=== PATIENT | female | born 1965 | race Caucasian/White ===

== ENCOUNTER 2023-02-13 01:55 | Inpatient (IN) | payer OTHER, SELFPAY ==
[2023-02-13] VITALS (39 sets, daily range): BP systolic 116–199; BP diastolic 84–132; PULSE 69–152; RESP 14–26; TEMP 36.2–37.2; O2SAT 74–99; BMI 27.2
--- NOTE | 2023-02-13 01:47 | CT_ITS ---
The [address] [address] Patient Name: ORESTES ALVARES MRN: [id number] date: 1965 Sex: F Assigned Patient Location: ER Current Patient Location: ER Accession/Order Number: [id number] Exam Date: 02/13/2023 02:20 Report Date: 02/13/2023 03:20 At the request of: GUERLINE VEGA Procedure: CT chest wo con EXAM: CT chest wo con, CT abdomen pelvis wo con HISTORY: fall 4 to 5 hours ago. COMPARISON: None. TECHNIQUE: Nonenhanced CT imaging of the chest, abdomen and pelvis was performed with sagittal and coronal reconstructions. Dose reduction techniques were achieved by using automated exposure control and/or adjustment of mA and/or kV according to patient size and/or use of iterative reconstruction technique. FINDINGS: CT CHEST: The exam is limited by the lack of IV contrast. No mediastinal injury is seen. Mild atherosclerotic calcifications are noted. The nonenhanced aorta and arch vessels are otherwise unremarkable. The heart is top normal in size. Prominent coronary arterial calcifications are present. There is no pericardial effusion. The thyroid gland appears normal. The lungs appear clear. A calcified left upper lobe granuloma is incidentally noted. No acute osseous injury is seen in the chest. CT ABDOMEN: The exam is limited by the lack of IV contrast. Solid organ lesions or acute abnormalities could be missed. Allowing for this, no acute solid organ injury is seen. The liver, gallbladder, pancreas, spleen, adrenal glands, stomach and small bowel are grossly unremarkable. Left renal cortical cysts measure up to 4.1 cm off the lateral midpole on image 43. A nonspecific small 0.7 cm hyperdense lateral left renal lesion on image 47 is likely a hemorrhagic cyst. Bilateral perinephric fat stranding is age-indeterminate but likely the sequela of prior infectious/inflammatory event. The kidneys are otherwise unremarkable. There are dense aortic calcifications without aneurysm. CT PELVIS: No acute pelvic organ injury is seen. The appendix, pelvic small bowel loops, and uterus are unremarkable. Sigmoid diverticulosis is noted. There is nonspecific wall thickening in the largely decompressed bladder. No free fluid, loculated fluid, free air or soft tissue gas is seen in the abdomen or pelvis. There is a nonacute largely healed fracture involving the right L2 transverse process on image 40 of series 6 with healed fractures involving the right L3 and L4 transverse processes. No acute osseous abnormality is seen in the abdomen or pelvis. CT/CT chest wo con IMPRESSION: 1. Allowing for exam limitations due to the lack of contrast, no acute traumatic change is seen in the chest, abdomen or pelvis. Chronic findings are described above. 2. Nonacute fractures involving the right L2-L4 transverse processes. Electronically authenticated by: RAINA HERNANDEZ Date: 02/13/2023 03:20
--- NOTE | 2023-02-13 01:47 | ECG_ITS ---
The [facility] Test Date: 2023-02-13 Pat Name: Juanita Redman Department: Room: - Gender: Female [employer]: : 1965 Requested By: MARIA DE JESUS ALVARADO Order Number: [id number] Reading MD: DEA LEDEZMA Measurements Intervals [place] Rate: 68 P: -[id number] CA: -74361 QRS: 29 QRSD: 74 T: 28 QT: 464 QTc: 482 Interpretive Statements 1210 Atrial fibrillation [address] depression, probably digitalis effect 8304 Long QTc interval 9150 abnormal ECG No previous ECG available for comparison Electronically Signed On 02-15-2023 7:01:52 EST by DEA LEDEZMA
--- NOTE | 2023-02-13 01:47 | CT_ITS ---
The [address] [address] Patient Name: ORESTES ALVARES MRN: [id number] date: 1965 Sex: F Assigned Patient Location: ER Current Patient Location: ER Accession/Order Number: [id number] Exam Date: 02/13/2023 02:20 Report Date: 02/13/2023 03:30 At the request of: GUERLINE VEGA Procedure: CT head/brain wo con EXAM: CT facial bones wo con, CT cervical spine wo con, CT head/brain wo con HISTORY: Fall roughly 4 to 5 hours ago. reports patient is confused. Facial injury COMPARISON: None. TECHNIQUE: Nonenhanced CT imaging of the head, facial bones and cervical spine was performed with sagittal and coronal reconstructions. Dose reduction techniques were achieved by using automated exposure control and/or adjustment of mA and/or kV according to patient size and/or use of iterative reconstruction technique. FINDINGS: CT HEAD: No intracranial hemorrhage, edema, mass effect or midline shift is seen. Physiologic calcifications are incidentally noted in the globi pallidi. A small 0.3 cm chronic lacunar infarct is seen in the right basal ganglia on image 23 of series 5. Age related diffuse brain atrophy is noted with corresponding prominence of the ventricles and extra-axial CSF spaces. The calvarium appears intact. There is a mild to moderate size left mastoid effusion. No temporal bone fracture is seen. No extracranial soft tissue gas, loculated fluid or foreign body is seen. CT FACIAL BONES: The orbital rims appear intact. The orbits are unremarkable. The mandible is intact with normal alignment of the temporomandibular joints. No acute dental trauma is seen. Scattered dental caries are noted with a prominent periapical lucency around the second right mandibular tricuspid. Age indeterminant right nasal bone fracture is noted with no overlying soft tissue swelling or subcutaneous gas. The nasal septum, zygomatic arches, pterygoid plates, hard palate and paranasal sinuses appear intact. Bilateral maxillary mucosal thickening is noted. Remaining paranasal sinuses are otherwise clear. No facial soft tissue gas, loculated fluid or foreign body is seen. CT CERVICAL SPINE: No acute osseous or articular abnormality is seen. The cervical vertebral bodies are normal in height and alignment. There is mild degenerative disease at C4 through C7. Skull base alignment is normal. The articular facets are normally aligned. On the left, there is mild neural foraminal stenosis at C3-C4 with moderate stenosis at C4-C5. Remaining neural foramina appear patent. No spinal canal stenosis is seen. Prominent bilateral carotid arterial calcifications are noted. The imaged lung apices are clear. CT/CT head/brain wo con IMPRESSION: 1. No calvarial fracture or acute intracranial abnormality. Chronic intracranial findings are described above. 2. Mild to moderate size left mastoid effusion. No temporal bone fracture identified. 3. Age indeterminant right nasal bone fracture, with no overlying soft tissue swelling or subcutaneous gas. Correlation for focal tenderness recommended. No other potential acute facial bone injury is seen. 4. Scattered dental caries with prominent periapical lucency around the second right mandibular tricuspid. Dental consultation recommended. 5. Chronic-appearing bilateral maxillary mucosal thickening. 6. No acute cervical abnormality. Chronic findings are described above. Electronically authenticated by: RAINA HERNANDEZ Date: 02/13/2023 03:30
--- NOTE | 2023-02-13 01:47 | CT_ITS ---
The [address] [address] Patient Name: ORESTES ALVARES MRN: [id number] date: 1965 Sex: F Assigned Patient Location: ER Current Patient Location: ER Accession/Order Number: [id number] Exam Date: 02/13/2023 02:20 Report Date: 02/13/2023 03:30 At the request of: GUERLINE VEGA Procedure: CT facial bones wo con EXAM: CT facial bones wo con, CT cervical spine wo con, CT head/brain wo con HISTORY: Fall roughly 4 to 5 hours ago. reports patient is confused. Facial injury COMPARISON: None. TECHNIQUE: Nonenhanced CT imaging of the head, facial bones and cervical spine was performed with sagittal and coronal reconstructions. Dose reduction techniques were achieved by using automated exposure control and/or adjustment of mA and/or kV according to patient size and/or use of iterative reconstruction technique. FINDINGS: CT HEAD: No intracranial hemorrhage, edema, mass effect or midline shift is seen. Physiologic calcifications are incidentally noted in the globi pallidi. A small 0.3 cm chronic lacunar infarct is seen in the right basal ganglia on image 23 of series 5. Age related diffuse brain atrophy is noted with corresponding prominence of the ventricles and extra-axial CSF spaces. The calvarium appears intact. There is a mild to moderate size left mastoid effusion. No temporal bone fracture is seen. No extracranial soft tissue gas, loculated fluid or foreign body is seen. CT FACIAL BONES: The orbital rims appear intact. The orbits are unremarkable. The mandible is intact with normal alignment of the temporomandibular joints. No acute dental trauma is seen. Scattered dental caries are noted with a prominent periapical lucency around the second right mandibular tricuspid. Age indeterminant right nasal bone fracture is noted with no overlying soft tissue swelling or subcutaneous gas. The nasal septum, zygomatic arches, pterygoid plates, hard palate and paranasal sinuses appear intact. Bilateral maxillary mucosal thickening is noted. Remaining paranasal sinuses are otherwise clear. No facial soft tissue gas, loculated fluid or foreign body is seen. CT CERVICAL SPINE: No acute osseous or articular abnormality is seen. The cervical vertebral bodies are normal in height and alignment. There is mild degenerative disease at C4 through C7. Skull base alignment is normal. The articular facets are normally aligned. On the left, there is mild neural foraminal stenosis at C3-C4 with moderate stenosis at C4-C5. Remaining neural foramina appear patent. No spinal canal stenosis is seen. Prominent bilateral carotid arterial calcifications are noted. The imaged lung apices are clear. CT/CT facial bones wo con IMPRESSION: 1. No calvarial fracture or acute intracranial abnormality. Chronic intracranial findings are described above. 2. Mild to moderate size left mastoid effusion. No temporal bone fracture identified. 3. Age indeterminant right nasal bone fracture, with no overlying soft tissue swelling or subcutaneous gas. Correlation for focal tenderness recommended. No other potential acute facial bone injury is seen. 4. Scattered dental caries with prominent periapical lucency around the second right mandibular tricuspid. Dental consultation recommended. 5. Chronic-appearing bilateral maxillary mucosal thickening. 6. No acute cervical abnormality. Chronic findings are described above. Electronically authenticated by: RAINA HERNANDEZ Date: 02/13/2023 03:30
--- NOTE | 2023-02-13 01:47 | CT_ITS ---
The [address] [address] Patient Name: ORESTES ALVARES MRN: [id number] date: 1965 Sex: F Assigned Patient Location: ER Current Patient Location: ER Accession/Order Number: [id number] Exam Date: 02/13/2023 02:20 Report Date: 02/13/2023 03:20 At the request of: GUERLINE VEGA Procedure: CT abdomen pelvis wo con EXAM: CT chest wo con, CT abdomen pelvis wo con HISTORY: fall 4 to 5 hours ago. COMPARISON: None. TECHNIQUE: Nonenhanced CT imaging of the chest, abdomen and pelvis was performed with sagittal and coronal reconstructions. Dose reduction techniques were achieved by using automated exposure control and/or adjustment of mA and/or kV according to patient size and/or use of iterative reconstruction technique. FINDINGS: CT CHEST: The exam is limited by the lack of IV contrast. No mediastinal injury is seen. Mild atherosclerotic calcifications are noted. The nonenhanced aorta and arch vessels are otherwise unremarkable. The heart is top normal in size. Prominent coronary arterial calcifications are present. There is no pericardial effusion. The thyroid gland appears normal. The lungs appear clear. A calcified left upper lobe granuloma is incidentally noted. No acute osseous injury is seen in the chest. CT ABDOMEN: The exam is limited by the lack of IV contrast. Solid organ lesions or acute abnormalities could be missed. Allowing for this, no acute solid organ injury is seen. The liver, gallbladder, pancreas, spleen, adrenal glands, stomach and small bowel are grossly unremarkable. Left renal cortical cysts measure up to 4.1 cm off the lateral midpole on image 43. A nonspecific small 0.7 cm hyperdense lateral left renal lesion on image 47 is likely a hemorrhagic cyst. Bilateral perinephric fat stranding is age-indeterminate but likely the sequela of prior infectious/inflammatory event. The kidneys are otherwise unremarkable. There are dense aortic calcifications without aneurysm. CT PELVIS: No acute pelvic organ injury is seen. The appendix, pelvic small bowel loops, and uterus are unremarkable. Sigmoid diverticulosis is noted. There is nonspecific wall thickening in the largely decompressed bladder. No free fluid, loculated fluid, free air or soft tissue gas is seen in the abdomen or pelvis. There is a nonacute largely healed fracture involving the right L2 transverse process on image 40 of series 6 with healed fractures involving the right L3 and L4 transverse processes. No acute osseous abnormality is seen in the abdomen or pelvis. CT/CT abdomen pelvis wo con IMPRESSION: 1. Allowing for exam limitations due to the lack of contrast, no acute traumatic change is seen in the chest, abdomen or pelvis. Chronic findings are described above. 2. Nonacute fractures involving the right L2-L4 transverse processes. Electronically authenticated by: RAINA HERNANDEZ Date: 02/13/2023 03:20
--- NOTE | 2023-02-13 01:49 | CT_ITS ---
The [address] [address] Patient Name: ORESTES ALVARES MRN: [id number] date: 1965 Sex: F Assigned Patient Location: ER Current Patient Location: ER Accession/Order Number: [id number] Exam Date: 02/13/2023 02:20 Report Date: 02/13/2023 03:30 At the request of: GUERLINE VEGA Procedure: CT cervical spine wo con EXAM: CT facial bones wo con, CT cervical spine wo con, CT head/brain wo con HISTORY: Fall roughly 4 to 5 hours ago. reports patient is confused. Facial injury COMPARISON: None. TECHNIQUE: Nonenhanced CT imaging of the head, facial bones and cervical spine was performed with sagittal and coronal reconstructions. Dose reduction techniques were achieved by using automated exposure control and/or adjustment of mA and/or kV according to patient size and/or use of iterative reconstruction technique. FINDINGS: CT HEAD: No intracranial hemorrhage, edema, mass effect or midline shift is seen. Physiologic calcifications are incidentally noted in the globi pallidi. A small 0.3 cm chronic lacunar infarct is seen in the right basal ganglia on image 23 of series 5. Age related diffuse brain atrophy is noted with corresponding prominence of the ventricles and extra-axial CSF spaces. The calvarium appears intact. There is a mild to moderate size left mastoid effusion. No temporal bone fracture is seen. No extracranial soft tissue gas, loculated fluid or foreign body is seen. CT FACIAL BONES: The orbital rims appear intact. The orbits are unremarkable. The mandible is intact with normal alignment of the temporomandibular joints. No acute dental trauma is seen. Scattered dental caries are noted with a prominent periapical lucency around the second right mandibular tricuspid. Age indeterminant right nasal bone fracture is noted with no overlying soft tissue swelling or subcutaneous gas. The nasal septum, zygomatic arches, pterygoid plates, hard palate and paranasal sinuses appear intact. Bilateral maxillary mucosal thickening is noted. Remaining paranasal sinuses are otherwise clear. No facial soft tissue gas, loculated fluid or foreign body is seen. CT CERVICAL SPINE: No acute osseous or articular abnormality is seen. The cervical vertebral bodies are normal in height and alignment. There is mild degenerative disease at C4 through C7. Skull base alignment is normal. The articular facets are normally aligned. On the left, there is mild neural foraminal stenosis at C3-C4 with moderate stenosis at C4-C5. Remaining neural foramina appear patent. No spinal canal stenosis is seen. Prominent bilateral carotid arterial calcifications are noted. The imaged lung apices are clear. CT/CT cervical spine wo con IMPRESSION: 1. No calvarial fracture or acute intracranial abnormality. Chronic intracranial findings are described above. 2. Mild to moderate size left mastoid effusion. No temporal bone fracture identified. 3. Age indeterminant right nasal bone fracture, with no overlying soft tissue swelling or subcutaneous gas. Correlation for focal tenderness recommended. No other potential acute facial bone injury is seen. 4. Scattered dental caries with prominent periapical lucency around the second right mandibular tricuspid. Dental consultation recommended. 5. Chronic-appearing bilateral maxillary mucosal thickening. 6. No acute cervical abnormality. Chronic findings are described above. Electronically authenticated by: RAINA HERNANDEZ Date: 02/13/2023 03:30
--- NOTE | 2023-02-13 01:56 | ED.AMS1 ---
HPI - Altered Mental Status General Chief Complaint: Fall Stated Complaint: other Time Seen by Provider: 02/13/23 02:41 Source: patient Source comment: EMS Mode of arrival: ambulance History of Present Illness HPI narrative: 58-year-old female to the emergency department with chief complaint of altered mental status. Patient is reported to have had a fall at home in the shower around four hours prior to arrival. Her last normal was unknown. EMS reports that both the patient and her are generally poor historians and little detail can be gleaned from their interviews. reports that the has had increasing confusion throughout the evening prompting the 911 call. Patient denies any pain. She denies any chest pain or shortness of breath. She denies any fever, sweats, chills. She reports nausea and diarrhea. Related Data Home Medications Medication Instructions Recorded Confirmed cariprazine 1.5 mg capsule 1.5 mg PO DAILY 02/13/23 02/13/23 (Vraylar) cholecalciferol (vitamin D3) 125 5,000 unit PO DAILY 02/13/23 02/13/23 mcg (5,000 unit) capsule levothyroxine 100 mcg tablet mcg 02/13/23 metoprolol succinate 100 mg mg PO 02/13/23 tablet,extended release 24 hr naltrexone 50 mg tablet 50 mg PO DAILY 02/13/23 02/13/23 thiamine mononitrate (vit B1) 100 100 mg PO DAILY 02/13/23 02/13/23 mg tablet Allergies Allergy/AdvReac Type Severity Reaction Status Date / Time cephalexin [From Keflex] Allergy Verified 02/13/23 01:54 Review of Systems ROS Status of ROS 10 or more systems reviewed and unremarkable except as noted in history and below [facility] Medical History (Updated 02/13/23 @ 04:08 by Reuben Benson MD) Alcohol abuse ?F10.10 - Alcohol abuse, uncomplicated (ICD-10) Hypertension ?I10 - Essential (primary) hypertension (ICD-10) Kidney failure ?N19 - Unspecified kidney failure (ICD-10) Social History Smoking status: Unknown if ever smoked Exam Narrative Exam Narrative: Primary Survey Airway Intact Lung sounds clear and equal bilaterally Pulses full and equal to femoral, radial, and dorsalis pedis bilaterally Heart regular rate and rhythm Skin warm, dry, pink GCS 14, confusion Movement and sensation intact to all extremities Patient Fully Exposed. Abrasions to the lower abdomen and left breast. Scattered abrasions and ecchymosis to the face. Numerous small bruises to the extremities in various stages of healing. Secondary Survey General: GCS 14; Alert but confused HEENT: Abrasions as above; Facial bones stable; Eyes normal inspection, Pupils round, 4-2mm blt; No evidence of oropharyngeal trauma; No blood in the nares or septal hematoma; Tympanic Membranes intact, no hemotympanum or drainage Neck: Normal inspection; no midline c-spine tenderness; No tracheal deviation; No JVD Resp: Normal breath sounds, no wheeze or crackles; No chest wall tenderness, crepitus, or subcutaneous emphysema; No visible evidence of chest wall trauma; Chest rise symmetric; No respiratory distress Heart: Heart rate and rhythm regular; Carotid, radial, femoral, dorsalis pedis pulses +2 and equal bilaterally; No Murmurs Abdomen: Soft; Non-tender; abrasions as above; No distention, guarding, rigidity, or rebound; Pelvis stable, no pain on compression MSK: All major joints with normal ROM. No deformities. No bony tenderness. No tenderness or step-offs to palpation of thoracic or lumbar spine; No ecchymosis or wounds to upper or lower back Neuro: Alert and oriented; Sensation intact and symmetric bilaterally; muscle strengths symmetric bilaterally in the upper and lower extremities. Skin: Color normal; No rash; Warm; Dry Constitutional Vital Signs, click to edit/add: Last Vital Signs Temp 97.7 F 02/13/23 01:48 Pulse 80 02/13/23 03:40 Resp 20 02/13/23 03:40 BP 187/128 H 02/13/23 03:31 Pulse Ox 74 L 02/13/23 02:10 O2 Del Method Room Air 02/13/23 01:48 Course Vital Signs Vital signs: Vital Signs Temperature 97.7 F 02/13/23 01:48 Pulse Rate 87 02/13/23 01:48 Respiratory Rate 16 02/13/23 01:48 Blood Pressure 182/125 H 02/13/23 01:48 Pulse Oximetry 98 02/13/23 01:48 Oxygen Delivery Method Room Air 02/13/23 01:48 Temperature 97.7 F 02/13/23 01:48 Pulse Rate 80 02/13/23 03:40 Respiratory Rate 20 02/13/23 03:40 Blood Pressure 187/128 H 02/13/23 03:31 Pulse Oximetry 74 L 02/13/23 02:10 Oxygen Delivery Method Room Air 02/13/23 01:48 MDM - Altered Mental Status MDM Narrative Medical decision making narrative: MDM Data External documents reviewed: [facility] Records. Previous [facility] admits and ED records. Hx of EtOH abuse and HypoNa. My EKG interpretation: Interpreted, as below My CT interpretation: Reviewed, as below My X-ray interpretation: Not applicable My Ultrasound interpretation: Not applicable Decision rules/scores evaluated: Not applicable Discussed with: Not applicable Treatment and Disposition ED Course: 58-year-old female to the emergency department with altered mental status and fall at home. Vital stable, the patient is afebrile. She is alert and oriented but situationally confused. She requires frequent re-prompting to follow commands. She has scattered abrasions and bruises. Patient reports that she drank several shots today, reports she has not drank in days. She reports that she has had Nausea/vomiting and diarrhea. She is a poor historian. Given her confusion, Reported fall/found down,skin abrasion/bruises will Utilize CT whole-body imaging for rapid evaluation of traumatic injuries. Ice labs ordered. Zofran and Valium were ordered for symptoms. I have a suspicion that she is in alcohol withdrawal. Fluids ordered. Will obtain CK level to eval for rhabdo given reported downtime. Reviewed and noted. She has significant hyponatremia. She is mildly hypokalemic. She has acute kidney injury, from review of her previous records from [facility] it appears as though her baseline renal function as creatinine 1.34 as of 03/2022. Normal troponin. ECG without evidence of ischemia. CT head: No acute findings. CT cervical spine: No acute findings CT Facial Bones: right nasal bone fracture CT C/A/P: No acute findings IV valium given for EtOH withdrawal. Initial CIWA 23. IV potassium, magnesium were ordered. Banana bag. No treatment needed acutely for nasal bone fracture, ENT follow-up as outpatient. Case discussed with Dr. Cristina, the hospitalist. Patient is admitted to the ICU for further care. Shared decision making: As above Code status: Not addressed during this visit Medical Records Attestation: I reviewed the patient's medical records. Lab Data Attestation: I reviewed the patient's lab results. Labs: Lab Results 02/13/23 02/13/23 Range/Units 02:07 02:09 WBC 11.3 H (4.0-11.0) 10^3/uL RBC 3.75 L (4.20-5.40) 10^6/uL Hgb 12.5 (12.0-16.0) g/dL Hct 36.3 (36.0-48.0) % MCV 96.8 (81.0-99.0) fL MCH 33.3 (26.7-34.0) pg MCHC 34.4 (29.9-35.2) g/dL RDW 13.4 (11.0-15.0) % Plt Count 254 (150-450) 10^3/uL MPV 9.2 L (9.5-13.5) fL Neut % (Auto) 78.4 H (43.0-75.0) % Lymph % (Auto) 12.4 L (20.5-60.0) % Mora % (Auto) 7.2 (1.7-12.0) % Eos % (Auto) 0.4 L (0.9-7.0) % Baso % (Auto) 0.4 (0.2-2.0) % Neut # (Auto) 8.9 H (1.4-6.5) 10^3/uL Lymph # (Auto) 1.4 (1.2-3.8) 10^3/uL Mora # (Auto) 0.8 (0.3-0.8) 10^3/uL Eos # (Auto) 0.1 (0.0-0.7) 10^3/uL Baso # (Auto) 0.1 (0.0-0.1) 10^3/uL Abs Immat Gran (auto) 0.14 H (0.00-0.03) 10^3/uL Imm/Tot Granulo (auto) 1.2 H (0.0-0.5) % PT 11.4 (9.0-11.6) sec INR 1.08 APTT 30.2 (22.3-36.2) sec Sodium 122 L* (136-145) mmol/L Potassium 3.3 L (3.5-5.1) mmol/L Chloride 87 L (98-107) mmol/L Carbon Dioxide 24.2 (21.0-32.0) mmol/L Anion Gap 14.1 BUN 24.0 H (7.0-18.0) mg/dL Creatinine 2.05 H (0.55-1.02) mg/dL Est GFR ( Amer) 30 L (>=60) Est GFR (Non-Af Amer) 25 L (>=60) BUN/Creatinine Ratio 11.7 Glucose 132 H (74-106) mg/dL Lactate 2.2 H* (0.4-2.0) mmol/L Calcium 6.1 L (8.5-10.1) mg/dL Magnesium 0.3 L* (1.8-2.4) mg/dL Total Bilirubin 0.9 (0.2-1.0) mg/dL AST 21 (15-37) U/L ALT 10 L (14-59) U/L Alkaline Phosphatase 73 (46-116) U/L Total Creatine Kinase 162 (26-192) U/L Troponin I High Sens 8.4 (4.0-51.3) pg/mL Total Protein 8.1 (6.4-8.2) g/dL Albumin 3.1 L (3.4-5.0) g/dL Globulin 5.0 g/dL Albumin/Globulin Ratio 0.6 Lipase 93.0 H (16.0-77.0) U/L Ethanol Quant <3 mg/dL POC Glucose 132 H (74-106) mg/dL ECG Data Attestation: I personally reviewed and interpreted this ECG as follows: (NSR at 68. Mildly prolonged QTc. No STEMI. ) Critical Care Time Critical Care Time Attestation: Critical Care Procedure Note Authorized and Performed by: Reuben Benson DO Total critical care time: 35 min Due to a high probability of clinically significant, life threatening deterioration, the patient required my highest level of preparedness to intervene emergently and I personally spent this critical care time directly and personally managing the patient. This critical care time included obtaining a history; examining the patient; pulse oximetry; ordering and review of studies; arranging urgent treatment with development of a management plan; evaluation of patient's response to treatment; frequent reassessment; and, discussions with other providers. This critical care time was performed to assess and manage the high probability of imminent, life-threatening deterioration that could result in multi-organ failure. It was exclusive of separately billable procedures and treating other patients and teaching time. Please see MDM section and the rest of the note for further information on patient assessment and treatment. Discharge Plan Discharge Chief Complaint: Fall Clinical Impression: Acute kidney injury, Alcohol withdrawal delirium, Fracture of nasal bone, Generalized weakness, Closed head injury, Hypoalbuminemia due to protein-calorie malnutrition, Accidental fall, Hypokalemia, Hypomagnesemia Prescriptions / Home Meds: No Action metoprolol succinate 100 mg tablet extended release 24 hr PO levothyroxine 100 mcg tablet naltrexone 50 mg tablet 50 mg PO DAILY Vraylar 1.5 mg capsule 1.5 mg PO DAILY cholecalciferol (vitamin D3) 125 mcg (5,000 unit) capsule 5,000 unit PO DAILY thiamine mononitrate (vit B1) 100 mg tablet 100 mg PO DAILY Referrals: MARIA DE JESUS ALVARADO [Primary Care Provider] - 1 week
[2023-02-13 02:08] LABS: Glucometer 132 mg/dL (74-106)
[2023-02-13] MEDS: ONDANSETRON PF 4 MG/2 ML VIAL IV (02:16)
[2023-02-13 02:19] LABS: Basophils Absolute Auto 0.1 10^3/uL (0.0-0.1); Basophils Percent Auto 0.4 % (0.2-2.0); Eosinophils Absolute Auto 0.1 10^3/uL (0.0-0.7); Eosinophils Percent Auto 0.4 % (0.9-7.0); Hematocrit 36.3 % (36.0-48.0); Hemoglobin 12.5 g/dL (12.0-16.0); Immature Granulocytes Abs Auto 0.14 10^3/uL (0.00-0.03); Immature Granulocytes Pct Auto 1.2 % (0.0-0.5); Lymphocytes Absolute Auto 1.4 10^3/uL (1.2-3.8); Lymphocytes Percent Auto 12.4 % (20.5-60.0); Mean Corpuscular HGB Conc 34.4 g/dL (29.9-35.2); Mean Corpuscular Hemoglobin 33.3 pg (26.7-34.0); Mean Corpuscular Volume 96.8 fL (81.0-99.0); Mean Platelet Volume 9.2 fL (9.5-13.5); Monocytes Absolute Auto 0.8 10^3/uL (0.3-0.8); Monocytes Percent Auto 7.2 % (1.7-12.0); Neutrophils Absolute Auto 8.9 10^3/uL (1.4-6.5); Neutrophils Percent Auto 78.4 % (43.0-75.0); Platelet Count 254 10^3/uL (150-450); Red Blood Count 3.75 10^6/uL (4.20-5.40); Red Cell Distribution Width 13.4 % (11.0-15.0); White Blood Count 11.3 10^3/uL (4.0-11.0)
[2023-02-13 02:34] LABS: INR 1.08; Partial Thromboplastin Time 30.2 sec (22.3-36.2); Prothrombin Time 11.4 sec (9.0-11.6)
[2023-02-13 02:37] LABS: Alanine Aminotransferase 10 U/L (14-59); Albumin Globulin Ratio 0.6; Albumin Level 3.1 g/dL (3.4-5.0); Alkaline Phosphatase 73 U/L (46-116); Anion Gap 14.1; Aspartate Amino Transferase 21 U/L (15-37); BUN Creatinine Ratio 11.7; Bilirubin Total 0.9 mg/dL (0.2-1.0); Calcium 6.1 mg/dL (8.5-10.1); Carbon Dioxide 24.2 mmol/L (21.0-32.0); Chloride 87 mmol/L (98-107); Estimated GFR (African America 30 (>=60); Estimated GFR (Non-African Ame 25 (>=60); Ethanol <3 mg/dL; Glucose 132 mg/dL (74-106); Potassium 3.3 mmol/L (3.5-5.1); Total Protein 8.1 g/dL (6.4-8.2); Troponin I High Sensitivity 8.4 pg/mL (4.0-51.3)
[2023-02-13 02:39] LABS: Creatine Kinase 162 U/L (26-192)
[2023-02-13 02:40] LABS: Magnesium 0.3 mg/dL (1.8-2.4); Sodium 122 mmol/L (136-145)
[2023-02-13 02:41] LABS: Lactate/Lactic Acid 2.2 mmol/L (0.4-2.0)
[2023-02-13] MEDS: 0.9 % SODIUM CHLORIDE 1,000 ML 999 ML IV (02:42)
[2023-02-13] MEDS: DIAZEPAM 5 MG/ML - 2 ML INJ SYRINGE IV ×2 (02:43→06:14)
[2023-02-13] MEDS: MAGNESIUM SULFATE IN WATER 2 GM/50 ML PREMIX IV (02:53)
[2023-02-13] MEDS: MULTIVIT INFUSN,ADULT 4,VIT K 10 ML, FOLIC ACID 1 MG, THIAMINE HCL 100 MG in DEXTROSE 5... 250 ML IV (02:56)
[2023-02-13] MEDS: POTASSIUM CHLORIDE IN WATER 10 MEQ/100 ML PIGGYBACK 100 MEQ IV ×2 (03:29→06:11)
[2023-02-13 05:26] LABS: Lactate/Lactic Acid 2.4 mmol/L (0.4-2.0)
[2023-02-13 05:38] LABS: Bilirubin Urine NEGATIVE (NEGATIVE); Blood Urine SMALL (NEGATIVE); Clarity Urine CLEAR (CLEAR); Color Urine YELLOW (YELLOW); Glucose Urine UA NEGATIVE (NEGATIVE); Ketones Urine NEGATIVE (NEGATIVE); Leukocyte Esterase Urine NEGATIVE (NEGATIVE); Nitrite Urine NEGATIVE (NEGATIVE); Protein Urine >=300 mg/dL (NEG/TRACE); pH Urine 6.5 (5.0-9.0)
[2023-02-13 05:40] LABS: Urine Microscopic Indicated YES
[2023-02-13 05:47] LABS: Bacteria Urine NONE SEEN #/HPF (NONE SEEN); RBC Urine 0-2 #/HPF (0-2); WBC Urine 0-2 #/HPF (NONE SEEN)
[2023-02-13 05:48] LABS: Cast Seen? NONE SEEN #/LPF (NONE SEEN); Crystals Seen? None Seen #/HPF (None Seen); Mucus Urine NONE SEEN (NONE SEEN); Squamous Epithelial Cell Urine FEW #/LPF (NONE/RARE); Urine Culture Indicated NO
[2023-02-13 05:49] LABS: Amphetamine Screen Urine NEGATIVE (NEGATIVE); Barbiturates Screen Urine NEGATIVE (NEGATIVE); Benzodiazepines Screen Urine NEGATIVE (NEGATIVE); Buprenorphine Screen Urine NEGATIVE (NEGATIVE); Cannabinoid Screen Urine NEGATIVE (NEGATIVE); Cocaine Screen Urine NEGATIVE (NEGATIVE); Methadone Screen Urine NEGATIVE (NEGATIVE); Methamphetamines Screen Urine NEGATIVE (NEGATIVE); Opiate Screen Urine NEGATIVE (NEGATIVE); Oxycodone Screen Urine NEGATIVE (NEGATIVE); Phencyclidine Screen Urine NEGATIVE (NEGATIVE); Tricyclic Antidepressant Urine NEGATIVE (NEGATIVE)
--- NOTE | 2023-02-13 05:56 | W.PM.TELEPN ---
Progress Note: Subjective Subjective Interval history: The patient is a 58-year-old female with a history of atrial fibrillation, alcohol dependence and depression, who is an extremely poor historian. She apparently fell at home. She was unable to get off the floor. Her later called 911. The patient did report that she has been having some episodes of vomiting and diarrhea a few days prior to arrival. In the ED, she was found to have a right nasal bone fracture. Initial lactate was 2.2. She was noted to have a sodium of 122, potassium 3.3 and a creatinine of 2.05. She was given IV fluids, magnesium, potassium and Valium. She still appears confused and is hard to keep focused for questioning. She is being admitted for further evaluation. Exam Narrative Exam Narrative: General : Alert and oriented x1 HEENT : Extraocular movements intact, pupils equal round and reactive to light and accommodation Neck: Supple, no JVD Chest: Clear to auscultation bilaterally, no wheezes Heart: Regular rate and rhythm, S1 and S2 heard Abdomen: Soft nontender nondistended. Extremities: No clubbing cyanosis or edema Neurologically: Moving all 4 extremities Skin: No rashes Constitutional Vital Signs, click to edit/add: Last Vital Signs Temp 98.2 F 02/13/23 05:06 Pulse 93 H 02/13/23 05:18 Resp 21 02/13/23 05:10 BP 151/97 H 02/13/23 05:06 Pulse Ox 96 02/13/23 05:06 O2 Del Method Room Air 02/13/23 05:06 Progress Note: Objective Labs Labs: Short CBC 02/13/23 Range/Units 02:09 WBC 11.3 H (4.0-11.0) 10^3/uL Hgb 12.5 (12.0-16.0) g/dL Hct 36.3 (36.0-48.0) % Plt Count 254 (150-450) 10^3/uL BMP 02/13/23 02:09 Sodium 122 L* Potassium 3.3 L Chloride 87 L Carbon Dioxide 24.2 BUN 24.0 H Creatinine 2.05 H Glucose 132 H Calcium 6.1 L Cardiac Enzymes 02/13/23 Range/Units 02:09 Total Creatine Kinase 162 (26-192) U/L Liver Function 02/13/23 Range/Units 02:09 Total Bilirubin 0.9 (0.2-1.0) mg/dL AST 21 (15-37) U/L ALT 10 L (14-59) U/L Alkaline Phosphatase 73 (46-116) U/L Albumin 3.1 L (3.4-5.0) g/dL Urine 02/13/23 Range/Units 05:25 Urine Color Yellow (YELLOW) Urine Clarity Clear (CLEAR) Urine pH 6.5 (5.0-9.0) Ur Specific [place] 1.020 (1.005-1.025) Urine Protein >=300 A (NEG/TRACE) mg/dL Urine Glucose (UA) Negative (NEGATIVE) mg/dL Progress Note: A&P Assessment and Plan (1) Alcohol withdrawal delirium: (2) Acute kidney injury: Plan The patient is a 58-year-old female with above medical problems, presenting with confusion. Acute metabolic encephalopathy -Appears to be multifactorial in the setting of hyponatremia, acute kidney injury and alcohol dependence -Provide supportive care -IV fluids -Assess baseline, will need to asked family members Hyponatremia -Continue normal saline -Follow-up BMP at 9 AM Hypokalemia -Follow-up BMP at 9 AM Hypomagnesemia -Likely from alcohol dependence -Magnesium replacement given in ED -Follow-up labs at 9 AM Acute kidney injury -Likely from dehydration -Continue IV fluids and monitor labs Nicotine dependence -Provide nicotine patch Alcohol dependence -Alcohol withdrawal protocol, Valium as needed Falls -Combination of above -PT evaluation Right nasal fracture -Provide supportive care DVT Prophylaxis -Lovenox, SCDs Medication review -Medication reconciliation form completed Goals of care -Full code Communications -Discussed with the emergency room physician -Discussed with the bedside nurse -Patient updated of plan of care, all questions answered to their satisfaction Disposition -Home when medically stable Telemedicine clause -As the provider of this telehealth evaluation, requested by the patient's evaluating physician, I attest that I introduced myself to the patient, provided my credentials and determined that telemedicine via a real-time, two-way interactive audio and video platform is an appropriate and effective means of providing this service. -I reviewed the patient's chart and had a discussion with the member of the patient's treatment team. -The patient and I mutually agreed with continuation of this evaluation via telemedicine. The patient consented for the telemedicine evaluation. -This virtual encounter was taken place from [place], [place]. The encounter was approximately 35 minutes. The nurse was present during the entire time of the encounter and was able to remove the stethoscope and appropriate directions. The patient was evaluated at [facility] Telemedicine Attestation Telemedicine Attestation I conducted this encounter from [] via secure live, [id number] video conference with the patient, located at [facility] with []. Prior to the interview, the risks and benefits of telemedicine were discussed with the patient and verbal consent was obtained.
[2023-02-13] MEDS: 0.9 % SODIUM CHLORIDE 1,000 ML 100 ML IV (06:12)
[2023-02-13] MEDS: ACETAMINOPHEN 325 MG TABLET 650 MG PO (06:13)
[2023-02-13] MEDS: CALCIUM CARBONATE 500 MG (200MG ELEMENTAL) TAB CHEW PO ×2 (06:15→11:06)
[2023-02-13] MEDS: NICOTINE 14 MG PATCH TD (06:17)
[2023-02-13] MEDS: GUAIFENESIN 600 MG TAB.ER.12H PO (06:18)
[2023-02-13 07:23] LABS: Anion Gap 16.3; BUN Creatinine Ratio 11.6; Chloride 92 mmol/L (98-107); Estimated GFR (African America 33 (>=60); Estimated GFR (Non-African Ame 27 (>=60); Glucose 152 mg/dL (74-106); Potassium 3.3 mmol/L (3.5-5.1); Sodium 127 mmol/L (136-145)
[2023-02-13 07:26] LABS: Calcium 5.7 mg/dL (8.5-10.1)
[2023-02-13] MEDS: THIAMINE MONONITRATE (VIT B1) 100 MG TABLET PO (09:58)
[2023-02-13] MEDS: CHOLECALCIFEROL (VITAMIN D3) 125 MCG/5000 UNIT TABLET PO ×2 (09:58→20:57)
[2023-02-13] MEDS: METOPROLOL SUCCINATE 100 MG TAB.ER.24H PO (09:58)
[2023-02-13 09:59] LABS: Alanine Aminotransferase <6 U/L (14-59); Albumin Globulin Ratio 0.6; Albumin Level 2.6 g/dL (3.4-5.0); Alkaline Phosphatase 59 U/L (46-116); Anion Gap 16.9; Aspartate Amino Transferase 25 U/L (15-37); BUN Creatinine Ratio 12.4; Bilirubin Total 0.9 mg/dL (0.2-1.0); Carbon Dioxide 19.8 mmol/L (21.0-32.0); Chloride 93 mmol/L (98-107); Estimated GFR (African America 33 (>=60); Estimated GFR (Non-African Ame 28 (>=60); Globulin 4.2 g/dL; Glucose 120 mg/dL (74-106); Potassium 3.7 mmol/L (3.5-5.1); Sodium 126 mmol/L (136-145); Total Protein 6.8 g/dL (6.4-8.2)
[2023-02-13] MEDS: ENOXAPARIN SODIUM 40 MG/0.4 ML SYRINGE SUBQ (09:59)
[2023-02-13 10:00] LABS: Phosphorus 4.1 mg/dL (2.6-4.7)
[2023-02-13 10:03] LABS: Ammonia 44 umol/L (11-32); Magnesium 0.9 mg/dL (1.8-2.4)
[2023-02-13 10:04] LABS: Calcium 5.9 mg/dL (8.5-10.1)
[2023-02-13] MEDS: LEVOTHYROXINE SODIUM 100 MCG TABLET PO (10:05)
[2023-02-13 10:28] LABS: Free T4 1.43 ng/dL (0.76-1.46)
--- NOTE | 2023-02-13 10:39 | XR_ITS ---
The [address] [address] Patient Name: ORESTES ALVARES MRN: [id number] date: 1965 Sex: F Assigned Patient Location: ICU Current Patient Location: ICU Accession/Order Number: [id number] Exam Date: 02/13/2023 12:05 Report Date: 02/13/2023 13:25 At the request of: BECCA JOHN Procedure: XR chest 1V EXAM: XR chest 1V HISTORY: jose lange COMPARISON: None. TECHNIQUE: Chest X-ray AP, 1 view FINDINGS: Support devices: None. Lungs/pleura: No consolidation, effusion, or pneumothorax. Heart and mediastinum: Normal contours. Bones: No acute abnormality identified. XR/XR chest 1V Impression: No radiographic evidence of acute cardiopulmonary process. Electronically authenticated by: MARIA DOLORES RUIZ Date: 02/13/2023 13:25
--- NOTE | 2023-02-13 11:01 | US_ITS ---
The [address] [address] Patient Name: ORESTES ALVARES MRN: [id number] date: 1965 Sex: F Assigned Patient Location: ICU Current Patient Location: ICU Accession/Order Number: [id number] Exam Date: 02/13/2023 15:10 Report Date: 02/13/2023 16:02 At the request of: SHAIKH KINGS Procedure: US right upper quadrant EXAM: US right upper quadrant HISTORY: Abnormal liver enzymes COMPARISON: None. TECHNIQUE: Limited ultrasound of the liver, utilizing grayscale and color Doppler imaging. FINDINGS: Right pleural space: Clear Liver: Normal size and echotexture. Gallbladder: No gallbladder wall thickening or cholelithiasis. Intrahepatic ducts: Normal caliber. Extra hepatic duct measures up to 3 mm Peritoneal space: No ascites. Pancreas: No abnormality demonstrated. Right kidney: Normal cortical echogenicity. No hydronephrosis. The right kidney measures 10.3 cm in length. Additional findings: None. US/US right upper quadrant IMPRESSION: No acute finding. Electronically authenticated by: MARIA DOLORES RUIZ Date: 02/13/2023 16:02
[2023-02-13] MEDS: LACTULOSE 10 GM/15 ML UD CUP 20 GM PO ×2 (11:06→20:56)
[2023-02-13] MEDS: MAGNESIUM SULFATE IN WATER 4 GM/100 ML PIGGYBACK IV (11:06)
[2023-02-13] MEDS: LORAZEPAM 1 MG TABLET 2 MG PO ×3 (11:13→19:34)
--- NOTE | 2023-02-13 11:28 | CM.NOTE ---
Rounds made with Dr. Red. Difficult to understand or comprehend what Mark Юлия is saying. No plan for discharge today.
--- NOTE | 2023-02-13 11:48 | P.HP_ITS ---
Patient seen and examined. Agree with history, physical exam, ROS, assessment and plan. Case d/w DALLAS Mallory. - Hepatic encephalopathy - Alcohol withdrawal - Hyponatremia, hypomangesemia, hypocalcemia - DASHAWN - Generalized weakness/weakness. -Lactic acidosis - CLAY - Hypythroidism Exam Neuro Exam: Confused, disoriented, disorganized speech. Sometimes difficult to comprehend. Moving all 4 extremities. Tremulous at rest. Appears diaphoretic. Resp: CTA b/l, no wheezing GI: NT, ND, BS +ve C/w current treatment as outlined above by Shawnee Ativan 2 mg PO q4 along 2 mg q2 as needed for alcohol withdrawal. IV Diazepam as needed when patient is unable to take PO. US abd to assess Liver/GB. Lactulose for Hyperammonimea Slow IV hydration for Hyponatremia to avoid overcorrection. H&P: HPI History of Present Illness Chief complaint: AMS/Falls Narrative: Date/time of exam: 02/13/23 1030 This is a 58-year-old female patient with a past medical history as outlined below including chronic EtOH abuse, HTN, hypothyroidism, and anxiety; Who presented to the ED last night via EMS at the request of her due to increased confusion and falls. Both patient and spouse are very poor historians and unable to give a clear history of events or timeline. There was concern in the ED that the patient had been lying on the ground for more than 12 hours based on the 's explanation of events. Work-up in the ED revealed hyponatremia (122), hypokalemia (3.3), hypomagnesemia (0.3), hypocalcemia (CC 6.8), and DASHAWN (BUN 24, CR 2.05, EGFR 25). Lipase was also elevated (93), as was a TSH (8.46). Lactic acid was also elevated and remained flat (2.2, 2.4). Imaging of the head, cervical spine, face, chest abdomen and pelvis were mostly negative for acute findings except for a right nasal bone fracture. The patient completely denies any falls and denies any confusion although her answers clearly are at times inappropriate and garbled with nonsensical speech at times. She was admitted as an inpatient to the hospitalist service overnight for the above abnormalities. At the time of my exam the patient is resting comfortably in bed. She continues to be somewhat disoriented and her answers to questions are unreliable and her speech is at times nonsensical. She reports frequent diarrhea but is unable to clearly describe it or even confirm this was recently. She reports drinking 3-4 shots per day of Aqua Blue, but I suspect her shots are likely double shots in practice. Although her liver enzymes are WNL, her behavior is somewhat concerning for hyperammonemia. An ammonia level was added to a.m. labs and was found to be elevated at 44. In addition, repeat electrolyte labs this morning revealed persistent hypomagnesemia that is severe (0.9) despite mag sulfate administered in the ED. I discussed alcohol cessation with the patient and she is open to further inpatient alcohol treatment which she has done in the past. She verbalizes that it is going to kill me if she does not stop drinking. Review of Systems ROS Status of ROS 10 or more systems reviewed and unremarkable except as noted in history and below PFSH PFSH Medical History Alcohol abuse ?F10.10 - Alcohol abuse, uncomplicated (ICD-10) Anxiety and depression ?F41.9 - Anxiety disorder, unspecified (ICD-10) ?F32.A - Depression, unspecified (ICD-10) Atrial fibrillation ?I48.91 - Unspecified atrial fibrillation (ICD-10) Hypertension ?I10 - Essential (primary) hypertension (ICD-10) Hypothyroidism ?E03.9 - Hypothyroidism, unspecified (ICD-10) Kidney failure ?N19 - Unspecified kidney failure (ICD-10) Smoker ?F17.200 - Nicotine dependence, unspecified, uncomplicated (ICD-10) Surgical History (Updated 02/13/23 @ 06:02 by Beth Frank) S/P ablation of atrial fibrillation ?Z98.890 - Other specified postprocedural states (ICD-10) ?Z86.79 - Personal history of other diseases of the circulatory system (ICD- 10) Family History (Updated 02/13/23 @ 06:09 by Beth Frank) Father Family history of CHF (congestive heart failure) Family history of diabetes mellitus Family history of hypertension Family history of myocardial infarction Mother Family history of cancer Family history of diabetes mellitus Family history of hypertension Family history of myocardial infarction Brother Family history of hypertension Family history of myocardial infarction Other Family history of COPD (chronic obstructive pulmonary disease) Social History (Updated 11/06/23 @ 12:14 by Shawnee Duke NP) Smoking status: Current every day smoker Meds Home Medications and Allergies Home Medications Medication Instructions Recorded Confirmed Type cariprazine 1.5 mg capsule 1.5 mg PO DAILY 02/13/23 02/13/23 History (Vraylar) cholecalciferol (vitamin D3) 125 5,000 unit PO DAILY 02/13/23 02/13/23 History mcg (5,000 unit) capsule levothyroxine 100 mcg tablet 100 mcg PO DAILY 02/13/23 02/13/23 History metoprolol succinate 100 mg 100 mg PO DAILY 02/13/23 02/13/23 History tablet,extended release 24 hr naltrexone 50 mg tablet 50 mg PO DAILY 02/13/23 02/13/23 History thiamine mononitrate (vit B1) 100 100 mg PO DAILY 02/13/23 02/13/23 History mg tablet Allergies Allergy/AdvReac Type Severity Reaction Status Date / Time cephalexin [From Keflex] Allergy Verified 02/13/23 01:54 Exam Constitutional Vital Signs, click to edit/add: Last Vital Signs Temp 98.9 F 02/13/23 08:00 Pulse 88 02/13/23 10:00 Resp 16 02/13/23 08:00 BP 166/97 H 02/13/23 08:00 Pulse Ox 96 02/13/23 10:00 O2 Del Method Room Air 02/13/23 08:00 Common normals: no apparent distress, alert and well nourished General appearance: cooperative Orientation/consciousness: Yes awake, Yes oriented to person and Yes confused [facility] Common normals: normocephalic, hearing grossly normal bilaterally, external ears normal, external nose normal and moist oral mucous membranes Head and scalp: abrasion (R upper lip, scattered BUE, BLE) Face and sinus: facial tenderness (paranasal) on the right Eye Common normals: PERRL, EOMs intact bilaterally, conjunctivae normal and no scleral icterus General eye: normal appearance of both eyes Neck & C-Spine Common normals: full ROM, supple and no JVD Chest Common normals: inspection of chest normal Chest: symmetrical chest wall rise Respiratory Common normals: normal respiratory effort, no retractions and no use of accessory muscles Effort & inspection: able to speak in complete sentences Auscultation: rhonchi (Scattered throughout) Cardio Common normals: no JVD, regular rate, S1 normal heart sound, S2 normal heart sound, no gallops, no clicks, no murmurs, no rub and peripheral pulses 2+ throughout Rhythm: abnormal rhythm irregularly irregular GI Common normals: Normal to inspection, nondistended, normoactive bowel sounds present, soft to palpation, non-tender, no hepatosplenomegaly, no masses and no bruits Bladder/kidney exam: bladder normal to palpation Bimanual exam- vagina & uterus: bladder normal to palpation Back & Pelvis Common normals: thoracic and lumbar spine normal to inspection Extremity Common normals: normal capillary refill and no pedal edema General: normal exam except as noted; no clubbing and no cyanosis Neuro Pillager Coma Scale: GCS not evaluated Common normals: oriented x3, CN's II-XII intact bilaterally, moves all extremities, no focal motor deficits and no sensory deficits noted Motor exam: strength 5/5 throughout Other: Chvostek's Sign - equivocally positive on the right, negative on the left. Inconclusive. Psych Common normals: affect normal and activity/motor behavior normal Speech: incoherent (at times) Mood and affect: depressed mood Thought process: disorganized and confused Attention/concentration: attention grossly intact Memory/cognition: memory grossly impaired Insight: limited Judgement: limited Results Labs Labs: Short CBC 02/13/23 Range/Units 02:09 WBC 11.3 H (4.0-11.0) 10^3/uL Hgb 12.5 (12.0-16.0) g/dL Hct 36.3 (36.0-48.0) % Plt Count 254 (150-450) 10^3/uL BMP 02/13/23 02/13/23 02/13/23 02:09 04:51 09:35 Sodium 122 L* 127 L 126 L Potassium 3.3 L 3.3 L 3.7 Chloride 87 L 92 L 93 L Carbon Dioxide 24.2 22.0 19.8 L BUN 24.0 H 22.0 H 23.0 H Creatinine 2.05 H 1.89 H 1.86 H Glucose 132 H 152 H 120 H Calcium 6.1 L 5.7 L* 5.9 L* Cardiac Enzymes 02/13/23 Range/Units 02:09 Total Creatine Kinase 162 (26-192) U/L Liver Function 02/13/23 02/13/23 Range/Units 02:09 09:35 Total Bilirubin 0.9 0.9 (0.2-1.0) mg/dL AST 21 25 (15-37) U/L ALT 10 L <6 L (14-59) U/L Alkaline Phosphatase 73 59 (46-116) U/L Albumin 3.1 L 2.6 L (3.4-5.0) g/dL Urine 02/13/23 Range/Units 05:25 Urine Color Yellow (YELLOW) Urine Clarity Clear (CLEAR) Urine pH 6.5 (5.0-9.0) Ur Specific [place] 1.020 (1.005-1.025) Urine Protein >=300 A (NEG/TRACE) mg/dL Urine Glucose (UA) Negative (NEGATIVE) mg/dL Pulse Oximetry Attestation: I have reviewed the pertinent pulse oximetry results. ECG Attestation: ?I have reviewed the pertinent ECG results. Interpretation: Impression: Atrial fibrillation Moderate ST depression, probably digitalis effect Long QTc interval Imaging CT Head/Face/Cervical Sp/Abd/Pelvis: Radiologist's impression: IMPRESSION: 1. No calvarial fracture or acute intracranial abnormality. Chronic intracranial findings are described above. 2. Mild to moderate size left mastoid effusion. No temporal bone fracture identified. 3. Age indeterminant right nasal bone fracture, with no overlying soft tissue swelling or subcutaneous gas. Correlation for focal tenderness recommended. No other potential acute facial bone injury is seen. 4. Scattered dental caries with prominent periapical lucency around the second right mandibular tricuspid. Dental consultation recommended. 5. Chronic-appearing bilateral maxillary mucosal thickening. 6. No acute cervical abnormality. Chronic findings are described above. Additional Findings Additional findings: I have personally reviewed the historical documentation for this patient Assessment and Plan Assessment and Plan (1) Alcohol withdrawal delirium: Assessment and Plan: ACUTE * Adm inpatient * High seizure risk from DT's * Seizure precautions * CIWA scores q4h * PRN IVP Valium * Consider scheduled librium or adding PRN haldol pending clinical course * Continue home thiamine, increase home Vit D3 (2) Acute metabolic encephalopathy: Assessment and Plan: ACUTE * Suspect 2/2 EtOH w/d delirium and/or electrolyte disturbances * Pt with poor/inaccurate history of recent events - unreliable historian (3) Acute kidney injury: Assessment and Plan: ACUTE on CHRONIC * Assumed DASHAWN in ED with no recent labs found in EMR * Further review of more remote medical history from [id number] reveals chronic CKD4 * Likely dehdrated * Daily CMP * Consider nephrology consult pending clinical course (4) Accidental fall: Assessment and Plan: ACUTE * Pt categorically denies falls, but family reports otherwise * Acute R nasal fracture noted on CT Face imaging, along with facial abrasions noted supporting report of frequent falls * PT/OT consults (5) Fracture of nasal bone: Assessment and Plan: ACUTE * Supportive care (6) Generalized weakness: Assessment and Plan: ACUTE * Multifactorial * Short term SNF stay after discharge may be indicated for strengthening (7) Hyponatremia: Assessment and Plan: ACUTE * Likely 2/2 chronic EtOH abuse (beer potomania) and dehydration * 122 in ED, now 126 after IVF administration overnight * Reduce IVF rate to 75/hr to avoid ODS from rapid correction * Repeat BMP later today and daily CMP (8) Hypokalemia: Assessment and Plan: ACUTE * Mild - 3.3 today * D/C IVF w/ KCL additive * Give 40 mEq KCL PO * Repeat BMP this afternoon to monitor - further repletion if indicated * CMP in AM (9) Hypomagnesemia: Assessment and Plan: ACUTE * Critically low at 0.3 in ED, only 0.9 on repeat labs this AM after 2gm Mag Sulfate given in ED * Give additional 4gm Mag Sulfate IVPB over 4 hrs * Repeat mag level 30 post infusion * further repletion as indicated * Tele monitoring (10) Hypocalcemia: Assessment and Plan: ACUTE * Corrected calcium 6.8, 7.0 * Asymptomatic vs equivocally mild symptoms * Likely 2/2 severely low magnesium levels, EtOH abuse, and poor diet * Replete Mag as above * Increase Vit D3 to BID dosing * Repeat BMP this afternoon * Consider calcium gluconate pending clinical course (11) Hyperammonemia: Assessment and Plan: ACUTE * No known hx of cirrhosis or liver dysfunction, but with significant EtOH abuse hx liver disease would not be surprising * w/ unexplained encephalopathy, Ammonia added on to AM labs * Elevated at 44 * Lactulose 20 gm BID * Repeat ammonia level in AM (12) Hypoalbuminemia due to protein-calorie malnutrition: Assessment and Plan: ACUTE ON CHRONIC * 2/2 to chronic EtOH abuse and poor dietary intake * Consider dietary consult pending clinical course once mentation improves (13) Atrial fibrillation: Assessment and Plan: CHRONIC * Continue home BB for rate control * Not on anticoagulation and pt is a poor candidate d/t EtOH abuse and frequent falls * Tele monitoring (14) Hypertension: Assessment and Plan: CHRONIC * Continue home BB (15) Hypothyroidism: Assessment and Plan: CHRONIC * TSH elevated at 8.46 but we suspect poor compliance to med regimen * Check FT4 and T3 * Continue home levothyroxine dose and consider increasing pending clinical course (16) Anxiety and depression: Assessment and Plan: CHRONIC * Continue home Vraylar Plan I spent more than 90 minutes on this admission including extensive review of historical documentation, coordination of care, and interviewing the patient.
[2023-02-13] MEDS: LACTATED RINGER'S SOLUTION 1,000 ML 75 ML IV (13:40)
--- NOTE | 2023-02-13 15:44 | CM.NOTE ---
Talked with pt regarding alcohol rehab, pt states she has been to [email or web address] in [place] in the past. Pt does verbalize that she needs help but is not sure she is ready to go back to rehab at this time. Pt would like to speak with her family and Case Management will stop back to talk tomorrow.
--- NOTE | 2023-02-13 16:55 | CM.NOTE ---
Called [facility] for new referral and faxed clinical.
[2023-02-13 17:34] LABS: Anion Gap 14.3; BUN Creatinine Ratio 11.6; Calcium 6.1 mg/dL (8.5-10.1); Carbon Dioxide 20.7 mmol/L (21.0-32.0); Chloride 94 mmol/L (98-107); Estimated GFR (African America 33 (>=60); Estimated GFR (Non-African Ame 27 (>=60); Glucose 112 mg/dL (74-106); Magnesium 2.8 mg/dL (1.8-2.4); Sodium 126 mmol/L (136-145)
[2023-02-13] MEDS: POTASSIUM CHLORIDE 10 MEQ ER TABLET 40 MEQ PO (19:35)
[2023-02-13] MEDS: CALCIUM GLUC IN NACL, ISO-OSM 1 GM/50 ML PLAST..BAG IV ×2 (19:36→19:41)
[2023-02-13 22:16] LABS: BUN Creatinine Ratio 10.2; Calcium 6.8 mg/dL (8.5-10.1); Carbon Dioxide 18.4 mmol/L (21.0-32.0); Chloride 96 mmol/L (98-107); Estimated GFR (African America 35 (>=60); Estimated GFR (Non-African Ame 29 (>=60); Glucose 95 mg/dL (74-106); Potassium 3.4 mmol/L (3.5-5.1); Sodium 127 mmol/L (136-145)
[2023-02-14] VITALS (15 sets, daily range): BP systolic 116–164; BP diastolic 84–114; PULSE 67–88; RESP 16–24; TEMP 36.1–36.8; O2SAT 96–100
[2023-02-14] MEDS: LACTATED RINGER'S SOLUTION 1,000 ML 75 ML IV ×2 (02:58→17:28)
[2023-02-14] MEDS: ACETAMINOPHEN 325 MG TABLET 650 MG PO (03:28)
[2023-02-14 05:09] LABS: Triiodothyronine (T3) 70 ng/dL (71-180)
[2023-02-14 05:44] LABS: Basophils Percent Auto 0.3 % (0.2-2.0); Eosinophils Percent Auto 0.1 % (0.9-7.0); Hematocrit 26.8 % (36.0-48.0); Immature Granulocytes Abs Auto 0.05 10^3/uL (0.00-0.03); Immature Granulocytes Pct Auto 0.7 % (0.0-0.5); Lymphocytes Absolute Auto 1.1 10^3/uL (1.2-3.8); Mean Corpuscular HGB Conc 33.6 g/dL (29.9-35.2); Mean Corpuscular Hemoglobin 33.2 pg (26.7-34.0); Mean Corpuscular Volume 98.9 fL (81.0-99.0); Mean Platelet Volume 9.2 fL (9.5-13.5); Monocytes Absolute Auto 1.2 10^3/uL (0.3-0.8); Monocytes Percent Auto 17.1 % (1.7-12.0); Neutrophils Absolute Auto 4.4 10^3/uL (1.4-6.5); Neutrophils Percent Auto 65.8 % (43.0-75.0); Platelet Count 178 10^3/uL (150-450); Red Blood Count 2.71 10^6/uL (4.20-5.40); Red Cell Distribution Width 13.9 % (11.0-15.0); White Blood Count 6.7 10^3/uL (4.0-11.0)
[2023-02-14 05:51] LABS: Ammonia <10 umol/L (11-32)
[2023-02-14] MEDS: NICOTINE 14 MG PATCH TD (05:53)
[2023-02-14] MEDS: LEVOTHYROXINE SODIUM 100 MCG TABLET PO (05:54)
[2023-02-14 06:03] LABS: Phosphorus 3.6 mg/dL (2.6-4.7)
[2023-02-14 06:14] LABS: Alanine Aminotransferase 11 U/L (14-59); Albumin Globulin Ratio 0.6; Albumin Level 2.4 g/dL (3.4-5.0); Alkaline Phosphatase 57 U/L (46-116); Anion Gap 15.6; Aspartate Amino Transferase 19 U/L (15-37); BUN Creatinine Ratio 9.6; Bilirubin Total 0.8 mg/dL (0.2-1.0); Calcium 6.8 mg/dL (8.5-10.1); Carbon Dioxide 21.2 mmol/L (21.0-32.0); Chloride 97 mmol/L (98-107); Estimated GFR (African America 31 (>=60); Estimated GFR (Non-African Ame 26 (>=60); Globulin 3.9 g/dL; Glucose 112 mg/dL (74-106); Potassium 3.8 mmol/L (3.5-5.1); Sodium 130 mmol/L (136-145); Total Protein 6.3 g/dL (6.4-8.2)
[2023-02-14] MEDS: LORAZEPAM 1 MG TABLET 2 MG PO (08:01)
[2023-02-14] MEDS: CHOLECALCIFEROL (VITAMIN D3) 125 MCG/5000 UNIT TABLET PO ×2 (08:01→20:19)
[2023-02-14] MEDS: METOPROLOL SUCCINATE 100 MG TAB.ER.24H PO (08:01)
[2023-02-14] MEDS: THIAMINE MONONITRATE (VIT B1) 100 MG TABLET PO (08:01)
[2023-02-14] MEDS: ENOXAPARIN SODIUM 40 MG/0.4 ML SYRINGE SUBQ (08:02)
[2023-02-14 08:11] LABS: Vitamin D, 25-Hydroxy 27.2 ng/mL (30.0-100.0)
--- NOTE | 2023-02-14 11:14 | P.PN_ITS ---
Patient seen and examined. Case d/w DALLAS Mallory. Agree with her findings, treatment plan, also noted below Exam: Comfortable, on chair, NAD Normal RR, but coarse breath sounds and rales throughout AAOx 3, but still confused, poor insight. Assessment and plan Metabolic/hepatic encephalopathy Alcohol withdrawal Hyponatremia, hypomangesemia, hypoclacemia Afib Doing better. More appropriate from neurological point of view. But still quite confused, impaired insight, and judgement. Will d/c scheduled dose of Ativan. C/w ativan PRN. Suspect some of her confusion could be medication induced. Weak, poor co ordination, unsteady gait - will need rehab placement. Ordered CXR for abnormal lung auscultation Progress Note: Subjective Subjective Interval history: Date/time of exam: 02/14/23 0910 The patient is sitting up in bed at the time of my exam. She is much more awake, alert, and oriented today than yesterday. She continues to deny any recent falls despite her nasal fracture, but she is oriented x3. She is requesting to be allowed to go outside to smoke a cigarette which we are unable to accommodate. Her ammonia level has resolved to normal today and her electrolytes are significantly improved. She remains at risk for further electrolyte disturbances and we will continue to monitor her sodium, potassium, magnesium, and calcium. Disposition: Discharge likely in the next 24 to 48 hours pending clinical course. We are attempting to place the patient in a SNF for rehab strengthening as she is significantly deconditioned. Exam Constitutional Vital Signs, click to edit/add: Last Vital Signs Temp 98.1 F 02/14/23 08:00 Pulse 86 02/14/23 10:00 Resp 24 02/14/23 03:56 BP 164/114 H 02/14/23 03:56 Pulse Ox 96 02/14/23 03:56 O2 Del Method Room Air 02/14/23 08:00 Common normals: no apparent distress, oriented x3 and alert General appearance: cooperative Orientation/consciousness: Yes awake HENMT Common normals: normocephalic, head/scalp atraumatic and hearing grossly normal bilaterally Head and scalp: normocephalic and atraumatic Eye Common normals: PERRL, EOMs intact bilaterally, conjunctivae normal and no scleral icterus General eye: normal appearance of both eyes Conjunctiva: conjunctiva(e) normal Pupil: PERRL Chest Common normals: inspection of chest normal Chest: symmetrical chest wall rise Respiratory Common normals: normal respiratory effort and no use of accessory muscles Effort & inspection: able to speak in complete sentences Auscultation: rhonchi (Scattered. Improved) Cardio Common normals: regular rate, regular rhythm, S1 normal heart sound, S2 normal heart sound, no murmurs and peripheral pulses 2+ throughout GI Common normals: Normal to inspection, nondistended, normoactive bowel sounds present, soft to palpation, non-tender and no hepatosplenomegaly Bladder/kidney exam: bladder normal to palpation Extremity Common normals: normal to inspection and no calf tenderness General: no clubbing, no cyanosis and no edema Neuro Common normals: oriented x3, CN's II-XII intact bilaterally, moves all extremities, no focal motor deficits and no sensory deficits noted Sensorium/orientation: awake and alert Psych Common normals: mental status grossly normal Progress Note: Objective Labs Labs: Short CBC 02/14/23 Range/Units 05:23 WBC 6.7 (4.0-11.0) 10^3/uL Hgb 9.0 L (12.0-16.0) g/dL Hct 26.8 L (36.0-48.0) % Plt Count 178 (150-450) 10^3/uL BMP 02/13/23 02/13/23 02/14/23 16:32 22:03 05:23 Sodium 126 L 127 L 130 L Potassium 3.0 L 3.4 L 3.8 Chloride 94 L 96 L 97 L Carbon Dioxide 20.7 L 18.4 L 21.2 BUN 22.0 H 18.0 19.0 H Creatinine 1.90 H 1.77 H 1.98 H Glucose 112 H 95 112 H Calcium 6.1 L 6.8 L 6.8 L Liver Function 02/14/23 Range/Units 05:23 Total Bilirubin 0.8 (0.2-1.0) mg/dL AST 19 (15-37) U/L ALT 11 L (14-59) U/L Alkaline Phosphatase 57 (46-116) U/L Albumin 2.4 L (3.4-5.0) g/dL Progress Note: A&P Assessment and Plan (1) Alcohol withdrawal delirium: Assessment and Plan: ACUTE * Resolving * High seizure risk from DT's * Seizure precautions * CIWA scores q4h * Continue PRN IVP Valium * Consider scheduled librium or adding PRN haldol pending clinical course - not clinically indicated at this time * Continue home thiamine, increase home Vit D3 (2) Acute metabolic encephalopathy: Assessment and Plan: ACUTE * Suspect hepatic encephalopathy 2/2 EtOH abuse/withdrawal delirium and/or electrolyte disturbances * Resolving - see hyperammonemia (3) Acute kidney injury: Assessment and Plan: ACUTE on CHRONIC * Improving * Further review of more remote medical history from [id number] reveals chronic CKD4 * Improving dehdration * Daily CMP * Consider nephrology consult pending clinical course - not clinically indicated at this time (4) Accidental fall: Assessment and Plan: ACUTE * Pt categorically denies falls, but family reports otherwise * Acute R nasal fracture noted on CT Face imaging, along with facial abrasions noted supporting report of frequent falls * PT/OT consults * Plan d/c to local SNF for further strengthening as pt is very deconditioned (5) Fracture of nasal bone: Assessment and Plan: ACUTE * Supportive care (6) Generalized weakness: Assessment and Plan: ACUTE * Multifactorial * Short term SNF stay after discharge likely indicated for strengthening (7) Hyponatremia: Assessment and Plan: ACUTE * Improving * Likely 2/2 chronic EtOH abuse (beer potomania) and dehydration * 130 today * Continue IVF at 75/hr to avoid ODS from rapid correction * Daily CMP (8) Hypokalemia: Assessment and Plan: ACUTE * Resolving * 3.8 today * At risk for recurrence w/ EtOH abuse hx * CMP in AM (9) Hypomagnesemia: Assessment and Plan: ACUTE * Resolving * 2.0 today * At risk for recurrence w/ EtOH abuse hx * Tele monitoring (10) Hypocalcemia: Assessment and Plan: ACUTE * Improving * Corrected calcium 8.1 today * Likely 2/2 severely low magnesium levels, EtOH abuse, and poor diet * Continue Vit D3 w/ BID dosing * Daily CMP * Consider calcium gluconate pending clinical course - Not clinically indicated at this time (11) Hyperammonemia: Assessment and Plan: ACUTE * Resolved * Ammonia < 10 today * No known hx of cirrhosis or liver dysfunction, but with significant EtOH abuse hx liver disease would not be surprising * * Repeat ammonia level in AM (12) Hypoalbuminemia due to protein-calorie malnutrition: Assessment and Plan: ACUTE ON CHRONIC * 2/2 to chronic EtOH abuse and poor dietary intake * Consider dietary consult pending clinical course once mentation improves (13) Atrial fibrillation: Assessment and Plan: CHRONIC * Continue home BB for rate control * Not on anticoagulation and pt is a poor candidate d/t EtOH abuse and frequent falls * Tele monitoring (14) Hypertension: Assessment and Plan: CHRONIC * Continue home BB (15) Hypothyroidism: Assessment and Plan: CHRONIC * TSH elevated at 8.46 but we suspect poor compliance to med regimen * Check FT4 and T3 - WNL * Continue home levothyroxine dose and consider increasing pending clinical course (16) Anxiety and depression: Assessment and Plan: CHRONIC * Continue home Vraylar
--- NOTE | 2023-02-14 11:14 | PM.PN ---
Progress Note: Subjective Subjective Interval history: Date/time of exam: 02/14/23 0910 The patient is sitting up in bed at the time of my exam. She is much more awake, alert, and oriented today than yesterday. She continues to deny any recent falls despite her nasal fracture, but she is oriented x3. She is requesting to be allowed to go outside to smoke a cigarette which we are unable to accommodate. Her ammonia level has resolved to normal today and her electrolytes are significantly improved. She remains at risk for further electrolyte disturbances and we will continue to monitor her sodium, potassium, magnesium, and calcium. Disposition: Discharge likely in the next 24 to 48 hours pending clinical course. We are attempting to place the patient in a SNF for rehab strengthening as she is significantly deconditioned. Exam Constitutional Vital Signs, click to edit/add: Last Vital Signs Temp 98.1 F 02/14/23 08:00 Pulse 86 02/14/23 10:00 Resp 24 02/14/23 03:56 BP 164/114 H 02/14/23 03:56 Pulse Ox 96 02/14/23 03:56 O2 Del Method Room Air 02/14/23 08:00 Common normals: no apparent distress, oriented x3 and alert General appearance: cooperative Orientation/consciousness: Yes awake HENMT Common normals: normocephalic, head/scalp atraumatic and hearing grossly normal bilaterally Head and scalp: normocephalic and atraumatic Eye Common normals: PERRL, EOMs intact bilaterally, conjunctivae normal and no scleral icterus General eye: normal appearance of both eyes Conjunctiva: conjunctiva(e) normal Pupil: PERRL Chest Common normals: inspection of chest normal Chest: symmetrical chest wall rise Respiratory Common normals: normal respiratory effort and no use of accessory muscles Effort & inspection: able to speak in complete sentences Auscultation: rhonchi (Scattered. Improved) Cardio Common normals: regular rate, regular rhythm, S1 normal heart sound, S2 normal heart sound, no murmurs and peripheral pulses 2+ throughout GI Common normals: Normal to inspection, nondistended, normoactive bowel sounds present, soft to palpation, non-tender and no hepatosplenomegaly Bladder/kidney exam: bladder normal to palpation Extremity Common normals: normal to inspection and no calf tenderness General: no clubbing, no cyanosis and no edema Neuro Common normals: oriented x3, CN's II-XII intact bilaterally, moves all extremities, no focal motor deficits and no sensory deficits noted Sensorium/orientation: awake and alert Psych Common normals: mental status grossly normal Progress Note: Objective Labs Labs: Short CBC 02/14/23 Range/Units 05:23 WBC 6.7 (4.0-11.0) 10^3/uL Hgb 9.0 L (12.0-16.0) g/dL Hct 26.8 L (36.0-48.0) % Plt Count 178 (150-450) 10^3/uL BMP 02/13/23 02/13/23 02/14/23 16:32 22:03 05:23 Sodium 126 L 127 L 130 L Potassium 3.0 L 3.4 L 3.8 Chloride 94 L 96 L 97 L Carbon Dioxide 20.7 L 18.4 L 21.2 BUN 22.0 H 18.0 19.0 H Creatinine 1.90 H 1.77 H 1.98 H Glucose 112 H 95 112 H Calcium 6.1 L 6.8 L 6.8 L Liver Function 02/14/23 Range/Units 05:23 Total Bilirubin 0.8 (0.2-1.0) mg/dL AST 19 (15-37) U/L ALT 11 L (14-59) U/L Alkaline Phosphatase 57 (46-116) U/L Albumin 2.4 L (3.4-5.0) g/dL Progress Note: A&P Assessment and Plan (1) Alcohol withdrawal delirium: Assessment and Plan: ACUTE Resolving High seizure risk from DT's Seizure precautions CIWA scores q4h Continue PRN IVP Valium Consider scheduled librium or adding PRN haldol pending clinical course - not clinically indicated at this time Continue home thiamine, increase home Vit D3 (2) Acute metabolic encephalopathy: Assessment and Plan: ACUTE Suspect hepatic encephalopathy 2/2 EtOH abuse/withdrawal delirium and/or electrolyte disturbances Resolving - see hyperammonemia (3) Acute kidney injury: Assessment and Plan: ACUTE on CHRONIC Improving Further review of more remote medical history from [id number] reveals chronic CKD4 Improving dehdration Daily CMP Consider nephrology consult pending clinical course - not clinically indicated at this time (4) Accidental fall: Assessment and Plan: ACUTE Pt categorically denies falls, but family reports otherwise Acute R nasal fracture noted on CT Face imaging, along with facial abrasions noted supporting report of frequent falls PT/OT consults Plan d/c to local SNF for further strengthening as pt is very deconditioned (5) Fracture of nasal bone: Assessment and Plan: ACUTE Supportive care (6) Generalized weakness: Assessment and Plan: ACUTE Multifactorial Short term SNF stay after discharge likely indicated for strengthening (7) Hyponatremia: Assessment and Plan: ACUTE Improving Likely 2/2 chronic EtOH abuse (beer potomania) and dehydration 130 today Continue IVF at 75/hr to avoid ODS from rapid correction Daily CMP (8) Hypokalemia: Assessment and Plan: ACUTE Resolving 3.8 today At risk for recurrence w/ EtOH abuse hx CMP in AM (9) Hypomagnesemia: Assessment and Plan: ACUTE Resolving 2.0 today At risk for recurrence w/ EtOH abuse hx Tele monitoring (10) Hypocalcemia: Assessment and Plan: ACUTE Improving Corrected calcium 8.1 today Likely 2/2 severely low magnesium levels, EtOH abuse, and poor diet Continue Vit D3 w/ BID dosing Daily CMP Consider calcium gluconate pending clinical course - Not clinically indicated at this time (11) Hyperammonemia: Assessment and Plan: ACUTE Resolved Ammonia < 10 today No known hx of cirrhosis or liver dysfunction, but with significant EtOH abuse hx liver disease would not be surprising Repeat ammonia level in AM (12) Hypoalbuminemia due to protein-calorie malnutrition: Assessment and Plan: ACUTE ON CHRONIC 2/2 to chronic EtOH abuse and poor dietary intake Consider dietary consult pending clinical course once mentation improves (13) Atrial fibrillation: Assessment and Plan: CHRONIC Continue home BB for rate control Not on anticoagulation and pt is a poor candidate d/t EtOH abuse and frequent falls Tele monitoring (14) Hypertension: Assessment and Plan: CHRONIC Continue home BB (15) Hypothyroidism: Assessment and Plan: CHRONIC TSH elevated at 8.46 but we suspect poor compliance to med regimen Check FT4 and T3 - WNL Continue home levothyroxine dose and consider increasing pending clinical course (16) Anxiety and depression: Assessment and Plan: CHRONIC Continue home Vraylar
--- NOTE | 2023-02-14 11:32 | XR_ITS ---
The [address] [address] Patient Name: ORESTES ALVARES MRN: [id number] date: 1965 Sex: F Assigned Patient Location: ICU Current Patient Location: ICU Accession/Order Number: [id number] Exam Date: 02/14/2023 11:25 Report Date: 02/14/2023 11:50 At the request of: SHAIKH KINGS Procedure: XR chest 1V EXAMINATION: XR chest 1V 02/14/2023 8:48 AM PST HISTORY: sob TECHNIQUE: Single frontal view of the chest acquired. COMPARISONS: Chest x-ray 02/13/2023. FINDINGS: Lines/tubes/other: None. Heart and mediastinum: The heart and the mediastinum are within normal limits for technique. Bones: No acute osseous abnormality. Lungs: No evidence of pneumonia or pulmonary edema. Pleura: There is no significant pleural effusion or pneumothorax. Other: None. XR/XR chest 1V IMPRESSION: No acute cardiopulmonary abnormality. Electronically authenticated by: JACQUI PEREIRA Date: 02/14/2023 11:50
--- NOTE | 2023-02-14 12:01 | PT.DAILY ---
Physical Therapy Daily Note PT Daily Note/Assess Start: 02/14/23 11:57 Freq: Status: Active Protocol: Document 02/14/23 11:57 LIZBETWILLA (Rec: 02/14/23 12:01 KAYODE [id number]) Physical Therapy Daily Note/Assessment Time In/Time Out Time In 11:10 Time Out 11:23 Pain In Pain N/A Pain Out Pain N/A Subjective Subjective Pt sitting in BS chair upon arrival. Confused but agreeable to PT. Needs redirected and motivated for participation. Therapeutic Exercise Time Therapeutic Exercise Minutes (minutes) 2 Therapeutic Exercise Units 0 Therapeutic Exercise Treatment Therapeutic Exercise Treatment Attempted seated LE strengthening ex but pt unable to follow directions to complete this task. Therapeutic Activity Time Therapeutic Activity Minutes (minutes) 8 Therapeutic Activity Units 1 Therapeutic Activity Treatment Chair Transfer Ability Minimum Assist Therapeutic Activity Comments Sit>stand from BS chair to RW with Giulia. Pt amb 5' over to bed and sits at EOB. Pt maintains static seated balance at EOB without LOB - 3 min while having conversation . Radiology comes into room needing pt back to BS chair for chest Xray. Pt needs multiple cues to sit>stand to RW but finally does so with Giulia. Pt amb another 5' back to BS chair with increased time for the turn around to sit down. Pt remains in BS chair upon completion with radiology staff present. Total Physical Therapy Time Total Therapy Minutes 10 Total Physical Therapy Units 1 Summary Daily Note Summary Cont to be confused and require lots of cuing for participation. Progressing towards gait and transfer goals - improved tolerance with that today.
--- NOTE | 2023-02-14 12:04 | CM.NOTE ---
Pt now is stating she does not want to go to [facility] for skilled therapy. Talked with pt about transition to home and safety. Pt is oriented to person, , and confused to time and date. Pt does verbalize that she is at the [facility]. Pt starts discussing skilled therapy and how beneficial it would be for her and agrees to going now to [facility]. Pt then has flight of ideas and starts talking about alcohol issues and laughing inappropriately. Pt very difficult to follow with her conversation. Pt is in agreement to speaking with her live in boyfriend (together 20 years) or contacting her children. Spoke with Chris on the telephone, he has concerns with her coming home and safety issues. Family in agreement to skilled care at [facility], discussed again with pt and she is in agreement at this time.
--- NOTE | 2023-02-14 12:25 | CM.NOTE ---
Rounding with Dr. Red. Pt. is laughing inappropriately after responding to questions, and can barely keep eyes open. Dr. Red does not feel the patient is capable of making her own decisions at this time. Vero the senior case manager to speak with daughter to determine a potential discharge plan when medically ready.
--- NOTE | 2023-02-14 12:26 | CM.NOTE ---
[facility] speaking with pt's family and pt regarding skilled therapy. Clinical sent to admissions.
--- NOTE | 2023-02-14 16:32 | DIETREC ---
Recommend 8 oz Ensure Original BID. Each 8 oz bottle provides 250 kcal and 9 gm PRO to supplement pt's meal intakes. Will continue to follow PRN.
[2023-02-14] MEDS: GUAIFENESIN 600 MG TAB.ER.12H PO (17:37)
[2023-02-15] VITALS (89 sets, daily range): BP systolic 113–168; BP diastolic 73–122; PULSE 68–108; RESP 12–38; TEMP 36.3–36.6; O2SAT 70–100; BMI 27.2
[2023-02-15] MEDS: NICOTINE 14 MG PATCH TD (05:13)
[2023-02-15] MEDS: LACTATED RINGER'S SOLUTION 1,000 ML 75 ML IV (05:17)
[2023-02-15] MEDS: GUAIFENESIN 600 MG TAB.ER.12H PO ×2 (05:17→17:20)
[2023-02-15] MEDS: LEVOTHYROXINE SODIUM 100 MCG TABLET PO (05:30)
[2023-02-15 05:44] LABS: Basophils Percent Auto 0.6 % (0.2-2.0); Eosinophils Absolute Auto 0.1 10^3/uL (0.0-0.7); Eosinophils Percent Auto 1.7 % (0.9-7.0); Hemoglobin 8.2 g/dL (12.0-16.0); Immature Granulocytes Abs Auto 0.04 10^3/uL (0.00-0.03); Immature Granulocytes Pct Auto 0.6 % (0.0-0.5); Lymphocytes Absolute Auto 1.5 10^3/uL (1.2-3.8); Lymphocytes Percent Auto 21.6 % (20.5-60.0); Mean Corpuscular HGB Conc 34.5 g/dL (29.9-35.2); Mean Corpuscular Hemoglobin 33.6 pg (26.7-34.0); Mean Corpuscular Volume 97.5 fL (81.0-99.0); Mean Platelet Volume 9.5 fL (9.5-13.5); Monocytes Absolute Auto 1.1 10^3/uL (0.3-0.8); Monocytes Percent Auto 15.3 % (1.7-12.0); Neutrophils Absolute Auto 4.3 10^3/uL (1.4-6.5); Neutrophils Percent Auto 60.2 % (43.0-75.0); Platelet Count 173 10^3/uL (150-450); Red Blood Count 2.44 10^6/uL (4.20-5.40); Red Cell Distribution Width 13.6 % (11.0-15.0); White Blood Count 7.1 10^3/uL (4.0-11.0)
[2023-02-15 06:01] LABS: Albumin Globulin Ratio 0.6; Albumin Level 2.1 g/dL (3.4-5.0); Alkaline Phosphatase 50 U/L (46-116); Anion Gap 11.4; Aspartate Amino Transferase 19 U/L (15-37); BUN Creatinine Ratio 14.9; Bilirubin Total 0.6 mg/dL (0.2-1.0); Calcium 6.9 mg/dL (8.5-10.1); Carbon Dioxide 23.2 mmol/L (21.0-32.0); Chloride 97 mmol/L (98-107); Estimated GFR (African America 38 (>=60); Estimated GFR (Non-African Ame 31 (>=60); Globulin 3.7 g/dL; Glucose 88 mg/dL (74-106); Potassium 3.6 mmol/L (3.5-5.1); Sodium 128 mmol/L (136-145); Total Protein 5.8 g/dL (6.4-8.2)
[2023-02-15 06:02] LABS: Magnesium 1.4 mg/dL (1.8-2.4)
[2023-02-15 06:08] LABS: Alanine Aminotransferase <14 U/L (14-59); Ammonia 33 umol/L (11-32)
[2023-02-15 06:11] LABS: Hematocrit 23.8 % (36.0-48.0)
[2023-02-15] MEDS: 0.9 % SODIUM CHLORIDE 1,000 ML 100 ML IV ×2 (07:54→16:53)
[2023-02-15] MEDS: LACTULOSE 10 GM/15 ML UD CUP 20 GM PO ×3 (09:33→21:32)
[2023-02-15] MEDS: CHOLECALCIFEROL (VITAMIN D3) 125 MCG/5000 UNIT TABLET PO ×2 (09:34→21:32)
[2023-02-15] MEDS: METOPROLOL SUCCINATE 100 MG TAB.ER.24H PO (09:34)
[2023-02-15] MEDS: ENOXAPARIN SODIUM 30 MG/0.3 ML SYRINGE SUBQ (09:34)
[2023-02-15] MEDS: THIAMINE MONONITRATE (VIT B1) 100 MG TABLET PO (09:34)
[2023-02-15] MEDS: MAGNESIUM SULFATE IN WATER 2 GM/50 ML PREMIX IV (09:35)
--- NOTE | 2023-02-15 10:29 | PT.DAILY ---
Physical Therapy Daily Note PT Daily Note/Assess Start: 02/14/23 11:57 Freq: Status: Active Protocol: Document 02/15/23 10:26 KAYODE (Rec: 02/15/23 10:29 ROMELIAWILLA [id number]) Physical Therapy Daily Note/Assessment Time In/Time Out Time In 10:00 Time Out 10:12 Pain In Pain N/A Pain Out Pain N/A Subjective Subjective Pt sitting in BS chair upon arrival. Agrees to PT. less confused today. Daughter present. Therapeutic Exercise Time Therapeutic Exercise Minutes (minutes) 3 Therapeutic Exercise Units 0 Therapeutic Exercise Treatment Therapeutic Exercise Treatment Pt performs bilat LE strengthening ex in BS chair 10x ea prior to gait/transfers . Therapeutic Activity Time Therapeutic Activity Minutes (minutes) 8 Therapeutic Activity Units 1 Therapeutic Activity Treatment Chair Transfer Ability Contact Guard Assist Therapeutic Activity Comments Pt performs sit>stand transfer from BS chair to RW CGA on this date. Pt amb 70' with RW, CGA with assist for IV pole. Pt needs cues to slow down on turns and which way to turn to avoid IV lines getting caught . Pt returned to BS chair with call light in reach, chair alarm set and daughter present . Total Physical Therapy Time Total Therapy Minutes 11 Total Physical Therapy Units 1 Summary Daily Note Summary Improved gait ability and endurance today. Less confused but impulsive today.
[2023-02-15] MEDS: PANTOPRAZOLE SODIUM 40 MG VIAL IV (11:49)
--- NOTE | 2023-02-15 11:52 | P.PN_ITS ---
Patient seen and examined. Chart reviewed, her clinical care/decision making d/w DALLAS Mallory in detail. Agree with her findings and treatment plan Exam: Sitting up in chair, comfortable CTA b/l , no wheezing noted AAOX 3, mental status is improved but still slightly confused, and takes time to comprehend and respond appropriately. Assessment and Plan Improving and doing well. C/w IVF. Restart lactulose for elevated ammonia. Not at baseline still and will need continued monitoring and treatment as outlined in detail in abstracter progress note. Progress Note: Subjective Subjective Interval history: Date/time of exam: 02/15/23929 The patient is sitting up in a bedside chair eating breakfast at the time of my exam. She is awake, alert, and oriented today despite recurrent hyperammonemia. Her electrolytes w/ refractory derangements but less severe than on admission. Disposition: Discharge likely in the next 24 to 48 hours pending clinical course. We are attempting to place the patient in a SNF for rehab strengthening as she is significantly deconditioned. Exam Constitutional Vital Signs, click to edit/add: Last Vital Signs Temp 97.3 F L 02/15/23 07:00 Pulse 82 02/15/23 10:01 Resp 16 02/15/23 07:00 BP 152/108 H 02/15/23 07:00 Pulse Ox 99 02/15/23 07:00 O2 Del Method Room Air 02/15/23 07:00 Common normals: no apparent distress, oriented x3, alert and well nourished Orientation/consciousness: Yes awake HENNJ Common normals: normocephalic, hearing grossly normal bilaterally, external ears normal and moist oral mucous membranes Head and scalp: atraumatic and abrasion (R upper lip, scattered BUE, BLE) Face and sinus: facial tenderness (paranasal) on the right External ear: external ears normal Eye Common normals: PERRL, EOMs intact bilaterally, conjunctivae normal and no scleral icterus General eye: normal appearance of both eyes Chest Common normals: inspection of chest normal Chest: symmetrical chest wall rise Respiratory Common normals: normal respiratory effort, no retractions and no use of accessory muscles Effort & inspection: able to speak in complete sentences Auscultation: rhonchi (bilateral rhonchi, clears w/ cough) Cardio Common normals: no JVD, regular rate, S1 normal heart sound, S2 normal heart sound, no gallops, no clicks, no murmurs, no rub and peripheral pulses 2+ throughout Rhythm: abnormal rhythm irregularly irregular GI Common normals: Normal to inspection, nondistended, normoactive bowel sounds present, soft to palpation, non-tender, no hepatosplenomegaly, no masses and no bruits Bladder/kidney exam: bladder normal to palpation Extremity Common normals: normal to inspection, normal capillary refill, no calf tenderness and no pedal edema General: no clubbing and no cyanosis Neuro Maisha Coma Scale: GCS not evaluated Common normals: CN's II-XII intact bilaterally, moves all extremities, no focal motor deficits and no sensory deficits noted Other: Chvostek's Sign - equivocally positive on the right, negative on the left. Inconclusive. Psych Common normals: mental status grossly normal, affect normal and activity/motor behavior normal Progress Note: Objective Labs Labs: Short CBC 02/15/23 Range/Units 05:24 WBC 7.1 (4.0-11.0) 10^3/uL Hgb 8.2 L (12.0-16.0) g/dL Hct 23.8 L* (36.0-48.0) % Plt Count 173 (150-450) 10^3/uL BMP 02/15/23 05:24 Sodium 128 L Potassium 3.6 Chloride 97 L Carbon Dioxide 23.2 BUN 25.0 H Creatinine 1.68 H Glucose 88 Calcium 6.9 L Liver Function 02/15/23 Range/Units 05:24 Total Bilirubin 0.6 (0.2-1.0) mg/dL AST 19 (15-37) U/L ALT <14 L (14-59) U/L Alkaline Phosphatase 50 (46-116) U/L Albumin 2.1 L (3.4-5.0) g/dL Progress Note: A&P Assessment and Plan (1) Alcohol withdrawal delirium: Assessment and Plan: ACUTE * Resolving - suspect at the end of acute withdrawal today * High seizure risk from DT's * Seizure precautions * CIWA scores q4h * Continue PRN IVP Valium * Continue home thiamine, and increased home Vit D3 to BID (2) Acute metabolic encephalopathy: Assessment and Plan: ACUTE * Suspect hepatic encephalopathy 2/2 EtOH abuse and/or withdrawal delirium and/or electrolyte disturbances * Resolving - see hyperammonemia (3) Acute kidney injury: Assessment and Plan: ACUTE on CHRONIC * Resolving * Further review of more remote medical history from [id number] reveals chronic CKD4 * CKD near baseline * Worsening dehydration overnight after IVF rate adjusted down. Increase back to 100 ml/hr * Daily CMP (4) Accidental fall: Assessment and Plan: ACUTE * Pt categorically denies falls, but family reports otherwise * Acute R nasal fracture noted on CT Face imaging, along with facial abrasions noted supporting report of frequent falls * PT/OT consults * Plan d/c to local SNF for further strengthening as pt is very deconditioned (5) Fracture of nasal bone: Assessment and Plan: ACUTE * Supportive care (6) Generalized weakness: Assessment and Plan: ACUTE * Multifactorial including EtOH abuse, electrolyte disturbances, generalized deconditioning, acute illness and hospitalization * Short term SNF stay after discharge likely indicated for strengthening (7) Hyponatremia: Assessment and Plan: ACUTE Laboratory Tests 02/15/23 05:24 Sodium 128 L * Worsened today after IVF rate reduced yesterday * Likely 2/2 chronic EtOH abuse (beer potomania) and dehydration * Increase IVF to 100 ml/hr * Daily CMP (8) Hypokalemia: Assessment and Plan: ACUTE * Resolving * 3.6 today * At risk for recurrence w/ EtOH abuse hx and refractory hypomagnesemia * CMP in AM (9) Hypomagnesemia: Assessment and Plan: ACUTE Laboratory Tests 02/15/23 05:24 Magnesium 1.4 L * Refractory at 1.4 today * Mag sulfate 2gm IVPB x 1 * At risk for recurrence w/ EtOH abuse hx * Tele monitoring * Repeat Mag level in AM (10) Hypocalcemia: Assessment and Plan: ACUTE * Improving * Corrected calcium 8.3 today * Likely 2/2 severely low magnesium levels, EtOH abuse, and poor diet * Continue Vit D3 w/ BID dosing * Daily CMP * Consider calcium gluconate pending clinical course - Not clinically indicated at this time (11) Hyperammonemia: Assessment and Plan: ACUTE Laboratory Tests 02/15/23 05:24 Ammonia 33 H * Refractory to 33 today but w/o significant confusion noted * Restart Lactulose 20 gm TID * Pt will likely need to be on this medication fdc * Repeat ammonia level in AM (12) Hypoalbuminemia due to protein-calorie malnutrition: Assessment and Plan: ACUTE ON CHRONIC * 2/2 to chronic EtOH abuse and poor dietary intake * Add Ensure bid per managing supervisor recommendation (13) Atrial fibrillation: Assessment and Plan: CHRONIC * Continue home BB for rate control * Not on anticoagulation and pt is a poor candidate d/t EtOH abuse and frequent falls * Tele monitoring (14) Hypertension: Assessment and Plan: CHRONIC * Continue home BB (15) Hypothyroidism: Assessment and Plan: CHRONIC * TSH elevated at 8.46 but we suspect poor compliance to med regimen * Check FT4 and T3 - WNL * Continue home levothyroxine dose and consider increasing pending clinical course * Likely defer to outpatient management after discharge (16) Anxiety and depression: Assessment and Plan: CHRONIC * Continue home Adelaidaaylar
--- NOTE | 2023-02-15 11:52 | PM.PN ---
Progress Note: Subjective Subjective Interval history: Date/time of exam: 02/15/23 0930 The patient is sitting up in a bedside chair eating breakfast at the time of my exam. She is awake, alert, and oriented today despite recurrent hyperammonemia. Her electrolytes w/ refractory derangements but less severe than on admission. Disposition: Discharge likely in the next 24 to 48 hours pending clinical course. We are attempting to place the patient in a SNF for rehab strengthening as she is significantly deconditioned. Exam Constitutional Vital Signs, click to edit/add: Last Vital Signs Temp 97.3 F L 02/15/23 07:00 Pulse 82 02/15/23 10:01 Resp 16 02/15/23 07:00 BP 152/108 H 02/15/23 07:00 Pulse Ox 99 02/15/23 07:00 O2 Del Method Room Air 02/15/23 07:00 Common normals: no apparent distress, oriented x3, alert and well nourished Orientation/consciousness: Yes awake HENMT Common normals: normocephalic, hearing grossly normal bilaterally, external ears normal and moist oral mucous membranes Head and scalp: atraumatic and abrasion (R upper lip, scattered BUE, BLE) Face and sinus: facial tenderness (paranasal) on the right External ear: external ears normal Eye Common normals: PERRL, EOMs intact bilaterally, conjunctivae normal and no scleral icterus General eye: normal appearance of both eyes Chest Common normals: inspection of chest normal Chest: symmetrical chest wall rise Respiratory Common normals: normal respiratory effort, no retractions and no use of accessory muscles Effort & inspection: able to speak in complete sentences Auscultation: rhonchi (bilateral rhonchi, clears w/ cough) Cardio Common normals: no JVD, regular rate, S1 normal heart sound, S2 normal heart sound, no gallops, no clicks, no murmurs, no rub and peripheral pulses 2+ throughout Rhythm: abnormal rhythm irregularly irregular GI Common normals: Normal to inspection, nondistended, normoactive bowel sounds present, soft to palpation, non-tender, no hepatosplenomegaly, no masses and no bruits Bladder/kidney exam: bladder normal to palpation Extremity Common normals: normal to inspection, normal capillary refill, no calf tenderness and no pedal edema General: no clubbing and no cyanosis Neuro Maisha Coma Scale: GCS not evaluated Common normals: CN's II-XII intact bilaterally, moves all extremities, no focal motor deficits and no sensory deficits noted Other: Chvostek's Sign - equivocally positive on the right, negative on the left. Inconclusive. Psych Common normals: mental status grossly normal, affect normal and activity/motor behavior normal Progress Note: Objective Labs Labs: Short CBC 02/15/23 Range/Units 05:24 WBC 7.1 (4.0-11.0) 10^3/uL Hgb 8.2 L (12.0-16.0) g/dL Hct 23.8 L* (36.0-48.0) % Plt Count 173 (150-450) 10^3/uL BMP 02/15/23 05:24 Sodium 128 L Potassium 3.6 Chloride 97 L Carbon Dioxide 23.2 BUN 25.0 H Creatinine 1.68 H Glucose 88 Calcium 6.9 L Liver Function 02/15/23 Range/Units 05:24 Total Bilirubin 0.6 (0.2-1.0) mg/dL AST 19 (15-37) U/L ALT <14 L (14-59) U/L Alkaline Phosphatase 50 (46-116) U/L Albumin 2.1 L (3.4-5.0) g/dL Progress Note: A&P Assessment and Plan (1) Alcohol withdrawal delirium: Assessment and Plan: ACUTE Resolving - suspect at the end of acute withdrawal today High seizure risk from DT's Seizure precautions CIWA scores q4h Continue PRN IVP Valium Continue home thiamine, and increased home Vit D3 to BID (2) Acute metabolic encephalopathy: Assessment and Plan: ACUTE Suspect hepatic encephalopathy 2/2 EtOH abuse and/or withdrawal delirium and/or electrolyte disturbances Resolving - see hyperammonemia (3) Acute kidney injury: Assessment and Plan: ACUTE on CHRONIC Resolving Further review of more remote medical history from [id number] reveals chronic CKD4 CKD near baseline Worsening dehydration overnight after IVF rate adjusted down. Increase back to 100 ml/hr Daily CMP (4) Accidental fall: Assessment and Plan: ACUTE Pt categorically denies falls, but family reports otherwise Acute R nasal fracture noted on CT Face imaging, along with facial abrasions noted supporting report of frequent falls PT/OT consults Plan d/c to local SNF for further strengthening as pt is very deconditioned (5) Fracture of nasal bone: Assessment and Plan: ACUTE Supportive care (6) Generalized weakness: Assessment and Plan: ACUTE Multifactorial including EtOH abuse, electrolyte disturbances, generalized deconditioning, acute illness and hospitalization Short term SNF stay after discharge likely indicated for strengthening (7) Hyponatremia: Assessment and Plan: ACUTE Laboratory Tests 02/15/23 05:24 Sodium 128 L Worsened today after IVF rate reduced yesterday Likely 2/2 chronic EtOH abuse (beer potomania) and dehydration Increase IVF to 100 ml/hr Daily CMP (8) Hypokalemia: Assessment and Plan: ACUTE Resolving 3.6 today At risk for recurrence w/ EtOH abuse hx and refractory hypomagnesemia CMP in AM (9) Hypomagnesemia: Assessment and Plan: ACUTE Laboratory Tests 02/15/23 05:24 Magnesium 1.4 L Refractory at 1.4 today Mag sulfate 2gm IVPB x 1 At risk for recurrence w/ EtOH abuse hx Tele monitoring Repeat Mag level in AM (10) Hypocalcemia: Assessment and Plan: ACUTE Improving Corrected calcium 8.3 today Likely 2/2 severely low magnesium levels, EtOH abuse, and poor diet Continue Vit D3 w/ BID dosing Daily CMP Consider calcium gluconate pending clinical course - Not clinically indicated at this time (11) Hyperammonemia: Assessment and Plan: ACUTE Laboratory Tests 02/15/23 05:24 Ammonia 33 H Refractory to 33 today but w/o significant confusion noted Restart Lactulose 20 gm TID Pt will likely need to be on this medication m[facility]p Repeat ammonia level in AM (12) Hypoalbuminemia due to protein-calorie malnutrition: Assessment and Plan: ACUTE ON CHRONIC 2/2 to chronic EtOH abuse and poor dietary intake Add Ensure bid per public defender recommendation (13) Atrial fibrillation: Assessment and Plan: CHRONIC Continue home BB for rate control Not on anticoagulation and pt is a poor candidate d/t EtOH abuse and frequent falls Tele monitoring (14) Hypertension: Assessment and Plan: CHRONIC Continue home BB (15) Hypothyroidism: Assessment and Plan: CHRONIC TSH elevated at 8.46 but we suspect poor compliance to med regimen Check FT4 and T3 - WNL Continue home levothyroxine dose and consider increasing pending clinical course Likely defer to outpatient management after discharge (16) Anxiety and depression: Assessment and Plan: CHRONIC Continue home Vraylar
[2023-02-15] MEDS: LACTOSE -REDUCED (ENSURE ORIGINAL 237 ML LIQUID) PO (14:07)
--- NOTE | 2023-02-15 14:10 | CM.NOTE ---
Updates sent to [place].
--- NOTE | 2023-02-15 14:10 | CM.NOTE ---
Monica Warren continues to contact [facility] to see if they are able to accept pt.
--- NOTE | 2023-02-15 15:06 | CM.NOTE ---
Spoke with pt again today regarding skilled therapy. Pt is oriented to name, and where she is at. Pt voices that she does not want to go skilled at discharge. Pt voices I just want to go back home. I am doing much better today and walking much better. Pt is not discharged medically at this time, case Management with discuss with physician in AM.
--- NOTE | 2023-02-15 15:30 | CM.NOTE ---
Monica Warren called and they are in network with [facility] and started precert.
[2023-02-16] VITALS (40 sets, daily range): BP systolic 146–203; BP diastolic 78–113; PULSE 81–107; RESP 10–26; TEMP 36.3–36.6; O2SAT 79–99
[2023-02-16] MEDS: HYDRALAZINE HCL 20 MG/ML VIAL 10 MG IVP ×3 (00:04→21:25)
[2023-02-16] MEDS: 0.9 % SODIUM CHLORIDE 1,000 ML 100 ML IV ×3 (02:49→17:13)
[2023-02-16] MEDS: GUAIFENESIN 600 MG TAB.ER.12H PO ×2 (05:42→17:58)
[2023-02-16] MEDS: NICOTINE 14 MG PATCH TD (05:42)
[2023-02-16] MEDS: LEVOTHYROXINE SODIUM 100 MCG TABLET PO (05:42)
[2023-02-16] MEDS: LACTULOSE 10 GM/15 ML UD CUP 20 GM PO ×3 (05:43→21:13)
[2023-02-16 05:52] LABS: Basophils Absolute Auto 0.1 10^3/uL (0.0-0.1); Basophils Percent Auto 0.7 % (0.2-2.0); Eosinophils Absolute Auto 0.1 10^3/uL (0.0-0.7); Hematocrit 26.9 % (36.0-48.0); Hemoglobin 8.5 g/dL (12.0-16.0); Immature Granulocytes Abs Auto 0.05 10^3/uL (0.00-0.03); Immature Granulocytes Pct Auto 0.6 % (0.0-0.5); Lymphocytes Absolute Auto 1.1 10^3/uL (1.2-3.8); Lymphocytes Percent Auto 12.8 % (20.5-60.0); Mean Corpuscular HGB Conc 31.6 g/dL (29.9-35.2); Mean Corpuscular Hemoglobin 33.3 pg (26.7-34.0); Mean Corpuscular Volume 105.5 fL (81.0-99.0); Mean Platelet Volume 9.4 fL (9.5-13.5); Monocytes Absolute Auto 1.1 10^3/uL (0.3-0.8); Monocytes Percent Auto 13.3 % (1.7-12.0); Neutrophils Absolute Auto 5.9 10^3/uL (1.4-6.5); Neutrophils Percent Auto 71.6 % (43.0-75.0); Platelet Count 196 10^3/uL (150-450); Red Blood Count 2.55 10^6/uL (4.20-5.40); Red Cell Distribution Width 14.5 % (11.0-15.0); White Blood Count 8.3 10^3/uL (4.0-11.0)
[2023-02-16 06:17] LABS: Alanine Aminotransferase 10 U/L (14-59); Albumin Globulin Ratio 0.6; Albumin Level 2.2 g/dL (3.4-5.0); Alkaline Phosphatase 53 U/L (46-116); Anion Gap 13.2; Aspartate Amino Transferase 19 U/L (15-37); BUN Creatinine Ratio 12.5; Bilirubin Total 0.4 mg/dL (0.2-1.0); Calcium 7.6 mg/dL (8.5-10.1); Carbon Dioxide 18.8 mmol/L (21.0-32.0); Chloride 101 mmol/L (98-107); Estimated GFR (African America 40 (>=60); Estimated GFR (Non-African Ame 33 (>=60); Glucose 98 mg/dL (74-106); Sodium 129 mmol/L (136-145); Total Protein 6.2 g/dL (6.4-8.2)
[2023-02-16 06:21] LABS: Ammonia 32 umol/L (11-32); Magnesium 1.6 mg/dL (1.8-2.4); Phosphorus 3.1 mg/dL (2.6-4.7)
[2023-02-16] MEDS: CHOLECALCIFEROL (VITAMIN D3) 125 MCG/5000 UNIT TABLET PO ×2 (08:23→21:13)
[2023-02-16] MEDS: THIAMINE MONONITRATE (VIT B1) 100 MG TABLET PO (08:23)
[2023-02-16] MEDS: ENOXAPARIN SODIUM 30 MG/0.3 ML SYRINGE SUBQ (08:23)
[2023-02-16] MEDS: METOPROLOL SUCCINATE 100 MG TAB.ER.24H PO (08:23)
[2023-02-16] MEDS: LACTOSE -REDUCED (ENSURE ORIGINAL 237 ML LIQUID) PO ×2 (08:23→21:13)
[2023-02-16] MEDS: ACETAMINOPHEN 325 MG TABLET 650 MG PO ×2 (08:29→21:12)
[2023-02-16] MEDS: MAGNESIUM SULFATE IN WATER 4 GM/100 ML PIGGYBACK IV (11:02)
[2023-02-16] MEDS: PANTOPRAZOLE SODIUM 40 MG VIAL IV (11:03)
--- NOTE | 2023-02-16 11:37 | PT.DAILY ---
Physical Therapy Daily Note PT Daily Note/Assess Start: 02/14/23 11:57 Freq: Status: Active Protocol: Document 02/16/23 11:28 KAYODE (Rec: 02/16/23 11:36 KAYODE [id number]) Physical Therapy Daily Note/Assessment Time In/Time Out Time In 10:25 Time Out 10:38 Pain In Pain N/A Pain Out Pain N/A Subjective Subjective Pt supine upon arrival. Agrees to PT. Denies pain. Did not sleep well. Therapeutic Exercise Time Therapeutic Exercise Minutes (minutes) 3 Therapeutic Exercise Units 0 Therapeutic Exercise Treatment Therapeutic Exercise Treatment Pt performs bilat LE strengthening ex 10x ea while sitting in BS chair. Therapeutic Activity Time Therapeutic Activity Minutes (minutes) 8 Therapeutic Activity Units 1 Therapeutic Activity Treatment Bed Mobility Ability Minimum Assist Chair Transfer Ability Standby Assistance Therapeutic Activity Comments Pt performs supine>sit with Giulia to advance upper body to sit EOB. Pt sits EOB unsupported without LOB 1 min. Pt sit>stand SBA to RW and amb 120' with SBA and assist for IV pole. Pt returned to room to BS chair. Completes seated LE ex. remains in BS chair with call light in reach and needs met. Total Physical Therapy Time Total Therapy Minutes 11 Total Physical Therapy Units 1 Summary Daily Note Summary Significant improvement with gait endurance today. More steady on turns compared to previous session.
--- NOTE | 2023-02-16 14:12 | CM.NOTE ---
Updated PT and OT notes sent to [place].
--- NOTE | 2023-02-16 15:51 | P.PN_ITS ---
Seen and examined. Chart reviewed. Case d/w [place]. Agree with her findings and treatment plan Exam Sitting on a recliner, comfortable Normal RR, Coarse breath sounds. no wheezing AAOX 3, non focal. Not confused anymore. Assessment and plan: Hepatic encephalopathy DASHAWN Hyponatremia Doing well. More or less at baseline. Monitor electrolytes. Possible d/c once precert for rehab goes through. Progress Note: Subjective Subjective Interval history: Date/time of exam: 02/16/23 1015 The patient is resting in bed sleeping upon my entry to her room. She arouses easily to voice and is A&O x 3. She was expressing reluctance to go to a local SNF for rehab yesterday evening, but I strongly encouraged her to complete a rehab stay for further strengthening. She verbalizes understanding and agrees. Her ammonia level is trending down again today and is WNL. We will continue lactulose dosing as she will likely require this for the rest of her life d/t hepatic encephalopathy. The pt has been informed of this likelihood. She was again strongly encouraged to pursue complete EtOH cessation. Her magnesium level dropped again today and we will replete w/ Mag Sulfate rider. Disposition: discharge likely in the next 24-48 hrs. Exam Constitutional Vital Signs, click to edit/add: Last Vital Signs Temp 98 F 02/16/23 00:00 Pulse 90 02/16/23 13:00 Resp 18 02/16/23 12:00 BP 203/110 H 02/16/23 08:29 Pulse Ox 99 02/16/23 03:19 O2 Del Method Room Air 02/15/23 20:42 Common normals: no apparent distress, oriented x3, alert and well nourished Orientation/consciousness: Yes awake [facility] Common normals: normocephalic, hearing grossly normal bilaterally, external ears normal and moist oral mucous membranes Head and scalp: atraumatic and abrasion (R upper lip, scattered BUE, BLE) Face and sinus: facial tenderness (paranasal) on the right External ear: external ears normal Eye Common normals: PERRL, EOMs intact bilaterally, conjunctivae normal and no scleral icterus General eye: normal appearance of both eyes Chest Common normals: inspection of chest normal Chest: symmetrical chest wall rise Respiratory Common normals: normal respiratory effort, no retractions and no use of accessory muscles Effort & inspection: able to speak in complete sentences Auscultation: rhonchi (faint bilateral rhonchi, clears w/ cough) Cardio Common normals: no JVD, regular rate, S1 normal heart sound, S2 normal heart sound, no gallops, no clicks, no murmurs, no rub and peripheral pulses 2+ throughout Rhythm: abnormal rhythm irregularly irregular GI Common normals: Normal to inspection, nondistended, normoactive bowel sounds present, soft to palpation, non-tender, no hepatosplenomegaly, no masses and no bruits Bladder/kidney exam: bladder normal to palpation Extremity Common normals: normal to inspection, normal capillary refill, no calf tenderness and no pedal edema General: no clubbing and no cyanosis Neuro Zeigler Coma Scale: GCS not evaluated Common normals: CN's II-XII intact bilaterally, moves all extremities, no focal motor deficits and no sensory deficits noted Other: Chvostek's Sign - equivocally positive on the right, negative on the left. Inconclusive. Psych Common normals: mental status grossly normal, affect normal and activity/motor behavior normal Progress Note: Objective Labs Labs: Short CBC 02/16/23 Range/Units 05:33 WBC 8.3 (4.0-11.0) 10^3/uL Hgb 8.5 L (12.0-16.0) g/dL Hct 26.9 L (36.0-48.0) % Plt Count 196 (150-450) 10^3/uL BMP 02/16/23 05:33 Sodium 129 L Potassium 4.0 Chloride 101 Carbon Dioxide 18.8 L BUN 20.0 H Creatinine 1.60 H Glucose 98 Calcium 7.6 L Liver Function 02/16/23 Range/Units 05:33 Total Bilirubin 0.4 (0.2-1.0) mg/dL AST 19 (15-37) U/L ALT 10 L (14-59) U/L Alkaline Phosphatase 53 (46-116) U/L Albumin 2.2 L (3.4-5.0) g/dL Progress Note: A&P Assessment and Plan (1) Alcohol withdrawal delirium: Assessment and Plan: ACUTE * Resolved * Continue home thiamine, and increased home Vit D3 to BID (2) Acute metabolic encephalopathy: Assessment and Plan: ACUTE * Suspect hepatic encephalopathy 2/2 EtOH abuse and/or withdrawal delirium and/or electrolyte disturbances * Resolving - see hyperammonemia (3) Acute kidney injury: Assessment and Plan: ACUTE on CHRONIC * Resolving * Further review of more remote medical history from [id number] reveals chronic CKD4 * CKD at baseline * Continue IVF at 100 ml/hr * Daily CMP (4) Accidental fall: Assessment and Plan: ACUTE * Pt categorically denies falls, but family reports otherwise * Acute R nasal fracture noted on CT Face imaging, along with facial abrasions noted supporting report of frequent falls * PT/OT consults * Plan d/c to local SNF for further strengthening as pt is very deconditioned (5) Fracture of nasal bone: Assessment and Plan: ACUTE * Supportive care (6) Generalized weakness: Assessment and Plan: ACUTE * Multifactorial including EtOH abuse, electrolyte disturbances, generalized dec onditioning, acute illness and hospitalization * Short term SNF stay after discharge indicated for strengthening (7) Hyponatremia: Assessment and Plan: ACUTE * Slightly improved * Likely 2/2 chronic EtOH abuse (beer potomania) and dehydration * Continue IVF at 100 ml/hr * Daily CMP (8) Hypokalemia: Assessment and Plan: ACUTE * Resolved * 4.0 today * At risk for recurrence w/ EtOH abuse hx and refractory hypomagnesemia * CMP in AM (9) Hypomagnesemia: Assessment and Plan: ACUTE Laboratory Tests 02/15/23 05:24 Magnesium 1.4 L * Refractory at 1.6 today * Mag sulfate 4gm IVPB x 1 * At risk for recurrence w/ EtOH abuse hx * Tele monitoring * Repeat Mag level in AM (10) Hypocalcemia: Assessment and Plan: ACUTE * Improving * Corrected calcium 8.7 today * Likely 2/2 severely low magnesium levels, EtOH abuse, and poor diet * Continue Vit D3 w/ BID dosing * Pt diet is improving since admission * Daily CMP (11) Hyperammonemia: Assessment and Plan: ACUTE * Improved slightly to 32 today - WNL * Continue Lactulose 20 gm TID * 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, 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 * Repeat ammonia level in AM (12) Hypoalbuminemia due to protein-calorie malnutrition: Assessment and Plan: ACUTE ON CHRONIC * 2/2 to chronic EtOH abuse and poor dietary intake * Add Ensure bid per ornamental ironworker recommendation (13) Atrial fibrillation: Assessment and Plan: CHRONIC * Continue home BB for rate control * Not on anticoagulation and pt is a poor candidate d/t EtOH abuse and frequent falls * Tele monitoring (14) Hypertension: Assessment and Plan: CHRONIC * Continue home BB (15) Hypothyroidism: Assessment and Plan: CHRONIC * TSH elevated at 8.46 but we suspect poor compliance to med regimen * Check FT4 and T3 - WNL * Continue home levothyroxine dose and consider increasing pending clinical course * Likely defer to outpatient management after discharge and repeat TSH level (16) Anxiety and depression: Assessment and Plan: CHRONIC * Continue home Amadou
--- NOTE | 2023-02-16 15:51 | PM.PN ---
Progress Note: Subjective Subjective Interval history: Date/time of exam: 02/16/23 1015 The patient is resting in bed sleeping upon my entry to her room. She arouses easily to voice and is A&O x 3. She was expressing reluctance to go to a local SNF for rehab yesterday evening, but I strongly encouraged her to complete a rehab stay for further strengthening. She verbalizes understanding and agrees. Her ammonia level is trending down again today and is WNL. We will continue lactulose dosing as she will likely require this for the rest of her life d/t hepatic encephalopathy. The pt has been informed of this likelihood. She was again strongly encouraged to pursue complete EtOH cessation. Her magnesium level dropped again today and we will replete w/ Mag Sulfate rider. Disposition: discharge likely in the next 24-48 hrs. Exam Constitutional Vital Signs, click to edit/add: Last Vital Signs Temp 98 F 02/16/23 00:00 Pulse 90 02/16/23 13:00 Resp 18 02/16/23 12:00 BP 203/110 H 02/16/23 08:29 Pulse Ox 99 02/16/23 03:19 O2 Del Method Room Air 02/15/23 20:42 Common normals: no apparent distress, oriented x3, alert and well nourished Orientation/consciousness: Yes awake HENVA Common normals: normocephalic, hearing grossly normal bilaterally, external ears normal and moist oral mucous membranes Head and scalp: atraumatic and abrasion (R upper lip, scattered BUE, BLE) Face and sinus: facial tenderness (paranasal) on the right External ear: external ears normal Eye Common normals: PERRL, EOMs intact bilaterally, conjunctivae normal and no scleral icterus General eye: normal appearance of both eyes Chest Common normals: inspection of chest normal Chest: symmetrical chest wall rise Respiratory Common normals: normal respiratory effort, no retractions and no use of accessory muscles Effort & inspection: able to speak in complete sentences Auscultation: rhonchi (faint bilateral rhonchi, clears w/ cough) Cardio Common normals: no JVD, regular rate, S1 normal heart sound, S2 normal heart sound, no gallops, no clicks, no murmurs, no rub and peripheral pulses 2+ throughout Rhythm: abnormal rhythm irregularly irregular GI Common normals: Normal to inspection, nondistended, normoactive bowel sounds present, soft to palpation, non-tender, no hepatosplenomegaly, no masses and no bruits Bladder/kidney exam: bladder normal to palpation Extremity Common normals: normal to inspection, normal capillary refill, no calf tenderness and no pedal edema General: no clubbing and no cyanosis Neuro [place] Coma Scale: GCS not evaluated Common normals: CN's II-XII intact bilaterally, moves all extremities, no focal motor deficits and no sensory deficits noted Other: Chvostek's Sign - equivocally positive on the right, negative on the left. Inconclusive. Psych Common normals: mental status grossly normal, affect normal and activity/motor behavior normal Progress Note: Objective Labs Labs: Short CBC 02/16/23 Range/Units 05:33 WBC 8.3 (4.0-11.0) 10^3/uL Hgb 8.5 L (12.0-16.0) g/dL Hct 26.9 L (36.0-48.0) % Plt Count 196 (150-450) 10^3/uL BMP 02/16/23 05:33 Sodium 129 L Potassium 4.0 Chloride 101 Carbon Dioxide 18.8 L BUN 20.0 H Creatinine 1.60 H Glucose 98 Calcium 7.6 L Liver Function 02/16/23 Range/Units 05:33 Total Bilirubin 0.4 (0.2-1.0) mg/dL AST 19 (15-37) U/L ALT 10 L (14-59) U/L Alkaline Phosphatase 53 (46-116) U/L Albumin 2.2 L (3.4-5.0) g/dL Progress Note: A&P Assessment and Plan (1) Alcohol withdrawal delirium: Assessment and Plan: ACUTE Resolved Continue home thiamine, and increased home Vit D3 to BID (2) Acute metabolic encephalopathy: Assessment and Plan: ACUTE Suspect hepatic encephalopathy 2/2 EtOH abuse and/or withdrawal delirium and/or electrolyte disturbances Resolving - see hyperammonemia (3) Acute kidney injury: Assessment and Plan: ACUTE on CHRONIC Resolving Further review of more remote medical history from [id number] reveals chronic CKD4 CKD at baseline Continue IVF at 100 ml/hr Daily CMP (4) Accidental fall: Assessment and Plan: ACUTE Pt categorically denies falls, but family reports otherwise Acute R nasal fracture noted on CT Face imaging, along with facial abrasions noted supporting report of frequent falls PT/OT consults Plan d/c to local SNF for further strengthening as pt is very deconditioned (5) Fracture of nasal bone: Assessment and Plan: ACUTE Supportive care (6) Generalized weakness: Assessment and Plan: ACUTE Multifactorial including EtOH abuse, electrolyte disturbances, generalized deconditioning, acute illness and hospitalization Short term SNF stay after discharge indicated for strengthening (7) Hyponatremia: Assessment and Plan: ACUTE Slightly improved Likely 2/2 chronic EtOH abuse (beer potomania) and dehydration Continue IVF at 100 ml/hr Daily CMP (8) Hypokalemia: Assessment and Plan: ACUTE Resolved 4.0 today At risk for recurrence w/ EtOH abuse hx and refractory hypomagnesemia CMP in AM (9) Hypomagnesemia: Assessment and Plan: ACUTE Laboratory Tests 02/15/23 05:24 Magnesium 1.4 L Refractory at 1.6 today Mag sulfate 4gm IVPB x 1 At risk for recurrence w/ EtOH abuse hx Tele monitoring Repeat Mag level in AM (10) Hypocalcemia: Assessment and Plan: ACUTE Improving Corrected calcium 8.7 today Likely 2/2 severely low magnesium levels, EtOH abuse, and poor diet Continue Vit D3 w/ BID dosing Pt diet is improving since admission Daily CMP (11) Hyperammonemia: Assessment and Plan: ACUTE Improved slightly to 32 today - WNL Continue Lactulose 20 gm TID Pt will likely need to be on this medication mcc, 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 Repeat ammonia level in AM (12) Hypoalbuminemia due to protein-calorie malnutrition: Assessment and Plan: ACUTE ON CHRONIC 2/2 to chronic EtOH abuse and poor dietary intake Add Ensure bid per portuguese tutor recommendation (13) Atrial fibrillation: Assessment and Plan: CHRONIC Continue home BB for rate control Not on anticoagulation and pt is a poor candidate d/t EtOH abuse and frequent falls Tele monitoring (14) Hypertension: Assessment and Plan: CHRONIC Continue home BB (15) Hypothyroidism: Assessment and Plan: CHRONIC TSH elevated at 8.46 but we suspect poor compliance to med regimen Check FT4 and T3 - WNL Continue home levothyroxine dose and consider increasing pending clinical course Likely defer to outpatient management after discharge and repeat TSH level (16) Anxiety and depression: Assessment and Plan: CHRONIC Continue home Vraylar
[2023-02-16] MEDS: IPRATROPIUM/ALBUTEROL SULFATE 3 ML AMPUL.NEB IH (20:37)
[2023-02-17] VITALS: PULSE 78; RESP 16
[2023-02-17 04:24] LABS: Basophils Absolute Auto 0.1 10^3/uL (0.0-0.1); Basophils Percent Auto 0.7 % (0.2-2.0); Eosinophils Absolute Auto 0.1 10^3/uL (0.0-0.7); Eosinophils Percent Auto 1.2 % (0.9-7.0); Hemoglobin 8.2 g/dL (12.0-16.0); Immature Granulocytes Abs Auto 0.05 10^3/uL (0.00-0.03); Immature Granulocytes Pct Auto 0.7 % (0.0-0.5); Lymphocytes Percent Auto 12.5 % (20.5-60.0); Mean Corpuscular HGB Conc 31.5 g/dL (29.9-35.2); Mean Corpuscular Hemoglobin 32.7 pg (26.7-34.0); Mean Corpuscular Volume 103.6 fL (81.0-99.0); Mean Platelet Volume 9.1 fL (9.5-13.5); Monocytes Percent Auto 12.8 % (1.7-12.0); Neutrophils Absolute Auto 5.5 10^3/uL (1.4-6.5); Neutrophils Percent Auto 72.1 % (43.0-75.0); Platelet Count 256 10^3/uL (150-450); Red Blood Count 2.51 10^6/uL (4.20-5.40); Red Cell Distribution Width 14.6 % (11.0-15.0); White Blood Count 7.6 10^3/uL (4.0-11.0)
[2023-02-17 04:46] LABS: Ammonia 29 umol/L (11-32); Magnesium 2.1 mg/dL (1.8-2.4); Phosphorus 4.1 mg/dL (2.6-4.7)
[2023-02-17 04:51] VITALS: BP 157/97; PULSE 89; RESP 18; TEMP 36.6; O2SAT 98
[2023-02-17 04:56] LABS: Alanine Aminotransferase 11 U/L (14-59); Albumin Globulin Ratio 0.5; Albumin Level 2.2 g/dL (3.4-5.0); Alkaline Phosphatase 57 U/L (46-116); Anion Gap 13.2; Aspartate Amino Transferase 19 U/L (15-37); BUN Creatinine Ratio 11.7; Bilirubin Total 0.4 mg/dL (0.2-1.0); Calcium 8.2 mg/dL (8.5-10.1); Carbon Dioxide 18.2 mmol/L (21.0-32.0); Chloride 102 mmol/L (98-107); Estimated GFR (African America 39 (>=60); Estimated GFR (Non-African Ame 32 (>=60); Globulin 4.3 g/dL; Glucose 102 mg/dL (74-106); Potassium 4.4 mmol/L (3.5-5.1); Sodium 129 mmol/L (136-145); Total Protein 6.5 g/dL (6.4-8.2)
[2023-02-17] MEDS: GUAIFENESIN 600 MG TAB.ER.12H PO (05:03)
[2023-02-17] MEDS: LACTULOSE 10 GM/15 ML UD CUP 20 GM PO (05:04)
[2023-02-17] MEDS: BENZONATATE 100 MG CAPSULE PO (06:34)
[2023-02-17] MEDS: LEVOTHYROXINE SODIUM 100 MCG TABLET PO (06:34)
[2023-02-17] MEDS: LACTOSE -REDUCED (ENSURE ORIGINAL 237 ML LIQUID) PO (08:59)
[2023-02-17] MEDS: METOPROLOL SUCCINATE 100 MG TAB.ER.24H PO (08:59)
[2023-02-17] MEDS: CHOLECALCIFEROL (VITAMIN D3) 125 MCG/5000 UNIT TABLET PO (08:59)
[2023-02-17] MEDS: ENOXAPARIN SODIUM 30 MG/0.3 ML SYRINGE SUBQ (08:59)
[2023-02-17] MEDS: THIAMINE MONONITRATE (VIT B1) 100 MG TABLET PO (08:59)
[2023-02-17 09:01] VITALS: BP 172/111; PULSE 108; RESP 22; O2SAT 100
--- NOTE | 2023-02-17 09:13 | CM.NOTE ---
Reached out to [place] about precert. Awaiting call back.
[2023-02-17 10:48] VITALS: BP 181/102
[2023-02-17] MEDS: PANTOPRAZOLE SODIUM 40 MG VIAL IV (10:48)
[2023-02-17] MEDS: HYDRALAZINE HCL 20 MG/ML VIAL 10 MG IVP (10:48)
--- NOTE | 2023-02-17 11:29 | PT.DAILY ---
Physical Therapy Daily Note PT Daily Note/Assess Start: 02/14/23 11:57 Freq: Status: Active Protocol: Document 02/17/23 11:26 KAYODE (Rec: 02/17/23 11:28 KAYODE [id number]) Physical Therapy Daily Note/Assessment Time In/Time Out Time In 11:13 Time Out 11:23 Pain In Pain N/A Pain Out Pain N/A Subjective Subjective Pt sitting in BS chair upon arrival. Agrees to PT. needs to use restroom. Therapeutic Activity Time Therapeutic Activity Minutes (minutes) 8 Therapeutic Activity Units 1 Therapeutic Activity Treatment Chair Transfer Ability Standby Assistance Therapeutic Activity Comments Sit>stand from BS chair SBA to RW. Amb 5' to restroom. Toilet transfer using grab bar SUP. Able to complete pericare and toilet transfer SUP. Washes hands at sink and washes face 3 min without LOB. Amb with RW 120', SBA without LOB. Min fatigue upon completion. Offered seated ex but pt declines at this time. Returned to BS chair with call light in reach and needs met. Total Physical Therapy Time Total Therapy Minutes 8 Total Physical Therapy Units 1 Summary Daily Note Summary Cont to show improvements with gait ability/stability. Good tolerance with ADLs in restroom without LOB.
--- NOTE | 2023-02-17 11:49 | CM.NOTE ---
Rounds made with Dr. Red. Working with P.T. on arrival. Ambulating with walker in [place]. Would like to go home with a walker. Plan is discharge to home.
--- NOTE | 2023-02-17 11:52 | P.DS_ITS ---
Seen and examined. Doing well. No active complaints. Case d/w [place]. Chart reviewed. Agreewith her findings and treatment plan Exam: Sitting in chair, NAD AAOX 3, non focal. Assessment and plan Hepatic encephalopathy Alcohol withdrawal DASHAWN Hyponatremia hypokalemia Stable for d/c. Revered well and was doing well - walking w/o assist, stable gait, balance. Stable for d./c Encouraged alcohol cessation. F/u with PCP in one week DS: Providers Provider Date of admission: 02/13/23 04:25 Primary care physician: MARIA DE JESUS ALVARADO Consults: 02/13/23 05:49 Occupational Therapy Eval and Treat Routine Reason for consultation: weakness Physical Therapy Eval and Treat Routine Reason for consultation: weakness Discharging clinician: [place] Duke DS: Diagnosis Discharge Diagnosis (1) Alcohol withdrawal delirium: (2) Acute metabolic encephalopathy: (3) Acute kidney injury: (4) Accidental fall: (5) Fracture of nasal bone: (6) Generalized weakness: (7) Hyponatremia: (8) Hypokalemia: (9) Hypomagnesemia: (10) Hypocalcemia: (11) Hyperammonemia: (12) Hypoalbuminemia due to protein-calorie malnutrition: (13) Atrial fibrillation: (14) Hypertension: (15) Hypothyroidism: (16) Anxiety and depression: (17) Hepatic encephalopathy: DS: Summary Hospital Course Hospital Course: The patient was admitted with acute metabolic encephalopathy and frequent falls 2/2 chronic EtOH abuse. An acute right nasal fracture was noted on admission imaging. An ammonia level was checked and found to be elevated. This was treated with lactulose and resolved and lactulose dosing was discontinued. Unfortunately hyperammonemia recurred and lactulose was resumed and will likely be necessary long-term. Chronic hepatic encephalopathy is suspected in setting of long-term EtOH abuse although neither liver cirrhosis on imaging or transaminitis on labs was noted. Patient also has significant electrolyte derangements likely as due to her chronic EtOH abuse. Magnesium was repleted multiple times, as was potassium. Calcium was closely monitored but this improved with magnesium and vitamin D supplementation alone. Patient's hypertension was poorly controlled requiring as needed hydralazine doses. Her home metoprolol succinate was increased at discharge. The patient was very weak on admission and physical therapy recommended SNF admission for strengthening at discharge. We attempted to have the patient placed but were unable to obtain insurance authorization. By the time of discharge however the patient's strength was significantly improved and she was deemed safe to go home with self-care. She has been strongly encouraged to stop smoking and stop drinking completely. Patient was also encouraged to pursue outpatient alcohol treatment after discharge. The patient is being discharged home in stable condition with new prescriptions for lactulose, increase metoprolol succinate, magnesium oxide supplementation and a prescription for a walker should the patient require additional support with ambulation. She should follow-up with her PCP within 5 to 7 days and obtain a repeat CMP and magnesium level within 1 week. Status at Discharge Functional status at discharge: independent ambulation Overall status at discharge: patient is progressing back to baseline Time Spent with Patient Time attestation: Total time spent providing and/or coordinating discharge services: Time spent: greater than 30 minutes Specific discharge activities: Physical exam, discussion of discharge plan, questions answered. Exam Constitutional Vital Signs, click to edit/add: Last Vital Signs Temp 97.9 F 02/17/23 04:51 Pulse 108 H 02/17/23 09:01 Resp 22 02/17/23 09:01 BP 181/102 H 02/17/23 10:48 Pulse Ox 100 02/17/23 09:01 O2 Del Method Room Air 02/17/23 09:01 Common normals: no apparent distress, oriented x3 and alert General appearance: cooperative Orientation/consciousness: Yes awake HENMT Common normals: normocephalic and head/scalp atraumatic Eye Common normals: PERRL, EOMs intact bilaterally, conjunctivae normal and no scleral icterus Respiratory Common normals: normal respiratory effort and no use of accessory muscles Effort & inspection: able to speak in complete sentences and symmetric chest movement Auscultation: wheezes (Faint BLL EE) Cardio Common normals: no JVD, regular rate, regular rhythm, S1 normal heart sound, S2 normal heart sound, no murmurs and peripheral pulses 2+ throughout GI Common normals: Normal to inspection, nondistended, normoactive bowel sounds present and soft to palpation Palpation: tender (Mild, diffuse, non-focal) Extremity Common normals: normal to inspection, full ROM, normal capillary refill and no pedal edema Neuro Common normals: oriented x3, moves all extremities, no focal motor deficits and no sensory deficits noted Sensorium/orientation: awake and alert Speech: speech normal Psych Common normals: mental status grossly normal and activity/motor behavior normal DS: Data Data Completed and Pending Labs on day of discharge: Labs from last 24 hours 02/17/23 03:58 WBC 7.6 RBC 2.51 L Hgb 8.2 L Hct 26.0 L MCV 103.6 H MCH 32.7 MCHC 31.5 RDW 14.6 Plt Count 256 MPV 9.1 L Neut % (Auto) 72.1 Lymph % (Auto) 12.5 L [place] % (Auto) 12.8 H Eos % (Auto) 1.2 Baso % (Auto) 0.7 Neut # (Auto) 5.5 Lymph # (Auto) 1.0 L [place] # (Auto) 1.0 H Eos # (Auto) 0.1 Baso # (Auto) 0.1 Abs Immat Gran (auto) 0.05 H Imm/Tot Granulo (auto) 0.7 H Sodium 129 L Potassium 4.4 Chloride 102 Carbon Dioxide 18.2 L Anion Gap 13.2 BUN 19.0 H Creatinine 1.62 H Est GFR ( Amer) 39 L Est GFR (Non-Af Amer) 32 L BUN/Creatinine Ratio 11.7 Glucose 102 Calcium 8.2 L Phosphorus 4.1 Magnesium 2.1 Total Bilirubin 0.4 AST 19 ALT 11 L Alkaline Phosphatase 57 Ammonia 29 Total Protein 6.5 Albumin 2.2 L Globulin 4.3 Albumin/Globulin Ratio 0.5 Discharge Plan Discharge Disposition: Home, Self-Care Discharge Medications: New lactulose 10 gram/15 mL (15 mL) Solution 20 g PO BID Qty: 3600 1RF magnesium oxide 400 mg magnesium tablet 400 mg PO BID Qty: 60 0RF (KARINA) geeta Platac See Rx Instructions .Route Qty: 1 0RF Rx Instructions: As directed metoprolol succinate 100 mg tablet extended release 24 hr 150 mg PO DAILY Qty: 45 0RF Continued levothyroxine 100 mcg tablet 100 mcg PO DAILY naltrexone 50 mg tablet 50 mg PO DAILY Vraylar 1.5 mg capsule 1.5 mg PO DAILY cholecalciferol (vitamin D3) 125 mcg (5,000 unit) capsule 5,000 unit PO DAILY thiamine mononitrate (vit B1) 100 mg tablet 100 mg PO DAILY Discontinued metoprolol succinate 100 mg tablet extended release 24 hr 100 mg PO DAILY Activity: increase activity as tolerated Diet: advance to your usual diet Patient Instructions: Lactulose (By mouth), Magnesium (By mouth), Hypomagnesemia (DC), Alcohol Use Disorder (DC) Activity Restrictions/Additional Instructions: - Recommend repeat TSH in 1 mo - Recommend CMP, Mag level in 1 week - Pursue complete alcohol and tobacco cessation (Patient has nicoderm patches at home). Recommend outpatient alcohol treatment program. Forms: Portal Instructions Referrals: MARIA DE JESUS ALVARADO [Primary Care Provider] - 1 week Follow Up Appointments: - Follow up with your PCP within 5-7 days. Office is closed today. Call #[phone] for an appointment as advised on Monday.
--- NOTE | 2023-02-17 11:52 | CM.NOTE ---
Updated [place] Mallory after speaking with Monica Warren (no precert at this time). Pt will be discharged to home d/t improvement and ambulation. Pt also requests to discharge to home. [place] Mallory will write for home walker. Called [facility] to see if any avaiable walkers, message left. Pt wishes to speak with boyfriend to decide if she would like services.
[2023-02-17] MEDS: IPRATROPIUM/ALBUTEROL SULFATE 3 ML AMPUL.NEB IH (12:06)
[2023-02-17 12:32] VITALS: BP 143/113; TEMP 36.8
--- NOTE | 2023-02-17 13:26 | CM.NOTE ---
Spoke with pt's daughter, explained to her about discharge to home. Pt was given script for walker. Daughter states pt has home walker. Pt and daughter both refuses HH services at this time.
--- NOTE | 2023-02-20 12:15 | CM.DCFOLLOWU ---
Person spoke with: Boyfriend How are you feeling? She is doing well How is your pain? No pain Did you understand your discharge instructions? Yes Do you have any questions about your discharge instructions? No Were you given any prescriptions at discharge? Yes Were you able to get your prescriptions filled? Yes Do you understand how to take your medications as ordered? Yes Do you have any questions about your follow up appointment and do you plan to keep your follow up appointment? Calling to schedule appt today with family care doctor Is there anything else that you would like to discuss? No Questions/Comments/Concerns/Other:
== END 2023-02-17 15:30 | disposition home or self-care (01) | DRG 896 ==
LOC: ER 02:31 → ICU 04:26
PROVIDERS: Internal Medicine; Admitting Provider Internal Medicine; Emergency Provider Student in an Organized Health Care Education/Training Program; PCP Family Medicine; Visit Provider Nurse Practitioner
DX: F10.231 Alcohol dependence with withdrawal delirium (principal); G93.41 Metabolic encephalopathy; N17.9 Acute kidney failure, unspecified; E46 Unspecified protein-calorie malnutrition; E87.1 Hypo-osmolality and hyponatremia; I48.20 Chronic atrial fibrillation, unspecified; K76.82 Hepatic encephalopathy; S02.2XXA Fracture of nasal bones, initial encounter for closed fracture; W18.2XXA Fall in (into) shower or empty bathtub, initial encounter; E87.6 Hypokalemia; E83.42 Hypomagnesemia; F41.1 Generalized anxiety disorder; F17.210 Nicotine dependence, cigarettes, uncomplicated; F32.A Depression, unspecified; I10 Essential (primary) hypertension; Z68.27 Body mass index [BMI] 27.0-27.9, adult; Z79.899 Other long term (current) drug therapy; Z79.890 Hormone replacement therapy; E83.51 Hypocalcemia; Z82.49 Family history of ischemic heart disease and other diseases of the circulatory system; Z83.3 Family history of diabetes mellitus; Z83.6 Family history of other diseases of the respiratory system
CPT/HCPCS: 36415; 36416; 51702; 70450; 70486; 71045; 71250; 72125; 74176; 76705; 80048; 80053; 80307; 80320; 81001; 82140; 82306; 82550; 82948; 83605; 83690; 83735; 84100; 84439; 84443; 84480; 84484; 85025; 85610; 85730; 93005; 94640; 94667; 94668; 96365; 96366; 96367; 96368; 96372; 96375; 96376; 97110; 97161; 97165; 97530; 97535; 99285; Q3014

== ENCOUNTER 2024-01-12 13:59 | Outpatient (OUT) | payer OTHER, SELFPAY ==
--- NOTE | 2024-01-12 14:03 | US_ITS ---
Patient Name: ORESTES ALVARES MR#: [id number] : 1965 Exam Date: 01/12/2024 Ordering Doctor: TAMMY WANG DIN[employer]/FIREMANAdwoa RADIOLOGY REPORT PROCEDURE: MM TOMOSYNTHESIS DIAGNOSTIC BI, 01/12/2024, 14:05 US BREAST BI COMPLETE, 01/12/2024, 14:56 COMPARISON: MG MAMM TAMARA SCRN W CAD DIG, 12/17/2013. MG MAMM TAMARA SCRN W CAD DIG, 10/09/2012. INDICATIONS: Increase Size Of Breast, Change Of Skin Of Breast Calculator Name NCI Breast Cancer Risk Assessment Tool 5 Year Breast Cancer Risk 1.80% Lifetime Breast Cancer Risk 8.90% Personal Breast Cancer No Personal Ovarian Cancer No Treatments None Family Cancers Father with lung cancer at age 72. LOCATION: [facility] BREAST COMPOSITION: There are scattered areas of fibroglandular density. FINDINGS: DIAGNOSTIC CATEGORY 5--HIGHLY SUGGESTIVE OF MALIGNANCY. HIGH PROBABILITY OF MALIGNANCY BASED ON THE FOLLOWING: RIGHT BREAST: Markedly increased density throughout the breast suggestive of edematous changes. Marked anterior skin thickening. ULTRASOUND evaluation demonstrates marked skin thickening and edema throughout. LEFT BREAST: Markedly increased density throughout the breast suggestive of edematous changes. Marked anterior skin thickening. 1.6 cm spiculated mass within anterior upper inner quadrant. ULTRASOUND evaluation demonstrates a spiculated 2.3 cm geographic shaped hypoechoic area within the anterior breast, 10 o'clock position measuring 1.4 x 1.1 x 1.1 cm. No appreciable posterior shadowing or internal blood flow; this could represent a mass or collection of fluid. Marked skin thickening and edema throughout the breast. RECOMMENDATIONS: ULTRASOUND-GUIDED CORE BIOPSY: LEFT BREAST of anterior upper inner quadrant geographic shaped spiculated mass. SURGICAL BIOPSY: BILATERAL BREASTS (skin punch biopsy would be most beneficial as the overall appearance is suspected to represent inflammatory breast carcinoma bilaterally.) PLEASE NOTE: A NORMAL MAMMOGRAM DOES NOT EXCLUDE THE POSSIBILITY OF BREAST CANCER. A CLINICALLY SUSPICIOUS PALPABLE LUMP SHOULD BE BIOPSIED. Dictated by: Orestes Beyer M.D. on 01/12/2024 at 15:38 Approved by: Orestes Beyer M.D. on 01/12/2024 at 16:04
--- OUTSIDE RECORDS SUMMARY | 2024-01-12 14:11 | XMS_ITS | CCD ---
Author Organization [facility] [place] [facility] Care Team Providers Care Hydroponics Worker Name Role Phone PHYSICIAN, DEFAULT Unavailable Unavailable PHYSICIAN, DEFAULT Unavailable Unavailable CASON, LASHA Unavailable Unavailable PHYSICIAN, DEFAULT Unavailable Unavailable PHYSICIAN, DEFAULT Unavailable Unavailable CASON, LASHA Unavailable Unavailable DO Segundo Rawls Primary Care Provider [phone] DO Hong Mcintosh Admit Provider DO Hong Mcintosh Attending Provider MD Rehan Russ Other Provider MD Nilesh Oakley Other Provider RAMONITA Persaud Other Provider Unavailable DO Gillian Romano Other Provider MD Kylah Kingsley Other Provider MD Sher Frazier Other Provider MD [place] Cardoso Other Provider MD Segundo Main Other Provider JANETTE Wright Other Provider MD Estefania Martinez Other Provider MD Abbey Bach Other Provider MD Naila Kolb Other Provider MD Luis Sams Other Provider MD Lowell Trejo Other Provider MD Benedicto Santamaria Other Provider MD Lul Austin Jr Other Provider MD Jagruti Ugalde Other Provider MD Brad Gan Other Provider EVAN, DR UNIQUE Sher Consulting Unavailable ANNA, DR NEWELL Admitting Unavailable JENNY, DR PRETTY Primary Care Unavailable ANNA, DR NEWELL Attending Unavailable STEVEN, DR IZZY Sheridan Consulting Unavailabl e ANNA, DR NEWELL Consulting Unavailable ROSALINDA SALMERON Consulting Unavailable CODY ALEXANDER Consulting Unavailable JUNO HERNÁNDEZ Admitting Unavailable JENNY, DR PRETTY Primary Care Unavailable AYDE, DR DENISE Sher Consulting Unavailable JUNO HERNÁNDEZ Attending Unavailable JUNO HERNÁNDEZ Consulting Unavailable MD Luis SAMS Attending Unavailable HONG MCINTOSH Referring UnavailDO Segundo Schaeffer Primary Care Provider [phone] DO Caden Jarrell Emergency Provider Vaibhav William Unavailable Caden Jarrell Attending Unavailable Caden Jarrell Admitting Unavailable Segundo Rawls Primary Care Unavailable Segundo Rawls Primary Care Unavailable Hong Mcintosh Attending UnavailHong Paige Admitting UnavailRehan Gusman Consulting Unavailabl e Nilesh Oakley Consulting Unavailable Shawnee Persaud Consulting Unavailable Gillian Romano Consulting Unavailable Kylah Kingsley Consulting Unavailable Sher Frazier Consulting Unavail able [place] Cardoso Consulting Unavailable Segundo Main Consulting Unavailab Karena Dooley Consulting Unavailable Estefania Martinez Consulting Unavailable Abbey Bach Consulting Unavailab Naila Macedo Consulting Unavailable Luis Sams Consulting Unavailable Lowell Trejo Consulting Unavailable Benedicto Santamaria Consulting Unavailable Lul Austin Jr Consulting Unavailable Jagruti Ugalde Consulting Unavailable Brad Gan Consulting Unavailable Allergies Allergy Classification Reported Allergen(s) Allergy Type Date of Onset Reaction(s) Facility (2 sources) cephalexin; Translations: [KEFLEX] Drug Allergy 4 AOF [facility] Repository (8 sources) predniSONE; Translations: [PREDNISONE] Drug Allergy 5 Swelling [facility] Rep[facility] (6 sources) Cephalexin; Translations: [cephalexin] Drug Allergy 2 Nausea, Unknown [facility] Medications Current Medications Medication Drug Class(es) Dates Sig (Normalized) Sig (Original) ascorbic acid 500 mg oral tablet (5 sources) Vitamin C Start: 12-10-2021 take 1 tablet by mouth at breakfast Ascorbic Acid (Vitamin C) (Vitamin C) 500 mg Tablet Active 500 MG PO With breakfast and lunch 60 December 10, 2021 12:00am Calcium 1000 + D 1000-20 MG-MCG (1 source) take 1 tablet by mouth twice daily Calcium 1000 + D 1000-20 MG-MCG 1 tablet with a meal Orally twice a day Active calcium carbonate 1250 mg oral tablet (4 sources) Start: 12-10-2021 Calcium Carbonate (Oyster Shell Calcium 500) 500 mg calcium (1,250 mg) Tablet Active 1000 MG PO Twice daily 120 December 10, 2021 12:00am calcium carbonate 298 mg / magnesium chloride 596 mg delayed release oral tablet (1 source) take 1 tablet by mouth every twenty-four hours Slow-Mag 71.5-119 MG 1 TABLET Orally Once a day Active cholecalciferol 0.01 mg oral tablet (4 sources) Vitamin D Start: 12-10-2021 take 1 tablet by mouth twice daily at mealtime Cholecalciferol (Vitamin D3) (Vitamin D3) 10 mcg (400 unit) Tablet Active 20 MCG PO Twice daily with meals 120 December 10, 2021 12:00am ferrous sulfate 324 mg delayed release oral tablet (5 sources) Start: 12-10-2021 Ferrous Sulfate Active 324 MG PO Q48H 15 December 10, 2021 12:00am take 1 tablet by ryan th every twenty-four hours Ferrous Sulfate 324 MG 1 tablet Orally Once a day Not-Taking folic acid 1 mg oral tablet (5 sources) Start: 12-10-2021 take 1 mg by mouth once daily Folic Acid Active 1 MG PO Daily 30 December 10, 2021 12:00am magnesium oxide 400 mg oral tablet (4 sources) Start: 09-28-2023 End: 09-28-2023 take 400 mg by mouth twice daily Magnesium Oxide Active 400 MG PO Twice daily 180 90 September 28, 2023 3:07pm metoprolol tartrate 100 mg oral tablet (9 sources) beta-Adrenergic Humberto Start: 09-28-2023 End: 09-28-2023 take 150 mg by mouth once daily Metoprolol Tartrate Active 150 MG PO Daily 135 90 September 28, 2023 3:07pm Start: 12-04-2021 End: 09-28-2023 take 100 mg by mouth once daily Metoprolol Succinate Discontinued 100 MG PO Daily December 04, 2021 12:00am September 28, 2023 2:56pm thiamine 200 mg oral tablet (5 sources) Start: 12-10-2021 take 200 mg by mouth once daily Thiamine Hcl (Vitamin B1) Active 200 MG PO Daily 60 30 December 10, 2021 12:00am take 1 tablet by mouth once charito y Thiamine HCl 100 MG 1 tablet Orally Once a day Active Vitamin D3 25 MCG (1000 UT) (1 source) take 1 tablet by ryan th twice daily Vitamin D3 25 MCG (1000 UT) 1 tablet Orally twice a day Active Completed/Discontinued Medications Medication Drug Class(es) Dates Sig (Normalized) Sig (Original) cariprazine 1.5 mg oral capsule (1 source) Atypical Antipsychotic take 1 capsule by mouth every twenty-four hours Vraylar 1.5 MG 1 capsule Orally Once a day Not-Taking diphenhydrAMINE hydrochloride 25 mg oral capsule (4 sources) Histamine-1 Receptor Antagonist Start: 12-04-2021 End: 12-10-2021 take 1 capsule by mouth twice daily Diphenhydramine Hcl (Benadryl) 25 mg Capsule Discontinued 25 MG PO Twice daily December 04, 2021 12:00am December 10, 2021 1:24pm furosemide 40 mg oral tablet (5 sources) Loop Diuretic Start: 12-10-2021 End: 09-28-2023 take 40 mg by mouth once daily Furosemide Discontinued 40 MG PO Daily at 0800 30 December 10, 2021 12:00am September 28, 2023 2:56pm Further refills, or dose adjustment, per Nephrology with Dr. Esposito. levoFLOXacin 750 mg oral tablet (4 sources) Quinolone Antimicrobial Start: 12-10-2021 End: 09-27-2023 Levofloxacin Discontinued 750 MG PO Q48H 4 8 December 10, 2021 12:00am September 27, 2023 4:47pm Next dose is due on Monday. levothyroxine sodium 0.1 mg oral capsule (11 sources) l-Thyroxine Start: 09-28-2023 End: 09-28-2023 take 100 ug by mouth once daily Levothyroxine Discontinued 100 MCG PO Daily September 28, 2023 3:06pm September 28, 2023 3:20pm Start: 12-04-2021 End: 09-28-2023 take 100 ug by mouth once daily Levothyroxine Active 1 00 MCG PO Daily September 28, 2023 12:00am take 1 tablet by ryan once daily in the morning Levothyroxine Sodium 100 MCG 1 tablet in the morning on an empty stomach Orally Once a day Active lisinopril 20 mg oral tablet (4 sources) Angiotensin Converting Enzyme Inhibitor Start: 12-04-2021 End: 12-10-2021 take 20 mg by mouth once daily Lisinopril Discontinued 20 MG PO Daily December 04, 2021 12:00am December 10, 2021 1:24pm magnesium chloride 598 mg delayed release oral tablet (4 sources) Start: 12-10-2021 End: 09-28-2023 take 1 tablet by mouth once daily Magnesium Chloride (Slow-Mag) 71.5 mg tablet,delayed release (DR/EC) Discontinued 71.5 MG PO Daily December 10, 2021 12:00am September 28, 2023 2:56pm naltrexone hydrochloride 50 mg oral tablet (1 source) Opioid Antagonist take 1 tablet by mouth every twenty-four hours Naltrexone HCl 50 MG 1 tablet Orally Once a day Not-Taking omeprazole 20 mg delayed release oral capsule (9 sources) Proton Pump Inhibitor Start: 12-04-2021 End: 09-28-2023 take 20 mg by mouth once daily Omeprazole Discontinued 20 MG PO Daily September 28, 2023 12:00am September 28, 2023 3:09pm sodium bicarbonate 650 mg oral tablet (5 sources) Start: 12-10-2021 End: 09-28-2023 take 650 mg by mouth three times daily Sodium Bicarbonate Discontinued 650 MG PO Three times daily December 10, 2021 12:00am September 28, 2023 2:57pm Problems Active Problems Problem Classification Problem Date Documented Date Episodic/Chronic Acute and unspecified renal failure (7 sources) Injury of kidney; Translations: [Acute kidney failure, unspecified] Onset: 12-04-2021 12-04-2021 Episodic Acute myocardial infarction (9 sources) Myocardial infarction; Translations: [Myocardial infarction type 2] Onset: 12-04-2021 12-05-2021 Chronic Alcohol-related disorders (9 sources) Alcohol abuse; Translations: [Alcohol abuse, uncomplicated] Onset: 12-04-2021 12-04-2021 Chronic Anxiety disorders (1 source) Anxiety disorder, unspecified; Translations: [ANXIETY DISORDER UNSPECIFIED] Onset: 12-21-2021 Chronic Cardiac dysrhythmias (15 sources) Atrial fibrillation; Translations: [Unspecified atrial fibrillation] Onset: 12-04-2021 12-06-2021 Chronic Chronic kidney disease (1 source) Chronic kidney disease stage 4; Translations: [Chronic kidney disease, stage 4 (severe)] Chronic Chronic kidney disease (2 sources) Chronic kidney disease; Translations: [Chronic kidney disease, stage III (moderate)] Chronic obstructive pulmonary disease and bronchiectasis (1 source) Chronic obstructive pulmonary disease, unspecified; Translations: [COPD UNSPECIFIED] Onset: 12-21-2021 Chronic Conditions associated with dizziness or vertigo (3 sources) Dizziness and giddiness; Translations: [DIZZINESS AND GIDDINESS] Onset: 12-03-2021 Episodic Deficiency and other anemia (1 source) Anemia of renal disease; Translations: [Anemia in chronic kidney disease] Chronic Deficiency and other anemia (1 source) Anemia in chronic kidney disease Chronic Deficiency and other anemia (4 sources) Macrocytic anemia; Translations: [Nutritional anemia, unspecified] 12-06-2021 Episodic Deficiency and other anemia (4 sources) Anemia; Translations: [Anemia, unspecified] 12-04-2021 Episodic Esophageal disorders (5 sources) Gastroesophageal reflux disease; Translations: [Gastro-esophageal reflux disease without esophagitis] 09-28-2023 Chronic Essential hypertension (14 sources) Hypertensive disorder; Translations: [Essential (primary) hypertension] Onset: 12-04-2021 12-04-2021 Chronic Fluid and electrolyte disorders (15 sources) Hyponatremia; Translations: [Hypo-osmolality and hyponatremia] Onset: 12-04-2021 12-04-2021 Episodic Hypertension with complications and secondary hypertension (4 sources) Hypertensive urgency ; Translations: [Hypertensive urgency] Chronic Malaise and fatigue (4 sources) Weakness; Translations: [WEAKNESS] Onset: 12-19-2021 Episodic Nutritional deficiencies (8 sources) Moderate protein energy malnutrition; Translations: [Moderate protein-calorie malnutrition] Onset: 12-04-2021 12-04-2021 Chronic Nutritional deficiencies (17 sources) Ascorbic acid deficiency; Translations: [Ascorbic acid deficiency] Onset: 12-04-2021 12-10-2021 Episodic Other aftercare (1 source) Other terminal clerk (current) drug therapy; Translations: [OTH BULK MAIL TECHNICIAN CURRENT DRUG THERAPY] Onset: 12-21-2021 Episodic Other and ill-defined heart disease (4 sources) Takotsubo cardiomyopathy; Translations: [Takotsubo syndrome] 12-05-2021 Chronic Other and ill-defined heart disease (5 sources) Takotsubo syndrome; Translations: [Takotsubo syndrome] Onset: 12-04-2021 12-10-2021 Chronic Other diseases of bladder and urethra (5 sources) Urethral stenosis; Translations: [Urethral stenosis] 12-08-2021 Episodic Other diseases of kidney and ureters (4 sources) Hydronephrosis; Translations: [Unspecified hydronephrosis] 12-08-2021 Episodic Other hematologic conditions (1 source) Other specified abnormalities of plasma proteins; Translations: [OTH SPEC ABNORM PLASMA PROTEINS] Onset: 12-07-2021 Episodic Other nutritional; endocrine; and metabolic disorders (5 sources) Hypomagnesemia; Translations: [Hypomagnesemia] 12-04-2021 Chronic Other nutritional; endocrine; and metabolic disorders (4 sources) Hypocalcemia; Translations: [Hypocalcemia] 12-04-2021 Chronic Other nutritional; endocrine; and metabolic disorders (3 sources) Hypocalcemia; Translations: [Hypocalcemia] Onset: 12-04-2021 12-10-2021 Chronic Other nutritional; endocrine; and metabolic disorders (5 sources) Hypomagnesemia; Translations: [Disorders of magnesium metabolism] Onset: 12-04-2021 12-10-2021 Chronic Other skin disorders (1 source) Breast changes; Translations: [Changes in skin texture] 12-27-2023 Episodic Other skin disorders (1 source) Changes in skin texture; Translations: [Changes in skin texture] 12-27-2023 Episodic Rheumatoid arthritis and related disease (5 sources) Rheumatoid arthritis; Translations: [Rheumatoid arthritis, unspecified] 09-28-2023 Chronic Substance-related disorders (1 source) Nicotine dependence, cigarettes, uncomplicated; Translations: [NICOTINE DEPEND CIGARETTES UNCOMP] Onset: 12-21-2021 Chronic Syncope (6 sources) Vasovagal syncope; Translations: [Syncope and collapse] Onset: 12-04-2021 12-06-2021 Episodic Systemic lupus erythematosus and connective tissue disorders (5 sources) Lupus erythematosus; Translations: [Systemic lupus erythematosus, unspecified] 09-28-2023 Chronic Thyroid disorders (10 sources) Hypothyroidism; Translations: [Hypothyroidism, unspecified] Onset: 12-04-2021 12-04-2021 Chronic Unclassified (1 source) CONTACT W/AND (SUSP) EXPOS COVID-19; Translations: [CONTACT W/AND (SUSP) EXPOS COVID-19] Onset: 12-21-2021 Unclassified (2 sources) Large breast; Translations: [Increased size of breast] 12-27-2023 Past or Other Problems Problem Classification Problem Date Documented Da te Episodic/Chronic Deficiency and other anemia (2 sources) Anemia, unspecified; Translations: [Anemia, unspecified] Onset: 12-04-2021 12-10-2021 Episodic Deficiency and other anemia (2 sources) Nutritional anemia, unspecified; Translations: [Unspecified deficiency anemia] Onset: 12-04-2021 12-10-2021 Episodic Other diseases of kidney and ureters (2 sources) Unspecified hydronephrosis; Translations: [Hydronephrosis] Onset: 12-04-2021 12-10-2021 Episodic Results Test Name Value Interpretation Reference Range Facility Activated partial thrombopla stin time (aPTT) in platelet poor plasma by coagulation aOrdered By: Caden Jarrell on 03-15-2022 aPTT Coag (PPP) [Time] 30.8 s 25.1-36.5 [facility] B-Type Natriuretic Peptideon 03-15-2022 Natriuretic peptide B (Bld) [Mass/Vol] 1767.0 pg/mL High 5-100 [facility] Comment on above: Result Comment: PERF ORMED BY: [facility] [address] [place] [address] PATHOLOGIST TRAFFIC I MANAGER BRITTNY SELLERS M.D. Performed By: #### V IT C, PET #### [facility] , Basic Metabolic Panelon 12-0 Anion gap [Moles/Vol] 14.5 mmol/L Normal 6.0-15.0 [facility] Comment on above: Performed By: #### V IT C, PETH #### [facility] , Calcium [Mass/Vol] 9.3 mg/dL Normal 8.2-10.[address] [facility] Comment on above: Performed By: #### V IT C, PETH #### [facility] , Chloride [Moles/Vol] 95 mmol/L Normal 95-114 [facility] Comment on above: Performed By: #### V IT C, PETH #### [facility] , CO2 [Moles/Vol] 22.9 mmol/L Normal 22.0-30.0 [facility] Comment on above: Performed By: #### V IT C, PETH #### [facility] , Creatinine [Mass/Vol] 1.34 mg/dL High 0.44-1.03 [facility] Comment on above: Performed By: #### V IT C, PETH #### [facility] , Creatinine Clr Calc Pharmacy 43.20 [facility] Comment on above: Result Comment: PERF ORMED BY: [facility] [address] [place] [address] PATHOLOGIST TRAFFIC I MANAGER BRITTNY SELLERS M.D. Performed By: #### V IT C, PETH #### [facility] , Estimated GFR ( Cheri 49 [facility] Comment on above: Result Comment: GFR estimated reference range: According to KDOQI guidelines, <60 ml/min/1.73m2 is sufficient to diagnose a patient with chronic kidney disease. Performed By: #### V IT C, PETH #### [facility] , Estimated GFR (Non- Am 40 [facility] Comment on above: Performed By: #### V IT C, PETH #### [facility] , Glucose [Mass/Vol] 129 mg/dL High 70-[address] [facility] Comment on above: Result Comment: [facility] Glucose Reference Range is dependent on time and content of last meal. Glucose of more than 200 mg/dL in a nonstressed, ambulatory subject supports the diagnosis of Diabetes Mellitus. ADA recommended reference range Performed By: #### V IT C, PETH #### [facility] , Potassium [Moles/Vol] 3.4 mmol/L Low 3.5-5.1 [facility] Comment on above: Performed By: #### V IT C, PETH #### [facility] , Sodium [Moles/Vol] 129 mmol/L Low 136-[address] [facility] Comment on above: Performed By: #### V IT C, PETH #### [facility] , Urea nitrogen [Mass/Vol] 14 mg/dL Normal 9-23 [facility] Comment on above: Performed By: #### V IT C, PETH #### [facility] , Basophils Auto (Bld) [#/Vol] Ordered By: Caden Jarrell on 03-15-2022 Basophils (Bld) [#/Vol] 0.1 10*3/uL 0.0-0.2 [facility] Basophils/100 WBC Auto (Bld) Ordered By: Caden Jarrell on 03-15-2022 Basophils/100 WBC (Bld) 0.9 % . [facility] Complete Blood Count Auto Di ffon 03-15-2022 Basophils (Bld) [#/Vol] 0.1 10*3/uL Normal 0.0-0.2 [facility] Comment on above: Result Comment: PERF ORMED BY: [facility] [address] [place] [address] PATHOLOGIST TRAFFIC I MANAGER BRITTNY SELLERS M.D. Performed By: #### V IT C, PETH #### [facility] , Basophils/100 WBC (Bld) 0.9 % Normal . [facility] Comment on above: Performed By: #### V IT C, PETH #### [facility] , Eosinophils (Bld) [#/Vol] 0.0 10*3/uL Normal 0.0-0.45 [facility] Comment on above: Performed By: #### V IT C, PETH #### [facility] , Eosinophils/100 WBC (Bld) 0.2 % Normal . [facility] Comment on above: Performed By: #### V IT C, PETH #### [facility] , Erythrocyte distribution width (RBC) [Ratio] 13.6 % Normal 11.9-15.3 [facility] Comment on above: Performed By: #### V IT C, PETH #### [facility] , Hematocrit (Bld) [Volume fraction] 31.6 % Low 34.0-46.4 [facility] Comment on above: Performed By: #### V IT C, PETH #### [facility] , Hemoglobin (Bld) [Mass/Vol] 11.0 g/dL Low 11.8-15.4 [facility] Comment on above: Performed By: #### V IT C, PETH #### [facility] , Lymphocytes (Bld) [#/Vol] 0.8 10*3/uL Low 1.00-4.8 [facility] Comment on above: Performed By: #### V IT C, PETH #### [facility] , Lymphocytes/100 WBC (Bld) 10.6 % Normal . [facility] Comment on above: Performed By: #### V IT C, PETH #### [facility] , MCH (RBC) [Entitic mass] 32.1 pg Normal 24.7-34.3 [facility] Comment on above: Performed By: #### V IT C, PETH #### [facility] , MCV (RBC) [Entitic vol] 92.3 fL Normal 80-100 [facility] Comment on above: Performed By: #### V IT C, PETH #### [facility] , Mean Corpuscular HGB Conc 34.7 g/dL Normal 32.0-35.0 [facility] Comment on above: Performed By: #### V IT C, PETH #### [facility] , Monocytes (Bld) [#/Vol] 0.8 10*3/uL Normal 0.0-0.8 [facility] Comment on above: Performed By: #### V IT C, PETH #### [facility] , Monocytes/100 WBC (Bld) 19.45 % Normal 0.00-20.00 [facility] Comment on above: Performed By: #### V IT C, PETH #### [facility] , Monocytes/100 WBC (Bld) 10.2 % Normal . [facility] Comment on above: Performed By: #### V IT C, PETH #### [facility] , Neutrophils (Bld) [#/Vol] 6.1 10*3/uL Normal 1.8-7.7 [facility] Comment on above: Performed By: #### V IT C, PETH #### [facility] , Neutrophils/100 WBC (Bld) 78.1 % Normal . [facility] Comment on above: Performed By: #### V IT C, PETH #### [facility] , NRBC% 0.1 /100{WBC} Normal 0-0.5 [facility] Comment on above: Performed By: #### V IT C, PETH #### [facility] , Platelet mean volume (Bld) [Entitic vol] 7.1 fL Normal 6.3-10.7 [facility] Comment on above: Performed By: #### V IT C, PETH #### [facility] , Platelets (Bld) [#/Vol] 277 10*3/uL Normal 150-450 [facility] Comment on above: Performed By: #### V IT C, PETH #### [facility] , RBC (Bld) [#/Vol] 3.43 10*6/uL Low 3.60-5.00 [facility] Comment on above: Performed By: #### V IT C, PETH #### [facility] , WBC (Bld) [#/Vol] 7.8 10*3/uL Normal 3.8-11.[address] [facility] Comment on above: Performed By: #### V IT C, PETH #### [facility] , Creatine Kinaseon 03-15-2022 CK [Catalytic activity/Vol] 33 U/L Normal 22-269 [facility] Comment on above: Performed By: #### V IT C, PETH #### [facility] , Creatine kinase [Enzymatic a ctivity/volume] in Serum or PlasmaOrdered By: Caden Jarrell on 03-15-2022 CK [Catalytic activity/Vol] 33 U/L 22-269 [facility] Creatinine Kinase MBon 03-15 CK.MB [Mass/Vol] 1.7 ng/mL Normal 0.6-6.3 [facility] Comment on above: Performed By: #### V IT C, PETH #### [facility] , CKMB Relative Index 5.1 % High 0.00-2.50 [facility] Comment on above: Performed By: #### V IT C, PETH #### [facility] , Creatinine and Glomerular fi ltration rate.predicted panel (S/P/Bld)Ordered By: Caden Jarrell on 03-15-2022 Creatinine [Mass/Vol] 1.34 mg/dL 0.44-1.03 [facility] ECG 12 lead ECGon 03-15-2022 ECG 12 lead ECG [facility] [place] [address] Electrocardiograph Report Signed Patient: Juanita Redman MR#: [id number] : 1965 Acct:[id number] Age/Sex: 57 / F ADM Date: 03/15/22 Loc: ER Room: Type: [facility] ER Attending Dr: Ordering Provider: Caden Jarrell DO Date of Service: 03/15/2209/29/1802 ECG/ECG 12 lead ECG: Recheck/Abnormal Lab/Rx Copies to: Test Reason : Blood Pressure : / mmHG Vent. Rate : 095 BPM Atrial Rate : 375 BPM P-R Int : 000 ms QRS Dur : 080 ms QT Int : 340 ms P-R-T Axes : 000 040 049 degrees QTc Int : 427 ms Atrial flutter with variable AV block Cannot rule out Anterior infarct , age undetermined Abnormal ECG When compared with ECG of 09-DEC-2021 03:08, No significant change was found Confirmed by Caden Jarrell DO ([id number]) on 03/15/2022 10:30:31 PM Referred By: Electronically Signed By:Caden Jarrell DO Transcribed By: MUS Signed By Caden Jarrell DO 2 2230 Normal [facility] Eosinophils Auto (Bld) [#/Vo l]Ordered By: Caden Jarrell on 03-15-2022 Eosinophils (Bld) [#/Vol] 0.0 10*3/uL 0.0-0.45 [facility] Eosinophils/100 WBC Auto (Bl d)Ordered By: Caden Jarrell on 03-15-2022 Eosinophils/100 WBC (Bld) 0.2 % . [facility] Erythrocyte distribution wid th Auto (RBC) [Ratio]Ordered By: Caden Jarrell on 03-15-2022 Erythrocyte distribution width (RBC) [Ratio] 13.6 % 11.9-15.3 [facility] Estimated glomerular filtrat ion rate (GFR) non- AmericanOrdered By: Caden Jarrell on 03-15-2022 GFR/1.73 sq M.predicted among non-blacks MDRD (S/P/Bld) [Vol rate/Area] 40 mL/Min [facility] Hematocrit Auto (Bld) [Volum e fraction]Ordered By: Caden Jarrell on 03-15-2022 Hematocrit (Bld) [Volume fraction] 31.6 % 34.0-46.4 [facility] Hemoglobin [Mass/volume] in BloodOrdered By: Caden Jarrell on 03-15-2022 Hemoglobin (Bld) [Mass/Vol] 11.0 g/dL 11.8-15.4 [facility] Laboratory - Chemistry and C hemistry - challengeOrdered By: Caden Jarrell on 03-15-2022 Natriuretic peptide B (Bld) [Mass/Vol] 1767.0 pg/mL 5-100 [facility] Laboratory - CoagulationOrde red By: Caden Jarrell on 03-15-2022 PT Coag (PPP) [Time] 13.2 s 9.0-12.9 [facility] Leukocytes [#/volume] correc maxi for nucleated erythrocytes in Blood by Automated counOrdered By: Caden Jarrell on 03-15-2022 WBC corrected for nucl RBC Auto (Bld) [#/Vol] 7.8 10*3/uL 3.8-11.6 [facility] Lymphocytes Auto (Bld) [#/Vo l]Ordered By: Caden Jarrell on 03-15-2022 Lymphocytes (Bld) [#/Vol] 0.8 10*3/uL 1.00-4.8 [facility] Lymphocytes/100 WBC Auto (Bl d)Ordered By: Caden Jarrell on 03-15-2022 Lymphocytes/100 WBC (Bld) 10.6 % . [facility] MCH Auto (RBC) [Entitic mass ]Ordered By: Caden Jarrell on 03-15-2022 MCH (RBC) [Entitic mass] 32.1 pg 24.7-34.3 [facility] MCHC Auto (RBC) [Mass/Vol]Or dered By: Caden Jarrell on 03-15-2022 MCHC (RBC) [Mass/Vol] 34.7 g/dL 32.0-35.0 [facility] MCV Auto (RBC) [Entitic vol] Ordered By: Caden Jarrell on 03-15-2022 MCV (RBC) [Entitic vol] 92.3 fL 80-100 [facility] Monocyte distribution width [Entitic volume] in Blood by AutomatedOrdered By: Caden Jarrell on 03-15-2022 Monocyte distribution width Auto (Bld) [Entitic vol] 19.45 % 0.00-20.00 [facility] Monocytes Auto (Bld) [#/Vol] Ordered By: Caden Jarrell on 03-15-2022 Monocytes (Bld) [#/Vol] 0.8 10*3/uL 0.0-0.8 [facility] Monocytes/100 WBC Auto (Bld) Ordered By: Caden Jarrell on 03-15-2022 Monocytes/100 WBC (Bld) 10.2 % . [facility] Neutrophils Auto (Bld) [#/Vo l]Ordered By: Caden Jarrell on 03-15-2022 Neutrophils (Bld) [#/Vol] 6.1 10*3/uL 1.8-7.7 [facility] Neutrophils/100 WBC Auto (Bl d)Ordered By: Caden Jarrell on 03-15-2022 Neutrophils/100 WBC (Bld) 78.1 % . [facility] No Panel InformationOrdered By: Caden Jarrell on 03-15-2022 Estimated GFR () 49 mL/Min [facility] Comment on above: GFR estimated refere nce range: According to KDOQI guidelines, <60 ml/min/1.73m2 is sufficient to diagnose a patient with chronic kidney disease. Pharmacy Creatinine Clearance (Chem 43.20 [facility] Nucleated erythrocytes [Pres ence] in Blood by Automated countOrdered By: Caden Jarrell on 03-15-2022 Nucleated RBC Auto Ql (Bld) 0.1 /100{WBC} 0-0.5 [facility] Partial Thromboplastin Timeo n 03-15-2022 aPTT Coag (Bld) [Time] 30.8 s Normal 25.1-36.5 [facility] Comment on above: Result Comment: PERF ORMED BY: [facility] [address] [place] [address] PATHOLOGIST TRAFFIC I MANAGER BRITTNY SELLERS M.D. Performed By: #### V IT C, PETH #### [facility] , Platelet mean volume Auto (B ld) [Entitic vol]Ordered By: Caden Jarrell on 03-15-2022 Platelet mean volume (Bld) [Entitic vol] 7.1 fL 6.3-10.7 [facility] Platelet poor plasma interna tional normalized ratio (INR) by coagulation assay (relatOrdered By: Caden Jarrell on 03-15-2022 INR Coag (PPP) [Relative time] 1.2 {INR} [facility] Comment on above: INR Therapeutic Rang e A) Pre- and Peroperative OAT started two weeks before surgery. NOT HIP SURGERY: 1.5 - 2.5 HIP SURGERY: 2 - 3B) Primary and secondary prevention of venous THROMBOSIS: 2 - 3C) Active venous thrombosis, pulmonary embolismand prevention of recurrent venous thrombosis: 2 - 3D) Prevention of arterial thromboembolismincluding patients with mechanical heart valves: 3 - 4.5 Platelets Auto (Bld) [#/Vol] Ordered By: Caden Jarrell on 03-15-2022 Platelets (Bld) [#/Vol] 277 10*3/uL 150-450 [facility] Prothrombin Time INRon 03-15 INR Coag (PPP) [Relative time] 1.2 {INR} Normal [facility] Comment on above: Result Comment: INR Therapeutic Range A) Pre- and Peroperative OAT started two weeks before surgery. NOT HIP SURGERY: 1.5 - 2.5 HIP SURGERY: 2 - 3 B) Primary and secondary prevention of venous THROMBOSIS: 2 - 3 C) Active venous thrombosis, pulmonary embolism and prevention of recurrent venous thrombosis: 2 - 3 D) Prevention of arterial thromboembolism including patients with mechanical heart valves: 3 - 4.5 Performed By: #### V IT C, PET #### [facility] , PT Coag (PPP) [Time] 13.2 s High 9.0-12.9 [facility] Comment on above: Performed By: #### V IT C, PET #### [facility] , RBC Auto (Bld) [#/Vol]Ordere d By: Caden Jarrell on 03-15-2022 RBC (Bld) [#/Vol] 3.43 10*6/uL 3.60-5.00 [facility] Serum or plasma anion gap de terminationOrdered By: Caden Jarrell on 03-15-2022 Anion gap [Moles/Vol] 14.5 mmol/L 6.0-15.0 [facility] Serum or plasma calcium sigifredo urement (mass/volume)Ordered By: Caden Jarrell on 03-15-2022 Calcium [Mass/Vol] 9.3 mg/dL 8.2-10.[address] [facility] Serum or plasma chloride matti surement (moles/volume)Ordered By: Caden Jarrell on 03-15-2022 Chloride [Moles/Vol] 95 mmol/L 95-114 [facility] Serum or plasma creatine kin ase MB (CKMB)/total creatine kinase (CK) ratio by calculaOrdered By: Caden Jarrell on 03-15-2022 CK.MB Calc [Catalytic fraction] 5.1 % 0.00-2.50 [facility] Serum or plasma creatine kin ase MB measurement (mass/volume)Ordered By: Caden Jarrell on 03-15-2022 CK.MB [Mass/Vol] 1.7 ng/mL 0.6-6.3 [facility] Serum or plasma glucose sigifredo urement (mass/volume)Ordered By: Caden Jarrell on 03-15-2022 Glucose [Mass/Vol] 129 mg/dL 70-[address] [facility] Comment on above: ADA recommended refe rence rangeRandom Glucose Reference Range is dependent on time and content of last meal. Glucose of more than 200 mg/dL in a nonstressed, ambulatory subject supports the diagnosis of Diabetes Mellitus. Serum or plasma potassium me asurement (moles/volume)Ordered By: Caden Jarrell on 03-15-2022 Potassium [Moles/Vol] 3.4 mmol/L 3.5-5.1 [facility] Serum or plasma sodium measu rement (moles/volume)Ordered By: Caden Jarrell on 03-15-2022 Sodium [Moles/Vol] 129 mmol/L 136-[address] [facility] Serum or plasma total carbon dioxide measurement (moles/volume)Ordered By: Caden Jarrell on 03-15-2022 CO2 [Moles/Vol] 22.9 mmol/L 22.0-30.0 [facility] Serum or plasma urea nitroge n measurement (mass/volume)Ordered By: Caden Jarrell on 03-15-2022 Urea nitrogen [Mass/Vol] 14 mg/dL 12-31 [facility] Troponin I High Sensitivityo n 03-15-2022 Troponin I High Sensitivity 24 pg/mL High 0 [facility] Comment on above: Result Comment: PERF ORMED BY: [place] [address] PATHOLOGIST TRAFFIC I MANAGER BRITTNY SELLERS M.D. Performed By: #### V IT C, PETH #### [facility] , Troponin I.cardiac [Mass/vol ume] in Serum or Plasma by High sensitivity methodOrdered By: Caden Jarrell on 03-15-2022 Troponin I.cardiac High sensitivity method [Mass/Vol] 24 pg/mL 0 [facility] WBC Auto (Bld) [#/Vol]Ordere d By: Caden Jarrell on 03-15-2022 WBC (Bld) [#/Vol] 7.8 10*3/uL 3.8-11.[address] [facility] XR chest 1V portableon 03-15 XR chest 1V portable [facility] [address] [place] [id number] XRay Report Signed Patient: Juanita Redman MR#: [id number] : 1965 Acct:[id number] Age/Sex: 57 / F ADM Date: 03/15/22 Loc: ER Room: Type: [facility] ER Attending Dr: Copies to: Caden Jarrell DO Ordering Provider: Caden Jarrell DO Date of Service: 03/15/22 XR/XR chest 1V portable: Recheck/Abnormal Lab/Rx Plain film chestsingle view HISTORY:High blood pressure. COMPARISON:12/03/21 FINDINGS: Heart is enlarged. Hilar shadows stable. No acute lung process, pleural effusion or pneumothorax identified. Bony structures are intact. XR/XR chest 1V portable IMPRESSION: No acute process. Similar cardiomegaly. Impression dictated by: Zhen Bunch M.D.03/15/2022 7:52 PM Dictation Location: [place] [address] Transcribed By: [facility] 03/15/221951 Dictated By: Zhen Bunch DO 03/15/221941 Signed By: 03/15/221951 [facility] CBC AUTO DIFFon 12-19-2021 BASO # 0.0 103/ul Normal 0.0-0.1 [facility] Comment on above: Performed By: #### H STROPN #### [facility] Laboratory [address] [place] [address] Dr. Debra Blake Basophils/100 WBC (Bld) 0.5 % Normal 0.2-2.0 [facility] Comment on above: Performed By: #### H STROPN #### [facility] Laboratory [address] [place] [address] Dr. Debra Blake EO # 0.1 103/ul Normal 0.0-0.7 [facility] Comment on above: Performed By: #### H STROPN #### [facility] [address] [place] [address] Dr. Debra Blake Eosinophils/100 WBC (Bld) 1.4 % Normal 0.9-7.0 [facility] Comment on above: Performed By: #### H STROPN #### [facility] [address] [place] [address] Dr. Debra Blake Erythrocyte distribution width (RBC) [Ratio] 14.1 % Normal 11.0-15.0 [facility] Comment on above: Performed By: #### H STROPN #### [facility] [address] [place] [address] Dr. Debra Blake Hematocrit (Bld) [Volume fraction] 26.2 % Critically low 36.0-48.0 [facility] Comment on above: Performed By: #### H STROPN #### [facility] [address] [place] [address] Dr. Debra Blake Hemoglobin (Bld) [Mass/Vol] 9.1 g/dL Critically low 12.0-16.0 [facility] Comment on above: Performed By: #### H STROPN #### [facility] [address] [place] [address] Dr. Debra Blake IG # 0.03 10e3/ul Normal 0.00-0.03 [facility] Comment on above: Performed By: #### H STROPN #### [facility] [address] [place] [address] [address] Debra Blake IG % 0.4 % Normal 0.0-0.5 [facility] Comment on above: Performed By: #### H STROPN #### [facility] [address] [place] [address] Dr. Debra Blake LYMPH # 1.5 103/ul Normal 1.2-3.8 [facility] Comment on above: Performed By: #### H STROPN #### [facility] [address] [place] [address] Dr. Debra Blake Lymphocytes/100 WBC (Bld) 19.0 % Critically low 20.5-60.0 [facility] Comment on above: Performed By: #### H STROPN #### [facility] [address] [place] [address] Dr. Debra Blake MANUAL DIFF REQ NO Normal [facility] Comment on above: Performed By: #### H STROPN #### [facility] [address] [place] [address] Dr. Debra Blake MCH (RBC) [Entitic mass] 34.3 pg Critically high 26.7-3 4.0 [facility] Comment on above: Performed By: #### H STROPN #### [facility] [address] [place] [address] Dr. Debra Blake MCHC (RBC) [Mass/Vol] 34.7 g/dL Normal 29.9-35.2 [facility] Comment on above: Performed By: #### H STROPN #### [facility] [address] [place] [address] Dr. Debra Blake MCV (RBC) [Entitic vol] 98.9 fL Normal 81.0-99.0 [facility] Comment on above: Performed By: #### H STROPN #### [facility] [address] [place] [address] Dr. Debra Blake MONO # 0.8 103/ul Normal 0.3-0.8 [facility] Comment on above: Performed By: #### H STROPN #### [facility] [address] [place] [address] Dr. Debra Blkae Monocytes/100 WBC (Bld) 10.0 % Normal 1.7-12.0 [facility] Comment on above: Performed By: #### H STROPN #### [facility] [address] [place] [address] Dr. Debra Blake NEUT # 5.5 103/ul Normal 1.4-6.5 [facility] Comment on above: Performed By: #### H STROPN #### [facility] [address] [place] [address] Dr. Debra Blake Neutrophils/100 WBC (Bld) 68.7 % Normal 43.0-75.0 [facility] Comment on above: Performed By: #### H STROPN #### [facility] [address] [place] [address] Dr. Debra Blake Platelet mean volume (Bld) [Entitic vol] 9.5 fL Normal 9.5-13.5 [facility] Comment on above: Performed By: #### H STROPN #### [facility] [address] [place] [address] Dr. Debra Blake PLT 300 103/ul Normal 150-450 [facility] Comment on above: Performed By: #### H STROPN #### [facility] [address] [place] [address] Dr. Debra Blake RBC 2.65 106/ul Critically low 4.20-5.40 [facility] Comment on above: Performed By: #### H STROPN #### [facility] [address] [place] [address] Dr. Debra Blake WBC 8.1 103/ul Normal 4.0-11.0 [facility] Comment on above: Performed By: #### H STROPN #### [facility] [address] [place] [address] Dr. Debra Blake Covid-19 PCR ([facility])on 12-09 SARS-CoV-2 (COVID-19) RNA YVONNE+probe Ql (Unsp spec) Not detected Normal NOT DETECTED [facility] Comment on above: Result Comment: When diagnostic testing is negative, the possibility of a false negative should be considered in the context of a patient's recent exposures and the presence of clinical signs and symptoms consistent with SARS-CoV-2. This test is not yet approved or cleared by the [place] FDA. When there are no FDA-approved or cleared tests available, and other criteria are met, FDA can make tests available under an emergency access mechanism called an Emergency Use Authorization (EUA). The EUA for this test is supported by the [employer] Picker of Health and Human Service's declaration that circumstances exist to justify the emergency use of in vitro diagnostics for the detection and/or diagnosis of the virus that causes COVID-19. This EUA will remain in effect for the duration of the COVID-19 declaration justifying emergency of IVDs, unless it is terminated or revoked by the FDA (after which the test may no longer be used). Performed By: #### C VDTB #### [facility] [address] [place] [address] Dr. Debra Blake ER URINE PROFILEon 2 Bilirubin Ql (U) Negative Normal NEGATIVE [facility] Comment on above: Performed By: #### H STROPN #### [facility] [address] [place] [address] Dr. Debra Blake Clarity (U) CLEAR Normal CLEAR [facility] Comment on above: Performed By: #### H STROPN #### [facility] [address] [place] [address] Dr. Debra Blake Color (U) LT. YELLOW Normal YELLOW [facility] Comment on above: Performed By: #### H STROPN #### [facility] [address] [place] [address] Dr. Yilan Blake ERUAHD A micrscopic examina tion will be performed if indicated. Normal [facility] Comment on above: Performed By: #### H STROPN #### [facility] [address] [place] [address] Dr. Debra Blake Glucose Ql (U) Negative Normal NEGATIVE [facility] Comment on above: Performed By: #### H STROPN #### [facility] [address] [place] [address] Dr. Debra Blake Hemoglobin Ql (U) Negative Normal NEGATIVE [facility] Comment on above: Performed By: #### H STROPN #### [facility] [address] [place] [address] Dr. Debra Blake Ketones Ql (U) Negative Normal NEGATIVE [facility] Comment on above: Performed By: #### H STROPN #### [facility] [address] [place] [address] Dr. Debra Blake LEUKOCYTES Negative Normal NEGATIVE [facility] Comment on above: Performed By: #### H STROPN #### [facility] [address] [place] [address] Dr. Debra Blake Nitrite Ql (U) Negative Normal NEGATIVE [facility] Comment on above: Performed By: #### H STROPN #### [facility] [address] [place] [address] Dr. Debra Blake pH (U) 7.0 [pH] Normal 5-9 [facility] Comment on above: Performed By: #### H STROPN #### [facility] [address] [place] [address] Dr. Debra Blake SPEC GRAVITY 1.010 Normal 1.005-<=1. 025 [facility] Comment on above: Performed By: #### H STROPN #### [facility] [address] [place] [address] Dr. Debra Blake UA PROTEIN TRACE Normal NEGATIVE/ TRACE [facility] Comment on above: Performed By: #### H STROPN #### [facility] [address] [place] [address] Dr. Debra Blake UR MICRO IND NOT INDICATED Normal [facility] Comment on above: Performed By: #### H KINGSTONPN #### [facility] [address] [place] [address] Dr. Debra Blake Urobilinogen Qn (U) 0.2 {Pascale'U}/dL Normal 0.2 - 1. 0 [facility] Comment on above: Performed By: #### H STROPN #### [facility] [address] [place] [address] Dr. Debra Blake ETHANOL (BLD ALC)on 12-20-19 ALC NOTE NOTE: 80 mg/dl is [facility] legal limit for a blood alcohol level Normal [facility] Comment on above: Performed By: #### E TH #### [facility] [address] [place] [address] Dr. Debra Blake Ethanol [Mass/Vol] mg/dL Normal [facility] Comment on above: Performed By: #### E TH #### [facility] [address] [place] [address] Dr. Debra Blake PROF CHEM 8 (BAS METB)on Anion gap [Moles/Vol] 14.8 mmol/L Normal [facility] Comment on above: Performed By: #### H GARY, CMP #### [facility] [address] [place] [address] Dr. Debra Blake Calcium [Mass/Vol] 7.6 mg/dL Critically low 8.5-10.1 [facility] Comment on above: Performed By: #### H GARY, CMP #### [facility] [address] [place] [address] Dr. Debra Blake Chloride [Moles/Vol] 93 mmol/L Critically low 98-107 [facility] Comment on above: Performed By: #### H GARY, CMP #### [facility] [address] [place] [address] Dr. Debra Blake CO2 [Moles/Vol] 30.6 mmol/L Normal 21.0-32.0 [facility] Comment on above: Performed By: #### H GARY, CMP #### [facility] [address] [place] [address] Dr. Debra Blake Creatinine [Mass/Vol] 2.27 mg/dL Critically high 0.55-1.02 [facility] Comment on above: Performed By: #### H STROPN, CMP #### [facility] [address] [place] [address] [address] Debra Blake EGFR-AF SAMOAN 27 mL/min/1.73m2 Critically low >=60 [facility] Comment on above: Performed By: #### H STROPN, CMP #### [facility] [address] [place] [address] [address] Debra Blake EGFR-NON AF SAMOAN 22 mL/min/1.73m2 Critically low >=60 [facility] Comment on above: Performed By: #### H STROPN, CMP #### [facility] [address] [place] [address] [address] Debra Blake Glucose [Mass/Vol] 114 mg/dL Critically high 74-106 [facility] Comment on above: Performed By: #### H STROPN, CMP #### [facility] [address] [place] [address] [address] Debra Blake Potassium [Moles/Vol] 3.4 mmol/L Critically low 3.5-5.1 [facility] Comment on above: Performed By: #### H STROPN, CMP #### [facility] [address] [place] [address] Dr. Debra Blake Sodium [Moles/Vol] 135 mmol/L Critically low 136-145 [facility] Comment on above: Performed By: #### H STROPN, CMP #### [facility] [address] [place] [address] [address] Debra Blake Urea nitrogen [Mass/Vol] 20.0 mg/dL Critically high 7.0-18 .0 [facility] Comment on above: Performed By: #### H STROPN, CMP #### [facility] [address] [place] [address] [address] Debra Blake Urea nitrogen/Creatinine [Mass ratio] 8.8 mg/mg Normal [facility] Comment on above: Performed By: #### H STROPN, CMP #### [facility] [address] [place], [place] [address] Dr. Debra Blake TROPONIN, HIGH SENSITIVITYon 12-19-2021 HSTROP 16.7 pg/mL Normal 4.0-51.3 [facility] Comment on above: Result Comment: CUT- OFF POINTS HAVE BEEN ESTABLISHED BASED ON THE FOURTH UNIVERSAL DEFINITIONS OF MYOCARDIAL INFARCTION. THE UPPER REFERENCE LIMIT (URL) OF TROPONIN, DEFINED THE 99TH PERCENTILE OF cTnI DISTRIBUTION IN A REFERENCE POPULATION, HAS BEEN CONFIRMED THE DECISION THRESHOLD FOR [place] DIAGNOSIS. Performed By: #### H STROPN #### [facility] [address] [place], [place] [address] Dr. Debra Blake XR CHEST 1 Von 12-19-2021 XR CHEST 1 V EXAMINATION: XR CHES T 1 V HISTORY: Asthenia COMPARISON: XR chest 12/03/2021 FINDINGS: LUNGS: Trace amount stranding within right lung base and along the lower left lateral heart margin. Blunting of left lateral cross phrenic angle. VASCULATURE: No increased pulmonary vasculature. PLEURA: Appearance of right lateral pleural thickening. Possible small left pleural effusion. No pneumothorax. CARDIAC: No cardiomegaly or cardiac silhouette abnormality. MEDIASTINUM: No visible mass or adenopathy. BONES: No fracture or visible bone lesion. OTHER: Negative. IMPRESSION: 1. Mild bibasilar infiltrates, left greater than right, versus atelectasis; new since prior study. 2. Suspect small left pleural effusion. 3. Interval development of lateral right pleural thickening versus soft tissue artifact from positioning of right arm. Artifact is favored, but loculated pleural fluid cannot be excluded. Follow-up chest x-ray recommended. Electronically authenticated by: DENISE MESSER Date: 2021-12-19 15:57 Normal [facility] Consultation Noteon 12-16-19 22 Consultation Note [id number]:127 Normal [facility] RAD - CT Reporton 12-15-2021 RAD - CT Report [id number]:127 Normal [facility] Basic Metabolic Panelon Anion gap [Moles/Vol] Not performed Normal 6.0-15.0 [facility] Comment on above: Performed By: #### V ITB1 #### [facility] , #### PAB, [id number], A1C WTH eA #### [facility] [address] Calcium [Mass/Vol] 9.0 mg/dL Normal 8.2-10.[address] [facility] Comment on above: Performed By: #### V ITB1 #### [facility] , #### PAB, [id number], A1C WTH eA #### [facility] [address] [place] [address] [place] Chloride [Moles/Vol] 104 mmol/L Normal 95-114 [facility] Comment on above: Performed By: #### V ITB1 #### [facility] , #### PAB, [id number], A1C WTH eA #### [facility] [address] [place] [address] CO2 [Moles/Vol] 21.1 mmol/L Low 22.0-30.0 [facility] Comment on above: Performed By: #### V ITB1 #### [facility] , #### PAB, [id number], A1C WTH eA #### [facility] [address] [place] [address] Creatinine [Mass/Vol] 1.84 mg/dL High 0.44-1.03 [facility] Comment on above: Performed By: #### V ITB1 #### [facility] , #### PAB, [id number], A1C WTH eA #### [facility] [address] [place] [address] [place] Creatinine Clr Calc Pharmacy 36.70 [facility] Comment on above: Performed By: #### V ITB1 #### [facility] , #### PAB, [id number], A1C WTH eA #### [address] Estimated GFR ( Cheri 34 Normal [facility] Comment on above: Result Comment: GFR estimated reference range: According to KDOQI guidelines, <60 ml/min/1.73m2 is sufficient to diagnose a patient with chronic kidney disease. Performed By: #### V ITB1 #### [facility] , #### PAB, [id number], A1C WTH eA #### [address] Estimated GFR (Non- Am 28 [facility] Comment on above: Performed By: #### V ITB1 #### [facility] , #### PAB, [id number], A1C WTH eA #### [address] Glucose [Mass/Vol] 137 mg/dL High 70-[address] [facility] Comment on above: Result Comment: Barton Glucose Reference Range is dependent on time and content of last meal. Glucose of more than 200 mg/dL in a nonstressed, ambulatory subject supports the diagnosis of Diabetes Mellitus. ADA recommended reference range Performed By: #### V ITB1 #### [facility] , #### PAB, [id number], A1C WTH eA #### [address] Potassium Normal 3.5-5.1 [facility] Comment on above: Result Comment: Spec imen hemolyzed, redraw requested Performed By: #### V ITB1 #### [facility] , #### PAB, [id number], A1C WTH eA #### [place] [address] [place] Sodium [Moles/Vol] 131 mmol/L Low 136-[address] [facility] Comment on above: Performed By: #### V ITB1 #### [facility] , #### PAB, [id number], A1C WTH eA #### [facility] [address] [place] [id number] [place] Urea nitrogen [Mass/Vol] 21 mg/dL Normal 9-23 [facility] Comment on above: Performed By: #### V ITB1 #### [facility] , #### PAB, [id number], A1C WT eA #### [facility] [address] [place] [address] [place] Basophils Auto (Bld) [#/Vol] Ordered By: Hong Mcintosh on 12-10-2021 Basophils (Bld) [#/Vol] 0.1 10*3/uL 0.0-0.2 [facility] Basophils/100 WBC Auto (Bld) Ordered By: Hong Mcintosh on 12-10-2021 Basophils/100 WBC (Bld) 0.9 % . [facility] Blood hemoglobin measurement (mass/volume)Ordered By: Hong Mcintosh on 12-10-2021 Hemoglobin (Bld) [Mass/Vol] 7.5 g/dL 11.8-15.4 [facility] Blood leukocytes automated c ount (number/volume)Ordered By: Hong Mcintosh on 12-10-2021 WBC (Bld) [#/Vol] 6.3 10*3/uL 4.5-11.[address] [facility] Complete Blood Count Auto Di ffon 12-10-2021 Basophils (Bld) [#/Vol] 0.1 10*3/uL Normal 0.0-0.2 [facility] Comment on above: Result Comment: PERF ORMED BY: [facility] [address] [place] [address] PATHOLOGIST TRAFFIC I MANAGER BRITTNY SELLERS M.D. Performed By: #### V ITB1 #### [facility] , #### PAB, [id number], A1C WTH eA #### [facility] [address] [place] [address] [place] Basophils/100 WBC (Bld) 0.9 % Normal . [facility] Comment on above: Performed By: #### V ITB1 #### [facility] , #### PAB, [id number], A1C WTH eA #### [address] Eosinophils (Bld) [#/Vol] 0.2 10*3/uL Normal 0.0-0.45 [facility] Comment on above: Performed By: #### V ITB1 #### [facility] , #### PAB, [id number], A1C WTH eA #### [address] Eosinophils/100 WBC (Bld) 3.5 % Normal . [facility] Comment on above: Performed By: #### V ITB1 #### [facility] , #### PAB, [id number], A1C WTH eA #### [address] Erythrocyte distribution width (RBC) [Ratio] 16.3 % High 11.9-15.3 [facility] Comment on above: Performed By: #### V ITB1 #### [facility] , #### PAB, [id number], A1C WTH eA #### [address] Hematocrit (Bld) [Volume fraction] 22.8 % Low 34.0-46.4 [facility] Comment on above: Performed By: #### V ITB1 #### [facility] , #### PAB, [id number], A1C WTH eA #### [address] Hemoglobin (Bld) [Mass/Vol] 7.5 g/dL Low 11.8-15.4 [facility] Comment on above: Performed By: #### V ITB1 #### [facility] , #### PAB, [id number], A1C WTH eA #### [address] Lymphocytes (Bld) [#/Vol] 1.4 10*3/uL Normal 1.00-4.8 [facility] Comment on above: Performed By: #### V ITB1 #### [facility] , #### PAB, [id number], A1C WTH eA #### [place] [address] [place] Lymphocytes/100 WBC (Bld) 21.7 % Normal . [facility] Comment on above: Performed By: #### V ITB1 #### [facility] , #### PAB, [id number], A1C WTH eA #### [address] MCH (RBC) [Entitic mass] 34.3 pg Normal 24.7-34.3 [facility] Comment on above: Performed By: #### V ITB1 #### [facility] , #### PAB, [id number], A1C WTH eA #### [address] MCV (RBC) [Entitic vol] 103.8 fL High 80-100 [facility] Comment on above: Performed By: #### V ITB1 #### [facility] , #### PAB, [id number], A1C WTH eA #### [address] Mean Corpuscular HGB Conc 33.0 g/dL Normal 32.0-35.0 [facility] Comment on above: Performed By: #### V ITB1 #### [facility] , #### PAB, [id number], A1C WTH eA #### [address] Monocytes (Bld) [#/Vol] 0.7 10*3/uL Normal 0.0-0.8 [facility] Comment on above: Performed By: #### V ITB1 #### [facility] , #### PAB, [id number], A1C WTH eA #### [facility] [address] [place] [address] [place] Monocytes/100 WBC (Bld) 11.2 % Normal . [facility] Comment on above: Performed By: #### V ITB1 #### [facility] , #### PAB, [id number], A1C WTH eA #### [facility] [address] [place] [address] [place] Neutrophils (Bld) [#/Vol] 3.9 10*3/uL Normal 1.8-7.7 [facility] Comment on above: Performed By: #### V ITB1 #### [facility] , #### PAB, [id number], A1C WTH eA #### [facility] [address] [place] [address] [place] Neutrophils/100 WBC (Bld) 62.7 % Normal . [facility] Comment on above: Performed By: #### V ITB1 #### [facility] , #### PAB, [id number], A1C WTH eA #### [facility] [address] [place] [address] [place] Nucleated RBC/100 WBC (Bld) [Ratio] 0.0 % Normal 0-0.5 [facility] Comment on above: Performed By: #### V ITB1 #### [facility] , #### PAB, [id number], A1C WTH eA #### [facility] [address] [place] [address] [place] Platelet mean volume (Bld) [Entitic vol] 6.7 fL Normal 6.3-10.7 [facility] Comment on above: Performed By: #### V ITB1 #### [facility] , #### PAB, [id number], A1C WTH eA #### [facility] [address] Platelets (Bld) [#/Vol] 356 10*3/uL Normal 150-450 [facility] Comment on above: Performed By: #### V ITB1 #### [facility] , #### PAB, [id number], A1C [facility] eA #### [facility] [address] [place] [address] [place] RBC (Bld) [#/Vol] 2.20 10*6/uL Low 3.60-5.00 [facility] Comment on above: Performed By: #### V ITB1 #### [facility] , #### PAB, [id number], A1C [facility] eA #### [facility] [address] WBC (Bld) [#/Vol] 6.3 10*3/uL Normal 4.5-11.[address] [facility] Comment on above: Performed By: #### V ITB1 #### [facility] , #### PAB, [id number], A1C [facility] eA #### [facility] [address] [place] [address] Creatinine and Glomerular fi ltration rate.predicted panel (S/P/Bld)Ordered By: Hong Mcintosh on 12-10-2021 Creatinine [Mass/Vol] 1.84 mg/dL 0.44-1.03 [facility] Eosinophils Auto (Bld) [#/Vo l]Ordered By: Hong Mcintosh on 12-10-2021 Eosinophils (Bld) [#/Vol] 0.2 10*3/uL 0.0-0.45 [facility] Eosinophils/100 WBC Auto (Bl d)Ordered By: Hong Mcintosh on 12-10-2021 Eosinophils/100 WBC (Bld) 3.5 % . [facility] Erythrocyte distribution wid th Auto (RBC) [Ratio]Ordered By: Hong Mcintosh on 12-10-2021 Erythrocyte distribution width (RBC) [Ratio] 16.3 % 11.9-15.3 [facility] Estimated glomerular filtrat ion rate (GFR) non- AmericanOrdered By: Hong Mcintosh on 12-10-2021 GFR/1.73 sq M.predicted among non-blacks MDRD (S/P/Bld) [Vol rate/Area] 28 mL/Min [facility] Hematocrit Auto (Bld) [Volum e fraction]Ordered By: Hong Mcintosh on 12-10-2021 Hematocrit (Bld) [Volume fraction] 22.8 % 34.0-46.4 [facility] Laboratory - Chemistry and C hemistry - challengeOrdered By: Hong Mcintosh on 12-10-2021 Magnesium [Mass/Vol] 0.7 mg/dL 1.6-2.6 [facility] Comment on above: Results called at 0825 on 12/10/21 Laboratory - Hematology and Cell countsOrdered By: Hong Mcintosh on 12-10-2021 Nucleated RBC/100 WBC (Bld) [Ratio] 0.0 % 0-0.5 [facility] Lymphocytes Auto (Bld) [#/Vo l]Ordered By: Hong Mcintosh on 12-10-2021 Lymphocytes (Bld) [#/Vol] 1.4 10*3/uL 1.00-4.8 [facility] Lymphocytes/100 WBC Auto (Bl d)Ordered By: Hong Mcintosh on 12-10-2021 Lymphocytes/100 WBC (Bld) 21.7 % . [facility] MCH Auto (RBC) [Entitic mass ]Ordered By: Hong Mcintosh on 12-10-2021 MCH (RBC) [Entitic mass] 34.3 pg 24.7-34.3 [facility] MCHC Auto (RBC) [Mass/Vol]Or dered By: Hong Mcintosh on 12-10-2021 MCHC (RBC) [Mass/Vol] 33.0 g/dL 32.0-35.0 [facility] MCV Auto (RBC) [Entitic vol] Ordered By: Hong Mcintosh on 12-10-2021 MCV (RBC) [Entitic vol] 103.8 fL 80-100 [facility] Magnesiumon 12-10-2021 Magnesium Normal 1.6-2.6 [facility] Comment on above: Result Comment: Spec imen hemolyzed, redraw requested PERFORMED BY: [facility] [address] [place] [address] PATHOLOGIST TRAFFIC I MANAGER BRITTNY SELLERS M.D. Performed By: #### V ITB1 #### [facility] , #### PAB, [id number], A1C WTH eA #### [facility] [address] Monocytes Auto (Bld) [#/Vol] Ordered By: Hong Mcintosh on 12-10-2021 Monocytes (Bld) [#/Vol] 0.7 10*3/uL 0.0-0.8 [facility] Monocytes/100 WBC Auto (Bld) Ordered By: Hong Mcintosh on 12-10-2021 Monocytes/100 WBC (Bld) 11.2 % . [facility] Neutrophils Auto (Bld) [#/Vo l]Ordered By: Hong Mcintosh on 12-10-2021 Neutrophils (Bld) [#/Vol] 3.9 10*3/uL 1.8-7.7 [facility] Neutrophils/100 WBC Auto (Bl d)Ordered By: Hong Mcintosh on 12-10-2021 Neutrophils/100 WBC (Bld) 62.7 % . [facility] No Panel InformationOrdered By: Hong Mcintosh on 12-10-2021 Estimated GFR () 34 mL/Min [facility] Comment on above: GFR estimated refere nce range: According to KDOQI guidelines, <60 ml/min/1.73m2 is sufficient to diagnose a patient with chronic kidney disease. Pharmacy Creatinine Clearance (Chem 36.70 [facility] Platelet mean volume Auto (B ld) [Entitic vol]Ordered By: Hong Mcintosh on 12-10-2021 Platelet mean volume (Bld) [Entitic vol] 6.7 fL 6.3-10.7 [facility] Platelets Auto (Bld) [#/Vol] Ordered By: Hong Mcintosh on 12-10-2021 Platelets (Bld) [#/Vol] 356 10*3/uL 150-450 [facility] RBC Auto (Bld) [#/Vol]Ordere d By: Hong Mcintosh on 12-10-2021 RBC (Bld) [#/Vol] 2.20 10*6/uL 3.60-5.00 [facility] Redraw Magnesiumon 2 Magnesium [Mass/Vol] 0.7 mg/dL Off scale low 1.6-2.6 [facility] Comment on above: Order Comment: SPECI MEN HEMOLYZED, SPOKE TO ANGELA Result Comment: Resu lts called at 0825 on 12/10/21 PERFORMED BY: [place] [address] PATHOLOGIST TRAFFIC I MANAGER BRITTNY SELLERS M.D. Performed By: #### V ITB1 #### [facility] , #### PAB, [id number], A1C [facility] eA #### [facility] [address] [place] [address] Redraw Potassiumon 2 Potassium [Moles/Vol] 4.7 mmol/L Normal 3.5-5.1 [facility] Comment on above: Order Comment: SPECI MEN HEMOLYZED, SPOKE TO ANGELA Performed By: #### V ITB1 #### [facility] , #### PAB, [id number], A1C WT eA #### [facility] [address] [place] [address] Serum or plasma anion gap de terminationOrdered By: Hong Mcintosh on 12-10-2021 Anion gap [Moles/Vol] TNP [facility] Comment on above: Test not performed Serum or plasma calcium sigifredo urement (mass/volume)Ordered By: Hong Mcintosh on 12-10-2021 Calcium [Mass/Vol] 9.0 mg/dL 8.2-10.[address] [facility] Serum or plasma chloride matti surement (moles/volume)Ordered By: Hong Mcintosh on 12-10-2021 Chloride [Moles/Vol] 104 mmol/L 95-114 [facility] Serum or plasma glucose sigifredo urement (mass/volume)Ordered By: Hong Mcintosh on 12-10-2021 Glucose [Mass/Vol] 137 mg/dL 70-[address] [facility] Comment on above: ADA recommended refe rence range Random Glucose Reference Range is dependent on time and content of last meal. Glucose of more than 200 mg/dL in a nonstressed, ambulatory subject supports the diagnosis of Diabetes Mellitus. Serum or plasma potassium me asurement (moles/volume)Ordered By: Hong Mcintosh on 12-10-2021 Potassium [Moles/Vol] 4.7 mmol/L 3.5-5.1 [facility] Serum or plasma sodium measu rement (moles/volume)Ordered By: Hong Mcintosh on 12-10-2021 Sodium [Moles/Vol] 131 mmol/L 136-[address] [facility] Serum or plasma total carbon dioxide measurement (moles/volume)Ordered By: Hong Mcintosh on 12-10-2021 CO2 [Moles/Vol] 21.1 mmol/L 22.0-30.0 [facility] Serum or plasma urea nitroge n measurement (mass/volume)Ordered By: Hong Mcintosh on 12-10-2021 Urea nitrogen [Mass/Vol] 21 mg/dL 9-23 [facility] Anti-dsDNA(DBL)Abon 12-10-19 22 Anti-dsDNA(DBL)Ab <1 Normal 0-9 [facility] Comment on above: Result Comment: Nega tive <5 Equivocal 5 - 9 Positive >9 Performed at: [facility] [address] [id number] Fuel Operator: Sanford Mehta PhD, Phone: [phone] PERFORMED BY: [place] [address] PATHOLOGIST TRAFFIC I MANAGER BRITTNY SELLERS M.D. Performed By: #### V IT C, PETH #### [facility] , Basic Metabolic Panelon 09-0 Anion gap [Moles/Vol] 10.8 mmol/L Normal 6.0-15.0 [facility] Comment on above: Performed By: #### V ITB1 #### [facility] , #### PAB, [id number], A1C WTH eA #### [address] Calcium [Mass/Vol] 8.6 mg/dL Normal 8.2-10.[address] [facility] Comment on above: Performed By: #### V ITB1 #### [facility] , #### PAB, [id number], A1C WTH eA #### [facility] [address] [place] [address] [place] Chloride [Moles/Vol] 105 mmol/L Normal 95-114 [facility] Comment on above: Performed By: #### V ITB1 #### [facility] , #### PAB, [id number], A1C WTH eA #### [facility] [address] [place] [address] [place] CO2 [Moles/Vol] 19.9 mmol/L Low 22.0-30.0 [facility] Comment on above: Performed By: #### V ITB1 #### [facility] , #### PAB, [id number], A1C WTH eA #### [facility] [address] [place] [address] [place] Creatinine [Mass/Vol] 1.78 mg/dL High 0.44-1.03 [facility] Comment on above: Performed By: #### V ITB1 #### [facility] , #### PAB, [id number], A1C WTH eA #### [facility] [address] [place] [address] [place] Creatinine Clr Calc Pharmacy 37.94 [facility] Comment on above: Result Comment: PERF ORMED BY: [place] [address] PATHOLOGIST TRAFFIC I MANAGER BRITTNY SELLERS M.D. Performed By: #### V ITB1 #### [facility] , #### PAB, [id number], A1C WTH eA #### [place] [address] [place] Estimated GFR ( Cheri 35 [facility] Comment on above: Result Comment: GFR estimated reference range: According to KDOQI guidelines, <60 ml/min/1.73m2 is sufficient to diagnose a patient with chronic kidney disease. Performed By: #### V ITB1 #### [facility] , #### PAB, [id number], A1C WTH eA #### [address] Estimated GFR (Non- Am 29 [facility] Comment on above: Performed By: #### V ITB1 #### [facility] , #### PAB, [id number], A1C WTH eA #### [place] [address] [place] Glucose [Mass/Vol] 93 mg/dL Normal 70-[address] [facility] Comment on above: Result Comment: [place] Glucose Reference Range is dependent on time and content of last meal. Glucose of more than 200 mg/dL in a nonstressed, ambulatory subject supports the diagnosis of Diabetes Mellitus. ADA recommended reference range Performed By: #### V ITB1 #### [facility] , #### PAB, [id number], A1C WTH eA #### [place] [address] [place] Potassium [Moles/Vol] 4.7 mmol/L Normal 3.5-5.1 [facility] Comment on above: Performed By: #### V ITB1 #### [facility] , #### PAB, [id number], A1C WTH eA #### [facility] [address] [place] [address] Sodium [Moles/Vol] 131 mmol/L Low 136-[address] [facility] Comment on above: Performed By: #### V ITB1 #### [facility] , #### PAB, [id number], A1C WTH eA #### [address] Urea nitrogen [Mass/Vol] 21 mg/dL Normal 9- [facility] Comment on above: Performed By: #### V ITB1 #### [facility] , #### PAB, [id number], A1C WTH eA #### [address] Complete Blood Count Auto Di ffon 12-09-2021 Basophils (Bld) [#/Vol] 0.1 10*3/uL Normal 0.0-0.2 [facility] Comment on above: Result Comment: PERF ORMED BY: [place] [address] PATHOLOGIST TRAFFIC I MANAGER BRITTNY SELLERS M.D. Performed By: #### V ITB1 #### [facility] , #### PAB, [id number], A1C WTH eA #### [place] [address] [place] Basophils/100 WBC (Bld) 1.1 % Normal . [facility] Comment on above: Performed By: #### V ITB1 #### [facility] , #### PAB, [id number], A1C WTH eA #### [place] [address] [place] Eosinophils (Bld) [#/Vol] 0.2 10*3/uL Normal 0.0-0.45 [facility] Comment on above: Performed By: #### V ITB1 #### [facility] , #### PAB, [id number], A1C WTH eA #### [address] Eosinophils/100 WBC (Bld) 2.9 % Normal . [facility] Comment on above: Performed By: #### V ITB1 #### [facility] , #### PAB, [id number], A1C WTH eA #### [address] Erythrocyte distribution width (RBC) [Ratio] 16.4 % High 11.9-15.3 [facility] Comment on above: Performed By: #### V ITB1 #### [facility] , #### PAB, [id number], A1C WTH eA #### [address] Hematocrit (Bld) [Volume fraction] 22.2 % Low 34.0-46.4 [facility] Comment on above: Performed By: #### V ITB1 #### [facility] , #### PAB, [id number], A1C WTH eA #### [address] Lymphocytes (Bld) [#/Vol] 1.4 10*3/uL Normal 1.00-4.8 [facility] Comment on above: Performed By: #### V ITB1 #### [facility] , #### PAB, [id number], A1C WTH eA #### [place] [address] [place] Lymphocytes/100 WBC (Bld) 24.6 % Normal . [facility] Comment on above: Performed By: #### V ITB1 #### [facility] , #### PAB, [id number], A1C WTH eA #### [facility] [address] [place] [address] MCH (RBC) [Entitic mass] 33.8 pg Normal 24.7-34.3 [facility] Comment on above: Performed By: #### V ITB1 #### [facility] , #### PAB, [id number], A1C WTH eA #### [facility] [address] [place] [address] MCV (RBC) [Entitic vol] 103.0 fL High 80-100 [facility] Comment on above: Performed By: #### V ITB1 #### [facility] , #### PAB, [id number], A1C WTH eA #### [address] Mean Corpuscular HGB Conc 32.8 g/dL Normal 32.0-35.0 [facility] Comment on above: Performed By: #### V ITB1 #### [facility] , #### PAB, [id number], A1C WTH eA #### [facility] [address] [place] [address] Monocytes (Bld) [#/Vol] 0.7 10*3/uL Normal 0.0-0.8 [facility] Comment on above: Performed By: #### V ITB1 #### [facility] , #### PAB, [id number], A1C WTH eA #### [facility] [address] [place] [address] [place] Monocytes/100 WBC (Bld) 12.9 % Normal . [facility] Comment on above: Performed By: #### V ITB1 #### [facility] , #### PAB, [id number], A1C WTH eA #### [facility] [address] [place] [address] [place] Neutrophils (Bld) [#/Vol] 3.4 10*3/uL Normal 1.8-7.7 [facility] Comment on above: Performed By: #### V ITB1 #### [facility] , #### PAB, [id number], A1C WTH eA #### [facility] [address] [place] [address] Neutrophils/100 WBC (Bld) 58.5 % Normal . [facility] Comment on above: Performed By: #### V ITB1 #### [facility] , #### PAB, [id number], A1C WTH eA #### [facility] [address] [place] [address] [place] Nucleated RBC/100 WBC (Bld) [Ratio] 0.1 % Normal 0-0.5 [facility] Comment on above: Performed By: #### V ITB1 #### [facility] , #### PAB, [id number], A1C WTH eA #### [address] Platelet mean volume (Bld) [Entitic vol] 7.0 fL Normal 6.3-10.7 [facility] Comment on above: Performed By: #### V ITB1 #### [facility] , #### PAB, [id number], A1C WTH eA #### [place] [address] [place] Platelets (Bld) [#/Vol] 307 10*3/uL Normal 150-450 [facility] Comment on above: Performed By: #### V ITB1 #### [facility] , #### PAB, [id number], A1C WTH eA #### [facility] [address] [place] [address] [place] RBC (Bld) [#/Vol] 2.16 10*6/uL Low 3.60-5.00 [facility] Comment on above: Performed By: #### V ITB1 #### [facility] , #### PAB, [id number], A1C WT eA #### [facility] [address] [place] [address] WBC (Bld) [#/Vol] 5.7 10*3/uL Normal 4.5-11.[address] [facility] Comment on above: Performed By: #### V ITB1 #### [facility] , #### PAB, [id number], A1C [facility] eA #### [facility] [address] [place] [address] ECG 12 lead ECGon 12-09-2021 ECG 12 lead ECG [facility] [place] [address] [place] [address] Electrocardiograph Report Signed Patient: Juanita Redman MR#: [id number] : 1965 Acct:[id number] Age/Sex: 56 / F ADM Date: 12/04/21 Loc: Room: [address] [place] [address] Type: DIS IN Attending Dr: Hong Mcintosh DO Ordering Provider: Claude Castellanos MD Date of Service: 12/09/2105/01/319 ECG/ECG 12 lead ECG: change in heart rhythm. Copies to: Test Reason : Blood Pressure : / mmHG Vent. Rate : 079 BPM Atrial Rate : 326 BPM P-R Int : 000 ms QRS Dur : 074 ms QT Int : 370 ms P-R-T Axes : 000 062 018 degrees QTc Int : 424 ms Atrial flutter with variable AV block Abnormal ECG No previous ECGs available Confirmed by ZHEN PRATT DO ([id number]) on 12/09/2021 5:22:39 PM Referred By: Electronically Signed By:ZHEN PRATT DO Transcribed By: MUS Signed By Zhen Pratt DO 12/09 1722 Normal [facility] Hemoglobin and Hematocriton 12-09-2021 Hematocrit (Bld) [Volume fraction] 24.2 % Low 34.0-46.4 [facility] [facility] Comment on above: Result Comment: PERF ORMED BY: [place] [address] PATHOLOGIST TRAFFIC I MANAGER BRITTNY SELLERS M.D. Performed By: #### V ITB1 #### [facility] , #### PAB, [id number], A1C WTH eA #### [facility] [address] [place] [address] Hemoglobin (Bld) [Mass/Vol] 8.0 g/dL Low 11.8-15.4 [facility] Comment on above: Performed By: #### V ITB1 #### [facility] , #### PAB, [id number], A1C WTH eA #### [address] Hematocrit (Bld) [Volume fraction] 21.9 % Low 34.0-46.4 [facility] Comment on above: Result Comment: PERF ORMED BY: [place] [address] PATHOLOGIST TRAFFIC I MANAGER BRITTNY SELLERS M.D. Performed By: #### V ITB1 #### [facility] , #### PAB, [id number], A1C WTH eA #### [facility] [address] [place] [address] Hemoglobin (Bld) [Mass/Vol] 7.3 g/dL Low 11.8-15.4 [facility] Comment on above: Performed By: #### V ITB1 #### [facility] , #### PAB, [id number], A1C WTH eA #### [facility] [address] [place] [address] Serum DNA double strand anti body assay (units/volume)Ordered By: William Esposito on 12-09-2021 DNA double strand Ab Qn (S) [IU]/mL 0-9 [facility] Comment on above: Negative <5 Equivocal 5 - 9 Positive >9 Performed at: [facility] [address] [id number] Fuel Operator: Sanford Mehta PhD, Phone: [phone] Basic Metabolic Panelon 08-3 Anion gap [Moles/Vol] 10.8 mmol/L Normal 6.0-15.0 [facility] Comment on above: Performed By: #### C AION #### [facility] , #### HEPATIC, BMP, PHOS, MG, TSH3, HS TROP, CBC, LACTIC, PT, PTT #### [facility] [address] Calcium [Mass/Vol] 8.1 mg/dL Low 8.2-10.[address] [facility] Comment on above: Performed By: #### C AION #### [facility] , #### HEPATIC, BMP, PHOS, MG, TSH3, HS TROP, CBC, LACTIC, PT, PTT #### [facility] [address] Chloride [Moles/Vol] 103 mmol/L Normal 95-114 [facility] Comment on above: Performed By: #### C AION #### [facility] , #### HEPATIC, BMP, PHOS, MG, TSH3, HS TROP, CBC, LACTIC, PT, PTT #### [facility] [address] [place] [address] CO2 [Moles/Vol] 20.5 mmol/L Low 22.0-30.0 [facility] Comment on above: Performed By: #### C AION #### [facility] , #### HEPATIC, BMP, PHOS, MG, TSH3, HS TROP, CBC, LACTIC, PT, PTT #### [facility] [address] Creatinine [Mass/Vol] 1.79 mg/dL High 0.44-1.03 [facility] Comment on above: Performed By: #### C AION #### [facility] , #### HEPATIC, BMP, PHOS, MG, TSH3, HS TROP, CBC, LACTIC, PT, PTT #### [address] Creatinine Clr Calc Pharmacy 37.34 [facility] Comment on above: Result Comment: PERF ORMED BY: [place] [address] PATHOLOGIST TRAFFIC I MANAGER BRITTNY SELLERS M.D. Performed By: #### C AION #### [facility] , #### HEPATIC, BMP, PHOS, MG, TSH3, HS TROP, CBC, LACTIC, PT, PTT #### [address] Estimated GFR ( Cheri 35 [facility] Comment on above: Result Comment: GFR estimated reference range: According to KDOQI guidelines, <60 ml/min/1.73m2 is sufficient to diagnose a patient with chronic kidney disease. Performed By: #### C AION #### [facility] , #### HEPATIC, BMP, PHOS, MG, TSH3, HS TROP, CBC, LACTIC, PT, PTT #### [address] Estimated GFR (Non- Am 29 [facility] Comment on above: Performed By: #### C AION #### [facility] , #### HEPATIC, BMP, PHOS, MG, TSH3, HS TROP, CBC, LACTIC, PT, PTT #### [address] Glucose [Mass/Vol] 104 mg/dL High 70-[address] [facility] Comment on above: Result Comment: [facility] Glucose Reference Range is dependent on time and content of last meal. Glucose of more than 200 mg/dL in a nonstressed, ambulatory subject supports the diagnosis of Diabetes Mellitus. ADA recommended reference range Performed By: #### C AION #### [facility] , #### HEPATIC, BMP, PHOS, MG, TSH3, HS TROP, CBC, LACTIC, PT, PTT #### [address] [place] [address] [place] Potassium [Moles/Vol] 4.3 mmol/L Normal 3.5-5.1 [facility] Comment on above: Performed By: #### C AION #### [facility] , #### HEPATIC, BMP, PHOS, MG, TSH3, HS TROP, CBC, LACTIC, PT, PTT #### [facility] [address] [place] [address] Sodium [Moles/Vol] 130 mmol/L Low 136-[address] [facility] Comment on above: Performed By: #### C AION #### [facility] , #### HEPATIC, BMP, PHOS, MG, TSH3, HS TROP, CBC, LACTIC, PT, PTT #### [facility] [address] [place] [address] Urea nitrogen [Mass/Vol] 22 mg/dL Normal 9-23 [facility] Comment on above: Performed By: #### C AION #### [facility] , #### HEPATIC, BMP, PHOS, MG, TSH3, HS TROP, CBC, LACTIC, PT, PTT #### [facility] [address] [place] [address] CT abdomen pelvis wo conon 0 12-08-2021 CT abdomen pelvis wo con [facility] [place] [address] CT Scan Report Signed Patient: Juanita Redman MR#: [id number] : 1965 Acct:[id number] Age/Sex: 56 / F ADM Date: 12/04/21 Loc: Room: [address] [place] [address] Type: ADM IN Attending Dr: Claude Castellanos MD Copies to: MD Luis Shafer MD Ordering Provider: Luis Sams MD Date of Service: 12/08/21 CT/CT abdomen pelvis wo con: R hydronephrosis CT abdomen pelvis wo con 12/08/2021 3:46 PM SIGNS AND SYMPTOMS: Right-sided hydronephrosis, rule out obstructive uropathy, acute kidney injury TECHNIQUE: Multidetector ct axial images of the abdomen and pelvis were obtained without IV contrast. Multiplanar reformats were performed and reviewed to further define anatomy and possible pathology. CT was performed with one or more of the following dose reduction techniques: Automated exposure control, adjustment of the mA and/or kV according to patient size, or use of iterative reconstruction technique. COMPARISON: None. FINDINGS: Lower Chest: Small bilateral pleural effusions are noted. Atherosclerotic changes are noted in the coronary arteries and thoracic aorta. ABDOMEN: Liver: Within normal limits. Bile Ducts: Normal caliber. Gallbladder: No calcified gallstones. Normal caliber wall. Pancreas: Within normal limits. Spleen: Within normal limits. Adrenals: Within normal limits. Kidneys: There is a simple cyst in the left renal cortex. There is perinephric fat stranding bilaterally. There is a nonobstructing stone in the right renal collecting system. There is no evidence of hydronephrosis. Pelvis: Reproductive Organs: No pelvic masses. Ureters: Within normal limits. Bladder: There is mild thickening of the bladder wall with fat stranding in the adjacent soft tissues. Bowel: There are a few uncomplicated colonic diverticula. There is no evidence of bowel obstruction. There is a normal appendix in the right lower quadrant. Mesenteric Lymph Nodes: No enlarged mesenteric lymph nodes. Peritoneum: No ascites or free air, no fluid collection. Vessels: Atherosclerotic changes are noted in the abdominal aorta and its branches. Retroperitoneum: Within normal limits. Abdominal Wall: There is diffuse anasarca. Bones: Mild degenerative changes are noted in the sacroiliac joints. There is a remote nonunited right L2 transverse process fracture. CT/CT abdomen pelvis wo con IMPRESSION: No definite hydronephrosis. There is a nonobstructing stone in the right renal collecting system. There is perinephric fat stranding, fat stranding along the ureters, and fat stranding adjacent to the bladder suggesting cystitis with ascending urinary tract infection. Small bilateral pleural effusions are noted. There is diffuse anasarca along the abdominal wall. Impression dictated by: Unique Enciso M.D.12/08/2021 5:49 PM Dictation Location: [place] [address] Transcribed By: [facility] 12/08/21 9710 Dictated By: Unique Enciso II, MD 12/08/211741 Signed By: 12/08/21 174 Normal [facility] Complete Blood Count Auto Di ffon 12-08-2021 Basophils (Bld) [#/Vol] 0.0 10*3/uL Normal 0.0-0.2 [facility] Comment on above: Result Comment: PERF ORMED BY: [place] [address] PATHOLOGIST TRAFFIC I MANAGER BRITTNY SELLERS M.D. Performed By: #### V ITB1 #### [facility] , #### PAB, [id number], A1C WTH eA #### [facility] [address] [place] [address] [place] Basophils/100 WBC (Bld) 0.7 % Normal . [facility] Comment on above: Performed By: #### V ITB1 #### [facility] , #### PAB, [id number], A1C WTH eA #### [facility] [address] [place] [address] [place] Eosinophils (Bld) [#/Vol] 0.2 10*3/uL Normal 0.0-0.45 [facility] Comment on above: Performed By: #### V ITB1 #### [facility] , #### PAB, [id number], A1C WTH eA #### [facility] [address] [place] [address] [place] Eosinophils/100 WBC (Bld) 2.7 % Normal . [facility] Comment on above: Performed By: #### V ITB1 #### [facility] , #### PAB, [id number], A1C WTH eA #### [facility] [address] [place] [address] [place] Erythrocyte distribution width (RBC) [Ratio] 16.3 % High 11.9-15.3 [facility] Comment on above: Performed By: #### V ITB1 #### [facility] , #### PAB, [id number], A1C WTH eA #### [address] Hematocrit (Bld) [Volume fraction] 22.6 % Low 34.0-46.4 [facility] Comment on above: Performed By: #### V ITB1 #### [facility] , #### PAB, [id number], A1C WTH eA #### [address] Hemoglobin (Bld) [Mass/Vol] 7.3 g/dL Low 11.8-15.4 [facility] Comment on above: Performed By: #### V ITB1 #### [facility] , #### PAB, [id number], A1C WTH eA #### [address] Lymphocytes (Bld) [#/Vol] 1.6 10*3/uL Normal 1.00-4.8 [facility] Comment on above: Performed By: #### V ITB1 #### [facility] , #### PAB, [id number], A1C WTH eA #### [address] Lymphocytes/100 WBC (Bld) 27.7 % Normal . [facility] Comment on above: Performed By: #### V ITB1 #### [facility] , #### PAB, [id number], A1C WTH eA #### [address] MCH (RBC) [Entitic mass] 33.7 pg Normal 24.7-34.3 [facility] Comment on above: Performed By: #### V ITB1 #### [facility] , #### PAB, [id number], A1C WTH eA #### [address] MCV (RBC) [Entitic vol] 103.7 fL High 80-100 [facility] Comment on above: Performed By: #### V ITB1 #### [facility] , #### PAB, [id number], A1C WTH eA #### [facility] [address] [place] [address] Mean Corpuscular HGB Conc 32.5 g/dL Normal 32.0-35.0 [facility] Comment on above: Performed By: #### V ITB1 #### [facility] , #### PAB, [id number], A1C WTH eA #### [facility] [address] [place] [address] [place] Monocytes (Bld) [#/Vol] 0.7 10*3/uL Normal 0.0-0.8 [facility] Comment on above: Performed By: #### V ITB1 #### [facility] , #### PAB, [id number], A1C WTH eA #### [place] [address] [place] Monocytes/100 WBC (Bld) 13.1 % Normal . [facility] Comment on above: Performed By: #### V ITB1 #### [facility] , #### PAB, [id number], A1C WTH eA #### [facility] [address] [place] [address] [place] Neutrophils (Bld) [#/Vol] 3.1 10*3/uL Normal 1.8-7.7 [facility] Comment on above: Performed By: #### V ITB1 #### [facility] , #### PAB, [id number], A1C WTH eA #### [facility] [address] [place] [address] [place] Neutrophils/100 WBC (Bld) 55.8 % Normal . [facility] Comment on above: Performed By: #### V ITB1 #### [facility] , #### PAB, [id number], A1C WTH eA #### [facility] [address] [place] [address] Nucleated RBC/100 WBC (Bld) [Ratio] 0.1 % Normal 0-0.5 [facility] Comment on above: Performed By: #### V ITB1 #### [facility] , #### PAB, [id number], A1C WTH eA #### [facility] [address] [place] [address] Platelet mean volume (Bld) [Entitic vol] 7.2 fL Normal 6.3-10.7 [facility] Comment on above: Performed By: #### V ITB1 #### [facility] , #### PAB, [id number], A1C WTH eA #### [address] Platelets (Bld) [#/Vol] 282 10*3/uL Normal 150-450 [facility] Comment on above: Performed By: #### V ITB1 #### [facility] , #### PAB, [id number], A1C WTH eA #### [facility] [address] [place] [address] RBC (Bld) [#/Vol] 2.18 10*6/uL Low 3.60-5.00 [facility] Comment on above: Performed By: #### V ITB1 #### [facility] , #### PAB, [id number], A1C WTH eA #### [facility] [address] [place] [address] [place] WBC (Bld) [#/Vol] 5.6 10*3/uL Normal 4.5-11.[address] [facility] Comment on above: Performed By: #### V ITB1 #### [facility] , #### PAB, [id number], A1C WTH eA #### [facility] [address] [place] [address] [place] Hemoglobin and Hematocriton 12-08-2021 Hematocrit (Bld) [Volume fraction] 23.4 % Low 34.0-46.4 [facility] Comment on above: Result Comment: PERF ORMED BY: [place] [address] PATHOLOGIST TRAFFIC I MANAGER BRITTNY SELLERS M.D. Performed By: #### V IT C, PETH #### [facility] , Hemoglobin (Bld) [Mass/Vol] 7.8 g/dL Low 11.8-15.4 [facility] Comment on above: Performed By: #### V IT C, PETH #### [facility] , Albumin [Mass/volume] in Ser um or PlasmaOrdered By: William Esposito on 12-07-2021 Albumin [Mass/Vol] 2.6 g/dL 2.9-4.[address] [facility] Albumin/Protein.total in 24 hour Urine by ElectrophoresisOrdered By: William Esposito on 12-07-2021 Albumin Elph (24H U) [Mass fraction] 69.2 % . [facility] Basic Metabolic Panelon 11-10 Anion gap [Moles/Vol] 9.7 mmol/L Normal 6.0-15.0 [facility] Comment on above: Performed By: #### V ITB1 #### [facility] , #### PAB, [id number], A1C WTH eA #### [facility] [address] [place] [address] [place] Calcium [Mass/Vol] 7.2 mg/dL Low 8.2-10.[address] [facility] Comment on above: Performed By: #### V ITB1 #### [facility] , #### PAB, [id number], A1C WTH eA #### [facility] [address] [place] [address] [place] Chloride [Moles/Vol] 105 mmol/L Normal 95-114 [facility] Comment on above: Performed By: #### V ITB1 #### [facility] , #### PAB, [id number], A1C WTH eA #### [facility] [address] [place] [address] CO2 [Moles/Vol] 18.5 mmol/L Low 22.0-30.0 [facility] Comment on above: Performed By: #### V ITB1 #### [facility] , #### PAB, [id number], A1C WTH eA #### [facility] [address] [place] [address] Creatinine [Mass/Vol] 1.75 mg/dL High 0.44-1.03 [facility] Comment on above: Performed By: #### V ITB1 #### [facility] , #### PAB, [id number], A1C WTH eA #### [address] Creatinine Clr Calc Pharmacy 35.69 [facility] Comment on above: Result Comment: PERF ORMED BY: [place] [address] PATHOLOGIST TRAFFIC I MANAGER BRITTYN SELLERS M.D. Performed By: #### V ITB1 #### [facility] , #### PAB, [id number], A1C WTH eA #### [address] Estimated GFR ( Cheri 36 [facility] Comment on above: Result Comment: GFR estimated reference range: According to KDOQI guidelines, <60 ml/min/1.73m2 is sufficient to diagnose a patient with chronic kidney disease. Performed By: #### V ITB1 #### [facility] , #### PAB, [id number], A1C WTH eA #### [facility] [address] [place] [address] [place] Estimated GFR (Non- Am 30 [facility] Comment on above: Performed By: #### V ITB1 #### [facility] , #### PAB, [id number], A1C WTH eA #### [facility] [address] [place] [address] Glucose [Mass/Vol] 124 mg/dL High 70-[address] [facility] Comment on above: Result Comment: [facility] Glucose Reference Range is dependent on time and content of last meal. Glucose of more than 200 mg/dL in a nonstressed, ambulatory subject supports the diagnosis of Diabetes Mellitus. ADA recommended reference range Performed By: #### V ITB1 #### [facility] , #### PAB, [id number], A1C WTH eA #### [address] Potassium [Moles/Vol] 5.2 mmol/L High 3.5-5.1 [facility] Comment on above: Performed By: #### V ITB1 #### [facility] , #### PAB, [id number], A1C WTH eA #### [facility] [address] [place] [address] [place] Sodium [Moles/Vol] 128 mmol/L Low 136-[address] [facility] Comment on above: Performed By: #### V ITB1 #### [facility] , #### PAB, [id number], A1C WTH eA #### [facility] [address] [place] [address] [place] Urea nitrogen [Mass/Vol] 27 mg/dL High 9-23 [facility] Comment on above: Performed By: #### V ITB1 #### [facility] , #### PAB, [id number], A1C WTH eA #### [facility] [address] [place] [address] Complete Blood Count Auto Di ffon 12-07-2021 Basophils (Bld) [#/Vol] 0.0 10*3/uL Normal 0.0-0.2 [facility] Comment on above: Result Comment: PERF ORMED BY: [place] [address] PATHOLOGIST TRAFFIC I MANAGER BRITTNY SELLERS M.D. Performed By: #### V ITB1 #### [facility] , #### PAB, [id number], A1C WTH eA #### [place] [address] [place] Basophils/100 WBC (Bld) 0.2 % Normal . [facility] Comment on above: Performed By: #### V ITB1 #### [facility] , #### PAB, [id number], A1C WTH eA #### [address] Eosinophils (Bld) [#/Vol] 0.0 10*3/uL Normal 0.0-0.45 [facility] Comment on above: Performed By: #### V ITB1 #### [facility] , #### PAB, [id number], A1C WTH eA #### [facility] [address] [place] [address] [place] Eosinophils/100 WBC (Bld) 0.1 % Normal . [facility] Comment on above: Performed By: #### V ITB1 #### [facility] , #### PAB, [id number], A1C WTH eA #### [facility] [address] [place] [address] Erythrocyte distribution width (RBC) [Ratio] 16.8 % High 11.9-15.3 [facility] Comment on above: Performed By: #### V ITB1 #### [facility] , #### PAB, [id number], A1C WTH eA #### [facility] [address] [place] [address] Hematocrit (Bld) [Volume fraction] 23.2 % Low 34.0-46.4 [facility] Comment on above: Performed By: #### V ITB1 #### [facility] , #### PAB, [id number], A1C WTH eA #### [facility] [address] [place] [address] Hemoglobin (Bld) [Mass/Vol] 7.8 g/dL Low 11.8-15.4 [facility] Comment on above: Performed By: #### V ITB1 #### [facility] , #### PAB, [id number], A1C WTH eA #### [address] Lymphocytes (Bld) [#/Vol] 0.6 10*3/uL Low 1.00-4.8 [facility] Comment on above: Performed By: #### V ITB1 #### [facility] , #### PAB, [id number], A1C WTH eA #### [address] Lymphocytes/100 WBC (Bld) 7.8 % Normal . [facility] Comment on above: Performed By: #### V ITB1 #### [facility] , #### PAB, [id number], A1C WTH eA #### [address] MCH (RBC) [Entitic mass] 34.7 pg High 24.7-34.3 [facility] Comment on above: Performed By: #### V ITB1 #### [facility] , #### PAB, [id number], A1C WTH eA #### [facility] [address] [place] [address] MCV (RBC) [Entitic vol] 103.8 fL High 80-100 [facility] Comment on above: Performed By: #### V ITB1 #### [facility] , #### PAB, [id number], A1C WTH eA #### [facility] [address] [place] [address] Mean Corpuscular HGB Conc 33.5 g/dL Normal 32.0-35.0 [facility] Comment on above: Performed By: #### V ITB1 #### [facility] , #### PAB, [id number], A1C WTH eA #### [facility] [address] [place] [address] [place] Monocytes (Bld) [#/Vol] 0.6 10*3/uL Normal 0.0-0.8 [facility] Comment on above: Performed By: #### V ITB1 #### [facility] , #### PAB, [id number], A1C WTH eA #### [facility] [address] [place] [address] [place] Monocytes/100 WBC (Bld) 8.3 % Normal . [facility] Comment on above: Performed By: #### V ITB1 #### [facility] , #### PAB, [id number], A1C WTH eA #### [facility] [address] [place] [address] [place] Neutrophils (Bld) [#/Vol] 6.2 10*3/uL Normal 1.8-7.7 [facility] Comment on above: Performed By: #### V ITB1 #### [facility] , #### PAB, [id number], A1C WTH eA #### [facility] [address] [place] [address] [place] Neutrophils/100 WBC (Bld) 83.6 % Normal . [facility] Comment on above: Performed By: #### V ITB1 #### [facility] , #### PAB, [id number], A1C WTH eA #### [facility] [address] [place] [address] [place] Nucleated RBC/100 WBC (Bld) [Ratio] 0.1 % Normal 0-0.5 [facility] Comment on above: Performed By: #### V ITB1 #### [facility] , #### PAB, [id number], A1C WTH eA #### [facility] [address] Platelet mean volume (Bld) [Entitic vol] 7.6 fL Normal 6.3-10.7 [facility] Comment on above: Performed By: #### V ITB1 #### [facility] , #### PAB, [id number], A1C WTH eA #### [facility] [address] [place] [address] Platelets (Bld) [#/Vol] 243 10*3/uL Normal 150-450 [facility] Comment on above: Performed By: #### V ITB1 #### [facility] , #### PAB, [id number], A1C WTH eA #### [place] [address] [place] RBC (Bld) [#/Vol] 2.23 10*6/uL Low 3.60-5.00 [facility] Comment on above: Performed By: #### V ITB1 #### [facility] , #### PAB, [id number], A1C WTH eA #### [address] WBC (Bld) [#/Vol] 7.5 10*3/uL Normal 4.5-11.[address] [facility] Comment on above: Performed By: #### V ITB1 #### [facility] , #### PAB, [id number], A1C WTH eA #### [facility] [address] [place] [address] Creatinine [Mass/volume] in UrineOrdered By: William Esposito on 12-07-2021 Creatinine (U) [Mass/Vol] 153.0 mg/dL [facility] Comment on above: No reference range e stablished ECG 12 lead ECGon 08-30-2022 ECG 12 lead ECG [facility] Main [place] [address] [place] [address] Electrocardiograph Report Signed Patient: Juanita Redman MR#: [id number] : 1965 Acct:[id number] Age/Sex: 56 / F ADM Date: 12/04/21 Loc: Room: [address] [place] [address] Type: DIS IN Attending Dr: Hong Mcintosh DO Ordering Provider: Hong Mcintosh DO Date of Service: 12/07/21 ECG/ECG 12 lead ECG: s/p new a fib Copies to: Test Reason : Blood Pressure : / mmHG Vent. Rate : 075 BPM Atrial Rate : 075 BPM P-R Int : 164 ms QRS Dur : 064 ms QT Int : 412 ms P-R-T Axes : 057 029 020 degrees QTc Int : 460 ms Normal sinus rhythm Possible Left atrial enlargement Nonspecific ST abnormality Abnormal ECG When compared with ECG of 06-DEC-2021 16:34, Sinus rhythm has replaced Atrial flutter Confirmed by ZHEN PRATT DO ([id number]) on 12/07/2021 4:33:52 PM Referred By: Electronically Signed By:ZHEN PRATT DO Transcribed By: MUS Signed By Zhen Pratt DO 12/07 1633 Normal [facility] Free K+L LT Chains, Qn, Son 12-07-2021 Free [place] Light Chains, S 81.9 mg/L High 3.3-19.4 [facility] Comment on above: Performed By: #### V ITB1 #### [facility] , #### PAB, [id number], A1C WT eA #### [facility] [address] [place] [address] [place] Free [place] Light Chains, S 62.3 mg/L High 5.7-26.3 [facility] Comment on above: Performed By: #### V ITB1 #### [facility] , #### PAB, [id number], A1C WT eA #### [facility] [address] [place] [address] [place]/Lambda Ratio, S 1.31 Normal 0.26-1.65 [facility] Comment on above: Result Comment: Perf ormed at: CB - [facility] [address] [id number] Fuel Operator: Sanford Mehta PhD, Phone: [phone] PERFORMED BY: [place] [address] PATHOLOGIST TRAFFIC I MANAGER BRITTNY SELLERS M.D. Performed By: #### V ITB1 #### [facility] , #### PAB, [id number], A1C WTH eA #### [facility] [address] [place] [address] Gamma globulin/Protein.total in 24 hour Urine by ElectrophoresisOrdered By: William Esposito on 12-07-2021 Gamma globulin Elph (24H U) [Mass fraction] 8.2 % . [facility] IgA [Mass/volume] in Serum o r PlasmaOrdered By: William Vaibhav on 12-07-2021 IgA [Mass/Vol] 357 mg/dL 87-352 [facility] IgG [Mass/volume] in Serum o r PlasmaOrdered By: William Vaibhav on 12-07-2021 IgG [Mass/Vol] 794 mg/dL 586-1602 [facility] IgM [Mass/volume] in Serum o r PlasmaOrdered By: William Vaibhav on 12-07-2021 IgM [Mass/Vol] 109 mg/dL 26-217 [facility] Comment on above: Performed at: [employer] [facility] [address] [id number] Fuel Operator: Sanford Mehta PhD, Phone: [phone] Immunofixation for UrineOrde red By: William Esposito on 12-07-2021 Interpretation Immunofixation (U) [Interp] Comment: . [facility] Comment on above: Presence of monoclon al protein is unclear at this time. Suggest repeat in 3 to 6 months if clinically indicated. Performed at: [employer] - [facility] [address] [id number] Fuel Operator: Sanford Mehta PhD, Phone: [phone] Immunofixation, (MOI), Urine on 12-07-2021 Immunofixation, (MOI), Urine Comment: Normal . [facility] Comment on above: Result Comment: Pres ence of monoclonal protein is unclear at this time. Suggest repeat in 3 to 6 months if clinically indicated. Performed at: - [facility] [address] [place] [id number] Fuel Operator: Sanford Mehta PhD, Phone: [phone] PERFORMED BY: [place] [address] PATHOLOGIST TRAFFIC I MANAGER BRITTNY SELLERS M.D. Performed By: #### V ITB1 #### [facility] , #### PAB, [id number], A1C WTH eA #### [place] [address] [place] Immunofixation,Serumon 12-07 Immunofixation, Serum Normal . [facility] Comment on above: Result Comment: No m onoclonality detected. Performed By: #### V ITB1 #### [facility] , #### PAB, [id number], A1C WTH eA #### [address] Immunoglobulin A, Serum 357 mg/dL High 87-352 [facility] Comment on above: Performed By: #### V ITB1 #### [facility] , #### PAB, [id number], A1C WTH eA #### [facility] [address] [place] [address] [place] Immunoglobulin G 794 mg/dL Normal 586-1602 [facility] Comment on above: Performed By: #### V ITB1 #### [facility] , #### PAB, [id number], A1C WTH eA #### [address] Immunoglobulin M, Serum 109 mg/dL Normal 26-217 [facility] Comment on above: Result Comment: Perf ormed at: [facility] [address] [id number] Fuel Operator: Sanford Mehta PhD, Phone: [phone] Performed By: #### V ITB1 #### [facility] , #### PAB, [id number], A1C WTH eA #### [facility] [address] Immunoglobulin light chains. kappa.free [Mass/volume] in SerumOrdered By: William Vaibhav on 12-07-2021 Immunoglobulin light chains.kappa.free (S) [Mass/Vol] 81.9 mg/L 3.3-19.4 [facility] Immunoglobulin light chains. kappa.free/Immunoglobulin light chains.lambda.free [MassOrdered By: William Vaibhav on 12-07-2021 Immunoglobulin light chains.kappa.free/Immuno globulin light chains.lambda.free (S) [Mass ratio] 1.31 0.26-1.65 [facility] Comment on above: Performed at: [employer] [address] [id number] Fuel Operator: Sanford Mehta PhD, Phone: [phone] Immunoglobulin light chains. lambda.free [Mass/volume] in Serum or PlasmaOrdered By: William Vaibhav on 12-07-2021 Immunoglobulin light chains.lambda.free [Mass/Vol] 62.3 mg/L 5.7-26.3 [facility] No Panel InformationOrdered By: William Vaibhav on 12-07-2021 Urine Random Prot Electrophor Note See comment . [facility] Comment on above: Protein electrophore sis scan will follow via computer, mail, or time cycle operator delivery. Performed at: [facility] [id number] Fuel Operator: Sanford Mehta PhD, Phone: [phone] Protein Electrophoresis M-Alexei Not observed g/dL Not Observed [facility] Protein Electrophoresis Note See comment . [facility] Comment on above: Protein electrophore sis scan will follow via computer, mail, or time cycle operator delivery. Performed at: - [facility], [place], [place] [id number] Fuel Operator: Sanford Mehta PhD, Phone: [phone] Serum Immunofixation See comment . [facility] Comment on above: No monoclonality det ected. Protein Creat Ratio Ur Rando mon 12-07-2021 Creatinine, Urine (Random) 153.0 mg/dL Normal [facility] Comment on above: Result Comment: No r eference range established Performed By: #### V IT C, PETH #### [facility] , Protein (U) [Mass/Vol] 55 mg/dL High 0-9 [facility] Comment on above: Performed By: #### V IT C, PETH #### [facility] , Urine Protein/Creatinine Ratio 359 mg/g{Cre} High 0-200 [facility] Comment on above: Result Comment: PERF ORMED BY: [facility] [address] [place] [address] PATHOLOGIST TRAFFIC I MANAGER BRITTNY SELLERS M.D. Performed By: #### V IT C, PETH #### [facility] , Protein Electro, Random Urin rain 12-07-2021 Albumin, Urine 69.2 % Normal . [facility] Comment on above: Performed By: #### V IT C, PETH #### [facility] , Xrxfw-5-Oqyqxitg, Urine 3.1 % Normal . [facility] Comment on above: Performed By: #### V IT C, PETH #### [facility] , Uyawi-9-Nhwgxrsf, Urine 6.0 % Normal . [facility] Comment on above: Performed By: #### V IT C, PETH #### [facility] , Beta Globulin, Urine 13.5 % Normal . [facility] Comment on above: Performed By: #### V IT C, PETH #### [facility] , Gamma Globulin, Urine 8.2 % Normal . [facility] Comment on above: Performed By: #### V IT C, PETH #### [facility] , M-Alexei % Not Observed Normal Not Observed [facility] Comment on above: Performed By: #### V IT C, PETH #### [facility] , Please Note: Normal . [facility] Comment on above: Result Comment: Prot ein electrophoresis scan will follow via computer, mail, or time cycle operator delivery. Performed at: [facility] [address] [id number] Fuel Operator: Sanford Mehta PhD, Phone: [phone] PERFORMED BY: [place] [address] PATHOLOGIST TRAFFIC I MANAGER BRITTNY SELLERS M.D. Performed By: #### V IT C, PETH #### [facility] , Protein (U) [Mass/Vol] 51.3 mg/dL Normal Not Estab. [facility] Comment on above: Performed By: #### V IT C, PETH #### [facility] , Protein Electrophoresis, Ser umon 12-07-2021 Albumin [Mass/Vol] 2.6 g/dL Low 2.9-4.[address] [facility] Comment on above: Performed By: #### V ITB1 #### [facility] , #### PAB, [id number], A1C WTH eA #### [facility] [address] [place] [address] Albumin/Globulin [Mass ratio] 1.0 {ratio} Normal 0.7-1.7 [facility] Comment on above: Performed By: #### V ITB1 #### [facility] , #### PAB, [id number], A1C WTH eA #### [facility] [address] [place] [address] [place] Vwjdu-5-Tgdjvfma 0.3 g/dL Normal 0.0-0.4 [facility] Comment on above: Performed By: #### V ITB1 #### [facility] , #### PAB, [id number], A1C WTH eA #### [facility] [address] [place] [address] Dshpt-2-Jvptxono 0.7 g/dL Normal 0.4-1.0 [facility] Comment on above: Performed By: #### V ITB1 #### [facility] , #### PAB, [id number], A1C WTH eA #### [facility] [address] [place] [address] Beta Globulin 0.7 g/dL Normal 0.7-1.3 [facility] Comment on above: Performed By: #### V ITB1 #### [facility] , #### PAB, [id number], A1C WTH eA #### [address] Gamma Globulin 0.9 g/dL Normal 0.4-1.8 [facility] Comment on above: Performed By: #### V ITB1 #### [facility] , #### PAB, [id number], A1C WTH eA #### [facility] [address] [place] [address] [place] Globulin (S) [Mass/Vol] 2.6 g/dL Normal 2.2-3.9 [facility] Comment on above: Performed By: #### V ITB1 #### [facility] , #### PAB, [id number], A1C WTH eA #### [facility] [address] [place] [address] M-Alexei Not Observed Normal Not Observed [facility] Comment on above: Performed By: #### V ITB1 #### [facility] , #### PAB, [id number], A1C WTH eA #### [facility] [address] Protein [Mass/Vol] 5.2 g/dL Low 6.0-8.[address] [facility] Comment on above: Performed By: #### V ITB1 #### [facility] , #### PAB, [id number], A1C WTH eA #### [facility] [address] [place] [address] SPE-Note Normal . [facility] Comment on above: Result Comment: Prot ein electrophoresis scan will follow via computer, mail, or time cycle operator delivery. Performed at: [facility] [address] [id number] Fuel Operator: Sanford Mehta PhD, Phone: [phone] Performed By: #### V ITB1 #### [facility] , #### PAB, [id number], [address] eA #### [address] Protein [Mass/volume] in Ser um or PlasmaOrdered By: William Vaibhav on 12-07-2021 Protein [Mass/Vol] 5.2 g/dL 6.0-8.[address] [facility] Protein [Mass/volume] in Uri neOrdered By: William Vaibhav on 12-07-2021 Protein (U) [Mass/Vol] 51.3 mg/dL Not Estab. [facility] Protein.monoclonal/Protein.t otal in 24 hour Urine by ElectrophoresisOrdered By: William Dahlr on 12-07-2021 Protein.monoclonal Elph (24H U) [Mass fraction] Not observed % Not Observed [facility] Serum globulin measurement ( mass/volume)Ordered By: William Dahlr on 12-07-2021 Globulin (S) [Mass/Vol] 2.6 g/dL 2.2-3.9 [facility] Serum or plasma albumin/glob ulin mass ratioOrdered By: William Dahlr on 12-07-2021 Albumin/Globulin [Mass ratio] 1.0 {ratio} 0.7-1.7 [facility] Serum or plasma alpha 1 glob ulin measurement by electrophoresis (mass/volume)Ordered By: William Vaibhav on 12-07-2021 Alpha 1 globulin Elph [Mass/Vol] 0.3 g/dL 0.0-0.4 [facility] Serum or plasma alpha 2 glob ulin measurement by electrophoresis (mass/volume)Ordered By: William Vaibhav on 12-07-2021 Alpha 2 globulin Elph [Mass/Vol] 0.7 g/dL 0.4-1.0 [facility] Serum or plasma beta globuli n measurement by electrophoresis (mass/volume)Ordered By: William Vaibhva on 12-07-2021 Beta globulin Elph [Mass/Vol] 0.7 g/dL 0.7-1.3 [facility] Serum or plasma gamma globul in measurement by electrophoresis (mass/volume)Ordered By: William Vaibhav on 12-07-2021 Gamma globulin Elph [Mass/Vol] 0.9 g/dL 0.4-1.8 [facility] Troponin I High Sensitivityo n 12-07-2021 Troponin I High Sensitivity 7 pg/mL Normal 0-15 [facility] Comment on above: Result Comment: PERF ORMED BY: [place] [address] PATHOLOGIST TRAFFIC I MANAGER BRITTNY SELLERS M.D. Performed By: #### V IT C, PET #### [facility] , Troponin I.cardiac [Mass/vol ume] in Serum or Plasma by High sensitivity methodOrdered By: Hong Mcintosh on 12-07-2021 Troponin I.cardiac High sensitivity method [Mass/Vol] 7 pg/mL 0-15 [facility] US renal BIon 12-07-2021 US renal BI [facility] [place] [address] Ultrasound Report Signed Patient: Juanita Redman MR#: [id number] : 1965 Acct:[id number] Age/Sex: 56 / F ADM Date: 12/04/21 Loc: Room: 9J1271-4 Type: ADM IN Attending Dr: Claude Castellanos MD Ordering Provider: William Esposito MD Date of Service: 12/07/21 US/US renal BI: DASHAWN on CKD Copies to: MD Claude Tijerina MD US renal BI 12/07/2021 8:41 AM SIGNS AND SYMPTOMS: DASHAWN on CKD COMPARISON: None. FINDINGS: Right kidney measures 11.9 x 4.6 x 5.1 cm . There is hydronephrosis. This is of uncertain etiology. There is no evidence of mass. Left kidney measures 11.3 x 4.6 x 4.6 cm . There is no hydronephrosis. There is a cyst at superior pole measuring up to 4.3 cm in greatest dimension. The urinary bladder is morphologically normal. No free fluid is seen in the pelvis. The bladder has an estimated volume of 34 mL. US/US renal BI IMPRESSION: There is right-sided hydronephrosis which is of uncertain etiology. There is a cyst which appears be relatively simple in nature along the left kidney measuring up to 4.3 cm in greatest dimension. No evidence of mass. Impression dictated by: Unique Enciso M.D.12/07/2021 4:27 PM Dictation Location: [place] [address] Tech: Sel[facility] Transcribed By: JAMEL 12/07/21 162 Dictated By: Unique Enciso II, MD 12/07/21 1624 Signed By: 12/07/211626 Normal [facility] Urine alpha 1 globulin/total protein by electrophoresisOrdered By: William Esposito on 12-07-2021 Alpha 1 globulin Elph (U) [Mass fraction] 3.1 % . [facility] Urine alpha 2 globulin/total protein ratio by electrophoresisOrdered By: William Esposito on 12-07-2021 Alpha 2 globulin Elph (U) [Mass fraction] 6.0 % . [facility] Urine beta globulin measurem ent by electrophoresis (mass/volume)Ordered By: William Esposito on 12-07-2021 Beta globulin Elph (U) [Mass/Vol] 13.5 % . [facility] Urine culture routineOrdered By: Hong Mcintosh on 12-07-2021 Bacteria identified Cx Nom (U) Klebsiella oxytoca [facility] Urine protein/creatinine rat ioOrdered By: William Esposito on 12-07-2021 Protein/Creatinine (U) [Ratio] 359 mg/g{Cre} 0-200 [facility] MATY Antinuclear Antibodieson 12-06-2021 Antinuclear Abs, IFA Positive Critically abnormal . [facility] Comment on above: Result Comment: Nega tive <1:80 Borderline 1:80 Positive >1:80 Performed By: #### V ITB1 #### [facility] , #### PAB, [id number], A1C WTH eA #### [facility] [address] Note 1 Normal . [facility] Comment on above: Result Comment: For more information about Hep-2 cell patterns use ANApatterns.org, the official website for the International Consensus on Antinuclear Antibody (MATY) Patterns (ICAP). A positive MATY result may occur in healthy individuals (low titer) or be associated with a variety of diseases. See interpretation chart which is not all inclusive: Pattern Antigen Detected Suggested Disease Association Homogeneous DNA(ds,ss), SLE - High titers Nucleosomes, Histones Drug-induced SLE Speckled Sm, RN INFUSION, SCL-70, SLE,MCTD,PSS (diffuse form), SS-A/SS-B Sjogrens Nucleolar SCL-70, PM-1/SCL High titers Scleroderma, PM/DM Centromere Centromere PSS (limited form) w/Crest syndrome variable Nuclear Dot Sp100,j31-uguvjg Primary Biliary Cirrhosis Nuclear GP210, Primary Biliary Cirrhosis Membrane chun A,B,C Performed at: - [facility] [id number] Fuel Operator: Sanford Mehta PhD, Phone: [phone] Performed By: #### V ITB1 #### [facility] , #### PAB, [id number], A1C WT eA #### [facility] [address] [place] [id number] [place] Speckled Pattern 1:80 Normal . [facility] Comment on above: Result Comment: ICAP nomenclature: AC-2,4,5,29 Performed By: #### V ITB1 #### [facility] , #### PAB, [id number], A1C WTH eA #### [facility] [address] [place] [address] [place] Albumin Levelon 12-06-2021 Albumin [Mass/Vol] 3.0 g/dL Low 3.2-5.[address] [facility] Comment on above: Order Comment: Comme nt adds on Result Comment: PERF ORMED BY: [place] [address] PATHOLOGIST TRAFFIC I MANAGER BRITTNY SELLERS M.D. Performed By: #### V ITB1 #### [facility] , #### PAB, [id number], A1C WTH eA #### [address] Albumin [Mass/volume] in Ser um or PlasmaOrdered By: William Esposito on 12-06-2021 Albumin [Mass/Vol] 3.0 g/dL 3.2-5.[address] [facility] Basic Metabolic Panelon 11-09 Anion gap [Moles/Vol] 14.8 mmol/L Normal 6.0-15.0 [facility] Comment on above: Performed By: #### V ITB1 #### [facility] , #### PAB, [id number], A1C WTH eA #### [facility] [address] [place] [address] Calcium [Mass/Vol] 7.0 mg/dL Low 8.2-10.[address] [facility] Comment on above: Performed By: #### V ITB1 #### [facility] , #### PAB, [id number], A1C WTH eA #### [facility] [address] [place] [address] [place] Chloride [Moles/Vol] 100 mmol/L Normal 95-114 [facility] Comment on above: Performed By: #### V ITB1 #### [facility] , #### PAB, [id number], A1C WTH eA #### [facility] [address] [place] [address] [place] CO2 [Moles/Vol] 16.7 mmol/L Low 22.0-30.0 [facility] Comment on above: Performed By: #### V ITB1 #### [facility] , #### PAB, [id number], A1C WTH eA #### [facility] [address] [place] [address] [place] Creatinine [Mass/Vol] 1.82 mg/dL High 0.44-1.03 [facility] Comment on above: Performed By: #### V ITB1 #### [facility] , #### PAB, [id number], A1C WTH eA #### [facility] [address] [place] [address] [place] Creatinine Clr Calc Pharmacy 34.32 [facility] Comment on above: Performed By: #### V ITB1 #### [facility] , #### PAB, [id number], A1C WTH eA #### [facility] [address] [place] [address] [place] Estimated GFR ( Cheri 35 [facility] Comment on above: Result Comment: GFR estimated reference range: According to KDOQI guidelines, <60 ml/min/1.73m2 is sufficient to diagnose a patient with chronic kidney disease. Performed By: #### V ITB1 #### [facility] , #### PAB, [id number], A1C WTH eA #### [facility] [address] [place] [address] [place] Estimated GFR (Non- Am 29 [facility] Comment on above: Performed By: #### V ITB1 #### [facility] , #### PAB, [id number], A1C WTH eA #### [facility] [address] [place] [id number] [place] Glucose [Mass/Vol] 140 mg/dL High 70-[address] [facility] Comment on above: Result Comment: Zuly feliciano Glucose Reference Range is dependent on time and content of last meal. Glucose of more than 200 mg/dL in a nonstressed, ambulatory subject supports the diagnosis of Diabetes Mellitus. ADA recommended reference range Performed By: #### V ITB1 #### [facility] , #### PAB, [id number], A1C WTH eA #### [facility] [address] Potassium [Moles/Vol] 5.5 mmol/L High 3.5-5.1 [facility] Comment on above: Performed By: #### V ITB1 #### [facility] , #### PAB, [id number], A1C WTH eA #### [address] Sodium [Moles/Vol] 126 mmol/L Low 136-[address] [facility] Comment on above: Performed By: #### V ITB1 #### [facility] , #### PAB, [id number], A1C WTH eA #### [place] [address] [place] Urea nitrogen [Mass/Vol] 26 mg/dL High 9-23 [facility] Comment on above: Performed By: #### V ITB1 #### [facility] , #### PAB, [id number], A1C WTH eA #### [address] Anion gap [Moles/Vol] 13.3 mmol/L Normal 6.0-15.0 [facility] Comment on above: Performed By: #### C AION #### [facility] , #### HEPATIC, BMP, PHOS, MG, TSH3, HS TROP, CBC, LACTIC, PT, PTT #### [facility] [address] Calcium [Mass/Vol] 6.9 mg/dL Low 8.2-10.[address] [facility] Comment on above: Performed By: #### C AION #### [facility] , #### HEPATIC, BMP, PHOS, MG, TSH3, HS TROP, CBC, LACTIC, PT, PTT #### [facility] [address] Chloride [Moles/Vol] 100 mmol/L Normal 95-114 [facility] Comment on above: Performed By: #### C AION #### [facility] , #### HEPATIC, BMP, PHOS, MG, TSH3, HS TROP, CBC, LACTIC, PT, PTT #### [facility] [address] [place] [address] CO2 [Moles/Vol] 18.0 mmol/L Low 22.0-30.0 [facility] Comment on above: Performed By: #### C AION #### [facility] , #### HEPATIC, BMP, PHOS, MG, TSH3, HS TROP, CBC, LACTIC, PT, PTT #### [facility] [address] [place] [address] Creatinine [Mass/Vol] 1.78 mg/dL High 0.44-1.03 [facility] Comment on above: Performed By: #### C AION #### [facility] , #### HEPATIC, BMP, PHOS, MG, TSH3, HS TROP, CBC, LACTIC, PT, PTT #### [facility] [address] [place] [address] Creatinine Clr Calc Pharmacy 35.09 [facility] Comment on above: Performed By: #### C AION #### [facility] , #### HEPATIC, BMP, PHOS, MG, TSH3, HS TROP, CBC, LACTIC, PT, PTT #### [facility] [address] [place] [address] Estimated GFR ( Cheri 35 [facility] Comment on above: Result Comment: GFR estimated reference range: According to KDOQI guidelines, <60 ml/min/1.73m2 is sufficient to diagnose a patient with chronic kidney disease. Performed By: #### C AION #### [facility] , #### HEPATIC, BMP, PHOS, MG, TSH3, HS TROP, CBC, LACTIC, PT, PTT #### [facility] [address] Estimated GFR (Non- Am 29 Normal [facility] Comment on above: Performed By: #### C AION #### [facility] , #### HEPATIC, BMP, PHOS, MG, TSH3, HS TROP, CBC, LACTIC, PT, PTT #### [facility] [address] Glucose [Mass/Vol] 89 mg/dL Normal 70-[address] [facility] Comment on above: Result Comment: [facility] Glucose Reference Range is dependent on time and content of last meal. Glucose of more than 200 mg/dL in a nonstressed, ambulatory subject supports the diagnosis of Diabetes Mellitus. ADA recommended reference range Performed By: #### C AION #### [facility] , #### HEPATIC, BMP, PHOS, MG, TSH3, HS TROP, CBC, LACTIC, PT, PTT #### [facility] [address] Potassium [Moles/Vol] 5.3 mmol/L High 3.5-5.1 [facility] Comment on above: Performed By: #### C AION #### [facility] , #### HEPATIC, BMP, PHOS, MG, TSH3, HS TROP, CBC, LACTIC, PT, PTT #### [facility] [address] Sodium [Moles/Vol] 126 mmol/L Low 136-[address] [facility] Comment on above: Performed By: #### C AION #### [facility] , #### HEPATIC, BMP, PHOS, MG, TSH3, HS TROP, CBC, LACTIC, PT, PTT #### [facility] [address] [place] [id number] [facility] Urea nitrogen [Mass/Vol] 26 mg/dL High 12-31 [facility] Comment on above: Performed By: #### C AION #### [facility] , #### HEPATIC, BMP, PHOS, MG, TSH3, HS TROP, CBC, LACTIC, PT, PTT #### [facility] [address] [place] [id number] [facility] CT chest wo conon 12-06-2021 CT chest wo con [facility] [place] [address] [place] [address] CT Scan Report Signed Patient: Juanita Redman MR#: [id number] : 1965 Acct:[id number] Age/Sex: 56 / F ADM Date: 12/04/21 Loc: Room: [address] [place] [address] Type: ADM IN Attending Dr: Hong Mcintosh DO Copies to: MD Hong Tijerina DO Ordering Provider: William Esposito MD Date of Service: 12/06/21 CT/CT chest wo con: SOB and Hyponatremia CT CHEST WITHOUT CONTRAST COMPARISON: Chest x-ray 12/03/2021 CLINICAL DATA: Shortness of breath and hyponatremia. Spiral images were obtained through the chest without contrast. Images were reviewed using both narrow and wide window settings. This CT exam was performed using one or more following dose reduction techniques: Automated exposure control, adjustment of the mA and/or kV according to patient size, or use of iterative reconstruction technique. The heart is within normal limits for size. There is no pericardial effusion. Coronary artery calcification and/or stents are seen. The ascending aorta is mildly ectatic. There are few small nonpathologic mediastinal lymph nodes. There is slight dextroscoliotic curvature and mild endplate spurring at the spine. There are tiny bilateral layering pleural effusions. There is minimal linear scarring or atelectasis, predominantly at the lingula. There is no consolidation or pneumothorax. There is a left upper lobe calcified granuloma. No other pulmonary nodularity is seen. Limited cuts through the upper abdomen show bilateral perinephric fibrofatty stranding. There is an exophytic hypodensity which is partially imaged on the left and might be a renal cyst. There is a trace amount of perihepatic and perisplenic ascites. There is mild subcutaneous edema. CT/CT chest wo con IMPRESSION: TINY PLEURAL EFFUSIONS. MINIMAL ATELECTASIS OR SCARRING. MINOR UPPER ABDOMINAL ASCITES. PERINEPHRIC FIBROFATTY STRANDING AND SUSPECTED LEFT RENAL CYST. Impression dictated by: Rossi Salinas M.D.12/06/2021 6:01 PM Dictation Location: [place] [address] Transcribed By: [facility] 12/06/211800 Dictated By: Rossi Salinas MD 12/06/21 175 Signed By: 12/06/211800 Normal [facility] CULTURE URINEon 12-06-2021 CULTURE URINE Isolate 1 Raoultella ornithinolytica >100,000 cfu/mL of ORGANISM 1 Raoultella ornithinolytica ANTIBIOTIC M.I.C RX STATUS Ampicillin 16 R F Ampicillin/Sulbactam <=2 S F Piperacillin/Tazobactam <=4 S F Cefazolin <=4 S F Ceftazidime <=1 S F Ceftriaxone <=1 S F Ertapenem <=0.5 S F Imipenem <=0.25 S F Amikacin <=2 S F Gentamicin <=1 S F Tobramycin <=1 S F Ciprofloxacin <=0.25 S F Levofloxacin <=0.12 S F Nitrofurantoin <=16 S F Trimethoprim/Sulfamethoxaz ole <=20 S F Normal [facility] Comment on above: Performed By: #### H STROPN #### [facility] Laboratory [address] [place] [address] [address] Debra Blake Complete Blood Count Auto Di ffon 12-06-2021 Basophils (Bld) [#/Vol] 0.1 10*3/uL Normal 0.0-0.2 [facility] Comment on above: Result Comment: PERF ORMED BY: [facility] [address] [place] [address] PATHOLOGIST TRAFFIC I MANAGER BRITTNY SELLERS M.D. Performed By: #### C AION #### [facility] , #### HEPATIC, BMP, PHOS, MG, TSH3, HS TROP, CBC, LACTIC, PT, PTT #### [address] Basophils/100 WBC (Bld) 0.9 % Normal . [facility] Comment on above: Performed By: #### C AION #### [facility] , #### HEPATIC, BMP, PHOS, MG, TSH3, HS TROP, CBC, LACTIC, PT, PTT #### [address] Eosinophils (Bld) [#/Vol] 0.1 10*3/uL Normal 0.0-0.45 [facility] Comment on above: Performed By: #### C AION #### [facility] , #### HEPATIC, BMP, PHOS, MG, TSH3, HS TROP, CBC, LACTIC, PT, PTT #### [address] Eosinophils/100 WBC (Bld) 2.3 % Normal . [facility] Comment on above: Performed By: #### C AION #### [facility] , #### HEPATIC, BMP, PHOS, MG, TSH3, HS TROP, CBC, LACTIC, PT, PTT #### [address] Erythrocyte distribution width (RBC) [Ratio] 16.6 % High 11.9-15.3 [facility] Comment on above: Performed By: #### C AION #### [facility] , #### HEPATIC, BMP, PHOS, MG, TSH3, HS TROP, CBC, LACTIC, PT, PTT #### [address] Hematocrit (Bld) [Volume fraction] 26.2 % Low 34.0-46.4 [facility] Comment on above: Performed By: #### C AION #### [facility] , #### HEPATIC, BMP, PHOS, MG, TSH3, HS TROP, CBC, LACTIC, PT, PTT #### [address] Hemoglobin (Bld) [Mass/Vol] 8.7 g/dL Low 11.8-15.4 [facility] Comment on above: Performed By: #### C AION #### [facility] , #### HEPATIC, BMP, PHOS, MG, TSH3, HS TROP, CBC, LACTIC, PT, PTT #### [address] Lymphocytes (Bld) [#/Vol] 1.3 10*3/uL Normal 1.00-4.8 [facility] Comment on above: Performed By: #### C AION #### [facility] , #### HEPATIC, BMP, PHOS, MG, TSH3, HS TROP, CBC, LACTIC, PT, PTT #### [address] Lymphocytes/100 WBC (Bld) 19.7 % Normal . [facility] Comment on above: Performed By: #### C AION #### [facility] , #### HEPATIC, BMP, PHOS, MG, TSH3, HS TROP, CBC, LACTIC, PT, PTT #### [address] MCH (RBC) [Entitic mass] 34.3 pg Normal 24.7-34.3 [facility] Comment on above: Performed By: #### C AION #### [facility] , #### HEPATIC, BMP, PHOS, MG, TSH3, HS TROP, CBC, LACTIC, PT, PTT #### [address] MCV (RBC) [Entitic vol] 103.8 fL High 80-100 [facility] Comment on above: Performed By: #### C AION #### [facility] , #### HEPATIC, BMP, PHOS, MG, TSH3, HS TROP, CBC, LACTIC, PT, PTT #### [address] Mean Corpuscular HGB Conc 33.1 g/dL Normal 32.0-35.0 [facility] Comment on above: Performed By: #### C AION #### [facility] , #### HEPATIC, BMP, PHOS, MG, TSH3, HS TROP, CBC, LACTIC, PT, PTT #### [address] Monocytes (Bld) [#/Vol] 0.9 10*3/uL High 0.0-0.8 [facility] Comment on above: Performed By: #### C AION #### [facility] , #### HEPATIC, BMP, PHOS, MG, TSH3, HS TROP, CBC, LACTIC, PT, PTT #### [address] Monocytes/100 WBC (Bld) 14.4 % Normal . [facility] Comment on above: Performed By: #### C AION #### [facility] , #### HEPATIC, BMP, PHOS, MG, TSH3, HS TROP, CBC, LACTIC, PT, PTT #### [address] Neutrophils (Bld) [#/Vol] 4.0 10*3/uL Normal 1.8-7.7 [facility] Comment on above: Performed By: #### C AION #### [facility] , #### HEPATIC, BMP, PHOS, MG, TSH3, HS TROP, CBC, LACTIC, PT, PTT #### [address] Neutrophils/100 WBC (Bld) 62.7 % Normal . [facility] Comment on above: Performed By: #### C AION #### [facility] , #### HEPATIC, BMP, PHOS, MG, TSH3, HS TROP, CBC, LACTIC, PT, PTT #### [address] Nucleated RBC/100 WBC (Bld) [Ratio] 0.3 % Normal 0-0.5 [facility] Comment on above: Performed By: #### C AION #### [facility] , #### HEPATIC, BMP, PHOS, MG, TSH3, HS TROP, CBC, LACTIC, PT, PTT #### [address] Platelet mean volume (Bld) [Entitic vol] 7.9 fL Normal 6.3-10.7 [facility] Comment on above: Performed By: #### C AION #### [facility] , #### HEPATIC, BMP, PHOS, MG, TSH3, HS TROP, CBC, LACTIC, PT, PTT #### [address] Platelets (Bld) [#/Vol] 218 10*3/uL Normal 150-450 [facility] Comment on above: Performed By: #### C AION #### [facility] , #### HEPATIC, BMP, PHOS, MG, TSH3, HS TROP, CBC, LACTIC, PT, PTT #### [address] RBC (Bld) [#/Vol] 2.52 10*6/uL Low 3.60-5.00 [facility] Comment on above: Performed By: #### C AION #### [facility] , #### HEPATIC, BMP, PHOS, MG, TSH3, HS TROP, CBC, LACTIC, PT, PTT #### [address] WBC (Bld) [#/Vol] 6.4 10*3/uL Normal 4.5-11.[address] [facility] Comment on above: Performed By: #### C AION #### [facility] , #### HEPATIC, BMP, PHOS, MG, TSH3, HS TROP, CBC, LACTIC, PT, PTT #### [facility] [address] Cyclic Citrulliated Pep Abon 12-06-2021 Cyclic Citrulliated Pep Ab 10 Normal 0-19 [facility] Comment on above: Result Comment: Nega tive <20 Weak positive 20 - 39 Moderate positive 40 - 59 Strong positive >59 Performed at: - [facility] [id number] Fuel Operator: Meli Bishop MD, Phone: [phone] PERFORMED BY: [place] [address] PATHOLOGIST TRAFFIC I MANAGER BRITTNY SELLERS M.D. Performed By: #### V ITB1 #### [facility] , #### PAB, [id number], A1C WTH eA #### [address] ECG 12 lead ECGon 12-06-2021 ECG 12 lead ECG [facility] [place] [address] Electrocardiograph Report Signed Patient: Juanita Redman MR#: [id number] : 1965 Acct:[id number] Age/Sex: 56 / F ADM Date: 12/04/21 Loc: Room: [address] [place] [address] Type: DIS IN Attending Dr: Hong Mcintosh DO Ordering Provider: Hong Mcintosh DO Date of Service: 12/06/21 ECG/ECG 12 lead ECG: Rhythm change Copies to: Test Reason : Blood Pressure : / mmHG Vent. Rate : 089 BPM Atrial Rate : 300 BPM P-R Int : 000 ms QRS Dur : 064 ms QT Int : 406 ms P-R-T Axes : 000 047 039 degrees QTc Int : 493 ms Atrial flutter with variable AV block Low voltage QRS Abnormal ECG When compared with ECG of 05-DEC-2021 07:10, Atrial flutter has replaced Sinus rhythm Vent. rate has increased BY 29 BPM Confirmed by ZHEN PRATT DO ([id number]) on 12/06/2021 8:03:50 PM Referred By: Electronically Signed By:ZHEN PRATT DO Transcribed By: MUS Signed By Zhen Pratt DO 12/06 Normal [facility] Ethyl Alcohol Profileon 11-09 Ethanol [Mass/Vol] mg/dL Normal [facility] Comment on above: Performed By: #### V ITB1 #### [facility] , #### PAB, [id number], A1C [facility] eA #### [facility] [address] [place] [address] Percent Ethanol Not performed Normal [facility] Comment on above: Result Comment: PERF ORMED BY: [place] [address] PATHOLOGIST TRAFFIC I MANAGER BRITTNY SELLERS M.D. Performed By: #### V ITB1 #### [facility] , #### PAB, [id number], A1C [facility] eA #### [facility] [address] [place] [address] Glucose Glucometer (BldC) [M ass/Vol]Ordered By: Hong Mcintosh on 12-06-2021 Glucose [Mass/Vol] 145 mg/dL [facility] Comment on above: Random Glucose Refer ence Range is dependent on time and content of last meal. Glucose of more than 200 mg/dL in a nonstressed, ambulatory subject supports the diagnosis of Diabetes Mellitus. Glucose Poct Glucometerson 0 12-06-2021 Glucose [Mass/Vol] 145 mg/dL Normal [facility] Comment on above: Result Comment: [place] om Glucose Reference Range is dependent on time and content of last meal. Glucose of more than 200 mg/dL in a nonstressed, ambulatory subject supports the diagnosis of Diabetes Mellitus. PERFORMED BY: [place] [address] PATHOLOGIST TRAFFIC I MANAGER BRITTNY SELLERS M.D. Performed By: #### C AION #### [facility] , #### HEPATIC, BMP, PHOS, MG, TSH3, HS TROP, CBC, LACTIC, PT, PTT #### [facility] [address] [place] [address] Magnesiumon 12-06-2021 Magnesium [Mass/Vol] 1.6 mg/dL Normal 1.6-2.6 [facility] Comment on above: Result Comment: PERF ORMED BY: [place] [id number] PATHOLOGIST TRAFFIC I MANAGER BRITTNY SELLERS M.D. Performed By: #### V ITB1 #### [facility] , #### PAB, [id number], A1C WTH eA #### [address] Magnesium [Mass/Vol] 1.9 mg/dL Normal 1.6-2.6 [facility] Comment on above: Result Comment: PERF ORMED BY: [place] [id number] PATHOLOGIST TRAFFIC I MANAGER BRITTNY SELLERS M.D. Performed By: #### C AION #### [facility] , #### HEPATIC, BMP, PHOS, MG, TSH3, HS TROP, CBC, LACTIC, PT, PTT #### [address] No Panel InformationOrdered By: Hong Mcintosh on 12-06-2021 Anti-Nuclear Antibody Comment 2 See comment . [facility] Comment on above: For more information about Hep-2 cell patterns use ANApatterns.org, the official website for the International Consensus on Antinuclear Antibody (MATY) Patterns (ICAP). A positive MATY result may occur in healthy individuals (low titer) or be associated with a variety of diseases. See interpretation chart which is not all inclusive: Pattern Antigen Detected Suggested Disease Association Homogeneous DNA(ds,ss), SLE - High titers Nucleosomes, Histones Drug-induced SLE Speckled Sm, RN INFUSION, SCL-70, SLE,MCTD,PSS (diffuse form), SS-A/SS-B Sjogrens Nucleolar SCL-70, PM-1/SCL High titers Scleroderma, PM/DM Centromere Centromere PSS (limited form) w/Crest syndrome variable Nuclear Dot Sp100,[id number] Primary Biliary Cirrhosis Nuclear GP210, Primary Biliary Cirrhosis Membrane chun A,B,C Performed at: - [facility] [id number] Fuel Operator: Sanford Mehta PhD, Phone: [phone] OSMOLALITY URINEon 2 Osmolality, Urine 180 mOsmol/kg Normal [facility] Comment on above: Result Comment: 24 h r : 300 - 900 Random: 50 - 1400 After 12hr fluid restriction: >850 Performed By: #### H STROPN #### [facility] [address] [address] [address] Debra Blake Serum nuclear antibody titer Ordered By: Hong Mcintosh on 12-06-2021 Nuclear Ab (S) [Titer] Positive . [facility] Comment on above: Negative <1:80 Borderline 1:80 Positive >1:80 Serum or plasma cyclic adeno sine monophosphate measurement (moles/volume)Ordered By: Hong Mcintosh on 12-06-2021 Adenosine monophosphate.cyclic [Moles/Vol] 10 units 0-19 [facility] Comment on above: Negative <20 Weak positive 20 - 39 Moderate positive 40 - 59 Strong positive >59 Performed at: - [facility] [id number] Fuel Operator: Meli Bishop MD, Phone: [phone] Serum or plasma ethanol sigifredo urement (mass/volume)Ordered By: Rehan Russ on 12-06-2021 Ethanol [Mass/Vol] mg/dL [facility] Ethanol [Mass/Vol] TNP [facility] Comment on above: Test not performed Serum speckled pattern antin uclear antibody (MATY) titerOrdered By: Hong Mcintosh on 12-06-2021 Speckled nuclear Ab pattern (S) [Titer] 1:80 . [facility] Comment on above: ICAP nomenclature: A C-2,4,5,29 Stool Occult Bl. Scr. (Immun o)on 12-06-2021 Stool Occult Bl. Scr. (Immuno) Occult Blood (Immuno) Negative for Occult Blood by Immunochemical Methodology -- Reference range = Negative PERFORMED BY: [place] [address] PATHOLOGIST TRAFFIC I MANAGER BRITTNY SELLERS M.D. Normal [facility] Comment on above: Performed By: #### V ITB1 #### [facility] , #### PAB, [id number], A1C WT eA #### [facility] [address] [place] [address] [place] Troponin I High Sensitivityo n 12-06-2021 Troponin I High Sensitivity 8 pg/mL Normal 0-15 [facility] Comment on above: Result Comment: PERF ORMED BY: [place] [address] PATHOLOGIST TRAFFIC I MANAGER BRITTNY SELLERS M.D. Performed By: #### V ITB1 #### [facility] , #### PAB, [id number], A1C WT eA #### [facility] [address] [place] [address] [place] Amphetamine Screen Ql (U)Ord ered By: Hong Mcintosh on 12-05-2021 Amphetamines Ql (U) Negative Negative [facility] Automated erythrocytes count in urine sediment (number/area)Ordered By: Hong Mcintosh on 12-05-2021 RBC Auto (Urine sed) [#/Area] 1-2 [HPF] 0-4 [facility] Automated leukocytes count i n urine sediment (number/area)Ordered By: Hong Mcintosh on 12-05-2021 WBC Auto (Urine sed) [#/Area] Innumerable [HPF] 0-4 [facility] Automated urine color determ inationOrdered By: Hong Mcintosh on 12-05-2021 Color (U) Yellow Normal Yellow [facility] Comment on above: Order Comment: Name Collection Type:: Clean-Voided Midstream Performed By: #### V ITB1 #### [facility] , #### PAB, [id number], A1C WTH eA #### [facility] [address] [place] [address] [place] Barbiturates [Presence] in U rineOrdered By: Hong Mcintosh on 12-05-2021 Barbiturates Ql (U) Negative Negative [facility] Basic Metabolic Panelon 11-09 Calcium [Mass/Vol] 6.4 mg/dL Off scale low 8.2-10.2 [facility] Comment on above: Result Comment: Resu lts called at 0930 on 12/05/21 Performed By: #### V ITB1 #### [facility] , #### PAB, [id number], A1C WTH eA #### [facility] [address] [place] [address] [place] Chloride [Moles/Vol] 97 mmol/L Normal 95-114 [facility] Comment on above: Performed By: #### V ITB1 #### [facility] , #### PAB, [id number], A1C WTH eA #### [facility] [address] [place] [address] [place] CO2 [Moles/Vol] 17.7 mmol/L Low 22.0-30.0 [facility] Comment on above: Performed By: #### V ITB1 #### [facility] , #### PAB, [id number], A1C WTH eA #### [facility] [address] [place] [address] [place] Creatinine [Mass/Vol] 1.87 mg/dL High 0.44-1.03 [facility] Comment on above: Performed By: #### V ITB1 #### [facility] , #### PAB, [id number], A1C WTH eA #### [facility] [address] [place] [address] [place] Creatinine Clr Calc Pharmacy 33.23 [facility] Comment on above: Performed By: #### V ITB1 #### [facility] , #### PAB, [id number], A1C WTH eA #### [facility] [address] [place] [address] [place] Estimated GFR ( Cheri 33 [facility] Comment on above: Result Comment: GFR estimated reference range: According to KDOQI guidelines, <60 ml/min/1.73m2 is sufficient to diagnose a patient with chronic kidney disease. Performed By: #### V ITB1 #### [facility] , #### PAB, [id number], A1C WTH eA #### [address] Estimated GFR (Non- Am 28 [facility] Comment on above: Performed By: #### V ITB1 #### [facility] , #### PAB, [id number], A1C WTH eA #### [facility] [address] [place] [address] Glucose [Mass/Vol] 79 mg/dL Normal 70-[address] [facility] Comment on above: Result Comment: [place] Glucose Reference Range is dependent on time and content of last meal. Glucose of more than 200 mg/dL in a nonstressed, ambulatory subject supports the diagnosis of Diabetes Mellitus. ADA recommended reference range Performed By: #### V ITB1 #### [facility] , #### PAB, [id number], A1C WTH eA #### [facility] [address] [place] [address] Potassium [Moles/Vol] 4.7 mmol/L Normal 3.5-5.1 [facility] Comment on above: Performed By: #### V ITB1 #### [facility] , #### PAB, [id number], A1C WTH eA #### [facility] [address] Sodium [Moles/Vol] 125 mmol/L Low 136-[address] [facility] Comment on above: Performed By: #### V ITB1 #### [facility] , #### PAB, [id number], A1C WTH eA #### [facility] [address] Urea nitrogen [Mass/Vol] 26 mg/dL High 9-23 [facility] Comment on above: Performed By: #### V ITB1 #### [facility] , #### PAB, [id number], A1C WT eA #### [facility] [address] [place] [address] Benzodiazepines [Presence] i n UrineOrdered By: Hong Mcintosh on 12-05-2021 Benzodiazepines Ql (U) Positive Negative [facility] Bilirubin Test strip Ql (U)O rdered By: Hong Mcintosh on 12-05-2021 Bilirubin Ql (U) Negative Negative [facility] CT biopsyOrdered By: Patricia Mcintosh on 12-05-2021 Transferrin [Mass/Vol] 175 mg/dL 180-380 [facility] Cannabinoids [Presence] in U rine by Screen methodOrdered By: Hong Mcintosh on 12-05-2021 Cannabinoids Screen Ql (U) Negative Negative [facility] Comment on above: These are unconfirme d results and should not be used for legal purposes. Drug Cut-Off Concentration: AMPH 1000 ng/mL GAYLE 200 ng/mL ISAEL 200 ng/mL COCM 300 ng/mL OP 300 ng/mL PCP 25 ng/mL THC 20 ng/mL Complete Blood Count Auto Di ffon 12-05-2021 Basophils (Bld) [#/Vol] 0.0 10*3/uL Normal 0.0-0.2 [facility] Comment on above: Result Comment: PERF ORMED BY: [address] [place] [address] PATHOLOGIST TRAFFIC I MANAGER BRITTNY SELLERS M.D. Performed By: #### V ITB1 #### [facility] , #### PAB, [id number], A1C WTH eA #### [address] Basophils/100 WBC (Bld) 0.4 % Normal . [facility] Comment on above: Performed By: #### V ITB1 #### [facility] , #### PAB, [id number], A1C WTH eA #### [address] Eosinophils (Bld) [#/Vol] 0.1 10*3/uL Normal 0.0-0.45 [facility] Comment on above: Performed By: #### V ITB1 #### [facility] , #### PAB, [id number], A1C WTH eA #### [address] Eosinophils/100 WBC (Bld) 1.8 % Normal . [facility] Comment on above: Performed By: #### V ITB1 #### [facility] , #### PAB, [id number], A1C WTH eA #### [address] Erythrocyte distribution width (RBC) [Ratio] 16.8 % High 11.9-15.3 [facility] Comment on above: Performed By: #### V ITB1 #### [facility] , #### PAB, [id number], A1C WTH eA #### [address] Hematocrit (Bld) [Volume fraction] 22.8 % Low 34.0-46.4 [facility] Comment on above: Performed By: #### V ITB1 #### [facility] , #### PAB, [id number], A1C WTH eA #### [address] Hemoglobin (Bld) [Mass/Vol] 7.7 g/dL Low 11.8-15.4 [facility] Comment on above: Performed By: #### V ITB1 #### [facility] , #### PAB, [id number], A1C WTH eA #### [address] Lymphocytes (Bld) [#/Vol] 1.3 10*3/uL Normal 1.00-4.8 [facility] Comment on above: Performed By: #### V ITB1 #### [facility] , #### PAB, [id number], A1C WTH eA #### [address] Lymphocytes/100 WBC (Bld) 21.9 % Normal . [facility] Comment on above: Performed By: #### V ITB1 #### [facility] , #### PAB, [id number], A1C WTH eA #### [address] MCH (RBC) [Entitic mass] 34.9 pg High 24.7-34.3 [facility] Comment on above: Performed By: #### V ITB1 #### [facility] , #### PAB, [id number], A1C WTH eA #### [address] MCV (RBC) [Entitic vol] 103.8 fL High 80-100 [facility] Comment on above: Performed By: #### V ITB1 #### [facility] , #### PAB, [id number], A1C WTH eA #### [address] Mean Corpuscular HGB Conc 33.7 g/dL Normal 32.0-35.0 [facility] Comment on above: Performed By: #### V ITB1 #### [facility] , #### PAB, [id number], A1C WTH eA #### [facility] [address] [place] [address] [place] Monocytes (Bld) [#/Vol] 1.0 10*3/uL High 0.0-0.8 [facility] Comment on above: Performed By: #### V ITB1 #### [facility] , #### PAB, [id number], A1C WTH eA #### [facility] [address] [place] [address] [place] Monocytes/100 WBC (Bld) 16.6 % Normal . [facility] Comment on above: Performed By: #### V ITB1 #### [facility] , #### PAB, [id number], A1C WTH eA #### [facility] [address] [place] [address] [place] Neutrophils (Bld) [#/Vol] 3.4 10*3/uL Normal 1.8-7.7 [facility] Comment on above: Performed By: #### V ITB1 #### [facility] , #### PAB, [id number], A1C WTH eA #### [facility] [address] [place] [address] [place] Neutrophils/100 WBC (Bld) 59.3 % Normal . [facility] Comment on above: Performed By: #### V ITB1 #### [facility] , #### PAB, [id number], A1C WTH eA #### [facility] [address] [place] [id number] [place] Nucleated RBC/100 WBC (Bld) [Ratio] 0.0 % Normal 0-0.5 [facility] Comment on above: Performed By: #### V ITB1 #### [facility] , #### PAB, [id number], A1C WTH eA #### [facility] [address] [place] [address] Platelet mean volume (Bld) [Entitic vol] 7.5 fL Normal 6.3-10.7 [facility] Comment on above: Performed By: #### V ITB1 #### [facility] , #### PAB, [id number], A1C WTH eA #### [facility] [address] [place] [address] Platelets (Bld) [#/Vol] 187 10*3/uL Normal 150-450 [facility] Comment on above: Performed By: #### V ITB1 #### [facility] , #### PAB, [id number], A1C WTH eA #### [address] RBC (Bld) [#/Vol] 2.19 10*6/uL Low 3.60-5.00 [facility] Comment on above: Performed By: #### V ITB1 #### [facility] , #### PAB, [id number], A1C WTH eA #### [address] WBC (Bld) [#/Vol] 5.8 10*3/uL Normal 4.5-11.0 [facility] [facility] Comment on above: Performed By: #### V ITB1 #### [facility] , #### PAB, [id number], A1C WTH eA #### [facility] [address] [place] [address] [place] Dipstick and Microscopicon 0 12-05-2021 Appearance (U) Cloudy Critically abnormal Clear [facility] Comment on above: Order Comment: Name Collection Type:: Clean-Voided Midstream Performed By: #### V ITB1 #### [facility] , #### PAB, [id number], A1C WTH eA #### [facility] [address] [place] [address] Bacteria,Urine 4+ High None Seen [facility] Comment on above: Order Comment: Name Collection Type:: Clean-Voided Midstream Performed By: #### V ITB1 #### [facility] , #### PAB, [id number], A1C WTH eA #### [place] [address] [place] Bilirubin,Urine Negative Normal Negative [facility] Comment on above: Order Comment: Name Collection Type:: Clean-Voided Midstream Performed By: #### V ITB1 #### [facility] , #### PAB, [id number], A1C WTH eA #### [address] Glucose Ql (U) Normal Normal Normal [facility] Comment on above: Order Comment: Name Collection Type:: Clean-Voided Midstream Performed By: #### V ITB1 #### [facility] , #### PAB, [id number], A1C WTH eA #### [place] [address] [place] Hyaline Casts,Urine 0-8 Normal 0-8 [facility] Comment on above: Order Comment: Name Collection Type:: Clean-Voided Midstream Result Comment: PERF ORMED BY: [place] [address] PATHOLOGIST TRAFFIC I MANAGER BRITTNY SELLERS M.D. Performed By: #### V ITB1 #### [facility] , #### PAB, [id number], A1C WTH eA #### [place] [address] [place] Ketones Ql (U) Negative Normal Negative [facility] Comment on above: Order Comment: Name Collection Type:: Clean-Voided Midstream Performed By: #### V ITB1 #### [facility] , #### PAB, [id number], A1C WTH eA #### [facility] [address] [place] [address] Leukocyte esterase Test strip Ql (U) 4+ High Negative [facility] Comment on above: Order Comment: Name Collection Type:: Clean-Voided Midstream Performed By: #### V ITB1 #### [facility] , #### PAB, [id number], A1C WTH eA #### [facility] [address] [place] [address] Nitrite,Urine Negative Normal Negative [facility] Comment on above: Order Comment: Name Collection Type:: Clean-Voided Midstream Performed By: #### V ITB1 #### [facility] , #### PAB, [id number], A1C WTH eA #### [address] Occult Blood,Urine Negative Normal Negative [facility] Comment on above: Order Comment: Name Collection Type:: Clean-Voided Midstream Result Comment: PERF ORMED BY: [place] [address] PATHOLOGIST TRAFFIC I MANAGER BRITTNY SELLERS M.D. Performed By: #### V ITB1 #### [facility] , #### PAB, [id number], A1C WTH eA #### [address] RBC,Urine 1-2 Normal 0-4 [facility] Comment on above: Order Comment: Name Collection Type:: Clean-Voided Midstream Performed By: #### V ITB1 #### [facility] , #### PAB, [id number], A1C WTH eA #### [facility] [address] [place] [address] Specificy [place],Urine 1.013 Normal 1.00 1-1.03 0 [facility] Comment on above: Order Comment: Name Collection Type:: Clean-Voided Midstream Performed By: #### V ITB1 #### [facility] , #### PAB, [id number], A1C WTH eA #### [facility] [address] [place] [address] Squamous Epithelial Cell,Urine 5-9 High 0-2 [facility] Comment on above: Order Comment: Name Collection Type:: Clean-Voided Midstream Performed By: #### V ITB1 #### [facility] , #### PAB, [id number], A1C WTH eA #### [facility] [address] [place] [address] Urobilinogen,Urine Normal Normal Normal [facility] Comment on above: Order Comment: Name Collection Type:: Clean-Voided Midstream Performed By: #### V ITB1 #### [facility] , #### PAB, [id number], A1C WTH eA #### [address] WBC,Urine Innumerable High 0-4 [facility] Comment on above: Order Comment: Name Collection Type:: Clean-Voided Midstream Performed By: #### V ITB1 #### [facility] , #### PAB, [id number], A1C WTH eA #### [address] Drug Screen,Urineon 12-06-19 Amphetamine Screen,Urine Negative Normal Negative [facility] Comment on above: Performed By: #### V ITB1 #### [facility] , #### PAB, [id number], A1C WTH eA #### [facility] [address] [place] [address] Barbiturate Screen,Urine Negative Normal Negative [facility] Comment on above: Performed By: #### V ITB1 #### [facility] , #### PAB, [id number], A1C WTH eA #### [facility] [address] [place] [address] [place] Benzodiazepines Screen,Urine Positive High Negative [facility] Comment on above: Performed By: #### V ITB1 #### [facility] , #### PAB, [id number], A1C WT eA #### [place] [address] [place] Cannabinoid Screen,Urine Negative Normal Negative [facility] Comment on above: Result Comment: Thes e are unconfirmed results and should not be used for legal purposes. Drug Cut-Off Concentration: AMPH 1000 ng/mL GAYLE 200 ng/mL ISAEL 200 ng/mL COCM 300 ng/mL OP 300 ng/mL PCP 25 ng/mL THC 20 ng/mL PERFORMED BY: [place] [address] PATHOLOGIST TRAFFIC I MANAGER BRITTNY SELLERS M.D. Performed By: #### V ITB1 #### [facility] , #### PAB, [id number], [facility] WT eA #### [place] [address] [place] Cocaine Screen,Urine Negative Normal Negative [facility] Comment on above: Performed By: #### V ITB1 #### [facility] , #### PAB, [id number], [facility] WT eA #### [place] [address] [place] Opiate Screen,Urine Negative Normal Negative [facility] Comment on above: Performed By: #### V ITB1 #### [facility] , #### PAB, [id number], A1C WT eA #### [facility] [address] [place] [address] [place] Phencyclidine Screen,Urine Negative Normal Negative [facility] Comment on above: Performed By: #### V ITB1 #### [facility] , #### PAB, [id number], A1C WTH eA #### [address] ECG 12 lead ECG 12-05-2021 ECG 12 lead ECG [facility] [place] [address] [place] [address] Electrocardiograph Report Signed Patient: Juanita Redman MR#: [id number] : 1965 Acct:[id number] Age/Sex: 56 / F ADM Date: 12/04/21 Loc: Room: [address] [place] [address] Type: DIS IN Attending Dr: Hong Mcintosh DO Ordering Provider: Hong Mcintosh DO Date of Service: 12/05/21 ECG/ECG 12 lead ECG: elevated troponin Copies to: Test Reason : Blood Pressure : / mmHG Vent. Rate : 060 BPM Atrial Rate : 060 BPM P-R Int : 190 ms QRS Dur : 068 ms QT Int : 460 ms P-R-T Axes : 037 032 025 degrees QTc Int : 460 ms Normal sinus rhythm Low voltage QRS Borderline ECG When compared with ECG of 04-DEC-2021 11:20, (Unconfirmed) No significant change was found Confirmed by LUCINA BLAIR [facility] ([id number] on 12/06/2021 1:18:31 PM Referred By: Electronically Signed By:KYLAH KINGSLEY MD [facility] Transcribed By: MUS Signed By Kylah Kingsley MD, FACC 12/06/21 1318 Normal [facility] Ferritinon 12-05-2021 Ferritin [Mass/Vol] 80.8 ng/mL Normal 11-306.8 [facility] Comment on above: Performed By: #### V ITB1 #### [facility] , #### PAB, [id number], A1C WT eA #### [facility] [address] [place] [address] [place] Ferritin [Mass/volume] in Se rum or PlasmaOrdered By: Hong Mcintosh on 12-05-2021 Ferritin [Mass/Vol] 80.8 ng/mL 11-306.8 [facility] Free T4 (Free Thyroxine)on 0 12-05-2021 Free T4 [Mass/Vol] 1.00 ng/dL Normal 0.61-1.[address] [facility] Comment on above: Performed By: #### V ITB1 #### [facility] , #### PAB, [id number], A1C WTH eA #### [facility] [address] [place] [address] [place] Ironon 12-05-2021 Iron [Mass/Vol] 22 ug/dL Low 40-150 [facility] Comment on above: Performed By: #### V ITB1 #### [facility] , #### PAB, [id number], A1C WT eA #### [facility] [address] Iron [Mass/volume] in Serum or PlasmaOrdered By: Hong Mcintosh on 12-05-2021 Iron [Mass/Vol] 22 ug/dL 40-150 [facility] Iron binding capacity [Mass/ volume] in Serum or PlasmaOrdered By: Hong Mcintosh on 12-05-2021 Iron binding capacity [Mass/Vol] 245 ug/dL 255-450 [facility] Ketones Auto test strip (U) [Mass/Vol]Ordered By: Hong Mcintosh on 12-05-2021 Ketones (U) [Mass/Vol] Negative Negative [facility] LDH Lactate Dehydrogenaseon 12-05-2021 LDH Lactate Dehydrogenase 135 U/L Normal 45-190 [facility] Comment on above: Performed By: #### V ITB1 #### [facility] , #### PAB, [id number], A1C WT eA #### [facility] [address] Laboratory - Drug toxicology Ordered By: Hong Mcintosh on 12-05-2021 Opiates Ql (U) Negative Negative [facility] Laboratory - UrinalysisOrder ed By: Hong Mcintosh on 12-05-2021 Hyaline casts LM Ql (Urine sed) 0-8 [LPF] 0-8 [facility] Lactate dehydrogenase measur ement (enzymatic activity/volume)Ordered By: Hong Mcintosh on 12-05-2021 LDH (Unsp spec) [Catalytic activity/Vol] 135 U/L 45-190 [facility] Magnesiumon 12-05-2021 Magnesium [Mass/Vol] 2.6 mg/dL Significant change down 1.6-2.6 [facility] Comment on above: Performed By: #### V ITB1 #### [facility] , #### PAB, [id number], A1C WTH eA #### [facility] [address] Nitrite Test strip Ql (U)Ord ered By: Hong Mcintosh on 12-05-2021 Nitrite Ql (U) Negative Negative [facility] No Panel InformationOrdered By: Hong Mcintosh on 12-05-2021 25-Hydroxy Vitamin D Total 21.8 ng/mL 30-100 [facility] Comment on above: VITAMIN D STATUS 25( [place])VITAMIN D RANGE (ng/mL) Deficient <20 Insufficient 20 to <30 Sufficient 30 to 100 Reference: Maggie MF,Jose NC, Richar-Rickie VARGAS, et al. Evaluation,treatment, and prevention of vitamin D deficiency; an Endocrine Society clinical practice guideline. JCEM. 2010; 96(7):1911-30. Vitamin C level <0.1 mg/dL 0.4-2.0 [facility] Comment on above: This test was serena claudio and its performance characteristics determined by [facility]. It has not been cleared or approved by the Food and Drug Administration. Vitamin C deficiency is generally defined as plasma or serum concentrations less than 0.2 mg/dL and levels between 0.2 and 0.4 mg/dL are considered low. Performed at: [address] [id number] Fuel Operator: Meli Bishop MD, Phone: [phone] Phencyclidine Screen Ql (U)O rdered By: Hong Mcintosh on 12-05-2021 Phencyclidine Ql (U) Negative Negative [facility] Phosphatidylethanolon 2021 Phosphatidylethanol 301 ng/mL High NEGATIVE [facility] Comment on above: Result Comment: Anal yzed compound: PEth 16:0/18:1. 8-prsbuegqm-6-xoabwj-qx-wgzukdl-3-phosphoethanol. Analysis performed by Liquid Chromatography with Tandem Mass Spectrometry (LC/MS/MS). Detection limit: 20 ng/mL PEth levels in excess of 20 ng/mL are considered evidence of moderate to heavy ethanol consumption. However, the Center for Substance Abuse Treatment (CSAT) advises caution in interpretation and use of biomarkers alone to assess alcohol use. Results should be interpreted in the context of all available clinical and behavioral information. Reference: Substance Abuse and Mental Health Services Administration (2012). The Role of Biomarkers in the Treatment of Alcohol Use Disorders , 2012 Revision. Advisory, Volume 11, Issue 2. This test was developed and its performance characteristics determined by [facility]. It has not been cleared or approved by the Food and Drug Administration. Performed at: [facility] [address] [id number] Fuel Operator: Cat Villegas [facility], Phone: [phone] PERFORMED BY: [facility] [address] [place] [id number] PATHOLOGIST TRAFFIC I MANAGER BRITTNY SELLERS M.D. Performed By: #### V IT C, PETH #### [facility] , Serum or plasma thyroxine (T 4) measurement (mass/volume)Ordered By: Hong Mcintosh on 12-05-2021 T4 [Mass/Vol] 7.19 ug/dL 5.39-11.82 [facility] Specific gravity Auto test s trip (U) [Rel density]Ordered By: Hong Mcintosh on 12-05-2021 Specific gravity (U) [Rel density] 1.013 1.001-1.03 0 [facility] Squamous epithelial cells de tection in urine sediment by light microscopyOrdered By: Hong Mcintosh on 12-05-2021 Epithelial cells.squamous LM Ql (Urine sed) 5-9 [HPF] 0-2 [facility] Thyroxine (T4) Totalon 12-05 T4 [Mass/Vol] 7.19 ug/dL Normal 5.39-11.82 [facility] Comment on above: Performed By: #### V ITB1 #### [facility] , #### PAB, [id number], A1C WT eA #### [facility] [address] [place] [address] Thyroxine (T4) free [Mass/vo lume] in Serum or PlasmaOrdered By: Hong Mcintosh on 12-05-2021 Free T4 [Mass/Vol] 1.00 ng/dL 0.61-1.[address] [facility] Total Iron Binding Capacityo n 12-05-2021 Total Iron Binding Capacity 245 ug/dL Low 255-450 [facility] Comment on above: Performed By: #### V ITB1 #### [facility] , #### PAB, [id number], A1C WT eA #### [facility] [address] [place] [address] Transferrin [Mass/Vol] 175 mg/dL Low 180-380 [facility] Comment on above: Performed By: #### V ITB1 #### [facility] , #### PAB, [id number], A1C WT eA #### [facility] [address] [place] [address] Troponin I High Sensitivityo n 12-05-2021 Troponin I High Sensitivity 20 pg/mL High 0-15 [facility] Comment on above: Result Comment: PERF ORMED BY: [place] [address] PATHOLOGIST TRAFFIC I MANAGER BRITTNY SELLERS M.D. Performed By: #### V ITB1 #### [facility] , #### PAB, [id number], A1C WT eA #### [facility] [address] [place] [address] Urine Cultureon 12-05-2021 Bacteria identified Cx Nom (U) ORGANISM: Klebsiella oxytoca (O:KLEOXY) [place] Count >100,000 Aerobic VARSHA Charge (NUC86) SUSCEPTIBILITY ORGANISM: O:KLEOXY ANTIBIOTIC INTERPRETATION VARSHA Amikacin S <16 Ampicillin R >16 Ampicillin/Sulbactam S <8/4 Aztreonam S <4 Cefazolin S <2 Cefepime S <2 Ceftazidime S <1 Ceftazidime/Avibactam S <8 Ceftriaxone S <1 Ciprofloxacin S <1 Ertapenem S <0.5 Gentamicin S <4 Levofloxacin S <2 Meropenem S <1 Nitrofurantoin S <32 Piperacillin/Tazobactam S <16 Tetracycline S <4 Tigecycline S <2 Tobramycin S <4 Trimethoprim/Sulfamethoxaz ole S <2/38 S = SUSCEPTIBLE I = INTERMEDIATE R = RESISTANT BLANK = DATA NOT AVAILABLE, OR DRUG NOT ADVISABLE OR TESTED R* = RESISTANCE DUE TO EXTENDED SPECTRUM BETA-LACTAMASES ESBL = EXTENDED SPECTRUM BETA-LACTAMASE TFG = THYMIDINE-DEPENDENT STRAIN COCO = BETA-LACTAMASE POSITIVE IB = INDUCIBLE BETA-LACTAMASE. APPEARS IN PLACE OF 'S' WITH SPECIES KNOWN TO POSSESS INDUCIBLE BETA-LACTAMASES. POTENTIALLY THEY MAY BECOME RESISTANT TO ALL B-LACTAM DRUGS. PERFORMED BY: [place] [address] PATHOLOGIST TRAFFIC I MANAGER BRITTNY SELLERS M.D. Normal [facility] Comment on above: Performed By: #### V ITB1 #### [facility] , #### PAB, [id number], A1C WTH eA #### [facility] [address] [place] [address] [place] Urine bacteria detection by automated methodOrdered By: Hong Mcintosh on 12-05-2021 Bacteria Auto Ql (U) 4+ None Seen [facility] Urine clarity by refractomet ry automatedOrdered By: Hong Mcintosh on 12-05-2021 Clarity Refractometry automated (U) Cloudy Clear [facility] Urine cocaine detectionOrder ed By: Hong Mcintosh on 12-05-2021 Cocaine Ql (U) Negative Negative [facility] Urine glucose measurement by automated test strip (mass/volume)Ordered By: Hong Mcintosh on 12-05-2021 Glucose Auto test strip (U) [Mass/Vol] Normal mg/dL Normal [facility] Urine hemoglobin detection b y automated test stripOrdered By: Hong Mcintosh on 12-05-2021 Hemoglobin Auto test strip Ql (U) Negative Negative [facility] Urine leukocyte esterase det ection by automated test stripOrdered By: Hong Mcintosh on 12-05-2021 Leukocyte esterase Auto test strip Ql (U) 4+ Negative [facility] Urine pH measurement by auto mated test stripOrdered By: Hong Mcintosh on 12-05-2021 pH (U) 5.5 [pH] Normal 5.0-9.0 [facility] Comment on above: Order Comment: Name Collection Type:: Clean-Voided Midstream Performed By: #### V ITB1 #### [facility] , #### PAB, [id number], A1C WTH eA #### [facility] [address] [place] [address] [place] Urine protein measurement by automated test strip (mass/volume)Ordered By: Hong Mcintosh on 12-05-2021 Protein (U) [Mass/Vol] 30 mg/dL High Negative [facility] Comment on above: Order Comment: Name Collection Type:: Clean-Voided Midstream Performed By: #### V ITB1 #### [facility] , #### PAB, [id number], A1C WTH eA #### [facility] [address] [place] [id number] [place] Urobilinogen Auto test strip (U) [Mass/Vol]Ordered By: Hong Mcintosh on 12-05-2021 Urobilinogen (U) [Mass/Vol] Normal mg/dL Normal [facility] Vitamin Con 12-05-2021 Vitamin C <0.1 Low 0.4-2.0 [facility] Comment on above: Result Comment: This test was developed and its performance characteristics determined by [facility]. It has not been cleared or approved by the Food and Drug Administration. Vitamin C deficiency is generally defined as plasma or serum concentrations less than 0.2 mg/dL and levels between 0.2 and 0.4 mg/dL are considered low. Performed at: [address] [id number] Fuel Operator: Meli Bishop MD, Phone: [phone] Performed By: #### V IT C, PETH #### [facility] , Vitamin D 25 Hydroxy Totalon 12-05-2021 Vitamin D 25 Hydroxy Total 21.8 ng/mL Low 30-100 [facility] Comment on above: Result Comment: TYSON MIN D STATUS 25(OH)VITAMIN D RANGE (ng/mL) Deficient <20 Insufficient 20 to <30 Sufficient 30 to 100 Reference: Maggie MF,Jose NC, Gilberto VARGAS, et al. Evaluation,treatment, and prevention of vitamin D deficiency; an Endocrine Society clinical practice guideline. JCEM. 2010; 96(7):1911-30. PERFORMED BY: [place] [address] PATHOLOGIST TRAFFIC I MANAGER BRITTNY SELLERS M.D. Performed By: #### V ITB1 #### [facility] , #### PAB, [id number], A1C WT eA #### [place] [id number] [facility] A1C with Estimated Average G luon 12-04-2021 Glucose [Mass/Vol] 97 mg/dL Normal [facility] Comment on above: Result Comment: PERF ORMED BY: [place] [address] PATHOLOGIST TRAFFIC I MANAGER BRITTNY SELLERS M.D. Performed By: #### V ITB1 #### [facility] , #### PAB, [id number], A1C WTH eA #### [place] [id number] [facility] HbA1c (Bld) [Mass fraction] 5.0 % Normal 4.3-5.6 [facility] Comment on above: Result Comment: Incr eased risk for diabetes: 5.7 - 6.4 diabetes: >6.4 glycemic control for adults with diabetes: <7.0 Performed By: #### V ITB1 #### [facility] , #### PAB, [id number], A1C WTH eA #### [facility] [address] Activated partial thrombopla stin time (aPTT) in platelet poor plasma by coagulation aOrdered By: Hong Mcintosh on 12-04-2021 aPTT Coag (PPP) [Time] 29.9 s 25.1-36.5 [facility] Basic Metabolic Panelon 11-09 Calcium [Mass/Vol] 6.2 mg/dL Off scale low 8.2-10.2 [facility] Comment on above: Result Comment: Resu lts called at 1318 on 12/04/21 Performed By: #### C AION ####[facility] ,#### HEPATIC, BMP, PHOS, MG, TSH3, HS TROP, CBC, LACTIC, PT, PTT ####[facility] [place] Chloride [Moles/Vol] 95 mmol/L Normal 95-114 [facility] Comment on above: Performed By: #### C AION ####[facility] ,#### HEPATIC, BMP, PHOS, MG, TSH3, HS TROP, CBC, LACTIC, PT, PTT ####[place] [id number] [address] CO2 [Moles/Vol] 16.6 mmol/L Low 22.0-30.0 [facility] Comment on above: Performed By: #### C AION ####[facility] ,#### HEPATIC, BMP, PHOS, MG, TSH3, HS TROP, CBC, LACTIC, PT, PTT ####[place] [id number] [address] Creatinine [Mass/Vol] 2.26 mg/dL High 0.44-1.03 [facility] Comment on above: Performed By: #### C AION ####[facility] ,#### HEPATIC, BMP, PHOS, MG, TSH3, HS TROP, CBC, LACTIC, PT, PTT ####[address] Creatinine Clr Cal[facility] 27.74 [facility] Comment on above: Performed By: #### C AION ####[facility] ,#### HEPATIC, BMP, PHOS, MG, TSH3, HS TROP, CBC, LACTIC, PT, PTT ####[address] Estimated GFR ( Cheri 27 [facility] Comment on above: Result Comment: GFR estimated reference range: According to KDOQI guidelines, <60 ml/min/1.73m2 is sufficient to diagnose a patient with chronic kidney disease. Performed By: #### C AION ####[facility] ,#### HEPATIC, BMP, PHOS, MG, TSH3, HS TROP, CBC, LACTIC, PT, PTT ####[address] Estimated GFR (Non- Am 22 [facility] Comment on above: Performed By: #### C AION ####[facility] ,#### HEPATIC, BMP, PHOS, MG, TSH3, HS TROP, CBC, LACTIC, PT, PTT ####[address] Glucose [Mass/Vol] 90 mg/dL Normal 70-[address] [facility] Comment on above: Result Comment: [place] Glucose Reference Range is dependent on time and content of last meal. Glucose of more than 200 mg/dL in a nonstressed, ambulatory subject supports the diagnosis of Diabetes Mellitus. ADA recommended reference range Performed By: #### C AION ####[facility] ,#### HEPATIC, BMP, PHOS, MG, TSH3, HS TROP, CBC, LACTIC, PT, PTT ####[place] [id number] [address] Potassium [Moles/Vol] 3.4 mmol/L Low 3.5-5.1 [facility] Comment on above: Performed By: #### C AION ####[facility] ,#### HEPATIC, BMP, PHOS, MG, TSH3, HS TROP, CBC, LACTIC, PT, PTT ####[address] Sodium [Moles/Vol] 126 mmol/L Low 136-[address] [facility] Comment on above: Performed By: #### C AION ####[facility] ,#### HEPATIC, BMP, PHOS, MG, TSH3, HS TROP, CBC, LACTIC, PT, PTT ####[address] Urea nitrogen [Mass/Vol] 27 mg/dL High 9-23 [facility] Comment on above: Performed By: #### C AION ####[facility] ,#### HEPATIC, BMP, PHOS, MG, TSH3, HS TROP, CBC, LACTIC, PT, PTT ####[address] CBC AUTO DIFFon 12-04-2021 BASO # 0.0 103/ul Normal 0.0-0.1 [facility] Comment on above: Performed By: #### H STROPN, CMP #### [facility] [address] [place] [address] Dr. Debra Blake Basophils/100 WBC (Bld) 0.4 % Normal 0.2-2.0 [facility] Comment on above: Performed By: #### H KINGSTONPN, CMP #### [facility] [address] [place] [address] [address] Debra Blake EO # 0.1 103/ul Normal 0.0-0.7 [facility] Comment on above: Performed By: #### H STROPN, CMP #### [facility] [address] [place] [address] Dr. Debra Blake Eosinophils/100 WBC (Bld) 1.3 % Normal 0.9-7.0 [facility] Comment on above: Performed By: #### H STROPN, CMP #### [facility] [address] [place] [address] Dr. Debra Blake Erythrocyte distribution width (RBC) [Ratio] 14.6 % Normal 11.0-15.0 [facility] Comment on above: Performed By: #### H STROPN, CMP #### [facility] [address] [place] [address] Dr. Debra Blake Hematocrit (Bld) [Volume fraction] 24.6 % Critically low 36.0-48.0 [facility] Comment on above: Performed By: #### H STROPN, CMP #### [facility] [address] [place] [address] Dr. Debra Blake Hemoglobin (Bld) [Mass/Vol] 8.6 g/dL Critically low 12.0-16.0 [facility] Comment on above: Performed By: #### H STROPN, CMP #### [facility] [address] [place] [address] Dr. Debra Blake IG # 0.04 10e3/ul Critically high 0.00-0.03 [facility] Comment on above: Performed By: #### H STROPN, CMP #### [facility] [address] [place] [address] Dr. Debra Blake IG % 0.6 % Critically high 0.0-0.5 [facility] Comment on above: Performed By: #### H STROPN, CMP #### [facility] [address] [place] [address] Dr. Debra Blake LYMPH # 1.3 103/ul Normal 1.2-3.8 [facility] Comment on above: Performed By: #### H STROPN, CMP #### [facility] [address] [address] [address] Debra Blake Lymphocytes/100 WBC (Bld) 19.7 % Critically low 20.5-60.0 [facility] Comment on above: Performed By: #### H STROPN, CMP #### [facility] [address] [address] [address] Debra Blake MANUAL DIFF REQ NO Normal [facility] Comment on above: Performed By: #### H STROPN, CMP #### [facility] [address] [place] [address] Dr. Debra Blake MCH (RBC) [Entitic mass] 34.3 pg Critically high 26.7-3 4.0 [facility] Comment on above: Performed By: #### H STROPN, CMP #### [facility] [address] [place] [address] Dr. Debra Blake MCHC (RBC) [Mass/Vol] 35.0 g/dL Normal 29.9-35.2 [facility] Comment on above: Performed By: #### H STROPN, CMP #### [facility] [address] [place] [address] Dr. Debra Blake MCV (RBC) [Entitic vol] 98.0 fL Normal 81.0-99.0 [facility] Comment on above: Performed By: #### H STROPN, CMP #### [facility] [address] [place] [address] Dr. Debra Blake MONO # 0.9 103/ul Critically high 0.3-0.8 [facility] Comment on above: Performed By: #### H STROPN, CMP #### [facility] [address] [place] [address] Dr. Debra Blake Monocytes/100 WBC (Bld) 12.7 % Critically high 1.7-12. 0 [facility] Comment on above: Performed By: #### H STROPN, CMP #### [facility] [address] [place] [address] Dr. Debra Blake NEUT # 4.4 103/ul Normal 1.4-6.5 [facility] Comment on above: Performed By: #### H STROPN, CMP #### [facility] [address] [address] [address] Debra Blake Neutrophils/100 WBC (Bld) 65.3 % Normal 43.0-75.0 [facility] Comment on above: Performed By: #### H STROPN, CMP #### [facility] [address] [place] [address] Dr. Debra Blake Platelet mean volume (Bld) [Entitic vol] 9.0 fL Critically low 9.5-13.5 [facility] Comment on above: Performed By: #### H STROPN, CMP #### [facility] [address] [place] [address] Dr. Debra Blake PLT 142 103/ul Critically low 150-450 [facility] Comment on above: Performed By: #### H STROPN, CMP #### [facility] [address] [place] [address] Dr. Debra Blake RBC 2.51 106/ul Critically low 4.20-5.40 [facility] Comment on above: Performed By: #### H STROPN, CMP #### [facility] [address] [place] [address] Dr. Debra Blake WBC 6.8 103/ul Normal 4.0-11.0 [facility] Comment on above: Performed By: #### H STROPN, CMP #### [facility] [address] [place] [address] Dr. Debra Blake BASO # 0.0 103/ul Normal 0.0-0.1 [facility] Comment on above: Performed By: #### C BC #### [facility] [address] [place] [address] Dr. Debra Blake Basophils/100 WBC (Bld) 0.5 % Normal 0.2-2.0 [facility] Comment on above: Performed By: #### C BC #### [facility] [address] [place] [address] Dr. Debra Blake EO # 0.1 103/ul Normal 0.0-0.7 [facility] Comment on above: Performed By: #### C BC #### [facility] [address] [place] [address] Dr. Debra Blake Eosinophils/100 WBC (Bld) 0.9 % Normal 0.9-7.0 [facility] Comment on above: Performed By: #### C BC #### [facility] [address] [place] [address] Dr. Debra Blake Erythrocyte distribution width (RBC) [Ratio] 14.6 % Normal 11.0-15.0 [facility] Comment on above: Performed By: #### C BC #### [facility] [address] [place] [address] Dr. Debra Blake Hematocrit (Bld) [Volume fraction] 26.2 % Critically low 36.0-48.0 [facility] Comment on above: Performed By: #### C BC #### [facility] [address] [place] [address] Dr. Debra Blake Hemoglobin (Bld) [Mass/Vol] 9.2 g/dL Critically low 12.0-16.0 [facility] Comment on above: Performed By: #### C BC #### [facility] [address] [place] [address] Dr. Debra Blake IG # 0.06 10e3/ul Critically high 0.00-0.03 [facility] Comment on above: Performed By: #### C BC #### [facility] [address] [place] [address] Dr. Debra Blake IG % 0.7 % Critically high 0.0-0.5 [facility] Comment on above: Performed By: #### C BC #### [facility] [address] [place] [address] Dr. Debra Blake LYMPH # 1.3 103/ul Normal 1.2-3.8 [facility] Comment on above: Performed By: #### C BC #### [facility] [address] [place] [address] Dr. Debra Blake Lymphocytes/100 WBC (Bld) 15.7 % Critically low 20.5-60.0 [facility] Comment on above: Performed By: #### C BC #### [facility] [address] [place] [address] Dr. Debra Blake MANUAL DIFF REQ NO Normal [facility] Comment on above: Performed By: #### C BC #### [facility] [address] [place] [address] Dr. Debra Blake MCH (RBC) [Entitic mass] 34.2 pg Critically high 26.7-3 4.0 [facility] Comment on above: Performed By: #### C BC #### [facility] [address] [place] [address] Dr. Debra Blake MCHC (RBC) [Mass/Vol] 35.1 g/dL Normal 29.9-35.2 [facility] Comment on above: Performed By: #### C BC #### [facility] [address] [place] [address] Dr. Derba Blake MCV (RBC) [Entitic vol] 97.4 fL Normal 81.0-99.0 [facility] Comment on above: Performed By: #### C BC #### [facility] [address] [place] [address] Dr. Debra Blake MONO # 1.1 103/ul Critically high 0.3-0.8 [facility] Comment on above: Performed By: #### C BC #### [facility] [address] [place] [address] Dr. Debra Blake Monocytes/100 WBC (Bld) 13.3 % Critically high 1.7-12. 0 [facility] Comment on above: Performed By: #### C BC #### [facility] [address] [place] [address] Dr. Debra Blake NEUT # 5.6 103/ul Normal 1.4-6.5 [facility] Comment on above: Performed By: #### C BC #### [facility] [address] [place] [address] Dr. Debra Blake Neutrophils/100 WBC (Bld) 68.9 % Normal 43.0-75.0 [facility] Comment on above: Performed By: #### C BC #### [facility] [address] [address] [address] Debra Blake Platelet mean volume (Bld) [Entitic vol] 9.2 fL Critically low 9.5-13.5 [facility] Comment on above: Performed By: #### C BC #### [facility] [address] [address] [address] Debra Blake PLT 179 103/ul Normal 150-450 [facility] Comment on above: Performed By: #### C BC #### [facility] [address] [address] [address] Debra Blake RBC 2.69 106/ul Critically low 4.20-5.40 [facility] Comment on above: Performed By: #### C BC #### [facility] [address] [address] [address] Debra Blake WBC 8.1 103/ul Normal 4.0-11.0 [facility] Comment on above: Performed By: #### C BC #### [facility] [address] [address] [address] Debra Blake Complete Blood Count Auto Di ffon 12-04-2021 Basophils (Bld) [#/Vol] 0.0 10*3/uL Normal 0.0-0.2 [facility] Comment on above: Result Comment: PERF ORMED BY: [place] [address] PATHOLOGIST TRAFFIC I MANAGER BRITTNY SELLERS M.D. Performed By: #### C AION #### [facility] , #### HEPATIC, BMP, PHOS, MG, TSH3, HS TROP, CBC, LACTIC, PT, PTT #### [place] [address] [place] Basophils/100 WBC (Bld) 0.4 % Normal . [facility] Comment on above: Performed By: #### C AION #### [facility] , #### HEPATIC, BMP, PHOS, MG, TSH3, HS TROP, CBC, LACTIC, PT, PTT #### [address] Eosinophils (Bld) [#/Vol] 0.1 10*3/uL Normal 0.0-0.45 [facility] Comment on above: Performed By: #### C AION #### [facility] , #### HEPATIC, BMP, PHOS, MG, TSH3, HS TROP, CBC, LACTIC, PT, PTT #### [address] Eosinophils/100 WBC (Bld) 1.2 % Normal . [facility] Comment on above: Performed By: #### C AION #### [facility] , #### HEPATIC, BMP, PHOS, MG, TSH3, HS TROP, CBC, LACTIC, PT, PTT #### [address] Erythrocyte distribution width (RBC) [Ratio] 16.3 % High 11.9-15.3 [facility] Comment on above: Performed By: #### C AION #### [facility] , #### HEPATIC, BMP, PHOS, MG, TSH3, HS TROP, CBC, LACTIC, PT, PTT #### [address] Hematocrit (Bld) [Volume fraction] 26.2 % Low 34.0-46.4 [facility] Comment on above: Performed By: #### C AION #### [facility] , #### HEPATIC, BMP, PHOS, MG, TSH3, HS TROP, CBC, LACTIC, PT, PTT #### [address] Hemoglobin (Bld) [Mass/Vol] 8.8 g/dL Low 11.8-15.4 [facility] Comment on above: Performed By: #### C AION #### [facility] , #### HEPATIC, BMP, PHOS, MG, TSH3, HS TROP, CBC, LACTIC, PT, PTT #### [address] Lymphocytes (Bld) [#/Vol] 0.8 10*3/uL Low 1.00-4.8 [facility] Comment on above: Performed By: #### C AION #### [facility] , #### HEPATIC, BMP, PHOS, MG, TSH3, HS TROP, CBC, LACTIC, PT, PTT #### [address] Lymphocytes/100 WBC (Bld) 13.0 % Normal . [facility] Comment on above: Performed By: #### C AION #### [facility] , #### HEPATIC, BMP, PHOS, MG, TSH3, HS TROP, CBC, LACTIC, PT, PTT #### [address] MCH (RBC) [Entitic mass] 34.3 pg Normal 24.7-34.3 [facility] Comment on above: Performed By: #### C AION #### [facility] , #### HEPATIC, BMP, PHOS, MG, TSH3, HS TROP, CBC, LACTIC, PT, PTT #### [address] MCV (RBC) [Entitic vol] 101.7 fL High 80-100 [facility] Comment on above: Performed By: #### C AION #### [facility] , #### HEPATIC, BMP, PHOS, MG, TSH3, HS TROP, CBC, LACTIC, PT, PTT #### [address] Mean Corpuscular HGB Conc 33.7 g/dL Normal 32.0-35.0 [facility] Comment on above: Performed By: #### C AION #### [facility] , #### HEPATIC, BMP, PHOS, MG, TSH3, HS TROP, CBC, LACTIC, PT, PTT #### [facility] [address] [place] [address] [place] Monocytes (Bld) [#/Vol] 0.9 10*3/uL High 0.0-0.8 [facility] Comment on above: Performed By: #### C AION #### [facility] , #### HEPATIC, BMP, PHOS, MG, TSH3, HS TROP, CBC, LACTIC, PT, PTT #### [facility] [address] [place] [address] [place] Monocytes/100 WBC (Bld) 13.9 % Normal . [facility] Comment on above: Performed By: #### C AION #### [facility] , #### HEPATIC, BMP, PHOS, MG, TSH3, HS TROP, CBC, LACTIC, PT, PTT #### [place] [address] [place] Neutrophils (Bld) [#/Vol] 4.5 10*3/uL Normal 1.8-7.7 [facility] Comment on above: Performed By: #### C AION #### [facility] , #### HEPATIC, BMP, PHOS, MG, TSH3, HS TROP, CBC, LACTIC, PT, PTT #### [place] [address] [place] Neutrophils/100 WBC (Bld) 71.5 % Normal . [facility] Comment on above: Performed By: #### C AION #### [facility] , #### HEPATIC, BMP, PHOS, MG, TSH3, HS TROP, CBC, LACTIC, PT, PTT #### [facility] [address] [place] [address] [place] Nucleated RBC/100 WBC (Bld) [Ratio] 0.1 % Normal 0-0.5 [facility] Comment on above: Performed By: #### C AION #### [facility] , #### HEPATIC, BMP, PHOS, MG, TSH3, HS TROP, CBC, LACTIC, PT, PTT #### [address] Platelet mean volume (Bld) [Entitic vol] 7.0 fL Normal 6.3-10.7 [facility] Comment on above: Performed By: #### C AION #### [facility] , #### HEPATIC, BMP, PHOS, MG, TSH3, HS TROP, CBC, LACTIC, PT, PTT #### [address] Platelets (Bld) [#/Vol] 184 10*3/uL Normal 150-450 [facility] Comment on above: Performed By: #### C AION #### [facility] , #### HEPATIC, BMP, PHOS, MG, TSH3, HS TROP, CBC, LACTIC, PT, PTT #### [address] RBC (Bld) [#/Vol] 2.58 10*6/uL Low 3.60-5.00 [facility] Comment on above: Performed By: #### C AION #### [facility] , #### HEPATIC, BMP, PHOS, MG, TSH3, HS TROP, CBC, LACTIC, PT, PTT #### [address] WBC (Bld) [#/Vol] 6.3 10*3/uL Normal 4.5-11.[address] [facility] Comment on above: Performed By: #### C AION #### [facility] , #### HEPATIC, BMP, PHOS, MG, TSH3, HS TROP, CBC, LACTIC, PT, PTT #### [address] Creatine Kinaseon 12-04-2021 CK [Catalytic activity/Vol] 140 U/L Normal 22-269 [facility] Comment on above: Performed By: #### V ITB1 #### [facility] , #### PAB, [id number], A1C WT eA #### [facility] [address] [place] [address] Creatine kinase [Enzymatic a ctivity/volume] in Serum or PlasmaOrdered By: Hong Mcintosh on 12-04-2021 CK [Catalytic activity/Vol] 140 U/L 22 [facility] Creatinine Kinase MBon 12-04 CK.MB [Mass/Vol] 2.0 ng/mL Normal 0.6-6.3 [facility] Comment on above: Performed By: #### V ITB1 #### [facility] , #### PAB, [id number], A1C WT eA #### [facility] [address] [place] [address] CKMB Relative Index 1.4 % Normal 0.00-2.50 [facility] Comment on above: Result Comment: PERF ORMED BY: [place] [address] PATHOLOGIST TRAFFIC I MANAGER BRITTNY SELLERS M.D. Performed By: #### V ITB1 #### [facility] , #### PAB, [id number], A1C WT eA #### [facility] [address] [place] [address] Direct bilirubin measurement Ordered By: Hong Mcitnosh on 12-04-2021 Bilirubin.direct [Mass/Vol] 0.2 mg/dL 0.0-0.4 [facility] ECG 12 lead ECGon 12-04-2021 ECG 12 lead ECG [facility] Main [place] [address] [place] [address] Electrocardiograph Report Signed Patient: Juanita Redman MR#: [id number] : 1965 Acct:[id number] Age/Sex: 56 / F ADM Date: 12/04/21 Loc: Room: [address] [place] [address] Type: DIS IN Attending Dr: Hong Mcintosh DO Ordering Provider: Hong Mcintosh DO Date of Service: 12/04/21 ECG/ECG 12 lead ECG: elevated troponin Copies to: Test Reason : Blood Pressure : / mmHG Vent. Rate : 062 BPM Atrial Rate : 062 BPM P-R Int : 182 ms QRS Dur : 070 ms QT Int : 486 ms P-R-T Axes : 053 007 010 degrees QTc Int : 493 ms Normal sinus rhythm Nonspecific ST abnormality Prolonged QT Abnormal ECG No previous ECGs available Confirmed by LUCINA BLAIR [facility] ([id number] on 12/06/2021 1:18:24 PM Referred By: Electronically Signed By:KYLAH KINGSLEY MD [facility] Transcribed By: MUS Signed By Kylah Kingsley MD, FAC 12/06/21 1318 [facility] echo transthoracicon [facility] echo transthoracic [facility] [place] [address] Echocardiogram Signed Patient: Juanita Redman MR#: [id number] : 1965 Acct:[id number] Age/Sex: 56 / F ADM Date: 12/04/21 Loc: Room: [address] [place] [address] Type: DIS IN Attending Dr: Hong Mcintosh DO Ordering Provider: Hong Mcintosh DO Date of Service: 12/04/21 [facility] echo transthoracic: dyspnea, dizziness Copies to: Kylah Kingsley MD, FACC Hong Mcintosh DO Weight: 168 lb Performed By: JADA Capone BSA: 1.8 m2 BP: 112/69 mmHg HR: 69 Reason For Study: dyspnea, dizziness History: alcohol abuse, anemia, COPD, HTN, NH, SVT, non-compliance Interpretation Summary The left ventricular size, thickness and function are normal Ejection Fraction = 60-65%. There is mild tricuspid regurgitation. The right ventricular systolic pressure is 48 mmHg. Right ventricular systolic pressure is consistent with mild to moderate pulmonary hypertension. There is no prior echocardiogram noted for this patient. Procedure/Quality: A two-dimensional transthoracic echocardiogram with color flow and Doppler was performed. The study was technically good in quality. There is no prior echocardiogram noted for this patient. Left Ventricle: The left ventricular size, thickness and function are normal. Ejection Fraction = 60-65%. Left Atrium: The left atrium appears normal in size. The atrial septum appears normal. Right Atrium: The right atrium appears normal in size. Right Ventricle: The right ventricular size, thickness and function are normal. Aortic Valve: The aortic valve is trileaflet. Mitral Valve: The mitral valve is mildly sclerotic. There is mild mitral annular calcification. Tricuspid Valve: The tricuspid valve is normal. There is mild tricuspid regurgitation. The right ventricular systolic pressure is 48 mmHg. Right ventricular systolic pressure is consistent with mild to moderate pulmonary hypertension. Pulmonic Valve: The pulmonic valve is not well seen, but is grossly normal. Arteries: The aortic root is normal size. Pericardium/Pleura: No pericardial effusion seen. There is no pleural effusion. IVC/Hepatic Viens: The IVC is normal in size with an inspiratory collapse of greater then 50%, suggesting normal right atrial pressure. Miscellaneous: No thrombus, vegetation or mass is seen. Measurements with Normals IVSd: 1.1 cm (0.7-1.1 cm)LVIDd: 4.3 cm (3.7-5.4 cm) LVPWd: 0.94 cm (0.7-1.1 cm)LVIDs: 2.7 cm (2.3-3.6 cm) LA dimension: 3.9 cm(2.3-4.0 cm)Ao root diam: 2.8 cm(2.0-3.6 cm) Doppler with Normals RVSP(TR): 48.0 mmHg (18-35mmHg) MV E max jade: 86.1 cm/sec(0.8-1.3m/s) MV A max jade: 41.1 cm/sec(0.0-0.0m/s) MV E/A: 2.1 (<1.5) MMode/2D Measurements Calculations RVDd: 3.1 cm FS: 38.3 % Ao root area: LAV(MOD-sp4): TAPSE: 3.2 cm EDV(Teich): 6.1 cm2 41.0 ml RV S Jade: 9.8 cm/sec 83.0 ml ESV(Teich): 25.8 ml EF(Teich): 68.9 % __ LA A4 area: 15.6 cm2 LA length (vol): 4.9 cm Doppler Measurements Calculations MV dec time: 0.37 sec E/E' lat: MV dec slope: TV max P.7 38.0 mmHg E/E' med: 230.7 cm/sec2 13.6 __ TR max jade: 308.1 cm/sec TR max P.0 mmHg RAP systole: 10.0 mmHg Transcribed By: SCV Performed At: 12/04/21 1235 Signed By: Kylah Kingsley MD, [facility] 12/05/21 1129 Normal [facility] Folate [Mass/volume] in Seru m or PlasmaOrdered By: Hong Mcintosh on 12-04-2021 Folate [Mass/Vol] 5.1 ng/mL >5.9 [facility] Comment on above: Folate reference ran ge: >5.9 ng/ml The WHO technical consultation on folate and vitamin b12 deficiencies has determined that folate concentrations less than 4 ng/ml are considered deficient. Globulin Calc (S) [Mass/Vol] Ordered By: Hong Mcintosh on 12-04-2021 Globulin (S) [Mass/Vol] 3.2 g/dL [facility] Glucose mean value [Mass/vol ume] in Blood Estimated from glycated hemoglobinOrdered By: Hong Mcintosh on 12-04-2021 Average glucose Estimated from glycated hemoglobin (Bld) [Mass/Vol] 97 mg/dL [facility] Hemoglobin A1c percentageOrd ered By: Hong Mcintosh on 12-04-2021 HbA1c (Bld) [Mass fraction] 5.0 % 4.3-5.6 [facility] Comment on above: Increased risk for d iabetes: 5.7 - 6.4 diabetes: >6.4 glycemic control for adults with diabetes: <7.0 Hepatic Panelon 12-04-2021 Albumin [Mass/Vol] 3.0 g/dL Low 3.2-5.[address] [facility] Comment on above: Performed By: #### C AION ####[facility] ,#### HEPATIC, BMP, PHOS, MG, TSH3, HS TROP, CBC, LACTIC, PT, PTT ####[place] [id number] [facility] Albumin/Globulin [Mass ratio] 0.9 {ratio} Normal [facility] Comment on above: Performed By: #### C AION ####[facility] ,#### HEPATIC, BMP, PHOS, MG, TSH3, HS TROP, CBC, LACTIC, PT, PTT ####[address] [address] [facility] ALP [Catalytic activity/Vol] 51 U/L Normal 32-92 [facility] Comment on above: Performed By: #### C AION ####[facility] ,#### HEPATIC, BMP, PHOS, MG, TSH3, HS TROP, CBC, LACTIC, PT, PTT ####[address] [address] [facility] ALT [Catalytic activity/Vol] 8 U/L Low 10-60 [facility] Comment on above: Performed By: #### C AION ####[facility] ,#### HEPATIC, BMP, PHOS, MG, TSH3, HS TROP, CBC, LACTIC, PT, PTT ####[address] [address] [facility] AST [Catalytic activity/Vol] 15 U/L Normal 10-42 [facility] Comment on above: Performed By: #### C AION ####[facility] ,#### HEPATIC, BMP, PHOS, MG, TSH3, HS TROP, CBC, LACTIC, PT, PTT ####[address] Bilirubin [Mass/Vol] 0.8 mg/dL Normal 0.3-1.2 [facility] Comment on above: Performed By: #### C AION ####[facility] ,#### HEPATIC, BMP, PHOS, MG, TSH3, HS TROP, CBC, LACTIC, PT, PTT ####[address] Bilirubin,Indirect 0.6 mg/dL Normal [facility] Comment on above: Performed By: #### C AION ####[facility] ,#### HEPATIC, BMP, PHOS, MG, TSH3, HS TROP, CBC, LACTIC, PT, PTT ####[address] Bilirubin.indirect [Mass/Vol] 0.2 mg/dL Normal 0.0-0.4 [facility] Comment on above: Performed By: #### C AION ####[facility] ,#### HEPATIC, BMP, PHOS, MG, TSH3, HS TROP, CBC, LACTIC, PT, PTT ####[address] Globulin (S) [Mass/Vol] 3.2 g/dL Normal [facility] Comment on above: Performed By: #### C AION ####[facility] ,#### HEPATIC, BMP, PHOS, MG, TSH3, HS TROP, CBC, LACTIC, PT, PTT ####[address] Protein [Mass/Vol] 6.2 g/dL Normal 6.1-7.[address] [facility] Comment on above: Performed By: #### C AION ####[facility] ,#### HEPATIC, BMP, PHOS, MG, TSH3, HS TROP, CBC, LACTIC, PT, PTT ####[place] [id number] Ionized Calciumon 12-04-2021 Ionized Calcium 3.5 mg/dL Low 4.5-5.6 [facility] Comment on above: Result Comment: Perf ormed at: - [facility] [address] [id number] Fuel Operator: Sanford Mehta PhD, Phone: [phone] PERFORMED BY: [place] [address] PATHOLOGIST TRAFFIC I MANAGER BRITTNY SELLERS M.D. Performed By: #### C AION ####[facility] ,#### HEPATIC, BMP, PHOS, MG, TSH3, HS TROP, CBC, LACTIC, PT, PTT ####[address] Laboratory - Chemistry and C hemistry - challengeOrdered By: Hong Mcintosh on 12-04-2021 Cobalamin (Vitamin B12) [Mass/Vol] 520 pg/mL 180-914 [facility] Laboratory - CoagulationOrde red By: Hong Mcintosh on 12-04-2021 PT Coag (PPP) [Time] 12.2 s 9.0-12.9 [facility] Lactic Acidon 12-04-2021 Lactate [Moles/Vol] 1.3 mmol/L Normal 0.5-2.2 [facility] Comment on above: Result Comment: PERF ORMED BY: [place] [address] PATHOLOGIST TRAFFIC I MANAGER BRITTNY SELLERS M.D. Performed By: #### C AION #### [facility] , #### HEPATIC, BMP, PHOS, MG, TSH3, HS TROP, CBC, LACTIC, PT, PTT #### [address] MAGNESIUMon 12-04-2021 Magnesium [Mass/Vol] 1.1 mg/dL Critically low 1.8-2.4 [facility] Comment on above: Performed By: #### H STROPN #### [facility] Laboratory [address] [place] [address] Dr. Debra Blake Magnesium [Mass/Vol] 0.6 mg/dL Critically low 1.8-2.4 [facility] Comment on above: Performed By: #### H STROPN, CMP #### [facility] Laboratory [address] [place] [address] Dr. Debra Blake Magnesiumon 12-04-2021 Magnesium [Mass/Vol] 0.9 mg/dL Off scale low 1.6-2.6 [facility] Comment on above: Result Comment: Resu lts called at 1318 on 12/04/21 Performed By: #### C AION ####[facility] ,#### HEPATIC, BMP, PHOS, MG, TSH3, HS TROP, CBC, LACTIC, PT, PTT ####[facility] [id number] [id number] [facility] PROF 14(COMP METB)on 022 Albumin [Mass/Vol] 2.7 g/dL Critically low 3.4-5.0 Th e [facility] Comment on above: Performed By: #### H STROPN #### [facility] Laboratory [address] [place] [address] Dr. Debra Blake Albumin/Globulin [Mass ratio] 0.8 {ratio} Normal [facility] Comment on above: Performed By: #### H STROPN #### [facility] Laboratory [address] [place] [address] Dr. Debra Blake ALP [Catalytic activity/Vol] 57 U/L Normal 46-116 [facility] Comment on above: Performed By: #### H STROPN #### [facility] Laboratory [address] [place] [address] Dr. Debra Blake ALT [Catalytic activity/Vol] 7 U/L Critically low 14-59 [facility] Comment on above: Performed By: #### H STROPN #### [facility] Laboratory [address] [address] [address] Debra Blake Anion gap [Moles/Vol] 17.3 mmol/L Normal [facility] Comment on above: Performed By: #### H STROPN #### [facility] Laboratory [address] [address] [address] Debra Blake AST [Catalytic activity/Vol] 14 U/L Critically low 15-37 [facility] Comment on above: Performed By: #### H STROPN #### [facility] Laboratory [address] [address] [address] Debra Blake Bilirubin [Mass/Vol] 0.6 mg/dL Normal 0.2-1.0 [facility] Comment on above: Performed By: #### H STROPN #### [facility] Laboratory [address] [address] [address] Debra Blake Calcium [Mass/Vol] 5.8 mg/dL Critically low 8.5-10.1 [facility] Comment on above: Result Comment: Test Repeated. Critical Value Verified Performed By: #### H STROPN #### [facility] Laboratory [address] [address] [address] Debra Blake Chloride [Moles/Vol] 94 mmol/L Critically low 98-107 [facility] Comment on above: Performed By: #### H STROPN #### [facility] Laboratory [address] [address] [address] Debra Blake CO2 [Moles/Vol] 17.7 mmol/L Critically low 21.0-32.0 [facility] Comment on above: Performed By: #### H STROPN #### [facility] Laboratory [address] [address] [address] Debra Blake Creatinine [Mass/Vol] 2.48 mg/dL Critically high 0.55-1.02 [facility] Comment on above: Performed By: #### H STROPN #### [facility] Laboratory [address] [address] [address] Debra Blake EGFR-AF SAMOAN 24 mL/min/1.73m2 Critically low >=60 [facility] Comment on above: Performed By: #### H STROPN #### [facility] Laboratory [address] [address] [address] Debra Blake EGFR-NON AF SAMOAN 20 mL/min/1.73m2 Critically low >=60 [facility] Comment on above: Performed By: #### H STROPN #### [facility] Laboratory [address] [address] [address] Debra Blake Globulin (S) [Mass/Vol] 3.2 g/dL Normal [facility] Comment on above: Performed By: #### H STROPN #### [facility] Laboratory [address] [address] [address] Debra Blake Glucose [Mass/Vol] 108 mg/dL Critically high 74-106 [facility] Comment on above: Performed By: #### H STROPN #### [facility] Laboratory [address] [address] [address] Debra Blake Potassium [Moles/Vol] 3.0 mmol/L Critically low 3.5-5.1 [facility] Comment on above: Performed By: #### H STROPN #### [facility] [address] [address] [address] Debra Blake Protein [Mass/Vol] 5.9 g/dL Critically low 6.4-8.2 [facility] Comment on above: Performed By: #### H STROPN #### [facility] [address] [address] [address] Debra Blake Sodium [Moles/Vol] 126 mmol/L Critically low 136-145 [facility] Comment on above: Performed By: #### H STROPN #### [facility] [address] [address] [address] Debra Blake Urea nitrogen [Mass/Vol] 29.0 mg/dL Critically high 7.0-18 .0 [facility] Comment on above: Performed By: #### H STROPN #### [facility] [address] [address] [address] Debra Blake Urea nitrogen/Creatinine [Mass ratio] 11.7 mg/mg Normal [facility] Comment on above: Performed By: #### H STROPN #### [facility] [address] [address] [address] Debra Blake Albumin [Mass/Vol] 3.1 g/dL Critically low 3.4-5.0 [facility] Comment on above: Performed By: #### H STROPN, CMP #### [facility] [address] [address] [address] Debra Blake Albumin/Globulin [Mass ratio] 0.8 {ratio} Normal [facility] Comment on above: Performed By: #### H STROPN, CMP #### [facility] [address] [address] [address] Debra Blake ALP [Catalytic activity/Vol] 65 U/L Normal 46-116 [facility] Comment on above: Performed By: #### H STROPN, CMP #### [facility] [address] [address] [address] Debra Blake ALT [Catalytic activity/Vol] 9 U/L Critically low 14-59 [facility] Comment on above: Performed By: #### H STROPN, CMP #### [facility] [address] [address] [address] Debra Blake Anion gap [Moles/Vol] 17.3 mmol/L Normal [facility] Comment on above: Performed By: #### H STROPN, CMP #### [facility] [address] [address] [address] Debra Blake AST [Catalytic activity/Vol] 17 U/L Normal 15-37 [facility] Comment on above: Performed By: #### H STROPN, CMP #### [facility] [address] [address] [address] Debra Blake Bilirubin [Mass/Vol] 0.8 mg/dL Normal 0.2-1.0 [facility] Comment on above: Performed By: #### H STROPN, CMP #### [facility] [address] [address] [address] Debra Blake Calcium [Mass/Vol] 5.8 mg/dL Critically low 8.5-10.1 [facility] Comment on above: Result Comment: Test Repeated. Critical Value Verified Performed By: #### H KINGSTONPN, CMP #### [facility] Laboratory [address] [place] [address] Dr. Debra Blake Chloride [Moles/Vol] 91 mmol/L Critically low 98-107 [facility] Comment on above: Performed By: #### H KINGSTONPN, CMP #### [facility] Laboratory [address] [place] [address] Dr. Debra Blake CO2 [Moles/Vol] 19.6 mmol/L Critically low 21.0-32.0 [facility] Comment on above: Performed By: #### H KINGSTONPN, CMP #### [facility] Laboratory [address] [place] [address] Dr. Debra Blake Creatinine [Mass/Vol] 2.66 mg/dL Critically high 0.55-1.02 [facility] Comment on above: Performed By: #### H GARY, CMP #### [facility] Laboratory [address] [place] [address] Dr. Debra Blake EGFR-AF SAMOAN 22 mL/min/1.73m2 Critically low >=60 [facility] Comment on above: Performed By: #### H GARY, CMP #### [facility] Laboratory [address] [place] [address] Dr. Debra Blake EGFR-NON AF SAMOAN 18 mL/min/1.73m2 Critically low >=60 [facility] Comment on above: Performed By: #### H KINGSTONPN, CMP #### [facility] [address] [place] [address] Dr. Debra Blake Globulin (S) [Mass/Vol] 3.7 g/dL Normal [facility] Comment on above: Performed By: #### H KINGSTONPN, CMP #### [facility] [address] [place] [address] Dr. Debra Blake Glucose [Mass/Vol] 106 mg/dL Normal 74-106 [facility] Comment on above: Performed By: #### H KINGSTONPN, CMP #### [facility] [address] [place] [address] Dr. Debra Blake Potassium [Moles/Vol] 2.8 mmol/L Critically low 3.5-5.1 [facility] Comment on above: Result Comment: Test Repeated. Critical Value Verified Performed By: #### H GARY, CMP #### [facility] [address] [address] [address] Debra Blake Protein [Mass/Vol] 6.8 g/dL Normal 6.4-8.2 [facility] Comment on above: Performed By: #### H GARY, CMP #### [facility] [address] [address] [address] Debra Blake Sodium [Moles/Vol] 123 mmol/L Critically low 136-145 [facility] Comment on above: Result Comment: Test Repeated. Critical Value Verified Performed By: #### H GARY, CMP #### [facility] [address] [place] [address] Dr. Debra Blake Urea nitrogen [Mass/Vol] 29.0 mg/dL Critically high 7.0-18 .0 [facility] Comment on above: Performed By: #### H GARY, CMP #### [facility] [address] [address] [address] Debra Blake Urea nitrogen/Creatinine [Mass ratio] 10.9 mg/mg Normal [facility] Comment on above: Performed By: #### H GARY, CMP #### [facility] [address] [place] [address] Dr. Debra Blake Partial Thromboplastin Timeo n 12-04-2021 aPTT Coag (Bld) [Time] 29.9 s Normal 25.1-36.5 [facility] Comment on above: Result Comment: PERF ORMED BY: [facility] [address] [place] [address] PATHOLOGIST TRAFFIC I MANAGER BRITTNY SELLERS M.D. Performed By: #### C AION ####[facility] ,#### HEPATIC, BMP, PHOS, MG, TSH3, HS TROP, CBC, LACTIC, PT, PTT ####[facility] [id number] Phosphate [Mass/volume] in S lydia or PlasmaOrdered By: Hong Mcintosh on 12-04-2021 Phosphate [Mass/Vol] 3.6 mg/dL 2.5-4.6 [facility] Phosphoruson 12-04-2021 Phosphate [Mass/Vol] 3.6 mg/dL Normal 2.5-4.6 [facility] Comment on above: Performed By: #### C AION ####[facility] ,#### HEPATIC, BMP, PHOS, MG, TSH3, HS TROP, CBC, LACTIC, PT, PTT ####[facility] Platelet poor plasma interna tional normalized ratio (INR) by coagulation assay (relatOrdered By: Hong Mcintosh on 12-04-2021 INR Coag (PPP) [Relative time] 1.1 {INR} [facility] Comment on above: INR Therapeutic Rang e A) Pre- and Peroperative OAT started two weeks before surgery. NOT HIP SURGERY: 1.5 - 2.5 HIP SURGERY: 2 - 3 B) Primary and secondary prevention of venous THROMBOSIS: 2 - 3 C) Active venous thrombosis, pulmonary embolism and prevention of recurrent venous thrombosis: 2 - 3 D) Prevention of arterial thromboembolism including patients with mechanical heart valves: 3 - 4.5 Prealbuminon 12-04-2021 Prealbumin [Mass/Vol] 15.8 mg/dL Low 18.0-38.0 [facility] Comment on above: Performed By: #### V ITB1 #### [facility] , #### PAB, [id number], A1C WTH eA #### [facility] [address] Protein [Mass/volume] in Ser um or PlasmaOrdered By: Hong Mcintosh on 12-04-2021 Protein [Mass/Vol] 6.2 g/dL 6.1-7.[address] [facility] Prothrombin Time INRon 12-04 INR Coag (PPP) [Relative time] 1.1 {INR} Normal [facility] Comment on above: Result Comment: INR Therapeutic Range A) Pre- and Peroperative OAT started two weeks before surgery. NOT HIP SURGERY: 1.5 - 2.5 HIP SURGERY: 2 - 3 B) Primary and secondary prevention of venous THROMBOSIS: 2 - 3 C) Active venous thrombosis, pulmonary embolism and prevention of recurrent venous thrombosis: 2 - 3 D) Prevention of arterial thromboembolism including patients with mechanical heart valves: 3 - 4.5 Performed By: #### C AION ####[facility] ,#### HEPATIC, BMP, PHOS, MG, TSH3, HS TROP, CBC, LACTIC, PT, PTT ####[facility] [id number] [id number] [facility] PT Coag (PPP) [Time] 12.2 s Normal 9.0-12.9 [facility] Comment on above: Performed By: #### C AION ####[facility] ,#### HEPATIC, BMP, PHOS, MG, TSH3, HS TROP, CBC, LACTIC, PT, PTT ####[facility] [id number] [id number] [facility] Serum ionized calcium measur ement using ion specific electrode (mass/volume)Ordered By: Hong Mcintosh on 12-04-2021 Calcium.ionized ISE [Mass/Vol] 3.5 mg/dL 4.5-5.6 [facility] Comment on above: Performed at: [address] [id number] Fuel Operator: Sanford Mehta PhD, Phone: [phone] Serum or plasma alanine orellana otransferase measurement without P-5'-P (enzymatic activiOrdered By: Hong Mcintosh on 12-04-2021 ALT No additional P-5'-P [Catalytic activity/Vol] 8 U/L 10-60 [facility] Serum or plasma albumin/glob ulin mass ratioOrdered By: Hnog Mcintosh on 12-04-2021 Albumin/Globulin [Mass ratio] 0.9 {ratio} [facility] Serum or plasma alkaline lauren sphatase measurement (enzymatic activity/volume)Ordered By: Hong Mcintosh on 12-04-2021 ALP [Catalytic activity/Vol] 51 U/L 32-92 [facility] Serum or plasma aspartate am inotransferase measurement (enzymatic activity/volume)Ordered By: Hong Mcintosh on 12-04-2021 AST [Catalytic activity/Vol] 15 U/L 10-42 [facility] Serum or plasma creatine kin ase MB (CKMB)/total creatine kinase (CK) ratio by calculaOrdered By: Hong Mcintosh on 12-04-2021 CK.MB Calc [Catalytic fraction] 1.4 % 0.00-2.50 [facility] Serum or plasma creatine kin ase MB measurement (mass/volume)Ordered By: Hong Mcintosh on 12-04-2021 CK.MB [Mass/Vol] 2.0 ng/mL 0.6-6.3 [facility] Serum or plasma non-glucuron idated bilirubin measurement (mass/volume)Ordered By: Hong Mcintosh on 12-04-2021 Bilirubin.indirect [Mass/Vol] 0.6 mg/dL [facility] Serum or plasma prealbumin m easurement (mass/volume)Ordered By: Hong Mcintosh on 12-04-2021 Prealbumin [Mass/Vol] 15.8 mg/dL 18.0-38.0 [facility] Serum or plasma total biliru bin measurement (mass/volume)Ordered By: Hong Mcintosh on 12-04-2021 Bilirubin [Mass/Vol] 0.8 mg/dL 0.3-1.2 [facility] TROPONIN, HIGH SENSITIVITYon 12-04-2021 HSTROP 91.0 pg/mL Critically high 4.0-51.3 [facility] Comment on above: Result Comment: CUT- OFF POINTS HAVE BEEN ESTABLISHED BASED ON THE FOURTH UNIVERSAL DEFINITIONS OF MYOCARDIAL INFARCTION. THE UPPER REFERENCE LIMIT (URL) OF TROPONIN, DEFINED THE 99TH PERCENTILE OF cTnI DISTRIBUTION IN A REFERENCE POPULATION, HAS BEEN CONFIRMED THE DECISION THRESHOLD FOR [place] DIAGNOSIS. Performed By: #### H GARY, CMP #### [facility] [address] [address] [address] Debra Blake HSTROP 107.8 pg/mL Critically high 4.0-51.3 [facility] Comment on above: Result Comment: CUT- OFF POINTS HAVE BEEN ESTABLISHED BASED ON THE FOURTH UNIVERSAL DEFINITIONS OF MYOCARDIAL INFARCTION. THE UPPER REFERENCE LIMIT (URL) OF TROPONIN, DEFINED THE 99TH PERCENTILE OF cTnI DISTRIBUTION IN A REFERENCE POPULATION, HAS BEEN CONFIRMED THE DECISION THRESHOLD FOR [place] DIAGNOSIS. Performed By: #### H GARY #### [facility] [address] [address] [address] Debra Blake TSHon 12-04-2021 TSH 0.321 uIU/mL Critically low 0.358-3.74 0 [facility] Comment on above: Performed By: #### H GARY, CMP #### [facility] [address] [address] [address] Debra Blake TSH DL <= 0.005 mIU/L QnOrde red By: Hong Mcintosh on 12-04-2021 TSH Qn 0.39 m[IU]/L 0.45-5.33 [facility] Thyroid Stimulating Hormoneo n 12-04-2021 TSH Qn 0.39 m[IU]/L Low 0.45-5.33 [facility] Comment on above: Result Comment: PERF ORMED BY: [facility] [address] [place] [address] PATHOLOGIST TRAFFIC I MANAGER BRITTNY SELLERS M.D. Performed By: #### C AION ####[facility] ,#### HEPATIC, BMP, PHOS, MG, TSH3, HS TROP, CBC, LACTIC, PT, PTT ####[facility] [id number] [id number] [place] Troponin I High Sensitivityo n 12-04-2021 Troponin I High Sensitivity 46 pg/mL High 0-15 [facility] Comment on above: Result Comment: PERF ORMED BY: [facility] [address] [id number] PATHOLOGIST TRAFFIC I MANAGER BRITTNY SELLERS M.D. Performed By: #### C AION #### [facility] , #### HEPATIC, BMP, PHOS, MG, TSH3, HS TROP, CBC, LACTIC, PT, PTT #### [facility] [address] Troponin I High Sensitivity 53 pg/mL Off scale high 0-15 [facility] Comment on above: Result Comment: Resu lts called at 1346 on 12/04/21 PERFORMED BY: [place] [address] PATHOLOGIST TRAFFIC I MANAGER BRITTNY SELLERS M.D. Performed By: #### C AION ####[facility] ,#### HEPATIC, BMP, PHOS, MG, TSH3, HS TROP, CBC, LACTIC, PT, PTT ####[facility] Urine lactic acid measuremen tOrdered By: Hong Mcintosh on 12-04-2021 Lactate (U) [Moles/Vol] 1.3 mmol/L 0.5-2.2 F [facility] Vit. B12/Folate Profileon Cobalamin (Vitamin B12) [Mass/Vol] 520 pg/mL Normal 180-914 [facility] Comment on above: Performed By: #### V ITB1 #### [facility] , #### PAB, [id number], A1C WTH eA #### [facility] [address] [place] [address] Folate 5.1 ng/mL Low >5.9 [facility] Comment on above: Result Comment: Tammy te reference range: >5.9 ng/ml The WHO technical consultation on folate and vitamin b12 deficiencies has determined that folate concentrations less than 4 ng/ml are considered deficient. PERFORMED BY: [place] [address] PATHOLOGIST TRAFFIC I MANAGER BRITTNY SELLERS M.D. Performed By: #### V ITB1 #### [facility] , #### PAB, [id number], A1C WT eA #### [facility] [address] [place] [address] Vitamin B1 (Thiamine) Bloodo n 12-04-2021 Vitamin B1 (Thiamine) Blood 50.9 Low 66.5-200.0 [facility] Comment on above: Result Comment: Ve rified by repeat analysis This test was developed and its performance characteristics determined by [facility]. It has not been cleared or approved by the Food and Drug Administration. Performed at: [facility] [address] [id number] Fuel Operator: Meli Bishop MD, Phone: [phone] PERFORMED BY: [place] [address] PATHOLOGIST TRAFFIC I MANAGER BRITTNY SELLERS M.D. Performed By: #### V ITB1 #### [facility] , #### PAB, [id number], A1C [facility] eA #### [address] CBC AUTO DIFFon 12-03-2021 BASO # 0.1 103/ul Normal 0.0-0.1 [facility] Comment on above: Performed By: #### H STROPN #### [facility] [address] [place] [address] Dr. Debra Blake Basophils/100 WBC (Bld) 0.6 % Normal 0.2-2.0 [facility] Comment on above: Performed By: #### H STROPN #### [facility] [address] [place] [address] Dr. Debra Blake EO # 0.1 103/ul Normal 0.0-0.7 [facility] Comment on above: Performed By: #### H STROPN #### [facility] [address] [place] [address] Dr. Debra Blake Eosinophils/100 WBC (Bld) 1.5 % Normal 0.9-7.0 [facility] Comment on above: Performed By: #### H STROPN #### [facility] [address] [place] [address] Dr. Debra Blake Erythrocyte distribution width (RBC) [Ratio] 14.6 % Normal 11.0-15.0 [facility] Comment on above: Performed By: #### H STROPN #### [facility] [address] [place] [address] Dr. Debra Blake Hematocrit (Bld) [Volume fraction] 27.4 % Critically low 36.0-48.0 [facility] Comment on above: Performed By: #### H STROPN #### [facility] [address] [place] [address] Dr. Debra Blake Hemoglobin (Bld) [Mass/Vol] 9.7 g/dL Critically low 12.0-16.0 [facility] Comment on above: Performed By: #### H STROPN #### [facility] [address] [place] [address] Dr. Debra Blake IG # 0.08 10e3/ul Critically high 0.00-0.03 [facility] Comment on above: Performed By: #### H STROPN #### [facility] [address] [place] [address] Dr. Debra Blake IG % 0.9 % Critically high 0.0-0.5 [facility] Comment on above: Performed By: #### H STROPN #### [facility] [address] [place] [address] Dr. Debra Blake LYMPH # 1.9 103/ul Normal 1.2-3.8 [facility] Comment on above: Performed By: #### H STROPN #### [facility] [address] [place] [address] Dr. Debra Blake Lymphocytes/100 WBC (Bld) 20.9 % Normal 20.5-60.0 [facility] Comment on above: Performed By: #### H STROPN #### [facility] [address] [place] [address] Dr. Debra Blake MANUAL DIFF REQ NO Normal [facility] Comment on above: Performed By: #### H STROPN #### [facility] [address] [address] [address] Debra Blake MCH (RBC) [Entitic mass] 34.5 pg Critically high 26.7-3 4.0 [facility] Comment on above: Performed By: #### H STROPN #### [facility] [address] [place] [address] Dr. Debra Blake MCHC (RBC) [Mass/Vol] 35.4 g/dL Critically high 29.9-35.2 [facility] Comment on above: Performed By: #### H STROPN #### [facility] [address] [place] [address] Dr. Debra Blake MCV (RBC) [Entitic vol] 97.5 fL Normal 81.0-99.0 [facility] Comment on above: Performed By: #### H STROPN #### [facility] [address] [place] [address] Dr. Debra Blake MONO # 1.3 103/ul Critically high 0.3-0.8 [facility] Comment on above: Performed By: #### H STROPN #### [facility] [address] [place] [address] Dr. Debra Blake Monocytes/100 WBC (Bld) 14.3 % Critically high 1.7-12. 0 [facility] Comment on above: Performed By: #### H STROPN #### [facility] [address] [place] [address] Dr. Debra Blake NEUT # 5.5 103/ul Normal 1.4-6.5 [facility] Comment on above: Performed By: #### H STROPN #### [facility] [address] [place] [address] Dr. Debra Blake Neutrophils/100 WBC (Bld) 61.8 % Normal 43.0-75.0 [facility] Comment on above: Performed By: #### H STROPN #### [facility] [address] [place] [address] Dr. Debra Blake Platelet mean volume (Bld) [Entitic vol] 9.2 fL Critically low 9.5-13.5 [facility] Comment on above: Performed By: #### H STROPN #### [facility] [address] [address] [address] Debra Blake PLT 187 103/ul Normal 150-450 [facility] Comment on above: Performed By: #### H STROPN #### [facility] [address] [address] [address] Debra Blake RBC 2.81 106/ul Critically low 4.20-5.40 [facility] Comment on above: Performed By: #### H STROPN #### [facility] [address] [place] [address] Dr. Debra Blake WBC 8.9 103/ul Normal 4.0-11.0 [facility] Comment on above: Performed By: #### H STROPN #### [facility] [address] [place] [address] Dr. Debra Blake Covid-19 PCR (CVDTBH)on 11-09 SARS-CoV-2 (COVID-19) RNA YVONNE+probe Ql (Unsp spec) Not detected Normal NOT DETECTED The [facility] Comment on above: Result Comment: When diagnostic testing is negative, the possibility of a false negative should be considered in the context of a patient's recent exposures and the presence of clinical signs and symptoms consistent with SARS-CoV-2. This test is not yet approved or cleared by the [place] FDA. When there are no FDA-approved or cleared tests available, and other criteria are met, FDA can make tests available under an emergency access mechanism called an Emergency Use Authorization (EUA). The EUA for this test is supported by the Hand Picker of Health and Human Service's declaration that circumstances exist to justify the emergency use of in vitro diagnostics for the detection and/or diagnosis of the virus that causes COVID-19. This EUA will remain in effect for the duration of the COVID-19 declaration justifying emergency of IVDs, unless it is terminated or revoked by the FDA (after which the test may no longer be used). Performed By: #### C VDTBH #### [facility] [address] [place] [address] Dr. Debra Blkae ER URINE PROFILEon 2 Bilirubin Ql (U) Negative Normal NEGATIVE The [facility] Comment on above: Performed By: #### U MICRO, ERUR #### [facility] [address] [place] [address] Dr. Debra Blake Clarity (U) CLEAR Normal CLEAR The [facility] Comment on above: Performed By: #### U MICRO, ERUR #### [facility] [address] [address] [address] Debra Blake Color (U) LT. YELLOW Normal YELLOW [facility] Comment on above: Performed By: #### U MICRO, ERUR #### [facility] [address] [place] [address] Dr. Debra Blake ERUAHD A micrscopic examina tion will be performed if indicated. Normal The [facility] Comment on above: Performed By: #### U MICRO, ERUR #### [facility] [address] [place] [address] Dr. Debra Blake Glucose Ql (U) Negative Normal NEGATIVE [facility] Comment on above: Performed By: #### U MICRO, ERUR #### [facility] [address] [place] [address] Dr. Debra Blake Hemoglobin Ql (U) TRACE-LYSED Abnormal NEGATIVE [facility] Comment on above: Performed By: #### U MICRO, ERUR #### [facility] [address] [place] [address] Dr. Debra Blake Ketones Ql (U) Negative Normal NEGATIVE [facility] Comment on above: Performed By: #### U MICRO, ERUR #### [facility] [address] [place] [address] Dr. Debra Blake LEUKOCYTES MODERATE Abnormal NEGATIVE [facility] Comment on above: Performed By: #### U MICRO, ERUR #### [facility] [address] [address] [address] Debra Blake Nitrite Ql (U) Negative Normal NEGATIVE [facility] Comment on above: Performed By: #### U MICRO, ERUR #### [facility] [address] [place] [address] Dr. Debra Blake pH (U) 6.0 [pH] Normal 5-9 [facility] Comment on above: Performed By: #### U MICRO, ERUR #### [facility] [address] [place] [address] Dr. Debra Blake SPEC GRAVITY 1.010 Normal 1.005-<=1. 025 [facility] Comment on above: Performed By: #### U MICRO, ERUR #### [facility] [address] [place] [address] Dr. Debra Blake UA PROTEIN TRACE Normal NEGATIVE/ TRACE [facility] Comment on above: Performed By: #### U MICRO, ERUR #### [facility] [address] [place] [address] Dr. Debra Blake UR MICRO IND INDICATED Normal [facility] Comment on above: Performed By: #### U MICRO, ERUR #### [facility] [address] [place] [address] Dr. Debra Blake Urobilinogen Qn (U) 0.2 {Pascale'U}/dL Normal 0.2 - 1. 0 [facility] Comment on above: Performed By: #### U MICRO, ERUR #### [facility] [address] [place] [address] Dr. Debra Blake MAGNESIUMon 12-03-2021 Magnesium [Mass/Vol] 0.4 mg/dL Critically low 1.8-2.4 [facility] Comment on above: Performed By: #### M G #### [facility] [address] [place] [address] Dr. Debra Blake PROF 14(COMP METB)on 022 Albumin [Mass/Vol] 3.2 g/dL Critically low 3.4-5.0 Th e [facility] Comment on above: Performed By: #### H GARY, CMP #### [facility] [address] [place] [address] Dr. Debra Blake Albumin/Globulin [Mass ratio] 0.8 {ratio} Normal [facility] Comment on above: Performed By: #### H GARY, CMP #### [facility] [address] [place] [address] Dr. Debra Blake ALP [Catalytic activity/Vol] 64 U/L Normal 46-116 [facility] Comment on above: Performed By: #### H STROPN, CMP #### [facility] [address] [address] [address] Debra Blake ALT [Catalytic activity/Vol] 11 U/L Critically low 14-59 [facility] Comment on above: Performed By: #### H KINGSTONPN, CMP #### [facility] [address] [address] [address] Dbera Blake Anion gap [Moles/Vol] 19.5 mmol/L Normal [facility] Comment on above: Performed By: #### H KINGSTONPN, CMP #### [facility] [address] [place] [address] Dr. Debra Blake AST [Catalytic activity/Vol] 19 U/L Normal 15-37 [facility] Comment on above: Performed By: #### H GARY, CMP #### [facility] [address] [place] [address] Dr. Debra Blake Bilirubin [Mass/Vol] 0.5 mg/dL Normal 0.2-1.0 [facility] Comment on above: Performed By: #### H GARY, CMP #### [facility] [address] [place] [address] Dr. Debra Blake Calcium [Mass/Vol] 5.8 mg/dL Critically low 8.5-10.1 [facility] Comment on above: Performed By: #### H STROPN, CMP #### [facility] [address] [place] [address] Dr. Debra Blake Chloride [Moles/Vol] 88 mmol/L Critically low 98-107 [facility] Comment on above: Performed By: #### H STROPN, CMP #### [facility] [address] [place] [address] Dr. Debra Blake CO2 [Moles/Vol] 19.7 mmol/L Critically low 21.0-32.0 [facility] Comment on above: Performed By: #### H STROPN, CMP #### [facility] [address] [address] [address] Debra Blake Creatinine [Mass/Vol] 2.77 mg/dL Critically high 0.55-1.02 [facility] Comment on above: Performed By: #### H STROPN, CMP #### [facility] [address] [address] [address] Debra Blake EGFR-AF SAMOAN 21 mL/min/1.73m2 Critically low >=60 [facility] Comment on above: Performed By: #### H STROPN, CMP #### [facility] [address] [address] [address] Debra Blake EGFR-NON AF SAMOAN 18 mL/min/1.73m2 Critically low >=60 [facility] Comment on above: Performed By: #### H STROPN, CMP #### [facility] [address] [address] [address] Debra Blake Globulin (S) [Mass/Vol] 3.9 g/dL Normal [facility] Comment on above: Performed By: #### H STROPN, CMP #### [facility] [address] [address] [address] Debra Blake Glucose [Mass/Vol] 99 mg/dL Normal 74-106 [facility] Comment on above: Performed By: #### H STROPN, CMP #### [facility] [address] [address] [address] Debra Blake Potassium [Moles/Vol] 3.2 mmol/L Critically low 3.5-5.1 [facility] Comment on above: Performed By: #### H STROPN, CMP #### [facility] [address] [address] [address] Debra Blake Protein [Mass/Vol] 7.1 g/dL Normal 6.4-8.2 [facility] Comment on above: Performed By: #### H STROPN, CMP #### [facility] [address] [address] [address] Debra Blake Sodium [Moles/Vol] 124 mmol/L Critically low 136-145 [facility] Comment on above: Performed By: #### H STROPN, CMP #### [facility] [address] [address] [address] Debra Blake Urea nitrogen [Mass/Vol] 28.0 mg/dL Critically high 7.0-18 .0 The [facility] Comment on above: Performed By: #### H STROPN, CMP #### [facility] [address] [address] [address] Debra Blake Urea nitrogen/Creatinine [Mass ratio] 10.1 mg/mg Normal The [facility] Comment on above: Performed By: #### H STROPN, CMP #### [facility] [address] [address] [address] Debra Blake TROPONIN, HIGH SENSITIVITYon 12-03-2021 HSTROP 96.9 pg/mL Critically high 4.0-51.3 The [facility] Comment on above: Result Comment: CUT- OFF POINTS HAVE BEEN ESTABLISHED BASED ON THE FOURTH UNIVERSAL DEFINITIONS OF MYOCARDIAL INFARCTION. THE UPPER REFERENCE LIMIT (URL) OF TROPONIN, DEFINED THE 99TH PERCENTILE OF cTnI DISTRIBUTION IN A REFERENCE POPULATION, HAS BEEN CONFIRMED THE DECISION THRESHOLD FOR NH DIAGNOSIS. Performed By: #### H STROPN, CMP #### [facility] [address] [address] [address] Debra Blake HSTROP 102.0 pg/mL Critically high 4.0-51.3 The [facility] Comment on above: Result Comment: CUT- OFF POINTS HAVE BEEN ESTABLISHED BASED ON THE FOURTH UNIVERSAL DEFINITIONS OF MYOCARDIAL INFARCTION. THE UPPER REFERENCE LIMIT (URL) OF TROPONIN, DEFINED THE 99TH PERCENTILE OF cTnI DISTRIBUTION IN A REFERENCE POPULATION, HAS BEEN CONFIRMED THE DECISION THRESHOLD FOR NH DIAGNOSIS. Performed By: #### H STROPN, CMP #### [facility] [address] [address] [address] Debra Blake URINE MICROSCOPIC ONLYon BACTERIA SMALL Abnormal NONE SEEN The [facility] Comment on above: Performed By: #### U MICRO, ERUR #### [facility] [address] [address] [address] Debra Blake Bacteria identified Cx Nom (U) INDICATED Normal The [facility] Comment on above: Performed By: #### U MICRO, ERUR #### [facility] [address] [place] [address] Dr. Debra Blake CAST NONE SEEN Normal NONE SEEN [facility] Comment on above: Performed By: #### U MICRO, ERUR #### [facility] [address] [place] [address] Dr. Debra Blake Crystals LM Nom (Urine sed) NONE SEEN Normal NONE SEEN [facility] Comment on above: Performed By: #### U MICRO, ERUR #### [facility] [address] [place] [address] Dr. Debra Blake Epithelial cells LM Ql (Urine sed) FEW Abnormal NONE SEEN /RARE The [facility] Comment on above: Performed By: #### U MICRO, ERUR #### [facility] [address] [place] [address] Dr. Debra Blake MUCOUS NONE SEEN Normal NONE SEEN The [facility] Comment on above: Performed By: #### U MICRO, ERUR #### [facility] [address] [place] [address] Dr. Debra Blake RBC 2-5 Abnormal 0-2 [facility] Comment on above: Performed By: #### U MICRO, ERUR #### [facility] [address] [place] [address] Dr. Debra Blake WBC (U) [#/Vol] /uL Abnormal NONE SEEN [facility] Comment on above: Performed By: #### U MICRO, ERUR #### [facility] [address] [place] [address] Dr. Debra Blake XR CHEST 1 Von 12-03-2021 XR CHEST 1 V EXAMINATION: XR CHES T 1 V HISTORY: Dizziness COMPARISON: Chest x-rays 02/19/2015 TECHNIQUE: Portable chest FINDINGS: The lung parenchyma is free of consolidation or infiltrate. No pneumothorax or pleural effusion. The cardiac, mediastinal and hilar contours are normal. The visualized osseous structures exhibit no gross abnormality. IMPRESSION: No acute cardiopulmonary abnormality. Electronically authenticated by: CODY ALEXANDER Date: 2021-12-03 19:03 Normal [facility] Vital Signs Date Time Vital Sign Value Performing Clinician Facility 12-27-2023 14:41-0400 Diastolic blood pressure 100 mm[Hg] [facility] 12-27-2023 14:41-0400 Systolic blood pressure 184 mm[Hg] [facility] 12-27-2023 14:35-0400 Body height 165.1 cm [facility] 12-27-2023 14:35-0400 Body mass index (BMI) [Ratio] 28.3 kg/m2 [facility] 12-27-2023 14:35-0400 Body temperature 98 [degF] [facility] 12-27-2023 14:35-0400 Body weight 77.16 kg [facility] 12-27-2023 14:35-0400 Heart rate 138 /min [facility] 12-27-2023 14:35-0400 Respiratory rate 20 /min [facility] 12-27-2023 14:35-0400 SaO2% (BldA) [Mass fraction] 99 % [facility] 09-28-2023 14:43-0400 Body height 165.1 cm [facility] 09-28-2023 14:43-0400 Body mass index (BMI) [Ratio] 25.6 kg/m2 [facility] 09-28-2023 14:43-0400 Body weight 69.85 kg [facility] 09-28-2023 14:43-0400 Diastolic blood pressure 76 mm[Hg] [facility] 09-28-2023 14:43-0400 Heart rate 77 /min [facility] 09-28-2023 14:43-0400 SaO2% (BldA) [Mass fraction] 98 % [facility] 09-28-2023 14:43-0400 Systolic blood pressure 118 mm[Hg] [facility] 03-15-2022 20:42-0500 Diastolic blood pressure 89 mm[Hg] DO [email or web address] Work Phone: [facility] 03-15-2022 20:42-0500 Heart rate 98 /min DO [email or web address] Work Phone: [facility] 03-15-2022 20:42-0500 Respiratory rate 18 /min DO [email or web address] Work Phone: [facility] 03-15-2022 20:42-0500 SaO2% (BldA) [Mass fraction] 99 % DO Segundo Rawls Work Phone: [facility] 03-15-2022 20:42-0500 Systolic blood pressure 158 mm[Hg] DO Segundo Rawls Work Phone: [facility] 03-15-2022 18:02-0500 Body temperature 98 [degF] DO Segundo Rawls Work Phone: [facility] 03-15-2022 17:59-0500 Body height 162.56 cm DO Segundo Rawls Work Phone: [facility] 03-15-2022 17:59-0500 Body weight 69.3 kg DO Segundo [employer] Work Phone: [facility] 03-15-2022 17:40-0500 Body height 165.1 cm William Vaibhav Other [employer] Other 03-15-2022 17:40-0500 Body mass index (BMI) [Ratio] 25.39 kg/m2 William Vaibhav Other [employer] Other 03-15-2022 17:40-0500 Body temperature 96.6 [degF] William Vaibhav Other [employer] Other 03-15-2022 17:40-0500 Body weight 69.22 kg William Vaibhav Other [employer] Other 03-15-2022 17:40-0500 Diastolic blood pressure 137 mm[Hg] William Vaibhav Other [employer] Other 03-15-2022 17:40-0500 Respiratory rate 18 /min William Vaibhav Other [employer] [facility] [employer] Other 03-15-2022 17:40-0500 SaO2% (BldA) [Mass fraction] 98 % William Vaibhav Other [employer] Other 03-15-2022 17:40-0500 Systolic blood pressure 221 mm[Hg] William Vaibhav Other [employer] [facility] [employer] Other 12-10-2021 11:52-0400 Body temperature 98 [degF] DO Segundo [facility] Work Phone: [facility] 12-10-2021 11:52-0400 Diastolic blood pressure 82 mm[Hg] DO [facility] Work Phone: [facility] 12-10-2021 11:52-0400 Heart rate 77 /min DO [facility] Work Phone: [facility] 12-10-2021 11:52-0400 Respiratory rate 16 /min DO [facility] Work Phone: [facility] 12-10-2021 11:52-0400 SaO2% (BldA) [Mass fraction] 99 % DO Segundo [facility] Work Phone: [facility] 12-10-2021 11:52-0400 Systolic blood pressure 132 mm[Hg] DO [facility] Work Phone: [facility] 12-10-2021 06:00-0400 Body weight 88 kg DO Segundo House Work Phone: [facility] 12-08-2021 14:53-0400 Body height 165.1 cm DO Segundo [facility] Work Phone: [facility] Encounters Encounter Date Encounter Type Care Provider Facility Start: 12-27-2023 End: 12-27-2023 ambulatory [facility] Work Phone: Start: 12-27-2023 End: 12-27-2023 Patient encounter procedure [facility] Physician [facility] Work Phone: Start: 09-28-2023 End: 09-28-2023 ambulatory [facility] Work Phone: Start: 09-28-2023 End: 09-28-2023 Patient encounter procedure [facility] Work Phone: Start: 03-15-2022 End: 03-15-2022 Emergency department patient visit Caden Jarrell Facility:[facility] Start: 03-15-2022 End: 03-15-2022 Emergency department patient visit DO Segundo House Work Phone: [facility] Start: 03-15-2022 End: 03-15-2022 ambulatory William Vaibhav Other [employer] Other Start: 03-15-2022 Office outpatient visit 25 minutes William Vaibhav [facility] Start: 12-19-2021 End: 12-19-2021 ambulatory JUNO HERNÁNDEZ Facility:[facility] Start: 12-15-2021 ambulatory MD Luis SAMS [facility] ity:[facility] Start: 12-08-2021 End: 12-09-2021 ambulatory MD Luis SAMS Facility:CD:[id number] Start: 12-04-2021 End: 12-10-2021 Evaluation and management of inpatient Segundo House Facility:[facility] Start: 12-04-2021 End: 12-10-2021 Evaluation and management of inpatient DO Segundo House Work Phone: [facility] Start: 12-03-2021 End: 12-04-[address] UNIQUE AUSTIN Facility:[facility] Start: 07-04-2017 End: 07-05-2017 Ambulatory DEFAULT PHYSICIAN Facility:[facility] Start: 05-02-2017 End: 05-03-2017 Ambulatory DEFAULT PHYSICIAN Facility:[facility] Procedures Date Procedure Procedure Detail Performing Clinician Start: 03-15-2022 Plain chest X-ray DO Ch sophie House Work Phone: Start: 12-08-2021 CT of abdomen and pe lvis without contrast DO Segundo Rawls Work Phone: Start: 12-07-2021 Ultrasonography of b ilateral kidneys DO Segundo Rawls Work Phone: Start: 12-06-2021 CT of chest without contrast DO Segundo Rawls Work Phone: Measurement of occul t blood in stool specimen using immunoassay DO Segundo Rawls Work Phone: Urine culture DO [place] [place]: Plan of Treatment Date Care Activity Detail Author Start: 12-27-2023 Patient referral [facility] Work Phone: Start: 09-28-2023 Patient referral [facility] Work Phone: Start: 12-10-2021 [facility] Work Phone: Start: 12-08-2021 Referral to urologist [facility] Work Phone: Start: 12-06-2021 Referral to vp hr diversity [facility] Work Phone: Start: 12-05-2021 Referral to sterile process coordinator [facility] Work Phone: Start: 12-05-2021 Administration of prophylactic treatment [facility] Work Phone: Start: 12-05-2021 Ascorbic acid measurement [facility] Work Phone: Start: 12-04-2021 Referral to lead designer [facility] Work Phone: Start: 12-04-2021 Referral to Management [facility] Work Phone: Start: 12-04-2021 Hospital admission [facility] Work Phone: Blood chemistry [facility] Work Phone: Comprehensive metabo lic 2000 panel - Serum or Plasma [facility] MG Breast - bilatera l Diagnostic [facility] Patient Education High Blood Pre ssure ED [facility] Work Phone: Patient referral [facility] Work Phone: Phosphatidylethanol [Mass/volume] in Blood [facility] Work Phone: Thiamine [Moles/volu me] in Blood [facility] Work Phone: US Breast - left limited [facility] Payers Date Payer Category Payer Self-pay 1965 Unknown [id number] 1965 Unknown [id number] 1965 Unknown [id number] 1959 Unknown [id number] [facility] [id number] Unknown Unknown [id number] [id number] Unknown [id number] [id number] Social History Date Type Detail Facility Start: 12-08-2021 End: 09-28-2023 Tobacco smoking status NHIS Smoker (finding) [facility] Start: 1965 Sex Assigned At Female F [facility] Sex Assigned At Sex Assigned At Bir th [employer] [facility] Other Goals Date Patient Goal Desired Activity /State Functional Status Date Assessment Result Facility 12-10-2021 Functional status Patient is Pro gressing Toward Baseline [facility] [place] Work Phone: Mental Status Date Assessment Result Facility 12-10-2021 Cognitive function Cognitive Sta tus Patient at Baseline [facility] Work Phone: Clinical Notes 12-04-2021 to 03-15-2022 Note Date & Type Note Facility 03-15-2022 Evaluation note Encounter Date Diagnosis Assessment Notes Mar, Chronic kidney disease, stage III (moderate) (ICD-10 - N18.30) She has a longstanding CKD due to hypertension. Baseline serum creatinine is unknown. She reported that she was told to have CKD about 2 years ago. I was then returned and was around 1.6 to 1.8 mg/dL during hospitalization. Mar, Hypertensive urgency (ICD-10 - I16.0) He has a hypertensive urgency due to medication noncompliance and alcohol withdrawal. I have advised her to go to the emergency room due to risk of the stroke, heart attack and CHF. She agrees for it. Mar, Anemia of renal disease (ICD-10 - D63.1) Hemoglobin below the goal. We will check iron studies. 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 I have advised her to restrict her fluid intake to 50 ounces a day. Mar, Vitamin D deficiency (ICD-10 - E55.9) She has a vitamin D deficiency and currently takes oral vitamin D. Calcium are within normal limit. Mar, Oswald hy kid w cr kid I-IV (ICD-10 - I12.9) Her blood pressure is high due to medication noncompliance. Advised to go to the emergency room. [employer] Other 09-07-2022 Note [id number] 12-10-2021 Discharge summary Author Hong Mcintosh [facility] December 10, 2021 7:47pm Note Date/Time December 10, 2021 1:26pm [facility] [address] [place] [address] Discharge Summary Signed Patient: Juanita Redman MR#: [id number] : 1965 Acct:[id number] Age/Sex: 56 / F Adm Date: 2 Loc: Room: [address] [place] [address]: Hong Mcintosh DO Copies to: MD Segundo Tijerina, DO Hong Mcintosh, DO Luis Sams MD~ Providers Date of Discharge: 12/10/21 Discharging Provider: Hong Mcintosh Primary Care Provider: Segundo Rawls Consults: 12/04/21 10:18 Consult to Case Management Routine 12/04/21 13:30 Consult to Dietitian Routine 12/04/21 20:32 Consult to Nephrology Routine 12/05/21 17:06 Consult to Gastroenterology Routine 12/06/21 17:53 Consult to Cardiology Routine 12/08/21 08:51 Consult to Urology Routine Discharge Diagnosis (1) Alcohol abuse: (2) Hyponatremia: (3) Hypomagnesemia: (4) Anemia: (5) Hypocalcemia: (6) Hydronephrosis: (7) Urethral stenosis: (8) Paroxysmal atrial fibrillation with RVR: (9) Vasovagal syncope: (10) Iron deficiency: (11) Stress-induced cardiomyopathy: (12) Moderate protein-calorie malnutrition: (13) Folic acid deficiency: (14) Hypothyroid: (15) HTN (hypertension): (16) Hypokalemia: (17) Acute kidney injury: (18) Type 2 myocardial infarction: (19) Macrocytic anemia: (20) Vitamin C deficiency: Final Diagnosis Final Discharge Diagnosis: as per list. Summary Hospital Course Hospital course: This is a 56-year-old woman who was sent over from an outside hospital emergencyroom because of acute kidney injury and hyponatremia, hypokalemia, and extreme hypocalcemia. She had presented to that ER with lightheadedness and passing outwith some loss of consciousness. The patient is told the outside ER that these problems may have been exacerbatedby drinking alcohol a few days before she presented to the ER. At that ER she was given 2 L of IV fluids, 2 g of magnesium IV, and 1 g of calcium IV where she waited for about 24 hours before bed opened up. [facility]. Here in the hospital she did initially continue to drink alcohol that she brought in from home in a water bottle before that was discovered and removed bysecurity. She did go through a mild amount of acute alcohol withdrawal which was managed with low doses of Librium on the CIWA protocol. She was found to be extremely deficient in the number of nutrients: Her magnesium when she arrived was 0.9. Her iron was found to be very low at 22. TIBC and transferrin were also low. Calcium was extremely low when she presented at 6.2. Albumin was low at 3.0. Vitamin C was critically low/undetectable at less than 0.1. Vitamin D was low at 21.8. Folic acid was extremely low at 5.1. Vitamin B12 was acceptable and normal at 520. Thiamine/vitamin B1 was checked but that result is still pending at the time of this discharge summary creation. While she was in the hospital she did go into atrial fibrillation with rapid ventricular response briefly. Cardiology did see her. She actually converted to normal sinus rhythm on her own without the help of medication. Because this was a one-time event probably exacerbated by alcohol withdrawal and severe electrolyte abnormalities cardiology felt that this would not be a long-term problem for her and did not recommend antiarrhythmic medication and did not recommend anticoagulation. She clearly is a very high fall risk so anticoagulation, if indicated, would carry a massive risk. While she was monitored here in the hospital she had no further events of atrial fibrillation. She appears to have a history of supraventricular tachycardia dating back to 2014 and seems to have undergone ablation for that problem x2 at the [facility]. She had nephrology consultation. He felt that the hyponatremia was in the setting of volume depletion exacerbated by alcohol abuse, low albumin, and severe protein calorie malnutrition all may have contributed to a tubular dilution defect. With IV fluid rehydration and a supplementation of her electrolytes her creatinine did improve. When she presented her creatinine was elevated at 2.26 and had improved to 1.84 by the day of discharge. CT scan of the chest was done, to evaluate for any pathology that might cause SIADH. The CT scanning was essentially unrevealing. It found tiny pleural effusions, minimal atelectasis or scarring, minor upper abdominal ascites, and perinephric fibrofatty stranding and a suspected left renal cyst. Bilateral kidney ultrasound was done to rule out an obstructive physiology. This did show a very slight amount of right-sided hydronephrosis of an uncertainetiology. They also saw the cyst which appeared simple in nature on the left kidney measuring up to 4.3 cm in greatest dimension. There is no evidence of mass. Urology was consulted. Urology ordered a CT scan of the abdomen and pelvis. This showed no definite hydronephrosis. But there was a finding of a nonobstructive stone in the right renal collecting system. CT scanning did show fat stranding adjacent to the bladder suggesting cystitis and an ascending urinary tract infection. Urology did plan a cystoscopy and urethral dilatation which they will do as an outpatient. The patient was treated with Levaquin here during the hospital stay. She seemedto be asymptomatic of a urinary tract infection, but also is a suboptimal historian. Urine grew greater than 100,000 colony-forming units of Klebsiella oxytocin which was sensitive to most antibiotics except for ampicillin. At discharge nephrology recommended that she continue Lasix 40 mg daily, take oral magnesium supplementation, take an iron pill every other day due to the iron deficiency anemia. Take vitamin D supplementation, hold her lisinopril, continue her home Toprol 100 mg p.o. daily, finish the antibiotics for the urinary tract infection, and get a basic metabolic profile between 3 and 5 days after discharge and follow-up in the urology office in 4 to 6 weeks. Condition Condition at Discharge: Stable Status at Discharge Functional status at discharge: independent ambulation Overall status at discharge: patient is progressing back to baseline Time Spent with Patient Time spent providing/coordinating discharge services (# min): 37 Diagnostic Studies Completed and Pending Studies Pending studies at discharge: 12/04/21 11:46 Vitamin B1 (Thiamine) Blood Routine 12/05/21 07:29 Phosphatidylethanol IN AM Vitamin C IN AM 12/11/21 05:00 Basic Metabolic Panel [CHEM] IN AM Complete Blood Count Auto Diff IN AM 12/12/21 05:00 Basic Metabolic Panel [CHEM] IN AM Complete Blood Count Auto Diff IN AM 12/13/21 05:00 Basic Metabolic Panel [CHEM] IN AM Complete Blood Count Auto Diff IN AM 12/14/21 05:00 Basic Metabolic Panel [CHEM] IN AM Complete Blood Count Auto Diff IN AM Labs on day of discharge: 12/10/21 07:22: Potassium 4.7, Magnesium 0.7 L* 12/10/21 05:25: PHA Creatinine Clear 36.70, Sodium 131 L, Potassium , Chloride 104, Carbon Dioxide 21.1 L, Anion Gap TNP, BUN 21, Creatinine 1.84 H, Est GFR ( Amer) 34, Est GFR (Non-Af Amer) 28, Glucose 137 H, Calcium 9.0, Magnesium 12/10/21 05:25: Corrected WBC 6.3, Uncorrected WBC Count 6.3, RBC 2.20 L, Hgb 7.5 L, Hct 22.8 L, MCV 103.8 H, MCH 34.3, MCHC 33.0, RDW 16.3 H, Plt Count 356, MPV 6.7, Neut % (Auto) 62.7, Lymph % (Auto) 21.7, Canyon % (Auto) 11.2, Eos % (Auto) 3.5, Baso % (Auto) 0.9, Neut # (Auto) 3.9, Lymph # (Auto) 1.4, Canyon # (Auto) 0.7, Eos # (Auto) 0.2, Baso # (Auto) 0.1, Nucleated RBC % (auto) 0.0 12/09/21 18:15: Hgb 8.0 L, Hct 24.2 L 12/09/21 14:48: Double Strand DNA Ab <1 12/07/21 12:45: Ur Random Albumin 69.2, U Random Total Protein 51.3, U Pygkv-9-Cfymccap (%) 3.1, U Random s-2-Pnhtcfmu % 6.0, U Random b-Globulin % 13.5, U Random Gamma Glob % 8.2, U Random M-Alexei (%) Not observed, Urine Random PEP Note 12/07/21 12:45: Urine Immunofixation Comment: 12/06/21 07:38: Cycl Citrul Peptide IgG 10 12/05/21 07:29: Vitamin C <0.1 L Exam Physical Exam Vital Signs: Temp Pulse Resp BP Pulse Ox O2 Del Method 98.0 F 77 16 132/82 99 Room Air 12/10/21 11:52 12/10/21 11:52 12/10/21 11:52 12/10/21 11:52 12/10/21 11:52 12/10/21 11:52 Narrative: GEN: Awake, alert, oriented. Not tremulous. Sitting upright on top of the bed feeding herself lunch. Head: Normal Cephalic, Atraumatic. Lungs: Clear to auscultation bilaterally, no wheezing, no crackles. Heart: Regular rate and rhythm, no murmurs, rubs, or gallops. Abdomen: Soft, normal bowel sounds, no rigidity, guarding, or acute peritoneal signs. Extremities: No swelling or cords in the calves bilaterally, no edema in the ankles bilaterally. Discharge Plan Discharge Plan Patient Disposition: Home Activity: No Activity Restriction Diet: Regular Additional Instructions: Dietary recommendations: - Magic cup (or equivalent) twice daily with meals Prescriptions: New ascorbic acid (vitamin C) [Vitamin C] 500 mg Tablet 500 mg PO BID.WITH.BFAST.LUNCH 30 Days Qty: 60 1RF calcium carbonate [Oyster Shell Calcium 500] 500 mg calcium (1,250 mg) Tablet 1,000 mg PO BID 30 Days Qty: 120 1RF cholecalciferol (vitamin D3) [Vitamin D3] 10 mcg (400 unit) Tablet 20 mcg PO BID.WITH.MEALS 30 Days Qty: 120 1RF ferrous sulfate 324 mg (65 mg iron) Tablet,Delayed Release (Dr/Ec) 324 mg PO Q48H 30 Days Qty: 15 1RF folic acid 1 mg Tablet 1 mg PO DAILY 30 Days Qty: 30 1RF furosemide 40 mg Tablet 40 mg PO DAILY.8A 30 Days Qty: 30 0RF Rx Instructions: Further refills, or dose adjustment, per Nephrology with Dr. Esposito. sodium bicarbonate 650 mg Tablet 650 mg PO TID 30 Days Qty: 90 1RF thiamine HCl (vitamin B1) 100 mg Tablet 200 mg PO DAILY 30 Days Qty: 60 1RF levofloxacin 750 mg Tablet 750 mg PO Q48H 8 Days Qty: 4 0RF Rx Instructions: Next dose is due on Monday. Slow-Mag 71.5 mg tablet,delayed release (DR/EC) 71.5 mg PO DAILY 30 Days Qty: 30 1RF Continued metoprolol succinate 100 mg tablet extended release 24 hr 100 mg PO DAILY levothyroxine 100 mcg Tablet 100 mcg PO DAILY omeprazole 20 mg Capsule,Delayed Release(Dr/Ec) 20 mg PO DAILY Discontinued lisinopril 20 mg tablet 20 mg PO DAILY diphenhydramine HCl [Benadryl] 25 mg Capsule 25 mg PO BID Other Ambulatory Orders: Basic Metabolic Panel (Routine) Timeframe: 20211214 Location: Determined by Patient Ordered By: William Esposito Follow Up: Rehan Russ MD [Active Staff] - (The office is aware of your hospitalstay and need for follow up/Colonoscopy/EGD, the office will call you to schedule. Please call the office if you have not heard from them by the next business day.) Luis Sams MD [Active Staff] - (The Urology office is aware of your hospital stay and need for follow up/Cystoscopy, the office will call you to schedule. Please call the office if you have not heard from them by the next business day.) Segundo Rawls DO [Primary Care Provider] - (Left message with office regardingdischarge and need for follow-up in 5-7 days. ) William Esposito MD [Active Staff] - (Office is currently closed, please call Nephrology to schedule a follow up appointment.) Documented By: Hong Mcintosh DO [id number] Signed By: <Electronically signed by Hong Mcintosh DO> 12/10/21 698 [facility] [place] Work Phone: [phone]) 745-998009-02-2022 Progress note Author William Esposito [facility] December 10, 2021 11:31am Note Date/Time December 10, 2021 11:24am [facility] [address] [place] [address] Nephrology Progress Note Signed Patient: Juanita Redman MR#: [id number] : 1965 Acct:[id number] Age/Sex: 56 / F Adm Date: 2 Loc: Room: [address] [place] [address] Type: ADM IN Attending Dr: Hong Mcintosh DO Copies to: ~ Date of Service: 12/10/2021 Subjective Subjective Narrative: Mrs. Redman is a 56-year-old white female with history of COPD, smoker, alcohol abuse and hypothyroidism on levothyroxine who was transferred from [facility] on 12/04 for abnormal blood work showing creatinine elevated 2.77 with low sodium 124 and low potassium 3.2 with very low calcium 5.8. Patient presented with lightheadedness and she passed out with momentary loss of consciousness. Patient stated that it could be related to alcohol since she hasbeen having nausea, vomiting and diarrhea for 2 days before admission. Patient was given 2 L of IV fluid and 2 g of magnesium and 1 g of calcium before transfer to [facility]. Today's creatinine is slightly better 1.87 mg/dL however shecontinues to have low sodium 125 mmol/L hence nephrology was consulted. Patient is being seen and examined in her room. She is awake and she feels muchbetter. She is on IV fluid lactated Ringer with potassium chloride 20 mill equivalent per liter at 75 cc/h. Blood pressure did improve 138/68. On admission her hemoglobin was 9.7 however it dropped down to 7.7 g/dL today with IV hydration. She denies any active bleeding. She has elevated MCV and MCH with borderline B12 and folic acid that is currently being replaced. On admission, troponin was elevated more than 100 currently down to 20 pg/mL. She denies any chest pain. Iron stores was also borderline low with ferritin 80.8 and iron saturation 9%. Urine tox screen was positive for benzodiazepines. Urine analysis showed cloudy urine with specific gravity 1.013, 30 mg proteinuria, 4+ leukocytes trace and innumerable WBCs. Urine culture is pending. INTERVAL HISTORY Patient was seen examined at bedside. She is feeling better denies any chest pain palpitation cough nausea vomit diarrhea shortness of breath. She was foundto have low magnesium and and is ordered to receive IV magnesium 4 g. Exam Physical Exam Vital Signs: Temp Pulse Resp BP Pulse Ox O2 Del Method 97.5 F L 68 16 165/89 H 98 Room Air 12/10/21 08:00 12/10/21 08:00 12/10/21 08:00 12/10/21 08:00 12/10/21 08:00 12/10/21 08:00 Narrative: General: Appears comfortable and not in distress Heart: S1-S2, no rub Lung: Bilateral air entry, no wheezing or crackles Abdomen: Soft, positive bowel sounds Extremities: 1+ edema, no cyanosis Head: Atraumatic, normocephalic Ear: No gross hearing Deficit or external ear redness Eyes: No pallor or redness Neck: No JVD or visible mass Skin: No rashes or bruises DIRECTOR OF ELEMENTARY EDUCATION: Awake,Alert, following simple command Musculoskeletal: No joint swelling or limitation of movement Psychiatric: Cooperative, normal mood and affect abdominal hysterectomy Objective Intake and Output I&O: Intake & Output 12/07/21 12/08/21 12/09/2102/22 23:59 23:59 23:59 23:59 Intake Total 1186.2 / 1186.2 1196.2 / 1196.2 1012 / 1012 120 / 120 Output Total 600 / 600 Balance 1186.2 / 1186.2 596.2 / 596.2 1012 / 1012 120 / 120 Weight 84.9 kg 87.1 kg 88.9 kg 88 kg Meds and Allergies Meds: Active Medications Acetaminophen (Acetaminophen 325 Mg Tablet) 650 mg PO Q6HR PRN PRN Reason: Pain Scale 1 - 3 or fever Stop: 12/04/22 10:15 Last Admin: 12/07/21 21:50 Dose: 650 mg Ascorbic Acid (Ascorbic Acid 500 Mg Tablet) 500 mg PO BID.WITH.BFAST.LUNCH CINTIA Stop: 12/05/22 07:59 Last Admin: 12/10/21 08:31 Dose: 500 mg Calcium Carbonate (Calcium Carbonate 500 Mg Tablet) 1,000 mg PO BID CINTIA Stop: 12/06/22 09:29 Last Admin: 12/10/21 08:30 Dose: 1,000 mg Chlordiazepoxide HCl (Chlordiazepoxide 25 Mg Capsule) 0 mg PO PROTOCOL PRN; Protocol PRN Reason: Alcohol Withdrawal Stop: 06/04/22 19:32 Last Admin: 12/08/21 21:14 Dose: 50 mg Ferrous Sulfate (Ferrous Sulfate 324 Mg Tablet.Dr) 324 mg PO Q48H CINTIA Stop: 12/09/22 09:14 Last Admin: 12/09/21 09:37 Dose: 324 mg Folic Acid (Folic Acid 1 Mg Tablet) 1 mg PO DAILY CINTIA Stop: 12/10/22 08:59 Last Admin: 12/10/21 08:31 Dose: 1 mg Furosemide (Furosemide 40 Mg Tablet) 40 mg PO DAILY.8A CINTIA Stop: 12/10/22 07:59 Last Admin: 12/10/21 08:31 Dose: 40 mg Magnesium Sulfate (Magnesium Sulf 2gm-*Swfi*) 2 gm in 50 mls @ 25 mls/hr IV DAILY PRN PRN Reason: Magnesium Level < 1.5 Stop: 12/04/22 10:15 Magnesium Sulfate (Magnesium Sulf 4 Gm-*Swfi*) 4 gm in 100 mls @ 25 mls/hr IV ONCE ONE Stop: 12/10/21 12:59 Last Admin: 12/10/21 09:02 Dose: 25 mls/hr Levofloxacin (Levofloxacin 750 Mg Tablet) 750 mg PO Q48H CINTIA Stop: 12/11/21 09:01 Last Admin: 12/09/21 08:13 Dose: 750 mg Levothyroxine Sodium (Levothyroxine 50 Mcg Tablet) 50 mcg PO DAILY.0630 [facility] Stop: 12/05/22 06:29 Last Admin: 12/10/21 07:31 Dose: 50 mcg Metoprolol Succinate (Metoprolol Succinate 100 Mg Tab.Er.24h) 100 mg PO DAILY CINTIA Stop: 12/04/22 17:43 Last Admin: 12/10/21 08:30 Dose: 100 mg Metoprolol Tartrate (Metoprolol Tartrate 5 Mg/5 Ml Vial) 5 mg IV-PUSH Q4H PRN PRN Reason: tachycardia Stop: 12/06/22 19:17 Nicotine (Nicotine Patch 21 Mg/24hr 1 Each Patch.Td24) 1 each TRANSDERML DAILY [facility] Stop: 12/06/22 08:59 Last Admin: 12/10/21 08:31 Dose: Not Given Omeprazole (Omeprazole 20 Mg Capsule.Dr) 20 mg PO DAILY [facility] Stop: 12/05/22 08:59 Last Admin: 12/10/21 08:31 Dose: 20 mg Potassium Chloride (Potassium Chloride Er 20 Meq Tab.Er.Prt) 20 meq PO DAILY PRN PRN Reason: Hypokalemia Stop: 12/04/22 10:15 Potassium Chloride (Potassium Chloride Er 20 Meq Tab.Er.Prt) 40 meq PO DAILY PRN PRN Reason: Hypokalemia Stop: 12/04/22 10:15 Sodium Bicarbonate (Sodium Bicarbonate 650 Mg Tablet) 650 mg PO TID [facility] Stop: 12/07/22 13:59 Last Admin: 12/10/21 08:30 Dose: 650 mg Sodium Chloride (Sodium Chloride 0.9 % 10 Ml Syringe) 0 ml IV-PUSH PRN PRN PRN Reason: Flush Stop: 12/04/22 10:15 Last Admin: 12/08/21 21:14 Dose: 10 ml Thiamine HCl (Thiamine 100 Mg Tablet) 200 mg PO DAILY [facility] Stop: 12/10/22 08:59 Last Admin: 12/10/21 08:31 Dose: 200 mg Vitamin D (Cholecalciferol 10 Mcg (400 Units) Tablet) 20 mcg PO BID.WITH.MEALS CINTIA Stop: 12/07/22 07:59 Last Admin: 12/10/21 08:30 Dose: 20 mcg Allergies cephalexin [From Keflex] Adverse Reaction (Verified 12/04/21 10:03) Nausea prednisone Adverse Reaction (Verified 12/04/21 10:03) Swelling Results Labs CBC & Chem 7: 12/10/21 05:25 12/10/21 07:22 Labs: 12/10/21 05:25 BUN 21 Creatinine 1.84 H Radiology Impressions Impressions - last 24 hours: Any impression(s) listed above is documentation that was entered by the reading physician into a diagnostic report(s) for Juanita Redman. I have reviewed the report(s) and am incorporating any findings in the treatment plan of this patient where applicable. A&P - Nephrology Assessment/Plan (1) Hyponatremia: Assessment/Problem Details: Patient has hyponatremia in the setting of volume depletion. She also has a history of alcohol abuse with low albumin and protein calorie malnutrition that may contribute to tubular dilution defect. She was admitted with sodium 124 mmol/L, no previous records for previous sodium so it is not clear if she has chronic hyponatremia. Patient has been alcoholic and she has COPD and there is a high possibility that she may have SIADH. (2) Hypomagnesemia: Assessment/Problem Details: Patient had hypocalcemia and hypomagnesemia on admission that was repleted. Hypomagnesemia possibly related to alcohol abuse and PPI (3) Anemia: Assessment/Problem Details: Patient had anemia on admission 9 g/dL with a drop down to 7.7 g/dL with IV hydration. It is not clear if the patient has a bleeding. She has macrocytic anemia with elevated MCV in the setting of low folic acid and borderline B12 that is being repleted. Possibility of surgical varices or active bleeding cannot be excluded. (4) Alcohol abuse: Assessment/Problem Details: Patient has long history of alcohol abuse, she stated that currently cut down to two fifth/week (5) Hypocalcemia: Assessment/Problem Details: Patient has severe hypocalcemia and hypomagnesemia possibly related to alcohol abuse with decreased oral intake. He could have vitamin D deficiency as well. (6) Hydronephrosis: Assessment/Problem Details: She has hydronephrosis due to the unclear etiology. Plan * Continue Lasix 40 mg p.o. daily * Start magnesium 400 mg daily. She likely has hypomagnesemia due to the PPI. * Continue oral iron every other day due to the anemia of iron deficiency. She has unremarkable work-up for paraproteinemia * Continue ergocalciferol 50,000 weekly. * Continue holding lisinopril. * Continue home dose of metoprolol 100 mg daily. * Monitor daily intake and output and renal panel. * Continue antibiotics for UTI as per the primary team. * Check renal function 3 to 5 days after discharge. Patient can follow-up in the office 4 to 6 weeks after discharge. Documented By: William Esposito MD 12/10/21 1123 Signed By: <Electronically signed by William Esposito MD> 12/10/21 1131 [facility] Work Phone: [phone]) 805-665609-01-2022 Progress note Author Hong Mcintosh [facility] December 09, 2021 4:10pm Note Date/Time December 09, 2021 4:10pm [facility] [address] [place] [address] Hospitalist Progress Note Signed Patient: Juanita Redman MR#: [id number] : 1965 Acct:[id number] Age/Sex: 56 / F Adm Date: 2 Loc: Room: [address] [place] [address] Type: ADM IN Attending Dr: Hong Mcintosh DO Copies to: ~ Date of Service: 12/09/2021 Subjective Subjective Narrative: Today the patient is complaining of polyuria from Lasix. Diarrhea that she complained about a few days ago is slowing down. She is not feeling tremulous or anxious or jittery at this time. She denies abdominal pain. She denies nausea or upset stomach. She denies chest pain or anginal type chest discomfortat this time. No headaches. No fevers or chills. Exam Physical Exam Vital Signs: Temp Pulse Resp BP Pulse Ox O2 Del Method 97.7 F 90 18 160/93 H 98 Room Air 12/09/21 08:15 12/09/21 12:00 12/09/21 12:00 12/09/21 12:00 12/09/21 12:00 12/09/21 12:00 Narrative: GEN: Awake, alert, oriented. Not tremulous. Sitting upright on top of the bedfeeding herself lunch. Head: Normal Cephalic, Atraumatic. Lungs: Clear to auscultation bilaterally, no wheezing, no crackles. Heart: Regular rate and rhythm, no murmurs, rubs, or gallops. Abdomen: Soft, normal bowel sounds, no rigidity, guarding, or acute peritoneal signs. Extremities: No swelling or cords in the calves bilaterally, no edema in the ankles bilaterally. Objective Lab Results CBC & Chem 7: 12/09/21 05:30 12/09/21 05:30 Meds Allergies and Active Meds Allergies cephalexin [From Keflex] Adverse Reaction (Verified 12/04/21 10:03) Nausea prednisone Adverse Reaction (Verified 12/04/21 10:03) Swelling Active Meds: Active Medications Generic Name Dose Route Start Last Admin Trade Name Freq PRN Reason Stop Dose Admin Acetaminophen 650 mg 12/04/21 10:16 12/07/21 21:50 Acetaminophen 325 Mg Tablet PO 12/04/22 10:15 650 mg Q6HR PRN Administration Pain Scale 1 - 3 or fever Ascorbic Acid 500 mg 12/05/21 08:00 12/09/21 12:32 Ascorbic Acid 500 Mg Tablet PO 12/05/22 07:59 500 mg BID.WITH.BFAST.LUNCH CINTIA Administration Calcium Carbonate 1,000 mg 12/06/21 09:30 12/09/21 08:13 Calcium Carbonate 500 Mg Tablet PO 12/06/22 09:29 1,000 mg BID CINTIA Administration Chlordiazepoxide HCl 0 mg 12/06/21 19:33 12/08/21 21:14 Chlordiazepoxide 25 Mg Capsule PO 06/04/22 19:32 50 mg PROTOCOL PRN Administration Alcohol Withdrawal Protocol Ferrous Sulfate 324 mg 12/09/21 09:15 12/09/21 09:37 Ferrous Sulfate 324 Mg Tablet. PO 12/09/22 09:14 324 mg Q48H CINTIA Administration Folic Acid 1 mg 12/10/21 09:00 Folic Acid 1 Mg Tablet PO 12/10/22 08:59 DAILY CINTIA Furosemide 40 mg 12/10/21 08:00 Furosemide 40 Mg Tablet PO 12/10/22 07:59 DAILY.8A CINTIA Magnesium Sulfate 2 gm in 50 mls @ 25 mls/hr 12/04/21 10:16 Magnesium Sulf 2gm-*Swfi* IV 12/04/22 10:15 DAILY PRN Magnesium Level < 1.5 Levofloxacin 750 mg 12/09/21 09:00 12/09/21 08:13 Levofloxacin 750 Mg Tablet PO 12/11/21 09:01 750 mg Q48H CINTIA Administration Levothyroxine Sodium 50 mcg 12/05/21 06:30 12/09/21 05:30 Levothyroxine 50 Mcg Tablet PO 12/05/22 06:29 50 mcg DAILY.0630 CINTIA Administration Metoprolol Succinate 100 mg 12/04/21 17:44 12/09/21 08:14 Metoprolol Succinate 100 Mg Tab.Er.24h PO 12/04/22 17:43 100 mg DAILY CINTIA Administration Metoprolol Tartrate 5 mg 12/06/21 19:18 Metoprolol Tartrate 5 Mg/5 Ml Vial IV-PUSH 12/06/22 19:17 Q4H PRN tachycardia Nicotine 1 each 12/06/21 09:00 12/09/21 08:15 Nicotine Patch 21 Mg/24hr 1 Each Patch.Td24 TRANSDERML 12/06/22 08:59 Not Given DAILY CINTIA Omeprazole 20 mg 12/05/21 09:00 12/09/21 08:14 Omeprazole 20 Mg Capsule.Dr PO 12/05/22 08:59 20 mg DAILY CINTIA Administration Potassium Chloride 20 meq 12/04/21 10:16 Potassium Chloride Er 20 Meq Tab.Er.Prt PO 12/04/22 10:15 DAILY PRN Hypokalemia Potassium Chloride 40 meq 12/04/21 10:16 Potassium Chloride Er 20 Meq Tab.Er.Prt PO 12/04/22 10:15 DAILY PRN Hypokalemia Sodium Bicarbonate 650 mg 12/07/21 14:00 12/09/21 15:49 Sodium Bicarbonate 650 Mg Tablet PO 12/07/22 13:59 650 mg TID CINTIA Administration Sodium Chloride 0 ml 12/04/21 10:16 12/08/21 21:14 Sodium Chloride 0.9 % 10 Ml Syringe IV-PUSH 12/04/22 10:15 10 ml PRN PRN Administration Flush Thiamine HCl 200 mg 12/10/21 09:00 Thiamine 100 Mg Tablet PO 12/10/22 08:59 DAILY [facility] Vitamin D 20 mcg 12/07/21 08:00 12/09/21 15:49 Cholecalciferol 10 Mcg (400 Units) Tablet PO 12/07/22 07:59 20 mcg BID.WITH.MEALS CINTIA Administration A&P - Hospitalist Assessment/Plan (1) Acute kidney injury: (2) Hyponatremia: (3) Hypocalcemia: (4) Hypomagnesemia: (5) Hypokalemia: (6) Anemia: (7) Alcohol abuse: (8) HTN (hypertension): (9) Hypothyroid: (10) Folic acid deficiency: (11) Moderate protein-calorie malnutrition: (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 Acute kidney injury Renal function continues to improve; nephrology following for recommendations and management 2. Hyponatremia Sodium improving; multifactorial. 3. Anemia Likely due to both iron deficiency and folic acid deficiency. Stable; continue to monitor Although hemoglobin has drifted down to 7.3 she seems to be asymptomatic at thistime 4. Urinary tract infection Continue antibiotic with Levaquin 5. Alcohol abuse/dependence Continue CIWA protocol 6. Hydronephrosis on the right - mild, with non-obstructing stone in the right renal collecting system. Patient was noted to have very mild right-sided hydronephrosis on renal ultrasound per urology.? Urology with recommendations for cystoscopy and urethral dilation as an outpatient. CT scanning ordered by nephrology did show a nonobstructive stone in the right renal collecting system. Awaiting follow-up from urology on this. 7. A. fib with RVR - -in hospital. No recurrence so far. This is a one-time event so likely will not require anticoagulation. A. fib probably triggered by electrolyte abnormalities and acute alcohol withdrawal. Also high risk for anticoagulation so anticoagulation felt to be too risky to have any benefit at this time. Documented By: Hong Mcintosh DO 1601 Signed By: <Electronically signed by Hong Mcintosh DO> 12/09/21 1610 [facility] Work Phone: [phone] 110-284309-01-2022 Progress note Author William Esposito [facility] December 09, 2021 10:58am Note Date/Time December 09, 2021 10:58am [facility] [address] [place], [place] [id number] Nephrology Progress Note Signed Patient: Juanita Redman MR#: [id number] : 1965 Acct:[id number] Age/Sex: 56 / F Adm Date: 2 Loc: Room: [address] [place] [address] Type: ADM IN Attending Dr: Hong Mcintosh DO Copies to: ~ Date of Service: 12/09/2021 Subjective Subjective Narrative: Mrs. Redman is a 56-year-old white female with history of COPD, smoker, alcohol abuse and hypothyroidism on levothyroxine who was transferred from [facility] on 12/04 for abnormal blood work showing creatinine elevated 2.77 with low sodium 124 and low potassium 3.2 with very low calcium 5.8. Patient presented with lightheadedness and she passed out with momentary loss of consciousness. Patient stated that it could be related to alcohol since she hasbeen having nausea, vomiting and diarrhea for 2 days before admission. Patient was given 2 L of IV fluid and 2 g of magnesium and 1 g of calcium before transfer to [facility]. Today's creatinine is slightly better 1.87 mg/dL however shecontinues to have low sodium 125 mmol/L hence nephrology was consulted. Patient is being seen and examined in her room. She is awake and she feels muchbetter. She is on IV fluid lactated Ringer with potassium chloride 20 mill equivalent per liter at 75 cc/h. Blood pressure did improve 138/68. On admission her hemoglobin was 9.7 however it dropped down to 7.7 g/dL today with IV hydration. She denies any active bleeding. She has elevated MCV and MCH with borderline B12 and folic acid that is currently being replaced. On admission, troponin was elevated more than 100 currently down to 20 pg/mL. She denies any chest pain. Iron stores was also borderline low with ferritin 80.8 and iron saturation 9%. Urine tox screen was positive for benzodiazepines. Urine analysis showed cloudy urine with specific gravity 1.013, 30 mg proteinuria, 4+ leukocytes trace and innumerable WBCs. Urine culture is pending. INTERVAL HISTORY She is feeling better denies any chest pain palpitation cough nausea vomit diarrhea shortness of breath. She was seen by the urology yesterday and had a CT abdomen pelvis done which showed no evidence of hydronephrosis but finding concerning for ascending urinary tract infection. She is currently on oral antibiotic based on culture sensitivity. Exam Physical Exam Vital Signs: Temp Pulse Resp BP Pulse Ox O2 Del Method 97.7 F 87 18 147/98 H 99 Room Air 12/09/21 08:15 12/09/21 08:15 12/09/21 08:15 12/09/21 08:15 12/09/21 08:15 12/09/21 08:15 Narrative: General: Appears comfortable and not in distress Heart: S1-S2, no rub Lung: Bilateral air entry, no wheezing or crackles Abdomen: Soft, positive bowel sounds Extremities: 1+ edema, no cyanosis Head: Atraumatic, normocephalic Ear: No gross hearing Deficit or external ear redness Eyes: No pallor or redness Neck: No JVD or visible mass Skin: No rashes or bruises DIRECTOR [employer]LEMENT[employer] EDUCATION: Awake,Alert, following simple command Musculoskeletal: No joint swelling or limitation of movement Psychiatric: Cooperative, normal mood and affect abdominal hysterectomy Objective Intake and Output I&O: Intake & Output 12/06/21 12/07/21 12/08/21 12/09/21 23:59 23:59 23:59 23:59 Intake Total 1794.2 / 1794.2 1186.2 / 1186.2 1196.2 / 1196.2 200 / 200 Output Total / 600 / 600 Balance 1792.2 / 1792.2 1186.2 / 1186.2 596.2 / 596.2 200 / 200 Weight 75.8 kg 84.9 kg 87.1 kg 88.9 kg Meds and Allergies Meds: Active Medications Acetaminophen (Acetaminophen 325 Mg Tablet) 650 mg PO Q6HR PRN PRN Reason: Pain Scale 1 - 3 or fever Stop: 12/04/22 10:15 Last Admin: 12/07/21 21:50 Dose: 650 mg Ascorbic Acid (Ascorbic Acid 500 Mg Tablet) 500 mg PO BID.WITH.BFAST.LUNCH CINTIA Stop: 12/05/22 07:59 Last Admin: 12/09/21 08:25 Dose: 500 mg Calcium Carbonate (Calcium Carbonate 500 Mg Tablet) 1,000 mg PO BID CINTIA Stop: 12/06/22 09:29 Last Admin: 12/09/21 08:13 Dose: 1,000 mg Chlordiazepoxide HCl (Chlordiazepoxide 25 Mg Capsule) 0 mg PO PROTOCOL PRN; Protocol PRN Reason: Alcohol Withdrawal Stop: 06/04/22 19:32 Last Admin: 12/08/21 21:14 Dose: 50 mg Ferrous Sulfate (Ferrous Sulfate 324 Mg Tablet.Dr) 324 mg PO Q48H CINTIA Stop: 12/09/22 09:14 Last Admin: 12/09/21 09:37 Dose: 324 mg Furosemide (Furosemide 40 Mg Tablet) 40 mg PO DAILY.8A [facility] Stop: 12/10/22 07:59 Magnesium Sulfate (Magnesium Sulf 2gm-*Swfi*) 2 gm in 50 mls @ 25 mls/hr IV DAILY PRN PRN Reason: Magnesium Level < 1.5 Stop: 12/04/22 10:15 Folic Acid 1 mg/ Dextrose 50.2 mls @ 100.4 mls/hr IV DAILY CINTIA Stop: 12/04/22 13:59 Last Admin: 12/09/21 09:37 Dose: 100 mls/hr Thiamine HCl 200 mg/ Sodium (Chloride) 102 mls @ 204 mls/hr IV TID [facility] Stop: 12/04/22 21:59 Last Admin: 12/09/21 09:37 Dose: 204 mls/hr Levofloxacin (Levofloxacin 750 Mg Tablet) 750 mg PO Q48H [facility] Stop: 12/16/21 09:00 Last Admin: 12/09/21 08:13 Dose: 750 mg Levothyroxine Sodium (Levothyroxine 50 Mcg Tablet) 50 mcg PO DAILY.0630 [facility] Stop: 12/05/22 06:29 Last Admin: 12/09/21 05:30 Dose: 50 mcg Metoprolol Succinate (Metoprolol Succinate 100 Mg Tab.Er.24h) 100 mg PO DAILY [facility] Stop: 12/04/22 17:43 Last Admin: 12/09/21 08:14 Dose: 100 mg Metoprolol Tartrate (Metoprolol Tartrate 5 Mg/5 Ml Vial) 5 mg IV-PUSH Q4H PRN PRN Reason: tachycardia Stop: 12/06/22 19:17 Nicotine (Nicotine Patch 21 Mg/24hr 1 Each Patch.Td24) 1 each TRANSDERML DAILY [facility] Stop: 12/06/22 08:59 Last Admin: 12/09/21 08:15 Dose: Not Given Omeprazole (Omeprazole 20 Mg Capsule.Dr) 20 mg PO DAILY [facility] Stop: 12/05/22 08:59 Last Admin: 12/09/21 08:14 Dose: 20 mg Potassium Chloride (Potassium Chloride Er 20 Meq Tab.Er.Prt) 20 meq PO DAILY PRN PRN Reason: Hypokalemia Stop: 12/04/22 10:15 Potassium Chloride (Potassium Chloride Er 20 Meq Tab.Er.Prt) 40 meq PO DAILY PRN PRN Reason: Hypokalemia Stop: 12/04/22 10:15 Sodium Bicarbonate (Sodium Bicarbonate 650 Mg Tablet) 650 mg PO TID [facility] Stop: 12/07/22 13:59 Last Admin: 12/09/21 08:14 Dose: 650 mg Sodium Chloride (Sodium Chloride 0.9 % 10 Ml Syringe) 0 ml IV-PUSH PRN PRN PRN Reason: Flush Stop: 12/04/22 10:15 Last Admin: 12/08/21 21:14 Dose: 10 ml Vitamin D (Cholecalciferol 10 Mcg (400 Units) Tablet) 20 mcg PO BID.WITH.MEALS [facility] Stop: 12/07/22 07:59 Last Admin: 12/09/21 08:13 Dose: 20 mcg Allergies cephalexin [From Keflex] Adverse Reaction (Verified 12/04/21 10:03) Nausea prednisone Adverse Reaction (Verified 12/04/21 10:03) Swelling Results Labs CBC & Chem 7: 12/09/21 05:30 12/09/21 05:30 Labs: 12/09/21 05:30 BUN 21 Creatinine 1.78 H Radiology Impressions Impressions - last 24 hours: Impressions Abdomen/Pelvis CT 12/08/21 15:45 IMPRESSION: No definite hydronephrosis. There is a nonobstructing stone in the right renal collecting system. There is perinephric fat stranding, fat stranding along the ureters, and fat stranding adjacent to the bladder suggesting cystitis with ascending urinary tract infection. Small bilateral pleural effusions are noted. There is diffuse anasarca along the abdominal wall. Impression dictated by: Unique Enciso M.D.12/08/2021 5:49 PM Dictation Location: [place] [address] Any impression(s) listed above is documentation that was entered by the reading physician into a diagnostic report(s) for Juanita Redman. I have reviewed the report(s) and am incorporating any findings in the treatment plan of this patient where applicable. A&P - Nephrology Assessment/Plan (1) Hyponatremia: Assessment/Problem Details: Patient has hyponatremia in the setting of volume depletion. She also has a history of alcohol abuse with low albumin and protein calorie malnutrition that may contribute to tubular dilution defect. She was admitted with sodium 124 mmol/L, no previous records for previous sodium so it is not clear if she has chronic hyponatremia. Patient has been alcoholic and she has COPD and there is a high possibility that she may have SIADH. (2) Hypomagnesemia: Assessment/Problem Details: Patient had hypocalcemia and hypomagnesemia on admission that was repleted. Hypomagnesemia possibly related to alcohol abuse and decreased oral intake (3) Anemia: Assessment/Problem Details: Patient had anemia on admission 9 g/dL with a drop down to 7.7 g/dL with IV hydration. It is not clear if the patient has a bleeding. She has macrocytic anemia with elevated MCV in the setting of low folic acid and borderline B12 that is being repleted. Possibility of surgical varices or active bleeding cannot be excluded. (4) Alcohol abuse: Assessment/Problem Details: Patient has long history of alcohol abuse, she stated that currently cut down to two fifth/week (5) Hypocalcemia: Assessment/Problem Details: Patient has severe hypocalcemia and hypomagnesemia possibly related to alcohol abuse with decreased oral intake. He could have vitamin D deficiency as well. (6) Hydronephrosis: Assessment/Problem Details: She has hydronephrosis due to the unclear etiology. Plan * Her blood pressure is high and she appears to be hypervolemic. We will start Lasix 40 mg daily * Start oral iron every other day due to the anemia of iron deficiency. She has unremarkable work-up for paraproteinemia * Continue ergocalciferol 50,000 weekly. * Continue holding lisinopril. * Continue home dose of metoprolol 100 mg daily. * Monitor daily intake and output and renal panel. * Continue antibiotics for UTI as per the primary team. * Check renal function 3 to 5 days after discharge. Patient can follow-up in the office 4 to 6 weeks after discharge. Documented By: William Esposito MD 12/09/21 1054 Signed By: <Electronically signed by William Esposito MD> 12/09/21 105 [facility] Work Phone: [phone] 297-381308-31-2022 Progress note Author Claude Castellanos [facility] December 08, 2021 6:59pm Note Date/Time December 08, 2021 6: 59pm [facility] [address] [place] [address] Hospitalist Progress Note Signed Patient: Juanita Redman MR#: [id number] : 1965 Acct:[id number] Age/Sex: 56 / F Adm Date: 2 Loc: Room: [address] [place] [address] Type: ADM IN Attending Dr: Claude Castellanos MD Copies to: ~ Date of Service: 12/08/2021 Subjective Subjective Narrative: Patient sleeping on exam this morning reports of being tired but no acute eventsovernight. Patient looking forward to going home. Patient states that she is not ready to stop drinking alcohol. Exam Physical Exam Vital Signs: Temp Pulse Resp BP Pulse Ox O2 Del Method 98.1 F 91 H 16 183/84 H 98 Room Air 12/08/21 15:21 12/08/21 15:21 12/08/21 15:21 12/08/21 15:21 12/08/21 15:21 12/08/21 15:21 Const General: cooperative, healthy appearing and comfortable Resp Effort & Inspection: normal respiratory effort and able to speak in complete sentences Neuro General: patient alert, patient awake and patient oriented x3 Psych Appearance: grossly normal Objective Lab Results CBC & Chem 7: 12/08/21 17:48 12/08/21 05:53 Meds Allergies and Active Meds Allergies cephalexin [From Keflex] Adverse Reaction (Verified 12/04/21 10:03) Nausea prednisone Adverse Reaction (Verified 12/04/21 10:03) Swelling Active Meds: Active Medications Generic Name Dose Route Start Last Admin Trade Name Freq PRN Reason Stop Dose Admin Acetaminophen 650 mg 12/04/21 10:16 12/07/21 21:50 Acetaminophen 325 Mg Tablet PO 12/04/22 10:15 650 mg Q6HR PRN Administration Pain Scale 1 - 3 or fever Ascorbic Acid 500 mg 12/05/21 08:00 12/08/21 11:36 Ascorbic Acid 500 Mg Tablet PO 12/05/22 07:59 500 mg BID.WITH.BFAST.LUNCH CINTIA Administration Calcium Carbonate 1,000 mg 12/06/21 09:30 12/08/21 08:29 Calcium Carbonate 500 Mg Tablet PO 12/06/22 09:29 1,000 mg BID CINTIA Administration Chlordiazepoxide HCl 0 mg 12/06/21 19:33 12/07/21 21:50 Chlordiazepoxide 25 Mg Capsule PO 06/04/22 19:32 50 mg PROTOCOL PRN Administration Alcohol Withdrawal Protocol Magnesium Sulfate 2 gm in 50 mls @ 25 mls/hr 12/04/21 10:16 Magnesium Sulf 2gm-*Swfi* IV 12/04/22 10:15 DAILY PRN Magnesium Level < 1.5 Folic Acid 1 mg/ Dextrose 50.2 mls @ 100.4 mls/hr 12/04/21 14:00 12/08/21 09:44 IV 12/04/22 13:59 100 mls/hr DAILY CINTIA Administration Thiamine HCl 200 mg/ Sodium 102 mls @ 204 mls/hr 12/04/21 22:00 12/08/21 14:39 Chloride IV 12/04/22 21:59 204 mls/hr TID CINTIA Administration Levofloxacin 750 mg 12/09/21 09:00 Levofloxacin 750 Mg Tablet PO 12/16/21 09:00 Q48H CINTIA Levothyroxine Sodium 50 mcg 12/05/21 06:30 12/08/21 05:51 Levothyroxine 50 Mcg Tablet PO 12/05/22 06:29 50 mcg DAILY.0630 CINTIA Administration Metoprolol Succinate 100 mg 12/04/21 17:44 12/08/21 08:29 Metoprolol Succinate 100 Mg Tab.Er.24h PO 12/04/22 17:43 100 mg DAILY CINTIA Administration Metoprolol Tartrate 5 mg 12/06/21 19:18 Metoprolol Tartrate 5 Mg/5 Ml Vial IV-PUSH 12/06/22 19:17 Q4H PRN tachycardia Nicotine 1 each 12/06/21 09:00 12/08/21 08:29 Nicotine Patch 21 Mg/24hr 1 Each Patch.Td24 TRANSDERML 12/06/22 08:59 Not Given DAILY CINTIA Omeprazole 20 mg 12/05/21 09:00 12/08/21 08:28 Omeprazole 20 Mg Capsule.Dr PO 12/05/22 08:59 20 mg DAILY CINTIA Administration Potassium Chloride 20 meq 12/04/21 10:16 Potassium Chloride Er 20 Meq Tab.Er.Prt PO 12/04/22 10:15 DAILY PRN Hypokalemia Potassium Chloride 40 meq 12/04/21 10:16 Potassium Chloride Er 20 Meq Tab.Er.Prt PO 12/04/22 10:15 DAILY PRN Hypokalemia Sodium Bicarbonate 650 mg 12/07/21 14:00 12/08/21 14:39 Sodium Bicarbonate 650 Mg Tablet PO 12/07/22 13:59 650 mg TID CINTIA Administration Sodium Chloride 0 ml 12/04/21 10:16 12/05/21 22:07 Sodium Chloride 0.9 % 10 Ml Syringe IV-PUSH 12/04/22 10:15 10 ml PRN PRN Administration Flush Vitamin D 20 mcg 12/07/21 08:00 12/08/21 17:05 Cholecalciferol 10 Mcg (400 Units) Tablet PO 12/07/22 07:59 20 mcg BID.WITH.MEALS CINTIA Administration A&P - Hospitalist Assessment/Plan (1) Acute kidney injury: (2) Hyponatremia: (3) Hypocalcemia: (4) Hypomagnesemia: (5) Hypokalemia: (6) Anemia: (7) Alcohol abuse: (8) HTN (hypertension): (9) Hypothyroid: (10) Folic acid deficiency: (11) Moderate protein-calorie malnutrition: (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 Acute kidney injury Renal function continues to improve; nephrology following for recommendations and management 2. Hyponatremia Sodium improving; suspect beer proteinuria. 3. Anemia Stable; continue to monitor 4. Urinary tract infection Continue antibiotic with Levaquin 5. Alcohol abuse/dependence Continue CIWA protocol 6. Hydronephrosis Patient was noted to have very mild right-sided hydronephrosis on renal ultrasound per urology.? Urology with recommendations for cystoscopy and urethral dilation as an outpatient. Documented By: Claude Castellanos MD 12/08/211853 Signed By: <Electronically signed by Claude Castellanos MD> 12/08/211858 [facility] Work Phone: [phone]) [phone] Consult note Author Luis Sams [facility] December 08, 2021 3:55pm Note Date/Time December 08, 2021 3: 55pm [facility] [address] [place] [address] Urology Consult Note Signed Patient: Juanita Redman MR#: [id number] : 1965 Acct:[id number] Age/Sex: 56 / F Adm Date: 2 Loc: Room: [address] [place] [address] Type: ADM IN Attending Dr: Claude Castellanos MD Copies to: DO Claude Rose MD Patrick R Waters, MD~ History of Present Illness Consult Details Consult Date: 12/08/2021 Requesting Provider: Claude Castellanos MD HPI: This lady was admitted to the hospital after transfer from [facility] dueto low sodium, calcium and magnesium and acute renal injury. Her admission creatinine was 2.7. With conservative management her renal function has significantly improved with the current creatinine of 1.7. She did get a renal ultrasound which showed very minor right-sided hydronephrosis of unknown etiology. Urologic consultation was obtained for the above reasons. Upon questioning her further she denies any history of nephrolithiasis. She also denies recurrent urinary infections. She does have occasional bouts where it is difficult for her to urinate. Review of Systems Review of Systems All other systems reviewed & are negative unless noted below or in HPI [facility] Vaccinated for COVID-19?: No Medical History Alcohol abuse Anemia COPD (chronic obstructive pulmonary disease) GERD (gastroesophageal reflux disease) HTN (hypertension) Hypothyroid Myocardial infarction Noncompliance Pneumonia Seasonal allergies Smoker SVT (supraventricular tachycardia) Surgical History History of breast lump removal History of History of radiofrequency ablation (RFA) procedure for cardiac arrhythmia Family History Father Diabetes Lung cancer HTN (hypertension) Brother HTN (hypertension) Mother Heart disease HTN (hypertension) Grandparent Diabetes Family/Other Breast cancer Social History Smoking Status: Current every day smoker Tobacco Type: cigarettes Substance Use Type: Alcohol Meds Medications and Allergies Allergies cephalexin [From Keflex] Adverse Reaction (Verified 12/04/21 10:03) Nausea prednisone Adverse Reaction (Verified 12/04/21 10:03) Swelling Home Medications diphenhydramine HCl 25 mg capsule (Benadryl) 25 mg PO BID 12/04/21 [History Confirmed 12/04/21] levothyroxine 100 mcg tablet 100 mcg PO DAILY 12/04/21 [History Confirmed 12/04/21] lisinopril 20 mg tablet 20 mg PO DAILY 12/04/21 [History Confirmed 12/04/21] metoprolol succinate 100 mg tablet,extended release 24 hr 100 mg PO DAILY 12/04/21 [History Confirmed 12/04/21] omeprazole 20 mg capsule,delayed release 20 mg PO DAILY 12/04/21 [History Confirmed 12/04/21] Exam Physical Exam Vital Signs: Temp Pulse Resp BP Pulse Ox O2 Del Method 98.1 F 91 H 16 183/84 H 98 Room Air 12/08/21 15:21 12/08/21 15:21 12/08/21 15:21 12/08/21 15:21 12/08/21 15:21 12/08/21 15:21 Narrative: She is sitting in her bed and in no acute distress. Abdomen is soft and nontender. No masses are palpable. Pelvic exam is not done at this time. Results Labs CBC & Chem 7: 12/08/21 05:53 12/08/21 05:53 Labs: Laboratory Results - Last 48 hrs. 12/08/21 05:53: PHA Creatinine Clear 37.34, Sodium 130 L, Potassium 4.3, Chloride 103, Carbon Dioxide 20.5 L, Anion Gap 10.8, BUN 22, Creatinine 1.79 H, Est GFR ( Amer) 35, Est GFR (Non-Af Amer) 29, Glucose 104 H, Calcium 8.1 L 12/08/21 05:53: Corrected WBC 5.6, Uncorrected WBC Count 5.6, RBC 2.18 L, Hgb 7.3 L, Hct 22.6 L, MCV 103.7 H, MCH 33.7, MCHC 32.5, RDW 16.3 H, Plt Count 282, MPV 7.2, Neut % (Auto) 55.8, Lymph % (Auto) 27.7, [place] % (Auto) 13.1, Eos % (Auto) 2.7, Baso % (Auto) 0.7, Neut # (Auto) 3.1, Lymph # (Auto) 1.6, [place] # (Auto) 0.7, Eos # (Auto) 0.2, Baso # (Auto) 0.0, Nucleated RBC % (auto) 0.1 12/07/21 12:45: Ur Random Creatinine 153.0, U Random Total Protein 55 H, Protein/Creatinin Ratio 359 H 12/07/21 04:24: PHA Creatinine Clear 35.69, Sodium 128 L, Potassium 5.2 H, Chloride 105, Carbon Dioxide 18.5 L, Anion Gap 9.7, BUN 27 H, Creatinine 1.75 H,Est GFR ( Amer) 36, Est GFR (Non-Af Amer) 30, Glucose 124 H, Calcium 7.2 L 12/07/21 04:23: Troponin I High Sens 7 12/07/21 04:23: Corrected WBC 7.5, Uncorrected WBC Count 7.5, RBC 2.23 L, Hgb 7.8 L, Hct 23.2 L, MCV 103.8 H, MCH 34.7 H, MCHC 33.5, RDW 16.8 H, Plt Count 243, MPV 7.6, Neut % (Auto) 83.6, Lymph % (Auto) 7.8, Canyon % (Auto) 8.3, Eos % (Auto) 0.1, Baso % (Auto) 0.2, Neut # (Auto) 6.2, Lymph # (Auto) 0.6 L, Canyon # (Auto) 0.6, Eos # (Auto) 0.0, Baso # (Auto) 0.0, Nucleated RBC % (auto) 0.1 12/06/21 19:36: Troponin I High Sens 8 12/06/21 19:36: PHA Creatinine Clear 34.32, Sodium 126 L, Potassium 5.5 H, Chloride 100, Carbon Dioxide 16.7 L, Anion Gap 14.8, BUN 26 H, Creatinine 1.82 H, Est GFR ( Amer) 35, Est GFR (Non-Af Amer) 29, Glucose 140 H, Calcium 7.0 L, Magnesium 1.6 12/06/21 07:38: MATY Homogeneous Pattern N/A 12/04/21 11:47: Ionized Calcium 3.5 L Microbiology Microbiology: 12/05/21 07:00 Urine - Clean-Voided Midstream Urine Culture - Final Klebsiella oxytoca 12/06/21 12:37 Stool Occult Blood (FIT) - Final Assessment/Plan (1) Hydronephrosis: Plan: This lady has very mild right-sided hydronephrosis found via renal ultrasound. We do not know the etiology of this. Her kidney function is improving daily. Icould not find any evidence of a UA on the chart. For now, we will have her get a noncontrast CT scan of the abdomen and pelvis tomake sure she does not have any obstructive phenomenon within the right ureter. Presuming she does not, a conservative approach would be warranted at this time. Code(s): N13.30 - Unspecified hydronephrosis (2) Acute kidney injury: Plan: Her acute kidney injury is steadily resolving with conservative management. Heradmission creatinine was 2.7 and today's creatinine is 1.7. She is feeling muchbetter clinically at this time. It seems unlikely that an obstructive phenomenon was the cause of her acute kidney injury. Code(s): N17.9 - Acute kidney failure, unspecified (3) Urethral stenosis: Plan: She gives a history of having difficulty getting the urine out intermittently. She has also had some urinary infections but nothing frequent. Plan as an outpatient, we will do cystoscopy and urethral dilation. Over 30 minutes of clinical time was spent reviewing the chart, her ultrasound and talking with the patient. Thank you for letting me take part in her care. Documented By: Luis Sams MD 12/08/21 1544 Signed By: <Electronically signed by MD Luis Sams> 12/08/21 3755 [facility] Work Phone: [phone]) [phone] Progress note Author William Esposito [facility] December 08, 2021 11:01am Note Date/Time December 08, 2021 10 :55am [facility] [address] [place] [address] Nephrology Progress Note Signed Patient: Juanita Redman MR#: [id number] : 1965 Acct:[id number] Age/Sex: 56 / F Adm Date: 2 Loc: Room: [address] [place] [address] Type: ADM IN Attending Dr: Claude Castellanos MD Copies to: ~ Date of Service: 12/08/2021 Subjective Subjective Narrative: Mrs. Redman is a 56-year-old white female with history of COPD, smoker, alcohol abuse and hypothyroidism on levothyroxine who was transferred from [facility] on 12/04 for abnormal blood work showing creatinine elevated 2.77 with low sodium 124 and low potassium 3.2 with very low calcium 5.8. Patient presented with lightheadedness and she passed out with momentary loss of consciousness. Patient stated that it could be related to alcohol since she hasbeen having nausea, vomiting and diarrhea for 2 days before admission. Patient was given 2 L of IV fluid and 2 g of magnesium and 1 g of calcium before transfer to [facility]. Today's creatinine is slightly better 1.87 mg/dL howevershe continues to have low sodium 125 mmol/L hence nephrology was consulted. Patient is being seen and examined in her room. She is awake and she feels muchbetter. She is on IV fluid lactated Ringer with potassium chloride 20 mill equivalent per liter at 75 cc/h. Blood pressure did improve 138/68. On admission her hemoglobin was 9.7 however it dropped down to 7.7 g/dL today with IV hydration. She denies any active bleeding. She has elevated MCV and MCH with borderline B12 and folic acid that is currently being replaced. On admission, troponin was elevated more than 100 currently down to 20 pg/mL. She denies any chest pain. Iron stores was also borderline low with ferritin 80.8 and iron saturation 9%. Urine tox screen was positive for benzodiazepines. Urine analysis showed cloudy urine with specific gravity 1.013, 30 mg proteinuria, 4+ leukocytes trace and innumerable WBCs. Urine culture is pending. INTERVAL HISTORY Patient was seen and examined at bedside. She is feeling better denies any chest pain palpitation cough nausea vomit diarrhea shortness of breath. She wasseen by the GI for anemia and recommend outpatient EGD and colonoscopy. She wasseen by cardiology for A. fib and recommended no anticoagulation or antiarrhythmic medications. Exam Physical Exam Vital Signs: Temp Pulse Resp BP Pulse Ox O2 Del Method 97.6 F 70 18 160/89 H 98 Room Air 12/08/21 08:30 12/08/21 08:30 12/08/21 08:30 12/08/21 08:30 12/08/21 08:30 12/08/21 08:30 Narrative: General: Appears comfortable and not in distress Heart: S1-S2, no rub Lung: Bilateral air entry, no wheezing or crackles Abdomen: Soft, positive bowel sounds Extremities: No edema, no cyanosis Head: Atraumatic, normocephalic Ear: No gross hearing Deficit or external ear redness Eyes: No pallor or redness Neck: No JVD or visible mass Skin: No rashes or bruises DIRECTOR OF ELEMENTARY EDUCATION: Awake,Alert, following simple command Musculoskeletal: No joint swelling or limitation of movement Psychiatric: Cooperative, normal mood and affect abdominal hysterectomy Objective Intake and Output I&O: Intake & Output 12/05/21 12/06/21 12/07/21 12/08/21 23:59 23:59 23:59 23:59 Intake Total 3658.2 / 3658.2 1794.2 / 1794.2 1186.2 / 1186.2 342 / 342 Output Total 2 / 2 500 / 500 Balance 3658.2 / 3658.2 1792.2 / 1792.2 1186.2 / 1186.2 -158 / -158 Weight 75 kg 75.8 kg 84.9 kg 87.1 kg Meds and Allergies Meds: Active Medications Acetaminophen (Acetaminophen 325 Mg Tablet) 650 mg PO Q6HR PRN PRN Reason: Pain Scale 1 - 3 or fever Stop: 12/04/22 10:15 Last Admin: 12/07/21 21:50 Dose: 650 mg Ascorbic Acid (Ascorbic Acid 500 Mg Tablet) 500 mg PO BID.WITH.BFAST.LUNCH [facility] Stop: 12/05/22 07:59 Last Admin: 12/08/21 08:29 Dose: 500 mg Calcium Carbonate (Calcium Carbonate 500 Mg Tablet) 1,000 mg PO BID [facility] Stop: 12/06/22 09:29 Last Admin: 12/08/21 08:29 Dose: 1,000 mg Chlordiazepoxide HCl (Chlordiazepoxide 25 Mg Capsule) 0 mg PO PROTOCOL PRN; Protocol PRN Reason: Alcohol Withdrawal Stop: 06/04/22 19:32 Last Admin: 12/07/21 21:50 Dose: 50 mg Magnesium Sulfate (Magnesium Sulf 2gm-*Swfi*) 2 gm in 50 mls @ 25 mls/hr IV DAILY PRN PRN Reason: Magnesium Level < 1.5 Stop: 12/04/22 10:15 Folic Acid 1 mg/ Dextrose 50.2 mls @ 100.4 mls/hr IV DAILY [facility] Stop: 12/04/22 13:59 Last Admin: 12/08/21 09:44 Dose: 100 mls/hr Thiamine HCl 200 mg/ Sodium (Chloride) 102 mls @ 204 mls/hr IV TID [facility] Stop: 12/04/22 21:59 Last Infusion: 12/08/21 08:59 Dose: Infused Levofloxacin (Levofloxacin 750 Mg Tablet) 750 mg PO Q48H [facility] Levothyroxine Sodium (Levothyroxine 50 Mcg Tablet) 50 mcg PO DAILY.0630 [facility] Stop: 12/05/22 06:29 Last Admin: 12/08/21 05:51 Dose: 50 mcg Metoprolol Succinate (Metoprolol Succinate 100 Mg Tab.Er.24h) 100 mg PO DAILY [facility] Stop: 12/04/22 17:43 Last Admin: 12/08/21 08:29 Dose: 100 mg Metoprolol Tartrate (Metoprolol Tartrate 5 Mg/5 Ml Vial) 5 mg IV-PUSH Q4H PRN PRN Reason: tachycardia Stop: 12/06/22 19:17 Nicotine (Nicotine Patch 21 Mg/24hr 1 Each Patch.Td24) 1 each TRANSDERML DAILY [facility] Stop: 12/06/22 08:59 Last Admin: 12/08/21 08:29 Dose: Not Given Omeprazole (Omeprazole 20 Mg Capsule.Dr) 20 mg PO DAILY [facility] Stop: 12/05/22 08:59 Last Admin: 12/08/21 08:28 Dose: 20 mg Potassium Chloride (Potassium Chloride Er 20 Meq Tab.Er.Prt) 20 meq PO DAILY PRN PRN Reason: Hypokalemia Stop: 12/04/22 10:15 Potassium Chloride (Potassium Chloride Er 20 Meq Tab.Er.Prt) 40 meq PO DAILY PRN PRN Reason: Hypokalemia Stop: 12/04/22 10:15 Sodium Bicarbonate (Sodium Bicarbonate 650 Mg Tablet) 650 mg PO TID [facility] Stop: 12/07/22 13:59 Last Admin: 12/08/21 08:28 Dose: 650 mg Sodium Chloride (Sodium Chloride 0.9 % 10 Ml Syringe) 0 ml IV-PUSH PRN PRN PRN Reason: Flush Stop: 12/04/22 10:15 Last Admin: 12/05/21 22:07 Dose: 10 ml Vitamin D (Cholecalciferol 10 Mcg (400 Units) Tablet) 20 mcg PO BID.WITH.MEALS [facility] Stop: 12/07/22 07:59 Last Admin: 12/08/21 08:28 Dose: 20 mcg Allergies cephalexin [From Keflex] Adverse Reaction (Verified 12/04/21 10:03) Nausea prednisone Adverse Reaction (Verified 12/04/21 10:03) Swelling Results Labs CBC & Chem 7: 12/08/21 05:53 12/08/21 05:53 Labs: 12/07/21 12/08/21 12:45 05:53 BUN 22 Creatinine 1.79 H Protein/Creatinin Ratio 359 H Radiology Impressions Impressions - last 24 hours: Impressions Renal Ultrasound 12/07/21 08:41 IMPRESSION: There is right-sided hydronephrosis which is of uncertain etiology. There is a cyst which appears be relatively simple in nature along the left kidney measuring up to 4.3 cm in greatest dimension. No evidence of mass. Impression dictated by: Unique Enciso M.D.12/07/2021 4:27 PM Dictation Location: [place] [address] Any impression(s) listed above is documentation that was entered by the reading physician into a diagnostic report(s) for Juanita Redman. I have reviewed the report(s) and am incorporating any findings in the treatment plan of this patient where applicable. A&P - Nephrology Assessment/Plan (1) Hyponatremia: Assessment/Problem Details: Patient has hyponatremia in the setting of volume depletion. She also has a history of alcohol abuse with low albumin and protein calorie malnutrition that may contribute to tubular dilution defect. She was admitted with sodium 124 mmol/L, no previous records for previous sodium so it is not clear if she has chronic hyponatremia. Patient has been alcoholic and she has COPD and there is a high possibility that she may have SIADH. (2) Hypomagnesemia: Assessment/Problem Details: Patient had hypocalcemia and hypomagnesemia on admission that was repleted. Hypomagnesemia possibly related to alcohol abuse and decreased oral intake (3) Anemia: Assessment/Problem Details: Patient had anemia on admission 9 g/dL with a drop down to 7.7 g/dL with IV hydration. It is not clear if the patient has a bleeding. She has macrocytic anemia with elevated MCV in the setting of low folic acid and borderline B12 that is being repleted. Possibility of surgical varices or active bleeding cannot be excluded. (4) Alcohol abuse: Assessment/Problem Details: Patient has long history of alcohol abuse, she stated that currently cut down to two fifth/week (5) Hypocalcemia: Assessment/Problem Details: Patient has severe hypocalcemia and hypomagnesemia possibly related to alcohol abuse with decreased oral intake. He could have vitamin D deficiency as well. (6) Hydronephrosis: Assessment/Problem Details: She has hydronephrosis due to the unclear etiology. Plan * Consult urology for right-sided hydronephrosis. * Will follow serum free light chain ratio, SPEP, UPEP, serum and urine immunofixation. * Continue ergocalciferol 50,000 weekly. * Continue holding lisinopril. Patient is back on metoprolol 100 mg daily. * Monitor daily intake and output and renal panel. * Continue antibiotics for UTI as per the primary team. Documented By: William Esposito MD 12/08/21 1053 Signed By: <Electronically signed by William Esposito MD> 12/08/21 1101 [facility] Work Phone: [phone]) 613-217508-30-2022 Progress note Author Claude Castellanos [facility] December 07, 2021 8:00pm Note Date/Time December 07, 2021 8: 00pm [facility] [address] [place] [address] Hospitalist Progress Note Signed Patient: Juanita Redman MR#: [id number] : 1965 Acct:[id number] Age/Sex: 56 / F Adm Date: 2 Loc: 4P Room: [address] [place] [address] Type: ADM IN Attending Dr: Claude Castellanos MD Copies to: ~ Date of Service: 12/07/2021 Subjective Subjective Narrative: Patient is with no issues or complaints on exam today and no acute events overnight Exam Physical Exam Vital Signs: Temp Pulse Resp BP Pulse Ox O2 Del Method 97.6 F 71 18 155/72 H 99 Room Air 12/07/21 12:00 12/07/21 16:00 12/07/21 16:00 12/07/21 16:00 12/07/21 12:00 12/07/21 12:00 Const General: cooperative, healthy appearing and comfortable Resp Effort & Inspection: normal respiratory effort and able to speak in complete sentences Neuro General: patient alert, patient awake and patient oriented x3 Psych Appearance: grossly normal Objective Lab Results CBC & Chem 7: 12/07/21 04:23 12/07/21 04:24 Microbiology Results Microbiology 12/05/21 07:00 Urine - Clean-Voided Midstream Urine Culture - Final Klebsiella oxytoca Meds Allergies and Active Meds Allergies cephalexin [From Keflex] Adverse Reaction (Verified 12/04/21 10:03) Nausea prednisone Adverse Reaction (Verified 12/04/21 10:03) Swelling Active Meds: Active Medications Generic Name Dose Route Start Last Admin Trade Name Freq PRN Reason Stop Dose Admin Acetaminophen 650 mg 12/04/21 10:16 Acetaminophen 325 Mg Tablet PO 12/04/22 10:15 Q6HR PRN Pain Scale 1 - 3 or fever Ascorbic Acid 500 mg 12/05/21 08:00 12/07/21 11:37 Ascorbic Acid 500 Mg Tablet PO 12/05/22 07:59 500 mg BID.WITH.BFAST.LUNCH [facility] Administration Calcium Carbonate 1,000 mg 12/06/21 09:30 12/07/21 08:11 Calcium Carbonate 500 Mg Tablet PO 12/06/22 09:29 1,000 mg BID [facility] Administration Chlordiazepoxide HCl 0 mg 12/06/21 19:33 Chlordiazepoxide 25 Mg Capsule PO 06/04/22 19:32 PROTOCOL PRN Alcohol Withdrawal Protocol Magnesium Sulfate 2 gm in 50 mls @ 25 mls/hr 12/04/21 10:16 Magnesium Sulf 2gm-*Swfi* IV 12/04/22 10:15 DAILY PRN Magnesium Level < 1.5 Folic Acid 1 mg/ Dextrose 50.2 mls @ 100.4 mls/hr 12/04/21 14:00 12/07/21 09:30 IV 12/04/22 13:59 Infused DAILY [facility] Infusion Thiamine HCl 200 mg/ Sodium 102 mls @ 204 mls/hr 12/04/21 22:00 12/07/21 14:59 Chloride IV 12/04/22 21:59 Infused TID [facility] Infusion Levofloxacin 750 mg 12/09/21 09:00 Levofloxacin 750 Mg Tablet PO Q48H [facility] Levothyroxine Sodium 50 mcg 12/05/21 06:30 12/07/21 05:42 Levothyroxine 50 Mcg Tablet PO 12/05/22 06:29 50 mcg DAILY.0630 [facility] Administration Metoprolol Succinate 100 mg 12/04/21 17:44 12/07/21 08:12 Metoprolol Succinate 100 Mg Tab.Er.24h PO 12/04/22 17:43 100 mg DAILY [facility] Administration Metoprolol Tartrate 5 mg 12/06/21 19:18 Metoprolol Tartrate 5 Mg/5 Ml Vial IV-PUSH 12/06/22 19:17 Q4H PRN tachycardia Nicotine 1 each 12/06/21 09:00 12/07/21 08:12 Nicotine Patch 21 Mg/24hr 1 Each Patch.Td24 TRANSDERML 12/06/22 08:59 1 each DAILY [facility] Administration Omeprazole 20 mg 12/05/21 09:00 12/07/21 08:12 Omeprazole 20 Mg Capsule.Dr PO 12/05/22 08:59 20 mg DAILY [facility] Administration Potassium Chloride 20 meq 12/04/21 10:16 Potassium Chloride Er 20 Meq Tab.Er.Prt PO 12/04/22 10:15 DAILY PRN Hypokalemia Potassium Chloride 40 meq 12/04/21 10:16 Potassium Chloride Er 20 Meq Tab.Er.Prt PO 12/04/22 10:15 DAILY PRN Hypokalemia Sodium Bicarbonate 650 mg 12/07/21 14:00 12/07/21 13:31 Sodium Bicarbonate 650 Mg Tablet PO 12/07/22 13:59 650 mg TID [facility] Administration Sodium Chloride 0 ml 12/04/21 10:16 12/05/21 22:07 Sodium Chloride 0.9 % 10 Ml Syringe IV-PUSH 12/04/22 10:15 10 ml PRN PRN Administration Flush Vitamin D 20 mcg 12/07/21 08:00 12/07/21 17:15 Cholecalciferol 10 Mcg (400 Units) Tablet PO 12/07/22 07:59 20 mcg BID.WITH.MEALS [facility]INT[facility] Administration A&P - Hospitalist Assessment/Plan (1) Acute kidney injury: (2) Hyponatremia: (3) Hypocalcemia: (4) Hypomagnesemia: (5) Hypokalemia: (6) Anemia: (7) Alcohol abuse: (8) HTN (hypertension): (9) Hypothyroid: (10) Folic acid deficiency: (11) Moderate protein-calorie malnutrition: (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 Acute kidney injury Nephrology following for recommendations and management 2. Electrolyte derangements Nephrology following for recommendations and management as above 3. Anemia Stable; continue to monitor 4. Urinary tract infection Continue antibiotic with Levaquin 5. Alcohol abuse/dependence Continue CIWA protocol Documented By: Claude Castellanos MD 12/07/211956 Signed By: <Electronically signed by Claude Castellanos MD> 12/07/211999 [facility] Work Phone: [phone] Consult note Author Kylah Kingsley [facility] December 07, 2021 4:57pm Note Date/Time December 07, 2021 4: 51pm [facility] [address] [place] [address] Cardiology Consult Note Signed Patient: Juanita Redman MR#: [id number] : 1965 Acct:[id number] Age/Sex: 56 / F Adm Date: 2 Loc: Room: [address] [place] [address] Type: ADM IN Attending Dr: Claude Castellanos MD Copies to: DO Claude Rose MD Hassan M Ibrahim, MD, FACC~ Cardiology HPI History of Present Illness Consult Date: 12/07/21 Reason for Consult: Paroxysmal atrial fibrillation HPI: MsMark Vanfleet is a 56 year old female who is being seen at the request of the hospitalist because of paroxysmal atrial fibrillation. Patient presented to [place] emergency department with syncopal event believed to be caused by alcohol intoxication. She was transferred here for further evaluation and was noted to have developed atrial fibrillation that was brief yesterday with spontaneous conversion. The patient acknowledges excessive alcohol use mostly in cocktail drinks up to 6 daily. She does not seem to have any desire to change the habit. She acknowledges a history of SVT in the past requiring ablation with resolution but now with recurrent episode of palpitations that is believed to be caused by paroxysmal atrial fibrillation. The patient has had multiple falls mostly due to alcohol intoxication. She did not have any major injuries. She has no underlying cardiac disease and no previous strokes or bleeding problems. The patient is coherent at the present time and denies any complaints. While she was in [place] emergency department her high-sensitivitytroponin was elevated at 102. She was found to have anemia with a hemoglobin just under 10 g/dL. The patient has no known history of blood loss or liver cirrhosis. She has no underlying pulmonary disease. Review of Systems Review of Systems Review of systems: Patient admits for frequent near syncope and falls mostly when she is intoxicated with alcohol. She has had no strokes or TIAs and denies any gross bleeding. She has no chest pain on exertion and no dyspnea. She has intermittent palpitations that are self-limited. She denies any dysuria or hematuria and denies any recent febrile illnesses. Other review of system are unremarkable or normal PMFSH Vaccinated for COVID-19?: No Medical History (Updated 12/07/21 @ 16:54 by Kylah Kingsley MD) Alcohol abuse Anemia COPD (chronic obstructive pulmonary disease) GERD (gastroesophageal reflux disease) HTN (hypertension) Hypothyroid Myocardial infarction Noncompliance Pneumonia Seasonal allergies Smoker SVT (supraventricular tachycardia) Surgical History History of breast lump removal History of History of radiofrequency ablation (RFA) procedure for cardiac arrhythmia Family History Father Diabetes Lung cancer HTN (hypertension) Brother HTN (hypertension) Mother Heart disease HTN (hypertension) Grandparent Diabetes Family/Other Breast cancer Social History Smoking Status: Current every day smoker Tobacco Type: cigarettes Substance Use Type: Alcohol Meds Medications and Allergies Allergies cephalexin [From Keflex] Adverse Reaction (Verified 12/04/21 10:03) Nausea prednisone Adverse Reaction (Verified 12/04/21 10:03) Swelling Home Medications diphenhydramine HCl 25 mg capsule (Benadryl) 25 mg PO BID 12/04/21 [History Confirmed 12/04/21] levothyroxine 100 mcg tablet 100 mcg PO DAILY 12/04/21 [History Confirmed 12/04/21] lisinopril 20 mg tablet 20 mg PO DAILY 12/04/21 [History Confirmed 12/04/21] metoprolol succinate 100 mg tablet,extended release 24 hr 100 mg PO DAILY 12/04/21 [History Confirmed 12/04/21] omeprazole 20 mg capsule,delayed release 20 mg PO DAILY 12/04/21 [History Confirmed 12/04/21] Exam Physical Exam Vital Signs: Temp Pulse Resp BP Pulse Ox O2 Del Method 97.6 F 71 18 155/72 H 99 Room Air 12/07/21 12:00 12/07/21 16:00 12/07/21 16:00 12/07/21 16:00 12/07/21 12:00 12/07/21 12:00 Const General: cooperative, comfortable and no acute distress Nutritional Appearance: obese Orientation: alert, awake and oriented x3 HEENT Head: normal to inspection, normocephalic and atraumatic Ears: hearing grossly normal bilaterally Nose: external nose normal Face and sinus: normal facial exam Eyes General: appearance normal, both eyes and all related structures Conjunctivae: conjunctivae normal Pupils: PERRL Neck Neck: normal visual inspection, no lymphadenopathy, trachea midline and supple Neck mass: No Thyroid: thyroid normal Carotids: normal carotid upstroke Resp Effort & Inspection: normal respiratory effort Auscultation: clear to auscultation bilaterally Cardio Jugular venous pressure: no JVD Palpation: normal PMI Rate: regular rate Rhythm: regular rhythm Heart Sounds: S1 normal and S2 normal GI Inspection: normal to inspection Palpation: soft and no hepatosplenomegaly Auscultation: normal bowel sounds Extrem General: no clubbing, cyanosis or edema Results Labs CBC & CMP: 12/07/21 04:23 12/07/21 04:24 Lab results: CBC 12/07/21 Range/Units 04:23 RBC 2.23 L (3.60-5.00) x10E6/uL Hgb 7.8 L (11.8-15.4) g/dL Hct 23.2 L (34.0-46.4) % Plt Count 243 (150-450) x10E3/uL Neut # (Auto) 6.2 (1.8-7.7) x10E3/uL Lymph # (Auto) 0.6 L (1.00-4.8) x10E3/uL Canyon # (Auto) 0.6 (0.0-0.8) x10E3/uL Eos # (Auto) 0.0 (0.0-0.45) x10E3/uL Baso # (Auto) 0.0 (0.0-0.2) x10E3/uL Comprehensive Metabolic Panel 12/06/21 12/07/21 Range/Units 19:36 04:24 Sodium 126 L 128 L (136-146) mmol/L Potassium 5.5 H 5.2 H (3.5-5.1) mmol/L Chloride 100 105 (95-114) mmol/L Carbon Dioxide 16.7 L 18.5 L (22.0-30.0) mmol/L BUN 26 H 27 H (9-23) mg/dL Creatinine 1.82 H 1.75 H (0.44-1.03) mg/dL Glucose 140 H 124 H (70-100) mg/dL Calcium 7.0 L 7.2 L (8.2-10.2) mg/dL Intake and Output 12/07/21 12/07/21 12/07/21 07:59 15:59 23:59 Intake Total 150 / 502.2 352.2 / 502.2 Balance 150 / 502.2 352.2 / 502.2 Intake: IV 152.2 / 152.2 Folic Acid 1 mg In Dextrose 5 % 50.2 / 50.2 in Water 50 ml @ 100.4 mls/hr IV DAILY [facility] Rx#:[id number] Thiamine 200 mg In Sodium 102 / 102 Chloride 0.9% 100 ml 100 ml @ 204 mls/hr IV TID [facility] Rx#: [id number] Oral 150 / 350 200 / 350 Other: # Unmeasured Voids 3 2 # Bowel Movements 1 1 Weight 84.9 kg Date of Last Bowel Movement 12/07/21 Patient Weight 12/07/21 23:59 Weight 84.9 kg Lab 12/04/21 11:47 PT 12.2 INR 1.1 APTT 29.9 A&P - Cardiology (1) Paroxysmal atrial fibrillation with RVR: Plan: Since this is likely caused by alcohol intoxication will not utilize anticoagulation or antiarrhythmic therapy at this stage. Alcohol addiction therapy is recommended. Since the patient has tendency for frequent falls anticoagulation is too risky. Patient had an echocardiogram which showed normalleft ventricle ejection fraction with no significant valvular heart disease Code(s): I48.0 - Paroxysmal atrial fibrillation (2) Alcohol abuse: Assessment/Problem Details: This is a life-threatening problem for this patient and need to be addressed aggressively in alcohol rehab programs Code(s): F10.10 - Alcohol abuse, uncomplicated (3) Anemia: Assessment/Problem Details: Hemoglobin dropped further since admission. Gastroenterology has been on the case. No obvious bleeding source Code(s): D64.9 - Anemia, unspecified (4) Hypokalemia: Assessment/Problem Details: Due to alcoholism and poor oral intake Code(s): E87.6 - Hypokalemia (5) Hypomagnesemia: Assessment/Problem Details: Due to poor oral intake and alcoholism Code(s): E83.42 - Hypomagnesemia (6) Hyponatremia: Assessment/Problem Details: Caused by poor oral intake Code(s): E87.1 - Hypo-osmolality and hyponatremia (7) Acute kidney injury: Assessment/Problem Details: Renal function is improving with hydration Code(s): N17.9 - Acute kidney failure, unspecified Documented By: Kylah Kingsley MD, [facility] 2 1649 Signed By: <Electronically signed by [facility] Kylah Kingsley> 12/07/21 4467 [facility] [place] Work Phone: 1(322) 919-241308-30-2022 Progress note Author William Esposito [facility] December 07, 2021 10:38am Note Date/Time December 07, 2021 10 :34am [facility] [address] [place] [address] Nephrology Progress Note Signed Patient: Juanita Redman MR#: [id number] : 1965 Acct:[id number] Age/Sex: 56 / F Adm Date: 2 Loc: 4 Room: 1B5060-3 Type: ADM IN Attending Dr: Claude Castellanos MD Copies to: ~ Date of Service: 12/07/2021 Subjective Subjective Narrative: Mrs. Redman is a 56-year-old white female with history of COPD, smoker, alcohol abuse and hypothyroidism on levothyroxine who was transferred from [facility] on 12/04 for abnormal blood work showing creatinine elevated 2.77 with low sodium 124 and low potassium 3.2 with very low calcium 5.8. Patient presented with lightheadedness and she passed out with momentary loss of consciousness. Patient stated that it could be related to alcohol since she hasbeen having nausea, vomiting and diarrhea for 2 days before admission. Patient was given 2 L of IV fluid and 2 g of magnesium and 1 g of calcium before transfer to [facility]. Today's creatinine is slightly better 1.87 mg/dL howevershe continues to have low sodium 125 mmol/L hence nephrology was consulted. Patient is being seen and examined in her room. She is awake and she feels muchbetter. She is on IV fluid lactated Ringer with potassium chloride 20 mill equivalent per liter at 75 cc/h. Blood pressure did improve 138/68. On admission her hemoglobin was 9.7 however it dropped down to 7.7 g/dL today with IV hydration. She denies any active bleeding. She has elevated MCV and MCH with borderline B12 and folic acid that is currently being replaced. On admission, troponin was elevated more than 100 currently down to 20 pg/mL. She denies any chest pain. Iron stores was also borderline low with ferritin 80.8 and iron saturation 9%. Urine tox screen was positive for benzodiazepines. Urine analysis showed cloudy urine with specific gravity 1.013, 30 mg proteinuria, 4+ leukocytes trace and innumerable WBCs. Urine culture is pending. INTERVAL HISTORY Patient was seen and examined at bedside. Last evening event noted. She was found to be oversedated and was given flumazenil with improvement in mental status. She also found to have A. fib with RVR and was given normal saline 2 L boluses and was moved to the stepdown unit. She converted back to the sinus rhythm. She continued on this on a bicarbonate fluid. Exam Physical Exam Vital Signs: Temp Pulse Resp BP Pulse Ox O2 Del Method 97.8 F 60 19 156/85 H 98 Room Air 12/07/21 07:54 12/07/21 07:54 12/07/21 07:54 12/07/21 07:54 12/07/21 07:54 12/07/21 08:00 Narrative: General: Appears comfortable and not in distress Heart: S1-S2, no rub Lung: Bilateral air entry, no wheezing or crackles Abdomen: Soft, positive bowel sounds Extremities: No edema, no cyanosis Head: Atraumatic, normocephalic Ear: No gross hearing Deficit or external ear redness Eyes: No pallor or redness Neck: No JVD or visible mass Skin: No rashes or bruises DIRECTOR OF ELEMENTARY EDUCATION: Awake,Alert, following simple command Musculoskeletal: No joint swelling or limitation of movement Psychiatric: Cooperative, normal mood and affect abdominal hysterectomy Objective Intake and Output I&O: Intake & Output 12/04/21 12/05/21 12/06/21 12/07/21 23:59 23:59 23:59 23:59 Intake Total 1950.2 / 1950.2 3658.2 / 3658.2 1794.2 / 1794.2 302.2 / 302.2 Output Total 2 / 2 Balance 1950.2 / 1950.2 3658.2 / 3658.2 1792.2 / 1792.2 302.2 / 302.2 Weight 76.4 kg 75 kg 75.8 kg 84.9 kg Meds and Allergies Meds: Active Medications Acetaminophen (Acetaminophen 325 Mg Tablet) 650 mg PO Q6HR PRN PRN Reason: Pain Scale 1 - 3 or fever Stop: 12/04/22 10:15 Ascorbic Acid (Ascorbic Acid 500 Mg Tablet) 500 mg PO BID.WITH.BFAST.LUNCH CINTIA Stop: 12/05/22 07:59 Last Admin: 12/07/21 08:12 Dose: 500 mg Calcium Carbonate (Calcium Carbonate 500 Mg Tablet) 1,000 mg PO BID CINTIA Stop: 12/06/22 09:29 Last Admin: 12/07/21 08:11 Dose: 1,000 mg Chlordiazepoxide HCl (Chlordiazepoxide 25 Mg Capsule) 0 mg PO PROTOCOL PRN; Protocol PRN Reason: Alcohol Withdrawal Stop: 06/04/22 19:32 Magnesium Sulfate (Magnesium Sulf 2gm-*Swfi*) 2 gm in 50 mls @ 25 mls/hr IV DAILY PRN PRN Reason: Magnesium Level < 1.5 Stop: 12/04/22 10:15 Folic Acid 1 mg/ Dextrose 50.2 mls @ 100.4 mls/hr IV DAILY CINTIA Stop: 12/04/22 13:59 Last Infusion: 12/07/21 09:30 Dose: Infused Thiamine HCl 200 mg/ Sodium (Chloride) 102 mls @ 204 mls/hr IV TID CINTIA Stop: 12/04/22 21:59 Last Infusion: 12/07/21 09:17 Dose: Infused Levofloxacin (Levaquin) 750 mg in 150 mls @ 100 mls/hr IV Q48H [facility] Last Admin: 12/07/21 09:31 Dose: 100 mls/hr Sodium Bicarbonate 150 meq/ (Dextrose) 1,150 mls @ 100 mls/hr IV .[id number] [facility] Stop: 12/06/22 19:29 Last Admin: 12/06/21 20:18 Dose: 100 mls/hr Levothyroxine Sodium (Levothyroxine 50 Mcg Tablet) 50 mcg PO DAILY.0630 [facility] Stop: 12/05/22 06:29 Last Admin: 12/07/21 05:42 Dose: 50 mcg Metoprolol Succinate (Metoprolol Succinate 100 Mg Tab.Er.24h) 100 mg PO DAILY [facility] Stop: 12/04/22 17:43 Last Admin: 12/07/21 08:12 Dose: 100 mg Metoprolol Tartrate (Metoprolol Tartrate 5 Mg/5 Ml Vial) 5 mg IV-PUSH Q4H PRN PRN Reason: tachycardia Stop: 12/06/22 19:17 Nicotine (Nicotine Patch 21 Mg/24hr 1 Each Patch.Td24) 1 each TRANSDERML DAILY [facility] Stop: 12/06/22 08:59 Last Admin: 12/07/21 08:12 Dose: 1 each Omeprazole (Omeprazole 20 Mg Capsule.Dr) 20 mg PO DAILY [facility] Stop: 12/05/22 08:59 Last Admin: 12/07/21 08:12 Dose: 20 mg Potassium Chloride (Potassium Chloride Er 20 Meq Tab.Er.Prt) 20 meq PO DAILY PRN PRN Reason: Hypokalemia Stop: 12/04/22 10:15 Potassium Chloride (Potassium Chloride Er 20 Meq Tab.Er.Prt) 40 meq PO DAILY PRN PRN Reason: Hypokalemia Stop: 12/04/22 10:15 Sodium Chloride (Sodium Chloride 0.9 % 10 Ml Syringe) 0 ml IV-PUSH PRN PRN PRN Reason: Flush Stop: 12/04/22 10:15 Last Admin: 12/05/21 22:07 Dose: 10 ml Vitamin D (Cholecalciferol 10 Mcg (400 Units) Tablet) 20 mcg PO BID.WITH.MEALS CINTIA Stop: 12/07/22 07:59 Last Admin: 12/07/21 08:11 Dose: 20 mcg Allergies cephalexin [From Keflex] Adverse Reaction (Verified 12/04/21 10:03) Nausea prednisone Adverse Reaction (Verified 12/04/21 10:03) Swelling Results Labs CBC & Chem 7: 12/07/21 04:23 12/07/21 04:24 Labs: 12/06/21 12/07/21 19:36 04:24 BUN 26 H 27 H Creatinine 1.82 H 1.75 H Radiology Impressions Impressions - last 24 hours: Impressions Chest CT 12/06/21 13:19 IMPRESSION: TINY PLEURAL EFFUSIONS. MINIMAL ATELECTASIS OR SCARRING. MINOR UPPER ABDOMINAL ASCITES. PERINEPHRIC FIBROFATTY STRANDING AND SUSPECTED LEFT RENAL CYST. Impression dictated by: Rossi Salinas M.D.12/06/2021 6:01 PM Dictation Location: [place] [address] Any impression(s) listed above is documentation that was entered by the reading physician into a diagnostic report(s) for Juanita Reynalaxmidalton. I have reviewed the report(s) and am incorporating any findings in the treatment plan of this patient where applicable. A&P - Nephrology Assessment/Plan (1) Hyponatremia: Assessment/Problem Details: Patient has hyponatremia in the setting of volume depletion. She also has a history of alcohol abuse with low albumin and protein calorie malnutrition that may contribute to tubular dilution defect. She was admitted with sodium 124 mmol/L, no previous records for previous sodium so it is not clear if she has chronic hyponatremia. Patient has been alcoholic and she has COPD and there is a high possibility that she may have SIADH. (2) Hypomagnesemia: Assessment/Problem Details: Patient had hypocalcemia and hypomagnesemia on admission that was repleted. Hypomagnesemia possibly related to alcohol abuse and decreased oral intake (3) Anemia: Assessment/Problem Details: Patient had anemia on admission 9 g/dL with a drop down to 7.7 g/dL with IV hydration. It is not clear if the patient has a bleeding. She has macrocytic anemia with elevated MCV in the setting of low folic acid and borderline B12 that is being repleted. Possibility of surgical varices or active bleeding cannot be excluded. (4) Alcohol abuse: Assessment/Problem Details: Patient has long history of alcohol abuse, she stated that currently cut down to two fifth/week (5) Hypocalcemia: Assessment/Problem Details: Patient has severe hypocalcemia and hypomagnesemia possibly related to alcohol abuse with decreased oral intake. He could have vitamin D deficiency as well. Plan * Stop sodium bicarbonate drip. We will start oral sodium bicarbonate 650 mg p.o. 3 times daily * Check renal ultrasound to evaluate the renal anatomy. Check UPCR * Continue ergocalciferol 50,000 weekly. * Continue holding lisinopril. Patient is back on metoprolol 100 mg daily. * Continue IV ferric gluconate 250 mg daily x4 doses * Monitor daily intake and output and renal panel. * Continue antibiotics for UTI as per the primary team. Documented By: William Esposito MD 12/07/21 1029 Signed By: <Electronically signed by William Esposito MD> 12/07/21 1038 [facility] Work Phone: [phone]) 480-629608-29-2022 Progress note Author Hong Mcintosh [facility] December 06, 2021 7:32pm Note Date/Time December 06, 2021 7: 32pm [facility] [address] [place] [address] Hospitalist Progress Note Signed Patient: Juanita Redman MR#: [id number] : 1965 Acct:[id number] Age/Sex: 56 / F Adm Date: 2 Loc: Room: [address] [place] [address] Type: ADM IN Attending Dr: Hong Mcintosh DO Copies to: ~ Date of Service: 12/06/2021 Subjective Subjective Narrative: In the overnight hours the patient was found to be drinking alcohol from a bottle that she had brought in from home. Security was contacted and the bottlewas placed in secure storage by security. We reached out to them and this was described as typical 20 ounce water bottle of which only about 20% of the liquidwas missing. It has also come to be known that when the patient first came herefrom the outside hospital she was concerned about missing her blood pressure medication so she took her own Toprol and JACINTO inhibitor. She has a small coolerin her room which some foods from home which is not appropriately chilled and has a very foul odor when it is opened. Around lunchtime nursing staff asked me to see the patient urgently. She had been doing well this morning and ambulating independently with her IV pole into the bathroom to use the toilet. She had been making repeated trips to the bathroom. She had been awake and alert earlier during the daytime and was taking her food. She she seemed to be functioning normally. For this acute episode and aide was with her and saw her become unconscious. Despite numerous efforts she would not be arousable enough to wake up while in the bathroom so nursing staff assisted her back into bed. Her arms and legs seem to be cool andclammy. She was put in Trendelenburg position. When this happened she was about 75% of the way completed on her IV iron infusion. In bed she had a systolic blood pressure low at 50 over palp. The IV ferlicit infusion had already been stopped. Her lactated Ringer's was stopped and then she was given normal saline bolus wide open. While she was lying in bed with minimal consciousness she did void urine and stool. There is no evidence of recent or remote blood products in the stool as it is very walton and yellow. There is no evidence during this entire time of seizure event. I did illicit equal responses to painful stimuli to both her upper extremities and lower extremities. Her face was normal without any asymmetry or facial droop. When stimulated she would open her eyes and follow some brief commands and then become unconscious again. She also did have a sharp and appropriate response mariposa ammonia capsule that I held in front of her face for about 60 seconds. In the overnight hours she was started on CIWA protocol and Ativan, which would have been on the orders of the nighttime hospitalist. A small dose of Romaziconwas used out of the possibility that the Ativan had been overly sedating. With this she did seem to wake up and become perky and then friendly to the nursing staff. Later in the afternoon she developed an atrial fibrillation with rapid ventricular response. I believe this to be a new diagnosis of Atrial fibrillation for her. She seems to be at extremely high risk for Atrial fibrillation, given severe alcoholism, hypokalemia, hypomagnesemia, body habitus, and no history of heart issues. I do believe her treatment in the pastwas limited to 2 different ablations for supraventricular tachycardia that she reported were completed at the [facility]. Given her vasovagal syncope in the bathroom earlier and then the development of A. fib patient was moved to the progressive unit for closer monitoring. Her blood pressures are on the soft side and she may require Cardizem drip or even amiodarone drip if atrial fibrillation becomes challenging to control. I followed up on the patient again in the evening. She was awake and sitting upright in bed. Right now she has returned to normal sinus rhythm. Cardizem drip has not yet been started. She has a dinner plate in front of her and is contemplating eating it. She says that she had 1 episode of diarrhea in the afternoon but it does not seem to be bothering her anymore. She denies any chest pain or pressure at this time. She denies any shortness of breath or cough. No headache or lightheadedness or dizziness. She seems to have no memory of the syncopal event on the toilet earlier today. Exam Physical Exam Vital Signs: Temp Pulse Resp BP Pulse Ox O2 Del Method 97.4 F L 87 16 134/94 100 Room Air 12/06/21 14:47 12/06/21 17:49 12/06/21 17:49 12/06/21 17:49 12/06/21 17:49 12/06/21 17:49 Narrative: Re-Examination at the dinnertime: GEN: Awake, alert, oriented. Not tremulous Head: Normal Cephalic, Atraumatic. Lungs: Clear to auscultation bilaterally, no wheezing, no crackles. Heart: Regular rate and rhythm, no murmurs, rubs, or gallops. Abdomen: Soft, normal bowel sounds, no rigidity, guarding, or acute peritoneal signs. Extremities: No swelling or cords in the calves bilaterally, no edema in the ankles bilaterally. Objective Lab Results CBC & Chem 7: 12/06/21 07:38 12/06/21 07:38 Microbiology Results Microbiology 12/06/21 12:37 Stool Occult Blood (FIT) - Final 12/05/21 07:00 Urine - Clean-Voided Midstream Urine Culture - Preliminary Gram Negative Bacilli Meds Allergies and Active Meds Allergies cephalexin [From Keflex] Adverse Reaction (Verified 12/04/21 10:03) Nausea prednisone Adverse Reaction (Verified 12/04/21 10:03) Swelling Active Meds: Active Medications Generic Name Dose Route Start Last Admin Trade Name Freq PRN Reason Stop Dose Admin Acetaminophen 650 mg 12/04/21 10:16 Acetaminophen 325 Mg Tablet PO 12/04/22 10:15 Q6HR PRN Pain Scale 1 - 3 or fever Ascorbic Acid 500 mg 12/05/21 08:00 12/06/21 15:01 Ascorbic Acid 500 Mg Tablet PO 12/05/22 07:59 Not Given BID.WITH.BFAST.LUNCH CINTIA Calcium Carbonate 1,000 mg 12/06/21 09:30 12/06/21 11:13 Calcium Carbonate 500 Mg Tablet PO 12/06/22 09:29 Not Given BID CINTIA Magnesium Sulfate 2 gm in 50 mls @ 25 mls/hr 12/04/21 10:16 Magnesium Sulf 2gm-*Swfi* IV 12/04/22 10:15 DAILY PRN Magnesium Level < 1.5 Folic Acid 1 mg/ Dextrose 50.2 mls @ 100.4 mls/hr 12/04/21 14:00 12/06/21 16:14 IV 12/04/22 13:59 Infused DAILY CINTIA Infusion Thiamine HCl 200 mg/ Sodium 102 mls @ 204 mls/hr 12/04/21 22:00 12/06/21 16:14 Chloride IV 12/04/22 21:59 Infused TID CINTIA Infusion Levofloxacin 750 mg in 150 mls @ 100 mls/hr 12/05/21 09:00 12/06/21 16:14 Levaquin IV Infused Q48H [facility] Infusion Ferric Sodium Gluconate 270 mls @ 135 mls/hr 12/06/21 09:00 12/06/21 16:15 Complex 250 mg/ Sodium IV 12/09/21 08:59 0 mls/hr Chloride QAM CINTIA Infusion Sodium Bicarbonate 150 meq/ 1,150 mls @ 100 mls/hr 12/06/21 09:30 12/06/21 11:01 Dextrose IV 12/06/21 20:59 100 mls/hr .[id number] CINTIA Administration Sodium Chloride 1,000 mls @ 150 mls/hr 12/06/21 13:30 12/06/21 14:50 0.9% Sodium Chloride 1,000 Ml IV 12/06/22 13:29 150 mls/hr .Q6H40M CINTIA Administration Diltiazem HCl 100 mg in 100 mls @ 10 mls/hr 12/06/21 18:00 12/06/21 18:51 Cardizem IV 12/06/22 17:59 Not Given .Q10H CINTIA Protocol 10 MG/HR Sodium Chloride 1,000 mls @ 20 mls/hr 12/06/21 18:00 12/06/21 18:52 0.9% Sodium Chloride 1,000 Ml IV 12/06/22 17:59 Not Given .Q24H CINTIA Levothyroxine Sodium 50 mcg 12/05/21 06:30 12/06/21 05:30 Levothyroxine 50 Mcg Tablet PO 12/05/22 06:29 Not Given DAILY.0630 CINTIA Lorazepam 0 mg 12/05/21 22:57 12/05/21 23:26 Lorazepam 1 Mg Tablet PO 06/03/22 22:56 4 mg PROTOCOL PRN Administration Alcohol Withdrawal Protocol Lorazepam 0 mg 12/05/21 22:57 Lorazepam 2 Mg/Ml Vial IM 06/03/22 22:56 PROTOCOL PRN Alcohol Withdrawal Protocol Metoprolol Succinate 100 mg 12/04/21 17:44 12/06/21 11:12 Metoprolol Succinate 100 Mg Tab.Er.24h PO 12/04/22 17:43 Not Given DAILY CINTIA Nicotine 1 each 12/06/21 09:00 12/06/21 15:07 Nicotine Patch 21 Mg/24hr 1 Each Patch.Td24 TRANSDERML 12/06/22 08:59 Not Given DAILY CINTIA Omeprazole 20 mg 12/05/21 09:00 12/06/21 11:13 Omeprazole 20 Mg Capsule.Dr KHAN 12/05/22 08:59 Not Given DAILY CINTIA Potassium Chloride 20 meq 12/04/21 10:16 Potassium Chloride Er 20 Meq Tab.Er.Prt PO 12/04/22 10:15 DAILY PRN Hypokalemia Potassium Chloride 40 meq 12/04/21 10:16 Potassium Chloride Er 20 Meq Tab.Er.Prt PO 12/04/22 10:15 DAILY PRN Hypokalemia Sodium Chloride 0 ml 12/04/21 10:16 12/05/21 22:07 Sodium Chloride 0.9 % 10 Ml Syringe IV-PUSH 12/04/22 10:15 10 ml PRN PRN Administration Flush A&P - Hospitalist Assessment/Plan (1) Acute kidney injury: (2) Hyponatremia: (3) Hypocalcemia: (4) Hypomagnesemia: (5) Hypokalemia: (6) Anemia: (7) Alcohol abuse: (8) HTN (hypertension): (9) Hypothyroid: (10) Folic acid deficiency: (11) Moderate protein-calorie malnutrition: (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 Hyponatremia, related to hypovolemia and also polydipsia and alcohol. Hypokalemia. Severe hypomagnesemia. Severe/near critical hypocalcemia. Anemia, likely multifactorial due to both folate deficiency, iron deficiency, but GI blood loss can not be ruled out. Severe longstanding alcohol abuse. Tobacco abuse. Hypothyroidism. folic acid deficiency Moderate protein calorie malnutrition with prealbumin low at 15.8. Stress cardiomyopathy with a type II (supply-demand mismatch) myocardial infarction in the setting of severe electrolyte abnormality. History of supraventricular tachycardia almost 10 years ago for which she had 2 ablations. Vasovagal syncope Atrial fibrillation, paroxysmal. Plan: The patient was given 1 L of IV fluids normal saline bolused and then has gottenanother liter at 150 mL an hour this evening. Now we will switch to the IV fluids with 3 A of sodium bicarbonate as ordered bynephrology earlier in the day. Hold on efforts to give any more IV Ferrlecit at this time. Check troponin and EKG in the morning. Consult cardiology. Close monitoring of any acute alcohol withdrawal although it seems less likely for the next 24 hours or so. Switch to Librium given the severe shortage of IV Ativan. Documented By: Hong Mcintosh DO 1920 Signed By: <Electronically signed by Hong Mcintosh DO> 12/06/211931 [facility] Work Phone: [phone]) 265-411008-29-2022 Consult note Author Rehan Russ [facility] December 06, 2021 5:46pm Note Date/Time December 06, 2021 5: 46pm [facility] [address] [place] [address] Gastroenterology Consult Note Signed Patient: Juanita Redman MR#: [id number] : 1965 Acct:[id number] Age/Sex: 56 / F Adm Date: 2 Loc: Room: [address] [place] [address] Type: ADM IN Attending Dr: Hong Mcintosh DO Copies to: DO Hong Rose DO Lawrence R Mccormack, MD~ HPI Data of Consult Date of Consultation: 12/06/21 Requesting Physician: Hong Mcintosh DO Consult Narrative History of present illness: Ms. Redman is a 56 year old female who is referred because of anemia and GI bleeding. History is well recorded. The patient was transferred to the [place] ER and admitted the day before yesterday with complaints of loss of consciousness. The patient smokes a pack of cigarettes a day and drinks 2/5 of alcohol a week. In the emergency room her hemoglobin is 9.7 and has stabilized. She has not had any blood in the stool or black tarry stools since admission. Patient states that she did have an EGD and colonoscopy several years ago in [place]. She was told that she had a gastric polyp and a colon polyp. She has not had this rechecked. Hemoglobin did drop to 7.7 but is now 8.7. Stool for occult blood is negative. Blood counts show macrocytic indices with normal ferritin. Review of systems includes hypertension, hypothyroidism, history of NH, history of SVT. cc:: CC: Hong Mcintosh DO Review of Systems Review of Systems All other systems reviewed & are negative unless noted below or in HPI PMFSH Vaccinated for COVID-19?: No Medical History (Updated 12/06/21 @ 17:44 by Rehan Russ MD) Alcohol abuse Anemia COPD (chronic obstructive pulmonary disease) GERD (gastroesophageal reflux disease) HTN (hypertension) Hypothyroid Myocardial infarction Noncompliance Pneumonia Seasonal allergies Smoker SVT (supraventricular tachycardia) Surgical History History of breast lump removal History of History of radiofrequency ablation (RFA) procedure for cardiac arrhythmia Family History Father Diabetes Lung cancer HTN (hypertension) Brother HTN (hypertension) Mother Heart disease HTN (hypertension) Grandparent Diabetes Family/Other Breast cancer Social History Smoking Status: Current every day smoker Tobacco Type: cigarettes Substance Use Type: Alcohol Meds Medications and Allergies Allergies cephalexin [From Keflex] Adverse Reaction (Verified 12/04/21 10:03) Nausea prednisone Adverse Reaction (Verified 12/04/21 10:03) Swelling Home Medications diphenhydramine HCl 25 mg capsule (Benadryl) 25 mg PO BID 12/04/21 [History Confirmed 12/04/21] levothyroxine 100 mcg tablet 100 mcg PO DAILY 12/04/21 [History Confirmed 12/04/21] lisinopril 20 mg tablet 20 mg PO DAILY 12/04/21 [History Confirmed 12/04/21] metoprolol succinate 100 mg tablet,extended release 24 hr 100 mg PO DAILY 12/04/21 [History Confirmed 12/04/21] omeprazole 20 mg capsule,delayed release 20 mg PO DAILY 12/04/21 [History Confirmed 12/04/21] Exam Physical Exam Vital Signs: Temp Pulse Resp BP Pulse Ox O2 Del Method 97.4 F L 89 16 154/93 H 100 Room Air 12/06/21 14:47 12/06/21 16:49 12/06/21 16:49 12/06/21 16:49 12/06/21 16:49 12/06/21 16:49 Narrative: Constitutional: Well-developed, well nourished, alert and oriented ?3, in no apparent distress. Head: Normocephalic. Eyes pupils equal and round, reactive to light and accommodation. No icterus or conjunctivitis. Ears: Normal appearance. Neck and nodes: negative Mouth, nose and throat: Normal appearance. Chest: Clear to auscultation and percussion. Heart: Regular rhythm without murmurs or gallops. No thrills or heaves. Abdomen: No distention or tympany. Normal bowel sounds. Liver and spleen normal to percussion and palpation. No masses or tenderness. No bruits heard Rectum: Grossly normal. Extremities: No palmar erythema. No Dupuytren's contractures. No edema noted. Neuro: Grossly negative. Skin: Normal Results Labs Labs: Laboratory Results - last 24 hr 12/06/21 12/06/21 12/06/21 07:38 07:38 07:38 Corrected WBC 6.4 Uncorrected WBC Count 6.4 RBC 2.52 L Hgb 8.7 L Hct 26.2 L MCV 103.8 H MCH 34.3 MCHC 33.1 RDW 16.6 H Plt Count 218 MPV 7.9 Neut % (Auto) 62.7 Lymph % (Auto) 19.7 Canyon % (Auto) 14.4 Eos % (Auto) 2.3 Baso % (Auto) 0.9 Neut # (Auto) 4.0 Lymph # (Auto) 1.3 Canyon # (Auto) 0.9 H Eos # (Auto) 0.1 Baso # (Auto) 0.1 Nucleated RBC % (auto) 0.3 PHA Creatinine Clear 35.09 Sodium 126 L Potassium 5.3 H Chloride 100 Carbon Dioxide 18.0 L Anion Gap 13.3 BUN 26 H Creatinine 1.78 H Est GFR ( Amer) 35 Est GFR (Non-Af Amer) 29 Glucose 89 POC Glucose Calcium 6.9 L Magnesium 1.9 Albumin 3.0 L Ethyl Alcohol % Ethyl Alcohol 12/06/21 12/06/21 08:21 13:19 Corrected WBC Uncorrected WBC Count RBC Hgb Hct MCV MCH MCHC RDW Plt Count MPV Neut % (Auto) Lymph % (Auto) Canyon % (Auto) Eos % (Auto) Baso % (Auto) Neut # (Auto) Lymph # (Auto) Canyon # (Auto) Eos # (Auto) Baso # (Auto) Nucleated RBC % (auto) PHA Creatinine Clear Sodium Potassium Chloride Carbon Dioxide Anion Gap BUN Creatinine Est GFR ( Amer) Est GFR (Non-Af Amer) Glucose POC Glucose 145 Calcium Magnesium Albumin Ethyl Alcohol < 5 % Ethyl Alcohol TNP A&P - Gastroenterology Assessment/Plan (1) Macrocytic anemia: Plan: Patient has macrocytic anemia associated with her alcohol use and borderline B12. There is no convincing evidence of iron deficiency and stools are Hemoccult negative currently. Patient does have a history of gastric and colon polyps. She should have EGD and colonoscopy done as an outpatient. Code(s): D53.9 - Nutritional anemia, unspecified Status: Acute Documented By: Rehan Russ MD 12/06/211740 Signed By: <Electronically signed by MD Rehan Russ> 12/06/211745 [facility] Work Phone: [phone] 248-902508-29-2022 Progress note Author William Esposito [facility] December 06, 2021 1:19pm Note Date/Time December 06, 2021 1: 19pm [facility] [address] [place] [address] Nephrology Progress Note Signed Patient: Juanita Redman MR#: [id number] : 1965 Acct:[id number] Age/Sex: 56 / F Adm Date: 2 Loc: Room: [address] [place] [address] Type: ADM IN Attending Dr: Hong Mcintosh DO Copies to: ~ Date of Service: 12/06/2021 Subjective Subjective Narrative: Mrs. Redman is a 56-year-old white female with history of COPD, smoker, alcohol abuse and hypothyroidism on levothyroxine who was transferred from [facility] on 12/04 for abnormal blood work showing creatinine elevated 2.77 with low sodium 124 and low potassium 3.2 with very low calcium 5.8. Patient presented with lightheadedness and she passed out with momentary loss of consciousness. Patient stated that it could be related to alcohol since she hasbeen having nausea, vomiting and diarrhea for 2 days before admission. Patient was given 2 L of IV fluid and 2 g of magnesium and 1 g of calcium before transfer to [facility]. Today's creatinine is slightly better 1.87 mg/dL however shecontinues to have low sodium 125 mmol/L hence nephrology was consulted. Patient is being seen and examined in her room. She is awake and she feels muchbetter. She is on IV fluid lactated Ringer with potassium chloride 20 mill equivalent per liter at 75 cc/h. Blood pressure did improve 138/68. On admission her hemoglobin was 9.7 however it dropped down to 7.7 g/dL today with IV hydration. She denies any active bleeding. She has elevated MCV and MCH with borderline B12 and folic acid that is currently being replaced. On admission, troponin was elevated more than 100 currently down to 20 pg/mL. She denies any chest pain. Iron stores was also borderline low with ferritin 80.8 and iron saturation 9%. Urine tox screen was positive for benzodiazepines. Urine analysis showed cloudy urine with specific gravity 1.013, 30 mg proteinuria, 4+ leukocytes trace and innumerable WBCs. Urine culture is pending. INTERVAL HISTORY Seen and examined at bedside. She is feeling better denies any chest pain palpitation cough nausea vomit diarrhea shortness of breath. She reported that she had a kidney problem for 2 years as she was informed by her PCP and was advised to see a kidney specialist but she opted against it. Her echocardiogramshowed normal EF and mild pulmonary hypertension. Exam Physical Exam Vital Signs: Temp Pulse Resp BP Pulse Ox O2 Del Method 98.2 F 63 18 174/82 H 100 Room Air 12/06/21 04:00 12/06/21 07:52 12/06/21 07:52 12/06/21 07:52 12/06/21 07:52 12/06/21 07:52 Narrative: General: Appears comfortable and not in distress Heart: S1-S2, no rub Lung: Bilateral air entry, no wheezing or crackles Abdomen: Soft, positive bowel sounds Extremities: No edema, no cyanosis Head: Atraumatic, normocephalic Ear: No gross hearing Deficit or external ear redness Eyes: No pallor or redness Neck: No JVD or visible mass Skin: No rashes or bruises DIRECTOR OF ELEMENTARY EDUCATION: Awake,Alert, following simple command Musculoskeletal: No joint swelling or limitation of movement Psychiatric: Cooperative, normal mood and affect abdominal hysterectomy Objective Intake and Output I&O: Intake & Output 12/03/21 12/04/21 12/05/21 12/06/21 23:59 23:59 23:59 23:59 Intake Total 1950.2 / 1950.2 3556.2 / 3556.2 0 / 0 Balance 1950.2 / 1950.2 3556.2 / 3556.2 0 / 0 Weight 76.4 kg 75 kg 75.8 kg Meds and Allergies Meds: Active Medications Acetaminophen (Acetaminophen 325 Mg Tablet) 650 mg PO Q6HR PRN PRN Reason: Pain Scale 1 - 3 or fever Stop: 12/04/22 10:15 Ascorbic Acid (Ascorbic Acid 500 Mg Tablet) 500 mg PO BID.WITH.BFAST.LUNCH [facility] Stop: 12/05/22 07:59 Last Admin: 12/06/21 11:12 Dose: Not Given Calcium Carbonate (Calcium Carbonate 500 Mg Tablet) 1,000 mg PO BID [facility] Stop: 12/06/22 09:29 Last Admin: 12/06/21 11:13 Dose: Not Given Magnesium Sulfate (Magnesium Sulf 2gm-*Swfi*) 2 gm in 50 mls @ 25 mls/hr IV DAILY PRN PRN Reason: Magnesium Level < 1.5 Stop: 12/04/22 10:15 Folic Acid 1 mg/ Dextrose 50.2 mls @ 100.4 mls/hr IV DAILY [facility] Stop: 12/04/22 13:59 Last Admin: 12/06/21 11:00 Dose: 100 mls/hr Thiamine HCl 200 mg/ Sodium (Chloride) 102 mls @ 204 mls/hr IV TID [facility] Stop: 12/04/22 21:59 Last Admin: 12/05/21 22:05 Dose: 204 mls/hr Levofloxacin (Levaquin) 750 mg in 150 mls @ 100 mls/hr IV Q48H [facility] Last Admin: 12/05/21 09:17 Dose: 100 mls/hr Ferric Sodium Gluconate Complex 250 mg/ Sodium Chloride 270 mls @ 135 mls/hr IVQAM [facility] Stop: 12/09/21 08:59 Last Admin: 12/06/21 11:01 Dose: 135 mls/hr Sodium Bicarbonate 150 meq/ (Dextrose) 1,150 mls @ 100 mls/hr IV .[id number] [facility] Stop: 12/06/21 20:59 Last Admin: 12/06/21 11:01 Dose: 100 mls/hr Levothyroxine Sodium (Levothyroxine 50 Mcg Tablet) 50 mcg PO DAILY.0630 [facility] Stop: 12/05/22 06:29 Last Admin: 12/06/21 05:30 Dose: Not Given Lorazepam (Lorazepam 1 Mg Tablet) 0 mg PO PROTOCOL PRN; Protocol PRN Reason: Alcohol Withdrawal Stop: 06/03/22 22:56 Last Admin: 12/05/21 23:26 Dose: 4 mg Lorazepam (Lorazepam 2 Mg/Ml Vial) 0 mg IM PROTOCOL PRN; Protocol PRN Reason: Alcohol Withdrawal Stop: 06/03/22 22:56 Metoprolol Succinate (Metoprolol Succinate 100 Mg Tab.Er.24h) 100 mg PO DAILY [facility] Stop: 12/04/22 17:43 Last Admin: 12/06/21 11:12 Dose: Not Given Nicotine (Nicotine Patch 21 Mg/24hr 1 Each Patch.Td24) 1 each TRANSDERML DAILY [facility] Stop: 12/06/22 08:59 Omeprazole (Omeprazole 20 Mg Capsule.Dr) 20 mg PO DAILY [facility] Stop: 12/05/22 08:59 Last Admin: 12/06/21 11:13 Dose: Not Given Potassium Chloride (Potassium Chloride Er 20 Meq Tab.Er.Prt) 20 meq PO DAILY PRN PRN Reason: Hypokalemia Stop: 12/04/22 10:15 Potassium Chloride (Potassium Chloride Er 20 Meq Tab.Er.Prt) 40 meq PO DAILY PRN PRN Reason: Hypokalemia Stop: 12/04/22 10:15 Sodium Chloride (Sodium Chloride 0.9 % 10 Ml Syringe) 0 ml IV-PUSH PRN PRN PRN Reason: Flush Stop: 12/04/22 10:15 Last Admin: 12/05/21 22:07 Dose: 10 ml Temazepam (Temazepam 15 Mg Capsule) 30 mg PO QPM PRN PRN Reason: Sleep Stop: 06/02/22 21:07 Last Admin: 12/05/21 22:05 Dose: 30 mg Allergies cephalexin [From Keflex] Adverse Reaction (Verified 12/04/21 10:03) Nausea prednisone Adverse Reaction (Verified 12/04/21 10:03) Swelling Results Labs CBC & Chem 7: 12/06/21 07:38 12/06/21 07:38 Labs: 12/06/21 12/06/21 07:38 07:38 BUN 26 H Creatinine 1.78 H Albumin 3.0 L Radiology Impressions Impressions - last 24 hours: Any impression(s) listed above is documentation that was entered by the reading physician into a diagnostic report(s) for Juanita Redman. I have reviewed the report(s) and am incorporating any findings in the treatment plan of this patient where applicable. A&P - Nephrology Assessment/Plan (1) Hyponatremia: Assessment/Problem Details: Patient has hyponatremia in the setting of volume depletion. She also has a history of alcohol abuse with low albumin and protein calorie malnutrition that may contribute to tubular dilution defect. She was admitted with sodium 124 mmol/L, no previous records for previous sodium so it is not clear if she has chronic hyponatremia. Patient has been alcoholic and she has COPD and there is a high possibility that she may have SIADH. (2) Hypomagnesemia: Assessment/Problem Details: Patient had hypocalcemia and hypomagnesemia on admission that was repleted. Hypomagnesemia possibly related to alcohol abuse and decreased oral intake (3) Hypokalemia: Assessment/Problem Details: Patient has hypokalemia and admission related to decreased oral intake and alcohol abuse that may contribute to hyponatremia. Potassium did improve with replacement (4) Anemia: Assessment/Problem Details: Patient had anemia on admission 9 g/dL with a drop down to 7.7 g/dL with IV hydration. It is not clear if the patient has a bleeding. She has macrocytic anemia with elevated MCV in the setting of low folic acid and borderline B12 thatis being repleted. Possibility of surgical varices or active bleeding cannot beexcluded. (5) Alcohol abuse: Assessment/Problem Details: Patient has long history of alcohol abuse, she stated that currently cut down to two fifth/week (6) Hypocalcemia: Assessment/Problem Details: Patient has severe hypocalcemia and hypomagnesemia possibly related to alcohol abuse with decreased oral intake. He could have vitamin D deficiency as well. Plan * Change IV fluid to isotonic bicarbonate drip at 100 mL/h. Stop oral sodium bicarbonate * Start calcium carbonate 1 g p.o. twice daily * She is a smoker we will do CT chest to rule out malignancy due to the hyponatremia * Continue ergocalciferol 50,000 weekly. * Continue holding lisinopril. Patient is back on metoprolol 100 mg daily. * Please follow stool occult blood test and consult GI if positive.. * Continue IV ferric gluconate 250 mg daily x4 doses * Monitor daily intake and output and renal panel. We will check magnesium and replete as needed. We will adjust IV fluid if indicated however seems to be close to euvolemic at this point * Continue empiric antibiotics and adjust as needed based on culture sensitivity. Documented By: William Esposito MD 12/06/211311 Signed By: <Electronically signed by William Esposito MD> 12/06/21 1319 [facility] Work Phone: [phone] 736-852808-28-2022 Progress note Author Hong Mcintosh [facility] December 05, 2021 5:23pm Note Date/Time December 05, 2021 5: 09pm [facility] [address] [place] [address] Hospitalist Progress Note Signed with Philippe Patient: Juanita Redman MR#: [id number] : 1965 Acct:[id number] Age/Sex: 56 / F Adm Date: 2 Loc: Room: [address] [place] [address] Type: ADM IN Attending Dr: Hong Mcintosh DO Copies to: ~ ADDENDUM1 Urinalysis is suggestive of urinary tract infection. Originally the urinalysis was obtained to evaluate for problems such as proteinuria, and a urine drug screen was requested to evaluate for problems suchas amphetamine or cocaine. She was positive for benzodiazepines but she got theRestoril last night to sleep so that explains that positivity. Sent the urinalysis is suggestive of urinary tract infection will treat with Levaquin IV. She lists allergies from Keflex which apparently caused nausea. Addendum Documented By: Hong Mcintosh DO 12/05/211722 Addendum Signed By: <Electronically signed by Hong Mcintosh DO> 12/05/211722 Date of Service: 12/05/2021 Subjective Subjective Narrative: Today the patient notes that she has beginning to feel a bit better. She does admit that she is passing a lot of urine. She is having some loose stools. Shewondered if that was from the IV magnesium. She denies any headaches. No lightheadedness or dizzy. No sore throat or cough. No chest pain or palpitations. Appetite is fair. She ate a turkey sandwich. She has a lot of tea and pop on her bedside table. I asked her to consume less empty calories. She has no abdominal pain. She says that she got a mild amount of sleep last night with my Restoril sleeping medication. Exam Physical Exam Vital Signs: Temp Pulse Resp BP Pulse Ox O2 Del Method 98 F 68 18 125/76 99 Room Air 12/05/21 15:30 12/05/21 15:30 12/05/21 15:30 12/05/21 15:30 12/05/21 15:30 12/05/21 15:30 Narrative: GEN: Awake, alert, oriented x 3. Looks less anxious and tremulous than yesterday Head: Normal Cephalic, Atraumatic. Lungs: Clear to auscultation bilaterally, no wheezing, no crackles. Heart: Regular rate and rhythm, no murmurs, rubs, or gallops. Abdomen: Soft, normal bowel sounds, no rigidity, guarding, or acute peritoneal signs. Extremities: No swelling or cords in the calves bilaterally, no edema in the ankles bilaterally. Objective Lab Results CBC & Chem 7: 12/05/21 07:29 12/05/21 07:29 Meds Allergies and Active Meds Allergies cephalexin [From Keflex] Adverse Reaction (Verified 12/04/21 10:03) Nausea prednisone Adverse Reaction (Verified 12/04/21 10:03) Swelling Active Meds: Active Medications Generic Name Dose Route Start Last Admin Trade Name Freq PRN Reason Stop Dose Admin Acetaminophen 650 mg 12/04/21 10:16 Acetaminophen 325 Mg Tablet PO 12/04/22 10:15 Q6HR PRN Pain Scale 1 - 3 or fever Ascorbic Acid 500 mg 12/05/21 08:00 12/05/21 11:55 Ascorbic Acid 500 Mg Tablet PO 12/05/22 07:59 500 mg BID.WITH.BFAST.LUNCH [facility] Administration Magnesium Sulfate 2 gm in 50 mls @ 25 mls/hr 12/04/21 10:16 Magnesium Sulf 2gm-*Swfi* IV 12/04/22 10:15 DAILY PRN Magnesium Level < 1.5 Potassium Chloride 20 meq/ 1,010 mls @ 75 mls/hr 12/04/21 14:15 12/05/21 01:34 Lactated Ringer's IV 12/04/22 14:14 75 mls/hr .[id number] [facility] Administration Folic Acid 1 mg/ Dextrose 50.2 mls @ 100.4 mls/hr 12/04/21 14:00 12/05/21 09:17 IV 12/04/22 13:59 100 mls/hr DAILY [facility] Administration Thiamine HCl 200 mg/ Sodium 102 mls @ 204 mls/hr 12/04/21 22:00 12/05/21 15:21 Chloride IV 12/04/22 21:59 204 mls/hr TID [facility] Administration Levofloxacin 750 mg in 150 mls @ 100 mls/hr 12/05/21 09:00 12/05/21 09:17 Levaquin IV 100 mls/hr Q48H [facility] Administration Ferric Sodium Gluconate 110 mls @ 110 mls/hr 12/05/21 15:15 12/05/21 15:21 Complex 125 mg/ Sodium IV 12/05/22 15:14 110 mls/hr Chloride QAM [facility] Administration Levothyroxine Sodium 50 mcg 12/05/21 06:30 12/05/21 06:55 Levothyroxine 50 Mcg Tablet PO 12/05/22 06:29 Not Given DAILY.0630 [facility] Metoprolol Succinate 100 mg 12/04/21 17:44 12/05/21 09:17 Metoprolol Succinate 100 Mg Tab.Er.24h PO 12/04/22 17:43 100 mg DAILY [facility] Administration Omeprazole 20 mg 12/05/21 09:00 12/05/21 09:17 Omeprazole 20 Mg Capsule.Dr PO 12/05/22 08:59 20 mg DAILY [facility] Administration Potassium Chloride 20 meq 12/04/21 10:16 Potassium Chloride Er 20 Meq Tab.Er.Prt PO 12/04/22 10:15 DAILY PRN Hypokalemia Potassium Chloride 40 meq 12/04/21 10:16 Potassium Chloride Er 20 Meq Tab.Er.Prt PO 12/04/22 10:15 DAILY PRN Hypokalemia Sodium Bicarbonate 1,300 mg 12/04/21 13:35 12/05/21 16:37 Sodium Bicarbonate 650 Mg Tablet PO 12/04/22 13:34 1,300 mg TID.WITH.MEALS [facility] Administration Sodium Chloride 0 ml 12/04/21 10:16 12/05/21 00:58 Sodium Chloride 0.9 % 10 Ml Syringe IV-PUSH 12/04/22 10:15 10 ml PRN PRN Administration Flush Temazepam 15 mg 12/04/21 21:08 12/04/21 21:49 Temazepam 15 Mg Capsule PO 06/02/22 21:07 15 mg QPM PRN Administration Sleep A&P - Hospitalist Assessment/Plan (1) Acute kidney injury: (2) Hyponatremia: (3) Hypocalcemia: (4) Hypomagnesemia: (5) Hypokalemia: (6) Anemia: (7) Alcohol abuse: (8) HTN (hypertension): (9) Hypothyroid: (10) Folic acid deficiency: (11) Moderate protein-calorie malnutrition: (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 Hyponatremia, related to hypovolemia and also polydipsia and alcohol. Hypokalemia. Severe hypomagnesemia. Severe/near critical hypocalcemia. Anemia, likely multifactorial due to both folate deficiency, iron deficiency, but GI blood loss can not be ruled out. Severe longstanding alcohol abuse. Tobacco abuse. Hypothyroidism. folic acid deficiency Moderate protein calorie malnutrition with prealbumin low at 15.8. Stress cardiomyopathy with a type II (supply-demand mismatch) myocardial infarction in the setting of severe electrolyte abnormality. History of supraventricular tachycardia almost 10 years ago for which she had 2 ablations. Plan: Continue IV fluids. Appreciate nephrology consultation. Intensify IV iron repletion while she is here to 250 mcg daily for 3 more doses. Consult gastroenterology keep n.p.o. after midnight for possible EGD in the morning. Add protein supplement with protein pudding and Beneprotein 3 times a day. May require free water restriction, if hyponatremia does not improve. Continue Restoril at nighttime and close monitoring for any acute alcohol withdrawal signs or symptoms. Documented By: Hong Mcintosh DO [id number] Signed By: <Electronically signed by Hong Mcintosh DO> 12/05/21 3132 [facility] Work Phone: [phone] 609-430508-28-2022 Consult note Author Nilesh Oakley [facility] December 05, 2021 2:55pm Note Date/Time December 05, 2021 2: 55pm [facility] [address] [place] [address] Nephrology Consult Note Signed Patient: Juanita Redman MR#: [id number] : 1965 Acct:[id number] Age/Sex: 56 / F Adm Date: 2 Loc: Room: [address] [place] [address] Type: ADM IN Attending Dr: Hong Mcintosh DO Copies to: DO Nilesh Rose MD Kristopher L Lindbloom, DO~ Providers Consult Date: 12/05/21 Requesting Provider: Hong Mcintosh DO Primary Care Provider: Segundo Rawls DO HPI Reason for Consult: Hyponatremia 125 mmol/L History of Present Illness: Mrs. Redman is a 56-year-old white female with history of COPD, smoker, alcohol abuse and hypothyroidism on levothyroxine who was transferred from [facility] on 12/04 for abnormal blood work showing creatinine elevated 2.77 with low sodium 124 and low potassium 3.2 with very low calcium 5.8. Patient presented with lightheadedness and she passed out with momentary loss of consciousness. Patient stated that it could be related to alcohol since she hasbeen having nausea, vomiting and diarrhea for 2 days before admission. Patient was given 2 L of IV fluid and 2 g of magnesium and 1 g of calcium before transfer to [facility]. Today's creatinine is slightly better 1.87 mg/dL howevershe continues to have low sodium 125 mmol/L hence nephrology was consulted. Patient is being seen and examined in her room. She is awake and she feels muchbetter. She is on IV fluid lactated Ringer with potassium chloride 20 mill equivalent per liter at 75 cc/h. Blood pressure did improve 138/68. On admission her hemoglobin was 9.7 however it dropped down to 7.7 g/dL today with IV hydration. She denies any active bleeding. She has elevated MCV and MCH with borderline B12 and folic acid that is currently being replaced. On admission, troponin was elevated more than 100 currently down to 20 pg/mL. She denies any chest pain. Iron stores was also borderline low with ferritin 80.8 and iron saturation 9%. Urine tox screen was positive for benzodiazepines. Urine analysis showed cloudy urine with specific gravity 1.013, 30 mg proteinuria, 4+ leukocytes trace and innumerable WBCs. Urine culture is pending. Home medications include lisinopril and metoprolol that are currently on hold for low blood pressure. She is also on levothyroxine. TSH was borderline low 0.39 however T4 was normal. Patient is currently feels comfortable. No more diarrhea, nausea or vomiting. She denies dizziness. Blood pressure up to 138/68 off lisinopril and metoprolol. Review of Systems Review of Systems All other systems reviewed & are negative unless noted below or in HPI Constitutional Constitutional: Reports system reviewed and no additional complaints, except as documented Cardiovascular Cardiovascular: Reports system reviewed and no additional complaints, except as documented Respiratory Respiratory: Reports system reviewed and no additional complaints, except as documented Gastrointestinal Gastrointestinal: Reports system reviewed and no additional complaints, except as documented Neurologic Neurologic: Reports system reviewed and no additional complaints, except as documented Hematologic/Lymphatic Hematologic/Lymphatic: Reports system reviewed and no additional complaints, except as documented PMFSH Vaccinated for COVID-19?: No Medical History (Updated 12/04/21 @ 21:04 by Hong Mcintosh DO) Alcohol abuse Anemia COPD (chronic obstructive pulmonary disease) GERD (gastroesophageal reflux disease) HTN (hypertension) Hypothyroid Myocardial infarction Noncompliance Pneumonia Seasonal allergies Smoker SVT (supraventricular tachycardia) Surgical History History of breast lump removal History of History of radiofrequency ablation (RFA) procedure for cardiac arrhythmia Family History Father Diabetes Lung cancer HTN (hypertension) Brother HTN (hypertension) Mother Heart disease HTN (hypertension) Grandparent Diabetes Family/Other Breast cancer Social History Smoking Status: Current every day smoker Tobacco Type: cigarettes Substance Use Type: Alcohol Meds Medications & Allergies Allergies cephalexin [From Keflex] Adverse Reaction (Verified 12/04/21 10:03) Nausea prednisone Adverse Reaction (Verified 12/04/21 10:03) Swelling Home Medications diphenhydramine HCl 25 mg capsule (Benadryl) 25 mg PO BID 12/04/21 [History Confirmed 12/04/21] levothyroxine 100 mcg tablet 100 mcg PO DAILY 12/04/21 [History Confirmed 12/04/21] lisinopril 20 mg tablet 20 mg PO DAILY 12/04/21 [History Confirmed 12/04/21] metoprolol succinate 100 mg tablet,extended release 24 hr 100 mg PO DAILY 12/04/21 [History Confirmed 12/04/21] omeprazole 20 mg capsule,delayed release 20 mg PO DAILY 12/04/21 [History Confirmed 12/04/21] Active Medications: Active Medications Acetaminophen (Acetaminophen 325 Mg Tablet) 650 mg PO Q6HR PRN PRN Reason: Pain Scale 1 - 3 or fever Stop: 12/04/22 10:15 Ascorbic Acid (Ascorbic Acid 500 Mg Tablet) 500 mg PO BID.WITH.BFAST.LUNCH [facility] Stop: 12/05/22 07:59 Last Admin: 12/05/21 11:55 Dose: 500 mg Magnesium Sulfate (Magnesium Sulf 2gm-*Swfi*) 2 gm in 50 mls @ 25 mls/hr IV DAILY PRN PRN Reason: Magnesium Level < 1.5 Stop: 12/04/22 10:15 Potassium Chloride 20 meq/ (Lactated Ringer's) 1,010 mls @ 75 mls/hr IV .[id number] [facility] Stop: 12/04/22 14:14 Last Admin: 12/05/21 01:34 Dose: 75 mls/hr Folic Acid 1 mg/ Dextrose 50.2 mls @ 100.4 mls/hr IV DAILY [facility] Stop: 12/04/22 13:59 Last Admin: 12/05/21 09:17 Dose: 100 mls/hr Thiamine HCl 200 mg/ Sodium (Chloride) 102 mls @ 204 mls/hr IV TID [facility] Stop: 12/04/22 21:59 Last Admin: 12/05/21 09:17 Dose: 204 mls/hr Levofloxacin (Levaquin) 750 mg in 150 mls @ 100 mls/hr IV Q48H [facility] Last Admin: 08/28/22 09:17 Dose: 100 mls/hr Levothyroxine Sodium (Levothyroxine 50 Mcg Tablet) 50 mcg PO DAILY.0630 [facility] Stop: 12/05/22 06:29 Last Admin: 12/05/21 06:55 Dose: Not Given Metoprolol Succinate (Metoprolol Succinate 100 Mg Tab.Er.24h) 100 mg PO DAILY CINTIA Stop: 12/04/22 17:43 Last Admin: 12/05/21 09:17 Dose: 100 mg Omeprazole (Omeprazole 20 Mg Capsule.Dr) 20 mg PO DAILY CINTIA Stop: 12/05/22 08:59 Last Admin: 12/05/21 09:17 Dose: 20 mg Potassium Chloride (Potassium Chloride Er 20 Meq Tab.Er.Prt) 20 meq PO DAILY PRN PRN Reason: Hypokalemia Stop: 12/04/22 10:15 Potassium Chloride (Potassium Chloride Er 20 Meq Tab.Er.Prt) 40 meq PO DAILY PRN PRN Reason: Hypokalemia Stop: 12/04/22 10:15 Sodium Bicarbonate (Sodium Bicarbonate 650 Mg Tablet) 1,300 mg PO TID.WITH.MEALS [facility] Stop: 12/04/22 13:34 Last Admin: 12/05/21 11:55 Dose: 1,300 mg Sodium Chloride (Sodium Chloride 0.9 % 10 Ml Syringe) 0 ml IV-PUSH PRN PRN PRN Reason: Flush Stop: 12/04/22 10:15 Last Admin: 12/05/21 00:58 Dose: 10 ml Temazepam (Temazepam 15 Mg Capsule) 15 mg PO QPM PRN PRN Reason: Sleep Stop: 06/02/22 21:07 Last Admin: 12/04/21 21:49 Dose: 15 mg Exam Physical Exam Vital Signs: Temp Pulse Resp BP Pulse Ox O2 Del Method 36.6 C 70 18 138/68 100 Room Air 12/05/21 11:54 12/05/21 11:54 12/05/21 11:54 12/05/21 11:54 12/05/21 11:54 12/05/21 11:54 Results Labs CBC & Chem 7: 12/05/21 07:29 12/05/21 07:29 Labs: 12/05/21 12/05/21 07:00 07:29 BUN 26 H Creatinine 1.87 H Ferritin 80.8 25-OH Vitamin D Total 21.8 L Urine Color Yellow Urine Appearance Cloudy A Urine pH 5.5 Ur Specific [place] 1.013 Urine Protein 30 H Urine Glucose (UA) Normal Urine Ketones Negative Urine Occult Blood Negative Urine Nitrite Negative Ur Leukocyte Esterase 4+ H Urine RBC 1-2 Urine WBC Innumerable H Urine Bacteria 4+ H Radiology Impressions Impressions - last 24 hours: Any impression(s) listed above is documentation that was entered by the reading physician into a diagnostic report(s) for uJanita Redman. I have reviewed the report(s) and am incorporating any findings in the treatment plan of this patient where applicable. ECG Data Attestation: I reviewed this ECG and interpreted as documented below: ECG Narrative: Normal sinus rhythm with nonspecific ST-T wave abnormalities. Additional Results Results Comment: 2D echo showed normal ejection fraction with RVSP 48 mmHg A&P - Nephrology Assessment/Plan (1) Hyponatremia: Assessment/Problem Details: Patient has hyponatremia in the setting of volume depletion. She also has a history of alcohol abuse with low albumin and protein calorie malnutrition that may contribute to tubular dilution defect. She was admitted with sodium 124 mmol/L, no previous records for previous sodium so it is not clear if she has chronic hyponatremia. Patient has been alcoholic and she has COPD and there is a high possibility that she may have SIADH. (2) Hypomagnesemia: Assessment/Problem Details: Patient had hypocalcemia and hypomagnesemia on admission that was repleted. Hypomagnesemia possibly related to alcohol abuse and decreased oral intake (3) Hypokalemia: Assessment/Problem Details: Patient has hypokalemia and admission related to decreased oral intake and alcohol abuse that may contribute to hyponatremia. Potassium did improve with replacement (4) Anemia: Assessment/Problem Details: Patient had anemia on admission 9 g/dL with a drop down to 7.7 g/dL with IV hydration. It is not clear if the patient has a bleeding. She has macrocytic anemia with elevated MCV in the setting of low folic acid and borderline B12 that is being repleted. Possibility of surgical varices or active bleeding cannot be excluded. (5) Alcohol abuse: Assessment/Problem Details: Patient has long history of alcohol abuse, she stated that currently cut down to two fifth/week (6) Hypocalcemia: Assessment/Problem Details: Patient has severe hypocalcemia and hypomagnesemia possibly related to alcohol abuse with decreased oral intake. He could have vitamin D deficiency as well. Plan * Patient still has elevated serum creatinine although it is improving and possibly she continued to have volume depletion. Continue lactated Ringer at current rate 75 cc/h, blood pressure has improved and she is able to eat and drink. * Patient has evidence of low vitamin D deficiency 21 on admission, agree with ergocalciferol 50,000 weekly. * Continue holding lisinopril. Patient is back on metoprolol 100 mg daily. * Patient has evidence of iron deficiency with severe anemia. Will check stool for occult blood and will need endoscopy if it is positive since she is alcoholic. * Will replete iron with IV sodium ferric gluconate 250 mg daily x4 doses per * Monitor daily intake and output and renal panel. We will check magnesium and replete as needed. We will adjust IV fluid if indicated however seems to be close to euvolemic at this point * Urine analysis on admission showed bacteriuria. Urine culture still pending. Patient empirically on Levaquin 750 mg daily. * Treatment of alcohol withdrawal and abuse. Dr. Mcintosh. Patient on IV thiamine. Appreciate this consultation we will be happy to follow the patient with you during your hospital stay This document was dictated utilizing computerized voice recognition technology. Errors in grammar, spelling, and or syntax may be noted. The creator of this document does not proofread for this. Documented By: Nilesh Oakley MD 12/05/21 1435 Signed By: <Electronically signed by MD Nilesh Oakley> 12/05/21 9889 [facility] Work Phone: [phone] History and physical note Author Hong Mcintosh [facility] December 04, 2021 9:07pm Note Date/Time December 04, 2021 9: 07pm [facility] [address] [place] [address] Hospitalist H&P Signed Patient: Juanita Redman MR#: [id number] : 1965 Acct:[id number] Age/Sex: 56 / F Adm Date: 2 Loc: Room: [address] [place] [address] Type: ADM IN Attending Dr: Hong Mcintosh DO Copies to: DO Hong Rose Myrnaairam, DO~ HPI DATE OF EXAMINATION: 12/04/21 CHIEF COMPLAINT: weakness, passing out, lightheadedness. HISTORY OF PRESENT ILLNESS: This is a 56-year-old woman who presented to the [place] emergency room yesterday evening with complaints of lightheadedness and that she had passed outlost consciousness. She admitted to them that it may have been related to alcohol use and she had been having nausea and vomiting and diarrhea for a day or 2. They found that her hemoglobin was low but typical for her at 9.7, sodium was low at 124, potassium was low 3.2, bicarb was low at 19, BUN was elevated at 28,serum creatinine was elevated at 2.77, and calcium was very low at 5.8. Her high sensitivity troponin was 102 which was higher than their limit to keep her at that facility which they told me was 51. Her arrival at this hospital was delayed because we have such a high census and there were no beds available for her. She describes that they gave her 2 bags of IV fluids. She also seems of gotten 2 g of magnesium and some treatment of IV calcium. She states that she was in her usual state of health until she had severe intractable nausea vomiting and diarrhea. She says I think was alcohol poisoning. She does admit that he might of been some type of foodborne illnessbut nobody else in her family has come down with anything. The vomiting and diarrhea are gone at this time. But after that episode she could tell that she was dehydrated. She says that she thought that she was very dehydrated. She felt very lightheaded and then actually passed out and lost consciousness. She says that she has some degree of chronic kidney disease. She is a suboptimal historian. She says that her primary care doctor told her that she had 30% kidney function and she was supposed to come get established with a lead designer in [place]. She also was supposed to see a box blank machine operator helper because she has probably rheumatoid arthritis and she has had a rash on her back for many decades. She has a fullness in the supraclavicular regions on both right and the left side. She says that the [facility] told her that these were lipomas based on a CT scan. They have been present this way for many years and are not really changing. She does currently smoke 0.5 to 1 pack/day. At her maximum she she smoked 3 packs/day. She rolls her own cigarettes and she says that she is trying to cut down. She started smoking at the age of 17. I gave her [id number] history. In terms of alcohol use she says that she drinks two fifths which last for about a week. In the past she used to drink 1 gallon bottles of alcohol whichwould only last her about half a week. She does indicate that she feels a lot better. She says that she wants to get out of the hospital soon. She does not like being confined. I advised her thatwe do not allow patients to leave the hospital or even the grounds to go smoking. Since arriving the hospital she has eaten lunch and dinner. She has been drinking copious fluids and is on her third jug of noncaffeinated tea. Review of Systems Review of Systems Review of systems: 10 systems are reviewed and are negative except as mentioned elsewhere in the documentation. [facility] Vaccinated for COVID-19?: No Medical History (Updated 12/04/21 @ 21:04 by Hong Mcintosh DO) Alcohol abuse Anemia COPD (chronic obstructive pulmonary disease) GERD (gastroesophageal reflux disease) HTN (hypertension) Hypothyroid Myocardial infarction Noncompliance Pneumonia Seasonal allergies Smoker SVT (supraventricular tachycardia) Surgical History History of breast lump removal History of History of radiofrequency ablation (RFA) procedure for cardiac arrhythmia Family History Father Diabetes Lung cancer HTN (hypertension) Brother HTN (hypertension) Mother Heart disease HTN (hypertension) Grandparent Diabetes Family/Other Breast cancer Social History Smoking Status: Current every day smoker Tobacco Type: cigarettes Substance Use Type: Alcohol Meds Medications and Allergies Allergies cephalexin [From Keflex] Adverse Reaction (Verified 12/04/21 10:03) Nausea prednisone Adverse Reaction (Verified 12/04/21 10:03) Swelling Home Medications diphenhydramine HCl 25 mg capsule (Benadryl) 25 mg PO BID 12/04/21 [History Confirmed 12/04/21] levothyroxine 100 mcg tablet 100 mcg PO DAILY 12/04/21 [History Confirmed 12/04/21] lisinopril 20 mg tablet 20 mg PO DAILY 12/04/21 [History Confirmed 12/04/21] metoprolol succinate 100 mg tablet,extended release 24 hr 100 mg PO DAILY 12/04/21 [History Confirmed 12/04/21] omeprazole 20 mg capsule,delayed release 20 mg PO DAILY 12/04/21 [History Confirmed 12/04/21] Exam Physical Exam Vital Signs: Temp Pulse Resp BP Pulse Ox O2 Del Method 97.3 F L 75 18 138/77 94 L Room Air 12/04/21 19:52 12/04/21 19:52 12/04/21 19:52 12/04/21 19:52 12/04/21 19:52 12/04/21 19:52 Narrative: GEN: Awake, alert, oriented x 3. Does look moderately anxious. Head: Normal Cephalic, Atraumatic. Eyes: Conjunctiva and sclera clear bilaterally. Nose: External nose and nares normal bilaterally. Mouth: Lips and tongue normal. Neck: No JVD. No thyromegaly. No lymphadenopathy. She has a very soft fullness that is equal bilaterally in the supraclavicular region. I do agree that it does not feel like lymphatic tissue or lymph nodes. This is just very soft. Lungs: Clear to auscultation bilaterally, no wheezing, no crackles. Heart: Regular rate and rhythm, no murmurs, rubs, or gallops. Abdomen: Soft, normal bowel sounds, no rigidity, guarding, or acute peritoneal signs. Extremities: No swelling or cords in the calves bilaterally, no edema in the ankles bilaterally. Skin: She has a dry red blotchy rash on her back which looks like little tiny scabs of a variety of different ages. Psychiatric: Moderately anxious but calm. Cooperative. Pleasant Neuro: Awake, Alert, and Oriented x 3. No focal or lateralizing deficits. Results Lab Results Labs: Laboratory Last Values Corrected WBC 6.3 X10E3/uL (3.8-11.6) 12/04/21 11:47 Uncorrected WBC Count 6.3 x10E3/uL (4.5-11.0) 12/04/21 11:47 RBC 2.58 x10E6/uL (3.60-5.00) L 12/04/21 11:47 Hgb 8.8 g/dL (11.8-15.4) L 12/04/21 11:47 Hct 26.2 % (34.0-46.4) L 12/04/21 11:47 MCV 101.7 fl (80-100) H 12/04/21 11:47 MCH 34.3 pg (24.7-34.3) 12/04/21 11:47 MCHC 33.7 g/dL (32.0-35.0) 12/04/21 11:47 RDW 16.3 % (11.9-15.3) H 12/04/21 11:47 Plt Count 184 x10E3/uL (150-450) 12/04/21 11:47 MPV 7.0 fl (6.3-10.7) 12/04/21 11:47 Neut % (Auto) 71.5 % (.) 12/04/21 11:47 Lymph % (Auto) 13.0 % (.) 12/04/21 11:47 [place] % (Auto) 13.9 % (.) 12/04/21 11:47 Eos % (Auto) 1.2 % (.) 12/04/21 11:47 Baso % (Auto) 0.4 % (.) 12/04/21 11:47 Neut # (Auto) 4.5 x10E3/uL (1.8-7.7) 12/04/21 11:47 Lymph # (Auto) 0.8 x10E3/uL (1.00-4.8) L 12/04/21 11:47 [place] # (Auto) 0.9 x10E3/uL (0.0-0.8) H 12/04/21 11:47 Eos # (Auto) 0.1 x10E3/uL (0.0-0.45) 12/04/21 11:47 Baso # (Auto) 0.0 x10E3/uL (0.0-0.2) 12/04/21 11:47 Nucleated RBC % (auto) 0.1 % (0-0.5) 12/04/21 11:47 PT 12.2 Seconds (9.0-12.9) 12/04/21 11:47 INR 1.1 12/04/21 11:47 APTT 29.9 Seconds (25.1-36.5) 12/04/21 11:47 PHA Creatinine Clear 27.74 12/04/21 11:47 Sodium 126 mmol/L (136-146) L 12/04/21 11:47 Potassium 3.4 mmol/L (3.5-5.1) L 12/04/21 11:47 Chloride 95 mmol/L (95-114) 12/04/21 11:47 Carbon Dioxide 16.6 mmol/L (22.0-30.0) L 12/04/21 11:47 BUN 27 mg/dL (9-23) H 12/04/21 11:47 Creatinine 2.26 mg/dL (0.44-1.03) H 12/04/21 11:47 Est GFR ( Amer) 27 mL/Min 12/04/21 11:47 Est GFR (Non-Af Amer) 22 mL/Min 12/04/21 11:47 Glucose 90 mg/dL (70-100) 12/04/21 11:47 Estimat Average Glucose 97 mg/dL 12/04/21 11:49 Hemoglobin A1c 5.0 % (4.3-5.6) 12/04/21 11:49 Lactic Acid 1.3 mmol/L (0.5-2.2) 12/04/21 11:47 Calcium 6.2 mg/dL (8.2-10.2) L* 12/04/21 11:47 Phosphorus 3.6 mg/dL (2.5-4.6) 12/04/21 11:47 Magnesium 0.9 mg/dL (1.6-2.6) L* 12/04/21 11:47 Total Bilirubin 0.8 mg/dL (0.3-1.2) 12/04/21 11:47 Direct Bilirubin 0.2 mg/dL (0.0-0.4) 12/04/21 11:47 Indirect Bilirubin 0.6 mg/dL 12/04/21 11:47 AST 15 U/L (10-42) 12/04/21 11:47 ALT 8 U/L (10-60) L 12/04/21 11:47 Alkaline Phosphatase 51 U/L (32-92) 12/04/21 11:47 Total Creatine Kinase 140 U/L (22-269) 12/04/21 11:47 CK-MB (CK-2) 2.0 ng/mL (0.6-6.3) 12/04/21 11:47 CK-MB (CK-2) Rel Index 1.4 % (0.00-2.50) 12/04/21 11:47 Troponin I High Sens 46 pg/mL (0-15) H 12/04/21 13:27 Total Protein 6.2 gm/dL (6.1-7.9) 12/04/21 11:47 Albumin 3.0 gm/dL (3.2-5.5) L 12/04/21 11:47 Globulin 3.2 gm/dL 12/04/21 11:47 Albumin/Globulin Ratio 0.9 12/04/21 11:47 Prealbumin 15.8 mg/dL (18.0-38.0) L 12/04/21 11:46 Vitamin B12 520 pg/mL (180-914) 12/04/21 11:46 Folate 5.1 ng/mL (>5.9) L 12/04/21 11:46 TSH 3rd Generation 0.39 uIU/mL (0.45-5.33) L 12/04/21 11:47 A&P - Hospitalist Assessment/Plan (1) Acute kidney injury: (2) Hyponatremia: (3) Hypocalcemia: (4) Hypomagnesemia: (5) Hypokalemia: (6) Anemia: (7) Alcohol abuse: (8) HTN (hypertension): (9) Hypothyroid: (10) Folic acid deficiency: (11) Moderate protein-calorie malnutrition: Plan Assessment: Acute kidney injury, in the setting of: Intractable nausea vomiting and diarrhea, with: Chronic kidney disease at baseline. Hyponatremia, related to hypovolemia and also polydipsia and alcohol. Hypokalemia. Severe hypomagnesemia. Severe/near critical hypocalcemia. Anemia, likely multifactorial. Severe longstanding alcohol abuse. Tobacco abuse. Hypothyroidism. Finding of folic acid deficiency, with folate low at 5.1. Moderate protein calorie malnutrition with prealbumin low at 15.8. Troponins were elevated at about 100 at the outside facility and then declined there and have declined to 53 and then 46 here. Most likely stress cardiomyopathy with a type II supply demand mismatch in the setting of severe electrolyte abnormality. History of supraventricular tachycardia almost 10 years ago for which she had 2 ablations. Plan: Replace magnesium intravenously at first. Replace folic acid intravenously. Thiamine level obtained. We will treat thiamine IV while that lab work is pending. Consult to nephrology. Supplement potassium. May need to limit free water if sodium does not improve. Consult to dietitian. Needs close monitoring for development of acute alcohol withdrawal delirium. Documented By: Hong Mcintosh DO 2031 Signed By: <Electronically signed by Hong Mcintosh, DO> 12/04/212106 [facility] Work Phone: Evaluation note* Diagnosis Onset Date Resolution Status Acute kidney injury acute Alcohol abuse acute Anemia acute Atrial fibrillation acute Folic acid deficiency acute HTN (hypertension) acute Hydronephrosis acute Hypocalcemia acute Hypokalemia acute Hypomagnesemia acute Hyponatremia acute Hypothyroid acute Iron deficiency acute Macrocytic anemia acute Moderate protein-calorie malnutrition acute Paroxysmal atrial fibrillation with RVR acute Stress-induced cardiomyopathy acute Type 2 myocardial infarction acute Urethral stenosis acute Vasovagal syncope acute [facility] Work Phone: Evaluation noteNo assessment information available [facility] Work Phone: Evaluation note* Diagnosis Onset Date Resolution Status GERD (gastroesophageal reflux disease) acute Hypertension acute Hypomagnesemia acute Hypothyroid acute Lupus acute Paroxysmal atrial fibrillation with RVR acute Rheumatoid arthritis acute Stress-induced cardiomyopathy acute Type 2 myocardial infarction acute [facility] Work Phone: Evaluation note* Diagnosis Onset Date Resolution Status Alcohol abuse acute GERD (gastroesophageal reflux disease) acute Hypertension acute Hypomagnesemia acute Hypothyroid acute Lupus acute Paroxysmal atrial fibrillation with RVR acute Rheumatoid arthritis acute Stress-induced cardiomyopathy acute Type 2 myocardial infarction acute Alcohol abuse acute Breast enlargement acute Breast skin changes acute GERD (gastroesophageal reflux disease) acute Hypertension acute Hypomagnesemia acute Hypothyroid acute Lupus acute Paroxysmal atrial fibrillation with RVR acute Rheumatoid arthritis acute Stress-induced cardiomyopathy acute Type 2 myocardial infarction acute [facility] Work Phone: History general Narrative - Reported* Type Description Date Medical History COPD Medical History HYPOTHYROIDISM Medical History ALCOHOL ABUSE Medical History SMOKER Medical History ANEMIA Medical History HYPOMAGNESEMIA Medical History HYPOCALCEMIA Medical History HYDRONEPHROSIS Surgical History X 2 Surgical History D&C X2 Surgical History LUMPECTOMY ON BOTH BREAST Surgical History 2 HEART ABLASIONS Hospitalization History SEE ABOVE Hospitalization History DEHYDRATION 12/2021 [facility] Other Hospital Discharge instructions Additional Instructions Dietary recommendations: - Magic cup (or equivalent) twice daily with [facility] [place] Work Phone: Hospital Discharge instructions Additional Instructions Follow-up with your primary care doctor Return to ED if develop worsening symptoms or concerns [facility] your medications [facility] [place] Work [facility]: Hospital Discharge instructionsAmbulatory Orders* Referral to Cardiology Location: None Selected * Referral to Rheumatology Location: None Selected [facility] Work Phone: Hospital Discharge instructionsAmbulatory Orders* Referral to Cardiology Location: None Selected [facility] Work Phone: Summary Purpose Family History Relationship Condition Age at Onset Recorded Date/T sudhir father Diabetes mellitus Unknown Malignant neoplasm of lung Unknown Hypertension Unknown brother Hypertension Unknown Not Specified Heart disease Unknown grandparent Diabetes mellitus Unknown family member Malignant neoplasm of breast Unknown Relationship Condition Age at Onset Recorded Date/T sudhir father Diabetes mellitus Unknown Malignant neoplasm of lung Unknown Hypertension Unknown brother Hypertension Unknown Not Specified Heart disease Unknown grandparent Diabetes mellitus Unknown family member Malignant neoplasm of breast Unknown brother Malignant neoplasm Unknown father Unknown Malignant neoplasm Unknown family member Unknown Not Specified Hypertension Unknown History of stroke Unknown Relationship Condition Age at Onset Recorded Date/T sudhir father Diabetes mellitus Unknown Malignant neoplasm of lung Unknown Hypertension Unknown brother Hypertension Unknown mother Heart disease Unknown grandparent Diabetes mellitus Unknown family member Malignant neoplasm of breast Unknown brother Malignant neoplasm Unknown father Unknown Malignant neoplasm Unknown family member Unknown mother Hypertension Unknown History of stroke Unknown Advance Directives Advance Directive Response Recorded Date/ Time Advance Directives No December 03, 2021 7:41pm Advance Directive Response Recorded Date/ Time Advance Directives No December 03, 2021 6:41pm Advance Directive Response Recorded Date/ Time Advance Directives No September 27 3:28pm Chief Complaint and Reason for Visit Chief Complaint Acute kidney injury Reason for Visit Acute kidney injury Alcohol abuse Anemia Atrial fibrillation Folic acid deficiency HTN (hypertension) Hydronephrosis Hypocalcemia Hypokalemia Hypomagnesemia Hyponatremia Hypothyroid Iron deficiency Macrocytic anemia Moderate protein-calorie malnutrition Paroxysmal atrial fibrillation with RVR Stress-induced cardiomyopathy Type 2 myocardial infarction Urethral stenosis Vasovagal syncope Chief Complaint High BP Chief Complaint Establish Reason for Visit GERD (gastroesophage al reflux disease) Hypertension Hypomagnesemia Hypothyroid Lupus Paroxysmal atrial fibrillation with RVR Rheumatoid arthritis Stress-induced cardiomyopathy Type 2 myocardial infarction Chief Complaint Establish 3 month f/u Reason for Visit Alcohol abuse GERD (gastroesophageal reflux disease) Hypertension Hypomagnesemia Hypothyroid Lupus Paroxysmal atrial fibrillation with RVR Rheumatoid arthritis Stress-induced cardiomyopathy Type 2 myocardial infarction Alcohol abuse Breast enlargement Breast skin changes GERD (gastroesophageal reflux disease) Hypertension Hypomagnesemia Hypothyroid Lupus Paroxysmal atrial fibrillation with RVR Rheumatoid arthritis Stress-induced cardiomyopathy Type 2 myocardial infarction Additional Source Comments INFORMATION SOURCE (unrecogn ized section and content) DATE CREATED AUTHOR 09/29/2017 [facility] DATE CREATED AUTHOR AUTHOR'S ORGANIZ ATION 01/07/[address] [facility] DATE CREATED AUTHOR AUTHOR'S ORGANIZ ATION 02/02/2022 [facility] DATE CREATED AUTHOR AUTHOR'S ORGANIZ ATION 05/14/2022 [facility] Care Teams (unrecognized sec tion and content) Team Status: Inactive Member Role Status Dates Segundo Rawls DO Primary Care Provider Active Hong Mcintosh , Admit Provider, Attending Pr ovider Active Rehan Russ MD Other Provider Active Nilesh Oakley MD Other Provider Active Shawnee Persaud RN Other Provider Active Gillian Romano DO Other Provider Active Kylah Kingsley MD Other Provider Active Sher Frazier MD Other Provider Active [place] Cardoso MD Other Provider Active Segundo Main MD Other Provider Active Karena Austin APRN Other Provider Active Estefania Martinez MD Other Provider Active Abbey Bach MD Other Provider Active Naila Kolb MD Other Provider Active Luis Sams MD Other Provider Active Lowell Trejo MD Other Provider Active Benedicto Santamaria MD Other Provider Active Lul Austin Jr, MD Other Provider Active Jagruti Ugalde MD Other Provider Active Brad Gan MD Other Provider Active Team Status: Active Member Role Status Dates Segundo Rawls , Primary Care Provider Active Team Status: Inactive Member Role Status Dates Segundo Rawls , Primary Care Provider Active Caden Jarrell DO Emergency Provider Active Team Status: Active Member Role Status Dates Katie Velasquez APRN [employer] READING TEACHER-C Primary Care Provider Active Team Status: Inactive Member Role Status Dates Katie Velasquez APRN [employer] READING TEACHER-C Primary Care Provider, Attending Provider Active Start: September 28, 2023 End: September 28, 2023 Team Status: Inactive Member Role Status Dates Katie Velasquez APRN [employer] READING TEACHER-C Primary Care Provider, Attending Provider Active Start: December 27, 2023 End: December 27, 2023 Goals (unrecognized section and content) Goals may be documented in a n alternate sectionNo InformationGoals may be documented in an alternate sectionGoals may be documented in an alternate section REASON FOR VISIT (unrecogniz ed section and content) CKD and HTN FOR RECORDS PERTAINING TO PATIENTS WHO ARE OR HAVE BEEN ENROLLED IN A CHEMICAL DEPENDENCY/SUBSTANCEABUSE PROGRAM, SOME INFORMATION MAY BE OMITTED. This clinical summary was aggregated from multiple sources. Caution should be exercised in using it in the provision of clinical care. This summary normalizes information from multiple sources, and as a consequence, information in this document may materially change the coding, format and clinical context of patient data. In addition, data may be omitted in some cases. CLINICAL DECISIONS SHOULD BE BASED ON THE PRIMARY CLINICAL RECORDS. [facility] [employer] [facility]. provides no warranty or guarantee of the accuracy or completeness of information in this document.
[2024-01-12 16:03] LABS: Basophils Absolute Auto 0.1 10^3/uL (0.0-0.1); Basophils Percent Auto 0.9 % (0.2-2.0); Eosinophils Absolute Auto 0.1 10^3/uL (0.0-0.7); Hematocrit 24.1 % (36.0-48.0); Hemoglobin 7.9 g/dL (12.0-16.0); Immature Granulocytes Abs Auto 0.06 10^3/uL (0.00-0.03); Immature Granulocytes Pct Auto 0.7 % (0.0-0.5); Lymphocytes Absolute Auto 1.2 10^3/uL (1.2-3.8); Lymphocytes Percent Auto 13.4 % (20.5-60.0); Mean Corpuscular HGB Conc 32.8 g/dL (29.9-35.2); Mean Corpuscular Hemoglobin 34.1 pg (26.7-34.0); Mean Corpuscular Volume 103.9 fL (81.0-99.0); Mean Platelet Volume 9.1 fL (9.5-13.5); Monocytes Absolute Auto 0.8 10^3/uL (0.3-0.8); Monocytes Percent Auto 8.6 % (1.7-12.0); Neutrophils Percent Auto 75.4 % (43.0-75.0); Platelet Count 279 10^3/uL (150-450); Red Blood Count 2.32 10^6/uL (4.20-5.40); Red Cell Distribution Width 14.3 % (11.0-15.0); White Blood Count 9.2 10^3/uL (4.0-11.0)
[2024-01-12 16:37] LABS: Alanine Aminotransferase 10 U/L (14-59); Albumin Globulin Ratio 0.6; Albumin Level 2.7 g/dL (3.4-5.0); Alkaline Phosphatase 98 U/L (46-116); Anion Gap 16.4; Aspartate Amino Transferase 24 U/L (15-37); BUN Creatinine Ratio 7.7; Bilirubin Total 1.1 mg/dL (0.2-1.0); Calcium 7.6 mg/dL (8.5-10.1); Carbon Dioxide 19.5 mmol/L (21.0-32.0); Chloride 98 mmol/L (98-107); Estimated GFR (African America 26 (>=60 mL/min/1.73m^2); Estimated GFR (Non-African Ame 21 (>=60 mL/min/1.73m^2); Globulin 4.3 g/dL; Glucose 91 mg/dL (74-106); Potassium 3.9 mmol/L (3.5-5.1); Sodium 130 mmol/L (136-145); TSH W/ REFLEX FT4 6.422 uIU/mL (0.358-3.740)
[2024-01-12 17:08] LABS: Free T4 1.22 ng/dL (0.76-1.46)
== END 2024-01-12 14:00 | disposition home or self-care (01) ==
LOC: MAMMO 13:59
PROVIDERS: PCP Family Medicine; Visit Provider Nurse Practitioner Family
DX: R23.4 Changes in skin texture (principal); I10 Essential (primary) hypertension; I48.0 Paroxysmal atrial fibrillation; E03.9 Hypothyroidism, unspecified; Z80.1 Family history of malignant neoplasm of trachea, bronchus and lung; N63.22 Unspecified lump in the left breast, upper inner quadrant
CPT/HCPCS: 36415; 76641; 77066; 80053; 84439; 84443; 85025; G0279

== ENCOUNTER 2024-02-19 13:49 | Day surgery (SDC) | payer OTHER, SELFPAY ==
--- NOTE | 2024-02-19 13:55 | US_ITS ---
[address] [address] Patient Name: ORESTES ALVARES MRN: [id number] date: 1965 Sex: F Assigned Patient Location: Current Patient Location: US Accession/Order Number: [id number] Exam Date: 02/19/2024 14:45 Report Date: 02/19/2024 16:05 At the request of: TAMMY WANG Procedure: US breast vac bx w/ clip LT EXAMINATION: US breast vac bx w/ clip LT HISTORY: Left Breast Spiculated Mass COMPARISON: No relevant comparison available. TECHNIQUE: After obtaining informed consent, ultrasound-guided fine needle aspiration was performed in the usual sterile manner. FINDINGS: IMAGING: Ultrasound. BIOPSY NEEDLE: 13-gauge mammotome LOCATION: 1.7 cm angular mass left breast SPECIMEN TYPE: 5 core samples. LOCAL ANESTHETIC: 3 cc 1% buffered lidocaine superficial. 7 cc 1% buffered lidocaine with epinephrine deep COMPLICATIONS: None. LABORATORY: Core samples sent for pathology OTHER: Negative. PATHOLOGY: Pending. An addendum will be added when results are available. US/US breast vac bx w/ clip LT IMPRESSION: 1. Uneventful ultrasound guided fine needle aspiration (FNA). 2. Pathology results are pending. Electronically authenticated by: CODY BAUTISTA Date: 02/19/2024 16:05
--- NOTE | 2024-02-19 13:55 | MM_ITS ---
Patient Name: ORESTES ALVARES MR#: [id number] : 1965 Exam Date: 02/19/2024 Ordering Doctor: TAMMY WANG [facility] RADIOLOGY REPORT PROCEDURE: MM POST BIOPSY LT COMPARISON: MM TOMOSYNTHESIS DIAGNOSTIC BI, 01/12/2024. INDICATIONS: Left Breast Spiculated Mass BREAST COMPOSITION: FINDINGS: Post-Procedure Mammogram for Marker Placement BIOPSY MARKER: A metallic marker has been placed in the targeted location within the upper inner quadrant of the left breast. BREAST FINDINGS: Expected postprocedural changes Dictated by: Bhupendra Neves MD on 02/20/2024 at 07:50 Approved by: Bhupendra Neves MD on 02/20/2024 at 07:51
[2024-02-19 14:00] VITALS: BP 149/112; PULSE 84; O2SAT 97
[2024-02-19] MEDS: LIDOCAINE HCL/EPINEPHRINE 10 ML, SODIUM BICARBONATE 1 MEQ INJ (14:55)
[2024-02-19] MEDS: LIDOCAINE HCL 10 ML, SODIUM BICARBONATE 1 MEQ INJ (14:55)
--- NOTE | 2024-02-19 15:47 | SUR.PREOP ---
01/25/24 Called pt and left message to schedule. 01/30/24 Pt cancelled appt. 02/02/24 Called pt left message to reschedule. 02/09/24 Called pt and rescheduled appt for 02/19/24.
== END 2024-02-19 15:35 | disposition home or self-care (01) ==
LOC: US 13:49
PROVIDERS: Radiology Diagnostic Radiology; PCP Family Medicine; Visit Provider Nurse Practitioner Family
DX: R92.8 Other abnormal and inconclusive findings on diagnostic imaging of breast (principal); N63.22 Unspecified lump in the left breast, upper inner quadrant; N64.89 Other specified disorders of breast
CPT/HCPCS: 19083; 77065; 88305

== ENCOUNTER 2024-04-21 22:12 | Inpatient (IN) | payer OTHER, SELFPAY ==
[2024-04-21] VITALS (10 sets, daily range): BP systolic 157; BP diastolic 93; PULSE 59–90; TEMP 36.6; O2SAT 91; BMI 29.1
--- NOTE | 2024-04-21 14:37 | ECG_ITS ---
[facility] Test Date: 2024-04-21 Pat Name: ORESTES ALVARES Department: Room: [facility] Gender: Female Continuous Improvement Specialist: : 1965 Requested By: [id number] Order Number: [id number] Reading MD: SHANAE SHEEHAN Measurements Intervals Rogers Rate: 81 P: -[id number] ID: [id number] QRS: 112 QRSD: 72 T: 60 QT: 396 QTc: 433 Interpretive Statements 1210 Atrial fibrillation 5120 Possible right ventricular hypertrophy Low voltage across the precordium Nonspecific T wave changes 9150 abnormal ECG Electronically Signed On 04-22-2024 20:36:18 EST by SHANAE SHEEHAN
--- OUTSIDE RECORDS SUMMARY | 2024-04-21 22:29 | XMS_ITS | CCD ---
Author Organization [facility] CliniSymo Care Team Providers Care Property Man Name Role Phone PHYSICIAN, DEFAULT Unavailable Unavailable PHYSICIAN, DEFAULT Unavailable Unavailable CASON, LASHA Unavailable Unavailable PHYSICIAN, DEFAULT Unavailable Unavailable PHYSICIAN, DEFAULT Unavailable Unavailable CASON, LASHA Unavailable Unavailable DO Segundo Rawls Primary Care Provider DO Hong Mcintosh Admit Provider [phone] DO Hong Mcintosh Attending Provider MD Rehan Isidro Other Provider MD Nilesh Oakley Other Provider [...] Provider MD Lul Austin Jr Other Provider [phone] MD Jagruti Ugalde Other Provider MD Brad [...] Referring UnavailDO Segundo Schaeffer Primary Care Provider DO Caden Jarrell Emergency Provider Vaibhav, William Unavailable Katie Velasquez APRN Primary Care Provider Katie Velasquez APRN Attending Provider Katie Velasquez Attending Unavailable Katie Velasquez Primary Care Unavailable Katie Velasquez Admitting Unavailable Allergies Allergy Classification Reported Allergen(s) Allergy Type Date of Onset Reaction(s) Facility (2 sources) cephalexin; Translations: [KEFLEX] Drug Allergy 4 AOF [facility] (9 sources) predniSONE; Translations: [PREDNISONE] Drug Allergy 5 Swelling [facility] (7 sources) Cephalexin; Translations: [cephalexin] Drug Allergy 2 Nausea, Unknown [facility] Medications Current Medications Medication Drug Class(es) Dates Sig (Normalized) Sig (Original) ascorbic acid 500 mg oral tablet (6 sources) Vitamin C Start: 12-10-2021 take 1 tablet by mouth at breakfast Ascorbic Acid (Vitamin C) (Vitamin C) 500 mg Tablet Active 500 MG PO With breakfast and lunch 60 30 December 09, 2021 11:00pm Calcium 1000 + D 1000-20 MG-MCG (1 source) take 1 tablet by mouth twice daily Calcium 1000 + D 1000-20 MG-MCG 1 tablet with a meal Orally twice a day Active calcium carbonate 1250 mg oral tablet (5 sources) Start: 12-10-2021 Calcium Carbonate (Oyster Shell Calcium 500) 500 mg calcium (1,250 mg) Tablet Active 1000 MG PO Twice daily 120 December 09, 2021 11:00pm calcium carbonate 298 mg / magnesium chloride 596 mg delayed release oral tablet (1 source) take 1 tablet by mouth every twenty-four hours Slow-Mag 71.5-119 MG 1 TABLET Orally Once a day Active cholecalciferol 0.01 mg oral tablet (5 sources) Vitamin D Start: 12-10-2021 take 1 tablet by mouth twice daily at mealtime Cholecalciferol (Vitamin D3) (Vitamin D3) 10 mcg (400 unit) Tablet Active 20 MCG PO Twice daily with meals 120 December 09, 2021 11:00pm ferrous sulfate 324 mg delayed release oral tablet (6 sources) Start: 12-10-2021 Ferrous Sulfate 324 mg (65 mg iron) Tablet,Delayed Release (Dr/Ec) Active 324 MG PO Q48H 15 December 09, 2021 11:00pm take 1 tablet by ryan th every twenty-four hours Ferrous Sulfate 324 MG 1 tablet Orally Once a day Not-Taking folic acid 1 mg oral tablet (6 sources) Start: 12-10-2021 take 1 tablet by mouth once daily Folic Acid 1 mg Tablet Active 1 MG PO Daily December 09, 2021 11:00pm magnesium oxide 400 mg oral tablet (6 sources) Start: 09-28-2023 End: 09-28-2023 take 1 tablet by mouth twice daily Magnesium Oxide 400 mg magnesium tablet Active 400 MG PO Twice daily 180 90 September 28, 2023 2:07pm metoprolol tartrate 100 mg oral tablet (12 sources) beta-Adrenergic Humberto Start: 09-28-2023 End: 09-28-2023 Metoprolol Tartrate 100 mg tablet Active 150 MG PO Daily 135 90 September 28, 2023 2:07pm Start: 09-28-2023 End: 09-28-2023 take 150 mg by mouth once daily Metoprolol Tartrate Ac tive 150 MG PO Daily 135 90 September 28, 2023 3:07pm Start: 12-04-2021 End: 09-28-2023 take 1 tablet by mouth once daily Metoprolol Succinate 100 mg tablet extended release 24 hr Discontinued 100 MG PO Daily December 03, 2021 11:00pm September 28, 2023 1:56pm thiamine 200 mg oral tablet (6 sources) Start: 12-10-2021 Thiamine Hcl ( Vitamin B1) 100 mg Tablet Active 200 MG PO Daily 60 30 December 09, 2021 11:00pm take 1 tablet by mouth once charito [...] Not-Taking diphenhydrAMINE hydrochloride 25 mg oral capsule (5 sources) Histamine-1 Receptor Antagonist Start: 12-04-2021 End: 12-10-2021 take 1 capsule by mouth twice daily Diphenhydramine Hcl (Benadryl) 25 mg Capsule Discontinued 25 MG PO Twice daily December 03, 2021 11:00pm December 10, 2021 12:24pm furosemide 40 mg oral tablet (6 sources) Loop Diuretic Start: 12-10-2021 End: 09-28-2023 take 1 tablet by mouth once daily Furosemide 40 mg Tablet Discontinued 40 MG PO Daily at 0800 30 December 09, 2021 11:00pm September 28, 2023 1:56pm Further refills, or dose adjustment, per Nephrology with Dr. Esposito. levoFLOXacin 750 mg oral tablet (5 sources) Quinolone Antimicrobial Start: 12-10-2021 End: 09-27-2023 Levofloxacin 750 mg Tablet Discontinued 750 MG PO Q48H 4 8 December 09, 2021 11:00pm September 27, 2023 3:47pm Next dose is due on Monday. levothyroxine sodium 0.1 mg oral capsule (15 sources) l-Thyroxine Start: 09-28-2023 End: 09-28-2023 take 1 capsule by mouth once daily Levothyroxine 100 mcg capsule Discontinued 100 MCG PO Daily 90 90 September 28, 2023 2:06pm September 28, 2023 2:20pm Start: 12-04-2021 End: 09-28-2023 take 1 tablet by mouth once daily Levothyroxine 100 mcg tablet Active 100 MCG PO Daily September 27, 2023 11:00pm take 1 tablet by ryan th once daily in the morning Levothyroxine Sodium 100 MCG 1 tablet in the morning on an empty stomach Orally Once a day Active lisinopril 20 mg oral tablet (5 sources) Angiotensin Converting Enzyme Inhibitor Start: 12-04-2021 End: 12-10-2021 take 1 tablet by mouth once daily Lisinopril 20 mg tablet Discontinued 20 MG PO Daily December 03, 2021 11:00pm December 10, 2021 12:24pm magnesium chloride 598 mg delayed release oral tablet (5 sources) Start: 12-10-2021 End: 09-28-2023 take 1 tablet by mouth once daily Magnesium Chloride (Slow-Mag) 71.5 mg tablet,delayed release (DR/EC) Discontinued 71.5 MG PO Daily December 09, 2021 11:00pm September 28, 2023 1:56pm naltrexone hydrochloride 50 mg oral tablet (1 source) Opioid Antagonist take 1 tablet by mouth every twenty-four hours Naltrexone HCl 50 MG 1 tablet Orally Once a day Not-Taking omeprazole 20 mg delayed release oral capsule (12 sources) Proton Pump Inhibitor Start: 12-04-2021 End: 09-28-2023 take 1 capsule by mouth once daily Omeprazole 20 mg capsule,delayed release(DR/EC) Discontinued 20 MG PO Daily September 27, 2023 11:00pm September 28, 2023 2:09pm sodium bicarbonate 650 mg oral tablet (6 sources) Start: 12-10-2021 End: 09-28-2023 take 1 tablet by mouth three times daily Sodium Bicarbonate 650 mg Tablet Discontinued 650 MG PO Three times daily December 09, 2021 11:00pm September 28, 2023 1:57pm Problems Problem Classification Problem Date Documented Date Episodic/Chronic Acute and unspecified renal failure (7 sources) Injury of kidney; Translations: [Acute kidney failure, unspecified] Onset: 12-07-2021 12-04-2021 Episodic Acute myocardial infarction (10 sources) Myocardial infarction; Translations: [Myocardial infarction type 2] 12-05-2021 Chronic Alcohol-related disorders (10 sources) Alcohol abuse; Translations: [Alcohol abuse, uncomplicated] Onset: 12-21-2021 12-04-2021 Chronic Anxiety disorders (1 source) Anxiety disorder, unspecified; Translations: [ANXIETY DISORDER UNSPECIFIED] Onset: 12-21-2021 Chronic Cardiac dysrhythmias (16 sources) Atrial fibrillation; Translations: [Unspecified atrial fibrillation] 12-06-2021 Chronic Chronic kidney disease (1 source) [...] kidney disease Chronic Deficiency and other anemia (5 sources) Macrocytic anemia; Translations: [Nutritional anemia, unspecified] 12-06-2021 Episodic Deficiency and other anemia (5 sources) Anemia; Translations: [Anemia, unspecified] 12-04-2021 Episodic Deficiency and other anemia (1 source) Anemia, unspecified; Translations: [Anemia, unspecified] 12-10-2021 Episodic Deficiency and other anemia (1 source) Nutritional anemia, unspecified; Translations: [Unspecified deficiency anemia] 12-10-2021 Episodic Esophageal disorders (7 sources) Gastroesophageal reflux disease; Translations: [Gastro-esophageal reflux disease without esophagitis] 09-28-2023 Chronic Essential hypertension (15 sources) Hypertensive disorder; Translations: [Essential (primary) hypertension] Onset: 12-21-2021 12-04-2021 Chronic Fluid and electrolyte disorders (15 sources) Hyponatremia; Translations: [Hypo-osmolality and hyponatremia] Onset: 12-07-2021 12-04-2021 Episodic Hypertension with complications and secondary hypertension (4 sources) Hypertensive urgency ; Translations: [Hypertensive urgency] Chronic Malaise and fatigue (6 sources) Weakness; Translations: [Asthenia] Onset: 12-19-2021 Episodic Nonmalignant breast conditions (1 source) Breast lump; Translations: [Unspecified lump in the left breast, unspecified quadrant] 01-23-2024 Episodic Nutritional deficiencies (8 sources) Moderate protein energy malnutrition; Translations: [Moderate protein-calorie malnutrition] 12-04-2021 Chronic Nutritional deficiencies (17 sources) Ascorbic acid deficiency; Translations: [Ascorbic acid deficiency] 12-10-2021 Episodic Other aftercare (1 source) Other watermaster (current) drug therapy; Translations: [OTH CUFF TURNER CURRENT DRUG THERAPY] Onset: 12-21-2021 Episodic Other and ill-defined heart disease (5 sources) Takotsubo cardiomyopathy; Translations: [Takotsubo syndrome] 12-05-2021 Chronic Other and ill-defined heart disease (5 sources) Takotsubo syndrome; Translations: [Takotsubo syndrome] 12-10-2021 Chronic Other connective tissue disease (1 source) Recurrent falls ; Translations: [Repeated falls] 12-28-2023 Episodic Other connective tissue disease (1 source) Repeated falls; Translations: [History of fall] 12-27-2023 Episodic Other diseases of bladder and urethra (6 sources) Urethral stenosis; Translations: [Urethral stenosis] 12-08-2021 Episodic Other diseases of kidney and ureters (5 sources) Hydronephrosis; Translations: [Unspecified hydronephrosis] 12-08-2021 Episodic Other diseases of kidney and ureters (1 source) Unspecified hydronephrosis; Translations: [Hydronephrosis] 12-10-2021 Episodic Other hematologic conditions (1 source) Other specified abnormalities of plasma proteins; Translations: [OTH SPEC ABNORM PLASMA PROTEINS] Onset: 12-07-2021 Episodic Other nutritional; endocrine; and metabolic disorders (6 sources) Hypomagnesemia; Translations: [Hypomagnesemia] 12-04-2021 Chronic Other nutritional; endocrine; and metabolic disorders (5 sources) Hypocalcemia; Translations: [Hypocalcemia] 12-04-2021 Chronic Other nutritional; endocrine; and metabolic disorders (2 sources) Hypocalcemia; Translations: [Hypocalcemia] Onset: 12-07-2021 12-10-2021 Chronic Other nutritional; endocrine; and metabolic disorders (5 sources) Hypomagnesemia; Translations: [Disorders of magnesium metabolism] 12-10-2021 Chronic Other screening for suspected conditions (not mental disorders or infectious disease) (1 source) Mammography abnormal; Translations: [Other abnormal and inconclusive findings on diagnostic imaging of breast] 01-23-2024 Episodic Other skin disorders (2 sources) Breast changes; Translations: [Changes in skin texture] 12-27-2023 Episodic Other skin disorders (2 sources) Changes in skin texture; Translations: [Changes in skin texture] 12-27-2023 Episodic Residual codes; unclassified (2 sources) Noncompliance with treatment; Translations: [Noncompliance] 12-28-2023 Episodic Rheumatoid arthritis and related disease (7 sources) Rheumatoid arthritis; Translations: [Rheumatoid arthritis, unspecified] 09-28-2023 Chronic Substance-related disorders (1 source) Nicotine dependence, cigarettes, uncomplicated; Translations: [NICOTINE DEPEND CIGARETTES UNCOMP] Onset: 12-21-2021 Chronic Syncope (6 sources) Vasovagal syncope; Translations: [Syncope and collapse] 12-06-2021 Episodic Systemic lupus erythematosus and connective tissue disorders (7 sources) Lupus erythematosus; Translations: [Systemic lupus erythematosus, unspecified] 09-28-2023 Chronic Thyroid disorders (11 sources) Hypothyroidism; Translations: [Hypothyroidism, unspecified] Onset: 12-21-2021 12-04-2021 Chronic Unclassified (1 source) CONTACT W/AND (SUSP) EXPOS COVID-19; Translations: [CONTACT W/AND (SUSP) EXPOS COVID-19] Onset: 12-21-2021 Unclassified (4 sources) Large breast; Translations: [Increased size of breast] 12-27-2023 Results Test Name Value Interpretation Reference Range Facility Pathology study report docum entOrdered By: Maury Schafer on 02-22-2024 Pathology study [facility] Other Phone: Kael 02-19-2024 L ------ Specimen: [id number] Received: 02/20/24 Status: MARCELO Morelos Num: [id number] Spec Type: Surgical Subm Dr: Cody Neves MD Tissues: A BREAST CORE NO CALCS (LEFT BREAST) Procedures: HE, Gross/Micro L4 Age/ Patient Sex Location Account Attending Physician Juanita Redman 59/F LABELL [id number] Katie Velasquez APRN, SPEC NUM: [id number] RECD: 02/20/24 STATUS: MARCELO MORELOS NUM: [id number] LYNDSEY: 02/19/[address] [facility] [address]: Cody Neves MD ENTERED: 02/20/[address] [facility] [address]: Kim,Chinmay Velasquez APRN, PREFORMS LAMINATOR SPEC TYPE: Surgical DEPT: JUANIS PERES ENTERED BY: [id number] RECV BY: [id number] ORDERED: , Gross/Micro L4 ORDERED: , Gross/Micro L4 Pathological Diagnosis Left breast, mass at 10:00, Ultrasound-guided core needle biopsy: - 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 - No evidence of malignancy identified. Comment: Intradepartmental review was performed on this case. Dr. Blake concurred the above diagnosis. Clinical Information Left breast mass, 10:00 Gross Description Received in formalin labeled with the patients name and left breast 10:00 mass are four pale bill to yellow walton, delicate needle core biopsy segments, 1.3-2.1 cm in length by 0.2- 0.3 cm in diameter with detached fragments of fibrofatty tissue, 1 x 0.5 x 0.2 cm in aggregate. The cores are entirely submitted in Cassette A1 with the fragmented fibrofatty tissue filtered and entirely submitted in A2. Fixation time: Time tissue removed from patient: 1503 Time specimen placed in formalin: 1506 Specimen: [id number] Received: 02/20/24 Status: MARCELO Alemanbetzadia Num: [id number] Spec Type: Surgical Subm Dr: Cody Neves MD Tissues: A BREAST CORE NO CALCS (LEFT BREAST) Procedures: HE/4, Gross/Micro L4 Patient: Juanita Redman [id number] (Continued) Specimen: [id number] Received: 02/20/24 (Continued) Gross Description (Continued) Signed (signature on file) Maury Schafer MD 02/22/24 1036 Specimen: [id number] Received: 02/20/24 Status: MARCELO Alemanbetzaida Num: [id number] Spec Type: Surgical Subm Dr: Cody Neves MD Tissues: A BREAST CORE NO CALCS (LEFT BREAST) Procedures: /4, Gross/Micro L4 Patient: Juanita Redman [id number] (Continued) Specimen: [id number] Received: 02/20/24 (Continued) Gross Description (Continued) Cold ischemic time: 2 minutes Total fixation time: 26 hours and 30 minutes (2, ns, [id number]) VIVIEN Microscopic Description Microscopic examination is performed. CPT Codes 11798 Specimen: [id number] Received: 02/20/24094 Status: MARCELO Morelos Num: [id number] Spec Type: Surgical Subm Dr: Cody Neves MD Tissues: A BREAST CORE NO CALCS (LEFT BREAST) Procedures: Lilibeth DOVER/John L4 Patient: Juanita Redman [id number] (Continued) Signed (signature on file) Maury Schafer MD 02/22/24 1036 Normal [facility] Activated partial thrombopla stin time (aPTT) in platelet poor plasma by coagulation aOrdered By: Caden Jarrell on 03-15-2022 aPTT Coag (PPP) [Time] 30.8 s 25.1-36.5 [facility] Basophils Auto (Bld) [#/Vol] Ordered By: Caden Jarrell on 03-15-2022 Basophils (Bld) [#/Vol] 0.1 10*3/uL 0.0-0.2 [facility] Basophils/100 WBC Auto (Bld) Ordered By: Caden Jarrell on 03-15-2022 Basophils/100 WBC (Bld) 0.9 % . [facility] Creatine kinase [Enzymatic a ctivity/volume] in Serum or PlasmaOrdered By: Caden Jarrell on 03-15-2022 CK [Catalytic activity/Vol] 33 U/L 22-269 [facility] Creatinine and Glomerular fi ltration rate.predicted panel (S/P/Bld)Ordered By: Caden Jarrell on 03-15-2022 Creatinine [Mass/Vol] 1.34 mg/dL 0.44-1.03 [facility] Eosinophils Auto (Bld) [#/Vo l]Ordered By: Caden Jarrell on 03-15-2022 Eosinophils (Bld) [#/Vol] 0.0 10*3/uL 0.0-0.45 [facility] Eosinophils/100 WBC Auto (Bl d)Ordered By: Caden Jarrell on 03-15-2022 Eosinophils/100 WBC (Bld) 0.2 % . [facility] Erythrocyte distribution wid th Auto (RBC) [Ratio]Ordered By: Caden Jarrell on 03-15-2022 Erythrocyte distribution width (RBC) [Ratio] 13.6 % 11.9-15.3 [facility] Estimated glomerular filtrat ion rate (GFR) non- AmericanOrdered By: Caden Jarrell on 03-15-2022 GFR/1.73 sq M.predicted among non-blacks MDRD (S/P/Bld) [Vol rate/Area] 40 mL/Min [facility] Hematocrit Auto (Bld) [Volum e fraction]Ordered By: Caden Jarrell on 03-15-2022 Hematocrit (Bld) [Volume fraction] 31.6 % 34.0-46.4 [facility] Hemoglobin [Mass/volume] in BloodOrdered By: Caden Jarrell on 03-15-2022 Hemoglobin (Bld) [Mass/Vol] 11.0 g/dL 11.8-15.4 [facility] Laboratory - Chemistry and C hemistry - challengeOrdered By: Caden Jarrell on 03-15-2022 Natriuretic peptide B (Bld) [Mass/Vol] 1767.0 pg/mL 5-100 [facility] Laboratory - CoagulationOrde red By: Caden Jarrell on 03-15-2022 PT Coag (PPP) [Time] 13.2 s 9.0-12.9 [facility] Leukocytes [#/volume] correc maxi for nucleated erythrocytes in Blood by Automated counOrdered By: Caden Jarrell on 03-15-2022 WBC corrected for nucl RBC Auto (Bld) [#/Vol] 7.8 10*3/uL 3.8-11.6 [facility] Lymphocytes Auto (Bld) [#/Vo l]Ordered By: Caden Jarrell on 03-15-2022 Lymphocytes (Bld) [#/Vol] 0.8 10*3/uL 1.00-4.8 [facility] Lymphocytes/100 WBC Auto (Bl d)Ordered By: Caden Jarrell on 03-15-2022 Lymphocytes/100 WBC (Bld) 10.6 % . [facility] MCH Auto (RBC) [Entitic mass ]Ordered By: Caden Jarrell on 03-15-2022 MCH (RBC) [Entitic mass] 32.1 pg 24.7-34.3 [facility] MCHC Auto (RBC) [Mass/Vol]Or dered By: Caden Jarrell on 03-15-2022 MCHC (RBC) [Mass/Vol] 34.7 g/dL 32.0-35.0 [facility] MCV Auto (RBC) [Entitic vol] Ordered By: Caden Jarrell on 03-15-2022 MCV (RBC) [Entitic vol] 92.3 fL 80-100 [facility] Monocyte distribution width [Entitic volume] in Blood by AutomatedOrdered By: Caden Jarrell on 03-15-2022 Monocyte distribution width Auto (Bld) [Entitic vol] 19.45 % 0.00-20.00 [facility] Monocytes Auto (Bld) [#/Vol] Ordered By: Caden Jarrell on 03-15-2022 Monocytes (Bld) [#/Vol] 0.8 10*3/uL 0.0-0.8 [facility] Monocytes/100 WBC Auto (Bld) Ordered By: Caden Jarrell on 03-15-2022 Monocytes/100 WBC (Bld) 10.2 % . [facility] Neutrophils Auto (Bld) [#/Vo l]Ordered By: Caden Jarrell on 03-15-2022 Neutrophils (Bld) [#/Vol] 6.1 10*3/uL 1.8-7.7 [facility] Neutrophils/100 WBC Auto (Bl d)Ordered By: Caden Jarrell on 03-15-2022 Neutrophils/100 WBC (Bld) 78.1 % . [facility] No Panel InformationOrdered By: Caden Jarrell on 03-15-2022 Estimated GFR () 49 mL/Min [facility] Comment on above: GFR estimated refere nce range: According to KDOQI guidelines, <60 ml/min/1.73m2 is sufficient to diagnose a patient with chronic kidney disease. Pharmacy Creatinine Clearance (Chem 43.20 [facility] Nucleated erythrocytes [Pres ence] in Blood by Automated countOrdered By: Caden Jarrell on 03-15-2022 Nucleated RBC Auto Ql (Bld) 0.1 /100{WBC} 0-0.5 [facility] Platelet mean volume Auto (B ld) [Entitic vol]Ordered By: Caden Jarrell on 03-15-2022 Platelet mean volume (Bld) [Entitic vol] 7.1 fL 6.3-10.7 [facility] Platelet poor plasma interna tional normalized ratio (INR) by coagulation assay (relatOrdered By: Caden Jarrell on 03-15-2022 INR Coag (PPP) [Relative time] 1.2 {INR} [facility] Comment on above: INR Therapeutic Rang e [...] 03-15-2022 Platelets (Bld) [#/Vol] 277 10*3/uL 150-450 [facility] RBC Auto (Bld) [#/Vol]Ordere d By: Caden Jarrell on 03-15-2022 RBC (Bld) [#/Vol] 3.43 10*6/uL 3.60-5.00 [facility] Serum or plasma anion gap de terminationOrdered By: Caden Jarrell on 03-15-2022 Anion gap [Moles/Vol] 14.5 mmol/L 6.0-15.0 [facility] Serum or plasma calcium sigifredo urement (mass/volume)Ordered By: Caden Jarrell on 03-15-2022 Calcium [Mass/Vol] 9.3 mg/dL 8.2-10.2 [facility] Serum or plasma chloride matti surement (moles/volume)Ordered By: Caden Jarrell on 03-15-2022 Chloride [Moles/Vol] 95 mmol/L 95-114 [facility] Serum or plasma creatine kin ase MB (CKMB)/total creatine kinase (CK) ratio by calculaOrdered By: Caden Jarrell on 03-15-2022 CK.MB Calc [Catalytic fraction] 5.1 % 0.00-2.50 [facility] Serum or plasma creatine kin ase MB measurement (mass/volume)Ordered By: Caden Jarrell on 03-15-2022 CK.MB [Mass/Vol] 1.7 ng/mL 0.6-6.3 [facility] Serum or plasma glucose sigifredo urement (mass/volume)Ordered By: Caden Jarrell on 03-15-2022 Glucose [Mass/Vol] 129 mg/dL 70-100 [facility] Comment on above: ADA recommended refe rence rangeRandom Glucose Reference Range is dependent on time and content of last meal. Glucose of more than 200 mg/dL in a nonstressed, ambulatory subject supports the diagnosis of Diabetes Mellitus. Serum or plasma potassium me asurement (moles/volume)Ordered By: Caden Jarrell on 03-15-2022 Potassium [Moles/Vol] 3.4 mmol/L 3.5-5.1 [facility] Serum or plasma sodium measu rement (moles/volume)Ordered By: Caden Jarrell on 03-15-2022 Sodium [Moles/Vol] 129 mmol/L 136-146 [facility] Serum or plasma total carbon dioxide measurement (moles/volume)Ordered By: Caden Jarrell on 03-15-2022 CO2 [Moles/Vol] 22.9 mmol/L 22.0-30.0 [facility] Serum or plasma urea nitroge n measurement (mass/volume)Ordered By: Caden Jarrell on 03-15-2022 Urea nitrogen [Mass/Vol] 14 mg/dL 9- [facility] Troponin I.cardiac [Mass/vol ume] in Serum or Plasma by High sensitivity methodOrdered By: Caden Jarrell on 03-15-2022 Troponin I.cardiac High sensitivity method [Mass/Vol] 24 pg/mL 0-15 [facility] WBC Auto (Bld) [#/Vol]Ordere d By: Caden Jarrell on 03-15-2022 WBC (Bld) [#/Vol] 7.8 10*3/uL 3.8-11.6 [facility] CBC AUTO DIFFon 12-19-2021 BASO # 0.0 103/ul Normal 0.0-0.1 [facility] Comment on above: Performed By: #### H STROPN #### [facility] [address] [address] [address] Debra Blake Basophils/100 WBC (Bld) 0.5 % Normal 0.2-2.0 [facility] Comment on above: Performed By: #### H STROPN #### [facility] [address] [address] [address] Debra Blake EO # 0.1 103/ul Normal 0.0-0.7 [facility] Comment on above: Performed By: #### H STROPN #### [facility] [address] [place] [address] Dr. Debra Blake Eosinophils/100 WBC (Bld) 1.4 % Normal 0.9-7.0 [facility] Comment on above: Performed By: #### H STROPN #### [facility] [address] [place] [place] [address] Dr. Debra Blake Erythrocyte distribution width (RBC) [Ratio] 14.1 % Normal 11.0-15.0 [facility] Comment on above: Performed By: #### H STROPN #### [facility] [address] [place] [place] [address] Dr. Debra Blake Hematocrit (Bld) [Volume fraction] 26.2 % Critically low 36.0-48.0 [facility] Comment on above: Performed By: #### H STROPN #### [facility] [address] [place] [place] [address] Dr. Debra Blake Hemoglobin (Bld) [Mass/Vol] 9.1 g/dL Critically low 12.0-16.0 [facility] Comment on above: Performed By: #### H STROPN #### [facility] [address] [place] [place] [address] Dr. Debra Blake IG # 0.03 10e3/ul Normal 0.00-0.03 [facility] Comment on above: Performed By: #### H STROPN #### [facility] [address] [address] Dr. Debra Blake IG % 0.4 % Normal 0.0-0.5 [facility] Comment on above: Performed By: #### H STROPN #### [facility] [address] [place] [address] Dr. Debra Blake LYMPH # 1.5 103/ul Normal 1.2-3.8 [facility] Comment on above: Performed By: #### H STROPN #### [facility] [address] [place] [address] Dr. Debra Blake Lymphocytes/100 WBC (Bld) 19.0 % Critically low 20.5-60.0 [facility] Comment on above: Performed By: #### H STROPN #### [facility] [address] [place] [address] Dr. Debra Blake MANUAL DIFF REQ NO Normal [facility] Comment on above: Performed By: #### H STROPN #### [facility] [address] [place] [address] Dr. Debra Blake MCH (RBC) [Entitic mass] 34.3 pg Critically high 26.7-3 4.0 [facility] Comment on above: Performed By: #### H STROPN #### [facility] [address] [place] [address] Dr. Debra Blake MCHC (RBC) [Mass/Vol] 34.7 g/dL Normal 29.9-35.2 [facility] Comment on above: Performed By: #### H STROPN #### [facility] [address] [place] [place] [address] Dr. Debra Blake MCV (RBC) [Entitic vol] 98.9 fL Normal 81.0-99.0 [facility] Comment on above: Performed By: #### H STROPN #### [facility] [address] [place] [place] [address] Dr. Debra Blake MONO # 0.8 103/ul Normal 0.3-0.8 [facility] Comment on above: Performed By: #### H STROPN #### [facility] [address] [place] [address] Dr. Debra Blake Monocytes/100 WBC (Bld) 10.0 % Normal 1.7-12.0 [facility] Comment on above: Performed By: #### H STROPN #### [facility] [address] [place] [place] [address] Dr. Debra Blake NEUT # 5.5 103/ul Normal 1.4-6.5 [facility] Comment on above: Performed By: #### H STROPN #### [facility] [address] [place] [address] Dr. Debra Blake Neutrophils/100 WBC (Bld) 68.7 % Normal 43.0-75.0 [facility] Comment on above: Performed By: #### H STROPN #### [facility] [address] [place] [address] Dr. Debra Blake Platelet mean volume (Bld) [Entitic vol] 9.5 fL Normal 9.5-13.5 [facility] Comment on above: Performed By: #### H STROPN #### [facility] [address] [place] [address] Dr. Debra Blake PLT 300 103/ul Normal 150-450 [facility] Comment on above: Performed By: #### H STROPN #### [facility] [address] [place] [address] Dr. Debra Blake RBC 2.65 106/ul Critically low 4.20-5.40 [facility] Comment on above: Performed By: #### H STROPN #### [facility] [address] [place] [address] Dr. Debra Blake WBC 8.1 103/ul Normal 4.0-11.0 [facility] Comment on above: Performed By: #### H STROPN #### [facility] [address] [place] [address] Dr. Debra Blake [facility]on [facility]-09 SARS-CoV-2 (COVID-19) RNA YVONNE+probe Ql (Unsp spec) Not detected Normal NOT DETECTED [facility] Comment on above: Result Comment: When diagnostic [...] for this test is supported by the [place] of Health and Human Service's declaration that [...] used). Performed By: #### C VDTB #### [facility] [address] [place] [address] Dr. Debra Blake ER URINE PROFILEon 2 Bilirubin Ql (U) Negative Normal NEGATIVE [facility] Comment on above: Performed By: #### H STROPN #### [facility] [address] [place] [address] Dr. Debra Blake Clarity (U) CLEAR Normal CLEAR [facility] Comment on above: Performed By: #### H STROPN #### [facility] [address] [place] [address] Dr. Debra Blake Color (U) LT. YELLOW Normal YELLOW [facility] Comment on above: Performed By: #### H STROPN #### [facility] [address] [place] [address] Dr. Debra Blake ERUAHD A micrscopic examina tion will be performed if indicated. Normal [facility] Comment on above: Performed By: #### H STROPN #### [facility] [address] [place] [address] Dr. Debra Blake Glucose Ql (U) Negative Normal NEGATIVE [facility] Comment on above: Performed By: #### H STROPN #### [facility] [address] [place] [address] Dr. Debra Blake Hemoglobin Ql (U) Negative Normal NEGATIVE [facility] Comment on above: Performed By: #### H STROPN #### [facility] [address] [place] [address] Dr. Debra Blake Ketones Ql (U) Negative Normal NEGATIVE [facility] Comment on above: Performed By: #### H STROPN #### [facility] [address] [place] [address] Dr. Debra Blake LEUKOCYTES Negative Normal NEGATIVE [facility] Comment on above: Performed By: #### H STROPN #### [facility] [address] [place] [address] Dr. Derba Blake Nitrite Ql (U) Negative Normal NEGATIVE [facility] Comment on above: Performed By: #### H STROPN #### [facility] [address] [place] [address] Dr. Debra Blake pH (U) 7.0 [pH] Normal 5-9 [facility] Comment on above: Performed By: #### H STROPN #### [facility] [address] [place] [address] Dr. Debra Blake SPEC GRAVITY 1.010 Normal 1.005-<=1. 025 [facility] Comment on above: Performed By: #### H STROPN #### [facility] [address] [place] [address] Dr. Debra Blake UA PROTEIN TRACE Normal NEGATIVE/ TRACE [facility] Comment on above: Performed By: #### H STROPN #### [facility] [address] [place] [address] Dr. Debra Blake UR MICRO IND NOT INDICATED Normal [facility] Comment on above: Performed By: #### H STROPN #### [facility] [address] [place] [address] Dr. Debra Blake Urobilinogen Qn (U) 0.2 {Pascale'U}/dL Normal 0.2 - 1. 0 [facility] Comment on above: Performed By: #### H STROPN #### [facility] [address] [place] [address] Dr. Debra Blake ETHANOL (BLD ALC)on 12-20-19 ALC NOTE NOTE: 80 mg/dl is th e legal limit for a blood alcohol level Normal [facility] Comment on above: Performed By: #### E TH #### [facility] [address] [place] [address] Dr. Debra Blake Ethanol [Mass/Vol] mg/dL Normal [facility] Comment on above: Performed By: #### E TH #### [facility] [address] [place] [address] Dr. Debra Blake PROF CHEM 8 (BAS METB)on Anion gap [Moles/Vol] 14.8 mmol/L Normal [facility] Comment on above: Performed By: #### H STROPN, CMP #### [facility] [address] [place] [address] Dr. Debra Blake Calcium [Mass/Vol] 7.6 mg/dL Critically low 8.5-10.1 [facility] Comment on above: Performed By: #### H STROPN, CMP #### [facility] [address] [address] [address] Debra Blake Chloride [Moles/Vol] 93 mmol/L Critically low 98-107 [facility] Comment on above: Performed By: #### H STROPN, CMP #### [facility] [address] [place] [address] Dr. Debra Blake CO2 [Moles/Vol] 30.6 mmol/L Normal 21.0-32.0 [facility] Comment on above: Performed By: #### H STROPN, CMP #### [facility] [address] [address] [address] Debra Blake Creatinine [Mass/Vol] 2.27 mg/dL Critically high 0.55-1.02 [facility] Comment on above: Performed By: #### H STROPN, CMP #### [facility] [address] [place] [address] Dr. Debra Blake EGFR-AF TRINIDADIAN 27 mL/min/1.73m2 Critically low >=60 [facility] Comment on above: Performed By: #### H STROPN, CMP #### [facility] [address] [address] [address] Debra Blake EGFR-NON AF TRINIDADIAN 22 mL/min/1.73m2 Critically low >=60 [facility] Comment on above: Performed By: #### H STROPN, CMP #### [facility] [address] [address] [address] Debra Blake Glucose [Mass/Vol] 114 mg/dL Critically high 74-106 [facility] Comment on above: Performed By: #### H STROPN, CMP #### [facility] [address] [address] [address] Debra Blake Potassium [Moles/Vol] 3.4 mmol/L Critically low 3.5-5.1 [facility] Comment on above: Performed By: #### H STROPN, CMP #### [facility] [address] [address] [address] Debra Blake Sodium [Moles/Vol] 135 mmol/L Critically low 136-145 [facility] Comment on above: Performed By: #### H STROPN, CMP #### [facility] [address] [address] [address] Debra Blake Urea nitrogen [Mass/Vol] 20.0 mg/dL Critically high 7.0-18 .0 [facility] Comment on above: Performed By: #### H STROPN, CMP #### [facility] [address] [address] [address] Debra Blake Urea nitrogen/Creatinine [Mass ratio] 8.8 mg/mg Normal [facility] Comment on above: Performed By: #### H STROPN, CMP #### [facility] [address] [address] [address] Debra Blake TROPONIN, HIGH SENSITIVITYon 12-19-2021 HSTROP 16.7 pg/mL Normal 4.0-51.3 [facility] Comment on above: Result Comment: CUT- OFF POINTS HAVE BEEN ESTABLISHED BASED ON THE FOURTH UNIVERSAL DEFINITIONS OF MYOCARDIAL INFARCTION. THE UPPER REFERENCE LIMIT (URL) OF TROPONIN, DEFINED THE 99TH PERCENTILE OF cTnI DISTRIBUTION IN A REFERENCE POPULATION, HAS BEEN CONFIRMED THE DECISION THRESHOLD FOR SC DIAGNOSIS. Performed By: #### H STROPN #### [facility] [address] [address] [address] Debra Blake XR CHEST 1 Von [...] by: DENISE MESSER Date: 2021-12-19 15:57 Normal [facility] Consultation Noteon 12-16-19 Consultation Note [id number]#[id number]:127 Normal [facility] RAD - CT Reporton 12-15-2021 RAD - CT Report [id number]#[id number]:127 Normal [facility] Basophils Auto (Bld) [#/Vol] Ordered By: Hong Mcintosh on 12-10-2021 Basophils (Bld) [#/Vol] 0.1 10*3/uL 0.0-0.2 [facility] Basophils/100 WBC Auto (Bld) Ordered By: Hong Mcintosh on 12-10-2021 Basophils/100 WBC (Bld) 0.9 % . [facility] Blood hemoglobin measurement (mass/volume)Ordered By: Hong Mcintosh on 12-10-2021 Hemoglobin (Bld) [Mass/Vol] 7.5 g/dL 11.8-15.4 [facility] Blood leukocytes automated c ount (number/volume)Ordered By: Hong Mcintosh on 12-10-2021 WBC (Bld) [#/Vol] 6.3 10*3/uL 4.5-11.0 [facility] Creatinine and Glomerular fi ltration rate.predicted panel (S/P/Bld)Ordered By: Hong Mcintosh on 12-10-2021 Creatinine [Mass/Vol] 1.84 mg/dL 0.44-1.03 [facility] Eosinophils Auto (Bld) [#/Vo l]Ordered By: Hong Mcintosh on 12-10-2021 Eosinophils (Bld) [#/Vol] 0.2 10*3/uL 0.0-0.45 [facility] Eosinophils/100 WBC Auto (Bl d)Ordered By: Hong Mcintosh on 12-10-2021 Eosinophils/100 WBC (Bld) 3.5 % . [facility] Erythrocyte distribution wid th Auto (RBC) [Ratio]Ordered By: Hong Mcintosh on 12-10-2021 Erythrocyte distribution width (RBC) [Ratio] 16.3 % 11.9-15.3 [facility] Estimated glomerular filtrat ion rate (GFR) non- AmericanOrdered By: Hong Mcintosh on 12-10-2021 GFR/1.73 sq M.predicted among non-blacks MDRD (S/P/Bld) [Vol rate/Area] 28 mL/Min [facility] Hematocrit Auto (Bld) [Volum e fraction]Ordered By: Hong Mcintosh on 12-10-2021 Hematocrit (Bld) [Volume fraction] 22.8 % 34.0-46.4 [facility] - Chemistry and C hemistry - challengeOrdered By: Hong Mcintosh on 12-10-2021 Magnesium [Mass/Vol] 0.7 mg/dL 1.6-2.6 [facility] Comment on above: Results called at 0825 on 12/10/21 Laboratory - Hematology and Cell countsOrdered By: Hong Mcintosh on 12-10-2021 Nucleated RBC/100 WBC (Bld) [Ratio] 0.0 % 0-0.5 [facility] Lymphocytes Auto (Bld) [#/Vo l]Ordered By: Hong Mcintosh on 12-10-2021 Lymphocytes (Bld) [#/Vol] 1.4 10*3/uL 1.00-4.8 [facility] Lymphocytes/100 WBC Auto (Bl d)Ordered By: Hong Mcintosh on 12-10-2021 Lymphocytes/100 WBC (Bld) 21.7 % . [facility] MCH Auto (RBC) [Entitic mass ]Ordered By: Hong Mcintosh on 12-10-2021 MCH (RBC) [Entitic mass] 34.3 pg 24.7-34.3 [facility] MCHC Auto (RBC) [Mass/Vol]Or dered By: Hong Mcintosh on 12-10-2021 MCHC (RBC) [Mass/Vol] 33.0 g/dL 32.0-35.0 [facility] MCV Auto (RBC) [Entitic vol] Ordered By: Hong Mcintosh on 12-10-2021 MCV (RBC) [Entitic vol] 103.8 fL 80-100 [facility] Monocytes Auto (Bld) [#/Vol] Ordered By: Hong Mcintosh on 12-10-2021 Monocytes (Bld) [#/Vol] 0.7 10*3/uL 0.0-0.8 [facility] Monocytes/100 WBC Auto (Bld) Ordered By: Hong Mcintosh on 12-10-2021 Monocytes/100 WBC (Bld) 11.2 % . [facility] Neutrophils Auto (Bld) [#/Vo l]Ordered By: Hong Mcintosh on 12-10-2021 Neutrophils (Bld) [#/Vol] 3.9 10*3/uL 1.8-7.7 [facility] Neutrophils/100 WBC Auto (Bl d)Ordered By: Hong Mcintosh on 12-10-2021 Neutrophils/100 WBC (Bld) 62.7 % . [facility] No Panel InformationOrdered By: Hong Mcintosh on 12-10-2021 Estimated GFR () 34 mL/Min [facility] Comment on above: GFR estimated refere nce range: According to KDOQI guidelines, <60 ml/min/1.73m2 is sufficient to diagnose a patient with chronic kidney disease. Pharmacy Creatinine Clearance (Chem 36.70 [facility] Platelet mean volume Auto (B ld) [Entitic vol]Ordered By: Hong Mcintosh on 12-10-2021 Platelet mean volume (Bld) [Entitic vol] 6.7 fL 6.3-10.7 [facility] Platelets Auto (Bld) [#/Vol] Ordered By: Hong Mcintosh on 12-10-2021 Platelets (Bld) [#/Vol] 356 10*3/uL 150-450 [facility] RBC Auto (Bld) [#/Vol]Ordere d By: Hong Mcintosh on 12-10-2021 RBC (Bld) [#/Vol] 2.20 10*6/uL 3.60-5.00 [facility] Serum or plasma anion gap de terminationOrdered By: Hong Mcintosh on 12-10-2021 Anion gap [Moles/Vol] TNP [facility] Comment on above: Test not performed Serum or plasma calcium sigifredo urement (mass/volume)Ordered By: Hong Mcintosh on 12-10-2021 Calcium [Mass/Vol] 9.0 mg/dL 8.2-10.2 [facility] Serum or plasma chloride matti surement (moles/volume)Ordered By: Hong Mcintosh on 12-10-2021 Chloride [Moles/Vol] 104 mmol/L 95-114 [facility] Serum or plasma glucose sigifredo urement (mass/volume)Ordered By: Hong Mcintosh on 12-10-2021 Glucose [Mass/Vol] 137 mg/dL 70-100 [facility] Comment on above: ADA recommended refe rence range Random Glucose Reference Range is dependent on time and content of last meal. Glucose of more than 200 mg/dL in a nonstressed, ambulatory subject supports the diagnosis of Diabetes Mellitus. Serum or plasma potassium me asurement (moles/volume)Ordered By: Hong Mcintosh on 12-10-2021 Potassium [Moles/Vol] 4.7 mmol/L 3.5-5.1 [facility] Serum or plasma sodium measu rement (moles/volume)Ordered By: Hong Mcintosh on 12-10-2021 Sodium [Moles/Vol] 131 mmol/L 136-146 [facility] Serum or plasma total carbon dioxide measurement (moles/volume)Ordered By: Hong Mcintosh on 12-10-2021 CO2 [Moles/Vol] 21.1 mmol/L 22.0-30.0 [facility] Serum or plasma urea nitroge n measurement (mass/volume)Ordered By: Hong Mcintosh on 12-10-2021 Urea nitrogen [Mass/Vol] 21 mg/dL 9-23 [facility] Serum DNA double strand anti body assay (units/volume)Ordered By: William Esposito on 12-09-2021 DNA double strand Ab Qn (S) [IU]/mL 0-9 [facility] Comment on above: Negative <5 Equivocal 5 - 9 Positive >9 Performed at: [facility] [id number] Data Integrity Consultant: Sanford Mehta PhD, Phone: [phone] Albumin [Mass/volume] in Ser um or PlasmaOrdered By: William Esposito on 12-07-2021 Albumin [Mass/Vol] 2.6 g/dL 2.9-4.4 [facility] Albumin/Protein.total in 24 hour Urine by ElectrophoresisOrdered By: William Esposito on 12-07-2021 Albumin Elph (24H U) [Mass fraction] 69.2 % . [facility] Creatinine [Mass/volume] in UrineOrdered By: William Esposito on 12-07-2021 Creatinine (U) [Mass/Vol] 153.0 mg/dL [facility] Comment on above: No reference range e stablished Gamma globulin/Protein.total in 24 hour Urine by ElectrophoresisOrdered By: William Esposito on 12-07-2021 Gamma globulin Elph (24H U) [Mass fraction] 8.2 % . [facility] IgA [Mass/volume] in Serum o r PlasmaOrdered By: William Esposito on 12-07-2021 IgA [Mass/Vol] 357 mg/dL 87-352 [facility] IgG [Mass/volume] in Serum o r PlasmaOrdered By: William Vaibhav on 12-07-2021 IgG [Mass/Vol] 794 mg/dL 586-1602 [facility] IgM [Mass/volume] in Serum o r PlasmaOrdered By: William Vaibhav on 12-07-2021 IgM [Mass/Vol] 109 mg/dL 26-217 [facility] Comment on above: Performed at: [facility] [address] [id number] Data Integrity Consultant: Sanford Mehta PhD, Phone: [phone] Immunofixation for UrineOrde red By: William Esposito on 12-07-2021 Interpretation Immunofixation (U) [Interp] Comment: . [facility] Comment on above: Presence of monoclon al protein is unclear at this time. Suggest repeat in 3 to 6 months if clinically indicated. Performed at: [facility] [address] [id number] Data Integrity Consultant: Sanford Mehta PhD, Phone: [phone] Immunoglobulin light chains. kappa.free [Mass/volume] in SerumOrdered By: William Vaibhav on 12-07-2021 Immunoglobulin light chains.kappa.free (S) [Mass/Vol] 81.9 mg/L 3.3-19.4 [facility] Immunoglobulin light chains. kappa.free/Immunoglobulin light chains.lambda.free [MassOrdered By: William Vaibhav on 12-07-2021 Immunoglobulin light chains.kappa.free/Immuno globulin light chains.lambda.free (S) [Mass ratio] 1.31 0.26-1.65 [facility] Comment on above: Performed at: [facility] [address] [id number] Data Integrity Consultant: Sanford Mehta PhD, Phone: [phone] Immunoglobulin light chains. lambda.free [Mass/volume] in Serum or PlasmaOrdered By: William Vaibhav on 12-07-2021 Immunoglobulin light chains.lambda.free [Mass/Vol] 62.3 mg/L 5.7-26.3 [facility] No Panel InformationOrdered By: William Esposito on 12-07-2021 Urine Random Prot Electrophor Note See comment . [facility] Comment on above: Protein electrophore sis scan will follow via computer, mail, or plasma center technician delivery. Performed at: [facility] [id number] Data Integrity Consultant: Sanford Mehta PhD, Phone: [phone] Protein Electrophoresis M-Alexei Not observed g/dL Not Observed [facility] Protein Electrophoresis Note See comment . [facility] Comment on above: Protein electrophore sis scan will follow via computer, mail, or plasma center technician delivery. Performed at: [facility] [id number] Data Integrity Consultant: Sanford Mehta PhD, Phone: [phone] Serum Immunofixation See comment . [facility] Comment on above: No monoclonality det ected. Protein [Mass/volume] in Ser um or PlasmaOrdered By: William Esposito on 12-07-2021 Protein [Mass/Vol] 5.2 g/dL 6.0-8.5 [facility] Protein [Mass/volume] in Uri neOrdered By: William Esposito on 12-07-2021 Protein (U) [Mass/Vol] 51.3 mg/dL Not Estab. [facility] Protein.monoclonal/Protein.t otal in 24 hour Urine by ElectrophoresisOrdered By: William Esposito on 12-07-2021 Protein.monoclonal Elph (24H U) [Mass fraction] Not observed % Not Observed [facility] Serum globulin measurement ( mass/volume)Ordered By: William Dahlr on 12-07-2021 Globulin (S) [Mass/Vol] 2.6 g/dL 2.2-3.9 [facility] Serum or plasma albumin/glob ulin mass ratioOrdered By: William Vaibhav on 12-07-2021 Albumin/Globulin [Mass ratio] 1.0 {ratio} 0.7-1.7 [facility] Serum or plasma alpha 1 glob ulin measurement by electrophoresis (mass/volume)Ordered By: William Vaibhav on 12-07-2021 Alpha 1 globulin Elph [Mass/Vol] 0.3 g/dL 0.0-0.4 [facility] Serum or plasma alpha 2 glob ulin measurement by electrophoresis (mass/volume)Ordered By: William Vaibhav on 12-07-2021 Alpha 2 globulin Elph [Mass/Vol] 0.7 g/dL 0.4-1.0 [facility] Serum or plasma beta globuli n measurement by electrophoresis (mass/volume)Ordered By: William Vaibhav on 12-07-2021 Beta globulin Elph [Mass/Vol] 0.7 g/dL 0.7-1.3 [facility] Serum or plasma gamma globul in measurement by electrophoresis (mass/volume)Ordered By: William Vaibhav on 12-07-2021 Gamma globulin Elph [Mass/Vol] 0.9 g/dL 0.4-1.8 [facility] Troponin I.cardiac [Mass/vol ume] in Serum or Plasma by High sensitivity methodOrdered By: Hong Mcintosh on 12-07-2021 Troponin I.cardiac High sensitivity method [Mass/Vol] 7 pg/mL 0-15 [facility] Urine alpha 1 globulin/total protein by electrophoresisOrdered By: William Vaibhav on 12-07-2021 Alpha 1 globulin Elph (U) [Mass fraction] 3.1 % . [facility] Urine alpha 2 globulin/total protein ratio by electrophoresisOrdered By: William Vaibhav on 12-07-2021 Alpha 2 globulin Elph (U) [Mass fraction] 6.0 % . [facility] Urine beta globulin measurem ent by electrophoresis (mass/volume)Ordered By: William Vaibhav on 12-07-2021 Beta globulin Elph (U) [Mass/Vol] 13.5 % . [facility] Urine culture routineOrdered By: Hong Mcintosh on 12-07-2021 Bacteria identified Cx Nom (U) Klebsiella oxytoca [facility] Urine protein/creatinine rat ioOrdered By: William Vaibhav on 12-07-2021 Protein/Creatinine (U) [Ratio] 359 mg/g{Cre} 0-200 [facility] Albumin [Mass/volume] in Ser um or PlasmaOrdered By: William Vaibhav on 12-06-2021 Albumin [Mass/Vol] 3.0 g/dL 3.2-5.5 [facility] CULTURE URINEon 12-06-2021 CULTURE URINE [...] Trimethoprim/Sulfamethoxaz ole <=20 S F Normal [facility] Comment on above: Performed By: #### H STROPN #### [facility] [address] [address] Dr. Debra Blake Glucose Glucometer (BldC) [M ass/Vol]Ordered By: Hong Mcintosh on 12-06-2021 Glucose [Mass/Vol] 145 mg/dL [facility] Comment on above: Random Glucose Refer ence Range is dependent on time and content of last meal. Glucose of more than 200 mg/dL in a nonstressed, ambulatory subject supports the diagnosis of Diabetes Mellitus. No Panel InformationOrdered By: Hong Mcintosh on 12-06-2021 Anti-Nuclear Antibody Comment 2 See comment . [facility] Comment on above: For more information about [...] titers Nucleosomes, Histones Drug-induced SLE Speckled Sm, CAMERA TECHNICIAN, SCL-70, SLE,MCTD,PSS (diffuse form), SS-A/SS-B Sjogrens Nucleolar SCL-70, PM-1/SCL High titers Scleroderma, PM/DM Centromere Centromere PSS (limited form) w/Crest syndrome variable Nuclear Dot [id number] Primary Biliary Cirrhosis Nuclear GP210, Primary Biliary Cirrhosis Membrane chun A,B,C Performed at: - [facility] [id number] Data Integrity Consultant: Sanford Mehta PhD, Phone: [phone] OSMOLALITY URINEon 2 Osmolality, Urine 180 mOsmol/kg Normal [facility] Comment on above: Result Comment: 24 h r : 300 - 900 Random: 50 - 1400 After 12hr fluid restriction: >850 Performed By: #### H STROPN #### [facility] [address] [address] [address] Debra Blake Serum nuclear antibody titer Ordered By: Hong Mcintosh on 12-06-2021 Nuclear Ab (S) [Titer] Positive . [facility] Comment on above: Negative <1:80 Borderline 1:80 Positive >1:80 Serum or plasma cyclic adeno sine monophosphate measurement (moles/volume)Ordered By: Hong Mcintosh on 12-06-2021 Adenosine monophosphate.cyclic [Moles/Vol] 10 units 0-19 [facility] Comment on above: Negative <20 Weak positive 20 - 39 Moderate positive 40 - 59 Strong positive >59 Performed at: - [facility] [id number] Data Integrity Consultant: Meli Bishop MD, Phone: [phone] Serum or plasma ethanol sigifredo urement (mass/volume)Ordered By: Rehan Isidro on 12-06-2021 Ethanol [Mass/Vol] mg/dL [facility] Ethanol [Mass/Vol] TNP [facility] Comment on above: Test not performed Serum speckled pattern antin uclear antibody (MATY) titerOrdered By: Hong Mcintosh on 12-06-2021 Speckled nuclear Ab pattern (S) [Titer] 1:80 . [facility] Comment on above: ICAP nomenclature: A C-2,4,5,29 Amphetamine Screen Ql (U)Ord ered By: Hong Mcintosh on 12-05-2021 Amphetamines Ql (U) Negative Negative [facility] Automated erythrocytes count in urine sediment (number/area)Ordered By: Hong Mcintosh on 12-05-2021 RBC Auto (Urine sed) [#/Area] 1-2 [HPF] 0-4 [facility] Automated leukocytes count i n urine sediment (number/area)Ordered By: Hong Mcintosh on 12-05-2021 WBC Auto (Urine sed) [#/Area] Innumerable [HPF] 0-4 [facility] Barbiturates [Presence] in U rineOrdered By: Hong Mcintosh on 12-05-2021 Barbiturates Ql (U) Negative Negative [facility] Benzodiazepines [Presence] i n UrineOrdered By: Hong Mcintosh on 12-05-2021 Benzodiazepines Ql (U) Positive Negative Fi [facility] Bilirubin Test strip Ql (U)O rdered By: Hong Mcintosh on 12-05-2021 Bilirubin Ql (U) Negative Negative [facility] biopsyOrdered By: Patricia Mcintosh on 12-05-2021 Transferrin [Mass/Vol] 175 mg/dL 180-380 [facility] Cannabinoids [Presence] in U rine by Screen methodOrdered By: Hong Mcintosh on 12-05-2021 Cannabinoids Screen Ql (U) Negative Negative [facility] Comment on above: These are unconfirme d results and should not be used for legal purposes. Drug Cut-Off Concentration: AMPH 1000 ng/mL GAYLE 200 ng/mL ISAEL 200 ng/mL COCM 300 ng/mL OP 300 ng/mL PCP 25 ng/mL THC 20 ng/mL Color Auto (U)Ordered By: Nikos Mcintosh on 12-05-2021 Color (U) Yellow Yellow [facility] Ferritin [Mass/volume] in Se rum or PlasmaOrdered By: Hong Mcintosh on 12-05-2021 Ferritin [Mass/Vol] 80.8 ng/mL 11-306.8 [facility] Iron [Mass/volume] in Serum or PlasmaOrdered By: Hong Mcintosh on 12-05-2021 Iron [Mass/Vol] 22 ug/dL 40-150 [facility] Iron binding capacity [Mass/ volume] in Serum or PlasmaOrdered By: Hong Mcintosh on 12-05-2021 Iron binding capacity [Mass/Vol] 245 ug/dL 255-450 [facility] Ketones Auto test strip (U) [Mass/Vol]Ordered By: Hong Mcintosh on 12-05-2021 Ketones (U) [Mass/Vol] Negative [facility] Ordered By: Hong Mcintosh on 12-05-2021 Opiates Ql (U) Negative Negative [facility] - UrinalysisOrder ed By: Hong Mcintosh on 12-05-2021 Hyaline casts LM Ql (Urine sed) 0-8 [LPF] 0-8 [facility] Lactate dehydrogenase measur ement (enzymatic activity/volume)Ordered By: Hong Mcintosh on 12-05-2021 LDH (Unsp spec) [Catalytic activity/Vol] 135 U/L 45-190 [facility] Nitrite Test strip Ql (U)Ord ered By: Hong Mcintosh on 12-05-2021 Nitrite Ql (U) Negative Negative [facility] No Panel InformationOrdered By: Hong Mcintosh on 12-05-2021 25-Hydroxy Vitamin D Total 21.8 ng/mL 30-100 [facility] Comment on above: VITAMIN D STATUS 25( [place])VITAMIN D RANGE (ng/mL) Deficient <20 Insufficient 20 to <30 Sufficient 30 to 100 Reference: Maggie MF,Jose NC, Gilberto VARGAS, et al. Evaluation,treatment, and prevention of vitamin D deficiency; an Endocrine Society clinical practice guideline. JCEM. 2010; 96(7):1911-30. Vitamin C level <0.1 mg/dL 0.4-2.0 [facility] Comment on above: This test was devyakovo ped and its performance characteristics determined by [facility]. It has not been cleared or approved by the Food and Drug Administration. Vitamin C deficiency is generally defined as plasma or serum concentrations less than 0.2 mg/dL and levels between 0.2 and 0.4 mg/dL are considered low. Performed at: [facility] - [facility] [address] [id number] Data Integrity Consultant: Meli Bishop MD, Phone: [phone] Phencyclidine Screen Ql (U)O rdered By: Hong Mcintosh on 12-05-2021 Phencyclidine Ql (U) Negative Negative [facility] Protein Auto test strip (U) [Mass/Vol]Ordered By: Hong Mcintosh on 12-05-2021 Protein (U) [Mass/Vol] 30 mg/dL Negative Fi [facility] Serum or plasma thyroxine (T 4) measurement (mass/volume)Ordered By: Hong Mcintosh on 12-05-2021 T4 [Mass/Vol] 7.19 ug/dL 5.39-11.82 [facility] Specific gravity Auto test s trip (U) [Rel density]Ordered By: Hong Mcintosh on 12-05-2021 Specific gravity (U) [Rel density] 1.013 1.001-1.03 0 [facility] Squamous epithelial cells de tection in urine sediment by light microscopyOrdered By: Hong Mcintosh on 12-05-2021 Epithelial cells.squamous LM Ql (Urine sed) 5-9 [HPF] 0-2 [facility] Thyroxine (T4) free [Mass/vo lume] in Serum or PlasmaOrdered By: Hong Mcintosh on 12-05-2021 Free T4 [Mass/Vol] 1.00 ng/dL 0.61-1.12 [facility] Urine bacteria detection by automated methodOrdered By: Hong Mcintosh on 12-05-2021 Bacteria Auto Ql (U) 4+ None Seen [facility] Urine clarity by refractomet ry automatedOrdered By: Hong Mcintosh on 12-05-2021 Clarity Refractometry automated (U) Cloudy Clear [facility] Urine cocaine detectionOrder ed By: Hong Mcintosh on 12-05-2021 Cocaine Ql (U) Negative Negative [facility] Urine glucose measurement by automated test strip (mass/volume)Ordered By: Hong Mcintosh on 12-05-2021 Glucose Auto test strip (U) [Mass/Vol] Normal mg/dL Normal [facility] Urine hemoglobin detection b y automated test stripOrdered By: Hong Mcintosh on 12-05-2021 Hemoglobin Auto test strip Ql (U) Negative Negative [facility] Urine leukocyte esterase det ection by automated test stripOrdered By: Hong Mcintosh on 12-05-2021 Leukocyte esterase Auto test strip Ql (U) 4+ Negative [facility] Urobilinogen Auto test strip (U) [Mass/Vol]Ordered By: Hong Mcintosh on 12-05-2021 Urobilinogen (U) [Mass/Vol] Normal mg/dL Normal [facility] pH Auto test strip (U)Ordere d By: Hong Mcintosh on 12-05-2021 pH (U) 5.5 [pH] 5.0-9.0 [facility] Activated partial thrombopla stin time (aPTT) in platelet poor plasma by coagulation aOrdered By: Hong Mcintosh on 12-04-2021 aPTT Coag (PPP) [Time] 29.9 s 25.1-36.5 [facility] CBC AUTO DIFFon 12-04-2021 BASO # 0.0 103/ul Normal 0.0-0.1 [facility] Comment on above: Performed By: #### H KINGSTONPN, CMP #### [facility] [address] [address] Dr. Debra Blake Basophils/100 WBC (Bld) 0.4 % Normal 0.2-2.0 [facility] Comment on above: Performed By: #### H KINGSTONPN, CMP #### [facility] [address] [address] [address] Debra Blake EO # 0.1 103/ul Normal 0.0-0.7 [facility] Comment on above: Performed By: #### H KINGSTONPN, CMP #### [facility] [address] [place] [place] [address] Dr. Debra Blake Eosinophils/100 WBC (Bld) 1.3 % Normal 0.9-7.0 [facility] Comment on above: Performed By: #### H STROJOCELIN, CMP #### [facility] [address] [place] [place] [address] Dr. Debra Blake Erythrocyte distribution width (RBC) [Ratio] 14.6 % Normal 11.0-15.0 [facility] Comment on above: Performed By: #### H STROPN, CMP #### [facility] [address] [place] [address] Dr. Debra Blake Hematocrit (Bld) [Volume fraction] 24.6 % Critically low 36.0-48.0 [facility] Comment on above: Performed By: #### H STROPN, CMP #### [facility] [address] [place] [address] Dr. Debra Blake Hemoglobin (Bld) [Mass/Vol] 8.6 g/dL Critically low 12.0-16.0 [facility] Comment on above: Performed By: #### H STROPN, CMP #### [facility] [address] [place] [place] [address] Dr. Debra Blake IG # 0.04 10e3/ul Critically high 0.00-0.03 [facility] Comment on above: Performed By: #### H STROPN, CMP #### [facility] [address] [place] [place] [address] Dr. Debra Blake IG % 0.6 % Critically high 0.0-0.5 [facility] Comment on above: Performed By: #### H STROPN, CMP #### [facility] [address] [place] [place] [address] Dr. Debra Blake LYMPH # 1.3 103/ul Normal 1.2-3.8 [facility] Comment on above: Performed By: #### H STROPN, CMP #### [facility] [address] [place] [place] [address] Dr. Debra Blake Lymphocytes/100 WBC (Bld) 19.7 % Critically low 20.5-60.0 [facility] Comment on above: Performed By: #### H STROPN, CMP #### [facility] [address] [place] [place] [address] Dr. Debra Blake MANUAL DIFF REQ NO Normal [facility] Comment on above: Performed By: #### H STROPN, CMP #### [facility] [address] [place] [place] [address] Dr. Debra Blake MCH (RBC) [Entitic mass] 34.3 pg Critically high 26.7-3 4.0 [facility] Comment on above: Performed By: #### H STROPN, CMP #### [facility] [address] [place] [place] [address] Dr. Debra Blake MCHC (RBC) [Mass/Vol] 35.0 g/dL Normal 29.9-35.2 [facility] Comment on above: Performed By: #### H STROPN, CMP #### [facility] [address] [place] [place] [address] Dr. Debra Blake MCV (RBC) [Entitic vol] 98.0 fL Normal 81.0-99.0 [facility] Comment on above: Performed By: #### H STROPN, CMP #### [facility] [address] [place] [place] [address] Dr. Debra Blake MONO # 0.9 103/ul Critically high 0.3-0.8 [facility] Comment on above: Performed By: #### H STROPN, CMP #### [facility] [address] [place] [place] [address] Dr. Debra Blake Monocytes/100 WBC (Bld) 12.7 % Critically high 1.7-12. 0 [facility] Comment on above: Performed By: #### H STROPN, CMP #### [facility] [address] [place] [place] [address] Dr. Debra Blake NEUT # 4.4 103/ul Normal 1.4-6.5 [facility] Comment on above: Performed By: #### H STROPN, CMP #### [facility] [address] [place] [place] [address] Dr. Debra Blake Neutrophils/100 WBC (Bld) 65.3 % Normal 43.0-75.0 [facility] Comment on above: Performed By: #### H STROPN, CMP #### [facility] [address] [address] [address] Debra Blake Platelet mean volume (Bld) [Entitic vol] 9.0 fL Critically low 9.5-13.5 [facility] Comment on above: Performed By: #### H STROPN, CMP #### [facility] [address] [address] [address] Debra Blake PLT 142 103/ul Critically low 150-450 [facility] Comment on above: Performed By: #### H STROPN, CMP #### [facility] [address] [address] [address] Debra Blake RBC 2.51 106/ul Critically low 4.20-5.40 [facility] Comment on above: Performed By: #### H STROPN, CMP #### [facility] [address] [address] [address] Debra Blake WBC 6.8 103/ul Normal 4.0-11.0 [facility] Comment on above: Performed By: #### H STROPN, CMP #### [facility] [address] [address] [address] Debra Blake BASO # 0.0 103/ul Normal 0.0-0.1 [facility] Comment on above: Performed By: #### C BC #### [facility] [address] [address] [address] Debra Blake Basophils/100 WBC (Bld) 0.5 % Normal 0.2-2.0 [facility] Comment on above: Performed By: #### C BC #### [facility] [address] [address] [address] Debra Blake EO # 0.1 103/ul Normal 0.0-0.7 [facility] Comment on above: Performed By: #### C BC #### [facility] [address] [address] [address] Debra Blake Eosinophils/100 WBC (Bld) 0.9 % Normal 0.9-7.0 [facility] Comment on above: Performed By: #### C BC #### [facility] [address] [place] [place] [address] Dr. Debra Blake Erythrocyte distribution width (RBC) [Ratio] 14.6 % Normal 11.0-15.0 [facility] Comment on above: Performed By: #### C BC #### [facility] [address] [place] [place] [address] Dr. Debra Blake Hematocrit (Bld) [Volume fraction] 26.2 % Critically low 36.0-48.0 [facility] Comment on above: Performed By: #### C BC #### [facility] [address] [place] [place] [address] Dr. Debra Blake Hemoglobin (Bld) [Mass/Vol] 9.2 g/dL Critically low 12.0-16.0 [facility] Comment on above: Performed By: #### C BC #### [facility] [address] [place] [place] [address] Dr. Debra Blake IG # 0.06 10e3/ul Critically high 0.00-0.03 [facility] Comment on above: Performed By: #### C BC #### [facility] [address] [place] [place] [address] Dr. Debra Blake IG % 0.7 % Critically high 0.0-0.5 [facility] Comment on above: Performed By: #### C BC #### [facility] [address] [place] [place] [address] Dr. Debra Blake LYMPH # 1.3 103/ul Normal 1.2-3.8 [facility] Comment on above: Performed By: #### C BC #### [facility] [address] [place] [place] [address] Dr. Debra Blake Lymphocytes/100 WBC (Bld) 15.7 % Critically low 20.5-60.0 [facility] Comment on above: Performed By: #### C BC #### [facility] [address] [place] [place] [address] Dr. Debra Blake MANUAL DIFF REQ NO Normal [facility] Comment on above: Performed By: #### C BC #### [facility] [address] [place] [place] [address] Dr. Debra Blake MCH (RBC) [Entitic mass] 34.2 pg Critically high 26.7-3 4.0 [facility] Comment on above: Performed By: #### C BC #### [facility] [address] [place] [place] [address] Dr. Debra Blake MCHC (RBC) [Mass/Vol] 35.1 g/dL Normal 29.9-35.2 [facility] Comment on above: Performed By: #### C BC #### [facility] [address] [place] [place] [address] Dr. Debra Blake MCV (RBC) [Entitic vol] 97.4 fL Normal 81.0-99.0 [facility] Comment on above: Performed By: #### C BC #### [facility] [address] [place] [place] [address] Dr. Debra Blake MONO # 1.1 103/ul Critically high 0.3-0.8 [facility] Comment on above: Performed By: #### C BC #### [facility] [address] [place] [place] [address] Dr. Debra Blake Monocytes/100 WBC (Bld) 13.3 % Critically high 1.7-12. 0 [facility] Comment on above: Performed By: #### C BC #### [facility] [address] [place] [place] [address] Dr. Debra Blake NEUT # 5.6 103/ul Normal 1.4-6.5 [facility] Comment on above: Performed By: #### C BC #### [facility] [address] [place] [place] [address] Dr. Debra Blake Neutrophils/100 WBC (Bld) 68.9 % Normal 43.0-75.0 [facility] Comment on above: Performed By: #### C BC #### [facility] [address] [place] [place] [address] Dr. Debra Blake Platelet mean volume (Bld) [Entitic vol] 9.2 fL Critically low 9.5-13.5 [facility] Comment on above: Performed By: #### C BC #### [facility] [address], [place] [address] Dr. Debra Blake PLT 179 103/ul Normal 150-450 [facility] Comment on above: Performed By: #### C BC #### [facility] [address], [place] [address] Dr. Debra Blake RBC 2.69 106/ul Critically low 4.20-5.40 [facility] Comment on above: Performed By: #### C BC #### [facility] [address], [place] [address] Dr. Debra Blake WBC 8.1 103/ul Normal 4.0-11.0 [facility] Comment on above: Performed By: #### C BC #### [facility] [address], [place] [address] Dr. Debra Blake Creatine kinase [Enzymatic a ctivity/volume] in Serum or PlasmaOrdered By: Hong Mcintosh on 12-04-2021 CK [Catalytic activity/Vol] 140 U/L 22-269 [facility] Direct bilirubin measurement Ordered By: Hong Mcintosh on 12-04-2021 Bilirubin.direct [Mass/Vol] 0.2 mg/dL 0.0-0.4 [facility] Folate [Mass/volume] in Seru m or PlasmaOrdered By: Hong Mcintosh on 12-04-2021 Folate [Mass/Vol] 5.1 ng/mL >5.9 [facility] Comment on above: Folate reference ran ge: >5.9 ng/ml The WHO technical consultation on folate and vitamin b12 deficiencies has determined that folate concentrations less than 4 ng/ml are considered deficient. Globulin Calc (S) [Mass/Vol] Ordered By: Hong Mcintosh on 12-04-2021 Globulin (S) [Mass/Vol] 3.2 g/dL [facility] Glucose mean value [Mass/vol ume] in Blood Estimated from glycated hemoglobinOrdered By: Hong Mcintosh on 12-04-2021 Average glucose Estimated from glycated hemoglobin (Bld) [Mass/Vol] 97 mg/dL [facility] Hemoglobin A1c percentageOrd ered By: Hong Mcintosh on 12-04-2021 HbA1c (Bld) [Mass fraction] 5.0 % 4.3-5.6 [facility] Comment on above: Increased risk for d iabetes: 5.7 - 6.4 diabetes: >6.4 glycemic control for adults with diabetes: <7.0 Laboratory - Chemistry and C hemistry - challengeOrdered By: Hong Mcintosh on 12-04-2021 Cobalamin (Vitamin B12) [Mass/Vol] 520 pg/mL 180-914 [facility] - CoagulationOrde red By: Hong Mcintosh on 12-04-2021 PT Coag (PPP) [Time] 12.2 s 9.0-12.9 [facility] MAGNESIUMon 12-04-2021 Magnesium [Mass/Vol] 1.1 mg/dL Critically low 1.8-2.4 [facility] Comment on above: Performed By: #### H STROPN #### [facility] [address] [place] [place] [address] Dr. Debra Blake Magnesium [Mass/Vol] 0.6 mg/dL Critically low 1.8-2.4 [facility] Comment on above: Performed By: #### H STROPN, CMP #### [facility] [address] [place] [place] [address] Dr. Debra Blake PROF 14(COMP METB)on 022 Albumin [Mass/Vol] 2.7 g/dL Critically low 3.4-5.0 [facility] Comment on above: Performed By: #### H STROPN #### [facility] [address] [address] [address] Debra Blake Albumin/Globulin [Mass ratio] 0.8 {ratio} Normal [facility] Comment on above: Performed By: #### H STROPN #### [facility] [address] [address] [address] Debra Blake ALP [Catalytic activity/Vol] 57 U/L Normal 46-116 [facility] Comment on above: Performed By: #### H STROPN #### [facility] [address] [address] [address] Debra Blake ALT [Catalytic activity/Vol] 7 U/L Critically low 14-59 [facility] Comment on above: Performed By: #### H STROPN #### [facility] [address] [address] [address] Debra Blake Anion gap [Moles/Vol] 17.3 mmol/L Normal [facility] Comment on above: Performed By: #### H STROPN #### [facility] [address] [address] [address] Debra Blake AST [Catalytic activity/Vol] 14 U/L Critically low 15-37 [facility] Comment on above: Performed By: #### H STROPN #### [facility] [address] [address] [address] Debra Blake Bilirubin [Mass/Vol] 0.6 mg/dL Normal 0.2-1.0 [facility] Comment on above: Performed By: #### H STROPN #### [facility] [address] [address] [address] Debra Blake Calcium [Mass/Vol] 5.8 mg/dL Critically low 8.5-10.1 [facility] Comment on above: Result Comment: Test Repeated. Critical Value Verified Performed By: #### H STROPN #### [facility] [address] [address] [address] Debra Blake Chloride [Moles/Vol] 94 mmol/L Critically low 98-107 [facility] Comment on above: Performed By: #### H STROPN #### [facility] [address] [address] [address] Debra Blake CO2 [Moles/Vol] 17.7 mmol/L Critically low 21.0-32.0 [facility] Comment on above: Performed By: #### H STROPN #### [facility] [address] [address] [address] Debra Blake Creatinine [Mass/Vol] 2.48 mg/dL Critically high 0.55-1.02 [facility] Comment on above: Performed By: #### H STROPN #### [facility] [address] [address] [address] Debra Blake EGFR-AF TRINIDADIAN 24 mL/min/1.73m2 Critically low >=60 [facility] Comment on above: Performed By: #### H STROPN #### [facility] [address] [address] [address] Debra Blake EGFR-NON AF TRINIDADIAN 20 mL/min/1.73m2 Critically low >=60 [facility] Comment on above: Performed By: #### H STROPN #### [facility] [address] [address] [address] Debra Blake Globulin (S) [Mass/Vol] 3.2 g/dL Normal [facility] Comment on above: Performed By: #### H STROPN #### [facility] [address] [address] [address] Debra Blake Glucose [Mass/Vol] 108 mg/dL Critically high 74-106 [facility] Comment on above: Performed By: #### H STROPN #### [facility] [address] [address] [address] Debra Blake Potassium [Moles/Vol] 3.0 mmol/L Critically low 3.5-5.1 [facility] Comment on above: Performed By: #### H STROPN #### [facility] [address] [address] [address] Debar Blake Protein [Mass/Vol] 5.9 g/dL Critically low 6.4-8.2 [facility] Comment on above: Performed By: #### H STROPN #### [facility] [address] [address] [address] Debra Blake Sodium [Moles/Vol] 126 mmol/L Critically low 136-145 [facility] Comment on above: Performed By: #### H STROPN #### [facility] [address] [address] [address] Debra Blake Urea nitrogen [Mass/Vol] 29.0 mg/dL Critically high 7.0-18 .0 [facility] Comment on above: Performed By: #### H STROPN #### [facility] [address] [address] [address] Debra Blake Urea nitrogen/Creatinine [Mass ratio] 11.7 mg/mg Normal [facility] Comment on above: Performed By: #### H STROPN #### [facility] [address] [address] [address] Debra Blake Albumin [Mass/Vol] 3.1 g/dL Critically low 3.4-5.0 [facility] Comment on above: Performed By: #### H STROPN, CMP #### [facility] [address] [address] [address] Debra Blake Albumin/Globulin [Mass ratio] 0.8 {ratio} Normal [facility] Comment on above: Performed By: #### H STROPN, CMP #### [facility] [address] [address] [address] Debra Blake ALP [Catalytic activity/Vol] 65 U/L Normal 46-116 [facility] Comment on above: Performed By: #### H STROPN, CMP #### [facility] [address] [address] [address] Debra Blake ALT [Catalytic activity/Vol] 9 U/L Critically low 14-59 [facility] Comment on above: Performed By: #### H STROPN, CMP #### [facility] [address] [address] [address] Debra Blake Anion gap [Moles/Vol] 17.3 mmol/L Normal [facility] Comment on above: Performed By: #### H STROPN, CMP #### [facility] [address] [address] [address] Debra Blake AST [Catalytic activity/Vol] 17 U/L Normal 15-37 [facility] Comment on above: Performed By: #### H STROPN, CMP #### [facility] [address] [address] [address] Debra Blake Bilirubin [Mass/Vol] 0.8 mg/dL Normal 0.2-1.0 [facility] Comment on above: Performed By: #### H STROPN, CMP #### [facility] [address] [place] [address] Dr. Debra Blake Calcium [Mass/Vol] 5.8 mg/dL Critically low 8.5-10.1 [facility] Comment on above: Result Comment: Test Repeated. Critical Value Verified Performed By: #### H STROPN, CMP #### [facility] [address] [place] [address] Dr. Debra Blake Chloride [Moles/Vol] 91 mmol/L Critically low 98-107 [facility] Comment on above: Performed By: #### H STROPN, CMP #### [facility] [address] [place] [address] Dr. Debra Blake CO2 [Moles/Vol] 19.6 mmol/L Critically low 21.0-32.0 [facility] Comment on above: Performed By: #### H STROPN, CMP #### [facility] [address] [place] [address] Dr. Debra Blake Creatinine [Mass/Vol] 2.66 mg/dL Critically high 0.55-1.02 [facility] Comment on above: Performed By: #### H STROPN, CMP #### [facility] [address] [place] [address] Dr. Debra Blake EGFR-AF TRINIDADIAN 22 mL/min/1.73m2 Critically low >=60 [facility] Comment on above: Performed By: #### H STROPN, CMP #### [facility] [address] [place] [address] Dr. Debra Blake EGFR-NON AF TRINIDADIAN 18 mL/min/1.73m2 Critically low >=60 [facility] Comment on above: Performed By: #### H STROPN, CMP #### [facility] [address] [place] [place] [address] Dr. Debra Blake Globulin (S) [Mass/Vol] 3.7 g/dL Normal [facility] Comment on above: Performed By: #### H STROPN, CMP #### [facility] [address] [place] [address] Dr. Debra Blake Glucose [Mass/Vol] 106 mg/dL Normal 74-106 [facility] Comment on above: Performed By: #### H GARY, CMP #### [facility] [address] [address] [address] Debra Blake Potassium [Moles/Vol] 2.8 mmol/L Critically low 3.5-5.1 [facility] Comment on above: Result Comment: Test Repeated. Critical Value Verified Performed By: #### H GARY, CMP #### [facility] [address] [address] [address] Debra Blake Protein [Mass/Vol] 6.8 g/dL Normal 6.4-8.2 [facility] Comment on above: Performed By: #### H GARY, CMP #### [facility] [address] [place] [address] Dr. Debra Blake Sodium [Moles/Vol] 123 mmol/L Critically low 136-145 [facility] Comment on above: Result Comment: Test Repeated. Critical Value Verified Performed By: #### H GARY, CMP #### [facility] [address] [address] [address] Debra Blake Urea nitrogen [Mass/Vol] 29.0 mg/dL Critically high 7.0-18 .0 [facility] Comment on above: Performed By: #### H GARY, CMP #### [facility] [address] [address] [address] Debra Blake Urea nitrogen/Creatinine [Mass ratio] 10.9 mg/mg Normal [facility] Comment on above: Performed By: #### H GARY, CMP #### [facility] [address] [place] [address] Dr. Debra Blake Phosphate [Mass/volume] in S lydia or PlasmaOrdered By: Hong Mcintosh on 12-04-2021 Phosphate [Mass/Vol] 3.6 mg/dL 2.5-4.6 [facility] Platelet poor plasma interna tional normalized ratio (INR) by coagulation assay (relatOrdered By: Hong Mcintosh on 12-04-2021 INR Coag (PPP) [Relative time] 1.1 {INR} [facility] Comment on above: INR Therapeutic Rang e [...] with mechanical heart valves: 3 - 4.5 Protein [Mass/volume] in Ser um or PlasmaOrdered By: Hong Mcintosh on 12-04-2021 Protein [Mass/Vol] 6.2 g/dL 6.1-7.9 [facility] Serum ionized calcium measur ement using ion specific electrode (mass/volume)Ordered By: Hong Mcintosh on 12-04-2021 Calcium.ionized ISE [Mass/Vol] 3.5 mg/dL 4.5-5.6 [facility] Comment on above: Performed at: [place] [id number] Data Integrity Consultant: Sanford Mehta PhD, Phone: [phone] Serum or plasma alanine orellana otransferase measurement without P-5'-P (enzymatic activiOrdered By: Hong Mcintosh on 12-04-2021 ALT No additional P-5'-P [Catalytic activity/Vol] 8 U/L 10-60 [facility] Serum or plasma albumin/glob ulin mass ratioOrdered By: Hong Mcintosh on 12-04-2021 Albumin/Globulin [Mass ratio] 0.9 {ratio} [facility] Serum or plasma alkaline lauren sphatase measurement (enzymatic activity/volume)Ordered By: Hong Mcintosh on 12-04-2021 ALP [Catalytic activity/Vol] 51 U/L 32-92 [facility] Serum or plasma aspartate am inotransferase measurement (enzymatic activity/volume)Ordered By: Hong Mcintosh on 12-04-2021 AST [Catalytic activity/Vol] 15 U/L 10-42 [facility] Serum or plasma creatine kin ase MB (CKMB)/total creatine kinase (CK) ratio by calculaOrdered By: Hong Mcintosh on 12-04-2021 CK.MB Calc [Catalytic fraction] 1.4 % 0.00-2.50 [facility] Serum or plasma creatine kin ase MB measurement (mass/volume)Ordered By: Hong Mcintosh on 12-04-2021 CK.MB [Mass/Vol] 2.0 ng/mL 0.6-6.3 [facility] Serum or plasma non-glucuron idated bilirubin measurement (mass/volume)Ordered By: Hong Mcintosh on 12-04-2021 Bilirubin.indirect [Mass/Vol] 0.6 mg/dL [facility] Serum or plasma prealbumin m easurement (mass/volume)Ordered By: Hong Mcintosh on 12-04-2021 Prealbumin [Mass/Vol] 15.8 mg/dL 18.0-38.0 [facility] Serum or plasma total biliru bin measurement (mass/volume)Ordered By: Hong Mcintosh on 12-04-2021 Bilirubin [Mass/Vol] 0.8 mg/dL 0.3-1.2 [facility] TROPONIN, HIGH SENSITIVITYon 12-04-2021 HSTROP 91.0 pg/mL Critically high 4.0-51.3 [facility] Comment on above: Result Comment: CUT- OFF POINTS HAVE BEEN ESTABLISHED BASED ON THE FOURTH UNIVERSAL DEFINITIONS OF MYOCARDIAL INFARCTION. THE UPPER REFERENCE LIMIT (URL) OF TROPONIN, DEFINED THE 99TH PERCENTILE OF cTnI DISTRIBUTION IN A REFERENCE POPULATION, HAS BEEN CONFIRMED THE DECISION THRESHOLD FOR SC DIAGNOSIS. Performed By: #### H STROJOCELIN, CMP #### [facility] [address] [address] [address] Debra Blake HSTROP 107.8 pg/mL Critically high 4.0-51.3 [facility] Comment on above: Result Comment: CUT- OFF POINTS HAVE BEEN ESTABLISHED BASED ON THE FOURTH UNIVERSAL DEFINITIONS OF MYOCARDIAL INFARCTION. THE UPPER REFERENCE LIMIT (URL) OF TROPONIN, DEFINED THE 99TH PERCENTILE OF cTnI DISTRIBUTION IN A REFERENCE POPULATION, HAS BEEN CONFIRMED THE DECISION THRESHOLD FOR SC DIAGNOSIS. Performed By: #### H STROPN #### [facility] [address] [address] [address] Debra Blake TSHon 12-04-2021 TSH 0.321 uIU/mL Critically low 0.358-3.74 0 [facility] Comment on above: Performed By: #### H STROPN, CMP #### [facility] [address] [address] [address] Debra Blake TSH DL <= 0.005 mIU/L QnOrde red By: Hong Mcintosh on 12-04-2021 TSH Qn 0.39 m[IU]/L 0.45-5.33 [facility] Urine lactic acid measuremen tOrdered By: Hong Mcintosh on 12-04-2021 Lactate (U) [Moles/Vol] 1.3 mmol/L 0.5-2.2 [facility] CBC AUTO DIFFon 12-03-2021 BASO # 0.1 103/ul Normal 0.0-0.1 [facility] Comment on above: Performed By: #### H STROPN #### [facility] [address] [place] [address] Dr. Debra Blake Basophils/100 WBC (Bld) 0.6 % Normal 0.2-2.0 [facility] Comment on above: Performed By: #### H STROPN #### [facility] [address] [address] [address] Debra Blake EO # 0.1 103/ul Normal 0.0-0.7 [facility] Comment on above: Performed By: #### H STROPN #### [facility] [address] [address] [address] Debra Blake Eosinophils/100 WBC (Bld) 1.5 % Normal 0.9-7.0 [facility] Comment on above: Performed By: #### H STROPN #### [facility] [address] [address] [address] Debra Blake Erythrocyte distribution width (RBC) [Ratio] 14.6 % Normal 11.0-15.0 [facility] Comment on above: Performed By: #### H STROPN #### [facility] [address] [address] [address] Debra Blake Hematocrit (Bld) [Volume fraction] 27.4 % Critically low 36.0-48.0 [facility] Comment on above: Performed By: #### H STROPN #### [facility] [address] [place] [address] Dr. Debra Blake Hemoglobin (Bld) [Mass/Vol] 9.7 g/dL Critically low 12.0-16.0 [facility] Comment on above: Performed By: #### H STROPN #### [facility] [address] [place] [place] [address] Dr. Debra Blake IG # 0.08 10e3/ul Critically high 0.00-0.03 [facility] Comment on above: Performed By: #### H STROPN #### [facility] [address] [place] [place] [address] Dr. Debra Blake IG % 0.9 % Critically high 0.0-0.5 [facility] Comment on above: Performed By: #### H STROPN #### [facility] [address] [place] [address] Dr. Debra Blake LYMPH # 1.9 103/ul Normal 1.2-3.8 [facility] Comment on above: Performed By: #### H STROPN #### [facility] [address] [place] [address] Dr. Debra Blake Lymphocytes/100 WBC (Bld) 20.9 % Normal 20.5-60.0 [facility] Comment on above: Performed By: #### H STROPN #### [facility] [address] [place] [place] [address] Dr. Debra Blake MANUAL DIFF REQ NO Normal [facility] Comment on above: Performed By: #### H STROPN #### [facility] [address] [place] [address] Dr. Debra Blake MCH (RBC) [Entitic mass] 34.5 pg Critically high 26.7-3 4.0 [facility] Comment on above: Performed By: #### H STROPN #### [facility] [address] [address] [address] Debra Blake MCHC (RBC) [Mass/Vol] 35.4 g/dL Critically high 29.9-35.2 [facility] Comment on above: Performed By: #### H STROPN #### [facility] [address] [address] [address] Debra Blake MCV (RBC) [Entitic vol] 97.5 fL Normal 81.0-99.0 [facility] Comment on above: Performed By: #### H STROPN #### [facility] [address] [address] [address] Debra Blake MONO # 1.3 103/ul Critically high 0.3-0.8 [facility] Comment on above: Performed By: #### H STROPN #### [facility] [address] [address] [address] Debra Blake Monocytes/100 WBC (Bld) 14.3 % Critically high 1.7-12. 0 [facility] Comment on above: Performed By: #### H STROPN #### [facility] [address] [address] [address] Debra Blake NEUT # 5.5 103/ul Normal 1.4-6.5 [facility] Comment on above: Performed By: #### H STROPN #### [facility] [address] [address] [address] Debra Blake Neutrophils/100 WBC (Bld) 61.8 % Normal 43.0-75.0 [facility] Comment on above: Performed By: #### H STROPN #### [facility] [address] [address] [address] Debra Blake Platelet mean volume (Bld) [Entitic vol] 9.2 fL Critically low 9.5-13.5 [facility] Comment on above: Performed By: #### H STROPN #### [facility] [address] [address] [address] Debra Blake PLT 187 103/ul Normal 150-450 [facility] Comment on above: Performed By: #### H STROPN #### [facility] [address] [place] [address] Dr. Debra lBake RBC 2.81 106/ul Critically low 4.20-5.40 [facility] Comment on above: Performed By: #### H STROPN #### [facility] [address] [place] [place] [address] Dr. Debra Blake WBC 8.9 103/ul Normal 4.0-11.0 [facility] Comment on above: Performed By: #### H STROPN #### [facility] [address] [place] [address] Dr. Debra Blake [facility] SARS-CoV-2 (COVID-19) RNA YVONNE+probe Ql (Unsp spec) Not detected Normal NOT DETECTED [facility] Comment on above: Result Comment: When diagnostic [...] for this test is supported by the Vendor Analyst of Health and Human Service's declaration that [...] used). Performed By: #### C VDTBH #### [facility] [address] [address] Dr. Debra Blake ER URINE PROFILEon 2 Bilirubin Ql (U) Negative Normal NEGATIVE [facility] Comment on above: Performed By: #### U MICRO, ERUR #### [facility] [address] [place] [address] Dr. Debra Blake Clarity (U) CLEAR Normal CLEAR [facility] Comment on above: Performed By: #### U MICRO, ERUR #### [facility] [address] [address] [address] Debra Blake Color (U) LT. YELLOW Normal YELLOW [facility] Comment on above: Performed By: #### U MICRO, ERUR #### [facility] [address] [address] [address] Debra Blake ERUAHD A micrscopic examina tion will be performed if indicated. Normal [facility] Comment on above: Performed By: #### U MICRO, ERUR #### [facility] [address] [place] [address] Dr. Debra Blake Glucose Ql (U) Negative Normal NEGATIVE [facility] Comment on above: Performed By: #### U MICRO, ERUR #### [facility] [address] [place] [place] [address] Dr. Debra Blake Hemoglobin Ql (U) TRACE-LYSED Abnormal NEGATIVE [facility] Comment on above: Performed By: #### U MICRO, ERUR #### [facility] [address] [place] [address] Dr. Debra Blake Ketones Ql (U) Negative Normal NEGATIVE [facility] Comment on above: Performed By: #### U MICRO, ERUR #### [facility] [address] [place] [address] Dr. Debra Blake LEUKOCYTES MODERATE Abnormal NEGATIVE [facility] Comment on above: Performed By: #### U MICRO, ERUR #### [facility] [address] [place] [address] Dr. Debra Blake Nitrite Ql (U) Negative Normal NEGATIVE [facility] Comment on above: Performed By: #### U MICRO, ERUR #### [facility] [address] [place] [address] Dr. Debra Blake pH (U) 6.0 [pH] Normal 5-9 [facility] Comment on above: Performed By: #### U MICRO, ERUR #### [facility] [address] [place] [address] Dr. Debra Blake SPEC GRAVITY 1.010 Normal 1.005-<=1. 025 [facility] Comment on above: Performed By: #### U MICRO, ERUR #### [facility] [address] [place] [place] [address] Dr. Debra Blake UA PROTEIN TRACE Normal NEGATIVE/ TRACE [facility] Comment on above: Performed By: #### U MICRO, ERUR #### [facility] [address] [place] [address] Dr. Debra Blake UR MICRO IND INDICATED Normal [facility] Comment on above: Performed By: #### U MICRO, ERUR #### [facility] [address] [place] [address] Dr. Debra Blake Urobilinogen Qn (U) 0.2 {Pascale'U}/dL Normal 0.2 - 1. 0 [facility] Comment on above: Performed By: #### U MICRO, ERUR #### [facility] [address] [place] [address] Dr. Debra Blake MAGNESIUMon 12-03-2021 Magnesium [Mass/Vol] 0.4 mg/dL Critically low 1.8-2.4 [facility] Comment on above: Performed By: #### M G #### [facility] [address] [place] [address] Dr. Derba Blake PROF 14(COMP METB)on 022 Albumin [Mass/Vol] 3.2 g/dL Critically low 3.4-5.0 [facility] Comment on above: Performed By: #### H STROPN, CMP #### [facility] [address] [place] [place] [address] Dr. Debra Blake Albumin/Globulin [Mass ratio] 0.8 {ratio} Normal [facility] Comment on above: Performed By: #### H GARY, CMP #### [facility] [address] [place] [address] Dr. Debra Blake ALP [Catalytic activity/Vol] 64 U/L Normal 46-116 [facility] Comment on above: Performed By: #### H KINGSTONPN, CMP #### [facility] [address] [address] [address] Debra Blake ALT [Catalytic activity/Vol] 11 U/L Critically low 14-59 [facility] Comment on above: Performed By: #### H STROPN, CMP #### [facility] [address] [address] [address] Debra Blake Anion gap [Moles/Vol] 19.5 mmol/L Normal [facility] Comment on above: Performed By: #### H STROPN, CMP #### [facility] [address] [address] [address] Debra Blake AST [Catalytic activity/Vol] 19 U/L Normal 15-37 [facility] Comment on above: Performed By: #### H STROPN, CMP #### [facility] [address] [place] [address] Dr. Debra Blake Bilirubin [Mass/Vol] 0.5 mg/dL Normal 0.2-1.0 [facility] Comment on above: Performed By: #### H STROPN, CMP #### [facility] [address] [address] [address] Debra Blake Calcium [Mass/Vol] 5.8 mg/dL Critically low 8.5-10.1 [facility] Comment on above: Performed By: #### H STROPN, CMP #### [facility] [address] [address] [address] Debra Blake Chloride [Moles/Vol] 88 mmol/L Critically low 98-107 [facility] Comment on above: Performed By: #### H STROPN, CMP #### [facility] [address] [address] [address] Debra Blake CO2 [Moles/Vol] 19.7 mmol/L Critically low 21.0-32.0 [facility] Comment on above: Performed By: #### H STROPN, CMP #### [facility] [address] [address] [address] Debra Blake Creatinine [Mass/Vol] 2.77 mg/dL Critically high 0.55-1.02 [facility] Comment on above: Performed By: #### H STROPN, CMP #### [facility] [address] [address] [address] Debra Blake EGFR-AF TRINIDADIAN 21 mL/min/1.73m2 Critically low >=60 [facility] Comment on above: Performed By: #### H STROPN, CMP #### [facility] [address] [address] [address] Debra Blake EGFR-NON AF TRINIDADIAN 18 mL/min/1.73m2 Critically low >=60 [facility] Comment on above: Performed By: #### H STROPN, CMP #### [facility] [address] [address] [address] Debra Blake Globulin (S) [Mass/Vol] 3.9 g/dL Normal [facility] Comment on above: Performed By: #### H STROPN, CMP #### [facility] [address] [address] [address] Debra Blake Glucose [Mass/Vol] 99 mg/dL Normal 74-106 [facility] Comment on above: Performed By: #### H STROPN, CMP #### [facility] [address] [address] [address] Debra Blake Potassium [Moles/Vol] 3.2 mmol/L Critically low 3.5-5.1 [facility] Comment on above: Performed By: #### H STROPN, CMP #### [facility] [address] [address] [address] Debra Blake Protein [Mass/Vol] 7.1 g/dL Normal 6.4-8.2 [facility] Comment on above: Performed By: #### H STROPN, CMP #### [facility] [address] [address] [address] Debra Blake Sodium [Moles/Vol] 124 mmol/L Critically low 136-145 [facility] Comment on above: Performed By: #### H STROPN, CMP #### [facility] [address] [address] [address] Debra Blake Urea nitrogen [Mass/Vol] 28.0 mg/dL Critically high 7.0-18 .0 [facility] Comment on above: Performed By: #### H GARY, CMP #### [facility] [address] [place] [address] Dr. Debra Blake Urea nitrogen/Creatinine [Mass ratio] 10.1 mg/mg Normal [facility] Comment on above: Performed By: #### H GARY, CMP #### [facility] [address] [place] [address] Dr. Debra Blake TROPONIN, HIGH SENSITIVITYon 12-03-2021 HSTROP 96.9 pg/mL Critically high 4.0-51.3 [facility] Comment on above: Result Comment: CUT- OFF POINTS HAVE BEEN ESTABLISHED BASED ON THE FOURTH UNIVERSAL DEFINITIONS OF MYOCARDIAL INFARCTION. THE UPPER REFERENCE LIMIT (URL) OF TROPONIN, DEFINED THE 99TH PERCENTILE OF cTnI DISTRIBUTION IN A REFERENCE POPULATION, HAS BEEN CONFIRMED THE DECISION THRESHOLD FOR SC DIAGNOSIS. Performed By: #### H GARY, CMP #### [facility] [address] [place] [address] Dr. Debra Blake HSTROP 102.0 pg/mL Critically high 4.0-51.3 [facility] Comment on above: Result Comment: CUT- OFF POINTS HAVE BEEN ESTABLISHED BASED ON THE FOURTH UNIVERSAL DEFINITIONS OF MYOCARDIAL INFARCTION. THE UPPER REFERENCE LIMIT (URL) OF TROPONIN, DEFINED THE 99TH PERCENTILE OF cTnI DISTRIBUTION IN A REFERENCE POPULATION, HAS BEEN CONFIRMED THE DECISION THRESHOLD FOR SC DIAGNOSIS. Performed By: #### H GARY, CMP #### [facility] [address] [address] Dr. Debra Blake URINE MICROSCOPIC ONLYon BACTERIA SMALL Abnormal NONE SEEN [facility] Comment on above: Performed By: #### U MICRO, ERUR #### [facility] [address] [place] [address] Dr. Debra Blake Bacteria identified Cx Nom (U) INDICATED Normal [facility] Comment on above: Performed By: #### U MICRO, ERUR #### [facility] [address] [place] [address] Dr. Debra Blake CAST NONE SEEN Normal NONE SEEN [facility] Comment on above: Performed By: #### U MICRO, ERUR #### [facility] [address] [address] [address] Debra Blake Crystals LM Nom (Urine sed) NONE SEEN Normal NONE SEEN [facility] Comment on above: Performed By: #### U MICRO, ERUR #### [facility] [address] [place] [address] Dr. Debra Blake Epithelial cells LM Ql (Urine sed) FEW Abnormal NONE SEEN /RARE [facility] Comment on above: Performed By: #### U MICRO, ERUR #### [facility] [address] [place] [address] Dr. Debra Blake MUCOUS NONE SEEN Normal NONE SEEN [facility] Comment on above: Performed By: #### U MICRO, ERUR #### [facility] [address] [address] Dr. Debra Blake RBC 2-5 Abnormal 0-2 [facility] Comment on above: Performed By: #### U MICRO, ERUR #### [facility] [address] [place] [address] Dr. Debra Blake WBC (U) [#/Vol] /uL Abnormal NONE SEEN [facility] Comment on above: Performed By: #### U MICRO, ERUR #### [facility] [address] [place] [address] Dr. Debra Blake XR CHEST 1 Von [...] by: CODY ALEXANDER Date: 2021-12-03 19:03 Normal [facility] Vital Signs Date Time Vital Sign Value Performing Clinician Facility 12-27-2023 14:41-0400 Diastolic blood pressure 100 mm[Hg] [facility] 12-27-2023 14:41-0400 Heart rate 86 /min Katie Velasquez APRN Work Phone: [facility] 12-27-2023 14:41-0400 Systolic blood pressure 184 mm[Hg] [facility] 12-27-2023 14:35-0400 Body height 165.1 cm [facility] 12-27-2023 14:35-0400 Body mass index (BMI) [Ratio] 28.3 kg/m2 [facility] 12-27-2023 14:35-0400 Body temperature 98 [degF] [facility] 12-27-2023 14:35-0400 Body weight 77.16 kg [facility] 12-27-2023 14:35-0400 Heart rate 138 /min [facility] 12-27-2023 14:35-0400 Respiratory rate 20 /min [facility] 12-27-2023 14:35-0400 SaO2% (BldA) [Mass fraction] 99 % [facility] 09-28-2023 14:43-0400 Body height 165.1 cm [facility] 09-28-2023 14:43-0400 Body mass index (BMI) [Ratio] 25.6 kg/m2 [facility] 09-28-2023 14:43-0400 Body weight 69.85 kg [facility] 09-28-2023 14:43-0400 Diastolic blood pressure 76 mm[Hg] [facility] 09-28-2023 14:43-0400 Heart rate 77 /min [facility] 09-28-2023 14:43-0400 SaO2% (BldA) [Mass fraction] 98 % [facility] 09-28-2023 14:43-0400 Systolic blood pressure 118 mm[Hg] [facility] 03-15-2022 20:42-0500 Diastolic blood pressure 89 mm[Hg] DO Segundo House Work Phone: [facility] 03-15-2022 20:42-0500 Heart rate 98 /min DO Hapzing Work Phone: [facility] 03-15-2022 20:42-0500 Respiratory rate 18 /min DO Segundo House Work Phone: [facility] 03-15-2022 20:42-0500 SaO2% (BldA) [Mass fraction] 99 % DO Segundo House Work Phone: [facility] 03-15-2022 20:42-0500 Systolic blood pressure 158 mm[Hg] DO Segundo House Work Phone: [facility] 03-15-2022 18:02-0500 Body temperature 98 [degF] DO Segundo House Work Phone: [facility] 03-15-2022 17:59-0500 Body height 162.56 cm DO Segundo House Work Phone: [facility] 03-15-2022 17:59-0500 Body weight 69.3 kg DO Segundo House Work Phone: [facility] 03-15-2022 17:40-0500 Body height 165.1 cm William Vaibhav Other [employer] Other 03-15-2022 17:40-0500 Body mass index (BMI) [Ratio] 25.39 kg/m2 William Vaibhav Other [employer] Other 03-15-2022 17:40-0500 Body temperature 96.6 [degF] William Vaibhav Other [employer] Other 03-15-2022 17:40-0500 Body weight 69.22 kg William Vaibhav Other [employer] Other 03-15-2022 17:40-0500 Diastolic blood pressure 137 mm[Hg] William Vaibhav Other [employer] Other 03-15-2022 17:40-0500 Respiratory rate 18 /min William Vaibhav Other [employer] Other 03-15-2022 17:40-0500 SaO2% (BldA) [Mass fraction] 98 % William Vaibhav Other [employer] [facility] [place] Other 03-15-2022 17:40-0500 Systolic blood pressure 221 mm[Hg] William Vaibhav Other [facility] [employer] Other 12-10-2021 11:52-0400 Body temperature 98 [degF] DO Segundo House Work Phone: [facility] 12-10-2021 11:52-0400 Diastolic blood pressure 82 mm[Hg] DO Segundo House Work Phone: [facility] 12-10-2021 11:52-0400 Heart rate 77 /min DO Segundo House Work Phone: [facility] 12-10-2021 11:52-0400 Respiratory rate 16 /min DO Segundo House Work Phone: [facility] 12-10-2021 11:52-0400 SaO2% (BldA) [Mass fraction] 99 % DO Segundo House Work Phone: [facility] 12-10-2021 11:52-0400 Systolic blood pressure 132 mm[Hg] DO Segundo House Work Phone: [facility] 12-10-2021 06:00-0400 Body weight 88 kg DO Segundo House Work Phone: [facility] 12-08-2021 14:53-0400 Body height 165.1 cm DO Segundo House Work Phone: [facility] Encounters Encounter Date Encounter Type Care Provider Facility Start: 02-19-2024 End: 02-19-2024 ambulatory Katie Velasquez APRN Work Phone: [facility] Work Phone: Start: 02-19-2024 End: 02-19-2024 Departed Referred Katie Velasquez SECURITY AND PRIVACY CONSULTANT Work Phone: [facility] Start: 12-27-2023 End: 12-27-2023 ambulatory [facility] Work Phone: Start: 12-27-2023 End: 12-27-2023 Patient encounter procedure [facility] Work Phone: Start: 09-28-2023 End: 09-28-2023 ambulatory [facility] Work Phone: Start: 09-28-2023 End: 09-28-2023 Patient encounter procedure [facility] Work Phone: Start: 03-15-2022 End: 03-15-2022 Emergency department patient visit DO Segundo House Work Phone: [facility] Start: 03-15-2022 End: 03-15-2022 ambulatory William Vaibhav Other [employer] Other Start: 03-15-2022 Office outpatient visit 25 minutes William Vaibhav [facility] Start: 12-19-2021 End: 12-19-2021 ambulatory JUNO HERNÁNDEZ Facility:[facility]1 Start: 12-15-2021 ambulatory MD Luis SAMS [facility] ity:BOO Ingram Start: 12-08-2021 End: 12-09-2021 ambulatory MD Luis SAMS Facility:CD:[id number] Start: 12-04-2021 End: 12-10-2021 Evaluation and management of inpatient DO Segundo House Work Phone: [facility] [employer] Start: 12-03-2021 End: 12-04-[address] UNIQUE AUSTIN Facility:[facility]1 Start: 07-04-2017 End: 07-05-2017 Ambulatory DEFAULT PHYSICIAN Facility:[facility] Start: 05-02-2017 End: 05-03-2017 Ambulatory DEFAULT PHYSICIAN Facility:[facility] Procedures Date Procedure Procedure Detail Performing Clinician Start: 03-15-2022 Plain chest X-ray DO Henna Rawls Work Phone: Start: 12-08-2021 CT of abdomen and pe lvis without contrast DO Segundo [place] Work Phone: Start: 12-07-2021 Ultrasonography of b ilateral kidneys DO Segundo [place] Work Phone: Start: 12-06-2021 CT of chest without contrast DO Segundo [place] Work Phone: Measurement of occul t blood in stool specimen using immunoassay DO Segundo [place] Work Phone: Urine culture DO Segundo [facility] Work Phone: Plan of Treatment Date Care Activity Detail Author Start: 12-27-2023 Patient referral [facility] Work Phone: Start: 09-28-2023 Patient referral [facility] Work Phone: Start: 12-10-2021 [facility] Work Phone: Start: 12-08-2021 Referral to urologist [facility] Work Phone: Start: 12-06-2021 Referral to video tape transferrer [facility] Work Phone: Start: 12-05-2021 Referral to technicians and trades workers [facility] Work Phone: Start: 12-05-2021 Administration of prophylactic treatment [facility] Work Phone: Start: 12-05-2021 Ascorbic acid [facility] Work Phone: Start: 12-04-2021 [facility] electrician third [facility] Work Phone: Start: 12-04-2021 Referral to Putty Remover [facility] Work Phone: Start: 12-04-2021 Hospital admission [facility] Work Phone: Blood chemistry [facility] Work Phone: Comprehensive metabo lic 2000 panel - Serum or Plasma [facility] MG Breast - bilatera l Diagnostic [facility] Patient Education High Blood Pre ssure ED [facility] Work Phone: Patient referral [facility] egional [facility] Work Phone: Phosphatidylethanol [Mass/volume] in Blood [facility] Work Phone: Thiamine [Moles/volu me] in Blood [facility] Work Phone: US Breast - left limited Fir [facility] Payers Date Payer Category Payer Self-pay 1965 Unknown [id number] [id number] 1965 Unknown [id number] [id number] [id number] 1965 Unknown [id number] 1961 Unknown [id number] [facility] [id number] Unknown Unknown [id number] [id number] [id number] Social History Date Type Detail Facility Start: 12-08-2021 End: 09-28-2023 Tobacco smoking status NHIS Smoker (finding) [facility] Start: 1965 Sex Assigned At Female F [facility] Sex Assigned At Sex Assigned At Bir th [employer] Other Start: 02-21-2024 Sex Female (finding) [facility] Goals Date Patient Goal Desired Activity /State Functional Status Date Assessment Result Facility 12-10-2021 Functional status Patient is Pro gressing Toward Baseline [facility] Work Phone: Mental Status Date Assessment Result Facility 12-10-2021 Cognitive function Cognitive Sta tus Patient at Baseline [facility] Work Phone: Clinical Notes 12-04-2021 to 12-27-2023 Note Date & Type Note Facility 12-27-2023 Evaluation note Diagnosis Onset Date Resolution Alcohol abuse acute December 092023 2:30pm Breast enlargement acute 2023 2:30pm Breast skin changes acute mb2023 2:30pm Frequent falls acute December 27, 2023 2:30pm GERD (gastroesophageal reflux disease) acute December 27, 2023 2:30pm Hypertension acute December 262023 2:30pm Hypomagnesemia acute December 27, 2023 2:30pm Hypothyroid acute December 2:30pm Lupus acute December 2:30pm Noncompliance acute December 092023 2:30pm Paroxysmal atrial fibrillation with RVR acute December 27, 2023 2:30pm Rheumatoid arthritis acute Dec 2:30pm Stress-induced cardiomyopathy acute December 27, 2023 2:30pm Type 2 myocardial infarction acute December 27, 2023 2:30pm Weakness acute December 2:30pm [facility] Work Phone: 1(700) 520-711612-06-2022 Evaluation note* Encounter Date Diagnosis Assessment Notes Treatment Notes Treatment Clinical Notes Mar, Chronic kidney disease, stage III [...] Calcium are within normal limit. Mar, Oswald shine w cr kid I-IV (ICD-10 - I12.9) Her blood pressure is high due to medication noncompliance. Advised to go to the emergency room. [employer] Other 09-07-2022 Note [id number]:[address] [place] [address] 12-10-2021 Discharge summary Author Hong Mcintosh [facility] December 10, 2021 7:47pm Note Date/Time December 10, 2021 1:26pm [facility] [address] [place] [address] Discharge Summary Signed Patient: Juanita Redman MR#: [id number] : 1965 Acct:[id number] Age/Sex: 56 / F Adm Date: 2 Loc: Room: [address] [place] [address]: Hong Mcintosh DO Copies to: MD Segundo Tijerina, DO Luis Hernandez MD~ Providers Date of Discharge: 12/10/21 Discharging [...] about 24 hours before bed opened up. [facility]. Here in the hospital she did initially [...] ablation for that problem x2 at the [facility]. She had nephrology consultation. He felt that [...] % (Auto) 62.7, Lymph % (Auto) 21.7, [place] % (Auto) 11.2, Eos % (Auto) 3.5, Baso % (Auto) 0.9, Neut # (Auto) 3.9, Lymph # (Auto) 1.4, [place] # (Auto) 0.7, Eos # (Auto) 0.2, Baso # (Auto) 0.1, Nucleated RBC % (auto) 0.0 12/09/21 18:15: Hgb 8.0 L, Hct 24.2 L 12/09/21 14:48: Double Strand DNA Ab <1 12/07/21 12:45: Ur Random Albumin 69.2, U Random Total Protein 51.3, U Hpiqb-5-Ujdirpcf (%) 3.1, U Random d-1-Ojfkjfnw % 6.0, U Random b-Globulin % 13.5, [...] Ordered By: William Esposito Follow Up: Rehan Isidro MD [Active Staff] - (The office is [...] up appointment.) Documented By: Hong Mcintosh DO 1326 Signed By: <Electronically signed by Hong Mcintosh DO> 12/10/21 7683 [facility] Work Phone: 1(752) 396-493809-02-2022 Progress note Author William Esposito [facility] December 10, 2021 11:31am Note Date/Time December 10, 2021 11:24am [facility] [address] [place], [place] [id number] Nephrology Progress Note Signed Patient: Juanita Redman MR#: [id number] : 1965 Acct:[id number] Age/Sex: 56 / F Adm Date: 2 Loc: Room: [address] [place] [address] Type: ADM IN Attending Dr: Hong Mcintosh DO Copies to: ~ Date of Service: 12/10/2021 Subjective Subjective Narrative: Mrs. Redman is a 56-year-old white female with history of COPD, smoker, alcohol abuse and hypothyroidism on levothyroxine who was transferred from [facility] on 12/04 for abnormal blood work showing [...] 1 g of calcium before transfer to [facility]. Today's creatinine is slightly better 1.87 mg/dL [...] visible mass Skin: No rashes or bruises OPTICAL MECHANIC: Awake,Alert, following simple command Musculoskeletal: No joint swelling or limitation of movement Psychiatric: Cooperative, normal mood and affect abdominal hysterectomy Objective Intake and Output I&O: Intake & Output 12/07/21 12/08/21 12/09/21 12/10/21 23:59 23:59 23:59 23:59 Intake Total 1186.2 [...] 40 Mg Tablet) 40 mg PO DAILY.8A [facility] Stop: 12/10/22 07:59 Last Admin: 12/10/21 08:31 [...] DAILY.0630 [facility] Stop: 12/05/22 06:29 Last Admin: 12/10/21 07:31 Dose: 50 mcg Metoprolol Succinate (Metoprolol Succinate 100 Mg Tab.Er.24h) 100 mg PO DAILY [facility] Stop: 12/04/22 17:43 Last Admin: 12/10/21 08:30 Dose: 100 mg Metoprolol Tartrate (Metoprolol Tartrate 5 Mg/5 Ml Vial) 5 mg IV-PUSH Q4H PRN PRN Reason: tachycardia Stop: 12/06/22 19:17 Nicotine (Nicotine Patch 21 Mg/24hr 1 Each Patch.Td24) 1 each TRANSDERML DAILY [facility] Stop: 12/06/22 08:59 Last Admin: 12/10/21 08:31 Dose: Not Given Omeprazole (Omeprazole 20 Mg Capsule.Dr) 20 mg PO DAILY [facility] Stop: 12/05/22 08:59 Last Admin: 12/10/21 08:31 [...] TID [facility] Stop: 12/07/22 13:59 Last Admin: 12/10/21 08:30 Dose: 650 mg Sodium Chloride (Sodium Chloride 0.9 % 10 Ml Syringe) 0 ml IV-PUSH PRN PRN PRN Reason: Flush Stop: 12/04/22 10:15 Last Admin: 12/08/21 21:14 Dose: 10 ml Thiamine HCl (Thiamine 100 Mg Tablet) 200 mg PO DAILY [facility] Stop: 12/10/22 08:59 [...] physician into a diagnostic report(s) for Juanita Taylorconydalton. I have reviewed the report(s) and am [...] <Electronically signed by William Esposito MD> 12/10/21 1130 [facility] Work Phone: 1(540) 796-365409-01-2022 Progress note Author Hong Mcintosh [facility] December 09, 2021 4:10pm Note Date/Time December 09, 2021 4:10pm [facility] [address] [place] [address] Hospitalist Progress Note Signed Patient: Juanita Redman MR#: [id number] : 1965 Acct:[id number] Age/Sex: 56 / F Adm Date: 2 Loc: Room: [address] [place] [address] Type: ADM IN Attending Dr: Hong Mcintosh [...] Tablet. PO 12/09/22 09:14 324 mg Q48H [facility] Administration Folic Acid 1 mg 12/10/21 09:00 [...] 100 Mg Tablet PO 12/10/22 08:59 DAILY [facility] Vitamin D 20 mcg 12/07/21 08:00 12/09/21 [...] this time. Documented By: Hong Mcintosh DO 1607 Signed By: <Electronically signed by Hong Mcintosh DO> 12/09/21 1610 [facility] Work Phone: 1(720) 715-664809-01-2022 Progress note Author William Esposito [facility] December 09, 2021 10:58am Note Date/Time December 09, 2021 10:58am [facility] [address] [place] [address] Nephrology Progress Note Signed Patient: Juanita Redman MR#: [id number] : 1965 Acct:[id number] Age/Sex: 56 / F Adm Date: 2 Loc: Room: [address] [place] [address] Type: ADM IN Attending Dr: Hong Mcintosh DO Copies to: ~ Date of Service: 12/09/2021 Subjective Subjective Narrative: Mrs. Redman is a 56-year-old white female with history of COPD, smoker, alcohol abuse and hypothyroidism on levothyroxine who was transferred from [facility] on 12/04 for abnormal blood work showing [...] 1 g of calcium before transfer to [facility]. Today's creatinine is slightly better 1.87 mg/dL [...] visible mass Skin: No rashes or bruises OPTICAL MECHANIC: Awake,Alert, following simple command Musculoskeletal: No joint swelling or limitation of movement Psychiatric: Cooperative, normal mood and affect abdominal hysterectomy Objective Intake and Output I&O: Intake & Output 12/06/21 12/07/21 12/08/21 12/09/21 23:59 23:59 23:59 23:59 Intake Total 1794.2 / 1794.2 1186.2 / 1186.2 1196.2 / 1196.2 200 / 200 Output Total 600 / 600 Balance 1792.2 / 1792.2 [...] 500 Mg Tablet) 500 mg PO BID.WITH.BFAST.LUNCH [facility] Stop: 12/05/22 07:59 Last Admin: 12/09/21 08:25 Dose: 500 mg Calcium Carbonate (Calcium Carbonate 500 Mg Tablet) 1,000 mg PO BID [facility] Stop: 12/06/22 09:29 Last Admin: 12/09/21 08:13 Dose: 1,000 mg Chlordiazepoxide HCl (Chlordiazepoxide 25 Mg Capsule) 0 mg PO PROTOCOL PRN; Protocol PRN Reason: Alcohol Withdrawal Stop: 06/04/22 19:32 Last Admin: 12/08/21 21:14 Dose: 50 mg Ferrous Sulfate (Ferrous Sulfate 324 Mg Tablet.Dr) 324 mg PO Q48H [facility] Stop: 12/09/22 09:14 Last Admin: 12/09/21 09:37 Dose: 324 mg Furosemide (Furosemide 40 Mg Tablet) 40 mg PO DAILY.8A [facility] Stop: 12/10/22 07:59 Magnesium Sulfate (Magnesium Sulf 2gm-*Swfi*) 2 gm in 50 mls @ 25 mls/hr IV DAILY PRN PRN Reason: Magnesium Level < 1.5 Stop: 12/04/22 10:15 Folic Acid 1 mg/ Dextrose 50.2 mls @ 100.4 mls/hr IV DAILY [facility] Stop: 12/04/22 13:59 Last Admin: 12/09/21 09:37 Dose: 100 mls/hr Thiamine HCl 200 mg/ Sodium (Chloride) 102 mls @ 204 mls/hr IV TID [facility] Stop: 12/04/22 21:59 Last Admin: 12/09/21 09:37 Dose: 204 mls/hr Levofloxacin (Levofloxacin 750 Mg Tablet) 750 mg PO Q48H [facility] Stop: 12/16/21 09:00 Last Admin: 12/09/21 08:13 Dose: 750 mg Levothyroxine Sodium (Levothyroxine 50 Mcg Tablet) 50 mcg PO DAILY.629 [facility] Stop: 12/05/22 06:29 Last Admin: 12/09/21 05:30 Dose: 50 mcg Metoprolol Succinate (Metoprolol Succinate 100 Mg Tab.Er.24h) 100 mg PO DAILY [facility] Stop: 12/04/22 17:43 Last Admin: 12/09/21 08:14 Dose: 100 mg Metoprolol Tartrate (Metoprolol Tartrate 5 Mg/5 Ml Vial) 5 mg IV-PUSH Q4H PRN PRN Reason: tachycardia Stop: 12/06/22 19:17 Nicotine (Nicotine Patch 21 Mg/24hr 1 Each Patch.Td24) 1 each TRANSDERML DAILY [facility] Stop: 12/06/22 08:59 Last Admin: 12/09/21 08:15 Dose: Not Given Omeprazole (Omeprazole 20 Mg Capsule.Dr) 20 mg PO DAILY [facility] Stop: 12/05/22 08:59 Last Admin: 12/09/21 08:14 Dose: 20 mg Potassium Chloride (Potassium Chloride Er 20 Meq Tab.Er.Prt) 20 meq PO DAILY PRN PRN Reason: Hypokalemia Stop: 12/04/22 10:15 Potassium Chloride (Potassium Chloride Er 20 Meq Tab.Er.Prt) 40 meq PO DAILY PRN PRN Reason: Hypokalemia Stop: 12/04/22 10:15 Sodium Bicarbonate (Sodium Bicarbonate 650 Mg Tablet) 650 mg PO TID [facility] Stop: 12/07/22 13:59 Last Admin: 12/09/21 08:14 Dose: 650 mg Sodium Chloride (Sodium Chloride 0.9 % 10 Ml Syringe) 0 ml IV-PUSH PRN PRN PRN Reason: Flush Stop: 12/04/22 10:15 Last Admin: 12/08/21 21:14 Dose: 10 ml Vitamin D (Cholecalciferol 10 Mcg (400 Units) Tablet) 20 mcg PO BID.WITH.MEALS [facility] Stop: 12/07/22 07:59 Last Admin: 12/09/21 08:13 [...] Unique Enciso M.D.12/08/2021 5:49 PM [employer]ict[employer] Location: [place] [address] Any impression(s) listed above is documentation that [...] discharge. Documented By: William Esposito MD 12/09/21 1058 Signed By: <Electronically signed by William Esposito MD> 12/09/21 4298 [facility] Work Phone: [phone]) 194-800308-31-2022 Progress note Author Claude Castellanos [facility] December 08, 2021 6:59pm Note Date/Time December 08, 2021 6: 59pm [facility] [address] [place] [address] Hospitalist Progress Note Signed Patient: Juanita Redman MR#: [id number] : 1965 Acct:[id number] Age/Sex: 56 / F Adm Date: 2 Loc: Room: 5W1721-6 Type: ADM IN Attending Dr: Claude Castellanos [...] <Electronically signed by Claude Castellanos MD> 12/08/211858 [facility] Work Phone: [phone]) [phone] Consult note Author Luis Sams [facility] December 08, 2021 3:55pm Note Date/Time December 08, 2021 3: 55pm [facility] [address] [place] [address] Urology Consult Note Signed Patient: Juanita Redman MR#: [id number] : 1965 Acct:[id number] Age/Sex: 56 / F Adm Date: 2 Loc: Room: [address] [place] [address] Type: ADM IN Attending Dr: Claude Castellanos MD Copies to: DO Claude Rose MD Patrick R Waters, MD~ History of Present Illness Consult Details Consult Date: 12/08/2021 Requesting Provider: Claude Castellanos MD HPI: This lady was admitted to the hospital after transfer from [facility] dueto low sodium, calcium and magnesium and [...] PMFSH Vaccinated for COVID-19?: No Medical History Alcohol [...] % (Auto) 55.8, Lymph % (Auto) 27.7, [place] % (Auto) 13.1, Eos % (Auto) 2.7, Baso % (Auto) 0.7, Neut # (Auto) 3.1, Lymph # (Auto) 1.6, [place] # (Auto) 0.7, Eos # (Auto) 0.2, [...] % (Auto) 83.6, Lymph % (Auto) 7.8, [place] % (Auto) 8.3, Eos % (Auto) 0.1, Baso % (Auto) 0.2, Neut # (Auto) 6.2, Lymph # (Auto) 0.6 L, [place] # (Auto) 0.6, Eos # (Auto) 0.0, [...] care. Documented By: Luis Sams MD 12/08/21 1546 Signed By: <Electronically signed by MD Luis Sams> 12/08/21 1555 [facility] Work Phone: 1(286) 270-136208-31-2022 Progress note Author William Esposito [facility] December 08, 2021 11:01am Note Date/Time December 08, 2021 10 :55am [facility] [address] [place] [address] Nephrology Progress Note Signed Patient: Juanita Redman MR#: [id number] : 1965 Acct:[id number] Age/Sex: 56 / F Adm Date: 2 Loc: Room: [address] [place] [address] Type: ADM IN Attending Dr: Claude Castellanos MD Copies to: ~ Date of Service: 12/08/2021 Subjective Subjective Narrative: Mrs. Redman is a 56-year-old white female with history of COPD, smoker, alcohol abuse and hypothyroidism on levothyroxine who was transferred from [facility] on 12/04 for abnormal blood work showing [...] 1 g of calcium before transfer to [facility]. Today's creatinine is slightly better 1.87 mg/dL [...] visible mass Skin: No rashes or bruises OPTICAL MECHANIC: Awake,Alert, following simple command Musculoskeletal: No joint swelling or limitation of movement Psychiatric: Cooperative, normal mood and affect abdominal hysterectomy Objective Intake and Output I&O: Intake & Output 12/05/21 12/06/21 12/07/21 12/08/21 23:59 23:59 23:59 23:59 Intake Total 3658.2 / 3658.2 1794.2 / 1794.2 1186.2 / 1186.2 342 / 342 Output Total 500 / 500 Balance 3658.2 / 3658.2 [...] 500 Mg Tablet) 500 mg PO BID.WITH.BFAST.LUNCH [facility] Stop: 12/05/22 07:59 Last Admin: 12/08/21 08:29 Dose: 500 mg Calcium Carbonate (Calcium Carbonate 500 Mg Tablet) 1,000 mg PO BID [facility] Stop: 12/06/22 09:29 Last Admin: 12/08/21 08:29 [...] 50.2 mls @ 100.4 mls/hr IV DAILY [facility] Stop: 12/04/22 13:59 Last Admin: 12/08/21 09:44 Dose: 100 mls/hr Thiamine HCl 200 mg/ Sodium (Chloride) 102 mls @ 204 mls/hr IV TID [facility] Stop: 12/04/22 21:59 Last Infusion: 12/08/21 08:59 Dose: Infused Levofloxacin (Levofloxacin 750 Mg Tablet) 750 mg PO Q48H [facility] Levothyroxine Sodium (Levothyroxine 50 Mcg Tablet) 50 mcg PO DAILY.0630 [facility] Stop: 12/05/22 06:29 Last Admin: 12/08/21 05:51 Dose: 50 mcg Metoprolol Succinate (Metoprolol Succinate 100 Mg Tab.Er.24h) 100 mg PO DAILY [facility] Stop: 12/04/22 17:43 Last Admin: 12/08/21 08:29 Dose: 100 mg Metoprolol Tartrate (Metoprolol Tartrate 5 Mg/5 Ml Vial) 5 mg IV-PUSH Q4H PRN PRN Reason: tachycardia Stop: 12/06/22 19:17 Nicotine (Nicotine Patch 21 Mg/24hr 1 Each Patch.Td24) 1 each TRANSDERML DAILY [facility] Stop: 12/06/22 08:59 Last Admin: 12/08/21 08:29 Dose: Not Given Omeprazole (Omeprazole 20 Mg Capsule.Dr) 20 mg PO DAILY [facility] Stop: 12/05/22 08:59 Last Admin: 12/08/21 08:28 Dose: 20 mg Potassium Chloride (Potassium Chloride Er 20 Meq Tab.Er.Prt) 20 meq PO DAILY PRN PRN Reason: Hypokalemia Stop: 12/04/22 10:15 Potassium Chloride (Potassium Chloride Er 20 Meq Tab.Er.Prt) 40 meq PO DAILY PRN PRN Reason: Hypokalemia Stop: 12/04/22 10:15 Sodium Bicarbonate (Sodium Bicarbonate 650 Mg Tablet) 650 mg PO TID [facility] Stop: 12/07/22 13:59 Last Admin: 12/08/21 08:28 Dose: 650 mg Sodium Chloride (Sodium Chloride 0.9 % 10 Ml Syringe) 0 ml IV-PUSH PRN PRN PRN Reason: Flush Stop: 12/04/22 10:15 Last Admin: 12/05/21 22:07 Dose: 10 ml Vitamin D (Cholecalciferol 10 Mcg (400 Units) Tablet) 20 mcg PO BID.WITH.MEALS [facility] Stop: 12/07/22 07:59 Last Admin: 12/08/21 08:28 [...] Unique Enciso M.D.12/07/2021 4:27 PM Dictation Location: [place] [address] Any impression(s) listed above is documentation that [...] signed by William Esposito MD> 12/08/21 1101 [facility] Work Phone: [phone]) 228-854708-30-2022 Progress note Author Claude Castellanos [facility] December 07, 2021 8:00pm Note Date/Time December 07, 2021 8: 00pm [facility] [address] [place] [address] Hospitalist Progress Note Signed Patient: Juanita Redman MR#: [id number] : 1965 Acct:[id number] Age/Sex: 56 / F Adm Date: 2 Loc: Room: [address] [place] [address] Type: ADM IN Attending Dr: Claude Castellanos [...] Lab Results CBC & Chem 7: 12/07/21 04:12/07/21 04:24 Microbiology Results Microbiology 12/05/21 07:00 Urine [...] <Electronically signed by Claude Castellanos MD> 12/07/211999 [facility] Work Phone: [phone] 287-821708-30-2022 Consult note Author Kylah Kingsley [facility] December 07, 2021 4:57pm Note Date/Time December 07, 2021 4: 51pm [facility] [address] [place] [address] Cardiology Consult Note Signed Patient: Juanita Redman MR#: [id number] : 1965 Acct:[id number] Age/Sex: 56 / F Adm Date: 2 Loc: Room: [address] [place] [address] Type: ADM IN Attending Dr: Claude Castellanos MD Copies to: DO Claude Rose MD Hassan M Ibrahim, MD, FACC~ Cardiology HPI History of Present Illness Consult Date: 12/07/21 Reason for Consult: Paroxysmal atrial fibrillation HPI: Ms. Redman is a 56 year old female who is being seen at the request of the hospitalist because of paroxysmal atrial fibrillation. Patient presented to [place] emergency department with syncopal event believed to [...] denies any complaints. While she was in [place] emergency department her high-sensitivitytroponin was elevated at [...] Lymph # (Auto) 0.6 L (1.00-4.8) x10E3/uL [place] # (Auto) 0.6 (0.0-0.8) x10E3/uL Eos # [...] ml @ 100.4 mls/hr IV DAILY [facility] Rx#:[id number] Thiamine 200 mg In Sodium 102 / 102 Chloride 0.9% 100 ml 100 ml @ 204 mls/hr IV TID [facility] Rx#: [id number] Oral 150 / 350 200 / 350 [...] failure, unspecified Documented By: Kylah Kingsley MD, [facility] 2 1649 Signed By: <Electronically signed by [facility] Kylah Kingsley> 12/07/21 1657 [facility] Work Phone: [phone]) 794-289308-30-2022 Progress note Author William Esposito [facility] December 07, 2021 10:38am Note Date/Time December 07, 2021 10 :34am [facility] [address] [place] [address] Nephrology Progress Note Signed Patient: Juanita Redman MR#: [id number] : 1965 Acct:[id number] Age/Sex: 56 / F Adm Date: 2 Loc: Room: [address] [place] [address] Type: ADM IN Attending Dr: Claude Castellanos MD Copies to: ~ Date of Service: 12/07/2021 Subjective Subjective Narrative: Mrs. Redman is a 56-year-old white female with history of COPD, smoker, alcohol abuse and hypothyroidism on levothyroxine who was transferred from [facility] on 12/04 for abnormal blood work showing [...] 1 g of calcium before transfer to [facility]. Today's creatinine is slightly better 1.87 mg/dL [...] visible mass Skin: No rashes or bruises OPTICAL MECHANIC: Awake,Alert, following simple command Musculoskeletal: No joint [...] 500 Mg Tablet) 500 mg PO BID.WITH.BFAST.LUNCH [facility] Stop: 12/05/22 07:59 Last Admin: 12/07/21 08:12 Dose: 500 mg Calcium Carbonate (Calcium Carbonate 500 Mg Tablet) 1,000 mg PO BID [facility] Stop: 12/06/22 09:29 Last Admin: 12/07/21 08:11 [...] 50.2 mls @ 100.4 mls/hr IV DAILY [facility] Stop: 12/04/22 13:59 Last Infusion: 12/07/21 09:30 Dose: Infused Thiamine HCl 200 mg/ Sodium (Chloride) 102 mls @ 204 mls/hr IV TID [facility] Stop: 12/04/22 21:59 Last Infusion: 12/07/21 09:17 Dose: Infused Levofloxacin (Levaquin) 750 mg in 150 mls @ 100 mls/hr IV Q48H [facility] Last Admin: 12/07/21 09:31 Dose: 100 mls/hr Sodium Bicarbonate 150 meq/ (Dextrose) 1,150 mls @ 100 mls/hr IV .[id number] [facility] Stop: 12/06/22 19:29 Last Admin: 12/06/21 20:18 Dose: 100 mls/hr Levothyroxine Sodium (Levothyroxine 50 Mcg Tablet) 50 mcg PO DAILY.0630 [facility] Stop: 12/05/22 06:29 Last Admin: 12/07/21 05:42 Dose: 50 mcg Metoprolol Succinate (Metoprolol Succinate 100 Mg Tab.Er.24h) 100 mg PO DAILY [facility] Stop: 12/04/22 17:43 Last Admin: 12/07/21 08:12 Dose: 100 mg Metoprolol Tartrate (Metoprolol Tartrate 5 Mg/5 Ml Vial) 5 mg IV-PUSH Q4H PRN PRN Reason: tachycardia Stop: 12/06/22 19:17 Nicotine (Nicotine Patch 21 Mg/24hr 1 Each Patch.Td24) 1 each TRANSDERML DAILY [facility] Stop: 12/06/22 08:59 Last Admin: 12/07/21 08:12 Dose: 1 each Omeprazole (Omeprazole 20 Mg Capsule.Dr) 20 mg PO DAILY [facility] Stop: 12/05/22 08:59 Last Admin: 12/07/21 08:12 [...] (400 Units) Tablet) 20 mcg PO BID.WITH.MEALS [facility] Stop: 12/07/22 07:59 Last Admin: 12/07/21 08:11 [...] Rossi Salinas M.D.12/06/2021 6:01 PM Dictation Location: [place] [address] Any impression(s) listed above is documentation that [...] signed by William Esposito MD> 12/07/21 1038 [facility] Work Phone: [phone]) [phone] Progress note Author Hong Mcintosh [facility] December 06, 2021 7:32pm Note Date/Time December 06, 2021 7: 32pm [facility] [address] [place] [address] Hospitalist Progress Note Signed Patient: Juanita Redman MR#: [id number] : 1965 Acct:[id number] Age/Sex: 56 / F Adm Date: 2 Loc: Room: [address] [place] [address] Type: ADM IN Attending Dr: Hong Mcintosh [...] that she reported were completed at the [facility]. Given her vasovagal syncope in the bathroom [...] 11:01 Dextrose IV 12/06/21 20:59 100 mls/hr .[id number] [facility] Administration Sodium Chloride 1,000 mls @ [...] 09:00 12/06/21 11:13 Omeprazole 20 Mg Capsule.Dr PO 12/05/22 08:59 Not Given DAILY [facility] Potassium [...] <Electronically signed by Hong Mcintosh DO> 12/06/211931 [facility] Work Phone: [phone] Consult note Author Rehan Isidro [facility] December 06, 2021 5:46pm Note Date/Time December 06, 2021 5: 46pm [facility] [address] [place] [address] Gastroenterology Consult Note Signed Patient: Juanita Redman MR#: [id number] : 1965 Acct:[id number] Age/Sex: 56 / F Adm Date: 2 Loc: 4P Room: 1A2046-2 Type: ADM IN Attending Dr: Hong Mcintosh [...] recorded. The patient was transferred to the [place] ER and admitted the day before yesterday [...] EGD and colonoscopy several years ago in [place]. She was told that she had a gastric polyp and a colon polyp. She has not had this rechecked. Hemoglobin did drop to 7.7 but is now 8.7. Stool for occult blood is negative. Blood counts show macrocytic indices with normal ferritin. Review of systems includes hypertension, hypothyroidism, history of SC, history of SVT. cc:: CC: Hong Mcintosh DO Review of Systems Review of Systems All other systems reviewed & are negative unless noted below or in HPI PMFSH Vaccinated for COVID-19?: No Medical History (Updated 12/06/21 @ 17:44 by Rehan Isidro MD) Alcohol abuse Anemia COPD (chronic obstructive [...] % (Auto) 62.7 Lymph % (Auto) 19.7 [place] % (Auto) 14.4 Eos % (Auto) 2.3 Baso % (Auto) 0.9 Neut # (Auto) 4.0 Lymph # (Auto) 1.3 [place] # (Auto) 0.9 H Eos # (Auto) [...] MPV Neut % (Auto) Lymph % (Auto) [place] % (Auto) Eos % (Auto) Baso % (Auto) Neut # (Auto) Lymph # (Auto) [place] # (Auto) Eos # (Auto) Baso # [...] anemia, unspecified Status: Acute Documented By: Rehan Isidro MD 12/06/211740 Signed By: <Electronically signed by MD Rehan Isidro> 12/06/211745 [facility] Work Phone: [phone] 376-459908-29-2022 Progress note Author William Esposito [facility] December 06, 2021 1:19pm Note Date/Time December 06, 2021 1: 19pm [facility] [address] [place] [address] Nephrology Progress Note Signed Patient: Juanita Redman MR#: [id number] : 1965 Acct:[id number] Age/Sex: 56 / F Adm Date: 2 Loc: Room: [address] [place] [address] Type: ADM IN Attending Dr: Hong Mcintosh DO Copies to: ~ Date of Service: 12/06/2021 Subjective Subjective Narrative: Mrs. Redman is a 56-year-old white female with history of COPD, smoker, alcohol abuse and hypothyroidism on levothyroxine who was transferred from [facility] on 12/04 for abnormal blood work showing [...] 1 g of calcium before transfer to [facility]. Today's creatinine is slightly better 1.87 mg/dL [...] visible mass Skin: No rashes or bruises OPTICAL MECHANIC: Awake,Alert, following simple command Musculoskeletal: No joint [...] BID.WITH.BFAST.LUNCH [facility] Stop: 12/05/22 07:59 Last Admin: 12/06/21 11:12 Dose: Not Given Calcium Carbonate (Calcium Carbonate 500 Mg Tablet) 1,000 mg PO BID [facility] Stop: 12/06/22 09:29 Last Admin: 12/06/21 11:13 Dose: Not Given Magnesium Sulfate (Magnesium Sulf 2gm-*Swfi*) 2 gm in 50 mls @ 25 mls/hr IV DAILY PRN PRN Reason: Magnesium Level < 1.5 Stop: 12/04/22 10:15 Folic Acid 1 mg/ Dextrose 50.2 mls @ 100.4 mls/hr IV DAILY [facility] Stop: 12/04/22 13:59 Last Admin: 12/06/21 11:00 Dose: 100 mls/hr Thiamine HCl 200 mg/ Sodium (Chloride) 102 mls @ 204 mls/hr IV TID [facility] Stop: 12/04/22 21:59 Last Admin: 12/05/21 22:05 Dose: 204 mls/hr Levofloxacin (Levaquin) 750 mg in 150 mls @ 100 mls/hr IV Q48H [facility] Last Admin: 12/05/21 09:17 Dose: 100 mls/hr Ferric Sodium Gluconate Complex 250 mg/ Sodium Chloride 270 mls @ 135 mls/hr IVQAM [facility] Stop: 12/09/21 08:59 Last Admin: 12/06/21 11:01 Dose: 135 mls/hr Sodium Bicarbonate 150 meq/ (Dextrose) 1,150 mls @ 100 mls/hr IV .[id number] [facility] Stop: 12/06/21 20:59 Last Admin: 12/06/21 11:01 Dose: 100 mls/hr Levothyroxine Sodium (Levothyroxine 50 Mcg Tablet) 50 mcg PO DAILY.0630 [facility] Stop: 12/05/22 06:29 Last Admin: 12/06/21 05:30 [...] 100 Mg Tab.Er.24h) 100 mg PO DAILY [facility] Stop: 12/04/22 17:43 Last Admin: 12/06/21 11:12 Dose: Not Given Nicotine (Nicotine Patch 21 Mg/24hr 1 Each Patch.Td24) 1 each TRANSDERML DAILY [facility] Stop: 12/06/22 08:59 Omeprazole (Omeprazole 20 Mg [...] <Electronically signed by William Esposito MD> 12/06/21 2859 [facility] Work Phone: [phone]) [phone] Progress note Author Hong Mcintosh [facility] December 05, 2021 5:23pm Note Date/Time December 05, 2021 5: 09pm [facility] [address] [place] [address] Hospitalist Progress Note Signed with Philippe Patient: Juanita Redman MR#: [id number] : 1965 Acct:[id number] Age/Sex: 56 / F Adm Date: 2 Loc: 3T Room: [address] [place] [address] Type: ADM IN Attending Dr: Hong Mcintosh [...] Lactated Ringer's IV 12/04/22 14:14 75 mls/hr .[id number] [facility] Administration Folic Acid 1 mg/ Dextrose [...] 12/04/22 17:43 100 mg DAILY [facility] Administration Omeprazole 20 mg 12/05/21 09:00 12/05/21 [...] or symptoms. Documented By: Hong Mcintosh DO 1707 Signed By: <Electronically signed by Hong Mcintosh DO> 12/05/21 1722 [facility] Work Phone: [phone] Consult note Author Nilesh Oakley [facility] December 05, 2021 2:55pm Note Date/Time December 05, 2021 2: 55pm [facility] [address] [place] [address] Nephrology Consult Note Signed Patient: Juanita Redman MR#: [id number] : 1965 Acct:[id number] Age/Sex: 56 / F Adm Date: 2 Loc: Room: [address] [place] [address] Type: ADM IN Attending Dr: Hong Mcintosh [...] hypothyroidism on levothyroxine who was transferred from [facility] on 12/04 for abnormal blood work showing [...] 1 g of calcium before transfer to [facility]. Today's creatinine is slightly better 1.87 mg/dL [...] 500 Mg Tablet) 500 mg PO BID.WITH.BFAST.LUNCH [facility] Stop: 12/05/22 07:59 Last Admin: 12/05/21 11:55 Dose: 500 mg Magnesium Sulfate (Magnesium Sulf 2gm-*Swfi*) 2 gm in 50 mls @ 25 mls/hr IV DAILY PRN PRN Reason: Magnesium Level < 1.5 Stop: 12/04/22 10:15 Potassium Chloride 20 meq/ (Lactated Ringer's) 1,010 mls @ 75 mls/hr IV .[id number] [facility] Stop: 12/04/22 14:14 Last Admin: 12/05/21 01:34 Dose: 75 mls/hr Folic Acid 1 mg/ Dextrose 50.2 mls @ 100.4 mls/hr IV DAILY [facility] Stop: 12/04/22 13:59 Last Admin: 12/05/21 09:17 Dose: 100 mls/hr Thiamine HCl 200 mg/ Sodium (Chloride) 102 mls @ 204 mls/hr IV TID [facility] Stop: 12/04/22 21:59 Last Admin: 12/05/21 09:17 Dose: 204 mls/hr Levofloxacin (Levaquin) 750 mg in 150 mls @ 100 mls/hr IV Q48H [facility] Last Admin: 12/05/21 09:17 Dose: 100 mls/hr Levothyroxine Sodium (Levothyroxine 50 Mcg Tablet) 50 mcg PO DAILY.0630 [facility] Stop: 12/05/22 06:29 Last Admin: 12/05/21 06:55 Dose: Not Given Metoprolol Succinate (Metoprolol Succinate 100 Mg Tab.Er.24h) 100 mg PO DAILY [facility] Stop: 12/04/22 17:43 Last Admin: 12/05/21 09:17 Dose: 100 mg Omeprazole (Omeprazole 20 Mg Capsule.Dr) 20 mg PO DAILY [facility] Stop: 12/05/22 08:59 Last Admin: 12/05/21 09:17 Dose: 20 mg Potassium Chloride (Potassium Chloride Er 20 Meq Tab.Er.Prt) 20 meq PO DAILY PRN PRN Reason: Hypokalemia Stop: 12/04/22 10:15 Potassium Chloride (Potassium Chloride Er 20 Meq Tab.Er.Prt) 40 meq PO DAILY PRN PRN Reason: Hypokalemia Stop: 12/04/22 10:15 Sodium Bicarbonate (Sodium Bicarbonate 650 Mg Tablet) 1,300 mg PO TID.WITH.MEALS [facility] Stop: 12/04/22 13:34 Last Admin: 12/05/21 11:55 [...] Cloudy A Urine pH 5.5 Ur Specific [place] 1.013 Urine Protein 30 H Urine Glucose [...] this. Documented By: Nilesh Oakley MD 12/05/21 1434 Signed By: <Electronically signed by MD Nilesh Oakley> 12/05/21 4245 [facility] Work Phone: [phone] History and physical note Author Hong Mcintosh [facility] December 04, 2021 9:07pm Note Date/Time December 04, 2021 9: 07pm [facility] [address] [place] [address] Hospitalist H&P Signed Patient: Juanita Redman MR#: [id number] : 1965 Acct:[id number] Age/Sex: 56 / F Adm Date: 2 Loc: Room: [address] [place] [address] Type: ADM IN Attending Dr: Hong Mcintosh DO Copies to: DO Hong Rose, ~ HPI DATE OF EXAMINATION: 12/04/21 CHIEF COMPLAINT: weakness, passing out, lightheadedness. HISTORY OF PRESENT ILLNESS: This is a 56-year-old woman who presented to the [place] emergency room yesterday evening with complaints of [...] supposed to come get established with a electrician third in [place]. She also was supposed to see a personal care aid because she has probably rheumatoid arthritis and she has had a rash on her back for many decades. She has a fullness in the supraclavicular regions on both right and the left side. She says that the [facility] told her that these were lipomas based [...] the age of 17. I gave her [id number] history. In terms of alcohol use she [...] except as mentioned elsewhere in the documentation. [facility] Vaccinated for COVID-19?: No Medical History (Updated [...] % (Auto) 13.0 % (.) 12/04/21 11:47 [place] % (Auto) 13.9 % (.) 12/04/21 11:47 Eos % (Auto) 1.2 % (.) 12/04/21 11:47 Baso % (Auto) 0.4 % (.) 12/04/21 11:47 Neut # (Auto) 4.5 x10E3/uL (1.8-7.7) 12/04/21 11:47 Lymph # (Auto) 0.8 x10E3/uL (1.00-4.8) L 12/04/21 11:47 [place] # (Auto) 0.9 x10E3/uL (0.0-0.8) H 12/04/21 [...] 2031 Signed By: <Electronically signed by Hong Mcintosh DO> 12/04/212106 [facility] Work Phone: Evaluation note* Diagnosis Onset Date [...] acute Urethral stenosis acute Vasovagal syncope acute [facility] Work Phone: Evaluation noteNo assessment information available [facility] Work Phone: Evaluation note* Diagnosis Onset Date Resolution Status GERD (gastroesophageal reflux disease) acute Hypertension acute Hypomagnesemia acute Hypothyroid acute Lupus acute Paroxysmal atrial fibrillation with RVR acute Rheumatoid arthritis acute Stress-induced cardiomyopathy acute Type 2 myocardial infarction acute [facility] Work Phone: Evaluation note* Diagnosis Onset Date [...] cardiomyopathy acute Type 2 myocardial infarction acute [facility] Work Phone: History general Narrative - Reported* Type Description Date Medical History COPD Medical History HYPOTHYROIDISM Medical History ALCOHOL ABUSE Medical History SMOKER Medical History ANEMIA Medical History HYPOMAGNESEMIA Medical History HYPOCALCEMIA Medical History HYDRONEPHROSIS Surgical History X 2 Surgical History D&C X2 Surgical History LUMPECTOMY ON BOTH BREAST Surgical History 2 HEART ABLASIONS Hospitalization History SEE ABOVE Hospitalization History DEHYDRATION 12/2021 [employer] Other Hospital Discharge instructions Additional Instructions Dietary recommendations: - Magic cup (or equivalent) twice daily with meals[facility] Work Phone: Hospital Discharge instructions Additional Instructions Follow-up with your primary care doctor Return to ED if develop worsening symptoms or concerns Take your medications as [facility] Work Phone: Hospital Discharge instructionsAmbulatory Orders* Referral to Cardiology Location: None Selected * Referral to Rheumatology Location: None Selected [facility] Work Phone: Hospital Discharge instructionsAmbulatory Orders* Referral to Cardiology Location: None Selected [facility] Work Phone: Summary Purpose Family History No Family History Records Found Relationship Condition Age at Onset Recorded Date/T [...] Unknown History of stroke Unknown Advance Directives No Advanced Directives Records Found Advance Directive Response Recorded Date/ Time Advance Directives No December 03, 2021 7:41pm Advance Directive Response Recorded Date/ Time Advance Directives No December 03, 2021 6:41pm Advance Directive Response Recorded Date/ Time Advance Directives No September 27 3:28pm Advance Directive Response Recorded Date/ Time Advance Directives No September 27 2:28pm Chief Complaint and Reason for Visit Chief [...] cardiomyopathy Type 2 myocardial infarction Chief Complaint Admit Date 3 month f/u December 27, 2023 2:30pm Unknown February 19, 2024 3:06pm Reason for Visit Admit Date Alcohol abuse December 27, 2023 2:30pm Breast enlargement December 27, 2023 2:30pm Breast skin changes December 27, 2023 2:30pm Frequent falls December 27, 2023 2:30pm GERD (gastroesophageal reflux disease) S eptember 2023 2:30pm Hypertension December 27, 2023 2:30pm Hypomagnesemia December 27, 2023 2:30pm Hypothyroid December 27, 2023 2:30pm Lupus December 27, 2023 2:30pm Noncompliance December 27, 2023 2:30pm Paroxysmal atrial fibrillation with RVR December 27, 2023 2:30pm Rheumatoid arthritis December 26 2:30pm Stress-induced cardiomyopathy December 27, 2023 2:30pm Type 2 myocardial infarction December 092023 2:30pm Weakness December 27, 2023 2:30pm Additional Source Comments INFORMATION SOURCE (unrecogn ized section and content) DATE CREATED AUTHOR 09/29/2017 [facility] DATE CREATED AUTHOR AUTHOR'S ORGANIZ ATION 01/07/2022 [facility] DATE CREATED AUTHOR AUTHOR'S ORGANIZ ATION [facility]20[facility] DATE CREATED AUTHOR AUTHOR'S ORGANIZ ATION 02/24/2024 [facility] Care Teams (unrecognized sec tion and content) Team Status: Inactive Member Role Status Dates Segundo Rawls DO Primary Care Provider Active Hong Mcintosh DO Admit Provider, Attending Pr ovider Active Rehan Isidro MD Other Provider Active Nilesh Oakley MD [...] Member Role Status Dates Segundo Rawls , DO Primary Care Provider Active Team Status: Inactive Member Role Status Dates Segundo Rawls , DO Primary Care Provider Active Caden Jarrell , DO Emergency Provider Active Team Status: Active Member Role Status Dates Katie Velasquez SECURITY AND PRIVACY CONSULTANT SAW REPAIRER-C Primary Care Provider Active Team Status: Inactive Member Role Status Dates Katie Velasquez SECURITY AND PRIVACY CONSULTANT SAW REPAIRER-C Primary Care Provider, Attending Provider Active Start: September 28, 2023 End: September 28, 2023 Team Status: Inactive Member Role Status Dates Katie Velasquez APRN SAW REPAIRER-C Primary Care Provider, Attending Provider Active Start: December 27, 2023 End: December 27, 2023 Team Status: Inactive Member Role Status Dates Katie Velasquez APRN SAW REPAIRER-C Primary Care Provider, Attending Provider Active Start: February 19, 2024 End: February 19, 2024 Goals (unrecognized section and content) Goals may be documented in a n alternate sectionNo InformationGoals may be documented in an alternate sectionGoals may be documented in an alternate sectionGoals [...] BE BASED ON THE PRIMARY CLINICAL RECORDS. [employer] provides no warranty or guarantee of the accuracy or completeness of information in this document.
--- NOTE | 2024-04-21 22:45 | XR_ITS ---
The [address] [address] Patient Name: ORESTES ALVARES MRN: [id number] date: 1965 Sex: F Assigned Patient Location: ER Current Patient Location: [place] Accession/Order Number: [id number] Exam Date: 04/21/2024 23:40 Report Date: 04/22/2024 04:43 At the request of: AYANNA MARKER Procedure: XR chest 1V EXAM: XR chest 1V HISTORY: SOB COMPARISON: Portable chest radiograph dated 02/14/2023. TECHNIQUE: AP erect portable chest radiograph performed. FINDINGS: Stable mild prominence of the cardiac silhouette. There is new opacity at the left lung base with the differential including pleural fluid, atelectasis and consolidation. There is no pulmonary vascular congestion. There is no pneumothorax or acute osseous abnormality. XR/XR chest 1V IMPRESSION: There is new opacity at the left lung base with the differential including pleural fluid, atelectasis and consolidation. Electronically authenticated by: SANDY SOLARES Date: 04/22/2024 04:43
--- NOTE | 2024-04-21 22:47 | ED.GENADUL1 ---
HPI HPI - General Adult General Chief complaint: Extremity Problem, Nontraumatic Stated complaint: SWELLING CANT WALK Time Seen by Provider: 04/21/24 22:31 Source: patient and family Mode of arrival: Wheelchair Limitations: no limitations History of Present Illness HPI narrative: This 59-year-old female with multiple medical problems including heart failure, kidney disease with stage IV kidney disease who sees Dr. Esposito, but admits that she has not seen him in a long time presents for evaluation of generalized swelling. The patient states since November she has had increasing swelling. She thinks she needs a catheter and Lasix. She has exertional dyspnea. She denies any specific chest pain. She states she has been having a hard time getting around at her house due to the swelling that she has from her feet to her face. She also has some sores on her feet and lower legs. She states she has a history of intermittent atrial fibrillation but is not on any blood thinners for it. She states she has been urinating normally but it is hard for her to get around at her house to get to the bathroom due to her swelling and sores on her feet. She does not then she has had a fever. She does not have any cough but does have exertional dyspnea. Related Data Home Medications ?Medication ?Instructions ?Recorded ?Confirmed cholecalciferol (vitamin D3) 125 5,000 unit PO DAILY PRN supplement 02/13/23 04/22/24 mcg (5,000 unit) capsule levothyroxine 100 mcg tablet 100 mcg PO DAILY 02/13/23 04/22/24 thiamine mononitrate (vit B1) 100 100 mg PO DAILY 02/13/23 04/22/24 mg tablet omeprazole 20 mg capsule,delayed 20 mg PO DAILY 01/25/24 04/22/24 release magnesium oxide 400 mg (241.3 mg 400 mg PO BID 04/22/24 04/22/24 magnesium) tablet metoprolol tartrate 100 mg tablet 150 mg PO DAILY 04/22/24 04/22/24 Previous Rx's ?Medication ?Instructions ?Recorded walker #1 ea 02/17/23 Allergies Allergy/AdvReac Type Severity Reaction Status Date / Time cephalexin (From Keflex) Allergy swelling Verified 02/19/24 14:43 prednisone Allergy swelling Verified 02/19/24 14:43 Opioid HPI Opioid Management Most Recent Opioid Data: Last Pain Scale 0 02/17/23 00:34 02/17/23 Ur Phencyclidine Scrn Negative (NEGATIVE) 02/13/23 05:25 02/13/23 Review of Systems ROS Status of ROS 10 or more systems reviewed and unremarkable except as noted in history and below PFSH PFSH Medical History GERD (gastroesophageal reflux disease) ?K21.9 - Gastro-esophageal reflux disease without esophagitis (ICD-10) Stomach ulcer ?K25.9 - Gastric ulcer, unspecified as acute or chronic, without hemorrhage or perforation (ICD-10) Sigmoid diverticulosis ?K57.30 - Diverticulosis of large intestine without perforation or abscess without bleeding (ICD-10) Caries involving multiple surfaces of tooth ?K02.9 - Dental caries, unspecified (ICD-10) Renal cyst, acquired, left ?N28.1 - Cyst of kidney, acquired (ICD-10) Anxiety and depression ?F41.9 - Anxiety disorder, unspecified (ICD-10) ?F32.A - Depression, unspecified (ICD-10) Hypothyroidism ?E03.9 - Hypothyroidism, unspecified (ICD-10) Atrial fibrillation ?I48.91 - Unspecified atrial fibrillation (ICD-10) Smoker ?F17.200 - Nicotine dependence, unspecified, uncomplicated (ICD-10) Hypertension ?I10 - Essential (primary) hypertension (ICD-10) Kidney failure ?N19 - Unspecified kidney failure (ICD-10) Alcohol abuse ?F10.10 - Alcohol abuse, uncomplicated (ICD-10) Surgical History (Updated 02/19/24 @ 15:56 by Melina Hernandez) History of endometrial ablation ?Z98.890 - Other specified postprocedural states (ICD-10) H/O section ?Z98.891 - History of uterine scar from previous surgery (ICD-10) Status post breast biopsy ?Z98.890 - Other specified postprocedural states (ICD-10) History of lumpectomy of both breasts ?Z98.890 - Other specified postprocedural states (ICD-10) S/P ablation of atrial fibrillation ?Z98.890 - Other specified postprocedural states (ICD-10) ?Z86.79 - Personal history of other diseases of the circulatory system (ICD-10) Family History (Updated 04/22/24 @ 01:06 by Deborah Hendricks) Father Family history of CHF (congestive heart failure) Family history of diabetes mellitus Family history of hypertension Family history of myocardial infarction Mother Family history of cancer Family history of diabetes mellitus Family history of hypertension Family history of myocardial infarction Brother Family history of hypertension Family history of myocardial infarction Other Family history of COPD (chronic obstructive pulmonary disease) Social History (Updated 04/22/24 @ 01:07 by Deborah Hendricks) Within the past year, how often did you have a drink containing alcohol: never Score interpretation: A score less than 3 is consistent with normal alcohol consumption. Smoking status: Current every day smoker Non-prescribed substance use: denies use Previous occupational history: retired Little interest or pleasure in doing things: not at all Feeling down, depressed, or hopeless: not at all Feel stressed/tense/nervous/anxious/difficulty sleeping: not at all Exam Narrative Exam Narrative: Vital signs and Nursing Notes reviewed: Patient is afebrile with a normal pulse, blood pressure is mildly elevated 157/93 and she is hypoxic with pulse ox of 91% on room air General: Awake, alert, oriented, overweight female with conversational dyspnea HEENT: Normocephalic atraumatic, mucous membranes are moist and pink, eyes are clear, normal conjunctiva, vision is grossly intact, posterior pharynx is normal in appearance. Neck: No anterior or posterior cervical lymphadenopathy, no JVD Chest: Diffusely diminished breath sounds with faint rales at bilateral bases CVS: Regular rate and rhythm consistent with atrial fibrillation in the 90s on exam ABD: Soft, nondistended, nontender, no rebound guarding or rigidity, bowel sounds are normal, no pulsatile masses appreciated Extremities: 3+ pitting edema bilateral lower extremities. There are areas of weeping of clear serous fluid on the right anterior lower leg. There is an open blister on her right posterior heel without signs of active infection. Skin: Pale with abnormal skin rash on the right lower extremity otherwise clean, dry with no petechia purpura or signs of infestation or infection Neuro: No focal deficits Constitutional Vital Signs, click to edit/add: Last Vital Signs Temp 97.8 F 04/21/24 22:30 Pulse 84 04/22/24 00:50 Resp 19 04/22/24 00:50 BP 157/93 H 04/21/24 22:34 Pulse Ox 91 L 04/21/24 22:34 O2 Del Method Room Air 04/21/24 22:30 Course Vital Signs Vital signs: Vital Signs Temperature 97.8 F 04/21/24 22:30 Pulse Rate 59 L 04/21/24 22:30 Respiratory Rate 16 04/21/24 22:30 Blood Pressure 157/93 H 04/21/24 22:30 Pulse Oximetry 91 L 04/21/24 22:30 Oxygen Delivery Method Room Air 04/21/24 22:30 Temperature 97.8 F 04/21/24 22:30 Pulse Rate 84 04/22/24 00:50 Respiratory Rate 19 04/22/24 00:50 Blood Pressure 157/93 H 04/21/24 22:34 Pulse Oximetry 91 L 04/21/24 22:34 Oxygen Delivery Method Room Air 04/21/24 22:30 Medical Decision Making MDM Narrative Medical decision making narrative: This 59-year-old female with a history of chronic renal disease and congestive heart failure presents for evaluation of fluid overload and inability to walk due to swelling in her legs and feet. She has 3+ pitting edema from her feet to her mid upper abdomen area. It is associated with mild shortness of breath. She does smoke. She states she has a history of atrial fibrillation but does not think she is always in atrial fibrillation. I did review her labs from February when she was admitted and she was in A-fib at that time. An EKG done upon arrival was A-fib at [address] changes. An IV was established and routine labs were ordered. She has a normal white count. Hemoglobin is mildly low at 9.5. Electrolytes are reviewed. CO2 is mildly low at 19.7. BUN is 18 and creatinine is 1.84 today. This is in keeping with her chronic renal insufficiency. She has had creatinines higher than this in the past. She has a normal troponin. Her BNP is markedly elevated greater than 35,000. She was given IV Lasix and a Rios catheter was placed at her request. She has some sores on her right lower extremity and a broken blister on her right heel. These do not appear to be infected and antibiotics were not instituted. She does have an elevated lactic acid of 2.8. I was unable to give her IV fluids due to her anasarca. Chest x-ray was ordered that shows cardiomegaly with questionable left lower lobe infiltrate but no sign of florid pulmonary edema. The case was discussed with the hospitalist and the patient is excepted for admission, [facility]. Medical Records Medical records reviewed: Yes I reviewed the patient's medical records Medical records narrative: Hx Afib on prior EKG from 03/03 Lab Data Lab results reviewed: Yes I reviewed the patient's lab results Labs: Lab Results 04/21/24 04/22/24 Range/Units 23:40 00:50 WBC 10.3 (4.0-11.0) 10^3/uL RBC 2.87 L (4.20-5.40) 10^6/uL Hgb 9.5 L (12.0-16.0) g/dL Hct 29.1 L (36.0-48.0) % MCV 101.4 H (81.0-99.0) fL MCH 33.1 (26.7-34.0) pg MCHC 32.6 (29.9-35.2) g/dL RDW 14.4 (11.0-15.0) % Plt Count 229 (150-450) 10^3/uL MPV 9.0 L (9.5-13.5) fL Neut % (Auto) 73.4 (43.0-75.0) % Lymph % (Auto) 14.1 L (20.5-60.0) % [place] % (Auto) 9.9 (1.7-12.0) % Eos % (Auto) 1.1 (0.9-7.0) % Baso % (Auto) 0.5 (0.2-2.0) % Neut # (Auto) 7.6 H (1.4-6.5) 10^3/uL Lymph # (Auto) 1.5 (1.2-3.8) 10^3/uL [place] # (Auto) 1.0 H (0.3-0.8) 10^3/uL Eos # (Auto) 0.1 (0.0-0.7) 10^3/uL Baso # (Auto) 0.1 (0.0-0.1) 10^3/uL Abs Immat Gran (auto) 0.10 H (0.00-0.03) 10^3/uL Imm/Tot Granulo (auto) 1.0 H (0.0-0.5) % Sodium 136 (136-145) mmol/L Potassium 3.7 (3.5-5.1) mmol/L Chloride 103 (98-107) mmol/L Carbon Dioxide 19.7 L (21.0-32.0) mmol/L Anion Gap 17.0 BUN 17.0 (7.0-18.0) mg/dL Creatinine 1.84 H (0.55-1.02) mg/dL Est GFR ( Amer) 34 L (>=60 mL/min/1.73m^2) Est GFR (Non-Af Amer) 28 L (>=60 mL/min/1.73m^2) BUN/Creatinine Ratio 9.2 Glucose 72 L (74-106) mg/dL Lactate 2.8 H* (0.4-2.0) mmol/L Calcium 7.7 L (8.5-10.1) mg/dL Total Bilirubin 0.6 (0.2-1.0) mg/dL AST 92 H (15-37) U/L ALT 25 (14-59) U/L Alkaline Phosphatase 215 H (46-116) U/L Troponin I High Sens 23.0 (4.0-51.3) pg/mL NT-Pro-B Natriuret Pep >02065.0 H* (<=900.0) pg/mL Total Protein 6.1 L (6.4-8.2) g/dL Albumin 2.0 L (3.4-5.0) g/dL Globulin 4.1 g/dL Albumin/Globulin Ratio 0.5 Urine Color Yellow (YELLOW) Urine Clarity Clear (CLEAR) Urine pH 6.0 (5.0-9.0) Ur Specific [place] >=1.030 A (1.005-1.025) Urine Protein 100 A (NEG/TRACE) mg/dL Urine Glucose (UA) Negative (NEGATIVE) mg/dL Urine Ketones Negative (NEGATIVE) mg/dL Urine Occult Blood Small A (NEGATIVE) Urine Nitrite Positive A (NEGATIVE) Urine Bilirubin Negative (NEGATIVE) Urine Urobilinogen 1.0 (0.2-1.0) EU/dL Ur Leukocyte Esterase Negative (NEGATIVE) ECG Data Attestation: I personally reviewed and interpreted this ECG as follows: (A-fib at 80 bpm, normal axis, low voltage, no acute ST segment elevation or T wave inversion) Discharge Plan Discharge Chief Complaint: Extremity Problem, Nontraumatic Clinical Impression: Fluid overload, Chronic renal disease, Atrial fibrillation, Congestive heart failure Patient Disposition: Admitted as Observation Time of Disposition Decision: 00:34 Condition: Fair
--- NOTE | 2024-04-21 23:06 | PC.NURSE ---
PT STATES HAS BEEN HAVING INCREASED SWELLING HEAD TO TOE SINCE NOVEMBER OF 2023. PT STATES THE SWELLING WAS INTERMITTENT BUT PAST 2 WEEK HAS NOT GONE DOWN AND HAS HAD WEEPING AT TIME. BUE AND BLE ARE VERY PAINFUL. SKIN FROM CHEST DOWN IF VERY TAUNT. HX LUPUS, RA, AND CHF
[2024-04-21 23:44] LABS: Basophils Absolute Auto 0.1 10^3/uL (0.0-0.1); Basophils Percent Auto 0.5 % (0.2-2.0); Eosinophils Absolute Auto 0.1 10^3/uL (0.0-0.7); Eosinophils Percent Auto 1.1 % (0.9-7.0); Hematocrit 29.1 % (36.0-48.0); Hemoglobin 9.5 g/dL (12.0-16.0); Lymphocytes Absolute Auto 1.5 10^3/uL (1.2-3.8); Lymphocytes Percent Auto 14.1 % (20.5-60.0); Mean Corpuscular HGB Conc 32.6 g/dL (29.9-35.2); Mean Corpuscular Hemoglobin 33.1 pg (26.7-34.0); Mean Corpuscular Volume 101.4 fL (81.0-99.0); Monocytes Percent Auto 9.9 % (1.7-12.0); Neutrophils Absolute Auto 7.6 10^3/uL (1.4-6.5); Neutrophils Percent Auto 73.4 % (43.0-75.0); Platelet Count 229 10^3/uL (150-450); Red Blood Count 2.87 10^6/uL (4.20-5.40); Red Cell Distribution Width 14.4 % (11.0-15.0); White Blood Count 10.3 10^3/uL (4.0-11.0)
[2024-04-22] VITALS (23 sets, daily range): BP systolic 122–164; BP diastolic 65–92; PULSE 63–100; TEMP 36.5–37; O2SAT 92–96; BMI 31.8
[2024-04-22] LABS: Alanine Aminotransferase 25 U/L (14-59); Albumin Globulin Ratio 0.5; Alkaline Phosphatase 215 U/L (46-116); Aspartate Amino Transferase 92 U/L (15-37); BUN Creatinine Ratio 9.2; Bilirubin Total 0.6 mg/dL (0.2-1.0); Calcium 7.7 mg/dL (8.5-10.1); Carbon Dioxide 19.7 mmol/L (21.0-32.0); Chloride 103 mmol/L (98-107); Estimated GFR (African America 34 (>=60 mL/min/1.73m^2); Estimated GFR (Non-African Ame 28 (>=60 mL/min/1.73m^2); Globulin 4.1 g/dL; Glucose 72 mg/dL (74-106); Potassium 3.7 mmol/L (3.5-5.1); Sodium 136 mmol/L (136-145); Total Protein 6.1 g/dL (6.4-8.2)
[2024-04-22 00:12] LABS: Lactate/Lactic Acid 2.8 mmol/L (0.4-2.0); NT Pro B Type Natriuretic Pept >35000.0 pg/mL (<=900.0)
[2024-04-22] MEDS: FUROSEMIDE 40 MG/4 ML VIAL IVP ×2 (00:45→21:34)
[2024-04-22 01:06] LABS: Bilirubin Urine NEGATIVE (NEGATIVE); Blood Urine SMALL (NEGATIVE); Clarity Urine CLEAR (CLEAR); Color Urine YELLOW (YELLOW); Glucose Urine UA NEGATIVE (NEGATIVE); Ketones Urine NEGATIVE (NEGATIVE); Leukocyte Esterase Urine NEGATIVE (NEGATIVE); Nitrite Urine POSITIVE (NEGATIVE); Protein Urine 100 mg/dL (NEG/TRACE); Specific Gravity Urine >=1.030 (1.005-1.025)
[2024-04-22 01:14] LABS: Bacteria Urine MODERATE #/HPF (NONE SEEN); Cast Seen? NONE SEEN #/LPF (NONE SEEN); Crystals Seen? None Seen #/HPF (None Seen); Mucus Urine NONE SEEN (NONE SEEN); RBC Urine 0-2 #/HPF (0-2); Squamous Epithelial Cell Urine RARE #/LPF (NONE/RARE); Urine Culture Indicated YES
--- OUTSIDE RECORDS SUMMARY | 2024-04-22 01:17 | XMS_ITS | CCD ---
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 Role Phone PHYSICIAN, DEFAULT Unavailable Unavailable PHYSICIAN, DEFAULT Unavailable Unavailable CASON, LASHA Unavailable Unavailable PHYSICIAN, DEFAULT Unavailable Unavailable PHYSICIAN, DEFAULT Unavailable Unavailable CASON, LASHA Unavailable Unavailable DO Segundo Rawls Primary Care Provider DO Hong Mcintosh Admit Provider DO Hong [...] Provider MD Lul Austin Jr Other Provider [phone] MD Jagruti Ugalde Other Provider MD Brad [...] Care Provider DO Caden Jarrell Emergency Provider [phone] Vaibhav, William Unavailable Katie Velasquez APRN Primary Care Provider Katie Velasquez APRN Attending Provider [phone] Katie Velasquez Attending Unavailable Katie Velasquez Primary Care Unavailable Katie Velasquez Admitting Unavailable Allergies Allergy Classification Reported Allergen(s) Allergy Type Date of Onset Reaction(s) Facility (2 sources) cephalexin; Translations: [KEFLEX] Drug Allergy 4 AOF [facility] Repository (9 sources) predniSONE; Translations: [PREDNISONE] Drug Allergy 5 Swelling [facility] Repository (7 sources) Cephalexin; Translations: [cephalexin] Drug Allergy 2 Nausea, Unknown [facility] Medications Current Medications Medication Drug Class(es) [...] Episodic Other aftercare (1 source) 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; Translations: [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] Onset: 12-21-2021 Episodic Other [...] By: Maury Schafer on 02-22-2024 Pathology study [facility] Other Phone: Kael 02-19-2024 L ------ Specimen: [id number] Received: 02/20/24 Status: MARCELO Morelos Num: [id number] Spec Type: Surgical Subm Dr: Cody Neves MD Tissues: A BREAST CORE NO CALCS (LEFT BREAST) Procedures: HE, Gross/Micro L4 Age/ Patient Sex Location Account Attending Physician Juanita Redman 59/F [place] [id number] Katie Velasquez APRN, SPEC NUM: [id number] RECD: 02/20/24 STATUS: MARCELO MORELOS NUM: [id number] LYNDSEY: 02/19/[address] [facility] [address]: Cody Neves MD ENTERED: 02/20/[address] [facility] [address]: Kim,Chinmay Velasquez APRN, STEEL DETAILER SPEC TYPE: Surgical DEPT: JUANIS PERES ENTERED BY: [id number] RECV BY: [id number] ORDERED: , Gross/Micro L4 ORDERED: , Gross/Micro [...] Time specimen placed in formalin: 1506 Specimen: [id number] Received: 02/20/24 Status: MARCELO Alemanbetzaida Num: [id number] Spec Type: Surgical Subm Dr: Cody Neves MD Tissues: A BREAST CORE NO CALCS (LEFT BREAST) Procedures: HE/4, Gross/Micro L4 Patient: Juanita Redman [id number] (Continued) Specimen: [id number] Received: 02/20/24 (Continued) Gross Description (Continued) Signed (signature on file) Maury Schafer MD 02/22/24 1036 Specimen: [id number] Received: 02/20/24 Status: MARCELO Alemanbetzaida Num: [id number] Spec Type: Surgical Subm Dr: Cody Neves MD Tissues: A BREAST CORE NO CALCS (LEFT BREAST) Procedures: /4, Gross/Micro L4 Patient: Juanita Redman [id number] (Continued) Specimen: [id number] Received: 02/20/24 (Continued) Gross Description (Continued) Cold ischemic time: 2 minutes Total fixation time: 26 hours and 30 minutes (2, ns, [id number] A) VIVIEN Microscopic Description Microscopic examination is performed. CPT Codes 48290 Specimen: [id number] Received: 02/20/24943 Status: MARCELO Morelos Num: [id number] Spec Type: Surgical Subm Dr: Cody Neves MD Tissues: A BREAST CORE NO CALCS (LEFT BREAST) Procedures: Lilibeth DOVER/John L4 Patient: Juanita Redman [id number] (Continued) Signed (signature on file) Maury Schafer MD 02/22/24 1036 Normal [facility] Activated partial thrombopla stin time (aPTT) in platelet poor plasma by coagulation aOrdered By: Caden Jarrell on 03-15-2022 aPTT Coag (PPP) [Time] 30.8 s 25.1-36.5 [facility] Basophils Auto (Bld) [#/Vol] Ordered By: Caden Jarrell on 03-15-2022 Basophils (Bld) [#/Vol] 0.1 10*3/uL 0.0-0.2 [facility] Basophils/100 WBC Auto (Bld) Ordered By: Caden Jarrell on 03-15-2022 Basophils/100 WBC (Bld) 0.9 % . [facility] Creatine kinase [Enzymatic a ctivity/volume] in Serum or PlasmaOrdered By: Caden Jarrell on 03-15-2022 CK [Catalytic activity/Vol] 33 U/L 22-269 [facility] Creatinine and Glomerular fi ltration rate.predicted panel (S/P/Bld)Ordered By: Caden Jarrell on 03-15-2022 Creatinine [Mass/Vol] 1.34 mg/dL 0.44-1.03 [facility] Eosinophils Auto (Bld) [#/Vo l]Ordered By: Caden Jarrell on 03-15-2022 Eosinophils (Bld) [#/Vol] 0.0 10*3/uL 0.0-0.45 [facility] Eosinophils/100 WBC Auto (Bl d)Ordered By: Caden Jarrell on 03-15-2022 Eosinophils/100 WBC (Bld) 0.2 % . [facility] Erythrocyte distribution wid th Auto (RBC) [Ratio]Ordered By: Caden Jarrell on 03-15-2022 Erythrocyte distribution width (RBC) [Ratio] 13.6 % 11.9-15.3 [facility] Estimated glomerular filtrat ion rate (GFR) non- AmericanOrdered By: Caden Jarrell on 03-15-2022 GFR/1.73 sq M.predicted among non-blacks MDRD (S/P/Bld) [Vol rate/Area] 40 mL/Min [facility] Hematocrit Auto (Bld) [Volum e fraction]Ordered By: Caden Jarrell on 03-15-2022 Hematocrit (Bld) [Volume fraction] 31.6 % 34.0-46.4 [facility] Hemoglobin [Mass/volume] in BloodOrdered By: Caden Jarrell on 03-15-2022 Hemoglobin (Bld) [Mass/Vol] 11.0 g/dL 11.8-15.4 [facility] Laboratory - Chemistry and C hemistry - challengeOrdered By: Caden Jarrell on 03-15-2022 Natriuretic peptide B (Bld) [Mass/Vol] 1767.0 pg/mL 5-100 [facility] Laboratory - CoagulationOrde red By: Caden Jarrell on 03-15-2022 PT Coag (PPP) [Time] 13.2 s 9.0-12.9 [facility] Leukocytes [#/volume] correc maxi for nucleated erythrocytes in Blood by Automated counOrdered By: Caden Jarrell on 03-15-2022 WBC corrected for nucl RBC Auto (Bld) [#/Vol] 7.8 10*3/uL 3.8-11.6 [facility] Lymphocytes Auto (Bld) [#/Vo l]Ordered By: Caden Jarrell on 03-15-2022 Lymphocytes (Bld) [#/Vol] 0.8 10*3/uL 1.00-4.8 [facility] Lymphocytes/100 WBC Auto (Bl d)Ordered By: Caden Jarrell on 03-15-2022 Lymphocytes/100 WBC (Bld) 10.6 % . [facility] MCH Auto (RBC) [Entitic mass ]Ordered By: Caden Jarrell on 03-15-2022 MCH (RBC) [Entitic mass] 32.1 pg 24.7-34.3 [facility] MCHC Auto (RBC) [Mass/Vol]Or dered By: Caden Jarrell on 03-15-2022 MCHC (RBC) [Mass/Vol] 34.7 g/dL 32.0-35.0 [facility] MCV Auto (RBC) [Entitic vol] Ordered By: Caden Jarrell on 03-15-2022 MCV (RBC) [Entitic vol] 92.3 fL 80-100 [facility] Monocyte distribution width [Entitic volume] in Blood by AutomatedOrdered By: Caden Jarrell on 03-15-2022 Monocyte distribution width Auto (Bld) [Entitic vol] 19.45 % 0.00-20.00 [facility] Monocytes Auto (Bld) [#/Vol] Ordered By: Caden Jarrell on 03-15-2022 Monocytes (Bld) [#/Vol] 0.8 10*3/uL 0.0-0.8 [facility] Monocytes/100 WBC Auto (Bld) Ordered By: Caden Jarrell on 03-15-2022 Monocytes/100 WBC (Bld) 10.2 % . [facility] Neutrophils Auto (Bld) [#/Vo l]Ordered By: Caden Jarrell on 03-15-2022 Neutrophils (Bld) [#/Vol] 6.1 10*3/uL 1.8-7.7 [facility] Neutrophils/100 WBC Auto (Bl d)Ordered By: Caden Jarrell on 03-15-2022 Neutrophils/100 WBC (Bld) 78.1 % . [facility] No Panel InformationOrdered By: Caden Jarrell on 03-15-2022 Estimated GFR () 49 mL/Min [facility] Comment on above: GFR estimated refere nce range: According to KDOQI guidelines, <60 ml/min/1.73m2 is sufficient to diagnose a patient with chronic kidney disease. Pharmacy Creatinine Clearance (Chem 43.20 [facility] Nucleated erythrocytes [Pres ence] in Blood by Automated countOrdered By: Caden Jarrell on 03-15-2022 Nucleated RBC Auto Ql (Bld) 0.1 /100{WBC} 0-0.5 [facility] Platelet mean volume Auto (B ld) [Entitic vol]Ordered By: Caden Jarrell on 03-15-2022 Platelet mean volume (Bld) [Entitic vol] 7.1 fL 6.3-10.7 [facility] Platelet poor plasma interna tional normalized ratio (INR) by coagulation assay (relatOrdered By: Caden Jarrell on 03-15-2022 INR Coag (PPP) [Relative time] 1.2 {INR} [facility] Comment on above: INR Therapeutic Rang [...] 03-15-2022 Platelets (Bld) [#/Vol] 277 10*3/uL 150-450 [facility] RBC Auto (Bld) [#/Vol]Ordere d By: Caden Jarrell on 03-15-2022 RBC (Bld) [#/Vol] 3.43 10*6/uL 3.60-5.[address] [facility] Serum or plasma anion gap de terminationOrdered By: Caden Jarrell on 03-15-2022 Anion gap [Moles/Vol] 14.5 mmol/L 6.0-15.0 [facility] Serum or plasma calcium sigifredo urement (mass/volume)Ordered By: Caden Jarrell on 03-15-2022 Calcium [Mass/Vol] 9.3 mg/dL 8.2-10.2 [facility] Serum or plasma chloride matti surement (moles/volume)Ordered By: Caden Jarrell on 03-15-2022 Chloride [Moles/Vol] 95 mmol/L 95-114 [facility] Serum or plasma creatine kin ase MB (CKMB)/total creatine kinase (CK) ratio by calculaOrdered By: Caden Jarrell on 03-15-2022 CK.MB Calc [Catalytic fraction] 5.1 % 0.00-2.50 [facility] Serum or plasma creatine kin ase MB measurement (mass/volume)Ordered By: Caden Jarrell on 03-15-2022 CK.MB [Mass/Vol] 1.7 ng/mL 0.6-6.[address] [facility] Serum or plasma glucose sigifredo urement (mass/volume)Ordered By: Caden Jarrell on 03-15-2022 Glucose [Mass/Vol] 129 mg/dL 70-100 [facility] Comment on above: ADA recommended refe rence rangeRandom Glucose Reference Range is dependent on time and content of last meal. Glucose of more than 200 mg/dL in a nonstressed, ambulatory subject supports the diagnosis of Diabetes Mellitus. Serum or plasma potassium me asurement (moles/volume)Ordered By: Caden Jarrell on 03-15-2022 Potassium [Moles/Vol] 3.4 mmol/L 3.5-5.1 [facility] Serum or plasma sodium measu rement (moles/volume)Ordered By: Caden Jarrell on 03-15-2022 Sodium [Moles/Vol] 129 mmol/L 136-146 [facility] Serum or plasma total carbon dioxide measurement (moles/volume)Ordered By: Caden Jarrell on 03-15-2022 CO2 [Moles/Vol] 22.9 mmol/L 22.0-30.[address] [facility] Serum or plasma urea nitroge n measurement (mass/volume)Ordered By: Caden Jarrell on 03-15-2022 Urea nitrogen [Mass/Vol] 14 mg/dL 9- [facility] Troponin I.cardiac [Mass/vol ume] in Serum or Plasma by High sensitivity methodOrdered By: Caden Jarrell on 03-15-2022 Troponin I.cardiac High sensitivity method [Mass/Vol] 24 pg/mL 0-15 [facility] WBC Auto (Bld) [#/Vol]Ordere d By: Caden Jarrell on 03-15-2022 WBC (Bld) [#/Vol] 7.8 10*3/uL 3.8-11.6 [facility] CBC AUTO DIFFon 12-19-2021 BASO # 0.0 103/ul Normal 0.0-0.1 [facility] Comment on above: Performed By: #### H STROPN #### [facility] [address] [address] [address] Debra Blake Basophils/100 WBC (Bld) 0.5 % Normal 0.2-2.0 [facility] Comment on above: Performed By: #### H STROPN #### [facility] [address] [address] [address] Debra Blake EO # 0.1 103/ul Normal 0.0-0.7 [facility] Comment on above: Performed By: #### H STROPN #### [facility] [address] [place] [address] Dr. Debra Blake Eosinophils/100 WBC (Bld) 1.4 % Normal 0.9-7.0 [facility] Comment on above: Performed By: #### H STROPN #### [facility] [address] [place] [address] Dr. Debra Blake Erythrocyte distribution width (RBC) [Ratio] 14.1 % Normal 11.0-15.0 [facility] Comment on above: Performed By: #### H STROPN #### [facility] [address] [place] [address] Dr. Debra Blake Hematocrit (Bld) [Volume fraction] 26.2 % Critically low 36.0-48.0 [facility] Comment on above: Performed By: #### H STROPN #### [facility] [address] [place] [address] Dr. Debra Blake Hemoglobin (Bld) [Mass/Vol] 9.1 g/dL Critically low 12.0-16.0 [facility] Comment on above: Performed By: #### H STROPN #### [facility] [address] [place] [address] Dr. Debra Blake IG # 0.03 10e3/ul Normal 0.00-0.03 [facility] Comment on above: Performed By: #### H STROPN #### [facility] [address] [place] [address] Dr. Debra Blake IG % 0.4 % Normal 0.0-0.5 [facility] Comment on above: Performed By: #### H STROPN #### [facility] [address] [place] [address] Dr. Debra Blake LYMPH # 1.5 103/ul Normal 1.2-3.8 [facility] Comment on above: Performed By: #### H STROPN #### [facility] [address] [place] [address] Dr. Debra Blake Lymphocytes/100 WBC (Bld) 19.0 % Critically low 20.5-60.0 [facility] Comment on above: Performed By: #### H STROPN #### [facility] [address] [place] [address] Dr. Debra Blake MANUAL DIFF REQ NO Normal [facility] Comment on above: Performed By: #### H STROPN #### [facility] [address] [place] [address] Dr. Debra Blake MCH (RBC) [Entitic mass] 34.3 pg Critically high 26.7-3 4.0 [facility] Comment on above: Performed By: #### H STROPN #### [facility] [address] [place] [address] Dr. Debra Blake MCHC (RBC) [Mass/Vol] 34.7 g/dL Normal 29.9-35.2 [facility] Comment on above: Performed By: #### H STROPN #### [facility] [address] [place] [address] Dr. Debra Blake MCV (RBC) [Entitic vol] 98.9 fL Normal 81.0-99.0 [facility] Comment on above: Performed By: #### H STROPN #### [facility] [address] [place] [address] Dr. Debra Blake MONO # 0.8 103/ul Normal 0.3-0.8 [facility] Comment on above: Performed By: #### H STROPN #### [facility] [address] [place] [address] Dr. Debra Blake Monocytes/100 WBC (Bld) 10.0 % Normal 1.7-12.0 [facility] Comment on above: Performed By: #### H STROPN #### [facility] [address] [place] [address] Dr. Debra Blake NEUT # 5.5 103/ul Normal 1.4-6.5 [facility] Comment on above: Performed By: #### H STROPN #### [facility] [address] [place] [address] Dr. Debra Blake Neutrophils/100 WBC (Bld) 68.7 % Normal 43.0-75.0 [facility] Comment on above: Performed By: #### H STROPN #### [facility] [address] [place] [address] Dr. Debra Blake Platelet mean volume (Bld) [Entitic vol] 9.5 fL Normal 9.5-13.5 [facility] Comment on above: Performed By: #### H STROPN #### [facility] [address] [place] [address] Dr. Debra Blake PLT 300 103/ul Normal 150-450 [facility] Comment on above: Performed By: #### H STROPN #### [facility] [address] [place] [address] Dr. Debra Blake RBC 2.65 106/ul Critically low 4.20-5.40 [facility] Comment on above: Performed By: #### H STROPN #### [facility] [address] [place] [address] Dr. Debra Blake WBC 8.1 103/ul Normal 4.0-11.0 [facility] Comment on above: Performed By: #### H STROPN #### [facility] [address] [place] [address] Dr. Debra Blake [facility]09 SARS-CoV-2 (COVID-19) RNA YVONNE+probe Ql (Unsp spec) Not detected Normal NOT DETECTED [facility] Comment on above: Result Comment: When [...] for this test is supported by the [place] of Health and Human Service's declaration that [...] used). Performed By: #### C VDTB #### [facility] [address] [place] [address] Dr. Debra Blake ER URINE PROFILEon 2 Bilirubin Ql (U) Negative Normal NEGATIVE [facility] Comment on above: Performed By: #### H STROPN #### [facility] [address] [place] [address] Dr. Debra Blake Clarity (U) CLEAR Normal CLEAR [facility] Comment on above: Performed By: #### H STROPN #### [facility] [address] [place] [address] Dr. Debra Blake Color (U) LT. YELLOW Normal YELLOW [facility] Comment on above: Performed By: #### H STROPN #### [facility] [address] [place] [address] Dr. Debra Blake ERUAHD A micrscopic examina tion will be performed if indicated. Normal [facility] Comment on above: Performed By: #### H STROPN #### [facility] [address] [place] [address] Dr. Debra Blake Glucose Ql (U) Negative Normal NEGATIVE [facility] Comment on above: Performed By: #### H STROPN #### [facility] [address] [place] [address] Dr. Debra Blake Hemoglobin Ql (U) Negative Normal NEGATIVE [facility] Comment on above: Performed By: #### H STROPN #### [facility] [address] [place] [address] Dr. Debra Blake Ketones Ql (U) Negative Normal NEGATIVE [facility] Comment on above: Performed By: #### H STROPN #### [facility] [address] [place] [address] Dr. Debra Blake LEUKOCYTES Negative Normal NEGATIVE [facility] Comment on above: Performed By: #### H STROPN #### [facility] [address] [place] [address] Dr. Debra Blake Nitrite Ql (U) Negative Normal NEGATIVE [facility] Comment on above: Performed By: #### H STROPN #### [facility] [address] [place] [address] Dr. Debra Blake pH (U) 7.0 [pH] Normal 5-9 [facility] Comment on above: Performed By: #### H STROPN #### [facility] [address] [place] [address] Dr. Debra Blake SPEC GRAVITY 1.010 Normal 1.005-<=1. 025 [facility] Comment on above: Performed By: #### H STROPN #### [facility] [address] [place] [address] Dr. Debra Blake UA PROTEIN TRACE Normal NEGATIVE/ TRACE [facility] Comment on above: Performed By: #### H STROPN #### [facility] [address] [place] [address] Dr. Debra Blake UR MICRO IND NOT INDICATED Normal [facility] Comment on above: Performed By: #### H STROPN #### [facility] [address] [place] [address] Dr. Debra Blake Urobilinogen Qn (U) 0.2 {Pascale'U}/dL Normal 0.2 - 1. 0 [facility] Comment on above: Performed By: #### H STROPN #### [facility] [address] [place] [address] Dr. Debra Blake ETHANOL (BLD ALC)on 12-20-19 ALC NOTE NOTE: 80 mg/dl is th e legal limit for a blood alcohol level Normal [facility] Comment on above: Performed By: #### E TH #### [facility] [address] [place] [address] Dr. Debra Blake Ethanol [Mass/Vol] mg/dL Normal [facility] Comment on above: Performed By: #### E TH #### [facility] [address] [place] [address] Dr. Debra Blake PROF CHEM 8 (BAS METB)on Anion gap [Moles/Vol] 14.8 mmol/L Normal [facility] Comment on above: Performed By: #### H STROPN, CMP #### [facility] [address] [place] [address] Dr. Debra Blake Calcium [Mass/Vol] 7.6 mg/dL Critically low 8.5-10.1 [facility] Comment on above: Performed By: #### H STROPN, CMP #### [facility] [address] [address] [address] Debra Blake Chloride [Moles/Vol] 93 mmol/L Critically low 98-107 [facility] Comment on above: Performed By: #### H STROPN, CMP #### [facility] [address] [place] [address] Dr. Debra Blake CO2 [Moles/Vol] 30.6 mmol/L Normal 21.0-32.0 [facility] Comment on above: Performed By: #### H STROPN, CMP #### [facility] [address] [address] [address] Debra Blake Creatinine [Mass/Vol] 2.27 mg/dL Critically high 0.55-1.02 [facility] Comment on above: Performed By: #### H STROPN, CMP #### [facility] [address] [place] [address] Dr. Debra Blake EGFR-AF BURMESE 27 mL/min/1.73m2 Critically low >=60 [facility] Comment on above: Performed By: #### H STROPN, CMP #### [facility] [address] [address] [address] Debra Blake EGFR-NON AF BURMESE 22 mL/min/1.73m2 Critically low >=60 [facility] Comment on above: Performed By: #### H STROPN, CMP #### [facility] [address] [address] [address] Debra Blake Glucose [Mass/Vol] 114 mg/dL Critically high 74-106 [facility] Comment on above: Performed By: #### H STROPN, CMP #### [facility] [address] [address] [address] Debra Blake Potassium [Moles/Vol] 3.4 mmol/L Critically low 3.5-5.1 [facility] Comment on above: Performed By: #### H STROPN, CMP #### [facility] [address] [address] [address] Debra Blake Sodium [Moles/Vol] 135 mmol/L Critically low 136-145 [facility] Comment on above: Performed By: #### H STROPN, CMP #### [facility] [address] [address] [address] Debra Blake Urea nitrogen [Mass/Vol] 20.0 mg/dL Critically high 7.0-18 .0 [facility] Comment on above: Performed By: #### H STROPN, CMP #### [facility] [address] [address] [address] Debra Blake Urea nitrogen/Creatinine [Mass ratio] 8.8 mg/mg Normal [facility] Comment on above: Performed By: #### H STROPN, CMP #### [facility] [address] [address] [address] Debra Blake TROPONIN, HIGH SENSITIVITYon 12-19-2021 HSTROP 16.7 pg/mL Normal 4.0-51.3 [facility] Comment on above: Result Comment: CUT- OFF POINTS HAVE BEEN ESTABLISHED BASED ON THE FOURTH UNIVERSAL DEFINITIONS OF MYOCARDIAL INFARCTION. THE UPPER REFERENCE LIMIT (URL) OF TROPONIN, DEFINED THE 99TH PERCENTILE OF cTnI DISTRIBUTION IN A REFERENCE POPULATION, HAS BEEN CONFIRMED THE DECISION THRESHOLD FOR DE DIAGNOSIS. Performed By: #### H STROPN #### [facility] [address] [address] [address] Debra Blake XR CHEST 1 Von [...] by: DENISE MESSER Date: 2021-12-19 15:57 Normal [facility] Consultation Noteon 12-16-19 Consultation Note [id number]#1.00CD:127 Normal [facility] RAD - CT Reporton 12-15-2021 RAD - CT Report [id number]#1.00CD:127 Normal [facility] Basophils Auto (Bld) [#/Vol] Ordered By: Hong Mcintosh on 12-10-2021 Basophils (Bld) [#/Vol] 0.1 10*3/uL 0.0-0.2 [facility] Basophils/100 WBC Auto (Bld) Ordered By: Hong Mcintosh on 12-10-2021 Basophils/100 WBC (Bld) 0.9 % . [facility] Blood hemoglobin measurement (mass/volume)Ordered By: Hong Mcintosh on 12-10-2021 Hemoglobin (Bld) [Mass/Vol] 7.5 g/dL 11.8-15.4 [facility] Blood leukocytes automated c ount (number/volume)Ordered By: Hong Mcintosh on 12-10-2021 WBC (Bld) [#/Vol] 6.3 10*3/uL 4.5-11.0 [facility] Creatinine and Glomerular fi ltration rate.predicted panel (S/P/Bld)Ordered By: Hong Mcintosh on 12-10-2021 Creatinine [Mass/Vol] 1.84 mg/dL 0.44-1.03 [facility] Eosinophils Auto (Bld) [#/Vo l]Ordered By: Hong Mcintosh on 12-10-2021 Eosinophils (Bld) [#/Vol] 0.2 10*3/uL 0.0-0.45 [facility] Eosinophils/100 WBC Auto (Bl d)Ordered By: Hong Mcintosh on 12-10-2021 Eosinophils/100 WBC (Bld) 3.5 % . [facility] Erythrocyte distribution wid th Auto (RBC) [Ratio]Ordered By: Hong Mcintosh on 12-10-2021 Erythrocyte distribution width (RBC) [Ratio] 16.3 % 11.9-15.3 [facility] Estimated glomerular filtrat ion rate (GFR) non- AmericanOrdered By: Hong Mcintosh on 12-10-2021 GFR/1.73 sq M.predicted among non-blacks MDRD (S/P/Bld) [Vol rate/Area] 28 mL/Min [facility] Hematocrit Auto (Bld) [Volum e fraction]Ordered By: Hong Mcintosh on 12-10-2021 Hematocrit (Bld) [Volume fraction] 22.8 % 34.0-46.4 [facility] Laboratory - Chemistry and C hemistry - challengeOrdered By: Hong Mcintosh on 12-10-2021 Magnesium [Mass/Vol] 0.7 mg/dL 1.6-2.6 [facility] Comment on above: Results called at 0825 on 12/10/21 Laboratory - Hematology and Cell countsOrdered By: Hong Mcintosh on 12-10-2021 Nucleated RBC/100 WBC (Bld) [Ratio] 0.0 % 0-0.5 [facility] Lymphocytes Auto (Bld) [#/Vo l]Ordered By: Hong Mcintosh on 12-10-2021 Lymphocytes (Bld) [#/Vol] 1.4 10*3/uL 1.00-4.8 [facility] Lymphocytes/100 WBC Auto (Bl d)Ordered By: Hong Mcintosh on 12-10-2021 Lymphocytes/100 WBC (Bld) 21.7 % . [facility] MCH Auto (RBC) [Entitic mass ]Ordered By: Hong Mcintosh on 12-10-2021 MCH (RBC) [Entitic mass] 34.3 pg 24.7-34.3 [facility] MCHC Auto (RBC) [Mass/Vol]Or dered By: Hong Mcintosh on 12-10-2021 MCHC (RBC) [Mass/Vol] 33.0 g/dL 32.0-35.0 [facility] MCV Auto (RBC) [Entitic vol] Ordered By: Hong Mcintosh on 12-10-2021 MCV (RBC) [Entitic vol] 103.8 fL 80-100 [facility] Monocytes Auto (Bld) [#/Vol] Ordered By: Hong Mcintosh on 12-10-2021 Monocytes (Bld) [#/Vol] 0.7 10*3/uL 0.0-0.8 [facility] Monocytes/100 WBC Auto (Bld) Ordered By: Hong Mcintosh on 12-10-2021 Monocytes/100 WBC (Bld) 11.2 % . [facility] Neutrophils Auto (Bld) [#/Vo l]Ordered By: Hong Mcintosh on 12-10-2021 Neutrophils (Bld) [#/Vol] 3.9 10*3/uL 1.8-7.7 [facility] Neutrophils/100 WBC Auto (Bl d)Ordered By: Hong Mcintosh on 12-10-2021 Neutrophils/100 WBC (Bld) 62.7 % . [facility] No Panel InformationOrdered By: Hong Mcintosh on 12-10-2021 Estimated GFR () 34 mL/Min [facility] Comment on above: GFR estimated refere nce range: According to KDOQI guidelines, <60 ml/min/1.73m2 is sufficient to diagnose a patient with chronic kidney disease. Pharmacy Creatinine Clearance (Chem 36.70 [facility] Platelet mean volume Auto (B ld) [Entitic vol]Ordered By: Hong Mcintosh on 12-10-2021 Platelet mean volume (Bld) [Entitic vol] 6.7 fL 6.3-10.7 [facility] Platelets Auto (Bld) [#/Vol] Ordered By: Hong Mcintosh on 12-10-2021 Platelets (Bld) [#/Vol] 356 10*3/uL 150-450 [facility] RBC Auto (Bld) [#/Vol]Ordere d By: Hong Mcintosh on 12-10-2021 RBC (Bld) [#/Vol] 2.20 10*6/uL 3.60-5.[address] [facility] Serum or plasma anion gap de terminationOrdered By: Hong Mcintosh on 12-10-2021 Anion gap [Moles/Vol] TNP [facility] Comment on above: Test not performed Serum or plasma calcium sigifredo urement (mass/volume)Ordered By: Hong Mcintosh on 12-10-2021 Calcium [Mass/Vol] 9.0 mg/dL 8.2-10.2 [facility] Serum or plasma chloride matti surement (moles/volume)Ordered By: Hong Mcintosh on 12-10-2021 Chloride [Moles/Vol] 104 mmol/L 95-114 [facility] Serum or plasma glucose sigifredo urement (mass/volume)Ordered By: Hong Mcintosh on 12-10-2021 Glucose [Mass/Vol] 137 mg/dL 70-100 [facility] Comment on above: ADA recommended refe rence range Random Glucose Reference Range is dependent on time and content of last meal. Glucose of more than 200 mg/dL in a nonstressed, ambulatory subject supports the diagnosis of Diabetes Mellitus. Serum or plasma potassium me asurement (moles/volume)Ordered By: Hong Mcintosh on 12-10-2021 Potassium [Moles/Vol] 4.7 mmol/L 3.5-5.1 [facility] Serum or plasma sodium measu rement (moles/volume)Ordered By: Hong Mcintosh on 12-10-2021 Sodium [Moles/Vol] 131 mmol/L 136-146 [facility] Serum or plasma total carbon dioxide measurement (moles/volume)Ordered By: Hong Mcintosh on 12-10-2021 CO2 [Moles/Vol] 21.1 mmol/L 22.0-30.[address] [facility] Serum or plasma urea nitroge n measurement (mass/volume)Ordered By: Hong Mcintosh on 12-10-2021 Urea nitrogen [Mass/Vol] 21 mg/dL 9-23 [facility] Serum DNA double strand anti body assay (units/volume)Ordered By: William Esposito on 12-09-2021 DNA double strand Ab Qn (S) [IU]/mL 0-9 [facility] Comment on above: Negative <5 Equivocal 5 - 9 Positive >9 Performed at: [facility] [id number] Paleology Teacher: Sanford Mehta PhD, Phone: [phone] Albumin [Mass/volume] in Ser um or PlasmaOrdered By: William Esposito on 12-07-2021 Albumin [Mass/Vol] 2.6 g/dL 2.9-4.4 [facility] Albumin/Protein.total in 24 hour Urine by ElectrophoresisOrdered By: William Esposito on 12-07-2021 Albumin Elph (24H U) [Mass fraction] 69.2 % . [facility] Creatinine [Mass/volume] in UrineOrdered By: William Esposito on 12-07-2021 Creatinine (U) [Mass/Vol] 153.0 mg/dL [facility] Comment on above: No reference range e stablished Gamma globulin/Protein.total in 24 hour Urine by ElectrophoresisOrdered By: William Esposito on 12-07-2021 Gamma globulin Elph (24H U) [Mass fraction] 8.2 % . [facility] IgA [Mass/volume] in Serum o r PlasmaOrdered By: William Esposito on 12-07-2021 IgA [Mass/Vol] 357 mg/dL 87-352 [facility] IgG [Mass/volume] in Serum o r PlasmaOrdered By: William Vaibhav on 12-07-2021 IgG [Mass/Vol] 794 mg/dL 586-1602 [facility] IgM [Mass/volume] in Serum o r PlasmaOrdered By: William Vaibhav on 12-07-2021 IgM [Mass/Vol] 109 mg/dL 26-217 [facility] Comment on above: Performed at: [facility] [address] [id number] Paleology Teacher: Sanford Mehta PhD, Phone: [phone] Immunofixation for UrineOrde red By: William Esposito on 12-07-2021 Interpretation Immunofixation (U) [Interp] Comment: . [facility] Comment on above: Presence of monoclon al protein is unclear at this time. Suggest repeat in 3 to 6 months if clinically indicated. Performed at: [facility] [address] [id number] Paleology Teacher: Sanford Mehta PhD, Phone: [phone] Immunoglobulin light chains. kappa.free [Mass/volume] in SerumOrdered By: William Vaibhav on 12-07-2021 Immunoglobulin light chains.kappa.free (S) [Mass/Vol] 81.9 mg/L 3.3-19.4 [facility] Immunoglobulin light chains. kappa.free/Immunoglobulin light chains.lambda.free [MassOrdered By: William Vaibhav on 12-07-2021 Immunoglobulin light chains.kappa.free/Immuno globulin light chains.lambda.free (S) [Mass ratio] 1.31 0.26-1.65 [facility] Comment on above: Performed at: [facility] [address] [id number] Paleology Teacher: Sanford Mehta PhD, Phone: [phone] Immunoglobulin light chains. lambda.free [Mass/volume] in Serum or PlasmaOrdered By: William Vaibhav on 12-07-2021 Immunoglobulin light chains.lambda.free [Mass/Vol] 62.3 mg/L 5.7-26.3 [facility] No Panel InformationOrdered By: William Esposito on 12-07-2021 Urine Random Prot Electrophor Note See comment . [facility] Comment on above: Protein electrophore sis scan will follow via computer, mail, or er nurse delivery. Performed at: [facility] [id number] Paleology Teacher: Sanford Mehta PhD, Phone: [phone] Protein Electrophoresis M-Alexei Not observed g/dL Not Observed [facility] Protein Electrophoresis Note See comment . [facility] Comment on above: Protein electrophore sis scan will follow via computer, mail, or er nurse delivery. Performed at: [facility] [employer] [id number] Paleology Teacher: Sanford Mehta PhD, Phone: [phone] Serum Immunofixation See comment . [facility] Comment on above: No monoclonality det ected. Protein [Mass/volume] in Ser um or PlasmaOrdered By: William Esposito on 12-07-2021 Protein [Mass/Vol] 5.2 g/dL 6.0-8.5 [facility] Protein [Mass/volume] in Uri neOrdered By: William Esposito on 12-07-2021 Protein (U) [Mass/Vol] 51.3 mg/dL Not Estab. [facility] Protein.monoclonal/Protein.t otal in 24 hour Urine by ElectrophoresisOrdered By: William Esposito on 12-07-2021 Protein.monoclonal Elph (24H U) [Mass fraction] Not observed % Not Observed [facility] Serum globulin measurement ( mass/volume)Ordered By: William Dahlr on 12-07-2021 Globulin (S) [Mass/Vol] 2.6 g/dL 2.2-3.9 [facility] Serum or plasma albumin/glob ulin mass ratioOrdered By: William Vaibhav on 12-07-2021 Albumin/Globulin [Mass ratio] 1.0 {ratio} 0.7-1.7 [facility] Serum or plasma alpha 1 glob ulin measurement by electrophoresis (mass/volume)Ordered By: William Vaibhav on 12-07-2021 Alpha 1 globulin Elph [Mass/Vol] 0.3 g/dL 0.0-0.4 [facility] Serum or plasma alpha 2 glob ulin measurement by electrophoresis (mass/volume)Ordered By: William Vaibhav on 12-07-2021 Alpha 2 globulin Elph [Mass/Vol] 0.7 g/dL 0.4-1.0 [facility] Serum or plasma beta globuli n measurement by electrophoresis (mass/volume)Ordered By: William Vaibhav on 12-07-2021 Beta globulin Elph [Mass/Vol] 0.7 g/dL 0.7-1.3 [facility] Serum or plasma gamma globul in measurement by electrophoresis (mass/volume)Ordered By: William Vaibhav on 12-07-2021 Gamma globulin Elph [Mass/Vol] 0.9 g/dL 0.4-1.8 [facility] Troponin I.cardiac [Mass/vol ume] in Serum or Plasma by High sensitivity methodOrdered By: Hong Mcintosh on 12-07-2021 Troponin I.cardiac High sensitivity method [Mass/Vol] 7 pg/mL 0-15 [facility] Urine alpha 1 globulin/total protein by electrophoresisOrdered By: William Vaibhav on 12-07-2021 Alpha 1 globulin Elph (U) [Mass fraction] 3.1 % . [facility] Urine alpha 2 globulin/total protein ratio by electrophoresisOrdered By: William Vaibhav on 12-07-2021 Alpha 2 globulin Elph (U) [Mass fraction] 6.0 % . [facility] Urine beta globulin measurem ent by electrophoresis (mass/volume)Ordered By: William Vaibhav on 12-07-2021 Beta globulin Elph (U) [Mass/Vol] 13.5 % . [facility] Urine culture routineOrdered By: Hong Mcintosh on 12-07-2021 Bacteria identified Cx Nom (U) Klebsiella oxytoca [facility] Urine protein/creatinine rat ioOrdered By: William Vaibhav on 12-07-2021 Protein/Creatinine (U) [Ratio] 359 mg/g{Cre} 0-200 [facility] Albumin [Mass/volume] in Ser um or PlasmaOrdered By: William Vaibhav on 12-06-2021 Albumin [Mass/Vol] 3.0 g/dL 3.2-5.5 [facility] CULTURE URINEon 12-06-2021 CULTURE URINE Isolate 1 [...] Trimethoprim/Sulfamethoxaz ole <=20 S F Normal [facility] Comment on above: Performed By: #### H STROPN #### [facility] [address] [place] [address] Dr. Debra Blake Glucose Glucometer (BldC) [M ass/Vol]Ordered By: Hong Mcintosh on 12-06-2021 Glucose [Mass/Vol] 145 mg/dL [facility] Comment on above: Random Glucose Refer ence Range is dependent on time and content of last meal. Glucose of more than 200 mg/dL in a nonstressed, ambulatory subject supports the diagnosis of Diabetes Mellitus. No Panel InformationOrdered By: Hong Mcintosh on 12-06-2021 Anti-Nuclear Antibody Comment 2 See comment . [facility] Comment on above: For more information [...] titers Nucleosomes, Histones Drug-induced SLE Speckled Sm, PHYSICAL THER, SCL-70, SLE,MCTD,PSS (diffuse form), SS-A/SS-B Sjogrens Nucleolar SCL-70, PM-1/SCL High titers Scleroderma, PM/DM Centromere Centromere PSS (limited form) w/Crest syndrome variable Nuclear Dot Sp100,a60-wrughx Primary Biliary Cirrhosis Nuclear GP210, Primary Biliary Cirrhosis Membrane chun A,B,C Performed at: - [facility] [id number] Paleology Teacher: Sanford Mehta PhD, Phone: [phone] OSMOLALITY URINEon 2 Osmolality, Urine 180 mOsmol/kg Normal [facility] Comment on above: Result Comment: 24 h r : 300 - 900 Random: 50 - 1400 After 12hr fluid restriction: >850 Performed By: #### H STROPN #### [facility] [address] [address] [address] Debra Blake Serum nuclear antibody titer Ordered By: Hong Mcintosh on 12-06-2021 Nuclear Ab (S) [Titer] Positive . [facility] Comment on above: Negative <1:80 Borderline 1:80 Positive >1:80 Serum or plasma cyclic adeno sine monophosphate measurement (moles/volume)Ordered By: Hong Mcintosh on 12-06-2021 Adenosine monophosphate.cyclic [Moles/Vol] 10 units 0-19 [facility] Comment on above: Negative <20 Weak positive 20 - 39 Moderate positive 40 - 59 Strong positive >59 Performed at: - [facility] [id number] Paleology Teacher: Meli Bishop MD, Phone: [phone] Serum or plasma ethanol sigifredo urement (mass/volume)Ordered By: Rehan Isidro on 12-06-2021 Ethanol [Mass/Vol] mg/dL [facility] Ethanol [Mass/Vol] TNP [facility] Comment on above: Test not performed Serum speckled pattern antin uclear antibody (MATY) titerOrdered By: Hong Mcintosh on 12-06-2021 Speckled nuclear Ab pattern (S) [Titer] 1:80 . [facility] Comment on above: ICAP nomenclature: A C-2,4,5,29 Amphetamine Screen Ql (U)Ord ered By: Hong Mcintosh on 12-05-2021 Amphetamines Ql (U) Negative Negative [facility] Automated erythrocytes count in urine sediment (number/area)Ordered By: Hong Mcintosh on 12-05-2021 RBC Auto (Urine sed) [#/Area] 1-2 [HPF] 0-4 [facility] Automated leukocytes count i n urine sediment (number/area)Ordered By: Hong Mcintosh on 12-05-2021 WBC Auto (Urine sed) [#/Area] Innumerable [HPF] 0-4 [facility] Barbiturates [Presence] in U rineOrdered By: Hong Mcintosh on 12-05-2021 Barbiturates Ql (U) Negative Negative [facility] Benzodiazepines [Presence] i n UrineOrdered By: Hong Mcintosh on 12-05-2021 Benzodiazepines Ql (U) Positive Negative [facility] Bilirubin Test strip Ql (U)O rdered By: Hong Mcintosh on 12-05-2021 Bilirubin Ql (U) Negative Negative [facility] CT biopsyOrdered By: Patricia Mcintosh on 12-05-2021 Transferrin [Mass/Vol] 175 mg/dL 180-380 [facility] Cannabinoids [Presence] in U rine by Screen methodOrdered By: Hong Mcintosh on 12-05-2021 Cannabinoids Screen Ql (U) Negative Negative [facility] Comment on above: These are unconfirme d results and should not be used for legal purposes. Drug Cut-Off Concentration: AMPH 1000 ng/mL GAYLE 200 ng/mL ISAEL 200 ng/mL COCM 300 ng/mL OP 300 ng/mL PCP 25 ng/mL THC 20 ng/mL Color Auto (U)Ordered By: Nikos Mcintosh on 12-05-2021 Color (U) Yellow Yellow [facility] Ferritin [Mass/volume] in Se rum or PlasmaOrdered By: Hong Mcintosh on 12-05-2021 Ferritin [Mass/Vol] 80.8 ng/mL 11-306.[address] [facility] Iron [Mass/volume] in Serum or PlasmaOrdered By: Hong Mcintosh on 12-05-2021 Iron [Mass/Vol] 22 ug/dL 40-150 [facility] Iron binding capacity [Mass/ volume] in Serum or PlasmaOrdered By: Hong Mcintosh on 12-05-2021 Iron binding capacity [Mass/Vol] 245 ug/dL 255-450 [facility] Ketones Auto test strip (U) [Mass/Vol]Ordered By: Hong Mcintosh on 12-05-2021 Ketones (U) [Mass/Vol] Negative Negative [facility] Ordered By: Hong Mcintosh on 12-05-2021 Opiates Ql (U) Negative Negative [facility] - UrinalysisOrder ed By: Hong Mcintosh on 12-05-2021 Hyaline casts LM Ql (Urine sed) 0-8 [LPF] 0-8 [facility] Lactate dehydrogenase measur ement (enzymatic activity/volume)Ordered By: Hong Mcintosh on 12-05-2021 LDH (Unsp spec) [Catalytic activity/Vol] 135 U/L 45-190 [facility] Nitrite Test strip Ql (U)Ord ered By: Hong Mcintosh on 12-05-2021 Nitrite Ql (U) Negative Negative [facility] No Panel InformationOrdered By: Hong Mcintosh on 12-05-2021 25-Hydroxy Vitamin D Total 21.8 ng/mL 30-100 [facility] Comment on above: VITAMIN D STATUS 25( OH)VITAMIN D RANGE (ng/mL) Deficient <20 Insufficient 20 to <30 Sufficient 30 to 100 Reference: Maggie MF,Jose NC, Gilberto VARGAS, et al. Evaluation,treatment, and prevention of vitamin D deficiency; an Endocrine Society clinical practice guideline. JCEM. 2010; 96(7):1911-30. Vitamin C level <0.1 mg/dL 0.4-2.0 [facility] Comment on above: This test was devyakovo ped and its performance characteristics determined by [facility]. It has not been cleared or approved by the Food and Drug Administration. Vitamin C deficiency is generally defined as plasma or serum concentrations less than 0.2 mg/dL and levels between 0.2 and 0.4 mg/dL are considered low. Performed at: [facility] [address] [id number] Paleology Teacher: Meli Bishop MD, Phone: [phone] Phencyclidine Screen Ql (U)O rdered By: Hong Mcintosh on 12-05-2021 Phencyclidine Ql (U) Negative Negative [facility] Protein Auto test strip (U) [Mass/Vol]Ordered By: Hong Mcintosh on 12-05-2021 Protein (U) [Mass/Vol] 30 mg/dL Negative [facility] Serum or plasma thyroxine (T 4) measurement (mass/volume)Ordered By: Hong Mcintosh on 12-05-2021 T4 [Mass/Vol] 7.19 ug/dL 5.39-11.82 [facility] Specific gravity Auto test s trip (U) [Rel density]Ordered By: Hong Mcintosh on 12-05-2021 Specific gravity (U) [Rel density] 1.013 1.001-1.03 0 [facility] Squamous epithelial cells de tection in urine sediment by light microscopyOrdered By: Hong Mcintosh on 12-05-2021 Epithelial cells.squamous LM Ql (Urine sed) 5-9 [HPF] 0-2 [facility] Thyroxine (T4) free [Mass/vo lume] in Serum or PlasmaOrdered By: Hong Mcintosh on 12-05-2021 Free T4 [Mass/Vol] 1.00 ng/dL 0.61-1.12 [facility] Urine bacteria detection by automated methodOrdered By: Hong Mcintosh on 12-05-2021 Bacteria Auto Ql (U) 4+ None Seen [facility] Urine clarity by refractomet ry automatedOrdered By: Hong Mcintosh on 12-05-2021 Clarity Refractometry automated (U) Cloudy Clear [facility] Urine cocaine detectionOrder ed By: Hong Mcintosh on 12-05-2021 Cocaine Ql (U) Negative Negative [facility] Urine glucose measurement by automated test strip (mass/volume)Ordered By: Hong Mcintosh on 12-05-2021 Glucose Auto test strip (U) [Mass/Vol] Normal mg/dL Normal [facility] Urine hemoglobin detection b y automated test stripOrdered By: Hong Mcintosh on 12-05-2021 Hemoglobin Auto test strip Ql (U) Negative Negative [facility] Urine leukocyte esterase det ection by automated test stripOrdered By: Hong Mcintosh on 12-05-2021 Leukocyte esterase Auto test strip Ql (U) 4+ Negative [facility] Urobilinogen Auto test strip (U) [Mass/Vol]Ordered By: Hong Mcintosh on 12-05-2021 Urobilinogen (U) [Mass/Vol] Normal mg/dL Normal [facility] pH Auto test strip (U)Ordere d By: Hong Mcintosh on 12-05-2021 pH (U) 5.5 [pH] 5.0-9.0 [facility] Activated partial thrombopla stin time (aPTT) in platelet poor plasma by coagulation aOrdered By: Hong Mcintosh on 12-04-2021 aPTT Coag (PPP) [Time] 29.9 s 25.1-36.5 [facility] CBC AUTO DIFFon 12-04-2021 BASO # 0.0 103/ul Normal 0.0-0.1 [facility] Comment on above: Performed By: #### H KINGSTONPN, CMP #### [facility] [address] [place] [address] Dr. Debra Blake Basophils/100 WBC (Bld) 0.4 % Normal 0.2-2.0 [facility] Comment on above: Performed By: #### H KINGSTONPN, CMP #### [facility] [address] [address] [address] Debra Blake EO # 0.1 103/ul Normal 0.0-0.7 [facility] Comment on above: Performed By: #### H KINGSTONPN, CMP #### [facility] [address] [place] [address] Dr. Debra Blake Eosinophils/100 WBC (Bld) 1.3 % Normal 0.9-7.0 [facility] Comment on above: Performed By: #### H STROJOCELIN, CMP #### [facility] [address] [place] [address] Dr. Debra Blake Erythrocyte distribution width (RBC) [Ratio] 14.6 % Normal 11.0-15.0 [facility] Comment on above: Performed By: #### H STROPN, CMP #### [facility] [address] [place] [address] Dr. Debra Blake Hematocrit (Bld) [Volume fraction] 24.6 % Critically low 36.0-48.0 [facility] Comment on above: Performed By: #### H STROPN, CMP #### [facility] [address] [place] [address] Dr. Debra Blake Hemoglobin (Bld) [Mass/Vol] 8.6 g/dL Critically low 12.0-16.0 [facility] Comment on above: Performed By: #### H STROPN, CMP #### [facility] [address] [place] [address] Dr. Debra Blake IG # 0.04 10e3/ul Critically high 0.00-0.03 [facility] Comment on above: Performed By: #### H STROPN, CMP #### [facility] [address] [place] [address] Dr. Debra Blake IG % 0.6 % Critically high 0.0-0.5 [facility] Comment on above: Performed By: #### H STROPN, CMP #### [facility] [address] [place] [address] Dr. Debra Blake LYMPH # 1.3 103/ul Normal 1.2-3.8 [facility] Comment on above: Performed By: #### H STROPN, CMP #### [facility] [address] [place] [address] Dr. Debra Blake Lymphocytes/100 WBC (Bld) 19.7 % Critically low 20.5-60.0 [facility] Comment on above: Performed By: #### H STROPN, CMP #### [facility] [address] [place] [address] Dr. Debra Blake MANUAL DIFF REQ NO Normal [facility] Comment on above: Performed By: #### H STROPN, CMP #### [facility] [address] [place] [address] Dr. Debra Blake MCH (RBC) [Entitic mass] 34.3 pg Critically high 26.7-3 4.0 [facility] Comment on above: Performed By: #### H STROPN, CMP #### [facility] [address] [place] [address] Dr. Debra Blake MCHC (RBC) [Mass/Vol] 35.0 g/dL Normal 29.9-35.2 [facility] Comment on above: Performed By: #### H STROPN, CMP #### [facility] [address] [place] [address] Dr. Debra Blake MCV (RBC) [Entitic vol] 98.0 fL Normal 81.0-99.0 [facility] Comment on above: Performed By: #### H STROPN, CMP #### [facility] [address] [place] [address] Dr. Debra Blake MONO # 0.9 103/ul Critically high 0.3-0.8 [facility] Comment on above: Performed By: #### H STROPN, CMP #### [facility] [address] [place] [address] Dr. Debra Blake Monocytes/100 WBC (Bld) 12.7 % Critically high 1.7-12. 0 [facility] Comment on above: Performed By: #### H STROPN, CMP #### [facility] [address] [place] [address] Dr. Debra Blake NEUT # 4.4 103/ul Normal 1.4-6.5 [facility] Comment on above: Performed By: #### H STROPN, CMP #### [facility] [address] [place] [address] Dr. Debra Blake Neutrophils/100 WBC (Bld) 65.3 % Normal 43.0-75.0 [facility] Comment on above: Performed By: #### H STROPN, CMP #### [facility] [address] [address] [address] Debra Blake Platelet mean volume (Bld) [Entitic vol] 9.0 fL Critically low 9.5-13.5 [facility] Comment on above: Performed By: #### H STROPN, CMP #### [facility] [address] [address] [address] Debra Blake PLT 142 103/ul Critically low 150-450 [facility] Comment on above: Performed By: #### H STROPN, CMP #### [facility] [address] [address] [address] Debra Blake RBC 2.51 106/ul Critically low 4.20-5.40 [facility] Comment on above: Performed By: #### H STROPN, CMP #### [facility] [address] [address] [address] Debra Blake WBC 6.8 103/ul Normal 4.0-11.0 [facility] Comment on above: Performed By: #### H STROPN, CMP #### [facility] [address] [address] [address] Debra Blake BASO # 0.0 103/ul Normal 0.0-0.1 [facility] Comment on above: Performed By: #### C BC #### [facility] [address] [address] [address] Debra Blake Basophils/100 WBC (Bld) 0.5 % Normal 0.2-2.0 [facility] Comment on above: Performed By: #### C BC #### [facility] [address] [address] [address] Debra Blake EO # 0.1 103/ul Normal 0.0-0.7 [facility] Comment on above: Performed By: #### C BC #### [facility] [address] [address] [address] Debra Blake Eosinophils/100 WBC (Bld) 0.9 % Normal 0.9-7.0 [facility] Comment on above: Performed By: #### C BC #### [facility] [address] [place] [address] Dr. Debra Blake Erythrocyte distribution width (RBC) [Ratio] 14.6 % Normal 11.0-15.0 [facility] Comment on above: Performed By: #### C BC #### [facility] [address] [place] [address] Dr. Debra Blake Hematocrit (Bld) [Volume fraction] 26.2 % Critically low 36.0-48.0 [facility] Comment on above: Performed By: #### C BC #### [facility] [address] [place] [address] Dr. Debra Blake Hemoglobin (Bld) [Mass/Vol] 9.2 g/dL Critically low 12.0-16.0 [facility] Comment on above: Performed By: #### C BC #### [facility] [address] [place] [address] Dr. Debra Blake IG # 0.06 10e3/ul Critically high 0.00-0.03 [facility] Comment on above: Performed By: #### C BC #### [facility] [address] [place] [address] Dr. Debra Blake IG % 0.7 % Critically high 0.0-0.5 [facility] Comment on above: Performed By: #### C BC #### [facility] [address] [place] [address] Dr. Debra Blake LYMPH # 1.3 103/ul Normal 1.2-3.8 [facility] Comment on above: Performed By: #### C BC #### [facility] [address] [place] [address] Dr. Debra Blake Lymphocytes/100 WBC (Bld) 15.7 % Critically low 20.5-60.0 [facility] Comment on above: Performed By: #### C BC #### [facility] [address] [place] [address] Dr. Debra Blake MANUAL DIFF REQ NO Normal [facility] Comment on above: Performed By: #### C BC #### [facility] [address] [place] [address] Dr. Debra Blake MCH (RBC) [Entitic mass] 34.2 pg Critically high 26.7-3 4.0 [facility] Comment on above: Performed By: #### C BC #### [facility] [address] [place] [address] Dr. Debra Blake MCHC (RBC) [Mass/Vol] 35.1 g/dL Normal 29.9-35.2 [facility] Comment on above: Performed By: #### C BC #### [facility] [address] [place] [address] Dr. Debra Blake MCV (RBC) [Entitic vol] 97.4 fL Normal 81.0-99.0 [facility] Comment on above: Performed By: #### C BC #### [facility] [address] [place] [address] Dr. Debra Blake MONO # 1.1 103/ul Critically high 0.3-0.8 [facility] Comment on above: Performed By: #### C BC #### [facility] [address] [place] [address] Dr. Debra Blake Monocytes/100 WBC (Bld) 13.3 % Critically high 1.7-12. 0 [facility] Comment on above: Performed By: #### C BC #### [facility] [address] [place] [address] Dr. Debra Blake NEUT # 5.6 103/ul Normal 1.4-6.5 [facility] Comment on above: Performed By: #### C BC #### [facility] [address] [place] [address] Dr. Debra Blake Neutrophils/100 WBC (Bld) 68.9 % Normal 43.0-75.0 [facility] Comment on above: Performed By: #### C BC #### [facility] [address] [place] [address] Dr. Debra Blake Platelet mean volume (Bld) [Entitic vol] 9.2 fL Critically low 9.5-13.5 [facility] Comment on above: Performed By: #### C BC #### [facility] [address] [place], [place] [address] Dr. Debra Blake PLT 179 103/ul Normal 150-450 [facility] Comment on above: Performed By: #### C BC #### [facility] [address] [place], [place] [address] Dr. Debra Blake RBC 2.69 106/ul Critically low 4.20-5.40 [facility] Comment on above: Performed By: #### C BC #### [facility] [address] [place], [place] [address] Dr. Debra Blake WBC 8.1 103/ul Normal 4.0-11.0 [facility] Comment on above: Performed By: #### C BC #### [facility] [address] [place], [place] [address] Dr. Debra Blake Creatine kinase [Enzymatic a ctivity/volume] in Serum or PlasmaOrdered By: Hong Mcintosh on 12-04-2021 CK [Catalytic activity/Vol] 140 U/L 22-269 [facility] Direct bilirubin measurement Ordered By: Hong Mcintosh on 12-04-2021 Bilirubin.direct [Mass/Vol] 0.2 mg/dL 0.0-0.4 [facility] Folate [Mass/volume] in Seru m or PlasmaOrdered By: Hong Mcintosh on 12-04-2021 Folate [Mass/Vol] 5.1 ng/mL >5.9 [facility] Comment on above: Folate reference ran ge: >5.9 ng/ml The WHO technical consultation on folate and vitamin b12 deficiencies has determined that folate concentrations less than 4 ng/ml are considered deficient. Globulin Calc (S) [Mass/Vol] Ordered By: Hong Mcintosh on 12-04-2021 Globulin (S) [Mass/Vol] 3.2 g/dL [facility] Glucose mean value [Mass/vol ume] in Blood Estimated from glycated hemoglobinOrdered By: Hong Mcintosh on 12-04-2021 Average glucose Estimated from glycated hemoglobin (Bld) [Mass/Vol] 97 mg/dL [facility] Hemoglobin A1c percentageOrd ered By: Hong Mcintosh on 12-04-2021 HbA1c (Bld) [Mass fraction] 5.0 % 4.3-5.6 [facility] Comment on above: Increased risk for d iabetes: 5.7 - 6.4 diabetes: >6.4 glycemic control for adults with diabetes: <7.0 Laboratory - Chemistry and C hemistry - challengeOrdered By: Hong Mcintosh on 12-04-2021 Cobalamin (Vitamin B12) [Mass/Vol] 520 pg/mL 180-914 [facility] Laboratory - CoagulationOrde red By: Hong Mcintosh on 12-04-2021 PT Coag (PPP) [Time] 12.2 s 9.0-12.9 [facility] [place] [facility] MAGNESIUMon 12-04-2021 Magnesium [Mass/Vol] 1.1 mg/dL Critically low 1.8-2.4 [facility] Comment on above: Performed By: #### H STROPN #### [facility] [address] [place] [address] Dr. Debra Blake Magnesium [Mass/Vol] 0.6 mg/dL Critically low 1.8-2.4 [facility] Comment on above: Performed By: #### H STROPN, CMP #### [facility] [address] [place] [address] Dr. Debra Blake PROF 14(COMP METB)on 022 Albumin [Mass/Vol] 2.7 g/dL Critically low 3.4-5.0 [facility] Comment on above: Performed By: #### H STROPN #### [facility] [address] [address] [address] Debra Blake Albumin/Globulin [Mass ratio] 0.8 {ratio} Normal [facility] Comment on above: Performed By: #### H STROPN #### [facility] [address] [address] [address] Debra Blake ALP [Catalytic activity/Vol] 57 U/L Normal 46-116 [facility] Comment on above: Performed By: #### H STROPN #### [facility] [address] [address] [address] Debra Blake ALT [Catalytic activity/Vol] 7 U/L Critically low 14-59 [facility] Comment on above: Performed By: #### H STROPN #### [facility] [address] [address] [address] Debra Blake Anion gap [Moles/Vol] 17.3 mmol/L Normal [facility] Comment on above: Performed By: #### H STROPN #### [facility] [address] [address] [address] Debra Blake AST [Catalytic activity/Vol] 14 U/L Critically low 15-37 [facility] Comment on above: Performed By: #### H STROPN #### [facility] [address] [address] [address] Debra Blake Bilirubin [Mass/Vol] 0.6 mg/dL Normal 0.2-1.0 [facility] Comment on above: Performed By: #### H STROPN #### [facility] [address] [address] [address] Debra Blake Calcium [Mass/Vol] 5.8 mg/dL Critically low 8.5-10.1 [facility] Comment on above: Result Comment: Test Repeated. Critical Value Verified Performed By: #### H STROPN #### [facility] [address] [address] [address] Debra Blake Chloride [Moles/Vol] 94 mmol/L Critically low 98-107 [facility] Comment on above: Performed By: #### H STROPN #### [facility] [address] [address] [address] Debra Blake CO2 [Moles/Vol] 17.7 mmol/L Critically low 21.0-32.0 [facility] Comment on above: Performed By: #### H STROPN #### [facility] [address] [address] [address] Debra Blake Creatinine [Mass/Vol] 2.48 mg/dL Critically high 0.55-1.02 [facility] Comment on above: Performed By: #### H STROPN #### [facility] [address] [address] [address] Debra Blake EGFR-AF BURMESE 24 mL/min/1.73m2 Critically low >=60 [facility] Comment on above: Performed By: #### H STROPN #### [facility] [address] [address] [address] Debra Blake EGFR-NON AF BURMESE 20 mL/min/1.73m2 Critically low >=60 [facility] Comment on above: Performed By: #### H STROPN #### [facility] [address] [address] [address] Debra Blake Globulin (S) [Mass/Vol] 3.2 g/dL Normal [facility] Comment on above: Performed By: #### H STROPN #### [facility] [address] [address] [address] Debra Blake Glucose [Mass/Vol] 108 mg/dL Critically high 74-106 [facility] Comment on above: Performed By: #### H STROPN #### [facility] [address] [address] [address] Debra Blake Potassium [Moles/Vol] 3.0 mmol/L Critically low 3.5-5.1 [facility] Comment on above: Performed By: #### H STROPN #### [facility] [address] [address] [address] Debra Blake Protein [Mass/Vol] 5.9 g/dL Critically low 6.4-8.2 [facility] Comment on above: Performed By: #### H STROPN #### [facility] [address] [address] [address] Debra Blake Sodium [Moles/Vol] 126 mmol/L Critically low 136-145 [facility] Comment on above: Performed By: #### H STROPN #### [facility] [address] [address] [address] Debra Blake Urea nitrogen [Mass/Vol] 29.0 mg/dL Critically high 7.0-18 .0 [facility] Comment on above: Performed By: #### H STROPN #### [facility] [address] [address] [address] Debra Blake Urea nitrogen/Creatinine [Mass ratio] 11.7 mg/mg Normal [facility] Comment on above: Performed By: #### H STROPN #### [facility] [address] [address] [address] Debra Blake Albumin [Mass/Vol] 3.1 g/dL Critically low 3.4-5.0 [facility] Comment on above: Performed By: #### H STROPN, CMP #### [facility] [address] [address] [address] Debra Blake Albumin/Globulin [Mass ratio] 0.8 {ratio} Normal [facility] Comment on above: Performed By: #### H STROPN, CMP #### [facility] [address] [address] [address] Debra Blake ALP [Catalytic activity/Vol] 65 U/L Normal 46-116 [facility] Comment on above: Performed By: #### H STROPN, CMP #### [facility] [address] [address] [address] Debra Blake ALT [Catalytic activity/Vol] 9 U/L Critically low 14-59 [facility] Comment on above: Performed By: #### H STROPN, CMP #### [facility] [address] [address] [address] Debra Blake Anion gap [Moles/Vol] 17.3 mmol/L Normal [facility] Comment on above: Performed By: #### H STROPN, CMP #### [facility] [address] [address] [address] Debra Blake AST [Catalytic activity/Vol] 17 U/L Normal 15-37 [facility] Comment on above: Performed By: #### H STROPN, CMP #### [facility] [address] [address] [address] Debra Blake Bilirubin [Mass/Vol] 0.8 mg/dL Normal 0.2-1.0 [facility] Comment on above: Performed By: #### H STROPN, CMP #### [facility] [address] [place] [address] Dr. Debra Blake Calcium [Mass/Vol] 5.8 mg/dL Critically low 8.5-10.1 [facility] Comment on above: Result Comment: Test Repeated. Critical Value Verified Performed By: #### H STROPN, CMP #### [facility] [address] [place] [address] Dr. Debra Blake Chloride [Moles/Vol] 91 mmol/L Critically low 98-107 [facility] Comment on above: Performed By: #### H STROPN, CMP #### [facility] [address] [place] [address] Dr. Debra Blake CO2 [Moles/Vol] 19.6 mmol/L Critically low 21.0-32.0 [facility] Comment on above: Performed By: #### H STROPN, CMP #### [facility] [address] [place] [address] Dr. Debra Blake Creatinine [Mass/Vol] 2.66 mg/dL Critically high 0.55-1.02 [facility] Comment on above: Performed By: #### H STROPN, CMP #### [facility] [address] [place] [address] Dr. Debra Blake EGFR-AF BURMESE 22 mL/min/1.73m2 Critically low >=60 [facility] Comment on above: Performed By: #### H STROPN, CMP #### [facility] [address] [place] [address] Dr. Debra Blake EGFR-NON AF BURMESE 18 mL/min/1.73m2 Critically low >=60 [facility] Comment on above: Performed By: #### H STROPN, CMP #### [facility] [address] [place] [address] Dr. Debra Blake Globulin (S) [Mass/Vol] 3.7 g/dL Normal [facility] Comment on above: Performed By: #### H STROPN, CMP #### [facility] [address] [place] [address] Dr. Debra Blake Glucose [Mass/Vol] 106 mg/dL Normal 74-106 [facility] Comment on above: Performed By: #### H GARY, CMP #### [facility] [address] [address] [address] Debra Blake Potassium [Moles/Vol] 2.8 mmol/L Critically low 3.5-5.1 [facility] Comment on above: Result Comment: Test Repeated. Critical Value Verified Performed By: #### H GARY, CMP #### [facility] [address] [address] [address] Debra Blake Protein [Mass/Vol] 6.8 g/dL Normal 6.4-8.2 [facility] Comment on above: Performed By: #### H GARY, CMP #### [facility] [address] [place] [address] Dr. Debra Blake Sodium [Moles/Vol] 123 mmol/L Critically low 136-145 [facility] Comment on above: Result Comment: Test Repeated. Critical Value Verified Performed By: #### H GARY, CMP #### [facility] [address] [address] [address] Debra Blake Urea nitrogen [Mass/Vol] 29.0 mg/dL Critically high 7.0-18 .0 [facility] Comment on above: Performed By: #### H GARY, CMP #### [facility] [address] [address] [address] Debra Blake Urea nitrogen/Creatinine [Mass ratio] 10.9 mg/mg Normal [facility] Comment on above: Performed By: #### H GARY, CMP #### [facility] [address] [place] [address] Dr. Debra Blake Phosphate [Mass/volume] in S lydia or PlasmaOrdered By: Hong Mcintosh on 12-04-2021 Phosphate [Mass/Vol] 3.6 mg/dL 2.5-4.6 [facility] [place] [facility] Platelet poor plasma interna tional normalized ratio (INR) by coagulation assay (relatOrdered By: Hong Mcintosh on 12-04-2021 INR Coag (PPP) [Relative time] 1.1 {INR} [facility] Comment on above: INR Therapeutic Rang [...] on 12-04-2021 Protein [Mass/Vol] 6.2 g/dL 6.1-7.9 [facility] Serum ionized calcium measur ement using ion specific electrode (mass/volume)Ordered By: Hong Mcintosh on 12-04-2021 Calcium.ionized ISE [Mass/Vol] 3.5 mg/dL 4.5-5.6 [facility] Comment on above: Performed at: [place] [id number] Paleology Teacher: Sanford Mehta PhD, Phone: [phone] Serum or plasma alanine orellana otransferase measurement without P-5'-P (enzymatic activiOrdered By: Hong Mcintosh on 12-04-2021 ALT No additional P-5'-P [Catalytic activity/Vol] 8 U/L 10-60 [facility] Serum or plasma albumin/glob ulin mass ratioOrdered By: Hong Mcintosh on 12-04-2021 Albumin/Globulin [Mass ratio] 0.9 {ratio} [facility] Serum or plasma alkaline lauren sphatase measurement (enzymatic activity/volume)Ordered By: Hong Mcintosh on 12-04-2021 ALP [Catalytic activity/Vol] 51 U/L 32-92 [facility] Serum or plasma aspartate am inotransferase measurement (enzymatic activity/volume)Ordered By: Hong Mcintosh on 12-04-2021 AST [Catalytic activity/Vol] 15 U/L 10-42 [facility] Serum or plasma creatine kin ase MB (CKMB)/total creatine kinase (CK) ratio by calculaOrdered By: Hong Mcintosh on 12-04-2021 CK.MB Calc [Catalytic fraction] 1.4 % 0.00-2.50 [facility] Serum or plasma creatine kin ase MB measurement (mass/volume)Ordered By: Hong Mcintosh on 12-04-2021 CK.MB [Mass/Vol] 2.0 ng/mL 0.6-6.[address] [facility] Serum or plasma non-glucuron idated bilirubin measurement (mass/volume)Ordered By: Hong Mcintosh on 12-04-2021 Bilirubin.indirect [Mass/Vol] 0.6 mg/dL [facility] Serum or plasma prealbumin m easurement (mass/volume)Ordered By: Hong Mcintosh on 12-04-2021 Prealbumin [Mass/Vol] 15.8 mg/dL 18.0-38.0 [facility] Serum or plasma total biliru bin measurement (mass/volume)Ordered By: Hong Mcintosh on 12-04-2021 Bilirubin [Mass/Vol] 0.8 mg/dL 0.3-1.2 [facility] [place] [facility] TROPONIN, HIGH SENSITIVITYon 12-04-2021 HSTROP 91.0 pg/mL Critically high 4.0-51.3 [facility] Comment on above: Result Comment: CUT- OFF POINTS HAVE BEEN ESTABLISHED BASED ON THE FOURTH UNIVERSAL DEFINITIONS OF MYOCARDIAL INFARCTION. THE UPPER REFERENCE LIMIT (URL) OF TROPONIN, DEFINED THE 99TH PERCENTILE OF cTnI DISTRIBUTION IN A REFERENCE POPULATION, HAS BEEN CONFIRMED THE DECISION THRESHOLD FOR DE DIAGNOSIS. Performed By: #### H STROJOCELIN, CMP #### [facility] [address] [address] [address] Debra Blake HSTROP 107.8 pg/mL Critically high 4.0-51.3 [facility] Comment on above: Result Comment: CUT- OFF POINTS HAVE BEEN ESTABLISHED BASED ON THE FOURTH UNIVERSAL DEFINITIONS OF MYOCARDIAL INFARCTION. THE UPPER REFERENCE LIMIT (URL) OF TROPONIN, DEFINED THE 99TH PERCENTILE OF cTnI DISTRIBUTION IN A REFERENCE POPULATION, HAS BEEN CONFIRMED THE DECISION THRESHOLD FOR DE DIAGNOSIS. Performed By: #### H STROPN #### [facility] [address] [address] [address] Debra Blake TSHon 12-04-2021 TSH 0.321 uIU/mL Critically low 0.358-3.74 0 [facility] Comment on above: Performed By: #### H STROPN, CMP #### [facility] [address] [address] [address] Debra Blake TSH DL <= 0.005 mIU/L QnOrde red By: Hong Mcintosh on 12-04-2021 TSH Qn 0.39 m[IU]/L 0.45-5.33 [facility] Urine lactic acid measuremen tOrdered By: Hong Mcintosh on 12-04-2021 Lactate (U) [Moles/Vol] 1.3 mmol/L 0.5-2.2 [facility] CBC AUTO DIFFon 12-03-2021 BASO # 0.1 103/ul Normal 0.0-0.1 [facility] Comment on above: Performed By: #### H STROPN #### [facility] [address] [place] [address] Dr. Debra Blake Basophils/100 WBC (Bld) 0.6 % Normal 0.2-2.0 [facility] Comment on above: Performed By: #### H STROPN #### [facility] [address] [address] [address] Debra Blake EO # 0.1 103/ul Normal 0.0-0.7 [facility] Comment on above: Performed By: #### H STROPN #### [facility] [address] [address] [address] Debra Blake Eosinophils/100 WBC (Bld) 1.5 % Normal 0.9-7.0 [facility] Comment on above: Performed By: #### H STROPN #### [facility] [address] [address] [address] Debra Blake Erythrocyte distribution width (RBC) [Ratio] 14.6 % Normal 11.0-15.0 [facility] Comment on above: Performed By: #### H STROPN #### [facility] [address] [address] [address] Debra Blake Hematocrit (Bld) [Volume fraction] 27.4 % Critically low 36.0-48.0 [facility] Comment on above: Performed By: #### H STROPN #### [facility] [address] [place] [address] Dr. Debra Blake Hemoglobin (Bld) [Mass/Vol] 9.7 g/dL Critically low 12.0-16.0 [facility] Comment on above: Performed By: #### H STROPN #### [facility] [address] [place] [address] Dr. Debra Blake IG # 0.08 10e3/ul Critically high 0.00-0.03 [facility] Comment on above: Performed By: #### H STROPN #### [facility] [address] [place] [address] Dr. Debra Blake IG % 0.9 % Critically high 0.0-0.5 [facility] Comment on above: Performed By: #### H STROPN #### [facility] [address] [place] [address] Dr. Debra Blake LYMPH # 1.9 103/ul Normal 1.2-3.8 [facility] Comment on above: Performed By: #### H STROPN #### [facility] [address] [place] [address] Dr. Debra Blake Lymphocytes/100 WBC (Bld) 20.9 % Normal 20.5-60.0 [facility] Comment on above: Performed By: #### H STROPN #### [facility] [address] [place] [address] Dr. Debra Blake MANUAL DIFF REQ NO Normal [facility] Comment on above: Performed By: #### H STROPN #### [facility] [address] [place] [address] Dr. Debra Blake MCH (RBC) [Entitic mass] 34.5 pg Critically high 26.7-3 4.0 [facility] Comment on above: Performed By: #### H STROPN #### [facility] [address] [address] [address] Debra Blake MCHC (RBC) [Mass/Vol] 35.4 g/dL Critically high 29.9-35.2 [facility] Comment on above: Performed By: #### H STROPN #### [facility] [address] [address] [address] Debra Blake MCV (RBC) [Entitic vol] 97.5 fL Normal 81.0-99.0 [facility] Comment on above: Performed By: #### H STROPN #### [facility] [address] [address] [address] Debra Blake MONO # 1.3 103/ul Critically high 0.3-0.8 [facility] Comment on above: Performed By: #### H STROPN #### [facility] [address] [address] [address] Debra Blake Monocytes/100 WBC (Bld) 14.3 % Critically high 1.7-12. 0 [facility] Comment on above: Performed By: #### H STROPN #### [facility] [address] [address] [address] Debra Blake NEUT # 5.5 103/ul Normal 1.4-6.5 [facility] Comment on above: Performed By: #### H STROPN #### [facility] [address] [address] [address] Debra Blake Neutrophils/100 WBC (Bld) 61.8 % Normal 43.0-75.0 [facility] Comment on above: Performed By: #### H STROPN #### [facility] [address] [address] [address] Debra Blake Platelet mean volume (Bld) [Entitic vol] 9.2 fL Critically low 9.5-13.5 [facility] Comment on above: Performed By: #### H STROPN #### [facility] [address] [address] [address] Debra Blake PLT 187 103/ul Normal 150-450 [facility] Comment on above: Performed By: #### H STROPN #### [facility] [address] [place] [address] Dr. Debra Blake RBC 2.81 106/ul Critically low 4.20-5.40 [facility] Comment on above: Performed By: #### H STROPN #### [facility] [address] [place] [address] Dr. Debra Blake WBC 8.9 103/ul Normal 4.0-11.0 [facility] Comment on above: Performed By: #### H STROPN #### [facility] [address] [place] [address] Dr. Debra Blake Covid-19 PCR ([facility]on 11-09 SARS-CoV-2 (COVID-19) RNA YVONNE+probe Ql (Unsp spec) Not detected Normal NOT DETECTED [facility] Comment on above: Result Comment: When [...] this test is supported by the [employer] of Health and Human Service's declaration that [...] used). Performed By: #### C VDTBH #### [facility] [address] [place] [address] Dr. Debra Blake ER URINE PROFILEon 2 Bilirubin Ql (U) Negative Normal NEGATIVE [facility] Comment on above: Performed By: #### U MICRO, ERUR #### [facility] [address] [place] [address] Dr. Debra Blake Clarity (U) CLEAR Normal CLEAR [facility] Comment on above: Performed By: #### U MICRO, ERUR #### [facility] [address] [address] [address] Debra Blake Color (U) LT. YELLOW Normal YELLOW [facility] Comment on above: Performed By: #### U MICRO, ERUR #### [facility] [address] [address] [address] Debra Blake ERUAHD A micrscopic examina tion will be performed if indicated. Normal [facility] Comment on above: Performed By: #### U MICRO, ERUR #### [facility] [address] [place] [address] Dr. Debra Blake Glucose Ql (U) Negative Normal NEGATIVE [facility] Comment on above: Performed By: #### U MICRO, ERUR #### [facility] [address] [place] [address] Dr. Debra Blake Hemoglobin Ql (U) TRACE-LYSED Abnormal NEGATIVE [facility] Comment on above: Performed By: #### U MICRO, ERUR #### [facility] [address] [place] [address] Dr. Debra Blake Ketones Ql (U) Negative Normal NEGATIVE [facility] Comment on above: Performed By: #### U MICRO, ERUR #### [facility] [address] [place] [address] Dr. Debra Blake LEUKOCYTES MODERATE Abnormal NEGATIVE [facility] Comment on above: Performed By: #### U MICRO, ERUR #### [facility] [address] [place] [address] Dr. Debra Blake Nitrite Ql (U) Negative Normal NEGATIVE [facility] Comment on above: Performed By: #### U MICRO, ERUR #### [facility] [address] [place] [address] Dr. Debra Blake pH (U) 6.0 [pH] Normal 5-9 [facility] Comment on above: Performed By: #### U MICRO, ERUR #### [facility] [address] [place] [address] Dr. Debra Blake SPEC GRAVITY 1.010 Normal 1.005-<=1. 025 [facility] Comment on above: Performed By: #### U MICRO, ERUR #### [facility] [address] [place] [address] Dr. Debra Blake UA PROTEIN TRACE Normal NEGATIVE/ TRACE [facility] Comment on above: Performed By: #### U MICRO, ERUR #### [facility] [address] [place] [address] Dr. Debra Blake UR MICRO IND INDICATED Normal [facility] Comment on above: Performed By: #### U MICRO, ERUR #### [facility] [address] [place] [address] Dr. Debra Blake Urobilinogen Qn (U) 0.2 {Pascale'U}/dL Normal 0.2 - 1. 0 [facility] Comment on above: Performed By: #### U MICRO, ERUR #### [facility] [address] [place] [address] Dr. Debra Blake MAGNESIUMon 12-03-2021 Magnesium [Mass/Vol] 0.4 mg/dL Critically low 1.8-2.4 [facility] Comment on above: Performed By: #### M G #### [facility] [address] [place] [address] Dr. Debra Blake PROF 14(COMP METB)on 022 Albumin [Mass/Vol] 3.2 g/dL Critically low 3.4-5.0 [facility] Comment on above: Performed By: #### H STROPN, CMP #### [facility] [address] [place] [address] Dr. Debra Blake Albumin/Globulin [Mass ratio] 0.8 {ratio} Normal [facility] Comment on above: Performed By: #### H GARY, CMP #### [facility] [address] [place] [address] Dr. Debra Blake ALP [Catalytic activity/Vol] 64 U/L Normal 46-116 [facility] Comment on above: Performed By: #### H KINGSTONPN, CMP #### [facility] [address] [address] [address] Debra Blake ALT [Catalytic activity/Vol] 11 U/L Critically low 14-59 [facility] Comment on above: Performed By: #### H STROPN, CMP #### [facility] [address] [address] [address] Debra Blake Anion gap [Moles/Vol] 19.5 mmol/L Normal [facility] Comment on above: Performed By: #### H STROPN, CMP #### [facility] [address] [address] [address] Debra Blake AST [Catalytic activity/Vol] 19 U/L Normal 15-37 [facility] Comment on above: Performed By: #### H STROPN, CMP #### [facility] [address] [place] [address] Dr. Debra Blake Bilirubin [Mass/Vol] 0.5 mg/dL Normal 0.2-1.0 [facility] Comment on above: Performed By: #### H STROPN, CMP #### [facility] [address] [address] [address] Debra Blake Calcium [Mass/Vol] 5.8 mg/dL Critically low 8.5-10.1 [facility] Comment on above: Performed By: #### H STROPN, CMP #### [facility] [address] [address] [address] Debra Blake Chloride [Moles/Vol] 88 mmol/L Critically low 98-107 [facility] Comment on above: Performed By: #### H STROPN, CMP #### [facility] [address] [address] [address] Debra Blake CO2 [Moles/Vol] 19.7 mmol/L Critically low 21.0-32.0 [facility] Comment on above: Performed By: #### H STROPN, CMP #### [facility] [address] [address] [address] Debra Balke Creatinine [Mass/Vol] 2.77 mg/dL Critically high 0.55-1.02 [facility] Comment on above: Performed By: #### H STROPN, CMP #### [facility] [address] [address] [address] Debra Blake EGFR-AF BURMESE 21 mL/min/1.73m2 Critically low >=60 [facility] Comment on above: Performed By: #### H STROPN, CMP #### [facility] [address] [address] [address] Debra Blake EGFR-NON AF BURMESE 18 mL/min/1.73m2 Critically low >=60 [facility] Comment on above: Performed By: #### H STROPN, CMP #### [facility] [address] [address] [address] Debra Blake Globulin (S) [Mass/Vol] 3.9 g/dL Normal [facility] Comment on above: Performed By: #### H STROPN, CMP #### [facility] [address] [address] [address] Debra Blake Glucose [Mass/Vol] 99 mg/dL Normal 74-106 [facility] Comment on above: Performed By: #### H STROPN, CMP #### [facility] [address] [address] [address] Debra Blake Potassium [Moles/Vol] 3.2 mmol/L Critically low 3.5-5.1 [facility] Comment on above: Performed By: #### H STROPN, CMP #### [facility] [address] [address] [address] Debra Blake Protein [Mass/Vol] 7.1 g/dL Normal 6.4-8.2 [facility] Comment on above: Performed By: #### H STROPN, CMP #### [facility] [address] [address] [address] Debra Blake Sodium [Moles/Vol] 124 mmol/L Critically low 136-145 [facility] Comment on above: Performed By: #### H STROPN, CMP #### [facility] [address] [address] [address] Debra Blake Urea nitrogen [Mass/Vol] 28.0 mg/dL Critically high 7.0-18 .0 [facility] Comment on above: Performed By: #### H GARY, CMP #### [facility] [address] [place] [address] Dr. Debra Blake Urea nitrogen/Creatinine [Mass ratio] 10.1 mg/mg Normal [facility] Comment on above: Performed By: #### H GARY, CMP #### [facility] [address] [place] [address] Dr. Debra Blake TROPONIN, HIGH SENSITIVITYon 12-03-2021 HSTROP 96.9 pg/mL Critically high 4.0-51.3 [facility] Comment on above: Result Comment: CUT- OFF POINTS HAVE BEEN ESTABLISHED BASED ON THE FOURTH UNIVERSAL DEFINITIONS OF MYOCARDIAL INFARCTION. THE UPPER REFERENCE LIMIT (URL) OF TROPONIN, DEFINED THE 99TH PERCENTILE OF cTnI DISTRIBUTION IN A REFERENCE POPULATION, HAS BEEN CONFIRMED THE DECISION THRESHOLD FOR DE DIAGNOSIS. Performed By: #### H GARY, CMP #### [facility] [address] [place] [address] Dr. Debra Blake HSTROP 102.0 pg/mL Critically high 4.0-51.3 [facility] Comment on above: Result Comment: CUT- OFF POINTS HAVE BEEN ESTABLISHED BASED ON THE FOURTH UNIVERSAL DEFINITIONS OF MYOCARDIAL INFARCTION. THE UPPER REFERENCE LIMIT (URL) OF TROPONIN, DEFINED THE 99TH PERCENTILE OF cTnI DISTRIBUTION IN A REFERENCE POPULATION, HAS BEEN CONFIRMED THE DECISION THRESHOLD FOR DE DIAGNOSIS. Performed By: #### H GARY, CMP #### [facility] [address] [place] [address] Dr. Debra Blake URINE MICROSCOPIC ONLYon BACTERIA SMALL Abnormal NONE SEEN [facility] Comment on above: Performed By: #### U MICRO, ERUR #### [facility] [address] [place] [address] Dr. Debra Blake Bacteria identified Cx Nom (U) INDICATED Normal [facility] Comment on above: Performed By: #### U MICRO, ERUR #### [facility] [address] [place] [address] Dr. Debra Blake CAST NONE SEEN Normal NONE SEEN [facility] Comment on above: Performed By: #### U MICRO, ERUR #### [facility] [address] [address] [address] Debra Blake Crystals LM Nom (Urine sed) NONE SEEN Normal NONE SEEN [facility] Comment on above: Performed By: #### U MICRO, ERUR #### [facility] [address] [place] [address] Dr. Debra Blake Epithelial cells LM Ql (Urine sed) FEW Abnormal NONE SEEN /RARE [facility] Comment on above: Performed By: #### U MICRO, ERUR #### [facility] [address] [place] [address] Dr. Debra Blake MUCOUS NONE SEEN Normal NONE SEEN [facility] Comment on above: Performed By: #### U MICRO, ERUR #### [facility] [address] [place] [address] Dr. Debra Blake RBC 2-5 Abnormal 0-2 [facility] Comment on above: Performed By: #### U MICRO, ERUR #### [facility] [address] [place] [address] Dr. Debra Blake WBC (U) [#/Vol] /uL Abnormal NONE SEEN [facility] Comment on above: Performed By: #### U MICRO, ERUR #### [facility] [address] [place] [address] Dr. Debra Blake XR CHEST 1 Von [...] by: CODY ALEXANDER Date: 2021-12-03 19:03 Normal [facility] Vital Signs Date Time Vital Sign Value Performing Clinician Facility 12-27-2023 14:41-0400 Diastolic blood pressure 100 mm[Hg] [facility] 12-27-2023 14:41-0400 Heart rate 86 /min Katie Velasquez APRN Work Phone: [facility] 12-27-2023 14:41-0400 Systolic blood pressure 184 mm[Hg] [facility] 12-27-2023 14:35-0400 Body height 165.1 cm [facility] 12-27-2023 14:35-0400 Body mass index (BMI) [Ratio] 28.3 kg/m2 [facility] 12-27-2023 14:35-0400 Body temperature 98 [degF] [facility] 12-27-2023 14:35-0400 Body weight 77.16 kg [facility] 12-27-2023 14:35-0400 Heart rate 138 /min [facility] 12-27-2023 14:35-0400 Respiratory rate 20 /min [facility] 12-27-2023 14:35-0400 SaO2% (BldA) [Mass fraction] 99 % [facility] 09-28-2023 14:43-0400 Body height 165.1 cm [facility] 09-28-2023 14:43-0400 Body mass index (BMI) [Ratio] 25.6 kg/m2 [facility] 09-28-2023 14:43-0400 Body weight 69.85 kg [facility] 09-28-2023 14:43-0400 Diastolic blood pressure 76 mm[Hg] [facility] 09-28-2023 14:43-0400 Heart rate 77 /min [facility] 09-28-2023 14:43-0400 SaO2% (BldA) [Mass fraction] 98 % [facility] 09-28-2023 14:43-0400 Systolic blood pressure 118 mm[Hg] [facility] 03-15-2022 20:42-0500 Diastolic blood pressure 89 mm[Hg] [facility] Work Phone: [facility] 03-15-2022 20:42-0500 Heart rate 98 /min DO [employer] Work Phone: [facility] 03-15-2022 20:42-0500 Respiratory rate 18 /min [facility] Work Phone: [facility] 03-15-2022 20:42-0500 SaO2% (BldA) [Mass fraction] 99 % [facility] Work Phone: [facility] 03-15-2022 20:42-0500 Systolic blood pressure 158 mm[Hg] DO [facility] Work Phone: [facility] 03-15-2022 18:02-0500 Body temperature 98 [degF] DO [facility] Work Phone: [facility] 03-15-2022 17:59-0500 Body height 162.56 cm DO [facility] Work Phone: [facility] 03-15-2022 17:59-0500 Body weight 69.3 kg DO [facility] Work Phone: [facility] 03-15-2022 17:40-0500 Body height 165.1 cm William Vaibhav Other [employer] Other 03-15-2022 17:40-0500 Body mass index (BMI) [Ratio] 25.39 kg/m2 William Vaibhav Other [employer] Other 03-15-2022 17:40-0500 Body temperature 96.6 [degF] William Vaibhav Other [employer] Other 03-15-2022 17:40-0500 Body weight 69.22 kg William Vaibhav Other [employer] Other 03-15-2022 17:40-0500 Diastolic blood pressure 137 mm[Hg] William Vaibhav Other [employer] Other 03-15-2022 17:40-0500 Respiratory rate 18 /min William Vaibhav Other [employer] [address] Other 03-15-2022 17:40-0500 SaO2% (BldA) [Mass fraction] 98 % William Vaibhav Other [email or web address] [facility] [address] Other 03-15-2022 17:40-0500 Systolic blood pressure 221 mm[Hg] William Vaibhav Other [facility] [address] Other 12-10-2021 11:52-0400 Body temperature 98 [degF] DO [facility] Work Phone: [facility] 12-10-2021 11:52-0400 Diastolic blood pressure 82 mm[Hg] DO [facility] Work Phone: [facility] 12-10-2021 11:52-0400 Heart rate 77 /min DO [facility] Work Phone: [facility] 12-10-2021 11:52-0400 Respiratory rate 16 /min DO [facility] Work Phone: [facility] 12-10-2021 11:52-0400 SaO2% (BldA) [Mass fraction] 99 % DO [facility] Work Phone: [facility] 12-10-2021 11:52-0400 Systolic blood pressure 132 mm[Hg] DO [facility] Work Phone: [facility] 12-10-2021 06:00-0400 Body weight 88 kg DO [facility] Work Phone: [facility] 12-08-2021 14:53-0400 Body height 165.1 cm DO [facility] Work Phone: [facility] Encounters Encounter Date Encounter Type Care Provider Facility Start: 02-19-2024 End: 02-19-2024 ambulatory Katie Velasquez APRN Work Phone: [facility] Work Phone: Start: 02-19-2024 End: 02-19-2024 Departed Referred Katie Velasquez SKEIN WINDING OPERATOR Work Phone: [facility] Start: 12-27-2023 End: 12-27-2023 ambulatory [facility] Work Phone: Start: 12-27-2023 End: 12-27-2023 Patient encounter procedure [facility] Work Phone: Start: 09-28-2023 End: 09-28-2023 ambulatory [facility] Work Phone: Start: 09-28-2023 End: 09-28-2023 Patient encounter procedure [facility] Work Phone: Start: 03-15-2022 End: 03-15-2022 Emergency department patient visit DO [facility] Work Phone: [facility] Start: 03-15-2022 End: 03-15-2022 ambulatory William Vaibhav Other [employer] Other Start: 03-15-2022 Office outpatient visit 25 minutes William Vaibhav [facility] Start: 12-19-2021 End: 12-19-2021 ambulatory JUNO HERNÁNDEZ Facility:[facility] Start: 12-15-2021 ambulatory MD Luis SAMS [facility] ity:[facility] Start: 12-08-2021 End: 12-09-2021 ambulatory MD Luis SAMS Facility:[id number] Start: 12-04-2021 End: 12-10-2021 Evaluation and management of inpatient DO [facility] Work Phone: [facility] [place] [facility] Start: 12-03-2021 End: 12-04-[address] UNIQUE AUSTIN Facility:[facility] Start: 07-04-2017 End: 07-05-2017 Ambulatory DEFAULT PHYSICIAN Facility:[facility] Start: 05-02-2017 End: 05-03-2017 Ambulatory DEFAULT PHYSICIAN Facility:[facility] Procedures Date Procedure Procedure Detail Performing Clinician Start: 03-15-2022 Plain chest X-ray DO Henna Rawls Work Phone: Start: 12-08-2021 CT of abdomen and pe lvis without contrast DO [facility] [place] Work Phone: Start: 12-07-2021 Ultrasonography of b ilateral kidneys DO [facility] [place] Work Phone: Start: 12-06-2021 CT of chest without contrast DO [facility] [place] Work Phone: Measurement of occul t blood in stool specimen using immunoassay DO [facility] [place] Work Phone: Urine culture DO [facility] Work Phone: Plan of Treatment Date Care Activity Detail Author Start: 12-27-2023 Patient referral [facility] Work Phone: Start: 09-28-2023 Patient referral [facility] Work Phone: Start: 12-10-2021 [facility] Work Phone: Start: 12-08-2021 Referral to urologist [facility] Work Phone: Start: 12-06-2021 Referral to bulb inspector [facility] Work Phone: Start: 12-05-2021 Referral to leading firefighter [facility] Work Phone: Start: 12-05-2021 Administration of prophylactic treatment [facility] Work Phone: Start: 12-05-2021 [facility] Work Phone: Start: 12-04-2021 [facility] Work Phone: Start: 12-04-2021 Referral to Commercial Real Estate Lender [facility] Work Phone: Start: 12-04-2021 Hospital admission [facility] Work Phone: Blood chemistry [facility] Work Phone: Comprehensive metabo lic 2000 panel - Serum or Plasma [facility] MG Breast - bilatera l Diagnostic [facility] Patient Education High Blood Pre ssure ED [facility] Work Phone: [facility] Work Phone: Phosphatidylethanol [Mass/volume] in Blood [facility] Work Phone: Thiamine [Moles/volu me] in Blood [facility] Work Phone: US Breast - left limited Fir [facility] Payers Date Payer Category Payer Self-pay 1965 Unknown [id number] 1965 Unknown [id number] 1965 Unknown [id number] 1961 Unknown [id number] [facility] [id number] Unknown Unknown [id number] [id number] Social History Date Type Detail Facility Start: 12-08-2021 End: 09-28-2023 Tobacco smoking status NHIS Smoker (finding) [facility] Start: 1965 Sex Assigned At Female F [facility] Sex Assigned At Sex Assigned At Bir th [employer] Other Start: 02-21-2024 Sex Female (finding) [facility] Goals Date Patient Goal Desired Activity /State Functional Status Date Assessment Result Facility 12-10-2021 Functional status Patient is Pro gressing Toward Baseline [facility] Work Phone: Mental Status Date Assessment Result Facility 12-10-2021 Cognitive function Cognitive Sta tus Patient at Baseline [facility] Work Phone: Clinical Notes 12-04-2021 to [...] 27, 2023 2:30pm Weakness acute December 2:30pm [facility] Work Phone: [phone] 487-733312-06-2022 Evaluation note* Encounter Date Diagnosis Assessment Notes [...] Advised to go to the emergency room. [employer] Other 09-07-2022 Note [id number]:[address] [place] [address] 12-10-2021 Discharge summary Author Hong Mcintosh [facility] December 10, 2021 7:47pm Note Date/Time December 10, 2021 1:26pm [facility] [address] [place] [address] Discharge Summary Signed Patient: Juanita Redman MR#: [id number] : 1965 Acct:[id number] Age/Sex: 56 / F Adm Date: 2 Loc: Room: [address] [place] [address]: Hong Mcintosh DO Copies to: [...] about 24 hours before bed opened up. [facility]. Here in the hospital she did [...] ablation for that problem x2 at the [facility]. She had nephrology consultation. He felt that [...] % (Auto) 62.7, Lymph % (Auto) 21.7, [place] % (Auto) 11.2, Eos % (Auto) 3.5, Baso % (Auto) 0.9, Neut # (Auto) 3.9, Lymph # (Auto) 1.4, [place] # (Auto) 0.7, Eos # (Auto) 0.2, Baso # (Auto) 0.1, Nucleated RBC % (auto) 0.0 12/09/21 18:15: Hgb 8.0 L, Hct 24.2 L 12/09/21 14:48: Double Strand DNA Ab <1 12/07/21 12:45: Ur Random Albumin 69.2, U Random Total Protein 51.3, U Rafuo-1-Gtzgccst (%) 3.1, U Random c-0-Ftvwjlxi % 6.0, U Random b-Globulin % 13.5, [...] up appointment.) Documented By: Hong Mcintosh DO 1324 Signed By: <Electronically signed by Hong Mcintosh DO> 12/10/21 2913 [facility] Work Phone: 1([phone] Progress note Author William Esposito [facility] December 10, 2021 11:31am Note Date/Time December 10, 2021 11:24am [facility] [address] [place], [place] [id number] Nephrology Progress Note Signed Patient: Juanita Redman MR#: [id number] : 1965 Acct:[id number] Age/Sex: 56 / F Adm Date: 2 Loc: Room: [address] [place] [address] Type: ADM IN Attending Dr: Hong Mcintosh DO Copies to: ~ Date of Service: 12/10/2021 Subjective Subjective Narrative: Mrs. Redman is a 56-year-old white female with history of COPD, smoker, alcohol abuse and hypothyroidism on levothyroxine who was transferred from [facility] on 12/04 for abnormal blood work [...] 1 g of calcium before transfer to [facility]. Today's creatinine is slightly [...] visible mass Skin: No rashes or bruises REHAB NURSING TECH: Awake,Alert, following simple command Musculoskeletal: No joint [...] 40 Mg Tablet) 40 mg PO DAILY.8A [facility] Stop: 12/10/22 07:59 Last Admin: 12/10/21 08:31 [...] 100 Mg Tab.Er.24h) 100 mg PO DAILY [facility] Stop: 12/04/22 17:43 Last Admin: 12/10/21 08:30 [...] <Electronically signed by William Esposito MD> 12/10/21 1138 [facility] Work Phone: [phone] Progress note Author Hong Mcintosh [facility] December 09, 2021 4:10pm Note Date/Time December 09, 2021 4:10pm [facility] [address] [place] [address] Hospitalist Progress Note Signed Patient: Juanita Redman MR#: [id number] : 1965 Acct:[id number] Age/Sex: 56 / F Adm Date: 2 Loc: Room: [address] [place] [address] Type: ADM IN Attending Dr: Hong Mcintosh [...] signed by Hong Mcintosh DO> 12/09/21 1610 [facility] Work Phone: [phone] Progress note Author William Esposito [facility] December 09, 2021 10:58am Note Date/Time December 09, 2021 10:58am [facility] [address] [place] [address] Nephrology Progress Note Signed Patient: Juanita Redman MR#: [id number] : 1965 Acct:[id number] Age/Sex: 56 / F Adm Date: 2 Loc: Room: [address] [place] [address] Type: ADM IN Attending Dr: Hong Mcintosh DO Copies to: ~ Date of Service: 12/09/2021 Subjective Subjective Narrative: Mrs. Redman is a 56-year-old white female with history of COPD, smoker, alcohol abuse and hypothyroidism on levothyroxine who was transferred from [facility] on 12/04 for abnormal blood work [...] 1 g of calcium before transfer to [facility]. Today's creatinine is slightly [...] visible mass Skin: No rashes or bruises REHAB NURSING TECH: Awake,Alert, following simple command Musculoskeletal: No joint [...] 500 Mg Tablet) 500 mg PO BID.WITH.BFAST.LUNCH [facility] Stop: 12/05/22 07:59 Last Admin: 12/09/21 08:25 Dose: 500 mg Calcium Carbonate (Calcium Carbonate 500 Mg Tablet) 1,000 mg PO BID [facility] Stop: 12/06/22 09:29 Last Admin: 12/09/21 08:13 Dose: 1,000 mg Chlordiazepoxide HCl (Chlordiazepoxide 25 Mg Capsule) 0 mg PO PROTOCOL PRN; Protocol PRN Reason: Alcohol Withdrawal Stop: 06/04/22 19:32 Last Admin: 12/08/21 21:14 Dose: 50 mg Ferrous Sulfate (Ferrous Sulfate 324 Mg Tablet.Dr) 324 mg PO Q48H [facility] Stop: 12/09/22 09:14 Last Admin: 12/09/21 09:37 Dose: 324 mg Furosemide (Furosemide 40 Mg Tablet) 40 mg PO DAILY.8A [facility] Stop: 12/10/22 07:59 Magnesium Sulfate (Magnesium Sulf 2gm-*Swfi*) 2 gm in 50 mls @ 25 mls/hr IV DAILY PRN PRN Reason: Magnesium Level < 1.5 Stop: 12/04/22 10:15 Folic Acid 1 mg/ Dextrose 50.2 mls @ 100.4 mls/hr IV DAILY [facility] Stop: 12/04/22 13:59 Last Admin: 12/09/21 09:37 Dose: 100 mls/hr Thiamine HCl 200 mg/ Sodium (Chloride) 102 mls @ 204 mls/hr IV TID [facility] Stop: 12/04/22 21:59 Last Admin: 12/09/21 09:37 Dose: 204 mls/hr Levofloxacin (Levofloxacin 750 Mg Tablet) 750 mg PO Q48H [facility] Stop: 12/16/21 09:00 Last Admin: 12/09/21 08:13 Dose: 750 mg Levothyroxine Sodium (Levothyroxine 50 Mcg Tablet) 50 mcg PO DAILY.629 [facility] Stop: 12/05/22 06:29 Last Admin: 12/09/21 05:30 Dose: 50 mcg Metoprolol Succinate (Metoprolol Succinate 100 Mg Tab.Er.24h) 100 mg PO DAILY [facility] Stop: 12/04/22 17:43 Last Admin: 12/09/21 08:14 Dose: 100 mg Metoprolol Tartrate (Metoprolol Tartrate 5 Mg/5 Ml Vial) 5 mg IV-PUSH Q4H PRN PRN Reason: tachycardia Stop: 12/06/22 19:17 Nicotine (Nicotine Patch 21 Mg/24hr 1 Each Patch.Td24) 1 each TRANSDERML DAILY [facility] Stop: 12/06/22 08:59 Last Admin: 12/09/21 08:15 Dose: Not Given Omeprazole (Omeprazole 20 Mg Capsule.Dr) 20 mg PO DAILY [facility] Stop: 12/05/22 08:59 Last Admin: 12/09/21 08:14 Dose: 20 mg Potassium Chloride (Potassium Chloride Er 20 Meq Tab.Er.Prt) 20 meq PO DAILY PRN PRN Reason: Hypokalemia Stop: 12/04/22 10:15 Potassium Chloride (Potassium Chloride Er 20 Meq Tab.Er.Prt) 40 meq PO DAILY PRN PRN Reason: Hypokalemia Stop: 12/04/22 10:15 Sodium Bicarbonate (Sodium Bicarbonate 650 Mg Tablet) 650 mg PO TID [facility] Stop: 12/07/22 13:59 Last Admin: 12/09/21 08:14 [...] Unique Enciso M.D.12/08/2021 5:49 PM Dictation Location: [place] [address] Any impression(s) listed above is documentation that [...] <Electronically signed by William Esposito MD> 12/09/21 6527 [facility] Work Phone: [phone] Progress note Author Claude Castellanos [facility] December 08, 2021 6:59pm Note Date/Time December 08, 2021 6: 59pm [facility] [address] [place] [address] Hospitalist Progress Note Signed Patient: Juanita Redman MR#: [id number] : 1965 Acct:[id number] Age/Sex: 56 / F Adm Date: 2 Loc: Room: [id number] Type: ADM IN Attending Dr: Claude Castellanos [...] <Electronically signed by Claude Castellanos MD> 12/08/211858 [facility] Work Phone: [phone] Consult note Author Luis Sams [facility] December 08, 2021 3:55pm Note Date/Time December 08, 2021 3: 55pm [facility] [address] [place] [address] Urology Consult Note Signed Patient: Juanita Redman MR#: [id number] : 1965 Acct:[id number] Age/Sex: 56 / F Adm Date: 2 Loc: Room: [address] [place] [address] Type: ADM IN Attending Dr: Claude Castellanos MD Copies to: DO Claude Rose MD Patrick R Waters, MD~ History of Present Illness Consult Details Consult Date: 12/08/2021 Requesting Provider: Claude Castellanos MD HPI: This lady was admitted to the hospital after transfer from [facility] dueto low sodium, calcium and magnesium [...] % (Auto) 55.8, Lymph % (Auto) 27.7, [place] % (Auto) 13.1, Eos % (Auto) 2.7, Baso % (Auto) 0.7, Neut # (Auto) 3.1, Lymph # (Auto) 1.6, [place] # (Auto) 0.7, Eos # (Auto) 0.2, [...] % (Auto) 83.6, Lymph % (Auto) 7.8, [place] % (Auto) 8.3, Eos % (Auto) 0.1, Baso % (Auto) 0.2, Neut # (Auto) 6.2, Lymph # (Auto) 0.6 L, [place] # (Auto) 0.6, Eos # (Auto) 0.0, [...] signed by MD Luis Sams> 12/08/21 1555 [facility] Work Phone: [phone] Progress note Author William Esposito [facility] December 08, 2021 11:01am Note Date/Time December 08, 2021 10 :55am [facility] [address] [place] [address] Nephrology Progress Note Signed Patient: Juanita Redman MR#: [id number] : 1965 Acct:[id number] Age/Sex: 56 / F Adm Date: 2 Loc: Room: [address] [place] [address] Type: ADM IN Attending Dr: Claude Castellanos MD Copies to: ~ Date of Service: 12/08/2021 Subjective Subjective Narrative: Mrs. Redman is a 56-year-old white female with history of COPD, smoker, alcohol abuse and hypothyroidism on levothyroxine who was transferred from [facility] on 12/04 for abnormal blood work [...] 1 g of calcium before transfer to [facility]. Today's creatinine is slightly [...] visible mass Skin: No rashes or bruises REHAB NURSING TECH: Awake,Alert, following simple command Musculoskeletal: No joint [...] 500 Mg Tablet) 500 mg PO BID.WITH.BFAST.LUNCH [facility] Stop: 12/05/22 07:59 Last Admin: 12/08/21 08:29 Dose: 500 mg Calcium Carbonate (Calcium Carbonate 500 Mg Tablet) 1,000 mg PO BID [facility] Stop: 12/06/22 09:29 Last Admin: 12/08/21 08:29 [...] 50.2 mls @ 100.4 mls/hr IV DAILY [facility] Stop: 12/04/22 13:59 Last Admin: 12/08/21 09:44 Dose: 100 mls/hr Thiamine HCl 200 mg/ Sodium (Chloride) 102 mls @ 204 mls/hr IV TID [facility] Stop: 12/04/22 21:59 Last Infusion: 12/08/21 08:59 Dose: Infused Levofloxacin (Levofloxacin 750 Mg Tablet) 750 mg PO Q48H [facility] Levothyroxine Sodium (Levothyroxine 50 Mcg Tablet) 50 mcg PO DAILY.0630 [facility] Stop: 12/05/22 06:29 Last Admin: 12/08/21 05:51 Dose: 50 mcg Metoprolol Succinate (Metoprolol Succinate 100 Mg Tab.Er.24h) 100 mg PO DAILY [facility] Stop: 12/04/22 17:43 Last Admin: 12/08/21 08:29 Dose: 100 mg Metoprolol Tartrate (Metoprolol Tartrate 5 Mg/5 Ml Vial) 5 mg IV-PUSH Q4H PRN PRN Reason: tachycardia Stop: 12/06/22 19:17 Nicotine (Nicotine Patch 21 Mg/24hr 1 Each Patch.Td24) 1 each TRANSDERML DAILY [facility] Stop: 12/06/22 08:59 Last Admin: 12/08/21 08:29 Dose: Not Given Omeprazole (Omeprazole 20 Mg Capsule.Dr) 20 mg PO DAILY [facility] Stop: 12/05/22 08:59 Last Admin: 12/08/21 08:28 Dose: 20 mg Potassium Chloride (Potassium Chloride Er 20 Meq Tab.Er.Prt) 20 meq PO DAILY PRN PRN Reason: Hypokalemia Stop: 12/04/22 10:15 Potassium Chloride (Potassium Chloride Er 20 Meq Tab.Er.Prt) 40 meq PO DAILY PRN PRN Reason: Hypokalemia Stop: 12/04/22 10:15 Sodium Bicarbonate (Sodium Bicarbonate 650 Mg Tablet) 650 mg PO TID [facility] Stop: 12/07/22 13:59 Last Admin: 12/08/21 08:28 Dose: 650 mg Sodium Chloride (Sodium Chloride 0.9 % 10 Ml Syringe) 0 ml IV-PUSH PRN PRN PRN Reason: Flush Stop: 12/04/22 10:15 Last Admin: 12/05/21 22:07 Dose: 10 ml Vitamin D (Cholecalciferol 10 Mcg (400 Units) Tablet) 20 mcg PO BID.WITH.MEALS [facility] Stop: 12/07/22 07:59 Last Admin: 12/08/21 08:28 [...] Unique Enciso M.D.12/07/2021 4:27 PM Dictation Location: [place] [address] Any impression(s) listed above is documentation that [...] signed by William Esposito MD> 12/08/21 1101 [facility] Work Phone: [phone] Progress note Author Claude Castellanos [facility] December 07, 2021 8:00pm Note Date/Time December 07, 2021 8: 00pm [facility] [address] [place] [address] Hospitalist Progress Note Signed Patient: Juanita Redman MR#: [id number] : 1965 Acct:[id number] Age/Sex: 56 / F Adm Date: 2 Loc: Room: [address] [place] [address] Type: ADM IN Attending Dr: Claude Castellanos [...] <Electronically signed by Claude Castellanos MD> 12/07/211999 [facility] Work Phone: [phone] Consult note Author Kylah Kingsley [facility] December 07, 2021 4:57pm Note Date/Time December 07, 2021 4: 51pm [facility] [address] [place] [address] Cardiology Consult Note Signed Patient: Juanita Redman MR#: [id number] : 1965 Acct:[id number] Age/Sex: 56 / F Adm Date: 2 Loc: Room: [address] [place] [address] Type: ADM IN Attending Dr: Claude Castellanos MD Copies to: DO Claude Rose MD Hassan M Ibrahim, MD, FACC~ Cardiology HPI History of Present Illness Consult Date: 12/07/21 Reason for Consult: Paroxysmal atrial fibrillation HPI: Ms. Redman is a 56 year old female who is being seen at the request of the hospitalist because of paroxysmal atrial fibrillation. Patient presented to [facility] emergency department with syncopal event believed to [...] denies any complaints. While she was in [facility] emergency department her high-sensitivitytroponin was elevated at [...] Lymph # (Auto) 0.6 L (1.00-4.8) x10E3/uL [place] # (Auto) 0.6 (0.0-0.8) x10E3/uL Eos # [...] ml @ 100.4 mls/hr IV DAILY [facility] Rx#:[id number] Thiamine 200 mg In Sodium 102 / 102 Chloride 0.9% 100 ml 100 ml @ 204 mls/hr IV TID [facility] Rx#: [id number] Oral 150 / 350 200 / 350 [...] failure, unspecified Documented By: Kylah Kingsley MD, [facility] 2 1649 Signed By: <Electronically signed by [facility] Kylah Kingsley> 12/07/21 1657 [facility] Work Phone: [phone] Progress note Author William Esposito [facility] December 07, 2021 10:38am Note Date/Time December 07, 2021 10 :34am [facility] [address] [place] [address] Nephrology Progress Note Signed Patient: Juanita Redman MR#: [id number] : 1965 Acct:[id number] Age/Sex: 56 / F Adm Date: 2 Loc: Room: [address] [place] [address] Type: ADM IN Attending Dr: Claude Castellanos MD Copies to: ~ Date of Service: 12/07/2021 Subjective Subjective Narrative: Mrs. Redman is a 56-year-old white female with history of COPD, smoker, alcohol abuse and hypothyroidism on levothyroxine who was transferred from [facility] on 12/04 for abnormal blood work [...] 1 g of calcium before transfer to [facility]. Today's creatinine is slightly [...] visible mass Skin: No rashes or bruises REHAB NURSING TECH: Awake,Alert, following simple command Musculoskeletal: No joint [...] 500 Mg Tablet) 500 mg PO BID.WITH.BFAST.LUNCH [facility] Stop: 12/05/22 07:59 Last Admin: 12/07/21 08:12 Dose: 500 mg Calcium Carbonate (Calcium Carbonate 500 Mg Tablet) 1,000 mg PO BID [facility] Stop: 12/06/22 09:29 Last Admin: 12/07/21 08:11 [...] 50.2 mls @ 100.4 mls/hr IV DAILY [facility] Stop: 12/04/22 13:59 Last Infusion: 12/07/21 09:30 Dose: Infused Thiamine HCl 200 mg/ Sodium (Chloride) 102 mls @ 204 mls/hr IV TID [facility] Stop: 12/04/22 21:59 Last Infusion: 12/07/21 09:17 Dose: Infused Levofloxacin (Levaquin) 750 mg in 150 mls @ 100 mls/hr IV Q48H [facility] Last Admin: 12/07/21 09:31 Dose: 100 mls/hr Sodium Bicarbonate 150 meq/ (Dextrose) 1,150 mls @ 100 mls/hr IV .[id number] [facility] Stop: 12/06/22 19:29 Last Admin: 12/06/21 20:18 Dose: 100 mls/hr Levothyroxine Sodium (Levothyroxine 50 Mcg Tablet) 50 mcg PO DAILY.0630 [facility] Stop: 12/05/22 06:29 Last Admin: 12/07/21 05:42 Dose: 50 mcg Metoprolol Succinate (Metoprolol Succinate 100 Mg Tab.Er.24h) 100 mg PO DAILY [facility] Stop: 12/04/22 17:43 Last Admin: 12/07/21 08:12 Dose: 100 mg Metoprolol Tartrate (Metoprolol Tartrate 5 Mg/5 Ml Vial) 5 mg IV-PUSH Q4H PRN PRN Reason: tachycardia Stop: 12/06/22 19:17 Nicotine (Nicotine Patch 21 Mg/24hr 1 Each Patch.Td24) 1 each TRANSDERML DAILY [facility] Stop: 12/06/22 08:59 Last Admin: 12/07/21 08:12 Dose: 1 each Omeprazole (Omeprazole 20 Mg Capsule.Dr) 20 mg PO DAILY [facility] Stop: 12/05/22 08:59 Last Admin: 12/07/21 08:12 [...] (400 Units) Tablet) 20 mcg PO BID.WITH.MEALS [facility] Stop: 12/07/22 07:59 Last Admin: 12/07/21 08:11 [...] Rossi Salinas M.D.12/06/2021 6:01 PM Dictation Location: [place] [address] Any impression(s) listed above is documentation that [...] signed by William Esposito MD> 12/07/21 1038 [facility] Work Phone: [phone] Progress note Author Hong Mcintosh [facility] December 06, 2021 7:32pm Note Date/Time December 06, 2021 7: 32pm [facility] [address] [place] [address] Hospitalist Progress Note Signed Patient: Juanita Redman MR#: [id number] : 1965 Acct:[id number] Age/Sex: 56 / F Adm Date: 2 Loc: Room: [address] [place] [address] Type: ADM IN Attending Dr: Hong Mcintosh [...] that she reported were completed at the [facility]. Given her vasovagal syncope in the bathroom [...] 11:01 Dextrose IV 12/06/21 20:59 100 mls/hr .[id number] [facility] Administration Sodium Chloride 1,000 mls @ [...] <Electronically signed by Hong Mcintosh DO> 12/06/211931 [facility] Work Phone: [phone] Consult note Author Rehan Isidro [facility] December 06, 2021 5:46pm Note Date/Time December 06, 2021 5: 46pm [facility] [address] [place] [address] Gastroenterology Consult Note Signed Patient: Juanita Redman MR#: [id number] : 1965 Acct:[id number] Age/Sex: 56 / F Adm Date: 2 Loc: 4P Room: 6V9969-5 Type: ADM IN Attending Dr: Hong Mcintosh [...] recorded. The patient was transferred to the [facility] and admitted the day before yesterday [...] EGD and colonoscopy several years ago in [place]. She was told that she had a gastric polyp and a colon polyp. She has not had this rechecked. Hemoglobin did drop to 7.7 but is now 8.7. Stool for occult blood is negative. Blood counts show macrocytic indices with normal ferritin. Review of systems includes hypertension, hypothyroidism, history of DE, history of SVT. cc:: CC: Hong Mcintosh [...] % (Auto) 62.7 Lymph % (Auto) 19.7 [place] % (Auto) 14.4 Eos % (Auto) 2.3 Baso % (Auto) 0.9 Neut # (Auto) 4.0 Lymph # (Auto) 1.3 [place] # (Auto) 0.9 H Eos # (Auto) [...] MPV Neut % (Auto) Lymph % (Auto) [place] % (Auto) Eos % (Auto) Baso % (Auto) Neut # (Auto) Lymph # (Auto) [place] # (Auto) Eos # (Auto) Baso # [...] <Electronically signed by MD Rehan Isidro> 12/06/211745 [facility] Work Phone: [phone] Progress note Author William Esposito [facility] December 06, 2021 1:19pm Note Date/Time December 06, 2021 1: 19pm [facility] [address] [place] [address] Nephrology Progress Note Signed Patient: Juanita Redman MR#: [id number] : 1965 Acct:[id number] Age/Sex: 56 / F Adm Date: 2 Loc: Room: [address] [place] [address] Type: ADM IN Attending Dr: oHng Mcintosh DO Copies to: ~ Date of Service: 12/06/2021 Subjective Subjective Narrative: Mrs. Redman is a 56-year-old white female with history of COPD, smoker, alcohol abuse and hypothyroidism on levothyroxine who was transferred from [facility] on 12/04 for abnormal blood work [...] 1 g of calcium before transfer to [facility]. Today's creatinine is slightly [...] visible mass Skin: No rashes or bruises REHAB NURSING TECH: Awake,Alert, following simple command Musculoskeletal: No joint [...] 50.2 mls @ 100.4 mls/hr IV DAILY [facility] Stop: 12/04/22 13:59 Last Admin: 12/06/21 11:00 Dose: 100 mls/hr Thiamine HCl 200 mg/ Sodium (Chloride) 102 mls @ 204 mls/hr IV TID [facility] Stop: 12/04/22 21:59 Last Admin: 12/05/21 22:05 Dose: 204 mls/hr Levofloxacin (Levaquin) 750 mg in 150 mls @ 100 mls/hr IV Q48H [facility] Last Admin: 12/05/21 09:17 Dose: 100 mls/hr Ferric Sodium Gluconate Complex 250 mg/ Sodium Chloride 270 mls @ 135 mls/hr IVQAM [facility] Stop: 12/09/21 08:59 Last Admin: 12/06/21 11:01 Dose: 135 mls/hr Sodium Bicarbonate 150 meq/ (Dextrose) 1,150 mls @ 100 mls/hr IV .[id number] [facility] Stop: 12/06/21 20:59 Last Admin: 12/06/21 11:01 Dose: 100 mls/hr Levothyroxine Sodium (Levothyroxine 50 Mcg Tablet) 50 mcg PO DAILY.0630 [facility] Stop: 12/05/22 06:29 Last Admin: 12/06/21 05:30 [...] 100 Mg Tab.Er.24h) 100 mg PO DAILY [facility] Stop: 12/04/22 17:43 Last Admin: 12/06/21 11:12 Dose: Not Given Nicotine (Nicotine Patch 21 Mg/24hr 1 Each Patch.Td24) 1 each TRANSDERML DAILY [facility] Stop: 12/06/22 08:59 Omeprazole (Omeprazole 20 Mg [...] <Electronically signed by William Esposito MD> 12/06/21 0199 [facility] Work Phone: [phone] Progress note Author Hong Mcintosh [facility] December 05, 2021 5:23pm Note Date/Time December 05, 2021 5: 09pm [facility] [address] [place] [address] Hospitalist Progress Note Signed with Philippe Patient: Juanita Redman MR#: [id number] : 1965 Acct:[id number] Age/Sex: 56 / F Adm Date: 2 Loc: 3T Room: [address] [place] [address] Type: ADM IN Attending Dr: Hong Mcintosh [...] Lactated Ringer's IV 12/04/22 14:14 75 mls/hr .[id number] [facility] Administration Folic Acid 1 mg/ Dextrose [...] signed by Hong Mcintosh DO> 12/05/21 1722 [facility] Work Phone: [phone] Consult note Author Nilesh Oakley [facility] December 05, 2021 2:55pm Note Date/Time December 05, 2021 2: 55pm [facility] [address] [place] [address] Nephrology Consult Note Signed Patient: Juanita Redman MR#: [id number] : 1965 Acct:[id number] Age/Sex: 56 / F Adm Date: 2 Loc: Room: [address] [place] [address] Type: ADM IN Attending Dr: Hong Mcintosh [...] hypothyroidism on levothyroxine who was transferred from [facility] on 12/04 for abnormal blood work [...] 1 g of calcium before transfer to [facility]. Today's creatinine is slightly [...] 500 Mg Tablet) 500 mg PO BID.WITH.BFAST.LUNCH [facility] Stop: 12/05/22 07:59 Last Admin: 12/05/21 11:55 Dose: 500 mg Magnesium Sulfate (Magnesium Sulf 2gm-*Swfi*) 2 gm in 50 mls @ 25 mls/hr IV DAILY PRN PRN Reason: Magnesium Level < 1.5 Stop: 12/04/22 10:15 Potassium Chloride 20 meq/ (Lactated Ringer's) 1,010 mls @ 75 mls/hr IV .[id number] [facility] Stop: 12/04/22 14:14 Last Admin: 12/05/21 01:34 Dose: 75 mls/hr Folic Acid 1 mg/ Dextrose 50.2 mls @ 100.4 mls/hr IV DAILY [facility] Stop: 12/04/22 13:59 Last Admin: 12/05/21 09:17 Dose: 100 mls/hr Thiamine HCl 200 mg/ Sodium (Chloride) 102 mls @ 204 mls/hr IV TID [facility] Stop: 12/04/22 21:59 Last Admin: 12/05/21 09:17 Dose: 204 mls/hr Levofloxacin (Levaquin) 750 mg in 150 mls @ 100 mls/hr IV Q48H [facility] Last Admin: 12/05/21 09:17 Dose: 100 mls/hr Levothyroxine Sodium (Levothyroxine 50 Mcg Tablet) 50 mcg PO DAILY.0630 [facility] Stop: 12/05/22 06:29 Last Admin: 12/05/21 06:55 Dose: Not Given Metoprolol Succinate (Metoprolol Succinate 100 Mg Tab.Er.24h) 100 mg PO DAILY [facility] Stop: 12/04/22 17:43 Last Admin: 12/05/21 09:17 Dose: 100 mg Omeprazole (Omeprazole 20 Mg Capsule.Dr) 20 mg PO DAILY [facility] Stop: 12/05/22 08:59 Last Admin: 12/05/21 09:17 [...] Cloudy A Urine pH 5.5 Ur Specific [place] 1.013 Urine Protein 30 H Urine Glucose [...] <Electronically signed by MD Nilesh Oakley> 12/05/21 6611 [facility] Work Phone: [phone]) [id number] History and physical note Author Hong Mcintosh [facility] December 04, 2021 9:07pm Note Date/Time December 04, 2021 9: 07pm [facility] [address] [place] [address] Hospitalist H&P Signed Patient: Juanita Redman MR#: [id number] : 1965 Acct:[id number] Age/Sex: 56 / F Adm Date: 2 Loc: Room: [address] [place] [address] Type: ADM IN Attending Dr: Hong Mcintosh DO Copies to: DO Hong Rose, ~ HPI DATE OF EXAMINATION: 12/04/21 CHIEF COMPLAINT: weakness, passing out, lightheadedness. HISTORY OF PRESENT ILLNESS: This is a 56-year-old woman who presented to the [facility] emergency room yesterday evening with complaints of [...] supposed to come get established with a curtain drier in [place]. She also was supposed to see a rural mail contractor because she has probably rheumatoid arthritis and she has had a rash on her back for many decades. She has a fullness in the supraclavicular regions on both right and the left side. She says that the [facility] told her that these were lipomas [...] the age of 17. I gave her [id number] history. In terms of alcohol use she [...] except as mentioned elsewhere in the documentation. [facility] Vaccinated for COVID-19?: No Medical History (Updated [...] % (Auto) 13.0 % (.) 12/04/21 11:47 [place] % (Auto) 13.9 % (.) 12/04/21 11:47 Eos % (Auto) 1.2 % (.) 12/04/21 11:47 Baso % (Auto) 0.4 % (.) 12/04/21 11:47 Neut # (Auto) 4.5 x10E3/uL (1.8-7.7) 12/04/21 11:47 Lymph # (Auto) 0.8 x10E3/uL (1.00-4.8) L 12/04/21 11:47 [place] # (Auto) 0.9 x10E3/uL (0.0-0.8) H 12/04/21 [...] <Electronically signed by Hong Mcintosh DO> 12/04/212106 [facility] Work Phone: Evaluation note* Diagnosis Onset [...] stenosis acute Vasovagal syncope acute [facility] Work Phone: Evaluation noteNo assessment information available [facility] Work Phone: Evaluation note* Diagnosis Onset Date Resolution Status GERD (gastroesophageal reflux disease) acute Hypertension acute Hypomagnesemia acute Hypothyroid acute Lupus acute Paroxysmal atrial fibrillation with RVR acute Rheumatoid arthritis acute Stress-induced cardiomyopathy acute Type 2 myocardial infarction acute [facility] Work Phone: Evaluation note* Diagnosis Onset Date [...] cardiomyopathy acute Type 2 myocardial infarction acute [facility] Work Phone: History general Narrative - Reported* Type Description Date Medical History COPD Medical History HYPOTHYROIDISM Medical History ALCOHOL ABUSE Medical History SMOKER Medical History ANEMIA Medical History HYPOMAGNESEMIA Medical History HYPOCALCEMIA Medical History HYDRONEPHROSIS Surgical History X 2 Surgical History D&C X2 Surgical History LUMPECTOMY ON BOTH BREAST Surgical History 2 HEART ABLASIONS Hospitalization History SEE ABOVE Hospitalization History DEHYDRATION 12/2021 [employer] Other Hospital Discharge instructions Additional Instructions Dietary recommendations: - Magic cup (or equivalent) twice daily with meals[facility] Work Phone: Hospital Discharge instructions Additional Instructions Follow-up with your primary care doctor Return to ED if develop worsening symptoms or concerns Take your medications [facility] Work [facility]: Hospital Discharge instructionsAmbulatory Orders* Referral to Cardiology Location: None Selected * Referral to Rheumatology Location: None Selected [facility] Work Phone: Hospital Discharge instructionsAmbulatory Orders* Referral to Cardiology Location: None Selected [facility] Work Phone: Summary Purpose Family History No [...] section and content) DATE CREATED AUTHOR 09/29/2017 [facility] DATE CREATED AUTHOR AUTHOR'S ORGANIZ ATION 01/07/2022 [facility] DATE CREATED AUTHOR AUTHOR'S ORGANIZ ATION 02/02/2022 [facility] DATE CREATED AUTHOR AUTHOR'S ORGANIZ ATION 02/24/2024 [facility] Care Teams (unrecognized sec [...] Active Member Role Status Dates Katie Velasquez SKEIN WINDING OPERATOR WORD PROCESSOR OPERATOR-C Primary Care Provider Active Team Status: Inactive Member Role Status Dates Katie Velasquez SKEIN WINDING OPERATOR WORD PROCESSOR OPERATOR-C Primary Care Provider, Attending Provider Active Start: September 28, 2023 End: September 28, 2023 Team Status: Inactive Member Role Status Dates Katie Velasquez APRN WORD PROCESSOR OPERATOR-C Primary Care Provider, Attending Provider Active Start: December 27, 2023 End: December 27, 2023 Team Status: Inactive Member Role Status Dates Katie Velasquez APRN WORD PROCESSOR OPERATOR-C Primary Care Provider, Attending Provider Active Start: [...] BE BASED ON THE PRIMARY CLINICAL RECORDS. [employer] provides no warranty or guarantee of the accuracy or completeness of information in this document.
[2024-04-22 05:48] LABS: Basophils Absolute Auto 0.1 10^3/uL (0.0-0.1); Basophils Percent Auto 0.6 % (0.2-2.0); Eosinophils Absolute Auto 0.2 10^3/uL (0.0-0.7); Eosinophils Percent Auto 2.1 % (0.9-7.0); Hematocrit 27.1 % (36.0-48.0); Hemoglobin 8.7 g/dL (12.0-16.0); Immature Granulocytes Abs Auto 0.08 10^3/uL (0.00-0.03); Immature Granulocytes Pct Auto 0.8 % (0.0-0.5); Lymphocytes Percent Auto 21.2 % (20.5-60.0); Mean Corpuscular HGB Conc 32.1 g/dL (29.9-35.2); Mean Corpuscular Hemoglobin 32.2 pg (26.7-34.0); Mean Corpuscular Volume 100.4 fL (81.0-99.0); Mean Platelet Volume 8.8 fL (9.5-13.5); Monocytes Absolute Auto 0.9 10^3/uL (0.3-0.8); Monocytes Percent Auto 9.6 % (1.7-12.0); Neutrophils Absolute Auto 6.3 10^3/uL (1.4-6.5); Neutrophils Percent Auto 65.7 % (43.0-75.0); Platelet Count 201 10^3/uL (150-450); Red Cell Distribution Width 14.3 % (11.0-15.0); White Blood Count 9.5 10^3/uL (4.0-11.0)
--- NOTE | 2024-04-22 06:00 | CA_ITS ---
Patient Name: ORESTES ALVARES MR#: [id number] : 1965 Exam Date: 04/22/2024 Ordering Doctor: LATISHA JONES ECHOCARDIOGRAM REPORT PROCEDURE: CA ECHO DOPPLER COMPLETE INDICATIONS: A-fib; CHF exacerbation COMPARISON: None. DESCRIPTION: COMPLETE ECHOCARDIOGRAM Real-time transthoracic echocardiography with 2D, M-mode, spectral and color flow Doppler performed. QUALITY: Technical quality was good. LEFT VENTRICLE: Normal chamber size. Mild concentric left ventricular hypertrophy. LV EF: Lower limits of normal left ventricular ejection fraction, (50-55%). DIASTOLIC: Not adequately assessed due to heart rhythm. ATRIAL SEPTUM: LEFT ATRIUM: Mild dilatation. RIGHT ATRIUM: Severe dilatation. RIGHT VENTRICLE: Normal chamber size. Reduced right ventricular systolic function. TRICUSPID VALVE: Normal mobility and thickness. No stenosis with mild to moderate regurgitation. Moderate pulmonary hypertension.RVSP 56mmHg MITRAL VALVE: Normal mobility and thickness. No evidence of mitral valve stenosis. Mitral annular calcification. Mild mitral regurgitation. AORTIC VALVE: Normal trileaflet appearance. No visible sclerosis. Normal leaflet mobility. No evidence of aortic valve stenosis. DVI 0.6. No aortic regurgitation. AORTIC ROOT: Normal diameter and appearance. PULMONIC VALVE: Normal thickness and mobility. No stenosis. Trivial regurgitation. PERICARDIUM: No evidence of pericardial effusion. IVC: Normal size measuring 2.1cm with no collapse. PLEURA: CONCLUSION: Mild concentric left ventricle hypertrophy Low normal left ventricle systolic function, EF 50-55% without wall motion abnormalities Moderate pulmonary hypertension, RVSP 56 mmHg Reduced right ventricle systolic function Mild mitral regurgitation Mild to moderate tricuspid regurgitation Adult Echocardiography Procedure Report Left Ventricle LVEDD (3.7 - 5.6 cm): 4.85 cm LVESD (2.2 - 4.0 cm): 3.51 cm LVIVS thickness (0.6 - 1.2 cm): 1.06 cm LVPW thickness (0.5 - 1.0 cm): 1.30 cm e': 0.15 m/s E - e': 5.75 LVOT Max Gradient: 2.11 mm[Hg] LVOT Area (cm2): 0.73 m/s Peak Velocity (LVOT): 0.73 m/s Mean Velocity (LVOT): 0.49 m/s LVOT Diameter 1.84 cm Left Ventricular Ejection Fraction: 57.42 % Left Atrium LA Volume Index (2D A2C): 42.28 ml/m2 Left Atrium Systolic Dimension: 4.66 cm Mitral Valve Mitral Valve E-Wave Peak Velocity: 0.85 m/s Right Ventricle RV Internal Diastolic Dimension: 3.60 cm Aorta AO Root Diam: 3.19 cm Ascending Ao Diam: 3.26 cm Aortic Valve AoV Area (Peak Nuno): 1.69 cm2, 1.73 cm2 AoV Area (VTI): 1.52 cm2, 1.51 cm2 Peak Velocity(Antegrade Flow): 1.12 m/s, 1.17 m/s Peak Gradient(Antegrade Flow): 4.98 mm[Hg], 5.47 mm[Hg] Mean Velocity(Antegrade Flow): 0.81 m/s, 0.83 m/s Mean Gradient(Antegrade Flow): 2.96 mm[Hg], 3.10 mm[Hg] Velocity Time Integral: 23.90 cm, 23.72 cm Tricuspid Valve Peak Velocity (Regurgitant Flow): 2.40 m/s, 2.93 m/s, 3.47 m/s Pulmonic Valve Peak Velocity: 0.93 m/s Peak Gradient: 3.88 mm[Hg], 3.04 mm[Hg] Right Atrium Right Atrium Systolic Pressure: Dictated by: Lyn Burleson MD on 04/22/2024 at 12:57 Approved by: Lyn Burleson MD on 04/22/2024 at 13:08
[2024-04-22 06:10] LABS: Alanine Aminotransferase 26 U/L (14-59); Albumin Globulin Ratio 0.4; Albumin Level 1.8 g/dL (3.4-5.0); Alkaline Phosphatase 200 U/L (46-116); Anion Gap 17.5; Aspartate Amino Transferase 72 U/L (15-37); BUN Creatinine Ratio 9.2; Bilirubin Total 0.5 mg/dL (0.2-1.0); Calcium 7.9 mg/dL (8.5-10.1); Carbon Dioxide 19.6 mmol/L (21.0-32.0); Chloride 102 mmol/L (98-107); Estimated GFR (African America 34 (>=60 mL/min/1.73m^2); Estimated GFR (Non-African Ame 28 (>=60 mL/min/1.73m^2); Globulin 4.1 g/dL; Glucose 80 mg/dL (74-106); Potassium 4.1 mmol/L (3.5-5.1); Sodium 135 mmol/L (136-145); Total Protein 5.9 g/dL (6.4-8.2)
[2024-04-22 06:21] LABS: Chol HDL Ratio 1.7; Cholesterol 126 mg/dL (<=200); HDL Cholesterol 73 mg/dL (40-60); Thyroid Stimulating Hormone 18.877 uIU/mL (0.358-3.740); Triglycerides 113 mg/dL (<=150); VLDL CHOLESTEROL 22.6 mg/dL
[2024-04-22 06:42] LABS: Lactate/Lactic Acid 2.1 mmol/L (0.4-2.0); Magnesium 0.9 mg/dL (1.8-2.4)
--- NOTE | 2024-04-22 08:11 | P.HP_ITS ---
HPI H&P: HPI History of Present Illness Chief complaint: CHF, CKD Narrative: Patient is a 59 year old female with past medical history of hypothyroidism, congestive heart failure, paroxysmal A-fib (prior ablation and no current anticoagulation), GERD, CKD stage IV, smoker, and Alcoholism. Patient also with history of medical noncompliance. She has not seen a doctor in over 6 months. She reports increased bilateral lower extremity swelling making both her feet have sores and painful to walk on. The swelling is all the way up into her abdomen. She has also been having shortness of breath on exertion. She denies fevers or chills. She smokes and has a smokers cough . She also does not take her medications like she is suppose to. She was admitted at this facility about 1.5 years ago for acute alcohol withdrawal with several electrolyte abnormalities and hepatic encephalopathy. She reports she has stopped drinking as much and 1/5 of vodka will last her a week. Prior to admission was 2 shots of vodka. ER Findings: Chest X-ray showed LLL edema vs infiltrate, proBNP 86076, Trop 22, Mag 0.9, Hb 8.7, Sodium 135, Albumin 1.8, TSH 18, WBC's 9.5. Lactate 2.8 and AST 72. Patient was given Lasix 40mg IV x1 and a willard catheter was placed for strict I&O's. Patient was admitted for acute on chronic CHF, anasarca and correction of her electrolyte abnormalities and malnourishment Opioid HPI Opioid Management Most Recent Pain and Opioid Data: Last Pain Scale 8 04/22/24 07:58 04/22/24 Last Pain Assessment 04/22/24 11:03 Last ORT Total Score 0 04/22/24 01:18 04/22/24 Last ORT Risk Category Low Risk 04/22/24 01:18 04/22/24 Ur Phencyclidine Scrn Negative (NEGATIVE) 02/13/23 05:25 1109/30 Review of Systems ROS Narrative ROS: a complete review of systems were reviewed with patient and are positive as below or listed in History of Chief Complaint. General: no fever, chills, night sweats Head: no headache, trauma, visual changes, nausea or vomiting Skin: no reported rashes, itching or sores Eyes: no blurriness of vision Ears: no reported hearing loss, vertigo, earache, or tinnitus Throat: no sore throat, hoarseness, swelling of neck, or tongue pain Heart: no chest pain Lungs: shortness of breath and cough GI: no diarrhea or vomiting/nausea Urinary: no urinary urgency, frequency or pain Neuro: pain from swelling HEM: no bleeding issues or bruising ENDO: thyroid problems Psych: anxiety or depression PFSH PFSH Medical History GERD (gastroesophageal reflux disease) ?K21.9 - Gastro-esophageal reflux disease without esophagitis (ICD-10) Stomach ulcer ?K25.9 - Gastric ulcer, unspecified as acute or chronic, without hemorrhage or perforation (ICD-10) Sigmoid diverticulosis ?K57.30 - Diverticulosis of large intestine without perforation or abscess without bleeding (ICD-10) Caries involving multiple surfaces of tooth ?K02.9 - Dental caries, unspecified (ICD-10) Renal cyst, acquired, left ?N28.1 - Cyst of kidney, acquired (ICD-10) Anxiety and depression ?F41.9 - Anxiety disorder, unspecified (ICD-10) ?F32.A - Depression, unspecified (ICD-10) Hypothyroidism ?E03.9 - Hypothyroidism, unspecified (ICD-10) Atrial fibrillation ?I48.91 - Unspecified atrial fibrillation (ICD-10) Smoker ?F17.200 - Nicotine dependence, unspecified, uncomplicated (ICD-10) Hypertension ?I10 - Essential (primary) hypertension (ICD-10) Kidney failure ?N19 - Unspecified kidney failure (ICD-10) Alcohol abuse ?F10.10 - Alcohol abuse, uncomplicated (ICD-10) Surgical History History of endometrial ablation ?Z98.890 - Other specified postprocedural states (ICD-10) H/O section ?Z98.891 - History of uterine scar from previous surgery (ICD-10) Status post breast biopsy ?Z98.890 - Other specified postprocedural states (ICD-10) History of lumpectomy of both breasts ?Z98.890 - Other specified postprocedural states (ICD-10) S/P ablation of atrial fibrillation ?Z98.890 - Other specified postprocedural states (ICD-10) ?Z86.79 - Personal history of other diseases of the circulatory system (ICD- 10) Family History Father Family history of CHF (congestive heart failure) Family history of diabetes mellitus Family history of hypertension Family history of myocardial infarction Mother Family history of cancer Family history of diabetes mellitus Family history of hypertension Family history of myocardial infarction Brother Family history of hypertension Family history of myocardial infarction Other Family history of COPD (chronic obstructive pulmonary disease) Social History Within the past year, how often did you have a drink containing alcohol: 2-3 times a week Smoking status: Current every day smoker Non-prescribed substance use: denies use Previous occupational history: retired Highest level of school completed/degree received: some college, no degree Are you now , , , , never or living with a partner: In a typical week, how many times do you talk on the telephone with family, friends, or neighbors: 3 or more times per week How often do you get together with friends or relatives: 3 or more times per week Little interest or pleasure in doing things: not at all Feeling down, depressed, or hopeless: not at all Feel stressed/tense/nervous/anxious/difficulty sleeping: not at all Do you think of yourself as: straight/heterosexual Gender Identity: female Meds Home Medications and Allergies Home Medications ?Medication ?Instructions ?Recorded ?Confirmed ?Type cholecalciferol (vitamin D3) 125 5,000 unit PO DAILY PRN supplement 02/13/23 04/22/24 History mcg (5,000 unit) capsule levothyroxine 100 mcg tablet 100 mcg PO DAILY 02/13/23 04/22/24 History thiamine mononitrate (vit B1) 100 100 mg PO DAILY 02/13/23 04/22/24 History mg tablet walker #1 ea 02/17/23 Rx omeprazole 20 mg capsule,delayed 20 mg PO DAILY 01/25/24 04/22/24 History release magnesium oxide 400 mg (241.3 mg 400 mg PO BID 04/22/24 04/22/24 History magnesium) tablet metoprolol tartrate 100 mg tablet 150 mg PO DAILY 04/22/24 04/22/24 History Allergies Allergy/AdvReac Type Severity Reaction Status Date / Time cephalexin (From Keflex) Allergy swelling Verified 02/19/24 14:43 prednisone Allergy swelling Verified 02/19/24 14:43 Exam Narrative Exam Narrative: General: Patient is alert, and oriented to person, place and time with normal affect, she is short of breath with conversing Skin: significant bilateral lower extremity edema +4 pitting that extends from the top of the feet all the way up to the abdomen. She has a sore on the bottom of the right heel with drainage. Head: atraumatic, acephalic Eyes: PERRLA, no nystagmus present, conjunctiva clear, no scleral icterus Ears: normal gross auditory acuity Heart: abnormal rate and rhythm, no murmurs/rubs/gallops Lungs: audible wheezes, and crackles and diminished breath sounds all lung márquez Abdomen: anasarca noted, no palpable masses or pain Musculoskeletal: see skin exam Neuro: CN II-X grossly intact Constitutional Vital Signs, click to edit/add: Last Vital Signs Temp 98.6 F 04/22/24 07:14 Pulse 79 04/22/24 07:38 Resp 18 04/22/24 07:14 BP 164/84 H 04/22/24 07:14 Pulse Ox 96 04/22/24 07:14 O2 Del Method Room Air 04/22/24 07:14 Results Labs Labs: Short CBC 04/21/24 04/22/24 Range/Units 23:40 05:43 WBC 10.3 9.5 (4.0-11.0) 10^3/uL Hgb 9.5 L 8.7 L (12.0-16.0) g/dL Hct 29.1 L 27.1 L (36.0-48.0) % Plt Count 229 201 (150-450) 10^3/uL BMP 04/21/24 04/22/24 23:40 05:24 Sodium 136 135 L Potassium 3.7 4.1 Chloride 103 102 Carbon Dioxide 19.7 L 19.6 L BUN 17.0 17.0 Creatinine 1.84 H 1.84 H Glucose 72 L 80 Calcium 7.7 L 7.9 L Liver Function 04/21/24 04/22/24 Range/Units 23:40 05:24 Total Bilirubin 0.6 0.5 (0.2-1.0) mg/dL AST 92 H 72 H (15-37) U/L ALT 25 26 (14-59) U/L Alkaline Phosphatase 215 H 200 H (46-116) U/L Albumin 2.0 L 1.8 L (3.4-5.0) g/dL Urine 04/22/24 Range/Units 00:50 Urine Color Yellow (YELLOW) Urine Clarity Clear (CLEAR) Urine pH 6.0 (5.0-9.0) Ur Specific [place] >=1.030 A (1.005-1.025) Urine Protein 100 A (NEG/TRACE) mg/dL Urine Glucose (UA) Negative (NEGATIVE) mg/dL Assessment and Plan Assessment and Plan (1) Acute on chronic heart failure: Assessment and Plan: [place] [address], I have no prior echocardiograms. Also with pulmonary edema in the LLL on chest X-ray and significant edema burden with anasarca on exam making it difficult for her to ambulate. She does have chronic kidney disease and history of alcoholism. Will check Echo today, Cardiology consult and appreciate their input. Continue diuresis with Lasix 20mg IV BID as patient does not take lasix at home. Will add some IV Albumin as patient is also third spacing. Monitor strict I&O's, daily weights, fluid restriction of 1.5L and salt restriction. Telemetry. Monitor renal function closely with diuresis. Continue metoprolol, add losartan for better blood pressure control. Qualifiers: Heart failure type: unspecified Qualified Code(s): I50.9 - Heart failure, unspecified (2) Hypomagnesemia: Assessment and Plan: due to severe malnutrition. Nutrition consult, replace with oral and IV. Monitor daily (3) Atrial fibrillation: Assessment and Plan: prior ablation but currently in afib, continue with therapeutic lovenox for now. Appears she was not taking anticoagulation in the past due to high fall risk with her alcohol abuse. May consider this or future placement of filter. Would like cardiology input on this. Continue rate control with metoprolol Qualifiers: Atrial fibrillation type: longstanding persistent Qualified Code(s): I48.11 - Longstanding persistent atrial fibrillation (4) Hypocalcemia: Assessment and Plan: due to severe malnutrition. Nutrition consult, replace with oral, monitor daily (5) Hypoalbuminemia due to protein-calorie malnutrition: Assessment and Plan: Nutrition consult add pro-stat and Ensure (6) Hypothyroidism: Assessment and Plan: elevated TSH, will increase levothryoxine to 125mcg daily Qualifiers: Hypothyroidism type: acquired Qualified Code(s): E03.9 - Hypothyr oidism, unspecified (7) Anxiety and depression: Assessment and Plan: not currently taking any medications for this, was on Vraylar in the past (8) GERD (gastroesophageal reflux disease): Assessment and Plan: continue omeprazole Qualifiers: Esophagitis presence: esophagitis presence not specified Qualified Code(s): K21.9 - Gastro-esophageal reflux disease without esophagitis (9) Kidney failure: Assessment and Plan: monitor renal function closely with diuresis, currently Creatinine is 1.84 Qualifiers: Chronic kidney disease stage: stage 4 (GFR 15-29) Renal failure chronicity: chronic Qualified Code(s): N18.4 - Chronic kidney disease, stage 4 (severe) (10) Alcohol abuse: Assessment and Plan: prior use, monitor. Appears patient has chronic alcoholic hepatitis with AST elevation and Alk Phos elevation. She had RUQ ultrasound and CT ab/pelvis a year ago with no liver pathology noted. (11) Lactic acidosis: Assessment and Plan: lactate 2.8, most likely from chronic renal insufficiency. (12) Frequent falls: Assessment and Plan: order placed for pt/ot and inability to ambulate on legs (13) Hypertension: Assessment and Plan: add losartan Qualifiers: Hypertension type: primary hypertension Qualified Code(s): I10 - Essential (primary) hypertension Plan Patient is a full code Lovenox for DVT prophylaxis Patient is inpatient status and is expected to stay 3-4 days for significant diuresis and correction of severe electrolyte abnormalities. Urinary Catheter Management Urinary Catheter Management Urethral: Cath placed during this visit: yes Urethral indwelling: Yes Reason for continuing: measure accurate output Insertion date: 04/22/24 Insertion time: 00:53
[2024-04-22] MEDS: METOPROLOL TARTRATE 100 MG TABLET 150 MG PO (08:20)
[2024-04-22] MEDS: OMEPRAZOLE 20 MG CAPSULE.DR PO (08:20)
[2024-04-22] MEDS: THIAMINE MONONITRATE (VIT B1) 100 MG TABLET PO (08:20)
[2024-04-22] MEDS: MAGNESIUM SULFATE IN WATER 4 GM/100 ML PIGGYBACK IV (08:20)
[2024-04-22] MEDS: FUROSEMIDE 20 MG/2 ML VIAL IVP (08:20)
[2024-04-22] MEDS: ENOXAPARIN SODIUM 80 MG/0.8 ML SYRINGE SUBQ (08:20)
[2024-04-22] MEDS: MAGNESIUM OXIDE 400 MG TABLET PO ×2 (08:20→21:08)
[2024-04-22] MEDS: LOSARTAN POTASSIUM 25 MG TABLET PO (09:10)
--- NOTE | 2024-04-22 11:16 | CM.NOTE ---
Rounds made with Dr. Kaiser, no discharge. PT and OT will evaluate pt today for discharge planning. Dr. Kaiser will also order nutritional consult and wound to see pt.
--- NOTE | 2024-04-22 12:03 | DIETREC ---
Recommend 237 mL Ensure Original TID w/meals. Also recommend 30 mL PRO-stat BID. Nutrition assessment to follow.
--- NOTE | 2024-04-22 12:48 | ECG_ITS ---
[facility] Test Date: 2024-04-22 Pat Name: ORESTES ALVARES Department: Room: [facility] Gender: Female Card Clothier: : 1965 Requested By: Lyn Burleson Order Number: [id number] Reading MD: SHANAE SHEEHAN Measurements Intervals [place] Rate: 66 P: VA: QRS: 47 QRSD: 80 T: 72 QT: 401 QTc: 421 Interpretive Statements ATRIAL FIBRILLATION Low voltage across the precordium Nonspecific T wave changes, can't exclude septal ischemia ABNORMAL RHYTHM ECG Electronically Signed On 04-22-2024 20:40:00 EST by SHANAE SHEEHAN
--- NOTE | 2024-04-22 13:29 | SWNOTE1 ---
SW met with pt to discuss dc needs. Pt lives at home with significant other. Pt has a walker and wheelchair at home. She voiced that she was walking around at home with no devices awhile ago. SW advised pt that at this time therapy is recommending SNF for a short term rehab stay for strengthening. SW explained what this was. Pt did ask if she could go there for therapy and then go home. SW advised that she would not be able to do that. SW and pt also spoke about HH and the difference between HH and SNF. SW did ask pt how she was going to get up out of bed and walk to bathroom or kitchen? Pt stated she will stay in bed. SW advised pt that it would be beneficial for her to go to rehab to get stronger. Pt voiced she will have to talk to her significant other, but at this time she prefers HH and is refusing SNF. Pt does not have a preference on HH. SW to check and see who takes [employer] insurance. SW to check back with pt tomorrow. Pt did state to SW that once the fluid is off her legs she will be able to get around better. She stated right now her legs are hard to lift and it makes it hard to walk.
--- NOTE | 2024-04-22 14:15 | SWNOTE1 ---
[facility] would have to review and send to there third democrat manager advanced and it could take 5-7 days to hear back. SW sent referral to [facility].
--- NOTE | 2024-04-22 14:54 | SWNOTE1 ---
[facility] does not accept that insurance. SW faxed referral to [facility].
--- NOTE | 2024-04-22 17:35 | P.CACN_ITS ---
History of Present Illness History of Present Illness Consult date: 04/22/24 Requesting physician: Gabriela Kaiser Chief complaint: CHF, CKD Narrative: The patient is a 59-year-old female with prior history of paroxysmal A-fib and prior history of ablation, hypertension, hypothyroidism, chronic kidney disease, tobacco and alcohol abuse. Patient presented with worsening legs edema which she stated it started around November and it has been progressively worsening and now it is generalized edema. Also she reports some shortness of breath and cough but no fever or chills. She denies dizziness or palpitations. She denies orthopnea or paroxysmal nocturnal dyspnea. She smokes about 1 pack/day however she states that some days she does not smoke at all. She drinks about 4 shots of flavored vodka a day. She denies illicit drugs On arrival she was found to be in A-fib. Her proBNP was 35,000, troponin normal. Hemoglobin 8.7, creatinine 1.84, potassium 4.1, GFR 34, magnesium 0.9, albumin 1.8 and TSH 18. Chest x-ray showed left lower lobe opacity. She was given a Lasix 40 mg IV once and started on 20 mg IV twice daily however she is not diuresing very well Review of Systems ROS Narrative All systems were reviewed and they were negative except for the positive findings noted above in the history PFSH PFSH Medical History GERD (gastroesophageal reflux disease) ?K21.9 - Gastro-esophageal reflux disease without esophagitis (ICD-10) Stomach ulcer ?K25.9 - Gastric ulcer, unspecified as acute or chronic, without hemorrhage or perforation (ICD-10) Sigmoid diverticulosis ?K57.30 - Diverticulosis of large intestine without perforation or abscess without bleeding (ICD-10) Caries involving multiple surfaces of tooth ?K02.9 - Dental caries, unspecified (ICD-10) Renal cyst, acquired, left ?N28.1 - Cyst of kidney, acquired (ICD-10) Anxiety and depression ?F41.9 - Anxiety disorder, unspecified (ICD-10) ?F32.A - Depression, unspecified (ICD-10) Hypothyroidism ?E03.9 - Hypothyroidism, unspecified (ICD-10) Atrial fibrillation ?I48.91 - Unspecified atrial fibrillation (ICD-10) Smoker ?F17.200 - Nicotine dependence, unspecified, uncomplicated (ICD-10) Hypertension ?I10 - Essential (primary) hypertension (ICD-10) Kidney failure ?N19 - Unspecified kidney failure (ICD-10) Alcohol abuse ?F10.10 - Alcohol abuse, uncomplicated (ICD-10) Surgical History History of endometrial ablation ?Z98.890 - Other specified postprocedural states (ICD-10) H/O section ?Z98.891 - History of uterine scar from previous surgery (ICD-10) Status post breast biopsy ?Z98.890 - Other specified postprocedural states (ICD-10) History of lumpectomy of both breasts ?Z98.890 - Other specified postprocedural states (ICD-10) S/P ablation of atrial fibrillation ?Z98.890 - Other specified postprocedural states (ICD-10) ?Z86.79 - Personal history of other diseases of the circulatory system (ICD- 10) Family History Father Family history of CHF (congestive heart failure) Family history of diabetes mellitus Family history of hypertension Family history of myocardial infarction Mother Family history of cancer Family history of diabetes mellitus Family history of hypertension Family history of myocardial infarction Brother Family history of hypertension Family history of myocardial infarction Other Family history of COPD (chronic obstructive pulmonary disease) Social History Within the past year, how often did you have a drink containing alcohol: 2-3 times a week Smoking status: Current every day smoker Non-prescribed substance use: denies use Previous occupational history: retired Highest level of school completed/degree received: some college, no degree Are you now , , , , never or living with a partner: In a typical week, how many times do you talk on the telephone with family, friends, or neighbors: 3 or more times per week How often do you get together with friends or relatives: 3 or more times per week Little interest or pleasure in doing things: not at all Feeling down, depressed, or hopeless: not at all Feel stressed/tense/nervous/anxious/difficulty sleeping: not at all Do you think of yourself as: straight/heterosexual Gender Identity: female Meds Home Medications and Allergies Home Medications ?Medication ?Instructions ?Recorded ?Confirmed ?Type cholecalciferol (vitamin D3) 125 5,000 unit PO DAILY PRN supplement 02/13/23 04/22/24 History mcg (5,000 unit) capsule levothyroxine 100 mcg tablet 100 mcg PO DAILY 02/13/23 04/22/24 History thiamine mononitrate (vit B1) 100 100 mg PO DAILY 02/13/23 04/22/24 History mg tablet walker #1 ea 02/17/23 Rx omeprazole 20 mg capsule,delayed 20 mg PO DAILY 01/25/24 04/22/24 History release magnesium oxide 400 mg (241.3 mg 400 mg PO BID 04/22/24 04/22/24 History magnesium) tablet metoprolol tartrate 100 mg tablet 150 mg PO DAILY 04/22/24 04/22/24 History Allergies Allergy/AdvReac Type Severity Reaction Status Date / Time cephalexin (From Keflex) Allergy swelling Verified 02/19/24 14:43 prednisone Allergy swelling Verified 02/19/24 14:43 Exam Narrative Exam Narrative: She is alert, oriented, not in apparent distress HEENT within normal limits Neck supple, normal range of motion, no carotid bruit, jugular venous pressure is elevated Lungs diffuse wheezes, no rhonchi or crackles Cardiovascular system regular irregularity, normal S1 and S2, no murmur or gallop or click Extremities +2 edema bilaterally and it involves the thighs and also the upper extremities. Right foot and the lower portion of the right leg appears to be red Neurological examination grossly normal Constitutional Vital Signs, click to edit/add: Last Vital Signs Temp 97.8 F 04/22/24 16:15 Pulse 70 04/22/24 16:15 Resp 18 04/22/24 16:15 BP 130/75 04/22/24 16:15 Pulse Ox 93 L 04/22/24 16:15 O2 Del Method Room Air 04/22/24 16:15 Results Labs and Meds Lab results: Cardiac Enzymes 04/21/24 04/22/24 Range/Units 23:40 05:24 AST 92 H 72 H (15-37) U/L Lipids 04/22/24 Range/Units 05:43 Triglycerides 113 (<=150) mg/dL Cholesterol 126 (<=200) mg/dL HDL Cholesterol 73 H (40-60) mg/dL Cholesterol/HDL Ratio 1.7 CBC 04/21/24 04/22/24 Range/Units 23:40 05:43 WBC 10.3 9.5 (4.0-11.0) 10^3/uL RBC 2.87 L 2.70 L (4.20-5.40) 10^6/uL Hgb 9.5 L 8.7 L (12.0-16.0) g/dL Hct 29.1 L 27.1 L (36.0-48.0) % Plt Count 229 201 (150-450) 10^3/uL Neut # (Auto) 7.6 H 6.3 (1.4-6.5) 10^3/uL Lymph # (Auto) 1.5 2.0 (1.2-3.8) 10^3/uL [place] # (Auto) 1.0 H 0.9 H (0.3-0.8) 10^3/uL Eos # (Auto) 0.1 0.2 (0.0-0.7) 10^3/uL Baso # (Auto) 0.1 0.1 (0.0-0.1) 10^3/uL Comprehensive Metabolic Panel 04/21/24 04/22/24 Range/Units 23:40 05:24 Sodium 136 135 L (136-145) mmol/L Potassium 3.7 4.1 (3.5-5.1) mmol/L Chloride 103 102 (98-107) mmol/L Carbon Dioxide 19.7 L 19.6 L (21.0-32.0) mmol/L BUN 17.0 17.0 (7.0-18.0) mg/dL Creatinine 1.84 H 1.84 H (0.55-1.02) mg/dL Glucose 72 L 80 (74-106) mg/dL Calcium 7.7 L 7.9 L (8.5-10.1) mg/dL AST 92 H 72 H (15-37) U/L ALT 25 26 (14-59) U/L Alkaline Phosphatase 215 H 200 H (46-116) U/L Total Protein 6.1 L 5.9 L (6.4-8.2) g/dL Albumin 2.0 L 1.8 L (3.4-5.0) g/dL Intake and Output 01/13/25 01/13/25 01/13/25 07:59 15:59 23:59 Intake Total 200 / 200 100 / 100 Output Total 600 / 600 200 / 200 Balance -400 / -400 100 / -100 -200 / -100 Intake: Oral 200 / 200 IV 100 / 100 Magnesium Sulfate in Water 4 gm 100 / 100 In 100 ml @ 50 mls/hr IV ONCE ONE Rx#:[id number] Output: Urine Amount (Catheter) 600 / 600 200 / 200 Urethral 600 / 600 200 / 200 Other: Weight 86.6 kg EKG 04/22/2024 showed atrial fibrillation with controlled ventricular rate, low voltage, right axis deviation, possible old septal infarct Echo 04/22/2024 Low normal left ventricular systolic function, ejection fraction 50 to 55% Mild mitral regurgitation Mild to moderate tricuspid regurgitation Moderate pulmonary hypertension, RVSP 56 mmHg Assessment and Plan Assessment and Plan (1) Acute on chronic heart failure: Assessment and Plan: Due to fluid retention, also hypoalbuminemia and hypothyroidism are contributing Qualifiers: Heart failure type: unspecified Qualified Code(s): I50.9 - Heart failure, unspecified (2) Atrial fibrillation: Assessment and Plan: Patient has history of A-fib and ablation. Ventricular rate is controlled on beta-misha. She was started on Lovenox for anticoagulation Qualifiers: Atrial fibrillation type: longstanding persistent Qualified Code(s): I48.11 - Longstanding persistent atrial fibrillation (3) Valvular heart disease: Assessment and Plan: Including mild mitral regurgitation and mild to moderate tricuspid regurgitation (4) Pulmonary hypertension: Assessment and Plan: Moderate, probably due to left heart failure, in addition she might have underlying COPD and sleep apnea (5) Hypertension: Qualifiers: Hypertension type: primary hypertension Qualified Code(s): I10 - Essential (primary) hypertension (6) Alcohol abuse: (7) Tobacco abuse: (8) Hypothyroidism: Qualifiers: Hypothyroidism type: acquired Qualified Code(s): E03.9 - Hypothyroidism, unspecified (9) Kidney failure: Qualifiers: Renal failure chronicity: chronic Chronic kidney disease stage: stage 4 (GFR 15-29) Qualified Code(s): N18.4 - Chronic kidney disease, stage 4 (severe) (10) Hypomagnesemia: (11) Hypocalcemia: (12) Hypoalbuminemia due to protein-calorie malnutrition: (13) Anxiety and depression: (14) GERD (gastroesophageal reflux disease): Qualifiers: Esophagitis presence: esophagitis presence not specified Qualified Code(s): K21.9 - Gastro-esophageal reflux disease without esophagitis (15) Lactic acidosis: Plan Increase Lasix to 40 mg IV twice daily with close monitoring of urine output, fluid balance, renal function, and weight May consider to give albumin at the same time because of low albumin I will change metoprolol tartrate from 150 daily to 75 mg twice daily Continue losartan Discontinue Lovenox and start Eliquis 5 mg p.o. twice daily Continue Synthroid The patient was advised regarding the importance of both tobacco and alcohol cessation to improve her long-term prognosis. Regarding valvular heart disease we will continue to follow-up progression with periodic echocardiographic studies as outpatient
[2024-04-22] MEDS: ENSURE ORIGINAL 237 ML BOTTLE PO (21:08)
[2024-04-22] MEDS: APIXABAN 5 MG TABLET PO (21:08)
[2024-04-22] MEDS: HYDROCODONE/ACET 5-325 MG TABLET 1 TAB PO (21:23)
[2024-04-23] VITALS (15 sets, daily range): BP systolic 125–157; BP diastolic 79–113; PULSE 67–103; TEMP 36.2–36.8; O2SAT 91–97; BMI 31.8
[2024-04-23] MEDS: ENSURE ORIGINAL 237 ML BOTTLE PO ×2 (05:36→21:32)
[2024-04-23] MEDS: LEVOTHYROXINE SODIUM 125 MCG TABLET PO (05:36)
[2024-04-23 06:03] LABS: Basophils Absolute Auto 0.1 10^3/uL (0.0-0.1); Basophils Percent Auto 0.7 % (0.2-2.0); Eosinophils Absolute Auto 0.2 10^3/uL (0.0-0.7); Eosinophils Percent Auto 2.2 % (0.9-7.0); Hematocrit 24.6 % (36.0-48.0); Hemoglobin 7.9 g/dL (12.0-16.0); Immature Granulocytes Abs Auto 0.08 10^3/uL (0.00-0.03); Immature Granulocytes Pct Auto 0.9 % (0.0-0.5); Lymphocytes Absolute Auto 1.8 10^3/uL (1.2-3.8); Lymphocytes Percent Auto 19.3 % (20.5-60.0); Mean Corpuscular HGB Conc 32.1 g/dL (29.9-35.2); Mean Corpuscular Hemoglobin 32.2 pg (26.7-34.0); Mean Corpuscular Volume 100.4 fL (81.0-99.0); Mean Platelet Volume 9.1 fL (9.5-13.5); Monocytes Absolute Auto 1.1 10^3/uL (0.3-0.8); Monocytes Percent Auto 11.9 % (1.7-12.0); Neutrophils Absolute Auto 6.1 10^3/uL (1.4-6.5); Platelet Count 208 10^3/uL (150-450); Red Blood Count 2.45 10^6/uL (4.20-5.40); Red Cell Distribution Width 14.5 % (11.0-15.0); White Blood Count 9.4 10^3/uL (4.0-11.0)
[2024-04-23 06:23] LABS: Magnesium 1.5 mg/dL (1.8-2.4)
[2024-04-23 06:28] LABS: Alanine Aminotransferase 17 U/L (14-59); Albumin Globulin Ratio 0.5; Albumin Level 1.8 g/dL (3.4-5.0); Alkaline Phosphatase 179 U/L (46-116); Anion Gap 14.1; Aspartate Amino Transferase 47 U/L (15-37); BUN Creatinine Ratio 9.4; Bilirubin Total 0.4 mg/dL (0.2-1.0); Calcium 7.8 mg/dL (8.5-10.1); Carbon Dioxide 23.1 mmol/L (21.0-32.0); Chloride 104 mmol/L (98-107); Estimated GFR (African America 27 (>=60 mL/min/1.73m^2); Estimated GFR (Non-African Ame 22 (>=60 mL/min/1.73m^2); Glucose 108 mg/dL (74-106); Potassium 4.2 mmol/L (3.5-5.1); Sodium 137 mmol/L (136-145); Total Protein 5.8 g/dL (6.4-8.2)
[2024-04-23] MEDS: FUROSEMIDE 40 MG/4 ML VIAL IVP ×2 (08:38→21:33)
[2024-04-23] MEDS: LOSARTAN POTASSIUM 25 MG TABLET PO (08:39)
[2024-04-23] MEDS: METOPROLOL TARTRATE 50 MG TABLET 75 MG PO ×2 (08:39→21:33)
[2024-04-23] MEDS: OMEPRAZOLE 20 MG CAPSULE.DR PO (08:39)
[2024-04-23] MEDS: APIXABAN 5 MG TABLET PO ×2 (08:40→21:34)
[2024-04-23] MEDS: MAGNESIUM OXIDE 400 MG TABLET PO ×2 (08:40→21:34)
[2024-04-23] MEDS: THIAMINE MONONITRATE (VIT B1) 100 MG TABLET PO (08:40)
[2024-04-23] MEDS: PROSTAT 15 GM PROTEIN/100 CAL 30 ML LIQUID PACKET PO ×2 (08:40→21:32)
--- NOTE | 2024-04-23 09:23 | SWNOTE1 ---
SW received a call from [facility] and they are able to accept. They are asking when patient will be discharged. SW to call back after morning rounds.
--- NOTE | 2024-04-23 09:34 | P.PN_ITS ---
Progress Note: Subjective Subjective Interval history: Patient is sitting up in chair. She still notes pain in her right heel. Still with swelling bilateral legs, abdomen. She reports not much improvement. Still short of breath from all the fluid overload. Cardiology evaluated patient last night and increased Lasix to 40mg IV BID, decreased metoprolol and added Eliquis. I discussed with patient trying Dose of Albumin and following it with lasix to see if we can get better diuresis. Exam Narrative Exam Narrative: General: Patient is alert, and oriented to person, place and time with normal affect, she is short of breath with conversing and has a dry cough Skin: significant bilateral lower extremity edema +4 pitting that extends from the top of the feet all the way up to the abdomen. She has a sore on the bottom of the right heel with drainage. Head: atraumatic, acephalic Eyes: PERRLA, no nystagmus present, conjunctiva clear, no scleral icterus Ears: normal gross auditory acuity Heart: abnormal rate and rhythm, no murmurs/rubs/gallops Lungs: audible wheezes, and crackles and diminished breath sounds all lung márquez Abdomen: anasarca noted, no palpable masses or pain Musculoskeletal: see skin exam Neuro: CN II-X grossly intact Constitutional Vital Signs, click to edit/add: Last Vital Signs Temp 98.2 F 04/23/24 08:00 Pulse 83 04/23/24 08:00 Resp 16 04/23/24 08:00 BP 157/113 H 04/23/24 08:00 Pulse Ox 97 04/23/24 08:00 O2 Del Method Room Air 04/23/24 08:00 Progress Note: Objective Labs Labs: Short CBC 04/23/24 Range/Units 05:53 WBC 9.4 (4.0-11.0) 10^3/uL Hgb 7.9 L (12.0-16.0) g/dL Hct 24.6 L (36.0-48.0) % Plt Count 208 (150-450) 10^3/uL BMP 04/23/24 05:53 Sodium 137 Potassium 4.2 Chloride 104 Carbon Dioxide 23.1 BUN 21.0 H Creatinine 2.24 H Glucose 108 H Calcium 7.8 L Liver Function 04/23/24 Range/Units 05:53 Total Bilirubin 0.4 (0.2-1.0) mg/dL AST 47 H (15-37) U/L ALT 17 (14-59) U/L Alkaline Phosphatase 179 H (46-116) U/L Albumin 1.8 L (3.4-5.0) g/dL Progress Note: A&P Assessment and Plan (1) Acute on chronic heart failure: Assessment and Plan: [place] [address], please see attached ECHO results. She does have chronic kidney disease and history of alcoholism and feel that the edema could be hepatorenal syndrome and 3rd spacing. Continue diuresis with Lasix 40mg IV BID but give dose of Albumin today and follow with extra lasix 20mg iv x 1. Monitor strict I&O's, daily weights, fluid restriction of 1.5L and salt restriction. Telemetry. Monitor renal function closely with diuresis. Continue metoprolol, continue losartan. Add spironolactone. Qualifiers: Heart failure type: unspecified Qualified Code(s): I50.9 - Heart failure, unspecified (2) Hepatorenal syndrome: Assessment and Plan: given long history of alcoholism, diuresis has been slow and with increasing renal function. Will try diuresis with albumin/lasix combo, add spironolactone (3) Atrial fibrillation: Assessment and Plan: Continue rate control with metoprolol and continue eliquis Qualifiers: Atrial fibrillation type: longstanding persistent Qualified Code(s): I48.11 - Longstanding persistent atrial fibrillation (4) Valvular heart disease: Assessment and Plan: will continue eliquis (5) Pulmonary hypertension: Assessment and Plan: from underlying COPD, and pulmonary edema (6) Hypertension: Assessment and Plan: continue losartan, metoprolol Qualifiers: Hypertension type: primary hypertension Qualified Code(s): I10 - Essential (primary) hypertension (7) Alcohol abuse: Assessment and Plan: Appears patient has chronic alcoholic hepatitis with AST elevation and Alk Phos elevation. She had RUQ ultrasound and CT ab/pelvis a year ago with no liver pathology noted. (8) Tobacco abuse: Assessment and Plan: would benefit from cessation (9) Hypothyroidism: Assessment and Plan: continue levothyroxine to 125mcg daily Qualifiers: Hypothyroidism type: acquired Qualified Code(s): E03.9 - Hypothyroidism, unspecified (10) Kidney failure: Assessment and Plan: monitor renal function closely with diuresis Qualifiers: Chronic kidney disease stage: stage 4 (GFR 15-29) Renal failure ch ronicity: chronic Qualified Code(s): N18.4 - Chronic kidney disease, stage 4 (severe) (11) Hypomagnesemia: Assessment and Plan: replace IV and PO (12) Hypocalcemia: Assessment and Plan: due to malnutrition (13) Hypoalbuminemia due to protein-calorie malnutrition: Assessment and Plan: Nutrition consult add pro-stat and Ensure (14) GERD (gastroesophageal reflux disease): Assessment and Plan: continue PPI Qualifiers: Esophagitis presence: esophagitis presence not specified Qualified Code(s): K21.9 - Gastro-esophageal reflux disease without esophagitis Plan Patient is a full code continue Eliquis for DVT prophylaxis Patient will need 2-3 more days for appropriate diuresis, if patient does not show any improvement in the next 24 hours with addition of albumin, plan to transfer patient for higher level of care for Hepatology, Cardiology, nephrology care. Urinary Catheter Management Urinary Catheter Management Urethral: Cath placed during this visit: yes Urethral indwelling: Yes Reason for continuing: measure accurate output Insertion date: 04/22/24 Insertion time: 00:53
[2024-04-23] MEDS: ALBUMIN HUMAN 25 GM/100 ML PREMIX IV ×2 (10:14→11:21)
--- NOTE | 2024-04-23 12:10 | CM.NOTE ---
Rounds made with Dr. Kaiser, discussed with pt lab work and testing completed. Talked with pt regarding plan of care moving forward, starting Albumin and then following with Bumex (reason for medications). Pt states she is still struggling with ambulation d/t swelling and dyspnea. No discharge today.
[2024-04-23] MEDS: FUROSEMIDE 20 MG/2 ML VIAL IVP (12:14)
[2024-04-23] MEDS: MAGNESIUM SULFATE IN WATER 2 GM/50 ML PREMIX IV (12:14)
--- NOTE | 2024-04-23 12:17 | REH.PTDLY ---
Physical Therapy Daily Note PT Daily Note/Assess Start: 04/23/24 12:09 Freq: Status: Active Protocol: Document 04/23/24 12:09 ZULY (Rec: 04/23/24 12:17 [id number] Physical Therapy Daily Note/Assessment Time In 11:18 Time Out 11:28 Subjective Pt up in chair, hesitant to perform therapy. Reports ankles really hurt, but had pain medicine this morning. Doesn't feel like it did much. Therapeutic Exercise 8 Minutes (minutes) Therapeutic Exercise 1 Units Therapeutic Exercise Instructed in seated exs in chair 8-10x ea with cues to Treatment motivate pt. Pt becomes tearful with exs and reports that her ankles just hurt and legs feel heavy. Total Therapy 8 Minutes Total Physical 1 Therapy Units Daily Note Summary Seated exs only performed today due to pt having increased pain in legs. Pt declines ambulating at this time due to higher pain levels. Pt does not want to go SNF, would rather have HH.
--- NOTE | 2024-04-23 16:23 | SWNOTE1 ---
SW stopped in to talk with pt about discharge planning. Pt's goal is to return home with HH. AYUSH advised pt that she did set up [facility]. Pt in agreement with this and plans to return home. She stated she walked further today with therapy, but still pain in her legs.
[2024-04-24] VITALS (18 sets, daily range): BP systolic 143–169; BP diastolic 82–91; PULSE 66–99; TEMP 36.5–36.8; O2SAT 91–98
[2024-04-24] MEDS: LEVOTHYROXINE SODIUM 125 MCG TABLET PO (05:27)
[2024-04-24 05:45] LABS: Basophils Absolute Auto 0.1 10^3/uL (0.0-0.1); Basophils Percent Auto 0.9 % (0.2-2.0); Eosinophils Absolute Auto 0.2 10^3/uL (0.0-0.7); Eosinophils Percent Auto 3.1 % (0.9-7.0); Hematocrit 25.1 % (36.0-48.0); Hemoglobin 7.8 g/dL (12.0-16.0); Immature Granulocytes Abs Auto 0.07 10^3/uL (0.00-0.03); Lymphocytes Absolute Auto 1.3 10^3/uL (1.2-3.8); Lymphocytes Percent Auto 19.1 % (20.5-60.0); Mean Corpuscular HGB Conc 31.1 g/dL (29.9-35.2); Mean Corpuscular Volume 102.9 fL (81.0-99.0); Monocytes Absolute Auto 0.8 10^3/uL (0.3-0.8); Monocytes Percent Auto 11.3 % (1.7-12.0); Neutrophils Absolute Auto 4.4 10^3/uL (1.4-6.5); Neutrophils Percent Auto 64.6 % (43.0-75.0); Platelet Count 216 10^3/uL (150-450); Red Blood Count 2.44 10^6/uL (4.20-5.40); Red Cell Distribution Width 14.6 % (11.0-15.0); White Blood Count 6.8 10^3/uL (4.0-11.0)
[2024-04-24 06:00] LABS: Magnesium 1.8 mg/dL (1.8-2.4)
[2024-04-24 06:09] LABS: Alanine Aminotransferase 22 U/L (14-59); Albumin Globulin Ratio 0.6; Albumin Level 2.5 g/dL (3.4-5.0); Alkaline Phosphatase 172 U/L (46-116); Anion Gap 13.3; Aspartate Amino Transferase 54 U/L (15-37); BUN Creatinine Ratio 10.9; Bilirubin Total 0.4 mg/dL (0.2-1.0); Calcium 8.4 mg/dL (8.5-10.1); Carbon Dioxide 24.8 mmol/L (21.0-32.0); Chloride 104 mmol/L (98-107); Estimated GFR (African America 24 (>=60 mL/min/1.73m^2); Estimated GFR (Non-African Ame 20 (>=60 mL/min/1.73m^2); Globulin 3.9 g/dL; Glucose 110 mg/dL (74-106); Potassium 4.1 mmol/L (3.5-5.1); Sodium 138 mmol/L (136-145); Total Protein 6.4 g/dL (6.4-8.2)
--- NOTE | 2024-04-24 09:10 | PM.PN ---
Progress Note: Subjective Subjective Interval history: Patient is sitting up in bed. She still notes pain in her right heel. Still with swelling bilateral legs, abdomen but some improvement today. Still short of breath from all the fluid build up. Cardiology evaluated patient 04/22/24 and increased Lasix to 40mg IV BID, decreased metoprolol and added Eliquis. I added Albumin and followed it with lasix yesterday and this seemed to help with more diuresis. Creatinine is 2.48 today. Will try additional Albumin today and try Bumex 2mg x 1. Will stop lasix today and try bumex. Will also add metolazone daily. She has had about 1800cc output and down 5 pounds but she has alot more to lose. Exam Narrative Exam Narrative: General: Patient is alert, and oriented to person, place and time with normal affect and with dry cough Skin: significant bilateral lower extremity edema +3 pitting that extends from the top of the feet all the way up to the lower abdomen. She has a sore on the bottom of the right heel with drainage. Head: atraumatic, acephalic Eyes: PERRLA, no nystagmus present, conjunctiva clear, no scleral icterus Ears: normal gross auditory acuity Heart: abnormal rate and rhythm, no murmurs/rubs/gallops Lungs: audible wheezes, and crackles and diminished breath sounds all lung márquez Abdomen: anasarca noted, no palpable masses or pain Musculoskeletal: see skin exam Neuro: CN II-X grossly intact Constitutional Vital Signs, click to edit/add: Last Vital Signs Temp 98.1 F 04/24/24 07:20 Pulse 82 04/24/24 08:00 Resp 18 04/24/24 07:20 BP 144/88 H 04/24/24 07:20 Pulse Ox 94 L 04/24/24 07:20 O2 Del Method Room Air 04/24/24 07:20 Progress Note: Objective Labs Labs: Short CBC 04/24/24 Range/Units 05:30 WBC 6.8 (4.0-11.0) 10^3/uL Hgb 7.8 L (12.0-16.0) g/dL Hct 25.1 L (36.0-48.0) % Plt Count 216 (150-450) 10^3/uL BMP 04/24/24 05:30 Sodium 138 Potassium 4.1 Chloride 104 Carbon Dioxide 24.8 BUN 27.0 H Creatinine 2.48 H Glucose 110 H Calcium 8.4 L Liver Function 04/24/24 Range/Units 05:30 Total Bilirubin 0.4 (0.2-1.0) mg/dL AST 54 H (15-37) U/L ALT 22 (14-59) U/L Alkaline Phosphatase 172 H (46-116) U/L Albumin 2.5 L (3.4-5.0) g/dL Progress Note: A&P Assessment and Plan (1) Hepatorenal syndrome: Assessment and Plan: given long history of alcoholism, diuresis has been slow and with increasing renal function. Will try diuresis with albumin/bumex combo today with addition of Metolazone (2) Acute on chronic heart failure: Assessment and Plan: [place] [address], please see attached ECHO results. She does have chronic kidney disease and history of alcoholism and feel that the edema could be hepatorenal syndrome and 3rd spacing. Stop Lasix 40mg IV BID, given another dose of Albumin today and follow with Bumex 2mg iv x 1. Monitor strict I&O's, daily weights, fluid restriction of 1.5L and salt restriction. Telemetry. Monitor renal function closely with diuresis. Continue metoprolol, continue losartan. Add Metolazone 2.5mg daily. Qualifiers: Heart failure type: unspecified Qualified Code(s): I50.9 - Heart failure, unspecified (3) Kidney failure: Assessment and Plan: monitor renal function closely with diuresis Qualifiers: Chronic kidney disease stage: stage 4 (GFR 15-29) Renal failure chronicity: chronic Qualified Code(s): N18.4 - Chronic kidney disease, stage 4 (severe) (4) Atrial fibrillation: Assessment and Plan: Continue rate control with metoprolol and continue eliquis Qualifiers: Atrial fibrillation type: longstanding persistent Qualified Code(s): I48.11 - Longstanding persistent atrial fibrillation (5) Valvular heart disease: Assessment and Plan: will continue eliquis (6) Pulmonary hypertension: Assessment and Plan: from underlying COPD, and pulmonary edema (7) Hypertension: Assessment and Plan: continue losartan, metoprolol Qualifiers: Hypertension type: primary hypertension Qualified Code(s): I10 - Essential (primary) hypertension (8) Alcohol abuse: Assessment and Plan: Appears patient has chronic alcoholic hepatitis with AST elevation and Alk Phos elevation. She had RUQ ultrasound and CT ab/pelvis a year ago with no liver pathology noted. (9) Tobacco abuse: Assessment and Plan: would benefit from cessation; add OPEP and duonebs prn (10) Hypothyroidism: Assessment and Plan: continue levothyroxine to 125mcg daily Qualifiers: Hypothyroidism type: acquired Qualified Code(s): E03.9 - Hypothyroidism, unspecified (11) Hypomagnesemia: Assessment and Plan: replace IV and PO (12) Hypocalcemia: Assessment and Plan: due to malnutrition (13) Hypoalbuminemia due to protein-calorie malnutrition: Assessment and Plan: continue prostat and ENSURE (14) GERD (gastroesophageal reflux disease): Assessment and Plan: continue protonix Qualifiers: Esophagitis presence: esophagitis presence not specified Qualified Code(s): K21.9 - Gastro-esophageal reflux disease without esophagitis (15) Ulcer of right heel: Assessment and Plan: continue daily dressing changes, apply pressure boots while in bed Qualifiers: Non-pressure ulcer stage: limited to breakdown of skin Qualified Code(s): L97.411 - Non-pressure chronic ulcer of right heel and midfoot limited to breakdown of skin Plan Patient is a full code continue Eliquis for DVT prophylaxis Patient will need 2-3 more days for appropriate diuresis, if patient does not show any improvement with addition of albumin, bumex and metolazone, plan to transfer patient for higher level of care for Hepatology, Cardiology, nephrology care. Urinary Catheter Management Urinary Catheter Management Urethral: Cath placed during this visit: yes Urethral indwelling: Yes Reason for continuing: measure accurate output Insertion date: 04/22/24 Insertion time: 00:53
[2024-04-24] MEDS: METOPROLOL TARTRATE 50 MG TABLET 75 MG PO ×2 (09:56→21:04)
[2024-04-24] MEDS: MAGNESIUM OXIDE 400 MG TABLET PO ×2 (09:56→21:04)
[2024-04-24] MEDS: PROSTAT 15 GM PROTEIN/100 CAL 30 ML LIQUID PACKET PO ×2 (09:56→21:04)
[2024-04-24] MEDS: FUROSEMIDE 40 MG/4 ML VIAL IVP (09:57)
[2024-04-24] MEDS: APIXABAN 5 MG TABLET PO ×2 (09:57→21:05)
[2024-04-24] MEDS: OMEPRAZOLE 20 MG CAPSULE.DR PO (09:57)
[2024-04-24] MEDS: THIAMINE MONONITRATE (VIT B1) 100 MG TABLET PO (09:57)
[2024-04-24] MEDS: LOSARTAN POTASSIUM 25 MG TABLET PO (09:57)
[2024-04-24] MEDS: ALBUMIN HUMAN 25 GM/100 ML PREMIX IV ×2 (09:58→11:09)
[2024-04-24] MEDS: HYDROCODONE/ACET 5-325 MG TABLET 1 TAB PO ×2 (11:09→21:04)
--- NOTE | 2024-04-24 11:09 | XR_ITS ---
The [address] [address] Patient Name: ORESTES ALVARES MRN: [id number] date: 1965 Sex: F Assigned Patient Location: [place] Current Patient Location: [place] Accession/Order Number: [id number] Exam Date: 04/24/2024 11:20 Report Date: 04/24/2024 12:09 At the request of: JYOTI AARON Procedure: XR chest 1V EXAM: XR chest 1V HISTORY: shortness of breath COMPARISON: 04/21/2024 TECHNIQUE: AP portable FINDINGS: LUNGS: The right lung is clear. Mild left basilar infiltrate, improved with obscuration of the lateral left hemidiaphragm VASCULATURE: No increased pulmonary vasculature. PLEURA: No pneumothorax, effusion, or pleural thickening. CARDIAC: Mild cardiomegaly. MEDIASTINUM: No visible mass or adenopathy. BONES: No fracture or visible bone lesion. OTHER: Negative. XR/XR chest 1V IMPRESSION: Mild left basilar infiltrate, improved from the prior exam Electronically authenticated by: CODY BAUTISTA Date: 04/24/2024 12:09
--- NOTE | 2024-04-24 11:53 | PT.DAILY ---
Physical Therapy Daily Note PT Daily Note/Assess Start: 04/23/24 12:09 Freq: Status: Active Protocol: Document 04/24/24 11:46 [email or web address] (Rec: 04/24/24 11:53 KAYODE [id number]) Physical Therapy Daily Note/Assessment Time In/Time Out Time In 10:45 Time Out 11:00 Pain In Pain N/A Pain Out Pain N/A Subjective Subjective Pt supine upon arrival. Needs motivation to participate with PT this morning. Reports she does not want to attempt to stand or walk because her feet are seeping and were recently wrapped. Pt did agree to sit EOB for session. Therapeutic Exercise Time Therapeutic Exercise 6 Minutes (minutes) Therapeutic Exercise 1 Units Therapeutic Exercise Treatment Therapeutic Exercise Sits EOB with 1 UE support to maintain seated balance. Treatment Instructed to perform bilat LE strengthening ex while sitting EOB. Increased bilat foot pain while sitting EOB. Pt cont to decline standing at this time. Therapeutic Activity Time Therapeutic Activity 5 Minutes (minutes) Therapeutic Activity 0 Units Therapeutic Activity Treatment Bed Mobility Ability Moderate Assist Therapeutic Activity Supine>sit with ModA to advance upper body to sit EOB. Comments Pt retaining fluid and her trunk area with tender/hard to the touch. Pt sits EOB with 1 UE support to maintain sitting balance while performing LE strengthening ex. Pt reports increased pain in bilat feet with sitting but reports her back feels better with sitting up. Pt declines sit>stand or to get into BS chair. Pt is educated on importance of moving and changing position while she is retaining fluid but cont to refuse. Sit> supine SBA with total assist of 2 to scoot pt up in bed . Pillows placed under bilat LEs. Call light within reach and needs met. Total Physical Therapy Time Total Therapy 11 Minutes Total Physical 1 Therapy Units Summary Daily Note Summary Session is limited due to foot pain and seeping. Pt requires ModA for supine>sit transfer today. Would benefit from SNF if agreeable.
[2024-04-24] MEDS: BUMETANIDE 1 MG/4 ML VIAL 2 MG IVP (12:07)
[2024-04-24] MEDS: METOLAZONE 2.5 MG TABLET PO (12:07)
--- NOTE | 2024-04-24 12:21 | CM.NOTE ---
Rounds made with Dr. Kaiser, discussed with pt about continuing IV albumin and Bumex for diuresing. Continue with treatment, no discharge.
[2024-04-24] MEDS: ENSURE ORIGINAL 237 ML BOTTLE PO ×2 (14:38→21:05)
[2024-04-24] MEDS: IPRATROPIUM/ALBUTEROL SULFATE 3 ML AMPUL.NEB IH (15:23)
--- NOTE | 2024-04-24 15:36 | SWNOTE1 ---
AYUSH called [facility] and let them know there is no discharge today. AYUSH sent updated PT/OT and progress notes to [facility].
[2024-04-25] VITALS (21 sets, daily range): BP systolic 144–164; BP diastolic 74–99; PULSE 72–188; TEMP 36.3–36.9; O2SAT 91–97
[2024-04-25] MEDS: ENSURE ORIGINAL 237 ML BOTTLE PO ×2 (05:22→14:59)
[2024-04-25] MEDS: LEVOTHYROXINE SODIUM 125 MCG TABLET PO (05:22)
[2024-04-25 06:10] LABS: Basophils Absolute Auto 0.1 10^3/uL (0.0-0.1); Basophils Percent Auto 0.6 % (0.2-2.0); Eosinophils Absolute Auto 0.2 10^3/uL (0.0-0.7); Eosinophils Percent Auto 2.7 % (0.9-7.0); Hemoglobin 7.7 g/dL (12.0-16.0); Immature Granulocytes Abs Auto 0.09 10^3/uL (0.00-0.03); Immature Granulocytes Pct Auto 1.1 % (0.0-0.5); Lymphocytes Absolute Auto 1.3 10^3/uL (1.2-3.8); Lymphocytes Percent Auto 15.2 % (20.5-60.0); Mean Corpuscular HGB Conc 32.2 g/dL (29.9-35.2); Mean Corpuscular Hemoglobin 32.9 pg (26.7-34.0); Mean Corpuscular Volume 102.1 fL (81.0-99.0); Mean Platelet Volume 9.2 fL (9.5-13.5); Monocytes Percent Auto 11.8 % (1.7-12.0); Neutrophils Absolute Auto 5.7 10^3/uL (1.4-6.5); Neutrophils Percent Auto 68.6 % (43.0-75.0); Platelet Count 214 10^3/uL (150-450); Red Blood Count 2.34 10^6/uL (4.20-5.40); Red Cell Distribution Width 14.6 % (11.0-15.0); White Blood Count 8.3 10^3/uL (4.0-11.0)
[2024-04-25 06:24] LABS: Alanine Aminotransferase 18 U/L (14-59); Albumin Globulin Ratio 0.8; Albumin Level 2.8 g/dL (3.4-5.0); Alkaline Phosphatase 155 U/L (46-116); Anion Gap 10.6; Aspartate Amino Transferase 45 U/L (15-37); BUN Creatinine Ratio 14.6; Bilirubin Total 0.5 mg/dL (0.2-1.0); Calcium 8.5 mg/dL (8.5-10.1); Carbon Dioxide 27.7 mmol/L (21.0-32.0); Chloride 102 mmol/L (98-107); Estimated GFR (African America 24 (>=60 mL/min/1.73m^2); Estimated GFR (Non-African Ame 20 (>=60 mL/min/1.73m^2); Globulin 3.6 g/dL; Glucose 105 mg/dL (74-106); Hematocrit 23.9 % (36.0-48.0); Potassium 4.3 mmol/L (3.5-5.1); Sodium 136 mmol/L (136-145); Total Protein 6.4 g/dL (6.4-8.2)
[2024-04-25 06:28] LABS: Magnesium 1.5 mg/dL (1.8-2.4)
--- NOTE | 2024-04-25 08:42 | PM.PN ---
Progress Note: Subjective Subjective Interval history: Patient is sitting up in bed. Still with swelling bilateral legs, abdomen but some improvement today and she is able to bed her legs not just her ankles. Still short of breath from all the fluid build up. The addition Albumin and followed it with lasix and bumex seemed to help with more diuresis. Creatinine is 2.47 today. Start on Bumex 2mg IV BID. continue metolazone daily. She has had about 2400cc output in the last 24 hours. Exam Narrative Exam Narrative: General: Patient is alert, and oriented to person, place and time with normal affect and with dry cough Skin: significant bilateral lower extremity edema +3 pitting that extends from the top of the feet all the way up to the lower abdomen. She has a sore on the bottom of the right heel with drainage that has been dressed; dressing is c/d/i Head: atraumatic, acephalic Eyes: PERRLA, no nystagmus present, conjunctiva clear, no scleral icterus Ears: normal gross auditory acuity Heart: abnormal rate and rhythm, no murmurs/rubs/gallops Lungs: audible wheezes, and crackles and diminished breath sounds all lung márquez Abdomen: anasarca noted but improved , no palpable masses or pain Musculoskeletal: see skin exam Neuro: CN II-X grossly intact Constitutional Vital Signs, click to edit/add: Last Vital Signs Temp 97.6 F 04/25/24 04:00 Pulse 88 04/25/24 08:00 Resp 18 04/25/24 04:00 BP 154/74 H 04/25/24 04:00 Pulse Ox 92 L 04/25/24 05:40 O2 Del Method Room Air 04/25/24 05:40 Progress Note: Objective Labs Labs: Short CBC 04/25/24 Range/Units 05:48 WBC 8.3 (4.0-11.0) 10^3/uL Hgb 7.7 L (12.0-16.0) g/dL Hct 23.9 L* (36.0-48.0) % Plt Count 214 (150-450) 10^3/uL BMP 04/25/24 05:48 Sodium 136 Potassium 4.3 Chloride 102 Carbon Dioxide 27.7 BUN 36.0 H Creatinine 2.47 H Glucose 105 Calcium 8.5 Liver Function 04/25/24 Range/Units 05:48 Total Bilirubin 0.5 (0.2-1.0) mg/dL AST 45 H (15-37) U/L ALT 18 (14-59) U/L Alkaline Phosphatase 155 H (46-116) U/L Albumin 2.8 L (3.4-5.0) g/dL Progress Note: A&P Assessment and Plan (1) Hepatorenal syndrome: Assessment and Plan: continue Bumex today with addition of Metolazone (2) Acute on chronic heart failure: Assessment and Plan: Monitor strict I&O's, daily weights, fluid restriction of 1.5L and salt restriction. Telemetry. Monitor renal function closely with diuresis. Continue metoprolol, continue losartan. Metolazone 2.5mg daily nelson with bumex 2g IV BID Qualifiers: Heart failure type: unspecified Qualified Code(s): I50.9 - Heart failure, unspecified (3) Kidney failure: Assessment and Plan: monitor renal function closely with diuresis Qualifiers: Chronic kidney disease stage: stage 4 (GFR 15-29) Renal failure chronicity: chronic Qualified Code(s): N18.4 - Chronic kidney disease, stage 4 (severe) (4) Atrial fibrillation: Assessment and Plan: Continue rate control with metoprolol and continue eliquis Qualifiers: Atrial fibrillation type: longstanding persistent Qualified Code(s): I48.11 - Longstanding persistent atrial fibrillation (5) Valvular heart disease: Assessment and Plan: will continue eliquis (6) Pulmonary hypertension: Assessment and Plan: from underlying COPD, and pulmonary edema, treat problem 1,2 (7) Hypertension: Assessment and Plan: continue losartan, metoprolol Qualifiers: Hypertension type: primary hypertension Qualified Code(s): I10 - Essential (primary) hypertension (8) Alcohol abuse: Assessment and Plan: Appears patient has chronic alcoholic hepatitis with AST elevation and Alk Phos elevation. She had RUQ ultrasound and CT ab/pelvis a year ago with no liver pathology noted. (9) Tobacco abuse: Assessment and Plan: would benefit from cessation; OPEP and duonebs prn (10) Hypothyroidism: Assessment and Plan: continue levothyroxine to 125mcg daily Qualifiers: Hypothyroidism type: acquired Qualified Code(s): E03.9 - Hypothyroidism, unspecified (11) Hypomagnesemia: Assessment and Plan: monitor, replace IV and PO (12) Hypocalcemia: Assessment and Plan: due to malnutrition (13) Hypoalbuminemia due to protein-calorie malnutrition: Assessment and Plan: continue prostat and ENSURE (14) GERD (gastroesophageal reflux disease): Assessment and Plan: continue protonix Qualifiers: Esophagitis presence: esophagitis presence not specified Qualified Code(s): K21.9 - Gastro-esophageal reflux disease without esophagitis (15) Ulcer of right heel: Assessment and Plan: continue daily dressing changes, apply pressure boots while in bed Qualifiers: Non-pressure ulcer stage: limited to breakdown of skin Qualified Code(s): L97.411 - Non-pressure chronic ulcer of right heel and midfoot limited to breakdown of skin Plan Patient is a full code continue Eliquis for DVT prophylaxis patient is improving slower than anticipated but improving daily. continue with diuresis Urinary Catheter Management Urinary Catheter Management Urethral: Cath placed during this visit: yes Urethral indwelling: Yes Reason for continuing: measure accurate output Insertion date: 04/22/24 Insertion time: 00:53
[2024-04-25] MEDS: METOPROLOL TARTRATE 50 MG TABLET 75 MG PO ×2 (08:57→20:28)
[2024-04-25] MEDS: HYDROCODONE/ACET 5-325 MG TABLET 1 TAB PO (08:57)
[2024-04-25] MEDS: PROSTAT 15 GM PROTEIN/100 CAL 30 ML LIQUID PACKET PO (08:57)
[2024-04-25] MEDS: MAGNESIUM OXIDE 400 MG TABLET PO ×2 (08:57→20:28)
[2024-04-25] MEDS: APIXABAN 5 MG TABLET PO ×2 (08:57→20:28)
[2024-04-25] MEDS: OMEPRAZOLE 20 MG CAPSULE.DR PO (08:57)
[2024-04-25] MEDS: LOSARTAN POTASSIUM 25 MG TABLET PO (08:57)
[2024-04-25] MEDS: METOLAZONE 2.5 MG TABLET PO (08:57)
[2024-04-25] MEDS: THIAMINE MONONITRATE (VIT B1) 100 MG TABLET PO (08:57)
[2024-04-25 09:22] LABS: NT Pro B Type Natriuretic Pept >35000.0 pg/mL (<=900.0)
--- NOTE | 2024-04-25 11:57 | CM.NOTE ---
Rounds made with Dr. Kaiser. Juanita still with complaints of being tired. Labs reviewed by Dr. Kaiser with Juanita. Juanita verbalizes understanding.
--- NOTE | 2024-04-25 12:19 | REH.PTDLY ---
Physical Therapy Daily Note PT Daily Note/Assess Start: 04/23/24 12:09 Freq: Status: Active Protocol: Document 04/25/24 12:06 ZULY (Rec: 04/25/24 12:19 [id number] Physical Therapy Daily Note/Assessment Time In 11:30 Time Out 11:55 Subjective Pt asleep upon arrival and does not want to perform therapy initially. OT in room as well, pt states said she could sleep. in hallway and verified and she states no she would like her to get up and move. Pt finally agreeable to get up Therapeutic Exercise 2 Minutes (minutes) Therapeutic Exercise 0 Units Therapeutic Exercise Cues for pt to perform seated exs in chair, pt states i Treatment do these all the time and marches legs 5-6x times and kicks into LAQ and then states she is done. Therapeutic Activity 13 Minutes (minutes) Therapeutic Activity 1 Units Therapeutic Activity Instructed in supine to sit transfers with Min A needed Comments . Sit to stand transfers CGA. Gait training with RW 25 feet with pt being impulsive with RW and pushing too far out in front of her, cues to correct. Cues as well for pt to stand upright as she wants to rest her forearms on RW. CGA for safety. Cues for toilet transfers to use grab bar. Min A with transfers off of toilet. Gait training 20 feet to chair with improved mobility with RW, pt not being as impulsive. Cues to reach back for chair. Total Therapy 15 Minutes Total Physical 1 Therapy Units Daily Note Summary Pt did ambulate today which is increased activity since she has been here. Pt requires CGA-Min A for safety. Pt continues to say she is going home with HH. This GLOBAL COMPENSATION MANAGER would recommend SNF stay at this time unless safety awareness improves
[2024-04-25] MEDS: BUMETANIDE 1 MG/4 ML VIAL 2 MG IVP (12:37)
--- NOTE | 2024-04-25 14:28 | SWNOTE1 ---
SW stopped back in to speak with pt about her discharge plans. SW asked how it felt to walk today, she stated ouchy. SW asked pt if her plan was still to go home with HH. She stated that is her goal, yes. She stated once the fluid comes off it will be better. She stated she has only been here since Monday. SW did express to pt that therapy is still recommending SNF and for her safety it would be beneficial to go to rehab for a short time. SW let her know that she is a precert to go to facility and this could take a few days. SW let her know it would be beneficial for her to come up with a plan B in case she can't go home. Pt then asked why she could not go home. SW stated it is her choice, but for safety reasons she would benefit from facility for a short time. Pt did ask SW where this would be. SW let her know that not many facilities take her insurance, but SW can check. Pt voiced IF she did go she wants to be around this area. SW to check [place], [place], and then [facility] and [place]. Pt lives in [place]. SW then asked pt if she was even agreeable to go somewhere. Pt then stated she plans on going home with home health. SW asked if SW can set up this plan B of going to a facility? Pt stated yes, but she plans on going home and doing therapy at home. SW let her know the difference between SNF and HH. Pt voiced the days that therapy does not come to the home, she will exercise on her own. AYUSH again asked if AYUSH can set up a plan B, she stated that SW try to set up plan B. AYUSH reached out to [facility] and [facility] [place], waiting to hear back.
--- NOTE | 2024-04-25 16:01 | SWNOTE1 ---
AYUSH heard back from demarco at [facility] and she is waiting for her corporate to get back to her. AYUSH called and left a voicemail for Anitha and Vero at [facility] as they have not returned SW email.
--- NOTE | 2024-04-25 16:23 | SWNOTE1 ---
AYUSH heard back from Anitha at [facility] and they do take pt's insurance and will review. Referral sent to [facility]. Referral included face sheet, ED note, H&P, provider notes, case management report, wound consult, nursing notes, diagnostic imaging, med list, and PT/OT notes.
[2024-04-25] MEDS: IPRATROPIUM/ALBUTEROL SULFATE 3 ML AMPUL.NEB IH (21:13)
[2024-04-26] VITALS (20 sets, daily range): BP systolic 150–165; BP diastolic 78–93; PULSE 65–98; TEMP 36.4–36.8; O2SAT 93–98
[2024-04-26] MEDS: BUMETANIDE 1 MG/4 ML VIAL 2 MG IVP ×3 (00:39→23:35)
[2024-04-26 06:14] LABS: Basophils Absolute Auto 0.1 10^3/uL (0.0-0.1); Basophils Percent Auto 0.7 % (0.2-2.0); Eosinophils Absolute Auto 0.3 10^3/uL (0.0-0.7); Eosinophils Percent Auto 3.7 % (0.9-7.0); Hematocrit 25.2 % (36.0-48.0); Immature Granulocytes Pct Auto 1.3 % (0.0-0.5); Lymphocytes Absolute Auto 1.4 10^3/uL (1.2-3.8); Lymphocytes Percent Auto 18.4 % (20.5-60.0); Mean Corpuscular HGB Conc 31.7 g/dL (29.9-35.2); Mean Corpuscular Hemoglobin 32.5 pg (26.7-34.0); Mean Corpuscular Volume 102.4 fL (81.0-99.0); Mean Platelet Volume 9.3 fL (9.5-13.5); Monocytes Absolute Auto 0.9 10^3/uL (0.3-0.8); Monocytes Percent Auto 12.5 % (1.7-12.0); Neutrophils Absolute Auto 4.8 10^3/uL (1.4-6.5); Neutrophils Percent Auto 63.4 % (43.0-75.0); Platelet Count 251 10^3/uL (150-450); Red Blood Count 2.46 10^6/uL (4.20-5.40); Red Cell Distribution Width 14.7 % (11.0-15.0); White Blood Count 7.6 10^3/uL (4.0-11.0)
[2024-04-26] MEDS: ENSURE ORIGINAL 237 ML BOTTLE PO ×2 (06:21→13:50)
[2024-04-26] MEDS: LEVOTHYROXINE SODIUM 125 MCG TABLET PO (06:21)
[2024-04-26 06:30] LABS: Magnesium 1.6 mg/dL (1.8-2.4)
[2024-04-26 06:34] LABS: Alanine Aminotransferase 18 U/L (14-59); Albumin Globulin Ratio 0.8; Albumin Level 2.9 g/dL (3.4-5.0); Alkaline Phosphatase 160 U/L (46-116); Anion Gap 10.2; Aspartate Amino Transferase 39 U/L (15-37); BUN Creatinine Ratio 17.5; Bilirubin Total 0.4 mg/dL (0.2-1.0); Calcium 9.1 mg/dL (8.5-10.1); Carbon Dioxide 30.9 mmol/L (21.0-32.0); Chloride 102 mmol/L (98-107); Estimated GFR (African America 24 (>=60 mL/min/1.73m^2); Estimated GFR (Non-African Ame 19 (>=60 mL/min/1.73m^2); Globulin 3.7 g/dL; Glucose 110 mg/dL (74-106); Potassium 4.1 mmol/L (3.5-5.1); Sodium 139 mmol/L (136-145); Total Protein 6.6 g/dL (6.4-8.2)
[2024-04-26] MEDS: IPRATROPIUM/ALBUTEROL SULFATE 3 ML AMPUL.NEB IH ×2 (07:46→19:50)
[2024-04-26] MEDS: PROSTAT 15 GM PROTEIN/100 CAL 30 ML LIQUID PACKET PO ×2 (08:43→22:34)
[2024-04-26] MEDS: METOPROLOL TARTRATE 50 MG TABLET 75 MG PO ×2 (08:43→22:35)
--- NOTE | 2024-04-26 08:43 | SWNOTE1 ---
SW had email from nurse from last night. She spoke to pt's sig. other on the phone. He voiced pt lays in her bed all day home and she drinks as well. He has concerns about returning home and just having home health. SW to speak with pt and sig. other today. A referral for SNF for plan B has been sent to [facility]. [facility] does not take that insurance.
[2024-04-26] MEDS: METOLAZONE 2.5 MG TABLET PO (08:44)
[2024-04-26] MEDS: HYDROCODONE/ACET 5-325 MG TABLET 1 TAB PO (08:44)
[2024-04-26] MEDS: LOSARTAN POTASSIUM 25 MG TABLET PO (08:44)
[2024-04-26] MEDS: THIAMINE MONONITRATE (VIT B1) 100 MG TABLET PO (08:44)
[2024-04-26] MEDS: APIXABAN 5 MG TABLET PO ×2 (08:44→22:34)
[2024-04-26] MEDS: MAGNESIUM OXIDE 400 MG TABLET PO ×2 (08:44→22:34)
[2024-04-26] MEDS: OMEPRAZOLE 20 MG CAPSULE.DR PO (08:44)
--- NOTE | 2024-04-26 09:26 | SWNOTE1 ---
AYUSH spoke to pt in regards to dc planning. AYUSH advised pt that her sig. other had spoke with nurse last night and he has concerns about her coming home with home health. She then stated she could tell him to leave her house and he needs to come up here and talk to her in person. SW advised her that we can call him together. She stated he needs to come here and talk to her. AYUSH asked pt what she is thinking. She stated she does not want to be placed in a home and be stuck there forever and Medicaid take her home. SW did let her know that it would be short term rehab and once she is stronger she will go home. Pt then asked again if home health therapy was set up. SW let her know it is [facility] that is set for when she returns home. She stated she feels like everyone is just trying to get rid of her. AYUSH advised pt that it is her choice for discharge and SW just lets her know what is recommended. SW also let her know that SW has to make discharge plans for pt's when they are first admitted due to various reasons. She did voice understanding. SW did let her know that referral has been sent to [facility]. AYUSH asked pt if she is agreeable to go skilled. She stated again that her goal is home health and doing exercises at home. At this point SW to come back in after doctor rounds.
--- NOTE | 2024-04-26 10:44 | PT.DAILY ---
Physical Therapy Daily Note PT Daily Note/Assess Start: 04/23/24 12:09 Freq: Status: Active Protocol: Document 04/26/24 10:38 KAYODE (Rec: 04/26/24 10:44 KAYODE [id number]) Physical Therapy Daily Note/Assessment Time In/Time Out Time In 09:35 Time Out 09:55 Pain In Pain N/A Pain Out Pain N/A Subjective Subjective Pt supine upon arrival. Agrees to get into BS chair for breakfast but would like washed up first - her gown and sheets have some blood on them. Pt agrees to allow WATER AND FIRE TECHNICIAN to assist with this. Therapeutic Exercise Time Therapeutic Exercise 3 Minutes (minutes) Therapeutic Exercise 0 Units Therapeutic Exercise Treatment Therapeutic Exercise Seated ex complete in BS chair 10x to maintain mobility Treatment - AP, LAQ, marches, add squeezes and abd step outs. Therapeutic Activity Time Therapeutic Activity 12 Minutes (minutes) Therapeutic Activity 1 Units Therapeutic Activity Treatment Bed Mobility Ability Minimum Assist Chair Transfer Contact Guard Assist Ability Therapeutic Activity Supine>sit EOB Giulia to advance upper body. Pt sits EOB Comments unsupported while she washes her upper body with set up needed. Total assist to wash her back and apply lotion . Pt requires assistance to doff old and sriram new gown. Pt sit>stand to RW while requiring assistance for pericare. Pt wishes not to put a brief on as their too itchy. Pt has catheter in. Pt amb 20' around bed CGA to BS chair with chair alarm set and needs met. Nursing notified pt is cleaned up and changed. Seated ex complete while sitting in BS chair,. Total Physical Therapy Time Total Therapy 15 Minutes Total Physical 1 Therapy Units Summary Daily Note Summary Improving cooperation. Gait more tolerable today - less foot pain. Min fatigued upon completion. Steady with gait using RW, CGA/
--- NOTE | 2024-04-26 10:50 | SWNOTE1 ---
[facility] as she was there in the past and it did not go well.
--- NOTE | 2024-04-26 11:00 | CM.NOTE ---
Rounds made with Dr. Bess, no discharge today. Pt continues with edema, will continue Bumex today. Pt continues to voice that she refuses skilled therapy at discharge, agrees to home with HH.
--- NOTE | 2024-04-26 14:23 | PM.PN ---
Progress Note: Subjective Subjective Interval history: Patient slow to improve. Continues to have severe swelling in legs up to abdomen. Skin firm and legs very heavy. Working with PT. Renal function stable. On bumex IV and oral metolazone. Normal PO and no emesis or diarrhea. No chest pain or palpitations. No SOB or cough. Exam Constitutional Vital Signs, click to edit/add: Last Vital Signs Temp 97.8 F 04/26/24 11:24 Pulse 84 04/26/24 14:00 Resp 18 04/26/24 11:24 BP 154/81 H 04/26/24 11:24 Pulse Ox 97 04/26/24 11:24 O2 Del Method Room Air 04/26/24 11:24 Documenting provider has reviewed patient's vital signs: yes Common normals: no apparent distress, oriented x3 and alert HENMT Common normals: normocephalic Eye Common normals: PERRL and EOMs intact bilaterally Respiratory Common normals: normal respiratory effort Auscultation: crackles Laterality: bilateral Cardio Common normals: regular rate, regular rhythm, no gallops, no murmurs and no rub GI Common normals: Normal to inspection, nondistended, normoactive bowel sounds present and non-tender Extremity Common normals: pedal edema (3+ bilateral pitting edema) Progress Note: Objective Labs Labs: Short CBC 04/26/24 Range/Units 05:47 WBC 7.6 (4.0-11.0) 10^3/uL Hgb 8.0 L (12.0-16.0) g/dL Hct 25.2 L (36.0-48.0) % Plt Count 251 (150-450) 10^3/uL BMP 04/26/24 05:47 Sodium 139 Potassium 4.1 Chloride 102 Carbon Dioxide 30.9 BUN 44.0 H Creatinine 2.52 H Glucose 110 H Calcium 9.1 Liver Function 04/26/24 Range/Units 05:47 Total Bilirubin 0.4 (0.2-1.0) mg/dL AST 39 H (15-37) U/L ALT 18 (14-59) U/L Alkaline Phosphatase 160 H (46-116) U/L Albumin 2.9 L (3.4-5.0) g/dL Progress Note: A&P Assessment and Plan (1) Acute on chronic heart failure with preserved ejection fraction (HFpEF): (2) Fluid overload: (3) Hepatorenal syndrome: (4) Pulmonary hypertension: (5) Hypertension: Qualifiers: Hypertension type: primary hypertension Qualified Code(s): I10 - Essential (primary) hypertension (6) Paroxysmal atrial fibrillation: (7) Hypomagnesemia: (8) Ulcer of right heel: Qualifiers: Non-pressure ulcer stage: limited to breakdown of skin Qualified Code(s): L97.411 - Non-pressure chronic ulcer of right heel and midfoot limited to breakdown of skin (9) Chronic kidney disease, stage 4 (severe): (10) Valvular heart disease: (11) Hypoalbuminemia due to protein-calorie malnutrition: (12) Hypothyroidism: Qualifiers: Hypothyroidism type: acquired Qualified Code(s): E03.9 - Hypothyroidism, unspecified Plan Slow to improve and continues to have significant edema. Repeat bumex drip and monitor renal function. Continue oral metolazone. Continue PT/OT for weakness. Monitor vitals. Urinary Catheter Management Urinary Catheter Management Urethral: Cath placed during this visit: yes Urethral indwelling: Yes Reason for continuing: measure accurate output Insertion date: 04/22/24 Insertion time: 00:53
--- NOTE | 2024-04-26 14:25 | SWNOTE1 ---
SW walked by room and pt was on phone and waved SW to come in. SW stopped in and pt was talking to her daughter Alicia. Pt wanted to get daughter on emergency contact information. SW did let daughter and pt know that nurse is able to update one family member and then that family member can update the rest of family. Pt voiced nurse can talk to all of her kids she does not care. SW stated the nurse can only talk to one as she can't make multiple phone calls to all pt's family members, there has to be one point of contact. Daughter and pt voiced understanding. SW added daughter to the face sheet. SW and pt and daughter spoke about discharge plans. SW let Alicia know about the HH and plan B of skilled and that pt is wanting to return home. Nurse came in room as well and gave the daughter medical update. Nurse and SW expressed that pt will need assistance in the home if she does go home. Pt continually asked if she could go home with catheter. Daughter stated she has her own kids and lives about an hour away. She spoke of pt's significant other being worried as well. SW let her know that pt did not want to call him earlier, but we can call now. At this time daughter has voiced she won't be able to help much in the home if at all. SW called pt's significant other, Tag, with pt. SW spoke with Tag about discharge plans as well. SW let him know that [facility] is set up and explained what HH would do. SW also let him know that the plan B would be rehab, but at this time [facility], and [place] can't accept. Pt voiced that she wants to try it at home and if it does not work she will go to rehab. SW let her know that once she is home SW can't get her placed at facility. She stated she will come back to the hospital. Tag does have concerns about her going home, SW did express that it is here decision and SW can't force her to go to rehab. He did stated he works 5 days a week for 8 hours. At this time SW has expressed to pt several times that she would benefit from SNF. Pt did voice to SW that she did get up and move more today and once swelling does down more she will get around better. SW let her know, as did nurse, that she will need assistance as she needs help getting out of the chair. SW let pt and Tag know that SW will continue to look for nursing facilities, but if pt is discharged over the weekend, it will be her decision to go home with home health. AYUSH spoke to Fatimah at [facility] and they do not have beds.
--- NOTE | 2024-04-26 15:58 | SWNOTE1 ---
At this time SW does not have a facility for pt to go to and she is just wanting to go home with HH. Packet is on floor with HH information.
[2024-04-27] VITALS (16 sets, daily range): BP systolic 130–146; BP diastolic 70–88; PULSE 75–102; TEMP 36.3–36.8; O2SAT 93–97
[2024-04-27] MEDS: LEVOTHYROXINE SODIUM 125 MCG TABLET PO (05:38)
[2024-04-27] MEDS: ENSURE ORIGINAL 237 ML BOTTLE PO ×2 (05:38→14:11)
[2024-04-27 06:48] LABS: Basophils Percent Auto 0.5 % (0.2-2.0); Eosinophils Absolute Auto 0.3 10^3/uL (0.0-0.7); Eosinophils Percent Auto 3.6 % (0.9-7.0); Hematocrit 24.2 % (36.0-48.0); Hemoglobin 7.8 g/dL (12.0-16.0); Immature Granulocytes Abs Auto 0.11 10^3/uL (0.00-0.03); Immature Granulocytes Pct Auto 1.5 % (0.0-0.5); Lymphocytes Absolute Auto 1.5 10^3/uL (1.2-3.8); Lymphocytes Percent Auto 19.3 % (20.5-60.0); Mean Corpuscular HGB Conc 32.2 g/dL (29.9-35.2); Mean Corpuscular Hemoglobin 32.5 pg (26.7-34.0); Mean Corpuscular Volume 100.8 fL (81.0-99.0); Mean Platelet Volume 9.2 fL (9.5-13.5); Monocytes Absolute Auto 1.1 10^3/uL (0.3-0.8); Monocytes Percent Auto 14.4 % (1.7-12.0); Neutrophils Absolute Auto 4.6 10^3/uL (1.4-6.5); Neutrophils Percent Auto 60.7 % (43.0-75.0); Platelet Count 253 10^3/uL (150-450); Red Cell Distribution Width 14.7 % (11.0-15.0); White Blood Count 7.6 10^3/uL (4.0-11.0)
[2024-04-27 07:16] LABS: Anion Gap 13.8; BUN Creatinine Ratio 21.5; Calcium 9.3 mg/dL (8.5-10.1); Carbon Dioxide 28.4 mmol/L (21.0-32.0); Chloride 101 mmol/L (98-107); Estimated GFR (African America 23 (>=60 mL/min/1.73m^2); Estimated GFR (Non-African Ame 19 (>=60 mL/min/1.73m^2); Glucose 115 mg/dL (74-106); Potassium 4.2 mmol/L (3.5-5.1); Sodium 139 mmol/L (136-145)
[2024-04-27] MEDS: PROSTAT 15 GM PROTEIN/100 CAL 30 ML LIQUID PACKET PO ×2 (08:16→21:51)
[2024-04-27] MEDS: METOPROLOL TARTRATE 50 MG TABLET 75 MG PO ×2 (08:17→21:51)
[2024-04-27] MEDS: MAGNESIUM OXIDE 400 MG TABLET PO ×2 (08:17→21:51)
[2024-04-27] MEDS: APIXABAN 5 MG TABLET PO (08:17)
[2024-04-27] MEDS: LOSARTAN POTASSIUM 25 MG TABLET PO (08:17)
[2024-04-27] MEDS: THIAMINE MONONITRATE (VIT B1) 100 MG TABLET PO (08:17)
[2024-04-27] MEDS: OMEPRAZOLE 20 MG CAPSULE.DR PO (08:17)
[2024-04-27] MEDS: ISOSORBIDE MONONITRATE 30 MG TAB.ER.24H PO (09:50)
[2024-04-27] MEDS: FERROUS SULFATE 325 MG TABLET PO ×2 (09:50→21:51)
--- NOTE | 2024-04-27 10:38 | PT.DAILY ---
Physical Therapy Daily Note PT Daily Note/Assess Start: 04/23/24 12:09 Freq: Status: Active Protocol: Document 04/27/24 10:24 [id number] (Rec: 04/27/24 10:38 [id number]) Physical Therapy Daily Note/Assessment Time In/Time Out Time In 09:13 Time Out 09:33 Pain In Pain Level 6 Pain Out Pain Level 6 Subjective Subjective Patient received supine in bed with HOB elevated. States she hurts all over at 6/10 and her R foot is 7-8 /10. Patient agreeable to participate with PT and requests to work on her ability to get out of the chair . Therapeutic Exercise Time Therapeutic Exercise 8 Minutes (minutes) Therapeutic Exercise 1 Units Therapeutic Exercise Treatment Therapeutic Exercise Patient performed supine TAMARA LE ther ex @ 10 reps for Treatment ankle pumps, quad sets, heel slides and SLR without assist. When seated in chair performs LAQ's and resisted hip ABD/ADD x 10 reps. All ther ex performed to increase TAMARA LE strength and functional mobility. Therapeutic Activity Time Therapeutic Activity 12 Minutes (minutes) Therapeutic Activity 1 Units Therapeutic Activity Treatment Bed Mobility Ability Contact Guard Assist Chair Transfer Minimum Assist,Moderate Assist Ability Therapeutic Activity Supine> L sit with use of bed rail, patient requires Comments additional time to perform, with VC's and encouragement able to complete without assistance into sitting position. No LOB while seated at EOB, patients posture is considerably kyphotic, able to self correct with VC 's but does not keep appropriate posture. Sit>stand to 2WW is MIN A +1 with VC's for safe hand placement. Patient ambulated ~20' x 1 with 2WW and CGA +1 with slow pace and R LE antalgic gait. Patient seated in chair at bedside and required ~1 minute therapeutic rest break due to fatigue. Patient performed TAMARA LE ther ex. Patient performed 2 reps of sit>stands with MOD A +1 and VC's for safe hand placement. Patient states she is spent and gives up . With encouragement , patient declines to perform additional sit to stands. Patients needs met and CBWR. Total Physical Therapy Time Total Therapy 20 Minutes Total Physical 2 Therapy Units Summary Daily Note Summary Patient fatigues quickly with functional exertion. Improve bed mobility demonstrated with cues. Patient would benefit from HH PT or SNF to address functional deficits for safety in order to return to PLOF.
--- NOTE | 2024-04-27 11:20 | US_ITS ---
The [address] [address] Patient Name: ORESTES ALVARES MRN: [id number] date: 1965 Sex: F Assigned Patient Location: MS Current Patient Location: [place] Accession/Order Number: [id number] Exam Date: 04/27/2024 11:42 Report Date: 04/27/2024 13:07 At the request of: DEA LEDEZMA Procedure: US venous doppler UE RT PROCEDURE: US venous doppler UE RT, 04/27/2024 11:42 AM EST CLINICAL INDICATIONS: Progressive right upper extremity edema for one week, chronic heart failure, recent fall 6 days earlier COMPARISON: None TECHNIQUE: Right upper extremity duplex, grayscale, color and spectral assessment. FINDINGS: The visualized right internal jugular, right subclavian, right axillary, right brachial, right basilic, right cephalic, right antecubital, right radial, right ulnar vein show no sign of filling defect on grayscale or color assessment. There is apparent compressibility throughout the imaged segments. Spectral assessment shows spontaneous antegrade venous waveform with normal velocity response to augmentation and respirations. Subcutaneous edema is present. US/US venous doppler UE RT IMPRESSION: 1. Right upper extremity subcutaneous edema 2. No sign of right upper extremity deep venous thrombosis. Electronically authenticated by: YEHUDA VILLAGRAN Date: 04/27/2024 13:07
--- NOTE | 2024-04-27 11:25 | XR_ITS ---
The [address] [address] Patient Name: ORESTES ALVARES MRN: [id number] date: 1965 Sex: F Assigned Patient Location: MS Current Patient Location: Accession/Order Number: [id number] Exam Date: 04/27/2024 13:00 Report Date: 04/27/2024 14:28 At the request of: DEA LEDEZMA Procedure: XR chest 2V EXAMINATION: XR chest 2V REASON FOR EXAM: Increasing LAL. COMPARISON STUDY: 04/21/2024. TECHNIQUE: 2 views. FINDINGS: There is cardiomegaly and pulmonary venous congestion with interstitial prominence and mild volume pleural effusions and fissural thickening. Findings suggest volume overload. Focal atelectasis identified in the left lower lobe. No pneumothorax. XR/XR chest 2V IMPRESSION: 1. Findings suggest volume overload with interstitial edema and mild volume bilateral pleural effusions, left greater than right. 2. Associated atelectasis at left base. Electronically authenticated by: SANDY RASHID Date: 04/27/2024 14:28
--- NOTE | 2024-04-27 11:26 | P.PN_ITS ---
Progress Note: Subjective Subjective Interval history: Patient is to a significant dyspnea especially with any activity, even getting from chair to bedside, she feels the pressure in her legs is better, but cough now with significant sputum production Exam Constitutional Vital Signs, click to edit/add: Last Vital Signs Temp 98.2 F 04/27/24 08:00 Pulse 87 04/27/24 09:54 Resp 20 04/27/24 08:00 BP 130/79 04/27/24 08:00 Pulse Ox 94 L 04/27/24 08:00 O2 Del Method Room Air 04/27/24 08:00 Documenting provider has reviewed patient's vital signs: yes Common normals: apparent distress (Moderate conversational dyspnea) Chest Common normals: inspection of chest normal Respiratory Common normals: abnormal respiratory effort (Moderate conversational dyspnea) Auscultation: rhonchi and diminished lung sounds Cardio Common normals: regular rate and regular rhythm GI Common normals: Normal to inspection, nondistended, normoactive bowel sounds present Extremity Common normals: abnormal to inspection (1+ edema, much improved, wrinkles have returned) Right upper extremity: upper arm (Edema to right arm) Progress Note: Objective Labs Labs: Short CBC 04/27/24 Range/Units 06:26 WBC 7.6 (4.0-11.0) 10^3/uL Hgb 7.8 L (12.0-16.0) g/dL Hct 24.2 L (36.0-48.0) % Plt Count 253 (150-450) 10^3/uL BMP 04/27/24 06:26 Sodium 139 Potassium 4.2 Chloride 101 Carbon Dioxide 28.4 BUN 56.0 H Creatinine 2.60 H Glucose 115 H Calcium 9.3 Progress Note: A&P Assessment and Plan (1) Acute on chronic heart failure with preserved ejection fraction (HFpEF): (2) Fluid overload: (3) Hepatorenal syndrome: (4) Pulmonary hypertension: (5) Hypertension: Qualifiers: Hypertension type: primary hypertension Qualified Code(s): I10 - Essential (primary) hypertension (6) Paroxysmal atrial fibrillation: (7) Hypomagnesemia: (8) Ulcer of right heel: Qualifiers: Non-pressure ulcer stage: limited to breakdown of skin Qualified Code(s): L97.411 - Non-pressure chronic ulcer of right heel and midfoot limited to breakdown of skin (9) Chronic kidney disease, stage 4 (severe): (10) Valvular heart disease: (11) Hypoalbuminemia due to protein-calorie malnutrition: (12) Hypothyroidism: Qualifiers: Hypothyroidism type: acquired Qualified Code(s): E03.9 - Hypothyroidism, unspecified Plan Acute on chronic heart failure with preserved ejection fraction (HFpEF):- Diuresed 11 L so far, 3.5 just yesterday alone, hold off on further diuretics today, creatinine is higher and edema looks much improved from the descriptions of previous evaluations Hepatorenal syndrome:-See plan above Pulmonary hypertension: Adjust medications Acute exacerbation of COPD-patient's cough is increased to compared to previous, will add antibiotics, increase frequency of aerosol treatments, check chest x- ray Hypertension: Adjusting medications Paroxysmal atrial fibrillation: Rate currently controlled Hypomagnesemia: Continue supplementation Ulcer of right heel: Check on culture results Chronic kidney disease, stage 4 (severe): See above Valvular heart disease: Maintain current medications Hypoalbuminemia due to protein-calorie malnutrition: Diet supplementation Hypothyroidism: Continue current medications Admission status: Patient with severe fluid retention, anasarca, has diuresed 11.3 L, medically necessary treatment will span more than 2 midnights, especially in light of patient's current exacerbation of COPD, inpatient status. Urinary Catheter Management Urinary Catheter Management Urethral: Cath placed during this visit: yes Urethral indwelling: Yes Reason for continuing: acute urinary retention Insertion date: 04/22/24 Insertion time: 00:53
[2024-04-27] MEDS: LEVOFLOXACIN 750 MG TABLET PO (12:39)
[2024-04-27] MEDS: TRIAMCINOLONE ACETONIDE 0.1% CREAM 15 GM TUBE 1 APPLIC TOPICAL ×2 (12:39→21:53)
[2024-04-27 16:00] LABS: Internal Control Within Normal Limits; Occult Blood Positive
[2024-04-27] MEDS: IPRATROPIUM/ALBUTEROL SULFATE 3 ML AMPUL.NEB IH ×2 (16:35→22:08)
[2024-04-27] MEDS: PANTOPRAZOLE SODIUM 40 MG VIAL IV (17:26)
[2024-04-27] MEDS: BUMETANIDE 10 MG in 0.9 % SODIUM CHLORIDE 160 ML IV (17:37)
[2024-04-28] VITALS (11 sets, daily range): BP systolic 127–150; BP diastolic 72–94; PULSE 94–117; TEMP 36.6–36.8; O2SAT 95–98
[2024-04-28] MEDS: IPRATROPIUM/ALBUTEROL SULFATE 3 ML AMPUL.NEB IH ×2 (04:07→11:07)
[2024-04-28] MEDS: ENSURE ORIGINAL 237 ML BOTTLE PO (05:51)
[2024-04-28] MEDS: LEVOTHYROXINE SODIUM 125 MCG TABLET PO (05:51)
[2024-04-28 06:14] LABS: Basophils Absolute Auto 0.1 10^3/uL (0.0-0.1); Basophils Percent Auto 0.6 % (0.2-2.0); Eosinophils Absolute Auto 0.3 10^3/uL (0.0-0.7); Eosinophils Percent Auto 3.3 % (0.9-7.0); Hemoglobin 7.1 g/dL (12.0-16.0); Immature Granulocytes Pct Auto 1.3 % (0.0-0.5); Lymphocytes Absolute Auto 1.4 10^3/uL (1.2-3.8); Lymphocytes Percent Auto 17.4 % (20.5-60.0); Mean Corpuscular HGB Conc 31.4 g/dL (29.9-35.2); Mean Corpuscular Hemoglobin 31.8 pg (26.7-34.0); Mean Corpuscular Volume 101.3 fL (81.0-99.0); Monocytes Absolute Auto 1.1 10^3/uL (0.3-0.8); Monocytes Percent Auto 14.2 % (1.7-12.0); Neutrophils Absolute Auto 4.9 10^3/uL (1.4-6.5); Neutrophils Percent Auto 63.2 % (43.0-75.0); Platelet Count 255 10^3/uL (150-450); Red Blood Count 2.23 10^6/uL (4.20-5.40); Red Cell Distribution Width 14.8 % (11.0-15.0); White Blood Count 7.8 10^3/uL (4.0-11.0)
[2024-04-28 06:30] LABS: Hematocrit 22.6 % (36.0-48.0)
[2024-04-28 06:36] LABS: Anion Gap 12.9; BUN Creatinine Ratio 22.5; Calcium 9.2 mg/dL (8.5-10.1); Carbon Dioxide 30.1 mmol/L (21.0-32.0); Chloride 99 mmol/L (98-107); Estimated GFR (African America 20 (>=60 mL/min/1.73m^2); Estimated GFR (Non-African Ame 17 (>=60 mL/min/1.73m^2); Glucose 152 mg/dL (74-106); Sodium 138 mmol/L (136-145)
[2024-04-28 06:51] LABS: Magnesium 1.3 mg/dL (1.8-2.4)
[2024-04-28 07:16] LABS: NT Pro B Type Natriuretic Pept >35000.0 pg/mL (<=900.0)
[2024-04-28] MEDS: THIAMINE MONONITRATE (VIT B1) 100 MG TABLET PO (08:42)
[2024-04-28] MEDS: LOSARTAN POTASSIUM 25 MG TABLET PO (08:42)
[2024-04-28] MEDS: FERROUS SULFATE 325 MG TABLET PO (08:42)
[2024-04-28] MEDS: PROSTAT 15 GM PROTEIN/100 CAL 30 ML LIQUID PACKET PO (08:42)
[2024-04-28] MEDS: ISOSORBIDE MONONITRATE 30 MG TAB.ER.24H PO (08:42)
[2024-04-28] MEDS: MAGNESIUM OXIDE 400 MG TABLET PO (08:42)
[2024-04-28] MEDS: METOPROLOL TARTRATE 50 MG TABLET 75 MG PO (08:42)
[2024-04-28] MEDS: TRIAMCINOLONE ACETONIDE 0.1% CREAM 15 GM TUBE 1 APPLIC TOPICAL (08:43)
[2024-04-28] MEDS: MAGNESIUM SULFATE IN WATER 4 GM/100 ML PIGGYBACK IV (08:59)
--- NOTE | 2024-04-28 10:49 | P.DS_ITS ---
DS: Providers Provider Date of admission: 04/22/24 08:57 Primary care physician: MARIA DE JESUS ALVARADO Consults: 04/22/24 07:00 Consult to Cardiology Routine Reason for consultation: a-fib; chf exacerbation Has provider been notified: No 04/22/24 08:08 Consult to Dietitian Routine Reason for consultation: severe malnutrition Has provider been notified: No 04/22/24 08:09 Consult to Wound Care Routine Consulting Provider: Lucas Palafox Reason for consultation: bilateral foot/leg wounds Has provider been notified: No Occupational Therapy Eval and Treat Routine Reason for consultation: weakness/swelling Has provider been notified: No Physical Therapy Eval and Treat Routine Reason for consultation: weakness, swelling Has provider been notified: No DS: Diagnosis Discharge Diagnosis (1) Acute on chronic heart failure with preserved ejection fraction (HFpEF): (2) Fluid overload: (3) Hepatorenal syndrome: (4) Pulmonary hypertension: (5) Hypertension: Qualifiers: Hypertension type: primary hypertension Qualified Code(s): I10 - Essential (primary) hypertension (6) Paroxysmal atrial fibrillation: (7) Hypomagnesemia: (8) Ulcer of right heel: Qualifiers: Non-pressure ulcer stage: limited to breakdown of skin Qualified Code(s): L97.411 - Non-pressure chronic ulcer of right heel and midfoot limited to breakdown of skin (9) Chronic kidney disease, stage 4 (severe): (10) Valvular heart disease: (11) Hypoalbuminemia due to protein-calorie malnutrition: (12) Hypothyroidism: Qualifiers: Hypothyroidism type: acquired Qualified Code(s): E03.9 - Hypothyroidism, unspecified Plan Acute on chronic heart failure with preserved ejection fraction (HFpEF): Diuresed 14 L with a net of 11.8 L Hepatorenal syndrome:-See plan above Pulmonary hypertension: Adjust medications Acute exacerbation of COPD-improving at the time of discharge Hypertension: Adjusting medications Paroxysmal atrial fibrillation: Rate currently controlled Hypomagnesemia: Continue supplementation Ulcer of right heel: Check on culture results Chronic kidney disease, stage 4 (severe): See above Valvular heart disease: Maintain current medications Hypoalbuminemia due to protein-calorie malnutrition: Diet supplementation Hypothyroidism: Continue current medications Admission status: Patient with severe fluid retention, anasarca, has diuresed 11.3 L, medically necessary treatment will span more than 2 midnights, especially in light of patient's current exacerbation of COPD, inpatient status. DS: Summary Hospital Course Hospital Course: Patient admitted with acute combined congestive heart failure, she was diuresed with IV Bumex, Bumex drip on several occasions, she had good urine output, she diuresed a total of 14.8 L, with a net of 11.8 L. She feels improved with her ambulation, legs feel less heavy, only issue really is her creatinine is somewhat elevated today compared to her baseline. Her magnesium level is also significantly low, she did receive a IV dose of magnesium this morning, her hemoglobin is down as well, her stool is occult positive but she has hemorrhoids, she is on Protonix currently, if she is stable this afternoon, ambulating safely, hemoglobin remained stable and magnesium improved she will be discharged to home in improving condition. Medications see list. Follow-up with her PCP next week. Status at Discharge Overall status at discharge: patient is not back to baseline Time Spent with Patient Time attestation: Total time spent providing and/or coordinating discharge services: Time spent: greater than 30 minutes Exam Constitutional Vital Signs, click to edit/add: Last Vital Signs Temp 98.2 F 04/28/24 08:10 Pulse 106 H 04/28/24 08:10 Resp 18 04/28/24 08:10 BP 150/94 H 04/28/24 08:10 Pulse Ox 95 04/28/24 08:10 O2 Del Method Room Air 04/28/24 08:10 Documenting provider has reviewed patient's vital signs: yes Common normals: apparent distress (Moderate conversational dyspnea) Chest Common normals: inspection of chest normal Respiratory Common normals: abnormal respiratory effort (Much improved conversational dyspnea) Auscultation: rhonchi (Much better air exchange) and diminished lung sounds Cardio Common normals: regular rhythm Rate: tachycardic GI Common normals: Normal to inspection, nondistended, normoactive bowel sounds present Extremity Common normals: abnormal to inspection (1+ edema, much improved, wrinkles have returned) Right upper extremity: upper arm (Edema to right arm) DS: Data Data Completed and Pending Labs on day of discharge: Labs from last 24 hours 04/28/24 04/27/24 06:01 12:45 WBC 7.8 RBC 2.23 L Hgb 7.1 L Hct 22.6 L* MCV 101.3 H MCH 31.8 MCHC 31.4 RDW 14.8 Plt Count 255 MPV 9.0 L Neut % (Auto) 63.2 Lymph % (Auto) 17.4 L [place] % (Auto) 14.2 H Eos % (Auto) 3.3 Baso % (Auto) 0.6 Neut # (Auto) 4.9 Lymph # (Auto) 1.4 [place] # (Auto) 1.1 H Eos # (Auto) 0.3 Baso # (Auto) 0.1 Abs Immat Gran (auto) 0.10 H Imm/Tot Granulo (auto) 1.3 H Sodium 138 Potassium 4.0 Chloride 99 Carbon Dioxide 30.1 Anion Gap 12.9 BUN 64.0 H Creatinine 2.85 H Est GFR ( Amer) 20 L Est GFR (Non-Af Amer) 17 L BUN/Creatinine Ratio 22.5 Glucose 152 H Calcium 9.2 Magnesium 1.3 L NT-Pro-B Natriuret Pep >36293.0 H* Stool Occult Blood Positive A Discharge Plan Discharge Disposition: Home Health Service Condition: Fair Discharge Medications: New triamcinolone acetonide 0.1 % Cream 1 applic topical BID Qty: 80 11RF ferrous sulfate 325 mg (65 mg iron) Tablet 325 mg PO BID Qty: 60 11RF losartan 25 mg Tablet 25 mg PO QD Qty: 30 11RF metoprolol tartrate 50 mg Tablet 75 mg PO BID Qty: 60 11RF nystatin 100,000 unit/gram powder 1 applic topical BID Qty: 60 11RF pantoprazole [Protonix] 40 mg tablet,delayed release (DR/EC) 40 mg PO DAILY Qty: 30 11RF bumetanide 1 mg tablet 1 mg PO DAILY Qty: 30 11RF potassium chloride 10 mEq tablet extended release 10 meq PO BID Qty: 60 11RF isosorbide mononitrate 30 mg tablet extended release 24 hr 30 mg PO QAM Qty: 30 11RF levofloxacin 500 mg tablet 500 mg PO Q24H 7 Days Qty: 7 0RF Eliquis 2.5 mg tablet 2.5 mg PO BID Qty: 60 11RF hydrocortisone [Proctozone-HC] 2.5 % cream with perineal applicator 1 applic LA BID PRN (Reason: hemorrhoids) Qty: 30 0RF Continued magnesium oxide 400 mg (241.3 mg magnesium) tablet 400 mg PO BID levothyroxine 100 mcg tablet 100 mcg PO DAILY cholecalciferol (vitamin D3) 125 mcg (5,000 unit) capsule 5,000 unit PO DAILY PRN (Reason: supplement) thiamine mononitrate (vit B1) 100 mg tablet 100 mg PO DAILY (KARINA) geeta Horner See Rx Instructions .Route Qty: 1 0RF Rx Instructions: As directed Discontinued metoprolol tartrate 100 mg tablet 150 mg PO DAILY omeprazole 20 mg capsule,delayed release(DR/EC) 20 mg PO DAILY Print Language: Portuguese Forms: Portal Instructions
[2024-04-28] MEDS: HYDROCORTISONE HC 2.5% RECTAL CREAM 30 APPLIC TUBE PR (12:51)
[2024-04-28 13:13] LABS: Hematocrit 24.3 % (36.0-48.0); Hemoglobin 7.7 g/dL (12.0-16.0); Mean Corpuscular HGB Conc 31.7 g/dL (29.9-35.2); Mean Corpuscular Hemoglobin 32.2 pg (26.7-34.0); Mean Corpuscular Volume 101.7 fL (81.0-99.0); Mean Platelet Volume 8.9 fL (9.5-13.5); Platelet Count 280 10^3/uL (150-450); Red Blood Count 2.39 10^6/uL (4.20-5.40); Red Cell Distribution Width 14.9 % (11.0-15.0); White Blood Count 9.6 10^3/uL (4.0-11.0)
[2024-04-28 13:19] LABS: Magnesium 2.4 mg/dL (1.8-2.4)
--- NOTE | 2024-04-29 09:43 | SWNOTE1 ---
AYUSH faxed dc med rec, dc summary, and CRF to [facility].
--- NOTE | 2024-04-29 15:20 | CM.DCFOLLOWU ---
Person spoke with: Juanita How are you feeling? Better How is your pain? No pain Did you understand your discharge instructions? Yes Do you have any questions about your discharge instructions? Yes Were you given any prescriptions at discharge? Yes Were you able to get your prescriptions filled? Yes Do you understand how to take your medications as ordered? Yes Do you have any questions about your follow up appointment and do you plan to keep your follow up appointment? No I will call and schedule tomorrow Is there anything else that you would like to discuss? No Questions/Comments/Concerns/Other:
--- NOTE | 2024-05-01 10:32 | SWNOTE1 ---
AYUSH received a call from [place] at [facility], they are going to see her today and was wondering if there was a wound care order. AYUSH went back through chart and there was no order. AYUSH faxed over the wound care assessment completed by nursing to [facility].
== END 2024-04-28 16:08 | disposition home health service (06) | DRG 291 ==
LOC: ER 04-22 00:34 → MS 04-26 08:58
PROVIDERS: Family Medicine; Registered Nurse; Admitting Provider Family Medicine; Emergency Provider Emergency Medicine; PCP Family Medicine; Visit Provider Family Medicine
DX: I13.0 Hypertensive heart and chronic kidney disease with heart failure and stage 1 through stage 4 chronic kidney disease, or unspecified chronic kidney disease (principal); I50.33 Acute on chronic diastolic (congestive) heart failure; K76.7 Hepatorenal syndrome; E87.20 Acidosis, unspecified; I50.1 Left ventricular failure, unspecified; N18.4 Chronic kidney disease, stage 4 (severe); L97.411 Non-pressure chronic ulcer of right heel and midfoot limited to breakdown of skin; E46 Unspecified protein-calorie malnutrition; J44.1 Chronic obstructive pulmonary disease with (acute) exacerbation; E03.9 Hypothyroidism, unspecified; E83.42 Hypomagnesemia; E83.51 Hypocalcemia; E88.09 Other disorders of plasma-protein metabolism, not elsewhere classified; F10.10 Alcohol abuse, uncomplicated; F17.210 Nicotine dependence, cigarettes, uncomplicated; F32.A Depression, unspecified; F41.1 Generalized anxiety disorder; G47.30 Sleep apnea, unspecified; I08.1 Rheumatic disorders of both mitral and tricuspid valves; I27.22 Pulmonary hypertension due to left heart disease; I48.0 Paroxysmal atrial fibrillation; K21.9 Gastro-esophageal reflux disease without esophagitis; K64.9 Unspecified hemorrhoids; K70.10 Alcoholic hepatitis without ascites; Y90.0 Blood alcohol level of less than 20 mg/100 ml; Z79.890 Hormone replacement therapy; Z79.899 Other long term (current) drug therapy; Z88.1 Allergy status to other antibiotic agents; Z88.8 Allergy status to other drugs, medicaments and biological substances; Z82.49 Family history of ischemic heart disease and other diseases of the circulatory system; Z91.81 History of falling; Z68.29 Body mass index [BMI] 29.0-29.9, adult
CPT/HCPCS: 36415; 51702; 71045; 71046; 80048; 80053; 80061; 81001; 83605; 83735; 83880; 84443; 84484; 85025; 85027; 87070; 87086; 93005; 93306; 93971; 94640; 94667; 94668; 96374; 97110; 97161; 97165; 97530; 97535; 99285; 99406; G0328; J1650; J1940; J3475; P9046

== ENCOUNTER 2024-06-12 17:31 | Inpatient (IN) | payer OTHER, SELFPAY ==
[2024-06-12] VITALS (48 sets, daily range): BP systolic 103–159; BP diastolic 54–116; PULSE 56–94; TEMP 33.1–35.5; O2SAT 85–100; BMI 28.3
--- NOTE | 2024-06-12 17:42 | ECG_ITS ---
The [facility] Test Date: 2024-06-12 Pat Name: ORESTES ALVARES Department: Room: - Gender: Female Car Porter: : 1965 Requested By: [id number] Order Number: [id number] Reading MD: KAREN FRANCE M.D. Measurements Intervals [place] Rate: 73 P: -[id number] [place]: -[id number] QRS: 95 QRSD: 84 T: 50 QT: 454 QTc: 480 Interpretive Statements 1210 Atrial fibrillation 3113 Cannot rule out anterior myocardial infarction, probably old 7102 Moderate right axis deviation 8100 Low QRS voltage 9150 abnormal ECG Compared to ECG 04/22/2024 13:36:01 Possible myocardial infarct finding now present Right-axis deviation now present T-wave abnormality no longer present Possible ischemia no longer present Electronically Signed On 06-13-2024 6:41:57 EST by KAREN FRANCE M.D.
--- NOTE | 2024-06-12 17:43 | ED_ITS ---
Documented by User: Kristina Kim 06/12/24 21:51 HPI HPI - General Adult General Chief complaint: Weakness Stated complaint: WEAKNESS Time Seen by Provider: 06/12/24 17:33 History of Present Illness HPI narrative: 59 year old female presents to the ED for generalized weakness, edema, inability to care for herself. States her significant other called EMS to bring her to the ED today. States she has been sitting in her chair at home for days. She was unable to get up today to get herself something to eat. She has not taken any of her medication today. She has hx CHF, a-fib, CKD. She is prescribed Eliquis, metoprolol, and Bumex. She is a smoker. EMS reported there were multiple bottles of alcohol around the patient on the floor. Related Data Home Medications ?Medication ?Instructions ?Recorded ?Confirmed cholecalciferol (vitamin D3) 125 5,000 unit PO DAILY PRN supplement 02/13/23 06/12/24 mcg (5,000 unit) capsule levothyroxine 100 mcg tablet 100 mcg PO DAILY 02/13/23 06/12/24 thiamine mononitrate (vit B1) 100 100 mg PO DAILY 02/13/23 06/12/24 mg tablet magnesium oxide 400 mg (241.3 mg 400 mg PO BID 04/22/24 06/12/24 magnesium) tablet Previous Rx's ?Medication ?Instructions ?Recorded geeta #1 ea 02/17/23 apixaban 2.5 mg tablet (Eliquis) 2.5 mg PO BID #60 tabs 04/28/24 bumetanide 1 mg tablet 1 mg PO DAILY #30 tabs 04/28/24 ferrous sulfate 325 mg (65 mg 325 mg PO BID #60 tabs 04/28/24 iron) tablet isosorbide mononitrate 30 mg 30 mg PO QAM #30 tabs 04/28/24 tablet,extended release 24 hr losartan 25 mg tablet 25 mg PO QD #30 tabs 04/28/24 metoprolol tartrate 50 mg tablet 75 mg (1.5 x 50 mg) PO BID #60 tabs 04/28/24 pantoprazole 40 mg tablet,delayed 40 mg PO DAILY #30 tabs 04/28/24 release (Protonix) potassium chloride 10 mEq 10 meq PO BID #60 tabs 04/28/24 tablet,extended release Allergies Allergy/AdvReac Type Severity Reaction Status Date / Time cephalexin (From Keflex) Allergy swelling Verified 02/19/24 14:43 prednisone Allergy swelling Verified 02/19/24 14:43 Opioid HPI Opioid Management Most Recent Opioid Data: Last Pain Scale 5 06/12/24 17:58 06/12/24 Last Pain Intensity 6 04/27/24 10:24 04/27/24 Last ED Pain Assessment 06/12/24 17:58 Last ORT Total Score 0 04/22/24 01:18 04/22/24 Last ORT Risk Category Low Risk 04/22/24 01:18 04/22/24 Ur Phencyclidine Scrn Negative (NEGATIVE) 02/13/23 05: 1109/30 Review of Systems ROS Constitutional Reports: fatigue; Denies: fever or chills Ears, nose, mouth, and throat Denies: throat pain, neck pain or nasal congestion Cardiovascular Denies: chest pain Respiratory Reports: shortness of breath and cough Gastrointestinal Denies: abdominal pain, vomiting or diarrhea Genitourinary Denies: painful urination Musculoskeletal Denies: back pain or neck pain Neurological Reports: weakness in extremities; Denies: headache, numbness in extremities or dizziness PFSH PFSH Medical History Paroxysmal atrial fibrillation ?I48.0 - Paroxysmal atrial fibrillation (ICD-10) Chronic kidney disease, stage 4 (severe) ?N18.4 - Chronic kidney disease, stage 4 (severe) (ICD-10) Acute on chronic heart failure with preserved ejection fraction (HFpEF) ?I50.33 - Acute on chronic diastolic (congestive) heart failure (ICD-10) Ulcer of right heel ?L97.419 - Non-pressure chronic ulcer of right heel and midfoot with unspecified severity (ICD-10) Hepatorenal syndrome ?K76.7 - Hepatorenal syndrome (ICD-10) Pulmonary hypertension ?I27.20 - Pulmonary hypertension, unspecified (ICD-10) Valvular heart disease ?I38 - Endocarditis, valve unspecified (ICD-10) Fluid overload ?E87.70 - Fluid overload, unspecified (ICD-10) Hypothyroidism ?E03.9 - Hypothyroidism, unspecified (ICD-10) Hypomagnesemia ?E83.42 - Hypomagnesemia (ICD-10) Hypoalbuminemia due to protein-calorie malnutrition ?E88.09 - Other disorders of plasma-protein metabolism, not elsewhere classified (ICD-10) ?E46 - Unspecified protein-calorie malnutrition (ICD-10) Hypertension ?I10 - Essential (primary) hypertension (ICD-10) Atrial fibrillation ?I48.91 - Unspecified atrial fibrillation (ICD-10) Chronic renal disease ?N18.9 - Chronic kidney disease, unspecified (ICD-10) Hypokalemia ?E87.6 - Hypokalemia (ICD-10) Hypocalcemia ?E83.51 - Hypocalcemia (ICD-10) Accidental fall ?W19.XXXA - Unspecified fall, initial encounter (ICD-10) Fracture of nasal bone ?S02.2XXA - Fracture of nasal bones, initial encounter for closed fracture (ICD-10) Hyponatremia ?E87.1 - Hypo-osmolality and hyponatremia (ICD-10) Hyperammonemia ?E72.20 - Disorder of urea cycle metabolism, unspecified (ICD-10) Hepatic encephalopathy ?K76.82 - Hepatic encephalopathy (ICD-10) Tobacco abuse ?Z72.0 - Tobacco use (ICD-10) Frequent falls ?R29.6 - Repeated falls (ICD-10) Lactic acidosis ?E87.20 - Acidosis, unspecified (ICD-10) Acute on chronic heart failure ?I50.9 - Heart failure, unspecified (ICD-10) Congestive heart failure ?I50.9 - Heart failure, unspecified (ICD-10) GERD (gastroesophageal reflux disease) ?K21.9 - Gastro-esophageal reflux disease without esophagitis (ICD-10) Stomach ulcer ?K25.9 - Gastric ulcer, unspecified as acute or chronic, without hemorrhage or perforation (ICD-10) Sigmoid diverticulosis ?K57.30 - Diverticulosis of large intestine without perforation or abscess without bleeding (ICD-10) Caries involving multiple surfaces of tooth ?K02.9 - Dental caries, unspecified (ICD-10) Renal cyst, acquired, left ?N28.1 - Cyst of kidney, acquired (ICD-10) Anxiety and depression ?F41.9 - Anxiety disorder, unspecified (ICD-10) ?F32.A - Depression, unspecified (ICD-10) Atrial fibrillation ?I48.91 - Unspecified atrial fibrillation (ICD-10) Smoker ?F17.200 - Nicotine dependence, unspecified, uncomplicated (ICD-10) Kidney failure ?N19 - Unspecified kidney failure (ICD-10) Alcohol abuse ?F10.10 - Alcohol abuse, uncomplicated (ICD-10) Surgical History History of endometrial ablation ?Z98.890 - Other specified postprocedural states (ICD-10) H/O section ?Z98.891 - History of uterine scar from previous surgery (ICD-10) Status post breast biopsy ?Z98.890 - Other specified postprocedural states (ICD-10) History of lumpectomy of both breasts ?Z98.890 - Other specified postprocedural states (ICD-10) S/P ablation of atrial fibrillation ?Z98.890 - Other specified postprocedural states (ICD-10) ?Z86.79 - Personal history of other diseases of the circulatory system (ICD- 10) Family History Father Family history of CHF (congestive heart failure) Family history of diabetes mellitus Family history of hypertension Family history of myocardial infarction Mother Family history of cancer Family history of diabetes mellitus Family history of hypertension Family history of myocardial infarction Brother Family history of hypertension Family history of myocardial infarction Other Family history of COPD (chronic obstructive pulmonary disease) Social History Within the past year, how often did you have a drink containing alcohol: 2-3 times a week Smoking status: Current every day smoker Non-prescribed substance use: denies use Previous occupational history: retired Highest level of school completed/degree received: some college, no degree Are you now , , , , never or living with a partner: In a typical week, how many times do you talk on the telephone with family, friends, or neighbors: 3 or more times per week How often do you get together with friends or relatives: 3 or more times per week Little interest or pleasure in doing things: not at all Feeling down, depressed, or hopeless: not at all Feel stressed/tense/nervous/anxious/difficulty sleeping: not at all Do you think of yourself as: straight/heterosexual Gender Identity: female Exam Constitutional Vital Signs, click to edit/add: Last Vital Signs Temp 95.9 F L 03/05/25 23:22 Pulse 89 06/13/24 08:21 Resp 14 06/13/24 02:20 BP 145/76 H 06/13/24 08:21 Pulse Ox 100 06/13/24 04:31 O2 Del Method Nasal Cannula 06/12/24 21:17 O2 Flow Rate 3 06/12/24 21:17 Common normals: oriented x3 and alert General appearance: ill appearing and grossly edematous (From face to her toes) HENMT Mouth: lip normal Eye Common normals: PERRL, EOMs intact bilaterally and no scleral icterus Neck & C-Spine Common normals: supple Cardio Common normals: regular rate Rhythm: abnormal rhythm and other GI Common normals: non-tender Extremity Other: 3+ pitting edema to all four extremities. Extremities are cool to the touch. Neuro Common normals: oriented x3 and moves all extremities Sensorium/orientation: awake and alert Speech: speech normal Other: Generalized weakness Course Course Hospital Course: O2 2 L via NC Lasix 80 mg IVP Albumen 50 gm IVPB Vital Signs Vital signs: Vital Signs Temperature 91.6 F L 06/12/24 17:38 Pulse Rate 66 06/12/24 17:38 Respiratory Rate 22 H 06/12/24 17:38 Blood Pressure 155/90 H 06/12/24 17:38 Pulse Oximetry 96 06/12/24 17:38 Oxygen Delivery Method Room Air 06/12/24 17:38 Temperature 95.9 F L 06/12/24 23:22 Pulse Rate 89 06/13/24 08:21 Respiratory Rate 14 06/13/24 02:20 Blood Pressure 145/76 H 06/13/24 08:21 Pulse Oximetry 100 06/13/24 04:31 Oxygen Delivery Method Nasal Cannula 06/12/24 21:17 Oxygen Delivery Flow Rate 3 06/12/24 21:17 Medical Decision Making MDM Narrative Medical decision making narrative: BNP was >35,000, troponin 58.7, BUN 39, creatinine 3.36. On 04/28/24 her BUN was 64, creatinine 2.85. Rectal temperature was 91.6 upon arrival; the Edilberto hugger was utilized. The patient was given 80 mg Lasix IV per the ED attending recommendation. Chest x-ray was pending. Care was resumed to Dr. Anaya. See her dictation for further evaluation and treatment. Nephrology services are not available here at this facility. Medical Records Medical records reviewed: Yes I reviewed the patient's medical records Lab Data Lab results reviewed: Yes I reviewed the patient's lab results Labs: Lab Results 06/12/24 06/12/24 06/12/24 Range/Units 18:05 18:10 19:40 WBC 5.3 (4.0-11.0) 10^3/uL RBC 2.94 L (4.20-5.40) 10^6/uL Hgb 9.5 L (12.0-16.0) g/dL Hct 30.2 L (36.0-48.0) % MCV 102.7 H (81.0-99.0) fL MCH 32.3 (26.7-34.0) pg MCHC 31.5 (29.9-35.2) g/dL RDW 15.4 H (11.0-15.0) % Plt Count 188 (150-450) 10^3/uL MPV 9.3 L (9.5-13.5) fL Neut % (Auto) 77.8 H (43.0-75.0) % Lymph % (Auto) 13.7 L (20.5-60.0) % [place] % (Auto) 7.0 (1.7-12.0) % Eos % (Auto) 0.2 L (0.9-7.0) % Baso % (Auto) 0.2 (0.2-2.0) % Neut # (Auto) 4.1 (1.4-6.5) 10^3/uL Lymph # (Auto) 0.7 L (1.2-3.8) 10^3/uL [place] # (Auto) 0.4 (0.3-0.8) 10^3/uL Eos # (Auto) 0.0 (0.0-0.7) 10^3/uL Baso # (Auto) 0.0 (0.0-0.1) 10^3/uL Abs Immat Gran (auto) 0.06 H (0.00-0.03) 10^3/uL Imm/Tot Granulo (auto) 1.1 H (0.0-0.5) % PT 13.3 H (9.0-11.6) sec INR 1.29 Sodium 128 L (136-145) mmol/L Potassium 4.8 (3.5-5.1) mmol/L Chloride 96 L (98-107) mmol/L Carbon Dioxide 18.4 L (21.0-32.0) mmol/L Anion Gap 18.4 BUN 39.0 H (7.0-18.0) mg/dL Creatinine 3.36 H (0.55-1.02) mg/dL Est GFR ( Amer) 17 L (>=60 mL/min/1.73m^2) Est GFR (Non-Af Amer) 14 L (>=60 mL/min/1.73m^2) BUN/Creatinine Ratio 11.6 Glucose 68 L (74-106) mg/dL Lactate 2.4 H* (0.4-2.0) mmol/L Calcium 8.2 L (8.5-10.1) mg/dL Total Bilirubin 0.6 (0.2-1.0) mg/dL AST 20 (15-37) U/L ALT 11 L (14-59) U/L Alkaline Phosphatase 170 H (46-116) U/L Troponin I High Sens 58.7 H* (4.0-51.3) pg/mL NT-Pro-B Natriuret Pep >47084.0 H* (<=900.0) pg/mL Total Protein 6.9 (6.4-8.2) g/dL Albumin 2.7 L (3.4-5.0) g/dL Globulin 4.2 g/dL Albumin/Globulin Ratio 0.6 Urine Color Yellow (YELLOW) Urine Clarity Sl cloudy (CLEAR) Urine pH 5.5 (5.0-9.0) Ur Specific [place] 1.025 (1.005-1.025) Urine Protein >=300 A (NEG/TRACE) mg/dL Urine Glucose (UA) Negative (NEGATIVE) mg/dL Urine Ketones Negative (NEGATIVE) mg/dL Urine Occult Blood Trace-i (NEGATIVE) Urine Nitrite Negative (NEGATIVE) Urine Bilirubin Negative (NEGATIVE) Urine Urobilinogen 0.2 (0.2-1.0) EU/dL Ur Leukocyte Esterase Negative (NEGATIVE) Urine RBC 0-2 (0-2) #/HPF Urine WBC 2-5 A (NONE SEEN) #/HPF Ur Squamous Epith Cells Few A (NONE/RARE) #/LPF Urine Crystals None seen (None Seen) #/HPF Urine Bacteria Moderate A (NONE SEEN) #/HPF Urine Casts None seen (NONE SEEN) #/LPF Urine Mucus None seen (NONE SEEN) Ethanol Quant 33 mg/dL ECG Data Attestation: ?I have reviewed the pertinent ECG results. (EKG was reviewed by the attending physician. It showed a-fib at a rate of 73. No STEMI.) Interpretation: Measurements Intervals [place] Rate: 73 P: -[id number] MO: -66391 QRS: 95 QRSD: 84 T: 50 QT: 454 QTc: 480 Interpretive Statements 1210 Atrial fibrillation 3113 Cannot rule out anterior myocardial infarction, probably old 710 Moderate right axis deviation 8100 Low QRS voltage 9150 abnormal ECG No previous ECG available for comparison Discharge Plan Discharge Chief Complaint: Weakness Clinical Impression: CHF exacerbation, Hypothermia, Acute renal failure superimposed on chronic kidney disease, Hypoxia Patient Disposition: Admitted As Inpatient Time of Disposition Decision: 09:00 Documented by User: Kathy Novak DO 06/13/24 03:18 HPI HPI - General Adult General Chief complaint: Weakness Stated complaint: WEAKNESS Time Seen by Provider: 06/12/24 17:33 Related Data Home Medications ?Medication ?Instructions ?Recorded ?Confirmed cholecalciferol (vitamin D3) 125 5,000 unit PO DAILY PRN supplement 02/13/23 06/12/24 mcg (5,000 unit) capsule levothyroxine 100 mcg tablet 100 mcg PO DAILY 02/13/23 06/12/24 thiamine mononitrate (vit B1) 100 100 mg PO DAILY 02/13/23 06/12/24 mg tablet magnesium oxide 400 mg (241.3 mg 400 mg PO BID 04/22/24 06/12/24 magnesium) tablet Previous Rx's ?Medication ?Instructions ?Recorded geeta #1 ea 11/10/23 apixaban 2.5 mg tablet (Eliquis) 2.5 mg PO BID #60 tabs 04/28/24 bumetanide 1 mg tablet 1 mg PO DAILY #30 tabs 04/28/24 ferrous sulfate 325 mg (65 mg 325 mg PO BID #60 tabs 04/28/24 iron) tablet isosorbide mononitrate 30 mg 30 mg PO QAM #30 tabs 04/28/24 tablet,extended release 24 hr losartan 25 mg tablet 25 mg PO QD #30 tabs 04/28/24 metoprolol tartrate 50 mg tablet 75 mg (1.5 x 50 mg) PO BID #60 tabs 04/28/24 pantoprazole 40 mg tablet,delayed 40 mg PO DAILY #30 tabs 04/28/24 release (Protonix) potassium chloride 10 mEq 10 meq PO BID #60 tabs 04/28/24 tablet,extended release Allergies Allergy/AdvReac Type Severity Reaction Status Date / Time cephalexin (From Keflex) Allergy swelling Verified 02/19/24 14:43 prednisone Allergy swelling Verified 02/19/24 14:43 Opioid HPI Opioid Management Most Recent Opioid Data: Last Pain Scale 5 06/12/24 17:58 06/12/24 Last Pain Intensity 6 04/27/24 10:24 04/27/24 Last ED Pain Assessment 06/12/24 17:58 Last ORT Total Score 0 04/22/24 01:18 04/22/24 Last ORT Risk Category Low Risk 04/22/24 01:18 04/22/24 Ur Phencyclidine Scrn Negative (NEGATIVE) 02/13/23 05:25 110 09/30 PFSH PFSH Medical History Paroxysmal atrial fibrillation ?I48.0 - Paroxysmal atrial fibrillation (ICD-10) Chronic kidney disease, stage 4 (severe) ?N18.4 - Chronic kidney disease, stage 4 (severe) (ICD-10) Acute on chronic heart failure with preserved ejection fraction (HFpEF) ?I50.33 - Acute on chronic diastolic (congestive) heart failure (ICD-10) Ulcer of right heel ?L97.419 - Non-pressure chronic ulcer of right heel and midfoot with unspecified severity (ICD-10) Hepatorenal syndrome ?K76.7 - Hepatorenal syndrome (ICD-10) Pulmonary hypertension ?I27.20 - Pulmonary hypertension, unspecified (ICD-10) Valvular heart disease ?I38 - Endocarditis, valve unspecified (ICD-10) Fluid overload ?E87.70 - Fluid overload, unspecified (ICD-10) Hypothyroidism ?E03.9 - Hypothyroidism, unspecified (ICD-10) Hypomagnesemia ?E83.42 - Hypomagnesemia (ICD-10) Hypoalbuminemia due to protein-calorie malnutrition ?E88.09 - Other disorders of plasma-protein metabolism, not elsewhere classified (ICD-10) ?E46 - Unspecified protein-calorie malnutrition (ICD-10) Hypertension ?I10 - Essential (primary) hypertension (ICD-10) Atrial fibrillation ?I48.91 - Unspecified atrial fibrillation (ICD-10) Chronic renal disease ?N18.9 - Chronic kidney disease, unspecified (ICD-10) Hypokalemia ?E87.6 - Hypokalemia (ICD-10) Hypocalcemia ?E83.51 - Hypocalcemia (ICD-10) Accidental fall ?W19.XXXA - Unspecified fall, initial encounter (ICD-10) Fracture of nasal bone ?S02.2XXA - Fracture of nasal bones, initial encounter for closed fracture (ICD-10) Hyponatremia ?E87.1 - Hypo-osmolality and hyponatremia (ICD-10) Hyperammonemia ?E72.20 - Disorder of urea cycle metabolism, unspecified (ICD-10) Hepatic encephalopathy ?K76.82 - Hepatic encephalopathy (ICD-10) Tobacco abuse ?Z72.0 - Tobacco use (ICD-10) Frequent falls ?R29.6 - Repeated falls (ICD-10) Lactic acidosis ?E87.20 - Acidosis, unspecified (ICD-10) Acute on chronic heart failure ?I50.9 - Heart failure, unspecified (ICD-10) Congestive heart failure ?I50.9 - Heart failure, unspecified (ICD-10) GERD (gastroesophageal reflux disease) ?K21.9 - Gastro-esophageal reflux disease without esophagitis (ICD-10) Stomach ulcer ?K25.9 - Gastric ulcer, unspecified as acute or chronic, without hemorrhage or perforation (ICD-10) Sigmoid diverticulosis ?K57.30 - Diverticulosis of large intestine without perforation or abscess without bleeding (ICD-10) Caries involving multiple surfaces of tooth ?K02.9 - Dental caries, unspecified (ICD-10) Renal cyst, acquired, left ?N28.1 - Cyst of kidney, acquired (ICD-10) Anxiety and depression ?F41.9 - Anxiety disorder, unspecified (ICD-10) ?F32.A - Depression, unspecified (ICD-10) Atrial fibrillation ?I48.91 - Unspecified atrial fibrillation (ICD-10) Smoker ?F17.200 - Nicotine dependence, unspecified, uncomplicated (ICD-10) Kidney failure ?N19 - Unspecified kidney failure (ICD-10) Alcohol abuse ?F10.10 - Alcohol abuse, uncomplicated (ICD-10) Surgical History History of endometrial ablation ?Z98.890 - Other specified postprocedural states (ICD-10) H/O section ?Z98.891 - History of uterine scar from previous surgery (ICD-10) Status post breast biopsy ?Z98.890 - Other specified postprocedural states (ICD-10) History of lumpectomy of both breasts ?Z98.890 - Other specified postprocedural states (ICD-10) S/P ablation of atrial fibrillation ?Z98.890 - Other specified postprocedural states (ICD-10) ?Z86.79 - Personal history of other diseases of the circulatory system (ICD- 10) Family History Father Family history of CHF (congestive heart failure) Family history of diabetes mellitus Family history of hypertension Family history of myocardial infarction Mother Family history of cancer Family history of diabetes mellitus Family history of hypertension Family history of myocardial infarction Brother Family history of hypertension Family history of myocardial infarction Other Family history of COPD (chronic obstructive pulmonary disease) Social History Within the past year, how often did you have a drink containing alcohol: 2-3 times a week Smoking status: Current every day smoker Non-prescribed substance use: denies use Previous occupational history: retired Highest level of school completed/degree received: some college, no degree Are you now , , , , never or living with a partner: In a typical week, how many times do you talk on the telephone with family, friends, or neighbors: 3 or more times per week How often do you get together with friends or relatives: 3 or more times per week Little interest or pleasure in doing things: not at all Feeling down, depressed, or hopeless: not at all Feel stressed/tense/nervous/anxious/difficulty sleeping: not at all Do you think of yourself as: straight/heterosexual Gender Identity: female Exam Narrative Exam Narrative: Héctor Contribution: Prior to examining the patient, I have washed with hospital approved and provided Antiseptic Hand Public Health Technologist and have also applied gloves.? Prior to touching the patient, I asked for consent to examine the patient.? General: Alert and oriented, well nourished, moderate distress, morbid obesity Eye: PERRL, EOMI, normal conjunctiva. eczema around eyes, drid skin, HENT: Normocephalic, normal hearing, moist oral mucosa, no scleral icterus, no sinus tenderness. Neck: Supple, non-tender, no carotid bruits, no JVD, no lymphadenopathy. Short neck Lungs: Clear to auscultation and percussion, non-labored respiration. O2 3L NC, the patient can speak in full sentences. Diminished breath sounds in the bases and rales appreciated. Heart: Normal rate, irregular rhythm, no murmur, or gallop. +4 Pitting edema everywhere. Abdomen: Soft, obese, non-tender, non-distended, normal bowel sounds, no masses. Musculoskeletal: Generalized edema and leaking clear serous fluid from the skin. there is evidence of chronic venous stasis changes in the lower extremities. Decreased ROM. Skin: Skin is warm, dry and pink, no rashes.Generalized edema and leaking clear serous fluid from the skin. there is evidence of chronic venous stasis changes in the lower extremities. The patient has a 2 cm scab over the right posterior achilles area. No [place] sign. The skin is scabbed and there is no evidence of necrotic tissue. Neurologic: Awake, alert, and oriented X3, CN II-XII intact. Psychiatric: Cooperative, appropriate mood and affect.?No evidence of alcohol withdrawal. Following the conclusion of the examination, I have washed my hands thoroughly after removing examination gloves. Constitutional Vital Signs, click to edit/add: Last Vital Signs Temp 95.9 F L 06/12/24 23:22 Pulse 89 06/13/24 08:21 Resp 14 06/13/24 02:20 BP 145/76 H 06/13/24 08:21 Pulse Ox 100 06/13/24 04:31 O2 Del Method Nasal Cannula 06/12/24 21:17 O2 Flow Rate 3 06/12/24 21:17 Documenting provider has reviewed patient's vital signs: yes (Dr. Anaya Reviewed) Course Course Hospital Course: O2 2 L via NC Lasix 80 mg IVP Albumen 50 gm IVPB Reevaluation(s) Reevaluation #1: Called [facility] and the patient exceeds the capabilities of [facility]. Recommended [facility]. On a waitlist at [facility], but no beds and expected > 24 hold. He said if decompensated to call back and see if we can get a nephrology consultation. Time: 10:46 Reevaluation #2: [facility] and any facility that is available that has beds has no nephrology, therefore not placed on a waiting list. Time: 02:35 Reevaluation #3: Waitlisted at [facility], all facilities. 03:16 Discussed with Shubham Reyes NP at [place] ([facility]). Accepted on behalf of Dr. Salcido. Will get nephrology consult. Time: 02:21 Vital Signs Vital signs: Vital Signs Temperature 91.6 F L 06/12/24 17:38 Pulse Rate 66 06/12/24 17:38 Respiratory Rate 22 H 06/12/24 17:38 Blood Pressure 155/90 H 06/12/24 17:38 Pulse Oximetry 96 06/12/24 17:38 Oxygen Delivery Method Room Air 06/12/24 17:38 Temperature 95.9 F L 06/12/24 23:22 Pulse Rate 89 06/13/24 08:21 Respiratory Rate 14 06/13/24 02:20 Blood Pressure 145/76 H 06/13/24 08:21 Pulse Oximetry 100 06/13/24 04:31 Oxygen Delivery Method Nasal Cannula 06/12/24 21:17 Oxygen Delivery Flow Rate 3 06/12/24 21:17 Medical Decision Making Differential Diagnosis Differential Diagnosis: Sepsis, SIRS, e-lyte abnormality, kidney disease, Lab Data Labs: Lab Results 03/05/25 03/05/25 03/05/25 Range/Units 18:05 18:10 19:40 WBC 5.3 (4.0-11.0) 10^3/uL RBC 2.94 L (4.20-5.40) 10^6/uL Hgb 9.5 L (12.0-16.0) g/dL Hct 30.2 L (36.0-48.0) % MCV 102.7 H (81.0-99.0) fL MCH 32.3 (26.7-34.0) pg MCHC 31.5 (29.9-35.2) g/dL RDW 15.4 H (11.0-15.0) % Plt Count 188 (150-450) 10^3/uL MPV 9.3 L (9.5-13.5) fL Neut % (Auto) 77.8 H (43.0-75.0) % Lymph % (Auto) 13.7 L (20.5-60.0) % [place] % (Auto) 7.0 (1.7-12.0) % Eos % (Auto) 0.2 L (0.9-7.0) % Baso % (Auto) 0.2 (0.2-2.0) % Neut # (Auto) 4.1 (1.4-6.5) 10^3/uL Lymph # (Auto) 0.7 L (1.2-3.8) 10^3/uL [place] # (Auto) 0.4 (0.3-0.8) 10^3/uL Eos # (Auto) 0.0 (0.0-0.7) 10^3/uL Baso # (Auto) 0.0 (0.0-0.1) 10^3/uL Abs Immat Gran (auto) 0.06 H (0.00-0.03) 10^3/uL Imm/Tot Granulo (auto) 1.1 H (0.0-0.5) % PT 13.3 H (9.0-11.6) sec INR 1.29 Sodium 128 L (136-145) mmol/L Potassium 4.8 (3.5-5.1) mmol/L Chloride 96 L (98-107) mmol/L Carbon Dioxide 18.4 L (21.0-32.0) mmol/L Anion Gap 18.4 BUN 39.0 H (7.0-18.0) mg/dL Creatinine 3.36 H (0.55-1.02) mg/dL Est GFR ( Amer) 17 L (>=60 mL/min/1.73m^2) Est GFR (Non-Af Amer) 14 L (>=60 mL/min/1.73m^2) BUN/Creatinine Ratio 11.6 Glucose 68 L (74-106) mg/dL Lactate 2.4 H* (0.4-2.0) mmol/L Calcium 8.2 L (8.5-10.1) mg/dL Total Bilirubin 0.6 (0.2-1.0) mg/dL AST 20 (15-37) U/L ALT 11 L (14-59) U/L Alkaline Phosphatase 170 H (46-116) U/L Troponin I High Sens 58.7 H* (4.0-51.3) pg/mL NT-Pro-B Natriuret Pep >06303.0 H* (<=900.0) pg/mL Total Protein 6.9 (6.4-8.2) g/dL Albumin 2.7 L (3.4-5.0) g/dL Globulin 4.2 g/dL Albumin/Globulin Ratio 0.6 Urine Color Yellow (YELLOW) Urine Clarity Sl cloudy (CLEAR) Urine pH 5.5 (5.0-9.0) Ur Specific Beatty 1.025 (1.005-1.025) Urine Protein >=300 A (NEG/TRACE) mg/dL Urine Glucose (UA) Negative (NEGATIVE) mg/dL Urine Ketones Negative (NEGATIVE) mg/dL Urine Occult Blood Trace-i (NEGATIVE) Urine Nitrite Negative (NEGATIVE) Urine Bilirubin Negative (NEGATIVE) Urine Urobilinogen 0.2 (0.2-1.0) EU/dL Ur Leukocyte Esterase Negative (NEGATIVE) Urine RBC 0-2 (0-2) #/HPF Urine WBC 2-5 A (NONE SEEN) #/HPF Ur Squamous Epith Cells Few A (NONE/RARE) #/LPF Urine Crystals None seen (None Seen) #/HPF Urine Bacteria Moderate A (NONE SEEN) #/HPF Urine Casts None seen (NONE SEEN) #/LPF Urine Mucus None seen (NONE SEEN) Ethanol Quant 33 mg/dL Imaging Data Chest x-ray: Attestation: I have reviewed the pertinent imaging results. Discharge Plan Discharge Chief Complaint: Weakness Clinical Impression: CHF exacerbation, Hypothermia, Acute renal failure superimposed on chronic kidney disease, Hypoxia Patient Disposition: Admitted As Inpatient Time of Disposition Decision: 09:00 Procedures ED Procedure Instructions Procedures Procedures: I (Dr. Anaya) spent 85 minutes on this patient. She had no capabilities of getting a blood draw. She did have IV access. I did a femoral stick on the right side that was placed via ultrasound. I was aiming to place a central line. I am unable to use her neck because she cannot lay flat and gets anxious. I looked extensively in both inguinal areas with the ultrasound and I am unable to find a suitable vein. I placed one in her brachial vein right upper extremity that was US guided. Documented by User: Judy Nation MD 06/13/24 09:03 HPI HPI - General Adult General Chief complaint: Weakness Stated complaint: WEAKNESS Time Seen by Provider: 06/12/24 17:33 Related Data Home Medications ?Medication ?Instructions ?Recorded ?Confirmed cholecalciferol (vitamin D3) 125 5,000 unit PO DAILY PRN supplement 02/13/23 06/12/24 mcg (5,000 unit) capsule levothyroxine 100 mcg tablet 100 mcg PO DAILY 02/13/23 06/12/24 thiamine mononitrate (vit B1) 100 100 mg PO DAILY 02/13/23 06/12/24 mg tablet magnesium oxide 400 mg (241.3 mg 400 mg PO BID 04/22/24 06/12/24 magnesium) tablet Previous Rx's ?Medication ?Instructions ?Recorded geeta #1 ea 02/17/23 apixaban 2.5 mg tablet (Eliquis) 2.5 mg PO BID #60 tabs 04/28/24 bumetanide 1 mg tablet 1 mg PO DAILY #30 tabs 04/28/24 ferrous sulfate 325 mg (65 mg 325 mg PO BID #60 tabs 04/28/24 iron) tablet isosorbide mononitrate 30 mg 30 mg PO QAM #30 tabs 04/28/24 tablet,extended release 24 hr losartan 25 mg tablet 25 mg PO QD #30 tabs 04/28/24 metoprolol tartrate 50 mg tablet 75 mg (1.5 x 50 mg) PO BID #60 tabs 04/28/24 pantoprazole 40 mg tablet,delayed 40 mg PO DAILY #30 tabs 04/28/24 release (Protonix) potassium chloride 10 mEq 10 meq PO BID #60 tabs 04/28/24 tablet,extended release Allergies Allergy/AdvReac Type Severity Reaction Status Date / Time cephalexin (From [facility]) Allergy swelling Verified 02/19/24 14:43 prednisone Allergy swelling Verified 02/19/24 14:43 Opioid HPI Opioid Management Most Recent Opioid Data: Last Pain Scale 5 06/12/24 17:58 06/12/24 Last Pain Intensity 6 04/27/24 10:24 04/27/24 Last ED Pain Assessment 06/12/24 17:58 Last ORT Total Score 0 04/22/24 01:18 04/22/24 Last ORT Risk Category Low Risk 04/22/24 01:18 04/22/24 Ur Phencyclidine Scrn Negative (NEGATIVE) 02/13/23 05:25 1109/30 PFSH PFSH Medical History Paroxysmal atrial fibrillation ?I48.0 - Paroxysmal atrial fibrillation (ICD-10) Chronic kidney disease, stage 4 (severe) ?N18.4 - Chronic kidney disease, stage 4 (severe) (ICD-10) Acute on chronic heart failure with preserved ejection fraction (HFpEF) ?I50.33 - Acute on chronic diastolic (congestive) heart failure (ICD-10) Ulcer of right heel ?L97.419 - Non-pressure chronic ulcer of right heel and midfoot with unspecified severity (ICD-10) Hepatorenal syndrome ?K76.7 - Hepatorenal syndrome (ICD-10) Pulmonary hypertension ?I27.20 - Pulmonary hypertension, unspecified (ICD-10) Valvular heart disease ?I38 - Endocarditis, valve unspecified (ICD-10) Fluid overload ?E87.70 - Fluid overload, unspecified (ICD-10) Hypothyroidism ?E03.9 - Hypothyroidism, unspecified (ICD-10) Hypomagnesemia ?E83.42 - Hypomagnesemia (ICD-10) Hypoalbuminemia due to protein-calorie malnutrition ?E88.09 - Other disorders of plasma-protein metabolism, not elsewhere classified (ICD-10) ?E46 - Unspecified protein-calorie malnutrition (ICD-10) Hypertension ?I10 - Essential (primary) hypertension (ICD-10) Atrial fibrillation ?I48.91 - Unspecified atrial fibrillation (ICD-10) Chronic renal disease ?N18.9 - Chronic kidney disease, unspecified (ICD-10) Hypokalemia ?E87.6 - Hypokalemia (ICD-10) Hypocalcemia ?E83.51 - Hypocalcemia (ICD-10) Accidental fall ?W19.XXXA - Unspecified fall, initial encounter (ICD-10) Fracture of nasal bone ?S02.2XXA - Fracture of nasal bones, initial encounter for closed fracture (ICD-10) Hyponatremia ?E87.1 - Hypo-osmolality and hyponatremia (ICD-10) Hyperammonemia ?E72.20 - Disorder of urea cycle metabolism, unspecified (ICD-10) Hepatic encephalopathy ?K76.82 - Hepatic encephalopathy (ICD-10) Tobacco abuse ?Z72.0 - Tobacco use (ICD-10) Frequent falls ?R29.6 - Repeated falls (ICD-10) Lactic acidosis ?E87.20 - Acidosis, unspecified (ICD-10) Acute on chronic heart failure ?I50.9 - Heart failure, unspecified (ICD-10) Congestive heart failure ?I50.9 - Heart failure, unspecified (ICD-10) GERD (gastroesophageal reflux disease) ?K21.9 - Gastro-esophageal reflux disease without esophagitis (ICD-10) Stomach ulcer ?K25.9 - Gastric ulcer, unspecified as acute or chronic, without hemorrhage or perforation (ICD-10) Sigmoid diverticulosis ?K57.30 - Diverticulosis of large intestine without perforation or abscess without bleeding (ICD-10) Caries involving multiple surfaces of tooth ?K02.9 - Dental caries, unspecified (ICD-10) Renal cyst, acquired, left ?N28.1 - Cyst of kidney, acquired (ICD-10) Anxiety and depression ?F41.9 - Anxiety disorder, unspecified (ICD-10) ?F32.A - Depression, unspecified (ICD-10) Atrial fibrillation ?I48.91 - Unspecified atrial fibrillation (ICD-10) Smoker ?F17.200 - Nicotine dependence, unspecified, uncomplicated (ICD-10) Kidney failure ?N19 - Unspecified kidney failure (ICD-10) Alcohol abuse ?F10.10 - Alcohol abuse, uncomplicated (ICD-10) Surgical History History of endometrial ablation ?Z98.890 - Other specified postprocedural states (ICD-10) H/O section ?Z98.891 - History of uterine scar from previous surgery (ICD-10) Status post breast biopsy ?Z98.890 - Other specified postprocedural states (ICD-10) History of lumpectomy of both breasts ?Z98.890 - Other specified postprocedural states (ICD-10) S/P ablation of atrial fibrillation ?Z98.890 - Other specified postprocedural states (ICD-10) ?Z86.79 - Personal history of other diseases of the circulatory system (ICD- 10) Family History Father Family history of CHF (congestive heart failure) Family history of diabetes mellitus Family history of hypertension Family history of myocardial infarction Mother Family history of cancer Family history of diabetes mellitus Family history of hypertension Family history of myocardial infarction Brother Family history of hypertension Family history of myocardial infarction Other Family history of COPD (chronic obstructive pulmonary disease) Social History Within the past year, how often did you have a drink containing alcohol: 2-3 times a week Smoking status: Current every day smoker Non-prescribed substance use: denies use Previous occupational history: retired Highest level of school completed/degree received: some college, no degree Are you now , , , , never or living with a partner: In a typical week, how many times do you talk on the telephone with family, friends, or neighbors: 3 or more times per week How often do you get together with friends or relatives: 3 or more times per week Little interest or pleasure in doing things: not at all Feeling down, depressed, or hopeless: not at all Feel stressed/tense/nervous/anxious/difficulty sleeping: not at all Do you think of yourself as: straight/heterosexual Gender Identity: female Exam Constitutional Vital Signs, click to edit/add: Last Vital Signs Temp 95.9 F L 06/12/24 23:22 Pulse 89 06/13/24 08:21 Resp 14 06/13/24 02:20 BP 145/76 H 06/13/24 08:21 Pulse Ox 100 06/13/24 04:31 O2 Del Method Nasal Cannula 06/12/24 21:17 O2 Flow Rate 3 06/12/24 21:17 Course Course Hospital Course: O2 2 L via NC Lasix 80 mg IVP Albumen 50 gm IVPB Vital Signs Vital signs: Vital Signs Temperature 91.6 F L 06/12/24 17:38 Pulse Rate 66 06/12/24 17:38 Respiratory Rate 22 H 06/12/24 17:38 Blood Pressure 155/90 H 06/12/24 17:38 Pulse Oximetry 96 06/12/24 17:38 Oxygen Delivery Method Room Air 06/12/24 17:38 Temperature 95.9 F L 06/12/24 23:22 Pulse Rate 89 06/13/24 08:21 Respiratory Rate 14 06/13/24 02:20 Blood Pressure 145/76 H 06/13/24 08:21 Pulse Oximetry 100 06/13/24 04:31 Oxygen Delivery Method Nasal Cannula 06/12/24 21:17 Oxygen Delivery Flow Rate 3 06/12/24 21:17 Medical Decision Making MDM Narrative Medical decision making narrative: BNP was >35,000, troponin 58.7, BUN 39, creatinine 3.36. On 04/28/24 her BUN was 64, creatinine 2.85. Rectal temperature was 91.6 upon arrival; the Edilberto hugger was utilized. The patient was given 80 mg Lasix IV per the ED attending recommendation. Chest x-ray was pending. Care was resumed to Dr. Anaya. See her dictation for further evaluation and treatment. Nephrology services are not available here at this facility. Dr. Nation: The patient care was transferred to in at [address] Anaya The patient had a bedside evaluation with a ultrasound-guided IV access established in the right upper extremity there is 20-gauge and also another ultrasound guided IV access in the external jugular in the left side that is 18- gauge The patient evaluation of the bedside showed that she is fluid overloaded mostly secondary to CHF exacerbation and also malnutrition Right now the patient does not have any hyperkalemia and no indication for dialysis at the moment with the patient CHF exacerbation she will mostly need Lasix drip Patient case was discussed with and he agrees with the above mentioned plan . Lab Data Labs: Lab Results 06/12/24 06/12/24 06/12/24 Range/Units 18:05 18:10 19:40 WBC 5.3 (4.0-11.0) 10^3/uL RBC 2.94 L (4.20-5.40) 10^6/uL Hgb 9.5 L (12.0-16.0) g/dL Hct 30.2 L (36.0-48.0) % MCV 102.7 H (81.0-99.0) fL MCH 32.3 (26.7-34.0) pg MCHC 31.5 (29.9-35.2) g/dL RDW 15.4 H (11.0-15.0) % Plt Count 188 (150-450) 10^3/uL MPV 9.3 L (9.5-13.5) fL Neut % (Auto) 77.8 H (43.0-75.0) % Lymph % (Auto) 13.7 L (20.5-60.0) % Stoddard % (Auto) 7.0 (1.7-12.0) % Eos % (Auto) 0.2 L (0.9-7.0) % Baso % (Auto) 0.2 (0.2-2.0) % Neut # (Auto) 4.1 (1.4-6.5) 10^3/uL Lymph # (Auto) 0.7 L (1.2-3.8) 10^3/uL Stoddard # (Auto) 0.4 (0.3-0.8) 10^3/uL Eos # (Auto) 0.0 (0.0-0.7) 10^3/uL Baso # (Auto) 0.0 (0.0-0.1) 10^3/uL Abs Immat Gran (auto) 0.06 H (0.00-0.03) 10^3/uL Imm/Tot Granulo (auto) 1.1 H (0.0-0.5) % PT 13.3 H (9.0-11.6) sec INR 1.29 Sodium 128 L (136-145) mmol/L Potassium 4.8 (3.5-5.1) mmol/L Chloride 96 L (98-107) mmol/L Carbon Dioxide 18.4 L (21.0-32.0) mmol/L Anion Gap 18.4 BUN 39.0 H (7.0-18.0) mg/dL Creatinine 3.36 H (0.55-1.02) mg/dL Est GFR ( Amer) 17 L (>=60 mL/min/1.73m^2) Est GFR (Non-Af Amer) 14 L (>=60 mL/min/1.73m^2) BUN/Creatinine Ratio 11.6 Glucose 68 L (74-106) mg/dL Lactate 2.4 H* (0.4-2.0) mmol/L Calcium 8.2 L (8.5-10.1) mg/dL Total Bilirubin 0.6 (0.2-1.0) mg/dL AST 20 (15-37) U/L ALT 11 L (14-59) U/L Alkaline Phosphatase 170 H (46-116) U/L Troponin I High Sens 58.7 H* (4.0-51.3) pg/mL NT-Pro-B Natriuret Pep >99716.0 H* (<=900.0) pg/mL Total Protein 6.9 (6.4-8.2) g/dL Albumin 2.7 L (3.4-5.0) g/dL Globulin 4.2 g/dL Albumin/Globulin Ratio 0.6 Urine Color Yellow (YELLOW) Urine Clarity Sl cloudy (CLEAR) Urine pH 5.5 (5.0-9.0) Ur Specific Beatty 1.025 (1.005-1.025) Urine Protein >=300 A (NEG/TRACE) mg/dL Urine Glucose (UA) Negative (NEGATIVE) mg/dL Urine Ketones Negative (NEGATIVE) mg/dL Urine Occult Blood Trace-i (NEGATIVE) Urine Nitrite Negative (NEGATIVE) Urine Bilirubin Negative (NEGATIVE) Urine Urobilinogen 0.2 (0.2-1.0) EU/dL Ur Leukocyte Esterase Negative (NEGATIVE) Urine RBC 0-2 (0-2) #/HPF Urine WBC 2-5 A (NONE SEEN) #/HPF Ur Squamous Epith Cells Few A (NONE/RARE) #/LPF Urine Crystals None seen (None Seen) #/HPF Urine Bacteria Moderate A (NONE SEEN) #/HPF Urine Casts None seen (NONE SEEN) #/LPF Urine Mucus None seen (NONE SEEN) Ethanol Quant 33 mg/dL Discharge Plan Discharge Chief Complaint: Weakness Clinical Impression: CHF exacerbation, Hypothermia, Acute renal failure superimposed on chronic kidney disease, Hypoxia Patient Disposition: Admitted As Inpatient Time of Disposition Decision: 09:00
--- NOTE | 2024-06-12 18:20 | PC.NURSE ---
pt to ED via EMS with c/o weakness. pt states she did not want to come but her boyfriend made her. EMS reports pt sitting in her chair for a long time . pt had saturated brief and various stool ch down b/l legs. pt has 4+ edema on all 4 extremities and is cool to the touch. pt is drowsy but arousable and answers questions appropriately. pt changed into gown and applied to full satellite project site monitor. chucks pad placed underneath pt and urine sample was obtained using female mini cath. pt tolerated as expected. Edilberto hugger applied to pt and multiple warm blankets also applied on top of edilberto hugger. pt denies further needs at this time. pt states not eating or drinking today d/t being weak and not wanting to get out of her chair. pt expresses extensive PMH.
[2024-06-12 18:27] LABS: Basophils Percent Auto 0.2 % (0.2-2.0); Eosinophils Percent Auto 0.2 % (0.9-7.0); Hematocrit 30.2 % (36.0-48.0); Hemoglobin 9.5 g/dL (12.0-16.0); Immature Granulocytes Abs Auto 0.06 10^3/uL (0.00-0.03); Immature Granulocytes Pct Auto 1.1 % (0.0-0.5); Lymphocytes Absolute Auto 0.7 10^3/uL (1.2-3.8); Lymphocytes Percent Auto 13.7 % (20.5-60.0); Mean Corpuscular HGB Conc 31.5 g/dL (29.9-35.2); Mean Corpuscular Hemoglobin 32.3 pg (26.7-34.0); Mean Corpuscular Volume 102.7 fL (81.0-99.0); Mean Platelet Volume 9.3 fL (9.5-13.5); Monocytes Absolute Auto 0.4 10^3/uL (0.3-0.8); Neutrophils Absolute Auto 4.1 10^3/uL (1.4-6.5); Neutrophils Percent Auto 77.8 % (43.0-75.0); Platelet Count 188 10^3/uL (150-450); Red Blood Count 2.94 10^6/uL (4.20-5.40); Red Cell Distribution Width 15.4 % (11.0-15.0); White Blood Count 5.3 10^3/uL (4.0-11.0)
[2024-06-12 20:05] LABS: Bilirubin Urine NEGATIVE (NEGATIVE); Blood Urine TRACE-I (NEGATIVE); Clarity Urine SL CLOUDY (CLEAR); Color Urine YELLOW (YELLOW); Glucose Urine UA NEGATIVE (NEGATIVE); Ketones Urine NEGATIVE (NEGATIVE); Leukocyte Esterase Urine NEGATIVE (NEGATIVE); Nitrite Urine NEGATIVE (NEGATIVE); Protein Urine >=300 mg/dL (NEG/TRACE); Specific Gravity Urine 1.025 (1.005-1.025); Urobilinogen Urine 0.2 EU/dL (0.2-1.0); pH Urine 5.5 (5.0-9.0)
[2024-06-12 20:07] LABS: Urine Microscopic Indicated YES
[2024-06-12 20:07] LABS: INR 1.29; Prothrombin Time 13.3 sec (9.0-11.6)
--- NOTE | 2024-06-12 20:09 | PC.NURSE ---
MD in to evaluate for femoral line placement.
[2024-06-12] MEDS: ONDANSETRON PF 4 MG/2 ML VIAL IV (20:11)
[2024-06-12 20:16] LABS: Lactate/Lactic Acid 2.4 mmol/L (0.4-2.0)
[2024-06-12 20:20] LABS: Alanine Aminotransferase 11 U/L (14-59); Albumin Globulin Ratio 0.6; Albumin Level 2.7 g/dL (3.4-5.0); Alkaline Phosphatase 170 U/L (46-116); Anion Gap 18.4; Aspartate Amino Transferase 20 U/L (15-37); BUN Creatinine Ratio 11.6; Bilirubin Total 0.6 mg/dL (0.2-1.0); Calcium 8.2 mg/dL (8.5-10.1); Carbon Dioxide 18.4 mmol/L (21.0-32.0); Chloride 96 mmol/L (98-107); Estimated GFR (African America 17 (>=60 mL/min/1.73m^2); Estimated GFR (Non-African Ame 14 (>=60 mL/min/1.73m^2); Ethanol 33 mg/dL; Globulin 4.2 g/dL; Glucose 68 mg/dL (74-106); Potassium 4.8 mmol/L (3.5-5.1); Sodium 128 mmol/L (136-145); Total Protein 6.9 g/dL (6.4-8.2)
[2024-06-12 20:25] LABS: Troponin I High Sensitivity 58.7 pg/mL (4.0-51.3)
[2024-06-12 20:26] LABS: NT Pro B Type Natriuretic Pept >35000.0 pg/mL (<=900.0)
--- NOTE | 2024-06-12 20:29 | PC.NURSE ---
in room with US to attempt IV placement.
[2024-06-12 20:35] LABS: Bacteria Urine MODERATE #/HPF (NONE SEEN); Cast Seen? NONE SEEN #/LPF (NONE SEEN); Crystals Seen? None Seen #/HPF (None Seen); Mucus Urine NONE SEEN (NONE SEEN); RBC Urine 0-2 #/HPF (0-2); Squamous Epithelial Cell Urine FEW #/LPF (NONE/RARE)
[2024-06-12] MEDS: FUROSEMIDE 40 MG/4 ML VIAL 80 MG IVP (21:10)
--- NOTE | 2024-06-12 21:20 | PC.NURSE ---
Edilberto holguin continued. Mild hypothermia noted.
--- NOTE | 2024-06-12 23:13 | PC.NURSE ---
Irrigated and checked Rios for placement. Most of the sterile NS irrigant came back. 120 in 80 back. Cath replaced. Checked placement via bladder scan. There is only 50 ml in bladder at this time.
[2024-06-13] VITALS (140 sets, daily range): BP systolic 90–200; BP diastolic 54–141; PULSE 68–113; RESP 12–16; TEMP 33.9–35.4; O2SAT 81–100; BMI 34.6
[2024-06-13] MEDS: ALBUMIN HUMAN 25 GM/100 ML PREMIX IV ×2 (00:57)
--- NOTE | 2024-06-13 01:14 | PC.NURSE ---
Pt is not diuresing well. 100 ml out thus far. aware. NNO received.
--- NOTE | 2024-06-13 02:02 | PC.NURSE ---
Pt changed over to hospital bed for comfort as we continue to await disposition. Gown and linens again changed due to anasarca.
--- NOTE | 2024-06-13 03:47 | PC.NURSE ---
Due to very poor venous access secondary to anasarca, staff unable to draw repeat trop and lactic acid. MD and lab staff aware.
--- NOTE | 2024-06-13 04:25 | PC.NURSE ---
Pt remains in A fib with a controlled ventricular rate in the 70's to 90's. Occasional PVC noted.
--- NOTE | 2024-06-13 06:46 | PC.NURSE ---
Pt has been re-attached to the SPO2 monitor, BP cuff, and O2 several times. She removes them in her sleep.
--- NOTE | 2024-06-13 09:50 | CA_ITS ---
Patient Name: ORESTES ALVARES MR#: [id number] : 1965 Exam Date: 06/13/2024 Ordering Doctor: DR Fco Saavedra . ECHOCARDIOGRAM REPORT PROCEDURE: CA ECHO LIMITED INDICATIONS: Dyspnea, elevated BNP (>64865), heart failure with preserved ejection fraction, chronic kidney disease, COPD COMPARISON: None. DESCRIPTION: Limited ECHOCARDIOGRAM Real-time transthoracic echocardiography with 2D and M-mode performed. QUALITY: Technical quality was adequate. Limited echocardiogram per physician order. LEFT VENTRICLE: Normal chamber size. Mild concentric left ventricular hypertrophy. Systolic function is normal. LV EF: Normal left ventricular ejection fraction, (55%). DIASTOLIC: ATRIAL SEPTUM: LEFT ATRIUM: Mild dilatation. RIGHT ATRIUM: Severe dilatation. RIGHT VENTRICLE: Severe dilatation. Mildly reduced systolic function. TRICUSPID VALVE: Normal mobility and thickness. MITRAL VALVE: Normal mobility and thickness. AORTIC VALVE: Normal trileaflet appearance. No visible sclerosis. Normal leaflet mobility. AORTIC ROOT: Normal diameter and appearance. Ascending aorta is normal in size. PULMONIC VALVE: Normal thickness and mobility. PERICARDIUM: No evidence of pericardial effusion. IVC: IVC is dilated (2.8 cm), does not collapse. PLEURA: CONCLUSION: 1. Microcytic ventricular hypertrophy with normal systolic function. LVEF is 55%. 2. Severely dilated right ventricle with mildly reduced systolic function. 3. Severe right atrial dilatation. 4. Dilated inferior vena cava without inspiratory collapse. 5. Limited study performed with no Doppler interrogation as requested. Adult Echocardiography Procedure Report Left Ventricle LVEDD (3.7 - 5.6 cm): 4.03 cm LVESD (2.2 - 4.0 cm): 2.09 cm LVIVS thickness (0.6 - 1.2 cm): 0.92 cm LVPW thickness (0.5 - 1.0 cm): 1.24 cm LVOT Diameter 1.83 cm Left Atrium Left Atrium Systolic Dimension: 5.03 cm Mitral Valve Right Ventricle Aorta AO Root Diam: 2.41 cm Ascending Ao Diam: 2.53 cm Aortic Valve Tricuspid Valve Pulmonic Valve Right Atrium Right Atrium Systolic Pressure: 122.30 ml, 122.30 ml Dictated by: Ok Villanueva M.D. on 06/13/2024 at 15:15 Approved by: Ok Villanueva M.D. on 06/13/2024 at 15:18
--- NOTE | 2024-06-13 09:56 | P.HP_ITS ---
HPI H&P: HPI History of Present Illness Chief complaint: WEAKNESS CHF EXACB DASHAWN ON CHRONIC KIDNEY DISEASE Narrative: Patient presented emergency room with increasing weakness, unable to ambulate over the last couple of days per family, shortness of breath, in ER found to have acute combined congestive heart failure with severe sepsis Opioid HPI Opioid Management Most Recent Pain and Opioid Data: Last Pain Scale 5 06/12/24 17:58 06/12/24 Last Pain Intensity 6 04/27/24 10:24 04/27/24 Last ED Pain Assessment 06/12/24 17:58 Last ORT Total Score 4 06/13/24 10:21 06/13/24 Last ORT Risk Category Moderate Risk 06/13/24 10:21 06/13/24 Ur Phencyclidine Scrn Negative (NEGATIVE) 02/13/23 05: 1109/30 Review of Systems ROS Status of ROS 10 or more systems reviewed and unremark able except as noted in history and below PFSH PFSH Medical History Paroxysmal atrial fibrillation ?I48.0 - Paroxysmal atrial fibrillation (ICD-10) Chronic kidney disease, stage 4 (severe) ?N18.4 - Chronic kidney disease, stage 4 (severe) (ICD-10) Acute on chronic heart failure with preserved ejection fraction (HFpEF) ?I50.33 - Acute on chronic diastolic (congestive) heart failure (ICD-10) Ulcer of right heel ?L97.419 - Non-pressure chronic ulcer of right heel and midfoot with unspecified severity (ICD-10) Hepatorenal syndrome ?K76.7 - Hepatorenal syndrome (ICD-10) Pulmonary hypertension ?I27.20 - Pulmonary hypertension, unspecified (ICD-10) Valvular heart disease ?I38 - Endocarditis, valve unspecified (ICD-10) Fluid overload ?E87.70 - Fluid overload, unspecified (ICD-10) Hypothyroidism ?E03.9 - Hypothyroidism, unspecified (ICD-10) Hypomagnesemia ?E83.42 - Hypomagnesemia (ICD-10) Hypoalbuminemia due to protein-calorie malnutrition ?E88.09 - Other disorders of plasma-protein metabolism, not elsewhere classified (ICD-10) ?E46 - Unspecified protein-calorie malnutrition (ICD-10) Hypertension ?I10 - Essential (primary) hypertension (ICD-10) Atrial fibrillation ?I48.91 - Unspecified atrial fibrillation (ICD-10) Chronic renal disease ?N18.9 - Chronic kidney disease, unspecified (ICD-10) Hypokalemia ?E87.6 - Hypokalemia (ICD-10) Hypocalcemia ?E83.51 - Hypocalcemia (ICD-10) Accidental fall ?W19.XXXA - Unspecified fall, initial encounter (ICD-10) Fracture of nasal bone ?S02.2XXA - Fracture of nasal bones, initial encounter for closed fracture (ICD-10) Hyponatremia ?E87.1 - Hypo-osmolality and hyponatremia (ICD-10) Hyperammonemia ?E72.20 - Disorder of urea cycle metabolism, unspecified (ICD-10) Hepatic encephalopathy ?K76.82 - Hepatic encephalopathy (ICD-10) Tobacco abuse ?Z72.0 - Tobacco use (ICD-10) Frequent falls ?R29.6 - Repeated falls (ICD-10) Lactic acidosis ?E87.20 - Acidosis, unspecified (ICD-10) Acute on chronic heart failure ?I50.9 - Heart failure, unspecified (ICD-10) Congestive heart failure ?I50.9 - Heart failure, unspecified (ICD-10) GERD (gastroesophageal reflux disease) ?K21.9 - Gastro-esophageal reflux disease without esophagitis (ICD-10) Stomach ulcer ?K25.9 - Gastric ulcer, unspecified as acute or chronic, without hemorrhage or perforation (ICD-10) Sigmoid diverticulosis ?K57.30 - Diverticulosis of large intestine without perforation or abscess without bleeding (ICD-10) Caries involving multiple surfaces of tooth ?K02.9 - Dental caries, unspecified (ICD-10) Renal cyst, acquired, left ?N28.1 - Cyst of kidney, acquired (ICD-10) Anxiety and depression ?F41.9 - Anxiety disorder, unspecified (ICD-10) ?F32.A - Depression, unspecified (ICD-10) Atrial fibrillation ?I48.91 - Unspecified atrial fibrillation (ICD-10) Smoker ?F17.200 - Nicotine dependence, unspecified, uncomplicated (ICD-10) Kidney failure ?N19 - Unspecified kidney failure (ICD-10) Alcohol abuse ?F10.10 - Alcohol abuse, uncomplicated (ICD-10) Surgical History History of endometrial ablation ?Z98.890 - Other specified postprocedural states (ICD-10) H/O section ?Z98.891 - History of uterine scar from previous surgery (ICD-10) Status post breast biopsy ?Z98.890 - Other specified postprocedural states (ICD-10) History of lumpectomy of both breasts ?Z98.890 - Other specified postprocedural states (ICD-10) S/P ablation of atrial fibrillation ?Z98.890 - Other specified postprocedural states (ICD-10) ?Z86.79 - Personal history of other diseases of the circulatory system (ICD- 10) Family History Father Family history of CHF (congestive heart failure) Family history of diabetes mellitus Family history of hypertension Family history of myocardial infarction Mother Family history of cancer Family history of diabetes mellitus Family history of hypertension Family history of myocardial infarction Brother Family history of hypertension Family history of myocardial infarction Other Family history of COPD (chronic obstructive pulmonary disease) Social History Within the past year, how often did you have a drink containing alcohol: 2-3 times a week Smoking status: Current every day smoker Non-prescribed substance use: denies use Previous occupational history: retired Highest level of school completed/degree received: some college, no degree Are you now , , , , never or living with a partner: In a typical week, how many times do you talk on the telephone with family, friends, or neighbors: 3 or more times per week How often do you get together with friends or relatives: 3 or more times per week Little interest or pleasure in doing things: not at all Feeling down, depressed, or hopeless: not at all Feel stressed/tense/nervous/anxious/difficulty sleeping: not at all Do you think of yourself as: straight/heterosexual Gender Identity: female Meds Home Medications and Allergies Home Medications ?Medication ?Instructions ?Recorded ?Confirmed ?Type cholecalciferol (vitamin D3) 125 5,000 unit PO DAILY PRN supplement 02/13/23 06/12/24 History mcg (5,000 unit) capsule levothyroxine 100 mcg tablet 100 mcg PO DAILY 02/13/23 06/12/24 History walker #1 ea 02/17/23 06/12/24 Rx bumetanide 1 mg tablet 1 mg PO DAILY #30 tabs 04/28/24 06/12/24 Rx isosorbide mononitrate 30 mg 30 mg PO QAM #30 tabs 04/28/24 06/12/24 Rx tablet,extended release 24 hr losartan 25 mg tablet 25 mg PO QD #30 tabs 04/28/24 06/12/24 Rx metoprolol tartrate 50 mg tablet 75 mg (1.5 x 50 mg) PO BID #60 tabs 04/28/24 06/12/24 Rx pantoprazole 40 mg tablet,delayed 40 mg PO DAILY #30 tabs 04/28/24 06/12/24 Rx release (Protonix) Allergies Allergy/AdvReac Type Severity Reaction Status Date / Time cephalexin (From Keflex) Allergy swelling Verified 02/19/24 14:43 prednisone Allergy swelling Verified 02/19/24 14:43 Exam Constitutional Vital Signs, click to edit/add: Last Vital Signs Temp 93.8 F L 06/13/24 09:05 Pulse 76 06/13/24 09:30 Resp 7 L 06/13/24 09:30 BP 124/95 H 06/13/24 09:01 Pulse Ox 100 06/13/24 09:01 O2 Del Method Nasal Cannula 06/12/24 21:17 O2 Flow Rate 3 06/12/24 21:17 Documenting provider has reviewed patient's vital signs: yes Common normals: apparent distress (Severe distress and obtunded) Chest Common normals: inspection of chest normal (Labored breathing) Respiratory Common normals: abnormal respiratory effort (Respiratory distress) Auscultation: rales, rhonchi and wheezes Cardio Common normals: regular rhythm Rate: tachycardic GI Common normals: soft to palpation; negative for Normal to inspection, nondistended, normoactive bowel sounds present (Morbidly obese) and tender (Diffusely tender) Extremity Common normals: abnormal to inspection (Erythema bilateral lower extremities with 3+ edema) Results Labs Labs: Short CBC 06/12/24 Range/Units 18:10 WBC 5.3 (4.0-11.0) 10^3/uL Hgb 9.5 L (12.0-16.0) g/dL Hct 30.2 L (36.0-48.0) % Plt Count 188 (150-450) 10^3/uL BMP 06/12/24 19:40 Sodium 128 L Potassium 4.8 Chloride 96 L Carbon Dioxide 18.4 L BUN 39.0 H Creatinine 3.36 H Glucose 68 L Calcium 8.2 L Liver Function 06/12/24 Range/Units 19:40 Total Bilirubin 0.6 (0.2-1.0) mg/dL AST 20 (15-37) U/L ALT 11 L (14-59) U/L Alkaline Phosphatase 170 H (46-116) U/L Albumin 2.7 L (3.4-5.0) g/dL Urine 06/12/24 Range/Units 18:05 Urine Color Yellow (YELLOW) Urine Clarity Sl cloudy (CLEAR) Urine pH 5.5 (5.0-9.0) Ur Specific [place] 1.025 (1.005-1.025) Urine Protein >=300 A (NEG/TRACE) mg/dL Urine Glucose (UA) Negative (NEGATIVE) mg/dL Assessment and Plan Assessment and Plan (1) Hypoxia: (2) Acute renal failure superimposed on chronic kidney disease: (3) Hypothermia: (4) CHF exacerbation: (5) Paroxysmal atrial fibrillation: Plan Admission findings: Hypothermia, uncontrolled hypertension, acute hypoxia with O2 sat of 85%, lactic acidosis, white blood cell count normal but significant left shift consistent with bacterial process, acute kidney injury, elevated LFTs, uncertain infectious source at this time but has led to severe sepsis Severe sepsis without clear etiology-start patient on broad-spectrum antibiotics, check ultrasound of abdomen, consider CT scan Acute hypoxic respiratory failure requiring supplemental oxygen secondary to acute combined congestive heart failure-Bumex drip, repeat echocardiogram limited, serial troponins Acute kidney injury injury with a baseline creatinine of 1.84, admission creatinine of 3.36 which is 182.6% above baseline which resulted in stage II acute kidney injury Elevated liver function test likely secondary to passive congestion from the acute combined congestive heart failure-checking ultrasound Edema and erythema bilateral lower extremities, do ultrasound rule out DVT possible infectious source with cellulitis Hyponatremia secondary to the fluid overload-repeat testing Admission status: Patient admitted to the ICU with severe sepsis with hypothermia lactic acidosis tachycardia respiratory distress and acute hypoxia with acute kidney injury, medically necessary treatment will span 2 midnights. Inpatient status. Urinary Catheter Management Urinary Catheter Management Urethral: Cath placed during this visit: yes Urethral indwelling: Yes Reason for continuing: measure accurate output Insertion date: 06/12/24 Insertion time: 21:00
--- OUTSIDE RECORDS SUMMARY | 2024-06-13 10:17 | XMS_ITS | CCD ---
Author Organization [facility] CliniSyid Care Team Providers Care Travel Ot Name Role Phone PHYSICIAN, DEFAULT Unavailable Unavailable [...] Other Provider MD Lowell Trejo Other Provider [phone] MD Benedicto Santamaria Other Provider MD Lul Austin Jr Other Provider MD Jagruti Ugalde Other Provider MD Brad Gan Other Provider EVAN, DR UNIQUE Sher Consulting Unavailable ANNA, DR NEWELL Admitting Unavailable JENNY, DR PRETTY Primary Care Unavailable ANNA, DR NEWELL Attending Unavailable STEVEN, DR IZZY Sheridan Consulting Unavailabl e ANNA, DR NEWELL Consulting Unavailable ROSALINDA SAMLERON Consulting Unavailable CODY ALEXANDER Consulting Unavailable JUNO [...] Primary Care Unavailable Katie Velasquez Admitting Unavailable Unavailable Primary Care Provider Unavailabl e Allergies Allergy Classification Reported Allergen(s) Allergy Type Date of Onset Reaction(s) Facility (2 sources) cephalexin; Translations: [KEFLEX] Drug Allergy 4 AOF [facility] Repository (9 sources) predniSONE; Translations: [PREDNISONE] Drug Allergy 5 Swelling [facility] Repository (7 sources) Cephalexin; Translations: [cephalexin] Drug Allergy 2 Nausea, Unknown [facility] Medications Current Medications Medication Drug Class(es) Dates [...] 40 MG PO Daily at 0800 30 30 December 09, 2021 11:00pm September 28, [...] abuse; Translations: [Alcohol abuse, uncomplicated] Onset: 12-21-2021 2 Chronic Anxiety disorders (1 source) Anxiety disorder, [...] 12-10-2021 Episodic Other aftercare (1 source) Other senior living (current) drug therapy; Translations: [OTH LONG-TERM CURRENT DRUG THERAPY] Onset: 12-21-2021 Episodic Other [...] By: Maury Schafer on 02-22-2024 Pathology study [facility] Other Phone: Kael 02-19-2024 L ------ Specimen: [id number] Received: 02/20/24 Status: MARCELO Morelos Num: [id number] Spec Type: Surgical Subm Dr: Cody Neves MD Tissues: A BREAST CORE NO CALCS (LEFT BREAST) Procedures: HE/, Gross/Micro L4 Age/ Patient Sex Location Account Attending Physician Juanita Redman 59/F [facility] [id number] Katie Velasquez APRN, SPEC NUM: [id number] RECD: 02/20/24 STATUS: MARCELO MORELOS NUM: [id number] LYNDSEY: 02/19/[address] [facility] DR: Cody Neves MD ENTERED: 02/20/[address]: Kim,Lab Katie Velasquez APRN, GAS ADJUSTER SPEC TYPE: Surgical DEPT: JUANIS PERES ENTERED BY: [id number] RECV BY: [id number] ORDERED: HE, Gross/Micro L4 ORDERED: , Gross/Micro L4 Pathological [...] Fixation time: Time tissue removed from patient: 4 Time specimen placed in formalin: 1506 Specimen: [id number] Received: 02/20/24 Status: MARCELO Morelos Num: [id number] Spec Type: Surgical Subm Dr: Cody Neves MD Tissues: A BREAST CORE NO CALCS (LEFT BREAST) Procedures: HE/Caroline, Gross/Micro L4 Patient: Juanita Redman [id number] (Continued) Specimen: [id number] Received: 02/20/24 (Continued) Gross Description (Continued) Signed (signature on file) Maury Schafer MD 02/22/24 1036 Specimen: [id number] Received: 02/20/24 Status: MARCELO Morelos Num: [id number] Spec Type: Surgical Subm Dr: Cody Neves MD Tissues: A BREAST CORE NO CALCS (LEFT BREAST) Procedures: /, Lilibeth/Micro L4 Patient: Juanita Redman [id number] (Continued) Specimen: [id number] Received: 02/20/24 (Continued) Gross Description (Continued) Cold ischemic time: 2 minutes Total fixation time: 26 hours and 30 minutes (2, ns, [id number]) Batool Microscopic Description Microscopic examination is performed. CPT Codes 43762 Specimen: [id number] Received: 02/20/24 Status: MARCELO Morelos Num: [id number] Spec Type: Surgical Subm Dr: Cody Neves MD Tissues: A BREAST CORE NO CALCS (LEFT BREAST) Procedures: RAMYA/Caroline, Gross/John L4 Patient: Juanita Redman [id number] (Continued) Signed (signature on file) Maury Schafer MD 02/22/24 1036 Normal [facility] Activated partial thrombopla stin time (aPTT) in platelet poor plasma by coagulation aOrdered By: Caden Jarrell on 03-15-2022 aPTT Coag (PPP) [Time] 30.8 s 25.1-36.5 [facility] Basophils Auto (Bld) [#/Vol] Ordered By: Caden Jarrell on 03-15-2022 Basophils (Bld) [#/Vol] 0.1 10*3/uL 0.0-0.2 [facility] Basophils/100 WBC Auto (Bld) Ordered By: Caden Jarrell on 03-15-2022 Basophils/100 WBC (Bld) 0.9 % . [facility] Creatine kinase [Enzymatic a ctivity/volume] in Serum or PlasmaOrdered By: Caden Jarrell on 03-15-2022 CK [Catalytic activity/Vol] 33 U/L 22-269 [facility] Creatinine and Glomerular fi ltration rate.predicted panel (S/P/Bld)Ordered By: Caden Jarrell on 03-15-2022 Creatinine [Mass/Vol] 1.34 mg/dL 0.44-1.03 [facility] Eosinophils Auto (Bld) [#/Vo l]Ordered By: Caden Jarrell on 03-15-2022 Eosinophils (Bld) [#/Vol] 0.0 10*3/uL 0.0-0.45 [facility] Eosinophils/100 WBC Auto (Bl d)Ordered By: Caden Jarrell on 03-15-2022 Eosinophils/100 WBC (Bld) 0.2 % . [facility] Erythrocyte distribution wid th Auto (RBC) [Ratio]Ordered By: Caden Jarrell on 03-15-2022 Erythrocyte distribution width (RBC) [Ratio] 13.6 % 11.9-15.3 [facility] Estimated glomerular filtrat ion rate (GFR) non- AmericanOrdered By: Caden Jarrell on 03-15-2022 GFR/1.73 sq M.predicted among non-blacks MDRD (S/P/Bld) [Vol rate/Area] 40 mL/Min [facility] Hematocrit Auto (Bld) [Volum e fraction]Ordered By: Caden Jarrell on 03-15-2022 Hematocrit (Bld) [Volume fraction] 31.6 % 34.0-46.4 [facility] Hemoglobin [Mass/volume] in BloodOrdered By: Caden Jarrell on 03-15-2022 Hemoglobin (Bld) [Mass/Vol] 11.0 g/dL 11.8-15.4 [facility] Laboratory - Chemistry and C hemistry - challengeOrdered By: Caden Jarrell on 03-15-2022 Natriuretic peptide B (Bld) [Mass/Vol] 1767.0 pg/mL 5-100 [facility] Laboratory - CoagulationOrde red By: Caden Jarrell on 03-15-2022 PT Coag (PPP) [Time] 13.2 s 9.0-12.9 [facility] Leukocytes [#/volume] correc maxi for nucleated erythrocytes in Blood by Automated counOrdered By: Caden Jarrell on 03-15-2022 WBC corrected for nucl RBC Auto (Bld) [#/Vol] 7.8 10*3/uL 3.8-11.6 [facility] Lymphocytes Auto (Bld) [#/Vo l]Ordered By: Caden Jarrell on 03-15-2022 Lymphocytes (Bld) [#/Vol] 0.8 10*3/uL 1.00-4.8 [facility] Lymphocytes/100 WBC Auto (Bl d)Ordered By: Caden Jarrell on 03-15-2022 Lymphocytes/100 WBC (Bld) 10.6 % . [facility] MCH Auto (RBC) [Entitic mass ]Ordered By: Caden Jarrell on 03-15-2022 MCH (RBC) [Entitic mass] 32.1 pg 24.7-34.3 [facility] MCHC Auto (RBC) [Mass/Vol]Or dered By: Caden Jarrell on 03-15-2022 MCHC (RBC) [Mass/Vol] 34.7 g/dL 32.0-35.0 [facility] MCV Auto (RBC) [Entitic vol] Ordered By: Caden Jarrell on 03-15-2022 MCV (RBC) [Entitic vol] 92.3 fL 80-100 [facility] Monocyte distribution width [Entitic volume] in Blood by AutomatedOrdered By: Caden Jarrell on 03-15-2022 Monocyte distribution width Auto (Bld) [Entitic vol] 19.45 % 0.00-20.00 [facility] Monocytes Auto (Bld) [#/Vol] Ordered By: Caden Jarrell on 03-15-2022 Monocytes (Bld) [#/Vol] 0.8 10*3/uL 0.0-0.8 [facility] Monocytes/100 WBC Auto (Bld) Ordered By: Caden Jarrell on 03-15-2022 Monocytes/100 WBC (Bld) 10.2 % . [facility] Neutrophils Auto (Bld) [#/Vo l]Ordered By: Caden Jarrell on 03-15-2022 Neutrophils (Bld) [#/Vol] 6.1 10*3/uL 1.8-7.7 [facility] Neutrophils/100 WBC Auto (Bl d)Ordered By: Caden Jarrell on 03-15-2022 Neutrophils/100 WBC (Bld) 78.1 % . [facility] No Panel InformationOrdered By: Caden Jarrell on 03-15-2022 Estimated GFR () 49 mL/Min [facility] Comment on above: GFR estimated refere nce range: According to KDOQI guidelines, <60 ml/min/1.73m2 is sufficient to diagnose a patient with chronic kidney disease. Pharmacy Creatinine Clearance (Chem 43.20 [facility] Nucleated erythrocytes [Pres ence] in Blood by Automated countOrdered By: Caden Jarrell on 03-15-2022 Nucleated RBC Auto Ql (Bld) 0.1 /100{WBC} 0-0.5 [facility] Platelet mean volume Auto (B ld) [Entitic vol]Ordered By: Caden Jarrell on 03-15-2022 Platelet mean volume (Bld) [Entitic vol] 7.1 fL 6.3-10.7 [facility] Platelet poor plasma interna tional normalized ratio (INR) by coagulation assay (relatOrdered By: Caden Jarrell on 03-15-2022 INR Coag (PPP) [Relative time] 1.2 {INR} [facility] Comment on above: INR Therapeutic Rang e [...] 03-15-2022 Platelets (Bld) [#/Vol] 277 10*3/uL 150-450 [facility] RBC Auto (Bld) [#/Vol]Ordere d By: Caden Jarrell on 03-15-2022 RBC (Bld) [#/Vol] 3.43 10*6/uL 3.60-5.00 [facility] Serum or plasma anion gap de terminationOrdered By: Caden Jarrell on 03-15-2022 Anion gap [Moles/Vol] 14.5 mmol/L 6.0-15.0 [facility] Serum or plasma calcium sigifredo urement (mass/volume)Ordered By: Caden Jarrell on 03-15-2022 Calcium [Mass/Vol] 9.3 mg/dL 8.2-10.2 [facility] Serum or plasma chloride matti surement (moles/volume)Ordered By: Caden Jarrell on 03-15-2022 Chloride [Moles/Vol] 95 mmol/L 95-114 [facility] Serum or plasma creatine kin ase MB (CKMB)/total creatine kinase (CK) ratio by calculaOrdered By: Caden Jarrell on 03-15-2022 CK.MB Calc [Catalytic fraction] 5.1 % 0.00-2.50 [facility] Serum or plasma creatine kin ase MB measurement (mass/volume)Ordered By: Caden Jarrell on 03-15-2022 CK.MB [Mass/Vol] 1.7 ng/mL 0.6-6.3 [facility] Serum or plasma glucose sigifredo urement (mass/volume)Ordered By: Caden Jarrell on 03-15-2022 Glucose [Mass/Vol] 129 mg/dL 70-100 [facility] Comment on above: ADA recommended refe rence rangeRandom Glucose Reference Range is dependent on time and content of last meal. Glucose of more than 200 mg/dL in a nonstressed, ambulatory subject supports the diagnosis of Diabetes Mellitus. Serum or plasma potassium me asurement (moles/volume)Ordered By: Caden Jarrell on 03-15-2022 Potassium [Moles/Vol] 3.4 mmol/L 3.5-5.1 [facility] Serum or plasma sodium measu rement (moles/volume)Ordered By: Caden Jarrell on 03-15-2022 Sodium [Moles/Vol] 129 mmol/L 136-146 [facility] Serum or plasma total carbon dioxide measurement (moles/volume)Ordered By: Caden Jarrell on 03-15-2022 CO2 [Moles/Vol] 22.9 mmol/L 22.0-30.0 [facility] Serum or plasma urea nitroge n measurement (mass/volume)Ordered By: Caden Jarrell on 03-15-2022 Urea nitrogen [Mass/Vol] 14 mg/dL 9- [facility] Troponin I.cardiac [Mass/vol ume] in Serum or Plasma by High sensitivity methodOrdered By: Caden Jarrell on 03-15-2022 Troponin I.cardiac High sensitivity method [Mass/Vol] 24 pg/mL 0-15 [facility] WBC Auto (Bld) [#/Vol]Ordere d By: Caden Jarrell on 03-15-2022 WBC (Bld) [#/Vol] 7.8 10*3/uL 3.8-11.6 [facility] CBC AUTO DIFFon 12-19-2021 BASO # 0.0 103/ul Normal 0.0-0.1 [facility] Comment on above: Performed By: #### H STROPN #### [facility] [address] [place], [place] [address] Dr. Debra Blake Basophils/100 WBC (Bld) 0.5 % Normal 0.2-2.0 [facility] Comment on above: Performed By: #### H STROPN #### [facility] [address] [place] [address] Dr. Debra Blake EO # 0.1 103/ul Normal 0.0-0.7 [facility] Comment on above: Performed By: #### H STROPN #### [facility] [address] [place] [address] Dr. Debra Blake Eosinophils/100 WBC (Bld) 1.4 % Normal 0.9-7.0 [facility] Comment on above: Performed By: #### H STROPN #### [facility] [address] [place] [address] Dr. Debra Blake Erythrocyte distribution width (RBC) [Ratio] 14.1 % Normal 11.0-15.0 [facility] Comment on above: Performed By: #### H STROPN #### [facility] [address] [place] [address] Dr. Debra Blake Hematocrit (Bld) [Volume fraction] 26.2 % Critically low 36.0-48.0 [facility] Comment on above: Performed By: #### H STROPN #### [facility] [address] [place] [address] Dr. Debra Blake Hemoglobin (Bld) [Mass/Vol] 9.1 g/dL Critically low 12.0-16.0 [facility] Comment on above: Performed By: #### H STROPN #### [facility] [address] [place] [address] Dr. Debra Blake IG # 0.03 10e3/ul Normal 0.00-0.03 [facility] Comment on above: Performed By: #### H STROPN #### [facility] [address] [place] [address] Dr. Debra Blake IG % 0.4 % Normal 0.0-0.5 [facility] Comment on above: Performed By: #### H STROPN #### [facility] [address] [place] [address] Dr. Debra Blake LYMPH # 1.5 103/ul Normal 1.2-3.8 [facility] Comment on above: Performed By: #### H STROPN #### [facility] [address] [place] [address] [address] Debra Blake Lymphocytes/100 WBC (Bld) 19.0 % Critically low 20.5-60.0 [facility] Comment on above: Performed By: #### H STROPN #### [facility] [address] [place] [address] [address] Debra Blake MANUAL DIFF REQ NO Normal [facility] Comment on above: Performed By: #### H STROPN #### [facility] [address] [place] [address] [address] Debra Blake MCH (RBC) [Entitic mass] 34.3 pg Critically high 26.7-3 4.0 [facility] Comment on above: Performed By: #### H STROPN #### [facility] [address] [place] [address] Dr. Debra Blake MCHC (RBC) [Mass/Vol] 34.7 g/dL Normal 29.9-35.2 [facility] Comment on above: Performed By: #### H STROPN #### [facility] [address] [place] [address] Dr. Debra Blake MCV (RBC) [Entitic vol] 98.9 fL Normal 81.0-99.0 [facility] Comment on above: Performed By: #### H STROPN #### [facility] [address] [place] [address] Dr. Debra Blake MONO # 0.8 103/ul Normal 0.3-0.8 [facility] Comment on above: Performed By: #### H STROPN #### [facility] [address] [place] [address] Dr. Debra Blake Monocytes/100 WBC (Bld) 10.0 % Normal 1.7-12.0 [facility] Comment on above: Performed By: #### H STROPN #### [facility] [address] [place] [address] Dr. Debra Blake NEUT # 5.5 103/ul Normal 1.4-6.5 [facility] Comment on above: Performed By: #### H STROPN #### [facility] [address] [place] [address] [address] Debra Blake Neutrophils/100 WBC (Bld) 68.7 % Normal 43.0-75.0 [facility] Comment on above: Performed By: #### H STROPN #### [facility] [address] [place] [address] Dr. Debra Blake Platelet mean volume (Bld) [Entitic vol] 9.5 fL Normal 9.5-13.5 [facility] Comment on above: Performed By: #### H STROPN #### [facility] [address] [place] [address] [address] Debra Blake PLT 300 103/ul Normal 150-450 [facility] Comment on above: Performed By: #### H STROPN #### [facility] [address] [place] [address] Dr. Debra Blake RBC 2.65 106/ul Critically low 4.20-5.40 [facility] Comment on above: Performed By: #### H STROPN #### [facility] [address] [place] [address] Dr. Debra Blake WBC 8.1 103/ul Normal 4.0-11.0 [facility] Comment on above: Performed By: #### H STROPN #### [facility] [address] [place] [address] Dr. Debra Blake Covid-19 PCR ([facility])on 12-09 SARS-CoV-2 (COVID-19) RNA YVONNE+probe Ql (Unsp spec) Not detected Normal NOT DETECTED [facility] Comment on above: Result Comment: When diagnostic [...] for this test is supported by the [place] of Health and Human Service's declaration that [...] used). Performed By: #### C VDTB #### [facility] [address] [place] [address] Dr. Debra Blake ER URINE PROFILEon 2 Bilirubin Ql (U) Negative Normal NEGATIVE [facility] Comment on above: Performed By: #### H STROPN #### [facility] [address] [place] [address] Dr. Debra Blake Clarity (U) CLEAR Normal CLEAR [facility] Comment on above: Performed By: #### H STROPN #### [facility] [address] [place] [address] Dr. Debra Blake Color (U) LT. YELLOW Normal YELLOW [facility] Comment on above: Performed By: #### H STROPN #### [facility] [address] [place] [address] Dr. Debra Blake ERUAHD A micrscopic examina tion will be performed if indicated. Normal [facility] Comment on above: Performed By: #### H STROPN #### [facility] [address] [place] [address] Dr. Debra Blake Glucose Ql (U) Negative Normal NEGATIVE [facility] Comment on above: Performed By: #### H STROPN #### [facility] [address] [place] [address] Dr. Debra Blake Hemoglobin Ql (U) Negative Normal NEGATIVE [facility] Comment on above: Performed By: #### H STROPN #### [facility] [address] [place] [address] Dr. Debra Blake Ketones Ql (U) Negative Normal NEGATIVE [facility] Comment on above: Performed By: #### H STROPN #### [facility] [address] [place] [address] Dr. Debra Blake LEUKOCYTES Negative Normal NEGATIVE [facility] Comment on above: Performed By: #### H STROPN #### [facility] [address] [place] [address] Dr. Debra Blake Nitrite Ql (U) Negative Normal NEGATIVE [facility] Comment on above: Performed By: #### H STROPN #### [facility] [address] [place] [address] Dr. Debra Blake pH (U) 7.0 [pH] Normal 5-9 [facility] Comment on above: Performed By: #### H STROPN #### [facility] [address] [place] [address] Dr. Debra Blake SPEC GRAVITY 1.010 Normal 1.005-<=1. 025 [facility] Comment on above: Performed By: #### H STROPN #### [facility] [address] [place] [address] Dr. Debra Blake UA PROTEIN TRACE Normal NEGATIVE/ TRACE [facility] Comment on above: Performed By: #### H STROPN #### [facility] [address] [place] [address] Dr. Debra Blake UR MICRO IND NOT INDICATED Normal [facility] Comment on above: Performed By: #### H STROPN #### [facility] [address] [place] [address] Dr. Debra Blake Urobilinogen Qn (U) 0.2 {Pascale'U}/dL Normal 0.2 - 1. 0 [facility] Comment on above: Performed By: #### H STROPN #### [facility] [address] [place] [address] Dr. Debra Blake ETHANOL (BLD ALC)on 12-20-19 ALC NOTE NOTE: 80 mg/dl is th e legal limit for a blood alcohol level Normal [facility] Comment on above: Performed By: #### E TH #### [facility] [address] [place] [address] Dr. Debra Blake Ethanol [Mass/Vol] mg/dL Normal [facility] Comment on above: Performed By: #### E TH #### [facility] [address] [place] [address] Dr. Debra Blake PROF CHEM 8 (BAS METB)on Anion gap [Moles/Vol] 14.8 mmol/L Normal [facility] Comment on above: Performed By: #### H STROPN, CMP #### [facility] [address] [place] [address] [address] Debra Blake Calcium [Mass/Vol] 7.6 mg/dL Critically low 8.5-10.1 [facility] Comment on above: Performed By: #### H STROPN, CMP #### [facility] [address] [place] [address] [address] Debra Blake Chloride [Moles/Vol] 93 mmol/L Critically low 98-107 [facility] Comment on above: Performed By: #### H STROPN, CMP #### [facility] [address] [place] [address] Dr. Debra Blake CO2 [Moles/Vol] 30.6 mmol/L Normal 21.0-32.0 [facility] Comment on above: Performed By: #### H STROPN, CMP #### [facility] [address] [place] [address] [address] Debra Blake Creatinine [Mass/Vol] 2.27 mg/dL Critically high 0.55-1.02 [facility] Comment on above: Performed By: #### H STROPN, CMP #### [facility] [address] [place] [address] [address] Debra Blake EGFR-AF ISRAELI 27 mL/min/1.73m2 Critically low >=60 [facility] Comment on above: Performed By: #### H STROPN, CMP #### [facility] [address] [place] [address] [address] Debra Blake EGFR-NON AF ISRAELI 22 mL/min/1.73m2 Critically low >=60 [facility] Comment on above: Performed By: #### H STROPN, CMP #### [facility] [address] [place] [address] Dr. Debra Blake Glucose [Mass/Vol] 114 mg/dL Critically high 74-106 [facility] Comment on above: Performed By: #### H STROPN, CMP #### [facility] [address] [place] [address] [address] Debra Blake Potassium [Moles/Vol] 3.4 mmol/L Critically low 3.5-5.1 [facility] Comment on above: Performed By: #### H STROPN, CMP #### [facility] [address] [place] [address] [address] Debra Blake Sodium [Moles/Vol] 135 mmol/L Critically low 136-145 [facility] Comment on above: Performed By: #### H STROPN, CMP #### [facility] [address] [place] [address] [address] Debra Blake Urea nitrogen [Mass/Vol] 20.0 mg/dL Critically high 7.0-18 .0 [facility] Comment on above: Performed By: #### H STROPN, CMP #### [facility] [address] [place] [address] [address] Debra Blake Urea nitrogen/Creatinine [Mass ratio] 8.8 mg/mg Normal [facility] Comment on above: Performed By: #### H STROPN, CMP #### [facility] [address] [place] [address] Dr. Debra Blake TROPONIN, HIGH SENSITIVITYon 12-19-2021 HSTROP 16.7 pg/mL Normal 4.0-51.3 [facility] Comment on above: Result Comment: CUT- OFF POINTS HAVE BEEN ESTABLISHED BASED ON THE FOURTH UNIVERSAL DEFINITIONS OF MYOCARDIAL INFARCTION. THE UPPER REFERENCE LIMIT (URL) OF TROPONIN, DEFINED THE 99TH PERCENTILE OF cTnI DISTRIBUTION IN A REFERENCE POPULATION, HAS BEEN CONFIRMED THE DECISION THRESHOLD FOR NM DIAGNOSIS. Performed By: #### H STROPN #### [facility] [address] [place] [address] Dr. Debra Blake XR CHEST 1 Von [...] by: DENISE MESSER Date: 2021-12-19 15:57 Normal [facility] Consultation Noteon 12-16-19 Consultation Note [id number]:127 Normal [facility] RAD - CT Reporton 12-15-2021 RAD - CT Report [id number]:127 Normal [facility] Basophils Auto (Bld) [#/Vol] Ordered By: Hong Mcintosh on 12-10-2021 Basophils (Bld) [#/Vol] 0.1 10*3/uL 0.0-0.2 [facility] Basophils/100 WBC Auto (Bld) Ordered By: Hong Mcintosh on 12-10-2021 Basophils/100 WBC (Bld) 0.9 % . [facility] Blood hemoglobin measurement (mass/volume)Ordered By: Hong Mcintosh on 12-10-2021 Hemoglobin (Bld) [Mass/Vol] 7.5 g/dL 11.8-15.4 [facility] Blood leukocytes automated c ount (number/volume)Ordered By: Hong Mcintosh on 12-10-2021 WBC (Bld) [#/Vol] 6.3 10*3/uL 4.5-11.0 [facility] Creatinine and Glomerular fi ltration rate.predicted panel (S/P/Bld)Ordered By: Hong Mcintosh on 12-10-2021 Creatinine [Mass/Vol] 1.84 mg/dL 0.44-1.03 [facility] Eosinophils Auto (Bld) [#/Vo l]Ordered By: Hong Mcintosh on 12-10-2021 Eosinophils (Bld) [#/Vol] 0.2 10*3/uL 0.0-0.45 [facility] Eosinophils/100 WBC Auto (Bl d)Ordered By: Hong Mcintosh on 12-10-2021 Eosinophils/100 WBC (Bld) 3.5 % . [facility] Erythrocyte distribution wid th Auto (RBC) [Ratio]Ordered By: Hong Mcintosh on 12-10-2021 Erythrocyte distribution width (RBC) [Ratio] 16.3 % 11.9-15.3 [facility] Estimated glomerular filtrat ion rate (GFR) non- AmericanOrdered By: Hong Mcintosh on 12-10-2021 GFR/1.73 sq M.predicted among non-blacks MDRD (S/P/Bld) [Vol rate/Area] 28 mL/Min [facility] Hematocrit Auto (Bld) [Volum e fraction]Ordered By: Hong Mcintosh on 12-10-2021 Hematocrit (Bld) [Volume fraction] 22.8 % 34.0-46.4 [facility] Laboratory - Chemistry and C hemistry - challengeOrdered By: Hong Mcintosh on 12-10-2021 Magnesium [Mass/Vol] 0.7 mg/dL 1.6-2.6 [facility] Comment on above: Results called at 0825 on 12/10/21 Laboratory - Hematology and Cell countsOrdered By: Hong Mcintosh on 12-10-2021 Nucleated RBC/100 WBC (Bld) [Ratio] 0.0 % 0-0.5 [facility] Lymphocytes Auto (Bld) [#/Vo l]Ordered By: Hong Mcintosh on 12-10-2021 Lymphocytes (Bld) [#/Vol] 1.4 10*3/uL 1.00-4.8 [facility] Lymphocytes/100 WBC Auto (Bl d)Ordered By: Hong Mcintosh on 12-10-2021 Lymphocytes/100 WBC (Bld) 21.7 % . [facility] MCH Auto (RBC) [Entitic mass ]Ordered By: Hong Mcintosh on 12-10-2021 MCH (RBC) [Entitic mass] 34.3 pg 24.7-34.3 [facility] MCHC Auto (RBC) [Mass/Vol]Or dered By: Hong Mcintosh on 12-10-2021 MCHC (RBC) [Mass/Vol] 33.0 g/dL 32.0-35.0 [facility] MCV Auto (RBC) [Entitic vol] Ordered By: Hong Mcintosh on 12-10-2021 MCV (RBC) [Entitic vol] 103.8 fL 80-100 [facility] Monocytes Auto (Bld) [#/Vol] Ordered By: Hong Mcintosh on 12-10-2021 Monocytes (Bld) [#/Vol] 0.7 10*3/uL 0.0-0.8 [facility] Monocytes/100 WBC Auto (Bld) Ordered By: Hong Mcintosh on 12-10-2021 Monocytes/100 WBC (Bld) 11.2 % . [facility] Neutrophils Auto (Bld) [#/Vo l]Ordered By: Hong Mcintosh on 12-10-2021 Neutrophils (Bld) [#/Vol] 3.9 10*3/uL 1.8-7.7 [facility] Neutrophils/100 WBC Auto (Bl d)Ordered By: Hong Mcintosh on 12-10-2021 Neutrophils/100 WBC (Bld) 62.7 % . [facility] No Panel InformationOrdered By: Hong Mcintosh on 12-10-2021 Estimated GFR () 34 mL/Min [facility] Comment on above: GFR estimated refere nce range: According to KDOQI guidelines, <60 ml/min/1.73m2 is sufficient to diagnose a patient with chronic kidney disease. Pharmacy Creatinine Clearance (Chem 36.70 [facility] Platelet mean volume Auto (B ld) [Entitic vol]Ordered By: Hong Mcintosh on 12-10-2021 Platelet mean volume (Bld) [Entitic vol] 6.7 fL 6.3-10.7 [facility] Platelets Auto (Bld) [#/Vol] Ordered By: Hong Mcintosh on 12-10-2021 Platelets (Bld) [#/Vol] 356 10*3/uL 150-450 [facility] RBC Auto (Bld) [#/Vol]Ordere d By: Hong Mcintosh on 12-10-2021 RBC (Bld) [#/Vol] 2.20 10*6/uL 3.60-5.00 [facility] Serum or plasma anion gap de terminationOrdered By: Hong Mcintosh on 12-10-2021 Anion gap [Moles/Vol] TNP [facility] Comment on above: Test not performed Serum or plasma calcium sigifredo urement (mass/volume)Ordered By: Hong Mcintosh on 12-10-2021 Calcium [Mass/Vol] 9.0 mg/dL 8.2-10.2 [facility] Serum or plasma chloride matti surement (moles/volume)Ordered By: Hong Mcintosh on 12-10-2021 Chloride [Moles/Vol] 104 mmol/L 95-114 [facility] Serum or plasma glucose sigifredo urement (mass/volume)Ordered By: Hong Mcintosh on 12-10-2021 Glucose [Mass/Vol] 137 mg/dL 70-100 [facility] Comment on above: ADA recommended refe rence range Random Glucose Reference Range is dependent on time and content of last meal. Glucose of more than 200 mg/dL in a nonstressed, ambulatory subject supports the diagnosis of Diabetes Mellitus. Serum or plasma potassium me asurement (moles/volume)Ordered By: Hong Mcintosh on 12-10-2021 Potassium [Moles/Vol] 4.7 mmol/L 3.5-5.1 [facility] Serum or plasma sodium measu rement (moles/volume)Ordered By: Hong Mcintosh on 12-10-2021 Sodium [Moles/Vol] 131 mmol/L 136-146 [facility] Serum or plasma total carbon dioxide measurement (moles/volume)Ordered By: Hong Mcintosh on 12-10-2021 CO2 [Moles/Vol] 21.1 mmol/L 22.0-30.0 [facility] Serum or plasma urea nitroge n measurement (mass/volume)Ordered By: Hong Mcintosh on 12-10-2021 Urea nitrogen [Mass/Vol] 21 mg/dL 9-23 [facility] Serum DNA double strand anti body assay (units/volume)Ordered By: William Esposito on 12-09-2021 DNA double strand Ab Qn (S) [IU]/mL 0-9 [facility] Comment on above: Negative <5 Equivocal 5 - 9 Positive >9 Performed at: [facility] [place] [id number] Net Technical Architect: Sanford Mehta PhD, Phone: [phone] Albumin [Mass/volume] in Ser um or PlasmaOrdered By: William Esposito on 12-07-2021 Albumin [Mass/Vol] 2.6 g/dL 2.9-4.4 [facility] Albumin/Protein.total in 24 hour Urine by ElectrophoresisOrdered By: William Esposito on 12-07-2021 Albumin Elph (24H U) [Mass fraction] 69.2 % . [facility] Creatinine [Mass/volume] in UrineOrdered By: William Esposito on 12-07-2021 Creatinine (U) [Mass/Vol] 153.0 mg/dL [facility] Comment on above: No reference range e stablished Gamma globulin/Protein.total in 24 hour Urine by ElectrophoresisOrdered By: William Esposito on 12-07-2021 Gamma globulin Elph (24H U) [Mass fraction] 8.2 % . [facility] IgA [Mass/volume] in Serum o r PlasmaOrdered By: William Esposito on 12-07-2021 IgA [Mass/Vol] 357 mg/dL 87-352 [facility] IgG [Mass/volume] in Serum o r PlasmaOrdered By: William Vaibhav on 12-07-2021 IgG [Mass/Vol] 794 mg/dL 586-1602 [facility] IgM [Mass/volume] in Serum o r PlasmaOrdered By: William Vaibhav on 12-07-2021 IgM [Mass/Vol] 109 mg/dL 26-217 [facility] Comment on above: Performed at: [facility] [address] [id number] Net Technical Architect: Sanford Mehta PhD, Phone: [phone] Immunofixation for UrineOrde red By: William Esposito on 12-07-2021 Interpretation Immunofixation (U) [Interp] Comment: . [facility] Comment on above: Presence of monoclon al protein is unclear at this time. Suggest repeat in 3 to 6 months if clinically indicated. Performed at: [facility] [address] [id number] Net Technical Architect: Sanford Mehta PhD, Phone: [phone] Immunoglobulin light chains. kappa.free [Mass/volume] in SerumOrdered By: William Esposito on 12-07-2021 Immunoglobulin light chains.kappa.free (S) [Mass/Vol] 81.9 mg/L 3.3-19.4 [facility] Immunoglobulin light chains. kappa.free/Immunoglobulin light chains.lambda.free [MassOrdered By: William Esposito on 12-07-2021 Immunoglobulin light chains.kappa.free/Immuno globulin light chains.lambda.free (S) [Mass ratio] 1.31 0.26-1.65 [facility] Comment on above: Performed at: [facility] [address] [id number] Net Technical Architect: Sanford Mehta PhD, Phone: [phone] Immunoglobulin light chains. lambda.free [Mass/volume] in Serum or PlasmaOrdered By: William Vaibhav on 12-07-2021 Immunoglobulin light chains.lambda.free [Mass/Vol] 62.3 mg/L 5.7-26.3 [facility] No Panel InformationOrdered By: William Esposito on 12-07-2021 Urine Random Prot Electrophor Note See comment . [facility] Comment on above: Protein electrophore sis scan will follow via computer, mail, or beam machine operator delivery. Performed at: [address] [id number] [employer] Technical Architect: Sanford Mehta PhD, Phone: [phone] Protein Electrophoresis M-Alexei Not observed g/dL Not Observed [facility] Protein Electrophoresis Note See comment . [facility] Comment on above: Protein electrophore sis scan will follow via computer, mail, or beam machine operator delivery. Performed at: [facility] [employer] [id number] Net Technical Architect: Sanford Mehta PhD, Phone: [phone] Serum Immunofixation See comment . [facility] Comment on above: No monoclonality det ected. Protein [Mass/volume] in Ser um or PlasmaOrdered By: William Esposito on 12-07-2021 Protein [Mass/Vol] 5.2 g/dL 6.0-8.5 [facility] Protein [Mass/volume] in Uri neOrdered By: William Esposito on 12-07-2021 Protein (U) [Mass/Vol] 51.3 mg/dL Not Estab. [facility] Protein.monoclonal/Protein.t otal in 24 hour Urine by ElectrophoresisOrdered By: William Esposito on 12-07-2021 Protein.monoclonal Elph (24H U) [Mass fraction] Not observed % Not Observed [facility] Serum globulin measurement ( mass/volume)Ordered By: William Esposito on 12-07-2021 Globulin (S) [Mass/Vol] 2.6 g/dL 2.2-3.9 [facility] Serum or plasma albumin/glob ulin mass ratioOrdered By: William Vaibhav on 12-07-2021 Albumin/Globulin [Mass ratio] 1.0 {ratio} 0.7-1.7 [facility] Serum or plasma alpha 1 glob ulin measurement by electrophoresis (mass/volume)Ordered By: William Esposito on 08-30-2022 Alpha 1 globulin Elph [Mass/Vol] 0.3 g/dL 0.0-0.4 [facility] Serum or plasma alpha 2 glob ulin measurement by electrophoresis (mass/volume)Ordered By: William Vaibhav on 12-07-2021 Alpha 2 globulin Elph [Mass/Vol] 0.7 g/dL 0.4-1.0 [facility] Serum or plasma beta globuli n measurement by electrophoresis (mass/volume)Ordered By: William Vaibhav on 12-07-2021 Beta globulin Elph [Mass/Vol] 0.7 g/dL 0.7-1.3 [facility] Serum or plasma gamma globul in measurement by electrophoresis (mass/volume)Ordered By: William Vaibhav on 12-07-2021 Gamma globulin Elph [Mass/Vol] 0.9 g/dL 0.4-1.8 [facility] Troponin I.cardiac [Mass/vol ume] in Serum or Plasma by High sensitivity methodOrdered By: Hong Mcintosh on 12-07-2021 Troponin I.cardiac High sensitivity method [Mass/Vol] 7 pg/mL 0-15 [facility] Urine alpha 1 globulin/total protein by electrophoresisOrdered By: William Vaibhav on 12-07-2021 Alpha 1 globulin Elph (U) [Mass fraction] 3.1 % . [facility] Urine alpha 2 globulin/total protein ratio by electrophoresisOrdered By: William Vaibhav on 12-07-2021 Alpha 2 globulin Elph (U) [Mass fraction] 6.0 % . [facility] Urine beta globulin measurem ent by electrophoresis (mass/volume)Ordered By: William Vaibhav on 12-07-2021 Beta globulin Elph (U) [Mass/Vol] 13.5 % . [facility] Urine culture routineOrdered By: Hong Mcintosh on 12-07-2021 Bacteria identified Cx Nom (U) Klebsiella oxytoca [facility] Urine protein/creatinine rat ioOrdered By: William Vaibhav on 12-07-2021 Protein/Creatinine (U) [Ratio] 359 mg/g{Cre} 0-200 [facility] Albumin [Mass/volume] in Ser um or PlasmaOrdered By: William Esposito on 12-06-2021 Albumin [Mass/Vol] 3.0 g/dL 3.2-5.5 [facility] CULTURE URINEon 12-06-2021 CULTURE URINE Isolate 1 [...] Trimethoprim/Sulfamethoxaz ole <=20 S F Normal [facility] Comment on above: Performed By: #### [facility] #### [facility] [address] [place] [address] Dr. Debra Blake Glucose Glucometer (BldC) [M ass/Vol]Ordered By: Hong Mcintosh on 12-06-2021 Glucose [Mass/Vol] 145 mg/dL [facility] Comment on above: Random Glucose Refer ence Range is dependent on time and content of last meal. Glucose of more than 200 mg/dL in a nonstressed, ambulatory subject supports the diagnosis of Diabetes Mellitus. No Panel InformationOrdered By: Hong Mcintosh on 12-06-2021 Anti-Nuclear Antibody Comment 2 See comment . [facility] Comment on above: For more information about [...] titers Nucleosomes, Histones Drug-induced SLE Speckled Sm, PIE CRIMPING MACHINE OPERATOR, SCL-70, SLE,MCTD,PSS (diffuse form), SS-A/SS-B Sjogrens Nucleolar SCL-70, PM-1/SCL High titers Scleroderma, PM/DM Centromere Centromere PSS (limited form) w/Crest syndrome variable Nuclear Dot Sp100,[id number] Primary Biliary Cirrhosis Nuclear GP210, Primary Biliary Cirrhosis Membrane chun A,B,C Performed at: [facility] [address] [id number] Net Technical Architect: Sanford Mehta PhD, Phone: [phone] OSMOLALITY URINEon 2 Osmolality, Urine 180 mOsmol/kg Normal [facility] Comment on above: Result Comment: 24 h r : 300 - 900 Random: 50 - 1400 After 12hr fluid restriction: >850 Performed By: #### H STROPN #### [facility] [address] [address] [address] Debra Blake Serum nuclear antibody titer Ordered By: Hong Mcintosh on 12-06-2021 Nuclear Ab (S) [Titer] Positive . [facility] Comment on above: Negative <1:80 Borderline 1:80 Positive >1:80 Serum or plasma cyclic adeno sine monophosphate measurement (moles/volume)Ordered By: Hong Mcintosh on 12-06-2021 Adenosine monophosphate.cyclic [Moles/Vol] 10 units 0-19 [facility] Comment on above: Negative <20 Weak positive 20 - 39 Moderate positive 40 - 59 Strong positive >59 Performed at: - [facility] [id number] Net Technical Architect: Meli Bishop MD, Phone: [phone] Serum or plasma ethanol sigifredo urement (mass/volume)Ordered By: Rehan Isidro on 12-06-2021 Ethanol [Mass/Vol] mg/dL [facility] Ethanol [Mass/Vol] TNP [facility] Comment on above: Test not performed Serum speckled pattern antin uclear antibody (MATY) titerOrdered By: Hong Mcintosh on 12-06-2021 Speckled nuclear Ab pattern (S) [Titer] 1:80 . [facility] Comment on above: ICAP nomenclature: A C-2,4,5,29 Amphetamine Screen Ql (U)Ord ered By: Hong Mcintosh on 12-05-2021 Amphetamines Ql (U) Negative Negative [facility] Automated erythrocytes count in urine sediment (number/area)Ordered By: Hong Mcintosh on 12-05-2021 RBC Auto (Urine sed) [#/Area] 1-2 [HPF] 0-4 [facility] Automated leukocytes count i n urine sediment (number/area)Ordered By: Hong Mcintosh on 12-05-2021 WBC Auto (Urine sed) [#/Area] Innumerable [HPF] 0-4 [facility] Barbiturates [Presence] in U rineOrdered By: Hong Mcintosh on 12-05-2021 Barbiturates Ql (U) Negative Negative [facility] Benzodiazepines [Presence] i n UrineOrdered By: Hong Mcintosh on 12-05-2021 Benzodiazepines Ql (U) Positive Negative [facility] Bilirubin Test strip Ql (U)O rdered By: Hong Mcintosh on 12-05-2021 Bilirubin Ql (U) Negative Negative [facility] CT biopsyOrdered By: Patricia Mcintosh on 12-05-2021 Transferrin [Mass/Vol] 175 mg/dL 180-380 [facility] Cannabinoids [Presence] in U rine by Screen methodOrdered By: Hong Mcintosh on 12-05-2021 Cannabinoids Screen Ql (U) Negative Negative [facility] Comment on above: These are unconfirme d results and should not be used for legal purposes. Drug Cut-Off Concentration: AMPH 1000 ng/mL GAYLE 200 ng/mL ISAEL 200 ng/mL COCM 300 ng/mL OP 300 ng/mL PCP 25 ng/mL THC 20 ng/mL Color Auto (U)Ordered By: Nikos Mcintosh on 12-05-2021 Color (U) Yellow Yellow [facility] Ferritin [Mass/volume] in Se rum or PlasmaOrdered By: Hong Mcintosh on 12-05-2021 Ferritin [Mass/Vol] 80.8 ng/mL 11-306.8 [facility] Iron [Mass/volume] in Serum or PlasmaOrdered By: Hong Mcintosh on 08-28-2022 Iron [Mass/Vol] 22 ug/dL 40-150 [facility] Iron binding capacity [Mass/ volume] in Serum or PlasmaOrdered By: Hong Mcintosh on 12-05-2021 Iron binding capacity [Mass/Vol] 245 ug/dL 255-450 [facility] Ketones Auto test strip (U) [Mass/Vol]Ordered By: Hong Mcintosh on 12-05-2021 Ketones (U) [Mass/Vol] Negative Negative [facility] Laboratory - Drug toxicology Ordered By: Hong Mcintosh on 12-05-2021 Opiates Ql (U) Negative Negative [facility] Laboratory - UrinalysisOrder ed By: Hong Mcintosh on 12-05-2021 Hyaline casts LM Ql (Urine sed) 0-8 [LPF] 0-8 [facility] Lactate dehydrogenase measur ement (enzymatic activity/volume)Ordered By: Hong Mcintosh on 12-05-2021 LDH (Unsp spec) [Catalytic activity/Vol] 135 U/L 45-190 [facility] Nitrite Test strip Ql (U)Ord ered By: Hong Mcintosh on 12-05-2021 Nitrite Ql (U) Negative Negative [facility] No Panel InformationOrdered By: Hong Mcintosh on 12-05-2021 25-Hydroxy Vitamin D Total 21.8 ng/mL 30-100 [facility] Comment on above: VITAMIN D STATUS 25( OH)VITAMIN D RANGE (ng/mL) Deficient <20 Insufficient 20 to <30 Sufficient 30 to 100 Reference: Maggie MF,Jose NC, Gilberto VARGAS, et al. Evaluation,treatment, and prevention of vitamin D deficiency; an Endocrine Society clinical practice guideline. JCEM. 2010; 96(7):1911-30. Vitamin C level <0.1 mg/dL 0.4-2.0 [facility] Comment on above: This test was devkhang ped and its performance characteristics determined by [facility]. It has not been cleared or approved by the Food and Drug Administration. Vitamin C deficiency is generally defined as plasma or serum concentrations less than 0.2 mg/dL and levels between 0.2 and 0.4 mg/dL are considered low. Performed at: [facility] [id number] Net Technical Architect: Meli Bishop MD, Phone: [phone] Phencyclidine Screen Ql (U)O rdered By: Hong Mcintosh on 12-05-2021 Phencyclidine Ql (U) Negative Negative [facility] Protein Auto test strip (U) [Mass/Vol]Ordered By: Hong Mcintosh on 12-05-2021 Protein (U) [Mass/Vol] 30 mg/dL Negative [facility] Serum or plasma thyroxine (T 4) measurement (mass/volume)Ordered By: Hong Mcintosh on 12-05-2021 T4 [Mass/Vol] 7.19 ug/dL 5.39-11.82 [facility] Specific gravity Auto test s trip (U) [Rel density]Ordered By: Hong Mcintosh on 12-05-2021 Specific gravity (U) [Rel density] 1.013 1.001-1.03 0 [facility] Squamous epithelial cells de tection in urine sediment by light microscopyOrdered By: Hong Mcintosh on 12-05-2021 Epithelial cells.squamous LM Ql (Urine sed) 5-9 [HPF] 0-2 [facility] Thyroxine (T4) free [Mass/vo lume] in Serum or PlasmaOrdered By: Hong Mcintosh on 12-05-2021 Free T4 [Mass/Vol] 1.00 ng/dL 0.61-1.12 [facility] Urine bacteria detection by automated methodOrdered By: Hong Mcintosh on 12-05-2021 Bacteria Auto Ql (U) 4+ None Seen [facility] Urine clarity by refractomet ry automatedOrdered By: Hong Mcintosh on 12-05-2021 Clarity Refractometry automated (U) Cloudy Clear [facility] Urine cocaine detectionOrder ed By: Hong Mcintosh on 12-05-2021 Cocaine Ql (U) Negative Negative [facility] Urine glucose measurement by automated test strip (mass/volume)Ordered By: Hong Mcintosh on 12-05-2021 Glucose Auto test strip (U) [Mass/Vol] Normal mg/dL Normal [facility] Urine hemoglobin detection b y automated test stripOrdered By: Hong Mcintosh on 12-05-2021 Hemoglobin Auto test strip Ql (U) Negative Negative [facility] Urine leukocyte esterase det ection by automated test stripOrdered By: Hong Mcintosh on 12-05-2021 Leukocyte esterase Auto test strip Ql (U) 4+ Negative [facility] Urobilinogen Auto test strip (U) [Mass/Vol]Ordered By: Hong Mcintosh on 12-05-2021 Urobilinogen (U) [Mass/Vol] Normal mg/dL Normal [facility] pH Auto test strip (U)Ordere d By: Hong Mcintosh on 12-05-2021 pH (U) 5.5 [pH] 5.0-9.0 [facility] Activated partial thrombopla stin time (aPTT) in platelet poor plasma by coagulation aOrdered By: Hong Mcintosh on 12-04-2021 aPTT Coag (PPP) [Time] 29.9 s 25.1-36.5 [facility] CBC AUTO DIFFon 12-04-2021 BASO # 0.0 103/ul Normal 0.0-0.1 [facility] Comment on above: Performed By: #### H GARY, CMP #### [facility] [address] [place] [address] Dr. Debra Blake Basophils/100 WBC (Bld) 0.4 % Normal 0.2-2.0 [facility] Comment on above: Performed By: #### H GARY, CMP #### [facility] [address] [place] [address] Dr. Debra Blake EO # 0.1 103/ul Normal 0.0-0.7 [facility] Comment on above: Performed By: #### H GARY, CMP #### [facility] [address] [place] [address] Dr. Debra Blake Eosinophils/100 WBC (Bld) 1.3 % Normal 0.9-7.0 [facility] Comment on above: Performed By: #### H STROPN, CMP #### [facility] [address] [place] [address] Dr. Debra Blake Erythrocyte distribution width (RBC) [Ratio] 14.6 % Normal 11.0-15.0 [facility] Comment on above: Performed By: #### H STROPN, CMP #### [facility] [address] [place] [address] Dr. Debra Blake Hematocrit (Bld) [Volume fraction] 24.6 % Critically low 36.0-48.0 [facility] Comment on above: Performed By: #### H STROPN, CMP #### [facility] [address] [place] [address] Dr. Debra Blake Hemoglobin (Bld) [Mass/Vol] 8.6 g/dL Critically low 12.0-16.0 [facility] Comment on above: Performed By: #### H STROPN, CMP #### [facility] [address] [place] [address] Dr. Debra Blake IG # 0.04 10e3/ul Critically high 0.00-0.03 [facility] Comment on above: Performed By: #### H STROPN, CMP #### [facility] [address] [place] [address] Dr. Debra Blake IG % 0.6 % Critically high 0.0-0.5 [facility] Comment on above: Performed By: #### H STROPN, CMP #### [facility] [address] [place] [address] Dr. Debra Blake LYMPH # 1.3 103/ul Normal 1.2-3.8 [facility] Comment on above: Performed By: #### H STROPN, CMP #### [facility] [address] [place] [address] Dr. Debra Blake Lymphocytes/100 WBC (Bld) 19.7 % Critically low 20.5-60.0 [facility] Comment on above: Performed By: #### H STROPN, CMP #### [facility] [address] [address] [address] Debra Blake MANUAL DIFF REQ NO Normal [facility] Comment on above: Performed By: #### H STROPN, CMP #### [facility] [address] [address] [address] Debra Blake MCH (RBC) [Entitic mass] 34.3 pg Critically high 26.7-3 4.0 [facility] Comment on above: Performed By: #### H STROPN, CMP #### [facility] [address] [address] [address] Debra Blake MCHC (RBC) [Mass/Vol] 35.0 g/dL Normal 29.9-35.2 [facility] Comment on above: Performed By: #### H STROPN, CMP #### [facility] [address] [place] [address] Dr. Debra Blake MCV (RBC) [Entitic vol] 98.0 fL Normal 81.0-99.0 [facility] Comment on above: Performed By: #### H STROPN, CMP #### [facility] [address] [place] [address] Dr. Debra Blake MONO # 0.9 103/ul Critically high 0.3-0.8 [facility] Comment on above: Performed By: #### H STROPN, CMP #### [facility] [address] [place] [address] Dr. Debra Blake Monocytes/100 WBC (Bld) 12.7 % Critically high 1.7-12. 0 [facility] Comment on above: Performed By: #### H STROPN, CMP #### [facility] [address] [place] [address] Dr. Debra Blake NEUT # 4.4 103/ul Normal 1.4-6.5 [facility] Comment on above: Performed By: #### H STROPN, CMP #### [facility] [address] [place] [address] Dr. Debra Blake Neutrophils/100 WBC (Bld) 65.3 % Normal 43.0-75.0 [facility] Comment on above: Performed By: #### H STROPN, CMP #### [facility] [address] [address] [address] Debra Blake Platelet mean volume (Bld) [Entitic vol] 9.0 fL Critically low 9.5-13.5 [facility] Comment on above: Performed By: #### H STROPN, CMP #### [facility] [address] [address] [address] Debra Blake PLT 142 103/ul Critically low 150-450 [facility] Comment on above: Performed By: #### H STROPN, CMP #### [facility] [address] [address] [address] Debra Blake RBC 2.51 106/ul Critically low 4.20-5.40 [facility] Comment on above: Performed By: #### H STROPN, CMP #### [facility] [address] [place] [address] Dr. Debra Blake WBC 6.8 103/ul Normal 4.0-11.0 [facility] Comment on above: Performed By: #### H STROPN, CMP #### [facility] [address] [place] [address] Dr. Debra Blake BASO # 0.0 103/ul Normal 0.0-0.1 [facility] Comment on above: Performed By: #### C BC #### [facility] [address] [place] [address] Dr. Debra Blake Basophils/100 WBC (Bld) 0.5 % Normal 0.2-2.0 [facility] Comment on above: Performed By: #### C BC #### [facility] [address] [place] [address] Dr. Debra Blake EO # 0.1 103/ul Normal 0.0-0.7 [facility] Comment on above: Performed By: #### C BC #### [facility] [address] [place] [address] Dr. Debra Blake Eosinophils/100 WBC (Bld) 0.9 % Normal 0.9-7.0 [facility] Comment on above: Performed By: #### C BC #### [facility] [address] [place] [address] Dr. Debra Blake Erythrocyte distribution width (RBC) [Ratio] 14.6 % Normal 11.0-15.0 [facility] Comment on above: Performed By: #### C BC #### [facility] [address] [place] [address] Dr. Debra Blake Hematocrit (Bld) [Volume fraction] 26.2 % Critically low 36.0-48.0 [facility] Comment on above: Performed By: #### C BC #### [facility] [address] [place] [address] Dr. Debra Blake Hemoglobin (Bld) [Mass/Vol] 9.2 g/dL Critically low 12.0-16.0 [facility] Comment on above: Performed By: #### C BC #### [facility] [address] [place] [address] Dr. Debra Blake IG # 0.06 10e3/ul Critically high 0.00-0.03 [facility] Comment on above: Performed By: #### C BC #### [facility] [address] [place] [address] Dr. Debra Blake IG % 0.7 % Critically high 0.0-0.5 [facility] Comment on above: Performed By: #### C BC #### [facility] [address] [place] [address] Dr. Debra Blake LYMPH # 1.3 103/ul Normal 1.2-3.8 [facility] Comment on above: Performed By: #### C BC #### [facility] [address] [place] [address] Dr. Debra Blake Lymphocytes/100 WBC (Bld) 15.7 % Critically low 20.5-60.0 [facility] Comment on above: Performed By: #### C BC #### [facility] [address] [place] [address] Dr. Debra Blake MANUAL DIFF REQ NO Normal [facility] Comment on above: Performed By: #### C BC #### [facility] [address] [address] [address] Debra Blake MCH (RBC) [Entitic mass] 34.2 pg Critically high 26.7-3 4.0 [facility] Comment on above: Performed By: #### C BC #### [facility] [address] [place] [address] Dr. Debra Blake MCHC (RBC) [Mass/Vol] 35.1 g/dL Normal 29.9-35.2 [facility] Comment on above: Performed By: #### C BC #### [facility] [address] [place] [address] Dr. Debra Blake MCV (RBC) [Entitic vol] 97.4 fL Normal 81.0-99.0 [facility] Comment on above: Performed By: #### C BC #### [facility] [address] [place] [address] Dr. Debra Blake MONO # 1.1 103/ul Critically high 0.3-0.8 [facility] Comment on above: Performed By: #### C BC #### [facility] [address] [place] [address] Dr. Debra Blake Monocytes/100 WBC (Bld) 13.3 % Critically high 1.7-12. 0 [facility] Comment on above: Performed By: #### C BC #### [facility] [address] [place] [address] Dr. Debra Blake NEUT # 5.6 103/ul Normal 1.4-6.5 [facility] Comment on above: Performed By: #### C BC #### [facility] [address] [place] [address] Dr. Debra Blake Neutrophils/100 WBC (Bld) 68.9 % Normal 43.0-75.0 [facility] Comment on above: Performed By: #### C BC #### [facility] [address] [place] [address] Dr. Debra Blake Platelet mean volume (Bld) [Entitic vol] 9.2 fL Critically low 9.5-13.5 [facility] Comment on above: Performed By: #### C BC #### [facility] [address] [place], [place] [address] Dr. Debra Blake PLT 179 103/ul Normal 150-450 [facility] Comment on above: Performed By: #### C BC #### [facility] [address] [place], [place] [address] Dr. Debra Blake RBC 2.69 106/ul Critically low 4.20-5.40 [facility] Comment on above: Performed By: #### C BC #### [facility] [address] [place], [place] [address] Dr. Debra Blake WBC 8.1 103/ul Normal 4.0-11.0 [facility] Comment on above: Performed By: #### C BC #### [facility] [address] [place], [place] [address] Dr. Debra Blake Creatine kinase [Enzymatic a ctivity/volume] in Serum or PlasmaOrdered By: Hong Mcintosh on 12-04-2021 CK [Catalytic activity/Vol] 140 U/L 22-269 [facility] Direct bilirubin measurement Ordered By: Hong Mcintosh on 12-04-2021 Bilirubin.direct [Mass/Vol] 0.2 mg/dL 0.0-0.4 [facility] Folate [Mass/volume] in Seru m or PlasmaOrdered By: Hong Mcintosh on 12-04-2021 Folate [Mass/Vol] 5.1 ng/mL >5.9 [facility] Comment on above: Folate reference ran ge: >5.9 ng/ml The WHO technical consultation on folate and vitamin b12 deficiencies has determined that folate concentrations less than 4 ng/ml are considered deficient. Globulin Calc (S) [Mass/Vol] Ordered By: Hong Mcintosh on 12-04-2021 Globulin (S) [Mass/Vol] 3.2 g/dL [facility] Glucose mean value [Mass/vol ume] in Blood Estimated from glycated hemoglobinOrdered By: Hong Mcintosh on 12-04-2021 Average glucose Estimated from glycated hemoglobin (Bld) [Mass/Vol] 97 mg/dL [facility] Hemoglobin A1c percentageOrd ered By: Hong Mcintosh on 12-04-2021 HbA1c (Bld) [Mass fraction] 5.0 % 4.3-5.6 [facility] Comment on above: Increased risk for d iabetes: 5.7 - 6.4 diabetes: >6.4 glycemic control for adults with diabetes: <7.0 Laboratory - Chemistry and C hemistry - challengeOrdered By: Hong Mcintosh on 12-04-2021 Cobalamin (Vitamin B12) [Mass/Vol] 520 pg/mL 180-914 [facility] Laboratory - CoagulationOrde red By: Hong Mcintosh on 12-04-2021 PT Coag (PPP) [Time] 12.2 s 9.0-12.9 [facility] MAGNESIUMon 12-04-2021 Magnesium [Mass/Vol] 1.1 mg/dL Critically low 1.8-2.4 [facility] Comment on above: Performed By: #### H STROPN #### [facility] [address] [address] [address] Debra Blake Magnesium [Mass/Vol] 0.6 mg/dL Critically low 1.8-2.4 [facility] Comment on above: Performed By: #### H STROPN, CMP #### [facility] [address] [address] [address] Debra Blake PROF 14(COMP METB)on 022 Albumin [Mass/Vol] 2.7 g/dL Critically low 3.4-5.0 [facility] Comment on above: Performed By: #### H STROPN #### [facility] [address] [address] [address] Debra Blake Albumin/Globulin [Mass ratio] 0.8 {ratio} Normal [facility] Comment on above: Performed By: #### H STROPN #### [facility] [address] [address] [address] Debra Blake ALP [Catalytic activity/Vol] 57 U/L Normal 46-116 [facility] Comment on above: Performed By: #### H STROPN #### [facility] [address] [address] [address] Debra Blake ALT [Catalytic activity/Vol] 7 U/L Critically low 14-59 [facility] Comment on above: Performed By: #### H STROPN #### [facility] [address] [address] [address] Debra Blake Anion gap [Moles/Vol] 17.3 mmol/L Normal [facility] Comment on above: Performed By: #### H STROPN #### [facility] [address] [address] [address] Debra Blake AST [Catalytic activity/Vol] 14 U/L Critically low 15-37 [facility] Comment on above: Performed By: #### H STROPN #### [facility] [address] [address] [address] Debra Blake Bilirubin [Mass/Vol] 0.6 mg/dL Normal 0.2-1.0 [facility] Comment on above: Performed By: #### H STROPN #### [facility] [address] [address] [address] Debra Blake Calcium [Mass/Vol] 5.8 mg/dL Critically low 8.5-10.1 [facility] Comment on above: Result Comment: Test Repeated. Critical Value Verified Performed By: #### H STROPN #### [facility] [address] [address] [address] eDbra Blake Chloride [Moles/Vol] 94 mmol/L Critically low 98-107 [facility] Comment on above: Performed By: #### H STROPN #### [facility] [address] [address] [address] Debra Blake CO2 [Moles/Vol] 17.7 mmol/L Critically low 21.0-32.0 [facility] Comment on above: Performed By: #### H STROPN #### [facility] [address] [address] [address] Debra Blake Creatinine [Mass/Vol] 2.48 mg/dL Critically high 0.55-1.02 [facility] Comment on above: Performed By: #### H STROPN #### [facility] [address] [address] [address] Debra Blake EGFR-AF ISRAELI 24 mL/min/1.73m2 Critically low >=60 [facility] Comment on above: Performed By: #### H STROPN #### [facility] [address] [address] [address] Debra Blake EGFR-NON AF ISRAELI 20 mL/min/1.73m2 Critically low >=60 [facility] Comment on above: Performed By: #### H STROPN #### [facility] [address] [address] [address] Debra Blake Globulin (S) [Mass/Vol] 3.2 g/dL Normal [facility] Comment on above: Performed By: #### H STROPN #### [facility] [address] [address] [address] Debra Blake Glucose [Mass/Vol] 108 mg/dL Critically high 74-106 [facility] Comment on above: Performed By: #### H STROPN #### [facility] [address] [address] [address] Debra Blake Potassium [Moles/Vol] 3.0 mmol/L Critically low 3.5-5.1 [facility] Comment on above: Performed By: #### H STROPN #### [facility] [address] [address] [address] Debra Blake Protein [Mass/Vol] 5.9 g/dL Critically low 6.4-8.2 [facility] Comment on above: Performed By: #### H STROPN #### [facility] [address] [address] [address] Debra Blake Sodium [Moles/Vol] 126 mmol/L Critically low 136-145 [facility] Comment on above: Performed By: #### H STROPN #### [facility] [address] [address] [address] Debra Blake Urea nitrogen [Mass/Vol] 29.0 mg/dL Critically high 7.0-18 .0 [facility] Comment on above: Performed By: #### H STROPN #### [facility] [address] [address] [address] Debra Blake Urea nitrogen/Creatinine [Mass ratio] 11.7 mg/mg Normal [facility] Comment on above: Performed By: #### H STROPN #### [facility] [address] [address] [address] Debra Blake Albumin [Mass/Vol] 3.1 g/dL Critically low 3.4-5.0 [facility] Comment on above: Performed By: #### H STROPN, CMP #### [facility] [address] [address] [address] Debra Blake Albumin/Globulin [Mass ratio] 0.8 {ratio} Normal [facility] Comment on above: Performed By: #### H STROPN, CMP #### [facility] [address] [address] [address] Debra Blake ALP [Catalytic activity/Vol] 65 U/L Normal 46-116 [facility] Comment on above: Performed By: #### H STROPN, CMP #### [facility] [address] [place] [address] Dr. Debra Blake ALT [Catalytic activity/Vol] 9 U/L Critically low 14-59 [facility] Comment on above: Performed By: #### H STROPN, CMP #### [facility] [address] [address] [address] Debra Blake Anion gap [Moles/Vol] 17.3 mmol/L Normal [facility] Comment on above: Performed By: #### H STROPN, CMP #### [facility] [address] [address] [address] Debra Blake AST [Catalytic activity/Vol] 17 U/L Normal 15-37 [facility] Comment on above: Performed By: #### H STROPN, CMP #### [facility] [address] [place] [address] Dr. Debra Blake Bilirubin [Mass/Vol] 0.8 mg/dL Normal 0.2-1.0 [facility] Comment on above: Performed By: #### H STROPN, CMP #### [facility] [address] [place] [address] Dr. Debra Blake Calcium [Mass/Vol] 5.8 mg/dL Critically low 8.5-10.1 [facility] Comment on above: Result Comment: Test Repeated. Critical Value Verified Performed By: #### H STROPN, CMP #### [facility] [address] [place] [address] Dr. Debra Blake Chloride [Moles/Vol] 91 mmol/L Critically low 98-107 [facility] Comment on above: Performed By: #### H KINGSTONPN, CMP #### [facility] [address] [place] [address] Dr. Debra Blake CO2 [Moles/Vol] 19.6 mmol/L Critically low 21.0-32.0 [facility] Comment on above: Performed By: #### H KINGSTONPN, CMP #### [facility] [address] [place] [address] Dr. Debra Blake Creatinine [Mass/Vol] 2.66 mg/dL Critically high 0.55-1.02 [facility] Comment on above: Performed By: #### H GARY, CMP #### [facility] [address] [place] [address] Dr. Debra Blake EGFR-AF ISRAELI 22 mL/min/1.73m2 Critically low >=60 [facility] Comment on above: Performed By: #### H STROPN, CMP #### [facility] [address] [place] [address] Dr. Debra Blake EGFR-NON AF ISRAELI 18 mL/min/1.73m2 Critically low >=60 [facility] Comment on above: Performed By: #### H STROPN, CMP #### [facility] [address] [place] [address] Dr. Debra Blake Globulin (S) [Mass/Vol] 3.7 g/dL Normal [facility] Comment on above: Performed By: #### H STROPN, CMP #### [facility] [address] [address] [address] Debra Blake Glucose [Mass/Vol] 106 mg/dL Normal 74-106 [facility] Comment on above: Performed By: #### H GARY, CMP #### [facility] [address] [place] [address] Dr. Debra Blake Potassium [Moles/Vol] 2.8 mmol/L Critically low 3.5-5.1 [facility] Comment on above: Result Comment: Test Repeated. Critical Value Verified Performed By: #### H GARY, CMP #### [facility] [address] [place] [address] Dr. Debra Blake Protein [Mass/Vol] 6.8 g/dL Normal 6.4-8.2 [facility] Comment on above: Performed By: #### H GARY, CMP #### [facility] [address] [place] [address] Dr. Debra Blake Sodium [Moles/Vol] 123 mmol/L Critically low 136-145 [facility] Comment on above: Result Comment: Test Repeated. Critical Value Verified Performed By: #### H GARY, CMP #### [facility] [address] [address] [address] Debra Blake Urea nitrogen [Mass/Vol] 29.0 mg/dL Critically high 7.0-18 .0 [facility] Comment on above: Performed By: #### H GARY, CMP #### [facility] [address] [place] [address] Dr. Debra Blake Urea nitrogen/Creatinine [Mass ratio] 10.9 mg/mg Normal [facility] Comment on above: Performed By: #### H GARY, CMP #### [facility] [address] [place] [address] Dr. Debra Blake Phosphate [Mass/volume] in S lydia or PlasmaOrdered By: Hong Mcintosh on 12-04-2021 Phosphate [Mass/Vol] 3.6 mg/dL 2.5-4.6 [facility] Platelet poor plasma interna tional normalized ratio (INR) by coagulation assay (relatOrdered By: Hong Mcintosh on 12-04-2021 INR Coag (PPP) [Relative time] 1.1 {INR} [facility] Comment on above: INR Therapeutic Rang e [...] on 12-04-2021 Protein [Mass/Vol] 6.2 g/dL 6.1-7.9 [facility] Serum ionized calcium measur ement using ion specific electrode (mass/volume)Ordered By: Hong Mcintosh on 12-04-2021 Calcium.ionized ISE [Mass/Vol] 3.5 mg/dL 4.5-5.6 [facility] Comment on above: Performed at: [address] [id number] [employer] Technical Architect: Sanford Mehta PhD, Phone: [phone] Serum or plasma alanine orellana otransferase measurement without P-5'-P (enzymatic activiOrdered By: Hong Mcintosh on 12-04-2021 ALT No additional P-5'-P [Catalytic activity/Vol] 8 U/L 10-60 [facility] Serum or plasma albumin/glob ulin mass ratioOrdered By: Hong Mcintosh on 12-04-2021 Albumin/Globulin [Mass ratio] 0.9 {ratio} [facility] Serum or plasma alkaline lauren sphatase measurement (enzymatic activity/volume)Ordered By: Hong Mcintosh on 12-04-2021 ALP [Catalytic activity/Vol] 51 U/L 32-92 [facility] Serum or plasma aspartate am inotransferase measurement (enzymatic activity/volume)Ordered By: Hong Mcintosh on 12-04-2021 AST [Catalytic activity/Vol] 15 U/L 10-42 [facility] Serum or plasma creatine kin ase MB (CKMB)/total creatine kinase (CK) ratio by calculaOrdered By: Hong Mcintosh on 12-04-2021 CK.MB Calc [Catalytic fraction] 1.4 % 0.00-2.50 [facility] Serum or plasma creatine kin ase MB measurement (mass/volume)Ordered By: Hong Mcintosh on 12-04-2021 CK.MB [Mass/Vol] 2.0 ng/mL 0.6-6.3 [facility] Serum or plasma non-glucuron idated bilirubin measurement (mass/volume)Ordered By: Hong Mcintosh on 12-04-2021 Bilirubin.indirect [Mass/Vol] 0.6 mg/dL [facility] Serum or plasma prealbumin m easurement (mass/volume)Ordered By: Hong Mcintosh on 12-04-2021 Prealbumin [Mass/Vol] 15.8 mg/dL 18.0-38.0 [facility] Serum or plasma total biliru bin measurement (mass/volume)Ordered By: Hong Mcintosh on 12-04-2021 Bilirubin [Mass/Vol] 0.8 mg/dL 0.3-1.2 [facility] TROPONIN, HIGH SENSITIVITYon 12-04-2021 HSTROP 91.0 pg/mL Critically high 4.0-51.3 [facility] Comment on above: Result Comment: CUT- OFF POINTS HAVE BEEN ESTABLISHED BASED ON THE FOURTH UNIVERSAL DEFINITIONS OF MYOCARDIAL INFARCTION. THE UPPER REFERENCE LIMIT (URL) OF TROPONIN, DEFINED THE 99TH PERCENTILE OF cTnI DISTRIBUTION IN A REFERENCE POPULATION, HAS BEEN CONFIRMED THE DECISION THRESHOLD FOR NM DIAGNOSIS. Performed By: #### H STROJOCELIN, CMP #### [facility] [address] [place] [address] Dr. Debra Blake HSTROP 107.8 pg/mL Critically high 4.0-51.3 [facility] Comment on above: Result Comment: CUT- OFF POINTS HAVE BEEN ESTABLISHED BASED ON THE FOURTH UNIVERSAL DEFINITIONS OF MYOCARDIAL INFARCTION. THE UPPER REFERENCE LIMIT (URL) OF TROPONIN, DEFINED THE 99TH PERCENTILE OF cTnI DISTRIBUTION IN A REFERENCE POPULATION, HAS BEEN CONFIRMED THE DECISION THRESHOLD FOR NM DIAGNOSIS. Performed By: #### H STROPN #### [facility] [address] [address] [address] Debra Blake TSHon 12-04-2021 TSH 0.321 uIU/mL Critically low 0.358-3.74 0 [facility] Comment on above: Performed By: #### H STROPN, CMP #### [facility] [address] [address] [address] Debra Blake TSH DL <= 0.005 mIU/L QnOrde red By: Hong Mcintosh on 12-04-2021 TSH Qn 0.39 m[IU]/L 0.45-5.33 [facility] Urine lactic acid measuremen tOrdered By: Hong Mcintosh on 12-04-2021 Lactate (U) [Moles/Vol] 1.3 mmol/L 0.5-2.2 [facility] CBC AUTO DIFFon 12-03-2021 BASO # 0.1 103/ul Normal 0.0-0.1 [facility] Comment on above: Performed By: #### H STROPN #### [facility] [address] [address] [address] Debra Blake Basophils/100 WBC (Bld) 0.6 % Normal 0.2-2.0 [facility] Comment on above: Performed By: #### H STROPN #### [facility] [address] [address] [address] Debra Blake EO # 0.1 103/ul Normal 0.0-0.7 [facility] Comment on above: Performed By: #### H STROPN #### [facility] [address] [address] [address] Debra Blake Eosinophils/100 WBC (Bld) 1.5 % Normal 0.9-7.0 [facility] Comment on above: Performed By: #### H STROPN #### [facility] [address] [address] [address] Debra Blake Erythrocyte distribution width (RBC) [Ratio] 14.6 % Normal 11.0-15.0 [facility] Comment on above: Performed By: #### H STROPN #### [facility] [address] [place] [address] Dr. Debra Blake Hematocrit (Bld) [Volume fraction] 27.4 % Critically low 36.0-48.0 [facility] Comment on above: Performed By: #### H STROPN #### [facility] [address] [place] [address] Dr. Debra Blake Hemoglobin (Bld) [Mass/Vol] 9.7 g/dL Critically low 12.0-16.0 [facility] Comment on above: Performed By: #### H STROPN #### [facility] [address] [place] [address] Dr. Debra Blake IG # 0.08 10e3/ul Critically high 0.00-0.03 [facility] Comment on above: Performed By: #### H STROPN #### [facility] [address] [place] [address] Dr. Debra Blake IG % 0.9 % Critically high 0.0-0.5 [facility] Comment on above: Performed By: #### H STROPN #### [facility] [address] [place] [address] Dr. Debra Blake LYMPH # 1.9 103/ul Normal 1.2-3.8 [facility] Comment on above: Performed By: #### H STROPN #### [facility] [address] [place] [address] Dr. Debra Blake Lymphocytes/100 WBC (Bld) 20.9 % Normal 20.5-60.0 [facility] Comment on above: Performed By: #### H STROPN #### [facility] [address] [place] [address] Dr. Debra Blake MANUAL DIFF REQ NO Normal [facility] Comment on above: Performed By: #### H STROPN #### [facility] [address] [place] [address] Dr. Debra Blake MCH (RBC) [Entitic mass] 34.5 pg Critically high 26.7-3 4.0 [facility] Comment on above: Performed By: #### H STROPN #### [facility] [address] [address] [address] Debra Blake MCHC (RBC) [Mass/Vol] 35.4 g/dL Critically high 29.9-35.2 [facility] Comment on above: Performed By: #### H STROPN #### [facility] [address] [place] [address] Dr. Debra Blake MCV (RBC) [Entitic vol] 97.5 fL Normal 81.0-99.0 [facility] Comment on above: Performed By: #### H STROPN #### [facility] [address] [place] [address] Dr. Debra Blake MONO # 1.3 103/ul Critically high 0.3-0.8 [facility] Comment on above: Performed By: #### H STROPN #### [facility] [address] [place] [address] Dr. Debra Blake Monocytes/100 WBC (Bld) 14.3 % Critically high 1.7-12. 0 [facility] Comment on above: Performed By: #### H STROPN #### [facility] [address] [place] [address] Dr. Debra Blake NEUT # 5.5 103/ul Normal 1.4-6.5 [facility] Comment on above: Performed By: #### H STROPN #### [facility] [address] [place] [address] Dr. Debra Blake Neutrophils/100 WBC (Bld) 61.8 % Normal 43.0-75.0 [facility] Comment on above: Performed By: #### H STROPN #### [facility] [address] [place] [address] Dr. Debra Blake Platelet mean volume (Bld) [Entitic vol] 9.2 fL Critically low 9.5-13.5 [facility] Comment on above: Performed By: #### H STROPN #### [facility] [address] [place] [address] Dr. Debra Blake PLT 187 103/ul Normal 150-450 [facility] Comment on above: Performed By: #### H STROPN #### [facility] [address] [address] [address] Debra Blake RBC 2.81 106/ul Critically low 4.20-5.40 [facility] Comment on above: Performed By: #### H STROPN #### [facility] [address] [address] [address] Debra Blake WBC 8.9 103/ul Normal 4.0-11.0 [facility] Comment on above: Performed By: #### H STROPN #### [facility] [address] [address] [address] Debra Blake Covid-19 PCR ([facility])on 11-09 SARS-CoV-2 (COVID-19) RNA YVONNE+probe Ql (Unsp spec) Not detected Normal NOT DETECTED [facility] Comment on above: Result Comment: When diagnostic [...] for this test is supported by the [place] of Health and Human Service's declaration that [...] used). Performed By: #### C VDTBH #### [facility] [address] [place] [address] Dr. Debra Blake ER URINE PROFILEon 2 Bilirubin Ql (U) Negative Normal NEGATIVE [facility] Comment on above: Performed By: #### U MICRO, ERUR #### [facility] [address] [address] [address] Debra Blake Clarity (U) CLEAR Normal CLEAR [facility] Comment on above: Performed By: #### U MICRO, ERUR #### [facility] [address] [place] [address] Dr. Debra Blake Color (U) LT. YELLOW Normal YELLOW [facility] Comment on above: Performed By: #### U MICRO, ERUR #### [facility] [address] [place] [address] Dr. Debra Blake ERUAHD A micrscopic examina tion will be performed if indicated. Normal [facility] Comment on above: Performed By: #### U MICRO, ERUR #### [facility] [address] [place] [address] Dr. Debra Blake Glucose Ql (U) Negative Normal NEGATIVE [facility] Comment on above: Performed By: #### U MICRO, ERUR #### [facility] [address] [place] [address] Dr. Debra Blake Hemoglobin Ql (U) TRACE-LYSED Abnormal NEGATIVE [facility] Comment on above: Performed By: #### U MICRO, ERUR #### [facility] [address] [place] [address] Dr. Debra Blake Ketones Ql (U) Negative Normal NEGATIVE [facility] Comment on above: Performed By: #### U MICRO, ERUR #### [facility] [address] [place] [address] Dr. Debra Blake LEUKOCYTES MODERATE Abnormal NEGATIVE [facility] Comment on above: Performed By: #### U MICRO, ERUR #### [facility] [address] [place] [address] Dr. Debra Blake Nitrite Ql (U) Negative Normal NEGATIVE [facility] Comment on above: Performed By: #### U MICRO, ERUR #### [facility] [address] [place] [address] Dr. Debra Blake pH (U) 6.0 [pH] Normal 5-9 [facility] Comment on above: Performed By: #### U MICRO, ERUR #### [facility] [address] [place] [address] Dr. Debra Blake SPEC GRAVITY 1.010 Normal 1.005-<=1. 025 [facility] Comment on above: Performed By: #### U MICRO, ERUR #### [facility] [address] [place] [address] Dr. Debra Blake UA PROTEIN TRACE Normal NEGATIVE/ TRACE [facility] Comment on above: Performed By: #### U MICRO, ERUR #### [facility] [address] [place] [address] Dr. Debra Blake UR MICRO IND INDICATED Normal [facility] Comment on above: Performed By: #### U MICRO, ERUR #### [facility] [address] [place] [address] Dr. Debra Blake Urobilinogen Qn (U) 0.2 {Pascale'U}/dL Normal 0.2 - 1. 0 [facility] Comment on above: Performed By: #### U MICRO, ERUR #### [facility] [address] [place] [address] Dr. Debra Blake MAGNESIUMon 12-03-2021 Magnesium [Mass/Vol] 0.4 mg/dL Critically low 1.8-2.4 [facility] Comment on above: Performed By: #### M G #### [facility] [address] [place] [address] Dr. Debra Blake PROF 14(COMP METB)on 022 Albumin [Mass/Vol] 3.2 g/dL Critically low 3.4-5.0 [facility] Comment on above: Performed By: #### H STROPN, CMP #### [facility] [address] [place] [address] Dr. Debra Blake Albumin/Globulin [Mass ratio] 0.8 {ratio} Normal [facility] Comment on above: Performed By: #### H STROPN, CMP #### [facility] [address] [place] [address] Dr. Debra Blake ALP [Catalytic activity/Vol] 64 U/L Normal 46-116 [facility] Comment on above: Performed By: #### H STROPN, CMP #### [facility] [address] [address] [address] Debra Blake ALT [Catalytic activity/Vol] 11 U/L Critically low 14-59 [facility] Comment on above: Performed By: #### H STROPN, CMP #### [facility] [address] [address] [address] Debra Blake Anion gap [Moles/Vol] 19.5 mmol/L Normal [facility] Comment on above: Performed By: #### H STROPN, CMP #### [facility] [address] [address] [address] Debra Blake AST [Catalytic activity/Vol] 19 U/L Normal 15-37 [facility] Comment on above: Performed By: #### H STROPN, CMP #### [facility] [address] [place] [address] Dr. Debra Blake Bilirubin [Mass/Vol] 0.5 mg/dL Normal 0.2-1.0 [facility] Comment on above: Performed By: #### H STROPN, CMP #### [facility] [address] [address] [address] Debra Blake Calcium [Mass/Vol] 5.8 mg/dL Critically low 8.5-10.1 [facility] Comment on above: Performed By: #### H STROPN, CMP #### [facility] [address] [address] [address] Debra Blake Chloride [Moles/Vol] 88 mmol/L Critically low 98-107 [facility] Comment on above: Performed By: #### H STROPN, CMP #### [facility] [address] [address] [address] Debra Blake CO2 [Moles/Vol] 19.7 mmol/L Critically low 21.0-32.0 [facility] Comment on above: Performed By: #### H STROPN, CMP #### [facility] [address] [address] [address] Debra Blake Creatinine [Mass/Vol] 2.77 mg/dL Critically high 0.55-1.02 [facility] Comment on above: Performed By: #### H STROPN, CMP #### [facility] [address] [address] [address] Debra Blake EGFR-AF ISRAELI 21 mL/min/1.73m2 Critically low >=60 [facility] Comment on above: Performed By: #### H STROPN, CMP #### [facility] [address] [address] [address] Debra Blake EGFR-NON AF ISRAELI 18 mL/min/1.73m2 Critically low >=60 [facility] Comment on above: Performed By: #### H STROPN, CMP #### [facility] [address] [address] [address] Debra Blake Globulin (S) [Mass/Vol] 3.9 g/dL Normal [facility] Comment on above: Performed By: #### H STROPN, CMP #### [facility] [address] [address] [address] Debra Blake Glucose [Mass/Vol] 99 mg/dL Normal 74-106 [facility] Comment on above: Performed By: #### H STROPN, CMP #### [facility] [address] [address] [address] Debra Blake Potassium [Moles/Vol] 3.2 mmol/L Critically low 3.5-5.1 [facility] Comment on above: Performed By: #### H STROPN, CMP #### [facility] [address] [address] [address] Debra Blake Protein [Mass/Vol] 7.1 g/dL Normal 6.4-8.2 [facility] Comment on above: Performed By: #### H STROPN, CMP #### [facility] [address] [address] [address] Debra Blake Sodium [Moles/Vol] 124 mmol/L Critically low 136-145 [facility] Comment on above: Performed By: #### H STROPN, CMP #### [facility] [address] [address] [address] Debra Blake Urea nitrogen [Mass/Vol] 28.0 mg/dL Critically high 7.0-18 .0 [facility] Comment on above: Performed By: #### H GARY, CMP #### [facility] [address] [place] [address] Dr. Debra Blake Urea nitrogen/Creatinine [Mass ratio] 10.1 mg/mg Normal [facility] Comment on above: Performed By: #### H GARY, CMP #### [facility] [address] [place] [address] Dr. Debra Blake TROPONIN, HIGH SENSITIVITYon 12-03-2021 HSTROP 96.9 pg/mL Critically high 4.0-51.3 [facility] Comment on above: Result Comment: CUT- OFF POINTS HAVE BEEN ESTABLISHED BASED ON THE FOURTH UNIVERSAL DEFINITIONS OF MYOCARDIAL INFARCTION. THE UPPER REFERENCE LIMIT (URL) OF TROPONIN, DEFINED THE 99TH PERCENTILE OF cTnI DISTRIBUTION IN A REFERENCE POPULATION, HAS BEEN CONFIRMED THE DECISION THRESHOLD FOR NM DIAGNOSIS. Performed By: #### H GARY, CMP #### [facility] [address] [place] [address] Dr. Debra Blake HSTROP 102.0 pg/mL Critically high 4.0-51.3 [facility] Comment on above: Result Comment: CUT- OFF POINTS HAVE BEEN ESTABLISHED BASED ON THE FOURTH UNIVERSAL DEFINITIONS OF MYOCARDIAL INFARCTION. THE UPPER REFERENCE LIMIT (URL) OF TROPONIN, DEFINED THE 99TH PERCENTILE OF cTnI DISTRIBUTION IN A REFERENCE POPULATION, HAS BEEN CONFIRMED THE DECISION THRESHOLD FOR NM DIAGNOSIS. Performed By: #### H GARY, CMP #### [facility] [address] [place] [address] Dr. Debra Blake URINE MICROSCOPIC ONLYon BACTERIA SMALL Abnormal NONE SEEN [facility] Comment on above: Performed By: #### U MICRO, ERUR #### [facility] [address] [place] [address] Dr. Debra Blake Bacteria identified Cx Nom (U) INDICATED Normal [facility] Comment on above: Performed By: #### U MICRO, ERUR #### [facility] [address] [place] [address] Dr. Debra Blake CAST NONE SEEN Normal NONE SEEN [facility] Comment on above: Performed By: #### U MICRO, ERUR #### [facility] [address] [address] [address] Debra Blake Crystals LM Nom (Urine sed) NONE SEEN Normal NONE SEEN [facility] Comment on above: Performed By: #### U MICRO, ERUR #### [facility] [address] [place] [address] Dr. Debra Blake Epithelial cells LM Ql (Urine sed) FEW Abnormal NONE SEEN /RARE [facility] Comment on above: Performed By: #### U MICRO, ERUR #### [facility] [address] [place] [address] Dr. Debra Blake MUCOUS NONE SEEN Normal NONE SEEN [facility] Comment on above: Performed By: #### U MICRO, ERUR #### [facility] [address] [place] [address] Dr. Debra Blake RBC 2-5 Abnormal 0-2 [facility] Comment on above: Performed By: #### U MICRO, ERUR #### [facility] [address] [place] [address] Dr. Debra Blake WBC (U) [#/Vol] /uL Abnormal NONE SEEN [facility] Comment on above: Performed By: #### U MICRO, ERUR #### [facility] [address] [place] [address] Dr. Debra Blake XR CHEST 1 Von [...] by: CODY ALEXANDER Date: 2021-12-03 19:03 Normal [facility] Vital Signs Date Time Vital Sign Value Performing Clinician Facility 12-27-2023 14:41-0400 Diastolic blood pressure 100 mm[Hg] [facility] 12-27-2023 14:41-0400 Heart rate 86 /min Katie Velasquez APRN Work Phone: [facility] 12-27-2023 14:41-0400 Systolic blood pressure 184 mm[Hg] [facility] 12-27-2023 14:35-0400 Body height 165.1 cm [facility] 12-27-2023 14:35-0400 Body mass index (BMI) [Ratio] 28.3 kg/m2 [facility] 12-27-2023 14:35-0400 Body temperature 98 [degF] [facility] 12-27-2023 14:35-0400 Body weight 77.16 kg [facility] 12-27-2023 14:35-0400 Heart rate 138 /min [facility] 12-27-2023 14:35-0400 Respiratory rate 20 /min [facility] 12-27-2023 14:35-0400 SaO2% (BldA) [Mass fraction] 99 % [facility] 09-28-2023 14:43-0400 Body height 165.1 cm [facility] 09-28-2023 14:43-0400 Body mass index (BMI) [Ratio] 25.6 kg/m2 [facility] 09-28-2023 14:43-0400 Body weight 69.85 kg [facility] 09-28-2023 14:43-0400 Diastolic blood pressure 76 mm[Hg] [facility] 09-28-2023 14:43-0400 Heart rate 77 /min [facility] 09-28-2023 14:43-0400 SaO2% (BldA) [Mass fraction] 98 % [facility] 09-28-2023 14:43-0400 Systolic blood pressure 118 mm[Hg] [facility] 03-15-2022 20:42-0500 Diastolic blood pressure 89 mm[Hg] DO [facility] Work Phone: [facility] 03-15-2022 20:42-0500 Heart rate 98 /min [facility] Work Phone: [facility] 03-15-2022 20:42-0500 Respiratory rate 18 /min [facility] Work Phone: [facility] 03-15-2022 20:42-0500 SaO2% (BldA) [Mass fraction] 99 % DO Segundo Rawls Work Phone: [facility] 03-15-2022 20:42-0500 Systolic blood pressure 158 mm[Hg] DO Segundo Rawls Work Phone: [facility] 03-15-2022 18:02-0500 Body temperature 98 [degF] DO Segundo Rawls Work Phone: [facility] 03-15-2022 17:59-0500 Body height 162.56 cm DO Segundo Rawls Work Phone: [facility] 03-15-2022 17:59-0500 Body weight 69.3 kg DO Segundo [employer] Work Phone: [facility] 03-15-2022 17:40-0500 Body height 165.1 cm William Vaibhav Other 2,10E+07 Other 03-15-2022 17:40-0500 Body mass index (BMI) [Ratio] 25.39 kg/m2 William Vaibhav Other 2,10E+07 Other 03-15-2022 17:40-0500 Body temperature 96.6 [degF] William Vaibhav Other 2,10E+07 Other 03-15-2022 17:40-0500 Body weight 69.22 kg William Vaibhav Other 2,10E+07 Other 03-15-2022 17:40-0500 Diastolic blood pressure 137 mm[Hg] William Vaibhav Other 2,10E+07 Other 03-15-2022 17:40-0500 Respiratory rate 18 /min William Vaibhav Other [facility] [employer] Other 03-15-2022 17:40-0500 SaO2% (BldA) [Mass fraction] 98 % William Vaibhav Other [facility] [employer] Other 03-15-2022 17:40-0500 Systolic blood pressure 221 mm[Hg] William Vaibhav Other [facility] [employer] Other 12-10-2021 11:52-0400 Body temperature 98 [degF] DO [facility] Work Phone: [facility] 12-10-2021 11:52-0400 Diastolic blood pressure 82 mm[Hg] DO [facility] Work Phone: [facility] 12-10-2021 11:52-0400 Heart rate 77 /min DO [facility] Work Phone: [facility] 12-10-2021 11:52-0400 Respiratory rate 16 /min DO [facility] Work Phone: [facility] 12-10-2021 11:52-0400 SaO2% (BldA) [Mass fraction] 99 % DO [facility] Work Phone: [facility] 12-10-2021 11:52-0400 Systolic blood pressure 132 mm[Hg] DO [facility] Work Phone: [facility] 12-10-2021 06:00-0400 Body weight 88 kg DO [facility] Work Phone: [facility] 12-08-2021 14:53-0400 Body height 165.1 cm DO [facility] Work Phone: [facility] Encounters Encounter Date Encounter Type Care Provider Facility Start: 02-19-2024 End: 02-19-2024 ambulatory Katie Velasquez APRN Work Phone: [facility] Work Phone: Start: 02-19-2024 End: 02-19-2024 Departed Referred Katie Adanmechenathan ADVOCACY DIRECTOR Work Phone: [facility] Start: 12-27-2023 End: 12-27-2023 ambulatory [facility] Work Phone: Start: 12-27-2023 End: 12-27-2023 Patient encounter procedure [facility] Work Phone: Start: 10-02-2023 End: 10-02-2023 Telephone encounter Abhijit Pink CMA [facility] Start: 09-28-2023 End: 09-28-2023 ambulatory [facility] Work Phone: Start: 09-28-2023 End: 09-28-2023 Patient encounter procedure [facility] Work Phone: Start: 03-15-2022 End: 03-15-2022 Emergency department patient visit DO [facility] Work Phone: [facility] Start: 03-15-2022 End: 03-15-2022 ambulatory William Vaibhav Other 2,10E+07 Other Start: 03-15-2022 Office outpatient visit 25 minutes William Vaibhav [facility] Start: 12-19-2021 End: 12-19-2021 ambulatory JUNO HERNÁNDEZ Facility:[facility] Start: 12-15-2021 ambulatory MD Luis SAMS Facil ity:[facility] [place] Start: 12-08-2021 End: 12-09-2021 ambulatory MD Luis SAMS Facility:[id number] Start: 12-04-2021 End: 12-10-2021 Evaluation and management of inpatient DO [facility] Work Phone: [facility] [place] [facility] Start: 12-03-2021 End: 12-04-[address] UNIQUE AUSTIN Facility:[facility] Start: 07-04-2017 End: 07-05-2017 Ambulatory DEFAULT PHYSICIAN Facility:[facility] Start: 05-02-2017 End: 05-03-2017 Ambulatory DEFAULT PHYSICIAN Facility:[facility] Procedures Date Procedure Procedure Detail Performing [...] Rawls Work Phone: Urine culture DO Segundo [facility] Work Phone: Plan of Treatment Date Care Activity Detail Author Start: 12-27-[address] [facility] Work Phone: Start: 12-10-2023 Influenza vaccination Influenza Vaccine [facility] Start: 09-28-2023 Patient [address] [facility] Work Phone: Start: 12-10-2021 [facility] Work Phone: Start: 12-08-2021 Referral to urologist [facility] Work Phone: Start: 12-06-2021 Referral to flag signalman [facility] Work Phone: Start: 12-05-2021 Referral to die cutter apprentice [facility] Work Phone: Start: 12-05-2021 Administration of prophylactic treatment [facility] Work Phone: Start: 12-05-2021 Ascorbic acid measurement [facility] Work Phone: Start: 12-04-2021 Referral to records section supervisor [facility] Work Phone: Start: 12-04-2021 Referral to Environmental Aid [facility] Work Phone: Start: 12-04-2021 Hospital admission [facility] Work Phone: Start: 2013 Administration of varicella zoster vaccine Zoster (Shingles) Vaccine (1 of 2) [facility] Start: 01-31-1984 Screening for malignant neoplasm of cervix Pap Smear [facility] Start: 1982 DTaP,Tdap and Td Vaccines (1 - Tdap) DTaP,Tdap and Td Vaccines (1 - Tdap) [facility] Start: 1981 Adult BMI Screening Adult BMI Screening [facility] Start: 1975 Depression Screening Depression Screening [facility] Start: 1975 Tobacco Screening Tobacco Screening [facility] Blood chemistry [facility] Work Phone: Comprehensive metabo lic 2000 panel - Serum or Plasma [facility] MG Breast - bilatera l Diagnostic [facility] Patient Education High Blood Pre ssure ED [facility] Work Phone: Patient referral [facility] Work Phone: Phosphatidylethanol [Mass/volume] in Blood [facility] Work Phone: Thiamine [Moles/volu me] in Blood [facility] Work Phone: US Breast - left limited [facility] Payers Date Payer Category Payer Self-pay 1965 Unknown [id number] 1965 Unknown [id number] 1965 Unknown [id number] 1959 Unknown [id number] [id number] Unknown Unknown [id number] Social History Date Type Detail Facility Start: 12-08-2021 End: 09-28-2023 Tobacco smoking status NHIS Smoker (finding) [facility] Start: 1965 Sex Assigned At Female F [facility] Start: 09-19-2018 Sex Assigned At N [facility] [employer] Other Start: 02-21-2024 Sex Female (finding) [facility] Tobacco smoking status [facility] Tobacco smoking consumption unknown [facility] Start: 09-19-2018 History of Social function [facility] Childcare Unknown [facility] Start: 1965 Sex assigned at Not on file [facility] Goals Date Patient Goal Desired Activity /State Functional Status Date Assessment Result Facility 12-10-2021 Functional status Patient is Pro gressing Toward Baseline [facility] Work Phone: Mental Status Date Assessment Result Facility 12-10-2021 Cognitive function Cognitive Sta tus Patient at Baseline [facility] Work Phone: Clinical Notes 12-04-2021 to 12-27-2023 Note Date & Type Note Facility 12-27-2023 Evaluation note Diagnosis Onset Date Resolution Alcohol abuse acute December 092023 2:30pm Breast enlargement acute 2023 2:30pm Breast skin changes acute 2023 2:30pm Frequent falls acute December 27, 2023 [...] 27, 2023 2:30pm Weakness acute December 2:30pm [facility] Work Phone: 1([phone]) 119-331906-24-2024 Miscellaneous Notes* Telephone Encounter - Abhijit Pink CMA - 10/02/2023 9:55 AM EDT Called patient in regards to referral and we were to far of a drive. Advised patient to call referring provider to look for someone closer. [facility] Telephone encounter Note* Telephone Encounter - Abhijit Pink CMA - 10/02/2023 9:55 AM EDT Called patient in regards to referral and we were to far of a drive. Advised patient to call referring provider to look for someone closer. [facility] Evaluation [facility]* Encounter Date Diagnosis Assessment Notes [...] Advised to go to the emergency room. 2,10E+07 Other 09-07-2022 Note [id number]:[address] [place] [address] 12-10-2021 Discharge summary Author Hong Mcintosh [facility] December 10, 2021 7:47pm Note Date/Time December 10, 2021 1:26pm [facility] [address] [place] [address] Discharge Summary Signed Patient: Juanita Redman MR#: [id number] : 1965 Acct:[id number] Age/Sex: 56 / F Adm Date: 2 Loc: Room: [address] [place] [address]: Hong Mcintosh DO Copies to: MD Segundo Tijerina DO Kristopher L Lindbloom, DO Patrick R Waters, MD~ Providers Date of Discharge: 12/10/21 Discharging [...] about 24 hours before bed opened up. [facility]. Here in the hospital she did initially [...] ablation for that problem x2 at the [facility]. She had nephrology consultation. He felt that [...] % (Auto) 62.7, Lymph % (Auto) 21.7, Keith % (Auto) 11.2, Eos % (Auto) 3.5, Baso % (Auto) 0.9, Neut # (Auto) 3.9, Lymph # (Auto) 1.4, Keith # (Auto) 0.7, Eos # (Auto) 0.2, Baso # (Auto) 0.1, Nucleated RBC % (auto) 0.0 12/09/21 18:15: Hgb 8.0 L, Hct 24.2 L 12/09/21 14:48: Double Strand DNA Ab <1 12/07/21 12:45: Ur Random Albumin 69.2, U Random Total Protein 51.3, U Etaqb-0-Ahceuvee (%) 3.1, U Random z-8-Tvrnhzvp % 6.0, U Random b-Globulin % 13.5, [...] By: <Electronically signed by Hong Mcintosh DO> 12/10/211946 [facility] Work Phone: 1(152) 484-876609-02-2022 Progress note Author William Esposito [facility] December 10, 2021 11:31am Note Date/Time December 10, 2021 11:24am [facility] [address] [place] [address] Nephrology Progress Note Signed Patient: Juanita Redman MR#: [id number] : 1965 Acct:[id number] Age/Sex: 56 / F Adm Date: 2 Loc: Room: [address] [place] [address] Type: ADM IN Attending Dr: Hong Mcintosh DO Copies to: ~ Date of Service: 12/10/2021 Subjective Subjective Narrative: Mrs. Redman is a 56-year-old white female with history of COPD, smoker, alcohol abuse and hypothyroidism on levothyroxine who was transferred from [facility] on 12/04 for abnormal blood [...] 1 g of calcium before transfer to [facility]. Today's creatinine is slightly better [...] visible mass Skin: No rashes or bruises REGULATORY COMPLIANCE DIRECTOR: Awake,Alert, following simple command Musculoskeletal: No joint [...] 500 Mg Tablet) 500 mg PO BID.WITH.BFAST.LUNCH [facility] Stop: 12/05/22 07:59 Last Admin: 12/10/21 08:31 Dose: 500 mg Calcium Carbonate (Calcium Carbonate 500 Mg Tablet) 1,000 mg PO BID [facility] Stop: 12/06/22 09:29 Last Admin: 12/10/21 08:30 Dose: 1,000 mg Chlordiazepoxide HCl (Chlordiazepoxide 25 Mg Capsule) 0 mg PO PROTOCOL PRN; Protocol PRN Reason: Alcohol Withdrawal Stop: 06/04/22 19:32 Last Admin: 12/08/21 21:14 Dose: 50 mg Ferrous Sulfate (Ferrous Sulfate 324 Mg Tablet.) 324 mg PO Q48H [facility] Stop: 12/09/22 [...] 50 Mcg Tablet) 50 mcg PO DAILY.0630 [facility] Stop: 12/05/22 06:29 Last Admin: 12/10/21 07:31 Dose: 50 mcg Metoprolol Succinate (Metoprolol Succinate 100 Mg Tab.Er.24h) 100 mg PO DAILY [facility] Stop: 12/04/22 17:43 Last Admin: 12/10/21 08:30 Dose: 100 mg Metoprolol Tartrate (Metoprolol Tartrate 5 Mg/5 Ml Vial) 5 mg IV-PUSH Q4H PRN PRN Reason: tachycardia Stop: 12/06/22 19:17 Nicotine (Nicotine Patch 21 Mg/24hr 1 Each Patch.Td24) 1 each TRANSDERML DAILY [facility] Stop: 12/06/22 08:59 Last Admin: 12/10/21 08:31 Dose: Not Given Omeprazole (Omeprazole 20 Mg Capsule.) 20 mg PO DAILY [facility] Stop: 12/05/22 [...] physician into a diagnostic report(s) for Juanita Taylormillyzo. I have reviewed the report(s) and am [...] signed by William Esposito MD> 12/10/21 1131 [facility] Work Phone: 1(164) 877-692709-01-2022 Progress note Author Hong Mcintosh [facility] December 09, 2021 4:10pm Note Date/Time December 09, 2021 4:10pm [facility] [address] [place] [address] Hospitalist Progress Note Signed Patient: Juanita Redman MR#: [id number] : 1965 Acct:[id number] Age/Sex: 56 / F Adm Date: 2 Loc: 4 Room: [address] [place] [address] Type: ADM IN Attending Dr: Hong Mcintosh [...] 12/05/21 09:00 12/09/21 08:14 Omeprazole 20 Mg Capsule. PO 12/05/22 08:59 20 mg DAILY [facility] [...] signed by Hong Mcintosh DO> 12/09/21 1610 [facility] Work Phone: 1([phone] 528-222409-01-2022 Progress note Author William Esposito [facility] December 09, 2021 10:58am Note Date/Time December 09, 2021 10:58am [facility] [address] [place] [address] Nephrology Progress Note Signed Patient: Juanita Redman MR#: [id number] : 1965 Acct:[id number] Age/Sex: 56 / F Adm Date: 2 Loc: Room: [address] [place] [address] Type: ADM IN Attending Dr: Hong Mcintosh DO Copies to: ~ Date of Service: 12/09/2021 Subjective Subjective Narrative: Mrs. Redman is a 56-year-old white female with history of COPD, smoker, alcohol abuse and hypothyroidism on levothyroxine who was transferred from [facility] on 12/04 for abnormal blood [...] 1 g of calcium before transfer to [facility]. Today's creatinine is slightly better [...] visible mass Skin: No rashes or bruises REGULATORY COMPLIANCE DIRECTOR: Awake,Alert, following simple command Musculoskeletal: No joint swelling or limitation of movement Psychiatric: Cooperative, normal mood and affect abdominal hysterectomy Objective Intake and Output I&O: Intake & Output 12/06/21 12/07/21 12/08/21 12/09/21 23:59 23:59 23:59 23:59 Intake Total 1794.2 / 1794.2 1186.2 / 1186.2 1196.2 / 1196.2 200 / 200 Output Total 2 / 2 600 / 600 Balance 1792.2 / 1792.2 [...] 500 Mg Tablet) 500 mg PO BID.WITH.BFAST.LUNCH [facility] Stop: 12/05/22 07:59 Last Admin: 12/09/21 08:25 Dose: 500 mg Calcium Carbonate (Calcium Carbonate 500 Mg Tablet) 1,000 mg PO BID [facility] Stop: 12/06/22 09:29 Last Admin: 12/09/21 08:13 [...] 40 Mg Tablet) 40 mg PO DAILY.8A [facility] Stop: 12/10/22 07:59 Magnesium Sulfate (Magnesium Sulf [...] IV TID [facility] Stop: 12/04/22 21:59 Last Admin: 12/09/21 09:37 Dose: 204 mls/hr Levofloxacin (Levofloxacin 750 Mg Tablet) 750 mg PO Q48H [facility] Stop: 12/16/21 09:00 Last Admin: 12/09/21 08:13 Dose: 750 mg Levothyroxine Sodium (Levothyroxine 50 Mcg Tablet) 50 mcg PO DAILY.629 [facility] Stop: 12/05/22 06:29 Last Admin: 12/09/21 05:30 Dose: 50 mcg Metoprolol Succinate (Metoprolol Succinate 100 Mg Tab.Er.24h) 100 mg PO DAILY [facility] Stop: 12/04/22 17:43 Last Admin: 12/09/21 08:14 Dose: 100 mg Metoprolol Tartrate (Metoprolol Tartrate 5 Mg/5 Ml Vial) 5 mg IV-PUSH Q4H PRN PRN Reason: tachycardia Stop: 12/06/22 19:17 Nicotine (Nicotine Patch 21 Mg/24hr 1 Each Patch.Td24) 1 each TRANSDERML DAILY [facility] Stop: 12/06/22 08:59 Last Admin: 12/09/21 08:15 Dose: Not Given Omeprazole (Omeprazole 20 Mg Capsule.Dr) 20 mg PO DAILY [facility] Stop: 12/05/22 08:59 Last Admin: 12/09/21 08:14 Dose: 20 mg Potassium Chloride (Potassium Chloride Er 20 Meq Tab.Er.Prt) 20 meq PO DAILY PRN PRN Reason: Hypokalemia Stop: 12/04/22 10:15 Potassium Chloride (Potassium Chloride Er 20 Meq Tab.Er.Prt) 40 meq PO DAILY PRN PRN Reason: Hypokalemia Stop: 12/04/22 10:15 Sodium Bicarbonate (Sodium Bicarbonate 650 Mg Tablet) 650 mg PO TID [facility] Stop: 12/07/22 13:59 Last Admin: 12/09/21 08:14 [...] Unique Enciso M.D.12/08/2021 5:49 PM Dictation Location: [place] [address] Any impression(s) listed above is documentation that was entered by the reading physician into a diagnostic report(s) for Juanita Redamn. I have reviewed the report(s) and am [...] after discharge. Documented By: William Esposito MD 12/09/211053 Signed By: <Electronically signed by William Esposito MD> 12/09/21 1058 [facility] Work Phone: [phone]) [phone] Progress note Author Claude Castellanos [facility] December 08, 2021 6:59pm Note Date/Time December 08, 2021 6: 59pm [facility] [address] [place] [address] Hospitalist Progress Note Signed Patient: Juanita Redman MR#: [id number] : 1965 Acct:[id number] Age/Sex: 56 / F Adm Date: 2 Loc: 4 Room: [address] [place] [address] Type: ADM IN Attending Dr: Claude Castellanos [...] Dose Route Start Last Admin Trade Name Mirna PRN Reason Stop Dose Admin Acetaminophen 650 [...] <Electronically signed by Claude Castellanos MD> 12/08/211858 [facility] Work Phone: 1(312) 715-634808-31-2022 Consult note Author Luis Sams [facility] December 08, 2021 3:55pm Note Date/Time December 08, 2021 3: 55pm [facility] [address] [place] [address] Urology Consult Note Signed Patient: Juanita Redman MR#: [id number] : 1965 Acct:[id number] Age/Sex: 56 / F Adm Date: 2 Loc: Room: [address] [place] [address] Type: ADM IN Attending Dr: Claude Castellanos MD Copies to: DO Claude Rose MD Patrick R Waters, MD~ History of Present Illness Consult Details Consult Date: 12/08/2021 Requesting Provider: Claude Castellanos MD HPI: This lady was admitted to the hospital after transfer from [facility] dueto low sodium, calcium and magnesium and [...] % (Auto) 55.8, Lymph % (Auto) 27.7, Keith % (Auto) 13.1, Eos % (Auto) 2.7, Baso % (Auto) 0.7, Neut # (Auto) 3.1, Lymph # (Auto) 1.6, Keith # (Auto) 0.7, Eos # (Auto) 0.2, [...] % (Auto) 83.6, Lymph % (Auto) 7.8, Keith % (Auto) 8.3, Eos % (Auto) 0.1, Baso % (Auto) 0.2, Neut # (Auto) 6.2, Lymph # (Auto) 0.6 L, Keith # (Auto) 0.6, Eos # (Auto) 0.0, [...] <Electronically signed by MD Luis Sams> 12/08/21 5685 [facility] Work Phone: [phone]) 960-441508-31-2022 Progress note Author William Esposito [facility] December 08, 2021 11:01am Note Date/Time December 08, 2021 10 :55am [facility] [address] [place] [address] Nephrology Progress Note Signed Patient: Juanita Redman MR#: [id number] : 1965 Acct:[id number] Age/Sex: 56 / F Adm Date: 2 Loc: Room: [address] [place] [address] Type: ADM IN Attending Dr: Claude Castellanos MD Copies to: ~ Date of Service: 12/08/2021 Subjective Subjective Narrative: Mrs. Redman is a 56-year-old white female with history of COPD, smoker, alcohol abuse and hypothyroidism on levothyroxine who was transferred from [facility] on 12/04 for abnormal blood [...] 1 g of calcium before transfer to [facility]. Today's creatinine is slightly better [...] visible mass Skin: No rashes or bruises REGULATORY COMPLIANCE DIRECTOR: Awake,Alert, following simple command Musculoskeletal: No joint [...] 500 Mg Tablet) 500 mg PO BID.WITH.BFAST.LUNCH [facility] Stop: 12/05/22 07:59 Last Admin: 12/08/21 08:29 Dose: 500 mg Calcium Carbonate (Calcium Carbonate 500 Mg Tablet) 1,000 mg PO BID [facility] Stop: 12/06/22 09:29 Last Admin: 12/08/21 08:29 [...] 50.2 mls @ 100.4 mls/hr IV DAILY [facility] Stop: 12/04/22 13:59 Last Admin: 12/08/21 09:44 Dose: 100 mls/hr Thiamine HCl 200 mg/ Sodium (Chloride) 102 mls @ 204 mls/hr IV TID [facility] Stop: 12/04/22 21:59 Last Infusion: 12/08/21 08:59 Dose: Infused Levofloxacin (Levofloxacin 750 Mg Tablet) 750 mg PO Q48H [facility] Levothyroxine Sodium (Levothyroxine 50 Mcg Tablet) 50 mcg PO DAILY.0630 [facility] Stop: 12/05/22 06:29 Last Admin: 12/08/21 05:51 Dose: 50 mcg Metoprolol Succinate (Metoprolol Succinate 100 Mg Tab.Er.24h) 100 mg PO DAILY [facility] Stop: 12/04/22 17:43 Last Admin: 12/08/21 08:29 Dose: 100 mg Metoprolol Tartrate (Metoprolol Tartrate 5 Mg/5 Ml Vial) 5 mg IV-PUSH Q4H PRN PRN Reason: tachycardia Stop: 12/06/22 19:17 Nicotine (Nicotine Patch 21 Mg/24hr 1 Each Patch.Td24) 1 each TRANSDERML DAILY [facility] Stop: 12/06/22 08:59 Last Admin: 12/08/21 08:29 Dose: Not Given Omeprazole (Omeprazole 20 Mg Capsule.Dr) 20 mg PO DAILY [facility] Stop: 12/05/22 08:59 Last Admin: 12/08/21 08:28 Dose: 20 mg Potassium Chloride (Potassium Chloride Er 20 Meq Tab.Er.Prt) 20 meq PO DAILY PRN PRN Reason: Hypokalemia Stop: 12/04/22 10:15 Potassium Chloride (Potassium Chloride Er 20 Meq Tab.Er.Prt) 40 meq PO DAILY PRN PRN Reason: Hypokalemia Stop: 12/04/22 10:15 Sodium Bicarbonate (Sodium Bicarbonate 650 Mg Tablet) 650 mg PO TID [facility] Stop: 12/07/22 13:59 Last Admin: 12/08/21 08:28 Dose: 650 mg Sodium Chloride (Sodium Chloride 0.9 % 10 Ml Syringe) 0 ml IV-PUSH PRN PRN PRN Reason: Flush Stop: 12/04/22 10:15 Last Admin: 12/05/21 22:07 Dose: 10 ml Vitamin D (Cholecalciferol 10 Mcg (400 Units) Tablet) 20 mcg PO BID.WITH.MEALS [facility] Stop: 12/07/22 07:59 Last Admin: 12/08/21 08:28 [...] evidence of mass. Impression dictated by: Unique Encios M.D.12/07/2021 4:27 PM Dictation Location: [place] [address] Any impression(s) listed above is documentation that [...] signed by William Esposito MD> 12/08/21 1101 [facility] Work Phone: [phone] Progress note Author Claude Castellanos [facility] December 07, 2021 8:00pm Note Date/Time December 07, 2021 8: 00pm [facility] [address] [place] [address] Hospitalist Progress Note Signed Patient: Juanita Redman MR#: [id number] : 1965 Acct:[id number] Age/Sex: 56 / F Adm Date: 2 Loc: Room: [address] [place] [address] Type: ADM IN Attending Dr: Claude Castellanos [...] <Electronically signed by Claude Castellanos MD> 12/07/211999 [facility] Work Phone: 1([phone]) 321-510408-30-2022 Consult note Author Kylah Kingsley [facility] December 07, 2021 4:57pm Note Date/Time December 07, 2021 4: 51pm [facility] [address] [place] [address] Cardiology Consult Note Signed Patient: Juanita Redman MR#: [id number] : 1965 Acct:[id number] Age/Sex: 56 / F Adm Date: 2 Loc: Room: [address] [place] [address] Type: ADM IN Attending Dr: Claude Castellanos MD Copies to: DO Claude Rose MD Hassan M Ibrahim, MD, FACC~ Cardiology HPI History of Present Illness Consult Date: 12/07/21 Reason for Consult: Paroxysmal atrial fibrillation HPI: Ms. Redman is a 56 year old female who is being seen at the request of the hospitalist because of paroxysmal atrial fibrillation. Patient presented to [place] emergency department with syncopal event believed to [...] denies any complaints. While she was in [place] emergency department her high-sensitivitytroponin was elevated at [...] Lymph # (Auto) 0.6 L (1.00-4.8) x10E3/uL Keith # (Auto) 0.6 (0.0-0.8) x10E3/uL Eos # [...] ml @ 100.4 mls/hr IV DAILY [facility] Rx#:[id number] Thiamine 200 mg In Sodium 102 / 102 Chloride 0.9% 100 ml 100 ml @ 204 mls/hr IV TID [facility] Rx#: [id number] Oral 150 / 350 200 / 350 [...] failure, unspecified Documented By: Kylah Kingsley MD, [facility] 2 1649 Signed By: <Electronically signed by [facility] Kylah Kingsley> 12/07/21 2774 [facility] Work Phone: 1(958) 195-694908-30-2022 Progress note Author William Esposito [facility] December 07, 2021 10:38am Note Date/Time December 07, 2021 10 :34am [facility] [address] [place] [address] Nephrology Progress Note Signed Patient: Juanita Redman MR#: [id number] : 1965 Acct:[id number] Age/Sex: 56 / F Adm Date: 2 Loc: Room: [address] [place] [address] Type: ADM IN Attending Dr: Claude Castellanos MD Copies to: ~ Date of Service: 12/07/2021 Subjective Subjective Narrative: Mrs. Redman is a 56-year-old white female with history of COPD, smoker, alcohol abuse and hypothyroidism on levothyroxine who was transferred from [facility] on 12/04 for abnormal blood [...] 1 g of calcium before transfer to [facility]. Today's creatinine is slightly better [...] visible mass Skin: No rashes or bruises REGULATORY COMPLIANCE DIRECTOR: Awake,Alert, following simple command Musculoskeletal: No joint swelling or limitation of movement Psychiatric: Cooperative, normal mood and affect abdominal hysterectomy Objective Intake and Output I&O: Intake & Output 08/27/22 08/28/22 08/29/22 08/30/22 23:59 23:59 23:59 23:59 Intake Total 1949.2 / 1949.2 3658.2 / 8.2 1794.2 / 1794.2 302.2 / 302.2 Output Total Balance 1949.2 / 1949.2 3658.2 / 8.2 1792.2 / 1792.2 302.2 / 302.2 Weight 76.4 kg 75 kg 75.8 kg 84.9 kg Meds and Allergies Meds: Active Medications Acetaminophen (Acetaminophen 325 Mg Tablet) 650 mg PO Q6HR PRN PRN Reason: Pain Scale 1 - 3 or fever Stop: 12/04/22 10:15 Ascorbic Acid (Ascorbic Acid 500 Mg Tablet) 500 mg PO BID.WITH.BFAST.LUNCH [facility] Stop: 12/05/22 07:59 Last Admin: 12/07/21 08:12 Dose: 500 mg Calcium Carbonate (Calcium Carbonate 500 Mg Tablet) 1,000 mg PO BID [facility] Stop: 12/06/22 09:29 Last Admin: 12/07/21 08:11 [...] 50.2 mls @ 100.4 mls/hr IV DAILY [facility] Stop: 12/04/22 13:59 Last Infusion: 12/07/21 09:30 Dose: Infused Thiamine HCl 200 mg/ Sodium (Chloride) 102 mls @ 204 mls/hr IV TID [facility] Stop: 12/04/22 21:59 Last Infusion: 12/07/21 09:17 Dose: Infused Levofloxacin (Levaquin) 750 mg in 150 mls @ 100 mls/hr IV Q48H [facility] Last Admin: 12/07/21 09:31 Dose: 100 mls/hr Sodium Bicarbonate 150 meq/ (Dextrose) 1,150 mls @ 100 mls/hr IV .[id number] [facility] Stop: 12/06/22 19:29 Last Admin: 12/06/21 20:18 Dose: 100 mls/hr Levothyroxine Sodium (Levothyroxine 50 Mcg Tablet) 50 mcg PO DAILY.0630 [facility] Stop: 12/05/22 06:29 Last Admin: 12/07/21 05:42 Dose: 50 mcg Metoprolol Succinate (Metoprolol Succinate 100 Mg Tab.Er.24h) 100 mg PO DAILY [facility] Stop: 12/04/22 17:43 Last Admin: 12/07/21 08:12 Dose: 100 mg Metoprolol Tartrate (Metoprolol Tartrate 5 Mg/5 Ml Vial) 5 mg IV-PUSH Q4H PRN PRN Reason: tachycardia Stop: 12/06/22 19:17 Nicotine (Nicotine Patch 21 Mg/24hr 1 Each Patch.Td24) 1 each TRANSDERML DAILY [facility] Stop: 12/06/22 08:59 Last Admin: 12/07/21 08:12 Dose: 1 each Omeprazole (Omeprazole 20 Mg Capsule.Dr) 20 mg PO DAILY [facility] Stop: 12/05/22 08:59 Last Admin: 12/07/21 08:12 [...] Rossi Salinas M.D.12/06/2021 6:01 PM Dictation Location: [place] [address] Any impression(s) listed above is documentation that [...] signed by William Esposito MD> 12/07/21 1038 [facility] Work Phone: [phone] Progress note Author Hong Mcintosh [facility] December 06, 2021 7:32pm Note Date/Time December 06, 2021 7: 32pm [facility] [address] [place] [address] Hospitalist Progress Note Signed Patient: Juanita Redman MR#: [id number] : 1965 Acct:[id number] Age/Sex: 56 / F Adm Date: 2 Loc: Room: [address] [place] [address] Type: ADM IN Attending Dr: Hong Mcintosh [...] that she reported were completed at the [facility]. Given her vasovagal syncope in the bathroom [...] 11:01 Dextrose IV 12/06/21 20:59 100 mls/hr .[id number] [facility] Administration Sodium Chloride 1,000 mls @ [...] <Electronically signed by Hong Mcintosh DO> 12/06/211931 [facility] Work Phone: [phone]) 743-977308-29-2022 Consult note Author Rehan Isidro [facility] December 06, 2021 5:46pm Note Date/Time December 06, 2021 5: 46pm [facility] [address] [place] [address] Gastroenterology Consult Note Signed Patient: Juanita Redman MR#: [id number] : 1965 Acct:[id number] Age/Sex: 56 / F Adm Date: 2 Loc: Room: [address] [place] [address] Type: ADM IN Attending Dr: Hong Mcintosh [...] recorded. The patient was transferred to the [place] ER and admitted the day before yesterday [...] EGD and colonoscopy several years ago in [place]. She was told that she had a gastric polyp and a colon polyp. She has not had this rechecked. Hemoglobin did drop to 7.7 but is now 8.7. Stool for occult blood is negative. Blood counts show macrocytic indices with normal ferritin. Review of systems includes hypertension, hypothyroidism, history of NM, history of SVT. cc:: CC: Hong Mcintosh [...] % (Auto) 62.7 Lymph % (Auto) 19.7 Keith % (Auto) 14.4 Eos % (Auto) 2.3 Baso % (Auto) 0.9 Neut # (Auto) 4.0 Lymph # (Auto) 1.3 Keith # (Auto) 0.9 H Eos # (Auto) [...] MPV Neut % (Auto) Lymph % (Auto) Keith % (Auto) Eos % (Auto) Baso % (Auto) Neut # (Auto) Lymph # (Auto) Keith # (Auto) Eos # (Auto) Baso # [...] By: <Electronically signed by MD Rehan Isidro> 12/06/21 174 [facility] Work Phone: 1([phone]) 668-212808-29-2022 Progress note Author William Esposito [facility] December 06, 2021 1:19pm Note Date/Time December 06, 2021 1: 19pm [facility] [address] [place] [address] Nephrology Progress Note Signed Patient: Juanita Redman MR#: [id number] : 1965 Acct:[id number] Age/Sex: 56 / F Adm Date: 2 Loc: Room: [address] [place] [address] Type: ADM IN Attending Dr: Hong Mcintosh DO Copies to: ~ Date of Service: 12/06/2021 Subjective Subjective Narrative: Mrs. Redman is a 56-year-old white female with history of COPD, smoker, alcohol abuse and hypothyroidism on levothyroxine who was transferred from [facility] on 12/04 for abnormal blood [...] 1 g of calcium before transfer to [facility]. Today's creatinine is slightly better [...] visible mass Skin: No rashes or bruises REGULATORY COMPLIANCE DIRECTOR: Awake,Alert, following simple command Musculoskeletal: No joint [...] 50.2 mls @ 100.4 mls/hr IV DAILY [facility] Stop: 12/04/22 13:59 Last Admin: 12/06/21 11:00 Dose: 100 mls/hr Thiamine HCl 200 mg/ Sodium (Chloride) 102 mls @ 204 mls/hr IV TID CINTIA Stop: 12/04/22 21:59 Last Admin: 12/05/21 22:05 Dose: 204 mls/hr Levofloxacin (Levaquin) 750 mg in 150 mls @ 100 mls/hr IV Q48H [facility] Last Admin: 12/05/21 09:17 Dose: 100 mls/hr Ferric Sodium Gluconate Complex 250 mg/ Sodium Chloride 270 mls @ 135 mls/hr IVQAM [facility] Stop: 12/09/21 08:59 Last Admin: 12/06/21 11:01 Dose: 135 mls/hr Sodium Bicarbonate 150 meq/ (Dextrose) 1,150 mls @ 100 mls/hr IV .[id number] [facility] Stop: 12/06/21 20:59 Last Admin: 12/06/21 11:01 Dose: 100 mls/hr Levothyroxine Sodium (Levothyroxine 50 Mcg Tablet) 50 mcg PO DAILY.0630 [facility] Stop: 12/05/22 06:29 Last Admin: 12/06/21 05:30 [...] 100 Mg Tab.Er.24h) 100 mg PO DAILY [facility] Stop: 12/04/22 17:43 Last Admin: 12/06/21 11:12 Dose: Not Given Nicotine (Nicotine Patch 21 Mg/24hr 1 Each Patch.Td24) 1 each TRANSDERML DAILY [facility] Stop: 12/06/22 08:59 Omeprazole (Omeprazole 20 Mg Capsule.Dr) 20 mg PO DAILY [facility] Stop: 12/05/22 08:59 Last Admin: 12/06/21 11:13 [...] signed by William Esposito MD> 12/06/21 1319 [facility] Work Phone: 1(396) 905-870308-28-2022 Progress note Author Hong Mcintosh [facility] December 05, 2021 5:23pm Note Date/Time December 05, 2021 5: 09pm [facility] [address] [place] [address] Hospitalist Progress Note Signed with Addenda Patient: Juanita Redman MR#: [id number] : 1965 Acct:[id number] Age/Sex: 56 / F Adm Date: 2 Loc: 3T Room: [address] [place] [address] Type: ADM IN Attending Dr: Hong Mcintosh [...] Lactated Ringer's IV 12/04/22 14:14 75 mls/hr .[id number] CINTIA Administration Folic Acid 1 mg/ Dextrose [...] or symptoms. Documented By: Hong Mcintosh DO [id number] Signed By: <Electronically signed by Hong Mcintosh DO> 12/05/211721 [facility] Work Phone: 1(787) 435-650108-28-2022 Consult note Author Nilesh Oakley [facility] December 05, 2021 2:55pm Note Date/Time December 05, 2021 2: 55pm [facility] [address] [place] [address] Nephrology Consult Note Signed Patient: Juanita Redman MR#: [id number] : 1965 Acct:[id number] Age/Sex: 56 / F Adm Date: 2 Loc: Room: [address] [place] [address] Type: ADM IN Attending Dr: Hong Mcintosh [...] hypothyroidism on levothyroxine who was transferred from [facility] on 12/04 for abnormal blood [...] 1 g of calcium before transfer to [facility]. Today's creatinine is slightly better [...] BID.WITH.BFAST.LUNCH CINTIA Stop: 12/05/22 07:59 Last Admin: 12/05/21 11:55 Dose: 500 mg Magnesium Sulfate (Magnesium Sulf 2gm-*Swfi*) 2 gm in 50 mls @ 25 mls/hr IV DAILY PRN PRN Reason: Magnesium Level < 1.5 Stop: 12/04/22 10:15 Potassium Chloride 20 meq/ (Lactated Ringer's) 1,010 mls @ 75 mls/hr IV .[id number] [facility] Stop: 12/04/22 14:14 Last Admin: 12/05/21 01:34 Dose: 75 mls/hr Folic Acid 1 mg/ Dextrose 50.2 mls @ 100.4 mls/hr IV DAILY [facility] Stop: 12/04/22 13:59 Last Admin: 12/05/21 09:17 Dose: 100 mls/hr Thiamine HCl 200 mg/ Sodium (Chloride) 102 mls @ 204 mls/hr IV TID [facility] Stop: 12/04/22 21:59 Last Admin: 12/05/21 09:17 Dose: 204 mls/hr Levofloxacin (Levaquin) 750 mg in 150 mls @ 100 mls/hr IV Q48H [facility] Last Admin: 12/05/21 09:17 Dose: 100 mls/hr Levothyroxine Sodium (Levothyroxine 50 Mcg Tablet) 50 mcg PO DAILY.0630 [facility] Stop: 12/05/22 06:29 Last Admin: 12/05/21 06:55 Dose: Not Given Metoprolol Succinate (Metoprolol Succinate 100 Mg Tab.Er.24h) 100 mg PO DAILY [facility] Stop: 12/04/22 17:43 Last Admin: 12/05/21 09:17 Dose: 100 mg Omeprazole (Omeprazole 20 Mg Capsule.Dr) 20 mg PO DAILY [facility] Stop: 12/05/22 08:59 Last Admin: 12/05/21 09:17 Dose: 20 mg Potassium Chloride (Potassium Chloride Er 20 Meq Tab.Er.Prt) 20 meq PO DAILY PRN PRN Reason: Hypokalemia Stop: 12/04/22 10:15 Potassium Chloride (Potassium Chloride Er 20 Meq Tab.Er.Prt) 40 meq PO DAILY PRN PRN Reason: Hypokalemia Stop: 12/04/22 10:15 Sodium Bicarbonate (Sodium Bicarbonate 650 Mg Tablet) 1,300 mg PO TID.WITH.MEALS [facility] Stop: 12/04/22 13:34 Last Admin: 12/05/21 11:55 [...] Cloudy A Urine pH 5.5 Ur Specific [place] 1.013 Urine Protein 30 H Urine Glucose [...] <Electronically signed by MD Nilesh Oakley> 12/05/21 5143 [facility] Work Phone: 1(586) 156-936408-27-2022 History and physical note Author Hong Mcintosh [facility] December 04, 2021 9:07pm Note Date/Time December 04, 2021 9: 07pm [facility] [address] [place] [address] Hospitalist H&P Signed Patient: Juanita Redman MR#: [id number] : 1965 Acct:[id number] Age/Sex: 56 / F Adm Date: 2 Loc: Room: [address] [place] [address] Type: ADM IN Attending Dr: Hong Mcintosh DO Copies to: DO Hong Rose, DO~ HPI DATE OF EXAMINATION: 12/04/21 CHIEF COMPLAINT: weakness, passing out, lightheadedness. HISTORY OF PRESENT ILLNESS: This is a 56-year-old woman who presented to the [place] emergency room yesterday evening with complaints of [...] supposed to come get established with a records section supervisor in [place]. She also was supposed to see a high energy forming equipment operator because she has probably rheumatoid arthritis and she has had a rash on her back for many decades. She has a fullness in the supraclavicular regions on both right and the left side. She says that the [facility] told her that these were lipomas based [...] the age of 17. I gave her [id number] history. In terms of alcohol use she [...] except as mentioned elsewhere in the documentation. PMFSH Vaccinated for COVID-19?: No Medical History [...] % (Auto) 13.0 % (.) 12/04/21 11:47 Keith % (Auto) 13.9 % (.) 12/04/21 11:47 Eos % (Auto) 1.2 % (.) 12/04/21 11:47 Baso % (Auto) 0.4 % (.) 12/04/21 11:47 Neut # (Auto) 4.5 x10E3/uL (1.8-7.7) 12/04/21 11:47 Lymph # (Auto) 0.8 x10E3/uL (1.00-4.8) L 12/04/21 11:47 Keith # (Auto) 0.9 x10E3/uL (0.0-0.8) H 12/04/21 [...] <Electronically signed by Hong Mcintosh DO> 12/04/212106 [facility] Work Phone: Evaluation note* Diagnosis Onset Date [...] acute Urethral stenosis acute Vasovagal syncope acute [facility] Work Phone: Evaluation noteNo assessment information available [facility] Work Phone: Evaluation note* Diagnosis Onset Date Resolution Status GERD (gastroesophageal reflux disease) acute Hypertension acute Hypomagnesemia acute Hypothyroid acute Lupus acute Paroxysmal atrial fibrillation with RVR acute Rheumatoid arthritis acute Stress-induced cardiomyopathy acute Type 2 myocardial infarction acute [facility] Work Phone: Evaluation note* Diagnosis [...] cardiomyopathy acute Type 2 myocardial infarction acute [facility] Work Phone: History general Narrative - Reported* Type Description Date Medical History COPD Medical History HYPOTHYROIDISM Medical History ALCOHOL ABUSE Medical History SMOKER Medical History ANEMIA Medical History HYPOMAGNESEMIA Medical History HYPOCALCEMIA Medical History HYDRONEPHROSIS Surgical History X 2 Surgical History D&C X2 Surgical History LUMPECTOMY ON BOTH BREAST Surgical History 2 HEART ABLASIONS Hospitalization History SEE ABOVE Hospitalization History DEHYDRATION 12/2021 2,10E+07 Other Hospital Discharge instructions Additional Instructions Dietary recommendations: - Magic cup (or equivalent) [facility] Work Phone: Hospital Discharge instructions Additional Instructions Follow-up with your primary care doctor Return to ED if develop worsening symptoms or concerns Take your medications as [facility] Work Phone: Hospital Discharge instructionsAmbulatory Orders* Referral to Cardiology Location: None Selected * Referral to Rheumatology Location: None Selected [facility] Work Phone: Hospital Discharge instructionsAmbulatory Orders* Referral to Cardiology Location: None Selected [facility] Work Phone: InstructionsNot on filedocumented in this encounter [facility] Summary Purpose Family History Relationship Condition Age [...] and content) DATE CREATED AUTHOR 09/29/2017 [facility] DATE CREATED AUTHOR AUTHOR'S ORGANIZ ATION 01/07/2022 [facility] DATE CREATED AUTHOR AUTHOR'S ORGANIZ ATION 02/02/2022 [facility] DATE CREATED AUTHOR AUTHOR'S ORGANIZ ATION 04/28/[address] [facility] Care Teams (unrecognized sec tion [...] , Primary Care Provider Active Caden Jarrell , DO Emergency Provider Active Team Status: Active Member Role Status Dates Katie Velasquez ADVOCACY DIRECTOR BRINE PLANT OPERATOR-C Primary Care Provider Active Team Status: Inactive Member Role Status Dates Katie Velasquez ADVOCACY DIRECTOR BRINE PLANT OPERATOR-C Primary Care Provider, Attending Provider Active Start: September 28, 2023 End: September 28, 2023 Team Status: Inactive Member Role Status Dates Katie Velasquez ADVOCACY DIRECTOR BRINE PLANT OPERATOR-C Primary Care Provider, Attending Provider Active Start: December 27, 2023 End: December 27, 2023 Team Status: Inactive Member Role Status Dates Katie Velasquez APRN BRINE PLANT OPERATOR-C Primary Care Provider, Attending Provider Active Start: February 19, 2024 End: February 19, 2024 Goals (unrecognized section and content) Goals may be documented in a n alternate sectionNo InformationGoals may be documented in an alternate sectionGoals may be documented in an alternate sectionGoals may be documented in an alternate sectionNot on filedocumented as of this encounter REASON FOR VISIT (unrecogniz ed section and [...] BE BASED ON THE PRIMARY CLINICAL RECORDS. [employer] [facility]. provides no warranty or guarantee of the accuracy or completeness of information in this document.
[2024-06-13 10:46] LABS: PCO2 VBG 51.2 mmHg (40.0-52.0); pH VBG 7.172 (7.330-7.430)
[2024-06-13 10:57] LABS: Amylase 39 U/L (25-115)
[2024-06-13] MEDS: BUMETANIDE 10 MG in 0.9 % SODIUM CHLORIDE 160 ML 20 MG IV (11:03)
[2024-06-13 11:04] LABS: Influenza Virus A Antigen Negative; Influenza Virus B Antigen Negative; Internal Control Within Normal Limits; Respiratory Syncytial Virus Not Detected (NOT DETECTE); SARS-CoV-2 Ag NEGATIVE (NEGATIVE)
[2024-06-13] MEDS: ENOXAPARIN SODIUM 30 MG/0.3 ML SYRINGE SUBQ (11:09)
[2024-06-13] MEDS: LEVOFLOXACIN IN DEXTROSE 5 % 750 MG/150 ML PREMIX 100 MG IV (11:09)
[2024-06-13 11:10] LABS: Thyroid Stimulating Hormone 13.271 uIU/mL (0.358-3.740)
[2024-06-13 11:10] LABS: Base Excess ABG -9.6 mmol/L (-2.0-2.0); HCO3 ABG 19.5 mmol/L (22.0-26.0); PO2 ABG 80.5 mmHg (80.0-100.0)
[2024-06-13 11:11] LABS: Lactate/Lactic Acid 1.1 mmol/L (0.4-2.0)
[2024-06-13 11:11] LABS: Allen Test POSITIVE (POSITIVE); Liters per Minute 3; O2 Mode NC; Oxygen Saturation ABG 95.1 %; Puncture Site RR
[2024-06-13 11:12] LABS: ABG PCO2 57.5 mmHg (35.0-45.0); pH ABG 7.138 (7.350-7.450)
[2024-06-13] MEDS: IPRATROPIUM/ALBUTEROL SULFATE 3 ML AMPUL.NEB IH ×2 (11:12→16:22)
[2024-06-13 11:13] LABS: Ammonia 59 umol/L (11-32)
[2024-06-13 11:14] LABS: Troponin I High Sensitivity 77.7 pg/mL (4.0-51.3)
[2024-06-13] MEDS: PANTOPRAZOLE SODIUM 40 MG VIAL IV (11:14)
[2024-06-13] MEDS: SODIUM BICARBONATE 8.4 % 50 MEQ/50 ML SYRINGE IV (11:50)
[2024-06-13] MEDS: BUMETANIDE 1 MG/4 ML VIAL 2 MG IVP (12:42)
[2024-06-13] MEDS: VANCOMYCIN HCL 1,500 MG in 0.9 % SODIUM CHLORIDE 500 ML 250 MG IV (12:50)
[2024-06-13] MEDS: PIPERACILLIN SODIUM/TAZOBACTAM 3.375 GM in 0.9 % SODIUM CHLORIDE 50 ML IV (14:56)
[2024-06-13 15:07] LABS: Allen Test POSITIVE (POSITIVE); BIPAP Pressure 16/8; Base Excess ABG -8.6 mmol/L (-2.0-2.0); Fractionated Inspired Oxygen 35 %; HCO3 ABG 19.8 mmol/L (22.0-26.0); Minute Volume 9.3; O2 Mode BIPAP; Oxygen Saturation ABG 99.5 %; Puncture Site RR; Rate 12; Tidal Volume 466; Vent Mode ST
[2024-06-13 15:08] LABS: pH ABG 7.181 (7.350-7.450)
--- NOTE | 2024-06-13 17:19 | P.DS_ITS ---
DS: Providers Provider Date of admission: 06/13/24 09:56 Primary care physician: TAMMY WANG Consults: 06/13/24 09:44 Consult to Pharmacy Routine Consulting Provider: Reason for consultation: Please [place] me when Med Rec is Updated Has provider been notified: No Occupational Therapy Eval and Treat Routine Reason for consultation: Only if needed for Rehab Has provider been notified: No Physical Therapy Eval and Treat Routine Reason for consultation: Eval and Treat Has provider been notified: No DS: Diagnosis Discharge Diagnosis (1) Hypoxia: (2) Acute renal failure superimposed on chronic kidney disease: (3) Hypothermia: (4) CHF exacerbation: (5) Paroxysmal atrial fibrillation: Plan Admission findings: Hypothermia, uncontrolled hypertension, acute hypoxia with O2 sat of 85%, lactic acidosis, white blood cell count normal but significant left shift consistent with bacterial process, acute kidney injury, elevated LFTs, uncertain infectious source at this time but has led to severe sepsis, with metabolic acidosis , combined with resp acidosis Severe sepsis without clear etiology-start patient on broad-spectrum antibiotics, check ultrasound of abdomen, consider CT scan Acute hypoxic respiratory failure requiring supplemental oxygen secondary to acute combined congestive heart failure and severe sepsis-Bumex drip, repeat echocardiogram limited, serial troponins L Acute elevation in troponins - possible Type II Nstemi Acute kidney injury injury with a baseline creatinine of 1.84, admission creatinine of 3.36 which is 182.6% above baseline which resulted in stage II acute kidney injury Elevated liver function test likely secondary to passive congestion from the acute combined congestive heart failure-checking ultrasound Edema and erythema bilateral lower extremities, do ultrasound rule out DVT possible infectious source with cellulitis Hyponatremia secondary to the fluid overload-repeat testing Admission status: Patient admitted to the ICU with severe sepsis with hypothermia lactic acidosis tachycardia respiratory distress and acute hypoxia with acute kidney injury, medically necessary treatment will span 2 midnights. Inpatient status. DS: Summary Hospital Course Hospital Course: Patient seen and evaluated in the emergency room with increasing weakness and shortness of breath, found of acute combined congestive heart failure, patient's condition continued to deteriorate and was transferred up to the intensive care unit and pending transfer, when I saw patient in the emergency room, very obtunded, labored breathing, patient transferred up to the ICU more lab work was obtained showing a significant metabolic acidosis with a pH of 1 of 7.1 pCO2 mildly elevated at 59, with the hypothermia and lactic acidosis consistent with severe sepsis causing the acute combined congestive heart failure and also resulting in a likely NSTEMI type II, patient was given broad-spectrum antibiotics, started on Bumex drip initially at 1 mg/h and the recommendations of this pr internship increased to 2 mg an hour repeat ABG showed only minimal improvement in the pH, currently patient is accepted for transfer will be transf [facility] Time Spent with Patient Time attestation: Total time spent providing and/or coordinating discharge services: Exam Constitutional Vital Signs, click to edit/add: Last Vital Signs Temp 95.8 F L 06/13/24 16:00 Pulse 93 H 06/13/24 16:53 Resp 16 06/13/24 16:00 BP 102/62 06/13/24 16:00 Pulse Ox 93 L 06/13/24 16:53 O2 Del Method BIPAP 06/13/24 16:25 O2 Flow Rate 3 06/13/24 11:13 FiO2 30 06/13/24 16:53 Documenting provider has reviewed patient's vital signs: yes Common normals: apparent distress (Severe distress and obtunded) Chest Common normals: inspection of chest normal (Labored breathing) Respiratory Common normals: abnormal respiratory effort (Respiratory distress) Auscultation: rales, rhonchi and wheezes Cardio Common normals: regular rhythm Rate: tachycardic GI Common normals: soft to palpation; negative for Normal to inspection, nondistended, normoactive bowel sounds present (Morbidly obese) and tender (Diffusely tender) Extremity Common normals: abnormal to inspection (Erythema bilateral lower extremities with 3+ edema) DS: Data Data Completed and Pending Labs on day of discharge: Labs from last 24 hours 06/13/24 06/13/24 06/13/24 15:01 12:59 11:03 WBC RBC Hgb Hct MCV MCH MCHC RDW Plt Count MPV Neut % (Auto) Lymph % (Auto) [place] % (Auto) Eos % (Auto) Baso % (Auto) Neut # (Auto) Lymph # (Auto) [place] # (Auto) Eos # (Auto) Baso # (Auto) Abs Immat Gran (auto) Imm/Tot Granulo (auto) PT INR Puncture Site Rr Rr ABG pH 7.181 L* 7.138 L* ABG pCO2 53.0 H* 57.5 H* ABG pO2 120.0 H 80.5 ABG HCO3 19.8 L 19.5 L ABG O2 Saturation 99.5 95.1 ABG Base Excess -8.6 L -9.6 L Jagdeep Test Positive Positive VBG pH VBG pCO2 O2 Liters/Min 3 Minute Volume 9.[address] FiO2 35 Tidal Volume 466 BiPAP 16/8 Sodium Potassium Chloride Carbon Dioxide Anion Gap BUN Creatinine Est GFR ( Amer) Est GFR (Non-Af Amer) BUN/Creatinine Ratio Glucose Lactate Calcium Magnesium Total Bilirubin AST ALT Alkaline Phosphatase Ammonia Troponin I High Sens 78.0 H* NT-Pro-B Natriuret Pep Total Protein Albumin Globulin Albumin/Globulin Ratio Amylase Lipase TSH Thyroxine (T4) Urine Color Urine Clarity Urine pH Ur Specific [place] Urine Protein Urine Glucose (UA) Urine Ketones Urine Occult Blood Urine Nitrite Urine Bilirubin Urine Urobilinogen Ur Leukocyte Esterase Urine RBC Urine WBC Ur Squamous Epith Cells Urine Crystals Urine Bacteria Urine Casts Urine Mucus Ethanol Quant Influenza Type A Ag Influenza Type B Ag RSV Antigen SARS-CoV-2 Ag (CV2AG) 06/13/24 06/13/24 06/12/24 10:39 10:33 19:40 WBC RBC Hgb Hct MCV MCH MCHC RDW Plt Count MPV Neut % (Auto) Lymph % (Auto) [place] % (Auto) Eos % (Auto) Baso % (Auto) Neut # (Auto) Lymph # (Auto) [place] # (Auto) Eos # (Auto) Baso # (Auto) Abs Immat Gran (auto) Imm/Tot Granulo (auto) PT 13.3 H INR 1.29 Puncture Site ABG pH ABG pCO2 ABG pO2 ABG HCO3 ABG O2 Saturation ABG Base Excess Jagdeep Test VBG pH 7.172 L VBG pCO2 51.2 O2 Liters/Min Minute Volume Vent Mode FiO2 Tidal Volume BiPAP Sodium 128 L Potassium 4.8 Chloride 96 L Carbon Dioxide 18.4 L Anion Gap 18.4 BUN 39.0 H Creatinine 3.36 H Est GFR ( Amer) 17 L Est GFR (Non-Af Amer) 14 L BUN/Creatinine Ratio 11.6 Glucose 68 L Lactate 1.1 2.4 H* Calcium 8.2 L Magnesium 1.0 L Total Bilirubin 0.6 AST 20 ALT 11 L Alkaline Phosphatase 170 H Ammonia 59 H* Troponin I High Sens 77.7 H* 58.7 H* NT-Pro-B Natriuret Pep >67659.0 H* Total Protein 6.9 Albumin 2.7 L Globulin 4.2 Albumin/Globulin Ratio 0.6 Amylase 39 Lipase 36.0 TSH 13.271 H Thyroxine (T4) 2.20 L Urine Color Urine Clarity Urine pH Ur Specific [place] Urine Protein Urine Glucose (UA) Urine Ketones Urine Occult Blood Urine Nitrite Urine Bilirubin Urine Urobilinogen Ur Leukocyte Esterase Urine RBC Urine WBC Ur Squamous Epith Cells Urine Crystals Urine Bacteria Urine Casts Urine Mucus Ethanol Quant 33 Influenza Type A Ag Negative Influenza Type B Ag Negative RSV Antigen Not detected SARS-CoV-2 Ag (CV2AG) Negative 06/12/24 06/12/24 18:10 18:05 WBC 5.3 RBC 2.94 L Hgb 9.5 L Hct 30.2 L MCV 102.7 H MCH 32.3 MCHC 31.5 RDW 15.4 H Plt Count 188 MPV 9.3 L Neut % (Auto) 77.8 H Lymph % (Auto) 13.7 L [place] % (Auto) 7.0 Eos % (Auto) 0.2 L Baso % (Auto) 0.2 Neut # (Auto) 4.1 Lymph # (Auto) 0.7 L [place] # (Auto) 0.4 Eos # (Auto) 0.0 Baso # (Auto) 0.0 Abs Immat Gran (auto) 0.06 H Imm/Tot Granulo (auto) 1.1 H PT INR Puncture Site ABG pH ABG pCO2 ABG pO2 ABG HCO3 ABG O2 Saturation ABG Base Excess Jagdeep Test VBG pH VBG pCO2 O2 Liters/Min Minute Volume Vent Mode FiO2 Tidal Volume BiPAP Sodium Potassium Chloride Carbon Dioxide Anion Gap BUN Creatinine Est GFR ( Amer) Est GFR (Non-Af Amer) BUN/Creatinine Ratio Glucose Lactate Calcium Magnesium Total Bilirubin AST ALT Alkaline Phosphatase Ammonia Troponin I High Sens NT-Pro-B Natriuret Pep Total Protein Albumin Globulin Albumin/Globulin Ratio Amylase Lipase TSH Thyroxine (T4) Urine Color Yellow Urine Clarity Sl cloudy Urine pH 5.5 Ur Specific [place] 1.025 Urine Protein >=300 A Urine Glucose (UA) Negative Urine Ketones Negative Urine Occult Blood Trace-i Urine Nitrite Negative Urine Bilirubin Negative Urine Urobilinogen 0.2 Ur Leukocyte Esterase Negative Urine RBC 0-2 Urine WBC 2-5 A Ur Squamous Epith Cells Few A Urine Crystals None seen Urine Bacteria Moderate A Urine Casts None seen Urine Mucus None seen Ethanol Quant Influenza Type A Ag Influenza Type B Ag RSV Antigen SARS-CoV-2 Ag (CV2AG) Preliminary micro results at discharge 06/12/24 18:05 Urine Culture - Preliminary Urine Catheterized Pending - Specimen sent to [facility] Discharge Plan Discharge Disposition: [facility]
--- NOTE | 2024-06-13 17:40 | PC.NURSE ---
[facility] present. Report given. Patient care relinquished
--- NOTE | 2024-06-13 17:42 | PC.NURSE ---
Report called to Marjan potts
== END 2024-06-13 18:00 | disposition short-term general hospital (02) | DRG 871 ==
LOC: ER 06-13 09:00 → ICU 06-13 10:01
PROVIDERS: Nurse Practitioner Family; Admitting Provider Family Medicine; Emergency Provider Emergency Medicine; PCP Nurse Practitioner Family; Visit Provider Family Medicine
DX: A41.9 Sepsis, unspecified organism (principal); I21.A1 Myocardial infarction type 2; J96.01 Acute respiratory failure with hypoxia; I50.43 Acute on chronic combined systolic (congestive) and diastolic (congestive) heart failure; N17.9 Acute kidney failure, unspecified; I13.0 Hypertensive heart and chronic kidney disease with heart failure and stage 1 through stage 4 chronic kidney disease, or unspecified chronic kidney disease; L03.116 Cellulitis of left lower limb; L03.115 Cellulitis of right lower limb; E87.1 Hypo-osmolality and hyponatremia; N18.4 Chronic kidney disease, stage 4 (severe); E46 Unspecified protein-calorie malnutrition; R65.20 Severe sepsis without septic shock; I48.0 Paroxysmal atrial fibrillation; F17.200 Nicotine dependence, unspecified, uncomplicated; Z79.890 Hormone replacement therapy; Z79.899 Other long term (current) drug therapy; Z88.1 Allergy status to other antibiotic agents; Z88.8 Allergy status to other drugs, medicaments and biological substances; R29.6 Repeated falls; Z68.34 Body mass index [BMI] 34.0-34.9, adult
CPT/HCPCS: 36415; 36569; 36600; 51702; 71045; 76700; 80053; 80320; 81001; 82140; 82150; 82800; 82805; 83605; 83690; 83735; 83880; 84436; 84443; 84484; 85025; 85610; 87040; 87070; 87086; 87205; 87420; 87804; 87811; 93005; 93308; 93970; 94640; 94660; 94761; 96365; 96366; 96375; 99285; J1650; J1940; J2405; J2543; J3370; P9046

== ENCOUNTER 2024-08-20 11:10 | Emergency (ER) | payer OTHER, SELFPAY ==
[2024-08-20] VITALS (9 sets, daily range): BP systolic 106–156; BP diastolic 84–95; PULSE 72–108; TEMP 36.6; O2SAT 93–98; BMI 3796.6
--- NOTE | 2024-08-20 11:22 | ECG_ITS ---
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 Measurements Intervals Solo Rate: 101 P: -47322 NC: -19336 QRS: 54 QRSD: 76 T: 38 QT: 388 QTc: 446 Interpretive Statements Atrial flutter with variable AV conduction and premature ventricular or aberrantly conducted complexes abnormal ECG Compared to ECG 08/20/2024 11:19 No significant changes Electronically Signed On 08-21-2024 22:52:00 EDT by KAREN FRANCE M.D.
--- NOTE | 2024-08-20 11:23 | ECG_ITS ---
[facility] Test Date: 2024-08-20 Pat Name: ORESTES ALVARES Department: Room: - Gender: Female Pizza Chef: : 1965 Requested By: 1030 Order Number: [id number] Jamison MD: KAREN FRANCE M.D. Measurements Intervals [place]asper Rate: 102 P: -14542 MO: -40638 QRS: 33 QRSD: 78 T: 41 QT: 382 QTc: 441 Interpretive Statements Atrial flutter with variable ventricular response 9140 abnormal rhythm ECG Compared to ECG 06/12/2024 17:49:25 Atrial flutter has replaced atrial fibrillation Myocardial infarct finding no longer present Right-axis deviation no longer present Electronically Signed On 08-20-2024 17:55:28 EDT by KAREN FRANCE M.D.
--- NOTE | 2024-08-20 11:39 | ED.GENADUL1 ---
HPI HPI - General Adult General Chief complaint: Recheck/Abnormal Lab/Rx Stated complaint: ABNORMAL LABS Time Seen by Provider: 08/20/24 11:22 Source: patient Mode of arrival: ambulance History of Present Illness HPI narrative: 59-year-old female presents to the emergency department for low magnesium and low calcium. These were reportedly drawn on August 15 and the patient had dialysis this morning. She reportedly also gets dialysis on Mondays, and yesterday was Monday so she likely had dialysis yesterday as well. The patient is not able to give a good history. She does not seem to have any symptoms. Related Data Home Medications ?Medication ?Instructions ?Recorded ?Confirmed levothyroxine 100 mcg tablet 100 mcg PO DAILY 02/13/23 08/20/24 allopurinol 100 mg tablet 100 mg PO DAILY 08/20/24 08/20/24 amoxicillin 500 mg tablet mg 08/20/24 apixaban 2.5 mg tablet (Eliquis) mg 08/20/24 bumetanide 2 mg tablet 2 mg PO DAILY 08/20/24 08/20/24 carvedilol 12.5 mg tablet mg 08/20/24 cetirizine 5 mg tablet 5 mg PO DAILY PRN anxiety 08/20/24 08/20/24 cholecalciferol 06413 08/20/24 dicyclomine 10 mg capsule mg 08/20/24 diphenhydramine HCl 25 mg capsule 25 mg PO Q6H PRN itching 08/20/24 08/20/24 (Benadryl) escitalopram oxalate 20 mg tablet mg 08/20/24 folic acid 1 mg tablet 08/20/24 ipratropium 0.5 mg-albuterol 3 mg ml inhalation 08/20/24 (2.5 mg base)/3 mL nebulization soln lorazepam 0.5 mg tablet mg 08/20/24 midodrine 10 mg tablet mg 08/20/24 phenol 1.5 %-glycerin 33 % mucosal 1 spray mucous membrane Q2H 08/20/24 08/20/24 spray (Chloraseptic Max Sore Throat) potassium chloride 20 mEq oral meq 08/20/24 packet Previous Rx's ?Medication ?Instructions ?Recorded walker #1 ea 02/17/23 pantoprazole 40 mg tablet,delayed 40 mg PO DAILY #30 tabs 01/19/25 release (Protonix) Allergies Allergy/AdvReac Type Severity Reaction Status Date / Time cephalexin (From Keflex) Allergy swelling Verified 08/20/24 11:15 prednisone Allergy swelling Verified 08/20/24 11:15 Opioid HPI Opioid Management Most Recent Opioid Data: Last Pain Scale 5 06/12/24, 17:58 Last Pain Intensity 6 04/27/24, 10:24 Last ORT Total Score 4 06/13/24, 10:21 Last ORT Risk Category Moderate Risk 06/13/24, 10:21 Ur Phencyclidine Scrn, (NEGATIVE) Negative 02/13/23, 05:25 Review of Systems ROS Narrative A ten point review of systems is negative except as noted above. PFSH PFSH Medical History Hypoxia ?R09.02 - Hypoxemia (ICD-10) Acute renal failure superimposed on chronic kidney disease ?N17.9 - Acute kidney failure, unspecified (ICD-10) ?N18.9 - Chronic kidney disease, unspecified (ICD-10) Hypothermia ?T68.XXXA - Hypothermia, initial encounter (ICD-10) CHF exacerbation ?I50.9 - Heart failure, unspecified (ICD-10) Paroxysmal atrial fibrillation ?I48.0 - Paroxysmal atrial fibrillation (ICD-10) Chronic kidney disease, stage 4 (severe) ?N18.4 - Chronic kidney disease, stage 4 (severe) (ICD-10) Acute on chronic heart failure with preserved ejection fraction (HFpEF) ?I50.33 - Acute on chronic diastolic (congestive) heart failure (ICD-10) Ulcer of right heel ?L97.419 - Non-pressure chronic ulcer of right heel and midfoot with unspecified severity (ICD-10) Hepatorenal syndrome ?K76.7 - Hepatorenal syndrome (ICD-10) Pulmonary hypertension ?I27.20 - Pulmonary hypertension, unspecified (ICD-10) Valvular heart disease ?I38 - Endocarditis, valve unspecified (ICD-10) Fluid overload ?E87.70 - Fluid overload, unspecified (ICD-10) Hypothyroidism ?E03.9 - Hypothyroidism, unspecified (ICD-10) Hypomagnesemia ?E83.42 - Hypomagnesemia (ICD-10) Hypoalbuminemia due to protein-calorie malnutrition ?E88.09 - Other disorders of plasma-protein metabolism, not elsewhere classified (ICD-10) ?E46 - Unspecified protein-calorie malnutrition (ICD-10) Hypertension ?I10 - Essential (primary) hypertension (ICD-10) Atrial fibrillation ?I48.91 - Unspecified atrial fibrillation (ICD-10) Chronic renal disease ?N18.9 - Chronic kidney disease, unspecified (ICD-10) Hypokalemia ?E87.6 - Hypokalemia (ICD-10) Hypocalcemia ?E83.51 - Hypocalcemia (ICD-10) Accidental fall ?W19.XXXA - Unspecified fall, initial encounter (ICD-10) Fracture of nasal bone ?S02.2XXA - Fracture of nasal bones, initial encounter for closed fracture (ICD-10) Hyponatremia ?E87.1 - Hypo-osmolality and hyponatremia (ICD-10) Hyperammonemia ?E72.20 - Disorder of urea cycle metabolism, unspecified (ICD-10) Hepatic encephalopathy ?K76.82 - Hepatic encephalopathy (ICD-10) Tobacco abuse ?Z72.0 - Tobacco use (ICD-10) Frequent falls ?R29.6 - Repeated falls (ICD-10) Lactic acidosis ?E87.20 - Acidosis, unspecified (ICD-10) Acute on chronic heart failure ?I50.9 - Heart failure, unspecified (ICD-10) Congestive heart failure ?I50.9 - Heart failure, unspecified (ICD-10) GERD (gastroesophageal reflux disease) ?K21.9 - Gastro-esophageal reflux disease without esophagitis (ICD-10) Stomach ulcer ?K25.9 - Gastric ulcer, unspecified as acute or chronic, without hemorrhage or perforation (ICD-10) Sigmoid diverticulosis ?K57.30 - Diverticulosis of large intestine without perforation or abscess without bleeding (ICD-10) Caries involving multiple surfaces of tooth ?K02.9 - Dental caries, unspecified (ICD-10) Renal cyst, acquired, left ?N28.1 - Cyst of kidney, acquired (ICD-10) Anxiety and depression ?F41.9 - Anxiety disorder, unspecified (ICD-10) ?F32.A - Depression, unspecified (ICD-10) Atrial fibrillation ?I48.91 - Unspecified atrial fibrillation (ICD-10) Smoker ?F17.200 - Nicotine dependence, unspecified, uncomplicated (ICD-10) Kidney failure ?N19 - Unspecified kidney failure (ICD-10) Alcohol abuse ?F10.10 - Alcohol abuse, uncomplicated (ICD-10) Surgical History History of endometrial ablation ?Z98.890 - Other specified postprocedural states (ICD-10) H/O section ?Z98.891 - History of uterine scar from previous surgery (ICD-10) Status post breast biopsy ?Z98.890 - Other specified postprocedural states (ICD-10) History of lumpectomy of both breasts ?Z98.890 - Other specified postprocedural states (ICD-10) S/P ablation of atrial fibrillation ?Z98.890 - Other specified postprocedural states (ICD-10) ?Z86.79 - Personal history of other diseases of the circulatory system (ICD-10) Family History Father Family history of CHF (congestive heart failure) Family history of diabetes mellitus Family history of hypertension Family history of myocardial infarction Mother Family history of cancer Family history of diabetes mellitus Family history of hypertension Family history of myocardial infarction Brother Family history of hypertension Family history of myocardial infarction Other Family history of COPD (chronic obstructive pulmonary disease) Social History Within the past year, how often did you have a drink containing alcohol: 2-3 times a week Smoking status: Current every day smoker Non-prescribed substance use: denies use Previous occupational history: retired Highest level of school completed/degree received: some college, no degree Are you now , , , , never or living with a partner: In a typical week, how many times do you talk on the telephone with family, friends, or neighbors: 3 or more times per week How often do you get together with friends or relatives: 3 or more times per week Little interest or pleasure in doing things: not at all Feeling down, depressed, or hopeless: not at all Feel stressed/tense/nervous/anxious/difficulty sleeping: not at all Do you think of yourself as: straight/heterosexual Gender Identity: female Exam Narrative Exam Narrative: Nurses note and vital signs reviewed and patient is not hypoxic. General: The patient appears in no apparent distress. Patient is resting comfortably on cart. Skin: Warm, dry, no pallor noted. There is no rash noted. Head: Normocephalic, atraumatic Eye: Normal conjunctiva, no drainage Ears, Nose, Mouth, and Throat: oral mucosa is moist. Nares patent. Cardiovascular: Regular Rate and Rhythm Respiratory: Patient is in no distress, no accessory muscle use, lungs are clear to auscultation, no wheezing, rales or rhonchi Back: non-tender GI: Soft and nontender Musculoskeletal: The patient has no evidence of calf tenderness, no pitting edema, symmetrical pulses noted bilaterally Neurological: A&O, normal speech Psychiatric: Cooperative Constitutional Vital Signs, click to edit/add: Last Vital Signs Temp 97.8 F 08/20/24 11:15 Pulse 105 H 08/20/24 12:00 Resp 23 H 08/20/24 12:00 BP 106/84 08/20/24 12:01 Pulse Ox 96 08/20/24 12:00 O2 Del Method Room Air 08/20/24 11:15 Course Vital Signs Vital signs: Vital Signs Temperature 97.8 F 08/20/24 11:15 Pulse Rate 108 H 08/20/24 11:15 Respiratory Rate 18 08/20/24 11:15 Blood Pressure 127/95 H 08/20/24 11:15 Pulse Oximetry 98 08/20/24 11:15 Oxygen Delivery Method Room Air 08/20/24 11:15 Temperature 97.8 F 08/20/24 11:15 Pulse Rate 105 H 08/20/24 12:00 Respiratory Rate 23 H 08/20/24 12:00 Blood Pressure 106/84 08/20/24 12:01 Pulse Oximetry 96 08/20/24 12:00 Oxygen Delivery Method Room Air 08/20/24 11:15 Medical Decision Making MDM Narrative Medical decision making narrative: Magnesium was low at 0.9 and calcium low at 7.6. Case discussed with her client services vice president, Dr. Aguilar. He recommends 2 g of magnesium and 2 g of calcium in discharge. This is being accomplished. Differential Diagnosis Differential Diagnosis: Hypocalcemia, hypomagnesemia Lab Data Lab results reviewed: Yes I reviewed the patient's lab results Labs: Lab Results 08/20/24 Range/Units 11:33 WBC 5.2 (4.0-11.0) 10^3/uL RBC 2.64 L (4.20-5.40) 10^6/uL Hgb 7.8 L (12.0-16.0) g/dL Hct 24.2 L (36.0-48.0) % MCV 91.7 (81.0-99.0) fL MCH 29.5 (26.7-34.0) pg MCHC 32.2 (29.9-35.2) g/dL RDW 17.2 H (11.0-15.0) % Plt Count 169 (150-450) 10^3/uL MPV 9.5 (9.5-13.5) fL Neut % (Auto) 43.4 (43.0-75.0) % Lymph % (Auto) 31.6 (20.5-60.0) % [place] % (Auto) 12.2 H (1.7-12.0) % Eos % (Auto) 11.6 H (0.9-7.0) % Baso % (Auto) 0.8 (0.2-2.0) % Neut # (Auto) 2.2 (1.4-6.5) 10^3/uL Lymph # (Auto) 1.6 (1.2-3.8) 10^3/uL [place] # (Auto) 0.6 (0.3-0.8) 10^3/uL Eos # (Auto) 0.6 (0.0-0.7) 10^3/uL Baso # (Auto) 0.0 (0.0-0.1) 10^3/uL Abs Immat Gran (auto) 0.02 (0.00-0.03) 10^3/uL Imm/Tot Granulo (auto) 0.4 (0.0-0.5) % Sodium 129 L (136-145) mmol/L Potassium 3.7 (3.5-5.1) mmol/L Chloride 93 L (98-107) mmol/L Carbon Dioxide 32.0 (21.0-32.0) mmol/L Anion Gap 7.7 BUN 27.0 H (7.0-18.0) mg/dL Creatinine 2.29 H (0.55-1.02) mg/dL Est GFR ( Amer) 26 L (>=60 mL/min/1.73m^2) Est GFR (Non-Af Amer) 22 L (>=60 mL/min/1.73m^2) BUN/Creatinine Ratio 11.8 Glucose 102 (74-106) mg/dL Calcium 7.6 L (8.5-10.1) mg/dL Magnesium 0.9 L* (1.8-2.4) mg/dL ECG Data Attestation: I personally reviewed and interpreted this ECG as follows: (EKG on my interpretation shows atrial fibrillation with a rate of 101) Discharge Plan Discharge Chief Complaint: Recheck/Abnormal Lab/Rx Clinical Impression: Hypomagnesemia, Hypocalcemia Patient Disposition: Home, Self-Care Time of Disposition Decision: 12:42 Condition: Good Mode of Transportation: Private Vehicle Prescriptions / Home Meds: No Action pantoprazole [Protonix] 40 mg tablet,delayed release (DR/EC) 40 mg PO DAILY Qty: 30 11RF bumetanide 2 mg tablet 2 mg PO DAILY allopurinol 100 mg tablet 100 mg PO DAILY carvedilol 12.5 mg tablet ipratropium-albuterol 0.5 mg-3 mg(2.5 mg base)/3 mL solution for nebulization INHALATION amoxicillin 500 mg tablet potassium chloride 20 mEq packet lorazepam 0.5 mg tablet folic acid 1 mg tablet dicyclomine 10 mg capsule midodrine 10 mg tablet escitalopram oxalate 20 mg tablet Eliquis 2.5 mg tablet diphenhydramine HCl [Benadryl] 25 mg capsule 25 mg PO Q6H PRN (Reason: itching) cetirizine 5 mg tablet 5 mg PO DAILY PRN (Reason: anxiety) Chloraseptic Max Sore Throat 1.5-33 % spray,non-aerosol 1 spray mucous membrane Q2H Rx Instructions: leave on area for 15 seconds then spit out cholecalciferol 15836 levothyroxine 100 mcg tablet 100 mcg PO DAILY (DME) walker Misc See Rx Instructions .Route Qty: 1 0RF Rx Instructions: As directed Print Language: Peruvian Instructions: Hypocalcemia (ED), Hypomagnesemia (ED) Referrals: TAMMY WANG [Primary Care Provider, Unknown] - 1 week
[2024-08-20 11:40] LABS: Basophils Percent Auto 0.8 % (0.2-2.0); Eosinophils Absolute Auto 0.6 10^3/uL (0.0-0.7); Eosinophils Percent Auto 11.6 % (0.9-7.0); Hematocrit 24.2 % (36.0-48.0); Hemoglobin 7.8 g/dL (12.0-16.0); Immature Granulocytes Abs Auto 0.02 10^3/uL (0.00-0.03); Immature Granulocytes Pct Auto 0.4 % (0.0-0.5); Lymphocytes Absolute Auto 1.6 10^3/uL (1.2-3.8); Lymphocytes Percent Auto 31.6 % (20.5-60.0); Mean Corpuscular HGB Conc 32.2 g/dL (29.9-35.2); Mean Corpuscular Hemoglobin 29.5 pg (26.7-34.0); Mean Corpuscular Volume 91.7 fL (81.0-99.0); Mean Platelet Volume 9.5 fL (9.5-13.5); Monocytes Absolute Auto 0.6 10^3/uL (0.3-0.8); Monocytes Percent Auto 12.2 % (1.7-12.0); Neutrophils Absolute Auto 2.2 10^3/uL (1.4-6.5); Neutrophils Percent Auto 43.4 % (43.0-75.0); Platelet Count 169 10^3/uL (150-450); Red Blood Count 2.64 10^6/uL (4.20-5.40); Red Cell Distribution Width 17.2 % (11.0-15.0); White Blood Count 5.2 10^3/uL (4.0-11.0)
[2024-08-20 11:49] LABS: Anion Gap 7.7; BUN Creatinine Ratio 11.8; Calcium 7.6 mg/dL (8.5-10.1); Chloride 93 mmol/L (98-107); Estimated GFR (African America 26 (>=60 mL/min/1.73m^2); Estimated GFR (Non-African Ame 22 (>=60 mL/min/1.73m^2); Glucose 102 mg/dL (74-106); Potassium 3.7 mmol/L (3.5-5.1); Sodium 129 mmol/L (136-145)
[2024-08-20 11:55] LABS: Magnesium 0.9 mg/dL (1.8-2.4)
--- NOTE | 2024-08-20 12:19 | PC.NURSE ---
Sent from [place] for low magnesium level and low calcium blood levels. Patient awake and alert. Denies any discomfort.
[2024-08-20] MEDS: MAGNESIUM SULFATE IN WATER 2 GM/50 ML PREMIX IV (12:38)
[2024-08-20] MEDS: CALCIUM GLUC IN NACL, ISO-OSM 1 GM/50 ML PLAST..BAG IV ×2 (12:38→13:09)
== END 2024-08-20 16:37 | disposition home or self-care (01) ==
PROVIDERS: Emergency Provider Emergency Medicine
DX: E83.42 Hypomagnesemia (principal); E83.51 Hypocalcemia; Z99.2 Dependence on renal dialysis; F17.200 Nicotine dependence, unspecified, uncomplicated
CPT/HCPCS: 36415; 80048; 83735; 85025; 93005; 96365; 96368; 99285; J0613; J3475

== ENCOUNTER 2024-08-28 20:46 | Outpatient (REF) | payer OTHER, SELFPAY ==
--- OUTSIDE RECORDS SUMMARY | 2024-08-17 05:00 | XMS_ITS ---
Author Organization [facility] Address [address] [place] [phone] Care Team Providers Care Buffer Machine Name Role Phone RAFAEL AZAR Unavailable [phone] REASON FOR VISIT Acute on chronic hypoxic hypercapnic respiratory failure, Pulmonary Hypertension Encounters Encounter Location Date Provider Diagnosis [address] [phone] 08/17/2024 RAFAEL AZAR Acute on chronic hyp oxic respiratory failure J96.21 ; Acute on chronic respiratory failure with hypercapnia J96.22 ; Pulmonary hypertension, unspecified I27.20 and Congestive heart failure I50.9 Assessments Encounter Date Diagnosis (ICD Code) Assessment Notes Treatment Notes Treatment Clinical Notes Section Notes 08/17/2024 Acute on chronic hypoxic respiratory failure (ICD-10 - J96.21) 08/17/2024 Acute on chronic respiratory failure with hypercapnia (ICD-10 - J96.22) 08/17/2024 Pulmonary hypertension, unspecified (ICD-10 - I27.20) 08/17/2024 Congestive heart failure (ICD-10 - I50.9) Plan Of Treatment Next Appt Details Follow Up: 2 - 3 Days, Reaso n: Progress Notes * Andrea REDMANaDOB:[birth year] (59 yo F)Acc No.[id number]:08/17/2024 Progress Notes Patient: Matt TURNERAdamJuanita Provider: Joanna Azar MD :1965 A ge:59 Y S ex:Female Date:08/17/2024 Phone: Address:[address] [phone] Subjective: * Chief Complaints: * A cute on chronic hypoxic hypercapnic respiratory failurePulmonary Hypertension * HPI: C onstitutional: Continuing to see patient for pulmonary management. Evaluated patient at bedside with the respiratory therapist to discuss orders, pulmonary status, and any needs. Physical examination unchanged. Continue current orders at this time. Impression: Acute on chronic hypoxic hypercapnic respiratory failure Pulmonary Hypertension CHF Hx of tobacco abuse Hx of alcohol dependence Afib Plan: On RA, maintain saturations 92% or above DuoNeb Q6 PRN Refuses bipap or cpap therapy Here for PT, OT, ST, goal to go home Hemodialysis has been discontinued Will continue to monitor pulmonary status. * ROS: A ll Other Systems: Review of Systems (ROS) A ll others negative except those mentioned in HPI,See HPI for details. * Medical History: * Surgical History: * Hospitalization/Major Diagno stic Procedure: * Medications: Objective: * Vitals: * Examination: G eneral Examination: GENERAL APPEARANCE: i n no acute distress, well developed, well nourished. ORAL CAVITY: m ucosa moist. THROAT: n ormal. NECK/THYROID: n nuzhat supple, full range of motion. SKIN: w arm and dry. HEART: n o murmurs, regular rate and rhythm, S1, S2 normal.? LUNGS: c lear to auscultation bilaterally. EXTREMITIES: n o clubbing, cyanosis, or edema. ? Assessment: * Assessment: 1. A cute on chronic hypoxic respiratory failure - J96.21 (Primary) 2 . A cute on chronic respiratory failure with hypercapnia - J96.22 3 . P ulmonary hypertension, unspecified - I27.20 4 . C ongestive heart failure - I50.9 ? Plan: * Treatment: * Procedure Codes: * Follow Up: 2 - 3 Days * * Sign off status: Completed true * Provider: Joanna Azar MD Date: 0 08/17/2024 Generated for Markel paz/Elizabeth/Keriitting on: 0 08/28/2024 08:49 PM EDT History and Physical Notes * HPI (History of Present Illness) Category Sub-Category Detail Notes Category Not es Constitutional Continuing to see patient for pulmonary management. Evaluated patient at bedside with the respiratory therapist to discuss orders, pulmonary status, and any needs. Physical examination unchanged. Continue current orders at this time. Impression: Acute on chronic hypoxic hypercapnic respiratory failure Pulmonary Hypertension CHF Hx of tobacco abuse Hx of alcohol dependence Afib Plan: On RA, maintain saturations 92% or above DuoNeb Q6 PRN Refuses bipap or cpap therapy Here for PT, OT, ST, goal to go home Hemodialysis has been discontinued Will continue to monitor pulmonary status Examination Category Sub-Category Detail Notes Category Not es General Examination GENERAL APPEARANCE: in no ac kai distress, well developed, well nourished THROAT: normal NECK/THYROID: neck supple, full ra nge of motion HEART: no murmurs, regular rate and rhythm, S1, S2 normal LUNGS: clear to auscultatio n bilaterally SKIN: warm and dry EXTREMITIES: no clubbing, cyanosi s, or edema ORAL CAVITY: mucosa moist
--- OUTSIDE RECORDS SUMMARY | 2024-08-24 06:00 | XMS_ITS ---
Author Organization [facility] Address [address] [place] [phone] Care Team Providers Care Timber Cutter Name Role Phone RAFAEL AZAR Unavailable [phone] REASON FOR VISIT Acute on chronic hypoxic hypercapnic respiratory failure, Pulmonary Hypertension Encounters Encounter Location Date Provider Diagnosis [address] [phone] 08/24/2024 RAFAEL AZAR Acute on chronic hyp oxic respiratory failure J96.21 ; Acute on chronic respiratory failure with hypercapnia J96.22 ; Pulmonary hypertension, unspecified I27.20 and Congestive heart failure I50.9 Assessments Encounter Date Diagnosis (ICD Code) Assessment Notes Treatment Notes Treatment Clinical Notes Section Notes 08/24/2024 Acute on chronic hypoxic respiratory failure (ICD-10 - J96.21) 08/24/2024 Acute on chronic respiratory failure with hypercapnia (ICD-10 - J96.22) 08/24/2024 Pulmonary hypertension, unspecified (ICD-10 - I27.20) 08/24/2024 Congestive heart failure (ICD-10 - I50.9) Plan Of Treatment Next Appt Details Follow Up: 2 - 3 Days, Reaso n: Progress Notes * Nicko REDMANB:[birth year] (59 yo F)Acc No.[id number]:08/24/2024 Progress Notes Patient: Matt LANGSTONEDMUNDTomJuanita Provider: Joanna Azar MD :1965 A ge:59 Y S ex:Female Date:08/24/2024 Phone: Address:[address] [phone] Subjective: * Chief Complaints: * A cute on chronic hypoxic hypercapnic respiratory failurePulmonary Hypertension * HPI: C onstitutional: Continuing to see patient for pulmonary management. Rounded at bedside with the respiratory therapist. We discussed patients respiratory status and current orders. All concerns addressed. Continue current orders at this time. Impression: [...] * Provider: Joanna Azar MD Date: 0 08/24/2024 Generated for Markel paz/Elizabeth/eTdaviansmitting on: 0 08/28/2024 08:50 PM EDT History and Physical Notes * HPI (History of Present Illness) Category Sub-Category Detail Notes Category Not es Constitutional Continuing to see patient for pulmonary management. Rounded at bedside with the respiratory therapist. We discussed patients respiratory status and current orders. All concerns addressed. Continue current orders at this time. Impression: [...] General Examination GENERAL APPEARANCE: in no ac andreafski distress, well developed, well nourished THROAT: normal NECK/THYROID: neck supple, full ra nge of motion HEART: no murmurs, regular rate and rhythm, S1, S2 normal LUNGS: clear to auscultatio n bilaterally SKIN: warm and dry EXTREMITIES: no clubbing, cyanosi s, or edema ORAL CAVITY: mucosa moist
--- OUTSIDE RECORDS SUMMARY | 2024-08-28 20:49 | XMS_ITS | Encounter Summary ---
Author Organization [facility] Address [address] [place], [place] [id number] Care Team Providers Care Hog Operator Name Role Phone Curly Fitch DO, Charles P Primary Care Provider + Source Comments In the event this information is protected by the Federal Confidentiality of Alcohol and Drug AbusePatient Records regulations: The Federal rules restrict any use of the information to criminally investigate or prosecute any alcohol or drug abuse patient.[facility] Encounter Details Date Type Department Care Team (Latest Contact Info) Description 04/19/2018 H&P External-Non[facility]F Provider, External, VANNA Do not enter address information under generic External Provider. Social History Tobacco Use Types Packs/Day Years Used Date Smoking Tobacco: Never Assessed Comments Unknown Sex and Gender Information Value Date Recorded Sex Assigned at Not on file Legal Sex Female 2:24 PM EST Gender Identity Not on file Sexual Orientation Not on file documented as of this encounter Plan of Treatment Not on file documented as of this encounter Visit Diagnoses Not on filedocumented in this encounter Care Teams Hog Operator Relationship Specialty Start Date End Date Segundo Rawls Sr., DO PCP - General Family Medicine 04/18/18 documented as of this encounter
--- OUTSIDE RECORDS SUMMARY | 2024-08-28 20:50 | XMS_ITS | Encounter Summary ---
Author Organization [facility] tem Address [facility] [address] [place] [address] Care Team Providers Care Emd Special Education Teacher Name Role Phone Unavailable Primary Care Provider Unavailabl e Encounter Details Date Type Department Care Team (Late st Contact Info) Description 06/14/2024 Orders Only [facility] [address] [place] [phone] Transcribe, Orders Support User Pain (Primary Dx) Social History Tobacco Use Types Packs/Day Years Used Date Smoking Tobacco: Never Assessed Childcare Answer Date Recorded Childcare Unknown 09/19/2018 Employment Answer Date Recorded Employment Unknown 09/19/2018 Comments Unknown Sex and Gender Information Value Date Recorded Sex Assigned at Not on file Legal Sex Female 11:29 AM EDT Gender Identity Not on file Sexual Orientation Not on file documented as of this encounter Plan of Treatment Upcoming Encounters Date Type Department Care Team (Late Contact Info) Description 09/12/2024 2:30 PM EDT Appointment [facility] - CT Imaging [address] [place] [phone] documented as of this encounter Results * X-ray chest 1 view (06/13/2024 2:35 PM EST) us Scanning Provider External IMG DIAGNOSTIC IMAGIN G ORDERABLES Final Result * Ultrasound abdomen complete (06/13/2024 1:25 PM EST) us Scanning Provider External IMG US ORDERABLES Fin al Result * Vas venous duplex lwr bilateral (06/13/2024 1:05 PM EST) us Scanning Provider External CV VASCULAR ORDERABLE S Final Result MEDSTREAMING * X-ray chest 1 view (06/12/2024 6:10 PM EST) us Scanning Provider External IMG DIAGNOSTIC IMAGIN G ORDERABLES Final Result documented in this encounter Visit Diagnoses Diagnosis Pain- Primary Generalized pain documented in this encounter
--- OUTSIDE RECORDS SUMMARY | 2024-08-28 20:50 | XMS_ITS | Encounter Summary ---
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 Primary Care Provider Encounter Details Date Type Department Care Team (Late st Contact Info) Description 07/18/2024 Abstract [facility] [address] [place] [address] Unallocated, [facility], [address] [place], [place] [id number] Social History Tobacco Use Types Packs/Day Years Used Date Smoking Tobacco: Never Assessed Comments Unknown Sex and Gender Information Value Date Recorded Sex Assigned at Not on file Legal Sex Female 7:05 PM EDT Gender Identity Not on file Sexual Orientation Not on file documented as of this encounter Plan of Treatment Not on file documented as of this encounter Visit Diagnoses Not on filedocumented in this encounter Care Teams Gold And Silver Assayer Relationship Specialty Start Date End Date Katie Velasquez NP [address] [facility] [place] [address] [place] [address] PCP - General Family Medicine 01/16/24 documented as of this encounter
--- OUTSIDE RECORDS SUMMARY | 2024-08-28 20:50 | XMS_ITS ---
Author Organization [facility] tem Address [id number] 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 Name Role Phone Unavailable Primary Care Provider Unavailabl e Dialysis Access Sites Type Status Location Placement Date Removal Da te Hemodialysis Catheter Double 07/03/24 Cuffed Right Internal Jugular Active Right Neck (side) - Anterior 07/03/2024 Hemodialysis Catheter Triple 06/14/24 Right Internal Jugular Inactive Right Neck (side) - Anterior 06/14/2024 07/03/2024 Procedures Procedure Name Priority Date/Time Associated Diagnosis Comments DNR PHYSICIAN ORDER REPORT (SCANNED INTO EHR) 07/09/2024 8:12 AM EDT HEMODIALYSIS INPATIENT Routine 4:32 PM EDT IR [place] DIAL/CENT LINE > 5 YRS Routine 07/03/2024 9:00 AM EDT XR CHEST 1 VW Routine 07/03/2024 6:15 AM EDT CBC WITH AUTO DIFFERENTIAL Routine 07/03/2024 2:48 AM EDT PHOSPHORUS Routine 07/03/2024 2:48 AM EDT MAGNESIUM Routine 07/03/2024 2:48 AM EDT COMPREHENSIVE METABOLIC PANEL Routine 07/03/2024 2:48 AM EDT ECG 12-LEAD Routine 07/02/2024 10:43 PM EDT BRONCHOPULMONARY HYGIENE Routine 025 9:13 PM EDT HEMODIALYSIS INPATIENT Routine 5:49 PM EDT BLOOD GAS, ARTERIAL STAT 07/02/2024 4 :32 PM EDT XR CHEST 1 VW STAT 07/02/2024 4:20 PM EDT VENTILATION Routine 07/02/2024 4:00 PM EDT CYTOLOGY Routine 07/02/2024 1:04 PM EDT Mucus plug in respiratory tract BODY FLUID CELL COUNT Routine 07/02/2024 1:04 PM EDT Mucus plug in respiratory tract AFB CULTURE CONCENTRATED INCLUDES AFB SMEAR Routine 07/02/2024 1:04 PM EDT Mucus plug in respiratory tract LOWER RESP CULTURE SPUTUM CULTURE INC GRAM STAIN Routine 07/02/2024 1:04 PM EDT Mucus plug in respiratory tract FUNGAL CULTURE INCLUDES FUNGAL SMEAR Routine 07/02/2024 1:04 PM EDT Mucus plug in respiratory tract MD BRNCHSC W/BRNCL ALVEOLAR LAVAGE 07/02/2024 12:52 PM EDT Mucus plug in respiratory tract PROVATION BRONCHOSCOPY Routine 11:54 AM EDT PROTIME & INR Routine 07/02/2024 10:24 AM EDT POTASSIUM Routine 07/02/2024 10:24 AM EDT IONIZED MAGNESIUM Routine 07/02/2024 10: 24 AM EDT XR CHEST 1 VW Routine 07/02/2024 6:12 AM EDT VENTILATION Routine 07/02/2024 4:00 AM EDT CBC WITH AUTO DIFFERENTIAL Routine 07/02/2024 2:18 AM EDT PHOSPHORUS Routine 07/02/2024 2:18 AM EDT MAGNESIUM Routine 07/02/2024 2:18 AM EDT COMPREHENSIVE METABOLIC PANEL Routine 07/02/2024 2:18 AM EDT VENTILATION Routine 07/02/2024 12:00 AM EDT VENTILATION Routine 07/01/2024 8:00 PM EDT BRONCHOPULMONARY HYGIENE Routine 025 8:00 PM EDT VENTILATION Routine 07/01/2024 4:00 PM EDT IONIZED MAGNESIUM Routine 07/01/2024 2:5 0 PM EDT IONIZED CALCIUM Routine 07/01/2024 2:50 PM EDT VENTILATION Routine 07/01/2024 12:00 PM EDT BRONCHOPULMONARY HYGIENE Routine 025 12:00 PM EDT FL SWALLOW MOTILITY FUNCTION Routine 07/01/2024 11:05 AM EDT XR CHEST 1 VW Routine 07/01/2024 6:07 AM EDT VENTILATION Routine 07/01/2024 4:00 AM EDT BRONCHOPULMONARY HYGIENE Routine 025 4:00 AM EDT CBC WITH AUTO DIFFERENTIAL Routine 07/01/2024 3:03 AM EDT PHOSPHORUS Routine 07/01/2024 3:03 AM EDT MAGNESIUM Routine 07/01/2024 3:03 AM EDT COMPREHENSIVE METABOLIC PANEL Routine 07/01/2024 3:03 AM EDT VENTILATION Routine 07/01/2024 12:00 AM EDT BRONCHOPULMONARY HYGIENE Routine 025 12:00 AM EDT VENTILATION Routine 06/30/2024 8:00 PM EDT BRONCHOPULMONARY HYGIENE Routine 025 8:00 PM EDT VENTILATION Routine 06/30/2024 5:21 PM EDT VENTILATION Routine 06/30/2024 5:21 PM EDT VENTILATION Routine 06/30/2024 5:21 PM EDT POTASSIUM Add-On 06/30/2024 12:50 PM EDT XR CHEST 1 VW Routine 06/30/2024 6:46 AM EDT BRONCHOPULMONARY HYGIENE Routine 025 4:00 AM EDT CBC WITH AUTO DIFFERENTIAL Routine 06/30/2024 2:54 AM EDT PHOSPHORUS Routine 06/30/2024 2:54 AM EDT MAGNESIUM Routine 06/30/2024 2:54 AM EDT COMPREHENSIVE METABOLIC PANEL Routine 06/30/2024 2:54 AM EDT BRONCHOPULMONARY HYGIENE Routine 12:00 AM EDT BRONCHOPULMONARY HYGIENE Routine 025 11:34 PM EDT BRONCHOPULMONARY HYGIENE Routine 025 11:34 PM EDT BRONCHOPULMONARY HYGIENE Routine 025 11:34 PM EDT BRONCHOPULMONARY HYGIENE Routine 025 11:34 PM EDT BEDSIDE GLUCOSE Routine 06/29/2024 9:49 PM EDT BLOOD GAS, VENOUS STAT 06/29/2024 8:5 6 PM EDT XR CHEST 1 VW STAT 06/29/2024 8:07 PM EDT POTASSIUM Routine 06/29/2024 11:00 AM EDT CBC WITH AUTO DIFFERENTIAL Routine 06/29/2024 2:57 AM EDT PHOSPHORUS Routine 06/29/2024 2:57 AM EDT MAGNESIUM Routine 06/29/2024 2:57 AM EDT COMPREHENSIVE METABOLIC PANEL Routine 06/29/2024 2:57 AM EDT CBC WITH AUTO DIFFERENTIAL Routine 06/28/2024 1:51 AM EDT PHOSPHORUS Routine 06/28/2024 1:51 AM EDT MAGNESIUM Routine 06/28/2024 1:51 AM EDT COMPREHENSIVE METABOLIC PANEL Routine 06/28/2024 1:51 AM EDT HEPATITIS B CORE ANTIBODY, IGM Routine 06/27/2024 9:47 AM EDT CBC WITH AUTO DIFFERENTIAL Routine 06/27/2024 2:40 AM EDT PHOSPHORUS Routine 06/27/2024 2:40 AM EDT MAGNESIUM Routine 06/27/2024 2:40 AM EDT COMPREHENSIVE METABOLIC PANEL Routine 06/27/2024 2:40 AM EDT POTASSIUM Routine 06/26/2024 7:30 PM EDT FL SWALLOW MOTILITY FUNCTION Routine 06/26/2024 1:45 PM EDT POTASSIUM Routine 06/26/2024 11:30 AM EDT IONIZED MAGNESIUM Routine 06/26/2024 11: 30 AM EDT XR CHEST 1 VW Routine 06/26/2024 10:11 AM EDT CBC WITH AUTO DIFFERENTIAL Routine 06/26/2024 3:25 AM EDT PHOSPHORUS Routine 06/26/2024 3:25 AM EDT MAGNESIUM Routine 06/26/2024 3:25 AM EDT COMPREHENSIVE METABOLIC PANEL Routine 06/26/2024 3:25 AM EDT BRONCHOPULMONARY HYGIENE Routine 025 9:07 PM EDT BRONCHOPULMONARY HYGIENE Routine 025 9:07 PM EDT BRONCHOPULMONARY HYGIENE Routine 025 9:07 PM EDT RESP ARTERIAL LINE SETUP Routine 025 4:00 PM EDT HEMODIALYSIS INPATIENT Routine 4:00 PM EDT EXTUBATION Routine 06/25/2024 3:57 PM EDT RESP ARTERIAL LINE SETUP Routine 12:00 PM EDT RESP ARTERIAL LINE SETUP Routine 025 8:00 AM EDT XR CHEST 1 VW Routine 06/25/2024 6:09 AM EDT BLOOD GAS, ARTERIAL STAT 06/25/2024 4 :20 AM EDT CBC WITH AUTO DIFFERENTIAL Routine 06/25/2024 3:05 AM EDT PHOSPHORUS Routine 06/25/2024 3:05 AM EDT MAGNESIUM Routine 06/25/2024 3:05 AM EDT COMPREHENSIVE METABOLIC PANEL Routine 06/25/2024 3:05 AM EDT IONIZED MAGNESIUM Routine 06/24/2024 8:4 0 PM EDT IONIZED CALCIUM Routine 06/24/2024 8:40 PM EDT VENTILATION Routine 06/24/2024 4:00 PM EDT RESP ARTERIAL LINE SETUP Routine 025 4:00 PM EDT BLOOD GAS, ARTERIAL STAT 06/24/2024 2 :41 PM EDT BRONCHOPULMONARY HYGIENE Routine 025 2:00 PM EDT XR CHEST 1 VW Routine 06/24/2024 1:36 PM EDT VENTILATION Routine 06/24/2024 12:00 PM EDT RESP ARTERIAL LINE SETUP Routine 025 12:00 PM EDT VENTILATION Routine 06/24/2024 8:00 AM EDT BRONCHOPULMONARY HYGIENE Routine 025 8:00 AM EDT RESP ARTERIAL LINE SETUP Routine 025 8:00 AM EDT XR CHEST 1 VW Routine 06/24/2024 6:17 AM EDT BLOOD GAS, ARTERIAL STAT 06/24/2024 4 :59 AM EDT VENTILATION Routine 06/24/2024 4:00 AM EDT RESP ARTERIAL LINE SETUP Routine 025 4:00 AM EDT BRONCHOPULMONARY HYGIENE Routine 025 2:00 AM EDT CBC WITH AUTO DIFFERENTIAL Routine 06/24/2024 2:00 AM EDT PHOSPHORUS Routine 06/24/2024 2:00 AM EDT MAGNESIUM Routine 06/24/2024 2:00 AM EDT COMPREHENSIVE METABOLIC PANEL Routine 06/24/2024 2:00 AM EDT VENTILATION Routine 06/24/2024 12:00 AM EDT RESP ARTERIAL LINE SETUP Routine 025 12:00 AM EDT VENTILATION Routine 06/23/2024 8:00 PM EDT BRONCHOPULMONARY HYGIENE Routine 025 8:00 PM EDT RESP ARTERIAL LINE SETUP Routine 025 8:00 PM EDT VENTILATION Routine 06/23/2024 4:00 PM EDT RESP ARTERIAL LINE SETUP Routine 025 4:00 PM EDT BRONCHOPULMONARY HYGIENE Routine 025 2:00 PM EDT VENTILATION Routine 06/23/2024 12:00 PM EDT RESP ARTERIAL LINE SETUP Routine 025 12:00 PM EDT HEMOGLOBIN AND HEMATOCRIT, BLOOD Routine 06/23/2024 8:42 AM EDT VENTILATION Routine 06/23/2024 8:00 AM EDT BRONCHOPULMONARY HYGIENE Routine 025 8:00 AM EDT RESP ARTERIAL LINE SETUP Routine 025 8:00 AM EDT XR CHEST 1 VW Routine 06/23/2024 6:18 AM EDT VENTILATION Routine 06/23/2024 4:00 AM EDT RESP ARTERIAL LINE SETUP Routine 025 4:00 AM EDT CBC WITH AUTO DIFFERENTIAL Routine 06/23/2024 3:15 AM EDT PHOSPHORUS Routine 06/23/2024 3:15 AM EDT MAGNESIUM Routine 06/23/2024 3:15 AM EDT COMPREHENSIVE METABOLIC PANEL Routine 06/23/2024 3:15 AM EDT BRONCHOPULMONARY HYGIENE Routine 025 2:00 AM EDT HEMOGLOBIN AND HEMATOCRIT, BLOOD Routine 06/23/2024 2:00 AM EDT VENTILATION Routine 06/23/2024 12:00 AM EDT RESP ARTERIAL LINE SETUP Routine 025 12:00 AM EDT VENTILATION Routine 06/22/2024 8:00 PM EDT BRONCHOPULMONARY HYGIENE Routine 025 8:00 PM EDT RESP ARTERIAL LINE SETUP Routine 025 8:00 PM EDT HEMOGLOBIN AND HEMATOCRIT, BLOOD Routine 06/22/2024 6:21 PM EDT VENTILATION Routine 06/22/2024 4:00 PM EDT VENTILATION Routine 06/22/2024 12:00 PM EDT HEMOGLOBIN AND HEMATOCRIT, BLOOD Routine 06/22/2024 11:30 AM EDT IONIZED MAGNESIUM Routine 06/22/2024 10: 30 AM EDT POTASSIUM Routine 06/22/2024 10:30 AM EDT VENTILATION Routine 06/22/2024 8:00 AM EDT XR CHEST 1 VW Routine 06/22/2024 6:33 AM EDT CBC WITH AUTO DIFFERENTIAL Routine 06/22/2024 5:50 AM EDT BLOOD GAS, ARTERIAL STAT 06/22/2024 5 :02 AM EDT PHOSPHORUS Routine 06/22/2024 4:10 AM EDT MAGNESIUM Routine 06/22/2024 4:10 AM EDT COMPREHENSIVE METABOLIC PANEL Routine 06/22/2024 4:10 AM EDT VENTILATION Routine 06/22/2024 4:00 AM EDT RESP ARTERIAL LINE SETUP Routine 025 4:00 AM EDT TRANSFUSE RED BLOOD CELLS Routine 06/22/2024 2:19 AM EDT BRONCHOPULMONARY HYGIENE Routine 025 2:00 AM EDT HEMOGLOBIN AND HEMATOCRIT, BLOOD Routine 06/22/2024 12:15 AM EDT VENTILATION Routine 06/22/2024 12:00 AM EDT RESP ARTERIAL LINE SETUP Routine 025 12:00 AM EDT VENTILATION Routine 06/21/2024 8:00 PM EDT BRONCHOPULMONARY HYGIENE Routine 025 8:00 PM EDT RESP ARTERIAL LINE SETUP Routine 025 8:00 PM EDT HEMOGLOBIN AND HEMATOCRIT, BLOOD Routine 06/21/2024 6:30 PM EDT HEMODIALYSIS INPATIENT Routine 6:07 PM EDT VENTILATION Routine 06/21/2024 4:00 PM EDT RESP ARTERIAL LINE SETUP Routine 025 4:00 PM EDT BRONCHOPULMONARY HYGIENE Routine 025 2:00 PM EDT VENTILATION Routine 06/21/2024 12:00 PM EDT RESP ARTERIAL LINE SETUP Routine 025 12:00 PM EDT CROSSMATCH RBC Routine 06/21/2024 10:00 AM EDT TYPE AND SCREEN Routine 06/21/2024 10:00 AM EDT POTASSIUM Routine 06/21/2024 8:50 AM EDT HEMOGLOBIN AND HEMATOCRIT, BLOOD Routine 06/21/2024 8:50 AM EDT VENTILATION Routine 06/21/2024 8:00 AM EDT BRONCHOPULMONARY HYGIENE Routine 025 8:00 AM EDT RESP ARTERIAL LINE SETUP Routine 8:00 AM EDT XR CHEST 1 VW Routine 06/21/2024 7:31 AM EDT BLOOD GAS, ARTERIAL STAT 06/21/2024 5 :57 AM EDT VENTILATION Routine 06/21/2024 4:00 AM EDT RESP ARTERIAL LINE SETUP Routine 4:00 AM EDT CBC WITH AUTO DIFFERENTIAL Routine 06/21/2024 3:00 AM EDT PHOSPHORUS Routine 06/21/2024 3:00 AM EDT MAGNESIUM Routine 06/21/2024 3:00 AM EDT COMPREHENSIVE METABOLIC PANEL Routine 06/21/2024 3:00 AM EDT BRONCHOPULMONARY HYGIENE Routine 025 2:00 AM EDT VENTILATION Routine 06/21/2024 12:00 AM EDT RESP ARTERIAL LINE SETUP Routine 025 12:00 AM EDT HEMOGLOBIN AND HEMATOCRIT, BLOOD Routine 06/20/2024 11:20 PM EDT VENTILATION Routine 06/20/2024 8:00 PM EDT BRONCHOPULMONARY HYGIENE Routine 025 8:00 PM EDT RESP ARTERIAL LINE SETUP Routine 025 8:00 PM EDT HEMOGLOBIN AND HEMATOCRIT, BLOOD Routine 06/20/2024 5:31 PM EDT ULTRAFILTRATION INPATIENT Routine 06/20/2024 5:19 PM EDT VENTILATION Routine 06/20/2024 4:00 PM EDT VENTILATION Routine 06/20/2024 12:00 PM EDT LACTATE W/ REFLEX Routine 06/20/2024 8:5 8 AM EDT VENTILATION Routine 06/20/2024 8:00 AM EDT XR CHEST 1 VW Routine 06/20/2024 6:30 AM EDT VENTILATION Routine 06/20/2024 4:27 AM EDT VENTILATION Routine 06/20/2024 4:27 AM EDT VENTILATION Routine 06/20/2024 4:27 AM EDT VENTILATION Routine 06/20/2024 4:27 AM EDT VENTILATION Routine 06/20/2024 4:27 AM EDT VENTILATION Routine 06/20/2024 4:27 AM EDT BLOOD GAS, ARTERIAL STAT 06/20/2024 4 :22 AM EDT CBC WITH AUTO DIFFERENTIAL Routine 06/20/2024 2:20 AM EDT PHOSPHORUS Routine 06/20/2024 2:20 AM EDT MAGNESIUM Routine 06/20/2024 2:20 AM EDT COMPREHENSIVE METABOLIC PANEL Routine 06/20/2024 2:20 AM EDT PHOSPHORUS Routine 06/19/2024 2:30 PM EDT POTASSIUM Routine 06/19/2024 2:30 PM EDT IONIZED MAGNESIUM Routine 06/19/2024 2:3 0 PM EDT ULTRAFILTRATION INPATIENT Routine 06/19/2024 2:06 PM EDT XR CHEST 1 VW Routine 06/19/2024 8:11 AM EDT RESP ARTERIAL LINE SETUP Routine 025 4:00 AM EDT VENTILATION Routine 06/19/2024 4:00 AM EDT CBC WITH AUTO DIFFERENTIAL Routine 06/19/2024 2:20 AM EDT PHOSPHORUS Routine 06/19/2024 2:20 AM EDT MAGNESIUM Routine 06/19/2024 2:20 AM EDT COMPREHENSIVE METABOLIC PANEL Routine 06/19/2024 2:20 AM EDT BRONCHOPULMONARY HYGIENE Routine 2:00 AM EDT RESP ARTERIAL LINE SETUP Routine 12:00 AM EDT VENTILATION Routine 06/19/2024 12:00 AM EDT BRONCHOPULMONARY HYGIENE Routine 9:56 PM EDT BRONCHOPULMONARY HYGIENE Routine 9:56 PM EDT RESP ARTERIAL LINE SETUP Routine 8:00 PM EDT VENTILATION Routine 06/18/2024 8:00 PM EDT VENTILATION Routine 06/18/2024 4:00 PM EDT HEMODIALYSIS INPATIENT Routine 2:50 PM EDT VENTILATION Routine 06/18/2024 12:00 PM EDT BRONCHOPULMONARY HYGIENE Routine 11:58 AM EDT PROTIME & INR Routine 06/18/2024 8:20 AM EDT APTT Routine 06/18/2024 8:20 AM EDT VENTILATION Routine 06/18/2024 8:00 AM EDT XR CHEST 1 VW Routine 06/18/2024 6:22 AM EDT RESP ARTERIAL LINE SETUP Routine 4:00 AM EDT VENTILATION Routine 06/18/2024 4:00 AM EDT LIVER PANEL Routine 06/18/2024 3:10 AM EDT CBC WITH AUTO DIFFERENTIAL Routine 06/18/2024 3:10 AM EDT PHOSPHORUS Routine 06/18/2024 3:10 AM EDT MAGNESIUM Routine 06/18/2024 3:10 AM EDT COMPREHENSIVE METABOLIC PANEL Routine 06/18/2024 3:10 AM EDT RESP ARTERIAL LINE SETUP Routine 025 12:00 AM EDT VENTILATION Routine 06/18/2024 12:00 AM EDT PROTIME & INR Routine 06/17/2024 8:02 PM EDT APTT Routine 06/17/2024 8:02 PM EDT RESP ARTERIAL LINE SETUP Routine 025 8:00 PM EDT VENTILATION Routine 06/17/2024 8:00 PM EDT XR ABD NG TUBE PLACEMENT 1 VIEW Routine 06/17/2024 4:58 PM EDT IONIZED MAGNESIUM Routine 06/17/2024 4:5 4 PM EDT IONIZED CALCIUM Routine 06/17/2024 4:54 PM EDT PHOSPHORUS Routine 06/17/2024 4:54 PM EDT MAGNESIUM Routine 06/17/2024 4:54 PM EDT ELECTROLYTE PANEL Routine 06/17/2024 4:5 4 PM EDT VENTILATION Routine 06/17/2024 4:00 PM EDT VENTILATION Routine 06/17/2024 12:00 PM EDT MAGNESIUM Routine 06/17/2024 10:22 AM EDT ELECTROLYTE PANEL Routine 06/17/2024 10: 22 AM EDT PROTIME & INR Routine 06/17/2024 8:24 AM EDT APTT Routine 06/17/2024 8:24 AM EDT VENTILATION Routine 06/17/2024 8:00 AM EDT XR CHEST 1 VW STAT 06/17/2024 7:45 AM EDT MAGNESIUM Routine 06/17/2024 6:00 AM EDT ELECTROLYTE PANEL Routine 06/17/2024 6:0 0 AM EDT RESP ARTERIAL LINE SETUP Routine 025 4:00 AM EDT VENTILATION Routine 06/17/2024 4:00 AM EDT LIVER PANEL Routine 06/17/2024 2:00 AM EDT VANCOMYCIN, RANDOM Routine 06/17/2024 2: 00 AM EDT CBC WITH AUTO DIFFERENTIAL Routine 06/17/2024 2:00 AM EDT PHOSPHORUS Routine 06/17/2024 2:00 AM EDT MAGNESIUM Routine 06/17/2024 2:00 AM EDT COMPREHENSIVE METABOLIC PANEL Routine 06/17/2024 2:00 AM EDT MAGNESIUM Routine 06/17/2024 12:05 AM EDT ELECTROLYTE PANEL Routine 06/17/2024 12: 05 AM EDT RESP ARTERIAL LINE SETUP Routine 025 12:00 AM EDT VENTILATION Routine 06/17/2024 12:00 AM EDT RESP ARTERIAL LINE SETUP Routine 025 8:00 PM EDT VENTILATION Routine 06/16/2024 8:00 PM EDT PROTIME & INR Routine 06/16/2024 8:00 PM EDT APTT Routine 06/16/2024 8:00 PM EDT MAGNESIUM Routine 06/16/2024 5:11 PM EDT PHOSPHORUS Routine 06/16/2024 5:11 PM EDT ELECTROLYTE PANEL Routine 06/16/2024 5:1 1 PM EDT VENTILATION Routine 06/16/2024 4:00 PM EDT LIVER PANEL Routine 06/16/2024 12:06 PM EDT MAGNESIUM Routine 06/16/2024 12:06 PM EDT ELECTROLYTE PANEL Routine 06/16/2024 12: 06 PM EDT VENTILATION Routine 06/16/2024 12:00 PM EDT PROTIME & INR Routine 06/16/2024 8:25 AM EDT APTT Routine 06/16/2024 8:25 AM EDT VENTILATION Routine 06/16/2024 8:00 AM EDT XR CHEST 1 VW Routine 06/16/2024 6:30 AM EDT BLOOD GAS, ARTERIAL STAT 06/16/2024 4 :39 AM EDT RESP ARTERIAL LINE SETUP Routine 4:00 AM EDT VENTILATION Routine 06/16/2024 4:00 AM EDT VANCOMYCIN, RANDOM Routine 06/16/2024 3: 00 AM EDT LIVER PANEL Routine 06/16/2024 3:00 AM EDT CBC WITH AUTO DIFFERENTIAL Routine 06/16/2024 3:00 AM EDT PHOSPHORUS Routine 06/16/2024 3:00 AM EDT MAGNESIUM Routine 06/16/2024 3:00 AM EDT COMPREHENSIVE METABOLIC PANEL Routine 06/16/2024 3:00 AM EDT RESP ARTERIAL LINE SETUP Routine 025 12:00 AM EST VENTILATION Routine 06/16/2024 12:00 AM EST POTASSIUM Routine 06/16/2024 12:00 AM EST RESP ARTERIAL LINE SETUP Routine 025 8:00 PM EST VENTILATION Routine 06/15/2024 8:00 PM EST PROTIME & INR Routine 06/15/2024 8:00 PM EST APTT Routine 06/15/2024 8:00 PM EST MAGNESIUM Routine 06/15/2024 8:00 PM EST PHOSPHORUS Routine 06/15/2024 8:00 PM EST ELECTROLYTE PANEL Routine 06/15/2024 8:0 0 PM EST VENTILATION Routine 06/15/2024 4:00 PM EST BLOOD CULTURE STAT 06/15/2024 1:12 PM EST BLOOD CULTURE STAT 06/15/2024 1:12 PM EST MAGNESIUM Routine 06/15/2024 12:05 PM EST ELECTROLYTE PANEL Routine 06/15/2024 12: 05 PM EST VANCOMYCIN, RANDOM Routine 06/15/2024 12 :05 PM EST PROTIME & INR Routine 06/15/2024 12:05 PM EST APTT Routine 06/15/2024 12:05 PM EST VENTILATION Routine 06/15/2024 12:00 PM EST VENTILATION Routine 06/15/2024 8:00 AM EST XR CHEST 1 VW Routine 06/15/2024 6:32 AM EST RESP ARTERIAL LINE SETUP Routine 025 4:00 AM EST VENTILATION Routine 06/15/2024 4:00 AM EST BLOOD GAS, ARTERIAL STAT 06/15/2024 3 :45 AM EST LIVER PANEL Routine 06/15/2024 2:00 AM EST VANCOMYCIN, RANDOM Routine 06/15/2024 2: 00 AM EST CBC WITH AUTO DIFFERENTIAL Routine 06/15/2024 2:00 AM EST PHOSPHORUS Routine 06/15/2024 2:00 AM EST MAGNESIUM Routine 06/15/2024 2:00 AM EST COMPREHENSIVE METABOLIC PANEL Routine 06/15/2024 2:00 AM EST RESP ARTERIAL LINE SETUP Routine 12:00 AM EST VENTILATION Routine 06/15/2024 12:00 AM EST HEMOGLOBIN AND HEMATOCRIT, BLOOD Routine 06/15/2024 12:00 AM EST RESP ARTERIAL LINE SETUP Routine 8:00 PM EST VENTILATION Routine 06/14/2024 8:00 PM EST PHOSPHORUS Routine 06/14/2024 8:00 PM EST PROTIME & INR Routine 06/14/2024 8:00 PM EST APTT Routine 06/14/2024 8:00 PM EST MAGNESIUM Routine 06/14/2024 8:00 PM EST ELECTROLYTE PANEL Routine 06/14/2024 8:0 0 PM EST TRANSFUSE RED BLOOD CELLS Routine 06/14/2024 7:10 PM EST RESP ARTERIAL LINE SETUP Routine 025 6:31 PM EST RESP ARTERIAL LINE SETUP Routine 025 6:31 PM EST RESP ARTERIAL LINE SETUP Routine 025 6:31 PM EST ECHO COMPLETE WO CONTRAST Routine 06/14/2024 5:10 PM EST BLOOD GAS, ARTERIAL STAT 06/14/2024 4 :44 PM EST CROSSMATCH RBC Routine 06/14/2024 4:30 PM EST TYPE AND SCREEN Routine 06/14/2024 4:30 PM EST VENTILATION Routine 06/14/2024 4:00 PM EST PROTIME & INR Routine 06/14/2024 3:15 PM EST PHOSPHORUS Routine 06/14/2024 3:15 PM EST MAGNESIUM Routine 06/14/2024 3:15 PM EST ELECTROLYTE PANEL Routine 06/14/2024 3:1 5 PM EST HEMOGLOBIN AND HEMATOCRIT, BLOOD Routine 06/14/2024 3:[address] CHEST WO CONT Routine 06/14/2024 2:[address] NECK SOFT TISSUE WO CONT Routine 06/14/2024 2:[address] ABDOMEN AND PELVIS WO CONT Routine 06/14/2024 2:09 PM EST US RETROPERITONEAL COMPLETE Routine 06/14/2024 1:06 PM EST PROTEIN ELECTROPHORESIS, URINE Routine 06/14/2024 12:26 PM EST PROTEIN CREAT RATIO Routine 06/14/2024 1 2:26 PM EST URINALYSIS Routine 06/14/2024 12:26 PM EST URINE CULTURE Routine 06/14/2024 12:26 PM EST BLOOD GAS, VENOUS STAT 06/14/2024 12: 03 PM EST VENTILATION Routine 06/14/2024 12:00 PM EST BASIC METABOLIC PANEL STAT 06/14/2024 10:33 AM EST LIVER PANEL Routine 06/14/2024 10:33 AM EST CBC WITH AUTO DIFFERENTIAL STAT 06/14/2024 10:33 AM EST XR CHEST 1 VW STAT 06/14/2024 10:30 AM EST LOWER RESP CULTURE SPUTUM CULTURE INC GRAM STAIN STAT 06/14/2024 10:00 AM EST VENTILATION Routine 06/14/2024 9:55 AM EST VENTILATION Routine 06/14/2024 9:55 AM EST VENTILATION Routine 06/14/2024 9:55 AM EST VENTILATION Routine 06/14/2024 9:55 AM EST VENTILATION Routine 06/14/2024 9:55 AM EST VENTILATION Routine 06/14/2024 9:55 AM EST VENTILATION Routine 06/14/2024 9:55 AM EST REPEATED ABORH Routine 06/14/2024 9:30 AM EST XR CHEST 1 VW STAT 06/14/2024 9:09 AM EST CLINICAL PATHOLOGY BLOOD SMEAR REVIEW Add-On 06/14/2024 8:46 AM EST T4, FREE Routine 06/14/2024 8:00 AM EST TSH WITH REFLEX Add-On 06/14/2024 8:00 AM EST LDH Add-On 06/14/2024 8:00 AM EST HAPTOGLOBIN Add-On 06/14/2024 8:00 AM EST FOLATE Add-On 06/14/2024 8:00 AM EST VITAMIN B12 Add-On 06/14/2024 8:00 AM EST FERRITIN Routine 06/14/2024 8:00 AM EST IRON AND TIBC Routine 06/14/2024 8:00 AM EST GLOMERULAR BASEMENT MEMBRANE IGG AB Routine 06/14/2024 8:00 AM EST CYTOPLASMIC NEUTROPHILIC AB (ANCA), S Routine 06/14/2024 8:00 AM EST MATY SCREEN W/ REFLEX Routine 06/14/2024 8:00 AM EST FREE LIGHT CHAINS Routine 06/14/2024 8:0 0 AM EST SERUM IMMUNOFIXATION Routine 06/14/2024 8:00 AM EST PROTEIN ELECTROPHORESIS, SERUM Routine 06/14/2024 8:00 AM EST COMPLEMENT PROFILE (C3 AND C4) Routine 06/14/2024 8:00 AM EST IONIZED MAGNESIUM Routine 06/14/2024 5:2 3 AM EST VENTILATION Routine 06/14/2024 4:49 AM EST RETICULOCYTES Add-On 06/14/2024 2:45 AM EST HEPATITIS B SURFACE ANTIGEN Add-On 06/14/2024 2:45 AM EST HEPATITIS B SURFACE ANTIBODY QUANTITATION Add-On 06/14/2024 2:45 AM EST HEPATITIS B CORE ANTIBODY, TOTAL Add-On 06/14/2024 2:45 AM EST T4, FREE Routine 06/14/2024 2:45 AM EST TSH WITH REFLEX Routine 06/14/2024 2:45 AM EST CBC WITH AUTO DIFFERENTIAL Routine 06/14/2024 2:45 AM EST PHOSPHORUS Routine 06/14/2024 2:45 AM EST MAGNESIUM Routine 06/14/2024 2:45 AM EST COMPREHENSIVE METABOLIC PANEL Routine 06/14/2024 2:45 AM EST ECG 12-LEAD Timed 06/14/2024 12:44 AM EST CLINICAL PATHOLOGY REVIEW Routine 06/14/2024 12:00 AM EST CLINICAL PATHOLOGY REVIEW Routine 06/14/2024 12:00 AM EST TROP I, HIGH SENSITIVITY 1 HOUR STAT 06/13/2024 8:54 PM EST XR CHEST 1 VW STAT 06/13/2024 8:35 PM EST BIPAP/CPAP/AUTOPAP Routine 06/13/2024 8: 30 PM EST RESP PATHOGENS PANEL/SARS-COV-2 Routine 06/13/2024 8:25 PM EST MRSA PCR NASAL SWAB Routine 06/13/2024 8 :25 PM EST BLOOD GAS, VENOUS STAT 06/13/2024 8:0 5 PM EST BLOOD CULTURE STAT 06/13/2024 8:04 PM EST BLOOD CULTURE STAT 06/13/2024 8:03 PM EST PROTIME & INR Routine 06/13/2024 7:54 PM EST PHOSPHORUS Routine 06/13/2024 7:54 PM EST PROCALCITONIN Routine 06/13/2024 7:54 PM EST MAGNESIUM Routine 06/13/2024 7:54 PM EST LACTATE W/ REFLEX Routine 06/13/2024 7:5 4 PM EST B-TYPE NATRIURETIC PEPTIDE Routine 06/13/2024 7:54 PM EST COMPREHENSIVE METABOLIC PANEL STAT 06/13/2024 7:54 PM EST CBC WITH AUTO DIFFERENTIAL STAT 06/13/2024 7:54 PM EST TROPONIN I, HIGH SENSITIVITY STAT 06/13/2024 7:54 PM EST BEDSIDE GLUCOSE Routine 06/13/2024 6:39 PM EST XR CHEST 1 VW Routine 06/13/2024 2:35 PM EST Pain US ABDOMEN COMPLETE Routine 06/13/2024 1 :25 PM EST Pain VASC VENOUS DUPLEX LOWER BILATERAL Routine 06/13/2024 1:05 PM EST Pain XR CHEST 1 VW Routine 06/12/2024 6:10 PM EST Pain from Last 3 Months Allergies No known active allergies Medications ELIQUIS 2.5 mg tablet Take 1 tablet (2.5 mg total) by mouth in the morning and 1 tablet (2.5 mg total) before bedtime. 5 Active levothyroxine (SYNTHROID, LEVOTHROID) 100 MCG tablet Take 1 tablet (100 mcg total) by mouth in the morning. Active pantoprazole (PROTONIX) 40 mg EC tablet Take 1 tablet (40 mg total) by mouth every morning before breakfast. 5 Active carvediloL (COREG) 12.5 mg tabletIndicatio ns:hypertension Take 1 tablet (12.5 mg total) by mouth in the morning and 1 tablet (12.5 mg total) before bedtime. Indications: high blood pressure. 90 tablet 2 5 Active darbepoetin anai-polysorbat e (ARANESP) 60 mcg/0.3 mL syringeIndicati ons:anemia due to renal failure Inject 0.3 mL (60 mcg total) under the skin once a week Indications: anemia due to kidney failure. 0.3 mL 5 5 Active sennosides-docu sate sodium (SENOKOT-S) 8.6-50 mg Take 2 tablets by mouth as needed for constipation. 30 tablet 5 Active ipratropium-alb uteroL (DUONEB) 0.5 mg-3 mg(2.5 mg base)/3 mL nebulizerIndica tions:Acute respiratory failure with hypoxia ([facility]) Inhale 3 mL by nebulization every 4 (four) hours as needed for wheezing. 30 mL 2 5 Active midodrine (PROAMATINE) 10 mg tablet Take 1 tablet (10 mg total) by mouth as needed (give pre/mid during dialysis as needed for SBP <100). Active Active Problems Problem Noted Date Diagnosed Date Acute hypoxic respiratory failure 06/14/2024 Acute respiratory failure 06/14/2024 Mucus plug in respiratory tract 06/13/2024 Social History Tobacco Use Types Packs/Day Years Used Date Smoking Tobacco: Never Assessed Childcare Answer Date Recorded Childcare Unknown 09/19/2018 Employment Answer Date Recorded Employment Unknown 09/19/2018 Comments No Sex and Gender Information Value Date Recorded Sex Assigned at Not on file Legal Sex Female 11:29 AM EDT Gender Identity Not on file Sexual Orientation Not on file Last Filed Vital Signs Vital Sign Reading Time Taken Comments Blood Pressure 154/72 07/03/2024 5:00 PM EDT Pulse 99 07/03/2024 5:00 PM EDT Temperature 36.8 C (98.3 F) 07/03/2024 4:17 PM EDT Respiratory Rate 22 07/03/2024 5:00 PM EDT Oxygen Saturation 88% 07/03/2024 5:00 PM EDT Inhaled Oxygen Concentration - - Weight 69.4 kg (153 lb) 07/03/2024 4:17 PM EDT Height 167 cm (5' 5.75 ) 06/24/2024 8:40 AM EDT Body Mass Index 24.88 06/24/2024 8:40 AM EDT Results * DNR Physician Order Report (Scanned Into EHR) (07/09/2024 8:12 AM EDT) Narrative 07/09/2024 8:12 AM EDT Ordered by an unspecified provider. us Not In System Ref Prov OUTPATIENT REFERRAL ORDER SALMA Final Result * Hemodialysis inpatient (07/03/2024 4:32 PM EDT) Narrative Richa Chairez RN - 07/03/2024 4:32 PM EDT Richa Chairez RN 07/03/2024 4:37 PM Patient completed 3 hour dialysis treatment. Patient tolerated treatment fair. Pt. Started treatment on 2L via NC. Pt. changed to Bipap due to O2 stats dropping and HR increasing. Primary RN at bedside. Pt. O2 stats recovered and HR the remaining of treatment. Dr. Trotter notified. No news orders. No meds administered during treatment. CVC functioned well at BFR 450. Post BP-141/86 Post weight 64.9kg. Bed scale shows removal of 0.9 kg Removal goal was set for 1kg as tolerated. Report given to primary RN Katarina Trotter MD DIALYSIS ORDERABLES Final R esult * IR Tunneled dialysis/central line more than 5 years (07/03/2024 9:00 AM EDT) Anatomical Region Laterality Modality IR N/A X-Ray Angiograph y 07/03/2024 9:24 AM EDT Narrative 07/03/2024 9:26 AM EDT TUNNELED CATHETER PLACEMENT WITH ULTRASOUND GUIDANCE DATE: 07/03/2024 9:25 AM INDICATION: Ongoing need for hemodialysis ATTENDING: Dr. Gibson SEDATION: 50 mcg of fentanyl was given for pain control. Lidocaine with epinephrine 1% for skin and soft tissue local anesthesia. RADIATION DOSE: Automatic radiation exposure lowering techniques were utilized. All elements of maximal sterile barrier techniques followed including: cap and mask and sterile gown and sterile gloves and a large sterile sheet and hand hygiene and 2% chlorhexidine for cutaneous antisepsis. The total fluoroscopic time used during the procedure was 0.5 min, a total of 1 fluoroscopic spot images were obtained and saved in PACS , and the reference air kerma was 3 mGy. PROCEDURE: The procedure, risks, including technical failure, bleeding, infection, vessel injury, arrhythmia, loss of limb, and , and alternatives, were discussed with the patient and all questions were answered. Written informed consent obtained. Accompanying paperwork was verified for accuracy. Directed history and physical exam performed prior to the procedure. Medication reconciliation performed by nursing personnel. Procedure was performed using a cap, sterile gown, sterile gloves, a large sterile sheet, hand hygiene and 2% chlorhexidine for cutaneous antisepsis. The patient was positioned supine on the table and prepped and draped in usual sterile fashion. A critical pause was performed with assisting personnel just prior to the procedure with the patient's identity confirmed using 2 identifiers, confirming site and side. Ultrasound was used to demonstrate a patent right internal jugular vein and appropriate directional flow, with an image saved in the permanent medical record. 1% lidocaine with epinephrine was used for local anesthesia. A small skin incision was made with blunt dissection into the subcutaneous tissues. The vein was then punctured under real-time sonographic guidance. A wire was advanced in to the IVC. Attention was then turned to the anterior chest wall where the planned subcutaneous tunnel was anesthetized with additional 1% lidocaine with epinephrine. An incision was then made at the exit site. A tunneler was then used to tunnel from the catheter exit site to the neck incision site, pulling the catheter along this path from the exit site to the venotomy site. A peel-away sheath was placed over the guidewire. The catheter was inserted through the peel-away sheath and appropriately positioned under direct fluoroscopic guidance. The sheath was then removed. Catheter was secured in place with suture. Catheter function was tested, and both lumens were found to function well. Lumens of the catheter were flushed with anticoagulant. The venotomy site was closed with Dermabond. The patient tolerated the procedure well with no immediate complication Catheter used [place] Path 23 cm tunneled / cuffed catheter. IMPRESSION: Successful ultrasound and fluoroscopically guided placement of a tunneled hemodialysis catheter via the right internal jugular vein with the catheter tip terminating at the cavoatrial junction. The catheter is available for immediate use. Finalized by Linda Gibson MD on 07/03/2024 9:26 AM Procedure Note Linda Gibson MD - 07/03/2024 TUNNELED CATHETER PLACEMENT WITH ULTRASOUND GUIDANCE DATE: 07/03/2024 9:25 AM INDICATION: Ongoing need for hemodialysis ATTENDING: Dr. Gibson SEDATION: 50 mcg of fentanyl was given for pain control. Lidocaine withepinephrine 1% for skin and soft tissue local anesthesia. RADIATION DOSE: Automatic radiation exposure lowering techniques wereutilized. All elements of maximal sterile barrier techniques followedincluding: cap and mask and sterile gown and sterile gloves and a largesterile sheet and hand hygiene and 2% chlorhexidine for cutaneousantisepsis. The total fluoroscopic time used during the procedure was 0.5 min, a total of 1fluoroscopic spot images were obtained and saved in PACS , and thereference air kerma was 3 mGy. PROCEDURE: The procedure, risks, including technical failure, bleeding, infection,vessel injury, arrhythmia, loss of limb, and , and alternatives, werediscussed with the patient and all questions were answered. Writteninformed consent obtained. Accompanying paperwork was verified foraccuracy. Directed history and physical exam performed prior to the procedure. Medicationreconciliation performed by nursing personnel. Procedure was performed using a cap, sterile gown, sterile gloves, a largesterile sheet, hand hygiene and 2% chlorhexidine for cutaneous antisepsis.The patient was positioned supine on the table and prepped and draped inusual sterile fashion. A critical pause was performed with assisting personnel just prior to the procedure with the patient's identityconfirmed using 2 identifiers, confirming site and side. Ultrasound was used to demonstrate a patent right internal jugular veinand appropriate directional flow, with an image saved in the permanentmedical record. 1% lidocaine with epinephrine was used for localanesthesia. A small skin incision was made with blunt dissection into thesubcutaneous tissues. The vein was then punctured under real-time sonographic guidance.A wire was advanced in to the IVC. Attention was then turned to the anterior chest wall where the plannedsubcutaneous tunnel was anesthetized with additional 1% lidocaine withepinephrine. An incision was then made at the exit site. A tunneler wasthen used to tunnel from the catheter exit site to the neck incision site,pulling the catheter along this path from the exit site to the venotomy site. A peel-away sheath was placed over the guidewire. The catheter wasinserted through the peel-away sheath and appropriately positioned underdirect fluoroscopic guidance. The sheath was then removed. Catheter wassecured in place with suture. Catheter function was tested, and bothlumens were found to function well. Lumens of the catheter were flushed with anticoagulant.The venotomy site was closed with Dermabond. The patient tolerated the procedure well with no immediate complication Catheter used [place] Path 23 cm tunneled / cuffed catheter. IMPRESSION: Successful ultrasound and fluoroscopically guided placement of a tunneledhemodialysis catheter via the right internal jugular vein with thecatheter tip terminating at the cavoatrial junction. The catheter is available for immediate use. Finalized by Linda Gibson MD on 07/03/2024 9:26 AM Katarina Trotter MD IMG IR ORDERABLES Final Res ult * X-ray chest 1 view (07/03/2024 6:15 AM EDT) Only the most recent of24 resultswithin the time period is included. Anatomical Region Laterality Modality Body, Chest N/A Computed Radiogr aphy 07/03/2024 6:19 AM EDT Narrative 07/03/2024 6:22 AM EDT Clinical history: Shortness of breath Views: 1 Comparison: 07/02/2024 Findings/Impression: 1. Left pleural effusion with atelectasis. This is similar to the previous exam. Heart size is prominent. Double-lumen catheter overlies SVC. Single-lumen catheter was distal SVC near right atrium. 2. Vasculature prominent. 3. No pneumothorax. 4. In summary, findings consistent with increasing vascular congestion with pneumonia difficult to exclude appropriate clinical setting. Finalized by John Vega MD on 07/03/2024 6:22 AM Procedure Note John Vega MD - 07/03/2024 Clinical history: Shortness of breath Views: 1 Comparison: 07/02/2024 Findings/Impression: 1. Left pleural effusion with atelectasis. This is similar to theprevious exam. Heart size is prominent. Double-lumen catheter overliesSVC. Single-lumen catheter was distal SVC near right atrium. 2. Vasculature prominent. 3. No pneumothorax. 4. In summary, findings consistent with increasing vascular congestionwith pneumonia difficult to exclude appropriate clinical setting. Finalized by John Vega MD on 07/03/2024 6:22 AM Filomena Newman MD IMG DIAGNOSTIC IMAGING ORDER SALMA Final Result * (ABNORMAL) CBC auto differential (07/03/2024 2:48 AM EDT) Only the most recent of22 resultswithin the time period is included. White Blood Cells 8.1 4.0 - 11.0 X10E9/L 07/03/2024 3:18 AM EDT [facility] RBC count 2.45(L) 3.80 - 5.20 X10E12/L 07/03/2024 3:18 AM EDT [facility] Hemoglobin 7.8(L) 11.7 - 15.5 g/dL 07/03/2024 3:18 AM EDT [facility] Hematocrit 23.7(L) 35 - 47 % 07/03/2024 3:18 AM EDT [facility] MCV 97 80 - 100 fL 07/03/2024 3:18 AM EDT [facility] MCH 31.8 27 - 34 pg 07/03/2024 3:18 AM EDT [facility] MCHC 32.8 32 - 36 g/dL 07/03/2024 3:18 AM EDT [facility] RDW 18.3(H) 11.5 - 15.0 % 07/03/2024 3:18 AM EDT [facility] Platelets 330 150 - 450 X10E9/L 07/03/2024 3:18 AM EDT [facility] MPV 7.2 7 - 12 fL 07/03/2024 3:18 AM EDT [facility] % neutrophils 90.0 % 07/03/2024 3:18 AM EDT [facility] % lymphocytes 7.7 % 07/03/2024 3:18 AM EDT [facility] % monocytes 1.2 % 07/03/2024 3:18 AM EDT [facility] % eosinophils 0.5 % 07/03/2024 3:18 AM EDT [facility] % Basophils 0.6 % 07/03/2024 3:18 AM EDT [facility] Neutrophils Absolute (A) 7.3(H) 1.5 - 6.6 X10E9/L 07/03/2024 3:18 AM EDT [facility] Lymphocytes Absolute 0.6(L) 1.0 - 3.5 X10E9/L 07/03/2024 3:18 AM EDT [facility] Monocytes Absolute 0.1 0 - 0.9 X10E9/L 07/03/2024 3:18 AM EDT [facility] Eosinophils Absolute 0.0 0.0 - 0.4 X10E9/L 07/03/2024 3:18 AM EDT [facility] Basophils Absolute 0.0 0.0 - 0.2 X10E9/L 07/03/2024 3:18 AM EDT [facility] Blood / Unknown 07/03/2024 2 :48 AM EDT 07/03/2024 3:00 AM EDT us Nathaly Cristina MD LAB BLOOD ORDERABLES Final Resu lt Performing Organization Address City/[facility]/ZIP Co de Phone Number [facility] [address] [place] [address], [address] [address] * Phosphorus (07/03/2024 2:48 AM EDT) Only the most recent of27 resultswithin the time period is included. Phosphorus 3.6 2.4 - 4.9 mg/dL 07/03/2024 3:31 AM EDT [facility] PLASMA 07/03/2024 2:48 AM EDT 07/03/2024 3:00 AM EDT us Nathaly Cristina MD LAB BLOOD ORDERABLES Final Resu lt Performing Organization Address City/[facility]/ZIP Co de Phone Number [facility] [address] [place] [address], [address] [address] * Magnesium (07/03/2024 2:48 AM EDT) Only the most recent of31 resultswithin the time period is included. Magnesium 2.1 1.8 - 2.6 mg/dL 07/03/2024 3:31 AM EDT [facility] PLASMA 07/03/2024 2:48 AM EDT 07/03/2024 3:00 AM EDT us Nathaly Cristina MD LAB BLOOD ORDERABLES Final Resu lt [place] [facility] [address] [place] [address] * (ABNORMAL) Comprehensive metabolic panel (07/03/2024 2:48 AM EDT) Only the most recent of21 resultswithin the time period is included. Sodium 136 134 - 146 mmol/L 07/03/2024 3:31 AM EDT [facility] Potassium, Bld 4.5 3.5 - 5.0 mmol/L 07/03/2024 3:31 AM EDT [facility] Chloride 100 98 - 109 mmol/L 07/03/2024 3:31 AM EDT [facility] CO2 24 22 - 32 mmol/L 07/03/2024 3:31 AM EDT [facility] Anion gap 12 5 - 15 mmol/L 07/03/2024 3:31 AM EDT [facility] BUN 32(H) 5 - 27 mg/dL 07/03/2024 3:31 AM EDT [facility] Creatinine 2.02(H) 0.40 - 1.00 mg/dL 07/03/2024 3:31 AM EDT [facility] Comment:METHOD TRACEABLE TO IDMS STANDARD Glucose 131(H) 65 - 99 mg/dL 07/03/2024 3:31 AM EDT [facility] Calcium 9.8 8.5 - 10.5 mg/dL 07/03/2024 3:31 AM EDT [facility] Total Protein 7.4 6.0 - 8.0 g/dL 07/03/2024 3:31 AM EDT [facility] Albumin 4.2 3.2 - 5.3 g/dL 07/03/2024 3:31 AM EDT [facility] Alkaline Phosphatase 60 39 - 130 U/L 07/03/2024 3:31 AM EDT [facility] AST 9 0 - 41 U/L 07/03/2024 3:31 AM EDT [facility] ALT 6 0 - 31 U/L 07/03/2024 3:31 AM EDT [facility] Total bilirubin 1.2 0.3 - 1.2 mg/dL 07/03/2024 3:31 AM EDT [facility] eGFR (CKD-EPI)non-rac e dependent 28(L) >59 ml/min/1.7 3sq.m 07/03/2024 3:31 AM EDT [facility] Comment: Reported eGFR is based on the CKD-EPI 2020 equation that does not use a race coefficient. PLASMA 07/03/2024 2:48 AM EDT 07/03/2024 3:00 AM EDT us Nathaly Cristina MD LAB BLOOD ORDERABLES Final Resu lt Performing Organization Address City/[facility]/ZIP Co de Phone Number [facility] [address], [address] [place] [address] * ECG 12 lead (07/02/2024 10:43 PM EDT) Only the most recent of2 resultswithin the time period is included. 07/02/2024 10:4 3 PM EDT Narrative ROSARIO - 07/04/2024 4:21 PM EDT us Nathaly Cristina MD ECG ORDERABLES Final Result [facility] * Hemodialysis inpatient (07/02/2024 5:49 PM EDT) Narrative Abhijit Velasco RN - 07/02/2024 5:49 PM EDT Abhijit Velasco RN 07/02/2024 6:17 PM Juanita Redman completed 3 hr Hemodialysis on 07/02/24. Patient had difficulty breathing approximately 45 minutes into treatment. Switched from NC to Bi-Pap by RT. Treatment completed. UF goal met. Blood returned, lines flushed, and citrate locked. Report given to primary RN. Patient received Albumin 25 G during the procedure. Used right neck temporary catheter dialysis access which functioned well @ 300-350 BFR. Treatment was tolerated well with 0 kg weight removal, with planned target of 0 kg off. Post wt = 73.1 kg. Post BP = 137/65, HR = 99. More information per Flowsheets & MAR. - Abhijit Velasco RN, Dialysis 07/02/24 5:49 PM us Katarina Trotter MD DIALYSIS ORDERABLES Final R esult * (ABNORMAL) Blood Gas, Arterial (07/02/2024 4:32 PM EDT) Only the most recent of10 resultswithin the time period is included. Sample Type ARTERIAL 07/02/2024 4:48 PM EDT [facility] Body Temp 37.0 37.0 C 07/02/2024 4:48 PM EDT [facility] pH 7.252(L) 7.350 - 7.450 07/02/2024 4:48 PM EDT [facility] PCO2 52.7(H) 35 - 45 MMHG 07/02/2024 4:48 PM EDT [facility] PO2 66(L) 80 - 100 MMHG 07/02/2024 4:48 PM EDT [facility] Base,Deficit 4.0(H) 0.0 - 2.0 MMOL/L 07/02/2024 4:48 PM EDT [facility] Portable HCO3 23.2 22 - 26 MMOL/L 07/02/2024 4:48 PM EDT [facility] % O2 Sat 89.0(L) >90 % 07/02/2024 4:48 PM EDT [facility] Jagdeep's Test NA 07/02/2024 4:48 PM EDT [facility] SPO2 91 % 07/02/2024 4:48 PM EDT [facility] Sample Site RRad 07/02/2024 4:48 PM EDT [facility] Insp. O2 Conc. 28 % 07/02/2024 4:48 PM EDT [facility] Oxygen Source NPPV 07/02/2024 4:48 PM EDT [facility] Artrial Blood Specimen 07/02/2024 4:32 PM EDT 07/02/2024 4:48 PM EDT us Cristy Hampton MD LAB BLOOD ORDERABLES Final R esult [facility] [place] [address] * Cytology (07/02/2024 1:04 PM EDT) Bronchoalveolar Lavage Structure of lower lobe of left lung / Unknown 07/02/2024 1:04 PM EDT Comment:Pre-op diagnosis: Mucus plug in respiratory tract [T17.998A] Narrative COPATH - 07/03/2024 4:31 PM EDT [facility] [address] [place] [address] Cytology Consultation Patient Name:JUANITA REDMAN:1965 (Age: 59)Gender:FTaken:07/02/2024Reported:07/03/2024 16:31Physician(s):Quintin Forman M.D. ([phone])Copy To: Rec. #:[id number]: #[id number] Final Cytologic Diagnosis Lung, left lower lobe, bronchoalveolar lavage: No malignant cells identified. ao/07/03/2024 Interpretation [place] [address], License number: [id number].Electronically Signed Out By Earl Boone MD Clinical History Mucus plug in respiratory tract [T17.998A]. Acute hypoxic respiratory failure (CMS-HCC) [J96.01]. Gross Description Received was 5ml of clear colorless fluid unfixed labeled as [place], lung, left lower lobe, BAL . CytoLyt added in lab. Unable to obtain cellblock, ThinPrep made. 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 Gram Stain Result 1 to 9 WHITE BLOOD CELLS/LPF 07/02/2024 10:56 PM EDT [facility] Gram Stain Result 10 to 24 SQUAMOUS EPITHELIAL CELLS/LPF 07/02/2024 10:56 PM EDT [facility] Gram Stain Result 0 CILIATED EPITHELIAL CELLS/LPF 07/02/2024 10:56 PM EDT [facility] Gram Stain Result MANY GRAM POSITIVE COCCI 07/02/2024 10:56 PM EDT [facility] Gram Stain Result FEW GRAM NEGATIVE RODS 07/02/2024 10:56 PM EDT [facility] Gram Stain Result FEW GRAM NEGATIVE DIPLOCOCCI(A) 07/02/2024 10:56 PM EDT [facility] Gram Stain Result RARE YEAST 07/02/2024 10:56 PM EDT [facility] Culture MANY STAPHYLOCOCCUS AUREUS METHICILLIN RESISTANT(A) 07/04/2024 10:01 AM EDT [facility] Culture ALONG WITH MANY NORMAL ORAL JEET 07/04/2024 10:01 AM EDT [facility] Bronchoalveolar Lavage Structure of lower lobe of left lung / Unknown 07/02/2024 1:04 PM EDT Comment:Pre-op diagnosis: Mucus plug in respiratory tract [T17.998A] Narrative Organism Antibiotic Method Susceptibility Staphylococcus Aureus Cefazolin VARSHA METHOD Resistant (deduced) Staphylococcus Aureus Clindamycin VARSHA METHOD 0.25: Susceptible Staphylococcus Aureus Oxacillin VARSHA METHOD >=4: Resistant Staphylococcus Aureus TRIMETH/SULFAMETHOXAZOLE VARSHA MET HOD <=0.5/9.5: Susceptible Staphylococcus Aureus Vancomycin VARSHA METHOD 1: Susceptible Staphylococcus Aureus Doxycycline VARSHA METHOD <=0.5: Susceptible Comment:CLIA ID [id number] us Quintin Forman MD MICROBIOLOGY - GENERAL ORDERABLE S Final Result [facility] [address], [address] [place] [address] * (ABNORMAL) Fungal culture includes fungal smear (07/02/2024 1:04 PM EDT) Fungal smear NO FUNGAL ELEMENTS SEEN ON DIRECT SMEAR 07/03/2024 9:25 AM EDT [facility] Culture MABLE ALBICANS(A) 07/07/2024 2:50 PM EDT [facility] Bronchoalveolar Lavage Structure of lower lobe of left lung / Unknown 07/02/2024 1:04 PM EDT Comment:Pre-op diagnosis: Mucus plug in respiratory tract [T17.998A] us Quintin Forman MD MICROBIOLOGY - GENERAL ORDERABLE S Final Result Performing Organization Address [facility] Co de Phone Number [facility] [address] [place] [address], [address] [place] [address] * Body Fluid cell count with differential (07/02/2024 1:04 PM EDT) Specimen type BRONCHOALVEOLAR LAVAGE 07/02/2024 5:17 PM EDT [facility] Comment: LEFT LUNG, LOWER LOBE Fluid neutrophils 18 % 025 7:26 PM EDT [facility] Fluid lymphocyte 3 % 07/03/19 25 7:26 PM EDT [facility] Macrophages 79 % 07/02/2024 7:26 PM EDT [facility] Nucleated cell ct 76 /uL 025 7:26 PM EDT [facility] Fluid RBC 220 /uL 07/02/2024 7:26 PM EDT [facility] Fluid color YELLOW 07/02/2024 7:26 PM EDT [facility] Fluid clarity HAZY 07/02/2024 7:26 PM EDT [facility] Body fluid comment Interpre tation-------- 07/03/2024 5:44 AM EDT [facility] Comment: Reference values for this fluid type are undefined, as fluid accumulation is considered abnormal. Assorted lining cells present. Corrected on 07/03 AT 0544: Previously reported as Interpretation Reference values for this fluid type are undefined, as fluid accumulation is considered abnormal. Bronchoalveolar Lavage Structure of lower lobe of left lung / Unknown 07/02/2024 1:04 PM EDT Comment:Pre-op diagnosis: Mucus plug in respiratory tract [T17.998A] Quintin Forman MD BODY FLUIDS AND STOOLS ORDERABLE S Edited Result - Final Performing Organization Address [facility] Co de Phone Number [facility] [facility] [address] [facility], [address] [place] [address] * Bronchoscopy Report (07/02/2024 11:54 AM EDT) Narrative SYSTEMGENERATED, DOCUMENTATION - 07/02/2024 11:54 AM EDT This order has been auto-finalized for image and report archival in PACs. *For full report details, please reach out to your physician. This image is visible to you in MyChart.* us Quintin Forman MD IMG OR IMG ORDERABLES Final Resu lt * Ionized magnesium (07/02/2024 10:24 AM EDT) Only the most recent of8 resultswithin the time period is included. Magnesium, ionized 0.71 0.45 - 0.74 mmol/L 07/02/2024 10:49 AM EDT [facility] Comment:NEW REFERENCE RANGE PLASMA 07/02/2024 10:2 4 AM EDT 07/02/2024 10:39 AM EDT Nathaly Cristina MD LAB BLOOD ORDERABLES Final Resu lt Performing Organization Address City/[facility]/ZIP Co de Phone Number [facility] [address] [place] [address], [address] [place] [address] * (ABNORMAL) Protime & INR (07/02/2024 10:24 AM EDT) Only the most recent of11 resultswithin the time period is included. Protime 13.5(H) 9.8 - 13.2 sec 07/02/2024 10:51 AM EDT [facility] Inr 1.2 0.9 - 1.2 07/02/2024 10:51 AM EDT [facility] PLASMA 07/02/2024 10:2 4 AM EDT 07/02/2024 10:40 AM EDT us Kvng Hayes MD LAB BLOOD ORDERABLES Final Result Performing Organization Address City/[facility]/ZIP Co de Phone Number [facility] [address] [place] [id number] * Potassium (07/02/2024 10:24 AM EDT) Only the most recent of9 resultswithin the time period is included. Potassium, Bld 4.2 3.5 - 5.0 mmol/L 07/02/2024 11:12 AM EDT [facility] PLASMA 07/02/2024 10:2 4 AM EDT 07/02/2024 10:39 AM EDT us Nathaly Cristina MD LAB BLOOD ORDERABLES Final Resu lt [facility] [address] [place] [address], [facility] [address] [place] [address] * (ABNORMAL) Ionized calcium (07/01/2024 2:50 PM EDT) Only the most recent of3 resultswithin the time period is included. Calcium, ionized 5.6(H) 4.5 - 5.3 mg/dL 07/01/2024 3:10 PM EDT [facility] PLASMA 07/01/2024 2:50 PM EDT 07/01/2024 3:02 PM EDT Danny Grey MD LAB BLOOD ORDERABLES Fin al Result [facility] [address], [address] [place] [address] * Fluoroscopy swallow motility function (07/01/2024 11:05 AM EDT) Only the most recent of2 resultswithin the time period is included. Anatomical Region Laterality Modality Chest, Abdomen, Body Radio Fluor oscopy 07/01/2024 11:1 0 AM EDT Narrative 07/01/2024 11:36 AM EDT STUDY: Video fluoroscopic swallow study CLINICAL HISTORY: Oral pharyngeal dysphagia, difficulty swallowing COMPARISON: 06/26/2024 FINDINGS: Video fluoroscopic swallow study was performed in conjunction with members of speech pathology. Barium contrast materials of multiple consistencies were administered. Fluoroscopic reference air kerma was 4.0 mGy. Multiple video fluoroscopic images. Zero fluoroscopic spot films. There is a right-sided central line. There is no aspiration or penetration demonstrated with the tested substances including the thin liquid consistency, the applesauce, fruit, and the cracker. IMPRESSION: * No aspiration or penetration demonstrated. * Recommend correlation with dedicated speech pathology report for additional details and recommendations. Approved by Resident Edson Thorpe MD on 07/01/2024 11:10 AM Hilda Jade MD have personally reviewed the image(s) and agree with and/or edited the report Finalized by Hilda Peck MD on 07/01/2024 11:36 AM Procedure Note Hilda Peck MD - 07/01/2024 STUDY: Video fluoroscopic swallow study CLINICAL HISTORY: Oral pharyngeal dysphagia, difficulty swallowing COMPARISON: 06/26/2024 FINDINGS: Video fluoroscopic swallow study was performed in conjunction with membersof speech pathology. Barium contrast materials of multiple consistencieswere administered. Fluoroscopic reference air kerma was 4.0 mGy. Multiplevideo fluoroscopic images. Zero fluoroscopic spot films. There is a right-sided central line. There is no aspiration or penetrationdemonstrated with the tested substances including the thin liquidconsistency, the applesauce, fruit, and the cracker. IMPRESSION: * No aspiration or penetration demonstrated. * Recommend correlation with dedicated speech pathology report foradditional details and recommendations. Approved by Resident Edson Thorpe MD on 07/01/2024 11:10 AM I, Hilda Peck MD have personally reviewed the image(s) and agree withand/or edited the report Finalized by Hilda Peck MD on 07/01/2024 11:36 AM us Barrington Johnston MD IMG FLUOROSCOPY ORDERABLES Fin al Result * Bedside Glucose *Place/Obtain serum glucose if >500 per glucometer. (06/29/2024 9:49 PM EDT) Only the most recent of2 resultswithin the time period is included. Bedside glucose 95 65 - 99 mg/dL 06/29/2024 10:22 PM EDT [facility] Blood / Unknown 06/29/2024 9 :49 PM EDT 06/29/2024 10:22 PM EDT us Cristy Hampton MD POINT OF CARE TEST ORDERABLE S Final Result [facility] * (ABNORMAL) Blood gas, venous (06/29/2024 8:56 PM EDT) Only the most recent of3 resultswithin the time period is included. Sample Type VENOUS 06/29/2024 9:01 PM EDT [facility] Body Temp 37.0 37.0 C 06/29/2024 9:01 PM EDT [facility] pH, Venous 7.230(L) 7.320 - 7.420 06/29/2024 9:01 PM EDT [facility] PCO2, Venous 58.6(H) 35 - 50 MMHG 06/29/2024 9:01 PM EDT [facility] PO2, Venous 35 30 - 50 MMHG 06/29/2024 9:01 PM EDT [facility] Base,Deficit 3.0(H) 0.0 - 2.0 MMOL/L 06/29/2024 9:01 PM EDT [facility] Portable HCO3 24.5(H) 20.0 - 24.0 MMOL/L 06/29/2024 9:01 PM EDT [facility] % O2 Sat 54.0(L) >80.0 % 06/29/2024 9:01 PM EDT [facility] Jagdeep's Test NA 06/29/2024 9:01 PM EDT [facility] SPO2 99 % 06/29/2024 9:01 PM EDT [facility] Sample Site N/A 06/29/2024 9:01 PM EDT [facility] Insp. O2 Conc. 4 % 06/29/2024 9:01 PM EDT [facility] Oxygen Source NC 06/29/2024 9:01 PM EDT [facility] Blood / Unknown 06/29/2024 8 :56 PM EDT 06/29/2024 9:01 PM EDT us Cristy Hampton MD LAB BLOOD ORDERABLES Final R esult [facility] [address] [place] [address] * Hepatitis B core antibody, IgM (06/27/2024 9:47 AM EDT) Hep B Core IgM Ab Non-Reacti ve Non-Reacti ve^Non-[place] ctive 06/27/2024 11:44 AM EDT [facility] Comment:NEW TEST METHOD Serum / Unknown 06/27/2024 9 :47 AM EDT 06/27/2024 10:02 AM EDT us Katarina Trotter MD LAB BLOOD ORDERABLES Final Result [facility] [address] [place] [address] * Hemodialysis inpatient (06/25/2024 4:00 PM EDT) Narrative Edith Dhillon RN - 06/25/2024 4:00 PM EDT Edith Dhillon RN 06/25/2024 4:01 PM Juanita Redman completed 1 hr and 58 minutes Hemodialysis on 06/25/24. Patient came off of treatment one hour and 32 minutes early because high temperature on RO machine, temperature! Alarming on machine too. Rinsed patient back. Dr. Trotter notified and advised to stop treatment for today. Work order for maintenance placed. Treatment was tolerated fair. Patient tachycardic but unsustained. Patient needed blood pressure support. Patient received 25g Albumin x2 and one dose 10mg Midodrine during the treatment. Used right neck temporary catheter dialysis access which functioned well @ 450 BFR. Post BP = 118/52 Hr 106 Post treatment weight = 76.3kg Removed= 0.4kg per bed scale (1.4L removed per dialysis machine) (3L as tolerated ordered) More information per Flowsheets & MAR. - Edith Dihllon RN, Dialysis 06/25/24 us Katarina Trotter MD DIALYSIS ORDERABLES Edited Result - Final * (ABNORMAL) Hemoglobin and hematocrit, blood (06/23/2024 8:42 AM EDT) Only the most recent of11 resultswithin the time period is included. Hemoglobin 7.6(L) 11.7 - 15.5 g/dL 06/23/2024 9:10 AM EDT [facility] Hematocrit 23.3(L) 35 - 47 % 06/23/2024 9:10 AM EDT [facility] Blood / Unknown 06/23/2024 8 :42 AM EDT 06/23/2024 8:58 AM EDT us Filomena Newman MD LAB BLOOD ORDERABLES Final R esult [facility] [address] [facility], [address] [place] [address] * Transfuse RBC:1 Unit (06/22/2024 4:51 AM EDT) Only the most recent of2 resultswithin the time period is included. Nathaly Cristina MD BLOOD TRANSFUSION ORDERABLES Fi nal Result * Hemodialysis inpatient (06/21/2024 6:07 PM EDT) Narrative Richa Chairez RN - 06/21/2024 6:07 PM EDT Richa Chairez RN 06/21/2024 6:15 PM Patient completed 3.5 hour dialysis treatment. Patient tolerated treatment fair. Patient experienced periods of hypotension with BP dropping to 87/36 lowest. Patient received,150 ml saline bolus, albumin 25g, and midodrine 10mg x1 for hypotension. Medications were ineffective. Patient started on Levo during treatment for BP support. Levo started at max dose of 0.06. Levo then titrated down to 0.04 after BP recovered. Patient sedation was also decreased. Right IJ functioned well at BFR 350. Post arterial line BP- 120/48 Post weight- 75.8 kg Bed scale show removal of 3.1 kg Katarina Trotter MD DIALYSIS ORDERABLES Final R esult * Crossmatch RBC:Number of Units: 1 (06/21/2024 10:00 AM EDT) Only the most recent of2 resultswithin the time period is included. Blood component type [id number] BLOOD BANK - [email or web address] Unit number [id number] BL OOD BANK - [email or web address] Unit ABO A BLOOD BANK - [email or web address] Unit RH POS BLOOD BANK - [email or web address] Crossmatch Compatible BLOOD BA NK - LISA Status of unit TRANSFUSED BLOO D BANK - [email or web address] Expiration Date [id number] BLOOD BANK - [email or web address] BB Type Barcode 6200 BLOOD BANK - [email or web address] Blood 06/21/2024 10:0 0 AM EDT Nathaly Cristina MD BLOOD BANK PRODUCT ORDERABLES E dited Result - Final BLOOD BANK - [email or web address] * Type and screen(includes indirect chito) (06/21/2024 10:00 AM EDT) Only the most recent of2 resultswithin the time period is included. ABO A 06/21/2024 12:21 PM EDT [facility] RH Positive 06/21/2024 12:21 PM EDT [facility] Antibody Screen Negative 06/21/2024 12:21 PM EDT [facility] 06/21/2024 10:0 0 AM EDT Filomena Newman MD BLOOD BANK TEST ORDERABLES E dited Result - Final [facility] [address] [place] [address], [place] * Ultrafiltration inpatient (06/20/2024 5:19 PM EDT) Kathy Mendez RN - 06/20/2024 5:19 PM EDT Kathy Austin RN 06/20/2024 5:21 PM Pt dialyzed for 3.5 hours with a net fluid removal of 2.4kg Pre hd wt was 80.8kg Post HD wt was 78.4kg Catheter functioned well. Pt was given albumin prior to dialysis and then one dose of midodrine during dialysis Patrick Mustafa MD DIALYSIS ORDERABLES Final Result * Lactate w/ Reflex (06/20/2024 8:58 AM EDT) Only the most recent of2 resultswithin the time period is included. Lactate w/ Reflex 1.4 0.4 - 2.0 mmol/L 06/20/2024 9:57 AM EDT [facility] Comment: Result did not trigger repeat Lactate, re-order if needed. PLASMA 06/20/2024 8:58 AM EDT 06/20/2024 9:14 AM EDT Filomena Newman MD LAB BLOOD ORDERABLES Final R esult [facility] [address], [address] [place] [address] * Ultrafiltration inpatient (06/19/2024 2:06 PM EDT) Narrative Emely Abarca RN - 06/19/2024 2:06 PM EDT Emely Abarca RN 06/19/2024 2:07 PM Pt completed 3 hr UF tx. Pt tolerated tx fairly well. Pre tx midodrine given and albumin x 3. Rt IJ functioned well at 400 BFR. Post tx BP 158/76 HR 57 Wt 81kg Fluid removed 3.1 L per bed scale. Report given to primary RN. - Emely Abarca RN 06/19/24 2:06 PM Katarina Trotter MD DIALYSIS ORDERABLES Final R esult * Hemodialysis inpatient (06/18/2024 2:50 PM EDT) Cristela Somers RN - 06/18/2024 2:50 PM EDT Cristela Howell RN 06/18/2024 3:26 PM Starting weight: 83.8 Kg Post weight: 81.2 Kg Goal fluid Removal: 3L Fluid Removal: 2.6 4 hours of HD completed.This was pt first treatment after CRRT. Access tolerated treatment appropriately. Hemodialysis Catheter dressing changed. Medications: Pt received 1 dose of 10 mg of midodrine and 2 doses of 25 g of albumin for hypotension. Primary RN titrated Levophed throughout treatment. Pt is sensitive to Levophed, with SBP jumping into the 160's on starting dose. Levophed at highest titration was 0.04 mcg/Kg/min and at lowest titration Levophed was off. Post BP: 153/71 Post HR: 82 Katarina Trotter MD DIALYSIS ORDERABLES Final R esult * APTT (06/18/2024 8:20 AM EDT) Only the most recent of8 resultswithin the time period is included. aPTT 31 26 - 37 sec 06/18/2024 8:54 AM EDT [facility] PLASMA 06/18/2024 8:20 AM EDT 06/18/2024 8:38 AM EDT us Patrick Mustafa MD LAB BLOOD ORDERABLES Final Result [facility] [address] [facility], [address] [place] [address] * (ABNORMAL) Liver panel (06/18/2024 3:10 AM EDT) Only the most recent of6 resultswithin the time period is included. Alkaline phosphatase 78 39 - 130 U/L 06/18/2024 3:54 AM EDT [facility] AST 15 0 - 41 U/L 06/18/2024 3:54 AM EDT [facility] ALT 3 0 - 31 U/L 06/18/2024 3:54 AM EDT [facility] Total Bilirubin 1.2 0.3 - 1.2 mg/dL 06/18/2024 3:54 AM EDT [facility] Bilirubin, direct 0.7(H) 0.0 - 0.4 mg/dL 06/18/2024 3:54 AM EDT [facility] Albumin 2.8(L) 3.2 - 5.3 g/dL 06/18/2024 3:54 AM EDT [facility] Total Protein 5.5(L) 6.0 - 8.0 g/dL 06/18/2024 3:54 AM EDT [facility] PLASMA 06/18/2024 3:10 AM EDT 06/18/2024 3:23 AM EDT us Patrick Mustafa MD LAB BLOOD ORDERABLES Final Result [facility] [address] [facility], [address] [place] [address] * X-ray abdomen NG Tube placement 1 view (06/17/2024 4:58 PM EDT) Anatomical Region Laterality Modality Body, Abdomen N/A Computed Radiogr aphy 06/17/2024 5:27 PM EDT Narrative 06/17/2024 5:27 PM EDT XR ABD NG TUBE PLACEMENT 1 VIEW Clinical history:ng tube enteric catheter placement Comparison: None. Impression: Enteric catheter tip in the region of the mid stomach. Finalized by Eric Mendoza MD on 06/17/2024 5:27 PM Procedure Note Eric Mendoza MD - 06/17/2024 XR ABD NG TUBE PLACEMENT 1 VIEW Clinical history:ng tube enteric catheter placement Comparison: None. Impression: Enteric catheter tip in the region of the mid stomach. Finalized by Eric Mendoza MD on 06/17/2024 5:27 PM us Riya Calderon MD IMG DIAGNOSTIC IMAGING ORDER SALMA Final Result * Electrolyte panel (06/17/2024 4:54 PM EDT) Only the most recent of10 resultswithin the time period is included. Sodium 141 134 - 146 mmol/L 06/17/2024 6:00 PM EDT [facility] Potassium, Bld 4.1 3.5 - 5.0 mmol/L 06/17/2024 6:00 PM EDT [facility] Chloride 106 98 - 109 mmol/L 06/17/2024 6:00 PM EDT [facility] CO2 25 22 - 32 mmol/L 06/17/2024 6:00 PM EDT [facility] Anion gap 10 5 - 15 mmol/L 06/17/2024 6:00 PM EDT [facility] PLASMA 06/17/2024 4:54 PM EDT 06/17/2024 5:21 PM EDT us Katarina Trotter MD LAB BLOOD ORDERABLES Final Result [facility] [address] [place] [address] * Vancomycin, random (06/17/2024 2:00 AM EDT) Only the most recent of4 resultswithin the time period is included. Vancomycin 15.8 5.0 - 40.0 ug/mL 06/17/2024 2:42 AM EDT [facility] Comment: Peak 30-40 ug/mL Trough 5-20 ug/ml PLASMA 06/17/2024 2:00 AM EDT 06/17/2024 2:15 AM EDT us Nathaly Cristina MD LAB BLOOD ORDERABLES Final Resu lt Performing Organization Address City/[facility]/ZIP Co de Phone Number [facility] [address] [facility], [address] [place] [address] * Blood culture #2 (06/15/2024 1:12 PM EST) Only the most recent of4 resultswithin the time period is included. Culture NO GROWTH 5 DAYS 06/20/2024 2:41 PM EDT [facility] Blood Blood / Unknown 06/15/2024 1 :12 PM EST 06/15/2024 1:34 PM EST Comment:SUBOPTIMAL VOLUME OF BLOOD COLLECTED, RESULTS MAY BE AFFECTED. us Danny Grey MD MICROBIOLOGY - GENERAL O RDERABLES Final Result [facility] * Echo complete W/O contrast (06/14/2024 5:10 PM EST) LVOT stroke volume 62.38 ml XCELERA LV Systolic Volume 19.10 mL XCELERA EF 57 % XC[facility]A FS 36 28 - 44 % [facility]A LV Diastolic Volume 44.10 mL [facility]ERA LVIDd 4.20 5.05 - 7.01 cm XCELERA LVIDs 2.70 2.97 - 4.49 cm XCELERA IVS 1.30 0.6 - 1.1 cm XCELERA PW 1.30 0.6 - 1.1 cm XCELERA LVOT diameter 1.90 cm [facility]ERA LA size 3.80 cm XCELERA RV diastolic dimension (basal) 35.0 mm XCELERA TAPSE 1.28 cm XCELERA Est. RA pressure 15 mmHg XCELERA AV peak nuno 166.00 cm/s XCELERA LVOT peak nuno 1.06 m/s XCELERA AV VTI 28.60 cm XCELERA LVOT peak VTI 22.00 cm XCELERA AV mean gradient 7.00 mmHg XCELERA AV peak gradient 11.02 mmHg XCELERA AV valve area 2.18 XCELERA Valve area - Index 1.1 XCELERA MV mean gradient 3.00 mmHg XCELERA MV peak gradient 7.95 mmHg XCELERA MV VTI 32.00 cm XCELERA MV valve area by continuity eq 1.95 XCELERA TR Peak Nuno 2.6 m/s XCELERA TR peak gradient 26.21 mmHg XCELERA RV Peak Systolic Pressure 41 mmHg XCELERA PV peak gradient 3.77 mmHg XCELERA Inferior Vena Cava Diameter 2.90 cm XCELERA LV ESV A4C 142.00 mL XCELERA Mitral Valve Max Velocity 1.41 cm/s XCELERA LV RWT 2D 61.90 XCELERA Echo EF Estimated 57 % XC[facility]ERA AV Velocity Ratio 0.77 XCELERA IVC proximal 29 cm X[facility]A Left Ventricle Mass 200.86339 [id number] 1 g XCELERA Interventricular Septum Diastolic Thickness by 2D 13 cm X[facility]A LA Volume Index 60.0 mL/m2 X[facility]A RA area 25.0 cm2 XCELERA ZLVIDS -2.38 XCELERA ZLVIDD -3.49 [facility]ERA Anatomical Region Laterality Modality Chest N/A Ultrasound Narrative 06/14/2024 5:35 PM EST Left Ventricle: Left ventricle appears normal in size. Systolic function is normal with an ejection fraction of 55-60%. No obvious regional wall motion abnormalities. Pericardium: There is a trivial pericardial effusion. There is a left pleural effusion. Left Atrium: Left atrium is severely dilated. Left atrium volume index is severely increased. The left atrial volume index is 60.0 mL/m2. Left Ventricle Left ventricle appears normal in size. There is mild increased wall thickness/hypertrophy. Systolic function is normal with an ejection fraction of 55-60%. No obvious regional wall motion abnormalities. Unable to assess diastolic function due to atrial fibrillation/flutter. Right Ventricle The right ventricular basal diameter is 35.0 mm. Abnormal tricuspid annular plane systolic excursion. Left Atrium Left atrium is severely dilated. Left atrium volume index is severely increased. The left atrial volume index is 60.0 mL/m2. Right Atrium Right atrium is mildly dilated. The right atrial area is 25.0 cm2. IVC/SVC The patient is mechanically ventilated or intubated. IVC appears dilated with increased right atrial pressure. Mitral Valve Mitral valve structure is normal. There is mild regurgitation. There is no evidence of mitral valve stenosis. Tricuspid Valve Tricuspid valve appears to be normal. There is mild to moderate regurgitation. RVSP calculated at 41 mmHg. RVSP is based on RA pressure of 15 mmHg. Aortic Valve The aortic valve is trileaflet. There is no regurgitation or stenosis. Pulmonic Valve Pulmonic valve structure is grossly normal. There is no regurgitation. The peak gradient is 3.77 mmHg. Ascending Aorta The aortic root is normal in size. Pericardium There is a trivial pericardial effusion. There is a left pleural effusion. Study Details A complete echo was performed using complete 2D. The study had technical difficulties. The study was difficult due to patient's ventilator. us Nathaly Cristina MD CV ECHO ORDERABLES Final Result * CT chest without contrast (06/14/2024 2:10 PM EST) Anatomical Region Laterality Modality Body, Lung, Chest, Body Covera N/A C omputed Tomography 06/14/2024 2:38 PM EST Narrative 06/14/2024 2:42 PM EST CLINICAL INFORMATION: Failed or difficult intubation; difficult intubation, clinical deterioration, shock requiring pressors, hypoxic respiratory failure requiring intubation. COMPARISON: 02/19/15. PROCEDURE: Routine CT chest obtained without contrast. Multiplanar reformats obtained from the axial data. All CT scans at this facility use dose modulation, iterative reconstruction, and/or weight based dosing when appropriate to reduce radiation dose to as low as reasonably achievable. Computer aided detection for pulmonary nodules was performed utilizing [employer] software. FINDINGS: Endotracheal tube present. There is a right IJ catheter with adjacent hematoma, correlate for vessel injury or abnormality. Diffuse body wall edema and anasarca present. Some groundglass opacities with lower lobe consolidation. Large left effusion with debris or compression of the left upper and lower lobe bronchus with complete collapse. Mediastinal shift to the left. Atherosclerotic calcifications in the aorta without aneurysm. Severe coronary artery calcifications. Pulmonary arteries are of normal caliber. No definite enlarged lymph nodes. There is a right PICC. Degenerative changes. Right shoulder os acromiale he. Prominent degenerative changes. IMPRESSION: * Endotracheal tube present in the upper trachea below the thoracic inlet. * Right IJ catheter with hematoma and blood products in the right neck region, correlate with CT neck obtained today. * Groundglass opacities right lung with lower lobe consolidation, complete collapse left upper and lower lobes with pleural effusions noted bilaterally left greater than right. * Diffuse body wall edema consistent with anasarca. Finalized by iVnicio Ruiz MD on 06/14/2024 2:42 PM Procedure Note Vinicio Ruiz MD - 06/14/2024 CLINICAL INFORMATION: Failed or difficult intubation; difficultintubation, clinical deterioration, shock requiring pressors, hypoxicrespiratory failure requiring intubation. COMPARISON: 02/19/15. PROCEDURE: Routine CT chest obtained without contrast. Multiplanar reformats obtainedfrom the axial data. All CT scans at this facility use dose modulation,iterative reconstruction, and/or weight based dosing when appropriate toreduce radiation dose to as low as reasonably achievable. Computer aided detection for pulmonary nodules was performed utilizing [employer]. FINDINGS: Endotracheal tube present. There is a right IJ catheter with adjacenthematoma, correlate for vessel injury or abnormality. Diffuse body walledema and anasarca present. Some groundglass opacities with lower lobe consolidation. Large lefteffusion with debris or compression of the left upper and lower lobebronchus with complete collapse. Mediastinal shift to the left. Atherosclerotic calcifications in the aorta without aneurysm. Severecoronary artery calcifications. Pulmonary arteries are of normal caliber. No definite enlarged lymph nodes. There is a right PICC. Degenerative changes. Right shoulder os acromiale he. Prominentdegenerative changes. IMPRESSION: * Endotracheal tube present in the upper trachea below the thoracicinlet. * Right IJ catheter with hematoma and blood products in the right neckregion, correlate with CT neck obtained today. * Groundglass opacities right lung with lower lobe consolidation,complete collapse left upper and lower lobes with pleural effusions notedbilaterally left greater than right. * Diffuse body wall edema consistent with anasarca. Finalized by Vinicio Ruiz MD on 06/14/2024 2:42 PM [facility] Mervin Grey MD IMG CT ORDERABLES Final Result * CT neck soft tissue without contrast (06/14/2024 2:09 PM EST) Anatomical Region Laterality Modality Neuro, Neck, Neuro Covera N/A Comput ed Tomography 06/14/2024 3:32 PM EST Narrative 06/14/2024 3:48 PM EST STUDY: CT NECK SOFT TISSUE WO CONT INDICATION: Soft tissue infection suspected, neck, no prior imaging; swelling, rule out hematoma following right trialysis catheter placement. TECHNIQUE: * CT of the neck performed without intravenous contrast. Multiplanar reformats were created and reviewed. * All CT scans at this facility use dose modulation, iterative reconstruction, and/or weight based dosing when appropriate to reduce radiation dose to as low as reasonably achievable. FINDINGS: Complete opacification of the left lung, better assessed on the chest radiograph from the same day. Partially assessed intracranial contents, globes and orbits appear unremarkable. Endotracheal tube is noted in the distal trachea. Bilateral calcified tonsilloliths. Pharyngeal and laryngeal mucosa otherwise appear unremarkable within limitations of noncontrast and intubated technique. Straw Hat Brusher, parapharyngeal and retropharyngeal spaces are unremarkable. Within limitations of technique, the salivary glands and thyroid gland appear unremarkable. No discrete lymphadenopathy by noncontrast technique. Right IJ central venous catheter, peripherally inserted central venous catheter transjugular intrahepatic portosystemic shunt are outside the [id number]. There is soft tissue stranding in the right neck soft tissue, which may be related to the central venous catheter placement. There may be a small hematoma subjacent to the right sternocleidomastoid muscle measuring up to 1.9 x 4.0 x 3.6 cm. Body wall edema. Mucosal thickening, secretions and layering fluid in the paranasal sinuses. Bilateral mastoid effusions. Periapical lucency of a right mandibular molar, which appears fractured. Significant atherosclerosis of the carotid bifurcations and to a lesser extent carotid siphons. Bilateral pleural effusions with additional collapse of the left lung, better assessed on the dedicated CT chest. IMPRESSION: * Suspected hematoma in the right neck just deep to the right IJ central venous catheter, and sternocleidomastoid, measuring up to 1.9 x 4.0 x 3.6 cm. * Fractured right mandibular molar with associated periapical lucency. Consider nonemergent dental exam. * Pleural effusions and left lung collapse better assessed on the dedicated CT chest. Finalized by Jaylen Pichardo on 06/14/2024 3:48 PM Procedure Note Jaylen Pichardo MD - 06/14/2024 STUDY: CT NECK SOFT TISSUE WO CONT INDICATION: Soft tissue infection suspected, neck, no prior imaging;swelling, rule out hematoma following right trialysis catheterplacement. TECHNIQUE: * CT of the neck performed without intravenous contrast. Multiplanarreformats were created and reviewed. * All CT scans at this facility use dose modulation, iterativereconstruction, and/or weight based dosing when appropriate to reduceradiation dose to as low as reasonably achievable. FINDINGS: Complete opacification of the left lung, better assessed on the chestradiograph from the same day. Partially assessed intracranial contents, globes and orbits appearunremarkable. Endotracheal tube is noted in the distal trachea. Bilateral calcified tonsilloliths. Pharyngeal and laryngeal mucosaotherwise appear unremarkable within limitations of noncontrast andintubated technique. Straw Hat Brusher, parapharyngeal and retropharyngeal spaces are unremarkable. Within limitations of technique, the salivary glands and thyroid glandappear unremarkable. No discrete lymphadenopathy by noncontrast technique. Right IJ central venous catheter, peripherally inserted central venouscatheter transjugular intrahepatic portosystemic shunt are outside [id number]. There is soft tissue stranding in the right neck soft tissue, which may berelated to the central venous catheter placement. There may be a smallhematoma subjacent to the right sternocleidomastoid muscle measuring up to1.9 x 4.0 x 3.6 cm. Body wall edema. Mucosal thickening, secretions and layering fluid in theparanasal sinuses. Bilateral mastoid effusions. Periapical lucency of aright mandibular molar, which appears fractured. Significant atherosclerosis of the carotid bifurcations and to a lesserextent carotid siphons. Bilateral pleural effusions with additionalcollapse of the left lung, better assessed on the dedicated CT chest. IMPRESSION: * Suspected hematoma in the right neck just deep to the right IJ centralvenous catheter, and sternocleidomastoid, measuring up to 1.9 x 4.0 x 3.6cm. * Fractured right mandibular molar with associated periapical lucency.Consider nonemergent dental exam. * Pleural effusions and left lung collapse better assessed on thededicated CT chest. Finalized by Jaylen Pichardo on 06/14/2024 3:48 PM Danny Grey MD IMG CT ORDERABLES Final Result * CT abdomen and pelvis without contrast (06/14/2024 2:09 PM EST) Anatomical Region Laterality Modality Body, Abdomen, Body Covera N/A Compu maxi Tomography 06/14/2024 3:05 PM EST Narrative 06/14/2024 3:17 PM EST History:Sepsis Exam: CT abdomen and pelvis without contrast. All CT scans at this facility use dose modulation, iterative reconstruction, and/or weight based dosing when appropriate to reduce radiation dose to as low as reasonably achievable. Comparison: Retroperitoneal ultrasound 06/14/2024. CT chest dictated separately. Findings: CT abdomen: Moderate free fluid. No free air. No hydronephrosis or urinary calculi. Gallbladder within normal limits. No enlarged lymph nodes. No abdominal aortic aneurysm. Significant anasarca. Simple 6 cm left renal cyst. No follow-up necessary. CT pelvis: Moderate free fluid extends in the low pelvis. No focal fluid collections. No evidence for bowel obstruction. Mild sigmoid diverticulosis. Rios catheter decompresses the bladder. No enlarged lymph nodes. No osseous destructive lesions. IMPRESSION: Moderate free fluid. No free air. No bowel or urinary tract obstruction. Anasarca. Finalized by Orestes Lozano MD on 06/14/2024 3:17 PM Procedure Note Orestes Lozano MD - 06/14/2024 History:Sepsis Exam: CT abdomen and pelvis without contrast. All CT scans at this facility use dose modulation, iterativereconstruction, and/or weight based dosing when appropriate to reduceradiation dose to as low as reasonably achievable. Comparison: Retroperitoneal ultrasound 06/14/2024. CT chest dictatedseparately. Findings: CT abdomen: Moderate free fluid. No free air. No hydronephrosis or urinary calculi.Gallbladder within normal limits. No enlarged lymph nodes. No abdominalaortic aneurysm. Significant anasarca. Simple 6 cm left renal cyst. Nofollow-up necessary. CT pelvis: Moderate free fluid extends in the low pelvis. No focal fluidcollections. No evidence for bowel obstruction. Mild sigmoiddiverticulosis. Rios catheter decompresses the bladder. No enlargedlymph nodes. No osseous destructive lesions. IMPRESSION: Moderate free fluid. No free air. No bowel or urinary tractobstruction. Anasarca. Finalized by Orestes Lozano MD on 06/14/2024 3:17 PM Danny Mervin Grey MD IMG CT ORDERABLES Final Result * Ultrasound retroperitoneal complete (06/14/2024 1:06 PM EST) Anatomical Region Laterality Modality Body Ultrasound 06/14/2024 1:14 PM EST Narrative 06/14/2024 1:16 PM EST CLINICAL INFORMATION: DASHAWN STUDY: Complete ultrasound of retroperitoneum. COMPARISON: None. FINDINGS: Kidney: Size: Right measures 10.6 cm; left measures 12.2 cm. Echogenicity: Increased echogenicity bilaterally Parenchymal thickness: Normal. Contour: Smooth. Pelvicalyceal dilatation: None. Calculus: None. Mass: Simple appearing cyst within the left kidney measuring up to 6.6 cm. Bladder: Not distended due to presence of catheter. Limited evaluation. IMPRESSION: Increased renal echogenicity bilaterally consistent with medical renal disease. No hydronephrosis. Simple appearing cyst within the left kidney measuring up to 6.6 cm. Trace fluid in the abdomen partially visualized pleural spaces bilaterally Finalized by Linda Gibson MD on 06/14/2024 1:16 PM Procedure Note Linda Gibson MD - 06/14/2024 CLINICAL INFORMATION: DASHAWN STUDY: Complete ultrasound of retroperitoneum. COMPARISON: None. FINDINGS: Kidney: Size: Right measures 10.6 cm; left measures 12.2 cm. Echogenicity: Increased echogenicity bilaterally Parenchymal thickness: Normal. Contour: Smooth. Pelvicalyceal dilatation: None. Calculus: None. Mass: Simple appearing cyst within the left kidney measuring up to 6.6cm. Bladder: Not distended due to presence of catheter. Limited evaluation. IMPRESSION: Increased renal echogenicity bilaterally consistent with medical renaldisease. No hydronephrosis. Simple appearing cyst within the left kidney measuring up to 6.6 cm. Trace fluid in the abdomen partially visualized pleural spacesbilaterally Finalized by Linda Gibson MD on 06/14/2024 1:16 PM us Katarina Trotter MD IM US ORDERABLES Final Res ult * (ABNORMAL) Urine protein creatinine ratio (06/14/2024 12:26 PM EST) Urine creatinine 39.08 mg/dL 06/14/2024 1:41 PM EST [facility] Protein Urine Random 860(H) <120 mg/L 06/14/2024 1:41 PM EST [facility] U/Pro/Vending Machine Operator Ratio Calc 2.20(H) <0.2 06/14/2024 1:41 PM EST [facility] Comment:Nephrotic Syndrome i s associated with ratios >3.5 Urine / Unknown 06/14/2024 1 2:26 PM EST 06/14/2024 12:44 PM EST us Katarina Trotter MD URINE ORDERABLES Final Resu lt [facility] [address] [place] [address] * Protein electrophoresis, urine (06/14/2024 12:26 PM EST) Uprel interp SEE SEPARATE REPORT 06/18/2024 8:04 AM EDT [facility] Urine / Unknown 06/14/2024 1 2:26 PM EST 06/14/2024 12:45 PM EST us Katarina Trotter MD URINE ORDERABLES Final Resu lt [facility] * (ABNORMAL) Urinalysis (06/14/2024 12:26 PM EST) Color YELLOW YELLOW^Y ELLOW 06/14/2024 1:23 PM [facility] Turbidity HAZY(A) CLEAR^CL EAR 06/14/2024 1:23 PM [facility] Specific gravity 1.011 1.003 - 1.035 06/14/2024 1:23 PM [facility] Nitrite Negative Negative ^Negativ e 06/14/2024 1:23 PM [facility] Ph urine 5.5 5.0 - 8.5 06/14/2024 1:23 PM [facility] Leukocyte esterase Large(A) Negative ^Negativ e 06/14/2024 1:23 PM [facility] Protein 50(A) Negative ^Negativ e mg/dL 06/14/2024 1:23 PM [facility] Glucose, Ur Negative Negative ^Negativ e mg/dL 06/14/2024 1:23 PM [facility] Ketones urine Negative Negative ^Negativ e mg/dL 06/14/2024 1:23 PM [facility] Urobilinogen <1.1 <1.1 eu/dL 06/14/2024 1:23 PM [facility] Bilirubin, urine Negative Negative ^Negativ e 06/14/2024 1:23 PM [facility] Hemoglobin Large(A) Negative ^Negativ e 06/14/2024 1:23 PM [facility] Microspopic Urine URINE RECEIVED WITHOUT PRESERVATIVE-DE LAYS IN TRANSPORT MAY AFFECT RESULTS.INTERPR ET WITH CAUTION AND CLINICAL CORRELATION IS RECOMMENDED. 06/14/2024 1:31 PM [facility] Mucus, UA PRESENT(A) NONE^NON E 06/14/2024 1:23 PM [facility] RBC 140(H) 0 - 5 /hpf 06/14/2024 1:23 PM [facility] Squamous epithelium 2 0 - 5 /hpf 06/14/2024 1:23 PM [facility] Trans Epithel, UA <1(H) 0 /hpf 06/14/2024 1:23 PM [facility] Hyaline Casts, UA 10(H) 0 - 2 /lpf 06/14/2024 1:23 PM [facility] WBC 69(H) 0 - 5 /hpf 06/14/2024 1:23 PM [facility] Urine / Unknown 06/14/2024 1 2:26 PM EST 06/14/2024 12:44 PM EST us Katarina Trotter MD URINE ORDERABLES Edited Res ult - Final [facility] [address], [address] [place] [address] * Urine culture (06/14/2024 12:26 PM EST) Specimen Notes URINE RECEIVED WITHOUT PRESERVATIVE 06/14/2024 1:17 PM [facility] Culture NO GROWTH AT <1000 CFU/mL 06/15/2024 12:38 PM [facility] Urine Urine / Unknown 06/14/2024 1 2:26 PM EST 06/14/2024 1:16 PM EST us Katarina Trotter MD MICROBIOLOGY - [facility]AL [facility] Final Result [facility] [address], [address] [place] [address] * (ABNORMAL) Basic Metabolic Panel (06/14/2024 10:33 AM EST) Sodium 131(L) 134 - 146 mmol/L 06/14/2024 11:24 AM EST [facility] Potassium, Bld 4.8 3.5 - 5.0 mmol/L 06/14/2024 11:24 AM EST [facility] Chloride 100 98 - 109 mmol/L 06/14/2024 11:24 AM [facility] CO2 21(L) 22 - 32 mmol/L 06/14/2024 11:24 AM [facility] Anion gap 10 5 - 15 mmol/L 06/14/2024 11:24 AM [facility] BUN 42(H) 5 - 27 mg/dL 06/14/2024 11:24 AM [facility] Creatinine 3.64(H) 0.40 - 1.00 mg/dL 06/14/2024 11:24 AM EST [facility] Comment:METHOD TRACEABLE TO IDMS STANDARD Glucose 97 65 - 99 mg/dL 06/14/2024 11:24 AM [facility] Calcium 8.0(L) 8.5 - 10.5 mg/dL 06/14/2024 11:24 AM [facility] eGFR (CKD-EPI)non-ra ce dependent 14(L) >59 ml/min/1.7 3sq.m 06/14/2024 11:24 AM [facility] Comment: Reported eGFR is based on the CKD-EPI 2020 equation that does not use a race coefficient. PLASMA 06/14/2024 10:3 3 AM EST 06/14/2024 10:50 AM EST us Danny Grey MD LAB BLOOD ORDERABLES Fin al Result [facility] [address], [address] [place] [address] * ABO Rh Repeat (06/14/2024 9:30 AM EST) ABO A 06/14/2024 5:35 PM EST [facility] RH Positive 06/14/2024 5:35 PM EST [facility] 06/14/2024 9:30 AM EST us Kvng Hayes MD BLOOD BANK TEST ORDERABLES Final Result [facility] [address] [place] [address], * Clinical Pathology Blood Smear Review Clinical (06/14/2024 8:46 AM EST) Staff review NOTE 06/19/2024 11:58 AM EDT [facility] Comment: [facility] [address] [place] [address] Clinical Pathology Report Patient Name:JUANITA REDMAN:1965 (Age: 59)Gender:FTaken:06/14/2024Reported:06/19/2024Physician(s):Vernell Ospina To: Rec. #:[id number]: #[id number] Final Pathologic Diagnosis Peripheral smear review: - Marked macrocytic anemia and borderline thrombocytopenia C/W liver disease Comment The CBC and smear review is significant for mild lymphopenia with normal morphology, marked macrocytic anemia with no anisocytosis and borderline thrombocytopenia with small forms and no clumps. Features of myelodysplastic neoplasm (MDS), megaloblastic, iron deficiency and hemolytic anemia or anemia of chronic kidney disease are not seen. Therefore, the anemia, lymphopenia and thrombocytopenia are probably secondary to alcoholic liver disease. Clinical correlation is appreciated. Report Electronically Signed Out [place]vall/06/19/2024Jamar Hammond MD Interpretation performed at [facility], [address] [place] [address], License number: [id number]. Clinical History ___ BLOOD SMEAR EVALUATION CBC (06/14/20245): WBC: 4.8 x 109/L RBC: 2.31 x 1012/L Hgb: 7.6 g/dL MCV: 102 fL RDW: 16.8 Platelets: 138 x 109/L Automated differential: Neutrophils: 3.8 x 109/L Lymphs: 0.5 x 109/L Monos: 0.4 x 109/L Eos: 0.0 x 109/L Basos: 0.0 x 109/L Other lab data: N/A Blood smear: WBC: Normal RBC: Marked macrocytic anemia with mild anisocytosis Platelets: Borderline thrombocytopenia with small forms and no clumps Specimen(s) Received Blood Smear Review Fee Codes(s): 1; 15994 Blood / Unknown 06/14/2024 8 :46 AM EST 06/14/2024 8:52 AM EST Danny Grey MD LAB BLOOD ORDERABLES Fin al Result [facility] * Cytoplasmic Neutrophilic Ab (ANCA), S (06/14/2024 8:00 AM EST) c-ANCA Negative Negative 06/15/2024 12:45 PM EST [facility] p-ANCA Negative Negative 06/15/2024 12:45 PM EST [facility] Comment: NOTE Negative for cANCA and pANCA patterns by immunofluorescence. ADDITIONAL INFORMATION This test was developed and its performance characteristics determined by [facility] in a manner consistent with CLIA requirements. This test has not been cleared or approved by the U.S. Food and Drug Administration. Test Performed by: [facility] - [address] [address] Technologist Infectious Disease: Alan Boothe Ph.D.; CLIA# [id number] Blood Serum / Unknown 06/14/2024 8 :00 AM EST 06/14/2024 8:17 AM EST Katarina Trotter MD LAB BLOOD ORDERABLES Final Result [facility] * (ABNORMAL) Serum Immunofixation (06/14/2024 8:00 AM EST) Pathologist [facility] IgA 568(H) 68 - 378 mg/dL 06/14/2024 8:53 AM EST [facility] IgG 1,039 635 - 1,741 mg/dL 06/14/2024 8:53 AM EST [facility] IgM 162 45 - 281 mg/dL 06/14/2024 8:53 AM EST [facility] Immune profile inter SEE SEPARATE REPORT 06/18/2024 8:06 AM EDT [facility] Serum / Unknown 06/14/2024 8 :00 AM EST 06/14/2024 8:17 AM EST Katarina Trotter MD LAB BLOOD ORDERABLES Final Result [facility] [address] [facility] [facility] [address] [place] [address] * Glomerular basement membrane IgG AB (06/14/2024 8:00 AM EST) [facility] Glomerular basement membrane IgG AB <0.2 <1.0 AI 06/14/2024 11:07 AM EST [facility] Serum / Unknown 06/14/2024 8 :00 AM EST 06/14/2024 8:17 AM EST Katarina Trotter MD LAB BLOOD ORDERABLES Final Result Performing Organization Address City/[facility]/ZIP Co de Phone Number [facility] [address] [place] [address], [facility] [address] [place] [address] * (ABNORMAL) TSH with Reflex (06/14/2024 8:00 AM EST) Only the most recent of2 resultswithin the time period is included. [facility] TSH 14.30(H) 0.49 - 4.67 uIU/mL 06/14/2024 9:36 AM EST [facility] PLASMA 06/14/2024 8:00 AM EST 06/14/2024 8:17 AM EST Katarina Trotter MD LAB BLOOD ORDERABLES Edited Result - Final Performing Organization Address [facility]/ZIP Co de Phone Number [facility] [address] [place] [address], [address] [place] [address] * LDH (06/14/2024 8:00 AM EST) Pathologist [facility] LDH 127 100 - 235 U/L 06/14/2024 11:21 AM EST [facility] PLASMA 06/14/2024 8:00 AM EST 06/14/2024 8:17 AM EST Katarina Trotter MD LAB BLOOD ORDERABLES Final Result Performing Organization Address [facility] Co de Phone Number [facility] [address] [place] [address], [facility] [address] [place] [address] * (ABNORMAL) Free light chains (06/14/2024 8:00 AM EST) Pathologist [facility] Free [place] Lt Chains 22.41(H) 0.33 - 1.94 mg/dL 06/14/2024 11:01 AM EST [facility] Free Lambda Lt Chains 13.82(H) 0.57 - 2.63 mg/dL 06/14/2024 11:01 AM EST [facility] Free jose ramon/lambda ratio 1.62 0.26 - 1.65 06/14/2024 11:01 AM EST [facility] Serum / Unknown 06/14/2024 8 :00 AM EST 06/14/2024 8:17 AM EST Katarina Trotter MD LAB BLOOD ORDERABLES Final Result Performing Organization Address City/[facility]/ZIP Co de Phone Number [facility] * (ABNORMAL) Complement profile (C3 AND C4) (06/14/2024 8:00 AM EST) C3 Complement 69(L) 86 - 184 mg/dL 06/14/2024 8:53 AM [facility] C4 Complement 13(L) 16 - 47 mg/dL 06/14/2024 8:53 AM [facility] Serum / Unknown 06/14/2024 8 :00 AM EST 06/14/2024 8:17 AM EST Katarina Trotter MD LAB BLOOD ORDERABLES Final Result Performing Organization Address City/[facility]/ZIP Co de Phone Number [facility] [address] [place] [address], [address] [address] * Iron and TIBC (06/14/2024 8:00 AM EST) Pathologist [facility] Iron 118 50 - 170 ug/dL 06/14/2024 8:54 AM [facility] Tibc-calc only do not order 272 250 - 425 ug/dL 06/14/2024 8:54 AM [facility] Iron Saturation 43 15 - 50 % SATURATION 06/14/2024 8:54 AM [facility] PLASMA 06/14/2024 8:00 AM EST 06/14/2024 8:17 AM EST Katarina Trotter MD LAB BLOOD ORDERABLES Final Result Performing Organization Address City/[facility] Co de Phone Number [facility] [address] [place] [address], [address] [address] * MATY Screen w/ Reflex (06/14/2024 8:00 AM EST) Pathologist [facility] Maty screen Negative Negative^N egative 06/14/2024 11:05 AM [facility] Comment: Testing performed using multiplex flow immunoassay. Eleven different antigens associated with systemic autoimmune diseases (dsDNA,Sm,Sm/RESEARCH AIDE,RESEARCH AIDE,Chromatin, SSA,SSB,Keesha-1,Scl70,Ribo P,Centromere B) are included in this screening test. Serum / Unknown 06/14/2024 8 :00 AM EST 06/14/2024 8:17 AM EST Katarina Trotter MD LAB BLOOD ORDERABLES Final Result [facility] [address] [facility] [address], [address] [place] [address] * (ABNORMAL) T4, free (06/14/2024 8:00 AM EST) Only the most recent of2 resultswithin the time period is included. T4, free 0.58(L) 0.61 - 1.60 ng/dL 06/14/2024 10:17 AM EST [facility] Comment:CLIA ID [id number] 06/14/2024 8:00 AM EST Katarina Trotter MD LAB BLOOD ORDERABLES Final Result [facility] [address] [place] [address], [facility] [address] [place] [address] * (ABNORMAL) Protein electrophoresis, serum (06/14/2024 8:00 AM EST) [facility] Total Protein 6.0 6.0 - 8.0 g/dL 06/14/2024 8:53 AM EST [facility] Albumin 3.2(L) 3.4 - 5.3 g/dL 06/17/2024 1:36 PM EDT [facility] Alpha 1 0.4 0.1 - 0.4 g/dL 06/17/2024 1:36 PM EDT [facility] Alpha 2 0.5 0.4 - 1.1 g/dL 06/17/2024 1:36 PM EDT [facility] Beta 0.9 0.5 - 1.2 g/dL 06/17/2024 1:36 PM EDT [facility] Gamma Globulin 1.0 0.5 - 1.6 g/dL 06/17/2024 1:36 PM EDT [facility] Prot. electrophoresis interp SEE SEPARATE REPORT 06/18/2024 8:06 AM EDT [facility] Serum / Unknown 06/14/2024 8 :00 AM EST 06/14/2024 8:17 AM EST us Katarina Trotter MD LAB BLOOD ORDERABLES Final Result Performing Organization Address City/[facility]/ZIP Co de Phone Number [facility] [address] [facility] [place] [address] * Haptoglobin (06/14/2024 8:00 AM EST) Haptoglobin 84 32 - 228 mg/dL 06/14/2024 9:25 AM EST [facility] Serum / Unknown 06/14/2024 8 :00 AM EST 06/14/2024 8:17 AM EST us Katarina Trotter MD LAB BLOOD ORDERABLES Final Result Performing Organization Address City/[facility]/ZIP Co de Phone Number [facility] [address] [place] [address] * Folate (06/14/2024 8:00 AM EST) Folate 11.1 >5.8 ng/mL 06/14/2024 9:39 AM EST [facility] Comment:NEW REFERENCE RANGE PLASMA 06/14/2024 8:00 AM EST 06/14/2024 8:17 AM EST us Katarina Trotter MD LAB BLOOD ORDERABLES Final Result Performing Organization Address City/[facility]/ZIP Co de Phone Number [facility] [address] [place] [phone] * Ferritin (06/14/2024 8:00 AM EST) Ferritin 42 11 - 307 ng/mL 06/14/2024 9:08 AM EST [facility] PLASMA 06/14/2024 8:00 AM EST 06/14/2024 8:17 AM EST us Katarina Trotter MD LAB BLOOD ORDERABLES Final Result Performing Organization Address City/[facility]/ZIP Co de Phone Number [facility] [address] [facility], [address] [place] [address] * (ABNORMAL) Vitamin B12 (06/14/2024 8:00 AM EST) Pathologist [facility] Vitamin B-12 1,093(H) 180 - 914 pg/mL 06/14/2024 9:40 AM [facility] Serum / Unknown 06/14/2024 8 :00 AM EST 06/14/2024 8:17 AM EST us Katarina Trotter MD LAB BLOOD ORDERABLES Final Result Performing Organization Address [facility] Co de Phone Number [facility] [address] [place] [address], [address] [place] [address] * (ABNORMAL) Hepatitis B core antibody, total (06/14/2024 2:45 AM EST) [facility] Hep B Core Total Ab Reactive(A ) Non-Reacti ve^Non-[place] ctive 06/14/2024 9:35 AM [facility] Comment:NEW TEST METHOD Blood / Unknown 06/14/2024 2 :45 AM EST 06/14/2024 2:55 AM EST us Nathaly Cristina MD LAB BLOOD ORDERABLES Final Resu lt Performing Organization Address City/[facility]/ZIP Co de Phone Number [facility] [address] [place] [address], [address] [place] [address] * Hepatitis B Surface Antibody Quantitation (06/14/2024 2:45 AM EST) [facility] Anti HBs quantitative <3.00 mIU/mL 06/14/2024 9:14 AM [facility] Comment: NOTE Vaccinated: >=10.00 mIU/mL, Positive (Immune) Unvaccinated: <10.00 mIU/mL, Negative (Not Immune) Interpretive values have changed due to implementation of a new method. Values run higher than previous method. Serum / Unknown 06/14/2024 2 :45 AM EST 06/14/2024 2:55 AM EST us Nathaly Cristina MD LAB BLOOD ORDERABLES Final Resu lt Performing Organization Address [facility]/ZIP Co de Phone Number [facility] [address] [place] [phone] * Hepatitis B surface antigen (06/14/2024 2:45 AM EST) Hepatitis B Surface Ag Non-Reacti ve Non-Reacti ve^Non-[place] ctive 06/14/2024 9:11 AM EST [facility] Comment:NEW TEST METHOD Serum / Unknown 06/14/2024 2 :45 AM EST 06/14/2024 2:55 AM EST us Nathaly Cristina MD LAB BLOOD ORDERABLES Final Resu lt Performing Organization Address [facility] Co de Phone Number [facility] [address] [place] [address] * Reticulocytes (06/14/2024 2:45 AM EST) Reticulocyte 2.2 0.4 - 2.2 % 06/14/2024 9:25 AM EST [facility] Blood / Unknown 06/14/2024 2 :45 AM EST 06/14/2024 2:55 AM EST us Nathaly Cristina MD LAB BLOOD ORDERABLES Final Resu lt Performing Organization Address [facility] Co de Phone Number [facility] [address] [place] [address], [address] [address] * Clinical Pathology Review (06/14/2024 12:00 AM EST) Only the most recent of2 resultswithin the time period is included. URPR 06/14/2024 06/17/2024 3:2 0 PM EDT Narrative COPATH - 06/17/2024 8:39 PM EDT [facility] [address] [place] [address] Clinical Pathology Report Patient Name:JUANITA REDMAN:1965 (Age: 59)Gender:FTaken:06/14/2024Reported:06/17/2024Physician(s):Katarina Trotter M.D. ([phone])Copy To: Rec. 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 No monoclonal protein identified. Report Electronically Signed Out df/06/17/2024Eben Pappas MD Interpretation performed at [facility], [address] [place] [address], License number: [id number]. Clinical History I48.91, J96.01, J96.00. URINE PROTEIN ELECTROPHORESIS SAMPLE NUMBER: [id number] RELATIVE ELECTROPHORETIC CONCENTRATIONS (%) ? 100.0 Urine Protein 820 mg/L (Electrophoretic gels and densitometric tracings on file in lab.) Specimen(s) Received Urine Protein Electrophoresis Fee Codes(s): 1; 36149-27 us Katarina Trotter MD PATHOLOGY/CYTOLOGY ORDERABL ES Final Result COPATH * (ABNORMAL) Troponin I, High Sensitivity 1 Hour (06/13/2024 8:54 PM EST) 1 Hour Trop I, High Sensitivity 58(H) <16 ng/L 06/13/2024 9:36 PM EST [facility] Comment: Elevations of hs-Troponin may be due to causes other than myocardial ischemia. Recommend serial hs-Troponin testing be performed. For the initial evaluation and management of chest pain patients, refer to the algorithms linked below. Emergency Patient: [email or web address] Inpatient: [email or web address] Blood Serum / Unknown 06/13/2024 8 :54 PM EST 06/13/2024 9:02 PM EST us Nathaly Cristina MD LAB BLOOD ORDERABLES Final Resu lt [facility] [address] [place] [address], [address] [place] [address] * (ABNORMAL) Mrsa Pcr nasal swab (06/13/2024 8:25 PM EST) Mrsa PCR Positive(A) Negative^N egative 06/13/2024 10:29 PM EST [facility] Nasal cavity structure / Unknown 06/13/2024 8:25 PM EST 06/13/2024 8:40 PM EST us Nathaly Cristina MD MICROBIOLOGY - GENERAL ORDERABL ES Final Result Performing Organization Address City/[facility]/ZIP Co de Phone Number [facility] [address] [facility], [address] [place] [address] * Resp Pathogens Panel/SARS CoV-2 (06/13/2024 8:25 PM EST) Specimen Source NASO PHARYNX 06/13/2024 8:05 PM EST [facility] Adenovirus Detection by PCR Not Detected Not Detected^No t Detected 06/13/2024 10:29 PM EST [facility] Coronavirus 229e Not Detected Not Detected^No t Detected 06/13/2024 10:29 PM EST [facility] Coronavirus hku1 Not Detected Not Detected^No t Detected 06/13/2024 10:29 PM [facility] Coronavirus nl63 Not Detected Not Detected^No t Detected 06/13/2024 10:29 PM [facility] Coronavirus oc43 Not Detected Not Detected^No t Detected 06/13/2024 10:29 PM [facility] Human metapneumovirus Not Detected Not Detected^No t Detected 06/13/2024 10:29 PM [facility] Rhinovirus/enterov irus Not Detected Not Detected^No t Detected 06/13/2024 10:29 PM [facility] Influenza A Not Detected Not Detected^No t Detected 06/13/2024 10:29 PM [facility] Influenza B Not Detected Not Detected^No t Detected 06/13/2024 10:29 PM [facility] Parainfluenza 1 Not Detected Not Detected^No t Detected 06/13/2024 10:29 PM [facility] Parainfluenza 2 Not Detected Not Detected^No t Detected 06/13/2024 10:29 PM [facility] Parainfluenza 3 Not Detected Not Detected^No t Detected 06/13/2024 10:29 PM [facility] Parainfluenza 4 Not Detected Not Detected^No t Detected 06/13/2024 10:29 PM [facility] Respiratory syncytial virus Not Detected Not Detected^No t Detected 06/13/2024 10:29 PM [facility] Bordetella parapertussis Not Detected Not Detected^No t Detected 06/13/2024 10:29 PM [facility] Bordetella pertussis Not Detected Not Detected^No t Detected 06/13/2024 10:29 PM [facility] Chlamydophila pneumophilia Not Detected Not Detected^No t Detected 06/13/2024 10:29 PM [facility] Mycoplasma pneumoniae Not Detected Not Detected^No t Detected 06/13/2024 10:29 PM [facility] SARS COV 2 Not Detected Not Detected^No t Detected 06/13/2024 10:29 PM [facility] Comment: NOTE The BioFire Respiratory Panel 2.1 (RP2.1) is a multiplexed nucleic acid test intended for the simultaneous qualitative detection and differentiation of nucleic acid from multiple viral and bacterial respiratory organisms, including nucleic acid from Severe Acute Respiratory Syndrome Coronavirus 2 (SARS-CoV-2), in nasopharyngeal swabs obtained from individuals suspected of COVID-19 by their healthcare provider. Testing is limited to laboratories certified under the Clinical Laboratory Improvement Amendments of 1988 (CLIA), to perform high complexity or moderate complexity tests. SARS-CoV-2 RNA and nucleic acids from the other respiratory viral and bacterial organisms identified by this test are generally detectable in nasopharyngeal swabs during the acute phase of infection. The detection and identification of specific viral and bacterial nucleic acids from individuals exhibiting signs and/or symptoms of respiratory infection is indicative of the presence of the identified microorganism and aids in the diagnosis of respiratory infection if used in conjunction with other clinical and epidemiological information. Positive results are indicative of the presence of the identified organism, but do not rule out co-infection with other pathogens. The agent(s) detected by the BioFire RP2.1 may not be the definite cause of disease and clinical correlation with patient history and other diagnostic information is necessary to determine patient infection status. Negative results in the setting of a respiratory illness may be due to infection with pathogens not detected by this test, or lower respiratory tract infection that may not be detected by a nasopharyngeal specimen. Negative results do not preclude SARS-CoV-2 infection and should not be used as the sole basis for patient management decisions. Negative JENNIFER-CoV-2 results must be combined with clinical observations, patient history and epidemiological information. Negative results for other organisms identified by the test may require additional laboratory testing when evaluating a patient with possible respiratory tract infection. Nasopharyngeal structure / Unknown 06/13/2024 8:25 PM EST 06/13/2024 8:39 PM EST us Nathaly Cristina MD MICROBIOLOGY - GENERAL ORDERABL ES Final Result [facility] [address] [facility] [place] [address] * (ABNORMAL) Procalcitonin (06/13/2024 7:54 PM EST) Procalcitonin 0.22(H) <0.05 ng/mL 06/13/2024 8:50 PM EST [facility] Comment: NOTE <0.50 ng/mL - Low risk of severe sepsis and/or septic shock. <2.00 ng/mL - Recommend retesting within 6-24 hours. >2.00 ng/mL - High risk of sepsis and/or septic shock. PLASMA 06/13/2024 7:54 PM EST 06/13/2024 8:06 PM EST us Nathaly Cristina MD LAB BLOOD ORDERABLES Final Resu lt Performing Organization Address City/[facility]/ZIP Co de Phone Number [facility] [address] [place] [address], [address] [address] * (ABNORMAL) Troponin I, High Sensitivity (06/13/2024 7:54 PM EST) Troponin I, High Sensitivity 61(H) <16 ng/L 06/13/2024 8:48 PM EST [facility] Comment: Elevations of hs-Troponin may be due to causes other than myocardial ischemia. Recommend serial hs-Troponin testing be performed. For the initial evaluation and management of chest pain patients, refer to the algorithms linked below. Emergency Patient: [email or web address] Inpatient: [email or web address] Blood Serum / Unknown 06/13/2024 7 :54 PM EST 06/13/2024 8:06 PM EST us Nathaly Cristina MD LAB BLOOD ORDERABLES Final Resu lt [facility] [address] [place] [address], [address] [address] * (ABNORMAL) B-type natriuretic peptide (06/13/2024 7:54 PM EST) BNP 1,765(H) <100.0 pg/mL 06/13/2024 9:14 PM EST [facility] PLASMA 06/13/2024 7:54 PM EST 06/13/2024 8:06 PM EST us Nathaly Cristina MD LAB BLOOD ORDERABLES Final Resu lt [facility] [address] [facility] [place] [address] * Ultrasound abdomen complete (06/13/2024 1:25 PM EST) us Scanning Provider External IMG US ORDERABLES Fin al Result * Vas venous duplex lwr bilateral (06/13/2024 1:05 PM EST) us Scanning Provider External CV VASCULAR ORDERABLE S Final Result [facility] Last 3 Months
--- OUTSIDE RECORDS SUMMARY | 2024-08-28 20:50 | XMS_ITS | Clinical Summary ---
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 [employer] Name Role Phone Unavailable Primary Care Provider Unavailabl e Social History Tobacco Use Types Packs/Day Years Used Date Smoking Tobacco: Never Assessed Sex and Gender Information Value Date Recorded Sex Assigned at Not on file Gender Identity Not on file Sexual Orientation Not on file Plan of Treatment Health Maintenance Due Date Last Done Comments CT Colonography 1965 Colonoscopy 1965 Colorectal Cancer Screening 1965 FIT-DNA 1965 FIT 1965 FOBT 1965 Sigmoidoscopy 1965 Pneumococcal Vaccine: Pediat rics (0 to 5 Years) and At-Risk Patients (6 to 64 Years) (1 of 2 - PCV) 1969 Depression Screening 1975 Pap Smear 01/31/1984 Adult Tetanus 1985 Cervical Cancer Screening 1993 HPV/Cotest 1993 Mammogram 2003 Zoster Vaccines (1 of 2) 2013 COVID-19 Vaccine (2023-2 5 season) 2023 Influenza Vaccine (Season Ended) 2024 HIB Vaccines Aged Out No longer eligi ble based on patient's age to complete this topic HPV Vaccines Aged Out No longer eligi ble based on patient's age to complete this topic IPV Vaccines Aged Out No longer eligi ble based on patient's age to complete this topic Meningococcal B Vaccine Aged Out No l onger eligible based on patient's age to complete this topic Meningococcal Vaccine Aged Out No keyana dennise eligible based on patient's age to complete this topic Rotavirus Vaccines Aged Out No longer eligible based on patient's age to complete this topic
--- OUTSIDE RECORDS SUMMARY | 2024-08-28 20:50 | XMS_ITS | Patient Health Record ---
Author Organization [facility] in [place] Address [address] [place] [address] Care Team Providers Care Field Coil Winder Name Role Phone Rogelio BLAIR, Salvador Primary Care Provider Ervin Patel Unavailable [phone] Results Component Value Reference Range Notes Occult Blood* Reviewed date:04/28/2024 02:48:05 PM Interpretation: Performing Lab: Notes/Report: [facility] , Occult Blood Positive Performing Lab: see note ML - [facility] LB BNP Reviewed date:04/28/2024 02:48:05 PM Interpretation: Performing Lab: Notes/Report: [facility] , NT Pro B Type Natriuretic Pept >74826.0 <=900.0 pg/mL RESULTS CALLED TO HOLLAND TERESA RN ON [employer] BY Jazz Vela at 0715 Performing Lab: see note - [facility] LB MAGNESIUM Reviewed date:04/28/2024 02:48:05 PM Interpretation: Performing Lab: Notes/Report: [facility] , Magnesium 1.3 1.8-2.4 mg/dL Performing Lab: see note ML - [facility] LB CBC no Diff (Hemogram) Reviewed date:04/28/2024 02:48:05 PM Interpretation: Performing Lab: Notes/Report: [facility] , White Blood Count 9.6 4.0-11.0 10 3/uL Red Blood Count 2.39 4.20-5.40 10 6/uL Hemoglobin 7.7 12.0-16.0 g/dL Hematocrit 24.3 36.0-48.0 % Mean Corpuscular Volume 101.7 81.0-99.0 fL Mean Corpuscular Hemoglobin 32.2 26.7-34.0 pg Mean Corpuscular HGB Conc 31.7 29.9-35.2 g/dL Red Cell Distribution Width 14.9 11.0-15.0 % Platelet Count 280 150-450 10 3/uL Mean Platelet Volume 8.9 9.5-13.5 fL Performing Lab: see note ML - [facility] MAGNESIUM Reviewed date:04/28/2024 02:48:05 PM Interpretation: Performing Lab: Notes/Report: [facility] , Magnesium 2.4 1.8-2.4 mg/dL Performing Lab: see note ML - [facility] AMMONIA Reviewed date:06/13/2024 09:09:42 PM Interpretation: Performing Lab: Notes/Report: [facility] , Ammonia 59 11-32 umol/L RESULTS CALLED TO efra brink rn @BY Delmi Quiles at 1113 Performing Lab: see note ML - [facility] AMYLASE Reviewed date:06/13/2024 09:09:42 PM Interpretation: Performing Lab: Notes/Report: [facility] , Amylase 39 25-115 U/L Performing Lab: see note ML - [facility] BLOOD GASES BTY Reviewed date:06/13/2024 09:09:42 PM Interpretation: Performing Lab: Notes/Report: [facility] , pH ABG 7.138 7.350-7.450 RESULTS CALLED TO EFRA BRINK RN ABG PCO2 57.5 35.0-45.0 mmHg RESULTS CRAIG D TO EFRA BRINK RN PO2 ABG 80.5 80.0-100.0 mmHg HCO3 ABG 19.5 22.0-26.0 mmol/L Base Excess ABG -9.6 -2.0-2.0 mmol/L Oxygen Saturation ABG 95.1 Jagdeep Test POSITIVE POSITIVE O2 Mode NC Liters per Minute 3 Puncture Site RR Performing Lab: see note ML - [facility] LB INFLUENZA A AND B AG Reviewed date:06/13/2024 09:09:42 PM Interpretation: Performing Lab: Notes/Report: [facility] , Influenza Virus A Antigen Negative below the detection limit of the test. Negative for Flu A protein antigen. Infection due to Flu A cannot be ruled out. Flu A antigen in the sample may be Influenza Virus B Antigen Negative below the detection limit of the test. Negative for Flu B protein antigen. Infection due to Flu B cannot be ruled out. Flu B antigen in the sample may be Performing Lab: see note ML - [facility] LB LACTATE or LACTIC ACID Reviewed date:06/13/2024 09:09:42 PM Interpretation: Performing Lab: Notes/Report: [facility] , Lactate/Lactic Acid 1.1 0.4-2.0 mmol/L Performing Lab: see note ML - [facility] LB LIPASE Reviewed date:06/13/2024 09:09:42 PM Interpretation: Performing Lab: Notes/Report: [facility] , Lipase 36.0 16.0-77.0 U/L Performing Lab: see note ML - [facility] LB RSV Reviewed date:06/13/2024 09:09:42 PM Interpretation: Performing Lab: Notes/Report: [facility] , Respiratory Syncytial Virus Not Detected NOT DETECTE Performing Lab: see note ML - [facility] LB Troponin I High Sensitivity Reviewed date:06/13/2024 09:09:42 PM Interpretation: Performing Lab: Notes/Report: [facility] , Troponin I High Sensitivity 77.7 4.0-51.3 pg/mL 1114 UNIVERSAL DEFINITION OF MYOCARDIAL INFARCTION. THE UPPER HAS BEEN CONFIRMED THE DECISION THRESHOLD FOR NH 99TH PERCENTILE = 51.4 PG/ML WITH OTHER DIAGNOSTIC AND CLINICAL INFORMATION. REFERENCE LIMIT (URL) OF TROPONIN, DEFINED THE 99TH USED IN ISOLATION BUT SHOULD BE INTERPRETED IN CONJUNCTION DIAGNOSIS. CUT-OFF POINTS HAVE BEEN ESTABLISHED BASED ON THE FOURTH RESULTS CALLED TO efra brink rn @BY Delmi Quiles at NOTE: HIGH-SENSITIVITY TROPONIN ASSAY IS NOT INTENDED TO BE PERCENTILE OF cTnI DISTRIBUTION IN A REFERENCE POPULATION, Performing Lab: see note ML - [facility] LB SARS-CoV-2 Ag* Reviewed date:06/13/2024 09:09:42 PM Interpretation: Performing Lab: Notes/Report: [facility] , SARS-CoV-2 Ag NEGATIVE NEGATIVE (EUA) for use by authorized laboratories certified under terminated or authorization is revoked sooner. the detection of proteins from SARS-CoV-2, not for any other authorized for the duration of the declaration that emergency use of in vitro diagnostic tests for detection viruses or pathogens. The emergency use of this test is complexity testing. This test has been authorized only for circumstances exist justifying the authorization of This test has not been FDA cleared or approved, but has been authorized by the FDA under an Emergency Use Authorization CLIA that meet the requirements to perform moderate or high and/or diagnosis of Covid-19 under section 564(b)(1) of the Act, 21 U.S.C. 360bbb-3(b)(1), unless the declaration is Performing Lab: see note ML - [facility] CA echo limited Reviewed date:06/13/2024 09:09:42 PM Interpretation: Performing Lab: Notes/Report: Source Facility: [place] [address] Cardiology Report Signed Patient: JUANITA REDMAN MR#: [id number] : 1965 Acct:[id number] Age/Sex: 59 / F ADM Date: 06/12/24 Loc: ICU 272-[address]: Dea Saavedra M.D. Ordering Physician: Dea Saavedra M.D. Date of Service: 06/13/24 Procedure(s): CA echo limited Accession Number(s): [id number] cc: Dea Saavedra M.D.; TAMMY WANG Patient Name: JUANITA REDMAN MR#: [id number] : 1965 Exam Date: 06/13/2024 Ordering Doctor: DR Dea Saavedra . ECHOCARDIOGRAM REPORT PROCEDURE: CA ECHO LIMITED INDICATIONS: Dyspnea, elevated BNP (>54270), heart failure with preserved ejection fraction, chronic kidney disease, COPD COMPARISON: None. DESCRIPTION: Limited ECHOCARDIOGRAM Real-time transthoracic echocardiography with 2D and M-mode performed. QUALITY: Technical quality was adequate. Limited echocardiogram per physician order. LEFT VENTRICLE: Normal chamber size. Mild concentric left ventricular hypertrophy. Systolic function is normal. LV EF: Normal left ventricular ejection fraction, (55%). DIASTOLIC: ATRIAL SEPTUM: LEFT ATRIUM: Mild dilatation. RIGHT ATRIUM: Severe dilatation. RIGHT VENTRICLE: Severe dilatation. Mildly reduced systolic function. TRICUSPID VALVE: Normal mobility and thickness. MITRAL VALVE: Normal mobility and thickness. AORTIC VALVE: Normal trileaflet appearance. No visible sclerosis. Normal leaflet mobility. AORTIC ROOT: Normal diameter and appearance. Ascending aorta is normal in size. PULMONIC VALVE: Normal thickness and mobility. PERICARDIUM: No evidence of pericardial effusion. IVC: IVC is dilated (2.8 cm), does not collapse. PLEURA: CONCLUSION: 1. Microcytic ventricular hypertrophy with normal systolic function. LVEF is 55%. 2. Severely dilated right ventricle with mildly reduced systolic function. 3. Severe right atrial dilatation. 4. Dilated inferior vena cava without inspiratory collapse. 5. Limited study performed with no Doppler interrogation as requested. Adult Echocardiography Procedure Report Left Ventricle LVEDD (3.7 - 5.6 cm): 4.03 cm LVESD (2.2 - 4.0 cm): 2.09 cm LVIVS thickness (0.6 - 1.2 cm): 0.92 cm LVPW thickness (0.5 - 1.0 cm): 1.24 cm LVOT Diameter 1.83 cm Left Atrium Left Atrium Systolic Dimension: 5.03 cm Mitral Valve Right Ventricle Aorta AO Root Diam: 2.41 cm Ascending Ao Diam: 2.53 cm Aortic Valve Tricuspid Valve Pulmonic Valve Right Atrium Right Atrium Systolic Pressure: 122.30 ml, 122.30 ml Dictated by: Karen France M.D. on 06/13/2024 at 15:15 Approved by: Karen France M.D. on 06/13/2024 at 15:18 Dictated By: KAREN FRANCE Signed By: 06/13/24 1519 DD/ 1518 TD/TT: Bicycle Taxi Driver: [place] [address] Cardiology Report Signed Patient: VAISHALI REDMAN MR#: [id number] : 1965 Acct:[id number] Age/Sex: 59 / F ADM Date: 06/12/24 Loc: ICU 272-[address]: Parish Saavedra M.D. Ordering Physician: Dea Saavedra M.D. Date of Service: 06/13/24 Procedure(s): CA ech o limited Accession Number(s): [id number] cc: Dea Saavedra M.D. ; TAMMY WANG Patient Name: JUANITA REDMAN MR#: [id number] : 1965 Exam Date: 06/13/2024 Ordering Doctor: DR Dea Saavedra . ECHOCARDIOGRAM REPORT PROCEDURE: CA ECHO LIMITED INDICATIONS: Dyspnea , elevated BNP (>51949), heart failure with preserved ejection fraction, chronic kidney disease, COPD COMPARISON: None. DESCRIPTION: Limited ECHOCARDIOGRAM Real-time transthoracic echocardiography wit h 2D and M-mode performed. QUALITY: Technical quality was adequate. Limited echocardiogram per physician order. LEFT VENTRICLE: Norm al chamber size. Mild concentric left ventricular hypertrophy. Systoli c function is normal. LV EF: Normal left ventricular ejection fraction, (55%). DIASTOLIC: ATRIAL SEPTUM: LEFT ATRIUM: Mild dilatation. RIGHT ATRIUM: Severe dilatation. RIGHT VENTRICLE: Sev ere dilatation. Mildly reduced systolic function. TRICUSPID VALVE: Nor mal mobility and thickness. MITRAL VALVE: Normal mobility and thickness. AORTIC VALVE: Normal trileaflet appearance. No visible sclerosis. Normal leaflet mobility. AORTIC ROOT: Normal diameter and appearance. Ascending aorta is normal in size. PULMONIC VALVE: Norm al thickness and mobility. PERICARDIUM: No evid ence of pericardial effusion. IVC: IVC is dilated (2.8 cm), does not collapse. PLEURA: CONCLUSION: 1. Microcytic ventricular hypertrophy with normal systolic function. LVEF is 55%. 2. Severely dilated right ventricle with mildly reduced systolic function. 3. Severe right atri al dilatation. 4. Dilated inferior vena cava without inspiratory collapse. 5. Limited study performed with no Doppler interrogation as requested. Adult Echocardiograp hy Procedure Report Left Ventricle LVEDD (3.7 - 5.6 cm) : 4.03 cm LVESD (2.2 - 4.0 cm) : 2.09 cm LVIVS thickness (0.6 - 1.2 cm): 0.92 cm LVPW thickness (0.5 - 1.0 cm): 1.24 cm LVOT Diameter 1.83 cm Left Atrium Left Atrium Systolic Dimension: 5.03 cm Mitral Valve Right Ventricle Aorta AO Root Diam: 2.41 cm Ascending Ao Diam: 2 .53 cm Aortic Valve Tricuspid Valve Pulmonic Valve Right Atrium Right Atrium Systoli c Pressure: 122.30 ml, 122.30 ml Dictated by: Karen France M.D. on 06/13/2024 at 15:15 Approved by: Karen France M.D. on 06/13/2024 at 15:18 Dictated By: KAREN FRANCE Signed By: 06/13/24 1519 DD/ 1518 TD/TT: Bicycle Tax[employer] Driver: Troponin I High Sensitivity Reviewed date:06/13/2024 09:09:42 PM Interpretation: Performing Lab: Notes/Report: [facility] , Troponin I High Sensitivity 78.0 4.0-51.3 pg/mL NOTE: HIGH-SENSITIVITY TROPONIN ASSAY IS NOT INTENDED TO BE CUT-OFF POINTS HAVE BEEN ESTABLISHED BASED ON THE FOURTH REFERENCE LIMIT (URL) OF TROPONIN, DEFINED THE 99TH WITH OTHER DIAGNOSTIC AND CLINICAL INFORMATION. 99TH PERCENTILE = 51.4 PG/ML UNIVERSAL DEFINITION OF MYOCARDIAL INFARCTION. THE UPPER HAS BEEN CONFIRMED THE DECISION THRESHOLD FOR NH USED IN ISOLATION BUT SHOULD BE INTERPRETED IN CONJUNCTION DIAGNOSIS. RESULTS CALLED TO EFRA BRINK RN PERCENTILE OF cTnI DISTRIBUTION IN A REFERENCE POPULATION, Performing Lab: see note ML - [facility] LB BLOOD GASES BTY Reviewed date:06/13/2024 09:09:42 PM Interpretation: Performing Lab: Notes/Report: [facility] , pH ABG 7.181 7.350-7.450 RESULTS CALLED TO BING PACHECO RN ABG PCO2 53.0 35.0-45.0 mmHg RESULTS CRAIG D TO BING PACHECO RN PO2 ABG 120.0 80.0-100.0 mmHg HCO3 ABG 19.8 22.0-26.0 mmol/L Base Excess ABG -8.6 -2.0-2.0 mmol/L Oxygen Saturation ABG 99.5 Jagdeep Test POSITIVE POSITIVE O2 Mode BIPAP Fractionated Inspired Oxygen 35 Puncture Site RR BIPAP Pressure 16/[address] Rate 12 Tidal Volume 466 Minute Volume 9.3 Performing Lab: see note ML - [facility] LB TSH Reviewed date:06/13/2024 09:09:42 PM Interpretation: Performing Lab: Notes/Report: [facility] , Thyroid Stimulating Hormone 13.271 0.358-3.740 uIU/mL Performing Lab: see note ML - [facility] LB T4 Reviewed date:06/13/2024 09:09:42 PM Interpretation: Performing Lab: Notes/Report: [facility] , T4 Thyroxine 2.20 4.80-13.90 ug/dL Performing Lab: see note ML - [facility] LB MAGNESIUM Reviewed date:06/13/2024 09:09:42 PM Interpretation: Performing Lab: Notes/Report: [facility] , Magnesium 1.0 1.8-2.4 mg/dL Performing Lab: see note ML - [facility] LB US venous doppler UE RT Reviewed date:04/28/2024 02:48:05 PM Interpretation: Performing Lab: Notes/Report: Source Facility: [place] [address] [place] [address] Ultrasound Report Signed Patient: JUANITA REDMAN MR#: [id number] : 1965 Acct:[id number] Age/Sex: 59 / F ADM Date: 04/21/24 Loc: MS 218-[address]: Dea Saavedra M.D. Ordering Physician: Dea Saavedra M.D. Date of Service: 04/27/24 Procedure(s): US venous doppler UE RT Accession Number(s): [id number] cc: VIGNESH ALVARADO Douglas M.D. [place] [address] Patient Name: JUANITA REDMAN MRN: [id number] date: 1965 Sex: F Assigned Patient Location: MS Current Patient Location: MS Accession/Order Number: [id number] Exam Date: 04/27/2024 11:42 Report Date: 04/27/2024 13:07 At the request of: DEA SAAVEDRA Procedure: US venous doppler UE RT PROCEDURE: US venous doppler UE RT, 04/27/2024 11:42 AM EST CLINICAL INDICATIONS: Progressive right upper extremity edema for one week, chronic heart failure, recent fall 6 days earlier COMPARISON: None TECHNIQUE: Right upper extremity duplex, grayscale, color and spectral assessment. FINDINGS: The visualized right internal jugular, right subclavian, right axillary, right brachial, right basilic, right cephalic, right antecubital, right radial, right ulnar vein show no sign of filling defect on grayscale or color assessment. There is apparent compressibility throughout the imaged segments. Spectral assessment shows spontaneous antegrade venous waveform with normal velocity response to augmentation and respirations. Subcutaneous edema is present. US/US venous doppler UE RT IMPRESSION: 1. Right upper extremity subcutaneous edema 2. No sign of right upper extremity deep venous thrombosis. Electronically authenticated by: YEHUDA SMALL Date: 04/27/2024 13:07 Dictated By: Yehuda Small M.D. Signed By: 04/27/24 1310 DD/ 1307 TD/TT: Bicycle Taxi Driver: [place] [address] Ultrasound Report Signed Patient: VAISHALI REDMAN MR#: [id number] : 1965 Acct:[id number] Age/Sex: 59 / F ADM Date: 04/21/24 Loc: MS 218-[address]: Parish Saavedra M.D. Ordering Physician: Dea Saavedra M.D. Date of Service: 04/27/24 Procedure(s): US mikey ous doppler UE RT Accession Number(s): [id number] cc: VIGNESH ALVARADO Douglas M.D. [place] [address] Patient Name: JUANITA REDMAN MRN: [id number] date: 1965 Sex: F Assigned Patient Location: MS Current Patient Location: MS Accession/Order Numb er: [id number] Exam Date: 04/27/2024 11:42 Report Date: 04/27/2024 13:07 At the request of: DEA SAAVEDRA Procedure: US venous doppler UE RT PROCEDURE: US venous doppler UE RT, 04/27/2024 11:42 AM EST CLINICAL INDICATIONS : Progressive right upper extremity edema for one week, chronic heart failur e, recent fall 6 days earlier COMPARISON: None TECHNIQUE: Right upp er extremity duplex, grayscale, color and spectral assessment. FINDINGS: The visualized right internal jugular, right subclavian, right axillary, right brachial, right basi lic, right cephalic, right antecubital, right radial, right ulnar vein show no s ign of filling defect on grayscale or color assessment. There is apparent compressibility throughout the imaged segments. Spectral assessment shows spontaneous antegrade venous waveform with normal velocity response to augmentation and respirations. Subcutaneous edema i s present. U S/US venous doppler UE RT IMPRESSION: 1. Right upper extre mity subcutaneous edema 2. No sign of right upper extremity deep venous thrombosis. Electronically authenticated by: YEHUDA SMALL Date: 04/27/2024 13:07 Dictated By: Yehuda Small M.D. Signed By: 04/27/24 1310 DD/ 1307 TD/TT: Bicycle Taxi Driver: XR chest 2V Reviewed date:04/28/2024 02:48:05 PM Interpretation: Performing Lab: Notes/Report: Source Facility: [place] [address] XRay Report Signed Patient: JUANITA REDMAN MR#: [id number] : 1965 Acct:[id number] Age/Sex: 59 / F ADM Date: 04/21/24 Loc: MS 218-[address]: Dea Saavedra M.D. Ordering Physician: Dea Saavedra M.D. Date of Service: 04/27/24 Procedure(s): XR chest 2V Accession Number(s): [id number] cc: VIGNESH ALVARADO Douglas M.D. [place] [address] Patient Name: JUANITA REDMAN MRN: [id number] date: 1965 Sex: F Assigned Patient Location: MS Current Patient Location: MS Accession/Order Number: [id number] Exam Date: 04/27/2024 13:00 Report Date: 04/27/2024 14:28 At the request of: DEA SAAVEDRA Procedure: XR chest 2V EXAMINATION: XR chest 2V REASON FOR EXAM: Increasing LAL. COMPARISON STUDY: 04/21/2024. TECHNIQUE: 2 views. FINDINGS: There is cardiomegaly and pulmonary venous congestion with interstitial prominence and mild volume pleural effusions and fissural thickening. Findings suggest volume overload. Focal atelectasis identified in the left lower lobe. No pneumothorax. XR/XR chest 2V IMPRESSION: 1. Findings suggest volume overload with interstitial edema and mild volume bilateral pleural effusions, left greater than right. 2. Associated atelectasis at left base. Electronically authenticated by: SANDY RASHID Date: 04/27/2024 14:28 Dictated By: Sandy Rashid M.D. Signed By: 04/27/24 1431 DD/ 1428 TD/TT: Bicycle Taxi Driver: [place] [address] XRay Report Signed Patient: VAISHALI REDMAN MR#: [id number] : 1965 Acct:[id number] Age/Sex: 59 / F ADM Date: 04/21/24 Loc: MS 218-[address]: Parish Saavedra M.D. Ordering Physician: Dea Saavedra M.D. Date of Service: 04/27/24 Procedure(s): XR pedro st 2V Accession Number(s): [id number] cc: MARIA DE JESUS ALVARADO; Dea Saavedra M.D. [facility] [place] [id number] Patient Name: JUANITA REDMAN MRN: [id number] date: 1965 Sex: F Assigned Patient Location: MS Current Patient Location: MS Accession/Order Numb er: [id number] Exam Date: 04/27/2024 13:00 Report Date: 04/27/2024 14:28 At the request of: DEA SAAVEDRA Procedure: XR chest 2V EXAMINATION: XR chest 2V REASON FOR EXAM: Increasing LAL. COMPARISON STUDY: 04/21/2024. TECHNIQUE: 2 views. FINDINGS: There is cardiomegaly and pulmonary venous congestion with interstitial promine nce and mild volume pleural effusions and fissural thickening. Findings suggest volume overload. Focal atelectasis identified in the left lower lobe. No pneumothorax. X R/XR chest 2V IMPRESSION: 1. Findings suggest volume overload with interstitial edema and mild volume bilateral pleural effusions, left greater than right. 2. Associated atelectasis at left base. Electronically authenticated by: SANDY RASHID Date: 04/27/2024 14:28 Dictated By: Sandy Rashid M.D. Signed By: 04/27/24 1431 DD/ 1428 TD/TT: Bicycle Taxi Driver: Venous Blood Gas Reviewed date:06/13/2024 09:09:42 PM Interpretation: Performing Lab: Notes/Report: [facility] , pH VBG 7.172 7.330-7.430 PCO2 VBG 51.2 40.0-52.0 mmHg Performing Lab: see note ML - [facility] LB Reason For Referral No Information Problems Problem Type SNOMED Code ICD Code Onset Dates Problem Status W/U Status Risk Notes Problem Hypomagnesemia (866955730) Hypomagnesemia (E83.42) Active confirmed Problem Hypocalcemia (8976824) Hypocalcemia (E83.51) Active confirmed Problem Hepatorenal syndrome (94484436) Hepatorenal syndrome (K76.7) Active confirmed Problem End stage renal disease (33384999) End stage renal disease (N18.6) Active confirmed Problem Weakness (56211405) Weakness (R53.1) Active confirmed Problem Atrial fibrillation (81093201) Atrial fibrillation (I48.91) Active confirmed Problem Hypothyroidism (70098156) Hypothyroidism (E03.9) Active confirmed Problem Atrial fibrillation (33563194) Paroxysmal a-fib (I48.0) Active confirmed Problem Essential hypertension (34618857) Benign essential HTN (I10) Active confirmed Problem Congestive heart failure (81371789) CHF (congestive heart failure) (I50.9) Active confirmed Problem Hypoalbuminemia (395224171) Hypoalbuminemia (E88.09) Active confirmed Problem Mixed anxiety and depressive disorder (256806371) Anxiety and depression (F41.9) Active confirmed Problem Alcohol withdrawal delirium (1609089) Alcohol withdrawal delirium (F10.231) Active confirmed Problem Metabolic encephalopathy (10569774) Acute metabolic encephalopathy (G93.41) Active confirmed Problem Heart failure (50678829) Acute on chronic heart failure, unspecified heart failure type (I50.9) Active confirmed Problem Pulmonary hypertension (64079201) Pulmonary hypertension (I27.20) Active confirmed Problem Chronic diastolic heart failure (811950146) Chronic heart failure with preserved ejection fraction (I50.32) Active confirmed Encounters Encounter Location Date Provider Diagnosis [facility] [address] [place] [address] 08/14/2024 Ervin Aguilar Plan Of Treatment No Information Insurance Providers Payer Name Payer Address Payer Phone Subscriber Number Group Number Insured Name Patient Relationship to Insured Coverage Start Date Coverage End Date [employer] [place] [employer] [address] [facility] [address] [place] [address] [id number] Juanita Redman Self - patient is the insured
--- OUTSIDE RECORDS SUMMARY | 2024-08-28 20:50 | XMS_ITS | Referral Summary ---
Author Organization [facility] Address [address] [place] [address] Care Team Providers Care Monument Letterer Name Role Phone Unavailable Primary Care Provider Unavailabl e Social History Tobacco Use Types Packs/Day Years Used Date Smoking Tobacco: Never Assessed Sex and Gender Information Value Date Recorded Sex Assigned at Not on file Gender Identity Not on file Sexual Orientation Not on file Plan of Treatment Not on file
--- OUTSIDE RECORDS SUMMARY | 2024-08-28 20:51 | XMS_ITS | Patient Health Record ---
Author Organization [facility] Address [address] [facility] [address] [place] [address] Care Team Providers Care Data Conversion Analyst Name Role Phone NISSA RAFAEL Unavailable [phone] EKATERINA ROSALES Unavailable [phone] SANJANA DOUGHERTY Unavailable [phone] Reason For Referral No Information Problems Problem Type SNOMED Code ICD Code Onset Dates Problem Status W/U Status Risk Notes Problem Pulmonary hypertension (24713904) Pulmonary hypertension, unspecified (I27.20) Active confirmed Problem Ordmt-hz-fwntoaw hypercapnic respiratory failure (disorder) (7469716181843) Acute on chronic respiratory failure with hypercapnia (J96.22) Active confirmed Problem Congestive heart failure (02693214) Congestive heart failure (I50.9) Active confirmed Problem Fsdho-yt-tvmqvbw hypoxemic respiratory failure (disorder) (938510470049997 00) Acute on chronic hypoxic respiratory failure (J96.21) Active confirmed Encounters Encounter Location Date Provider Diagnosis [address] [id number] 07/04/2024 EKATERINA ROSALES Respiratory failur e, unspecified, unspecified whether with hypoxia or hypercapnia J96.90 and Pulmonary hypertension, unspecified I27.[address] [id number] 07/06/2024 RAFAEL AZAR Respiratory failur e, unspecified, unspecified whether with hypoxia or hypercapnia J96.90 and Pulmonary hypertension, unspecified I27.[address] [id number] 07/09/2024 RAFAEL AZAR Respiratory failur e, unspecified, unspecified whether with hypoxia or hypercapnia J96.90 and Pulmonary hypertension, unspecified I27.[address] [id number] 07/11/2024 SANJANA DOUGHERTY Respiratory failur e, unspecified, unspecified whether with hypoxia or hypercapnia J96.90 and Pulmonary hypertension, unspecified I27.[address] [id number] 07/13/2024 RAFAEL AZAR Respiratory failur e, unspecified, unspecified whether with hypoxia or hypercapnia J96.90 and Pulmonary hypertension, unspecified I27.[address] [id number] 07/16/2024 [facility] Respiratory failur e, unspecified, unspecified whether with hypoxia or hypercapnia J96.90 and Pulmonary hypertension, unspecified I27.[address] [id number] 07/18/2024 [facility] [place] Respiratory failur e, unspecified, unspecified whether with hypoxia or hypercapnia J96.90 and Pulmonary hypertension, unspecified I27.[address] [id number] 07/20/2024 RAFAEL AZAR Respiratory failur e, unspecified, unspecified whether with hypoxia or hypercapnia J96.90 and Pulmonary hypertension, unspecified I27.[address] [id number] 07/23/2024 EKATERINA ROSALES Acute on chronic hypoxic respiratory failure J96.21 ; Acute on chronic respiratory failure with hypercapnia J96.22 ; Pulmonary hypertension, unspecified I27.20 and Congestive heart failure I50.[address] [id number] 07/25/2024 EKATERINA ROSALES Acute on chronic hypoxic respiratory failure J96.21 ; Acute on chronic respiratory failure with hypercapnia J96.22 ; Pulmonary hypertension, unspecified I27.20 and Congestive heart failure I50.[address] [id number] 07/27/2024 RAFAEL AZAR Acute on chronic hypoxic respiratory failure J96.21 ; Acute on chronic respiratory failure with hypercapnia J96.22 ; Pulmonary hypertension, unspecified I27.20 and Congestive heart failure I50.[address] [id number] 07/30/2024 KELCEE ROSALES Acute on chronic hypoxic respiratory failure J96.21 ; Acute on chronic respiratory failure with hypercapnia J96.22 ; Pulmonary hypertension, unspecified I27.20 and Congestive heart failure I50.9 [place] [address] [id number] 08/01/2024 KELCEE ROSALES Acute on chronic hypoxic respiratory failure J96.21 ; Acute on chronic respiratory failure with hypercapnia J96.22 ; Pulmonary hypertension, unspecified I27.20 and Congestive heart failure I50.9 [place] [address] [id number] 08/03/2024 KELCEE ROSALES Acute on chronic hypoxic respiratory failure J96.21 ; Acute on chronic respiratory failure with hypercapnia J96.22 ; Pulmonary hypertension, unspecified I27.20 and Congestive heart failure I50.9 [place] [address] [id number] 08/06/2024 KELCEE ROSALES Acute on chronic hypoxic respiratory failure J96.21 ; Acute on chronic respiratory failure with hypercapnia J96.22 ; Pulmonary hypertension, unspecified I27.20 and Congestive heart failure I50.9 [place] [address] [id number] 08/08/2024 KELCEE ROSALES Acute on chronic hypoxic respiratory failure J96.21 ; Acute on chronic respiratory failure with hypercapnia J96.22 ; Pulmonary hypertension, unspecified I27.20 and Congestive heart failure I50.9 [place] [address] [id number] 08/10/2024 KELCEE ROSALES Acute on chronic hypoxic respiratory failure J96.21 ; Acute on chronic respiratory failure with hypercapnia J96.22 ; Pulmonary hypertension, unspecified I27.20 and Congestive heart failure I50.9 [place] [address] [id number] 08/17/2024 RAFAEL AZAR Acute on chronic hypoxic respiratory failure J96.21 ; Acute on chronic respiratory failure with hypercapnia J96.22 ; Pulmonary hypertension, unspecified I27.20 and Congestive heart failure I50.9 [place] [address] [id number] 08/24/2024 RAFAEL AZAR Acute on chronic hypoxic respiratory failure J96.21 ; Acute on chronic respiratory failure with hypercapnia J96.22 ; Pulmonary hypertension, unspecified I27.20 and Congestive heart failure I50.9 Assessments Encounter Date Diagnosis (ICD Code) Assessment Notes Treatment Notes Treatment Clinical Notes Section Notes 07/04/2024 Respiratory failure, unspecified, unspecified whether with hypoxia or hypercapnia (ICD-10 - J96.90) 07/04/2024 Pulmonary hypertension, unspecified (ICD-10 - I27.20) 07/06/2024 Respiratory failure, unspecified, unspecified whether with hypoxia or hypercapnia (ICD-10 - J96.90) 07/09/2024 Respiratory failure, unspecified, unspecified whether with hypoxia or hypercapnia (ICD-10 - J96.90) 07/11/2024 Respiratory failure, unspecified, unspecified whether with hypoxia or hypercapnia (ICD-10 - J96.90) 07/13/2024 Respiratory failure, unspecified, unspecified whether with hypoxia or hypercapnia (ICD-10 - J96.90) 07/16/2024 Respiratory failure, unspecified, unspecified whether with hypoxia or hypercapnia (ICD-10 - J96.90) 07/18/2024 Respiratory failure, unspecified, unspecified whether with hypoxia or hypercapnia (ICD-10 - J96.90) 07/20/2024 Respiratory failure, unspecified, unspecified whether with hypoxia or hypercapnia (ICD-10 - J96.90) 07/23/2024 Acute on chronic respiratory failure with hypercapnia (ICD-10 - J96.22) 07/23/2024 Acute on chronic hypoxic respiratory failure (ICD-10 - J96.21) 07/25/2024 Acute on chronic hypoxic respiratory failure (ICD-10 - J96.21) 07/27/2024 Acute on chronic hypoxic respiratory failure (ICD-10 - J96.21) 07/30/2024 Acute on chronic hypoxic respiratory failure (ICD-10 - J96.21) 08/01/2024 Acute on chronic hypoxic respiratory failure (ICD-10 - J96.21) 08/03/2024 Acute on chronic hypoxic respiratory failure (ICD-10 - J96.21) 08/06/2024 Acute on chronic hypoxic respiratory failure (ICD-10 - J96.21) 08/08/2024 Acute on chronic hypoxic respiratory failure (ICD-10 - J96.21) 08/10/2024 Acute on chronic hypoxic respiratory failure (ICD-10 - J96.21) 08/17/2024 Acute on chronic hypoxic respiratory failure (ICD-10 - J96.21) 08/24/2024 Acute on chronic hypoxic respiratory failure (ICD-10 - J96.21) 08/24/2024 Acute on chronic respiratory failure with hypercapnia (ICD-10 - J96.22) 08/17/2024 Acute on chronic respiratory failure with hypercapnia (ICD-10 - J96.22) 08/10/2024 Acute on chronic respiratory failure with hypercapnia (ICD-10 - J96.22) 08/08/2024 Acute on chronic respiratory failure with hypercapnia (ICD-10 - J96.22) 08/06/2024 Acute on chronic respiratory failure with hypercapnia (ICD-10 - J96.22) 08/03/2024 Acute on chronic respiratory failure with hypercapnia (ICD-10 - J96.22) 08/01/2024 Acute on chronic respiratory failure with hypercapnia (ICD-10 - J96.22) 07/30/2024 Acute on chronic respiratory failure with hypercapnia (ICD-10 - J96.22) 07/27/2024 Acute on chronic respiratory failure with hypercapnia (ICD-10 - J96.22) 07/25/2024 Acute on chronic respiratory failure with hypercapnia (ICD-10 - J96.22) 07/20/2024 Pulmonary hypertension, unspecified (ICD-10 - I27.20) 07/23/2024 Pulmonary hypertension, unspecified (ICD-10 - I27.20) 07/18/2024 Pulmonary hypertension, unspecified (ICD-10 - I27.20) 07/16/2024 Pulmonary hypertension, unspecified (ICD-10 - I27.20) 07/13/2024 Pulmonary hypertension, unspecified (ICD-10 - I27.20) 07/11/2024 Pulmonary hypertension, unspecified (ICD-10 - I27.20) 07/09/2024 Pulmonary hypertension, unspecified (ICD-10 - I27.20) 07/06/2024 Pulmonary hypertension, unspecified (ICD-10 - I27.20) 07/27/2024 Pulmonary hypertension, unspecified (ICD-10 - I27.20) 07/25/2024 Pulmonary hypertension, unspecified (ICD-10 - I27.20) 07/23/2024 Congestive heart failure (ICD-10 - I50.9) 07/30/2024 Pulmonary hypertension, unspecified (ICD-10 - I27.20) 08/01/2024 Pulmonary hypertension, unspecified (ICD-10 - I27.20) 08/03/2024 Pulmonary hypertension, unspecified (ICD-10 - I27.20) 08/06/2024 Pulmonary hypertension, unspecified (ICD-10 - I27.20) 08/08/2024 Pulmonary hypertension, unspecified (ICD-10 - I27.20) 08/10/2024 Pulmonary hypertension, unspecified (ICD-10 - I27.20) 08/17/2024 Pulmonary hypertension, unspecified (ICD-10 - I27.20) 08/24/2024 Pulmonary hypertension, unspecified (ICD-10 - I27.20) 08/17/2024 Congestive heart failure (ICD-10 - I50.9) 08/10/2024 Congestive heart failure (ICD-10 - I50.9) 08/24/2024 Congestive heart failure (ICD-10 - I50.9) 08/08/2024 Congestive heart failure (ICD-10 - I50.9) 08/06/2024 Congestive heart failure (ICD-10 - I50.9) 08/03/2024 Congestive heart failure (ICD-10 - I50.9) 08/01/2024 Congestive heart failure (ICD-10 - I50.9) 07/30/2024 Congestive heart failure (ICD-10 - I50.9) 07/27/2024 Congestive heart failure (ICD-10 - I50.9) 07/25/2024 Congestive heart failure (ICD-10 - I50.9) 07/16/2024 Other Seen in collaboration and discussed plan of care with Dr. Rafael Azar 07/18/2024 Other Seen in collaboration and discussed plan of care with Dr. Rafael Azar 07/23/2024 Other Seen in collaboration and discussed plan of care with Dr. Rafael Azar 07/25/2024 Other Seen in collaboration and discussed plan of care with Dr. Rafael Azar 07/30/2024 Other Seen in collaboration and discussed plan of care with Dr. Rafael Azar 08/01/2024 Other Seen in collaboration and discussed plan of care with Dr. Rafael Azar 08/03/2024 Other Seen in collaboration and discussed plan of care with Dr. Rafael Azar 08/06/2024 Other Seen in collaboration and discussed plan of care with Dr. Rafael Azar 08/08/2024 Other Seen in collaboration and discussed plan of care with Dr. Rafael Azar 08/10/2024 Other Seen in collaboration and discussed plan of care with Dr. Rafael Azar Plan Of Treatment No Information Insurance Providers Payer Name Payer Address Payer Phone Subscriber Number Group Number Insured Name Patient Relationship to Insured Coverage Start Date Coverage End Date [employer] [place] [employer] [address] [phone] [id number] Juanita Redman Self - patient is the insured
--- OUTSIDE RECORDS SUMMARY | 2024-08-28 20:51 | XMS_ITS | Encounter Summary ---
Author Organization [facility] Address [address] [place] [address] Care Team Providers Care Software Project Engineer Name Role Phone Katie Velasquez NP Primary Care Provider Encounter Details Date Type Department Care Team (Late st Contact Info) Description 08/16/2024 Telephone [facility] [address] [facility] [address] [place] [id number] Fatimah Andres NP [address] [facility] [address] [place], [place] [id number] Social History Tobacco Use Types Packs/Day Years Used Date Smoking Tobacco: Never Assessed Comments Unknown Sex and Gender Information Value Date Recorded Sex Assigned at Not on file Legal Sex Female 7:05 PM EDT Gender Identity Not on file Sexual Orientation Not on file documented as of this encounter Miscellaneous Notes * Telephone Encounter - Fatimah Andres NP - 08/16/2024 1:59 PM EDT Requested Prescriptions Signed Prescriptions Disp Refills LORazepam (Ativan) 1 MG tablet 30 tablet 0 Sig: Take 1 tablet (1 mg) by mouth Daily Give daily before HD on dialysis days Authorizing Provider: FATIMAH ANDRES documented in this encounter Plan of Treatment Not on file documented as of this encounter Visit Diagnoses Diagnosis Anxiety about treatment- Primary documented in this encounter Care Teams Software Project Engineer Relationship Specialty Start Date End Date Katie Velasquez NP [address] [place] [address] [place] [address] PCP - General Family Medicine 01/16/24 documented as of this encounter
--- OUTSIDE RECORDS SUMMARY | 2024-08-28 20:51 | XMS_ITS | Clinical Summary ---
Author Organization [facility] Address [address] [place] [address] Phone Care Team Providers Care Actuarial Clerk Name Role Phone Unavailable Primary Care Provider Unavailabl e Social History Tobacco Use Types Packs/Day Years Used Date Smoking Tobacco: Never Assessed Comments Unknown Sex and Gender Information Value Date Recorded Sex Assigned at Not on file Legal Sex Female 4:41 AM EST Gender Identity Not on file Sexual Orientation Not on file Plan of Treatment Health Maintenance Due Date Last Done Comments CT Colonography 1963 Colonoscopy 1963 Colorectal Cancer Screening 1963 FIT-DNA (Cologuard) 1963 FIT 1963 HIV Screening 1963 Lipid Panel 1963 Sigmoidoscopy 1963 Yearly Adult Physical 1963 MMR Vaccines (1 of 1 - Stand reginald series) 01/31/1964 Hepatitis C Screening 1981 Cervical Cancer Screening 01/31/1984 HPV/Cotest 01/31/1984 Pap Smear 01/31/1984 DTaP/Tdap/Td Vaccines (1 - Tdap) 1985 Mammogram 2003 Pneumococcal Vaccine (1 of 1 - PCV) 2013 Zoster Vaccines (1 of 2) 2013 COVID-19 Vaccine (1 - 2023-2 5 season) 2023 Influenza Vaccine (Season Ended) 2024 RSV High Risk: (Elderly (60+ ) or Population) (1 - 1-dose 75+ series) 2038 HIB Vaccines Aged Out No longer eligi ble based on patient's age to complete this topic HPV Vaccines Aged Out No longer eligi ble based on patient's age to complete this topic Hepatitis A Vaccines Aged Out No long er eligible based on patient's age to complete this topic Hepatitis B Vaccines Aged Out No long er eligible based on patient's age to complete this topic IPV Vaccines Aged Out No longer eligi ble based on patient's age to complete this topic Meningococcal Vaccine Aged Out No keyana dennise eligible based on patient's age to complete this topic Rotavirus Vaccines Aged Out No longer eligible based on patient's age to complete this topic
--- OUTSIDE RECORDS SUMMARY | 2024-08-28 20:51 | XMS_ITS | Clinical Summary ---
Author Organization [facility] Address [address] [place] [address] Care Team Providers Care Hydrological Technical Officer Name Role Phone House Sr., Segundo MAXWELL Primary Care Provider + Social History Tobacco Use Types Packs/Day Years Used Date Smoking Tobacco: Never Assessed Comments Unknown Sex and Gender Information Value Date Recorded Sex Assigned at Not on file Legal Sex Female 2:24 PM EST Gender Identity Not on file Sexual Orientation Not on file Plan of Treatment Health Maintenance Due Date Last Done Comments Anxiety Screening 1981 Depression Screening 1981 HIV Screening 1981 Hepatitis C Screening 1981 DTaP,Tdap,Td Vaccine (1 - Tdap) 1982 Cervical Cancer Screening 01/31/[address] Colonography 01/31/2008 Cologuard (FIT-DNA) 01/31/2008 Colonoscopy 01/31/2008 Colorectal Cancer Screening 01/31/2008 Diabetes Screening 01/31/2008 Fecal Occult Blood 01/31/2008 Lipid Screening 01/31/2008 Sigmoidoscopy 01/31/2008 Pneumococcal Vaccine: 50+ (1 of 1 - PCV) 2013 Shingrix Vaccine (1 of 2) 2013 Covid-19 Vaccine (1 - 2023- season) 2023 Influenza Vaccine (Season Ended) 2024 RSV Vaccine (1 - 1-dose 75+ series) 2038 Insurance [facility] MEDICAID Care Teams Hydrological Technical Officer Relationship Specialty Start Date End Date Segundo Rawls Sr., DO PCP - General Family Medicine 04/18/18
--- OUTSIDE RECORDS SUMMARY | 2024-08-28 20:51 | XMS_ITS | Clinical Summary ---
Author Organization [facility] Address [address] [facility] [place] [address] Care Team Providers Care Child Support Officer Name Role Phone Katie Velasquez SET O TYPE OPERATOR Primary Care Provider Medications LORazepam (Ativan) 1 MG tabletIndicatio ns:Anxiety about treatment Take 1 tablet (1 mg) by mouth Daily Give daily before HD on dialysis days 30 tablet 08/17/19 25 025 Active LORazepam (Ativan) 0.5 MG tabletIndicatio ns:Anxiety disorder, unspecified type Take 1 tablet (0.5 mg) by mouth every 8 (eight) hours if needed for anxiety for up to 14 days 42 tablet 08/27/19 25 025 Active LORazepam (Ativan) 0.5 MG tabletIndicatio ns:Anxiety about treatment Take 2 tablets (1 mg) by mouth Daily for 14 days Give daily before HD on Mon, , Mon, , Monday. 28 tablet 07/27/19 25 025 Discontinued Encounters Date Type Department Care Team Description 08/26/2024 Telephone [facility] [address] [place] [address] [place] [phone] Fatimah Andres, SET O TYPE OPERATOR 08/16/2024 Telephone [facility] [address] [place] [address] [place] [phone] Fatimah Andres, SET O TYPE OPERATOR 07/26/2024 Telephone [facility] [address] [place] [address] [place] [phone] Fatimah Andres, SET O TYPE OPERATOR 07/18/2024 Abstract [facility] [address] [place] [address] [place] [address] Unallocated, Anita Armstrong MD from Last 3 Months Social History Tobacco Use Types Packs/Day Years Used Date Smoking Tobacco: Never Assessed Comments Unknown Sex and Gender Information Value Date Recorded Sex Assigned at Not on file Legal Sex Female 7:05 PM EDT Gender Identity Not on file Sexual Orientation Not on file Plan of Treatment Not on file Insurance [employer] Care Teams Child Support Officer Relationship Specialty Start Date End Date Katie Velasquez NP [address] [facility] [place] [address] [place] [address] PCP - General Family Medicine 01/16/24
--- OUTSIDE RECORDS SUMMARY | 2024-08-28 20:51 | XMS_ITS | Encounter Summary ---
Author Organization [facility] Address [address] [place] [address] Care Team Providers Care Media Professional Name Role Phone Katie Velasquez NP Primary Care Provider Encounter Details Date Type Department Care Team (Late st Contact Info) Description 08/26/2024 Telephone [facility] [address] [facility] [address] [place] [phone] Fatimah Andres NP [address] [facility] [address] [place], [place] [id number] Social History Tobacco Use Types Packs/Day Years Used Date Smoking Tobacco: Never Assessed Comments Unknown Sex and Gender Information Value Date Recorded Sex Assigned at Not on file Legal Sex Female 7:05 PM EDT Gender Identity Not on file Sexual Orientation Not on file documented as of this encounter Miscellaneous Notes * Telephone Encounter - Fatimah Andres NP - 08/26/2024 4:52 PM EDT Requested Prescriptions Signed Prescriptions Disp Refills LORazepam (Ativan) 0.5 MG tablet 42 tablet 0 Sig: Take 1 tablet (0.5 mg) by mouth every 8 (eight) hours if needed for anxiety for up to 14 days Authorizing Provider: FATIMAH ANDRES documented in this encounter Plan of Treatment Not on file documented as of this encounter Visit Diagnoses Diagnosis Anxiety disorder, unspecified type- Primary documented in this encounter Care Teams Media Professional Relationship Specialty Start Date End Date Katie Velasquez NP [address] [facility] [place] [address] PCP - General Family Medicine 01/16/24 documented as of this encounter
--- OUTSIDE RECORDS SUMMARY | 2024-08-28 20:51 | XMS_ITS | Clinical Summary ---
Author Organization [employer] [facility] tem Address [id number] [address] [place] [address] Care Team Providers Care [employer] Sales Representative Name Role Phone Unavailable Primary Care Provider Unavailabl e Allergies No known active allergies Medications ELIQUIS [...] mL nebulizerIndica tions:Acute respiratory failure with hypoxia ([facility]) Inhale 3 mL by nebulization every 4 (four) hours as needed for wheezing. 30 mL 2 Active midodrine (PROAMATINE) 10 mg tablet Take 1 tablet (10 mg total) by mouth as needed (give pre/mid during dialysis as needed for SBP <100). Active Active Problems Problem Noted Date Diagnosed Date Acute hypoxic respiratory failure 06/14/2024 Acute respiratory failure 06/14/2024 Mucus plug in respiratory tract 06/13/2024 Encounters Date Type Department Care Team Description 07/09/2024 Continuing Care [facility] [address] [place] [phone] Quintin Forman MD 07/02/2024 1:00 PM EDT - 07/02/2024 1:45 PM EDT Surgery [facility] Endoscopy [address] [place] [phone] Quintin Forman MD BRONCHOSCOPY ALVEOLAR LAVAGE [29796 (CPT )] 07/02/2024 12:52 PM EDT Anesthesia Event [facility] Endoscopy [address] [place] [phone] Lowell Trejo MD 07/02/2024 Travel 06/19/2024 Travel 06/14/2024 Orders Only [facility] [address] [place] [phone] Transcribe, Orders Support User Pain (Primary Dx) 06/13/2024 6:37 PM EST - 07/03/2024 5:40 PM EDT Hospital Encounter [facility] - GEN 7 ICU [address] [place] [phone] Cristy Hampton MD Noori, Zaid A, MD Mucus plug in respiratory tract (Primary Dx); Acute respiratory failure with hypoxia ([facility]) Discharge Disposition: [facility] Facility-Medicare Cert 06/13/2024 2:35 PM EST Ancillary Procedure [facility] [address] [place] [phone] Pain 06/13/2024 1:25 PM EST Ancillary Procedure [facility] [address] [place] [phone] Pain 06/13/2024 1:05 PM EST Ancillary Procedure [facility] [place] [phone] Pain 06/12/2024 6:10 PM EST Ancillary Procedure [facility] [place] [phone] Pain from Last 3 Months Social History Tobacco [...] Mass Index 24.88 06/24/2024 8:40 AM EDT Plan of Treatment Upcoming Encounters Date Type Department Care Team (Late st Contact Info) Description 09/12/2024 2:30 PM EDT Appointment [facility] Imaging [address] [place] [address] Health Maintenance Due Date Last Done Comments Depression Screening 1975 Tobacco Screening 1975 DTaP,Tdap and Td Vaccines (1 - Tdap) 1982 Pap Smear 01/31/1984 Zoster (Shingles) Vaccine (1 of 2) 2013 Influenza Vaccine 12/09/2024 Adult BMI Screening 07/03/2025 07/03/2024 Goals Goal Patient Goal Type Associated Problems Recent Progress Patient-Stated? Author <enter goal here> General Yes Mattie Mccarthy, RAMONITA Note: Evaluation of progress towards goal: Progress towards discharge Medical Devices Not on file Procedures Procedure Name Priority Date/Time Associated Diagnosis [...] PM EDT BLOOD GAS, ARTERIAL STAT 07/02/2024 4:32 PM EDT XR CHEST 1 VW STAT [...] PM EDT Mucus plug in respiratory tract NM BRNCHSC W/BRNCL ALVEOLAR LAVAGE 07/02/2024 12:52 PM [...] 07/01/2024 8:00 PM EDT BRONCHOPULMONARY HYGIENE Routine 8:00 PM EDT VENTILATION Routine 07/01/2024 4:00 [...] 06/30/2024 2:54 AM EDT BRONCHOPULMONARY HYGIENE Routine 025 12:00 AM EDT BRONCHOPULMONARY HYGIENE Routine 11:34 PM EDT BRONCHOPULMONARY HYGIENE Routine 11:34 PM EDT BRONCHOPULMONARY HYGIENE Routine 11:34 PM EDT BRONCHOPULMONARY HYGIENE Routine 11:34 PM EDT BEDSIDE GLUCOSE Routine 06/29/2024 [...] LINE SETUP Routine 025 12:00 PM EDT RESP ARTERIAL LINE SETUP [...] 06/22/2024 8:00 PM EDT BRONCHOPULMONARY HYGIENE Routine 8:00 PM EDT RESP ARTERIAL LINE SETUP Routine 8:00 PM EDT HEMOGLOBIN AND HEMATOCRIT, BLOOD [...] PM EDT RESP ARTERIAL LINE SETUP Routine 4:00 PM EDT BRONCHOPULMONARY HYGIENE Routine 025 2:00 PM EDT VENTILATION Routine 06/21/2024 12:00 PM EDT RESP ARTERIAL LINE SETUP Routine 12:00 PM EDT CROSSMATCH RBC Routine 06/21/2024 [...] 06/21/2024 3:00 AM EDT BRONCHOPULMONARY HYGIENE Routine 2:00 AM EDT VENTILATION Routine 06/21/2024 12:00 AM EDT RESP ARTERIAL LINE SETUP Routine 12:00 AM EDT HEMOGLOBIN AND HEMATOCRIT, BLOOD Routine 06/20/2024 11:20 PM EDT VENTILATION Routine 06/20/2024 8:00 PM EDT BRONCHOPULMONARY HYGIENE Routine 8:00 PM EDT RESP ARTERIAL LINE SETUP Routine 8:00 PM EDT HEMOGLOBIN AND HEMATOCRIT, BLOOD [...] 06/19/2024 2:20 AM EDT BRONCHOPULMONARY HYGIENE Routine 025 2:00 AM EDT RESP ARTERIAL LINE SETUP Routine 025 12:00 AM EDT VENTILATION Routine 06/19/2024 12:00 AM EDT BRONCHOPULMONARY HYGIENE Routine 025 9:56 PM EDT BRONCHOPULMONARY HYGIENE Routine 025 9:56 PM EDT RESP ARTERIAL LINE SETUP [...] SETUP Routine 12:00 AM EDT VENTILATION Routine 06/18/2024 12:00 AM EDT PROTIME & INR Routine 06/17/2024 8:02 PM EDT APTT Routine 06/17/2024 8:02 PM EDT RESP ARTERIAL LINE SETUP Routine 8:00 PM EDT VENTILATION Routine 06/17/2024 8:00 [...] SETUP Routine 12:00 AM EST VENTILATION Routine 06/16/2024 12:00 AM EST POTASSIUM Routine 06/16/2024 12:00 AM EST RESP ARTERIAL LINE SETUP Routine 8:00 PM EST VENTILATION Routine 06/15/2024 8:00 [...] EST RESP ARTERIAL LINE SETUP Routine 025 12:00 AM EST VENTILATION Routine 06/15/2024 12:00 [...] PM EST RESP ARTERIAL LINE SETUP Routine 6:31 PM EST RESP ARTERIAL LINE SETUP Routine 6:31 PM EST RESP ARTERIAL LINE SETUP Routine 6:31 PM EST ECHO COMPLETE WO CONTRAST [...] PM EST Pain from Last 3 Months Results * DNR Physician Order Report (Scanned Into EHR) (07/09/2024 8:12 AM EDT) Narrative 07/09/2024 8:12 AM EDT Ordered by an unspecified provider. us Not In System Ref Prov OUTPATIENT REFERRAL ORDER SALMA Final Result * Hemodialysis inpatient (07/03/2024 4:32 PM EDT) Richa Yun RN - 07/03/2024 4:32 PM EDT Richa [...] as tolerated. Report given to primary RN us Katarina Trotter MD DIALYSIS ORDERABLES Final [...] well with no immediate complication Catheter used [place] [facility] 23 cm tunneled / cuffed catheter. [...] well with no immediate complication Catheter used [place] [facility] 23 cm tunneled / cuffed catheter. IMPRESSION: Successful ultrasound and fluoroscopically guided placement of a tunneledhemodialysis catheter via the right internal jugular vein with thecatheter tip terminating at the cavoatrial junction. The catheter is available for immediate use. Finalized by Linda Gibson MD on 07/03/2024 9:26 AM us Katarina Trotter MD IMG IR ORDERABLES Final [...] - 11.0 X10E9/L 07/03/2024 3:18 AM EDT [facility] RBC count 2.45(L) 3.80 - 5.20 X10E12/L 07/03/2024 3:18 AM EDT [facility] Hemoglobin 7.8(L) 11.7 - 15.5 g/dL 07/03/2024 3:18 AM EDT [facility] Hematocrit 23.7(L) 35 - 47 % 07/03/2024 3:18 AM EDT [facility] MCV 97 80 - 100 fL 07/03/2024 3:18 AM EDT [facility] MCH 31.8 27 - 34 pg 07/03/2024 3:18 AM EDT [facility] MCHC 32.8 32 - 36 g/dL 07/03/2024 3:18 AM EDT [facility] RDW 18.3(H) 11.5 - 15.0 % 07/03/2024 3:18 AM EDT [facility] Platelets 330 150 - 450 X10E9/L 07/03/2024 3:18 AM EDT [facility] MPV 7.2 7 - 12 fL 07/03/2024 3:18 AM EDT [facility] % neutrophils 90.0 % 07/03/2024 3:18 AM EDT [facility] % lymphocytes 7.7 % 07/03/2024 3:18 AM EDT [facility] % monocytes 1.2 % 07/03/2024 3:18 AM EDT [facility] % eosinophils 0.5 % 07/03/2024 3:18 AM EDT [facility] % Basophils 0.6 % 07/03/2024 3:18 AM EDT [facility] Neutrophils Absolute (A) 7.3(H) 1.5 - 6.6 X10E9/L 07/03/2024 3:18 AM EDT [facility] Lymphocytes Absolute 0.6(L) 1.0 - 3.5 X10E9/L 07/03/2024 3:18 AM EDT [facility] Monocytes Absolute 0.1 0 - 0.9 X10E9/L 07/03/2024 3:18 AM EDT [facility] Eosinophils Absolute 0.0 0.0 - 0.4 X10E9/L 07/03/2024 3:18 AM EDT [facility] Basophils Absolute 0.0 0.0 - 0.2 X10E9/L 07/03/2024 3:18 AM EDT [facility] Blood / Unknown 07/03/2024 2 :48 AM EDT 07/03/2024 3:00 AM EDT us Nathaly Cristina MD LAB BLOOD ORDERABLES Final Resu lt SUNDAINA [facility] [address] [facility], [facility] [address] [place] [address] * Phosphorus (07/03/2024 2:48 AM EDT) Only the most recent of27 resultswithin the time period is included. Phosphorus 3.6 2.4 - 4.9 mg/dL 07/03/2024 3:31 AM EDT [facility] PLASMA 07/03/2024 2:48 AM EDT 07/03/2024 3:00 AM EDT us Nathaly Cristina MD LAB BLOOD ORDERABLES Final Resu lt Performing Organization Address City/[facility]/ZIP Co de Phone Number [facility] [address] [facility], [address] [place] [address] * Magnesium (07/03/2024 2:48 AM EDT) Only the most recent of31 resultswithin the time period is included. Magnesium 2.1 1.8 - 2.6 mg/dL 07/03/2024 3:31 AM EDT [facility] PLASMA 07/03/2024 2:48 AM EDT 07/03/2024 3:00 AM EDT us Nathaly Cristina MD LAB BLOOD ORDERABLES Final Resu lt Performing Organization Address [facility]/ZIP Co de Phone Number [facility] [address] [facility], [address] [place] [address] * (ABNORMAL) Comprehensive metabolic panel (07/03/2024 2:48 AM EDT) Only the most recent of21 resultswithin the time period is included. [facility] Sodium 136 134 - 146 mmol/L 07/03/2024 3:31 AM EDT [facility] Potassium, Bld 4.5 3.5 - 5.0 mmol/L 07/03/2024 3:31 AM EDT [facility] Chloride 100 98 - 109 mmol/L 07/03/2024 3:31 AM EDT [facility] CO2 24 22 - 32 mmol/L 07/03/2024 3:31 AM EDT [facility] Anion gap 12 5 - 15 mmol/L 07/03/2024 3:31 AM EDT [facility] BUN 32(H) 5 - 27 mg/dL 07/03/2024 3:31 AM EDT [facility] Creatinine 2.02(H) 0.40 - 1.00 mg/dL 07/03/2024 3:31 AM EDT [facility] Comment:METHOD TRACEABLE TO IDMS STANDARD Glucose 131(H) 65 - 99 mg/dL 07/03/2024 3:31 AM EDT [facility] Calcium 9.8 8.5 - 10.5 mg/dL 07/03/2024 3:31 AM EDT [facility] Total Protein 7.4 6.0 - 8.0 g/dL 07/03/2024 3:31 AM EDT [facility] Albumin 4.2 3.2 - 5.3 g/dL 07/03/2024 3:31 AM EDT [facility] Alkaline Phosphatase 60 39 - 130 U/L 07/03/2024 3:31 AM EDT [facility] AST 9 0 - 41 U/L 07/03/2024 3:31 AM EDT [facility] ALT 6 0 - 31 U/L 07/03/2024 3:31 AM EDT [facility] Total bilirubin 1.2 0.3 - 1.2 mg/dL 07/03/2024 3:31 AM EDT [facility] eGFR (CKD-EPI)non-rac e dependent 28(L) >59 ml/min/1.7 3sq.m 07/03/2024 3:31 AM EDT [facility] Comment: Reported eGFR is based on the CKD-EPI 2020 equation that does not use a race coefficient. PLASMA 07/03/2024 2:48 AM EDT 07/03/2024 3:00 AM EDT us Nathaly Cristina MD LAB BLOOD ORDERABLES Final Resu lt [facility] [address] [facility], [address] [place] [address] * ECG 12 lead (07/02/2024 10:43 PM EDT) Only the most recent of2 resultswithin the time period is included. 07/02/2024 10:4 3 PM EDT Narrative [facility] - 07/04/2024 4:21 PM EDT us Nathaly Cristina MD ECG ORDERABLES Final Result [facility] * Hemodialysis inpatient (07/02/2024 5:49 PM EDT) Abhijit José RN - 07/02/2024 5:49 PM EDT Abhijit [...] Sample Type ARTERIAL 07/02/2024 4:48 PM EDT [facility] Body Temp 37.0 37.0 C 07/02/2024 4:48 PM EDT [facility] pH 7.252(L) 7.350 - 7.450 07/02/2024 4:48 PM EDT [facility] PCO2 52.7(H) 35 - 45 MMHG 07/02/2024 4:48 PM EDT [facility] PO2 66(L) 80 - 100 MMHG 07/02/2024 4:48 PM EDT [facility] Base,Deficit 4.0(H) 0.0 - 2.0 MMOL/L 07/02/2024 4:48 PM EDT [facility] Portable HCO3 23.2 22 - 26 MMOL/L 07/02/2024 4:48 PM EDT [facility] % O2 Sat 89.0(L) >90 % 07/02/2024 4:48 PM EDT [facility] Jagdeep's Test NA 07/02/2024 4:48 PM EDT [facility] SPO2 91 % 07/02/2024 4:48 PM EDT [facility] Sample Site RRad 07/02/2024 4:48 PM EDT [facility] Insp. O2 Conc. 28 % 07/02/2024 4:48 PM EDT [facility] Oxygen Source NPPV 07/02/2024 4:48 PM EDT [facility] Artrial Blood Specimen 07/02/2024 4:32 PM EDT 07/02/2024 4:48 PM EDT us Cristy Hampton MD LAB BLOOD ORDERABLES Final R esult Performing Organization Address City/State/RUST Co de Phone Number [facility] [address] [place] [address] * Cytology (07/02/2024 1:04 PM EDT) Bronchoalveolar Lavage Structure of lower lobe of left lung / Unknown 07/02/2024 1:04 PM EDT Comment:Pre-op diagnosis: Mucus plug in respiratory tract [T17.998A] Narrative COPATH - 07/03/2024 4:31 PM EDT [facility] [address] [place] [address] Cytology Consultation Patient Name:JUANITA REDMAN:1965 (Age: 59)Gender:FTaken:07/02/2024Reported:07/03/2024 16:31Physician(s):Quintin Forman M.D. ([phone])Copy To: Rec. #:[id number]: #[id number] Final Cytologic Diagnosis Lung, left lower lobe, bronchoalveolar lavage: No malignant cells identified. ao/07/03/2024 Interpretation performed at [facility], [address] [place] [address], License number: [id number].Electronically Signed Out By Earl Boone MD Clinical History Mucus plug in respiratory tract [T17.998A]. Acute hypoxic respiratory failure (CMS-HCC) [J96.01]. Gross Description Received was 5ml of clear colorless fluid unfixed labeled as [place], lung, left lower lobe, BAL . CytoLyt added in lab. Unable to obtain cellblock, ThinPrep made. Source of Specimen Lung, left lower lobe, bronchoalveolar lavage Non CAR STORER ThinPrep Fee Code(s): 1; 05417 us Quintin Forman MD PATHOLOGY/CYTOLOGY ORDERABLES Fi nal Result COPATH * (ABNORMAL) Lower resp/sputum culture inc gram stain: Patient acquired (07/02/2024 1:04 PM EDT) Only the most recent of2 resultswithin the time period is included. Gram Stain Result 1 to 9 WHITE BLOOD CELLS/LPF 07/02/2024 10:56 PM EDT [facility] Gram Stain Result 10 to 24 SQUAMOUS EPITHELIAL CELLS/LPF 07/02/2024 10:56 PM EDT [facility] Gram Stain Result 0 CILIATED EPITHELIAL CELLS/LPF 07/02/2024 10:56 PM EDT [facility] Gram Stain Result MANY GRAM POSITIVE COCCI 07/02/2024 10:56 PM EDT [facility] Gram Stain Result FEW GRAM NEGATIVE RODS 07/02/2024 10:56 PM EDT [facility] Gram Stain Result FEW GRAM NEGATIVE DIPLOCOCCI(A) 07/02/2024 10:56 PM EDT [facility] Gram Stain Result RARE YEAST 07/02/2024 10:56 PM EDT [facility] Culture MANY STAPHYLOCOCCUS AUREUS METHICILLIN RESISTANT(A) 07/04/2024 10:01 AM EDT [facility] Culture ALONG WITH MANY NORMAL ORAL JEET 07/04/2024 10:01 AM EDT [facility] Bronchoalveolar Lavage Structure of [...] VARSHA METHOD <=0.5: Susceptible Comment:CLIA ID [id number] us Quintin Forman MD MICROBIOLOGY - GENERAL ORDERABLE S Final Result Performing Organization Address City/[facility]/ZIP Co de Phone Number [facility] [address] [place] [address], [facility] [address] [place] [address] * (ABNORMAL) Fungal culture includes fungal smear (07/02/2024 1:04 PM EDT) Fungal smear NO FUNGAL ELEMENTS SEEN ON DIRECT SMEAR 07/03/2024 9:25 AM EDT [facility] Culture MABLE ALBICANS(A) 07/07/2024 2:50 PM EDT [facility] Bronchoalveolar Lavage Structure of lower lobe of left lung / Unknown 07/02/2024 1:04 PM EDT Comment:Pre-op diagnosis: Mucus plug in respiratory tract [T17.998A] us Quintin Forman MD MICROBIOLOGY - GENERAL ORDERABLE S Final Result Performing Organization Address City/[facility]/ZIP Co de Phone Number [facility] [address] [place] [address], [facility] [address] [place] [address] * Body Fluid cell count with differential (07/02/2024 1:04 PM EDT) Specimen type BRONCHOALVEOLAR LAVAGE 07/02/2024 5:17 PM EDT [facility] Comment: LEFT LUNG, LOWER LOBE Fluid neutrophils 18 % 025 7:26 PM EDT [facility] Fluid lymphocyte 3 % 07/03/19 25 7:26 PM EDT [facility] Macrophages 79 % 07/02/2024 7:26 PM EDT [facility] Nucleated cell ct 76 /uL 025 7:26 PM EDT [facility] Fluid RBC 220 /uL 07/02/2024 7:26 PM EDT [facility] Fluid color YELLOW 07/02/2024 7:26 PM EDT [facility] Fluid clarity HAZY 07/02/2024 7:26 PM EDT [facility] Body fluid comment Interpre tation-------- 07/03/2024 5:44 AM EDT [facility] Comment: Reference values for [...] respiratory tract [T17.998A] us Quintin Forman MD BODY FLUIDS AND STOOLS ORDERABLE S Edited Result - Final WILSON [facility] [address] [facility], [address] [place] [address] * Bronchoscopy Report (07/02/2024 11:54 AM EDT) [...] - 0.74 mmol/L 07/02/2024 10:49 AM EDT [facility] Comment:NEW REFERENCE RANGE PLASMA 07/02/2024 10:2 4 AM EDT 07/02/2024 10:39 AM EDT us Nathaly Cristina MD LAB BLOOD ORDERABLES Final Resu lt Performing Organization Address City/[facility]/RUST Co de Phone Number [facility] [address] [place] [address], [address] [place] [address] * (ABNORMAL) Protime & INR (07/02/2024 10:24 AM EDT) Only the most recent of11 resultswithin the time period is included. Protime 13.5(H) 9.8 - 13.2 sec 07/02/2024 10:51 AM EDT [facility] Inr 1.2 0.9 - 1.2 07/02/2024 10:51 AM EDT [facility] PLASMA 07/02/2024 10:2 4 AM EDT 07/02/2024 10:40 AM EDT us Kvng Hayes MD LAB BLOOD ORDERABLES Final Result Performing Organization Address City/[facility]/RUST Co de Phone Number [facility] [address] [place] [address], [address] [address] * Potassium (07/02/2024 10:24 AM EDT) Only the most recent of9 resultswithin the time period is included. Potassium, Bld 4.2 3.5 - 5.0 mmol/L 07/02/2024 11:12 AM EDT [facility] PLASMA 07/02/2024 10:2 4 AM EDT 07/02/2024 10:39 AM EDT us Nathaly Cristina MD LAB BLOOD ORDERABLES Final Resu lt Performing Organization Address [facility]/[place]UST Co de Phone Number [facility] [address] [place] [address], [address] [place] [address] * (ABNORMAL) Ionized calcium (07/01/2024 2:50 PM EDT) Only the most recent of3 resultswithin the time period is included. Calcium, ionized 5.6(H) 4.5 - 5.3 mg/dL 07/01/2024 3:10 PM EDT [facility] PLASMA 07/01/2024 2:50 PM EDT 07/01/2024 3:02 PM EDT us Danny Grey MD LAB BLOOD ORDERABLES Fin al Result Performing Organization Address [facility]/RUST Co de Phone Number [facility] [address] [place] [address], [address] [place] [address] * Fluoroscopy swallow motility function (07/01/2024 11:05 [...] Sample Type VENOUS 06/29/2024 9:01 PM EDT [facility] Body Temp 37.0 37.0 C 06/29/2024 9:01 PM EDT [facility] pH, Venous 7.230(L) 7.320 - 7.420 06/29/2024 9:01 PM EDT [facility] PCO2, Venous 58.6(H) 35 - 50 MMHG 06/29/2024 9:01 PM EDT [facility] PO2, Venous 35 30 - 50 MMHG 06/29/2024 9:01 PM EDT [facility] Base,Deficit 3.0(H) 0.0 - 2.0 MMOL/L 06/29/2024 9:01 PM T [facility] Portable HCO3 24.5(H) 20.0 - 24.0 MMOL/L 06/29/2024 9:01 PM T [facility] % O2 Sat 54.0(L) >80.0 % 06/29/2024 9:01 PM EDT [facility] Jagdeep's Test NA 06/29/2024 9:[facility] SPO[facility] 99 % 06/29/2024 9:01 PM T [facility] Sample Site N/A 06/29/2024 9:01 PM EDT [facility] Insp. O2 Conc. 4 % 06/29/2024 9:01 PM EDT [facility] Oxygen Source NC 06/29/2024 9:01 PM EDT [facility] Blood / Unknown 06/29/2024 8 :56 PM EDT 06/29/2024 9:01 PM EDT us Cristy Hampton MD LAB BLOOD ORDERABLES Final R esult [facility] [address] [place] [address] * Hepatitis B core antibody, IgM (06/27/2024 9:47 AM EDT) Hep B Core IgM Ab Non-Reacti ve Non-Reacti ve^Non-[place] ctive 06/27/2024 11:44 AM EDT [facility] Comment:NEW TEST METHOD Serum / Unknown 06/27/2024 9 :47 AM EDT 06/27/2024 10:02 AM EDT Katarina Trotter MD LAB BLOOD ORDERABLES Final Result [facility] [address] [place] [address] * Hemodialysis inpatient (06/25/2024 4:00 PM EDT) Narrative Edith Dhillon RN - 06/25/2024 4:00 PM EDT Edith Dhillon RN 06/25/2024 4:01 PM Juanita Yoo Юлия completed 1 hr and 58 minutes Hemodialysis [...] information per Flowsheets & MAR. - Edith Dhillon RN, Dialysis 06/25/24 Katarina Trotter MD DIALYSIS ORDERABLES Edited Result - Final * (ABNORMAL) Hemoglobin and hematocrit, blood (06/23/2024 8:42 AM EDT) Only the most recent of11 resultswithin the time period is included. Pathologist [facility] Hemoglobin 7.6(L) 11.7 - 15.5 g/dL 06/23/2024 9:10 AM EDT [facility] Hematocrit 23.3(L) 35 - 47 % 06/23/2024 9:10 AM EDT [facility] Blood / Unknown 06/23/2024 8 :42 AM EDT 06/23/2024 8:58 AM EDT us Filomena Newman MD LAB BLOOD ORDERABLES Final R esult [facility] [address] [facility], [address] [place] [address] * Transfuse RBC:1 Unit (06/22/2024 4:51 AM EDT) Only the most recent of2 resultswithin the time period is included. us Nathaly Cristina MD BLOOD TRANSFUSION ORDERABLES Fi nal Result * Hemodialysis inpatient (06/21/2024 6:07 PM EDT) Narrative Richa Chairez, RAMONITA - 06/21/2024 6:07 PM EDT Richa Chairez [...] Bed scale show removal of 3.1 kg us Katarina Trotter MD DIALYSIS ORDERABLES Final R esult * Crossmatch RBC:Number of Units: 1 (06/21/2024 10:00 AM EDT) Only the most recent of2 resultswithin the time period is included. Pathologist [facility] Blood component type [id number] BLOOD BANK [facility] Unit number [id number] BL OOD ASIYA - LISA Unit ABO A BLOOD ASIYA - LISA Unit RH POS BLOOD ASIYA - LISA Crossmatch Compatible BLOOD BA NK - LISA Status of unit TRANSFUSED AYLEEN GONZALEZ Expiration Date [id number] BLOOD BANK - LISA BB Type Barcode [id number] BLOOD ASIYA - LISA Blood 06/21/2024 10:0 0 AM EDT us Nathaly Cristina MD BLOOD BANK PRODUCT ORDERABLES E dited Result - Final BLOOD BANK - LISA * Type and screen(includes indirect chito) (06/21/2024 10:00 AM EDT) Only the most recent of2 resultswithin the time period is included. ABO A 06/21/2024 12:21 PM EDT [facility] RH Positive 06/21/2024 12:21 PM EDT [facility] Antibody Screen Negative 06/21/2024 12:21 PM EDT [facility] 06/21/2024 10:0 0 AM EDT us Filomena Newman MD BLOOD BANK TEST ORDERABLES E dited Result - Final [facility] [address] [place] [place] [address], [place] * Ultrafiltration inpatient (06/20/2024 5:19 PM EDT) Narrative Kathy Austin RN - 06/20/2024 5:19 PM EDT Kathy Austin RN 06/20/2024 5:21 PM Pt dialyzed for 3.5 hours with a net fluid removal of 2.4kg Pre hd wt was 80.8kg Post HD wt was 78.4kg Catheter functioned well. Pt was given albumin prior to dialysis and then one dose of midodrine during dialysis us Patrick Mustafa MD DIALYSIS ORDERABLES Final Result * Lactate w/ Reflex (06/20/2024 8:58 AM EDT) Only the most recent of2 resultswithin the time period is included. Lactate w/ Reflex 1.4 0.4 - 2.0 mmol/L 06/20/2024 9:57 AM EDT [facility] Comment: Result did not trigger repeat Lactate, re-order if needed. PLASMA 06/20/2024 8:58 AM EDT 06/20/2024 9:14 AM EDT us Filomena Newman MD LAB BLOOD ORDERABLES Final R esult [facility] [address] [facility], [address] [place] [address] * Ultrafiltration inpatient (06/19/2024 2:06 PM EDT) [...] - Emely Abarca RN 06/19/24 2:06 PM us Katarina Trotter MD DIALYSIS ORDERABLES Final R esult * Hemodialysis inpatient (06/18/2024 2:50 PM EDT) Narrative Cristela Howell RN - 06/18/2024 2:50 PM EDT Cristela [...] off. Post BP: 153/71 Post HR: 82 us Katarina Trotter MD DIALYSIS ORDERABLES Final R esult * APTT (06/18/2024 8:20 AM EDT) Only the most recent of8 resultswithin the time period is included. aPTT 31 26 - 37 sec 06/18/2024 8:54 AM EDT [facility] PLASMA 06/18/2024 8:20 AM EDT 06/18/2024 8:38 AM EDT us Patrick Mustafa MD LAB BLOOD ORDERABLES Final Result [facility] [address] [facility], [address] [place] [address] * (ABNORMAL) Liver panel (06/18/2024 3:10 AM EDT) Only the most recent of6 resultswithin the time period is included. Alkaline phosphatase 78 39 - 130 U/L 06/18/2024 3:54 AM EDT [facility] AST 15 0 - 41 U/L 06/18/2024 3:54 AM EDT [facility] ALT 3 0 - 31 U/L 06/18/2024 3:54 AM EDT [facility] Total Bilirubin 1.2 0.3 - 1.2 mg/dL 06/18/2024 3:54 AM EDT [facility] Bilirubin, direct 0.7(H) 0.0 - 0.4 mg/dL 06/18/2024 3:54 AM EDT [facility] Albumin 2.8(L) 3.2 - 5.3 g/dL 06/18/2024 3:54 AM EDT [facility] Total Protein 5.5(L) 6.0 - 8.0 g/dL 06/18/2024 3:54 AM EDT [facility] PLASMA 06/18/2024 3:10 AM EDT 06/18/2024 3:23 AM EDT us Patrick Mustafa MD LAB BLOOD ORDERABLES Final Result [facility] [address] [place] [address] * X-ray abdomen NG Tube placement 1 [...] - 146 mmol/L 06/17/2024 6:00 PM EDT [facility] Potassium, Bld 4.1 3.5 - 5.0 mmol/L 06/17/2024 6:00 PM EDT [facility] Chloride 106 98 - 109 mmol/L 06/17/2024 6:00 PM EDT [facility] CO2 25 22 - 32 mmol/L 06/17/2024 6:00 PM EDT [facility] Anion gap 10 5 - 15 mmol/L 06/17/2024 6:00 PM EDT [facility] PLASMA 06/17/2024 4:54 PM EDT 06/17/2024 5:21 PM EDT Katarina Trotter MD LAB BLOOD ORDERABLES Final Result Performing Organization Address [facility] de Phone Number [facility] [address] [place] [address] * Vancomycin, random (06/17/2024 2:00 AM EDT) Only the most recent of4 resultswithin the time period is included. Vancomycin 15.8 5.0 - 40.0 ug/mL 06/17/2024 2:42 AM EDT [facility] Comment: Peak 30-40 ug/mL Trough 5-20 ug/ml PLASMA 06/17/2024 2:00 AM EDT 06/17/2024 2:15 AM EDT Nathaly Cristina MD LAB BLOOD ORDERABLES Final Resu lt Performing Organization Address [facility]/[place] Co de Phone Number [address] [address] * Blood culture #2 (06/15/2024 1:12 PM EST) Only the most recent of4 resultswithin the time period is included. Culture NO GROWTH 5 DAYS 06/20/2024 2:41 PM EDT [facility] Blood Blood / Unknown 06/15/2024 1 :12 [...] proximal 29 cm XCELERA Left Ventricle Mass 200.29518 [id number] 1 g XCELERA Interventricular Septum Diastolic Thickness [...] detection for pulmonary nodules was performed utilizing [employer] software. FINDINGS: Endotracheal tube present. There is [...] Vinicio Ruiz MD on 06/14/2024 2:42 PM Procedure [...] detection for pulmonary nodules was performed utilizing Leap[employer]. FINDINGS: Endotracheal tube present. There is a [...] Vinicio Ruiz MD on 06/14/2024 2:42 PM [facility] Mervin Grey MD IMG CT ORDERABLES [...] within limitations of noncontrast and intubated technique. Senior Pharmacy Technician, parapharyngeal and retropharyngeal spaces are unremarkable. Within limitations of technique, the salivary glands and thyroid gland appear unremarkable. No discrete lymphadenopathy by noncontrast technique. Right IJ central venous catheter, peripherally inserted central venous catheter transjugular intrahepatic portosystemic shunt are outside the [id number]. There is soft tissue stranding in the [...] unremarkable within limitations of noncontrast andintubated technique. Senior Pharmacy Technician, parapharyngeal and retropharyngeal spaces are unremarkable. Within limitations of technique, the salivary glands and thyroid glandappear unremarkable. No discrete lymphadenopathy by noncontrast technique. Right IJ central venous catheter, peripherally inserted central venouscatheter transjugular intrahepatic portosystemic shunt are outside [id number]. There is soft tissue stranding in the [...] on 06/14/2024 3:48 PM Danny Grey MD [facility] CT ORDERABLES Final Result * CT abdomen [...] Orestes Lozano MD on 06/14/2024 3:17 PM us Danny Mervin Grey MD IMG CT ORDERABLES [...] 06/14/2024 1:16 PM us Katarina Trotter MD IMG US ORDERABLES Final Res ult * (ABNORMAL) Urine protein creatinine ratio (06/14/2024 12:26 PM EST) Urine creatinine 39.08 mg/dL 06/14/2024 1:41 PM EST [facility] Protein Urine Random 860(H) <120 mg/L 06/14/2024 1:41 PM EST [facility] U/Pro/Greenhouse Superintendent Ratio Calc 2.20(H) <0.2 06/14/2024 1:41 PM [facility] Comment:Nephrotic Syndrome i s associated with ratios >3.5 Urine / Unknown 06/14/2024 1 2:26 PM EST 06/14/2024 12:44 PM EST us Katarina Trotter MD URINE ORDERABLES Final Resu lt Performing Organization Address City/[facility]/ZIP Co de Phone Number [facility] [address] [facility], [address] [place] [address] * Protein electrophoresis, urine (06/14/2024 12:26 PM EST) Uprel interp SEE SEPARATE REPORT 06/18/2024 8:04 AM EDT [id number] Urine / Unknown 06/14/2024 1 2:26 PM EST 06/14/2024 12:45 PM EST us Katarina Trotter MD URINE ORDERABLES Final Resu lt [id number] * (ABNORMAL) Urinalysis (06/14/2024 12:26 PM EST) Color YELLOW YELLOW^Y ELLOW 06/14/2024 1:23 PM [facility] Turbidity HAZY(A) CLEAR^CL EAR 06/14/2024 1:23 PM [facility] Specific gravity 1.011 1.003 - 1.035 06/14/2024 1:23 PM [facility] Nitrite Negative Negative ^Negativ e 06/14/2024 1:23 PM [facility] Ph urine 5.5 5.0 - 8.5 06/14/2024 1:23 PM [facility] Leukocyte esterase Large(A) Negative ^Negativ e 06/14/2024 1:23 PM [facility] Protein 50(A) Negative ^Negativ e mg/dL 06/14/2024 1:23 PM [facility] Glucose, Ur Negative Negative ^Negativ e mg/dL 06/14/2024 1:23 PM [facility] Ketones urine Negative Negative ^Negativ e mg/dL 06/14/2024 1:23 PM [facility] Urobilinogen <1.1 <1.1 eu/dL 06/14/2024 1:23 PM [facility] Bilirubin, urine Negative Negative ^Negativ e 06/14/2024 1:23 PM [facility] Hemoglobin Large(A) Negative ^Negativ e 06/14/2024 1:23 PM [facility] Microspopic Urine URINE RECEIVED WITHOUT PRESERVATIVE-DE LAYS IN TRANSPORT MAY AFFECT RESULTS.INTERPR ET WITH CAUTION AND CLINICAL CORRELATION IS RECOMMENDED. 06/14/2024 1:31 PM [facility] Mucus, UA PRESENT(A) NONE^NON E 06/14/2024 1:23 PM [facility] RBC 140(H) 0 - 5 /hpf 06/14/2024 1:23 PM [facility] Squamous epithelium 2 0 - 5 /hpf 06/14/2024 1:23 PM [facility] Trans Epithel, UA <1(H) 0 /hpf 06/14/2024 1:23 PM [facility] Hyaline Casts, UA 10(H) 0 - 2 /lpf 06/14/2024 1:23 PM [facility] WBC 69(H) 0 - 5 /hpf 06/14/2024 1:23 PM [facility] Urine / Unknown 06/14/2024 1 2:26 PM EST 06/14/2024 12:44 PM EST us Katarina Trotter MD URINE ORDERABLES Edited Res ult - Final [facility] [address] [facility], [address] [place] [address] * Urine culture (06/14/2024 12:26 PM EST) Specimen Notes URINE RECEIVED WITHOUT PRESERVATIVE 06/14/2024 1:17 PM [facility] Culture NO GROWTH AT <1000 CFU/mL 06/15/2024 12:38 PM [facility] Urine Urine / Unknown 06/14/2024 1 2:26 PM EST 06/14/2024 1:16 PM EST us Katarina Trotter MD MICROBIOLOGY - GENERAL [place] GOODMAN Final Result [facility] [address] [facility], [address] [place] [address] * (ABNORMAL) Basic Metabolic Panel (06/14/2024 10:33 AM EST) Sodium 131(L) 134 - 146 mmol/L 06/14/2024 11:24 AM [facility] Potassium, Bld 4.8 3.5 - 5.0 mmol/L 06/14/2024 11:24 AM [facility] Chloride 100 98 - 109 mmol/L 06/14/2024 11:24 AM [facility] CO2 21(L) 22 - 32 mmol/L 06/14/2024 11:24 AM [facility] Anion gap 10 5 - 15 mmol/L 06/14/2024 11:24 AM [facility] BUN 42(H) 5 - 27 mg/dL 06/14/2024 11:24 AM [facility] Creatinine 3.64(H) 0.40 - 1.00 mg/dL 06/14/2024 11:24 AM [facility] Comment:METHOD TRACEABLE TO IDMS STANDARD Glucose 97 65 - 99 mg/dL 06/14/2024 11:24 AM [facility] Calcium 8.0(L) 8.5 - 10.5 mg/dL 06/14/2024 11:24 AM [facility] eGFR (CKD-EPI)non-ra ce dependent 14(L) >59 ml/min/1.7 3sq.m 06/14/2024 11:24 AM EST [facility] Comment: Reported eGFR is based on the CKD-EPI 2020 equation that does not use a race coefficient. PLASMA 06/14/2024 10:3 3 AM EST 06/14/2024 10:50 AM EST us Danny Grey MD LAB BLOOD ORDERABLES Fin al Result Performing Organization Address City/State/[place] Co de Phone Number [facility] [address] [place] [address] * ABO Rh Repeat (06/14/2024 9:30 AM EST) ABO A 06/14/2024 5:35 PM EST [facility] RH Positive 06/14/2024 5:35 PM [facility] 06/14/2024 9:30 AM EST us Kvng Hayes MD BLOOD BANK TEST ORDERABLES Final Result Performing Organization Address [facility] de Phone Number [facility] [address] [place] [address], * Clinical Pathology Blood Smear Review Clinical (06/14/2024 8:46 AM EST) Staff review NOTE 06/19/2024 11:58 AM EDT [facility] Comment: [facility] [address] [place] [address] Clinical Pathology Report Patient Name:JUANITA REDMAN:1965 (Age: 59)Gender:FTaken:06/14/2024Reported:06/19/2024Physician(s):Vernell Ospina To: Rec. #:[id number]: #[id number] Final Pathologic Diagnosis Peripheral smear review: - [...] Out duvall/06/19/2024Jamar Hammond MD Interpretation performed at [facility], [address] [place] [address], License number: [id number]. Clinical History ___ BLOOD SMEAR EVALUATION CBC (06/14/2024244): WBC: 4.8 x 109/L RBC: 2.31 x [...] Received Blood Smear Review Fee Codes(s): 1; 88278 Blood / Unknown 06/14/2024 8 :46 AM EST 06/14/2024 8:52 AM EST us Danny Mervin Grey MD LAB BLOOD ORDERABLES Fin al Result [facility] * Cytoplasmic Neutrophilic Ab (ANCA), S (06/14/2024 8:00 AM EST) c-ANCA Negative Negative 06/15/2024 12:45 PM EST [facility] p-ANCA Negative Negative 06/15/2024 12:45 PM EST [facility] Comment: NOTE Negative for cANCA and pANCA patterns by immunofluorescence. ADDITIONAL INFORMATION This test was developed and its performance characteristics determined by [facility] in a manner consistent with CLIA requirements. This test has not been cleared or approved by the U.S. Food and Drug Administration. Test Performed by: [facility] [address] [place] [address] Clothing Patternmaker: Alan Boothe Ph.D.; CLIA# [id number] Blood Serum / Unknown 06/14/2024 8 :00 AM EST 06/14/2024 8:17 AM EST Katarina Trotter MD LAB BLOOD ORDERABLES Final Result [id number] * (ABNORMAL) Serum Immunofixation (06/14/2024 8:00 AM EST) IgA 568(H) 68 - 378 mg/dL 06/14/2024 8:53 AM EST [facility] IgG 1,039 635 - 1,741 mg/dL 06/14/2024 8:53 AM EST [facility] IgM 162 45 - 281 mg/dL 06/14/2024 8:53 AM EST [facility] Immune profile inter SEE SEPARATE REPORT 06/18/2024 8:06 AM EDT [id number] Serum / Unknown 06/14/2024 8 :00 AM EST 06/14/2024 8:17 AM EST Katarina Trotter MD LAB BLOOD ORDERABLES Final Result [id number] [address] [facility] [address] [place] [address] * Glomerular basement membrane IgG AB (06/14/2024 8:00 AM EST) Glomerular basement membrane IgG AB <0.2 <1.0 AI 06/14/2024 11:07 AM EST [facility] Serum / Unknown 06/14/2024 8 :00 AM EST 06/14/2024 8:17 AM EST Katarina Trotter MD LAB BLOOD ORDERABLES Final Result [facility] [address] [place] [address], [address] [place] [address] * (ABNORMAL) TSH with Reflex (06/14/2024 8:00 AM EST) Only the most recent of2 resultswithin the time period is included. Pathologist [facility] TSH 14.30(H) 0.49 - 4.67 uIU/mL 06/14/2024 9:36 AM EST [facility] PLASMA 06/14/2024 8:00 AM EST 06/14/2024 8:17 AM EST Katarina Trotter MD LAB BLOOD ORDERABLES Edited Result - Final [facility] [address] [place] [address], [address] [place] [address] * LDH (06/14/2024 8:00 AM EST) [facility] LDH 127 100 - 235 U/L 06/14/2024 11:21 AM EST [facility] PLASMA 06/14/2024 8:00 AM EST 06/14/2024 8:17 AM EST Katarina Trotter MD LAB BLOOD ORDERABLES Final Result [facility] [address] [place] [address], [address] [place] [address] * (ABNORMAL) Free light chains (06/14/2024 8:00 AM EST) [facility] Free [place] Lt Chains 22.41(H) 0.33 - 1.94 mg/dL 06/14/2024 11:01 AM EST [facility] Free Lambda Lt Chains 13.82(H) 0.57 - 2.63 mg/dL 06/14/2024 11:01 AM EST [facility] Free jose ramon/lambda ratio 1.62 0.26 - 1.65 06/14/2024 11:01 AM EST [facility] Serum / Unknown 06/14/2024 8 :00 AM EST 06/14/2024 8:17 AM EST Katarina Trotter MD LAB BLOOD ORDERABLES Final Result [facility] * (ABNORMAL) Complement profile (C3 AND C4) (06/14/2024 8:00 AM EST) C3 Complement 69(L) 86 - 184 mg/dL 06/14/2024 8:53 AM [facility] C4 Complement 13(L) 16 - 47 mg/dL 06/14/2024 8:53 AM [facility] Serum / Unknown 06/14/2024 8 :00 AM EST 06/14/2024 8:17 AM EST Katarina Trotter MD LAB BLOOD ORDERABLES Final Result Performing Organization Address City/[facility]/[place] Co de Phone Number [facility] [address] [facility], [address] [place] [address] * Iron and TIBC (06/14/2024 8:00 AM EST) Iron 118 50 - 170 ug/dL 06/14/2024 8:54 AM [facility] Tibc-calc only do not order 272 250 - 425 ug/dL 06/14/2024 8:54 AM [facility] Iron Saturation 43 15 - 50 % SATURATION 06/14/2024 8:54 AM [facility] PLASMA 06/14/2024 8:00 AM EST 06/14/2024 8:17 AM EST Katarina Trotter MD LAB BLOOD ORDERABLES Final Result Performing Organization Address City/[facility]/ZIP Co de Phone Number [facility] [address] [facility], [address] [place] [address] * MATY Screen w/ Reflex (06/14/2024 8:00 AM EST) [facility] Maty screen Negative Negative^N egative 06/14/2024 11:05 AM EST [facility] Comment: Testing performed using multiplex flow immunoassay. Eleven different antigens associated with systemic autoimmune diseases (dsDNA,Sm,Sm/CARPENTER AND JOINER,CARPENTER AND JOINER,Chromatin, SSA,SSB,Keesha-1,Scl70,Ribo P,Centromere B) are included in this screening test. Serum / Unknown 06/14/2024 8 :00 AM EST 06/14/2024 8:17 AM EST Katarina Trotter MD LAB BLOOD ORDERABLES Final Result Performing Organization Address [facility]/[place] Co de Phone Number [facility] [address] [facility], [address] [place] [address] * (ABNORMAL) T4, free (06/14/2024 8:00 AM EST) Only the most recent of2 resultswithin the time period is included. [facility] T4, free 0.58(L) 0.61 - 1.60 ng/dL 06/14/2024 10:17 AM EST [facility] Comment:CLIA ID [id number] 06/14/2024 8:00 AM EST us Katarina Trotter MD LAB BLOOD ORDERABLES Final Result Performing Organization Address [facility]/ZIP Co de Phone Number [facility] [address] [place] [address], [address] [place] [address] * (ABNORMAL) Protein electrophoresis, serum (06/14/2024 8:00 AM EST) [facility] Total Protein 6.0 6.0 - 8.0 g/dL 06/14/2024 8:53 AM [facility] Albumin 3.2(L) 3.4 - 5.3 g/dL [...] SEE SEPARATE REPORT 06/18/2024 8:06 AM EDT [facility] Serum / Unknown 06/14/2024 8 :00 AM EST 06/14/2024 8:17 AM EST Katarina Trotter MD LAB BLOOD ORDERABLES Final Result Performing Organization Address City/[facility]/ZIP Co de Phone Number [facility] [address] [facility], [facility] [address] [place] [address] * Haptoglobin (06/14/2024 8:00 AM EST) Haptoglobin 84 32 - 228 mg/dL 06/14/2024 9:25 AM [facility] Serum / Unknown 06/14/2024 8 :00 AM EST 06/14/2024 8:17 AM EST Katarina Trotter MD LAB BLOOD ORDERABLES Final Result [facility] [address] [place] [address], [address] [place] [address] * Folate (06/14/2024 8:00 AM EST) Folate 11.1 >5.8 ng/mL 06/14/2024 9:39 AM EST [facility] Comment:NEW REFERENCE RANGE PLASMA 06/14/2024 8:00 AM EST 06/14/2024 8:17 AM EST us Katarina Trotter MD LAB BLOOD ORDERABLES Final Result Performing Organization Address City/[facility]/ZIP Co de Phone Number [facility] [address] [facility], [address] [place] [address] * Ferritin (06/14/2024 8:00 AM EST) Pathologist [facility] Ferritin 42 11 - 307 ng/mL 06/14/2024 9:08 AM EST [facility] PLASMA 06/14/2024 8:00 AM EST 06/14/2024 8:17 AM EST Katarina Trotter MD LAB BLOOD ORDERABLES Final Result Performing Organization Address [facility]/[place] Co de Phone Number [facility] [address] [facility] [address] [place] [address] * (ABNORMAL) Vitamin B12 (06/14/2024 8:00 AM EST) Pathologist [facility] Vitamin B-12 1,093(H) 180 - 914 pg/mL 06/14/2024 9:40 AM [facility] Serum / Unknown 06/14/2024 8 :00 AM EST 06/14/2024 8:17 AM EST Katarina Trotter MD LAB BLOOD ORDERABLES Final Result Performing Organization Address City/[facility]/ZIP Co de Phone Number [facility] [address] [facility], [address] [place] [address] * (ABNORMAL) Hepatitis B core antibody, total (06/14/2024 2:45 AM EST) Pathologist [facility] Hep B Core Total Ab Reactive(A ) Non-Reacti ve^Non-[place] ctive 06/14/2024 9:35 AM EST [facility] Comment:NEW TEST METHOD Blood / Unknown 06/14/2024 2 :45 AM EST 06/14/2024 2:55 AM EST us Nathaly Cristina MD LAB BLOOD ORDERABLES Final Resu lt Performing Organization Address [facility]/[place] Co de Phone Number [facility] [address] [address] * Hepatitis B Surface Antibody Quantitation (06/14/2024 2:45 AM EST) [facility] Anti HBs quantitative <3.00 mIU/mL 06/14/2024 9:14 AM EST [facility] Comment: NOTE Vaccinated: >=10.00 mIU/mL, Positive (Immune) Unvaccinated: <10.00 mIU/mL, Negative (Not Immune) Interpretive values have changed due to implementation of a new method. Values run higher than previous method. Serum / Unknown 06/14/2024 2 :45 AM EST 06/14/2024 2:55 AM EST us Nathaly Cristina MD LAB BLOOD ORDERABLES Final Resu lt Performing Organization Address [facility]/[place] Co de Phone Number [facility] [address] [place] [address] * Hepatitis B surface antigen (06/14/2024 2:45 AM EST) [facility] Hepatitis B Surface Ag Non-Reacti ve Non-Reacti ve^Non-Leah ctive 06/14/2024 9:11 AM EST [facility] Comment:NEW TEST METHOD Serum / Unknown 06/14/2024 2 :45 AM EST 06/14/2024 2:55 AM EST us Nathaly Cristina MD LAB BLOOD ORDERABLES Final Resu lt Performing Organization Address [facility] Co de Phone Number [facility] [address] [place] [address], [phone] [address] [address] * Reticulocytes (06/14/2024 2:45 AM EST) [facility] Reticulocyte 2.2 0.4 - 2.2 % 06/14/2024 9:25 AM EST [facility] Blood / Unknown 06/14/2024 2 :45 AM EST 06/14/2024 2:55 AM EST us Nathaly Cristina MD LAB BLOOD ORDERABLES Final Resu lt [facility] [address] [place] [address], [address] [place] [address] * Clinical Pathology Review (06/14/2024 12:00 AM EST) Only the most recent of2 resultswithin the time period is included. URPR 06/14/2024 06/17/2024 3:2 0 PM EDT Narrative COPATH - 06/17/2024 8:39 PM EDT [facility] [address] [place] [address] Clinical Pathology Report Patient Name:JUANITA REDMAN:1965 (Age: 59)Gender:FTaken:06/14/2024Reported:06/17/2024Physician(s):Katarina Trotter M.D. ([phone])Copy To: Rec. 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 No monoclonal protein identified. Report Electronically Signed Out df/06/17/2024Eben Pappas MD Interpretation performed [place] [address], License number: [id number]. Clinical History I48.91, J96.01, J96.00. URINE PROTEIN ELECTROPHORESIS SAMPLE NUMBER: [id number] RELATIVE ELECTROPHORETIC CONCENTRATIONS (%) ? 100.0 Urine Protein 820 mg/L (Electrophoretic gels and densitometric tracings on file in lab.) Specimen(s) Received Urine Protein Electrophoresis Fee Codes(s): 1; 86443-72 us Katarina Trotter MD PATHOLOGY/CYTOLOGY ORDERABL ES Final Result Performing Organization Address City/[facility]/ZIP Co de Phone Number COPATH * (ABNORMAL) Troponin I, High Sensitivity 1 Hour (06/13/2024 8:54 PM EST) 1 Hour Trop I, High Sensitivity 58(H) <16 ng/L 06/13/2024 9:36 PM EST [facility] Comment: Elevations of hs-Troponin may be due to causes other than myocardial ischemia. Recommend serial hs-Troponin testing be performed. For the initial evaluation and management of chest pain patients, refer to the algorithms linked below. Emergency Patient: [email or web address] Inpatient: [email or web address] Blood Serum / Unknown 06/13/2024 8 :54 PM EST 06/13/2024 9:02 PM EST us Nathaly Cristina MD LAB BLOOD ORDERABLES Final Resu lt Performing Organization Address [facility]/ZIP Co de Phone Number [facility] [address] [facility] [facility], [address] [place] [address] * (ABNORMAL) Mrsa Pcr nasal swab (06/13/2024 8:25 PM EST) Mrsa PCR Positive(A) Negative^N egative 06/13/2024 10:29 PM EST [facility] Nasal cavity structure / Unknown 06/13/2024 8:25 PM EST 06/13/2024 8:40 PM EST us Nathaly Cristina MD MICROBIOLOGY - GENERAL ORDERABL ES Final Result [facility] [address] [facility], [address] [place] [address] * Resp Pathogens Panel/SARS CoV-2 (06/13/2024 8:25 PM EST) Specimen Source NASO PHARYNX 06/13/2024 8:05 PM EST [facility] Adenovirus Detection by PCR Not Detected Not Detected^No t Detected 06/13/2024 10:29 PM [facility] Coronavirus 229e Not Detected Not Detected^No t Detected 06/13/2024 10:29 PM [facility] Coronavirus hku1 Not Detected Not Detected^No t Detected 06/13/2024 10:29 PM [facility] Coronavirus nl63 Not Detected Not Detected^No t Detected 06/13/2024 10:29 PM [facility] Coronavirus oc43 Not Detected Not Detected^No t Detected 06/13/2024 10:29 PM [facility] Human metapneumovirus Not Detected Not Detected^No t Detected 06/13/2024 10:29 PM [facility] Rhinovirus/enterov irus Not Detected Not Detected^No t Detected 06/13/2024 10:29 PM [facility] Influenza A Not Detected Not Detected^No t Detected 06/13/2024 10:29 PM [facility] Influenza B Not Detected Not Detected^No t Detected 06/13/2024 10:29 PM [facility] Parainfluenza 1 Not Detected Not Detected^No t Detected 06/13/2024 10:29 PM [facility] Parainfluenza 2 Not Detected Not Detected^No t Detected 06/13/2024 10:29 PM [facility] Parainfluenza 3 Not Detected Not Detected^No t Detected 06/13/2024 10:29 PM [facility] Parainfluenza 4 Not Detected Not Detected^No t Detected 06/13/2024 10:29 PM [facility] Respiratory syncytial virus Not Detected Not Detected^No t Detected 06/13/2024 10:29 PM [facility] Bordetella parapertussis Not Detected Not Detected^No t Detected 06/13/2024 10:29 PM [facility] Bordetella pertussis Not Detected Not Detected^No t Detected 06/13/2024 10:29 PM [facility] Chlamydophila pneumophilia Not Detected Not Detected^No t Detected 06/13/2024 10:29 PM [facility] Mycoplasma pneumoniae Not Detected Not Detected^No t Detected 06/13/2024 10:29 PM [facility] SARS COV 2 Not Detected Not Detected^No t Detected 06/13/2024 10:29 PM [facility] Comment: NOTE The [employer]Fire Respiratory Panel 2.1 (RP2.1) is a multiplexed [...] ORDERABL ES Final Result Performing Organization Address [facility]/[place] Co de Phone Number [facility] [address] [place] [phone] * (ABNORMAL) Procalcitonin (06/13/2024 7:54 PM EST) Procalcitonin 0.22(H) <0.05 ng/mL 06/13/2024 8:50 PM EST [facility] Comment: NOTE <0.50 ng/mL - Low risk of severe sepsis and/or septic shock. <2.00 ng/mL - Recommend retesting within 6-24 hours. >2.00 ng/mL - High risk of sepsis and/or septic shock. PLASMA 06/13/2024 7:54 PM EST 06/13/2024 8:06 PM EST us Nathaly Cristina MD LAB BLOOD ORDERABLES Final Resu lt Performing Organization Address City/[facility]/ZIP Co de Phone Number [facility] [address] [place] [address] * (ABNORMAL) Troponin I, High Sensitivity (06/13/2024 7:54 PM EST) Troponin I, High Sensitivity 61(H) <16 ng/L 06/13/2024 8:48 PM EST [facility] Comment: Elevations of hs-Troponin may be due to causes other than myocardial ischemia. Recommend serial hs-Troponin testing be performed. For the initial evaluation and management of chest pain patients, refer to the algorithms linked below. Emergency Patient: [email or web address] Inpatient: [email or web address] Blood Serum / Unknown 06/13/2024 7 :54 PM EST 06/13/2024 8:06 PM EST us Nathaly Cristina MD LAB BLOOD ORDERABLES Final Resu lt Performing Organization Address [facility]/[place] Co de Phone Number [facility] [address] [place] [address], [address] [place] [address] * (ABNORMAL) B-type natriuretic peptide (06/13/2024 7:54 PM EST) BNP 1,765(H) <100.0 pg/mL 06/13/2024 9:14 PM EST [facility] PLASMA 06/13/2024 7:54 PM EST 06/13/2024 8:06 PM EST us Nathaly Cristina MD LAB BLOOD ORDERABLES Final Resu lt Performing Organization Address [facility]/[place] Co de Phone Number [address] [address] * Ultrasound abdomen complete (06/13/2024 1:25 PM EST) us Scanning Provider External IMG US ORDERABLES Fin al Result * Vas venous duplex lwr bilateral (06/13/2024 1:05 PM EST) us Scanning Provider External CV VASCULAR ORDERABLE S Final Result Performing Organization Address City/[facility]/[place] Co de Phone Number [employer] from Last 3 Months Insurance [employer] Advance Directives * DNRCCA DNI (Latest Code Status on File) Date Activated Date Inactivated Comments 06/25/2024 2:15 PM 07/03/2024 7:47 PM * DNR Comfort Care Arrest (DNR-CCA) [place] Date Activated Date Inactivated Comments 06/25/2024 2:07 PM 06/25/2024 2:15 PM * Full Code Date Activated Date Inactivated Comments 06/13/2024 8:54 PM 06/25/2024 2:07 PM
--- OUTSIDE RECORDS SUMMARY | 2024-08-28 20:52 | XMS_ITS | CCD ---
Author Organization [facility] Care Team Providers Care Pan Helper Name Role Phone PHYSICIAN, DEFAULT Unavailable Unavailable PHYSICIAN, DEFAULT Unavailable Unavailable CASON, LASHA Unavailable Unavailable PHYSICIAN, DEFAULT Unavailable Unavailable PHYSICIAN, DEFAULT Unavailable Unavailable CASON, LASHA Unavailable Unavailable DO Segundo Rawls Primary Care Provider DO Hong Jewell Admit Provider [phone] DO Hong Jewell Attending Provider [phone] MD Rehan Russ Other Provider MD Nilesh Oakley Other Provider RAMONITA Persaud Other Provider Unavailable DO Gillian Romano Other Provider MD Kylah Kingsley Other Provider MD Sher Frazier Other Provider MD Washington Cardoso Other Provider MD Segundo Main Other Provider JANETTE Wright Other Provider MD Estefania Martinez Other Provider MD Abbey Bach Other Provider MD Naila Kolb Other Provider MD Luis Leonardo Other Provider MD Lowell Trejo Other Provider MD Benedicto Santamaria Other Provider MD Lul Austin Jr Other Provider MD Jagruti Ugalde Other Provider MD Brad Gan Other Provider DR UNIQUE AUSTIN Consulting Unavailable ANNA, DR NEWELL Admitting Unavailable JENNY, DR PRETTY Primary Care Unavailable ANNA, DR NEWELL Attending Unavailable STEVEN, DR IZZY Sheridan Consulting Unavailabl e HAY, DR NEWELL Consulting Unavailable YAROSROASLINDA Marshall Consulting Unavailable CODY ALEXANDER Consulting Unavailable JUNO HERNÁNDEZ Admitting Unavailable JENNY, DR PRETTY Primary Care Unavailable ZIEBPAU, DR DENISE Sher Consulting Unavailable JUNO HERNÁNDEZ Attending Unavailable JUNO HERNÁNDEZ Consulting Unavailable MD Luis LEONARDO Attending Unavailable HONG JEWELL Referring Unavailabl e DO Segundo Rawls Primary Care Provider [phone] DO Caden Jarrell Emergency Provider Vaibhav, William Unavailable LocorbacheKatie sher APRN Primary Care Provider Locorbacher Katie SAVAGE Attending Provider Unavailable Primary Care Provider UnavailSheryl Hickman Admitting Unavailable Katie Velasquez Primary Care Unavailable Sheryl Santamaria Attending Unavailable Katie Velasquez Attending Unavailable Locorbacher, [facility] Primary Care Unavailable LocorbacherKatie Admitting Unavailable Rohrbacher Katie SAVAGE Primary Care Provider Sheryl Santamaria DO Attending Provider PROVIDER, UNKNOWN Attending Unavailable PROVIDER, UNKNOWN Admitting Unavailable Unavailable Primary Care Provider Unavailjamie e Rohrbacher DALLAS, Katie A Primary Care Provider LUCIANA BLISS Admitting Unavailable ANA FALK Referring Unav ailable SHARIF YU Consulting Unavailable QUINTIN FORMAN Attending Unavailable KAYLA ESTRADA Consulting Unavailable RELIEF, [facility] Cons ulting Unavailable Rohrbacher MANAGER ETHICS, Katie Christiano Primary Care Provider Allergies Allergy Classification Reported Allergen(s) Allergy Type Date of Onset Reaction(s) Facility (2 sources) cephalexin; Translations: [KEFLEX] Drug Allergy 4 AOF [facility] Repository (10 sources) predniSONE; Translations: [PREDNISONE] Drug Allergy 5 Swelling [facility] Repository (8 sources) Cephalexin; Translations: [cephalexin] Drug Allergy 2 Nausea, Unknown [facility] Medications Current Medications Medication Drug Class(es) Dates Sig (Normalized) Sig (Original) albuterol 0.833 mg/ml / ipratropium bromide 0.167 mg/ml inhalation solution (1 source) Anticholinergic , beta2-Adrenergi c Agonist Start: 07-03-2024 take 3 mL by inhalation every four hours as needed for wheezing ipratropium-albutero L (DUONEB) 0.5 mg-3 mg(2.5 mg base)/3 mL nebulizer Indications: Acute respiratory failure with hypoxia (CMS-HCC) Inhale 3 mL by nebulization every 4 (four) hours as needed for wheezing. 30 mL 2 07/03/2024 Active apixaban 2.5 mg oral tablet (1 source) Factor Xa Inhibitor Start: 04-28-2024 take 1 tablet by mouth in the morning, then take 1 tablet by mouth at bedtime ELIQUIS 2.5 mg tablet Take 1 tablet (2.5 mg total) by mouth in the morning and 1 tablet (2.5 mg total) before bedtime. 04/28/2024 Active ascorbic acid 500 mg oral tablet (7 sources) Vitamin C Start: 12-10-2021 take 1 [...] Active calcium carbonate 1250 mg oral tablet (6 sources) Start: 12-10-2021 Calcium Carbonate (Oyster Shell Calcium 500) 500 mg calcium (1,250 mg) Tablet Active 1000 MG PO Twice daily 120 December 10, 2021 12:00am calcium carbonate 298 mg / magnesium chloride 596 mg delayed release oral tablet (1 source) take 1 tablet by mouth every twenty-four hours Slow-Mag 71.5-119 MG 1 TABLET Orally Once a day Active carvedilol 12.5 mg oral tablet (1 source) alpha-Adrenergi c Humberto, beta-Adrenergic Humberto Start: 07-03-2024 take 1 tablet by mouth in the morning, then take 1 tablet by mouth at bedtime carvediloL (COREG) 12.5 mg tablet Indications: hypertension Take 1 tablet (12.5 mg total) by mouth in the morning and 1 tablet (12.5 mg total) before bedtime. Indications: high blood pressure. 90 tablet 2 07/03/2024 Active cholecalciferol 0.01 mg oral tablet (6 sources) Vitamin D Start: 12-10-2021 take 1 tablet by mouth twice daily at mealtime Cholecalciferol (Vitamin D3) (Vitamin D3) 10 mcg (400 unit) Tablet Active 20 MCG PO Twice daily with meals 120 December 10, 2021 12:00am 0.3 ml darbepoetin anai 0.2 mg/ml prefilled syringe (1 source) Erythropoiesis- stimulating Agent Start: 07-05-2024 inject 0.3 mL by subcutaneous injection every week darbepoetin anai-polysorbate (ARANESP) 60 mcg/0.3 mL syringe Indications: anemia due to renal failure Inject 0.3 mL (60 mcg total) under the skin once a week Indications: anemia due to kidney failure. 0.3 mL 5 07/05/2024 Active docusate sodium 50 mg / sennosides, fpc 8.6 mg oral tablet (1 source) Start: 07-03-2024 sennosides-docusate sodium (SENOKOT-S) 8.6-50 mg Take 2 tablets by mouth as needed for constipation. 30 tablet 07/03/2024 Active ferrous sulfate 324 mg delayed release oral tablet (7 sources) Start: 12-10-2021 Ferrous Sulfate 324 mg (65 mg iron) Tablet,Delayed Release (Dr/Ec) Active 324 MG PO Q48H 15 December 10, 2021 12:00am take 1 tablet by ryan th every twenty-four hours Ferrous Sulfate 324 MG 1 tablet Orally Once a day Not-Taking folic acid 1 mg oral tablet (7 sources) Start: 12-10-2021 take 1 tablet by mouth once daily Folic Acid 1 mg Tablet Active 1 MG PO Daily 30 December 10, 2021 12:00am LORazepam 0.5 mg oral tablet (5 sources) Benzodiazepine Start: 08-26-2024 End: 09-09-2024 take 1 tablet by mouth every eight hours for anxiety LORazepam (Ativan) 0.5 MG tablet Indications: Anxiety disorder, unspecified type Take 1 tablet (0.5 mg) by mouth every 8 (eight) hours if needed for anxiety for up to 14 days 42 tablet 08/26/2024 09/09/2024 Active Start: 08-16-2024 End: 09-15-2024 take 1 tablet by mouth once daily LORazepam (Ativan) 1 MG tablet Indications: Anxiety about treatment Take 1 tablet (1 mg) by mouth Daily Give daily before HD on dialysis days 30 tablet 08/16/2024 09/15/2024 Active Start: 07-26-2024 End: 08-16-2024 take 2 tablets by mouth once daily LORazepam (Ativan) 0.5 MG tablet Indications: Anxiety about treatment Take 2 tablets (1 mg) by mouth Daily for 14 days Give daily before HD on Mon, , Mon, , Monday. 28 tablet 07/26/2024 08/16/2024 Discontinued magnesium oxide 400 mg oral tablet (8 sources) Start: 09-28-2023 End: 09-28-2023 take 1 tablet by mouth twice daily Magnesium Oxide 400 mg magnesium tablet Active 400 MG PO Twice daily 180 90 September 28, 2023 3:07pm metoprolol tartrate 100 mg oral tablet (15 sources) beta-Adrenergic Humberto Start: 09-28-2023 End: 09-28-2023 Metoprolol Tartrate 100 mg tablet Active 150 MG PO Daily 135 90 September 28, 2023 3:07pm Start: 09-28-2023 End: 09-28-2023 take 150 mg by mouth once daily Metoprolol Tartrate Ac tive 150 MG PO Daily 135 90 September 28, 2023 3:07pm Start: 12-04-2021 End: 09-28-2023 take 1 tablet by mouth once daily Metoprolol Succinate 100 mg tablet extended release 24 hr Discontinued 100 MG PO Daily December 04, 2021 12:00am September 28, 2023 2:56pm midodrine hydrochloride 10 mg oral tablet (1 source) alpha-Adrenergic Agonist Start: 07-03-2024 midodrine (PROAMATINE) 10 mg tablet Take 1 tablet (10 mg total) by mouth as needed (give pre/mid during dialysis as needed for SBP 07/03/2024 Active pantoprazole 40 mg delayed release oral tablet (1 source) Proton Pump Inhibitor Start: 05-24-2024 take 1 tablet by mouth once daily before breakfast pantoprazole (PROTONIX) 40 mg EC tablet Take 1 tablet (40 mg total) by mouth every morning before breakfast. 05/24/2024 Active thiamine 200 mg oral tablet (7 sources) Start: 12-10-2021 Thiamine Hcl (Vitamin B1) 100 mg Tablet Active 200 MG PO Daily 60 December 10, 2021 12:00am take 1 tablet [...] Not-Taking diphenhydrAMINE hydrochloride 25 mg oral capsule (6 sources) Histamine-1 Receptor Antagonist Start: 12-04-2021 End: 12-10-2021 take 1 capsule by mouth twice daily Diphenhydramine Hcl (Benadryl) 25 mg Capsule Discontinued 25 MG PO Twice daily December 04, 2021 12:00am December 10, 2021 1:24pm furosemide 40 mg oral tablet (7 sources) Loop Diuretic Start: 12-10-2021 End: 09-28-2023 take 1 tablet by mouth once daily Furosemide 40 mg Tablet Discontinued 40 MG PO Daily at 0800 30 December 10, 2021 12:00am September 28, 2023 2:56pm Further refills, or dose adjustment, per Nephrology with Dr. Esposito. levoFLOXacin 750 mg oral tablet (6 sources) Quinolone Antimicrobial Start: 12-10-2021 End: 09-27-2023 Levofloxacin 750 mg Tablet Discontinued 750 MG PO Q48H 4 8 December 10, 2021 12:00am September 27, 2023 4:47pm Next dose is due on Monday. levothyroxine sodium 0.1 mg oral capsule (20 sources) l-Thyroxine Start: 09-28-2023 End: 09-28-2023 take 1 capsule by mouth once daily Levothyroxine 100 mcg capsule Discontinued 100 MCG PO Daily September 28, 2023 3:06pm September 28, 2023 3:20pm Start: 12-04-2021 End: 09-28-2023 take 1 tablet by mouth once daily Levothyroxine 100 mcg tablet Active 100 MCG PO Daily September 28, 2023 12:00am take 1 tablet by ryan th once daily in the morning Levothyroxine Sodium 100 MCG 1 tablet in the morning on an empty stomach Orally Once a day Active lisinopril 20 mg oral tablet (6 sources) Angiotensin Converting Enzyme Inhibitor Start: 12-04-2021 End: 12-10-2021 take 1 tablet by mouth once daily Lisinopril 20 mg tablet Discontinued 20 MG PO Daily December 04, 2021 12:00am December 10, 2021 1:24pm magnesium chloride 598 mg delayed release oral tablet (6 sources) Start: 12-10-2021 End: [...] omeprazole 20 mg delayed release oral capsule (15 sources) Proton Pump Inhibitor Start: 12-04-2021 End: 09-28-2023 take 1 capsule by mouth once daily Omeprazole 20 mg capsule,delayed release(DR/EC) Discontinued 20 MG PO Daily September 28, 2023 12:00am September 28, 2023 3:09pm sodium bicarbonate 650 mg oral tablet (7 sources) Start: 12-10-2021 End: 09-28-2023 take 1 tablet by mouth three times daily Sodium Bicarbonate 650 mg Tablet Discontinued 650 MG PO Three times daily December 10, 2021 12:00am September 28, 2023 2:57pm Problems Problem Classification Problem Date Documented Date Episodic/Chronic Acute and unspecified renal failure (8 sources) Injury of kidney; Translations: [Acute kidney failure, unspecified] Onset: 12-07-2021 12-04-2021 Episodic Acute myocardial infarction (11 sources) Myocardial infarction; Translations: [Myocardial infarction type 2] 12-05-2021 Chronic Alcohol-related disorders (11 sources) Alcohol abuse; Translations: [Alcohol abuse, uncomplicated] Onset: 12-21-2021 12-04-2021 Chronic Anxiety disorders (2 sources) Anxiety disorder, unspecified; Translations: [Anxiety disorder] Onset: 12-21-2021 08-26-2024 Chronic Cardiac dysrhythmias (19 sources) Atrial fibrillation; Translations: [Unspecified atrial fibrillation] Onset: 06-13-2024 12-06-2021 Chronic Chronic kidney disease (1 source) [...] kidney disease Chronic Deficiency and other anemia (6 sources) Macrocytic anemia; Translations: [Nutritional anemia, unspecified] 12-06-2021 Episodic Deficiency and other anemia (6 sources) Anemia; Translations: [Anemia, unspecified] 12-04-2021 Episodic Deficiency and other anemia (1 source) Anemia, unspecified; Translations: [Anemia, unspecified] 12-10-2021 Episodic Deficiency and other anemia (1 source) Nutritional anemia, unspecified; Translations: [Unspecified deficiency anemia] 12-10-2021 Episodic Esophageal disorders (8 sources) Gastroesophageal reflux disease; Translations: [Gastro-esophageal reflux disease without esophagitis] 09-28-2023 Chronic Essential hypertension (17 sources) Hypertensive disorder; Translations: [Essential (primary) hypertension] Onset: 12-21-2021 12-04-2021 Chronic Fluid and electrolyte disorders (17 sources) Hyponatremia; Translations: [Hypo-osmolality and hyponatremia] Onset: 12-07-2021 12-04-2021 Episodic Hypertension with complications and secondary hypertension (4 sources) Hypertensive urgency ; Translations: [Hypertensive urgency] Chronic Malaise and fatigue (7 sources) Weakness; Translations: [Asthenia] Onset: 12-19-2021 Episodic Miscellaneous mental health disorders (2 sources) Anxiety about treatment; Translations: [Other symptoms and signs involving emotional state] 07-26-2024 Episodic Nonmalignant breast conditions (3 sources) Breast lump; Translations: [Unspecified lump in the left breast, unspecified quadrant] 01-23-2024 Episodic Nutritional deficiencies (9 sources) Moderate protein energy malnutrition; Translations: [Moderate protein-calorie malnutrition] 12-04-2021 Chronic Nutritional deficiencies (20 sources) Ascorbic acid deficiency; Translations: [Ascorbic acid deficiency] 12-10-2021 Episodic Other aftercare (1 source) Other joint terminal attack controller (current) drug therapy; Translations: [OTH RETAIL SALES MERCHANDISER CURRENT DRUG THERAPY] Onset: 12-21-2021 Episodic Other and ill-defined heart disease (6 sources) Takotsubo cardiomyopathy; Translations: [Takotsubo syndrome] 12-05-2021 Chronic Other and ill-defined heart disease (5 sources) Takotsubo syndrome; Translations: [Takotsubo syndrome] 12-10-2021 Chronic Other connective tissue disease (2 sources) Recurrent falls ; Translations: [Repeated falls] 12-28-2023 Episodic Other connective tissue disease (1 source) Repeated falls; Translations: [History of fall] 12-27-2023 Episodic Other diseases of bladder and urethra (7 sources) Urethral stenosis; Translations: [Urethral stenosis] 12-08-2021 Episodic Other diseases of kidney and ureters (6 sources) Hydronephrosis; Translations: [Unspecified hydronephrosis] 12-08-2021 Episodic Other diseases of kidney and ureters (1 source) Unspecified hydronephrosis; Translations: [Hydronephrosis] 12-10-2021 Episodic Other hematologic conditions (1 source) Other specified abnormalities of plasma proteins; Translations: [OTH SPEC ABNORM PLASMA PROTEINS] Onset: 12-07-2021 Episodic Other injuries and conditions due to external causes (2 sources) Other foreign object in respiratory tract, part unspecified causing other injury, initial encounter; Translations: [Foreign body in respiratory tree, unspecified] Onset: 06-13-2024 07-01-2024 Episodic Other lower respiratory disease (1 source) Respiratory distress Onset: 06-13-2024 Episodic Other nutritional; endocrine; and metabolic disorders (7 sources) Hypomagnesemia; Translations: [Hypomagnesemia] 12-04-2021 Chronic Other nutritional; endocrine; and metabolic disorders (6 sources) Hypocalcemia; Translations: [Hypocalcemia] 12-04-2021 Chronic Other nutritional; endocrine; and metabolic disorders (2 sources) Hypocalcemia; Translations: [Hypocalcemia] Onset: 12-07-2021 12-10-2021 Chronic Other nutritional; endocrine; and metabolic disorders (5 sources) Hypomagnesemia; Translations: [Disorders of magnesium metabolism] 12-10-2021 Chronic Other screening for suspected conditions (not mental disorders or infectious disease) (3 sources) Mammography abnormal; Translations: [Other abnormal and inconclusive findings on diagnostic imaging of breast] Onset: 06-13-2024 01-23-2024 Episodic Other skin disorders (3 sources) Breast changes; Translations: [Changes in skin texture] 12-27-2023 Episodic Other skin disorders (2 sources) Changes in skin texture; Translations: [Changes in skin texture] 12-27-2023 Episodic Residual codes; unclassified (3 sources) Noncompliance with treatment; Translations: [Noncompliance] 12-28-2023 Episodic Residual codes; unclassified (1 source) Pain, unspecified; Translations: [Pain, unspecified] Onset: 06-14-2024 Episodic Respiratory failure; insufficiency; arrest (adult) (4 sources) Acute respiratory failure; Translations: [Acute respiratory failure with hypoxia] Onset: 06-13-2024 06-14-2024 Episodic Rheumatoid arthritis and related disease (8 sources) Rheumatoid arthritis; Translations: [Rheumatoid arthritis, unspecified] 09-28-2023 Chronic Substance-related disorders (1 source) Nicotine dependence, cigarettes, uncomplicated; Translations: [NICOTINE DEPEND CIGARETTES UNCOMP] Onset: 12-21-2021 Chronic Syncope (7 sources) Vasovagal syncope; Translations: [Syncope and collapse] 12-06-2021 Episodic Systemic lupus erythematosus and connective tissue disorders (8 sources) Lupus erythematosus; Translations: [Systemic lupus erythematosus, unspecified] 09-28-2023 Chronic Thyroid disorders (12 sources) Hypothyroidism; Translations: [Hypothyroidism, unspecified] Onset: 12-21-2021 12-04-2021 Chronic Unclassified (1 source) CONTACT W/AND (SUSP) EXPOS COVID-19; Translations: [CONTACT W/AND (SUSP) EXPOS COVID-19] Onset: 12-21-2021 Unclassified (4 sources) Large breast; Translations: [Increased size of breast] 12-27-2023 Results Test Name Value Interpretation Reference Range Facility CBC AND AUTO DIFFon 07-04-19 ABSOLUTE BASOPHIL 0.0 X10E9/L Normal 0.0-0.2 [facility] Comment on above: Performed By: #### Bertha THEODORE CMP, , 2776-04 ####[facility] ([id number])[address], [address] [place] [address] ABSOLUTE NEUTROPHIL 7.3 X10E9/L High 1.5-6.6 [facility] Comment on above: Performed By: #### Bertha THEODORE [facility], , 2776-04 ####[facility] ([id number])[address] [place] [address] Basophils/100 WBC (Bld) 0.6 % Normal P [facility] Comment on above: Performed By: #### Bertha BCA CMP, , 2776-04 ####[facility] ([id number])[address], [address] [place] [address] Eosinophils (Bld) [#/Vol] 0.0 10*3/uL Normal 0.0-0.[address] [facility] Comment on above: Performed By: #### Bertha BCA, CMP, , 2776-04 ####[facility] ([id number])[address], [address] [address] Eosinophils/100 WBC (Bld) 0.5 % Normal [facility] Comment on above: Performed By: #### C EWELINA CMP, , 2776-04 ####[facility] ([id number])[address], [place] [address] Erythrocyte distribution width (RBC) [Ratio] 18.3 % High 11.5-15.[address] [facility] Comment on above: Performed By: #### C EWELINA, CMP, , 2776-04 ####[facility] ([id number])[address] [address], [place] [address] Hematocrit (Bld) [Volume fraction] 23.7 % Low 35-[address] [facility] Comment on above: Performed By: #### C EWELINA, CMP, , 2776-04 ####[facility] ([id number])[address], [place] [address] Hemoglobin (Bld) [Mass/Vol] 7.8 g/dL Low 11.7-15.[address] [facility] Comment on above: Performed By: #### C BCA, CMP, , 2776-04 ####[facility] ([id number])[address] [address] Lymphocytes (Bld) [#/Vol] 0.6 10*3/uL Low 1.0-3.[address] [facility] Comment on above: Performed By: #### C BCA, CMP, , 2776-04 ####[facility] ([id number])[address] [address] Lymphocytes/100 WBC (Bld) 7.7 % Normal [facility] Comment on above: Performed By: #### C BCA, CMP, , 2776-04 ####[facility] ([id number])[address] [place] [address] MCH (RBC) [Entitic mass] 31.8 pg Normal 27-[address] [facility] Comment on above: Performed By: #### C BCA, CMP, , 2776-04 ####[facility] ([id number])[address], [address] [place] [address] MCHC (RBC) [Mass/Vol] 32.8 g/dL Normal 32-36 [facility] Comment on above: Performed By: #### C BCA, CMP, , 2776-04 ####[facility] ([id number])[address] [address] MCV (RBC) [Entitic vol] 97 fL Normal 80-100 [facility] Comment on above: Performed By: #### C BCA, CMP, , 2776-04 ####[facility] ([id number])[address] [address] Monocytes (Bld) [#/Vol] 0.1 10*3/uL Normal 0-0.[address] [facility] Comment on above: Performed By: #### C BCA, CMP, , 2776-04 ####[facility] ([id number])[address] [address] Monocytes/100 WBC (Bld) 1.2 % Normal [facility] Comment on above: Performed By: #### C BCA, CMP, , 2776-04 ####[facility] ([id number])[address] [address] Neutrophils/100 WBC (Bld) 90.0 % Normal [facility] Comment on above: Performed By: #### C BCA, CMP, , 2776-04 ####[facility] ([id number])[address] [place] [address] Platelet mean volume (Bld) [Entitic vol] 7.2 fL Normal 7-[address] [facility] Comment on above: Performed By: #### C BCA, CMP, , 2776-04 ####[facility] ([id number])[address], [address], [place] [address] Platelets (Bld) [#/Vol] 330 10*3/uL Normal 150-[address] [facility] Comment on above: Performed By: #### C BCA, CMP, , 2776-04 ####[facility] ([id number])[address], [address] [place] [address] RBC COUNT 2.45 X10E12/L Low 3.80-5.[address] [facility] Comment on above: Performed By: #### C BCA, CMP, , 2776-04 ####[facility] ([id number])[address] [address] [place] [address] WBC (Bld) [#/Vol] 8.1 10*3/uL Normal 4.0-11.0 [facility] Comment on above: Performed By: #### C BCA, CMP, , 2776-04 ####[facility] ([id number])[address], [address] [place] [address] COMPREHENSIVE METABOLIC PANE Kael 07-03-2024 Albumin [Mass/Vol] 4.2 g/dL Normal 3.2-5.3 [facility] Comment on above: Performed By: #### C BCA, CMP, , 2776-04 ####[facility] ([id number])[address], [address] [place] [address] ALP [Catalytic activity/Vol] 60 U/L Normal 39-[address] [facility] Comment on above: Performed By: #### C BCA, CMP, , 2776-04 ####[facility] ([id number])[address], [address], [place] [address] ALT [Catalytic activity/Vol] 6 U/L Normal 0-[address] [facility] Comment on above: Performed By: #### C BCA, CMP, , 2776-04 ####[facility] [facility] ([id number])[address], [address], [place] [address] Anion gap [Moles/Vol] 12 mmol/L Normal 5-15 [facility] Comment on above: Performed By: #### C BCA, CMP, , 2776-04 ####[facility] ([id number])[address], [address], [place] [address] AST [Catalytic activity/Vol] 9 U/L Normal 0-[address] [facility] Comment on above: Performed By: #### C BCA, CMP, , 2776-04 ####[facility] ([id number])[address], [address], [place] [address] Bilirubin [Mass/Vol] 1.2 mg/dL Normal 0.3-1.2 [facility] Comment on above: Performed By: #### C BCA, CMP, , 2776-04 ####[facility] ([id number])[address], [address], [place] [address] Calcium [Mass/Vol] 9.8 mg/dL Normal 8.5-10.5 [facility] Comment on above: Performed By: #### C BCA, CMP, , 2776-04 ####[facility] ([id number])[address], [address], [place] [address] Chloride [Moles/Vol] 100 mmol/L Normal 98-109 [facility] Comment on above: Performed By: #### C BCA, CMP, , 2776-04 ####[facility] ([id number])[address] [address] [place] [address] CO2 [Moles/Vol] 24 mmol/L Normal 22-[address] [facility] Comment on above: Performed By: #### C RENA THEODORE, , 2776-04 ####[facility] ([id number])[address] [address] [place] [place] [address] Creatinine [Mass/Vol] 2.02 mg/dL High 0.40-1.00 [facility] Comment on above: Result Comment: METH OD TRACEABLE TO IDMS STANDARD Performed By: #### C RENA THEODORE, , 2776-04 ####[facility] ([id number])[address] [address] [address] GFR/1.73 sq M.predicted among non-blacks MDRD (S/P/Bld) [Vol rate/Area] 28 mL/min/{1.73_m2} Low >[address] [facility] Comment on above: Result Comment: Repo rted eGFR is based on theCKD-EPI 2020 equation that doesnot use a race coefficient. Performed By: #### C RENA THEODORE, , 2776-04 ####[facility] ([id number])[address] [address] [address] Glucose [Mass/Vol] 131 mg/dL High 65-99 [facility] Comment on above: Performed By: #### C RENA THEODORE, , 2776-04 ####[facility] ([id number])[address] [address] [place] [address] Potassium [Moles/Vol] 4.5 mmol/L Normal 3.5-5.0 [facility] Comment on above: Performed By: #### C RENA THEODORE, , 2776-04 ####[facility] ([id number])[address] [place] [address] Protein [Mass/Vol] 7.4 g/dL Normal 6.0-8.0 [facility] Comment on above: Performed By: #### C EWELINA CMP, , 2776-04 ####[facility] ([id number])[address] [place] [address] Sodium [Moles/Vol] 136 mmol/L Normal 134-146 [facility] Comment on above: Performed By: #### C EWELINA, CMP, , 2776-04 ####[facility] ([id number])[address] [place] [address] Urea nitrogen [Mass/Vol] 32 mg/dL High 5-[address] [facility] Comment on above: Performed By: #### C EWELINA CMP, , 2776-04 ####[facility] ([id number])[address], [address] [place] [address] IR PORT TUNLD DIAL/CENT LINE > 5 YRSon 07-03-2024 IR PORT TUNLD DIAL/CENT LINE > 5 YRS [address] [facility] MAGNESIUMon 07-03-2024 Magnesium [Mass/Vol] 2.1 mg/dL Normal 1.8-2.6 [facility] Comment on above: Performed By: #### C EWELINA, CMP, , 2776-04 ####[facility] ([id number])[address] [place] [address] PHOSPHORUSon 07-03-2024 Phosphate [Mass/Vol] 3.6 mg/dL Normal 2.4-4.9 [facility] Comment on above: Performed By: #### C EWELINA, CMP, , 2776-04 ####[facility] ([id number])[address], [address] [place] [address] XR CHEST 1 VWon 07-03-2024 XR CHEST 1 VW Normal [facility] AFB CULTURE(CONCENTRATED)on 07-02-2024 Mycobacterium sp identified Org specific cx Nom (Unsp spec) AFB SMEAR NO ACID FAST BACILLI (CONCENTRATED SMEAR) CULTURE RESULTS ACID FAST CULTURE IN PROGRESS Abnormal [facility] Comment on above: Performed By: #### 5 43-9 ####[facility] ([id number])[address], [place] [address] ARTERIAL BLOOD GASon 025 ROBERT'S TEST Normal [facility] Comment on above: Performed By: #### A BG ####[facility] ([id number])[address] [place] [address] BASE,DEFICIT 4.0 MMOL/L High 0.0-2.[address] [facility] Comment on above: Performed By: #### A BG ####[facility] ([id number])[address] [place] [address] Body temperature 98.6 [degF] Normal 37.0 [facility] Comment on above: Performed By: #### A BG ####[facility] ([id number])[address] [place] [address] HCO3 (Bld) [Moles/Vol] 23.2 mmol/L Normal 22-26 P [facility] Comment on above: Performed By: #### A BG ####[facility] ([id number])[address] [place] [address] INSP. O2 CONC. 28 % Normal [facility] Comment on above: Performed By: #### A BG ####[facility] ([id number])[address] [place] [address] Oxygen (Bld) [Partial pressure] 66 mm[Hg] Low 80-[address] [facility] Comment on above: Performed By: #### A BG ####[facility] ([id number])[address] [place] [address] Oxygen saturation in Blood 89.0 % Low >[address] [facility] Comment on above: Performed By: #### A BG ####[facility] ([id number])[address] [place] [address] OXYGEN SOURCE NPPV Normal [facility] Comment on above: Performed By: #### A BG ####[facility] ([id number])[address] [place] [address] PCO2 52.7 MMHG High 35-[address] [facility] Comment on above: Performed By: #### A BG ####[facility] ([id number])[address] [place] [address] pH (Bld) 7.252 [pH] Low 7.350-7.[address] [facility] Comment on above: Performed By: #### A BG ####[facility] ([id number])[address] [place] [address] SAMPLE SITE RRad Normal [facility] Comment on above: Performed By: #### A BG ####[facility] ([id number])[address] [place] [address] SAMPLE TYPE ARTERIAL Normal [facility] Comment on above: Performed By: #### A BG ####[facility] ([id number])[address] [place] [address] AND DIFFon 2024 BODY FLUID COMMENT Interpreta tion-- ------ Normal [facility] Comment on above: Result Comment: Refe rence values for this fluid type areundefined, as fluid accumulation isconsidered abnormal.Assorted lining cells present.Corrected on 07/03 AT 0544: Previously reported as Interpretation Reference values for this fluid type are undefined, as fluid accumulation is considered abnormal. Performed By: #### B FCT ####[facility] ([id number])[address], [place] [address] FLUID CLARITY HAZY Normal [facility] Comment on above: Performed By: #### B FCT ####[facility] ([id number])[address], [place] [address] FLUID COLOR YELLOW Normal [facility] Comment on above: Performed By: #### B FCT ####[facility] ([id number])[address], [place] [address] FLUID LYMPHOCYTE 3 % Normal [facility] Comment on above: Performed By: #### B FCT ####[facility] ([id number])[address], [address], [place] [address] FLUID NEUTROPHILS 18 % Normal [facility] Comment on above: Performed By: #### B FCT ####[facility] ([id number])[address], [place] [address] 220 /uL Normal [facility] Comment on above: Performed By: #### B FCT ####[facility] ([id number])[address], [place] [address] FLUID SPECIMEN TYPE BRONCHOALVEOLAR LAVAGE Normal [facility] Comment on above: Result Comment: LEFT LUNG, LOWER LOBE Performed By: #### B FCT ####[facility] ([id number])[address], [place] [address] MACROPHAGES 79 % Normal [facility] Comment on above: Performed By: #### B FCT ####[facility] ([id number])[address], [place] [address] 76 /uL Normal [facility] Comment on above: Performed By: #### B FCT ####[facility] ([id number])[address] [address] CBC AND AUTO DIFFon 25-20 25 ABSOLUTE BASOPHIL 0.0 X10E9/L Normal 0.0-0.2 [facility] Comment on above: Performed By: #### C BCA, CMP, , 2776-04 ####[facility] ([id number])[address], [address], [place] [address] ABSOLUTE NEUTROPHIL 4.2 X10E9/L Normal 1.5-6.6 [facility] Comment on above: Performed By: #### C BCA, CMP, , 2776-04 ####[facility] ([id number])[address], [place] [address] Basophils/100 WBC (Bld) 0.6 % Normal P [facility] Comment on above: Performed By: #### Bertha BCA, CMP, , 2776-04 ####[facility] ([id number])[address] [address] [place] [address] Eosinophils (Bld) [#/Vol] 0.9 10*3/uL High 0.0-0.[address] [facility] Comment on above: Performed By: #### C BCA, CMP, , 2776-04 ####[facility] ([id number])[address] [place] [address] Eosinophils/100 WBC (Bld) 12.5 % Normal [facility] Comment on above: Performed By: #### C BCA, CMP, , 2776-04 ####[facility] ([id number])[address], [address] [place] [address] Erythrocyte distribution width (RBC) [Ratio] 17.8 % High 11.5-15.[address] [facility] Comment on above: Performed By: #### C BCA, CMP, , 2776-04 ####[facility] ([id number])[address], [address] [address] Hematocrit (Bld) [Volume fraction] 23.1 % Low 35-[address] [facility] Comment on above: Performed By: #### C EWELINA, CMP, , 2776-04 ####[facility] ([id number])[address], [address] [address] Hemoglobin (Bld) [Mass/Vol] 7.6 g/dL Low 11.7-15.[address] [facility] Comment on above: Performed By: #### C BCA, CMP, , 2776-04 ####[facility] ([id number])[address] [address] [place] [address] Lymphocytes (Bld) [#/Vol] 1.2 10*3/uL Normal 1.0-3.[address] [facility] Comment on above: Performed By: #### C EWELINA, CMP, , 2776-04 ####[facility] ([id number])[address] [address] Lymphocytes/100 WBC (Bld) 16.4 % Normal [facility] Comment on above: Performed By: #### Bertha BCA, CMP, , 2776-04 ####[facility] ([id number])[address] [address] [place] [address], [place] [address] MCH (RBC) [Entitic mass] 31.4 pg Normal 27-[address] [facility] Comment on above: Performed By: #### Bertha BCA, CMP, , 2776-04 ####[facility] ([id number])[address] [address] MCHC (RBC) [Mass/Vol] 32.8 g/dL Normal 32-36 [facility] Comment on above: Performed By: #### C BCA, CMP, , 2776-04 ####[facility] ([id number])[address] [place] [address] MCV (RBC) [Entitic vol] 96 fL Normal 80-100 [facility] [place] Comment on above: Performed By: #### C BCA, CMP, , 2776-04 ####[facility] ([id number])[address] [place] [address] Monocytes (Bld) [#/Vol] 0.7 10*3/uL Normal 0-0.[address] [facility] Comment on above: Performed By: #### C BCA, CMP, , 2776-04 ####[facility] ([id number])[address] [address] [address] Monocytes/100 WBC (Bld) 10.4 % Normal [facility] [place] Comment on above: Performed By: #### C BCA, CMP, , 2776-04 ####[facility] ([id number])[address] [address] [place] [address] Neutrophils/100 WBC (Bld) 60.1 % Normal [facility] Comment on above: Performed By: #### Bertha BCA, CMP, , 2776-04 ####[facility] ([id number])[address] [address] [place] [address] Platelet mean volume (Bld) [Entitic vol] 7.0 fL Normal 7-[address] [facility] Comment on above: Performed By: #### C BCA, CMP, , 2776-04 ####[facility] ([id number])[address] [place] [address] Platelets (Bld) [#/Vol] 376 10*3/uL Normal 150-[address] [facility] Comment on above: Performed By: #### C BCA, CMP, , 2776-04 ####[facility] ([id number])[address], [place] [address] RBC COUNT 2.42 X10E12/L Low 3.80-5.[address] [facility] Comment on above: Performed By: #### C BCA, CMP, , 2776-04 ####[facility] ([id number])[address], [address] [place] [address] WBC (Bld) [#/Vol] 7.1 10*3/uL Normal 4.0-11.0 [facility] Comment on above: Performed By: #### C BCA, CMP, , 2776-04 ####[facility] ([id number])[address] [place] [address] COMPREHENSIVE METABOLIC PANE Kael 07-02-2024 Albumin [Mass/Vol] 3.7 g/dL Normal 3.2-5.3 [facility] Comment on above: Performed By: #### C BCA, CMP, , 2776-04 ####[facility] ([id number])[address] [address] [address] ALP [Catalytic activity/Vol] 56 U/L Normal 39-[address] [facility] Comment on above: Performed By: #### C BCA, CMP, , 2776-04 ####[facility] ([id number])[address] [address] [address] ALT [Catalytic activity/Vol] 5 U/L Normal 0-[address] [facility] Comment on above: Performed By: #### C BCA, CMP, , 2776-04 ####[facility] ([id number])[address], [place] [address] Anion gap [Moles/Vol] 14 mmol/L Normal 5-15 [facility] Comment on above: Performed By: #### C BCA, CMP, , 2776-04 ####[facility] ([id number])[address], [place] [address] AST [Catalytic activity/Vol] 8 U/L Normal 0-[address] [facility] Comment on above: Performed By: #### C BCA, CMP, , 2776-04 ####[facility] ([id number])[address], [place] [address] Bilirubin [Mass/Vol] 1.0 mg/dL Normal 0.3-1.2 [facility] Comment on above: Performed By: #### C BCA, CMP, , 2776-04 ####[facility] ([id number])[address], [place] [address] Calcium [Mass/Vol] 10.5 mg/dL Normal 8.5-10.5 [facility] Comment on above: Performed By: #### C BCA, CMP, , 2776-04 ####[facility] ([id number])[address], [place] [address] Chloride [Moles/Vol] 105 mmol/L Normal 98-109 [facility] Comment on above: Performed By: #### C BCA, CMP, , 2776-04 ####[facility] ([id number])[address], [place] [address] CO2 [Moles/Vol] 25 mmol/L Normal 22-[address] [facility] Comment on above: Performed By: #### C BCA, CMP, , 2776-04 ####[facility] ([id number])[address], [place] [address] Creatinine [Mass/Vol] 4.12 mg/dL High 0.40-1.00 [facility] Comment on above: Result Comment: METH OD TRACEABLE TO IDMS STANDARD Performed By: #### C RENA THEODORE, , 2776-04 ####[facility] ([id number])[address], [place] [address] GFR/1.73 sq M.predicted among non-blacks MDRD (S/P/Bld) [Vol rate/Area] 12 mL/min/{1.73_m2} Low >[address] [facility] Comment on above: Result Comment: Repo rted eGFR is based on theCKD-EPI 2020 equation that doesnot use a race coefficient. Performed By: #### C RENA THEODORE, , 2776-04 ####[facility] ([id number])[address] [address] [address] Glucose [Mass/Vol] 92 mg/dL Normal 65-99 [facility] Comment on above: Performed By: #### C RENA THEODORE, , 2776-04 ####[facility] ([id number])[address] [address], [place] [address] Potassium [Moles/Vol] 3.8 mmol/L Normal 3.5-5.0 [facility] Comment on above: Performed By: #### C RENA THEODORE, , 2776-04 ####[facility] ([id number])[address] [address], [place] [address] Protein [Mass/Vol] 6.7 g/dL Normal 6.0-8.0 [facility] Comment on above: Performed By: #### C RENA THEODORE, , 2776-04 ####[facility] ([id number])[address] [address], [place] [address] Sodium [Moles/Vol] 144 mmol/L Normal 134-146 [facility] Comment on above: Performed By: #### C BCA, CMP, 33437-3, 2777-1 ####[facility] ([id number])[address] [place] [address], [address] [address] Urea nitrogen [Mass/Vol] 80 mg/dL High 5-[address] [facility] Comment on above: Performed By: #### C BCA, CMP, 12233-7, 2777-1 ####[facility] ([id number])[address] [place] [address], [address] [address] Cytologyon 07-02-2024 Cytology Normal [facility] Comment on above: Result Comment: [facility] [address] [place] [address] Cytology ConsultationPatient Name:ORESTES ALVARES:1965 (Age: 59)Gender:FTaken:07/02/2024Reported:07/03/2024 16:31Physician(s):Quintin Forman M.D. ([phone])Copy To: Rec. #:[id number]: #[id number] Cytologic DiagnosisLung, left lower lobe, bronchoalveolar lavage:No malignant cells identified.ao/07/03/2024[place] [address], License number: [id number].Electronically Signed Out By Earl Boone MDClinical HistoryMucus plug in respiratory tract [T17.998A]. Acute hypoxic respiratory failure (CMS-HCC) [J96.01].Gross DescriptionReceived was 5ml of clear colorless fluid unfixed labeled as [place], lung, left lower lobe, BAL . CytoLyt added in lab. Unable to obtain cellblock, ThinPrep made.Source of Specimen Lung, left lower lobe, bronchoalveolar lavage Non DATABASE SECURITY ADMINISTRATOR ThinPrepFee Code(s):1; 87936 FUNGAL CULTUREon 07-02-2024 Fungus identified Cx Nom (Unsp spec) FUNGAL SMEAR NO FUNGAL ELEMENTS SEEN ON DIRECT SMEAR CULTURE RESULTS MABLE ALBICANS Abnormal [facility] Comment on above: Performed By: #### 5 80-1 ####[facility] ([id number])[address] [address] LOWER RESPIRATORY CULTUREon 07-02-2024 Bacteria identified Respiratory culture Nom (Sput) Susceptible [facility] Comment on above: Performed By: #### 6 24-7 ####[facility] ([id number])[address] [address] MAGNESIUMon 07-02-2024 Magnesium [Mass/Vol] 1.9 mg/dL Normal 1.8-2.6 [facility] Comment on above: Performed By: #### C RENA THEODORE, , 2777- ####[facility] ([id number])[address] [place] [address], [place] [address] Magnesium Ionized ISE (Bld) [Moles/Vol]on 07-02-2024 Magnesium [Moles/Vol] 0.71 mmol/L Normal 0.45-0.74 [facility] Comment on above: Result Comment: NEW REFERENCE RANGE Performed By: #### 7 3572-0 ####[facility] ([id number])[address] [address] [address] PHOSPHORUSon 07-02-2024 Phosphate [Mass/Vol] 5.2 mg/dL High 2.4-4.9 [facility] Comment on above: Performed By: #### C EWELINA CMP, , 2777- ####[facility] ([id number])[address] [address] [address] POTASSIUMon 07-02-2024 Potassium [Moles/Vol] 4.2 mmol/L Normal 3.5-5.0 [facility] Comment on above: Performed By: #### 2 823-3 ####[facility] ([id number])[address] [address] PROTIME AND INRon 07-02-2024 INR Coag (PPP) [Relative time] 1.2 {INR} Normal 0.9-1.[address] [facility] Comment on above: Performed By: #### P INR ####[facility] ([id number])[address] [place] [address] PT Coag (PPP) [Time] 13.5 s High 9.8-13.2 [facility] Comment on above: Performed By: #### P INR ####[facility] ([id number])[address] [address] XR CHEST 1 VWon 07-02-2024 XR CHEST 1 VW Normal [facility] XR CHEST 1 VW Normal [facility] CBC AND AUTO DIFFon 07-02-19 ABSOLUTE BASOPHIL 0.1 X10E9/L Normal 0.0-0.2 [facility] Comment on above: Performed By: #### C BCA, CMP, , 2776-04 ####[facility] ([id number])[address] [place] [address] ABSOLUTE NEUTROPHIL 3.9 X10E9/L Normal 1.5-6.6 [facility] Comment on above: Performed By: #### C BCA, CMP, , 2776-04 ####[facility] ([id number])[address], [address], [place] [address] Basophils/100 WBC (Bld) 2.0 % Normal [facility] Comment on above: Performed By: #### C BCA, CMP, , 2776-04 ####[facility] ([id number])[address], [address] [address] Eosinophils (Bld) [#/Vol] 1.0 10*3/uL High 0.0-0.[address] [facility] Comment on above: Performed By: #### C EWELINA CMP, , 2776-04 ####[facility] ([id number])[address], [address] [place] [address] Eosinophils/100 WBC (Bld) 14.0 % Normal [facility] Comment on above: Performed By: #### C EWELINA, CMP, , 2776-04 ####[facility] ([id number])[address] [address] Erythrocyte distribution width (RBC) [Ratio] 17.8 % High 11.5-15.[address] [facility] Comment on above: Performed By: #### C EWELINA CMP, , 2776-04 ####[facility] ([id number])[address] [address] [place] [address] Hematocrit (Bld) [Volume fraction] 23.7 % Low 35-[address] [facility] Comment on above: Performed By: #### C EWELINA, CMP, , 2776-04 ####[facility] ([id number])[address] [address] Hemoglobin (Bld) [Mass/Vol] 7.7 g/dL Low 11.7-15.[address] [facility] Comment on above: Performed By: #### C BCA, CMP, , 2776-04 ####[facility] ([id number])[address] [address] Lymphocytes (Bld) [#/Vol] 1.4 10*3/uL Normal 1.0-3.[address] [facility] Comment on above: Performed By: #### C BCA, CMP, , 2776-04 ####[facility] ([id number])[address], [address] [place] [place] [address] Lymphocytes/100 WBC (Bld) 19.6 % Normal [facility] Comment on above: Performed By: #### C BCA, CMP, , 2776-04 ####[facility] ([id number])[address], [address] [place] [address] MCH (RBC) [Entitic mass] 31.1 pg Normal 27-[address] [facility] Comment on above: Performed By: #### C BCA, CMP, , 2776-04 ####[facility] ([id number])[address] [place] [address] MCHC (RBC) [Mass/Vol] 32.5 g/dL Normal 32-36 [facility] Comment on above: Performed By: #### Bertha BCA, CMP, , 2776-04 ####[facility] ([id number])[address] [place] [address] MCV (RBC) [Entitic vol] 96 fL Normal 80-100 P [facility] Comment on above: Performed By: #### Bertha BCA, CMP, , 2776-04 ####[facility] ([id number])[address], [address] [place] [address] Monocytes (Bld) [#/Vol] 0.6 10*3/uL Normal 0-0.[address] [facility] Comment on above: Performed By: #### C BCA, CMP, , 2776-04 ####[facility] ([id number])[address], [address] [place] [address] Monocytes/100 WBC (Bld) 8.8 % Normal P [facility] Comment on above: Performed By: #### Bertha BCA, CMP, , 2776-04 ####[facility] ([id number])[address], [address] [place] [address] Neutrophils/100 WBC (Bld) 55.6 % Normal [facility] Comment on above: Performed By: #### C EWELINA, CMP, , 2776-04 ####[facility] ([id number])[address], [address], [place] [address] Platelet mean volume (Bld) [Entitic vol] 6.9 fL Low 7-[address] [facility] Comment on above: Performed By: #### C BCA, CMP, , 2776-04 ####[facility] ([id number])[address] [address] [place] [address] Platelets (Bld) [#/Vol] 417 10*3/uL Normal 150-[address] [facility] Comment on above: Performed By: #### C BCA, CMP, , 2776-04 ####[facility] ([id number])[address] [address] [place] [address] RBC COUNT 2.47 X10E12/L Low 3.80-5.[address] [facility] Comment on above: Performed By: #### C BCA, CMP, , 2776-04 ####[facility] ([id number])[address] [address] [place] [address] WBC (Bld) [#/Vol] 7.1 10*3/uL Normal 4.0-11.0 [facility] Comment on above: Performed By: #### C BCA, CMP, , 2776-04 ####[facility] ([id number])[address], [address] [place] [address] COMPREHENSIVE METABOLIC PANE Kael 07-01-2024 Albumin [Mass/Vol] 3.7 g/dL Normal 3.2-5.3 [facility] Comment on above: Performed By: #### C BCA, CMP, , 2776-04 ####[facility] ([id number])[address], [address], [place] [address] ALP [Catalytic activity/Vol] 61 U/L Normal 39-[address] [facility] Comment on above: Performed By: #### C BCA, CMP, , 2776-04 ####[facility] ([id number])[address], [address], [place] [address] ALT [Catalytic activity/Vol] 4 U/L Normal 0-[address] [facility] Comment on above: Performed By: #### C BCA, CMP, , 2776-04 ####[facility] ([id number])[address], [address], [place] [address] Anion gap [Moles/Vol] 16 mmol/L High 5-15 [facility] Comment on above: Performed By: #### C BCA, CMP, , 2776-04 ####[facility] ([id number])[address], [address], [place] [address] AST [Catalytic activity/Vol] 10 U/L Normal 0-[address] [facility] Comment on above: Performed By: #### C BCA, CMP, , 2776-04 ####[facility] ([id number])[address], [address], [place] [address] Bilirubin [Mass/Vol] 1.1 mg/dL Normal 0.3-1.2 [facility] Comment on above: Performed By: #### C BCA, CMP, , 2776-04 ####[facility] ([id number])[address], [address], [place] [address] Calcium [Mass/Vol] 10.6 mg/dL High 8.5-10.5 [facility] Comment on above: Performed By: #### C BCA, CMP, , 2776-04 ####[facility] ([id number])[address], [address] [place] [address] Chloride [Moles/Vol] 106 mmol/L Normal 98-109 [facility] Comment on above: Performed By: #### C BCA, CMP, , 2776-04 ####[facility] ([id number])[address], [address] [address] CO2 [Moles/Vol] 22 mmol/L Normal 22-[address] [facility] Comment on above: Performed By: #### C BCA, CMP, , 2776-04 ####[facility] ([id number])[address], [address] [place] [address] Creatinine [Mass/Vol] 3.99 mg/dL High 0.40-1.00 [facility] Comment on above: Result Comment: METH OD TRACEABLE TO IDMS STANDARD Performed By: #### C BCA, [facility], , 2776-04 ####[facility] ([id number])[address] [address] [address] GFR/1.73 sq M.predicted among non-blacks MDRD (S/P/Bld) [Vol rate/Area] 12 mL/min/{1.73_m2} Low >[address] [facility] Comment on above: Result Comment: Repo rted eGFR is based on theCKD-EPI 2020 equation that doesnot use a race coefficient. Performed By: #### C BCA, CMP, , 2776-04 ####[facility] ([id number])[address] [address] [place] [address] Glucose [Mass/Vol] 76 mg/dL Normal 65-99 [facility] Comment on above: Performed By: #### C BCA, CMP, , 2776-04 ####[facility] ([id number])[address], [address] [address] Potassium [Moles/Vol] 4.0 mmol/L Normal 3.5-5.0 [facility] Comment on above: Performed By: #### C BCA, CMP, , 2776-1 ####[facility] ([id number])[address], [address], [place] [address] Protein [Mass/Vol] 6.9 g/dL Normal 6.0-8.0 [facility] Comment on above: Performed By: #### C BCA, CMP, , 2776-1 ####[facility] ([id number])[address], [place] [address] Sodium [Moles/Vol] 144 mmol/L Normal 134-146 [facility] Comment on above: Performed By: #### C BCA, CMP, , 2776-04 ####[facility] ([id number])[address] [address] [place] [address] Urea nitrogen [Mass/Vol] 83 mg/dL High 5-[address] [facility] Comment on above: Performed By: #### C BCA, CMP, , 7-1 ####[facility] ([id number])[address] [address] [place] [address] Calcium.ionized (Bld) [Mass/ Vol]on 07-01-2024 IONIZED CALCIUM 5.6 mg/dL High 4.5-5.[address] [facility] Comment on above: Performed By: #### 3 8230-9, 57461-7 ####[facility] ([id number])[address] [address] [place] [address] FL SWALLOW MOTILITY FUNCTION on 07-01-2024 FL SWALLOW MOTILITY FUNCTION Normal [facility] MAGNESIUMon 07-01-2024 Magnesium [Mass/Vol] 2.1 mg/dL Normal 1.8-2.6 [facility] Comment on above: Performed By: #### C BCA, CMP, , 2776-04 ####[facility] ([id number])[address] [place] [address] Magnesium Ionized ISE (Bld) [Moles/Vol]on 07-01-2024 Magnesium [Moles/Vol] 0.48 mmol/L Normal 0.45-0.74 [facility] Comment on above: Result Comment: NEW REFERENCE RANGE Performed By: #### 3 8230-9, 25224-4 ####[facility] ([id number])[address], [address] [address] PHOSPHORUSon 07-01-2024 Phosphate [Mass/Vol] 5.3 mg/dL High 2.4-4.9 [facility] Comment on above: Performed By: #### C EWELINA, CMP, , 2776-04 ####[facility] ([id number])[address] [address] XR CHEST 1 VWon 07-01-2024 XR CHEST 1 VW Normal [facility] CBC AND AUTO DIFFon 07-01-19 25 ABSOLUTE BASOPHIL 0.1 X10E9/L Normal 0.0-0.2 [facility] Comment on above: Performed By: #### C BCA, CMP, , 2776-04 ####[facility] ([id number])[address] [place] [address] ABSOLUTE NEUTROPHIL 3.9 X10E9/L Normal 1.5-6.6 [facility] Comment on above: Performed By: #### C BCA, CMP, , 2776-04 ####[facility] ([id number])[address] [place] [address] Basophils/100 WBC (Bld) 0.8 % Normal P [facility] Comment on above: Performed By: #### C EWELINA, CMP, , 2776-04 ####[facility] ([id number])[address], [place] [address] Eosinophils (Bld) [#/Vol] 0.9 10*3/uL High 0.0-0.[address] [facility] Comment on above: Performed By: #### C EWELINA, CMP, , 2776-04 ####[facility] ([id number])[address] [address], [place] [address] Eosinophils/100 WBC (Bld) 13.3 % Normal [facility] Comment on above: Performed By: #### C EWELINA, CMP, , 2776-04 ####[facility] ([id number])[address] [address], [place] [address] Erythrocyte distribution width (RBC) [Ratio] 18.3 % High 11.5-15.[address] [facility] Comment on above: Performed By: #### C EWELINA CMP, , 2776-04 ####[facility] ([id number])[address] [address] [address] Hematocrit (Bld) [Volume fraction] 22.7 % Low 35-[address] [facility] Comment on above: Performed By: #### C EWELINA, CMP, , 2776-04 ####[facility] ([id number])[address] [address] [address] Hemoglobin (Bld) [Mass/Vol] 7.5 g/dL Low 11.7-15.[address] [facility] Comment on above: Performed By: #### C BCA, CMP, , 2776-04 ####[facility] ([id number])[address] [address] [address] Lymphocytes (Bld) [#/Vol] 1.2 10*3/uL Normal 1.0-3.[address] [facility] Comment on above: Performed By: #### C EWELINA CMP, , 2776-04 ####[facility] ([id number])[address], [address], [place] [address] Lymphocytes/100 WBC (Bld) 18.2 % Normal [facility] Comment on above: Performed By: #### C EWELINA, CMP, , 2776-04 ####[facility] ([id number])[address], [place] [address] MCH (RBC) [Entitic mass] 31.5 pg Normal 27-[address] [facility] Comment on above: Performed By: #### Bertha THEODORE CMP, , 2776-04 ####[facility] ([id number])[address], [place] [address] MCHC (RBC) [Mass/Vol] 32.9 g/dL Normal 32-36 [facility] Comment on above: Performed By: #### Bertha THEODORE CMP, , 2776-04 ####[facility] ([id number])[address], [place] [address] MCV (RBC) [Entitic vol] 96 fL Normal 80-100 [facility] Comment on above: Performed By: #### C EWELINA, CMP, , 2776-04 ####[facility] ([id number])[address], [address], [place] [address] Monocytes (Bld) [#/Vol] 0.8 10*3/uL Normal 0-0.[address] [facility] Comment on above: Performed By: #### Bertha THEODORE, CMP, , 2776-04 ####[facility] ([id number])[address], [address], [place] [address] Monocytes/100 WBC (Bld) 11.2 % Normal [facility] Comment on above: Performed By: #### C EWELINA, CMP, , 2776-04 ####[facility] ([id number])[address] [place] [address] Neutrophils/100 WBC (Bld) 56.5 % Normal [facility] Comment on above: Performed By: #### C BCA, CMP, , 2776-04 ####[facility] ([id number])[address] [place] [address] Platelet mean volume (Bld) [Entitic vol] 6.8 fL Low 7-[address] [facility] Comment on above: Performed By: #### C BCA, CMP, , 2776-04 ####[facility] ([id number])[address] [address] [place] [address] Platelets (Bld) [#/Vol] 443 10*3/uL Normal 150-[address] [facility] Comment on above: Performed By: #### Bertha BCA, CMP, , 2776-04 ####[facility] ([id number])[address] [address] [place] [address] RBC COUNT 2.37 X10E12/L Low 3.80-5.[address] [facility] Comment on above: Performed By: #### C BCA, CMP, , 2776-04 ####[facility] ([id number])[address] [address] [place] [address] WBC (Bld) [#/Vol] 6.9 10*3/uL Normal 4.0-11.0 [facility] Comment on above: Performed By: #### C BCA, CMP, , 2776-04 ####[facility] ([id number])[address], [place] [address] COMPREHENSIVE METABOLIC PANE Kael 06-30-2024 Albumin [Mass/Vol] 3.9 g/dL Normal 3.2-5.3 [facility] Comment on above: Performed By: #### C BCA, CMP, 97680-9, 2776-1 ####[facility] ([id number])[address], [place] [address] ALP [Catalytic activity/Vol] 60 U/L Normal 39-[address] [facility] Comment on above: Performed By: #### C BCA, CMP, , 2776- ####[facility] ([id number])[address], [place] [address] ALT [Catalytic activity/Vol] 5 U/L Normal 0-[address] [facility] Comment on above: Performed By: #### C BCA, CMP, , 2776- ####[facility] ([id number])[address], [place] [address] Anion gap [Moles/Vol] 13 mmol/L Normal 5-15 [facility] Comment on above: Performed By: #### C BCA, CMP, , 2776- ####[facility] ([id number])[address], [place] [address] AST [Catalytic activity/Vol] 11 U/L Normal 0-[address] [facility] Comment on above: Performed By: #### C BCA, CMP, , 2776- ####[facility] ([id number])[address], [place] [address] Bilirubin [Mass/Vol] 1.0 mg/dL Normal 0.3-1.2 [facility] Comment on above: Performed By: #### C BCA, CMP, , 2776-1 ####[facility] ([id number])[address], [place] [address] Calcium [Mass/Vol] 10.5 mg/dL Normal 8.5-10.5 [facility] Comment on above: Performed By: #### C BCA, CMP, , 2776-04 ####[facility] ([id number])[address], [place] [address] Chloride [Moles/Vol] 103 mmol/L Normal 98-109 [facility] Comment on above: Performed By: #### C BCA, CMP, , 2776-04 ####[facility] ([id number])[address], [place] [address] CO2 [Moles/Vol] 25 mmol/L Normal 22-[address] [facility] Comment on above: Performed By: #### C BCA, CMP, , 2776-04 ####[facility] ([id number])[address] [address], [place] [address] Creatinine [Mass/Vol] 3.76 mg/dL High 0.40-1.00 [facility] Comment on above: Result Comment: METH OD TRACEABLE TO IDMS STANDARD Performed By: #### C BCA, CMP, , 2776-04 ####[facility] ([id number])[address] [address], [place] [address] GFR/1.73 sq M.predicted among non-blacks MDRD (S/P/Bld) [Vol rate/Area] 13 mL/min/{1.73_m2} Low >[address] [facility] Comment on above: Result Comment: Repo rted eGFR is based on theCKD-EPI 2020 equation that doesnot use a race coefficient. Performed By: #### C BCA, CMP, , 2776-04 ####[facility] ([id number])[address] [address], [place] [address] Glucose [Mass/Vol] 90 mg/dL Normal 65-99 [facility] Comment on above: Performed By: #### C EWELINA, CMP, , 2776-04 ####[facility] ([id number])[address], [place] [address] Potassium [Moles/Vol] 3.8 mmol/L Normal 3.5-5.0 [facility] Comment on above: Performed By: #### C BCA, CMP, , 2776-04 ####[facility] ([id number])[address], [place] [address] Protein [Mass/Vol] 7.1 g/dL Normal 6.0-8.0 [facility] Comment on above: Performed By: #### C EWELINA, CMP, , 2776-04 ####[facility] ([id number])[address], [address], [place] [address] Sodium [Moles/Vol] 141 mmol/L Normal 134-146 [facility] Comment on above: Performed By: #### C EWELINA, CMP, , 2776-04 ####[facility] ([id number])[address], [address], [place] [address] Urea nitrogen [Mass/Vol] 84 mg/dL High 5-[address] [facility] Comment on above: Performed By: #### C BCA, CMP, , 2776-04 ####[facility] ([id number])[address], [address], [place] [address] MAGNESIUMon 06-30-2024 Magnesium [Mass/Vol] 2.2 mg/dL Normal 1.8-2.6 [facility] Comment on above: Performed By: #### C BCA, CMP, , 2776-04 ####[facility] ([id number])[address], [address], [place] [address] PHOSPHORUSon 06-30-2024 Phosphate [Mass/Vol] 5.2 mg/dL High 2.4-4.9 [facility] Comment on above: Performed By: #### C EWELINA CMP, , 2776-04 ####[facility] ([id number])[address] [address] POTASSIUMon 06-30-2024 Potassium [Moles/Vol] 4.6 mmol/L Normal 3.5-5.0 [facility] Comment on above: Performed By: #### 2 823-3 ####[facility] ([id number])[address], [address] [place] [address] XR CHEST 1 VWon 06-30-2024 XR CHEST 1 VW Normal [facility] CBC AND AUTO DIFFon 06-30-19 25 ABSOLUTE BASOPHIL 0.1 X10E9/L Normal 0.0-0.2 [facility] Comment on above: Performed By: #### C EWELINA [facility], , 2776-04 ####[facility] ([id number])[address] [address] [place] [address] ABSOLUTE NEUTROPHIL 4.3 X10E9/L Normal 1.5-6.6 [facility] Comment on above: Performed By: #### C EWELINA, CMP, , 2776-04 ####[facility] ([id number])[address], [address] [place] [address] Basophils/100 WBC (Bld) 0.7 % Normal [facility] [place] Comment on above: Performed By: #### C BCA, CMP, , 2776-04 ####[facility] ([id number])[address], [place] [address] Eosinophils (Bld) [#/Vol] 0.9 10*3/uL High 0.0-0.[address] [facility] Comment on above: Performed By: #### C EWELINA, CMP, , 2776-04 ####[facility] ([id number])[address], [address] [place] [address] Eosinophils/100 WBC (Bld) 12.6 % Normal [facility] Comment on above: Performed By: #### C EWELINA, CMP, , 2776-04 ####[facility] ([id number])[address], [address] [place] [address] Erythrocyte distribution width (RBC) [Ratio] 17.5 % High 11.5-15.[address] [facility] Comment on above: Performed By: #### C EWELINA, CMP, , 2776-04 ####[facility] ([id number])[address] [address], [place] [address] Hematocrit (Bld) [Volume fraction] 21.9 % Low 35-[address] [facility] Comment on above: Performed By: #### C EWELINA, CMP, , 2776-04 ####[facility] ([id number])[address] [facility] [address] [place] [address] Hemoglobin (Bld) [Mass/Vol] 7.4 g/dL Low 11.7-15.[address] [facility] Comment on above: Performed By: #### C EWELINA, CMP, , 2776-04 ####[facility] ([id number])[address] [address] [place] [address] Lymphocytes (Bld) [#/Vol] 1.4 10*3/uL Normal 1.0-3.[address] [facility] Comment on above: Performed By: #### C BCA, CMP, , 2776-04 ####[facility] ([id number])[address] [address], [place] [address] Lymphocytes/100 WBC (Bld) 18.9 % Normal [facility] Comment on above: Performed By: #### C EWELINA, CMP, , 2776-04 ####[facility] ([id number])[address], [address] [place] [place] [address] MCH (RBC) [Entitic mass] 32.0 pg Normal 27-[address] [facility] Comment on above: Performed By: #### Bertha BCA, CMP, , 2776-04 ####[facility] ([id number])[address] [place] [address] MCHC (RBC) [Mass/Vol] 33.6 g/dL Normal 32-36 [facility] Comment on above: Performed By: #### Bertha BCA, CMP, , 2776-04 ####[facility] ([id number])[address] [place] [address] MCV (RBC) [Entitic vol] 95 fL Normal 80-100 P [facility] Comment on above: Performed By: #### Bertha THEODORE, CMP, , 2776-04 ####[facility] ([id number])[address] [address] [place] [address] Monocytes (Bld) [#/Vol] 0.7 10*3/uL Normal 0-0.[address] [facility] Comment on above: Performed By: #### Bertha BCA, CMP, , 2776-04 ####[facility] ([id number])[address] [address] [place] [place] [address] Monocytes/100 WBC (Bld) 9.5 % Normal P [facility] Comment on above: Performed By: #### Bertha BCA, CMP, , 2776-04 ####[facility] ([id number])[address], [address] [place] [address] Neutrophils/100 WBC (Bld) 58.3 % Normal [facility] Comment on above: Performed By: #### C BCA, CMP, , 2776-04 ####[facility] ([id number])[address], [address], [place] [address] Platelet mean volume (Bld) [Entitic vol] 6.8 fL Low 7-[address] [facility] Comment on above: Performed By: #### C BCA, CMP, , 2776-04 ####[facility] ([id number])[address], [address], [place] [address] Platelets (Bld) [#/Vol] 458 10*3/uL High 150-[address] [facility] Comment on above: Performed By: #### C BCA, CMP, , 2776-04 ####[facility] ([id number])[address], [address], [place] [address] RBC COUNT 2.30 X10E12/L Low 3.80-5.[address] [facility] Comment on above: Performed By: #### C BCA, CMP, , 2776-04 ####[facility] ([id number])[address], [address] [place] [address] WBC (Bld) [#/Vol] 7.3 10*3/uL Normal 4.0-11.0 [facility] Comment on above: Performed By: #### C BCA, CMP, , 2776-04 ####[facility] ([id number])[address], [address] [place] [address] COMPREHENSIVE METABOLIC PANE Kael 06-29-2024 Albumin [Mass/Vol] 3.8 g/dL Normal 3.2-5.3 [facility] Comment on above: Performed By: #### C BCA, CMP, , 2776-04 ####[facility] ([id number])[address], [address], [place] [address] ALP [Catalytic activity/Vol] 66 U/L Normal 39-[address] [facility] Comment on above: Performed By: #### C BCA, CMP, , 2776-04 ####[facility] ([id number])[address], [address], [place] [address] ALT [Catalytic activity/Vol] 5 U/L Normal 0-[address] [facility] Comment on above: Performed By: #### C BCA, CMP, , 2776-04 ####[facility] ([id number])[address], [address], [place] [address] Anion gap [Moles/Vol] 15 mmol/L Normal 5-15 [facility] Comment on above: Performed By: #### C BCA, CMP, , 2776-04 ####[facility] ([id number])[address], [address], [place] [address] AST [Catalytic activity/Vol] 11 U/L Normal 0-[address] [facility] Comment on above: Performed By: #### C BCA, CMP, , 2776-04 ####[facility] ([id number])[address], [address], [place] [address] Bilirubin [Mass/Vol] 0.9 mg/dL Normal 0.3-1.2 [facility] Comment on above: Performed By: #### C BCA, CMP, , 2776-04 ####[facility] ([id number])[address], [address], [place] [address] Calcium [Mass/Vol] 10.2 mg/dL Normal 8.5-10.5 [facility] Comment on above: Performed By: #### C BCA, CMP, , 2776- ####[facility] ([id number])[address], [address], [place] [address] Chloride [Moles/Vol] 103 mmol/L Normal 98-109 [facility] Comment on above: Performed By: #### C EWELINA [facility], , 2776-04 ####[facility] ([id number])[address], [address], [place] [address] CO2 [Moles/Vol] 23 mmol/L Normal 22-[address] [facility] Comment on above: Performed By: #### C RENA THEODORE, , 2776-04 ####[facility] ([id number])[address], [address], [place] [address] Creatinine [Mass/Vol] 3.65 mg/dL High 0.40-1.00 [facility] Comment on above: Result Comment: METH OD TRACEABLE TO IDMS STANDARD Performed By: #### C RENA THEODORE, , 2776-04 ####[facility] ([id number])[address] [address], [place] [address] GFR/1.73 sq M.predicted among non-blacks MDRD (S/P/Bld) [Vol rate/Area] 14 mL/min/{1.73_m2} Low >[address] [facility] Comment on above: Result Comment: Repo rted eGFR is based on theCKD-EPI 2020 equation that doesnot use a race coefficient. Performed By: #### C RENA THEODORE, , 2776-04 ####[facility] ([id number])[address] [address], [place] [address] Glucose [Mass/Vol] 101 mg/dL High 65-99 [facility] Comment on above: Performed By: #### C EWELINA CMP, , 2776-04 ####[facility] ([id number])[address] [address], [place] [address] Potassium [Moles/Vol] 3.6 mmol/L Normal 3.5-5.0 [facility] Comment on above: Performed By: #### C EWELINA CMP, , 2776-04 ####[facility] ([id number])[address], [address], [place] [address] Protein [Mass/Vol] 6.8 g/dL Normal 6.0-8.0 [facility] Comment on above: Performed By: #### C EWELINA, CMP, , 2776-04 ####[facility] ([id number])[address], [address], [place] [address] Sodium [Moles/Vol] 141 mmol/L Normal 134-146 [facility] Comment on above: Performed By: #### C EWELINA CMP, , 2776-04 ####[facility] ([id number])[address], [address], [place] [address] Urea nitrogen [Mass/Vol] 76 mg/dL High 5-[address] [facility] Comment on above: Performed By: #### C EWELINA, CMP, , 2776-04 ####[facility] ([id number])[address], [address], [place] [address] Glucose Glucometer (BldC) [M ass/Vol]on 06-29-2024 Glucose [Mass/Vol] 95 mg/dL Normal 65-99 [facility] MAGNESIUMon 06-29-2024 Magnesium [Mass/Vol] 2.2 mg/dL Normal 1.8-2.6 [facility] Comment on above: Performed By: #### C EWELINA, CMP, , 2776-04 ####[facility] ([id number])[address], [address], [place] [address] PHOSPHORUSon 06-29-2024 Phosphate [Mass/Vol] 5.2 mg/dL High 2.4-4.9 [facility] Comment on above: Performed By: #### C BCA, CMP, 93997-7, 2777-1 ####[facility] ([id number])[address], [address], [place] [address] POTASSIUMon 06-29-2024 Potassium [Moles/Vol] 3.9 mmol/L Normal 3.5-5.0 [facility] Comment on above: Performed By: #### 2 823-3 ####[facility] ([id number])[address], [address], [place] [address] VENOUS BLOOD GASon ROBERT'S TEST Normal [facility] Comment on above: Performed By: #### V BG ####[facility] ([id number])[address] [place] [address] BASE,DEFICIT 3.0 MMOL/L High 0.0-2.[address] [facility] Comment on above: Performed By: #### V BG ####[facility] ([id number])[address] [place] [address] Body temperature 98.6 [degF] Normal 37.0 [facility] Comment on above: Performed By: #### V BG ####[facility] ([id number])[address] [place] [address] HCO3 (Bld) [Moles/Vol] 24.5 mmol/L High 20.0-24.0 [facility] Comment on above: Performed By: #### V BG ####[facility] ([id number])[address] [place] [address] INSP. O2 CONC. 4 % Normal [facility] Comment on above: Performed By: #### V BG ####[facility] ([id number])[address] [place] [address] Oxygen saturation in Blood 54.0 % Low >80.[address] [facility] Comment on above: Performed By: #### V BG ####[facility] ([id number])[address] [place] [address] OXYGEN SOURCE NC Normal [facility] Comment on above: Performed By: #### V BG ####[facility] ([id number])[address] [place] [address] PCO2, VENOUS 58.6 MMHG High 35-[address] [facility] Comment on above: Performed By: #### V BG ####[facility] ([id number])[address] [place] [address] PH, VENOUS 7.230 Low 7.320-7.[address] [facility] Comment on above: Performed By: #### V BG ####[facility] ([id number])[address] [place] [address] PO2, VENOUS 35 MMHG Normal 30-[address] [facility] Comment on above: Performed By: #### V BG ####[facility] ([id number])[address] [place] [address] SAMPLE SITE N/A Normal [facility] Comment on above: Performed By: #### V BG ####[facility] ([id number])[address] [place] [address] SAMPLE TYPE VENOUS Normal [facility] Comment on above: Performed By: #### V BG ####[facility] ([id number])[address] [place] [address] XR CHEST 1 VWon 06-29-2024 XR CHEST 1 VW Normal [facility] CBC AND AUTO DIFFon 06-29-19 25 ABSOLUTE BASOPHIL 0.1 X10E9/L Normal 0.0-0.2 [facility] Comment on above: Performed By: #### C BCA, CMP, 94444-1, 2777-1 ####[facility] ([id number])[address], [address], [place] [address] ABSOLUTE NEUTROPHIL 4.9 X10E9/L Normal 1.5-6.6 [facility] Comment on above: Performed By: #### C EWELINA, CMP, , 2776-04 ####[facility] ([id number])[address], [address] [place] [address] Basophils/100 WBC (Bld) 1.3 % Normal [facility] Comment on above: Performed By: #### C EWELINA, CMP, , 2776-04 ####[facility] ([id number])[address], [address] [place] [address] Eosinophils (Bld) [#/Vol] 0.8 10*3/uL High 0.0-0.[address] [facility] Comment on above: Performed By: #### C BCA, CMP, , 2776-04 ####[facility] ([id number])[address], [address] [address] Eosinophils/100 WBC (Bld) 9.6 % Normal [facility] Comment on above: Performed By: #### C BCA, CMP, , 2776-04 ####[facility] ([id number])[address], [address] [address] Erythrocyte distribution width (RBC) [Ratio] 17.6 % High 11.5-15.[address] [facility] Comment on above: Performed By: #### C BCA, CMP, , 2776-04 ####[facility] ([id number])[address], [address], [place] [address] Hematocrit (Bld) [Volume fraction] 22.6 % Low 35-[address] [facility] Comment on above: Performed By: #### C BCA, CMP, , 2776-04 ####[facility] ([id number])[address] [address] [address] Hemoglobin (Bld) [Mass/Vol] 7.4 g/dL Low 11.7-15.[address] [facility] Comment on above: Performed By: #### C BCA, CMP, , 2776-04 ####[facility] ([id number])[address] [address], [place] [address] Lymphocytes (Bld) [#/Vol] 1.3 10*3/uL Normal 1.0-3.[address] [facility] Comment on above: Performed By: #### C BCA, CMP, , 2776-04 ####[facility] ([id number])[address] [facility] [address], [place] [address] Lymphocytes/100 WBC (Bld) 15.7 % Normal [facility] Comment on above: Performed By: #### C BCA, CMP, , 2776-04 ####[facility] ([id number])[address] [address] [address] MCH (RBC) [Entitic mass] 31.4 pg Normal 27-[address] [facility] Comment on above: Performed By: #### Bertha BCA, CMP, , 2776-04 ####[facility] ([id number])[address] [address] [address] MCHC (RBC) [Mass/Vol] 32.8 g/dL Normal 32-36 [facility] Comment on above: Performed By: #### C BCA, CMP, , 2776-04 ####[facility] ([id number])[address] [address] [place] [address] MCV (RBC) [Entitic vol] 96 fL Normal 80-100 [facility] Comment on above: Performed By: #### C BCA, CMP, , 2776-04 ####[facility] ([id number])[address], [address], [place] [address] Monocytes (Bld) [#/Vol] 0.9 10*3/uL Normal 0-0.[address] [facility] Comment on above: Performed By: #### C BCA, CMP, , 2776-04 ####[facility] ([id number])[address], [address], [place] [address] Monocytes/100 WBC (Bld) 11.8 % Normal [facility] Comment on above: Performed By: #### C BCA, CMP, , 2776-04 ####[facility] ([id number])[address], [address], [place] [address] Neutrophils/100 WBC (Bld) 61.6 % Normal [facility] Comment on above: Performed By: #### Bertha BCA, CMP, , 2776-04 ####[facility] ([id number])[address], [address], [place] [address] Platelet mean volume (Bld) [Entitic vol] 6.7 fL Low 7-[address] [facility] Comment on above: Performed By: #### C BCA, CMP, , 2776-04 ####[facility] ([id number])[address], [address], [place] [address] Platelets (Bld) [#/Vol] 430 10*3/uL Normal 150-[address] [facility] Comment on above: Performed By: #### C BCA, CMP, , 2776-04 ####[facility] ([id number])[address], [address], [place] [address] RBC COUNT 2.36 X10E12/L Low 3.80-5.[address] [facility] Comment on above: Performed By: #### C BCA, CMP, , 2776-04 ####[facility] ([id number])[address] [address] WBC (Bld) [#/Vol] 8.0 10*3/uL Normal 4.0-11.0 [facility] Comment on above: Performed By: #### C BCA, CMP, , 2776-04 ####[facility] ([id number])[address] [address] COMPREHENSIVE METABOLIC PANE Kael 06-28-2024 Albumin [Mass/Vol] 3.9 g/dL Normal 3.2-5.3 [facility] Comment on above: Performed By: #### C BCA, CMP, , 2776-04 ####[facility] ([id number])[address] [address] ALP [Catalytic activity/Vol] 64 U/L Normal 39-[address] [facility] Comment on above: Performed By: #### C BCA, CMP, , 2776-04 ####[facility] ([id number])[address], [address] [place] [address], [place] [address] ALT [Catalytic activity/Vol] 5 U/L Normal 0-[address] [facility] Comment on above: Performed By: #### C BCA, CMP, , 2776- ####[facility] ([id number])[address] [place] [address] Anion gap [Moles/Vol] 16 mmol/L High 5-15 [facility] Comment on above: Performed By: #### C BCA, CMP, , 2776-04 ####[facility] ([id number])[address] [address] AST [Catalytic activity/Vol] 11 U/L Normal 0-[address] [facility] Comment on above: Performed By: #### C BCA, CMP, , 2776-04 ####[facility] ([id number])[address], [place] [address] Bilirubin [Mass/Vol] 1.0 mg/dL Normal 0.3-1.2 [facility] Comment on above: Performed By: #### C BCA, CMP, , 2776-04 ####[facility] ([id number])[address], [place] [address] Calcium [Mass/Vol] 10.4 mg/dL Normal 8.5-10.5 [facility] Comment on above: Performed By: #### C BCA, CMP, , 2776-04 ####[facility] ([id number])[address] [address], [place] [address] Chloride [Moles/Vol] 101 mmol/L Normal 98-109 [facility] Comment on above: Performed By: #### C BCA, CMP, , 2776-04 ####[facility] ([id number])[address] [address], [place] [address] CO2 [Moles/Vol] 21 mmol/L Low 22-[address] [facility] Comment on above: Performed By: #### C BCA, CMP, , 2776-04 ####[facility] ([id number])[address] [address], [place] [address] Creatinine [Mass/Vol] 3.26 mg/dL High 0.40-1.00 [facility] Comment on above: Result Comment: METH OD TRACEABLE TO IDMS STANDARD Performed By: #### C BCA, CMP, , 2776-04 ####[facility] ([id number])[address] [address], [place] [address] GFR/1.73 sq M.predicted among non-blacks MDRD (S/P/Bld) [Vol rate/Area] 16 mL/min/{1.73_m2} Low >[address] [facility] Comment on above: Result Comment: Repo rted eGFR is based on theD-EPI 2020 equation that doesnot use a race coefficient. Performed By: #### C RENA THEODORE, , 2776-04 ####[facility] ([id number])[address], [place] [address] Glucose [Mass/Vol] 83 mg/dL Normal 65-99 [facility] Comment on above: Performed By: #### C EWELINA CMP, , 2776-04 ####[facility] ([id number])[address], [place] [address] Potassium [Moles/Vol] 3.9 mmol/L Normal 3.5-5.0 [facility] Comment on above: Performed By: #### C EWELINA, CMP, , 2776-04 ####[facility] ([id number])[address], [address], [place] [address] Protein [Mass/Vol] 7.0 g/dL Normal 6.0-8.0 [facility] Comment on above: Performed By: #### C EWELINA CMP, , 2776-04 ####[facility] ([id number])[address] [address], [place] [address] Sodium [Moles/Vol] 138 mmol/L Normal 134-146 [facility] Comment on above: Performed By: #### C EWELINA, CMP, , 2776-04 ####[facility] ([id number])[address], [address], [place] [address] Urea nitrogen [Mass/Vol] 76 mg/dL High 5-[address] [facility] Comment on above: Performed By: #### C BCA, CMP, 2776-04 ####[facility] ([id number])[address] [address] MAGNESIUMon 06-28-2024 Magnesium [Mass/Vol] 2.4 mg/dL Normal 1.8-2.6 [facility] Comment on above: Performed By: #### C EWELINA CMP, , 2776-04 ####[facility] ([id number])[address], [place] [address] PHOSPHORUSon 06-28-2024 Phosphate [Mass/Vol] 5.5 mg/dL High 2.4-4.9 [facility] Comment on above: Performed By: #### C EWELINA CMP, , 2776-04 ####[facility] ([id number])[address], [address] [place] [address] CBC AND AUTO DIFFon 06-28-19 ABSOLUTE BASOPHIL 0.1 X10E9/L Normal 0.0-0.2 [facility] Comment on above: Performed By: #### Bertha THEODORE CMP, , 2776-04 ####[facility] ([id number])[address], [address] [place] [address] ABSOLUTE NEUTROPHIL 4.1 X10E9/L Normal 1.5-6.6 [facility] Comment on above: Performed By: #### Bertha THEODORE, CMP, , 2776-04 ####[facility] ([id number])[address], [address] [place] [address] Basophils/100 WBC (Bld) 0.8 % Normal [facility] [place] Comment on above: Performed By: #### Bertha THEODORE, CMP, , 2776-04 ####[facility] ([id number])[address] [address], [place] [address] Eosinophils (Bld) [#/Vol] 0.4 10*3/uL Normal 0.0-0.[address] [facility] Comment on above: Performed By: #### C EWELINA CMP, , 2776-04 ####[facility] ([id number])[address] [address], [place] [address] Eosinophils/100 WBC (Bld) 6.0 % Normal [facility] Comment on above: Performed By: #### C EWELINA, CMP, , 2776-04 ####[facility] ([id number])[address] [address], [place] [address] Erythrocyte distribution width (RBC) [Ratio] 17.5 % High 11.5-15.[address] [facility] Comment on above: Performed By: #### Bertha THEODORE CMP, , 2776-04 ####[facility] REHABILITATION LAB ([id number])[address] [address], [place] [address] Hematocrit (Bld) [Volume fraction] 22.2 % Low 35-[address] [facility] Comment on above: Performed By: #### Bertha THEODORE, CMP, , 2776-04 ####[facility] ([id number])[address] [address] Hemoglobin (Bld) [Mass/Vol] 7.4 g/dL Low 11.7-15.[address] [facility] Comment on above: Performed By: #### C BCA, CMP, , 2776-04 ####[facility] ([id number])[address] [address], [place] [address] Lymphocytes (Bld) [#/Vol] 1.3 10*3/uL Normal 1.0-3.[address] [facility] Comment on above: Performed By: #### C BCA, CMP, , 2776-04 ####[facility] ([id number])[address] [place] [address] Lymphocytes/100 WBC (Bld) 19.0 % Normal [facility] Comment on above: Performed By: #### C BCA, CMP, , 2776-04 ####[facility] ([id number])[address] [address], [place] [address] MCH (RBC) [Entitic mass] 31.8 pg Normal 27-[address] [facility] Comment on above: Performed By: #### C BCA, CMP, , 2776-04 ####[facility] ([id number])[address] [address] MCHC (RBC) [Mass/Vol] 33.4 g/dL Normal 32-36 [facility] Comment on above: Performed By: #### Bertha BCA, CMP, , 2776-04 ####[facility] ([id number])[address] [address] [place] [address] MCV (RBC) [Entitic vol] 95 fL Normal 80-100 P [facility] Comment on above: Performed By: #### Bertha BCA, CMP, , 2776-04 ####[facility] ([id number])[address] [address] Monocytes (Bld) [#/Vol] 0.9 10*3/uL Normal 0-0.[address] [facility] Comment on above: Performed By: #### C BCA, CMP, , 2776-04 ####[facility] ([id number])[address] [address] Monocytes/100 WBC (Bld) 13.7 % Normal P [facility] Comment on above: Performed By: #### Bertha BCA, CMP, , 2776-04 ####[facility] ([id number])[address] [place] [address] Neutrophils/100 WBC (Bld) 60.5 % Normal [facility] Comment on above: Performed By: #### C BCA, CMP, , 2776-04 ####[facility] ([id number])[address] [address], [place] [address] Platelet mean volume (Bld) [Entitic vol] 6.8 fL Low 7-[address] [facility] Comment on above: Performed By: #### C BCA, CMP, , 2776-04 ####[facility] ([id number])[address] [address] [place] [address] Platelets (Bld) [#/Vol] 405 10*3/uL Normal 150-[address] [facility] Comment on above: Performed By: #### C BCA, CMP, , 2776-04 ####[facility] ([id number])[address] [address] [place] [address] RBC COUNT 2.33 X10E12/L Low 3.80-5.[address] [facility] Comment on above: Performed By: #### C BCA, CMP, , 2776-04 ####[facility] ([id number])[address] [address] [place] [address] WBC (Bld) [#/Vol] 6.8 10*3/uL Normal 4.0-11.0 [facility] Comment on above: Performed By: #### C BCA, CMP, , 2776-04 ####[facility] ([id number])[address] [address] [place] [address] COMPREHENSIVE METABOLIC PANE Kael 06-27-2024 Albumin [Mass/Vol] 4.0 g/dL Normal 3.2-5.3 [facility] Comment on above: Performed By: #### C BCA, CMP, , 2776-04 ####[facility] ([id number])[address], [place] [address] ALP [Catalytic activity/Vol] 60 U/L Normal 39-[address] [facility] Comment on above: Performed By: #### C BCA, CMP, , 2776-04 ####[facility] ([id number])[address], [address], [place] [address] ALT [Catalytic activity/Vol] 6 U/L Normal 0-[address] [facility] Comment on above: Performed By: #### C BCA, CMP, , 2776-04 ####[facility] ([id number])[address], [address], [place] [address] Anion gap [Moles/Vol] 15 mmol/L Normal 5-15 [facility] Comment on above: Performed By: #### C BCA, CMP, , 2776-04 ####[facility] ([id number])[address], [place] [address] AST [Catalytic activity/Vol] 13 U/L Normal 0-[address] [facility] Comment on above: Performed By: #### C BCA, CMP, , 2776-04 ####[facility] ([id number])[address], [address], [place] [address] Bilirubin [Mass/Vol] 0.9 mg/dL Normal 0.3-1.2 [facility] Comment on above: Performed By: #### C BCA, CMP, , 2776-04 ####[facility] ([id number])[address], [address], [place] [address] Calcium [Mass/Vol] 10.1 mg/dL Normal 8.5-10.5 [facility] Comment on above: Performed By: #### C BCA, CMP, , 2777-1 ####[facility] ([id number])[address], [address], [place] [address] Chloride [Moles/Vol] 102 mmol/L Normal 98-109 [facility] Comment on above: Performed By: #### C BCA, CMP, , 2776-04 ####[facility] ([id number])[address], [address], [place] [address] CO2 [Moles/Vol] 22 mmol/L Normal 22-[address] [facility] Comment on above: Performed By: #### C BCA, CMP, , 2776-04 ####[facility] ([id number])[address] [address] [place] [address] Creatinine [Mass/Vol] 2.91 mg/dL High 0.40-1.00 [facility] Comment on above: Result Comment: METH OD TRACEABLE TO IDMS STANDARD Performed By: #### C BCA, CMP, , 2776-04 ####[facility] ([id number])[address] [address] [place] [address] GFR/1.73 sq M.predicted among non-blacks MDRD (S/P/Bld) [Vol rate/Area] 18 mL/min/{1.73_m2} Low >[address] [facility] Comment on above: Result Comment: Repo rted eGFR is based on theCKD-EPI 2020 equation that doesnot use a race coefficient. Performed By: #### C BCA, CMP, , 2776-04 ####[facility] ([id number])[address] [address] [place] [address] Glucose [Mass/Vol] 80 mg/dL Normal 65-99 [facility] Comment on above: Performed By: #### C BCA, CMP, , 2776-04 ####[facility] ([id number])[address], [address] [place] [address] Potassium [Moles/Vol] 4.2 mmol/L Normal 3.5-5.0 [facility] Comment on above: Performed By: #### C EWELINA, CMP, , 2776-04 ####[facility] ([id number])[address], [address] [place] [place] [address] Protein [Mass/Vol] 7.0 g/dL Normal 6.0-8.0 [facility] Comment on above: Performed By: #### C EWELINA, CMP, , 2776-04 ####[facility] ([id number])[address] [place] [place] [address] Sodium [Moles/Vol] 139 mmol/L Normal 134-146 [facility] Comment on above: Performed By: #### C EWELINA, CMP, , 2776-04 ####[facility] ([id number])[address] [address] Urea nitrogen [Mass/Vol] 71 mg/dL High 5-[address] [facility] Comment on above: Performed By: #### C EWELINA, CMP, , 2776-04 ####[facility] ([id number])[address] [address] HBV core IgM IA Qlon 025 HEPATITIS B CORE IGM Non-Reactive Normal NRCT Pr [facility] Comment on above: Result Comment: NEW TEST METHOD Performed By: #### 2 4113-3 ####[facility] ([id number])[address], [address] [address] MAGNESIUMon 06-27-2024 Magnesium [Mass/Vol] 2.5 mg/dL Normal 1.8-2.6 [facility] Comment on above: Performed By: #### C EWELINA, CMP, , 2776-04 ####[facility] ([id number])[address], [address] [place] [address] PHOSPHORUSon 06-27-2024 Phosphate [Mass/Vol] 5.3 mg/dL High 2.4-4.9 [facility] Comment on above: Performed By: #### C BCA, CMP, , 2776-04 ####[facility] ([id number])[address], [place] [address] CBC AND AUTO DIFFon 06-27-19 ABSOLUTE BASOPHIL 0.2 X10E9/L Normal 0.0-0.2 [facility] Comment on above: Performed By: #### C BCA, CMP, , 2776-04 ####[facility] ([id number])[address] [address], [place] [address] ABSOLUTE NEUTROPHIL 3.7 X10E9/L Normal 1.5-6.6 [facility] Comment on above: Performed By: #### C BCA, CMP, , 2776-04 ####[facility] ([id number])[address] [address], [place] [address] Basophils/100 WBC (Bld) 2.7 % Normal [facility] Comment on above: Performed By: #### C BCA, CMP, , 2776-04 ####[facility] ([id number])[address] [address] [address] Eosinophils (Bld) [#/Vol] 0.1 10*3/uL Normal 0.0-0.[address] [facility] Comment on above: Performed By: #### C BCA, CMP, , 2776-04 ####[facility] ([id number])[address] [address] [address] Eosinophils/100 WBC (Bld) 2.3 % Normal [facility] Comment on above: Performed By: #### C BCA, CMP, , 2776-04 ####[facility] ([id number])[address] [address] [address] Erythrocyte distribution width (RBC) [Ratio] 17.4 % High 11.5-15.[address] [facility] Comment on above: Performed By: #### C BCA, [facility], , 2776-04 ####[facility] ([id number])[address] [address] [address] Hematocrit (Bld) [Volume fraction] 22.2 % Low 35-[address] [facility] Comment on above: Performed By: #### C EWELINA, [facility], , 2776-04 ####[facility] ([id number])[address] [address] [address] Hemoglobin (Bld) [Mass/Vol] 7.4 g/dL Low 11.7-15.[address] [facility] Comment on above: Performed By: #### C EWELINA, [facility], , 2776-04 ####[facility] ([id number])[address] [address], [place] [address] Lymphocytes (Bld) [#/Vol] 1.2 10*3/uL Normal 1.0-3.[address] [facility] Comment on above: Performed By: #### C BCA, CMP, , 2776-04 ####[facility] ([id number])[address] [address], [place] [address] Lymphocytes/100 WBC (Bld) 19.4 % Normal [facility] Comment on above: Performed By: #### C BCA, CMP, , 2776-04 ####[facility] ([id number])[address] [address] [place] [address] MCH (RBC) [Entitic mass] 31.8 pg Normal 27-[address] [facility] Comment on above: Performed By: #### C EWELINA [facility], , 2776-04 ####[facility] ([id number])[address], [address], [place] [address] MCHC (RBC) [Mass/Vol] 33.6 g/dL Normal 32-36 [facility] Comment on above: Performed By: #### C EWELINA [facility], , 2776-04 ####[facility] ([id number])[address] [address] MCV (RBC) [Entitic vol] 95 fL Normal 80-100 P [facility] Comment on above: Performed By: #### Bertha THEODORE, [facility], , 2776-04 ####[facility] ([id number])[address], [address] [place] [place] [address] Monocytes (Bld) [#/Vol] 1.0 10*3/uL High 0-0.[address] [facility] Comment on above: Performed By: #### Bertha THEODORE CMP, , 2776-04 ####[facility] ([id number])[address], [address] [place] [address] Monocytes/100 WBC (Bld) 15.5 % Normal P [facility] Comment on above: Performed By: #### Bertha THEODORE, CMP, , 2776-04 ####[facility] ([id number])[address] [address] [place] [address] Neutrophils/100 WBC (Bld) 60.1 % Normal [facility] Comment on above: Performed By: #### Bertha THEODORE, CMP, , 2776-04 ####[facility] ([id number])[address], [address], [place] [address] Platelet mean volume (Bld) [Entitic vol] 6.7 fL Low 7-[address] [facility] Comment on above: Performed By: #### C BCA, CMP, , 2776- ####[facility] ([id number])[address], [address] [place] [address] Platelets (Bld) [#/Vol] 394 10*3/uL Normal 150-[address] [facility] Comment on above: Performed By: #### C BCA, CMP, , 2776- ####[facility] ([id number])[address], [place] [address] RBC COUNT 2.34 X10E12/L Low 3.80-5.[address] [facility] Comment on above: Performed By: #### C BCA, CMP, , 2776- ####[facility] ([id number])[address] [address] [place] [address] WBC (Bld) [#/Vol] 6.2 10*3/uL Normal 4.0-11.0 [facility] Comment on above: Performed By: #### C BCA, CMP, , 2776- ####[facility] ([id number])[address], [address] [place] [address], [place] [address] COMPREHENSIVE METABOLIC PANE Kael 06-26-2024 Albumin [Mass/Vol] 4.4 g/dL Normal 3.2-5.3 [facility] Comment on above: Performed By: #### C BCA, CMP, , 2776- ####[facility] ([id number])[address], [place] [address] ALP [Catalytic activity/Vol] 63 U/L Normal 39-[address] [facility] Comment on above: Performed By: #### C BCA, CMP, 67456-8, 2776-1 ####[facility] ([id number])[address], [address], [place] [address] ALT [Catalytic activity/Vol] 5 U/L Normal 0-[address] [facility] Comment on above: Performed By: #### C BCA, CMP, , 2776-04 ####[facility] ([id number])[address], [address], [place] [address] Anion gap [Moles/Vol] 17 mmol/L High 5-15 [facility] Comment on above: Performed By: #### C BCA, CMP, , 2776-04 ####[facility] ([id number])[address], [address], [place] [address] AST [Catalytic activity/Vol] 12 U/L Normal 0-[address] [facility] Comment on above: Performed By: #### C BCA, CMP, , 2776-04 ####[facility] ([id number])[address], [place] [address] Bilirubin [Mass/Vol] 1.0 mg/dL Normal 0.3-1.2 [facility] Comment on above: Performed By: #### C BCA, CMP, , 2776-04 ####[facility] ([id number])[address], [address], [place] [address] Calcium [Mass/Vol] 10.2 mg/dL Normal 8.5-10.5 [facility] Comment on above: Performed By: #### C BCA, CMP, , 2776-04 ####[facility] ([id number])[address], [address], [place] [address] Chloride [Moles/Vol] 98 mmol/L Normal 98-109 [facility] Comment on above: Performed By: #### C BCA, CMP, , 2776-04 ####[facility] ([id number])[address], [place] [address] CO2 [Moles/Vol] 22 mmol/L Normal 22-[address] [facility] Comment on above: Performed By: #### C RENA THEODORE, , 2776-04 ####[facility] ([id number])[address] [place] [place] [address] Creatinine [Mass/Vol] 2.31 mg/dL High 0.40-1.00 [facility] Comment on above: Result Comment: METH OD TRACEABLE TO IDMS STANDARD Performed By: #### C RENA THEODORE, , 2776-04 ####[facility] ([id number])[address] [address], [place] [address] GFR/1.73 sq M.predicted among non-blacks MDRD (S/P/Bld) [Vol rate/Area] 23 mL/min/{1.73_m2} Low >[address] [facility] Comment on above: Result Comment: Repo rted eGFR is based on theCKD-EPI 2020 equation that doesnot use a race coefficient. Performed By: #### C RENA THEODORE, , 2776-04 ####[facility] ([id number])[address] [address] [address] Glucose [Mass/Vol] 94 mg/dL Normal 65-99 [facility] Comment on above: Performed By: #### C RENA THEODORE, , 2776-04 ####[facility] ([id number])[address] [address] [address] Potassium [Moles/Vol] 3.2 mmol/L Low 3.5-5.0 [facility] Comment on above: Performed By: #### C EWELINA CMP, , 2776-04 ####[facility] ([id number])[address] [address] [place] [place] [address] Protein [Mass/Vol] 7.5 g/dL Normal 6.0-8.0 [facility] Comment on above: Performed By: #### C EWELINA, CMP, , 2776-04 ####[facility] ([id number])[address] [place] [address] Sodium [Moles/Vol] 137 mmol/L Normal 134-146 [facility] Comment on above: Performed By: #### C EWELINA, CMP, , 2776-04 ####[facility] ([id number])[address] [address] Urea nitrogen [Mass/Vol] 63 mg/dL High 5-[address] [facility] Comment on above: Performed By: #### C EWELINA, CMP, , 2776-04 ####[facility] ([id number])[address] [address] FL SWALLOW MOTILITY FUNCTION on 06-26-2024 FL SWALLOW MOTILITY FUNCTION Normal [facility] MAGNESIUMon 06-26-2024 Magnesium [Mass/Vol] 1.9 mg/dL Normal 1.8-2.6 [facility] Comment on above: Performed By: #### C EWELINA, CMP, , 2771 ####[facility] ([id number])[address] [address] Magnesium Ionized ISE (Bld) [Moles/Vol]on 06-26-2024 Magnesium [Moles/Vol] 0.73 mmol/L Normal 0.45-0.74 [facility] Comment on above: Result Comment: NEW REFERENCE RANGE Performed By: #### 7 3572-0 ####[facility] ([id number])[address] [place] [place] [address] PHOSPHORUSon 06-26-2024 Phosphate [Mass/Vol] 4.5 mg/dL Normal 2.4-4.9 [facility] Comment on above: Performed By: #### C BCA, [facility], [address]-2, 2777-1 ####[facility] ([id number])[address] [place] [address] POTASSIUMon 06-26-2024 Potassium [Moles/Vol] 4.3 mmol/L Normal 3.5-5.0 [facility] Comment on above: Performed By: #### 2 823-3 ####[facility] ([id number])[address], [place] [address] Potassium [Moles/Vol] 3.5 mmol/L Normal 3.5-5.0 [facility] Comment on above: Performed By: #### 2 823-3 ####[facility] ([id number])[address] [address] XR CHEST 1 VWon 06-26-2024 XR CHEST 1 VW Normal [facility] ARTERIAL BLOOD GASon 025 ROBERT'S TEST Normal [facility] Comment on above: Performed By: #### A BG ####[facility] ([id number])[address] [place] [address] BASE,DEFICIT 5.0 MMOL/L High 0.0-2.[address] [facility] Comment on above: Performed By: #### A BG ####[facility] ([id number])[address] [place] [address] Body temperature 98.6 [degF] Normal 37.0 [facility] Comment on above: Performed By: #### A BG ####[facility] ([id number])[address] [place] [address] HCO3 (Bld) [Moles/Vol] 19.6 mmol/L Low 22-26 P [facility] Comment on above: Performed By: #### A BG ####[facility] ([id number])[address] [place] [address] INSP. O2 CONC. 40 % Normal [facility] Comment on above: Performed By: #### A BG ####[facility] ([id number])[address] [place] [address] Oxygen (Bld) [Partial pressure] 173 mm[Hg] High 80-[address] [facility] Comment on above: Performed By: #### A BG ####[facility] ([address] [place] [address])[address] [place] [address] Oxygen saturation in Blood 100.0 % Normal >[address] [facility] Comment on above: Performed By: #### A BG ####[facility] ([address] [place] [address])[address] [place] [address] OXYGEN SOURCE [facility] Comment on above: Performed By: #### A BG ####[facility] ([address] [place] [address])[address] [place] [address] PCO2 33.3 [facility] Low 35-[address] [facility] Comment on above: Performed By: #### A BG ####[facility] ([id number])[address] [place] [address] pH (Bld) 7.378 [pH] Normal 7.350-7.[address] [facility] Comment on above: Performed By: #### A BG ####[facility] ([address] [place] [address])[address] [place] [address] SAMPLE SITE [facility] Comment on above: Performed By: #### A BG ####[facility] ([address] [place] [address])[address] [place] [address] SAMPLE TYPE ARTERIAL Normal [facility] Comment on above: Performed By: #### A BG ####[facility] ([id number])[address] [place] [address] CBC AND AUTO DIFFon 06-26-19 25 ABSOLUTE BASOPHIL 0.0 X10E9/L Normal 0.0-0.2 [facility] Comment on above: Performed By: #### C BCA, CMP, , 2776-04 ####[facility] ([id number])[address], [address] [address] ABSOLUTE NEUTROPHIL 5.7 X10E9/L Normal 1.5-6.6 [facility] Comment on above: Performed By: #### C BCA, CMP, , 2776-04 ####[facility] ([id number])[address], [address], [place] [address] Basophils/100 WBC (Bld) 0.7 % Normal [facility] Comment on above: Performed By: #### C BCA, CMP, , 2776-04 ####[facility] ([id number])[address], [address], [place] [address] Eosinophils (Bld) [#/Vol] 0.0 10*3/uL Normal 0.0-0.[address] [facility] Comment on above: Performed By: #### C BCA, CMP, , 2776-04 ####[facility] ([id number])[address] [address] [place] [address] Eosinophils/100 WBC (Bld) 0.0 % Normal [facility] Comment on above: Performed By: #### C BCA, CMP, , 2776-04 ####[facility] ([id number])[address], [address] [place] [address] Erythrocyte distribution width (RBC) [Ratio] 17.3 % High 11.5-15.[address] [facility] Comment on above: Performed By: #### C BCA, CMP, , 2776-04 ####[facility] ([id number])[address], [address] [address] Hematocrit (Bld) [Volume fraction] 25.2 % Low 35-[address] [facility] Comment on above: Performed By: #### C EWELINA CMP, , 2776-04 ####[facility] ([id number])[address], [address], [place] [address] Hemoglobin (Bld) [Mass/Vol] 8.5 g/dL Low 11.7-15.[address] [facility] Comment on above: Performed By: #### C EWELINA, CMP, , 2776-04 ####[facility] ([id number])[address], [address], [place] [address] Lymphocytes (Bld) [#/Vol] 0.8 10*3/uL Low 1.0-3.[address] [facility] Comment on above: Performed By: #### Bertha THEODORE, CMP, , 2776-04 ####[facility] ([id number])[address] [address] [place] [address] Lymphocytes/100 WBC (Bld) 11.1 % Normal [facility] Comment on above: Performed By: #### Bertha BCA, CMP, , 2776-04 ####[facility] ([id number])[address], [address] [place] [address] MCH (RBC) [Entitic mass] 32.0 pg Normal 27-[address] [facility] Comment on above: Performed By: #### C BCA, CMP, , 2776-04 ####[facility] ([id number])[address], [address] [place] [address] MCHC (RBC) [Mass/Vol] 33.7 g/dL Normal 32-36 [facility] Comment on above: Performed By: #### C BCA, CMP, , 2776-04 ####[facility] ([id number])[address], [address] [place] [place] [address] MCV (RBC) [Entitic vol] 95 fL Normal 80-100 P [facility] Comment on above: Performed By: #### C BCA, CMP, , 2776-04 ####[facility] ([id number])[address], [address] [place] [address] Monocytes (Bld) [#/Vol] 0.3 10*3/uL Normal 0-0.[address] [facility] Comment on above: Performed By: #### C BCA, CMP, , 2776-04 ####[facility] ([id number])[address], [address] [place] [address] Monocytes/100 WBC (Bld) 4.8 % Normal [facility] Comment on above: Performed By: #### C BCA, CMP, , 2776-04 ####[facility] ([id number])[address], [address] [address] Neutrophils/100 WBC (Bld) 83.4 % Normal [facility] Comment on above: Performed By: #### C BCA, CMP, , 2776-04 ####[facility] ([id number])[address], [address] [place] [address] Platelet mean volume (Bld) [Entitic vol] 7.2 fL Normal 7-[address] [facility] Comment on above: Performed By: #### C BCA, CMP, , 2776-04 ####[facility] ([id number])[address], [address], [place] [address] Platelets (Bld) [#/Vol] 419 10*3/uL Normal 150-[address] [facility] Comment on above: Performed By: #### C BCA, CMP, , 2777-1 ####[facility] ([id number])[address], [address] [address] RBC COUNT 2.66 X10E12/L Low 3.80-5.[address] [facility] Comment on above: Performed By: #### C BCA, CMP, , 2776-04 ####[facility] ([id number])[address], [address], [place] [address] WBC (Bld) [#/Vol] 6.8 10*3/uL Normal 4.0-11.0 [facility] Comment on above: Performed By: #### C BCA, CMP, , 2776-04 ####[facility] ([id number])[address], [address] [address] COMPREHENSIVE METABOLIC PANE Kael 06-25-2024 Albumin [Mass/Vol] 3.6 g/dL Normal 3.2-5.3 [facility] Comment on above: Performed By: #### C BCA, CMP, , 2776-04 ####[facility] ([id number])[address] [address] [address] ALP [Catalytic activity/Vol] 66 U/L Normal 39-[address] [facility] Comment on above: Performed By: #### C BCA, CMP, , 2776-04 ####[facility] ([id number])[address], [address] [address] ALT [Catalytic activity/Vol] 4 U/L Normal 0-[address] [facility] Comment on above: Performed By: #### C BCA, CMP, , 2776-04 ####[facility] ([id number])[address], [address] [address] Anion gap [Moles/Vol] 18 mmol/L High 5-15 [facility] Comment on above: Performed By: #### C BCA, CMP, , 2776-04 ####[facility] ([id number])[address], [address], [place] [address] AST [Catalytic activity/Vol] 9 U/L Normal 0-[address] [facility] Comment on above: Performed By: #### C BCA, CMP, , 2776-04 ####[facility] ([id number])[address], [address], [place] [address] Bilirubin [Mass/Vol] 0.8 mg/dL Normal 0.3-1.2 [facility] Comment on above: Performed By: #### C BCA, CMP, , 2776-04 ####[facility] ([id number])[address], [address], [place] [address] Calcium [Mass/Vol] 10.4 mg/dL Normal 8.5-10.5 [facility] Comment on above: Performed By: #### C BCA, CMP, , 2776-04 ####[facility] ([id number])[address], [address], [place] [address] Chloride [Moles/Vol] 96 mmol/L Low 98-109 [facility] Comment on above: Performed By: #### C BCA, CMP, , 2776-04 ####[facility] ([id number])[address], [address], [place] [address] CO2 [Moles/Vol] 22 mmol/L Normal 22-[address] [facility] Comment on above: Performed By: #### C BCA, CMP, , 2776-04 ####[facility] ([id number])[address], [address], [place] [address] Creatinine [Mass/Vol] 2.94 mg/dL High 0.40-1.00 [facility] Comment on above: Result Comment: METH OD TRACEABLE TO IDMS STANDARD Performed By: #### C RENA THEODORE, , 2776-04 ####[facility] ([id number])[address] [address] [address] GFR/1.73 sq M.predicted among non-blacks MDRD (S/P/Bld) [Vol rate/Area] 18 mL/min/{1.73_m2} Low >[address] [facility] Comment on above: Result Comment: Repo rted eGFR is based on theCKD-EPI 2020 equation that doesnot use a race coefficient. Performed By: #### C RENA THEODORE, , 2776-04 ####[facility] ([id number])[address] [address], [place] [address] Glucose [Mass/Vol] 125 mg/dL High 65-99 [facility] Comment on above: Performed By: #### C EWELINA CMP, , 2776-04 ####[facility] ([id number])[address] [address] [address] Potassium [Moles/Vol] 3.9 mmol/L Normal 3.5-5.0 [facility] Comment on above: Performed By: #### C EWELINA CMP, , 2776-04 ####[facility] ([id number])[address] [address] [place] [address] Protein [Mass/Vol] 7.0 g/dL Normal 6.0-8.0 [facility] Comment on above: Performed By: #### C EWELINA, CMP, , 2776-04 ####[facility] ([id number])[address] [address] [place] [address] Sodium [Moles/Vol] 136 mmol/L Normal 134-146 [facility] Comment on above: Performed By: #### C BCA, CMP, , 2776-04 ####[facility] ([id number])[address], [address] [place] [address] Urea nitrogen [Mass/Vol] 105 mg/dL High 5-[address] [facility] Comment on above: Performed By: #### C BCA, CMP, , 2777-1 ####[facility] ([id number])[address] [place] [address] MAGNESIUMon 06-25-2024 Magnesium [Mass/Vol] 2.3 mg/dL Normal 1.8-2.6 [facility] Comment on above: Performed By: #### C BCA, CMP, , 2776-04 ####[facility] ([id number])[address] [place] [address] PHOSPHORUSon 06-25-2024 Phosphate [Mass/Vol] 7.0 mg/dL High 2.4-4.9 [facility] Comment on above: Performed By: #### C EWELINA, CMP, , 2777- ####[facility] ([id number])[address] [address] XR CHEST 1 VWon 06-25-2024 XR CHEST 1 VW Normal [facility] ARTERIAL BLOOD GASon 025 ROBERT'S TEST Normal [facility] Comment on above: Performed By: #### A BG ####[facility] ([id number])[address] [place] [address] BASE,DEFICIT 7.0 MMOL/L High 0.0-2.[address] [facility] Comment on above: Performed By: #### A BG ####[facility] ([id number])[address] [place] [address] Body temperature 98.6 [degF] Normal 37.0 [facility] Comment on above: Performed By: #### A BG ####[facility] ([id number])[address] [facility] [place] [address] HCO3 (Bld) [Moles/Vol] 18.8 mmol/L Low 22-26 P [facility] Comment on above: Performed By: #### A BG ####[facility] ([id number])[address] [facility] [place] [address] INSP. O2 CONC. 40 % Normal [facility] Comment on above: Performed By: #### A BG ####[facility] ([id number])[address] [facility] [place] [address] Oxygen (Bld) [Partial pressure] 115 mm[Hg] High 80-[address] [facility] Comment on above: Performed By: #### A BG ####[facility] ([id number])[address] [place] [address] Oxygen saturation in Blood 98.0 % Normal >[address] [facility] Comment on above: Performed By: #### A BG ####[facility] ([id number])[address] [place] [address] OXYGEN SOURCE [facility] Comment on above: Performed By: #### A BG ####[facility] ([id number])[address] [place] [address] PCO2 39.3 MMHG Normal 35-[address] [facility] Comment on above: Performed By: #### A BG ####[facility] ([id number])[address] [facility] [place] [address] pH (Bld) 7.288 [pH] Low 7.350-7.[address] [facility] Comment on above: Performed By: #### A BG ####[facility] ([id number])[address] [facility] [place] [address] SAMPLE SITE [facility] Comment on above: Performed By: #### A BG ####[facility] ([id number])[address] [facility] [place] [address] SAMPLE TYPE ARTERIAL Normal [facility] Comment on above: Performed By: #### A BG ####[facility] ([id number])[address] [facility] [place] [address] ROBERT'S TEST Normal [facility] Comment on above: Performed By: #### A BG ####[facility] ([id number])[address] [facility] [place] [address] BASE,DEFICIT 6.0 MMOL/L High 0.0-2.[address] [facility] Comment on above: Performed By: #### A BG ####[facility] ([id number])[address] [facility] [place] [address] Body temperature 98.6 [degF] Normal 37.0 [facility] Comment on above: Performed By: #### A BG ####[facility] ([id number])[address] [place] [address] HCO3 (Bld) [Moles/Vol] 20.7 mmol/L Low 22-26 P [facility] Comment on above: Performed By: #### A BG ####[facility] ([id number])[address] [facility] [place] [address] INSP. O2 CONC. 40 % Normal [facility] Comment on above: Performed By: #### A BG ####[facility] ([id number])[address] [place] [address] Oxygen (Bld) [Partial pressure] 94 mm[Hg] Normal 80-[address] [facility] Comment on above: Performed By: #### A BG ####[facility] ([id number])[address] [facility] [place] [address] Oxygen saturation in Blood 96.0 % Normal >[address] [facility] Comment on above: Performed By: #### A BG ####[facility] ([id number])[address] [place] [address] OXYGEN SOURCE [facility] Comment on above: Performed By: #### A BG ####[facility] ([id number])[address] [place] [address] PCO2 44.7 MMHG Normal 35-[address] [facility] Comment on above: Performed By: #### A BG ####[facility] ([id number])[address] [place] [address] pH (Bld) 7.275 [pH] Low 7.350-7.[address] [facility] Comment on above: Performed By: #### A BG ####[facility] ([id number])[address] [place] [address] SAMPLE SITE [facility] Comment on above: Performed By: #### A BG ####[facility] ([id number])[address] [place] [address] SAMPLE TYPE ARTERIAL Normal [facility] Comment on above: Performed By: #### A BG ####[facility] ([id number])[address] [place] [address] CBC AND AUTO DIFFon 06-24-20 25 ABSOLUTE BASOPHIL 0.0 X10E9/L Normal 0.0-0.2 [facility] Comment on above: Performed By: #### C BCA, CMP, 22395-1, 2777-1 ####[facility] ([id number])[address] [place] [address] ABSOLUTE NEUTROPHIL 8.3 X10E9/L High 1.5-6.6 [facility] Comment on above: Performed By: #### C BCA, CMP, 60096-7, 2777-1 ####[facility] ([id number])[address] [place] [address] Basophils/100 WBC (Bld) 0.4 % Normal [facility] [place] Comment on above: Performed By: #### C BCA, CMP, , 2776-04 ####[facility] ([id number])[address] [place] [address] Eosinophils (Bld) [#/Vol] 0.0 10*3/uL Normal 0.0-0.[address] [facility] Comment on above: Performed By: #### C BCA, CMP, , 2776-04 ####[facility] ([id number])[address] [place] [address] Eosinophils/100 WBC (Bld) 0.3 % Normal [facility] Comment on above: Performed By: #### Bertha THEODOER, CMP, , 2776-04 ####[facility] ([id number])[address] [address] [address] Erythrocyte distribution width (RBC) [Ratio] 17.9 % High 11.5-15.[address] [facility] Comment on above: Performed By: #### C BCA, CMP, , 2776-04 ####[facility] ([id number])[address] [address] [address] Hematocrit (Bld) [Volume fraction] 25.6 % Low 35-[address] [facility] Comment on above: Performed By: #### C BCA, CMP, , 2776-04 ####[facility] ([id number])[address] [address] [place] [address] Hemoglobin (Bld) [Mass/Vol] 8.4 g/dL Low 11.7-15.[address] [facility] Comment on above: Performed By: #### C BCA, CMP, , 2776-04 ####[facility] ([id number])[address] [address] [place] [address] Lymphocytes (Bld) [#/Vol] 0.4 10*3/uL Low 1.0-3.[address] [facility] Comment on above: Performed By: #### C BCA, CMP, , 2776-04 ####[facility] ([id number])[address] [address] Lymphocytes/100 WBC (Bld) 4.6 % Normal [facility] Comment on above: Performed By: #### C BCA, CMP, , 2776-04 ####[facility] ([id number])[address] [address] MCH (RBC) [Entitic mass] 31.2 pg Normal 27-[address] [facility] Comment on above: Performed By: #### Bertha BCA, CMP, , 2776-04 ####[facility] ([id number])[address] [address] MCHC (RBC) [Mass/Vol] 32.7 g/dL Normal 32-36 [facility] Comment on above: Performed By: #### Bertha BCA, CMP, , 2776-04 ####[facility] ([id number])[address] [address] MCV (RBC) [Entitic vol] 95 fL Normal 80-100 [facility] Comment on above: Performed By: #### C BCA, CMP, , 2776-04 ####[facility] ([id number])[address] [address] Monocytes (Bld) [#/Vol] 0.2 10*3/uL Normal 0-0.[address] [facility] Comment on above: Performed By: #### Bertha BCA, CMP, , 2776-04 ####[facility] ([id number])[address], [place] [address] Monocytes/100 WBC (Bld) 2.2 % Normal P [facility] Comment on above: Performed By: #### C BCA, CMP, , 2776-04 ####[facility] ([id number])[address], [place] [address] Neutrophils/100 WBC (Bld) 92.5 % Normal [facility] Comment on above: Performed By: #### C BCA, CMP, , 2776-04 ####[facility] ([id number])[address], [place] [address] Platelet mean volume (Bld) [Entitic vol] 7.2 fL Normal 7-[address] [facility] Comment on above: Performed By: #### Bertha BCA, CMP, , 2776-04 ####[facility] ([id number])[address] [address] [place] [address] Platelets (Bld) [#/Vol] 329 10*3/uL Normal 150-[address] [facility] Comment on above: Performed By: #### C BCA, CMP, , 2776-04 ####[facility] ([id number])[address] [address], [place] [address] RBC COUNT 2.69 X10E12/L Low 3.80-5.[address] [facility] Comment on above: Performed By: #### C BCA, CMP, , 2776-04 ####[facility] ([id number])[address] [address] [address] WBC (Bld) [#/Vol] 9.0 10*3/uL Normal 4.0-11.0 [facility] Comment on above: Performed By: #### C BCA, CMP, , 2776-04 ####[facility] ([id number])[address], [place] [address] COMPREHENSIVE METABOLIC PANE Kael 06-24-2024 Albumin [Mass/Vol] 3.6 g/dL Normal 3.2-5.3 [facility] Comment on above: Performed By: #### C BCA, CMP, , 2776-04 ####[facility] ([id number])[address], [place] [address] ALP [Catalytic activity/Vol] 65 U/L Normal 39-[address] [facility] Comment on above: Performed By: #### C BCA, CMP, , 2776-04 ####[facility] ([id number])[address], [place] [address] ALT [Catalytic activity/Vol] 6 U/L Normal 0-[address] [facility] Comment on above: Performed By: #### C BCA, CMP, , 2776-04 ####[facility] ([id number])[address], [address], [place] [address] Anion gap [Moles/Vol] 15 mmol/L Normal 5-15 [facility] Comment on above: Performed By: #### C BCA, CMP, , 2776-04 ####[facility] ([id number])[address], [place] [address] AST [Catalytic activity/Vol] 10 U/L Normal 0-[address] [facility] Comment on above: Performed By: #### C BCA, CMP, , 2776-04 ####[facility] ([id number])[address], [place] [address] Bilirubin [Mass/Vol] 0.9 mg/dL Normal 0.3-1.2 [facility] Comment on above: Performed By: #### C BCA, CMP, , 2776-04 ####[facility] ([id number])[address] [address] [address] Calcium [Mass/Vol] 10.0 mg/dL Normal 8.5-10.5 [facility] Comment on above: Performed By: #### C BCA, CMP, , 2776-04 ####[facility] ([id number])[address] [address], [place] [address] Chloride [Moles/Vol] 98 mmol/L Normal 98-109 [facility] Comment on above: Performed By: #### C BCA, CMP, , 2776-04 ####[facility] ([id number])[address] [address] [place] [address] CO2 [Moles/Vol] 20 mmol/L Low 22-[address] [facility] Comment on above: Performed By: #### C BCA, CMP, , 2776-04 ####[facility] ([id number])[address] [place] [address] Creatinine [Mass/Vol] 2.61 mg/dL High 0.40-1.00 [facility] Comment on above: Result Comment: METH OD TRACEABLE TO IDMS STANDARD Performed By: #### C BCA, CMP, , 2776-04 ####[facility] ([id number])[address] [address], [place] [address] GFR/1.73 sq M.predicted among non-blacks MDRD (S/P/Bld) [Vol rate/Area] 20 mL/min/{1.73_m2} Low >[address] [facility] Comment on above: Result Comment: Repo rted eGFR is based on theCKD-EPI 2020 equation that doesnot use a race coefficient. Performed By: #### C BCA, CMP, , 2776-04 ####[facility] ([id number])[address], [address], [place] [address] Glucose [Mass/Vol] 140 mg/dL High 65-99 [facility] Comment on above: Performed By: #### C BCA, CMP, , 2776-04 ####[facility] ([id number])[address], [address], [place] [address] Potassium [Moles/Vol] 4.3 mmol/L Normal 3.5-5.0 [facility] Comment on above: Performed By: #### C BCA, CMP, , 2776-04 ####[facility] ([id number])[address], [address], [place] [address] Protein [Mass/Vol] 6.7 g/dL Normal 6.0-8.0 [facility] Comment on above: Performed By: #### C BCA, CMP, , 2776-04 ####[facility] ([id number])[address], [address], [place] [address] Sodium [Moles/Vol] 133 mmol/L Low 134-146 [facility] Comment on above: Performed By: #### C BCA, CMP, , 2776-04 ####[facility] ([id number])[address], [address], [place] [address] Urea nitrogen [Mass/Vol] 95 mg/dL High 5-[address] [facility] Comment on above: Performed By: #### C BCA, CMP, , 2776-04 ####[facility] ([id number])[address], [address], [place] [address] Calcium.ionized (Bld) [Mass/ Vol]on 06-24-2024 IONIZED CALCIUM 5.3 mg/dL Normal 4.5-5.[address] [facility] Comment on above: Performed By: #### 3 8230-9, 86255-9 ####[facility] ([id number])[address], [address] [place] [address] MAGNESIUMon 06-24-2024 Magnesium [Mass/Vol] 2.2 mg/dL Normal 1.8-2.6 [facility] Comment on above: Performed By: #### C EWELINA CMP, , 2776-04 ####[facility] ([id number])[address], [address] [place] [address] Magnesium Ionized ISE (Bld) [Moles/Vol]on 06-24-2024 Magnesium [Moles/Vol] 0.55 mmol/L Normal 0.45-0.74 [facility] Comment on above: Result Comment: NEW REFERENCE RANGE Performed By: #### 3 8230-9, 27803-1 ####[facility] ([id number])[address], [address] [place] [address] PHOSPHORUSon 06-24-2024 Phosphate [Mass/Vol] 6.2 mg/dL High 2.4-4.9 [facility] Comment on above: Performed By: #### C EWELINA CMP, , 2776-04 ####[facility] ([id number])[address], [address] [place] [address] XR CHEST 1 VWon 06-24-2024 XR CHEST 1 VW Normal [facility] XR CHEST 1 VW Normal [facility] CBC AND AUTO DIFFon 06-24-19 25 ABSOLUTE BASOPHIL 0.1 X10E9/L Normal 0.0-0.2 [facility] Comment on above: Performed By: #### C EWELINA, CMP, , 2776-04 ####[facility] ([id number])[address], [address] [place] [address] ABSOLUTE NEUTROPHIL 7.0 X10E9/L High 1.5-6.6 [facility] Comment on above: Performed By: #### C BCA, CMP, , 2776-04 ####[facility] ([id number])[address], [address], [place] [address] Basophils/100 WBC (Bld) 1.0 % Normal [facility] [place] Comment on above: Performed By: #### C BCA, CMP, , 2776-04 ####[facility] ([id number])[address], [address] [address] Eosinophils (Bld) [#/Vol] 0.3 10*3/uL Normal 0.0-0.[address] [facility] Comment on above: Performed By: #### C BCA, CMP, , 2776-04 ####[facility] ([id number])[address] [address] Eosinophils/100 WBC (Bld) 2.7 % Normal [facility] Comment on above: Performed By: #### C BCA, CMP, , 2776-04 ####[facility] ([id number])[address] [address], [place] [address] Erythrocyte distribution width (RBC) [Ratio] 18.6 % High 11.5-15.[address] [facility] Comment on above: Performed By: #### C BCA, CMP, , 2776-04 ####[facility] ([id number])[address] [address], [place] [address] Hematocrit (Bld) [Volume fraction] 23.7 % Low 35-[address] [facility] Comment on above: Performed By: #### C BCA, CMP, , 2776-04 ####[facility] ([id number])[address] [address], [place] [address] Hemoglobin (Bld) [Mass/Vol] 7.8 g/dL Low 11.7-15.[address] [facility] Comment on above: Performed By: #### C EWELINA, CMP, , 2776-04 ####[facility] ([id number])[address], [address] [address] Lymphocytes (Bld) [#/Vol] 1.2 10*3/uL Normal 1.0-3.[address] [facility] Comment on above: Performed By: #### C BCA, CMP, , 2776-04 ####[facility] ([id number])[address], [address], [place] [address] Lymphocytes/100 WBC (Bld) 12.1 % Normal [facility] Comment on above: Performed By: #### Bertha THEODORE, CMP, , 2776-04 ####[facility] ([id number])[address], [address] [place] [address] MCH (RBC) [Entitic mass] 31.9 pg Normal 27-[address] [facility] Comment on above: Performed By: #### C EWELINA, CMP, , 2776-04 ####[facility] ([id number])[address], [address] [place] [address] MCHC (RBC) [Mass/Vol] 33.1 g/dL Normal 32-36 [facility] Comment on above: Performed By: #### C BCA, CMP, , 2776-04 ####[facility] ([id number])[address], [address] [place] [address] MCV (RBC) [Entitic vol] 96 fL Normal 80-100 [facility] [place] Comment on above: Performed By: #### C BCA, CMP, , 2776-04 ####[facility] ([id number])[address], [address] [place] [address] Monocytes (Bld) [#/Vol] 1.4 10*3/uL High 0-0.[address] [facility] Comment on above: Performed By: #### C BCA, CMP, , 2776-04 ####[facility] ([id number])[address], [address], [place] [address] Monocytes/100 WBC (Bld) 13.9 % Normal P [facility] Comment on above: Performed By: #### C BCA, CMP, , 2776-04 ####[facility] ([id number])[address] [address] Neutrophils/100 WBC (Bld) 70.3 % Normal [facility] Comment on above: Performed By: #### Bertha BCA, CMP, , 2776-04 ####[facility] ([id number])[address], [address], [place] [address] Platelet mean volume (Bld) [Entitic vol] 7.5 fL Normal 7-[address] [facility] Comment on above: Performed By: #### Bertha BCA, CMP, , 2776-04 ####[facility] ([id number])[address] [address] Platelets (Bld) [#/Vol] 244 10*3/uL Normal 150-[address] [facility] Comment on above: Performed By: #### Bertha BCA, CMP, , 2776-04 ####[facility] ([id number])[address], [address], [place] [address] RBC COUNT 2.46 X10E12/L Low 3.80-5.[address] [facility] Comment on above: Performed By: #### Bertha BCA, CMP, , 2776-04 ####[facility] ([id number])[address], [address], [place] [address] WBC (Bld) [#/Vol] 10.0 10*3/uL Normal 4.0-11.0 [facility] Comment on above: Performed By: #### C BCA, CMP, , 2776- ####[facility] ([id number])[address] [address] COMPREHENSIVE METABOLIC PANE Kael 06-23-2024 Albumin [Mass/Vol] 3.6 g/dL Normal 3.2-5.3 [facility] Comment on above: Performed By: #### C BCA, CMP, , 2776- ####[facility] ([id number])[address], [address] [address] ALP [Catalytic activity/Vol] 68 U/L Normal 39-[address] [facility] Comment on above: Performed By: #### C BCA, CMP, , 2776- ####[facility] ([id number])[address], [address] [address] ALT [Catalytic activity/Vol] 4 U/L Normal 0-[address] [facility] Comment on above: Performed By: #### C BCA, CMP, , 2776- ####[facility] ([id number])[address], [address] [address] Anion gap [Moles/Vol] 13 mmol/L Normal 5-15 [facility] Comment on above: Performed By: #### C BCA, CMP, , 2776- ####[facility] ([id number])[address], [address] [address] AST [Catalytic activity/Vol] 12 U/L Normal 0-[address] [facility] Comment on above: Performed By: #### C BCA, CMP, , 2776-1 ####[facility] ([id number])[address], [address], [place] [address] Bilirubin [Mass/Vol] 0.8 mg/dL Normal 0.3-1.2 [facility] Comment on above: Performed By: #### C BCA, CMP, , 2776-04 ####[facility] ([id number])[address], [address], [place] [address] Calcium [Mass/Vol] 9.7 mg/dL Normal 8.5-10.5 [facility] Comment on above: Performed By: #### C BCA, CMP, , 2776-04 ####[facility] ([id number])[address], [address], [place] [address] Chloride [Moles/Vol] 101 mmol/L Normal 98-109 [facility] Comment on above: Performed By: #### C BCA, CMP, , 2776-04 ####[facility] ([id number])[address] [place] [address] CO2 [Moles/Vol] 21 mmol/L Low 22-[address] [facility] Comment on above: Performed By: #### C BCA, CMP, , 2776-04 ####[facility] ([id number])[address] [place] [address] Creatinine [Mass/Vol] 2.08 mg/dL High 0.40-1.00 [facility] Comment on above: Result Comment: METH OD TRACEABLE TO IDMS STANDARD Performed By: #### C BCA, CMP, , 2776-04 ####[facility] ([id number])[address], [place] [address] GFR/1.73 sq M.predicted among non-blacks MDRD (S/P/Bld) [Vol rate/Area] 27 mL/min/{1.73_m2} Low >[address] [facility] Comment on above: Result Comment: Repo rted eGFR is based on theD-EPI 2020 equation that doesnot use a race coefficient. Performed By: #### C EWELINA [facility], , 2776-04 ####[facility] ([id number])[address], [address], [place] [address] Glucose [Mass/Vol] 103 mg/dL High 65-99 [facility] Comment on above: Performed By: #### C EWELINA [facility], , 2776-04 ####[facility] ([id number])[address] [address], [place] [address] Potassium [Moles/Vol] 4.3 mmol/L Normal 3.5-5.0 [facility] Comment on above: Performed By: #### C EWELINA [facility], , 2776-04 ####[facility] ([id number])[address] [address], [place] [address] Protein [Mass/Vol] 6.5 g/dL Normal 6.0-8.0 [facility] Comment on above: Performed By: #### C EWELINA, [facility], , 2776-04 ####[facility] ([id number])[address] [address], [place] [address] Sodium [Moles/Vol] 135 mmol/L Normal 134-146 [facility] Comment on above: Performed By: #### C EWELINA, [facility], , 2776-04 ####[facility] ([id number])[address] [address], [place] [address] Urea nitrogen [Mass/Vol] 73 mg/dL High 5-[address] [facility] Comment on above: Performed By: #### C EWELINA, CMP, , 2776-04 ####[facility] ([id number])[address], [place] [address] HGBon 03-16-2025 Hematocrit (Bld) [Volume fraction] 23.2 % Low 35-[address] [facility] Comment on above: Performed By: #### H H ####[facility] ([id number])[address] [address] Hemoglobin (Bld) [Mass/Vol] 7.7 g/dL Low 11.7-15.[address] [facility] Comment on above: Performed By: #### H H ####[facility] ([id number])[address] [address] [address] Hematocrit (Bld) [Volume fraction] 23.3 % Low 35-[address] [facility] Comment on above: Performed By: #### H H ####[facility] ([id number])[address] [address] [address] Hemoglobin (Bld) [Mass/Vol] 7.6 g/dL Low 11.7-15.[address] [facility] Comment on above: Performed By: #### H H ####[facility] ([id number])[address] [address] [place] [address] MAGNESIUMon 06-23-2024 Magnesium [Mass/Vol] 2.2 mg/dL Normal 1.8-2.6 [facility] Comment on above: Performed By: #### C EWELINA CMP, , 2776-04 ####[facility] ([id number])[address] [address] [place] [address] PHOSPHORUSon 06-23-2024 Phosphate [Mass/Vol] 5.1 mg/dL High 2.4-4.9 [facility] Comment on above: Performed By: #### C EWELINA CMP, , 2776- ####[facility] ([id number])[address] [address] [address] XR CHEST 1 VWon 06-23-2024 XR CHEST 1 VW Normal [facility] ARTERIAL BLOOD GASon 025 ROBERT'S TEST Normal [facility] Comment on above: Performed By: #### A BG ####[facility] ([id number])[address] [place] [address] BASE,DEFICIT 5.0 MMOL/L High 0.0-2.[address] [facility] Comment on above: Performed By: #### A BG ####[facility] ([id number])[address] [place] [address] Body temperature 98.6 [degF] Normal 37.0 [facility] Comment on above: Performed By: #### A BG ####[facility] ([id number])[address] [place] [address] HCO3 (Bld) [Moles/Vol] 21.3 mmol/L Low 22-26 P [facility] Comment on above: Performed By: #### A BG ####[facility] ([id number])[address] [place] [address] INSP. O2 CONC. 40 % [facility] Comment on above: Performed By: #### A BG ####[facility] ([id number])[address] [place] [address] Oxygen (Bld) [Partial pressure] 160 mm[Hg] High 80-[address] [facility] Comment on above: Performed By: #### A BG ####[facility] ([id number])[address] [place] [address] Oxygen saturation in Blood 99.0 % Normal >[address] [facility] Comment on above: Performed By: #### A BG ####[facility] ([id number])[address] [facility] [place] [address] OXYGEN SOURCE Vent Normal [facility] Comment on above: Performed By: #### A BG ####[facility] ([id number])[address] [place] [address] PCO2 44.8 MMHG Normal 35-[address] [facility] Comment on above: Performed By: #### A BG ####[facility] ([id number])[address] [place] [address] pH (Bld) 7.286 [pH] Low 7.350-7.[address] [facility] Comment on above: Performed By: #### A BG ####[facility] ([id number])[address] [place] [address] SAMPLE SITE Breanne Normal [facility] Comment on above: Performed By: #### A BG ####[facility] ([id number])[address] [place] [address] SAMPLE TYPE ARTERIAL Normal [facility] Comment on above: Performed By: #### A BG ####[facility] ([id number])[address] [place] [address] CBC AND AUTO DIFFon 03-15-20 25 ABSOLUTE BASOPHIL 0.1 X10E9/L Normal 0.0-0.2 [facility] Comment on above: Performed By: #### C BCA ####[facility] ([id number])[address] [facility] [place] [address] ABSOLUTE NEUTROPHIL 6.5 X10E9/L Normal 1.5-6.6 [facility] Comment on above: Performed By: #### C BCA ####[facility] ([id number])[address] [facility] [place] [address] Basophils/100 WBC (Bld) 1.3 % Normal P [facility] Comment on above: Performed By: #### C BCA ####[facility] ([id number])[address] [facility], [address] [place] [address] Eosinophils (Bld) [#/Vol] 0.3 10*3/uL Normal 0.0-0.[address] [facility] Comment on above: Performed By: #### C BCA ####[facility] ([id number])[address] [place] [place] [address] Eosinophils/100 WBC (Bld) 2.9 % Normal [facility] Comment on above: Performed By: #### C BCA ####[facility] ([id number])[address] [address], [place] [address] Erythrocyte distribution width (RBC) [Ratio] 18.8 % High 11.5-15.[address] [facility] Comment on above: Performed By: #### C BCA ####[facility] ([id number])[address] [address], [place] [address] Hematocrit (Bld) [Volume fraction] 24.8 % Low 35-[address] [facility] Comment on above: Performed By: #### C BCA ####[facility] ([id number])[address] [address] [address] Hemoglobin (Bld) [Mass/Vol] 8.2 g/dL Low 11.7-15.[address] [facility] Comment on above: Performed By: #### C BCA ####[facility] ([id number])[address] [address] [address] Lymphocytes (Bld) [#/Vol] 1.5 10*3/uL Normal 1.0-3.[address] [facility] Comment on above: Performed By: #### C BCA ####[facility] ([id number])[address] [address] [address] Lymphocytes/100 WBC (Bld) 16.4 % Normal [facility] Comment on above: Performed By: #### C BCA ####[facility] ([id number])[address] [place] [address] MCH (RBC) [Entitic mass] 31.9 pg Normal 27-[address] [facility] Comment on above: Performed By: #### C BCA ####[facility] ([id number])[address] [place] [address] MCHC (RBC) [Mass/Vol] 33.0 g/dL Normal 32-36 [facility] Comment on above: Performed By: #### C BCA ####[facility] ([id number])[address] [place] [address] MCV (RBC) [Entitic vol] 97 fL Normal 80-100 [facility] [place] Comment on above: Performed By: #### C BCA ####[facility] ([id number])[address] [address] Monocytes (Bld) [#/Vol] 1.0 10*3/uL High 0-0.[address] [facility] Comment on above: Performed By: #### C BCA ####[facility] ([id number])[address] [place] [place] [address] Monocytes/100 WBC (Bld) 10.3 % Normal [facility] Comment on above: Performed By: #### C BCA ####[facility] ([id number])[address] [place] [place] [address] Neutrophils/100 WBC (Bld) 69.1 % Normal [facility] Comment on above: Performed By: #### C BCA ####[facility] ([id number])[address] [place] [place] [address] Platelet mean volume (Bld) [Entitic vol] 7.4 fL Normal 7-[address] [facility] Comment on above: Performed By: #### C BCA ####[facility] ([id number])[address] [address] [address] Platelets (Bld) [#/Vol] 164 10*3/uL Normal 150-[address] [facility] Comment on above: Performed By: #### C BCA ####[facility] ([id number])[address] [address] RBC COUNT 2.57 X10E12/L Low 3.80-5.[address] [facility] Comment on above: Performed By: #### C BCA ####[facility] ([id number])[address] [address], [place] [address] WBC (Bld) [#/Vol] 9.4 10*3/uL Normal 4.0-11.0 [facility] Comment on above: Performed By: #### C BCA ####[facility] ([id number])[address] [place] [place] [address] COMPREHENSIVE METABOLIC PANE Kael 06-22-2024 Albumin [Mass/Vol] 3.8 g/dL Normal 3.2-5.3 [facility] Comment on above: Performed By: #### C MARY, , 2776- ####[facility] ([id number])[address] [address] [address] ALP [Catalytic activity/Vol] 76 U/L Normal 39-[address] [facility] Comment on above: Performed By: #### C MARY, , 2776- ####[facility] ([id number])[address] [address] [place] [address] ALT [Catalytic activity/Vol] 4 U/L Normal 0-[address] [facility] Comment on above: Performed By: #### C MARY, , 2776- ####[facility] ([id number])[address], [place] [address] Anion gap [Moles/Vol] 13 mmol/L Normal 5-15 [facility] Comment on above: Performed By: #### C MARY, , [id number] ####[facility] ([id number])[address], [place] [address] AST [Catalytic activity/Vol] 17 U/L Normal 0-[address] [facility] Comment on above: Performed By: #### Bertha HERNANDEZ, , 2776-04 ####[facility] ([id number])[address], [address], [place] [address] Bilirubin [Mass/Vol] 0.9 mg/dL Normal 0.3-1.2 [facility] Comment on above: Performed By: #### Bertha HERNANDEZ, , 2776-04 ####[facility] ([id number])[address], [address], [place] [address] Calcium [Mass/Vol] 9.4 mg/dL Normal 8.5-10.5 [facility] Comment on above: Performed By: #### Bertha HERNANDEZ, , 2776-04 ####[facility] ([id number])[address], [address], [place] [address] Chloride [Moles/Vol] 101 mmol/L Normal 98-109 [facility] Comment on above: Performed By: #### Bertha HERNANDEZ, , 2776-04 ####[facility] ([id number])[address], [address], [place] [address] CO2 [Moles/Vol] 21 mmol/L Low 22-[address] [facility] Comment on above: Performed By: #### Bertha HERNANDEZ, , 2776-04 ####[facility] ([id number])[address], [address], [place] [address] Creatinine [Mass/Vol] 1.48 mg/dL High 0.40-1.00 [facility] Comment on above: Result Comment: METH OD TRACEABLE TO IDMS STANDARD Performed By: #### C MARY, , 2776-04 ####[facility] ([id number])[address], [address] [place] [address] GFR/1.73 sq M.predicted among non-blacks MDRD (S/P/Bld) [Vol rate/Area] 40 mL/min/{1.73_m2} Low >[address] [facility] Comment on above: Result Comment: Repo rted eGFR is based on theCKD-EPI 2020 equation that doesnot use a race coefficient. Performed By: #### Bertha HERNANDEZ, , 2776-04 ####[facility] ([id number])[address], [address] [address] Glucose [Mass/Vol] 127 mg/dL High 65-99 [facility] Comment on above: Performed By: #### Bertha HERNANDEZ, , 2776-04 ####[facility] ([id number])[address] [address] [place] [address] Potassium [Moles/Vol] 3.8 mmol/L Normal 3.5-5.0 [facility] Comment on above: Performed By: #### Bertha HERNANDEZ , 2776-04 ####[facility] ([id number])[address] [address] [place] [address] Protein [Mass/Vol] 6.5 g/dL Normal 6.0-8.0 [facility] Comment on above: Performed By: #### Bertha HERNANDEZ, , 2776-04 ####[facility] ([id number])[address], [address], [place] [address] Sodium [Moles/Vol] 135 mmol/L Normal 134-146 [facility] Comment on above: Performed By: #### Bertha HERNANDEZ, , 7- ####[facility] ([id number])[address], [address], [place] [address] Urea nitrogen [Mass/Vol] 40 mg/dL High 5-[address] [facility] Comment on above: Performed By: #### C , 71076-7, 2777-1 ####[facility] ([id number])[address], [place] [address] HGBon 06-22-2024 Hematocrit (Bld) [Volume fraction] 24.4 % Low 35-[address] [facility] Comment on above: Performed By: #### H H ####[facility] ([id number])[address], [place] [address] Hemoglobin (Bld) [Mass/Vol] 8.1 g/dL Low 11.7-15.[address] [facility] Comment on above: Performed By: #### H H ####[facility] ([id number])[address], [address], [place] [address] Hematocrit (Bld) [Volume fraction] 23.6 % Low 35-[address] [facility] Comment on above: Performed By: #### H H ####[facility] ([id number])[address], [address], [place] [address] Hemoglobin (Bld) [Mass/Vol] 7.8 g/dL Low 11.7-15.[address] [facility] Comment on above: Performed By: #### H H ####[facility] ([id number])[address], [address], [place] [address] Hematocrit (Bld) [Volume fraction] 20.6 % Low 35-[address] [facility] Comment on above: Performed By: #### H H ####[facility] ([id number])[address], [address], [place] [address] Hemoglobin (Bld) [Mass/Vol] 6.7 g/dL Critically low 11.7-15.[address] [facility] Comment on above: Performed By: #### H H ####[facility] ([id number])[address] [place] [address] MAGNESIUMon 06-22-2024 Magnesium [Mass/Vol] 1.8 mg/dL Normal 1.8-2.6 [facility] Comment on above: Performed By: #### C MARY, 88816-5, 2777-1 ####[facility] ([id number])[address], [address], [place] [address] Magnesium Ionized ISE (Bld) [Moles/Vol]on 06-22-2024 Magnesium [Moles/Vol] 0.64 mmol/L Normal 0.45-0.74 [facility] Comment on above: Result Comment: NEW REFERENCE RANGE Performed By: #### 7 3572-0 ####[facility] ([id number])[address], [address] [address] PHOSPHORUSon 06-22-2024 Phosphate [Mass/Vol] 3.4 mg/dL Normal 2.4-4.9 [facility] Comment on above: Performed By: #### C MARY, 66610-1, 2777-1 ####[facility] ([id number])[address], [address] [address] POTASSIUMon 06-22-2024 Potassium [Moles/Vol] 4.0 mmol/L Normal 3.5-5.0 [facility] Comment on above: Performed By: #### 2 823-3 ####[facility] ([id number])[address] [place] [address] XR CHEST 1 VWon 06-22-2024 XR CHEST 1 VW Normal [facility] ARTERIAL BLOOD GASon 025 ROBERT'S TEST Normal [facility] Comment on above: Performed By: #### A BG ####[facility] ([id number])[address] [place] [address] BASE,DEFICIT 10.0 MMOL/L High 0.0-2.[address] [facility] Comment on above: Performed By: #### A BG ####[facility] ([id number])[address] [place] [address] Body temperature 98.6 [degF] Normal 37.0 [facility] Comment on above: Performed By: #### A BG ####[facility] ([id number])[address] [place] [address] HCO3 (Bld) [Moles/Vol] 16.6 mmol/L Low 22-26 P [facility] Comment on above: Performed By: #### A BG ####[facility] ([id number])[address] [place] [address] INSP. O2 CONC. 40 % Normal [facility] Comment on above: Performed By: #### A BG ####[facility] ([id number])[address] [place] [address] Oxygen (Bld) [Partial pressure] 165 mm[Hg] High 80-[address] [facility] Comment on above: Performed By: #### A BG ####[facility] ([id number])[address] [place] [address] Oxygen saturation in Blood 99.0 % Normal >[address] [facility] Comment on above: Performed By: #### A BG ####[facility] ([id number])[address] [place] [address] OXYGEN SOURCE Vent Normal [facility] Comment on above: Performed By: #### A BG ####[facility] ([id number])[address] [place] [address] PCO2 36.6 MMHG Normal 35-[address] [facility] Comment on above: Performed By: #### A BG ####[facility] ([id number])[address] [place] [address] pH (Bld) 7.265 [pH] Low 7.350-7.[address] [facility] Comment on above: Performed By: #### A BG ####[facility] ([id number])[address] [place] [address] SAMPLE SITE Breanne Normal [facility] Comment on above: Performed By: #### A BG ####[facility] ([id number])[address] [place] [address] SAMPLE TYPE ARTERIAL Normal [facility] Comment on above: Performed By: #### A BG ####[facility] ([id number])[address] [place] [address] CBC AND AUTO DIFFon 06-22-19 25 ABSOLUTE BASOPHIL 0.1 X10E9/L Normal 0.0-0.2 [facility] Comment on above: Performed By: #### C EWELINA, CMP, , 2776-04 ####[facility] ([id number])[address], [place] [address] ABSOLUTE NEUTROPHIL 5.1 X10E9/L Normal 1.5-6.6 [facility] Comment on above: Performed By: #### C BCA, CMP, , 2776- ####[facility] ([id number])[address], [place] [address] Basophils/100 WBC (Bld) 1.0 % Normal P [facility] Comment on above: Performed By: #### C BCA, CMP, , 2776-04 ####[facility] ([id number])[address], [place] [address] Eosinophils (Bld) [#/Vol] 0.2 10*3/uL Normal 0.0-0.[address] [facility] Comment on above: Performed By: #### C EWELINA CMP, , 2776-04 ####[facility] ([id number])[address], [address] [place] [address] Eosinophils/100 WBC (Bld) 2.7 % Normal [facility] Comment on above: Performed By: #### C BCA, CMP, , 2776-04 ####[facility] ([id number])[address] [address] Erythrocyte distribution width (RBC) [Ratio] 17.5 % High 11.5-15.[address] [facility] Comment on above: Performed By: #### C BCA, CMP, , 2776-04 ####[facility] ([id number])[address] [address] [place] [address] Hematocrit (Bld) [Volume fraction] 21.0 % Low 35-[address] [facility] Comment on above: Performed By: #### C BCA, CMP, , 2776-04 ####[facility] ([id number])[address] [address] [place] [address] Lymphocytes (Bld) [#/Vol] 1.0 10*3/uL Normal 1.0-3.[address] [facility] Comment on above: Performed By: #### C BCA, CMP, , 2776-04 ####[facility] ([id number])[address] [address] Lymphocytes/100 WBC (Bld) 14.1 % Normal [facility] Comment on above: Performed By: #### C BCA, CMP, , 2776-04 ####[facility] ([id number])[address], [address], [place] [address] MCH (RBC) [Entitic mass] 32.8 pg Normal 27-[address] [facility] Comment on above: Performed By: #### C BCA, CMP, , 2776-04 ####[facility] ([id number])[address] [address], [place] [address] MCHC (RBC) [Mass/Vol] 33.1 g/dL Normal 32-36 [facility] Comment on above: Performed By: #### C BCA, CMP, , 2776-04 ####[facility] ([id number])[address] [address] [place] [address] MCV (RBC) [Entitic vol] 99 fL Normal 80-100 [facility] [place] Comment on above: Performed By: #### C BCA, CMP, , 2776-04 ####[facility] ([id number])[address] [address] [place] [address] Monocytes (Bld) [#/Vol] 0.7 10*3/uL Normal 0-0.[address] [facility] Comment on above: Performed By: #### C BCA, CMP, , 2776-04 ####[facility] ([id number])[address] [address] Monocytes/100 WBC (Bld) 10.5 % Normal [facility] [place] Comment on above: Performed By: #### C BCA, CMP, , 2776-04 ####[facility] ([id number])[address] [address] Neutrophils/100 WBC (Bld) 71.7 % Normal [facility] Comment on above: Performed By: #### C BCA, CMP, , 2776-04 ####[facility] ([id number])[address] [address] Platelet mean volume (Bld) [Entitic vol] 7.9 fL Normal 7-[address] [facility] Comment on above: Performed By: #### C BCA, CMP, , 2776-04 ####[facility] ([id number])[address], [place] [address] Platelets (Bld) [#/Vol] 78 10*3/uL Low 150-450 P [facility] Comment on above: Performed By: #### C BCA, CMP, , 2776-04 ####[facility] ([id number])[address], [address] [place] [address] RBC COUNT 2.12 X10E12/L Low 3.80-5.[address] [facility] Comment on above: Performed By: #### C BCA, CMP, , 2776-04 ####[facility] ([id number])[address], [address] [place] [address] WBC (Bld) [#/Vol] 7.1 10*3/uL Normal 4.0-11.0 [facility] Comment on above: Performed By: #### C BCA, CMP, , 2776-04 ####[facility] ([id number])[address], [address] [place] [address] COMPREHENSIVE METABOLIC PANE Kael 06-21-2024 Albumin [Mass/Vol] 3.7 g/dL Normal 3.2-5.3 [facility] Comment on above: Performed By: #### C BCA, CMP, , 2776-04 ####[facility] ([id number])[address], [address] [place] [address] ALP [Catalytic activity/Vol] 66 U/L Normal 39-[address] [facility] Comment on above: Performed By: #### C BCA, CMP, , 2776-04 ####[facility] ([id number])[address], [address], [place] [address] ALT [Catalytic activity/Vol] 3 U/L Normal 0-[address] [facility] Comment on above: Performed By: #### C BCA, CMP, , 2776-04 ####[facility] ([id number])[address], [address], [place] [address] Anion gap [Moles/Vol] 15 mmol/L Normal 5-15 [facility] Comment on above: Performed By: #### C BCA, CMP, , 2776-04 ####[facility] ([id number])[address], [address], [place] [address] AST [Catalytic activity/Vol] 11 U/L Normal 0-[address] [facility] Comment on above: Performed By: #### C BCA, CMP, , 2776-04 ####[facility] ([id number])[address], [address], [place] [address] Bilirubin [Mass/Vol] 0.7 mg/dL Normal 0.3-1.2 [facility] Comment on above: Performed By: #### C BCA, CMP, , 2776-04 ####[facility] ([id number])[address], [address], [place] [address] Calcium [Mass/Vol] 9.4 mg/dL Normal 8.5-10.5 [facility] Comment on above: Performed By: #### C BCA, CMP, , 2776-04 ####[facility] ([id number])[address], [address], [place] [address] Chloride [Moles/Vol] 107 mmol/L Normal 98-109 [facility] Comment on above: Performed By: #### C BCA, CMP, , 2776-04 ####[facility] ([id number])[address] [address] [address] CO2 [Moles/Vol] 18 mmol/L Low 22-[address] [facility] Comment on above: Performed By: #### C RENA THEODORE, , 2776-04 ####[facility] ([id number])[address] [address] [place] [place] [address] Creatinine [Mass/Vol] 2.04 mg/dL High 0.40-1.00 [facility] Comment on above: Result Comment: METH OD TRACEABLE TO IDMS STANDARD Performed By: #### C EWELINA [facility], , 2776-04 ####[facility] ([id number])[address] [address] [address] GFR/1.73 sq M.predicted among non-blacks MDRD (S/P/Bld) [Vol rate/Area] 27 mL/min/{1.73_m2} Low >[address] [facility] Comment on above: Result Comment: Repo rted eGFR is based on theCKD-EPI 2020 equation that doesnot use a race coefficient. Performed By: #### C EWELINA [facility], , 2776-04 ####[facility] ([id number])[address] [address] [address] Glucose [Mass/Vol] 98 mg/dL Normal 65-99 [facility] Comment on above: Performed By: #### C RENA THEODORE, , 2776-04 ####[facility] ([id number])[address] [address] [place] [address] Potassium [Moles/Vol] 3.8 mmol/L Normal 3.5-5.0 [facility] Comment on above: Performed By: #### C RENA THEODORE, , 2776-04 ####[facility] ([id number])[address], [place] [address] Protein [Mass/Vol] 6.1 g/dL Normal 6.0-8.0 [facility] Comment on above: Performed By: #### C BCA, CMP, 19982-6, 2776-1 ####[facility] ([id number])[address], [place] [address] Sodium [Moles/Vol] 140 mmol/L Normal 134-146 [facility] Comment on above: Performed By: #### C BCA, CMP, , 2776- ####[facility] ([id number])[address], [place] [address] Urea nitrogen [Mass/Vol] 55 mg/dL High 5-[address] [facility] Comment on above: Performed By: #### C BCA, CMP, , 2776-04 ####[facility] ([id number])[address], [place] [address] HGBon 06-21-2024 Hematocrit (Bld) [Volume fraction] 21.9 % Low 35-[address] [facility] Comment on above: Performed By: #### H H ####[facility] ([id number])[address], [place] [address] Hemoglobin (Bld) [Mass/Vol] 7.1 g/dL Low 11.7-15.[address] [facility] Comment on above: Performed By: #### H H ####[facility] ([id number])[address], [place] [address] Hematocrit (Bld) [Volume fraction] 21.6 % Low 35-[address] [facility] Comment on above: Performed By: #### H H ####[facility] ([id number])[address], [place] [address] Hemoglobin (Bld) [Mass/Vol] 7.0 g/dL Low 11.7-15.[address] [facility] Comment on above: Performed By: #### H H ####[facility] ([id number])[address] [place] [address] Performed By: #### C EWELINA [facility], , 1 ####[facility] ([id number])[address] [place] [address] MAGNESIUMon 06-21-2024 Magnesium [Mass/Vol] 2.0 mg/dL Normal 1.8-2.6 [facility] Comment on above: Performed By: #### C EWELINA, [facility], , 2776-04 ####[facility] ([id number])[address] [place] [address] PHOSPHORUSon 06-21-2024 Phosphate [Mass/Vol] 5.5 mg/dL High 2.4-4.9 [facility] Comment on above: Performed By: #### C EWELINA, [facility], , 2776-04 ####[facility] ([id number])[address] [place] [address] POTASSIUMon 06-21-2024 Potassium [Moles/Vol] 4.0 mmol/L Normal 3.5-5.0 [facility] Comment on above: Performed By: #### 2 823-3 ####[facility] ([id number])[address] [place] [address] XR CHEST 1 VWon 06-21-2024 XR CHEST 1 VW Normal [facility] ARTERIAL BLOOD GASon 025 ROBERT'S TEST Pass Normal [facility] Comment on above: Performed By: #### A BG ####[facility] ([id number])[address] [place] [address] BASE,DEFICIT 6.0 MMOL/L High 0.0-2.[address] [facility] Comment on above: Performed By: #### A BG ####[facility] ([id number])[address] [place] [address] Body temperature 98.6 [degF] Normal 37.0 [facility] Comment on above: Performed By: #### A BG ####[facility] ([id number])[address] [place] [address] HCO3 (Bld) [Moles/Vol] 20.1 mmol/L Low 22-26 P [facility] Comment on above: Performed By: #### A BG ####[facility] ([id number])2[address] [facility] [place] [address] INSP. O2 CONC. 40 % Normal [facility] Comment on above: Performed By: #### A BG ####[facility] ([id number])[address] [place] [address] Oxygen (Bld) [Partial pressure] 101 mm[Hg] High 80-[address] [facility] Comment on above: Performed By: #### A BG ####[facility] ([id number])[address] [place] [address] Oxygen saturation in Blood 97.0 % Normal >[address] [facility] Comment on above: Performed By: #### A BG ####[facility] ([id number])[address] [place] [address] OXYGEN SOURCE Vent Normal [facility] Comment on above: Performed By: #### A BG ####[facility] ([id number])[address] [place] [address] PCO2 43.3 [facility] Normal 35-[address] [facility] Comment on above: Performed By: #### A BG ####[facility] ([id number])[address] [place] [address] pH (Bld) 7.274 [pH] Low 7.350-7.[address] [facility] Comment on above: Performed By: #### A BG ####[facility] ([id number])2141 [place] [address] SAMPLE SITE Breanne Normal [facility] Comment on above: Performed By: #### A BG ####[facility] ([id number])2141 [place] [address] SAMPLE TYPE ARTERIAL Normal [facility] Comment on above: Performed By: #### A BG ####[facility] ([id number])2141 [place] [address] CBC AND AUTO DIFFon 06-21-19 25 ABSOLUTE BASOPHIL 0.1 X10E9/L Normal 0.0-0.2 [facility] Comment on above: Performed By: #### C BCA, CMP, , 2776-04 ####[facility] ([id number])[address], [address] [place] [address] ABSOLUTE NEUTROPHIL 3.8 X10E9/L Normal 1.5-6.6 [facility] Comment on above: Performed By: #### C BCA, CMP, , 2776-04 ####[facility] ([id number])[address], [address] [place] [address] Basophils/100 WBC (Bld) 1.0 % Normal P [facility] Comment on above: Performed By: #### C BCA, CMP, , 2776-04 ####[facility] ([id number])[address], [address] [place] [address] Eosinophils (Bld) [#/Vol] 0.3 10*3/uL Normal 0.0-0.[address] [facility] Comment on above: Performed By: #### C BCA, CMP, , 2776-04 ####[facility] ([id number])[address], [place] [address] Eosinophils/100 WBC (Bld) 4.8 % Normal [facility] Comment on above: Performed By: #### C RENA THEODORE, , 2776-04 ####[facility] ([id number])[address], [address], [place] [address] Erythrocyte distribution width (RBC) [Ratio] 17.9 % High 11.5-15.[address] [facility] Comment on above: Performed By: #### C RENA HTEODORE, , 2776-04 ####[facility] ([id number])[address], [address], [place] [address] Hematocrit (Bld) [Volume fraction] 22.6 % Low 35-[address] [facility] Comment on above: Performed By: #### C EWELINA CMP, , 2776-04 ####[facility] ([id number])[address] [address] [address] Hemoglobin (Bld) [Mass/Vol] 7.2 g/dL Low 11.7-15.[address] [facility] Comment on above: Performed By: #### C EWELINA CMP, , 2776-04 ####[facility] ([id number])[address] [address], [place] [address] Lymphocytes (Bld) [#/Vol] 1.0 10*3/uL Normal 1.0-3.[address] [facility] Comment on above: Performed By: #### C EWELINA CMP, , 2776-04 ####[facility] ([id number])[address] [address] [address] Lymphocytes/100 WBC (Bld) 17.1 % Normal [facility] Comment on above: Performed By: #### C BCA, CMP, , 2776-04 ####[facility] ([id number])[address], [address] [place] [place] [address] MCH (RBC) [Entitic mass] 31.8 pg Normal 27-[address] [facility] Comment on above: Performed By: #### C BCA, CMP, , 2776-04 ####[facility] ([id number])[address], [address] [place] [place] [address] MCHC (RBC) [Mass/Vol] 31.8 g/dL Low 32-36 [facility] Comment on above: Performed By: #### C BCA, CMP, , 2776-04 ####[facility] ([id number])[address], [address] [place] [address] MCV (RBC) [Entitic vol] 100 fL Normal 80-100 P [facility] Comment on above: Performed By: #### C BCA, CMP, , 2776-04 ####[facility] ([id number])[address], [address] [place] [address] Monocytes (Bld) [#/Vol] 0.7 10*3/uL Normal 0-0.[address] [facility] Comment on above: Performed By: #### C BCA, CMP, , 2776-04 ####[facility] ([id number])[address], [address] [place] [place] [address] Monocytes/100 WBC (Bld) 11.9 % Normal P [facility] Comment on above: Performed By: #### C BCA, CMP, , 2776-04 ####[facility] ([id number])[address], [address] [place] [place] [address] Neutrophils/100 WBC (Bld) 65.2 % Normal [facility] Comment on above: Performed By: #### C BCA, CMP, , 2776-04 ####[facility] ([id number])[address] [address] [address] Platelet mean volume (Bld) [Entitic vol] 7.6 fL Normal 7-[address] [facility] Comment on above: Performed By: #### C BCA, CMP, , 2776-04 ####[facility] ([id number])[address] [address] [place] [address] Platelets (Bld) [#/Vol] 58 10*3/uL Low 150-450 P [facility] Comment on above: Performed By: #### C BCA, CMP, , 2776-04 ####[facility] ([id number])[address] [address], [place] [address] RBC COUNT 2.26 X10E12/L Low 3.80-5.[address] [facility] Comment on above: Performed By: #### C BCA, CMP, , 2776-04 ####[facility] ([id number])[address] [address] WBC (Bld) [#/Vol] 5.8 10*3/uL Normal 4.0-11.0 [facility] Comment on above: Performed By: #### C BCA, CMP, , 2776-04 ####[facility] ([id number])[address] [address] [address] COMPREHENSIVE METABOLIC PANE Kael 06-20-2024 Albumin [Mass/Vol] 3.6 g/dL Normal 3.2-5.3 [facility] Comment on above: Performed By: #### C BCA, CMP, , 2776-04 ####[facility] ([id number])[address] [address] [address] ALP [Catalytic activity/Vol] 61 U/L Normal 39-[address] [facility] Comment on above: Performed By: #### C BCA, CMP, , 2776-04 ####[facility] ([id number])[address], [address], [place] [address] ALT [Catalytic activity/Vol] U/L Normal 0-[address] [facility] Comment on above: Performed By: #### C BCA, CMP, , 2776-04 ####[facility] ([id number])[address], [address], [place] [address] Anion gap [Moles/Vol] 10 mmol/L Normal 5-15 [facility] Comment on above: Performed By: #### C BCA, CMP, , 2776-04 ####[facility] ([id number])[address], [address], [place] [address] AST [Catalytic activity/Vol] 11 U/L Normal 0-[address] [facility] Comment on above: Performed By: #### C BCA, CMP, , 2776-04 ####[facility] ([id number])[address], [address], [place] [address] Bilirubin [Mass/Vol] 0.8 mg/dL Normal 0.3-1.2 [facility] Comment on above: Performed By: #### C BCA, CMP, , 2776-04 ####[facility] ([id number])[address], [address], [place] [address] Calcium [Mass/Vol] 9.0 mg/dL Normal 8.5-10.5 [facility] Comment on above: Performed By: #### C BCA, CMP, , 2776-04 ####[facility] ([id number])[address], [address], [place] [address] Chloride [Moles/Vol] 108 mmol/L Normal 98-109 [facility] Comment on above: Performed By: #### C RENA THEODORE, , 2776-04 ####[facility] ([id number])[address], [address], [place] [address] CO2 [Moles/Vol] 21 mmol/L Low 22-[address] [facility] Comment on above: Performed By: #### C RENA THEODORE, , 2776-04 ####[facility] ([id number])[address] [address] [place] [address] Creatinine [Mass/Vol] 1.44 mg/dL High 0.40-1.00 [facility] Comment on above: Result Comment: METH OD TRACEABLE TO IDMS STANDARD Performed By: #### C RENA THEODORE, , 2776-04 ####[facility] ([id number])[address] [address], [place] [address] GFR/1.73 sq M.predicted among non-blacks MDRD (S/P/Bld) [Vol rate/Area] 41 mL/min/{1.73_m2} Low >[address] [facility] Comment on above: Result Comment: Repo rted eGFR is based on theCKD-EPI 2020 equation that doesnot use a race coefficient. Performed By: #### C RENA THEODORE, , 2776-04 ####[facility] ([id number])[address] [address] [place] [address] Glucose [Mass/Vol] 82 mg/dL Normal 65-99 [facility] Comment on above: Performed By: #### C RENA THEODORE, , 2776-04 ####[facility] ([id number])[address], [address] [address] Potassium [Moles/Vol] 3.7 mmol/L Normal 3.5-5.0 [facility] Comment on above: Performed By: #### C EWELINA CMP, , 2776-04 ####[facility] ([id number])[address], [address] [address] Protein [Mass/Vol] 5.8 g/dL Low 6.0-8.0 [facility] Comment on above: Performed By: #### C BCA, CMP, , 2776- ####[facility] ([id number])[address], [address] [address] Sodium [Moles/Vol] 139 mmol/L Normal 134-146 [facility] Comment on above: Performed By: #### C BCA, CMP, , 2776-04 ####[facility] ([id number])[address], [address], [place] [address] Urea nitrogen [Mass/Vol] 30 mg/dL High 5-[address] [facility] Comment on above: Performed By: #### C BCA, CMP, , 2776-04 ####[facility] ([id number])[address] [address] HGBon 06-20-2024 Hematocrit (Bld) [Volume fraction] 21.9 % Low 35-[address] [facility] Comment on above: Performed By: #### H H ####[facility] ([id number])[address] [address] Hemoglobin (Bld) [Mass/Vol] 7.2 g/dL Low 11.7-15.[address] [facility] Comment on above: Performed By: #### H H ####[facility] ([id number])[address], [address] [place] [address], [place] [address] Hematocrit (Bld) [Volume fraction] 23.0 % Low 35-[address] [facility] Comment on above: Performed By: #### H H ####[facility] ([id number])[address], [place] [address] Hemoglobin (Bld) [Mass/Vol] 7.5 g/dL Low 11.7-15.[address] [facility] Comment on above: Performed By: #### H H ####[facility] ([id number])[address], [place] [address] Lactate (P mikey) [Moles/Vol]o n 06-20-2024 LACTATE W/REFLEX 1.4 mmol/L Normal 0.4-2.0 [facility] Comment on above: Result Comment: Resu lt did not trigger repeat Lactate,re-order if needed. Performed By: #### 3 2132-04 ####[facility] ([id number])[address], [address] [place] [address] MAGNESIUMon 06-20-2024 Magnesium [Mass/Vol] 2.1 mg/dL Normal 1.8-2.6 [facility] Comment on above: Performed By: #### C EWELINA, CMP, , 2776-1 ####[facility] ([id number])[address], [address] [place] [address] PHOSPHORUSon 06-20-2024 Phosphate [Mass/Vol] 4.3 mg/dL Normal 2.4-4.9 [facility] Comment on above: Performed By: #### C BCA, CMP, , 277-1 ####[facility] ([id number])[address], [address] [place] [address], [place] [address] XR CHEST 1 VWon 06-20-2024 XR CHEST 1 VW Normal [facility] CBC AND AUTO DIFFon 06-20-19 25 ABSOLUTE BASOPHIL 0.1 X10E9/L Normal 0.0-0.2 [facility] Comment on above: Performed By: #### C BCA, CMP, , 2776-04 ####[facility] ([id number])[address] [place] [address] ABSOLUTE NEUTROPHIL 3.5 X10E9/L Normal 1.5-6.6 [facility] Comment on above: Performed By: #### C BCA, CMP, , 2776-04 ####[facility] ([id number])[address], [address], [place] [address] Basophils/100 WBC (Bld) 1.2 % Normal [facility] Comment on above: Performed By: #### C EWELINA, CMP, , 2776-04 ####[facility] ([id number])[address], [address], [place] [address] Eosinophils (Bld) [#/Vol] 0.3 10*3/uL Normal 0.0-0.[address] [facility] Comment on above: Performed By: #### C BCA, CMP, , 2776-04 ####[facility] ([id number])[address], [address], [place] [address] Eosinophils/100 WBC (Bld) 4.7 % Normal [facility] Comment on above: Performed By: #### C BCA, CMP, , 2776-04 ####[facility] ([id number])[address], [address], [place] [address] Erythrocyte distribution width (RBC) [Ratio] 17.6 % High 11.5-15.[address] [facility] Comment on above: Performed By: #### C BCA, CMP, , 2776-04 ####[facility] ([id number])[address], [address], [place] [address] Hematocrit (Bld) [Volume fraction] 22.5 % Low 35-[address] [facility] Comment on above: Performed By: #### C BCA, CMP, , 2776-04 ####[facility] ([id number])[address], [address] [place] [address] Hemoglobin (Bld) [Mass/Vol] 7.4 g/dL Low 11.7-15.[address] [facility] Comment on above: Performed By: #### C EWELINA CMP, , 2776-04 ####[facility] ([id number])[address], [address] [place] [address] Lymphocytes (Bld) [#/Vol] 1.2 10*3/uL Normal 1.0-3.[address] [facility] Comment on above: Performed By: #### C EWELINA CMP, , 2776-04 ####[facility] ([id number])[address] [address] [address] Lymphocytes/100 WBC (Bld) 21.1 % Normal [facility] Comment on above: Performed By: #### Bertha BCA, CMP, , 2776-04 ####[facility] ([id number])[address] [address] [place] [address] MCH (RBC) [Entitic mass] 31.7 pg Normal 27-[address] [facility] Comment on above: Performed By: #### C EWELINA CMP, , 2776-04 ####[facility] ([id number])[address] [address] [place] [address] MCHC (RBC) [Mass/Vol] 32.7 g/dL Normal 32-36 [facility] Comment on above: Performed By: #### C BCA, CMP, , 2776-04 ####[facility] ([id number])[address], [place] [address] MCV (RBC) [Entitic vol] 97 fL Normal 80-100 [facility] Comment on above: Performed By: #### C BCA, CMP, , 2776-04 ####[facility] ([id number])[address], [place] [address] Monocytes (Bld) [#/Vol] 0.8 10*3/uL Normal 0-0.[address] [facility] Comment on above: Performed By: #### C BCA, CMP, , 2776-04 ####[facility] ([id number])[address] [place] [address] Monocytes/100 WBC (Bld) 13.6 % Normal P [facility] Comment on above: Performed By: #### C BCA, CMP, , 2776-04 ####[facility] ([id number])[address] [place] [address] Neutrophils/100 WBC (Bld) 59.4 % Normal [facility] Comment on above: Performed By: #### C BCA, CMP, , 2776-04 ####[facility] ([id number])[address] [address] Platelet mean volume (Bld) [Entitic vol] 7.0 fL Normal 7-[address] [facility] Comment on above: Performed By: #### C BCA, CMP, , 2776-04 ####[facility] ([id number])[address], [place] [address] Platelets (Bld) [#/Vol] 65 10*3/uL Low 150-450 P [facility] Comment on above: Performed By: #### C BCA, CMP, , 2776-04 ####[facility] ([id number])[address], [place] [address] RBC COUNT 2.32 X10E12/L Low 3.80-5.[address] [facility] Comment on above: Performed By: #### C BCA, CMP, , 2776-04 ####[facility] ([id number])[address] [address] WBC (Bld) [#/Vol] 5.9 10*3/uL Normal 4.0-11.0 [facility] Comment on above: Performed By: #### C BCA, CMP, , 2776- ####[facility] ([id number])[address] [place] [address] COMPREHENSIVE METABOLIC PANE Kael 06-19-2024 Albumin [Mass/Vol] 3.2 g/dL Normal 3.2-5.3 [facility] Comment on above: Performed By: #### C BCA, CMP, , 2776-04 ####[facility] ([id number])[address] [place] [address] ALP [Catalytic activity/Vol] 65 U/L Normal 39-[address] [facility] Comment on above: Performed By: #### C BCA, CMP, , 2776- ####[facility] ([id number])[address] [place] [address] ALT [Catalytic activity/Vol] 4 U/L Normal 0-[address] [facility] Comment on above: Performed By: #### C BCA, CMP, , 2776- ####[facility] ([id number])[address] [address] Anion gap [Moles/Vol] 8 mmol/L Normal 5-15 [facility] Comment on above: Performed By: #### C BCA, CMP, , 2776-04 ####[facility] ([id number])[address] [place] [address] AST [Catalytic activity/Vol] 11 U/L Normal 0-[address] [facility] Comment on above: Performed By: #### C BCA, CMP, , 2776-04 ####[facility] ([id number])[address], [place] [address] Bilirubin [Mass/Vol] 1.1 mg/dL Normal 0.3-1.2 [facility] Comment on above: Performed By: #### C BCA, CMP, , 2776-04 ####[facility] ([id number])[address], [place] [address] Calcium [Mass/Vol] 8.6 mg/dL Normal 8.5-10.5 [facility] Comment on above: Performed By: #### C BCA, CMP, , 2776-04 ####[facility] ([id number])[address], [place] [address] Chloride [Moles/Vol] 107 mmol/L Normal 98-109 [facility] Comment on above: Performed By: #### C BCA, CMP, , 2776-04 ####[facility] ([id number])[address] [address], [place] [address] CO2 [Moles/Vol] 23 mmol/L Normal 22-[address] [facility] Comment on above: Performed By: #### C BCA, CMP, , 2776-04 ####[facility] ([id number])[address] [address], [place] [address] Creatinine [Mass/Vol] 0.88 mg/dL Normal 0.40-1.00 [facility] Comment on above: Result Comment: METH OD TRACEABLE TO IDMS STANDARD Performed By: #### C BCA, CMP, , 2776-04 ####[facility] ([id number])[address], [place] [address] GFR/1.73 sq M.predicted among non-blacks MDRD (S/P/Bld) [Vol rate/Area] 75 mL/min/{1.73_m2} Normal >[address] [facility] Comment on above: Result Comment: Repo rted eGFR is based on theCKD-EPI 2020 equation that doesnot use a race coefficient. Performed By: #### C RENA THEODORE, , 2776-04 ####[facility] ([id number])[address], [place] [address] Glucose [Mass/Vol] 108 mg/dL High 65-99 [facility] Comment on above: Performed By: #### C RENA THEODORE, , 2776-04 ####[facility] ([id number])[address], [place] [address] Potassium [Moles/Vol] 3.4 mmol/L Low 3.5-5.0 [facility] Comment on above: Performed By: #### C EWELINA CMP, , 2776-04 ####[facility] ([id number])[address], [place] [address] Protein [Mass/Vol] 5.5 g/dL Low 6.0-8.0 [facility] Comment on above: Performed By: #### C RENA THEODORE, , 2776-04 ####[facility] ([id number])[address], [place] [address] Sodium [Moles/Vol] 138 mmol/L Normal 134-146 [facility] Comment on above: Performed By: #### C EWELINA CMP, , 2776-04 ####[facility] ([id number])[address], [address], [place] [address] Urea nitrogen [Mass/Vol] 9 mg/dL Normal 5-[address] [facility] Comment on above: Performed By: #### C EWELINA CMP, , 2776-04 ####[facility] ([id number])[address], [address], [place] [address] MAGNESIUMon 06-19-2024 Magnesium [Mass/Vol] 1.8 mg/dL Normal 1.8-2.6 [facility] Comment on above: Performed By: #### C EWELINA, CMP, , 2776-04 ####[facility] ([id number])[address], [address], [place] [address] Magnesium Ionized ISE (Bld) [Moles/Vol]on 06-19-2024 Magnesium [Moles/Vol] 0.62 mmol/L Normal 0.45-0.74 [facility] Comment on above: Result Comment: NEW REFERENCE RANGE Performed By: #### 7 3572-0 ####[facility] ([id number])[address], [address], [place] [address] PHOSPHORUSon 06-19-2024 Phosphate [Mass/Vol] 4.2 mg/dL Normal 2.4-4.9 [facility] Comment on above: Performed By: #### 2 823-3, 2776-04 ####[facility] ([id number])[address], [place] [address] Phosphate [Mass/Vol] 2.1 mg/dL Low 2.4-4.9 [facility] Comment on above: Performed By: #### C EWELINA, [facility], , 27710-08 ####[facility] ([id number])[address], [address], [place] [address] POTASSIUMon 06-19-2024 Potassium [Moles/Vol] 4.1 mmol/L Normal 3.5-5.0 [facility] Comment on above: Performed By: #### 2 823-3, 2777- ####[facility] ([id number])[address], [address] [place] [address] XR CHEST 1 VWon 06-19-2024 XR CHEST 1 VW Normal [facility] CBC AND AUTO DIFFon 06-19-19 25 ABSOLUTE BASOPHIL 0.1 X10E9/L Normal 0.0-0.2 [facility] Comment on above: Performed By: #### C BCA, CMP, LIVR, , 2776-04 ####[facility] ([id number])[address], [address] [place] [address] ABSOLUTE NEUTROPHIL 3.6 X10E9/L Normal 1.5-6.6 [facility] Comment on above: Performed By: #### C BCA, CMP, LIVR, , 2776-04 ####[facility] ([id number])[address] [address] [place] [address] Basophils/100 WBC (Bld) 1.5 % Normal [facility] [place] Comment on above: Performed By: #### C BCA, CMP, LIVR, , 2776-04 ####[facility] ([id number])[address] [address] [place] [address] Eosinophils (Bld) [#/Vol] 0.2 10*3/uL Normal 0.0-0.[address] [facility] Comment on above: Performed By: #### C BCA, CMP, LIVR, , 2776-04 ####[facility] ([id number])[address] [address] [place] [address] Eosinophils/100 WBC (Bld) 3.9 % Normal [facility] [facility] Comment on above: Performed By: #### C BCA, CMP, LIVR, , 2776-04 ####[facility] ([id number])[address] [address] [place] [address] Erythrocyte distribution width (RBC) [Ratio] 17.2 % High 11.5-15.[address] [facility] Comment on above: Performed By: #### C BCA, CMP, LIVR, , 2776-04 ####[facility] ([id number])[address] [address] [place] [address] Hematocrit (Bld) [Volume fraction] 24.3 % Low 35-[address] [facility] Comment on above: Performed By: #### C BCA, CMP, LIVR, , 2776-04 ####[facility] ([id number])[address] [address] [place] [address] Hemoglobin (Bld) [Mass/Vol] 8.1 g/dL Low 11.7-15.[address] [facility] Comment on above: Performed By: #### C BCA, CMP, LIVR, , 2776-04 ####[facility] ([id number])[address] [address] [place] [address] Lymphocytes (Bld) [#/Vol] 1.2 10*3/uL Normal 1.0-3.[address] [facility] Comment on above: Performed By: #### C BCA, CMP, LIVR, , 2776-04 ####[facility] ([id number])[address] [address] Lymphocytes/100 WBC (Bld) 20.1 % Normal [facility] Comment on above: Performed By: #### C BCA, CMP, LIVR, , 2776-04 ####[facility] ([id number])[address] [address] MCH (RBC) [Entitic mass] 32.1 pg Normal 27-[address] [facility] Comment on above: Performed By: #### C BCA, CMP, LIVR, , 2776-04 ####[facility] ([id number])[address] [address] MCHC (RBC) [Mass/Vol] 33.2 g/dL Normal 32-36 [facility] Comment on above: Performed By: #### C BCA, CMP, LIVR, , 2776-04 ####[facility] ([id number])[address], [address], [place] [address] MCV (RBC) [Entitic vol] 97 fL Normal 80-100 [facility] Comment on above: Performed By: #### C BCA, CMP, LIVR, , 2776-04 ####[facility] ([id number])[address] [address], [place] [address] Monocytes (Bld) [#/Vol] 0.8 10*3/uL Normal 0-0.[address] [facility] Comment on above: Performed By: #### C BCA, CMP, LIVR, , 2776-04 ####[facility] ([id number])[address] [address] [place] [address] Monocytes/100 WBC (Bld) 13.1 % Normal [facility] Comment on above: Performed By: #### C BCA, CMP, LIVR, , 2776-04 ####[facility] ([id number])[address] [address] [place] [address] Neutrophils/100 WBC (Bld) 61.4 % Normal [facility] Comment on above: Performed By: #### C BCA, CMP, LIVR, , 2776-04 ####[facility] ([id number])[address], [address] [address] Platelet mean volume (Bld) [Entitic vol] 6.6 fL Low 7-[address] [facility] Comment on above: Performed By: #### C BCA, CMP, LIVR, , 2776-04 ####[facility] ([id number])[address], [address] [place] [address] Platelets (Bld) [#/Vol] 77 10*3/uL Low 150-450 P [facility] Comment on above: Performed By: #### C BCA, CMP, LIVR, , 2776-04 ####[facility] ([id number])[address], [address] [place] [address] RBC COUNT 2.52 X10E12/L Low 3.80-5.[address] [facility] Comment on above: Performed By: #### C BCA, CMP, LIVR, , 2776-04 ####[facility] ([id number])[address] [address], [place] [address] WBC (Bld) [#/Vol] 5.8 10*3/uL Normal 4.0-11.0 [facility] Comment on above: Performed By: #### C BCA, CMP, LIVR, , 2776-04 ####[facility] ([id number])[address] [address] [place] [address] COMPREHENSIVE METABOLIC PANE Kael 06-18-2024 Albumin [Mass/Vol] 2.8 g/dL Low 3.2-5.3 [facility] Comment on above: Performed By: #### C BCA, CMP, LIVR, , 2776-04 ####[facility] ([id number])[address] [address] [address] ALP [Catalytic activity/Vol] 78 U/L Normal 39-[address] [facility] Comment on above: Performed By: #### C BCA, CMP, LIVR, , 2776-04 ####[facility] ([id number])[address], [address] [place] [address] ALT [Catalytic activity/Vol] 3 U/L Normal 0-[address] [facility] Comment on above: Performed By: #### C BCA, CMP, LIVR, , 2776-04 ####[facility] ([id number])[address], [address], [place] [address] Anion gap [Moles/Vol] 7 mmol/L Normal 5-15 [facility] Comment on above: Performed By: #### C BCA, CMP, LIVR, , 2776-04 ####[facility] ([id number])[address], [address], [place] [address] AST [Catalytic activity/Vol] 15 U/L Normal 0-[address] [facility] Comment on above: Performed By: #### C BCA, CMP, LIVR, , 2776-04 ####[facility] ([id number])[address], [address], [place] [address] Bilirubin [Mass/Vol] 1.2 mg/dL Normal 0.3-1.2 [facility] Comment on above: Performed By: #### C BCA, CMP, LIVR, , 2776-04 ####[facility] ([id number])[address], [address], [place] [address] Calcium [Mass/Vol] 8.6 mg/dL Normal 8.5-10.5 [facility] Comment on above: Performed By: #### C BCA, CMP, LIVR, , 2776-04 ####[facility] ([id number])[address], [address], [place] [address] Chloride [Moles/Vol] 106 mmol/L Normal 98-109 [facility] Comment on above: Performed By: #### C BCA, CMP, LIVR, , 2776-04 ####[facility] ([id number])[address], [place] [address] CO2 [Moles/Vol] 26 mmol/L Normal 22-[address] [facility] Comment on above: Performed By: #### C BCA, CMP, LIVR, , 2776-04 ####[facility] ([id number])[address] [address] [address] Creatinine [Mass/Vol] 0.72 mg/dL Normal 0.40-1.00 [facility] Comment on above: Result Comment: METH OD TRACEABLE TO IDMS STANDARD Performed By: #### C BCA, CMP, LIVR, , 2776-04 ####[facility] ([id number])[address] [address], [place] [address] eGFR (CKD-EPI) NON-RACE DEPENDENT >90 Normal >[address] [facility] Comment on above: Result Comment: Repo rted eGFR is based on theCKD-EPI 2020 equation that doesnot use a race coefficient. Performed By: #### C BCA, CMP, LIVR, , 2776-04 ####[facility] ([id number])[address] [address] [address] Glucose [Mass/Vol] 95 mg/dL Normal 65-99 [facility] Comment on above: Performed By: #### C BCA, CMP, LIVR, , 2776-04 ####[facility] ([id number])[address] [address] [address] Potassium [Moles/Vol] 3.9 mmol/L Normal 3.5-5.0 [facility] Comment on above: Performed By: #### C BCA, CMP, LIVR, , 2776-04 ####[facility] ([id number])[address] [address] [place] [address] Protein [Mass/Vol] 5.5 g/dL Low 6.0-8.0 [facility] Comment on above: Performed By: #### C BCA, CMP, LIVR, , 2776-04 ####[facility] ([id number])[address] [place] [address] Sodium [Moles/Vol] 139 mmol/L Normal 134-146 [facility] Comment on above: Performed By: #### C BCA, CMP, LIVR, , 2776-04 ####[facility] ([id number])[address], [address] [address] Urea nitrogen [Mass/Vol] 8 mg/dL Normal 5-[address] [facility] Comment on above: Performed By: #### C BCA, CMP, LIVR, , 2776-04 ####[facility] ([id number])[address], [address] [place] [address] LIVER PANELon 06-18-2024 Bilirubin.direct [Mass/Vol] 0.7 mg/dL High 0.0-0.[address] [facility] Comment on above: Performed By: #### C BCA, CMP, LIVR, , 2776-04 ####[facility] ([id number])[address], [address] [place] [address] MAGNESIUMon 06-18-2024 Magnesium [Mass/Vol] 1.9 mg/dL Normal 1.8-2.6 [facility] Comment on above: Performed By: #### C BCA, CMP, LIVR, , 2776-04 ####[facility] ([id number])[address], [address] [place] [address] PHOSPHORUSon 06-18-2024 Phosphate [Mass/Vol] 3.1 mg/dL Normal 2.4-4.9 [facility] Comment on above: Performed By: #### C BCA, CMP, LIVR, , 2776-04 ####[facility] ([id number])[address], [address], [place] [address] PROTIME AND INRon 06-18-2024 INR Coag (PPP) [Relative time] 1.1 {INR} Normal 0.9-1.[address] [facility] Comment on above: Performed By: #### P INR, 05813-2 ####[facility] ([id number])[address], [address], [place] [address] PT Coag (PPP) [Time] 13.0 s Normal 9.8-13.2 [facility] Comment on above: Performed By: #### P INR, 69451-9 ####[facility] ([id number])[address], [address] [place] [address] XR CHEST 1 VWon 06-18-2024 XR CHEST 1 VW Normal [facility] aPTT Coag (PPP) [Time]on aPTT Coag (Bld) [Time] 31 s Normal 26-37 Pr [facility] Comment on above: Performed By: #### P INR, 40620-4 ####[facility] ([id number])[address], [address] [place] [address] CBC AND AUTO DIFFon 03-10-20 25 ABSOLUTE BASOPHIL 0.1 X10E9/L Normal 0.0-0.2 [facility] Comment on above: Performed By: #### C BCA, CMP, LIVR, , 2776- ####[facility] ([id number])[address], [address], [place] [address] ABSOLUTE NEUTROPHIL 3.2 X10E9/L Normal 1.5-6.6 [facility] Comment on above: Performed By: #### C BCA, CMP, LIVR, , 2776- ####[facility] ([id number])[address] [address] Basophils/100 WBC (Bld) 1.4 % Normal [facility] Comment on above: Performed By: #### C BCA, CMP, LIVR, , 2776-04 ####[facility] ([id number])[address], [address], [place] [address] Eosinophils (Bld) [#/Vol] 0.1 10*3/uL Normal 0.0-0.[address] [facility] Comment on above: Performed By: #### C BCA, CMP, LIVR, , 2776-04 ####[facility] ([id number])[address], [address] [place] [address] Eosinophils/100 WBC (Bld) 2.4 % Normal [facility] Comment on above: Performed By: #### C BCA, CMP, LIVR, , 2776-04 ####[facility] ([id number])[address] [address] [place] [address] Erythrocyte distribution width (RBC) [Ratio] 17.5 % High 11.5-15.[address] [facility] Comment on above: Performed By: #### C BCA, CMP, LIVR, , 2776-04 ####[facility] ([id number])[address] [address] Hematocrit (Bld) [Volume fraction] 24.5 % Low 35-[address] [facility] Comment on above: Performed By: #### C BCA, CMP, LIVR, , 2776-04 ####[facility] ([id number])[address] [address] Hemoglobin (Bld) [Mass/Vol] 8.3 g/dL Low 11.7-15.[address] [facility] Comment on above: Performed By: #### C BCA, CMP, LIVR, , 2776-04 ####[facility] ([id number])[address] [address] Lymphocytes (Bld) [#/Vol] 0.9 10*3/uL Low 1.0-3.[address] [facility] Comment on above: Performed By: #### C BCA, CMP, LIVR, , 2776-04 ####[facility] ([id number])[address], [place] [address] Lymphocytes/100 WBC (Bld) 19.3 % Normal [facility] Comment on above: Performed By: #### C BCA, CMP, LIVR, , 2776-04 ####[facility] ([id number])[address] [address] MCH (RBC) [Entitic mass] 32.3 pg Normal 27-[address] [facility] Comment on above: Performed By: #### C BCA, CMP, LIVR, , 2776-04 ####[facility] ([id number])[address] [address] MCHC (RBC) [Mass/Vol] 33.8 g/dL Normal 32-36 [facility] Comment on above: Performed By: #### C BCA, CMP, LIVR, , 2776-04 ####[facility] ([id number])[address] [address] [address] MCV (RBC) [Entitic vol] 96 fL Normal 80-100 P [facility] Comment on above: Performed By: #### C BCA, CMP, LIVR, , 2776-04 ####[facility] ([id number])[address] [place] [address] Monocytes (Bld) [#/Vol] 0.5 10*3/uL Normal 0-0.[address] [facility] Comment on above: Performed By: #### C BCA, CMP, LIVR, , 2776-04 ####[facility] ([id number])[address] [place] [address] Monocytes/100 WBC (Bld) 10.6 % Normal [facility] Comment on above: Performed By: #### C BCA, CMP, LIVR, , 2776-04 ####[facility] ([id number])[address] [place] [address] Neutrophils/100 WBC (Bld) 66.3 % Normal [facility] Comment on above: Performed By: #### C BCA, CMP, LIVR, , 2776-04 ####[facility] ([id number])[address] [place] [address] Platelet mean volume (Bld) [Entitic vol] 6.8 fL Low 7-[address] [facility] Comment on above: Performed By: #### C BCA, CMP, LIVR, , 2776-04 ####[facility] ([id number])[address] [address] [place] [address] Platelets (Bld) [#/Vol] 87 10*3/uL Low 150-450 [facility] Comment on above: Performed By: #### C BCA, CMP, LIVR, , 2776-04 ####[facility] ([id number])[address] [place] [address] RBC COUNT 2.56 X10E12/L Low 3.80-5.[address] [facility] Comment on above: Performed By: #### C BCA, CMP, LIVR, , 2776-04 ####[facility] ([id number])[address] [place] [address] WBC (Bld) [#/Vol] 4.8 10*3/uL Normal 4.0-11.0 [facility] Comment on above: Performed By: #### C BCA, CMP, LIVR, , 2776-04 ####[facility] ([id number])[address], [place] [address] COMPREHENSIVE METABOLIC PANE Kael 06-17-2024 Albumin [Mass/Vol] 2.8 g/dL Low 3.2-5.3 [facility] Comment on above: Performed By: #### C BCA, CMP, LIVR, , 2776-04 ####[facility] ([id number])[address], [address] [place] [address] ALP [Catalytic activity/Vol] 76 U/L Normal 39-[address] [facility] Comment on above: Performed By: #### C BCA, CMP, LIVR, , 2776-04 ####[facility] ([id number])[address] [address] [place] [address] ALT [Catalytic activity/Vol] 4 U/L Normal 0-[address] [facility] Comment on above: Performed By: #### C BCA, CMP, LIVR, , 2776-04 ####[facility] ([id number])[address] [address] [place] [address] Anion gap [Moles/Vol] 9 mmol/L Normal 5-15 [facility] Comment on above: Performed By: #### C BCA, CMP, LIVR, , 2776-04 ####[facility] ([id number])[address] [address] [place] [address] Performed By: #### E LEC, ####[facility] ([id number])[address] [address] [place] [address] AST [Catalytic activity/Vol] 15 U/L Normal 0-[address] [facility] Comment on above: Performed By: #### C BCA, CMP, LIVR, , 2776-04 ####[facility] ([id number])[address] [address] [place] [address] Bilirubin [Mass/Vol] 1.5 mg/dL High 0.3-1.2 [facility] Comment on above: Performed By: #### C BCA, CMP, LIVR, , 2776-04 ####[facility] ([id number])[address] [address] Calcium [Mass/Vol] 8.5 mg/dL Normal 8.5-10.5 [facility] Comment on above: Performed By: #### C BCA, CMP, LIVR, , 2776-04 ####[facility] ([id number])[address] [address] [place] [address] CO2 [Moles/Vol] 26 mmol/L Normal 22-[address] [facility] Comment on above: Performed By: #### C BCA, CMP, LIVR, , 2776-04 ####[facility] ([id number])[address] [address] [place] [address] Creatinine [Mass/Vol] 0.90 mg/dL Normal 0.40-1.00 [facility] Comment on above: Result Comment: METH OD TRACEABLE TO IDMS STANDARD Performed By: #### C BCA, CMP, LIVR, , 2776-04 ####[facility] ([id number])[address] [address] GFR/1.73 sq M.predicted among non-blacks MDRD (S/P/Bld) [Vol rate/Area] 73 mL/min/{1.73_m2} Normal >[address] [facility] Comment on above: Result Comment: Repo rted eGFR is based on theCKD-EPI 2020 equation that doesnot use a race coefficient. Performed By: #### C BCA, CMP, LIVR, , 2776-04 ####[facility] ([id number])[address], [place] [address] Glucose [Mass/Vol] 79 mg/dL Normal 65-99 [facility] Comment on above: Performed By: #### C BCA, CMP, LIVR, , 2776-04 ####[facility] ([id number])[address] [address] [place] [address] Potassium [Moles/Vol] 4.0 mmol/L Normal 3.5-5.0 [facility] Comment on above: Performed By: #### C BCA, CMP, LIVR, , 2776-04 ####[facility] ([id number])[address] [place] [address] Protein [Mass/Vol] 5.0 g/dL Low 6.0-8.0 [facility] Comment on above: Performed By: #### C BCA, CMP, LIVR, , 2776-04 ####[facility] ([id number])[address] [place] [address] Urea nitrogen [Mass/Vol] 7 mg/dL Normal 5-[address] [facility] Comment on above: Performed By: #### C BCA, CMP, LIVR, , 2776-04 ####[facility] ([id number])[address] [address] [place] [address] Chloride [Moles/Vol] 105 mmol/L Normal 98-109 [facility] Comment on above: Performed By: #### C BCA, CMP, LIVR, , 2776-04 ####[facility] ([id number])[address], [place] [address] Performed By: #### E LEC, ####[facility] ([id number])[address], [address] [place] [address], [place] [address] Sodium [Moles/Vol] 140 mmol/L Normal 134-146 [facility] Comment on above: Performed By: #### C BCA, CMP, LIVR, , 2776-04 ####[facility] ([id number])[address], [address] [place] [id number] Performed By: #### E LEC, ####[facility] ([id number])[address], [address] [place] [address] Calcium.ionized (Bld) [Mass/ Vol]on 06-17-2024 IONIZED CALCIUM 4.9 mg/dL Normal 4.5-5.[address] [facility] Comment on above: Performed By: #### 3 8230-9, 02703-0 ####[facility] ([id number])[address] [place] [address] ELECTROLYTESon 06-17-2024 Anion gap [Moles/Vol] 10 mmol/L Normal 5-15 [facility] Comment on above: Performed By: #### E LEC, , 2776-04 ####[facility] ([id number])[address], [address] [place] [address] Chloride [Moles/Vol] 106 mmol/L Normal 98-109 [facility] Comment on above: Performed By: #### E LEC, , 2776-04 ####[facility] ([id number])[address], [address] [place] [address] CO2 [Moles/Vol] 25 mmol/L Normal 22-[address] [facility] Comment on above: Performed By: #### E LEC, , 2776-04 ####[facility] ([id number])[address], [place] [address] Potassium [Moles/Vol] 4.1 mmol/L Normal 3.5-5.0 [facility] Comment on above: Performed By: #### E LEC, , 2776-04 ####[facility] ([id number])[address], [place] [address] Performed By: #### E LEC, ####[facility] ([id number])[address], [place] [address] Sodium [Moles/Vol] 141 mmol/L Normal 134-146 [facility] Comment on above: Performed By: #### E LEC, , 2776-04 ####[facility] ([id number])[address], [place] [address] Anion gap [Moles/Vol] 10 mmol/L Normal 5-15 [facility] Comment on above: Performed By: #### E LEC, ####[facility] LAB ([id number])[address], [address], [place] [address] CO2 [Moles/Vol] 25 mmol/L Normal 22-[address] [facility] Comment on above: Performed By: #### E LEC, ####[facility] ([id number])[address], [address], [place] [address] Potassium [Moles/Vol] 4.2 mmol/L Normal 3.5-5.0 [facility] Comment on above: Performed By: #### E LEC, ####[facility] ([id number])[address], [address], [place] [address] Chloride [Moles/Vol] 104 mmol/L Normal 98-109 [facility] Comment on above: Performed By: #### E LEC, ####[facility] ([id number])[address], [address], [place] [address] CO2 [Moles/Vol] 27 mmol/L Normal 22-[address] [facility] Comment on above: Performed By: #### E LEC, ####[facility] ([id number])[address], [address], [place] [address] Anion gap [Moles/Vol] 10 mmol/L Normal 5-15 [facility] Comment on above: Performed By: #### E LEC, ####[facility] ([id number])[address], [place] [address] Chloride [Moles/Vol] 105 mmol/L Normal 98-109 [facility] Comment on above: Performed By: #### E LEC, ####[facility] ([id number])[address], [place] [address] CO2 [Moles/Vol] 25 mmol/L Normal 22-[address] [facility] Comment on above: Performed By: #### E LEC, ####[facility] ([id number])[address], [address], [place] [address] Potassium [Moles/Vol] 3.9 mmol/L Normal 3.5-5.0 [facility] Comment on above: Performed By: #### E LEC, ####[facility] ([id number])[address], [address], [place] [address] Sodium [Moles/Vol] 140 mmol/L Normal 134-146 [facility] Comment on above: Performed By: #### E LEC, ####[facility] ([id number])[address], [address], [place] [address] LIVER PANELon 06-17-2024 Bilirubin.direct [Mass/Vol] 0.7 mg/dL High 0.0-0.[address] [facility] Comment on above: Performed By: #### C BCA, CMP, LIVR, , 2776-04 ####[facility] ([id number])[address], [address], [place] [address] MAGNESIUMon 06-17-2024 Magnesium [Mass/Vol] 2.3 mg/dL Normal 1.8-2.6 [facility] Comment on above: Performed By: #### E LEC, , 2776-04 ####[facility] ([id number])[address], [address], [place] [address] Magnesium [Mass/Vol] 2.0 mg/dL Normal 1.8-2.6 [facility] Comment on above: Performed By: #### C BCA, CMP, LIVR, , 2776-04 ####[facility] ([id number])[address], [address], [place] [address] Performed By: #### Cyndie LEC, ####[facility] ([id number])[address], [address], [place] [address] Magnesium [Mass/Vol] 1.8 mg/dL Normal 1.8-2.6 [facility] Comment on above: Performed By: #### Cyndie LEC, ####[facility] ([id number])[address], [address], [place] [address] Magnesium [Mass/Vol] 2.1 mg/dL Normal 1.8-2.6 [facility] Comment on above: Performed By: #### E LEC, ####[facility] ([id number])[address], [address], [place] [address] Performed By: #### C BCA, CMP, LIVR, , 2776-04 ####[facility] ([id number])[address], [address] [address] Magnesium Ionized ISE (Bld) [Moles/Vol]on 06-17-2024 Magnesium [Moles/Vol] 0.63 mmol/L Normal 0.45-0.74 [facility] Comment on above: Result Comment: NEW REFERENCE RANGE Performed By: #### 3 8230-9, 21213-1 ####[facility] ([id number])[address], [address] [place] [address], [place] [address] PHOSPHORUSon 06-17-2024 Phosphate [Mass/Vol] 2.1 mg/dL Low 2.4-4.9 [facility] Comment on above: Performed By: #### E LEC, , 2776-04 ####[facility] ([id number])[address] [address] [place] [address] Phosphate [Mass/Vol] 2.8 mg/dL Normal 2.4-4.9 [facility] Comment on above: Performed By: #### C BCA, CMP, LIVR, , 2776-04 ####[facility] ([id number])[address] [address] [place] [address], [place] [address] PROTIME AND INRon 06-17-2024 INR Coag (PPP) [Relative time] 1.2 {INR} Normal 0.9-1.[address] [facility] Comment on above: Performed By: #### P INR, 79044-4 ####[facility] ([id number])[address], [address] [address] PT Coag (PPP) [Time] 13.3 s High 9.8-13.2 [facility] Comment on above: Performed By: #### P INR, 63142-6 ####[facility] ([id number])[address], [address] [place] [address] INR Coag (PPP) [Relative time] 1.2 {INR} Normal 0.9-1.[address] [facility] Comment on above: Performed By: #### P INR, 95808-5 ####[facility] ([id number])[address], [address] [place] [address] PT Coag (PPP) [Time] 13.9 s High 9.8-13.2 [facility] Comment on above: Performed By: #### P INR, 19918-4 ####[facility] ([id number])[address], [address] [place] [address] Vancomycin [Mass/Vol]on 06-08 VANCOMYCIN 15.8 ug/mL Normal 5.0-40.[address] [facility] Comment on above: Result Comment: Peak 30-40 ug/mLTrough 5-20 ug/ml Performed By: #### 2 0578-1 ####[facility] ([id number])[address], [address] [place] [address] XR ABD NG TUBE PLACEMENT 1 V IEWon 06-17-2024 XR ABD NG TUBE PLACEMENT 1 VIEW Normal [facility] XR CHEST 1 VWon 06-17-2024 XR CHEST 1 VW Normal [facility] aPTT Coag (PPP) [Time]on aPTT Coag (Bld) [Time] 31 s Normal 26-37 [facility] Comment on above: Performed By: #### P INR, 52321-1 ####[facility] ([id number])[address], [address] [place] [address] aPTT Coag (Bld) [Time] 33 s Normal 26-37 [facility] Comment on above: Performed By: #### P INR, 40806-9 ####[facility] ([id number])[address], [address] [place] [address], [place] [address] ARTERIAL BLOOD GASon 025 ROBERT'S TEST Normal [facility] Comment on above: Performed By: #### A BG ####[facility] ([id number])[address] [place] [address] Base excess Calc (Bld) [Moles/Vol] 0.0 mmol/L Normal 0.0-2.[address] [facility] Comment on above: Performed By: #### A BG ####[facility] ([id number])[address] [place] [address] Body temperature 98.6 [degF] Normal 37.0 [facility] Comment on above: Performed By: #### A BG ####[facility] ([id number])[address] [place] [address] HCO3 (Bld) [Moles/Vol] 23.5 mmol/L Normal 22-26 [facility] [place] Comment on above: Performed By: #### A BG ####[facility] ([id number])[address] [place] [address] INSP. O2 CONC. 40 % Normal [facility] Comment on above: Performed By: #### A BG ####[facility] ([id number])[address] [place] [address] Oxygen (Bld) [Partial pressure] 66 mm[Hg] Low 80-[address] [facility] Comment on above: Performed By: #### A BG ####[facility] ([id number])[address] [place] [address] Oxygen saturation in Blood 94.0 % Normal >[address] [facility] Comment on above: Performed By: #### A BG ####[facility] ([id number])[address] [place] [address] OXYGEN SOURCE Vent Normal [facility] Comment on above: Performed By: #### A BG ####[facility] ([id number])[address] [place] [address] PCO2 34.6 MMHG Low 35-[address] [facility] Comment on above: Performed By: #### A BG ####[facility] ([id number])[address] [place] [address] pH (Bld) 7.440 [pH] Normal 7.350-7.[address] [facility] Comment on above: Performed By: #### A BG ####[facility] ([id number])[address] [place] [address] SAMPLE SITE [facility] Comment on above: Performed By: #### A BG ####[facility] ([id number])[address] [place] [address] SAMPLE TYPE ARTERIAL Normal [facility] Comment on above: Performed By: #### A BG ####[facility] ([id number])[address] [place] [address] CBC AND AUTO DIFFon 06-17-19 25 ABSOLUTE BASOPHIL 0.1 X10E9/L Normal 0.0-0.2 [facility] Comment on above: Performed By: #### C BCA, CMP, LIVR, 10335-4, 2777-1 ####[facility] ([id number])[address], [address] [place] [place] [address] ABSOLUTE NEUTROPHIL 2.4 X10E9/L Normal 1.5-6.6 [facility] Comment on above: Performed By: #### C BCA, CMP, LIVR, 65333-1, 2777-1 ####[facility] ([id number])[address] [place] [address] Basophils/100 WBC (Bld) 1.2 % Normal [facility] [place] Comment on above: Performed By: #### C BCA, CMP, LIVR, , 2776-04 ####[facility] ([id number])[address], [place] [address] Eosinophils (Bld) [#/Vol] 0.1 10*3/uL Normal 0.0-0.[address] [facility] Comment on above: Performed By: #### C BCA, CMP, LIVR, , 2776-04 ####[facility] ([id number])[address], [place] [address] Eosinophils/100 WBC (Bld) 2.7 % Normal [facility] Comment on above: Performed By: #### C BCA, CMP, LIVR, , 2776-04 ####[facility] ([id number])[address] [address], [place] [address] Erythrocyte distribution width (RBC) [Ratio] 17.3 % High 11.5-15.[address] [facility] Comment on above: Performed By: #### C BCA, CMP, LIVR, , 2776-04 ####[facility] ([id number])[address] [address], [place] [address] Hematocrit (Bld) [Volume fraction] 23.9 % Low 35-[address] [facility] Comment on above: Performed By: #### C BCA, CMP, LIVR, , 2776-04 ####[facility] ([id number])[address] [place] [address] Hemoglobin (Bld) [Mass/Vol] 8.1 g/dL Low 11.7-15.[address] [facility] Comment on above: Performed By: #### C BCA, CMP, LIVR, , 2777-1 ####[facility] ([id number])[address] [address] Lymphocytes (Bld) [#/Vol] 1.0 10*3/uL Normal 1.0-3.[address] [facility] Comment on above: Performed By: #### C BCA, CMP, LIVR, , 2776-04 ####[facility] ([id number])[address], [place] [address] Lymphocytes/100 WBC (Bld) 23.8 % Normal [facility] Comment on above: Performed By: #### C BCA, CMP, LIVR, , 2776-04 ####[facility] ([id number])[address] [address] [place] [address] MCH (RBC) [Entitic mass] 32.0 pg Normal 27-[address] [facility] Comment on above: Performed By: #### C BCA, CMP, LIVR, , 2776-04 ####[facility] ([id number])[address] [address] [place] [address] MCHC (RBC) [Mass/Vol] 33.9 g/dL Normal 32-36 [facility] Comment on above: Performed By: #### C BCA, CMP, LIVR, , 2776-04 ####[facility] ([id number])[address] [address] [place] [address], [place] [address] MCV (RBC) [Entitic vol] 94 fL Normal 80-100 P [facility] Comment on above: Performed By: #### C BCA, CMP, LIVR, , 2776-04 ####[facility] ([id number])[address] [address] [address] Monocytes (Bld) [#/Vol] 0.6 10*3/uL Normal 0-0.[address] [facility] Comment on above: Performed By: #### C BCA, CMP, LIVR, , 2776-04 ####[facility] ([id number])[address], [address], [place] [address] Monocytes/100 WBC (Bld) 13.8 % Normal [facility] [place] Comment on above: Performed By: #### C BCA, CMP, LIVR, , 2776-04 ####[facility] ([id number])[address] [place] [address] Neutrophils/100 WBC (Bld) 58.5 % Normal [facility] Comment on above: Performed By: #### C BCA, CMP, LIVR, , 2776-04 ####[facility] ([id number])[address] [place] [address] Platelet mean volume (Bld) [Entitic vol] 7.3 fL Normal 7-[address] [facility] Comment on above: Performed By: #### C BCA, CMP, LIVR, , 2776-04 ####[facility] ([id number])[address] [address] [place] [address] Platelets (Bld) [#/Vol] 99 10*3/uL Low 150-450 [facility] [place] Comment on above: Performed By: #### C BCA, CMP, LIVR, , 2776-04 ####[facility] ([id number])[address], [place] [address] RBC COUNT 2.53 X10E12/L Low 3.80-5.[address] [facility] Comment on above: Performed By: #### C BCA, CMP, LIVR, , 2776-04 ####[facility] ([id number])[address], [place] [address] WBC (Bld) [#/Vol] 4.2 10*3/uL Normal 4.0-11.0 [facility] Comment on above: Performed By: #### C BCA, CMP, LIVR, , 2776- ####[facility] ([id number])[address] [place] [address] COMPREHENSIVE METABOLIC PANE Kael 06-16-2024 ALP [Catalytic activity/Vol] 74 U/L Normal 39-[address] [facility] Comment on above: Performed By: #### C BCA, CMP, LIVR, , 2776- ####[facility] ([id number])[address] [place] [address] Anion gap [Moles/Vol] 11 mmol/L Normal 5-15 [facility] Comment on above: Performed By: #### C BCA, CMP, LIVR, , 2776- ####[facility] ([id number])[address] [address] AST [Catalytic activity/Vol] 14 U/L Normal 0-[address] [facility] Comment on above: Performed By: #### C BCA, CMP, LIVR, , 2776-04 ####[facility] ([id number])[address] [address] Calcium [Mass/Vol] 8.6 mg/dL Normal 8.5-10.5 [facility] Comment on above: Performed By: #### C BCA, CMP, LIVR, , 2776- ####[facility] ([id number])[address] [place] [address] Chloride [Moles/Vol] 103 mmol/L Normal 98-109 [facility] Comment on above: Performed By: #### C BCA, CMP, LIVR, , 2776- ####[facility] ([id number])[address] [address], [place] [address] CO2 [Moles/Vol] 24 mmol/L Normal 22-[address] [facility] Comment on above: Performed By: #### C BCA, CMP, LIVR, , 2776-04 ####[facility] ([id number])[address] [address], [place] [address] Creatinine [Mass/Vol] 1.31 mg/dL High 0.40-1.00 [facility] Comment on above: Result Comment: METH OD TRACEABLE TO IDMS STANDARD Performed By: #### C BCA, CMP, LIVR, , 2776-04 ####[facility] ([id number])[address] [address] GFR/1.73 sq M.predicted among non-blacks MDRD (S/P/Bld) [Vol rate/Area] 46 mL/min/{1.73_m2} Low >[address] [facility] Comment on above: Result Comment: Repo rted eGFR is based on theCKD-EPI 2020 equation that doesnot use a race coefficient. Performed By: #### C BCA, CMP, LIVR, , 2776-04 ####[facility] ([id number])[address] [address], [place] [address] Glucose [Mass/Vol] 87 mg/dL Normal 65-99 [facility] Comment on above: Performed By: #### C BCA, CMP, LIVR, , 2776-04 ####[facility] ([id number])[address] [address] Protein [Mass/Vol] 5.1 g/dL Low 6.0-8.0 [facility] Comment on above: Performed By: #### C BCA, CMP, LIVR, , 2776-04 ####[facility] ([id number])[address] [address] [address] Urea nitrogen [Mass/Vol] 14 mg/dL Normal 5-[address] [facility] Comment on above: Performed By: #### C BCA, CMP, LIVR, , 2776-04 ####[facility] ([id number])[address] [address] Albumin [Mass/Vol] 2.9 g/dL Low 3.2-5.3 [facility] Comment on above: Performed By: #### C BCA, CMP, LIVR, , 2776-04 ####[facility] ([id number])[address] [address] [address] Performed By: #### L IVR ####[facility] ([id number])[address] [address] [address] ALT [Catalytic activity/Vol] 4 U/L Normal 0-[address] [facility] Comment on above: Performed By: #### C BCA, CMP, LIVR, , 2776-04 ####[facility] ([id number])[address] [address] [address] Performed By: #### L IVR ####[facility] ([id number])[address] [address] [address] Bilirubin [Mass/Vol] 1.4 mg/dL High 0.3-1.2 [facility] Comment on above: Performed By: #### C BCA, CMP, LIVR, , 2776-04 ####[facility] ([id number])[address] [address] [address] Performed By: #### L IVR ####[facility] ([id number])[address] [address] [place] [address] ELECTROLYTESon 06-16-2024 Anion gap [Moles/Vol] 8 mmol/L Normal 5-15 [facility] Comment on above: Performed By: #### E LEC, , 2776-04 ####[facility] ([id number])[address], [place] [address] Chloride [Moles/Vol] 105 mmol/L Normal 98-109 [facility] Comment on above: Performed By: #### E LEC, , 2776-04 ####[facility] ([id number])[address], [place] [address] CO2 [Moles/Vol] 25 mmol/L Normal 22-[address] [facility] Comment on above: Performed By: #### E LEC, , 2776-04 ####[facility] ([id number])[address], [place] [address] Potassium [Moles/Vol] 3.9 mmol/L Normal 3.5-5.0 [facility] Comment on above: Performed By: #### Cyndie LEC, , 2776-04 ####[facility] ([id number])[address], [place] [address] Performed By: #### C BCA, CMP, LIVR, , 2776-04 ####[facility] ([id number])[address], [place] [address] Sodium [Moles/Vol] 138 mmol/L Normal 134-146 [facility] Comment on above: Performed By: #### E LEC, , 2776-04 ####[facility] ([id number])[address], [place] [address] Performed By: #### C BCA, CMP, LIVR, , 2776-04 ####[facility] ([id number])[address], [place] [address] Anion gap [Moles/Vol] 7 mmol/L Normal 5-15 [facility] Comment on above: Performed By: #### E LEC, ####[facility] ([id number])[address], [place] [address] Chloride [Moles/Vol] 105 mmol/L Normal 98-109 [facility] Comment on above: Performed By: #### E LEC, ####[facility] ([id number])[address], [place] [address] CO2 [Moles/Vol] 26 mmol/L Normal 22-[address] [facility] Comment on above: Performed By: #### E LEC, ####[facility] ([id number])[address], [place] [address] Potassium [Moles/Vol] 3.9 mmol/L Normal 3.5-5.0 [facility] Comment on above: Performed By: #### E LEC, ####[facility] ([id number])[address], [place] [address] Sodium [Moles/Vol] 138 mmol/L Normal 134-146 [facility] Comment on above: Performed By: #### E LEC, ####[facility] ([id number])[address], [place] [address] LIVER PANELon 06-16-2024 ALP [Catalytic activity/Vol] 79 U/L Normal 39-[address] [facility] Comment on above: Performed By: #### L IVR ####[facility] ([id number])[address], [place] [address] AST [Catalytic activity/Vol] 15 U/L Normal 0-[address] [facility] Comment on above: Performed By: #### L IVR ####[facility] ([id number])[address] [place] [address] Bilirubin.direct [Mass/Vol] 0.7 mg/dL High 0.0-0.[address] [facility] Comment on above: Performed By: #### C BCA, CMP, LIVR, , 2776-04 ####[facility] ([id number])[address] [address] Performed By: #### L IVR ####[facility] ([id number])[address] [place] [place] [address] Protein [Mass/Vol] 5.2 g/dL Low 6.0-8.0 [facility] Comment on above: Performed By: #### L IVR ####[facility] ([id number])[address], [address], [place] [address] MAGNESIUMon 06-16-2024 Magnesium [Mass/Vol] 1.8 mg/dL Normal 1.8-2.6 [facility] Comment on above: Performed By: #### E LEC, , 2776-04 ####[facility] ([id number])[address] [address] [place] [place] [address] Magnesium [Mass/Vol] 1.9 mg/dL Normal 1.8-2.6 [facility] Comment on above: Performed By: #### E LEC, ####[facility] ([id number])[address] [address], [place] [address] PHOSPHORUSon 06-16-2024 Phosphate [Mass/Vol] 2.3 mg/dL Low 2.4-4.9 [facility] Comment on above: Performed By: #### E LEC, , 2776-04 ####[facility] ([id number])[address], [address] [address] Phosphate [Mass/Vol] 3.1 mg/dL Normal 2.4-4.9 [facility] Comment on above: Performed By: #### C BCA, CMP, LIVR, 95248-5, 2777-1 ####[facility] ([id number])[address], [address] [address] PROTIME AND INRon 06-16-2024 PT Coag (PPP) [Time] 14.5 s High 9.8-13.2 [facility] Comment on above: Performed By: #### P INR, 76153-3 ####[facility] ([id number])[address], [address] [address] INR Coag (PPP) [Relative time] 1.3 {INR} High 0.9-1.[address] [facility] Comment on above: Performed By: #### P INR, 26320-6 ####[facility] ([id number])[address], [address] [place] [place] [address] PT Coag (PPP) [Time] 15.1 s High 9.8-13.2 [facility] Comment on above: Performed By: #### P INR, 57960-0 ####[facility] ([id number])[address] [address] [place] [place] [address] Vancomycin [Mass/Vol]on VANCOMYCIN 15.8 ug/mL Normal 5.0-40.[address] [facility] Comment on above: Result Comment: Peak 30-40 ug/mLTrough 5-20 ug/ml Performed By: #### 2 0578-1 ####[facility] ([id number])[address], [address] [place] [place] [address] XR CHEST 1 VWon 06-16-2024 XR CHEST 1 VW Normal [facility] aPTT Coag (PPP) [Time]on aPTT Coag (Bld) [Time] 33 s Normal 26-37 Pr [facility] Comment on above: Performed By: #### P INR, 07055-7 ####[facility] ([id number])[address] [place] [place] [address] aPTT Coag (Bld) [Time] 32 s Normal 26-37 [facility] Comment on above: Performed By: #### P INR, 36510-6 ####[facility] ([id number])[address], [address] [address] ARTERIAL BLOOD GASon 025 ROBERT'S TEST Normal [facility] Comment on above: Performed By: #### A BG ####[facility] ([id number])[address] [place] [address] BASE,DEFICIT 6.0 MMOL/L High 0.0-2.[address] [facility] Comment on above: Performed By: #### A BG ####[facility] ([id number])[address] [place] [address] Body temperature 98.6 [degF] Normal 37.0 [facility] Comment on above: Performed By: #### A BG ####[facility] ([id number])[address] [place] [address] HCO3 (Bld) [Moles/Vol] 17.9 mmol/L Low 22-26 P [facility] Comment on above: Performed By: #### A BG ####[facility] ([id number])[address] [place] [address] INSP. O2 CONC. 40 % Normal [facility] Comment on above: Performed By: #### A BG ####[facility] ([id number])[address] [place] [address] Oxygen (Bld) [Partial pressure] 96 mm[Hg] Normal 80-[address] [facility] Comment on above: Performed By: #### A BG ####[facility] ([id number])[address] [place] [address] Oxygen saturation in Blood 98.0 % Normal >[address] [facility] Comment on above: Performed By: #### A BG ####[facility] ([id number])[address] [place] [address] OXYGEN SOURCE [facility] Comment on above: Performed By: #### A BG ####[facility] ([id number])[address] [place] [address] PCO2 28.0 MMHG Low 35-[address] [facility] Comment on above: Performed By: #### A BG ####[facility] ([id number])[address] [place] [address] pH (Bld) 7.414 [pH] Normal 7.350-7.[address] [facility] Comment on above: Performed By: #### A BG ####[facility] ([id number])[address] [place] [address] SAMPLE SITE [facility] Comment on above: Performed By: #### A BG ####[facility] ([id number])[address] [place] [address] SAMPLE TYPE ARTERIAL Normal [facility] Comment on above: Performed By: #### A BG ####[facility] ([id number])[address] [place] [address] BLOOD CULTUREon 06-15-2024 Bacteria identified Aer cx Nom (Bld) CULTURE RESULTS NO GROWTH 5 DAYS Normal [facility] CBC AND AUTO DIFFon 06-16-19 25 ABSOLUTE BASOPHIL 0.0 X10E9/L Normal 0.0-0.2 [facility] Comment on above: Performed By: #### C MP, LIVR, , 2776-04, CBCA ####[facility] ([id number])[address], [address] [place] [address] ABSOLUTE NEUTROPHIL 2.7 X10E9/L Normal 1.5-6.6 [facility] Comment on above: Performed By: #### C MARY, LIVR, , 2776-04, CBCA ####[facility] ([id number])[address], [address] [place] [address] Basophils/100 WBC (Bld) 1.2 % Normal [facility] [place] Comment on above: Performed By: #### C MP, LIVR, , 2776-04, CBCA ####[facility] ([id number])[address] [address] [place] [address] Eosinophils (Bld) [#/Vol] 0.0 10*3/uL Normal 0.0-0.[address] [facility] Comment on above: Performed By: #### C MARY, LIVR, , 2776-04, CBCA ####[facility] ([id number])[address] [address] [place] [address] Eosinophils/100 WBC (Bld) 0.8 % Normal [facility] Comment on above: Performed By: #### C MP, LIVR, , 2776-04, CBCA ####[facility] ([id number])[address] [address] Erythrocyte distribution width (RBC) [Ratio] 17.3 % High 11.5-15.[address] [facility] Comment on above: Performed By: #### C MP, LIVR, , 2776-04, CBCA ####[facility] ([id number])[address] [address] [place] [address] Hematocrit (Bld) [Volume fraction] 22.1 % Low 35-[address] [facility] Comment on above: Performed By: #### C MARY, LIVR, , 2776-04, CBCA ####[facility] ([id number])[address] [address] [place] [address] Hemoglobin (Bld) [Mass/Vol] 7.6 g/dL Low 11.7-15.[address] [facility] Comment on above: Performed By: #### C MARY, LIVR, , 2776-04, CBCA ####[facility] ([id number])[address] [address] Lymphocytes (Bld) [#/Vol] 0.7 10*3/uL Low 1.0-3.[address] [facility] Comment on above: Performed By: #### C MARY, LIVR, , 2776-04, CBCA ####[facility] ([id number])[address] [address] Lymphocytes/100 WBC (Bld) 19.1 % Normal [facility] Comment on above: Performed By: #### C MARY, LIVR, , 2776-04, CBCA ####[facility] ([id number])[address] [address] [place] [address] MCH (RBC) [Entitic mass] 32.9 pg Normal 27-[address] [facility] Comment on above: Performed By: #### C MP, LIVR, , 2776-04, CBCA ####[facility] ([id number])[address] [address] [place] [address] MCHC (RBC) [Mass/Vol] 34.6 g/dL Normal 32-36 [facility] Comment on above: Performed By: #### C MARY, LIVR, , 2776-04, CBCA ####[facility] ([id number])[address], [address] [place] [address] MCV (RBC) [Entitic vol] 95 fL Normal 80-100 P [facility] Comment on above: Performed By: #### C MP, LIVR, , 2776-04, CBCA ####[facility] ([id number])[address], [address], [place] [address] Monocytes (Bld) [#/Vol] 0.3 10*3/uL Normal 0-0.[address] [facility] Comment on above: Performed By: #### C MARY, LIVR, , 2776-04, CBCA ####[facility] ([id number])[address], [address], [place] [address] Monocytes/100 WBC (Bld) 7.7 % Normal [facility] [place] Comment on above: Performed By: #### C MARY, LIVR, , 2776-04, CBCA ####[facility] ([id number])[address], [address] [place] [address] Neutrophils/100 WBC (Bld) 71.2 % Normal [facility] Comment on above: Performed By: #### C MP, LIVR, , 2776-04, CBCA ####[facility] ([id number])[address], [address] [place] [address] Platelet mean volume (Bld) [Entitic vol] 7.1 fL Normal 7-[address] [facility] Comment on above: Performed By: #### C MP, LIVR, , 2776-04, CBCA ####[facility] ([id number])[address], [address] [place] [address] Platelets (Bld) [#/Vol] 93 10*3/uL Low 150-450 P [facility] Comment on above: Performed By: #### C MP, LIVR, , 2776-04, CBCA ####[facility] ([id number])[address], [address] [address] RBC COUNT 2.32 X10E12/L Low 3.80-5.[address] [facility] Comment on above: Performed By: #### C MARY, LIVR, , 2776-04, CBCA ####[facility] ([id number])[address], [address], [place] [address] WBC (Bld) [#/Vol] 3.8 10*3/uL Low 4.0-11.0 [facility] Comment on above: Performed By: #### C MARY, LIVR, , 2776-04, CBCA ####[facility] ([id number])[address], [address] [address] COMPREHENSIVE METABOLIC PANE Kael 06-15-2024 Albumin [Mass/Vol] 3.3 g/dL Normal 3.2-5.3 [facility] Comment on above: Performed By: #### C MARY, LIVR, , 2776-04, CBCA ####[facility] ([id number])[address], [address] [address] ALP [Catalytic activity/Vol] 80 U/L Normal 39-[address] [facility] Comment on above: Performed By: #### C MP, LIVR, , 2776-04, CBCA ####[facility] ([id number])[address], [address] [place] [address] ALT [Catalytic activity/Vol] 6 U/L Normal 0-[address] [facility] Comment on above: Performed By: #### C MP, LIVR, , 2776-04, CBCA ####[facility] ([id number])[address], [address], [place] [address] Anion gap [Moles/Vol] 12 mmol/L Normal 5-15 [facility] Comment on above: Performed By: #### C MP, LIVR, , 2776-04, CBCA ####[facility] ([id number])[address], [address], [place] [address] AST [Catalytic activity/Vol] 12 U/L Normal 0-[address] [facility] Comment on above: Performed By: #### C MP, LIVR, , 2776-04, CBCA ####[facility] ([id number])[address], [address], [place] [address] Bilirubin [Mass/Vol] 2.0 mg/dL High 0.3-1.2 [facility] Comment on above: Performed By: #### C MARY, LIVR, , 2776-04, CBCA ####[facility] ([id number])[address], [address], [place] [address] Calcium [Mass/Vol] 8.7 mg/dL Normal 8.5-10.5 [facility] Comment on above: Performed By: #### C MP, LIVR, , 2776-04, CBCA ####[facility] ([id number])[address], [address], [place] [address] Chloride [Moles/Vol] 100 mmol/L Normal 98-109 [facility] Comment on above: Performed By: #### C MP, LIVR, , 2776-04, CBCA ####[facility] ([id number])[address], [address], [place] [address] CO2 [Moles/Vol] 22 mmol/L Normal 22-[address] [facility] Comment on above: Performed By: #### C HAMIDA HERNANDEZ, , 2776-04, CBCA ####[facility] ([id number])[address] [address] Creatinine [Mass/Vol] 2.42 mg/dL High 0.40-1.00 [facility] Comment on above: Result Comment: METH OD TRACEABLE TO IDMS STANDARD Performed By: #### C HAMIDA HERNANDEZ, , 2776-04, CBCA ####[facility] ([id number])[address] [address] [address] GFR/1.73 sq M.predicted among non-blacks MDRD (S/P/Bld) [Vol rate/Area] 22 mL/min/{1.73_m2} Low >[address] [facility] Comment on above: Result Comment: Repo rted eGFR is based on theCKD-EPI 2020 equation that doesnot use a race coefficient. Performed By: #### C HAMIAD HERNANDEZ, , 2776-04, CBCA ####[facility] ([id number])[address] [address] [place] [address] Glucose [Mass/Vol] 98 mg/dL Normal 65-99 [facility] Comment on above: Performed By: #### C HAMIDA HERNANDEZ, , 2776-04, CBCA ####[facility] ([id number])[address] [address] [place] [address] Protein [Mass/Vol] 5.1 g/dL Low 6.0-8.0 [facility] Comment on above: Performed By: #### C HAMIDA HERNANDEZ, , 2776-04, CBCA ####[facility] ([id number])[address] [address], [place] [address] Sodium [Moles/Vol] 134 mmol/L Normal 134-146 [facility] Comment on above: Performed By: #### C MARY, LIVR, , 2776-04, CBCA ####[facility] ([id number])[address], [place] [address] Urea nitrogen [Mass/Vol] 29 mg/dL High 5-[address] [facility] Comment on above: Performed By: #### C MARY, LIVR, , 2776-04, CBCA ####[facility] ([id number])[address], [address], [place] [address] ELECTROLYTESon 06-15-2024 CO2 [Moles/Vol] 24 mmol/L Normal 22-[address] [facility] Comment on above: Performed By: #### E LEC, , 2776-04 ####[facility] ([id number])[address], [address], [place] [address] Potassium [Moles/Vol] 3.6 mmol/L Normal 3.5-5.0 [facility] Comment on above: Performed By: #### Cyndie LEC, , 2776-04 ####[facility] ([id number])[address], [address], [place] [address] Sodium [Moles/Vol] 137 mmol/L Normal 134-146 [facility] Comment on above: Performed By: #### E LEC, , 2776-04 ####[facility] ([id number])[address], [place] [address] Anion gap [Moles/Vol] 11 mmol/L Normal 5-15 [facility] Comment on above: Performed By: #### E LEC, , 2776-04 ####[facility] ([id number])[address], [place] [address] Performed By: #### E LEC, , ####[facility] ([id number])[address] [address] Chloride [Moles/Vol] 102 mmol/L Normal 98-109 [facility] Comment on above: Performed By: #### E LEC, , 2776- ####[facility] ([id number])[address] [address] Performed By: #### E LEC, , ####[facility] ([id number])[address] [address] [address] CO2 [Moles/Vol] 23 mmol/L Normal 22-[address] [facility] Comment on above: Performed By: #### E LEC, , ####[facility] ([id number])[address] [address] [address] Sodium [Moles/Vol] 136 mmol/L Normal 134-146 [facility] Comment on above: Performed By: #### E LEC, , ####[facility] ([id number])[address] [address] [address] HGBon 06-15-2024 Hematocrit (Bld) [Volume fraction] 22.7 % Low 35-[address] [facility] Comment on above: Performed By: #### H H ####[facility] ([id number])[address] [address] [address] Hemoglobin (Bld) [Mass/Vol] 7.7 g/dL Low 11.7-15.[address] [facility] Comment on above: Performed By: #### H H ####[facility] ([id number])[address] [address] [address] LIVER PANELon 06-15-2024 Bilirubin.direct [Mass/Vol] 0.9 mg/dL High 0.0-0.[address] [facility] Comment on above: Performed By: #### C MARY, LIVR, , 2776-04, CBCA ####[facility] ([id number])[address] [place] [address] MAGNESIUMon 06-15-2024 Magnesium [Mass/Vol] 1.9 mg/dL Normal 1.8-2.6 [facility] Comment on above: Performed By: #### Cyndie LEC, , 2776-04 ####[facility] ([id number])[address] [address] Performed By: #### C MARY, LIVR, , 2776-04, CBCA ####[facility] ([id number])[address] [place] [address] Magnesium [Mass/Vol] 2.0 mg/dL Normal 1.8-2.6 [facility] Comment on above: Performed By: #### Cyndie LEC, , ####[facility] ([id number])[address] [place] [address] PHOSPHORUSon 06-15-2024 Phosphate [Mass/Vol] 2.2 mg/dL Low 2.4-4.9 [facility] Comment on above: Performed By: #### Cyndie LEC, , 2776-04 ####[facility] ([id number])[address], [place] [address] Phosphate [Mass/Vol] 3.8 mg/dL Normal 2.4-4.9 [facility] Comment on above: Performed By: #### C MP, LIVR, , 2776-04, CBCA ####[facility] ([id number])[address] [place] [address] POTASSIUMon 06-15-2024 Potassium [Moles/Vol] 3.8 mmol/L Normal 3.5-5.0 [facility] Comment on above: Performed By: #### 2 823-3 ####[facility] ([id number])[address] [address] [place] [address] Performed By: #### C MP, LIVR, 60657-4, 2777-, CBCA ####[facility] ([id number])[address] [address] [place] [address] Performed By: #### E LEC, 34381-8, 60928-1 ####[facility] ([id number])[address] [address] [place] [address] PROTIME AND INRon 06-15-2024 PT Coag (PPP) [Time] 15.2 s High 9.8-13.2 [facility] Comment on above: Performed By: #### P INR, 70511-7 ####[facility] ([id number])[address] [address] [place] [address] INR Coag (PPP) [Relative time] 1.3 {INR} High 0.9-1.[address] [facility] Comment on above: Performed By: #### P INR, 62937-2 ####[facility] ([id number])[address] [address] [place] [address], [place] [address] PT Coag (PPP) [Time] 15.3 s High 9.8-13.2 [facility] Comment on above: Performed By: #### P INR, 35375-4 ####[facility] ([id number])[address] [address] [place] [address]898 Vancomycin [Mass/Vol]on VANCOMYCIN 27.0 ug/mL Normal 5.0-40.[address] [facility] Comment on above: Result Comment: Peak 30-40 ug/mLTrough 5-20 ug/ml Performed By: #### 2 0578-1 ####[facility] ([id number])[address], [address] [place] [address]38 VANCOMYCIN 21.4 ug/mL Normal 5.0-40.[address] [facility] Comment on above: Result Comment: Peak 30-40 ug/mLTrough 5-20 ug/ml Performed By: #### E LEC, 35371-0, 78206-6 ####[facility] ([id number])[address], [address] [place] [address]73 XR CHEST 1 VWon 06-15-2024 XR CHEST 1 VW Normal [facility] aPTT Coag (PPP) [Time]on aPTT Coag (Bld) [Time] 38 s High 26-37 Pr [facility] Comment on above: Performed By: #### P INR, 98301-3 ####[facility] ([id number])[address], [address] [place] [address]16 ARTERIAL BLOOD GASon 025 ROBERT'S TEST Pass Normal [facility] Comment on above: Performed By: #### A BG ####[facility] ([id number])[address] [place] [address] BASE,DEFICIT 8.0 MMOL/L High 0.0-2.[address] [facility] Comment on above: Performed By: #### A BG ####[facility] ([id number])[address] [place] [address] Body temperature 98.6 [degF] Normal 37.0 [facility] Comment on above: Performed By: #### A BG ####[facility] ([id number])[address] [place] [address] HCO3 (Bld) [Moles/Vol] 18.8 mmol/L Low 22-26 P [facility] Comment on above: Performed By: #### A BG ####[facility] ([id number])[address] [place] [address] INSP. O2 CONC. 40 % Normal [facility] Comment on above: Performed By: #### A BG ####[facility] ([id number])[address] [place] [address] Oxygen (Bld) [Partial pressure] 118 mm[Hg] High 80-[address] [facility] Comment on above: Performed By: #### A BG ####[facility] ([id number])[address] [place] [address] Oxygen saturation in Blood 98.0 % Normal >[address] [facility] Comment on above: Performed By: #### A BG ####[facility] ([id number])[address] [facility] [place] [address] OXYGEN SOURCE Vent Normal [facility] Comment on above: Performed By: #### A BG ####[facility] ([id number])[address] [facility] [place] [address] PCO2 45.7 MMHG High 35-[address] [facility] Comment on above: Performed By: #### A BG ####[facility] ([id number])[address] [place] [address] pH (Bld) 7.223 [pH] Low 7.350-7.[address] [facility] Comment on above: Performed By: #### A BG ####[facility] ([id number])[address] [place] [address] SAMPLE SITE LRad Normal [facility] Comment on above: Performed By: #### A BG ####[facility] ([id number])[address] [place] [address] SAMPLE TYPE ARTERIAL Normal [facility] Comment on above: Performed By: #### A BG ####[facility] ([id number])2141 [place] [address] BASIC METABOLIC PANLon 06-14 Anion gap [Moles/Vol] 10 mmol/L Normal 5-15 [facility] Comment on above: Performed By: #### B MARY LIVR ####[facility] ([id number])[address] [address] [address] Calcium [Mass/Vol] 8.0 mg/dL Low 8.5-10.5 [facility] Comment on above: Performed By: #### B MARY LIVR ####[facility] ([id number])[address] [address] [address] Chloride [Moles/Vol] 100 mmol/L Normal 98-109 [facility] Comment on above: Performed By: #### B MARY LIVR ####[facility] ([id number])[address] [address] [address] Creatinine [Mass/Vol] 3.64 mg/dL High 0.40-1.00 [facility] Comment on above: Result Comment: METH OD TRACEABLE TO IDMS STANDARD Performed By: #### B MARY, LIVR ####[facility] ([id number])[address] [address] [address] GFR/1.73 sq M.predicted among non-blacks MDRD (S/P/Bld) [Vol rate/Area] 14 mL/min/{1.73_m2} Low >[address] [facility] Comment on above: Result Comment: Repo rted eGFR is based on theCKD-EPI 2020 equation that doesnot use a race coefficient. Performed By: #### B MARY, LIVR ####[facility] ([id number])[address], [place] [address] Glucose [Mass/Vol] 97 mg/dL Normal 65-99 [facility] Comment on above: Performed By: #### B MARY, LIVR ####[facility] ([id number])[address], [address] [place] [place] [address] Potassium [Moles/Vol] 4.8 mmol/L Normal 3.5-5.0 [facility] Comment on above: Performed By: #### B MARY, LIVR ####[facility] ([id number])[address], [address] [place] [place] [address] Sodium [Moles/Vol] 131 mmol/L Low 134-146 [facility] Comment on above: Performed By: #### Greer HERNANDEZ, LIVR ####[facility] ([id number])[address], [place] [address] Urea nitrogen [Mass/Vol] 42 mg/dL High 5-[address] [facility] Comment on above: Performed By: #### Greer HERNANDEZ, LIVR ####[facility] ([id number])[address] [address], [place] [address] CBC AND AUTO DIFFon 06-15-19 25 ABSOLUTE BASOPHIL 0.1 X10E9/L Normal 0.0-0.2 [facility] Comment on above: Performed By: #### C BCA ####[facility] ([id number])[address], [address], [place] [address] ABSOLUTE NEUTROPHIL 4.3 X10E9/L Normal 1.5-6.6 [facility] Comment on above: Performed By: #### C BCA ####[facility] ([id number])[address], [address], [place] [address] Basophils/100 WBC (Bld) 0.9 % Normal [facility] [place] Comment on above: Performed By: #### C BCA ####[facility] ([id number])[address], [address], [place] [address] Eosinophils (Bld) [#/Vol] 0.0 10*3/uL Normal 0.0-0.[address] [facility] Comment on above: Performed By: #### C BCA ####[facility] ([id number])[address] [place] [place] [address] Eosinophils/100 WBC (Bld) 0.1 % Normal [facility] Comment on above: Performed By: #### C BCA ####[facility] ([id number])[address] [address] Erythrocyte distribution width (RBC) [Ratio] 16.9 % High 11.5-15.[address] [facility] Comment on above: Performed By: #### C BCA ####[facility] ([id number])[address] [address] Hematocrit (Bld) [Volume fraction] 23.1 % Low 35-[address] [facility] Comment on above: Performed By: #### C BCA ####[facility] ([id number])[address], [address] [address] Hemoglobin (Bld) [Mass/Vol] 7.5 g/dL Low 11.7-15.[address] [facility] Comment on above: Performed By: #### C BCA ####[facility] ([id number])[address], [address] [address] Lymphocytes (Bld) [#/Vol] 0.6 10*3/uL Low 1.0-3.[address] [facility] Comment on above: Performed By: #### C BCA ####[facility] ([id number])[address], [address], [place] [address] Lymphocytes/100 WBC (Bld) 11.5 % Normal [facility] Comment on above: Performed By: #### C BCA ####[facility] ([id number])[address], [address], [place] [address] MCH (RBC) [Entitic mass] 32.8 pg Normal 27-[address] [facility] Comment on above: Performed By: #### C BCA ####[facility] ([id number])[address], [address], [place] [address] MCHC (RBC) [Mass/Vol] 32.4 g/dL Normal 32-36 [facility] Comment on above: Performed By: #### C BCA ####[facility] ([id number])[address], [address] [address] MCV (RBC) [Entitic vol] 101 fL High 80-100 P [facility] Comment on above: Performed By: #### C BCA ####[facility] ([id number])[address], [address], [place] [address] Monocytes (Bld) [#/Vol] 0.4 10*3/uL Normal 0-0.[address] [facility] Comment on above: Performed By: #### C BCA ####[facility] ([id number])[address] [address] Monocytes/100 WBC (Bld) 6.8 % Normal P [facility] Comment on above: Performed By: #### C BCA ####[facility] ([id number])[address], [place] [address] Neutrophils/100 WBC (Bld) 80.7 % Normal [facility] Comment on above: Performed By: #### C BCA ####[facility] ([id number])[address], [address] [address] Platelet mean volume (Bld) [Entitic vol] 7.2 fL Normal 7-[address] [facility] Comment on above: Performed By: #### C BCA ####[facility] ([id number])[address], [place] [address] Platelets (Bld) [#/Vol] 148 10*3/uL Low 150-[address] [facility] Comment on above: Performed By: #### C BCA ####[facility] ([id number])[address] [address] RBC COUNT 2.28 X10E12/L Low 3.80-5.[address] [facility] Comment on above: Performed By: #### C BCA ####[facility] ([id number])[address] [address] [address] WBC (Bld) [#/Vol] 5.3 10*3/uL Normal 4.0-11.0 [facility] Comment on above: Performed By: #### C BCA ####[facility] ([id number])[address] [place] [address], [place] [address] ABSOLUTE BASOPHIL 0.0 X10E9/L Normal 0.0-0.2 [facility] Comment on above: Performed By: #### C BCA, CMP, 95880-2, 2777-1, TSHR, 3024-7, 5196-1, 5193-8, 4679-7, 77177-8 ####[facility] ([id number])[address], [address] [place] [address] ABSOLUTE NEUTROPHIL 3.8 X10E9/L Normal 1.5-6.6 [facility] Comment on above: Performed By: #### C BCA, CMP, 05800-7, 2777-1, TSHR, 3024-7, 5196-1, 5193-8, 4679-7, 82213-8 ####[facility] ([id number])[address], [address], [place] [address] Basophils/100 WBC (Bld) 0.7 % Normal [facility] [place] Comment on above: Performed By: #### C BCA, CMP, 67354-3, 7-1, TSHR, 3024-7, 5196-1, 5193-8, 4679-7, 33420-2 ####[facility] ([id number])[address], [address] [place] [address] Eosinophils (Bld) [#/Vol] 0.0 10*3/uL Normal 0.0-0.[address] [facility] Comment on above: Performed By: #### C BCA, CMP, 46611-2, 2777-1, TSHR, 3024-7, 5196-1, 5193-8, 4679-7, 78014-3 ####[facility] ([id number])[address], [address], [place] [address] Eosinophils/100 WBC (Bld) 0.3 % Normal [facility] Comment on above: Performed By: #### C BCA, CMP, 72899-9, 2777-1, TSHR, 3024-7, 5196-1, 5193-8, 4679-7, 07984-9 ####[facility] ([id number])[address], [address] [address] Erythrocyte distribution width (RBC) [Ratio] 16.8 % High 11.5-15.[address] [facility] Comment on above: Performed By: #### C BCA, CMP, 50983-1, 2777-1, TSHR, 3024-7, 5196-1, 5193-8, 4679-7, 36126-8 ####[facility] ([id number])[address], [address] [place] [place] [address] Hematocrit (Bld) [Volume fraction] 23.6 % Low 35-[address] [facility] Comment on above: Performed By: #### C BCA, CMP, 20133-1, 2777-1, TSHR, 3024-7, 5196-1, 5193-8, 4679-7, 70749-0 ####[facility] ([id number])[address], [address], [place] [address] Hemoglobin (Bld) [Mass/Vol] 7.6 g/dL Low 11.7-15.[address] [facility] Comment on above: Performed By: #### C BCA, CMP, 45237-2, 2777-1, TSHR, 3024-7, 5196-1, 5193-8, 4679-7, 08361-8 ####[facility] ([id number])[address], [address], [place] [address] Lymphocytes (Bld) [#/Vol] 0.5 10*3/uL Low 1.0-3.[address] [facility] Comment on above: Performed By: #### C BCA, CMP, 63561-6, 2777-1, TSHR, 3024-7, 5196-1, 5193-8, 4679-7, 89445-6 ####[facility] ([id number])[address] [address], [place] [address] Lymphocytes/100 WBC (Bld) 9.8 % Normal [facility] Comment on above: Performed By: #### C BCA, CMP, 79369-2, 2777-1, TSHR, 3024-7, 5196-1, 5193-8, 4679-7, 10844-5 ####[facility] ([id number])[address], [address] [place] [address] MCH (RBC) [Entitic mass] 32.7 pg Normal 27-[address] [facility] Comment on above: Performed By: #### C BCA, CMP, 86256-2, 2777-1, TSHR, 3024-7, 5196-1, 5193-8, 4679-7, 43195-5 ####[facility] ([id number])[address], [address] [place] [address] MCHC (RBC) [Mass/Vol] 32.0 g/dL Normal 32-36 [facility] Comment on above: Performed By: #### C BCA, CMP, 51446-8, 2777-1, TSHR, 3024-7, 5196-1, 5193-8, 4679-7, 59702-0 ####[facility] ([id number])[address] [place] [address] MCV (RBC) [Entitic vol] 102 fL High 80-100 P [facility] Comment on above: Performed By: #### C BCA, CMP, 16731-9, 2777-1, TSHR, 3024-7, 5196-1, 5193-8, 4679-7, 21978-8 ####[facility] ([id number])[address] [place] [address] Monocytes (Bld) [#/Vol] 0.4 10*3/uL Normal 0-0.[address] [facility] Comment on above: Performed By: #### C BCA, CMP, 09528-3, 2777-1, TSHR, 3024-7, 5196-1, 5193-8, 4679-7, 33212-0 ####[facility] ([id number])[address] [address] [address] Monocytes/100 WBC (Bld) 9.1 % Normal P [facility] Comment on above: Performed By: #### C BCA, CMP, 13419-9, 2777-1, TSHR, 3024-7, 5196-1, 5193-8, 4679-7, 46087-4 ####[facility] ([id number])[address], [place] [address] Neutrophils/100 WBC (Bld) 80.1 % Normal [facility] Comment on above: Performed By: #### C BCA, CMP, 59913-8, 2777-1, TSHR, 3024-7, 5196-1, 5193-8, 4679-7, 91244-4 ####[facility] ([id number])[address], [address], [place] [address] Platelet mean volume (Bld) [Entitic vol] 7.3 fL Normal 7-[address] [facility] Comment on above: Performed By: #### C BCA, CMP, 54785-9, 2777-1, TSHR, 3024-7, 5196-1, 5193-8, 4679-7, 15642-6 ####[facility] ([id number])[address], [address] [place] [address] Platelets (Bld) [#/Vol] 138 10*3/uL Low 150-[address] [facility] Comment on above: Performed By: #### C BCA, CMP, 43430-6, 2777-1, TSHR, 3024-7, 5196-1, 5193-8, 4679-7, 97018-2 ####[facility] ([id number])[address] [address] RBC COUNT 2.31 X10E12/L Low 3.80-5.[address] [facility] Comment on above: Performed By: #### C BCA, CMP, 43954-4, 2777-1, TSHR, 3024-7, 5196-1, 5193-8, 4679-7, 21653-7 ####[facility] ([id number])[address], [address], [place] [address] WBC (Bld) [#/Vol] 4.8 10*3/uL Normal 4.0-11.0 [facility] Comment on above: Performed By: #### C BCA, CMP, 91204-8, 2777-1, TSHR, 3024-7, 5196-1, 5193-8, 4679-7, 85489-5 ####[facility] ([id number])[address] [place] [address] COMPLEMENT PROFILEon 025 COMPLEMENT C3 69 mg/dL Low 86-[address] [facility] Comment on above: Performed By: #### [address], [place], [place], [address]-9, 27275-6 ####[facility] ([id number])[address] [address] COMPLEMENT C4 13 mg/dL Low 16-[address] [facility] Comment on above: Performed By: #### [address], [place], [place], 14566-5, 31413-1 ####[facility] ([id number])[address] [place] [address] COMPREHENSIVE METABOLIC PANE Kael 06-14-2024 Albumin [Mass/Vol] 3.1 g/dL Low 3.2-5.3 [facility] Comment on above: Performed By: #### C BCA, CMP, 87635-6, 2777-1, TSHR, 3024-7, 5196-1, 5193-8, 4679-7, 97873-5 ####[facility] ([id number])[address] [address] ALP [Catalytic activity/Vol] 119 U/L Normal 39-[address] [facility] Comment on above: Performed By: #### C BCA, CMP, 97875-8, 2777-1, TSHR, 3024-7, 5196-1, 5193-8, 4679-7, 57112-3 ####[facility] ([id number])[address], [place] [address] ALT [Catalytic activity/Vol] 6 U/L Normal 0-[address] [facility] Comment on above: Performed By: #### C BCA, CMP, 56623-0, 2777-1, TSHR, 3024-7, 5196-1, 5193-8, 4679-7, 00486-2 ####[facility] ([id number])[address], [place] [address] Anion gap [Moles/Vol] 10 mmol/L Normal 5-15 [facility] Comment on above: Performed By: #### C BCA, CMP, 12529-6, 2777-1, TSHR, 3024-7, 5196-1, 5193-8, 4679-7, 04568-5 ####[facility] ([id number])[address], [address], [place] [address] AST [Catalytic activity/Vol] 12 U/L Normal 0-[address] [facility] Comment on above: Performed By: #### C BCA, CMP, 28169-1, 2777-1, TSHR, 3024-7, 5196-1, 5193-8, 4679-7, 49025-8 ####[facility] ([id number])[address], [place] [address] Bilirubin [Mass/Vol] 0.8 mg/dL Normal 0.3-1.2 [facility] Comment on above: Performed By: #### C BCA, CMP, 55497-8, 2777-1, TSHR, 3024-7, 5196-1, 5193-8, 4679-7, 04846-3 ####[facility] ([id number])[address], [place] [address] Calcium [Mass/Vol] 7.9 mg/dL Low 8.5-10.5 [facility] Comment on above: Performed By: #### C BCA, CMP, 15519-7, 2777-1, TSHR, 3024-7, 5196-1, 5193-8, 4679-7, 42131-1 ####[facility] ([id number])[address], [place] [address] Chloride [Moles/Vol] 98 mmol/L Normal 98-109 [facility] Comment on above: Performed By: #### C BCA, CMP, 15953-0, 2777-1, TSHR, 3024-7, 5196-1, 5193-8, 4679-7, 07911-0 ####[facility] ([id number])[address], [address] [place] [address] CO2 [Moles/Vol] 20 mmol/L Low 22-[address] [facility] Comment on above: Performed By: #### C BCA, CMP, 91745-7, 2777-1, TSHR, 3024-7, 5196-1, 5193-8, 4679-7, 47026-0 ####[facility] ([id number])[address], [address] [place] [address] Creatinine [Mass/Vol] 3.45 mg/dL High 0.40-1.00 [facility] Comment on above: Result Comment: METH OD TRACEABLE TO IDMS STANDARD Performed By: #### C BCA, CMP, 36449-6, 2777-1, TSHR, 3024-7, 5196-1, 5193-8, 4679-7, 37051-6 ####[facility] ([id number])[address], [place] [address] GFR/1.73 sq M.predicted among non-blacks MDRD (S/P/Bld) [Vol rate/Area] 15 mL/min/{1.73_m2} Low >[address] [facility] Comment on above: Result Comment: Repo rted eGFR is based on theCKD-EPI 2020 equation that doesnot use a race coefficient. Performed By: #### C BCA, CMP, 03311-6, 2777-1, TSHR, 3024-7, 5196-1, 5193-8, 4679-7, 04736-1 ####[facility] ([id number])[address], [place] [address] Glucose [Mass/Vol] 91 mg/dL Normal 65-99 [facility] Comment on above: Performed By: #### C BCA, CMP, 73523-5, 7-1, TSHR, 3024-7, 5196-1, 5193-8, 4679-7, 01730-5 ####[facility] ([id number])[address], [place] [address] Potassium [Moles/Vol] 4.7 mmol/L Normal 3.5-5.0 [facility] Comment on above: Performed By: #### C BCA, CMP, 99155-0, 7-1, TSHR, 3024-7, 5196-1, 5193-8, 4679-7, 52886-0 ####[facility] ([id number])[address], [place] [address] Protein [Mass/Vol] 5.9 g/dL Low 6.0-8.0 [facility] Comment on above: Performed By: #### C BCA, CMP, 53584-6, 2777-1, TSHR, 3024-7, 5196-1, 5193-8, 4679-7, 13105-2 ####[facility] ([id number])[address], [place] [address] Sodium [Moles/Vol] 128 mmol/L Low 134-146 [facility] Comment on above: Performed By: #### C BCA, CMP, 46896-4, 2777-1, TSHR, 3024-7, 5196-1, 5193-8, 4679-7, 43431-1 ####[facility] ([id number])[address] [place] [address], [address] [place], [place] [id number] Urea nitrogen [Mass/Vol] 43 mg/dL High 5-[address] [facility] Comment on above: Performed By: #### C BCA, CMP, 58359-1, 2777-1, TSHR, 3024-7, 5196-1, 5193-8, 4679-7, 68214-3 ####[facility] ([id number])[address] [place] [address], [address] [place] [address] CT ABDOMEN AND PELVIS WO CON Ton 06-14-2024 CT ABDOMEN AND PELVIS WO CONT Normal [facility] CT CHEST WO CONTon CT CHEST WO CONT Normal [facility] CT NECK SOFT TISSUE WO CONTo n 06-14-2024 CT NECK SOFT TISSUE WO CONT Normal [facility] Clinical Pathologyon 025 Clinical Pathology Normal [facility] Comment on above: Result Comment: [facility] [address] [place] [address] Clinical Pathology ReportPatient Name:ORESTES ALVARES:1965 (Age: 59)Gender:FTaken:06/14/2024Reported:06/17/2024Physician(s):Janice Yu M.D. ([phone])Copy To: Rec. #:[id number]: #[id number] Pathologic DiagnosisMonoclonal protein in gamma region, 0.2 g/dL, IgG kappa.Mild hypoalbuminemia. Report Electronically Signed Outdf/06/17/2024Eben Pappas MDInterpretation performed at [facility], [address] [place] [address], License number: [id number].Clinical NxdnqviZ93.91, J96.01, J96.00.SERUM PROTEIN ELECTROPHORESISSAMPLE NO: [id number] FRACTION CONCENTRATIONS (g/dL) PATIENT REFERENCE RANGEAlbumin 3.2 L 3.4 - 5.3Alpha-1 globulin 0.4 0.1 - 0.4Alpha-2 globulin 0.5 0.4 - 1.1Beta globulin 0.9 0.5 - 1.2Gamma globulin 1.0 0.5 - 1.61 0.2Total protein 6.0 6.0 - 8.0(Electrophoretic gels and densitometric tracings on file in lab.)SERUM IEPIMMUNOGLOBULIN LEVELS (mg/dL): IgG : 1039 IgA : 568 IgM : 162 [place]: 22.41 Free Lambda: 13.82 [place]/Lambda ratio: 1.62Specimen(s) Received1: Serum Protein Electrophoresis2: Serum IEPFee Codes(s):1; 86177-519; 65730-35 Result Comment: [facility] [address] [place] [address] Clinical Pathology ReportPatient Name:ORESTES ALVARES:1965 (Age: 59)Gender:FTaken:06/14/2024Reported:06/17/2024Physician(s):Janice Yu M.D. ([phone])Copy To: Rec. #:[id number]: #[id number] Pathologic DiagnosisSerum like pattern suggestive of non-selective proteinuria.No monoclonal protein identified. Report Electronically Signed Outdf/06/17/2024Eben Pappas MDInterpretation [place] [address], License number: [id number].Clinical BlnazuzO58.91, J96.01, J96.00.URINE PROTEIN ELECTROPHORESISSAMPLE NUMBER: [id number] ELECTROPHORETIC CONCENTRATIONS (%) ? 100.0 Urine Protein 820 mg/L(Electrophoretic gels and densitometric tracings on file in lab.)Specimen(s) Received Urine Protein ElectrophoresisFee Codes(s):1; 36549-09 Clinical Pathology Blood Sme ar Reviewon 06-14-2024 Clinical Pathology Blood Smear Review Normal [facility] Comment on above: Result Comment: [facility] [address] [place] [address] Clinical Pathology ReportPatient Name:ORESTES ALVARES:1965 (Age: 59)Gender:FTaken:06/14/2024Reported:06/19/2024Physician(s):[facility] To: Rec. #:[id number]: #[id number] Pathologic DiagnosisPeripheral smear review:- Marked macrocytic anemia and borderline thrombocytopenia C/W liver diseaseCommentThe CBC and smear review is significant for mild lymphopenia with normal morphology, marked macrocytic anemia with no anisocytosis and borderline thrombocytopenia with small forms and no clumps.Features of myelodysplastic neoplasm (MDS), megaloblastic, iron deficiency and hemolytic anemia or anemia of chronic kidney disease are not seen. Therefore, the anemia, lymphopenia and thrombocytopenia are probably secondary to alcoholic liver disease. Clinical correlation is appreciated. Report Electronically Signed Outduvall/06/19/2024Jamar Hammond MDInterpretation performed at [facility], [address] [place] [address], License number: [id number].Clinical History___BLOOD SMEAR EVALUATIONCBC (06/14/2024 0245): WBC: 4.8 x 109/L RBC: 2.31 x 1012/L Hgb: 7.6 g/dL MCV: 102 fL RDW: 16.8 Platelets: 138 x 109/LAutomated differential: Neutrophils: 3.8 x 109/L Lymphs: 0.5 x 109/L Monos: 0.4 x 109/L Eos: 0.0 x 109/L Basos: 0.0 x 109/LOther lab data: N/ABlood smear:WBC: NormalRBC: Marked macrocytic anemia with mild anisocytosisPlatelets: Borderline thrombocytopenia with small forms and no clumpsSpecimen(s) Received Blood Smear ReviewFee Codes(s):1; 98746 ELECTROLYTESon 06-14-2024 Anion gap [Moles/Vol] 13 mmol/L Normal 5-15 [facility] Comment on above: Performed By: #### E LEC, , 2776-04 ####[facility] ([id number])[address], [address] [address] Potassium [Moles/Vol] 4.0 mmol/L Normal 3.5-5.0 [facility] Comment on above: Performed By: #### E LEC, , 2776-04 ####[facility] ([id number])[address], [address] [address] Sodium [Moles/Vol] 135 mmol/L Normal 134-146 [facility] Comment on above: Performed By: #### E LEC, , 2776-04 ####[facility] ([id number])[address], [address] [place] [place] [address] Anion gap [Moles/Vol] 12 mmol/L Normal 5-15 [facility] Comment on above: Performed By: #### P INR, HH, ELEC, , 2776-04 ####[facility] ([id number])[address], [address] [address] Chloride [Moles/Vol] 101 mmol/L Normal 98-109 [facility] Comment on above: Performed By: #### E LEC, , 2776-04 ####[facility] ([id number])[address], [address], [place] [address] Performed By: #### P INR, HH, ELEC, , 2776-04 ####[facility] ([id number])[address], [address], [place] [address] CO2 [Moles/Vol] 20 mmol/L Low 22-[address] [facility] Comment on above: Performed By: #### P INR, HH, ELEC, , 2776-04 ####[facility] ([id number])[address], [address] [place] [address] Potassium [Moles/Vol] 4.3 mmol/L Normal 3.5-5.0 [facility] Comment on above: Performed By: #### P INR, HH, ELEC, , 2776-04 ####[facility] ([id number])[address], [address] [place] [address] Sodium [Moles/Vol] 133 mmol/L Low 134-146 [facility] Comment on above: Performed By: #### P INR, HH, ELEC, , 2776-04 ####[facility] ([id number])[address], [address] [place] [address] CO2 [Moles/Vol] 21 mmol/L Low 22-[address] [facility] Comment on above: Performed By: #### E LEC, , 2776-04 ####[facility] ([id number])[address], [address] [place] [address] Performed By: #### B MP, LIVR ####[facility] ([id number])[address], [address] [place] [address] FERRITINon 06-14-2024 Ferritin [Mass/Vol] 42 ng/mL Normal 11-307 [facility] Comment on above: Performed By: #### F EPR, 2276-4, 16259-6, TSHR, 2284-8, 2132-9, 3024-7, 2532-0 ####[facility] ([id number])[address], [address] [place] [address] FREE LIGHT CHAINSon 06-15-19 25 FREE POONAM/LAMBD RATIO 1.62 Normal 0.26-1.65 [facility] Comment on above: Performed By: #### [address], SIFE, SPE, 96190-1, 51413-2 ####[facility] ([id number])[address], [address] [address] FREE KAPPA LT CHAINS 22.41 mg/dL High 0.33-1.94 [facility] Comment on above: Performed By: #### C [address], SIFE, SPE, 42594-6, 18885-5 ####[facility] ([id number])[address], [address] [address] FREE LAMBDA LT CHAINS 13.82 mg/dL High 0.57-2.63 Pr [facility] Comment on above: Performed By: #### C [address], SIFE, SPE, 80007-9, 40056-9 ####[facility] ([id number])[address], [address] [address] FREE T4on 06-14-2024 Free T4 [Mass/Vol] 0.58 ng/dL Low 0.61-1.60 [facility] Comment on above: Performed By: #### F EPR, 2276-4, 82454-6, TSHR, 2284-8, 2132-9, 3024-7, 2532-0 ####[facility] ([id number])[address], [address] [place] [address], [place] [address] Free T4 [Mass/Vol] 0.50 ng/dL Low 0.61-1.60 [facility] Comment on above: Performed By: #### C BCA, CMP, 76780-2, 2777-1, TSHR, 3024-7, 5196-1, 5193-8, 4679-7, 07834-4 ####[facility] ([id number])[address], [address] [address] Folate [Mass/Vol]on 06-15-19 25 FOLIC ACID 11.1 ng/mL Normal >5.[address] [facility] Comment on above: Result Comment: NEW REFERENCE RANGE Performed By: #### F EPR, 2276-4, 08586-1, TSHR, 2284-8, 2132-9, 3024-7, 2532-0 ####[facility] ([id number])[address], [address] [place] [address] Glomerular basement membrane IgG Qn (S)on 06-14-2024 GBM IgG Ab <0.2 Normal <1.[address] [facility] Comment on above: Performed By: #### [address], S[place], SPE, 80090-4, 92042-1 ####[facility] ([id number])[address], [address] [place] [address] HBV core Ab IA Qlon 06-15-19 25 ANTI HBc Reactive Abnormal NRCT [facility] Comment on above: Result Comment: NEW TEST METHOD Performed By: #### C BCA, CMP, 73141-8, 2777-1, TSHR, 3024-7, 5196-1, 5193-8, 4679-7, 80469-2 ####[facility] ([id number])[address], [address] [place] [address] HBV surface Ab IA Qnon 06-14 Anti HBs quant. <3.[address] [facility] Comment on above: Result Comment: NOTE Vaccinated: >=10.00 mIU/mL, Positive (Immune)Unvaccinated: <10.00 mIU/mL, Negative (Not Immune)Interpretive values have changed due to implementation of anew method. Values run higher than previous method. Performed By: #### C BCA, CMP, 85019-8, 2777-1, TSHR, 3024-7, 5196-1, 5193-8, 4679-7, 54331-6 ####[facility] ([id number])[address], [address], [place] [address] HBV surface Ag IA Qlon 06-14 HEPATITIS B SURF AG Non-Reactive Normal NRCT [facility] Comment on above: Result Comment: NEW TEST METHOD Performed By: #### C BCA, CMP, 49672-8, 2776-, TSHR, 3024-7, 5196-1, 5193-8, 4679-7, 66718-7 ####[facility] ([id number])[address], [address] [place] [address] HGBon 06-14-2024 Hematocrit (Bld) [Volume fraction] 21.1 % Low 35-[address] [facility] Comment on above: Performed By: #### P INR, HH, ELEC, , 2776-04 ####[facility] ([id number])[address], [address] [place] [address] Hemoglobin (Bld) [Mass/Vol] 6.9 g/dL Critically low 11.7-15.[address] [facility] Comment on above: Performed By: #### P INR, HH, ELEC, , 2776-04 ####[facility] ([id number])[address], [address] [place] [address] Haptoglobin Nephelometry [Ma ss/Vol]on 06-14-2024 HAPTOGLOBIN 84 mg/dL Normal 32-[address] [facility] Comment on above: Performed By: #### F EPR, 2276-4, 38115-7, TSHR, 2284-8, 2-9, 3024-7, 2532-0 ####[facility] ([id number])[address], [address] [place] [address] IRON PROFILEon 06-14-2024 Iron [Mass/Vol] 118 ug/dL Normal 50-[address] [facility] Comment on above: Performed By: #### F EPR, 2276-4, 16064-6, TSHR, 2284-8, 2132-9, 3024-7, 2532-0 ####[facility] ([id number])[address], [address] [address] IRON BINDING 272 ug/dL Normal 250-[address] [facility] Comment on above: Performed By: #### F EPR, 2276-4, 41904-2, TSHR, 2284-8, 2132-9, 3024-7, 2532-0 ####[facility] ([id number])[address], [address] [address] IRON SATURATION 43 % SATURATION Normal 15-50 [facility] Comment on above: Performed By: #### F EPR, 2276-4, 60593-9, TSHR, 2284-8, 2132-9, 3024-7, 2532-0 ####[facility] ([id number])[address], [address] [address] LDH [Catalytic activity/Vol] on 06-14-2024 LDH 127 U/L Normal 100-[address] [facility] Comment on above: Performed By: #### F EPR, 2276-4, 68166-9, TSHR, 2284-8, 2132-9, 3024-7, 2532-0 ####[facility] ([id number])[address], [address] [place] [address] LIVER PANELon 06-14-2024 Albumin [Mass/Vol] 3.2 g/dL Low 3.4-5.3 [facility] Comment on above: Performed By: #### B MP, LIVR ####[facility] ([id number])[address], [address] [address] Performed By: #### [address], [place], [place], 87559-7, 60961-4 ####[facility] ([id number])[address], [address] [place] [address] ALP [Catalytic activity/Vol] 110 U/L Normal 39-[address] [facility] Comment on above: Performed By: #### Greer HERNANDEZ, LIVR ####[facility] ([id number])[address], [address], [place] [address] ALT [Catalytic activity/Vol] 4 U/L Normal 0-[address] [facility] Comment on above: Performed By: #### Greer HERNANDEZ, LIVR ####[facility] ([id number])[address], [address], [place] [address] AST [Catalytic activity/Vol] 12 U/L Normal 0-[address] [facility] Comment on above: Performed By: #### Greer HERNANDEZ LIVR ####[facility] ([id number])[address], [address], [place] [address] Bilirubin [Mass/Vol] 0.8 mg/dL Normal 0.3-1.2 [facility] Comment on above: Performed By: #### Greer HERNANDEZ, LIVR ####[facility] ([id number])[address], [address] [place] [address] Bilirubin.direct [Mass/Vol] 0.4 mg/dL Normal 0.0-0.[address] [facility] Comment on above: Performed By: #### Greer HERNANDEZ, LIVR ####[facility] ([id number])[address], [address], [place] [address] Protein [Mass/Vol] 5.7 g/dL Low 6.0-8.0 [facility] Comment on above: Performed By: #### Greer HERNANDEZ, LIVR ####[facility] ([id number])[address], [address], [place] [address] LOWER RESPIRATORY CULTUREon 06-14-2024 Bacteria identified Respiratory culture Nom (Sput) GRAM STAIN 0 WHITE BLOOD CELLS/LPF 0 SQUAMOUS EPITHELIAL CELLS/LPF 0 CILIATED EPITHELIAL CELLS/LPF NO ORGANISMS SEEN CULTURE RESULTS NORMAL ORAL JEET Normal [facility] Comment on above: Performed By: #### 6 24-7 ####[facility] ([id number])[address], [address] [address] MAGNESIUMon 06-14-2024 Magnesium [Mass/Vol] 2.1 mg/dL Normal 1.8-2.6 [facility] Comment on above: Performed By: #### E LEC, , 2776-04 ####[facility] ([id number])[address], [address] [place] [address] Magnesium [Mass/Vol] 1.7 mg/dL Low 1.8-2.6 [facility] Comment on above: Performed By: #### P INR, HH, ELEC, , 2776-04 ####[facility] ([id number])[address] [address] [place] [address] Magnesium [Mass/Vol] 3.5 mg/dL High 1.8-2.6 [facility] Comment on above: Performed By: #### C BCA, CMP, , 2776-04, TSHR, 3024-7, 5196-1, 5193-8, 4679-7, 02699-7 ####[facility] ([id number])[address] [address] [place] [address] Magnesium Ionized ISE (Bld) [Moles/Vol]on 06-14-2024 Magnesium [Moles/Vol] 0.54 mmol/L Normal 0.45-0.74 [facility] Comment on above: Result Comment: NEW REFERENCE RANGE Performed By: #### 7 3572-0 ####[facility] ([id number])[address] [address] [place] [address] Neutrophil cytoplasmic Ab pa victor hugo IF (S)on 06-14-2024 c-ANCA Negative Normal Negative [facility] Comment on above: Performed By: #### [address], [place], [place], 96385-9, 79919-3 ####[facility] ([id number])[address] [address] [place] [address] p-ANCA Negative Normal Negative [facility] Comment on above: Result Comment: NOTE Negative for cANCA and pANCA patterns by immunofluorescence. ADDITIONAL INFORMATION This test was developed and its performance characteristicsdetermined by [facility] in a manner consistent with CLIArequirements. This test has not been cleared or approved bythe U.S. Food and Drug Administration.Test Performed by:[address] [address]Lji Director: Alan Boothe Ph.D.; CLIA# [id number] Performed By: #### [address], [place], [place], 39747-1, 99400-9 ####[facility] ([id number])[address] [address] Nuclear Ab IA Ql (S)on 06-14 MATY Screen w/reflex Negative Normal NEG [facility] Comment on above: Result Comment: Test ing performed using multiplex flowimmunoassay. Eleven different antigensassociated with systemic autoimmunediseases (dsDNA,Sm,Sm/BULB ASSEMBLER,BULB ASSEMBLER,Chromatin,SSA,SSB,Keesha-1,Scl70,Ribo P,Centromere B)are included in this screening test. Performed By: #### Bertha Enriquez, [place], SPE, 39769-9, 50086-0 ####[facility] ([id number])[address] [address] [place] [address], [place] [address] PHOSPHORUSon 06-14-2024 Phosphate [Mass/Vol] 5.1 mg/dL High 2.4-4.9 [facility] Comment on above: Performed By: #### Cyndie LEC, 15741-1, 2777-1 ####[facility] ([id number])[address] [address] [place] [address] Phosphate [Mass/Vol] 6.2 mg/dL High 2.4-4.9 [facility] Comment on above: Performed By: #### P INR, HH, ELEC, 11061-8, 2776-1 ####[facility] ([id number])[address], [address] [place] [address] Phosphate [Mass/Vol] 7.0 mg/dL High 2.4-4.9 [facility] Comment on above: Performed By: #### C BCA, CMP, , 2776-, TSHR, 3024-7, 5196-1, 5193-8, 4679-7, 50687-4 ####[facility] ([id number])[address] [place] [address] PROTEIN CREAT RATIOon 2024 RANDOM URINE PROTEIN 860 mg/L High <120 [facility] Comment on above: Performed By: #### U A, UPCR ####[facility] ([id number])[address], [address] [place] [address] U/PRO/IT SYSTEMS ANALYST CONSULTANT RATIO CALC 2.20 High <0.2 [facility] Comment on above: Result Comment: Neph rotic Syndrome is associated with ratios >3.5 Performed By: #### U A, UPCR ####[facility] ([id number])[address], [address] [place] [address] URINE CREATININE,RDM 39.08 mg/dL Normal [facility] Comment on above: Performed By: #### U A, UPCR ####[facility] ([id number])[address] [address] [place] [address] PROTIME AND INRon 06-14-2024 PT Coag (PPP) [Time] 17.0 s High 9.8-13.2 [facility] Comment on above: Performed By: #### P INR, 47415-5 ####[facility] ([id number])[address], [address] [place] [address]342 INR Coag (PPP) [Relative time] 1.5 {INR} High 0.9-1.[address] [facility] Comment on above: Performed By: #### P INR, 80295-0 ####[facility] ([id number])[address] [address] [place] [address] Performed By: #### P INR, HH, ELEC, 50610-3, 2777-1 ####[facility] ([id number])[address], [address] [place] [address]06 PT Coag (PPP) [Time] 16.7 s High 9.8-13.2 [facility] Comment on above: Performed By: #### P INR, HH, ELEC, , 2777-1 ####[facility] ([id number])[address] [address] [address] comment (Bld) [Interp]on 06-14-2024 STAFF REVIEW NOTE Normal [facility] Comment on above: Result Comment: [facility] [address] [place] [address] Clinical Pathology ReportPatient Name:ORESTES ALVARES:1965 (Age:59)Gender:FTaken:06/14/2024Reported:06/19/2024Physician(s): Vernell Tracey To: Rec. #:[id number]:#[id number] Pathologic DiagnosisPeripheral smear review:- Marked macrocytic anemia and borderline thrombocytopenia C/W liverdiseaseCommentThe CBC and smear review is significant for mild lymphopenia withnormal morphology, marked macrocytic anemia with no anisocytosis andborderline thrombocytopenia with small forms and no clumps.Features of myelodysplastic neoplasm (MDS), megaloblastic, irondeficiency and hemolytic anemia or anemia of chronic kidney diseaseare not seen. Therefore, the anemia, lymphopenia andthrombocytopenia are probably secondary to alcoholic liver disease.Clinical correlation is appreciated. Report Electronically Signed Outduvall/06/19/2024Jamar Hammond MDInterpretation performed at [facility], [address] [place] [address], License number: [id number].Clinical History___BLOOD SMEAR EVALUATIONCBC (06/14/2024 0245): WBC: 4.8 x 109/L RBC: 2.31 x 1012/L Hgb: 7.6g/dL MCV: 102 fL RDW: 16.8 Platelets: 138 x 109/LAutomated differential: Neutrophils: 3.8 x 109/L Lymphs: 0.5 x109/L Monos: 0.4 x 109/L Eos: 0.0 x 109/L Basos: 0.0 x 109/LOther lab data: N/ABlood smear:WBC: NormalRBC: Marked macrocytic anemia with mild anisocytosisPlatelets: Borderline thrombocytopenia with small forms and no clumpsSpecimen(s) ReceivedBlood Smear ReviewFee Codes(s):1; 18587 Reticulocytes/100 RBC (Bld)o n 06-14-2024 RETICULOCYTE COUNT 2.2 % Normal 0.4-2.2 [facility] Comment on above: Performed By: #### C BCA, CMP, 50709-3, 2777-1, TSHR, 3024-7, 5196-1, 5193-8, 4679-7, 26365-4 ####[facility] ([id number])[facility], [address] [place] [address] SERUM IMMUNOFIXATIONon 06-14 IgA [Mass/Vol] 568 mg/dL High 68-[address] [facility] Comment on above: Performed By: #### [address], [place], [place], 08369-3, 76645-6 ####[facility] ([id number])Critical access hospital [facility], [address] [place] [address] IgG [Mass/Vol] 1039 mg/dL Normal 635-[address] [facility] Comment on above: Performed By: #### [address], [place], [place], 65493-7, 83331-2 ####[facility] ([id number])[address], [address] [place] [address] IgM [Mass/Vol] 162 mg/dL Normal 45-[address] [facility] Comment on above: Performed By: #### [address], [place], [place], 02251-1, 39470-2 ####[facility] ([id number])[address] [address] IMMUNE PROFILE INTERP SEE SEPARATE REPORT Normal [facility] Comment on above: Performed By: #### Bertha Enriquez, [place], [place], 77379-2, 35434-5 ####[facility] ([id number])[address] [address] SERUM PROTEIN ELECTROPHORESI Son 06-14-2024 ALPHA 1 GLOBULIN 0.4 g/dL Normal 0.1-0.4 [facility] Comment on above: Performed By: #### Bertha [address], [place], [place], 44310-4, 37778-0 ####[facility] ([id number])[address] [address] ALPHA 2 GLOBULIN 0.5 g/dL Normal 0.4-1.1 [facility] Comment on above: Performed By: #### Bertha [address], [place], [place], 80971-5, 28640-0 ####[facility] ([id number])[address] [address] BETA GLOBULIN 0.9 g/dL Normal 0.5-1.[address] [facility] Comment on above: Performed By: #### Bertha [address], [place], SPE, 96637-7, 62521-5 ####[facility] ([id number])[address] [place] [address] GAMMA GLOBULIN 1.0 g/dL Normal 0.5-1.[address] [facility] Comment on above: Performed By: #### C [address], S[place], SPE, 88850-9, 45850-9 ####[facility] ([id number])[address], [address] [place] [address] PROT. ELECTROPHORESIS INTERP SEE SEPARATE REPORT Normal [facility] Comment on above: Performed By: #### C [address], S[place], SPE, 25764-6, 56068-4 ####[facility] ([id number])[address] [address] Protein [Mass/Vol] 6.0 g/dL Normal 6.0-8.0 [facility] Comment on above: Performed By: #### Bertha [address], [place], [place], 11277-5, 90453-6 ####[facility] ([id number])[address] [address] [place] [address] TSH WITH REFLEXon 06-14-2024 TSH 14.30 uIU/mL High 0.49-4.[address] [facility] Comment on above: Performed By: #### F EPR, 2276-4, 90636-8, TSHR, 2284-8, 2132-9, 3024-7, 2532-0 ####[facility] ([id number])[address] [address] TSH 13.51 uIU/mL High 0.49-4.[address] [facility] Comment on above: Performed By: #### C BCA, CMP, 04994-7, 2777-1, TSHR, 3024-7, 5196-1, 5193-8, 4679-7, 56169-0 ####[facility] ([id number])[address] [address] [place] [address] URINALYSISon 06-14-2024 Bilirubin Ql (U) Negative Normal NEG [facility] Comment on above: Performed By: #### Piotr Alvarado, UPCR ####[facility] ([id number])[address] [place] [address] BLOOD/HGB Large Abnormal NEG [facility] Comment on above: Performed By: #### Piotr Alvarado, UPCR ####[facility] ([id number])[address] [place] [place] [address] Color (U) YELLOW Normal YELLOW [facility] Comment on above: Performed By: #### Piotr Alvarado, UPCR ####[facility] ([id number])[address] [place] [place] [address] Glucose Ql (U) Negative Normal NEG [facility] Comment on above: Performed By: #### Piotr Alvarado, UPCR ####[facility] ([id number])[address], [address] [place] [address] Hyaline casts LM Ql (Urine sed) 10 /lpf High 0-[address] [facility] Comment on above: Performed By: #### Piotr Alvarado, UPCR ####[facility] ([id number])[address] [place] [address] Ketones Ql (U) Negative Normal NEG [facility] Comment on above: Performed By: #### Piotr Alvarado, UPCR ####[facility] ([id number])[address], [address] [place] [address] Leukocyte esterase Test strip Ql (U) Large Abnormal NEG [facility] Comment on above: Performed By: #### Piotr Alvarado, UPCR ####[facility] ([id number])[address], [address] [place] [address] MUCOUS PRESENT Abnormal NONE [facility] Comment on above: Performed By: #### Piotr Alvarado, UPCR ####[facility] ([id number])[address] [address] [place] [address] Nitrite Ql (U) Negative Normal NEG [facility] Comment on above: Performed By: #### Piotr Alvarado, UPCR ####[facility] ([id number])[address] [address] [place] [address] pH (U) 5.5 [pH] Normal 5.0-8.[address] [facility] Comment on above: Performed By: #### Piotr Alvarado, UPCR ####[facility] ([id number])[address] [address] [place] [address] Protein Ql (U) 50 mg/dL Abnormal NEG [facility] Comment on above: Performed By: #### Piotr Alvarado, UPCR ####[facility] ([id number])[address] [address] [place] [address] R.B.CELLS 140 /hpf High 0-[address] [facility] Comment on above: Performed By: #### Piotr Alvarado, UPCR ####[facility] ([id number])[address] [address] [place] [address] Specific gravity (U) [Rel density] 1.011 Normal 1.003-1.[address] [facility] Comment on above: Performed By: #### Piotr Alvarado, UPCR ####[facility] ([id number])[address] [address] SQUAMOUS EPITHELIUM 2 /hpf Normal 0-5 [facility] Comment on above: Performed By: #### U Christiano, UPCR ####[facility] ([id number])[address] [address] [place] [address] TRANSITIONAL EPITH <1 High 0 [facility] Comment on above: Performed By: #### Piotr Alvarado, UPCR ####[facility] ([id number])[address] [address] TURBIDITY HAZY Abnormal CLEAR [facility] Comment on above: Performed By: #### U Christiano, UPCR ####[facility] ([id number])[address] [address] Urinalysis dipstick W Reflex Microscopic panel (U) URINE RECEIVED WITHOUT PRESERVATIVE-DELAYS IN TRANSPORT MAY AFFECT RESULTS.INTERPRET WITH CAUTION AND CLINICAL CORRELATION IS RECOMMENDED. Normal [facility] Comment on above: Performed By: #### U Christiano, UPCR ####[facility] ([id number])[address] [address] Urobilinogen (U) [Mass/Vol] mg/dL Normal <1.[address] [facility] Comment on above: Performed By: #### U Christiano, UPCR ####[facility] ([id number])[address] [address] W.B.CELLS 69 /hpf High 0-[address] [facility] Comment on above: Performed By: #### U A, UPCR ####[facility] ([id number])[address] [address] URINE CULTUREon 06-14-2024 Bacteria identified Cx Nom (U) SPECIMEN NOTES URINE RECEIVED WITHOUT PRESERVATIVE CULTURE RESULTS NO GROWTH AT <1000 CFU/mL Normal [facility] Comment on above: Performed By: #### 6 30-4 ####[facility] ([id number])[address] [address] URINE PROTEIN ELECTROPHORESI Son 06-14-2024 UPREL INTERP SEE SEPARATE REPORT Normal [facility] US RETROPERITONEAL COMPLETEo n 06-14-2024 US RETROPERITONEAL COMPLETE Normal [facility] VENOUS BLOOD GASon ROBERT'S TEST Normal [facility] Comment on above: Performed By: #### V BG ####[facility] ([id number])[address] [facility] [place] [address] BASE,DEFICIT 9.0 MMOL/L High 0.0-2.[address] [facility] Comment on above: Performed By: #### V BG ####[facility] ([id number])[address] [facility] [place] [address] Body temperature 98.6 [degF] Normal 37.0 [facility] Comment on above: Performed By: #### V BG ####[facility] ([id number])[address] [place] [address] HCO3 (Bld) [Moles/Vol] 19.9 mmol/L Low 20.0-24.0 [facility] Comment on above: Performed By: #### V BG ####[facility] ([id number])[address] [place] [address] INSP. O2 CONC. 100 % Normal [facility] Comment on above: Performed By: #### V BG ####[facility] ([id number])[address] [place] [address] Oxygen saturation in Blood 91.0 % Normal >80.[address] [facility] Comment on above: Performed By: #### V BG ####[facility] ([id number])[address] [facility] [place] [address] OXYGEN SOURCE Vent Normal [facility] Comment on above: Performed By: #### V BG ####[facility] ([id number])[address] [facility] [place] [address] PCO2, VENOUS 56.6 MMHG High 35-[address] [facility] Comment on above: Performed By: #### V BG ####[facility] ([id number])[address] [place] [address] PH, VENOUS 7.154 Low 7.320-7.[address] [facility] Comment on above: Performed By: #### V BG ####[facility] ([id number])[address]141 [place] [address] PO2, VENOUS 78 MMHG High 30-[address] [facility] Comment on above: Performed By: #### V BG ####[facility] ([id number])[address] [place] [address] SAMPLE SITE N/A Normal [facility] Comment on above: Performed By: #### V BG ####[facility] ([id number])[address] [place] [address] SAMPLE TYPE VENOUS Normal [facility] Comment on above: Performed By: #### V BG ####[facility] ([id number])[address] [place] [address] VITAMIN B12on 06-14-2024 Cobalamin (Vitamin B12) [Mass/Vol] 1093 pg/mL High 180-[address] [facility] Comment on above: Performed By: #### F EPR, 2276-4, 63397-3, TSHR, 2284-8, 2132-9, 3024-7, 2532-0 ####[facility] ([id number])[address] [facility] [place] [address] XR CHEST 1 VWon 06-14-2024 XR CHEST 1 VW Normal [facility] XR CHEST 1 VW Normal [facility] aPTT Coag (PPP) [Time]on aPTT Coag (Bld) [Time] 45 s High 26-37 Pr [facility] Comment on above: Performed By: #### P INR, 53868-8 ####[facility] ([id number])[address] [facility], [address] [place] [address] BLOOD CULTUREon 06-13-2024 Bacteria identified Aer cx Nom (Bld) Normal [facility] Comment on above: Performed By: #### 1 7928-3 ####[facility] ([id number])[address], [address] [place] [address] Bacteria identified Aer cx Nom (Bld) SPECIMEN NOTES SUBOPTIMAL VOLUME OF BLOOD COLLECTED, RESULTS MAY BE AFFECTED. CULTURE RESULTS NO GROWTH 5 DAYS Normal [facility] Comment on above: Performed By: #### 1 7928-3 ####[facility] ([id number])[address], [address] [place] [address] CBC AND AUTO DIFFon 06-14-19 25 ABSOLUTE BASOPHIL 0.0 X10E9/L Normal 0.0-0.2 [facility] Comment on above: Performed By: #### C BCA, CMP, 25893-1, 2777-1, 95047-7, 21059-5, PINR, 12153-7 ####[facility] ([id number])[address] [address] [place] [address] ABSOLUTE NEUTROPHIL 3.7 X10E9/L Normal 1.5-6.6 [facility] Comment on above: Performed By: #### C BCA, CMP, 04143-3, 2777-1, 44930-8, 06495-2, PINR, 41389-3 ####[facility] ([id number])[address] [address] [place] [address] Basophils/100 WBC (Bld) 0.3 % Normal P [facility] Comment on above: Performed By: #### C BCA, CMP, 94653-5, 2777-1, 26635-6, 69016-0, PINR, 27174-0 ####[facility] ([id number])[address] [address] [place] [address] Eosinophils (Bld) [#/Vol] 0.0 10*3/uL Normal 0.0-0.[address] [facility] Comment on above: Performed By: #### C BCA, CMP, 94769-7, 2777-1, 24407-4, 20036-7, PINR, 60729-1 ####[facility] ([id number])[address] [address], [place] [address] Eosinophils/100 WBC (Bld) 0.2 % Normal [facility] Comment on above: Performed By: #### C BCA, CMP, 04208-5, 2777-1, 33555-1, 44327-9, PINR, 99093-8 ####[facility] ([id number])[address], [address], [place] [address] Erythrocyte distribution width (RBC) [Ratio] 16.8 % High 11.5-15.[address] [facility] Comment on above: Performed By: #### C BCA, CMP, 50876-7, 2777-1, 17900-5, 79702-0, PINR, 55230-5 ####[facility] ([id number])[address] [address], [place] [address] Hematocrit (Bld) [Volume fraction] 24.9 % Low 35-[address] [facility] Comment on above: Performed By: #### C BCA, CMP, 67923-6, 2777-1, 16816-9, 91558-0, PINR, 17072-4 ####[facility] ([id number])[address] [address] [place] [address] Hemoglobin (Bld) [Mass/Vol] 8.2 g/dL Low 11.7-15.[address] [facility] Comment on above: Performed By: #### C BCA, CMP, 10138-0, 2777-1, 08629-6, 85107-3, PINR, 74642-0 ####[facility] ([id number])[address] [address] [place] [address] Lymphocytes (Bld) [#/Vol] 0.4 10*3/uL Low 1.0-3.[address] [facility] Comment on above: Performed By: #### C BCA, CMP, 02769-1, 2777-1, 68316-9, 57900-9, PINR, 00608-9 ####[facility] ([id number])[address], [address], [place] [address] Lymphocytes/100 WBC (Bld) 9.4 % Normal [facility] Comment on above: Performed By: #### C BCA, CMP, 34077-1, 2777-1, 77853-0, 17666-0, PINR, 79212-4 ####[facility] ([id number])[address], [address], [place] [address] MCH (RBC) [Entitic mass] 33.0 pg Normal 27-[address] [facility] Comment on above: Performed By: #### C BCA, CMP, 29427-2, 2777-1, 17820-0, 98861-0, PINR, 03744-2 ####[facility] ([id number])[address], [address], [place] [address] MCHC (RBC) [Mass/Vol] 32.8 g/dL Normal 32-36 [facility] Comment on above: Performed By: #### C BCA, CMP, 24264-8, 2777-1, 39754-9, 17773-5, PINR, 81084-9 ####[facility] ([id number])[address], [address] [place] [address] MCV (RBC) [Entitic vol] 101 fL High 80-100 P [facility] Comment on above: Performed By: #### C BCA, CMP, 02601-4, 2777-1, 19165-8, 18398-5, PINR, 75618-1 ####[facility] ([id number])[address], [address] [place] [address] Monocytes (Bld) [#/Vol] 0.5 10*3/uL Normal 0-0.[address] [facility] Comment on above: Performed By: #### C BCA, CMP, 26965-8, 2777-1, 78011-8, 93462-6, PINR, 74239-7 ####[facility] ([id number])[address], [address] [address] Monocytes/100 WBC (Bld) 10.9 % Normal [facility] Comment on above: Performed By: #### C BCA, CMP, 04210-7, 2777-1, 50488-3, 51301-4, PINR, 30667-3 ####[facility] ([id number])[address], [address], [place] [address] Neutrophils/100 WBC (Bld) 79.2 % Normal [facility] Comment on above: Performed By: #### C BCA, CMP, 22994-4, 2777-1, 50476-0, 12041-4, PINR, 47152-6 ####[facility] ([id number])[address], [address] [address] Platelet mean volume (Bld) [Entitic vol] 7.2 fL Normal 7-[address] [facility] Comment on above: Performed By: #### C BCA, CMP, 92040-3, 2777-1, 53709-5, 34785-9, PINR, 83002-6 ####[facility] ([id number])[address], [address] [address] Platelets (Bld) [#/Vol] 149 10*3/uL Low 150-[address] [facility] Comment on above: Performed By: #### C BCA, CMP, 42146-9, 2777-1, 65131-2, 41247-7, PINR, 72637-7 ####[facility] ([id number])[address], [address] [place] [address] RBC COUNT 2.48 X10E12/L Low 3.80-5.[address] [facility] Comment on above: Performed By: #### C BCA, CMP, 63102-8, 2777-1, 48662-9, 22347-0, PINR, 23784-3 ####[facility] ([id number])[address], [address] [place] [address] WBC (Bld) [#/Vol] 4.7 10*3/uL Normal 4.0-11.0 [facility] Comment on above: Performed By: #### C BCA, CMP, 58780-7, 2777-1, 54291-7, 73401-6, PINR, 96678-7 ####[facility] ([id number])[address] [place] [address] COMPREHENSIVE METABOLIC PANE Kael 06-13-2024 Albumin [Mass/Vol] 3.4 g/dL Normal 3.2-5.3 [facility] Comment on above: Performed By: #### C BCA, CMP, 43327-5, 2777-1, 54915-0, 70091-8, PINR, 36911-2 ####[facility] ([id number])[address], [address] [place] [address] ALP [Catalytic activity/Vol] 139 U/L High 39-[address] [facility] Comment on above: Performed By: #### C BCA, CMP, 20329-4, 2777-1, 34161-3, 99814-2, PINR, 41763-4 ####[facility] ([id number])[address], [address], [place] [address] ALT [Catalytic activity/Vol] 4 U/L Normal 0-[address] [facility] Comment on above: Performed By: #### C BCA, CMP, 07243-8, 2777-1, 53297-0, 22858-7, PINR, 00460-4 ####[facility] ([id number])[address], [address], [place] [address] Anion gap [Moles/Vol] 12 mmol/L Normal 5-15 [facility] Comment on above: Performed By: #### C BCA, CMP, 88451-0, 2777-1, 11909-3, 85554-4, PINR, 33015-7 ####[facility] ([id number])[address], [place] [address] AST [Catalytic activity/Vol] 15 U/L Normal 0-[address] [facility] Comment on above: Performed By: #### C BCA, CMP, 38218-1, 2777-1, 54331-5, 36791-4, PINR, 02474-0 ####[facility] ([id number])[address], [address], [place] [address] Bilirubin [Mass/Vol] 0.9 mg/dL Normal 0.3-1.2 [facility] Comment on above: Performed By: #### C BCA, CMP, 88169-4, 2777-1, 62084-9, 82723-9, PINR, 68108-8 ####[facility] ([id number])[address], [address], [place] [address] Calcium [Mass/Vol] 8.2 mg/dL Low 8.5-10.5 [facility] Comment on above: Performed By: #### C BCA, CMP, 92389-7, 2777-1, 94798-1, 96444-4, PINR, 02219-2 ####[facility] ([id number])[address], [address], [place] [address] Chloride [Moles/Vol] 99 mmol/L Normal 98-109 [facility] Comment on above: Performed By: #### C BCA, CMP, 71312-7, 2777-1, 37336-5, 26731-1, PINR, 44833-5 ####[facility] ([id number])[address] [address] CO2 [Moles/Vol] 20 mmol/L Low 22-[address] [facility] Comment on above: Performed By: #### C BCA, CMP, 60400-9, 2777-1, 21920-0, 90290-9, PINR, 01400-4 ####[facility] ([id number])[address] [place] [address] Creatinine [Mass/Vol] 3.34 mg/dL High 0.40-1.00 [facility] Comment on above: Result Comment: METH OD TRACEABLE TO IDMS STANDARD Performed By: #### C BCA, CMP, 00286-1, 2777-1, 87035-7, 32083-1, PINR, 60120-6 ####[facility] ([id number])[address] [address] [address] GFR/1.73 sq M.predicted among non-blacks MDRD (S/P/Bld) [Vol rate/Area] 15 mL/min/{1.73_m2} Low >[address] [facility] Comment on above: Result Comment: Repo rted eGFR is based on theCKD-EPI 2020 equation that doesnot use a race coefficient. Performed By: #### C BCA, CMP, 17701-4, 2777-1, 82008-8, 45421-3, PINR, 91181-7 ####[facility] ([id number])[address] [address] Glucose [Mass/Vol] 85 mg/dL Normal 65-99 [facility] Comment on above: Performed By: #### C BCA, CMP, 96198-4, 2777-1, 37044-7, 75617-5, PINR, 08890-7 ####[facility] ([id number])[address] [address] Potassium [Moles/Vol] 4.8 mmol/L Normal 3.5-5.0 [facility] Comment on above: Performed By: #### C BCA, CMP, 23078-3, 2777-1, 30146-0, 36674-5, PINR, 38571-6 ####[facility] ([id number])[address], [place] [address] Protein [Mass/Vol] 6.3 g/dL Normal 6.0-8.0 [facility] Comment on above: Performed By: #### C BCA, CMP, 09555-4, 2777-1, 19029-4, 16859-1, PINR, 45513-4 ####[facility] ([id number])[address], [place] [address] Sodium [Moles/Vol] 131 mmol/L Low 134-146 [facility] Comment on above: Performed By: #### C BCA, CMP, 06462-3, 2777-1, 86141-8, 34527-4, PINR, 92752-3 ####[facility] ([id number])[address] [address] [place] [address] Urea nitrogen [Mass/Vol] 43 mg/dL High 5-[address] [facility] Comment on above: Performed By: #### C BCA, CMP, 30113-3, 2777-1, 33455-0, 35155-7, PINR, 90912-1 ####[facility] ([id number])[address], [place] [address] Glucose Glucometer (BldC) [M ass/Vol]on 06-13-2024 Glucose [Mass/Vol] 88 mg/dL Normal 65-99 [facility] - Chemistry and C hemistry - challengeon 06-13-2024 HCO3 (Bld) [Moles/Vol] 19.8 mmol/L Low 22.0-26.0 [facility] Ammonia (P) [Moles/Vol] 59 umol/L Critically high 11-32 [facility] Comment on above: RESULTS CALLED TO donte brink rn @BY Delmi Quiles [id number] Amylase [Catalytic activity/Vol] 39 U/L 25-115 [facility] Lactate [Moles/Vol] 1.1 mmol/L 0.4-2.0 [facility] Lipase [Catalytic activity/Vol] 36.0 U/L 16.0-77.0 [facility] Magnesium [Mass/Vol] 1.0 mg/dL Low 1.8-2.4 [facility] T4 [Mass/Vol] 2.20 ug/dL Low 4.80-13.90 [facility] TSH Qn 13.271 m[IU]/L High 0.358-3.74 0 [facility] - Microbiology an d Antimicrobial susceptibilityon 06-13-2024 SARS-CoV-2 (COVID-19) RNA YVONNE+probe Ql (Unsp spec) Negative NEGATIVE [facility] Comment on above: This test has not be en FDA cleared or approved, but has beenauthorized by the FDA under an Emergency Use Authorization(EUA) for use by authorized laboratories certified underIA that meet the requirements to perform moderate or highcomplexity testing. This test has been authorized only forthe detection of proteins from SARS-CoV-2, not for any otherviruses or pathogens. The emergency use of this test isauthorized for the duration of the declaration thatcircumstances exist justifying the authorization ofemergency use of in vitro diagnostic tests for detectionand/or diagnosis of Covid-19 under section 564(b)(1) of theAct, 21 U.S.C. 360bbb-3(b)(1), unless the declaration isterminated or authorization is revoked sooner. Lactate (P mikey) [Moles/Vol]o n 06-13-2024 LACTATE W/REFLEX 0.8 mmol/L Normal 0.4-2.0 [facility] Comment on above: Result Comment: Resu lt did not trigger repeat Lactate,re-order if needed. Performed By: #### C BCA, CMP, 62990-2, 2967-1, 15143-5, 56051-2, PINR, 48683-7 ####[facility] ([id number])[address] [facility], [address] [place] [address] MAGNESIUMon 06-13-2024 Magnesium [Mass/Vol] 1.0 mg/dL Low 1.8-2.6 [facility] Comment on above: Performed By: #### C EWELINA, RENA, 98784-8, 2777-1, 46779-5, 85825-7, PINR, 46391-7 ####[facility] ([id number])[address] [facility], [address] [place] [address] MRSA PCR NASALon 06-13-2024 MRSA DNA YVONNE+probe Ql (Unsp spec) Positive Abnormal NEG [facility] Comment on above: Performed By: #### 3 5492-8 ####[facility] ([id number])[address] [facility], [address] [place] [address] Natriuretic peptide B [Mass/ Vol]on 06-13-2024 Natriuretic peptide B (Bld) [Mass/Vol] 1765 pg/mL High <100.[address] [facility] Comment on above: Performed By: #### C EWELINA, RENA, 02635-6, 2777-1, 04846-0, 14185-5, PINR, 48562-7 ####[facility] ([id number])[address] [facility] [place], [place] [id number] No Panel Informationon 06-13 Robert Test Positive POSITIVE [facility] Arterial Blood Base Excess -8.6 mmol/L Low <2.0-2.0 [facility] Arterial Blood Oxygen Saturation 99.5 % [facility] Arterial Blood Partial Pressure CO2 53.0 mm[Hg] Critically high 35.0-45.0 [facility] Comment on above: RESULTS CALLED TO BRITTANEY PACHECORN Arterial Blood Partial Pressure O2 120.0 mm[Hg] High 80.0-100.0 [facility] Arterial Blood pH 7.181 Critically low 7.350-7. 45 0 [facility] Comment on above: RESULTS CALLED TO BRITTANEY PACHECO RN Blood Gas Mode BiPAP 23/11 [facility] Blood Gas Sample Site RR [facility] Blood Gas Set Respiration Rate 12 [facility] Blood Gas Tidal Volume 466 Fi [facility] Blood Gas Ventilator Mode ST [facility] FiO2 35 % [facility] Oxygen Delivery Device BIPAP Fi [facility] Reference Lab Test #2 Result 9.3 [facility] Troponin I High Sensitivity 78.0 pg/mL Critically high 4.0-51.3 [facility] Comment on above: RESULTS CALLED TO DONTE BRINK RNCUT-OFF POINTS HAVE BEEN ESTABLISHED BASED ON THE FOURTHUNIVERSAL DEFINITION OF MYOCARDIAL INFARCTION. THE UPPERREFERENCE LIMIT (URL) OF TROPONIN, DEFINED THE 99THPERCENTILE OF cTnI DISTRIBUTION IN A REFERENCE POPULATION,HAS BEEN CONFIRMED THE DECISION THRESHOLD FOR MIDIAGNOSIS.99TH PERCENTILE = 51.4 PG/MLNOTE: HIGH-SENSITIVITY TROPONIN ASSAY IS NOT INTENDED TO BEUSED IN ISOLATION BUT SHOULD BE INTERPRETED IN CONJUNCTIONWITH OTHER DIAGNOSTIC AND CLINICAL INFORMATION. Blood Gas Liter Flow 3 [facility] Venous Blood Partial Pressure CO2 51.2 mm[Hg] 40.0-52.0 [facility] Venous Blood pH 7.172 Low 7.330-7.43 0 [facility] Bedside Influenza Type A Antigen Negative [facility] Comment on above: Negative for Flu A p rotein antigen. Infection due to Flu Acannot be ruled out. Flu A antigen in the sample may bebelow the detection limit of the test. Bedside Influenza Type B Antigen Negative [facility] Comment on above: Negative for Flu B p rotein antigen. Infection due to Flu Bcannot be ruled out. Flu B antigen in the sample may bebelow the detection limit of the test. RSV RNA Qual (PCR)([facility]) Not detected NOT DETECTE [facility] PHOSPHORUSon 06-13-2024 Phosphate [Mass/Vol] 6.8 mg/dL High 2.4-4.9 [facility] Comment on above: Performed By: #### C BCA, CMP, 63195-1, 1927-1, 70244-7, 89840-7, PINR, 12803-9 ####[facility] ([id number])[address], [address], [place] [address] PROTIME AND INRon 06-13-2024 INR Coag (PPP) [Relative time] 1.4 {INR} High 0.9-1.[address] [facility] Comment on above: Performed By: #### C BCA, CMP, 46328-7, 2777-1, 87707-7, 83070-8, PINR, 84264-3 ####[facility] ([id number])[address], [place] [address] PT Coag (PPP) [Time] 16.3 s High 9.8-13.2 [facility] Comment on above: Performed By: #### C BCA, CMP, 82810-0, 7-1, 44017-7, 69668-8, PINR, 90573-5 ####[facility] ([id number])[address], [place] [address] Procalcitonin IA [Mass/Vol]o n 06-13-2024 PROCALCITONIN 0.22 ng/mL High <0.[address] [facility] Comment on above: Result Comment: NOTE <0.50 ng/mL - Low risk of severe sepsis and/or septic shock.<2.00 ng/mL - Recommend retesting within 6-24 hours.>2.00 ng/mL - High risk of sepsis and/or septic shock. Performed By: #### C BCA, CMP, 90409-4, 2777-1, 60514-4, 84776-4, PINR, 81302-6 ####[facility] ([id number])[address], [address] [place] [address] RESP PATHOGENS/[id number] 06-13-2024 Respiratory pathogens DNA and RNA panel YVONNE+non-probe (Nph) Normal [facility] Comment on above: Performed By: #### 8 2159-5 ####[facility] ([id number])[address], [address] [place] [address] Troponin I.cardiac High sens itivity method [Mass/Vol]on 06-13-2024 1 HOUR TROP I, HIGH SENSITIVITY 58 ng/L High <[address] [facility] Comment on above: Result Comment: Elev ations of hs-Troponin may be due to causesother than myocardial ischemia.Recommend serial hs-Troponin testing be performed.For the initial evaluation and management of chestpain patients, refer to the algorithms linked below.Emergency Patient:[email or web address]:[email or web address] Performed By: #### 8 9579-7 ####[facility] ([id number])[address], [address] [place] [address] TROPONIN I, HIGH SENSITIVITY 61 ng/L High <[address] [facility] Comment on above: Result Comment: Elev ations of hs-Troponin may be due to causesother than myocardial ischemia.Recommend serial hs-Troponin testing be performed.For the initial evaluation and management of chestpain patients, refer to the algorithms linked below.Emergency Patient:[email or web address]:[email or web address] Performed By: #### 8 9579-7 ####[facility] ([id number])[address], [address] [place] [address] VENOUS BLOOD GASon ROBERT'S TEST Normal [facility] Comment on above: Performed By: #### V BG ####[facility] ([id number])[address] [facility] [facility] [place] [address] BASE,DEFICIT 8.0 MMOL/L High 0.0-2.[address] [facility] Comment on above: Performed By: #### V BG ####[facility] ([id number])[address] [facility] [place] [address] Body temperature 98.6 [degF] Normal 37.0 [facility] Comment on above: Performed By: #### V BG ####[facility] ([id number])[address] [facility] [address] HCO3 (Bld) [Moles/Vol] 21.2 mmol/L Normal 20.0-24.0 [facility] Comment on above: Performed By: #### V BG ####[facility] ([id number])[address] [facility] [place] [address] INSP. O2 CONC. 40 % Normal [facility] Comment on above: Performed By: #### V BG ####[facility] ([id number])[address] [facility] [place] [address] Oxygen saturation in Blood 62.0 % Low >80.[address] [facility] Comment on above: Performed By: #### V BG ####[facility] ([id number])[address] [place] [address] OXYGEN SOURCE NC Normal [facility] Comment on above: Performed By: #### V BG ####[facility] ([id number])[address] [place] [address] PCO2, VENOUS 62.5 MMHG High 35-[address] [facility] Comment on above: Performed By: #### V BG ####[facility] ([id number])[address] [facility] [place] [address] PH, VENOUS 7.139 Low 7.320-7.[address] [facility] Comment on above: Performed By: #### V BG ####[facility] ([id number])2141 [place] [address] PO2, VENOUS 42 MMHG Normal 30-[address] [facility] Comment on above: Performed By: #### V BG ####[facility] ([id number])[address]141 [place] [address] SAMPLE SITE N/A Normal [facility] Comment on above: Performed By: #### V BG ####[facility] ([id number])2141 [place] [address] SAMPLE TYPE VENOUS Normal [facility] Comment on above: Performed By: #### V BG ####[facility] ([id number])[address]141 [place] [address] XR CHEST 1 VWon 06-13-2024 XR CHEST 1 VW Normal [facility] Basophils Auto (Bld) [#/Vol] on 06-12-2024 Basophils (Bld) [#/Vol] Automated basophil count 0.0-0.1 [facility] Basophils/100 WBC Auto (Bld) on 06-12-2024 Basophils/100 WBC (Bld) Automated basophil % 0. 2-2.0 [facility] Eosinophils/100 WBC Auto (Bl d)on 06-12-2024 Eosinophils/100 WBC (Bld) Automated eosinophil % Low 0.9-7.0 [facility] Erythrocyte distribution wid th Auto (RBC) [Ratio]on 06-12-2024 Erythrocyte distribution width (RBC) [Ratio] Erythrocyte distribution width [Ratio] by Automated count High 11.0-15.0 [facility] Estimated glomerular filtrat ion rate (GFR) non- Americanon 06-12-2024 GFR/1.73 sq M.predicted among non-blacks MDRD (S/P/Bld) [Vol rate/Area] Estimated glomerular filtration rate (GFR) non- Low >=60 mL/min/1.7 3m 2 [facility] Globulin Calc (S) [Mass/Vol] on 06-12-2024 Globulin (S) [Mass/Vol] Serum globulin m easurement by calculation (mass/volume) [facility] Hematocrit Auto (Bld) [Volum e fraction]on 06-12-2024 Hematocrit (Bld) [Volume fraction] Hematocrit [Volume Fraction] of Blood by Automated count Low 36.0-48.0 [facility] Hemoglobin [Mass/volume] in Bloodon 06-12-2024 Hemoglobin (Bld) [Mass/Vol] Hemoglobin [Mass/volume] in Blood Low 12.0-16.0 [facility] INR in Platelet poor plasma by Coagulation assayon 06-12-2024 INR Coag (PPP) [Relative time] INR in Platelet poor plasma by Coagulation assay [facility] Comment on above: DESIRED INR:2.0-3.0 CONDITIONS NOT LISTED BELOW2.5-3.5 FOR PROSTHETIC HEART VALVE REPLACEMENT2.5-3.5 RECURRENT THROMBOSIS Laboratory - Chemistry and C hemistry - challengeon 06-12-2024 Albumin [Mass/Vol] 2.7 g/dL Low 3.4-5.0 [facility] ALP [Catalytic activity/Vol] 170 U/L High 46-116 [facility] ALT [Catalytic activity/Vol] 11 U/L Low 14-59 [facility] AST [Catalytic activity/Vol] 20 U/L 15-37 [facility] Bilirubin [Mass/Vol] 0.6 mg/dL 0.2-1.0 [facility] Calcium [Mass/Vol] 8.2 mg/dL Low 8.5-10.1 [facility] Chloride [Moles/Vol] 96 mmol/L Low 98-107 [facility] CO2 [Moles/Vol] 18.4 mmol/L Low 21.0-32.0 [facility] Creatinine [Mass/Vol] 3.36 mg/dL High 0.55-1.02 [facility] GFR/1.73 sq M.predicted MDRD (S/P/Bld) [Vol rate/Area] 17 mL/min/{1.73_m2} Low >=60 mL/min/1.7 3m 2 [facility] Glucose [Mass/Vol] 68 mg/dL Low 74-106 [facility] Lactate [Moles/Vol] 2.4 mmol/L Critically high 0.4-2.0 [facility] Comment on above: RESULTS CALLED TO ORVILLE SOTO RN at 2014 Natriuretic peptide B (Bld) [Mass/Vol] pg/mL Critically high <=900.0 [facility] Comment on above: RESULTS CALLED TO NIKOS SYED NP at 2021 Potassium [Moles/Vol] 4.8 mmol/L 3.5-5.1 [facility] Protein [Mass/Vol] 6.9 g/dL 6.4-8.2 [facility] Sodium [Moles/Vol] 128 mmol/L Low 136-145 [facility] Urea nitrogen [Mass/Vol] 39.0 mg/dL High 7.0-18.0 [facility] Urea nitrogen/Creatinine [Mass ratio] 11.6 mg/mg [facility] Bilirubin Ql (U) Negative NEGATIVE [facility] Glucose (U) [Mass/Vol] Negative NEGATIVE [facility] Ketones Ql (U) Negative NEGATIVE [facility] pH (U) 5.5 [pH] 5.0-9.0 [facility] Specific gravity (U) [Rel density] 1.025 1.005-1.02 5 [facility] Urobilinogen Qn (U) 0.2 {Pascale'U}/dL 0.2-1.0 [facility] Laboratory - Hematology and Cell countson 06-12-2024 Immature granulocytes/100 WBC (Bld) 1.1 % High 0.0-0.5 [facility] Laboratory - Specimen inform ationon 06-12-2024 Appearance (U) SL CLOUDY CLEAR [facility] Color (U) YELLOW YELLOW [facility] Laboratory - Urinalysison Leukocyte esterase Test strip Ql (U) Negative NEGATIVE [facility] Mucus Ql (Urine sed) NONE SEEN NONE SEEN [facility] Nitrite Ql (U) Negative NEGATIVE [facility] Protein Ql (U) >=300 mg/dL Abnormal NEG/TRACE [facility] Leukocytes [#/volume] correc maxi for nucleated erythrocytes in Blood by Automated counon 06-12-2024 WBC corrected for nucl RBC Auto (Bld) [#/Vol] Leukocytes [#/volume] corrected for nucleated erythrocytes in Blood by Automated coun 4.0-11.0 [facility] Lymphocytes Auto (Bld) [#/Vo l]on 06-12-2024 Lymphocytes (Bld) [#/Vol] Lymphocytes [#/volume] in Blood by Automated count Low 1.2-3.8 [facility] Lymphocytes/100 WBC Auto (Bl d)on 06-12-2024 Lymphocytes/100 WBC (Bld) Lymphocytes/100 leukocytes in Blood by Automated count Low 20.5-60.0 [facility] MCH Auto (RBC) [Entitic mass ]on 06-12-2024 MCH (RBC) [Entitic mass] MCH [Entitic ma ss] by Automated count 26.7-34.0 [facility] MCHC Auto (RBC) [Mass/Vol]on 06-12-2024 MCHC (RBC) [Mass/Vol] MCHC [Mass/volume] by Automated count 29.9-35.2 [facility] MCV Auto (RBC) [Entitic vol] on 06-12-2024 MCV (RBC) [Entitic vol] MCV [Entitic vol ume] by Automated count High 81.0-99.0 [facility] Monocytes Auto (Bld) [#/Vol] on 06-12-2024 Monocytes (Bld) [#/Vol] Automated blood monocyte count 0.3-0.8 [facility] Monocytes/100 WBC Auto (Bld) on 06-12-2024 Monocytes/100 WBC (Bld) Automated monocyte % 1. 7-12.0 [facility] Neutrophils Auto (Bld) [#/Vo l]on 06-12-2024 Neutrophils (Bld) [#/Vol] Neutrophils [#/volume] in Blood by Automated count 1.4-6.5 [facility] Neutrophils/100 WBC Auto (Bl d)on 06-12-2024 Neutrophils/100 WBC (Bld) Automated neutrophil % High 43.0-75.0 [facility] No Panel Informationon 06-12 Ethyl Alcohol Level 33 mg/dL [facility] Comment on above: NOTE: 80 mg/dl is th e legal limit for a blood alcohol level Troponin I High Sensitivity 58.7 pg/mL Critically high 4.0-51.3 [facility] Comment on above: RESULTS CALLED TO NIKOS SYED NP at [facility]-OFF POINTS HAVE BEEN ESTABLISHED BASED ON THE FOURTHUNIVERSAL DEFINITION OF MYOCARDIAL INFARCTION. THE UPPERREFERENCE LIMIT (URL) OF TROPONIN, DEFINED THE 99THPERCENTILE OF cTnI DISTRIBUTION IN A REFERENCE POPULATION,HAS BEEN CONFIRMED THE DECISION THRESHOLD FOR MIDIAGNOSIS.99TH PERCENTILE = 51.4 PG/MLNOTE: HIGH-SENSITIVITY TROPONIN ASSAY IS NOT INTENDED TO BEUSED IN ISOLATION BUT SHOULD BE INTERPRETED IN CONJUNCTIONWITH OTHER DIAGNOSTIC AND CLINICAL INFORMATION. Eosinophils # (Auto) 0.0 10 3/uL 0.0-0.7 [facility] Immature Granulocyte # (Auto) 0.06 10 3/uL High 0.00-0.03 [facility] Urine Bacteria MODERATE #/HPF Abnormal NONE SEEN [facility] Urine Microscopic Review YES [facility] Urine Occult Blood TRACE-I NEGATIVE [facility] Urine Other Casts NONE SEEN #/LPF NONE SEEN [facility] Urine Other Crystals None Seen #/HPF None Seen [facility] Urine RBC 0-2 #/HPF 0-2 [facility] Urine Squamous Epithelial Cells FEW #/LPF Abnormal NONE/RARE [facility] Urine WBC 2-5 #/HPF Abnormal NONE SEEN [facility] Platelet mean volume Auto (B ld) [Entitic vol]on 06-12-2024 Platelet mean volume (Bld) [Entitic vol] Platelet mean volume [Entitic volume] in Blood by Automated count Low 9.5-13.5 [facility] Platelets Auto (Bld) [#/Vol] on 06-12-2024 Platelets (Bld) [#/Vol] Platelets [#/vol ume] in Blood by Automated count 150-450 [facility] Prothrombin time (PT)on PT Coag (PPP) [Time] Prothrombin time (PT) High 9.0- 11.6 [facility] RBC Auto (Bld) [#/Vol]on RBC (Bld) [#/Vol] Erythrocytes [#/volu me] in Blood by Automated count Low 4.20-5.40 [facility] Serum or plasma albumin/glob ulin mass ratioon 06-12-2024 Albumin/Globulin [Mass ratio] Serum or plasma albumin/globulin mass ratio [facility] Serum or plasma anion gap de terminationon 06-12-2024 Anion gap [Moles/Vol] Serum or plasma an ion gap determination [facility] Urine Cultureon 06-12-2024 Bacteria identified Cx Nom (U) No Growth 2 Days PERFORMED BY: [place] [address] PATHOLOGIST SUPERVISOR LOCOMOTIVE SALLY Nunez [facility] Comment on above: Performed By: #### C UU #### [address] Pathology study report docum entOrdered By: Maury Schafer on 02-22-2024 Pathology study [facility] Other Phone: Kael 02-19-2024 L ------ Specimen: [id number] Received: 02/20/24 Status: MARCELO Sanchez Num: [id number] Spec Type: Surgical Subm Dr: Cody Neves MD Tissues: A BREAST CORE NO CALCS (LEFT BREAST) Procedures: HE/Caroline, Gross/Micro L4 Age/ Patient Sex Location Account Attending Physician Orestes Alvares 59/F [facility] [id number] Katie Velasquez APRN, SPEC NUM: [id number] RECD: 02/20/24 STATUS: MARCELO SANCHEZ NUM: [id number] LYNDSEY: 02/19/24 [facility] DR: Cody Neves MD ENTERED: 02/20/[address] [facility] [address]: Kim,Chinmay Velasquez APRN, [facility] SPEC TYPE: Surgical DEPT: JUANIS PERES ENTERED BY: [id number] RECV BY: [id number] ORDERED: HE/4, Gross/Micro L4 ORDERED: HE/4, Gross/Micro L4 Pathological Diagnosis Left breast, mass [...] Fixation time: Time tissue removed from patient: 1504 Time specimen placed in formalin: 1506 Specimen: [id number] Received: 02/20/24 Status: MARCELO Sanchez Num: [id number] Spec Type: Surgical Subm Dr: Cody Neves MD Tissues: A BREAST CORE NO CALCS (LEFT BREAST) Procedures: , Gross/Micro L4 Patient: BrandonericaOrestes S [id number] (Continued) Specimen: [id number] Received: 02/20/24 (Continued) Gross Description (Continued) Signed (signature on file) Maury Schafer MD 02/22/24 1036 Specimen: [id number] Received: 02/20/24 Status: MARCLEO Sanchez Num: [id number] Spec Type: Surgical Subm Dr: Cody Neves MD Tissues: A BREAST CORE NO CALCS (LEFT BREAST) Procedures: HE/4, Gross/Micro L4 Patient: Andrea Alvaresa Suzanne [id number] (Continued) Specimen: [id number] Received: 02/20/24 (Continued) Gross Description (Continued) Cold ischemic time: 2 minutes Total fixation time: 26 hours and 30 minutes (2, lio, QD16-649 A) Microscopic Description Microscopic examination is performed. CPT Codes 40321 Specimen: [id number] Received: 02/20/24 Status: MARCELO Sanchez Num: [id number] Spec Type: Surgical Subm Dr: Cody Neves MD Tissues: A BREAST CORE NO CALCS (LEFT BREAST) Procedures: , Gross/Micro L4 Patient: Orestes Alvares [id number] (Continued) Signed (signature on file) Maury Schafer MD 02/22/24 1036 Normal [facility] Activated partial thrombopla stin time (aPTT) in platelet poor plasma by coagulation aOrdered By: Caden Jarrell on 03-15-2022 aPTT Coag (PPP) [Time] 30.8 s 25.1-36.5 [facility] Basophils Auto (Bld) [#/Vol] Ordered By: Caden Jarrell on 03-15-2022 Basophils (Bld) [#/Vol] 0.1 10*3/uL 0.0-0.2 [facility] Basophils/100 WBC Auto (Bld) Ordered By: Caden Jarrell on 03-15-2022 Basophils/100 WBC (Bld) 0.9 % . [facility] Creatine kinase [Enzymatic a ctivity/volume] in Serum or PlasmaOrdered By: Caden Jarrell on 03-15-2022 CK [Catalytic activity/Vol] 33 U/L 22-269 [facility] Creatinine and Glomerular fi ltration rate.predicted panel (S/P/Bld)Ordered By: Caden Jarrell on 03-15-2022 Creatinine [Mass/Vol] 1.34 mg/dL 0.44-1.03 [facility] Eosinophils Auto (Bld) [#/Vo l]Ordered By: Caden Jarrell on 03-15-2022 Eosinophils (Bld) [#/Vol] 0.0 10*3/uL 0.0-0.45 [facility] Eosinophils/100 WBC Auto (Bl d)Ordered By: Caden Jarrell on 03-15-2022 Eosinophils/100 WBC (Bld) 0.2 % . [facility] Erythrocyte distribution wid th Auto (RBC) [Ratio]Ordered By: Caden Jarrell on 03-15-2022 Erythrocyte distribution width (RBC) [Ratio] 13.6 % 11.9-15.3 [facility] Estimated glomerular filtrat ion rate (GFR) non- AmericanOrdered By: Caden Jarrell on 03-15-2022 GFR/1.73 sq M.predicted among non-blacks MDRD (S/P/Bld) [Vol rate/Area] 40 mL/Min [facility] Hematocrit Auto (Bld) [Volum e fraction]Ordered By: Caden Jarrell on 03-15-2022 Hematocrit (Bld) [Volume fraction] 31.6 % 34.0-46.4 [facility] Hemoglobin [Mass/volume] in BloodOrdered By: Caden Jarrell on 03-15-2022 Hemoglobin (Bld) [Mass/Vol] 11.0 g/dL 11.8-15.4 [facility] Laboratory - Chemistry and C hemistry - challengeOrdered By: Caden Jarrell on 03-15-2022 Natriuretic peptide B (Bld) [Mass/Vol] 1767.0 pg/mL 5-100 [facility] Laboratory - CoagulationOrde red By: Caden Jarrell on 03-15-2022 PT Coag (PPP) [Time] 13.2 s 9.0-12.9 [facility] Leukocytes [#/volume] correc maxi for nucleated erythrocytes in Blood by Automated counOrdered By: Caden Jarrell on 03-15-2022 WBC corrected for nucl RBC Auto (Bld) [#/Vol] 7.8 10*3/uL 3.8-11.6 [facility] Lymphocytes Auto (Bld) [#/Vo l]Ordered By: Caden Jarrell on 03-15-2022 Lymphocytes (Bld) [#/Vol] 0.8 10*3/uL 1.00-4.8 [facility] Lymphocytes/100 WBC Auto (Bl d)Ordered By: Caden Jarrell on 03-15-2022 Lymphocytes/100 WBC (Bld) 10.6 % . [facility] MCH Auto (RBC) [Entitic mass ]Ordered By: Caden Jarrell on 03-15-2022 MCH (RBC) [Entitic mass] 32.1 pg 24.7-34.3 [facility] MCHC Auto (RBC) [Mass/Vol]Or dered By: Caden Jarrell on 03-15-2022 MCHC (RBC) [Mass/Vol] 34.7 g/dL 32.0-35.0 [facility] MCV Auto (RBC) [Entitic vol] Ordered By: Caden Jarrell on 03-15-2022 MCV (RBC) [Entitic vol] 92.3 fL 80-100 [facility] Monocyte distribution width [Entitic volume] in Blood by AutomatedOrdered By: Caden Jarrell on 03-15-2022 Monocyte distribution width Auto (Bld) [Entitic vol] 19.45 % 0.00-20.00 [facility] Monocytes Auto (Bld) [#/Vol] Ordered By: Caden Jarrell on 03-15-2022 Monocytes (Bld) [#/Vol] 0.8 10*3/uL 0.0-0.8 [facility] Monocytes/100 WBC Auto (Bld) Ordered By: Caden Jarrell on 03-15-2022 Monocytes/100 WBC (Bld) 10.2 % . [facility] Neutrophils Auto (Bld) [#/Vo l]Ordered By: Caden Jarrell on 03-15-2022 Neutrophils (Bld) [#/Vol] 6.1 10*3/uL 1.8-7.7 [facility] Neutrophils/100 WBC Auto (Bl d)Ordered By: Caden Jarrell on 03-15-2022 Neutrophils/100 WBC (Bld) 78.1 % . [facility] No Panel InformationOrdered By: Caden Jarrell on 03-15-2022 Estimated GFR () 49 mL/Min [facility] Comment on above: GFR estimated refere nce range: According to KDOQI guidelines, <60 ml/min/1.73m2 is sufficient to diagnose a patient with chronic kidney disease. Pharmacy Creatinine Clearance (Chem 43.20 [facility] Nucleated erythrocytes [Pres ence] in Blood by Automated countOrdered By: Caden Jarrell on 03-15-2022 Nucleated RBC Auto Ql (Bld) 0.1 /100{WBC} 0-0.5 [facility] Platelet mean volume Auto (B ld) [Entitic vol]Ordered By: Caden Jarrell on 03-15-2022 Platelet mean volume (Bld) [Entitic vol] 7.1 fL 6.3-10.7 [facility] Platelet poor plasma interna tional normalized ratio (INR) by coagulation assay (relatOrdered By: Caden Jarrell on 03-15-2022 INR Coag (PPP) [Relative time] 1.2 {INR} [facility] [facility] Comment on above: INR Therapeutic Rang [...] (Bld) [#/Vol] 277 10*3/uL 150-450 [facility] RBC Auto (Bld) [#/Vol]Ordere d By: Caden Jarrell on 03-15-2022 RBC (Bld) [#/Vol] 3.43 10*6/uL 3.60-5.00 [facility] Serum or plasma anion gap de terminationOrdered By: Caden Jarrell on 03-15-2022 Anion gap [Moles/Vol] 14.5 mmol/L 6.0-15.0 [facility] Serum or plasma calcium sigifredo urement (mass/volume)Ordered By: Caden Jarrell on 03-15-2022 Calcium [Mass/Vol] 9.3 mg/dL 8.2-10.2 [facility] Serum or plasma chloride matti surement (moles/volume)Ordered By: Caden Jarrell on 03-15-2022 Chloride [Moles/Vol] 95 mmol/L 95-114 [facility] Serum or plasma creatine kin ase MB (CKMB)/total creatine kinase (CK) ratio by calculaOrdered By: Caden Jarrell on 03-15-2022 CK.MB Calc [Catalytic fraction] 5.1 % 0.00-2.50 [facility] Serum or plasma creatine kin ase MB measurement (mass/volume)Ordered By: Caden Jarrell on 03-15-2022 CK.MB [Mass/Vol] 1.7 ng/mL 0.6-6.3 [facility] Serum or plasma glucose sigifredo urement (mass/volume)Ordered By: Caden Jarrell on 03-15-2022 Glucose [Mass/Vol] 129 mg/dL 70-100 [facility] Comment on above: ADA recommended refe rence rangeRandom Glucose Reference Range is dependent on time and content of last meal. Glucose of more than 200 mg/dL in a nonstressed, ambulatory subject supports the diagnosis of Diabetes Mellitus. Serum or plasma potassium me asurement (moles/volume)Ordered By: Caden Jarrell on 03-15-2022 Potassium [Moles/Vol] 3.4 mmol/L 3.5-5.1 [facility] Serum or plasma sodium measu rement (moles/volume)Ordered By: Caden Jarrell on 03-15-2022 Sodium [Moles/Vol] 129 mmol/L 136-146 [facility] Serum or plasma total carbon dioxide measurement (moles/volume)Ordered By: Caden Jarrell on 03-15-2022 CO2 [Moles/Vol] 22.9 mmol/L 22.0-30.0 [facility] Serum or plasma urea nitroge n measurement (mass/volume)Ordered By: Caden Jarrell on 03-15-2022 Urea nitrogen [Mass/Vol] 14 mg/dL 9 [facility] Troponin I.cardiac [Mass/vol ume] in Serum or Plasma by High sensitivity methodOrdered By: Caden Jarrell on 03-15-2022 Troponin I.cardiac High sensitivity method [Mass/Vol] 24 pg/mL 0- [facility] WBC Auto (Bld) [#/Vol]Ordere d By: Caden Jarrell on 03-15-2022 WBC (Bld) [#/Vol] 7.8 10*3/uL 3.8-11.6 [facility] CBC AUTO DIFFon 12-19-2021 BASO # 0.0 103/ul Normal 0.0-0.1 [facility] Comment on above: Performed By: #### H STROPN #### [facility] [address] [place] [address] Dr. Debra Blake Basophils/100 WBC (Bld) 0.5 % Normal 0.2-2.0 [facility] Comment on above: Performed By: #### H STROPN #### [facility] [address] [address] [address] Debra Blake EO # 0.1 103/ul Normal 0.0-0.7 [facility] Comment on above: Performed By: #### H STROPN #### [facility] [address] [place] [address] Dr. Debra Blake Eosinophils/100 WBC (Bld) 1.4 % Normal 0.9-7.0 [facility] Comment on above: Performed By: #### H STROPN #### [facility] [address] [place] [address] Dr. Debra Blake Erythrocyte distribution width (RBC) [Ratio] 14.1 % Normal 11.0-15.0 [facility] Comment on above: Performed By: #### H STROPN #### [facility] [address] [place] [address] Dr. Debra Blake Hematocrit (Bld) [Volume fraction] 26.2 % Critically low 36.0-48.0 [facility] Comment on above: Performed By: #### H STROPN #### [facility] [address] [place] [address] Dr. Debra Blake Hemoglobin (Bld) [Mass/Vol] 9.1 g/dL Critically low 12.0-16.0 [facility] Comment on above: Performed By: #### H STROPN #### [facility] [address] [place] [address] Dr. Debra Blake IG # 0.03 10e3/ul Normal 0.00-0.03 [facility] Comment on above: Performed By: #### H STROPN #### [facility] [address] [place] [address] Dr. Debra Blake IG % 0.4 % Normal 0.0-0.5 [facility] Comment on above: Performed By: #### H STROPN #### [facility] [address] [place] [address] Dr. Debra Blake LYMPH # 1.5 103/ul Normal 1.2-3.8 [facility] Comment on above: Performed By: #### H STROPN #### [facility] [address] [place] [address] Dr. Debra Blake Lymphocytes/100 WBC (Bld) 19.0 % Critically low 20.5-60.0 [facility] Comment on above: Performed By: #### H STROPN #### [facility] [address] [place] [address] Dr. Debra Blake MANUAL DIFF REQ NO Normal [facility] Comment on above: Performed By: #### H STROPN #### [facility] [address] [place] [address] Dr. Debra Blake MCH (RBC) [Entitic mass] 34.3 pg Critically high 26.7-3 4.0 [facility] Comment on above: Performed By: #### H STROPN #### [facility] [address] [place] [address] Dr. Debra Blake MCHC (RBC) [Mass/Vol] 34.7 g/dL Normal 29.9-35.2 [facility] Comment on above: Performed By: #### H STROPN #### [facility] [address] [place] [address] Dr. Debra Blake MCV (RBC) [Entitic vol] 98.9 fL Normal 81.0-99.0 [facility] Comment on above: Performed By: #### H STROPN #### [facility] [address] [place] [address] Dr. Debra Blake MONO # 0.8 103/ul Normal 0.3-0.8 [facility] Comment on above: Performed By: #### H STROPN #### [facility] [address] [place] [address] Dr. Debra Blake Monocytes/100 WBC (Bld) 10.0 % Normal 1.7-12.0 [facility] Comment on above: Performed By: #### H STROPN #### [facility] [address] [place] [address] Dr. Debra Blake NEUT # 5.5 103/ul Normal 1.4-6.5 [facility] Comment on above: Performed By: #### H STROPN #### [facility] [address] [place] [address] Dr. Debra Blake Neutrophils/100 WBC (Bld) 68.7 % Normal 43.0-75.0 [facility] Comment on above: Performed By: #### H STROPN #### [facility] [address] [place] [address] Dr. Debra Blake Platelet mean volume (Bld) [Entitic vol] 9.5 fL Normal 9.5-13.5 [facility] Comment on above: Performed By: #### H STROPN #### [facility] [address] [place] [address] Dr. Debra Blake PLT 300 103/ul Normal 150-450 [facility] Comment on above: Performed By: #### H STROPN #### [facility] [address] [place] [address] Dr. Debra Blake RBC 2.65 106/ul Critically low 4.20-5.40 [facility] Comment on above: Performed By: #### H STROPN #### [facility] [address] [place] [address] Dr. Debra Blake WBC 8.1 103/ul Normal 4.0-11.0 [facility] Comment on above: Performed By: #### H STROPN #### [facility] [address] [place] [address] Dr. Debra Blake Covid-19 PCR ([facility])on 12-09 SARS-CoV-2 (COVID-19) RNA YVONNE+probe Ql (Unsp spec) Not detected Normal NOT DETECTED [facility] Comment on above: Result Comment: When diagnostic [...] for this test is supported by the [employer] of Health and Human Service's declaration that [...] used). Performed By: #### C VDTBH #### [facility] [address] [place] [address] Dr. Debra Blake ER URINE PROFILEon 2 Bilirubin Ql (U) Negative Normal NEGATIVE [facility] Comment on above: Performed By: #### H STROPN #### [facility] [address] [address] [address] Debra Blake Clarity (U) CLEAR Normal CLEAR [facility] Comment on above: Performed By: #### H STROPN #### [facility] [address] [place] [address] Dr. Debra Blake Color (U) LT. YELLOW Normal YELLOW [facility] Comment on above: Performed By: #### H STROPN #### [facility] [address] [place] [address] Dr. Debra Blake ERUAHD A micrscopic examina tion will be performed if indicated. Normal [facility] Comment on above: Performed By: #### H STROPN #### [facility] [address] [place] [address] Dr. Debra Blake Glucose Ql (U) Negative Normal NEGATIVE [facility] Comment on above: Performed By: #### H STROPN #### [facility] [address] [place] [address] Dr. Debra Blake Hemoglobin Ql (U) Negative Normal NEGATIVE [facility] Comment on above: Performed By: #### H STROPN #### [facility] [address] [place] [address] Dr. Debra Blake Ketones Ql (U) Negative Normal NEGATIVE [facility] Comment on above: Performed By: #### H STROPN #### [facility] [address] [place] [address] Dr. Debra Blake LEUKOCYTES Negative Normal NEGATIVE [facility] Comment on above: Performed By: #### H STROPN #### [facility] [address] [place] [address] Dr. Debra Blake Nitrite Ql (U) Negative Normal NEGATIVE [facility] Comment on above: Performed By: #### H STROPN #### [facility] [address] [place] [address] Dr. Debra Blake pH (U) 7.0 [pH] Normal 5-9 [facility] Comment on above: Performed By: #### H STROPN #### [facility] [address] [place] [address] Dr. Debra Blake SPEC GRAVITY 1.010 Normal 1.005-<=1. 025 [facility] Comment on above: Performed By: #### H STROPN #### [facility] [address] [place] [address] Dr. Debra Blake UA PROTEIN TRACE Normal NEGATIVE/ TRACE [facility] Comment on above: Performed By: #### H STROPN #### [facility] [address] [place] [address] Dr. Debra Blake UR MICRO IND NOT INDICATED Normal [facility] Comment on above: Performed By: #### H STROPN #### [facility] [address] [place] [address] Dr. Debra Blake Urobilinogen Qn (U) 0.2 {Pascale'U}/dL Normal 0.2 - 1. 0 [facility] Comment on above: Performed By: #### H KINGSTONPN #### [facility] [address] [place] [address] Dr. Debra Blake ETHANOL (BLD ALC)on 12-20-19 ALC NOTE NOTE: 80 mg/dl is legal limit for a blood alcohol level Normal [facility] Comment on above: Performed By: #### E TH #### [facility] [address] [place] [address] Dr. Debra Blake Ethanol [Mass/Vol] mg/dL Normal [facility] Comment on above: Performed By: #### E TH #### [facility] [address] [place] [address] Dr. Debra Blake PROF CHEM 8 (BAS METB)on Anion gap [Moles/Vol] 14.8 mmol/L Normal Th [facility] Comment on above: Performed By: #### H KINGSTONPN, CMP #### [facility] [address] [place] [address] Dr. Debra Blake Calcium [Mass/Vol] 7.6 mg/dL Critically low 8.5-10.[address] [facility] Comment on above: Performed By: #### H GARY, CMP #### [facility] [address] [address] [address] Debra Blake Chloride [Moles/Vol] 93 mmol/L Critically low 98-107 [facility] Comment on above: Performed By: #### H STROPN, CMP #### [facility] [address] [address] [address] Debra Blake CO2 [Moles/Vol] 30.6 mmol/L Normal 21.0-32.0 [facility] Comment on above: Performed By: #### H STROPN, CMP #### [facility] [address] [place] [address] Dr. Debra Blake Creatinine [Mass/Vol] 2.27 mg/dL Critically high 0.55-1.02 [facility] Comment on above: Performed By: #### H STROPN, CMP #### [facility] [address] [place] [address] Dr. Debra Blake EGFR-AF ARGENTINE 27 mL/min/1.73m2 Critically low >=60 [facility] Comment on above: Performed By: #### H STROPN, CMP #### [facility] [address] [address] [address] Debra Blake EGFR-NON AF ARGENTINE 22 mL/min/1.73m2 Critically low >=60 [facility] Comment on above: Performed By: #### H STROPN, CMP #### [facility] [address] [place] [address] Dr. Debra Blake Glucose [Mass/Vol] 114 mg/dL Critically high 74-106 [facility] Comment on above: Performed By: #### H STROPN, CMP #### [facility] [address] [address] [address] Debra Blake Potassium [Moles/Vol] 3.4 mmol/L Critically low 3.5-5.1 [facility] Comment on above: Performed By: #### H STROPN, CMP #### [facility] [address] [address] [address] Debra Blake Sodium [Moles/Vol] 135 mmol/L Critically low 136-[address] [facility] Comment on above: Performed By: #### H STROPN, CMP #### [facility] [address] [place], [place] [address] Dr. Debra Blake Urea nitrogen [Mass/Vol] 20.0 mg/dL Critically high 7.0-18 .0 [facility] Comment on above: Performed By: #### H STROPN, CMP #### [facility] [address] [place], [place] [address] Dr. Debra Blake Urea nitrogen/Creatinine [Mass ratio] 8.8 mg/mg Normal [facility] Comment on above: Performed By: #### H STROPN, CMP #### [facility] [address] [place], [place] [address] Dr. Debra Blake TROPONIN, HIGH SENSITIVITYon 12-19-2021 HSTROP 16.7 pg/mL Normal 4.0-51.3 [facility] Comment on above: Result Comment: CUT- OFF POINTS HAVE BEEN ESTABLISHED BASED ON THE FOURTH UNIVERSAL DEFINITIONS OF MYOCARDIAL INFARCTION. THE UPPER REFERENCE LIMIT (URL) OF TROPONIN, DEFINED THE 99TH PERCENTILE OF cTnI DISTRIBUTION IN A REFERENCE POPULATION, HAS BEEN CONFIRMED THE DECISION THRESHOLD FOR MA DIAGNOSIS. Performed By: #### H STROPN #### [facility] [address] [address] [address] Debra Blake XR CHEST 1 Von [...] by: DENISE MESSER Date: 2021-12-19 15:57 Normal [facility] Consultation Noteon 12-16-19 Consultation Note [id number]:127 Normal [facility] RAD - CT Reporton 12-15-2021 RAD - CT Report [id number]#[id number]:127 Normal [facility] Basophils Auto (Bld) [#/Vol] Ordered By: Hong Jewell on 12-10-2021 Basophils (Bld) [#/Vol] 0.1 10*3/uL 0.0-0.2 [facility] Basophils/100 WBC Auto (Bld) Ordered By: Hong Jewell on 12-10-2021 Basophils/100 WBC (Bld) 0.9 % . [facility] Blood hemoglobin measurement (mass/volume)Ordered By: Hong Jewell on 12-10-2021 Hemoglobin (Bld) [Mass/Vol] 7.5 g/dL 11.8-15.4 [facility] Blood leukocytes automated c ount (number/volume)Ordered By: Hong Jewell on 12-10-2021 WBC (Bld) [#/Vol] 6.3 10*3/uL 4.5-11.0 [facility] Creatinine and Glomerular fi ltration rate.predicted panel (S/P/Bld)Ordered By: Hong Jewell on 12-10-2021 Creatinine [Mass/Vol] 1.84 mg/dL 0.44-1.03 [facility] Eosinophils Auto (Bld) [#/Vo l]Ordered By: Hong Jewell on 12-10-2021 Eosinophils (Bld) [#/Vol] 0.2 10*3/uL 0.0-0.45 [facility] Eosinophils/100 WBC Auto (Bl d)Ordered By: Hong Jewell on 12-10-2021 Eosinophils/100 WBC (Bld) 3.5 % . [facility] Erythrocyte distribution wid th Auto (RBC) [Ratio]Ordered By: Hong Jewell on 12-10-2021 Erythrocyte distribution width (RBC) [Ratio] 16.3 % 11.9-15.3 [facility] Estimated glomerular filtrat ion rate (GFR) non- AmericanOrdered By: Hong Jewell on 12-10-2021 GFR/1.73 sq M.predicted among non-blacks MDRD (S/P/Bld) [Vol rate/Area] 28 mL/Min [facility] Hematocrit Auto (Bld) [Volum e fraction]Ordered By: Hong Jewell on 12-10-2021 Hematocrit (Bld) [Volume fraction] 22.8 % 34.0-46.4 [facility] Laboratory - Chemistry and C hemistry - challengeOrdered By: Hong Jewell on 12-10-2021 Magnesium [Mass/Vol] 0.7 mg/dL 1.6-2.6 [facility] Comment on above: Results called at 0825 on 12/10/21 Laboratory - Hematology and Cell countsOrdered By: Hong Jewell on 12-10-2021 Nucleated RBC/100 WBC (Bld) [Ratio] 0.0 % 0-0.5 [facility] Lymphocytes Auto (Bld) [#/Vo l]Ordered By: Hong Jewell on 12-10-2021 Lymphocytes (Bld) [#/Vol] 1.4 10*3/uL 1.00-4.8 [facility] Lymphocytes/100 WBC Auto (Bl d)Ordered By: Hong Jewell on 12-10-2021 Lymphocytes/100 WBC (Bld) 21.7 % . [facility] MCH Auto (RBC) [Entitic mass ]Ordered By: Hong Jewell on 12-10-2021 MCH (RBC) [Entitic mass] 34.3 pg 24.7-34.3 [facility] MCHC Auto (RBC) [Mass/Vol]Or dered By: Hong Jewell on 12-10-2021 MCHC (RBC) [Mass/Vol] 33.0 g/dL 32.0-35.0 [facility] MCV Auto (RBC) [Entitic vol] Ordered By: Hong Jewell on 12-10-2021 MCV (RBC) [Entitic vol] 103.8 fL 80-100 [facility] Monocytes Auto (Bld) [#/Vol] Ordered By: Hong Jewell on 12-10-2021 Monocytes (Bld) [#/Vol] 0.7 10*3/uL 0.0-0.8 [facility] Monocytes/100 WBC Auto (Bld) Ordered By: Hong Jewell on 12-10-2021 Monocytes/100 WBC (Bld) 11.2 % . [facility] Neutrophils Auto (Bld) [#/Vo l]Ordered By: Hong Jewell on 12-10-2021 Neutrophils (Bld) [#/Vol] 3.9 10*3/uL 1.8-7.7 [facility] Neutrophils/100 WBC Auto (Bl d)Ordered By: Hong Jewell on 12-10-2021 Neutrophils/100 WBC (Bld) 62.7 % . [facility] No Panel InformationOrdered By: Hong Jewell on 12-10-2021 Estimated GFR () 34 mL/Min [facility] Comment on above: GFR estimated refere nce range: According to KDOQI guidelines, <60 ml/min/1.73m2 is sufficient to diagnose a patient with chronic kidney disease. Pharmacy Creatinine Clearance (Chem 36.70 [facility] Platelet mean volume Auto (B ld) [Entitic vol]Ordered By: Hong Jewell on 12-10-2021 Platelet mean volume (Bld) [Entitic vol] 6.7 fL 6.3-10.7 [facility] Platelets Auto (Bld) [#/Vol] Ordered By: Hong Jewell on 12-10-2021 Platelets (Bld) [#/Vol] 356 10*3/uL 150-450 [facility] RBC Auto (Bld) [#/Vol]Ordere d By: Hong Jewell on 12-10-2021 RBC (Bld) [#/Vol] 2.20 10*6/uL 3.60-5.00 [facility] Serum or plasma anion gap de terminationOrdered By: Hong Jewell on 12-10-2021 Anion gap [Moles/Vol] TNP [facility] Comment on above: Test not performed Serum or plasma calcium sigifredo urement (mass/volume)Ordered By: Hong Jewell on 12-10-2021 Calcium [Mass/Vol] 9.0 mg/dL 8.2-10.2 [facility] Serum or plasma chloride matti surement (moles/volume)Ordered By: Hong Jewell on 12-10-2021 Chloride [Moles/Vol] 104 mmol/L 95-114 [facility] Serum or plasma glucose sigifredo urement (mass/volume)Ordered By: Hong Jewell on 12-10-2021 Glucose [Mass/Vol] 137 mg/dL 70-100 [facility] Comment on above: ADA recommended refe rence range Random Glucose Reference Range is dependent on time and content of last meal. Glucose of more than 200 mg/dL in a nonstressed, ambulatory subject supports the diagnosis of Diabetes Mellitus. Serum or plasma potassium me asurement (moles/volume)Ordered By: Hong Jewell on 12-10-2021 Potassium [Moles/Vol] 4.7 mmol/L 3.5-5.1 [facility] Serum or plasma sodium measu rement (moles/volume)Ordered By: Hong Jewell on 12-10-2021 Sodium [Moles/Vol] 131 mmol/L 136-146 [facility] Serum or plasma total carbon dioxide measurement (moles/volume)Ordered By: Hong Jewell on 12-10-2021 CO2 [Moles/Vol] 21.1 mmol/L 22.0-30.0 [facility] Serum or plasma urea nitroge n measurement (mass/volume)Ordered By: Hong Jewell on 12-10-2021 Urea nitrogen [Mass/Vol] 21 mg/dL 9-23 [facility] Serum DNA double strand anti body assay (units/volume)Ordered By: William Esposito on 12-09-2021 DNA double strand Ab Qn (S) [IU]/mL 0-9 [facility] Comment on above: Negative <5 Equivocal 5 - 9 Positive >9 Performed at: [employer] [facility] [address] [id number] [employer] Developer: Sanford Mehta PhD, Phone: [phone] Albumin [Mass/volume] in Ser um or PlasmaOrdered By: William Esposito on 12-07-2021 Albumin [Mass/Vol] 2.6 g/dL 2.9-4.4 [facility] Albumin/Protein.total in 24 hour Urine by ElectrophoresisOrdered By: William Esposito on 12-07-2021 Albumin Elph (24H U) [Mass fraction] 69.2 % . [facility] Creatinine [Mass/volume] in UrineOrdered By: William Esposito on 12-07-2021 Creatinine (U) [Mass/Vol] 153.0 mg/dL [facility] Comment on above: No reference range e stablished Gamma globulin/Protein.total in 24 hour Urine by ElectrophoresisOrdered By: William Esposito on 12-07-2021 Gamma globulin Elph (24H U) [Mass fraction] 8.2 % . [facility] IgA [Mass/volume] in Serum o r PlasmaOrdered By: William Esposito on 12-07-2021 IgA [Mass/Vol] 357 mg/dL 87-352 [facility] IgG [Mass/volume] in Serum o r PlasmaOrdered By: William Esposito on 12-07-2021 IgG [Mass/Vol] 794 mg/dL [phone] [facility] IgM [Mass/volume] in Serum o r PlasmaOrdered By: William Esposito on 12-07-2021 IgM [Mass/Vol] 109 mg/dL 26-217 [facility] Comment on above: Performed at: [employer] [facility] [address] [id number] [employer] Developer: Sanford Mehta PhD, Phone: [phone] Immunofixation for UrineOrde red By: William Esposito on 12-07-2021 Interpretation Immunofixation (U) [Interp] Comment: . [facility] Comment on above: Presence of monoclon al protein is unclear at this time. Suggest repeat in 3 to 6 months if clinically indicated. Performed at: [facility] [id number] [employer]: Sanford Mehta PhD, Phone: [phone] Immunoglobulin light chains. kappa.free [Mass/volume] in SerumOrdered By: William Esposito on 12-07-2021 Immunoglobulin light chains.kappa.free (S) [Mass/Vol] 81.9 mg/L 3.3-19.4 [facility] Immunoglobulin light chains. kappa.free/Immunoglobulin light chains.lambda.free [MassOrdered By: William Esposito on 12-07-2021 Immunoglobulin light chains.kappa.free/Immuno globulin light chains.lambda.free (S) [Mass ratio] 1.31 0.26-1.65 [facility] Comment on above: Performed at: [facility] [facility] [address] [id number] [employer] Developer: Sanford Mehta PhD, Phone: [phone] Immunoglobulin light chains. lambda.free [Mass/volume] in Serum or PlasmaOrdered By: William Esposito on 12-07-2021 Immunoglobulin light chains.lambda.free [Mass/Vol] 62.3 mg/L 5.7-26.3 [facility] No Panel InformationOrdered By: William Esposito on 12-07-2021 Urine Random Prot Electrophor Note See comment . [facility] Comment on above: Protein electrophore sis scan will follow via computer, mail, or composite worker delivery. Performed at: [facility] [id number] [employer]: Sanford Mehta PhD, Phone: [phone] Protein Electrophoresis M-Alexei Not observed g/dL Not Observed [facility] Protein Electrophoresis Note See comment . [facility] Comment on above: Protein electrophore sis scan will follow via computer, mail, or composite worker delivery. Performed at: - [facility] [id number] Node Js Developer: Sanford Mehta PhD, Phone: [phone] Serum Immunofixation See comment . [facility] Comment on above: No monoclonality det ected. Protein [Mass/volume] in Ser um or PlasmaOrdered By: William Vaibhav on 12-07-2021 Protein [Mass/Vol] 5.2 g/dL 6.0-8.5 [facility] Protein [Mass/volume] in Uri neOrdered By: William Vaibhav on 12-07-2021 Protein (U) [Mass/Vol] 51.3 mg/dL Not Estab. [facility] Protein.monoclonal/Protein.t otal in 24 hour Urine by ElectrophoresisOrdered By: William Vaibhav on 12-07-2021 Protein.monoclonal Elph (24H U) [Mass fraction] Not observed % Not Observed [facility] Serum globulin measurement ( mass/volume)Ordered By: William Vaibhav on 12-07-2021 Globulin (S) [Mass/Vol] 2.6 g/dL 2.2-3.9 [facility] Serum or plasma albumin/glob ulin mass ratioOrdered By: William Vaibhav on 12-07-2021 Albumin/Globulin [Mass ratio] 1.0 {ratio} 0.7-1.7 [facility] Serum or plasma alpha 1 glob ulin measurement by electrophoresis (mass/volume)Ordered By: William Vaibhav on 12-07-2021 Alpha 1 globulin Elph [Mass/Vol] 0.3 g/dL 0.0-0.4 [facility] Serum or plasma alpha 2 glob ulin measurement by electrophoresis (mass/volume)Ordered By: William Vaibhav on 12-07-2021 Alpha 2 globulin Elph [Mass/Vol] 0.7 g/dL 0.4-1.0 [facility] Serum or plasma beta globuli n measurement by electrophoresis (mass/volume)Ordered By: William Vaibhav on 12-07-2021 Beta globulin Elph [Mass/Vol] 0.7 g/dL 0.7-1.3 [facility] Serum or plasma gamma globul in measurement by electrophoresis (mass/volume)Ordered By: William Vaibhav on 12-07-2021 Gamma globulin Elph [Mass/Vol] 0.9 g/dL 0.4-1.8 [facility] Troponin I.cardiac [Mass/vol ume] in Serum or Plasma by High sensitivity methodOrdered By: Hong Jewell on 12-07-2021 Troponin I.cardiac High sensitivity method [Mass/Vol] 7 pg/mL 0-15 [facility] Urine alpha 1 globulin/total protein by electrophoresisOrdered By: William Vaibhav on 12-07-2021 Alpha 1 globulin Elph (U) [Mass fraction] 3.1 % . [facility] Urine alpha 2 globulin/total protein ratio by electrophoresisOrdered By: William Vaibhav on 12-07-2021 Alpha 2 globulin Elph (U) [Mass fraction] 6.0 % . [facility] Urine beta globulin measurem ent by electrophoresis (mass/volume)Ordered By: William Vaibhav on 12-07-2021 Beta globulin Elph (U) [Mass/Vol] 13.5 % . [facility] Urine culture routineOrdered By: Hong Jewell on 12-07-2021 Bacteria identified Cx Nom (U) Klebsiella oxytoca [facility] Urine protein/creatinine rat ioOrdered By: William Vaibhav on 12-07-2021 Protein/Creatinine (U) [Ratio] 359 mg/g{Cre} 0-200 [facility] Albumin [Mass/volume] in Ser um or PlasmaOrdered By: William Vaibhav on 12-06-2021 Albumin [Mass/Vol] 3.0 g/dL 3.2-5.5 [facility] CULTURE URINEon 12-06-2021 CULTURE URINE Isolate 1 [...] Trimethoprim/Sulfamethoxaz ole <=20 S F Normal [facility] Comment on above: Performed By: #### H STROPN #### [facility] [address] [address] [address] Debra Blake Glucose Glucometer (BldC) [M ass/Vol]Ordered By: Hong Jewell on 12-06-2021 Glucose [Mass/Vol] 145 mg/dL [facility] Comment on above: Random Glucose Refer ence Range is dependent on time and content of last meal. Glucose of more than 200 mg/dL in a nonstressed, ambulatory subject supports the diagnosis of Diabetes Mellitus. No Panel InformationOrdered By: Hong Jewell on 12-06-2021 Anti-Nuclear Antibody Comment 2 See comment . [facility] Comment on above: For more information [...] titers Nucleosomes, Histones Drug-induced SLE Speckled Sm, BULB ASSEMBLER, SCL-70, SLE,MCTD,PSS (diffuse form), SS-A/SS-B Sjogrens Nucleolar SCL-70, PM-1/SCL High titers Scleroderma, PM/DM Centromere Centromere PSS (limited form) w/Crest syndrome variable Nuclear Dot [id number] Primary Biliary Cirrhosis Nuclear GP210, Primary Biliary Cirrhosis Membrane chun A,B,C Performed at: CB - [facility] [address] [id number] Node Js Developer: Sanford Mehta PhD, Phone: [phone] OSMOLALITY URINEon 2 Osmolality, Urine 180 mOsmol/kg Normal [facility] Comment on above: Result Comment: 24 h r : 300 - 900 Random: 50 - 1400 After 12hr fluid restriction: >850 Performed By: #### H STROPN #### [facility] [address] [address] [address] Debra Blake Serum nuclear antibody titer Ordered By: oHng Jewell on 12-06-2021 Nuclear Ab (S) [Titer] Positive . [facility] Comment on above: Negative <1:80 Borderline 1:80 Positive >1:80 Serum or plasma cyclic adeno sine monophosphate measurement (moles/volume)Ordered By: Hong Jewell on 12-06-2021 Adenosine monophosphate.cyclic [Moles/Vol] 10 units 0-19 [facility] Comment on above: Negative <20 Weak positive 20 - 39 Moderate positive 40 - 59 Strong positive >59 Performed at: - [facility] [id number] Node Js Developer: Meli Bishop MD, Phone: [phone] Serum or plasma ethanol sigifredo urement (mass/volume)Ordered By: Rehan Russ on 12-06-2021 Ethanol [Mass/Vol] mg/dL [facility] Ethanol [Mass/Vol] TNP [facility] Comment on above: Test not performed Serum speckled pattern antin uclear antibody (MATY) titerOrdered By: Hong Jewell on 12-06-2021 Speckled nuclear Ab pattern (S) [Titer] 1:80 . [facility] Comment on above: ICAP nomenclature: A C-2,4,5,29 Amphetamine Screen Ql (U)Ord ered By: Hong Jewell on 12-05-2021 Amphetamines Ql (U) Negative Negative [facility] Automated erythrocytes count in urine sediment (number/area)Ordered By: Hong Jewell on 12-05-2021 RBC Auto (Urine sed) [#/Area] 1-2 [HPF] 0-4 [facility] Automated leukocytes count i n urine sediment (number/area)Ordered By: Hong Jewell on 12-05-2021 WBC Auto (Urine sed) [#/Area] Innumerable [HPF] 0-4 [facility] Barbiturates [Presence] in U rineOrdered By: Hong Jewell on 12-05-2021 Barbiturates Ql (U) Negative Negative [facility] Benzodiazepines [Presence] i n UrineOrdered By: Hong Jewell on 12-05-2021 Benzodiazepines Ql (U) Positive Negative [facility] Bilirubin Test strip Ql (U)O rdered By: Hong Jewell on 12-05-2021 Bilirubin Ql (U) Negative Negative [facility] biopsyOrdered By: Patricia Jewell on 12-05-2021 Transferrin [Mass/Vol] 175 mg/dL 180-380 [facility] Cannabinoids [Presence] in U rine by Screen methodOrdered By: Hong Jewell on 12-05-2021 Cannabinoids Screen Ql (U) Negative Negative [facility] Comment on above: These are unconfirme d results and should not be used for legal purposes. Drug Cut-Off Concentration: AMPH 1000 ng/mL GAYLE 200 ng/mL ISAEL 200 ng/mL COCM 300 ng/mL OP 300 ng/mL PCP 25 ng/mL THC 20 ng/mL Color Auto (U)Ordered By: Nikos Jewell on 12-05-2021 Color (U) Yellow Yellow [facility] Ferritin [Mass/volume] in Se rum or PlasmaOrdered By: Hong Jewell on 12-05-2021 Ferritin [Mass/Vol] 80.8 ng/mL 11-306.8 [facility] Iron [Mass/volume] in Serum or PlasmaOrdered By: Hong Jewell on 12-05-2021 Iron [Mass/Vol] 22 ug/dL 40-150 [facility] Iron binding capacity [Mass/ volume] in Serum or PlasmaOrdered By: Hong Jewell on 12-05-2021 Iron binding capacity [Mass/Vol] 245 ug/dL 255-450 [facility] Ketones Auto test strip (U) [Mass/Vol]Ordered By: Hong Jewell on 12-05-2021 Ketones (U) [Mass/Vol] Negative Negative [facility] Laboratory - Drug toxicology Ordered By: Hong Jewell on 12-05-2021 Opiates Ql (U) Negative Negative [facility] - UrinalysisOrder ed By: Hong Jewell on 12-05-2021 Hyaline casts LM Ql (Urine sed) 0-8 [LPF] 0-8 [facility] Lactate dehydrogenase measur ement (enzymatic activity/volume)Ordered By: Hong Jewell on 12-05-2021 LDH (Unsp spec) [Catalytic activity/Vol] 135 U/L 45-190 [facility] Nitrite Test strip Ql (U)Ord ered By: Hong Jewell on 12-05-2021 Nitrite Ql (U) Negative Negative [facility] No Panel InformationOrdered By: Hong Jewell on 12-05-2021 25-Hydroxy Vitamin D Total 21.8 ng/mL 30-100 [facility] Comment on above: VITAMIN D STATUS 25( OH)VITAMIN D RANGE (ng/mL) Deficient <20 Insufficient 20 to <30 Sufficient 30 to 100 Reference: Maggie MF,Jose VALENZUELA, Gilberto VARGAS, et al. Evaluation,treatment, and prevention of vitamin D deficiency; an Endocrine Society clinical practice guideline. JCEM. 2010; 96(7):1911-30. Vitamin C level <0.1 mg/dL 0.4-2.0 [facility] Comment on above: This test was develo ped and its performance characteristics determined by [facility]. It has not been cleared or approved by the Food and Drug Administration. Vitamin C deficiency is generally defined as plasma or serum concentrations less than 0.2 mg/dL and levels between 0.2 and 0.4 mg/dL are considered low. Performed at: - [facility] [id number] Node J[employer] Developer: Meli Bishop MD, Phone: [phone] Phencyclidine Screen Ql (U)O rdered By: Hong Jewell on 12-05-2021 Phencyclidine Ql (U) Negative Negative [facility] Protein Auto test strip (U) [Mass/Vol]Ordered By: Hong Jewell on 12-05-2021 Protein (U) [Mass/Vol] 30 mg/dL Negative [facility] Serum or plasma thyroxine (T 4) measurement (mass/volume)Ordered By: Hong Jewell on 12-05-2021 T4 [Mass/Vol] 7.19 ug/dL 5.39-11.82 [facility] Specific gravity Auto test s trip (U) [Rel density]Ordered By: Hong Jewell on 12-05-2021 Specific gravity (U) [Rel density] 1.013 1.001-1.03 0 [facility] Squamous epithelial cells de tection in urine sediment by light microscopyOrdered By: Hong Jewell on 12-05-2021 Epithelial cells.squamous LM Ql (Urine sed) 5-9 [HPF] 0-2 [facility] Thyroxine (T4) free [Mass/vo lume] in Serum or PlasmaOrdered By: Hong Jewell on 12-05-2021 Free T4 [Mass/Vol] 1.00 ng/dL 0.61-1.12 [facility] Urine bacteria detection by automated methodOrdered By: Hong Jewell on 12-05-2021 Bacteria Auto Ql (U) 4+ None Seen [facility] Urine clarity by refractomet ry automatedOrdered By: Hong Jewell on 12-05-2021 Clarity Refractometry automated (U) Cloudy Clear [facility] Urine cocaine detectionOrder ed By: Hong Jewell on 12-05-2021 Cocaine Ql (U) Negative Negative [facility] Urine glucose measurement by automated test strip (mass/volume)Ordered By: Hong Jewell on 12-05-2021 Glucose Auto test strip (U) [Mass/Vol] Normal mg/dL Normal [facility] Urine hemoglobin detection b y automated test stripOrdered By: Hong Jewell on 12-05-2021 Hemoglobin Auto test strip Ql (U) Negative Negative [facility] Urine leukocyte esterase det ection by automated test stripOrdered By: Hong Jewell on 12-05-2021 Leukocyte esterase Auto test strip Ql (U) 4+ Negative [facility] Urobilinogen Auto test strip (U) [Mass/Vol]Ordered By: Hong Jewell on 12-05-2021 Urobilinogen (U) [Mass/Vol] Normal mg/dL Normal [facility] pH Auto test strip (U)Ordere d By: Hong Jewell on 12-05-2021 pH (U) 5.5 [pH] 5.0-9.0 [facility] Activated partial thrombopla stin time (aPTT) in platelet poor plasma by coagulation aOrdered By: Hong Jewell on 12-04-2021 aPTT Coag (PPP) [Time] 29.9 s 25.1-36.5 [facility] CBC AUTO DIFFon 12-04-2021 BASO # 0.0 103/ul Normal 0.0-0.1 [facility] Comment on above: Performed By: #### H GARY, CMP #### [facility] [address] [place] [address] Dr. Debra Blake Basophils/100 WBC (Bld) 0.4 % Normal 0.2-2.0 [facility] Comment on above: Performed By: #### H STROPN, CMP #### [facility] [address] [place] [address] Dr. Debra Blake EO # 0.1 103/ul Normal 0.0-0.7 [facility] Comment on above: Performed By: #### H KINGSTONPN, CMP #### [facility] [address] [place] [address] Dr. Debra Blake Eosinophils/100 WBC (Bld) 1.3 % Normal 0.9-7.0 [facility] Comment on above: Performed By: #### H STROPN, CMP #### [facility] [address] [place] [address] Dr. Debra Blake Erythrocyte distribution width (RBC) [Ratio] 14.6 % Normal 11.0-15.0 [facility] Comment on above: Performed By: #### H STROPN, CMP #### [facility] [address] [place] [address] Dr. Debra Blake Hematocrit (Bld) [Volume fraction] 24.6 % Critically low 36.0-48.0 [facility] Comment on above: Performed By: #### H KINGSTONPN, CMP #### [facility] [address] [place] [address] Dr. Debra Blake Hemoglobin (Bld) [Mass/Vol] 8.6 g/dL Critically low 12.0-16.0 [facility] Comment on above: Performed By: #### H KINGSTONPN, CMP #### [facility] [address] [place] [address] Dr. Debra Blake IG # 0.04 10e3/ul Critically high 0.00-0.03 [facility] Comment on above: Performed By: #### H KINGSTONPN, CMP #### [facility] [address] [place] [address] Dr. Debra Blake IG % 0.6 % Critically high 0.0-0.5 [facility] Comment on above: Performed By: #### H GARY, CMP #### [facility] [address] [place] [address] Dr. Debra Blake LYMPH # 1.3 103/ul Normal 1.2-3.8 [facility] Comment on above: Performed By: #### H GARY, CMP #### [facility] [address] [place] [address] Dr. Debra Blake Lymphocytes/100 WBC (Bld) 19.7 % Critically low 20.5-60.0 [facility] Comment on above: Performed By: #### H KINGSTONPN, CMP #### [facility] [address] [place] [address] Dr. Debra Blake MANUAL DIFF REQ NO Normal [facility] Comment on above: Performed By: #### H STROPN, CMP #### [facility] [address] [place] [address] Dr. Debra Blake MCH (RBC) [Entitic mass] 34.3 pg Critically high 26.7-3 4.0 [facility] Comment on above: Performed By: #### H KINGSTONPN, CMP #### [facility] [address] [place], [place] [id number] Dr. Debra Blake MCHC (RBC) [Mass/Vol] 35.0 g/dL Normal 29.9-35.2 [facility] Comment on above: Performed By: #### H STROPN, CMP #### [facility] [address] [place] [address] Dr. Debra Blake MCV (RBC) [Entitic vol] 98.0 fL Normal 81.0-99.0 [facility] Comment on above: Performed By: #### H STROPN, CMP #### [facility] [address] [place] [address] Dr. Debra Blake MONO # 0.9 103/ul Critically high 0.3-0.8 [facility] Comment on above: Performed By: #### H STROPN, CMP #### [facility] [address] [place] [address] Dr. Debra Blake Monocytes/100 WBC (Bld) 12.7 % Critically high 1.7-12. 0 [facility] Comment on above: Performed By: #### H STROPN, CMP #### [facility] [address] [place] [address] Dr. Debra Blake NEUT # 4.4 103/ul Normal 1.4-6.5 [facility] Comment on above: Performed By: #### H STROPN, CMP #### [facility] [address] [place] [address] Dr. Debra Blake Neutrophils/100 WBC (Bld) 65.3 % Normal 43.0-75.0 [facility] Comment on above: Performed By: #### H STROPN, CMP #### [facility] [address] [place] [address] Dr. Debra Blake Platelet mean volume (Bld) [Entitic vol] 9.0 fL Critically low 9.5-13.5 [facility] Comment on above: Performed By: #### H STROPN, CMP #### [facility] [address] [place] [address] Dr. Debra Blake PLT 142 103/ul Critically low 150-450 [facility] Comment on above: Performed By: #### H STROPN, CMP #### [facility] [address] [address] [address] Debra Blake RBC 2.51 106/ul Critically low 4.20-5.40 [facility] Comment on above: Performed By: #### H STROPN, CMP #### [facility] [address] [place] [address] Dr. Debra Blake WBC 6.8 103/ul Normal 4.0-11.0 [facility] Comment on above: Performed By: #### H STROPN, CMP #### [facility] [address] [place] [address] Dr. Debra Blake BASO # 0.0 103/ul Normal 0.0-0.1 [facility] Comment on above: Performed By: #### C BC #### [facility] [address] [place] [address] Dr. Debra Blake Basophils/100 WBC (Bld) 0.5 % Normal 0.2-2.0 [facility] Comment on above: Performed By: #### C BC #### [facility] [address] [place] [address] Dr. Debra Blake EO # 0.1 103/ul Normal 0.0-0.7 [facility] Comment on above: Performed By: #### C BC #### [facility] [address] [place] [address] Dr. Debra Blake Eosinophils/100 WBC (Bld) 0.9 % Normal 0.9-7.0 [facility] Comment on above: Performed By: #### C BC #### [facility] [address] [place] [address] Dr. Debra Blake Erythrocyte distribution width (RBC) [Ratio] 14.6 % Normal 11.0-15.0 [facility] Comment on above: Performed By: #### C BC #### [facility] [address] [place] [address] Dr. Debra Blake Hematocrit (Bld) [Volume fraction] 26.2 % Critically low 36.0-48.0 [facility] Comment on above: Performed By: #### C BC #### [facility] [address] [place] [address] Dr. Debra Blake Hemoglobin (Bld) [Mass/Vol] 9.2 g/dL Critically low 12.0-16.0 [facility] Comment on above: Performed By: #### C BC #### [facility] [address] [place] [address] Dr. Debra Blake IG # 0.06 10e3/ul Critically high 0.00-0.03 [facility] Comment on above: Performed By: #### C BC #### [facility] [address] [place] [address] Dr. Debra Blake IG % 0.7 % Critically high 0.0-0.5 [facility] Comment on above: Performed By: #### C BC #### [facility] [address] [place] [address] Dr. Debra Blake LYMPH # 1.3 103/ul Normal 1.2-3.8 [facility] Comment on above: Performed By: #### C BC #### [facility] [address] [place] [address] Dr. Debra Blake Lymphocytes/100 WBC (Bld) 15.7 % Critically low 20.5-60.0 [facility] Comment on above: Performed By: #### C BC #### [facility] [address] [place] [address] Dr. Debra Blake MANUAL DIFF REQ NO Normal [facility] Comment on above: Performed By: #### C BC #### [facility] [address] [place] [address] Dr. Debra Blake MCH (RBC) [Entitic mass] 34.2 pg Critically high 26.7-3 4.0 [facility] Comment on above: Performed By: #### C BC #### [facility] [address] [place] [address] Dr. Debra Blake MCHC (RBC) [Mass/Vol] 35.1 g/dL Normal 29.9-35.2 [facility] Comment on above: Performed By: #### C BC #### [facility] [address] [address] [address] Debra Blake MCV (RBC) [Entitic vol] 97.4 fL Normal 81.0-99.0 [facility] Comment on above: Performed By: #### C BC #### [facility] [address] [address] [address] Debra Blake MONO # 1.1 103/ul Critically high 0.3-0.8 [facility] Comment on above: Performed By: #### C BC #### [facility] [address] [place] [address] Dr. Debra Blake Monocytes/100 WBC (Bld) 13.3 % Critically high 1.7-12. 0 [facility] Comment on above: Performed By: #### C BC #### [facility] [address] [place] [address] Dr. Debra Blake NEUT # 5.6 103/ul Normal 1.4-6.5 [facility] Comment on above: Performed By: #### C BC #### [facility] [address] [place] [address] Dr. Debra Blake Neutrophils/100 WBC (Bld) 68.9 % Normal 43.0-75.0 [facility] Comment on above: Performed By: #### C BC #### [facility] [address] [place] [address] Dr. Debra Blake Platelet mean volume (Bld) [Entitic vol] 9.2 fL Critically low 9.5-13.5 [facility] Comment on above: Performed By: #### C BC #### [facility] [address] [place] [address] Dr. Debra Blake PLT 179 103/ul Normal 150-450 [facility] Comment on above: Performed By: #### C BC #### [facility] [address] [place] [address] Dr. Debra Blake RBC 2.69 106/ul Critically low 4.20-5.40 [facility] Comment on above: Performed By: #### C BC #### [facility] [address] [address] [address] Debra Blake WBC 8.1 103/ul Normal 4.0-11.0 [facility] Comment on above: Performed By: #### C BC #### [facility] [address] [address] [address] Debra Blake Creatine kinase [Enzymatic a ctivity/volume] in Serum or PlasmaOrdered By: Hong Jewell on 12-04-2021 CK [Catalytic activity/Vol] 140 U/L 22-269 [facility] Direct bilirubin measurement Ordered By: Hong Jewell on 12-04-2021 Bilirubin.direct [Mass/Vol] 0.2 mg/dL 0.0-0.4 [facility] Folate [Mass/volume] in Seru m or PlasmaOrdered By: Hong Jewell on 12-04-2021 Folate [Mass/Vol] 5.1 ng/mL >5.9 [facility] Comment on above: Folate reference ran ge: >5.9 ng/ml The WHO technical consultation on folate and vitamin b12 deficiencies has determined that folate concentrations less than 4 ng/ml are considered deficient. Globulin Calc (S) [Mass/Vol] Ordered By: Hong Jewell on 12-04-2021 Globulin (S) [Mass/Vol] 3.2 g/dL [facility] Glucose mean value [Mass/vol ume] in Blood Estimated from glycated hemoglobinOrdered By: Hong Jewell on 12-04-2021 Average glucose Estimated from glycated hemoglobin (Bld) [Mass/Vol] 97 mg/dL [facility] Hemoglobin A1c percentageOrd ered By: Hong Jewell on 12-04-2021 HbA1c (Bld) [Mass fraction] 5.0 % 4.3-5.6 [facility] Comment on above: Increased risk for d iabetes: 5.7 - 6.4 diabetes: >6.4 glycemic control for adults with diabetes: <7.0 Laboratory - Chemistry and C hemistry - challengeOrdered By: Hong Jewell on 12-04-2021 Cobalamin (Vitamin B12) [Mass/Vol] 520 pg/mL 180-914 [facility] Laboratory - CoagulationOrde red By: Hong Myrnaairam on 12-04-2021 PT Coag (PPP) [Time] 12.2 s 9.0-12.9 [facility] MAGNESIUMon 12-04-2021 Magnesium [Mass/Vol] 1.1 mg/dL Critically low 1.8-2.4 [facility] Comment on above: Performed By: #### H STROPN #### [facility] [address] [place] [address] Dr. Debra Blake Magnesium [Mass/Vol] 0.6 mg/dL Critically low 1.8-2.4 [facility] Comment on above: Performed By: #### H STROPN, CMP #### [facility] [address] [place] [address] Dr. Debra Blake PROF 14(COMP METB)on 022 Albumin [Mass/Vol] 2.7 g/dL Critically low 3.4-5.0 [facility] Comment on above: Performed By: #### H STROPN #### [facility] [address] [place] [address] Dr. Debra Blake Albumin/Globulin [Mass ratio] 0.8 {ratio} Normal [facility] Comment on above: Performed By: #### H STROPN #### [facility] [address] [place] [address] Dr. Debra Blake ALP [Catalytic activity/Vol] 57 U/L Normal 46-116 [facility] Comment on above: Performed By: #### H STROPN #### [facility] [address] [place] [address] Dr. Debra Blake ALT [Catalytic activity/Vol] 7 U/L Critically low 14-59 [facility] Comment on above: Performed By: #### H STROPN #### [facility] [address] [place] [address] Dr. Debra Blake Anion gap [Moles/Vol] 17.3 mmol/L Normal [facility] Comment on above: Performed By: #### H STROPN #### [facility] [address] [address] [address] Debra Blake AST [Catalytic activity/Vol] 14 U/L Critically low 15-37 [facility] Comment on above: Performed By: #### H STROPN #### [facility] [address] [address] [address] Debra Blake Bilirubin [Mass/Vol] 0.6 mg/dL Normal 0.2-1.0 [facility] Comment on above: Performed By: #### H STROPN #### [facility] [address] [place] [address] Dr. Debra Blake Calcium [Mass/Vol] 5.8 mg/dL Critically low 8.5-10.[address] [facility] Comment on above: Result Comment: Test Repeated. Critical Value Verified Performed By: #### H STROPN #### [facility] [address] [place] [address] Dr. Debra Blake Chloride [Moles/Vol] 94 mmol/L Critically low 98-107 [facility] Comment on above: Performed By: #### H STROPN #### [facility] [address] [place] [address] Dr. Debra Blake CO2 [Moles/Vol] 17.7 mmol/L Critically low 21.0-32.0 [facility] Comment on above: Performed By: #### H STROPN #### [facility] [address] [place] [address] Dr. Debra Blake Creatinine [Mass/Vol] 2.48 mg/dL Critically high 0.55-1.02 [facility] Comment on above: Performed By: #### H STROPN #### [facility] [address] [place] [address] Dr. Debra Blake EGFR-AF ARGENTINE 24 mL/min/1.73m2 Critically low >=60 [facility] Comment on above: Performed By: #### H STROPN #### [facility] [address] [place] [address] Dr. Debra Blake EGFR-NON AF ARGENTINE 20 mL/min/1.73m2 Critically low >=60 [facility] Comment on above: Performed By: #### H STROPN #### [facility] [address] [address] [address] Debra Blake Globulin (S) [Mass/Vol] 3.2 g/dL Normal [facility] Comment on above: Performed By: #### H STROPN #### [facility] [address] [address] [address] Debra Blake Glucose [Mass/Vol] 108 mg/dL Critically high 74-106 [facility] Comment on above: Performed By: #### H STROPN #### [facility] [address] [address] [address] Debra Blake Potassium [Moles/Vol] 3.0 mmol/L Critically low 3.5-5.1 [facility] Comment on above: Performed By: #### H STROPN #### [facility] [address] [place] [address] Dr. Debra Blake Protein [Mass/Vol] 5.9 g/dL Critically low 6.4-8.2 [facility] Comment on above: Performed By: #### H STROPN #### [facility] [address] [address] [address] Debra Blake Sodium [Moles/Vol] 126 mmol/L Critically low 136-145 [facility] Comment on above: Performed By: #### H STROPN #### [facility] [address] [place] [address] Dr. Debra Blake Urea nitrogen [Mass/Vol] 29.0 mg/dL Critically high 7.0-18 .0 [facility] Comment on above: Performed By: #### H STROPN #### [facility] [address] [address] [address] Debra Blake Urea nitrogen/Creatinine [Mass ratio] 11.7 mg/mg Normal [facility] Comment on above: Performed By: #### H STROPN #### [facility] [address] [address] [address] Debra Blake Albumin [Mass/Vol] 3.1 g/dL Critically low 3.4-5.0 [facility] Comment on above: Performed By: #### H STROPN, CMP #### [facility] [address] [address] [address] Debra Blake Albumin/Globulin [Mass ratio] 0.8 {ratio} Normal [facility] Comment on above: Performed By: #### H STROPN, CMP #### [facility] [address] [address] [address] Debra Blake ALP [Catalytic activity/Vol] 65 U/L Normal 46-116 [facility] Comment on above: Performed By: #### H STROPN, CMP #### [facility] [address] [address] [address] Debra Blake ALT [Catalytic activity/Vol] 9 U/L Critically low 14-59 [facility] Comment on above: Performed By: #### H STROPN, CMP #### [facility] [address] [address] [address] Debra Blake Anion gap [Moles/Vol] 17.3 mmol/L Normal [facility] Comment on above: Performed By: #### H STROPN, CMP #### [facility] [address] [address] [address] Debra Blake AST [Catalytic activity/Vol] 17 U/L Normal 15-37 [facility] Comment on above: Performed By: #### H STROPN, CMP #### [facility] [address] [address] [address] Debra Blake Bilirubin [Mass/Vol] 0.8 mg/dL Normal 0.2-1.0 [facility] Comment on above: Performed By: #### H STROPN, CMP #### [facility] [address] [address] [address] Debra Blake Calcium [Mass/Vol] 5.8 mg/dL Critically low 8.5-10.1 [facility] Comment on above: Result Comment: Test Repeated. Critical Value Verified Performed By: #### H STROPN, CMP #### [facility] [address] [address] [address] Debra Blake Chloride [Moles/Vol] 91 mmol/L Critically low 98-107 [facility] Comment on above: Performed By: #### H STROPN, CMP #### [facility] [address] [address] [address] Debra Blake CO2 [Moles/Vol] 19.6 mmol/L Critically low 21.0-32.0 [facility] Comment on above: Performed By: #### H STROPN, CMP #### [facility] [address] [place] [address] Dr. Debra Blake Creatinine [Mass/Vol] 2.66 mg/dL Critically high 0.55-1.02 [facility] Comment on above: Performed By: #### H KINGSTONPN, CMP #### [facility] [address] [place] [address] Dr. Debra Blake EGFR-AF ARGENTINE 22 mL/min/1.73m2 Critically low >=60 [facility] Comment on above: Performed By: #### H GARY, CMP #### [facility] [address] [place] [address] Dr. Debra Blake EGFR-NON AF ARGENTINE 18 mL/min/1.73m2 Critically low >=60 [facility] Comment on above: Performed By: #### H GARY, CMP #### [facility] [address] [place] [address] Dr. Debra Blake Globulin (S) [Mass/Vol] 3.7 g/dL Normal T [facility] Comment on above: Performed By: #### H KINGSTONPN, CMP #### [facility] [address] [place] [address] Dr. Debra Blake Glucose [Mass/Vol] 106 mg/dL Normal 74-106 [facility] Comment on above: Performed By: #### H STROPN, CMP #### [facility] [address] [place] [address] Dr. Debra Blake Potassium [Moles/Vol] 2.8 mmol/L Critically low 3.5-5.1 [facility] Comment on above: Result Comment: Test Repeated. Critical Value Verified Performed By: #### H KINGSTONPN, CMP #### [facility] [address] [address] [address] Debra Blake Protein [Mass/Vol] 6.8 g/dL Normal 6.4-8.2 [facility] Comment on above: Performed By: #### H GARY, CMP #### [facility] [address] [address] [address] Debra Blake Sodium [Moles/Vol] 123 mmol/L Critically low 136-[address] [facility] Comment on above: Result Comment: Test Repeated. Critical Value Verified Performed By: #### H GARY, CMP #### [facility] [address] [address] [address] Debra Blake Urea nitrogen [Mass/Vol] 29.0 mg/dL Critically high 7.0-18 .0 [facility] Comment on above: Performed By: #### H GARY, CMP #### [facility] [address] [place] [address] Dr. Debra Blake Urea nitrogen/Creatinine [Mass ratio] 10.9 mg/mg Normal [facility] Comment on above: Performed By: #### H GARY, CMP #### [facility] [address] [address] [address] Debra Blake Phosphate [Mass/volume] in S lydia or PlasmaOrdered By: Hong Jewell on 12-04-2021 Phosphate [Mass/Vol] 3.6 mg/dL 2.5-4.6 [facility] Platelet poor plasma interna tional normalized ratio (INR) by coagulation assay (relatOrdered By: Hong Jewell on 12-04-2021 INR Coag (PPP) [Relative time] 1.1 {INR} [facility] Comment on above: INR Therapeutic Rang [...] in Ser um or PlasmaOrdered By: Hong Jewell on 12-04-2021 Protein [Mass/Vol] 6.2 g/dL 6.1-7.9 [facility] Serum ionized calcium measur ement using ion specific electrode (mass/volume)Ordered By: Hong Jewell on 12-04-2021 Calcium.ionized ISE [Mass/Vol] 3.5 mg/dL 4.5-5.6 [facility] Comment on above: Performed at: [address] [id number] [employer] Developer: Sanford Mehta PhD, Phone: [phone] Serum or plasma alanine orellana otransferase measurement without P-5'-P (enzymatic activiOrdered By: Hong Jewell on 12-04-2021 ALT No additional P-5'-P [Catalytic activity/Vol] 8 U/L 10-60 [facility] Serum or plasma albumin/glob ulin mass ratioOrdered By: Hong Jewell on 12-04-2021 Albumin/Globulin [Mass ratio] 0.9 {ratio} [facility] Serum or plasma alkaline lauren sphatase measurement (enzymatic activity/volume)Ordered By: Hong Jewell on 12-04-2021 ALP [Catalytic activity/Vol] 51 U/L 32-92 [facility] Serum or plasma aspartate am inotransferase measurement (enzymatic activity/volume)Ordered By: Hong Jewell on 12-04-2021 AST [Catalytic activity/Vol] 15 U/L 10-42 [facility] Serum or plasma creatine kin ase MB (CKMB)/total creatine kinase (CK) ratio by calculaOrdered By: Hong Jewell on 12-04-2021 CK.MB Calc [Catalytic fraction] 1.4 % 0.00-2.50 [facility] Serum or plasma creatine kin ase MB measurement (mass/volume)Ordered By: Hong Jewell on 12-04-2021 CK.MB [Mass/Vol] 2.0 ng/mL 0.6-6.3 [facility] Serum or plasma non-glucuron idated bilirubin measurement (mass/volume)Ordered By: Hong Jewell on 12-04-2021 Bilirubin.indirect [Mass/Vol] 0.6 mg/dL [facility] Serum or plasma prealbumin m easurement (mass/volume)Ordered By: Hong Jewell on 12-04-2021 Prealbumin [Mass/Vol] 15.8 mg/dL 18.0-38.0 [facility] Serum or plasma total biliru bin measurement (mass/volume)Ordered By: Hong Jewell on 12-04-2021 Bilirubin [Mass/Vol] 0.8 mg/dL 0.3-1.2 [facility] TROPONIN, HIGH SENSITIVITYon 12-04-2021 HSTROP 91.0 pg/mL Critically high 4.0-51.3 [facility] Comment on above: Result Comment: CUT- OFF POINTS HAVE BEEN ESTABLISHED BASED ON THE FOURTH UNIVERSAL DEFINITIONS OF MYOCARDIAL INFARCTION. THE UPPER REFERENCE LIMIT (URL) OF TROPONIN, DEFINED THE 99TH PERCENTILE OF cTnI DISTRIBUTION IN A REFERENCE POPULATION, HAS BEEN CONFIRMED THE DECISION THRESHOLD FOR MA DIAGNOSIS. Performed By: #### H GARY, CMP #### [facility] [address] [address] [address] Debra Blake HSTROP 107.8 pg/mL Critically high 4.0-51.3 [facility] Comment on above: Result Comment: CUT- OFF POINTS HAVE BEEN ESTABLISHED BASED ON THE FOURTH UNIVERSAL DEFINITIONS OF MYOCARDIAL INFARCTION. THE UPPER REFERENCE LIMIT (URL) OF TROPONIN, DEFINED THE 99TH PERCENTILE OF cTnI DISTRIBUTION IN A REFERENCE POPULATION, HAS BEEN CONFIRMED THE DECISION THRESHOLD FOR [place] DIAGNOSIS. Performed By: #### H KINGSTONPN #### [facility] [address] [address] [address] Debra Blake TSHon 12-04-2021 TSH 0.321 uIU/mL Critically low 0.358-3.74 0 [facility] Comment on above: Performed By: #### H KINGSTONPN, CMP #### [facility] [address] [address] [address] Debra Blake TSH DL <= 0.005 mIU/L QnOrde red By: Hong Jewell on 12-04-2021 TSH Qn 0.39 m[IU]/L 0.45-5.33 [facility] Urine lactic acid measuremen tOrdered By: Hong Jewell on 12-04-2021 Lactate (U) [Moles/Vol] 1.3 mmol/L 0.5-2.2 [facility] CBC AUTO DIFFon 12-03-2021 BASO # 0.1 103/ul Normal 0.0-0.1 [facility] Comment on above: Performed By: #### H STROPN #### [facility] [address] [address] [address] Debra Blake Basophils/100 WBC (Bld) 0.6 % Normal 0.2-2.0 [facility] Comment on above: Performed By: #### H STROPN #### [facility] [address] [address] [address] Debra Blake EO # 0.1 103/ul Normal 0.0-0.7 [facility] Comment on above: Performed By: #### H STROPN #### [facility] [address] [address] [address] Debra Blake Eosinophils/100 WBC (Bld) 1.5 % Normal 0.9-7.0 [facility] Comment on above: Performed By: #### H STROPN #### [facility] [address] [address] [address] Debra Blake Erythrocyte distribution width (RBC) [Ratio] 14.6 % Normal 11.0-15.0 [facility] Comment on above: Performed By: #### H STROPN #### [facility] [address] [address] [address] Debra Blake Hematocrit (Bld) [Volume fraction] 27.4 % Critically low 36.0-48.0 [facility] Comment on above: Performed By: #### H STROPN #### [facility] [address] [address] [address] Debra Blake Hemoglobin (Bld) [Mass/Vol] 9.7 g/dL Critically low 12.0-16.0 [facility] Comment on above: Performed By: #### H STROPN #### [facility] [address] [address] [address] Debar Blake IG # 0.08 10e3/ul Critically high 0.00-0.03 [facility] Comment on above: Performed By: #### H STROPN #### [facility] [address] [address] [address] Debra Blake IG % 0.9 % Critically high 0.0-0.5 [facility] Comment on above: Performed By: #### H STROPN #### [facility] [address] [address] [address] Debra Blake LYMPH # 1.9 103/ul Normal 1.2-3.8 [facility] Comment on above: Performed By: #### H STROPN #### [facility] [address] [place] [address] Dr. Debra Blake Lymphocytes/100 WBC (Bld) 20.9 % Normal 20.5-60.0 [facility] Comment on above: Performed By: #### H STROPN #### [facility] [address] [address] [address] Debra Blake MANUAL DIFF REQ NO Normal [facility] Comment on above: Performed By: #### H STROPN #### [facility] [address] [place] [address] Dr. Debra Blake MCH (RBC) [Entitic mass] 34.5 pg Critically high 26.7-3 4.0 [facility] Comment on above: Performed By: #### H STROPN #### [facility] [address] [address] [address] Debra Blake MCHC (RBC) [Mass/Vol] 35.4 g/dL Critically high 29.9-35.2 [facility] Comment on above: Performed By: #### H STROPN #### [facility] [address] [address] [address] Debra Blake MCV (RBC) [Entitic vol] 97.5 fL Normal 81.0-99.0 [facility] Comment on above: Performed By: #### H STROPN #### [facility] [address] [address] [address] Debra Blake MONO # 1.3 103/ul Critically high 0.3-0.8 [facility] Comment on above: Performed By: #### H STROPN #### [facility] [address] [address] [address] Debra Blake Monocytes/100 WBC (Bld) 14.3 % Critically high 1.7-12. 0 [facility] Comment on above: Performed By: #### H STROPN #### [facility] [address] [address] [address] Debra Blake NEUT # 5.5 103/ul Normal 1.4-6.5 [facility] Comment on above: Performed By: #### H STROPN #### [facility] [address] [place] [address] Dr. Debra Blake Neutrophils/100 WBC (Bld) 61.8 % Normal 43.0-75.0 [facility] Comment on above: Performed By: #### H STROPN #### [facility] [address] [address] [address] Debra Blake Platelet mean volume (Bld) [Entitic vol] 9.2 fL Critically low 9.5-13.5 [facility] Comment on above: Performed By: #### H STROPN #### [facility] [address] [address] [address] Debra Blake PLT 187 103/ul Normal 150-450 [facility] Comment on above: Performed By: #### H STROPN #### [facility] [address] [place] [address] Dr. Debra Blake RBC 2.81 106/ul Critically low 4.20-5.40 [facility] Comment on above: Performed By: #### H STROPN #### [facility] [address] [address] [address] Debra Blake WBC 8.9 103/ul Normal 4.0-11.0 [facility] Comment on above: Performed By: #### H STROPN #### [facility] [address] [place] [address] Dr. Debra Blake Covid-19 PCR (CVDTB)on 11-09 SARS-CoV-2 (COVID-19) RNA YVONNE+probe Ql (Unsp spec) Not detected Normal NOT DETECTED [facility] Comment on above: Result Comment: When diagnostic [...] for this test is supported by the [employer] of [employer] and Human Service's declaration that [...] used). Performed By: #### C VDTBH #### [facility] [address] [place] [address] Dr. Debra Blake ER URINE PROFILEon Bilirubin Ql (U) Negative Normal NEGATIVE [facility] Comment on above: Performed By: #### U MICRO, ERUR #### [facility] [address] [place] [address] Dr. Debra Blake Clarity (U) CLEAR Normal CLEAR [facility] Comment on above: Performed By: #### U MICRO, ERUR #### [facility] [address] [place] [address] Dr. Debra Blake Color (U) LT. YELLOW Normal YELLOW [facility] Comment on above: Performed By: #### U MICRO, ERUR #### [facility] [address] [place] [address] Dr. Debra Blake ERUAHD A micrscopic examina tion will be performed if indicated. Normal [facility] Comment on above: Performed By: #### U MICRO, ERUR #### [facility] [address] [address] [address] Debra Blake Glucose Ql (U) Negative Normal NEGATIVE [facility] Comment on above: Performed By: #### U MICRO, ERUR #### [facility] [address] [place] [address] Dr. Debra Blake Hemoglobin Ql (U) TRACE-LYSED Abnormal NEGATIVE [facility] Comment on above: Performed By: #### U MICRO, ERUR #### [facility] [address] [place] [address] Dr. Debra Blake Ketones Ql (U) Negative Normal NEGATIVE [facility] Comment on above: Performed By: #### U MICRO, ERUR #### [facility] [address] [place] [address] Dr. Debra Blake LEUKOCYTES MODERATE Abnormal NEGATIVE [facility] Comment on above: Performed By: #### U MICRO, ERUR #### [facility] [address] [place] [address] Dr. Debra Blake Nitrite Ql (U) Negative Normal NEGATIVE [facility] Comment on above: Performed By: #### U MICRO, ERUR #### [facility] [address] [place] [address] Dr. Debra Blake pH (U) 6.0 [pH] Normal 5-9 [facility] Comment on above: Performed By: #### U MICRO, ERUR #### [facility] [address] [place] [address] Dr. Debra Blake SPEC GRAVITY 1.010 Normal 1.005-<=1. 025 [facility] Comment on above: Performed By: #### U MICRO, ERUR #### [facility] [address] [place] [address] Dr. Debra Blake UA PROTEIN TRACE Normal NEGATIVE/ TRACE [facility] Comment on above: Performed By: #### U MICRO, ERUR #### [facility] [address] [place] [address] Dr. Debra Blake UR MICRO IND INDICATED Normal [facility] Comment on above: Performed By: #### U MICRO, ERUR #### [facility] [address] [place] [address] Dr. Debra Blake Urobilinogen Qn (U) 0.2 {Pascale'U}/dL Normal 0.2 - 1. 0 [facility] Comment on above: Performed By: #### U MICRO, ERUR #### [facility] [address] [place] [address] Dr. Debra Blake MAGNESIUMon 12-03-2021 Magnesium [Mass/Vol] 0.4 mg/dL Critically low 1.8-2.4 [facility] Comment on above: Performed By: #### M G #### [facility] [address] [place] [address] Dr. Debra Blake PROF 14(COMP METB)on 022 Albumin [Mass/Vol] 3.2 g/dL Critically low 3.4-5.0 [facility] Comment on above: Performed By: #### H STROPN, CMP #### [facility] [address] [place] [address] Dr. Debra Blake Albumin/Globulin [Mass ratio] 0.8 {ratio} Normal [facility] Comment on above: Performed By: #### H KINGSTONPN, CMP #### [facility] [address] [place] [address] Dr. Debra Blake ALP [Catalytic activity/Vol] 64 U/L Normal 46-116 [facility] Comment on above: Performed By: #### H KINGSTONPN, CMP #### [facility] [address] [place] [address] Dr. Debra Blake ALT [Catalytic activity/Vol] 11 U/L Critically low 14-59 [facility] Comment on above: Performed By: #### H KINGSTONPN, CMP #### [facility] [address] [place] [address] Dr. Debra Blake Anion gap [Moles/Vol] 19.5 mmol/L Normal [facility] Comment on above: Performed By: #### H KINGSTONPN, CMP #### [facility] [address] [address] [address] Debra Blake AST [Catalytic activity/Vol] 19 U/L Normal 15-37 [facility] Comment on above: Performed By: #### H STROPN, CMP #### [facility] [address] [address] [address] Debra Blake Bilirubin [Mass/Vol] 0.5 mg/dL Normal 0.2-1.0 [facility] Comment on above: Performed By: #### H STROPN, CMP #### [facility] [address] [place] [address] Dr. Debra Blake Calcium [Mass/Vol] 5.8 mg/dL Critically low 8.5-10.[address] [facility] Comment on above: Performed By: #### H STROPN, CMP #### [facility] [address] [place] [address] Dr. Debra Blake Chloride [Moles/Vol] 88 mmol/L Critically low 98-107 [facility] Comment on above: Performed By: #### H STROPN, CMP #### [facility] [address] [place] [address] Dr. Debra Blake CO2 [Moles/Vol] 19.7 mmol/L Critically low 21.0-32.0 [facility] Comment on above: Performed By: #### H STROPN, CMP #### [facility] [address] [place] [address] Dr. Debra Blake Creatinine [Mass/Vol] 2.77 mg/dL Critically high 0.55-1.02 [facility] Comment on above: Performed By: #### H STROPN, CMP #### [facility] [address] [place] [address] Dr. Debra Blake EGFR-AF ARGENTINE 21 mL/min/1.73m2 Critically low >=60 [facility] Comment on above: Performed By: #### H STROPN, CMP #### [facility] [address] [place] [address] Dr. Debra Blake EGFR-NON AF ARGENTINE 18 mL/min/1.73m2 Critically low >=60 [facility] Comment on above: Performed By: #### H STROPN, CMP #### [facility] [address] [address] [address] Debra Blake Globulin (S) [Mass/Vol] 3.9 g/dL Normal T [facility] Comment on above: Performed By: #### H STROPN, CMP #### [facility] [address] [address] [address] Debra Blake Glucose [Mass/Vol] 99 mg/dL Normal 74-106 [facility] Comment on above: Performed By: #### H STROPN, CMP #### [facility] [address] [address] [address] Debra Blake Potassium [Moles/Vol] 3.2 mmol/L Critically low 3.5-5.1 [facility] Comment on above: Performed By: #### H STROPN, CMP #### [facility] [address] [place] [address] Dr. Debra Blake Protein [Mass/Vol] 7.1 g/dL Normal 6.4-8.2 [facility] Comment on above: Performed By: #### H STROPN, CMP #### [facility] [address] [place] [address] Dr. Debra Blake Sodium [Moles/Vol] 124 mmol/L Critically low 136-[address] [facility] Comment on above: Performed By: #### H STROPN, CMP #### [facility] [address] [address] [address] Debra Blake Urea nitrogen [Mass/Vol] 28.0 mg/dL Critically high 7.0-18 .0 [facility] Comment on above: Performed By: #### H STROPN, CMP #### [facility] [address] [address] [address] Debra Blake Urea nitrogen/Creatinine [Mass ratio] 10.1 mg/mg Normal [facility] Comment on above: Performed By: #### H STROPN, CMP #### [facility] [address] [place] [address] Dr. Debra Blake TROPONIN, HIGH SENSITIVITYon 12-03-2021 HSTROP 96.9 pg/mL Critically high 4.0-51.3 [facility] Comment on above: Result Comment: CUT- OFF POINTS HAVE BEEN ESTABLISHED BASED ON THE FOURTH UNIVERSAL DEFINITIONS OF MYOCARDIAL INFARCTION. THE UPPER REFERENCE LIMIT (URL) OF TROPONIN, DEFINED THE 99TH PERCENTILE OF cTnI DISTRIBUTION IN A REFERENCE POPULATION, HAS BEEN CONFIRMED THE DECISION THRESHOLD FOR MA DIAGNOSIS. Performed By: #### H STROPN, CMP #### [facility] [address] [place] [address] Dr. Debra Blake HSTROP 102.0 pg/mL Critically high 4.0-51.3 [facility] Comment on above: Result Comment: CUT- OFF POINTS HAVE BEEN ESTABLISHED BASED ON THE FOURTH UNIVERSAL DEFINITIONS OF MYOCARDIAL INFARCTION. THE UPPER REFERENCE LIMIT (URL) OF TROPONIN, DEFINED THE 99TH PERCENTILE OF cTnI DISTRIBUTION IN A REFERENCE POPULATION, HAS BEEN CONFIRMED THE DECISION THRESHOLD FOR MA DIAGNOSIS. Performed By: #### H STROPN, CMP #### [facility] [address] [place] [address] Dr. Debra Blake URINE MICROSCOPIC ONLYon BACTERIA SMALL Abnormal NONE SEEN [facility] Comment on above: Performed By: #### U MICRO, ERUR #### [facility] [address] [place] [address] Dr. Debra Blake Bacteria identified Cx Nom (U) INDICATED Normal [facility] Comment on above: Performed By: #### U MICRO, ERUR #### [facility] [address] [place] [address] Dr. Debra Blake CAST NONE SEEN Normal NONE SEEN [facility] Comment on above: Performed By: #### U MICRO, ERUR #### [facility] [address] [place] [address] Dr. Debra Blake Crystals LM Nom (Urine sed) NONE SEEN Normal NONE SEEN [facility] Comment on above: Performed By: #### U MICRO, ERUR #### [facility] [address] [place] [address] Dr. Debra Blake Epithelial cells LM Ql (Urine sed) FEW Abnormal NONE SEEN /RARE [facility] Comment on above: Performed By: #### U MICRO, ERUR #### [facility] [address] [address] [address] Debra Blake MUCOUS NONE SEEN Normal NONE SEEN [facility] Comment on above: Performed By: #### U MICRO, ERUR #### [facility] [address] [address] [address] Debra Blake RBC 2-5 Abnormal 0-2 [facility] Comment on above: Performed By: #### U MICRO, ERUR #### [facility] [address] [place] [address] Dr. Debra Blake WBC (U) [#/Vol] /uL Abnormal NONE SEEN [facility] Comment on above: Performed By: #### U MICRO, ERUR #### [facility] [address] [place] [address] Dr. Debra Blake XR CHEST 1 Von [...] by: CODY ALEXANDER Date: 2021-12-03 19:03 Normal [facility] Vital Signs Date Time Vital Sign Value Performing Clinician Facility 07-02-2024 16:32-0400 SaO2% (BldA) [Mass fraction] 91 % [facility] Comment on above: Performed By: #### ABG ####[facility] ([id number])[address]141 [place] [address] 06-29-2024 20:56-0400 SaO2% (BldA) [Mass fraction] 99 % [facility] Comment on above: Performed By: #### VBG ####[facility] ([id number])2141 [place] [address] 06-25-2024 04:20-0400 SaO2% (BldA) [Mass fraction] 100 % [facility] Comment on above: Performed By: #### ABG ####[facility] ([id number])[facility] [place] [address] 06-24-2024 14:41-0400 SaO2% (BldA) [Mass fraction] 100 % [facility] Comment on above: Performed By: #### ABG ####[facility] ([id number])[address] [place], [place] [address] [address] 06-24-2024 04:59-0400 SaO2% (BldA) [Mass fraction] 100 % [facility] Comment on above: Performed By: #### ABG ####[facility] ([id number])[address]141 [place] [address] 06-22-2024 05:02-0400 SaO2% (BldA) [Mass fraction] 97 % [facility] Comment on above: Performed By: #### ABG ####[facility] ([id number])[address] [facility] [address] 06-21-2024 05:57-0400 SaO2% (BldA) [Mass fraction] 97 % [facility] Comment on above: Performed By: #### ABG ####[facility] ([id number])[address] [place] [address] 06-20-2024 04:22-0400 SaO2% (BldA) [Mass fraction] 100 % [facility] Comment on above: Performed By: #### ABG ####[facility] ([id number])[address] [facility] [address] 06-16-2024 04:39-0400 SaO2% (BldA) [Mass fraction] 94 % [facility] Comment on above: Performed By: #### ABG ####[facility] ([id number])[address] [facility] [place] [id number] 06-15-2024 03:45-0500 SaO2% (BldA) [Mass fraction] 97 % [facility] Comment on above: Performed By: #### ABG ####[facility] ([id number])[address] [facility] [address] 06-14-2024 16:44-0500 SaO2% (BldA) [Mass fraction] 97 % [facility] Comment on above: Performed By: #### ABG ####[facility] ([id number])[address] [facility] [address] 06-14-2024 12:03-0500 SaO2% (BldA) [Mass fraction] 96 % [facility] Comment on above: Performed By: #### VBG ####[facility] ([id number])2 [facility] [place] [id number] 06-13-2024 20:05-0500 SaO2% (BldA) [Mass fraction] 88 % [facility] Comment on above: Performed By: #### VBG ####[facility] ([id number])[address] [place], [place] [id number] 12-27-2023 14:41-0400 Diastolic blood pressure 100 mm[Hg] [facility] 12-27-2023 14:41-0400 Heart rate 86 /min Katie Velasquez APRN Work Phone: [facility] 12-27-2023 14:41-0400 Systolic blood pressure 184 mm[Hg] [facility] 12-27-2023 14:35-0400 Body height 165.1 cm [facility] 12-27-2023 14:35-0400 Body mass index (BMI) [Ratio] 28.3 kg/m2 [facility] 12-27-2023 14:35-0400 Body temperature 98 [degF] [facility] 12-27-2023 14:35-0400 Body weight 77.16 kg [facility] 12-27-2023 14:35-0400 Heart rate 138 /min [facility] 12-27-2023 14:35-0400 Respiratory rate 20 /min [facility] 12-27-2023 14:35-0400 SaO2% (BldA) [Mass fraction] 99 % [facility] 09-28-2023 14:43-0400 Body height 165.1 cm [facility] 09-28-2023 14:43-0400 Body mass index (BMI) [Ratio] 25.6 kg/m2 [facility] 09-28-2023 14:43-0400 Body weight 69.85 kg [facility] 09-28-2023 14:43-0400 Diastolic blood pressure 76 mm[Hg] [facility] 09-28-2023 14:43-0400 Heart rate 77 /min [facility] 09-28-2023 14:43-0400 SaO2% (BldA) [Mass fraction] 98 % [facility] 09-28-2023 14:43-0400 Systolic blood pressure 118 mm[Hg] [facility] 03-15-2022 20:42-0500 Diastolic blood pressure 89 mm[Hg] DO Segundo House Work Phone: [facility] 03-15-2022 20:42-0500 Heart rate 98 /min DO Segundo House Work Phone: [facility] 03-15-2022 20:42-0500 Respiratory rate 18 /min DO Segundo House Work Phone: [facility] 03-15-2022 20:42-0500 SaO2% (BldA) [Mass fraction] 99 % DO [employer] Work Phone: [facility] 03-15-2022 20:42-0500 Systolic blood pressure 158 mm[Hg] DO Segundo House Work Phone: [facility] 03-15-2022 18:02-0500 Body temperature 98 [degF] DO Segundo House Work Phone: [facility] 03-15-2022 17:59-0500 Body height 162.56 cm DO Segundo House Work Phone: [facility] 03-15-2022 17:59-0500 Body weight 69.3 kg DO Segundo House Work Phone: [facility] 03-15-2022 17:40-0500 Body height 165.1 cm William Vaibhav Other [employer] Other 03-15-2022 17:40-0500 Body mass index (BMI) [Ratio] 25.39 kg/m2 William Vaibhav Other [employer] Other 03-15-2022 17:40-0500 Body temperature 96.6 [degF] William Vaibhav Other [employer] Other 03-15-2022 17:40-0500 Body weight 69.22 kg William Vaibhav Other [employer] Other 03-15-2022 17:40-0500 Diastolic blood pressure 137 mm[Hg] William Vaibhav Other [employer] Other 03-15-2022 17:40-0500 Respiratory rate 18 /min William Vaibhav Other [employer] Other 03-15-2022 17:40-0500 SaO2% (BldA) [Mass fraction] 98 % William Vaibhav Other [facility] [employer] Other 03-15-2022 17:40-0500 Systolic blood pressure 221 mm[Hg] William Esposito Other [facility] [employer] Other 12-10-2021 11:52-0400 Body temperature 98 [degF] DO [employer] Work Phone: [facility] 12-10-2021 11:52-0400 Diastolic blood pressure 82 mm[Hg] DO Segundo House Work Phone: [facility] 12-10-2021 11:52-0400 Heart rate 77 /min DO [employer] Work Phone: [facility] 12-10-2021 11:52-0400 Respiratory rate 16 /min DO [employer] Work Phone: [facility] 12-10-2021 11:52-0400 SaO2% (BldA) [Mass fraction] 99 % DO [employer] Work Phone: [facility] 12-10-2021 11:52-0400 Systolic blood pressure 132 mm[Hg] DO Segundo House Work Phone: [facility] 12-10-2021 06:00-0400 Body weight 88 kg DO [employer] Work Phone: [facility] 12-08-2021 14:53-0400 Body height 165.1 cm DO [employer] Work Phone: [facility] Encounters Encounter Date Encounter Type Care Provider Facility Start: 08-26-2024 End: 08-26-2024 Telephone encounter Jerardo Ruth MANAGER ETHICS Work Phone: [facility] Start: 08-16-2024 End: 08-16-2024 Telephone encounter Jerardo Ruth MANAGER ETHICS Work Phone: [facility] Start: 07-26-2024 End: 07-26-2024 Telephone encounter Jerardo Ruth MANAGER ETHICS Work Phone: [facility] Start: 07-09-2024 End: 07-09-2024 ambulatory Quintin Forman MD Work Phone: [facility] Sign In Start: 06-14-2024 ambulatory [facility] Start: 06-13-2024 End: 07-03-2024 Evaluation and management of inpatient LUCIANA BLISS [facility] Start: 06-13-2024 End: 06-13-2024 ambulatory UNKNOWN PROVIDER Facility:[facility] Start: 06-13-2024 Non-patient / Non-visit Katie Velasquez UNDERGROUND UTILITY LOCATOR Work Phone: [facility] Work Phone: Start: 06-12-2024 Non-patient / Non-visit Katie Velasquez UNDERGROUND UTILITY LOCATOR Work Phone: [facility] Work Phone: Start: 06-12-2024 End: 06-12-2024 ambulatory Sheryl Jersey Santamaria Facility:[facility] Start: 06-12-2024 End: 06-12-2024 Departed Referred Katie Velasquez UNDERGROUND UTILITY LOCATOR Work Phone: [facility] Start: 04-22-2024 End: 04-28-2024 Non-patient / Non-visit Katie Velasquez UNDERGROUND UTILITY LOCATOR Work Phone: [facility] Work Phone: Start: 02-19-2024 End: 02-19-2024 ambulatory Katie Velasquez UNDERGROUND UTILITY LOCATOR Work Phone: [facility] Work Phone: Start: 02-19-2024 End: 02-19-2024 Departed Referred Katie Velasquez UNDERGROUND UTILITY LOCATOR Work Phone: [facility] Start: 12-27-2023 End: 12-27-2023 ambulatory [facility] Work Phone: Start: 12-27-2023 End: 12-27-2023 Patient encounter procedure [facility] Work Phone: Start: 10-02-2023 End: 10-02-2023 Telephone encounter Abhijit Pink CMA [facility] Start: 09-28-2023 End: 09-28-2023 ambulatory [facility] Work Phone: Start: 09-28-2023 End: 09-28-2023 Patient encounter procedure [facility] Work Phone: Start: 03-15-2022 End: 03-15-2022 Emergency department patient visit DO Segundo House Work Phone: [facility] Start: 03-15-2022 End: 03-15-2022 ambulatory William Vaibhav Other [employer] Other Start: 03-15-2022 Office outpatient visit 25 minutes William Vaibhav [facility] Start: 12-19-2021 End: 12-19-2021 ambulatory JUNO HERNÁNDEZ Facility:[facility] Start: 12-15-2021 ambulatory MD Luis LEONARDO [facility] ity:[facility] Start: 12-08-2021 End: 12-09-2021 ambulatory MD Luis LEONARDO Facility:[id number] Start: 12-04-2021 End: 12-10-2021 Evaluation and management of inpatient DO Segundo Rawls Work Phone: [facility] Start: 12-03-2021 End: 12-04-[address] UNIQUE AUSTIN Facility:[facility] Start: 07-04-2017 End: 07-05-2017 Ambulatory DEFAULT PHYSICIAN Facility:[facility] Start: 05-02-2017 End: 05-03-2017 Ambulatory DEFAULT PHYSICIAN Facility:[facility] Procedures Date Procedure Procedure Detail Performing Clinician Start: 03-15-2022 Plain chest X-ray DO Hen[facility] Work Phone: Start: 12-08-2021 CT of abdomen and pe lvis without contrast DO Segundo Rawls Work Phone: Start: 12-07-2021 Ultrasonography of b ilateral kidneys DO Segundo Rawls Work Phone: Start: 12-06-2021 CT of chest without contrast DO Segundo Rawls Work Phone: Measurement of occul t blood in stool specimen using immunoassay DO Segundo Rawls Work Phone: Urine culture [facility] Work [facility]: Plan of Treatment Date Care Activity Detail Author Start: 07-03-2025 Adult BMI Screening Adult BMI Screening [facility] Start: 12-09-2024 Influenza vaccination Influenza Vaccine [facility] Start: 07-17-2024 End: 07-17-2024 Patient encounter procedure 07/17/2024 2:30 PM EDT Office Visit [facility] [address] [place] [address] [address] [place] [address] Rosalinda Nathan, [address], [address], [place] [address] [facility] Start: 06-12-2024 Urine culture [facility] Start: 06-12-2024 Bacteria identified in Urine by Culture Urine Culture [facility] Start: 12-27-[address] [facility] Work Phone: Start: 12-10-2023 Influenza vaccination Influenza Vaccine [facility] Start: 09-28-[address] [facility] Work Phone: Start: 12-10-2021 [facility] Work Phone: Start: 12-08-2021 Referral to urologist [facility] Work Phone: Start: 12-06-2021 Referral to automation operator [facility] Work Phone: Start: 12-05-2021 Referral to brick setter [facility] Work Phone: Start: 12-05-2021 Administration of prophylactic treatment [facility] Work Phone: Start: 12-05-2021 Ascorbic acid measurement [facility] onal [facility] Work Phone: Start: 12-04-2021 Referral to web content specialist [facility] Work Phone: Start: 12-04-2021 Referral to Bridge Operator Slip [facility] Work Phone: Start: 12-04-2021 Hospital admission [facility] Work Phone: Start: 2013 Administration of varicella zoster vaccine Zoster (Shingles) Vaccine (1 of 2) [facility] Start: 01-31-1984 Screening for malignant neoplasm of cervix Pap Smear [facility] Start: 1982 DTaP,Tdap and Td Vaccines (1 - Tdap) DTaP,Tdap and Td Vaccines (1 - Tdap) [facility] Start: 1981 Adult BMI Screening Adult BMI Screening [facility] Start: 1975 Depression Screening Depression Screening [facility] Start: 1975 Tobacco Screening Tobacco Screening [facility] Blood chemistry [facility] Work Phone: Comprehensive metabo lic 2000 panel - Serum or Plasma [facility] MG Breast - bilatera l Diagnostic [facility] Patient Education High Blood Pre ssure ED [facility] Work Phone: Patient referral [facility] Work Phone: Phosphatidylethanol [Mass/volume] in Blood [facility] Work Phone: Thiamine [Moles/volu me] in Blood [facility] Work Phone: US Breast - left limited [facility] Payers Date Payer Category Payer Self-pay 2023 Medicaid [facility] MEDICAID [id number] 2023 Medicaid [id number] 2023 Private Health Insurance [employer] [id number] 2022 Unknown [id number] 1965 Unknown [id number]. 593 1963 Unknown [id number]. 593 1963 Unknown [id number]. 727 1963 Unknown [id number]. 1286 1963 Unknown [id number]. 1286 1963 Unknown [id number]. 1286 1963 Unknown [id number]. 1286 1963 Unknown [id number]. 732 1963 Unknown [id number]. 1286 1959 Unknown [id number] Unknown Unknown [id number] 531 Unknown [id number] 531 Social History Date Type Detail Facility Start: 12-08-2021 End: 09-28-2023 Tobacco smoking status NHIS Smoker (finding) [facility] Start: 1965 Sex Assigned At Female F [facility] Start: 09-19-2018 Sex Assigned At N [facility] [employer] Other Start: 11-13-2014 End: 02-21-2024 Sex Female (finding) [facility] Tobacco smoking status [facility] Tobacco smoking consumption unknown [facility] Start: 09-19-2018 [facility] Start: 1965 [facility] assigned at [facility] Goals Date Patient Goal Desired Activity /State Personal health goal Comment on above: Formatting of this n ote might be different from the original. Evaluation of progress towards goal: Progress towards discharge Functional Status Date Assessment Result Facility 12-10-2021 Functional status Patient is Pro gressing Toward Baseline [facility] Work Phone: Mental Status Date Assessment Result Facility 12-10-2021 Cognitive function Cognitive Sta tus Patient at Baseline [facility] Work Phone: Clinical Notes 12-04-2021 to 08-26-2024 Telephone Encounter - Jerardo Ruth NP - 08/26/2024 4:52 PM EDTTelephone Encounter - Jerardo Ruth NP - 08/26/2024 4:52 PM EDTTelephone Encounter - Jerardo Ruth NP - 08/16/2024 1:59 PM EDT Note Date & Type Note Facility 08-26-2024 Telephone encount er Note Requested Prescriptions Signed Prescriptions Disp Refills LORazepam (Ativan) 0.5 MG tablet 42 tablet 0 Sig: Take 1 tablet (0.5 mg) by mouth every 8 (eight) hours if needed for anxiety for up to 14 days Authorizing Provider: JERARDO RUTH [facility] 08-26-2024 Miscellaneous Notes Formattin g of this note is different from the original. Requested Prescriptions Signed Prescriptions Disp Refills LORazepam (Ativan) 0.5 MG tablet 42 tablet 0 Sig: Take 1 tablet (0.5 mg) by mouth every 8 (eight) hours if needed for anxiety for up to 14 days Authorizing Provider: JERARDO RUTH documented in this encounter [facility] 08-16-2024 Telephone encount er Note Requested Prescriptions Signed Prescriptions Disp Refills LORazepam (Ativan) 1 MG tablet 30 tablet 0 Sig: Take 1 tablet (1 mg) by mouth Daily Give daily before HD on dialysis days Authorizing Provider: JERARDO RUTH [facility] 08-16-2024 Miscellaneous Notes Formattin g of this note is different from the original. Requested Prescriptions Signed Prescriptions Disp Refills LORazepam (Ativan) 1 MG tablet 30 tablet 0 Sig: Take 1 tablet (1 mg) by mouth Daily Give daily before HD on dialysis days Authorizing Provider: JERARDO RUTH documented in this encounter [facility] 07-26-2024 Telephone encount er Note Requested Prescriptions Signed Prescriptions Disp Refills LORazepam (Ativan) 0.5 MG tablet 28 tablet 0 Sig: Take 2 tablets (1 mg) by mouth Daily for 14 days Give daily before HD on Mon, , Mon, , Monday. Authorizing Provider: JERARDO RUTH [facility] 07-26-2024 Miscellaneous Notes Formattin g of this note is different from the original. Requested Prescriptions Signed Prescriptions Disp Refills LORazepam (Ativan) 0.5 MG tablet 28 tablet 0 Sig: Take 2 tablets (1 mg) by mouth Daily for 14 days Give daily before HD on Mon, , Mon, , Monday. Authorizing Provider: JERARDO RUTH documented in this encounter [facility] 07-09-2024 History of Presen t illness Narrative BAL cultures collected on 07/02 growing MRSA the results were finalized after patient's discharge. Currently patient is residing at [facility], which were contacted and patient caring staff was notified. documented in this encounter [facility] 12-27-2023 Evaluation note Diagnosis Onset Date Resolution [...] 27, 2023 2:30pm Weakness acute December 2:30pm [facility] Work Phone: [phone] 470-973406-24-2024 Miscellaneous Notes* Telephone Encounter - Abhijit Pink CMA - 10/02/2023 9:55 AM EDT Called patient in regards to referral and we were to far of a drive. Advised patient to call referring provider to look for someone closer. [facility] Telephone encounter Note* Telephone Encounter - Abhijit Pink CMA - 10/02/2023 9:55 AM EDT Called patient in regards to referral and we were to far of a drive. Advised patient to call referring provider to look for someone closer. [facility]* Encounter Date Diagnosis Assessment Notes [...] Calcium are within normal limit. Mar, Oswald nova kid w cr kid I-IV (ICD-10 - I12.9) Her blood pressure is high due to medication noncompliance. Advised to go to the emergency room. [employer] Other 09-07-2022 Note [id number]:127[facility] 12-10-2021 Discharge summary Author Hong Jewell [facility] December 10, 2021 7:47pm Note Date/Time December 10, 2021 1:26pm [facility] [address] [place] [address] Discharge Summary Signed Patient: Orestes Alvares MR#: [id number] : 1965 Acct:[id number] Age/Sex: 56 / F Adm Date: 2 Loc: Room: [address] [place] [address]: Hong Jewell DO Copies to: MD Segundo Tijerina, DO Luis Hernandez MD~ Providers Date of Discharge: 12/10/21 Discharging Provider: Hong Jewell Primary Care Provider: Segundo Rawls Consults: 12/04/21 [...] hours before bed opened up. [facility]. Here in the hospital she did [...] % (Auto) 62.7, Lymph % (Auto) 21.7, [place] % (Auto) 11.2, Eos % (Auto) 3.5, Baso % (Auto) 0.9, Neut # (Auto) 3.9, Lymph # (Auto) 1.4, [place] # (Auto) 0.7, Eos # (Auto) 0.2, Baso # (Auto) 0.1, Nucleated RBC % (auto) 0.0 12/09/21 18:15: Hgb 8.0 L, Hct 24.2 L 12/09/21 14:48: Double Strand DNA Ab <1 12/07/21 12:45: Ur Random Albumin 69.2, U Random Total Protein 51.3, U Aesli-3-Bnqstyel (%) 3.1, U Random m-8-Mepmapqg % 6.0, U Random b-Globulin % 13.5, U Random Gamma Glob % 8.2, U Random M-lAexei (%) Not observed, Urine Random PEP Note [...] them by the next business day.) Luis Leonardo MD [Active Staff] - (The Urology office [...] a follow up appointment.) Documented By: Hong Jewell DO 1325 Signed By: <Electronically signed by Hong Jewell DO> 12/10/211946 [facility] Work Phone: 1(154) 986-990409-02-2022 Progress note Author William Esposito [facility] December 10, 2021 11:31am Note Date/Time December 10, 2021 11:24am [facility] [address] [place] [address] Nephrology Progress Note Signed Patient: Orestes Alvares MR#: [id number] : 1965 Acct:[id number] Age/Sex: 56 / F Adm Date: 2 Loc: Room: [address] [place] [address] Type: ADM IN Attending Dr: Hong Jewell DO Copies to: ~ Date of Service: 12/10/2021 Subjective Subjective Narrative: Mrs. Alvares is a 56-year-old white female with history of COPD, smoker, alcohol abuse and hypothyroidism on levothyroxine who was [facility] for abnormal blood work [...] 1 g of calcium before transfer to [facility]. Today's creatinine is slightly better 1.87 mg/dL [...] visible mass Skin: No rashes or bruises DIAGNOSTIC ASSISTANT: Awake,Alert, following simple command Musculoskeletal: No joint [...] 500 Mg Tablet) 500 mg PO BID[facility] Stop: 12/05/22 07:59 Last Admin: 12/10/21 08:31 [...] 50 Mcg Tablet) 50 mcg PO DAILY.0630 [facility] Stop: 12/05/22 06:29 Last Admin: 12/10/21 07:31 [...] DAILY [facility] Stop: 12/06/22 08:59 Last Admin: 09/02/22 08:31 Dose: Not Given Omeprazole (Omeprazole 20 [...] reading physician into a diagnostic report(s) for Orestes Alvares. I have reviewed the report(s) and am [...] signed by William Esposito MD> 12/10/21 1131 [facility] Work Phone: [phone] 383-734409-01-2022 Progress note Author Hong Jewell [facility] December 09, 2021 4:10pm Note Date/Time December 09, 2021 4:10pm [facility] [address] [place] [address] Hospitalist Progress Note Signed Patient: Orestes Alvares MR#: [id number] : 1965 Acct:[id number] Age/Sex: 56 / F Adm Date: 2 Loc: Room: [address] [place] [address] Type: ADM IN Attending Dr: Hong Jewell DO Copies to: ~ Date of Service: [...] PRN tachycardia Nicotine 1 each 12/06/21 09:00 09/01/22 08:15 Nicotine Patch 21 Mg/24hr 1 Each [...] benefit at this time. Documented By: Hong Jewell DO 1607 Signed By: <Electronically signed by Hong Jewell DO> 12/09/21 1610 [facility] Work Phone: [phone] 430-108009-01-2022 Progress note Author William Esposito [facility] December 09, 2021 10:58am Note Date/Time December 09, 2021 10:58am [facility] [address] [place] [address] Nephrology Progress Note Signed Patient: Orestes Alvares MR#: [id number] : 1965 Acct:[id number] Age/Sex: 56 / F Adm Date: 2 Loc: 4 Room: 2U3655-6 Type: ADM IN Attending Dr: Hong Jewell DO Copies to: ~ Date of Service: 12/09/2021 Subjective Subjective Narrative: Mrs. Alvares is a 56-year-old white female with history of COPD, smoker, alcohol abuse and hypothyroidism on levothyroxine who was [facility] for abnormal blood work [...] 1 g of calcium before transfer to [facility]. Today's creatinine is slightly better 1.87 mg/dL [...] visible mass Skin: No rashes or bruises DIAGNOSTIC ASSISTANT: Awake,Alert, following simple command Musculoskeletal: No joint [...] 500 Mg Tablet) 500 mg PO BID[facility] Stop: 12/05/22 07:59 Last Admin: 12/09/21 08:25 Dose: 500 mg Calcium Carbonate (Calcium Carbonate 500 Mg Tablet) 1,000 mg PO BID [facility] Stop: 12/06/22 09:29 Last Admin: 12/09/21 08:13 [...] 40 Mg Tablet) 40 mg PO DAILY.8A [facility] Stop: 12/10/22 07:59 Magnesium Sulfate (Magnesium Sulf 2gm-*Swfi*) 2 gm in 50 mls @ 25 mls/hr IV DAILY PRN PRN Reason: Magnesium Level < 1.5 Stop: 12/04/22 10:15 Folic Acid 1 mg/ Dextrose 50.2 mls @ 100.4 mls/hr IV DAILY [facility] Stop: 12/04/22 13:59 Last Admin: 12/09/21 09:37 [...] 50 Mcg Tablet) 50 mcg PO DAILY.629 [facility] Stop: 12/05/22 06:29 Last Admin: 12/09/21 05:30 Dose: 50 mcg Metoprolol Succinate (Metoprolol Succinate 100 Mg Tab.Er.24h) 100 mg PO DAILY [facility] Stop: 12/04/22 17:43 Last Admin: 12/09/21 08:14 Dose: 100 mg Metoprolol Tartrate (Metoprolol Tartrate 5 Mg/5 Ml Vial) 5 mg IV-PUSH Q4H PRN PRN Reason: tachycardia Stop: 12/06/22 19:17 Nicotine (Nicotine Patch 21 Mg/24hr 1 Each Patch.Td24) 1 each TRANSDERML DAILY [facility] Stop: 12/06/22 08:59 Last Admin: 12/09/21 08:15 Dose: Not Given Omeprazole (Omeprazole 20 Mg Capsule.Dr) 20 mg PO DAILY [facility] Stop: 12/05/22 08:59 Last Admin: 12/09/21 08:14 Dose: 20 mg Potassium Chloride (Potassium Chloride Er 20 Meq Tab.Er.Prt) 20 meq PO DAILY PRN PRN Reason: Hypokalemia Stop: 12/04/22 10:15 Potassium Chloride (Potassium Chloride Er 20 Meq Tab.Er.Prt) 40 meq PO DAILY PRN PRN Reason: Hypokalemia Stop: 12/04/22 10:15 Sodium Bicarbonate (Sodium Bicarbonate 650 Mg Tablet) 650 mg PO TID [facility] Stop: 12/07/22 13:59 Last Admin: 12/09/21 08:14 [...] Unique Enciso M.D.12/08/2021 5:49 PM Dictation Location: [place] [address] Any impression(s) listed above is documentation that was entered by the reading physician into a diagnostic report(s) for Orestes Suzanne Юлия. I have reviewed the report(s) and am [...] <Electronically signed by William Esposito MD> 12/09/21 6352 [facility] Work Phone: [phone] Progress note Author Claude Castellanos [facility] December 08, 2021 6:59pm Note Date/Time December 08, 2021 6: 59pm [facility] [address] [place] [address] Hospitalist Progress Note Signed Patient: Orestes Alvares MR#: [id number] : 1965 Acct:[id number] Age/Sex: 56 / F Adm Date: 2 Loc: Room: [address] [place] [address] Type: ADM IN Attending Dr: Claude Castellanos [...] <Electronically signed by Claude Castellanos MD> 12/08/211858 [facility] Work Phone: [phone] 561-650008-31-2022 Consult note Author Luis Leonardo [facility] December 08, 2021 3:55pm Note Date/Time December 08, 2021 3: 55pm [facility] [address] [place] [address] Urology Consult Note Signed Patient: Orestes Alvares MR#: [id number] : 1965 Acct:[id number] Age/Sex: 56 / F Adm Date: 2 Loc: Room: [address] [place] [address] Type: ADM IN Attending Dr: Claude Castellanos MD Copies to: DO Claude Rose MD Patrick R Waters, MD~ History of Present Illness Consult Details Consult Date: 12/08/2021 Requesting Provider: Claude Castellanos MD HPI: This lady was admitted to the hospital after transfer from [facility] dueto low sodium, calcium and magnesium and [...] % (Auto) 55.8, Lymph % (Auto) 27.7, [place] % (Auto) 13.1, Eos % (Auto) 2.7, Baso % (Auto) 0.7, Neut # (Auto) 3.1, Lymph # (Auto) 1.6, [place] # (Auto) 0.7, Eos # (Auto) 0.2, [...] % (Auto) 83.6, Lymph % (Auto) 7.8, [place] % (Auto) 8.3, Eos % (Auto) 0.1, Baso % (Auto) 0.2, Neut # (Auto) 6.2, Lymph # (Auto) 0.6 L, [place] # (Auto) 0.6, Eos # (Auto) 0.0, [...] part in her care. Documented By: Luis Leonardo MD 12/08/21 1546 Signed By: <Electronically signed by MD Luis Leonardo> 12/08/21 4892 [facility] Work Phone: [phone] Progress note Author William Esposito [facility] December 08, 2021 11:01am Note Date/Time December 08, 2021 10 :55am [facility] [address] [place] [address] Nephrology Progress Note Signed Patient: Orestes Alvares MR#: [id number] : 1965 Acct:[id number] Age/Sex: 56 / F Adm Date: 2 Loc: Room: [address] [place] [address] Type: ADM IN Attending Dr: Claude Castellanos MD Copies to: ~ Date of Service: 12/08/2021 Subjective Subjective Narrative: Mrs. Alvares is a 56-year-old white female with history of COPD, smoker, alcohol abuse and hypothyroidism on levothyroxine who was [facility] for abnormal blood work [...] 1 g of calcium before transfer to [facility]. Today's creatinine is slightly better 1.87 mg/dL [...] visible mass Skin: No rashes or bruises DIAGNOSTIC ASSISTANT: Awake,Alert, following simple command Musculoskeletal: No joint [...] 500 Mg Tablet) 500 mg PO BID[facility] Stop: 12/05/22 07:59 Last Admin: 12/08/21 08:29 Dose: 500 mg Calcium Carbonate (Calcium Carbonate 500 Mg Tablet) 1,000 mg PO BID [facility] Stop: 12/06/22 09:29 Last Admin: 12/08/21 08:29 [...] 50.2 mls @ 100.4 mls/hr IV DAILY [facility] Stop: 12/04/22 13:59 Last Admin: 12/08/21 09:44 Dose: 100 mls/hr Thiamine HCl 200 mg/ Sodium (Chloride) 102 mls @ 204 mls/hr IV TID [facility] Stop: 12/04/22 21:59 Last Infusion: 12/08/21 08:59 Dose: Infused Levofloxacin (Levofloxacin 750 Mg Tablet) 750 mg PO Q48H [facility] Levothyroxine Sodium (Levothyroxine 50 Mcg Tablet) 50 mcg PO DAILY.0630 [facility] Stop: 12/05/22 06:29 Last Admin: 12/08/21 05:51 Dose: 50 mcg Metoprolol Succinate (Metoprolol Succinate 100 Mg Tab.Er.24h) 100 mg PO DAILY [facility] Stop: 12/04/22 17:43 Last Admin: 12/08/21 08:29 Dose: 100 mg Metoprolol Tartrate (Metoprolol Tartrate 5 Mg/5 Ml Vial) 5 mg IV-PUSH Q4H PRN PRN Reason: tachycardia Stop: 12/06/22 19:17 Nicotine (Nicotine Patch 21 Mg/24hr 1 Each Patch.Td24) 1 each TRANSDERML DAILY [facility] Stop: 12/06/22 08:59 Last Admin: 12/08/21 08:29 Dose: Not Given Omeprazole (Omeprazole 20 Mg Capsule.Dr) 20 mg PO DAILY [facility] Stop: 12/05/22 08:59 Last Admin: 12/08/21 08:28 Dose: 20 mg Potassium Chloride (Potassium Chloride Er 20 Meq Tab.Er.Prt) 20 meq PO DAILY PRN PRN Reason: Hypokalemia Stop: 12/04/22 10:15 Potassium Chloride (Potassium Chloride Er 20 Meq Tab.Er.Prt) 40 meq PO DAILY PRN PRN Reason: Hypokalemia Stop: 12/04/22 10:15 Sodium Bicarbonate (Sodium Bicarbonate 650 Mg Tablet) 650 mg PO TID [facility] Stop: 12/07/22 13:59 Last Admin: 12/08/21 08:28 Dose: 650 mg Sodium Chloride (Sodium Chloride 0.9 % 10 Ml Syringe) 0 ml IV-PUSH PRN PRN PRN Reason: Flush Stop: 12/04/22 10:15 Last Admin: 12/05/21 22:07 Dose: 10 ml Vitamin D (Cholecalciferol 10 Mcg (400 Units) Tablet) 20 mcg PO BID.WITH.[facility]ALS [facility] Stop: 12/07/22 07:59 Last Admin: 12/08/21 08:28 [...] Unique Enciso M.D.12/07/2021 4:27 PM Dictation Location: [place] [address] Any impression(s) listed above is documentation that was entered by the reading physician into a diagnostic report(s) for Orestes Alvares. I have reviewed the report(s) and am [...] signed by William Esposito MD> 12/08/21 1101 [facility] Work Phone: [phone] 211-255508-30-2022 Progress note Author Claude Castellanos [facility] December 07, 2021 8:00pm Note Date/Time December 07, 2021 8: 00pm [facility] [address] [place] [address] Hospitalist Progress Note Signed Patient: Orestes Alvares MR#: [id number] : 1965 Acct:[id number] Age/Sex: 56 / F Adm Date: 2 Loc: Room: [address] [place] [address] Type: ADM IN Attending Dr: Claude Castellanos [...] <Electronically signed by Claude Castellanos MD> 12/07/211999 [facility] Work Phone: [phone] Consult note Author Kylah Kingsley [facility] December 07, 2021 4:57pm Note Date/Time December 07, 2021 4: 51pm [facility] [address] [place] [address] Cardiology Consult Note Signed Patient: Orestes Alvares MR#: [id number] : 1965 Acct:[id number] Age/Sex: 56 / F Adm Date: 2 Loc: Room: [address] [place] [address] Type: ADM IN Attending Dr: Claude Castellanos MD Copies to: DO Claude Rose MD Hassan M Ibrahim, MD, FACC~ Cardiology HPI History of Present Illness Consult Date: 12/07/21 Reason for Consult: Paroxysmal atrial fibrillation HPI: Ms. Alvares is a 56 year old female who is being seen at the request of the hospitalist because of paroxysmal atrial fibrillation. Patient presented to [facility] emergency department with syncopal event believed to [...] denies any complaints. While she was in [facility] emergency department her high-sensitivitytroponin was elevated at [...] Lymph # (Auto) 0.6 L (1.00-4.8) x10E3/uL [place] # (Auto) 0.6 (0.0-0.8) x10E3/uL Eos # [...] 50 ml @ 100.4 mls/hr IV DAILY [facility] Rx#:[id number] Thiamine 200 mg In Sodium 102 / 102 Chloride 0.9% 100 ml 100 ml @ 204 mls/hr IV TID [facility] Rx#: [id number] Oral 150 / 350 200 / 350 [...] failure, unspecified Documented By: Kylah Kingsley MD, [facility] 2 1649 Signed By: <Electronically signed by [facility] Kylah Kingsley> 12/07/217 [facility] Work Phone: [phone] Progress note Author William Esposito [facility] December 07, 2021 10:38am Note Date/Time December 07, 2021 10 :34am [facility] [address] [place] [address] Nephrology Progress Note Signed Patient: Orestes Alvares MR#: [id number] : 1965 Acct:[id number] Age/Sex: 56 / F Adm Date: 2 Loc: Room: [address] [place] [address] Type: ADM IN Attending Dr: Claude Castellanos MD Copies to: ~ Date of Service: 12/07/2021 Subjective Subjective Narrative: Mrs. Alvares is a 56-year-old white female with history of COPD, smoker, alcohol abuse and hypothyroidism on levothyroxine who was [facility] for abnormal blood work [...] 1 g of calcium before transfer to [facility]. Today's creatinine is slightly better 1.87 mg/dL [...] visible mass Skin: No rashes or bruises DIAGNOSTIC ASSISTANT: Awake,Alert, following simple command Musculoskeletal: No joint swelling or limitation of movement Psychiatric: Cooperative, normal mood and affect abdominal hysterectomy Objective Intake and Output I&O: Intake & Output 12/04/21 12/05/21 12/06/2130/22 23:59 23:59 23:59 23:59 Intake Total 1949.2 / 1949.2 3658.2 / 3658.2 1794.2 / 1794.2 302.2 / 302.2 Output Total / Balance 1949.2 / 1949.2 3658.2 / 3658.2 1792.2 / 1792.2 302.2 / 302.2 Weight 76.4 kg 75 kg 75.8 kg 84.9 kg Meds and Allergies Meds: Active Medications Acetaminophen (Acetaminophen 325 Mg Tablet) 650 mg PO Q6HR PRN PRN Reason: Pain Scale 1 - 3 or fever Stop: 12/04/22 10:15 Ascorbic Acid (Ascorbic Acid 500 Mg Tablet) 500 mg PO BID.[facility] Stop: 12/05/22 07:59 Last Admin: 12/07/21 08:12 Dose: 500 mg Calcium Carbonate (Calcium Carbonate 500 Mg Tablet) 1,000 mg PO BID [facility] Stop: 12/06/22 09:29 Last Admin: 12/07/21 08:11 [...] 50.2 mls @ 100.4 mls/hr IV DAILY [facility] Stop: 12/04/22 13:59 Last Infusion: 12/07/21 09:30 Dose: Infused Thiamine HCl 200 mg/ Sodium (Chloride) 102 mls @ 204 mls/hr IV TID [facility] Stop: 12/04/22 21:59 Last Infusion: 12/07/21 09:17 Dose: Infused Levofloxacin (Levaquin) 750 mg in 150 mls @ 100 mls/hr IV Q48H [facility] Last Admin: 12/07/21 09:31 Dose: 100 mls/hr Sodium Bicarbonate 150 meq/ (Dextrose) 1,150 mls @ 100 mls/hr IV .[id number] [facility] Stop: 12/06/22 19:29 Last Admin: 12/06/21 20:18 Dose: 100 mls/hr Levothyroxine Sodium (Levothyroxine 50 Mcg Tablet) 50 mcg PO DAILY.0630 [facility] Stop: 12/05/22 06:29 Last Admin: 12/07/21 05:42 [...] (400 Units) Tablet) 20 mcg PO BID.WITH.[facility]ALS [facility] Stop: 12/07/22 07:59 Last Admin: 12/07/21 08:11 [...] Rossi Salinas M.D.12/06/2021 6:01 PM Dictation Location: [place] [address] Any impression(s) listed above is documentation that was entered by the reading physician into a diagnostic report(s) for Orestes Alvares. I have reviewed the report(s) and am [...] signed by William Esposito MD> 12/07/21 1038 [facility] Work Phone: [phone] Progress note Author Hong Jewell [facility] December 06, 2021 7:32pm Note Date/Time December 06, 2021 7: 32pm [facility] [address] [place] [address] Hospitalist Progress Note Signed Patient: Orestes Alvares MR#: [id number] : 1965 Acct:[id number] Age/Sex: 56 / F Adm Date: 2 Loc: Room: [address] [place] [address] Type: ADM IN Attending Dr: Hong Jewell DO Copies to: ~ Date of Service: [...] 11:01 Dextrose IV 12/06/21 20:59 100 mls/hr .[id number] [facility] Administration Sodium Chloride 1,000 mls @ [...] shortage of IV Ativan. Documented By: Hong Jewell DO 1920 Signed By: <Electronically signed by Hong Jewell DO> 12/06/211931 [facility] Work Phone: [phone] Consult note Author Rehan Russ [facility] December 06, 2021 5:46pm Note Date/Time December 06, 2021 5: 46pm [facility] [address] [place] [address] Gastroenterology Consult Note Signed Patient: Orestes Alvares MR#: [id number] : 1965 Acct:[id number] Age/Sex: 56 / F Adm Date: 2 Loc: Room: [address] [place] [address] Type: ADM IN Attending Dr: Hong Jewell DO Copies to: DO Hong Rose DO Lawrence R Mccormack, MD~ HPI Data of Consult Date of Consultation: 12/06/21 Requesting Physician: Hong eJwell DO Consult Narrative History of present illness: Ms. Alvares is a 56 year old female who is referred because of anemia and GI bleeding. History is well recorded. The patient was transferred to the [facility] ER and admitted the day before yesterday [...] EGD and colonoscopy several years ago in [place]. She was told that she had a gastric polyp and a colon polyp. She has not had this rechecked. Hemoglobin did drop to 7.7 but is now 8.7. Stool for occult blood is negative. Blood counts show macrocytic indices with normal ferritin. Review of systems includes hypertension, hypothyroidism, history of MA, history of SVT. cc:: CC: Hong Jewell DO Review of Systems Review of Systems [...] % (Auto) 62.7 Lymph % (Auto) 19.7 [place] % (Auto) 14.4 Eos % (Auto) 2.3 Baso % (Auto) 0.9 Neut # (Auto) 4.0 Lymph # (Auto) 1.3 [place] # (Auto) 0.9 H Eos # (Auto) [...] MPV Neut % (Auto) Lymph % (Auto) [place] % (Auto) Eos % (Auto) Baso % (Auto) Neut # (Auto) Lymph # (Auto) [place] # (Auto) Eos # (Auto) Baso # [...] <Electronically signed by MD Rehan Russ> 12/06/211745 [facility] Work Phone: [phone] Progress note Author William Esposito [facility] December 06, 2021 1:19pm Note Date/Time December 06, 2021 1: 19pm [facility] [address] [place] [address] Nephrology Progress Note Signed Patient: Orestes Alvares MR#: [id number] : 1965 Acct:[id number] Age/Sex: 56 / F Adm Date: 2 Loc: Room: [address] [place] [address] Type: ADM IN Attending Dr: Hong Jewell DO Copies to: ~ Date of Service: 12/06/2021 Subjective Subjective Narrative: Mrs. Alvares is a 56-year-old white female with history of COPD, smoker, alcohol abuse and hypothyroidism on levothyroxine who [facility] for abnormal blood work [...] 1 g of calcium before transfer to [facility]. Today's creatinine is slightly better 1.87 mg/dL [...] visible mass Skin: No rashes or bruises DIAGNOSTIC ASSISTANT: Awake,Alert, following simple command Musculoskeletal: No joint [...] 50.2 mls @ 100.4 mls/hr IV DAILY [facility] Stop: 12/04/22 13:59 Last Admin: 12/06/21 11:00 Dose: 100 mls/hr Thiamine HCl 200 mg/ Sodium (Chloride) 102 mls @ 204 mls/hr IV TID [facility] Stop: 12/04/22 21:59 Last Admin: 12/05/21 22:05 Dose: 204 mls/hr Levofloxacin (Levaquin) 750 mg in 150 mls @ 100 mls/hr IV Q48H [facility] Last Admin: 12/05/21 09:17 Dose: 100 mls/hr Ferric Sodium Gluconate Complex 250 mg/ Sodium Chloride 270 mls @ 135 mls/hr IVQAM [facility] Stop: 12/09/21 08:59 Last Admin: 12/06/21 11:01 Dose: 135 mls/hr Sodium Bicarbonate 150 meq/ (Dextrose) 1,150 mls @ 100 mls/hr IV .[id number] [facility] Stop: 12/06/21 20:59 Last Admin: 12/06/21 11:01 Dose: 100 mls/hr Levothyroxine Sodium (Levothyroxine 50 Mcg Tablet) 50 mcg PO DAILY.0630 [facility] Stop: 12/05/22 06:29 Last Admin: 12/06/21 05:30 [...] 100 Mg Tab.Er.24h) 100 mg PO DAILY [facility] Stop: 12/04/22 17:43 Last Admin: 12/06/21 11:12 Dose: Not Given Nicotine (Nicotine Patch 21 Mg/24hr 1 Each Patch.Td24) 1 each TRANSDERML DAILY [facility] Stop: 12/06/22 08:59 Omeprazole (Omeprazole 20 Mg Capsule.Dr) 20 mg PO DAILY [facility] Stop: 12/05/22 08:59 Last Admin: 12/06/21 11:13 [...] reading physician into a diagnostic report(s) for Orestes Alvares. I have reviewed the report(s) and am [...] signed by William Esposito MD> 12/06/21 1319 [facility] Work Phone: [phone] Progress note Author Hong Jewell [facility] [facility] December 05, 2021 5:23pm Note Date/Time December 05, 2021 5: 09pm [facility] [address] [place] [address] Hospitalist Progress Note Signed with Philippe Patient: Orestes Alvares MR#: [id number] : 1965 Acct:[id number] Age/Sex: 56 / F Adm Date: 2 Loc: 3T Room: [address] [place] [address] Type: ADM IN Attending Dr: Hong Jewell DO Copies to: ~ ADDENDUM1 Urinalysis is [...] with Levaquin IV. She lists allergies from [employer] which apparently caused nausea. Addendum Documented By: Hong Jewell DO 12/05/211722 Addendum Signed By: <Electronically signed by Hong Jewell DO> 12/05/211722 Date of Service: 12/05/2021 Subjective [...] Lactated Ringer's IV 12/04/22 14:14 75 mls/hr .[id number] CINTIA Administration Folic Acid 1 mg/ Dextrose [...] withdrawal signs or symptoms. Documented By: Hong Jewell DO 7 Signed By: <Electronically signed by Hong Jewell DO> 12/05/21 1722 [facility] Work Phone: 1(512) 484-298108-28-2022 Consult note Author Nilesh Oakley [facility] December 05, 2021 2:55pm Note Date/Time December 05, 2021 2: 55pm [facility] [address] [place] [address] Nephrology Consult Note Signed Patient: Orestes Alvares MR#: [id number] : 1965 Acct:[id number] Age/Sex: 56 / F Adm Date: 2 Loc: Room: [address] [place] [address] Type: ADM IN Attending Dr: Hong Jewell DO Copies to: DO Nilesh Rose MD Kristopher L Lindbloom, DO~ Providers Consult Date: 12/05/21 Requesting Provider: Hong Jewell DO Primary Care Provider: Segunod Rawls DO HPI Reason for Consult: Hyponatremia 125 mmol/L History of Present Illness: Mrs. Alvares is a 56-year-old white female with history of COPD, smoker, alcohol abuse and hypothyroidism on levothyroxine who [facility] for abnormal blood work [...] 1 g of calcium before transfer to [facility]. Today's creatinine is slightly better 1.87 mg/dL [...] History (Updated 12/04/21 @ 21:04 by Hong Jewell DO) Alcohol abuse Anemia COPD (chronic obstructive [...] Ringer's) 1,010 mls @ 75 mls/hr IV .[id number] [facility] Stop: 12/04/22 14:14 Last Admin: 12/05/21 01:34 Dose: 75 mls/hr Folic Acid 1 mg/ Dextrose 50.2 mls @ 100.4 mls/hr IV DAILY [facility] Stop: 12/04/22 13:59 Last Admin: 12/05/21 09:17 Dose: 100 mls/hr Thiamine HCl 200 mg/ Sodium (Chloride) 102 mls @ 204 mls/hr IV TID [facility] Stop: 12/04/22 21:59 Last Admin: 12/05/21 09:17 Dose: 204 mls/hr Levofloxacin (Levaquin) 750 mg in 150 mls @ 100 mls/hr IV Q48H [facility] Last Admin: 12/05/21 09:17 Dose: 100 mls/hr Levothyroxine Sodium (Levothyroxine 50 Mcg Tablet) 50 mcg PO DAILY.0630 [facility] Stop: 12/05/22 06:29 Last Admin: 12/05/21 06:55 Dose: Not Given Metoprolol Succinate (Metoprolol Succinate 100 Mg Tab.Er.24h) 100 mg PO DAILY [facility] Stop: 12/04/22 17:43 Last Admin: 12/05/21 09:17 Dose: 100 mg Omeprazole (Omeprazole 20 Mg Capsule.Dr) 20 mg PO DAILY [facility] Stop: 12/05/22 08:59 Last Admin: 12/05/21 09:17 Dose: 20 mg Potassium Chloride (Potassium Chloride Er 20 Meq Tab.Er.Prt) 20 meq PO DAILY PRN PRN Reason: Hypokalemia Stop: 12/04/22 10:15 Potassium Chloride (Potassium Chloride Er 20 Meq Tab.Er.Prt) 40 meq PO DAILY PRN PRN Reason: Hypokalemia Stop: 12/04/22 10:15 Sodium Bicarbonate (Sodium Bicarbonate 650 Mg Tablet) 1,300 mg PO TID.WITH.MEALS [facility] Stop: 12/04/22 13:34 Last Admin: 12/05/21 11:55 [...] Cloudy A Urine pH 5.5 Ur Specific Palm 1.013 Urine Protein 30 H Urine Glucose (UA) Normal Urine Ketones Negative Urine Occult Blood Negative Urine Nitrite Negative Ur Leukocyte Esterase 4+ H Urine RBC 1-2 Urine WBC Innumerable H Urine Bacteria 4+ H Radiology Impressions Impressions - last 24 hours: Any impression(s) listed above is documentation that was entered by the reading physician into a diagnostic report(s) for Orestes Palacios Юлия. I have reviewed the report(s) and am [...] Treatment of alcohol withdrawal and abuse. Dr. Jewell. Patient on IV thiamine. Appreciate this consultation we will be happy to follow the patient with you during your hospital stay This document was dictated utilizing computerized voice recognition technology. Errors in grammar, spelling, and or syntax may be noted. The creator of this document does not proofread for this. Documented By: Nilesh Oakley MD 12/05/21 3524 Signed By: <Electronically signed by MD Nilesh Oakley> 12/05/21 7599 [facility] Work Phone: 1(577) 206-490808-27-2022 History and physical note Author Hong Jewell [facility] December 04, 2021 9:07pm Note Date/Time December 04, 2021 9: 07pm [facility] [address] [place] [address] Hospitalist H&P Signed Patient: Orestes Alvares MR#: [id number] : 1965 Acct:[id number] Age/Sex: 56 / F Adm Date: 2 Loc: Room: [address] [place] [address] Type: ADM IN Attending Dr: Hong Jewell DO Copies to: DO Hong Rose, ~ HPI DATE OF EXAMINATION: 12/04/21 CHIEF COMPLAINT: weakness, passing out, lightheadedness. HISTORY OF PRESENT ILLNESS: This is a 56-year-old woman who presented to the [facility] emergency room yesterday evening with complaints of [...] supposed to come get established with a web content specialist in [place]. She also was supposed to see a air hole driller because she has probably rheumatoid arthritis and she has had a rash on her back for many decades. She has a fullness in the supraclavicular regions on both right and the left side. She says that the [facility] told her that these were lipomas based [...] the age of 17. I gave her [id number] history. In terms of alcohol use she [...] History (Updated 12/04/21 @ 21:04 by Hong Jewell DO) Alcohol abuse Anemia COPD (chronic obstructive [...] % (Auto) 13.0 % (.) 12/04/21 11:47 [place] % (Auto) 13.9 % (.) 12/04/21 11:47 Eos % (Auto) 1.2 % (.) 12/04/21 11:47 Baso % (Auto) 0.4 % (.) 12/04/21 11:47 Neut # (Auto) 4.5 x10E3/uL (1.8-7.7) 12/04/21 11:47 Lymph # (Auto) 0.8 x10E3/uL (1.00-4.8) L 12/04/21 11:47 [place] # (Auto) 0.9 x10E3/uL (0.0-0.8) H 12/04/21 [...] acute alcohol withdrawal delirium. Documented By: Hong Jewell DO 2031 Signed By: <Electronically signed by Hong Jewell DO> 12/04/212106 [facility] Work Phone: Evaluation note* Diagnosis Onset [...] acute Vasovagal syncope acute [facility] Work Phone: Evaluation noteNo assessment information available [facility] Work Phone: Evalughoor note* Diagnosis Onset Date Resolution Status GERD (gastroesophageal reflux disease) acute Hypertension acute Hypomagnesemia acute Hypothyroid acute Lupus acute Paroxysmal atrial fibrillation with RVR acute Rheumatoid arthritis acute Stress-induced cardiomyopathy acute Type [address] [facility] Work Phone: Evaluation note* Diagnosis Onset [...] cardiomyopathy acute Type [address] [facility] Work Phone: Evaluation note* Diagnosis Anxiety about treatment- [facility] Diagnosis Anxiety about treatment- Primary [facility] Diagnosis Anxiety disorder, unspecified type- Primary [facility] this [facility] N[facility]ative - Reported* Type Description Date Medical History COPD Medical History HYPOTHYROIDISM Medical History ALCOHOL ABUSE Medical History SMOKER Medical History ANEMIA Medical History HYPOMAGNESEMIA Medical History HYPOCALCEMIA Medical History HYDRONEPHROSIS Surgical History X 2 Surgical History D&C X2 Surgical History LUMPECTOMY ON BOTH BREAST Surgical History 2 HEART ABLASIONS Hospitalization History SEE ABOVE Hospitalization History DEHYDRATION 12/2021 [facility] Other Hospital Discharge instructions Additional Instructions Dietary recommendations: - Magic cup (or equivalent) twice daily [facility] Work Phone: Hospital Discharge instructions Additional Instructions Follow-up with your primary care doctor Return to ED if develop worsening symptoms or concerns Take your medications [facility] Work Phone: Hospital Discharge instructionsAmbulatory Orders* Referral to Cardiology Location: None Selected * Referral to Rheumatology Location: None Selected [facility] Work Phone: Hospital Discharge instructionsAmbulatory Orders* Referral to Cardiology Location: None Selected [facility] Work Phone: InstructionsNot on filedocumented in this encounter [facility] SystemInstructionsNot on filedocumented in this encounter [facility] Summary Purpose Family History Relationship Condition [...] Time Advance Directives No September 27 2:28pm Date Activated Date Inactivated Comments 06/25/2024 2:15 PM 07/03/2024 7:47 PM Date Activated Date Inactivated Comments 06/25/2024 2:07 PM 06/25/2024 2:15 PM Date Activated Date Inactivated Comments 06/13/2024 8:54 PM 06/25/2024 2:07 PM Chief Complaint and Reason for Visit Chief [...] 092023 2:30pm Weakness December 27, 2023 2:30pm Chief Complaint Admit Date Unknown June 12, 2024 6:05 pm Additional Source Comments INFORMATION SOURCE (unrecogn ized section and content) DATE CREATED AUTHOR 09/29/2017 [facility] DATE CREATED AUTHOR AUTHOR'S ORGANIZ ATION 01/07/2022 [facility] DATE CREATED AUTHOR AUTHOR'S ORGANIZ ATION 02/02/2022 [facility] DATE CREATED AUTHOR AUTHOR'S ORGANIZ ATION 06/15/2024 [facility] DATE CREATED AUTHOR AUTHOR'S ORGANIZ ATION 06/19/2024 [facility] DATE CREATED AUTHOR AUTHOR'S ORGANIZ ATION 06/21/2024 [facility] DATE CREATED AUTHOR AUTHOR'S ORGANIZ ATION 07/30/[address] [facility] Care Teams (unrecognized sec tion and content) Team Status: Inactive Member Role Status Dates Segundo Rawls DO Primary Care Provider Active Hong Jewell DO Admit Provider, Attending Pr ovider Active [...] Naila Kolb MD Other Provider Active Luis Leonardo MD Other Provider Active Lowell Trejo MD Other Provider Active Benedicto Santamaria MD Other Provider Active Lul Austin Jr, MD Other Provider Active Jagruti Ugalde MD Other Provider Active Brad Gan MD Other Provider Active Team Status: Active Member Role Status Dates Segundo Rawls DO Primary Care Provider Active Team Status: Inactive Member Role Status Dates Segundo Rawls DO Primary Care Provider Active Caden Jarrell DO Emergency Provider Active Team Status: Active Member Role Status Dates Katie Velasquez APRN MANAGER ETHICS-C Primary Care Provider Active Team Status: Inactive Member Role Status Dates Katie Velasquez APRN MANAGER ETHICS-C Primary Care Provider, Attending Provider Active Start: September 28, 2023 End: September 28, 2023 Team Status: Inactive Member Role Status Dates Katie Velasquez APRN MANAGER ETHICS-C Primary Care Provider, Attending Provider Active Start: December 27, 2023 End: December 27, 2023 Team Status: Inactive Member Role Status Dates Katie Velasquez APRN MANAGER ETHICS-C Primary Care Provider, Attending Provider Active Start: February 19, 2024 End: February 19, 2024 Team Status: Active Member Role Status Dates PHYSICIAN NO FAMILY Primary Care Provider Active Team Status: Active Member Role Status Dates Katie Velasquez APRN MANAGER ETHICS-C Primary Care Provider Active Start: April End: April 28, 2024 Owen Zamorano DO Attending Provider Active Sta rt: April 22, 2024 End: April 28, 2024 Fco Saavedra MD Referring Provider Active Sta rt: April 22, 2024 End: April 28, 2024 Team Status: Inactive Member Role Status Dates Katie Velasquez APRN MANAGER ETHICS-C Primary Care Provider Active Start: June 12, 2024 End: June 12, 2024 Sheryl Santamaria DO Attending Provider Active Sta rt: June 12, 2024 End: June 12, 2024 Team Status: Active Member Role Status Dates Katie Velasquez APRN MANAGER ETHICS-C Primary Care Provider, Attending Provider Active Start: June 12, 2024 Team Status: Active Member Role Status Dates PHYSICIAN NO FAMILY Primary Care Provider Active Start: June 13, 2024 Foc Saavedra MD Attending Provider Active Sta rt: June 13, 2024 Pan Helper Relationship Specialty Start Date End Date Katie Velasquez NP [address] [place] [id number] PCP - General Family Medicine 01/16/24 Pan Helper Relationship Specialty Start Date End Date Katie Velasquez NP [address] [place] [address] PCP - General Family Medicine 01/16/24 Goals (unrecognized section and content) Goals may be documented in a n alternate sectionNo InformationGoals may be documented in an alternate sectionGoals may be documented in an alternate sectionGoals may be documented in an alternate sectionNot on filedocumented as of this encounterGoals may be documented in an alternate section [...] BE BASED ON THE PRIMARY CLINICAL RECORDS. [facility] [employer] [facility]. provides no warranty or guarantee of the accuracy or completeness of information in this document.
[2024-08-28 21:07] LABS: Hemoglobin 6.9 g/dL (12.0-16.0)
== END 2024-08-28 20:47 | disposition home or self-care (01) ==
LOC: LAB 20:46
PROVIDERS: Visit Provider Nurse Practitioner Family
DX: D64.9 Anemia, unspecified (principal)
CPT/HCPCS: 36415; 85018

== ENCOUNTER 2024-09-16 21:16 | Emergency (ER) | payer OTHER, MEDICAID, SELFPAY ==
--- OUTSIDE RECORDS SUMMARY | 2024-09-08 06:00 | XMS_ITS ---
Author Organization [facility] Address [address] [place] [id number] Care Team Providers Care Business Services Coordinator Name Role Phone RAFAEL AZAR Unavailable [phone] REASON FOR VISIT Acute on chronic hypoxic hypercapnic respiratory failure, Pulmonary Hypertension Encounters Encounter Location Date Provider Diagnosis [address] [id number] 09/08/2024 RAFAEL AZAR Acute on chronic hyp oxic respiratory failure J96.21 ; Acute on chronic respiratory failure with hypercapnia J96.22 ; Pulmonary hypertension, unspecified I27.20 and Congestive heart failure I50.9 Assessments Encounter Date Diagnosis (ICD Code) Assessment Notes Treatment Notes Treatment Clinical Notes Section Notes 09/08/2024 Acute on chronic hypoxic respiratory failure (ICD-10 - J96.21) 09/08/2024 Acute on chronic respiratory failure with hypercapnia (ICD-10 - J96.22) 09/08/2024 Pulmonary hypertension, unspecified (ICD-10 - I27.20) 09/08/2024 Congestive heart failure (ICD-10 - I50.9) Plan Of Treatment Next Appt Details Follow Up: 2 - 3 Days, Reaso n: Progress Notes * Nicko REDMANB:[birth year] (59 yo F)Acc No.[id number]:09/08/2024 Progress Notes Patient: Matt TURNERAdamJuanita Provider: Joanna Azar MD :1965 A ge:59 Y S ex:Female Date:09/08/2024 Phone: Address[address] [id number] Subjective: * Chief Complaints: * A cute on chronic hypoxic hypercapnic respiratory failurePulmonary Hypertension * HPI: C onstitutional: Continuing to see patient for pulmonary management. Discussed pulmonary status with RT and addressed all needs and concerns. Please let us know of any pulmonary changes. Impression: Acute on chronic hypoxic hypercapnic respiratory failure Pulmonary Hypertension CHF Hx of tobacco abuse Hx of alcohol dependence Afib Plan: Prednisone 40 mg daily x 5 days On RA, maintain saturations 92% or above DuoNeb TID and Q6 PRN Refuses bipap or cpap therapy [...] * Provider: Joanna Azar MD Date: 0 09/08/2024 Generated for Markel paz/Elizabeth/Keriitting on: 0 09/16/2024 09:23 PM EDT History and Physical Notes * HPI (History of Present Illness) Category Sub-Category Detail Notes Category Not es Constitutional Continuing to see patient for pulmonary management. Discussed pulmonary status with RT and addressed all needs and concerns. Please let us know of any pulmonary changes. Impression: Acute on chronic hypoxic hypercapnic respiratory failure Pulmonary Hypertension CHF Hx of tobacco abuse Hx of alcohol dependence Afib Plan: Prednisone 40 mg daily x 5 days On RA, maintain saturations 92% or above DuoNeb TID and Q6 PRN Refuses bipap or cpap therapy [...]
--- OUTSIDE RECORDS SUMMARY | 2024-09-10 06:45 | XMS_ITS ---
Author Organization [facility] Address [address] [place] [id number] Care Team Providers Care Pediatric Intensive Physician Name Role Phone RAFAEL AZAR Unavailable [phone] USMAN COLEMANOHAR Unavailable [phone] REASON FOR VISIT Acute on chronic hypoxic hypercapnic respiratory failure, Pulmonary Hypertension Problems Problem Type SNOMED Code ICD Code Onset Dates Problem Status W/U Status Risk Notes Problem Chronic hypoxic respiratory failure (J96.11) Active confirmed Problem Chronic respiratory failure (93865801) Chronic respiratory failure with hypercapnia (J96.12) Active confirmed Encounters Encounter Location Date Provider Diagnosis [address] [id number] 09/10/2024 [facility]LE Chronic hypoxic respiratory failure J96.11 ; Chronic respiratory failure with hypercapnia J96.12 ; Pulmonary hypertension, unspecified I27.20 and Congestive heart failure I50.9 Assessments Encounter Date Diagnosis (ICD Code) Assessment Notes Treatment Notes Treatment Clinical Notes Section Notes 09/10/2024 Chronic hypoxic respiratory failure (ICD-10 - J96.11) 09/10/2024 Chronic respiratory failure with hypercapnia (ICD-10 - J96.12) 09/10/2024 Pulmonary hypertension, unspecified (ICD-10 - I27.20) 09/10/2024 Congestive heart failure (ICD-10 - I50.9) 09/10/2024 Other Seen in collaboration and discussed plan of care with Dr. Rafael Azar Plan Of Treatment Treatment Notes Assessment Notes Other Seen in collaboratio n and discussed plan of care with Dr. Rafael Azar Next Appt Details Follow Up: 2 - 3 Days, Reaso n: Progress Notes * Nicko REDMANB:[birth year] (59 yo F)Acc No.[id number]:09/10/2024 Progress Notes Patient: Juanita SRINIVASAN Appointment Provider: Marcus Cole NP :1965 A ge:59 Y S ex:Female Date:09/10/2024 Phone: Address:[place], [id number] Subjective: * Chief Complaints: * A cute on chronic hypoxic hypercapnic respiratory failurePulmonary Hypertension * HPI: Juan A coombs Up: Continuing to see patient for pulmonary management. Rounded at bedside with the respiratory team. Discussed patients pulmonary status and current orders. Resident is sitting in chair on RA. Free from distress. No concerns from RT. Impression: Chronic hypoxic hypercapnic respiratory failure Pulmonary Hypertension CHF Hx of tobacco abuse Hx of alcohol dependence Afib Plan: On RA, maintain saturations 92% or above DuoNeb Q6H PRN Refuses bipap or cpap therapy Here [...] or edema. ? Assessment: * Assessment: 1. C hronic respiratory failure with hypercapnia - J96.12 (Primary) 2 . C hronic hypoxic respiratory failure - J96.11 3 . P ulmonary hypertension, unspecified - I27.20 4 . C ongestive heart failure - I50.9 Plan: * Treatment: * Procedure Codes: * Follow Up: 2 - 3 Days * * Sign off status: Completed true * Appointment Provider: Marcus Cole NP Date: 0 09/10/2024 Generated for Markel paz/Elizabeth/Nainransmitting on: 0 09/16/2024 09:23 PM EDT History and Physical Notes * HPI (History of Present Illness) Category Sub-Category Detail Notes Category Not es Follow Up Continuing to see patient for pulmonary management. Rounded at bedside with the respiratory team. Discussed patients pulmonary status and current orders. Resident is sitting in chair on RA. Free from distress. No concerns from RT. Impression: Chronic hypoxic hypercapnic respiratory failure Pulmonary Hypertension CHF Hx of tobacco abuse Hx of alcohol dependence Afib Plan: On RA, maintain saturations 92% or above DuoNeb Q6H PRN Refuses bipap or cpap therapy Here for PT, OT, ST, goal to go home Hemodialysis has been discontinued Will continue to monitor pulmonary status Examination Category Sub-Category Detail Notes Category Not es General Examination GENERAL APPEARANCE: in no ac [place] distress, well developed, well nourished THROAT: normal NECK/THYROID: neck supple, full ra nge of motion HEART: no murmurs, regular rate and rhythm, S1, S2 normal LUNGS: clear to auscultatio n bilaterally SKIN: warm and dry EXTREMITIES: no clubbing, cyanosi s, or edema ORAL CAVITY: mucosa moist
--- OUTSIDE RECORDS SUMMARY | 2024-09-12 13:47 | XMS_ITS | Encounter Summary ---
Author Organization [facility] tem Address [id number] [address] [place] [address] Care Team Providers Care Oracle Consultant Name Role Phone Alana Miller APRNENVIRONMENTAL SERVICES FLOOR TECH Primary Care Provider Reason for Referral * Diagnostic Imaging (Routine) - Closed Specialty Diagnoses / Procedures Referred By Reuben hoffman Referred To Contact Radiology Diagnoses Hematoma Lump of right wrist Procedures CT wrist right without contrast Fatimah Andres APRN-CNP [id number] [place] [phone] Phone: tel: fax: Referral ID Status Reason Start Date Expiration Date Visits Re quested Visits Authorized [id number] Closed 08/19/2024 08/19/2025 1 1 Reason for Visit * Diagnostic Imaging (Routine) - Closed Specialty Diagnoses / Procedures Referred By Reuben hoffman Referred To Contact Radiology Diagnoses Hematoma Lump of right wrist Procedures CT wrist right without contrast Fatimah Andres APRN-CNP [id number] [place] [phone] Phone: tel: fax: Referral ID Status Reason Start Date Expiration Date Visits Re quested Visits Authorized [id number] Closed 08/19/2024 08/19/2025 1 1 Encounter Details Date Type Department Care Team (Latest Contact Info) Description 09/12/2024 1:47 PM EDT - 09/12/2024 11:59 PM EDT Hospital Encounter [facility] [address] [place] [address] Hematoma; Lump of right wrist Discharge Disposition: Home Social History Tobacco Use Types Packs/Day Years Used Date Smoking Tobacco: Never Assessed Childcare Answer Date Recorded Childcare Unknown 09/19/2018 Employment Answer Date Recorded Employment Unknown 09/19/2018 Comments No Sex and Gender Information Value Date Recorded Sex Assigned at Not on file Legal Sex Female 11:29 AM EDT Gender Identity Not on file Sexual Orientation Not on file documented as of this encounter Medications at Time of Discharge carvediloL (COREG) 12.5 mg tabletIndications :hypertension Take 1 tablet (12.5 mg total) by mouth in the morning and 1 tablet (12.5 mg total) before bedtime. Indications: high blood pressure. 90 tablet 2 07/03/2024 darbepoetin naai-polysorbate (ARANESP) 60 mcg/0.3 mL syringeIndication s:anemia due to renal failure Inject 0.3 mL (60 mcg total) under the skin once a week Indications: anemia due to kidney failure. 0.3 mL 5 07/05/2024 ELIQUIS 2.5 mg tablet Take 1 tablet (2.5 mg total) by mouth in the morning and 1 tablet (2.5 mg total) before bedtime. 04/28/2024 ipratropium-albut Sabina (DUONEB) 0.5 mg-3 mg(2.5 mg base)/3 mL nebulizerIndicati ons:Acute respiratory failure with hypoxia ([facility]) Inhale 3 mL by nebulization every 4 (four) hours as needed for wheezing. 30 mL 2 07/03/2024 levothyroxine (SYNTHROID, LEVOTHROID) 100 MCG tablet Take 1 tablet (100 mcg total) by mouth in the morning. midodrine (PROAMATINE) 10 mg tablet Take 1 tablet (10 mg total) by mouth as needed (give pre/mid during dialysis as needed for SBP <100). 07/03/2024 pantoprazole (PROTONIX) 40 mg EC tablet Take 1 tablet (40 mg total) by mouth every morning before breakfast. 05/24/2024 sennosides-docusa te sodium (SENOKOT-S) 8.6-50 mg Take 2 tablets by mouth as needed for constipation. 30 tablet 07/03/2024 documented as of this encounter Plan of Treatment Pending Results Name Type Priority Associated Diagnoses Date /Time CT wrist right without contrast Imaging Routine Hematoma Lump of right wrist 09/12/2024 2:14 PM EDT Scheduled Orders Name Type Priority Associated Diagnoses Orde r Schedule CT wrist right without contrast Imaging Routine Hematoma Lump of right wrist Once for 1 Occurrences starting 09/12/2024 until 09/12/2024 documented as of this encounter Goals Goal Patient Goal Type Associated Problems Recent Progress Patient-Stated? Author <enter goal here> General Yes Mattie Mccarthy, RN Note: Evaluation of progress towards goal: Progress towards discharge documented as of this encounter Visit Diagnoses Diagnosis Hematoma Contusion of unspecified site Lump of right wrist documented in this encounter Care Teams Oracle Consultant Relationship Specialty Start Date End Date Alana Miller, [employer] FIELDER-ENVIRONMENTAL SERVICES FLOOR TECH [address] [place] [address] PCP - General Nurse Practitioner 09/12/24 documented as of this encounter
--- OUTSIDE RECORDS SUMMARY | 2024-09-15 06:00 | XMS_ITS ---
Author Organization [facility] Address [address] [place] [id number] Care Team Providers Care Warehouse Hand Name Role Phone MELIDA AZARY Unavailable [phone] REASON FOR VISIT Chronic hypoxic hypercapnic respiratory failure, Pulmonary Hypertension Encounters Encounter Location Date Provider Diagnosis [address] [id number] 09/15/2024 RAFAEL AZAR Chronic hypoxic respiratory failure J96.11 ; Chronic respiratory failure with hypercapnia J96.12 ; Pulmonary hypertension, unspecified I27.20 and Congestive heart failure I50.9 Assessments Encounter Date Diagnosis (ICD Code) Assessment Notes Treatment Notes Treatment Clinical Notes Section Notes 09/15/2024 Chronic hypoxic respiratory failure (ICD-10 - J96.11) 09/15/2024 Chronic respiratory failure with hypercapnia (ICD-10 - J96.12) 09/15/2024 Pulmonary hypertension, unspecified (ICD-10 - I27.20) 09/15/2024 Congestive heart failure (ICD-10 - I50.9) Plan Of Treatment Next Appt Details Follow Up: 2 - 3 Days, Reaso n: Progress Notes * Andrea REDMANMiltonB:[birth year] (59 yo F)Acc No.[id number]:09/15/2024 Progress Notes Patient: Juanita SRINIVASAN Provider: Joanna Azar MD :1965 A ge:59 Y S ex:Female Date:09/15/2024 Phone: Address:[address] [place], [place] [phone] Subjective: * Chief Complaints: * C hronic hypoxic hypercapnic respiratory failurePulmonary Hypertension * HPI: F ollow Up: Continuing to see patient for pulmonary management. Rounded in the facility with the respiratory team today to address any pulmonary needs or concerns. Impression: Chronic hypoxic hypercapnic respiratory failure Pulmonary [...] true * Provider: Joanna Azar MD Date: 09/15/2024 Generated for Markel paz/Elizabeth/Lakishasmitting on: 0 09/16/2024 09:23 PM EDT History and Physical Notes * HPI (History of Present Illness) Category Sub-Category Detail Notes Category Not es Follow Up Continuing to see patient for pulmonary management. Rounded in the facility with the respiratory team today to address any pulmonary needs or concerns. Impression: Chronic hypoxic hypercapnic respiratory failure Pulmonary [...]
[2024-09-16] VITALS (22 sets, daily range): BP systolic 69–82; BP diastolic 38–50; PULSE 69–79; TEMP 37.5; O2SAT 85–98; BMI 24.0
--- OUTSIDE RECORDS SUMMARY | 2024-09-16 21:23 | XMS_ITS ---
Author Organization [facility] tem Address [id number] [address] [place] [address] Care Team Providers Care Loading Rack Supervisor Name Role Phone Alana Miller APRN-RELAY TECHNICIAN Primary Care Provider Dialysis Access Sites Type Status Location Placement [...] PM EDT Mucus plug in respiratory tract [place] BRNCHSC W/BRNCL ALVEOLAR LAVAGE 07/02/2024 12:52 PM [...] 025 12:00 AM EDT BRONCHOPULMONARY HYGIENE Routine 025 [...] 06/22/2024 2:19 AM EDT BRONCHOPULMONARY HYGIENE Routine 2:00 AM EDT HEMOGLOBIN AND HEMATOCRIT, BLOOD [...] 06/21/2024 8:00 AM EDT BRONCHOPULMONARY HYGIENE Routine 8:00 AM EDT RESP ARTERIAL LINE SETUP [...] Routine 025 4:00 AM EDT VENTILATION Routine 06/18/2024 4:00 [...] Routine 025 4:00 AM EDT VENTILATION Routine 06/16/2024 4:00 [...] EST POTASSIUM Routine 06/16/2024 12:00 AM EST from Last 3 Months Allergies No known [...] mL nebulizerIndica tions:Acute respiratory failure with hypoxia ([facility]) Inhale 3 mL by nebulization every 4 (four) hours as needed for wheezing. 30 mL 2 5 Active midodrine (PROAMATINE) 10 mg tablet Take 1 tablet (10 mg total) by mouth as needed (give pre/mid during dialysis as needed for SBP <100). 5 Active Active Problems Problem Noted Date Diagnosed [...] well with no immediate complication Catheter used Cassandra Path 23 cm tunneled / cuffed catheter. [...] well with no immediate complication Catheter used Cassandra Path 23 cm tunneled / cuffed catheter. [...] 6:15 AM EDT) Only the most recent of18 resultswithin the time period is included. Anatomical [...] 2:48 AM EDT) Only the most recent of18 resultswithin the time period is included. White Blood Cells 8.1 4.0 - 11.0 X10E9/L 07/03/2024 3:18 AM EDT [facility] RBC count 2.45(L) 3.80 - 5.20 X10E12/L 07/03/2024 3:18 AM EDT [facility] Hemoglobin 7.8(L) 11.7 - 15.5 g/dL 07/03/2024 3:18 AM EDT [facility] Hematocrit 23.7(L) 35 - 47 % 07/03/2024 3:18 AM EDT [facility] MCV 97 80 - 100 fL 07/03/2024 3:18 AM EDT [facility] MCH 31.8 27 - 34 pg 07/03/2024 3:18 AM EDT [facility] MCHC 32.8 32 - 36 g/dL 07/03/2024 3:18 AM EDT [facility] RDW 18.3(H) 11.5 - 15.0 % 07/03/2024 3:18 AM EDT [facility] Platelets 330 150 - 450 X10E9/L 07/03/2024 3:18 AM EDT [facility] MPV 7.2 7 - 12 fL 07/03/2024 3:18 AM EDT [facility] % neutrophils 90.0 % 07/03/2024 3:18 AM EDT [facility] % lymphocytes 7.7 % 07/03/2024 3:18 AM EDT [facility] % monocytes 1.2 % 07/03/2024 3:18 AM EDT [facility] % eosinophils 0.5 % 07/03/2024 3:18 AM EDT [facility] % Basophils 0.6 % 07/03/2024 3:18 AM EDT [facility] Neutrophils Absolute (A) 7.3(H) 1.5 - 6.6 X10E9/L 07/03/2024 3:18 AM EDT [facility] Lymphocytes Absolute 0.6(L) 1.0 - 3.5 X10E9/L 07/03/2024 3:18 AM EDT [facility] Monocytes Absolute 0.1 0 - 0.9 X10E9/L 07/03/2024 3:[facility] Eosinophils Absolute 0.0 0.0 - 0.4 X10E9/L 07/03/2024 3:18 AM EDT [facility] Basophils Absolute 0.0 0.0 - 0.2 X10E9/L 07/03/2024 3:18 AM EDT [facility] Blood / Unknown 07/03/2024 2 :48 AM EDT 07/03/2024 3:00 AM EDT us Nathaly Cristina MD LAB BLOOD ORDERABLES Final Resu lt Performing Organization Address City/[facility]/ZIP Co de Phone Number [facility] [address] [place] [id number] * Phosphorus (07/03/2024 2:48 AM EDT) Only the most recent of21 resultswithin the time period is included. Phosphorus 3.6 2.4 - 4.9 mg/dL 07/03/2024 3:31 AM EDT [facility] PLASMA 07/03/2024 2:48 AM EDT 07/03/2024 3:00 AM EDT us Nathaly Cristina MD LAB BLOOD ORDERABLES Final Resu lt Performing Organization Address [facility] Co de Phone Number [facility] [address] [place] [id number] * Magnesium (07/03/2024 2:48 AM EDT) Only the most recent of24 resultswithin the time period is included. Magnesium 2.1 1.8 - 2.6 mg/dL 07/03/2024 3:31 AM EDT [facility] PLASMA 07/03/2024 2:48 AM EDT 07/03/2024 3:00 AM EDT us Nathaly Cristina MD LAB BLOOD ORDERABLES Final Resu lt Performing Organization Address City/[facility] Co de Phone Number [facility] [address] [place] [id number] * (ABNORMAL) Comprehensive metabolic panel (07/03/2024 2:48 AM EDT) Only the most recent of18 resultswithin the time period is included. Sodium 136 134 - 146 mmol/L 07/03/2024 3:31 AM [facility] Potassium, Bld 4.5 3.5 - 5.0 mmol/L 07/03/2024 3:31 AM [facility] Chloride 100 98 - 109 mmol/L 07/03/2024 3:31 AM [facility] CO2 24 22 - 32 mmol/L 07/03/2024 3:31 AM [facility] Anion gap 12 5 - 15 mmol/L 07/03/2024 3:31 AM [facility] BUN 32(H) 5 - 27 mg/dL 07/03/2024 3:31 AM [facility] Creatinine 2.02(H) 0.40 - 1.00 mg/dL 07/03/2024 3:31 AM [facility] Comment:METHOD TRACEABLE TO IDMS STANDARD Glucose 131(H) 65 - 99 mg/dL 07/03/2024 3:31 AM [facility] Calcium 9.8 8.5 - 10.5 mg/dL 07/03/2024 3:31 AM [facility] Total Protein 7.4 6.0 - 8.0 g/dL 07/03/2024 3:31 AM [facility] Albumin 4.2 3.2 - 5.3 g/dL 07/03/2024 3:31 AM [facility] Alkaline Phosphatase 60 39 - 130 U/L 07/03/2024 3:31 AM [facility] AST 9 0 - 41 U/L 07/03/2024 3:31 AM [facility] ALT 6 0 - 31 U/L 07/03/2024 3:31 AM [facility] Total bilirubin 1.2 0.3 - 1.2 mg/dL 07/03/2024 3:31 AM [facility] eGFR (CKD-EPI)non-rac e dependent 28(L) >59 ml/min/1.7 3sq.m 07/03/2024 3:31 AM EDT [facility] Comment: Reported eGFR is based on the CKD-EPI 2020 equation that does not use a race coefficient. PLASMA 07/03/2024 2:48 AM EDT 07/03/2024 3:00 AM EDT Nathaly Cristina MD LAB BLOOD ORDERABLES Final Resu lt [facility] [address], [address] [place] [address] * ECG 12 lead (07/02/2024 10:43 PM EDT) 07/02/2024 10:4 3 PM EDT Narrative [facility] - 07/04/2024 4:21 PM EDT Nathaly Cristina MD ECG ORDERABLES Final Result Performing Organization Address City/[facility]/ZIP Co de Phone Number [facility] * Hemodialysis inpatient (07/02/2024 5:49 PM EDT) Narrative Abhijit Velasco RN - 07/02/2024 5:49 PM EDT Abhijit Velasco RN 07/02/2024 6:17 PM Juanita Sue Юлия completed 3 hr Hemodialysis on 07/02/24. Patient [...] 4:32 PM EDT) Only the most recent of8 resultswithin the time period is included. Sample Type ARTERIAL 07/02/2024 4:48 PM EDT [facility] Body Temp 37.0 37.0 C 07/02/2024 4:48 PM EDT [facility] pH 7.252(L) 7.350 - 7.450 07/02/2024 4:48 PM EDT [facility] PCO2 52.7(H) 35 - 45 MMHG 07/02/2024 4:48 PM EDT [facility] PO2 66(L) 80 - 100 MMHG 07/02/2024 4:48 PM EDT [facility] Base,Deficit 4.0(H) 0.0 - 2.0 MMOL/L 07/02/2024 4:48 PM EDT [facility] Portable HCO3 23.2 22 - 26 MMOL/L 07/02/2024 4:48 PM EDT [facility] % O2 Sat 89.0(L) >90 % 07/02/2024 4:48 PM EDT [facility] Jagdeep's Test NA 07/02/2024 4:48 PM EDT [facility] SPO2 91 % 07/02/2024 4:48 PM EDT [facility] Sample Site RRad 07/02/2024 4:48 PM EDT [facility] Insp. O2 Conc. 28 % 07/02/2024 4:48 PM EDT [facility] Oxygen Source NPPV 07/02/2024 4:48 PM EDT [facility] Artrial Blood Specimen 07/02/2024 4:32 PM EDT 07/02/2024 4:48 PM EDT us Cristy Hampton MD LAB BLOOD ORDERABLES Final R esult MARLODAINA [facility] [address] [place] [address] * AFB culture concentrated includes AFB smear (07/02/2024 1:04 PM EDT) AFB Smear NO ACID FAST BACILLI (CONCENTRATED SMEAR) 07/03/2024 10:10 AM EDT [facility] Culture NO ACID FAST BACILLI ISOLATED IN 8 WEEKS 09/10/2024 12:35 PM EDT [facility] Bronchoalveolar Lavage Structure of lower lobe of left lung / Unknown 07/02/2024 1:04 PM EDT Comment:Pre-op diagnosis: Mucus plug in respiratory tract [T17.998A] us Quintin Forman MD MICROBIOLOGY - GENERAL ORDERABLE S Final Result [facility] [address] [place] [address], [address] [place] [address] * Cytology (07/02/2024 1:04 PM EDT) Bronchoalveolar Lavage Structure of lower lobe of left lung / Unknown 07/02/2024 1:04 PM EDT Comment:Pre-op diagnosis: Mucus plug in respiratory tract [T17.998A] Narrative COPATH - 07/03/2024 4:31 PM EDT [facility] [address] [place] [address] Cytology Consultation Patient Name:JUANITA REDMAN:1965 (Age: 59)Gender:FTaken:07/02/2024Reported:07/03/2024 16:31Physician(s):Quintin Forman M.D. ([phone])Copy To: Rec. #:[id number]: #[id number] Final Cytologic Diagnosis Lung, left lower lobe, bronchoalveolar lavage: No malignant cells identified. ao/07/03/2024 Interpretation performed at [facility], [address] [place] [address], License number: [id number].Electronically Signed Out By Earl Boone MD Clinical History Mucus plug in respiratory tract [T17.998A]. Acute hypoxic respiratory failure (CMS-HCC) [J96.01]. Gross Description Received was 5ml of clear colorless fluid unfixed labeled as [place], lung, left lower lobe, BAL . CytoLyt added in lab. Unable to obtain cellblock, ThinPrep made. Source of Specimen Lung, left lower lobe, bronchoalveolar lavage Non MANAGER MATERIALS MANAGEMENT ThinPrep Fee Code(s): 1; 76883 Quintin Forman MD PATHOLOGY/CYTOLOGY ORDERABLES Fi nal Result COPATH * (ABNORMAL) Lower resp/sputum culture inc gram stain: Patient acquired (07/02/2024 1:04 PM EDT) Gram Stain Result 1 to 9 WHITE BLOOD CELLS/LPF 07/02/2024 10:56 PM EDT [facility] Gram Stain Result 10 to 24 SQUAMOUS EPITHELIAL CELLS/LPF 07/02/2024 10:56 PM EDT [facility] Gram Stain Result 0 CILIATED EPITHELIAL CELLS/LPF 07/02/2024 10:56 PM EDT [facility] Gram Stain Result MANY GRAM POSITIVE COCCI 07/02/2024 10:56 PM EDT [facility] Gram Stain Result FEW GRAM NEGATIVE RODS 07/02/2024 10:56 PM EDT [facility] Gram Stain Result FEW GRAM NEGATIVE DIPLOCOCCI(A) 07/02/2024 10:56 PM EDT [facility] Gram Stain Result RARE YEAST 07/02/2024 10:56 PM EDT [facility] Culture MANY STAPHYLOCOCCUS AUREUS METHICILLIN RESISTANT(A) 07/04/2024 10:01 AM EDT [facility] Culture ALONG WITH MANY NORMAL ORAL JEET 07/04/2024 10:01 AM EDT [facility] Bronchoalveolar Lavage Structure of [...] Staphylococcus Aureus Doxycycline VARSHA METHOD <=0.5: Susceptible Comment:KOLTON ID [id number] Quintin Forman MD MICROBIOLOGY - GENERAL ORDERABLE S Final Result Performing Organization Address [facility]/ZIP Co de Phone Number [facility] [address] [place] [address], [address] [place] [address] * (ABNORMAL) Fungal culture includes fungal smear (07/02/2024 1:04 PM EDT) Fungal smear NO FUNGAL ELEMENTS SEEN ON DIRECT SMEAR 07/03/2024 9:25 AM EDT [facility] Culture MABLE ALBICANS(A) 07/07/2024 2:50 PM EDT [facility] Bronchoalveolar Lavage Structure of lower lobe of left lung / Unknown 07/02/2024 1:04 PM EDT Comment:Pre-op diagnosis: Mucus plug in respiratory tract [T17.998A] us Quintin Forman MD MICROBIOLOGY - GENERAL ORDERABLE S Final Result Performing Organization Address [facility] Co de Phone Number [facility] [address] [place] [address], [facility] [address] [place] [address] * Body Fluid cell count with differential (07/02/2024 1:04 PM EDT) Specimen type BRONCHOALVEOLAR LAVAGE 07/02/2024 5:17 PM EDT [facility] Comment: LEFT LUNG, LOWER LOBE Fluid neutrophils 18 % 025 7:26 PM EDT [facility] Fluid lymphocyte 3 % 07/03/19 25 7:26 PM EDT [facility] Macrophages 79 % 07/02/2024 7:26 PM EDT [facility] Nucleated cell ct 76 /uL 025 7:26 PM EDT [facility] Fluid RBC 220 /uL 07/02/2024 7:26 PM EDT [facility] Fluid color YELLOW 07/02/2024 7:26 PM EDT [facility] Fluid clarity HAZY 07/02/2024 7:26 PM EDT [facility] Body fluid comment Interpre tation-------- 07/03/2024 5:44 AM EDT [facility] Comment: Reference values for [...] STOOLS ORDERABLE S Edited Result - Final [facility] [address], [address] [place] [address] * Bronchoscopy Report (07/02/2024 11:54 AM EDT) Narrative SYSTEMGENERATED, DOCUMENTATION - 07/02/2024 11:54 AM EDT This order has been auto-finalized for image and report archival in PACs. *For full report details, please reach out to your physician. This image is visible to you in MyChart.* Quintin Forman MD IMG OR IMG ORDERABLES Final Resu lt * Ionized magnesium (07/02/2024 10:24 AM EDT) Only the most recent of7 resultswithin the time period is included. Magnesium, ionized 0.71 0.45 - 0.74 mmol/L 07/02/2024 10:49 AM EDT [facility] Comment:NEW REFERENCE RANGE PLASMA 07/02/2024 10:2 4 AM EDT 07/02/2024 10:39 AM EDT us Nathaly Cristina MD LAB BLOOD ORDERABLES Final Resu lt Performing Organization Address City/[facility]/ZIP Co de Phone Number [facility] [address], [address] [place] [address] * (ABNORMAL) Protime & INR (07/02/2024 10:24 AM EDT) Only the most recent of6 resultswithin the time period is included. Protime 13.5(H) 9.8 - 13.2 sec 07/02/2024 10:51 AM EDT [facility] Inr 1.2 0.9 - 1.2 07/02/2024 10:51 AM EDT [facility] PLASMA 07/02/2024 10:2 4 AM EDT 07/02/2024 10:40 AM EDT us Kvng Hayes MD LAB BLOOD ORDERABLES Final Result Performing Organization Address [facility]/ZIP Co de Phone Number [facility] [address] [place] [address] * Potassium (07/02/2024 10:24 AM EDT) Only the most recent of9 resultswithin the time period is included. Potassium, Bld 4.2 3.5 - 5.0 mmol/L 07/02/2024 11:12 AM EDT [facility] PLASMA 07/02/2024 10:2 4 AM EDT 07/02/2024 10:39 AM EDT us Nathaly Cristina MD LAB BLOOD ORDERABLES Final Resu lt Performing Organization Address City/[facility]/ZIP Co de Phone Number [facility] [address] [place] [address], [address] [place] [address] * (ABNORMAL) Ionized calcium (07/01/2024 2:50 PM EDT) Only the most recent of3 resultswithin the time period is included. Calcium, ionized 5.6(H) 4.5 - 5.3 mg/dL 07/01/2024 3:10 PM EDT [facility] PLASMA 07/01/2024 2:50 PM EDT 07/01/2024 3:02 PM EDT us Danny Grey MD LAB BLOOD ORDERABLES Fin al Result [facility] [address], [address] [place] [address] * Fluoroscopy swallow motility function (07/01/2024 11:05 [...] >500 per glucometer. (06/29/2024 9:49 PM EDT) Bedside glucose 95 65 - 99 mg/dL 06/29/2024 10:22 PM EDT [facility] Blood / Unknown 06/29/2024 9 :49 PM EDT 06/29/2024 10:22 PM EDT us Cristy Hampton MD POINT OF CARE TEST ORDERABLE S Final Result [facility] * (ABNORMAL) Blood gas, venous (06/29/2024 8:56 PM EDT) Sample Type VENOUS 06/29/2024 9:01 PM EDT [facility] Body Temp 37.0 37.0 C 06/29/2024 9:01 PM EDT [facility] pH, Venous 7.230(L) 7.320 - 7.420 06/29/2024 9:01 PM EDT [facility] PCO2, Venous 58.6(H) 35 - 50 MMHG 06/29/2024 9:01 PM EDT [facility] PO2, Venous 35 30 - 50 MMHG 06/29/2024 9:01 PM EDT [facility] Base,Deficit 3.0(H) 0.0 - 2.0 MMOL/L 06/29/2024 9:01 PM EDT [facility] Portable HCO3 24.5(H) 20.0 - 24.0 MMOL/L 06/29/2024 9:01 PM EDT [facility] % O2 Sat 54.0(L) >80.0 % 06/29/2024 9:01 PM EDT [facility] Jagdeep's Test NA 06/29/2024 9:01 PM EDT [facility] SPO2 99 % 06/29/2024 9:01 PM EDT [facility] Sample Site N/A 06/29/2024 9:01 PM EDT [facility] Insp. O2 Conc. 4 % 06/29/2024 9:01 PM EDT [facility] Oxygen Source NC 06/29/2024 9:01 PM EDT [facility] Blood / Unknown 06/29/2024 8 :56 PM EDT 06/29/2024 9:01 PM EDT us Cristy Hampton MD LAB BLOOD ORDERABLES Final R esult Performing Organization Address City/[facility] Co de Phone Number [facility] [address] [place] [address] * Hepatitis B core antibody, IgM (06/27/2024 9:47 AM EDT) Hep B Core IgM Ab Non-Reacti ve Non-Reacti ve^Non-[place]m [place]ott ctive 06/27/2024 11:44 AM EDT [facility] Comment:NEW TEST METHOD Serum / Unknown 06/27/2024 9 :47 AM EDT 06/27/2024 10:02 AM EDT us Katarina Trotter MD LAB BLOOD ORDERABLES Final Result Performing Organization Address City/[facility]/ZIP Co de Phone Number [facility] [address] [place] [address] * Hemodialysis inpatient (06/25/2024 4:00 PM EDT) Edith Reynoso RN - 06/25/2024 4:00 PM EDT Edith [...] MAR. - Edith Dhillon RN, Dialysis 06/25/24 us Katarina Trotter MD DIALYSIS ORDERABLES Edited Result - Final * (ABNORMAL) Hemoglobin and hematocrit, blood (06/23/2024 8:42 AM EDT) Only the most recent of9 resultswithin the time period is included. Hemoglobin 7.6(L) 11.7 - 15.5 g/dL 06/23/2024 9:10 AM EDT [facility] Hematocrit 23.3(L) 35 - 47 % 06/23/2024 9:10 AM EDT [facility] Blood / Unknown 06/23/2024 8 :42 AM EDT 06/23/2024 8:58 AM EDT us Filomena Newman MD LAB BLOOD ORDERABLES Final R esult [facility] [address] [place] [address] * Transfuse RBC:1 Unit (06/22/2024 4:51 AM EDT) Nathaly Cristina MD BLOOD TRANSFUSION ORDERABLES Fi [...] of Units: 1 (06/21/2024 10:00 AM EDT) Blood component type [id number] BLOOD BANK - BURAKSparxent Unit number [id number] BL OOD BANK - LISA Unit ABO A BLOOD BANK - LISA Unit RH POS BLOOD BANK - People PowerJOAQUIN Crossmatch Compatible BLOOD BA NK - LISA Status of unit TRANSFUSED BLOO D BANK - LISA Expiration Date [id number] BLOOD BANK - [employer] BB Type Barcode [id number] BLOOD BANK - LISA Blood 06/21/2024 10:0 0 AM EDT us Nathaly Cristina MD BLOOD BANK PRODUCT ORDERABLES E dited Result - Final BLOOD BANK - [employer] * Type and screen(includes indirect chito) (06/21/2024 10:00 AM EDT) ABO A 06/21/2024 12:21 PM EDT [facility] RH Positive 06/21/2024 12:21 PM EDT [facility] Antibody Screen Negative 06/21/2024 12:21 PM EDT [facility] 06/21/2024 10:0 0 AM EDT us Filomena Newman MD BLOOD BANK TEST ORDERABLES E dited Result - Final [facility] [address] [place] [address], [place] * Ultrafiltration inpatient (06/20/2024 5:19 PM [...] Lactate w/ Reflex (06/20/2024 8:58 AM EDT) Lactate w/ Reflex 1.4 0.4 - 2.0 mmol/L 06/20/2024 9:57 AM EDT [facility] Comment: Result did not trigger repeat Lactate, re-order if needed. PLASMA 06/20/2024 8:58 AM EDT 06/20/2024 9:14 AM EDT us Filomena Newman MD LAB BLOOD ORDERABLES Final R esult [facility] [address] [place] [address] * Ultrafiltration inpatient (06/19/2024 2:06 PM EDT) Narrative Emely Abarca, RAMONITA - 06/19/2024 2:06 PM EDT Emely Abarca [...] 8:20 AM EDT) Only the most recent of5 resultswithin the time period is included. aPTT 31 26 - 37 sec 06/18/2024 8:54 AM EDT [facility] PLASMA 06/18/2024 8:20 AM EDT 06/18/2024 8:38 AM EDT Patrick Mustafa MD LAB BLOOD ORDERABLES Final Result [facility] [address], [address] [place] [address] * (ABNORMAL) Liver panel (06/18/2024 3:10 AM EDT) Only the most recent of4 resultswithin the time period is included. Alkaline phosphatase 78 39 - 130 U/L 06/18/2024 3:54 AM EDT [facility] AST 15 0 - 41 U/L 06/18/2024 3:54 AM EDT [facility] ALT 3 0 - 31 U/L 06/18/2024 3:54 AM EDT [facility] Total Bilirubin 1.2 0.3 - 1.2 mg/dL 06/18/2024 3:54 AM EDT [facility] Bilirubin, direct 0.7(H) 0.0 - 0.4 mg/dL 06/18/2024 3:54 AM EDT [facility] Albumin 2.8(L) 3.2 - 5.3 g/dL 06/18/2024 3:54 AM EDT [facility] Total Protein 5.5(L) 6.0 - 8.0 g/dL 06/18/2024 3:54 AM EDT [facility] PLASMA 06/18/2024 3:10 AM EDT 06/18/2024 3:23 AM EDT Patrick Mustafa MD LAB BLOOD ORDERABLES Final Result [facility] [address], [address] [place] [address] * X-ray abdomen NG Tube placement 1 [...] 4:54 PM EDT) Only the most recent of6 resultswithin the time period is included. Sodium 141 134 - 146 mmol/L 06/17/2024 6:00 PM EDT [facility] Potassium, Bld 4.1 3.5 - 5.0 mmol/L 06/17/2024 6:00 PM EDT [facility] Chloride 106 98 - 109 mmol/L 06/17/2024 6:00 PM EDT [facility] CO2 25 22 - 32 mmol/L 06/17/2024 6:00 PM EDT [facility] Anion gap 10 5 - 15 mmol/L 06/17/2024 6:00 PM EDT [facility] PLASMA 06/17/2024 4:54 PM EDT 06/17/2024 5:21 PM EDT us Katarina Trotter MD LAB BLOOD ORDERABLES Final Result [facility] [address], [address] [place] [address] * Vancomycin, random (06/17/2024 2:00 AM EDT) Only the most recent of2 resultswithin the time period is included. Vancomycin 15.8 5.0 - 40.0 ug/mL 06/17/2024 2:42 AM EDT [facility] Comment: Peak 30-40 ug/mL Trough 5-20 ug/ml PLASMA 06/17/2024 2:00 AM EDT 06/17/2024 2:15 AM EDT us Nathaly Cristina MD LAB BLOOD ORDERABLES Final Resu lt [facility] [address], [address] [place] [address] from Last 3 Months
--- OUTSIDE RECORDS SUMMARY | 2024-09-16 21:23 | XMS_ITS | Encounter Summary ---
Author Organization [facility] Address [address] [place] [address] Care Team Providers Care Asbestos Worker Helper Name Role Phone Curly Fitch DO, Charles P Primary Care Provider + Source Comments In the event this information is protected by the Federal Confidentiality of Alcohol and Drug AbusePatient Records regulations: The Federal rules restrict any use of the information to criminally investigate or prosecute any alcohol or drug abuse patient.[facility] Encounter Details Date Type Department Care Team [...] on filedocumented in this encounter Care Teams Asbestos Worker Helper Relationship Specialty Start Date End Date Segundo Rawls Sr., DO PCP - General Family Medicine 04/18/18 documented as of this encounter
--- OUTSIDE RECORDS SUMMARY | 2024-09-16 21:23 | XMS_ITS | Patient Health Record ---
Author Organization [facility] Address [address] [place] [address] Care Team Providers Care Collector Name Role Phone Rogelio BLAIR, Salvador Primary Care Provider Ervin Patel Unavailable [phone] Results Component Value Reference Range Notes Occult Blood* Reviewed date:04/28/2024 02:48:05 PM Interpretation: Performing Lab: Notes/Report: [facility] , Occult Blood Positive Performing Lab: see note ML - [facility] LB XR chest 2V Reviewed date:04/28/2024 02:48:05 PM Interpretation: Performing Lab: Notes/Report: Source Facility: [place] [address] [place] [address] XRay Report Signed Patient: JUANITA REDMAN MR#: [id number] : 1965 Acct:[id number] Age/Sex: 59 / F ADM Date: 04/21/24 Loc: MS 218-[address]: Dea Saavedra M.D. Ordering Physician: Dea Saavedra M.D. Date of Service: 04/27/24 Procedure(s): XR chest 2V Accession Number(s): [id number] cc: VIGNESH ALVARADO Douglas M.D. [place] [id number] Patient Name: JUANITA REDMAN MRN: [id number] date: 1965 Sex: F Assigned Patient Location: [place] Current Patient Location: [place] Accession/Order Number: [id number] Exam Date: 04/27/2024 13:00 Report Date: 04/27/2024 [...] Signed By: 04/27/24 1431 DD/ 1428 TD/TT: Engine Cleaner: [place] [address] XRay Report Signed Patient: VAISHALI REDMAN MR#: [id number] : 1965 Acct:[id number] Age/Sex: 59 / F ADM Date: 04/21/24 Loc: MS 218-[address]: Parish Saavedra M.D. Ordering Physician: Dea Saavedra M.D. Date of Service: 04/27/24 Procedure(s): XR pedro st 2V Accession Number(s): [id number] cc: VIGNESH ALVARADO Douglas M.D. [place] [address] Patient Name: JUANITA REDMAN MRN: [id number] date: 1965 Sex: F Assigned Patient Location: [place] Current Patient Location: [place] Accession/Order Numb er: [id number] Exam Date: 04/27/2024 13:00 Report Date: 04/27/2024 [...] Signed By: 04/27/24 1431 DD/ 1428 TD/TT: Engine Cleaner: BNP Reviewed date:04/28/2024 02:48:05 PM Interpretation: Performing Lab: Notes/Report: [facility] , NT Pro B Type Natriuretic Pept >63681.0 <=900.0 pg/mL RESULTS CALLED TO HOLLAND TERESA RN ON [employer] BY Jazz Vela at 0715 Performing Lab: see note ML - [facility] LB MAGNESIUM Reviewed date:04/28/2024 02:48:05 PM Interpretation: Performing Lab: Notes/Report: [facility] , Magnesium 1.3 1.8-2.4 mg/dL Performing Lab: see note ML - [facility] LB AMMONIA Reviewed date:06/13/2024 09:09:42 PM Interpretation: Performing Lab: Notes/Report: [facility] , Ammonia 59 11-32 umol/L RESULTS CALLED TO efra brink rn @BY Delmi Quiles at 1113 Performing Lab: see note ML - [facility] LB AMYLASE Reviewed date:06/13/2024 09:09:42 PM Interpretation: Performing Lab: Notes/Report: [facility] , Amylase 39 25-115 U/L Performing Lab: see note ML - [facility] LB BLOOD GASES BTY Reviewed date:06/13/2024 09:09:42 PM Interpretation: Performing Lab: Notes/Report: [facility] , pH ABG 7.138 7.350-7.450 RESULTS CALLED TO EFRA FUCHS,RN ABG PCO2 57.5 35.0-45.0 mmHg RESULTS CRAIG D TO EFRA BRINK,RAMONITA PO2 ABG 80.5 80.0-100.0 mmHg HCO3 ABG 19.5 22.0-26.0 mmol/L Base Excess ABG -9.6 -2.0-2.0 mmol/L Oxygen Saturation ABG 95.1 Jagdeep Test POSITIVE POSITIVE O2 Mode NC Liters per Minute 3 Puncture Site RR Performing Lab: see note ML - [facility] LB INFLUENZA A AND B AG Reviewed date:06/13/2024 09:09:42 PM Interpretation: Performing Lab: Notes/Report: [facility] , Influenza Virus A Antigen Negative below [...] Performing Lab: see note ML - [facility] LB LACTATE or LACTIC ACID Reviewed date:06/13/2024 09:09:42 PM Interpretation: Performing Lab: Notes/Report: [facility] , Lactate/Lactic Acid 1.1 0.4-2.0 mmol/L Performing Lab: see note ML - [facility] LB LIPASE Reviewed date:06/13/2024 09:09:42 PM Interpretation: Performing Lab: Notes/Report: [facility] , Lipase 36.0 16.0-77.0 U/L Performing Lab: see note ML - [facility] LB RSV Reviewed date:06/13/2024 09:09:42 PM Interpretation: Performing Lab: Notes/Report: [facility] , Respiratory Syncytial Virus Not Detected NOT DETECTE Performing Lab: see note ML - [facility] LB Troponin I High Sensitivity Reviewed date:06/13/2024 09:09:42 PM Interpretation: Performing Lab: Notes/Report: [facility] , Troponin I High Sensitivity 77.7 4.0-51.3 pg/mL 1114 UNIVERSAL DEFINITION OF MYOCARDIAL INFARCTION. THE UPPER HAS BEEN CONFIRMED THE DECISION THRESHOLD FOR CO 99TH PERCENTILE = 51.4 PG/ML WITH OTHER [...] Performing Lab: see note ML - [facility] SARS-CoV-2 Ag* Reviewed date:06/13/2024 09:09:42 PM Interpretation: Performing Lab: Notes/Report: [facility] , SARS-CoV-2 Ag NEGATIVE NEGATIVE (EUA) for [...] Performing Lab: see note ML - [facility] LB Troponin I High Sensitivity Reviewed date:06/13/2024 09:09:42 PM Interpretation: Performing Lab: Notes/Report: [facility] , Troponin I High Sensitivity 78.0 4.0-51.3 pg/mL NOTE: HIGH-SENSITIVITY TROPONIN ASSAY IS NOT INTENDED TO BE CUT-OFF POINTS HAVE BEEN ESTABLISHED BASED ON THE FOURTH REFERENCE LIMIT (URL) OF TROPONIN, DEFINED THE 99TH WITH OTHER DIAGNOSTIC AND CLINICAL INFORMATION. 99TH PERCENTILE = 51.4 PG/ML UNIVERSAL DEFINITION OF MYOCARDIAL INFARCTION. THE UPPER HAS BEEN CONFIRMED THE DECISION THRESHOLD FOR CO USED IN ISOLATION BUT SHOULD BE INTERPRETED IN CONJUNCTION DIAGNOSIS. RESULTS CALLED TO EFRA BRINK RN PERCENTILE OF cTnI DISTRIBUTION IN A REFERENCE POPULATION, Performing Lab: see note ML - [facility] LB Venous Blood Gas Reviewed date:06/13/2024 09:09:42 PM Interpretation: Performing Lab: Notes/Report: [facility] , pH VBG 7.172 7.330-7.430 PCO2 VBG 51.2 40.0-52.0 mmHg Performing Lab: see note ML - [facility] LB TSH Reviewed date:06/13/2024 09:09:42 PM Interpretation: Performing Lab: Notes/Report: [facility] , Thyroid Stimulating Hormone 13.271 0.358-3.740 uIU/mL Performing Lab: see note ML - [facility] LB T4 Reviewed date:06/13/2024 09:09:42 PM Interpretation: Performing Lab: Notes/Report: [facility] , T4 Thyroxine 2.20 4.80-13.90 ug/dL Performing Lab: see note ML - [facility] LB MAGNESIUM Reviewed date:06/13/2024 09:09:42 PM Interpretation: Performing Lab: Notes/Report: [facility] , Magnesium 1.0 1.8-2.4 mg/dL Performing Lab: see note ML - [facility] LB MAGNESIUM Reviewed date:04/28/2024 02:48:05 PM Interpretation: Performing Lab: Notes/Report: [facility] , Magnesium 2.4 1.8-2.4 mg/dL Performing Lab: see note ML - [facility] LB CBC no Diff (Hemogram) Reviewed date:04/28/2024 02:48:05 PM Interpretation: Performing Lab: Notes/Report: [facility] , White Blood Count 9.6 4.0-11.0 10 [...] fL Performing Lab: see note ML - [facility] LB US venous doppler UE RT Reviewed date:04/28/2024 02:48:05 PM Interpretation: Performing Lab: Notes/Report: Source Facility: [place] [address] Ultrasound Report Signed Patient: JUANITA REDMAN MR#: [id number] : 1965 Acct:[id number] Age/Sex: 59 / F ADM Date: 04/21/24 Loc: MS 218-[address]: Dea Saavedra M.D. Ordering Physician: Dea Saavedra M.D. Date of Service: 04/27/24 Procedure(s): US venous doppler UE RT Accession Number(s): [id number] cc: VIGNESH ALVARADO Douglas M.D. [place] [address] Patient Name: JUANITA REDMAN MRN: [id number] date: 1965 Sex: F Assigned Patient Location: [place] Current Patient Location: [place] Accession/Order Number: [id number] Exam Date: 04/27/2024 11:42 Report Date: 04/27/2024 [...] Signed By: 04/27/24 1310 DD/ 1307 TD/TT: Engine Cleaner: [place] [address] Ultrasound Report Signed Patient: VAISHALI REDMAN MR#: [id number] : 1965 Acct:[id number] Age/Sex: 59 / F ADM Date: 04/21/24 Loc: MS 218-[address]: Parish Saavedra M.D. Ordering Physician: Dea Saavedra M.D. Date of Service: 04/27/24 Procedure(s): US mikey ous doppler UE RT Accession Number(s): [id number] cc: MARIA DE JESUS ALVARADO; Dea Saavedra M.D. [place] [address] Patient Name: JUANITA REDMAN MRN: [id number] date: 1965 Sex: F Assigned Patient Location: MS Current Patient Location: MS Accession/Order Numb er: [id number] Exam Date: 04/27/2024 11:42 Report Date: 04/27/2024 [...] Signed By: 04/27/24 1310 DD/ 1307 TD/TT: Engine Cleaner: SUSHANT ann Reviewed date:06/13/2024 09:09:42 PM Interpretation: Performing Lab: Notes/Report: Source Facility: [facility] [place] [address] Cardiology Report Signed Patient: JUANITA REDMAN MR#: [id number] : 1965 Acct:[id number] Age/Sex: 59 / F ADM Date: 06/12/24 Loc: ICU 272-[address]: Dea Saavedra M.D. Ordering Physician: Dea Saavedra M.D. Date of Service: 06/13/24 Procedure(s): CA echo limited Accession Number(s): [id number] cc: Dea Saavedra M.D.; TAMMY WANG Patient Name: JUANITA REDMAN MR#: [id number] : 1965 Exam Date: 06/13/2024 Ordering Doctor: DR Dea Saavedra . ECHOCARDIOGRAM REPORT PROCEDURE: SUSHANT ECHO LIMITED INDICATIONS: Dyspnea, elevated BNP (>87931), heart failure with preserved ejection fraction, chronic [...] Signed By: 06/13/24 1519 DD/ 1518 TD/TT: Engine Cleaner: [place] [address] Cardiology Report Signed Patient: VAISHALI REDMAN MR#: [id number] : 1965 Acct:[id number] Age/Sex: 59 / F ADM Date: 06/12/24 Loc: ICU 272-[address]: Parish Saavedra M.D. Ordering Physician: Dea Saavedra M.D. Date of Service: 06/13/24 Procedure(s): CA ech o limited Accession Number(s): [id number] cc: Dea Saavedra M.D. ; TAMMY WANG Patient Name: JUANITA REDMAN MR#: [id number] : 1965 Exam Date: 06/13/2024 Ordering Doctor: DR Dea Saavedra . ECHOCARDIOGRAM REPORT PROCEDURE: CA ECHO LIMITED INDICATIONS: Dyspnea , elevated BNP (>19173), heart failure with preserved ejection fraction, chronic kidney disease, COPD COMPARISON: None. DESCRIPTION: Limite d ECHOCARDIOGRAM Real-time transthoracic echocardiography wit h 2D [...] Signed By: 06/13/24 1519 DD/ 1518 TD/TT: Engine Cleaner: BLOOD GASES BTY Reviewed date:06/13/2024 09:09:42 PM Interpretation: Performing Lab: Notes/Report: [facility] , pH ABG 7.181 7.350-7.450 RESULTS CALLED [...] 9.3 Performing Lab: see note ML - [facility] LB Reason For Referral No Information Problems Problem Type SNOMED Code ICD Code Onset Dates Problem Status W/U Status Risk Notes Problem Hypomagnesemia (336254649) Hypomagnesemia (E83.42) Active confirmed Problem Hypocalcemia (7095534) Hypocalcemia (E83.51) Active confirmed Problem Hepatorenal syndrome (13281489) Hepatorenal syndrome (K76.7) Active confirmed Problem End stage renal disease (02537498) End stage renal disease (N18.6) Active confirmed Problem Weakness (66255534) Weakness (R53.1) Active confirmed Problem Atrial fibrillation (01080054) Atrial fibrillation (I48.91) Active confirmed Problem Hypothyroidism (94533662) Hypothyroidism (E03.9) Active confirmed Problem Atrial fibrillation (80063732) Paroxysmal a-fib (I48.0) Active confirmed Problem Essential hypertension (15838608) Benign essential HTN (I10) Active confirmed Problem Congestive heart failure (26358544) CHF (congestive heart failure) (I50.9) Active confirmed Problem Hypoalbuminemia (017449248) Hypoalbuminemia (E88.09) Active confirmed Problem Mixed anxiety and depressive disorder (969418474) Anxiety and depression (F41.9) Active confirmed Problem Alcohol withdrawal delirium (9069086) Alcohol withdrawal delirium (F10.231) Active confirmed Problem Metabolic encephalopathy (10682493) Acute metabolic encephalopathy (G93.41) Active confirmed Problem Heart failure (36003237) Acute on chronic heart failure, unspecified heart failure type (I50.9) Active confirmed Problem Pulmonary hypertension (81781673) Pulmonary hypertension (I27.20) Active confirmed Problem Chronic diastolic heart failure (600791245) Chronic heart failure with preserved ejection fraction (I50.32) Active confirmed Encounters Encounter Location Date Provider Diagnosis [facility] [address] [place] [address] 08/14/2024 Ervin Aguilar Plan Of Treatment No Information Insurance Providers Payer Name Payer Address Payer Phone Subscriber Number Group Number Insured Name Patient Relationship to Insured Coverage Start Date Coverage End Date [employer] [place] [employer] [address] [facility] [facility] [address] [place] [address] [id number] Juanita Redman Self - patient is the insured
--- OUTSIDE RECORDS SUMMARY | 2024-09-16 21:23 | XMS_ITS | Encounter Summary ---
Author Organization [facility] Address [id number] [address] [place] [address] Care Team Providers Care Shell Machine Operator Name Role Phone Taylor CornersAlana olson Mely CRAB FISHERMAN-DIGITAL CONTENT SPECIALIST Primary Care Provider Encounter Details Date Type Department Care Team (Late st Contact Info) Description 06/14/2024 Orders Only [facility] [address] [place] [phone] Transcribe, Orders Support User Pain (Primary [...] on file documented as of this encounter Results * [...] Primary Generalized pain documented in this encounter Care Teams Shell Machine Operator Relationship Specialty Start Date End Date Alana Miller, CRAB FISHERMAN-DIGITAL CONTENT SPECIALIST [address] [place] [address] PCP - General Nurse Practitioner 09/12/24 documented as of this encounter
--- OUTSIDE RECORDS SUMMARY | 2024-09-16 21:23 | XMS_ITS | Referral Summary ---
Author Organization [facility] Address [address] [place] [address] Care Team Providers Care Wheel Roller Name Role Phone Unavailable Primary Care Provider Unavailabl e Social History Tobacco Use Types Packs/Day Years Used Date Smoking Tobacco: Never Assessed Sex and Gender Information Value Date Recorded Sex Assigned at Not on file Gender Identity Not on file Sexual Orientation Not on file Plan of Treatment Not on file
--- OUTSIDE RECORDS SUMMARY | 2024-09-16 21:23 | XMS_ITS | Clinical Summary ---
Author Organization [facility] Address [address] [place] [address] Care Team Providers Care Snuff Blender Name Role Phone Unavailable Primary Care Provider [...]
--- OUTSIDE RECORDS SUMMARY | 2024-09-16 21:23 | XMS_ITS | Encounter Summary ---
Author Organization [facility] Address [address] [place] [address] Care Team Providers Care Litigator Name Role Phone Katie Velasquez CRIMINALIST TECHNICIAN Primary Care Provider Encounter Details Date Type Department Care Team (Late st Contact Info) Description 07/18/2024 Abstract [facility] [address] [place] [address] Unallocated, Noms Provider, [address] [place], [place] [phone] Social History Tobacco Use Types Packs/Day Years [...] on filedocumented in this encounter Care Teams Litigator Relationship Specialty Start Date End Date Katie Velasquez NP [address] [facility] [place] [address] [place] [address] PCP - General Family Medicine 01/16/24 documented as of this encounter
--- OUTSIDE RECORDS SUMMARY | 2024-09-16 21:23 | XMS_ITS | Encounter Summary ---
Author Organization [facility] Address [id number] [address] [place] [address] Care Team Providers Care Creasing And Cutting Press Feeder Name Role Phone Alana Miller WIND FARM ELECTRICAL SYSTEMS DESIGNER-TEACHER ASSISTANT Primary Care Provider Encounter Details Date Type Department Care Team (Latest Contact Info) Description 09/12/2024 Travel Social History Tobacco Use Types Packs/Day Years [...] on file documented as of this encounter Goals Goal Patient Goal Type Associated Problems Recent Progress Patient-Stated? Author <enter goal here> General Yes Mattie Mccarthy, RN Note: Evaluation of progress towards goal: Progress towards discharge documented as of this encounter Visit Diagnoses Not on filedocumented in this encounter Care Teams Creasing And Cutting Press Feeder Relationship Specialty Start Date End Date Alana Miller, WIND FARM ELECTRICAL SYSTEMS DESIGNER-TEACHER ASSISTANT [address] [place] [address] PCP - General Nurse Practitioner 09/12/24 documented as of this encounter
--- OUTSIDE RECORDS SUMMARY | 2024-09-16 21:24 | XMS_ITS | Clinical Summary ---
Author Organization [facility] Address [address] [place] [address] Care Team Providers Care Crime Scene Analyst Name Role Phone Katie Velasquez MATRIX BATH OPERATOR Primary Care Provider Medications LORazepam (Ativan) 1 MG tabletIndication s:Anxiety about treatment Take 1 tablet (1 mg) by mouth Daily Give daily before HD on dialysis days 30 tablet 5 Active LORazepam (Ativan) 0.5 MG tabletIndication s:Anxiety disorder, unspecified type Take 1 tablet (0.5 mg) by mouth every 8 (eight) hours if needed for anxiety for up to 14 days 42 tablet 5 Active HYDROcodone-acet aminophen ([place]) 5-325 MG tabletIndication s:Pain Take 1 tablet by mouth every 6 (six) hours if needed for severe pain 120 tablet 5 10/10/19 25 Active Encounters Date Type Department Care Team Description 09/09/2024 Telephone [facility] [address] [facility] [address] [place] [phone] Fatimah Andres, [place] 08/28/2024 Clinisync Result Encounter [facility] External Department Unsolicited Fatimah Andres, [place] 08/26/2024 Telephone [facility] [address] [place] [phone] Fatimah Andres, [place] 08/16/2024 Telephone [facility] [address] [place] [phone] Fatimah Andres, [place] 07/26/2024 Telephone [facility] [address] [place] [phone] Fatimah Andres, [place] 07/18/2024 Abstract [facility] [address] [place] [address] Unallocated, Anita Armstrong MD from Last 3 Months Social History Tobacco Use Types Packs/Day Years Used Date Smoking Tobacco: Never Assessed Comments Unknown Sex and Gender Information Value Date Recorded Sex Assigned at Not on file Legal Sex Female 7:05 PM EDT Gender Identity Not on file Sexual Orientation Not on file Plan of Treatment Not on file Procedures Procedure Name Priority Date/Time Associated Diagnosis Comments ALL HEMOGLOBIN Routine 08/28/2024 7:36 PM EDT from Last 3 Months Results * (ABNORMAL) ALL HEMOGLOBIN (08/28/2024 7:36 PM EDT) [facility] HGB 6.9(LL) 12.0 - 16.0 g/dL [facility] Comment: RESULTS CALLED TO [facility] @BY Cristela Ewing at 210 08/28/2024 7:36 PM EDT 08/28/2024 8:55 PM EDT Narrative [facility] - 08/28/2024 9:07 PM EDT us Fatimah Andres NP [facility] Final Result [facility] from Last 3 Months Insurance [facility] Care Teams Crime Scene Analyst Relationship Specialty Start Date End Date Katie Velasquez NP [address] [place] [address] PCP - General Family Medicine 01/16/24
--- OUTSIDE RECORDS SUMMARY | 2024-09-16 21:24 | XMS_ITS | Encounter Summary ---
Author Organization [facility] Address [address] [place] [address] Care Team Providers Care Slot Shift Manager Name Role Phone Katie Velasquez NP Primary Care Provider Encounter Details Date Type Department Care Team (Late st Contact Info) Description 09/09/2024 Telephone [facility] [address] [facility] [address] [place] [phone] Fatimah Andres NP [address] [facility] [address] [place], [place] [phone] Social History Tobacco Use Types Packs/Day Years Used Date Smoking Tobacco: Never Assessed Comments Unknown Sex and Gender Information Value Date Recorded Sex Assigned at Not on file Legal Sex Female 7:05 PM EDT Gender Identity Not on file Sexual Orientation Not on file documented as of this encounter Miscellaneous Notes * Telephone Encounter - Fatimah Andres NP - 09/09/2024 3:28 PM EDT Requested Prescriptions Signed Prescriptions Disp Refills HYDROcodone-acetaminophen ([place]) 5-325 MG tablet 120 tablet 0 Sig: Take 1 tablet by mouth every 6 (six) hours if needed for severe pain Authorizing Provider: FATIMAH ANDRES documented in this encounter Plan of Treatment Not on file documented as of this encounter Visit Diagnoses Diagnosis Pain- Primary Generalized pain documented in this encounter Care Teams Slot Shift Manager Relationship Specialty Start Date End Date Katie Velasquez NP [address] [facility] [address] [place] [address] PCP - General Family Medicine 01/16/24 documented as of this encounter
--- OUTSIDE RECORDS SUMMARY | 2024-09-16 21:24 | XMS_ITS | Patient Health Record ---
Author Organization [facility] Address [address] [address] [place] [address] Care Team Providers Care Athletics Director Name Role Phone NISSA RAFAEL Unavailable [phone] EKATERINA ROSALES Unavailable [phone] SANJANA DOUGHERTY Unavailable [phone] Reason For Referral No Information Problems Problem Type SNOMED Code ICD Code Onset Dates Problem Status W/U Status Risk Notes Problem Chronic respiratory failure (61831478) Chronic respiratory failure with hypercapnia (J96.12) Active confirmed Problem Pulmonary hypertension (05473439) Pulmonary hypertension, unspecified (I27.20) Active confirmed Problem Ljhwy-jc-wwzbdre hypercapnic respiratory failure (disorder) (5398274810008) Acute on chronic respiratory failure with hypercapnia (J96.22) Active confirmed Problem Congestive heart failure (68225807) Congestive heart failure (I50.9) Active confirmed Problem Chronic respiratory failure (62653785) Chronic hypoxic respiratory failure (J96.11) Active confirmed Problem Fedaa-kw-tygwjdp hypoxemic respiratory failure (disorder) (413573630107660 00) Acute on chronic hypoxic respiratory failure (J96.21) Active confirmed Encounters Encounter Location Date Provider Diagnosis [address] [id number] 07/04/2024 EKATERINA ROSALES Respiratory failur e, unspecified, unspecified whether with hypoxia or hypercapnia J96.90 and Pulmonary hypertension, unspecified I27.[address] [id number] 07/06/2024 RAFAEL AZAR Respiratory failur e, unspecified, unspecified whether with hypoxia or hypercapnia J96.90 and Pulmonary hypertension, unspecified I27.[address] [id number] 07/09/2024 RAFAEL AZAR Respiratory failur e, unspecified, unspecified whether with hypoxia or hypercapnia J96.90 and Pulmonary hypertension, unspecified I27.20 [place] [address] [id number] 07/11/2024 SANJANA DOUGHERTY Respiratory failur e, unspecified, unspecified whether with hypoxia or hypercapnia J96.90 and Pulmonary hypertension, unspecified I27.20 [place] [address] [id number] 07/13/2024 RAFAEL AZAR Respiratory failur e, unspecified, unspecified whether with hypoxia or hypercapnia J96.90 and Pulmonary hypertension, unspecified I27.20 [place] [address] [id number] 07/16/2024 EKATERINA ROSALES Respiratory failur e, unspecified, unspecified whether with hypoxia or hypercapnia J96.90 and Pulmonary hypertension, unspecified I27.20 [place] [address] [id number] 07/18/2024 EKATERINA ROSALES Respiratory failur e, unspecified, unspecified whether with hypoxia or hypercapnia J96.90 and Pulmonary hypertension, unspecified I27.20 [place] [address] [id number] 07/20/2024 RAFAEL AZAR Respiratory failur e, unspecified, unspecified whether with hypoxia or hypercapnia J96.90 and Pulmonary hypertension, unspecified I27.20 [place] [address] [id number] 07/23/2024 EKATERINA ROSALES Acute on chronic hypoxic respiratory failure J96.21 ; Acute on chronic respiratory failure with hypercapnia J96.22 ; Pulmonary hypertension, unspecified I27.20 and Congestive heart failure I50.9 [place] [address] [id number] 07/25/2024 EKATERINA ROSALES Acute on chronic hypoxic respiratory failure J96.21 ; Acute on chronic respiratory failure with hypercapnia J96.22 ; Pulmonary hypertension, unspecified I27.20 and Congestive heart failure I50.9 [place] [address] [id number] 07/27/2024 RAFAEL AZAR Acute on chronic hypoxic respiratory failure J96.21 ; Acute on chronic respiratory failure with hypercapnia J96.22 ; Pulmonary hypertension, unspecified I27.20 and Congestive heart failure I50.9 [place] [address] [id number] 07/30/2024 KELCEE ROSALES Acute on chronic hypoxic respiratory failure J96.21 ; Acute on chronic respiratory failure with hypercapnia J96.22 ; Pulmonary hypertension, unspecified I27.20 and Congestive heart failure I50.9 [place] [address] [id number] 08/01/2024 KELCEE ROSALES Acute on chronic hypoxic respiratory failure J96.21 ; Acute on chronic respiratory failure with hypercapnia J96.22 ; Pulmonary hypertension, unspecified I27.20 and Congestive heart failure I50.9 [place] [address] [id number] 08/03/2024 KELCEE ROSALES Acute on chronic hypoxic respiratory failure J96.21 ; Acute on chronic respiratory failure with hypercapnia J96.22 ; Pulmonary hypertension, unspecified I27.20 and Congestive heart failure I50.9 [place] [address] [id number] 08/06/2024 KELCEE ROSALES Acute on chronic hypoxic respiratory failure J96.21 ; Acute on chronic respiratory failure with hypercapnia J96.22 ; Pulmonary hypertension, unspecified I27.20 and Congestive heart failure I50.9 [place] [address] [id number] 08/08/2024 KELCEE ROSALES Acute on chronic hypoxic respiratory failure J96.21 ; Acute on chronic respiratory failure with hypercapnia J96.22 ; Pulmonary hypertension, unspecified I27.20 and Congestive heart failure I50.9 [place] [address] [id number] 08/10/2024 KELCEE ROSALES Acute on chronic hypoxic respiratory failure J96.21 ; Acute on chronic respiratory failure with hypercapnia J96.22 ; Pulmonary hypertension, unspecified I27.20 and Congestive heart failure I50.9 [place] [address] [id number] 08/17/2024 RAFAEL AZAR Acute on chronic hypoxic respiratory failure J96.21 ; Acute on chronic respiratory failure with hypercapnia J96.22 ; Pulmonary hypertension, unspecified I27.20 and Congestive heart failure I50.9 [place] [address] [id number] 08/24/2024 RAFAEL AZAR Acute on chronic hypoxic respiratory failure J96.21 ; Acute on chronic respiratory failure with hypercapnia J96.22 ; Pulmonary hypertension, unspecified I27.20 and Congestive heart failure I50.[address] [id number] 09/02/2024 RAFAEL AZAR Acute on chronic hypoxic respiratory failure J96.21 ; Acute on chronic respiratory failure with hypercapnia J96.22 ; Pulmonary hypertension, unspecified I27.20 and Congestive heart failure I50.[address] [id number] 09/05/2024 [facility] Acute on chronic hypoxic respiratory failure J96.21 ; Acute on chronic respiratory failure with hypercapnia J96.22 ; Pulmonary hypertension, unspecified I27.20 and Congestive heart failure I50.[address] [id number] 09/08/2024 RAFAEL NISSA Acute on chronic hypoxic respiratory failure J96.21 ; Acute on chronic respiratory failure with hypercapnia J96.22 ; Pulmonary hypertension, unspecified I27.20 and Congestive heart failure I50.[address] [id number] 09/10/2024 [facility] Chronic hypoxic respiratory failure J96.11 ; Chronic respiratory failure with hypercapnia J96.12 ; Pulmonary hypertension, unspecified I27.20 and Congestive heart failure I50.[address] [id number] 09/15/2024 RAFAEL AZAR Chronic hypoxic respiratory failure [...] chronic hypoxic respiratory failure (ICD-10 - J96.21) 09/02/2024 Acute on chronic hypoxic respiratory failure (ICD-10 - J96.21) 09/05/2024 Acute on chronic hypoxic respiratory failure (ICD-10 - J96.21) 09/08/2024 Acute on chronic hypoxic respiratory failure (ICD-10 - J96.21) 09/10/2024 Chronic respiratory failure with hypercapnia (ICD-10 - J96.12) 09/10/2024 Chronic hypoxic respiratory failure (ICD-10 - J96.11) 09/15/2024 Chronic hypoxic respiratory failure (ICD-10 - J96.11) 09/08/2024 Acute on chronic respiratory failure with hypercapnia (ICD-10 - J96.22) 09/15/2024 Chronic respiratory failure with hypercapnia (ICD-10 - J96.12) 09/10/2024 Pulmonary hypertension, unspecified (ICD-10 - I27.20) 09/05/2024 Acute on chronic respiratory failure with hypercapnia (ICD-10 - J96.22) 09/02/2024 Acute on chronic respiratory failure with hypercapnia (ICD-10 - J96.22) 08/24/2024 Acute on chronic respiratory failure with [...] 08/24/2024 Pulmonary hypertension, unspecified (ICD-10 - I27.20) 09/02/2024 Pulmonary hypertension, unspecified (ICD-10 - I27.20) 09/05/2024 Pulmonary hypertension, unspecified (ICD-10 - I27.20) 09/08/2024 Pulmonary hypertension, unspecified (ICD-10 - I27.20) 09/10/2024 Congestive heart failure (ICD-10 - I50.9) 09/15/2024 Pulmonary hypertension, unspecified (ICD-10 - I27.20) 09/15/2024 Congestive heart failure (ICD-10 - I50.9) 09/08/2024 Congestive heart failure (ICD-10 - I50.9) 09/05/2024 Congestive heart failure (ICD-10 - I50.9) 09/02/2024 Congestive heart failure (ICD-10 - I50.9) 08/24/2024 Congestive heart failure (ICD-10 - I50.9) 08/17/2024 Congestive heart failure (ICD-10 - I50.9) 08/10/2024 Congestive heart failure (ICD-10 - I50.9) 08/08/2024 [...] plan of care with Dr. Rafael Azar 09/05/2024 Other Seen in collaboration and discussed plan of care with Dr. Rafael Azar 09/10/2024 Other Seen in collaboration and discussed plan of care with Dr. Rafael Azar Plan Of Treatment No Information Insurance Providers Payer Name Payer Address Payer Phone Subscriber Number Group Number Insured Name Patient Relationship to Insured Coverage Start Date Coverage End Date [employer] [place] [employer] [address] [facility] [address] [place] [address] [id number] Juanita Redman Self - patient is the insured
--- OUTSIDE RECORDS SUMMARY | 2024-09-16 21:24 | XMS_ITS | Clinical Summary ---
Author Organization [facility] Address [address] [place], [place] [id number] Care Team Providers Care Photo Technologist Name Role Phone House Sr., Segundo MAXWELL [...] (1 - 1-dose 75+ series) 2038 Insurance [facility] Care Teams Photo Technologist Relationship Specialty Start Date End Date Segundo Rawls Sr., DO PCP - General Family Medicine 04/18/18
--- OUTSIDE RECORDS SUMMARY | 2024-09-16 21:24 | XMS_ITS | Clinical Summary ---
Author Organization Perfect [employer] [facility] tem Address [id number] [address] [place] [address] Care Team Providers Care It Applications Analyst Name Role Phone Alana Miller APRN-STUDIO TECHNICIAN Primary Care Provider Allergies No known active allergies Medications ELIQUIS [...] mL nebulizerIndica tions:Acute respiratory failure with hypoxia (CMS-HCC) Inhale 3 [...] Encounters Date Type Department Care Team Description 09/12/2024 1:47 PM EDT - 09/12/2024 11:59 PM EDT Hospital Encounter [facility] Imaging [address] [place] [address] Hematoma; Lump of right wrist Discharge Disposition: Home 09/12/2024 Travel 07/09/2024 Continuing Care [facility] [address] [place] [address] Quintin Forman MD 07/02/2024 1:00 PM EDT - 07/02/2024 1:45 PM EDT Surgery [facility] - Endoscopy [address] [place] [phone] Quintin Forman MD BRONCHOSCOPY ALVEOLAR LAVAGE [[id number] (CPT )] 07/02/2024 12:52 PM EDT Anesthesia Event [facility] [address] [place] [phone] Lowell Trejo MD 07/02/2024 Travel 06/19/2024 Travel 06/13/2024 6:37 PM EST - 07/03/2024 5:40 PM EDT Hospital Encounter [facility] - GEN 7 ICU [address] [place] [phone] Cristy Hampton MD Noori, Zaid A, MD Mucus plug in respiratory tract (Primary Dx); Acute respiratory failure with hypoxia ([facility]-H[facility]) Discharge Disposition: Long Term Facility-Medicare Cert from Last 3 Months Social History Tobacco [...] 06/24/2024 8:40 AM EDT Plan of Treatment Health Maintenance Due Date [...] PM EDT Mucus plug in respiratory tract [place] BRNCHSC W/BRNCL ALVEOLAR LAVAGE 07/02/2024 12:52 PM [...] 06/24/2024 8:00 AM EDT BRONCHOPULMONARY HYGIENE Routine 8:00 AM EDT RESP ARTERIAL LINE SETUP Routine 8:00 AM EDT XR CHEST 1 VW Routine 06/24/2024 6:17 AM EDT BLOOD GAS, ARTERIAL STAT 06/24/2024 4 :59 AM EDT VENTILATION Routine 06/24/2024 4:00 AM EDT RESP ARTERIAL LINE SETUP Routine 4:00 AM EDT BRONCHOPULMONARY HYGIENE Routine 2:00 AM EDT CBC WITH AUTO DIFFERENTIAL [...] ARTERIAL LINE SETUP Routine 12:00 PM EDT HEMOGLOBIN AND HEMATOCRIT, BLOOD [...] Routine 4:00 PM EDT BRONCHOPULMONARY HYGIENE Routine 2:00 PM EDT VENTILATION Routine 06/21/2024 12:00 [...] SETUP Routine 4:00 AM EDT VENTILATION Routine 06/19/2024 4:00 [...] Routine 025 8:00 PM EDT VENTILATION Routine 06/18/2024 8:00 PM EDT VENTILATION Routine 06/18/2024 4:00 PM EDT HEMODIALYSIS INPATIENT Routine 2:50 PM EDT VENTILATION Routine 06/18/2024 12:00 PM EDT BRONCHOPULMONARY HYGIENE Routine 025 11:58 AM EDT PROTIME & INR Routine [...] 12:00 AM EST from Last 3 Months Results * DNR Physician Order Report (Scanned Into EHR) (07/09/2024 8:12 AM EDT) Narrative 07/09/2024 8:12 AM EDT Ordered by an unspecified provider. us Not In System Ref Prov OUTPATIENT REFERRAL ORDER SALMA Final Result * Hemodialysis inpatient (07/03/2024 4:32 PM EDT) Narrative Richa Chairez, RAMONITA - 07/03/2024 4:32 PM EDT Richa Chairez [...] well with no immediate complication Catheter used [place] Path 23 cm tunneled / cuffed catheter. [...] well with no immediate complication Catheter used [place] Path 23 cm tunneled / cuffed catheter. [...] - 11.0 X10E9/L 07/03/2024 3:18 AM EDT [facility] RBC count 2.45(L) 3.80 - 5.20 X10E12/L 07/03/2024 3:18 AM EDT [facility] Hemoglobin 7.8(L) 11.7 - 15.5 g/dL 07/03/2024 3:18 AM EDT [facility] Hematocrit 23.7(L) 35 - 47 % 07/03/2024 3:18 AM EDT [facility] MCV 97 80 - 100 fL 07/03/2024 3:18 AM EDT [facility] MCH 31.8 27 - 34 pg [facility] MCHC 32.8 32 - 36 g/dL 07/03/2024 3:18 AM EDT [facility] RDW 18.3(H) 11.5 - 15.0 % 07/03/2024 3:18 AM EDT [facility] Platelets 330 150 - 450 X10E9/L 07/03/2024 3:18 AM EDT [facility] MPV 7.2 7 - 12 fL 07/03/2024 3:18 AM EDT [facility] % neutrophils 90.0 % 07/03/2024 3:18 AM EDT [facility] % lymphocytes 7.7 % 07/03/2024 3:18 AM EDT [facility] % monocytes 1.2 % 07/03/2024 3:18 AM EDT [facility] % eosinophils 0.5 % 07/03/2024 3:18 AM EDT [facility] % Basophils 0.6 % 07/03/2024 3:18 AM EDT [facility] Neutrophils Absolute (A) 7.3(H) 1.5 - 6.6 X10E9/L 07/03/2024 3:18 AM EDT [facility] Lymphocytes Absolute 0.6(L) 1.0 - 3.5 X10E9/L 07/03/2024 3:18 AM EDT [facility] Monocytes Absolute 0.1 0 - 0.9 X10E9/L 07/03/2024 3:18 AM EDT [facility] Eosinophils Absolute 0.0 0.0 - 0.4 X10E9/L 07/03/2024 3:18 AM EDT [facility] Basophils Absolute 0.0 0.0 - 0.2 X10E9/L 07/03/2024 3:18 AM T [facility] Blood / Unknown 07/03/2024 2 :48 AM EDT 07/03/2024 3:00 AM EDT us Nathaly Cristina MD LAB BLOOD ORDERABLES Final Resu lt Performing Organization Address [facility]/ZIP Co de Phone Number [facility] [address] [facility], [address] [address] * Phosphorus (07/03/2024 2:48 AM EDT) Only the most recent of21 resultswithin the time period is included. Phosphorus 3.6 2.4 - 4.9 mg/dL 07/03/2024 3:31 AM EDT [facility] PLASMA 07/03/2024 2:48 AM EDT 07/03/2024 3:00 AM EDT us Nathaly Cristina MD LAB BLOOD ORDERABLES Final Resu lt Performing Organization Address [facility] Co de Phone Number [facility] [address] [place] [address] * Magnesium (07/03/2024 2:48 AM EDT) Only the most recent of24 resultswithin the time period is included. Magnesium 2.1 1.8 - 2.6 mg/dL 07/03/2024 3:31 AM EDT [facility] PLASMA 07/03/2024 2:48 AM EDT 07/03/2024 3:00 AM EDT us Nathaly Cristina MD LAB BLOOD ORDERABLES Final Resu lt Performing Organization Address [facility] Co de Phone Number [facility] [address] [facility], [address] [place] [address] * (ABNORMAL) Comprehensive metabolic panel (07/03/2024 2:48 AM EDT) Only the most recent of18 resultswithin the time period is included. Sodium 136 134 - 146 mmol/L 07/03/2024 3:31 AM EDT [facility] Potassium, Bld 4.5 3.5 - 5.0 mmol/L 07/03/2024 3:31 AM [facility] Chloride 100 98 - 109 mmol/L 07/03/2024 3:31 AM [facility] CO2 24 22 - 32 mmol/L 07/03/2024 3:31 AM [facility] Anion gap 12 5 - 15 mmol/L 07/03/2024 3:31 AM [facility] BUN 32(H) 5 - 27 mg/dL 07/03/2024 3:31 AM [facility] Creatinine 2.02(H) 0.40 - 1.00 mg/dL 07/03/2024 3:31 AM [facility] Comment:METHOD TRACEABLE TO IDMS STANDARD Glucose 131(H) 65 - 99 mg/dL 07/03/2024 3:31 AM [facility] Calcium 9.8 8.5 - 10.5 mg/dL 07/03/2024 3:31 AM [facility] Total Protein 7.4 6.0 - 8.0 g/dL 07/03/2024 3:31 AM [facility] Albumin 4.2 3.2 - 5.3 g/dL 07/03/2024 3:31 AM [facility] Alkaline Phosphatase 60 39 - 130 U/L 07/03/2024 3:31 AM [facility] AST 9 0 - 41 U/L 07/03/2024 3:31 AM [facility] ALT 6 0 - 31 U/L 07/03/2024 3:31 AM [facility] Total bilirubin 1.2 0.3 - 1.2 mg/dL 07/03/2024 3:31 AM [facility] eGFR (CKD-EPI)non-rac e dependent 28(L) >59 ml/min/1.7 3sq.m 07/03/2024 3:31 AM [facility] Comment: Reported eGFR is based on the CKD-EPI 2020 equation that does not use a race coefficient. PLASMA 07/03/2024 2:48 AM EDT 07/03/2024 3:00 AM EDT Nathaly Cristina MD LAB BLOOD ORDERABLES Final Resu lt [facility] [address] [place] [address] * ECG 12 lead (07/02/2024 10:43 PM EDT) 07/02/2024 10:4 3 PM EDT Narrative TRACEMASTERVUE - 07/04/2024 4:21 PM EDT Nathaly Cristina MD ECG ORDERABLES Final Result Performing Organization Address [facility]/ZIP Co de Phone Number [facility] * Hemodialysis inpatient (07/02/2024 5:49 PM EDT) [...] Abhijit Velasco RN, Dialysis 07/02/24 5:49 PM Katarina Trotter MD DIALYSIS ORDERABLES Final R esult * (ABNORMAL) Blood Gas, Arterial (07/02/2024 4:32 PM EDT) Only the most recent of8 resultswithin the time period is included. Sample Type ARTERIAL 07/02/2024 4:48 PM EDT [facility] Body Temp 37.0 37.0 C 07/02/2024 4:48 PM EDT [facility] pH 7.252(L) 7.350 - 7.450 07/02/2024 4:48 PM EDT [facility] PCO2 52.7(H) 35 - 45 MMHG 07/02/2024 4:48 PM EDT [facility] PO2 66(L) 80 - 100 MMHG 07/02/2024 4:48 PM EDT [facility] Base,Deficit 4.0(H) 0.0 - 2.0 MMOL/L 07/02/2024 4:48 PM EDT [facility] Portable HCO3 23.2 22 - 26 MMOL/L 07/02/2024 4:48 PM EDT [facility] % O2 Sat 89.0(L) >90 % 07/02/2024 4:48 PM EDT [facility] Jagdeep's Test NA 07/02/2024 4:48 PM EDT [facility] SPO2 91 % 07/02/2024 4:48 PM EDT [facility] Sample Site RRad 07/02/2024 4:48 PM EDT [facility] Insp. O2 Conc. 28 % 07/02/2024 4:48 PM EDT [facility] Oxygen Source NPPV 07/02/2024 4:48 PM EDT [facility] Artrial Blood Specimen 07/02/2024 4:32 PM EDT 07/02/2024 4:48 PM EDT us Cristy Hampton MD LAB BLOOD ORDERABLES Final R esult [facility] [address] [place] [address] * AFB culture concentrated includes AFB smear (07/02/2024 1:04 PM EDT) AFB Smear NO ACID FAST BACILLI (CONCENTRATED SMEAR) 07/03/2024 10:10 AM EDT [facility] Culture NO ACID FAST BACILLI ISOLATED IN 8 WEEKS 09/10/2024 12:35 PM EDT [facility] Bronchoalveolar Lavage Structure of lower lobe of left lung / Unknown 07/02/2024 1:04 PM EDT Comment:Pre-op diagnosis: Mucus plug in respiratory tract [T17.998A] us Quintin Forman MD MICROBIOLOGY - GENERAL ORDERABLE S Final Result [facility] [address] [place] [address], [address] [place] [address] * Cytology (07/02/2024 1:04 PM EDT) Bronchoalveolar Lavage Structure of lower lobe of left lung / Unknown 07/02/2024 1:04 PM EDT Comment:Pre-op diagnosis: Mucus plug in respiratory tract [T17.998A] Narrative COPATH - 07/03/2024 4:31 PM EDT [facility] [address] [place] [address] Cytology Consultation Patient Name:JUANITA REDMAN:1965 (Age: 59)Gender:FTaken:07/02/2024Reported:07/03/2024 16:31Physician(s):Quintin Forman M.D. ([phone])Copy To: Rec. #:[id number]: #[id number] Final Cytologic Diagnosis Lung, left lower lobe, bronchoalveolar lavage: No malignant cells identified. ao/07/03/2024 Interpretation performed at [facility], [address] [place] [address], License number: [id number].Electronically Signed Out By Earl Boone MD Clinical History Mucus plug in respiratory tract [T17.998A]. Acute hypoxic respiratory failure (CMS-HCC) [J96.01]. Gross Description Received was 5ml of clear colorless fluid unfixed labeled as [place], lung, left lower lobe, BAL . CytoLyt added in lab. Unable to obtain cellblock, ThinPrep made. Source of Specimen Lung, left lower lobe, bronchoalveolar lavage Non [employer] ThinPrep Fee Code(s): 1; 21840 Quintin Forman MD PATHOLOGY/CYTOLOGY ORDERABLES Fi nal Result COPATH * (ABNORMAL) Lower resp/sputum culture inc gram stain: Patient acquired (07/02/2024 1:04 PM EDT) Gram Stain Result 1 to 9 WHITE BLOOD CELLS/LPF 07/02/2024 10:56 PM EDT [facility] Gram Stain Result 10 to 24 SQUAMOUS EPITHELIAL CELLS/LPF 07/02/2024 10:56 PM EDT [facility] Gram Stain Result 0 CILIATED EPITHELIAL CELLS/LPF 07/02/2024 10:56 PM EDT [facility] Gram Stain Result MANY GRAM POSITIVE COCCI 07/02/2024 10:56 PM EDT [facility] Gram Stain Result FEW GRAM NEGATIVE RODS 07/02/2024 10:56 PM EDT [facility] Gram Stain Result FEW GRAM NEGATIVE DIPLOCOCCI(A) 07/02/2024 10:56 PM EDT [facility] Gram Stain Result RARE YEAST 07/02/2024 10:56 PM EDT [facility] Culture MANY STAPHYLOCOCCUS AUREUS METHICILLIN RESISTANT(A) 07/04/2024 10:01 AM EDT [facility] Culture ALONG WITH MANY NORMAL ORAL JEET 07/04/2024 10:01 AM EDT [facility] Bronchoalveolar Lavage Structure of lower lobe [...] VARSHA METHOD <=0.5: Susceptible Comment:CLIA ID [id number] Quintin Forman MD MICROBIOLOGY - GENERAL ORDERABLE S Final Result Performing Organization Address City/[facility]/ZIP Co de Phone Number [facility] [address] [facility], [address] [place] [address] * (ABNORMAL) Fungal culture includes fungal smear (07/02/2024 1:04 PM EDT) Fungal smear NO FUNGAL ELEMENTS SEEN ON DIRECT SMEAR 07/03/2024 9:25 AM EDT [facility] Culture MABLE ALBICANS(A) 07/07/2024 2:50 PM EDT [facility] Bronchoalveolar Lavage Structure of lower lobe of left lung / Unknown 07/02/2024 1:04 PM EDT Comment:Pre-op diagnosis: Mucus plug in respiratory tract [T17.998A] Quintin Forman MD MICROBIOLOGY - GENERAL ORDERABLE S Final Result Performing Organization Address [facility] Co de Phone Number [facility] [address] [facility], [address] [place] [address] * Body Fluid cell count with differential (07/02/2024 1:04 PM EDT) Specimen type BRONCHOALVEOLAR LAVAGE 07/02/2024 5:17 PM EDT [facility] Comment: LEFT LUNG, LOWER LOBE Fluid neutrophils 18 % 025 7:26 PM EDT [facility] Fluid lymphocyte 3 % 07/03/19 7:26 PM EDT [facility] Macrophages 79 % 07/02/2024 7:26 PM EDT [facility] Nucleated cell ct 76 /uL 025 7:26 PM EDT [facility] Fluid RBC 220 /uL 07/02/2024 7:26 PM EDT [facility] Fluid color YELLOW 07/02/2024 7:26 PM EDT [facility] Fluid clarity HAZY 07/02/2024 7:26 PM EDT [facility] Body fluid comment Interpre tation-------- 07/03/2024 5:44 AM EDT [facility] Comment: Reference values for this fluid [...] STOOLS ORDERABLE S Edited Result - Final tweetTV [facility] [address] [facility], [address] [place] [address] * Bronchoscopy Report (07/02/2024 11:54 AM EDT) [...] - 0.74 mmol/L 07/02/2024 10:49 AM EDT [facility] Comment:NEW REFERENCE RANGE PLASMA 07/02/2024 10:2 4 AM EDT 07/02/2024 10:39 AM EDT us Nathaly Cristina MD LAB BLOOD ORDERABLES Final Resu lt [facility] [address] [facility], [address] [place] [address] * (ABNORMAL) Protime & INR (07/02/2024 10:24 AM EDT) Only the most recent of6 resultswithin the time period is included. Protime 13.5(H) 9.8 - 13.2 sec 07/02/2024 10:51 AM EDT [facility] Inr 1.2 0.9 - 1.2 07/02/2024 10:51 AM EDT [facility] PLASMA 07/02/2024 10:2 4 AM EDT 07/02/2024 10:40 AM EDT us Kvng Hayes MD LAB BLOOD ORDERABLES Final Result Performing Organization Address City/[facility]/ZIP Co de Phone Number [facility] [address] [address] * Potassium (07/02/2024 10:24 AM EDT) Only the most recent of9 resultswithin the time period is included. Potassium, Bld 4.2 3.5 - 5.0 mmol/L 07/02/2024 11:12 AM EDT [facility] PLASMA 07/02/2024 10:2 4 AM EDT 07/02/2024 10:39 AM EDT us Nathaly Cristina MD LAB BLOOD ORDERABLES Final Resu lt [facility] [address] [place] [address], [address] [place] [address] * (ABNORMAL) Ionized calcium (07/01/2024 2:50 PM EDT) Only the most recent of3 resultswithin the time period is included. Calcium, ionized 5.6(H) 4.5 - 5.3 mg/dL 07/01/2024 3:10 PM EDT [facility] PLASMA 07/01/2024 2:50 PM EDT 07/01/2024 3:02 PM EDT Danny Grey MD LAB BLOOD ORDERABLES Fin al Result [facility] [address], [address] [place] [address] * Fluoroscopy swallow motility function (07/01/2024 11:05 [...] Sample Type VENOUS 06/29/2024 9:01 PM EDT [facility] Body Temp 37.0 37.0 C 06/29/2024 9:01 PM EDT [facility] pH, Venous 7.230(L) 7.320 - 7.420 06/29/2024 9:01 PM EDT [facility] PCO2, Venous 58.6(H) 35 - 50 MMHG 06/29/2024 9:01 PM EDT [facility] PO2, Venous 35 30 - 50 MMHG 06/29/2024 9:01 PM EDT [facility] Base,Deficit 3.0(H) 0.0 - 2.0 MMOL/L 06/29/2024 9:01 PM EDT [facility] Portable HCO3 24.5(H) 20.0 - 24.0 MMOL/L 06/29/2024 9:01 PM EDT [facility] % O2 Sat 54.0(L) >80.0 % 06/29/2024 9:01 PM EDT [facility] Jagdeep's Test NA 06/29/2024 9:01 PM EDT [facility] SPO2 99 % 06/29/2024 9:01 PM EDT [facility] Sample Site N/A 06/29/2024 9:01 PM EDT [facility] Insp. O2 Conc. 4 % 06/29/2024 9:01 PM EDT [facility] Oxygen Source NC 06/29/2024 9:01 PM EDT [facility] Blood / Unknown 06/29/2024 8 :56 PM EDT 06/29/2024 9:01 PM EDT us Cristy Hampton MD LAB BLOOD ORDERABLES Final R esult [facility] [address] [place] [address] * Hepatitis B core antibody, IgM (06/27/2024 9:47 AM EDT) Hep B Core IgM Ab Non-Reacti ve Non-Reacti ve^Non-[place] ctive 06/27/2024 11:44 AM EDT [facility] Comment:NEW TEST METHOD Serum / Unknown 06/27/2024 9 :47 AM EDT 06/27/2024 10:02 AM EDT us Katarina Trotter MD LAB BLOOD ORDERABLES Final Result [facility] [address] [facility] [place] [address] * Hemodialysis inpatient (06/25/2024 4:00 PM EDT) [...] - 15.5 g/dL 06/23/2024 9:10 AM EDT [facility] Hematocrit 23.3(L) 35 - 47 % 06/23/2024 9:10 AM EDT [facility] Blood / Unknown 06/23/2024 8 :42 AM EDT 06/23/2024 8:58 AM EDT us Filomena Newman MD LAB BLOOD ORDERABLES Final R esult [facility] [address] [facility] [place] [address] * Transfuse RBC:1 Unit (06/22/2024 4:51 AM [...] (06/21/2024 10:00 AM EDT) Blood component type [id number] BLOOD [employer] Unit number [id number] BL OOD [facility]ANK [facility] [employer] Unit ABO A BLOOD [employer] Unit RH POS BLOOD [facility] [employer]atible BLOOD BA NK - LISA Status of unit TRANSFUSED BLOO D [facility]ANK [facility] [employer] Expiration Date [id number] [facility]LO[facility] [employer] [employer] BB Type Barcode 6200 BLOOD [facility]ANK [facility] [employer] Blood 06/21/2024 10:0 0 AM EDT Nathaly Cristina MD BLOOD BANK PRODUCT ORDERABLES E dited Result - Final [facility]LO[facility] [employer] * Type and screen(includes indirect chito) (06/21/2024 10:00 AM EDT) ABO A 06/21/2024 12:21 PM EDT [facility] RH Positive 06/21/2024 12:21 PM EDT [facility] Antibody Screen Negative 06/21/2024 12:21 PM EDT [facility] 06/21/2024 10:0 0 AM EDT Filomena Newman MD BLOOD BANK TEST ORDERABLES E dited Result - Final [facility] [address] [place] [address], [place] * Ultrafiltration inpatient (06/20/2024 5:19 PM [...] - 2.0 mmol/L 06/20/2024 9:57 AM EDT [facility] Comment: Result did not trigger repeat Lactate, re-order if needed. PLASMA 06/20/2024 8:58 AM EDT 06/20/2024 9:14 AM EDT us Filomena Newman MD LAB BLOOD ORDERABLES Final R esult [facility] [address] [facility] [place] [address] * Ultrafiltration inpatient (06/19/2024 2:06 PM EDT) Emely Huddleston RN - 06/19/2024 2:06 PM EDT Emely [...] - 37 sec 06/18/2024 8:54 AM EDT [facility] PLASMA 06/18/2024 8:20 AM EDT 06/18/2024 8:38 AM EDT Patrick Mustafa MD LAB BLOOD ORDERABLES Final Result [facility] [address] [facility] [place] [address] * (ABNORMAL) Liver panel (06/18/2024 3:10 AM EDT) Only the most recent of4 resultswithin the time period is included. Alkaline phosphatase 78 39 - 130 U/L 06/18/2024 3:54 AM EDT [facility] AST 15 0 - 41 U/L 06/18/2024 3:54 AM EDT [facility] ALT 3 0 - 31 U/L 06/18/2024 3:54 AM EDT [facility] Total Bilirubin 1.2 0.3 - 1.2 mg/dL 06/18/2024 3:54 AM EDT [facility] Bilirubin, direct 0.7(H) 0.0 - 0.4 mg/dL 06/18/2024 3:54 AM EDT [facility] Albumin 2.8(L) 3.2 - 5.3 g/dL 06/18/2024 3:54 AM EDT [facility] Total Protein 5.5(L) 6.0 - 8.0 g/dL 06/18/2024 3:54 AM EDT [facility] PLASMA 06/18/2024 3:10 AM EDT 06/18/2024 3:23 AM EDT us Patrick Mustafa MD LAB BLOOD ORDERABLES Final Result [facility] [address], [address] [place] [address] * X-ray abdomen NG Tube placement 1 [...] - 146 mmol/L 06/17/2024 6:00 PM EDT [facility] Potassium, Bld 4.1 3.5 - 5.0 mmol/L 06/17/2024 6:00 PM EDT [facility] Chloride 106 98 - 109 mmol/L 06/17/2024 6:00 PM EDT [facility] CO2 25 22 - 32 mmol/L 06/17/2024 6:00 PM EDT [facility] Anion gap 10 5 - 15 mmol/L 06/17/2024 6:00 PM EDT [facility] PLASMA 06/17/2024 4:54 PM EDT 06/17/2024 5:21 PM EDT us Katarina Trotter MD LAB BLOOD ORDERABLES Final Result [facility] [address] [place] [address] * Vancomycin, random (06/17/2024 2:00 AM EDT) Only the most recent of2 resultswithin the time period is included. Vancomycin 15.8 5.0 - 40.0 ug/mL 06/17/2024 2:42 AM EDT [facility] Comment: Peak 30-40 ug/mL Trough 5-20 ug/ml PLASMA 06/17/2024 2:00 AM EDT 06/17/2024 2:15 AM EDT us Nathaly Cristina MD LAB BLOOD ORDERABLES Final Resu lt [facility] [address] [place] [address] from Last 3 Months Insurance [facility] MEDICAID Advance Directives * DNRCCA DNI (Latest Code Status on File) Date Activated Date Inactivated Comments 06/25/2024 2:15 PM 07/03/2024 7:47 PM * DNR Comfort Care Arrest (DNR-CCA) [place] Date Activated Date Inactivated Comments 06/25/2024 2:07 PM 06/25/2024 2:15 PM * Full Code Date Activated Date Inactivated Comments 06/13/2024 8:54 PM 06/25/2024 2:07 PM Care Teams It Applications Analyst Relationship Specialty Start Date End Date Alana Miller, PLANT ENGINEER-STUDIO TECHNICIAN [address] [facility] [address] [place] [address] PCP - General Nurse Practitioner 09/12/24
--- OUTSIDE RECORDS SUMMARY | 2024-09-16 21:24 | XMS_ITS | Clinical Summary ---
Author Organization [facility] Address [address] [place] [address] Phone Care Team Providers Care Jacquard Loom Card Changer Name Role Phone Unavailable Primary Care Provider [...]
--- NOTE | 2024-09-16 21:28 | PC.NURSE ---
Pt presents from detention (spring) for low blood pressure This nurse recieved report fromnurse at the detention stating that patient had gone to dialysis today and has not hd a steady blood pressure since EMS also stated patient had dialysis today but patient reports not having dialysis since Monday because she has not fell well enough Pt is A&Ox4 Pt arrives at 85% on room air - 4liters o2 via nc applied Pt states she does not normally wear O2 Pt has a 24 gauge IV established in her left wrist on arrival
--- NOTE | 2024-09-16 21:31 | ECG_ITS ---
[facility] Test Date: 2024-09-16 Pat Name: ORESTES LOPEZ Department: Room: - Gender: Female Business Analyst: : 1965 Requested By: [id number] Order Number: [id number] Reading MD: KAREN FRANCE M.D. Measurements Intervals [place] Rate: 70 P: 61 MO: 158 QRS: 75 QRSD: 78 T: 30 QT: 442 QTc: 463 Interpretive Statements 1100 Sinus rhythm 8304 Long QTc interval 9150 abnormal ECG Compared with the ECG of 08-20-2024 11:22, Sinus rhythm has replaced atrial flutter Electronically Signed On 09-17-2024 6:50:59 EDT by KAREN FRANCE M.D.
--- NOTE | 2024-09-16 21:41 | ED.GENADUL1 ---
HPI HPI - General Adult General Chief complaint: Recheck/Abnormal Lab/Rx Stated complaint: hypotension Time Seen by Provider: 09/16/24 21:35 Source: patient Mode of arrival: ambulance Limitations: no limitations History of Present Illness HPI narrative: patient is a poor historian. hemodialysis patient. Has right subclavian catheter in place for dialysis. Last dialysis 09/13/24 . dialysis scheduled today. She is not sure she had dialysis was suppose to have dialysis today but felt weak. Sent to the ER for hypotension. No pain. Feels nauseated. Denies dyspnea but RA pulse ox 86%. Provided supplemental 02. BP systolic 88. Has low grade fever. DNC Related Data Home Medications ?Medication ?Instructions ?Recorded ?Confirmed levothyroxine 100 mcg tablet 100 mcg PO DAILY 02/13/23 08/20/24 allopurinol 100 mg tablet 100 mg PO DAILY 08/20/24 08/20/24 amoxicillin 500 mg tablet mg 08/20/24 apixaban 2.5 mg tablet (Eliquis) mg 08/20/24 bumetanide 2 mg tablet 2 mg PO DAILY 08/20/24 08/20/24 carvedilol 12.5 mg tablet mg 08/20/24 cetirizine 5 mg tablet 5 mg PO DAILY PRN anxiety 08/20/24 08/20/24 cholecalciferol 75824 08/20/24 dicyclomine 10 mg capsule mg 08/20/24 diphenhydramine HCl 25 mg capsule 25 mg PO Q6H PRN itching 08/20/24 08/20/24 (Benadryl) escitalopram oxalate 20 mg tablet mg 08/20/24 folic acid 1 mg tablet 08/20/24 ipratropium 0.5 mg-albuterol 3 mg ml inhalation 08/20/24 (2.5 mg base)/3 mL nebulization soln lorazepam 0.5 mg tablet mg 08/20/24 midodrine 10 mg tablet mg 08/20/24 phenol 1.5 %-glycerin 33 % mucosal 1 spray mucous membrane Q2H 08/20/24 08/20/24 spray (Chloraseptic Max Sore Throat) potassium chloride 20 mEq oral meq 08/20/24 packet Previous Rx's ?Medication ?Instructions ?Recorded walker #1 ea 02/17/23 pantoprazole 40 mg tablet,delayed 40 mg PO DAILY #30 tabs 04/28/24 release (Protonix) Allergies Allergy/AdvReac Type Severity Reaction Status Date / Time cephalexin (From Keflex) Allergy swelling Verified 09/16/24 21:22 prednisone Allergy swelling Verified 09/16/24 21:22 Opioid HPI Opioid Management Most Recent Opioid Data: Last Pain Scale 5 06/12/24, 17:58 Last Pain Intensity 6 04/27/24, 10:24 Last ORT Total Score 4 06/13/24, 10:21 Last ORT Risk Category Moderate Risk 06/13/24, 10:21 Ur Phencyclidine Scrn, (NEGATIVE) Negative 02/13/23, 05:25 Review of Systems ROS Status of ROS 10 or more systems reviewed and unremarkable except as noted in history and below PFSH PFSH Medical History Hypoxia ?R09.02 - Hypoxemia (ICD-10) Acute renal failure superimposed on chronic kidney disease ?N17.9 - Acute kidney failure, unspecified (ICD-10) ?N18.9 - Chronic kidney disease, unspecified (ICD-10) Hypothermia ?T68.XXXA - Hypothermia, initial encounter (ICD-10) CHF exacerbation ?I50.9 - Heart failure, unspecified (ICD-10) Paroxysmal atrial fibrillation ?I48.0 - Paroxysmal atrial fibrillation (ICD-10) Chronic kidney disease, stage 4 (severe) ?N18.4 - Chronic kidney disease, stage 4 (severe) (ICD-10) Acute on chronic heart failure with preserved ejection fraction (HFpEF) ?I50.33 - Acute on chronic diastolic (congestive) heart failure (ICD-10) Ulcer of right heel ?L97.419 - Non-pressure chronic ulcer of right heel and midfoot with unspecified severity (ICD-10) Hepatorenal syndrome ?K76.7 - Hepatorenal syndrome (ICD-10) Pulmonary hypertension ?I27.20 - Pulmonary hypertension, unspecified (ICD-10) Valvular heart disease ?I38 - Endocarditis, valve unspecified (ICD-10) Fluid overload ?E87.70 - Fluid overload, unspecified (ICD-10) Hypothyroidism ?E03.9 - Hypothyroidism, unspecified (ICD-10) Hypomagnesemia ?E83.42 - Hypomagnesemia (ICD-10) Hypoalbuminemia due to protein-calorie malnutrition ?E88.09 - Other disorders of plasma-protein metabolism, not elsewhere classified (ICD-10) ?E46 - Unspecified protein-calorie malnutrition (ICD-10) Hypertension ?I10 - Essential (primary) hypertension (ICD-10) Atrial fibrillation ?I48.91 - Unspecified atrial fibrillation (ICD-10) Chronic renal disease ?N18.9 - Chronic kidney disease, unspecified (ICD-10) Hypokalemia ?E87.6 - Hypokalemia (ICD-10) Hypocalcemia ?E83.51 - Hypocalcemia (ICD-10) Accidental fall ?W19.XXXA - Unspecified fall, initial encounter (ICD-10) Fracture of nasal bone ?S02.2XXA - Fracture of nasal bones, initial encounter for closed fracture (ICD-10) Hyponatremia ?E87.1 - Hypo-osmolality and hyponatremia (ICD-10) Hyperammonemia ?E72.20 - Disorder of urea cycle metabolism, unspecified (ICD-10) Hepatic encephalopathy ?K76.82 - Hepatic encephalopathy (ICD-10) Tobacco abuse ?Z72.0 - Tobacco use (ICD-10) Frequent falls ?R29.6 - Repeated falls (ICD-10) Lactic acidosis ?E87.20 - Acidosis, unspecified (ICD-10) Acute on chronic heart failure ?I50.9 - Heart failure, unspecified (ICD-10) Congestive heart failure ?I50.9 - Heart failure, unspecified (ICD-10) GERD (gastroesophageal reflux disease) ?K21.9 - Gastro-esophageal reflux disease without esophagitis (ICD-10) Stomach ulcer ?K25.9 - Gastric ulcer, unspecified as acute or chronic, without hemorrhage or perforation (ICD-10) Sigmoid diverticulosis ?K57.30 - Diverticulosis of large intestine without perforation or abscess without bleeding (ICD-10) Caries involving multiple surfaces of tooth ?K02.9 - Dental caries, unspecified (ICD-10) Renal cyst, acquired, left ?N28.1 - Cyst of kidney, acquired (ICD-10) Anxiety and depression ?F41.9 - Anxiety disorder, unspecified (ICD-10) ?F32.A - Depression, unspecified (ICD-10) Atrial fibrillation ?I48.91 - Unspecified atrial fibrillation (ICD-10) Smoker ?F17.200 - Nicotine dependence, unspecified, uncomplicated (ICD-10) Kidney failure ?N19 - Unspecified kidney failure (ICD-10) Alcohol abuse ?F10.10 - Alcohol abuse, uncomplicated (ICD-10) Surgical History History of endometrial ablation ?Z98.890 - Other specified postprocedural states (ICD-10) H/O section ?Z98.891 - History of uterine scar from previous surgery (ICD-10) Status post breast biopsy ?Z98.890 - Other specified postprocedural states (ICD-10) History of lumpectomy of both breasts ?Z98.890 - Other specified postprocedural states (ICD-10) S/P ablation of atrial fibrillation ?Z98.890 - Other specified postprocedural states (ICD-10) ?Z86.79 - Personal history of other diseases of the circulatory system (ICD-10) Family History Father Family history of CHF (congestive heart failure) Family history of diabetes mellitus Family history of hypertension Family history of myocardial infarction Mother Family history of cancer Family history of diabetes mellitus Family history of hypertension Family history of myocardial infarction Brother Family history of hypertension Family history of myocardial infarction Other Family history of COPD (chronic obstructive pulmonary disease) Social History Within the past year, how often did you have a drink containing alcohol: 2-3 times a week Smoking status: Current every day smoker Non-prescribed substance use: denies use Previous occupational history: retired Highest level of school completed/degree received: some college, no degree Are you now , , , , never or living with a partner: In a typical week, how many times do you talk on the telephone with family, friends, or neighbors: 3 or more times per week How often do you get together with friends or relatives: 3 or more times per week Little interest or pleasure in doing things: not at all Feeling down, depressed, or hopeless: not at all Feel stressed/tense/nervous/anxious/difficulty sleeping: not at all Do you think of yourself as: straight/heterosexual Gender Identity: female Exam Constitutional Vital Signs, click to edit/add: Last Vital Signs Temp 98.0 F 09/17/24 00:38 Pulse 72 09/17/24 00:30 Resp 19 09/17/24 00:00 BP 72/44 L 09/17/24 00:30 Pulse Ox 97 09/17/24 00:10 O2 Del Method Room Air, Nasal Cannula 09/16/24 21:40 O2 Flow Rate 4 09/16/24 21:40 Common normals: no apparent distress, average body habitus, oriented x3, no limitations, healthy appearing, alert and well nourished [facility] Common normals: normocephalic and head/scalp atraumatic Eye Common normals: EOMs intact bilaterally and conjunctivae normal Respiratory Common normals: normal respiratory effort, no retractions, no use of accessory muscles and clear to auscultation bilaterally Cardio Common normals: regular rate, regular rhythm, S1 normal heart sound and S2 normal heart sound GI Common normals: Normal to inspection, nondistended, normoactive bowel sounds present, soft to palpation and non-tender Extremity Common normals: normal to inspection and full ROM Neuro Common normals: oriented x3, CN's II-XII intact bilaterally, moves all extremities and no focal motor deficits Psych Appearance: grossly normal Course Vital Signs Vital signs: Vital Signs Temperature 99.5 F 09/16/24 21:19 Pulse Rate 69 09/16/24 21:19 Respiratory Rate 18 09/16/24 21:19 Blood Pressure 69/45 L 09/16/24 21:19 Pulse Oximetry 86 L 09/16/24 21:19 Oxygen Delivery Method Room Air 09/16/24 21:19 Temperature 98.0 F 09/17/24 00:38 Pulse Rate 72 09/17/24 00:30 Respiratory Rate 19 09/17/24 00:00 Blood Pressure 72/44 L 09/17/24 00:30 Pulse Oximetry 97 09/17/24 00:10 Oxygen Delivery Method Room Air, Nasal Cannula 09/16/24 21:40 Oxygen Delivery Flow Rate 4 09/16/24 21:40 Medical Decision Making MDM Narrative Medical decision making narrative: hemodialysis patient presents from senior living weak and hypotensive .DNRCCA. poor historian. No focal complaint other than feeling tired and nauseated. Last dialysis 09/13/24. Did not go today because of weakness. Hypotensive and brought to the ER. Has low grade temp of 99.5. pulse ox 86% RA. placed on 4L NC02 and sat improved to 94%. no respiratory distress. No obvious crackles on exam of her chest. Labs with WBC20.4. EKG NSR with long QT interval but no ST-T changes. Blood cultures ordered. Zosyn and Vanco ordered as well. She is hypotensive with BP 88 systolic. she is prescribed midodrine 10mg prn during dialysis. Given 10mg dose once today at senior living without improvement. chest xray per my review with poor inspiratory film. Cardiomegaly and either left pleural effusion or possible infiltrate. Patient remains alert but no distress. Did not give fluid bolus as she may be flud overloaded as there is uncertainty as to whether she had dialysis today or not and xray with cardiomegaly. Another dose of midodrine ordered. She has an elevated tropinin and a 2nd level ordered. Discussed with hospitalist at [facility] and patient accepted in transfer Lab Data Labs: Lab Results 09/16/24 09/16/24 Range/Units 21:45 23:40 WBC 20.4 H (4.0-11.0) 10^3/uL RBC 2.42 L (4.20-5.40) 10^6/uL Hgb 7.6 L (12.0-16.0) g/dL Hct 23.1 L* (36.0-48.0) % MCV 95.5 (81.0-99.0) fL MCH 31.4 (26.7-34.0) pg MCHC 32.9 (29.9-35.2) g/dL RDW 17.9 H (11.0-15.0) % Plt Count 214 (150-450) 10^3/uL MPV 9.1 L (9.5-13.5) fL Seg Neuts % (Manual) 86.0 H (43.0-75.0) Band Neutrophils % 9.0 H (0-5) % Lymphocytes % (Manual) 0.0 L (20.5-60.0) % Monocytes % (Manual) 5.0 (1.7-12.0) % Eosinophils % (Manual) 0.0 L (0.9-7.0) % Basophils % (Manual) 0.0 L (0.2-2.0) % Neutrophils # (Manual) 17.54 H (1.4-6.5) 10^3/uL Band Neutrophils # 1.8 H (0.0-0.3) 10^3/uL Lymphocytes # (Manual) 0.00 L (1.20-3.80) 10^3/uL Monocytes # (Manual) 1.02 H (0.30-0.80) 10^3/uL Eosinophils # (Manual) 0.00 (0.00-0.70) 10^3/uL Basophils # (Manual) 0.00 (0.00-0.10) 10^3/uL Sodium 128 L (136-145) mmol/L Potassium 5.0 (3.5-5.1) mmol/L Chloride 90 L (98-107) mmol/L Carbon Dioxide 28.0 (21.0-32.0) mmol/L Anion Gap 15.0 BUN 41.0 H (7.0-18.0) mg/dL Creatinine 3.56 H (0.55-1.02) mg/dL Est GFR ( Amer) 16 L (>=60 mL/min/1.73m^2) Est GFR (Non-Af Amer) 13 L (>=60 mL/min/1.73m^2) BUN/Creatinine Ratio 11.5 Glucose 82 (74-106) mg/dL Lactate 4.4 H* 4.0 H* (0.4-2.0) mmol/L Calcium 9.5 (8.5-10.1) mg/dL Total Bilirubin 0.5 (0.2-1.0) mg/dL AST 31 (15-37) U/L ALT 19 (14-59) U/L Alkaline Phosphatase 51 (46-116) U/L Troponin I High Sens 140.1 H* (4.0-51.3) pg/mL Total Protein 6.4 (6.4-8.2) g/dL Albumin 2.9 L (3.4-5.0) g/dL Globulin 3.5 g/dL Albumin/Globulin Ratio 0.8 Urine Color Yellow (YELLOW) Urine Clarity Clear (CLEAR) Urine pH 5.5 (5.0-9.0) Ur Specific Steptoe 1.020 (1.005-1.025) Urine Protein 100 A (NEG/TRACE) mg/dL Urine Glucose (UA) Negative (NEGATIVE) mg/dL Urine Ketones Trace A (NEGATIVE) mg/dL Urine Occult Blood Negative (NEGATIVE) Urine Nitrite Negative (NEGATIVE) Urine Bilirubin Negative (NEGATIVE) Urine Urobilinogen 0.2 (0.2-1.0) EU/dL Ur Leukocyte Esterase Trace A (NEGATIVE) Urine RBC None seen (0-2) #/HPF Urine WBC 2-5 A (NONE SEEN) #/HPF Ur Squamous Epith Cells Rare (NONE/RARE) #/LPF Ur Transition Epith Cell Rare A (NONE SEEN) #/LPF Urine Crystals Seen A (None Seen) #/HPF Amorphous Sediment Rare Urine Bacteria Trace A (NONE SEEN) #/HPF Urine Casts None seen (NONE SEEN) #/LPF Urine Mucus None seen (NONE SEEN) Ur Culture Indicated? No Discharge Plan Discharge Chief Complaint: Recheck/Abnormal Lab/Rx Clinical Impression: Hypotension, Hypoxemia, Sepsis, Elevated troponin Patient Disposition: [facility] Discharge Date/Time: 09/17/24 01:02
--- OUTSIDE RECORDS SUMMARY | 2024-09-16 21:41 | XMS_ITS | CCD ---
Author Organization [facility] Care Team Providers Care Motor Vehicles Supervisor Name Role Phone PHYSICIAN, DEFAULT Unavailable Unavailable PHYSICIAN, DEFAULT Unavailable Unavailable CASON, LASHA Unavailable Unavailable PHYSICIAN, DEFAULT Unavailable Unavailable PHYSICIAN, DEFAULT Unavailable Unavailable CASON, LASHA Unavailable Unavailable DO Segundo Rawls Primary Care Provider DO Hong Jewell Admit Provider [phone] DO Hong Jewell Attending Provider MD Rehan Russ Other Provider [...] Other Provider MD Brad Gan Other Provider [phone] EVAN, DR UNIQUE Sher Consulting Unavailable ANNA, DR NEWELL Admitting Unavailable HOUSE, DR RAYMOND Primary Care Unavailable HAY, DR NEWELL Attending Unavailable CARLENEECK, DR IZZY Sheridan Consulting Unavailabl e HAY, DR NEWELL Consulting Unavailable YAROSROSALINDA Marshall Consulting Unavailable CODY ALEXANDER Consulting Unavailable JUNO HERNÁNDEZ Admitting Unavailable JENNY, DR RAYMOND Primary Care Unavailable ZIEBER, DR DENISE Sher Consulting Unavailable JUNO HERNÁNDEZ Attending Unavailable JUNO HERNÁNDEZ Consulting Unavailable MD Luis LEONARDO Attending Unavailable HONG JEWELL Referring Unavailabl e DO Segundo Rawls Primary Care Provider [phone] DO Caden Jarrell Emergency Provider [phone] Vaibhav, William Unavailable Rohrbacher Katie SAVAGE Primary Care Provider Locorbacher Katie SAVAGE Attending Provider Unavailable Primary Care Provider UnavailSheryl Hickman Admitting Unavailable Katie Velasquez Primary Care Unavailable Sheryl Santamaria Attending Unavailable Katie Velasquez Attending Unavailable Eva, Katie Primary Care Unavailable Katie Velasquez Admitting Unavailable Rohrbacher Katie SAVAGE Primary Care Provider Sheryl Santamaria DO Attending Provider [phone] PROVIDER, UNKNOWN Attending Unavailable PROVIDER, UNKNOWN Admitting Unavailable Unavailable Primary Care Provider Unavailjamie e Rohrbacher LINE LEADKatie A Primary Care Provider Rohrbacher LINE LEAD, Katie A Primary Care Provider LUCIANA BLISS Admitting Unavailable ANA FALK Referring Unav ailable RKSHARIF RUBALCAVA A Consulting Unavailable QUINTIN FORMAN Attending Unavailable KAYLA ESTRADA Consulting Unavailable RELIEF, [facility] Cons ulting Unavailable JERARDO RUTH Referring Unavailable EVANGELISTA PHAM Primary Care Unavailable Allergies Allergy Classification Reported Allergen(s) Allergy Type Date of Onset Reaction(s) Facility (2 sources) cephalexin; Translations: [KEFLEX] Drug Allergy 4 AOF [facility] Repository (10 sources) predniSONE; Translations: [PREDNISONE] Drug Allergy 5 Swelling [facility] Repository (8 sources) Cephalexin; Translations: [cephalexin] Drug Allergy 2 Nausea, Unknown [facility] Medications Current Medications Medication Drug Class(es) Dates Sig (Normalized) Sig (Original) acetaminophen 325 mg / HYDROcodone bitartrate 5 mg oral tablet (1 source) Opioid Agonist Start: 09-09-2024 End: 10-09-2024 take 1 tablet by mouth every six hours as needed for pain and pain and pain HYDROcodone-acetamin ophen ([place]) 5-325 MG tablet Indications: Pain Take 1 tablet by mouth every 6 (six) hours if needed for severe pain 120 tablet 09/09/2024 10/09/2024 Active albuterol 0.833 mg/ml / ipratropium bromide 0.167 mg/ml inhalation solution (1 source) Anticholinergic , beta2-Adrenergi c Agonist Start: 07-03-2024 take 3 mL by inhalation every four hours as needed for wheezing ipratropium-albutero L (DUONEB) 0.5 mg-3 mg(2.5 mg base)/3 mL nebulizer Indications: Acute respiratory failure with hypoxia ([facility]) Inhale 3 mL by nebulization every [...] Active docusate sodium 50 mg / sennosides, half-way 8.6 mg oral tablet (1 source) Start: 07-03-2024 sennosides-docusate sodium (SENOKOT-S) 8.6-50 mg Take 2 tablets by mouth as needed for constipation. 30 tablet 07/03/2024 Active ferrous sulfate 324 mg delayed release oral tablet (7 sources) Start: 12-10-2021 Ferrous Sulfate 324 mg (65 mg iron) Tablet,Delayed Release (Dr/Ec) Active 324 MG PO Q48H December 10, 2021 12:00am take 1 tablet by ryan th every twenty-four hours Ferrous Sulfate 324 MG 1 tablet Orally Once a day Not-Taking folic acid 1 mg oral tablet (7 sources) Start: 12-10-2021 take 1 tablet by mouth once daily Folic Acid 1 mg Tablet Active 1 MG PO Daily December 10, 2021 12:00am LORazepam 0.5 mg oral tablet (9 sources) Benzodiazepine Start: 08-26-2024 End: 09-09-2024 take 1 tablet by mouth every eight hours for anxiety LORazepam (Ativan) 0.5 MG tablet Indications: Anxiety disorder, unspecified type Take 1 tablet (0.5 mg) by mouth every 8 (eight) hours if needed for anxiety for up to 14 days 42 tablet 08/26/2024 Active Start: 08-16-2024 End: 09-15-2024 take 1 [...] PO Daily 90 90 September 28, 2023 3:06pm September 28, 2023 [...] Discontinued 650 MG PO Three times daily 90 December 10, 2021 12:00am September 28, 2023 [...] 12-10-2021 Episodic Other aftercare (1 source) 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; Translations: [OTH ALF CURRENT DRUG THERAPY] Onset: 12-21-2021 Episodic Other [...] tree, unspecified] Onset: 06-13-2024 07-01-2024 Episodic Other injuries and conditions due to external causes (1 source) Other injury of unspecified body region, initial encounter; Translations: [Other injury of unspecified body region, initial encounter] Onset: 09-12-2024 Episodic Other lower respiratory disease (1 source) [...] 12-27-2023 Episodic Other skin disorders (1 source) Localized swelling, mass and lump, right upper limb; Translations: [Localized swelling, mass and lump, right upper limb] Onset: 09-12-2024 Episodic Residual codes; unclassified (3 sources) Noncompliance with treatment; Translations: [Noncompliance] 12-28-2023 Episodic Residual codes; unclassified (1 source) Pain, unspecified; Translations: [Pain, unspecified] Onset: 06-14-2024 Episodic Residual codes; unclassified (1 source) Pain; Translations: [Pain, unspecified] 09-09-2024 Episodic Respiratory failure; insufficiency; arrest (adult) (4 [...] Test Name Value Interpretation Reference Range Facility ALL HEMOGLOBINon 08-28-2024 Hemoglobin (Bld) [Mass/Vol] 6.9 g/dL Critically low 12.0 - 16.0 g/dL [facility] Comment on above: RESULTS CALLED TO NALINI RIVERA AHA @BY Cristela Ewing at 2102 Interpretation and review of laboratory results Abnormal [facility] CBC AND AUTO DIFFon 07-04-19 ABSOLUTE BASOPHIL 0.0 X10E9/L Normal 0.0-0.2 [facility] Comment on above: Performed By: #### C BCA, CMP, , 2776-04 ####[facility] ([id number])[address], [address], [place] [address] ABSOLUTE NEUTROPHIL 7.3 X10E9/L High 1.5-6.6 [facility] Comment on above: Performed By: #### C BCA, CMP, , 2776-04 ####[facility] ([id number])[address], [address] [place] [address] Basophils/100 WBC (Bld) 0.6 % Normal [facility] Comment on above: Performed By: #### C EWELINA, CMP, , 2776-04 ####[facility] ([id number])[address], [address] [place] [address] Eosinophils (Bld) [#/Vol] 0.0 10*3/uL Normal 0.0-0.4 [facility] Comment on above: Performed By: #### C BCA, CMP, , 2776-04 ####[facility] ([id number])[address], [address] [place] [address] Eosinophils/100 WBC (Bld) 0.5 % Normal [facility] Comment on above: Performed By: #### C BCA, CMP, , 2776-04 ####[facility] ([id number])[address], [address] [place] [address] Erythrocyte distribution width (RBC) [Ratio] 18.3 % High 11.5-15.0 [facility] Comment on above: Performed By: #### C BCA, CMP, , 2776-04 ####[facility] ([id number])[address], [address] [place] [address] Hematocrit (Bld) [Volume fraction] 23.7 % Low 35-47 [facility] Comment on above: Performed By: #### C BCA, CMP, , 2776-04 ####[facility] ([id number])[address], [address], [place] [address] Hemoglobin (Bld) [Mass/Vol] 7.8 g/dL Low 11.7-15.5 [facility] Comment on above: Performed By: #### C BCA, CMP, , 2776-04 ####[facility] ([id number])[address], [address] [place] [address] Lymphocytes (Bld) [#/Vol] 0.6 10*3/uL Low 1.0-3.5 [facility] Comment on above: Performed By: #### C EWELINA, CMP, , 2776-04 ####[facility] ([id number])[address], [address] [place] [address] Lymphocytes/100 WBC (Bld) 7.7 % Normal [facility] Comment on above: Performed By: #### C EWELINA, CMP, , 2776-04 ####[facility] ([id number])[address], [address] [place] [address] MCH (RBC) [Entitic mass] 31.8 pg Normal 27-34 [facility] Comment on above: Performed By: #### C BCA, CMP, , 2776-04 ####[facility] ([id number])[address], [address] [address] MCHC (RBC) [Mass/Vol] 32.8 g/dL Normal 32-36 [facility] Comment on above: Performed By: #### C BCA, CMP, , 2776-04 ####[facility] ([id number])[address], [address], [place] [address] MCV (RBC) [Entitic vol] 97 fL Normal 80-100 [facility] Comment on above: Performed By: #### C BCA, CMP, , 2776-04 ####[facility] ([id number])[address], [address], [place] [address] Monocytes (Bld) [#/Vol] 0.1 10*3/uL Normal 0-0.9 [facility] Comment on above: Performed By: #### C BCA, CMP, , 2776-04 ####[facility] ([id number])[address], [address], [place] [address] Monocytes/100 WBC (Bld) 1.2 % Normal [facility] Comment on above: Performed By: #### Bertha BCA, CMP, , 2776-04 ####[facility] ([id number])[address], [address], [place] [address] Neutrophils/100 WBC (Bld) 90.0 % Normal [facility] Comment on above: Performed By: #### C BCA, CMP, , 2776-04 ####[facility] ([id number])[address], [address], [place] [address] Platelet mean volume (Bld) [Entitic vol] 7.2 fL Normal 7-12 [facility] Comment on above: Performed By: #### C BCA, CMP, , 2776-04 ####[facility] ([id number])[address], [address], [place] [address] Platelets (Bld) [#/Vol] 330 10*3/uL Normal 150-450 [facility] Comment on above: Performed By: #### C BCA, CMP, , 2776-04 ####[facility] ([id number])[address], [address], [place] [address] RBC COUNT 2.45 X10E12/L Low 3.80-5.20 [facility] Comment on above: Performed By: #### C BCA, CMP, , 2776-04 ####[facility] ([id number])[address], [address] [place] [address] WBC (Bld) [#/Vol] 8.1 10*3/uL Normal 4.0-11.0 [facility] Comment on above: Performed By: #### C BCA, CMP, , 2776-04 ####[facility] ([id number])[address], [address] [address] COMPREHENSIVE METABOLIC PANE Kael 07-03-2024 Albumin [Mass/Vol] 4.2 g/dL Normal 3.2-5.3 [facility] Comment on above: Performed By: #### C BCA, CMP, , 2776-04 ####[facility] ([id number])[address], [address], [place] [address] ALP [Catalytic activity/Vol] 60 U/L Normal 39-130 [facility] Comment on above: Performed By: #### C BCA, CMP, , 2776-04 ####[facility] ([id number])[address] [address] [place] [address] ALT [Catalytic activity/Vol] 6 U/L Normal 0-31 [facility] Comment on above: Performed By: #### C BCA, CMP, , 2776-04 ####[facility] ([id number])[address], [address] [place] [address], [place] [address] Anion gap [Moles/Vol] 12 mmol/L Normal 5-15 [facility] Comment on above: Performed By: #### C BCA, CMP, , 2776- ####[facility] ([id number])[address], [address], [place] [address] AST [Catalytic activity/Vol] 9 U/L Normal 0-41 [facility] Comment on above: Performed By: #### C BCA, CMP, , 2776-04 ####[facility] ([id number])[address], [address], [place] [address] Bilirubin [Mass/Vol] 1.2 mg/dL Normal 0.3-1.2 [facility] Comment on above: Performed By: #### C BCA, CMP, , 2776-04 ####[facility] ([id number])[address], [address], [place] [address] Calcium [Mass/Vol] 9.8 mg/dL Normal 8.5-10.5 [facility] Comment on above: Performed By: #### C BCA, CMP, , 2776-04 ####[facility] ([id number])[address], [address], [place] [address] Chloride [Moles/Vol] 100 mmol/L Normal 98-109 [facility] Comment on above: Performed By: #### C BCA, CMP, , 2776-04 ####[facility] ([id number])[address], [address], [place] [address] CO2 [Moles/Vol] 24 mmol/L Normal 22-32 [facility] Comment on above: Performed By: #### C BCA, CMP, , 2776-04 ####[facility] ([id number])[address], [address], [place] [address] Creatinine [Mass/Vol] 2.02 mg/dL High 0.40-1.00 [facility] Comment on above: Result Comment: METH OD TRACEABLE TO IDMS STANDARD Performed By: #### C BCA, CMP, , 2776-04 ####[facility] ([id number])[address] [address] [address] GFR/1.73 sq M.predicted among non-blacks MDRD (S/P/Bld) [Vol rate/Area] 28 mL/min/{1.73_m2} Low >59 [facility] Comment on above: Result Comment: Repo rted eGFR is based on theCKD-EPI 2020 equation that doesnot use a race coefficient. Performed By: #### C EWELINA CMP, , 2776-04 ####[facility] ([id number])[address] [address], [place] [address] Glucose [Mass/Vol] 131 mg/dL High 65-99 [facility] Comment on above: Performed By: #### C EWELINA, CMP, , 2776-04 ####[facility] ([id number])[address] [address], [place] [address] Potassium [Moles/Vol] 4.5 mmol/L Normal 3.5-5.0 [facility] Comment on above: Performed By: #### C EWELINA, CMP, , 2776-04 ####[facility] ([id number])[address] [address], [place] [address] Protein [Mass/Vol] 7.4 g/dL Normal 6.0-8.0 [facility] Comment on above: Performed By: #### C BCA, CMP, , 2776-04 ####[facility] ([id number])[address], [address], [place] [address] Sodium [Moles/Vol] 136 mmol/L Normal 134-146 [facility] Comment on above: Performed By: #### C BCA, CMP, , 2776-04 ####[facility] ([id number])[address] [address], [place] [address] Urea nitrogen [Mass/Vol] 32 mg/dL High 5-27 [facility] Comment on above: Performed By: #### C RENA THEODORE, , 2776-04 ####[facility] ([id number])[address], [place] [address] IR [place] DIAL/CENT LINE > 5 YRSon 07-03-2024 IR [place] DIAL/CENT LINE > 5 YRS Normal [facility] MAGNESIUMon 07-03-2024 Magnesium [Mass/Vol] 2.1 mg/dL Normal 1.8-2.6 [facility] Comment on above: Performed By: #### C RENA THEODORE, , 2776-04 ####[facility] ([id number])[address], [address] [place] [address] PHOSPHORUSon 07-03-2024 Phosphate [Mass/Vol] 3.6 mg/dL Normal 2.4-4.9 [facility] Comment on above: Performed By: #### C RENA THEODORE, , 2776-04 ####[facility] ([id number])[address], [address] [place] [address] XR CHEST 1 VWon 07-03-2024 XR CHEST 1 VW Normal [facility] AFB CULTURE(CONCENTRATED)on 07-02-2024 Mycobacterium sp identified Org specific cx Nom (Unsp spec) AFB SMEAR NO ACID FAST BACILLI (CONCENTRATED SMEAR) CULTURE RESULTS NO ACID FAST BACILLI ISOLATED IN 8 WEEKS Normal [facility] Comment on above: Performed By: #### 5 43-9 ####[facility] ([id number])[address], [address] [place] [address] ARTERIAL BLOOD GASon 025 ROBERT'S TEST Normal [facility] Comment on above: Performed By: #### A BG ####[facility] ([id number])[address] [place] [address] BASE,DEFICIT 4.0 MMOL/L High 0.0-2.0 [facility] Comment on above: Performed By: #### A BG ####[facility] ([id number])[address] [facility] [place] [address] Body temperature 98.6 [degF] Normal 37.0 [facility] Comment on above: Performed By: #### A BG ####[facility] ([id number])[address] [facility] [place] [address] HCO3 (Bld) [Moles/Vol] 23.2 mmol/L Normal 22-26 [facility] Comment on above: Performed By: #### A BG ####[facility] ([id number])[address] [facility] [address] INSP. O2 CONC. 28 % Normal [facility] Comment on above: Performed By: #### A BG ####[facility] ([id number])[address] [place] [address] Oxygen (Bld) [Partial pressure] 66 mm[Hg] Low 80-100 [facility] Comment on above: Performed By: #### A BG ####[facility] ([id number])[address] [place] [address] Oxygen saturation in Blood 89.0 % Low >90 [facility] Comment on above: Performed By: #### A BG ####[facility] ([id number])[address] [place] [address] OXYGEN SOURCE NPPV Normal [facility] Comment on above: Performed By: #### A BG ####[facility] ([id number])[address] [facility] [place] [address] PCO2 52.7 MMHG High 35-45 [facility] Comment on above: Performed By: #### A BG ####[facility] ([id number])[address] [place] [address] pH (Bld) 7.252 [pH] Low 7.350-7.45 0 [facility] Comment on above: Performed By: #### A BG ####[facility] ([id number])[address] [place] [address] SAMPLE SITE RRad Normal [facility] Comment on above: Performed By: #### A BG ####[facility] ([id number])[address] [place] [address] SAMPLE TYPE ARTERIAL Normal [facility] Comment on above: Performed By: #### A BG ####[facility] ([id number])[address] [place] [address] AND DIFFon 2024 BODY FLUID COMMENT Interpreta tion- ------- Normal [facility] Comment on above: Result Comment: Refe rence values for this fluid type areundefined, as fluid accumulation isconsidered abnormal.Assorted lining cells present.Corrected on 07/03 AT 0544: Previously reported as Interpretation Reference values for this fluid type are undefined, as fluid accumulation is considered abnormal. Performed By: #### B FCT ####[facility] ([id number])[address], [address] [place] [address] FLUID CLARITY HAZY Normal [facility] Comment on above: Performed By: #### B FCT ####[facility] ([id number])[address] [address] FLUID COLOR YELLOW Normal [facility] Comment on above: Performed By: #### B FCT ####[facility] ([id number])[address] [place] [address] FLUID LYMPHOCYTE 3 % Normal [facility] Comment on above: Performed By: #### B FCT ####[facility] ([id number])[address] [place] [address] FLUID NEUTROPHILS 18 % Normal [facility] Comment on above: Performed By: #### B FCT ####[facility] ([id number])[address] [place] [address] 220 /uL Normal [facility] Comment on above: Performed By: #### B FCT ####[facility] ([id number])[address] [place] [address] FLUID SPECIMEN TYPE BRONCHOALVEOLAR LAVAGE Normal [facility] Comment on above: Result Comment: LEFT LUNG, LOWER LOBE Performed By: #### B FCT ####[facility] ([id number])[address], [place] [address] MACROPHAGES 79 % Normal [facility] Comment on above: Performed By: #### B FCT ####[facility] ([id number])[address] [address] 76 /uL Normal [facility] Comment on above: Performed By: #### B FCT ####[facility] ([id number])[address], [place] [address] CBC AND AUTO DIFFon 03-25-20 25 ABSOLUTE BASOPHIL 0.0 X10E9/L Normal 0.0-0.2 [facility] Comment on above: Performed By: #### C BCA, CMP, 18997-5, 2777-1 ####[facility] ([id number])[address] [place] [address] ABSOLUTE NEUTROPHIL 4.2 X10E9/L Normal 1.5-6.6 [facility] Comment on above: Performed By: #### C BCA, CMP, 81344-9, 2777-1 ####[facility] ([id number])[address], [place] [address] Basophils/100 WBC (Bld) 0.6 % Normal [facility] Comment on above: Performed By: #### C BCA, CMP, , 2776-04 ####[facility] ([id number])[address] [place] [address] Eosinophils (Bld) [#/Vol] 0.9 10*3/uL High 0.0-0.4 [facility] Comment on above: Performed By: #### C BCA, CMP, , 2776-04 ####[facility] ([id number])[address] [place] [address] Eosinophils/100 WBC (Bld) 12.5 % Normal [facility] Comment on above: Performed By: #### C BCA, CMP, , 2776-04 ####[facility] ([id number])[address] [place] [address] Erythrocyte distribution width (RBC) [Ratio] 17.8 % High 11.5-15.0 [facility] Comment on above: Performed By: #### C BCA, CMP, , 2776-04 ####[facility] ([id number])[address] [place] [address] Hematocrit (Bld) [Volume fraction] 23.1 % Low 35-47 [facility] Comment on above: Performed By: #### C BCA, CMP, , 2776-04 ####[facility] ([id number])[address] [place] [address] Hemoglobin (Bld) [Mass/Vol] 7.6 g/dL Low 11.7-15.5 [facility] Comment on above: Performed By: #### C BCA, CMP, , 2777-1 ####[facility] ([id number])[address] [address] [place] [address] Lymphocytes (Bld) [#/Vol] 1.2 10*3/uL Normal 1.0-3.5 [facility] Comment on above: Performed By: #### C BCA, CMP, , 2776-04 ####[facility] ([id number])[address] [address] [place] [address] Lymphocytes/100 WBC (Bld) 16.4 % Normal [facility] Comment on above: Performed By: #### C EWELINA, CMP, , 2776-04 ####[facility] ([id number])[address] [address] MCH (RBC) [Entitic mass] 31.4 pg Normal 27-34 [facility] Comment on above: Performed By: #### C BCA, CMP, , 2776-04 ####[facility] ([id number])[address] [address] MCHC (RBC) [Mass/Vol] 32.8 g/dL Normal 32-36 [facility] Comment on above: Performed By: #### C BCA, CMP, , 2776-04 ####[facility] ([id number])[address] [address] MCV (RBC) [Entitic vol] 96 fL Normal 80-100 [facility] Comment on above: Performed By: #### C BCA, CMP, , 2776-04 ####[facility] ([id number])[address] [address] Monocytes (Bld) [#/Vol] 0.7 10*3/uL Normal 0-0.9 [facility] Comment on above: Performed By: #### C BCA, CMP, , 2776-04 ####[facility] ([id number])[address] [place] [address] Monocytes/100 WBC (Bld) 10.4 % Normal [facility] Comment on above: Performed By: #### C BCA, CMP, , 2776-04 ####[facility] ([id number])[address], [address] [place] [address] Neutrophils/100 WBC (Bld) 60.1 % Normal [facility] Comment on above: Performed By: #### C BCA, CMP, , 2776-04 ####[facility] ([id number])[address], [address] [address] Platelet mean volume (Bld) [Entitic vol] 7.0 fL Normal 7-12 [facility] Comment on above: Performed By: #### C BCA, CMP, , 2776-04 ####[facility] ([id number])[address], [address], [place] [address] Platelets (Bld) [#/Vol] 376 10*3/uL Normal 150-450 [facility] Comment on above: Performed By: #### C BCA, CMP, , 2776-04 ####[facility] ([id number])[address], [address] [place] [address] RBC COUNT 2.42 X10E12/L Low 3.80-5.20 [facility] Comment on above: Performed By: #### C BCA, CMP, , 2776-04 ####[facility] ([id number])[address], [address] [place] [address] WBC (Bld) [#/Vol] 7.1 10*3/uL Normal 4.0-11.0 [facility] Comment on above: Performed By: #### C BCA, CMP, , 2776-04 ####[facility] ([id number])[address], [address], [place] [address] COMPREHENSIVE METABOLIC PANE Kael 07-02-2024 Albumin [Mass/Vol] 3.7 g/dL Normal 3.2-5.3 [facility] Comment on above: Performed By: #### C BCA, CMP, , 2776- ####[facility] ([id number])[address], [address], [place] [address] ALP [Catalytic activity/Vol] 56 U/L Normal 39-130 [facility] Comment on above: Performed By: #### C BCA, CMP, , 2776-04 ####[facility] ([id number])[address], [address], [place] [address] ALT [Catalytic activity/Vol] 5 U/L Normal 0-31 [facility] Comment on above: Performed By: #### C BCA, CMP, , 2776-04 ####[facility] ([id number])[address], [address], [place] [address] Anion gap [Moles/Vol] 14 mmol/L Normal 5-15 [facility] Comment on above: Performed By: #### C BCA, CMP, , 2776-04 ####[facility] ([id number])[address], [address], [place] [address] AST [Catalytic activity/Vol] 8 U/L Normal 0-41 [facility] Comment on above: Performed By: #### C BCA, CMP, , 2776-04 ####[facility] ([id number])[address], [address], [place] [address] Bilirubin [Mass/Vol] 1.0 mg/dL Normal 0.3-1.2 [facility] Comment on above: Performed By: #### C BCA, CMP, , 2776-04 ####[facility] ([id number])[address], [address] [address] Calcium [Mass/Vol] 10.5 mg/dL Normal 8.5-10.5 [facility] Comment on above: Performed By: #### C BCA, CMP, , 2776-04 ####[facility] ([id number])[address], [address] [place] [address] Chloride [Moles/Vol] 105 mmol/L Normal 98-109 [facility] Comment on above: Performed By: #### C BCA, CMP, , 2776-04 ####[facility] ([id number])[address] [address] [address] CO2 [Moles/Vol] 25 mmol/L Normal 22-32 [facility] Comment on above: Performed By: #### C BCA, CMP, , 2776-04 ####[facility] ([id number])[address] [address], [place] [address] Creatinine [Mass/Vol] 4.12 mg/dL High 0.40-1.00 [facility] Comment on above: Result Comment: METH OD TRACEABLE TO IDMS STANDARD Performed By: #### C BCA, CMP, , 2776-04 ####[facility] ([id number])[address] [address] [address] GFR/1.73 sq M.predicted among non-blacks MDRD (S/P/Bld) [Vol rate/Area] 12 mL/min/{1.73_m2} Low >59 [facility] Comment on above: Result Comment: Repo rted eGFR is based on theCKD-EPI 2020 equation that doesnot use a race coefficient. Performed By: #### C BCA, CMP, , 2776-04 ####[facility] ([id number])[address], [address], [place] [address] Glucose [Mass/Vol] 92 mg/dL Normal 65-99 [facility] Comment on above: Performed By: #### C BCA, CMP, , 2776-04 ####[facility] ([id number])[address], [address] [place] [address] Potassium [Moles/Vol] 3.8 mmol/L Normal 3.5-5.0 [facility] Comment on above: Performed By: #### C BCA, CMP, , 2776-04 ####[facility] ([id number])[address], [address] [place] [address] Protein [Mass/Vol] 6.7 g/dL Normal 6.0-8.0 [facility] Comment on above: Performed By: #### C BCA, CMP, , 2776-04 ####[facility] ([id number])[address], [address] [place] [address] Sodium [Moles/Vol] 144 mmol/L Normal 134-146 [facility] Comment on above: Performed By: #### C BCA, CMP, , 2776-04 ####[facility] ([id number])[address], [address] [place] [address] Urea nitrogen [Mass/Vol] 80 mg/dL High 5-27 [facility] Comment on above: Performed By: #### C BCA, CMP, , 2776-04 ####[facility] ([id number])[address], [address], [place] [address] Cytologyon 07-02-2024 Cytology Normal [facility] Comment on above: Result Comment: [facility] [address] [place], [place] [address] Cytology ConsultationPatient Name:ORESTES ALVARES:1965 (Age: 59)Gender:FTaken:07/02/2024Reported:07/03/2024 16:31Physician(s):Quintin Forman M.D. ([phone])Copy To: Rec. #:[id number]: #[id number] Cytologic DiagnosisLung, left lower lobe, bronchoalveolar lavage:No malignant cells identified.ao/07/03/2024[place] [address], License number: [id number].Electronically Signed Out By Earl Boone MDClinical HistoryMucus plug in respiratory tract [T17.998A]. Acute hypoxic respiratory failure ([facility]) [J96.01].Gross DescriptionReceived was 5ml of clear colorless fluid unfixed labeled as [place], lung, left lower lobe, BAL . CytoLyt added in lab. Unable to obtain cellblock, ThinPrep made.Source of Specimen Lung, left lower lobe, bronchoalveolar lavage Non ROOM ATTENDANT ThinPrepFee Code(s):1; 25849 FUNGAL CULTUREon 07-02-2024 Fungus identified Cx Nom (Unsp spec) FUNGAL SMEAR NO FUNGAL ELEMENTS SEEN ON DIRECT SMEAR CULTURE RESULTS MABLE ALBICANS Abnormal [facility] Comment on above: Performed By: #### 5 80-1 ####[facility] ([id number])[address] [place] [address], [address] [place] [address] LOWER RESPIRATORY CULTUREon 07-02-2024 Bacteria identified Respiratory culture Nom (Sput) Susceptible [facility] Comment on above: Performed By: #### 6 24-7 ####[facility] ([id number])[address] [place] [address], [address] [place] [address] MAGNESIUMon 07-02-2024 Magnesium [Mass/Vol] 1.9 mg/dL Normal 1.8-2.6 [facility] Comment on above: Performed By: #### C EWELINA, [facility], [address]-6, 2777-1 ####[facility] ([id number])[address], [address] [place] [address] Magnesium Ionized ISE (Bld) [Moles/Vol]on 07-02-2024 Magnesium [Moles/Vol] 0.71 mmol/L Normal 0.45-0.74 [facility] Comment on above: Result Comment: NEW REFERENCE RANGE Performed By: #### 7 3572-0 ####[facility] ([id number])[address], [address] [place] [address] PHOSPHORUSon 07-02-2024 Phosphate [Mass/Vol] 5.2 mg/dL High 2.4-4.9 [facility] Comment on above: Performed By: #### C EWELINA [facility], , 2777 ####[facility] ([id number])[address], [address] [place] [address] POTASSIUMon 07-02-2024 Potassium [Moles/Vol] 4.2 mmol/L Normal 3.5-5.0 [facility] Comment on above: Performed By: #### 2 823-3 ####[facility] ([id number])[address], [address] [place] [address] PROTIME AND INRon 07-02-2024 INR Coag (PPP) [Relative time] 1.2 {INR} Normal 0.9-1.2 [facility] Comment on above: Performed By: #### P INR ####[facility] ([id number])[address], [address] [address] PT Coag (PPP) [Time] 13.5 s High 9.8-13.2 [facility] Comment on above: Performed By: #### P INR ####[facility] ([id number])[address], [address] [place] [address] XR CHEST 1 VWon 07-02-2024 XR CHEST 1 VW Normal [facility] XR CHEST 1 VW Normal [facility] CBC AND AUTO DIFFon 07-02-19 ABSOLUTE BASOPHIL 0.1 X10E9/L Normal 0.0-0.2 [facility] Comment on above: Performed By: #### C BCA, CMP, , 2776-04 ####[facility] ([id number])[address], [address], [place] [address] ABSOLUTE NEUTROPHIL 3.9 X10E9/L Normal 1.5-6.6 [facility] Comment on above: Performed By: #### C BCA, CMP, , 2776-04 ####[facility] ([id number])[address], [address] [address] Basophils/100 WBC (Bld) 2.0 % Normal [facility] Comment on above: Performed By: #### C BCA, CMP, , 2776-04 ####[facility] ([id number])[address], [address], [place] [address] Eosinophils (Bld) [#/Vol] 1.0 10*3/uL High 0.0-0.4 [facility] Comment on above: Performed By: #### C BCA, CMP, , 2776-04 ####[facility] ([id number])[address], [address], [place] [address] Eosinophils/100 WBC (Bld) 14.0 % Normal [facility] Comment on above: Performed By: #### C BCA, CMP, , 2776-04 ####[facility] ([id number])[address], [address] [place] [address] Erythrocyte distribution width (RBC) [Ratio] 17.8 % High 11.5-15.0 [facility] Comment on above: Performed By: #### C EWELINA CMP, , 2776-04 ####[facility] ([id number])[address], [address] [address] Hematocrit (Bld) [Volume fraction] 23.7 % Low 35-47 [facility] Comment on above: Performed By: #### Bertha THEODORE CMP, , 2776-04 ####[facility] ([id number])[address], [address], [place] [address] Hemoglobin (Bld) [Mass/Vol] 7.7 g/dL Low 11.7-15.5 [facility] Comment on above: Performed By: #### Bertha THEODORE CMP, , 2776-04 ####[facility] ([id number])[address] [address], [place] [address] Lymphocytes (Bld) [#/Vol] 1.4 10*3/uL Normal 1.0-3.5 [facility] Comment on above: Performed By: #### Bertha THEODORE, CMP, , 2776-04 ####[facility] ([id number])[address] [address] [address] Lymphocytes/100 WBC (Bld) 19.6 % Normal [facility] Comment on above: Performed By: #### Bertha BCA, CMP, , 2776-04 ####[facility] ([id number])[address], [address] [place] [address] MCH (RBC) [Entitic mass] 31.1 pg Normal 27-34 [facility] Comment on above: Performed By: #### Bertha THEODORE, CMP, , 2776-04 ####[facility] ([id number])[address], [address], [place] [address] MCHC (RBC) [Mass/Vol] 32.5 g/dL Normal 32-36 [facility] Comment on above: Performed By: #### C EWELINA, CMP, , 2776-04 ####[facility] ([id number])[address], [address], [place] [address] MCV (RBC) [Entitic vol] 96 fL Normal 80-100 [facility] Comment on above: Performed By: #### C BCA, CMP, , 2776-04 ####[facility] ([id number])[address], [address], [place] [address] Monocytes (Bld) [#/Vol] 0.6 10*3/uL Normal 0-0.9 [facility] Comment on above: Performed By: #### Bertha THEODORE, CMP, , 2776-04 ####[facility] ([id number])[address], [address] [address] Monocytes/100 WBC (Bld) 8.8 % Normal [facility] Comment on above: Performed By: #### Bertha BCA, CMP, , 2776-04 ####[facility] ([id number])[address] [address], [place] [address] Neutrophils/100 WBC (Bld) 55.6 % Normal [facility] Comment on above: Performed By: #### Bertha BCA, CMP, , 2776-04 ####[facility] ([id number])[address], [address], [place] [address] Platelet mean volume (Bld) [Entitic vol] 6.9 fL Low 7-12 [facility] Comment on above: Performed By: #### C BCA, CMP, , 2776-04 ####[facility] ([id number])[address], [address], [place] [address] Platelets (Bld) [#/Vol] 417 10*3/uL Normal 150-450 [facility] Comment on above: Performed By: #### C BCA, CMP, , 2776-04 ####[facility] ([id number])[address], [address], [place] [address] RBC COUNT 2.47 X10E12/L Low 3.80-5.20 [facility] Comment on above: Performed By: #### C BCA, CMP, , 2776-04 ####[facility] ([id number])[address] [address] WBC (Bld) [#/Vol] 7.1 10*3/uL Normal 4.0-11.0 [facility] Comment on above: Performed By: #### C BCA, CMP, , 2776-04 ####[facility] ([id number])[address] [address] [place] [address] COMPREHENSIVE METABOLIC PANE Kael 07-01-2024 Albumin [Mass/Vol] 3.7 g/dL Normal 3.2-5.3 [facility] Comment on above: Performed By: #### C BCA, CMP, , 2776-04 ####[facility] ([id number])[address] [address] [place] [address] ALP [Catalytic activity/Vol] 61 U/L Normal 39-130 [facility] Comment on above: Performed By: #### C BCA, CMP, , 2776-04 ####[facility] ([id number])[address] [address] ALT [Catalytic activity/Vol] 4 U/L Normal 0-31 [facility] Comment on above: Performed By: #### C BCA, CMP, , 2776-04 ####[facility] ([id number])[address], [address], [place] [address] Anion gap [Moles/Vol] 16 mmol/L High 5-15 [facility] Comment on above: Performed By: #### C BCA, CMP, , 2776-04 ####[facility] ([id number])[address], [address], [place] [address] AST [Catalytic activity/Vol] 10 U/L Normal 0-41 [facility] Comment on above: Performed By: #### C BCA, CMP, , 2776-04 ####[facility] ([id number])[address], [address], [place] [address] Bilirubin [Mass/Vol] 1.1 mg/dL Normal 0.3-1.2 [facility] Comment on above: Performed By: #### C BCA, CMP, , 2776-04 ####[facility] ([id number])[address], [address], [place] [address] Calcium [Mass/Vol] 10.6 mg/dL High 8.5-10.5 [facility] Comment on above: Performed By: #### C BCA, CMP, , 2776-04 ####[facility] ([id number])[address], [address], [place] [address] Chloride [Moles/Vol] 106 mmol/L Normal 98-109 [facility] Comment on above: Performed By: #### C BCA, CMP, , 2776-04 ####[facility] ([id number])[address], [address], [place] [address] CO2 [Moles/Vol] 22 mmol/L Normal 22-32 [facility] Comment on above: Performed By: #### C BCA, CMP, , 2776-04 ####[facility] ([id number])[address] [address] [address] Creatinine [Mass/Vol] 3.99 mg/dL High 0.40-1.00 [facility] Comment on above: Result Comment: METH OD TRACEABLE TO IDMS STANDARD Performed By: #### C EWELINA CMP, , 2776-04 ####[facility] ([id number])[address] [address] [address] GFR/1.73 sq M.predicted among non-blacks MDRD (S/P/Bld) [Vol rate/Area] 12 mL/min/{1.73_m2} Low >59 [facility] Comment on above: Result Comment: Repo rted eGFR is based on theCKD-EPI 2020 equation that doesnot use a race coefficient. Performed By: #### C BCA, CMP, , 2776-04 ####[facility] ([id number])[address] [address], [place] [address] Glucose [Mass/Vol] 76 mg/dL Normal 65-99 [facility] Comment on above: Performed By: #### C BCA, CMP, , 2776-04 ####[facility] ([id number])[address] [address] Potassium [Moles/Vol] 4.0 mmol/L Normal 3.5-5.0 [facility] Comment on above: Performed By: #### C BCA, CMP, , 2776-04 ####[facility] ([id number])[address] [address], [place] [address] Protein [Mass/Vol] 6.9 g/dL Normal 6.0-8.0 [facility] Comment on above: Performed By: #### C BCA, CMP, , 2776-04 ####[facility] ([id number])[address] [place] [address] Sodium [Moles/Vol] 144 mmol/L Normal 134-146 [facility] Comment on above: Performed By: #### C EWELINA CMP, , 2776-04 ####[facility] ([id number])[address] [address] Urea nitrogen [Mass/Vol] 83 mg/dL High 5-27 [facility] Comment on above: Performed By: #### C EWELINA, [facility], , 2776-04 ####[facility] ([id number])[address] [address] [place] [address] Calcium.ionized (Bld) [Mass/ Vol]on 07-01-2024 IONIZED CALCIUM 5.6 mg/dL High 4.5-5.3 [facility] Comment on above: Performed By: #### 3 8230-9, 32809-4 ####[facility] ([id number])[address] [address], [place] [address] FL SWALLOW MOTILITY FUNCTION on 07-01-2024 FL SWALLOW MOTILITY FUNCTION Normal [facility] MAGNESIUMon 07-01-2024 Magnesium [Mass/Vol] 2.1 mg/dL Normal 1.8-2.6 [facility] Comment on above: Performed By: #### C EWELINA, [facility], , 2776-04 ####[facility] ([id number])[address] [address] [place] [address] Magnesium Ionized ISE (Bld) [Moles/Vol]on 07-01-2024 Magnesium [Moles/Vol] 0.48 mmol/L Normal 0.45-0.74 [facility] Comment on above: Result Comment: NEW REFERENCE RANGE Performed By: #### 3 8230-9, 21016-4 ####[facility] ([id number])[address], [place] [address] PHOSPHORUSon 07-01-2024 Phosphate [Mass/Vol] 5.3 mg/dL High 2.4-4.9 [facility] Comment on above: Performed By: #### C BCA, CMP, , 2776-04 ####[facility] ([id number])[address] [place] [address] XR CHEST 1 VWon 07-01-2024 XR CHEST 1 VW Normal [facility] CBC AND AUTO DIFFon 07-01-19 25 ABSOLUTE BASOPHIL 0.1 X10E9/L Normal 0.0-0.2 [facility] Comment on above: Performed By: #### C BCA, CMP, , 2776-04 ####[facility] ([id number])[address] [place] [address] ABSOLUTE NEUTROPHIL 3.9 X10E9/L Normal 1.5-6.6 [facility] Comment on above: Performed By: #### C BCA, CMP, , 2776-04 ####[facility] ([id number])[address] [address] Basophils/100 WBC (Bld) 0.8 % Normal [facility] Comment on above: Performed By: #### C BCA, CMP, , 2776-04 ####[facility] ([id number])[address] [place] [address] Eosinophils (Bld) [#/Vol] 0.9 10*3/uL High 0.0-0.4 [facility] Comment on above: Performed By: #### C BCA, CMP, , 2776-04 ####[facility] ([id number])[address] [place] [address] Eosinophils/100 WBC (Bld) 13.3 % Normal [facility] Comment on above: Performed By: #### C BCA, CMP, , 2776-04 ####[facility] ([id number])[address] [address], [place] [address] Erythrocyte distribution width (RBC) [Ratio] 18.3 % High 11.5-15.0 [facility] Comment on above: Performed By: #### C BCA, CMP, , 2776-04 ####[facility] ([id number])[address] [address], [place] [address] Hematocrit (Bld) [Volume fraction] 22.7 % Low 35-47 [facility] Comment on above: Performed By: #### C EWELINA, CMP, , 2776-04 ####[facility] ([id number])[address] [address], [place] [address] Hemoglobin (Bld) [Mass/Vol] 7.5 g/dL Low 11.7-15.5 [facility] Comment on above: Performed By: #### C EWELINA, [facility], , 2776-04 ####[facility] ([id number])[address] [address] [address] Lymphocytes (Bld) [#/Vol] 1.2 10*3/uL Normal 1.0-3.5 [facility] Comment on above: Performed By: #### C BCA, CMP, , 2776-04 ####[facility] ([id number])[address] [address], [place] [address] Lymphocytes/100 WBC (Bld) 18.2 % Normal [facility] Comment on above: Performed By: #### C BCA, CMP, , 2776-04 ####[facility] ([id number])[address] [address], [place] [address] MCH (RBC) [Entitic mass] 31.5 pg Normal 27-34 [facility] Comment on above: Performed By: #### C EWELINA, CMP, , 2776-04 ####[facility] ([id number])[address], [place] [address] MCHC (RBC) [Mass/Vol] 32.9 g/dL Normal 32-36 [facility] Comment on above: Performed By: #### C EWELINA, CMP, , 2776-04 ####[facility] ([id number])[address] [place] [address] MCV (RBC) [Entitic vol] 96 fL Normal 80-100 [facility] Comment on above: Performed By: #### Bertha THEODORE, CMP, , 2776-04 ####[facility] ([id number])[address] [place] [address] Monocytes (Bld) [#/Vol] 0.8 10*3/uL Normal 0-0.9 [facility] Comment on above: Performed By: #### C EWELINA CMP, , 2776-04 ####[facility] ([id number])[address] [place] [address] Monocytes/100 WBC (Bld) 11.2 % Normal [facility] Comment on above: Performed By: #### Bertha THEODORE, CMP, , 2776-04 ####[facility] ([id number])[address], [address] [place] [address] Neutrophils/100 WBC (Bld) 56.5 % Normal [facility] Comment on above: Performed By: #### Bertha THEODORE, CMP, , 2776-04 ####[facility] ([id number])[address], [address] [address] Platelet mean volume (Bld) [Entitic vol] 6.8 fL Low 7-12 [facility] Comment on above: Performed By: #### C BCA, CMP, 50559-6, 2776- ####[facility] ([id number])[address], [address] [place] [address] Platelets (Bld) [#/Vol] 443 10*3/uL Normal 150-450 [facility] Comment on above: Performed By: #### C BCA, CMP, , 2776- ####[facility] ([id number])[address], [address] [address] RBC COUNT 2.37 X10E12/L Low 3.80-5.20 [facility] Comment on above: Performed By: #### C BCA, CMP, , 2776- ####[facility] ([id number])[address] [address] [place] [address] WBC (Bld) [#/Vol] 6.9 10*3/uL Normal 4.0-11.0 [facility] Comment on above: Performed By: #### C BCA, CMP, , 2776- ####[facility] ([id number])[address], [address] [place] [address], [place] [address] COMPREHENSIVE METABOLIC PANE Kael 06-30-2024 Albumin [Mass/Vol] 3.9 g/dL Normal 3.2-5.3 [facility] Comment on above: Performed By: #### C BCA, CMP, , 2776- ####[facility] ([id number])[address], [address] [place] [address] ALP [Catalytic activity/Vol] 60 U/L Normal 39-130 [facility] Comment on above: Performed By: #### C BCA, CMP, 88995-1, 2776-1 ####[facility] ([id number])[address], [address], [place] [address] ALT [Catalytic activity/Vol] 5 U/L Normal 0-31 [facility] Comment on above: Performed By: #### C BCA, CMP, , 2776-04 ####[facility] ([id number])[address], [address], [place] [address] Anion gap [Moles/Vol] 13 mmol/L Normal 5-15 [facility] Comment on above: Performed By: #### C BCA, CMP, , 2776-04 ####[facility] ([id number])[address], [address], [place] [address] AST [Catalytic activity/Vol] 11 U/L Normal 0-41 [facility] Comment on above: Performed By: #### C BCA, CMP, , 2776-04 ####[facility] ([id number])[address], [address], [place] [address] Bilirubin [Mass/Vol] 1.0 mg/dL Normal 0.3-1.2 [facility] Comment on above: Performed By: #### C BCA, CMP, , 2776-04 ####[facility] ([id number])[address], [address], [place] [address] Calcium [Mass/Vol] 10.5 mg/dL Normal 8.5-10.5 [facility] Comment on above: Performed By: #### C BCA, CMP, , 2776-04 ####[facility] ([id number])[address], [address], [place] [address] Chloride [Moles/Vol] 103 mmol/L Normal 98-109 [facility] Comment on above: Performed By: #### C BCA, CMP, , 2776-04 ####[facility] ([id number])[address], [address], [place] [address] CO2 [Moles/Vol] 25 mmol/L Normal 22-32 [facility] Comment on above: Performed By: #### C RENA THEODORE, , 2776-04 ####[facility] ([id number])[address], [address] [address] Creatinine [Mass/Vol] 3.76 mg/dL High 0.40-1.00 [facility] Comment on above: Result Comment: METH OD TRACEABLE TO IDMS STANDARD Performed By: #### C RENA THEODORE, , 2776-04 ####[facility] ([id number])[address] [address] [address] GFR/1.73 sq M.predicted among non-blacks MDRD (S/P/Bld) [Vol rate/Area] 13 mL/min/{1.73_m2} Low >59 [facility] Comment on above: Result Comment: Repo rted eGFR is based on theCKD-EPI 2020 equation that doesnot use a race coefficient. Performed By: #### C RENA THEODORE, , 2776-04 ####[facility] ([id number])[address] [address], [place] [address] Glucose [Mass/Vol] 90 mg/dL Normal 65-99 [facility] Comment on above: Performed By: #### C RENA THEODORE, , 2776-04 ####[facility] ([id number])[address] [address], [place] [address] Potassium [Moles/Vol] 3.8 mmol/L Normal 3.5-5.0 [facility] Comment on above: Performed By: #### C EWELINA CMP, , 2776-04 ####[facility] ([id number])[address] [address] [place] [address] Protein [Mass/Vol] 7.1 g/dL Normal 6.0-8.0 [facility] Comment on above: Performed By: #### C EWELINA, [facility], , 2776-04 ####[facility] ([id number])[address], [address], [place] [address] Sodium [Moles/Vol] 141 mmol/L Normal 134-146 [facility] Comment on above: Performed By: #### C EWELINA, [facility], , 2776-04 ####[facility] ([id number])[address], [address] [place] [address] Urea nitrogen [Mass/Vol] 84 mg/dL High 5-27 [facility] Comment on above: Performed By: #### C EWELINA, [facility], , 2776-04 ####[facility] ([id number])[address], [address] [place] [address] MAGNESIUMon 06-30-2024 Magnesium [Mass/Vol] 2.2 mg/dL Normal 1.8-2.6 [facility] Comment on above: Performed By: #### C EWELINA, [facility], , 2776-04 ####[facility] ([id number])[address], [address] [address] PHOSPHORUSon 06-30-2024 Phosphate [Mass/Vol] 5.2 mg/dL High 2.4-4.9 [facility] Comment on above: Performed By: #### C BCA, CMP, , 2776-04 ####[facility] ([id number])[address], [address], [place] [address] POTASSIUMon 06-30-2024 Potassium [Moles/Vol] 4.6 mmol/L Normal 3.5-5.0 [facility] Comment on above: Performed By: #### 2 823-3 ####[facility] ([id number])[address], [address], [place] [address] XR CHEST 1 VWon 06-30-2024 XR CHEST 1 VW Normal [facility] CBC AND AUTO DIFFon 06-30-19 ABSOLUTE BASOPHIL 0.1 X10E9/L Normal 0.0-0.2 [facility] Comment on above: Performed By: #### C EWELINA, [facility], , 2776-04 ####[facility] ([id number])[address], [address] [place] [address] ABSOLUTE NEUTROPHIL 4.3 X10E9/L Normal 1.5-6.6 [facility] Comment on above: Performed By: #### C EWELINA, [facility], , 2776-04 ####[facility] ([id number])[address] [address] [place] [address] Basophils/100 WBC (Bld) 0.7 % Normal [facility] Comment on above: Performed By: #### Bertha THEODORE, [facility], , 2776-04 ####[facility] ([id number])[address] [address] [place] [address] Eosinophils (Bld) [#/Vol] 0.9 10*3/uL High 0.0-0.4 [facility] Comment on above: Performed By: #### C EWELINA, CMP, , 2776-04 ####[facility] ([id number])[address] [address] [place] [address] Eosinophils/100 WBC (Bld) 12.6 % Normal [facility] Comment on above: Performed By: #### Bertha BCA, CMP, , 2776-04 ####[facility] ([id number])[address] [address] [place] [address] Erythrocyte distribution width (RBC) [Ratio] 17.5 % High 11.5-15.0 [facility] Comment on above: Performed By: #### C EWELINA CMP, , 2776-04 ####[facility] ([id number])[address] [address] Hematocrit (Bld) [Volume fraction] 21.9 % Low 35-47 [facility] Comment on above: Performed By: #### C EWELINA, [facility], , 2776-04 ####[facility] ([id number])[address] [address] Hemoglobin (Bld) [Mass/Vol] 7.4 g/dL Low 11.7-15.5 [facility] Comment on above: Performed By: #### C EWELINA, [facility], , 2776-04 ####[facility] ([id number])[address] [address] Lymphocytes (Bld) [#/Vol] 1.4 10*3/uL Normal 1.0-3.5 [facility] Comment on above: Performed By: #### C EWELINA, [facility], , 2776-04 ####[facility] ([id number])[address] [address] Lymphocytes/100 WBC (Bld) 18.9 % Normal [facility] Comment on above: Performed By: #### C EWELINA, [facility], , 2776-04 ####[facility] ([id number])[address] [address] MCH (RBC) [Entitic mass] 32.0 pg Normal 27-34 [facility] Comment on above: Performed By: #### C EWELINA, CMP, , 2776-04 ####[facility] ([id number])[address] [address] MCHC (RBC) [Mass/Vol] 33.6 g/dL Normal 32-36 [facility] Comment on above: Performed By: #### C EWELINA, CMP, , 2776-04 ####[facility] ([id number])[address], [address], [place] [address] MCV (RBC) [Entitic vol] 95 fL Normal 80-100 [facility] Comment on above: Performed By: #### C BCA, CMP, , 2776-04 ####[facility] ([id number])[address], [address] [address] Monocytes (Bld) [#/Vol] 0.7 10*3/uL Normal 0-0.9 [facility] Comment on above: Performed By: #### C EWELINA, CMP, , 2776-04 ####[facility] ([id number])[address], [address] [address] Monocytes/100 WBC (Bld) 9.5 % Normal [facility] Comment on above: Performed By: #### Bertha THEODORE, CMP, , 2776-04 ####[facility] ([id number])[address], [address], [place] [address] Neutrophils/100 WBC (Bld) 58.3 % Normal [facility] Comment on above: Performed By: #### Bertha BCA, CMP, , 2776-04 ####[facility] ([id number])[address], [address], [place] [address] Platelet mean volume (Bld) [Entitic vol] 6.8 fL Low 7-12 [facility] Comment on above: Performed By: #### C BCA, CMP, , 2776-04 ####[facility] ([id number])[address], [address], [place] [address] Platelets (Bld) [#/Vol] 458 10*3/uL High 150-450 [facility] Comment on above: Performed By: #### C BCA, CMP, , 2776- ####[facility] ([id number])[address], [address] [place] [address] RBC COUNT 2.30 X10E12/L Low 3.80-5.20 [facility] Comment on above: Performed By: #### C BCA, CMP, , 2776- ####[facility] ([id number])[address], [address], [place] [address] WBC (Bld) [#/Vol] 7.3 10*3/uL Normal 4.0-11.0 [facility] Comment on above: Performed By: #### C BCA, CMP, , 2776-04 ####[facility] ([id number])[address], [address] [place] [address] COMPREHENSIVE METABOLIC PANE Kael 06-29-2024 Albumin [Mass/Vol] 3.8 g/dL Normal 3.2-5.3 [facility] Comment on above: Performed By: #### C BCA, CMP, , 2776-04 ####[facility] ([id number])[address] [address], [place] [address] ALP [Catalytic activity/Vol] 66 U/L Normal 39-130 [facility] Comment on above: Performed By: #### C BCA, CMP, , 2776-04 ####[facility] ([id number])[address] [address] [place] [address] ALT [Catalytic activity/Vol] 5 U/L Normal 0-31 [facility] Comment on above: Performed By: #### C BCA, CMP, , 2776- ####[facility] ([id number])[address], [address], [place] [address] Anion gap [Moles/Vol] 15 mmol/L Normal 5-15 [facility] Comment on above: Performed By: #### C BCA, CMP, , 2776-04 ####[facility] ([id number])[address], [place] [address] AST [Catalytic activity/Vol] 11 U/L Normal 0-41 [facility] Comment on above: Performed By: #### C BCA, CMP, , 2776-04 ####[facility] ([id number])[address], [address], [place] [address] Bilirubin [Mass/Vol] 0.9 mg/dL Normal 0.3-1.2 [facility] Comment on above: Performed By: #### C BCA, CMP, , 2776-04 ####[facility] ([id number])[address], [address], [place] [address] Calcium [Mass/Vol] 10.2 mg/dL Normal 8.5-10.5 [facility] Comment on above: Performed By: #### C BCA, CMP, , 2776-04 ####[facility] ([id number])[address], [address], [place] [address] Chloride [Moles/Vol] 103 mmol/L Normal 98-109 [facility] Comment on above: Performed By: #### C BCA, CMP, , 2776-04 ####[facility] ([id number])[address], [address], [place] [address] CO2 [Moles/Vol] 23 mmol/L Normal 22-32 [facility] Comment on above: Performed By: #### C BCA, CMP, , 2776-04 ####[facility] ([id number])[address], [place] [address] Creatinine [Mass/Vol] 3.65 mg/dL High 0.40-1.00 [facility] Comment on above: Result Comment: METH OD TRACEABLE TO IDMS STANDARD Performed By: #### C RENA THEODORE, , 2776-04 ####[facility] ([id number])[address], [address], [place] [address] GFR/1.73 sq M.predicted among non-blacks MDRD (S/P/Bld) [Vol rate/Area] 14 mL/min/{1.73_m2} Low >59 [facility] Comment on above: Result Comment: Repo rted eGFR is based on theCKD-EPI 2020 equation that doesnot use a race coefficient. Performed By: #### C RENA THEODORE, , 2776-04 ####[facility] ([id number])[address] [address] [address] Glucose [Mass/Vol] 101 mg/dL High 65-99 [facility] Comment on above: Performed By: #### C RENA THEODORE, , 2776-04 ####[facility] ([id number])[address] [address], [place] [address] Potassium [Moles/Vol] 3.6 mmol/L Normal 3.5-5.0 [facility] Comment on above: Performed By: #### C RENA THEODORE, , 2776-04 ####[facility] ([id number])[address] [address], [place] [address] Protein [Mass/Vol] 6.8 g/dL Normal 6.0-8.0 [facility] Comment on above: Performed By: #### C RENA THEODORE, , 2776-04 ####[facility] ([id number])[address] [address], [place] [address] Sodium [Moles/Vol] 141 mmol/L Normal 134-146 [facility] Comment on above: Performed By: #### C BCA, CMP, , 2777-1 ####[facility] ([id number])[address] [place] [address] Urea nitrogen [Mass/Vol] 76 mg/dL High 5-27 [facility] Comment on above: Performed By: #### C BCA, CMP, , 2776-04 ####[facility] ([id number])[address] [address] Glucose Glucometer (BldC) [M ass/Vol]on 06-29-2024 Glucose [Mass/Vol] 95 mg/dL Normal 65-99 [facility] MAGNESIUMon 06-29-2024 Magnesium [Mass/Vol] 2.2 mg/dL Normal 1.8-2.6 [facility] Comment on above: Performed By: #### C BCA, CMP, , 2776-04 ####[facility] ([id number])[address] [place] [address] PHOSPHORUSon 06-29-2024 Phosphate [Mass/Vol] 5.2 mg/dL High 2.4-4.9 [facility] Comment on above: Performed By: #### C BCA, CMP, , 2777-1 ####[facility] ([id number])[address] [place] [address] POTASSIUMon 06-29-2024 Potassium [Moles/Vol] 3.9 mmol/L Normal 3.5-5.0 [facility] Comment on above: Performed By: #### 2 823-3 ####[facility] ([id number])[address], [place] [address] VENOUS BLOOD GASon ROBERT'S TEST Normal [facility] Comment on above: Performed By: #### V BG ####[facility] ([id number])[address] [place] [address] BASE,DEFICIT 3.0 MMOL/L High 0.0-2.0 [facility] Comment on above: Performed By: #### V BG ####[facility] ([id number])[address] [facility] [place] [place] [address] Body temperature 98.6 [degF] Normal 37.0 [facility] Comment on above: Performed By: #### V BG ####[facility] ([id number])[address] [place] [address] HCO3 (Bld) [Moles/Vol] 24.5 mmol/L High 20.0-24.0 [facility] Comment on above: Performed By: #### V BG ####[facility] ([id number])[address] [place] [address] INSP. O2 CONC. 4 % Normal [facility] Comment on above: Performed By: #### V BG ####[facility] ([id number])[address] [place] [address] Oxygen saturation in Blood 54.0 % Low >80.0 [facility] Comment on above: Performed By: #### V BG ####[facility] ([id number])[address] [place] [address] OXYGEN SOURCE NC Normal [facility] Comment on above: Performed By: #### V BG ####[facility] ([id number])[address] [place] [address] PCO2, VENOUS 58.6 MMHG High 35-50 [facility] Comment on above: Performed By: #### V BG ####[facility] ([id number])[address] [facility] [place] [address] PH, VENOUS 7.230 Low 7.320-7.42 0 [facility] Comment on above: Performed By: #### V BG ####[facility] ([id number])[address] [place] [address] PO2, VENOUS 35 MMHG Normal 30-50 [facility] Comment on above: Performed By: #### V BG ####[facility] ([id number])[address] [place] [address] SAMPLE SITE N/A Normal [facility] Comment on above: Performed By: #### V BG ####[facility] ([id number])[address] [place] [address] SAMPLE TYPE VENOUS Normal [facility] Comment on above: Performed By: #### V BG ####[facility] ([id number])[address] [place] [address] XR CHEST 1 VWon 06-29-2024 XR CHEST 1 VW Normal [facility] CBC AND AUTO DIFFon 06-29-19 ABSOLUTE BASOPHIL 0.1 X10E9/L Normal 0.0-0.2 [facility] Comment on above: Performed By: #### C BCA, CMP, , 2776-04 ####[facility] ([id number])[address] [address] ABSOLUTE NEUTROPHIL 4.9 X10E9/L Normal 1.5-6.6 [facility] Comment on above: Performed By: #### C BCA, CMP, , 2776-04 ####[facility] ([id number])[address] [place] [address] Basophils/100 WBC (Bld) 1.3 % Normal [facility] Comment on above: Performed By: #### C BCA, CMP, , 2776-04 ####[facility] ([id number])[address], [place] [address] Eosinophils (Bld) [#/Vol] 0.8 10*3/uL High 0.0-0.4 [facility] Comment on above: Performed By: #### C EWELINA CMP, , 2776-04 ####[facility] ([id number])[address] [address] [place] [address] Eosinophils/100 WBC (Bld) 9.6 % Normal [facility] Comment on above: Performed By: #### C EWELINA, CMP, , 2776-04 ####[facility] ([id number])[address] [address] Erythrocyte distribution width (RBC) [Ratio] 17.6 % High 11.5-15.0 [facility] Comment on above: Performed By: #### Bertha THEODORE CMP, , 2776-04 ####[facility] ([id number])[address] [address] [place] [address] Hematocrit (Bld) [Volume fraction] 22.6 % Low 35-47 [facility] Comment on above: Performed By: #### Bertha THEODORE, CMP, , 2776-04 ####[facility] ([id number])[address] [address] Hemoglobin (Bld) [Mass/Vol] 7.4 g/dL Low 11.7-15.5 [facility] Comment on above: Performed By: #### C BCA, CMP, , 2776-04 ####[facility] ([id number])[address] [address] Lymphocytes (Bld) [#/Vol] 1.3 10*3/uL Normal 1.0-3.5 [facility] Comment on above: Performed By: #### C BCA, CMP, , 2776-04 ####[facility] ([id number])[address] [place] [address] Lymphocytes/100 WBC (Bld) 15.7 % Normal [facility] Comment on above: Performed By: #### C BCA, CMP, , 2776-04 ####[facility] ([id number])[address] [place] [address] MCH (RBC) [Entitic mass] 31.4 pg Normal 27-34 [facility] Comment on above: Performed By: #### C BCA, CMP, , 2776-04 ####[facility] ([id number])[address] [place] [address] MCHC (RBC) [Mass/Vol] 32.8 g/dL Normal 32-36 [facility] Comment on above: Performed By: #### Bertha BCA, CMP, , 2776-04 ####[facility] ([id number])[address] [place] [address] MCV (RBC) [Entitic vol] 96 fL Normal 80-100 [facility] Comment on above: Performed By: #### Bertha BCA, CMP, , 2776-04 ####[facility] ([id number])[address] [place] [address] Monocytes (Bld) [#/Vol] 0.9 10*3/uL Normal 0-0.9 [facility] Comment on above: Performed By: #### C BCA, CMP, , 2776-04 ####[facility] ([id number])[address] [place] [address] Monocytes/100 WBC (Bld) 11.8 % Normal [facility] Comment on above: Performed By: #### Bertha BCA, CMP, , 2776-04 ####[facility] ([id number])[address] [address] [address] Neutrophils/100 WBC (Bld) 61.6 % Normal [facility] Comment on above: Performed By: #### C BCA, CMP, , 2776-04 ####[facility] ([id number])[address] [address] [address] Platelet mean volume (Bld) [Entitic vol] 6.7 fL Low 7-12 [facility] Comment on above: Performed By: #### C BCA, CMP, , 2776-04 ####[facility] ([id number])[address] [address] [place] [address] Platelets (Bld) [#/Vol] 430 10*3/uL Normal 150-450 [facility] Comment on above: Performed By: #### C BCA, CMP, , 2776-04 ####[facility] ([id number])[address] [address] [place] [address] RBC COUNT 2.36 X10E12/L Low 3.80-5.20 [facility] Comment on above: Performed By: #### C BCA, CMP, , 2776-04 ####[facility] ([id number])[address] [address] WBC (Bld) [#/Vol] 8.0 10*3/uL Normal 4.0-11.0 [facility] Comment on above: Performed By: #### C BCA, CMP, , 2776-04 ####[facility] ([id number])[address] [address] [address] COMPREHENSIVE METABOLIC PANE Kael 06-28-2024 Albumin [Mass/Vol] 3.9 g/dL Normal 3.2-5.3 [facility] Comment on above: Performed By: #### C BCA, CMP, , 2776-04 ####[facility] ([id number])[address], [place] [address] ALP [Catalytic activity/Vol] 64 U/L Normal 39-130 [facility] Comment on above: Performed By: #### C BCA, CMP, , 2776-04 ####[facility] ([id number])[address], [place] [address] ALT [Catalytic activity/Vol] 5 U/L Normal 0-31 [facility] Comment on above: Performed By: #### C BCA, CMP, , 2776-04 ####[facility] ([id number])[address], [place] [address] Anion gap [Moles/Vol] 16 mmol/L High 5-15 [facility] Comment on above: Performed By: #### C BCA, CMP, , 2776-04 ####[facility] ([id number])[address], [place] [address] AST [Catalytic activity/Vol] 11 U/L Normal 0-41 [facility] Comment on above: Performed By: #### C BCA, CMP, , 2776-04 ####[facility] ([id number])[address], [place] [address] Bilirubin [Mass/Vol] 1.0 mg/dL Normal 0.3-1.2 [facility] Comment on above: Performed By: #### C BCA, CMP, , 2776-04 ####[facility] ([id number])[address], [place] [address] Calcium [Mass/Vol] 10.4 mg/dL Normal 8.5-10.5 [facility] Comment on above: Performed By: #### C BCA, CMP, , 2776-04 ####[facility] ([id number])[address] [place] [address] Chloride [Moles/Vol] 101 mmol/L Normal 98-109 [facility] Comment on above: Performed By: #### C BCA, CMP, , 2776-04 ####[facility] ([id number])[address], [place] [address] CO2 [Moles/Vol] 21 mmol/L Low 22-32 [facility] Comment on above: Performed By: #### C BCA, CMP, , 2776-04 ####[facility] ([id number])[address], [place] [address] Creatinine [Mass/Vol] 3.26 mg/dL High 0.40-1.00 [facility] Comment on above: Result Comment: METH OD TRACEABLE TO IDMS STANDARD Performed By: #### C BCA, CMP, , 2776-04 ####[facility] ([id number])[address], [facility] [address], [place] [address] GFR/1.73 sq M.predicted among non-blacks MDRD (S/P/Bld) [Vol rate/Area] 16 mL/min/{1.73_m2} Low >59 [facility] Comment on above: Result Comment: Repo rted eGFR is based on theCKD-EPI 2020 equation that doesnot use a race coefficient. Performed By: #### C BCA, CMP, , 2776-04 ####[facility] ([id number])[address], [address], [place] [address] Glucose [Mass/Vol] 83 mg/dL Normal 65-99 [facility] Comment on above: Performed By: #### C BCA, CMP, , 2776-04 ####[facility] ([id number])[address], [address], [place] [address] Potassium [Moles/Vol] 3.9 mmol/L Normal 3.5-5.0 [facility] Comment on above: Performed By: #### C RENA THEODORE, , 2776-04 ####[facility] ([id number])[address], [place] [address] Protein [Mass/Vol] 7.0 g/dL Normal 6.0-8.0 [facility] Comment on above: Performed By: #### C RENA THEODORE, , 2776-04 ####[facility] ([id number])[address] [address] [address] Sodium [Moles/Vol] 138 mmol/L Normal 134-146 [facility] Comment on above: Performed By: #### C RENA THEODORE, , 2776-04 ####[facility] ([id number])[address] [address], [place] [address] Urea nitrogen [Mass/Vol] 76 mg/dL High 5-27 [facility] Comment on above: Performed By: #### C EWELINA, CMP, , 2776-04 ####[facility] ([id number])[address] [address] [address] MAGNESIUMon 06-28-2024 Magnesium [Mass/Vol] 2.4 mg/dL Normal 1.8-2.6 [facility] Comment on above: Performed By: #### C EWELINA, CMP, , 2776-04 ####[facility] ([id number])[address], [address] [place] [address] PHOSPHORUSon 06-28-2024 Phosphate [Mass/Vol] 5.5 mg/dL High 2.4-4.9 [facility] Comment on above: Performed By: #### C RENA THEODORE, , 2776-04 ####[facility] ([id number])[address], [address], [place] [address] CBC AND AUTO DIFFon -20-20 25 ABSOLUTE BASOPHIL 0.1 X10E9/L Normal 0.0-0.2 [facility] Comment on above: Performed By: #### C BCA, CMP, , 2776-04 ####[facility] ([id number])[address] [address] ABSOLUTE NEUTROPHIL 4.1 X10E9/L Normal 1.5-6.6 [facility] Comment on above: Performed By: #### C BCA, [facility] [place], , 2776-04 ####[facility] ([id number])[address], [address], [place] [address] Basophils/100 WBC (Bld) 0.8 % Normal [facility] Comment on above: Performed By: #### C BCA, CMP, , 2776-04 ####[facility] ([id number])[address], [address], [place] [address] Eosinophils (Bld) [#/Vol] 0.4 10*3/uL Normal 0.0-0.4 [facility] Comment on above: Performed By: #### C BCA, CMP, , 2776-04 ####[facility] ([id number])[address], [address], [place] [address] Eosinophils/100 WBC (Bld) 6.0 % Normal [facility] Comment on above: Performed By: #### C BCA, CMP, , 2776-04 ####[facility] ([id number])[address], [address], [place] [address] Erythrocyte distribution width (RBC) [Ratio] 17.5 % High 11.5-15.0 [facility] Comment on above: Performed By: #### C EWELINA CMP, , 2776-04 ####[facility] ([id number])[address] [address] [place] [address] Hematocrit (Bld) [Volume fraction] 22.2 % Low 35-47 [facility] Comment on above: Performed By: #### Bertha THEODORE [facility], , 2776-04 ####[facility] ([id number])[address], [address], [place] [address] Hemoglobin (Bld) [Mass/Vol] 7.4 g/dL Low 11.7-15.5 [facility] Comment on above: Performed By: #### Bertha THEODORE CMP, , 2776-04 ####[facility] ([id number])[address] [address] [place] [address] Lymphocytes (Bld) [#/Vol] 1.3 10*3/uL Normal 1.0-3.5 [facility] Comment on above: Performed By: #### Bertha THEODORE [facility], , 2776-04 ####[facility] ([id number])[address] [address] [place] [address] Lymphocytes/100 WBC (Bld) 19.0 % Normal [facility] Comment on above: Performed By: #### Bertha THEODORE CMP, , 2776-04 ####[facility] ([id number])[address] [address], [place] [address] MCH (RBC) [Entitic mass] 31.8 pg Normal 27-34 [facility] Comment on above: Performed By: #### C WEELINA, CMP, , 2776-04 ####[facility] ([id number])[address], [address], [place] [address] MCHC (RBC) [Mass/Vol] 33.4 g/dL Normal 32-36 [facility] Comment on above: Performed By: #### C EWELINA CMP, , 2776-04 ####[facility] ([id number])[address], [address], [place] [address] MCV (RBC) [Entitic vol] 95 fL Normal 80-100 [facility] Comment on above: Performed By: #### Bertha THEODORE, CMP, , 2776-04 ####[facility] ([id number])[address], [address], [place] [address] Monocytes (Bld) [#/Vol] 0.9 10*3/uL Normal 0-0.9 [facility] Comment on above: Performed By: #### Bertha THEODORE, CMP, , 2776-04 ####[facility] ([id number])[address], [address], [place] [address] Monocytes/100 WBC (Bld) 13.7 % Normal [facility] Comment on above: Performed By: #### Bertha THEODORE, CMP, , 2776-04 ####[facility] ([id number])[address] [address], [place] [address] Neutrophils/100 WBC (Bld) 60.5 % Normal [facility] Comment on above: Performed By: #### Bertha THEODORE, CMP, , 2776-04 ####[facility] ([id number])[address], [address], [place] [address] Platelet mean volume (Bld) [Entitic vol] 6.8 fL Low 7-12 [facility] Comment on above: Performed By: #### Bertha BCA, CMP, , 2776-04 ####[facility] ([id number])[address], [address], [place] [address] Platelets (Bld) [#/Vol] 405 10*3/uL Normal 150-450 [facility] Comment on above: Performed By: #### C BCA, CMP, , 2776- ####[facility] ([id number])[address], [address] [place] [address] RBC COUNT 2.33 X10E12/L Low 3.80-5.20 [facility] Comment on above: Performed By: #### C BCA, CMP, , 2776-04 ####[facility] ([id number])[address] [address] WBC (Bld) [#/Vol] 6.8 10*3/uL Normal 4.0-11.0 [facility] Comment on above: Performed By: #### C BCA, CMP, , 2776-04 ####[facility] ([id number])[address], [address] [place] [address] COMPREHENSIVE METABOLIC PANE [facility] 06-27-2024 Albumin [Mass/Vol] 4.0 g/dL Normal 3.2-5.3 [facility] Comment on above: Performed By: #### C BCA, CMP, , 2776-04 ####[facility] ([id number])[address] [address] [place] [address] ALP [Catalytic activity/Vol] 60 U/L Normal 39-130 [facility] Comment on above: Performed By: #### C BCA, CMP, , 2776-04 ####[facility] ([id number])[address] [address] ALT [Catalytic activity/Vol] 6 U/L Normal 0-31 [facility] Comment on above: Performed By: #### C BCA, CMP, , 2776- ####[facility] ([id number])[address], [address], [place] [address] Anion gap [Moles/Vol] 15 mmol/L Normal 5-15 [facility] Comment on above: Performed By: #### C BCA, CMP, , 2776-04 ####[facility] ([id number])[address], [address], [place] [address] AST [Catalytic activity/Vol] 13 U/L Normal 0-41 [facility] Comment on above: Performed By: #### C BCA, CMP, , 2776-04 ####[facility] ([id number])[address], [address], [place] [address] Bilirubin [Mass/Vol] 0.9 mg/dL Normal 0.3-1.2 [facility] Comment on above: Performed By: #### C BCA, CMP, , 2776-04 ####[facility] ([id number])[address], [address], [place] [address] Calcium [Mass/Vol] 10.1 mg/dL Normal 8.5-10.5 [facility] Comment on above: Performed By: #### C BCA, CMP, , 2776-04 ####[facility] ([id number])[address], [address], [place] [address] Chloride [Moles/Vol] 102 mmol/L Normal 98-109 [facility] Comment on above: Performed By: #### C BCA, CMP, , 2776-04 ####[facility] ([id number])[address], [address], [place] [address] CO2 [Moles/Vol] 22 mmol/L Normal 22-32 [facility] Comment on above: Performed By: #### C BCA, CMP, , 2776-04 ####[facility] ([id number])[address] [place] [address] Creatinine [Mass/Vol] 2.91 mg/dL High 0.40-1.00 [facility] Comment on above: Result Comment: METH OD TRACEABLE TO IDMS STANDARD Performed By: #### C RENA THEODORE, , 2776-04 ####[facility] ([id number])[address] [address] [place] [address] GFR/1.73 sq M.predicted among non-blacks MDRD (S/P/Bld) [Vol rate/Area] 18 mL/min/{1.73_m2} Low >59 [facility] Comment on above: Result Comment: Repo rted eGFR is based on theCKD-EPI 2020 equation that doesnot use a race coefficient. Performed By: #### C RENA THEODORE, , 2776-04 ####[facility] ([id number])[address] [address] [place] [address] Glucose [Mass/Vol] 80 mg/dL Normal 65-99 [facility] Comment on above: Performed By: #### C RENA THEODORE, , 2776-04 ####[facility] ([id number])[address] [address] [place] [address] Potassium [Moles/Vol] 4.2 mmol/L Normal 3.5-5.0 [facility] Comment on above: Performed By: #### C RENA THEODORE, , 2776-04 ####[facility] ([id number])[address] [address] [place] [address] Protein [Mass/Vol] 7.0 g/dL Normal 6.0-8.0 [facility] Comment on above: Performed By: #### C RENA THEODORE, , 2776-04 ####[facility] ([id number])[address] [address] [place] [address] Sodium [Moles/Vol] 139 mmol/L Normal 134-146 [facility] Comment on above: Performed By: #### C EWELINA, CMP, , 2776-04 ####[facility] ([id number])[address], [address], [place] [address] Urea nitrogen [Mass/Vol] 71 mg/dL High 5-27 [facility] Comment on above: Performed By: #### C EWELINA, CMP, , 2776-04 ####[facility] ([id number])[address], [address], [place] [address] HBV core IgM IA Qlon 025 HEPATITIS B CORE IGM Non-Reactive Normal NRCT Pr [facility] Comment on above: Result Comment: NEW TEST METHOD Performed By: #### 2 4113-3 ####[facility] ([id number])[address], [address], [place] [address] MAGNESIUMon 06-27-2024 Magnesium [Mass/Vol] 2.5 mg/dL Normal 1.8-2.6 [facility] Comment on above: Performed By: #### C EWELINA, CMP, , 2776-04 ####[facility] ([id number])[address], [address], [place] [address] PHOSPHORUSon 06-27-2024 Phosphate [Mass/Vol] 5.3 mg/dL High 2.4-4.9 [facility] Comment on above: Performed By: #### C BCA, CMP, , 2776-04 ####[facility] ([id number])[address], [address] [place] [address] CBC AND AUTO DIFFon 06-27-19 25 ABSOLUTE BASOPHIL 0.2 X10E9/L Normal 0.0-0.2 [facility] Comment on above: Performed By: #### C BCA, CMP, , 2776-04 ####[facility] ([id number])[address], [address] [place] [address] ABSOLUTE NEUTROPHIL 3.7 X10E9/L Normal 1.5-6.6 [facility] Comment on above: Performed By: #### C BCA, CMP, , 2776-04 ####[facility] ([id number])[address], [address], [place] [address] Basophils/100 WBC (Bld) 2.7 % Normal [facility] Comment on above: Performed By: #### C BCA, CMP, , 2776-04 ####[facility] ([id number])[address], [address] [address] Eosinophils (Bld) [#/Vol] 0.1 10*3/uL Normal 0.0-0.4 [facility] Comment on above: Performed By: #### C BCA, CMP, , 2776-04 ####[facility] ([id number])[address], [address] [address] Eosinophils/100 WBC (Bld) 2.3 % Normal [facility] Comment on above: Performed By: #### C BCA, CMP, , 2776-04 ####[facility] ([id number])[address] [address] [address] Erythrocyte distribution width (RBC) [Ratio] 17.4 % High 11.5-15.0 [facility] Comment on above: Performed By: #### C BCA, CMP, , 2776-04 ####[facility] ([id number])[address], [address], [place] [address] Hematocrit (Bld) [Volume fraction] 22.2 % Low 35-47 [facility] Comment on above: Performed By: #### C BCA, CMP, , 2776-04 ####[facility] ([id number])[address], [address], [place] [address] Hemoglobin (Bld) [Mass/Vol] 7.4 g/dL Low 11.7-15.5 [facility] Comment on above: Performed By: #### C EWELINA CMP, , 2776-04 ####[facility] ([id number])[address], [address] [place] [address] Lymphocytes (Bld) [#/Vol] 1.2 10*3/uL Normal 1.0-3.5 [facility] Comment on above: Performed By: #### C EWELINA CMP, , 2776-04 ####[facility] ([id number])[address] [address] Lymphocytes/100 WBC (Bld) 19.4 % Normal [facility] Comment on above: Performed By: #### Bertha THEODORE, CMP, , 2776-04 ####[facility] ([id number])[address] [address], [place] [address] MCH (RBC) [Entitic mass] 31.8 pg Normal 27-34 [facility] Comment on above: Performed By: #### C EWELINA, CMP, , 2776-04 ####[facility] ([id number])[address] [address] [place] [address], [place] [address] MCHC (RBC) [Mass/Vol] 33.6 g/dL Normal 32-36 [facility] Comment on above: Performed By: #### C BCA, CMP, , 2776-04 ####[facility] ([id number])[address], [address], [place] [address] MCV (RBC) [Entitic vol] 95 fL Normal 80-100 [facility] Comment on above: Performed By: #### C BCA CMP, , 2776-04 ####[facility] ([id number])[address], [address], [place] [address] Monocytes (Bld) [#/Vol] 1.0 10*3/uL High 0-0.9 [facility] Comment on above: Performed By: #### C BCA, CMP, , 2776-04 ####[facility] ([id number])[address], [address] [place] [address] Monocytes/100 WBC (Bld) 15.5 % Normal [facility] Comment on above: Performed By: #### C BCA, CMP, , 2776-04 ####[facility] ([id number])[address] [address], [place] [address] Neutrophils/100 WBC (Bld) 60.1 % Normal [facility] Comment on above: Performed By: #### C BCA, CMP, , 2776-04 ####[facility] ([id number])[address], [address] [place] [address] Platelet mean volume (Bld) [Entitic vol] 6.7 fL Low 7-12 [facility] Comment on above: Performed By: #### C BCA, CMP, , 2776-04 ####[facility] ([id number])[address] [address] [address] Platelets (Bld) [#/Vol] 394 10*3/uL Normal 150-450 [facility] Comment on above: Performed By: #### C BCA, CMP, , 2776-04 ####[facility] ([id number])[address], [address], [place] [address] RBC COUNT 2.34 X10E12/L Low 3.80-5.20 [facility] Comment on above: Performed By: #### C BCA, CMP, , 2776-04 ####[facility] ([id number])[address], [address] [address] WBC (Bld) [#/Vol] 6.2 10*3/uL Normal 4.0-11.0 [facility] Comment on above: Performed By: #### C BCA, CMP, , 2776-04 ####[facility] ([id number])[address], [address], [place] [address] COMPREHENSIVE METABOLIC PANE Kael 06-26-2024 Albumin [Mass/Vol] 4.4 g/dL Normal 3.2-5.3 [facility] Comment on above: Performed By: #### C BCA, CMP, , 2776-04 ####[facility] ([id number])[address], [address], [place] [address] ALP [Catalytic activity/Vol] 63 U/L Normal 39-130 [facility] Comment on above: Performed By: #### C BCA, CMP, , 2776-04 ####[facility] ([id number])[address] [place] [address] ALT [Catalytic activity/Vol] 5 U/L Normal 0-31 [facility] Comment on above: Performed By: #### C BCA, CMP, , 2776-04 ####[facility] ([id number])[address], [address], [place] [address] Anion gap [Moles/Vol] 17 mmol/L High 5-15 [facility] Comment on above: Performed By: #### C BCA, CMP, , 2776-04 ####[facility] ([id number])[address], [address], [place] [address] AST [Catalytic activity/Vol] 12 U/L Normal 0-41 [facility] Comment on above: Performed By: #### C BCA, CMP, , 2776-04 ####[facility] ([id number])[address], [address], [place] [address] Bilirubin [Mass/Vol] 1.0 mg/dL Normal 0.3-1.2 [facility] Comment on above: Performed By: #### C BCA, CMP, , 2776-04 ####[facility] ([id number])[address], [address], [place] [address] Calcium [Mass/Vol] 10.2 mg/dL Normal 8.5-10.5 [facility] Comment on above: Performed By: #### C BCA, CMP, , 2776-04 ####[facility] ([id number])[address], [place] [address] Chloride [Moles/Vol] 98 mmol/L Normal 98-109 [facility] Comment on above: Performed By: #### C BCA, CMP, , 2776-04 ####[facility] ([id number])[address] [address], [place] [address] CO2 [Moles/Vol] 22 mmol/L Normal 22-32 [facility] Comment on above: Performed By: #### C BCA, CMP, , 2776-04 ####[facility] ([id number])[address] [address], [place] [address] Creatinine [Mass/Vol] 2.31 mg/dL High 0.40-1.00 [facility] Comment on above: Result Comment: METH OD TRACEABLE TO IDMS STANDARD Performed By: #### C BCA, CMP, , 2776-04 ####[facility] ([id number])[address], [place] [address] GFR/1.73 sq M.predicted among non-blacks MDRD (S/P/Bld) [Vol rate/Area] 23 mL/min/{1.73_m2} Low >59 [facility] Comment on above: Result Comment: Repo rted eGFR is based on theCKD-EPI 2020 equation that doesnot use a race coefficient. Performed By: #### C RENA THEODORE, , 2776-04 ####[facility] ([id number])[address] [place] [address] Glucose [Mass/Vol] 94 mg/dL Normal 65-99 [facility] Comment on above: Performed By: #### C EWELINA CMP, , 2776-04 ####[facility] ([id number])[address] [address] Potassium [Moles/Vol] 3.2 mmol/L Low 3.5-5.0 [facility] Comment on above: Performed By: #### C EWELINA, CMP, , 2776-04 ####[facility] ([id number])[address] [address], [place] [address] Protein [Mass/Vol] 7.5 g/dL Normal 6.0-8.0 [facility] Comment on above: Performed By: #### C EWELINA CMP, , 2776-04 ####[facility] ([id number])[address] [address], [place] [address] Sodium [Moles/Vol] 137 mmol/L Normal 134-146 [facility] Comment on above: Performed By: #### C BCA, CMP, , 2776-04 ####[facility] ([id number])[address], [place] [address] Urea nitrogen [Mass/Vol] 63 mg/dL High 5-27 [facility] Comment on above: Performed By: #### C EWELINA, CMP, , [address] ####[facility] ([id number])[address], [place] [address] FL SWALLOW MOTILITY FUNCTION on 06-26-2024 FL SWALLOW MOTILITY FUNCTION Normal [facility] MAGNESIUMon 06-26-2024 Magnesium [Mass/Vol] 1.9 mg/dL Normal 1.8-2.6 [facility] Comment on above: Performed By: #### C EWELINA, CMP, , 2776-04 ####[facility] ([id number])[address], [place] [address] Magnesium Ionized ISE (Bld) [Moles/Vol]on 06-26-2024 Magnesium [Moles/Vol] 0.73 mmol/L Normal 0.45-0.74 [facility] Comment on above: Result Comment: NEW REFERENCE RANGE Performed By: #### 7 3572-0 ####[facility] ([id number])[address], [place] [address] PHOSPHORUSon 06-26-2024 Phosphate [Mass/Vol] 4.5 mg/dL Normal 2.4-4.9 [facility] Comment on above: Performed By: #### C EWELINA, CMP, , 2777-1 ####[facility] ([id number])[address], [place] [address] POTASSIUMon 06-26-2024 Potassium [Moles/Vol] 4.3 mmol/L Normal 3.5-5.0 [facility] Comment on above: Performed By: #### 2 823-3 ####[facility] ([id number])[address], [place] [address] Potassium [Moles/Vol] 3.5 mmol/L Normal 3.5-5.0 [facility] Comment on above: Performed By: #### 2 823-3 ####[facility] ([id number])[address] [place] [address], [place] [address] XR CHEST 1 VWon 06-26-2024 XR CHEST 1 VW Normal [facility] ARTERIAL BLOOD GASon 025 ROBERT'S TEST Normal [facility] Comment on above: Performed By: #### A BG ####[facility] ([id number])[address] [place] [address] BASE,DEFICIT 5.0 MMOL/L High 0.0-2.0 [facility] Comment on above: Performed By: #### A BG ####[facility] ([id number])[address] [place] [address] Body temperature 98.6 [degF] Normal 37.0 [facility] Comment on above: Performed By: #### A BG ####[facility] ([id number])[address] [place] [address] HCO3 (Bld) [Moles/Vol] 19.6 mmol/L Low 22-26 [facility] Comment on above: Performed By: #### A BG ####[facility] ([id number])[address] [place] [address] INSP. O2 CONC. 40 % Normal [facility] Comment on above: Performed By: #### A BG ####[facility] ([id number])[address] [place] [address] Oxygen (Bld) [Partial pressure] 173 mm[Hg] High 80-100 [facility] Comment on above: Performed By: #### A BG ####[facility] ([id number])[address] [place] [address] Oxygen saturation in Blood 100.0 % Normal >90 [facility] Comment on above: Performed By: #### A BG ####[facility] ([id number])[address] [place] [address] OXYGEN SOURCE Vent Normal [facility] Comment on above: Performed By: #### A BG ####[facility] ([id number])[address] [place] [address] PCO2 33.3 MMHG Low 35-45 [facility] Comment on above: Performed By: #### A BG ####[facility] ([id number])[address] [place] [address] pH (Bld) 7.378 [pH] Normal 7.350-7.45 0 [facility] Comment on above: Performed By: #### A BG ####[facility] ([id number])[address] [place] [address] SAMPLE SITE Breanne [facility] Comment on above: Performed By: #### A BG ####[facility] ([id number])[address] [place] [address] SAMPLE TYPE ARTERIAL Normal [facility] Comment on above: Performed By: #### A BG ####[facility] ([id number])[address] [place] [address] CBC AND AUTO DIFFon -18-20 25 ABSOLUTE BASOPHIL 0.0 X10E9/L Normal 0.0-0.2 [facility] Comment on above: Performed By: #### C EWELINA, CMP, 88725-3, 2777-1 ####[facility] ([id number])[address] [address] ABSOLUTE NEUTROPHIL 5.7 X10E9/L Normal 1.5-6.6 [facility] Comment on above: Performed By: #### C EWELINA, CMP, 396[address]-7, 2777-1 ####[facility] ([id number])[address], [place] [address] Basophils/100 WBC (Bld) 0.7 % Normal [facility] Comment on above: Performed By: #### C BCA, CMP, , 2776-04 ####[facility] ([id number])[address], [place] [address] Eosinophils (Bld) [#/Vol] 0.0 10*3/uL Normal 0.0-0.4 [facility] Comment on above: Performed By: #### C BCA, CMP, , 2776-04 ####[facility] ([id number])[address], [address], [place] [address] Eosinophils/100 WBC (Bld) 0.0 % Normal [facility] Comment on above: Performed By: #### C BCA, CMP, , 2776-04 ####[facility] ([id number])[address], [address], [place] [address] Erythrocyte distribution width (RBC) [Ratio] 17.3 % High 11.5-15.0 [facility] Comment on above: Performed By: #### C BCA, CMP, , 2776-04 ####[facility] ([id number])[address] [address] [address] Hematocrit (Bld) [Volume fraction] 25.2 % Low 35-47 [facility] Comment on above: Performed By: #### C BCA, CMP, , 2776-04 ####[facility] ([id number])[address], [address] [place] [address] Hemoglobin (Bld) [Mass/Vol] 8.5 g/dL Low 11.7-15.5 [facility] Comment on above: Performed By: #### C BCA, CMP, , 2776-04 ####[facility] ([id number])[address] [address] Lymphocytes (Bld) [#/Vol] 0.8 10*3/uL Low 1.0-3.5 [facility] Comment on above: Performed By: #### Bertha THEODORE CMP, , 2776-04 ####[facility] ([id number])[address] [address] Lymphocytes/100 WBC (Bld) 11.1 % Normal [facility] Comment on above: Performed By: #### C EWELINA, CMP, , 2776-04 ####[facility] ([id number])[address] [address] MCH (RBC) [Entitic mass] 32.0 pg Normal 27-34 [facility] Comment on above: Performed By: #### Bertha THEODORE, CMP, , 2776-04 ####[facility] ([id number])[address] [address] MCHC (RBC) [Mass/Vol] 33.7 g/dL Normal 32-36 [facility] Comment on above: Performed By: #### Bertha THEODORE, CMP, , 2776-04 ####[facility] ([id number])[address] [address] MCV (RBC) [Entitic vol] 95 fL Normal 80-100 [facility] Comment on above: Performed By: #### Bertha BCA, CMP, , 2776-04 ####[facility] ([id number])[address] [address] Monocytes (Bld) [#/Vol] 0.3 10*3/uL Normal 0-0.9 [facility] Comment on above: Performed By: #### Bertha BCA, CMP, , 2776-04 ####[facility] ([id number])[address], [place] [address] Monocytes/100 WBC (Bld) 4.8 % Normal [facility] Comment on above: Performed By: #### C BCA, CMP, , 2776-04 ####[facility] ([id number])[address] [address], [place] [address] Neutrophils/100 WBC (Bld) 83.4 % Normal [facility] Comment on above: Performed By: #### C BCA, CMP, , 2776-04 ####[facility] ([id number])[address], [address], [place] [address] Platelet mean volume (Bld) [Entitic vol] 7.2 fL Normal 7-12 [facility] Comment on above: Performed By: #### C BCA, CMP, , 2776-04 ####[facility] ([id number])[address], [address] [place] [address] Platelets (Bld) [#/Vol] 419 10*3/uL Normal 150-450 [facility] Comment on above: Performed By: #### C BCA, CMP, , 2776-04 ####[facility] ([id number])[address], [address], [place] [address] RBC COUNT 2.66 X10E12/L Low 3.80-5.20 [facility] Comment on above: Performed By: #### C BCA, CMP, , 2776-04 ####[facility] ([id number])[address], [address], [place] [address] WBC (Bld) [#/Vol] 6.8 10*3/uL Normal 4.0-11.0 [facility] Comment on above: Performed By: #### C BCA, CMP, , 2776- ####[facility] ([id number])[address], [address], [place] [address] COMPREHENSIVE METABOLIC PANE Kael 06-25-2024 Albumin [Mass/Vol] 3.6 g/dL Normal 3.2-5.3 [facility] Comment on above: Performed By: #### C BCA, CMP, , 2776- ####[facility] ([id number])[address], [address], [place] [address] ALP [Catalytic activity/Vol] 66 U/L Normal 39-130 [facility] Comment on above: Performed By: #### C BCA, CMP, , 2776- ####[facility] ([id number])[address], [address], [place] [address] ALT [Catalytic activity/Vol] 4 U/L Normal 0-31 [facility] Comment on above: Performed By: #### C BCA, CMP, , 2776-04 ####[facility] ([id number])[address], [address], [place] [address] Anion gap [Moles/Vol] 18 mmol/L High 5-15 [facility] Comment on above: Performed By: #### C BCA, CMP, , 2776-04 ####[facility] ([id number])[address], [address], [place] [address] AST [Catalytic activity/Vol] 9 U/L Normal 0-41 [facility] Comment on above: Performed By: #### C BCA, CMP, , 2776- ####[facility] ([id number])[address], [address], [place] [address] Bilirubin [Mass/Vol] 0.8 mg/dL Normal 0.3-1.2 [facility] Comment on above: Performed By: #### C BCA, CMP, 89353-62776-04 ####[facility] ([id number])[address], [address], [place] [address] Calcium [Mass/Vol] 10.4 mg/dL Normal 8.5-10.5 [facility] Comment on above: Performed By: #### C BCA, CMP, , 2776-04 ####[facility] ([id number])[address], [address] [place] [address] Chloride [Moles/Vol] 96 mmol/L Low 98-109 [facility] Comment on above: Performed By: #### C BCA, CMP, , 2776-04 ####[facility] ([id number])[address] [address] [place] [address] CO2 [Moles/Vol] 22 mmol/L Normal 22-32 [facility] Comment on above: Performed By: #### C BCA, CMP, , 2776-04 ####[facility] ([id number])[address] [address] [place] [address] Creatinine [Mass/Vol] 2.94 mg/dL High 0.40-1.00 [facility] Comment on above: Result Comment: METH OD TRACEABLE TO IDMS STANDARD Performed By: #### C BCA, CMP, , 2776-04 ####[facility] ([id number])[address] [address] GFR/1.73 sq M.predicted among non-blacks MDRD (S/P/Bld) [Vol rate/Area] 18 mL/min/{1.73_m2} Low >59 [facility] Comment on above: Result Comment: Repo rted eGFR is based on theCKD-EPI 2020 equation that doesnot use a race coefficient. Performed By: #### C BCA, CMP, , 2776-04 ####[facility] ([id number])[address], [address], [place] [address] Glucose [Mass/Vol] 125 mg/dL High 65-99 [facility] Comment on above: Performed By: #### C BCA, CMP, , 2776-04 ####[facility] ([id number])[address], [address], [place] [address] Potassium [Moles/Vol] 3.9 mmol/L Normal 3.5-5.0 [facility] Comment on above: Performed By: #### C BCA, CMP, , 2776-04 ####[facility] ([id number])[address], [address], [place] [address] Protein [Mass/Vol] 7.0 g/dL Normal 6.0-8.0 [facility] Comment on above: Performed By: #### C BCA, CMP, , 2776-04 ####[facility] ([id number])[address], [address], [place] [address] Sodium [Moles/Vol] 136 mmol/L Normal 134-146 [facility] Comment on above: Performed By: #### C BCA, CMP, , 2776-04 ####[facility] ([id number])[address], [address], [place] [address] Urea nitrogen [Mass/Vol] 105 mg/dL High 5-27 [facility] Comment on above: Performed By: #### C BCA, CMP, , 2776-04 ####[facility] ([id number])[address], [address], [place] [address] MAGNESIUMon 06-25-2024 Magnesium [Mass/Vol] 2.3 mg/dL Normal 1.8-2.6 [facility] Comment on above: Performed By: #### C BCA, CMP, , 2776-04 ####[facility] ([id number])[address], [address], [place] [address] PHOSPHORUSon 06-25-2024 Phosphate [Mass/Vol] 7.0 mg/dL High 2.4-4.9 [facility] Comment on above: Performed By: #### C BCA, CMP, 77430-1, 2777-1 ####[facility] ([id number])[address], [address], [place] [address] XR CHEST 1 VWon 06-25-2024 XR CHEST 1 VW Normal [facility] ARTERIAL BLOOD GASon 025 ROBERT'S TEST Normal [facility] Comment on above: Performed By: #### A BG ####[facility] ([id number])[address] [place] [address] BASE,DEFICIT 7.0 MMOL/L High 0.0-2.0 [facility] Comment on above: Performed By: #### A BG ####[facility] ([id number])[address] [place] [address] Body temperature 98.6 [degF] Normal 37.0 [facility] Comment on above: Performed By: #### A BG ####[facility] ([id number])[address] [place] [address] HCO3 (Bld) [Moles/Vol] 18.8 mmol/L Low 22-26 [facility] Comment on above: Performed By: #### A BG ####[facility] ([id number])[address] [place] [address] INSP. O2 CONC. 40 % Normal [facility] Comment on above: Performed By: #### A BG ####[facility] ([id number])[address] [place] [address] Oxygen (Bld) [Partial pressure] 115 mm[Hg] High 80-100 [facility] Comment on above: Performed By: #### A BG ####[facility] ([id number])[address] [place] [address] Oxygen saturation in Blood 98.0 % Normal >90 [facility] Comment on above: Performed By: #### A BG ####[facility] ([id number])[address] [place] [address] OXYGEN SOURCE Vent Normal [facility] Comment on above: Performed By: #### A BG ####[facility] ([id number])[address] [place] [address] PCO2 39.3 MMHG Normal 35-45 [facility] Comment on above: Performed By: #### A BG ####[facility] ([id number])[address] [place] [address] pH (Bld) 7.288 [pH] Low 7.350-7.45 0 [facility] Comment on above: Performed By: #### A BG ####[facility] ([id number])[address] [place] [address] SAMPLE SITE Breanne [facility] Comment on above: Performed By: #### A BG ####[facility] ([id number])[address] [place] [address] SAMPLE TYPE ARTERIAL Normal [facility] Comment on above: Performed By: #### A BG ####[facility] ([id number])[address] [place] [address] ROBERT'S TEST Normal [facility] Comment on above: Performed By: #### A BG ####[facility] ([id number])[address] [place] [address] BASE,DEFICIT 6.0 MMOL/L High 0.0-2.0 [facility] Comment on above: Performed By: #### A BG ####[facility] ([id number])[address] [place] [address] Body temperature 98.6 [degF] Normal 37.0 [facility] Comment on above: Performed By: #### A BG ####[facility] ([id number])[address] [place] [address] HCO3 (Bld) [Moles/Vol] 20.7 mmol/L Low 22-26 [facility] Comment on above: Performed By: #### A BG ####[facility] ([id number])[address] [place] [address] INSP. O2 CONC. 40 % Normal [facility] Comment on above: Performed By: #### A BG ####[facility] ([id number])[address] [facility] [place] [address] Oxygen (Bld) [Partial pressure] 94 mm[Hg] Normal 80-100 [facility] Comment on above: Performed By: #### A BG ####[facility] ([id number])[address] [facility] [place] [address] Oxygen saturation in Blood 96.0 % Normal >90 [facility] Comment on above: Performed By: #### A BG ####[facility] ([id number])[address] [facility] [place] [address] OXYGEN SOURCE Vent Normal [facility] Comment on above: Performed By: #### A BG ####[facility] ([id number])[address] [facility] [place] [address] PCO2 44.7 MMHG Normal 35-45 [facility] Comment on above: Performed By: #### A BG ####[facility] ([id number])[address] [place] [address] pH (Bld) 7.275 [pH] Low 7.350-7.45 0 [facility] Comment on above: Performed By: #### A BG ####[facility] ([id number])[address] [place] [address] SAMPLE SITE Breanne Normal [facility] Comment on above: Performed By: #### A BG ####[facility] ([id number])[address] [place] [address] SAMPLE TYPE ARTERIAL Normal [facility] Comment on above: Performed By: #### A BG ####[facility] ([id number])[address] [place] [address] CBC AND AUTO DIFFon 06-25-19 25 ABSOLUTE BASOPHIL 0.0 X10E9/L Normal 0.0-0.2 [facility] Comment on above: Performed By: #### C EWELINA, CMP, , 2776-04 ####[facility] ([id number])[address] [place] [address] ABSOLUTE NEUTROPHIL 8.3 X10E9/L High 1.5-6.6 [facility] Comment on above: Performed By: #### C BCA, CMP, , 2776-04 ####[facility] ([id number])[address] [place] [address] Basophils/100 WBC (Bld) 0.4 % Normal [facility] Comment on above: Performed By: #### C BCA, CMP, , 2776-04 ####[facility] ([id number])[address], [address] [address] Eosinophils (Bld) [#/Vol] 0.0 10*3/uL Normal 0.0-0.4 [facility] Comment on above: Performed By: #### C BCA, CMP, , 2776-04 ####[facility] ([id number])[address] [place] [address] Eosinophils/100 WBC (Bld) 0.3 % Normal [facility] Comment on above: Performed By: #### C EWELINA CMP, , 2776-04 ####[facility] ([id number])[address] [address] Erythrocyte distribution width (RBC) [Ratio] 17.9 % High 11.5-15.0 [facility] Comment on above: Performed By: #### C EWELINA, CMP, , 2776-04 ####[facility] ([id number])[address] [address] Hematocrit (Bld) [Volume fraction] 25.6 % Low 35-47 [facility] Comment on above: Performed By: #### Bertha THEODORE, CMP, , 2776-04 ####[facility] ([id number])[address] [address] Hemoglobin (Bld) [Mass/Vol] 8.4 g/dL Low 11.7-15.5 [facility] Comment on above: Performed By: #### C EWELINA, CMP, , 2776-04 ####[facility] ([id number])[address] [address] Lymphocytes (Bld) [#/Vol] 0.4 10*3/uL Low 1.0-3.5 [facility] Comment on above: Performed By: #### C EWELINA, CMP, , 2776-04 ####[facility] ([id number])[address] [address] Lymphocytes/100 WBC (Bld) 4.6 % Normal [facility] Comment on above: Performed By: #### Bertha THEODORE, CMP, , 2776-04 ####[facility] ([id number])[address] [place] [address] MCH (RBC) [Entitic mass] 31.2 pg Normal 27-34 [facility] Comment on above: Performed By: #### C BCA, CMP, , 2776-04 ####[facility] ([id number])[address], [address] [place] [address] MCHC (RBC) [Mass/Vol] 32.7 g/dL Normal 32-36 [facility] Comment on above: Performed By: #### C BCA, CMP, , 2776-04 ####[facility] ([id number])[address] [address] [address] MCV (RBC) [Entitic vol] 95 fL Normal 80-100 [facility] Comment on above: Performed By: #### C BCA, CMP, , 2776-04 ####[facility] ([id number])[address] [address], [place] [address] Monocytes (Bld) [#/Vol] 0.2 10*3/uL Normal 0-0.9 [facility] Comment on above: Performed By: #### C BCA, CMP, , 2776-04 ####[facility] ([id number])[address] [place] [address] Monocytes/100 WBC (Bld) 2.2 % Normal [facility] Comment on above: Performed By: #### C BCA, CMP, , 2776-04 ####[facility] ([id number])[address] [place] [address] Neutrophils/100 WBC (Bld) 92.5 % Normal [facility] Comment on above: Performed By: #### C BCA, CMP, , 2776-04 ####[facility] ([id number])[address], [place] [address] Platelet mean volume (Bld) [Entitic vol] 7.2 fL Normal 7-12 [facility] Comment on above: Performed By: #### C BCA, CMP, , 2776-04 ####[facility] ([id number])[address], [address], [place] [address] Platelets (Bld) [#/Vol] 329 10*3/uL Normal 150-450 [facility] Comment on above: Performed By: #### C BCA, CMP, , 2776- ####[facility] ([id number])[address] [address] [address] RBC COUNT 2.69 X10E12/L Low 3.80-5.20 [facility] Comment on above: Performed By: #### C BCA, CMP, , 2776-04 ####[facility] ([id number])[address] [address] [place] [address] WBC (Bld) [#/Vol] 9.0 10*3/uL Normal 4.0-11.0 [facility] Comment on above: Performed By: #### C BCA, CMP, , 1 ####[facility] ([id number])[address], [address], [place] [address] COMPREHENSIVE METABOLIC PANE Kael 06-24-2024 Albumin [Mass/Vol] 3.6 g/dL Normal 3.2-5.3 [facility] Comment on above: Performed By: #### C BCA, CMP, , 2776- ####[facility] ([id number])[address] [address] [place] [address] ALP [Catalytic activity/Vol] 65 U/L Normal 39-130 [facility] Comment on above: Performed By: #### C BCA, CMP, , 2776-04 ####[facility] ([id number])[address], [address], [place] [address] ALT [Catalytic activity/Vol] 6 U/L Normal 0-31 [facility] Comment on above: Performed By: #### C BCA, CMP, , 2776-04 ####[facility] ([id number])[address], [place] [address] Anion gap [Moles/Vol] 15 mmol/L Normal 5-15 [facility] Comment on above: Performed By: #### C BCA, CMP, , 2776-04 ####[facility] ([id number])[address], [place] [address] AST [Catalytic activity/Vol] 10 U/L Normal 0-41 [facility] Comment on above: Performed By: #### C BCA, CMP, , 2776-04 ####[facility] ([id number])[address], [place] [address] Bilirubin [Mass/Vol] 0.9 mg/dL Normal 0.3-1.2 [facility] Comment on above: Performed By: #### C BCA, CMP, , 2776-04 ####[facility] ([id number])[address], [address], [place] [address] Calcium [Mass/Vol] 10.0 mg/dL Normal 8.5-10.5 [facility] Comment on above: Performed By: #### C BCA, CMP, , 2776-04 ####[facility] ([id number])[address], [place] [address] Chloride [Moles/Vol] 98 mmol/L Normal 98-109 [facility] Comment on above: Performed By: #### C BCA, CMP, 2776-04 ####[facility] ([id number])[address] [place] [address] CO2 [Moles/Vol] 20 mmol/L Low 22-32 [facility] Comment on above: Performed By: #### C RENA THEODORE, , 2776-04 ####[facility] ([id number])[address] [place] [address] Creatinine [Mass/Vol] 2.61 mg/dL High 0.40-1.00 [facility] Comment on above: Result Comment: METH OD TRACEABLE TO IDMS STANDARD Performed By: #### C RENA THEODORE, , 2776-04 ####[facility] ([id number])[address] [address] [address] GFR/1.73 sq M.predicted among non-blacks MDRD (S/P/Bld) [Vol rate/Area] 20 mL/min/{1.73_m2} Low >59 [facility] Comment on above: Result Comment: Repo rted eGFR is based on theCKD-EPI 2020 equation that doesnot use a race coefficient. Performed By: #### C RENA THEODORE, , 2776-04 ####[facility] ([id number])[address] [address] [place] [address] Glucose [Mass/Vol] 140 mg/dL High 65-99 [facility] Comment on above: Performed By: #### C RENA THEODORE, , 2776-04 ####[facility] ([id number])[address] [address] [place] [address] Potassium [Moles/Vol] 4.3 mmol/L Normal 3.5-5.0 [facility] Comment on above: Performed By: #### C RENA THEODORE, , 2776-04 ####[facility] ([id number])[address] [address] [address] Protein [Mass/Vol] 6.7 g/dL Normal 6.0-8.0 [facility] Comment on above: Performed By: #### C BCA, CMP, , 1 ####[facility] ([id number])[address] [address] Sodium [Moles/Vol] 133 mmol/L Low 134-146 [facility] Comment on above: Performed By: #### C BCA, CMP, , 2776-04 ####[facility] ([id number])[address] [address] [place] [address] Urea nitrogen [Mass/Vol] 95 mg/dL High 5-27 [facility] Comment on above: Performed By: #### C BCA, CMP, , 2776-04 ####[facility] ([id number])[address] [address] [place] [address] Calcium.ionized (Bld) [Mass/ Vol]on 06-24-2024 IONIZED CALCIUM 5.3 mg/dL Normal 4.5-5.3 [facility] Comment on above: Performed By: #### 3 8230-9, 83141-5 ####[facility] ([id number])[address] [address] [place] [address] MAGNESIUMon 06-24-2024 Magnesium [Mass/Vol] 2.2 mg/dL Normal 1.8-2.6 [facility] Comment on above: Performed By: #### C BCA, CMP, , 2776-04 ####[facility] ([id number])[address] [address] [place] [address], [place] [address] Magnesium Ionized ISE (Bld) [Moles/Vol]on 06-24-2024 Magnesium [Moles/Vol] 0.55 mmol/L Normal 0.45-0.74 [facility] Comment on above: Result Comment: NEW REFERENCE RANGE Performed By: #### 3 8230-9, 22699-9 ####[facility] ([id number])[address] [address] PHOSPHORUSon 06-24-2024 Phosphate [Mass/Vol] 6.2 mg/dL High 2.4-4.9 [facility] Comment on above: Performed By: #### C BCA, CMP, , 2776-04 ####[facility] ([id number])[address] [address] XR CHEST 1 VWon 06-24-2024 XR CHEST 1 VW Normal [facility] XR CHEST 1 VW Normal [facility] CBC AND AUTO DIFFon 06-24-19 25 ABSOLUTE BASOPHIL 0.1 X10E9/L Normal 0.0-0.2 [facility] Comment on above: Performed By: #### C BCA, CMP, , 2776-04 ####[facility] ([id number])[address], [address] [place] [address] ABSOLUTE NEUTROPHIL 7.0 X10E9/L High 1.5-6.6 [facility] Comment on above: Performed By: #### C BCA, CMP, , 2776-04 ####[facility] ([id number])[address], [address] [place] [address] Basophils/100 WBC (Bld) 1.0 % Normal [facility] Comment on above: Performed By: #### C BCA, CMP, , 2776-04 ####[facility] ([id number])[address], [address] [place] [address] Eosinophils (Bld) [#/Vol] 0.3 10*3/uL Normal 0.0-0.4 [facility] Comment on above: Performed By: #### C EWEILNA CMP, , 2776-04 ####[facility] ([id number])[address] [address] [address] Eosinophils/100 WBC (Bld) 2.7 % Normal [facility] Comment on above: Performed By: #### C BCA, CMP, , 2776-04 ####[facility] ([id number])[address] [address] [address] Erythrocyte distribution width (RBC) [Ratio] 18.6 % High 11.5-15.0 [facility] Comment on above: Performed By: #### C EWELINA, CMP, , 2776-04 ####[facility] ([id number])[address] [address] [address] Hematocrit (Bld) [Volume fraction] 23.7 % Low 35-47 [facility] Comment on above: Performed By: #### C EWELINA, CMP, , 2776-04 ####[facility] ([id number])[address] [address] [address] Hemoglobin (Bld) [Mass/Vol] 7.8 g/dL Low 11.7-15.5 [facility] Comment on above: Performed By: #### C BCA, CMP, , 2776-04 ####[facility] ([id number])[address] [address], [place] [address] Lymphocytes (Bld) [#/Vol] 1.2 10*3/uL Normal 1.0-3.5 [facility] Comment on above: Performed By: #### C BCA, CMP, , 2776-04 ####[facility] ([id number])[address] [address] [place] [address] Lymphocytes/100 WBC (Bld) 12.1 % Normal [facility] Comment on above: Performed By: #### C BCA, CMP, , 2776-04 ####[facility] ([id number])[address] [address] MCH (RBC) [Entitic mass] 31.9 pg Normal 27-34 [facility] Comment on above: Performed By: #### C BCA, CMP, , 2776-04 ####[facility] ([id number])[address] [place] [address] MCHC (RBC) [Mass/Vol] 33.1 g/dL Normal 32-36 [facility] Comment on above: Performed By: #### C BCA, CMP, , 2776-04 ####[facility] ([id number])[address] [place] [address] MCV (RBC) [Entitic vol] 96 fL Normal 80-100 [facility] Comment on above: Performed By: #### C BCA, CMP, , 2776-04 ####[facility] ([id number])[address] [place] [address] Monocytes (Bld) [#/Vol] 1.4 10*3/uL High 0-0.9 [facility] Comment on above: Performed By: #### C BCA, CMP, , 2776-04 ####[facility] ([id number])[address] [address] Monocytes/100 WBC (Bld) 13.9 % Normal [facility] Comment on above: Performed By: #### C BCA, CMP, , 2776-04 ####[facility] ([id number])[address] [place] [address] Neutrophils/100 WBC (Bld) 70.3 % Normal [facility] Comment on above: Performed By: #### C BCA, CMP, , 2776- ####[facility] ([id number])[address] [address] Platelet mean volume (Bld) [Entitic vol] 7.5 fL Normal 7-12 [facility] Comment on above: Performed By: #### C BCA, CMP, , 2776- ####[facility] ([id number])[address], [place] [address] Platelets (Bld) [#/Vol] 244 10*3/uL Normal 150-450 [facility] Comment on above: Performed By: #### C BCA, CMP, , 2776-04 ####[facility] ([id number])[address], [place] [address] RBC COUNT 2.46 X10E12/L Low 3.80-5.20 [facility] Comment on above: Performed By: #### C BCA, CMP, , 2776-04 ####[facility] ([id number])[address], [address] [place] [address] WBC (Bld) [#/Vol] 10.0 10*3/uL Normal 4.0-11.0 [facility] Comment on above: Performed By: #### C BCA, CMP, , 2776-04 ####[facility] ([id number])[address], [address], [place] [address] COMPREHENSIVE METABOLIC PANE Kael 06-23-2024 Albumin [Mass/Vol] 3.6 g/dL Normal 3.2-5.3 [facility] Comment on above: Performed By: #### C BCA, CMP, , 2776- ####[facility] ([id number])[address], [address], [place] [address] ALP [Catalytic activity/Vol] 68 U/L Normal 39-130 [facility] Comment on above: Performed By: #### C BCA, CMP, , 2776- ####[facility] ([id number])[address], [address], [place] [address] ALT [Catalytic activity/Vol] 4 U/L Normal 0-31 [facility] Comment on above: Performed By: #### C BCA, CMP, , 2776-04 ####[facility] ([id number])[address], [address], [place] [address] Anion gap [Moles/Vol] 13 mmol/L Normal 5-15 [facility] Comment on above: Performed By: #### C BCA, CMP, , 2776-04 ####[facility] ([id number])[address], [address], [place] [address] AST [Catalytic activity/Vol] 12 U/L Normal 0-41 [facility] Comment on above: Performed By: #### C BCA, CMP, , 2776-04 ####[facility] ([id number])[address], [address], [place] [address] Bilirubin [Mass/Vol] 0.8 mg/dL Normal 0.3-1.2 [facility] Comment on above: Performed By: #### C BCA, CMP, , 2776-04 ####[facility] ([id number])[address], [address], [place] [address] Calcium [Mass/Vol] 9.7 mg/dL Normal 8.5-10.5 [facility] Comment on above: Performed By: #### C BCA, CMP, , 2776- ####[facility] ([id number])[address], [address], [place] [address] Chloride [Moles/Vol] 101 mmol/L Normal 98-109 [facility] Comment on above: Performed By: #### C EWELINA [facility], , 2776-04 ####[facility] ([id number])[address], [address], [place] [address] CO2 [Moles/Vol] 21 mmol/L Low 22-32 [facility] Comment on above: Performed By: #### C EWELINA [facility], , 2776-04 ####[facility] ([id number])[address], [address] [place] [address] Creatinine [Mass/Vol] 2.08 mg/dL High 0.40-1.00 [facility] Comment on above: Result Comment: METH OD TRACEABLE TO IDMS STANDARD Performed By: #### C EWELINA [facility], , 2776-04 ####[facility] ([id number])[address] [address] [place] [address] GFR/1.73 sq M.predicted among non-blacks MDRD (S/P/Bld) [Vol rate/Area] 27 mL/min/{1.73_m2} Low >59 [facility] Comment on above: Result Comment: Repo rted eGFR is based on theCKD-EPI 2020 equation that doesnot use a race coefficient. Performed By: #### C RENA THEODORE, , 2776-04 ####[facility] ([id number])[address] [address] [place] [address] Glucose [Mass/Vol] 103 mg/dL High 65-99 [facility] Comment on above: Performed By: #### C RENA THEODORE, , 2776-04 ####[facility] ([id number])[address] [address], [place] [address] Potassium [Moles/Vol] 4.3 mmol/L Normal 3.5-5.0 [facility] Comment on above: Performed By: #### C BCA, CMP, , 2776- ####[facility] ([id number])[address], [address], [place] [address] Protein [Mass/Vol] 6.5 g/dL Normal 6.0-8.0 [facility] Comment on above: Performed By: #### C BCA, CMP, , 2776- ####[facility] ([id number])[address], [address], [place] [address] Sodium [Moles/Vol] 135 mmol/L Normal 134-146 [facility] Comment on above: Performed By: #### C BCA, CMP, , 2776-04 ####[facility] ([id number])[address], [address], [place] [address] Urea nitrogen [Mass/Vol] 73 mg/dL High 5-27 [facility] Comment on above: Performed By: #### C BCA, CMP, , 2777-1 ####[facility] ([id number])[address], [address], [place] [address] HGBon 06-23-2024 Hematocrit (Bld) [Volume fraction] 23.2 % Low 35-47 [facility] Comment on above: Performed By: #### H H ####[facility] ([id number])[address], [address], [place] [address] Hemoglobin (Bld) [Mass/Vol] 7.7 g/dL Low 11.7-15.5 [facility] Comment on above: Performed By: #### H H ####[facility] ([id number])[address], [address], [place] [address] Hematocrit (Bld) [Volume fraction] 23.3 % Low 35-47 [facility] Comment on above: Performed By: #### H H ####[facility] ([id number])[address], [address] [address] Hemoglobin (Bld) [Mass/Vol] 7.6 g/dL Low 11.7-15.5 [facility] Comment on above: Performed By: #### H H ####[facility] ([id number])[address] [address] MAGNESIUMon 06-23-2024 Magnesium [Mass/Vol] 2.2 mg/dL Normal 1.8-2.6 [facility] Comment on above: Performed By: #### C BCA, CMP, 81309-0, 2777-1 ####[facility] ([id number])[address], [address], [place] [address] PHOSPHORUSon 06-23-2024 Phosphate [Mass/Vol] 5.1 mg/dL High 2.4-4.9 [facility] Comment on above: Performed By: #### C BCA, CMP, , 2777-1 ####[facility] ([id number])[address], [address] [address] XR CHEST 1 VWon 06-23-2024 XR CHEST 1 VW Normal [facility] ARTERIAL BLOOD GASon 025 ROBERT'S TEST Normal [facility] Comment on above: Performed By: #### A BG ####[facility] ([id number])[address] [place] [address] BASE,DEFICIT 5.0 MMOL/L High 0.0-2.0 [facility] Comment on above: Performed By: #### A BG ####[facility] ([id number])[address] [place] [address] Body temperature 98.6 [degF] Normal 37.0 [facility] Comment on above: Performed By: #### A BG ####[facility] ([id number])[address] [place] [address] HCO3 (Bld) [Moles/Vol] 21.3 mmol/L Low 22-26 [facility] Comment on above: Performed By: #### A BG ####[facility] ([id number])[address] [facility] [place] [address] INSP. O2 CONC. 40 % Normal [facility] Comment on above: Performed By: #### A BG ####[facility] ([id number])[address] [facility] [place] [address] Oxygen (Bld) [Partial pressure] 160 mm[Hg] High 80-100 [facility] Comment on above: Performed By: #### A BG ####[facility] ([id number])[address] [facility] [place] [address] Oxygen saturation in Blood 99.0 % Normal >90 [facility] Comment on above: Performed By: #### A BG ####[facility] ([id number])[address] [facility] [address] OXYGEN SOURCE Vent [facility] Comment on above: Performed By: #### A BG ####[facility] ([id number])[address] [facility] [address] PCO2 44.8 MMHG Normal 35-45 [facility] Comment on above: Performed By: #### A BG ####[facility] ([id number])[address] [place] [place] [address] pH (Bld) 7.286 [pH] Low 7.350-7.45 0 [facility] Comment on above: Performed By: #### A BG ####[facility] ([id number])[address] [facility] [address] SAMPLE SITE Breanne [facility] Comment on above: Performed By: #### A BG ####[facility] ([id number])[address] [place] [address] SAMPLE TYPE ARTERIAL Normal [facility] Comment on above: Performed By: #### A BG ####[facility] ([id number])[address] [place] [address] CBC AND AUTO DIFFon 06-23-19 25 ABSOLUTE BASOPHIL 0.1 X10E9/L Normal 0.0-0.2 [facility] Comment on above: Performed By: #### C BCA ####[facility] ([id number])[address] [address] ABSOLUTE NEUTROPHIL 6.5 X10E9/L Normal 1.5-6.6 [facility] Comment on above: Performed By: #### C BCA ####[facility] ([id number])[address] [address] Basophils/100 WBC (Bld) 1.3 % Normal [facility] Comment on above: Performed By: #### C BCA ####[facility] ([id number])[address] [address] Eosinophils (Bld) [#/Vol] 0.3 10*3/uL Normal 0.0-0.4 [facility] Comment on above: Performed By: #### C BCA ####[facility] ([id number])[address] [address] Eosinophils/100 WBC (Bld) 2.9 % Normal [facility] Comment on above: Performed By: #### C BCA ####[facility] ([id number])[address], [address] [address] Erythrocyte distribution width (RBC) [Ratio] 18.8 % High 11.5-15.0 [facility] Comment on above: Performed By: #### C BCA ####[facility] ([id number])[address], [address], [place] [address] Hematocrit (Bld) [Volume fraction] 24.8 % Low 35-47 [facility] Comment on above: Performed By: #### C BCA ####[facility] ([id number])[address], [address], [place] [address] Hemoglobin (Bld) [Mass/Vol] 8.2 g/dL Low 11.7-15.5 [facility] Comment on above: Performed By: #### C BCA ####[facility] ([id number])[address] [place] [address] Lymphocytes (Bld) [#/Vol] 1.5 10*3/uL Normal 1.0-3.5 [facility] Comment on above: Performed By: #### C BCA ####[facility] ([id number])[address] [place] [address] Lymphocytes/100 WBC (Bld) 16.4 % Normal [facility] Comment on above: Performed By: #### C BCA ####[facility] ([id number])[address], [address] [address] MCH (RBC) [Entitic mass] 31.9 pg Normal 27-34 [facility] Comment on above: Performed By: #### C BCA ####[facility] ([id number])[address], [address] [address] MCHC (RBC) [Mass/Vol] 33.0 g/dL Normal 32-36 [facility] Comment on above: Performed By: #### C BCA ####[facility] ([id number])[address], [address], [place] [address] MCV (RBC) [Entitic vol] 97 fL Normal 80-100 [facility] Comment on above: Performed By: #### C BCA ####[facility] ([id number])[address], [address], [place] [address] Monocytes (Bld) [#/Vol] 1.0 10*3/uL High 0-0.9 [facility] Comment on above: Performed By: #### C BCA ####[facility] ([id number])[address], [place] [address] Monocytes/100 WBC (Bld) 10.3 % Normal [facility] Comment on above: Performed By: #### C BCA ####[facility] ([id number])[address], [address], [place] [address] Neutrophils/100 WBC (Bld) 69.1 % Normal [facility] Comment on above: Performed By: #### C BCA ####[facility] ([id number])[address], [place] [address] Platelet mean volume (Bld) [Entitic vol] 7.4 fL Normal 7-12 [facility] Comment on above: Performed By: #### C BCA ####[facility] ([id number])[address], [place] [address] Platelets (Bld) [#/Vol] 164 10*3/uL Normal 150-450 [facility] Comment on above: Performed By: #### C BCA ####[facility] ([id number])[address], [address], [place] [address] RBC COUNT 2.57 X10E12/L Low 3.80-5.20 [facility] Comment on above: Performed By: #### C BCA ####[facility] ([id number])[address], [address], [place] [address] WBC (Bld) [#/Vol] 9.4 10*3/uL Normal 4.0-11.0 [facility] Comment on above: Performed By: #### C BCA ####[facility] ([id number])[address], [place] [address] COMPREHENSIVE METABOLIC PANE Kael 06-22-2024 Albumin [Mass/Vol] 3.8 g/dL Normal 3.2-5.3 [facility] Comment on above: Performed By: #### C MARY, , 2776-04 ####[facility] ([id number])[address], [address], [place] [address] ALP [Catalytic activity/Vol] 76 U/L Normal 39-130 [facility] Comment on above: Performed By: #### C MARY, , 2776-04 ####[facility] ([id number])[address], [address], [place] [address] ALT [Catalytic activity/Vol] 4 U/L Normal 0-31 [facility] Comment on above: Performed By: #### C MARY, , 2776-04 ####[facility] ([id number])[address], [place] [address] Anion gap [Moles/Vol] 13 mmol/L Normal 5-15 [facility] Comment on above: Performed By: #### C MARY, , 2776-04 ####[facility] ([id number])[address], [place] [address] AST [Catalytic activity/Vol] 17 U/L Normal 0-41 [facility] Comment on above: Performed By: #### C MARY, , 2776-04 ####[facility] ([id number])[address], [place] [address] Bilirubin [Mass/Vol] 0.9 mg/dL Normal 0.3-1.2 [facility] Comment on above: Performed By: #### Bertha HERNANDEZ, , 2776-04 ####[facility] ([id number])[address], [place] [address] Calcium [Mass/Vol] 9.4 mg/dL Normal 8.5-10.5 [facility] Comment on above: Performed By: #### Bertha HERNANDEZ, , 2776-04 ####[facility] ([id number])[address] [place] [address] Chloride [Moles/Vol] 101 mmol/L Normal 98-109 [facility] Comment on above: Performed By: #### Bertha HERNANDEZ, , 2776-04 ####[facility] ([id number])[address] [place] [address] CO2 [Moles/Vol] 21 mmol/L Low 22-32 [facility] Comment on above: Performed By: #### Bertha HERNANDEZ, , 2776-04 ####[facility] ([id number])[address], [place] [address] Creatinine [Mass/Vol] 1.48 mg/dL High 0.40-1.00 [facility] Comment on above: Result Comment: METH OD TRACEABLE TO IDMS STANDARD Performed By: #### Bertha HERNANDEZ, , 2776-04 ####[facility] ([id number])[address] [place] [address] GFR/1.73 sq M.predicted among non-blacks MDRD (S/P/Bld) [Vol rate/Area] 40 mL/min/{1.73_m2} Low >59 [facility] Comment on above: Result Comment: Repo rted eGFR is based on theCKD-EPI 2020 equation that doesnot use a race coefficient. Performed By: #### Bertha HERNANDEZ, , 2776-04 ####[facility] ([id number])[address], [place] [address] Glucose [Mass/Vol] 127 mg/dL High 65-99 [facility] Comment on above: Performed By: #### C MARY, , 2776-04 ####[facility] ([id number])[address], [place] [address] Potassium [Moles/Vol] 3.8 mmol/L Normal 3.5-5.0 [facility] Comment on above: Performed By: #### C MARY, , 2776-04 ####[facility] ([id number])[address], [place] [address] Protein [Mass/Vol] 6.5 g/dL Normal 6.0-8.0 [facility] Comment on above: Performed By: #### Bertha HERNANDEZ, , 2776-04 ####[facility] ([id number])[address], [place] [address] Sodium [Moles/Vol] 135 mmol/L Normal 134-146 [facility] Comment on above: Performed By: #### Bertha HERNANDEZ, , 2776-04 ####[facility] ([id number])[address], [place] [address] Urea nitrogen [Mass/Vol] 40 mg/dL High 5-27 [facility] Comment on above: Performed By: #### Bertha HERNANDEZ, , 2776-04 ####[facility] ([id number])[address], [place] [address] HGBon 06-22-2024 Hematocrit (Bld) [Volume fraction] 24.4 % Low 35-47 [facility] Comment on above: Performed By: #### H H ####[facility] ([id number])[address], [place] [address] Hemoglobin (Bld) [Mass/Vol] 8.1 g/dL Low 11.7-15.5 [facility] Comment on above: Performed By: #### H H ####[facility] ([id number])[address], [place] [address] Hematocrit (Bld) [Volume fraction] 23.6 % Low 35-47 [facility] Comment on above: Performed By: #### H H ####[facility] ([id number])[address], [place] [address] Hemoglobin (Bld) [Mass/Vol] 7.8 g/dL Low 11.7-15.5 [facility] Comment on above: Performed By: #### H H ####[facility] ([id number])[address], [place] [address] Hematocrit (Bld) [Volume fraction] 20.6 % Low 35-47 [facility] Comment on above: Performed By: #### H H ####[facility] ([id number])[address], [place] [address] Hemoglobin (Bld) [Mass/Vol] 6.7 g/dL Critically low 11.7-15.5 [facility] Comment on above: Performed By: #### H H ####[facility] ([id number])[address], [place] [address] MAGNESIUMon 06-22-2024 Magnesium [Mass/Vol] 1.8 mg/dL Normal 1.8-2.6 [facility] Comment on above: Performed By: #### [place], [address]-8, 2777-1 ####[facility] ([id number])[address], [place] [address] Magnesium Ionized ISE (Bld) [Moles/Vol]on 06-22-2024 Magnesium [Moles/Vol] 0.64 mmol/L Normal 0.45-0.74 [facility] Comment on above: Result Comment: NEW REFERENCE RANGE Performed By: #### 7 3572-0 ####[facility] ([id number])[address], [place] [address] PHOSPHORUSon 06-22-2024 Phosphate [Mass/Vol] 3.4 mg/dL Normal 2.4-4.9 [facility] Comment on above: Performed By: #### [place], [address]-6, 2777-1 ####[facility] ([id number])[address] [address] POTASSIUMon 06-22-2024 Potassium [Moles/Vol] 4.0 mmol/L Normal 3.5-5.0 [facility] Comment on above: Performed By: #### 2 823-3 ####[facility] ([id number])[address], [place] [address] XR CHEST 1 VWon 06-22-2024 XR CHEST 1 VW Normal [facility] ARTERIAL BLOOD GASon 025 ROBERT'S TEST Normal [facility] Comment on above: Performed By: #### A BG ####[facility] ([id number])[address] [place] [address] BASE,DEFICIT 10.0 MMOL/L High 0.0-2.0 [facility] Comment on above: Performed By: #### A BG ####[facility] ([id number])[address] [place] [address] Body temperature 98.6 [degF] Normal 37.0 [facility] Comment on above: Performed By: #### A BG ####[facility] ([id number])[address] [place] [address] HCO3 (Bld) [Moles/Vol] 16.6 mmol/L Low 22-26 [facility] Comment on above: Performed By: #### A BG ####[facility] ([id number])[address] [place] [address] INSP. O2 CONC. 40 % Normal [facility] Comment on above: Performed By: #### A BG ####[facility] ([id number])[address] [place] [address] Oxygen (Bld) [Partial pressure] 165 mm[Hg] High 80-100 [facility] Comment on above: Performed By: #### A BG ####[facility] ([id number])[address] [place] [address] Oxygen saturation in Blood 99.0 % Normal >90 [facility] Comment on above: Performed By: #### A BG ####[facility] ([id number])[address] [place] [address] OXYGEN SOURCE Vent [facility] Comment on above: Performed By: #### A BG ####[facility] ([id number])[address] [place] [address] PCO2 36.6 MMHG Normal 35-45 [facility] Comment on above: Performed By: #### A BG ####[facility] ([id number])[address] [place] [address] pH (Bld) 7.265 [pH] Low 7.350-7.45 0 [facility] Comment on above: Performed By: #### A BG ####[facility] ([id number])[address] [place] [address] SAMPLE SITE Breanne [facility] Comment on above: Performed By: #### A BG ####[facility] ([id number])[address] [place] [address] SAMPLE TYPE ARTERIAL Normal [facility] Comment on above: Performed By: #### A BG ####[facility] ([id number])[address] [place] [address] CBC AND AUTO DIFFon 06-22-19 25 ABSOLUTE BASOPHIL 0.1 X10E9/L Normal 0.0-0.2 [facility] Comment on above: Performed By: #### C BCA, CMP, , 2776-04 ####[facility] ([id number])[address] [address] ABSOLUTE NEUTROPHIL 5.1 X10E9/L Normal 1.5-6.6 [facility] Comment on above: Performed By: #### C BCA, CMP, , 2776-04 ####[facility] ([id number])[address] [address] [address] Basophils/100 WBC (Bld) 1.0 % Normal [facility] Comment on above: Performed By: #### C BCA, CMP, , 2776-04 ####[facility] ([id number])[address] [address] [place] [address] Eosinophils (Bld) [#/Vol] 0.2 10*3/uL Normal 0.0-0.4 [facility] Comment on above: Performed By: #### C BCA, CMP, , 2776-04 ####[facility] ([id number])[address] [address] [place] [address] Eosinophils/100 WBC (Bld) 2.7 % Normal [facility] Comment on above: Performed By: #### C BCA, CMP, , 2776-04 ####[facility] ([id number])[address] [address] [address] Erythrocyte distribution width (RBC) [Ratio] 17.5 % High 11.5-15.0 [facility] Comment on above: Performed By: #### C EWELINA CMP, , 2776-04 ####[facility] ([id number])[address] [place] [address] Hematocrit (Bld) [Volume fraction] 21.0 % Low 35-47 [facility] Comment on above: Performed By: #### C EWELINA CMP, , 2776-04 ####[facility] ([id number])[address], [place] [address] Lymphocytes (Bld) [#/Vol] 1.0 10*3/uL Normal 1.0-3.5 [facility] Comment on above: Performed By: #### Bertha THEODORE CMP, , 2776-04 ####[facility] ([id number])[address], [place] [address] Lymphocytes/100 WBC (Bld) 14.1 % Normal [facility] Comment on above: Performed By: #### Bertha THEODORE CMP, , 2776-04 ####[facility] ([id number])[address], [address] [place] [address] MCH (RBC) [Entitic mass] 32.8 pg Normal 27-34 [facility] Comment on above: Performed By: #### C EWELINA, CMP, , 2776-04 ####[facility] ([id number])[address], [address] [place] [address] MCHC (RBC) [Mass/Vol] 33.1 g/dL Normal 32-36 [facility] Comment on above: Performed By: #### C EWELINA, CMP, , 2776-04 ####[facility] ([id number])[address], [address] [place] [address] MCV (RBC) [Entitic vol] 99 fL Normal 80-100 [facility] Comment on above: Performed By: #### C BCA, CMP, , 2776-04 ####[facility] ([id number])[address], [address], [place] [address] Monocytes (Bld) [#/Vol] 0.7 10*3/uL Normal 0-0.9 [facility] Comment on above: Performed By: #### C BCA, CMP, , 2776-04 ####[facility] ([id number])[address], [address], [place] [address] Monocytes/100 WBC (Bld) 10.5 % Normal [facility] Comment on above: Performed By: #### Bertha BCA, CMP, , 2776-04 ####[facility] ([id number])[address], [address], [place] [address] Neutrophils/100 WBC (Bld) 71.7 % Normal [facility] Comment on above: Performed By: #### Bertah BCA, CMP, , 2776-04 ####[facility] ([id number])[address], [address], [place] [address] Platelet mean volume (Bld) [Entitic vol] 7.9 fL Normal 7-12 [facility] Comment on above: Performed By: #### C BCA, CMP, , 2776-04 ####[facility] ([id number])[address], [address], [place] [address] Platelets (Bld) [#/Vol] 78 10*3/uL Low 150-450 [facility] Comment on above: Performed By: #### Bertha BCA, CMP, , 2776-04 ####[facility] ([id number])[address], [address], [place] [address] RBC COUNT 2.12 X10E12/L Low 3.80-5.20 [facility] Comment on above: Performed By: #### C BCA, CMP, , 2776-04 ####[facility] ([id number])[address], [address] [place] [address] WBC (Bld) [#/Vol] 7.1 10*3/uL Normal 4.0-11.0 [facility] Comment on above: Performed By: #### C BCA, CMP, , 2776-04 ####[facility] ([id number])[address], [address] [place] [address] COMPREHENSIVE METABOLIC PANE Kael 06-21-2024 Albumin [Mass/Vol] 3.7 g/dL Normal 3.2-5.3 [facility] Comment on above: Performed By: #### C BCA, CMP, , 2776-04 ####[facility] ([id number])[address], [address] [place] [address] ALP [Catalytic activity/Vol] 66 U/L Normal 39-130 [facility] Comment on above: Performed By: #### C BCA, CMP, , 2776-04 ####[facility] ([id number])[address] [address] [place] [address] 33349 ALT [Catalytic activity/Vol] 3 U/L Normal 0-31 [facility] Comment on above: Performed By: #### C BCA, CMP, , 2776- ####[facility] ([id number])[address] [address] [place] [address] 21266 Anion gap [Moles/Vol] 15 mmol/L Normal 5-15 [facility] Comment on above: Performed By: #### C BCA, CMP, , 2776- ####[facility] ([id number])[address], [address], [place] [address] AST [Catalytic activity/Vol] 11 U/L Normal 0-41 [facility] Comment on above: Performed By: #### C BCA, CMP, , 2776-04 ####[facility] ([id number])[address], [address], [place] [address] Bilirubin [Mass/Vol] 0.7 mg/dL Normal 0.3-1.2 [facility] Comment on above: Performed By: #### C BCA, CMP, , 2776-04 ####[facility] ([id number])[address], [address], [place] [address] Calcium [Mass/Vol] 9.4 mg/dL Normal 8.5-10.5 [facility] Comment on above: Performed By: #### C BCA, CMP, , 2776-04 ####[facility] ([id number])[address], [address], [place] [address] Chloride [Moles/Vol] 107 mmol/L Normal 98-109 [facility] Comment on above: Performed By: #### C BCA, CMP, , 2776-04 ####[facility] ([id number])[address], [address], [place] [address] CO2 [Moles/Vol] 18 mmol/L Low 22-32 [facility] Comment on above: Performed By: #### C BCA, CMP, , 2776-04 ####[facility] ([id number])[address], [address], [place] [address] Creatinine [Mass/Vol] 2.04 mg/dL High 0.40-1.00 [facility] Comment on above: Result Comment: METH OD TRACEABLE TO IDMS STANDARD Performed By: #### C BCA, CMP, , 2777-1 ####[facility] ([id number])[address] [address] [place] [address] GFR/1.73 sq M.predicted among non-blacks MDRD (S/P/Bld) [Vol rate/Area] 27 mL/min/{1.73_m2} Low >59 [facility] Comment on above: Result Comment: Repo rted eGFR is based on theCKD-EPI 2020 equation that doesnot use a race coefficient. Performed By: #### C BCA, CMP, , 2776-04 ####[facility] ([id number])[address] [address] [address] Glucose [Mass/Vol] 98 mg/dL Normal 65-99 [facility] Comment on above: Performed By: #### C BCA, CMP, , 2776-04 ####[facility] ([id number])[address] [address], [place] [address] Potassium [Moles/Vol] 3.8 mmol/L Normal 3.5-5.0 [facility] Comment on above: Performed By: #### C BCA, CMP, , 2776-04 ####[facility] ([id number])[address] [address], [place] [address] Protein [Mass/Vol] 6.1 g/dL Normal 6.0-8.0 [facility] Comment on above: Performed By: #### C BCA, CMP, , 2776-04 ####[facility] ([id number])[address], [address], [place] [address] Sodium [Moles/Vol] 140 mmol/L Normal 134-146 [facility] Comment on above: Performed By: #### C BCA, CMP, , 2776-04 ####[facility] ([id number])[address] [address], [place] [address] Urea nitrogen [Mass/Vol] 55 mg/dL High 5-27 [facility] Comment on above: Performed By: #### C RENA THEODORE, , 2776-04 ####[facility] ([id number])[address], [address] [address] HGBon 06-21-2024 Hematocrit (Bld) [Volume fraction] 21.9 % Low 35-47 [facility] Comment on above: Performed By: #### H H ####[facility] ([id number])[address], [address], [place] [address] Hemoglobin (Bld) [Mass/Vol] 7.1 g/dL Low 11.7-15.5 [facility] Comment on above: Performed By: #### H H ####[facility] ([id number])[address], [address], [place] [address] Hematocrit (Bld) [Volume fraction] 21.6 % Low 35-47 [facility] Comment on above: Performed By: #### H H ####[facility] ([id number])[address], [address] [place] [address] Hemoglobin (Bld) [Mass/Vol] 7.0 g/dL Low 11.7-15.5 [facility] Comment on above: Performed By: #### H H ####[facility] ([id number])[address], [address] [place] [address] Performed By: #### C EWELINA CMP, , 2776-04 ####[facility] ([id number])[address], [address] [place] [address] MAGNESIUMon 06-21-2024 Magnesium [Mass/Vol] 2.0 mg/dL Normal 1.8-2.6 [facility] Comment on above: Performed By: #### C EWELINA, CMP, , 2776-04 ####[facility] ([id number])[address], [address] [place] [address] PHOSPHORUSon 06-21-2024 Phosphate [Mass/Vol] 5.5 mg/dL High 2.4-4.9 [facility] Comment on above: Performed By: #### C BCA, CMP, 96327-7, 2776-04 ####[facility] ([id number])[address], [place] [address] POTASSIUMon 06-21-2024 Potassium [Moles/Vol] 4.0 mmol/L Normal 3.5-5.0 [facility] Comment on above: Performed By: #### 2 823-3 ####[facility] ([id number])[address], [address], [place] [address] XR CHEST 1 VWon 06-21-2024 XR CHEST 1 VW Normal [facility] ARTERIAL BLOOD GASon 025 ROBERT'S TEST Pass Normal [facility] Comment on above: Performed By: #### A BG ####[facility] ([id number])[address] [place] [address] BASE,DEFICIT 6.0 MMOL/L High 0.0-2.0 [facility] Comment on above: Performed By: #### A BG ####[facility] ([id number])[address] [place] [address] Body temperature 98.6 [degF] Normal 37.0 [facility] Comment on above: Performed By: #### A BG ####[facility] ([id number])[address] [place] [address] HCO3 (Bld) [Moles/Vol] 20.1 mmol/L Low 22-26 [facility] Comment on above: Performed By: #### A BG ####[facility] ([id number])[address] [place] [address] INSP. O2 CONC. 40 % Normal [facility] Comment on above: Performed By: #### A BG ####[facility] ([id number])[address] [place] [address] Oxygen (Bld) [Partial pressure] 101 mm[Hg] High 80-100 [facility] Comment on above: Performed By: #### A BG ####[facility] ([id number])[address] [place] [address] Oxygen saturation in Blood 97.0 % Normal >90 [facility] Comment on above: Performed By: #### A BG ####[facility] ([id number])[address] [place] [address] OXYGEN SOURCE [facility] Comment on above: Performed By: #### A BG ####[facility] ([id number])[address] [place] [address] PCO2 43.3 MMHG Normal 35-45 [facility] Comment on above: Performed By: #### A BG ####[facility] ([id number])[address] [place] [address] pH (Bld) 7.274 [pH] Low 7.350-7.45 0 [facility] Comment on above: Performed By: #### A BG ####[facility] ([id number])[address] [place] [address] SAMPLE SITE Breanne [facility] Comment on above: Performed By: #### A BG ####[facility] ([id number])[address] [place] [address] SAMPLE TYPE ARTERIAL Normal [facility] Comment on above: Performed By: #### A BG ####[facility] ([id number])[address] [place] [address] CBC AND AUTO DIFFon 06-21-19 25 ABSOLUTE BASOPHIL 0.1 X10E9/L Normal 0.0-0.2 [facility] Comment on above: Performed By: #### C BCA, CMP, , 2776-04 ####[facility] ([id number])[address], [address], [place] [address] ABSOLUTE NEUTROPHIL 3.8 X10E9/L Normal 1.5-6.6 [facility] Comment on above: Performed By: #### C BCA, CMP, , 2776-04 ####[facility] ([id number])[address], [address] [place] [address] Basophils/100 WBC (Bld) 1.0 % Normal [facility] Comment on above: Performed By: #### C BCA, CMP, , 2776-04 ####[facility] ([id number])[address], [address] [place] [address] Eosinophils (Bld) [#/Vol] 0.3 10*3/uL Normal 0.0-0.4 [facility] Comment on above: Performed By: #### C BCA, CMP, , 2776-04 ####[facility] ([id number])[address] [address] [place] [address] Eosinophils/100 WBC (Bld) 4.8 % Normal [facility] Comment on above: Performed By: #### C BCA, CMP, , 2776-04 ####[facility] ([id number])[address] [address] [place] [address] Erythrocyte distribution width (RBC) [Ratio] 17.9 % High 11.5-15.0 [facility] Comment on above: Performed By: #### C BCA, CMP, , 2776-04 ####[facility] ([id number])[address], [address], [place] [address] Hematocrit (Bld) [Volume fraction] 22.6 % Low 35-47 [facility] Comment on above: Performed By: #### C EWELINA, CMP, , 2776-04 ####[facility] ([id number])[address], [address], [place] [address] Hemoglobin (Bld) [Mass/Vol] 7.2 g/dL Low 11.7-15.5 [facility] Comment on above: Performed By: #### C BCA, CMP, , 2776-04 ####[facility] ([id number])[address], [address] [place] [address] Lymphocytes (Bld) [#/Vol] 1.0 10*3/uL Normal 1.0-3.5 [facility] Comment on above: Performed By: #### C BCA, CMP, , 2776-04 ####[facility] ([id number])[address] [address] [place] [address] Lymphocytes/100 WBC (Bld) 17.1 % Normal [facility] Comment on above: Performed By: #### C BCA, CMP, , 2776-04 ####[facility] ([id number])[address], [address] [place] [address] 89525 MCH (RBC) [Entitic mass] 31.8 pg Normal 27-34 [facility] Comment on above: Performed By: #### C BCA, CMP, , 2776-04 ####[facility] ([id number])[address], [address] [place] [address] MCHC (RBC) [Mass/Vol] 31.8 g/dL Low 32-36 [facility] Comment on above: Performed By: #### C BCA, CMP, , 2776-04 ####[facility] ([id number])[address], [address], [place] [address] MCV (RBC) [Entitic vol] 100 fL Normal 80-100 [facility] Comment on above: Performed By: #### C BCA, CMP, , 2776-04 ####[facility] ([id number])[address], [address], [place] [address] Monocytes (Bld) [#/Vol] 0.7 10*3/uL Normal 0-0.9 [facility] Comment on above: Performed By: #### C BCA, CMP, , 2776-04 ####[facility] ([id number])[address], [address] [place] [address] Monocytes/100 WBC (Bld) 11.9 % Normal [facility] Comment on above: Performed By: #### C BCA, CMP, , 2776-04 ####[facility] ([id number])[address], [address] [place] [address] Neutrophils/100 WBC (Bld) 65.2 % Normal [facility] Comment on above: Performed By: #### C BCA, CMP, , 2776-04 ####[facility] ([id number])[address], [address], [place] [address] Platelet mean volume (Bld) [Entitic vol] 7.6 fL Normal 7-12 [facility] Comment on above: Performed By: #### C BCA, CMP, , 2776-04 ####[facility] ([id number])[address], [address], [place] [address] Platelets (Bld) [#/Vol] 58 10*3/uL Low 150-450 [facility] Comment on above: Performed By: #### C BCA, CMP, , 2776-04 ####[facility] ([id number])[address], [address], [place] [address] RBC COUNT 2.26 X10E12/L Low 3.80-5.20 [facility] Comment on above: Performed By: #### C BCA, CMP, , 2776-04 ####[facility] ([id number])[address], [address] [place] [address] WBC (Bld) [#/Vol] 5.8 10*3/uL Normal 4.0-11.0 [facility] Comment on above: Performed By: #### C BCA, CMP, , 2776-04 ####[facility] ([id number])[address], [address] [place] [address], [place] [address] COMPREHENSIVE METABOLIC PANE Kael 06-20-2024 Albumin [Mass/Vol] 3.6 g/dL Normal 3.2-5.3 [facility] Comment on above: Performed By: #### C BCA, CMP, , 2776-04 ####[facility] ([id number])[address] [address], [place] [address] ALP [Catalytic activity/Vol] 61 U/L Normal 39-130 [facility] Comment on above: Performed By: #### C BCA, CMP, , 2776-04 ####[facility] ([id number])[address] [address], [place] [address] ALT [Catalytic activity/Vol] U/L Normal 0-31 [facility] Comment on above: Performed By: #### C BCA, CMP, , 2776-04 ####[facility] ([id number])[address], [address], [place] [address] Anion gap [Moles/Vol] 10 mmol/L Normal 5-15 [facility] Comment on above: Performed By: #### C BCA, CMP, , 2776-04 ####[facility] ([id number])[address], [address], [place] [address] AST [Catalytic activity/Vol] 11 U/L Normal 0-41 [facility] Comment on above: Performed By: #### C BCA, CMP, , 2776-04 ####[facility] ([id number])[address], [address], [place] [address] Bilirubin [Mass/Vol] 0.8 mg/dL Normal 0.3-1.2 [facility] Comment on above: Performed By: #### C BCA, CMP, , 2776-04 ####[facility] ([id number])[address], [address], [place] [address] Calcium [Mass/Vol] 9.0 mg/dL Normal 8.5-10.5 [facility] Comment on above: Performed By: #### C BCA, CMP, , 2776-04 ####[facility] ([id number])[address], [address], [place] [address] Chloride [Moles/Vol] 108 mmol/L Normal 98-109 [facility] Comment on above: Performed By: #### C BCA, CMP, , 2776-04 ####[facility] ([id number])[address], [address], [place] [address] CO2 [Moles/Vol] 21 mmol/L Low 22-32 [facility] Comment on above: Performed By: #### C BCA, CMP, , 2776-04 ####[facility] ([id number])[address], [address], [place] [address] Creatinine [Mass/Vol] 1.44 mg/dL High 0.40-1.00 [facility] Comment on above: Result Comment: METH OD TRACEABLE TO IDMS STANDARD Performed By: #### C RENA THEODORE, , 2776-04 ####[facility] ([id number])[address] [address], [place] [address] GFR/1.73 sq M.predicted among non-blacks MDRD (S/P/Bld) [Vol rate/Area] 41 mL/min/{1.73_m2} Low >59 [facility] Comment on above: Result Comment: Repo rted eGFR is based on theCKD-EPI 2020 equation that doesnot use a race coefficient. Performed By: #### C RENA THEODORE, , 2776-04 ####[facility] ([id number])[address] [address], [place] [address] Glucose [Mass/Vol] 82 mg/dL Normal 65-99 [facility] Comment on above: Performed By: #### C EWELINA CMP, , 2776-04 ####[facility] ([id number])[address] [address], [place] [address] Potassium [Moles/Vol] 3.7 mmol/L Normal 3.5-5.0 [facility] Comment on above: Performed By: #### C RENA THEODORE, 2776-04 ####[facility] ([id number])[address] [address], [place] [address] Protein [Mass/Vol] 5.8 g/dL Low 6.0-8.0 [facility] Comment on above: Performed By: #### C EWELINA CMP, , 2776-04 ####[facility] ([id number])[address] [address], [place] [address] Sodium [Moles/Vol] 139 mmol/L Normal 134-146 [facility] Comment on above: Performed By: #### C EWELINA CMP, 08215-22776-04 ####[facility] ([id number])[address], [address], [place] [address] Urea nitrogen [Mass/Vol] 30 mg/dL High 5-27 [facility] Comment on above: Performed By: #### C BCA, CMP, 30542-5, 2776-04 ####[facility] ([id number])[address], [address], [place] [address] HGBon 06-20-2024 Hematocrit (Bld) [Volume fraction] 21.9 % Low 35-47 [facility] Comment on above: Performed By: #### H H ####[facility] ([id number])[address], [address], [place] [address] Hemoglobin (Bld) [Mass/Vol] 7.2 g/dL Low 11.7-15.5 [facility] Comment on above: Performed By: #### H H ####[facility] ([id number])[address], [address], [place] [address] Hematocrit (Bld) [Volume fraction] 23.0 % Low 35-47 [facility] Comment on above: Performed By: #### H H ####[facility] ([id number])[address], [address], [place] [address] Hemoglobin (Bld) [Mass/Vol] 7.5 g/dL Low 11.7-15.5 [facility] Comment on above: Performed By: #### H H ####[facility] ([id number])[address], [address], [place] [address] Lactate (P mikey) [Moles/Vol]o n 06-20-2024 LACTATE W/REFLEX 1.4 mmol/L Normal 0.4-2.0 [facility] Comment on above: Result Comment: Resu lt did not trigger repeat Lactate,re-order if needed. Performed By: #### 3 2133-1 ####[facility] ([id number])[address] [address] MAGNESIUMon 06-20-2024 Magnesium [Mass/Vol] 2.1 mg/dL Normal 1.8-2.6 [facility] Comment on above: Performed By: #### C BCA, CMP, , 2776-1 ####[facility] ([id number])[address] [address] PHOSPHORUSon 06-20-2024 Phosphate [Mass/Vol] 4.3 mg/dL Normal 2.4-4.9 [facility] Comment on above: Performed By: #### C BCA, CMP, , 2776-04 ####[facility] ([id number])[address], [place] [address] XR CHEST 1 VWon 06-20-2024 XR CHEST 1 VW Normal [facility] CBC AND AUTO DIFFon 06-20-19 25 ABSOLUTE BASOPHIL 0.1 X10E9/L Normal 0.0-0.2 [facility] Comment on above: Performed By: #### C BCA, CMP, , 2776-04 ####[facility] ([id number])[address] [address], [place] [address] ABSOLUTE NEUTROPHIL 3.5 X10E9/L Normal 1.5-6.6 [facility] Comment on above: Performed By: #### C BCA, CMP, , 2776-04 ####[facility] ([id number])[address], [address] [place] [address] Basophils/100 WBC (Bld) 1.2 % Normal [facility] Comment on above: Performed By: #### C BCA, CMP, , 2776-04 ####[facility] ([id number])[address], [address] [place] [address] Eosinophils (Bld) [#/Vol] 0.3 10*3/uL Normal 0.0-0.4 [facility] Comment on above: Performed By: #### C EWELINA CMP, , 2776-04 ####[facility] ([id number])[address], [address] [address] Eosinophils/100 WBC (Bld) 4.7 % Normal [facility] Comment on above: Performed By: #### C EWELINA, CMP, , 2776-04 ####[facility] ([id number])[address], [address] [address] Erythrocyte distribution width (RBC) [Ratio] 17.6 % High 11.5-15.0 [facility] Comment on above: Performed By: #### Bertha THEODORE CMP, , 2776-04 ####[facility] ([id number])[address] [address] [place] [address] Hematocrit (Bld) [Volume fraction] 22.5 % Low 35-47 [facility] Comment on above: Performed By: #### Bertha THEODORE, CMP, , 2776-04 ####[facility] ([id number])[address] [address] [place] [address] Hemoglobin (Bld) [Mass/Vol] 7.4 g/dL Low 11.7-15.5 [facility] Comment on above: Performed By: #### C EWELINA, CMP, , 2776-04 ####[facility] ([id number])[address] [address] Lymphocytes (Bld) [#/Vol] 1.2 10*3/uL Normal 1.0-3.5 [facility] Comment on above: Performed By: #### Bertha THEODORE, CMP, , 2777-1 ####[facility] ([id number])[address] [address] Lymphocytes/100 WBC (Bld) 21.1 % Normal [facility] Comment on above: Performed By: #### C BCA, CMP, , 2776-04 ####[facility] ([id number])[address], [place] [address] MCH (RBC) [Entitic mass] 31.7 pg Normal 27-34 [facility] Comment on above: Performed By: #### C BCA, CMP, , 2776-04 ####[facility] ([id number])[address] [address] MCHC (RBC) [Mass/Vol] 32.7 g/dL Normal 32-36 [facility] Comment on above: Performed By: #### C BCA, CMP, , 2776-04 ####[facility] ([id number])[address] [address] [address] MCV (RBC) [Entitic vol] 97 fL Normal 80-100 [facility] Comment on above: Performed By: #### C BCA, CMP, , 2776-04 ####[facility] ([id number])[address], [address] [place] [address] Monocytes (Bld) [#/Vol] 0.8 10*3/uL Normal 0-0.9 [facility] Comment on above: Performed By: #### C BCA, CMP, , 2776-04 ####[facility] ([id number])[address] [address] [address] Monocytes/100 WBC (Bld) 13.6 % Normal [facility] Comment on above: Performed By: #### C BCA, CMP, , 2777-1 ####[facility] ([id number])[address], [address] [address] Neutrophils/100 WBC (Bld) 59.4 % Normal [facility] Comment on above: Performed By: #### C BCA, CMP, , 2776-1 ####[facility] ([id number])[address], [address], [place] [address] Platelet mean volume (Bld) [Entitic vol] 7.0 fL Normal 7-12 [facility] Comment on above: Performed By: #### C BCA, CMP, , 2776- ####[facility] ([id number])[address] [address] [address] Platelets (Bld) [#/Vol] 65 10*3/uL Low 150-450 [facility] Comment on above: Performed By: #### C BCA, CMP, , 2776-04 ####[facility] ([id number])[address] [address] [place] [address] RBC COUNT 2.32 X10E12/L Low 3.80-5.20 [facility] Comment on above: Performed By: #### C BCA, CMP, , 2776-04 ####[facility] ([id number])[address] [address] [address] WBC (Bld) [#/Vol] 5.9 10*3/uL Normal 4.0-11.0 [facility] Comment on above: Performed By: #### C BCA, CMP, , 2776- ####[facility] ([id number])[address], [address], [place] [address] COMPREHENSIVE METABOLIC PANE Kael 06-19-2024 Albumin [Mass/Vol] 3.2 g/dL Normal 3.2-5.3 [facility] Comment on above: Performed By: #### C BCA, CMP, , 2776-04 ####[facility] ([id number])[address], [address], [place] [address] ALP [Catalytic activity/Vol] 65 U/L Normal 39-130 [facility] Comment on above: Performed By: #### C BCA, CMP, , 2776-04 ####[facility] ([id number])[address], [address], [place] [address] ALT [Catalytic activity/Vol] 4 U/L Normal 0-31 [facility] Comment on above: Performed By: #### C BCA, CMP, , 2776-04 ####[facility] ([id number])[address], [place] [address] Anion gap [Moles/Vol] 8 mmol/L Normal 5-15 [facility] Comment on above: Performed By: #### C BCA, CMP, , 2776-04 ####[facility] ([id number])[address], [place] [address] AST [Catalytic activity/Vol] 11 U/L Normal 0-41 [facility] Comment on above: Performed By: #### C BCA, CMP, , 2776-04 ####[facility] ([id number])[address], [address], [place] [address] Bilirubin [Mass/Vol] 1.1 mg/dL Normal 0.3-1.2 [facility] Comment on above: Performed By: #### C BCA, CMP, , 2776-04 ####[facility] ([id number])[address], [address], [place] [address] Calcium [Mass/Vol] 8.6 mg/dL Normal 8.5-10.5 [facility] Comment on above: Performed By: #### C BCA, CMP, , 2776-04 ####[facility] ([id number])[address] [address], [place] [address] Chloride [Moles/Vol] 107 mmol/L Normal 98-109 [facility] Comment on above: Performed By: #### C BCA, CMP, , 2776-04 ####[facility] ([id number])[address], [place] [address] CO2 [Moles/Vol] 23 mmol/L Normal 22-32 [facility] Comment on above: Performed By: #### C BCA, CMP, , 2776-04 ####[facility] ([id number])[address], [address] [place] [address] Creatinine [Mass/Vol] 0.88 mg/dL Normal 0.40-1.00 [facility] Comment on above: Result Comment: METH OD TRACEABLE TO IDMS STANDARD Performed By: #### C RENA THEODORE, , 2776-04 ####[facility] ([id number])[address] [address] GFR/1.73 sq M.predicted among non-blacks MDRD (S/P/Bld) [Vol rate/Area] 75 mL/min/{1.73_m2} Normal >59 [facility] Comment on above: Result Comment: Repo rted eGFR is based on theCKD-EPI 2020 equation that doesnot use a race coefficient. Performed By: #### C BCA, CMP, , 2776-04 ####[facility] ([id number])[address] [address] [place] [address] Glucose [Mass/Vol] 108 mg/dL High 65-99 [facility] Comment on above: Performed By: #### C BCA, CMP, , 2776-04 ####[facility] ([id number])[address] [address] Potassium [Moles/Vol] 3.4 mmol/L Low 3.5-5.0 [facility] Comment on above: Performed By: #### C EWELINA, CMP, , 1 ####[facility] ([id number])[address], [address], [place] [address] Protein [Mass/Vol] 5.5 g/dL Low 6.0-8.0 [facility] Comment on above: Performed By: #### C EWELINA, CMP, , 2776-04 ####[facility] ([id number])[address] [place] [address] Sodium [Moles/Vol] 138 mmol/L Normal 134-146 [facility] Comment on above: Performed By: #### C EWELINA, CMP, , 2776-04 ####[facility] ([id number])[address], [address] [place] [address] Urea nitrogen [Mass/Vol] 9 mg/dL Normal 5-27 [facility] Comment on above: Performed By: #### C BCA, CMP, , 2776-04 ####[facility] ([id number])[address], [address] [place] [address] MAGNESIUMon 06-19-2024 Magnesium [Mass/Vol] 1.8 mg/dL Normal 1.8-2.6 [facility] Comment on above: Performed By: #### C BCA, CMP, , 2776-04 ####[facility] ([id number])[address], [address], [place] [address] Magnesium Ionized ISE (Bld) [Moles/Vol]on 06-19-2024 Magnesium [Moles/Vol] 0.62 mmol/L Normal 0.45-0.74 [facility] Comment on above: Result Comment: NEW REFERENCE RANGE Performed By: #### 7 3572-0 ####[facility] ([id number])[address], [address], [place] [address] PHOSPHORUSon 06-19-2024 Phosphate [Mass/Vol] 4.2 mg/dL Normal 2.4-4.9 [facility] Comment on above: Performed By: #### 2 823-3, 277-1 ####[facility] ([id number])[address], [address] [place] [address] Phosphate [Mass/Vol] 2.1 mg/dL Low 2.4-4.9 [facility] Comment on above: Performed By: #### C BCA, CMP, , 2776-04 ####[facility] ([id number])[address], [address] [place] [address] POTASSIUMon 06-19-2024 Potassium [Moles/Vol] 4.1 mmol/L Normal 3.5-5.0 [facility] Comment on above: Performed By: #### 2 823-3, 2776-04 ####[facility] ([id number])[address], [address] [place] [address] XR CHEST 1 VWon 06-19-2024 XR CHEST 1 VW Normal [facility] CBC AND AUTO DIFFon 06-19-19 25 ABSOLUTE BASOPHIL 0.1 X10E9/L Normal 0.0-0.2 [facility] Comment on above: Performed By: #### C BCA, CMP, LIVR, , 2776-04 ####[facility] ([id number])[address], [address], [place] [address] ABSOLUTE NEUTROPHIL 3.6 X10E9/L Normal 1.5-6.6 [facility] Comment on above: Performed By: #### C BCA, CMP, LIVR, , 2776-04 ####[facility] ([id number])[address] [address] [place] [address] Basophils/100 WBC (Bld) 1.5 % Normal [facility] Comment on above: Performed By: #### C BCA, CMP, LIVR, , 2776-04 ####[facility] ([id number])[address] [address], [place] [address] Eosinophils (Bld) [#/Vol] 0.2 10*3/uL Normal 0.0-0.4 [facility] Comment on above: Performed By: #### C BCA, CMP, LIVR, , 2776-04 ####[facility] ([id number])[address] [address], [place] [address] Eosinophils/100 WBC (Bld) 3.9 % Normal [facility] Comment on above: Performed By: #### C BCA, CMP, LIVR, , 2776-04 ####[facility] ([id number])[address] [address] Erythrocyte distribution width (RBC) [Ratio] 17.2 % High 11.5-15.0 [facility] Comment on above: Performed By: #### C BCA, CMP, LIVR, , 2776-04 ####[facility] ([id number])[address] [address], [place] [address] Hematocrit (Bld) [Volume fraction] 24.3 % Low 35-47 [facility] Comment on above: Performed By: #### C BCA, CMP, LIVR, , 2776-04 ####[facility] ([id number])[address] [address], [place] [address] Hemoglobin (Bld) [Mass/Vol] 8.1 g/dL Low 11.7-15.5 [facility] Comment on above: Performed By: #### C BCA, CMP, LIVR, , 2776-04 ####[facility] ([id number])[address] [address] [place] [address] Lymphocytes (Bld) [#/Vol] 1.2 10*3/uL Normal 1.0-3.5 [facility] Comment on above: Performed By: #### C BCA, CMP, LIVR, , 2776-04 ####[facility] ([id number])[address] [address] [place] [address] Lymphocytes/100 WBC (Bld) 20.1 % Normal [facility] Comment on above: Performed By: #### C BCA, CMP, LIVR, , 2776-04 ####[facility] ([id number])[address], [address] [place] [address] MCH (RBC) [Entitic mass] 32.1 pg Normal 27-34 [facility] Comment on above: Performed By: #### C BCA, CMP, LIVR, , 2776-04 ####[facility] ([id number])[address] [address] [place] [address] MCHC (RBC) [Mass/Vol] 33.2 g/dL Normal 32-36 [facility] Comment on above: Performed By: #### C BCA, CMP, LIVR, , 2776-04 ####[facility] ([id number])[address] [address] [place] [address] MCV (RBC) [Entitic vol] 97 fL Normal 80-100 [facility] Comment on above: Performed By: #### C BCA, CMP, LIVR, , 2776-04 ####[facility] ([id number])[address], [address] [place] [address] Monocytes (Bld) [#/Vol] 0.8 10*3/uL Normal 0-0.9 [facility] Comment on above: Performed By: #### C BCA, CMP, LIVR, , 2776-04 ####[facility] ([id number])[address], [address] [address] Monocytes/100 WBC (Bld) 13.1 % Normal [facility] Comment on above: Performed By: #### C BCA, CMP, LIVR, , 2776-04 ####[facility] ([id number])[address], [address] [place] [address] Neutrophils/100 WBC (Bld) 61.4 % Normal [facility] Comment on above: Performed By: #### C BCA, CMP, LIVR, , 2776-04 ####[facility] ([id number])[address] [address] [place] [address] Platelet mean volume (Bld) [Entitic vol] 6.6 fL Low 7-12 [facility] Comment on above: Performed By: #### C BCA, CMP, LIVR, , 2776-04 ####[facility] ([id number])[address] [address] Platelets (Bld) [#/Vol] 77 10*3/uL Low 150-450 [facility] Comment on above: Performed By: #### C BCA, CMP, LIVR, , 2776-04 ####[facility] ([id number])[address] [place] [address] RBC COUNT 2.52 X10E12/L Low 3.80-5.20 [facility] Comment on above: Performed By: #### C BCA, CMP, LIVR, , 2776-04 ####[facility] ([id number])[address], [address], [place] [address] WBC (Bld) [#/Vol] 5.8 10*3/uL Normal 4.0-11.0 [facility] Comment on above: Performed By: #### C BCA, CMP, LIVR, , 2776-04 ####[facility] ([id number])[address], [address], [place] [address] COMPREHENSIVE METABOLIC PANE Kael 06-18-2024 Albumin [Mass/Vol] 2.8 g/dL Low 3.2-5.3 [facility] Comment on above: Performed By: #### C BCA, CMP, LIVR, , 2776-04 ####[facility] ([id number])[address], [address] [place] [address] ALP [Catalytic activity/Vol] 78 U/L Normal 39-130 [facility] Comment on above: Performed By: #### C BCA, CMP, LIVR, , 2776-04 ####[facility] ([id number])[address], [address], [place] [address] ALT [Catalytic activity/Vol] 3 U/L Normal 0-31 [facility] Comment on above: Performed By: #### C BCA, CMP, LIVR, , 2776-04 ####[facility] ([id number])[address], [address], [place] [address] Anion gap [Moles/Vol] 7 mmol/L Normal 5-15 [facility] Comment on above: Performed By: #### C BCA, CMP, LIVR, , 2776-04 ####[facility] ([id number])[address], [address], [place] [address] AST [Catalytic activity/Vol] 15 U/L Normal 0-41 [facility] Comment on above: Performed By: #### C BCA, CMP, LIVR, , 2776-04 ####[facility] ([id number])[address], [address], [place] [address] Bilirubin [Mass/Vol] 1.2 mg/dL Normal 0.3-1.2 [facility] Comment on above: Performed By: #### C BCA, CMP, LIVR, , 2776-04 ####[facility] ([id number])[address], [address], [place] [address] Calcium [Mass/Vol] 8.6 mg/dL Normal 8.5-10.5 [facility] Comment on above: Performed By: #### C BCA, CMP, LIVR, , 2776-04 ####[facility] ([id number])[address], [address], [place] [address] Chloride [Moles/Vol] 106 mmol/L Normal 98-109 [facility] Comment on above: Performed By: #### C BCA, CMP, LIVR, , 2776-04 ####[facility] ([id number])[address], [address], [place] [address] CO2 [Moles/Vol] 26 mmol/L Normal 22-32 [facility] Comment on above: Performed By: #### C BCA, CMP, LIVR, , 2776-04 ####[facility] ([id number])[address], [address], [place] [address] Creatinine [Mass/Vol] 0.72 mg/dL Normal 0.40-1.00 [facility] Comment on above: Result Comment: METH OD TRACEABLE TO IDMS STANDARD Performed By: #### C BCA, CMP, LIVR, , 2776-04 ####[facility] ([id number])[address], [place] [address] eGFR (CKD-EPI) NON-RACE DEPENDENT >90 Normal >59 [facility] Comment on above: Result Comment: Repo rted eGFR is based on theCKD-EPI 2020 equation that doesnot use a race coefficient. Performed By: #### C BCA, CMP, LIVR, , 2776-04 ####[facility] ([id number])[address] [address], [place] [address] Glucose [Mass/Vol] 95 mg/dL Normal 65-99 [facility] Comment on above: Performed By: #### C BCA, CMP, LIVR, , 2776-04 ####[facility] ([id number])[address] [address], [place] [address] Potassium [Moles/Vol] 3.9 mmol/L Normal 3.5-5.0 [facility] Comment on above: Performed By: #### C BCA, CMP, LIVR, , 2776-04 ####[facility] ([id number])[address] [address], [place] [address] Protein [Mass/Vol] 5.5 g/dL Low 6.0-8.0 [facility] Comment on above: Performed By: #### C BCA, CMP, LIVR, , 2776-04 ####[facility] ([id number])[address] [address], [place] [address] Sodium [Moles/Vol] 139 mmol/L Normal 134-146 [facility] Comment on above: Performed By: #### C BCA, CMP, LIVR, , 2776-04 ####[facility] ([id number])[address] [address] [place] [address] Urea nitrogen [Mass/Vol] 8 mg/dL Normal 5-27 [facility] Comment on above: Performed By: #### C BCA, CMP, LIVR, , 2776-04 ####[facility] ([id number])[address] [place] [address] LIVER PANELon 06-18-2024 Bilirubin.direct [Mass/Vol] 0.7 mg/dL High 0.0-0.4 [facility] Comment on above: Performed By: #### C BCA, CMP, LIVR, , 1 ####[facility] ([id number])[address], [place] [address] MAGNESIUMon 06-18-2024 Magnesium [Mass/Vol] 1.9 mg/dL Normal 1.8-2.6 [facility] Comment on above: Performed By: #### C BCA, CMP, LIVR, , 2776-04 ####[facility] ([id number])[address] [place] [address] PHOSPHORUSon 06-18-2024 Phosphate [Mass/Vol] 3.1 mg/dL Normal 2.4-4.9 [facility] Comment on above: Performed By: #### C BCA, CMP, LIVR, , 1 ####[facility] ([id number])[address] [place] [address] PROTIME AND INRon 06-18-2024 INR Coag (PPP) [Relative time] 1.1 {INR} Normal 0.9-1.2 [facility] Comment on above: Performed By: #### P INR, 72385-5 ####[facility] ([id number])[address], [address], [place] [address] PT Coag (PPP) [Time] 13.0 s Normal 9.8-13.2 [facility] Comment on above: Performed By: #### P INR, 39583-7 ####[facility] ([id number])[address], [address] [place] [address] XR CHEST 1 VWon 06-18-2024 XR CHEST 1 VW Normal [facility] aPTT Coag (PPP) [Time]on aPTT Coag (Bld) [Time] 31 s Normal 26-37 Pr [facility] Comment on above: Performed By: #### P INR, 38443-6 ####[facility] ([id number])[address], [address] [place] [address] CBC AND AUTO DIFFon 06-18-19 25 ABSOLUTE BASOPHIL 0.1 X10E9/L Normal 0.0-0.2 [facility] Comment on above: Performed By: #### C BCA, CMP, LIVR, , 2776-04 ####[facility] ([id number])[address] [address] [place] [address] ABSOLUTE NEUTROPHIL 3.2 X10E9/L Normal 1.5-6.6 [facility] Comment on above: Performed By: #### C BCA, CMP, LIVR, , 2776-04 ####[facility] ([id number])[address] [address] [place] [address] Basophils/100 WBC (Bld) 1.4 % Normal [facility] Comment on above: Performed By: #### C BCA, CMP, LIVR, , 2776-04 ####[facility] ([id number])[address] [address] [place] [address] Eosinophils (Bld) [#/Vol] 0.1 10*3/uL Normal 0.0-0.4 [facility] Comment on above: Performed By: #### C BCA, CMP, LIVR, , 2776-04 ####[facility] ([id number])[address] [address] [place] [address] Eosinophils/100 WBC (Bld) 2.4 % Normal [facility] Comment on above: Performed By: #### C BCA, CMP, LIVR, , 2776-04 ####[facility] ([id number])[address] [address] [place] [address] Erythrocyte distribution width (RBC) [Ratio] 17.5 % High 11.5-15.0 [facility] Comment on above: Performed By: #### C BCA, CMP, LIVR, , 2776-04 ####[facility] ([id number])[address] [address] Hematocrit (Bld) [Volume fraction] 24.5 % Low 35-47 [facility] Comment on above: Performed By: #### C BCA, CMP, LIVR, , 2776-04 ####[facility] ([id number])[address] [address] [place] [address] Hemoglobin (Bld) [Mass/Vol] 8.3 g/dL Low 11.7-15.5 [facility] Comment on above: Performed By: #### C BCA, CMP, LIVR, , 2776-04 ####[facility] ([id number])[address] [address] Lymphocytes (Bld) [#/Vol] 0.9 10*3/uL Low 1.0-3.5 [facility] Comment on above: Performed By: #### C BCA, CMP, LIVR, , 2776-04 ####[facility] ([id number])[address] [address] Lymphocytes/100 WBC (Bld) 19.3 % Normal [facility] Comment on above: Performed By: #### C BCA, CMP, LIVR, , 2776-04 ####[facility] ([id number])[address], [place] [address] MCH (RBC) [Entitic mass] 32.3 pg Normal 27-34 [facility] Comment on above: Performed By: #### C BCA, CMP, LIVR, , 2776-04 ####[facility] ([id number])[address], [place] [address] MCHC (RBC) [Mass/Vol] 33.8 g/dL Normal 32-36 [facility] Comment on above: Performed By: #### C BCA, CMP, LIVR, , 2776-04 ####[facility] ([id number])[address] [place] [address] MCV (RBC) [Entitic vol] 96 fL Normal 80-100 [facility] Comment on above: Performed By: #### C BCA, CMP, LIVR, , 2776-04 ####[facility] ([id number])[address] [address], [place] [address] Monocytes (Bld) [#/Vol] 0.5 10*3/uL Normal 0-0.9 [facility] Comment on above: Performed By: #### C BCA, CMP, LIVR, , 2776-04 ####[facility] ([id number])[address] [address], [place] [address] Monocytes/100 WBC (Bld) 10.6 % Normal [facility] Comment on above: Performed By: #### C BCA, CMP, LIVR, , 2776-04 ####[facility] ([id number])[address] [address] [address] Neutrophils/100 WBC (Bld) 66.3 % Normal [facility] Comment on above: Performed By: #### C BCA, CMP, LIVR, , 2776-04 ####[facility] ([id number])[address] [address] [place] [address] Platelet mean volume (Bld) [Entitic vol] 6.8 fL Low 7-12 [facility] Comment on above: Performed By: #### C BCA, CMP, LIVR, , 2776-04 ####[facility] ([id number])[address] [address] [place] [address] Platelets (Bld) [#/Vol] 87 10*3/uL Low 150-450 [facility] Comment on above: Performed By: #### C BCA, CMP, LIVR, , 2776-04 ####[facility] ([id number])[address] [address] RBC COUNT 2.56 X10E12/L Low 3.80-5.20 [facility] Comment on above: Performed By: #### C BCA, CMP, LIVR, , 2776-04 ####[facility] ([id number])[address] [address] WBC (Bld) [#/Vol] 4.8 10*3/uL Normal 4.0-11.0 [facility] Comment on above: Performed By: #### C BCA, CMP, LIVR, , 2776-04 ####[facility] ([id number])[address] [address] [place] [address] COMPREHENSIVE METABOLIC PANE Kael 06-17-2024 Albumin [Mass/Vol] 2.8 g/dL Low 3.2-5.3 [facility] Comment on above: Performed By: #### C BCA, CMP, LIVR, , 2776-04 ####[facility] ([id number])[address], [place] [address] ALP [Catalytic activity/Vol] 76 U/L Normal 39-130 [facility] Comment on above: Performed By: #### C BCA, CMP, LIVR, , 2776-04 ####[facility] ([id number])[address], [place] [address] ALT [Catalytic activity/Vol] 4 U/L Normal 0-31 [facility] Comment on above: Performed By: #### C BCA, CMP, LIVR, , 2776-04 ####[facility] ([id number])[address], [place] [address] Anion gap [Moles/Vol] 9 mmol/L Normal 5-15 [facility] Comment on above: Performed By: #### C BCA, CMP, LIVR, , 2776-04 ####[facility] ([id number])[address], [place] [address] Performed By: #### E LEC, ####[facility] ([id number])[address], [place] [address] AST [Catalytic activity/Vol] 15 U/L Normal 0-41 [facility] Comment on above: Performed By: #### C BCA, CMP, LIVR, , 2776-04 ####[facility] ([id number])[address], [place] [address] Bilirubin [Mass/Vol] 1.5 mg/dL High 0.3-1.2 [facility] Comment on above: Performed By: #### C BCA, CMP, LIVR, , 2776-04 ####[facility] ([id number])[address], [place] [address] Calcium [Mass/Vol] 8.5 mg/dL Normal 8.5-10.5 [facility] Comment on above: Performed By: #### C BCA, CMP, LIVR, , 2776-04 ####[facility] ([id number])[address], [place] [address] CO2 [Moles/Vol] 26 mmol/L Normal 22-32 [facility] Comment on above: Performed By: #### C BCA, CMP, LIVR, , 2776-04 ####[facility] ([id number])[address], [address] [place] [address] Creatinine [Mass/Vol] 0.90 mg/dL Normal 0.40-1.00 [facility] Comment on above: Result Comment: METH OD TRACEABLE TO IDMS STANDARD Performed By: #### C BCA, CMP, LIVR, , 2776-04 ####[facility] ([id number])[address] [address] [place] [address] GFR/1.73 sq M.predicted among non-blacks MDRD (S/P/Bld) [Vol rate/Area] 73 mL/min/{1.73_m2} Normal >59 [facility] Comment on above: Result Comment: Repo rted eGFR is based on theCKD-EPI 2020 equation that doesnot use a race coefficient. Performed By: #### C BCA, CMP, LIVR, , 2776-04 ####[facility] ([id number])[address], [place] [address] Glucose [Mass/Vol] 79 mg/dL Normal 65-99 [facility] Comment on above: Performed By: #### C BCA, CMP, LIVR, , 2776-04 ####[facility] ([id number])[address], [place] [address] Potassium [Moles/Vol] 4.0 mmol/L Normal 3.5-5.0 [facility] Comment on above: Performed By: #### C BCA, CMP, LIVR, , 2776-04 ####[facility] ([id number])[address], [address] [address] Protein [Mass/Vol] 5.0 g/dL Low 6.0-8.0 [facility] Comment on above: Performed By: #### C BCA, CMP, LIVR, , 2776-04 ####[facility] ([id number])[address], [address], [place] [address] Urea nitrogen [Mass/Vol] 7 mg/dL Normal 5-27 [facility] Comment on above: Performed By: #### C BCA, CMP, LIVR, , 2776-04 ####[facility] ([id number])[address] [address] [place] [address] Chloride [Moles/Vol] 105 mmol/L Normal 98-109 [facility] Comment on above: Performed By: #### C BCA, CMP, LIVR, , 2776-04 ####[facility] ([id number])[address], [address] [address] Performed By: #### E LEC, ####[facility] ([id number])[address], [address] [place] [address] Sodium [Moles/Vol] 140 mmol/L Normal 134-146 [facility] Comment on above: Performed By: #### C BCA, CMP, LIVR, , 2776-04 ####[facility] ([id number])[address], [address], [place] [address] Performed By: #### E LEC, ####[facility] ([id number])[address], [address], [place] [address] Calcium.ionized (Bld) [Mass/ Vol]on 06-17-2024 IONIZED CALCIUM 4.9 mg/dL Normal 4.5-5.3 [facility] Comment on above: Performed By: #### 3 8230-9, 85961-0 ####[facility] ([id number])[address], [address] [place] [address] ELECTROLYTESon 06-17-2024 Anion gap [Moles/Vol] 10 mmol/L Normal 5-15 [facility] Comment on above: Performed By: #### E LEC, , 2776-04 ####[facility] ([id number])[address] [address] Chloride [Moles/Vol] 106 mmol/L Normal 98-109 [facility] Comment on above: Performed By: #### E LEC, , 2776-04 ####[facility] ([id number])[address], [address] [address] CO2 [Moles/Vol] 25 mmol/L Normal 22-32 [facility] Comment on above: Performed By: #### E LEC, , 2776-04 ####[facility] ([id number])[address], [address] [place] [address] Potassium [Moles/Vol] 4.1 mmol/L Normal 3.5-5.0 [facility] Comment on above: Performed By: #### E LEC, , 2776-04 ####[facility] ([id number])[address], [address] [place] [address] Performed By: #### E LEC, ####[facility] ([id number])[address] [place] [place] [address] Sodium [Moles/Vol] 141 mmol/L Normal 134-146 [facility] Comment on above: Performed By: #### E LEC, , 2777-1 ####[facility] ([id number])[address], [place] [address] Anion gap [Moles/Vol] 10 mmol/L Normal 5-15 [facility] Comment on above: Performed By: #### E LEC, ####[facility] ([id number])[address], [place] [address] CO2 [Moles/Vol] 25 mmol/L Normal 22-32 [facility] Comment on above: Performed By: #### E LEC, ####[facility] ([id number])[address], [address], [place] [address] Potassium [Moles/Vol] 4.2 mmol/L Normal 3.5-5.0 [facility] Comment on above: Performed By: #### E LEC, ####[facility] ([id number])[address], [address], [place] [address] Chloride [Moles/Vol] 104 mmol/L Normal 98-109 [facility] Comment on above: Performed By: #### E LEC, ####[facility] ([id number])[address], [address], [place] [address] CO2 [Moles/Vol] 27 mmol/L Normal 22-32 [facility] Comment on above: Performed By: #### E LEC, ####[facility] ([id number])[address], [address], [place] [address] Anion gap [Moles/Vol] 10 mmol/L Normal 5-15 [facility] Comment on above: Performed By: #### E LEC, ####[facility] ([id number])[address], [place] [address] Chloride [Moles/Vol] 105 mmol/L Normal 98-109 [facility] Comment on above: Performed By: #### E LEC, ####[facility] ([id number])[address], [address], [place] [address] CO2 [Moles/Vol] 25 mmol/L Normal 22-32 [facility] Comment on above: Performed By: #### E LEC, ####[facility] ([id number])[address], [address], [place] [address] Potassium [Moles/Vol] 3.9 mmol/L Normal 3.5-5.0 [facility] Comment on above: Performed By: #### E LEC, ####[facility] ([id number])[address], [address], [place] [address] Sodium [Moles/Vol] 140 mmol/L Normal 134-146 [facility] Comment on above: Performed By: #### E LEC, ####[facility] ([id number])[address], [address], [place] [address] LIVER PANELon 06-17-2024 Bilirubin.direct [Mass/Vol] 0.7 mg/dL High 0.0-0.4 [facility] Comment on above: Performed By: #### C BCA, CMP, LIVR, , 27771 ####[facility] ([id number])[address], [address], [place] [address] MAGNESIUMon 06-17-2024 Magnesium [Mass/Vol] 2.3 mg/dL Normal 1.8-2.6 [facility] Comment on above: Performed By: #### E LEC, , 2777-1 ####[facility] ([id number])[address], [address], [place] [address] Magnesium [Mass/Vol] 2.0 mg/dL Normal 1.8-2.6 [facility] Comment on above: Performed By: #### C BCA, CMP, LIVR, , 2777 ####[facility] ([id number])[address], [address], [place] [address] Performed By: #### E LEC, ####[facility] ([id number])[address] [address] [address] Magnesium [Mass/Vol] 1.8 mg/dL Normal 1.8-2.6 [facility] Comment on above: Performed By: #### Cyndie LEC, ####[facility] ([id number])[address] [address] [address] Magnesium [Mass/Vol] 2.1 mg/dL Normal 1.8-2.6 [facility] Comment on above: Performed By: #### E LEC, ####[facility] ([id number])[address] [address] [place] [address], [place] [address] Performed By: #### C BCA, CMP, LIVR, , 27771 ####[facility] ([id number])[address] [address] [place] [address], [place] [address] Magnesium Ionized ISE (Bld) [Moles/Vol]on 06-17-2024 Magnesium [Moles/Vol] 0.63 mmol/L Normal 0.45-0.74 [facility] Comment on above: Result Comment: NEW REFERENCE RANGE Performed By: #### 3 8230-9, 77267-1 ####[facility] ([id number])[address] [address] [place] [address] PHOSPHORUSon 06-17-2024 Phosphate [Mass/Vol] 2.1 mg/dL Low 2.4-4.9 [facility] Comment on above: Performed By: #### E LEC, , 2776-04 ####[facility] ([id number])[address], [address], [place] [address] Phosphate [Mass/Vol] 2.8 mg/dL Normal 2.4-4.9 [facility] Comment on above: Performed By: #### C BCA, CMP, LIVR, , 2776-04 ####[facility] ([id number])[address], [address], [place] [address] PROTIME AND INRon 06-17-2024 INR Coag (PPP) [Relative time] 1.2 {INR} Normal 0.9-1.2 [facility] Comment on above: Performed By: #### P INR, 43823-0 ####[facility] ([id number])[address], [address], [place] [address] PT Coag (PPP) [Time] 13.3 s High 9.8-13.2 [facility] Comment on above: Performed By: #### P INR, 59129-6 ####[facility] ([id number])[address], [address], [place] [address] INR Coag (PPP) [Relative time] 1.2 {INR} Normal 0.9-1.2 [facility] Comment on above: Performed By: #### P INR, 22940-6 ####[facility] ([id number])[address], [address], [place] [address] PT Coag (PPP) [Time] 13.9 s High 9.8-13.2 [facility] Comment on above: Performed By: #### P INR, 09397-5 ####[facility] ([id number])[address], [address], [place] [address] Vancomycin [Mass/Vol]on 06-08 VANCOMYCIN 15.8 ug/mL Normal 5.0-40.0 [facility] Comment on above: Result Comment: Peak 30-40 ug/mLTrough 5-20 ug/ml Performed By: #### 2 0578-1 ####[facility] ([id number])[address], [address] [place] [address] XR ABD NG TUBE PLACEMENT 1 V IEWon 06-17-2024 XR ABD NG TUBE PLACEMENT 1 VIEW Normal [facility] XR CHEST 1 VWon 06-17-2024 XR CHEST 1 VW Normal [facility] aPTT Coag (PPP) [Time]on aPTT Coag (Bld) [Time] 31 s Normal 26-37 [facility] Comment on above: Performed By: #### P INR, 04079-6 ####[facility] ([id number])[address], [address] [place] [address] aPTT Coag (Bld) [Time] 33 s Normal 26-37 [facility] Comment on above: Performed By: #### P INR, 74336-9 ####[facility] ([id number])[address], [address] [place] [address] ARTERIAL BLOOD GASon 025 ROBERT'S TEST Normal [facility] Comment on above: Performed By: #### A BG ####[facility] ([id number])[address] [place] [address] Base excess Calc (Bld) [Moles/Vol] 0.0 mmol/L Normal 0.0-2.0 [facility] Comment on above: Performed By: #### A BG ####[facility] ([id number])[address] [place] [address] Body temperature 98.6 [degF] Normal 37.0 [facility] Comment on above: Performed By: #### A BG ####[facility] ([id number])[address] [place] [address] HCO3 (Bld) [Moles/Vol] 23.5 mmol/L Normal 22-26 P [facility] Comment on above: Performed By: #### A BG ####[facility] ([id number])[address] [place] [address] INSP. O2 CONC. 40 % Normal [facility] Comment on above: Performed By: #### A BG ####[facility] ([id number])[address] [facility] [place] [address] Oxygen (Bld) [Partial pressure] 66 mm[Hg] Low 80-100 [facility] Comment on above: Performed By: #### A BG ####[facility] ([id number])[address] [place] [address] Oxygen saturation in Blood 94.0 % Normal >90 [facility] Comment on above: Performed By: #### A BG ####[facility] ([id number])[address] [place] [address] OXYGEN SOURCE Vent Normal [facility] Comment on above: Performed By: #### A BG ####[facility] ([id number])[address] [place] [address] PCO2 34.6 MMHG Low 35-45 [facility] Comment on above: Performed By: #### A BG ####[facility] ([id number])[address] [facility] [place] [address] pH (Bld) 7.440 [pH] Normal 7.350-7.45 0 [facility] Comment on above: Performed By: #### A BG ####[facility] ([id number])[address] [place] [address] SAMPLE SITE Breanne Normal [facility] Comment on above: Performed By: #### A BG ####[facility] ([id number])[address] [place] [address] SAMPLE TYPE ARTERIAL Normal [facility] Comment on above: Performed By: #### A BG ####[facility] ([id number])[address] [place] [address] CBC AND AUTO DIFFon 06-17-19 25 ABSOLUTE BASOPHIL 0.1 X10E9/L Normal 0.0-0.2 [facility] Comment on above: Performed By: #### C BCA, CMP, LIVR, , 2776-04 ####[facility] ([id number])[address] [address] ABSOLUTE NEUTROPHIL 2.4 X10E9/L Normal 1.5-6.6 [facility] Comment on above: Performed By: #### C BCA, CMP, LIVR, , 2776-04 ####[facility] ([id number])[address], [address] [address] Basophils/100 WBC (Bld) 1.2 % Normal P [facility] Comment on above: Performed By: #### C BCA, CMP, LIVR, , 2776-04 ####[facility] ([id number])[address], [address] [address] Eosinophils (Bld) [#/Vol] 0.1 10*3/uL Normal 0.0-0.4 [facility] Comment on above: Performed By: #### C BCA, CMP, LIVR, , 2776-04 ####[facility] ([id number])[address], [address], [place] [address] Eosinophils/100 WBC (Bld) 2.7 % Normal [facility] Comment on above: Performed By: #### C BCA, CMP, LIVR, , 2776-04 ####[facility] ([id number])[address] [address] [address] Erythrocyte distribution width (RBC) [Ratio] 17.3 % High 11.5-15.0 [facility] Comment on above: Performed By: #### C BCA, CMP, LIVR, , 2776-04 ####[facility] ([id number])[address] [address] Hematocrit (Bld) [Volume fraction] 23.9 % Low 35-47 [facility] Comment on above: Performed By: #### C BCA, CMP, LIVR, , 2776-04 ####[facility] ([id number])[address] [address] [address] Hemoglobin (Bld) [Mass/Vol] 8.1 g/dL Low 11.7-15.5 [facility] Comment on above: Performed By: #### C BCA, CMP, LIVR, , 2776-04 ####[facility] ([id number])[address] [address] Lymphocytes (Bld) [#/Vol] 1.0 10*3/uL Normal 1.0-3.5 [facility] Comment on above: Performed By: #### C BCA, CMP, LIVR, , 2776-04 ####[facility] ([id number])[address] [address] Lymphocytes/100 WBC (Bld) 23.8 % Normal [facility] Comment on above: Performed By: #### C BCA, CMP, LIVR, , 2776-04 ####[facility] ([id number])[address] [address] MCH (RBC) [Entitic mass] 32.0 pg Normal 27-34 [facility] Comment on above: Performed By: #### C BCA, CMP, LIVR, , 2776-04 ####[facility] ([id number])[address], [address], [place] [address] MCHC (RBC) [Mass/Vol] 33.9 g/dL Normal 32-36 [facility] Comment on above: Performed By: #### C BCA, CMP, LIVR, , 2776-04 ####[facility] ([id number])[address], [address], [place] [address] MCV (RBC) [Entitic vol] 94 fL Normal 80-100 [facility] Comment on above: Performed By: #### C BCA, CMP, LIVR, , 2776-04 ####[facility] ([id number])[address], [address] [address] Monocytes (Bld) [#/Vol] 0.6 10*3/uL Normal 0-0.9 [facility] Comment on above: Performed By: #### C BCA, CMP, LIVR, , 2776-04 ####[facility] ([id number])[address], [address] [address] Monocytes/100 WBC (Bld) 13.8 % Normal P [facility] Comment on above: Performed By: #### C BCA, CMP, LIVR, , 2776-04 ####[facility] ([id number])[address], [address] [address] Neutrophils/100 WBC (Bld) 58.5 % Normal [facility] Comment on above: Performed By: #### C BCA, CMP, LIVR, , 2776-04 ####[facility] ([id number])[address] [address] [place] [address] Platelet mean volume (Bld) [Entitic vol] 7.3 fL Normal 7-12 [facility] Comment on above: Performed By: #### C BCA, CMP, LIVR, , 2776-04 ####[facility] ([id number])[address] [address] Platelets (Bld) [#/Vol] 99 10*3/uL Low 150-450 [facility] Comment on above: Performed By: #### C BCA, CMP, LIVR, , 2776-04 ####[facility] ([id number])[address] [address] RBC COUNT 2.53 X10E12/L Low 3.80-5.20 [facility] Comment on above: Performed By: #### C BCA, CMP, LIVR, , 2776-04 ####[facility] ([id number])[address] [address] WBC (Bld) [#/Vol] 4.2 10*3/uL Normal 4.0-11.0 [facility] Comment on above: Performed By: #### C BCA, CMP, LIVR, , 2776-04 ####[facility] ([id number])[address] [address] [place] [address] COMPREHENSIVE METABOLIC PANE Kael 06-16-2024 ALP [Catalytic activity/Vol] 74 U/L Normal 39-130 [facility] Comment on above: Performed By: #### C BCA, CMP, LIVR, , 2776-04 ####[facility] ([id number])[address], [place] [address] Anion gap [Moles/Vol] 11 mmol/L Normal 5-15 [facility] Comment on above: Performed By: #### C BCA, CMP, LIVR, , 2776-04 ####[facility] ([id number])[address], [place] [address] AST [Catalytic activity/Vol] 14 U/L Normal 0-41 [facility] Comment on above: Performed By: #### C BCA, CMP, LIVR, , 2776-04 ####[facility] ([id number])[address], [address], [place] [address] Calcium [Mass/Vol] 8.6 mg/dL Normal 8.5-10.5 [facility] Comment on above: Performed By: #### C BCA, CMP, LIVR, , 2776-04 ####[facility] ([id number])[address], [place] [address] Chloride [Moles/Vol] 103 mmol/L Normal 98-109 [facility] Comment on above: Performed By: #### C BCA, CMP, LIVR, , 2776-04 ####[facility] ([id number])[address], [place] [address] CO2 [Moles/Vol] 24 mmol/L Normal 22-32 [facility] Comment on above: Performed By: #### C BCA, CMP, LIVR, , 2776-04 ####[facility] ([id number])[address], [place] [address] Creatinine [Mass/Vol] 1.31 mg/dL High 0.40-1.00 [facility] Comment on above: Result Comment: METH OD TRACEABLE TO IDMS STANDARD Performed By: #### C BCA, CMP, LIVR, , 2776-04 ####[facility] ([id number])[address] [address], [place] [address] GFR/1.73 sq M.predicted among non-blacks MDRD (S/P/Bld) [Vol rate/Area] 46 mL/min/{1.73_m2} Low >59 [facility] Comment on above: Result Comment: Repo rted eGFR is based on theCKD-EPI 2020 equation that doesnot use a race coefficient. Performed By: #### C BCA, CMP, LIVR, , 2776-04 ####[facility] ([id number])[address] [address] [place] [address] Glucose [Mass/Vol] 87 mg/dL Normal 65-99 [facility] Comment on above: Performed By: #### C BCA, CMP, LIVR, , 2776-04 ####[facility] ([id number])[address] [address] [place] [address] Protein [Mass/Vol] 5.1 g/dL Low 6.0-8.0 [facility] Comment on above: Performed By: #### C BCA, CMP, LIVR, , 2776-04 ####[facility] ([id number])[address] [address] [place] [address] Urea nitrogen [Mass/Vol] 14 mg/dL Normal 5-27 [facility] Comment on above: Performed By: #### C BCA, CMP, LIVR, , 2776-04 ####[facility] ([id number])[address] [address] [place] [address] Albumin [Mass/Vol] 2.9 g/dL Low 3.2-5.3 [facility] Comment on above: Performed By: #### C BCA, CMP, LIVR, , 2776-04 ####[facility] ([id number])[address], [place] [address] Performed By: #### L IVR ####[facility] ([id number])[address], [place] [address] ALT [Catalytic activity/Vol] 4 U/L Normal 0-31 [facility] Comment on above: Performed By: #### C BCA, CMP, LIVR, , 2776-04 ####[facility] ([id number])[address], [place] [address] Performed By: #### L IVR ####[facility] ([id number])[address], [place] [address] Bilirubin [Mass/Vol] 1.4 mg/dL High 0.3-1.2 [facility] Comment on above: Performed By: #### C BCA, CMP, LIVR, , 2776-04 ####[facility] ([id number])[address] [address], [place] [address] Performed By: #### L IVR ####[facility] ([id number])[address], [place] [address] ELECTROLYTESon 06-16-2024 Anion gap [Moles/Vol] 8 mmol/L Normal 5-15 [facility] Comment on above: Performed By: #### E LEC, , 2776-04 ####[facility] ([id number])[address], [place] [address] Chloride [Moles/Vol] 105 mmol/L Normal 98-109 [facility] Comment on above: Performed By: #### E LEC, , 2776-04 ####[facility] ([id number])[address], [place] [address] CO2 [Moles/Vol] 25 mmol/L Normal 22-32 [facility] Comment on above: Performed By: #### E LEC, , 2776-04 ####[facility] ([id number])[address], [place] [address] Potassium [Moles/Vol] 3.9 mmol/L Normal 3.5-5.0 [facility] Comment on above: Performed By: #### E LEC, , 2776-04 ####[facility] ([id number])[address], [place] [address] Performed By: #### C BCA, CMP, LIVR, , 2776-04 ####[facility] ([id number])[address], [place] [address] Sodium [Moles/Vol] 138 mmol/L Normal 134-146 [facility] Comment on above: Performed By: #### E LEC, , 2776-04 ####[facility] ([id number])[address], [place] [address] Performed By: #### C BCA, CMP, LIVR, , 2776-04 ####[facility] ([id number])[address], [place] [address] Anion gap [Moles/Vol] 7 mmol/L Normal 5-15 [facility] Comment on above: Performed By: #### E LEC, ####[facility] ([id number])[address], [place] [address] Chloride [Moles/Vol] 105 mmol/L Normal 98-109 [facility] Comment on above: Performed By: #### E LEC, ####[facility] ([id number])[address], [place] [address] CO2 [Moles/Vol] 26 mmol/L Normal 22-32 [facility] Comment on above: Performed By: #### E LEC, ####[facility] ([id number])[address], [place] [address] Potassium [Moles/Vol] 3.9 mmol/L Normal 3.5-5.0 [facility] Comment on above: Performed By: #### E LEC, ####[facility] ([id number])[address] [address] Sodium [Moles/Vol] 138 mmol/L Normal 134-146 [facility] Comment on above: Performed By: #### E LEC, ####[facility] ([id number])[address] [address] LIVER PANELon 06-16-2024 ALP [Catalytic activity/Vol] 79 U/L Normal 39-130 [facility] Comment on above: Performed By: #### L IVR ####[facility] ([id number])[address] [place] [address] AST [Catalytic activity/Vol] 15 U/L Normal 0-41 [facility] Comment on above: Performed By: #### L IVR ####[facility] ([id number])[address] [address] [place] [address] Bilirubin.direct [Mass/Vol] 0.7 mg/dL High 0.0-0.4 [facility] Comment on above: Performed By: #### C BCA, CMP, LIVR, , 2777-1 ####[facility] ([id number])[address], [place] [address] Performed By: #### L IVR ####[facility] ([id number])[address], [place] [address] Protein [Mass/Vol] 5.2 g/dL Low 6.0-8.0 [facility] Comment on above: Performed By: #### L IVR ####[facility] ([id number])[address], [place] [address] MAGNESIUMon 06-16-2024 Magnesium [Mass/Vol] 1.8 mg/dL Normal 1.8-2.6 [facility] Comment on above: Performed By: #### E LEC, , 2776-04 ####[facility] ([id number])[address] [place] [address] Magnesium [Mass/Vol] 1.9 mg/dL Normal 1.8-2.6 [facility] Comment on above: Performed By: #### E LEC, ####[facility] ([id number])[address] [place] [address] PHOSPHORUSon 06-16-2024 Phosphate [Mass/Vol] 2.3 mg/dL Low 2.4-4.9 [facility] Comment on above: Performed By: #### E LEC, , 2776-04 ####[facility] ([id number])[address], [address] [place] [address] Phosphate [Mass/Vol] 3.1 mg/dL Normal 2.4-4.9 [facility] Comment on above: Performed By: #### C BCA, CMP, LIVR, , 2776-04 ####[facility] ([id number])[address], [address], [place] [address] PROTIME AND INRon 06-16-2024 PT Coag (PPP) [Time] 14.5 s High 9.8-13.2 [facility] Comment on above: Performed By: #### P INR, 35723-2 ####[facility] ([id number])[address], [address] [place] [address] INR Coag (PPP) [Relative time] 1.3 {INR} High 0.9-1.2 [facility] Comment on above: Performed By: #### P INR, 09808-2 ####[facility] ([id number])[address], [address] [place] [address] PT Coag (PPP) [Time] 15.1 s High 9.8-13.2 [facility] Comment on above: Performed By: #### P INR, 03358-3 ####[facility] ([id number])[address], [address] [place] [address] Vancomycin [Mass/Vol]on VANCOMYCIN 15.8 ug/mL Normal 5.0-40.0 [facility] Comment on above: Result Comment: Peak 30-40 ug/mLTrough 5-20 ug/ml Performed By: #### 2 0578-1 ####[facility] ([id number])[address], [address] [place] [address]26 XR CHEST 1 VWon 06-16-2024 XR CHEST 1 VW Normal [facility] aPTT Coag (PPP) [Time]on aPTT Coag (Bld) [Time] 33 s Normal 26-37 [facility] Comment on above: Performed By: #### P INR, 57897-1 ####[facility] ([id number])[address], [address] [place] [address] aPTT Coag (Bld) [Time] 32 s Normal 26-37 [facility] Comment on above: Performed By: #### P INR, 60752-7 ####[facility] ([id number])[address], [address] [place] [address], [place] [address] ARTERIAL BLOOD GASon 025 ROBERT'S TEST Normal [facility] Comment on above: Performed By: #### A BG ####[facility] ([id number])[address] [facility] [place] [address] BASE,DEFICIT 6.0 MMOL/L High 0.0-2.0 [facility] Comment on above: Performed By: #### A BG ####[facility] ([id number])[address] [facility] [place] [address] Body temperature 98.6 [degF] Normal 37.0 [facility] Comment on above: Performed By: #### A BG ####[facility] ([id number])[address] [facility] [place] [address] HCO3 (Bld) [Moles/Vol] 17.9 mmol/L Low 22-26 P [facility] Comment on above: Performed By: #### A BG ####[facility] ([id number])[address] [facility] [place] [address] INSP. O2 CONC. 40 % Normal [facility] Comment on above: Performed By: #### A BG ####[facility] ([id number])[address] [facility] [place] [address] Oxygen (Bld) [Partial pressure] 96 mm[Hg] Normal 80-100 [facility] Comment on above: Performed By: #### A BG ####[facility] ([id number])[address] [place] [address] Oxygen saturation in Blood 98.0 % Normal >90 [facility] Comment on above: Performed By: #### A BG ####[facility] ([id number])2141 [facility] [place] [address] OXYGEN SOURCE Vent Normal [facility] Comment on above: Performed By: #### A BG ####[facility] ([id number])2141 [place] [address] PCO2 28.0 MMHG Low 35-45 [facility] Comment on above: Performed By: #### A BG ####[facility] ([id number])2141 [place] [address] pH (Bld) 7.414 [pH] Normal 7.350-7.45 0 [facility] Comment on above: Performed By: #### A BG ####[facility] ([id number])2141 [place] [address] SAMPLE SITE Breanne Normal [facility] Comment on above: Performed By: #### A BG ####[facility] ([id number])2141 [place] [address] SAMPLE TYPE ARTERIAL Normal [facility] Comment on above: Performed By: #### A BG ####[facility] ([id number])2141 [place] [address] BLOOD CULTUREon 06-15-2024 Bacteria identified Aer cx Nom (Bld) CULTURE RESULTS NO GROWTH 5 DAYS Normal [facility] CBC AND AUTO DIFFon 06-16-19 25 ABSOLUTE BASOPHIL 0.0 X10E9/L Normal 0.0-0.2 [facility] Comment on above: Performed By: #### C MARY LIVR, 78202-4, 2777-, CBCA ####[facility] ([id number])[address], [address] [place] [address] ABSOLUTE NEUTROPHIL 2.7 X10E9/L Normal 1.5-6.6 [facility] Comment on above: Performed By: #### C MARY LIVR, 38271-6, 2777-1, CBCA ####[facility] ([id number])[address] [facility] [address], [place] [address] Basophils/100 WBC (Bld) 1.2 % Normal [facility] Comment on above: Performed By: #### C MP, LIVR, , 2776-04, CBCA ####[facility] ([id number])[address] [address] [address] Eosinophils (Bld) [#/Vol] 0.0 10*3/uL Normal 0.0-0.4 [facility] Comment on above: Performed By: #### C MARY, LIVR, , 2776-04, CBCA ####[facility] ([id number])[address] [address] [place] [address] Eosinophils/100 WBC (Bld) 0.8 % Normal [facility] Comment on above: Performed By: #### C MARY, LIVR, , 2776-04, CBCA ####[facility] ([id number])[address] [address] [place] [address] Erythrocyte distribution width (RBC) [Ratio] 17.3 % High 11.5-15.0 [facility] Comment on above: Performed By: #### C MP, LIVR, , 2776-04, CBCA ####[facility] ([id number])[address] [address] [place] [address] Hematocrit (Bld) [Volume fraction] 22.1 % Low 35-47 [facility] Comment on above: Performed By: #### C MP, LIVR, , 2776-04, CBCA ####[facility] ([id number])[address] [address] Hemoglobin (Bld) [Mass/Vol] 7.6 g/dL Low 11.7-15.5 [facility] Comment on above: Performed By: #### C MP, LIVR, , 2776-04, CBCA ####[facility] ([id number])[address] [address] [place] [address] Lymphocytes (Bld) [#/Vol] 0.7 10*3/uL Low 1.0-3.5 [facility] Comment on above: Performed By: #### C MARY, LIVR, , 2776-04, CBCA ####[facility] ([id number])[address], [address] [place] [address] Lymphocytes/100 WBC (Bld) 19.1 % Normal [facility] Comment on above: Performed By: #### C MARY, [facility], , 2776-04, CBCA ####[facility] ([id number])[address] [address] [place] [address] MCH (RBC) [Entitic mass] 32.9 pg Normal 27-34 [facility] Comment on above: Performed By: #### C MARY, [facility], , 2776-04, CBCA ####[facility] ([id number])[address] [address] MCHC (RBC) [Mass/Vol] 34.6 g/dL Normal 32-36 [facility] Comment on above: Performed By: #### C MARY, LIVR, , 2776-04, CBCA ####[facility] ([id number])[address] [address] [place] [address] MCV (RBC) [Entitic vol] 95 fL Normal 80-100 [facility] Comment on above: Performed By: #### C MARY, LIVR, , 2776-04, CBCA ####[facility] ([id number])[address] [address] [place] [address] Monocytes (Bld) [#/Vol] 0.3 10*3/uL Normal 0-0.9 [facility] Comment on above: Performed By: #### C MP, LIVR, , 2776-04, CBCA ####[facility] ([id number])[address], [address], [place] [address] Monocytes/100 WBC (Bld) 7.7 % Normal [facility] Comment on above: Performed By: #### C MP, LIVR, , 2776-04, CBCA ####[facility] ([id number])[address], [address], [place] [address] Neutrophils/100 WBC (Bld) 71.2 % Normal [facility] Comment on above: Performed By: #### C MP, LIVR, , 2776-04, CBCA ####[facility] ([id number])[address], [address], [place] [address] Platelet mean volume (Bld) [Entitic vol] 7.1 fL Normal 7-12 [facility] Comment on above: Performed By: #### C MP, LIVR, , 2776-04, CBCA ####[facility] ([id number])[address] [address] [place] [address], [place] [address] Platelets (Bld) [#/Vol] 93 10*3/uL Low 150-450 [facility] Comment on above: Performed By: #### C MP, LIVR, , 2776-04, CBCA ####[facility] ([id number])[address] [address] [place] [address] RBC COUNT 2.32 X10E12/L Low 3.80-5.20 [facility] Comment on above: Performed By: #### C MP, LIVR, , 2776-04, CBCA ####[facility] ([id number])[address], [address] [place] [address] WBC (Bld) [#/Vol] 3.8 10*3/uL Low 4.0-11.0 [facility] Comment on above: Performed By: #### C MP, LIVR, , 2776-04, CBCA ####[facility] ([id number])[address], [address] [place] [address] COMPREHENSIVE METABOLIC PANE Kael 06-15-2024 Albumin [Mass/Vol] 3.3 g/dL Normal 3.2-5.3 [facility] Comment on above: Performed By: #### C MARY, LIVR, , 2776-04, CBCA ####[facility] ([id number])[address], [address], [place] [address] ALP [Catalytic activity/Vol] 80 U/L Normal 39-130 [facility] Comment on above: Performed By: #### C MP, LIVR, , 2776-04, CBCA ####[facility] ([id number])[address], [address], [place] [address] ALT [Catalytic activity/Vol] 6 U/L Normal 0-31 [facility] Comment on above: Performed By: #### C MARY, LIVR, , 2776-04, CBCA ####[facility] ([id number])[address], [address] [place] [address] Anion gap [Moles/Vol] 12 mmol/L Normal 5-15 [facility] Comment on above: Performed By: #### C MP, LIVR, , 2776-04, CBCA ####[facility] ([id number])[address], [address] [place] [address] AST [Catalytic activity/Vol] 12 U/L Normal 0-41 [facility] Comment on above: Performed By: #### C MARY, LIVR, , 2776-04, CBCA ####[facility] ([id number])[address], [address], [place] [address] Bilirubin [Mass/Vol] 2.0 mg/dL High 0.3-1.2 [facility] Comment on above: Performed By: #### C MP, LIVR, , 2776-04, CBCA ####[facility] ([id number])[address], [address], [place] [address] Calcium [Mass/Vol] 8.7 mg/dL Normal 8.5-10.5 [facility] Comment on above: Performed By: #### C MP, LIVR, , 2776-04, CBCA ####[facility] ([id number])[address], [address], [place] [address] Chloride [Moles/Vol] 100 mmol/L Normal 98-109 [facility] Comment on above: Performed By: #### C MARY, LIVR, , 2776-04, CBCA ####[facility] ([id number])[address], [address], [place] [address] CO2 [Moles/Vol] 22 mmol/L Normal 22-32 [facility] Comment on above: Performed By: #### C MP, LIVR, , 2776-04, CBCA ####[facility] ([id number])[address], [address], [place] [address] Creatinine [Mass/Vol] 2.42 mg/dL High 0.40-1.00 [facility] Comment on above: Result Comment: METH OD TRACEABLE TO IDMS STANDARD Performed By: #### C MP, LIVR, , 2776-04, CBCA ####[facility] ([id number])[address] [address] GFR/1.73 sq M.predicted among non-blacks MDRD (S/P/Bld) [Vol rate/Area] 22 mL/min/{1.73_m2} Low >59 [facility] Comment on above: Result Comment: Repo rted eGFR is based on theCKD-EPI 2020 equation that doesnot use a race coefficient. Performed By: #### C HAMIDA HERNANDEZ, , 2776-04, CBCA ####[facility] ([id number])[address] [address] Glucose [Mass/Vol] 98 mg/dL Normal 65-99 [facility] Comment on above: Performed By: #### C HAMIDA HERNANDEZ, , 2776-04, CBCA ####[facility] ([id number])[address] [address] Protein [Mass/Vol] 5.1 g/dL Low 6.0-8.0 [facility] Comment on above: Performed By: #### C HAMIDA HERNANDEZ, , 2776-04, CBCA ####[facility] ([id number])[address] [address] Sodium [Moles/Vol] 134 mmol/L Normal 134-146 [facility] Comment on above: Performed By: #### C HAMIDA HERNANDEZ, , 2776-04, CBCA ####[facility] ([id number])[address] [address] Urea nitrogen [Mass/Vol] 29 mg/dL High 5-27 [facility] Comment on above: Performed By: #### C MARY LIVR, , 2776-04, CBCA ####[facility] ([id number])[address] [address] ELECTROLYTESon 06-15-2024 CO2 [Moles/Vol] 24 mmol/L Normal 22-32 [facility] Comment on above: Performed By: #### E LEC, , 2776-04 ####[facility] ([id number])[address], [address], [place] [address] Potassium [Moles/Vol] 3.6 mmol/L Normal 3.5-5.0 [facility] Comment on above: Performed By: #### E LEC, , 2776-04 ####[facility] ([id number])[address], [address], [place] [address] Sodium [Moles/Vol] 137 mmol/L Normal 134-146 [facility] Comment on above: Performed By: #### E LEC, , 2776-04 ####[facility] ([id number])[address], [address], [place] [address] Anion gap [Moles/Vol] 11 mmol/L Normal 5-15 [facility] Comment on above: Performed By: #### E LEC, , 2776-04 ####[facility] ([id number])[address], [address], [place] [address] Performed By: #### E LEC, , ####[facility] ([id number])[address], [address], [place] [address] Chloride [Moles/Vol] 102 mmol/L Normal 98-109 [facility] Comment on above: Performed By: #### E LEC, , 2776-04 ####[facility] ([id number])[address], [address], [place] [address] Performed By: #### E LEC, , ####[facility] ([id number])[address], [address], [place] [address] CO2 [Moles/Vol] 23 mmol/L Normal 22-32 [facility] Comment on above: Performed By: #### E LEC, , ####[facility] ([id number])[address], [address], [place] [address] Sodium [Moles/Vol] 136 mmol/L Normal 134-146 [facility] Comment on above: Performed By: #### E LEC, , ####[facility] ([id number])[address], [address] [place] [address] HGBon 06-15-2024 Hematocrit (Bld) [Volume fraction] 22.7 % Low 35-47 [facility] Comment on above: Performed By: #### H H ####[facility] ([id number])[address], [address] [place] [address] Hemoglobin (Bld) [Mass/Vol] 7.7 g/dL Low 11.7-15.5 [facility] Comment on above: Performed By: #### H H ####[facility] ([id number])[address], [address] [place] [address] LIVER PANELon 06-15-2024 Bilirubin.direct [Mass/Vol] 0.9 mg/dL High 0.0-0.4 [facility] Comment on above: Performed By: #### C MP, LIVR, , 2776-04, CBCA ####[facility] ([id number])[address] [address] [place] [address] MAGNESIUMon 06-15-2024 Magnesium [Mass/Vol] 1.9 mg/dL Normal 1.8-2.6 [facility] Comment on above: Performed By: #### E LEC, , 2776-04 ####[facility] ([id number])[address], [address], [place] [address] Performed By: #### Bertha HERNANDEZ, LIVR, , 2776-04, CBCA ####[facility] ([id number])[address], [address], [place] [address] Magnesium [Mass/Vol] 2.0 mg/dL Normal 1.8-2.6 [facility] Comment on above: Performed By: #### Cyndie LEC, , ####[facility] ([id number])[address], [address], [place] [address] PHOSPHORUSon 06-15-2024 Phosphate [Mass/Vol] 2.2 mg/dL Low 2.4-4.9 [facility] Comment on above: Performed By: #### Cyndie LEC, , 2776-04 ####[facility] ([id number])[address], [address], [place] [address] Phosphate [Mass/Vol] 3.8 mg/dL Normal 2.4-4.9 [facility] Comment on above: Performed By: #### Bertha HERNANDEZ, LIVR, , 2776-04, CBCA ####[facility] ([id number])[address], [address], [place] [address] POTASSIUMon 06-15-2024 Potassium [Moles/Vol] 3.8 mmol/L Normal 3.5-5.0 [facility] Comment on above: Performed By: #### 2 823-3 ####[facility] ([id number])[address], [address], [place] [address] Performed By: #### Bertha HERNANDEZ, LIVR, , 2776-04, CBCA ####[facility] ([id number])[address], [address], [place] [address] Performed By: #### Cyndie LEC, , ####[facility] ([id number])[address], [address] [place] [address] PROTIME AND INRon 06-15-2024 PT Coag (PPP) [Time] 15.2 s High 9.8-13.2 [facility] Comment on above: Performed By: #### P INR, 08701-8 ####[facility] ([id number])[address], [address] [place] [address] INR Coag (PPP) [Relative time] 1.3 {INR} High 0.9-1.2 [facility] Comment on above: Performed By: #### P INR, 43353-5 ####[facility] ([id number])[address], [address] [place] [address], [place] [address] PT Coag (PPP) [Time] 15.3 s High 9.8-13.2 [facility] Comment on above: Performed By: #### P INR, 09773-6 ####[facility] ([id number])[address], [address] [place] [address] Vancomycin [Mass/Vol]on VANCOMYCIN 27.0 ug/mL Normal 5.0-40.0 [facility] Comment on above: Result Comment: Peak 30-40 ug/mLTrough 5-20 ug/ml Performed By: #### 2 0578-1 ####[facility] ([id number])[address], [address] [place] [address] VANCOMYCIN 21.4 ug/mL Normal 5.0-40.0 [facility] Comment on above: Result Comment: Peak 30-40 ug/mLTrough 5-20 ug/ml Performed By: #### E LEC, 99469-5, 55015-5 ####[facility] ([id number])[address], [address], [place] [address] XR CHEST 1 VWon 06-15-2024 XR CHEST 1 VW Normal [facility] aPTT Coag (PPP) [Time]on aPTT Coag (Bld) [Time] 38 s High 26-37 Pr [facility] Comment on above: Performed By: #### P INR, 64583-4 ####[facility] ([id number])[address], [address] [place] [address] ARTERIAL BLOOD GASon 025 ROBERT'S TEST Pass Normal [facility] Comment on above: Performed By: #### A BG ####[facility] ([id number])2141 [place] [address] BASE,DEFICIT 8.0 MMOL/L High 0.0-2.0 [facility] Comment on above: Performed By: #### A BG ####[facility] ([id number])[address] [place] [address] Body temperature 98.6 [degF] Normal 37.0 [facility] Comment on above: Performed By: #### A BG ####[facility] ([id number])2[address] [place] [address] HCO3 (Bld) [Moles/Vol] 18.8 mmol/L Low 22-26 [facility] Comment on above: Performed By: #### A BG ####[facility] ([id number])[address] [place] [address] INSP. O2 CONC. 40 % Normal [facility] Comment on above: Performed By: #### A BG ####[facility] ([id number])[address] [facility] [place] [address] Oxygen (Bld) [Partial pressure] 118 mm[Hg] High 80-100 [facility] Comment on above: Performed By: #### A BG ####[facility] ([id number])[address] [facility] [place] [address] Oxygen saturation in Blood 98.0 % Normal >90 [facility] Comment on above: Performed By: #### A BG ####[facility] ([id number])[address] [place] [address] OXYGEN SOURCE Vent [facility] Comment on above: Performed By: #### A BG ####[facility] ([id number])[address] [place] [address] PCO2 45.7 MMHG High 35-45 [facility] Comment on above: Performed By: #### A BG ####[facility] ([id number])[address] [place] [address] pH (Bld) 7.223 [pH] Low 7.350-7.45 0 [facility] Comment on above: Performed By: #### A BG ####[facility] ([id number])[address] [place] [address] SAMPLE SITE LRad Normal [facility] Comment on above: Performed By: #### A BG ####[facility] ([id number])[address] [place] [address] SAMPLE TYPE ARTERIAL Normal [facility] Comment on above: Performed By: #### A BG ####[facility] ([id number])[address] [facility] [place] [address] BASIC METABOLIC PANLon 06-14 Anion gap [Moles/Vol] 10 mmol/L Normal 5-15 [facility] Comment on above: Performed By: #### Greer HERNANDEZ, LIVR ####[facility] ([id number])[address], [address], [place] [address] Calcium [Mass/Vol] 8.0 mg/dL Low 8.5-10.5 [facility] Comment on above: Performed By: #### B MARY, LIVR ####[facility] ([id number])[address], [address], [place] [address] Chloride [Moles/Vol] 100 mmol/L Normal 98-109 [facility] Comment on above: Performed By: #### Greer HERNANDEZ, LIVR ####[facility] ([id number])[address] [address], [place] [address] Creatinine [Mass/Vol] 3.64 mg/dL High 0.40-1.00 [facility] Comment on above: Result Comment: METH OD TRACEABLE TO IDMS STANDARD Performed By: #### Greer HERNANDEZ, LIVR ####[facility] ([id number])[address] [address], [place] [address] GFR/1.73 sq M.predicted among non-blacks MDRD (S/P/Bld) [Vol rate/Area] 14 mL/min/{1.73_m2} Low >59 [facility] Comment on above: Result Comment: Repo rted eGFR is based on theCKD-EPI 2020 equation that doesnot use a race coefficient. Performed By: #### B MARY, LIVR ####[facility] ([id number])[address], [address], [place] [address] Glucose [Mass/Vol] 97 mg/dL Normal 65-99 [facility] Comment on above: Performed By: #### Greer HERNANDEZ, LIVR ####[facility] ([id number])[address], [address], [place] [address] Potassium [Moles/Vol] 4.8 mmol/L Normal 3.5-5.0 [facility] Comment on above: Performed By: #### B MARY LIVR ####[facility] ([id number])[address], [address] [place] [address] Sodium [Moles/Vol] 131 mmol/L Low 134-146 [facility] Comment on above: Performed By: #### B MARY, LIVR ####[facility] ([id number])[address], [address] [place] [address] Urea nitrogen [Mass/Vol] 42 mg/dL High 5-27 [facility] Comment on above: Performed By: #### B MARY LIVR ####[facility] ([id number])[address] [address] [place] [address] CBC AND AUTO DIFFon 06-15-19 25 ABSOLUTE BASOPHIL 0.1 X10E9/L Normal 0.0-0.2 [facility] Comment on above: Performed By: #### C BCA ####[facility] ([id number])[address] [address] [place] [address] ABSOLUTE NEUTROPHIL 4.3 X10E9/L Normal 1.5-6.6 [facility] Comment on above: Performed By: #### C BCA ####[facility] ([id number])[address] [address] [place] [address] Basophils/100 WBC (Bld) 0.9 % Normal P [facility] Comment on above: Performed By: #### C BCA ####[facility] ([id number])[address] [address] [place] [address] Eosinophils (Bld) [#/Vol] 0.0 10*3/uL Normal 0.0-0.4 [facility] Comment on above: Performed By: #### C BCA ####[facility] ([id number])[address] [address] [place] [address] Eosinophils/100 WBC (Bld) 0.1 % Normal [facility] Comment on above: Performed By: #### C BCA ####[facility] ([id number])[address] [address] [address] Erythrocyte distribution width (RBC) [Ratio] 16.9 % High 11.5-15.0 [facility] Comment on above: Performed By: #### C BCA ####[facility] ([id number])[address] [address] Hematocrit (Bld) [Volume fraction] 23.1 % Low 35-47 [facility] Comment on above: Performed By: #### C BCA ####[facility] ([id number])[address] [address] Hemoglobin (Bld) [Mass/Vol] 7.5 g/dL Low 11.7-15.5 [facility] Comment on above: Performed By: #### C BCA ####[facility] ([id number])[address] [address] Lymphocytes (Bld) [#/Vol] 0.6 10*3/uL Low 1.0-3.5 [facility] Comment on above: Performed By: #### C BCA ####[facility] ([id number])[address] [address] Lymphocytes/100 WBC (Bld) 11.5 % Normal [facility] Comment on above: Performed By: #### C BCA ####[facility] ([id number])[address] [address] MCH (RBC) [Entitic mass] 32.8 pg Normal 27-34 [facility] Comment on above: Performed By: #### C BCA ####[facility] ([id number])[address], [place] [address] MCHC (RBC) [Mass/Vol] 32.4 g/dL Normal 32-36 [facility] Comment on above: Performed By: #### C BCA ####[facility] ([id number])[address], [place] [address] MCV (RBC) [Entitic vol] 101 fL High 80-100 [facility] Comment on above: Performed By: #### C BCA ####[facility] ([id number])[address], [place] [address] Monocytes (Bld) [#/Vol] 0.4 10*3/uL Normal 0-0.9 [facility] Comment on above: Performed By: #### C BCA ####[facility] ([id number])[address], [place] [address] Monocytes/100 WBC (Bld) 6.8 % Normal [facility] Comment on above: Performed By: #### C BCA ####[facility] ([id number])[address], [place] [address] Neutrophils/100 WBC (Bld) 80.7 % Normal [facility] Comment on above: Performed By: #### C BCA ####[facility] ([id number])[address], [place] [address] Platelet mean volume (Bld) [Entitic vol] 7.2 fL Normal 7-12 [facility] Comment on above: Performed By: #### C BCA ####[facility] ([id number])[address], [place] [address] Platelets (Bld) [#/Vol] 148 10*3/uL Low 150-450 [facility] Comment on above: Performed By: #### C BCA ####[facility] ([id number])[address] [place] [address] RBC COUNT 2.28 X10E12/L Low 3.80-5.20 [facility] Comment on above: Performed By: #### C BCA ####[facility] ([id number])[address] [place] [address] WBC (Bld) [#/Vol] 5.3 10*3/uL Normal 4.0-11.0 [facility] Comment on above: Performed By: #### C BCA ####[facility] ([id number])[address] [address] ABSOLUTE BASOPHIL 0.0 X10E9/L Normal 0.0-0.2 [facility] Comment on above: Performed By: #### C BCA, CMP, 09658-6, 2777-1, TSHR, 3024-7, 5196-1, 5193-8, 4679-7, 26509-6 ####[facility] ([id number])[address] [place] [address] ABSOLUTE NEUTROPHIL 3.8 X10E9/L Normal 1.5-6.6 [facility] Comment on above: Performed By: #### C BCA, CMP, 32936-8, 2777-1, TSHR, 3024-7, 5196-1, 5193-8, 4679-7, 73585-1 ####[facility] ([id number])[address], [address] [address] Basophils/100 WBC (Bld) 0.7 % Normal [facility] Comment on above: Performed By: #### C BCA, CMP, 76768-8, 2777-1, TSHR, 3024-7, 5196-1, 5193-8, 4679-7, 44156-6 ####[facility] ([id number])[address], [address] [place] [address] 55536 Eosinophils (Bld) [#/Vol] 0.0 10*3/uL Normal 0.0-0.4 [facility] Comment on above: Performed By: #### C BCA, CMP, 33347-0, 2777-1, TSHR, 3024-7, 5196-1, 5193-8, 4679-7, 45281-9 ####[facility] ([id number])[address], [address] [place] [address] 50351 Eosinophils/100 WBC (Bld) 0.3 % Normal [facility] Comment on above: Performed By: #### C BCA, CMP, 76432-3, 7-1, TSHR, 3024-7, 5196-1, 5193-8, 4679-7, 66366-7 ####[facility] ([id number])[address] [address] [place] [address] 75100 Erythrocyte distribution width (RBC) [Ratio] 16.8 % High 11.5-15.0 [facility] Comment on above: Performed By: #### C BCA, CMP, 92838-5, 7-1, TSHR, 3024-7, 5196-1, 5193-8, 4679-7, 56704-1 ####[facility] ([id number])[address] [address] [place] [address] 27750 Hematocrit (Bld) [Volume fraction] 23.6 % Low 35-47 [facility] Comment on above: Performed By: #### C BCA, CMP, 25805-0, 2777-1, TSHR, 3024-7, 5196-1, 5193-8, 4679-7, 89728-0 ####[facility] ([id number])[address] [address] [place] [address] 62785 Hemoglobin (Bld) [Mass/Vol] 7.6 g/dL Low 11.7-15.5 [facility] Comment on above: Performed By: #### C BCA, CMP, 69204-1, 2777-1, TSHR, 3024-7, 5196-1, 5193-8, 4679-7, 01111-7 ####[facility] ([id number])[address], [address] [address] Lymphocytes (Bld) [#/Vol] 0.5 10*3/uL Low 1.0-3.5 [facility] Comment on above: Performed By: #### C BCA, CMP, 32108-5, 2777-1, TSHR, 3024-7, 5196-1, 5193-8, 4679-7, 34684-0 ####[facility] ([id number])[address], [address] [place] [address] 90784 Lymphocytes/100 WBC (Bld) 9.8 % Normal [facility] Comment on above: Performed By: #### C BCA, CMP, 54642-1, 2777-1, TSHR, 3024-7, 5196-1, 5193-8, 4679-7, 22108-4 ####[facility] ([id number])[address], [address] [place] [address] 70458 MCH (RBC) [Entitic mass] 32.7 pg Normal 27-34 [facility] Comment on above: Performed By: #### C BCA, CMP, 91996-5, 2777-1, TSHR, 3024-7, 5196-1, 5193-8, 4679-7, 07664-7 ####[facility] ([id number])[address], [address] [address] MCHC (RBC) [Mass/Vol] 32.0 g/dL Normal 32-36 [facility] Comment on above: Performed By: #### C BCA, CMP, 60657-6, 2777-1, TSHR, 3024-7, 5196-1, 5193-8, 4679-7, 88234-8 ####[facility] ([id number])[address], [address] [place] [address] MCV (RBC) [Entitic vol] 102 fL High 80-100 [facility] Comment on above: Performed By: #### C BCA, CMP, 00994-1, 2777-1, TSHR, 3024-7, 5196-1, 5193-8, 4679-7, 06103-5 ####[facility] ([id number])[address], [address] [address] Monocytes (Bld) [#/Vol] 0.4 10*3/uL Normal 0-0.9 [facility] Comment on above: Performed By: #### C BCA, CMP, 44293-0, 2777-1, TSHR, 3024-7, 5196-1, 5193-8, 4679-7, 87498-7 ####[facility] ([id number])[address], [address] [address] Monocytes/100 WBC (Bld) 9.1 % Normal [facility] Comment on above: Performed By: #### C BCA, CMP, 80105-0, 2777-1, TSHR, 3024-7, 5196-1, 5193-8, 4679-7, 65253-5 ####[facility] ([id number])[address], [address] [place] [address] Neutrophils/100 WBC (Bld) 80.1 % Normal [facility] Comment on above: Performed By: #### C BCA, CMP, 55663-5, 2777-1, TSHR, 3024-7, 5196-1, 5193-8, 4679-7, 27305-3 ####[facility] ([id number])[address], [address] [place] [address] Platelet mean volume (Bld) [Entitic vol] 7.3 fL Normal 7-12 [facility] Comment on above: Performed By: #### C BCA, CMP, 32427-2, 2777-1, TSHR, 3024-7, 5196-1, 5193-8, 4679-7, 04581-5 ####[facility] ([id number])[address], [address] [address] Platelets (Bld) [#/Vol] 138 10*3/uL Low 150-450 [facility] Comment on above: Performed By: #### C BCA, CMP, 17967-0, 2777-1, TSHR, 3024-7, 5196-1, 5193-8, 4679-7, 88155-2 ####[facility] ([id number])[address], [address], [place] [address] RBC COUNT 2.31 X10E12/L Low 3.80-5.20 [facility] Comment on above: Performed By: #### C BCA, CMP, 14357-4, 2777-1, TSHR, 3024-7, 5196-1, 5193-8, 4679-7, 47314-6 ####[facility] ([id number])[address], [address] [place] [address] 68640 WBC (Bld) [#/Vol] 4.8 10*3/uL Normal 4.0-11.0 [facility] Comment on above: Performed By: #### C BCA, CMP, 41147-5, 2777-1, TSHR, 3024-7, 5196-1, 5193-8, 4679-7, 25243-5 ####[facility] ([id number])[address], [address] [place] [address] 64806 COMPLEMENT PROFILEon 025 COMPLEMENT C3 69 mg/dL Low 86-184 [facility] Comment on above: Performed By: #### [address], [place], [place], 73894-9, 97799-2 ####[facility] ([id number])[address], [address] [place] [address] 88055 COMPLEMENT C4 13 mg/dL Low 16-47 [facility] Comment on above: Performed By: #### [address], [place], [place], 38012-0, 26776-6 ####[facility] ([id number])[address], [address] [place] [address] 6[address]14 COMPREHENSIVE METABOLIC PANE Kael 06-14-2024 Albumin [Mass/Vol] 3.1 g/dL Low 3.2-5.3 [facility] Comment on above: Performed By: #### C BCA, CMP, 27513-4, 2777-1, TSHR, 3024-7, 5196-1, 5193-8, 4679-7, 98954-1 ####[facility] ([id number])[address], [address] [place] [address] 35027 ALP [Catalytic activity/Vol] 119 U/L Normal 39-130 [facility] Comment on above: Performed By: #### C BCA, CMP, 06869-0, 2777-1, TSHR, 3024-7, 5196-1, 5193-8, 4679-7, 75082-9 ####[facility] ([id number])[address], [address] [place] [address] 00201 ALT [Catalytic activity/Vol] 6 U/L Normal 0-31 [facility] Comment on above: Performed By: #### C BCA, CMP, 42388-1, 2777-1, TSHR, 3024-7, 5196-1, 5193-8, 4679-7, 18921-3 ####[facility] ([id number])[address], [address] [place] [address], [place] [address] Anion gap [Moles/Vol] 10 mmol/L Normal 5-15 [facility] Comment on above: Performed By: #### C BCA, CMP, 12860-9, 2777-1, TSHR, 3024-7, 5196-1, 5193-8, 4679-7, 19454-9 ####[facility] ([id number])[address], [address], [place] [address] AST [Catalytic activity/Vol] 12 U/L Normal 0-41 [facility] Comment on above: Performed By: #### C BCA, CMP, 20614-5, 2777-1, TSHR, 3024-7, 5196-1, 5193-8, 4679-7, 63216-0 ####[facility] ([id number])[address], [address], [place] [address] Bilirubin [Mass/Vol] 0.8 mg/dL Normal 0.3-1.2 [facility] Comment on above: Performed By: #### C BCA, CMP, 05353-1, 2777-1, TSHR, 3024-7, 5196-1, 5193-8, 4679-7, 33846-5 ####[facility] ([id number])[address], [address], [place] [address] Calcium [Mass/Vol] 7.9 mg/dL Low 8.5-10.5 [facility] Comment on above: Performed By: #### C BCA, CMP, 29019-4, 2777-1, TSHR, 3024-7, 5196-1, 5193-8, 4679-7, 30006-9 ####[facility] ([id number])[address], [address], [place] [address] Chloride [Moles/Vol] 98 mmol/L Normal 98-109 [facility] Comment on above: Performed By: #### C BCA, CMP, 79460-3, 2777-1, TSHR, 3024-7, 5196-1, 5193-8, 4679-7, 57369-5 ####[facility] ([id number])[address], [address], [place] [address] CO2 [Moles/Vol] 20 mmol/L Low 22-32 [facility] Comment on above: Performed By: #### C BCA, CMP, 20724-7, 2777-1, TSHR, 3024-7, 5196-1, 5193-8, 4679-7, 47528-9 ####[facility] ([id number])[address], [address] [place] [address] 66739 Creatinine [Mass/Vol] 3.45 mg/dL High 0.40-1.00 [facility] Comment on above: Result Comment: METH OD TRACEABLE TO IDMS STANDARD Performed By: #### C BCA, CMP, 15533-9, 2776-1, TSHR, 3024-7, 5196-1, 5193-8, 4679-7, 81467-6 ####[facility] ([id number])[address], [address] [place] [address] 07707 GFR/1.73 sq M.predicted among non-blacks MDRD (S/P/Bld) [Vol rate/Area] 15 mL/min/{1.73_m2} Low >59 [facility] Comment on above: Result Comment: Repo rted eGFR is based on theCKD-EPI 2020 equation that doesnot use a race coefficient. Performed By: #### C BCA, CMP, 67164-7, 2776-1, TSHR, 3024-7, 5196-1, 5193-8, 4679-7, 28626-7 ####[facility] ([id number])[address], [address] [place] [address] 98157 Glucose [Mass/Vol] 91 mg/dL Normal 65-99 [facility] Comment on above: Performed By: #### C BCA, CMP, 36384-2, 7-1, TSHR, 3024-7, 5196-1, 5193-8, 4679-7, 08926-2 ####[facility] ([id number])[address], [address], [place] [address] Potassium [Moles/Vol] 4.7 mmol/L Normal 3.5-5.0 [facility] Comment on above: Performed By: #### C BCA, CMP, 61617-2, 2777-1, TSHR, 3024-7, 5196-1, 5193-8, 4679-7, 12872-8 ####[facility] ([id number])[address], [address] [place] [address] 86601 Protein [Mass/Vol] 5.9 g/dL Low 6.0-8.0 [facility] Comment on above: Performed By: #### C BCA, CMP, 05021-4, 2777-1, TSHR, 3024-7, 5196-1, 5193-8, 4679-7, 43693-8 ####[facility] ([id number])[address], [address] [place] [address] 98595 Sodium [Moles/Vol] 128 mmol/L Low 134-146 [facility] Comment on above: Performed By: #### C BCA, CMP, 98801-4, 2777-1, TSHR, 3024-7, 5196-1, 5193-8, 4679-7, 85370-5 ####[facility] ([id number])[address] [address] [place] [address] 12787 Urea nitrogen [Mass/Vol] 43 mg/dL High 5-27 [facility] Comment on above: Performed By: #### C BCA, CMP, 55964-3, 2777-1, TSHR, 3024-7, 5196-1, 5193-8, 4679-7, 63400-0 ####[facility] ([id number])[address], [address] [place] [address] ABDOMEN AND PELVIS WO CON Ton 06-14-2024 CT ABDOMEN AND PELVIS WO CONT Normal [facility] CT CHEST WO CONTon CT CHEST WO CONT Normal [facility] CT NECK SOFT TISSUE WO CONTo n 06-14-2024 CT NECK SOFT TISSUE WO CONT Normal [facility] Clinical Pathologyon 025 Clinical Pathology Normal [facility] Comment on above: Result Comment: [facility] [address] [place] [address] Clinical Pathology ReportPatient Name:ORESTES ALVARES:1965 (Age: 59)Gender:FTaken:06/14/2024Reported:06/17/2024Physician(s):Janice Trotter M.D. ([phone])Copy To: Rec. #:[id number]: #[id number] Pathologic DiagnosisMonoclonal protein in gamma region, 0.2 g/dL, IgG kappa.Mild hypoalbuminemia. Report Electronically Signed Outdf/06/17/2024Eben Pappas MDInterpretation performed at [facility], [address] [place] [address], License number: [id number].Clinical DadlxbeK36.91, J96.01, J96.00.SERUM PROTEIN ELECTROPHORESISSAMPLE NO: [id number] FRACTION CONCENTRATIONS (g/dL) PATIENT REFERENCE RANGEAlbumin 3.2 L 3.4 - 5.3Alpha-1 globulin 0.4 0.1 - 0.4Alpha-2 globulin 0.5 0.4 - 1.1Beta globulin 0.9 0.5 - 1.2Gamma globulin 1.0 0.5 - 1.61 0.2Total protein 6.0 6.0 - 8.0(Electrophoretic gels and densitometric tracings on file in lab.)SERUM IEPIMMUNOGLOBULIN LEVELS (mg/dL): IgG : 1039 IgA : 568 IgM : 162 Free [place]: 22.41 Free Lambda: 13.82 Free [place]/Lambda ratio: 1.62Specimen(s) Received1: Serum Protein Electrophoresis2: Serum IEPFee Codes(s):1; 99357-451; 70125-20 Result Comment: [facility] [address] [place] [address] Clinical Pathology ReportPatient Name:ORESTES ALVARES:1965 (Age: 59)Gender:FTaken:06/14/2024Reported:06/17/2024Physician(s):Janice Trotter M.D. ([phone])Copy To: Rec. #:[id number]: #[id number] Pathologic DiagnosisSerum like pattern suggestive of non-selective proteinuria.No monoclonal protein identified. Report Electronically Signed Outdf/06/17/2024Eben Pappas MDInter[place] [address], License number: [id number].Clinical GldyvttQ47.91, J96.01, J96.00.URINE PROTEIN ELECTROPHORESISSAMPLE NUMBER: [id number] ELECTROPHORETIC CONCENTRATIONS (%) ? 100.0 Urine Protein 820 mg/L(Electrophoretic gels and densitometric tracings on file in lab.)Specimen(s) Received Urine Protein ElectrophoresisFee Codes(s):1; 05757-54 Clinical Pathology Blood Sme ar Reviewon 06-14-2024 Clinical Pathology Blood Smear Review Normal [facility] Comment on above: Result Comment: [facility] [address] [place] [address] Clinical Pathology ReportPatient Name:ORESTES ALVARES:1965 (Age: 59)Gender:FTaken:06/14/2024Reported:06/19/2024Physician(s):VAMSI Arreagaopy To: Rec. #:[id number]: #[id number] Pathologic DiagnosisPeripheral smear review:- Marked macrocytic anemia [...] Clinical correlation is appreciated. Report Electronically Signed Outduvall/06/19/2024Shrufina Hammond MDInterpretation performed at [facility], [address] [place] [address], License number: [id number].Clinical History___BLOOD SMEAR EVALUATIONCBC (06/14/2024 0245): WBC: 4.8 [...] no clumpsSpecimen(s) Received Blood Smear ReviewFee Codes(s):1; 29612 ELECTROLYTESon 06-14-2024 Anion gap [Moles/Vol] 13 mmol/L Normal 5-15 [facility] Comment on above: Performed By: #### E [facility], 26586-9, 2777-1 ####[facility] ([id number])[address] [place] [address], [place] [address] Potassium [Moles/Vol] 4.0 mmol/L Normal 3.5-5.0 [facility] Comment on above: Performed By: #### E LEC, 16190-0, 2777-1 ####[facility] ([id number])[address], [place] [address] Sodium [Moles/Vol] 135 mmol/L Normal 134-146 [facility] Comment on above: Performed By: #### E LEC, , 2776-04 ####[facility] ([id number])[address], [address], [place] [address] Anion gap [Moles/Vol] 12 mmol/L Normal 5-15 [facility] Comment on above: Performed By: #### P INR, HH, ELEC, , 2776-04 ####[facility] ([id number])[address], [address], [place] [address] Chloride [Moles/Vol] 101 mmol/L Normal 98-109 [facility] Comment on above: Performed By: #### E LEC, , 2776-04 ####[facility] ([id number])[address], [address], [place] [address] Performed By: #### P INR, HH, ELEC, , 2776-04 ####[facility] ([id number])[address], [address], [place] [address] CO2 [Moles/Vol] 20 mmol/L Low 22-32 [facility] Comment on above: Performed By: #### P INR, HH, ELEC, , 2776-04 ####[facility] ([id number])[address], [address], [place] [address] Potassium [Moles/Vol] 4.3 mmol/L Normal 3.5-5.0 [facility] Comment on above: Performed By: #### P INR, HH, ELEC, , 2776-04 ####[facility] ([id number])[address], [address], [place] [address] Sodium [Moles/Vol] 133 mmol/L Low 134-146 [facility] Comment on above: Performed By: #### P INR, HH, ELEC, , 1 ####[facility] ([id number])[address], [address] [place] [address] 04299 CO2 [Moles/Vol] 21 mmol/L Low 22-32 [facility] Comment on above: Performed By: #### E LEC, , 2776-04 ####[facility] ([id number])[address], [address] [place] [address]17 Performed By: #### B MP, LIVR ####[facility] ([id number])[address], [address] [place] [address] 53447 FERRITINon 06-14-2024 Ferritin [Mass/Vol] 42 ng/mL Normal 11-307 [facility] Comment on above: Performed By: #### F EPR, 2276-4, 66703-5, TSHR, 2284-8, 2132-9, 3024-7, 2532-0 ####[facility] ([id number])[address] [address] [place] [address] 34975 FREE LIGHT CHAINSon 06-15-19 25 FREE POONAM/LAMBD RATIO 1.62 Normal 0.26-1.65 [facility] Comment on above: Performed By: #### [address], [place], [place], 52877-7, 60594-5 ####[facility] ([id number])[address], [address] [place] [address] 14622 FREE KAPPA LT CHAINS 22.41 mg/dL High 0.33-1.94 [facility] Comment on above: Performed By: #### [address], [place], [place], 95981-9, 45287-1 ####[facility] ([id number])[address], [address] [place] [address] 89403 FREE LAMBDA LT CHAINS 13.82 mg/dL High 0.57-2.63 [facility] Comment on above: Performed By: #### [address], [place], [place], 57026-9, 61299-6 ####[facility] ([id number])[address] [facility] [address] [place] [address] 09601 FREE T4on 06-14-2024 Free T4 [Mass/Vol] 0.58 ng/dL Low 0.61-1.60 [facility] Comment on above: Performed By: #### F EPR, 2276-4, 71232-6, TSHR, 2284-8, 2132-9, 3024-7, 2532-0 ####[facility] ([id number])[address] [facility], [address] [place] [address] 28743 Free T4 [Mass/Vol] 0.50 ng/dL Low 0.61-1.60 [facility] Comment on above: Performed By: #### C BCA, CMP, 15952-2, 2777-1, TSHR, 3024-7, 5196-1, 5193-8, 4679-7, 95591-3 ####[facility] ([id number])[address] [facility], [address] [address] Folate [Mass/Vol]on 06-15-19 25 FOLIC ACID 11.1 ng/mL Normal >5.8 [facility] Comment on above: Result Comment: NEW REFERENCE RANGE Performed By: #### F EPR, 2276-4, 74316-7, TSHR, 2284-8, 2132-9, 3024-7, 2532-0 ####[facility] ([id number])[address] [facility], [address] [place] [address] 03540 Glomerular basement membrane IgG Qn (S)on 06-14-2024 GBM IgG Ab <0.2 Normal <1.0 [facility] Comment on above: Performed By: #### [address], [place], [place], 75547-8, 88563-5 ####[facility] ([id number])[address], [address] [address] HBV core Ab IA Qlon 06-15-19 25 ANTI HBc Reactive Abnormal NRCT [facility] Comment on above: Result Comment: NEW TEST METHOD Performed By: #### C BCA, CMP, , 2776-, TSHR, 3024-7, 5196-1, 5193-8, 4679-7, 49323-9 ####[facility] ([id number])[address], [address] [place] [address] 96219 HBV surface Ab IA Qnon 06-14 Anti HBs quant. <3.00 Normal [facility] Comment on above: Result Comment: NOTE Vaccinated: >=10.00 mIU/mL, Positive (Immune)Unvaccinated: <10.00 mIU/mL, Negative (Not Immune)Interpretive values have changed due to implementation of anew method. Values run higher than previous method. Performed By: #### C BCA, CMP, , 2776-04, TSHR, 3024-7, 5196-1, 5193-8, 4679-7, 21945-6 ####[facility] ([id number])[address], [address] [place] [address] 62352 HBV surface Ag IA Qlon 06-14 HEPATITIS B SURF AG Non-Reactive Normal NRCT [facility] Comment on above: Result Comment: NEW TEST METHOD Performed By: #### C BCA, CMP, , 2776-04, TSHR, 3024-7, 5196-1, 5193-8, 4679-7, 70073-2 ####[facility] ([id number])[address], [address] [place] [address] 71221 HGBon 06-14-2024 Hematocrit (Bld) [Volume fraction] 21.1 % Low 35-47 [facility] Comment on above: Performed By: #### P INR, HH, ELEC, , 2776-04 ####[facility] ([id number])[address], [address] [place] [address] 01634 Hemoglobin (Bld) [Mass/Vol] 6.9 g/dL Critically low 11.7-15.5 [facility] Comment on above: Performed By: #### P INR, HH, ELEC, 99037-6, 2777-1 ####[facility] ([id number])[address], [address] [place] [address] 81638 Haptoglobin Nephelometry [Ma ss/Vol]on 06-14-2024 HAPTOGLOBIN 84 mg/dL Normal 32-228 [facility] Comment on above: Performed By: #### F EPR, 2276-4, 74130-6, TSHR, 2284-8, 2132-9, 3024-7, 2532-0 ####[facility] ([id number])[address], [address] [place] [address] 70949 IRON PROFILEon 06-14-2024 Iron [Mass/Vol] 118 ug/dL Normal 50-170 [facility] Comment on above: Performed By: #### F EPR, 2276-4, 08908-2, TSHR, 2284-8, 2132-9, 3024-7, 2532-0 ####[facility] ([id number])[address], [address] [place] [address] 64548 IRON BINDING 272 ug/dL Normal 250-425 [facility] Comment on above: Performed By: #### F EPR, 2276-4, 48559-4, TSHR, 2284-8, 2132-9, 3024-7, 2532-0 ####[facility] ([id number])[address], [address] [place] [address], [place] [address] IRON SATURATION 43 % SATURATION Normal 15-50 [facility] Comment on above: Performed By: #### F EPR, 2276-4, 85230-4, TSHR, 2284-8, 2132-9, 3024-7, 2532-0 ####[facility] ([id number])[address] [address] [place] [address] 33999 LDH [Catalytic activity/Vol] on 06-14-2024 LDH 127 U/L Normal 100-235 [facility] Comment on above: Performed By: #### F EPR, 2276-4, 01834-4, TSHR, 2284-8, 2132-9, 3024-7, 2532-0 ####[facility] ([id number])[address] [address] [place] [address] 92998 LIVER PANELon 06-14-2024 Albumin [Mass/Vol] 3.2 g/dL Low 3.4-5.3 [facility] Comment on above: Performed By: #### B MARY, LIVR ####[facility] ([id number])[address] [address] [place] [address] Performed By: #### [address], [place], [place], 96794-2, 38425-2 ####[facility] ([id number])[address] [address] [place] [address] 13677 ALP [Catalytic activity/Vol] 110 U/L Normal 39-130 [facility] Comment on above: Performed By: #### B MP, LIVR ####[facility] ([id number])[address] [address] [place] [address] 71801 ALT [Catalytic activity/Vol] 4 U/L Normal 0-31 [facility] Comment on above: Performed By: #### B MP, LIVR ####[facility] ([id number])[address] [address] [place] [address] 84448 AST [Catalytic activity/Vol] 12 U/L Normal 0-41 [facility] Comment on above: Performed By: #### B MP, LIVR ####[facility] ([id number])[address] [place] [address] Bilirubin [Mass/Vol] 0.8 mg/dL Normal 0.3-1.2 [facility] Comment on above: Performed By: #### B MARY, LIVR ####[facility] ([id number])[address], [address] [address] Bilirubin.direct [Mass/Vol] 0.4 mg/dL Normal 0.0-0.4 [facility] Comment on above: Performed By: #### B MARY, LIVR ####[facility] ([id number])[address], [address] [place] [address] 59033 Protein [Mass/Vol] 5.7 g/dL Low 6.0-8.0 [facility] Comment on above: Performed By: #### B MARY, LIVR ####[facility] ([id number])[address], [address] [place] [address] 56283 LOWER RESPIRATORY CULTUREon 06-14-2024 Bacteria identified Respiratory culture Nom (Sput) GRAM STAIN 0 WHITE BLOOD CELLS/LPF 0 SQUAMOUS EPITHELIAL CELLS/LPF 0 CILIATED EPITHELIAL CELLS/LPF NO ORGANISMS SEEN CULTURE RESULTS NORMAL ORAL JEET Normal [facility] Comment on above: Performed By: #### 6 24-7 ####[facility] ([id number])[address], [address] [place] [address]150 MAGNESIUMon 06-14-2024 Magnesium [Mass/Vol] 2.1 mg/dL Normal 1.8-2.6 [facility] Comment on above: Performed By: #### E LEC, , 2776-04 ####[facility] ([id number])[address], [address] [place] [address] 36070 Magnesium [Mass/Vol] 1.7 mg/dL Low 1.8-2.6 [facility] Comment on above: Performed By: #### P INR, HH, ELEC, , 2776-04 ####[facility] ([id number])[address] [address], [address] [place] [address] Magnesium [Mass/Vol] 3.5 mg/dL High 1.8-2.6 [facility] Comment on above: Performed By: #### C BCA, CMP, 48356-0, 2777-1, TSHR, 3024-7, 5196-1, 5193-8, 4679-7, 77925-4 ####[facility] ([id number])[address], [address] [place] [address] Magnesium Ionized ISE (Bld) [Moles/Vol]on 06-14-2024 Magnesium [Moles/Vol] 0.54 mmol/L Normal 0.45-0.74 Pr [facility] Comment on above: Result Comment: NEW REFERENCE RANGE Performed By: #### 7 3572-0 ####[facility] ([id number])[address], [address] [address] Neutrophil cytoplasmic Ab pa victor hugo IF (S)on 06-14-2024 c-ANCA Negative Normal Negative [facility] Comment on above: Performed By: #### [address], SIFE, SPE, 22497-0, 62044-4 ####[facility] ([id number])[address] [address] p-ANCA Negative Normal Negative [facility] Comment on above: Result Comment: NOTE Negative for cANCA and pANCA patterns by immunofluorescence. ADDITIONAL INFORMATION This test was developed and its performance characteristicsdetermined by [facility] in a manner consistent with CLIArequirements. This test has not been cleared or approved bythe U.S. Food and Drug Administration.Test Performed by:[facility] [place] [id number] Director: Alan Boothe Ph.D.; CLIA# [id number] Performed By: #### C 34, [place], [place], 08330-8, 27457-6 ####[facility] ([id number])[address] [address] [address] Nuclear Ab IA Ql (S)on 06-14 MATY Screen w/reflex Negative Normal NEG [facility] Comment on above: Result Comment: Test ing performed using multiplex flowimmunoassay. Eleven different antigensassociated with systemic autoimmunediseases (dsDNA,Sm,Sm/SATELLITE TECHNICIAN,SATELLITE TECHNICIAN,Chromatin,SSA,SSB,Keesha-1,Scl70,Ribo P,Centromere B)are included in this screening test. Performed By: #### [address], [place], [place], 03546-3, 06603-2 ####[facility] ([id number])[address] [address] [address] PHOSPHORUSon 06-14-2024 Phosphate [Mass/Vol] 5.1 mg/dL High 2.4-4.9 [facility] Comment on above: Performed By: #### E LEC, , 2776-04 ####[facility] ([id number])[address] [address] Phosphate [Mass/Vol] 6.2 mg/dL High 2.4-4.9 [facility] Comment on above: Performed By: #### P INR, HH, ELEC, , 2776-04 ####[facility] ([id number])[address] [address] [address] Phosphate [Mass/Vol] 7.0 mg/dL High 2.4-4.9 [facility] Comment on above: Performed By: #### C BCA, CMP, , 2776-04, TSHR, 3024-7, 5196-1, 5193-8, 4679-7, 21137-0 ####[facility] ([id number])[address] [address] [place] [address] 17464 PROTEIN CREAT RATIOon 2024 RANDOM URINE PROTEIN 860 mg/L High <120 [facility] Comment on above: Performed By: #### U Christiano, UPCR ####[facility] ([id number])[address], [address] [place] [address] U/PRO/SENIOR SYSTEM OPERATOR RATIO CALC 2.20 High <0.2 [facility] Comment on above: Result Comment: Neph rotic Syndrome is associated with ratios >3.5 Performed By: #### U Christiano, UPCR ####[facility] ([id number])[address], [address] [place] [address] URINE CREATININE,RDM 39.08 mg/dL Normal [facility] Comment on above: Performed By: #### Piotr Alvarado, UPCR ####[facility] ([id number])[address], [address] [place] [address] PROTIME AND INRon 06-14-2024 PT Coag (PPP) [Time] 17.0 s High 9.8-13.2 [facility] Comment on above: Performed By: #### P INR, 63901-2 ####[facility] ([id number])[address] [address] [place] [address] INR Coag (PPP) [Relative time] 1.5 {INR} High 0.9-1.2 [facility] Comment on above: Performed By: #### P INR, 76572-1 ####[facility] ([id number])[address], [address] [place] [address] Performed By: #### P INR, HH, ELEC, 41874-7, 2777-1 ####[facility] ([id number])[address], [address] [place] [address]14 PT Coag (PPP) [Time] 16.7 s High 9.8-13.2 [facility] Comment on above: Performed By: #### P INR, HH, ELEC, 30678-1, 2777-1 ####[facility] ([id number])[address] [place] [address], [address] [place] [address] comment (Bld) [Interp]on 06-14-2024 STAFF REVIEW NOTE Normal [facility] Comment on above: Result Comment: [facility] [address] [place] [address] Clinical Pathology ReportPatient Name:ORESTES ALVARES:1965 (Age:59)Gender:FTaken:06/14/2024Reported:06/19/2024Physician(s): Vernell Tracey To: Rec. #:[id number] Pathologic DiagnosisPeripheral smear review:- Marked macrocytic anemia [...] Electronically Signed Outduvall/06/19/2024Jamar Hammond MDInter[place] [address], License number: [id number].Clinical History___BLOOD SMEAR EVALUATIONCBC (06/14/2024 0245): WBC: 4.8 [...] and no clumpsSpecimen(s) ReceivedBlood Smear ReviewFee Codes(s):1; 71084 Reticulocytes/100 RBC (Bld)o n 06-14-2024 RETICULOCYTE COUNT 2.2 % Normal 0.4-2.2 [facility] Comment on above: Performed By: #### C BCA, CMP, 36166-3, 2777-1, TSHR, 3024-7, 5196-1, 5193-8, 4679-7, 77625-0 ####[facility] ([id number])[address] [address] SERUM IMMUNOFIXATIONon 06-14 IgA [Mass/Vol] 568 mg/dL High 68-378 [facility] Comment on above: Performed By: #### [address], [place], [place], 59622-4, 93752-6 ####[facility] ([id number])[address] [address] IgG [Mass/Vol] 1039 mg/dL Normal 635-1741 [facility] Comment on above: Performed By: #### [address], [place], [place], 77823-4, 87188-0 ####[facility] ([id number])[address] [address] IgM [Mass/Vol] 162 mg/dL Normal 45-281 [facility] Comment on above: Performed By: #### [address], [place], [place], 56436-8, 45653-4 ####[facility] ([id number])[address] [address] IMMUNE PROFILE INTERP SEE SEPARATE REPORT Normal [facility] Comment on above: Performed By: #### C [address], [place], [place], 28148-7, 34241-5 ####[facility] ([id number])[address], [address], [place] [address] SERUM PROTEIN ELECTROPHORESI Son 06-14-2024 ALPHA 1 GLOBULIN 0.4 g/dL Normal 0.1-0.4 [facility] Comment on above: Performed By: #### [address], [place], [place], 28779-1, 65483-3 ####[facility] ([id number])[address], [address], [place] [address] ALPHA 2 GLOBULIN 0.5 g/dL Normal 0.4-1.1 [facility] Comment on above: Performed By: #### [address], [place], [place], 01945-1, 67292-0 ####[facility] ([id number])[address], [address], [place] [address] BETA GLOBULIN 0.9 g/dL Normal 0.5-1.2 [facility] Comment on above: Performed By: #### [address], [place], [place], 99103-4, 07748-7 ####[facility] ([id number])[address], [address] [address] GAMMA GLOBULIN 1.0 g/dL Normal 0.5-1.6 [facility] Comment on above: Performed By: #### [address], [place], [place], 15568-8, 13047-2 ####[facility] ([id number])[address], [address], [place] [address] PROT. ELECTROPHORESIS INTERP SEE SEPARATE REPORT Normal [facility] Comment on above: Performed By: #### [address], [place], SPE, 15429-1, 75171-6 ####[facility] ([id number])[address], [address], [place] [address] Protein [Mass/Vol] 6.0 g/dL Normal 6.0-8.0 [facility] Comment on above: Performed By: #### [address], [place], SPE, 50020-2, 62778-2 ####[facility] ([id number])[address], [address] [place] [address] TSH WITH REFLEXon 06-14-2024 TSH 14.30 uIU/mL High 0.49-4.67 [facility] Comment on above: Performed By: #### F EPR, 2276-4, 85292-6, TSHR, 2284-8, 2132-9, 3024-7, 2532-0 ####[facility] ([id number])[address], [address] [place] [address] TSH 13.51 uIU/mL High 0.49-4.67 [facility] Comment on above: Performed By: #### C BCA, CMP, 50124-0, 2777-1, TSHR, 3024-7, 5196-1, 5193-8, 4679-7, 95041-3 ####[facility] ([id number])[address], [address] [place] [address] URINALYSISon 06-14-2024 Bilirubin Ql (U) Negative Normal NEG [facility] Comment on above: Performed By: #### Piotr Alvarado, UPCR ####[facility] ([id number])[address], [address] [place] [address] BLOOD/HGB Large Abnormal NEG [facility] Comment on above: Performed By: #### Piotr Alvarado, UPCR ####[facility] ([id number])[address], [address] [place] [address] Color (U) YELLOW Normal YELLOW [facility] Comment on above: Performed By: #### Piotr Alvarado, UPCR ####[facility] ([id number])[address], [address], [place] [address] Glucose Ql (U) Negative Normal NEG [facility] Comment on above: Performed By: #### Piotr Alvarado, UPCR ####[facility] ([id number])[address], [address], [place] [address] Hyaline casts LM Ql (Urine sed) 10 /lpf High 0-2 [facility] Comment on above: Performed By: #### Piotr Alvarado, UPCR ####[facility] ([id number])[address], [address] [address] Ketones Ql (U) Negative Normal NEG [facility] Comment on above: Performed By: #### Piotr Alvarado, UPCR ####[facility] ([id number])[address], [address] [place] [address] Leukocyte esterase Test strip Ql (U) Large Abnormal NEG [facility] Comment on above: Performed By: #### Piotr Alvarado, UPCR ####[facility] ([id number])[address], [address] [place] [address] MUCOUS PRESENT Abnormal NONE [facility] Comment on above: Performed By: #### Piotr Alvarado, UPCR ####[facility] ([id number])[address], [address] [address] Nitrite Ql (U) Negative Normal NEG [facility] Comment on above: Performed By: #### Piotr Alvarado, UPCR ####[facility] ([id number])[address], [address] [place] [address] pH (U) 5.5 [pH] Normal 5.0-8.5 [facility] Comment on above: Performed By: #### Piotr Alvarado, UPCR ####[facility] ([id number])[address], [address] [place] [address] Protein Ql (U) 50 mg/dL Abnormal NEG [facility] Comment on above: Performed By: #### U Christiano, UPCR ####[facility] ([id number])[address] [address] [place] [address] R.B.CELLS 140 /hpf High 0-5 [facility] Comment on above: Performed By: #### U Christiano, UPCR ####[facility] ([id number])[address] [address] [place] [address] Specific gravity (U) [Rel density] 1.011 Normal 1.003-1.03 5 [facility] Comment on above: Performed By: #### U Christiano, UPCR ####[facility] ([id number])[address] [address] SQUAMOUS EPITHELIUM 2 /hpf Normal 0-5 [facility] Comment on above: Performed By: #### Piotr Alvarado, UPCR ####[facility] ([id number])[address] [address] TRANSITIONAL EPITH <1 High 0 [facility] Comment on above: Performed By: #### Piotr Alvarado, UPCR ####[facility] ([id number])[address] [address] TURBIDITY HAZY Abnormal CLEAR [facility] Comment on above: Performed By: #### U Christiano, UPCR ####[facility] ([id number])[address] [address] Urinalysis dipstick W Reflex Microscopic panel (U) URINE RECEIVED WITHOUT PRESERVATIVE-DELAYS IN TRANSPORT MAY AFFECT RESULTS.INTERPRET WITH CAUTION AND CLINICAL CORRELATION IS RECOMMENDED. Normal [facility] Comment on above: Performed By: #### U Christiano, UPCR ####[facility] ([id number])[address] [address] Urobilinogen (U) [Mass/Vol] mg/dL Normal <1.1 [facility] Comment on above: Performed By: #### U A, UPCR ####[facility] ([id number])[address], [address] [address] W.B.CELLS 69 /hpf High 0-5 [facility] Comment on above: Performed By: #### U A, UPCR ####[facility] ([id number])[address], [address], [place] [address] URINE CULTUREon 06-14-2024 Bacteria identified Cx Nom (U) SPECIMEN NOTES URINE RECEIVED WITHOUT PRESERVATIVE CULTURE RESULTS NO GROWTH AT <1000 CFU/mL Normal [facility] Comment on above: Performed By: #### 6 30-4 ####[facility] ([id number])[address], [address], [place] [address] URINE PROTEIN ELECTROPHORESI Son 06-14-2024 UPREL INTERP SEE SEPARATE REPORT Normal [facility] US RETROPERITONEAL COMPLETEo n 06-14-2024 US RETROPERITONEAL COMPLETE Normal [facility] VENOUS BLOOD GASon ROBERT'S TEST Normal [facility] Comment on above: Performed By: #### V BG ####[facility] ([id number])[address] [place] [address] BASE,DEFICIT 9.0 MMOL/L High 0.0-2.0 [facility] Comment on above: Performed By: #### V BG ####[facility] ([id number])[address] [place] [address] Body temperature 98.6 [degF] Normal 37.0 [facility] Comment on above: Performed By: #### V BG ####[facility] ([id number])[address] [place] [address] HCO3 (Bld) [Moles/Vol] 19.9 mmol/L Low 20.0-24.0 [facility] Comment on above: Performed By: #### V BG ####[facility] ([id number])[address] [place] [address] INSP. O2 CONC. 100 % Normal [facility] Comment on above: Performed By: #### V BG ####[facility] ([id number])[address] [place] [address] Oxygen saturation in Blood 91.0 % Normal >80.0 [facility] Comment on above: Performed By: #### V BG ####[facility] ([id number])[address] [place] [address] OXYGEN SOURCE Vent Normal [facility] Comment on above: Performed By: #### V BG ####[facility] ([id number])[address] [place] [address] PCO2, VENOUS 56.6 MMHG High 35-50 [facility] Comment on above: Performed By: #### V BG ####[facility] ([id number])[address] [place] [address] PH, VENOUS 7.154 Low 7.320-7.42 0 [facility] Comment on above: Performed By: #### V BG ####[facility] ([id number])[address] [place] [address] PO2, VENOUS 78 MMHG High 30-50 [facility] Comment on above: Performed By: #### V BG ####[facility] ([id number])[address] [place] [address] SAMPLE SITE N/A Normal [facility] Comment on above: Performed By: #### V BG ####[facility] ([id number])[address] [facility] [place] [address] SAMPLE TYPE VENOUS Normal [facility] Comment on above: Performed By: #### V BG ####[facility] ([id number])[address] [place] [address] VITAMIN B12on 06-14-2024 Cobalamin (Vitamin B12) [Mass/Vol] 1093 pg/mL High 180-914 [facility] Comment on above: Performed By: #### F EPR, 2276-4, 12370-6, TSHR, 2284-8, 2132-9, 3024-7, 2532-0 ####[facility] ([id number])[address], [address] [place] [address] XR CHEST 1 VWon 06-14-2024 XR CHEST 1 VW Normal [facility] XR CHEST 1 VW Normal [facility] aPTT Coag (PPP) [Time]on aPTT Coag (Bld) [Time] 45 s High 26-37 [facility] Comment on above: Performed By: #### P INR, 08897-2 ####[facility] ([id number])[address], [address] [place] [address] BLOOD CULTUREon 06-13-2024 Bacteria identified Aer cx Nom (Bld) Normal [facility] Comment on above: Performed By: #### 1 7928-3 ####[facility] ([id number])[address], [address] [place] [address] Bacteria identified Aer cx Nom (Bld) SPECIMEN NOTES SUBOPTIMAL VOLUME OF BLOOD COLLECTED, RESULTS MAY BE AFFECTED. CULTURE RESULTS NO GROWTH 5 DAYS Normal [facility] Comment on above: Performed By: #### 1 7928-3 ####[facility] ([id number])[address], [address] [place] [address] CBC AND AUTO DIFFon 06-14-19 25 ABSOLUTE BASOPHIL 0.0 X10E9/L Normal 0.0-0.2 [facility] Comment on above: Performed By: #### C BCA, CMP, 47372-0, 2777-1, 38977-2, 26044-0, PINR, 17330-7 ####[facility] ([id number])[address], [address], [place] [address] ABSOLUTE NEUTROPHIL 3.7 X10E9/L Normal 1.5-6.6 [facility] Comment on above: Performed By: #### C BCA, CMP, 32557-3, 2777-1, 12237-0, 12586-3, PINR, 83073-6 ####[facility] ([id number])[address], [address] [place] [address] Basophils/100 WBC (Bld) 0.3 % Normal [facility] Comment on above: Performed By: #### C BCA, CMP, 12428-3, 2777-1, 27926-8, 73796-3, PINR, 54344-4 ####[facility] ([id number])[address] [address] [place] [address] Eosinophils (Bld) [#/Vol] 0.0 10*3/uL Normal 0.0-0.4 [facility] Comment on above: Performed By: #### C BCA, CMP, 02022-2, 2777-1, 30416-3, 65286-8, PINR, 43116-6 ####[facility] ([id number])[address] [address] [place] [address] Eosinophils/100 WBC (Bld) 0.2 % Normal [facility] Comment on above: Performed By: #### C BCA, CMP, 92369-0, 2777-1, 17332-8, 89997-8, PINR, 62986-4 ####[facility] ([id number])[address], [address] [place] [address] Erythrocyte distribution width (RBC) [Ratio] 16.8 % High 11.5-15.0 [facility] Comment on above: Performed By: #### C BCA, CMP, 49509-7, 2777-1, 29313-5, 10613-3, PINR, 71430-8 ####[facility] ([id number])[address], [address] [place] [address] Hematocrit (Bld) [Volume fraction] 24.9 % Low 35-47 [facility] Comment on above: Performed By: #### C BCA, CMP, 48011-8, 2777-1, 64079-8, 69937-1, PINR, 56210-2 ####[facility] ([id number])[address], [address] [address] Hemoglobin (Bld) [Mass/Vol] 8.2 g/dL Low 11.7-15.5 [facility] Comment on above: Performed By: #### C BCA, CMP, 60262-4, 2777-1, 63639-9, 18676-9, PINR, 34688-7 ####[facility] ([id number])[address] [address] [address] Lymphocytes (Bld) [#/Vol] 0.4 10*3/uL Low 1.0-3.5 [facility] Comment on above: Performed By: #### C BCA, CMP, 04540-8, 2777-1, 54588-9, 96095-2, PINR, 46068-7 ####[facility] ([id number])[address] [address] [address] Lymphocytes/100 WBC (Bld) 9.4 % Normal [facility] Comment on above: Performed By: #### C BCA, CMP, 96966-5, 2777-1, 28510-0, 54779-5, PINR, 69792-9 ####[facility] ([id number])[address] [address] MCH (RBC) [Entitic mass] 33.0 pg Normal 27-34 [facility] Comment on above: Performed By: #### C BCA, CMP, 01451-4, 2777-1, 80533-0, 83203-5, PINR, 95249-3 ####[facility] ([id number])[address], [address] [address] MCHC (RBC) [Mass/Vol] 32.8 g/dL Normal 32-36 [facility] Comment on above: Performed By: #### C BCA, CMP, 45152-5, 2777-1, 83937-6, 30212-3, PINR, 75686-6 ####[facility] ([id number])[address] [address] MCV (RBC) [Entitic vol] 101 fL High 80-100 [facility] Comment on above: Performed By: #### C BCA, CMP, 18475-7, 2777-1, 47759-1, 67104-0, PINR, 85364-8 ####[facility] ([id number])[address], [address] [address] Monocytes (Bld) [#/Vol] 0.5 10*3/uL Normal 0-0.9 [facility] Comment on above: Performed By: #### C BCA, CMP, 66653-2, 2777-1, 88283-5, 27050-9, PINR, 80466-6 ####[facility] ([id number])[address] [address] Monocytes/100 WBC (Bld) 10.9 % Normal [facility] Comment on above: Performed By: #### C BCA, CMP, 51643-2, 2777-1, 93002-1, 78199-4, PINR, 10047-0 ####[facility] ([id number])[address], [place] [address] Neutrophils/100 WBC (Bld) 79.2 % Normal [facility] Comment on above: Performed By: #### C BCA, CMP, 17920-7, 2777-1, 98615-4, 26807-6, PINR, 17164-6 ####[facility] ([id number])[address], [place] [address] Platelet mean volume (Bld) [Entitic vol] 7.2 fL Normal 7-12 [facility] Comment on above: Performed By: #### C BCA, CMP, 10596-7, 2777-1, 59645-2, 30704-3, PINR, 11837-1 ####[facility] ([id number])[address] [place] [address] Platelets (Bld) [#/Vol] 149 10*3/uL Low 150-450 [facility] Comment on above: Performed By: #### C BCA, CMP, 36198-7, 2777-1, 69126-7, 64292-8, PINR, 53391-2 ####[facility] ([id number])[address], [address], [place] [address] RBC COUNT 2.48 X10E12/L Low 3.80-5.20 [facility] Comment on above: Performed By: #### C BCA, CMP, 43900-6, 2777-1, 46734-9, 19798-6, PINR, 12061-7 ####[facility] ([id number])[address], [address], [place] [address] WBC (Bld) [#/Vol] 4.7 10*3/uL Normal 4.0-11.0 [facility] Comment on above: Performed By: #### C BCA, CMP, 02834-9, 2777-1, 02583-7, 68628-5, PINR, 25690-7 ####[facility] ([id number])[address] [address] COMPREHENSIVE METABOLIC PANE Kael 06-13-2024 Albumin [Mass/Vol] 3.4 g/dL Normal 3.2-5.3 [facility] Comment on above: Performed By: #### C BCA, CMP, 95566-7, 2777-1, 66724-0, 72619-7, PINR, 37914-3 ####[facility] ([id number])[address], [address], [place] [address] ALP [Catalytic activity/Vol] 139 U/L High 39-130 [facility] Comment on above: Performed By: #### C BCA, CMP, 76368-8, 2777-1, 53677-5, 69273-3, PINR, 02622-7 ####[facility] ([id number])[address], [address], [place] [address] ALT [Catalytic activity/Vol] 4 U/L Normal 0-31 [facility] Comment on above: Performed By: #### C BCA, CMP, 56298-9, 2777-1, 54723-8, 82800-1, PINR, 30756-4 ####[facility] ([id number])[address], [address], [place] [address] Anion gap [Moles/Vol] 12 mmol/L Normal 5-15 [facility] Comment on above: Performed By: #### C BCA, CMP, 19255-2, 2777-1, 40305-4, 06922-4, PINR, 42837-3 ####[facility] ([id number])[address], [address] [place] [address] AST [Catalytic activity/Vol] 15 U/L Normal 0-41 [facility] Comment on above: Performed By: #### C BCA, CMP, 89235-9, 2777-1, 51076-6, 07986-5, PINR, 11004-3 ####[facility] ([id number])[address], [address], [place] [address] Bilirubin [Mass/Vol] 0.9 mg/dL Normal 0.3-1.2 [facility] Comment on above: Performed By: #### C BCA, CMP, 36766-7, 2777-1, 86167-1, 00431-1, PINR, 53060-2 ####[facility] ([id number])[address], [address] [place] [address] Calcium [Mass/Vol] 8.2 mg/dL Low 8.5-10.5 [facility] Comment on above: Performed By: #### C BCA, CMP, 25538-1, 2777-1, 69907-0, 94211-5, PINR, 57221-3 ####[facility] ([id number])[address], [address] [place] [address] Chloride [Moles/Vol] 99 mmol/L Normal 98-109 [facility] Comment on above: Performed By: #### C BCA, CMP, 48899-9, 2777-1, 61389-1, 58422-6, PINR, 56396-8 ####[facility] ([id number])[address], [address] [place] [address] CO2 [Moles/Vol] 20 mmol/L Low 22-32 [facility] Comment on above: Performed By: #### C BCA, CMP, 65240-4, 2777-1, 97121-5, 81011-3, PINR, 79691-6 ####[facility] ([id number])[address], [address], [place] [address] Creatinine [Mass/Vol] 3.34 mg/dL High 0.40-1.00 [facility] Comment on above: Result Comment: METH OD TRACEABLE TO IDMS STANDARD Performed By: #### C BCA, CMP, 46941-1, 2777-1, 41625-8, 80819-3, PINR, 20324-6 ####[facility] ([id number])[address], [address] [address] GFR/1.73 sq M.predicted among non-blacks MDRD (S/P/Bld) [Vol rate/Area] 15 mL/min/{1.73_m2} Low >59 [facility] Comment on above: Result Comment: Repo rted eGFR is based on theCKD-EPI 2020 equation that doesnot use a race coefficient. Performed By: #### C BCA, CMP, 57703-7, 2777-1, 79352-4, 80935-9, PINR, 60607-7 ####[facility] ([id number])[address], [address] [place] [address] Glucose [Mass/Vol] 85 mg/dL Normal 65-99 [facility] Comment on above: Performed By: #### C BCA, CMP, 08556-9, 2777-1, 83399-8, 77747-3, PINR, 94848-9 ####[facility] ([id number])[address] [address] [place] [address] Potassium [Moles/Vol] 4.8 mmol/L Normal 3.5-5.0 [facility] Comment on above: Performed By: #### C BCA, CMP, 75657-0, 2777-1, 44278-9, 99708-8, PINR, 29362-7 ####[facility] ([id number])[address] [address] [place] [address] Protein [Mass/Vol] 6.3 g/dL Normal 6.0-8.0 [facility] Comment on above: Performed By: #### C BCA, CMP, 47238-6, 2777-1, 82937-5, 06611-3, PINR, 42783-4 ####[facility] ([id number])[address], [address] [address] Sodium [Moles/Vol] 131 mmol/L Low 134-146 [facility] Comment on above: Performed By: #### C BCA, CMP, 92604-5, 2777-1, 44625-4, 85611-6, PINR, 41920-8 ####[facility] ([id number])[address], [address], [place] [address] Urea nitrogen [Mass/Vol] 43 mg/dL High 5-27 [facility] Comment on above: Performed By: #### C BCA, CMP, 38032-9, 2777-1, 40748-0, 11602-1, PINR, 42901-5 ####[facility] ([id number])[address], [address] [place] [address] Glucose Glucometer (BldC) [M ass/Vol]on 06-13-2024 Glucose [Mass/Vol] 88 mg/dL Normal 65-99 [facility] - Chemistry and C hemistry - challengeon 06-13-2024 HCO3 (Bld) [Moles/Vol] 19.8 mmol/L Low 22.0-26.0 [facility] Ammonia (P) [Moles/Vol] 59 umol/L Critically high 11-32 [facility] Comment on above: RESULTS CALLED TO donte brink rn @BY Delmi Quiles [id number] Amylase [Catalytic activity/Vol] 39 U/L 25-115 [facility] Lactate [Moles/Vol] 1.1 mmol/L 0.4-2.0 [facility] Lipase [Catalytic activity/Vol] 36.0 U/L 16.0-77.0 [facility] Magnesium [Mass/Vol] 1.0 mg/dL Low 1.8-2.4 [facility] T4 [Mass/Vol] 2.20 ug/dL Low 4.80-13.90 [facility] TSH Qn 13.271 m[IU]/L High 0.358-3.74 0 [facility] Laboratory - Microbiology an d Antimicrobial susceptibilityon 06-13-2024 SARS-CoV-2 (COVID-19) RNA YVONNE+probe Ql (Unsp spec) Negative NEGATIVE [facility] Comment on above: This test has not [...] diagnosis of Covid-19 under section 564(b)(1) of the[facility]ed [facility], 21 U.[place].C. 360bbb-3(b)(1), unless the declaration isterminated or authorization is revoked sooner. Lactate (P mikey) [Moles/Vol]o n 06-13-2024 LACTATE W/REFLEX 0.8 mmol/L Normal 0.4-2.0 [facility] Comment on above: Result Comment: Resu lt did not trigger repeat Lactate,re-order if needed. Performed By: #### C BCA, CMP, 95027-4, 2777-1, 21802-1, 98964-5, PINR, 48905-6 ####[facility] ([id number])[address], [address] [place] [address] MAGNESIUMon 06-13-2024 Magnesium [Mass/Vol] 1.0 mg/dL Low 1.8-2.6 [facility] Comment on above: Performed By: #### C BCA, CMP, 23857-0, 2777-1, 33195-6, 01682-9, PINR, 81638-8 ####[facility] ([id number])[address] [facility], [address] [place] [address] MRSA PCR NASALon 06-13-2024 MRSA DNA YVONNE+probe Ql (Unsp spec) Positive Abnormal NEG [facility] Comment on above: Performed By: #### 3 5492-8 ####[facility] ([id number])[address] [facility], [address] [place] [address] Natriuretic peptide B [Mass/ Vol]on 06-13-2024 Natriuretic peptide B (Bld) [Mass/Vol] 1765 pg/mL High <100.0 [facility] Comment on above: Performed By: #### C BCA, CMP, 72799-8, 2777-1, 50569-6, 63890-2, PINR, 90457-9 ####[facility] ([id number])[address] [facility], [address] [place] [address] No Panel Informationon 06-13 Robert Test Positive POSITIVE [facility] Arterial Blood Base Excess -8.6 mmol/L Low <2.0-2.0 [facility] Arterial Blood Oxygen Saturation 99.5 % [facility] Arterial Blood Partial Pressure CO2 53.0 mm[Hg] Critically high 35.0-45.0 [facility] Comment on above: RESULTS CALLED TO BRITTANEY PACHECO RN Arterial Blood Partial Pressure O2 120.0 mm[Hg] High 80.0-100.0 [facility] Arterial Blood pH 7.181 Critically low 7.350-7. 45 0 [facility] Comment on above: RESULTS CALLED TO BRITTANEY PACHECO RN Blood Gas Mode BiPAP 23/11 [facility] Blood Gas Sample Site RR [facility] Blood Gas Set Respiration Rate 12 [facility] Blood Gas Tidal Volume 466 [facility] Blood Gas Ventilator Mode ST [facility] FiO2 35 % [facility] Oxygen Delivery Device BIPAP [facility] Reference Lab Test #2 Result 9.3 [facility] Troponin I High Sensitivity 78.0 pg/mL Critically high 4.0-51.3 [facility] Comment on above: RESULTS CALLED TO DONTE [...] CLINICAL INFORMATION. Blood Gas Liter Flow 3 [facility] Venous Blood Partial Pressure CO2 51.2 mm[Hg] 40.0-52.0 [facility] Venous Blood pH 7.172 Low 7.330-7.43 0 [facility] Bedside Influenza Type A Antigen Negative [facility] Comment on above: Negative for Flu A p rotein antigen. Infection due to Flu Acannot be ruled out. Flu A antigen in the sample may bebelow the detection limit of the test. Bedside Influenza Type B Antigen Negative [facility] Comment on above: Negative for Flu B p rotein antigen. Infection due to Flu Bcannot be ruled out. Flu B antigen in the sample may bebelow the detection limit of the test. RSV RNA Qual (PCR)([facility]) Not detected NOT DETECTE [facility] PHOSPHORUSon 06-13-2024 Phosphate [Mass/Vol] 6.8 mg/dL High 2.4-4.9 [facility] Comment on above: Performed By: #### C RENA THEODORE, 29604-7, 2777-1, 09924-2, 44367-1, PINR, 20915-2 ####[facility] ([id number])[address], [address], [place] [address] PROTIME AND INRon 06-13-2024 INR Coag (PPP) [Relative time] 1.4 {INR} High 0.9-1.2 [facility] Comment on above: Performed By: #### C RENA THEODORE, 18927-8, 2777-1, 34056-0, 45659-2, PINR, 61166-1 ####[facility] ([id number])[address], [address], [place] [address] PT Coag (PPP) [Time] 16.3 s High 9.8-13.2 [facility] Comment on above: Performed By: #### C EWELINA, CMP, 87488-4, 2777-1, 34059-1, 37186-6, PINR, 78637-0 ####[facility] ([id number])[address], [address] [place] [address] Procalcitonin IA [Mass/Vol]o n 06-13-2024 PROCALCITONIN 0.22 ng/mL High <0.05 [facility] Comment on above: Result Comment: NOTE <0.50 ng/mL - Low risk of severe sepsis and/or septic shock.<2.00 ng/mL - Recommend retesting within 6-24 hours.>2.00 ng/mL - High risk of sepsis and/or septic shock. Performed By: #### C EWELINA, CMP, 90250-4, 2777-1, 03302-7, 89453-2, PINR, 45225-6 ####[facility] ([id number])[address], [address] [place] [address] RESP PATHOGENS/IJID-[id number] 06-13-2024 Respiratory pathogens DNA and RNA panel YVONNE+non-probe (Nph) Normal [facility] Comment on above: Performed By: #### 8 2159-5 ####[facility] ([id number])[address], [address] [place] [address] Troponin I.cardiac High sens itivity method [Mass/Vol]on 06-13-2024 1 HOUR TROP I, HIGH SENSITIVITY 58 ng/L High <16 [facility] Comment on above: Result Comment: Elev ations of hs-Troponin may be due to causesother than myocardial ischemia.Recommend serial hs-Troponin testing be performed.For the initial evaluation and management of chestpain patients, refer to the algorithms linked below.Emergency Patient:[email or web address]:[email or web address]=acaea Performed By: #### 8 9579-7 ####[facility] ([id number])[address], [address], [place] [address] TROPONIN I, HIGH SENSITIVITY 61 ng/L High <16 [facility] Comment on above: Result Comment: Elev ations of hs-Troponin may be due to causesother than myocardial ischemia.Recommend serial hs-Troponin testing be performed.For the initial evaluation and management of chestpain patients, refer to the algorithms linked below.Emergency Patient:[email or web address]=[email or web address]:[email or web address] Performed By: #### 8 9579-7 ####[facility] ([id number])[address], [address] [place] [address] VENOUS BLOOD GASon 5 ROBERT'S TEST Normal [facility] Comment on above: Performed By: #### V BG ####[facility] ([id number])[address] [facility] [address] BASE,DEFICIT 8.0 MMOL/L High 0.0-2.0 [facility] Comment on above: Performed By: #### V BG ####[facility] ([id number])[address] [facility] [address] Body temperature 98.6 [degF] Normal 37.0 [facility] Comment on above: Performed By: #### V BG ####[facility] ([id number])[address] [place] [address] HCO3 (Bld) [Moles/Vol] 21.2 mmol/L Normal 20.0-24.0 [facility] Comment on above: Performed By: #### V BG ####[facility] ([id number])[address] [place] [address] INSP. O2 CONC. 40 % Normal [facility] Comment on above: Performed By: #### V BG ####[facility] ([id number])[address] [place] [address] Oxygen saturation in Blood 62.0 % Low >80.0 [facility] Comment on above: Performed By: #### V BG ####[facility] ([id number])[address] [place] [address] OXYGEN SOURCE NC Normal [facility] Comment on above: Performed By: #### V BG ####[facility] ([id number])[address] [place] [address] PCO2, VENOUS 62.5 MMHG High 35-50 [facility] Comment on above: Performed By: #### V BG ####[facility] ([address] [place] [address])[address]141 [place] [address] PH, VENOUS 7.139 Low 7.320-7.42 0 [facility] Comment on above: Performed By: #### V BG ####[facility] ([id number])[address] [place] [address] PO2, VENOUS 42 MMHG Normal 30-50 [facility] Comment on above: Performed By: #### V BG ####[facility] ([id number])[address] [place] [address] SAMPLE SITE N/A Normal [facility] Comment on above: Performed By: #### V BG ####[facility] ([id number])[address] [place] [address] SAMPLE TYPE VENOUS Normal [facility] Comment on above: Performed By: #### V BG ####[facility] ([id number])[address] [place] [address] XR CHEST 1 VWon 06-13-2024 XR CHEST 1 VW Normal [facility] Basophils Auto (Bld) [#/Vol] on 06-12-2024 Basophils (Bld) [#/Vol] Automated basophil count 0.0-0.1 [facility] Basophils/100 WBC Auto (Bld) on 06-12-2024 Basophils/100 WBC (Bld) Automated basophil % 0. 2-2.0 [facility] Eosinophils/100 WBC Auto (Bl d)on 06-12-2024 Eosinophils/100 WBC (Bld) Automated eosinophil % Low 0.9-7.0 [facility] Erythrocyte distribution wid th Auto (RBC) [Ratio]on 06-12-2024 Erythrocyte distribution width (RBC) [Ratio] Erythrocyte distribution width [Ratio] by Automated count High 11.0-15.0 [facility] Estimated glomerular filtrat ion rate (GFR) non- Americanon 06-12-2024 GFR/1.73 sq M.predicted among non-blacks MDRD (S/P/Bld) [Vol rate/Area] Estimated glomerular filtration rate (GFR) non- Low >=60 mL/min/1.7 3m 2 [facility] Globulin Calc (S) [Mass/Vol] on 06-12-2024 Globulin (S) [Mass/Vol] Serum globulin measurement by calculation (mass/volume) [facility] Hematocrit Auto (Bld) [Volum e fraction]on 06-12-2024 Hematocrit (Bld) [Volume fraction] Hematocrit [Volume Fraction] of Blood by Automated count Low 36.0-48.0 [facility] Hemoglobin [Mass/volume] in Bloodon 06-12-2024 Hemoglobin (Bld) [Mass/Vol] Hemoglobin [Mass/volume] in Blood Low 12.0-16.0 [facility] INR in Platelet poor plasma by Coagulation assayon 06-12-2024 INR Coag (PPP) [Relative time] INR in Platelet poor plasma by Coagulation assay [facility] Comment on above: DESIRED INR:2.0-3.0 CONDITIONS NOT LISTED BELOW2.5-3.5 FOR PROSTHETIC HEART VALVE REPLACEMENT2.5-3.5 RECURRENT THROMBOSIS Laboratory - Chemistry and C hemistry - challengeon 06-12-2024 Albumin [Mass/Vol] 2.7 g/dL Low 3.4-5.0 [facility] ALP [Catalytic activity/Vol] 170 U/L High 46-116 [facility] ALT [Catalytic activity/Vol] 11 U/L Low 14-59 [facility] AST [Catalytic activity/Vol] 20 U/L 15-37 [facility] Bilirubin [Mass/Vol] 0.6 mg/dL 0.2-1.0 [facility] Calcium [Mass/Vol] 8.2 mg/dL Low 8.5-10.1 [facility] Chloride [Moles/Vol] 96 mmol/L Low 98-107 [facility] CO2 [Moles/Vol] 18.4 mmol/L Low 21.0-32.0 [facility] Creatinine [Mass/Vol] 3.36 mg/dL High 0.55-1.02 [facility] GFR/1.73 sq M.predicted MDRD (S/P/Bld) [Vol rate/Area] 17 mL/min/{1.73_m2} Low >=60 mL/min/1.7 3m 2 [facility] Glucose [Mass/Vol] 68 mg/dL Low 74-106 [facility] Lactate [Moles/Vol] 2.4 mmol/L Critically high 0.4-2.0 [facility] Comment on above: RESULTS CALLED TO ORVILLE SOTO RN at 2014 Natriuretic peptide B (Bld) [Mass/Vol] pg/mL Critically high <=900.0 [facility] Comment on above: RESULTS CALLED TO NIKOS SYED NP at 2021 Potassium [Moles/Vol] 4.8 mmol/L 3.5-5.1 [facility] Protein [Mass/Vol] 6.9 g/dL 6.4-8.2 [facility] Sodium [Moles/Vol] 128 mmol/L Low 136-145 [facility] Urea nitrogen [Mass/Vol] 39.0 mg/dL High 7.0-18.0 [facility] Urea nitrogen/Creatinine [Mass ratio] 11.6 mg/mg [facility] Bilirubin Ql (U) Negative NEGATIVE [facility] Glucose (U) [Mass/Vol] Negative NEGATIVE [facility] Ketones Ql (U) Negative NEGATIVE [facility] pH (U) 5.5 [pH] 5.0-9.0 [facility] Specific gravity (U) [Rel density] 1.025 1.005-1.02 5 [facility] Urobilinogen Qn (U) 0.2 {Pascale'U}/dL 0.2-1.0 [facility] Laboratory - Hematology and Cell countson 06-12-2024 Immature granulocytes/100 WBC (Bld) 1.1 % High 0.0-0.5 [facility] - Specimen inform ationon 06-12-2024 Appearance (U) SL CLOUDY CLEAR [facility] Color (U) YELLOW YELLOW [facility] Laboratory - Urinalysison Leukocyte esterase Test strip Ql (U) Negative NEGATIVE [facility] Mucus Ql (Urine sed) NONE SEEN NONE SEEN [facility] Nitrite Ql (U) Negative NEGATIVE [facility] Protein Ql (U) >=300 mg/dL Abnormal NEG/TRACE [facility] Leukocytes [#/volume] correc maxi for nucleated erythrocytes in Blood by Automated counon 06-12-2024 WBC corrected for nucl RBC Auto (Bld) [#/Vol] Leukocytes [#/volume] corrected for nucleated erythrocytes in Blood by Automated coun 4.0-11.0 [facility] Lymphocytes Auto (Bld) [#/Vo l]on 06-12-2024 Lymphocytes (Bld) [#/Vol] Lymphocytes [#/volume] in Blood by Automated count Low 1.2-3.8 [facility] Lymphocytes/100 WBC Auto (Bl d)on 06-12-2024 Lymphocytes/100 WBC (Bld) Lymphocytes/100 leukocytes in Blood by Automated count Low 20.5-60.0 [facility] MCH Auto (RBC) [Entitic mass ]on 06-12-2024 MCH (RBC) [Entitic mass] MCH [Entitic ma ss] by Automated count 26.7-34.0 [facility] MCHC Auto (RBC) [Mass/Vol]on 06-12-2024 MCHC (RBC) [Mass/Vol] MCHC [Mass/volume] by Automated count 29.9-35.2 [facility] MCV Auto (RBC) [Entitic vol] on 06-12-2024 MCV (RBC) [Entitic vol] MCV [Entitic vol ume] by Automated count High 81.0-99.0 [facility] Monocytes Auto (Bld) [#/Vol] on 06-12-2024 Monocytes (Bld) [#/Vol] Automated blood monocyte count 0.3-0.8 [facility] Monocytes/100 WBC Auto (Bld) on 06-12-2024 Monocytes/100 WBC (Bld) Automated monocyte % 1. 7-12.0 [facility] Neutrophils Auto (Bld) [#/Vo l]on 06-12-2024 Neutrophils (Bld) [#/Vol] Neutrophils [#/volume] in Blood by Automated count 1.4-6.5 [facility] Neutrophils/100 WBC Auto (Bl d)on 06-12-2024 Neutrophils/100 WBC (Bld) Automated neutrophil % High 43.0-75.0 [facility] No Panel Informationon 06-12 Ethyl Alcohol Level 33 mg/dL [facility] Comment on above: NOTE: 80 mg/dl is th e legal limit for a blood alcohol level Troponin I High Sensitivity 58.7 pg/mL Critically high 4.0-51.3 [facility] Comment on above: RESULTS CALLED TO NIKOS [...] Eosinophils # (Auto) 0.0 10 3/uL 0.0-0.7 [facility] Immature Granulocyte # (Auto) 0.06 10 3/uL High 0.00-0.03 [facility] Urine Bacteria MODERATE #/HPF Abnormal NONE SEEN [facility] Urine Microscopic Review YES [facility] Urine Occult Blood TRACE-I NEGATIVE [facility] Urine Other Casts NONE SEEN #/LPF NONE SEEN [facility] Urine Other Crystals None Seen #/HPF None Seen [facility] Urine RBC 0-2 #/HPF 0-2 [facility] Urine Squamous Epithelial Cells FEW #/LPF Abnormal NONE/RARE [facility] Urine WBC 2-5 #/HPF Abnormal NONE SEEN [facility] Platelet mean volume Auto (B ld) [Entitic vol]on 06-12-2024 Platelet mean volume (Bld) [Entitic vol] Platelet mean volume [Entitic volume] in Blood by Automated count Low 9.5-13.5 [facility] Platelets Auto (Bld) [#/Vol] on 06-12-2024 Platelets (Bld) [#/Vol] Platelets [#/vol ume] in Blood by Automated count 150-450 [facility] Prothrombin time (PT)on PT Coag (PPP) [Time] Prothrombin time (PT) High 9.0- 11.6 [facility] RBC Auto (Bld) [#/Vol]on RBC (Bld) [#/Vol] Erythrocytes [#/volu me] in Blood by Automated count Low 4.20-5.40 [facility] Serum or plasma albumin/glob ulin mass ratioon 06-12-2024 Albumin/Globulin [Mass ratio] Serum or plasma albumin/globulin mass ratio [facility] Serum or plasma anion gap de terminationon 06-12-2024 Anion gap [Moles/Vol] Serum or plasma an ion gap determination [facility] Urine Cultureon 06-12-2024 Bacteria identified Cx Nom (U) No Growth 2 Days PERFORMED BY: [facility] [address] [place] [address] PATHOLOGIST WARNING COORDINATION METEOROLOGIST SALLY RENNER M.D. Normal [facility] Comment on above: Performed By: #### C UU #### [facility] [address] Pathology study report docum entOrdered By: Maury Schafer on 02-22-2024 Pathology study [facility] Other Phone: Kael 02-19-2024 L ----- Specimen: [id number] Received: 02/20/24 Status: MARCELO Jethro Num: [id number] Spec Type: Surgical Subm Dr: Cody Neves MD Tissues: A BREAST CORE NO CALCS (LEFT BREAST) Procedures: Lilibeth DOVER/John L4 Age/ Patient Sex Location Account Attending Physician Orestes Alvares 59/F [facility] [id number] Katie Velasquez APRN, SPEC NUM: [id number] RECD: 02/20/24 STATUS: MARCELO SANCHEZ NUM: [id number] LYNDSEY: 02/19/[address] [facility] [address]: Cody Neves MD ENTERED: 02/20/[address] [facility] [address]: Kim,Lab Katie Velasquez, PETAL CUTTER, TRAVELING CONSTRUCTION SUPERINTENDENT SPEC TYPE: Surgical DEPT: JUANIS PERES ENTERED BY: [id number] RECV BY: [id number] ORDERED: HE/4, Gross/Micro L4 ORDERED: HE/4, Gross/Micro [...] Time specimen placed in formalin: 1506 Specimen: [id number] Received: 02/20/24 Status: MARCELO Sanchez Num: [id number] Spec Type: Surgical Subm Dr: Cody Neves MD Tissues: A BREAST CORE NO CALCS (LEFT BREAST) Procedures: RAMYALilibeth/John L4 Patient: Orestes Alvares [id number] (Continued) Specimen: [id number] Received: 02/20/24 (Continued) Gross Description (Continued) Signed (signature on file) Maury Schafer MD 02/22/24 1036 Specimen: [id number] Received: 02/20/24 Status: MARCELO Sanchez Num: [id number] Spec Type: Surgical Subm Dr: Cody Neves MD Tissues: A BREAST CORE NO CALCS (LEFT BREAST) Procedures: Lilibeth/Micro L4 Patient: Orestes Alvares [id number] (Continued) Specimen: [id number] Received: 02/20/24 (Continued) Gross Description (Continued) Cold ischemic time: 2 minutes Total fixation time: 26 hours and 30 minutes (2, lio, [id number] A) Batool Microscopic Description Microscopic examination is performed. CPT Codes 32643 Specimen: [id number] Received: 02/20/24 Status: MARCELO Sanchez Num: [id number] Spec Type: Surgical Subm Dr: Cody Neves MD Tissues: A BREAST CORE NO CALCS (LEFT BREAST) Procedures: HE/4, Gross/Micro L4 Patient: Orestes Alvares [id number] (Continued) Signed (signature on file) Maury Schafer MD 02/22/24 1036 Normal [facility] Activated partial thrombopla stin time (aPTT) in platelet poor plasma by coagulation aOrdered By: Caden Jarrell on 03-15-2022 aPTT Coag (PPP) [Time] 30.8 s 25.1-36.5 [facility] Basophils Auto (Bld) [#/Vol] Ordered By: Caden Jarrell on 03-15-2022 Basophils (Bld) [#/Vol] 0.1 10*3/uL 0.0-0.2 [facility] Basophils/100 WBC Auto (Bld) Ordered By: Caden Jarrell on 03-15-2022 Basophils/100 WBC (Bld) 0.9 % . [facility] Creatine kinase [Enzymatic a ctivity/volume] in Serum or PlasmaOrdered By: Caden Jarrell on 03-15-2022 CK [Catalytic activity/Vol] 33 U/L 22-269 [facility] Creatinine and Glomerular fi ltration rate.predicted panel (S/P/Bld)Ordered By: Caden Jarrell on 03-15-2022 Creatinine [Mass/Vol] 1.34 mg/dL 0.44-1.03 [facility] Eosinophils Auto (Bld) [#/Vo l]Ordered By: Caden Jarrell on 03-15-2022 Eosinophils (Bld) [#/Vol] 0.0 10*3/uL 0.0-0.45 [facility] Eosinophils/100 WBC Auto (Bl d)Ordered By: Caden Jarrell on 03-15-2022 Eosinophils/100 WBC (Bld) 0.2 % . [facility] Erythrocyte distribution wid th Auto (RBC) [Ratio]Ordered By: Caden Jarrell on 03-15-2022 Erythrocyte distribution width (RBC) [Ratio] 13.6 % 11.9-15.3 [facility] Estimated glomerular filtrat ion rate (GFR) non- AmericanOrdered By: Caden Jarrell on 03-15-2022 GFR/1.73 sq M.predicted among non-blacks MDRD (S/P/Bld) [Vol rate/Area] 40 mL/Min [facility] Hematocrit Auto (Bld) [Volum e fraction]Ordered By: Caden Jarrell on 03-15-2022 Hematocrit (Bld) [Volume fraction] 31.6 % 34.0-46.4 [facility] Hemoglobin [Mass/volume] in BloodOrdered By: Caden Jarrell on 03-15-2022 Hemoglobin (Bld) [Mass/Vol] 11.0 g/dL 11.8-15.4 [facility] Laboratory - Chemistry and C hemistry - challengeOrdered By: Caden Jarrell on 03-15-2022 Natriuretic peptide B (Bld) [Mass/Vol] 1767.0 pg/mL 5-100 [facility] Laboratory - CoagulationOrde red By: Caden Jarrell on 03-15-2022 PT Coag (PPP) [Time] 13.2 s 9.0-12.9 [facility] Leukocytes [#/volume] correc maxi for nucleated erythrocytes in Blood by Automated counOrdered By: Caden Jarrell on 03-15-2022 WBC corrected for nucl RBC Auto (Bld) [#/Vol] 7.8 10*3/uL 3.8-11.6 [facility] Lymphocytes Auto (Bld) [#/Vo l]Ordered By: Caden Jarrell on 03-15-2022 Lymphocytes (Bld) [#/Vol] 0.8 10*3/uL 1.00-4.8 [facility] Lymphocytes/100 WBC Auto (Bl d)Ordered By: Caden Jarrell on 03-15-2022 Lymphocytes/100 WBC (Bld) 10.6 % . [facility] MCH Auto (RBC) [Entitic mass ]Ordered By: Caden Jarrell on 03-15-2022 MCH (RBC) [Entitic mass] 32.1 pg 24.7-34.3 [facility] MCHC Auto (RBC) [Mass/Vol]Or dered By: Caden Jarrell on 03-15-2022 MCHC (RBC) [Mass/Vol] 34.7 g/dL 32.0-35.0 [facility] MCV Auto (RBC) [Entitic vol] Ordered By: Caden Jarrell on 03-15-2022 MCV (RBC) [Entitic vol] 92.3 fL 80-100 [facility] Monocyte distribution width [Entitic volume] in Blood by AutomatedOrdered By: Caden Jarrell on 03-15-2022 Monocyte distribution width Auto (Bld) [Entitic vol] 19.45 % 0.00-20.00 [facility] Monocytes Auto (Bld) [#/Vol] Ordered By: Caden Jarrell on 03-15-2022 Monocytes (Bld) [#/Vol] 0.8 10*3/uL 0.0-0.8 [facility] Monocytes/100 WBC Auto (Bld) Ordered By: Caden Jarrell on 03-15-2022 Monocytes/100 WBC (Bld) 10.2 % . [facility] Neutrophils Auto (Bld) [#/Vo l]Ordered By: Caden Jarrell on 03-15-2022 Neutrophils (Bld) [#/Vol] 6.1 10*3/uL 1.8-7.7 [facility] Neutrophils/100 WBC Auto (Bl d)Ordered By: Caden Jarrell on 03-15-2022 Neutrophils/100 WBC (Bld) 78.1 % . [facility] No Panel InformationOrdered By: Caden Jarrell on 03-15-2022 Estimated GFR () 49 mL/Min [facility] Comment on above: GFR estimated refere nce range: According to KDOQI guidelines, <60 ml/min/1.73m2 is sufficient to diagnose a patient with chronic kidney disease. Pharmacy Creatinine Clearance (Chem 43.20 [facility] Nucleated erythrocytes [Pres ence] in Blood by Automated countOrdered By: Caden Jarrell on 03-15-2022 Nucleated RBC Auto Ql (Bld) 0.1 /100{WBC} 0-0.5 [facility] Platelet mean volume Auto (B ld) [Entitic vol]Ordered By: Caden Jarrell on 03-15-2022 Platelet mean volume (Bld) [Entitic vol] 7.1 fL 6.3-10.7 [facility] Platelet poor plasma interna tional normalized ratio (INR) by coagulation assay (relatOrdered By: Caden Jarrell on 03-15-2022 INR Coag (PPP) [Relative time] 1.2 {INR} [facility] Comment on above: INR Therapeutic Rang e [...] 03-15-2022 Platelets (Bld) [#/Vol] 277 10*3/uL 150-450 [facility] RBC Auto (Bld) [#/Vol]Ordere d By: Caden Jarrell on 03-15-2022 RBC (Bld) [#/Vol] 3.43 10*6/uL 3.60-5.00 [facility] Serum or plasma anion gap de terminationOrdered By: Caden Jarrell on 03-15-2022 Anion gap [Moles/Vol] 14.5 mmol/L 6.0-15.0 [facility] Serum or plasma calcium sigifredo urement (mass/volume)Ordered By: Caden Jarrell on 03-15-2022 Calcium [Mass/Vol] 9.3 mg/dL 8.2-10.2 [facility] Serum or plasma chloride matti surement (moles/volume)Ordered By: Caden Jarrell on 03-15-2022 Chloride [Moles/Vol] 95 mmol/L 95-114 [facility] Serum or plasma creatine kin ase MB (CKMB)/total creatine kinase (CK) ratio by calculaOrdered By: Caden Jarrell on 03-15-2022 CK.MB Calc [Catalytic fraction] 5.1 % 0.00-2.50 [facility] Serum or plasma creatine kin ase MB measurement (mass/volume)Ordered By: Caden Jarrell on 03-15-2022 CK.MB [Mass/Vol] 1.7 ng/mL 0.6-6.3 [facility] Serum or plasma glucose sigifredo urement (mass/volume)Ordered By: Caden Jarrell on 03-15-2022 Glucose [Mass/Vol] 129 mg/dL 70-100 [facility] Comment on above: ADA recommended refe rence rangeRandom Glucose Reference Range is dependent on time and content of last meal. Glucose of more than 200 mg/dL in a nonstressed, ambulatory subject supports the diagnosis of Diabetes Mellitus. Serum or plasma potassium me asurement (moles/volume)Ordered By: Caden Jarrell on 03-15-2022 Potassium [Moles/Vol] 3.4 mmol/L 3.5-5.1 [facility] Serum or plasma sodium measu rement (moles/volume)Ordered By: Caden Jarrell on 03-15-2022 Sodium [Moles/Vol] 129 mmol/L 136-146 [facility] Serum or plasma total carbon dioxide measurement (moles/volume)Ordered By: Caden Jarrell on 03-15-2022 CO2 [Moles/Vol] 22.9 mmol/L 22.0-30.0 [facility] Serum or plasma urea nitroge n measurement (mass/volume)Ordered By: Caden Jarrell on 03-15-2022 Urea nitrogen [Mass/Vol] 14 mg/dL 9- [facility] Troponin I.cardiac [Mass/vol ume] in Serum or Plasma by High sensitivity methodOrdered By: Caden Jarrell on 03-15-2022 Troponin I.cardiac High sensitivity method [Mass/Vol] 24 pg/mL 0-15 [facility] WBC Auto (Bld) [#/Vol]Ordere d By: Caden Jarrell on 03-15-2022 WBC (Bld) [#/Vol] 7.8 10*3/uL 3.8-11.6 [facility] CBC AUTO DIFFon 12-19-2021 BASO # 0.0 103/ul Normal 0.0-0.1 [facility] Comment on above: Performed By: #### H STROPN #### [facility] [address] [address] [address] Debra Blake Basophils/100 WBC (Bld) 0.5 % Normal 0.2-2.0 [facility] Comment on above: Performed By: #### H STROPN #### [facility] [address] [address] [address] Debra Blake EO # 0.1 103/ul Normal 0.0-0.7 [facility] Comment on above: Performed By: #### H STROPN #### [facility] [address] [address] [address] Debra Blake Eosinophils/100 WBC (Bld) 1.4 % Normal 0.9-7.0 [facility] Comment on above: Performed By: #### H STROPN #### [facility] [address] [place] [address] Dr. Debra Blake Erythrocyte distribution width (RBC) [Ratio] 14.1 % Normal 11.0-15.0 [facility] Comment on above: Performed By: #### H STROPN #### [facility] [address] [place] [address] Dr. Debra Blake Hematocrit (Bld) [Volume fraction] 26.2 % Critically low 36.0-48.0 [facility] Comment on above: Performed By: #### H STROPN #### [facility] [address] [address] [address] Debra Blake Hemoglobin (Bld) [Mass/Vol] 9.1 g/dL Critically low 12.0-16.0 [facility] Comment on above: Performed By: #### H STROPN #### [facility] [address] [place] [address] Dr. Debra Blake IG # 0.03 10e3/ul Normal 0.00-0.03 [facility] Comment on above: Performed By: #### H STROPN #### [facility] [address] [place] [address] Dr. Debra Blake IG % 0.4 % Normal 0.0-0.5 [facility] Comment on above: Performed By: #### H STROPN #### [facility] [address] [place] [address] Dr. Debra Blake LYMPH # 1.5 103/ul Normal 1.2-3.8 [facility] Comment on above: Performed By: #### H STROPN #### [facility] [address] [place] [address] Dr. Debra Blake Lymphocytes/100 WBC (Bld) 19.0 % Critically low 20.5-60.0 [facility] Comment on above: Performed By: #### H STROPN #### [facility] [address] [place] [address] Dr. Debra Blake MANUAL DIFF REQ NO Normal [facility] Comment on above: Performed By: #### H STROPN #### [facility] [address] [place] [address] Dr. Debra Blake MCH (RBC) [Entitic mass] 34.3 pg Critically high 26.7-3 4.0 [facility] Comment on above: Performed By: #### H STROPN #### [facility] [address] [place] [address] Dr. Debra Blake MCHC (RBC) [Mass/Vol] 34.7 g/dL Normal 29.9-35.2 [facility] Comment on above: Performed By: #### H STROPN #### [facility] [address] [place] [address] Dr. Debra Blake MCV (RBC) [Entitic vol] 98.9 fL Normal 81.0-99.0 [facility] Comment on above: Performed By: #### H STROPN #### [facility] [address] [address] [address] Debra Blake MONO # 0.8 103/ul Normal 0.3-0.8 [facility] Comment on above: Performed By: #### H STROPN #### [facility] [address] [place] [address] Dr. Debra Blake Monocytes/100 WBC (Bld) 10.0 % Normal 1.7-12.0 [facility] Comment on above: Performed By: #### H STROPN #### [facility] [address] [place] [address] Dr. Debra Blake NEUT # 5.5 103/ul Normal 1.4-6.5 [facility] Comment on above: Performed By: #### H STROPN #### [facility] [address] [place] [address] Dr. Debra Blake Neutrophils/100 WBC (Bld) 68.7 % Normal 43.0-75.0 [facility] Comment on above: Performed By: #### H STROPN #### [facility] [address] [place] [address] Dr. Debra Blake Platelet mean volume (Bld) [Entitic vol] 9.5 fL Normal 9.5-13.5 [facility] Comment on above: Performed By: #### H STROPN #### [facility] [address] [place] [address] Dr. Debra Blake PLT 300 103/ul Normal 150-450 [facility] Comment on above: Performed By: #### H STROPN #### [facility] [address] [place] [address] Dr. Debra Blake RBC 2.65 106/ul Critically low 4.20-5.40 [facility] Comment on above: Performed By: #### H STROPN #### [facility] [address] [place] [address] Dr. Debra Blake WBC 8.1 103/ul Normal 4.0-11.0 [facility] Comment on above: Performed By: #### H STROPN #### [facility] [address] [place] [address] Dr. Debra Blake Covid-19 PCR (CVDTB)on 12-09 SARS-CoV-2 (COVID-19) RNA YVONNE+probe Ql (Unsp spec) Not detected Normal NOT DETECTED [facility] Comment on above: Result Comment: When [...] for this test is supported by the Carpenter'S Assistant of Health and Human Service's declaration that [...] used). Performed By: #### C VDTBH #### [facility] [address] [place] [address] Dr. Debra Blake ER URINE PROFILEon 2 Bilirubin Ql (U) Negative Normal NEGATIVE [facility] Comment on above: Performed By: #### H STROPN #### [facility] [address] [place] [address] Dr. Debra Blake Clarity (U) CLEAR Normal CLEAR [facility] Comment on above: Performed By: #### H STROPN #### [facility] [address] [place] [address] Dr. Debra Blake Color (U) LT. YELLOW Normal YELLOW [facility] Comment on above: Performed By: #### H STROPN #### [facility] [address] [place] [address] Dr. Debra Blake ERUAHD A micrscopic examina tion will be performed if indicated. Normal [facility] Comment on above: Performed By: #### H STROPN #### [facility] [address] [place] [address] Dr. Debra Blake Glucose Ql (U) Negative Normal NEGATIVE [facility] Comment on above: Performed By: #### H STROPN #### [facility] [address] [address] [address] Debra Blake Hemoglobin Ql (U) Negative Normal NEGATIVE [facility] Comment on above: Performed By: #### H STROPN #### [facility] [address] [address] [address] Debra Blake Ketones Ql (U) Negative Normal NEGATIVE [facility] Comment on above: Performed By: #### H STROPN #### [facility] [address] [address] [address] Debra Blake LEUKOCYTES Negative Normal NEGATIVE [facility] Comment on above: Performed By: #### H STROPN #### [facility] [address] [place] [address] Dr. Debra Blake Nitrite Ql (U) Negative Normal NEGATIVE [facility] Comment on above: Performed By: #### H STROPN #### [facility] [address] [place] [address] Dr. Debra Blake pH (U) 7.0 [pH] Normal 5-9 [facility] Comment on above: Performed By: #### H STROPN #### [facility] [address] [place] [address] Dr. Debra Blake SPEC GRAVITY 1.010 Normal 1.005-<=1. 025 [facility] Comment on above: Performed By: #### H STROPN #### [facility] [address] [place] [address] Dr. Debra Blake UA PROTEIN TRACE Normal NEGATIVE/ TRACE [facility] Comment on above: Performed By: #### H STROPN #### [facility] [address] [place] [address] Dr. Debra Blake UR MICRO IND NOT INDICATED Normal [facility] Comment on above: Performed By: #### H STROPN #### [facility] [address] [place] [address] Dr. Debra Blake Urobilinogen Qn (U) 0.2 {Pascale'U}/dL Normal 0.2 - 1. 0 [facility] Comment on above: Performed By: #### H GARY #### [facility] [address] [place] [address] Dr. Debra Blkae ETHANOL (BLD ALC)on 12-20-19 ALC NOTE NOTE: 80 mg/dl is [facility] legal limit for a blood alcohol level Normal [facility] Comment on above: Performed By: #### E TH #### [facility] [address] [place] [address] Dr. Debra Blake Ethanol [Mass/Vol] mg/dL Normal [facility] Comment on above: Performed By: #### E TH #### [facility] [address] [place] [address] Dr. Debra Blake PROF CHEM 8 (BAS METB)on Anion gap [Moles/Vol] 14.8 mmol/L Normal [facility] Comment on above: Performed By: #### Joanna VEGA, CMP #### [facility] [address] [place] [address] Dr. Debra Blake Calcium [Mass/Vol] 7.6 mg/dL Critically low 8.5-10.1 [facility] Comment on above: Performed By: #### Joanna VEGA, CMP #### [facility] [address] [place] [address] Dr. Debra Blake Chloride [Moles/Vol] 93 mmol/L Critically low 98-107 [facility] Comment on above: Performed By: #### H GARY, CMP #### [facility] [address] [place] [address] Dr. Debra Blake CO2 [Moles/Vol] 30.6 mmol/L Normal 21.0-32.0 [facility] Comment on above: Performed By: #### H GARY, CMP #### [facility] [address] [place] [address] Dr. Debra Blake Creatinine [Mass/Vol] 2.27 mg/dL Critically high 0.55-1.02 [facility] Comment on above: Performed By: #### H GARY, CMP #### [facility] [address] [address] [address] Debra Blake EGFR-AF SALVADOREAN 27 mL/min/1.73m2 Critically low >=60 [facility] Comment on above: Performed By: #### H STROPN, CMP #### [facility] [address] [address] [address] Debra Blake EGFR-NON AF SALVADOREAN 22 mL/min/1.73m2 Critically low >=60 [facility] Comment on above: Performed By: #### H STROPN, CMP #### [facility] [address] [address] [address] Debra Blake Glucose [Mass/Vol] 114 mg/dL Critically high 74-106 [facility] Comment on above: Performed By: #### H STROPN, CMP #### [facility] [address] [address] [address] Debra Blake Potassium [Moles/Vol] 3.4 mmol/L Critically low 3.5-5.1 [facility] Comment on above: Performed By: #### H STROPN, CMP #### [facility] [address] [address] [address] Debra Blake Sodium [Moles/Vol] 135 mmol/L Critically low 136-145 [facility] Comment on above: Performed By: #### H STROPN, CMP #### [facility] [address] [address] [address] Debra Blake Urea nitrogen [Mass/Vol] 20.0 mg/dL Critically high 7.0-18 .0 [facility] Comment on above: Performed By: #### H STROPN, CMP #### [facility] [address] [address] [address] Debra Blake Urea nitrogen/Creatinine [Mass ratio] 8.8 mg/mg Normal [facility] Comment on above: Performed By: #### H STROPN, CMP #### [facility] [address] [address] [address] Debra Blake TROPONIN, HIGH SENSITIVITYon 12-19-2021 HSTROP 16.7 pg/mL Normal 4.0-51.3 [facility] Comment on above: Result Comment: CUT- OFF POINTS HAVE BEEN ESTABLISHED BASED ON THE FOURTH UNIVERSAL DEFINITIONS OF MYOCARDIAL INFARCTION. THE UPPER REFERENCE LIMIT (URL) OF TROPONIN, DEFINED THE 99TH PERCENTILE OF cTnI DISTRIBUTION IN A REFERENCE POPULATION, HAS BEEN CONFIRMED THE DECISION THRESHOLD FOR [place] DIAGNOSIS. Performed By: #### H STROPN #### [facility] [address] [address] [address] Debra Blake XR CHEST 1 Von [...] DENISE MESSER Date: 2021-12-19 15:57 Normal [facility] Consultation Noteon 12-16-19 22 Consultation Note [id number]:12 7 Normal [facility] RAD - CT Reporton 12-15-2021 RAD - CT Report [id number]#1.00CD:12 7 Normal [facility] Basophils Auto (Bld) [#/Vol] Ordered By: Hong Jewell on 12-10-2021 Basophils (Bld) [#/Vol] 0.1 10*3/uL 0.0-0.2 [facility] Basophils/100 WBC Auto (Bld) Ordered By: Hong Jewell on 12-10-2021 Basophils/100 WBC (Bld) 0.9 % . [facility] Blood hemoglobin measurement (mass/volume)Ordered By: Hong Jewell on 12-10-2021 Hemoglobin (Bld) [Mass/Vol] 7.5 g/dL 11.8-15.4 [facility] Blood leukocytes automated c ount (number/volume)Ordered By: Hong Jewell on 12-10-2021 WBC (Bld) [#/Vol] 6.3 10*3/uL 4.5-11.0 [facility] Creatinine and Glomerular fi ltration rate.predicted panel (S/P/Bld)Ordered By: Hong Jewell on 12-10-2021 Creatinine [Mass/Vol] 1.84 mg/dL 0.44-1.03 [facility] Eosinophils Auto (Bld) [#/Vo l]Ordered By: Hong Jewell on 12-10-2021 Eosinophils (Bld) [#/Vol] 0.2 10*3/uL 0.0-0.45 [facility] Eosinophils/100 WBC Auto (Bl d)Ordered By: Hong Jewell on 12-10-2021 Eosinophils/100 WBC (Bld) 3.5 % . [facility] Erythrocyte distribution wid th Auto (RBC) [Ratio]Ordered By: Hong Jewell on 12-10-2021 Erythrocyte distribution width (RBC) [Ratio] 16.3 % 11.9-15.3 [facility] Estimated glomerular filtrat ion rate (GFR) non- AmericanOrdered By: Hong Jewell on 12-10-2021 GFR/1.73 sq M.predicted among non-blacks MDRD (S/P/Bld) [Vol rate/Area] 28 mL/Min [facility] Hematocrit Auto (Bld) [Volum e fraction]Ordered By: Hong Jewell on 12-10-2021 Hematocrit (Bld) [Volume fraction] 22.8 % 34.0-46.4 [facility] Laboratory - Chemistry and C hemistry - challengeOrdered By: Hong Jewell on 12-10-2021 Magnesium [Mass/Vol] 0.7 mg/dL 1.6-2.6 [facility] Comment on above: Results called at 0825 on 12/10/21 Laboratory - Hematology and Cell countsOrdered By: Hong Jewell on 12-10-2021 Nucleated RBC/100 WBC (Bld) [Ratio] 0.0 % 0-0.5 [facility] Lymphocytes Auto (Bld) [#/Vo l]Ordered By: Hong Jewell on 12-10-2021 Lymphocytes (Bld) [#/Vol] 1.4 10*3/uL 1.00-4.8 [facility] Lymphocytes/100 WBC Auto (Bl d)Ordered By: Hong Jewell on 12-10-2021 Lymphocytes/100 WBC (Bld) 21.7 % . [facility] MCH Auto (RBC) [Entitic mass ]Ordered By: Hong Jewell on 12-10-2021 MCH (RBC) [Entitic mass] 34.3 pg 24.7-34.3 [facility] MCHC Auto (RBC) [Mass/Vol]Or dered By: Hong Jewell on 12-10-2021 MCHC (RBC) [Mass/Vol] 33.0 g/dL 32.0-35.0 [facility] MCV Auto (RBC) [Entitic vol] Ordered By: Hong Jewell on 12-10-2021 MCV (RBC) [Entitic vol] 103.8 fL 80-100 [facility] Monocytes Auto (Bld) [#/Vol] Ordered By: Hong Jewell on 12-10-2021 Monocytes (Bld) [#/Vol] 0.7 10*3/uL 0.0-0.8 [facility] Monocytes/100 WBC Auto (Bld) Ordered By: Hong Jewell on 12-10-2021 Monocytes/100 WBC (Bld) 11.2 % . [facility] Neutrophils Auto (Bld) [#/Vo l]Ordered By: Hong Jewell on 12-10-2021 Neutrophils (Bld) [#/Vol] 3.9 10*3/uL 1.8-7.7 [facility] Neutrophils/100 WBC Auto (Bl d)Ordered By: Hong Jewell on 12-10-2021 Neutrophils/100 WBC (Bld) 62.7 % . [facility] No Panel InformationOrdered By: Hong Jewell on 12-10-2021 Estimated GFR () 34 mL/Min [facility] Comment on above: GFR estimated refere nce range: According to KDOQI guidelines, <60 ml/min/1.73m2 is sufficient to diagnose a patient with chronic kidney disease. Pharmacy Creatinine Clearance (Chem 36.70 [facility] Platelet mean volume Auto (B ld) [Entitic vol]Ordered By: Hong Jewell on 12-10-2021 Platelet mean volume (Bld) [Entitic vol] 6.7 fL 6.3-10.7 [facility] Platelets Auto (Bld) [#/Vol] Ordered By: Hong Jewell on 12-10-2021 Platelets (Bld) [#/Vol] 356 10*3/uL 150-450 [facility] RBC Auto (Bld) [#/Vol]Ordere d By: Hong Jewell on 12-10-2021 RBC (Bld) [#/Vol] 2.20 10*6/uL 3.60-5.00 [facility] Serum or plasma anion gap de terminationOrdered By: Hong Jewell on 12-10-2021 Anion gap [Moles/Vol] TNP [facility] Comment on above: Test not performed Serum or plasma calcium sigifredo urement (mass/volume)Ordered By: Hong Jewell on 12-10-2021 Calcium [Mass/Vol] 9.0 mg/dL 8.2-10.2 [facility] Serum or plasma chloride matti surement (moles/volume)Ordered By: Hong Jewell on 09-02-2022 Chloride [Moles/Vol] 104 mmol/L 95-114 [facility] Serum or plasma glucose sigifredo urement (mass/volume)Ordered By: Hong Jewell on 12-10-2021 Glucose [Mass/Vol] 137 mg/dL 70-100 [facility] Comment on above: ADA recommended refe rence range Random Glucose Reference Range is dependent on time and content of last meal. Glucose of more than 200 mg/dL in a nonstressed, ambulatory subject supports the diagnosis of Diabetes Mellitus. Serum or plasma potassium me asurement (moles/volume)Ordered By: Hong Jewell on 12-10-2021 Potassium [Moles/Vol] 4.7 mmol/L 3.5-5.1 [facility] Serum or plasma sodium measu rement (moles/volume)Ordered By: Hong Jewell on 12-10-2021 Sodium [Moles/Vol] 131 mmol/L 136-146 [facility] Serum or plasma total carbon dioxide measurement (moles/volume)Ordered By: Hong Jewell on 12-10-2021 CO2 [Moles/Vol] 21.1 mmol/L 22.0-30.0 [facility] Serum or plasma urea nitroge n measurement (mass/volume)Ordered By: Hong Jewell on 12-10-2021 Urea nitrogen [Mass/Vol] 21 mg/dL 9-23 [facility] Serum DNA double strand anti body assay (units/volume)Ordered By: William Esposito on 12-09-2021 DNA double strand Ab Qn (S) [IU]/mL 0-9 [facility] Comment on above: Negative <5 Equivocal 5 - 9 Positive >9 Performed at: - [facility] [id number] [employer] Steward/Stewardess: Sanford Mehta PhD, Phone: [phone] Albumin [Mass/volume] in Ser um or PlasmaOrdered By: William Esposito on 12-07-2021 Albumin [Mass/Vol] 2.6 g/dL 2.9-4.4 [facility] Albumin/Protein.total in 24 hour Urine by ElectrophoresisOrdered By: William Esposito on 12-07-2021 Albumin Elph (24H U) [Mass fraction] 69.2 % . [facility] Creatinine [Mass/volume] in UrineOrdered By: William Esposito on 12-07-2021 Creatinine (U) [Mass/Vol] 153.0 mg/dL [facility] Comment on above: No reference range e stablished Gamma globulin/Protein.total in 24 hour Urine by ElectrophoresisOrdered By: William Esposito on 12-07-2021 Gamma globulin Elph (24H U) [Mass fraction] 8.2 % . [facility] IgA [Mass/volume] in Serum o r PlasmaOrdered By: William Esposito on 12-07-2021 IgA [Mass/Vol] 357 mg/dL 87-352 [facility] IgG [Mass/volume] in Serum o r PlasmaOrdered By: William Esposito on 12-07-2021 IgG [Mass/Vol] 794 mg/dL 586-1602 [facility] IgM [Mass/volume] in Serum o r PlasmaOrdered By: William Esposito on 12-07-2021 IgM [Mass/Vol] 109 mg/dL 26-217 [facility] Comment on above: Performed at: [place] - [facility] [address] [id number] [employer] Steward/Stewardess: Sanford Mehta PhD, Phone: [phone] Immunofixation for UrineOrde red By: William Esposito on 12-07-2021 Interpretation Immunofixation (U) [Interp] Comment: . [facility] Comment on above: Presence of monoclon al protein is unclear at this time. Suggest repeat in 3 to 6 months if clinically indicated. Performed at: [place] - [facility] [address] [id number] [employer] Steward/Stewardess: Sanford Mehta PhD, Phone: [phone] Immunoglobulin light chains. kappa.free [Mass/volume] in SerumOrdered By: William Esposito on 12-07-2021 Immunoglobulin light chains.kappa.free (S) [Mass/Vol] 81.9 mg/L 3.3-19.4 [facility] Immunoglobulin light chains. kappa.free/Immunoglobulin light chains.lambda.free [MassOrdered By: William Vaibhav on 12-07-2021 Immunoglobulin light chains.kappa.free/Immuno globulin light chains.lambda.free (S) [Mass ratio] 1.31 0.26-1.65 [facility] Comment on above: Performed at: [facility] [id number] [employer] Steward/Stewardess: Sanford Mehta PhD, Phone: [phone] Immunoglobulin light chains. lambda.free [Mass/volume] in Serum or PlasmaOrdered By: William Vaibhav on 12-07-2021 Immunoglobulin light chains.lambda.free [Mass/Vol] 62.3 mg/L 5.7-26.3 [facility] No Panel InformationOrdered By: William Vaibhav on 12-07-2021 Urine Random Prot Electrophor Note See comment . [facility] Comment on above: Protein electrophore sis scan will follow via computer, mail, or station cleaning porter delivery. Performed at: [facility] [address] [id number] [employer]ward/Stewardess: Sanford Mehta PhD, Phone: [phone] Protein Electrophoresis M-Alexei Not observed g/dL Not Observed [facility] Protein Electrophoresis Note See comment . [facility] Comment on above: Protein electrophore sis scan will follow via computer, mail, or station cleaning porter delivery. Performed at: [facility] [id number] [employer] Steward/Stewardess: Sanford Mehta PhD, Phone: [phone] Serum Immunofixation See comment . [facility] Comment on above: No monoclonality det ected. Protein [Mass/volume] in Ser um or PlasmaOrdered By: William Vaibhav on 12-07-2021 Protein [Mass/Vol] 5.2 g/dL 6.0-8.5 [facility] Protein [Mass/volume] in Uri neOrdered By: William Vaibhav on 12-07-2021 Protein (U) [Mass/Vol] 51.3 mg/dL Not Estab. [facility] Protein.monoclonal/Protein.t otal in 24 hour Urine by ElectrophoresisOrdered By: William Esposito on 12-07-2021 Protein.monoclonal Elph (24H U) [Mass fraction] Not observed % Not Observed [facility] Serum globulin measurement ( mass/volume)Ordered By: William Esposito on 12-07-2021 Globulin (S) [Mass/Vol] 2.6 g/dL 2.2-3.9 [facility] Serum or plasma albumin/glob ulin mass ratioOrdered By: William Esposito on 12-07-2021 Albumin/Globulin [Mass ratio] 1.0 {ratio} 0.7-1.7 [facility] Serum or plasma alpha 1 glob ulin measurement by electrophoresis (mass/volume)Ordered By: William Esposito on 12-07-2021 Alpha 1 globulin Elph [Mass/Vol] 0.3 g/dL 0.0-0.4 [facility] Serum or plasma alpha 2 glob ulin measurement by electrophoresis (mass/volume)Ordered By: William Esposito on 12-07-2021 Alpha 2 globulin Elph [Mass/Vol] 0.7 g/dL 0.4-1.0 [facility] Serum or plasma beta globuli n measurement by electrophoresis (mass/volume)Ordered By: William Esposito on 12-07-2021 Beta globulin Elph [Mass/Vol] 0.7 g/dL 0.7-1.3 [facility] Serum or plasma gamma globul in measurement by electrophoresis (mass/volume)Ordered By: William Esposito on 12-07-2021 Gamma globulin Elph [Mass/Vol] 0.9 g/dL 0.4-1.8 [facility] Troponin I.cardiac [Mass/vol ume] in Serum or Plasma by High sensitivity methodOrdered By: Hong Jewell on 12-07-2021 Troponin I.cardiac High sensitivity method [Mass/Vol] 7 pg/mL 0-15 [facility] Urine alpha 1 globulin/total protein by electrophoresisOrdered By: William Esposito on 12-07-2021 Alpha 1 globulin Elph (U) [Mass fraction] 3.1 % . [facility] Urine alpha 2 globulin/total protein ratio by electrophoresisOrdered By: William Esposito on 12-07-2021 Alpha 2 globulin Elph (U) [Mass fraction] 6.0 % . [facility] Urine beta globulin measurem ent by electrophoresis (mass/volume)Ordered By: William Esposito on 12-07-2021 Beta globulin Elph (U) [Mass/Vol] 13.5 % . [facility] Urine culture routineOrdered By: Hong Jewell on 12-07-2021 Bacteria identified Cx Nom (U) Klebsiella oxytoca [facility] Urine protein/creatinine rat ioOrdered By: William Esposito on 12-07-2021 Protein/Creatinine (U) [Ratio] 359 mg/g{Cre} 0-200 [facility] Albumin [Mass/volume] in Ser um or PlasmaOrdered By: William Esposito on 12-06-2021 Albumin [Mass/Vol] 3.0 g/dL 3.2-5.5 [facility] CULTURE URINEon 12-06-2021 CULTURE URINE Isolate [...] <=0.12 S F Nitrofurantoin <=16 S F Trimethoprim/Sulfamethoxa zole <=20 S F Normal [facility] Comment on above: Performed By: #### [facility] #### [facility] [address] [place] [address] Dr. Debra Blkae Glucose Glucometer (BldC) [M ass/Vol]Ordered By: Hong Jewell on 12-06-2021 Glucose [Mass/Vol] 145 mg/dL [facility] Comment on above: Random Glucose Refer ence Range is dependent on time and content of last meal. Glucose of more than 200 mg/dL in a nonstressed, ambulatory subject supports the diagnosis of Diabetes Mellitus. No Panel InformationOrdered By: Hong Jewell on 12-06-2021 Anti-Nuclear Antibody Comment 2 See comment . [facility] Comment on above: For more information about Hep-2 cell patterns use [employer], the official website for the International Consensus on Antinuclear Antibody (MATY) Patterns (ICAP). A positive MATY result may occur in healthy individuals (low titer) or be associated with a variety of diseases. See interpretation chart which is not all inclusive: Pattern Antigen Detected Suggested Disease Association Homogeneous DNA(ds,ss), SLE - High titers Nucleosomes, Histones Drug-induced SLE Speckled Sm, SATELLITE TECHNICIAN, SCL-70, SLE,MCTD,PSS (diffuse form), SS-A/SS-B Sjogrens Nucleolar SCL-70, PM-1/SCL High titers Scleroderma, PM/DM Centromere Centromere PSS (limited form) w/Crest syndrome variable Nuclear Dot Sp100,[id number] Primary Biliary Cirrhosis Nuclear GP210, Primary Biliary Cirrhosis Membrane chun A,B,C Performed at: - [facility] [id number] [employer] Steward/Stewardess: Sanford Mehta PhD, Phone: [phone] OSMOLALITY URINEon 2 Osmolality, Urine 180 mOsmol/kg Normal [facility] Comment on above: Result Comment: 24 h r : 300 - 900 Random: 50 - 1400 After 12hr fluid restriction: >850 Performed By: #### H STROPN #### [facility] [address] [address] [address] Debra Blake Serum nuclear antibody titer Ordered By: Hong Jewell on 12-06-2021 Nuclear Ab (S) [Titer] Positive . [facility] Comment on above: Negative <1:80 Borderline 1:80 Positive >1:80 Serum or plasma cyclic adeno sine monophosphate measurement (moles/volume)Ordered By: Hong Jewell on 12-06-2021 Adenosine monophosphate.cyclic [Moles/Vol] 10 units 0-19 [facility] Comment on above: Negative <20 Weak positive 20 - 39 Moderate positive 40 - 59 Strong positive >59 Performed at: - [facility] [id number] [employer]ward/Stewardess: Meli Bishop MD, Phone: [phone] Serum or plasma ethanol sigifredo urement (mass/volume)Ordered By: Rehan Russ on 12-06-2021 Ethanol [Mass/Vol] mg/dL [facility] Ethanol [Mass/Vol] TNP [facility] Comment on above: Test not performed Serum speckled pattern antin uclear antibody (MATY) titerOrdered By: Hong Jewell on 12-06-2021 Speckled nuclear Ab pattern (S) [Titer] 1:80 . [facility] Comment on above: ICAP nomenclature: A C-2,4,5,29 Amphetamine Screen Ql (U)Ord ered By: Hong Jewell on 12-05-2021 Amphetamines Ql (U) Negative Negative [facility] Automated erythrocytes count in urine sediment (number/area)Ordered By: Hong Jewell on 12-05-2021 RBC Auto (Urine sed) [#/Area] 1-2 [HPF] 0-4 [facility] Automated leukocytes count i n urine sediment (number/area)Ordered By: Hong Jewell on 12-05-2021 WBC Auto (Urine sed) [#/Area] Innumerable [HPF] 0-4 [facility] Barbiturates [Presence] in U rineOrdered By: Hong Jewell on 12-05-2021 Barbiturates Ql (U) Negative Negative [facility] Benzodiazepines [Presence] i n UrineOrdered By: Hong Jewell on 12-05-2021 Benzodiazepines Ql (U) Positive Negative [facility] Bilirubin Test strip Ql (U)O rdered By: Hong Jewell on 12-05-2021 Bilirubin Ql (U) Negative Negative [facility] CT biopsyOrdered By: Patricia Jewell on 12-05-2021 Transferrin [Mass/Vol] 175 mg/dL 180-380 [facility] Cannabinoids [Presence] in U rine by Screen methodOrdered By: Hong Jewell on 12-05-2021 Cannabinoids Screen Ql (U) Negative Negative [facility] Comment on above: These are unconfirme d results and should not be used for legal purposes. Drug Cut-Off Concentration: AMPH 1000 ng/mL GAYLE 200 ng/mL ISAEL 200 ng/mL COCM 300 ng/mL OP 300 ng/mL PCP 25 ng/mL THC 20 ng/mL Color Auto (U)Ordered By: Nikos Jewell on 12-05-2021 Color (U) Yellow Yellow [facility] Ferritin [Mass/volume] in Se rum or PlasmaOrdered By: Hong Jewell on 12-05-2021 Ferritin [Mass/Vol] 80.8 ng/mL 11-306.8 [facility] Iron [Mass/volume] in Serum or PlasmaOrdered By: Hong Jewell on 12-05-2021 Iron [Mass/Vol] 22 ug/dL 40-150 [facility] Iron binding capacity [Mass/ volume] in Serum or PlasmaOrdered By: Hong Jewell on 12-05-2021 Iron binding capacity [Mass/Vol] 245 ug/dL 255-450 [facility] Ketones Auto test strip (U) [Mass/Vol]Ordered By: Hong Jewell on 12-05-2021 Ketones (U) [Mass/Vol] Negative Negative [facility] - Drug toxicology Ordered By: Hong Jewell on 12-05-2021 Opiates Ql (U) Negative Negative [facility] - UrinalysisOrder ed By: Hong Jewell on 12-05-2021 Hyaline casts LM Ql (Urine sed) 0-8 [LPF] 0-8 [facility] Lactate dehydrogenase measur ement (enzymatic activity/volume)Ordered By: Hong Jewell on 12-05-2021 LDH (Unsp spec) [Catalytic activity/Vol] 135 U/L 45-190 [facility] Nitrite Test strip Ql (U)Ord ered By: Hong Jewell on 12-05-2021 Nitrite Ql (U) Negative Negative [facility] No Panel InformationOrdered By: Hong Jewell on 12-05-2021 25-Hydroxy Vitamin D Total 21.8 ng/mL 30-100 [facility] Comment on above: VITAMIN D STATUS 25( [place])VITAMIN D RANGE (ng/mL) Deficient <20 Insufficient 20 to <30 Sufficient 30 to 100 Reference: Maggie MF,Jose VALENZUELA, Gilberto VARGAS, et al. Evaluation,treatment, and prevention of vitamin D deficiency; an Endocrine Society clinical practice guideline. JCEM. 2010; 96(7):1911-30. Vitamin C level <0.1 mg/dL 0.4-2.0 [facility] Comment on above: This test was develo ped and its performance characteristics determined by [facility]. It has not been cleared or approved by the Food and Drug Administration. Vitamin C deficiency is generally defined as plasma or serum concentrations less than 0.2 mg/dL and levels between 0.2 and 0.4 mg/dL are considered low. Performed at: - [facility] [id number] [employer]/Stewardess: Meli Bishop MD, Phone: [phone] Phencyclidine Screen Ql (U)O rdered By: Hong Jewell on 12-05-2021 Phencyclidine Ql (U) Negative Negative [facility] Protein Auto test strip (U) [Mass/Vol]Ordered By: Hong Jewell on 12-05-2021 Protein (U) [Mass/Vol] 30 mg/dL Negative [facility] Serum or plasma thyroxine (T 4) measurement (mass/volume)Ordered By: Hong Jewell on 12-05-2021 T4 [Mass/Vol] 7.19 ug/dL 5.39-11.82 [facility] Specific gravity Auto test s trip (U) [Rel density]Ordered By: Hong Jewell on 12-05-2021 Specific gravity (U) [Rel density] 1.013 1.001-1.03 0 [facility] Squamous epithelial cells de tection in urine sediment by light microscopyOrdered By: Hong Jewell on 12-05-2021 Epithelial cells.squamous LM Ql (Urine sed) 5-9 [HPF] 0-2 [facility] Thyroxine (T4) free [Mass/vo lume] in Serum or PlasmaOrdered By: Hong Jewell on 12-05-2021 Free T4 [Mass/Vol] 1.00 ng/dL 0.61-1.12 [facility] Urine bacteria detection by automated methodOrdered By: Hong Jewell on 12-05-2021 Bacteria Auto Ql (U) 4+ None Seen [facility] Urine clarity by refractomet ry automatedOrdered By: Hong Jewell on 12-05-2021 Clarity Refractometry automated (U) Cloudy Clear [facility] Urine cocaine detectionOrder ed By: Hong Jewell on 12-05-2021 Cocaine Ql (U) Negative Negative [facility] Urine glucose measurement by automated test strip (mass/volume)Ordered By: Hong Jewell on 12-05-2021 Glucose Auto test strip (U) [Mass/Vol] Normal mg/dL Normal [facility] Urine hemoglobin detection b y automated test stripOrdered By: Hong Jewell on 12-05-2021 Hemoglobin Auto test strip Ql (U) Negative Negative [facility] Urine leukocyte esterase det ection by automated test stripOrdered By: Hong Jewell on 12-05-2021 Leukocyte esterase Auto test strip Ql (U) 4+ Negative [facility] Urobilinogen Auto test strip (U) [Mass/Vol]Ordered By: Hong Jewell on 12-05-2021 Urobilinogen (U) [Mass/Vol] Normal mg/dL Normal [facility] pH Auto test strip (U)Ordere d By: Hong Jewell on 12-05-2021 pH (U) 5.5 [pH] 5.0-9.0 [facility] Activated partial thrombopla stin time (aPTT) in platelet poor plasma by coagulation aOrdered By: Hong Jewell on 12-04-2021 aPTT Coag (PPP) [Time] 29.9 s 25.1-36.5 [facility] CBC AUTO DIFFon 12-04-2021 BASO # 0.0 103/ul Normal 0.0-0.1 [facility] Comment on above: Performed By: #### H STROPN, CMP #### [facility] [address] [place] [address] Dr. Debra Blake Basophils/100 WBC (Bld) 0.4 % Normal 0.2-2.0 [facility] Comment on above: Performed By: #### H STROPN, CMP #### [facility] [address] [place] [address] Dr. Debra Blake EO # 0.1 103/ul Normal 0.0-0.7 [facility] Comment on above: Performed By: #### H STROPN, CMP #### [facility] [address] [place] [address] Dr. Debra Blake Eosinophils/100 WBC (Bld) 1.3 % Normal 0.9-7.0 [facility] Comment on above: Performed By: #### H STROPN, CMP #### [facility] [address] [place] [address] Dr. Debra Blake Erythrocyte distribution width (RBC) [Ratio] 14.6 % Normal 11.0-15.0 [facility] Comment on above: Performed By: #### H STROPN, CMP #### [facility] [address] [place] [address] Dr. Debra Blake Hematocrit (Bld) [Volume fraction] 24.6 % Critically low 36.0-48.0 [facility] Comment on above: Performed By: #### H STROPN, CMP #### [facility] [address] [place] [address] Dr. Debra Blake Hemoglobin (Bld) [Mass/Vol] 8.6 g/dL Critically low 12.0-16.0 [facility] Comment on above: Performed By: #### H STROPN, CMP #### [facility] [address] [place] [address] Dr. Debra Blake IG # 0.04 10e3/ul Critically high 0.00-0.03 [facility] Comment on above: Performed By: #### H STROPN, CMP #### [facility] [address] [address] [address] Debra Blake IG % 0.6 % Critically high 0.0-0.5 [facility] Comment on above: Performed By: #### H GARY, CMP #### [facility] [address] [place] [address] Dr. Debra Blake LYMPH # 1.3 103/ul Normal 1.2-3.8 [facility] Comment on above: Performed By: #### H KINGSTONPN, CMP #### [facility] [address] [place] [address] Dr. Debra Blake Lymphocytes/100 WBC (Bld) 19.7 % Critically low 20.5-60.0 [facility] Comment on above: Performed By: #### H GARY, CMP #### [facility] [address] [place] [address] Dr. Debra Blake MANUAL DIFF REQ NO Normal [facility] Comment on above: Performed By: #### H GARY, CMP #### [facility] [address] [place] [address] Dr. Debra Blake MCH (RBC) [Entitic mass] 34.3 pg Critically high 26.7-3 4.0 [facility] Comment on above: Performed By: #### H GARY, CMP #### [facility] [address] [place] [address] Dr. Debra Blake MCHC (RBC) [Mass/Vol] 35.0 g/dL Normal 29.9-35.2 [facility] Comment on above: Performed By: #### H KINGSTONPN, CMP #### [facility] [address] [place] [address] Dr. Debra Blake MCV (RBC) [Entitic vol] 98.0 fL Normal 81.0-99.0 [facility] Comment on above: Performed By: #### H KINGSTONPN, CMP #### [facility] [address] [place] [address] Dr. Debra Blake MONO # 0.9 103/ul Critically high 0.3-0.8 [facility] Comment on above: Performed By: #### H GARY, CMP #### [facility] [address] [address] [address] Debra Blake Monocytes/100 WBC (Bld) 12.7 % Critically high 1.7-12. 0 [facility] Comment on above: Performed By: #### H STROPN, CMP #### [facility] [address] [place] [address] Dr. Debra Blake NEUT # 4.4 103/ul Normal 1.4-6.5 [facility] Comment on above: Performed By: #### H STROPN, CMP #### [facility] [address] [place] [address] Dr. Debra Blake Neutrophils/100 WBC (Bld) 65.3 % Normal 43.0-75.0 [facility] Comment on above: Performed By: #### H STROPN, CMP #### [facility] [address] [place] [address] Dr. Debra Blake Platelet mean volume (Bld) [Entitic vol] 9.0 fL Critically low 9.5-13.5 [facility] Comment on above: Performed By: #### H STROPN, CMP #### [facility] [address] [place] [address] Dr. Debra Blake PLT 142 103/ul Critically low 150-450 [facility] Comment on above: Performed By: #### H STROPN, CMP #### [facility] [address] [place] [address] Dr. Debra Blake RBC 2.51 106/ul Critically low 4.20-5.40 [facility] Comment on above: Performed By: #### H STROPN, CMP #### [facility] [address] [place] [address] Dr. Debra Blake WBC 6.8 103/ul Normal 4.0-11.0 [facility] Comment on above: Performed By: #### H STROPN, CMP #### [facility] [address] [place] [address] Dr. Debra Blake BASO # 0.0 103/ul Normal 0.0-0.1 [facility] Comment on above: Performed By: #### C BC #### [facility] [address] [address] [address] Debra Blake Basophils/100 WBC (Bld) 0.5 % Normal 0.2-2.0 [facility] Comment on above: Performed By: #### C BC #### [facility] [address] [address] [address] Debra Blake EO # 0.1 103/ul Normal 0.0-0.7 [facility] Comment on above: Performed By: #### C BC #### [facility] [address] [address] [address] Debra Blake Eosinophils/100 WBC (Bld) 0.9 % Normal 0.9-7.0 [facility] Comment on above: Performed By: #### C BC #### [facility] [address] [place] [address] Dr. Debra Blake Erythrocyte distribution width (RBC) [Ratio] 14.6 % Normal 11.0-15.0 [facility] Comment on above: Performed By: #### C BC #### [facility] [address] [place] [address] Dr. Debra Blake Hematocrit (Bld) [Volume fraction] 26.2 % Critically low 36.0-48.0 [facility] Comment on above: Performed By: #### C BC #### [facility] [address] [place] [address] Dr. Debra Blake Hemoglobin (Bld) [Mass/Vol] 9.2 g/dL Critically low 12.0-16.0 [facility] Comment on above: Performed By: #### C BC #### [facility] [address] [address] [address] Debra Blake IG # 0.06 10e3/ul Critically high 0.00-0.03 [facility] Comment on above: Performed By: #### C BC #### [facility] [address] [address] [address] Debra Blake IG % 0.7 % Critically high 0.0-0.5 [facility] Comment on above: Performed By: #### C BC #### [facility] [address] [address] [address] Debra Blake LYMPH # 1.3 103/ul Normal 1.2-3.8 [facility] Comment on above: Performed By: #### C BC #### [facility] [address] [place] [address] Dr. Debra Blake Lymphocytes/100 WBC (Bld) 15.7 % Critically low 20.5-60.0 [facility] Comment on above: Performed By: #### C BC #### [facility] [address] [place] [address] Dr. Debra Blake MANUAL DIFF REQ NO Normal [facility] Comment on above: Performed By: #### C BC #### [facility] [address] [place] [address] Dr. Debra Blake MCH (RBC) [Entitic mass] 34.2 pg Critically high 26.7-3 4.0 [facility] Comment on above: Performed By: #### C BC #### [facility] [address] [place] [address] Dr. Debra Blake MCHC (RBC) [Mass/Vol] 35.1 g/dL Normal 29.9-35.2 [facility] Comment on above: Performed By: #### C BC #### [facility] [address] [place] [address] Dr. Debra Blake MCV (RBC) [Entitic vol] 97.4 fL Normal 81.0-99.0 [facility] Comment on above: Performed By: #### C BC #### [facility] [address] [place] [address] Dr. Debra Blake MONO # 1.1 103/ul Critically high 0.3-0.8 [facility] Comment on above: Performed By: #### C BC #### [facility] [address] [place] [address] Dr. Debra Blake Monocytes/100 WBC (Bld) 13.3 % Critically high 1.7-12. 0 [facility] Comment on above: Performed By: #### C BC #### [facility] [address] [place] [address] Dr. Debra Blake NEUT # 5.6 103/ul Normal 1.4-6.5 [facility] Comment on above: Performed By: #### C BC #### [facility] [address] [address] [address] Debra Blake Neutrophils/100 WBC (Bld) 68.9 % Normal 43.0-75.0 [facility] Comment on above: Performed By: #### C BC #### [facility] [address] [place] [address] Dr. Debra Blake Platelet mean volume (Bld) [Entitic vol] 9.2 fL Critically low 9.5-13.5 [facility] Comment on above: Performed By: #### C BC #### [facility] [address] [place] [address] Dr. Debra Blake PLT 179 103/ul Normal 150-450 [facility] Comment on above: Performed By: #### C BC #### [facility] [address] [place] [address] Dr. Debra Blake RBC 2.69 106/ul Critically low 4.20-5.40 [facility] Comment on above: Performed By: #### C BC #### [facility] [address] [place] [address] Dr. Debra Blake WBC 8.1 103/ul Normal 4.0-11.0 [facility] Comment on above: Performed By: #### C BC #### [facility] [address] [place] [address] Dr. Debra Blake Creatine kinase [Enzymatic a ctivity/volume] in Serum or PlasmaOrdered By: Hong Jewell on 12-04-2021 CK [Catalytic activity/Vol] 140 U/L 22-269 [facility] Direct bilirubin measurement Ordered By: Hong Jewell on 12-04-2021 Bilirubin.direct [Mass/Vol] 0.2 mg/dL 0.0-0.4 [facility] Folate [Mass/volume] in Seru m or PlasmaOrdered By: Hong Jewell on 12-04-2021 Folate [Mass/Vol] 5.1 ng/mL >5.9 [facility] Comment on above: Folate reference ran ge: >5.9 ng/ml The WHO technical consultation on folate and vitamin b12 deficiencies has determined that folate concentrations less than 4 ng/ml are considered deficient. Globulin Calc (S) [Mass/Vol] Ordered By: Hong Jewell on 12-04-2021 Globulin (S) [Mass/Vol] 3.2 g/dL F [facility] Glucose mean value [Mass/vol ume] in Blood Estimated from glycated hemoglobinOrdered By: Hong Jewell on 12-04-2021 Average glucose Estimated from glycated hemoglobin (Bld) [Mass/Vol] 97 mg/dL [facility] Hemoglobin A1c percentageOrd ered By: Hong Jewell on 12-04-2021 HbA1c (Bld) [Mass fraction] 5.0 % 4.3-5.6 [facility] Comment on above: Increased risk for d iabetes: 5.7 - 6.4 diabetes: >6.4 glycemic control for adults with diabetes: <7.0 Laboratory - Chemistry and C hemistry - challengeOrdered By: Hong Jewell on 12-04-2021 Cobalamin (Vitamin B12) [Mass/Vol] 520 pg/mL 180-914 [facility] Laboratory - CoagulationOrde red By: Hong Jewell on 12-04-2021 PT Coag (PPP) [Time] 12.2 s 9.0-12.9 [facility] MAGNESIUMon 12-04-2021 Magnesium [Mass/Vol] 1.1 mg/dL Critically low 1.8-2.4 [facility] Comment on above: Performed By: #### H GARY #### [facility] [address] [address] [address] Debra Blake Magnesium [Mass/Vol] 0.6 mg/dL Critically low 1.8-2.4 [facility] Comment on above: Performed By: #### H GARY, CMP #### [facility] [address] [address] [address] Debra Blake PROF 14(COMP METB)on 022 Albumin [Mass/Vol] 2.7 g/dL Critically low 3.4-5.0 [facility] Comment on above: Performed By: #### H STROPN #### [facility] [address] [place] [address] Dr. Debra Blake Albumin/Globulin [Mass ratio] 0.8 {ratio} Normal [facility] Comment on above: Performed By: #### H STROPN #### [facility] [address] [place] [address] Dr. Debra Blake ALP [Catalytic activity/Vol] 57 U/L Normal 46-116 [facility] Comment on above: Performed By: #### H STROPN #### [facility] [address] [place] [address] Dr. Debra Blake ALT [Catalytic activity/Vol] 7 U/L Critically low 14-59 [facility] Comment on above: Performed By: #### H STROPN #### [facility] [address] [place] [address] Dr. Debra Blake Anion gap [Moles/Vol] 17.3 mmol/L Normal [facility] Comment on above: Performed By: #### H STROPN #### [facility] [address] [place] [address] Dr. Debra Blake AST [Catalytic activity/Vol] 14 U/L Critically low 15-37 [facility] Comment on above: Performed By: #### H STROPN #### [facility] [address] [place] [address] Dr. Debra Blake Bilirubin [Mass/Vol] 0.6 mg/dL Normal 0.2-1.0 [facility] Comment on above: Performed By: #### H STROPN #### [facility] [address] [place] [address] Dr. Debra Blake Calcium [Mass/Vol] 5.8 mg/dL Critically low 8.5-10.1 [facility] Comment on above: Result Comment: Test Repeated. Critical Value Verified Performed By: #### H STROPN #### [facility] [address] [address] [address] Debra Blake Chloride [Moles/Vol] 94 mmol/L Critically low 98-107 [facility] Comment on above: Performed By: #### H STROPN #### [facility] [address] [address] [address] Debra Blake CO2 [Moles/Vol] 17.7 mmol/L Critically low 21.0-32.0 [facility] Comment on above: Performed By: #### H STROPN #### [facility] [address] [address] [address] Debra Blake Creatinine [Mass/Vol] 2.48 mg/dL Critically high 0.55-1.02 [facility] Comment on above: Performed By: #### H STROPN #### [facility] [address] [address] [address] Debra Blake EGFR-AF SALVADOREAN 24 mL/min/1.73m2 Critically low >=60 [facility] Comment on above: Performed By: #### H STROPN #### [facility] [address] [address] [address] Debra Blake EGFR-NON AF SALVADOREAN 20 mL/min/1.73m2 Critically low >=60 [facility] Comment on above: Performed By: #### H STROPN #### [facility] [address] [address] [address] Debra Blake Globulin (S) [Mass/Vol] 3.2 g/dL Normal [facility] Comment on above: Performed By: #### H STROPN #### [facility] [address] [address] [address] Debra Blake Glucose [Mass/Vol] 108 mg/dL Critically high 74-106 [facility] Comment on above: Performed By: #### H STROPN #### [facility] [address] [address] [address] Debra Blake Potassium [Moles/Vol] 3.0 mmol/L Critically low 3.5-5.1 [facility] Comment on above: Performed By: #### H STROPN #### [facility] [address] [address] [address] Debra Blake Protein [Mass/Vol] 5.9 g/dL Critically low 6.4-8.2 [facility] Comment on above: Performed By: #### H STROPN #### [facility] [address] [address] [address] Debra Blake Sodium [Moles/Vol] 126 mmol/L Critically low 136-145 [facility] Comment on above: Performed By: #### H STROPN #### [facility] [address] [address] [address] Debra Blake Urea nitrogen [Mass/Vol] 29.0 mg/dL Critically high 7.0-18 .0 [facility] Comment on above: Performed By: #### H STROPN #### [facility] [address] [address] [address] Debra Blake Urea nitrogen/Creatinine [Mass ratio] 11.7 mg/mg Normal [facility] Comment on above: Performed By: #### H STROPN #### [facility] [address] [address] [address] Debra Blake Albumin [Mass/Vol] 3.1 g/dL Critically low 3.4-5.0 [facility] Comment on above: Performed By: #### H STROPN, CMP #### [facility] [address] [address] [address] Debra Blake Albumin/Globulin [Mass ratio] 0.8 {ratio} Normal [facility] Comment on above: Performed By: #### H STROPN, CMP #### [facility] [address] [address] [address] Debra Blake ALP [Catalytic activity/Vol] 65 U/L Normal 46-116 [facility] Comment on above: Performed By: #### H STROPN, CMP #### [facility] [address] [address] [address] Debra Blake ALT [Catalytic activity/Vol] 9 U/L Critically low 14-59 [facility] Comment on above: Performed By: #### H STROPN, CMP #### [facility] [address] [address] [address] Debra Blake Anion gap [Moles/Vol] 17.3 mmol/L Normal [facility] Comment on above: Performed By: #### H STROPN, CMP #### [facility] [address] [address] [address] Debra Blake AST [Catalytic activity/Vol] 17 U/L Normal 15-37 [facility] Comment on above: Performed By: #### H STROPN, CMP #### [facility] [address] [address] [address] Debra Blake Bilirubin [Mass/Vol] 0.8 mg/dL Normal 0.2-1.0 [facility] Comment on above: Performed By: #### H STROPN, CMP #### [facility] [address] [address] [address] Debra Blake Calcium [Mass/Vol] 5.8 mg/dL Critically low 8.5-10.1 [facility] Comment on above: Result Comment: Test Repeated. Critical Value Verified Performed By: #### H STROPN, CMP #### [facility] [address] [place] [address] Dr. Debra Blake Chloride [Moles/Vol] 91 mmol/L Critically low 98-107 [facility] Comment on above: Performed By: #### H STROPN, CMP #### [facility] [address] [address] [address] Debra Blake CO2 [Moles/Vol] 19.6 mmol/L Critically low 21.0-32.0 [facility] Comment on above: Performed By: #### H STROPN, CMP #### [facility] [address] [place] [address] Dr. Debra Blake Creatinine [Mass/Vol] 2.66 mg/dL Critically high 0.55-1.02 [facility] Comment on above: Performed By: #### H STROPN, CMP #### [facility] [address] [place] [address] Dr. Debra Blake EGFR-AF SALVADOREAN 22 mL/min/1.73m2 Critically low >=60 [facility] Comment on above: Performed By: #### H GARY, CMP #### [facility] [address] [address] [address] Debra Blake EGFR-NON AF SALVADOREAN 18 mL/min/1.73m2 Critically low >=60 [facility] Comment on above: Performed By: #### H GARY, CMP #### [facility] [address] [address] [address] Debra Blake Globulin (S) [Mass/Vol] 3.7 g/dL Normal [facility] Comment on above: Performed By: #### H GARY, CMP #### [facility] [address] [place] [address] Dr. Debra Blake Glucose [Mass/Vol] 106 mg/dL Normal 74-106 [facility] Comment on above: Performed By: #### H GARY, CMP #### [facility] [address] [place] [address] Dr. Debra Blake Potassium [Moles/Vol] 2.8 mmol/L Critically low 3.5-5.1 [facility] Comment on above: Result Comment: Test Repeated. Critical Value Verified Performed By: #### H GARY, CMP #### [facility] [address] [place] [address] Dr. Debra Blake Protein [Mass/Vol] 6.8 g/dL Normal 6.4-8.2 [facility] Comment on above: Performed By: #### H GARY, CMP #### [facility] [address] [address] [address] Debra Blake Sodium [Moles/Vol] 123 mmol/L Critically low 136-145 [facility] Comment on above: Result Comment: Test Repeated. Critical Value Verified Performed By: #### H GARY, CMP #### [facility] [address] [place] [address] Dr. Debra Blake Urea nitrogen [Mass/Vol] 29.0 mg/dL Critically high 7.0-18 .0 [facility] Comment on above: Performed By: #### H GARY, CMP #### [facility] [address] [address] [address] Debra Blake Urea nitrogen/Creatinine [Mass ratio] 10.9 mg/mg Normal [facility] Comment on above: Performed By: #### H GARY, CMP #### [facility] [address] [address] [address] Debra Blake Phosphate [Mass/volume] in S lydia or PlasmaOrdered By: Hong Jewell on 12-04-2021 Phosphate [Mass/Vol] 3.6 mg/dL 2.5-4.6 [facility] Platelet poor plasma interna tional normalized ratio (INR) by coagulation assay (relatOrdered By: Hong Jewell on 12-04-2021 INR Coag (PPP) [Relative time] 1.1 {INR} [facility] Comment on above: INR Therapeutic Rang e [...] on 12-04-2021 Protein [Mass/Vol] 6.2 g/dL 6.1-7.9 [facility] Serum ionized calcium measur ement using ion specific electrode (mass/volume)Ordered By: Hong Jewell on 12-04-2021 Calcium.ionized ISE [Mass/Vol] 3.5 mg/dL 4.5-5.6 [facility] Comment on above: Performed at: [address] [id number] [employer]/Stewardess: Sanford Mehta PhD, Phone: [phone] Serum or plasma alanine orellana otransferase measurement without P-5'-P (enzymatic activiOrdered By: Hong Jewell on 12-04-2021 ALT No additional P-5'-P [Catalytic activity/Vol] 8 U/L 10-60 [facility] Serum or plasma albumin/glob ulin mass ratioOrdered By: Hong Jewell on 12-04-2021 Albumin/Globulin [Mass ratio] 0.9 {ratio} [facility] Serum or plasma alkaline lauren sphatase measurement (enzymatic activity/volume)Ordered By: Hong Jewell on 12-04-2021 ALP [Catalytic activity/Vol] 51 U/L 32-92 [facility] Serum or plasma aspartate am inotransferase measurement (enzymatic activity/volume)Ordered By: Hong Jewell on 12-04-2021 AST [Catalytic activity/Vol] 15 U/L 10-42 [facility] Serum or plasma creatine kin ase MB (CKMB)/total creatine kinase (CK) ratio by calculaOrdered By: Hong Jewell on 12-04-2021 CK.MB Calc [Catalytic fraction] 1.4 % 0.00-2.50 [facility] Serum or plasma creatine kin ase MB measurement (mass/volume)Ordered By: Hong Jewell on 12-04-2021 CK.MB [Mass/Vol] 2.0 ng/mL 0.6-6.3 [facility] Serum or plasma non-glucuron idated bilirubin measurement (mass/volume)Ordered By: Hong Jewell on 12-04-2021 Bilirubin.indirect [Mass/Vol] 0.6 mg/dL [facility] Serum or plasma prealbumin m easurement (mass/volume)Ordered By: Hong Jewell on 12-04-2021 Prealbumin [Mass/Vol] 15.8 mg/dL 18.0-38.0 [facility] Serum or plasma total biliru bin measurement (mass/volume)Ordered By: Hong Jewell on 12-04-2021 Bilirubin [Mass/Vol] 0.8 mg/dL 0.3-1.2 [facility] TROPONIN, HIGH SENSITIVITYon 12-04-2021 HSTROP 91.0 pg/mL Critically high 4.0-51.3 [facility] Comment on above: Result Comment: CUT- OFF POINTS HAVE BEEN ESTABLISHED BASED ON THE FOURTH UNIVERSAL DEFINITIONS OF MYOCARDIAL INFARCTION. THE UPPER REFERENCE LIMIT (URL) OF TROPONIN, DEFINED THE 99TH PERCENTILE OF cTnI DISTRIBUTION IN A REFERENCE POPULATION, HAS BEEN CONFIRMED THE DECISION THRESHOLD FOR [place] DIAGNOSIS. Performed By: #### H GARY, CMP #### [facility] [address] [address] [address] Debra Blake HSTROP 107.8 pg/mL Critically high 4.0-51.3 [facility] Comment on above: Result Comment: CUT- OFF POINTS HAVE BEEN ESTABLISHED BASED ON THE FOURTH UNIVERSAL DEFINITIONS OF MYOCARDIAL INFARCTION. THE UPPER REFERENCE LIMIT (URL) OF TROPONIN, DEFINED THE 99TH PERCENTILE OF cTnI DISTRIBUTION IN A REFERENCE POPULATION, HAS BEEN CONFIRMED THE DECISION THRESHOLD FOR [place] DIAGNOSIS. Performed By: #### H GARY #### [facility] [address] [place] [address] Dr. Debra Blake TSHon 12-04-2021 TSH 0.321 uIU/mL Critically low 0.358-3.74 0 [facility] Comment on above: Performed By: #### H GARY, CMP #### [facility] [address] [address] [address] Debra Blake TSH DL <= 0.005 mIU/L QnOrde red By: Hong Jewell on 12-04-2021 TSH Qn 0.39 m[IU]/L 0.45-5.33 [facility] Urine lactic acid measuremen tOrdered By: Hong Jewell on 12-04-2021 Lactate (U) [Moles/Vol] 1.3 mmol/L 0.5-2.2 [facility] CBC AUTO DIFFon 12-03-2021 BASO # 0.1 103/ul Normal 0.0-0.1 [facility] Comment on above: Performed By: #### H STROPN #### [facility] [address] [address] [address] Debra Blake Basophils/100 WBC (Bld) 0.6 % Normal 0.2-2.0 [facility] Comment on above: Performed By: #### H STROPN #### [facility] [address] [address] [address] Debra Blake EO # 0.1 103/ul Normal 0.0-0.7 [facility] Comment on above: Performed By: #### H STROPN #### [facility] [address] [address] [address] Debra Blake Eosinophils/100 WBC (Bld) 1.5 % Normal 0.9-7.0 [facility] Comment on above: Performed By: #### H STROPN #### [facility] [address] [place] [address] Dr. Debra Blake Erythrocyte distribution width (RBC) [Ratio] 14.6 % Normal 11.0-15.0 [facility] Comment on above: Performed By: #### H STROPN #### [facility] [address] [place] [address] Dr. Debra Blake Hematocrit (Bld) [Volume fraction] 27.4 % Critically low 36.0-48.0 [facility] Comment on above: Performed By: #### H STROPN #### [facility] [address] [place] [address] Dr. Debra Blake Hemoglobin (Bld) [Mass/Vol] 9.7 g/dL Critically low 12.0-16.0 [facility] Comment on above: Performed By: #### H STROPN #### [facility] [address] [place] [address] Dr. Debra Blake IG # 0.08 10e3/ul Critically high 0.00-0.03 [facility] Comment on above: Performed By: #### H STROPN #### [facility] [address] [place] [address] Dr. Debra Blake IG % 0.9 % Critically high 0.0-0.5 [facility] Comment on above: Performed By: #### H STROPN #### [facility] [address] [place] [address] Dr. Debra Blake LYMPH # 1.9 103/ul Normal 1.2-3.8 [facility] Comment on above: Performed By: #### H STROPN #### [facility] [address] [address] [address] Debra Blake Lymphocytes/100 WBC (Bld) 20.9 % Normal 20.5-60.0 [facility] Comment on above: Performed By: #### H STROPN #### [facility] [address] [address] [address] Debra Blake MANUAL DIFF REQ NO Normal [facility] Comment on above: Performed By: #### H STROPN #### [facility] [address] [address] [address] Debra Blake MCH (RBC) [Entitic mass] 34.5 pg Critically high 26.7-3 4.0 [facility] Comment on above: Performed By: #### H STROPN #### [facility] [address] [place] [address] Dr. Debra Blake MCHC (RBC) [Mass/Vol] 35.4 g/dL Critically high 29.9-35.2 [facility] Comment on above: Performed By: #### H STROPN #### [facility] [address] [place] [address] Dr. Debra Blake MCV (RBC) [Entitic vol] 97.5 fL Normal 81.0-99.0 [facility] Comment on above: Performed By: #### H STROPN #### [facility] [address] [place] [address] Dr. Debra Blake MONO # 1.3 103/ul Critically high 0.3-0.8 [facility] Comment on above: Performed By: #### H STROPN #### [facility] [address] [place] [address] Dr. Debra Blake Monocytes/100 WBC (Bld) 14.3 % Critically high 1.7-12. 0 [facility] Comment on above: Performed By: #### H STROPN #### [facility] [address] [place] [address] Dr. Debra Blake NEUT # 5.5 103/ul Normal 1.4-6.5 [facility] Comment on above: Performed By: #### H STROPN #### [facility] [address] [address] [address] Debra Blake Neutrophils/100 WBC (Bld) 61.8 % Normal 43.0-75.0 [facility] Comment on above: Performed By: #### H STROPN #### [facility] [address] [address] [address] Debra Blake Platelet mean volume (Bld) [Entitic vol] 9.2 fL Critically low 9.5-13.5 [facility] Comment on above: Performed By: #### H STROPN #### [facility] [address] [address] [address] Debra Blake PLT 187 103/ul Normal 150-450 [facility] Comment on above: Performed By: #### H STROPN #### [facility] [address] [address] [address] Debra Blake RBC 2.81 106/ul Critically low 4.20-5.40 [facility] Comment on above: Performed By: #### H STROPN #### [facility] [address] [address] [address] Debra Blake WBC 8.9 103/ul Normal 4.0-11.0 [facility] Comment on above: Performed By: #### H STROPN #### [facility] [address] [address] [address] Debra Blake Covid-19 PCR ([facility])on 11-09 SARS-CoV-2 (COVID-19) RNA YVONNE+probe Ql (Unsp spec) Not detected Normal NOT DETECTED [facility] Comment on above: Result Comment: When [...] for this test is supported by the [place] of [employer] and Human Service's declaration that [...] used). Performed By: #### C VDTB #### [facility] [address] [place] [address] Dr. Debra Blake ER URINE PROFILEon 2 Bilirubin Ql (U) Negative Normal NEGATIVE [facility] Comment on above: Performed By: #### U MICRO, ERUR #### [facility] [address] [place] [address] Dr. Debra Blake Clarity (U) CLEAR Normal CLEAR [facility] Comment on above: Performed By: #### U MICRO, ERUR #### [facility] [address] [place] [address] Dr. Debra Blake Color (U) LT. YELLOW Normal YELLOW [facility] Comment on above: Performed By: #### U MICRO, ERUR #### [facility] [address] [place] [address] Dr. Debra Blake ERUAHD A micrscopic examina tion will be performed if indicated. Normal [facility] Comment on above: Performed By: #### U MICRO, ERUR #### [facility] [address] [place] [address] Dr. Debra Blake Glucose Ql (U) Negative Normal NEGATIVE [facility] Comment on above: Performed By: #### U MICRO, ERUR #### [facility] [address] [place] [address] Dr. Debra Blake Hemoglobin Ql (U) TRACE-LYSED Abnormal NEGATIVE [facility] Comment on above: Performed By: #### U MICRO, ERUR #### [facility] [address] [place] [address] Dr. Debra Blake Ketones Ql (U) Negative Normal NEGATIVE [facility] Comment on above: Performed By: #### U MICRO, ERUR #### [facility] [address] [place] [address] Dr. Debra Blake LEUKOCYTES MODERATE Abnormal NEGATIVE [facility] Comment on above: Performed By: #### U MICRO, ERUR #### [facility] [address] [place] [address] Dr. Debra Blake Nitrite Ql (U) Negative Normal NEGATIVE [facility] Comment on above: Performed By: #### U MICRO, ERUR #### [facility] [address] [place] [address] Dr. Debra Blake pH (U) 6.0 [pH] Normal 5-9 [facility] Comment on above: Performed By: #### U MICRO, ERUR #### [facility] [address] [place] [address] Dr. Debra Blake SPEC GRAVITY 1.010 Normal 1.005-<=1. 025 [facility] Comment on above: Performed By: #### U MICRO, ERUR #### [facility] [address] [place] [address] Dr. Debra Blake UA PROTEIN TRACE Normal NEGATIVE/ TRACE [facility] Comment on above: Performed By: #### U MICRO, ERUR #### [facility] [address] [place] [address] Dr. Debra Blake UR MICRO IND INDICATED Normal [facility] Comment on above: Performed By: #### U MICRO, ERUR #### [facility] [address] [place] [address] Dr. Debra Blake Urobilinogen Qn (U) 0.2 {Pascale'U}/dL Normal 0.2 - 1. 0 [facility] Comment on above: Performed By: #### U MICRO, ERUR #### [facility] [address] [place] [address] Dr. Debra Blake MAGNESIUMon 12-03-2021 Magnesium [Mass/Vol] 0.4 mg/dL Critically low 1.8-2.4 [facility] Comment on above: Performed By: #### M G #### [facility] [address] [place] [address] Dr. Debra Blake PROF 14(COMP METB)on 022 Albumin [Mass/Vol] 3.2 g/dL Critically low 3.4-5.0 [facility] Comment on above: Performed By: #### H GARY, CMP #### [facility] [address] [address] [address] Debra Blake Albumin/Globulin [Mass ratio] 0.8 {ratio} Normal [facility] Comment on above: Performed By: #### H GARY, CMP #### [facility] [address] [address] [address] Debra Blake ALP [Catalytic activity/Vol] 64 U/L Normal 46-116 [facility] Comment on above: Performed By: #### H GARY, CMP #### [facility] [address] [address] [address] Debra Blake ALT [Catalytic activity/Vol] 11 U/L Critically low 14-59 [facility] Comment on above: Performed By: #### H GARY, CMP #### [facility] [address] [address] [address] Debra Blake Anion gap [Moles/Vol] 19.5 mmol/L Normal [facility] Comment on above: Performed By: #### H GARY, CMP #### [facility] [address] [address] [address] Debra Blake AST [Catalytic activity/Vol] 19 U/L Normal 15-37 [facility] Comment on above: Performed By: #### H GARY, CMP #### [facility] [address] [address] [address] Debra Blake Bilirubin [Mass/Vol] 0.5 mg/dL Normal 0.2-1.0 [facility] Comment on above: Performed By: #### H KINGSTONPN, CMP #### [facility] [address] [address] [address] Debra Blake Calcium [Mass/Vol] 5.8 mg/dL Critically low 8.5-10.1 [facility] Comment on above: Performed By: #### H GARY, CMP #### [facility] [address] [address] [address] Debra Blake Chloride [Moles/Vol] 88 mmol/L Critically low 98-107 [facility] Comment on above: Performed By: #### H STROPN, CMP #### [facility] [address] [address] [address] Debra Blake CO2 [Moles/Vol] 19.7 mmol/L Critically low 21.0-32.0 [facility] Comment on above: Performed By: #### H STROPN, CMP #### [facility] [address] [address] [address] Debra Blake Creatinine [Mass/Vol] 2.77 mg/dL Critically high 0.55-1.02 [facility] Comment on above: Performed By: #### H STROPN, CMP #### [facility] [address] [address] [address] Debra Blake EGFR-AF SALVADOREAN 21 mL/min/1.73m2 Critically low >=60 [facility] Comment on above: Performed By: #### H STROPN, CMP #### [facility] [address] [address] [address] Debra Blake EGFR-NON AF SALVADOREAN 18 mL/min/1.73m2 Critically low >=60 [facility] Comment on above: Performed By: #### H STROPN, CMP #### [facility] [address] [address] [address] Debra Blake Globulin (S) [Mass/Vol] 3.9 g/dL Normal [facility] Comment on above: Performed By: #### H STROPN, CMP #### [facility] [address] [address] [address] Debra Blake Glucose [Mass/Vol] 99 mg/dL Normal 74-106 [facility] Comment on above: Performed By: #### H STROPN, CMP #### [facility] [address] [address] [address] Debra Blake Potassium [Moles/Vol] 3.2 mmol/L Critically low 3.5-5.1 [facility] Comment on above: Performed By: #### H STROPN, CMP #### [facility] [address] [address] [address] Debra Blake Protein [Mass/Vol] 7.1 g/dL Normal 6.4-8.2 [facility] Comment on above: Performed By: #### H STROPN, CMP #### [facility] [address] [place] [address] Dr. Debra Blake Sodium [Moles/Vol] 124 mmol/L Critically low 136-145 [facility] Comment on above: Performed By: #### H STROPN, CMP #### [facility] [address] [place] [address] Dr. Debra Blake Urea nitrogen [Mass/Vol] 28.0 mg/dL Critically high 7.0-18 .0 [facility] Comment on above: Performed By: #### H STROPN, CMP #### [facility] [address] [place] [address] Dr. Debra Blake Urea nitrogen/Creatinine [Mass ratio] 10.1 mg/mg Normal [facility] Comment on above: Performed By: #### H STROPN, CMP #### [facility] [address] [place] [address] Dr. Debra Blake TROPONIN, HIGH SENSITIVITYon 12-03-2021 HSTROP 96.9 pg/mL Critically high 4.0-51.3 [facility] Comment on above: Result Comment: CUT- OFF POINTS HAVE BEEN ESTABLISHED BASED ON THE FOURTH UNIVERSAL DEFINITIONS OF MYOCARDIAL INFARCTION. THE UPPER REFERENCE LIMIT (URL) OF TROPONIN, DEFINED THE 99TH PERCENTILE OF cTnI DISTRIBUTION IN A REFERENCE POPULATION, HAS BEEN CONFIRMED THE DECISION THRESHOLD FOR [place] DIAGNOSIS. Performed By: #### H STROPN, CMP #### [facility] [address] [place] [address] Dr. Debra Blake HSTROP 102.0 pg/mL Critically high 4.0-51.3 [facility] Comment on above: Result Comment: CUT- OFF POINTS HAVE BEEN ESTABLISHED BASED ON THE FOURTH UNIVERSAL DEFINITIONS OF MYOCARDIAL INFARCTION. THE UPPER REFERENCE LIMIT (URL) OF TROPONIN, DEFINED THE 99TH PERCENTILE OF cTnI DISTRIBUTION IN A REFERENCE POPULATION, HAS BEEN CONFIRMED THE DECISION THRESHOLD FOR [place] DIAGNOSIS. Performed By: #### H STROPN, CMP #### [facility] [address] [place] [address] Dr. Debra Blake URINE MICROSCOPIC ONLYon BACTERIA SMALL Abnormal NONE SEEN [facility] Comment on above: Performed By: #### U MICRO, ERUR #### [facility] [address] [place] [address] Dr. Debra Blake Bacteria identified Cx Nom (U) INDICATED Normal [facility] Comment on above: Performed By: #### U MICRO, ERUR #### [facility] [address] [place] [address] Dr. Debra Blake CAST NONE SEEN Normal NONE SEEN [facility] Comment on above: Performed By: #### U MICRO, ERUR #### [facility] [address] [place] [address] Dr. Debra Blake Crystals LM Nom (Urine sed) NONE SEEN Normal NONE SEEN [facility] Comment on above: Performed By: #### U MICRO, ERUR #### [facility] [address] [place] [address] Dr. Debra Blake Epithelial cells LM Ql (Urine sed) FEW Abnormal NONE SEEN /RARE [facility] Comment on above: Performed By: #### U MICRO, ERUR #### [facility] [address] [place] [address] Dr. Debra Blake MUCOUS NONE SEEN Normal NONE SEEN [facility] Comment on above: Performed By: #### U MICRO, ERUR #### [facility] [address] [place] [address] Dr. Debra Blake RBC 2-5 Abnormal 0-2 [facility] Comment on above: Performed By: #### U MICRO, ERUR #### [facility] [address] [place] [address] Dr. Debra Blake WBC (U) [#/Vol] /uL Abnormal NONE SEEN [facility] Comment on above: Performed By: #### U MICRO, ERUR #### [facility] [address] [place] [address] Dr. Debra Blake XR CHEST 1 Von [...] CODY ALEXANDER Date: 2021-12-03 19:03 Normal [facility] Vital Signs Date Time Vital Sign Value Performing Clinician Facility 07-02-2024 16:32-0400 SaO2% (BldA) [Mass fraction] 91 % [facility] Comment on above: Performed By: #### ABG ####[facility] ([id number])2141 [place] [address] 06-29-2024 20:56-0400 SaO2% (BldA) [Mass fraction] 99 % [facility] Comment on above: Performed By: #### VBG ####[facility] ([id number])2141 [place] [address] 06-25-2024 04:20-0400 SaO2% (BldA) [Mass fraction] 100 % [facility] Comment on above: Performed By: #### ABG ####[facility] ([id number])2141 [place] [address] 06-24-2024 14:41-0400 SaO2% (BldA) [Mass fraction] 100 % [facility] Comment on above: Performed By: #### ABG ####[facility] ([id number])2141 [place] [address] 06-24-2024 04:59-0400 SaO2% (BldA) [Mass fraction] 100 % [facility] Comment on above: Performed By: #### ABG ####[facility] ([id number])[address] [place], [place] [address] [address] 06-22-2024 05:02-0400 SaO2% (BldA) [Mass fraction] 97 % [facility] Comment on above: Performed By: #### ABG ####[facility] ([id number])2141 [place] [address] 06-21-2024 05:57-0400 SaO2% (BldA) [Mass fraction] 97 % [facility] Comment on above: Performed By: #### ABG ####[facility] ([id number])[address] [place] [address] 06-20-2024 04:22-0400 SaO2% (BldA) [Mass fraction] 100 % [facility] Comment on above: Performed By: #### ABG ####[facility] ([id number])[address] [place] [address] 06-16-2024 04:39-0400 SaO2% (BldA) [Mass fraction] 94 % [facility] Comment on above: Performed By: #### ABG ####[facility] ([id number])[address] [place] [address] 06-15-2024 03:45-0500 SaO2% (BldA) [Mass fraction] 97 % [facility] Comment on above: Performed By: #### ABG ####[facility] ([id number])[address] [place] [address] 06-14-2024 16:44-0500 SaO2% (BldA) [Mass fraction] 97 % [facility] Comment on above: Performed By: #### ABG ####[facility] ([id number])[address] [place] [address] 06-14-2024 12:03-0500 SaO2% (BldA) [Mass fraction] 96 % [facility] Comment on above: Performed By: #### VBG ####[facility] ([id number])[address] [place] [address] 06-13-2024 20:05-0500 SaO2% (BldA) [Mass fraction] 88 % [facility] Comment on above: Performed By: #### VBG ####[facility] ([id number])[address] [place] [address] 12-27-2023 14:41-0400 Diastolic blood pressure 100 mm[Hg] [facility] 12-27-2023 14:41-0400 Heart rate 86 /min Katie Velasquez APRN Work Phone: [facility] 12-27-2023 14:41-0400 Systolic blood pressure 184 mm[Hg] [facility] 12-27-2023 14:35-0400 Body height 165.1 cm [facility] 12-27-2023 14:35-0400 Body mass index (BMI) [Ratio] 28.3 kg/m2 [facility] 12-27-2023 14:35-0400 Body temperature 98 [degF] [facility] 12-27-2023 14:35-0400 Body weight 77.16 kg [facility] 12-27-2023 14:35-0400 Heart rate 138 /min [facility] 12-27-2023 14:35-0400 Respiratory rate 20 /min [facility] 12-27-2023 14:35-0400 SaO2% (BldA) [Mass fraction] 99 % [facility] 09-28-2023 14:43-0400 Body height 165.1 cm [facility] 09-28-2023 14:43-0400 Body mass index (BMI) [Ratio] 25.6 kg/m2 [facility] 09-28-2023 14:43-0400 Body weight 69.85 kg [facility] 09-28-2023 14:43-0400 Diastolic blood pressure 76 mm[Hg] [facility] 09-28-2023 14:43-0400 Heart rate 77 /min [facility] 09-28-2023 14:43-0400 SaO2% (BldA) [Mass fraction] 98 % [facility] 09-28-2023 14:43-0400 Systolic blood pressure 118 mm[Hg] [facility] 03-15-2022 20:42-0500 Diastolic blood pressure 89 mm[Hg] DO Segundo House Work Phone: [facility] 03-15-2022 20:42-0500 Heart rate 98 /min DO Segundo House Work Phone: [facility] 03-15-2022 20:42-0500 Respiratory rate 18 /min DO Segundo House Work Phone: [facility] 03-15-2022 20:42-0500 SaO2% (BldA) [Mass fraction] 99 % DO Segundo House Work Phone: [facility] 03-15-2022 20:42-0500 Systolic blood pressure 158 mm[Hg] DO Segundo House Work Phone: [facility] 03-15-2022 18:02-0500 Body temperature 98 [degF] DO Segundo House Work Phone: [facility] 03-15-2022 17:59-0500 Body height 162.56 cm DO Segundo House Work Phone: [facility] 03-15-2022 17:59-0500 Body weight 69.3 kg DO Segundo House Work Phone: [facility] 03-15-2022 17:40-0500 Body height 165.1 cm William Vaibhav Other [facility] Other 03-15-2022 17:40-0500 Body mass index (BMI) [Ratio] 25.39 kg/m2 William Vaibhav Other [facility] Other 03-15-2022 17:40-0500 Body temperature 96.6 [degF] William Vaibhav Other [facility] Other 03-15-2022 17:40-0500 Body weight 69.22 kg William Vaibhav Other [facility] Other 03-15-2022 17:40-0500 Diastolic blood pressure 137 mm[Hg] William Vaibhav Other [facility] Other 03-15-2022 17:40-0500 Respiratory rate 18 /min William Vaibhav Other [facility] Other 03-15-2022 17:40-0500 SaO2% (BldA) [Mass fraction] 98 % William Vaibhav Other [facility] Other 03-15-2022 17:40-0500 Systolic blood pressure 221 mm[Hg] William Vaibhav Other [facility] Other 12-10-2021 11:52-0400 Body temperature 98 [degF] DO Segundo House Work Phone: [facility] 12-10-2021 11:52-0400 Diastolic blood pressure 82 mm[Hg] DO Segundo House Work Phone: [facility] 12-10-2021 11:52-0400 Heart rate 77 /min DO Segundo House Work Phone: [facility] 12-10-2021 11:52-0400 Respiratory rate 16 /min DO Segundo House Work Phone: [facility] 12-10-2021 11:52-0400 SaO2% (BldA) [Mass fraction] 99 % DO Segundo House Work Phone: [facility] 12-10-2021 11:52-0400 Systolic blood pressure 132 mm[Hg] DO Segundo Rawls Work Phone: [facility] 12-10-2021 06:00-0400 Body weight 88 kg DO Segundo House Work Phone: [facility] 12-08-2021 14:53-0400 Body height 165.1 cm DO Segundo Rawls Work Phone: [facility] Encounters Encounter Date Encounter Type Care Provider Facility Start: 09-12-2024 End: 09-12-2024 ambulatory JERARDO RUTH [facility] Start: 09-09-2024 End: 09-09-2024 Telephone encounter Jerardo Ruth LINE LEAD Work Phone: [facility] Start: 08-28-2024 End: 08-28-2024 Clinisync Result Encounter Jerardo Ruth LINE LEAD Work Phone: [facility] Unsolicited Start: 08-28-2024 End: 08-28-2024 Clinisync Result Encounter Jerardo Ruth LINE LEAD Work Phone: [facility] Unsolicited Start: 08-26-2024 End: 08-26-2024 Telephone encounter Jerardo Ruth LINE LEAD Work Phone: [facility] Start: 08-16-2024 End: 08-16-2024 Telephone encounter Jerardo Ruth LINE LEAD Work Phone: [facility] Start: 07-26-2024 End: 07-26-2024 Telephone encounter Jerardo Ruth LINE LEAD Work Phone: [facility] Start: 07-09-2024 End: 07-09-2024 ambulatory Quintin Forman MD Work Phone: [facility] Start: 06-14-2024 ambulatory [facility] Start: 06-13-2024 End: 07-03-2024 Evaluation and management of inpatient LUCIANA BLISS [facility] Start: 06-13-2024 End: 06-13-2024 ambulatory UNKNOWN PROVIDER Facility:[facility] Start: 06-13-2024 Non-patient / Non-visit Katie Velasquez APRN Work Phone: [facility] Physician [facility] Work Phone: Start: 06-12-2024 Non-patient / Non-visit Katie Velasquez PETAL CUTTER Work Phone: [facility] Work Phone: Start: 06-12-2024 End: 06-12-2024 ambulatory Sheryl Santamaria Facility:[facility] Start: 06-12-2024 End: 06-12-2024 Departed Referred Katie Velasquez PETAL CUTTER Work Phone: [facility] Start: 04-22-2024 End: 04-28-2024 Non-patient / Non-visit Katie Velasquez PETAL CUTTER Work Phone: [facility] Work Phone: Start: 02-19-2024 End: 02-19-2024 ambulatory Katie Velasquez PETAL CUTTER Work Phone: [facility] Work Phone: Start: 02-19-2024 End: 02-19-2024 Departed Referred Katie Eva PETAL CUTTER Work Phone: [facility] Start: 12-27-2023 End: 12-27-2023 ambulatory [facility] Work Phone: Start: 12-27-2023 End: 12-27-2023 Patient encounter procedure [facility] Work Phone: Start: 10-02-2023 End: 10-02-2023 Telephone encounter Abhijit Pink CMA [facility] Start: 09-28-2023 End: 09-28-2023 ambulatory [facility] Work Phone: Start: 09-28-2023 End: 09-28-2023 Patient encounter procedure [facility] Work Phone: Start: 03-15-2022 End: 03-15-2022 Emergency department patient visit DO Segundo House Work Phone: [facility]-Emergency Room Start: 03-15-2022 End: 03-15-2022 ambulatory William Vaibhav Other [facility] Other Start: 03-15-2022 Office outpatient visit 25 minutes William Vaibhav [facility] Start: 12-19-2021 End: 12-19-2021 ambulatory JUNO HERNÁNDEZ Facility:[facility] Start: 12-15-2021 ambulatory MD Luis LEONARDO [facility] ity:[facility] Natal[facility] Start: 12-08-2021 End: 12-09-2021 ambulatory MD Luis LEONARDO Facility:CD:[id number] Start: 12-04-2021 End: 12-10-2021 Evaluation and management of inpatient DO Segundo Rawls Work Phone: [facility] [place] [facility] Start: 12-03-2021 End: 12-04-[address] UNIQUE AUSTIN Facility:[facility] Start: 07-04-2017 End: 07-05-2017 Ambulatory DEFAULT PHYSICIAN Facility:[facility] Start: 05-02-2017 End: 05-03-2017 Ambulatory DEFAULT PHYSICIAN Facility:[facility] Procedures Date Procedure Procedure Detail Performing Clinician Start: 08-28-2024 ALL HEMOGLOBIN Jerardo C Mi ller [employer] LE[employer] Work Phone: Start: 03-15-2022 Plain chest X-ray DO Ch sophie House Work Phone: Start: 12-08-2021 CT of abdomen and pe lvis without contrast DO Segundo Rawls Work Phone: Start: 12-07-2021 Ultrasonography of b ilateral kidneys DO Segundo Rawls Work Phone: Start: 12-06-2021 CT of chest without contrast DO Segundo Rawls Work Phone: Measurement of occul t blood in stool specimen using immunoassay DO [employer] Work Phone: Urine culture DO [facility] Work Phone: Plan of Treatment Date Care Activity Detail Author Start: 07-03-2025 Adult BMI Screening Adult BMI Screening [facility] Start: 12-09-2024 Influenza vaccination Influenza Vaccine [facility] Start: 07-17-2024 End: 07-17-2024 Patient encounter procedure 07/17/2024 2:30 PM EDT Office Visit [facility] [address] [place] [address] [address] [place] [address] Rosalinda Nathan, [address], [address] [place] [id number] [facility] Start: 06-12-2024 Urine culture [facility] Start: 06-12-2024 Bacteria identified in Urine by Culture Urine Culture [facility] Start: 12-27-2023 Patient referral [facility] Work Phone: Start: 12-10-2023 Influenza vaccination Influenza Vaccine [facility] Start: 09-28-2023 Patient referral [facility] Work Phone: Start: 12-10-2021 [facility] Work Phone: Start: 12-08-2021 Referral to urologist [facility] Work Phone: Start: 12-06-2021 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 [facility] Work Phone: Start: 12-05-2021 Referral to manager enterprise [facility] Work Phone: Start: 12-05-2021 Administration of prophylactic treatment [facility] Work Phone: Start: 12-05-2021 Ascorbic acid measurement [facility] Work Phone: Start: 12-04-2021 Referral to ornamental metalwork designer [facility] Work Phone: Start: 12-04-2021 Referral to Correctional Officer [facility] Work Phone: Start: 12-04-2021 Hospital admission [facility] Work Phone: Start: 2013 Administration of varicella zoster vaccine Zoster (Shingles) Vaccine (1 of 2) [facility] Start: 01-31-1984 Screening for malignant neoplasm of cervix Pap Smear [facility] Start: 1982 DTaP,Tdap and Td Vaccines (1 - Tdap) DTaP,Tdap and Td Vaccines (1 - Tdap) [facility] Start: 1981 Adult BMI Screening Adult BMI Screening [facility] System Start: 1975 Depression Screening Depression Screening [facility] Start: 1975 Tobacco Screening Tobacco Screening [facility] Blood chemistry [facility] Work Phone: Comprehensive metabo lic 2000 panel - Serum or Plasma [facility] MG Breast - bilatera l Diagnostic [facility] Patient Education High Blood Pre ssure ED [facility] Work Phone: [facility] referral [facility] Work [facility]: Phosphatidylethanol [Mass/volume] in Blood [facility] Work Phone: Thiamine [Moles/volu me] in Blood [facility] Work Phone: US Breast - left limited [facility] Payers Date Payer Category Payer Self-pay 2023 Medicaid [facility] MEDICAID [id number] 2023 Medicaid [id number] 2023 Private Health Insurance [employer] [id number] 2022 Unknown [id number] 1965 Unknown [id number] [id number]. 593 1963 Unknown [id number] 2.16.840.1.834269.3.579.2. 593 1965 Unknown [id number] 2.16.840.1.080285.3.579.2. 727 1965 Unknown [id number] 2.16.840.1.991080.3.579.2. 1286 1963 Unknown [id number] 2.16.840.1.158546.3.579.2. 1286 1963 Unknown [id number] 2.16.840.1.776548.3.579.2. 1286 1963 Unknown [id number] 2.16.840.1.090086.3.579.2. 1286 1963 Unknown [id number] 2.16.840.1.185696.3.579.2. 732 1963 Unknown [id number] 2.16.840.1.012669.3.579.2. 1286 1963 Unknown [id number] 2.16.840.1.732310.3.579.2. 1286 1959 Unknown [id number] Unknown Unknown [id number] 2.16.840.1.712267.3.579.2. 531 Unknown [id number] [id number]. 531 Social History Date Type Detail Facility Start: 12-08-2021 End: 09-28-2023 Tobacco smoking status [facility] Smoker (finding) [facility] Start: 1965 Sex Assigned At Female F [facility] Start: 09-19-2018 Sex Assigned At N [facility] Agent Panda Other Start: 11-13-2014 End: 02-21-2024 Sex Female (finding) [facility] Tobacco smoking status [facility] Tobacco smoking consumption unknown [facility] Start: 09-19-2018 History of Social function [facility] Child[facility] Start: 1965 Sex assigned at Not on file P [facility] Goals Date Patient Goal Desired Activity /State Personal health goal Comment on above: Formatting of this n ote might be different from the original. Evaluation of progress towards goal: Progress towards discharge Functional Status Date Assessment Result Facility 12-10-2021 Functional status Patient is Pro gressing Toward Baseline [facility] Work Phone: Mental Status Date Assessment Result Facility 12-10-2021 Cognitive function Cognitive Sta tus Patient at Baseline [facility] Work Phone: Clinical Notes 12-04-2021 to 09-09-2024 Telephone Encounter - Jerardo Ruth NP - 09/09/2024 3:28 PM EDTTelephone Encounter - Jerardo Ruth NP - 09/09/2024 3:28 PM EDTTelephone Encounter - Jerardo Ruth NP - 08/26/2024 4:52 PM EDT Note Date & Type Note Facility 09-09-2024 Telephone encount er Note Requested Prescriptions Signed Prescriptions Disp Refills HYDROcodone-acetaminophen ([place]) 5-325 MG tablet 120 tablet 0 Sig: Take 1 tablet by mouth every 6 (six) hours if needed for severe pain Authorizing Provider: JERARDO RUTH [facility] 09-09-2024 Miscellaneous Notes Formattin g of this note is different from the original. Requested Prescriptions Signed Prescriptions Disp Refills HYDROcodone-acetaminophen ([place]) 5-325 MG tablet 120 tablet 0 Sig: Take 1 tablet by mouth every 6 (six) hours if needed for severe pain Authorizing Provider: JERARDO RUTH documented in this encounter [facility] 08-26-2024 Telephone encount er Note Requested Prescriptions Signed Prescriptions Disp Refills LORazepam (Ativan) 0.5 MG tablet 42 tablet 0 Sig: Take 1 tablet (0.5 mg) by mouth every 8 (eight) hours if needed for anxiety for up to 14 days Authorizing Provider: JERARDO RUTH [facility] 08-26-2024 Miscellaneous Notes Formattin g of this note is different from the original. Requested Prescriptions Signed Prescriptions Disp Refills LORazepam (Ativan) 0.5 MG tablet 42 tablet 0 Sig: Take 1 tablet (0.5 mg) by mouth every 8 (eight) hours if needed for anxiety for up to 14 days Authorizing Provider: JERARDO RUTH documented in this encounter [facility] 08-16-2024 Telephone encount er Note Requested Prescriptions Signed Prescriptions Disp Refills LORazepam (Ativan) 1 MG tablet 30 tablet 0 Sig: Take 1 tablet (1 mg) by mouth Daily Give daily before HD on dialysis days Authorizing Provider: JERARDO RUTH [facility] 08-16-2024 Miscellaneous Notes Formattin g of this note is different from the original. Requested Prescriptions Signed Prescriptions Disp Refills LORazepam (Ativan) 1 MG tablet 30 tablet 0 Sig: Take 1 tablet (1 mg) by mouth Daily Give daily before HD on dialysis days Authorizing Provider: JERARDO RUTH documented in this encounter [facility] 07-26-2024 Telephone encount er Note Requested Prescriptions Signed Prescriptions Disp Refills LORazepam (Ativan) 0.5 MG tablet 28 tablet 0 Sig: Take 2 tablets (1 mg) by mouth Daily for 14 days Give daily before HD on Mon, , Mon, , Monday. Authorizing Provider: JERARDO RUTH [facility] 07-26-2024 Miscellaneous Notes Formattin g of this note is different from the original. Requested Prescriptions Signed Prescriptions Disp Refills LORazepam (Ativan) 0.5 MG tablet 28 tablet 0 Sig: Take 2 tablets (1 mg) by mouth Daily for 14 days Give daily before HD on Mon, , Mon, , Monday. Authorizing Provider: JERARDO RUTH documented in this encounter [facility] 07-09-2024 History of Presen t illness Narrative BAL cultures collected on 07/02 growing MRSA the results were finalized after patient's discharge. Currently patient is residing at [facility], which were contacted and patient caring staff was notified. documented in this encounter [facility] 12-27-2023 Evaluation note Diagnosis Onset Date Resolution [...] 27, 2023 2:30pm Weakness acute December 2:30pm [facility] Work Phone: 1(311) 923-715006-24-2024 Miscellaneous Notes* Telephone Encounter - Abhijit Pink CMA - 10/02/2023 9:55 AM EDT Called patient in regards to referral and we were to far of a drive. Advised patient to call referring provider to look for someone closer. [facility] Tele[facility] encounter Note* Telephone Encounter - Abhijit Pink CMA - 10/02/2023 9:55 AM EDT Called patient in regards to referral and we were to far of a drive. Advised patient to call referring provider to look for someone closer. [facility]12-06-2022 Evaluation note* Encounter Date Diagnosis Assessment Notes [...] Advised to go to the emergency room. Radario Other 09-07-2022 Note [id number]:[address] [place] [address] 12-10-2021 Discharge summary Author Hong Jewell [facility] December 10, 2021 7:47pm Note Date/Time December 10, 2021 1:26pm [facility] [address] [place] [address] Discharge Summary Signed Patient: Orestes Alvares MR#: [id number] : 1965 Acct:[id number] Age/Sex: 56 / F Adm Date: 2 Loc: Room: [address] [place] [address]: Hong Jewell DO Copies to: MD Segundo Tijerina DO Hong Jewell, DO Luis Leonardo MD~ Providers Date of Discharge: 12/10/21 Discharging [...] about 24 hours before bed opened up. [facility]. Here in the hospital she did initially [...] ablation for that problem x2 at the [facility]. She had nephrology consultation. He felt that [...] % (Auto) 62.7, Lymph % (Auto) 21.7, [place] % (Auto) 11.2, Eos % (Auto) 3.5, Baso % (Auto) 0.9, Neut # (Auto) 3.9, Lymph # (Auto) 1.4, [place] # (Auto) 0.7, Eos # (Auto) 0.2, Baso # (Auto) 0.1, Nucleated RBC % (auto) 0.0 12/09/21 18:15: Hgb 8.0 L, Hct 24.2 L 12/09/21 14:48: Double Strand DNA Ab <1 12/07/21 12:45: Ur Random Albumin 69.2, U Random Total Protein 51.3, U Vyvtc-6-Ozwexpei (%) 3.1, U Random b-4-Nqtnkcco % 6.0, U Random b-Globulin % 13.5, [...] <Electronically signed by Hong Jewell DO> 12/10/211946 [facility] Work Phone: 1(323) 570-569309-02-2022 Progress note Author William Esposito [facility] December 10, 2021 11:31am Note Date/Time December 10, 2021 11:24am [facility] [address] [place] [address] Nephrology Progress Note Signed Patient: Orestes Alvares MR#: [id number] : 1965 Acct:[id number] Age/Sex: 56 / F Adm Date: 2 Loc: Room: [address] [place] [address] Type: ADM IN Attending Dr: Hong Jewell DO Copies to: ~ Date of Service: 12/10/2021 Subjective Subjective Narrative: Mrs. Alvares is a 56-year-old white female with history of COPD, smoker, alcohol abuse and hypothyroidism on levothyroxine who was transferred from [facility] on 12/04 for abnormal blood work [...] 1 g of calcium before transfer to [facility]. 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, following simple command Musculoskeletal: No joint [...] 50 Mcg Tablet) 50 mcg PO DAILY.629 [facility] Stop: 12/05/22 06:29 Last Admin: 12/10/21 [...] 100 Mg Tablet) 200 mg PO DAILY [facility] Stop: 12/10/22 08:59 Last Admin: 12/10/21 08:31 Dose: 200 mg Vitamin D (Cholecalciferol 10 Mcg (400 Units) Tablet) 20 mcg PO BID.WITH.MEALS [facility] Stop: 12/07/22 07:59 Last Admin: 12/10/21 08:30 [...] signed by William Esposito MD> 12/10/21 1131 [facility] Work Phone: 1(120) 762-865409-01-2022 Progress note Author Hong Jewell [facility] December 09, 2021 4:10pm Note Date/Time December 09, 2021 4:10pm [facility] [address] [place] [address] Hospitalist Progress Note Signed Patient: Orestes Alvares MR#: [id number] : 1965 Acct:[id number] Age/Sex: 56 / F Adm Date: 2 Loc: Room: [address] [place] [address] Type: ADM IN Attending Dr: Hong Jewell [...] gm in 50 mls @ 25 mls/hr 08/27/22 10:16 Magnesium Sulf 2gm-*Swfi* IV 12/04/22 10:15 [...] antibiotic with Levaquin 5. Alcohol abuse/dependence Continue CIWI protocol 6. Hydronephrosis on the right - [...] signed by Hong Jewell DO> 12/09/21 1610 [facility] Work Phone: 1(765) 448-648309-01-2022 Progress note Author William Esposito [facility] December 09, 2021 10:58am Note Date/Time December 09, 2021 10:58am [facility] [address] [place] [address] Nephrology Progress Note Signed Patient: Orestes Alvares MR#: [id number] : 1965 Acct:[id number] Age/Sex: 56 / F Adm Date: 2 Loc: Room: [address] [place] [address] Type: ADM IN Attending Dr: Hong Jewell DO Copies to: ~ Date of Service: 12/09/2021 Subjective Subjective Narrative: Mrs. Alvares is a 56-year-old white female with history of COPD, smoker, alcohol abuse and hypothyroidism on levothyroxine who was transferred from [facility] on 12/04 for abnormal blood work [...] 1 g of calcium before transfer to [facility]. 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, following simple command Musculoskeletal: No joint swelling or limitation of movement Psychiatric: Cooperative, normal mood and affect abdominal hysterectomy Objective Intake and Output I&O: Intake & Output 12/06/21 12/07/21 12/08/21 12/09/21 23:59 23:59 23:59 23:59 Intake Total 1794.2 / 1794.2 1186.2 / 1186.2 1196.2 / 1196.2 200 / 200 Output Total 2 / 600 / 600 Balance 1792.2 / [...] 40 Mg Tablet) 40 mg PO DAILY.8A [facility] Stop: 12/10/22 07:59 Magnesium Sulfate (Magnesium [...] 50 Mcg Tablet) 50 mcg PO DAILY.0630 [facility] Stop: 12/05/22 06:29 Last Admin: 12/09/21 05:30 Dose: 50 mcg Metoprolol Succinate (Metoprolol Succinate 100 Mg Tab.Er.24h) 100 mg PO DAILY [facility] Stop: 12/04/22 17:43 Last Admin: 12/09/21 08:14 Dose: 100 mg Metoprolol Tartrate (Metoprolol Tartrate 5 Mg/5 Ml Vial) 5 mg IV-PUSH Q4H PRN PRN Reason: tachycardia Stop: 12/06/22 19:17 Nicotine (Nicotine Patch 21 Mg/24hr 1 Each Patch.Td24) 1 each TRANSDERML DAILY [facility] Stop: 12/06/22 08:59 Last Admin: 12/09/21 08:15 Dose: Not Given Omeprazole (Omeprazole 20 Mg Capsule.Dr) 20 mg PO DAILY [facility] Stop: 12/05/22 08:59 Last Admin: 12/09/21 08:14 [...] TID [facility] Stop: 12/07/22 13:59 Last Admin: 12/09/21 08:14 Dose: 650 mg Sodium Chloride (Sodium Chloride 0.9 % 10 Ml Syringe) 0 ml IV-PUSH PRN PRN PRN Reason: Flush Stop: 12/04/22 10:15 Last Admin: 12/08/21 21:14 Dose: 10 ml Vitamin D (Cholecalciferol 10 Mcg (400 Units) Tablet) 20 mcg PO BID.WITH.MEALS [facility] Stop: 12/07/22 07:59 Last Admin: 12/09/21 08:13 [...] Unique Enciso M.D.12/08/2021 5:49 PM Dictation Location: [id number] Any impression(s) listed above is documentation that [...] <Electronically signed by William Esposito MD> 12/09/21 1052 [facility] Work Phone: 1(813) 940-857508-31-2022 Progress note Author Claude Castellanos [facility] December 08, 2021 6:59pm Note Date/Time December 08, 2021 6: 59pm [facility] [address] [place] [address] Hospitalist Progress Note Signed Patient: Orestes Alvares MR#: [id number] : 1965 Acct:[id number] Age/Sex: 56 / F Adm Date: 2 Loc: Room: [address] [place] [address] Type: ADM IN Attending Dr: Claude Castellanos [...] <Electronically signed by Claude Castellanos MD> 12/08/211858 [facility] Work Phone: 1(568) 752-494708-31-2022 Consult note Author Luis Leonardo [facility] December 08, 2021 3:55pm Note Date/Time December 08, 2021 3: 55pm [facility] [address] [place] [address] Urology Consult Note Signed Patient: Orestes Alvares MR#: [id number] : 1965 Acct:[id number] Age/Sex: 56 / F Adm Date: 2 Loc: Room: [address] [place] [address] Type: ADM IN Attending Dr: Claude Castellanos MD Copies to: DO Claude Rose MD Patrick R Waters, MD~ History of Present Illness Consult Details Consult Date: 12/08/2021 Requesting Provider: Claude Castellanos MD HPI: This lady was admitted to the hospital after transfer from [facility] dueto low sodium, calcium and magnesium [...] % (Auto) 55.8, Lymph % (Auto) 27.7, [place] % (Auto) 13.1, Eos % (Auto) 2.7, Baso % (Auto) 0.7, Neut # (Auto) 3.1, Lymph # (Auto) 1.6, [place] # (Auto) 0.7, Eos # (Auto) 0.2, [...] % (Auto) 83.6, Lymph % (Auto) 7.8, [place] % (Auto) 8.3, Eos % (Auto) 0.1, Baso % (Auto) 0.2, Neut # (Auto) 6.2, Lymph # (Auto) 0.6 L, [place] # (Auto) 0.6, Eos # (Auto) 0.0, [...] <Electronically signed by MD Luis Leonardo> 12/08/21 1555 [facility] Work Phone: 1(208) 135-675408-31-2022 Progress note Author William Esposito [facility] December 08, 2021 11:01am Note Date/Time December 08, 2021 10 :55am [facility] [address] [place] [address] Nephrology Progress Note Signed Patient: Orestes Alvares MR#: [id number] : 1965 Acct:[id number] Age/Sex: 56 / F Adm Date: 2 Loc: Room: [address] [place] [address] Type: ADM IN Attending Dr: Claude Castellanos MD Copies to: ~ Date of Service: 12/08/2021 Subjective Subjective Narrative: Mrs. Alvares is a 56-year-old white female with history of COPD, smoker, alcohol abuse and hypothyroidism on levothyroxine who was transferred from [facility] on 12/04 for abnormal blood work [...] 1 g of calcium before transfer to [facility]. 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, following simple command Musculoskeletal: No joint [...] 500 Mg Tablet) 500 mg PO BID.WITH.BFAST.LUNCH [facility] Stop: 12/05/22 07:59 Last Admin: 12/08/21 08:29 Dose: 500 mg Calcium Carbonate (Calcium Carbonate 500 Mg Tablet) 1,000 mg PO BID [facility] Stop: 12/06/22 09:29 Last Admin: 12/08/21 [...] 50.2 mls @ 100.4 mls/hr IV DAILY [facility] Stop: 12/04/22 13:59 Last Admin: 12/08/21 09:44 Dose: 100 mls/hr Thiamine HCl 200 mg/ Sodium (Chloride) 102 mls @ 204 mls/hr IV TID [facility] Stop: 12/04/22 21:59 Last Infusion: 12/08/21 08:59 Dose: Infused Levofloxacin (Levofloxacin 750 Mg Tablet) 750 mg PO Q48H [facility] Levothyroxine Sodium (Levothyroxine 50 Mcg Tablet) 50 mcg PO DAILY.06 [facility] Stop: 12/05/22 06:29 Last Admin: 12/08/21 05:51 Dose: 50 mcg Metoprolol Succinate (Metoprolol Succinate 100 Mg Tab.Er.24h) 100 mg PO DAILY [facility] Stop: 12/04/22 17:43 Last Admin: 12/08/21 08:29 Dose: 100 mg Metoprolol Tartrate (Metoprolol Tartrate 5 Mg/5 Ml Vial) 5 mg IV-PUSH Q4H PRN PRN Reason: tachycardia Stop: 12/06/22 19:17 Nicotine (Nicotine Patch 21 Mg/24hr 1 Each Patch.Td24) 1 each TRANSDERML DAILY [facility] Stop: 12/06/22 08:59 Last Admin: 12/08/21 08:29 Dose: Not Given Omeprazole (Omeprazole 20 Mg Capsule.Dr) 20 mg PO DAILY [facility] Stop: 12/05/22 08:59 Last Admin: 12/08/21 [...] Unique Enciso M.D.12/07/2021 4:27 PM Dictation Location: [place] [address] Any impression(s) listed above is documentation that [...] signed by William Esposito MD> 12/08/21 1101 [facility] Work Phone: 1(790) 205-498508-30-2022 Progress note Author Claude Castellanos [facility] December 07, 2021 8:00pm Note Date/Time December 07, 2021 8: 00pm [facility] [address] [place] [address] Hospitalist Progress Note Signed Patient: Orestes Alvares MR#: [id number] : 1965 Acct:[id number] Age/Sex: 56 / F Adm Date: 2 Loc: 4P Room: [address] [place] [address] Type: ADM IN Attending Dr: Claude Castellanos [...] Dose Route Start Last Admin Trade Name Mustaphaq PRN Reason Stop Dose Admin Acetaminophen 650 [...] <Electronically signed by Claude Castellanos MD> 12/07/211999 [facility] Work Phone: 1(963) 320-678208-30-2022 Consult note Author Kylah Kingsley [facility] December 07, 2021 4:57pm Note Date/Time December 07, 2021 4: 51pm [facility] [address] [place] [address] Cardiology Consult Note Signed Patient: Orestes Alvares MR#: [id number] : 1965 Acct:[id number] Age/Sex: 56 / F Adm Date: 2 Loc: Room: [address] [place] [address] Type: ADM IN Attending Dr: Claude Castellanos MD Copies to: DO Claude Rose MD Hassan M Ibrahim, MD, FACC~ Cardiology HPI History of Present Illness Consult Date: 12/07/21 Reason for Consult: Paroxysmal atrial fibrillation HPI: Ms. Alvares is a 56 year old female who is being seen at the request of the hospitalist because of paroxysmal atrial fibrillation. Patient presented to [place] emergency department with syncopal event believed to [...] denies any complaints. While she was in [place] emergency department her high-sensitivitytroponin was elevated at [...] Lymph # (Auto) 0.6 L (1.00-4.8) x10E3/uL [place]nee # (Auto) 0.6 (0.0-0.8) x10E3/uL Eos # [...] ml @ 100.4 mls/hr IV DAILY [facility] Rx#:[id number] Thiamine 200 mg In Sodium 102 / 102 Chloride 0.9% 100 ml 100 ml @ 204 mls/hr IV TID [facility] Rx#: [id number] Oral 150 / 350 200 / 350 [...] failure, unspecified Documented By: Kylah Kingsley MD, [facility] 2 1649 Signed By: <Electronically signed by [facility] HILLBertha Kingsley> 12/07/21 8211 [facility] Work Phone: 1(230) 391-285608-30-2022 Progress note Author William Esposito [facility] December 07, 2021 10:38am Note Date/Time December 07, 2021 10 :34am [facility] [address] [place] [address] Nephrology Progress Note Signed Patient: Orestes Alvares MR#: [id number] : 1965 Acct:[id number] Age/Sex: 56 / F Adm Date: 2 Loc: 4 Room: [address] [place] [address] Type: ADM IN Attending Dr: Claude Castellanos MD Copies to: ~ Date of Service: 12/07/2021 Subjective Subjective Narrative: Mrs. Alvares is a 56-year-old white female with history of COPD, smoker, alcohol abuse and hypothyroidism on levothyroxine who was transferred from [facility] on 12/04 for abnormal blood work [...] 1 g of calcium before transfer to [facility]. 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, following simple command Musculoskeletal: No joint [...] 500 Mg Tablet) 1,000 mg PO BID [facility] Stop: 12/06/22 09:29 Last Admin: 12/07/21 08:11 [...] 102 mls @ 204 mls/hr IV TID [facility] Stop: 12/04/22 21:59 Last Infusion: 12/07/21 09:17 Dose: Infused Levofloxacin (Levaquin) 750 mg in 150 mls @ 100 mls/hr IV Q48H [facility] Last Admin: 12/07/21 09:31 Dose: 100 mls/hr Sodium Bicarbonate 150 meq/ (Dextrose) 1,150 mls @ 100 mls/hr IV .[id number] [facility] Stop: 12/06/22 19:29 Last Admin: 12/06/21 20:18 Dose: 100 mls/hr Levothyroxine Sodium (Levothyroxine 50 Mcg Tablet) 50 mcg PO DAILY.0630 [facility] Stop: 12/05/22 06:29 Last Admin: 12/07/21 05:42 Dose: 50 mcg Metoprolol Succinate (Metoprolol Succinate 100 Mg Tab.Er.24h) 100 mg PO DAILY [facility] Stop: 12/04/22 17:43 Last Admin: 12/07/21 08:12 Dose: 100 mg Metoprolol Tartrate (Metoprolol Tartrate 5 Mg/5 Ml Vial) 5 mg IV-PUSH Q4H PRN PRN Reason: tachycardia Stop: 12/06/22 19:17 Nicotine (Nicotine Patch 21 Mg/24hr 1 Each Patch.Td24) 1 each TRANSDERML DAILY [facility] Stop: 12/06/22 08:59 Last Admin: 12/07/21 08:12 Dose: 1 each Omeprazole (Omeprazole 20 Mg Capsule.Dr) 20 mg PO DAILY [facility] Stop: 12/05/22 08:59 Last Admin: 12/07/21 08:12 [...] Rossi Salinas M.D.12/06/2021 6:01 PM Dictation Location: [place] [address] Any impression(s) listed above is documentation that [...] signed by William Esposito MD> 12/07/21 1038 [facility] Work Phone: 1(363) 357-858108-29-2022 Progress note Author Hong Jewell [facility] December 06, 2021 7:32pm Note Date/Time December 06, 2021 7: 32pm [facility] [address] [place] [address] Hospitalist Progress Note Signed Patient: Orestes Alvares MR#: [id number] : 1965 Acct:[id number] Age/Sex: 56 / F Adm Date: 2 Loc: Room: [address] [place] [address] Type: ADM IN Attending Dr: Hong Jewell [...] that she reported were completed at the [facility]. Given her vasovagal syncope in the bathroom [...] 11:01 Dextrose IV 12/06/21 20:59 100 mls/hr .[id number] [facility] Administration Sodium Chloride 1,000 mls @ [...] <Electronically signed by Hong Jewell DO> 12/06/211931 [facility] Work Phone: 1(364) 792-192008-29-2022 Consult note Author Rehan Russ [facility] December 06, 2021 5:46pm Note Date/Time December 06, 2021 5: 46pm [facility] [address] [place] [address] Gastroenterology Consult Note Signed Patient: Orestes Alvares MR#: [id number] : 1965 Acct:[id number] Age/Sex: 56 / F Adm Date: 2 Loc: Room: [address] [place] [address] Type: ADM IN Attending Dr: Hong Jewell DO Copies to: DO Hong Rose DO Lawrence R Mccormack, MD~ HPI Data of Consult Date of Consultation: 12/06/21 Requesting Physician: Hong Jewell DO Consult Narrative History of present illness: Ms. Alvares is a 56 year old female who is referred because of anemia and GI bleeding. History is well recorded. The patient was transferred to the [place] ER and admitted the day before yesterday [...] EGD and colonoscopy several years ago in [place]. She was told that she had a gastric polyp and a colon polyp. She has not had this rechecked. Hemoglobin did drop to 7.7 but is now 8.7. Stool for occult blood is negative. Blood counts show macrocytic indices with normal ferritin. Review of systems includes hypertension, hypothyroidism, history of [place], history of SVT. cc:: CC: Hong Jewell [...] % (Auto) 62.7 Lymph % (Auto) 19.7 [place] % (Auto) 14.4 Eos % (Auto) 2.3 Baso % (Auto) 0.9 Neut # (Auto) 4.0 Lymph # (Auto) 1.3 [place] # (Auto) 0.9 H Eos # (Auto) [...] MPV Neut % (Auto) Lymph % (Auto) [place] % (Auto) Eos % (Auto) Baso % (Auto) Neut # (Auto) Lymph # (Auto) [place] # (Auto) Eos # (Auto) Baso # [...] <Electronically signed by MD Rehan Russ> 12/06/211745 [facility] Work Phone: 1(649) 183-187608-29-2022 Progress note Author William Esposito [facility] December 06, 2021 1:19pm Note Date/Time December 06, 2021 1: 19pm [facility] [address] [place] [address] Nephrology Progress Note Signed Patient: Orestes Alvares MR#: [id number] : 1965 Acct:[id number] Age/Sex: 56 / F Adm Date: 2 Loc: Room: [address] [place] [address] Type: ADM IN Attending Dr: Hong Jewell DO Copies to: ~ Date of Service: 12/06/2021 Subjective Subjective Narrative: Mrs. Alvares is a 56-year-old white female with history of COPD, smoker, alcohol abuse and hypothyroidism on levothyroxine who was transferred from [facility] on 12/04 for abnormal blood work [...] 1 g of calcium before transfer to [facility]. 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, following simple command Musculoskeletal: No joint swelling or limitation of movement Psychiatric: Cooperative, normal mood and affect abdominal hysterectomy Objective Intake and Output I&O: Intake & Output 12/03/21 12/04/21 12/05/21 12/06/21 23:59 23:59 23:59 23:59 Intake Total 1950.2 / 1949.2 3556.2 / 3556.2 0 / 0 Balance 1950.2 / 1950.2 3556.2 / 3556.2 0 / 0 Weight 76.4 kg 75 kg 75.8 kg Meds and Allergies Meds: Active Medications Acetaminophen (Acetaminophen 325 Mg Tablet) 650 mg PO Q6HR PRN PRN Reason: Pain Scale 1 - 3 or fever Stop: 12/04/22 10:15 Ascorbic Acid (Ascorbic Acid 500 Mg Tablet) 500 mg PO BID.WITH.BFAST.LUNCH [facility] Stop: 12/05/22 07:59 Last Admin: 12/06/21 11:12 Dose: Not Given Calcium Carbonate (Calcium Carbonate 500 Mg Tablet) 1,000 mg PO BID [facility] Stop: 12/06/22 09:29 Last Admin: 12/06/21 11:13 Dose: Not Given Magnesium Sulfate (Magnesium Sulf 2gm-*Swfi*) 2 gm in 50 mls @ 25 mls/hr IV DAILY PRN PRN Reason: Magnesium Level < 1.5 Stop: 12/04/22 10:15 Folic Acid 1 mg/ Dextrose 50.2 mls @ 100.4 mls/hr IV DAILY [facility] Stop: 12/04/22 13:59 Last Admin: 12/06/21 11:00 Dose: 100 mls/hr Thiamine HCl 200 mg/ Sodium (Chloride) 102 mls @ 204 mls/hr IV TID [facility] Stop: 12/04/22 21:59 Last Admin: 12/05/21 22:05 Dose: 204 mls/hr Levofloxacin (Levaquin) 750 mg in 150 mls @ 100 mls/hr IV Q48H [facility] Last Admin: 12/05/21 09:17 Dose: 100 mls/hr Ferric Sodium Gluconate Complex 250 mg/ Sodium Chloride 270 mls @ 135 mls/hr IVQAM [facility] Stop: 12/09/21 08:59 Last Admin: 12/06/21 11:01 Dose: 135 mls/hr Sodium Bicarbonate 150 meq/ (Dextrose) 1,150 mls @ 100 mls/hr IV .[id number] [facility] Stop: 12/06/21 20:59 Last Admin: 12/06/21 [...] Stop: 12/06/22 08:59 Omeprazole (Omeprazole 20 Mg Capsule.) 20 mg [...] signed by William Esposito MD> 12/06/21 1319 [facility] Work Phone: 1([phone] 713-816708-28-2022 Progress note Author Hong Jewell [facility] December 05, 2021 5:23pm Note Date/Time December 05, 2021 5: 09pm [facility] [address] [place] [address] Hospitalist Progress Note Signed with Addenda Patient: Orestes Alvares MR#: [id number] : 1965 Acct:[id number] Age/Sex: 56 / F Adm Date: 2 Loc: Room: [address] [place] [address] Type: ADM IN Attending Dr: Hong Jewell [...] Lactated Ringer's IV 12/04/22 14:14 75 mls/hr .[id number] CINTIA Administration Folic Acid 1 mg/ Dextrose [...] or symptoms. Documented By: Hong Jewell DO [id number] Signed By: <Electronically signed by Hong Jewell DO> 12/05/21 1722 [facility] Work Phone: [phone]) [phone] Consult note Author Nilesh Oakley [facility] December 05, 2021 2:55pm Note Date/Time December 05, 2021 2: 55pm [facility] [address] [place], [place] [id number] Nephrology Consult Note Signed Patient: Orestes Alvares MR#: [id number] : 1965 Acct:[id number] Age/Sex: 56 / F Adm Date: 2 Loc: Room: [address] [place] [address] Type: ADM IN Attending Dr: Hong Jewell DO Copies to: DO Nilesh Rose MD Kristopher L Lindbloom, DO~ Providers Consult Date: 12/05/21 Requesting Provider: Hong Jewell DO Primary Care Provider: Segundo Rawls DO HPI Reason for Consult: Hyponatremia 125 mmol/L History of Present Illness: Mrs. Alvares is a 56-year-old white female with history of COPD, smoker, alcohol abuse and hypothyroidism on levothyroxine who was transferred from [facility] on 12/04 for abnormal blood work [...] 1 g of calcium before transfer to [facility]. Today's creatinine is slightly better 1.87 [...] 500 Mg Tablet) 500 mg PO BID.WITH.BFAST.LUNCH [facility] Stop: 12/05/22 07:59 Last Admin: 12/05/21 11:55 Dose: 500 mg Magnesium Sulfate (Magnesium Sulf 2gm-*Swfi*) 2 gm in 50 mls @ 25 mls/hr IV DAILY PRN PRN Reason: Magnesium Level < 1.5 Stop: 12/04/22 10:15 Potassium Chloride 20 meq/ (Lactated Ringer's) 1,010 mls @ 75 mls/hr IV .[id number] [facility] Stop: 12/04/22 14:14 Last Admin: 12/05/21 01:34 Dose: 75 mls/hr Folic Acid 1 mg/ Dextrose 50.2 mls @ 100.4 mls/hr IV DAILY [facility] Stop: 12/04/22 13:59 Last Admin: 12/05/21 09:17 Dose: 100 mls/hr Thiamine HCl 200 mg/ Sodium (Chloride) 102 mls @ 204 mls/hr IV TID [facility] Stop: 12/04/22 21:59 Last Admin: 12/05/21 09:17 Dose: 204 mls/hr Levofloxacin (Levaquin) 750 mg in 150 mls @ 100 mls/hr IV Q48H [facility] Last Admin: 12/05/21 09:17 Dose: 100 mls/hr Levothyroxine Sodium (Levothyroxine 50 Mcg Tablet) 50 mcg PO DAILY.0630 CINT[facility] Stop: 12/05/22 06:29 Last Admin: 12/05/21 06:55 [...] 650 Mg Tablet) 1,300 mg PO TID.WITH.MEALS [facility] Stop: 12/04/22 13:34 Last Admin: 12/05/21 [...] Cloudy A Urine pH 5.5 Ur Specific [place] 1.013 Urine Protein 30 H Urine Glucose [...] <Electronically signed by MD Nilesh Oakley> 12/05/21 145 [facility] Work Phone: [phone]) 644-334508-27-2022 History and physical note Author Hong Jewell [facility] December 04, 2021 9:07pm Note Date/Time December 04, 2021 9: 07pm [facility] [address] [place] [address] Hospitalist H&P Signed Patient: Orestes Alvares MR#: [id number] : 1965 Acct:[id number] Age/Sex: 56 / F Adm Date: 2 Loc: 3T Room: [address] [place] [address] Type: ADM IN Attending Dr: Hong Jewell DO Copies to: Segundo Rawls, DO Hong Jewell, DO~ HPI DATE OF EXAMINATION: 12/04/21 CHIEF COMPLAINT: weakness, passing out, lightheadedness. HISTORY OF PRESENT ILLNESS: This is a 56-year-old woman who presented to the [place] emergency room yesterday evening with complaints of [...] supposed to come get established with a ornamental metalwork designer in [place]. She also was supposed to see a envelope stamping machine operator because she has probably rheumatoid arthritis and she has had a rash on her back for many decades. She has a fullness in the supraclavicular regions on both right and the left side. She says that the [facility] told her that these were [...] the age of 17. I gave her [id number] history. In terms of alcohol use she [...] % (Auto) 13.0 % (.) 12/04/21 11:47 [place] % (Auto) 13.9 % (.) 12/04/21 11:47 Eos % (Auto) 1.2 % (.) 12/04/21 11:47 Baso % (Auto) 0.4 % (.) 12/04/21 11:47 Neut # (Auto) 4.5 x10E3/uL (1.8-7.7) 12/04/21 11:47 Lymph # (Auto) 0.8 x10E3/uL (1.00-4.8) L 12/04/21 11:47 [place] # (Auto) 0.9 x10E3/uL (0.0-0.8) H 12/04/21 [...] 2031 Signed By: <Electronically signed by Hong Jewell, > 12/04/212106 [facility] Work Phone: Evaluation note* Diagnosis Onset [...] acute Urethral stenosis acute Vasovagal syncope acute [facility] Work Phone: Evaluation noteNo assessment information available [facility] Work Phone: Evaluation note* Diagnosis Onset Date Resolution Status GERD (gastroesophageal reflux disease) acute Hypertension acute Hypomagnesemia acute Hypothyroid acute Lupus acute Paroxysmal atrial fibrillation with RVR acute Rheumatoid arthritis acute Stress-induced cardiomyopathy acute Type 2 myocardial infarction acute [facility] Work Phone: Evaluation note* Diagnosis Onset [...] cardiomyopathy acute Type 2 myocardial infarction acute [facility] Work Phone: Evaluation note* Diagnosis Anxiety about treatment- [facility] Diagnosis Anxiety about treatment- Primary [facility] Diagnosis Anxiety disorder, unspecified type- Primary documented in this encounter [facility]* Diagnosis Pain- Primary Generalized pain [facility] this [facility] general [...] History SEE ABOVE Hospitalization History DEHYDRATION 12/2021 [facility] Discharge instructions Additional Instructions Dietary recommendations: - Magic cup (or equivalent) [facility] Work Phone: Hospital Discharge instructions Additional Instructions Follow-up with your primary care doctor Return to ED if develop worsening symptoms or concerns Take your medications as [facility] Work Phone: Hospital Discharge instructionsAmbulatory Orders* Referral to Cardiology Location: None Selected * Referral to Rheumatology Location: None Selected [facility] Work Phone: Hospital Discharge instructionsAmbulatory Orders* Referral to Cardiology Location: None Selected [facility] Work Phone: InstructionsNot on filedocumented in this encounter [facility]Not on filedocumented in this encounter [facility] Summary Purpose Family History No Family History [...] and content) DATE CREATED AUTHOR 09/29/2017 [facility] DATE CREATED AUTHOR AUTHOR'S ORGANIZ ATION 01/07/2022 [facility] DATE CREATED AUTHOR AUTHOR'S ORGANIZ ATION 02/02/2022 [facility] DATE CREATED AUTHOR AUTHOR'S ORGANIZ ATION 06/15/2024 [facility] DATE CREATED AUTHOR AUTHOR'S ORGANIZ ATION 06/19/2024 [facility] DATE CREATED AUTHOR AUTHOR'S ORGANIZ ATION 06/21/2024 [facility] DATE CREATED AUTHOR AUTHOR'S ORGANIZ ATION 09/11/2024 [facility] DATE CREATED AUTHOR AUTHOR'S ORGANIZ ATION 09/13/2024 [facility] Care Teams (unrecognized sec tion and content) Team Status: Inactive Member Role Status Dates Segundo Rawls DO Primary Care Provider Active Hong Jewell , DO Admit Provider, Attending Pr ovider Active [...] Member Role Status Dates Katie Velasquez APRN LINE LEAD-C Primary Care Provider Active Team Status: Inactive Member Role Status Dates Katie Velasquez APRN LINE LEAD-C Primary Care Provider, Attending Provider Active Start: September 28, 2023 End: September 28, 2023 Team Status: Inactive Member Role Status Dates Katie Velasquez APRN LINE LEAD-C Primary Care Provider, Attending Provider Active Start: December 27, 2023 End: December 27, 2023 Team Status: Inactive Member Role Status Dates Katie Velasquez APRN LINE LEAD-C Primary Care Provider, Attending Provider Active Start: February 19, 2024 End: February 19, 2024 Team Status: Active Member Role Status Dates PHYSICIAN NO FAMILY Primary Care Provider Active Team Status: Active Member Role Status Dates Katie Velasquez APRN LINE LEAD-C Primary Care Provider Active Start: April End: April 28, 2024 Owen Zamorano DO Attending Provider Active Sta rt: April 22, 2024 End: April 28, 2024 Fco Saavedra MD Referring Provider Active Sta rt: April 22, 2024 End: April 28, 2024 Team Status: Inactive Member Role Status Dates Katie Velasquez APRN LINE LEAD-C Primary Care Provider Active Start: June 12, 2024 End: June 12, 2024 Sheryl Santamaria DO Attending Provider Active Sta rt: June 12, 2024 End: June 12, 2024 Team Status: Active Member Role Status Dates Katie Velasquez APRN LINE LEAD-C Primary Care Provider, Attending Provider Active Start: June 12, 2024 Team Status: Active Member Role Status Dates PHYSICIAN NO FAMILY Primary Care Provider Active Start: June 13, 2024 Fco Saavedra MD Attending Provider Active Sta rt: June 13, 2024 Motor Vehicles Supervisor Relationship Specialty Start Date End Date Katie Velasquez NP [address] [place] [place] [address] PCP - General Family Medicine 01/16/24 Motor Vehicles Supervisor Relationship Specialty Start Date End Date Katie Velasquez NP [address] [place] [address] PCP - General Family Medicine 01/16/24 Motor Vehicles Supervisor Relationship Specialty Start Date End Date Katie Velasquez NP [address] [place] [address] PCP - General Family Medicine 01/16/24 Motor Vehicles Supervisor Relationship Specialty Start Date End Date Katie Velasquez NP [address] [facility] [place] [address] PCP - General Family Medicine 01/16/24 Goals [...] BE BASED ON THE PRIMARY CLINICAL RECORDS. [employer] [facility]. provides no warranty or guarantee of the accuracy or completeness of information in this document.
--- NOTE | 2024-09-16 21:45 | XR_ITS ---
[facility] [place] [facility] [id number] Patient Name: ORESTES LOPEZ MRN: [id number] date: 1965 Sex: F Assigned Patient Location: ER Current Patient Location: ED.MAIN Accession/Order Number: [id number] Exam Date: 09/17/2024 06:36 Report Date: 09/17/2024 06:38 At the request of: ISI JONES MD Procedure: XR chest 1V Plain film chest Single view HISTORY: Hypotensive. Hypoxia. COMPARISON: 06/13/2024 FINDINGS: SUPPORT DEVICES: None POSTSURGICAL CHANGES: Dialysis catheter tip overlies the SVC/right atrial junction. HEART: Cardiomegaly. PULMONARY TC: Hilar vascular congestion. MEDIASTINUM: Unremarkable LUNGS AND PLEURA: Perihilar and basilar pleural-parenchymal changes. No pneumothorax. BONY STRUCTURES: Intact ADDITIONAL FINDINGS None XR/XR chest 1V IMPRESSION: CHF findings with small pleural effusions. Impression dictated by: Zhen Bunch M.D. 09/17/2024 6:38 AM Dictation Location: [facility] Electronically authenticated by: [id number] Y Date: 09/17/2024 06:38
[2024-09-16 22:00] LABS: Hemoglobin 7.6 g/dL (12.0-16.0); Mean Corpuscular HGB Conc 32.9 g/dL (29.9-35.2); Mean Corpuscular Hemoglobin 31.4 pg (26.7-34.0); Mean Corpuscular Volume 95.5 fL (81.0-99.0); Mean Platelet Volume 9.1 fL (9.5-13.5); Platelet Count 214 10^3/uL (150-450); Red Blood Count 2.42 10^6/uL (4.20-5.40); Red Cell Distribution Width 17.9 % (11.0-15.0); White Blood Count 20.4 10^3/uL (4.0-11.0)
--- NOTE | 2024-09-16 22:14 | PC.NURSE ---
portable XR at bedside at this time.
[2024-09-16 22:15] LABS: Alanine Aminotransferase 19 U/L (14-59); Albumin Globulin Ratio 0.8; Albumin Level 2.9 g/dL (3.4-5.0); Alkaline Phosphatase 51 U/L (46-116); Aspartate Amino Transferase 31 U/L (15-37); BUN Creatinine Ratio 11.5; Bilirubin Total 0.5 mg/dL (0.2-1.0); Calcium 9.5 mg/dL (8.5-10.1); Chloride 90 mmol/L (98-107); Estimated GFR (African America 16 (>=60 mL/min/1.73m^2); Estimated GFR (Non-African Ame 13 (>=60 mL/min/1.73m^2); Globulin 3.5 g/dL; Glucose 82 mg/dL (74-106); Sodium 128 mmol/L (136-145); Total Protein 6.4 g/dL (6.4-8.2)
[2024-09-16 22:23] LABS: Hematocrit 23.1 % (36.0-48.0); Lactate/Lactic Acid 4.4 mmol/L (0.4-2.0)
[2024-09-16 22:24] LABS: Troponin I High Sensitivity 140.1 pg/mL (4.0-51.3)
[2024-09-16 22:25] LABS: Band Neutrophils Absolute 1.8 10^3/uL (0.0-0.3); Monocytes Absolute Manual 1.02 10^3/uL (0.30-0.80); Segmented Neut Absolute Manual 17.54 10^3/uL (1.4-6.5)
[2024-09-16] MEDS: ONDANSETRON PF 4 MG/2 ML VIAL IV (22:37)
[2024-09-16] MEDS: PIPERACILLIN SODIUM/TAZOBACTAM 3.375 GM in 0.9 % SODIUM CHLORIDE 50 ML IV (22:59)
[2024-09-16] MEDS: VANCOMYCIN HCL 1,000 MG in 0.9 % SODIUM CHLORIDE 500 ML 250 MG IV (23:35)
[2024-09-16 23:55] LABS: Bilirubin Urine NEGATIVE (NEGATIVE); Blood Urine NEGATIVE (NEGATIVE); Clarity Urine CLEAR (CLEAR); Color Urine YELLOW (YELLOW); Glucose Urine UA NEGATIVE (NEGATIVE); Ketones Urine TRACE mg/dL (NEGATIVE); Leukocyte Esterase Urine TRACE (NEGATIVE); Nitrite Urine NEGATIVE (NEGATIVE); Protein Urine 100 mg/dL (NEG/TRACE); Urobilinogen Urine 0.2 EU/dL (0.2-1.0); pH Urine 5.5 (5.0-9.0)
[2024-09-16] MEDS: MIDODRINE HCL 5 MG TABLET 10 MG PO (23:58)
[2024-09-17] VITALS: BP 74/44; PULSE 76; O2SAT 95
[2024-09-17 00:02] LABS: Amorphous Sediment Urine RARE; Bacteria Urine TRACE #/HPF (NONE SEEN); Cast Seen? NONE SEEN #/LPF (NONE SEEN); Crystals Seen? Seen #/HPF (None Seen); Mucus Urine NONE SEEN (NONE SEEN); RBC Urine NONE SEEN #/HPF (0-2); Squamous Epithelial Cell Urine RARE #/LPF (NONE/RARE); Transitional Epi Cells Urine RARE #/LPF (NONE SEEN); Urine Culture Indicated NO
[2024-09-17 00:10] VITALS: BP 67/37; PULSE 73; O2SAT 97
[2024-09-17 00:20] VITALS: BP 70/39; PULSE 72
[2024-09-17 00:30] VITALS: BP 72/44; PULSE 72
[2024-09-17 00:38] VITALS: TEMP 36.7
[2024-09-17 23:13] LABS: A. calcoaceticus-baumannii Cpx NOT DETECTED (NOT DETECTE); Bacteroides fragilis NOT DETECTED (NOT DETECTE); Candida albicans NOT DETECTED (NOT DETECTE); Candida auris NOT DETECTED (NOT DETECTE); Candida glabrata NOT DETECTED (NOT DETECTE); Candida krusei NOT DETECTED (NOT DETECTE); Candida parapsilosis NOT DETECTED (NOT DETECTE); Candida tropicalis NOT DETECTED (NOT DETECTE); Cryptococcus neoformans/gattii NOT DETECTED (NOT DETECTE); Enterobacter cloacae complex NOT DETECTED (NOT DETECTE); Enterobacterales NOT DETECTED (NOT DETECTE); Enterococcus faecalis NOT DETECTED (NOT DETECTE); Enterococcus faecium NOT DETECTED (NOT DETECTE); Haemophilus influenzae NOT DETECTED (NOT DETECTE); Klebsiella aerogenes NOT DETECTED (NOT DETECTE); Klebsiella pneumoniae group NOT DETECTED (NOT DETECTE); Listeria monocytogenes NOT DETECTED (NOT DETECTE); Neisseria meningitidis NOT DETECTED (NOT DETECTE); Proteus spp. NOT DETECTED (NOT DETECTE); Pseudomonas aeruginosa NOT DETECTED (NOT DETECTE); Salmonella spp. NOT DETECTED (NOT DETECTE); Serratia marcescens NOT DETECTED (NOT DETECTE); Staphylococcus epidermidis NOT DETECTED (NOT DETECTE); Staphylococcus lugdunensis NOT DETECTED (NOT DETECTE); Staphylococcus spp. NOT DETECTED (NOT DETECTE); Stenotrophomonas maltophilia NOT DETECTED (NOT DETECTE); Streptococcus agalactiae NOT DETECTED (NOT DETECTE); Streptococcus pneumoniae NOT DETECTED (NOT DETECTE); Streptococcus pyogenes NOT DETECTED (NOT DETECTE); Streptococcus spp. NOT DETECTED (NOT DETECTE)
[2024-09-18 00:23] LABS: Source BLOOD
== END 2024-09-17 01:02 | disposition short-term general hospital (02) ==
PROVIDERS: Emergency Provider Internal Medicine
DX: A41.9 Sepsis, unspecified organism (principal); R09.02 Hypoxemia; Z99.2 Dependence on renal dialysis; R79.89 Other specified abnormal findings of blood chemistry; R53.1 Weakness; Z66 Do not resuscitate; F17.200 Nicotine dependence, unspecified, uncomplicated; I95.9 Hypotension, unspecified
CPT/HCPCS: 36415; 71045; 80053; 81001; 83605; 84484; 85007; 85027; 87040; 87077; 87150; 87186; 93005; 96365; 96367; 96375; 99285; J2405; J2543; J3370

== ENCOUNTER 2025-01-13 16:11 | Emergency (ER) | payer OTHER, MEDICAID, SELFPAY ==
[2025-01-13 16:16] VITALS: BP 142/90; PULSE 78; TEMP 36.9; O2SAT 100; BMI 24.2
--- OUTSIDE RECORDS SUMMARY | 2025-01-13 16:17 | XMS_ITS | Clinical Summary ---
Author Organization [facility] Address [address] [place] [address] Phone Care Team Providers Care Superior Court Clerk Name Role Phone Unavailable Primary Care [...]
--- OUTSIDE RECORDS SUMMARY | 2025-01-13 16:17 | XMS_ITS | Encounter Summary ---
Author Organization [facility] Address [address] [place] [address] Care Team Providers Care Sql Server Dba Developer Name Role Phone Katie Velasquez RETAIL SERVICE TECHNICIAN Primary Care Provider Encounter Details Date Type Department Care Team (Late st Contact Info) Description 07/18/2024 Abstract ESVIN Andrei [facility] [address] [facility] [address] [place] [address] Unallocated, [facility] Provider, [address] [place] [address] Social History Tobacco Use Types Packs/Day Years [...] on filedocumented in this encounter Care Teams Sql Server Dba Developer Relationship Specialty Start Date End Date Katie Velasquez NP [address] [facility] [place] [address] [place] [address] PCP - General Family Medicine 01/16/24 documented as of this encounter
--- OUTSIDE RECORDS SUMMARY | 2025-01-13 16:17 | XMS_ITS ---
Author Organization [facility] Address [address] [place] [address] Care Team Providers Care Instructor Apparel Manufacture Name Role Phone Unavailable Unavailable Unavailable Allergies, Adverse Reactions, Alerts Allergy Name Allergy Type Status Severity Reaction(s) Onset Date Inactive Date Treating Clinician Comments predniSONE Allergy Active Unknown 2024-12 17:05:3 8 Cephalexin Allergy Active Unknown 2024-12 17:05:2 3 Problems This patient has no known problems. Procedures Procedure Date / Time Performed Performing Clinician Pooja ce Details Central Venous Catheter (CVC) 2024-06-21 04:00:00 Access Site Chest (Right) Access Use Start Date 2024-12-31 04:00:0 0 Encounters No encounter information to report
--- OUTSIDE RECORDS SUMMARY | 2025-01-13 16:17 | XMS_ITS | Encounter Summary ---
Author Organization [facility] Address [address] [place] [address] Care Team Providers Care Garbage Depot Worker Name Role Phone AdamKatie carter PLANTING MACHINE OPERATOR Primary Care Provider Encounter Details Date Type Department Care Team (Late st Contact Info) Description 09/16/2024 External Result Encounter [facility] [address] [place] [address] [place] [phone] Fatimah Andres, PLANTING MACHINE OPERATOR [address] [place], [place] [id number] Social History Tobacco Use Types Packs/Day Years Used Date Smoking Tobacco: Never Assessed Comments Unknown Sex and Gender Information Value Date Recorded Sex Assigned at Not on file Legal Sex Female 7:05 PM EDT Gender Identity Not on file Sexual Orientation Not on file documented as of this encounter Plan of Treatment Not on file documented as of this encounter Procedures Procedure Name Priority Date/Time Associated Diagnosis Comments CT WRIST RIGHT WO IV CONTRAST 09/16/2024 11:17 PM EDT documented in this encounter Results * CT wrist right wo IV contrast (09/16/2024 11:17 PM EDT) Anatomical Region Laterality Modality Upper Extremities, Wrist Right Compute d Tomography 09/16/2024 11:1 7 PM EDT Narrative 09/16/2024 11:16 PM EDT THIS EXAM WAS PERFORMED AT [facility] CT RIGHT WRIST WITHOUT CONTRAST COMPARISON: None. HISTORY: Hematoma; Lump of right wrist. Right wrist pain. TECHNIQUE: Unenhanced axial images of the right wrist obtained with sagittal and coronal 2- D reformatted images. Automatic exposure control (AEC) was utilized. Findings: There is a heterogeneous masslike abnormality in the volar soft tissues of the lateral aspect of the distal forearm. The mass measures 4.6 x 3.5 x 6.1 cm. The mass results in volar and lateral displacement of the carpi radialis tendon, and also results in mass effect with dorsal and medial displacement of the median nerve and flexor digitorum tendons. The mass abuts the volar cortex of the distal radial shaft without associated bone destruction or periosteal reaction. IMPRESSION: Heterogeneous masslike abnormality measuring up to 6.1 cm in the volar soft tissues of the distal forearm. This is most likely a hematoma given the patient's history. However, neoplasm is not excluded and MRI of the wrist with and without contrast recommended. All CT scans at this facility use dose modulation, iterative reconstruction, and/or weight based dosing when appropriate to reduce radiation dose to as low as reasonably achievable. Finalized by Antoine Martinez MD on 09/16/2024 11:16 PM Procedure Note Radiology, Radiologist, - 09/16/2024 THIS EXAM WAS PERFORMED AT [facility] CT RIGHT WRIST WITHOUT CONTRAST COMPARISON: None. HISTORY: Hematoma; Lump of right wrist. Right wrist pain. TECHNIQUE: Unenhanced axial images of the right wrist obtained withsagittal and coronal 2-D reformatted images. Automatic exposure control(AEC) was utilized. Findings: There is a heterogeneous masslike abnormality in the volar soft tissues ofthe lateral aspect of the distal forearm. The mass measures 4.6 x 3.5 x6.1 cm. The mass results in volar and lateral displacement of the carpiradialis tendon, and also results in mass effect with dorsal and medial displacement of the median nerve and flexor digitorum tendons. The massabuts the volar cortex of the distal radial shaft without associated bonedestruction or periosteal reaction. IMPRESSION: Heterogeneous masslike abnormality measuring up to 6.1 cm in the volarsoft tissues of the distal forearm. This is most likely a hematoma giventhe patient's history. However, neoplasm is not excluded and MRI of thewrist with and without contrast recommended. All CT scans at this facility use dose modulation, iterativereconstruction, and/or weight based dosing when appropriate to reduceradiation dose to as low as reasonably achievable. Finalized by Antoine Martinez MD on 09/16/2024 11:16 PM us Fatimah Andres PLANTING MACHINE OPERATOR IMG CT PROCEDURES Final Result documented in this encounter Visit Diagnoses Not on filedocumented in this encounter Care Teams Garbage Depot Worker Relationship Specialty Start Date End Date Katie Velasquez NP [address] [place] [address] PCP - General Family Medicine 01/16/24 documented as of this encounter
--- OUTSIDE RECORDS SUMMARY | 2025-01-13 16:17 | XMS_ITS | Encounter Summary ---
Author Organization [facility] Address [address] [facility] [place] [address] Care Team Providers Care Answering Service Telephone Operator Name Role Phone Katie Velasquez NP Primary Care Provider Encounter Details Date Type Department Care Team (Late st Contact Info) Description 01/07/2025 Abstract [facility] [address] [facility] [address] [place] [id number] Katie Velasquez NP [address] [place] [address] Social History Tobacco Use Types Packs/Day Years [...] on filedocumented in this encounter Care Teams Answering Service Telephone Operator Relationship Specialty Start Date End Date Katie Velasquez NP [address] [place], [place] [id number] PCP - General Family Medicine 01/16/24 documented as of this encounter
--- OUTSIDE RECORDS SUMMARY | 2025-01-13 16:17 | XMS_ITS | Encounter Summary ---
Author Organization [facility] Address [address] [place] [address] Care Team Providers Care Flavor Maker Name Role Phone Katie Velasquez FLEX O WRITER OPERATOR Primary Care Provider Encounter Details Date Type Department Care Team (Late st Contact Info) Description 09/22/2024 Results Follow-Up [facility] [address] [place] [address] Fatimah Andres, [place] [address] [place], [place] [phone] CT wrist right wo IV contrast Social History Tobacco Use Types Packs/Day Years [...] on filedocumented in this encounter Care Teams Flavor Maker Relationship Specialty Start Date End Date Katie Velasquez NP [address] [facility] [place] [address] [place] [address] PCP - General Family Medicine 01/16/24 documented as of this encounter
--- OUTSIDE RECORDS SUMMARY | 2025-01-13 16:17 | XMS_ITS | Clinical Summary ---
Author Organization [employer] Address [id number] [address] [place] [address] Care Team Providers Care Hearing Impaired Teacher Name Role Phone Alana Miller APRN-HOG RAISER Primary Care Provider Allergies No known active [...] towards discharge Medical Devices Not on file Insurance [place]ID [place] [employer] Advance Directives * DNRCCA DNI (Latest Code Status on File) Date Activated Date Inactivated Comments 06/25/2024 2:15 PM 07/03/2024 7:47 PM * DNR Comfort Care Arrest (DNR-CCA) [place] Date Activated Date Inactivated Comments 06/25/2024 2:07 PM 06/25/2024 2:15 PM * Full Code Date Activated Date Inactivated Comments 06/13/2024 8:54 PM 06/25/2024 2:07 PM Care Teams Hearing Impaired Teacher Relationship Specialty Start Date End Date Alana Miller, CROSSING TENDER-HOG RAISER [address] [facility] [address] [place] [address] PCP - General Nurse Practitioner 09/12/24
--- OUTSIDE RECORDS SUMMARY | 2025-01-13 16:17 | XMS_ITS | Clinical Summary ---
Author Organization [facility] Address [address] [place] [address] Care Team Providers Care Provider Relations Representative Name Role Phone Katie Velasquez ELEVATING GRADER OPERATOR Primary Care Provider Medications LORazepam (Ativan) [...] to 14 days 42 tablet 5 Active Encounters Date Type Department Care Team Description 01/07/2025 Abstract [facility] [address] [facility] [address] [place] [address] Katie Velasquez, ELEVATING GRADER OPERATOR from Last 3 Months Social History Tobacco Use Types Packs/Day Years Used Date Smoking Tobacco: Never Assessed Comments Unknown Sex and Gender Information Value Date Recorded Sex Assigned at Not on file Legal Sex Female 7:05 PM EDT Gender Identity Not on file Sexual Orientation Not on file Plan of Treatment Not on file Insurance [employer] [facility] Care Teams Provider Relations Representative Relationship Specialty Start Date End Date Katie Velasquez NP [facility] [place] [address] PCP - General Family Medicine 01/16/24
--- OUTSIDE RECORDS SUMMARY | 2025-01-13 16:17 | XMS_ITS ---
Author Organization [employer] Address [id number] [address] [place] [address] Care Team Providers Care Greenhouse Assistant Name Role Phone Alana Miller APRN-CREDIT AND COLLECTIONS REPRESENTATIVE Primary Care Provider Dialysis Access Sites Type Status Location Placement Date Removal Da te Hemodialysis Catheter Double 07/03/24 Cuffed Right Internal Jugular Active Right Neck (side) - Anterior 07/03/2024 Hemodialysis Catheter Triple 06/14/24 Right Internal Jugular Inactive Right Neck (side) - Anterior 06/14/2024 07/03/2024 Allergies No known active allergies Medications ELIQUIS [...] due to kidney failure. 0.3 mL 5 Active sennosides-docu sate sodium (SENOKOT-S) 8.6-50 mg Take 2 tablets by mouth as needed for constipation. 30 tablet Active ipratropium-alb uteroL (DUONEB) 0.5 mg-3 mg(2.5 mg base)/3 mL nebulizerIndica tions:Acute respiratory failure with hypoxia ([facility]) Inhale 3 mL by nebulization every 4 [...]
--- OUTSIDE RECORDS SUMMARY | 2025-01-13 16:17 | XMS_ITS | Clinical Summary ---
Author Organization [facility] Address [address] [place], [place] [id number] Care Team Providers Care Recycling Center Operator Name Role Phone House Sr., DO Segundo Patton Primary Care Provider + Social History Tobacco [...] 2013 Shingrix Vaccine (1 of 2) 2013 Influenza Vaccine (#1) 2024 RSV Vaccine (1 - 1-dose 75+ series) [address] [facility] MEDICAID Care Teams Recycling Center Operator Relationship Specialty Start Date End Date Segundo Rawls Sr., DO PCP - General Family Medicine 04/18/18
--- OUTSIDE RECORDS SUMMARY | 2025-01-13 16:17 | XMS_ITS | Encounter Summary ---
Author Organization [facility] Address [id number] [address] [place] [address] Care Team Providers Care Power Shovel Operator Name Role Phone Paul, Alana Boone SALES AND MARKETING ASSOCIATE-ELECTRONIC WIRER Primary Care Provider Encounter Details Date Type Department Care Team (Late st Contact Info) Description 06/14/2024 Orders Only [facility] [address] [place] [phone] Transcribe, Orders Support User Pain (Primary [...] pain documented in this encounter Care Teams Power Shovel Operator Relationship Specialty Start Date End Date Alana Miller, SALES AND MARKETING ASSOCIATE-ELECTRONIC WIRER [address] [place] [address] PCP - General Nurse Practitioner 09/12/24 documented as of this encounter
--- OUTSIDE RECORDS SUMMARY | 2025-01-13 16:17 | XMS_ITS | Patient Health Record ---
Author Organization [facility] Address [address] [place] [address] [address] [place] [address] Care Team Providers Care Policy Writer Sales Name Role Phone NISSA RAFAEL Unavailable [phone] EKATERINA ROSALES Unavailable [phone] SANJANA DOUGHERTY Unavailable [phone] Reason For Referral No Information Problems Problem Type SNOMED Code ICD Code Onset Dates Problem Status W/U Status Risk Notes Problem Chronic respiratory failure (78306478) Chronic respiratory failure with hypercapnia (J96.12) Active confirmed Problem Pulmonary hypertension (17947494) Pulmonary hypertension, unspecified (I27.20) Active confirmed Problem Muqlp-zl-jovpxya hypercapnic respiratory failure (disorder) (2203508649099) Acute on chronic respiratory failure with hypercapnia (J96.22) Active confirmed Problem Congestive heart failure (23345757) Congestive heart failure (I50.9) Active confirmed Problem Chronic respiratory failure (52777239) Chronic hypoxic respiratory failure (J96.11) Active confirmed Problem Zgvvu-sl-tidkcnr hypoxemic respiratory failure (disorder) (326921445902333 00) Acute on chronic hypoxic respiratory failure (J96.21) Active confirmed Encounters Encounter Location Date Provider Diagnosis [address] [id number] 10/27/2024 RAFAEL AZAR Chronic hypoxic respiratory failure J96.11 ; Chronic respiratory failure with hypercapnia J96.12 ; Pulmonary hypertension, unspecified I27.20 and Congestive heart failure I50.[address] [id number] 07/04/2024 EKATERINA ROSALES Respiratory failur e, unspecified, unspecified whether with hypoxia or hypercapnia J96.90 and Pulmonary hypertension, unspecified I27.[address] [id number] 07/06/2024 RAFAEL AZAR Respiratory failur e, unspecified, unspecified whether with hypoxia or hypercapnia J96.90 and Pulmonary hypertension, unspecified I27.20 [place] [address] [id number] 07/09/2024 RAFAELJuani AZAR Respiratory failur e, unspecified, unspecified whether with hypoxia or hypercapnia J96.90 and Pulmonary hypertension, unspecified I27.20 [place] [address] [id number] 07/11/2024 SANJANA DOUGHERTY Respiratory failur e, unspecified, unspecified whether with hypoxia or hypercapnia J96.90 and Pulmonary hypertension, unspecified I27.[address] [place] [address] [place] [id number] 07/13/2024 RAFAEL AZAR Respiratory failur e, unspecified, unspecified whether with hypoxia or hypercapnia J96.90 and Pulmonary hypertension, unspecified I27.[address] [place] [address] [place] [address] [id number] 07/16/2024 EKATERINA ROSALES Respiratory failur e, unspecified, unspecified whether with hypoxia or hypercapnia J96.90 and Pulmonary hypertension, unspecified I27.[address] [place] [address] [place] [address] [id number] 07/18/2024 EKATERINA ROSALES Respiratory failur e, unspecified, unspecified whether with hypoxia or hypercapnia J96.90 and Pulmonary hypertension, unspecified I27.[address] [place] [address] [place] [address] [id number] 07/20/2024 RAFAEL AZAR Respiratory failur e, unspecified, unspecified whether with hypoxia or hypercapnia J96.90 and Pulmonary hypertension, unspecified I27.20 [place] [address] [id number] 07/23/2024 EKATERINA ROSALES Acute on chronic hypoxic respiratory failure J96.21 ; Acute on chronic respiratory failure with hypercapnia J96.22 ; Pulmonary hypertension, unspecified I27.20 and Congestive heart failure I50.[address] [place] [address] [place] [id number] 07/25/2024 EKATERINA ROSALES Acute on chronic hypoxic respiratory failure J96.21 ; Acute on chronic respiratory failure with hypercapnia J96.22 ; Pulmonary hypertension, unspecified I27.20 and Congestive heart failure I50.9 [place] [address] [id number] 07/27/2024 RAFAEL AZAR Acute on chronic hypoxic respiratory failure J96.21 ; Acute on chronic respiratory failure with hypercapnia J96.22 ; Pulmonary hypertension, unspecified I27.20 and Congestive heart failure I50.9 [place] [address] [id number] 07/30/2024 KELCEE ROSALES Acute on chronic hypoxic respiratory failure J96.21 ; Acute on chronic respiratory failure with hypercapnia J96.22 ; Pulmonary hypertension, unspecified I27.20 and Congestive heart failure I50.9 [place] [address] [id number] 08/01/2024 KELCEE ROSALES Acute on chronic hypoxic respiratory failure J96.21 ; Acute on chronic respiratory failure with hypercapnia J96.22 ; Pulmonary hypertension, unspecified I27.20 and Congestive heart failure I50.9 [place] [address] [id number] 08/03/2024 KELCEE ROSALES Acute on chronic hypoxic respiratory failure J96.21 ; Acute on chronic respiratory failure with hypercapnia J96.22 ; Pulmonary hypertension, unspecified I27.20 and Congestive heart failure I50.9 [place] [address] [id number] 08/06/2024 KELCEE ROSALES Acute on chronic hypoxic respiratory failure J96.21 ; Acute on chronic respiratory failure with hypercapnia J96.22 ; Pulmonary hypertension, unspecified I27.20 and Congestive heart failure I50.9 [place] [address] [id number] 08/08/2024 KELCEE ROSALES Acute on chronic hypoxic respiratory failure J96.21 ; Acute on chronic respiratory failure with hypercapnia J96.22 ; Pulmonary hypertension, unspecified I27.20 and Congestive heart failure I50.9 [place] [address] [id number] 08/10/2024 KELCEE ROSALES Acute on chronic hypoxic respiratory failure J96.21 ; Acute on chronic respiratory failure with hypercapnia J96.22 ; Pulmonary hypertension, unspecified I27.20 and Congestive heart failure I50.9 [place] [address] [id number] 08/17/2024 RAFAEL AZAR Acute on chronic hypoxic respiratory failure J96.21 ; Acute on chronic respiratory failure with hypercapnia J96.22 ; Pulmonary hypertension, unspecified I27.20 and Congestive heart failure I50.9 [place] [address] [id number] 08/24/2024 RAFAEL AZAR Acute on chronic hypoxic respiratory failure J96.21 ; Acute on chronic respiratory failure with hypercapnia J96.22 ; Pulmonary hypertension, unspecified I27.20 and Congestive heart failure I50.9 [place] [address] [id number] 09/02/2024 RAFAEL AZAR Acute on chronic hypoxic respiratory failure J96.21 ; Acute on chronic respiratory failure with hypercapnia J96.22 ; Pulmonary hypertension, unspecified I27.20 and Congestive heart failure I50.9 [place] [address] [id number] 09/05/2024 [facility] Acute on chronic hypoxic respiratory failure J96.21 ; Acute on chronic respiratory failure with hypercapnia J96.22 ; Pulmonary hypertension, unspecified I27.20 and Congestive heart failure I50.9 [place] [address] [id number] 09/08/2024 RAFAEL AZAR Acute on chronic hypoxic respiratory failure J96.21 ; Acute on chronic respiratory failure with hypercapnia J96.22 ; Pulmonary hypertension, unspecified I27.20 and Congestive heart failure I50.9 [place] [address] [id number] 09/10/2024 [facility] Chronic hypoxic respiratory failure J96.11 ; Chronic respiratory failure with hypercapnia J96.12 ; Pulmonary hypertension, unspecified I27.20 and Congestive heart failure I50.9 [place] [address] [id number] 09/15/2024 RAFAEL AZAR Chronic hypoxic respiratory failure J96.11 ; Chronic respiratory failure with hypercapnia J96.12 ; Pulmonary hypertension, unspecified I27.20 and Congestive heart failure I50.9 [place] [address] [id number] 09/29/2024 RAFAEL AZAR Chronic hypoxic respiratory failure J96.11 ; Chronic respiratory failure with hypercapnia J96.12 ; Pulmonary hypertension, unspecified I27.20 and Congestive heart failure I50.9 [place] [address] [id number] 10/05/2024 RAFAEL AZAR Chronic hypoxic respiratory failure J96.11 ; Chronic respiratory failure with hypercapnia J96.12 ; Pulmonary hypertension, unspecified I27.20 and Congestive heart failure I50.[address] [id number] 10/18/2024 RAFAEL AZAR Chronic hypoxic respiratory failure J96.11 ; Chronic respiratory failure with hypercapnia J96.12 ; Pulmonary hypertension, unspecified I27.20 and Congestive heart failure I50.[address] [id number] 11/10/2024 RAFAEL AZAR Chronic hypoxic respiratory failure J96.11 ; Chronic respiratory failure with hypercapnia J96.12 ; Pulmonary hypertension, unspecified I27.20 and Congestive heart failure I50.[address] [place] [address] [place] [address] [id number] 11/17/2024 RAFAEL AZAR Chronic hypoxic respiratory failure J96.11 ; Chronic respiratory failure with hypercapnia J96.12 ; Pulmonary hypertension, unspecified I27.20 and Congestive heart failure I50.[address] [id number] 11/24/2024 RAFAEL AZAR Chronic hypoxic respiratory failure J96.11 ; Chronic respiratory failure with hypercapnia J96.12 ; Pulmonary hypertension, unspecified I27.20 and Congestive heart failure I50.9 [place] [address] [id number] 12/01/2024 RAFAEL AZAR Chronic hypoxic respiratory failure J96.11 ; Chronic respiratory failure with hypercapnia J96.12 ; Pulmonary hypertension, unspecified I27.20 and Congestive heart failure I50.[address] [id number] 12/14/2024 RAFAEL AZAR Chronic hypoxic respiratory failure J96.11 [...] Chronic hypoxic respiratory failure (ICD-10 - J96.11) 09/29/2024 Chronic hypoxic respiratory failure (ICD-10 - J96.11) 10/05/2024 Chronic hypoxic respiratory failure (ICD-10 - J96.11) 10/18/2024 Chronic hypoxic respiratory failure (ICD-10 - J96.11) 10/27/2024 Chronic hypoxic respiratory failure (ICD-10 - J96.11) 11/10/2024 Chronic hypoxic respiratory failure (ICD-10 - J96.11) 11/17/2024 Chronic hypoxic respiratory failure (ICD-10 - J96.11) 11/24/2024 Chronic hypoxic respiratory failure (ICD-10 - J96.11) 12/01/2024 Chronic hypoxic respiratory failure (ICD-10 - J96.11) 12/14/2024 Chronic hypoxic respiratory failure (ICD-10 - J96.11) 09/08/2024 Acute on chronic respiratory failure with hypercapnia (ICD-10 - J96.22) 12/14/2024 Chronic respiratory failure with hypercapnia (ICD-10 - J96.12) 12/01/2024 Chronic respiratory failure with hypercapnia (ICD-10 - J96.12) 11/24/2024 Chronic respiratory failure with hypercapnia (ICD-10 - J96.12) 11/17/2024 Chronic respiratory failure with hypercapnia (ICD-10 - J96.12) 11/10/2024 Chronic respiratory failure with hypercapnia (ICD-10 - J96.12) 10/27/2024 Chronic respiratory failure with hypercapnia (ICD-10 - J96.12) 10/18/2024 Chronic respiratory failure with hypercapnia (ICD-10 - J96.12) 10/05/2024 Chronic respiratory failure with hypercapnia (ICD-10 - J96.12) 09/29/2024 Chronic respiratory failure with hypercapnia (ICD-10 - J96.12) 09/15/2024 Chronic respiratory failure with hypercapnia (ICD-10 [...] 09/15/2024 Pulmonary hypertension, unspecified (ICD-10 - I27.20) 09/29/2024 Pulmonary hypertension, unspecified (ICD-10 - I27.20) 10/05/2024 Pulmonary hypertension, unspecified (ICD-10 - I27.20) 10/18/2024 Pulmonary hypertension, unspecified (ICD-10 - I27.20) 10/27/2024 Pulmonary hypertension, unspecified (ICD-10 - I27.20) 11/10/2024 Pulmonary hypertension, unspecified (ICD-10 - I27.20) 11/17/2024 Pulmonary hypertension, unspecified (ICD-10 - I27.20) 11/24/2024 Pulmonary hypertension, unspecified (ICD-10 - I27.20) 12/01/2024 Pulmonary hypertension, unspecified (ICD-10 - I27.20) 12/14/2024 Pulmonary hypertension, unspecified (ICD-10 - I27.20) 12/14/2024 Congestive heart failure (ICD-10 - I50.9) 12/01/2024 Congestive heart failure (ICD-10 - I50.9) 11/24/2024 Congestive heart failure (ICD-10 - I50.9) 11/17/2024 Congestive heart failure (ICD-10 - I50.9) 09/08/2024 Congestive heart failure (ICD-10 - I50.9) 11/10/2024 Congestive heart failure (ICD-10 - I50.9) 10/27/2024 Congestive heart failure (ICD-10 - I50.9) 10/18/2024 Congestive heart failure (ICD-10 - I50.9) 10/05/2024 Congestive heart failure (ICD-10 - I50.9) 09/29/2024 Congestive heart failure (ICD-10 - I50.9) 09/15/2024 Congestive heart failure (ICD-10 - I50.9) 09/05/2024 [...] 07/25/2024 Congestive heart failure (ICD-10 - I50.9) 07/25/2024 Other Seen in collaboration and discussed [...] plan of care with Dr. Rafael Azar 07/16/2024 Other Seen in collaboration and discussed [...] Insured Coverage Start Date Coverage End Date [employer] [place] [address] [place] [address] [id number] Juanita Redman Self - patient is the insured
--- OUTSIDE RECORDS SUMMARY | 2025-01-13 16:21 | XMS_ITS | CCD ---
Author Organization [facility] Inform ion Partnership [facility] Care Team Providers Care Pheresis Specialist Name Role Phone PHYSICIAN, DEFAULT Unavailable Unavailable PHYSICIAN, DEFAULT Unavailable Unavailable CASON, LASHA Unavailable Unavailable PHYSICIAN, DEFAULT Unavailable Unavailable PHYSICIAN, DEFAULT Unavailable Unavailable CASON, LASHA Unavailable Unavailable DO Segundo Rawls Primary Care Provider [phone] DO Hong Jewell Admit Provider DO Hong Jewell Attending Provider MD Rehan Russ Other Provider MD Nilesh Oakley Other Provider RAMONITA Persaud Other Provider Unavailable DO Gillian Romano Other Provider MD Kylah Verdugo Other Provider MD Sher Frazier Other Provider [...] ANNA, DR NEWELL Attending Unavailable STEVEN, DR ANTOINE Sheridan Consulting Unavailabl e ANNA, DR NEWELL Consulting Unavailable ROSALINDA SALMERON Consulting Unavailable CODY ALEXANDER Consulting Unavailable JUNO HERNÁNDEZ Admitting Unavailable JENNY, DR PRETTY Primary Care Unavailable AYDE, DR DENISE Sher Consulting Unavailable JUNO HERNÁNDEZ Attending Unavailable JUNO HERNÁNDEZ Consulting Unavailable DO Segundo Rawls Primary Care Provider [phone] DO Caden Jarrell Emergency Provider William Esposito Unavailable Locorb[place]ra[place] CARE TECHNICIAN, Katie Primary Care Provider LocorbacheKatie sher APRN Attending Provider [phone] Unavailable Primary Care Provider Unavailjamie e LocorbacheKatie sher APRN Primary Care Provider Sheryl Santamaria DO Attending Provider PROVIDER, UNKNOWN Attending Unavailable PROVIDER, UNKNOWN Admitting Unavailable Unavailable Primary Care Provider Unavailjamie e Locorb[place]raul BDC MANAGER, Katie A Primary Care Provider Locorbacher BDC MANAGER, Katie A Primary Care Provider LUCIANA BLISS Admitting Unavailable ANA FALK Referring Unav ailable SHARIF YU Consulting Unavailable QUINTIN FORMAN Attending Unavailable KAYLA ESTRADA Consulting Unavailable RELIEF, SINCERA SUPPORTIVE CARE AND SYMPTOM Cons ulting Unavailable JERARDO RUTH Referring Unavailable EVANGELISTA PHAM Primary Care Unavailable Katie Velasquez Admitting Unavailable Katie Velasquez Primary Care Unavailable Katie Velasquez Attending Unavailable Sheryl Santamaria Admitting Unavailable Sheryl Santamaria Attending Unavailable Katie Velasquez Primary Care Unavailable Rosalinda Alfonso Admitting Unavailable Rosalinda Alfonso Attending Unavailable NO FAMILY, PHYSICIAN Primary Care Unavailable Nilesh Oakley Consulting Unavailable KESHA CHILEL Attending KESHA Brunson Attending Echo cordon Allergies Allergy Classification Reported Allergen(s) Allergy Type Date of Onset Reaction(s) Facility (2 sources) cephalexin; Translations: [KEFLEX] Drug Allergy 4 AOF [facility] Repository (10 sources) predniSONE; Translations: [PREDNISONE] Drug Allergy 5 Swelling [facility] Repository (8 sources) Cephalexin; Translations: [cephalexin] Drug Allergy 2 Nausea, Unknown [facility] Medications Current Medications Medication Drug Class(es) Dates Sig (Normalized) Sig (Original) acetaminophen 325 mg / HYDROcodone bitartrate 5 mg oral tablet (1 source) Opioid Agonist Start: 09-09-2024 End: 10-09-2024 take 1 tablet by mouth every six hours as needed for pain and pain and pain HYDROcodone-acetamin ophen (Salix) 5-325 MG tablet Indications: Pain Take 1 [...] nebulizer Indications: Acute respiratory failure with hypoxia ([facility]) Inhale 3 mL by nebulization every [...] oral tablet (7 sources) Vitamin C Start: 09-02-2022 take 1 tablet by mouth at breakfast [...] Active docusate sodium 50 mg / sennosides, detention 8.6 mg oral tablet (1 source) Start: [...] uncomplicated] Onset: 12-21-2021 12-04-2021 Chronic Anxiety disorders (3 sources) Anxiety disorder, unspecified; Translations: [Anxiety disorder] Onset: 12-21-2021 08-26-2024 Chronic Cardiac dysrhythmias (20 sources) Atrial fibrillation; Translations: [Unspecified atrial fibrillation] Onset: 06-13-2024 12-06-2021 Chronic Chronic kidney disease (3 sources) Chronic kidney disease stage 4; Translations: [Chronic kidney disease, stage 4 (severe)] Onset: 09-17-2024 Chronic Chronic kidney disease (2 sources) Chronic kidney disease; Translations: [Chronic kidney disease, stage III (moderate)] Chronic obstructive pulmonary disease and bronchiectasis (1 source) Chronic obstructive pulmonary disease, unspecified; Translations: [COPD UNSPECIFIED] Onset: 12-21-2021 Chronic Complication of device; implant or graft (1 source) Infection and inflammatory reaction due to other cardiac and vascular devices, implants and grafts, initial encounter; Translations: [Infection and inflammatory reaction due to other cardiac and vascular devices, implants and grafts, initial encounter] Onset: 09-17-2024 Episodic Conditions associated with dizziness or vertigo (3 [...] unspecified] 12-04-2021 Episodic Deficiency and other anemia (2 sources) Anemia, unspecified; Translations: [Anemia, unspecified] Onset: 09-17-2024 12-10-2021 Episodic Deficiency and other anemia (1 [...] Translations: [Hypertensive urgency] Chronic Malaise and fatigue (8 sources) Weakness; Translations: [Asthenia] Onset: 12-19-2021 Episodic [...] 12-10-2021 Episodic Other aftercare (1 source) Other [place] [facility] (current) drug therapy; Translations: [OTH HALF-WAY CURRENT DRUG THERAPY] Onset: 12-21-2021 Episodic Other [...] 12-28-2023 Episodic Residual codes; unclassified (1 source) Pain; Translations: [Pain, unspecified] 09-09-2024 Episodic Respiratory failure; insufficiency; arrest (adult) (4 sources) Acute respiratory failure; Translations: [Acute respiratory failure with hypoxia] Onset: 06-13-2024 06-14-2024 Episodic Rheumatoid arthritis and related disease (9 sources) Rheumatoid arthritis; Translations: [Rheumatoid arthritis, unspecified] Onset: 09-17-2024 09-28-2023 Chronic Septicemia (except in labor) (2 sources) Sepsis, unspecified organism; Translations: [Severe sepsis without septic shock] Onset: 09-17-2024 Episodic Substance-related disorders (1 source) Nicotine dependence, cigarettes, [...] Classification Problem Date Documented Da te Episodic/Chronic Residual codes; unclassified (1 source) Pain, unspecified; Translations: [Pain, unspecified] Onset: 06-14-2024 Episodic Results Test Name Value Interpretation Reference Range Facility Basic Metabolic Panelon 09-08 Anion gap [Moles/Vol] 14.5 mmol/L Normal 6.0-15.0 [facility] Comment on above: Performed By: #### B MP, DIFF CBC #### [address] Calcium [Mass/Vol] 9.1 mg/dL Normal 8.6-10.3 [facility] Comment on above: Performed By: #### B MP, DIFF CBC #### [address] Chloride [Moles/Vol] 95 mmol/L Low 98-107 [facility] Comment on above: Performed By: #### B MP, DIFF CBC #### [address] CO2 [Moles/Vol] 25.7 mmol/L Normal 21.0-31.0 [facility] Comment on above: Performed By: #### B MP, DIFF CBC #### [address] Creatinine [Mass/Vol] 3.15 mg/dL Invalid Interpretation Code 0.60-1.20 [facility] Comment on above: Performed By: #### B MP, DIFF CBC #### [address] Creatinine Clr Calc Pharmacy 17.90 Normal [facility] Comment on above: Result Comment: PERF ORMED BY: [place] [address] PATHOLOGIST DRINK WAITER DENILSON COSTA M.D. Performed By: #### B MP, DIFF CBC #### [address] Estimated GFR 16.175 mL/Min Normal [facility] Comment on above: Performed By: #### B MP, DIFF CBC #### [address] Glucose [Mass/Vol] 88 mg/dL Normal 70-100 [facility] Comment on above: Result Comment: [facility] Glucose Reference Range is dependent on time and content of last meal. Glucose of more than 200 mg/dL in a nonstressed, ambulatory subject supports the diagnosis of Diabetes Mellitus. ADA recommended reference range Performed By: #### B MP, DIFF CBC #### [address] Potassium [Moles/Vol] 3.2 mmol/L Low 3.5-5.1 [facility] Comment on above: Performed By: #### B MP, DIFF CBC #### [address] Sodium [Moles/Vol] 132 mmol/L Low 136-145 [facility] Comment on above: Performed By: #### B MP, DIFF CBC #### [address] Urea nitrogen [Mass/Vol] 39 mg/dL High 7-25 [facility] Comment on above: Performed By: #### B MP, DIFF CBC #### [place] [address] [place] Diff and CBCon 09-23-2024 Anisocytosis Ql (Bld) Slight Normal [facility] Comment on above: Performed By: #### B MP, DIFF CBC #### [place] [address] [place] Band form neutrophils/100 WBC (Bld) 1 % Normal 0-5 [facility] Comment on above: Performed By: #### B MP, DIFF CBC #### [place] [address] [place] Basophils/100 WBC (Bld) 1 % Normal 0-2 [facility] Comment on above: Performed By: #### B MP, DIFF CBC #### [place] [address] [place] Eosinophils/100 WBC (Bld) 8 % High 1-3 [facility] Comment on above: Performed By: #### B MP, DIFF CBC #### [address] Erythrocyte distribution width (RBC) [Ratio] 18.3 % High 11.9-15.3 [facility] Comment on above: Performed By: #### B MP, DIFF CBC #### [address] Hematocrit (Bld) [Volume fraction] 27.3 % Low 34.0-46.4 [facility] Comment on above: Performed By: #### B MP, DIFF CBC #### [address] Hemoglobin (Bld) [Mass/Vol] 9.2 g/dL Low 11.8-15.4 [facility] Comment on above: Performed By: #### B MP, DIFF CBC #### [address] Hypochromasia Slight Normal [facility] Comment on above: Performed By: #### B MP, DIFF CBC #### [address] Lymphocytes/100 WBC (Bld) 23 % Normal 18-42 [facility] Comment on above: Performed By: #### B MP, DIFF CBC #### [address] Macrocytosis Slight Normal [facility] Comment on above: Performed By: #### B MP, DIFF CBC #### [address] MCH (RBC) [Entitic mass] 30.6 pg Normal 24.7-34.3 [facility] Comment on above: Performed By: #### B MP, DIFF CBC #### [address] MCV (RBC) [Entitic vol] 90.2 fL Normal 80-100 [facility] Comment on above: Performed By: #### B MP, DIFF CBC #### [address] Mean Corpuscular HGB Conc 33.9 g/dL Normal 32.0-35.0 [facility] Comment on above: Performed By: #### B MP, DIFF CBC #### [address] Metamyelocytes 3 % High 0-0 [facility] Comment on above: Performed By: #### B MP, DIFF CBC #### [place] [address] [place] Monocytes/100 WBC (Bld) 7 % Normal 2-11 [facility] Comment on above: Performed By: #### B MP, DIFF CBC #### [address] Platelet Estimate Decreased Normal Normal [facility] Comment on above: Performed By: #### B MP, DIFF CBC #### [address] Platelet mean volume (Bld) [Entitic vol] 7.7 fL Normal 6.3-10.7 [facility] Comment on above: Result Comment: PERF ORMED BY: [place] [address] PATHOLOGIST DRINK WAITER DENILSON COSTA M.D. Performed By: #### B MP, DIFF CBC #### [address] Platelet Morphology Normal Normal Normal [facility] Comment on above: Result Comment: PERF ORMED BY: [place] [address] PATHOLOGIST DRINK WAITER DENILSON COSTA M.D. Performed By: #### B MP, DIFF CBC #### [place] [address] [place] Platelets (Bld) [#/Vol] 143 10*3/uL Low 150-450 [facility] Comment on above: Performed By: #### B MP, DIFF CBC #### [address] Polychromasia Slight Normal [facility] Comment on above: Performed By: #### B MP, DIFF CBC #### [address] Promyelocytes 1 % High 0-0 [facility] Comment on above: Performed By: #### B MP, DIFF CBC #### [address] RBC (Bld) [#/Vol] 3.03 10*6/uL Low 3.60-5.00 [facility] Comment on above: Performed By: #### B MP, DIFF CBC #### [address] Rouleaux Slight Normal [facility] Comment on above: Performed By: #### B MP, DIFF CBC #### [address] Segmented neutrophils/100 WBC (Bld) 56 % Normal 50-70 [facility] Comment on above: Performed By: #### B MP, DIFF CBC #### [address] WBC (Bld) [#/Vol] 8.3 10*3/uL Normal 3.8-11.6 [facility] Comment on above: Performed By: #### B MP, DIFF CBC #### [address] Vancomycin,Randomon -16-20 25 Vancomycin,Random 14.5 ug/mL Normal 5.0-20.0 [facility] Comment on above: Order Comment: Date of last dose?: [id number] Time of last dose?: 1699 Result Comment: Last dose: - PERFORMED BY: [place] [address] PATHOLOGIST DRINK WAITER DENILSON COSTA M.D. Performed By: #### B MP, DIFF CBC #### [address] Basic Metabolic Panelon 06-1 Anion gap [Moles/Vol] 12.0 mmol/L Normal 6.0-15.0 [facility] Comment on above: Performed By: #### B MP, DIFF CBC #### [address] Calcium [Mass/Vol] 9.0 mg/dL Normal 8.6-10.3 [facility] Comment on above: Performed By: #### B MP, DIFF CBC #### [address] Chloride [Moles/Vol] 96 mmol/L Low 98-107 [facility] Comment on above: Performed By: #### B MP, DIFF CBC #### [address] CO2 [Moles/Vol] 28.4 mmol/L Normal 21.0-31.0 [facility] Comment on above: Performed By: #### B MP, DIFF CBC #### [address] Creatinine [Mass/Vol] 2.13 mg/dL Invalid Interpretation Code 0.60-1.20 [facility] Comment on above: Performed By: #### B MP, DIFF CBC #### [address] Creatinine Clr Calc Pharmacy 26.33 Normal [facility] Comment on above: Result Comment: PERF ORMED BY: [place] [address] PATHOLOGIST DRINK WAITER DENILSON COSTA M.D. Performed By: #### B MP, DIFF CBC #### [address] Estimated GFR 25.868 mL/Min Normal [facility] Comment on above: Performed By: #### B MP, DIFF CBC #### [address] Glucose [Mass/Vol] 86 mg/dL Normal 70-100 [facility] Comment on above: Result Comment: [place] Glucose Reference Range is dependent on time and content of last meal. Glucose of more than 200 mg/dL in a nonstressed, ambulatory subject supports the diagnosis of Diabetes Mellitus. ADA recommended reference range Performed By: #### B MP, DIFF CBC #### [address] Potassium [Moles/Vol] 3.4 mmol/L Low 3.5-5.1 [facility] Comment on above: Performed By: #### B MP, DIFF CBC #### [address] Sodium [Moles/Vol] 133 mmol/L Low 136-145 [facility] Comment on above: Performed By: #### B MP, DIFF CBC #### [address] Urea nitrogen [Mass/Vol] 26 mg/dL High 7-25 [facility] Comment on above: Performed By: #### B MP, DIFF CBC #### [address] Diff and CBCon 09-21-2024 Anisocytosis Ql (Bld) Slight Normal [facility] Comment on above: Performed By: #### B MP, DIFF CBC #### [address] Eosinophils/100 WBC (Bld) 4 % High 1-3 [facility] Comment on above: Performed By: #### B MP, DIFF CBC #### [address] Erythrocyte distribution width (RBC) [Ratio] 18.4 % High 11.9-15.3 [facility] Comment on above: Performed By: #### B MP, DIFF CBC #### [address] Hematocrit (Bld) [Volume fraction] 31.3 % Low 34.0-46.4 [facility] Comment on above: Performed By: #### B MP, DIFF CBC #### [address] Hemoglobin (Bld) [Mass/Vol] 10.4 g/dL Low 11.8-15.4 [facility] Comment on above: Performed By: #### B MP, DIFF CBC #### [address] [address] [place] Hypochromasia Slight Normal [facility] Comment on above: Performed By: #### B MP, DIFF CBC #### [address] Lymphocytes/100 WBC (Bld) 19 % Normal 18-42 [facility] Comment on above: Performed By: #### B MP, DIFF CBC #### [address] MCH (RBC) [Entitic mass] 30.1 pg Normal 24.7-34.3 [facility] Comment on above: Performed By: #### B MP, DIFF CBC #### [address] MCV (RBC) [Entitic vol] 90.7 fL Normal 80-100 T [facility] Comment on above: Performed By: #### B MP, DIFF CBC #### [address] Mean Corpuscular HGB Conc 33.2 g/dL Normal 32.0-35.0 [facility] Comment on above: Performed By: #### B MP, DIFF CBC #### [address] Metamyelocytes 2 % High 0-0 [facility] Comment on above: Performed By: #### B MP, DIFF CBC #### [place] [address] [place] Monocytes/100 WBC (Bld) 8 % Normal 2-11 [facility] Comment on above: Performed By: #### B MP, DIFF CBC #### [address] Myelocytes 1 % High 0-0 [facility] Comment on above: Performed By: #### B MP, DIFF CBC #### [address] Platelet Estimate Normal Normal Normal [facility] Comment on above: Performed By: #### B MP, DIFF CBC #### [address] Platelet mean volume (Bld) [Entitic vol] 7.6 fL Normal 6.3-10.7 [facility] Comment on above: Result Comment: PERF ORMED BY: [place] [address] PATHOLOGIST DRINK WAITER DENILSON COSTA M.D. Performed By: #### B MP, DIFF CBC #### [address] Platelet Morphology Normal Normal Normal [facility] Comment on above: Result Comment: PERF ORMED BY: [place] [address] PATHOLOGIST DRINK WAITER DENILSON COSTA M.D. Performed By: #### B MP, DIFF CBC #### [address] Platelets (Bld) [#/Vol] 153 10*3/uL Normal 150-450 [facility] Comment on above: Performed By: #### B MP, DIFF CBC #### [address] Promyelocytes 1 % High 0-0 [facility] Comment on above: Performed By: #### B MP, DIFF CBC #### [address] RBC (Bld) [#/Vol] 3.45 10*6/uL Low 3.60-5.00 [facility] Comment on above: Performed By: #### B MP, DIFF CBC #### [address] Segmented neutrophils/100 WBC (Bld) 66 % Normal 50-70 [facility] Comment on above: Performed By: #### B MP, DIFF CBC #### [address] WBC (Bld) [#/Vol] 10.0 10*3/uL Normal 3.8-11.6 [facility] Comment on above: Performed By: #### B MP, DIFF CBC #### [address] Basic Metabolic Panelon 09-08 Anion gap [Moles/Vol] 15.6 mmol/L High 6.0-15.0 [facility] Comment on above: Performed By: #### B MP, SCAN CBC #### [address] Calcium [Mass/Vol] 8.7 mg/dL Normal 8.6-10.3 [facility] Comment on above: Performed By: #### B MP, SCAN CBC #### [address] Chloride [Moles/Vol] 92 mmol/L Low 98-107 [facility] Comment on above: Performed By: #### B MP, SCAN CBC #### [address] CO2 [Moles/Vol] 25.1 mmol/L Normal 21.0-31.0 [facility] Comment on above: Performed By: #### B MP, SCAN CBC #### [address] Creatinine [Mass/Vol] 3.07 mg/dL Invalid Interpretation Code 0.60-1.20 [facility] Comment on above: Performed By: #### B MP, SCAN CBC #### [address] Creatinine Clr Calc Pharmacy 18.25 Normal [facility] Comment on above: Result Comment: PERF ORMED BY: [place] [address] PATHOLOGIST DRINK WAITER DENILSON COSTA M.D. Performed By: #### B MP, SCAN CBC #### [address] Estimated GFR 16.683 mL/Min Normal [facility] Comment on above: Performed By: #### B MP, SCAN CBC #### [address] Glucose [Mass/Vol] 76 mg/dL Normal 70-100 [facility] Comment on above: Result Comment: [facility] Glucose Reference Range is dependent on time and content of last meal. Glucose of more than 200 mg/dL in a nonstressed, ambulatory subject supports the diagnosis of Diabetes Mellitus. ADA recommended reference range Performed By: #### B MP, SCAN CBC #### [address] Potassium [Moles/Vol] 3.7 mmol/L Normal 3.5-5.1 [facility] Comment on above: Result Comment: Hemo lysis is present at a level that could interfere with the result. Contact lab if redraw is required Performed By: #### B MP, SCAN CBC #### [address] Sodium [Moles/Vol] 129 mmol/L Low 136-145 [facility] Comment on above: Performed By: #### B MP, SCAN CBC #### [address] Urea nitrogen [Mass/Vol] 51 mg/dL High 7-25 [facility] Comment on above: Performed By: #### B MP, SCAN CBC #### [address] Scan and CBCon 09-20-2024 Anisocytosis Ql (Bld) Moderate Normal [facility] Comment on above: Performed By: #### B MP, SCAN CBC #### [place] [address] [place] Basophils (Bld) [#/Vol] 0.1 10*3/uL Normal 0.0-0.2 [facility] Comment on above: Performed By: #### B MP, SCAN CBC #### [place] [address] [place] Basophils/100 WBC (Bld) 0.5 % Normal . [facility] Comment on above: Performed By: #### B MP, SCAN CBC #### [address] Eosinophils (Bld) [#/Vol] 0.2 10*3/uL Normal 0.0-0.45 [facility] Comment on above: Performed By: #### B MP, SCAN CBC #### [address] Eosinophils/100 WBC (Bld) 0.8 % Normal . [facility] Comment on above: Performed By: #### B MP, SCAN CBC #### [facility] [address] [place] [address] Erythrocyte distribution width (RBC) [Ratio] 18.6 % High 11.9-15.3 [facility] Comment on above: Performed By: #### B MP, SCAN CBC #### [facility] [address] [place] [address] Hematocrit (Bld) [Volume fraction] 26.8 % Low 34.0-46.4 [facility] Comment on above: Performed By: #### B MP, SCAN CBC #### [address] Hemoglobin (Bld) [Mass/Vol] 9.0 g/dL Low 11.8-15.4 [facility] Comment on above: Performed By: #### B MP, SCAN CBC #### [address] Hypochromasia Slight Normal [facility] Comment on above: Performed By: #### B MP, SCAN CBC #### [address] Lymphocytes (Bld) [#/Vol] 2.0 10*3/uL Normal 1.00-4.8 [facility] Comment on above: Performed By: #### B MP, SCAN CBC #### [place] [address] [place] Lymphocytes/100 WBC (Bld) 10.0 % Normal . [facility] Comment on above: Performed By: #### B MP, SCAN CBC #### [facility] [address] [place] [address] MCH (RBC) [Entitic mass] 30.0 pg Normal 24.7-34.3 [facility] Comment on above: Performed By: #### B MP, SCAN CBC #### [address] MCV (RBC) [Entitic vol] 89.1 fL Normal 80-100 T [facility] Comment on above: Performed By: #### B MP, SCAN CBC #### [address] Mean Corpuscular HGB Conc 33.7 g/dL Normal 32.0-35.0 [facility] Comment on above: Performed By: #### B MP, SCAN CBC #### [address] Monocytes (Bld) [#/Vol] 0.8 10*3/uL Normal 0.0-0.8 [facility] Comment on above: Performed By: #### B MP, SCAN CBC #### [address] Monocytes/100 WBC (Bld) 4.0 % Normal . [facility] Comment on above: Performed By: #### B MP, SCAN CBC #### [place] [address] [place] Neutrophils (Bld) [#/Vol] 16.6 10*3/uL High 1.8-7.7 [facility] Comment on above: Performed By: #### B MP, SCAN CBC #### [address] Neutrophils/100 WBC (Bld) 84.7 % Normal . [facility] Comment on above: Performed By: #### B MP, SCAN CBC #### [place] [address] [place] NRBC% 0.1 /100{WBC} Normal 0-0.5 [facility] Comment on above: Performed By: #### B MP, SCAN CBC #### [address] Platelet Estimate Decreased Normal Normal [facility] Comment on above: Performed By: #### B MP, SCAN CBC #### [place] [address] [place] Platelet mean volume (Bld) [Entitic vol] 8.0 fL Normal 6.3-10.7 [facility] Comment on above: Performed By: #### B MP, SCAN CBC #### [address] Platelet Morphology Normal Normal Normal [facility] Comment on above: Result Comment: PERF ORMED BY: [place] [address] PATHOLOGIST [employer]INK WAITER DENILSON COSTA M.D. Performed By: #### B MP, SCAN CBC #### [address] Platelets (Bld) [#/Vol] 148 10*3/uL Low 150-450 [facility] Comment on above: Performed By: #### B MP, SCAN CBC #### [address] RBC (Bld) [#/Vol] 3.01 10*6/uL Low 3.60-5.00 [facility] Comment on above: Performed By: #### B MP, SCAN CBC #### [address] WBC (Bld) [#/Vol] 19.7 10*3/uL High 3.8-11.6 [facility] Comment on above: Performed By: #### B MP, SCAN CBC #### [address] Basic Metabolic Panelon 06- Anion gap [Moles/Vol] 13.9 mmol/L Normal 6.0-15.0 [facility] Comment on above: Performed By: #### D IFF CBC, BMP #### [address] Calcium [Mass/Vol] 9.0 mg/dL Normal 8.6-10.3 [facility] Comment on above: Performed By: #### D IFF CBC, BMP #### [address] Chloride [Moles/Vol] 90 mmol/L Low 98-107 [facility] Comment on above: Performed By: #### D IFF CBC, BMP #### [facility] [address] CO2 [Moles/Vol] 28.1 mmol/L Normal 21.0-31.0 [facility] Comment on above: Performed By: #### D IFF CBC, BMP #### [facility] [address] [place] [address] [place] Creatinine [Mass/Vol] 2.14 mg/dL Invalid Interpretation Code 0.60-1.20 [facility] Comment on above: Performed By: #### D IFF CBC, BMP #### [place] [address] [place] Creatinine Clr Calc Pharmacy 25.93 Normal [facility] Comment on above: Result Comment: PERF ORMED BY: [place] [address] PATHOLOGIST DRINK WAITER DENILSON COSTA M.D. Performed By: #### D IFF CBC, BMP #### [address] Estimated GFR 25.724 mL/Min Normal [facility] Comment on above: Performed By: #### D IFF CBC, BMP #### [address] Glucose [Mass/Vol] 85 mg/dL Normal 70-100 [facility] Comment on above: Result Comment: [facility] Glucose Reference Range is dependent on time and content of last meal. Glucose of more than 200 mg/dL in a nonstressed, ambulatory subject supports the diagnosis of Diabetes Mellitus. ADA recommended reference range Performed By: #### D IFF CBC, BMP #### [facility] [address] Potassium [Moles/Vol] 4.0 mmol/L Invalid Interpretation Code 3.5-5.1 [facility] Comment on above: Performed By: #### D IFF CBC, BMP #### [facility] [address] [place] [address] [place] Sodium [Moles/Vol] 128 mmol/L Low 136-145 [facility] Comment on above: Performed By: #### D IFF CBC, BMP #### [address] Urea nitrogen [Mass/Vol] 29 mg/dL Invalid Interpretation Code 11-01 [facility] Comment on above: Performed By: #### D IFF CBC, BMP #### [facility] [address] [place] [address] [place] Diff and CBCon 09-19-2024 Anisocytosis Ql (Bld) Slight Normal [facility] Comment on above: Performed By: #### D IFF CBC, BMP #### [address] Band form neutrophils/100 WBC (Bld) 4 % Normal 0-5 [facility] Comment on above: Performed By: #### D IFF CBC, BMP #### [facility] [address] [place] [address] Basophils/100 WBC (Bld) 0 % Normal 0-2 [facility] Comment on above: Performed By: #### D IFF CBC, BMP #### [address] Eosinophils/100 WBC (Bld) 0 % Low 1-3 [facility] Comment on above: Performed By: #### D IFF CBC, BMP #### [address] Erythrocyte distribution width (RBC) [Ratio] 18.8 % High 11.9-15.3 [facility] Comment on above: Performed By: #### D IFF CBC, BMP #### [facility] [address] Hematocrit (Bld) [Volume fraction] 28.3 % Low 34.0-46.4 [facility] Comment on above: Performed By: #### D IFF CBC, BMP #### [facility] [address] [place] [address] Hemoglobin (Bld) [Mass/Vol] 9.5 g/dL Low 11.8-15.4 [facility] Comment on above: Performed By: #### D IFF CBC, BMP #### [address] Lymphocytes/100 WBC (Bld) 6 % Low 18-42 [facility] Comment on above: Performed By: #### D IFF CBC, BMP #### [address] MCH (RBC) [Entitic mass] 29.9 pg Normal 24.7-34.3 [facility] Comment on above: Performed By: #### D IFF CBC, BMP #### [address] MCV (RBC) [Entitic vol] 88.9 fL Normal 80-100 [facility] Comment on above: Performed By: #### D IFF CBC, BMP #### [address] Mean Corpuscular HGB Conc 33.6 g/dL Normal 32.0-35.0 [facility] Comment on above: Performed By: #### D IFF CBC, BMP #### [address] Monocytes/100 WBC (Bld) 9 % Normal 2-11 [facility] Comment on above: Performed By: #### D IFF CBC, BMP #### [address] Platelet Estimate Normal Normal Normal [facility] Comment on above: Performed By: #### D IFF CBC, BMP #### [address] Platelet mean volume (Bld) [Entitic vol] 8.2 fL Normal 6.3-10.7 [facility] Comment on above: Performed By: #### D IFF CBC, BMP #### [address] Platelet Morphology Normal Normal Normal [facility] Comment on above: Result Comment: PERF ORMED BY: [address] [place] [address] PATHOLOGIST DRINK WAITER DENILSON COSTA M.D. Performed By: #### D IFF CBC, BMP #### [address] Platelets (Bld) [#/Vol] 165 10*3/uL Normal 150-450 [facility] Comment on above: Performed By: #### D IFF CBC, BMP #### [address] RBC (Bld) [#/Vol] 3.18 10*6/uL Low 3.60-5.00 [facility] Comment on above: Performed By: #### D IFF CBC, BMP #### [address] RBC morphology finding Nom (Bld) Normal Normal Normal [facility] Comment on above: Performed By: #### D IFF CBC, BMP #### [address] Segmented neutrophils/100 WBC (Bld) 81 % High 50-70 [facility] Comment on above: Performed By: #### D IFF CBC, BMP #### [address] WBC (Bld) [#/Vol] 40.8 10*3/uL High 3.8-11.6 [facility] Comment on above: Performed By: #### D IFF CBC, BMP #### [address] Comprehensive Metabolic Pane kael 09-18-2024 Albumin [Mass/Vol] 3.6 g/dL Normal 3.5-5.7 [facility] Comment on above: Performed By: #### B MP, DIFF CBC #### [address] Albumin/Globulin [Mass ratio] 1.2 {ratio} Normal [facility] Comment on above: Performed By: #### B MP, DIFF CBC #### [address] ALP [Catalytic activity/Vol] 36 U/L Normal 34-104 [facility] Comment on above: Performed By: #### B MP, DIFF CBC #### [facility] [address] ALT [Catalytic activity/Vol] 14 U/L Normal 7-52 [facility] Comment on above: Performed By: #### B MP, DIFF CBC #### [facility] [address] Anion gap [Moles/Vol] 17.0 mmol/L High 6.0-15.0 [facility] Comment on above: Performed By: #### B MP, DIFF CBC #### [address] AST [Catalytic activity/Vol] 25 U/L Normal 13-39 [facility] Comment on above: Performed By: #### B MP, DIFF CBC #### [address] Bilirubin [Mass/Vol] 1.8 mg/dL High 0.3-1.0 [facility] Comment on above: Result Comment: Samp les from patients who have taken Naproxen have shown spurious elevation in Total Bilirubin levels. A metabolite of Naproxen, O-desmethylnaproxen, has been shown to interfere with the Jendrassik-Grof method for measuring Total Bilirubin. Performed By: #### B MP, DIFF CBC #### [place] [address] [place] Calcium [Mass/Vol] 9.3 mg/dL Normal 8.6-10.3 [facility] Comment on above: Performed By: #### B MP, DIFF CBC #### [place] [address] [place] Chloride [Moles/Vol] 90 mmol/L Low 98-107 [facility] Comment on above: Performed By: #### B MP, DIFF CBC #### [place] [address] [place] CO2 [Moles/Vol] 21.8 mmol/L Normal 21.0-31.0 [facility] Comment on above: Performed By: #### B MP, DIFF CBC #### [address] Creatinine [Mass/Vol] 3.88 mg/dL High 0.60-1.20 [facility] Comment on above: Performed By: #### B MP, DIFF CBC #### [address] Creatinine Clr Calc Pharmacy 14.25 Normal [facility] Comment on above: Result Comment: PERF ORMED BY: [place] [address] PATHOLOGIST [employer]INK WAITER DENILSON COSTA M.D. Performed By: #### B MP, DIFF CBC #### [address] Estimated GFR 12.596 mL/Min Normal [facility] Comment on above: Performed By: #### B MP, DIFF CBC #### [address] Globulin (S) [Mass/Vol] 3.0 g/dL Normal T [facility] Comment on above: Performed By: #### B MP, DIFF CBC #### [address] Glucose [Mass/Vol] 82 mg/dL Normal 70-100 [facility] Comment on above: Result Comment: [place] Glucose Reference Range is dependent on time and content of last meal. Glucose of more than 200 mg/dL in a nonstressed, ambulatory subject supports the diagnosis of Diabetes Mellitus. ADA recommended reference range Performed By: #### B MP, DIFF CBC #### [facility] [address] Potassium [Moles/Vol] 5.8 mmol/L High 3.5-5.1 [facility] Comment on above: Performed By: #### B MP, DIFF CBC #### [address] Protein [Mass/Vol] 6.6 g/dL Normal 6.4-8.9 [facility] Comment on above: Performed By: #### B MP, DIFF CBC #### [address] Sodium [Moles/Vol] 123 mmol/L Off scale low 136-145 [facility] Comment on above: Result Comment: Crit ical Result Called to and read back by: DANNY NOLAND at: 09/18/2024 05:03:31 by:HARPER Performed By: #### B MP, DIFF CBC #### [address] Urea nitrogen [Mass/Vol] 59 mg/dL High 7-25 [facility] Comment on above: Performed By: #### B MP, DIFF CBC #### [address] Scan and CBCon 09-18-2024 Anisocytosis Ql (Bld) Moderate Normal [facility] Comment on above: Performed By: #### B MP, DIFF CBC #### [address] Basophils (Bld) [#/Vol] 0.1 10*3/uL Normal 0.0-0.2 [facility] Comment on above: Performed By: #### B MP, DIFF CBC #### [address] Basophils/100 WBC (Bld) 0.1 % Normal . T [facility] Comment on above: Performed By: #### B MP, DIFF CBC #### [address] Eosinophils (Bld) [#/Vol] 0.1 10*3/uL Normal 0.0-0.45 [facility] Comment on above: Performed By: #### B MP, DIFF CBC #### [address] Eosinophils/100 WBC (Bld) 0.3 % Normal . [facility] Comment on above: Performed By: #### B MP, DIFF CBC #### [address] Erythrocyte distribution width (RBC) [Ratio] 19.5 % High 11.9-15.3 [facility] Comment on above: Performed By: #### B MP, DIFF CBC #### [address] Hematocrit (Bld) [Volume fraction] 28.1 % Low 34.0-46.4 [facility] Comment on above: Performed By: #### B MP, DIFF CBC #### [address] Hemoglobin (Bld) [Mass/Vol] 9.4 g/dL Low 11.8-15.4 [facility] Comment on above: Performed By: #### B MP, DIFF CBC #### [address] Lymphocytes (Bld) [#/Vol] 0.6 10*3/uL Low 1.00-4.8 [facility] Comment on above: Performed By: #### B MP, DIFF CBC #### [address] Lymphocytes/100 WBC (Bld) 1.8 % Normal . [facility] Comment on above: Performed By: #### B MP, DIFF CBC #### [address] MCH (RBC) [Entitic mass] 30.0 pg Normal 24.7-34.3 [facility] Comment on above: Performed By: #### B MP, DIFF CBC #### [address] MCV (RBC) [Entitic vol] 89.9 fL Normal 80-100 T [facility] Comment on above: Performed By: #### B MP, DIFF CBC #### [address] Mean Corpuscular HGB Conc 33.3 g/dL Normal 32.0-35.0 [facility] Comment on above: Performed By: #### B MP, DIFF CBC #### [address] Monocytes (Bld) [#/Vol] 2.6 10*3/uL High 0.0-0.8 [facility] Comment on above: Performed By: #### B MP, DIFF CBC #### [address] Monocytes/100 WBC (Bld) 7.3 % Normal . T [facility] Comment on above: Performed By: #### B MP, DIFF CBC #### [address] Neutrophils (Bld) [#/Vol] 31.9 10*3/uL High 1.8-7.7 [facility] Comment on above: Performed By: #### B MP, DIFF CBC #### [address] Neutrophils/100 WBC (Bld) 90.5 % Normal . [facility] Comment on above: Performed By: #### B MP, DIFF CBC #### [address] NRBC% 0.0 /100{WBC} Normal 0-0.5 [facility] Comment on above: Performed By: #### B MP, DIFF CBC #### [address] Platelet Estimate Normal Normal Normal [facility] Comment on above: Performed By: #### B MP, DIFF CBC #### [address] Platelet mean volume (Bld) [Entitic vol] 7.9 fL Normal 6.3-10.7 [facility] Comment on above: Performed By: #### B MP, DIFF CBC #### [address] Platelet Morphology Normal Normal Normal [facility] Comment on above: Result Comment: PERF ORMED BY: [place] [address] PATHOLOGIST DRINK WAITER DENILSON COSTA M.D. Performed By: #### B MP, DIFF CBC #### [address] Platelets (Bld) [#/Vol] 153 10*3/uL Normal 150-450 [facility] Comment on above: Performed By: #### B MP, DIFF CBC #### [address] RBC (Bld) [#/Vol] 3.13 10*6/uL Low 3.60-5.00 [facility] Comment on above: Performed By: #### B MP, DIFF CBC #### [address] WBC (Bld) [#/Vol] 35.3 10*3/uL High 3.8-11.6 [facility] Comment on above: Performed By: #### B MP, DIFF CBC #### [address] ABO/Rh Retypeon 09-17-2024 ABO/RH Recheck Result Positive Normal [facility] Comment on above: Result Comment: PERF ORMED BY: [place] [address] PATHOLOGIST DRINK WAITER DENILSON COSTA M.D. Basic Metabolic Panelon 09-08 Anion gap [Moles/Vol] 14.2 mmol/L Normal 6.0-15.0 [facility] Comment on above: Performed By: #### B MP, DIFF CBC #### [place] [address] [place] Calcium [Mass/Vol] 8.8 mg/dL Normal 8.6-10.3 [facility] Comment on above: Performed By: #### B MP, DIFF CBC #### [place] [address] [place] Chloride [Moles/Vol] 91 mmol/L Low 98-107 [facility] Comment on above: Performed By: #### B MP, DIFF CBC #### [address] CO2 [Moles/Vol] 25.7 mmol/L Normal 21.0-31.0 [facility] Comment on above: Performed By: #### B MP, DIFF CBC #### [facility] [address] Creatinine [Mass/Vol] 3.49 mg/dL High 0.60-1.20 [facility] Comment on above: Performed By: #### B MP, DIFF CBC #### [address] Creatinine Clr Calc Pharmacy 15.85 Normal [facility] Comment on above: Result Comment: PERF ORMED BY: [place] [address] PATHOLOGIST DRINK WAITER DENILSON COSTA M.D. Performed By: #### B MP, DIFF CBC #### [address] Estimated GFR 14.303 mL/Min Normal [facility] Comment on above: Performed By: #### B MP, DIFF CBC #### [address] Glucose [Mass/Vol] 64 mg/dL Low 70-100 [facility] Comment on above: Result Comment: [facility] Glucose Reference Range is dependent on time and content of last meal. Glucose of more than 200 mg/dL in a nonstressed, ambulatory subject supports the diagnosis of Diabetes Mellitus. ADA recommended reference range Performed By: #### B MP, DIFF CBC #### [place] [address] [place] Potassium [Moles/Vol] 4.9 mmol/L Normal 3.5-5.1 [facility] Comment on above: Performed By: #### B MP, DIFF CBC #### [facility] [address] [place] [address] [place] Sodium [Moles/Vol] 126 mmol/L Low 136-145 [facility] Comment on above: Performed By: #### B MP, DIFF CBC #### [place] [address] [place] Urea nitrogen [Mass/Vol] 43 mg/dL High 7-25 [facility] Comment on above: Performed By: #### B MP, DIFF CBC #### [facility] [address] [place] [address] Blood Cultureon 09-17-2024 Bacteria identified Cx Nom (Bld) NO GROWTH 5 DAYS PERFORMED BY: [place] [address] PATHOLOGIST DRINK WAITER DENILSON COSTA M.D. Normal [facility] Comment on above: Performed By: #### B MP, DIFF CBC #### [facility] [address] [place] [address] CT abdomen pelvis w conon CT abdomen pelvis w con [place] [facility] [place] [address] [place] [address] CT Scan Report Signed Patient: Orestes Alvares MR#: [id number] : 1965 Acct:[id number] Age/Sex: 59 / F ADM Date: 09/17/24 Loc: Room: [address] [place] [address] Type: DIS IN Attending Dr: Rosalinda Alfonso DO Copies to: DO Natalie Robison MD Ordering Provider: Natalie Pak MD Date of Service: 09/17/24 CT/CT abdomen pelvis w con: abd tenderness CT Abdomen and Pelvis withcontrast TECHNIQUE: Axial imaging with 2-D reconstruction.90 cc of Isovue-300. The CT exam was performed using one or more the following dose reduction techniques: Automated exposure control, adjustment of the MA and/or Kv according to patient size, or use of the iterative reconstruction technique. COMPARISON: 12/08/2021 History: Abdominal tenderness. Low hemoglobin. LIMITATIONS: None LOWER THORAX cardiomegaly. Left basilar consolidation. A tiny left pleural effusion. LIVER: Fatty hepatomegaly. GALLBLADDER: No gallbladder abnormality identified. BILE DUCTS: No dilatation SPLEEN: Unremarkable PANCREAS: Unremarkable ADRENAL GLANDS: Unremarkable KIDNEYS:No nephrolithiasis or obstructive uropathy. 6.4 cm left renal cyst. Tiny bilateral renal cysts. Perinephric stranding the redemonstrated. AORTA: No abdominal aortic aneurysm identified. RETROPERITONEUM: No significant retroperitoneal abnormalities identified. MESENTERY:Unremarkable STOMACH:Unremarkable SMALL BOWEL: The small bowel loops are nondistended. APPENDIX: The appendix is normal. COLON: Diffuse colon wall thickening. Underdistention versus colitis. Sigmoid diverticulosis. URINARY BLADDER: Urinary bladder wall thickening. Consider cystitis. REPRODUCTIVE SYSTEM: Reproductive structures are unremarkable. PNEUMOPERITONEUM: None PERITONEAL FLUID:A tiny low-density pelvic ascites. No hemoperitoneum. BONY STRUCTURES: Unremarkable ABDOMINAL WALL: No hematoma. CT/CT abdomen pelvis w con IMPRESSION: Diffuse colon wall thickening. Underdistention versus colitis. Urinary bladder wall thickening. Consider cystitis. No hemoperitoneum. No hematoma. Left basilar consolidation. Pneumonitis/infiltrate. Tiny left pleural effusion. Trace pelvic ascites. Impression dictated by: Zhen Bunch M.D. 09/17/2024 11:11 AM Dictation Location: [facility] Transcribed By: [facility] 09/17/24 1111 Dictated By: Zhen Bunch DO 09/17/24 1102 Signed By: 09/17/24 1111 Normal [facility] Clostridium Difficileon 09-08 Clostridium Difficile Negative Normal Negative [facility] Comment on above: Order Comment: > or = to 3 loose/watery stools in the last 24 HRS? Y Is patient on promotility agents or tube feeding? N Result Comment: Test ing performed by RT-PCR PERFORMED BY: [place] [address] PATHOLOGIST DRINK WAITER DENILSON COSTA M.D. Performed By: #### B MP, DIFF CBC #### [address] Comprehensive Metabolic Pane kael 09-17-2024 Albumin [Mass/Vol] 3.3 g/dL Low 3.5-5.7 [facility] Comment on above: Performed By: #### C UU #### [facility] [address] Albumin/Globulin [Mass ratio] 1.3 {ratio} Normal [facility] Comment on above: Performed By: #### C UU #### [facility] [address] ALP [Catalytic activity/Vol] 32 U/L Low 34-104 [facility] Comment on above: Performed By: #### C UU #### [address] ALT [Catalytic activity/Vol] 13 U/L Normal 7-52 [facility] Comment on above: Performed By: #### C UU #### [address] Anion gap [Moles/Vol] 13.8 mmol/L Normal 6.0-15.0 [facility] Comment on above: Performed By: #### C UU #### [address] AST [Catalytic activity/Vol] 23 U/L Normal 13-39 [facility] Comment on above: Performed By: #### C UU #### [address] Bilirubin [Mass/Vol] 0.7 mg/dL Normal 0.3-1.0 [facility] Comment on above: Performed By: #### C UU #### [address] Calcium [Mass/Vol] 8.8 mg/dL Normal 8.6-10.3 [facility] Comment on above: Performed By: #### C UU #### [address] Chloride [Moles/Vol] 91 mmol/L Low 98-107 [facility] Comment on above: Performed By: #### C UU #### [address] CO2 [Moles/Vol] 26.6 mmol/L Normal 21.0-31.0 [facility] [facility] Comment on above: Performed By: #### C UU #### [address] Creatinine [Mass/Vol] 3.57 mg/dL High 0.60-1.20 [facility] Comment on above: Performed By: #### C UU #### [address] Creatinine Clr Calc Pharmacy 15.49 Normal [facility] Comment on above: Result Comment: PERF ORMED BY: [place] [address] PATHOLOGIST DRINK WAITER DENILSON COSTA M.D. Performed By: #### C UU #### [address] Estimated GFR 13.919 mL/Min Normal [facility] Comment on above: Performed By: #### C UU #### [address] Globulin (S) [Mass/Vol] 2.5 g/dL Normal T [facility] Comment on above: Performed By: #### C UU #### [address] Glucose [Mass/Vol] 72 mg/dL Normal 70-100 [facility] Comment on above: Result Comment: [facility] Glucose Reference Range is dependent on time and content of last meal. Glucose of more than 200 mg/dL in a nonstressed, ambulatory subject supports the diagnosis of Diabetes Mellitus. ADA recommended reference range Performed By: #### C UU #### [address] Potassium [Moles/Vol] 5.4 mmol/L High 3.5-5.1 [facility] Comment on above: Performed By: #### C UU #### [address] Protein [Mass/Vol] 5.8 g/dL Low 6.4-8.9 [facility] Comment on above: Performed By: #### C UU #### [address] Sodium [Moles/Vol] 126 mmol/L Low 136-145 [facility] Comment on above: Performed By: #### C UU #### [address] Urea nitrogen [Mass/Vol] 49 mg/dL High 7-25 [facility] Comment on above: Performed By: #### C UU #### [address] Cortisolon 09-17-2024 Cortisol 34.3 ug/dL Normal [facility] Comment on above: Result Comment: Refe rence range: AM 6 - 24 ug/dl PM <10 ug/dl [facility] advertising production manager and method: ELIZABETH UNICEL DXI, POLYCLONAL ANTIBODY CORTISOL ASSAY. PERFORMED BY: [place] [address] PATHOLOGIST DRINK WAITER DENILSON COSTA M.D. Performed By: #### C UU #### [address] Diff and CBCon 09-17-2024 Anisocytosis Ql (Bld) Moderate Normal [facility] Comment on above: Performed By: #### C UU #### [address] Band form neutrophils/100 WBC (Bld) 28 % High 0-5 [facility] Comment on above: Performed By: #### C UU #### [address] Erythrocyte distribution width (RBC) [Ratio] 19.5 % High 11.9-15.3 [facility] Comment on above: Performed By: #### C UU #### [address] Hematocrit (Bld) [Volume fraction] 20.3 % Low 34.0-46.4 [facility] Comment on above: Performed By: #### C UU #### [address] Hemoglobin (Bld) [Mass/Vol] 6.6 g/dL Low 11.8-15.4 [facility] Comment on above: Performed By: #### C UU #### [address] Lymphocytes/100 WBC (Bld) 2 % Low 18-42 [facility] Comment on above: Performed By: #### C UU #### [address] MCH (RBC) [Entitic mass] 30.2 pg Normal 24.7-34.3 [facility] Comment on above: Performed By: #### C UU #### [address] MCV (RBC) [Entitic vol] 92.7 fL Normal 80-100 T [facility] Comment on above: Performed By: #### C UU #### [address] Mean Corpuscular HGB Conc 32.6 g/dL Normal 32.0-35.0 [facility] Comment on above: Performed By: #### C UU #### [address] Metamyelocytes 4 % High 0-0 [facility] Comment on above: Performed By: #### C UU #### [address] Monocytes/100 WBC (Bld) 7 % Normal 2-11 [facility] Comment on above: Performed By: #### C UU #### [address] Platelet Estimate Normal Normal Normal [facility] Comment on above: Performed By: #### C UU #### [address] Platelet mean volume (Bld) [Entitic vol] 7.2 fL Normal 6.3-10.7 [facility] Comment on above: Performed By: #### C UU #### [address] Platelet Morphology Normal Normal Normal [facility] Comment on above: Result Comment: PERF ORMED BY: [place] [address] PATHOLOGIST DRINK WAITER DENILSON COSTA M.D. Performed By: #### C UU #### [address] [address] [place] Platelets (Bld) [#/Vol] 177 10*3/uL Normal 150-450 [facility] Comment on above: Performed By: #### C UU #### [address] RBC (Bld) [#/Vol] 2.19 10*6/uL Low 3.60-5.00 [facility] Comment on above: Performed By: #### C UU #### [address] Segmented neutrophils/100 WBC (Bld) 60 % Normal 50-70 [facility] Comment on above: Performed By: #### C UU #### [address] Toxic Vacuolation Slight Normal [facility] Comment on above: Performed By: #### C UU #### [address] WBC (Bld) [#/Vol] 29.0 10*3/uL High 3.8-11.6 [facility] Comment on above: Performed By: #### C UU #### [address] Anisocytosis Ql (Bld) Moderate Normal [facility] Comment on above: Performed By: #### B MP, DIFF CBC #### [address] Band form neutrophils/100 WBC (Bld) 16 % High 0-5 [facility] Comment on above: Performed By: #### B MP, DIFF CBC #### [address] Erythrocyte distribution width (RBC) [Ratio] 19.1 % High 11.9-15.3 [facility] Comment on above: Performed By: #### B MP, DIFF CBC #### [address] Hematocrit (Bld) [Volume fraction] 20.7 % Low 34.0-46.4 [facility] Comment on above: Performed By: #### B MP, DIFF CBC #### [address] Hemoglobin (Bld) [Mass/Vol] 6.8 g/dL Low 11.8-15.4 [facility] Comment on above: Performed By: #### B MP, DIFF CBC #### [place] [address] [place] Lymphocytes/100 WBC (Bld) 4 % Low 18-42 [facility] Comment on above: Performed By: #### B MP, DIFF CBC #### [address] MCH (RBC) [Entitic mass] 30.5 pg Normal 24.7-34.3 [facility] Comment on above: Performed By: #### B MP, DIFF CBC #### [address] MCV (RBC) [Entitic vol] 92.9 fL Normal 80-100 T [facility] Comment on above: Performed By: #### B MP, DIFF CBC #### [address] Mean Corpuscular HGB Conc 32.9 g/dL Normal 32.0-35.0 [facility] Comment on above: Performed By: #### B MP, DIFF CBC #### [address] Metamyelocytes 4 % High 0-0 [facility] Comment on above: Performed By: #### B MP, DIFF CBC #### [place] [address] [place] Monocytes/100 WBC (Bld) 5 % Normal 2-11 [facility] Comment on above: Performed By: #### B MP, DIFF CBC #### [address] Platelet Estimate Normal Normal Normal [facility] Comment on above: Performed By: #### B MP, DIFF CBC #### [address] Platelet mean volume (Bld) [Entitic vol] 7.5 fL Normal 6.3-10.7 [facility] Comment on above: Performed By: #### B MP, DIFF CBC #### [address] Platelet Morphology Normal Normal Normal [facility] Comment on above: Result Comment: PERF ORMED BY: [place] [address] PATHOLOGIST DRINK WAITER DENILSON COSTA M.D. Performed By: #### B MP, DIFF CBC #### [address] Platelets (Bld) [#/Vol] 203 10*3/uL Normal 150-450 [facility] Comment on above: Performed By: #### B MP, DIFF CBC #### [address] RBC (Bld) [#/Vol] 2.22 10*6/uL Low 3.60-5.00 [facility] Comment on above: Performed By: #### B MP, DIFF CBC #### [address] Segmented neutrophils/100 WBC (Bld) 73 % High 50-70 [facility] Comment on above: Performed By: #### B MP, DIFF CBC #### [place] [address] [place] WBC (Bld) [#/Vol] 25.3 10*3/uL High 3.8-11.6 [facility] Comment on above: Performed By: #### B MP, DIFF CBC #### [address] ECG 12 lead ECGon 09-17-2024 ECG 12 lead ECG [facility] [place] [address] [place] [address] Electrocardiograph Report Signed Patient: Orestes Alvares MR#: [id number] : 1965 Acct:[id number] Age/Sex: 59 / F ADM Date: 09/17/24 Loc: Room: 6Q5918-6 Type: ADM IN Attending Dr: Natalie Pak MD Ordering Provider: Law Shaffer MD Date of Service: 09/17/2402/02/1200 ECG/ECG 12 lead ECG: EKG changes Copies to: Test Reason : Blood Pressure : 89/50 mmHG Vent. Rate : 110 BPM Atrial Rate : 340 BPM P-R Int : * ms QRS Dur : 72 ms QT Int : 362 ms P-R-T Axes : * 143 -3 degrees QTcB Int : 489 ms suspect limb leads mispalcement Atrial fibrillation with rapid ventricular response Incomplete right bundle branch block Abnormal ECG When compared with ECG of 15-Mar-2022 18:08, Atrial fibrillation has replaced Atrial flutter Confirmed by LUCINA BLAIR FACC, KYLAH ([id number]) on 09/18/2024 4:08:51 PM Referred By: Electronically Signed By: KYLAH VERDUGO MD FAC Transcribed By: MUS Signed By Kylah Verdugo MD, FACC 09/18/24 1608 Normal [facility] Gastrointestinal Profile, PC Wilmer 09-17-2024 Adenovirus F 40/41 Not detected Normal Not Detected [facility] Comment on above: Order Comment: SOURC E OF SPECIMEN: stool Performed By: #### B MP, DIFF CBC #### [address] Astrovirus Not detected Normal Not Detected [facility] Comment on above: Order Comment: SOURC E OF SPECIMEN: stool Performed By: #### B MP, DIFF CBC #### [facility] [address] C Difficile Toxin A/B Not detected Normal Not Detected [facility] Comment on above: Order Comment: SOURC E OF SPECIMEN: stool Performed By: #### B MP, DIFF CBC #### [facility] [address] [place] [address] [place] Campylobacter Not detected Normal Not Detected [facility] Comment on above: Order Comment: SOURC E OF SPECIMEN: stool Performed By: #### B MP, DIFF CBC #### [facility] [address] Cryptosporidium Not detected Normal Not Detected [facility] Comment on above: Order Comment: SOURC E OF SPECIMEN: stool Performed By: #### B MP, DIFF CBC #### [facility] [address] Cyclospora cayetanensis Not detected Normal Not Detected [facility] Comment on above: Order Comment: SOURC E OF SPECIMEN: stool Performed By: #### B MP, DIFF CBC #### [facility] [address] [place] [address] [place] E coli O157 Not applicable Normal Not Detected [facility] Comment on above: Order Comment: SOURC E OF SPECIMEN: stool Performed By: #### B MP, DIFF CBC #### [address] Entamoeba histolytica Not detected Normal Not Detected [facility] Comment on above: Order Comment: SOURC E OF SPECIMEN: stool Performed By: #### B MP, DIFF CBC #### [address] Enteroaggregative E coli Not detected Normal Not Detected [facility] Comment on above: Order Comment: SOURC E OF SPECIMEN: stool Performed By: #### B MP, DIFF CBC #### [place] [address] [place] Enteropathogenic E coli Not detected Normal Not Detected [facility] Comment on above: Order Comment: SOURC E OF SPECIMEN: stool Performed By: #### B MP, DIFF CBC #### [place] [address] [place] Enterotoxigenic E coli Not detected Normal Not Detected [facility] Comment on above: Order Comment: SOURC E OF SPECIMEN: stool Performed By: #### B MP, DIFF CBC #### [place] [address] [place] Giardia lamblia Not detected Normal Not Detected [facility] Comment on above: Order Comment: SOURC E OF SPECIMEN: stool Performed By: #### B MP, DIFF CBC #### [place] [address] [place] Norovirus GI/GII Not detected Normal Not Detected [facility] Comment on above: Order Comment: SOURC E OF SPECIMEN: stool Performed By: #### B MP, DIFF CBC #### [address] Plesiomonas shigelloides Not detected Normal Not Detected [facility] Comment on above: Order Comment: SOURC E OF SPECIMEN: stool Performed By: #### B MP, DIFF CBC #### [address] Rotavirus A Not detected Normal Not Detected [facility] Comment on above: Order Comment: SOURC E OF SPECIMEN: stool Performed By: #### B MP, DIFF CBC #### [address] Salmonella Not detected Normal Not Detected [facility] Comment on above: Order Comment: SOURC E OF SPECIMEN: stool Performed By: #### B MP, DIFF CBC #### [address] Sapovirus Not detected Normal Not Detected [facility] Comment on above: Order Comment: SOURC E OF SPECIMEN: stool Result Comment: Perf ormed at: - [facility] [id number] Director International: Meli Bishop MD, Phone: [phone] PERFORMED BY: [place] [address] PATHOLOGIST DRINK WAITER DENILSON COSTA M.D. Performed By: #### B MP, DIFF CBC #### [address] Uemsq-ggmkc-mqtqhtkta E coli Not detected Normal Not Detected [facility] Comment on above: Order Comment: SOURC E OF SPECIMEN: stool Performed By: #### B MP, DIFF CBC #### [place] [address] [place] Shigella/Enteroinvasive E coli Not detected Normal Not Detected [facility] Comment on above: Order Comment: SOURC E OF SPECIMEN: stool Performed By: #### B MP, DIFF CBC #### [place] [address] [place] Vibrio Not detected Normal Not Detected [facility] Comment on above: Order Comment: SOURC E OF SPECIMEN: stool Performed By: #### B MP, DIFF CBC #### [address] Vibrio cholerae Not detected Normal Not Detected [facility] Comment on above: Order Comment: SOURC E OF SPECIMEN: stool Performed By: #### B MP, DIFF CBC #### [address] Yersinia enterocolitica Not detected Normal Not Detected [facility] Comment on above: Order Comment: SOURC E OF SPECIMEN: stool Performed By: #### B MP, DIFF CBC #### [address] Glucose Poct Glucometerson 0 09-17-2024 Commemt1 Glu2: Cleaned Meter Normal [facility] Comment on above: Result Comment: PERF ORMED BY: [place] [address] PATHOLOGIST DRINK WAITER DENILSON COSTA M.D. Performed By: #### B MP, DIFF CBC #### [address] Glucose [Mass/Vol] 109 mg/dL Normal [facility] Comment on above: Result Comment: [place] om Glucose Reference Range is dependent on time and content of last meal. Glucose of more than 200 mg/dL in a nonstressed, ambulatory subject supports the diagnosis of Diabetes Mellitus. Performed By: #### B MP, DIFF CBC #### [address] Glucose [Mass/Vol] 81 mg/dL Normal [facility] Comment on above: Result Comment: [place] om Glucose Reference Range is dependent on time and content of last meal. Glucose of more than 200 mg/dL in a nonstressed, ambulatory subject supports the diagnosis of Diabetes Mellitus. PERFORMED BY: [place] [address] PATHOLOGIST DRINK WAITER DENILSON COSTA M.D. Performed By: #### B MP, DIFF CBC #### [facility] [address] Glucose [Mass/Vol] 105 mg/dL Normal [facility] Comment on above: Result Comment: [place] Glucose Reference Range is dependent on time and content of last meal. Glucose of more than 200 mg/dL in a nonstressed, ambulatory subject supports the diagnosis of Diabetes Mellitus. PERFORMED BY: [place] [address] PATHOLOGIST DRINK WAITER DENILSON COSTA M.D. Performed By: #### B MP, DIFF CBC #### [address] Lactic Acidon 09-17-2024 Lactate [Moles/Vol] 2.4 mmol/L Off scale high 0.5-1.9 T [facility] Comment on above: Result Comment: Crit ical Result : Called to and read back by: ANGELA TREJO at: 09/17/2024 10:11:42 by:KAY Lactic Acid reference range has been updated to 0.5 ? 1.9 mmol/L and the critical range of 2.0 or greater. PERFORMED BY: [place] [address] PATHOLOGIST DRINK WAITER DENILSON COSTA M.D. Performed By: #### L ACTIC #### [address] Lactic Acid Reflexon 025 Lactic Acid Reflex 1.5 mmol/L Normal 0.5-1.9 [facility] Comment on above: Result Comment: Lact ic Acid reference range has been updated to 0.5 ? 1.9 mmol/L and the critical range of 2.0 or greater. PERFORMED BY: [place] [address] PATHOLOGIST DRINK WAITER DENILSON COSTA M.D. Performed By: #### B MP, DIFF CBC #### [place] [id number] [place] LeukoReduced RBCon 5 LeukoReduced RBC TRANSFUSED 09/17/24 1003 Normal [facility] Type and Screenon 09-17-2024 ABO and Rh group Nom (Bld) Blood group A Rh(D) positive Normal [facility] Comment on above: Order Comment: Trans fuse now? Y Number of units to transfuse now? 1 Transfuse now? Y Number of units to transfuse now? 1 Result Comment: PERF ORMED BY: [place] [address] PATHOLOGIST DRINK WAITER DENILSON COSTA M.D. XR chest 1V portableon 09-17 XR chest 1V portable [facility] [place] [address] [place] [address] XRay Report Signed Patient: Orestes Alvares MR#: [id number] : 1965 Acct:[id number] Age/Sex: 59 / F ADM Date: 09/17/24 Loc: Room: [address] [place] [address] Type: DIS IN Attending Dr: Rosalinda Alfonso DO Copies to: Rosalinda Alfonso DO Ordering Provider: Rosalinda Alfonso DO Date of Service: 09/17/24 XR/XR chest 1V portable: hypoxia Plain film chest Single view HISTORY: Hypoxia. Sepsis. COMPARISON: 09/16/2024 FINDINGS: SUPPORT DEVICES: Dialysis catheter unchanged POSTSURGICAL CHANGES: None HEART: Continued cardiomegaly PULMONARY TC: Improved hilar congestion. MEDIASTINUM: Unremarkable LUNGS AND PLEURA: Improving basilar pleural-parenchymal changes greater on the left. BONY STRUCTURES: Intact ADDITIONAL FINDINGS None XR/XR chest 1V portable IMPRESSION: Improving hilar congestion and basilar pleural-parenchymal changes. Impression dictated by: Zhen Bunch M.D. 09/17/2024 9:12 AM Dictation Location: [place] [address] Transcribed By: [facility] 09/17/24911 Dictated By: Zhen Bunch DO 09/17/24909 Signed By: 09/17/24911 Normal [facility] CT WRIST RT WO CONTon 2024 CT WRIST RT WO CONT CT WRIST RT WO CONT CT RIGHT WRIST WITHOUT CONTRAST COMPARISON: None. HISTORY: Hematoma; Lump of right wrist. Right wrist pain. TECHNIQUE: Unenhanced axial images of the right wrist obtained with sagittal and coronal 2-D reformatted images. Automatic exposure control (AEC) was [...] Antoine Martinez MD on 09/16/2024 11:16 PM Normal [facility] ALL HEMOGLOBINon 08-28-2024 Hemoglobin (Bld) [Mass/Vol] 6.9 g/dL Critically low 12.0 - 16.0 g/dL [facility] Comment on above: RESULTS CALLED TO NALINI RIVERA [facility] @BY Cristela Ewing at 2102 Interpretation and review of laboratory results Abnormal [facility] CBC AND AUTO DIFFon 07-04-19 ABSOLUTE BASOPHIL 0.0 X10E9/L Normal 0.0-0.2 [facility] Comment on above: Performed By: #### C BCA, CMP, 18243-2, 2777-1 ####[facility] ([id number])[address], [address] [place] [address] ABSOLUTE NEUTROPHIL 7.3 X10E9/L High 1.5-6.6 [facility] Comment on above: Performed By: #### C BCA, CMP, 66426-5, 2777-1 ####[facility] ([id number])[address], [address], [place] [address] Basophils/100 WBC (Bld) 0.6 % Normal P [facility] Comment on above: Performed By: #### C BCA, CMP, , 2776-04 ####[facility] ([id number])[address], [address] [place] [address] Eosinophils (Bld) [#/Vol] 0.0 10*3/uL Normal 0.0-0.4 [facility] Comment on above: Performed By: #### C BCA, CMP, , 2776-04 ####[facility] ([id number])[address], [address] [place] [address] Eosinophils/100 WBC (Bld) 0.5 % Normal [facility] Comment on above: Performed By: #### C BCA, CMP, , 2776-04 ####[facility] ([id number])[address] [address] [place] [address] Erythrocyte distribution width (RBC) [Ratio] 18.3 % High 11.5-15.0 [facility] Comment on above: Performed By: #### C BCA, CMP, , 2776-04 ####[facility] ([id number])[address], [address] [place] [address] Hematocrit (Bld) [Volume fraction] 23.7 % Low 35-47 [facility] Comment on above: Performed By: #### C BCA, CMP, , 2776-04 ####[facility] ([id number])[address] [address] [place] [address] Hemoglobin (Bld) [Mass/Vol] 7.8 g/dL Low 11.7-15.5 [facility] Comment on above: Performed By: #### C BCA, CMP, , 2776-04 ####[facility] ([id number])[address] [address] [place] [address] Lymphocytes (Bld) [#/Vol] 0.6 10*3/uL Low 1.0-3.5 [facility] Comment on above: Performed By: #### Bertha BCA, CMP, , 2776-04 ####[facility] ([id number])[address] [address] Lymphocytes/100 WBC (Bld) 7.7 % Normal [facility] Comment on above: Performed By: #### Bertha THEODORE, CMP, , 2776-04 ####[facility] ([id number])[address] [address] MCH (RBC) [Entitic mass] 31.8 pg Normal 27-34 [facility] Comment on above: Performed By: #### Bertha BCA, CMP, , 2776-04 ####[facility] ([id number])[address] [address] MCHC (RBC) [Mass/Vol] 32.8 g/dL Normal 32-36 [facility] [place] Comment on above: Performed By: #### Bertha BCA, CMP, , 2776-04 ####[facility] ([id number])[address] [address] MCV (RBC) [Entitic vol] 97 fL Normal 80-100 [facility] Comment on above: Performed By: #### Bertha BCA, CMP, , 2776-04 ####[facility] ([id number])[address] [address] Monocytes (Bld) [#/Vol] 0.1 10*3/uL Normal 0-0.9 [facility] Comment on above: Performed By: #### Bertha BCA, CMP, , 2776-04 ####[facility] ([id number])[address] [place] [address] Monocytes/100 WBC (Bld) 1.2 % Normal P [facility] Comment on above: Performed By: #### C BCA, CMP, , 2776-04 ####[facility] ([id number])[address] [place] [address] Neutrophils/100 WBC (Bld) 90.0 % Normal [facility] Comment on above: Performed By: #### C BCA, CMP, , 2776-04 ####[facility] ([id number])[address] [place] [address] Platelet mean volume (Bld) [Entitic vol] 7.2 fL Normal 7-12 [facility] Comment on above: Performed By: #### Bertha BCA, CMP, , 2776-04 ####[facility] ([id number])[address] [address] [place] [address] Platelets (Bld) [#/Vol] 330 10*3/uL Normal 150-450 [facility] Comment on above: Performed By: #### C BCA, CMP, , 2776-04 ####[facility] ([id number])[address], [address] [place] [address] RBC COUNT 2.45 X10E12/L Low 3.80-5.20 [facility] Comment on above: Performed By: #### C BCA, CMP, , 2776-04 ####[facility] ([id number])[address], [address] [place] [address] WBC (Bld) [#/Vol] 8.1 10*3/uL Normal 4.0-11.0 [facility] Comment on above: Performed By: #### C BCA, CMP, , 2776-04 ####[facility] ([id number])[address], [address], [place] [address] COMPREHENSIVE METABOLIC PANE Kael 07-03-2024 Albumin [Mass/Vol] 4.2 g/dL Normal 3.2-5.3 [facility] Comment on above: Performed By: #### C BCA, CMP, , 2776-04 ####[facility] ([id number])[address], [address], [place] [address] ALP [Catalytic activity/Vol] 60 U/L Normal 39-130 [facility] Comment on above: Performed By: #### C BCA, CMP, , 2776-04 ####[facility] ([id number])[address], [address], [place] [address] ALT [Catalytic activity/Vol] 6 U/L Normal 0-31 [facility] Comment on above: Performed By: #### C BCA, CMP, , 2776-04 ####[facility] ([id number])[address], [address], [place] [address] Anion gap [Moles/Vol] 12 mmol/L Normal 5-15 [facility] Comment on above: Performed By: #### C BCA, CMP, , 2776-04 ####[facility] ([id number])[address], [address], [place] [address] AST [Catalytic activity/Vol] 9 U/L Normal 0-41 [facility] Comment on above: Performed By: #### C BCA, CMP, , 2776-04 ####[facility] ([id number])[address], [address], [place] [address] Bilirubin [Mass/Vol] 1.2 mg/dL Normal 0.3-1.2 [facility] Comment on above: Performed By: #### C BCA, CMP, , 2776-04 ####[facility] ([id number])[address], [place] [address] Calcium [Mass/Vol] 9.8 mg/dL Normal 8.5-10.5 [facility] Comment on above: Performed By: #### C BCA, CMP, , 2776-04 ####[facility] ([id number])[address], [place] [address] Chloride [Moles/Vol] 100 mmol/L Normal 98-109 [facility] Comment on above: Performed By: #### C BCA, CMP, , 2776-04 ####[facility] ([id number])[address] [address], [place] [address] CO2 [Moles/Vol] 24 mmol/L Normal 22-32 [facility] Comment on above: Performed By: #### C BCA, CMP, , 2776-04 ####[facility] ([id number])[address] [address] [place] [address] Creatinine [Mass/Vol] 2.02 mg/dL High 0.40-1.00 [facility] Comment on above: Result Comment: METH OD TRACEABLE TO IDMS STANDARD Performed By: #### C BCA, CMP, , 2776-04 ####[facility] ([id number])[address] [address], [place] [address] GFR/1.73 sq M.predicted among non-blacks MDRD (S/P/Bld) [Vol rate/Area] 28 mL/min/{1.73_m2} Low >59 [facility] Comment on above: Result Comment: Repo rted eGFR is based on theCKD-EPI 2020 equation that doesnot use a race coefficient. Performed By: #### C BCA, CMP, 78505-727[address]-04 ####[facility] ([id number])[address], [address], [place] [address] Glucose [Mass/Vol] 131 mg/dL High 65-99 [facility] Comment on above: Performed By: #### C BCA, CMP, , 2776-04 ####[facility] ([id number])[address], [address], [place] [address] Potassium [Moles/Vol] 4.5 mmol/L Normal 3.5-5.0 [facility] Comment on above: Performed By: #### C EWELINA, CMP, , 2776-04 ####[facility] ([id number])[address], [address], [place] [address] Protein [Mass/Vol] 7.4 g/dL Normal 6.0-8.0 [facility] Comment on above: Performed By: #### C BCA, CMP, , 2776-04 ####[facility] ([id number])[address], [address], [place] [address] Sodium [Moles/Vol] 136 mmol/L Normal 134-146 [facility] Comment on above: Performed By: #### C BCA, CMP, , 2776-04 ####[facility] ([id number])[address], [address], [place] [address] Urea nitrogen [Mass/Vol] 32 mg/dL High 5-27 [facility] Comment on above: Performed By: #### C BCA, CMP, , 2776-04 ####[facility] ([id number])[address], [address], [place] [address] IR PORT TUNLD DIAL/CENT LINE > 5 YRSon 07-03-2024 IR PORT TUNLD DIAL/CENT LINE > 5 YRS Normal [facility] MAGNESIUMon 03-26-2025 Magnesium [Mass/Vol] 2.1 mg/dL Normal 1.8-2.6 [facility] Comment on above: Performed By: #### C BCA, CMP, 07891-4, 2777-1 ####[facility] ([id number])[address], [place] [address] PHOSPHORUSon 07-03-2024 Phosphate [Mass/Vol] 3.6 mg/dL Normal 2.4-4.9 [facility] Comment on above: Performed By: #### C BCA, CMP, , 2776- ####[facility] ([id number])[address], [place] [address] XR CHEST 1 VWon 07-03-2024 XR CHEST 1 VW Normal [facility] AFB CULTURE(CONCENTRATED)on 07-02-2024 Mycobacterium sp identified Org specific cx Nom (Unsp spec) AFB SMEAR NO ACID FAST BACILLI (CONCENTRATED SMEAR) CULTURE RESULTS NO ACID FAST BACILLI ISOLATED IN 8 WEEKS Normal [facility] Comment on above: Performed By: #### 5 43-9 ####[facility] ([id number])[address], [address] [place] [address] ARTERIAL BLOOD GASon 025 ROBERT'S TEST Normal [facility] Comment on above: Performed By: #### A BG ####[facility] ([id number])[address] [place] [address] BASE,DEFICIT 4.0 MMOL/L High 0.0-2.0 [facility] Comment on above: Performed By: #### A BG ####[facility] ([id number])[address] [place] [address] Body temperature 98.6 [degF] Normal 37.0 [facility] Comment on above: Performed By: #### A BG ####[facility] ([id number])[address] [place] [address] HCO3 (Bld) [Moles/Vol] 23.2 mmol/L Normal 22-26 [facility] Comment on above: Performed By: #### A BG ####[facility] ([id number])[address] [place] [address] INSP. O2 CONC. 28 % Normal [facility] Comment on above: Performed By: #### A BG ####[facility] ([id number])[address] [place] [address] Oxygen (Bld) [Partial pressure] 66 mm[Hg] Low 80-100 [facility] Comment on above: Performed By: #### A BG ####[facility] ([id number])[address] [place] [address] Oxygen saturation in Blood 89.0 % Low >90 [facility] Comment on above: Performed By: #### A BG ####[facility] ([id number])[address] [place] [address] OXYGEN SOURCE NPPV Normal [facility] Comment on above: Performed By: #### A BG ####[facility] ([id number])[address] [place] [address] PCO2 52.7 MMHG High 35-45 [facility] Comment on above: Performed By: #### A BG ####[facility] ([id number])[address] [place] [address] pH (Bld) 7.252 [pH] Low 7.350-7.45 0 [facility] Comment on above: Performed By: #### A BG ####[facility] ([id number])[address] [place] [address] SAMPLE SITE RRad Normal [facility] Comment on above: Performed By: #### A BG ####[facility] ([id number])[address] [place] [address] SAMPLE TYPE ARTERIAL Normal [facility] Comment on above: Performed By: #### A BG ####[facility] ([id number])[address] [facility] [place] [address] AND DIFFon 2024 BODY FLUID COMMENT Interpreta tion- ------- Normal [facility] Comment on above: Result Comment: Refe rence values for this fluid type areundefined, as fluid accumulation isconsidered abnormal.Assorted lining cells present.Corrected on 07/03 AT 0544: Previously reported as Interpretation Reference values for this fluid type are undefined, as fluid accumulation is considered abnormal. Performed By: #### B FCT ####[facility] ([id number])[address], [place] [address] FLUID CLARITY HAZY Normal [facility] Comment on above: Performed By: #### B FCT ####[facility] ([id number])[address], [place] [address] FLUID COLOR YELLOW Normal [facility] Comment on above: Performed By: #### B FCT ####[facility] ([id number])[address], [address] [place] [address] FLUID LYMPHOCYTE 3 % Normal [facility] Comment on above: Performed By: #### B FCT ####[facility] ([id number])[address], [address], [place] [address] FLUID NEUTROPHILS 18 % Normal [facility] Comment on above: Performed By: #### B FCT ####[facility] ([id number])[address], [address], [place] [address] 220 /uL Normal [facility] Comment on above: Performed By: #### B FCT ####[facility] ([id number])[address] [place] [address] FLUID SPECIMEN TYPE BRONCHOALVEOLAR LAVAGE Normal [facility] Comment on above: Result Comment: LEFT LUNG, LOWER LOBE Performed By: #### B FCT ####[facility] ([id number])[address], [place] [address] MACROPHAGES 79 % Normal [facility] Comment on above: Performed By: #### B FCT ####[facility] ([id number])[address] [place] [address] 76 /uL Normal [facility] Comment on above: Performed By: #### B FCT ####[facility] ([id number])[address] [place] [address] CBC AND AUTO DIFFon 25-20 25 ABSOLUTE BASOPHIL 0.0 X10E9/L Normal 0.0-0.2 [facility] Comment on above: Performed By: #### C BCA, CMP, , 2776- ####[facility] ([id number])[address] [place] [address] ABSOLUTE NEUTROPHIL 4.2 X10E9/L Normal 1.5-6.6 [facility] Comment on above: Performed By: #### C BCA, CMP, , 2776-1 ####[facility] ([id number])[address] [place] [address] Basophils/100 WBC (Bld) 0.6 % Normal P [facility] Comment on above: Performed By: #### C BCA, CMP, , 2776- ####[facility] ([id number])[address] [place] [address] Eosinophils (Bld) [#/Vol] 0.9 10*3/uL High 0.0-0.4 [facility] Comment on above: Performed By: #### C EWELINA, CMP, , 2776-04 ####[facility] ([id number])[address], [place] [address] Eosinophils/100 WBC (Bld) 12.5 % Normal [facility] Comment on above: Performed By: #### C EWELINA, CMP, , 2776-04 ####[facility] ([id number])[address], [place] [address] Erythrocyte distribution width (RBC) [Ratio] 17.8 % High 11.5-15.0 [facility] Comment on above: Performed By: #### Bertha THEODORE, CMP, , 2776-04 ####[facility] ([id number])[address], [place] [address] Hematocrit (Bld) [Volume fraction] 23.1 % Low 35-47 [facility] Comment on above: Performed By: #### C EWELINA, CMP, , 2776-04 ####[facility] ([id number])[address] [facility] [address], [place] [address] Hemoglobin (Bld) [Mass/Vol] 7.6 g/dL Low 11.7-15.5 [facility] Comment on above: Performed By: #### C BCA, CMP, , 2776-04 ####[facility] ([id number])[address] [address], [place] [address] Lymphocytes (Bld) [#/Vol] 1.2 10*3/uL Normal 1.0-3.5 [facility] Comment on above: Performed By: #### C BCA, CMP, , 2776-04 ####[facility] ([id number])[address] [facility] [address], [place] [address] Lymphocytes/100 WBC (Bld) 16.4 % Normal [facility] Comment on above: Performed By: #### C BCA, CMP, , 2776-04 ####[facility] ([id number])[address] [place] [address] MCH (RBC) [Entitic mass] 31.4 pg Normal 27-34 [facility] Comment on above: Performed By: #### C BCA, CMP, , 2776-04 ####[facility] ([id number])[address] [address] [place] [address] MCHC (RBC) [Mass/Vol] 32.8 g/dL Normal 32-36 [facility] Comment on above: Performed By: #### C BCA, CMP, , 2776-04 ####[facility] ([id number])[address] [address] [place] [address] MCV (RBC) [Entitic vol] 96 fL Normal 80-100 [facility] Comment on above: Performed By: #### Bertha BCA, CMP, , 2776-04 ####[facility] ([id number])[address] [address] [place] [address] Monocytes (Bld) [#/Vol] 0.7 10*3/uL Normal 0-0.9 [facility] Comment on above: Performed By: #### C BCA, CMP, , 2776-04 ####[facility] ([id number])[address] [address] [place] [address] Monocytes/100 WBC (Bld) 10.4 % Normal [facility] Comment on above: Performed By: #### C BCA, CMP, , 2776-04 ####[facility] ([id number])[address] [address] [place] [address] Neutrophils/100 WBC (Bld) 60.1 % Normal [facility] Comment on above: Performed By: #### C BCA, CMP, , 2776-04 ####[facility] ([id number])[address], [address] [place] [address] Platelet mean volume (Bld) [Entitic vol] 7.0 fL Normal 7-12 [facility] Comment on above: Performed By: #### C BCA, CMP, , 2776-04 ####[facility] ([id number])[address], [address], [place] [address] Platelets (Bld) [#/Vol] 376 10*3/uL Normal 150-450 [facility] Comment on above: Performed By: #### C BCA, CMP, , 2776-04 ####[facility] ([id number])[address], [address], [place] [address] RBC COUNT 2.42 X10E12/L Low 3.80-5.20 [facility] Comment on above: Performed By: #### C BCA, CMP, , 2776-04 ####[facility] ([id number])[address] [address] [place] [address] WBC (Bld) [#/Vol] 7.1 10*3/uL Normal 4.0-11.0 [facility] Comment on above: Performed By: #### C BCA, CMP, , 2776-04 ####[facility] ([id number])[address] [place] [address] COMPREHENSIVE METABOLIC PANE Kael 07-02-2024 Albumin [Mass/Vol] 3.7 g/dL Normal 3.2-5.3 [facility] Comment on above: Performed By: #### C BCA, CMP, , 2776-04 ####[facility] ([id number])[address], [address], [place] [address] ALP [Catalytic activity/Vol] 56 U/L Normal 39-130 [facility] Comment on above: Performed By: #### C BCA, CMP, , 2776-04 ####[facility] ([id number])[address], [place] [address] ALT [Catalytic activity/Vol] 5 U/L Normal 0-31 [facility] Comment on above: Performed By: #### C BCA, CMP, , 2776-04 ####[facility] ([id number])[address], [place] [address] Anion gap [Moles/Vol] 14 mmol/L Normal 5-15 [facility] Comment on above: Performed By: #### C BCA, CMP, , 2776-04 ####[facility] ([id number])[address], [address], [place] [address] AST [Catalytic activity/Vol] 8 U/L Normal 0-41 [facility] Comment on above: Performed By: #### C BCA, CMP, , 2776-04 ####[facility] ([id number])[address], [place] [address] Bilirubin [Mass/Vol] 1.0 mg/dL Normal 0.3-1.2 [facility] Comment on above: Performed By: #### C BCA, CMP, , 2776-04 ####[facility] ([id number])[address], [place] [address] Calcium [Mass/Vol] 10.5 mg/dL Normal 8.5-10.5 [facility] Comment on above: Performed By: #### C BCA, CMP, , 2776-04 ####[facility] ([id number])[address], [place] [address] Chloride [Moles/Vol] 105 mmol/L Normal 98-109 [facility] Comment on above: Performed By: #### C RENA THEODORE, , 2776-04 ####[facility] ([id number])[address], [place] [address] CO2 [Moles/Vol] 25 mmol/L Normal 22-32 [facility] Comment on above: Performed By: #### C RENA THEODORE, , 2776-04 ####[facility] ([id number])[address], [place] [address] Creatinine [Mass/Vol] 4.12 mg/dL High 0.40-1.00 [facility] Comment on above: Result Comment: METH OD TRACEABLE TO IDMS STANDARD Performed By: #### C RENA THEODORE, , 2776-04 ####[facility] ([id number])[address] [address], [place] [address] GFR/1.73 sq M.predicted among non-blacks MDRD (S/P/Bld) [Vol rate/Area] 12 mL/min/{1.73_m2} Low >59 [facility] Comment on above: Result Comment: Repo rted eGFR is based on theCKD-EPI 2020 equation that doesnot use a race coefficient. Performed By: #### C RENA THEODORE, , 2776-04 ####[facility] ([id number])[address] [address], [place] [address] Glucose [Mass/Vol] 92 mg/dL Normal 65-99 [facility] Comment on above: Performed By: #### C RENA THEODORE, , 2776-04 ####[facility] ([id number])[address] [address], [place] [address] Potassium [Moles/Vol] 3.8 mmol/L Normal 3.5-5.0 [facility] Comment on above: Performed By: #### C BCA, CMP, 91812-8, 2777-1 ####[facility] ([id number])[address], [place] [address] Protein [Mass/Vol] 6.7 g/dL Normal 6.0-8.0 [facility] Comment on above: Performed By: #### C BCA, CMP, , 2776-1 ####[facility] ([id number])[address], [place] [address] Sodium [Moles/Vol] 144 mmol/L Normal 134-146 [facility] Comment on above: Performed By: #### C BCA, CMP, , 2777-1 ####[facility] ([id number])[address], [place] [address] Urea nitrogen [Mass/Vol] 80 mg/dL High 5-27 [facility] Comment on above: Performed By: #### C BCA, CMP, , 2777-1 ####[facility] ([id number])[address] [place] [address] Cytologyon 07-02-2024 Cytology Normal [facility] Comment on above: Result Comment: [facility] [address] [place] [address] Cytology ConsultationPatient Name:ORESTES ALVARES:1965 (Age: 59)Gender:FTaken:07/02/2024Reported:07/03/2024 16:31Physician(s):Quintin Forman M.D. ([phone])Copy To: Rec. #:[id number]: #[id number] Cytologic DiagnosisLung, left lower lobe, bronchoalveolar lavage:No malignant cells identified.ao07/03/2024Interpretation performed at [facility], [address] [place] [address], License number: [id number].Electronically Signed Out By Earl Boone MDClinical HistoryMucus plug in respiratory tract [T17.998A]. Acute hypoxic respiratory failure (CMS-HCC) [J96.01].Gross DescriptionReceived was 5ml of clear colorless fluid unfixed labeled as [place], lung, left lower lobe, BAL . CytoLyt added in lab. Unable to obtain cellblock, ThinPrep made.Source of Specimen Lung, left lower lobe, bronchoalveolar lavage Non [employer]NAGER ThinPrepFee Code(s):1; 80020 FUNGAL CULTUREon 07-02-2024 Fungus identified Cx Nom (Unsp spec) FUNGAL SMEAR NO FUNGAL ELEMENTS SEEN ON DIRECT SMEAR CULTURE RESULTS MABLE ALBICANS Abnormal [facility] Comment on above: Performed By: #### 5 80-1 ####[facility] ([id number])[address] [place] [address] LOWER RESPIRATORY CULTUREon 07-02-2024 Bacteria identified Respiratory culture Nom (Sput) Susceptible [facility] Comment on above: Performed By: #### 6 24-7 ####[facility] ([id number])[address] [place] [address] MAGNESIUMon 07-02-2024 Magnesium [Mass/Vol] 1.9 mg/dL Normal 1.8-2.6 [facility] Comment on above: Performed By: #### C BCA, CMP, 36722-5, 2777-1 ####[facility] ([id number])[address] [place] [address] Magnesium Ionized ISE (Bld) [Moles/Vol]on 07-02-2024 Magnesium [Moles/Vol] 0.71 mmol/L Normal 0.45-0.74 [facility] Comment on above: Result Comment: NEW REFERENCE RANGE Performed By: #### 7 3572-0 ####[facility] ([id number])[address] [place] [address] PHOSPHORUSon 07-02-2024 Phosphate [Mass/Vol] 5.2 mg/dL High 2.4-4.9 [facility] Comment on above: Performed By: #### C BCA, CMP, 88269-1, 2777-1 ####[facility] ([id number])[address] [place] [address] POTASSIUMon 07-02-2024 Potassium [Moles/Vol] 4.2 mmol/L Normal 3.5-5.0 [facility] Comment on above: Performed By: #### 2 823-3 ####[facility] ([id number])[address] [place] [address] PROTIME AND INRon 07-02-2024 INR Coag (PPP) [Relative time] 1.2 {INR} Normal 0.9-1.2 [facility] Comment on above: Performed By: #### P INR ####[facility] ([id number])[address], [address] [place] [id number] PT Coag (PPP) [Time] 13.5 s High 9.8-13.2 [facility] Comment on above: Performed By: #### P INR ####[facility] ([id number])[address], [address] [place] [id number] XR CHEST 1 VWon 07-02-2024 XR CHEST 1 VW Normal [facility] XR CHEST 1 VW Normal [facility] CBC AND AUTO DIFFon 07-02-19 25 ABSOLUTE BASOPHIL 0.1 X10E9/L Normal 0.0-0.2 [facility] Comment on above: Performed By: #### C BCA, CMP, , 2777-1 ####[facility] ([id number])[address], [address] [place] [address] ABSOLUTE NEUTROPHIL 3.9 X10E9/L Normal 1.5-6.6 [facility] Comment on above: Performed By: #### C BCA, CMP, , 2776-04 ####[facility] ([id number])[address], [address], [place] [address] Basophils/100 WBC (Bld) 2.0 % Normal [facility] Comment on above: Performed By: #### C BCA, CMP, , 2776-04 ####[facility] ([id number])[address], [address], [place] [address] Eosinophils (Bld) [#/Vol] 1.0 10*3/uL High 0.0-0.4 [facility] Comment on above: Performed By: #### C BCA, CMP, , 2776-04 ####[facility] ([id number])[address], [address], [place] [address] Eosinophils/100 WBC (Bld) 14.0 % Normal [facility] Comment on above: Performed By: #### C BCA, CMP, , 2776-04 ####[facility] LAB ([id number])[address], [address], [place] [address] Erythrocyte distribution width (RBC) [Ratio] 17.8 % High 11.5-15.0 [facility] Comment on above: Performed By: #### C BCA, CMP, , 2776-04 ####[facility] ([id number])[address], [address] [place] [address] Hematocrit (Bld) [Volume fraction] 23.7 % Low 35-47 [facility] Comment on above: Performed By: #### C BCA, CMP, , 2776-04 ####[facility] ([id number])[address], [address] [place] [address] Hemoglobin (Bld) [Mass/Vol] 7.7 g/dL Low 11.7-15.5 [facility] Comment on above: Performed By: #### C EWELINA, CMP, , 2776-04 ####[facility] ([id number])[address], [address] [place] [address] Lymphocytes (Bld) [#/Vol] 1.4 10*3/uL Normal 1.0-3.5 [facility] Comment on above: Performed By: #### C EWELINA, CMP, , 2776-04 ####[facility] ([id number])[address], [address], [place] [address] Lymphocytes/100 WBC (Bld) 19.6 % Normal [facility] Comment on above: Performed By: #### Bertha BCA, CMP, , 2776-04 ####[facility] ([id number])[address], [address] [place] [address] MCH (RBC) [Entitic mass] 31.1 pg Normal 27-34 [facility] Comment on above: Performed By: #### C EWELINA, CMP, , 2776-04 ####[facility] ([id number])[address], [address] [place] [address] MCHC (RBC) [Mass/Vol] 32.5 g/dL Normal 32-36 [facility] Comment on above: Performed By: #### C BCA, CMP, , 2776-04 ####[facility] ([id number])[address], [address], [place] [address] MCV (RBC) [Entitic vol] 96 fL Normal 80-100 [facility] Comment on above: Performed By: #### C BCA, CMP, , 2776-04 ####[facility] ([id number])[address], [address], [place] [address] Monocytes (Bld) [#/Vol] 0.6 10*3/uL Normal 0-0.9 [facility] Comment on above: Performed By: #### C BCA, CMP, , 2776-04 ####[facility] ([id number])[address], [address] [place] [address] Monocytes/100 WBC (Bld) 8.8 % Normal [facility] Comment on above: Performed By: #### C EWELINA, CMP, , 2776-04 ####[facility] ([id number])[address], [address] [place] [address] Neutrophils/100 WBC (Bld) 55.6 % Normal [facility] Comment on above: Performed By: #### Bertha BCA, CMP, , 2776-04 ####[facility] ([id number])[address], [address] [place] [address] Platelet mean volume (Bld) [Entitic vol] 6.9 fL Low 7-12 [facility] Comment on above: Performed By: #### Bertha BCA, CMP, , 2776-04 ####[facility] ([id number])[address], [address] [place] [address] Platelets (Bld) [#/Vol] 417 10*3/uL Normal 150-450 [facility] Comment on above: Performed By: #### C BCA, CMP, , 2776-04 ####[facility] ([id number])[address], [address], [place] [address] RBC COUNT 2.47 X10E12/L Low 3.80-5.20 [facility] Comment on above: Performed By: #### C BCA, CMP, , 2776-04 ####[facility] ([id number])[address], [address], [place] [address] WBC (Bld) [#/Vol] 7.1 10*3/uL Normal 4.0-11.0 [facility] Comment on above: Performed By: #### C BCA, CMP, , 2776-04 ####[facility] ([id number])[address], [address], [place] [address] COMPREHENSIVE METABOLIC PANE Kael 07-01-2024 Albumin [Mass/Vol] 3.7 g/dL Normal 3.2-5.3 [facility] Comment on above: Performed By: #### C BCA, CMP, , 2776-04 ####[facility] ([id number])[address], [address], [place] [address] ALP [Catalytic activity/Vol] 61 U/L Normal 39-130 [facility] Comment on above: Performed By: #### C BCA, CMP, , 2776-04 ####[facility] ([id number])[address] [address], [place] [address] ALT [Catalytic activity/Vol] 4 U/L Normal 0-31 [facility] Comment on above: Performed By: #### C BCA, CMP, , 2776-04 ####[facility] ([id number])[address], [address] [place] [address] Anion gap [Moles/Vol] 16 mmol/L High 5-15 [facility] Comment on above: Performed By: #### C BCA, CMP, , 2776-04 ####[facility] ([id number])[address], [address], [place] [address] AST [Catalytic activity/Vol] 10 U/L Normal 0-41 [facility] Comment on above: Performed By: #### C BCA, CMP, , 2776-04 ####[facility] ([id number])[address], [address], [place] [address] Bilirubin [Mass/Vol] 1.1 mg/dL Normal 0.3-1.2 [facility] Comment on above: Performed By: #### C BCA, CMP, , 2776-04 ####[facility] ([id number])[address] [place] [address] Calcium [Mass/Vol] 10.6 mg/dL High 8.5-10.5 [facility] Comment on above: Performed By: #### C BCA, CMP, , 2776-04 ####[facility] ([id number])[address] [place] [address] Chloride [Moles/Vol] 106 mmol/L Normal 98-109 [facility] Comment on above: Performed By: #### C BCA, CMP, , 2776-04 ####[facility] ([id number])[address], [address], [place] [address] CO2 [Moles/Vol] 22 mmol/L Normal 22-32 [facility] Comment on above: Performed By: #### C BCA, CMP, , 2776-04 ####[facility] ([id number])[address] [address], [place] [address] Creatinine [Mass/Vol] 3.99 mg/dL High 0.40-1.00 [facility] Comment on above: Result Comment: METH OD TRACEABLE TO IDMS STANDARD Performed By: #### C BCA, CMP, , 2776-04 ####[facility] ([id number])[address], [address], [place] [address] GFR/1.73 sq M.predicted among non-blacks MDRD (S/P/Bld) [Vol rate/Area] 12 mL/min/{1.73_m2} Low >59 [facility] Comment on above: Result Comment: Repo rted eGFR is based on theCKD-EPI 2020 equation that doesnot use a race coefficient. Performed By: #### C EWELINA CMP, , 2776-04 ####[facility] ([id number])[address], [address], [place] [address] Glucose [Mass/Vol] 76 mg/dL Normal 65-99 [facility] Comment on above: Performed By: #### C EWELINA CMP, , 2776-04 ####[facility] ([id number])[address], [address], [place] [address] Potassium [Moles/Vol] 4.0 mmol/L Normal 3.5-5.0 [facility] Comment on above: Performed By: #### C EWELINA, CMP, , 2776-04 ####[facility] ([id number])[address], [address], [place] [address] Protein [Mass/Vol] 6.9 g/dL Normal 6.0-8.0 [facility] Comment on above: Performed By: #### C EWELINA CMP, , 2776-04 ####[facility] ([id number])[address], [address], [place] [address] Sodium [Moles/Vol] 144 mmol/L Normal 134-146 [facility] Comment on above: Performed By: #### C BCA, CMP, , 2776-04 ####[facility] ([id number])[address], [address], [place] [address] Urea nitrogen [Mass/Vol] 83 mg/dL High 5-27 [facility] Comment on above: Performed By: #### C BCA CMP, , 2776-04 ####[facility] ([id number])[address] [address], [place] [address] Calcium.ionized (Bld) [Mass/ Vol]on 07-01-2024 IONIZED CALCIUM 5.6 mg/dL High 4.5-5.3 [facility] Comment on above: Performed By: #### 3 8230-9, 69374-4 ####[facility] ([id number])[address] [address] [place] [address] FL SWALLOW MOTILITY FUNCTION on 07-01-2024 FL SWALLOW MOTILITY FUNCTION Normal [facility] MAGNESIUMon 07-01-2024 Magnesium [Mass/Vol] 2.1 mg/dL Normal 1.8-2.6 [facility] Comment on above: Performed By: #### C RENA HTEODORE, , 2776-04 ####[facility] ([id number])[address] [address] [place] [address] Magnesium Ionized ISE (Bld) [Moles/Vol]on 07-01-2024 Magnesium [Moles/Vol] 0.48 mmol/L Normal 0.45-0.74 [facility] Comment on above: Result Comment: NEW REFERENCE RANGE Performed By: #### 3 8230-9, 10701-0 ####[facility] ([id number])[address] [address] [place] [address] PHOSPHORUSon 07-01-2024 Phosphate [Mass/Vol] 5.3 mg/dL High 2.4-4.9 [facility] Comment on above: Performed By: #### C EWELINA CMP, , 2776-04 ####[facility] ([id number])[address], [address] [place] [address] XR CHEST 1 VWon 07-01-2024 XR CHEST 1 VW Normal [facility] CBC AND AUTO DIFFon 03-23-20 25 ABSOLUTE BASOPHIL 0.1 X10E9/L Normal 0.0-0.2 [facility] Comment on above: Performed By: #### C BCA, CMP, , 2776-04 ####[facility] ([id number])[address], [address] [place] [address] ABSOLUTE NEUTROPHIL 3.9 X10E9/L Normal 1.5-6.6 [facility] Comment on above: Performed By: #### C BCA, [facility], , 2776-04 ####[facility] ([id number])[address], [address], [place] [address] Basophils/100 WBC (Bld) 0.8 % Normal [facility] Comment on above: Performed By: #### C BCA, CMP, , 2776-04 ####[facility] ([id number])[address], [address], [place] [address] Eosinophils (Bld) [#/Vol] 0.9 10*3/uL High 0.0-0.4 [facility] Comment on above: Performed By: #### C BCA, CMP, , 2776-04 ####[facility] ([id number])[address], [address], [place] [address] Eosinophils/100 WBC (Bld) 13.3 % Normal [facility] Comment on above: Performed By: #### C BCA, CMP, , 2776-04 ####[facility] ([id number])[address], [address] [place] [address] Erythrocyte distribution width (RBC) [Ratio] 18.3 % High 11.5-15.0 [facility] Comment on above: Performed By: #### C BCA, CMP, , 2776-04 ####[facility] ([id number])[address], [address] [place] [address] Hematocrit (Bld) [Volume fraction] 22.7 % Low 35-47 [facility] Comment on above: Performed By: #### C EWELINA, CMP, , 2776-04 ####[facility] ([id number])[address], [address], [place] [address] Hemoglobin (Bld) [Mass/Vol] 7.5 g/dL Low 11.7-15.5 [facility] Comment on above: Performed By: #### C EWELINA, CMP, , 2776-04 ####[facility] ([id number])[address], [address] [place] [address] Lymphocytes (Bld) [#/Vol] 1.2 10*3/uL Normal 1.0-3.5 [facility] Comment on above: Performed By: #### Bertha THEODORE, CMP, , 2776-04 ####[facility] ([id number])[address], [address] [place] [address] Lymphocytes/100 WBC (Bld) 18.2 % Normal [facility] Comment on above: Performed By: #### Bertha BCA, CMP, , 2776-04 ####[facility] ([id number])[address], [address] [place] [address] MCH (RBC) [Entitic mass] 31.5 pg Normal 27-34 [facility] Comment on above: Performed By: #### C BCA, CMP, , 2776-04 ####[facility] ([id number])[address], [address] [place] [address] MCHC (RBC) [Mass/Vol] 32.9 g/dL Normal 32-36 [facility] Comment on above: Performed By: #### Bertha BCA, CMP, , 2776-04 ####[facility] ([id number])[address], [address], [place] [address] MCV (RBC) [Entitic vol] 96 fL Normal 80-100 [facility] Comment on above: Performed By: #### C BCA, CMP, , 2776-04 ####[facility] ([id number])[address], [address], [place] [address] Monocytes (Bld) [#/Vol] 0.8 10*3/uL Normal 0-0.9 [facility] Comment on above: Performed By: #### C BCA, CMP, , 2776-04 ####[facility] ([id number])[address], [address], [place] [address] Monocytes/100 WBC (Bld) 11.2 % Normal [facility] Comment on above: Performed By: #### Bertha BCA, CMP, , 2776-04 ####[facility] ([id number])[address], [address] [place] [address] Neutrophils/100 WBC (Bld) 56.5 % Normal [facility] Comment on above: Performed By: #### Bertha BCA, CMP, , 2776-04 ####[facility] ([id number])[address], [address], [place] [address] Platelet mean volume (Bld) [Entitic vol] 6.8 fL Low 7-12 [facility] Comment on above: Performed By: #### C BCA, CMP, , 2776-04 ####[facility] ([id number])[address], [address], [place] [address] Platelets (Bld) [#/Vol] 443 10*3/uL Normal 150-450 [facility] Comment on above: Performed By: #### C BCA, CMP, , 2776-04 ####[facility] ([id number])[address], [address], [place] [address] RBC COUNT 2.37 X10E12/L Low 3.80-5.20 [facility] Comment on above: Performed By: #### C BCA, CMP, , 2776-04 ####[facility] ([id number])[address] [address] [place] [address] WBC (Bld) [#/Vol] 6.9 10*3/uL Normal 4.0-11.0 [facility] Comment on above: Performed By: #### C BCA, CMP, , 2776-04 ####[facility] ([id number])[address], [address] [place] [address] COMPREHENSIVE METABOLIC PANE Kael 06-30-2024 Albumin [Mass/Vol] 3.9 g/dL Normal 3.2-5.3 [facility] Comment on above: Performed By: #### C BCA, CMP, , 2776-04 ####[facility] ([id number])[address] [address] [place] [address] ALP [Catalytic activity/Vol] 60 U/L Normal 39-130 [facility] Comment on above: Performed By: #### C BCA, CMP, , 2776-04 ####[facility] ([id number])[address] [address] [place] [address] ALT [Catalytic activity/Vol] 5 U/L Normal 0-31 [facility] Comment on above: Performed By: #### C BCA, CMP, , 2776-04 ####[facility] ([id number])[address] [address] [place] [address] Anion gap [Moles/Vol] 13 mmol/L Normal 5-15 [facility] Comment on above: Performed By: #### C BCA, CMP, , 2776-04 ####[facility] ([id number])[address], [address], [place] [address] AST [Catalytic activity/Vol] 11 U/L Normal 0-41 [facility] Comment on above: Performed By: #### C BCA, CMP, , 2776-04 ####[facility] ([id number])[address], [address], [place] [address] Bilirubin [Mass/Vol] 1.0 mg/dL Normal 0.3-1.2 [facility] Comment on above: Performed By: #### C BCA, CMP, , 2776-04 ####[facility] ([id number])[address], [address], [place] [address] Calcium [Mass/Vol] 10.5 mg/dL Normal 8.5-10.5 [facility] Comment on above: Performed By: #### C BCA, CMP, , 2776-04 ####[facility] ([id number])[address], [address], [place] [address] Chloride [Moles/Vol] 103 mmol/L Normal 98-109 [facility] Comment on above: Performed By: #### C BCA, CMP, , 2776-04 ####[facility] ([id number])[address], [address], [place] [address] CO2 [Moles/Vol] 25 mmol/L Normal 22-32 [facility] Comment on above: Performed By: #### C BCA, CMP, , 2776-04 ####[facility] ([id number])[address], [address], [place] [address] Creatinine [Mass/Vol] 3.76 mg/dL High 0.40-1.00 [facility] Comment on above: Result Comment: METH OD TRACEABLE TO IDMS STANDARD Performed By: #### C RENA THEODORE, , 2776-04 ####[facility] ([id number])[address] [address], [place] [address] GFR/1.73 sq M.predicted among non-blacks MDRD (S/P/Bld) [Vol rate/Area] 13 mL/min/{1.73_m2} Low >59 [facility] Comment on above: Result Comment: Repo rted eGFR is based on theCKD-EPI 2020 equation that doesnot use a race coefficient. Performed By: #### C EWELINA CMP, , 2776-04 ####[facility] ([id number])[address] [address] Glucose [Mass/Vol] 90 mg/dL Normal 65-99 [facility] Comment on above: Performed By: #### C EWELINA CMP, , 2776-04 ####[facility] ([id number])[address] [address] [place] [address] Potassium [Moles/Vol] 3.8 mmol/L Normal 3.5-5.0 [facility] Comment on above: Performed By: #### C EWELINA CMP, , 2776-04 ####[facility] ([id number])[address] [address] Protein [Mass/Vol] 7.1 g/dL Normal 6.0-8.0 [facility] Comment on above: Performed By: #### C BCA, CMP, , 2776-04 ####[facility] ([id number])[address] [address] Sodium [Moles/Vol] 141 mmol/L Normal 134-146 [facility] Comment on above: Performed By: #### C BCA, CMP, , 2776-04 ####[facility] ([id number])[address], [place] [address] Urea nitrogen [Mass/Vol] 84 mg/dL High 5-27 [facility] Comment on above: Performed By: #### C EWELINA CMP, , 2776-04 ####[facility] ([id number])[address], [place] [address] MAGNESIUMon 06-30-2024 Magnesium [Mass/Vol] 2.2 mg/dL Normal 1.8-2.6 [facility] Comment on above: Performed By: #### C RENA THEODORE, , 2776-04 ####[facility] ([id number])[address], [place] [address] PHOSPHORUSon 06-30-2024 Phosphate [Mass/Vol] 5.2 mg/dL High 2.4-4.9 [facility] Comment on above: Performed By: #### C EWELINA, CMP, , 2776-04 ####[facility] ([id number])[address] [place] [address] POTASSIUMon 06-30-2024 Potassium [Moles/Vol] 4.6 mmol/L Normal 3.5-5.0 [facility] Comment on above: Performed By: #### 2 823-3 ####[facility] ([id number])[address] [place] [address] XR CHEST 1 VWon 06-30-2024 XR CHEST 1 VW Normal [facility] CBC AND AUTO DIFFon 06-30-19 25 ABSOLUTE BASOPHIL 0.1 X10E9/L Normal 0.0-0.2 [facility] Comment on above: Performed By: #### C EWELINA, CMP, , 2776-04 ####[facility] ([id number])[address], [address] [place] [address] ABSOLUTE NEUTROPHIL 4.3 X10E9/L Normal 1.5-6.6 [facility] Comment on above: Performed By: #### C EWELINA, CMP, , 2776-04 ####[facility] ([id number])[address] [place] [address] Basophils/100 WBC (Bld) 0.7 % Normal [facility] Comment on above: Performed By: #### C BCA, CMP, , 2776-04 ####[facility] ([id number])[address], [place] [address] Eosinophils (Bld) [#/Vol] 0.9 10*3/uL High 0.0-0.4 [facility] Comment on above: Performed By: #### C BCA, CMP, , 2776-04 ####[facility] ([id number])[address], [place] [address] Eosinophils/100 WBC (Bld) 12.6 % Normal [facility] Comment on above: Performed By: #### C BCA, CMP, , 2776-04 ####[facility] ([id number])[address] [address], [place] [address] Erythrocyte distribution width (RBC) [Ratio] 17.5 % High 11.5-15.0 [facility] Comment on above: Performed By: #### C BCA, CMP, , 2776-04 ####[facility] ([id number])[address] [address] [place] [address] Hematocrit (Bld) [Volume fraction] 21.9 % Low 35-47 [facility] Comment on above: Performed By: #### C BCA, CMP, , 2776-04 ####[facility] ([id number])[address] [place] [address] Hemoglobin (Bld) [Mass/Vol] 7.4 g/dL Low 11.7-15.5 [facility] Comment on above: Performed By: #### C EWELINA CMP, , 2776-04 ####[facility] ([id number])[address], [place] [address] Lymphocytes (Bld) [#/Vol] 1.4 10*3/uL Normal 1.0-3.5 [facility] Comment on above: Performed By: #### C EWELINA, CMP, , 2776-04 ####[facility] ([id number])[address], [place] [address] Lymphocytes/100 WBC (Bld) 18.9 % Normal [facility] Comment on above: Performed By: #### Bertha BCA, CMP, , 2776-04 ####[facility] ([id number])[address], [place] [address] MCH (RBC) [Entitic mass] 32.0 pg Normal 27-34 [facility] Comment on above: Performed By: #### Bertha BCA, CMP, , 2776-04 ####[facility] ([id number])[address], [place] [address] MCHC (RBC) [Mass/Vol] 33.6 g/dL Normal 32-36 [facility] Comment on above: Performed By: #### C BCA, CMP, , 2776-04 ####[facility] ([id number])[address], [address] [place] [address], [place] [address] MCV (RBC) [Entitic vol] 95 fL Normal 80-100 [facility] Comment on above: Performed By: #### C BCA, CMP, , 2776-04 ####[facility] ([id number])[address], [address], [place] [address] Monocytes (Bld) [#/Vol] 0.7 10*3/uL Normal 0-0.9 [facility] Comment on above: Performed By: #### C BCA, CMP, , 2776-04 ####[facility] ([id number])[address], [address] [place] [address] Monocytes/100 WBC (Bld) 9.5 % Normal [facility] Comment on above: Performed By: #### C BCA, CMP, , 2776-04 ####[facility] ([id number])[address], [address] [place] [address] Neutrophils/100 WBC (Bld) 58.3 % Normal [facility] Comment on above: Performed By: #### C BCA, CMP, , 2776-04 ####[facility] ([id number])[address], [address] [place] [address] Platelet mean volume (Bld) [Entitic vol] 6.8 fL Low 7-12 [facility] Comment on above: Performed By: #### Bertha BCA, CMP, , 2776-04 ####[facility] ([id number])[address], [address] [place] [address] Platelets (Bld) [#/Vol] 458 10*3/uL High 150-450 [facility] Comment on above: Performed By: #### C BCA, CMP, , 2776-04 ####[facility] ([id number])[address], [address], [place] [address] RBC COUNT 2.30 X10E12/L Low 3.80-5.20 [facility] Comment on above: Performed By: #### C BCA, CMP, , 2776-04 ####[facility] ([id number])[address], [address], [place] [address] WBC (Bld) [#/Vol] 7.3 10*3/uL Normal 4.0-11.0 [facility] Comment on above: Performed By: #### C BCA, CMP, , 2776- ####[facility] ([id number])[address], [address], [place] [address] COMPREHENSIVE METABOLIC PANE Kael 06-29-2024 Albumin [Mass/Vol] 3.8 g/dL Normal 3.2-5.3 [facility] Comment on above: Performed By: #### C BCA, CMP, , 2776-04 ####[facility] ([id number])[address] [address], [place] [address] ALP [Catalytic activity/Vol] 66 U/L Normal 39-130 [facility] Comment on above: Performed By: #### C BCA, CMP, , 2776-04 ####[facility] ([id number])[address] [address], [place] [address] ALT [Catalytic activity/Vol] 5 U/L Normal 0-31 [facility] Comment on above: Performed By: #### C BCA, CMP, , 2776- ####[facility] ([id number])[address] [place] [address] Anion gap [Moles/Vol] 15 mmol/L Normal 5-15 [facility] Comment on above: Performed By: #### C BCA, CMP, , 2776- ####[facility] ([id number])[address] [place] [address] AST [Catalytic activity/Vol] 11 U/L Normal 0-41 [facility] Comment on above: Performed By: #### C BCA, CMP, 30676-727[address]-04 ####[facility] ([id number])[address], [address], [place] [address] Bilirubin [Mass/Vol] 0.9 mg/dL Normal 0.3-1.2 [facility] Comment on above: Performed By: #### C BCA, CMP, , 2776-04 ####[facility] ([id number])[address], [address], [place] [address] Calcium [Mass/Vol] 10.2 mg/dL Normal 8.5-10.5 [facility] Comment on above: Performed By: #### C BCA, CMP, , 2776-04 ####[facility] ([id number])[address], [address], [place] [address] Chloride [Moles/Vol] 103 mmol/L Normal 98-109 [facility] Comment on above: Performed By: #### C BCA, CMP, , 2776-04 ####[facility] ([id number])[address], [address] [place] [address] CO2 [Moles/Vol] 23 mmol/L Normal 22-32 [facility] Comment on above: Performed By: #### C BCA, CMP, , 2776-04 ####[facility] ([id number])[address], [address], [place] [address] Creatinine [Mass/Vol] 3.65 mg/dL High 0.40-1.00 [facility] Comment on above: Result Comment: METH OD TRACEABLE TO IDMS STANDARD Performed By: #### C BCA, CMP, , 2776-04 ####[facility] ([id number])[address], [address], [place] [address] GFR/1.73 sq M.predicted among non-blacks MDRD (S/P/Bld) [Vol rate/Area] 14 mL/min/{1.73_m2} Low >59 [facility] Comment on above: Result Comment: Repo rted eGFR is based on theCKD-EPI 2020 equation that doesnot use a race coefficient. Performed By: #### C EWELINA CMP, , 2776-04 ####[facility] ([id number])[address], [address], [place] [address] Glucose [Mass/Vol] 101 mg/dL High 65-99 [facility] Comment on above: Performed By: #### C EWELINA, CMP, , 2776-04 ####[facility] ([id number])[address], [address], [place] [address] Potassium [Moles/Vol] 3.6 mmol/L Normal 3.5-5.0 [facility] Comment on above: Performed By: #### C BCA, CMP, , 2776-04 ####[facility] ([id number])[address], [address], [place] [address] Protein [Mass/Vol] 6.8 g/dL Normal 6.0-8.0 [facility] Comment on above: Performed By: #### C BCA, CMP, , 2776-04 ####[facility] ([id number])[address], [place] [address] Sodium [Moles/Vol] 141 mmol/L Normal 134-146 [facility] Comment on above: Performed By: #### C BCA, CMP, , 2776-04 ####[facility] ([id number])[address], [place] [address] Urea nitrogen [Mass/Vol] 76 mg/dL High 5-27 [facility] Comment on above: Performed By: #### C BCA, CMP, , 2776-04 ####[facility] ([id number])[address], [address], [place] [address] Glucose Glucometer (BldC) [M ass/Vol]on 06-29-2024 Glucose [Mass/Vol] 95 mg/dL Normal 65-99 [facility] MAGNESIUMon 06-29-2024 Magnesium [Mass/Vol] 2.2 mg/dL Normal 1.8-2.6 [facility] Comment on above: Performed By: #### C BCA, [facility], , 2777-1 ####[facility] ([id number])[address], [place] [address] PHOSPHORUSon 06-29-2024 Phosphate [Mass/Vol] 5.2 mg/dL High 2.4-4.9 [facility] Comment on above: Performed By: #### C BCA, [facility], , 2777-1 ####[facility] ([id number])[address], [place] [address] POTASSIUMon 06-29-2024 Potassium [Moles/Vol] 3.9 mmol/L Normal 3.5-5.0 [facility] Comment on above: Performed By: #### 2 823-3 ####[facility] ([id number])[address], [place] [address] VENOUS BLOOD GASon ROBERT'S TEST Normal [facility] Comment on above: Performed By: #### V BG ####[facility] ([id number])[address] [facility] [place] [address] BASE,DEFICIT 3.0 MMOL/L High 0.0-2.0 [facility] Comment on above: Performed By: #### V BG ####[facility] ([id number])[address] [place] [address] Body temperature 98.6 [degF] Normal 37.0 [facility] Comment on above: Performed By: #### V BG ####[facility] ([id number])[address] [place] [address] HCO3 (Bld) [Moles/Vol] 24.5 mmol/L High 20.0-24.0 P [facility] Comment on above: Performed By: #### V BG ####[facility] ([id number])[address] [place] [address] INSP. O2 CONC. 4 % Normal [facility] Comment on above: Performed By: #### V BG ####[facility] ([id number])[address] [place] [address] Oxygen saturation in Blood 54.0 % Low >80.0 [facility] Comment on above: Performed By: #### V BG ####[facility] ([id number])[address] [place] [address] OXYGEN SOURCE NC Normal [facility] Comment on above: Performed By: #### V BG ####[facility] ([id number])[address] [place] [address] PCO2, VENOUS 58.6 MMHG High 35-50 [facility] Comment on above: Performed By: #### V BG ####[facility] ([id number])[address] [place] [address] PH, VENOUS 7.230 Low 7.320-7.42 0 [facility] Comment on above: Performed By: #### V BG ####[facility] ([id number])[address] [place] [address] PO2, VENOUS 35 MMHG Normal 30-50 [facility] Comment on above: Performed By: #### V BG ####[facility] ([id number])[address] [place] [address] SAMPLE SITE N/A Normal [facility] Comment on above: Performed By: #### V BG ####[facility] ([id number])[address] [place] [address] SAMPLE TYPE VENOUS Normal [facility] Comment on above: Performed By: #### V BG ####[facility] ([id number])[address] [facility] [address] XR CHEST 1 VWon 06-29-2024 XR CHEST 1 VW Normal [facility] CBC AND AUTO DIFFon 06-29-19 25 ABSOLUTE BASOPHIL 0.1 X10E9/L Normal 0.0-0.2 [facility] Comment on above: Performed By: #### C BCA, CMP, , 2776-04 ####[facility] ([id number])[address], [address], [place] [address] ABSOLUTE NEUTROPHIL 4.9 X10E9/L Normal 1.5-6.6 [facility] Comment on above: Performed By: #### C BCA, CMP, , 2776-04 ####[facility] ([id number])[address], [address], [place] [address] Basophils/100 WBC (Bld) 1.3 % Normal P [facility] Comment on above: Performed By: #### C BCA, CMP, , 2776-04 ####[facility] ([id number])[address] [place] [address] Eosinophils (Bld) [#/Vol] 0.8 10*3/uL High 0.0-0.4 [facility] Comment on above: Performed By: #### C BCA, CMP, , 2776-04 ####[facility] ([id number])[address] [place] [address] Eosinophils/100 WBC (Bld) 9.6 % Normal [facility] Comment on above: Performed By: #### C BCA, CMP, , 2776-04 ####[facility] ([id number])[address] [place] [address] Erythrocyte distribution width (RBC) [Ratio] 17.6 % High 11.5-15.0 [facility] Comment on above: Performed By: #### C BCA, CMP, , 2776-04 ####[facility] ([id number])[address] [place] [address] Hematocrit (Bld) [Volume fraction] 22.6 % Low 35-47 [facility] Comment on above: Performed By: #### C EWELINA, CMP, , 2776-04 ####[facility] ([id number])[address], [address], [place] [address] Hemoglobin (Bld) [Mass/Vol] 7.4 g/dL Low 11.7-15.5 [facility] Comment on above: Performed By: #### C EWELINA, CMP, , 2776-04 ####[facility] ([id number])[address], [place] [address] Lymphocytes (Bld) [#/Vol] 1.3 10*3/uL Normal 1.0-3.5 [facility] Comment on above: Performed By: #### C EWELINA, CMP, , 2776-04 ####[facility] ([id number])[address], [place] [address] Lymphocytes/100 WBC (Bld) 15.7 % Normal [facility] Comment on above: Performed By: #### C EWELINA, CMP, , 2776-04 ####[facility] ([id number])[address] [place] [address] MCH (RBC) [Entitic mass] 31.4 pg Normal 27-34 [facility] Comment on above: Performed By: #### C EWELINA, CMP, , 2776-04 ####[facility] ([id number])[address], [address], [place] [address] MCHC (RBC) [Mass/Vol] 32.8 g/dL Normal 32-36 [facility] Comment on above: Performed By: #### C BCA, CMP, , 2776-04 ####[facility] ([id number])[address] [place] [address] MCV (RBC) [Entitic vol] 96 fL Normal 80-100 [facility] Comment on above: Performed By: #### C EWELINA, CMP, , 2776-04 ####[facility] ([id number])[address], [address] [place] [address] Monocytes (Bld) [#/Vol] 0.9 10*3/uL Normal 0-0.9 [facility] Comment on above: Performed By: #### C EWELINA, CMP, , 2776-04 ####[facility] ([id number])[address], [address], [place] [address] Monocytes/100 WBC (Bld) 11.8 % Normal [facility] Comment on above: Performed By: #### C BCA, CMP, , 2776-04 ####[facility] ([id number])[address] [place] [address] Neutrophils/100 WBC (Bld) 61.6 % Normal [facility] Comment on above: Performed By: #### C BCA, CMP, , 2776-04 ####[facility] ([id number])[address], [address], [place] [address] Platelet mean volume (Bld) [Entitic vol] 6.7 fL Low 7-12 [facility] Comment on above: Performed By: #### C BCA, CMP, , 2776-04 ####[facility] ([id number])[address], [address], [place] [address] Platelets (Bld) [#/Vol] 430 10*3/uL Normal 150-450 [facility] Comment on above: Performed By: #### C BCA, CMP, , 2776-04 ####[facility] ([id number])[address], [place] [address] RBC COUNT 2.36 X10E12/L Low 3.80-5.20 [facility] Comment on above: Performed By: #### C BCA, CMP, , 2776-04 ####[facility] ([id number])[address] [place] [address] WBC (Bld) [#/Vol] 8.0 10*3/uL Normal 4.0-11.0 [facility] Comment on above: Performed By: #### C BCA, CMP, , 2776-04 ####[facility] ([id number])[address], [place] [address] COMPREHENSIVE METABOLIC PANE Kael 06-28-2024 Albumin [Mass/Vol] 3.9 g/dL Normal 3.2-5.3 [facility] Comment on above: Performed By: #### C BCA, CMP, , 2776-04 ####[facility] ([id number])[address], [place] [address] ALP [Catalytic activity/Vol] 64 U/L Normal 39-130 [facility] Comment on above: Performed By: #### C BCA, CMP, , 2776-04 ####[facility] ([id number])[address], [place] [address] ALT [Catalytic activity/Vol] 5 U/L Normal 0-31 [facility] Comment on above: Performed By: #### C BCA, CMP, , 2776-04 ####[facility] ([id number])[address], [place] [address] Anion gap [Moles/Vol] 16 mmol/L High 5-15 [facility] Comment on above: Performed By: #### C BCA, CMP, , 2776-04 ####[facility] ([id number])[address], [place] [address] AST [Catalytic activity/Vol] 11 U/L Normal 0-41 [facility] Comment on above: Performed By: #### C BCA, CMP, , 2776-04 ####[facility] ([id number])[address], [place] [address] Bilirubin [Mass/Vol] 1.0 mg/dL Normal 0.3-1.2 [facility] Comment on above: Performed By: #### C BCA, CMP, , 2776-04 ####[facility] ([id number])[address], [place] [address] Calcium [Mass/Vol] 10.4 mg/dL Normal 8.5-10.5 [facility] Comment on above: Performed By: #### C BCA, CMP, , 2776-04 ####[facility] ([id number])[address], [place] [address] Chloride [Moles/Vol] 101 mmol/L Normal 98-109 [facility] Comment on above: Performed By: #### C BCA, CMP, , 2776-04 ####[facility] ([id number])[address], [place] [address] CO2 [Moles/Vol] 21 mmol/L Low 22-32 [facility] Comment on above: Performed By: #### C RENA THEODORE, , 2776-04 ####[facility] ([id number])[address], [place] [address] Creatinine [Mass/Vol] 3.26 mg/dL High 0.40-1.00 [facility] Comment on above: Result Comment: METH OD TRACEABLE TO IDMS STANDARD Performed By: #### C RENA THEODORE, , 2776-04 ####[facility] ([id number])[address] [address] GFR/1.73 sq M.predicted among non-blacks MDRD (S/P/Bld) [Vol rate/Area] 16 mL/min/{1.73_m2} Low >59 [facility] Comment on above: Result Comment: Repo rted eGFR is based on theCKD-EPI 2020 equation that doesnot use a race coefficient. Performed By: #### C RENA THEODORE, , 2776-04 ####[facility] ([id number])[address], [place] [address] Glucose [Mass/Vol] 83 mg/dL Normal 65-99 [facility] Comment on above: Performed By: #### C RENA THEODORE, , 2776-04 ####[facility] ([id number])[address] [address], [place] [address] Potassium [Moles/Vol] 3.9 mmol/L Normal 3.5-5.0 [facility] Comment on above: Performed By: #### C EWELINA CMP, , 2776-04 ####[facility] ([id number])[address] [place] [address] Protein [Mass/Vol] 7.0 g/dL Normal 6.0-8.0 [facility] Comment on above: Performed By: #### C BCA, CMP, , 2776-04 ####[facility] ([id number])[address], [place] [address] Sodium [Moles/Vol] 138 mmol/L Normal 134-146 [facility] Comment on above: Performed By: #### C BCA, CMP, , 2776-04 ####[facility] ([id number])[address] [place] [address] Urea nitrogen [Mass/Vol] 76 mg/dL High 5-27 [facility] Comment on above: Performed By: #### C BCA, CMP, , 2776-04 ####[facility] ([id number])[address], [place] [address] MAGNESIUMon 06-28-2024 Magnesium [Mass/Vol] 2.4 mg/dL Normal 1.8-2.6 [facility] Comment on above: Performed By: #### C EWELINA, CMP, , 2776-04 ####[facility] ([id number])[address] [place] [address] PHOSPHORUSon 06-28-2024 Phosphate [Mass/Vol] 5.5 mg/dL High 2.4-4.9 [facility] Comment on above: Performed By: #### C BCA, CMP, , 2776-04 ####[facility] ([id number])[address] [place] [address] CBC AND AUTO DIFFon 06-28-19 25 ABSOLUTE BASOPHIL 0.1 X10E9/L Normal 0.0-0.2 [facility] Comment on above: Performed By: #### C BCA, CMP, , 2776-04 ####[facility] ([id number])[address] [place] [address] ABSOLUTE NEUTROPHIL 4.1 X10E9/L Normal 1.5-6.6 [facility] Comment on above: Performed By: #### C EWELINA CMP, , 2776-04 ####[facility] ([id number])[address], [place] [address] Basophils/100 WBC (Bld) 0.8 % Normal P [facility] Comment on above: Performed By: #### C EWELINA, CMP, , 2776-04 ####[facility] ([id number])[address], [place] [address] Eosinophils (Bld) [#/Vol] 0.4 10*3/uL Normal 0.0-0.4 [facility] Comment on above: Performed By: #### Bertha THEODORE, CMP, , 2776-04 ####[facility] ([id number])[address], [place] [address] Eosinophils/100 WBC (Bld) 6.0 % Normal [facility] Comment on above: Performed By: #### Bertha BCA, CMP, , 2776-04 ####[facility] ([id number])[address], [place] [address] Erythrocyte distribution width (RBC) [Ratio] 17.5 % High 11.5-15.0 [facility] Comment on above: Performed By: #### C BCA, CMP, , 2776-04 ####[facility] ([id number])[address] [place] [address] Hematocrit (Bld) [Volume fraction] 22.2 % Low 35-47 [facility] Comment on above: Performed By: #### Bertha BCA, CMP, , 2776-04 ####[facility] ([id number])[address], [place] [address] Hemoglobin (Bld) [Mass/Vol] 7.4 g/dL Low 11.7-15.5 [facility] Comment on above: Performed By: #### C BCA, CMP, , 2776-04 ####[facility] ([id number])[address] [place] [address] Lymphocytes (Bld) [#/Vol] 1.3 10*3/uL Normal 1.0-3.5 [facility] Comment on above: Performed By: #### C EWELINA, CMP, , 2776-04 ####[facility] ([id number])[address] [place] [address] Lymphocytes/100 WBC (Bld) 19.0 % Normal [facility] Comment on above: Performed By: #### Bertha BCA, CMP, , 2776-04 ####[facility] ([id number])[address] [place] [address] MCH (RBC) [Entitic mass] 31.8 pg Normal 27-34 [facility] Comment on above: Performed By: #### C BCA, CMP, , 2776-04 ####[facility] ([id number])[address] [place] [address] MCHC (RBC) [Mass/Vol] 33.4 g/dL Normal 32-36 [facility] Comment on above: Performed By: #### C BCA, CMP, , 2776-04 ####[facility] ([id number])[address] [place] [address] MCV (RBC) [Entitic vol] 95 fL Normal 80-100 [facility] Comment on above: Performed By: #### C BCA, CMP, , 2776-04 ####[facility] ([id number])[address], [place] [address] Monocytes (Bld) [#/Vol] 0.9 10*3/uL Normal 0-0.9 [facility] Comment on above: Performed By: #### C BCA, CMP, , 2776-04 ####[facility] ([id number])[address], [place] [address] Monocytes/100 WBC (Bld) 13.7 % Normal [facility] Comment on above: Performed By: #### C BCA, CMP, , 2776-04 ####[facility] ([id number])[address] [place] [address] Neutrophils/100 WBC (Bld) 60.5 % Normal [facility] Comment on above: Performed By: #### Bertha BCA, CMP, , 2776-04 ####[facility] ([id number])[address] [place] [address] Platelet mean volume (Bld) [Entitic vol] 6.8 fL Low 7-12 [facility] Comment on above: Performed By: #### Bertha BCA, CMP, , 2776-04 ####[facility] ([id number])[address], [place] [address] Platelets (Bld) [#/Vol] 405 10*3/uL Normal 150-450 [facility] Comment on above: Performed By: #### C BCA, CMP, , 2776-04 ####[facility] ([id number])[address], [place] [address] RBC COUNT 2.33 X10E12/L Low 3.80-5.20 [facility] Comment on above: Performed By: #### Bertha BCA, CMP, , 2776-04 ####[facility] ([id number])[address], [place] [address] WBC (Bld) [#/Vol] 6.8 10*3/uL Normal 4.0-11.0 [facility] Comment on above: Performed By: #### C BCA, CMP, , 2776-04 ####[facility] ([id number])[address], [place] [address] COMPREHENSIVE METABOLIC PANE Kael 06-27-2024 Albumin [Mass/Vol] 4.0 g/dL Normal 3.2-5.3 [facility] Comment on above: Performed By: #### C BCA, CMP, , 2776-04 ####[facility] ([id number])[address], [place] [address] ALP [Catalytic activity/Vol] 60 U/L Normal 39-130 [facility] Comment on above: Performed By: #### C BCA, CMP, , 2776-04 ####[facility] ([id number])[address], [place] [address] ALT [Catalytic activity/Vol] 6 U/L Normal 0-31 [facility] Comment on above: Performed By: #### C BCA, CMP, , 2776-04 ####[facility] ([id number])[address] [place] [address] Anion gap [Moles/Vol] 15 mmol/L Normal 5-15 [facility] Comment on above: Performed By: #### C BCA, CMP, , 2776-04 ####[facility] ([id number])[address] [place] [address] AST [Catalytic activity/Vol] 13 U/L Normal 0-41 [facility] Comment on above: Performed By: #### C BCA, CMP, , 2776-04 ####[facility] ([id number])[address] [place] [address] Bilirubin [Mass/Vol] 0.9 mg/dL Normal 0.3-1.2 [facility] Comment on above: Performed By: #### C BCA, CMP, , 2776-04 ####[facility] ([id number])[address], [place] [address] Calcium [Mass/Vol] 10.1 mg/dL Normal 8.5-10.5 [facility] Comment on above: Performed By: #### C BCA, CMP, , 2776-04 ####[facility] ([id number])[address], [place] [address] Chloride [Moles/Vol] 102 mmol/L Normal 98-109 [facility] Comment on above: Performed By: #### C BCA, CMP, , 2776-04 ####[facility] ([id number])[address], [place] [address] CO2 [Moles/Vol] 22 mmol/L Normal 22-32 [facility] Comment on above: Performed By: #### C BCA, CMP, , 2776-04 ####[facility] ([id number])[address] [place] [address] Creatinine [Mass/Vol] 2.91 mg/dL High 0.40-1.00 [facility] Comment on above: Result Comment: METH OD TRACEABLE TO IDMS STANDARD Performed By: #### C BCA, CMP, , 2776-04 ####[facility] ([id number])[address], [place] [address] GFR/1.73 sq M.predicted among non-blacks MDRD (S/P/Bld) [Vol rate/Area] 18 mL/min/{1.73_m2} Low >59 [facility] Comment on above: Result Comment: Repo rted eGFR is based on theD-EPI 2020 equation that doesnot use a race coefficient. Performed By: #### C EWELINA CMP, , 2776-04 ####[facility] ([id number])[address], [place] [address] Glucose [Mass/Vol] 80 mg/dL Normal 65-99 [place] [facility] Comment on above: Performed By: #### C EWELINA, CMP, , 2776-04 ####[facility] ([id number])[address], [address], [place] [address] Potassium [Moles/Vol] 4.2 mmol/L Normal 3.5-5.0 [facility] Comment on above: Performed By: #### C BCA, CMP, , 2776-04 ####[facility] ([id number])[address], [place] [address] Protein [Mass/Vol] 7.0 g/dL Normal 6.0-8.0 [facility] Comment on above: Performed By: #### C BCA, CMP, , 2776-04 ####[facility] ([id number])[address], [place] [address] Sodium [Moles/Vol] 139 mmol/L Normal 134-146 [facility] Comment on above: Performed By: #### C BCA, CMP, , 2776-04 ####[facility] ([id number])[address], [place] [address] Urea nitrogen [Mass/Vol] 71 mg/dL High 5-27 [facility] Comment on above: Performed By: #### C BCA, CMP, , 2776-04 ####[facility] ([id number])[address], [address], [place] [address] HBV core IgM IA Qlon 025 HEPATITIS B CORE IGM Non-Reactive Normal NRCT Pr [facility] Comment on above: Result Comment: NEW TEST METHOD Performed By: #### 2 4113-3 ####[facility] ([id number])[address], [address], [place] [address] MAGNESIUMon 06-27-2024 Magnesium [Mass/Vol] 2.5 mg/dL Normal 1.8-2.6 [facility] Comment on above: Performed By: #### C EWELINA, CMP, , 2776-04 ####[facility] ([id number])[address], [address] [place] [address] PHOSPHORUSon 06-27-2024 Phosphate [Mass/Vol] 5.3 mg/dL High 2.4-4.9 [facility] Comment on above: Performed By: #### C BCA, CMP, , 2776-04 ####[facility] ([id number])[address], [place] [address] CBC AND AUTO DIFFon 06-27-19 25 ABSOLUTE BASOPHIL 0.2 X10E9/L Normal 0.0-0.2 [facility] Comment on above: Performed By: #### C BCA, CMP, , 2776-04 ####[facility] ([id number])[address], [address], [place] [address] ABSOLUTE NEUTROPHIL 3.7 X10E9/L Normal 1.5-6.6 [facility] Comment on above: Performed By: #### C BCA, CMP, , 2776-04 ####[facility] ([id number])[address], [address], [place] [address] Basophils/100 WBC (Bld) 2.7 % Normal P [facility] Comment on above: Performed By: #### C BCA, CMP, , 2776-04 ####[facility] ([id number])[address] [place] [address] Eosinophils (Bld) [#/Vol] 0.1 10*3/uL Normal 0.0-0.4 [facility] Comment on above: Performed By: #### C BCA, CMP, , 2776-04 ####[facility] ([id number])[address] [place] [address] Eosinophils/100 WBC (Bld) 2.3 % Normal [facility] Comment on above: Performed By: #### C EWELINA, CMP, , 2776-04 ####[facility] ([id number])[address] [place] [address] Erythrocyte distribution width (RBC) [Ratio] 17.4 % High 11.5-15.0 [facility] Comment on above: Performed By: #### C EWELINA, CMP, , 2776-04 ####[facility] ([id number])[address], [place] [address] Hematocrit (Bld) [Volume fraction] 22.2 % Low 35-47 [facility] Comment on above: Performed By: #### C BCA, CMP, , 2776-04 ####[facility] ([id number])[address] [place] [address] Hemoglobin (Bld) [Mass/Vol] 7.4 g/dL Low 11.7-15.5 [facility] Comment on above: Performed By: #### C BCA, CMP, , 2776-04 ####[facility] ([id number])[address] [place] [address] Lymphocytes (Bld) [#/Vol] 1.2 10*3/uL Normal 1.0-3.5 [facility] Comment on above: Performed By: #### C EWELINA, CMP, , 2776-04 ####[facility] ([id number])[address] [address] Lymphocytes/100 WBC (Bld) 19.4 % Normal [facility] Comment on above: Performed By: #### C EWELINA, CMP, , 2776-04 ####[facility] ([id number])[address] [address] MCH (RBC) [Entitic mass] 31.8 pg Normal 27-34 [facility] Comment on above: Performed By: #### C EWELINA, CMP, , 2776-04 ####[facility] ([id number])[address] [address] MCHC (RBC) [Mass/Vol] 33.6 g/dL Normal 32-36 [facility] Comment on above: Performed By: #### C BCA, CMP, , 2776-04 ####[facility] ([id number])[address] [address] MCV (RBC) [Entitic vol] 95 fL Normal 80-100 P [facility] Comment on above: Performed By: #### C BCA, CMP, , 2776-04 ####[facility] ([id number])[address] [address] Monocytes (Bld) [#/Vol] 1.0 10*3/uL High 0-0.9 [facility] Comment on above: Performed By: #### C BCA, CMP, , 2776-04 ####[facility] ([id number])[address] [place] [address] Monocytes/100 WBC (Bld) 15.5 % Normal [facility] Comment on above: Performed By: #### C BCA, CMP, , 2776-04 ####[facility] ([id number])[address], [address], [place] [address] Neutrophils/100 WBC (Bld) 60.1 % Normal [facility] Comment on above: Performed By: #### C BCA, CMP, , 2776-04 ####[facility] ([id number])[address], [address], [place] [address] Platelet mean volume (Bld) [Entitic vol] 6.7 fL Low 7-12 [facility] Comment on above: Performed By: #### C BCA, CMP, , 2776-04 ####[facility] ([id number])[address], [place] [address] Platelets (Bld) [#/Vol] 394 10*3/uL Normal 150-450 [facility] Comment on above: Performed By: #### Bertha BCA, CMP, , 2776-04 ####[facility] ([id number])[address], [place] [address] RBC COUNT 2.34 X10E12/L Low 3.80-5.20 [facility] Comment on above: Performed By: #### C BCA, CMP, , 2776-04 ####[facility] ([id number])[address] [place] [address] WBC (Bld) [#/Vol] 6.2 10*3/uL Normal 4.0-11.0 [facility] Comment on above: Performed By: #### C BCA, CMP, , 2776-04 ####[facility] ([id number])[address], [address], [place] [address] COMPREHENSIVE METABOLIC PANE Kael 06-26-2024 Albumin [Mass/Vol] 4.4 g/dL Normal 3.2-5.3 [facility] Comment on above: Performed By: #### C BCA, CMP, 12237-5, 2776-1 ####[facility] ([id number])[address], [address], [place] [address] ALP [Catalytic activity/Vol] 63 U/L Normal 39-130 [facility] Comment on above: Performed By: #### C BCA, CMP, 93347-8, 2776- ####[facility] ([id number])[address], [address], [place] [address] ALT [Catalytic activity/Vol] 5 U/L Normal 0-31 [facility] Comment on above: Performed By: #### C BCA, CMP, , 2776- ####[facility] ([id number])[address] [place] [address] Anion gap [Moles/Vol] 17 mmol/L High 5-15 [facility] Comment on above: Performed By: #### C BCA, CMP, , 2776- ####[facility] ([id number])[address] [place] [address] AST [Catalytic activity/Vol] 12 U/L Normal 0-41 [facility] Comment on above: Performed By: #### C BCA, CMP, , 2776- ####[facility] ([id number])[address], [address], [place] [address] Bilirubin [Mass/Vol] 1.0 mg/dL Normal 0.3-1.2 [facility] Comment on above: Performed By: #### C BCA, CMP, , 2776- ####[facility] ([id number])[address], [place] [address] Calcium [Mass/Vol] 10.2 mg/dL Normal 8.5-10.5 [facility] Comment on above: Performed By: #### C BCA, CMP, , 1 ####[facility] ([id number])[address], [place] [address] Chloride [Moles/Vol] 98 mmol/L Normal 98-109 [facility] Comment on above: Performed By: #### C BCA, CMP, , 2776-04 ####[facility] ([id number])[address] [place] [address] CO2 [Moles/Vol] 22 mmol/L Normal 22-32 [facility] Comment on above: Performed By: #### C BCA, CMP, , 2776-04 ####[facility] ([id number])[address] [place] [address] Creatinine [Mass/Vol] 2.31 mg/dL High 0.40-1.00 [facility] Comment on above: Result Comment: METH OD TRACEABLE TO IDMS STANDARD Performed By: #### C BCA, CMP, , 2776-04 ####[facility] ([id number])[address] [address] GFR/1.73 sq M.predicted among non-blacks MDRD (S/P/Bld) [Vol rate/Area] 23 mL/min/{1.73_m2} Low >59 [facility] Comment on above: Result Comment: Repo rted eGFR is based on theCKD-EPI 2020 equation that doesnot use a race coefficient. Performed By: #### C BCA, CMP, , 2776-04 ####[facility] ([id number])[address], [place] [address] Glucose [Mass/Vol] 94 mg/dL Normal 65-99 [facility] Comment on above: Performed By: #### C BCA, CMP, , 2776-04 ####[facility] ([id number])[address], [place] [address] Potassium [Moles/Vol] 3.2 mmol/L Low 3.5-5.0 [facility] Comment on above: Performed By: #### C BCA, CMP, , 2776-04 ####[facility] ([id number])[address], [address], [place] [address] Protein [Mass/Vol] 7.5 g/dL Normal 6.0-8.0 [facility] Comment on above: Performed By: #### C EWELINA, CMP, , 2776-04 ####[facility] ([id number])[address], [place] [address] Sodium [Moles/Vol] 137 mmol/L Normal 134-146 [facility] Comment on above: Performed By: #### C BCA, CMP, , 2776-04 ####[facility] ([id number])[address], [place] [address] Urea nitrogen [Mass/Vol] 63 mg/dL High 5-27 [facility] Comment on above: Performed By: #### C BCA, CMP, , 2776-04 ####[facility] ([id number])[address], [address], [place] [address] FL SWALLOW MOTILITY FUNCTION on 06-26-2024 FL SWALLOW MOTILITY FUNCTION Normal [facility] MAGNESIUMon 06-26-2024 Magnesium [Mass/Vol] 1.9 mg/dL Normal 1.8-2.6 [facility] Comment on above: Performed By: #### C BCA, CMP, , 1 ####[facility] ([id number])[address], [place] [address] Magnesium Ionized ISE (Bld) [Moles/Vol]on 06-26-2024 Magnesium [Moles/Vol] 0.73 mmol/L Normal 0.45-0.74 [facility] Comment on above: Result Comment: NEW REFERENCE RANGE Performed By: #### 7 3572-0 ####[facility] ([id number])[address] [place] [address] PHOSPHORUSon 06-26-2024 Phosphate [Mass/Vol] 4.5 mg/dL Normal 2.4-4.9 [facility] Comment on above: Performed By: #### C BCA, [facility], , 2777 ####[facility] ([id number])[address] [place] [address] POTASSIUMon 06-26-2024 Potassium [Moles/Vol] 4.3 mmol/L Normal 3.5-5.0 [facility] Comment on above: Performed By: #### 2 823-3 ####[facility] ([id number])[address], [address], [place] [address] Potassium [Moles/Vol] 3.5 mmol/L Normal 3.5-5.0 [facility] Comment on above: Performed By: #### 2 823-3 ####[facility] ([id number])[address], [place] [address] XR CHEST 1 VWon 06-26-2024 XR CHEST 1 VW Normal [facility] ARTERIAL BLOOD GASon 025 ROBERT'S TEST Normal [facility] Comment on above: Performed By: #### A BG ####[facility] ([id number])[address] [place] [address] BASE,DEFICIT 5.0 MMOL/L High 0.0-2.0 [facility] Comment on above: Performed By: #### A BG ####[facility] ([id number])[address] [place] [place] [address] Body temperature 98.6 [degF] Normal 37.0 [facility] Comment on above: Performed By: #### A BG ####[facility] ([id number])[address] [facility] [place] [address] HCO3 (Bld) [Moles/Vol] 19.6 mmol/L Low 22-26 P [facility] Comment on above: Performed By: #### A BG ####[facility] ([id number])[address] [facility] [place] [address] INSP. O2 CONC. 40 % Normal [facility] Comment on above: Performed By: #### A BG ####[facility] ([id number])[address] [facility] [place] [address] Oxygen (Bld) [Partial pressure] 173 mm[Hg] High 80-100 [facility] Comment on above: Performed By: #### A BG ####[facility] ([id number])[address] [facility] [place] [address] Oxygen saturation in Blood 100.0 % Normal >90 [facility] Comment on above: Performed By: #### A BG ####[facility] ([id number])[address] [facility] [place] [address] OXYGEN SOURCE Vent Normal [facility] Comment on above: Performed By: #### A BG ####[facility] ([id number])[address] [facility] [place] [address] PCO2 33.3 MMHG Low 35-45 [facility] Comment on above: Performed By: #### A BG ####[facility] ([id number])[address] [place] [address] pH (Bld) 7.378 [pH] Normal 7.350-7.45 0 [facility] Comment on above: Performed By: #### A BG ####[facility] ([id number])[address] [place] [address] SAMPLE SITE Breanne Normal [facility] Comment on above: Performed By: #### A BG ####[facility] ([id number])[address] [place] [address] SAMPLE TYPE ARTERIAL Normal [facility] Comment on above: Performed By: #### A BG ####[facility] ([id number])[address] [place] [address] CBC AND AUTO DIFFon 06-26-19 25 ABSOLUTE BASOPHIL 0.0 X10E9/L Normal 0.0-0.2 [facility] Comment on above: Performed By: #### C EWELINA CMP, , 2776-04 ####[facility] ([id number])[address] [place] [address] ABSOLUTE NEUTROPHIL 5.7 X10E9/L Normal 1.5-6.6 [facility] Comment on above: Performed By: #### C EWELINA, CMP, , 2776-04 ####[facility] ([id number])[address] [address] Basophils/100 WBC (Bld) 0.7 % Normal P [facility] Comment on above: Performed By: #### C BCA, CMP, , 2776-04 ####[facility] ([id number])[address], [address] [address] Eosinophils (Bld) [#/Vol] 0.0 10*3/uL Normal 0.0-0.4 [facility] Comment on above: Performed By: #### C BCA, CMP, , 2776-04 ####[facility] ([id number])[address], [place] [address] Eosinophils/100 WBC (Bld) 0.0 % Normal [facility] Comment on above: Performed By: #### C EWELINA [facility], , 2776-04 ####[facility] ([id number])[address], [place] [address] Erythrocyte distribution width (RBC) [Ratio] 17.3 % High 11.5-15.0 [facility] Comment on above: Performed By: #### C EWELINA [facility], , 2776-04 ####[facility] ([id number])[address] [place] [address] Hematocrit (Bld) [Volume fraction] 25.2 % Low 35-47 [facility] Comment on above: Performed By: #### C EWELINA [facility], , 2776-04 ####[facility] ([id number])[address] [place] [address] Hemoglobin (Bld) [Mass/Vol] 8.5 g/dL Low 11.7-15.5 [facility] Comment on above: Performed By: #### C RENA THEODORE, 2776-04 ####[facility] ([id number])[address] [address] Lymphocytes (Bld) [#/Vol] 0.8 10*3/uL Low 1.0-3.5 [facility] Comment on above: Performed By: #### C EWELINA CMP, , 2776-04 ####[facility] ([id number])[address] [place] [address] Lymphocytes/100 WBC (Bld) 11.1 % Normal [facility] Comment on above: Performed By: #### C EWELINA CMP, , 2776-04 ####[facility] ([id number])[address], [place] [address] MCH (RBC) [Entitic mass] 32.0 pg Normal 27-34 [facility] Comment on above: Performed By: #### C BCA, CMP, , 2776-04 ####[facility] ([id number])[address] [place] [address] MCHC (RBC) [Mass/Vol] 33.7 g/dL Normal 32-36 [facility] Comment on above: Performed By: #### C BCA, CMP, , 2776-04 ####[facility] ([id number])[address] [place] [address] MCV (RBC) [Entitic vol] 95 fL Normal 80-100 P [facility] Comment on above: Performed By: #### C BCA, CMP, , 2776-04 ####[facility] ([id number])[address] [place] [address] Monocytes (Bld) [#/Vol] 0.3 10*3/uL Normal 0-0.9 [facility] Comment on above: Performed By: #### C BCA, CMP, , 2776-04 ####[facility] ([id number])[address] [place] [address] Monocytes/100 WBC (Bld) 4.8 % Normal P [facility] Comment on above: Performed By: #### C BCA, CMP, , 2776-04 ####[facility] ([id number])[address] [place] [address] Neutrophils/100 WBC (Bld) 83.4 % Normal [facility] Comment on above: Performed By: #### C BCA, CMP, , 2776-04 ####[facility] ([id number])[address], [place] [address] Platelet mean volume (Bld) [Entitic vol] 7.2 fL Normal 7-12 [facility] Comment on above: Performed By: #### C BCA, CMP, , 2776- ####[facility] ([id number])[address], [place] [address] Platelets (Bld) [#/Vol] 419 10*3/uL Normal 150-450 [facility] Comment on above: Performed By: #### C BCA, CMP, , 2776-04 ####[facility] ([id number])[address] [address], [place] [address] RBC COUNT 2.66 X10E12/L Low 3.80-5.20 [facility] Comment on above: Performed By: #### C BCA, CMP, , 2776-04 ####[facility] ([id number])[address] [address] WBC (Bld) [#/Vol] 6.8 10*3/uL Normal 4.0-11.0 [facility] Comment on above: Performed By: #### C BCA, CMP, , 2776-04 ####[facility] ([id number])[address], [place] [address] COMPREHENSIVE METABOLIC PANE Kael 06-25-2024 Albumin [Mass/Vol] 3.6 g/dL Normal 3.2-5.3 [facility] Comment on above: Performed By: #### C BCA, CMP, , 2776- ####[facility] ([id number])[address] [place] [address] ALP [Catalytic activity/Vol] 66 U/L Normal 39-130 [facility] Comment on above: Performed By: #### C BCA, CMP, , 2776-04 ####[facility] ([id number])[address], [place] [address] ALT [Catalytic activity/Vol] 4 U/L Normal 0-31 [facility] Comment on above: Performed By: #### C BCA, CMP, , 2776-04 ####[facility] ([id number])[address], [place] [address] Anion gap [Moles/Vol] 18 mmol/L High 5-15 [facility] Comment on above: Performed By: #### C BCA, CMP, , 2776-04 ####[facility] ([id number])[address], [place] [address] AST [Catalytic activity/Vol] 9 U/L Normal 0-41 [facility] Comment on above: Performed By: #### C BCA, CMP, , 2776-04 ####[facility] ([id number])[address], [place] [address] Bilirubin [Mass/Vol] 0.8 mg/dL Normal 0.3-1.2 [facility] Comment on above: Performed By: #### C BCA, CMP, , 2776-04 ####[facility] ([id number])[address], [place] [address] Calcium [Mass/Vol] 10.4 mg/dL Normal 8.5-10.5 [facility] Comment on above: Performed By: #### C BCA, CMP, , 2776-04 ####[facility] ([id number])[address], [place] [address] Chloride [Moles/Vol] 96 mmol/L Low 98-109 [facility] Comment on above: Performed By: #### C RENA THEODORE, , 2776-04 ####[facility] ([id number])[address], [place] [address] CO2 [Moles/Vol] 22 mmol/L Normal 22-32 [facility] Comment on above: Performed By: #### C RENA THEODORE, , 2776-04 ####[facility] ([id number])[address] [place] [address] Creatinine [Mass/Vol] 2.94 mg/dL High 0.40-1.00 [facility] Comment on above: Result Comment: METH OD TRACEABLE TO IDMS STANDARD Performed By: #### C RENA THEODORE, , 2776-04 ####[facility] ([id number])[address] [place] [address] GFR/1.73 sq M.predicted among non-blacks MDRD (S/P/Bld) [Vol rate/Area] 18 mL/min/{1.73_m2} Low >59 [facility] Comment on above: Result Comment: Repo rted eGFR is based on theCKD-EPI 2020 equation that doesnot use a race coefficient. Performed By: #### C RENA THEODORE, , 2776-04 ####[facility] ([id number])[address] [place] [address] Glucose [Mass/Vol] 125 mg/dL High 65-99 [facility] Comment on above: Performed By: #### C RENA THEODORE, , 2776-04 ####[facility] ([id number])[address], [place] [address] Potassium [Moles/Vol] 3.9 mmol/L Normal 3.5-5.0 [facility] Comment on above: Performed By: #### C BCA, CMP, , 2776-04 ####[facility] ([id number])[address], [address] [place] [address] Protein [Mass/Vol] 7.0 g/dL Normal 6.0-8.0 [facility] Comment on above: Performed By: #### C BCA, CMP, , 2776-04 ####[facility] ([id number])[address], [address] [place] [address] Sodium [Moles/Vol] 136 mmol/L Normal 134-146 [facility] Comment on above: Performed By: #### C BCA, CMP, , 2776-04 ####[facility] ([id number])[address], [address] [place] [address] Urea nitrogen [Mass/Vol] 105 mg/dL High 5-27 [facility] Comment on above: Performed By: #### C EWELINA, CMP, , 2776-04 ####[facility] ([id number])[address] [place] [address] MAGNESIUMon 06-25-2024 Magnesium [Mass/Vol] 2.3 mg/dL Normal 1.8-2.6 [facility] Comment on above: Performed By: #### C BCA, CMP, , 2776-04 ####[facility] ([id number])[address], [address] [place] [address] PHOSPHORUSon 06-25-2024 Phosphate [Mass/Vol] 7.0 mg/dL High 2.4-4.9 [facility] Comment on above: Performed By: #### C BCA, CMP, , 2776-04 ####[facility] ([id number])[address], [place] [address] XR CHEST 1 VWon 06-25-2024 XR CHEST 1 VW Normal [facility] ARTERIAL BLOOD GASon 025 ROBERT'S TEST Normal [facility] Comment on above: Performed By: #### A BG ####[facility] ([id number])[address] [facility] [place] [address] BASE,DEFICIT 7.0 MMOL/L High 0.0-2.0 [facility] Comment on above: Performed By: #### A BG ####[facility] ([id number])[address] [facility] [place] [address] Body temperature 98.6 [degF] Normal 37.0 [facility] Comment on above: Performed By: #### A BG ####[facility] ([id number])[address] [place] [address] HCO3 (Bld) [Moles/Vol] 18.8 mmol/L Low 22-26 P [facility] Comment on above: Performed By: #### A BG ####[facility] ([id number])[address] [facility] [place] [address] INSP. O2 CONC. 40 % [facility] Comment on above: Performed By: #### A BG ####[facility] ([id number])[address] [facility] [place] [address] Oxygen (Bld) [Partial pressure] 115 mm[Hg] High 80-100 [facility] Comment on above: Performed By: #### A BG ####[facility] ([id number])[address] [facility] [place] [address] Oxygen saturation in Blood 98.0 % Normal >90 [facility] Comment on above: Performed By: #### A BG ####[facility] ([id number])[address] [facility] [place] [address] OXYGEN SOURCE Vent Normal [facility] Comment on above: Performed By: #### A BG ####[facility] ([id number])[address] [place] [address] PCO2 39.3 MMHG Normal 35-45 [facility] Comment on above: Performed By: #### A BG ####[facility] ([id number])[address] [place] [address] pH (Bld) 7.288 [pH] Low 7.350-7.45 0 [facility] Comment on above: Performed By: #### A BG ####[facility] ([id number])[address] [place] [address] SAMPLE SITE Breanne Normal [facility] Comment on above: Performed By: #### A BG ####[facility] ([id number])[address] [place] [place] [address] SAMPLE TYPE ARTERIAL Normal [facility] Comment on above: Performed By: #### A BG ####[facility] ([id number])[address] [place] [place] [address] ROBERT'S TEST Normal [facility] Comment on above: Performed By: #### A BG ####[facility] ([id number])[address] [facility] [place] [address] BASE,DEFICIT 6.0 MMOL/L High 0.0-2.0 [facility] Comment on above: Performed By: #### A BG ####[facility] ([id number])[address] [facility] [place] [address] Body temperature 98.6 [degF] Normal 37.0 [facility] Comment on above: Performed By: #### A BG ####[facility] ([id number])[address] [place] [address] HCO3 (Bld) [Moles/Vol] 20.7 mmol/L Low 22-26 P [facility] Comment on above: Performed By: #### A BG ####[facility] ([id number])[address] [place] [address] INSP. O2 CONC. 40 % Normal [facility] Comment on above: Performed By: #### A BG ####[facility] ([id number])[address] [place] [place] [address] Oxygen (Bld) [Partial pressure] 94 mm[Hg] Normal 80-100 [facility] Comment on above: Performed By: #### A BG ####[facility] ([id number])[address] [facility] [place] [address] Oxygen saturation in Blood 96.0 % Normal >90 [facility] Comment on above: Performed By: #### A BG ####[facility] ([id number])[address] [facility] [place] [address] OXYGEN SOURCE Vent [facility] Comment on above: Performed By: #### A BG ####[facility] ([id number])[address] [facility] [place] [address] PCO2 44.7 MMHG Normal 35-45 [facility] Comment on above: Performed By: #### A BG ####[facility] ([id number])[address] [place] [address] pH (Bld) 7.275 [pH] Low 7.350-7.45 0 [facility] Comment on above: Performed By: #### A BG ####[facility] ([id number])[address] [place] [address] SAMPLE SITE Breanne [facility] Comment on above: Performed By: #### A BG ####[facility] ([id number])[address] [facility] [place] [address] SAMPLE TYPE ARTERIAL Normal [facility] Comment on above: Performed By: #### A BG ####[facility] ([id number])[address] [address] CBC AND AUTO DIFFon 06-25-19 ABSOLUTE BASOPHIL 0.0 X10E9/L Normal 0.0-0.2 [facility] Comment on above: Performed By: #### C BCA, CMP, , 2776-04 ####[facility] ([id number])[address], [address] [place] [address] ABSOLUTE NEUTROPHIL 8.3 X10E9/L High 1.5-6.6 [facility] Comment on above: Performed By: #### C EWELINA, CMP, , 2776-04 ####[facility] ([id number])[address], [address] [place] [address] Basophils/100 WBC (Bld) 0.4 % Normal [facility] Comment on above: Performed By: #### C BCA, CMP, , 2776-04 ####[facility] ([id number])[address] [address]TO[facility] [place] [address] Eosinophils (Bld) [#/Vol] 0.0 10*3/uL Normal 0.0-0.4 [facility] Comment on above: Performed By: #### C BCA, CMP, , 2776-04 ####[facility] ([id number])[address], [address], [place] [address] Eosinophils/100 WBC (Bld) 0.3 % Normal [facility] Comment on above: Performed By: #### C BCA, CMP, , 2776-04 ####[facility] ([id number])[address], [address] [place] [address] Erythrocyte distribution width (RBC) [Ratio] 17.9 % High 11.5-15.0 [facility] Comment on above: Performed By: #### C BCA, CMP, , 2776-04 ####[facility] ([id number])[address], [address] [place] [address] Hematocrit (Bld) [Volume fraction] 25.6 % Low 35-47 [facility] Comment on above: Performed By: #### C BCA, [facility], , 2776-04 ####[facility] ([id number])[address], [address] [place] [address] Hemoglobin (Bld) [Mass/Vol] 8.4 g/dL Low 11.7-15.5 [facility] Comment on above: Performed By: #### C BCA, [facility], , 2776-04 ####[facility] ([id number])[address] [facility] [address], [place] [address] Lymphocytes (Bld) [#/Vol] 0.4 10*3/uL Low 1.0-3.5 [facility] Comment on above: Performed By: #### C BCA, [facility], , 2776-04 ####[facility] ([id number])[address], [place] [address] Lymphocytes/100 WBC (Bld) 4.6 % Normal [facility] Comment on above: Performed By: #### C BCA, [facility], , 2776-04 ####[facility] ([id number])[address], [place] [address] MCH (RBC) [Entitic mass] 31.2 pg Normal 27-34 [facility] Comment on above: Performed By: #### C BCA, [facility], , 2776-04 ####[facility] ([id number])[address], [address] [place] [address] MCHC (RBC) [Mass/Vol] 32.7 g/dL Normal 32-36 [facility] Comment on above: Performed By: #### C BCA, CMP, , 2776-04 ####[facility] ([id number])[address], [address], [place] [address] MCV (RBC) [Entitic vol] 95 fL Normal 80-100 [facility] Comment on above: Performed By: #### C BCA, CMP, , 2776-04 ####[facility] ([id number])[address], [address], [place] [address] Monocytes (Bld) [#/Vol] 0.2 10*3/uL Normal 0-0.9 [facility] Comment on above: Performed By: #### C BCA, CMP, , 2776-04 ####[facility] ([id number])[address], [address], [place] [address] Monocytes/100 WBC (Bld) 2.2 % Normal [facility] Comment on above: Performed By: #### C BCA, CMP, , 2776-04 ####[facility] ([id number])[address], [address], [place] [address] Neutrophils/100 WBC (Bld) 92.5 % Normal [facility] Comment on above: Performed By: #### C BCA, CMP, , 2776-04 ####[facility] ([id number])[address], [address], [place] [address] Platelet mean volume (Bld) [Entitic vol] 7.2 fL Normal 7-12 [facility] Comment on above: Performed By: #### C BCA, CMP, , 2776-04 ####[facility] ([id number])[address], [address], [place] [address] Platelets (Bld) [#/Vol] 329 10*3/uL Normal 150-450 [facility] Comment on above: Performed By: #### C BCA, CMP, , 2776-04 ####[facility] ([id number])[address], [address], [place] [address] RBC COUNT 2.69 X10E12/L Low 3.80-5.20 [facility] Comment on above: Performed By: #### C BCA, CMP, , 2776-04 ####[facility] ([id number])[address], [address] [place] [address] WBC (Bld) [#/Vol] 9.0 10*3/uL Normal 4.0-11.0 [facility] Comment on above: Performed By: #### C BCA, CMP, , 2776-04 ####[facility] ([id number])[address], [address], [place] [address] COMPREHENSIVE METABOLIC PANE Kael 06-24-2024 Albumin [Mass/Vol] 3.6 g/dL Normal 3.2-5.3 [facility] Comment on above: Performed By: #### C BCA, CMP, , 2776-04 ####[facility] ([id number])[address], [place] [address] ALP [Catalytic activity/Vol] 65 U/L Normal 39-130 [facility] Comment on above: Performed By: #### C BCA, CMP, , 2776-04 ####[facility] ([id number])[address], [place] [address] ALT [Catalytic activity/Vol] 6 U/L Normal 0-31 [facility] Comment on above: Performed By: #### C BCA, CMP, , 2776-04 ####[facility] ([id number])[address], [address], [place] [address] Anion gap [Moles/Vol] 15 mmol/L Normal 5-15 [facility] Comment on above: Performed By: #### C BCA, CMP, , 2776-04 ####[facility] ([id number])[address], [place] [address] AST [Catalytic activity/Vol] 10 U/L Normal 0-41 [facility] Comment on above: Performed By: #### C BCA, CMP, , 2776-04 ####[facility] ([id number])[address], [address], [place] [address] Bilirubin [Mass/Vol] 0.9 mg/dL Normal 0.3-1.2 [facility] Comment on above: Performed By: #### C BCA, CMP, , 2776-04 ####[facility] ([id number])[address], [address], [place] [address] Calcium [Mass/Vol] 10.0 mg/dL Normal 8.5-10.5 [facility] Comment on above: Performed By: #### C BCA, CMP, , 2776-04 ####[facility] ([id number])[address], [address], [place] [address] Chloride [Moles/Vol] 98 mmol/L Normal 98-109 [facility] Comment on above: Performed By: #### C BCA, CMP, , 2776-04 ####[facility] ([id number])[address], [address], [place] [address] CO2 [Moles/Vol] 20 mmol/L Low 22-32 [facility] Comment on above: Performed By: #### C BCA, CMP, , 2776-04 ####[facility] ([id number])[address], [address], [place] [address] Creatinine [Mass/Vol] 2.61 mg/dL High 0.40-1.00 [facility] Comment on above: Result Comment: METH OD TRACEABLE TO IDMS STANDARD Performed By: #### C RENA THEODORE, , 2776-04 ####[facility] ([id number])[address], [address], [place] [address] GFR/1.73 sq M.predicted among non-blacks MDRD (S/P/Bld) [Vol rate/Area] 20 mL/min/{1.73_m2} Low >59 [facility] Comment on above: Result Comment: Repo rted eGFR is based on theCKD-EPI 2020 equation that doesnot use a race coefficient. Performed By: #### C RENA THEODORE, , 2776-04 ####[facility] ([id number])[address], [place] [address] Glucose [Mass/Vol] 140 mg/dL High 65-99 [facility] Comment on above: Performed By: #### C RENA THEODORE, , 2776-04 ####[facility] ([id number])[address], [place] [address] Potassium [Moles/Vol] 4.3 mmol/L Normal 3.5-5.0 [facility] Comment on above: Performed By: #### C RENA THEODORE, , 2776-04 ####[facility] ([id number])[address], [place] [address] Protein [Mass/Vol] 6.7 g/dL Normal 6.0-8.0 [facility] Comment on above: Performed By: #### C RENA THEODORE, , 2776-04 ####[facility] ([id number])[address], [place] [address] Sodium [Moles/Vol] 133 mmol/L Low 134-146 [facility] Comment on above: Performed By: #### C RENA THEODORE, , 2776-04 ####[facility] ([id number])[address], [address], [place] [address] Urea nitrogen [Mass/Vol] 95 mg/dL High 5-27 [facility] Comment on above: Performed By: #### C RENA THEODORE, , 2776-04 ####[facility] ([id number])[address], [address], [place] [address] Calcium.ionized (Bld) [Mass/ Vol]on 06-24-2024 IONIZED CALCIUM 5.3 mg/dL Normal 4.5-5.3 [facility] Comment on above: Performed By: #### 3 8230-9, 66600-8 ####[facility] ([id number])[address], [address], [place] [address] MAGNESIUMon 06-24-2024 Magnesium [Mass/Vol] 2.2 mg/dL Normal 1.8-2.6 [facility] Comment on above: Performed By: #### C RENA THEODORE, , 2776-04 ####[facility] ([id number])[address], [address], [place] [address] Magnesium Ionized ISE (Bld) [Moles/Vol]on 06-24-2024 Magnesium [Moles/Vol] 0.55 mmol/L Normal 0.45-0.74 [facility] Comment on above: Result Comment: NEW REFERENCE RANGE Performed By: #### 3 8230-9, 09891-4 ####[facility] ([id number])[address], [address] [place] [address] PHOSPHORUSon 06-24-2024 Phosphate [Mass/Vol] 6.2 mg/dL High 2.4-4.9 [facility] Comment on above: Performed By: #### C EWELINA CMP, , 2776-04 ####[facility] ([id number])[address] [place] [address] XR CHEST 1 VWon 06-24-2024 XR CHEST 1 VW Normal [facility] XR CHEST 1 VW Normal [facility] CBC AND AUTO DIFFon 06-24-19 ABSOLUTE BASOPHIL 0.1 X10E9/L Normal 0.0-0.2 [facility] Comment on above: Performed By: #### C BCA, CMP, , 2776-04 ####[facility] ([id number])[address], [address], [place] [address] ABSOLUTE NEUTROPHIL 7.0 X10E9/L High 1.5-6.6 [facility] Comment on above: Performed By: #### C BCA, CMP, , 2776-04 ####[facility] ([id number])[address], [place] [address] Basophils/100 WBC (Bld) 1.0 % Normal [facility] Comment on above: Performed By: #### C BCA, CMP, , 2776-04 ####[facility] ([id number])[address], [address] [place] [address] Eosinophils (Bld) [#/Vol] 0.3 10*3/uL Normal 0.0-0.4 [facility] Comment on above: Performed By: #### C BCA, CMP, , 2776-04 ####[facility] ([id number])[address], [address] [place] [address] Eosinophils/100 WBC (Bld) 2.7 % Normal [facility] Comment on above: Performed By: #### C BCA, CMP, , 2776-04 ####[facility] ([id number])[address], [address] [place] [address] Erythrocyte distribution width (RBC) [Ratio] 18.6 % High 11.5-15.0 [facility] Comment on above: Performed By: #### C RENA THEODORE, , 2776-04 ####[facility] ([id number])[address] [address] Hematocrit (Bld) [Volume fraction] 23.7 % Low 35-47 [facility] Comment on above: Performed By: #### C EWELINA CMP, , 2776-04 ####[facility] ([id number])[address] [address] Hemoglobin (Bld) [Mass/Vol] 7.8 g/dL Low 11.7-15.5 [facility] Comment on above: Performed By: #### Bertha THEODORE CMP, , 2776-04 ####[facility] ([id number])[address] [address] Lymphocytes (Bld) [#/Vol] 1.2 10*3/uL Normal 1.0-3.5 [facility] Comment on above: Performed By: #### Bertha THEODORE, CMP, , 2776-04 ####[facility] ([id number])[address] [address] Lymphocytes/100 WBC (Bld) 12.1 % Normal [facility] Comment on above: Performed By: #### C EWELINA, CMP, , 2776-04 ####[facility] ([id number])[address] [address] MCH (RBC) [Entitic mass] 31.9 pg Normal 27-34 [facility] Comment on above: Performed By: #### Bertha THEODORE, CMP, , 2776-04 ####[facility] ([id number])[address] [place] [address] MCHC (RBC) [Mass/Vol] 33.1 g/dL Normal 32-36 [facility] Comment on above: Performed By: #### C BCA, CMP, , 2776-04 ####[facility] ([id number])[address] [place] [address] MCV (RBC) [Entitic vol] 96 fL Normal 80-100 [facility] Comment on above: Performed By: #### C BCA, CMP, , 2776-04 ####[facility] ([id number])[address], [address], [place] [address] Monocytes (Bld) [#/Vol] 1.4 10*3/uL High 0-0.9 [facility] Comment on above: Performed By: #### C BCA, CMP, , 2776-04 ####[facility] ([id number])[address], [place] [address] Monocytes/100 WBC (Bld) 13.9 % Normal [facility] Comment on above: Performed By: #### C BCA, CMP, , 2776-04 ####[facility] ([id number])[address], [place] [address] Neutrophils/100 WBC (Bld) 70.3 % Normal [facility] Comment on above: Performed By: #### C BCA, CMP, , 2776-04 ####[facility] ([id number])[address] [place] [address] Platelet mean volume (Bld) [Entitic vol] 7.5 fL Normal 7-12 [facility] Comment on above: Performed By: #### C BCA, CMP, , 2776-04 ####[facility] ([id number])[address], [place] [address] Platelets (Bld) [#/Vol] 244 10*3/uL Normal 150-450 [facility] Comment on above: Performed By: #### C BCA, CMP, , 1 ####[facility] ([id number])[address], [place] [address] RBC COUNT 2.46 X10E12/L Low 3.80-5.20 [facility] Comment on above: Performed By: #### C BCA, CMP, , 2776-04 ####[facility] ([id number])[address] [address] [place] [address] WBC (Bld) [#/Vol] 10.0 10*3/uL Normal 4.0-11.0 [facility] Comment on above: Performed By: #### C BCA, CMP, , 2776-04 ####[facility] ([id number])[address], [place] [address] COMPREHENSIVE METABOLIC PANE Kael 06-23-2024 Albumin [Mass/Vol] 3.6 g/dL Normal 3.2-5.3 [facility] Comment on above: Performed By: #### C BCA, CMP, , 2776-04 ####[facility] ([id number])[address], [place] [address] ALP [Catalytic activity/Vol] 68 U/L Normal 39-130 [facility] Comment on above: Performed By: #### C BCA, CMP, , 2776-04 ####[facility] ([id number])[address], [place] [address] ALT [Catalytic activity/Vol] 4 U/L Normal 0-31 [facility] Comment on above: Performed By: #### C BCA, CMP, , 2776-04 ####[facility] ([id number])[address], [place] [address] Anion gap [Moles/Vol] 13 mmol/L Normal 5-15 [facility] Comment on above: Performed By: #### C BCA, CMP, , 2776-04 ####[facility] ([id number])[address], [place] [address] AST [Catalytic activity/Vol] 12 U/L Normal 0-41 [facility] Comment on above: Performed By: #### C BCA, CMP, , 2776-04 ####[facility] ([id number])[address], [place] [address] Bilirubin [Mass/Vol] 0.8 mg/dL Normal 0.3-1.2 [facility] Comment on above: Performed By: #### C BCA, CMP, , 2776-04 ####[facility] ([id number])[address], [place] [address] Calcium [Mass/Vol] 9.7 mg/dL Normal 8.5-10.5 [facility] Comment on above: Performed By: #### C BCA, CMP, , 2776-04 ####[facility] ([id number])[address], [place] [address] Chloride [Moles/Vol] 101 mmol/L Normal 98-109 [facility] Comment on above: Performed By: #### C BCA, CMP, , 2776-04 ####[facility] ([id number])[address], [place] [address] CO2 [Moles/Vol] 21 mmol/L Low 22-32 [facility] Comment on above: Performed By: #### C BCA, CMP, , 2776-04 ####[facility] ([id number])[address], [place] [address] Creatinine [Mass/Vol] 2.08 mg/dL High 0.40-1.00 [facility] Comment on above: Result Comment: METH OD TRACEABLE TO IDMS STANDARD Performed By: #### C RENA THEODORE, , 2776-04 ####[facility] ([id number])[address], [place] [address] GFR/1.73 sq M.predicted among non-blacks MDRD (S/P/Bld) [Vol rate/Area] 27 mL/min/{1.73_m2} Low >59 [facility] Comment on above: Result Comment: Repo rted eGFR is based on theCKD-EPI 2020 equation that doesnot use a race coefficient. Performed By: #### C RENA THEODORE, , 2776-04 ####[facility] ([id number])[address], [place] [address] Glucose [Mass/Vol] 103 mg/dL High 65-99 [facility] Comment on above: Performed By: #### C RENA THEODORE, 2776-04 ####[facility] ([id number])[address], [place] [address] Potassium [Moles/Vol] 4.3 mmol/L Normal 3.5-5.0 [facility] Comment on above: Performed By: #### C BCA, CMP, 2776-04 ####[facility] ([id number])[address] [address], [place] [address] Protein [Mass/Vol] 6.5 g/dL Normal 6.0-8.0 [facility] Comment on above: Performed By: #### C BCA CMP, , 2776-04 ####[facility] ([id number])[address], [place] [address] Sodium [Moles/Vol] 135 mmol/L Normal 134-146 [facility] Comment on above: Performed By: #### C BCA, CMP, 96744-7, 2777-1 ####[facility] ([id number])[address], [place] [address] Urea nitrogen [Mass/Vol] 73 mg/dL High 5-27 [facility] Comment on above: Performed By: #### C BCA, CMP, 25165-3, 2777-1 ####[facility] ([id number])[address], [address], [place] [address] HGBon 06-23-2024 Hematocrit (Bld) [Volume fraction] 23.2 % Low 35-47 [facility] Comment on above: Performed By: #### H H ####[facility] ([id number])[address], [place] [address] Hemoglobin (Bld) [Mass/Vol] 7.7 g/dL Low 11.7-15.5 [facility] Comment on above: Performed By: #### H H ####[facility] ([id number])[address], [address], [place] [address] Hematocrit (Bld) [Volume fraction] 23.3 % Low 35-47 [facility] Comment on above: Performed By: #### H H ####[facility] ([id number])[address], [address], [place] [address] Hemoglobin (Bld) [Mass/Vol] 7.6 g/dL Low 11.7-15.5 [facility] Comment on above: Performed By: #### H H ####[facility] ([id number])[address], [address], [place] [address] MAGNESIUMon 06-23-2024 Magnesium [Mass/Vol] 2.2 mg/dL Normal 1.8-2.6 [facility] Comment on above: Performed By: #### C BCA, CMP, , 2777-1 ####[facility] ([id number])[address], [place] [address] PHOSPHORUSon 06-23-2024 Phosphate [Mass/Vol] 5.1 mg/dL High 2.4-4.9 [facility] Comment on above: Performed By: #### C BCA, CMP, , 2777-1 ####[facility] ([id number])[address] [place] [address] XR CHEST 1 VWon 06-23-2024 XR CHEST 1 VW Normal [facility] ARTERIAL BLOOD GASon 025 ROBERT'S TEST Normal [facility] Comment on above: Performed By: #### A BG ####[facility] ([id number])[address] [facility] [place] [address] BASE,DEFICIT 5.0 MMOL/L High 0.0-2.0 [facility] Comment on above: Performed By: #### A BG ####[facility] ([id number])[address] [place] [place] [address] Body temperature 98.6 [degF] Normal 37.0 [facility] Comment on above: Performed By: #### A BG ####[facility] ([id number])[address] [place] [place] [address] HCO3 (Bld) [Moles/Vol] 21.3 mmol/L Low 22-26 P [facility] Comment on above: Performed By: #### A BG ####[facility] ([id number])[address] [place] [place] [address] INSP. O2 CONC. 40 % Normal [facility] Comment on above: Performed By: #### A BG ####[facility] ([id number])[address] [place] [address] Oxygen (Bld) [Partial pressure] 160 mm[Hg] High 80-100 [facility] Comment on above: Performed By: #### A BG ####[facility] ([id number])[address] [place] [address] Oxygen saturation in Blood 99.0 % Normal >90 [facility] Comment on above: Performed By: #### A BG ####[facility] ([id number])[address] [place] [address] OXYGEN SOURCE Vent [facility] Comment on above: Performed By: #### A BG ####[facility] ([id number])[address] [place] [address] PCO2 44.8 MMHG Normal 35-45 [facility] Comment on above: Performed By: #### A BG ####[facility] ([id number])[address] [place] [address] pH (Bld) 7.286 [pH] Low 7.350-7.45 0 [facility] Comment on above: Performed By: #### A BG ####[facility] ([id number])[address] [place] [address] SAMPLE SITE Breanne [facility] Comment on above: Performed By: #### A BG ####[facility] ([id number])[address] [place] [address] SAMPLE TYPE ARTERIAL Normal [facility] Comment on above: Performed By: #### A BG ####[facility] ([id number])[address] [place] [address] CBC AND AUTO DIFFon 03-15-20 25 ABSOLUTE BASOPHIL 0.1 X10E9/L Normal 0.0-0.2 [facility] Comment on above: Performed By: #### C BCA ####[facility] ([id number])[address], [address], [place] [address] ABSOLUTE NEUTROPHIL 6.5 X10E9/L Normal 1.5-6.6 [facility] Comment on above: Performed By: #### C BCA ####[facility] ([id number])[address], [place] [address] Basophils/100 WBC (Bld) 1.3 % Normal [facility] Comment on above: Performed By: #### C BCA ####[facility] ([id number])[address], [address], [place] [address] Eosinophils (Bld) [#/Vol] 0.3 10*3/uL Normal 0.0-0.4 [facility] Comment on above: Performed By: #### C BCA ####[facility] ([id number])[address], [address] [place] [address] Eosinophils/100 WBC (Bld) 2.9 % Normal [facility] Comment on above: Performed By: #### C BCA ####[facility] ([id number])[address], [address], [place] [address] Erythrocyte distribution width (RBC) [Ratio] 18.8 % High 11.5-15.0 [facility] Comment on above: Performed By: #### C BCA ####[facility] ([id number])[address], [address], [place] [address] Hematocrit (Bld) [Volume fraction] 24.8 % Low 35-47 [facility] Comment on above: Performed By: #### C BCA ####[facility] ([id number])[address], [address], [place] [address] Hemoglobin (Bld) [Mass/Vol] 8.2 g/dL Low 11.7-15.5 [facility] Comment on above: Performed By: #### C BCA ####[facility] ([id number])[address], [address], [place] [address] Lymphocytes (Bld) [#/Vol] 1.5 10*3/uL Normal 1.0-3.5 [facility] Comment on above: Performed By: #### C BCA ####[facility] ([id number])[address], [address], [place] [address] Lymphocytes/100 WBC (Bld) 16.4 % Normal [facility] Comment on above: Performed By: #### C BCA ####[facility] ([id number])[address] [address], [place] [address] MCH (RBC) [Entitic mass] 31.9 pg Normal 27-34 [facility] Comment on above: Performed By: #### C BCA ####[facility] ([id number])[address], [address] [place] [address] MCHC (RBC) [Mass/Vol] 33.0 g/dL Normal 32-36 [facility] Comment on above: Performed By: #### C BCA ####[facility] ([id number])[address] [address], [place] [address] MCV (RBC) [Entitic vol] 97 fL Normal 80-100 [facility] Comment on above: Performed By: #### C BCA ####[facility] ([id number])[address] [address] [place] [address] Monocytes (Bld) [#/Vol] 1.0 10*3/uL High 0-0.9 [facility] Comment on above: Performed By: #### C BCA ####[facility] ([id number])[address], [address] [place] [address] Monocytes/100 WBC (Bld) 10.3 % Normal [facility] Comment on above: Performed By: #### C BCA ####[facility] ([id number])[address] [address] [place] [address] Neutrophils/100 WBC (Bld) 69.1 % Normal [facility] Comment on above: Performed By: #### C BCA ####[facility] ([id number])[address] [address] [place] [address] Platelet mean volume (Bld) [Entitic vol] 7.4 fL Normal 7-12 [facility] Comment on above: Performed By: #### C BCA ####[facility] ([id number])[address] [address] Platelets (Bld) [#/Vol] 164 10*3/uL Normal 150-450 [facility] Comment on above: Performed By: #### C BCA ####[facility] ([id number])[address] [address], [place] [address] RBC COUNT 2.57 X10E12/L Low 3.80-5.20 [facility] Comment on above: Performed By: #### C BCA ####[facility] ([id number])[address] [address] WBC (Bld) [#/Vol] 9.4 10*3/uL Normal 4.0-11.0 [facility] Comment on above: Performed By: #### C BCA ####[facility] ([id number])[address] [address] [place] [address] COMPREHENSIVE METABOLIC PANE Kael 06-22-2024 Albumin [Mass/Vol] 3.8 g/dL Normal 3.2-5.3 [facility] Comment on above: Performed By: #### [place], [address]-4, 2777-1 ####[facility] ([id number])[address], [address], [place] [address] ALP [Catalytic activity/Vol] 76 U/L Normal 39-130 [facility] Comment on above: Performed By: #### C MARY, , 2776-04 ####[facility] ([id number])[address], [address], [place] [address] ALT [Catalytic activity/Vol] 4 U/L Normal 0-31 [facility] Comment on above: Performed By: #### C MARY, , 2776-04 ####[facility] ([id number])[address], [address], [place] [address] Anion gap [Moles/Vol] 13 mmol/L Normal 5-15 [facility] Comment on above: Performed By: #### C MARY, , 2776-04 ####[facility] ([id number])[address], [address], [place] [address] AST [Catalytic activity/Vol] 17 U/L Normal 0-41 [facility] Comment on above: Performed By: #### C MARY, , 2776-04 ####[facility] ([id number])[address], [address], [place] [address] Bilirubin [Mass/Vol] 0.9 mg/dL Normal 0.3-1.2 [facility] Comment on above: Performed By: #### C MARY, , 2776-04 ####[facility] ([id number])[address], [address], [place] [address] Calcium [Mass/Vol] 9.4 mg/dL Normal 8.5-10.5 [facility] Comment on above: Performed By: #### C MARY, , 2776-04 ####[facility] ([id number])[address], [address], [place] [address] Chloride [Moles/Vol] 101 mmol/L Normal 98-109 [facility] Comment on above: Performed By: #### C MARY, , 2776-04 ####[facility] ([id number])[address], [place] [address] CO2 [Moles/Vol] 21 mmol/L Low 22-32 [facility] Comment on above: Performed By: #### C MARY, , 2776-04 ####[facility] ([id number])[address], [address], [place] [address] Creatinine [Mass/Vol] 1.48 mg/dL High 0.40-1.00 [facility] Comment on above: Result Comment: METH OD TRACEABLE TO IDMS STANDARD Performed By: #### Bertha HERNANDEZ, , 2776-04 ####[facility] ([id number])[address], [address], [place] [address] GFR/1.73 sq M.predicted among non-blacks MDRD (S/P/Bld) [Vol rate/Area] 40 mL/min/{1.73_m2} Low >59 [facility] Comment on above: Result Comment: Repo rted eGFR is based on theCKD-EPI 2020 equation that doesnot use a race coefficient. Performed By: #### Bertha HERNANDEZ, , 2776-04 ####[facility] ([id number])[address], [address], [place] [address] Glucose [Mass/Vol] 127 mg/dL High 65-99 [facility] Comment on above: Performed By: #### Bertha HERNANDEZ, , 2776-04 ####[facility] ([id number])[address], [place] [address] Potassium [Moles/Vol] 3.8 mmol/L Normal 3.5-5.0 [facility] Comment on above: Performed By: #### Bertha HERNANDEZ, , 2777-1 ####[facility] ([id number])[address], [address], [place] [address] Protein [Mass/Vol] 6.5 g/dL Normal 6.0-8.0 [facility] Comment on above: Performed By: #### Bertha HERNANDEZ, , 2776- ####[facility] ([id number])[address] [place] [address] Sodium [Moles/Vol] 135 mmol/L Normal 134-146 [facility] Comment on above: Performed By: #### Bertha HERNANDEZ, , 277- ####[facility] ([id number])[address], [place] [address] Urea nitrogen [Mass/Vol] 40 mg/dL High 5-27 [facility] Comment on above: Performed By: #### Bertha HERNANDEZ, , 2777-1 ####[facility] ([id number])[address], [place] [address] HGBon 06-22-2024 Hematocrit (Bld) [Volume fraction] 24.4 % Low 35-47 [facility] Comment on above: Performed By: #### H H ####[facility] ([id number])[address], [address], [place] [address] Hemoglobin (Bld) [Mass/Vol] 8.1 g/dL Low 11.7-15.5 [facility] Comment on above: Performed By: #### H H ####[facility] ([id number])[address], [address], [place] [address] Hematocrit (Bld) [Volume fraction] 23.6 % Low 35-47 [facility] Comment on above: Performed By: #### H H ####[facility] ([id number])[address], [place] [address] Hemoglobin (Bld) [Mass/Vol] 7.8 g/dL Low 11.7-15.5 [facility] Comment on above: Performed By: #### H H ####[facility] ([id number])[address] [place] [address] Hematocrit (Bld) [Volume fraction] 20.6 % Low 35-47 [facility] Comment on above: Performed By: #### H H ####[facility] ([id number])[address], [place] [address] Hemoglobin (Bld) [Mass/Vol] 6.7 g/dL Critically low 11.7-15.5 [facility] Comment on above: Performed By: #### H H ####[facility] ([id number])[address], [place] [address] MAGNESIUMon 06-22-2024 Magnesium [Mass/Vol] 1.8 mg/dL Normal 1.8-2.6 [facility] Comment on above: Performed By: #### C , 51870-8, 2777-1 ####[facility] ([id number])[address], [address] [place] [address], [place] [address] Magnesium Ionized ISE (Bld) [Moles/Vol]on 06-22-2024 Magnesium [Moles/Vol] 0.64 mmol/L Normal 0.45-0.74 [facility] Comment on above: Result Comment: NEW REFERENCE RANGE Performed By: #### 7 3572-0 ####[facility] ([id number])[address], [place] [address] PHOSPHORUSon 06-22-2024 Phosphate [Mass/Vol] 3.4 mg/dL Normal 2.4-4.9 [facility] Comment on above: Performed By: #### [place], [address]-1, 2777-1 ####[facility] ([id number])[address] [place] [address] POTASSIUMon 06-22-2024 Potassium [Moles/Vol] 4.0 mmol/L Normal 3.5-5.0 [facility] Comment on above: Performed By: #### 2 823-3 ####[facility] ([id number])[address] [place] [address] XR CHEST 1 VWon 06-22-2024 XR CHEST 1 VW Normal [facility] ARTERIAL BLOOD GASon 025 ROBERT'S TEST Normal [facility] Comment on above: Performed By: #### A BG ####[facility] ([id number])[address] [place] [address] BASE,DEFICIT 10.0 MMOL/L High 0.0-2.0 [facility] Comment on above: Performed By: #### A BG ####[facility] ([id number])[address] [place] [address] Body temperature 98.6 [degF] Normal 37.0 [facility] Comment on above: Performed By: #### A BG ####[facility] ([id number])[address] [place] [address] HCO3 (Bld) [Moles/Vol] 16.6 mmol/L Low 22-26 P [facility] Comment on above: Performed By: #### A BG ####[facility] ([id number])[address] [place] [address] INSP. O2 CONC. 40 % Normal [facility] Comment on above: Performed By: #### A BG ####[facility] ([id number])[address] [place] [address] Oxygen (Bld) [Partial pressure] 165 mm[Hg] High 80-100 [facility] Comment on above: Performed By: #### A BG ####[facility] ([id number])[address] [place] [address] Oxygen saturation in Blood 99.0 % Normal >90 [facility] Comment on above: Performed By: #### A BG ####[facility] ([id number])[address] [place] [address] OXYGEN SOURCE Vent [facility] Comment on above: Performed By: #### A BG ####[facility] ([id number])[address] [place] [address] PCO2 36.6 MMHG Normal 35-45 [facility] Comment on above: Performed By: #### A BG ####[facility] ([id number])[address] [place] [address] pH (Bld) 7.265 [pH] Low 7.350-7.45 0 [facility] Comment on above: Performed By: #### A BG ####[facility] ([id number])[address] [place] [address] SAMPLE SITE Breanne [facility] Comment on above: Performed By: #### A BG ####[facility] ([id number])[address] [place] [address] SAMPLE TYPE ARTERIAL Normal [facility] Comment on above: Performed By: #### A BG ####[facility] ([id number])[address] [place] [address] CBC AND AUTO DIFFon 06-22-19 25 ABSOLUTE BASOPHIL 0.1 X10E9/L Normal 0.0-0.2 [facility] Comment on above: Performed By: #### C BCA, CMP, 73958-0, 2777-1 ####[facility] ([id number])[address] [place] [address] ABSOLUTE NEUTROPHIL 5.1 X10E9/L Normal 1.5-6.6 [facility] Comment on above: Performed By: #### C BCA, CMP, , 2776-04 ####[facility] ([id number])[address], [place] [address] Basophils/100 WBC (Bld) 1.0 % Normal [facility] Comment on above: Performed By: #### C EWELINA, CMP, , 2776-04 ####[facility] ([id number])[address], [place] [address] Eosinophils (Bld) [#/Vol] 0.2 10*3/uL Normal 0.0-0.4 [facility] Comment on above: Performed By: #### C BCA, CMP, , 2776-04 ####[facility] ([id number])[address], [place] [address] Eosinophils/100 WBC (Bld) 2.7 % Normal [facility] Comment on above: Performed By: #### C BCA, CMP, , 2776-04 ####[facility] ([id number])[address] [address], [place] [address] Erythrocyte distribution width (RBC) [Ratio] 17.5 % High 11.5-15.0 [facility] Comment on above: Performed By: #### C BCA, CMP, , 2776-04 ####[facility] ([id number])[address], [place] [address] Hematocrit (Bld) [Volume fraction] 21.0 % Low 35-47 [facility] Comment on above: Performed By: #### C BCA, CMP, , 2776-04 ####[facility] ([id number])[address] [address] [place] [address] Lymphocytes (Bld) [#/Vol] 1.0 10*3/uL Normal 1.0-3.5 [facility] Comment on above: Performed By: #### C EWELINA CMP, , 2776-04 ####[facility] ([id number])[address] [address] Lymphocytes/100 WBC (Bld) 14.1 % Normal [facility] Comment on above: Performed By: #### Bertha THEODORE, CMP, , 2776-04 ####[facility] ([id number])[address] [address] MCH (RBC) [Entitic mass] 32.8 pg Normal 27-34 [facility] Comment on above: Performed By: #### Bertha THEODORE, CMP, , 2776-04 ####[facility] ([id number])[address] [address] MCHC (RBC) [Mass/Vol] 33.1 g/dL Normal 32-36 [facility] Comment on above: Performed By: #### Bertha THEODORE CMP, , 2776-04 ####[facility] ([id number])[address] [address] MCV (RBC) [Entitic vol] 99 fL Normal 80-100 [facility] Comment on above: Performed By: #### Bertha BCA, CMP, , 2776-04 ####[facility] ([id number])[address] [address] Monocytes (Bld) [#/Vol] 0.7 10*3/uL Normal 0-0.9 [facility] Comment on above: Performed By: #### Bertha BCA, CMP, , 2776-04 ####[facility] ([id number])[address] [place] [address] Monocytes/100 WBC (Bld) 10.5 % Normal [facility] Comment on above: Performed By: #### C BCA, CMP, , 2776-04 ####[facility] ([id number])[address] [place] [address] Neutrophils/100 WBC (Bld) 71.7 % Normal [facility] Comment on above: Performed By: #### C BCA, CMP, , 2776-04 ####[facility] ([id number])[address] [place] [address] Platelet mean volume (Bld) [Entitic vol] 7.9 fL Normal 7-12 [facility] Comment on above: Performed By: #### C BCA, CMP, , 2776-04 ####[facility] ([id number])[address] [place] [address] Platelets (Bld) [#/Vol] 78 10*3/uL Low 150-450 [facility] Comment on above: Performed By: #### C BCA, CMP, , 2776-04 ####[facility] ([id number])[address], [place] [address] RBC COUNT 2.12 X10E12/L Low 3.80-5.20 [facility] Comment on above: Performed By: #### C BCA, CMP, , 2776-04 ####[facility] ([id number])[address], [address], [place] [address] WBC (Bld) [#/Vol] 7.1 10*3/uL Normal 4.0-11.0 [facility] Comment on above: Performed By: #### C BCA, CMP, , 2776-04 ####[facility] ([id number])[address], [address], [place] [address] COMPREHENSIVE METABOLIC PANE Kael 06-21-2024 Albumin [Mass/Vol] 3.7 g/dL Normal 3.2-5.3 [facility] Comment on above: Performed By: #### C BCA, CMP, , 2776- ####[facility] ([id number])[address], [place] [address] ALP [Catalytic activity/Vol] 66 U/L Normal 39-130 [facility] Comment on above: Performed By: #### C BCA, CMP, , 2776-04 ####[facility] ([id number])[address], [place] [address] ALT [Catalytic activity/Vol] 3 U/L Normal 0-31 [facility] Comment on above: Performed By: #### C BCA, CMP, , 2776-04 ####[facility] ([id number])[address], [place] [address] Anion gap [Moles/Vol] 15 mmol/L Normal 5-15 [facility] Comment on above: Performed By: #### C BCA, CMP, , 2776-04 ####[facility] ([id number])[address], [address], [place] [address] AST [Catalytic activity/Vol] 11 U/L Normal 0-41 [facility] Comment on above: Performed By: #### C BCA, CMP, , 2776-04 ####[facility] ([id number])[address], [address], [place] [address] Bilirubin [Mass/Vol] 0.7 mg/dL Normal 0.3-1.2 [facility] Comment on above: Performed By: #### C BCA, CMP, , 2776-04 ####[facility] ([id number])[address] [place] [address] Calcium [Mass/Vol] 9.4 mg/dL Normal 8.5-10.5 [facility] Comment on above: Performed By: #### C BCA, CMP, , 2776-04 ####[facility] ([id number])[address] [place] [address] Chloride [Moles/Vol] 107 mmol/L Normal 98-109 [facility] Comment on above: Performed By: #### C BCA, CMP, , 2776-04 ####[facility] ([id number])[address], [place] [address] CO2 [Moles/Vol] 18 mmol/L Low 22-32 [facility] Comment on above: Performed By: #### C BCA, CMP, , 2776-04 ####[facility] ([id number])[address] [place] [address] Creatinine [Mass/Vol] 2.04 mg/dL High 0.40-1.00 [facility] Comment on above: Result Comment: METH OD TRACEABLE TO IDMS STANDARD Performed By: #### C BCA, CMP, , 2776-04 ####[facility] ([id number])[address] [place] [address] GFR/1.73 sq M.predicted among non-blacks MDRD (S/P/Bld) [Vol rate/Area] 27 mL/min/{1.73_m2} Low >59 [facility] Comment on above: Result Comment: Repo rted eGFR is based on theCKD-EPI 2020 equation that doesnot use a race coefficient. Performed By: #### C BCA, CMP, , 2776-04 ####[facility] ([id number])[address], [address], [place] [address] Glucose [Mass/Vol] 98 mg/dL Normal 65-99 [facility] Comment on above: Performed By: #### C BCA, CMP, , 2776-04 ####[facility] ([id number])[address], [address], [place] [address] Potassium [Moles/Vol] 3.8 mmol/L Normal 3.5-5.0 [facility] Comment on above: Performed By: #### C BCA, CMP, , 2776-04 ####[facility] ([id number])[address], [address], [place] [address] Protein [Mass/Vol] 6.1 g/dL Normal 6.0-8.0 [facility] Comment on above: Performed By: #### C BCA, [facility], , 2776-04 ####[facility] ([id number])[address], [address], [place] [address] Sodium [Moles/Vol] 140 mmol/L Normal 134-146 [facility] Comment on above: Performed By: #### C BCA, CMP, , 2776-04 ####[facility] ([id number])[address], [address], [place] [address] Urea nitrogen [Mass/Vol] 55 mg/dL High 5-27 [facility] Comment on above: Performed By: #### C BCA, CMP, , 2776-04 ####[facility] ([id number])[address], [address], [place] [address] HGBon 06-21-2024 Hematocrit (Bld) [Volume fraction] 21.9 % Low 35-47 [facility] Comment on above: Performed By: #### H H ####[facility] ([id number])[address], [address] [place] [address] Hemoglobin (Bld) [Mass/Vol] 7.1 g/dL Low 11.7-15.5 [facility] Comment on above: Performed By: #### H H ####[facility] ([id number])[address], [address], [place] [address] Hematocrit (Bld) [Volume fraction] 21.6 % Low 35-47 [facility] Comment on above: Performed By: #### H H ####[facility] ([id number])[address], [place] [address] Hemoglobin (Bld) [Mass/Vol] 7.0 g/dL Low 11.7-15.5 [facility] Comment on above: Performed By: #### H H ####[facility] ([id number])[address], [place] [address] Performed By: #### C EWELINA CMP, , 2776- ####[facility] ([id number])[address] [place] [address] MAGNESIUMon 06-21-2024 Magnesium [Mass/Vol] 2.0 mg/dL Normal 1.8-2.6 [facility] Comment on above: Performed By: #### C EWELINA, CMP, , 2776- ####[facility] ([id number])[address] [place] [address] PHOSPHORUSon 06-21-2024 Phosphate [Mass/Vol] 5.5 mg/dL High 2.4-4.9 [facility] Comment on above: Performed By: #### C EWELINA, CMP, , 7- ####[facility] ([id number])[address] [place] [address] POTASSIUMon 06-21-2024 Potassium [Moles/Vol] 4.0 mmol/L Normal 3.5-5.0 [facility] Comment on above: Performed By: #### 2 823-3 ####[facility] ([id number])[address], [place] [address] XR CHEST 1 VWon 06-21-2024 XR CHEST 1 VW Normal [facility] ARTERIAL BLOOD GASon 025 ROBERT'S TEST Pass Normal [facility] Comment on above: Performed By: #### A BG ####[facility] ([id number])[address] [place] [address] BASE,DEFICIT 6.0 MMOL/L High 0.0-2.0 [facility] Comment on above: Performed By: #### A BG ####[facility] ([id number])[address] [place] [address] Body temperature 98.6 [degF] Normal 37.0 [facility] Comment on above: Performed By: #### A BG ####[facility] ([id number])[address] [place] [address] HCO3 (Bld) [Moles/Vol] 20.1 mmol/L Low 22-26 [facility] Comment on above: Performed By: #### A BG ####[facility] ([id number])[address] [place] [address] INSP. O2 CONC. 40 % Normal [facility] Comment on above: Performed By: #### A BG ####[facility] ([id number])[address] [place] [address] Oxygen (Bld) [Partial pressure] 101 mm[Hg] High 80-100 [facility] Comment on above: Performed By: #### A BG ####[facility] ([id number])[address] [place] [address] Oxygen saturation in Blood 97.0 % Normal >90 [facility] Comment on above: Performed By: #### A BG ####[facility] ([id number])[address] [place] [address] OXYGEN SOURCE Vent [facility] Comment on above: Performed By: #### A BG ####[facility] ([id number])[address] [place] [address] PCO2 43.3 MMHG Normal 35-45 [facility] Comment on above: Performed By: #### A BG ####[facility] ([id number])[address] [place] [address] pH (Bld) 7.274 [pH] Low 7.350-7.45 0 [facility] Comment on above: Performed By: #### A BG ####[facility] ([id number])[address] [place] [address] SAMPLE SITE Breanne [facility] Comment on above: Performed By: #### A BG ####[facility] ([id number])[address] [place] [address] SAMPLE TYPE ARTERIAL Normal [facility] Comment on above: Performed By: #### A BG ####[facility] ([id number])[address] [place] [address] CBC AND AUTO DIFFon 06-21-19 25 ABSOLUTE BASOPHIL 0.1 X10E9/L Normal 0.0-0.2 [facility] Comment on above: Performed By: #### C BCA, [facility], [address]-2, 2777-1 ####[facility] ([id number])[address] [facility] [address], [place] [address] ABSOLUTE NEUTROPHIL 3.8 X10E9/L Normal 1.5-6.6 [facility] Comment on above: Performed By: #### C BCA, CMP, , 2776-04 ####[facility] ([id number])[address], [address] [place] [address] Basophils/100 WBC (Bld) 1.0 % Normal [facility] Comment on above: Performed By: #### C BCA, CMP, , 2776-04 ####[facility] ([id number])[address] [place] [address] Eosinophils (Bld) [#/Vol] 0.3 10*3/uL Normal 0.0-0.4 [facility] Comment on above: Performed By: #### C BCA, CMP, , 2776-04 ####[facility] ([id number])[address], [place] [address] Eosinophils/100 WBC (Bld) 4.8 % Normal [facility] Comment on above: Performed By: #### C BCA, [facility], , 2776-04 ####[facility] ([id number])[address] [place] [address] Erythrocyte distribution width (RBC) [Ratio] 17.9 % High 11.5-15.0 [facility] Comment on above: Performed By: #### C BCA, CMP, , 2776-04 ####[facility] ([id number])[address] [place] [address] Hematocrit (Bld) [Volume fraction] 22.6 % Low 35-47 [facility] Comment on above: Performed By: #### C BCA, CMP, , 2776-04 ####[facility] ([id number])[address] [place] [address] Hemoglobin (Bld) [Mass/Vol] 7.2 g/dL Low 11.7-15.5 [facility] Comment on above: Performed By: #### C RENA THEODORE, , 2776-04 ####[facility] ([id number])[address], [address] [place] [address] Lymphocytes (Bld) [#/Vol] 1.0 10*3/uL Normal 1.0-3.5 [facility] Comment on above: Performed By: #### C RENA THEODORE, , 2776-04 ####[facility] ([id number])[address], [address], [place] [address] Lymphocytes/100 WBC (Bld) 17.1 % Normal [facility] Comment on above: Performed By: #### Bertha THEODORE CMP, , 2776-04 ####[facility] ([id number])[address], [address] [place] [address] MCH (RBC) [Entitic mass] 31.8 pg Normal 27-34 [facility] Comment on above: Performed By: #### Bertha THEODORE CMP, , 2776-04 ####[facility] ([id number])[address] [place] [address] MCHC (RBC) [Mass/Vol] 31.8 g/dL Low 32-36 [facility] Comment on above: Performed By: #### Bertha THEODORE CMP, , 2776-04 ####[facility] ([id number])[address], [address] [place] [address] MCV (RBC) [Entitic vol] 100 fL Normal 80-100 P [facility] Comment on above: Performed By: #### Bertha THEODORE CMP, , 2776-04 ####[facility] ([id number])[address], [address], [place] [address] Monocytes (Bld) [#/Vol] 0.7 10*3/uL Normal 0-0.9 [facility] Comment on above: Performed By: #### C EWELINA, CMP, , 2776-04 ####[facility] ([id number])[address], [address] [place] [address] Monocytes/100 WBC (Bld) 11.9 % Normal [facility] Comment on above: Performed By: #### C EWELINA, CMP, , 2776-04 ####[facility] ([id number])[address] [place] [address] Neutrophils/100 WBC (Bld) 65.2 % Normal [facility] Comment on above: Performed By: #### Bertha THEODORE, CMP, , 2776-04 ####[facility] ([id number])[address], [address] [place] [address] Platelet mean volume (Bld) [Entitic vol] 7.6 fL Normal 7-12 [facility] Comment on above: Performed By: #### Bertha THEODORE, CMP, , 2776-04 ####[facility] ([id number])[address] [place] [address] Platelets (Bld) [#/Vol] 58 10*3/uL Low 150-450 [facility] Comment on above: Performed By: #### Bertha THEODORE, CMP, , 2776-04 ####[facility] ([id number])[address], [address] [place] [address] RBC COUNT 2.26 X10E12/L Low 3.80-5.20 [facility] Comment on above: Performed By: #### Bertha BCA, CMP, , 2776-04 ####[facility] ([id number])[address], [address] [place] [address] WBC (Bld) [#/Vol] 5.8 10*3/uL Normal 4.0-11.0 [facility] Comment on above: Performed By: #### C BCA, CMP, , 2776- ####[facility] ([id number])[address], [address], [place] [address] COMPREHENSIVE METABOLIC PANE Kael 06-20-2024 Albumin [Mass/Vol] 3.6 g/dL Normal 3.2-5.3 [facility] Comment on above: Performed By: #### C BCA, CMP, , 2776- ####[facility] ([id number])[address], [address], [place] [address] ALP [Catalytic activity/Vol] 61 U/L Normal 39-130 [facility] Comment on above: Performed By: #### C BCA, CMP, , 2776- ####[facility] ([id number])[address], [address], [place] [address] ALT [Catalytic activity/Vol] U/L Normal 0-31 [facility] Comment on above: Performed By: #### C BCA, CMP, , 2776-04 ####[facility] ([id number])[address], [address], [place] [address] Anion gap [Moles/Vol] 10 mmol/L Normal 5-15 [facility] Comment on above: Performed By: #### C BCA, CMP, , 2776- ####[facility] ([id number])[address], [address], [place] [address] AST [Catalytic activity/Vol] 11 U/L Normal 0-41 [facility] Comment on above: Performed By: #### C BCA, CMP, , 2776- ####[facility] ([id number])[address], [address], [place] [address] Bilirubin [Mass/Vol] 0.8 mg/dL Normal 0.3-1.2 [facility] Comment on above: Performed By: #### C BCA, CMP, , 2776-04 ####[facility] ([id number])[address], [place] [address] Calcium [Mass/Vol] 9.0 mg/dL Normal 8.5-10.5 [facility] Comment on above: Performed By: #### C BCA, CMP, , 2776-04 ####[facility] ([id number])[address], [address] [address] Chloride [Moles/Vol] 108 mmol/L Normal 98-109 [facility] Comment on above: Performed By: #### C BCA, CMP, , 2776-04 ####[facility] ([id number])[address] [place] [address] CO2 [Moles/Vol] 21 mmol/L Low 22-32 [facility] Comment on above: Performed By: #### C BCA, CMP, , 2776-04 ####[facility] ([id number])[address] [address] Creatinine [Mass/Vol] 1.44 mg/dL High 0.40-1.00 [facility] Comment on above: Result Comment: METH OD TRACEABLE TO IDMS STANDARD Performed By: #### C BCA, CMP, , 2776-04 ####[facility] ([id number])[address] [address] GFR/1.73 sq M.predicted among non-blacks MDRD (S/P/Bld) [Vol rate/Area] 41 mL/min/{1.73_m2} Low >59 [facility] Comment on above: Result Comment: Repo rted eGFR is based on theCKD-EPI 2020 equation that doesnot use a race coefficient. Performed By: #### C EWELINA [facility], , 2776-04 ####[facility] ([id number])[address], [place] [address] Glucose [Mass/Vol] 82 mg/dL Normal 65-99 [facility] Comment on above: Performed By: #### C EWELINA [facility], , 2776-04 ####[facility] ([id number])[address], [place] [address] Potassium [Moles/Vol] 3.7 mmol/L Normal 3.5-5.0 [facility] Comment on above: Performed By: #### C EWELINA [facility], , 2776-04 ####[facility] ([id number])[address] [place] [address] Protein [Mass/Vol] 5.8 g/dL Low 6.0-8.0 [facility] Comment on above: Performed By: #### C EWELINA [facility], , 2776-04 ####[facility] ([id number])[address] [address] [place] [address] Sodium [Moles/Vol] 139 mmol/L Normal 134-146 [facility] Comment on above: Performed By: #### C EWELINA [facility], , 2776-04 ####[facility] ([id number])[address] [place] [address] Urea nitrogen [Mass/Vol] 30 mg/dL High 5-27 [facility] Comment on above: Performed By: #### C EWELINA CMP, , 2776-04 ####[facility] ([id number])[address], [place] [address] HGBon 03-13-2025 Hematocrit (Bld) [Volume fraction] 21.9 % Low 35-47 [facility] Comment on above: Performed By: #### H H ####[facility] ([id number])[address], [address], [place] [address] Hemoglobin (Bld) [Mass/Vol] 7.2 g/dL Low 11.7-15.5 [facility] Comment on above: Performed By: #### H H ####[facility] ([id number])[address], [address], [place] [address] Hematocrit (Bld) [Volume fraction] 23.0 % Low 35-47 [facility] Comment on above: Performed By: #### H H ####[facility] ([id number])[address], [place] [address] Hemoglobin (Bld) [Mass/Vol] 7.5 g/dL Low 11.7-15.5 [facility] Comment on above: Performed By: #### H H ####[facility] ([id number])[address] [place] [address], [place] [address] Lactate (P mikey) [Moles/Vol]o n 06-20-2024 LACTATE W/REFLEX 1.4 mmol/L Normal 0.4-2.0 [facility] Comment on above: Result Comment: Resu lt did not trigger repeat Lactate,re-order if needed. Performed By: #### 3 2132-1 ####[facility] ([id number])[address], [place] [address] MAGNESIUMon 06-20-2024 Magnesium [Mass/Vol] 2.1 mg/dL Normal 1.8-2.6 [facility] Comment on above: Performed By: #### C BCA, CMP, 15[address]-0, 2777-1 ####[facility] ([id number])[address] [address] [place] [address], [place] [address] PHOSPHORUSon 06-20-2024 Phosphate [Mass/Vol] 4.3 mg/dL Normal 2.4-4.9 [facility] Comment on above: Performed By: #### C BCA, CMP, , 2776-04 ####[facility] ([id number])[address], [place] [address] XR CHEST 1 VWon 06-20-2024 XR CHEST 1 VW Normal [facility] CBC AND AUTO DIFFon 06-20-19 25 ABSOLUTE BASOPHIL 0.1 X10E9/L Normal 0.0-0.2 [facility] Comment on above: Performed By: #### C BCA, CMP, , 2776-04 ####[facility] ([id number])[address], [address] [place] [address] ABSOLUTE NEUTROPHIL 3.5 X10E9/L Normal 1.5-6.6 [facility] Comment on above: Performed By: #### C BCA, CMP, , 2776-04 ####[facility] ([id number])[address], [address] [place] [address] Basophils/100 WBC (Bld) 1.2 % Normal [facility] Comment on above: Performed By: #### C BCA, CMP, , 2776-04 ####[facility] ([id number])[address], [address] [place] [address] Eosinophils (Bld) [#/Vol] 0.3 10*3/uL Normal 0.0-0.4 [facility] Comment on above: Performed By: #### C BCA, CMP, , 2776-04 ####[facility] ([id number])[address], [address] [place] [address] Eosinophils/100 WBC (Bld) 4.7 % Normal [facility] Comment on above: Performed By: #### C BCA, CMP, , 2776-04 ####[facility] ([id number])[address], [place] [address] Erythrocyte distribution width (RBC) [Ratio] 17.6 % High 11.5-15.0 [facility] Comment on above: Performed By: #### C EWELINA, [facility], , 2776-04 ####[facility] ([id number])[address] [address], [place] [address] Hematocrit (Bld) [Volume fraction] 22.5 % Low 35-47 [facility] Comment on above: Performed By: #### C EWELINA, [facility], , 2776-04 ####[facility] ([id number])[address] [address], [place] [address] Hemoglobin (Bld) [Mass/Vol] 7.4 g/dL Low 11.7-15.5 [facility] Comment on above: Performed By: #### C EWELINA, [facility], , 2776-04 ####[facility] ([id number])[address] [address], [place] [address] Lymphocytes (Bld) [#/Vol] 1.2 10*3/uL Normal 1.0-3.5 [facility] Comment on above: Performed By: #### C EWELINA, CMP, , 2776-04 ####[facility] ([id number])[address] [address], [place] [address] Lymphocytes/100 WBC (Bld) 21.1 % Normal [facility] Comment on above: Performed By: #### C BCA, CMP, , 2776-04 ####[facility] ([id number])[address] [address], [place] [address] MCH (RBC) [Entitic mass] 31.7 pg Normal 27-34 [facility] Comment on above: Performed By: #### C EWELINA, CMP, , 2776-04 ####[facility] ([id number])[address], [place] [address] MCHC (RBC) [Mass/Vol] 32.7 g/dL Normal 32-36 [facility] Comment on above: Performed By: #### C EWELINA, CMP, , 2776-04 ####[facility] ([id number])[address] [place] [address] MCV (RBC) [Entitic vol] 97 fL Normal 80-100 [facility] Comment on above: Performed By: #### C EWELINA, CMP, , 2776-04 ####[facility] ([id number])[address] [place] [address] Monocytes (Bld) [#/Vol] 0.8 10*3/uL Normal 0-0.9 [facility] Comment on above: Performed By: #### C EWELINA, CMP, , 2776-04 ####[facility] ([id number])[address] [place] [address] Monocytes/100 WBC (Bld) 13.6 % Normal P [facility] Comment on above: Performed By: #### C EWELINA, CMP, , 2776-04 ####[facility] ([id number])[address], [address], [place] [address] Neutrophils/100 WBC (Bld) 59.4 % Normal [facility] Comment on above: Performed By: #### C EWELINA, CMP, , 2776-04 ####[facility] ([id number])[address], [address], [place] [address] Platelet mean volume (Bld) [Entitic vol] 7.0 fL Normal 7-12 [facility] Comment on above: Performed By: #### C BCA, CMP, , 2776-1 ####[facility] ([id number])[address], [address] [place] [address] Platelets (Bld) [#/Vol] 65 10*3/uL Low 150-450 P [facility] Comment on above: Performed By: #### C BCA, CMP, , 2776-1 ####[facility] ([id number])[address], [address], [place] [address] RBC COUNT 2.32 X10E12/L Low 3.80-5.20 [facility] Comment on above: Performed By: #### C BCA, CMP, , 2776- ####[facility] ([id number])[address] [address] [place] [address] WBC (Bld) [#/Vol] 5.9 10*3/uL Normal 4.0-11.0 [facility] Comment on above: Performed By: #### C BCA, CMP, , 2776- ####[facility] ([id number])[address] [address] [place] [address] COMPREHENSIVE METABOLIC PANE Kael 06-19-2024 Albumin [Mass/Vol] 3.2 g/dL Normal 3.2-5.3 [facility] Comment on above: Performed By: #### C BCA, CMP, , 2776- ####[facility] ([id number])[address] [address] [place] [address] ALP [Catalytic activity/Vol] 65 U/L Normal 39-130 [facility] Comment on above: Performed By: #### C BCA, CMP, , 2776-1 ####[facility] ([id number])[address], [address], [place] [address] ALT [Catalytic activity/Vol] 4 U/L Normal 0-31 [facility] Comment on above: Performed By: #### C BCA, CMP, , 2776-04 ####[facility] ([id number])[address], [address], [place] [address] Anion gap [Moles/Vol] 8 mmol/L Normal 5-15 [facility] Comment on above: Performed By: #### C BCA, CMP, , 2776-04 ####[facility] ([id number])[address], [address], [place] [address] AST [Catalytic activity/Vol] 11 U/L Normal 0-41 [facility] Comment on above: Performed By: #### C BCA, CMP, , 2776-04 ####THE [facility] ([id number])[address], [place] [address] Bilirubin [Mass/Vol] 1.1 mg/dL Normal 0.3-1.2 [facility] Comment on above: Performed By: #### C BCA, CMP, , 2776-04 ####[facility] ([id number])[address], [place] [address] Calcium [Mass/Vol] 8.6 mg/dL Normal 8.5-10.5 [facility] Comment on above: Performed By: #### C BCA, CMP, , 2776-04 ####[facility] ([id number])[address], [address], [place] [address] Chloride [Moles/Vol] 107 mmol/L Normal 98-109 [facility] Comment on above: Performed By: #### C BCA, CMP, , 2776-04 ####[facility] ([id number])[address], [address], [place] [address] CO2 [Moles/Vol] 23 mmol/L Normal 22-32 [facility] Comment on above: Performed By: #### C RENA THEODORE, , 2776-04 ####[facility] ([id number])[address] [address], [place] [address] Creatinine [Mass/Vol] 0.88 mg/dL Normal 0.40-1.00 [facility] Comment on above: Result Comment: METH OD TRACEABLE TO IDMS STANDARD Performed By: #### C RENA THEODORE, , 2776-04 ####[facility] ([id number])[address] [address] GFR/1.73 sq M.predicted among non-blacks MDRD (S/P/Bld) [Vol rate/Area] 75 mL/min/{1.73_m2} Normal >59 [facility] Comment on above: Result Comment: Repo rted eGFR is based on theCKD-EPI 2020 equation that doesnot use a race coefficient. Performed By: #### C RENA THEODORE, , 2776-04 ####[facility] ([id number])[address] [address], [place] [address] Glucose [Mass/Vol] 108 mg/dL High 65-99 [facility] Comment on above: Performed By: #### C RENA THEODORE, , 2776-04 ####[facility] ([id number])[address] [address], [place] [address] Potassium [Moles/Vol] 3.4 mmol/L Low 3.5-5.0 [facility] Comment on above: Performed By: #### C RENA THEODORE, , 2776-04 ####[facility] ([id number])[address] [address] [place] [address] Protein [Mass/Vol] 5.5 g/dL Low 6.0-8.0 [facility] Comment on above: Performed By: #### C EWELINA, CMP, , 2776-04 ####[facility] ([id number])[address], [address] [place] [address] Sodium [Moles/Vol] 138 mmol/L Normal 134-146 [facility] Comment on above: Performed By: #### C EWELINA, CMP, , 2776-04 ####[facility] ([id number])[address], [address], [place] [address] Urea nitrogen [Mass/Vol] 9 mg/dL Normal 5-27 [facility] Comment on above: Performed By: #### C EWELINA, CMP, , 2776-04 ####[facility] ([id number])[address], [address] [place] [address] MAGNESIUMon 06-19-2024 Magnesium [Mass/Vol] 1.8 mg/dL Normal 1.8-2.6 [facility] Comment on above: Performed By: #### C EWELINA CMP, , 2776-04 ####[facility] ([id number])[address], [address], [place] [address] Magnesium Ionized ISE (Bld) [Moles/Vol]on 06-19-2024 Magnesium [Moles/Vol] 0.62 mmol/L Normal 0.45-0.74 [facility] Comment on above: Result Comment: NEW REFERENCE RANGE Performed By: #### 7 3572-0 ####[facility] ([id number])[address], [address] [place] [address] PHOSPHORUSon 06-19-2024 Phosphate [Mass/Vol] 4.2 mg/dL Normal 2.4-4.9 [facility] Comment on above: Performed By: #### 2 823-3, 2771 ####[facility] ([id number])[address], [place] [address] Phosphate [Mass/Vol] 2.1 mg/dL Low 2.4-4.9 [facility] Comment on above: Performed By: #### C BCA, CMP, , 2776-04 ####[facility] ([id number])[address] [place] [address] POTASSIUMon 06-19-2024 Potassium [Moles/Vol] 4.1 mmol/L Normal 3.5-5.0 [facility] Comment on above: Performed By: #### 2 823-3, 2776-04 ####[facility] ([id number])[address], [place] [address] XR CHEST 1 VWon 06-19-2024 XR CHEST 1 VW Normal [facility] CBC AND AUTO DIFFon 06-19-19 25 ABSOLUTE BASOPHIL 0.1 X10E9/L Normal 0.0-0.2 [facility] Comment on above: Performed By: #### C BCA, CMP, LIVR, , 2776-04 ####[facility] ([id number])[address] [address], [place] [address] ABSOLUTE NEUTROPHIL 3.6 X10E9/L Normal 1.5-6.6 [facility] Comment on above: Performed By: #### C BCA, CMP, LIVR, , 2776-04 ####[facility] ([id number])[address] [address], [place] [address] Basophils/100 WBC (Bld) 1.5 % Normal [facility] Comment on above: Performed By: #### C BCA, CMP, LIVR, , 2776-04 ####[facility] ([id number])[address], [address] [place] [address] Eosinophils (Bld) [#/Vol] 0.2 10*3/uL Normal 0.0-0.4 [facility] Comment on above: Performed By: #### C BCA, CMP, LIVR, , 2776-04 ####[facility] ([id number])[address] [address] Eosinophils/100 WBC (Bld) 3.9 % Normal [facility] Comment on above: Performed By: #### C BCA, CMP, LIVR, , 2776-04 ####[facility] ([id number])[address] [address] Erythrocyte distribution width (RBC) [Ratio] 17.2 % High 11.5-15.0 [facility] Comment on above: Performed By: #### C BCA, CMP, LIVR, , 2776-04 ####[facility] ([id number])[address] [address] Hematocrit (Bld) [Volume fraction] 24.3 % Low 35-47 [facility] Comment on above: Performed By: #### C BCA, CMP, LIVR, , 2776-04 ####[facility] ([id number])[address] [address] Hemoglobin (Bld) [Mass/Vol] 8.1 g/dL Low 11.7-15.5 [facility] Comment on above: Performed By: #### C BCA, CMP, LIVR, , 2776-04 ####[facility] ([id number])[address] [address] Lymphocytes (Bld) [#/Vol] 1.2 10*3/uL Normal 1.0-3.5 [facility] Comment on above: Performed By: #### C BCA, CMP, LIVR, , 2776-04 ####[facility] ([id number])[address] [address] [place] [address] Lymphocytes/100 WBC (Bld) 20.1 % Normal [facility] Comment on above: Performed By: #### C BCA, CMP, LIVR, , 2776-04 ####[facility] ([id number])[address] [address] [place] [address] MCH (RBC) [Entitic mass] 32.1 pg Normal 27-34 [facility] Comment on above: Performed By: #### C BCA, CMP, LIVR, , 2776-04 ####[facility] ([id number])[address] [address] [place] [address] MCHC (RBC) [Mass/Vol] 33.2 g/dL Normal 32-36 [facility] Comment on above: Performed By: #### C BCA, CMP, LIVR, , 2776-04 ####[facility] ([id number])[address] [address] MCV (RBC) [Entitic vol] 97 fL Normal 80-100 [facility] Comment on above: Performed By: #### C BCA, CMP, LIVR, , 2776-04 ####[facility] ([id number])[address] [address] Monocytes (Bld) [#/Vol] 0.8 10*3/uL Normal 0-0.9 [facility] Comment on above: Performed By: #### C BCA, CMP, LIVR, , 2776-04 ####[facility] ([id number])[address] [address] [place] [address] Monocytes/100 WBC (Bld) 13.1 % Normal [facility] Comment on above: Performed By: #### C BCA, CMP, LIVR, , 2776-04 ####[facility] ([id number])[address] [address] [place] [address] Neutrophils/100 WBC (Bld) 61.4 % Normal [facility] Comment on above: Performed By: #### C BCA, CMP, LIVR, , 2776-04 ####[facility] ([id number])[address], [address] [place] [address] Platelet mean volume (Bld) [Entitic vol] 6.6 fL Low 7-12 [facility] Comment on above: Performed By: #### C BCA, CMP, LIVR, , 2776-04 ####[facility] ([id number])[address] [address], [place] [address] Platelets (Bld) [#/Vol] 77 10*3/uL Low 150-450 [facility] Comment on above: Performed By: #### C BCA, CMP, LIVR, , 2776-04 ####[facility] ([id number])[address] [address] [place] [address] RBC COUNT 2.52 X10E12/L Low 3.80-5.20 [facility] Comment on above: Performed By: #### C BCA, CMP, LIVR, , 2776-04 ####[facility] ([id number])[address] [address] WBC (Bld) [#/Vol] 5.8 10*3/uL Normal 4.0-11.0 [facility] Comment on above: Performed By: #### C BCA, CMP, LIVR, , 2776-04 ####[facility] ([id number])[address], [address], [place] [address] COMPREHENSIVE METABOLIC PANE Kael 03-11-2025 Albumin [Mass/Vol] 2.8 g/dL Low 3.2-5.3 [facility] Comment on above: Performed By: #### C BCA, CMP, LIVR, , 2776-04 ####[facility] ([id number])[address], [address], [place] [address] ALP [Catalytic activity/Vol] 78 U/L Normal 39-130 [facility] Comment on above: Performed By: #### C BCA, CMP, LIVR, , 2776- ####[facility] ([id number])[address], [address], [place] [address] ALT [Catalytic activity/Vol] 3 U/L Normal 0-31 [facility] Comment on above: Performed By: #### C BCA, CMP, LIVR, , 2776-04 ####[facility] ([id number])[address], [address], [place] [address] Anion gap [Moles/Vol] 7 mmol/L Normal 5-15 [facility] Comment on above: Performed By: #### C BCA, CMP, LIVR, , 2776-04 ####[facility] ([id number])[address], [place] [address] AST [Catalytic activity/Vol] 15 U/L Normal 0-41 [facility] Comment on above: Performed By: #### C BCA, CMP, LIVR, , 2776-04 ####[facility] ([id number])[address], [address], [place] [address] Bilirubin [Mass/Vol] 1.2 mg/dL Normal 0.3-1.2 [facility] Comment on above: Performed By: #### C BCA, CMP, LIVR, , 2776-04 ####[facility] ([id number])[address] [address], [place] [address] Calcium [Mass/Vol] 8.6 mg/dL Normal 8.5-10.5 [facility] Comment on above: Performed By: #### C BCA, CMP, LIVR, , 2776-04 ####[facility] ([id number])[address] [address], [place] [address] Chloride [Moles/Vol] 106 mmol/L Normal 98-109 [facility] Comment on above: Performed By: #### C BCA, CMP, LIVR, , 2776-04 ####[facility] ([id number])[address] [address], [place] [address] CO2 [Moles/Vol] 26 mmol/L Normal 22-32 [facility] Comment on above: Performed By: #### C BCA, CMP, LIVR, , 2776-04 ####[facility] ([id number])[address] [address], [place] [address] Creatinine [Mass/Vol] 0.72 mg/dL Normal 0.40-1.00 [facility] Comment on above: Result Comment: METH OD TRACEABLE TO IDMS STANDARD Performed By: #### C BCA, CMP, LIVR, , 2776-04 ####[facility] ([id number])[address] [address] [address] eGFR (CKD-EPI) NON-RACE DEPENDENT >90 Normal >59 [facility] Comment on above: Result Comment: Repo rted eGFR is based on theCKD-EPI 2020 equation that doesnot use a race coefficient. Performed By: #### C BCA, CMP, LIVR, , 2776-04 ####[facility] ([id number])[address] [address], [place] [address] Glucose [Mass/Vol] 95 mg/dL Normal 65-99 [facility] Comment on above: Performed By: #### C BCA, CMP, LIVR, , 2776-04 ####[facility] ([id number])[address] [place] [address] Potassium [Moles/Vol] 3.9 mmol/L Normal 3.5-5.0 [facility] Comment on above: Performed By: #### C BCA, CMP, LIVR, , 2776-04 ####[facility] ([id number])[address] [place] [address] Protein [Mass/Vol] 5.5 g/dL Low 6.0-8.0 [facility] Comment on above: Performed By: #### C BCA, CMP, LIVR, , 2776-04 ####[facility] ([id number])[address], [address], [place] [address] Sodium [Moles/Vol] 139 mmol/L Normal 134-146 [facility] Comment on above: Performed By: #### C BCA, CMP, LIVR, , 2776-04 ####[facility] ([id number])[address], [place] [address] Urea nitrogen [Mass/Vol] 8 mg/dL Normal 5-27 [facility] Comment on above: Performed By: #### C BCA, CMP, LIVR, , 2776-04 ####[facility] ([id number])[address] [place] [address] LIVER PANELon 06-18-2024 Bilirubin.direct [Mass/Vol] 0.7 mg/dL High 0.0-0.4 [facility] Comment on above: Performed By: #### C BCA, CMP, LIVR, , 2776-04 ####[facility] ([id number])[address], [place] [address] MAGNESIUMon 06-18-2024 Magnesium [Mass/Vol] 1.9 mg/dL Normal 1.8-2.6 [facility] Comment on above: Performed By: #### C BCA, CMP, LIVR, 68224-9, 2777-1 ####[facility] ([id number])[address], [address], [place] [address] PHOSPHORUSon 06-18-2024 Phosphate [Mass/Vol] 3.1 mg/dL Normal 2.4-4.9 [facility] Comment on above: Performed By: #### C BCA, CMP, LIVR, , 2777-1 ####[facility] ([id number])[address] [address], [place] [address] PROTIME AND INRon 06-18-2024 INR Coag (PPP) [Relative time] 1.1 {INR} Normal 0.9-1.2 [facility] Comment on above: Performed By: #### P INR, 96500-0 ####[facility] ([id number])[address] [address], [place] [address] PT Coag (PPP) [Time] 13.0 s Normal 9.8-13.2 [facility] Comment on above: Performed By: #### P INR, 38508-3 ####[facility] ([id number])[address], [place] [address] XR CHEST 1 VWon 06-18-2024 XR CHEST 1 VW Normal [facility] aPTT Coag (PPP) [Time]on aPTT Coag (Bld) [Time] 31 s Normal 26-37 [facility] Comment on above: Performed By: #### P INR, 03426-0 ####[facility] ([id number])[address] [address] CBC AND AUTO DIFFon 06-18-19 25 ABSOLUTE BASOPHIL 0.1 X10E9/L Normal 0.0-0.2 [facility] Comment on above: Performed By: #### C BCA, CMP, LIVR, , 2776-04 ####[facility] ([id number])[address] [address] [place] [address] ABSOLUTE NEUTROPHIL 3.2 X10E9/L Normal 1.5-6.6 [facility] Comment on above: Performed By: #### C BCA, CMP, LIVR, , 2776-04 ####[facility] ([id number])[address] [address] Basophils/100 WBC (Bld) 1.4 % Normal [facility] Comment on above: Performed By: #### C BCA, CMP, LIVR, , 2776-04 ####[facility] ([id number])[address] [address] Eosinophils (Bld) [#/Vol] 0.1 10*3/uL Normal 0.0-0.4 [facility] Comment on above: Performed By: #### C BCA, CMP, LIVR, , 2776-04 ####[facility] ([id number])[address] [address] Eosinophils/100 WBC (Bld) 2.4 % Normal [facility] Comment on above: Performed By: #### C BCA, CMP, LIVR, , 2776-04 ####[facility] ([id number])[address] [address] Erythrocyte distribution width (RBC) [Ratio] 17.5 % High 11.5-15.0 [facility] Comment on above: Performed By: #### C BCA, CMP, LIVR, , 2776-04 ####[facility] ([id number])[address] [address], [place] [address] Hematocrit (Bld) [Volume fraction] 24.5 % Low 35-47 [facility] Comment on above: Performed By: #### C BCA, CMP, LIVR, , 2776-04 ####[facility] ([id number])[address] [address] [place] [address] Hemoglobin (Bld) [Mass/Vol] 8.3 g/dL Low 11.7-15.5 [facility] Comment on above: Performed By: #### C BCA, CMP, LIVR, , 2776-04 ####[facility] ([id number])[address] [address] [place] [address] Lymphocytes (Bld) [#/Vol] 0.9 10*3/uL Low 1.0-3.5 [facility] Comment on above: Performed By: #### C BCA, CMP, LIVR, , 2776-04 ####[facility] ([id number])[address] [address] Lymphocytes/100 WBC (Bld) 19.3 % Normal [facility] Comment on above: Performed By: #### C BCA, CMP, LIVR, , 2776-04 ####[facility] ([id number])[address] [address] [place] [address] MCH (RBC) [Entitic mass] 32.3 pg Normal 27-34 [facility] Comment on above: Performed By: #### C BCA, CMP, LIVR, , 2776-04 ####[facility] ([id number])[address] [address] [place] [address] MCHC (RBC) [Mass/Vol] 33.8 g/dL Normal 32-36 [facility] Comment on above: Performed By: #### C BCA, CMP, LIVR, , 2776-04 ####[facility] ([id number])[address] [place] [address] MCV (RBC) [Entitic vol] 96 fL Normal 80-100 [facility] Comment on above: Performed By: #### C BCA, CMP, LIVR, , 2776-04 ####[facility] ([id number])[address], [place] [address] Monocytes (Bld) [#/Vol] 0.5 10*3/uL Normal 0-0.9 [facility] Comment on above: Performed By: #### C BCA, CMP, LIVR, , 2776-04 ####[facility] ([id number])[address] [address], [place] [address] Monocytes/100 WBC (Bld) 10.6 % Normal [facility] Comment on above: Performed By: #### C BCA, CMP, LIVR, , 2776-04 ####[facility] ([id number])[address] [address], [place] [address] Neutrophils/100 WBC (Bld) 66.3 % Normal [facility] Comment on above: Performed By: #### C BCA, CMP, LIVR, , 2776-04 ####[facility] ([id number])[address] [place] [address] Platelet mean volume (Bld) [Entitic vol] 6.8 fL Low 7-12 [facility] Comment on above: Performed By: #### C BCA, CMP, LIVR, , 2776-04 ####[facility] ([id number])[address], [address] [place] [address] Platelets (Bld) [#/Vol] 87 10*3/uL Low 150-450 P [facility] Comment on above: Performed By: #### C BCA, CMP, LIVR, , 2776-04 ####[facility] ([id number])[address], [address] [place] [address] RBC COUNT 2.56 X10E12/L Low 3.80-5.20 [facility] Comment on above: Performed By: #### C BCA, CMP, LIVR, , 2776-04 ####[facility] ([id number])[address], [address] [place] [address] WBC (Bld) [#/Vol] 4.8 10*3/uL Normal 4.0-11.0 [facility] Comment on above: Performed By: #### C BCA, CMP, LIVR, , 2776-04 ####[facility] ([id number])[address], [address] [place] [address] COMPREHENSIVE METABOLIC PANE Kael 06-17-2024 Albumin [Mass/Vol] 2.8 g/dL Low 3.2-5.3 [facility] Comment on above: Performed By: #### C BCA, CMP, LIVR, , 2776-04 ####[facility] ([id number])[address], [address] [place] [address] ALP [Catalytic activity/Vol] 76 U/L Normal 39-130 [facility] Comment on above: Performed By: #### C BCA, CMP, LIVR, , 2776-04 ####[facility] ([id number])[address], [address] [place] [address] ALT [Catalytic activity/Vol] 4 U/L Normal 0-31 [facility] Comment on above: Performed By: #### C BCA, CMP, LIVR, , 2776-04 ####[facility] ([id number])[address], [place] [address] Anion gap [Moles/Vol] 9 mmol/L Normal 5-15 [facility] Comment on above: Performed By: #### C BCA, CMP, LIVR, , 2776-04 ####[facility] ([id number])[address], [place] [address] Performed By: #### E LEC, ####[facility] ([id number])[address], [place] [address] AST [Catalytic activity/Vol] 15 U/L Normal 0-41 [facility] Comment on above: Performed By: #### C BCA, CMP, LIVR, , 2776-04 ####[facility] ([id number])[address], [place] [address] Bilirubin [Mass/Vol] 1.5 mg/dL High 0.3-1.2 [facility] Comment on above: Performed By: #### C BCA, CMP, LIVR, , 2776-04 ####[facility] ([id number])[address] [address], [place] [address] Calcium [Mass/Vol] 8.5 mg/dL Normal 8.5-10.5 [facility] Comment on above: Performed By: #### C BCA, CMP, LIVR, , 2776-04 ####[facility] ([id number])[address], [place] [address] CO2 [Moles/Vol] 26 mmol/L Normal 22-32 [facility] Comment on above: Performed By: #### C BCA, CMP, LIVR, , 2776-04 ####[facility] ([id number])[address], [address], [place] [address] Creatinine [Mass/Vol] 0.90 mg/dL Normal 0.40-1.00 [facility] Comment on above: Result Comment: METH OD TRACEABLE TO IDMS STANDARD Performed By: #### C BCA, CMP, LIVR, , 2776-04 ####[facility] ([id number])[address], [place] [address] GFR/1.73 sq M.predicted among non-blacks MDRD (S/P/Bld) [Vol rate/Area] 73 mL/min/{1.73_m2} Normal >59 [facility] Comment on above: Result Comment: Repo rted eGFR is based on theCKD-EPI 2020 equation that doesnot use a race coefficient. Performed By: #### C BCA, CMP, LIVR, , 2776-04 ####[facility] ([id number])[address], [place] [address] Glucose [Mass/Vol] 79 mg/dL Normal 65-99 [facility] Comment on above: Performed By: #### C BCA, CMP, LIVR, , 2776-04 ####[facility] ([id number])[address], [place] [address] Potassium [Moles/Vol] 4.0 mmol/L Normal 3.5-5.0 [facility] Comment on above: Performed By: #### C BCA, CMP, LIVR, , 2776-04 ####[facility] ([id number])[address] [place] [address] Protein [Mass/Vol] 5.0 g/dL Low 6.0-8.0 [facility] Comment on above: Performed By: #### C BCA, CMP, LIVR, , 2776-04 ####[facility] ([id number])[address] [place] [address] Urea nitrogen [Mass/Vol] 7 mg/dL Normal 5-27 [facility] Comment on above: Performed By: #### C BCA, CMP, LIVR, , 1 ####[facility] ([id number])[address], [address] [place] [address] Chloride [Moles/Vol] 105 mmol/L Normal 98-109 [facility] Comment on above: Performed By: #### C BCA, CMP, LIVR, , 2776-04 ####[facility] ([id number])[address], [address] [place] [address] Performed By: #### E LEC, ####[facility] ([id number])[address] [place] [address] Sodium [Moles/Vol] 140 mmol/L Normal 134-146 [facility] Comment on above: Performed By: #### C BCA, CMP, LIVR, , 27710-08 ####[facility] ([id number])[address], [address] [place] [address] Performed By: #### E LEC, ####[facility] ([id number])[address] [place] [address] Calcium.ionized (Bld) [Mass/ Vol]on 06-17-2024 IONIZED CALCIUM 4.9 mg/dL Normal 4.5-5.3 [facility] Comment on above: Performed By: #### 3 8230-9, 41898-7 ####[facility] ([id number])[address] [place] [address] ELECTROLYTESon 06-17-2024 Anion gap [Moles/Vol] 10 mmol/L Normal 5-15 [facility] Comment on above: Performed By: #### E LEC, , 2776-04 ####[facility] ([id number])[address], [address], [place] [address] Chloride [Moles/Vol] 106 mmol/L Normal 98-109 [facility] Comment on above: Performed By: #### E LEC, , 2776-04 ####[facility] ([id number])[address], [address], [place] [address] CO2 [Moles/Vol] 25 mmol/L Normal 22-32 [facility] Comment on above: Performed By: #### E LEC, , 2776-04 ####[facility] ([id number])[address], [address], [place] [address] Potassium [Moles/Vol] 4.1 mmol/L Normal 3.5-5.0 [facility] Comment on above: Performed By: #### E LEC, , 2776-04 ####[facility] ([id number])[address], [address], [place] [address] Performed By: #### E LEC, ####[facility] ([id number])[address], [address], [place] [address] Sodium [Moles/Vol] 141 mmol/L Normal 134-146 [facility] Comment on above: Performed By: #### E LEC, , 2776-04 ####[facility] ([id number])[address], [place] [address] Anion gap [Moles/Vol] 10 mmol/L Normal 5-15 [facility] Comment on above: Performed By: #### E LEC, ####[facility] ([id number])[address], [address], [place] [address] CO2 [Moles/Vol] 25 mmol/L Normal 22-32 [facility] Comment on above: Performed By: #### E LEC, ####[facility] ([id number])[address], [address], [place] [address] Potassium [Moles/Vol] 4.2 mmol/L Normal 3.5-5.0 [facility] Comment on above: Performed By: #### E LEC, ####[facility] ([id number])[address], [address], [place] [address] Chloride [Moles/Vol] 104 mmol/L Normal 98-109 [facility] Comment on above: Performed By: #### E LEC, ####[facility] ([id number])[address], [address], [place] [address] CO2 [Moles/Vol] 27 mmol/L Normal 22-32 [facility] Comment on above: Performed By: #### E LEC, ####[facility] ([id number])[address], [address], [place] [address] Anion gap [Moles/Vol] 10 mmol/L Normal 5-15 [facility] Comment on above: Performed By: #### E LEC, ####[facility] ([id number])[address], [address], [place] [address] Chloride [Moles/Vol] 105 mmol/L Normal 98-109 [facility] Comment on above: Performed By: #### E LEC, ####[facility] ([id number])[address], [address], [place] [address] CO2 [Moles/Vol] 25 mmol/L Normal 22-32 [facility] Comment on above: Performed By: #### E LEC, ####[facility] ([id number])[address], [address] [place] [address] Potassium [Moles/Vol] 3.9 mmol/L Normal 3.5-5.0 [facility] Comment on above: Performed By: #### E LEC, ####[facility] ([id number])[address], [address] [place] [address] Sodium [Moles/Vol] 140 mmol/L Normal 134-146 [facility] Comment on above: Performed By: #### E LEC, ####[facility] ([id number])[address], [address], [place] [address] LIVER PANELon 06-17-2024 Bilirubin.direct [Mass/Vol] 0.7 mg/dL High 0.0-0.4 [facility] Comment on above: Performed By: #### C BCA, CMP, LIVR, , 2776-04 ####[facility] ([id number])[address] [address] [place] [address] MAGNESIUMon 06-17-2024 Magnesium [Mass/Vol] 2.3 mg/dL Normal 1.8-2.6 [facility] Comment on above: Performed By: #### E LEC, , 2776-04 ####[facility] ([id number])[address] [address], [place] [address] Magnesium [Mass/Vol] 2.0 mg/dL Normal 1.8-2.6 [facility] Comment on above: Performed By: #### C BCA, CMP, LIVR, , 2776-04 ####[facility] ([id number])[address], [address], [place] [address] Performed By: #### E LEC, ####[facility] ([id number])[address], [address], [place] [address] Magnesium [Mass/Vol] 1.8 mg/dL Normal 1.8-2.6 [facility] Comment on above: Performed By: #### E LEC, ####[facility] ([id number])[address], [address], [place] [address] Magnesium [Mass/Vol] 2.1 mg/dL Normal 1.8-2.6 [facility] Comment on above: Performed By: #### E LEC, ####[facility] ([id number])[address], [address], [place] [address] Performed By: #### C BCA, CMP, LIVR, , 1 ####[facility] ([id number])[address], [address], [place] [address] Magnesium Ionized ISE (Bld) [Moles/Vol]on 06-17-2024 Magnesium [Moles/Vol] 0.63 mmol/L Normal 0.45-0.74 [facility] Comment on above: Result Comment: NEW REFERENCE RANGE Performed By: #### 3 8230-9, 76687-1 ####[facility] ([id number])[address], [address], [place] [address] PHOSPHORUSon 06-17-2024 Phosphate [Mass/Vol] 2.1 mg/dL Low 2.4-4.9 [facility] Comment on above: Performed By: #### E LEC, , 2776-04 ####[facility] ([id number])[address] [address], [place] [address] Phosphate [Mass/Vol] 2.8 mg/dL Normal 2.4-4.9 [facility] Comment on above: Performed By: #### C BCA, CMP, LIVR, , 2776-04 ####[facility] ([id number])[address], [address], [place] [address] PROTIME AND INRon 06-17-2024 INR Coag (PPP) [Relative time] 1.2 {INR} Normal 0.9-1.2 [facility] Comment on above: Performed By: #### P INR, 57292-1 ####[facility] ([id number])[address], [address], [place] [address] PT Coag (PPP) [Time] 13.3 s High 9.8-13.2 [facility] Comment on above: Performed By: #### P INR, 61107-7 ####[facility] ([id number])[address], [address], [place] [address] INR Coag (PPP) [Relative time] 1.2 {INR} Normal 0.9-1.2 [facility] Comment on above: Performed By: #### P INR, 77413-9 ####[facility] ([id number])[address], [address], [place] [address] PT Coag (PPP) [Time] 13.9 s High 9.8-13.2 [facility] Comment on above: Performed By: #### P INR, 10648-9 ####[facility] ([id number])[address], [address], [place] [address] Vancomycin [Mass/Vol]on 06-08 VANCOMYCIN 15.8 ug/mL Normal 5.0-40.0 [facility] Comment on above: Result Comment: Peak 30-40 ug/mLTrough 5-20 ug/ml Performed By: #### 2 0578-1 ####[facility] ([id number])[address], [address], [place] [address] XR ABD NG TUBE PLACEMENT 1 V IEWon 06-17-2024 XR ABD NG TUBE PLACEMENT 1 VIEW Normal [facility] XR CHEST 1 VWon 06-17-2024 XR CHEST 1 VW Normal [facility] aPTT Coag (PPP) [Time]on aPTT Coag (Bld) [Time] 31 s Normal 26-37 [facility] Comment on above: Performed By: #### P INR, 61444-4 ####[facility] ([id number])[address], [address], [place] [address] aPTT Coag (Bld) [Time] 33 s Normal 26-37 [facility] Comment on above: Performed By: #### P INR, 22948-4 ####[facility] ([id number])[address], [address] [place] [address] ARTERIAL BLOOD GASon 025 ROBERT'S TEST Normal [facility] Comment on above: Performed By: #### A BG ####[facility] ([id number])[address] [place] [address] Base excess Calc (Bld) [Moles/Vol] 0.0 mmol/L Normal 0.0-2.0 [facility] Comment on above: Performed By: #### A BG ####[facility] ([id number])[address] [place] [address] Body temperature 98.6 [degF] Normal 37.0 [facility] Comment on above: Performed By: #### A BG ####[facility] ([id number])[address] [place] [address] HCO3 (Bld) [Moles/Vol] 23.5 mmol/L Normal 22-26 [facility] Comment on above: Performed By: #### A BG ####[facility] ([id number])[address] [place] [address] INSP. O2 CONC. 40 % Normal [facility] Comment on above: Performed By: #### A BG ####[facility] ([id number])[address] [facility] [place] [address] Oxygen (Bld) [Partial pressure] 66 mm[Hg] Low 80-100 [facility] Comment on above: Performed By: #### A BG ####[facility] ([id number])[address] [place] [address] Oxygen saturation in Blood 94.0 % Normal >90 [facility] Comment on above: Performed By: #### A BG ####[facility] ([id number])[address] [place] [address] OXYGEN SOURCE Vent Normal [facility] Comment on above: Performed By: #### A BG ####[facility] ([id number])[address] [place] [address] PCO2 34.6 MMHG Low 35-45 [facility] Comment on above: Performed By: #### A BG ####[facility] ([id number])[address] [place] [address] pH (Bld) 7.440 [pH] Normal 7.350-7.45 0 [facility] Comment on above: Performed By: #### A BG ####[facility] ([id number])[address] [place] [address] SAMPLE SITE Breanne [facility] Comment on above: Performed By: #### A BG ####[facility] ([id number])[address] [facility] [place] [address] SAMPLE TYPE ARTERIAL Normal [facility] Comment on above: Performed By: #### A BG ####[facility] ([id number])[address] [place] [address] CBC AND AUTO DIFFon 06-17-19 25 ABSOLUTE BASOPHIL 0.1 X10E9/L Normal 0.0-0.2 [facility] Comment on above: Performed By: #### C BCA, CMP, LIVR, , 2776-04 ####[facility] ([id number])[address], [address], [place] [address] ABSOLUTE NEUTROPHIL 2.4 X10E9/L Normal 1.5-6.6 [facility] Comment on above: Performed By: #### C BCA, CMP, LIVR, , 2776-04 ####[facility] ([id number])[address] [address] Basophils/100 WBC (Bld) 1.2 % Normal [facility] Comment on above: Performed By: #### C BCA, CMP, LIVR, , 2776-04 ####[facility] ([id number])[address] [address], [place] [address] Eosinophils (Bld) [#/Vol] 0.1 10*3/uL Normal 0.0-0.4 [facility] Comment on above: Performed By: #### C BCA, CMP, LIVR, , 2776-04 ####[facility] ([id number])[address] [address] Eosinophils/100 WBC (Bld) 2.7 % Normal [facility] Comment on above: Performed By: #### C BCA, CMP, LIVR, , 2776-04 ####[facility] ([id number])[address] [address] Erythrocyte distribution width (RBC) [Ratio] 17.3 % High 11.5-15.0 [facility] Comment on above: Performed By: #### C BCA, CMP, LIVR, , 2776-04 ####[facility] ([id number])[address], [address], [place] [address] Hematocrit (Bld) [Volume fraction] 23.9 % Low 35-47 [facility] Comment on above: Performed By: #### C BCA, CMP, LIVR, , 2776-04 ####[facility] ([id number])[address], [address], [place] [address] Hemoglobin (Bld) [Mass/Vol] 8.1 g/dL Low 11.7-15.5 [facility] Comment on above: Performed By: #### C BCA, CMP, LIVR, , 2776-04 ####[facility] ([id number])[address] [address] [place] [address] Lymphocytes (Bld) [#/Vol] 1.0 10*3/uL Normal 1.0-3.5 [facility] Comment on above: Performed By: #### C BCA, CMP, LIVR, , 2776-04 ####[facility] ([id number])[address] [address] [place] [address] Lymphocytes/100 WBC (Bld) 23.8 % Normal [facility] Comment on above: Performed By: #### C BCA, CMP, LIVR, , 2776-04 ####[facility] ([id number])[address] [address] [place] [address] MCH (RBC) [Entitic mass] 32.0 pg Normal 27-34 [facility] Comment on above: Performed By: #### C BCA, CMP, LIVR, , 2776-04 ####[facility] ([id number])[address] [address], [place] [address] MCHC (RBC) [Mass/Vol] 33.9 g/dL Normal 32-36 [facility] Comment on above: Performed By: #### C BCA, CMP, LIVR, , 2776-04 ####[facility] ([id number])[address], [address] [place] [address] MCV (RBC) [Entitic vol] 94 fL Normal 80-100 P [facility] Comment on above: Performed By: #### C BCA, CMP, LIVR, , 2776-04 ####[facility] ([id number])[address], [address] [place] [address] Monocytes (Bld) [#/Vol] 0.6 10*3/uL Normal 0-0.9 [facility] Comment on above: Performed By: #### C BCA, CMP, LIVR, , 2776-04 ####[facility] ([id number])[address], [address], [place] [address] Monocytes/100 WBC (Bld) 13.8 % Normal [facility] Comment on above: Performed By: #### C BCA, CMP, LIVR, , 2776-04 ####[facility] ([id number])[address] [address], [place] [address] Neutrophils/100 WBC (Bld) 58.5 % Normal [facility] Comment on above: Performed By: #### C BCA, CMP, LIVR, , 2776-04 ####[facility] ([id number])[address] [place] [address] Platelet mean volume (Bld) [Entitic vol] 7.3 fL Normal 7-12 [facility] Comment on above: Performed By: #### C BCA, CMP, LIVR, , 2776-04 ####[facility] ([id number])[address], [address], [place] [address] Platelets (Bld) [#/Vol] 99 10*3/uL Low 150-450 [facility] Comment on above: Performed By: #### C BCA, CMP, LIVR, , 2776-04 ####[facility] ([id number])[address], [address] [place] [address] RBC COUNT 2.53 X10E12/L Low 3.80-5.20 [facility] Comment on above: Performed By: #### C BCA, CMP, LIVR, , 2776-04 ####[facility] ([id number])[address], [address] [address] WBC (Bld) [#/Vol] 4.2 10*3/uL Normal 4.0-11.0 [facility] Comment on above: Performed By: #### C BCA, CMP, LIVR, , 2776-04 ####[facility] ([id number])[address], [address] [place] [address] COMPREHENSIVE METABOLIC PANE Kael 06-16-2024 ALP [Catalytic activity/Vol] 74 U/L Normal 39-130 [facility] Comment on above: Performed By: #### C BCA, CMP, LIVR, , 2776-04 ####[facility] ([id number])[address], [address] [place] [address] Anion gap [Moles/Vol] 11 mmol/L Normal 5-15 [facility] Comment on above: Performed By: #### C BCA, CMP, LIVR, , 2776-04 ####[facility] ([id number])[address], [address] [place] [address] AST [Catalytic activity/Vol] 14 U/L Normal 0-41 [facility] Comment on above: Performed By: #### C BCA, CMP, LIVR, , 2776-04 ####[facility] ([id number])[address] [address], [place] [address] Calcium [Mass/Vol] 8.6 mg/dL Normal 8.5-10.5 [facility] Comment on above: Performed By: #### C BCA, CMP, LIVR, , 2776-04 ####[facility] ([id number])[address] [address] Chloride [Moles/Vol] 103 mmol/L Normal 98-109 [facility] Comment on above: Performed By: #### C BCA, CMP, LIVR, , 2776-04 ####[facility] ([id number])[address] [address] CO2 [Moles/Vol] 24 mmol/L Normal 22-32 [facility] Comment on above: Performed By: #### C BCA, CMP, LIVR, , 2776-04 ####[facility] ([id number])[address] [address] Creatinine [Mass/Vol] 1.31 mg/dL High 0.40-1.00 [facility] Comment on above: Result Comment: METH OD TRACEABLE TO IDMS STANDARD Performed By: #### C BCA, CMP, LIVR, , 2776-04 ####[facility] ([id number])[address] [address] GFR/1.73 sq M.predicted among non-blacks MDRD (S/P/Bld) [Vol rate/Area] 46 mL/min/{1.73_m2} Low >59 [facility] Comment on above: Result Comment: Repo rted eGFR is based on theCKD-EPI 2020 equation that doesnot use a race coefficient. Performed By: #### C BCA, CMP, LIVR, , 2776-04 ####[facility] ([id number])[address], [address], [place] [address] Glucose [Mass/Vol] 87 mg/dL Normal 65-99 [facility] Comment on above: Performed By: #### C BCA, CMP, LIVR, , 2776-04 ####[facility] ([id number])[address], [address], [place] [address] Protein [Mass/Vol] 5.1 g/dL Low 6.0-8.0 [facility] Comment on above: Performed By: #### C BCA, CMP, LIVR, , 2776-04 ####[facility] ([id number])[address] [address], [place] [address] Urea nitrogen [Mass/Vol] 14 mg/dL Normal 5-27 [facility] Comment on above: Performed By: #### C BCA, CMP, LIVR, , 2776-04 ####[facility] ([id number])[address], [address], [place] [address] Albumin [Mass/Vol] 2.9 g/dL Low 3.2-5.3 [facility] Comment on above: Performed By: #### C BCA, CMP, LIVR, , 2776-04 ####[facility] ([id number])[address] [address], [place] [address] Performed By: #### L IVR ####[facility] ([id number])[address], [place] [address] ALT [Catalytic activity/Vol] 4 U/L Normal 0-31 [facility] Comment on above: Performed By: #### C BCA, CMP, LIVR, , 2776-04 ####[facility] ([id number])[address], [place] [address] Performed By: #### L IVR ####[facility] ([id number])[address], [place] [address] Bilirubin [Mass/Vol] 1.4 mg/dL High 0.3-1.2 [facility] Comment on above: Performed By: #### C BCA, CMP, LIVR, , 2776-04 ####[facility] ([id number])[address], [place] [address] Performed By: #### L IVR ####[facility] ([id number])[address], [place] [address] ELECTROLYTESon 06-16-2024 Anion gap [Moles/Vol] 8 mmol/L Normal 5-15 [facility] Comment on above: Performed By: #### E LEC, , 2776-04 ####[facility] ([id number])[address], [place] [address] Chloride [Moles/Vol] 105 mmol/L Normal 98-109 [facility] Comment on above: Performed By: #### E LEC, , 2776-04 ####[facility] ([id number])[address], [place] [address] CO2 [Moles/Vol] 25 mmol/L Normal 22-32 [facility] Comment on above: Performed By: #### E LEC, , 2776-04 ####[facility] ([id number])[address], [place] [address] Potassium [Moles/Vol] 3.9 mmol/L Normal 3.5-5.0 [facility] Comment on above: Performed By: #### E LEC, , 2776-04 ####[facility] ([id number])[address], [place] [address] Performed By: #### C BCA, CMP, LIVR, , 2776-04 ####[facility] ([id number])[address], [place] [address] Sodium [Moles/Vol] 138 mmol/L Normal 134-146 [facility] Comment on above: Performed By: #### E LEC, , 2776-04 ####[facility] ([id number])[address], [place] [address] Performed By: #### C BCA, CMP, LIVR, , 2776-04 ####[facility] ([id number])[address], [place] [address] Anion gap [Moles/Vol] 7 mmol/L Normal 5-15 [facility] Comment on above: Performed By: #### E LEC, ####[facility] ([id number])[address], [place] [address] Chloride [Moles/Vol] 105 mmol/L Normal 98-109 [facility] Comment on above: Performed By: #### E LEC, ####[facility] ([id number])[address], [place] [address] CO2 [Moles/Vol] 26 mmol/L Normal 22-32 [facility] Comment on above: Performed By: #### E LEC, ####[facility] ([id number])[address], [place] [address] Potassium [Moles/Vol] 3.9 mmol/L Normal 3.5-5.0 [facility] Comment on above: Performed By: #### E LEC, ####[facility] ([id number])[address], [place] [address] Sodium [Moles/Vol] 138 mmol/L Normal 134-146 [facility] Comment on above: Performed By: #### E LEC, ####[facility] ([id number])[address] [place] [address] LIVER PANELon 06-16-2024 ALP [Catalytic activity/Vol] 79 U/L Normal 39-130 [facility] Comment on above: Performed By: #### L IVR ####[facility] ([id number])[address], [place] [address] AST [Catalytic activity/Vol] 15 U/L Normal 0-41 [facility] Comment on above: Performed By: #### L IVR ####[facility] ([id number])[address] [address], [place] [address] Bilirubin.direct [Mass/Vol] 0.7 mg/dL High 0.0-0.4 [facility] Comment on above: Performed By: #### C BCA, CMP, LIVR, , 2777-1 ####[facility] ([id number])[address], [place] [address] Performed By: #### L IVR ####[facility] ([id number])[address], [place] [address] Protein [Mass/Vol] 5.2 g/dL Low 6.0-8.0 [facility] Comment on above: Performed By: #### L IVR ####[facility] ([id number])[address] [place] [address] MAGNESIUMon 06-16-2024 Magnesium [Mass/Vol] 1.8 mg/dL Normal 1.8-2.6 [facility] Comment on above: Performed By: #### E LEC, , 2776-04 ####[facility] ([id number])[address], [place] [address] Magnesium [Mass/Vol] 1.9 mg/dL Normal 1.8-2.6 [facility] Comment on above: Performed By: #### E LEC, ####[facility] ([id number])[address], [place] [address] PHOSPHORUSon 06-16-2024 Phosphate [Mass/Vol] 2.3 mg/dL Low 2.4-4.9 [facility] Comment on above: Performed By: #### E LEC, , 2776-04 ####[facility] ([id number])[address], [place] [address] Phosphate [Mass/Vol] 3.1 mg/dL Normal 2.4-4.9 [facility] Comment on above: Performed By: #### C BCA, CMP, LIVR, , 2776-04 ####[facility] ([id number])[address], [place] [address] PROTIME AND INRon 06-16-2024 PT Coag (PPP) [Time] 14.5 s High 9.8-13.2 [facility] Comment on above: Performed By: #### P INR, 51157-4 ####[facility] ([id number])[address], [place] [address] INR Coag (PPP) [Relative time] 1.3 {INR} High 0.9-1.2 [facility] Comment on above: Performed By: #### P INR, 24512-9 ####[facility] ([id number])[address], [place] [address] PT Coag (PPP) [Time] 15.1 s High 9.8-13.2 [facility] Comment on above: Performed By: #### P INR, 34983-0 ####[facility] ([id number])[address], [place] [address] Vancomycin [Mass/Vol]on VANCOMYCIN 15.8 ug/mL Normal 5.0-40.0 [facility] Comment on above: Result Comment: Peak 30-40 ug/mLTrough 5-20 ug/ml Performed By: #### 2 0578-1 ####[facility] ([id number])[address], [place] [address] XR CHEST 1 VWon 06-16-2024 XR CHEST 1 VW Normal [facility] aPTT Coag (PPP) [Time]on aPTT Coag (Bld) [Time] 33 s Normal 26-37 Pr [facility] Comment on above: Performed By: #### P INR, 68320-5 ####[facility] ([id number])[address], [place] [address] aPTT Coag (Bld) [Time] 32 s Normal 26-37 Pr [facility] Comment on above: Performed By: #### P INR, 13201-2 ####[facility] ([id number])[address], [place] [address] ARTERIAL BLOOD GASon 025 ROBERT'S TEST Normal [facility] Comment on above: Performed By: #### A BG ####[facility] ([id number])[address] [place] [address] BASE,DEFICIT 6.0 MMOL/L High 0.0-2.0 [facility] Comment on above: Performed By: #### A BG ####[facility] ([id number])[address] [facility] [place] [address] Body temperature 98.6 [degF] Normal 37.0 [facility] Comment on above: Performed By: #### A BG ####[facility] ([id number])[address] [facility] [place] [address] HCO3 (Bld) [Moles/Vol] 17.9 mmol/L Low 22-26 P [facility] Comment on above: Performed By: #### A BG ####[facility] ([id number])[address] [place] [address] INSP. O2 CONC. 40 % Normal [facility] Comment on above: Performed By: #### A BG ####[facility] ([id number])[address] [place] [address] Oxygen (Bld) [Partial pressure] 96 mm[Hg] Normal 80-100 [facility] Comment on above: Performed By: #### A BG ####[facility] ([id number])[address] [facility] [place] [address] Oxygen saturation in Blood 98.0 % Normal >90 [facility] Comment on above: Performed By: #### A BG ####[facility] ([id number])[address] [place] [address] OXYGEN SOURCE Vent Normal [facility] Comment on above: Performed By: #### A BG ####[facility] ([id number])[address] [place] [address] PCO2 28.0 MMHG Low 35-45 [facility] Comment on above: Performed By: #### A BG ####[facility] ([id number])[address] [facility] [place] [address] pH (Bld) 7.414 [pH] Normal 7.350-7.45 0 [facility] Comment on above: Performed By: #### A BG ####[facility] ([id number])[address] [place] [address] SAMPLE SITE Breanne Normal [facility] Comment on above: Performed By: #### A BG ####[facility] ([id number])[address] [place] [address] SAMPLE TYPE ARTERIAL Normal [facility] Comment on above: Performed By: #### A BG ####[facility] ([id number])[address] [place] [address] BLOOD CULTUREon 06-15-2024 Bacteria identified Aer cx Nom (Bld) CULTURE RESULTS NO GROWTH 5 DAYS Normal [facility] CBC AND AUTO DIFFon 06-16-19 ABSOLUTE BASOPHIL 0.0 X10E9/L Normal 0.0-0.2 [facility] Comment on above: Performed By: #### C MARY, LIVR, , 2776-04, CBCA ####[facility] ([id number])[address], [address], [place] [address] ABSOLUTE NEUTROPHIL 2.7 X10E9/L Normal 1.5-6.6 [facility] Comment on above: Performed By: #### C MARY, LIVR, , 2776-04, CBCA ####[facility] ([id number])[address], [address], [place] [address] Basophils/100 WBC (Bld) 1.2 % Normal P [facility] Comment on above: Performed By: #### C MARY, LIVR, , 2776-04, CBCA ####[facility] ([id number])[address], [address] [place] [address] Eosinophils (Bld) [#/Vol] 0.0 10*3/uL Normal 0.0-0.4 [facility] Comment on above: Performed By: #### C MP, LIVR, , 2776-04, CBCA ####[facility] ([id number])[address] [address] [place] [address] Eosinophils/100 WBC (Bld) 0.8 % Normal [facility] Comment on above: Performed By: #### C MP, LIVR, , 2776-04, CBCA ####[facility] ([id number])[address], [address] [place] [address] Erythrocyte distribution width (RBC) [Ratio] 17.3 % High 11.5-15.0 [facility] Comment on above: Performed By: #### C MP, LIVR, , 2776-04, CBCA ####[facility] ([id number])[address], [address] [place] [address] Hematocrit (Bld) [Volume fraction] 22.1 % Low 35-47 [facility] Comment on above: Performed By: #### C MP, LIVR, , 2776-04, CBCA ####[facility] ([id number])[address] [address] [place] [address] Hemoglobin (Bld) [Mass/Vol] 7.6 g/dL Low 11.7-15.5 [facility] Comment on above: Performed By: #### C MP, LIVR, , 2776-04, CBCA ####[facility] ([id number])[address] [address] [place] [address] Lymphocytes (Bld) [#/Vol] 0.7 10*3/uL Low 1.0-3.5 [facility] Comment on above: Performed By: #### C MP, LIVR, , 2776-04, CBCA ####[facility] ([id number])[address] [address] [place] [address] Lymphocytes/100 WBC (Bld) 19.1 % Normal [facility] Comment on above: Performed By: #### C MARY, LIVR, , 2776-04, CBCA ####[facility] ([id number])[address] [address] MCH (RBC) [Entitic mass] 32.9 pg Normal 27-34 [facility] Comment on above: Performed By: #### C MARY, LIVR, , 2776-04, CBCA ####[facility] ([id number])[address] [address] MCHC (RBC) [Mass/Vol] 34.6 g/dL Normal 32-36 [facility] Comment on above: Performed By: #### C MARY, LIVR, , 2776-04, CBCA ####[facility] ([id number])[address] [address] [place] [address] MCV (RBC) [Entitic vol] 95 fL Normal 80-100 P [facility] Comment on above: Performed By: #### C MARY, LIVR, , 2776-04, CBCA ####[facility] ([id number])[address] [address] Monocytes (Bld) [#/Vol] 0.3 10*3/uL Normal 0-0.9 [facility] Comment on above: Performed By: #### C MARY, LIVR, , 2776-04, CBCA ####[facility] ([id number])[address] [address] Monocytes/100 WBC (Bld) 7.7 % Normal P [facility] Comment on above: Performed By: #### C MP, LIVR, , 2776-04, CBCA ####[facility] ([id number])[address], [address], [place] [address] Neutrophils/100 WBC (Bld) 71.2 % Normal [facility] Comment on above: Performed By: #### C MP, LIVR, , 2776-04, CBCA ####[facility] ([id number])[address], [address], [place] [address] Platelet mean volume (Bld) [Entitic vol] 7.1 fL Normal 7-12 [facility] Comment on above: Performed By: #### C MARY, LIVR, , 2776-04, CBCA ####[facility] ([id number])[address], [address], [place] [address] Platelets (Bld) [#/Vol] 93 10*3/uL Low 150-450 P [facility] Comment on above: Performed By: #### C MP, LIVR, , 2776-04, CBCA ####[facility] ([id number])[address] [address], [place] [address] RBC COUNT 2.32 X10E12/L Low 3.80-5.20 [facility] Comment on above: Performed By: #### C MP, LIVR, , 2776-04, CBCA ####[facility] ([id number])[address] [address] [place] [address], [place] [address] WBC (Bld) [#/Vol] 3.8 10*3/uL Low 4.0-11.0 [facility] Comment on above: Performed By: #### C MP, LIVR, , 2776-04, CBCA ####[facility] ([id number])[address], [address] [place] [address] COMPREHENSIVE METABOLIC PANE Kael 06-15-2024 Albumin [Mass/Vol] 3.3 g/dL Normal 3.2-5.3 [facility] Comment on above: Performed By: #### C MP, LIVR, , 2776-04, CBCA ####[facility] ([id number])[address], [address], [place] [address] ALP [Catalytic activity/Vol] 80 U/L Normal 39-130 [facility] Comment on above: Performed By: #### C MP, LIVR, , 2776-04, CBCA ####[facility] ([id number])[address], [address] [place] [address] ALT [Catalytic activity/Vol] 6 U/L Normal 0-31 [facility] Comment on above: Performed By: #### C MARY, LIVR, , 2776-04, CBCA ####[facility] ([id number])[address], [address], [place] [address] Anion gap [Moles/Vol] 12 mmol/L Normal 5-15 [facility] Comment on above: Performed By: #### C MP, LIVR, , 2776-04, CBCA ####[facility] ([id number])[address], [address] [place] [address] AST [Catalytic activity/Vol] 12 U/L Normal 0-41 [facility] Comment on above: Performed By: #### C MP, LIVR, , 2776-04, CBCA ####[facility] ([id number])[address], [address], [place] [address] Bilirubin [Mass/Vol] 2.0 mg/dL High 0.3-1.2 [facility] Comment on above: Performed By: #### C MP, LIVR, , 2776-04, CBCA ####[facility] ([id number])[address], [address], [place] [address] Calcium [Mass/Vol] 8.7 mg/dL Normal 8.5-10.5 [facility] Comment on above: Performed By: #### C MARY, LIVR, , 2776-04, CBCA ####[facility] ([id number])[address] [address], [place] [address] Chloride [Moles/Vol] 100 mmol/L Normal 98-109 [facility] Comment on above: Performed By: #### C MARY, LIVR, , 2776-04, CBCA ####[facility] ([id number])[address] [address], [place] [address] CO2 [Moles/Vol] 22 mmol/L Normal 22-32 [facility] Comment on above: Performed By: #### C MARY, LIVR, , 2776-04, CBCA ####[facility] ([id number])[address] [address] [place] [address] Creatinine [Mass/Vol] 2.42 mg/dL High 0.40-1.00 [facility] Comment on above: Result Comment: METH OD TRACEABLE TO IDMS STANDARD Performed By: #### C MARY, LIVR, , 2776-04, CBCA ####[facility] ([id number])[address] [address] GFR/1.73 sq M.predicted among non-blacks MDRD (S/P/Bld) [Vol rate/Area] 22 mL/min/{1.73_m2} Low >59 [facility] Comment on above: Result Comment: Repo rted eGFR is based on theCKD-EPI 2020 equation that doesnot use a race coefficient. Performed By: #### C MARY, LIVR, , 2776-04, CBCA ####[facility] ([id number])[address], [address], [place] [address] Glucose [Mass/Vol] 98 mg/dL Normal 65-99 [facility] Comment on above: Performed By: #### C MARY, LIVR, , 2776-04, CBCA ####[facility] ([id number])[address], [address], [place] [address] Protein [Mass/Vol] 5.1 g/dL Low 6.0-8.0 [facility] Comment on above: Performed By: #### C MARY, LIVR, , 2776-04, CBCA ####[facility] ([id number])[address], [address], [place] [address] Sodium [Moles/Vol] 134 mmol/L Normal 134-146 [facility] Comment on above: Performed By: #### Bertha HERNANDEZ, LIVR, , 2776-04, CBCA ####[facility] ([id number])[address], [address], [place] [address] Urea nitrogen [Mass/Vol] 29 mg/dL High 5-27 [facility] Comment on above: Performed By: #### Bertha MP, LIVR, , 2776-04, CBCA ####[facility] ([id number])[address], [address], [place] [address] ELECTROLYTESon 06-15-2024 CO2 [Moles/Vol] 24 mmol/L Normal 22-32 [facility] Comment on above: Performed By: #### Cyndie LEC, , 2776-04 ####[facility] ([id number])[address], [address], [place] [address] Potassium [Moles/Vol] 3.6 mmol/L Normal 3.5-5.0 [facility] Comment on above: Performed By: #### Cyndie LEC, , 2776-04 ####[facility] ([id number])[address], [address], [place] [address] Sodium [Moles/Vol] 137 mmol/L Normal 134-146 [facility] Comment on above: Performed By: #### E LEC, , 2776-04 ####[facility] ([id number])[address], [address], [place] [address] Anion gap [Moles/Vol] 11 mmol/L Normal 5-15 [facility] Comment on above: Performed By: #### E LEC, , 2776-04 ####[facility] ([id number])[address], [place] [address] Performed By: #### E LEC, , ####[facility] ([id number])[address], [address], [place] [address] Chloride [Moles/Vol] 102 mmol/L Normal 98-109 [facility] Comment on above: Performed By: #### E LEC, , 2776-04 ####[facility] ([id number])[address], [place] [address] Performed By: #### E LEC, , ####[facility] ([id number])[address], [address], [place] [address] CO2 [Moles/Vol] 23 mmol/L Normal 22-32 [facility] Comment on above: Performed By: #### E LEC, , ####[facility] ([id number])[address], [address], [place] [address] Sodium [Moles/Vol] 136 mmol/L Normal 134-146 [facility] Comment on above: Performed By: #### E LEC, , ####[facility] ([id number])[address], [address] [place] [address] HGBon 06-15-2024 Hematocrit (Bld) [Volume fraction] 22.7 % Low 35-47 [facility] Comment on above: Performed By: #### H H ####[facility] ([id number])[address], [address] [place] [address] Hemoglobin (Bld) [Mass/Vol] 7.7 g/dL Low 11.7-15.5 [facility] Comment on above: Performed By: #### H H ####[facility] ([id number])[address], [address] [place] [address] LIVER PANELon 06-15-2024 Bilirubin.direct [Mass/Vol] 0.9 mg/dL High 0.0-0.4 [facility] Comment on above: Performed By: #### C MARY, LIVR, , 2776-04, CBCA ####[facility] ([id number])[address] [address] [place] [address] MAGNESIUMon 06-15-2024 Magnesium [Mass/Vol] 1.9 mg/dL Normal 1.8-2.6 [facility] Comment on above: Performed By: #### Cyndie LEC, , 2776-04 ####[facility] ([id number])[address] [address] [place] [address] Performed By: #### C MP, LIVR, , 2776-04, CBCA ####[facility] ([id number])[address] [address] [place] [address], [place] [address] Magnesium [Mass/Vol] 2.0 mg/dL Normal 1.8-2.6 [facility] Comment on above: Performed By: #### Cyndie LEC, , ####[facility] ([id number])[address], [address] [place] [address] PHOSPHORUSon 06-15-2024 Phosphate [Mass/Vol] 2.2 mg/dL Low 2.4-4.9 [facility] Comment on above: Performed By: #### E LEC, , [address] ####[facility] ([id number])[address], [address] [place] [address] Phosphate [Mass/Vol] 3.8 mg/dL Normal 2.4-4.9 [facility] Comment on above: Performed By: #### C MARY, LIVR, , 2776-04, CBCA ####[facility] ([id number])[address], [place] [address] POTASSIUMon 06-15-2024 Potassium [Moles/Vol] 3.8 mmol/L Normal 3.5-5.0 [facility] Comment on above: Performed By: #### 2 823-3 ####[facility] ([id number])[address], [place] [address] Performed By: #### C MP, LIVR, , 2776-04, CBCA ####[facility] ([id number])[address], [address] [place] [address] Performed By: #### E LEC, , 14564-1 ####[facility] ([id number])[address], [address], [place] [address] PROTIME AND INRon 06-15-2024 PT Coag (PPP) [Time] 15.2 s High 9.8-13.2 [facility] Comment on above: Performed By: #### P INR, 19191-0 ####[facility] ([id number])[address], [address], [place] [address] INR Coag (PPP) [Relative time] 1.3 {INR} High 0.9-1.2 [facility] Comment on above: Performed By: #### P INR, 02359-1 ####[facility] ([id number])[address], [address] [place] [address] PT Coag (PPP) [Time] 15.3 s High 9.8-13.2 [facility] Comment on above: Performed By: #### P INR, 19169-7 ####[facility] ([id number])[address] [address] [place] [address] Vancomycin [Mass/Vol]on VANCOMYCIN 27.0 ug/mL Normal 5.0-40.0 [facility] Comment on above: Result Comment: Peak 30-40 ug/mLTrough 5-20 ug/ml Performed By: #### 2 0578-1 ####[facility] ([id number])[address], [address] [place] [address] VANCOMYCIN 21.4 ug/mL Normal 5.0-40.0 [facility] Comment on above: Result Comment: Peak 30-40 ug/mLTrough 5-20 ug/ml Performed By: #### E LEC, 04532-0, 05612-7 ####[facility] ([id number])[address] [address] [place] [address] XR CHEST 1 VWon 06-15-2024 XR CHEST 1 VW Normal [facility] aPTT Coag (PPP) [Time]on aPTT Coag (Bld) [Time] 38 s High 26-37 Pr [facility] Comment on above: Performed By: #### P INR, 13316-4 ####[facility] ([id number])[address], [address] [place] [address], [place] [address] ARTERIAL BLOOD GASon 025 ROBERT'S TEST Pass Normal [facility] Comment on above: Performed By: #### A BG ####[facility] ([id number])[address] [place] [address] BASE,DEFICIT 8.0 MMOL/L High 0.0-2.0 [facility] Comment on above: Performed By: #### A BG ####[facility] ([id number])[address] [place] [address] Body temperature 98.6 [degF] Normal 37.0 [facility] Comment on above: Performed By: #### A BG ####[facility] ([id number])[address] [place] [address] HCO3 (Bld) [Moles/Vol] 18.8 mmol/L Low 22-26 P [facility] Comment on above: Performed By: #### A BG ####[facility] ([id number])[address] [place] [address] INSP. O2 CONC. 40 % Normal [facility] Comment on above: Performed By: #### A BG ####[facility] ([id number])[address] [place] [address] Oxygen (Bld) [Partial pressure] 118 mm[Hg] High 80-100 [facility] Comment on above: Performed By: #### A BG ####[facility] ([id number])[address] [place] [address] Oxygen saturation in Blood 98.0 % Normal >90 [facility] Comment on above: Performed By: #### A BG ####[facility] ([id number])[address] [place] [address] OXYGEN SOURCE Vent Normal [facility] Comment on above: Performed By: #### A BG ####[facility] ([id number])[address] [facility] [place] [address] PCO2 45.7 MMHG High 35-45 [facility] Comment on above: Performed By: #### A BG ####[facility] ([id number])[address] [place] [address] pH (Bld) 7.223 [pH] Low 7.350-7.45 0 [facility] Comment on above: Performed By: #### A BG ####[facility] ([id number])[address] [place] [address] SAMPLE SITE LRad Normal [facility] Comment on above: Performed By: #### A BG ####[facility] ([id number])[address] [place] [address] SAMPLE TYPE ARTERIAL Normal [facility] Comment on above: Performed By: #### A BG ####[facility] ([id number])[address] [facility] [place] [address] BASIC METABOLIC PANLon 06-14 Anion gap [Moles/Vol] 10 mmol/L Normal 5-15 [facility] Comment on above: Performed By: #### B MARY LIVR ####[facility] ([id number])[address], [place] [address] Calcium [Mass/Vol] 8.0 mg/dL Low 8.5-10.5 [facility] Comment on above: Performed By: #### B MARY LIVR ####[facility] ([id number])[address], [place] [address] Chloride [Moles/Vol] 100 mmol/L Normal 98-109 [facility] Comment on above: Performed By: #### Greer HERNANDEZ, LIVR ####[facility] ([id number])[address], [place] [address] Creatinine [Mass/Vol] 3.64 mg/dL High 0.40-1.00 [facility] Comment on above: Result Comment: METH OD TRACEABLE TO IDMS STANDARD Performed By: #### B MARY, LIVR ####[facility] ([id number])[address] [place] [address] GFR/1.73 sq M.predicted among non-blacks MDRD (S/P/Bld) [Vol rate/Area] 14 mL/min/{1.73_m2} Low >59 [facility] Comment on above: Result Comment: Repo rted eGFR is based on theCKD-EPI 2020 equation that doesnot use a race coefficient. Performed By: #### Greer HERNANDEZ, LIVR ####[facility] ([id number])[address] [address] [place] [address] Glucose [Mass/Vol] 97 mg/dL Normal 65-99 [facility] Comment on above: Performed By: #### Greer HERNANDEZ, LIVR ####[facility] ([id number])[address], [place] [address] Potassium [Moles/Vol] 4.8 mmol/L Normal 3.5-5.0 [facility] [place] Comment on above: Performed By: #### Greer HERNANDEZ, LIVR ####[facility] ([id number])[address] [place] [address] Sodium [Moles/Vol] 131 mmol/L Low 134-146 [facility] Comment on above: Performed By: #### Greer HERNANDEZ, LIVR ####[facility] ([id number])[address], [place] [address] Urea nitrogen [Mass/Vol] 42 mg/dL High 5-27 [facility] Comment on above: Performed By: #### B HAMIDA HERNANDEZ ####[facility] ([id number])[address], [address] [place] [address] CBC AND AUTO DIFFon 06-15-19 25 ABSOLUTE BASOPHIL 0.1 X10E9/L Normal 0.0-0.2 [facility] Comment on above: Performed By: #### C BCA ####[facility] ([id number])[address] [address] [place] [address] ABSOLUTE NEUTROPHIL 4.3 X10E9/L Normal 1.5-6.6 [facility] Comment on above: Performed By: #### C BCA ####[facility] ([id number])[address] [address] Basophils/100 WBC (Bld) 0.9 % Normal [facility] Comment on above: Performed By: #### C BCA ####[facility] ([id number])[address] [address] Eosinophils (Bld) [#/Vol] 0.0 10*3/uL Normal 0.0-0.4 [facility] Comment on above: Performed By: #### C BCA ####[facility] ([id number])[address] [address] Eosinophils/100 WBC (Bld) 0.1 % Normal [facility] Comment on above: Performed By: #### C BCA ####[facility] ([id number])[address] [address] Erythrocyte distribution width (RBC) [Ratio] 16.9 % High 11.5-15.0 [facility] Comment on above: Performed By: #### C BCA ####[facility] ([id number])[address], [address], [place] [address] Hematocrit (Bld) [Volume fraction] 23.1 % Low 35-47 [facility] Comment on above: Performed By: #### C BCA ####[facility] ([id number])[address], [address], [place] [address] Hemoglobin (Bld) [Mass/Vol] 7.5 g/dL Low 11.7-15.5 [facility] Comment on above: Performed By: #### C BCA ####[facility] ([id number])[address], [address], [place] [address] Lymphocytes (Bld) [#/Vol] 0.6 10*3/uL Low 1.0-3.5 [facility] Comment on above: Performed By: #### C BCA ####[facility] ([id number])[address] [address], [place] [address] Lymphocytes/100 WBC (Bld) 11.5 % Normal [facility] Comment on above: Performed By: #### C BCA ####[facility] ([id number])[address], [place] [address] MCH (RBC) [Entitic mass] 32.8 pg Normal 27-34 [facility] Comment on above: Performed By: #### C BCA ####[facility] ([id number])[address], [place] [address] MCHC (RBC) [Mass/Vol] 32.4 g/dL Normal 32-36 [facility] Comment on above: Performed By: #### C BCA ####[facility] ([id number])[address] [address], [place] [address] MCV (RBC) [Entitic vol] 101 fL High 80-100 P [facility] Comment on above: Performed By: #### C BCA ####[facility] ([id number])[address], [address], [place] [address] Monocytes (Bld) [#/Vol] 0.4 10*3/uL Normal 0-0.9 [facility] Comment on above: Performed By: #### C BCA ####[facility] ([id number])[address], [address], [place] [address] Monocytes/100 WBC (Bld) 6.8 % Normal [facility] Comment on above: Performed By: #### C BCA ####[facility] ([id number])[address], [address], [place] [address] Neutrophils/100 WBC (Bld) 80.7 % Normal [facility] Comment on above: Performed By: #### C BCA ####[facility] ([id number])[address], [address], [place] [address] Platelet mean volume (Bld) [Entitic vol] 7.2 fL Normal 7-12 [facility] Comment on above: Performed By: #### C BCA ####[facility] ([id number])[address], [address], [place] [address] Platelets (Bld) [#/Vol] 148 10*3/uL Low 150-450 [facility] Comment on above: Performed By: #### C BCA ####[facility] ([id number])[address], [address], [place] [address] RBC COUNT 2.28 X10E12/L Low 3.80-5.20 [facility] Comment on above: Performed By: #### C BCA ####[facility] ([id number])[address], [address], [place] [address] WBC (Bld) [#/Vol] 5.3 10*3/uL Normal 4.0-11.0 [facility] Comment on above: Performed By: #### C BCA ####[facility] ([id number])[address], [address] [place] [address] ABSOLUTE BASOPHIL 0.0 X10E9/L Normal 0.0-0.2 [facility] Comment on above: Performed By: #### C BCA, CMP, 95918-0, 2777-1, TSHR, 3024-7, 5196-1, 5193-8, 4679-7, 08774-8 ####[facility] ([id number])[address], [address] [place] [address] ABSOLUTE NEUTROPHIL 3.8 X10E9/L Normal 1.5-6.6 [facility] Comment on above: Performed By: #### C BCA, CMP, 24763-5, 2777-1, TSHR, 3024-7, 5196-1, 5193-8, 4679-7, 91159-4 ####[facility] ([id number])[address], [address], [place] [address] Basophils/100 WBC (Bld) 0.7 % Normal P [facility] Comment on above: Performed By: #### C BCA, CMP, 45562-8, 2777-1, TSHR, 3024-7, 5196-1, 5193-8, 4679-7, 85167-3 ####[facility] ([id number])[address], [address] [place] [address] Eosinophils (Bld) [#/Vol] 0.0 10*3/uL Normal 0.0-0.4 [facility] Comment on above: Performed By: #### C BCA, CMP, 60730-8, 2777-1, TSHR, 3024-7, 5196-1, 5193-8, 4679-7, 59850-1 ####[facility] ([id number])[address], [address] [place] [address] Eosinophils/100 WBC (Bld) 0.3 % Normal [facility] Comment on above: Performed By: #### C BCA, CMP, 51604-3, 2777-1, TSHR, 3024-7, 5196-1, 5193-8, 4679-7, 58188-8 ####[facility] ([id number])[address], [address], [place] [address] Erythrocyte distribution width (RBC) [Ratio] 16.8 % High 11.5-15.0 [facility] Comment on above: Performed By: #### C BCA, CMP, 01556-1, 7-1, TSHR, 3024-7, 5196-1, 5193-8, 4679-7, 03067-9 ####[facility] ([id number])[address], [address] [place] [address] Hematocrit (Bld) [Volume fraction] 23.6 % Low 35-47 [facility] Comment on above: Performed By: #### C BCA, CMP, 51593-4, 7-1, TSHR, 3024-7, 5196-1, 5193-8, 4679-7, 86509-6 ####[facility] ([id number])[address], [address] [place] [address] Hemoglobin (Bld) [Mass/Vol] 7.6 g/dL Low 11.7-15.5 [facility] Comment on above: Performed By: #### C BCA, CMP, 85085-6, 7-1, TSHR, 3024-7, 5196-1, 5193-8, 4679-7, 58563-8 ####[facility] ([id number])[address], [address] [place] [address] Lymphocytes (Bld) [#/Vol] 0.5 10*3/uL Low 1.0-3.5 [facility] Comment on above: Performed By: #### C BCA, CMP, 52715-5, 2777-1, TSHR, 3024-7, 5196-1, 5193-8, 4679-7, 47287-4 ####[facility] ([id number])[address], [address], [place] [address] Lymphocytes/100 WBC (Bld) 9.8 % Normal [facility] Comment on above: Performed By: #### C BCA, CMP, 79347-1, 2777-1, TSHR, 3024-7, 5196-1, 5193-8, 4679-7, 46480-0 ####[facility] ([id number])[address], [address] [place] [address] MCH (RBC) [Entitic mass] 32.7 pg Normal 27-34 [facility] Comment on above: Performed By: #### C BCA, CMP, 30766-3, 2777-1, TSHR, 3024-7, 5196-1, 5193-8, 4679-7, 64255-8 ####[facility] ([id number])[address], [address], [place] [address] MCHC (RBC) [Mass/Vol] 32.0 g/dL Normal 32-36 [facility] Comment on above: Performed By: #### C BCA, CMP, 29132-9, 2777-1, TSHR, 3024-7, 5196-1, 5193-8, 4679-7, 73795-3 ####[facility] ([id number])[address], [address], [place] [address] MCV (RBC) [Entitic vol] 102 fL High 80-100 P [facility] Comment on above: Performed By: #### C BCA, CMP, 96127-6, 2777-1, TSHR, 3024-7, 5196-1, 5193-8, 4679-7, 34656-8 ####[facility] ([id number])[address], [address], [place] [address] Monocytes (Bld) [#/Vol] 0.4 10*3/uL Normal 0-0.9 [facility] Comment on above: Performed By: #### C BCA, CMP, 35619-1, 2777-1, TSHR, 3024-7, 5196-1, 5193-8, 4679-7, 67918-7 ####[facility] ([id number])[address], [address], [place] [address] Monocytes/100 WBC (Bld) 9.1 % Normal P [facility] Comment on above: Performed By: #### C BCA, CMP, 11163-1, 2777-1, TSHR, 3024-7, 5196-1, 5193-8, 4679-7, 39033-2 ####[facility] ([id number])[address], [address] [place] [address] Neutrophils/100 WBC (Bld) 80.1 % Normal [facility] Comment on above: Performed By: #### C BCA, CMP, 45005-0, 2777-1, TSHR, 3024-7, 5196-1, 5193-8, 4679-7, 09512-4 ####[facility] ([id number])[address], [address], [place] [address] Platelet mean volume (Bld) [Entitic vol] 7.3 fL Normal 7-12 [facility] Comment on above: Performed By: #### C BCA, CMP, 31739-7, 2777-1, TSHR, 3024-7, 5196-1, 5193-8, 4679-7, 74196-6 ####[facility] ([id number])[address], [address], [place] [address] Platelets (Bld) [#/Vol] 138 10*3/uL Low 150-450 [facility] Comment on above: Performed By: #### C BCA, CMP, 61292-5, 2777-1, TSHR, 3024-7, 5196-1, 5193-8, 4679-7, 81048-5 ####[facility] ([id number])[address], [address] [place] [address] RBC COUNT 2.31 X10E12/L Low 3.80-5.20 [facility] Comment on above: Performed By: #### C BCA, CMP, 67860-7, 2777-1, TSHR, 3024-7, 5196-1, 5193-8, 4679-7, 97059-7 ####[facility] ([id number])[address] [address] WBC (Bld) [#/Vol] 4.8 10*3/uL Normal 4.0-11.0 [facility] Comment on above: Performed By: #### C BCA, CMP, 82368-4, 2777-1, TSHR, 3024-7, 5196-1, 5193-8, 4679-7, 07184-4 ####[facility] ([id number])[address] [facility] [place] [address] COMPLEMENT PROFILEon 025 COMPLEMENT C3 69 mg/dL Low 86-184 [facility] Comment on above: Performed By: #### [address], [place], [place], 00574-5, 32083-5 ####[facility] ([id number])[address] [place] [address] COMPLEMENT C4 13 mg/dL Low 16-47 [facility] Comment on above: Performed By: #### [address], [place], [place], [address]90-7, 80706-7 ####[facility] ([id number])[address], [address] [place] [address] COMPREHENSIVE METABOLIC PANE Kael 06-14-2024 Albumin [Mass/Vol] 3.1 g/dL Low 3.2-5.3 [facility] Comment on above: Performed By: #### C BCA, CMP, 39428-3, 2777-1, TSHR, 3024-7, 5196-1, 5193-8, 4679-7, 80483-4 ####[facility] ([id number])[address], [address], [place] [address] ALP [Catalytic activity/Vol] 119 U/L Normal 39-130 [facility] Comment on above: Performed By: #### C BCA, CMP, 07420-2, 2777-1, TSHR, 3024-7, 5196-1, 5193-8, 4679-7, 19626-9 ####[facility] ([id number])[address], [address] [place] [address] ALT [Catalytic activity/Vol] 6 U/L Normal 0-31 [facility] Comment on above: Performed By: #### C BCA, CMP, 73465-1, 2777-1, TSHR, 3024-7, 5196-1, 5193-8, 4679-7, 13651-7 ####[facility] ([id number])[address], [address] [place] [address] Anion gap [Moles/Vol] 10 mmol/L Normal 5-15 [facility] Comment on above: Performed By: #### C BCA, CMP, 31498-2, 2777-1, TSHR, 3024-7, 5196-1, 5193-8, 4679-7, 61569-0 ####[facility] ([id number])[address], [address] [place] [address] AST [Catalytic activity/Vol] 12 U/L Normal 0-41 [facility] Comment on above: Performed By: #### C BCA, CMP, 66367-5, 2777-1, TSHR, 3024-7, 5196-1, 5193-8, 4679-7, 35969-7 ####[facility] ([id number])[address], [place] [address] Bilirubin [Mass/Vol] 0.8 mg/dL Normal 0.3-1.2 [facility] Comment on above: Performed By: #### C BCA, CMP, 15737-9, 2777-1, TSHR, 3024-7, 5196-1, 5193-8, 4679-7, 88880-5 ####[facility] ([id number])[address], [place] [address] Calcium [Mass/Vol] 7.9 mg/dL Low 8.5-10.5 [facility] Comment on above: Performed By: #### C BCA, CMP, 76951-2, 2777-1, TSHR, 3024-7, 5196-1, 5193-8, 4679-7, 44158-8 ####[facility] ([id number])[address], [place] [address] Chloride [Moles/Vol] 98 mmol/L Normal 98-109 [facility] Comment on above: Performed By: #### C BCA, CMP, 16385-0, 2777-1, TSHR, 3024-7, 5196-1, 5193-8, 4679-7, 46671-7 ####[facility] ([id number])[address], [place] [address] CO2 [Moles/Vol] 20 mmol/L Low 22-32 [facility] Comment on above: Performed By: #### C BCA, CMP, 60354-8, 2777-1, TSHR, 3024-7, 5196-1, 5193-8, 4679-7, 58175-8 ####[facility] ([id number])[address], [place] [address] Creatinine [Mass/Vol] 3.45 mg/dL High 0.40-1.00 [facility] Comment on above: Result Comment: METH OD TRACEABLE TO IDMS STANDARD Performed By: #### C BCA, CMP, 87660-5, 2777-1, TSHR, 3024-7, 5196-1, 5193-8, 4679-7, 94755-6 ####[facility] ([id number])[address], [address] [place] [address] GFR/1.73 sq M.predicted among non-blacks MDRD (S/P/Bld) [Vol rate/Area] 15 mL/min/{1.73_m2} Low >59 [facility] Comment on above: Result Comment: Repo rted eGFR is based on theCKD-EPI 2020 equation that doesnot use a race coefficient. Performed By: #### C BCA, CMP, 88348-7, 2777-1, TSHR, 3024-7, 5196-1, 5193-8, 4679-7, 23774-4 ####[facility] ([id number])[address], [address] [place] [address] Glucose [Mass/Vol] 91 mg/dL Normal 65-99 [facility] Comment on above: Performed By: #### C BCA, CMP, 09637-7, 2777-1, TSHR, 3024-7, 5196-1, 5193-8, 4679-7, 03309-4 ####[facility] ([id number])[address], [address] [place] [address] Potassium [Moles/Vol] 4.7 mmol/L Normal 3.5-5.0 [facility] Comment on above: Performed By: #### C BCA, CMP, 45968-1, 2777-1, TSHR, 3024-7, 5196-1, 5193-8, 4679-7, 32835-9 ####[facility] ([id number])[address], [address] [place] [address] Protein [Mass/Vol] 5.9 g/dL Low 6.0-8.0 [facility] Comment on above: Performed By: #### C BCA, CMP, 30000-0, 2777-1, TSHR, 3024-7, 5196-1, 5193-8, 4679-7, 02295-5 ####[facility] ([id number])[address], [address] [place] [address] Sodium [Moles/Vol] 128 mmol/L Low 134-146 [facility] Comment on above: Performed By: #### C BCA, CMP, 79951-6, 2777-1, TSHR, 3024-7, 5196-1, 5193-8, 4679-7, 59172-5 ####[facility] ([id number])[address] [facility] [address] [place] [address] Urea nitrogen [Mass/Vol] 43 mg/dL High 5-27 [facility] Comment on above: Performed By: #### C BCA, CMP, 88708-2, 2777-1, TSHR, 3024-7, 5196-1, 5193-8, 4679-7, 33867-5 ####[facility] ([id number])[address], [address] [place] [address] ABDOMEN AND PELVIS WO CON Ton 06-14-2024 CT ABDOMEN AND PELVIS WO CONT Normal [facility] CT CHEST WO CONTon CT CHEST WO CONT Normal [facility] CT NECK SOFT TISSUE WO CONTo n 06-14-2024 CT NECK SOFT TISSUE WO CONT Normal [facility] Clinical Pathologyon 025 Clinical Pathology Normal [facility] Comment on above: Result Comment: [facility] [address] [place] [address] Clinical Pathology ReportPatient Name:ORESTES ALVARES:1965 (Age: 59)Gender:FTaken:3/7/2025Reported:06/17/2024Physician(s):Janice Yu M.D. ([phone])Copy To: Rec. #:[id number]: #[id number] Pathologic DiagnosisMonoclonal protein in gamma region, 0.2 g/dL, IgG kappa.Mild hypoalbuminemia. Report Electronically Signed Outdf/06/17/2024Eben Pappas MDInterpretation performed at [facility], [address] [place] [address], License number: [id number].Clinical ZzrtdlqM11.91, J96.01, J96.00.SERUM PROTEIN ELECTROPHORESISSAMPLE NO: [id number] FRACTION CONCENTRATIONS (g/dL) PATIENT REFERENCE RANGEAlbumin 3.2 L 3.4 - 5.3Alpha-1 globulin 0.4 0.1 - 0.4Alpha-2 globulin 0.5 0.4 - 1.1Beta globulin 0.9 0.5 - 1.2Gamma globulin 1.0 0.5 - 1.61 0.2Total protein 6.0 6.0 - 8.0(Electrophoretic gels and densitometric tracings on file in lab.)SERUM IEPIMMUNOGLOBULIN LEVELS (mg/dL): IgG : 1039 IgA : 568 IgM : 162 Free [place]: 22.41 Free Lambda: 13.82 Free [place]/Lambda ratio: 1.62Specimen(s) Received1: Serum Protein Electrophoresis2: Serum IEPFee Codes(s):1; 78767-814; 68110-90 Result Comment: [facility] [address] [place] [address] Clinical Pathology ReportPatient Name:ORESTES ALVARES:1965 (Age: 59)Gender:FTaken:06/14/2024Reported:06/17/2024Physician(s):Janice Yu M.D. ([phone])Copy To: Rec. #:[id number]: #[id number] Pathologic DiagnosisSerum like pattern suggestive of non-selective proteinuria.No monoclonal protein identified. Report Electronically Signed Outdf/06/17/2024Eben Pappas MDInterpretation performed at [facility], [address] [place] [address], License number: [id number].Clinical HdbetrxN86.91, J96.01, J96.00.URINE PROTEIN ELECTROPHORESISSAMPLE NUMBER: [id number] ELECTROPHORETIC CONCENTRATIONS (%) ? 100.0 Urine Protein 820 mg/L(Electrophoretic gels and densitometric tracings on file in lab.)Specimen(s) Received Urine Protein ElectrophoresisFee Codes(s):1; 34995-37 Clinical Pathology Blood Sme ar Reviewon 06-14-2024 Clinical Pathology Blood Smear Review Normal [facility] Comment on above: Result Comment: [facility] [address] [place] [address] Clinical Pathology ReportPatient Name:ORESTES ALVARES:1965 (Age: 59)Gender:FTaken:06/14/2024Reported:06/19/2024Physician(s):VAMSI Arreagaopy To: Rec. #:[id number]: #[id number] Pathologic DiagnosisPeripheral smear review:- Marked macrocytic anemia [...] Outduvall/06/19/2024Jamar Hammond MDInterpretation performed at [facility], [address] [place] [address], License number: [id number].Clinical History___BLOOD SMEAR EVALUATIONCBC (06/14/20245): WBC: 4.8 x 109/L RBC: 2.31 [...] no clumpsSpecimen(s) Received Blood Smear ReviewFee Codes(s):1; 83842 ELECTROLYTESon 06-14-2024 Anion gap [Moles/Vol] 13 mmol/L Normal 5-15 [facility] Comment on above: Performed By: #### E [facility], , 2777-1 ####[facility] ([id number])[address], [address] [place] [address] Potassium [Moles/Vol] 4.0 mmol/L Normal 3.5-5.0 [facility] Comment on above: Performed By: #### E [facility], , 2777-1 ####[facility] ([id number])[address], [address], [place] [address] Sodium [Moles/Vol] 135 mmol/L Normal 134-146 [facility] Comment on above: Performed By: #### E [facility], , 2777-1 ####[facility] ([id number])[address] [place] [address] Anion gap [Moles/Vol] 12 mmol/L Normal 5-15 [facility] Comment on above: Performed By: #### P INR, HH, ELEC, , 2776-04 ####[facility] ([id number])[address], [place] [address] Chloride [Moles/Vol] 101 mmol/L Normal 98-109 [facility] Comment on above: Performed By: #### E LEC, , 2776-04 ####[facility] ([id number])[address], [place] [address] Performed By: #### P INR, HH, ELEC, , 2776-04 ####[facility] ([id number])[address], [address], [place] [address] CO2 [Moles/Vol] 20 mmol/L Low 22-32 [facility] Comment on above: Performed By: #### P INR, HH, ELEC, , 2776-04 ####[facility] ([id number])[address], [address], [place] [address] Potassium [Moles/Vol] 4.3 mmol/L Normal 3.5-5.0 [facility] Comment on above: Performed By: #### P INR, HH, ELEC, , 2776-04 ####[facility] ([id number])[address], [address], [place] [address] Sodium [Moles/Vol] 133 mmol/L Low 134-146 [facility] Comment on above: Performed By: #### P INR, HH, ELEC, , 2776-04 ####[facility] ([id number])[address], [place] [address] CO2 [Moles/Vol] 21 mmol/L Low 22-32 [facility] Comment on above: Performed By: #### E LEC, , 2776-04 ####[facility] ([id number])[address], [address] [place] [address] Performed By: #### B MP, LIVR ####[facility] ([id number])[address], [address] [place] [address] FERRITINon 06-14-2024 Ferritin [Mass/Vol] 42 ng/mL Normal 11-307 [facility] Comment on above: Performed By: #### F EPR, 2276-4, 24876-1, TSHR, 2284-8, 2132-9, 3024-7, 2532-0 ####[facility] ([id number])[address], [address] [place] [address] FREE LIGHT CHAINSon 06-15-19 FREE POONAM/LAMBD RATIO 1.62 Normal 0.26-1.65 [facility] Comment on above: Performed By: #### [address], [place], [place], 50133-4, 77941-7 ####[facility] ([id number])[address] [address] [place] [address] FREE KAPPA LT CHAINS 22.41 mg/dL High 0.33-1.94 [facility] Comment on above: Performed By: #### [address], [place], [place], 43027-7, 37286-0 ####[facility] ([id number])[address] [address] [place] [address]69 FREE LAMBDA LT CHAINS 13.82 mg/dL High 0.57-2.63 [facility] Comment on above: Performed By: #### [address], [place], [place], 74259-8, 55115-2 ####[facility] ([id number])[address], [address] [place] [address]78[address] FREE T4on 06-14-2024 Free T4 [Mass/Vol] 0.58 ng/dL Low 0.61-1.60 [facility] Comment on above: Performed By: #### F EPR, 2276-4, 41933-8, TSHR, 2284-8, 2132-9, 3024-7, 2532-0 ####[facility] ([id number])[address] [place] [address], [address] [place] [address]162 Free T4 [Mass/Vol] 0.50 ng/dL Low 0.61-1.60 [facility] Comment on above: Performed By: #### C BCA, CMP, 34176-4, 7-1, TSHR, 3024-7, 5196-1, 5193-8, 4679-7, 63675-5 ####[facility] ([id number])[address] [place] [address]851 Folate [Mass/Vol]on 06-15-19 25 FOLIC ACID 11.1 ng/mL Normal >5.8 [facility] Comment on above: Result Comment: NEW REFERENCE RANGE Performed By: #### F EPR, 2276-4, 52583-7, TSHR, 2284-8, 2132-9, 3024-7, 2532-0 ####[facility] ([id number])[address] [place] [address]24 Glomerular basement membrane IgG Qn (S)on 06-14-2024 GBM IgG Ab <0.2 Normal <1.0 [facility] Comment on above: Performed By: #### [address], [place], [place], 84803-6, 37055-5 ####[facility] ([id number])[address] [place] [address], [address] [place] [address]72 HBV core Ab [place] Qlon 06-15-19 25 ANTI HBc Reactive Abnormal NRCT [facility] Comment on above: Result Comment: NEW TEST METHOD Performed By: #### C BCA, CMP, 55219-7, 2777-1, TSHR, 3024-7, 5196-1, 5193-8, 4679-7, 79776-1 ####[facility] ([id number])[address] [address] HBV surface Ab [place] Qnon 06-14 Anti HBs quant. <3.00 Normal [facility] Comment on above: Result Comment: NOTE Vaccinated: >=10.00 mIU/mL, Positive (Immune)Unvaccinated: <10.00 mIU/mL, Negative (Not Immune)Interpretive values have changed due to implementation of anew method. Values run higher than previous method. Performed By: #### C BCA, CMP, , 2776-04, TSHR, 3024-7, 5196-1, 5193-8, 4679-7, 83988-3 ####[facility] ([id number])[address] [address] HBV surface Ag IA Qlon 06-14 HEPATITIS B SURF AG Non-Reactive Normal NRCT Pro [facility] Comment on above: Result Comment: NEW TEST METHOD Performed By: #### C BCA, CMP, , 2776-04, TSHR, 3024-7, 5196-1, 5193-8, 4679-7, 15646-1 ####[facility] ([id number])[address] [address] HGBon 06-14-2024 Hematocrit (Bld) [Volume fraction] 21.1 % Low 35-47 [facility] Comment on above: Performed By: #### P INR, HH, ELEC, , 2776-04 ####[facility] ([id number])[address] [address] Hemoglobin (Bld) [Mass/Vol] 6.9 g/dL Critically low 11.7-15.5 [facility] Comment on above: Performed By: #### P INR, HH, ELEC, , 2776-04 ####[facility] ([id number])[address] [address] Haptoglobin Nephelometry [Ma ss/Vol]on 06-14-2024 HAPTOGLOBIN 84 mg/dL Normal 32-228 [facility] Comment on above: Performed By: #### F EPR, 2276-4, 97520-0, TSHR, 2284-8, 2132-9, 3024-7, 2532-0 ####[facility] ([id number])[address], [address] [place] [address] IRON PROFILEon 06-14-2024 Iron [Mass/Vol] 118 ug/dL Normal 50-170 [facility] Comment on above: Performed By: #### F EPR, 2276-4, 22856-2, TSHR, 2284-8, 2132-9, 3024-7, 2532-0 ####[facility] ([id number])[address], [address] [place] [address] IRON BINDING 272 ug/dL Normal 250-425 [facility] Comment on above: Performed By: #### F EPR, 2276-4, 12105-2, TSHR, 2284-8, 2132-9, 3024-7, 2532-0 ####[facility] ([id number])[address], [address] [place] [address] IRON SATURATION 43 % SATURATION Normal 15-50 [facility] Comment on above: Performed By: #### F EPR, 2276-4, 54715-6, TSHR, 2284-8, 2132-9, 3024-7, 2532-0 ####[facility] ([id number])[address], [address] [place] [address]781 LDH [Catalytic activity/Vol] on 06-14-2024 LDH 127 U/L Normal 100-235 [facility] Comment on above: Performed By: #### F EPR, 2276-4, 86117-0, TSHR, 2284-8, 2132-9, 3024-7, 2532-0 ####[facility] ([id number])[address], [address] [place] [address] LIVER PANELon 06-14-2024 Albumin [Mass/Vol] 3.2 g/dL Low 3.4-5.3 [facility] Comment on above: Performed By: #### Greer HERNANDEZ, LIVR ####[facility] ([id number])[address], [address], [place] [address] Performed By: #### [address], [place], SPE, 37490-9, 37131-1 ####[facility] ([id number])[address], [address], [place] [address] ALP [Catalytic activity/Vol] 110 U/L Normal 39-130 [facility] Comment on above: Performed By: #### Greer HERNANDEZ, LIVR ####[facility] ([id number])[address], [address], [place] [address] ALT [Catalytic activity/Vol] 4 U/L Normal 0-31 [facility] Comment on above: Performed By: #### Greer HERNANDEZ, LIVR ####[facility] ([id number])[address], [address] [place] [address], [place] [address] AST [Catalytic activity/Vol] 12 U/L Normal 0-41 [facility] Comment on above: Performed By: #### Greer HERNANDEZ, LIVR ####[facility] ([id number])[address] [address], [place] [address] Bilirubin [Mass/Vol] 0.8 mg/dL Normal 0.3-1.2 [facility] Comment on above: Performed By: #### Greer HERNANDEZ, LIVR ####[facility] ([id number])[address], [address], [place] [address] Bilirubin.direct [Mass/Vol] 0.4 mg/dL Normal 0.0-0.4 [facility] Comment on above: Performed By: #### Greer HERNANDEZ, LIVR ####[facility] ([id number])[address], [address] [place] [address]86 Protein [Mass/Vol] 5.7 g/dL Low 6.0-8.0 [facility] Comment on above: Performed By: #### B MP, LIVR ####[facility] ([id number])[address], [address] [place] [address] LOWER RESPIRATORY CULTUREon 06-14-2024 Bacteria identified Respiratory culture Nom (Sput) GRAM STAIN 0 WHITE BLOOD CELLS/LPF 0 SQUAMOUS EPITHELIAL CELLS/LPF 0 CILIATED EPITHELIAL CELLS/LPF NO ORGANISMS SEEN CULTURE RESULTS NORMAL ORAL JEET Normal [facility] Comment on above: Performed By: #### 6 24-7 ####[facility] ([id number])[address], [address] [place] [address] MAGNESIUMon 06-14-2024 Magnesium [Mass/Vol] 2.1 mg/dL Normal 1.8-2.6 [facility] Comment on above: Performed By: #### E LEC, , 2776-04 ####[facility] ([id number])[address] [address] Magnesium [Mass/Vol] 1.7 mg/dL Low 1.8-2.6 [facility] Comment on above: Performed By: #### P INR, HH, ELEC, , 2776-04 ####[facility] ([id number])[address] [address] [place] [address] Magnesium [Mass/Vol] 3.5 mg/dL High 1.8-2.6 [facility] Comment on above: Performed By: #### C BCA, CMP, , 2776-04, TSHR, 3024-7, 5196-1, 5193-8, 4679-7, 86370-4 ####[facility] ([id number])[address] [address] [place] [address] Magnesium Ionized ISE (Bld) [Moles/Vol]on 06-14-2024 Magnesium [Moles/Vol] 0.54 mmol/L Normal 0.45-0.74 Pr [facility] Comment on above: Result Comment: NEW REFERENCE RANGE Performed By: #### 7 3572-0 ####[facility] ([id number])[address] [address] Neutrophil cytoplasmic Ab pa victor hugo IF (S)on 06-14-2024 c-ANCA Negative Normal Negative [facility] Comment on above: Performed By: #### [address], SIFE, SPE, 16315-1, 32258-7 ####[facility] ([id number])[address] [address] p-ANCA Negative Normal Negative [facility] Comment on above: Result Comment: NOTE Negative for cANCA and pANCA patterns by immunofluorescence. ADDITIONAL INFORMATION This test was developed and its performance characteristicsdetermined by [facility] in a manner consistent with CLIArequirements. This test has not been cleared or approved bythe U.S. Food and Drug Administration.Test Performed by:[place] [id number] Director: Alan Boothe Ph.D.; CLIA# [id number] Performed By: #### [address], [place], [place], 99870-9, 02370-7 ####[facility] ([id number])[address] [address] Nuclear Ab IA Ql (S)on 06-14 MATY Screen w/reflex Negative Normal NEG [facility] Comment on above: Result Comment: Test ing performed using multiplex flowimmunoassay. Eleven different antigensassociated with systemic autoimmunediseases (dsDNA,Sm,Sm/MOLD BUILDER,MOLD BUILDER,Chromatin,SSA,SSB,Keesha-1,Scl70,Ribo P,Centromere B)are included in this screening test. Performed By: #### [address], [place], [place], 09288-5, 84410-4 ####[facility] ([id number])[address], [address] [place] [address], [place] [address] PHOSPHORUSon 06-14-2024 Phosphate [Mass/Vol] 5.1 mg/dL High 2.4-4.9 [facility] Comment on above: Performed By: #### E LEC, , 2776-04 ####[facility] ([id number])[address], [address] [place] [address] Phosphate [Mass/Vol] 6.2 mg/dL High 2.4-4.9 [facility] Comment on above: Performed By: #### P INR, HH, ELEC, , 2776-04 ####[facility] ([id number])[address] [address] [place] [address] Phosphate [Mass/Vol] 7.0 mg/dL High 2.4-4.9 [facility] Comment on above: Performed By: #### C BCA, CMP, , 2776-04, TSHR, 3024-7, 5196-1, 5193-8, 4679-7, 81071-2 ####[facility] ([id number])[address], [address] [place] [address]993 PROTEIN CREAT RATIOon 2024 RANDOM URINE PROTEIN 860 mg/L High <120 [facility] Comment on above: Performed By: #### U A, UPCR ####[facility] ([id number])[address], [address] [place] [address] U/PRO/MODULAR HOME CREW MEMBER RATIO CALC 2.20 High <0.2 [facility] Comment on above: Result Comment: Neph rotic Syndrome is associated with ratios >3.5 Performed By: #### U A, UPCR ####[facility] ([id number])[address], [address] [place] [address] URINE CREATININE,RDM 39.08 mg/dL Normal [facility] Comment on above: Performed By: #### U A, UPCR ####[facility] ([id number])[address], [address] [place] [address] PROTIME AND INRon 06-14-2024 PT Coag (PPP) [Time] 17.0 s High 9.8-13.2 [facility] Comment on above: Performed By: #### P INR, 71421-5 ####[facility] ([id number])[address] [address] [place] [address]235 INR Coag (PPP) [Relative time] 1.5 {INR} High 0.9-1.2 [facility] Comment on above: Performed By: #### P INR, 44324-4 ####[facility] ([id number])[address] [address] [place] [address] Performed By: #### P INR, HH, ELEC, , 2777-1 ####[facility] ([id number])[address] [address] [place] [address] 59542 PT Coag (PPP) [Time] 16.7 s High 9.8-13.2 [facility] Comment on above: Performed By: #### P INR, HH, ELEC, , 277-1 ####[facility] ([id number])[address] [address] comment (Bld) [Interp]on 06-14-2024 STAFF REVIEW NOTE Normal [facility] Comment on above: Result Comment: [facility] [address] [place], [place] [address] Clinical Pathology ReportPatient Name:ORESTES ALVARES:1965 (Age:59)Gender:FTaken:06/14/2024Reported:06/19/2024Physician(s): Vernell Tracey To: Rec. #:[id number] Pathologic DiagnosisPeripheral smear review:- Marked macrocytic anemia [...] Outduvall/06/19/2024Jamar Hammond MDInterpretation performed at [facility], [address] [place] [address], License number: [id number].Clinical History___BLOOD SMEAR EVALUATIONCBC (06/14/20245): WBC: 4.8 x 109/L RBC: 2.31 x 1012/L Hgb: 7.6g/dL MCV: 102 fL RDW: 16.8 Platelets: 138 x 109/LAutomated differential: Neutrophils: 3.8 x 109/L Lymphs: 0.5 x109/L Monos: 0.4 x 109/L Eos: 0.0 x 109/L Basos: 0.0 x 109/LOther lab data: N/ABlood smear:WBC: NormalRBC: Marked macrocytic anemia with mild anisocytosisPlatelets: Borderline thrombocytopenia with small forms and no clumpsSpecimen(s) ReceivedBlood Smear ReviewFee Codes(s):1; 08629 Reticulocytes/100 RBC (Bld)o n 06-14-2024 RETICULOCYTE COUNT 2.2 % Normal 0.4-2.2 [facility] Comment on above: Performed By: #### C BCA, CMP, 69734-5, 2777-1, TSHR, 3024-7, 5196-1, 5193-8, 4679-7, 59120-0 ####[facility] ([id number])[address], [address] [place] [address]646 SERUM IMMUNOFIXATIONon 06-14 IgA [Mass/Vol] 568 mg/dL High 68-378 [facility] Comment on above: Performed By: #### [address], [place], [place], 81908-0, 92773-1 ####[facility] ([id number])[address], [address] [place] [address]019 IgG [Mass/Vol] 1039 mg/dL Normal 635-1741 [facility] Comment on above: Performed By: #### [address], [place], [place], 95516-9, 91375-9 ####[facility] ([id number])[address], [address] [place] [address] 66166 IgM [Mass/Vol] 162 mg/dL Normal 45-281 [facility] Comment on above: Performed By: #### [address], [place], [place], 44282-7, 74673-7 ####[facility] ([id number])[address], [address] [place] [address] IMMUNE PROFILE INTERP SEE SEPARATE REPORT Normal [facility] Comment on above: Performed By: #### [address], [place], [place], 84647-0, 54941-9 ####[facility] ([id number])[address], [address] [place] [address]47 SERUM PROTEIN ELECTROPHORESI Son 06-14-2024 ALPHA 1 GLOBULIN 0.4 g/dL Normal 0.1-0.4 [facility] Comment on above: Performed By: #### [address], [place], [place], 08800-9, 27365-0 ####[facility] ([id number])[address] [address] [place] [address] 28344 ALPHA 2 GLOBULIN 0.5 g/dL Normal 0.4-1.1 [facility] Comment on above: Performed By: #### C [address], [place], SPE, 65130-6, 70547-2 ####[facility] ([id number])[address] [address] [place] [address]44 BETA GLOBULIN 0.9 g/dL Normal 0.5-1.2 [facility] Comment on above: Performed By: #### [address], [place], SPE, 70484-3, 32724-7 ####[facility] ([id number])[address] [address] [place] [address]16 GAMMA GLOBULIN 1.0 g/dL Normal 0.5-1.6 [facility] Comment on above: Performed By: #### [address], [place], SPE, 34705-8, 64075-7 ####[facility] ([id number])[address] [address] PROT. ELECTROPHORESIS INTERP SEE SEPARATE REPORT Normal [facility] Comment on above: Performed By: #### C [address], [place], SPE, 05271-5, 34855-1 ####[facility] ([id number])[address] [address] Protein [Mass/Vol] 6.0 g/dL Normal 6.0-8.0 [facility] Comment on above: Performed By: #### C [address], SIFE, SPE, 12589-4, 30110-3 ####[facility] ([id number])[address] [address] TSH WITH REFLEXon 06-14-2024 TSH 14.30 uIU/mL High 0.49-4.67 [facility] Comment on above: Performed By: #### F EPR, 2276-4, 76920-4, TSHR, 2284-8, 2132-9, 3024-7, 2532-0 ####[facility] ([id number])[address], [address] [place] [address] TSH 13.51 uIU/mL High 0.49-4.67 [facility] Comment on above: Performed By: #### C BCA, CMP, 12485-2, 2777-1, TSHR, 3024-7, 5196-1, 5193-8, 4679-7, 46723-8 ####[facility] ([id number])[address], [address] [place] [address]21 URINALYSISon 06-14-2024 Bilirubin Ql (U) Negative Normal NEG [facility] Comment on above: Performed By: #### Piotr Alvarado, UPCR ####[facility] ([id number])[address], [address] [place] [address] 89252 BLOOD/HGB Large Abnormal NEG [facility] Comment on above: Performed By: #### Piotr Alvarado, UPCR ####[facility] ([id number])[address], [address] [place] [address]7521 Color (U) YELLOW Normal YELLOW [facility] Comment on above: Performed By: #### Piotr Alvarado, UPCR ####[facility] ([id number])[address], [address] [place] [address]359 Glucose Ql (U) Negative Normal NEG [facility] Comment on above: Performed By: #### Piotr Alvarado, UPCR ####[facility] ([id number])[address], [address] [place] [address]5949 Hyaline casts LM Ql (Urine sed) 10 /lpf High 0-2 [facility] Comment on above: Performed By: #### U Christiano, UPCR ####[facility] ([id number])[address], [address] [place] [address] Ketones Ql (U) Negative Normal NEG [facility] Comment on above: Performed By: #### Piotr Alvarado, UPCR ####[facility] ([id number])[address], [address] [place] [address] Leukocyte esterase Test strip Ql (U) Large Abnormal NEG [facility] Comment on above: Performed By: #### Piotr Alvarado, UPCR ####[facility] ([id number])[address], [address], [place] [address] MUCOUS PRESENT Abnormal NONE [facility] Comment on above: Performed By: #### Piotr Alvarado, UPCR ####[facility] ([id number])[address], [address], [place] [address] Nitrite Ql (U) Negative Normal NEG [facility] Comment on above: Performed By: #### Piotr Alvarado, UPCR ####[facility] ([id number])[address], [address], [place] [address] pH (U) 5.5 [pH] Normal 5.0-8.5 [facility] Comment on above: Performed By: #### Piotr Alvarado, UPCR ####[facility] ([id number])[address], [address], [place] [address] Protein Ql (U) 50 mg/dL Abnormal NEG [facility] Comment on above: Performed By: #### Piotr Alvarado, UPCR ####[facility] ([id number])[address], [address] [place] [address] R.B.CELLS 140 /hpf High 0-5 [facility] Comment on above: Performed By: #### Piotr Alvarado, UPCR ####[facility] ([id number])[address], [address] [place] [address] Specific gravity (U) [Rel density] 1.011 Normal 1.003-1.03 5 [facility] Comment on above: Performed By: #### U A, UPCR ####[facility] ([id number])[address] [address] [place] [address]49 SQUAMOUS EPITHELIUM 2 /hpf Normal 0-5 [facility] Comment on above: Performed By: #### U A, UPCR ####[facility] ([id number])[address] [address] [place] [address] TRANSITIONAL EPITH <1 High 0 [facility] Comment on above: Performed By: #### U A, UPCR ####[facility] ([id number])[address] [address] TURBIDITY HAZY Abnormal CLEAR [facility] Comment on above: Performed By: #### U A, UPCR ####[facility] ([id number])[address] [address] Urinalysis dipstick W Reflex Microscopic panel (U) URINE RECEIVED WITHOUT PRESERVATIVE-DELAYS IN TRANSPORT MAY AFFECT RESULTS.INTERPRET WITH CAUTION AND CLINICAL CORRELATION IS RECOMMENDED. Normal [facility] Comment on above: Performed By: #### U A, UPCR ####[facility] ([id number])[address] [address] [place] [address] 46450 Urobilinogen (U) [Mass/Vol] mg/dL Normal <1.1 [facility] Comment on above: Performed By: #### U A, UPCR ####[facility] ([id number])[address] [address] W.B.CELLS 69 /hpf High 0-5 [facility] Comment on above: Performed By: #### U A, UPCR ####[facility] ([id number])[address] [address] URINE CULTUREon 06-14-2024 Bacteria identified Cx Nom (U) SPECIMEN NOTES URINE RECEIVED WITHOUT PRESERVATIVE CULTURE RESULTS NO GROWTH AT <1000 CFU/mL Normal [facility] Comment on above: Performed By: #### 6 30-4 ####[facility] ([id number])[address] [facility], [place] [address] URINE PROTEIN ELECTROPHORESI Son 06-14-2024 UPREL INTERP SEE SEPARATE REPORT Normal Pro [facility] US RETROPERITONEAL COMPLETEo n 06-14-2024 US RETROPERITONEAL COMPLETE Normal [facility] VENOUS BLOOD GASon ROBERT'S TEST Normal [facility] Comment on above: Performed By: #### V BG ####[facility] ([id number])[address] [place] [address] BASE,DEFICIT 9.0 MMOL/L High 0.0-2.0 [facility] Comment on above: Performed By: #### V BG ####[facility] ([id number])[address] [place] [address] Body temperature 98.6 [degF] Normal 37.0 [facility] Comment on above: Performed By: #### V BG ####[facility] ([id number])[address] [place] [address] HCO3 (Bld) [Moles/Vol] 19.9 mmol/L Low 20.0-24.0 P [facility] Comment on above: Performed By: #### V BG ####[facility] ([id number])[address] [place] [address] INSP. O2 CONC. 100 % Normal [facility] Comment on above: Performed By: #### V BG ####[facility] ([id number])[address] [place] [address] Oxygen saturation in Blood 91.0 % Normal >80.0 [facility] Comment on above: Performed By: #### V BG ####[facility] ([id number])[address] [facility] [place] [address] OXYGEN SOURCE Vent Normal [facility] Comment on above: Performed By: #### V BG ####[facility] ([id number])[address] [place] [address] PCO2, VENOUS 56.6 MMHG High 35-50 [facility] Comment on above: Performed By: #### V BG ####[facility] ([id number])[address] [facility] [place] [address] PH, VENOUS 7.154 Low 7.320-7.42 0 [facility] Comment on above: Performed By: #### V BG ####[facility] ([id number])[address] [facility] [place] [address] PO2, VENOUS 78 MMHG High 30-50 [facility] Comment on above: Performed By: #### V BG ####[facility] ([id number])[address] [place] [address] SAMPLE SITE N/A Normal [facility] Comment on above: Performed By: #### V BG ####[facility] ([id number])[address] [place] [address] SAMPLE TYPE VENOUS Normal [facility] Comment on above: Performed By: #### V BG ####[facility] ([id number])[address] [place] [address] VITAMIN B12on 06-14-2024 Cobalamin (Vitamin B12) [Mass/Vol] 1093 pg/mL High 180-914 [facility] Comment on above: Performed By: #### F EPR, 2276-4, 89891-0, TSHR, 2284-8, 2132-9, 3024-7, 2532-0 ####[facility] ([id number])[address] [facility], [address] [place] [address] 53687 XR CHEST 1 VWon 06-14-2024 XR CHEST 1 VW Normal [facility] XR CHEST 1 VW Normal [facility] aPTT Coag (PPP) [Time]on aPTT Coag (Bld) [Time] 45 s High 26-37 Pr [facility] Comment on above: Performed By: #### P INR, 95925-9 ####[facility] ([id number])[address], [address] [place] [address] 01698 BLOOD CULTUREon 06-13-2024 Bacteria identified Aer cx Nom (Bld) Normal [facility] Comment on above: Performed By: #### 1 7928-3 ####[facility] ([id number])[address], [address] [place] [address] 23221 Bacteria identified Aer cx Nom (Bld) SPECIMEN NOTES SUBOPTIMAL VOLUME OF BLOOD COLLECTED, RESULTS MAY BE AFFECTED. CULTURE RESULTS NO GROWTH 5 DAYS Normal [facility] Comment on above: Performed By: #### 1 7928-3 ####[facility] ([id number])[address], [address] [place] [address] CBC AND AUTO DIFFon 06-14-19 25 ABSOLUTE BASOPHIL 0.0 X10E9/L Normal 0.0-0.2 [facility] Comment on above: Performed By: #### C BCA, CMP, 11702-7, 2777-1, 36878-6, 99002-2, PINR, 09680-1 ####[facility] ([id number])[address], [address] [place] [address] ABSOLUTE NEUTROPHIL 3.7 X10E9/L Normal 1.5-6.6 [facility] Comment on above: Performed By: #### C BCA, CMP, 12631-8, 2777-1, 17677-6, 84007-0, PINR, 39849-3 ####[facility] ([id number])[address], [address], [place] [address] Basophils/100 WBC (Bld) 0.3 % Normal [facility] Comment on above: Performed By: #### C BCA, CMP, 05852-2, 2777-1, 72431-3, 33168-6, PINR, 90049-0 ####[facility] ([id number])[address], [address], [place] [address] Eosinophils (Bld) [#/Vol] 0.0 10*3/uL Normal 0.0-0.4 [facility] Comment on above: Performed By: #### C BCA, CMP, 54304-7, 2777-1, 56940-3, 30581-2, PINR, 09866-6 ####[facility] ([id number])[address] [address], [place] [address] Eosinophils/100 WBC (Bld) 0.2 % Normal [facility] Comment on above: Performed By: #### C BCA, CMP, 25671-3, 2777-1, 10046-1, 56417-1, PINR, 25587-6 ####[facility] ([id number])[address] [address] [place] [address] Erythrocyte distribution width (RBC) [Ratio] 16.8 % High 11.5-15.0 [facility] Comment on above: Performed By: #### C BCA, CMP, 98164-9, 2777-1, 60800-6, 67552-9, PINR, 36948-8 ####[facility] ([id number])[address] [address] [place] [address] Hematocrit (Bld) [Volume fraction] 24.9 % Low 35-47 [facility] Comment on above: Performed By: #### C BCA, CMP, 27344-0, 2777-1, 74764-7, 43836-5, PINR, 36958-4 ####[facility] ([id number])[address], [address], [place] [address] Hemoglobin (Bld) [Mass/Vol] 8.2 g/dL Low 11.7-15.5 [facility] Comment on above: Performed By: #### C BCA, CMP, 97089-1, 2777-1, 89753-5, 49744-5, PINR, 93825-2 ####[facility] ([id number])[address], [address], [place] [address] Lymphocytes (Bld) [#/Vol] 0.4 10*3/uL Low 1.0-3.5 [facility] Comment on above: Performed By: #### C BCA, CMP, 75449-5, 2777-1, 36523-7, 70189-4, PINR, 51383-5 ####[facility] ([id number])[address], [address] [place] [address] 13933 Lymphocytes/100 WBC (Bld) 9.4 % Normal [facility] Comment on above: Performed By: #### C BCA, CMP, 00957-2, 2777-1, 24175-9, 07953-9, PINR, 50950-4 ####[facility] ([id number])[address], [address], [place] [address] MCH (RBC) [Entitic mass] 33.0 pg Normal 27-34 [facility] Comment on above: Performed By: #### C BCA, CMP, 58962-7, 2777-1, 57433-1, 99965-8, PINR, 98211-1 ####[facility] ([id number])[address], [address], [place] [address] MCHC (RBC) [Mass/Vol] 32.8 g/dL Normal 32-36 [facility] Comment on above: Performed By: #### C BCA, CMP, 88276-3, 2777-1, 15389-8, 22399-1, PINR, 46945-6 ####[facility] ([id number])[address], [address], [place] [address] MCV (RBC) [Entitic vol] 101 fL High 80-100 P [facility] Comment on above: Performed By: #### C BCA, CMP, 91427-6, 2777-1, 90091-9, 79064-9, PINR, 05785-8 ####[facility] ([id number])[address], [address], [place] [address] Monocytes (Bld) [#/Vol] 0.5 10*3/uL Normal 0-0.9 [facility] Comment on above: Performed By: #### C BCA, CMP, 81175-3, 2777-1, 62032-0, 08179-3, PINR, 21739-8 ####[facility] ([id number])[address], [address], [place] [address] Monocytes/100 WBC (Bld) 10.9 % Normal [facility] Comment on above: Performed By: #### C BCA, CMP, 20524-5, 2777-1, 14987-8, 57305-4, PINR, 66438-8 ####[facility] ([id number])[address], [address], [place] [address] Neutrophils/100 WBC (Bld) 79.2 % Normal [facility] Comment on above: Performed By: #### C BCA, CMP, 96997-1, 2777-1, 66255-2, 78176-6, PINR, 39503-0 ####[facility] ([id number])[address], [address], [place] [address] Platelet mean volume (Bld) [Entitic vol] 7.2 fL Normal 7-12 [facility] Comment on above: Performed By: #### C BCA, CMP, 20310-7, 2777-1, 11648-9, 04355-7, PINR, 89703-1 ####[facility] ([id number])[address], [address] [place] [address] Platelets (Bld) [#/Vol] 149 10*3/uL Low 150-450 [facility] Comment on above: Performed By: #### C BCA, CMP, 85908-3, 2777-1, 04652-3, 68193-8, PINR, 47213-9 ####[facility] ([id number])[address] [address] [place] [address] RBC COUNT 2.48 X10E12/L Low 3.80-5.20 [facility] Comment on above: Performed By: #### C BCA, CMP, 01937-9, 2777-1, 65276-1, 38333-4, PINR, 17599-3 ####[facility] ([id number])[address] [address] [place] [address] WBC (Bld) [#/Vol] 4.7 10*3/uL Normal 4.0-11.0 [facility] Comment on above: Performed By: #### C BCA, CMP, 24648-1, 2777-1, 25470-0, 44781-7, PINR, 61988-9 ####[facility] ([id number])[address], [address] [place] [address] COMPREHENSIVE METABOLIC PANE Kael 06-13-2024 Albumin [Mass/Vol] 3.4 g/dL Normal 3.2-5.3 [facility] Comment on above: Performed By: #### C BCA, CMP, 68365-3, 2777-1, 32436-8, 51100-7, PINR, 17697-2 ####[facility] ([id number])[address], [address], [place] [address] ALP [Catalytic activity/Vol] 139 U/L High 39-130 [facility] Comment on above: Performed By: #### C BCA, CMP, 05223-9, 2777-1, 52254-4, 59105-5, PINR, 60520-5 ####[facility] ([id number])[address], [address], [place] [address] ALT [Catalytic activity/Vol] 4 U/L Normal 0-31 [facility] Comment on above: Performed By: #### C BCA, CMP, 78815-4, 2777-1, 83670-1, 46312-7, PINR, 57332-0 ####[facility] ([id number])[address], [address] [place] [address] Anion gap [Moles/Vol] 12 mmol/L Normal 5-15 [facility] Comment on above: Performed By: #### C BCA, CMP, 36387-2, 2777-1, 76073-5, 95606-1, PINR, 95612-9 ####[facility] ([id number])[address], [address], [place] [address] AST [Catalytic activity/Vol] 15 U/L Normal 0-41 [facility] Comment on above: Performed By: #### C BCA, CMP, 02866-7, 2777-1, 04251-5, 18736-1, PINR, 35149-0 ####[facility] ([id number])[address], [address] [place] [address] Bilirubin [Mass/Vol] 0.9 mg/dL Normal 0.3-1.2 [facility] Comment on above: Performed By: #### C BCA, CMP, 64611-7, 2777-1, 48878-8, 59861-8, PINR, 14915-9 ####[facility] ([id number])[address], [address], [place] [address] Calcium [Mass/Vol] 8.2 mg/dL Low 8.5-10.5 [facility] Comment on above: Performed By: #### C BCA, CMP, 05084-8, 2777-1, 46654-0, 38936-0, PINR, 69227-7 ####[facility] ([id number])[address], [address], [place] [address] Chloride [Moles/Vol] 99 mmol/L Normal 98-109 [facility] Comment on above: Performed By: #### C BCA, CMP, 69161-6, 2777-1, 52499-3, 30975-2, PINR, 33761-8 ####[facility] ([id number])[address] [address], [place] [address] CO2 [Moles/Vol] 20 mmol/L Low 22-32 [facility] Comment on above: Performed By: #### C BCA, CMP, 13903-8, 2777-1, 74014-2, 91204-4, PINR, 29517-4 ####[facility] ([id number])[address] [address] [place] [address] Creatinine [Mass/Vol] 3.34 mg/dL High 0.40-1.00 [facility] Comment on above: Result Comment: METH OD TRACEABLE TO IDMS STANDARD Performed By: #### C BCA, CMP, 81731-8, 2777-1, 32860-1, 03165-3, PINR, 83096-8 ####[facility] ([id number])[address] [address] GFR/1.73 sq M.predicted among non-blacks MDRD (S/P/Bld) [Vol rate/Area] 15 mL/min/{1.73_m2} Low >59 [facility] Comment on above: Result Comment: Repo rted eGFR is based on theCKD-EPI 2020 equation that doesnot use a race coefficient. Performed By: #### C BCA, CMP, 60277-9, 2777-1, 64765-4, 44880-6, PINR, 43080-4 ####[facility] ([id number])[address], [address], [place] [address] Glucose [Mass/Vol] 85 mg/dL Normal 65-99 [facility] Comment on above: Performed By: #### C BCA, CMP, 44514-8, 2777-1, 29296-8, 47694-3, PINR, 25364-8 ####[facility] ([id number])[address] [address], [place] [address] Potassium [Moles/Vol] 4.8 mmol/L Normal 3.5-5.0 [facility] Comment on above: Performed By: #### C BCA, CMP, 49399-0, 2777-1, 55334-1, 27480-2, PINR, 82072-1 ####[facility] ([id number])[address] [address], [place] [address] Protein [Mass/Vol] 6.3 g/dL Normal 6.0-8.0 [facility] Comment on above: Performed By: #### C BCA, CMP, 32854-0, 2777-1, 98280-5, 71285-1, PINR, 28523-4 ####[facility] ([id number])[address] [address], [place] [address] Sodium [Moles/Vol] 131 mmol/L Low 134-146 [facility] Comment on above: Performed By: #### C BCA, CMP, 15232-3, 2777-1, 45165-8, 09833-7, PINR, 12429-6 ####[facility] ([id number])[address] [address], [place] [address] Urea nitrogen [Mass/Vol] 43 mg/dL High 5-27 [facility] Comment on above: Performed By: #### C BCA, CMP, 35759-6, 2777-1, 88698-8, 70030-0, PINR, 52000-0 ####[facility] ([id number])[address] [facility], [place] [address] Glucose Glucometer (BldC) [M ass/Vol]on 06-13-2024 Glucose [Mass/Vol] 88 mg/dL Normal 65-99 [facility] - Chemistry and C hemistry - challengeon 06-13-2024 HCO3 (Bld) [Moles/Vol] 19.8 mmol/L Low 22.0-26.0 [facility] Ammonia (P) [Moles/Vol] 59 umol/L Critically high 11-32 [facility] Comment on above: RESULTS CALLED TO braxton brink rn @BY Delmi Quiles [id number] Amylase [Catalytic activity/Vol] 39 U/L 25-115 [facility] Lactate [Moles/Vol] 1.1 mmol/L 0.4-2.0 [facility] Lipase [Catalytic activity/Vol] 36.0 U/L 16.0-77.0 [facility] Magnesium [Mass/Vol] 1.0 mg/dL Low 1.8-2.4 [facility] T4 [Mass/Vol] 2.20 ug/dL Low 4.80-13.90 [facility] TSH Qn 13.271 m[IU]/L High 0.358-3.74 0 [facility] Laboratory - Microbiology an d Antimicrobial susceptibilityon 06-13-2024 SARS-CoV-2 (COVID-19) RNA YVONNE+probe Ql (Unsp spec) Negative NEGATIVE [facility] Comment on above: This test has not be en FDA cleared or approved, but has beenauthorized by the FDA under an Emergency Use Authorization(EUA) for use by authorized laboratories certified underCLIA that meet the requirements to perform moderate [...] 06-13-2024 LACTATE W/REFLEX 0.8 mmol/L Normal 0.4-2.0 [facility] Comment on above: Result Comment: Resu lt did not trigger repeat Lactate,re-order if needed. Performed By: #### C RENA THEODORE, 48910-4, 2777-1, 46642-4, 51887-5, PINR, 30856-6 ####[facility] ([id number])[address], [address] [place] [address] MAGNESIUMon 06-13-2024 Magnesium [Mass/Vol] 1.0 mg/dL Low 1.8-2.6 [facility] Comment on above: Performed By: #### C RENA THEODORE, 71359-2, 2777-1, 65740-4, 18552-6, PINR, 14057-9 ####[facility] ([id number])[address], [address] [place] [address]60 MRSA PCR NASALon 06-13-2024 MRSA DNA YVONNE+probe Ql (Unsp spec) Positive Abnormal NEG [facility] Comment on above: Performed By: #### 3 5492-8 ####[facility] ([id number])[address], [address] [place] [address] Natriuretic peptide B [Mass/ Vol]on 06-13-2024 Natriuretic peptide B (Bld) [Mass/Vol] 1765 pg/mL High <100.0 [facility] Comment on above: Performed By: #### C BCA, CMP, 23090-4, 2777-1, 74523-7, 21603-5, PINR, 43716-1 ####[facility] ([id number])[address] [facility], [address] [place] [address] No Panel Informationon 06-13 Robert Test Positive POSITIVE [facility] Arterial Blood Base Excess -8.6 mmol/L Low <2.0-2.0 [facility] Arterial Blood Oxygen Saturation 99.5 % [facility] Arterial Blood Partial Pressure CO2 53.0 mm[Hg] Critically high 35.0-45.0 [facility] Comment on above: RESULTS CALLED TO BRITTANEY PACHECO RN Arterial Blood Partial Pressure O2 120.0 mm[Hg] High 80.0-100.0 [facility] Arterial Blood pH 7.181 Critically low 7.350-7. 45 0 [facility] Comment on above: RESULTS CALLED TO BRITTANEY PACHECO RN Blood Gas Mode BiPAP 16 [facility] Blood Gas Sample Site RR Fir [facility] Blood Gas Set Respiration Rate 12 [facility] Blood Gas Tidal Volume 466 Fi [facility] Blood Gas Ventilator Mode ST [facility] FiO2 35 % [facility] Oxygen Delivery Device BIPAP [facility] Reference Lab Test #2 Result 9.3 [facility] Troponin I High Sensitivity 78.0 pg/mL Critically high 4.0-51.3 [facility] Comment on above: RESULTS CALLED TO NELI BRINK RNCUT-OFF POINTS HAVE BEEN ESTABLISHED BASED [...] CLINICAL INFORMATION. Blood Gas Liter Flow 3 [facility] Venous Blood Partial Pressure CO2 51.2 mm[Hg] 40.0-52.0 [facility] Venous Blood pH 7.172 Low 7.330-7.43 0 [facility] Bedside Influenza Type A Antigen Negative [facility] Comment on above: Negative for Flu A p rotein antigen. Infection due to Flu Acannot be ruled out. Flu A antigen in the sample may bebelow the detection limit of the test. Bedside Influenza Type B Antigen Negative [facility] Comment on above: Negative for Flu B p rotein antigen. Infection due to Flu Bcannot be ruled out. Flu B antigen in the sample may bebelow the detection limit of the test. RSV RNA Qual (PCR)([facility]) Not detected NOT DETECTE [facility] PHOSPHORUSon 06-13-2024 Phosphate [Mass/Vol] 6.8 mg/dL High 2.4-4.9 [facility] Comment on above: Performed By: #### C EWEILNA CMP, 64979-1, 2777-1, 34203-0, 64869-6, PINR, 09859-4 ####[facility] ([id number])[address], [address] [place] [address] 21077 PROTIME AND INRon 06-13-2024 INR Coag (PPP) [Relative time] 1.4 {INR} High 0.9-1.2 [facility] Comment on above: Performed By: #### C EWELINA, CMP, 79947-7, 2777-1, 63859-9, 05677-8, PINR, 79376-5 ####[facility] ([id number])[address], [address] [place] [address] 70453 PT Coag (PPP) [Time] 16.3 s High 9.8-13.2 [facility] Comment on above: Performed By: #### C BCA, CMP, 25654-1, 2777-1, 74159-2, 62410-2, PINR, 00044-2 ####[facility] ([id number])[address], [address], [place] [address] Procalcitonin IA [Mass/Vol]o n 06-13-2024 PROCALCITONIN 0.22 ng/mL High <0.05 [facility] Comment on above: Result Comment: NOTE <0.50 ng/mL - Low risk of severe sepsis and/or septic shock.<2.00 ng/mL - Recommend retesting within 6-24 hours.>2.00 ng/mL - High risk of sepsis and/or septic shock. Performed By: #### C BCA, CMP, 34964-8, 2777-1, 92240-1, 43843-7, PINR, 10348-1 ####[facility] ([id number])[address], [address] [place] [address]321 RESP PATHOGENS/VLYC-CwC-0es 06-13-2024 Respiratory pathogens DNA and RNA panel YVONNE+non-probe (Nph) Normal [facility] Comment on above: Performed By: #### 8 2159-5 ####[facility] ([id number])[address], [address] [place] [address] Troponin I.cardiac High sens itivity method [Mass/Vol]on 06-13-2024 1 HOUR TROP I, HIGH SENSITIVITY 58 ng/L High <16 [facility] Comment on above: Result Comment: Elev ations of hs-Troponin may be due to causesother than myocardial ischemia.Recommend serial hs-Troponin testing be performed.For the initial evaluation and management of chestpain patients, refer to the algorithms linked below.Emergency Patient:[email or web address]:[email or web address] Performed By: #### 8 9579-7 ####[facility] ([id number])[address], [address] [place] [address] 41417 TROPONIN I, HIGH SENSITIVITY 61 ng/L High <16 [facility] Comment on above: Result Comment: Elev ations of hs-Troponin may be due to causesother than myocardial ischemia.Recommend serial hs-Troponin testing be performed.For the initial evaluation and management of chestpain patients, refer to the algorithms linked below.Emergency Patient:[email or web address]:[email or web address] Performed By: #### 8 9579-7 ####[facility] ([id number])[address] [facility], [address], [place] [address] VENOUS BLOOD GASon 5 ROBERT'S TEST Normal [facility] Comment on above: Performed By: #### V BG ####[facility] ([id number])[address] [place] [address] BASE,DEFICIT 8.0 MMOL/L High 0.0-2.0 [facility] Comment on above: Performed By: #### V BG ####[facility] ([id number])[address] [place] [address] Body temperature 98.6 [degF] Normal 37.0 [facility] Comment on above: Performed By: #### V BG ####[facility] ([id number])[address] [place] [address] HCO3 (Bld) [Moles/Vol] 21.2 mmol/L Normal 20.0-24.0 [facility] Comment on above: Performed By: #### V BG ####[facility] ([id number])[address] [place] [address] INSP. O2 CONC. 40 % Normal [facility] Comment on above: Performed By: #### V BG ####[facility] ([id number])[address] [place] [address] Oxygen saturation in Blood 62.0 % Low >80.0 [facility] Comment on above: Performed By: #### V BG ####[facility] ([id number])[address] [place] [address] OXYGEN SOURCE NC Normal [facility] Comment on above: Performed By: #### V BG ####[facility] ([id number])[address] [place] [address] PCO2, VENOUS 62.5 MMHG High 35-50 [facility] Comment on above: Performed By: #### V BG ####[facility] ([id number])[address] [place] [address] PH, VENOUS 7.139 Low 7.320-7.42 0 [facility] Comment on above: Performed By: #### V BG ####[facility] ([id number])[address] [place] [address] PO2, VENOUS 42 MMHG Normal 30-50 [facility] Comment on above: Performed By: #### V BG ####[facility] ([id number])[address] [place] [address] SAMPLE SITE N/A Normal [facility] Comment on above: Performed By: #### V BG ####[facility] ([id number])[address] [place] [address] SAMPLE TYPE VENOUS Normal [facility] Comment on above: Performed By: #### V BG ####[facility] ([id number])[address] [place] [address] XR CHEST 1 VWon 06-13-2024 XR CHEST 1 VW Normal [facility] Basophils Auto (Bld) [#/Vol] on 06-12-2024 Basophils (Bld) [#/Vol] Automated basophil count 0.0-0.1 [facility] Basophils/100 WBC Auto (Bld) on 06-12-2024 Basophils/100 WBC (Bld) Automated basophil % 0. 2-2.0 [facility] Eosinophils/100 WBC Auto (Bl d)on 06-12-2024 Eosinophils/100 WBC (Bld) Automated eosinophil % Low 0.9-7.0 [facility] Erythrocyte distribution wid th Auto (RBC) [Ratio]on 06-12-2024 Erythrocyte distribution width (RBC) [Ratio] Erythrocyte distribution width [Ratio] by Automated count High 11.0-15.0 [facility] Estimated glomerular filtrat ion rate (GFR) non- Americanon 06-12-2024 GFR/1.73 sq M.predicted among non-blacks MDRD (S/P/Bld) [Vol rate/Area] Estimated glomerular filtration rate (GFR) non- Low >=60 mL/min/1.7 3m 2 [facility] Globulin Calc (S) [Mass/Vol] on 06-12-2024 Globulin (S) [Mass/Vol] Serum globulin measurement by calculation (mass/volume) [facility] Hematocrit Auto (Bld) [Volum e fraction]on 06-12-2024 Hematocrit (Bld) [Volume fraction] Hematocrit [Volume Fraction] of Blood by Automated count Low 36.0-48.0 [facility] Hemoglobin [Mass/volume] in Bloodon 06-12-2024 Hemoglobin (Bld) [Mass/Vol] Hemoglobin [Mass/volume] in Blood Low 12.0-16.0 [facility] INR in Platelet poor plasma by Coagulation assayon 06-12-2024 INR Coag (PPP) [Relative time] INR in Platelet poor plasma by Coagulation assay [facility] Comment on above: DESIRED INR:2.0-3.0 CONDITIONS NOT LISTED BELOW2.5-3.5 FOR PROSTHETIC HEART VALVE REPLACEMENT2.5-3.5 RECURRENT THROMBOSIS Laboratory - Chemistry and C hemistry - challengeon 06-12-2024 Albumin [Mass/Vol] 2.7 g/dL Low 3.4-5.[address] [facility] ALP [Catalytic activity/Vol] 170 U/L High 46-116 [facility] ALT [Catalytic activity/Vol] 11 U/L Low 14-59 [facility] AST [Catalytic activity/Vol] 20 U/L 15-37 [facility] Bilirubin [Mass/Vol] 0.6 mg/dL 0.2-1.0 [facility] Calcium [Mass/Vol] 8.2 mg/dL Low 8.5-10.[address] [facility] Chloride [Moles/Vol] 96 mmol/L Low 98-107 [facility] CO2 [Moles/Vol] 18.4 mmol/L Low 21.0-32.0 [facility] Creatinine [Mass/Vol] 3.36 mg/dL High 0.55-1.02 [facility] GFR/1.73 sq M.predicted MDRD (S/P/Bld) [Vol rate/Area] 17 mL/min/{1.73_m2} Low >=60 mL/min/1.7 3m 2 [facility] Glucose [Mass/Vol] 68 mg/dL Low 74-[address] [facility] Lactate [Moles/Vol] 2.4 mmol/L Critically high 0.4-2.0 [facility] Comment on above: RESULTS CALLED TO ORVILLE SOTO RN at 2014 Natriuretic peptide B (Bld) [Mass/Vol] pg/mL Critically high <=900.0 [facility] Comment on above: RESULTS CALLED TO NIKOS SYED NP at 2021 Potassium [Moles/Vol] 4.8 mmol/L 3.5-5.1 [facility] Protein [Mass/Vol] 6.9 g/dL 6.4-8.[address] [facility] Sodium [Moles/Vol] 128 mmol/L Low 136-[address] [facility] Urea nitrogen [Mass/Vol] 39.0 mg/dL High 7.0-18.0 [facility] Urea nitrogen/Creatinine [Mass ratio] 11.6 mg/mg [facility] Bilirubin Ql (U) Negative NEGATIVE [facility] Glucose (U) [Mass/Vol] Negative NEGATIVE [facility] Ketones Ql (U) Negative NEGATIVE [facility] pH (U) 5.5 [pH] 5.0-9.0 [facility] Specific gravity (U) [Rel density] 1.025 1.005-1.02 5 [facility] Urobilinogen Qn (U) 0.2 {Pascale'U}/dL 0.2-1.0 [facility] Laboratory - Hematology and Cell countson 06-12-2024 Immature granulocytes/100 WBC (Bld) 1.1 % High 0.0-0.5 [facility] - Specimen inform ationon 06-12-2024 Appearance (U) SL CLOUDY CLEAR [facility] Color (U) YELLOW YELLOW [facility] Laboratory - Urinalysison Leukocyte esterase Test strip Ql (U) Negative NEGATIVE [facility] Mucus Ql (Urine sed) NONE SEEN NONE SEEN [facility] Nitrite Ql (U) Negative NEGATIVE [facility] Protein Ql (U) >=300 mg/dL Abnormal NEG/TRACE [facility] Leukocytes [#/volume] correc maxi for nucleated erythrocytes in Blood by Automated counon 06-12-2024 WBC corrected for nucl RBC Auto (Bld) [#/Vol] Leukocytes [#/volume] corrected for nucleated erythrocytes in Blood by Automated coun 4.0-11.0 [facility] Lymphocytes Auto (Bld) [#/Vo l]on 06-12-2024 Lymphocytes (Bld) [#/Vol] Lymphocytes [#/volume] in Blood by Automated count Low 1.2-3.8 [facility] Lymphocytes/100 WBC Auto (Bl d)on 06-12-2024 Lymphocytes/100 WBC (Bld) Lymphocytes/100 leukocytes in Blood by Automated count Low 20.5-60.0 [facility] MCH Auto (RBC) [Entitic mass ]on 06-12-2024 MCH (RBC) [Entitic mass] MCH [Entitic ma ss] by Automated count 26.7-34.0 [facility] MCHC Auto (RBC) [Mass/Vol]on 06-12-2024 MCHC (RBC) [Mass/Vol] MCHC [Mass/volume] by Automated count 29.9-35.2 [facility] MCV Auto (RBC) [Entitic vol] on 06-12-2024 MCV (RBC) [Entitic vol] MCV [Entitic vol ume] by Automated count High 81.0-99.0 [facility] [facility] Monocytes Auto (Bld) [#/Vol] on 06-12-2024 Monocytes (Bld) [#/Vol] Automated blood monocyte count 0.3-0.8 [facility] Monocytes/100 WBC Auto (Bld) on 06-12-2024 Monocytes/100 WBC (Bld) Automated monocyte % 1. 7-12.0 [facility] Neutrophils Auto (Bld) [#/Vo l]on 06-12-2024 Neutrophils (Bld) [#/Vol] Neutrophils [#/volume] in Blood by Automated count 1.4-6.5 [facility] Neutrophils/100 WBC Auto (Bl d)on 06-12-2024 Neutrophils/100 WBC (Bld) Automated neutrophil % High 43.0-75.0 [facility] No Panel Informationon 06-12 Ethyl Alcohol Level 33 mg/dL [facility] Comment on above: NOTE: 80 mg/dl is th e legal limit for a blood alcohol level Troponin I High Sensitivity 58.7 pg/mL Critically high 4.0-51.3 [facility] Comment on above: RESULTS CALLED TO NIKOS [...] Eosinophils # (Auto) 0.0 10 3/uL 0.0-0.7 [facility] Immature Granulocyte # (Auto) 0.06 10 3/uL High 0.00-0.03 [facility] Urine Bacteria MODERATE #/HPF Abnormal NONE SEEN [facility] Urine Microscopic Review YES [facility] Urine Occult Blood TRACE-I NEGATIVE [facility] Urine Other Casts NONE SEEN #/LPF NONE SEEN [facility] Urine Other Crystals None Seen #/HPF None Seen [facility] Urine RBC 0-2 #/HPF 0-2 [facility] Urine Squamous Epithelial Cells FEW #/LPF Abnormal NONE/RARE [facility] Urine WBC 2-5 #/HPF Abnormal NONE SEEN [facility] Platelet mean volume Auto (B ld) [Entitic vol]on 06-12-2024 Platelet mean volume (Bld) [Entitic vol] Platelet mean volume [Entitic volume] in Blood by Automated count Low 9.5-13.5 [facility] Platelets Auto (Bld) [#/Vol] on 06-12-2024 Platelets (Bld) [#/Vol] Platelets [#/vol ume] in Blood by Automated count 150-450 [facility] Prothrombin time (PT)on PT Coag (PPP) [Time] Prothrombin time (PT) High 9.0- 11.6 [facility] RBC Auto (Bld) [#/Vol]on RBC (Bld) [#/Vol] Erythrocytes [#/volu me] in Blood by Automated count Low 4.20-5.40 [facility] Serum or plasma albumin/glob ulin mass ratioon 06-12-2024 Albumin/Globulin [Mass ratio] Serum or plasma albumin/globulin mass ratio [facility] Serum or plasma anion gap de terminationon 06-12-2024 Anion gap [Moles/Vol] Serum or plasma an ion gap determination [facility] Urine Cultureon 06-12-2024 Bacteria identified Cx Nom (U) No Growth 2 Days PERFORMED BY: [place] [address] PATHOLOGIST DRINK WAITER SALLY RENNER M.D. Normal [facility] Comment on above: Performed By: #### C UU #### [address] Pathology study report docum entOrdered By: Maury Schafer on 02-22-2024 Pathology study [facility] Other Phone: Kael 02-19-2024 L ----- Specimen: [id number] Received: 02/20/24 Status: MARCELO Sanchez Num: [id number] Spec Type: Surgical Subm Dr: Cody Neves MD Tissues: A BREAST CORE NO CALCS (LEFT BREAST) Procedures: RAMYA/Caroline, Lilibeth/Micro L4 Age/ Patient Sex Location Account Attending Physician Orestes Alvares 59/F [facility] [id number] Katie Velasquez APRN, SPEC NUM: [id number] RECD: 02/20/24 STATUS: MARCELO SANCHEZ NUM: [id number] LYNDSEY: 02/19/[address]: Cody Neves MD ENTERED: 02/20/[address]: Kim,Lab Katie Velasquez APRN, SEO INTERN SPEC TYPE: Surgical DEPT: JUANIS PERES ENTERED BY: [id number] RECV BY: [id number] ORDERED: , Gross/Micro L4 ORDERED: , Gross/Micro [...] Time specimen placed in formalin: 1506 Specimen: [id number] Received: 02/20/24 Status: MARCELO Jethro Num: [id number] Spec Type: Surgical Subm Dr: Cody Neves MD Tissues: A BREAST CORE NO CALCS (LEFT BREAST) Procedures: , Gross/Micro L4 Patient: BrandonAndrea maldonadochristiano Palacios [id number] (Continued) Specimen: [id number] Received: 02/20/24 (Continued) Gross Description (Continued) Signed (signature on file) Maury Schafer MD 02/22/24 1036 Specimen: [id number] Received: 02/20/24 Status: MARCELO Sanchez Num: [id number] Spec Type: Surgical Subm Dr: Cody Neves MD Tissues: A BREAST CORE NO CALCS (LEFT BREAST) Procedures: Lilibeth DOVER/John L4 Patient: Orestes Alvares [id number] (Continued) Specimen: [id number] Received: 02/20/24 (Continued) Gross Description (Continued) Cold ischemic time: 2 minutes Total fixation time: 26 hours and 30 minutes (2, ns, [id number]) Microscopic Description Microscopic examination is performed. CPT Codes 45605 Specimen: [id number] Received: 02/20/24 Status: SARTHAKAdam Sanchez Num: [id number] Spec Type: Surgical Subm Dr: Cody Neves MD Tissues: A BREAST CORE NO CALCS (LEFT BREAST) Procedures: HE/Caroline, Gross/Micro L4 Patient: Orestes Alvares Suzanne [id number] (Continued) Signed (signature on file) Maury Schafer MD 02/22/24 1036 Normal [facility] Activated partial thrombopla stin time (aPTT) in platelet poor plasma by coagulation aOrdered By: Caden Jarrell on 03-15-2022 aPTT Coag (PPP) [Time] 30.8 s 25.1-36.5 [facility] Basophils Auto (Bld) [#/Vol] Ordered By: Caden Jarrell on 03-15-2022 Basophils (Bld) [#/Vol] 0.1 10*3/uL 0.0-0.2 [facility] Basophils/100 WBC Auto (Bld) Ordered By: Caden Jarrell on 03-15-2022 Basophils/100 WBC (Bld) 0.9 % . [facility] Creatine kinase [Enzymatic a ctivity/volume] in Serum or PlasmaOrdered By: Caden Jarrell on 03-15-2022 CK [Catalytic activity/Vol] 33 U/L 22-269 [facility] Creatinine and Glomerular fi ltration rate.predicted panel (S/P/Bld)Ordered By: Caden Jarrell on 03-15-2022 Creatinine [Mass/Vol] 1.34 mg/dL 0.44-1.03 [facility] Eosinophils Auto (Bld) [#/Vo l]Ordered By: Caden Jarrell on 03-15-2022 Eosinophils (Bld) [#/Vol] 0.0 10*3/uL 0.0-0.45 [facility] Eosinophils/100 WBC Auto (Bl d)Ordered By: Caden Jarrell on 03-15-2022 Eosinophils/100 WBC (Bld) 0.2 % . [facility] Erythrocyte distribution wid th Auto (RBC) [Ratio]Ordered By: Caden Jarrell on 03-15-2022 Erythrocyte distribution width (RBC) [Ratio] 13.6 % 11.9-15.3 [facility] Estimated glomerular filtrat ion rate (GFR) non- AmericanOrdered By: Caden Jarrell on 03-15-2022 GFR/1.73 sq M.predicted among non-blacks MDRD (S/P/Bld) [Vol rate/Area] 40 mL/Min [facility] Hematocrit Auto (Bld) [Volum e fraction]Ordered By: Caden Jarrell on 03-15-2022 Hematocrit (Bld) [Volume fraction] 31.6 % 34.0-46.4 [facility] Hemoglobin [Mass/volume] in BloodOrdered By: Caden Jarrell on 03-15-2022 Hemoglobin (Bld) [Mass/Vol] 11.0 g/dL 11.8-15.4 [facility] Laboratory - Chemistry and C hemistry - challengeOrdered By: Caden Jarrell on 03-15-2022 Natriuretic peptide B (Bld) [Mass/Vol] 1767.0 pg/mL 5-100 [facility] Laboratory - CoagulationOrde red By: Caden Jarrell on 03-15-2022 PT Coag (PPP) [Time] 13.2 s 9.0-12.9 [facility] Leukocytes [#/volume] correc maxi for nucleated erythrocytes in Blood by Automated counOrdered By: Caden Jarrell on 03-15-2022 WBC corrected for nucl RBC Auto (Bld) [#/Vol] 7.8 10*3/uL 3.8-11.6 [facility] Lymphocytes Auto (Bld) [#/Vo l]Ordered By: Caden Jarrell on 03-15-2022 Lymphocytes (Bld) [#/Vol] 0.8 10*3/uL 1.00-4.8 [facility] Lymphocytes/100 WBC Auto (Bl d)Ordered By: Caden Jarrell on 03-15-2022 Lymphocytes/100 WBC (Bld) 10.6 % . [facility] MCH Auto (RBC) [Entitic mass ]Ordered By: Caden Jarrell on 03-15-2022 MCH (RBC) [Entitic mass] 32.1 pg 24.7-34.3 [facility] MCHC Auto (RBC) [Mass/Vol]Or dered By: Caden Jarrell on 03-15-2022 MCHC (RBC) [Mass/Vol] 34.7 g/dL 32.0-35.0 [facility] MCV Auto (RBC) [Entitic vol] Ordered By: Caden Jarrell on 03-15-2022 MCV (RBC) [Entitic vol] 92.3 fL 80-100 [facility] Monocyte distribution width [Entitic volume] in Blood by AutomatedOrdered By: Caden Jarrell on 03-15-2022 Monocyte distribution width Auto (Bld) [Entitic vol] 19.45 % 0.00-20.00 [facility] Monocytes Auto (Bld) [#/Vol] Ordered By: Caden Jarrell on 03-15-2022 Monocytes (Bld) [#/Vol] 0.8 10*3/uL 0.0-0.8 [facility] Monocytes/100 WBC Auto (Bld) Ordered By: Caden Jarrell on 03-15-2022 Monocytes/100 WBC (Bld) 10.2 % . [facility] Neutrophils Auto (Bld) [#/Vo l]Ordered By: Caden Jarrell on 03-15-2022 Neutrophils (Bld) [#/Vol] 6.1 10*3/uL 1.8-7.7 [facility] Neutrophils/100 WBC Auto (Bl d)Ordered By: Caden Jarrell on 03-15-2022 Neutrophils/100 WBC (Bld) 78.1 % . [facility] No Panel InformationOrdered By: Caden Jarrell on 03-15-2022 Estimated GFR () 49 mL/Min [facility] Comment on above: GFR estimated refere nce range: According to KDOQI guidelines, <60 ml/min/1.73m2 is sufficient to diagnose a patient with chronic kidney disease. Pharmacy Creatinine Clearance (Chem 43.20 [facility] Nucleated erythrocytes [Pres ence] in Blood by Automated countOrdered By: Caden Jarrell on 03-15-2022 Nucleated RBC Auto Ql (Bld) 0.1 /100{WBC} 0-0.5 [facility] Platelet mean volume Auto (B ld) [Entitic vol]Ordered By: Caden Jarrell on 03-15-2022 Platelet mean volume (Bld) [Entitic vol] 7.1 fL 6.3-10.7 [facility] Platelet poor plasma interna tional normalized ratio (INR) by coagulation assay (relatOrdered By: Caden Jarrell on 03-15-2022 INR Coag (PPP) [Relative time] 1.2 {INR} [facility] Comment on above: INR Therapeutic [...] 03-15-2022 Platelets (Bld) [#/Vol] 277 10*3/uL 150-450 [facility] RBC Auto (Bld) [#/Vol]Ordere d By: Caden Jarrell on 03-15-2022 RBC (Bld) [#/Vol] 3.43 10*6/uL 3.60-5.00 [facility] Serum or plasma anion gap de terminationOrdered By: Caden Jarrell on 03-15-2022 Anion gap [Moles/Vol] 14.5 mmol/L 6.0-15.0 [facility] Serum or plasma calcium sigifredo urement (mass/volume)Ordered By: Caden Jarrell on 03-15-2022 Calcium [Mass/Vol] 9.3 mg/dL 8.2-10.[address] [facility] Serum or plasma chloride matti surement (moles/volume)Ordered By: Caden Jarrell on 03-15-2022 Chloride [Moles/Vol] 95 mmol/L 95-114 [facility] Serum or plasma creatine kin ase MB (CKMB)/total creatine kinase (CK) ratio by calculaOrdered By: Caden Jarrell on 03-15-2022 CK.MB Calc [Catalytic fraction] 5.1 % 0.00-2.50 [facility] Serum or plasma creatine kin ase MB measurement (mass/volume)Ordered By: Caden Jarrell on 03-15-2022 CK.MB [Mass/Vol] 1.7 ng/mL 0.6-6.3 [facility] Serum or plasma glucose sigifredo urement (mass/volume)Ordered By: Caden Jarrell on 03-15-2022 Glucose [Mass/Vol] 129 mg/dL 70-[address] [facility] Comment on above: ADA recommended refe rence rangeRandom Glucose Reference Range is dependent on time and content of last meal. Glucose of more than 200 mg/dL in a nonstressed, ambulatory subject supports the diagnosis of Diabetes Mellitus. Serum or plasma potassium me asurement (moles/volume)Ordered By: Caden Jarrell on 03-15-2022 Potassium [Moles/Vol] 3.4 mmol/L 3.5-5.1 [facility] Serum or plasma sodium measu rement (moles/volume)Ordered By: Caden Jarrell on 03-15-2022 Sodium [Moles/Vol] 129 mmol/L 136-[address] [facility] Serum or plasma total carbon dioxide measurement (moles/volume)Ordered By: Caden Jarrell on 03-15-2022 CO2 [Moles/Vol] 22.9 mmol/L 22.0-30.0 [facility] Serum or plasma urea nitroge n measurement (mass/volume)Ordered By: Caden Jarrell on 03-15-2022 Urea nitrogen [Mass/Vol] 14 mg/dL 9- [facility] Troponin I.cardiac [Mass/vol ume] in Serum or Plasma by High sensitivity methodOrdered By: Caden Jarrell on 03-15-2022 Troponin I.cardiac High sensitivity method [Mass/Vol] 24 pg/mL 0-15 [facility] WBC Auto (Bld) [#/Vol]Ordere d By: Caden Jarrell on 03-15-2022 WBC (Bld) [#/Vol] 7.8 10*3/uL 3.8-11.[address] [facility] CBC AUTO DIFFon 12-19-2021 BASO # 0.0 103/ul Normal 0.0-0.1 [facility] Comment on above: Performed By: #### H STROPN #### [facility] [address] [place] [address] Dr. Debra Blake Basophils/100 WBC (Bld) 0.5 % Normal 0.2-2.0 [facility] Comment on above: Performed By: #### H STROPN #### [facility] [address] [place] [address] Dr. Debra Blake EO # 0.1 103/ul Normal 0.0-0.7 [facility] Comment on above: Performed By: #### H STROPN #### [facility] [address] [place] [address] Dr. Debra Blake Eosinophils/100 WBC (Bld) 1.4 % Normal 0.9-7.0 [facility] Comment on above: Performed By: #### H STROPN #### [facility] [address] [place] [address] Dr. Debra Blake Erythrocyte distribution width (RBC) [Ratio] 14.1 % Normal 11.0-15.0 [facility] Comment on above: Performed By: #### H STROPN #### [facility] [address] [place] [address] Dr. Debra Blake Hematocrit (Bld) [Volume fraction] 26.2 % Critically low 36.0-48.0 [facility] Comment on above: Performed By: #### H STROPN #### [facility] [address] [place] [address] Dr. Debra Blake Hemoglobin (Bld) [Mass/Vol] 9.1 g/dL Critically low 12.0-16.0 [facility] Comment on above: Performed By: #### H STROPN #### [facility] [address] [place] [address] Dr. Debra Blake IG # 0.03 10e3/ul Normal 0.00-0.03 [facility] Comment on above: Performed By: #### H STROPN #### [facility] [address] [place] [address] Dr. Debra Blake IG % 0.4 % Normal 0.0-0.5 [facility] Comment on above: Performed By: #### H STROPN #### [facility] [address] [place] [address] Dr. Debra Blake LYMPH # 1.5 103/ul Normal 1.2-3.8 [facility] Comment on above: Performed By: #### H STROPN #### [facility] [address] [place] [address] Dr. Debra Blake Lymphocytes/100 WBC (Bld) 19.0 % Critically low 20.5-60.0 [facility] Comment on above: Performed By: #### H STROPN #### [facility] [address] [place] [address] Dr. Debra Blake MANUAL DIFF REQ NO Normal [facility] Comment on above: Performed By: #### H STROPN #### [facility] [address] [place] [address] Dr. Debra Blake MCH (RBC) [Entitic mass] 34.3 pg Critically high 26.7-3 4.0 [facility] Comment on above: Performed By: #### H STROPN #### [facility] [address] [place] [address] Dr. Debra Blake MCHC (RBC) [Mass/Vol] 34.7 g/dL Normal 29.9-35.2 [facility] Comment on above: Performed By: #### H STROPN #### [facility] [address] [place] [address] Dr. Debra Blake MCV (RBC) [Entitic vol] 98.9 fL Normal 81.0-99.0 [facility] Comment on above: Performed By: #### H STROPN #### [facility] [address] [place] [address] Dr. Debra Blake MONO # 0.8 103/ul Normal 0.3-0.8 [facility] Comment on above: Performed By: #### H STROPN #### [facility] [address] [place] [address] Dr. Debra Blake Monocytes/100 WBC (Bld) 10.0 % Normal 1.7-12.0 [facility] Comment on above: Performed By: #### H STROPN #### [facility] [address] [place] [address] Dr. Debra Blake NEUT # 5.5 103/ul Normal 1.4-6.5 [facility] Comment on above: Performed By: #### H STROPN #### [facility] [address] [place] [address] Dr. Debra Blake Neutrophils/100 WBC (Bld) 68.7 % Normal 43.0-75.0 [facility] Comment on above: Performed By: #### H STROPN #### [facility] [address] [place] [address] Dr. Debra Blake Platelet mean volume (Bld) [Entitic vol] 9.5 fL Normal 9.5-13.[address] [facility] Comment on above: Performed By: #### H STROPN #### [facility] [address] [place] [address] Dr. Debra Blake PLT 300 103/ul Normal 150-[address] [facility] Comment on above: Performed By: #### H STROPN #### [facility] [address] [place] [address] Dr. Debra Blake RBC 2.65 106/ul Critically low 4.20-5.[address] [facility] Comment on above: Performed By: #### H STROPN #### [facility] [address] [place] [address] Dr. Debra Blake WBC 8.1 103/ul Normal 4.0-11.[address] [facility] Comment on above: Performed By: #### H STROPN #### [facility] [address] [place] [address] Dr. Debra Blake Covid-19 PCR ([facility])on 12-09 SARS-CoV-2 (COVID-19) RNA YVONNE+probe Ql (Unsp spec) Not detected Normal NOT DETECTED [facility] Comment on above: Result Comment: When [...] for this test is supported by the [employer] of Health and Human Service's declaration that [...] used). Performed By: #### C VDTB #### [facility] [address] [place] [address] Dr. Debra Blake ER URINE PROFILEon 2 Bilirubin Ql (U) Negative Normal NEGATIVE [facility] Comment on above: Performed By: #### H STROPN #### [facility] [address] [place] [address] Dr. Debra Blake Clarity (U) CLEAR Normal CLEAR [facility] Comment on above: Performed By: #### H STROPN #### [facility] [address] [place] [address] Dr. Debra Blake Color (U) LT. YELLOW Normal YELLOW [facility] Comment on above: Performed By: #### H STROPN #### [facility] [address] [place] [address] Dr. Debra Blake ERUAHD A micrscopic examina tion will be performed if indicated. Normal [facility] Comment on above: Performed By: #### H STROPN #### [facility] [address] [place] [address] Dr. Debra Blake Glucose Ql (U) Negative Normal NEGATIVE [facility] Comment on above: Performed By: #### H STROPN #### [facility] [address] [place] [address] Dr. Debra Blake Hemoglobin Ql (U) Negative Normal NEGATIVE [facility] Comment on above: Performed By: #### H STROPN #### [facility] [address] [place] [address] Dr. Debra Blake Ketones Ql (U) Negative Normal NEGATIVE [facility] Comment on above: Performed By: #### H STROPN #### [facility] [address] [place] [address] Dr. Debra Blake LEUKOCYTES Negative Normal NEGATIVE [facility] Comment on above: Performed By: #### H STROPN #### [facility] [address] [place] [address] Dr. Debra Blake Nitrite Ql (U) Negative Normal NEGATIVE [facility] Comment on above: Performed By: #### H STROPN #### [facility] [address] [place] [address] Dr. Debra Blake pH (U) 7.0 [pH] Normal 5-9 [facility] Comment on above: Performed By: #### H STROPN #### [facility] [address] [place] [address] Dr. Debra Blake SPEC GRAVITY 1.010 Normal 1.005-<=1. 025 [facility] Comment on above: Performed By: #### H STROPN #### [facility] [address] [place] [address] Dr. Debra Blake UA PROTEIN TRACE Normal NEGATIVE/ TRACE [facility] Comment on above: Performed By: #### H STROPN #### [facility] [address] [place] [address] Dr. Debra Blake UR MICRO IND NOT INDICATED Normal [facility] Comment on above: Performed By: #### H STROPN #### [facility] [address] [place] [address] Dr. Debra Blake Urobilinogen Qn (U) 0.2 {Pascale'U}/dL Normal 0.2 - 1. 0 [facility] Comment on above: Performed By: #### H STROPN #### [facility] [address] [place] [address] Dr. Debra Blake ETHANOL (BLD [facility])on 12-20-19 [facility] NOTE NOTE: 80 mg/dl is th e legal limit for a blood alcohol level Normal [facility] Comment on above: Performed By: #### E TH #### [facility] [address] [place] [address] Dr. Debra Blake Ethanol [Mass/Vol] mg/dL Normal [facility] Comment on above: Performed By: #### E TH #### [facility] [address] [place] [address] Dr. Debra Blake PROF CHEM 8 (BAS METB)on Anion gap [Moles/Vol] 14.8 mmol/L Normal [facility] Comment on above: Performed By: #### H STROPN, CMP #### [facility] [address] [place] [address] Dr. Debra Blake Calcium [Mass/Vol] 7.6 mg/dL Critically low 8.5-10.1 [facility] Comment on above: Performed By: #### H STROPN, CMP #### [facility] [address] [place] [address] Dr. Dbera Blake Chloride [Moles/Vol] 93 mmol/L Critically low 98-107 [facility] Comment on above: Performed By: #### H KINGSTONPN, CMP #### [facility] [address] [place] [address] Dr. Debra Blake CO2 [Moles/Vol] 30.6 mmol/L Normal 21.0-32.0 [facility] Comment on above: Performed By: #### H KINGSTONPN, CMP #### [facility] [address] [place] [address] Dr. Debra Blake Creatinine [Mass/Vol] 2.27 mg/dL Critically high 0.55-1.02 [facility] Comment on above: Performed By: #### H STROPN, CMP #### [facility] [address] [place] [address] Dr. Debra Blake EGFR-AF PALAUAN 27 mL/min/1.73m2 Critically low >=60 [facility] Comment on above: Performed By: #### H STROPN, CMP #### [facility] [address] [place] [address] Dr. Debra Blake EGFR-NON AF PALAUAN 22 mL/min/1.73m2 Critically low >=60 [facility] Comment on above: Performed By: #### H STROPN, CMP #### [facility] [address] [address] [address] Debra Blake Glucose [Mass/Vol] 114 mg/dL Critically high 74-106 T [facility] Comment on above: Performed By: #### H STROPN, CMP #### [facility] [address] [address] [address] Debra Blake Potassium [Moles/Vol] 3.4 mmol/L Critically low 3.5-5.1 [facility] Comment on above: Performed By: #### H STROPN, CMP #### [facility] [address] [address] [address] Debra Blake Sodium [Moles/Vol] 135 mmol/L Critically low 136-145 Th [facility] Comment on above: Performed By: #### H STROPN, CMP #### [facility] [address] [place] [address] Dr. Debra Blake Urea nitrogen [Mass/Vol] 20.0 mg/dL Critically high 7.0-18 .0 [facility] Comment on above: Performed By: #### H STROPN, CMP #### [facility] [address] [address] [address] Debra Blake Urea nitrogen/Creatinine [Mass ratio] 8.8 mg/mg Normal [facility] Comment on above: Performed By: #### H STROPN, CMP #### [facility] [address] [place] [address] Dr. Debra Blake TROPONIN, HIGH SENSITIVITYon 12-19-2021 HSTROP 16.7 pg/mL Normal 4.0-51.3 [facility] Comment on above: Result Comment: CUT- OFF POINTS HAVE BEEN ESTABLISHED BASED ON THE FOURTH UNIVERSAL DEFINITIONS OF MYOCARDIAL INFARCTION. THE UPPER REFERENCE LIMIT (URL) OF TROPONIN, DEFINED THE 99TH PERCENTILE OF cTnI DISTRIBUTION IN A REFERENCE POPULATION, HAS BEEN CONFIRMED THE DECISION THRESHOLD FOR PA DIAGNOSIS. Performed By: #### H STROPN #### [facility] [address] [place] [address] Dr. Debra Blake XR CHEST 1 Von [...] DENISE MESSER Date: 2021-12-19 15:[address] [facility] Basophils Auto (Bld) [#/Vol] Ordered By: Hong Jewell on 12-10-2021 Basophils (Bld) [#/Vol] 0.1 10*3/uL 0.0-0.2 [facility] Basophils/100 WBC Auto (Bld) Ordered By: Hong Jewell on 12-10-2021 Basophils/100 WBC (Bld) 0.9 % . [facility] Blood hemoglobin measurement (mass/volume)Ordered By: Hong Jewell on 12-10-2021 Hemoglobin (Bld) [Mass/Vol] 7.5 g/dL 11.8-15.4 [facility] Blood leukocytes automated c ount (number/volume)Ordered By: Hong Jewell on 12-10-2021 WBC (Bld) [#/Vol] 6.3 10*3/uL 4.5-11.[address] [facility] Creatinine and Glomerular fi ltration rate.predicted panel (S/P/Bld)Ordered By: Hong Jewell on 12-10-2021 Creatinine [Mass/Vol] 1.84 mg/dL 0.44-1.03 [facility] Eosinophils Auto (Bld) [#/Vo l]Ordered By: Hong Jewell on 12-10-2021 Eosinophils (Bld) [#/Vol] 0.2 10*3/uL 0.0-0.45 [facility] Eosinophils/100 WBC Auto (Bl d)Ordered By: Hong Jewell on 12-10-2021 Eosinophils/100 WBC (Bld) 3.5 % . [facility] Erythrocyte distribution wid th Auto (RBC) [Ratio]Ordered By: Hong Jewell on 12-10-2021 Erythrocyte distribution width (RBC) [Ratio] 16.3 % 11.9-15.3 [facility] Estimated glomerular filtrat ion rate (GFR) non- AmericanOrdered By: Hong Jewell on 12-10-2021 GFR/1.73 sq M.predicted among non-blacks MDRD (S/P/Bld) [Vol rate/Area] 28 mL/Min [facility] Hematocrit Auto (Bld) [Volum e fraction]Ordered By: Hong Jewell on 12-10-2021 Hematocrit (Bld) [Volume fraction] 22.8 % 34.0-46.4 [facility] - Chemistry and C hemistry - challengeOrdered By: Hong Jewell on 12-10-2021 Magnesium [Mass/Vol] 0.7 mg/dL 1.6-2.6 [facility] Comment on above: Results called at 0825 on 12/10/21 Laboratory - Hematology and Cell countsOrdered By: Hong Jewell on 12-10-2021 Nucleated RBC/100 WBC (Bld) [Ratio] 0.0 % 0-0.5 [facility] Lymphocytes Auto (Bld) [#/Vo l]Ordered By: Hong Jewell on 12-10-2021 Lymphocytes (Bld) [#/Vol] 1.4 10*3/uL 1.00-4.8 [facility] Lymphocytes/100 WBC Auto (Bl d)Ordered By: Hong Jewell on 12-10-2021 Lymphocytes/100 WBC (Bld) 21.7 % . [facility] MCH Auto (RBC) [Entitic mass ]Ordered By: Hong Jewell on 12-10-2021 MCH (RBC) [Entitic mass] 34.3 pg 24.7-34.3 [facility] MCHC Auto (RBC) [Mass/Vol]Or dered By: Hong Jewell on 12-10-2021 MCHC (RBC) [Mass/Vol] 33.0 g/dL 32.0-35.0 [facility] MCV Auto (RBC) [Entitic vol] Ordered By: Hong Jewell on 12-10-2021 MCV (RBC) [Entitic vol] 103.8 fL 80-100 [facility] Monocytes Auto (Bld) [#/Vol] Ordered By: Hong Jewell on 12-10-2021 Monocytes (Bld) [#/Vol] 0.7 10*3/uL 0.0-0.8 [facility] Monocytes/100 WBC Auto (Bld) Ordered By: Hong Jewell on 12-10-2021 Monocytes/100 WBC (Bld) 11.2 % . [facility] Neutrophils Auto (Bld) [#/Vo l]Ordered By: Hong Jewell on 12-10-2021 Neutrophils (Bld) [#/Vol] 3.9 10*3/uL 1.8-7.7 [facility] Neutrophils/100 WBC Auto (Bl d)Ordered By: Hong Jewell on 12-10-2021 Neutrophils/100 WBC (Bld) 62.7 % . [facility] No Panel InformationOrdered By: Hong Jewell on 12-10-2021 Estimated GFR () 34 mL/Min [facility] Comment on above: GFR estimated refere nce range: According to KDOQI guidelines, <60 ml/min/1.73m2 is sufficient to diagnose a patient with chronic kidney disease. Pharmacy Creatinine Clearance (Chem 36.70 [facility] Platelet mean volume Auto (B ld) [Entitic vol]Ordered By: Hong Jewell on 12-10-2021 Platelet mean volume (Bld) [Entitic vol] 6.7 fL 6.3-10.7 [facility] Platelets Auto (Bld) [#/Vol] Ordered By: Hong Jewell on 12-10-2021 Platelets (Bld) [#/Vol] 356 10*3/uL 150-450 [facility] RBC Auto (Bld) [#/Vol]Ordere d By: Hong Jewell on 12-10-2021 RBC (Bld) [#/Vol] 2.20 10*6/uL 3.60-5.00 [facility] Serum or plasma anion gap de terminationOrdered By: Hong Jewell on 12-10-2021 Anion gap [Moles/Vol] TNP [facility] Comment on above: Test not performed Serum or plasma calcium sigifredo urement (mass/volume)Ordered By: Hong Jewell on 12-10-2021 Calcium [Mass/Vol] 9.0 mg/dL 8.2-10.[address] [facility] Serum or plasma chloride matti surement (moles/volume)Ordered By: Hong Jewell on 12-10-2021 Chloride [Moles/Vol] 104 mmol/L 95-114 [facility] Serum or plasma glucose sigifredo urement (mass/volume)Ordered By: Hong Jewell on 12-10-2021 Glucose [Mass/Vol] 137 mg/dL 70-[address] [facility] Comment on above: ADA recommended refe rence range Random Glucose Reference Range is dependent on time and content of last meal. Glucose of more than 200 mg/dL in a nonstressed, ambulatory subject supports the diagnosis of Diabetes Mellitus. Serum or plasma potassium me asurement (moles/volume)Ordered By: Hong Jewell on 12-10-2021 Potassium [Moles/Vol] 4.7 mmol/L 3.5-5.1 [facility] Serum or plasma sodium measu rement (moles/volume)Ordered By: Hong Jewell on 12-10-2021 Sodium [Moles/Vol] 131 mmol/L 136-[address] [facility] Serum or plasma total carbon dioxide measurement (moles/volume)Ordered By: Hong Jewell on 12-10-2021 CO2 [Moles/Vol] 21.1 mmol/L 22.0-30.0 [facility] Serum or plasma urea nitroge n measurement (mass/volume)Ordered By: Hong Jewell on 12-10-2021 Urea nitrogen [Mass/Vol] 21 mg/dL 9-23 [facility] Serum DNA double strand anti body assay (units/volume)Ordered By: William Esposito on 12-09-2021 DNA double strand Ab Qn (S) [IU]/mL 0-9 [facility] Comment on above: Negative <5 Equivocal 5 - 9 Positive >9 Performed at: [facility] [id number] Director International: Sanford Mehta PhD, Phone: [phone] Albumin [Mass/volume] in Ser um or PlasmaOrdered By: William Esposito on 12-07-2021 Albumin [Mass/Vol] 2.6 g/dL 2.9-4.[address] [facility] Albumin/Protein.total in 24 hour Urine by ElectrophoresisOrdered By: William Esposito on 12-07-2021 Albumin Elph (24H U) [Mass fraction] 69.2 % . [facility] Creatinine [Mass/volume] in UrineOrdered By: William Esposito on 12-07-2021 Creatinine (U) [Mass/Vol] 153.0 mg/dL [facility] Comment on above: No reference range e stablished Gamma globulin/Protein.total in 24 hour Urine by ElectrophoresisOrdered By: William Esposito on 12-07-2021 Gamma globulin Elph (24H U) [Mass fraction] 8.2 % . [facility] IgA [Mass/volume] in Serum o r PlasmaOrdered By: William Esposito on 12-07-2021 IgA [Mass/Vol] 357 mg/dL 87-352 [facility] IgG [Mass/volume] in Serum o r PlasmaOrdered By: William Esposito on 12-07-2021 IgG [Mass/Vol] 794 mg/dL 586-1602 [facility] IgM [Mass/volume] in Serum o r PlasmaOrdered By: William Esposito on 12-07-2021 IgM [Mass/Vol] 109 mg/dL 26-217 [facility] Comment on above: Performed at: [facility] [address] [id number] Director International: Sanford Mehta PhD, Phone: [phone] Immunofixation for UrineOrde red By: William Esposito on 12-07-2021 Interpretation Immunofixation (U) [Interp] Comment: . [facility] Comment on above: Presence of monoclon al protein is unclear at this time. Suggest repeat in 3 to 6 months if clinically indicated. Performed at: [facility] [id number] Director International: Sanford Mehta PhD, Phone: [phone] Immunoglobulin light chains. kappa.free [Mass/volume] in SerumOrdered By: William Esposito on 12-07-2021 Immunoglobulin light chains.kappa.free (S) [Mass/Vol] 81.9 mg/L 3.3-19.4 [facility] Immunoglobulin light chains. kappa.free/Immunoglobulin light chains.lambda.free [MassOrdered By: William Esposito on 12-07-2021 Immunoglobulin light chains.kappa.free/Immuno globulin light chains.lambda.free (S) [Mass ratio] 1.31 0.26-1.65 [facility] Comment on above: Performed at: [facility] [address] [id number] Director International: Sanford Mehta PhD, Phone: [phone] Immunoglobulin light chains. lambda.free [Mass/volume] in Serum or PlasmaOrdered By: William Esposito on 12-07-2021 Immunoglobulin light chains.lambda.free [Mass/Vol] 62.3 mg/L 5.7-26.3 [facility] No Panel InformationOrdered By: William Esposito on 12-07-2021 Urine Random Prot Electrophor Note See comment . [facility] Comment on above: Protein electrophore sis scan will follow via computer, mail, or brake coupler road freight delivery. Performed at: [facility] [id number] Director International: Sanford Mehta PhD, Phone: [phone] Protein Electrophoresis M-Alexei Not observed g/dL Not Observed [facility] Protein Electrophoresis Note See comment . [facility] Comment on above: Protein electrophore sis scan will follow via computer, mail, or brake coupler road freight delivery. Performed at: [facility] [id number] [place], [place] [id number] Director International: Sanford Mehta PhD, Phone: [phone] Serum Immunofixation See comment . [facility] Comment on above: No monoclonality det ected. Protein [Mass/volume] in Ser um or PlasmaOrdered By: William Esposito on 12-07-2021 Protein [Mass/Vol] 5.2 g/dL 6.0-8.[address] [facility] Protein [Mass/volume] in Uri neOrdered By: William Esposito on 12-07-2021 Protein (U) [Mass/Vol] 51.3 mg/dL Not Estab. [facility] Protein.monoclonal/Protein.t otal in 24 hour Urine by ElectrophoresisOrdered By: William Esposito on 12-07-2021 Protein.monoclonal Elph (24H U) [Mass fraction] Not observed % Not Observed [facility] Serum globulin measurement ( mass/volume)Ordered By: William Esposito on 12-07-2021 Globulin (S) [Mass/Vol] 2.6 g/dL 2.2-3.9 [facility] Serum or plasma albumin/glob ulin mass ratioOrdered By: William Vaibhav on 12-07-2021 Albumin/Globulin [Mass ratio] 1.0 {ratio} 0.7-1.7 [facility] Serum or plasma alpha 1 glob ulin measurement by electrophoresis (mass/volume)Ordered By: William Vaibhav on 12-07-2021 Alpha 1 globulin Elph [Mass/Vol] 0.3 g/dL 0.0-0.4 [facility] Serum or plasma alpha 2 glob ulin measurement by electrophoresis (mass/volume)Ordered By: William Esposito on 12-07-2021 Alpha 2 globulin Elph [Mass/Vol] 0.7 g/dL 0.4-1.0 [facility] Serum or plasma beta globuli n measurement by electrophoresis (mass/volume)Ordered By: William Vaibhav on 12-07-2021 Beta globulin Elph [Mass/Vol] 0.7 g/dL 0.7-1.3 [facility] Serum or plasma gamma globul in measurement by electrophoresis (mass/volume)Ordered By: William Vaibhav on 12-07-2021 Gamma globulin Elph [Mass/Vol] 0.9 g/dL 0.4-1.8 [facility] Troponin I.cardiac [Mass/vol ume] in Serum or Plasma by High sensitivity methodOrdered By: Hong Jewell on 12-07-2021 Troponin I.cardiac High sensitivity method [Mass/Vol] 7 pg/mL 0-15 [facility] Urine alpha 1 globulin/total protein by electrophoresisOrdered By: William Vaibhav on 12-07-2021 Alpha 1 globulin Elph (U) [Mass fraction] 3.1 % . [facility] Urine alpha 2 globulin/total protein ratio by electrophoresisOrdered By: William Vaibhav on 12-07-2021 Alpha 2 globulin Elph (U) [Mass fraction] 6.0 % . [facility] Urine beta globulin measurem ent by electrophoresis (mass/volume)Ordered By: William Vaibhav on 12-07-2021 Beta globulin Elph (U) [Mass/Vol] 13.5 % . [facility] Urine culture routineOrdered By: Hong Jewell on 12-07-2021 Bacteria identified Cx Nom (U) Klebsiella oxytoca [facility] Urine protein/creatinine rat ioOrdered By: William Vaibhav on 12-07-2021 Protein/Creatinine (U) [Ratio] 359 mg/g{Cre} 0-200 [facility] Albumin [Mass/volume] in Ser um or PlasmaOrdered By: William Vaibhav on 12-06-2021 Albumin [Mass/Vol] 3.0 g/dL 3.2-5.[address] [facility] CULTURE URINEon 12-06-2021 CULTURE URINE Isolate [...] Trimethoprim/Sulfamethoxa zole <=20 S F Normal [facility] Comment on above: Performed By: #### H STROPN #### [facility] [address] [place] [address] Dr. Debra Blake Glucose Glucometer (BldC) [M ass/Vol]Ordered By: Hong Jewell on 12-06-2021 Glucose [Mass/Vol] 145 mg/dL [facility] Comment on above: Random Glucose Refer ence Range is dependent on time and content of last meal. Glucose of more than 200 mg/dL in a nonstressed, ambulatory subject supports the diagnosis of Diabetes Mellitus. No Panel InformationOrdered By: Hong Jewell on 12-06-2021 Anti-Nuclear Antibody Comment 2 See comment . [facility] Comment on above: For more [...] titers Nucleosomes, Histones Drug-induced SLE Speckled Sm, MOLD BUILDER, SCL-70, SLE,MCTD,PSS (diffuse form), SS-A/SS-B Sjogrens Nucleolar SCL-70, PM-1/SCL High titers Scleroderma, PM/DM Centromere Centromere PSS (limited form) w/Crest syndrome variable Nuclear Dot [id number] Primary Biliary Cirrhosis Nuclear GP210, Primary Biliary Cirrhosis Membrane chun A,B,C Performed at: [address] [id number] Director International: Sanford Mehta PhD, Phone: [phone] OSMOLALITY URINEon 2 Osmolality, Urine 180 mOsmol/kg Normal [facility] Comment on above: Result Comment: 24 h r : 300 - 900 Random: 50 - 1400 After 12hr fluid restriction: >850 Performed By: #### H STROPN #### [facility] [address] [address] [address] Debra Blake Serum nuclear antibody titer Ordered By: Hong Jewell on 12-06-2021 Nuclear Ab (S) [Titer] Positive . [facility] Comment on above: Negative <1:80 Borderline 1:80 Positive >1:80 Serum or plasma cyclic adeno sine monophosphate measurement (moles/volume)Ordered By: Hong Jewell on 12-06-2021 Adenosine monophosphate.cyclic [Moles/Vol] 10 units 0-19 [facility] Comment on above: Negative <20 Weak positive 20 - 39 Moderate positive 40 - 59 Strong positive >59 Performed at: - [facility] [id number] Director International: eMli Bishop MD, Phone: [phone] Serum or plasma ethanol sigifredo urement (mass/volume)Ordered By: Rehan Russ on 12-06-2021 Ethanol [Mass/Vol] mg/dL [facility] Ethanol [Mass/Vol] TNP [facility] Comment on above: Test not performed Serum speckled pattern antin uclear antibody (MATY) titerOrdered By: Hong Jewell on 12-06-2021 Speckled nuclear Ab pattern (S) [Titer] 1:80 . [facility] Comment on above: ICAP nomenclature: A C-2,4,5,29 Amphetamine Screen Ql (U)Ord ered By: Hong Jewell on 12-05-2021 Amphetamines Ql (U) Negative Negative [facility] Automated erythrocytes count in urine sediment (number/area)Ordered By: Hong Jewell on 12-05-2021 RBC Auto (Urine sed) [#/Area] 1-2 [HPF] 0-4 [facility] Automated leukocytes count i n urine sediment (number/area)Ordered By: Hong Jewell on 12-05-2021 WBC Auto (Urine sed) [#/Area] Innumerable [HPF] 0-4 [facility] Barbiturates [Presence] in U rineOrdered By: Hong Jewell on 12-05-2021 Barbiturates Ql (U) Negative Negative [facility] Benzodiazepines [Presence] i n UrineOrdered By: Hong Jewell on 12-05-2021 Benzodiazepines Ql (U) Positive Negative [facility] Bilirubin Test strip Ql (U)O rdered By: Hong Jewell on 12-05-2021 Bilirubin Ql (U) Negative Negative [facility] CT biopsyOrdered By: Patricia Jewell on 12-05-2021 Transferrin [Mass/Vol] 175 mg/dL 180-380 [facility] Cannabinoids [Presence] in U rine by Screen methodOrdered By: Hong Jewell on 12-05-2021 Cannabinoids Screen Ql (U) Negative Negative [facility] Comment on above: These are unconfirme d results and should not be used for legal purposes. Drug Cut-Off Concentration: AMPH 1000 ng/mL GAYLE 200 ng/mL ISAEL 200 ng/mL COCM 300 ng/mL OP 300 ng/mL PCP 25 ng/mL THC 20 ng/mL Color Auto (U)Ordered By: Nikos Jewell on 12-05-2021 Color (U) Yellow Yellow [facility] Ferritin [Mass/volume] in Se rum or PlasmaOrdered By: Hong Jewell on 12-05-2021 Ferritin [Mass/Vol] 80.8 ng/mL 11-306.8 [facility] Iron [Mass/volume] in Serum or PlasmaOrdered By: Hong Jewell on 12-05-2021 Iron [Mass/Vol] 22 ug/dL 40-150 [facility] Iron binding capacity [Mass/ volume] in Serum or PlasmaOrdered By: Hong Jewell on 12-05-2021 Iron binding capacity [Mass/Vol] 245 ug/dL 255-450 [facility] Ketones Auto test strip (U) [Mass/Vol]Ordered By: Hong Jewell on 12-05-2021 Ketones (U) [Mass/Vol] Negative Negative [facility] - Drug toxicology Ordered By: Hong Jewell on 12-05-2021 Opiates Ql (U) Negative Negative [facility] - UrinalysisOrder ed By: Hong Jewell on 12-05-2021 Hyaline casts LM Ql (Urine sed) 0-8 [LPF] 0-8 [facility] Lactate dehydrogenase measur ement (enzymatic activity/volume)Ordered By: Hong Jewell on 12-05-2021 LDH (Unsp spec) [Catalytic activity/Vol] 135 U/L 45-190 [facility] Nitrite Test strip Ql (U)Ord ered By: Hong Jewell on 12-05-2021 Nitrite Ql (U) Negative Negative [facility] No Panel InformationOrdered By: Hong Jewell on 12-05-2021 25-Hydroxy Vitamin D Total 21.8 ng/mL 30-100 [facility] Comment on above: VITAMIN D STATUS 25( [place])VITAMIN D RANGE (ng/mL) Deficient <20 Insufficient 20 to <30 Sufficient 30 to 100 Reference: Maggie MF,Jose NC, Gilberto VARGAS, et al. Evaluation,treatment, and prevention of vitamin D deficiency; an Endocrine Society clinical practice guideline. JCEM. 2010; 96(7):1911-30. Vitamin C level <0.1 mg/dL 0.4-2.0 [facility] Comment on above: This test was serena claudio and its performance characteristics determined by [employer]. It has not been cleared or approved by the Food and Drug Administration. Vitamin C deficiency is generally defined as plasma or serum concentrations less than 0.2 mg/dL and levels between 0.2 and 0.4 mg/dL are considered low. Performed at: [address] [id number] Director International: Meli Bishop MD, Phone: [phone] Phencyclidine Screen Ql (U)O rdered By: Hong Jewell on 12-05-2021 Phencyclidine Ql (U) Negative Negative [facility] Protein Auto test strip (U) [Mass/Vol]Ordered By: Hong Jewell on 12-05-2021 Protein (U) [Mass/Vol] 30 mg/dL Negative [facility] Serum or plasma thyroxine (T 4) measurement (mass/volume)Ordered By: Hong Jewell on 12-05-2021 T4 [Mass/Vol] 7.19 ug/dL 5.39-11.82 [facility] Specific gravity Auto test s trip (U) [Rel density]Ordered By: Hong Jewell on 12-05-2021 Specific gravity (U) [Rel density] 1.013 1.001-1.03 0 [facility] Squamous epithelial cells de tection in urine sediment by light microscopyOrdered By: Hong Jewell on 12-05-2021 Epithelial cells.squamous LM Ql (Urine sed) 5-9 [HPF] 0-2 [facility] Thyroxine (T4) free [Mass/vo lume] in Serum or PlasmaOrdered By: Hong Jewell on 12-05-2021 Free T4 [Mass/Vol] 1.00 ng/dL 0.61-1.[address] [facility] Urine bacteria detection by automated methodOrdered By: Hong Jewell on 12-05-2021 Bacteria Auto Ql (U) 4+ None Seen [facility] Urine clarity by refractomet ry automatedOrdered By: Hong Jewell on 12-05-2021 Clarity Refractometry automated (U) Cloudy Clear [facility] Urine cocaine detectionOrder ed By: Hong Jewell on 12-05-2021 Cocaine Ql (U) Negative Negative [facility] Urine glucose measurement by automated test strip (mass/volume)Ordered By: Hong Jewell on 12-05-2021 Glucose Auto test strip (U) [Mass/Vol] Normal mg/dL Normal [facility] Urine hemoglobin detection b y automated test stripOrdered By: Hong Jewell on 12-05-2021 Hemoglobin Auto test strip Ql (U) Negative Negative [facility] Urine leukocyte esterase det ection by automated test stripOrdered By: Hong Jewell on 12-05-2021 Leukocyte esterase Auto test strip Ql (U) 4+ Negative [facility] Urobilinogen Auto test strip (U) [Mass/Vol]Ordered By: Hong Jewell on 12-05-2021 Urobilinogen (U) [Mass/Vol] Normal mg/dL Normal [facility] pH Auto test strip (U)Ordere d By: Hong Jewell on 12-05-2021 pH (U) 5.5 [pH] 5.0-9.0 [facility] Activated partial thrombopla stin time (aPTT) in platelet poor plasma by coagulation aOrdered By: Hong Jewell on 12-04-2021 aPTT Coag (PPP) [Time] 29.9 s 25.1-36.5 [facility] CBC AUTO DIFFon 12-04-2021 BASO # 0.0 103/ul Normal 0.0-0.1 [facility] Comment on above: Performed By: #### H GARY, CMP #### [facility] [address] [address] [address] Debra Blake Basophils/100 WBC (Bld) 0.4 % Normal 0.2-2.0 [facility] Comment on above: Performed By: #### H GARY, CMP #### [facility] [address] [address] [address] Debra Blake EO # 0.1 103/ul Normal 0.0-0.7 [facility] Comment on above: Performed By: #### H GARY, CMP #### [facility] [address] [address] [address] Debra Blake Eosinophils/100 WBC (Bld) 1.3 % Normal 0.9-7.0 [facility] Comment on above: Performed By: #### H GARY, CMP #### [facility] [address] [address] [address] Debra Blake Erythrocyte distribution width (RBC) [Ratio] 14.6 % Normal 11.0-15.0 [facility] Comment on above: Performed By: #### H STROPN, CMP #### [facility] [address] [place] [address] Dr. Debra Blake Hematocrit (Bld) [Volume fraction] 24.6 % Critically low 36.0-48.0 [facility] Comment on above: Performed By: #### H STROPN, CMP #### [facility] [address] [place] [address] Dr. Debra Blake Hemoglobin (Bld) [Mass/Vol] 8.6 g/dL Critically low 12.0-16.0 [facility] Comment on above: Performed By: #### H STROPN, CMP #### [facility] [address] [place] [address] Dr. Debra Blake IG # 0.04 10e3/ul Critically high 0.00-0.03 [facility] Comment on above: Performed By: #### H STROPN, CMP #### [facility] [address] [place] [address] Dr. Debra Blake IG % 0.6 % Critically high 0.0-0.5 [facility] Comment on above: Performed By: #### H STROPN, CMP #### [facility] [address] [place] [address] Dr. Debra Blake LYMPH # 1.3 103/ul Normal 1.2-3.8 [facility] Comment on above: Performed By: #### H STROPN, CMP #### [facility] [address] [place] [address] Dr. Debra Blake Lymphocytes/100 WBC (Bld) 19.7 % Critically low 20.5-60.0 [facility] Comment on above: Performed By: #### H STROPN, CMP #### [facility] [address] [place] [address] Dr. Debra Blake MANUAL DIFF REQ NO Normal [facility] Comment on above: Performed By: #### H STROPN, CMP #### [facility] [address] [place] [address] Dr. Debra Blake MCH (RBC) [Entitic mass] 34.3 pg Critically high 26.7-3 4.0 [facility] Comment on above: Performed By: #### H STROPN, CMP #### [facility] [address] [place] [address] Dr. Debra Blake MCHC (RBC) [Mass/Vol] 35.0 g/dL Normal 29.9-35.2 [facility] Comment on above: Performed By: #### H STROPN, CMP #### [facility] [address] [place] [address] Dr. Debra Blake MCV (RBC) [Entitic vol] 98.0 fL Normal 81.0-99.0 [facility] Comment on above: Performed By: #### H STROPN, CMP #### [facility] [address] [place] [address] Dr. Debra Blake MONO # 0.9 103/ul Critically high 0.3-0.8 [facility] Comment on above: Performed By: #### H STROPN, CMP #### [facility] [address] [place] [address] Dr. Debra Blake Monocytes/100 WBC (Bld) 12.7 % Critically high 1.7-12. 0 [facility] Comment on above: Performed By: #### H STROPN, CMP #### [facility] [address] [place] [address] Dr. Debra Blake NEUT # 4.4 103/ul Normal 1.4-6.5 [facility] Comment on above: Performed By: #### H STROPN, CMP #### [facility] [address] [place] [address] Dr. Debra Blake Neutrophils/100 WBC (Bld) 65.3 % Normal 43.0-75.0 [facility] Comment on above: Performed By: #### H STROPN, CMP #### [facility] [address] [place] [address] Dr. Debra Blake Platelet mean volume (Bld) [Entitic vol] 9.0 fL Critically low 9.5-13.5 [facility] Comment on above: Performed By: #### H GARY, CMP #### [facility] [address] [place] [address] Dr. Debra Blake PLT 142 103/ul Critically low 150-450 [facility] Comment on above: Performed By: #### H GARY, CMP #### [facility] [address] [place] [address] Dr. Debra Blake RBC 2.51 106/ul Critically low 4.20-5.40 [facility] Comment on above: Performed By: #### H GARY, CMP #### [facility] [address] [place] [address] Dr. Debra Blake WBC 6.8 103/ul Normal 4.0-11.0 [facility] Comment on above: Performed By: #### H GARY, CMP #### [facility] [address] [place] [address] Dr. Debra Blake BASO # 0.0 103/ul Normal 0.0-0.1 [facility] Comment on above: Performed By: #### C BC #### [facility] [address] [place] [address] Dr. Debra Blake Basophils/100 WBC (Bld) 0.5 % Normal 0.2-2.0 [facility] Comment on above: Performed By: #### C BC #### [facility] [address] [place] [address] Dr. Debra Blake EO # 0.1 103/ul Normal 0.0-0.7 [facility] Comment on above: Performed By: #### C BC #### [facility] [address] [place] [address] Dr. Debra Blake Eosinophils/100 WBC (Bld) 0.9 % Normal 0.9-7.0 [facility] Comment on above: Performed By: #### C BC #### [facility] [address] [place] [address] Dr. Debra Blake Erythrocyte distribution width (RBC) [Ratio] 14.6 % Normal 11.0-15.0 [facility] Comment on above: Performed By: #### C BC #### [facility] [address] [place] [address] Dr. Debra Blake Hematocrit (Bld) [Volume fraction] 26.2 % Critically low 36.0-48.0 [facility] Comment on above: Performed By: #### C BC #### [facility] [address] [place] [address] Dr. Debra Blake Hemoglobin (Bld) [Mass/Vol] 9.2 g/dL Critically low 12.0-16.0 [facility] Comment on above: Performed By: #### C BC #### [facility] [address] [place] [address] Dr. Debra Blake IG # 0.06 10e3/ul Critically high 0.00-0.03 [facility] Comment on above: Performed By: #### C BC #### [facility] [address] [place] [address] Dr. Debra Blake IG % 0.7 % Critically high 0.0-0.5 [facility] Comment on above: Performed By: #### C BC #### [facility] [address] [place] [address] Dr. Debra Blake LYMPH # 1.3 103/ul Normal 1.2-3.8 [facility] Comment on above: Performed By: #### C BC #### [facility] [address] [place] [address] Dr. Debra Blake Lymphocytes/100 WBC (Bld) 15.7 % Critically low 20.5-60.0 [facility] Comment on above: Performed By: #### C BC #### [facility] [address] [place] [address] Dr. Debra Blake MANUAL DIFF REQ NO Normal [facility] Comment on above: Performed By: #### C BC #### [facility] [address] [place] [address] Dr. Debra Blake MCH (RBC) [Entitic mass] 34.2 pg Critically high 26.7-3 4.0 [facility] Comment on above: Performed By: #### C BC #### [facility] [address] [place] [address] Dr. Debra Blake MCHC (RBC) [Mass/Vol] 35.1 g/dL Normal 29.9-35.2 [facility] Comment on above: Performed By: #### C BC #### [facility] [address] [place] [address] Dr. Debra Blake MCV (RBC) [Entitic vol] 97.4 fL Normal 81.0-99.0 [facility] Comment on above: Performed By: #### C BC #### [facility] [address] [place] [address] Dr. Debra Blake MONO # 1.1 103/ul Critically high 0.3-0.8 [facility] Comment on above: Performed By: #### C BC #### [facility] [address] [place] [address] Dr. Debra Blake Monocytes/100 WBC (Bld) 13.3 % Critically high 1.7-12. 0 [facility] Comment on above: Performed By: #### C BC #### [facility] [address] [place] [address] Dr. Debra Blake NEUT # 5.6 103/ul Normal 1.4-6.5 [facility] Comment on above: Performed By: #### C BC #### [facility] [address] [place] [address] Dr. Debra Blake Neutrophils/100 WBC (Bld) 68.9 % Normal 43.0-75.0 [facility] Comment on above: Performed By: #### C BC #### [facility] [address] [place] [address] Dr. Debra Blake Platelet mean volume (Bld) [Entitic vol] 9.2 fL Critically low 9.5-13.5 [facility] Comment on above: Performed By: #### C BC #### [facility] [address] [place] [address] Dr. Debra Blake PLT 179 103/ul Normal 150-450 [facility] Comment on above: Performed By: #### C BC #### [facility] [address] [place], [place] [address] Dr. Debra Blake RBC 2.69 106/ul Critically low 4.20-5.40 [facility] Comment on above: Performed By: #### C BC #### [facility] [address] [place], [place] [address] Dr. Debra Blake WBC 8.1 103/ul Normal 4.0-11.0 [facility] Comment on above: Performed By: #### C BC #### [facility] [address] [place], [place] [address] Dr. Debra Blake Creatine kinase [Enzymatic a ctivity/volume] in Serum or PlasmaOrdered By: Hnog Jewell on 12-04-2021 CK [Catalytic activity/Vol] 140 U/L 22-269 [facility] Direct bilirubin measurement Ordered By: Hong Jewell on 12-04-2021 Bilirubin.direct [Mass/Vol] 0.2 mg/dL 0.0-0.4 [facility] Folate [Mass/volume] in Seru m or PlasmaOrdered By: Hong Jewell on 12-04-2021 Folate [Mass/Vol] 5.1 ng/mL >5.9 [facility] Comment on above: Folate reference ran ge: >5.9 ng/ml The WHO technical consultation on folate and vitamin b12 deficiencies has determined that folate concentrations less than 4 ng/ml are considered deficient. Globulin Calc (S) [Mass/Vol] Ordered By: Hong Jewell on 12-04-2021 Globulin (S) [Mass/Vol] 3.2 g/dL [facility] Glucose mean value [Mass/vol ume] in Blood Estimated from glycated hemoglobinOrdered By: Hong Jewell on 12-04-2021 Average glucose Estimated from glycated hemoglobin (Bld) [Mass/Vol] 97 mg/dL [facility] Hemoglobin A1c percentageOrd ered By: Hong Jewell on 12-04-2021 HbA1c (Bld) [Mass fraction] 5.0 % 4.3-5.6 [facility] Comment on above: Increased risk for d iabetes: 5.7 - 6.4 diabetes: >6.4 glycemic control for adults with diabetes: <7.0 Laboratory - Chemistry and C hemistry - challengeOrdered By: Hong Jewell on 12-04-2021 Cobalamin (Vitamin B12) [Mass/Vol] 520 pg/mL 180-914 [facility] - CoagulationOrde red By: Hong Jewell on 12-04-2021 PT Coag (PPP) [Time] 12.2 s 9.0-12.9 [facility] MAGNESIUMon 12-04-2021 Magnesium [Mass/Vol] 1.1 mg/dL Critically low 1.8-2.4 [facility] Comment on above: Performed By: #### H STROPN #### [facility] [address] [place] [address] Dr. Debra Blake Magnesium [Mass/Vol] 0.6 mg/dL Critically low 1.8-2.4 [facility] Comment on above: Performed By: #### H STROPN, CMP #### [facility] [address] [place] [address] Dr. Debra Blake PROF 14(COMP METB)on 022 Albumin [Mass/Vol] 2.7 g/dL Critically low 3.4-5.0 Th [facility] Comment on above: Performed By: #### H STROPN #### [facility] [address] [place] [address] Dr. Debra Blake Albumin/Globulin [Mass ratio] 0.8 {ratio} Normal [facility] Comment on above: Performed By: #### H STROPN #### [facility] [address] [place] [address] Dr. Debra Blake ALP [Catalytic activity/Vol] 57 U/L Normal 46-116 [facility] Comment on above: Performed By: #### H STROPN #### [facility] [address] [place] [address] Dr. Debra Blake ALT [Catalytic activity/Vol] 7 U/L Critically low 14-59 [facility] Comment on above: Performed By: #### H STROPN #### [facility] [address] [place] [address] Dr. Debra Blake Anion gap [Moles/Vol] 17.3 mmol/L Normal Th [facility] Comment on above: Performed By: #### H STROPN #### [facility] [address] [place] [address] [address] Debra Blake AST [Catalytic activity/Vol] 14 U/L Critically low 15-37 [facility] Comment on above: Performed By: #### H STROPN #### [facility] [address] [place] [address] Dr. Debra Blake Bilirubin [Mass/Vol] 0.6 mg/dL Normal 0.2-1.0 [facility] Comment on above: Performed By: #### H STROPN #### [facility] [address] [place] [address] Dr. Debra Blake Calcium [Mass/Vol] 5.8 mg/dL Critically low 8.5-10.1 [facility] Comment on above: Result Comment: Test Repeated. Critical Value Verified Performed By: #### H STROPN #### [facility] [address] [place] [address] Dr. Debra Blake Chloride [Moles/Vol] 94 mmol/L Critically low 98-107 [facility] Comment on above: Performed By: #### H STROPN #### [facility] [address] [place] [address] Dr. Debra Blake CO2 [Moles/Vol] 17.7 mmol/L Critically low 21.0-32.0 [facility] Comment on above: Performed By: #### H STROPN #### [facility] [address] [place] [address] Dr. Debra Blake Creatinine [Mass/Vol] 2.48 mg/dL Critically high 0.55-1.02 [facility] Comment on above: Performed By: #### H STROPN #### [facility] [address] [place] [address] Dr. Debra Blake EGFR-AF PALAUAN 24 mL/min/1.73m2 Critically low >=60 [facility] Comment on above: Performed By: #### H STROPN #### [facility] [address] [place] [address] [address] Debra Blake EGFR-NON AF PALAUAN 20 mL/min/1.73m2 Critically low >=60 [facility] Comment on above: Performed By: #### H STROPN #### [facility] [address] [place] [address] [address] Debra Blake Globulin (S) [Mass/Vol] 3.2 g/dL Normal [facility] Comment on above: Performed By: #### H STROPN #### [facility] [address] [place] [address] Dr. Debra Blake Glucose [Mass/Vol] 108 mg/dL Critically high 74-106 [facility] Comment on above: Performed By: #### H STROPN #### [facility] [address] [place] [address] [address] Debra Blake Potassium [Moles/Vol] 3.0 mmol/L Critically low 3.5-5.1 [facility] Comment on above: Performed By: #### H STROPN #### [facility] [address] [place] [address] Dr. Debra Blake Protein [Mass/Vol] 5.9 g/dL Critically low 6.4-8.2 Th [facility] Comment on above: Performed By: #### H STROPN #### [facility] [address] [place] [address] [address] Debra Blake Sodium [Moles/Vol] 126 mmol/L Critically low 136-145 Th [facility] Comment on above: Performed By: #### H STROPN #### [facility] [address] [place] [address] [address] Debra Blake Urea nitrogen [Mass/Vol] 29.0 mg/dL Critically high 7.0-18 .0 [facility] Comment on above: Performed By: #### H STROPN #### [facility] [address] [place] [address] Dr. Debra Blake Urea nitrogen/Creatinine [Mass ratio] 11.7 mg/mg Normal [facility] Comment on above: Performed By: #### H KINGSTONPN #### [facility] [address] [place] [address] [address] Debra Blake Albumin [Mass/Vol] 3.1 g/dL Critically low 3.4-5.0 [facility] Comment on above: Performed By: #### H KINGSTONPN, CMP #### [facility] [address] [place] [address] [address] Debra Blake Albumin/Globulin [Mass ratio] 0.8 {ratio} Normal [facility] Comment on above: Performed By: #### H GARY, CMP #### [facility] [address] [place] [address] Dr. Debra Blake ALP [Catalytic activity/Vol] 65 U/L Normal 46-116 [facility] Comment on above: Performed By: #### H GARY, CMP #### [facility] [address] [place] [address] Dr. Debra Blake ALT [Catalytic activity/Vol] 9 U/L Critically low 14-59 [facility] Comment on above: Performed By: #### H KINGSTONPN, CMP #### [facility] [address] [place] [address] Dr. Debra Blake Anion gap [Moles/Vol] 17.3 mmol/L Normal [facility] Comment on above: Performed By: #### H KINGSTONPN, CMP #### [facility] [address] [place] [address] [address] Debra Blake AST [Catalytic activity/Vol] 17 U/L Normal 15-37 [facility] Comment on above: Performed By: #### H STROPN, CMP #### [facility] [address] [place] [address] [address] Debra Blake Bilirubin [Mass/Vol] 0.8 mg/dL Normal 0.2-1.0 [facility] Comment on above: Performed By: #### H KINGSTONPN, CMP #### [facility] [address] [place] [address] Dr. Debra Blake Calcium [Mass/Vol] 5.8 mg/dL Critically low 8.5-10.1 Th [facility] Comment on above: Result Comment: Test Repeated. Critical Value Verified Performed By: #### H STROPN, CMP #### [facility] [address] [place] [address] [address] Debra Blake Chloride [Moles/Vol] 91 mmol/L Critically low 98-107 [facility] Comment on above: Performed By: #### H STROPN, CMP #### [facility] [address] [place] [address] Dr. Debra Blake CO2 [Moles/Vol] 19.6 mmol/L Critically low 21.0-32.0 [facility] Comment on above: Performed By: #### H STROPN, CMP #### [facility] [address] [place] [address] Dr. Debra Blake Creatinine [Mass/Vol] 2.66 mg/dL Critically high 0.55-1.02 [facility] Comment on above: Performed By: #### H STROPN, CMP #### [facility] [address] [place] [address] Dr. Debra Blake EGFR-AF PALAUAN 22 mL/min/1.73m2 Critically low >=60 [facility] Comment on above: Performed By: #### H STROPN, CMP #### [facility] [address] [place] [address] Dr. Debra Blake EGFR-NON AF PALAUAN 18 mL/min/1.73m2 Critically low >=60 [facility] Comment on above: Performed By: #### H STROPN, CMP #### [facility] [address] [place] [address] Dr. Debra Blake Globulin (S) [Mass/Vol] 3.7 g/dL Normal T [facility] Comment on above: Performed By: #### H STROPN, CMP #### [facility] [address] [place] [address] Dr. Debra Blake Glucose [Mass/Vol] 106 mg/dL Normal 74-106 [facility] Comment on above: Performed By: #### H STROPN, CMP #### [facility] [address] [place] [address] [address] Debra Blake Potassium [Moles/Vol] 2.8 mmol/L Critically low 3.5-5.1 [facility] Comment on above: Result Comment: Test Repeated. Critical Value Verified Performed By: #### H GARY, CMP #### [facility] [address] [place] [address] [address] Debra Blake Protein [Mass/Vol] 6.8 g/dL Normal 6.4-8.2 [facility] Comment on above: Performed By: #### H GARY, CMP #### [facility] [address] [place] [address] [address] Debra Blake Sodium [Moles/Vol] 123 mmol/L Critically low 136-145 Th [facility] Comment on above: Result Comment: Test Repeated. Critical Value Verified Performed By: #### H GARY, CMP #### [facility] [address] [place] [address] [address] Debra Blake Urea nitrogen [Mass/Vol] 29.0 mg/dL Critically high 7.0-18 .0 [facility] Comment on above: Performed By: #### H GARY, CMP #### [facility] [address] [place] [address] [address] Debra Blake Urea nitrogen/Creatinine [Mass ratio] 10.9 mg/mg Normal [facility] Comment on above: Performed By: #### H GARY, CMP #### [facility] [address] [place] [address] Dr. Debra Blake Phosphate [Mass/volume] in S lydia or PlasmaOrdered By: Hong Jewell on 12-04-2021 Phosphate [Mass/Vol] 3.6 mg/dL 2.5-4.6 [facility] Platelet poor plasma interna tional normalized ratio (INR) by coagulation assay (relatOrdered By: Hong Jewell on 12-04-2021 INR Coag (PPP) [Relative time] 1.1 {INR} [facility] Comment on above: INR Therapeutic [...] Protein [Mass/Vol] 6.2 g/dL 6.1-7.[address] [facility] Serum ionized calcium measur ement using ion specific electrode (mass/volume)Ordered By: Hong Jewell on 12-04-2021 Calcium.ionized ISE [Mass/Vol] 3.5 mg/dL 4.5-5.6 [facility] Comment on above: Performed at: [address] [id number] Director International: Sanford Mehta PhD, Phone: [phone] Serum or plasma alanine orellana otransferase measurement without P-5'-P (enzymatic activiOrdered By: Hong Jewell on 12-04-2021 ALT No additional P-5'-P [Catalytic activity/Vol] 8 U/L 10-60 [facility] Serum or plasma albumin/glob ulin mass ratioOrdered By: Hong Jewell on 12-04-2021 Albumin/Globulin [Mass ratio] 0.9 {ratio} [facility] Serum or plasma alkaline lauren sphatase measurement (enzymatic activity/volume)Ordered By: Hong Jewell on 12-04-2021 ALP [Catalytic activity/Vol] 51 U/L 32-92 [facility] Serum or plasma aspartate am inotransferase measurement (enzymatic activity/volume)Ordered By: Hong Jewell on 12-04-2021 AST [Catalytic activity/Vol] 15 U/L 10-42 [facility] Serum or plasma creatine kin ase MB (CKMB)/total creatine kinase (CK) ratio by calculaOrdered By: Hong Jewell on 12-04-2021 CK.MB Calc [Catalytic fraction] 1.4 % 0.00-2.50 [facility] Serum or plasma creatine kin ase MB measurement (mass/volume)Ordered By: Hong Jewell on 12-04-2021 CK.MB [Mass/Vol] 2.0 ng/mL 0.6-6.3 [facility] Serum or plasma non-glucuron idated bilirubin measurement (mass/volume)Ordered By: Hong Jewell on 12-04-2021 Bilirubin.indirect [Mass/Vol] 0.6 mg/dL [facility] Serum or plasma prealbumin m easurement (mass/volume)Ordered By: Hong Jewell on 12-04-2021 Prealbumin [Mass/Vol] 15.8 mg/dL 18.0-38.0 [facility] Serum or plasma total biliru bin measurement (mass/volume)Ordered By: Hong Jewell on 12-04-2021 Bilirubin [Mass/Vol] 0.8 mg/dL 0.3-1.2 [facility] TROPONIN, HIGH SENSITIVITYon 12-04-2021 HSTROP 91.0 pg/mL Critically high 4.0-51.3 [facility] Comment on above: Result Comment: CUT- OFF POINTS HAVE BEEN ESTABLISHED BASED ON THE FOURTH UNIVERSAL DEFINITIONS OF MYOCARDIAL INFARCTION. THE UPPER REFERENCE LIMIT (URL) OF TROPONIN, DEFINED THE 99TH PERCENTILE OF cTnI DISTRIBUTION IN A REFERENCE POPULATION, HAS BEEN CONFIRMED THE DECISION THRESHOLD FOR PA DIAGNOSIS. Performed By: #### H GARY, CMP #### [facility] [address] [place] [address] [address] Debra Blake HSTROP 107.8 pg/mL Critically high 4.0-51.[address] [facility] Comment on above: Result Comment: CUT- OFF POINTS HAVE BEEN ESTABLISHED BASED ON THE FOURTH UNIVERSAL DEFINITIONS OF MYOCARDIAL INFARCTION. THE UPPER REFERENCE LIMIT (URL) OF TROPONIN, DEFINED THE 99TH PERCENTILE OF cTnI DISTRIBUTION IN A REFERENCE POPULATION, HAS BEEN CONFIRMED THE DECISION THRESHOLD FOR PA DIAGNOSIS. Performed By: #### H KINGSTONPN #### [facility] [address] [place] [address] [address] Debra Blake TSHon 12-04-2021 TSH 0.321 uIU/mL Critically low 0.358-3.74 0 [facility] Comment on above: Performed By: #### H STROPN, CMP #### [facility] [address] [place] [address] [address] Debra Blake TSH DL <= 0.005 mIU/L QnOrde red By: Hong Jewell on 12-04-2021 TSH Qn 0.39 m[IU]/L 0.45-5.33 [facility] Urine lactic acid measuremen tOrdered By: Hong Jewell on 12-04-2021 Lactate (U) [Moles/Vol] 1.3 mmol/L 0.5-2.2 [facility] CBC AUTO DIFFon 12-03-2021 BASO # 0.1 103/ul Normal 0.0-0.1 [facility] Comment on above: Performed By: #### H STROPN #### [facility] [address] [place] [address] [address] Debra Blake Basophils/100 WBC (Bld) 0.6 % Normal 0.2-2.0 [facility] Comment on above: Performed By: #### H STROPN #### [facility] [address] [place] [address] Dr. Debra Blake EO # 0.1 103/ul Normal 0.0-0.7 [facility] Comment on above: Performed By: #### H STROPN #### [facility] [address] [address] [address] Debra Blake Eosinophils/100 WBC (Bld) 1.5 % Normal 0.9-7.0 [facility] Comment on above: Performed By: #### H STROPN #### [facility] [address] [place] [address] Dr. Debra Blake Erythrocyte distribution width (RBC) [Ratio] 14.6 % Normal 11.0-15.0 [facility] Comment on above: Performed By: #### H STROPN #### [facility] [address] [place] [address] Dr. Debra Blake Hematocrit (Bld) [Volume fraction] 27.4 % Critically low 36.0-48.0 [facility] Comment on above: Performed By: #### H STROPN #### [facility] [address] [place] [address] Dr. Debra Blake Hemoglobin (Bld) [Mass/Vol] 9.7 g/dL Critically low 12.0-16.0 [facility] Comment on above: Performed By: #### H STROPN #### [facility] [address] [place] [address] Dr. Debra Blake IG # 0.08 10e3/ul Critically high 0.00-0.03 [facility] Comment on above: Performed By: #### H STROPN #### [facility] [address] [place] [address] Dr. Debra Blake IG % 0.9 % Critically high 0.0-0.5 [facility] Comment on above: Performed By: #### H STROPN #### [facility] [address] [place] [address] Dr. Debra Blake LYMPH # 1.9 103/ul Normal 1.2-3.8 [facility] Comment on above: Performed By: #### H STROPN #### [facility] [address] [place] [address] Dr. Debra Blake Lymphocytes/100 WBC (Bld) 20.9 % Normal 20.5-60.0 [facility] Comment on above: Performed By: #### H STROPN #### [facility] [address] [place] [address] Dr. Debra Blake MANUAL DIFF REQ NO Normal [facility] Comment on above: Performed By: #### H STROPN #### [facility] [address] [place] [address] Dr. Debra Blake MCH (RBC) [Entitic mass] 34.5 pg Critically high 26.7-3 4.0 [facility] Comment on above: Performed By: #### H STROPN #### [facility] [address] [place] [address] Dr. Debra Blake MCHC (RBC) [Mass/Vol] 35.4 g/dL Critically high 29.9-35.2 [facility] Comment on above: Performed By: #### H STROPN #### [facility] [address] [address] [address] Debra Blake MCV (RBC) [Entitic vol] 97.5 fL Normal 81.0-99.0 [facility] Comment on above: Performed By: #### H STROPN #### [facility] [address] [address] [address] Debra Blake MONO # 1.3 103/ul Critically high 0.3-0.8 [facility] Comment on above: Performed By: #### H STROPN #### [facility] [address] [place] [address] Dr. Debra Blake Monocytes/100 WBC (Bld) 14.3 % Critically high 1.7-12. 0 [facility] Comment on above: Performed By: #### H STROPN #### [facility] [address] [place] [address] Dr. Debra Blake NEUT # 5.5 103/ul Normal 1.4-6.5 [facility] Comment on above: Performed By: #### H STROPN #### [facility] [address] [place] [address] Dr. Debra Blake Neutrophils/100 WBC (Bld) 61.8 % Normal 43.0-75.0 [facility] Comment on above: Performed By: #### H STROPN #### [facility] [address] [place] [address] Dr. Debra Blake Platelet mean volume (Bld) [Entitic vol] 9.2 fL Critically low 9.5-13.5 [facility] Comment on above: Performed By: #### H STROPN #### [facility] [address] [place] [address] Dr. Debra Blake PLT 187 103/ul Normal 150-[address] [facility] Comment on above: Performed By: #### H STROPN #### [facility] [address] [place] [address] Dr. Debra Blake RBC 2.81 106/ul Critically low 4.20-5.40 [facility] Comment on above: Performed By: #### H STROPN #### [facility] [address] [place] [address] Dr. Debra Blake WBC 8.9 103/ul Normal 4.0-11.0 [facility] Comment on above: Performed By: #### H STROPN #### [facility] [address] [place] [address] Dr. Debra Blake Covid-19 PCR (CVDTB)on 11-09 SARS-CoV-2 (COVID-19) RNA YVONNE+probe Ql (Unsp spec) Not detected Normal NOT DETECTED [facility] Comment on above: Result Comment: When [...] for this test is supported by the [employer] Operator of Health and Human Service's declaration that [...] used). Performed By: #### C VDTBH #### [facility] [address] [place] [address] Dr. Debra Blake ER URINE PROFILEon Bilirubin Ql (U) Negative Normal NEGATIVE [facility] Comment on above: Performed By: #### U MICRO, ERUR #### [facility] [address] [place] [address] Dr. Debra Blake Clarity (U) CLEAR Normal CLEAR [facility] Comment on above: Performed By: #### U MICRO, ERUR #### [facility] [address] [address] [address] Debra Blake Color (U) LT. YELLOW Normal YELLOW [facility] Comment on above: Performed By: #### U MICRO, ERUR #### [facility] [address] [place] [address] Dr. Debra Blake ERUAHD A micrscopic examina tion will be performed if indicated. Normal [facility] Comment on above: Performed By: #### U MICRO, ERUR #### [facility] [address] [place] [address] Dr. Debra Blake Glucose Ql (U) Negative Normal NEGATIVE [facility] Comment on above: Performed By: #### U MICRO, ERUR #### [facility] [address] [place] [address] Dr. Debra Blake Hemoglobin Ql (U) TRACE-LYSED Abnormal NEGATIVE [facility] Comment on above: Performed By: #### U MICRO, ERUR #### [facility] [address] [place] [address] Dr. Debra Blake Ketones Ql (U) Negative Normal NEGATIVE [facility] Comment on above: Performed By: #### U MICRO, ERUR #### [facility] [address] [place] [address] Dr. Debra Blake LEUKOCYTES MODERATE Abnormal NEGATIVE [facility] Comment on above: Performed By: #### U MICRO, ERUR #### [facility] [address] [place] [address] Dr. Debra Blake Nitrite Ql (U) Negative Normal NEGATIVE [facility] Comment on above: Performed By: #### U MICRO, ERUR #### [facility] [address] [place] [address] Dr. Debra Blake pH (U) 6.0 [pH] Normal 5-[address] [facility] Comment on above: Performed By: #### U MICRO, ERUR #### [facility] [address] [place] [address] Dr. Debra Blake SPEC GRAVITY 1.010 Normal 1.005-<=1. [address] [facility] Comment on above: Performed By: #### U MICRO, ERUR #### [facility] [address] [place] [address] Dr. Debra Blake UA PROTEIN TRACE Normal NEGATIVE/ TRACE [facility] Comment on above: Performed By: #### U MICRO, ERUR #### [facility] [address] [place] [address] Dr. Debra Blake UR MICRO IND INDICATED Normal [facility] Comment on above: Performed By: #### U MICRO, ERUR #### [facility] [address] [place] [address] Dr. Debra Blake Urobilinogen Qn (U) 0.2 {Pascale'U}/dL Normal 0.2 - 1. 0 [facility] Comment on above: Performed By: #### U MICRO, ERUR #### [facility] [address] [place] [address] Dr. Debra Blake MAGNESIUMon 12-03-2021 Magnesium [Mass/Vol] 0.4 mg/dL Critically low 1.8-2.4 [facility] Comment on above: Performed By: #### M G #### [facility] [address] [place] [address] Dr. Debra Blake PROF 14(COMP METB)on 022 Albumin [Mass/Vol] 3.2 g/dL Critically low 3.4-5.0 Th [facility] Comment on above: Performed By: #### H STROPN, CMP #### [facility] [address] [place] [address] Dr. Debra Blake Albumin/Globulin [Mass ratio] 0.8 {ratio} Normal [facility] Comment on above: Performed By: #### H STROPN, CMP #### [facility] [address] [place] [address] Dr. Debra Blake ALP [Catalytic activity/Vol] 64 U/L Normal 46-116 [facility] Comment on above: Performed By: #### H STROPN, CMP #### [facility] [address] [place] [address] Dr. Debra Blake ALT [Catalytic activity/Vol] 11 U/L Critically low 14-59 [facility] Comment on above: Performed By: #### H STROPN, CMP #### [facility] [address] [address] [address] Debra Blake Anion gap [Moles/Vol] 19.5 mmol/L Normal Th [facility] Comment on above: Performed By: #### H STROPN, CMP #### [facility] [address] [address] [address] Debra Blake AST [Catalytic activity/Vol] 19 U/L Normal 15-37 [facility] Comment on above: Performed By: #### H STROPN, CMP #### [facility] [address] [address] [address] Debra Blake Bilirubin [Mass/Vol] 0.5 mg/dL Normal 0.2-1.0 [facility] Comment on above: Performed By: #### H STROPN, CMP #### [facility] [address] [place] [address] Dr. Debra Blake Calcium [Mass/Vol] 5.8 mg/dL Critically low 8.5-10.1 [facility] Comment on above: Performed By: #### H STROPN, CMP #### [facility] [address] [place] [address] Dr. Debra Blake Chloride [Moles/Vol] 88 mmol/L Critically low 98-107 [facility] Comment on above: Performed By: #### H STROPN, CMP #### [facility] [address] [place] [address] Dr. Debra Blake CO2 [Moles/Vol] 19.7 mmol/L Critically low 21.0-32.0 [facility] Comment on above: Performed By: #### H STROPN, CMP #### [facility] [address] [place] [address] Dr. Debra Blake Creatinine [Mass/Vol] 2.77 mg/dL Critically high 0.55-1.02 [facility] Comment on above: Performed By: #### H STROPN, CMP #### [facility] [address] [place] [address] Dr. Debra Blake EGFR-AF PALAUAN 21 mL/min/1.73m2 Critically low >=60 [facility] Comment on above: Performed By: #### H KINGSTONPN, CMP #### [facility] [address] [address] [address] Debra Blake EGFR-NON AF PALAUAN 18 mL/min/1.73m2 Critically low >=60 [facility] Comment on above: Performed By: #### H STROPN, CMP #### [facility] [address] [address] [address] Debra Blake Globulin (S) [Mass/Vol] 3.9 g/dL Normal T [facility] Comment on above: Performed By: #### H KINGSTONPN, CMP #### [facility] [address] [place] [address] Dr. Debra Blake Glucose [Mass/Vol] 99 mg/dL Normal 74-106 [facility] Comment on above: Performed By: #### H KINGSTONPN, CMP #### [facility] [address] [place] [address] Dr. Debra Blake Potassium [Moles/Vol] 3.2 mmol/L Critically low 3.5-5.1 [facility] Comment on above: Performed By: #### H STROPN, CMP #### [facility] [address] [place] [address] Dr. Debra Blake Protein [Mass/Vol] 7.1 g/dL Normal 6.4-8.2 [facility] Comment on above: Performed By: #### H STROPN, CMP #### [facility] [address] [place] [address] Dr. Debra Blake Sodium [Moles/Vol] 124 mmol/L Critically low 136-145 Th [facility] Comment on above: Performed By: #### H STROPN, CMP #### [facility] [address] [place] [address] Dr. Debra Blake Urea nitrogen [Mass/Vol] 28.0 mg/dL Critically high 7.0-18 .0 [facility] Comment on above: Performed By: #### H STROPN, CMP #### [facility] [address] [place] [address] Dr. Debra Blake Urea nitrogen/Creatinine [Mass ratio] 10.1 mg/mg Normal [facility] Comment on above: Performed By: #### H GARY, CMP #### [facility] [address] [place] [address] Dr. Debra Blake TROPONIN, HIGH SENSITIVITYon 12-03-2021 HSTROP 96.9 pg/mL Critically high 4.0-51.[address] [facility] Comment on above: Result Comment: CUT- OFF POINTS HAVE BEEN ESTABLISHED BASED ON THE FOURTH UNIVERSAL DEFINITIONS OF MYOCARDIAL INFARCTION. THE UPPER REFERENCE LIMIT (URL) OF TROPONIN, DEFINED THE 99TH PERCENTILE OF cTnI DISTRIBUTION IN A REFERENCE POPULATION, HAS BEEN CONFIRMED THE DECISION THRESHOLD FOR PA DIAGNOSIS. Performed By: #### H GARY, CMP #### [facility] [address] [place] [address] Dr. Debra Blake HSTROP 102.0 pg/mL Critically high 4.0-51.[address] [facility] Comment on above: Result Comment: CUT- OFF POINTS HAVE BEEN ESTABLISHED BASED ON THE FOURTH UNIVERSAL DEFINITIONS OF MYOCARDIAL INFARCTION. THE UPPER REFERENCE LIMIT (URL) OF TROPONIN, DEFINED THE 99TH PERCENTILE OF cTnI DISTRIBUTION IN A REFERENCE POPULATION, HAS BEEN CONFIRMED THE DECISION THRESHOLD FOR PA DIAGNOSIS. Performed By: #### H GARY, CMP #### [facility] [address] [place] [address] Dr. Debra Blake URINE MICROSCOPIC ONLYon BACTERIA SMALL Abnormal NONE SEEN [facility] Comment on above: Performed By: #### U MICRO, ERUR #### [facility] [address] [place] [address] Dr. Debra Blake Bacteria identified Cx Nom (U) INDICATED Normal [facility] Comment on above: Performed By: #### U MICRO, ERUR #### [facility] [address] [place] [address] Dr. Debra Blake CAST NONE SEEN Normal NONE SEEN [facility] Comment on above: Performed By: #### U MICRO, ERUR #### [facility] [address] [place] [address] Dr. Debra Blake Crystals LM Nom (Urine sed) NONE SEEN Normal NONE SEEN [facility] Comment on above: Performed By: #### U MICRO, ERUR #### [facility] [address] [place] [address] Dr. Debra Blake Epithelial cells LM Ql (Urine sed) FEW Abnormal NONE SEEN /RARE [facility] Comment on above: Performed By: #### U MICRO, ERUR #### [facility] [address] [place] [address] Dr. Debra Blake MUCOUS NONE SEEN Normal NONE SEEN [facility] Comment on above: Performed By: #### U MICRO, ERUR #### [facility] [address] [place] [address] Dr. Debra Blake RBC 2-5 Abnormal 0-2 [facility] Comment on above: Performed By: #### U MICRO, ERUR #### [facility] [address] [place] [address] Dr. Debra Blake WBC (U) [#/Vol] /uL Abnormal NONE SEEN [facility] Comment on above: Performed By: #### U MICRO, ERUR #### [facility] [address] [place] [address] Dr. Debra Blake XR CHEST 1 Von [...] by: CODY ALEXANDER Date: 2021-12-03 19:[address] [facility] Vital Signs Date Time Vital Sign Value Performing Clinician Facility 07-02-2024 16:32-0400 SaO2% (BldA) [Mass fraction] 91 % [facility] Comment on above: Performed By: #### ABG ####[facility] ([id number])[address] [place] [address] 06-29-2024 20:56-0400 SaO2% (BldA) [Mass fraction] 99 % [facility] Comment on above: Performed By: #### VBG ####[facility] ([id number])[address] [place] [address] 06-25-2024 04:20-0400 SaO2% (BldA) [Mass fraction] 100 % [facility] Comment on above: Performed By: #### ABG ####[facility] ([id number])[address] [place] [address] 06-24-2024 14:41-0400 SaO2% (BldA) [Mass fraction] 100 % [facility] Comment on above: Performed By: #### ABG ####[facility] ([id number])[address] [place] [address] 06-24-2024 04:59-0400 SaO2% (BldA) [Mass fraction] 100 % [facility] Comment on above: Performed By: #### ABG ####[facility] ([id number])[address] [place] [address] 06-22-2024 05:02-0400 SaO2% (BldA) [Mass fraction] 97 % [facility] Comment on above: Performed By: #### ABG ####[facility] ([id number])[address] [place] [address] 06-21-2024 05:57-0400 SaO2% (BldA) [Mass fraction] 97 % [facility] Comment on above: Performed By: #### ABG ####[facility] ([id number])[address] [place] [address] 06-20-2024 04:22-0400 SaO2% (BldA) [Mass fraction] 100 % [facility] Comment on above: Performed By: #### ABG ####[facility] ([id number])[facility] [place] [address] 06-16-2024 04:39-0400 SaO2% (BldA) [Mass fraction] 94 % [facility] Comment on above: Performed By: #### ABG ####[facility] ([id number])[address] [place] [address] 06-15-2024 03:45-0500 SaO2% (BldA) [Mass fraction] 97 % [facility] Comment on above: Performed By: #### ABG ####[facility] ([id number])[address] [place] [address] 06-14-2024 16:44-0500 SaO2% (BldA) [Mass fraction] 97 % [facility] Comment on above: Performed By: #### ABG ####[facility] ([id number])[address] [place] [address] 06-14-2024 12:03-0500 SaO2% (BldA) [Mass fraction] 96 % [facility] Comment on above: Performed By: #### VBG ####[facility] ([id number])[address] [place] [address] 06-13-2024 20:05-0500 SaO2% (BldA) [Mass fraction] 88 % [facility] Comment on above: Performed By: #### VBG ####[facility] ([id number])[address] [place] [address] 12-27-2023 14:41-0400 Diastolic blood pressure 100 mm[Hg] [facility] 12-27-2023 14:41-0400 Heart rate 86 /min Katie Eva SAVAGE Work Phone: [facility] 12-27-2023 14:41-0400 Systolic blood pressure 184 mm[Hg] [facility] 12-27-2023 14:35-0400 Body height 165.1 cm [facility] 12-27-2023 14:35-0400 Body mass index (BMI) [Ratio] 28.3 kg/m2 [facility] 12-27-2023 14:35-0400 Body temperature 98 [degF] [facility] 12-27-2023 14:35-0400 Body weight 77.16 kg [facility] 12-27-2023 14:35-0400 Heart rate 138 /min [facility] 12-27-2023 14:35-0400 Respiratory rate 20 /min [facility] 12-27-2023 14:35-0400 SaO2% (BldA) [Mass fraction] 99 % [facility] 09-28-2023 14:43-0400 Body height 165.1 cm [facility] 09-28-2023 14:43-0400 Body mass index (BMI) [Ratio] 25.6 kg/m2 [facility] 09-28-2023 14:43-0400 Body weight 69.85 kg [facility] 09-28-2023 14:43-0400 Diastolic blood pressure 76 mm[Hg] [facility] 09-28-2023 14:43-0400 Heart rate 77 /min [facility] 09-28-2023 14:43-0400 SaO2% (BldA) [Mass fraction] 98 % [facility] 09-28-2023 14:43-0400 Systolic blood pressure 118 mm[Hg] [facility] 03-15-2022 20:42-0500 Diastolic blood pressure 89 mm[Hg] DO [employer] Work Phone: [facility] 03-15-2022 20:42-0500 Heart rate 98 /min DO [employer] Work Phone: [facility] 03-15-2022 20:42-0500 Respiratory rate 18 /min DO Segundo Rawls Work Phone: [facility] 03-15-2022 20:42-0500 SaO2% (BldA) [Mass fraction] 99 % DO Segundo Rawls Work Phone: [facility] 03-15-2022 20:42-0500 Systolic blood pressure 158 mm[Hg] DO Segundo [employer] Work Phone: [facility] 03-15-2022 18:02-0500 Body temperature 98 [degF] DO Segundo Rawls Work Phone: [facility] 03-15-2022 17:59-0500 Body height 162.56 cm DO Segundo Rawls Work Phone: [facility] 03-15-2022 17:59-0500 Body weight 69.3 kg DO Segundo [employer] Work Phone: [facility] 03-15-2022 17:40-0500 Body height 165.1 cm William Vaibhav Other [facility] Other 03-15-2022 17:40-0500 Body mass index (BMI) [Ratio] 25.39 kg/m2 William Vaibhav Other [facility] Other 03-15-2022 17:40-0500 Body temperature 96.6 [degF] William Vaibhav Other [facility] Other 03-15-2022 17:40-0500 Body weight 69.22 kg William Vaibhav Other [facility] Other 03-15-2022 17:40-0500 Diastolic blood pressure 137 mm[Hg] William Vaibhav Other [facility] Other 03-15-2022 17:40-0500 Respiratory rate 18 /min William Vaibhav Other [facility] Other 03-15-2022 17:40-0500 SaO2% (BldA) [Mass fraction] 98 % William Vaibhav Other [facility] Other 03-15-2022 17:40-0500 Systolic blood pressure 221 mm[Hg] William Vaibhav Other [facility] Other 12-10-2021 11:52-0400 Body temperature 98 [degF] DO Segundo House Work Phone: [facility] 12-10-2021 11:52-0400 Diastolic blood pressure 82 mm[Hg] DO Segundo House Work Phone: [facility] 12-10-2021 11:52-0400 Heart rate 77 /min DO Segundo House Work Phone: [facility] 12-10-2021 11:52-0400 Respiratory rate 16 /min DO Segundo House Work Phone: [facility] 12-10-2021 11:52-0400 SaO2% (BldA) [Mass fraction] 99 % DO Segundo House Work Phone: [facility] 12-10-2021 11:52-0400 Systolic blood pressure 132 mm[Hg] DO Segundo House Work Phone: [facility] 12-10-2021 06:00-0400 Body weight 88 kg DO Segundo House Work Phone: [facility] 12-08-2021 14:53-0400 Body height 165.1 cm DO Segundo House Work Phone: [facility] Encounters Encounter Date Encounter Type Care Provider Facility Start: 01-01-2025 ambulatory SEO INTERN FAVIO CHILEL Fa cility:[facility] Start: 12-18-2024 End: 12-18-2024 ambulatory SEO INTERN FAVIO CHILEL Facility:[facility] Start: 12-11-2024 ambulatory SEO INTERN FAVIO CHILEL Faci lity:[facility] Start: 09-17-2024 End: 09-24-2024 Evaluation and management of inpatient Rosalinda Alfonso Facility:[facility] Start: 09-12-2024 End: 09-12-2024 ambulatory JERARDO RUTH [facility] Start: 09-09-2024 End: 09-09-2024 Telephone encounter Jerardo Ruth BDC MANAGER Work Phone: [facility] Start: 08-28-2024 End: 08-28-2024 Clinisync Result Encounter Jerardo Ruth BDC MANAGER Work Phone: [facility] Unsolicited Start: 08-28-2024 End: 08-28-2024 Clinisync Result Encounter Jerardo Ruth BDC MANAGER Work Phone: [facility] Unsolicited Start: 08-26-2024 End: 08-26-2024 Telephone encounter Jerardo Ruth BDC MANAGER Work Phone: [facility] Start: 08-16-2024 End: 08-16-2024 Telephone encounter Jerardo Ruth BDC MANAGER Work Phone: [facility] Start: 07-26-2024 End: 07-26-2024 Telephone encounter Jerardo Ruth BDC MANAGER Work Phone: [facility] Start: 07-09-2024 End: 07-09-2024 ambulatory Quintin Forman MD Work Phone: [facility] Start: 06-14-2024 ambulatory [facility] Start: 06-13-2024 End: 07-03-2024 [facility] Start: 06-13-2024 End: 06-13-2024 ambulatory UNKNOWN PROVIDER Facility:[facility] Start: 06-13-2024 Non-patient / Non-visit Katie Velasquez APRN Work Phone: [facility] Work Phone: Start: 06-12-2024 Non-patient / Non-visit Katie Medinaraul CARE TECHNICIAN Work Phone: [facility] Work Phone: Start: 06-12-2024 End: 06-12-2024 ambulatory Katie Adanmechemechelleraul CARE TECHNICIAN Work Phone: [facility] Work Phone: Start: 06-12-2024 End: 06-12-2024 Departed Referred Katie Adaneda CARE TECHNICIAN Work Phone: [facility] Start: 04-22-2024 End: 04-28-2024 Non-patient / Non-visit Katie Eva CARE TECHNICIAN Work Phone: [facility] Work Phone: Start: 02-19-2024 End: 02-19-2024 ambulatory Katie Medinaraul CARE TECHNICIAN Work Phone: [facility] Work Phone: Start: 02-19-2024 End: 02-19-2024 Departed Referred Katie Adaneda CARE TECHNICIAN Work Phone: [facility] Start: 12-27-2023 End: 12-27-2023 ambulatory [facility] Work Phone: Start: 12-27-2023 End: 12-27-2023 Patient encounter procedure [facility] Work Phone: Start: 10-02-2023 End: 10-02-2023 Telephone encounter [facility] Start: 09-28-2023 End: 09-28-2023 ambulatory [facility] Work Phone: Start: 09-28-2023 End: 09-28-2023 Patient encounter procedure [facility] Work Phone: Start: 03-15-2022 End: 03-15-2022 Emergency department patient visit DO Segundo Rawls Work Phone: [facility] Start: 03-15-2022 End: 03-15-2022 ambulatory William Vaibhav Other [facility] [employer] Other Start: 03-15-2022 Office outpatient visit 25 minutes William Vaibhav [facility] Start: 12-19-2021 End: 12-19-2021 ambulatory JUNO HERNÁNDEZ Facility:[facility] Start: 12-04-2021 End: 12-10-2021 Evaluation and management of inpatient DO Segundo Wheaton Work Phone: [facility] [employer] Start: 12-03-2021 End: 12-04-[address] UNIQUE AUSTIN Facility: Start: 07-04-2017 End: 07-05-2017 Ambulatory DEFAULT PHYSICIAN Facility:[facility] Start: 05-02-2017 End: 05-03-2017 Ambulatory DEFAULT PHYSICIAN Facility:[facility] Procedures Date Procedure Procedure Detail Performing Clinician Start: 09-17-2024 Antibody screen Krish Velasquez Comment on above: Order Comment: Trans fuse now? Y Number of units to transfuse now? 1 Transfuse now? Y Number of units to transfuse now? 1 Result Comment: PERF ORMED BY: [facility] [address] [place] [address] PATHOLOGIST DRINK WAITER DENILSON COSTA M.D. Start: 08-28-2024 ALL HEMOGLOBIN Jerardo C Mi ller BDC MANAGER Work Phone: Start: 03-15-2022 [facility] Work Phone: Start: 12-08-2021 CT of abdomen and pe lvis without contrast DO Segundo [employer] Work Phone: Start: 12-07-2021 Ultrasonography of b ilateral kidneys DO Segundo Rawls Work Phone: Start: 12-06-2021 CT of chest without contrast DO Segundo Rawls Work Phone: Measurement of occul t blood in stool specimen using immunoassay DO Segundo Rawls Work Phone: Urine culture DO Segundo Salomon se Work Phone: Plan of Treatment Date Care Activity Detail Author Start: 07-03-2025 Adult BMI Screening Adult BMI Screening [facility] Start: 12-09-2024 Influenza vaccination Influenza Vaccine [facility] Start: 07-17-2024 End: 07-17-2024 Patient encounter procedure 07/17/2024 2:30 PM EDT Office Visit [facility] [address] [place] [address] [place] [address] Rosalinda Nathan [address] [place] [address], [facility], [place] [address] [facility] Start: 06-12-2024 Urine culture [facility] Start: 06-12-2024 Bacteria identified in Urine by Culture Urine Culture [facility] Start: 12-27-2023 Patient referral [facility] Work Phone: Start: 12-10-2023 Influenza vaccination Influenza Vaccine [facility] Start: 09-28-2023 Patient referral [facility] Work Phone: Start: 12-10-2021 [facility] Work Phone: Start: 12-08-2021 Referral to urologist [facility] Work Phone: Start: 12-06-2021 Referral to motor grader rough grade [facility] Work Phone: Start: 12-05-2021 Referral to intensive care nurse [facility] Work Phone: Start: 12-05-2021 Administration of prophylactic treatment [facility] Work Phone: Start: 12-05-2021 Ascorbic acid measurement [facility] Work Phone: Start: 12-04-2021 Referral to quill skinner [facility] Work Phone: Start: 12-04-2021 Referral to Metal Model Builder [facility] Work Phone: Start: 12-04-2021 Hospital admission [facility] Work Phone: Start: 2013 Administration of varicella zoster vaccine Zoster (Shingles) Vaccine (1 of 2) [facility] Start: 01-31-1984 Screening for malignant neoplasm of cervix Pap Smear [facility] Start: 1982 DTaP,Tdap and Td Vaccines (1 - Tdap) DTaP,Tdap and Td Vaccines (1 - Tdap) [facility] Start: 1981 Adult BMI Screening Adult BMI Screening [facility] Start: 1975 Depression Screening Depression Screening [facility] Start: 1975 Tobacco Screening Tobacco Screening [facility] Blood chemistry [facility] Work Phone: Comprehensive metabo lic 2000 panel - Serum or Plasma [facility] MG Breast - bilatera l Diagnostic [facility] Patient Education High Blood Pre ssure ED [facility] Work Phone: Patient referral [facility] Work Phone: Phosphatidylethanol [Mass/volume] in Blood [facility] Work Phone: Thiamine [Moles/volu me] in Blood [facility] Work Phone: US Breast - left limited [facility] Payers Date Payer Category Payer Self-pay 2023 Medicaid [facility] MEDICAID [id number] 2023 Medicaid [id number] 2023 Private Health Insurance [employer] [id number] 2022 Unknown [id number] 1965 Unknown [id number] 2..[id number]. 593 1963 Unknown [id number] 2.840.1.415402.3.579.2. 593 1963 Unknown [id number] 2.16840.1.725317.3.579.2. 732 1963 Unknown [id number] 2.16840.1.261238.3.579.2. 1286 1963 Unknown [id number] 2.16840.1.146559.3.579.2. 1286 1963 Unknown [id number] 2.16840.1.945085.3.579.2. 1286 1963 Unknown [id number] 2.16.840.1.898959.3.579.2. 1286 1963 Unknown [id number] 2.16.840.1.209666.3.579.2. 1286 1963 Unknown [id number] 2.16.840.1.863115.3.579.2. 1286 1963 Unknown [id number] 2.16.840.1.773749.3.579.2. 727 1965 Unknown [id number] 2.16.840.1.370114.3.579.2. 727 1959 Unknown [id number] Unknown Unknown [id number] 2.16.840.1.594431.3.579.2. 531 Unknown [id number] 2.16.840.1.670641.3.579.2. 531 Unknown [id number] 2.16.840.1.709728.3.579.2. 531 Social History Date Type Detail Facility Start: 12-08-2021 End: 09-28-2023 Tobacco smoking status NEIS Smoker (finding) [facility] Start: 1965 Sex Assigned At Female [facility] Start: 09-19-2018 Sex Assigned At N [facility] [employer] Other Start: 11-13-2014 End: 02-21-2024 Sex Female (finding) [facility] Tobacco smoking status RUST Tobacco smoking consumption unknown [facility] Start: 09-19-2018 History of Social function [facility] Childcare Unknown [facility] Start: 1965 Sex assigned at [facility] Goals Date Patient Goal Desired Activity /State Personal health goal Comment on above: Formatting of this n ote might be different from the original. Evaluation of progress towards goal: Progress towards discharge Functional Status Date Assessment Result Facility 12-10-2021 Functional status Patient is Pro gressing Toward Baseline [facility] Work Phone: Mental Status Date Assessment Result Facility 12-10-2021 Cognitive function Cognitive Sta tus Patient at Baseline [facility] Work Phone: Clinical Notes 12-04-2021 to 09-09-2024 Telephone Encounter - Jerardo Ruth NP - 09/09/2024 3:28 PM EDTTelephone Encounter - Jerardo Ruth NP - 09/09/2024 3:28 PM EDTTelephone Encounter - Jerardo Ruth NP - 08/26/2024 4:52 PM EDT Note Date & Type Note Facility 09-09-2024 Telephone encount er Note Requested Prescriptions Signed Prescriptions Disp Refills HYDROcodone-acetaminophen (Salix) 5-325 MG tablet 120 tablet 0 Sig: Take 1 tablet by mouth every 6 (six) hours if needed for severe pain Authorizing Provider: JERARDO RUTH [facility] 09-09-2024 Miscellaneous Notes Formattin g of this note is different from the original. Requested Prescriptions Signed Prescriptions Disp Refills HYDROcodone-acetaminophen (Salix) 5-325 MG tablet 120 tablet 0 Sig: Take 1 tablet by mouth every 6 (six) hours if needed for severe pain Authorizing Provider: JERARDO RUTH documented in this encounter [facility] 08-26-2024 Telephone encount er Note Requested Prescriptions Signed Prescriptions Disp Refills LORazepam (Ativan) 0.5 MG tablet 42 tablet 0 Sig: Take 1 tablet (0.5 mg) by mouth every 8 (eight) hours if needed for anxiety for up to 14 days Authorizing Provider: JERARDO RUTH [facility] 08-26-2024 Miscellaneous Notes Formattin g of this note is different from the original. Requested Prescriptions Signed Prescriptions Disp Refills LORazepam (Ativan) 0.5 MG tablet 42 tablet 0 Sig: Take 1 tablet (0.5 mg) by mouth every 8 (eight) hours if needed for anxiety for up to 14 days Authorizing Provider: JERARDO RUTH documented in this encounter [facility] 08-16-2024 Telephone encount er Note Requested Prescriptions Signed Prescriptions Disp Refills LORazepam (Ativan) 1 MG tablet 30 tablet 0 Sig: Take 1 tablet (1 mg) by mouth Daily Give daily before HD on dialysis days Authorizing Provider: JERARDO RUTH [facility] 08-16-2024 Miscellaneous Notes Formattin g of this note is different from the original. Requested Prescriptions Signed Prescriptions Disp Refills LORazepam (Ativan) 1 MG tablet 30 tablet 0 Sig: Take 1 tablet (1 mg) by mouth Daily Give daily before HD on dialysis days Authorizing Provider: JERARDO RUTH documented in this encounter [facility] 07-26-2024 Telephone encount er Note Requested Prescriptions Signed Prescriptions Disp Refills LORazepam (Ativan) 0.5 MG tablet 28 tablet 0 Sig: Take 2 tablets (1 mg) by mouth Daily for 14 days Give daily before HD on Mon, , Mon, , Monday. Authorizing Provider: JERARDO RUTH [facility] 07-26-2024 Miscellaneous Notes Formattin g of this note is different from the original. Requested Prescriptions Signed Prescriptions Disp Refills LORazepam (Ativan) 0.5 MG tablet 28 tablet 0 Sig: Take 2 tablets (1 mg) by mouth Daily for 14 days Give daily before HD on Mon, , Mon, , Monday. Authorizing Provider: JERARDO RUTH documented in this encounter [facility] 07-09-2024 History of Presen t illness Narrative BAL cultures collected on 07/02 growing MRSA the results were finalized after patient's discharge. Currently patient is residing at [facility], which were contacted and patient caring staff was notified. documented in this encounter [facility] 12-27-2023 Evaluation note Diagnosis Onset Date [...] 27, 2023 2:30pm Rheumatoid arthritis acute Dec emb2023 2:30pm Stress-induced cardiomyopathy acute December 27, 2023 2:30pm Type 2 myocardial infarction acute December 27, 2023 2:30pm Weakness acute December 2:30pm [facility] Work Phone: 1(429) 971-189906-24-2024 Miscellaneous Notes* Telephone Encounter - Abhijit Pink CMA - 10/02/2023 9:55 AM EDT Called patient in regards to referral and we were to far of a drive. Advised patient to call referring provider to look for someone closer. [facility] encounter Note* Telephone Encounter - Abhijit Pink CMA - 10/02/2023 9:55 AM EDT Called patient in regards to referral and we were to far of a drive. Advised patient to call referring provider to look for someone closer. [facility]12-06-2022 Evaluation note* Encounter Date Diagnosis Assessment Notes [...] Advised to go to the emergency room. [employer] Other 09-02-2022 Discharge summary Author Hong Jewell [facility] December 10, 2021 7:47pm Note Date/Time December 10, 2021 1:26pm [facility] [address] [place] [address] Discharge Summary Signed Patient: Orestes Alvares MR#: [id number] : 1965 Acct:[id number] Age/Sex: 56 / F Adm Date: 2 Loc: Room: [address] [place] [address]: Hong Jewell DO Copies to: [...] about 24 hours before bed opened up. [facility]. Here in the hospital she [...] ablation for that problem x2 at the [facility]. She had nephrology consultation. He felt that [...] % (Auto) 62.7, Lymph % (Auto) 21.7, [place] % (Auto) 11.2, Eos % (Auto) 3.5, Baso % (Auto) 0.9, Neut # (Auto) 3.9, Lymph # (Auto) 1.4, [place] # (Auto) 0.7, Eos # (Auto) 0.2, Baso # (Auto) 0.1, Nucleated RBC % (auto) 0.0 12/09/21 18:15: Hgb 8.0 L, Hct 24.2 L 12/09/21 14:48: Double Strand DNA Ab <1 12/07/21 12:45: Ur Random Albumin 69.2, U Random Total Protein 51.3, U Loyeh-1-Fdbictck (%) 3.1, U Random r-3-Qumdrbic % 6.0, U Random b-Globulin % 13.5, [...] <Electronically signed by Hong Jewell DO> 12/10/211946 [facility] Work Phone: 1(145) 281-660009-02-2022 Progress note Author William Esposito [facility] December 10, 2021 11:31am Note Date/Time December 10, 2021 11:24am [facility] [address] [place] [address] Nephrology Progress Note Signed Patient: Orestes Alvares MR#: [id number] : 1965 Acct:[id number] Age/Sex: 56 / F Adm Date: 2 Loc: Room: [address] [place] [address] Type: ADM IN Attending Dr: Hong Jewell DO Copies to: ~ Date of Service: 12/10/2021 Subjective Subjective Narrative: Mrs. Alvares is a 56-year-old white female with history of COPD, smoker, alcohol abuse and hypothyroidism on levothyroxine who was transferred from [facility] on 12/04 for abnormal blood work [...] g of calcium before transfer to [facility]. Today's creatinine is slightly better 1.87 mg/dL [...] visible mass Skin: No rashes or bruises [employer] SALESPERSON: Awake,Alert, following simple command Musculoskeletal: No joint [...] Tablet) 40 mg PO DAILY.8A [facility] Stop: 12/10/22 07:59 Last Admin: 12/10/21 08:31 [...] Tablet) 50 mcg PO DAILY.0630 [facility] Stop: 12/05/22 06:29 Last Admin: 12/10/21 07:31 [...] 100 Mg Tablet) 200 mg PO DAILY [facility] Stop: 12/10/22 08:59 Last Admin: 12/10/21 08:31 [...] signed by William Esposito MD> 12/10/21 1131 [facility] Work Phone: 1(847) 968-305109-01-2022 Progress note Author Hong Jewell [facility] December 09, 2021 4:10pm Note Date/Time December 09, 2021 4:10pm [facility] [address] [place] [address] Hospitalist Progress Note Signed Patient: Orestes Alvares MR#: [id number] : 1965 Acct:[id number] Age/Sex: 56 / F Adm Date: 2 Loc: Room: [address] [place] [address] Type: ADM IN Attending Dr: Hong Jewell [...] signed by Hong Jewell DO> 12/09/21 1610 [facility] Work Phone: 1(330) 121-294009-01-2022 Progress note Author William Esposito [facility] December 09, 2021 10:58am Note Date/Time December 09, 2021 10:58am [facility] [address] [place] [address] Nephrology Progress Note Signed Patient: Orestes Alvares MR#: [id number] : 1965 Acct:[id number] Age/Sex: 56 / F Adm Date: 2 Loc: Room: [address] [place] [address] Type: ADM IN Attending Dr: Hong Jewell DO Copies to: ~ Date of Service: 12/09/2021 Subjective Subjective Narrative: Mrs. Alvares is a 56-year-old white female with history of COPD, smoker, alcohol abuse and hypothyroidism on levothyroxine who was transferred from [facility] on 12/04 for abnormal blood work [...] g of calcium before transfer to [facility]. Today's creatinine is slightly better 1.87 mg/dL [...] visible mass Skin: No rashes or bruises [employer] SALESPERSON: Awake,Alert, following simple command Musculoskeletal: No joint [...] mg PO DAILY.8A [facility] Stop: 12/10/22 07:59 Magnesium Sulfate (Magnesium Sulf [...] Tablet) 50 mcg PO DAILY.0630 [facility] Stop: 12/05/22 06:29 Last Admin: 12/09/21 05:30 Dose: 50 mcg Metoprolol Succinate (Metoprolol Succinate 100 Mg Tab.Er.24h) 100 mg PO DAILY [facility] Stop: 12/04/22 17:43 Last Admin: 12/09/21 08:14 [...] Unique Enciso M.D.12/08/2021 5:49 PM Dictation Location: [place] [address] Any impression(s) listed above is documentation that [...] <Electronically signed by William Esposito MD> 12/09/21 1057 [facility] Work Phone: 1(872) 995-609708-31-2022 Progress note Author Claude Castellanos [facility] December 08, 2021 6:59pm Note Date/Time December 08, 2021 6: 59pm [facility] [address] [place] [address] Hospitalist Progress Note Signed Patient: Orestes Alvares MR#: [id number] : 1965 Acct:[id number] Age/Sex: 56 / F Adm Date: 2 Loc: Room: 5L8562-7 Type: ADM IN Attending Dr: Claude Castellanos [...] Patch 21 Mg/24hr 1 Each Patch.Td24 TRANSDERML 08/29/23 08:59 Not Given DAILY [facility] Omeprazole 20 [...] antibiotic with Levaquin 5. Alcohol abuse/dependence Continue [facility] protocol 6. Hydronephrosis Patient was noted to have very mild right-sided hydronephrosis on renal ultrasound per urology.? Urology with recommendations for cystoscopy and urethral dilation as an outpatient. Documented By: Claude Castellanos MD 12/08/211853 Signed By: <Electronically signed by Claude Castellanos MD> 12/08/211858 [facility] Work Phone: 1(826) 193-260208-31-2022 Consult note Author Luis Sams [facility] December 08, 2021 3:55pm Note Date/Time December 08, 2021 3: 55pm [facility] [address] [place] [address] Urology Consult Note Signed Patient: Orestes Alvares MR#: [id number] : 1965 Acct:[id number] Age/Sex: 56 / F Adm Date: 2 Loc: Room: [address] [place] [address] Type: ADM IN Attending Dr: Claude Castellanos MD Copies to: DO Claude Rose MD Patrick R Waters, MD~ History of Present Illness Consult Details Consult Date: 12/08/2021 Requesting Provider: Claude Castellanos MD HPI: This lady was admitted to the hospital after transfer from [facility] dueto low sodium, calcium and magnesium [...] % (Auto) 55.8, Lymph % (Auto) 27.7, [place] % (Auto) 13.1, Eos % (Auto) 2.7, Baso % (Auto) 0.7, Neut # (Auto) 3.1, Lymph # (Auto) 1.6, [place] # (Auto) 0.7, Eos # (Auto) 0.2, [...] % (Auto) 83.6, Lymph % (Auto) 7.8, [place] % (Auto) 8.3, Eos % (Auto) 0.1, Baso % (Auto) 0.2, Neut # (Auto) 6.2, Lymph # (Auto) 0.6 L, [place] # (Auto) 0.6, Eos # (Auto) 0.0, [...] <Electronically signed by MD Luis Sams> 12/08/21 2397 [facility] Work Phone: 1([phone]) 730-126908-31-2022 Progress note Author William Esposito [facility] December 08, 2021 11:01am Note Date/Time December 08, 2021 10 :55am [facility] [address] [place] [address] Nephrology Progress Note Signed Patient: Orestes Alvares MR#: [id number] : 1965 Acct:[id number] Age/Sex: 56 / F Adm Date: 2 Loc: 4 Room: 5C5184-8 Type: ADM IN Attending Dr: Claude Castellanos MD Copies to: ~ Date of Service: 12/08/2021 Subjective Subjective Narrative: Mrs. Alvares is a 56-year-old white female with history of COPD, smoker, alcohol abuse and hypothyroidism on levothyroxine who was transferred from [facility] on 12/04 for abnormal blood work [...] g of calcium before transfer to [facility]. Today's creatinine is slightly better 1.87 mg/dL [...] visible mass Skin: No rashes or bruises [employer] SALESPERSON: Awake,Alert, following simple command Musculoskeletal: No joint [...] Tablet) 500 mg PO BID.WITH.BFAST.LUNCH [facility] Stop: 12/05/22 07:59 Last Admin: 12/08/21 08:29 Dose: 500 mg Calcium Carbonate (Calcium Carbonate 500 Mg Tablet) 1,000 mg PO BID [facility] Stop: 12/06/22 09:29 Last Admin: 12/08/21 08:29 [...] DAILY [facility] Stop: 12/04/22 13:59 Last Admin: 12/08/21 09:44 Dose: 100 mls/hr Thiamine HCl 200 mg/ Sodium (Chloride) 102 mls @ 204 mls/hr IV TID [facility] Stop: 12/04/22 21:59 Last Infusion: 12/08/21 08:59 Dose: Infused Levofloxacin (Levofloxacin 750 Mg Tablet) 750 mg PO Q48H [facility] Levothyroxine Sodium (Levothyroxine 50 Mcg Tablet) 50 mcg PO DAILY.06 [facility] Stop: 12/05/22 06:29 Last Admin: 12/08/21 05:51 Dose: 50 mcg Metoprolol Succinate (Metoprolol Succinate 100 Mg Tab.Er.24h) 100 mg PO DAILY [facility] Stop: 12/04/22 17:43 Last Admin: 12/08/21 08:29 [...] DAILY [facility] Stop: 12/05/22 08:59 Last Admin: 12/08/21 08:28 [...] Unique Enciso M.D.12/07/2021 4:27 PM [employer] Location: [place] [address] Any impression(s) listed above is documentation that [...] <Electronically signed by William Esposito MD> 12/08/21 1107 [facility] Work Phone: 1(975) 706-727908-30-2022 Progress note Author Claude Castellanos [facility] December 07, 2021 8:00pm Note Date/Time December 07, 2021 8: 00pm [facility] [address] [place] [address] Hospitalist Progress Note Signed Patient: Orestes Alvares MR#: [id number] : 1965 Acct:[id number] Age/Sex: 56 / F Adm Date: 2 Loc: Room: 9A7934-8 Type: ADM IN Attending Dr: Claude Castellanos [...] <Electronically signed by Claude Castellanos MD> 12/07/211999 [facility] Work Phone: 1(334) 687-823808-30-2022 Consult note Author Kylah Verdugo [facility] December 07, 2021 4:57pm Note Date/Time December 07, 2021 4: 51pm [facility] [address] [place] [address] Cardiology Consult Note Signed Patient: Orestes Alvares MR#: [id number] : 1965 Acct:[id number] Age/Sex: 56 / F Adm Date: 2 Loc: Room: [address] [place] [address] Type: ADM IN Attending Dr: Claude Castellanos MD Copies to: DO Claude Rose MD Hassan M Ibrahim, MD, FACC~ Cardiology HPI History of Present Illness Consult Date: 12/07/21 Reason for Consult: Paroxysmal atrial fibrillation HPI: Ms. Alvares is a 56 year old female who is being seen at the request of the hospitalist because of paroxysmal atrial fibrillation. Patient presented to [facility] emergency department with syncopal event believed to [...] denies any complaints. While she was in [facility] emergency department her high-sensitivitytroponin was elevated at [...] History (Updated 12/07/21 @ 16:54 by Kylah Verdugo MD) Alcohol abuse Anemia COPD (chronic obstructive [...] Lymph # (Auto) 0.6 L (1.00-4.8) x10E3/uL [place] # (Auto) 0.6 (0.0-0.8) x10E3/uL Eos # [...] ml @ 100.4 mls/hr IV DAILY [facility] Rx#:[id number] Thiamine 200 mg In Sodium 102 / 102 Chloride 0.9% 100 ml 100 ml @ 204 mls/hr IV TID [facility] Rx#: [id number] Oral 150 / 350 200 / 350 [...] Acute kidney failure, unspecified Documented By: Kylah Verdugo MD, [facility] 2 1649 Signed By: <Electronically signed by LINCOLN HOSPITALBertha Verdugo> 12/07/21 1657 [facility] Work Phone: 1([phone]) 406-942508-30-2022 Progress note Author William Esposito [facility] December 07, 2021 10:38am Note Date/Time December 07, 2021 10 :34am [facility] [address] [place], [place] [id number] Nephrology Progress Note Signed Patient: Orestes Alvares MR#: [id number] : 1965 Acct:[id number] Age/Sex: 56 / F Adm Date: 2 Loc: 4P Room: 8T8350-6 Type: ADM IN Attending Dr: Claude Castellanos MD Copies to: ~ Date of Service: 12/07/2021 Subjective Subjective Narrative: Mrs. Alvares is a 56-year-old white female with history of COPD, smoker, alcohol abuse and hypothyroidism on levothyroxine who was transferred from [facility] on 12/04 for abnormal blood work [...] g of calcium before transfer to [facility]. Today's creatinine is slightly better 1.87 mg/dL [...] visible mass Skin: No rashes or bruises [employer] SALESPERSON: Awake,Alert, following simple command Musculoskeletal: No joint [...] Tablet) 500 mg PO BID.WITH.BFAST.LUNCH [facility] Stop: 12/05/22 07:59 Last Admin: 12/07/21 08:12 [...] @ 204 mls/hr IV TID [facility] Stop: 12/04/22 21:59 Last Infusion: 12/07/21 09:17 Dose: Infused Levofloxacin (Levaquin) 750 mg in 150 mls @ 100 mls/hr IV Q48H [facility] Last Admin: 12/07/21 09:31 Dose: 100 mls/hr Sodium Bicarbonate 150 meq/ (Dextrose) 1,150 mls @ 100 mls/hr IV .[id number] [facility] Stop: 12/06/22 19:29 Last Admin: 12/06/21 20:18 Dose: 100 mls/hr Levothyroxine Sodium (Levothyroxine 50 Mcg Tablet) 50 mcg PO DAILY.0630 [facility] Stop: 12/05/22 06:29 Last Admin: 12/07/21 05:42 Dose: 50 mcg Metoprolol Succinate (Metoprolol Succinate 100 Mg Tab.Er.24h) 100 mg PO DAILY [facility] Stop: 12/04/22 17:43 Last Admin: 12/07/21 08:12 Dose: 100 mg Metoprolol Tartrate (Metoprolol Tartrate 5 Mg/5 Ml Vial) 5 mg IV-PUSH Q4H PRN PRN Reason: tachycardia Stop: 12/06/22 19:17 Nicotine (Nicotine Patch 21 Mg/24hr 1 Each Patch.Td24) 1 each TRANSDERML DAILY [facility] Stop: 12/06/22 08:59 Last Admin: 12/07/21 08:12 Dose: 1 each Omeprazole (Omeprazole 20 Mg Capsule.Dr) 20 mg PO DAILY [facility] Stop: 12/05/22 08:59 Last Admin: 12/07/21 08:12 [...] Rossi Salinas M.D.12/06/2021 6:01 PM Dictation Location: [place] [address] Any impression(s) listed above is documentation that [...] signed by William Esposito MD> 12/07/21 1038 [facility] Work Phone: 1(524) 458-212108-29-2022 Progress note Author Hong Jewell [facility] December 06, 2021 7:32pm Note Date/Time December 06, 2021 7: 32pm [facility] [address] [place] [address] Hospitalist Progress Note Signed Patient: Orestes Alvares MR#: [id number] : 1965 Acct:[id number] Age/Sex: 56 / F Adm Date: 2 Loc: 4 Room: 9L3148-1 Type: ADM IN Attending Dr: Hong Jewell [...] that she reported were completed at the [facility]. Given her vasovagal syncope in the bathroom [...] Tablet PO 12/05/22 07:59 Not Given BID.WITH.BFAST.LUNCH [facility] Calcium Carbonate 1,000 mg 12/06/21 09:30 12/06/21 [...] 11:01 Dextrose IV 12/06/21 20:59 100 mls/hr .[id number] CINTIA Administration Sodium Chloride 1,000 mls @ [...] <Electronically signed by Hong Jewell DO> 12/06/211931 [facility] Work Phone: 1(181) 589-312208-29-2022 Consult note Author Rehan Russ [facility] December 06, 2021 5:46pm Note Date/Time December 06, 2021 5: 46pm [facility] [address] [place] [address] Gastroenterology Consult Note Signed Patient: Orestes Alvares MR#: [id number] : 1965 Acct:[id number] Age/Sex: 56 / F Adm Date: 2 Loc: Room: [address] [place] [address] Type: ADM IN Attending Dr: Hong Jewell [...] recorded. The patient was transferred to the [facility] and admitted the day before yesterday [...] EGD and colonoscopy several years ago in [place]. She was told that she had a gastric polyp and a colon polyp. She has not had this rechecked. Hemoglobin did drop to 7.7 but is now 8.7. Stool for occult blood is negative. Blood counts show macrocytic indices with normal ferritin. Review of systems includes hypertension, hypothyroidism, history of PA, history of SVT. cc:: CC: Hong Jewell [...] % (Auto) 62.7 Lymph % (Auto) 19.7 [place] % (Auto) 14.4 Eos % (Auto) 2.3 Baso % (Auto) 0.9 Neut # (Auto) 4.0 Lymph # (Auto) 1.3 [place] # (Auto) 0.9 H Eos # (Auto) [...] MPV Neut % (Auto) Lymph % (Auto) [place] % (Auto) Eos % (Auto) Baso % (Auto) Neut # (Auto) Lymph # (Auto) [place] # (Auto) Eos # (Auto) Baso # [...] <Electronically signed by MD Rehan Russ> 12/06/211745 [facility] Work Phone: 1(371) 690-814408-29-2022 Progress note Author William Esposito [facility] December 06, 2021 1:19pm Note Date/Time December 06, 2021 1: 19pm [facility] [address] [place] [address] Nephrology Progress Note Signed Patient: Orestes Alvares MR#: [id number] : 1965 Acct:[id number] Age/Sex: 56 / F Adm Date: 2 Loc: Room: [address] [place] [address] Type: ADM IN Attending Dr: Hong Jewell DO Copies to: ~ Date of Service: 12/06/2021 Subjective Subjective Narrative: Mrs. Alvares is a 56-year-old white female with history of COPD, smoker, alcohol abuse and hypothyroidism on levothyroxine who was transferred from [facility] on 12/04 for abnormal blood work [...] g of calcium before transfer to [facility]. Today's creatinine is slightly better 1.87 mg/dL [...] visible mass Skin: No rashes or bruises [employer] SAL[employer]ERSON: Awake,Alert, following simple command Musculoskeletal: No joint [...] Tablet) 500 mg PO BID.WITH.BFAST.LUNCH [facility] Stop: 12/05/22 07:59 Last Admin: 12/06/21 11:12 Dose: Not Given Calcium Carbonate (Calcium Carbonate 500 Mg Tablet) 1,000 mg PO BID [facility] Stop: 12/06/22 09:29 Last Admin: 12/06/21 11:13 Dose: Not Given Magnesium Sulfate (Magnesium Sulf 2gm-*Swfi*) 2 gm in 50 mls @ 25 mls/hr IV DAILY PRN PRN Reason: Magnesium Level < 1.5 Stop: 12/04/22 10:15 Folic Acid 1 mg/ Dextrose 50.2 mls @ 100.4 mls/hr IV DAILY [facility] Stop: 12/04/22 13:59 Last Admin: 12/06/21 11:00 Dose: 100 mls/hr Thiamine HCl 200 mg/ Sodium (Chloride) 102 mls @ 204 mls/hr IV TID [facility] Stop: 12/04/22 21:59 Last Admin: 12/05/21 22:05 Dose: 204 mls/hr Levofloxacin (Levaquin) 750 mg in 150 mls @ 100 mls/hr IV Q48H [facility] Last Admin: 12/05/21 09:17 Dose: 100 mls/hr Ferric Sodium Gluconate Complex 250 mg/ Sodium Chloride 270 mls @ 135 mls/hr IVQAM [facility] Stop: 12/09/21 08:59 Last Admin: 12/06/21 11:01 Dose: 135 mls/hr Sodium Bicarbonate 150 meq/ (Dextrose) 1,150 mls @ 100 mls/hr IV .[id number] [facility] Stop: 12/06/21 20:59 Last Admin: 12/06/21 11:01 Dose: 100 mls/hr Levothyroxine Sodium (Levothyroxine 50 Mcg Tablet) 50 mcg PO DAILY.0630 [facility] Stop: 12/05/22 06:29 Last Admin: 12/06/21 05:30 [...] <Electronically signed by William Esposito MD> 12/06/21 2192 [facility] Work Phone: [phone] 241-268008-28-2022 Progress note Author Hong Jewell [facility] December 05, 2021 5:23pm Note Date/Time December 05, 2021 5: 09pm [facility] [address] [place] [address] Hospitalist Progress Note Signed with Philippe Patient: Orestes Alvares MR#: [id number] : 1965 Acct:[id number] Age/Sex: 56 / F Adm Date: 2 Loc: Room: [address] [place] [address] Type: ADM IN Attending Dr: Hong Jewell [...] Lactated Ringer's IV 12/04/22 14:14 75 mls/hr .[id number] CINTIA Administration Folic Acid 1 mg/ Dextrose [...] or symptoms. Documented By: Hong Jewell DO [id number] Signed By: <Electronically signed by Hong Jewell DO> 12/05/21 0038 [facility] Work Phone: [phone]) [phone] Consult note Author Nilesh Oakley [facility] December 05, 2021 2:55pm Note Date/Time December 05, 2021 2: 55pm [facility] [address] [place], [place] [id number] Nephrology Consult Note Signed Patient: Orestes Alvares MR#: [id number] : 1965 Acct:[id number] Age/Sex: 56 / F Adm Date: 2 Loc: Room: [address] [place] [address] Type: ADM IN Attending Dr: Hong Jewell [...] hypothyroidism on levothyroxine who was transferred from [facility] on 12/04 for abnormal blood work [...] g of calcium before transfer to [facility]. Today's creatinine is slightly better 1.87 mg/dL [...] Tablet) 500 mg PO BID.WITH.BFAST.LUNCH [facility] Stop: 12/05/22 07:59 Last Admin: 12/05/21 11:55 Dose: 500 mg Magnesium Sulfate (Magnesium Sulf 2gm-*Swfi*) 2 gm in 50 mls @ 25 mls/hr IV DAILY PRN PRN Reason: Magnesium Level < 1.5 Stop: 12/04/22 10:15 Potassium Chloride 20 meq/ (Lactated Ringer's) 1,010 mls @ 75 mls/hr IV .[id number] [facility] Stop: 12/04/22 14:14 Last Admin: 12/05/21 01:34 Dose: 75 mls/hr Folic Acid 1 mg/ Dextrose 50.2 mls @ 100.4 mls/hr IV DAILY [facility] Stop: 12/04/22 13:59 Last Admin: 12/05/21 09:17 Dose: 100 mls/hr Thiamine HCl 200 mg/ Sodium (Chloride) 102 mls @ 204 mls/hr IV TID [facility] Stop: 12/04/22 21:59 Last Admin: 12/05/21 09:17 Dose: 204 mls/hr Levofloxacin (Levaquin) 750 mg in 150 mls @ 100 mls/hr IV Q48H [facility] Last Admin: 12/05/21 09:17 Dose: 100 mls/hr Levothyroxine Sodium (Levothyroxine 50 Mcg Tablet) 50 mcg PO DAILY.0630 [facility] Stop: 12/05/22 06:29 Last Admin: 12/05/21 06:55 Dose: Not Given Metoprolol Succinate (Metoprolol Succinate 100 Mg Tab.Er.24h) 100 mg PO DAILY [facility] Stop: 12/04/22 17:43 Last Admin: 12/05/21 09:17 [...] Cloudy A Urine pH 5.5 Ur Specific [place] 1.013 Urine Protein 30 H Urine Glucose [...] <Electronically signed by MD Nilesh Oakley> 12/05/21 1450 [facility] Work Phone: [phone]) 873-849808-27-2022 History and physical note Author Hong Jewell [facility] December 04, 2021 9:07pm Note Date/Time December 04, 2021 9: 07pm [facility] [address] [place] [address] Hospitalist H&P Signed Patient: Orestes Alvares MR#: [id number] : 1965 Acct:[id number] Age/Sex: 56 / F Adm Date: 2 Loc: Room: [address] [place] [address] Type: ADM IN Attending Dr: Hong Jewell DO Copies to: DO Hong Rose, ~ HPI DATE OF EXAMINATION: 12/04/21 CHIEF COMPLAINT: weakness, passing out, lightheadedness. HISTORY OF PRESENT ILLNESS: This is a 56-year-old woman who presented to the [facility] emergency room yesterday evening with complaints of [...] supposed to come get established with a quill skinner in [place]. She also was supposed to see a residential finish carpenter because she has probably rheumatoid arthritis and she has had a rash on her back for many decades. She has a fullness in the supraclavicular regions on both right and the left side. She says that the [facility] told her that these were [...] the age of 17. I gave her [id number] history. In terms of alcohol use she [...] % (Auto) 13.0 % (.) 12/04/21 11:47 [place] % (Auto) 13.9 % (.) 12/04/21 11:47 Eos % (Auto) 1.2 % (.) 12/04/21 11:47 Baso % (Auto) 0.4 % (.) 12/04/21 11:47 Neut # (Auto) 4.5 x10E3/uL (1.8-7.7) 12/04/21 11:47 Lymph # (Auto) 0.8 x10E3/uL (1.00-4.8) L 12/04/21 11:47 [place] # (Auto) 0.9 x10E3/uL (0.0-0.8) H 12/04/21 [...] <Electronically signed by Hong Jewell DO> 12/04/212106 [facility] Work Phone: Evaluation note* Diagnosis Onset [...] acute Urethral stenosis acute Vasovagal syncope acute [facility] Work Phone: Evaluation noteNo assessment information available [facility] Work Phone: evaluation note* Diagnosis Onset Date Resolution Status GERD (gastroesophageal reflux disease) acute Hypertension acute Hypomagnesemia acute Hypothyroid acute Lupus acute Paroxysmal atrial fibrillation with RVR acute Rheumatoid arthritis acute Stress-induced cardiomyopathy acute Type 2 myocardial infarction acute [facility] Work Phone: Evaluation note* Diagnosis Onset [...] cardiomyopathy acute Type 2 myocardial infarction acute [facility] Work Phone: Evaluation note* Diagnosis Anxiety about treatment- [facility] Anxiety about treatment- [facility] Diagnosis Anxiety disorder, unspecified type- Primary [facility] Diagnosis Pain- Primary Generalized pain [...] History SEE ABOVE Hospitalization History DEHYDRATION 12/2021 [facility] Other Hospital Discharge instructions Additional Instructions Dietary recommendations: - Magic cup (or equivalent) [facility] Work Phone: Hospital Discharge instructions Additional Instructions Follow-up with your primary care doctor Return to ED if develop worsening symptoms or concerns [facility] Work Phone: Hospital Discharge instructionsAmbulatory Orders* Referral to Cardiology Location: None Selected * Referral to Rheumatology Location: None Selected [facility] Work Phone: Hospital Discharge instructionsAmbulatory Orders* Referral to Cardiology Location: None Selected [facility] Work Phone: InstructionsNot on filedocumented in this encounter [facility] SystemInstructionsNot on filedocumented in this encounter [facility] Summary Purpose Family History No Family [...] and content) DATE CREATED AUTHOR 09/29/2017 [facility] DATE CREATED AUTHOR AUTHOR'S ORGANIZ ATION 01/07/2022 [facility] DATE CREATED AUTHOR AUTHOR'S ORGANIZ ATION 06/21/2024 [facility] DATE CREATED AUTHOR AUTHOR'S ORGANIZ ATION 09/11/2024 [facility] DATE CREATED AUTHOR AUTHOR'S ORGANIZ ATION 09/18/2024 [facility] DATE CREATED AUTHOR AUTHOR'S ORGANIZ ATION 10/23/[address] [facility] DATE CREATED AUTHOR AUTHOR'S ORGANIZ ATION 11/02/2024 [facility] DATE CREATED AUTHOR AUTHOR'S ORGANIZ ATION 12/27/2024 [facility] Care Teams (unrecognized sec tion and content) Team Status: Inactive Member Role Status Dates Segundo Rawls DO Primary Care Provider Active Hong Jewell DO Admit Provider, Attending Pr ovider Active Rehan Russ MD Other Provider Active Nilesh Oakley MD Other Provider Active Shawnee Persaud RN Other Provider Active Gillian Romano DO Other Provider Active Kylah Verdugo MD Other Provider Active Sher Frazier MD [...] Member Role Status Dates Katie Velasquez APRN BDC MANAGER-C Primary Care Provider Active Team Status: Inactive Member Role Status Dates Katie Velasquez APRN BDC MANAGER-C Primary Care Provider, Attending Provider Active Start: September 28, 2023 End: September 28, 2023 Team Status: Inactive Member Role Status Dates Katie Velasquez APRN BDC MANAGER-C Primary Care Provider, Attending Provider Active Start: December 27, 2023 End: December 27, 2023 Team Status: Inactive Member Role Status Dates Katie Velasquez APRN BDC MANAGER-C Primary Care Provider, Attending Provider Active Start: February 19, 2024 End: February 19, 2024 Team Status: Active Member Role Status Dates PHYSICIAN NO FAMILY Primary Care Provider Active Team Status: Active Member Role Status Dates Katie Velasquez APRN BDC MANAGER-C Primary Care Provider Active Start: April End: April 28, 2024 Owne Zamorano DO Attending Provider Active Sta rt: April 22, 2024 End: April 28, 2024 Fco Saavedra MD Referring Provider Active Sta rt: April 22, 2024 End: April 28, 2024 Team Status: Inactive Member Role Status Dates Katie Velasquez APRN BDC MANAGER-C Primary Care Provider Active Start: June 12, 2024 End: June 12, 2024 Sheryl Santamaria DO Attending Provider Active Sta rt: June 12, 2024 End: June 12, 2024 Team Status: Active Member Role Status Dates Katie Velasquez APRN BDC MANAGER-C Primary Care Provider, Attending Provider Active Start: June 12, 2024 Team Status: Active Member Role Status Dates PHYSICIAN NO FAMILY Primary Care Provider Active Start: June 13, 2024 Fco Saavedra MD Attending Provider Active Sta rt: June 13, 2024 Pheresis Specialist Relationship Specialty Start Date End Date Katie Velasquez NP [address] [place] [address] PCP - General Family Medicine 01/16/24 Pheresis Specialist Relationship Specialty Start Date End Date Katie Velasquez NP [address] [facility] [place] [address] PCP - General Family Medicine 01/16/24 Pheresis Specialist Relationship Specialty Start Date End Date Katie Velasquez NP [address] [facility] [place] [address] PCP - General Family Medicine 01/16/24 Pheresis Specialist Relationship Specialty Start Date End Date Katie Velasquez NP [address] [facility] [place] [address] PCP - General Family Medicine 01/16/24 Goals [...] BE BASED ON THE PRIMARY CLINICAL RECORDS. [employer] [facility]. provides no warranty or guarantee of the accuracy or completeness of information in this document.
--- NOTE | 2025-01-13 16:44 | ED.GENADUL1 ---
HPI HPI - General Adult General Chief complaint: Weakness Stated complaint: Weakness Time Seen by Provider: 01/13/25 16:13 Source: patient Mode of arrival: walk-in History of Present Illness HPI narrative: cc - cannot get home services Patient was brought in by her daughter because they are unable to get the primary care physician follow-up as well as dialysis treatment follow-up that was recommended following her recent hospitalization and subsequent stay at a longterm. The patient has a nurse specialist wound care and was also given paperwork and forms with phone numbers to call to set up her own transportation as well as dialysis and find a new primary care provider. Is not clear whether or not this patient has tried this. She said her primary care provider, Katie Coto, will no longer see her. Additionally, when she tried to call the [facility] line to get transportation to the dialysis center in [place], according to the patient, they would not transport her. The patient has paperwork with a variety of phone numbers including her nurse case briefer but it is after hours and none of these people are available after 4:30 PM. She has no complaints. She is not actually feeling any weakness. Related Data Home Medications ?Medication ?Instructions ?Recorded ?Confirmed levothyroxine 100 mcg tablet 100 mcg PO DAILY 02/13/23 01/13/25 allopurinol 100 mg tablet 100 mg PO DAILY 08/20/24 01/13/25 apixaban 2.5 mg tablet (Eliquis) 2.5 mg PO DAILY 08/20/24 01/13/25 carvedilol 12.5 mg tablet 12.5 mg PO BID 08/20/24 01/13/25 cetirizine 5 mg tablet 5 mg PO DAILY PRN anxiety 08/20/24 01/13/25 cholecalciferol 75992 08/20/24 folic acid 1 mg tablet 1 mg PO DAILY 08/20/24 01/13/25 midodrine 10 mg tablet mg 08/20/24 phenol 1.5 %-glycerin 33 % mucosal 1 spray mucous membrane Q2H 08/20/24 08/20/24 spray (Chloraseptic Max Sore Throat) escitalopram oxalate 10 mg tablet 10 mg PO QAM 01/13/25 01/13/25 sevelamer HCl 800 mg tablet 800 mg PO TID 01/13/25 01/13/25 tizanidine 2 mg tablet 2 mg PO BID PRN muscle spasticity 01/13/25 01/13/25 trazodone 50 mg tablet 25 mg PO QPM 01/13/25 01/13/25 Previous Rx's ?Medication ?Instructions ?Recorded walker #1 ea 02/17/23 pantoprazole 40 mg tablet,delayed 40 mg PO DAILY #30 tabs 04/28/24 release (Protonix) Allergies Allergy/AdvReac Type Severity Reaction Status Date / Time cephalexin (From Keflex) Allergy swelling Verified 09/16/24 21:22 prednisone Allergy swelling Verified 09/16/24 21:22 Opioid HPI Opioid Management Most Recent Opioid Data: Last Pain Scale 5 06/12/24, 17:58 Last Pain Intensity 6 04/27/24, 10:24 Last ORT Total Score 4 06/13/24, 10:21 Last ORT Risk Category Moderate Risk 06/13/24, 10:21 Ur Phencyclidine Scrn, (NEGATIVE) Negative 02/13/23, 05:25 PFSH PFSH Medical History Hypoxia ?R09.02 - Hypoxemia (ICD-10) Acute renal failure superimposed on chronic kidney disease ?N17.9 - Acute kidney failure, unspecified (ICD-10) ?N18.9 - Chronic kidney disease, unspecified (ICD-10) Hypothermia ?T68.XXXA - Hypothermia, initial encounter (ICD-10) CHF exacerbation ?I50.9 - Heart failure, unspecified (ICD-10) Paroxysmal atrial fibrillation ?I48.0 - Paroxysmal atrial fibrillation (ICD-10) Chronic kidney disease, stage 4 (severe) ?N18.4 - Chronic kidney disease, stage 4 (severe) (ICD-10) Acute on chronic heart failure with preserved ejection fraction (HFpEF) ?I50.33 - Acute on chronic diastolic (congestive) heart failure (ICD-10) Ulcer of right heel ?L97.419 - Non-pressure chronic ulcer of right heel and midfoot with unspecified severity (ICD-10) Hepatorenal syndrome ?K76.7 - Hepatorenal syndrome (ICD-10) Pulmonary hypertension ?I27.20 - Pulmonary hypertension, unspecified (ICD-10) Valvular heart disease ?I38 - Endocarditis, valve unspecified (ICD-10) Fluid overload ?E87.70 - Fluid overload, unspecified (ICD-10) Hypothyroidism ?E03.9 - Hypothyroidism, unspecified (ICD-10) Hypomagnesemia ?E83.42 - Hypomagnesemia (ICD-10) Hypoalbuminemia due to protein-calorie malnutrition ?E88.09 - Other disorders of plasma-protein metabolism, not elsewhere classified (ICD-10) ?E46 - Unspecified protein-calorie malnutrition (ICD-10) Hypertension ?I10 - Essential (primary) hypertension (ICD-10) Atrial fibrillation ?I48.91 - Unspecified atrial fibrillation (ICD-10) Chronic renal disease ?N18.9 - Chronic kidney disease, unspecified (ICD-10) Hypokalemia ?E87.6 - Hypokalemia (ICD-10) Hypocalcemia ?E83.51 - Hypocalcemia (ICD-10) Accidental fall ?W19.XXXA - Unspecified fall, initial encounter (ICD-10) Fracture of nasal bone ?S02.2XXA - Fracture of nasal bones, initial encounter for closed fracture (ICD-10) Hyponatremia ?E87.1 - Hypo-osmolality and hyponatremia (ICD-10) Hyperammonemia ?E72.20 - Disorder of urea cycle metabolism, unspecified (ICD-10) Hepatic encephalopathy ?K76.82 - Hepatic encephalopathy (ICD-10) Tobacco abuse ?Z72.0 - Tobacco use (ICD-10) Frequent falls ?R29.6 - Repeated falls (ICD-10) Lactic acidosis ?E87.20 - Acidosis, unspecified (ICD-10) Acute on chronic heart failure ?I50.9 - Heart failure, unspecified (ICD-10) Congestive heart failure ?I50.9 - Heart failure, unspecified (ICD-10) GERD (gastroesophageal reflux disease) ?K21.9 - Gastro-esophageal reflux disease without esophagitis (ICD-10) Stomach ulcer ?K25.9 - Gastric ulcer, unspecified as acute or chronic, without hemorrhage or perforation (ICD-10) Sigmoid diverticulosis ?K57.30 - Diverticulosis of large intestine without perforation or abscess without bleeding (ICD-10) Caries involving multiple surfaces of tooth ?K02.9 - Dental caries, unspecified (ICD-10) Renal cyst, acquired, left ?N28.1 - Cyst of kidney, acquired (ICD-10) Anxiety and depression ?F41.9 - Anxiety disorder, unspecified (ICD-10) ?F32.A - Depression, unspecified (ICD-10) Atrial fibrillation ?I48.91 - Unspecified atrial fibrillation (ICD-10) Smoker ?F17.200 - Nicotine dependence, unspecified, uncomplicated (ICD-10) Kidney failure ?N19 - Unspecified kidney failure (ICD-10) Alcohol abuse ?F10.10 - Alcohol abuse, uncomplicated (ICD-10) Surgical History History of endometrial ablation ?Z98.890 - Other specified postprocedural states (ICD-10) H/O section ?Z98.891 - History of uterine scar from previous surgery (ICD-10) Status post breast biopsy ?Z98.890 - Other specified postprocedural states (ICD-10) History of lumpectomy of both breasts ?Z98.890 - Other specified postprocedural states (ICD-10) S/P ablation of atrial fibrillation ?Z98.890 - Other specified postprocedural states (ICD-10) ?Z86.79 - Personal history of other diseases of the circulatory system (ICD-10) Family History Father Family history of CHF (congestive heart failure) Family history of diabetes mellitus Family history of hypertension Family history of myocardial infarction Mother Family history of cancer Family history of diabetes mellitus Family history of hypertension Family history of myocardial infarction Brother Family history of hypertension Family history of myocardial infarction Other Family history of COPD (chronic obstructive pulmonary disease) Social History Within the past year, how often did you have a drink containing alcohol: 2-3 times a week Smoking status: Current every day smoker Non-prescribed substance use: denies use Previous occupational history: retired Highest level of school completed/degree received: some college, no degree Are you now , , , , never or living with a partner: In a typical week, how many times do you talk on the telephone with family, friends, or neighbors: 3 or more times per week How often do you get together with friends or relatives: 3 or more times per week Little interest or pleasure in doing things: not at all Feeling down, depressed, or hopeless: not at all Feel stressed/tense/nervous/anxious/difficulty sleeping: not at all Do you think of yourself as: straight/heterosexual Gender Identity: female Exam Narrative Exam Narrative: Nurses notes and vital signs reviewed and patient is not hypoxic. afebrile General: Well-appearing and in no apparent distress. Skin: Warm, dry, no pallor noted. Head: Normocephalic, atraumatic. Neck: Supple, non-tender. Eye: Pupils are equal, round and EOMI. No scleral icterus. Ears, Nose, Mouth, and Throat: TM are clear, no posterior oropharynx erythema or nasal mucosal hypertrophy, uvula is mid-line Oral mucosa is moist Cardiovascular: Regular Rate and Rhythm without murmur, gallop or rub. Respiratory: No accessory muscle use or respiratory distress. Lungs are clear to auscultation, no wheezing, rales or rhonchi Musculoskeletal: normal ROM, no calf or popliteal tenderness, no lower extremity edema/swelling GI: Abdomen is soft, non-distended. Normal bowel sounds. No tenderness to palpation. No rebound, guarding, or rigidity noted. Neurological: A&O x4. No cranial nerve dysfunction observed. No truncal ataxia. Moves all extremities. Sensation intact. Psychiatric: Cooperative and interactive. Normal mood and affect. Constitutional Vital Signs, click to edit/add: Last Vital Signs Temp 98.4 F 01/13/25 16:16 Pulse 78 01/13/25 16:16 Resp 18 01/13/25 16:16 BP 142/90 H 01/13/25 16:16 Pulse Ox 100 01/13/25 16:16 O2 Del Method Room Air 01/13/25 16:16 Course Vital Signs Vital signs: Vital Signs Temperature 98.4 F 01/13/25 16:16 Pulse Rate 78 01/13/25 16:16 Respiratory Rate 18 01/13/25 16:16 Blood Pressure 142/90 H 01/13/25 16:16 Pulse Oximetry 100 01/13/25 16:16 Oxygen Delivery Method Room Air 01/13/25 16:16 Temperature 98.4 F 01/13/25 16:16 Pulse Rate 78 01/13/25 16:16 Respiratory Rate 18 01/13/25 16:16 Blood Pressure 142/90 H 01/13/25 16:16 Pulse Oximetry 100 01/13/25 16:16 Oxygen Delivery Method Room Air 01/13/25 16:16 Medical Decision Making MDM Narrative Medical decision making narrative: I do not find anything worrisome on examination. The daughter who accompanies the patient does not have much information to offer. I tried to call all the numbers on the patient's paperwork and because it is after 4:30 PM no one is available. I called Frandy, her social media manager, and discussed this patient's case. I made photocopies of is much of the relevant information as I could and made notes with additional names and phone numbers -Frandy said that she will review this paperwork tomorrow morning and assist the patient in getting the services that she needs. In the meantime, since the patient's exam is unremarkable and she has no complaints, she will be discharged home Discharge Plan Discharge Chief Complaint: Weakness Clinical Impression: Need for social services aide intervention Patient Disposition: Home, Self-Care Time of Disposition Decision: 17:00 Prescriptions / Home Meds: No Action pantoprazole [Protonix] 40 mg tablet,delayed release (DR/EC) 40 mg PO DAILY Qty: 30 11RF allopurinol 100 mg tablet 100 mg PO DAILY carvedilol 12.5 mg tablet 12.5 mg PO BID folic acid 1 mg tablet 1 mg PO DAILY midodrine 10 mg tablet Eliquis 2.5 mg tablet 2.5 mg PO DAILY cetirizine 5 mg tablet 5 mg PO DAILY PRN (Reason: anxiety) Chloraseptic Max Sore Throat 1.5-33 % spray,non-aerosol 1 spray mucous membrane Q2H Rx Instructions: leave on area for 15 seconds then spit out cholecalciferol 97730 levothyroxine 100 mcg tablet 100 mcg PO DAILY (DME) [facility] [place] .Route Qty: 1 0RF Rx Instructions: As directed escitalopram oxalate 10 mg tablet 10 mg PO QAM sevelamer HCl 800 mg tablet 800 mg PO TID tizanidine 2 mg tablet 2 mg PO BID PRN (Reason: muscle spasticity) trazodone 50 mg tablet 25 mg PO QPM Print Language: Guyanese Referrals: LASHA ARROYO [Physician, Internal Medicine] - 1 week ALISTAIR BURK [Physician, Family Practice] - 1 week
--- NOTE | 2025-01-14 09:28 | SWNOTE1 ---
AYUSH received a call from Dr. Petersen yesterday evening in regards to patient. Pt was at a nursing facility, [facility], and had been recently discharged. She had paperwork with her that was hand written with follow up appointments and phone numbers that she is supposed to be calling and trying to get scheduled. It says she was supposed to have Dialysis, but pt has not had it. Also has transportation numbers on it. Daughter was with pt, but did not have much information to provide. Pt does have some kind of home health coming in, Anat, which is likely [facility]. Dr. Petersen had no medical reason to admit patient, he will make copy of paperwork and SW to try and assist with getting appointments scheduled and follow up with patient. AYUSH gathered the paperwork from the ED. SW reviewed and it does list [facility] in [place] on Monday, , and Saturdays and pt was supposed to call [facility] and verify transport. It also listed [facility] and that pt needed to call [facility] in regards to transport. Fatimah Andres POWDER MIXER is listed as well. Anat, the home health nurse, is also listed with phone number. AYUSH reached out to Mary at [facility] to gather information on patient and if they set up patient with Dialysis, waiting to hear back. [facility] She voiced she is at a loss with pt. Pt is very non-compliant. Pt did not show up to [facility] to get her Dialysis and she has not had Dialysis for 3 weeks. Pt does not have a PCP at this time as she was a no show to her previous PCP. Anat has a call out to [facility] in [place] and there 2 POWDER MIXER's are reviewing her information and will contact pt if they can accept. Anat voiced she went to the ED to have the ED doctor order her Dialysis. AYUSH reviewed chart and it is not re-ordered from her stay here and AYUSH is unsure if an ED doctor would just re-order Dialysis for a patient if they have not been going. Anat did voice frustrations as pt did lose her seat at Dialysis due to being a no show and not having a physician to follow for her Dialysis. Anat voiced she is going to try to get her in to a [facility]. Anat did ask if we did any labs or changed her Brian Catheter? SW reviewed chart and no labs and no change of Brian Catheter. Anat did voice frustrations with transportation as well, pt was supposed to be calling [facility], but she never did. Pt also lives with 4 people and they all have vehicles, but nobody takes her to her appointments. SW asked what can be done to assist. Anat did voice frustrations with the non compliance. AYUSH did let Anat know that SW did reach out to [facility] and AYUSH will call Sanjay to see what needs to be done to get her back in for Dialysis. Anat is working on getting pt a PCP and she will be seeing pt tomorrow for a home visit. SW to call pt as well.
--- NOTE | 2025-01-14 12:20 | SWNOTE1 ---
AYUSH did receive a message back from Beth in admissions at [facility]. She spoke with her SW and this is the information provided by the SW at [facility]: Per Nimco our director of social services : This residents discharge was perfect. Resident had PCP set up with [facility] and Dialysis was set up. She also had transportation set up with [facility]. The resident decided not to follow through with everything set up. She had [facility] for home health and because she would not see her PCP she was discharged from home health. I have attached dc paperwork. Discharge paperwork did come through as an attachment. AYUSH requested she fax it.
--- NOTE | 2025-01-14 14:11 | SWNOTE1 ---
SW attempted to call [facility] in [place], but they closed at noon today. SW to attempt tomorrow.
--- NOTE | 2025-01-14 14:58 | SWNOTE1 ---
AYUSH did leave message for Garfield Harding, hopeful for call back tomorrow. SW to follow up.
--- NOTE | 2025-01-16 09:27 | SWNOTE1 ---
AYUSH did not receive a call back from Sanjay in [place]. AYUSH called pt's nurse from [facility], Anat. Anat did call and speak with a Conservation Engineer, Dr. Esposito. They advised that pt needed [facility] and get Emergent [facility]. Anat did call and speak with pt and advised her of this information. Per Anat, the patient did say she was going. SW to call patient.
--- NOTE | 2025-01-16 09:35 | SWNOTE1 ---
SW called pt's phone number listed, went straight to voicemail. SW called pt's significant other, Mateo who is listed as emergency contact. He did answer phone. AYUSH asked if Juanita was available and he requested SW call her phone. AYUSH advised that SW attempted to do this, but it went to voicemail. SW let significant other know that SW spoke to pt's home health nurse, Anat, and it is recommended pt go to [facility] ED and get emergent dialysis. He voiced understanding and he will tell Juanita when he sees her. SW did express the imortance of this as she has not had Dialysis in 3 weeks. He voiced understanding.
== END 2025-01-13 17:25 | disposition home or self-care (01) ==
PROVIDERS: Emergency Provider Emergency Medicine
DX: Z76.89 Persons encountering health services in other specified circumstances (principal); F17.200 Nicotine dependence, unspecified, uncomplicated
CPT/HCPCS: 99282

== ENCOUNTER 2025-02-13 20:52 | Inpatient (IN) | payer OTHER, MEDICAID, SELFPAY ==
--- OUTSIDE RECORDS SUMMARY | 2024-10-27 05:00 | XMS_ITS ---
Author Organization [facility] Address [address] [place] [id number] Care Team Providers Care Associate Professor Of Mathematics Name Role Phone RAFAEL AZAR Unavailable [phone] REASON FOR VISIT Chronic hypoxic hypercapnic respiratory failure, Pulmonary Hypertension Encounters Encounter Location Date Provider Diagnosis [address] [place], [place] [id number] 10/27/2024 RAFAEL NISSA Chronic hypoxic respiratory failure J96.11 ; Chronic respiratory failure with hypercapnia J96.12 ; Pulmonary hypertension, unspecified I27.20 and Congestive heart failure I50.9 Assessments Encounter Date Diagnosis (ICD Code) Assessment Notes Treatment Notes Treatment Clinical Notes Section Notes 10/27/2024 Chronic hypoxic respiratory fail ure (ICD-10 - J96.11) 5Chronic respiratory failure with hypercapnia (ICD-10 - J96.12) 10/27/2024Pulmonary hypertension, unspecified (ICD-10 - I27.20)10/27/2024 Congestive heart failure (ICD-10 - I50.9) Plan Of Treatment Next Appt Details Follow Up: 2 - 3 Days, Reaso n: Progress Notes * Nicko REDMANB:[birth year] (60 yo F)Acc No.[id number]:10/27/2024 Progress Notes Patient: Juanita SRINIVASAN :?Rafael Azar MDDOB:1965???Age:59 Y???Sex: FemaleDate:10/27/2024Phone:Address:[address] [place] [address], [phone] Subjective: * Chief Complaints: * 1 . Chronic hypoxic hypercapnic respiratory failure. 2. Pulmonary Hypertension. * HPI: ???Constitutional:?Continuing to see patient for pulmonary management.? Discussed residents pulmonary status with the respiratory therapist. Reviewed current assessment and orders. Will continue current orders as written at this time. Impression: Chronic hypoxic hypercapnic respiratory failure Pulmonary Hypertension? CHF Hx of tobacco abuse Hx of alcohol dependence? Afib? Plan: RA-2L, maintain saturations 92% or above DuoNeb Q6H PRN Refuses bipap or cpap therapy Here for PT, OT, ST, goal to go home Hemodialysis has been discontinued Will continue to monitor pulmonary status. * ROS: ???All Other Systems:?Review of Systems (ROS)?All others negative except those mentioned in HPI, See HPI for details.? * Medical History: Objective: * Vitals: * Examination: ???General Examination: ?GENERAL APPEARANCE:?in no acute distress, well developed, well nourished.?ORAL CAVITY:?mucosa moist.?THROAT:?normal.?NECK/THYROID:?neck supple, full range of motion.?SKIN:?warm and dry.?HEART:?no murmurs, regular rate and rhythm, S1, S2 normal. ?LUNGS:?clear to auscultation bilaterally.?EXTREMITIES:?no clubbing, cyanosis, or edema.?? ? Assessment: * Assessment: 1.?Chronic respiratory failure with hypercapnia - J96.12 (Primary)???2.?Chronic hypoxic respiratory failure - J96.11???3.?Pulmonary hypertension, unspecified - I27.20???4.?Congestive heart failure - I50.9??? Plan: * Treatment: * Follow Up: 2 - 3 Days * * Electronic signature of RAFAEL AZAR MD on 02/13/2025 at 09:35 PM ESTSign off status: Pending * Provider: Joanna Azar MD Date: 0 10/27/2024 Generated for Printing/Faxing/eTransmitting on:?02/13/2025 09:35 PM EST History and Physical Notes * HPI (History of Present Illness) CategorySub-CategoryDetailNotesCategory NotesConstitutional Continuing to see patient for pulmonary management. Discussed residents pulmonary status with the respiratory therapist. Reviewed current assessment and orders. Will continue current orders as written at this time. Impression: Chronic hypoxic hypercapnic respiratory failure Pulmonary Hypertension CHF Hx of tobacco abuse Hx of alcohol dependence Afib Plan: RA-2L, maintain saturations 92% or above DuoNeb Q6H PRN Refuses bipap or cpap therapy Here for PT, OT, ST, goal to go home Hemodialysis has been discontinued Will continue to monitor pulmonary status Examination CategorySub-CategoryDetailNotesCategory NotesGeneral ExaminationGENERAL APPEARANCE:in no acute distress, well developed, well nourishedTHROAT:normal NECK/THYROID:neck supple, full range of motionHEART:no murmurs, regular rate and rhythm, S1, S2 normalLUNGS:clear to auscultation bilaterallySKIN:warm and dry EXTREMITIES:no clubbing, cyanosis, or edemaORAL CAVITY:mucosa moist
--- OUTSIDE RECORDS SUMMARY | 2024-10-27 05:00 | XMS_ITS ---
Author Organization [facility] Address [address] [place] [phone] Care Team Providers Care Replenishment Buyer Name Role Phone RAFAEL AZAR Unavailable [phone] REASON FOR VISIT Chronic hypoxic hypercapnic respiratory failure, Pulmonary Hypertension Encounters Encounter Location Date Provider Diagnosis [address] [place], [place] [id number] 10/27/2024 RAFAEL NISSA Chronic hypoxic respiratory failure [...] * Nicko REDMANB:[birth year] (60 yo F)Acc No.[id number]:10/27/2024 Progress Notes Patient: Juanita SRINIVASAN :?Rafael Azar MDDOB:1965???Age:59 Y???Sex: FemaleDate:10/27/2024Phone:Address:[address] [place] [address], [phone] Subjective: * Chief Complaints: * 1 . [...] Electronic signature of RAFAEL AZAR MD on 02/14/2025 at 07:34 AM ESTSign off status: Pending * Provider: Joanna Azar MD Date: 0 10/27/2024 Generated for Printing/Faxing/eTransmitting on:?02/14/2025 07:34 AM EST History and Physical Notes * HPI [...]
[2025-02-13] VITALS (19 sets, daily range): BP systolic 118–155; BP diastolic 83–108; PULSE 72–163; TEMP 36.6; O2SAT 98–100; BMI 23.7
--- NOTE | 2025-02-13 21:14 | ECG_ITS ---
[facility] Test Date: 2025-02-13 Pat Name: ORESTES LOPEZ Department: Room: - Gender: Female Wire Spooler: : 1965 Requested By: [id number] Order Number: [id number] Reading MD: KAREN FRANCE M.D. Measurements Intervals [place] Rate: 80 P: -93577 CO: -07207 QRS: 77 QRSD: 82 T: 63 QT: 422 QTc: 459 Interpretive Statements [id number] Atrial fibrillation with aberrant conduction, or ventricular premature complexes 8304 Long QTc interval 9150 abnormal ECG Compared with the ECG of 09-16-2024 21:31, Atrial fibrillation has replaced sinus rhythm Electronically Signed On 02-14-2025 7:28:17 EST by KAREN FRANCE M.D.
--- NOTE | 2025-02-13 21:18 | ED_ITS ---
HPI - Altered Mental Status General Chief Complaint: Altered Mental Status Stated Complaint: ALTERED MENTAL STATUS Time Seen by Provider: 02/13/25 21:07 Source: patient Mode of arrival: ambulance History of Present Illness HPI narrative: This 60-year-old female with a history of anxiety, heart disease and kidney disease (allegedly) is brought to the emergency department by EMS for evaluation of altered mental status. According to the police the patient was at a neighbor's house and was confused. EMS was called. According to EMS she did not seem confused to them. The patient states to me that she is suffering from some anxiety. She states that she got out of a [facility] approximately 1 month ago that she was admitted to after having a heart attack and going into kidney failure. She was getting dialysis in the penitentiary and has a dialysis catheter in her right upper chest wall. She states that she thinks that her ex- boyfriend with whom she lives with is dating call girls from [place]. She thinks that the [place] girls are putting bugs/listening devices in her room. She states she asked the police to go to her room to look for these devices. She states that earlier today one of the [place] girls came up to the door on the motorcycle and there was another girl coming toward the back of the house. She thinks that they were planning to remove her air conditioner from her room so they could gain access to her room and kill her. She states she does not know who these people are if she has never met them. She states she went to the [facility] to call the police because she thinks that her phone is being bugged. She admits to drinking last night but has not had any drinks today although she states she which she had. She has had some nausea and vomiting. She denies any abdominal pain. Does not have any chest pain or shortness of breath. Related Data Home Medications ?Medication ?Instructions ?Recorded ?Confirmed levothyroxine 100 mcg tablet 100 mcg PO DAILY 02/13/23 02/13/25 allopurinol 100 mg tablet 100 mg PO DAILY 08/20/2410/02 apixaban 2.5 mg tablet (Eliquis) 2.5 mg PO DAILY 08/2002/13/25 carvedilol 12.5 mg tablet 12.5 mg PO BID 08/20/2410/02 cetirizine 5 mg tablet 5 mg PO DAILY PRN anxiety 01/13/25 cholecalciferol 76715 08/20/24 folic acid 1 mg tablet 1 mg PO DAILY 08/20/2402/13 midodrine 10 mg tablet mg 08/20/24 phenol 1.5 %-glycerin 33 % mucosal 1 spray mucous memb blaire Q2H 08/20/24 08/20/24 spray (Chloraseptic Max Sore Throat) escitalopram oxalate 10 mg tablet 10 mg PO QAM 5 02/13/25 sevelamer HCl 800 mg tablet 800 mg PO TID 01/13/2510/02 tizanidine 2 mg tablet 2 mg PO BID PRN muscle spast icity 01/13/25 02/13/25 trazodone 50 mg tablet 25 mg PO QPM 01/13/25 amlodipine 5 mg tablet 5 mg PO QAM 02/13/25 5 Previous Rx's ?Medication ?Instructions ?Recorded walker #1 ea 02/17/23 pantoprazole 40 mg tablet,delayed 40 mg PO DAILY #30 t abs 04/28/24 release (Protonix) Allergies Allergy/AdvReac Type Severity Reaction Status Date / Time cephalexin (From [place]) Allergy swelling Verified 09/16/24 21:22 prednisone Allergy swelling Verified 09/16/24 21:22 Review of Systems ROS Status of ROS 10 or more systems reviewed and unremark able except as noted in history and below PFSH PFSH Medical History Hypoxia ?R09.02 - Hypoxemia (ICD-10) Acute renal failure superimposed on chronic kidney disease ?N17.9 - Acute kidney failure, unspecified (ICD-10) ?N18.9 - Chronic kidney disease, unspecified (ICD-10) Hypothermia ?T68.XXXA - Hypothermia, initial encounter (ICD-10) CHF exacerbation ?I50.9 - Heart failure, unspecified (ICD-10) Paroxysmal atrial fibrillation ?I48.0 - Paroxysmal atrial fibrillation (ICD-10) Chronic kidney disease, stage 4 (severe) ?N18.4 - Chronic kidney disease, stage 4 (severe) (ICD-10) Acute on chronic heart failure with preserved ejection fraction (HFpEF) ?I50.33 - Acute on chronic diastolic (congestive) heart failure (ICD-10) Ulcer of right heel ?L97.419 - Non-pressure chronic ulcer of right heel and midfoot with unspecified severity (ICD-10) Hepatorenal syndrome ?K76.7 - Hepatorenal syndrome (ICD-10) Pulmonary hypertension ?I27.20 - Pulmonary hypertension, unspecified (ICD-10) Valvular heart disease ?I38 - Endocarditis, valve unspecified (ICD-10) Fluid overload ?E87.70 - Fluid overload, unspecified (ICD-10) Hypothyroidism ?E03.9 - Hypothyroidism, unspecified (ICD-10) Hypomagnesemia ?E83.42 - Hypomagnesemia (ICD-10) Hypoalbuminemia due to protein-calorie malnutrition ?E88.09 - Other disorders of plasma-protein metabolism, not elsewhere classified (ICD-10) ?E46 - Unspecified protein-calorie malnutrition (ICD-10) Hypertension ?I10 - Essential (primary) hypertension (ICD-10) Atrial fibrillation ?I48.91 - Unspecified atrial fibrillation (ICD-10) Chronic renal disease ?N18.9 - Chronic kidney disease, unspecified (ICD-10) Hypokalemia ?E87.6 - Hypokalemia (ICD-10) Hypocalcemia ?E83.51 - Hypocalcemia (ICD-10) Accidental fall ?W19.XXXA - Unspecified fall, initial encounter (ICD-10) Fracture of nasal bone ?S02.2XXA - Fracture of nasal bones, initial encounter for closed fracture (ICD-10) Hyponatremia ?E87.1 - Hypo-osmolality and hyponatremia (ICD-10) Hyperammonemia ?E72.20 - Disorder of urea cycle metabolism, unspecified (ICD-10) Hepatic encephalopathy ?K76.82 - Hepatic encephalopathy (ICD-10) Tobacco abuse ?Z72.0 - Tobacco use (ICD-10) Frequent falls ?R29.6 - Repeated falls (ICD-10) Lactic acidosis ?E87.20 - Acidosis, unspecified (ICD-10) Acute on chronic heart failure ?I50.9 - Heart failure, unspecified (ICD-10) Congestive heart failure ?I50.9 - Heart failure, unspecified (ICD-10) GERD (gastroesophageal reflux disease) ?K21.9 - Gastro-esophageal reflux disease without esophagitis (ICD-10) Stomach ulcer ?K25.9 - Gastric ulcer, unspecified as acute or chronic, without hemorrhage or perforation (ICD-10) Sigmoid diverticulosis ?K57.30 - Diverticulosis of large intestine without perforation or abscess without bleeding (ICD-10) Caries involving multiple surfaces of tooth ?K02.9 - Dental caries, unspecified (ICD-10) Renal cyst, acquired, left ?N28.1 - Cyst of kidney, acquired (ICD-10) Anxiety and depression ?F41.9 - Anxiety disorder, unspecified (ICD-10) ?F32.A - Depression, unspecified (ICD-10) Atrial fibrillation ?I48.91 - Unspecified atrial fibrillation (ICD-10) Smoker ?F17.200 - Nicotine dependence, unspecified, uncomplicated (ICD-10) Kidney failure ?N19 - Unspecified kidney failure (ICD-10) Alcohol abuse ?F10.10 - Alcohol abuse, uncomplicated (ICD-10) Surgical History History of endometrial ablation ?Z98.890 - Other specified postprocedural states (ICD-10) H/O section ?Z98.891 - History of uterine scar from previous surgery (ICD-10) Status post breast biopsy ?Z98.890 - Other specified postprocedural states (ICD-10) History of lumpectomy of both breasts ?Z98.890 - Other specified postprocedural states (ICD-10) S/P ablation of atrial fibrillation ?Z98.890 - Other specified postprocedural states (ICD-10) ?Z86.79 - Personal history of other diseases of the circulatory system (ICD- 10) Family History Father Family history of CHF (congestive heart failure) Family history of diabetes mellitus Family history of hypertension Family history of myocardial infarction Mother Family history of cancer Family history of diabetes mellitus Family history of hypertension Family history of myocardial infarction Brother Family history of hypertension Family history of myocardial infarction Other Family history of COPD (chronic obstructive pulmonary disease) Social History Within the past year, how often did you have a drink containing alcohol: 2-3 times a week Smoking status: Current every day smoker Non-prescribed substance use: denies use Previous occupational history: retired Highest level of school completed/degree received: some college, no degree Are you now , , , , never or living with a partner: In a typical week, how many times do you talk on the telephone with family, friends, or neighbors: 3 or more times per week How often do you get together with friends or relatives: 3 or more times per week Little interest or pleasure in doing things: not at all Feeling down, depressed, or hopeless: not at all Feel stressed/tense/nervous/anxious/difficulty sleeping: not at all Do you think of yourself as: straight/heterosexual Gender Identity: female Exam Narrative Exam Narrative: Vital signs and Nursing Notes reviewed: Patient is afebrile with normal pulse, blood pressure is mildly elevated at 145/91, she is not hypoxic with pulse ox of 100% on room air General: Awake, alert, oriented, no acute distress, lying comfortably on the stretcher-smiling and alert HEENT: Normocephalic atraumatic, mucous membranes are moist and pink, eyes are clear, conjunctiva is mildly pale, vision is grossly intact, posterior pharynx is normal in appearance. Neck: Supple, no meningeal signs, no anterior or posterior cervical lymphadenopathy Chest: Lungs are clear to auscultation with good air entry, there is no wheezing rhonchi or rales appreciated no accessory muscle use, patient is speaking in complete sentences-Camacho catheter in right upper chest wall-resting appears old CVS: Irregular rate and rhythm S1-S2 in the 80s-90s, no murmurs rubs or gallops, pulses are brisk and equal bilaterally ABD: Soft, nondistended, nontender, no rebound guarding or rigidity, bowel sounds are normal, no pulsatile masses appreciated Extremities: Moving all extremities, no lower extremity tenderness or swelling noted, negative Homans' sign, pulses are brisk and equal bilaterally Skin: Normal in appearance without rash,pallor, petechiae or purpura Neuro: No focal deficits Psych: Paranoid delusions, feels that boyfriend is dating [place] call girls who are bugging her room and trying to break into her room to kill her as well as placing a listening device in her phone, admits to anxiety, denies suicidal ideation Constitutional Vital Signs, click to edit/add: Last Vital Signs Temp 97.9 F 02/13/25 20:54 Pulse 72 02/13/25 23:10 Resp 17 02/13/25 23:20 BP 118/83 02/13/25 23:00 Pulse Ox 99 02/13/25 23:20 O2 Del Method Room Air 02/13/25 20:54 Course Vital Signs Vital signs: Vital Signs Temperature 97.9 F 02/13/25 20:54 Pulse Rate 80 02/13/25 20:54 Respiratory Rate 18 02/13/25 20:54 Blood Pressure 145/91 H 02/13/25 20:54 Pulse Oximetry 100 02/13/25 20:54 Oxygen Delivery Method Room Air 02/13/25 20:54 Temperature 97.9 F 02/13/25 20:54 Pulse Rate 72 02/13/25 23:10 Respiratory Rate 17 02/13/25 23:20 Blood Pressure 118/83 02/13/25 23:00 Pulse Oximetry 99 02/13/25 23:20 Oxygen Delivery Method Room Air 02/13/25 20:54 MDM - Altered Mental Status MDM Narrative Medical decision making narrative: This 60-year-old female with a history of chronic kidney disease, hypothyroidism, coronary artery disease with atrial fibrillation on Eliquis and anxiety is brought to the emergency department by EMS. The patient went to her neighbors house to call the police stating that she felt that her house was being bugged. She thinks that her boyfriend who she has been with for the past 23 years has [place] call girls that are trying to kill her. Please refer to my full H&P for the history of present illness. She has a Camacho catheter in her right chest wall and states that she is no longer receiving dialysis because she does not need it anymore . She states to me that she does have anxiety but denies that she is schizophrenic. She does have somewhat of a bizarre story. I asked her if she really believe that story and she said yes definitely. Sides this , some bizarre story she is awake and alert with stable vital signs. EKG done upon arrival is A-fib rate controlled at 80. Medical clearance workup was ordered. She has a normal white count and stable hemoglobin. Multiple met abolic abnormalities including potassium of 2.8. Magnesium of 0.3. Calcium of 6.1. Sodium is 129. Troponin is normal. BNP is 11,478 but decreased from prior. Ammonia is normal. BUN and creatinine are stable for this patient at 33 and 3.75. She does have a urinary tract infection with greater than 100 white blood cells per high-power field. CT scan of the brain was negative for acute finding s but does show chronic changes and 1 view chest x-ray was negative for acute findings. She was medicated with IV Cipro for the UTI, IV calcium for the hypocalcemia, oral and IV potassium for the hypokalemia and IV magnesium for the hypomagnesemia. She remains hemodynamically stable in the emergency department. I explained to her that we would likely need to admit her due to her metabolic abnormalities and UTI and she is in agreement with this and states good, I want to stay . She was not referred for MHP evaluation due to her metabolic abnormalities and UTI at this time. The case was discussed with the hospitalist and she is accepted for admission. She has not verbalized any suicidal or homicidal ideation, she has been calm and cooperative throughout her stay in the emergency department and is agreeable to being admitted. Differential Diagnosis Differential diagnosis: Likely altered mental status, delirium and dementia Medical Records Attestation: I reviewed the patient's medical records. Lab Data Attestation: I reviewed the patient's lab results. Labs: Lab Results 02/13/25 02/13/25 Range/Units 21:28 21:40 WBC 5.0 (4.0-11.0) 10^3/uL RBC 3.39 L (4.20-5.40) 10^6/uL Hgb 10.5 L (12.0-16.0) g/dL Hct 30.2 L (36.0-48.0) % MCV 89.1 (81.0-99.0) fL MCH 31.0 (26.7-34.0) pg MCHC 34.8 (29.9-35.2) g/dL RDW 13.5 (11.0-15.0) % Plt Count 225 (150-450) 10^3/uL MPV 9.2 L (9.5-13.5) fL Neut % (Auto) 56.7 (43.0-75.0) % Lymph % (Auto) 28.2 (20.5-60.0) % [place] % (Auto) 10.1 (1.7-12.0) % Eos % (Auto) 3.4 (0.9-7.0) % Baso % (Auto) 1.2 (0.2-2.0) % Neut # (Auto) 2.8 (1.4-6.5) 10^3/uL Lymph # (Auto) 1.4 (1.2-3.8) 10^3/uL [place] # (Auto) 0.5 (0.3-0.8) 10^3/uL Eos # (Auto) 0.2 (0.0-0.7) 10^3/uL Baso # (Auto) 0.1 (0.0-0.1) 10^3/uL Abs Immat Gran (auto) 0.02 (0.00-0.03) 10^3/uL Imm/Tot Granulo (auto) 0.4 (0.0-0.5) % Sodium 129 L (136-145) mmol/L Potassium 2.8 L* (3.5-5.1) mmol/L Chloride 97 L (98-107) mmol/L Carbon Dioxide 18.4 L (21.0-32.0) mmol/L Anion Gap 16.4 BUN 33.0 H (7.0-18.0) mg/dL Creatinine 3.75 H (0.55-1.02) mg/dL Est GFR ( Amer) 15 L (>=60 mL/min/1.73m^2) Est GFR (Non-Af Amer) 12 L (>=60 mL/min/1.73m^2) BUN/Creatinine Ratio 8.8 Glucose 87 (74-106) mg/dL Calcium 6.1 L (8.5-10.1) mg/dL Phosphorus 2.6 (2.6-4.7) mg/dL Magnesium 0.3 L* (1.8-2.4) mg/dL Total Bilirubin 0.6 (0.2-1.0) mg/dL AST 14 L (15-37) U/L ALT 11 L (14-59) U/L Alkaline Phosphatase 139 H (46-116) U/L Ammonia <10 L (11-32) umol/L Troponin I High Sens 13.1 (4.0-51.3) pg/mL NT-Pro-B Natriuret Pep 23953.0 H* (<=900.0) pg/mL Total Protein 7.1 (6.4-8.2) g/dL Albumin 3.6 (3.4-5.0) g/dL Globulin 3.5 g/dL Albumin/Globulin Ratio 1.0 TSH 13.345 H (0.358-3.740) uIU/mL Urine Color Lt. yellow (YELLOW) Urine Clarity Sl cloudy (CLEAR) Urine pH 6.0 (5.0-9.0) Ur Specific [place] 1.010 (1.005-1.025) Urine Protein >=300 A (NEG/TRACE) mg/dL Urine Glucose (UA) Negative (NEGATIVE) mg/dL Urine Ketones Negative (NEGATIVE) mg/dL Urine Occult Blood Small A (NEGATIVE) Urine Nitrite Negative (NEGATIVE) Urine Bilirubin Negative (NEGATIVE) Urine Urobilinogen 0.2 (0.2-1.0) EU/dL Ur Leukocyte Esterase Moderate A (NEGATIVE) Urine RBC 0-2 (0-2) #/HPF Urine WBC >100 A (NONE SEEN) #/HPF Ur Squamous Epith Cells Few A (NONE/RARE) #/LPF Urine Crystals None seen (None Seen) #/HPF Urine Bacteria Large A (NONE SEEN) #/HPF Urine Casts None seen (NONE SEEN) #/LPF Urine Mucus None seen (NONE SEEN) Ur [place] [place] Opi[place] Screen Negative (NEGATIVE) Ur Buprenorphine Scrn Negative (NEGATIVE) Ur Oxycodone Screen Negative (NEGATIVE) Urine Methadone Screen Negative (NEGATIVE) Ur Barbiturates Screen Negative (NEGATIVE) U Tricyclic Antidepress Negative (NEGATIVE) Ur Phencyclidine Scrn Negative (NEGATIVE) Ur Amphetamines Screen Negative (NEGATIVE) U Methamphetamines Scrn Negative (NEGATIVE) U Benzodiazepines Scrn Negative (NEGATIVE) Urine Cocaine Screen Negative (NEGATIVE) U Cannabinoids Screen Negative (NEGATIVE) Ethanol Quant 4 mg/dL Imaging Data CT scan - head: Radiologist's impression: ITS Impressions Head CT 02/13/25 21:31 IMPRESSION: No acute findings. Impression dictated by: Zhen Bunch M.D. 02/13/2025 10:19 PM Dictation Location: [place] [address] Electronically authenticated by: [id number] Y Date: 02/13/2025 22:19 Chest X-Ray 02/13/25 22:46 IMPRESSION: No acute process. Dialysis catheter unchanged Impression dictated by: Zhen Bunch M.D. 02/13/2025 11:16 PM Dictation Location: [facility] Electronically authenticated by: [id number] Y Date: 02/13/2025 23:16 Chest x-ray: Radiologist's impression: ITS Impressions Head CT 02/13/25 21:31 IMPRESSION: No acute findings. Impression dictated by: Zhen Bunch M.D. 02/13/2025 10:19 PM Dictation Location: [facility] Electronically authenticated by: [id number] Y Date: 02/13/2025 22:19 Chest X-Ray 02/13/25 22:46 IMPRESSION: No acute process. Dialysis catheter unchanged Impression dictated by: Zhen Bunch M.D. 02/13/2025 11:16 PM Dictation Location: [employer] Electronically authenticated by: [id number] Y Date: 02/13/2025 23:16 ECG Data Attestation: I personally reviewed and interpreted this ECG as follows: (A-fib at 80 bpm, normal axis, occasional PVCs, long QTc at 422 ms, no acute ST segment elevation or T wave inversion) Discharge Plan Discharge Chief Complaint: Altered Mental Status Clinical Impression: Hypomagnesemia, Hypocalcemia, Delirium due to general medical condition, Hyponatremia, Hypokalemia, UTI (urinary tract infection), Chronic kidney disease, Hypothyroidism Patient Disposition: Admitted as Observation Time of Disposition Decision: 00:02 Condition: Good
--- NOTE | 2025-02-13 21:31 | CT_ITS ---
The [address] [address] Patient Name: ORESTES LOPEZ MRN: [id number] date: 1965 Sex: F Assigned Patient Location: ED.MAIN Current Patient Location: ED.MAIN Accession/Order Number: [id number] Exam Date: 02/13/2025 21:53 Report Date: 02/13/2025 22:19 At the request of: AYANNA GIBSON MD Procedure: CT head/brain wo con Unenhanced head CT TECHNIQUE: Contiguous axial imaging of the head. The CT exam was performed using one or more the following dose reduction techniques: Automated exposure control, adjustment of the MA and/or Kv according to patient size, or use of the iterative reconstruction technique. COMPARISON: 02/13/2023 HISTORY: Altered mental status VENTRICLES: Within normal limits ATROPHY: Diffuse atrophy BRAIN PARENCHYMA: Decreased density of the white matter is most consistent with chronic small vessel disease. Remote lacunar infarction right basal ganglia. HEMORRHAGE: None HERNIATION: No mass effect or herniation INFARCTION: No recent vascular distribution infarction is seen. EXTRA-AXIAL FLUID COLLECTIONS None MIDBRAIN: Unremarkable RAVEN: Unremarkable MEDULLA: Unremarkable SINUSES: Unremarkable ORBITS: Grossly unremarkable MASTOIDS: Unremarkable BONY STRUCTURES Intact ADDITIONAL FINDINGS: CT/CT head/brain wo con IMPRESSION: No acute findings. Impression dictated by: Zhen Bunch M.D. 02/13/2025 10:19 PM Dictation Location: [place] [address] Electronically authenticated by: [id number] Y Date: 02/13/2025 22:19
--- OUTSIDE RECORDS SUMMARY | 2025-02-13 21:35 | XMS_ITS | Patient Health Record ---
Author Organization [facility] Address [address] [facility] [address] [place] [address] Care Team Providers Care Reporting Consultant Name Role Phone MELIDA AZARY Unavailable [phone] EKATERINA ROSALES Unavailable [phone] SANJANA DOUGHERTY Unavailable [phone] Reason For Referral No Information Problems Problem Type SNOMED Code ICD Code Onset Dates Problem Status W/U Status Risk Notes Problem Chronic respiratory failure (398 62066) Chronic respiratory failure with hypercapnia (J96.12) ActiveconfirmedProblemPulmonary hypertension (64947781)Pulmonary hypertension, unspecified (I27.20)OwfsqvgipsmpnyzPzhwmrkOivmu-lk-dvmkykk hypercapnic respiratory failure (disorder) (7229793922590)Acute on chronic respiratory failure with hypercapnia (J96.22)ActiveconfirmedProblemCongestive heart failure (31174551)Congestive heart failure (I50.9)ActiveconfirmedProblemChronic respiratory failure (21273653)Chronic hypoxic respiratory failure (J96.11)Active ovufsnkjbMtvqjtzIsffk-ut-xowwddb hypoxemic respiratory failure (disorder) (88099560031487756)Acute on chronic hypoxic respiratory failure (J96.21)Active confirmed Encounters Encounter Location Date Provider Diagnosis [address] [id number] 10/27/2024 RAFAEL AZAR Chronic hypoxic respiratory failure J96.11 ; Chronic respiratory failure with hypercapnia J96.12 ; Pulmonary hypertension, unspecified I27.20 and Congestive heart failure I50.[address] [id number] 07/04/2024 EKATERINA ROSALES Respiratory failur e, unspecified, unspecified whether with hypoxia or hypercapnia J96.90 and Pulmonary hypertension, unspecified I27.[address], [place] [id number] 07/06/2024 RAFAEL AZAR Respiratory failur e, unspecified, unspecified whether with hypoxia or hypercapnia J96.90 and Pulmonary hypertension, unspecified I27.[address] [id number] 07/09/2024 RAFAEL AZAR Respiratory failur e, unspecified, unspecified whether with hypoxia or hypercapnia J96.90 and Pulmonary hypertension, unspecified I27.[address] [id number] 07/11/2024 SANJANA DOUGHERTY Respiratory failur e, unspecified, unspecified whether with hypoxia or hypercapnia J96.90 and Pulmonary hypertension, unspecified I27.[address] [id number] 07/13/2024 RAFAEL AZAR Respiratory failur e, unspecified, unspecified whether with hypoxia or hypercapnia J96.90 and Pulmonary hypertension, unspecified I27.[address] [id number] 07/16/2024 EKATERINA ROSALES Respiratory failur e, unspecified, unspecified whether with hypoxia or hypercapnia J96.90 and Pulmonary hypertension, unspecified I27.[address] [id number] 07/18/2024 EKATERINA ROSALES Respiratory failur e, unspecified, unspecified whether with hypoxia or hypercapnia J96.90 and Pulmonary hypertension, unspecified I27.[address] [id number] 07/20/2024 RAFAEL AZAR Respiratory failur e, unspecified, unspecified whether with hypoxia or hypercapnia J96.90 and Pulmonary hypertension, unspecified I27.[address] [id number] 07/23/2024 EMMETTE ROSALES Acute on chronic hypoxic respiratory failure J96.21 ; Acute on chronic respiratory failure with hypercapnia J96.22 ; Pulmonary hypertension, unspecified I27.20 and Congestive heart failure I50.[address] [id number] 07/25/2024 KELCEE ROSALES Acute on chronic hypoxic respiratory failure J96.21 ; Acute on chronic respiratory failure with hypercapnia J96.22 ; Pulmonary hypertension, unspecified I27.20 and Congestive heart failure I50.9 [place] [address] [id number] 07/27/2024 RAFAEL AZAR Acute on chronic hypoxic respiratory failure J96.21 ; Acute on chronic respiratory failure with hypercapnia J96.22 ; Pulmonary hypertension, unspecified I27.20 and Congestive heart failure I50.9 [place] [address] [id number] 07/30/2024 KELCEE ROSALES Acute on chronic hypoxic respiratory failure J96.21 ; Acute on chronic respiratory failure with hypercapnia J96.22 ; Pulmonary hypertension, unspecified I27.20 and Congestive heart failure I50.9 [place] [address] [id number] 08/01/2024 KELVLADIMIRE ROSALES Acute on chronic hypoxic respiratory failure J96.21 ; Acute on chronic respiratory failure with hypercapnia J96.22 ; Pulmonary hypertension, unspecified I27.20 and Congestive heart failure I50.9 [place] [address] [id number] 08/03/2024 KELVLADIMIRE ROSALES Acute on chronic hypoxic respiratory failure J96.21 ; Acute on chronic respiratory failure with hypercapnia J96.22 ; Pulmonary hypertension, unspecified I27.20 and Congestive heart failure I50.9 [place] [address] [id number] 08/06/2024 KELCEE ROSALES Acute on chronic hypoxic respiratory failure J96.21 ; Acute on chronic respiratory failure with hypercapnia J96.22 ; Pulmonary hypertension, unspecified I27.20 and Congestive heart failure I50.9 [place] [address] [id number] 08/08/2024 KELCEE ROSALES Acute on chronic hypoxic respiratory failure J96.21 ; Acute on chronic respiratory failure with hypercapnia J96.22 ; Pulmonary hypertension, unspecified I27.20 and Congestive heart failure I50.9 [place] [address] [id number] 08/10/2024 KELVLADIMIRE ROSALES Acute on chronic hypoxic respiratory failure J96.21 ; Acute on chronic respiratory failure with hypercapnia J96.22 ; Pulmonary hypertension, unspecified I27.20 and Congestive heart failure I50.9 [place] [address] [id number] 08/17/2024 RAFAEL AZAR Acute on chronic hypoxic respiratory failure J96.21 ; Acute on chronic respiratory failure with hypercapnia J96.22 ; Pulmonary hypertension, unspecified I27.20 and Congestive heart failure I50.9 [place] [address] [id number] 08/24/2024 RAFAEL AZAR Acute on chronic hypoxic respiratory failure J96.21 ; Acute on chronic respiratory failure with hypercapnia J96.22 ; Pulmonary hypertension, unspecified I27.20 and Congestive heart failure I50.9 [place] [address] [id number] 09/02/2024 RAFAEL AZAR Acute on chronic hypoxic respiratory failure J96.21 ; Acute on chronic respiratory failure with hypercapnia J96.22 ; Pulmonary hypertension, unspecified I27.20 and Congestive heart failure I50.9 [place] [address] [id number] 09/05/2024 EKATERINA ROSALES Acute on chronic hypoxic respiratory failure J96.21 ; Acute on chronic respiratory failure with hypercapnia J96.22 ; Pulmonary hypertension, unspecified I27.20 and Congestive heart failure I50.9 [place] [address] [id number] 09/08/2024 RAFAEL AZAR Acute on chronic hypoxic respiratory failure J96.21 ; Acute on chronic respiratory failure with hypercapnia J96.22 ; Pulmonary hypertension, unspecified I27.20 and Congestive heart failure I50.9 [place] [address] [id number] 09/10/2024 EKATERINA ROSALES Chronic hypoxic respiratory failure J96.11 ; Chronic respiratory failure with hypercapnia J96.12 ; Pulmonary hypertension, unspecified I27.20 and Congestive heart failure I50.9 [place] [address] [id number] 09/15/2024 RAFAEL AZAR Chronic hypoxic respiratory failure J96.11 ; Chronic respiratory failure with hypercapnia J96.12 ; Pulmonary hypertension, unspecified I27.20 and Congestive heart failure I50.9 [place] [address] [id number] 09/29/2024 RAFAEL AZAR Chronic hypoxic respiratory failure J96.11 ; Chronic respiratory failure with hypercapnia J96.12 ; Pulmonary hypertension, unspecified I27.20 and Congestive heart failure I50.9 [place] [address] [id number] 10/05/2024 RAFAEL AZAR Chronic hypoxic respiratory failure J96.11 ; Chronic respiratory failure with hypercapnia J96.12 ; Pulmonary hypertension, unspecified I27.20 and Congestive heart failure I50.9 [place] [address] [id number] 10/18/2024 RAFAEL AZAR Chronic hypoxic respiratory failure J96.11 ; Chronic respiratory failure with hypercapnia J96.12 ; Pulmonary hypertension, unspecified I27.20 and Congestive heart failure I50.9 [place] [address] [id number] 11/10/2024 RAFAEL AZAR Chronic hypoxic respiratory failure J96.11 ; Chronic respiratory failure with hypercapnia J96.12 ; Pulmonary hypertension, unspecified I27.20 and Congestive heart failure I50.9 [place] [address] [id number] 11/17/2024 RAFAEL AZAR Chronic hypoxic respiratory failure J96.11 ; Chronic respiratory failure with hypercapnia J96.12 ; Pulmonary hypertension, unspecified I27.20 and Congestive heart failure I50.9 [place] [address] [id number] 11/24/2024 RAFAEL AZAR Chronic hypoxic respiratory failure J96.11 ; Chronic respiratory failure with hypercapnia J96.12 ; Pulmonary hypertension, unspecified I27.20 and Congestive heart failure I50.9 [place] [address] [id number] 12/01/2024 RAFAEL AZAR Chronic hypoxic respiratory failure J96.11 ; Chronic respiratory failure with hypercapnia J96.12 ; Pulmonary hypertension, unspecified I27.20 and Congestive heart failure I50.9 [place] [address] [id number] 12/14/2024 RAFAEL AZAR Chronic hypoxic respiratory failure J96.11 ; Chronic respiratory failure with hypercapnia J96.12 ; Pulmonary hypertension, unspecified I27.20 and Congestive heart failure I50.9 Assessments Encounter Date Diagnosis (ICD Code) Assessment Notes Treatment Notes Treatment Clinical Notes Section Notes 07/04/2024 Respiratory failure, unspecified, unspecified whether with hypoxia or hypercapnia (ICD-10 - J96.90) 07/04/2024Pulmonary hypertension, unspecified (ICD-10 - I27.20)07/06/2024 Respiratory failure, unspecified, unspecified whether with hypoxia or hypercapnia (ICD-10 - J96.90)07/11/2024Respiratory failure, unspecified, unspecified whether with hypoxia or hypercapnia (ICD-10 - J96.90)07/13/2024 Respiratory failure, unspecified, unspecified whether with hypoxia or hypercapnia (ICD-10 - J96.90)07/16/2024Respiratory failure, unspecified, unspecified whether with hypoxia or hypercapnia (ICD-10 - J96.90)07/18/2024 Respiratory failure, unspecified, unspecified whether with hypoxia or hypercapnia (ICD-10 - J96.90)07/20/2024Respiratory failure, unspecified, unspecified whether with hypoxia or hypercapnia (ICD-10 - J96.90)5Acute on chronic respiratory failure with hypercapnia (ICD-10 - J96.22)5Acute on chronic hypoxic respiratory failure (ICD-10 - J96.21)5Acute on chronic hypoxic respiratory failure (ICD-10 - J96.21)5Acute on chronic hypoxic respiratory failure (ICD-10 - J96.21)5Acute on chronic hypoxic respiratory failure (ICD-10 - J96.21)5Acute on chronic hypoxic respiratory failure (ICD-10 - J96.21)5Acute on chronic hypoxic respiratory failure (ICD-10 - J96.21)5Acute on chronic hypoxic respiratory failure (ICD-10 - J96.21)5Acute on chronic hypoxic respiratory failure (ICD-10 - J96.21)5Acute on chronic hypoxic respiratory failure (ICD-10 - J96.21)5Acute on chronic hypoxic respiratory failure (ICD-10 - J96.21)5Acute on chronic hypoxic respiratory failure (ICD-10 - J96.21)5Acute on chronic hypoxic respiratory failure (ICD-10 - J96.21)5Acute on chronic hypoxic respiratory failure (ICD-10 - J96.21)5Chronic hypoxic respiratory failure (ICD-10 - J96.11)5Chronic hypoxic respiratory failure (ICD-10 - J96.11)5Chronic hypoxic respiratory failure (ICD-10 - J96.11)10/18/2024 Chronic hypoxic respiratory failure (ICD-10 - J96.11)5Chronic hypoxic respiratory failure (ICD-10 - J96.11)5Chronic hypoxic respiratory failure (ICD-10 - J96.11)5Chronic hypoxic respiratory failure (ICD-10 - J96.11)5Chronic hypoxic respiratory failure (ICD-10 - J96.11)12/01/2024 Chronic hypoxic respiratory failure (ICD-10 - J96.11)5Chronic hypoxic respiratory failure (ICD-10 - J96.11)09/10/2024hronic respiratory failure with hypercapnia (ICD-10 - J96.12)09/10/2024hronic hypoxic respiratory failure (ICD- 10 - J96.11)5Acute on chronic hypoxic respiratory failure (ICD-10 - J96.21)07/09/2024Respiratory failure, unspecified, unspecified whether with hypoxia or hypercapnia (ICD-10 - J96.90)07/09/2024Pulmonary hypertension, unspecified (ICD-10 - I27.20)5Acute on chronic respiratory failure with hypercapnia (ICD-10 - J96.22)09/10/2024Pulmonary hypertension, unspecified (ICD- 10 - I27.20)12/14/2024hronic respiratory failure with hypercapnia (ICD-10 - J96.12)5Chronic respiratory failure with hypercapnia (ICD-10 - J96.12) 11/24/2024hronic respiratory failure with hypercapnia (ICD-10 - J96.12) 11/17/2024hronic respiratory failure with hypercapnia (ICD-10 - J96.12) 11/10/2024hronic respiratory failure with hypercapnia (ICD-10 - J96.12) 10/27/2024hronic respiratory failure with hypercapnia (ICD-10 - J96.12) 10/18/2024hronic respiratory failure with hypercapnia (ICD-10 - J96.12) 10/05/2024hronic respiratory failure with hypercapnia (ICD-10 - J96.12) 09/29/2024hronic respiratory failure with hypercapnia (ICD-10 - J96.12) 09/15/2024hronic respiratory failure with hypercapnia (ICD-10 - J96.12) 5Acute on chronic respiratory failure with hypercapnia (ICD-10 - J96.22)5Acute on chronic respiratory failure with hypercapnia (ICD-10 - J96.22)5Acute on chronic respiratory failure with hypercapnia (ICD-10 - J96.22)5Acute on chronic respiratory failure with hypercapnia (ICD-10 - J96.22)5Acute on chronic respiratory failure with hypercapnia (ICD-10 - J96.22)5Acute on chronic respiratory failure with hypercapnia (ICD-10 - J96.22)5Acute on chronic respiratory failure with hypercapnia (ICD-10 - J96.22)5Acute on chronic respiratory failure with hypercapnia (ICD-10 - J96.22)5Acute on chronic respiratory failure with hypercapnia (ICD-10 - J96.22)5Acute on chronic respiratory failure with hypercapnia (ICD-10 - J96.22)5Acute on chronic respiratory failure with hypercapnia (ICD-10 - J96.22)5Acute on chronic respiratory failure with hypercapnia (ICD-10 - J96.22)07/20/2024Pulmonary hypertension, unspecified (ICD-10 - I27.20)07/23/2024 Pulmonary hypertension, unspecified (ICD-10 - I27.20)07/18/2024Pulmonary hypertension, unspecified (ICD-10 - I27.20)07/16/2024Pulmonary hypertension, unspecified (ICD-10 - I27.20)07/13/2024Pulmonary hypertension, unspecified (ICD- 10 - I27.20)07/11/2024Pulmonary hypertension, unspecified (ICD-10 - I27.20) 07/06/2024Pulmonary hypertension, unspecified (ICD-10 - I27.20)07/23/2024 Congestive heart failure (ICD-10 - I50.9)07/25/2024Pulmonary hypertension, unspecified (ICD-10 - I27.20)07/27/2024Pulmonary hypertension, unspecified (ICD- 10 - I27.20)07/30/2024Pulmonary hypertension, unspecified (ICD-10 - I27.20) 08/03/2024Pulmonary hypertension, unspecified (ICD-10 - I27.20)08/06/2024 Pulmonary hypertension, unspecified (ICD-10 - I27.20)08/08/2024Pulmonary hypertension, unspecified (ICD-10 - I27.20)08/10/2024Pulmonary hypertension, unspecified (ICD-10 - I27.20)08/17/2024Pulmonary hypertension, unspecified (ICD- 10 - I27.20)08/24/2024Pulmonary hypertension, unspecified (ICD-10 - I27.20) 09/02/2024Pulmonary hypertension, unspecified (ICD-10 - I27.20)09/05/2024 Pulmonary hypertension, unspecified (ICD-10 - I27.20)09/08/2024Pulmonary hypertension, unspecified (ICD-10 - I27.20)09/15/2024Pulmonary hypertension, unspecified (ICD-10 - I27.20)09/29/2024Pulmonary hypertension, unspecified (ICD- 10 - I27.20)10/05/2024Pulmonary hypertension, unspecified (ICD-10 - I27.20) 10/18/2024Pulmonary hypertension, unspecified (ICD-10 - I27.20)10/27/2024 Pulmonary hypertension, unspecified (ICD-10 - I27.20)11/10/2024Pulmonary hypertension, unspecified (ICD-10 - I27.20)11/17/2024Pulmonary hypertension, unspecified (ICD-10 - I27.20)11/24/2024Pulmonary hypertension, unspecified (ICD- 10 - I27.20)12/01/2024Pulmonary hypertension, unspecified (ICD-10 - I27.20) 12/14/2024Pulmonary hypertension, unspecified (ICD-10 - I27.20)09/10/2024 Congestive heart failure (ICD-10 - I50.9)08/01/2024Pulmonary hypertension, unspecified (ICD-10 - I27.20)08/01/2024ongestive heart failure (ICD-10 - I50.9) 5Congestive heart failure (ICD-10 - I50.9)5Congestive heart failure (ICD-10 - I50.9)5Congestive heart failure (ICD-10 - I50.9) 5Congestive heart failure (ICD-10 - I50.9)5Congestive heart failure (ICD-10 - I50.9)5Congestive heart failure (ICD-10 - I50.9) 5Congestive heart failure (ICD-10 - I50.9)5Congestive heart failure (ICD-10 - I50.9)5Congestive heart failure (ICD-10 - I50.9) 5Congestive heart failure (ICD-10 - I50.9)5Congestive heart failure (ICD-10 - I50.9)5Congestive heart failure (ICD-10 - I50.9) 5Congestive heart failure (ICD-10 - I50.9)5Congestive heart failure (ICD-10 - I50.9)5Congestive heart failure (ICD-10 - I50.9) 5Congestive heart failure (ICD-10 - I50.9)5Congestive heart failure (ICD-10 - I50.9)5Congestive heart failure (ICD-10 - I50.9) 5Congestive heart failure (ICD-10 - I50.9)5Congestive heart failure (ICD-10 - I50.9)5Congestive heart failure (ICD-10 - I50.9) 5Congestive heart failure (ICD-10 - I50.9)07/25/2024OtherSeoscar in collaboration and discussed plan of care with Dr. Rafael Azar08/06/2024OtherSeoscar in collaboration and discussed plan of care with Dr. Rafael Azar07/23/2024Carroll Seen in collaboration and discussed plan of care with Dr. Rafael Azar08/03/2024 OtherSeen in collaboration and discussed plan of care with Dr. Rafael Azar 07/18/2024OtherSeoscar in collaboration and discussed plan of care with Dr. Rafael Azar09/10/2024Padmini in collaboration and discussed plan of care with Dr. Rafael Azar07/16/2024OtherSeoscar in collaboration and discussed plan of care with Dr. Rafael Azar09/05/2024OtherSeoscar in collaboration and discussed plan of care with Dr. Rafael Azar08/10/2024OtherSeoscar in collaboration and discussed plan of care with Dr. Rafael Azar08/01/2024OtherSeoscar in collaboration and discussed plan of care with Dr. Rafael Azar07/30/2024OtherSeoscar in collaboration and discussed plan of care with Dr. Rafael Azar08/08/2024OtherDave in collaboration and discussed plan of care with Dr. Rafael Azar Plan Of Treatment No Information Insurance Providers Payer Name Payer Address Payer Phone Subscriber Number Group Number Insured Name Patient Relationship to Insured Coverage Start Date Coverage End Date Medicaid of [place] [address] [place] [phone] [id number] Tao Redman - patient is the insured
--- OUTSIDE RECORDS SUMMARY | 2025-02-13 21:35 | XMS_ITS | Clinical Summary ---
Author Organization [facility] Address [address] [place] [address] Care Team Providers Care Irrigator Sprinkling System Name Role Phone House Sr., DO Segundo Patton Primary Care Provider + Social History Tobacco UseTypesPacks/DayYears UsedDateSmoking Tobacco: Never Assessed CommentsUnknownSex and Gender InformationValueDate RecordedSex Assigned at Not on fileLegal AhbWekool26/12/2014 2:24 PM ESTGender IdentityNot on fileSexual OrientationNot on file Plan of Treatment Health MaintenanceDue DateLast DoneCommentsAnxiety Zcxngzjbx35/23/1981Depression Uxjicikzy75/23/1981HIV Mmdlawjye42/23/1981Hepatitis C Mjewuhnbv93/23/1981 DTaP,Tdap,Td Vaccine (1 - Tdap)1982Cervical Cancer Kgxvgzazs83/23/1984 Mammogram Speabhych27/23/2003CT Putjwhphrxbi44/23/2008Cologuard (FIT-DNA) 01/31/20080923Cfogoxxrslu08/23/2008Colorectal Cancer Aepawpfry29/23/2008Diabetes Jivujcnra37/23/2008Fecal Occult Blood01/31/2008Lipid Tvtdilbfu73/23/2008 Ixcomeeehgnjk20/23/2008Pneumococcal Vaccine: 50+ (1 of 1 - PCV)2013 Shingrix Vaccine (1 of 2)2013Covid-19 Vaccine (1 - 2024- season) 2024Influenza Vaccine (#1)2024RSV Vaccine (1 - 1-dose 75+ series) 2038 Insurance Care Teams Team MemberRelationshipSpecialtyStart DateEnd [facility] Segundo Rawls Sr., PCP - GeneralFamily Medicine04/18/18
--- OUTSIDE RECORDS SUMMARY | 2025-02-13 21:35 | XMS_ITS | Clinical Summary ---
Author Organization [employer] [facility] Address [id number] [address] [place] [address] Care Team Providers Care Maintenance Fitter Name Role Phone Alana Miller APRN-MANAGER SPANISH Primary Care Provider Allergies No known active allergies Medications MedicationSigDispense QuantityRefillsLast FilledStart DateEnd DateStatus ELIQUIS 2.5 mg tablet Take 1 tablet (2.5 mg total) by mouth in the morning and 1 tablet (2.5 mg total) before bedtime.5Active levothyroxine (SYNTHROID, LEVOTHROID) 100 MCG tablet Take 1 tablet (100 mcg total) by mouth in the morning.Active pantoprazole (PROTONIX) 40 mg EC tablet Take 1 tablet (40 mg total) by mouth every morning before breakfast.05/24/2024 Active carvediloL (COREG) 12.5 mg tablet Indications:hypertensionTake 1 tablet (12.5 mg total) by mouth in the morning and 1 tablet (12.5 mg total) before bedtime. Indications: high blood pressure. 90 tablet 5Active darbepoetin anai-polysorbate (ARANESP) 60 mcg/0.3 mL syringe Indications:anemia due to renal failureInject 0.3 mL (60 mcg total) under the skin once a week Indications: anemia due to kidney failure. 0.3 mL 5Active sennosides-docusate sodium (SENOKOT-S) 8.6-50 mg Take 2 tablets by mouth as needed for constipation. 30 tablet 5Active ipratropium-albuteroL (DUONEB) 0.5 mg-3 mg(2.5 mg base)/3 mL nebulizer Indications:Acute respiratory failure with hypoxia (CMS-HCC)Inhale 3 mL by nebulization every 4 (four) hours as needed for wheezing. 30 mL 5Active midodrine (PROAMATINE) 10 mg tablet Take 1 tablet (10 mg total) by mouth as needed (give pre/mid during dialysis as needed for SBP <100).5Active Active Problems ProblemNoted DateDiagnosed DateAcute hypoxic respiratory jebsety03/07/2025Acute respiratory hrywqmx4906/14/2024Mucus plug in respiratory tract06/13/2024 Social History Tobacco UseTypesPacks/DayYears UsedDateSmoking Tobacco: Never AssessedChildcare AnswerDate RgngumvsWhhoemncvJtradfm89/12/2019EmploymentAnswerDate Recorded TyslewgvnvMyogwaa23/12/2019CommentsNoSex and Gender InformationValueDate RecordedSex Assigned at BirthNot on fileLegal UeaTdtqrr08/06/2015 11:29 AM EDT Gender IdentityNot on fileSexual OrientationNot on file Last Filed Vital Signs Vital SignReadingTime TakenCommentsBlood Qojrcbrf162/72007/03/2024 5:00 PM EDT Jxneu131607/03/2024 5:00 PM YZIIosstbpalfk62.8 ??C (98.3 ??F)07/03/2024 4:17 PM EDTRespiratory Abhv878207/03/2024 5:00 PM EDTOxygen Rlhsgsrczh24%07/03/2024 5:00 PM EDTInhaled Oxygen Concentration--Xerlyz80.4 kg (153 lb)07/03/2024 4:17 PM EDT Jkmnsn072 cm (5' 5.75 )06/24/2024 8:40 AM EDTBody Mass Index24.8806/24/2024 8:40 AM EDT Plan of Treatment Health MaintenanceDue DateLast DoneCommentsDepression Yrrbbtdls88/23/1975Tobacco Fbslvrmst17/23/1975DTaP,Tdap and Td Vaccines (1 - Tdap)1982Pap Smear 01/31/1984Zoster (Shingles) Vaccine (1 of 2)2013Influenza Vaccine 09/01/2025Adult BMI Ybijiyvrc40RSV ( or age 60+ yrs) (1 - 1-dose 75+ series)2038 Goals GoalPatient Goal TypeAssociated ProblemsRecent ProgressPatient-Stated?Author <enter goal here> Mattie Ann RN Note: Evaluation of progress towards goal: Progress towards discharge Medical Devices Not on file Insurance Advance Directives * DNRCCA DNI (Latest Code Status on File) Date ActivatedDate InactivatedComments06/25/2024 2:15 PM07/03/2024 7:47 PM * DNR Comfort Care Arrest (DNR-CCA) [place] Date ActivatedDate InactivatedComments06/25/2024 2:07 PM06/25/2024 2:15 PM * Full Code Date ActivatedDate InactivatedComments06/13/2024 8:54 PM06/25/2024 2:07 PM Care Teams Team MemberRelationshipSpecialtyStart DateEnd Date Alana Miller, TEACHER VOCATIONAL TRAINING-MANAGER SPANISH [address] [place] [address] PCP - GeneralNurse Practitioner09/12/24
--- OUTSIDE RECORDS SUMMARY | 2025-02-13 21:35 | XMS_ITS ---
Author Organization [employer] tem Address [id number] [address] [place] [address] Care Team Providers Care Highway Truck Driver Name Role Phone Alana Miller APRN-MILLWRIGHT HELPER Primary Care Provider Dialysis Access Sites TypeStatusLocationPlacement DateRemoval DateHemodialysis Catheter Double 07/03/24 Cuffed Right Internal JugularActiveRight Neck (side) - Anterior 07/03/2024Hemodialysis Catheter Triple 06/14/24 Right Internal JugularInactive Right Neck (side) - Sfokthvp47/07/42750507/03/2024 Allergies No known active allergies Medications MedicationSigDispense [...] mL nebulizer Indications:Acute respiratory failure with hypoxia ([facility])Inhale 3 mL by nebulization every 4 (four) hours as needed for wheezing. 30 mL 5Active midodrine (PROAMATINE) 10 mg tablet Take 1 tablet (10 mg total) by mouth as needed (give pre/mid during dialysis as needed for SBP <100).5Active Active Problems ProblemNoted DateDiagnosed DateAcute hypoxic respiratory dfwphfo13/07/2025Acute respiratory xbsywsp6806/14/2024Mucus plug in respiratory tract06/13/2024 Social History Tobacco UseTypesPacks/DayYears UsedDateSmoking Tobacco: Never AssessedChildcare AnswerDate XekfjiyaJuleunpezCuiavmf39/12/2019EmploymentAnswerDate Recorded RsvphelcewJnjnofm75/12/2019CommentsNoSex and Gender InformationValueDate RecordedSex Assigned at BirthNot on fileLegal KudIpcmuo93/06/2015 11:29 AM EDT Gender IdentityNot on fileSexual OrientationNot on file Last Filed Vital Signs Vital SignReadingTime TakenCommentsBlood Nmbsello396/7203 5:00 PM EDT Awqjm627707/03/2024 5:00 PM BRGHfybqienidx91.8 ??C (98.3 ??F)07/03/2024 4:17 PM EDTRespiratory Desb632007/03/2024 5:00 PM EDTOxygen Nljizsjpnf37%07/03/2024 5:00 PM EDTInhaled Oxygen Concentration--Ylkfvn52.4 kg (153 lb)07/03/2024 4:17 PM EDT Exbonp964 cm (5' 5.75 )06/24/2024 8:40 AM EDTBody Mass Index24.8806/24/2024 8:40 AM EDT
--- OUTSIDE RECORDS SUMMARY | 2025-02-13 21:35 | XMS_ITS | Clinical Summary ---
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 Primary Care Provider Medications MedicationSigDispense QuantityRefillsLast FilledStart DateEnd DateStatus LORazepam (Ativan) 1 MG tablet Indications:Anxiety about treatmentTake 1 tablet (1 mg) by mouth Daily Give daily before HD on dialysis days 30 tablet 5Active LORazepam (Ativan) 0.5 MG tablet Indications:Anxiety disorder, unspecified typeTake 1 tablet (0.5 mg) by mouth every 8 (eight) hours if needed for anxiety for up to 14 days 42 tablet 5Active Encounters DateTypeDepartmentCare DubhQgxrlpzvvqk37/21/2025bstract [facility] [address] [place] [address] [phone] UnallocatedAnita MD 01/28/2025bstract [facility] [address] [place] [phone] Katie Velasquez NP 01/17/2025bstract [facility] [address] [place] [address] [phone] UnallocatAnita rich MD 01/17/2025bstract [facility] [address] [place] [phone] UnallocatedAnita MD 01/07/2025bstract [facility] [address] [place] [phone] Katie Velasquez NP from Last 3 Months Social History Tobacco UseTypesPacks/DayYears UsedDateSmoking Tobacco: Never Assessed CommentsUnknownSex and Gender InformationValueDate RecordedSex Assigned at Not on fileLegal ZdmMhngvj45/15/2023 7:05 PM EDTGender IdentityNot on fileSexual OrientationNot on file Plan of Treatment Not on file Insurance * Guarantor: Maria M Redman TypeRelation to PatientDate of BirthPhone Billing AddressPersonal/KzutdcCzvs1965 [address] [phone] Care Teams Team MemberRelationshipSpecialtyStart DateEnd Date Katie Velasquez NP [address] [facility] [place] [address] PCP - GeneralFamily Noluctbw61/8/24
--- OUTSIDE RECORDS SUMMARY | 2025-02-13 21:35 | XMS_ITS | Clinical Summary ---
Author Organization [facility] Address [address] [place] [address] Care Team Providers Care Technical Project Lead Name Role Phone Unavailable Primary Care Provider Unavailabl e Social History Tobacco UseTypesPacks/DayYears UsedDateSmoking Tobacco: Never Assessed CommentsUnknownSex and Gender InformationValueDate RecordedSex Assigned at Not on fileLegal GhpYhmddi73/29/2022 10:33 PM EDTGender IdentityNot on file Sexual OrientationNot on file Plan of Treatment Health MaintenanceDue DateLast DoneCommentsCT Thqqynyafxoq1963Colonoscopy 1963Colorectal Cancer Gpfhfduim1963FIT-DNA1963FIT1965 FOBT1965 8934Npclawocbvusw1963Depression Nldhlrjqg23/23/1975Pneumococcal Vaccine: Pediatrics (0 to 5 Years) and At-Risk Patients (6 to 64 Years) (1 of 2 - PCV)1982Pap Smear01/31/1984Adult Mxradta4101/30/1985Cervical Cancer Fsngebnuw77/23/1993HPV/Upqsib8001/30/19933875Ujustrzgh49/23/2003Zoster Vaccines (1 of 2)2013COVID-19 Vaccine ( - 2024- season)2024Influenza Vaccine (#1)2024HIB VaccinesAged OutNo longer eligible based on patient's age to complete this topicHPV VaccinesAged OutNo longer eligible based on patient's age to complete this topicIPV VaccinesAged OutNo longer eligible based on patient's age to complete this topicMeningococcal B VaccineAged OutNo longer eligible based on patient's age to complete this topicMeningococcal VaccineAged OutNo longer eligible based on patient's age to complete this topicRotavirus Vaccines Aged OutNo longer eligible based on patient's age to complete this topic Insurance
--- OUTSIDE RECORDS SUMMARY | 2025-02-13 21:35 | XMS_ITS ---
Author Organization [facility] Address [address] [place] [id number] Care Team Providers Care Pricer Name Role Phone Unavailable Unavailable Unavailable Allergies, Adverse Reactions, Alerts Allergy Name Allergy Type Status Severity Reaction(s) Onset Date Inactive Date Treating Clinician Comments predniSONE Allergy Active Unknown 2024-12-30 17:05:15ToifnualahIearxlnDdfevrJsuaabo5740-05-46 17:05:23 Problems This patient has no known problems. Procedures Procedure Date / Time Performed Performing Clinician Pooja ce Details Central Venous Catheter (CVC) 2024-06-21 04:00:0 0 Access SiteChest (Right)Access Use Start Ywcx2308-56-86 04:00:00 Encounters No encounter information to report
--- OUTSIDE RECORDS SUMMARY | 2025-02-13 21:35 | XMS_ITS | CCD ---
Author Organization [facility] Inform ion Partnership [facility] Care Team Providers Care Rn Allergy Name Role Phone PHYSICIAN, DEFAULT Unavailable Unavailable PHYSICIAN, DEFAULT Unavailable Unavailable CASON, LASHA Unavailable Unavailable PHYSICIAN, DEFAULT Unavailable Unavailable PHYSICIAN, DEFAULT Unavailable Unavailable CASON, LASHA Unavailable Unavailable DO Segundo Rawls Primary Care Provider DO Hong Jewell Admit Provider [phone] DO Hong Jewell Attending Provider [phone] MD Rehan Russ Other Provider MD Nilesh [...] Other Provider MD Brad Gan Other Provider [phone] EVAN, DR UNIQUE Sher Consulting Unavailable ANNA, DR NEWELL Admitting Unavailable JENNY, DR RAYMOND Primary Care Unavailable ANNA, DR NEWELL Attending Unavailable STEVEN, DR ANTOINE Sheridan Consulting Unavailabl e ANNA, DR NEWELL Consulting Unavailable ROSALINDA SALMERON Consulting Unavailable CODY ALEXANDER Consulting Unavailable JUNO HERNÁNDEZ Admitting Unavailable JENNY, DR RAYMOND Primary Care Unavailable AYDE, DR DENISE Sher Consulting Unavailable JUNO HERNÁNDEZ Attending Unavailable JUNO HERNÁNDEZ Consulting Unavailable DO Segundo Rawls Primary Care Provider DO Caden Jarrell Emergency Provider William Esposito Unavailable Locorbachechristos WEIGH BOX TENDER, Katie Primary Care Provider LocorbacheKatie sher APRN Attending Provider [phone] Unavailable Primary Care Provider Unavailjamie e LocorbacheKatie sher APRN Primary Care Provider Sheryl Santamaria DO Attending Provider [phone] PROVIDER, UNKNOWN Attending Unavailable PROVIDER, UNKNOWN Admitting Unavailable Unavailable Primary Care Provider Unavailjamie e Locorbachechristos REGISTERED CLIENT ASSOCIATE, Katie A Primary Care Provider Locorbacher REGISTERED CLIENT ASSOCIATE, Katie A Primary Care Provider LUCIANA BLISS Admitting Unavailable ANA FALK Referring Unav ailable KATARINA YU Consulting Unavailable QUINTIN FORMAN Attending Unavailable [...] KESHA CHILEL Attending KESHA Brunson Attending Echo e Allergies Allergy ClassificationReported Allergen(s)Allergy TypeDate of OnsetReaction(s) Facility (2 sources)cephalexin; Translations: [KEFLEX]Drug Ubnxvxg49-09-6063KBNEtt [facility] Repository (10 sources)predniSONE; Translations: [PREDNISONE]Drug Lrrtlwa00-31-7733Ftmxscgc [facility] Repository (8 sources)Cephalexin; Translations: [cephalexin]Drug Kaodori71-40-1068Jqckae, [facility] Medications Current Medications MedicationDrug Class(es)DatesSig (Normalized)Sig (Original)acetaminophen 325 mg / HYDROcodone bitartrate 5 mg oral tablet (1 source)Opioid AgonistStart: 09-09-2024 End: 79-55-8884fcdc 1 tablet by mouth every six hours as needed for pain and pain and painHYDROcodone-acetaminophen ([place]) 5-325 MG tablet Indications: Pain Take 1 tablet by mouth every 6 (six) hours if needed for severe pain 120 tablet 09/09/2024 10/09/2024 Activealbuterol 0.833 mg/ml / ipratropium bromide 0.167 mg/ml inhalation solution (1 source)Anticholinergic, beta2-Adrenergic AgonistStart: 80-24-2985bvlk 3 mL by inhalation every four hours as needed for wheezingipratropium-albuteroL (DUONEB) 0.5 mg-3 mg(2.5 mg base)/3 mL nebulizer Indications: Acute respiratory failure with hypoxia ([facility]) Inhale 3 mL by nebulization every 4 (four) hours as needed for wheezing. 30 mL 2 07/03/2024 Activeapixaban 2.5 mg oral tablet (1 source)Factor Xa InhibitorStart: 47-64-4884kvnr 1 tablet by mouth in the morning, then take 1 tablet by mouth at bedtimeELIQUIS 2.5 mg tablet Take 1 tablet (2.5 mg total) by mouth in the morning and 1 tablet (2.5 mg total) before bedtime. 04/28/2024 Activeascorbic acid 500 mg oral tablet (7 sources)Vitamin CStart: 91-50-1088ijud 1 tablet by mouth at breakfastAscorbic Acid (Vitamin C) (Vitamin C) 500 mg Tablet Active 500 MG PO With breakfast and lunch 60 30S2021 12:00amCalcium 1000 + D 1000-20 MG-MCG (1 source)take 1 tablet by mouth twice dailyCalcium 1000 + D 1000-20 MG-MCG 1 tablet with a meal Orally twice a day Activecalcium carbonate 1250 mg oral tablet (6 sources)Start: 52-04-0519Gaultuo Carbonate (Oyster Shell Calcium 500) 500 mg calcium (1,250 mg) Tablet Active 1000 MG PO Twice daily 120 December 10, 2021 12:00amcalcium carbonate 298 mg / magnesium chloride 596 mg delayed release oral tablet (1 source)take 1 tablet by mouth every twenty-four hoursSlow-Mag 71.5-119 MG 1 TABLET Orally Once a day Activecarvedilol 12.5 mg oral tablet (1 source)alpha-Adrenergic Humberto, beta-Adrenergic BlockerStart: 42-75-1966zsnd 1 tablet by mouth in the morning, then take 1 tablet by mouth at bedtime carvediloL (COREG) 12.5 mg tablet Indications: hypertension Take 1 tablet (12.5 mg total) by mouth in the morning and 1 tablet (12.5 mg total) before bedtime. Indications: high blood pressure. 90 tablet 2 07/03/2024 Activecholecalciferol 0.01 mg oral tablet (6 sources)Vitamin DStart: 79-28-5698fccp 1 tablet by mouth twice daily at mealtimeCholecalciferol (Vitamin D3) (Vitamin D3) 10 mcg (400 unit) Tablet Active 20 MCG PO Twice daily with meals December 10, 2021 12:00am0.3 ml darbepoetin anai 0.2 mg/ml prefilled syringe (1 source)Erythropoiesis-stimulating AgentStart: 06-42-5858yfvxmt 0.3 mL by subcutaneous injection every weekdarbepoetin anai-polysorbate (ARANESP) 60 mcg/0.3 mL syringe Indications: anemia due to renal failure Inject 0.3 mL (60 mcg total) under the skin once a week Indications: anemia due to kidney failure. 0.3 mL 5 07/05/2024 Activedocusate sodium 50 mg / sennosides, snf 8.6 mg oral tablet (1 source)Start: 23-46-0520yvsamitzhq-docusate sodium (SENOKOT-S) 8.6-50 mg Take 2 tablets by mouth as needed for constipation. 30 tablet 07/03/2024 Active ferrous sulfate 324 mg delayed release oral tablet (7 sources)Start: 02-43-9096Jvdtdmy Sulfate 324 mg (65 mg iron) Tablet,Delayed Release (Dr/Ec) Active 324 MG PO Q48H 15 December 10, 2021 12:00amtake 1 tablet by mouth every twenty-four hoursFerrous Sulfate 324 MG 1 tablet Orally Once a day Not-Takingfolic acid 1 mg oral tablet (7 sources)Start: 90-30-5272lhnx 1 tablet by mouth once dailyFolic Acid 1 mg Tablet Active 1 MG PO Daily December 10, 2021 12:00amLORazepam 0.5 mg oral tablet (9 sources)BenzodiazepineStart: 08-26-2024 End: 28-42-0735ltfc 1 tablet by mouth every eight hours for anxietyLORazepam (Ativan) 0.5 MG tablet Indications: Anxiety disorder, unspecified type Take 1 tablet (0.5mg) by mouth every 8 (eight) hours if needed for anxiety for up to 14 days 42 tablet 08/26/2024 ActiveStart: 08-16-2024 End: 16-43-5207uxsf 1 tablet by mouth once dailyLORazepam (Ativan) 1 MG tablet Indications: Anxiety about treatment Take 1 tablet (1 mg) by mouth Daily Give daily before HD on dialysis days 30 tablet 08/16/2024 09/15/2024 ActiveStart: 07-26-2024 End: 84-07-0520pjra 2 tablets by mouth once dailyLORazepam (Ativan) 0.5 MG tablet Indications: Anxiety about treatment Take 2 tablets (1 mg) by mouth Daily for 14 days Give daily before HD on Mon, , Mon, , Monday. 28 tablet 07/26/2024 08/16/2024 Discontinuedmagnesium oxide 400 mg oral tablet (8 sources)Start: 09-28-2023 End: 77-08-5476kusk 1 tablet by mouth twice dailyMagnesium Oxide 400 mg magnesium tablet Active 400 MG PO Twice daily 180 90 September 28, 2023 3:07pm metoprolol tartrate 100 mg oral tablet (15 sources)beta-Adrenergic BlockerStart: 09-28-2023 End: 28-10-8931Laahyclbrb Tartrate 100 mg tablet Active 150 MG PO Daily 135 90 September 28, 2023 3:07pmStart: 09-28-2023 End: 98-45-9048zcwi 150 mg by mouth once dailyMetoprolol Tartrate Active 150 MG PO Daily 135 90 September 28, 2023 3:07pmStart: 12-04-2021 End: 18-90-7546twjv 1 tablet by mouth once dailyMetoprolol Succinate 100 mg tablet extended release 24 hr Discontinued 100 MG PO Daily November 12:00am September 28, 2023 2:56pmmidodrine hydrochloride 10 mg oral tablet (1 source)alpha-Adrenergic AgonistStart: 67-24-1008ktardmnst (PROAMATINE) 10 mg tablet Take 1 tablet (10 mg total) by mouth as needed (give pre/mid during dialysis as needed for SBP 07/03/2024 Activepantoprazole 40 mg delayed release oral tablet (1 source)Proton Pump InhibitorStart: 65-76-5811nqis 1 tablet by mouth once daily before breakfastpantoprazole (PROTONIX) 40 mg EC tablet Take 1 tablet (40 mg total) by mouth every morning before breakfast. 05/24/2024 Activethiamine 200 mg oral tablet (7 sources)Start: 97-01-0923Xdswdbah Hcl (Vitamin B1) 100 mg Tablet Active 200 MG PO Daily 60 30 December 10, 2021 12:00amtake 1 tablet by mouth once daily Thiamine HCl 100 MG 1 tablet Orally Once a day ActiveVitamin D3 25 MCG (1000 UT) (1 source)take 1 tablet by mouth twice dailyVitamin D3 25 MCG (1000 UT) 1 tablet Orally twice a day Active Completed/Discontinued Medications MedicationDrug Class(es)DatesSig (Normalized)Sig (Original)cariprazine 1.5 mg oral capsule (1 source)Atypical Antipsychotictake 1 capsule by mouth every twenty-four hours Vraylar 1.5 MG 1 capsule Orally Once a day Not-TakingdiphenhydrAMINE hydrochloride 25 mg oral capsule (6 sources)Histamine-1 Receptor AntagonistStart: 12-04-2021 End: 22-69-6031bkin 1 capsule by mouth twice dailyDiphenhydramine Hcl (Benadryl) 25 mg Capsule Discontinued 25 MG PO Twice daily December 04, 2021 12:00am December 10, 2021 1:24pmfurosemide 40 mg oral tablet (7 sources)Loop DiureticStart: 12-10-2021 End: 00-34-0759drir 1 tablet by mouth once dailyFurosemide 40 mg Tablet Discontinued 40 MG PO Daily at 0800 30 December 10, 2021 12:00am September 28, 2023 2:56pm Further refills, or dose adjustment, per Nephrology with Dr. Esposito. levoFLOXacin 750 mg oral tablet (6 sources)Quinolone AntimicrobialStart: 12-10-2021 End: 96-59-3477Wqqqsllnxgnr 750 mg Tablet Discontinued 750 MG PO Q48H 4 8 December 10, 2021 12:00am September 27, 2023 4:47pm Next dose is due on Monday. levothyroxine sodium 0.1 mg oral capsule (20 sources)l-ThyroxineStart: 09-28-2023 End: 32-75-0934styt 1 capsule by mouth once dailyLevothyroxine 100 mcg capsule Discontinued 100 MCG PO Daily 90 90 September 28, 2023 3:06pm September 3:20pm Start: 12-04-2021 End: 60-19-0150kvhc 1 tablet by mouth once dailyLevothyroxine 100 mcg tablet Active 100 MCG PO Daily September 28, 2023 12:00amtake 1 tablet by mouth once daily in the morningLevothyroxine Sodium 100 MCG 1 tablet in the morning on an empty stomach Orally Once a day Activelisinopril 20 mg oral tablet (6 sources)Angiotensin Converting Enzyme InhibitorStart: 12-04-2021 End: 01-44-0750idoa 1 tablet by mouth once dailyLisinopril 20 mg tablet Discontinued 20 MG PO Daily December 04, 2021 12:00am December 10, 2021 1:24pm magnesium chloride 598 mg delayed release oral tablet (6 sources)Start: 12-10-2021 End: 65-28-6723mhbx 1 tablet by mouth once dailyMagnesium Chloride (Slow-Mag) 71.5 mg tablet,delayed release (/EC) Discontinued 71.5 MG PO Daily December 10, 2021 12:00am September 28, 2023 2:56pmnaltrexone hydrochloride 50 mg oral tablet (1 source)Opioid Antagonisttake 1 tablet by mouth every twenty-four hours Naltrexone HCl 50 MG 1 tablet Orally Once a day Not-Takingomeprazole 20 mg delayed release oral capsule (15 sources)Proton Pump InhibitorStart: 12-04-2021 End: 02-95-5177obok 1 capsule by mouth once dailyOmeprazole 20 mg capsule,delayed release(DR/EC) Discontinued 20 MG PO Daily September 28, 2023 12:00amSeptember 28, 2023 3:09pmsodium bicarbonate 650 mg oral tablet (7 sources)Start: 12-10-2021 End: 82-63-8195bdyx 1 tablet by mouth three times dailySodium Bicarbonate 650 mg Tablet Discontinued 650 MG PO Three times daily December 10, 2021 12:00am September 28, 2023 2:57pm Problems Active Problems Problem ClassificationProblemDateDocumented DateEpisodic/ChronicAcute and unspecified renal failure (8 sources)Injury of kidney; Translations: [Acute kidney failure, unspecified] Onset: 741991-56-1009JmargsfiDyzwr myocardial infarction (11 sources)Myocardial infarction; Translations: [Myocardial infarction type 2] 75-41-8555SwhucmsYsndrch-related disorders (11 sources)Alcohol abuse; Translations: [Alcohol abuse, uncomplicated]Onset: 255681-21-2249LmfrbvvJwgicyt disorders (3 sources)Anxiety disorder, unspecified; Translations: [Anxiety disorder]Onset: 150781-49-7044DtpcqayUdhosui dysrhythmias (20 sources)Atrial fibrillation; Translations: [Unspecified atrial fibrillation] Onset: 816016-52-2545JejjqhvEklmnvr kidney disease (3 sources)Chronic kidney disease stage 4; Translations: [Chronic kidney disease, stage 4 (severe)]Onset: 16-28-2523XrfcravBninxrp kidney disease (2 sources)Chronic kidney disease; Translations: [Chronic kidney disease, stage III (moderate)]Chronic obstructive pulmonary disease and bronchiectasis (1 source)Chronic obstructive pulmonary disease, unspecified; Translations: [COPD UNSPECIFIED]Onset: 28-08-9243ZvsoisdEkzrpmgjunqs of device; implant or graft (1 source)Infection and inflammatory reaction due to other cardiac and vascular devices, implants and grafts,initial encounter; Translations: [Infection and inflammatory reaction due to other cardiac and vascular devices, implants and grafts, initial encounter]Onset: 23-16-6678XmmeadjoYjrikzfipu associated with dizziness or vertigo (3 sources)Dizziness and giddiness; Translations: [DIZZINESS AND GIDDINESS] Onset: 26-52-5792LniauuxrRfeqczhyhi and other anemia (1 source)Anemia of renal disease; Translations: [Anemia in chronic kidney disease]ChronicDeficiency and other anemia (1 source)Anemia in chronic kidney diseaseChronicDeficiency and other anemia (6 sources)Macrocytic anemia; Translations: [Nutritional anemia, unspecified] 65-71-6819FblrycvsRmnknclxga and other anemia (6 sources)Anemia; Translations: [Anemia, unspecified]05-98-0512Swrmhyxu Deficiency and other anemia (2 sources)Anemia, unspecified; Translations: [Anemia, unspecified]Onset: 759587-53-8332TxaupqljVummvdsgrp and other anemia (1 source)Nutritional anemia, unspecified; Translations: [Unspecified deficiency anemia]87-41-2541HpefqhnkDnjotqqwtv disorders (8 sources)Gastroesophageal reflux disease; Translations: [Gastro-esophageal reflux disease without esophagitis]37-39-5534RojcotkXxvkbxmbf hypertension (17 sources)Hypertensive disorder; Translations: [Essential (primary) hypertension]Onset: 765242-12-8240IwqeucmDzjys and electrolyte disorders (17 sources)Hyponatremia; Translations: [Hypo-osmolality and hyponatremia]Onset: 383748-52-9472YovodwtnDsrcbiqgicoi with complications and secondary hypertension (4 sources)Hypertensive urgency ; Translations: [Hypertensive urgency]Chronic Malaise and fatigue (8 sources)Weakness; Translations: [Asthenia]Onset: 39-18-4050Jaklstgy Miscellaneous mental health disorders (2 sources)Anxiety about treatment; Translations: [Other symptoms and signs involving emotional state]75-00-0246CgdyrvtuYuuifemvlcym breast conditions (3 sources)Breast lump; Translations: [Unspecified lump in the left breast, unspecified quadrant]74-61-8245YlkritvgFeqmisqnoor deficiencies (9 sources)Moderate protein energy malnutrition; Translations: [Moderate protein-calorie malnutrition]67-94-1700QhcnrmnIlqqlyzxfmm deficiencies (20 sources)Ascorbic acid deficiency; Translations: [Ascorbic acid deficiency] 58-92-1903TrobxhtzFbpqa aftercare (1 source)Other buttermaker helper (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) 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 therapy; Translations: [OTH SENIOR CARE CURRENT DRUG THERAPY]Onset: 98-73-2079WyzklyweMeqtj and ill-defined heart disease (6 sources)Takotsubo cardiomyopathy; Translations: [Takotsubo syndrome] 53-92-0504UbmlqjsEfsym and ill-defined heart disease (5 sources)Takotsubo syndrome; Translations: [Takotsubo syndrome]12-10-2021 ChronicOther connective tissue disease (2 sources)Recurrent falls ; Translations: [Repeated falls]72-75-8455Wewqlsrs Other connective tissue disease (1 source)Repeated falls; Translations: [History of fall]37-23-6567RcdqidrtPqpdy diseases of bladder and urethra (7 sources)Urethral stenosis; Translations: [Urethral stenosis]12-08-2021 EpisodicOther diseases of kidney and ureters (6 sources)Hydronephrosis; Translations: [Unspecified hydronephrosis]12-08-2021 EpisodicOther diseases of kidney and ureters (1 source)Unspecified hydronephrosis; Translations: [Hydronephrosis]12-10-2021 EpisodicOther hematologic conditions (1 source)Other specified abnormalities of plasma proteins; Translations: [OTH SPEC ABNORM PLASMA PROTEINS]Onset: 03-56-5904MxsqyxbrLqpty injuries and conditions due to external causes (2 sources)Other foreign object in respiratory tract, part unspecified causing other injury, initial encounter; Translations: [Foreign body in respiratory tree, unspecified]Onset: 663712-41-3902LrbmwnymJmfuy injuries and conditions due to external causes (1 source)Other injury of unspecified body region, initial encounter; Translations: [Other injury of unspecified body region, initial encounter]Onset: 15-71-2762EivphgcqZlqeg lower respiratory disease (1 source)Respiratory distressOnset: 04-21-7295RrijkagdWvhsf nutritional; endocrine; and metabolic disorders (7 sources)Hypomagnesemia; Translations: [Hypomagnesemia]36-97-9018BwqcuwnWbmqg nutritional; endocrine; and metabolic disorders (6 sources)Hypocalcemia; Translations: [Hypocalcemia]04-16-6916KppgejlBqjtd nutritional; endocrine; and metabolic disorders (2 sources)Hypocalcemia; Translations: [Hypocalcemia]Onset: 515703-90-0043 ChronicOther nutritional; endocrine; and metabolic disorders (5 sources)Hypomagnesemia; Translations: [Disorders of magnesium metabolism] 76-56-7491DntdaszMmgvy screening for suspected conditions (not mental disorders or infectious disease) (3 sources)Mammography abnormal; Translations: [Other abnormal and inconclusive findings on diagnostic imagingof breast]Onset: 019736-05-3758NynbuwjhYevne skin disorders (3 sources)Breast changes; Translations: [Changes in skin texture]12-27-2023 EpisodicOther skin disorders (2 sources)Changes in skin texture; Translations: [Changes in skin texture] 55-89-8178EhlvkhmfYujhz skin disorders (1 source)Localized swelling, mass and lump, right upper limb; Translations: [Localized swelling, mass and lump, right upper limb]Onset: 67-21-6972Nxsnialr Residual codes; unclassified (3 sources)Noncompliance with treatment; Translations: [Noncompliance]12-28-2023 EpisodicResidual codes; unclassified (1 source)Pain; Translations: [Pain, unspecified]92-00-4443WzpirgmsXbbudvxdytw failure; insufficiency; arrest (adult) (4 sources)Acute respiratory failure; Translations: [Acute respiratory failure with hypoxia]Onset: 985591-62-6052TfpfhhwrLsinhjrujp arthritis and related disease (9 sources)Rheumatoid arthritis; Translations: [Rheumatoid arthritis, unspecified]Onset: 424425-39-2837TsulmolUcfchdxwvi (except in labor) (2 sources)Sepsis, unspecified organism; Translations: [Severe sepsis without septic shock]Onset: 71-79-1291FsqktyxfUkqlrcprl-related disorders (1 source)Nicotine dependence, cigarettes, uncomplicated; Translations: [NICOTINE DEPEND CIGARETTES UNCOMP]Onset: 11-61-5723MndmyaiRqfeptr (7 sources)Vasovagal syncope; Translations: [Syncope and collapse]12-06-2021 EpisodicSystemic lupus erythematosus and connective tissue disorders (8 sources)Lupus erythematosus; Translations: [Systemic lupus erythematosus, unspecified]12-24-9959RbekyvqGvjqfgc disorders (12 sources)Hypothyroidism; Translations: [Hypothyroidism, unspecified]Onset: 915747-13-4067VowigvvJnjueojjwefv (1 source)CONTACT W/AND (SUSP) EXPOS COVID-19; Translations: [CONTACT W/AND (SUSP) EXPOS COVID-19]Onset: 41-43-8102Ndtreebwnwhn (4 sources)Large breast; Translations: [Increased size of breast]12-27-2023 Past or Other Problems Problem ClassificationProblemDateDocumented DateEpisodic/ChronicResidual codes; unclassified (1 source)Pain, unspecified; Translations: [Pain, unspecified]Onset: 06-14-2024 Episodic Results Test NameValueInterpretationReference RangeFacilityBasic Metabolic Panelon 50-64-7337Mkxng gap [Moles/Vol]14.5 mmol/LNormal6.0-15.0[facility] Physician GroupComment on above:Performed By: #### BMP, DIFF CBC #### [facility] [address] [place] [address] USACalcium [Mass/Vol]9.1 mg/dLNormal8.6-10.3[facility] Physician GroupComment on above:Performed By: #### BMP, DIFF CBC #### [facility] [address] [place] [id number] USAChloride [Moles/Vol]95 mmol/GZni92-858Rta [facility] Physician GroupComment on above:Performed By: #### BMP, DIFF CBC #### [facility] [address] [place] [address] USACO2 [Moles/Vol]25.7 mmol/LTvzenw66.0-31.0[facility] Physician GroupComment on above:Performed By: #### BMP, DIFF CBC #### [facility] [address] [place] [address] USACreatinine [Mass/Vol]3.15 mg/dLInvalid Interpretation Code 0.60-1.20The [facility] Physician GroupComment on above:Performed By: #### BMP, DIFF CBC #### [place] [address] USACreatinine Clr Calc Clumrapk63.90NoCrawley Memorial Hospital Physician GroupComment on above:Result Comment: PERFORMED BY: [place] [address] PATHOLOGIST GRAIN DRIER DENILSON COSTA M.D.Performed By: #### BMP, DIFF CBC #### [place] [address] USAEstimated GFR16.175 mL/MinNoCrawley Memorial Hospital Physician [facility] HospitalComment on above:Performed By: #### BMP, DIFF CBC #### [place] [address] USAGlucose [Mass/Vol]88 mg/qRMhafoo95-792Ofe [facility] Physician GroupComment on above:Result Comment: Random Glucose Reference Range is dependent on time and content of last meal. Glucose of more than 200 mg/dL in a nonstressed, ambulatory subject supports the diagnosis of Diabetes Mellitus. ADA recommended reference rangePerformed By: #### BMP, DIFF CBC #### [place] [address] USAPotassium [Moles/Vol]3.2 mmol/LLow3.5-5.1The [facility] Physician GroupComment on above:Performed By: #### BMP, DIFF CBC #### [place] [address] USASodium [Moles/Vol]132 mmol/SBxr393-313Mej [facility] Physician GroupComment on above:Performed By: #### BMP, DIFF CBC #### [place] [address] USAUrea nitrogen [Mass/Vol]39 mg/dLHigh7-25The [facility] Physician GroupComment on above:Performed By: #### BMP, DIFF CBC #### [facility] [address] [place] [id number] USADiff and CBCon 13-42-6452Yiebxkvirakl Ql (Bld)SlightNormal The [facility] Physician GroupComment on above:Performed By: #### BMP, DIFF CBC #### [facility] [address] [place] [address] USABand form neutrophils/100 WBC (Bld)1 %Normal0-5The [facility] Physician GroupComment on above:Performed By: #### BMP, DIFF CBC #### [facility] [address] [place] [address] USABasophils/100 WBC (Bld)1 %Normal0-2[facility] Physician GroupComment on above:Performed By: #### BMP, DIFF CBC #### [place] [address] USAEosinophils/100 WBC (Bld)8 %High1-3The [facility] Physician GroupComment on above:Performed By: #### BMP, DIFF CBC #### [place] [address] USAErythrocyte distribution width (RBC) [Ratio]18.3 %High 11.9-15.3[facility] Physician GroupComment on above:Performed By: #### BMP, DIFF CBC #### [place] [address] USAHematocrit (Bld) [Volume fraction]27.3 %Low34.0-46.4The [facility] Physician GroupComment on above:Performed By: #### BMP, DIFF CBC #### [place] [address] USAHemoglobin (Bld) [Mass/Vol]9.2 g/dLLow11.8-15.4The [facility] Physician GroupComment on above:Performed By: #### BMP, DIFF CBC #### [place] [id number] USAHypochromasiaSlightNormalThe [facility] Comment on above:Performed By: #### BMP, DIFF CBC #### [place] [address] USALymphocytes/100 WBC (Bld)23 %Vywdqw38-71Lqf [facility] Physician GroupComment on above:Performed By: #### BMP, DIFF CBC #### [place] [address] USAMacrocytosisSlightNormAdventHealth DeLand Physician [facility] Comment on above:Performed By: #### BMP, DIFF CBC #### [place] [address] USAMCH (RBC) [Entitic mass]30.6 xiZlrilb44.7-34.3The [facility] Physician GroupComment on above:Performed By: #### BMP, DIFF CBC #### [place] [address] USAMCV (RBC) [Entitic vol]90.2 kJCeeptq22-613Aud [facility] Physician GroupComment on above:Performed By: #### BMP, DIFF CBC #### [place] [address] USAMean Corpuscular HGB Conc33.9 g/kLNwmika60.0-35.0The [facility] Physician [facility] HospitalComment on above:Performed By: #### BMP, DIFF CBC #### [place] [address] USAMetamyelocytes3 %High0-0The [facility] Physician [facility] Comment on above:Performed By: #### BMP, DIFF CBC #### [place] [address] USAMonocytes/100 WBC (Bld)7 %Normal2-11The [facility] Physician GroupComment on above:Performed By: #### BMP, DIFF CBC #### [place] [address] USAPlatelet EstimateDecreasedNormalNoProMedica Fostoria Community Hospitale [facility] Physician [facility] HospitalComment on above:Performed By: #### BMP, DIFF CBC #### [place] [address] USAPlatelet mean volume (Bld) [Entitic vol]7.7 fLNormal 6.3-10.7The [facility] Physician GroupComment on above:Result Comment: PERFORMED BY: [place] [address] PATHOLOGIST GRAIN DRIER DENILSON COSTA M.D.Performed By: #### BMP, DIFF CBC #### [place] [address] USAPlatelet MorphologyNormalNormalNormAdventHealth DeLand Physician GroupComment on above:Result Comment: PERFORMED BY: [place] [address] PATHOLOGIST GRAIN DRIER DENILSON COSTA M.D.Performed By: #### BMP, DIFF CBC #### [place] [address] USAPlatelets (Bld) [#/Vol]143 10*3/yWBzk969-154Obt [facility] Physician GroupComment on above:Performed By: #### BMP, DIFF CBC #### [place] [address] USAPolychromasiaSUNC Health Physician [facility] Comment on above:Performed By: #### BMP, DIFF CBC #### [place] [address] USAPromyelocytes1 %High0-0The [facility] Physician [facility] Comment on above:Performed By: #### BMP, DIFF CBC #### [place] [address] USARBC (Bld) [#/Vol]3.03 10*6/uLLow3.60-5.00The [facility] Physician GroupComment on above:Performed By: #### BMP, DIFF CBC #### [place] [address] USARouleauxSUNC Health Physician [facility] HospitalComment on above:Performed By: #### BMP, DIFF CBC #### [place] [address] USASegmented neutrophils/100 WBC (Bld)56 %Wghjya09-74Mbf [facility] Physician GroupComment on above:Performed By: #### BMP, DIFF CBC #### [place] [address] USAWBC (Bld) [#/Vol]8.3 10*3/uLNormal3.8-11.6The [facility] Physician GroupComment on above:Performed By: #### BMP, DIFF CBC #### [place] [address] USAVancomycin,Randomon 53-15-8962Ksabtgnybe,Qfgncf30.5 ug/mL Normal5.0-20.0The [facility] Physician GroupComment on above:Order Comment: Date of last dose?: [id number] Time of last dose?: ult Comment: Last dose: - PERFORMED BY: [place] [address] PATHOLOGIST GRAIN DRIER DENILSON COSTA M.D.Performed By: #### BMP, DIFF CBC #### [place] [address] USABasic Metabolic Panelon 36-10-4416Fwlbj gap [Moles/Vol] 12.0 mmol/LNormal6.0-15.0The [facility] Physician GroupComment on above:Performed By: #### BMP, DIFF CBC #### [place] [address] USACalcium [Mass/Vol]9.0 mg/dLNormal8.6-10.3The [facility] Physician GroupComment on above:Performed By: #### BMP, DIFF CBC #### [place] [address] USAChloride [Moles/Vol]96 mmol/YWgj32-238Llr [facility] Physician GroupComment on above:Performed By: #### BMP, DIFF CBC #### [place] [address] USACO2 [Moles/Vol]28.4 mmol/DZmpohf83.0-31.0The [facility] Physician GroupComment on above:Performed By: #### BMP, DIFF CBC #### [place] [address] USACreatinine [Mass/Vol]2.13 mg/dLInvalid Interpretation Code 0.60-1.20The [facility] Physician GroupComment on above:Performed By: #### BMP, DIFF CBC #### [place] [address] USACreatinine Clr Calc Ybprtjxf98.33NormBrown Memorial Hospitale [facility] Physician GroupComment on above:Result Comment: PERFORMED BY: [place] [address] PATHOLOGIST GRAIN DRIER DENILSON COSTA M.D.Performed By: #### BMP, DIFF CBC #### [place] [address] USAEstimated GFR25.868 mL/MinNoCrawley Memorial Hospital Physician GroupComment on above:Performed By: #### BMP, DIFF CBC #### [place] [address] USAGlucose [Mass/Vol]86 mg/gGBsanpq66-718Bmr [facility] Physician GroupComment on above:Result Comment: Random Glucose Reference Range is dependent on time and content of last meal. Glucose of more than 200 mg/dL in a nonstressed, ambulatory subject supports the diagnosis of Diabetes Mellitus. ADA recommended reference rangePerformed By: #### BMP, DIFF CBC #### [place] [address] USAPotassium [Moles/Vol]3.4 mmol/LLow3.5-5.1The [facility] Physician GroupComment on above:Performed By: #### BMP, DIFF CBC #### [place] [address] USASodium [Moles/Vol]133 mmol/WWhw003-053Jft [facility] Physician GroupComment on above:Performed By: #### BMP, DIFF CBC #### [place] [address] USAUrea nitrogen [Mass/Vol]26 mg/dLHigh7-25The [facility] Physician GroupComment on above:Performed By: #### BMP, DIFF CBC #### [place] [address] USADiff and CBCon 99-32-2922Pyowkezwgfcx Ql (Bld)SlightNormal The [facility] Physician GroupComment on above:Performed By: #### BMP, DIFF CBC #### [place] [address] USAEosinophils/100 WBC (Bld)4 %High1-3The [facility] Physician GroupComment on above:Performed By: #### BMP, DIFF CBC #### [place] [address] USAErythrocyte distribution width (RBC) [Ratio]18.4 %High 11.9-15.3The [facility] Physician GroupComment on above:Performed By: #### BMP, DIFF CBC #### [place] [address] USAHematocrit (Bld) [Volume fraction]31.3 %Low34.0-46.4The [facility] Physician GroupComment on above:Performed By: #### BMP, DIFF CBC #### [place] [address] USAHemoglobin (Bld) [Mass/Vol]10.4 g/dLLow11.8-15.4The [facility] Physician GroupComment on above:Performed By: #### BMP, DIFF CBC #### [place] [address] USAHypochromasiaSlightNormalThe [facility] Comment on above:Performed By: #### BMP, DIFF CBC #### [place] [address] USALymphocytes/100 WBC (Bld)19 %Bfjvhe13-37Dkk [facility] Physician GroupComment on above:Performed By: #### BMP, DIFF CBC #### [place] [address] USAMCH (RBC) [Entitic mass]30.1 ftEfnbor86.7-34.3The [facility] Physician GroupComment on above:Performed By: #### BMP, DIFF CBC #### [place] [address] USAMCV (RBC) [Entitic vol]90.7 lEJootbt53-435Dtm [facility] Physician GroupComment on above:Performed By: #### BMP, DIFF CBC #### [place] [address] USAMean Corpuscular HGB Conc33.2 g/vEEwcmnl08.0-35.0The [facility] Physician GroupComment on above:Performed By: #### BMP, DIFF CBC #### [place] [address] USAMetamyelocytes2 %High0-0The [facility] Comment on above:Performed By: #### BMP, DIFF CBC #### [place] [address] USAMonocytes/100 WBC (Bld)8 %Normal2-11The [facility] Physician GroupComment on above:Performed By: #### BMP, DIFF CBC #### [place] [address] USAMyelocytes1 %High0-0The [facility] Physician GroupComment on above:Performed By: #### BMP, DIFF CBC #### [place] [address] USAPlatelet EstimateNormalNormalNormAdventHealth DeLand Physician GroupComment on above:Performed By: #### BMP, DIFF CBC #### [place] [address] USAPlatelet mean volume (Bld) [Entitic vol]7.6 fLNormal 6.3-10.7The [facility] Physician GroupComment on above:Result Comment: PERFORMED BY: [place] [address] PATHOLOGIST GRAIN DRIER DENILSON COSTA M.D.Performed By: #### BMP, DIFF CBC #### [place] [address] USAPlatelet MorphologyNormalNormalNormAdventHealth DeLand Physician GroupComment on above:Result Comment: PERFORMED BY: [place] [address] PATHOLOGIST GRAIN DRIER DENILSON COSTA M.D.Performed By: #### BMP, DIFF CBC #### [facility] [address] [place] [address] USAPlatelets (Bld) [#/Vol]153 10*3/gSAbuznq090-343Lyo [facility] Physician GroupComment on above:Performed By: #### BMP, DIFF CBC #### [place] [address] USAPromyelocytes1 %High0-0The [facility] Comment on above:Performed By: #### BMP, DIFF CBC #### [place] [address] USARBC (Bld) [#/Vol]3.45 10*6/uLLow3.60-5.00The [facility] Physician GroupComment on above:Performed By: #### BMP, DIFF CBC #### [place] [address] USASegmented neutrophils/100 WBC (Bld)66 %Vgnofb08-02Mzo [facility] Physician GroupComment on above:Performed By: #### BMP, DIFF CBC #### [place] [address] USAWBC (Bld) [#/Vol]10.0 10*3/uLNormal3.8-11.6The [facility] Physician GroupComment on above:Performed By: #### BMP, DIFF CBC #### [place] [address] USABasic Metabolic Panelon 87-76-5845Xheee gap [Moles/Vol] 15.6 mmol/LHigh6.0-15.0The [facility] Physician GroupComment on above:Performed By: #### BMP, SCAN CBC #### [place] [address] USACalcium [Mass/Vol]8.7 mg/dLNormal8.6-10.3The [facility] Physician GroupComment on above:Performed By: #### BMP, SCAN CBC #### [place] [address] USAChloride [Moles/Vol]92 mmol/EDrf03-002Nge [facility] Physician [facility] HospitalComment on above:Performed By: #### BMP, SCAN CBC #### [place] [address] USACO2 [Moles/Vol]25.1 mmol/OMosroo56.0-31.0The [facility] Physician [facility] HospitalComment on above:Performed By: #### BMP, SCAN CBC #### [place] [address] USACreatinine [Mass/Vol]3.07 mg/dLInvalid Interpretation Code 0.60-1.20The [facility] HospitalComment on above:Performed By: #### BMP, SCAN CBC #### [place] [address] USACreatinine Clr Calc Jxawpdni09.25NoUniversity Hospitals Portage Medical CenterComment on above:Result Comment: PERFORMED BY: [place] [address] PATHOLOGIST GRAIN DRIER DENILSON COSTA M.D.Performed By: #### BMP, SCAN CBC #### [place] [address] USAEstimated GFR16.683 mL/MinNoUniversity Hospitals Portage Medical CenterComment on above:Performed By: #### BMP, SCAN CBC #### [place] [address] USAGlucose [Mass/Vol]76 mg/tOZrqjmq88-931Nft [facility] Physician [facility] HospitalComment on above:Result Comment: Random Glucose Reference Range is dependent on time and content of last meal. Glucose of more than 200 mg/dL in a nonstressed, ambulatory subject supports the diagnosis of Diabetes Mellitus. ADA recommended reference rangePerformed By: #### BMP, SCAN CBC #### [place] [address] USAPotassium [Moles/Vol]3.7 mmol/LNormal3.5-5.1The [facility] Physician [facility] HospitalComment on above:Result Comment: Hemolysis is present at a level that could interfere with the result. Contact lab if redraw is requiredPerformed By: #### BMP, SCAN CBC #### [facility] [address] [place] [address] USASodium [Moles/Vol]129 mmol/EFbx641-812Drk [facility] Physician GroupComment on above:Performed By: #### BMP, SCAN CBC #### [facility] [address] [place] [address] USAUrea nitrogen [Mass/Vol]51 mg/dLHigh7-25The [facility] Physician GroupComment on above:Performed By: #### BMP, SCAN CBC #### [facility] [address] [place] [address] USAScan and CBCon 06-12-1804Xegfhrsogxai Ql (Bld)Moderate NormalThe [facility] Physician GroupComment on above:Performed By: #### BMP, SCAN CBC #### [facility] [address] [place] [address] USABasophils (Bld) [#/Vol]0.1 10*3/uLNormal0.0-0.2The [facility] Physician GroupComment on above:Performed By: #### BMP, SCAN CBC #### [place] [address] USABasophils/100 WBC (Bld)0.5 %Normal.The [facility] Physician GroupComment on above:Performed By: #### BMP, SCAN CBC #### [place] [address] USAEosinophils (Bld) [#/Vol]0.2 10*3/uLNormal0.0-0.45The [facility] Physician GroupComment on above:Performed By: #### BMP, SCAN CBC #### [place] [address] USAEosinophils/100 WBC (Bld)0.8 %Normal.The [facility] Physician GroupComment on above:Performed By: #### BMP, SCAN CBC #### [facility] [address] [place] [address] USAErythrocyte distribution width (RBC) [Ratio]18.6 %High 11.9-15.3The [facility] Physician GroupComment on above:Performed By: #### BMP, SCAN CBC #### [facility] [address] [place] [address] USAHematocrit (Bld) [Volume fraction]26.8 %Low34.0-46.4The [facility] Physician GroupComment on above:Performed By: #### BMP, SCAN CBC #### [facility] [address] [place] [address] USAHemoglobin (Bld) [Mass/Vol]9.0 g/dLLow11.8-15.4The [facility] Physician GroupComment on above:Performed By: #### BMP, SCAN CBC #### [facility] [address] [place] [address] USAHypochromasiaSlightNormalThe [facility] Physician Group Comment on above:Performed By: #### BMP, SCAN CBC #### [facility] [address] [place] [address] USALymphocytes (Bld) [#/Vol]2.0 10*3/uLNormal1.00-4.8The [facility] Physician GroupComment on above:Performed By: #### BMP, SCAN CBC #### [facility] [address] [place] [address] USALymphocytes/100 WBC (Bld)10.0 %Normal.The [facility] Physician GroupComment on above:Performed By: #### BMP, SCAN CBC #### [facility] [address] [place] [address] USAMCH (RBC) [Entitic mass]30.0 vqSnaecb44.7-34.3The [facility] Physician GroupComment on above:Performed By: #### BMP, SCAN CBC #### [facility] [address] [place] [address] USAMCV (RBC) [Entitic vol]89.1 lIOifufu72-372Nso [facility] Physician GroupComment on above:Performed By: #### BMP, SCAN CBC #### [facility] [address] [place] [address] USAMean Corpuscular HGB Conc33.7 g/oHSlnbwu75.0-35.0The [facility] Physician GroupComment on above:Performed By: #### BMP, SCAN CBC #### [place] [address] USAMonocytes (Bld) [#/Vol]0.8 10*3/uLNormal0.0-0.8The [facility] Physician GroupComment on above:Performed By: #### BMP, SCAN CBC #### [place] [address] USAMonocytes/100 WBC (Bld)4.0 %Normal.The [facility] Physician GroupComment on above:Performed By: #### BMP, SCAN CBC #### [place] [address] USANeutrophils (Bld) [#/Vol]16.6 10*3/uLHigh1.8-7.7The [facility] Physician GroupComment on above:Performed By: #### BMP, SCAN CBC #### [place] [address] USANeutrophils/100 WBC (Bld)84.7 %Normal.The [facility] Physician GroupComment on above:Performed By: #### BMP, SCAN CBC #### [place] [address] USANRBC%0.1 /100{WBC}Normal0-0.5The [facility] Physician Group Comment on above:Performed By: #### BMP, SCAN CBC #### [place] [address] USAPlatelet EstimateDecreasedNormalNormalThe [facility] Physician GroupComment on above:Performed By: #### BMP, SCAN CBC #### [facility] [address] [place] [address] USAPlatelet mean volume (Bld) [Entitic vol]8.0 fLNormal 6.3-10.7The [facility] Physician GroupComment on above:Performed By: #### BMP, SCAN CBC #### [place] [address] USAPlatelet MorphologyNormalNormalNormalThe [facility] Physician GroupComment on above:Result Comment: PERFORMED BY: [place] [address] PATHOLOGIST GRAIN DRIER DENILSON COSTA M.D.Performed By: #### BMP, SCAN CBC #### [facility] [address] [place] [address] USAPlatelets (Bld) [#/Vol]148 10*3/lQRqu952-420Dxb [facility] Physician GroupComment on above:Performed By: #### BMP, SCAN CBC #### [facility] [address] [place] [address] USARBC (Bld) [#/Vol]3.01 10*6/uLLow3.60-5.00The [facility] Physician GroupComment on above:Performed By: #### BMP, SCAN CBC #### [place] [address] USAWBC (Bld) [#/Vol]19.7 10*3/uLHigh3.8-11.6The [facility] Physician GroupComment on above:Performed By: #### BMP, SCAN CBC #### [place] [address] USABasic Metabolic Panelon 40-57-0149Lsdpx gap [Moles/Vol] 13.9 mmol/LNormal6.0-15.0The [facility] Physician GroupComment on above:Performed By: #### DIFF CBC, BMP #### [place] [address] USACalcium [Mass/Vol]9.0 mg/dLNormal8.6-10.3The [facility] Physician GroupComment on above:Performed By: #### DIFF CBC, BMP #### [place] [address] USAChloride [Moles/Vol]90 mmol/AUfs03-975Tmh [facility] Physician GroupComment on above:Performed By: #### DIFF CBC, BMP #### [place] [address] USACO2 [Moles/Vol]28.1 mmol/MJqizep51.0-31.0The [facility] Physician GroupComment on above:Performed By: #### DIFF CBC, BMP #### [place] [address] USACreatinine [Mass/Vol]2.14 mg/dLInvalid Interpretation Code 0.60-1.20The [facility] Physician GroupComment on above:Performed By: #### DIFF CBC, BMP #### [place] [address] USACreatinine Clr Calc Ngeuqrqy47.93NormAdventHealth DeLand Physician GroupComment on above:Result Comment: PERFORMED BY: [place] [address] PATHOLOGIST GRAIN DRIER DENILSON COSTA M.D.Performed By: #### DIFF CBC, BMP #### [place] [address] USAEstimated GFR25.724 mL/MinNoCrawley Memorial Hospital Physician [facility] HospitalComment on above:Performed By: #### DIFF CBC, BMP #### [place] [address] USAGlucose [Mass/Vol]85 mg/pAIxbihq63-426Xdo [facility] Physician GroupComment on above:Result Comment: Random Glucose Reference Range is dependent on time and content of last meal. Glucose of more than 200 mg/dL in a nonstressed, ambulatory subject supports the diagnosis of Diabetes Mellitus. ADA recommended reference rangePerformed By: #### DIFF CBC, BMP #### [place] [address] USAPotassium [Moles/Vol]4.0 mmol/LInvalid Interpretation Code 3.5-5.1The [facility] Physician GroupComment on above:Performed By: #### DIFF CBC, BMP #### [place] [address] USASodium [Moles/Vol]128 mmol/EVhf413-036Icq [facility] Physician GroupComment on above:Performed By: #### DIFF CBC, BMP #### [place] [address] USAUrea nitrogen [Mass/Vol]29 mg/dLInvalid Interpretation Code7-25The [facility] Physician GroupComment on above:Performed By: #### DIFF CBC, BMP #### [facility] [address] [place] [address] USADiff and CBCon 81-66-5180Xbqhcwdgfndd Ql (Bld)SlightNormal The [facility] Physician GroupComment on above:Performed By: #### DIFF CBC, BMP #### [facility] [address] [place] [address] USABand form neutrophils/100 WBC (Bld)4 %Normal0-5The [facility] Physician GroupComment on above:Performed By: #### DIFF CBC, BMP #### [facility] [address] [place] [address] USABasophils/100 WBC (Bld)0 %Normal0-2The [facility] Physician GroupComment on above:Performed By: #### DIFF CBC, BMP #### [place] [address] USAEosinophils/100 WBC (Bld)0 %Low1-3The [facility] Physician GroupComment on above:Performed By: #### DIFF CBC, BMP #### [place] [address] USAErythrocyte distribution width (RBC) [Ratio]18.8 %High 11.9-15.3The [facility] Physician GroupComment on above:Performed By: #### DIFF CBC, BMP #### [place] [address] USAHematocrit (Bld) [Volume fraction]28.3 %Low34.0-46.4The [facility] Physician GroupComment on above:Performed By: #### DIFF CBC, BMP #### [facility] [address] [place] [address] USAHemoglobin (Bld) [Mass/Vol]9.5 g/dLLow11.8-15.4The [facility] Physician GroupComment on above:Performed By: #### DIFF CBC, BMP #### [place] [address] USALymphocytes/100 WBC (Bld)6 %Zry55-56Cqm [facility] Physician GroupComment on above:Performed By: #### DIFF CBC, BMP #### [address] (RBC) [Entitic mass]29.9 dqKbncjy64.7-34.3The [facility] Physician GroupComment on above:Performed By: #### DIFF CBC, BMP #### [address] (RBC) [Entitic vol]88.9 jWEgnawb51-308Ekv [facility] Physician GroupComment on above:Performed By: #### DIFF CBC, BMP #### [place] [address] USAMean Corpuscular HGB Conc33.6 g/nOLnmriy15.0-35.0The [facility] Physician GroupComment on above:Performed By: #### DIFF CBC, BMP #### [place] [address] USAMonocytes/100 WBC (Bld)9 %Normal2-11The [facility] Physician GroupComment on above:Performed By: #### DIFF CBC, BMP #### [place] [address] USAPlatelet EstimateNormalNormalNormAdventHealth DeLand Physician GroupComment on above:Performed By: #### DIFF CBC, BMP #### [place] [address] USAPlatelet mean volume (Bld) [Entitic vol]8.2 fLNormal 6.3-10.7The [facility] Physician GroupComment on above:Performed By: #### DIFF CBC, BMP #### [place] [address] USAPlatelet MorphologyNormalNormalNormAdventHealth DeLand Physician GroupComment on above:Result Comment: PERFORMED BY: [place] [address] PATHOLOGIST GRAIN DRIER DENILSON COSTA M.D.Performed By: #### DIFF CBC, BMP #### [facility] [address] [place] [address] USAPlatelets (Bld) [#/Vol]165 10*3/fDCcnykj171-989Otj [facility] Physician GroupComment on above:Performed By: #### DIFF CBC, BMP #### [place] [address] USARBC (Bld) [#/Vol]3.18 10*6/uLLow3.60-5.00The [facility] Physician GroupComment on above:Performed By: #### DIFF CBC, BMP #### [place] [address] USARBC morphology finding Nom (Bld)NormalNormalNormalThe [facility] Physician GroupComment on above:Performed By: #### DIFF CBC, BMP #### [place] [address] USASegmented neutrophils/100 WBC (Bld)81 %Rcpr55-94Yxo [facility] Physician GroupComment on above:Performed By: #### DIFF CBC, BMP #### [place] [address] USAWBC (Bld) [#/Vol]40.8 10*3/uLHigh3.8-11.6The [facility] Physician GroupComment on above:Performed By: #### DIFF CBC, BMP #### [place] [address] USAComprehensive Metabolic Panelon 68-00-6008Fhbqtrl [Mass/Vol]3.6 g/dLNormal3.5-5.7The [facility] Physician GroupComment on above: Performed By: #### BMP, DIFF CBC #### [place] [address] USAAlbumin/Globulin [Mass ratio]1.2 {ratio}NormalThe [facility] Physician GroupComment on above:Performed By: #### BMP, DIFF CBC #### [place] [address] USAALP [Catalytic activity/Vol]36 U/PUskeoz11-027Kji [facility] Physician GroupComment on above:Performed By: #### BMP, DIFF CBC #### [facility] [address] [place] [address] USAALT [Catalytic activity/Vol]14 U/LNormal7-52The [facility] Physician GroupComment on above:Performed By: #### BMP, DIFF CBC #### [facility] [address] [place], [place] [address] USAAnion gap [Moles/Vol]17.0 mmol/LHigh6.0-15.0The [facility] Physician GroupComment on above:Performed By: #### BMP, DIFF CBC #### [facility] [address] [place] [address] USAAST [Catalytic activity/Vol]25 U/QRvvfpm68-06Zip [facility] Physician GroupComment on above:Performed By: #### BMP, DIFF CBC #### [place] [address] USABilirubin [Mass/Vol]1.8 mg/dLHigh0.3-1.0The [facility] Physician GroupComment on above:Result Comment: Samples from patients who have taken Naproxen have shown spurious elevation in Total Bilirubin levels. A metabolite of Naproxen, O-desmethylnaproxen, has been shown to interfere with the Jenvalenciaik-Kleverf method for measuring Total Bilirubin.Performed By: #### BMP, DIFF CBC #### [facility] [address] [place] [address] USACalcium [Mass/Vol]9.3 mg/dLNormal8.6-10.3The [facility] Physician GroupComment on above:Performed By: #### BMP, DIFF CBC #### [facility] [address] [place] [id number] USAChloride [Moles/Vol]90 mmol/NVip87-320Ihn [facility] Physician GroupComment on above:Performed By: #### BMP, DIFF CBC #### [facility] [address] [place] [address] USACO2 [Moles/Vol]21.8 mmol/MUteubf86.0-31.0The [facility] Physician GroupComment on above:Performed By: #### BMP, DIFF CBC #### [facility] [address] [place] [address] USACreatinine [Mass/Vol]3.88 mg/dLHigh0.60-1.20The [facility] Physician GroupComment on above:Performed By: #### BMP, DIFF CBC #### [facility] [address] [place] [address] USACreatinine Clr Calc Mteuqxqv07.25NoCrawley Memorial Hospital Physician GroupComment on above:Result Comment: PERFORMED BY: [facility] [address] [place] [address] PATHOLOGIST GRAIN DRIER DENILSON COSTA M.D.Performed By: #### BMP, DIFF CBC #### [place] [address] USAEstimated GFR12.596 mL/MinNoCrawley Memorial Hospital Physician [facility] HospitalComment on above:Performed By: #### BMP, DIFF CBC #### [facility] [address] [place] [address] USAGlobulin (S) [Mass/Vol]3.0 g/dLNoCrawley Memorial Hospital Physician GroupComment on above:Performed By: #### BMP, DIFF CBC #### [place] [address] USAGlucose [Mass/Vol]82 mg/wBRnewdw25-218Ulf [facility] Physician GroupComment on above:Result Comment: Random Glucose Reference Range is dependent on time and content of last meal. Glucose of more than 200 mg/dL in a nonstressed, ambulatory subject supports the diagnosis of Diabetes Mellitus. ADA recommended reference rangePerformed By: #### BMP, DIFF CBC #### [facility] [address] [place] [address] USAPotassium [Moles/Vol]5.8 mmol/LHigh3.5-5.1The [facility] Physician GroupComment on above:Performed By: #### BMP, DIFF CBC #### [place] [address] USAProtein [Mass/Vol]6.6 g/dLNormal6.4-8.9The [facility] Physician GroupComment on above:Performed By: #### BMP, DIFF CBC #### [place] [address] USASodium [Moles/Vol]123 mmol/LOff scale opi609-465Ift [facility] Physician GroupComment on above:Result Comment: Critical Result Called to and read back by: DANNY NOLAND at: 09/18/2024 05:03:31 by:HARPERPerformed By: #### BMP, DIFF CBC #### [place] [address] USAUrea nitrogen [Mass/Vol]59 mg/dLHigh7-25The [facility] Physician GroupComment on above:Performed By: #### BMP, DIFF CBC #### [place] [address] USAScan and CBCon 15-21-2638Emomwjvxrsdw Ql (Bld)Moderate NormalThe [facility] Physician GroupComment on above:Performed By: #### BMP, DIFF CBC #### [place] [address] USABasophils (Bld) [#/Vol]0.1 10*3/uLNormal0.0-0.2The [facility] Physician GroupComment on above:Performed By: #### BMP, DIFF CBC #### [place] [address] USABasophils/100 WBC (Bld)0.1 %Normal.The [facility] Physician GroupComment on above:Performed By: #### BMP, DIFF CBC #### [place] [address] USAEosinophils (Bld) [#/Vol]0.1 10*3/uLNormal0.0-0.45The [facility] Physician GroupComment on above:Performed By: #### BMP, DIFF CBC #### [place] [address] USAEosinophils/100 WBC (Bld)0.3 %Normal.The [facility] Physician GroupComment on above:Performed By: #### BMP, DIFF CBC #### [facility] [address] [place] [address] USAErythrocyte distribution width (RBC) [Ratio]19.5 %High 11.9-15.3The [facility] Physician GroupComment on above:Performed By: #### BMP, DIFF CBC #### [facility] [address] [place] [address] USAHematocrit (Bld) [Volume fraction]28.1 %Low34.0-46.4The [facility] Physician GroupComment on above:Performed By: #### BMP, DIFF CBC #### [place] [address] USAHemoglobin (Bld) [Mass/Vol]9.4 g/dLLow11.8-15.4The [facility] Physician GroupComment on above:Performed By: #### BMP, DIFF CBC #### [place] [address] USALymphocytes (Bld) [#/Vol]0.6 10*3/uLLow1.00-4.8The [facility] Physician GroupComment on above:Performed By: #### BMP, DIFF CBC #### [place] [address] USALymphocytes/100 WBC (Bld)1.8 %Normal.The [facility] Physician GroupComment on above:Performed By: #### BMP, DIFF CBC #### [place] [address] USAMCH (RBC) [Entitic mass]30.0 uqLwlaiy09.7-34.3The [facility] Physician GroupComment on above:Performed By: #### BMP, DIFF CBC #### [place] [address] USAMCV (RBC) [Entitic vol]89.9 cHNazasi34-750Whz [facility] Physician GroupComment on above:Performed By: #### BMP, DIFF CBC #### [place] [address] USAMean Corpuscular HGB Conc33.3 g/pWSmuoaf68.0-35.0The [facility] Physician GroupComment on above:Performed By: #### BMP, DIFF CBC #### [place] [address] USAMonocytes (Bld) [#/Vol]2.6 10*3/uLHigh0.0-0.8The [facility] Physician GroupComment on above:Performed By: #### BMP, DIFF CBC #### [place] [address] USAMonocytes/100 WBC (Bld)7.3 %Normal.The [facility] Physician GroupComment on above:Performed By: #### BMP, DIFF CBC #### [place] [address] USANeutrophils (Bld) [#/Vol]31.9 10*3/uLHigh1.8-7.7The [facility] Physician GroupComment on above:Performed By: #### BMP, DIFF CBC #### [place] [address] USANeutrophils/100 WBC (Bld)90.5 %Normal.The [facility] Physician GroupComment on above:Performed By: #### BMP, DIFF CBC #### [place] [address] USANRBC%0.0 /100{WBC}Normal0-0.5The [facility]ician Group Comment on above:Performed By: #### BMP, DIFF CBC #### [place] [address] USAPlatelet EstimateNormalNormalNormAdventHealth DeLand Physician GroupComment on above:Performed By: #### BMP, DIFF CBC #### [place] [address] USAPlatelet mean volume (Bld) [Entitic vol]7.9 fLNormal 6.3-10.7The [facility] Physician GroupComment on above:Performed By: #### BMP, DIFF CBC #### [place] [address] USAPlatelet MorphologyNormalNormalNormAdventHealth DeLand Physician GroupComment on above:Result Comment: PERFORMED BY: [place] [address] PATHOLOGIST GRAIN DRIER DENILSON COSTA M.D.Performed By: #### BMP, DIFF CBC #### [place] [address] USAPlatelets (Bld) [#/Vol]153 10*3/oNMtpjqq532-626Gmi [facility] Physician GroupComment on above:Performed By: #### BMP, DIFF CBC #### [place] [address] USARBC (Bld) [#/Vol]3.13 10*6/uLLow3.60-5.00The [facility] Physician GroupComment on above:Performed By: #### BMP, DIFF CBC #### [place] [address] USAWBC (Bld) [#/Vol]35.3 10*3/uLHigh3.8-11.6The [facility] Physician GroupComment on above:Performed By: #### BMP, DIFF CBC #### [place] [address] USAABO/Rh Retypeon 34-77-5394CZU/RH Recheck ResultPositive NormalThe [facility] Physician GroupComment on above:Result Comment: PERFORMED BY: [place] [address] PATHOLOGIST GRAIN DRIER DENILSON COSTA M.D.Basic Metabolic Panelon 54-18-8011Ykwey gap [Moles/Vol]14.2 mmol/LNormal6.0-15.0The [facility] Physician GroupComment on above:Performed By: #### BMP, DIFF CBC #### [place] [address] USACalcium [Mass/Vol]8.8 mg/dLNormal8.6-10.3The [facility] Physician GroupComment on above:Performed By: #### BMP, DIFF CBC #### [place] [address] USAChloride [Moles/Vol]91 mmol/DFms64-559Sym [facility] Physician GroupComment on above:Performed By: #### BMP, DIFF CBC #### [facility] [address] [place] [address] USACO2 [Moles/Vol]25.7 mmol/HGmogvx37.0-31.0The [facility] Physician GroupComment on above:Performed By: #### BMP, DIFF CBC #### [facility] [address] [place] [address] USACreatinine [Mass/Vol]3.49 mg/dLHigh0.60-1.20The [facility] Physician GroupComment on above:Performed By: #### BMP, DIFF CBC #### [place] [address] USACreatinine Clr Calc Hsbxsvig16.85NoCrawley Memorial Hospital Physician [facility] HospitalComment on above:Result Comment: PERFORMED BY: [place] [address] PATHOLOGIST GRAIN DRIER DENILSON COSTA M.D.Performed By: #### BMP, DIFF CBC #### [place] [address] USAEstimated GFR14.303 mL/MinNoCrawley Memorial Hospital Physician [facility] HospitalComment on above:Performed By: #### BMP, DIFF CBC #### [place] [address] USAGlucose [Mass/Vol]64 mg/rJCtv10-565Bex [facility] Physician GroupComment on above:Result Comment: Random Glucose Reference Range is dependent on time and content of last meal. Glucose of more than 200 mg/dL in a nonstressed, ambulatory subject supports the diagnosis of Diabetes Mellitus. ADA recommended reference rangePerformed By: #### BMP, DIFF CBC #### [place] [address] USAPotassium [Moles/Vol]4.9 mmol/LNormal3.5-5.1The [facility] Physician GroupComment on above:Performed By: #### BMP, DIFF CBC #### [place] [address] USASodium [Moles/Vol]126 mmol/ATxm127-479Tnp [facility] Physician GroupComment on above:Performed By: #### BMP, DIFF CBC #### [place] [address] USAUrea nitrogen [Mass/Vol]43 mg/dLHigh7-25The [facility] Physician GroupComment on above:Performed By: #### BMP, DIFF CBC #### [place] [address] USABlood Cultureon 92-92-5566Ppqwrcea identified Cx Nom (Bld) NO GROWTH 5 DAYS PERFORMED BY: [address] [place] [address] PATHOLOGIST GRAIN DRIER DENILSON COSTA M.D.NormalThe [facility] Physician GroupComment on above: Performed By: #### BMP, DIFF CBC #### [place] [address] USACT abdomen pelvis w conon [id number] abdomen pelvis w [facility] [place] [address] [place] [address] CT Scan Report Signed Patient: Orestes Alvares MR#: [id number] : 1965 Acct:[id number] Age/Sex: 59 / F ADM Date: 09/17/24 Loc: Room: [address] [place] [address] Type: DIS IN Attending Dr: Rosalinda Alfonso [...] Bunch M.D. 09/17/2024 11:11 AM Dictation Location: [place] [address] Transcribed By: [facility] 09/17/24 1111 Dictated By: Zhen Bunch DO 09/17/24 1102 Signed By: 09/17/24 1111NoCrawley Memorial Hospital Physician [facility] General HospitalClostridium Difficileon 74-35-4730Oxobkxghqyq DifficileNegativeNormalNegativeThe [facility] Physician GroupComment on above:Order Comment: > or = to 3 loose/watery stools in the last 24 HRS? Y Is patient on promotility agents or tube feeding? NResult Comment: Testing performed by RT-PCR PERFORMED BY: [place] [address] PATHOLOGIST GRAIN DRIER DENILSNO COSTA M.D.Performed By: #### BMP, DIFF CBC #### [facility] [address] [place] [address] USAComprehensive Metabolic Panelon 64-74-4938Kbsebtc [Mass/Vol]3.3 g/dLLow3.5-5.7The [facility] Physician GroupComment on above: Performed By: #### CUU #### [place] [address] USAAlbumin/Globulin [Mass ratio]1.3 {ratio}NormalThe [facility] Physician GroupComment on above:Performed By: #### CUU #### [place] [address] USAALP [Catalytic activity/Vol]32 U/OYry53-122Tmn [facility] Physician GroupComment on above:Performed By: #### CUU #### [place] [address] USAALT [Catalytic activity/Vol]13 U/LNormal7-52The [facility] Physician GroupComment on above:Performed By: #### CUU #### [place] [address] USAAnion gap [Moles/Vol]13.8 mmol/LNormal6.0-15.0The [facility] Physician GroupComment on above:Performed By: #### CUU #### [place] [address] USAAST [Catalytic activity/Vol]23 U/TKtohsn81-90Fcm [facility] Physician GroupComment on above:Performed By: #### CUU #### [place] [address] USABilirubin [Mass/Vol]0.7 mg/dLNormal0.3-1.0The [facility] Physician GroupComment on above:Performed By: #### CUU #### [place] [address] USACalcium [Mass/Vol]8.8 mg/dLNormal8.6-10.3The [facility] Physician GroupComment on above:Performed By: #### CUU #### [place] [address] USAChloride [Moles/Vol]91 mmol/QAfq93-153Tgx [facility] Physician GroupComment on above:Performed By: #### CUU #### [place] [address] USACO2 [Moles/Vol]26.6 mmol/LAunkax20.0-31.0The [facility] Physician GroupComment on above:Performed By: #### CUU #### [place] [address] USACreatinine [Mass/Vol]3.57 mg/dLHigh0.60-1.20The [facility] Physician GroupComment on above:Performed By: #### CUU #### [place] [address] USACreatinine Clr Calc Srvdazlx70.49NormAdventHealth DeLand Physician GroupComment on above:Result Comment: PERFORMED BY: [place] [address] PATHOLOGIST GRAIN DRIER DENILSON COSTA M.D.Performed By: #### CUU #### [place] [address] USAEstimated GFR13.919 mL/MinNoCrawley Memorial Hospital Physician [facility] HospitalComment on above:Performed By: #### CUU #### [place] [address] USAGlobulin (S) [Mass/Vol]2.5 g/dLNoCrawley Memorial Hospital Physician [facility] HospitalComment on above:Performed By: #### CUU #### [place] [address] USAGlucose [Mass/Vol]72 mg/dVOfyylx53-266Lza [facility] Physician GroupComment on above:Result Comment: Random Glucose Reference Range is dependent on time and content of last meal. Glucose of more than 200 mg/dL in a nonstressed, ambulatory subject supports the diagnosis of Diabetes Mellitus. ADA recommended reference rangePerformed By: #### CUU #### [place] [address] USAPotassium [Moles/Vol]5.4 mmol/LHigh3.5-5.1The [facility] Physician GroupComment on above:Performed By: #### CUU #### [place] [address] USAProtein [Mass/Vol]5.8 g/dLLow6.4-8.9The [facility] Physician GroupComment on above:Performed By: #### CUU #### [place] [address] USASodium [Moles/Vol]126 mmol/ZYam922-431Dwk [facility] Physician GroupComment on above:Performed By: #### CUU #### [facility] [address] [place] [address] USAUrea nitrogen [Mass/Vol]49 mg/dLHigh7-25The [facility] Physician GroupComment on above:Performed By: #### CUU #### [place] [address] USACortisolon 57-36-7677Giswpxtr37.3 ug/dLNormalThe [facility] Physician GroupComment on above:Result Comment: Reference range: AM 6 - 24 ug/dl PM <10 ug/dl [facility] Laboratory machinery mover and method: ELIZABETH UNICEL DXI, POLYCLONAL ANTIBODY CORTISOL ASSAY. PERFORMED BY: [place] [address] PATHOLOGIST GRAIN DRIER DENILSON COSTA M.D.Performed By: #### CUU #### [place] [address] USADiff and CBCon 35-02-3360Ckynkbkybkhz Ql (Bld)Moderate NormalThe [facility] Physician GroupComment on above:Performed By: #### CUU #### [place] [address] USABand form neutrophils/100 WBC (Bld)28 %High0-5The [facility] Physician GroupComment on above:Performed By: #### CUU #### [place] [address] USAErythrocyte distribution width (RBC) [Ratio]19.5 %High 11.9-15.3The [facility] Physician GroupComment on above:Performed By: #### CUU #### [place] [address] USAHematocrit (Bld) [Volume fraction]20.3 %Low34.0-46.4The [facility] Physician GroupComment on above:Performed By: #### CUU #### [facility] [address] [place] [address] USAHemoglobin (Bld) [Mass/Vol]6.6 g/dLLow11.8-15.4The [facility] Physician GroupComment on above:Performed By: #### CUU #### [facility] [address] [place] [address] USALymphocytes/100 WBC (Bld)2 %Zva18-49Ipe [facility] Physician GroupComment on above:Performed By: #### CUU #### [facility] [address] [place] [address] USAMCH (RBC) [Entitic mass]30.2 utThvavu13.7-34.3The [facility] Physician GroupComment on above:Performed By: #### CUU #### [facility] [address] [place] [address] USAMCV (RBC) [Entitic vol]92.7 hVGcyclx68-169Mzo [facility] Physician GroupComment on above:Performed By: #### CUU #### [place] [address] USAMean Corpuscular HGB Conc32.6 g/zITciaop12.0-35.0The [facility] Physician GroupComment on above:Performed By: #### CUU #### [facility] [address] [place] [address] USAMetamyelocytes4 %High0-0The [facility] Physician Group Comment on above:Performed By: #### CUU #### [place] [address] USAMonocytes/100 WBC (Bld)7 %Normal2-11The [facility] Physician GroupComment on above:Performed By: #### CUU #### [place] [address] USAPlatelet EstimateNormalNormalNormalThe [facility] Physician GroupComment on above:Performed By: #### CUU #### [place] [address] USAPlatelet mean volume (Bld) [Entitic vol]7.2 fLNormal 6.3-10.7The [facility] Physician GroupComment on above:Performed By: #### CUU #### [place] [address] USAPlatelet MorphologyNormalNormalNoCrawley Memorial Hospital Physician GroupComment on above:Result Comment: PERFORMED BY: [place] [address] PATHOLOGIST GRAIN DRIER DENILSON COSTA M.D.Performed By: #### CUU #### [place] [address] USAPlatelets (Bld) [#/Vol]177 10*3/oXOwmowv336-496Myl [facility] Physician GroupComment on above:Performed By: #### CUU #### [place] [address] USARBC (Bld) [#/Vol]2.19 10*6/uLLow3.60-5.00The [facility] Physician GroupComment on above:Performed By: #### CUU #### [place] [address] USASegmented neutrophils/100 WBC (Bld)60 %Zvnrml57-87Khh [facility] Physician GroupComment on above:Performed By: #### CUU #### [place] [address] USAToxic VacuolationSlightNoCrawley Memorial Hospital Physician Group Comment on above:Performed By: #### CUU #### [place] [address] USAWBC (Bld) [#/Vol]29.0 10*3/uLHigh3.8-11.6The [facility] Physician GroupComment on above:Performed By: #### CUU #### [place] [address] USAAnisocytosis Ql (Bld)ModerateNoProMedica Fostoria Community Hospitale [facility] Physician GroupComment on above:Performed By: #### BMP, DIFF CBC #### [facility] [address] [place] [address] USABand form neutrophils/100 WBC (Bld)16 %High0-5The [facility] Physician GroupComment on above:Performed By: #### BMP, DIFF CBC #### [place] [address] USAErythrocyte distribution width (RBC) [Ratio]19.1 %High 11.9-15.3The [facility] Physician GroupComment on above:Performed By: #### BMP, DIFF CBC #### [place] [address] USAHematocrit (Bld) [Volume fraction]20.7 %Low34.0-46.4The [facility] Physician GroupComment on above:Performed By: #### BMP, DIFF CBC #### [place] [address] USAHemoglobin (Bld) [Mass/Vol]6.8 g/dLLow11.8-15.4The [facility] Physician GroupComment on above:Performed By: #### BMP, DIFF CBC #### [place] [address] USALymphocytes/100 WBC (Bld)4 %Qyu14-39Rkq [facility] Physician GroupComment on above:Performed By: #### BMP, DIFF CBC #### [place] [address] USAMCH (RBC) [Entitic mass]30.5 lhDodddn69.7-34.3The [facility] Physician GroupComment on above:Performed By: #### BMP, DIFF CBC #### [place] [address] USAMCV (RBC) [Entitic vol]92.9 gORduazp52-856Rts [facility] Physician GroupComment on above:Performed By: #### BMP, DIFF CBC #### [place] [address] USAMean Corpuscular HGB Conc32.9 g/mCOsmfla10.0-35.0The [facility] Physician GroupComment on above:Performed By: #### BMP, DIFF CBC #### [place] [address] USAMetamyelocytes4 %High0-0The [facility] Physician Group Comment on above:Performed By: #### BMP, DIFF CBC #### [place] [address] USAMonocytes/100 WBC (Bld)5 %Normal2-11The [facility] Physician GroupComment on above:Performed By: #### BMP, DIFF CBC #### [place] [address] USAPlatelet EstimateNormalNormalNormAdventHealth DeLand Physician GroupComment on above:Performed By: #### BMP, DIFF CBC #### [place] [address] USAPlatelet mean volume (Bld) [Entitic vol]7.5 fLNormal 6.3-10.7The [facility] Physician GroupComment on above:Performed By: #### BMP, DIFF CBC #### [place] [address] USAPlatelet MorphologyNormalNormalNormBrown Memorial Hospitale [facility] Physician GroupComment on above:Result Comment: PERFORMED BY: [place] [address] PATHOLOGIST GRAIN DRIER DENILSON COSTA M.D.Performed By: #### BMP, DIFF CBC #### [place] [address] USAPlatelets (Bld) [#/Vol]203 10*3/aYTkqgnh593-983Twp [facility] Physician GroupComment on above:Performed By: #### BMP, DIFF CBC #### [place] [address] USARBC (Bld) [#/Vol]2.22 10*6/uLLow3.60-5.00The [facility] Physician GroupComment on above:Performed By: #### BMP, DIFF CBC #### [place] [address] USASegmented neutrophils/100 WBC (Bld)73 %Swar49-08Eep [facility] Physician [facility] HospitalComment on above:Performed By: #### BMP, DIFF CBC #### [facility] [address] [place] [address] USAWBC (Bld) [#/Vol]25.3 10*3/uLHigh3.8-11.6The [facility] Physician [facility] HospitalComment on above:Performed By: #### BMP, DIFF CBC #### [facility] [address] [place] [id number] USAECG 12 lead ECGon 61-00-6003DCP 12 lead ECGHIGHLAND [facility] [place] [address] [place] [address] Electrocardiograph Report Signed Patient: Orestes Alvares MR#: [id number] : 1965 Acct:[id number] Age/Sex: 59 / F ADM Date: 09/17/24 Loc: Room: [address] [place] [address] Type: ADM IN Attending Dr: Natalei Pak MD Ordering Provider: Law Shaffer MD [...] replaced Atrial flutter Confirmed by LUCINA BLAIR [facility] [place] ([id number]) on 09/18/2024 4:08:51 PM Referred By: Electronically Signed By: KYLAH VERDUGO MD [facility] Transcribed By: MUS Signed By Kylah Verdugo MD, FACC 09/18/24 1608NoCrawley Memorial Hospital Physician GroupGastrointestinal Profile, PCRon [id number] F 40/41Not detectedNormalNot DetectedThe [facility] Physician [facility] HospitalComment on above:Order Comment: SOURCE OF SPECIMEN: stool Performed By: #### BMP, DIFF CBC #### [facility] [address] [place] [address] USAAstrovirusNot detectedNormalNot DetectedThe [facility] General HospitalComment on above:Order Comment: SOURCE OF SPECIMEN: stool Performed By: #### BMP, DIFF CBC #### [facility] [facility] [address] [place] [address] USAC Difficile Toxin A/BNot detectedNormalNot DetectedThe Warren General HospitalComment on above:Order Comment: SOURCE OF SPECIMEN: stoolPerformed By: #### BMP, DIFF CBC #### [facility] [address] [place] [address] USACampylobacterNot detectedNormalNot DetectedThe Warren General HospitalComment on above:Order Comment: SOURCE OF SPECIMEN: stool Performed By: #### BMP, DIFF CBC #### [facility] [address] [place] [address] USACryptosporidiumNot detectedNormalNot DetectedThe Warren General HospitalComment on above:Order Comment: SOURCE OF SPECIMEN: stool Performed By: #### BMP, DIFF CBC #### [facility] [address] [place] [address] USACyclospora cayetanensisNot detectedNormalNot DetectedThe [facility] Physician [facility] HospitalComment on above:Order Comment: SOURCE OF SPECIMEN: stoolPerformed By: #### BMP, DIFF CBC #### [facility] [address] [place] [address] USAE coli H663Wpy applicableNormalNot DetectedThe [facility] Physician [facility] HospitalComment on above:Order Comment: SOURCE OF SPECIMEN: stool Performed By: #### BMP, DIFF CBC #### [facility] [address] [place] [address] USAEntamoeba histolyticaNot detectedNormalNot DetectedThe Warren General HospitalComment on above:Order Comment: SOURCE OF SPECIMEN: stoolPerformed By: #### BMP, DIFF CBC #### [facility] [address] [place] [address] USAEnteroaggregative E coliNot detectedNormalNot DetectedThe [facility] Physician [facility] HospitalComment on above:Order Comment: SOURCE OF SPECIMEN: stoolPerformed By: #### BMP, DIFF CBC #### [facility] [address] [place] [address] USAEnteropathogenic E coliNot detectedNormalNot DetectedThe Warren General HospitalComment on above:Order Comment: SOURCE OF SPECIMEN: stoolPerformed By: #### BMP, DIFF CBC #### [facility] [address] [place] [address] USAEnterotoxigenic E coliNot detectedNormalNot DetectedThe Warren General HospitalComment on above:Order Comment: SOURCE OF SPECIMEN: stoolPerformed By: #### BMP, DIFF CBC #### [address] [address] USAGiardia lambliaNot detectedNormalNot DetectedThe [facility] HospitalComaspirus iron[facility] hospital on above:Order Comment: SOURCE OF SPECIMEN: stool Performed By: #### BMP, DIFF CBC #### [address] [address] USANorovirus GI/GIINot detectedNormalNot DetectedThe Warren General HospitalComment on above:Order Comment: SOURCE OF SPECIMEN: stoolPerformed By: #### BMP, DIFF CBC #### [address] [address] USAPlesiomonas shigelloidesNot detectedNormalNot DetectedThe Warren General HospitalComment on above:Order Comment: SOURCE OF SPECIMEN: stoolPerformed By: #### BMP, DIFF CBC #### [address] [address] USARotavirus ANot detectedNormalNot DetectedThe Warren General HospitalComment on above:Order Comment: SOURCE OF SPECIMEN: stool Performed By: #### BMP, DIFF CBC #### [facility] [address] [place] [address] USASalmonellaNot detectedNormalNot DetectedThe Warren General HospitalComment on above:Order Comment: SOURCE OF SPECIMEN: stool Performed By: #### BMP, DIFF CBC #### [facility] [address] [place] [address] USASapovirusNot detectedNormalNot DetectedThe Warren General HospitalComment on above:Order Comment: SOURCE OF SPECIMEN: stoolResult Comment: Performed at: - Lab[address], [place], [place] [address] Mathematics Professor: Meli Bishop MD, Phone: [phone] PERFORMED BY: [place] [address] PATHOLOGIST GRAIN DRIER DENILSON COSTA M.D.Performed By: #### BMP, DIFF CBC #### [place] [id number] USTUpeyn-yrite-vwtoofxzr E coliNot detectedNormalNot Detected [facility] Physician [facility] HospitalComment on above:Order Comment: SOURCE OF SPECIMEN: stoolPerformed By: #### BMP, DIFF CBC #### [place] [address] USAShigella/Enteroinvasive E coliNot detectedNormalNot DetectedThe [facility] Physician [facility] HospitalComment on above:Order Comment: SOURCE OF SPECIMEN: stoolPerformed By: #### BMP, DIFF CBC #### [place] [id number] USAVibrioNot detectedNormalNot DetectedThe [facility] Physician [facility] HospitalComment on above:Order Comment: SOURCE OF SPECIMEN: stool Performed By: #### BMP, DIFF CBC #### [place] [id number] USAVibrio choleraeNot detectedNormalNot DetectedThe [facility] Physician [facility] HospitalComment on above:Order Comment: SOURCE OF SPECIMEN: stool Performed By: #### BMP, DIFF CBC #### [place] [address] USAYersinia enterocoliticaNot detectedNormalNot DetectedThe [facility] Physician [facility] HospitalComment on above:Order Comment: SOURCE OF SPECIMEN: stoolPerformed By: #### BMP, DIFF CBC #### [place] [address] USAGlucose Poct Glucometerson 21-47-6229Xwnjddl4Qlw7: Cleaned MeterNormalThe [facility] Physician [facility] HospitalComment on above:Result Comment: PERFORMED BY: [place] [address] PATHOLOGIST GRAIN DRIER DENILSON COSTA M.D.Performed By: #### BMP, DIFF CBC #### [place] [address] USAGlucose [Mass/Vol]109 mg/dLNoCrawley Memorial Hospital Physician GroupComment on above:Result Comment: Random Glucose Reference Range is dependent on time and content of last meal. Glucose of more than 200 mg/dL in a nonstressed, ambulatory subject supports the diagnosis of Diabetes Mellitus.Performed By: #### BMP, DIFF CBC #### [place] [address] USAGlucose [Mass/Vol]81 mg/dLNoCrawley Memorial Hospital Physician GroupComment on above:Result Comment: Random Glucose Reference Range is dependent on time and content of last meal. Glucose of more than 200 mg/dL in a nonstressed, ambulatory subject supports the diagnosis of Diabetes Mellitus. PERFORMED BY: [place] [address] PATHOLOGIST GRAIN DRIER DENILSON COSTA M.D.Performed By: #### BMP, DIFF CBC #### [place] [address] USAGlucose [Mass/Vol]105 mg/dLNoCrawley Memorial Hospital Physician GroupComment on above:Result Comment: Random Glucose Reference Range is dependent on time and content of last meal. Glucose of more than 200 mg/dL in a nonstressed, ambulatory subject supports the diagnosis of Diabetes Mellitus. PERFORMED BY: [place] [address] PATHOLOGIST GRAIN DRIER DENILSON COSTA M.D.Performed By: #### BMP, DIFF CBC #### [place] [address] USALactic Acidon 73-91-7861Wusmfva [Moles/Vol]2.4 mmol/LOff scale high0.5-1.9The [facility] Physician GroupComment on above:Result Comment: Critical Result : Called to and read back by: ANGELA TREJO at: 09/17/2024 10:11:42 by:KB Lactic Acid reference range has been updated to 0.5 ? 1.9 mmol/L and the critical range of 2.0 or greater. PERFORMED BY: [place] [address] PATHOLOGIST GRAIN DRIER DENILSON COSTA M.D.Performed By: #### LACTIC #### [place] [address] USALactic Acid Reflexon 25-67-7391Wyybsv Acid Reflex1.5 mmol/LNormal0.5-1.9The [facility] Physician GroupComment on above:Result Comment: Lactic Acid reference range has been updated to 0.5 ? 1.9 mmol/L and the critical range of 2.0 or greater. PERFORMED BY: [place] [address] PATHOLOGIST GRAIN DRIER DENILSON COSTA M.D.Performed By: #### BMP, DIFF CBC #### [place] [address] USALeukoReduced RBCon 81-59-5622LccqvXjjeqeg RBCTRANSFUSED 09/17/24 1003NoCrawley Memorial Hospital Physician GroupType and Screenon 02-37-2102SOL and Rh group Nom (Bld)Blood group A Rh(D) positiveHalifax Health Medical Center of Port Orange Physician GroupComment on above:Order Comment: Transfuse now? Y Number of units to transfuse now? 1 Transfuse now? Y Number of units to transfuse now? 1Result Comment: PERFORMED BY: [place] [address] PATHOLOGIST GRAIN DRIER DENILSON COSTA M.D.XR chest 1V portableon 19-63-8815GC chest 1V portable [facility] Main [place] [address] [place] [address] XRay Report Signed Patient: Orestes Alvares MR#: [id number] : 1965 Acct:[id number] Age/Sex: 59 / F ADM Date: 09/17/24 Loc: Room: [address] [place] [address] Type: DIS IN Attending Dr: Rosalinda Alfonso [...] Bunch M.D. 09/17/2024 9:12 AM Dictation Location: [facility]16 Transcribed By: [facility] 09/17/24911 Dictated By: Zhen Bunch DO 09/17/24909 Signed By: 09/17/249[address] Physician GroupCT WRIST RT WO CONTon 09-16-2024 CT WRIST RT WO CONTCT WRIST RT WO CONT CT RIGHT WRIST [...] mass abuts the volar cortex of the distalradial shaft without associated bone destruction or periosteal [...] by Antoine Martinez MD on 09/16/2024 11:16 PMNormalProMedica [facility] HEMOGLOBINon 75-83-1324Ssxqzypnio (Bld) [Mass/Vol]6.9 g/dLCritically low12.0 - 16.0 g/dLNOAK HealthcareComment on above:RESULTS CALLED TO SÁNCHEZ RIVERA [facility] @BY Cristela Ewing at 2103 Interpretation and review of laboratory resultsAbnormalNOMS HealthcareCLINISYNC NOMS HealthcareCBC AND AUTO DIFFon 84-55-2368YEIIJTNB BASOPHIL0.0 X10E9/LNormal 0.0-0.2ProMedica Carney HospitalComment on above:Performed By: #### CBCA CMP, , 2776-04 ####[facility] ([id number])[address], [address], [place] [address]WKENGRCZ NEUTROPHIL7.3 X10E9/LHigh1.5-6.6[facility] HospitalComment on above:Performed By: #### CBCA, CMP, , 2776-04 ####[facility] ([id number])[address], [address], [place] [address]Lfpgfdqoe/100 WBC (Bld)0.6 %NormalAdams County Regional Medical Center HospitalComment on above:Performed By: #### CBCA, CMP, , 2776-04 ####[facility] ([id number])[address], [address], [place] [address]Tocqrcupvqg (Bld) [#/Vol]0.0 10*3/uLNormal0.0-0.4Pro[facility] Hospital HospitalComment on above: Performed By: #### CBCA, CMP, , 2776-04 ####[facility] ([id number])[address], [address], [place] [address]Qjfzmcpxxwk/100 WBC (Bld) 0.5 %NormalProMedica Lynn HospitalComment on above:Performed By: #### CBCA, CMP, , 2776-04 ####[facility] ([id number])[address], [address], [place] [address]Mzpfufogwzw distribution width (RBC) [Ratio]18.3 %High11.5-15.0ProMedica Lynn HospitalComment on above:Performed By: #### CBCA, CMP, , 2776-04 ####[facility] ([id number])[address], [address], [place] [address]Zywztxlyji (Bld) [Volume fraction]23.7 %Low 35-47ProMedica Lynn HospitalComment on above:Performed By: #### CBCA, CMP, , 2776-04 ####[facility] ([id number])[address], [address], [place] [address]Clmthuwalu (Bld) [Mass/Vol]7.8 g/dLLow11.7-15.5 [facility] Lynn HospitalComment on above:Performed By: #### CBCA, CMP, , 2776-04 ####[facility] ([id number])[address] [address], [place] [address]Sgrytdrkeue (Bld) [#/Vol]0.6 10*3/uLLow1.0-3.5ProMedica Lynn HospitalComment on above:Performed By: #### CBCA, CMP, , 2776-04 ####[facility] ([id number])[address] [address], [place] [address]Qzonltsftqr/100 WBC (Bld)7.7 %NormalProMedica Lynn HospitalComment on above:Performed By: #### CBCA, CMP, , 2776-04 ####[facility] ([id number])[address], [address], [place] [address]CDS (RBC) [Entitic mass]31.8 dwRsbwcy50-20VdlKtiiyi Lynn HospitalComment on above:Performed By: #### CBCA, CMP, , 2776-04 ####[facility] ([id number])[address], [address], [place] [address]EADS (RBC) [Mass/Vol]32.8 g/uOSfunpc71-51ZvsBhahfj Lynn HospitalComment on above:Performed By: #### CBCA, CMP, , 2776-04 ####[facility] ([id number])[address], [address], [place] [address]GGZ (RBC) [Entitic vol]97 tFQmjdwu51-762 [facility] Lynn HospitalComment on above:Performed By: #### CBCA, CMP, , 2776-04 ####[facility] ([id number])[address], [address] [place] [address]Ibkzsibaz (Bld) [#/Vol]0.1 10*3/uLNormal0-0.9Pro[facility]ica Lynn HospitalComment on above:Performed By: #### CBCA, CMP, , 2776-04 ####[facility] ([id number])[address], [address], [place] [address]Wwklwalqt/100 WBC (Bld)1.2 %NormalProMedica Lynn HospitalComment on above:Performed By: #### CBCA, CMP, , 2776-04 ####[facility] ([id number])[address], [address], [place] [address]Mxpndfqomyj/100 WBC (Bld)90.0 %NormalProMedica Lynn HospitalComment on above:Performed By: #### CBCA, CMP, , 2776-04 ####[facility] ([id number])[address], [address], [place] [address]Dqhfjaik mean volume (Bld) [Entitic vol]7.2 fLNormal7-12ProMedica Carney HospitalComment on above:Performed By: #### NAMITA CMP, , 2776-04 ####[facility] ([id number])[address], [address], [place] [address]Hislihsij (Bld) [#/Vol]330 10*3/eUTkuapj892-617 [facility]ica [facility]ney HospitalComment on above:Performed By: #### RENA BREAUX, , 2776-04 ####[facility] ([id number])[address] [address] [place] [address]EVR COUNT2.45 X10E12/LLow3.80-5.20[facility] Hospital Comment on above:Performed By: #### NAMITA CMP, , 2776-04 ####[facility] ([id number])[address] [address], [place] [address]SAX (Bld) [#/Vol]8.1 10*3/uLNormal4.0-11.0[facility] HospitalComment on above: Performed By: #### NAMITA CMP, , 2776-04 ####[facility] ([id number])[address], [address], [place] [address]UCYTOCJNIYAOX METABOLIC PANELon 89-30-1582Lezbufg [Mass/Vol]4.2 g/dLNormal3.2-5.3ProMedWooster Community Hospital HospitalComment on above:Performed By: #### NAMITA, CMP, , 2776-04 ####[facility] ([id number])[address] [address], [place] [address]WNM [Catalytic activity/Vol]60 U/LTotrow25-826YyqShyrrv [facility] Comment on above:Performed By: #### RENA BREAUX, , 2776-04 ####[facility] ([id number])[address], [address], [place] [address]JWH [Catalytic activity/Vol]6 U/LNormal0-31ProMedica [facility] HospitalComment on above:Performed By: #### NAMITA CMP, , 2776-04 ####[facility] ([id number])[address], [address], [place] [address]Baunb gap [Moles/Vol]12 mmol/LNormal5-15[facility] HospitalComment on above:Performed By: #### RENA BREAUX, , 2776-04 ####[facility] ([id number])[address], [address], [place] [address]XPF [Catalytic activity/Vol]9 U/LNormal0-41 [facility] HospitalComment on above:Performed By: #### RENA BREAUX, , 2776-04 ####[facility] ([id number])[address], [address], [place] [address]Xanvuxthf [Mass/Vol]1.2 mg/dLNormal0.3-1.2ProMedWooster [facility] Hospital HospitalComment on above:Performed By: #### NAMITA, CMP, , 2776-04 ####[facility] ([id number])[address], [address], [place] [address]Jhakuga [Mass/Vol]9.8 mg/dLNormal8.5-10.5ProMedWooster Community Hospital HospitalComment on above:Performed By: #### NAMITA CMP, , 2776-04 ####[facility] ([id number])[address], [address], [place] [address]Ozfwgyui [Moles/Vol]100 mmol/JZorflf05-634HwiJayovx Carney HospitalComment on above: Performed By: #### RENA BREAUX, , 2776-04 ####[facility] ([id number])[address], [address], [place] [address]RS4 [Moles/Vol]24 mmol/L Hjqngh54-82DtvJsxszn Car[facility] HospitalComment on above:Performed By: #### RENA BREAUX, , 2776-04 ####[facility] ([id number])[address], [address], [place] [address]Vginohhpcl [Mass/Vol]2.02 mg/dLHigh0.40-1.00 [facility] HospitalComment on above:Result Comment: METHOD TRACEABLE TO IDMS STANDARDPerformed By: #### RENA BREAUX, , 2776-04 ####[facility] ([id number])[address] [address], [place] [address]QFF/1.73 sq M.predicted among non-blacks MDRD (S/P/Bld) [Vol rate/Area]28 mL/min/{1.73_m2} Low>59ProMedica Carney HospitalComment on above:Result Comment: Reported eGFR is based on theCKD-EPI 2020 equation that doesnot use a race coefficient.Performed By: #### RENA BREAUX, , 2776-04 ####[facility] ([id number])[address], [address], [place] [address]Wwojoer [Mass/Vol]131 mg/dL Phuj77-31ItwAyyifu [facility]ney HospitalComment on above:Performed By: #### RENA BREAUX, , 2776-04 ####[facility] ([id number])[address] [address], [place] [address]Ktkxkkihm [Moles/Vol]4.5 mmol/LNormal3.5-5.0ProLouis Stokes Cleveland Va Medical Centerca Carney HospitalComment on above:Performed By: #### RENA BREAUX, , 2776-04 ####[facility] ([id number])[address], [address] [place] [address]Twrvlub [Mass/Vol]7.4 g/dLNormal6.0-8.0ProLouis Stokes Cleveland Va Medical Centerca Carney HospitalComment on above:Performed By: #### RENA BREAUX, , 2776-04 ####[facility] ([id number])[address], [address] [place] [address]Lgwyxx [Moles/Vol]136 mmol/MFpnejo791-248BarYkwmqu [place] HospitalComment on above: Performed By: #### RENA BREAUX, , 2776-04 ####[facility] ([id number])[address], [address] [place] [address]Zrtt nitrogen [Mass/Vol]32 mg/dLHigh5-27[facility] HospitalComment on above:Performed By: #### RENA BREAUX, , 2776-04 ####[facility] ([id number])[address], [address] [place] [address]MI [place] DIAL/CENT LINE > 5 YRSon 65-05-8243EA [place] DIAL/CENT LINE > 5 YRSNormalProRegency Hospital Company MAGNESIUMon 05-22-4443Mvghyftav [Mass/Vol]2.1 mg/dLNormal1.8-2.6ProLouis Stokes Cleveland Va Medical Centerca Carney HospitalComment on above:Performed By: #### RENA BREAUX, , 2776-04 ####[facility] ([id number])[address], [address] [place] [address]HANZFCXNQQid 07-94-2128Yzepagelu [Mass/Vol]3.6 mg/dLNormal2.4-4.9ProMedica Lynn HospitalComment on above:Performed By: #### CBCA, CMP, [address]-8, 2777-1 ####[facility] ([id number])[address] [facility], [place] [address]HT CHEST 1 VWon 97-91-1571YA CHEST 1 VWWright Memorial HospitalalProLouis Stokes Cleveland Va Medical Centerca Carney HospitalAFB CULTURE(CONCENTRATED)on 42-30-4782Llqglhtjcrdsp sp identified Org specific cx Nom (Unsp spec)AFB SMEAR NO ACID FAST BACILLI (CONCENTRATED SMEAR) CULTURE RESULTS NO ACID FAST BACILLI ISOLATED IN 8 WEEKSNormalProLouis Stokes Cleveland Va Medical Centerca Carney HospitalComment on above:Performed By: #### 543-9 ####[facility] ([id number])[address], [address], [place] [address]XRLDRBTL BLOOD GASon 32-97-0665SLOHE'S TESTNormalProLouis Stokes Cleveland Va Medical Centerca Carney HospitalComment on above:Performed By: #### ABG ####[facility] ([id number])[address] [place], [place] [address]TSGD,DEFICIT4.0 MMOL/LHigh0.0-2.0ProLouis Stokes Cleveland Va Medical Centerca Carney HospitalComment on above:Performed By: #### ABG ####[facility] ([id number])[address] [place], [place] [address]Hwlg imyrjnwunww78.6 [degF]Bjtvhv07.0ProMedica Carney HospitalComment on above:Performed By: #### ABG ####[facility] ([id number])[address] [place], [place] [address]MBD5 (Bld) [Moles/Vol]23.2 mmol/L Ulbnzu50-23GpnAkgojr Carney HospitalComment on above:Performed By: #### ABG ####[facility] ([id number])[address] [place] [address] INSP. O2 CONC.28 %NormalProMedica Lynn HospitalComment on above:Performed By: #### ABG ####[facility] ([id number])[address] [place], [place] [address]Bjgoex (Bld) [Partial pressure]66 mm[Hg]Qay80-006YtcHlfsktRegency Hospital Company Comment on above:Performed By: #### ABG ####[facility] ([id number])[address] [place], [place] [address]Tfdjfu saturation in Blood89.0 %Low >90ProRegency Hospital CompanyComment on above:Performed By: #### ABG ####[facility] ([id number])[address] [place], [place] [address]NPEKRG SOURCE NPPVNoalOhioHealth Doctors HospitalComment on above:Performed By: #### ABG ####[facility] ([id number])[address] [place], [place] [address]NRF8 52.7 GTUQCzwb03-34QbvMacvjh [place] HospitalComment on above:Performed By: #### ABG ####[facility] ([id number])[address] [place] [address] pH (Bld)7.252 [pH]Low7.350-7.450ProRegency Hospital CompanyComment on above: Performed By: #### ABG ####[facility] ([id number])[address] [place], [place] [address]TSPGIY SITERRadNormalProRegency Hospital CompanyComment on above:Performed By: #### ABG ####[facility] ([id number])[address] [facility], [place] [address]CAJQQH TYPEARTERIALNormalAdams County Regional Medical Center Hospital Comment on above:Performed By: #### ABG ####[facility] ([id number])[address] [facility], [place] [address]WK CELL CT AND DIFFon 07-02-2024 BODY FLUID COMMENT Interpretation--------NormalProLouis Stokes Cleveland Va Medical Centerca [facility] Memorial HospitalComment on above:Result Comment: Reference values for this fluid type areundefined, as fluid accumulation isconsidered abnormal.Assorted lining cells present.Corrected on 07/03 AT 0544: Previously reported as Interpretation Reference values for this fluid type are undefined, as fluid accumulation is considered abnormal.Performed By: #### BFCT ####[facility] ([id number])[address], [address], [place] [address]VZNJB CLARITYHAZYNormal Pro[facility]ica [facility] Memorial HospitalComment on above:Performed By: #### BFCT ####[facility] ([id number])[address], [address], [place] [address]DVLYC COLORYELLOWNormalProRegency Hospital CompanyComment on above:Performed By: #### BFCT ####[facility] ([id number])[address], [address] [place], [place] [address]XMUKK LYMPHOCYTE3 %NormalProRegency Hospital CompanyComment on above:Performed By: #### BFCT ####[facility] ([id number])[address], [address], [place] [address]BEICA LRPHEPAABDB34 %NormalProRegency Hospital CompanyComment on above:Performed By: #### BFCT ####[facility] ([id number])[address], [address], [place] [address]FQCLT RBC CT220 /uL NormalProLouis Stokes Cleveland Va Medical Centerca Carney HospitalComment on above:Performed By: #### BFCT ####[facility] ([id number])[address], [address], [place] [address]ICEGB SPECIMEN TYPEBRONCHOALVEOLAR LAVAGENormalOhioHealth Doctors Hospital Comment on above:Result Comment: LEFTLUNG, LOWER LOBEPerformed By: #### BFCT ####[facility] ([id number])[address], [address], [place] [address]OCYBUYVVAWP53 %NormalProRegency Hospital CompanyComment on above:Performed By: #### BFCT ####[facility] ([id number])[address], [address], [place] [address]BVUQIAEOD CELL CT76 /uLNormalProRegency Hospital Company Comment on above:Performed By: #### BFCT ####[facility] ([id number])[address], [address] [place] [address]YVH AND AUTO DIFFon 32-55-2400FILQNQQC BASOPHIL0.0 X10E9/LNormal0.0-0.2PKettering Health Behavioral Medical Center Comment on above:Performed By: #### CBCA, CMP, , 2776-04 ####[facility] ([id number])[address], [address] [address] ABSOLUTE NEUTROPHIL4.2 X10E9/LNormal1.5-6.6ProRegency Hospital CompanyComment on above:Performed By: #### CBCA, CMP, , 2776-04 ####[facility] ([id number])[address], [address], [place] [address]Ehwbgqjqh/100 WBC (Bld)0.6 %NormalProGenesis Hospital HospitalComment on above:Performed By: #### CBCA, CMP, , 2776-04 ####[facility] ([id number])[address], [place] [address]Mstbiybhxtz (Bld) [#/Vol]0.9 10*3/uLHigh 0.0-0.4Pro[facility] CompanyComment on above:Performed By: #### CBCA, CMP, , 2776-04 ####[facility] ([id number])[address], [address], [place] [address]Pcpgqkhpwss/100 WBC (Bld)12.5 %NormalProGenesis Hospital HospitalComment on above:Performed By: #### CBCChristinao CMP, , 2776-04 ####[facility] ([id number])[address], [address], [place] [address]Ojygjxldfhn distribution width (RBC) [Ratio]17.8 %High11.5-15.0[facility] HospitalComment on above:Performed By: #### CBCChristiano CMP, , 2776-04 ####[facility] ([id number])[address], [place] [address]Khtrwiquoc (Bld) [Volume fraction]23.1 %Jtk17-11IbsUnijmz [facility] Comment on above:Performed By: #### CBCChristiano CMP, , 2776-04 ####[facility] ([id number])[address], [address] [address] Hemoglobin (Bld) [Mass/Vol]7.6 g/dLLow11.7-15.5PFirelands Regional Medical Center HospitalComment on above:Performed By: #### CBCChristiano CMP, , 2776-04 ####[facility] ([id number])[address] [address] [place] [address] 134[address]Jqmzjtbevtq (Bld) [#/Vol]1.2 10*3/uLNormal1.0-3.5PFirelands Regional Medical Center HospitalComment on above: Performed By: #### CBCA, CMP, , 2776-04 ####[facility] ([id number])[address] [address], [place] [address]Ycyfqgrhjda/100 WBC (Bld) 16.4 %NormalProGenesis Hospital HospitalComment on above:Performed By: #### CBCA, CMP, , 2776-04 ####[facility] ([id number])[address], [address], [place] [address]PPP (RBC) [Entitic mass]31.4 bpZzrknn56-34 [facility] HospitalComment on above:Performed By: #### CBCA, CMP, , 2776-04 ####[facility] ([id number])[address], [address], [place] [address]KXWW (RBC) [Mass/Vol]32.8 g/eXVpnzsa19-92JyrPkrhmr Lynn HospitalComment on above:Performed By: #### CBCChristiano, CMP, , 2776-04 ####[facility] ([id number])[address], [address] [place] [address] 24645TLY (RBC) [Entitic vol]96 qFPwpigt07-404GmxCozbhg Lynn HospitalComment on above:Performed By: #### CBCA, CMP, , 2776-04 ####[facility] ([id number])[address], [address] [place] [address] 87365Wwfoynazt (Bld) [#/Vol]0.7 10*3/uLNormal0-0.9[facility] HospitalComment on above:Performed By: #### CBCA, CMP, , 2776-04 ####[facility] ([id number])[address], [address], [place] [address]Iqqsfbbyz/100 WBC (Bld)10.4 %NormalProMedica Lynn HospitalComment on above:Performed By: #### CBCA, CMP, , 2776-04 ####[facility] ([id number])[address], [address], [place] [address]Lvnzvwozxhv/100 WBC (Bld)60.1 %NormalProMedica Lynn HospitalComment on above:Performed By: #### CBCChristiano, CMP, , 2776-04 ####[facility] ([id number])[address], [address], [place] [address]Afukvesz mean volume (Bld) [Entitic vol]7.0 fLNormal7-12[facility] HospitalComment on above:Performed By: #### CBCA, CMP, , 2776-04 ####[facility] ([id number])[address], [address], [place] [address]Jizflotob (Bld) [#/Vol]376 10*3/lSPmworw654-436VbfCnqzzu [facility] Comment on above:Performed By: #### NAMITA, CMP, , 2776-04 ####[facility] ([id number])[address], [address] [place] [address]KWN COUNT2.42 X10E12/LLow3.80-5.20ProLouis Stokes [facility] Va Medical Centerca Carney HospitalComment on above: Performed By: #### NAMITA, CMP, , 2776-04 ####[facility] ([id number])[address], [address] [place] [address] 07[address]KPJ (Bld) [#/Vol]7.1 10*3/uLNormal4.0-11.0ProLouis Stokes [facility] Va Medical Centerca Carney HospitalComment on above:Performed By: #### CBCA, CMP, , 2776-04 ####[facility] ([id number])[address], [address], [place] [address]OPWYGSUDWUDBP METABOLIC PANELon 25-10-9483Szfwkgo [Mass/Vol]3.7 g/dLNormal3.2-5.3[facility] HospitalComment on above:Performed By: #### CBCA, CMP, , 2776-04 ####[facility] ([id number])[address], [address], [place] [address]IWB [Catalytic activity/Vol]56 U/AUianml98-236KvhCokrxs [facility] Comment on above:Performed By: #### RENA BREAUX, , 2776-04 ####[facility] ([id number])[address], [address], [place] [address]BST [Catalytic activity/Vol]5 U/LNormal0-31[facility] HospitalComment on above:Performed By: #### RENA BREAUX, , 2776-04 ####[facility] ([id number])[address], [address], [place] [address]Ygrqi gap [Moles/Vol]14 mmol/LNormal5-15[facility] HospitalComment on above:Performed By: #### NAMITA CMP, , 2776-04 ####[facility] ([id number])[address], [address], [place] [address]DAJ [Catalytic activity/Vol]8 U/LNormal0-41 [facility] HospitalComment on above:Performed By: #### NAMITA, CMP, , 2776-04 ####[facility] ([id number])[address], [address], [place] [address]Loickrzjp [Mass/Vol]1.0 mg/dLNormal0.3-1.2Pro[facility] HospitalComment on above:Performed By: #### NAMITA, CMP, , 2776-04 ####[facility] ([id number])[address], [address], [place] [address]Mltehws [Mass/Vol]10.5 mg/dLNormal8.5-10.5ProMedW[facility]oster [facility] HospitalComment on above:Performed By: #### NAMITA, CMP, , 2776-04 ####[facility] ([id number])[address], [address], [place] [address]Oagxwkoe [Moles/Vol]105 mmol/UOirbrz30-629LwkMkbcmq Carney HospitalComment on above: Performed By: #### RENA BREAUX, , 2776-04 ####[facility] ([id number])[address], [address] [place] [address]AZ7 [Moles/Vol]25 mmol/L Enpsji49-23ZmiSeqxzc [facility] HospitalComment on above:Performed By: #### RENA BREAUX, , 2776-04 ####[facility] ([id number])[address], [address] [place] [address]Dbjlokideb [Mass/Vol]4.12 mg/dLHigh0.40-1.00 [facility] HospitalComment on above:Result Comment: METHOD TRACEABLE TO IDMS STANDARDPerformed By: #### RENA BREAUX, , 2776-04 ####[facility] ([id number])[address] [address], [place] [address]EHD/1.73 sq M.predicted among non-blacks MDRD (S/P/Bld) [Vol rate/Area]12 mL/min/{1.73_m2} Low>59[facility] HospitalComment on above:Result Comment: Reported eGFR is based on theCKD-EPI 2020 equation that doesnot use a race coefficient.Performed By: #### RENA BREAUX, , 2776-04 ####[facility] ([id number])[address], [address] [place] [address]Frfvbni [Mass/Vol]92 mg/dL Yfxkmp85-00BuvRlbstn [facility]ney HospitalComment on above:Performed By: #### RENA BREAUX, , 2776-04 ####[facility] ([id number])[address], [address], [place] [address]Lwsoraicx [Moles/Vol]3.8 mmol/LNormal3.5-5.0 [facility] HospitalComment on above:Performed By: #### NAMITA, CMP, 48338-4, 2777-1 ####[facility] ([id number])[address], [address], [place] [address]Zmkqisi [Mass/Vol]6.7 g/dLNormal6.0-8.0[facility] HospitalComment on above:Performed By: #### CBCChristiano, CMP, 81709-7, 2777-1 ####[facility] ([id number])[address], [address] [place] [address] 450[address]Ulqejy [Moles/Vol]144 mmol/MFtfnaf734-384VmtGxsdcw [facility] HospitalComment on above:Performed By: #### NAMITA, CMP, , 2777-1 ####[facility] ([id number])[address], [address] [place] [address], [place] [address]Immr nitrogen [Mass/Vol]80 mg/dLHigh5-27[facility] HospitalComment on above:Performed By: #### CBCA, CMP, , 2777-1 ####[facility] ([id number])[address], [address] [place] [address]Ytdixxhnwp 07-02-2024 CytologyNormalProGenesis Hospital HospitalComment on above:Result Comment: [facility] [address] [place] [address] Cytology ConsultationPatient Name:OERSTES ALVARES:1965 (Age: 59)Gender:FTaken:07/02/2024Reported:07/03/2024 16:31Physician(s):Quintin Forman M.D. ([phone])Copy To: Rec. #:[id number]: #[id number] DiagnosisLung, left lower lobe, bronchoalveolar lavage:No malignant cells identified.ao07/03/2024Interpretation performed at [employer] [facility], [address] [place], [place] [address], License number: [id number].Electronically Signed Out By Earl Boone MDClinical HistoryMucus plug in respiratory tract [T17.998A]. Acute hypoxic respiratory failure ([facility]) [J96.01].Gross DescriptionReceived was 5ml of clear colorless fluid unfixed labeled as [place], lung, left lower lobe, BAL . CytoLyt added in lab. Unable to obtain cellblock, ThinPrep made.Source of Specimen Lung, left lower lobe, bronchoalveolar lavage Non HEALTH CARE FACILITIES INSPECTOR ThinPrepFee Code(s):1; 96294DCPZDS CULTUREon 73-33-3703Xldwkj identified Cx Nom (Unsp spec)FUNGAL SMEAR NO FUNGAL ELEMENTS SEEN ON DIRECT SMEAR CULTURE RESULTS MABLE ALBICANSAbnormalProRegency Hospital CompanyComment on above:Performed By: #### 580-1 ####[facility] ([id number])[address] [place] [address]OHZVU RESPIRATORY CULTUREon 05-72-3870Wgkkhlwf identified Respiratory culture Nom (Sput)SusceptibleProGenesis Hospital HospitalComment on above:Performed By: #### 624-7 ####[facility] ([id number])[address] [place] [address]IQYTYXXSHuk 60-79-1125Oxgrrkuhb [Mass/Vol] 1.9 mg/dLNormal1.8-2.6ProRegency Hospital CompanyComment on above:Performed By: #### CBCA, CMP, 92387-7, 2777-1 ####[facility] ([id number])[address] [place] [address]Utmkhshsu Ionized ISE (Bld) [Moles/Vol]on 89-29-6813Adwqqkhbk [Moles/Vol]0.71 mmol/LNormal0.45-0.74 [facility] HospitalComment on above:Result Comment: NEW REFERENCE RANGE Performed By: #### 23626-9 ####[facility] ([id number])[address], [address] [place] [address]GLYSZLEGRGkd 42-62-1269Nlxvjmmmd [Mass/Vol] 5.2 mg/dLHigh2.4-4.9[facility] HospitalComment on above:Performed By: #### CBCA, CMP, 73752-9, 2777-1 ####[facility] ([id number])[address], [address] [place] [address]ZHFMOBFILif 29-10-6621Laebkumop [Moles/Vol] 4.2 mmol/LNormal3.5-5.0[facility] HospitalComment on above:Performed By: #### 2823-3 ####[facility] ([id number])[address], [address] [place] [address] 68[address]WEIKUMV AND INRon 84-93-3154QZH Coag (PPP) [Relative time]1.2 {INR}Normal0.9-1.2PKettering Health Behavioral Medical CenterComment on above:Performed By: #### PINR ####[facility] ([id number])[address], [address] [place] [address] 26958WX Coag (PPP) [Time]13.5 sHigh9.8-13.2PFirelands Regional Medical Center HospitalComment on above:Performed By: #### PINR ####[facility] ([id number])[address], [address] [place] [address] 73440SE CHEST 1 VWon 59-88-1571IO CHEST 1 VWNormalProRegency Hospital CompanyXR CHEST 1 VWNormal ProMRegency Hospital Cleveland EastCBC AND AUTO DIFFon 63-55-2822HTFUTMGW BASOPHIL0.1 X10E9/LNormal0.0-0.2[facility] HospitalComment on above:Performed By: #### CBCChristiano, CMP, , 2776-04 ####[facility] ([id number])[address], [address], [place] [address]IVXBPCDJ NEUTROPHIL3.9 X10E9/LNormal1.5-6.6 [facility] HospitalComment on above:Performed By: #### CBCChristiano, CMP, , 2776-04 ####[facility] ([id number])[address], [address] [place] [address]Axvlppyka/100 WBC (Bld)2.0 %NormalProGenesis Hospital Hospital Comment on above:Performed By: #### CBCChristiano, CMP, , 2776-04 ####[facility] ([id number])[address], [address] [place] [address] Eosinophils (Bld) [#/Vol]1.0 10*3/uLHigh0.0-0.4[facility] HospitalComment on above:Performed By: #### CBCA, CMP, , 2776-04 ####[facility] ([id number])[address], [address] [place] [address] 14349Qtyutggkefp/100 WBC (Bld)14.0 %NormalProGenesis Hospital HospitalComment on above:Performed By: #### CBCA, CMP, , 2776-04 ####[facility] ([id number])[address] [address] [place] [address] 47[address]Xqhqeffrmhh distribution width (RBC) [Ratio]17.8 %High11.5-15.0[facility] HospitalComment on above: Performed By: #### CBCA, CMP, , 2776-04 ####[facility] ([id number])[address], [address] [place] [place] [address]Djfuiwrirc (Bld) [Volume fraction]23.7 %Fvv56-95HwkNsdalc Carney HospitalComment on above:Performed By: #### CBCA, CMP, , 2776-04 ####[facility] ([id number])[address], [address] [place], [place] [address]Juaoibszhe (Bld) [Mass/Vol] 7.7 g/dLLow11.7-15.5[facility] HospitalComment on above:Performed By: #### CBCA, CMP, , 2776-04 ####[facility] ([id number])[address], [address], [place] [address]Cybutxbnqir (Bld) [#/Vol]1.4 10*3/uLNormal 1.0-3.5ProMedWooster [facility] Hospital HospitalComment on above:Performed By: #### CBCA, CMP, , 2776-04 ####[facility] ([id number])[address], [address] [place] [address]Gvqvgvtdmxd/100 WBC (Bld)19.6 %NormalProLouis Stokes Cleveland Va Medical Centerca Carney HospitalComment on above:Performed By: #### CBCA, CMP, , 2776-04 ####[facility] ([id number])[address], [address], [place] [address]VZA (RBC) [Entitic mass]31.1 ynGbxhid65-83WgpNvbgar Lynn HospitalComment on above:Performed By: #### CBCA, CMP, , 2776-04 ####[facility] ([id number])[address], [address], [place] [address]CTPI (RBC) [Mass/Vol]32.5 g/nTTzkluz15-52AasLcrfjt Lynn HospitalComment on above: Performed By: #### CBCA, CMP, , 2776-04 ####[facility] ([id number])[address], [address] [place] [address]QCF (RBC) [Entitic vol]96 oVBjfuhd66-077SzwGupmkg Carney HospitalComment on above:Performed By: #### CBCA, CMP, , 2776-04 ####[facility] ([id number])[address], [address], [place] [address]Rffmzwfvb (Bld) [#/Vol]0.6 10*3/uLNormal0-0.9 [facility] HospitalComment on above:Performed By: #### CBCA, CMP, , 2776-04 ####[facility] ([id number])[address], [address] [place] [address]Qcnacnyrb/100 WBC (Bld)8.8 %NormalProLouis Stokes Cleveland Va Medical Centerca [facility] Hospital Comment on above:Performed By: #### CBCA, CMP, , 2776-04 ####[facility] ([id number])[address], [address] [address] Neutrophils/100 WBC (Bld)55.6 %NormalProMedica Carney HospitalComment on above: Performed By: #### CBCA, CMP, , 2776-04 ####[facility] ([id number])[address], [address], [place] [address]Crnqvtkv mean volume (Bld) [Entitic vol]6.9 fLLow7-12[facility] HospitalComment on above:Performed By: #### CBCA, CMP, , 2776-04 ####[facility] ([id number])[address], [address], [place] [address]Uogqkliyi (Bld) [#/Vol]417 10*3/tUKvzsel136-234KvvHtdrmw Lynn HospitalComment on above:Performed By: #### CBCChristiano, CMP, , 2776-04 ####[facility] ([id number])[address], [address] [place] [address]GKQ COUNT2.47 X10E12/LLow3.80-5.20[facility] HospitalComment on above:Performed By: #### CBCA, CMP, , 2776-04 ####[facility] ([id number])[address], [address] [place] [address] 21503JFJ (Bld) [#/Vol]7.1 10*3/uLNormal4.0-11.0ProLouis Stokes Cleveland Va Medical Centerca Lynn HospitalComment on above:Performed By: #### NAMITA, CMP, , 2776-04 ####[facility] ([id number])[address], [address] [place] [address] 22138LQESPJHIOUWIL METABOLIC PANELon 82-30-4725Okmmygk [Mass/Vol]3.7 g/dLNormal3.2-5.3[facility] HospitalComment on above:Performed By: #### NAMITA, CMP, , 2776-04 ####[facility] ([id number])[address], [address] [place] [address] 21536MCY [Catalytic activity/Vol]61 U/OTwcvsp22-089IxoHrmsnj [facility] Comment on above:Performed By: #### CBCA, CMP, , 2776-04 ####[facility] ([id number])[address] [address] [place] [address] 77[address]VRM [Catalytic activity/Vol]4 U/LNormal0-31ProMedWooster [facility] Hospital HospitalComment on above:Performed By: #### CBCA, CMP, , 2776-04 ####[facility] ([id number])[address], [address], [place] [address]Afvxj gap [Moles/Vol]16 mmol/LHigh5-15[facility] HospitalComment on above:Performed By: #### RENA BREAUX, , 2776-04 ####[facility] ([id number])[address], [address], [place] [address]WGF [Catalytic activity/Vol]10 U/LNormal0-41 [facility] HospitalComment on above:Performed By: #### RENA BREAUX, , 2776-04 ####[facility] ([id number])[address], [address], [place] [address]Bwhswjaae [Mass/Vol]1.1 mg/dLNormal0.3-1.2[facility] HospitalComment on above:Performed By: #### RENA BREAUX, , 2776-04 ####[facility] ([id number])[address], [address], [place] [address]Dfajrtg [Mass/Vol]10.6 mg/dLHigh8.5-10.5ProMedgrove hill memorial hospital Lynn HospitalComment on above:Performed By: #### RENA BREAUX, , 2776-04 ####[facility] ([id number])[address], [address], [place] [address]Klranmuy [Moles/Vol]106 mmol/IJuwpwr16-473JvgNalhdw Lynn HospitalComment on above: Performed By: #### RENA BREAUX, , 2776-04 ####[facility] ([id number])[address], [address], [place] [address]NF3 [Moles/Vol]22 mmol/L Fokxax54-00EyrPzgnqi Lynn HospitalComment on above:Performed By: #### NAMITA CMP, 2776-04 ####[facility] ([id number])[address], [place] [address]Ckrpxqzzxn [Mass/Vol]3.99 mg/dLHigh0.40-1.00 ProMUniversity [facility] HospitalComment on above:Result Comment: METHOD TRACEABLE TO IDMS STANDARDPerformed By: #### RENA BREAUX, , 2776-04 ####[facility] ([id number])[address] [address], [place] [address]XMV/1.73 sq M.predicted among non-blacks MDRD (S/P/Bld) [Vol rate/Area]12 mL/min/{1.73_m2} Low>59Pro[facility] HospitalComment on above:Result Comment: Reported eGFR is based on theCKD-EPI 2020 equation that doesnot use a race coefficient.Performed By: #### RENA BREAUX, , 2776-04 ####[facility] ([id number])[address] [address] [place] [address]Ytnlfcm [Mass/Vol]76 mg/dL Ugjxzz57-17TcaZnnsgb [place] HospitalComment on above:Performed By: #### RENA BREAUX, 2776-04 ####[facility] ([id number])[address], [address] [place] [address]Tnejsujwa [Moles/Vol]4.0 mmol/LNormal3.5-5.0 ProMUniversity [facility]als [facility] HospitalComment on above:Performed By: #### RENA BREAUX, 2776-04 ####[facility] ([id number])[address] [address]Onkjlrr [Mass/Vol]6.9 g/dLNormal6.0-8.0ProLouis Stokes Cleveland Va Medical Centerca Carney HospitalComment on above:Performed By: #### RENA BREAUX, 2776-04 ####[facility] ([id number])[address] [address] [place] [address]Drclko [Moles/Vol]144 mmol/BRjgzrz700-640NwvCxigxr [place] HospitalComment on above:Performed By: #### RENA BREAUX, , 2776-04 ####[facility] ([id number])[address], [address] [place] [address]Yvcw nitrogen [Mass/Vol]83 mg/dLHigh5-27[facility] HospitalComment on above:Performed By: #### RENA BREAUX, , 2776-04 ####[facility] ([id number])[address] [address]Khwnfjg.ionized (Bld) [Mass/Vol]on 32-51-4633ZJDBNWI CALCIUM5.6 mg/dLHigh4.5-5.3[facility] HospitalComment on above:Performed By: #### 98309-1, 17597-2 ####[facility] ([id number])[address] [address]LK SWALLOW MOTILITY FUNCTIONon 81-66-4859HL SWALLOW MOTILITY FUNCTIONNormalProRegency Hospital CompanyMAGNESIUMon 08-89-0240Tfrgnurfn [Mass/Vol]2.1 mg/dLNormal1.8-2.6 [facility] HospitalComment on above:Performed By: #### RENA BREAUX, , 2776-04 ####[facility] ([id number])[address] [address]Piqbaxnye Ionized ISE (Bld) [Moles/Vol]on 18-40-5381Rztkcspgg [Moles/Vol]0.48 mmol/LNormal0.45-0.74[facility] HospitalComment on above: Result Comment: NEW REFERENCE RANGEPerformed By: #### 89413-1, 75975-5 ####[facility] ([id number])[address], [place] [address]WDBIMJCQTWcn 06-27-6309Ebfpcefpw [Mass/Vol]5.3 mg/dLHigh2.4-4.9[facility] HospitalComment on above:Performed By: #### CBCA, CMP, , 2776-04 ####[facility] ([id number])[address], [address] [place] [address] 86[address]GD CHEST 1 VWon 67-25-4387CV CHEST 1 VWNormalProRegency Hospital CompanyCBC AND AUTO DIFFon 01-15-2080RDEMMQBR BASOPHIL0.1 X10E9/LNormal0.0-0.2ProMedOhioHealth Marion General HospitalComment on above:Performed By: #### CBCA, CMP, , 2776-04 ####[facility] ([id number])[address], [address] [place] [address] 55254FZAGMFBT NEUTROPHIL3.9 X10E9/LNormal1.5-6.6[facility] Comment on above:Performed By: #### CBCA, CMP, , 2776-04 ####[facility] ([id number])[address], [address] [place] [address] 87706 Basophils/100 WBC (Bld)0.8 %NormalProGenesis Hospital HospitalComment on above: Performed By: #### CBCA, CMP, , 2776-04 ####[facility] ([id number])[address], [address] [place] [address] 01384Tcitjpmsumj (Bld) [#/Vol] 0.9 10*3/uLHigh0.0-0.4ProRegency Hospital CompanyComment on above:Performed By: #### CBCA, CMP, , 2776-04 ####[facility] ([id number])[address], [address], [place] [address]Svychnjakbh/100 WBC (Bld) 13.3 %NormalProMedica Lynn HospitalComment on above:Performed By: #### CBCA, CMP, , 1 ####[facility] ([id number])[address], [address], [place] [address]Pjjhtydnlvf distribution width (RBC) [Ratio]18.3 %High11.5-15.0ProMedica Lynn HospitalComment on above:Performed By: #### CBCA, CMP, , 2776-04 ####[facility] ([id number])[address], [address], [place] [address]Xryvdpvmls (Bld) [Volume fraction]22.7 %Low 35-47ProMedica Lynn HospitalComment on above:Performed By: #### CBCA, CMP, , 2776-04 ####[facility] ([id number])[address], [address], [place] [address]Butjywwfve (Bld) [Mass/Vol]7.5 g/dLLow11.7-15.5 [facility] Lynn HospitalComment on above:Performed By: #### CBCA, CMP, , 2776-04 ####[facility] ([id number])[address], [address], [place] [address]Yhlhhghwfnm (Bld) [#/Vol]1.2 10*3/uLNormal1.0-3.5ProMedica Lynn HospitalComment on above:Performed By: #### CBCA, CMP, , 2776-04 ####[facility] ([id number])[address], [address] [place] [address]Rmxpjpgxoyc/100 WBC (Bld)18.2 %NormalProMedica Lynn HospitalComment on above:Performed By: #### CBCA, CMP, , 2776-04 ####[facility] ([id number])[address], [address] [place] [address] 10228SUF (RBC) [Entitic mass]31.5 raVnevxi99-20IyiRxmnnn Lynn HospitalComment on above:Performed By: #### CBCA, CMP, , 2776-04 ####[facility] ([id number])[address], [address] [place] [address] 98913BEGQ (RBC) [Mass/Vol]32.9 g/yGIwxauo66-80EeoWjocid Lynn HospitalComment on above:Performed By: #### CBCA, CMP, , 2776-04 ####[facility] ([id number])[address], [address] [place] [address] 39608BMX (RBC) [Entitic vol]96 cMExdyml66-846 [facility] Lynn HospitalComment on above:Performed By: #### CBCA, CMP, , 2776-04 ####[facility] ([id number])[address], [address] [place] [address]Nxenjzgyi (Bld) [#/Vol]0.8 10*3/uLNormal0-0.9ProMedica Lynn HospitalComment on above:Performed By: #### CBCA, CMP, , 2776-04 ####[facility] ([id number])[address], [address] [place] [address]Rdftlkqmy/100 WBC (Bld)11.2 %NormalProMedica Lynn HospitalComment on above:Performed By: #### CBCA, CMP, , 2776-04 ####[facility] ([id number])[address], [address] [place] [address]Otonjkvpzix/100 WBC (Bld)56.5 %NormalProGenesis Hospital HospitalComment on above:Performed By: #### CBCChristiano, CMP, , 2776-04 ####[facility] ([id number])[address], [address] [place] [address] 78718Ixzqzbcd mean volume (Bld) [Entitic vol]6.8 fLLow7-12PFirelands Regional Medical Center HospitalComment on above:Performed By: #### CBCA, CMP, , 2776-04 ####[facility] ([id number])[address], [address] [place] [address] 570[address]Rpbwsbnnt (Bld) [#/Vol]443 10*3/wTTrbtxe670-528 [facility] HospitalComment on above:Performed By: #### CBCChristiano, CMP, , 2776-04 ####[facility] ([id number])[address], [address] [place] [address] 36027SPO COUNT2.37 X10E12/LLow3.80-5.20[facility] Comment on above:Performed By: #### CBCChristiano, CMP, , 2776-04 ####[facility] ([id number])[address], [address] [place] [address] 81997NBM (Bld) [#/Vol]6.9 10*3/uLNormal4.0-11.0[facility] HospitalComment on above: Performed By: #### CBCA, CMP, , 2776-04 ####[facility] ([id number])[address], [address] [place] [address] 77209ROEQGYFBCYSUW METABOLIC PANELon 06-86-9429Opijqbi [Mass/Vol]3.9 g/dLNormal3.2-5.3PFirelands Regional Medical Center HospitalComment on above:Performed By: #### CBCA, CMP, , 2776-04 ####[facility] ([id number])[address], [address], [place] [address]CHK [Catalytic activity/Vol]60 U/QOxhome06-084WfmEzbncz [facility] Comment on above:Performed By: #### NAMITA CMP, , 2776-04 ####[facility] ([id number])[address], [address], [place] [address]HLD [Catalytic activity/Vol]5 U/LNormal0-31[facility] HospitalComment on above:Performed By: #### RENA BREAUX, , 2776-04 ####[facility] ([id number])[address], [address], [place] [address]Oywvk gap [Moles/Vol]13 mmol/LNormal5-15[facility] HospitalComment on above:Performed By: #### RENA BREAUX, , 2776-04 ####[facility] ([id number])[address], [address], [place] [address]QTE [Catalytic activity/Vol]11 U/LNormal0-41 [facility] HospitalComment on above:Performed By: #### RENA BREAUX, , 2776-04 ####[facility] ([id number])[address], [address], [place] [address]Sfptnschs [Mass/Vol]1.0 mg/dLNormal0.3-1.2[facility] HospitalComment on above:Performed By: #### NAMITA CMP, , 2776-04 ####[facility] ([id number])[address], [address], [place] [address]Emmxavd [Mass/Vol]10.5 mg/dLNormal8.5-10.5[facility] HospitalComment on above:Performed By: #### RENA BREAUX, , 2776-04 ####[facility] ([id number])[address], [address], [place] [address]Aoqcugcq [Moles/Vol]103 mmol/HNbvvxe75-331ErfOnnkfj [facility]ney HospitalComment on above: Performed By: #### RENA BREAUX, , 2776-04 ####[facility] ([id number])[address], [address], [place] [address]EO6 [Moles/Vol]25 mmol/L Qlniqj25-39JvfAzgpfr [facility]ney HospitalComment on above:Performed By: #### RENA BREAUX, , 2776-04 ####[facility] ([id number])[address], [address] [place] [address] 87228Pmkrfczsrs [Mass/Vol]3.76 mg/dLHigh0.40-1.00 [facility] HospitalComment on above:Result Comment: METHOD TRACEABLE TO IDMS STANDARDPerformed By: #### RENA BREAUX, , 2776-04 ####[facility] ([id number])[address], [address] [place] [address] 66259CTG/1.73 sq M.predicted among non-blacks MDRD (S/P/Bld) [Vol rate/Area]13 mL/min/{1.73_m2} Low>59[facility] HospitalComment on above:Result Comment: Reported eGFR is based on theCKD-EPI 2020 equation that doesnot use a race coefficient.Performed By: #### RENA BREAUX, , 2776-04 ####[facility] ([id number])[address], [address], [place] [address]Oiectdf [Mass/Vol]90 mg/dL Toadqg59-22NaqQuklkg [facility]ney HospitalComment on above:Performed By: #### RENA BREAUX, , 2776-04 ####[facility] ([id number])[address], [address], [place] [address]Xbwxquhgy [Moles/Vol]3.8 mmol/LNormal3.5-5.0 [facility] HospitalComment on above:Performed By: #### RENA BREAXU, , 2776-04 ####[facility] ([id number])[address], [address], [place] [address]Cjekben [Mass/Vol]7.1 g/dLNormal6.0-8.0[facility] HospitalComment on above:Performed By: #### RENA BREAUX, , 2776-04 ####[facility] ([id number])[address], [address], [place] [address]Amdfqh [Moles/Vol]141 mmol/XIewxyn504-743LitKkzrrh Lynn HospitalComment on above:Performed By: #### RENA BREAUX, , 2776-04 ####[facility] ([id number])[address], [address], [place] [address]Ddvs nitrogen [Mass/Vol]84 mg/dLHigh5-27[facility] HospitalComment on above:Performed By: #### RENA BREAUX, , 2776-04 ####[facility] ([id number])[address], [address], [place] [address]IGRLDZNADaj 06-30-2024 Magnesium [Mass/Vol]2.2 mg/dLNormal1.8-2.6[facility] HospitalComment on above:Performed By: #### RENA BREAUX, , 2776-04 ####[facility] ([id number])[address], [address], [place] [address]KSCEUWYWEJjf 39-68-3258Hridmuipl [Mass/Vol]5.2 mg/dLHigh2.4-4.9[facility] Comment on above:Performed By: #### CBCChristiano, CMP, , 2777-1 ####[facility] ([id number])[address], [address] [place] [address] POTASSIUMon 99-05-7537Ubibfnzoy [Moles/Vol]4.6 mmol/LNormal3.5-5.0[facility] HospitalComment on above:Performed By: #### 2823-3 ####[facility] ([id number])[address], [address] [place] [address] 778[address]JY CHEST 1 VWon 69-46-5074RQ CHEST 1 VWNormalProRegency Hospital CompanyCBC AND AUTO DIFFon 77-32-9509MFZMNJIA BASOPHIL0.1 X10E9/LNormal0.0-0.2PKettering [facility] Comment on above:Performed By: #### CBCChristiano, CMP, , 2776-04 ####[facility] ([id number])[address], [address] [place] [address] ABSOLUTE NEUTROPHIL4.3 X10E9/LNormal1.5-6.6[facility] HospitalComment on above:Performed By: #### CBCChristiano, CMP, , 277-1 ####[facility] ([id number])[address], [address] [place] [address]60[address]Gkdzmglhd/100 WBC (Bld)0.7 %NormalProRegency Hospital CompanyComment on above:Performed By: #### CBCA, CMP, , 2777-1 ####[facility] ([id number])[address], [address] [place] [address] 16267Lqanwduzhss (Bld) [#/Vol]0.9 10*3/uLHigh 0.0-0.4ProReg[facility] Hospital CompanyComment on above:Performed By: #### CBCA, CMP, , 2776-04 ####[facility] ([id number])[address] [address], [place] [address]Clthykpmwum/100 WBC (Bld)12.6 %NormalProRegency Hospital CompanyComment on above:Performed By: #### CBCA, CMP, , 2776-04 ####[facility] ([id number])[address] [address] [place] [address]45[address]Mlntloxuayy distribution width (RBC) [Ratio]17.5 %High11.5-15.0Pro[facility] Hospital CompanyComment on above:Performed By: #### CBCA, CMP, , 2776-04 ####[facility] ([id number])[address] [address]Xpvakqrxfe (Bld) [Volume fraction]21.9 %Wxh81-65UefLmtpyo [facility] Comment on above:Performed By: #### CBCA, CMP, , 2776-04 ####[facility] ([id number])[address] [address] [address] Hemoglobin (Bld) [Mass/Vol]7.4 g/dLLow11.7-15.5PKettering Health Behavioral Medical CenterComment on above:Performed By: #### CBCA, CMP, , 2776-04 ####[facility] ([id number])[address] [address] [place] [address] 87769Oulktcrfuea (Bld) [#/Vol]1.4 10*3/uLNormal1.0-3.5PKettering Health Behavioral Medical CenterComment on above: Performed By: #### CBCA, CMP, , 2776-04 ####[facility] ([id number])[address] [address], [place] [address]Ymenqfxwvwd/100 WBC (Bld) 18.9 %NormalProMedica Lynn HospitalComment on above:Performed By: #### CBCA, CMP, , 2776-04 ####[facility] ([id number])[address], [address], [place] [address]FSI (RBC) [Entitic mass]32.0 tuMflinb41-17 [facility] HospitalComment on above:Performed By: #### CBCA, CMP, , 2776-04 ####[facility] ([id number])[address], [address] [place] [address] 53[address]PDUV (RBC) [Mass/Vol]33.6 g/wAVhynpx16-08YfhLuomho Lynn HospitalComment on above:Performed By: #### CBCA, CMP, , 2776-04 ####[facility] ([id number])[address], [address] [place] [address] 34517PQL (RBC) [Entitic vol]95 xYPyewhu87-124KfhTvweov Lynn HospitalComment on above:Performed By: #### CBCA, CMP, , 2776-04 ####[facility] ([id number])[address] [address] [place] [address] 08[address]Mkauurldm (Bld) [#/Vol]0.7 10*3/uLNormal0-0.9[facility] HospitalComment on above:Performed By: #### CBCA, CMP, , 2776-04 ####[facility] ([id number])[address] [address] [place] [address]657Tqecsbjwp/100 WBC (Bld)9.5 %NormalProMedica Lynn HospitalComment on above:Performed By: #### CBCA, CMP, , 2776-04 ####[facility] ([id number])[address], [address], [place] [address]Igdieqpzhub/100 WBC (Bld)58.3 %NormalProLouis Stokes Cleveland Va Medical Centerca Carney HospitalComment on above:Performed By: #### CBCChristiano CMP, , 2776-04 ####[facility] ([id number])[address], [address] [place] [address] 17361Ztywoihs mean volume (Bld) [Entitic vol]6.8 fLLow7-12[facility] HospitalComment on above:Performed By: #### CBCChristiano CMP, , 2776-04 ####[facility] ([id number])[address], [address] [place] [address] 98[address]Gjqcmygea (Bld) [#/Vol]458 10*3/xBGhhe880-289RopJxdqbg [facility] Comment on above:Performed By: #### NAMITA CMP, , 2776-04 ####[facility] ([id number])[address], [address] [place] [address] 91284SEL COUNT2.30 X10E12/LLow3.80-5.20ProLouis Stokes Cleveland Va Medical Centerca Carney HospitalComment on above: Performed By: #### CBCChristiano, CMP, , 2776-04 ####[facility] ([id number])[address] [address] [place] [address] 32669CWA (Bld) [#/Vol]7.3 10*3/uLNormal4.0-11.0ProLouis Stokes Cleveland Va Medical Centerca Carney HospitalComment on above:Performed By: #### CBCChristiano, CMP, , 2776-04 ####[facility] ([id number])[address], [address] [place] [address] 87995IMVINJCDCHIVM METABOLIC PANELon 88-29-8833Zhgkwhg [Mass/Vol]3.8 g/dLNormal3.2-5.3[facility] HospitalComment on above:Performed By: #### NAMITA CMP, , 2776-04 ####[facility] ([id number])[address], [address], [place] [address]UOW [Catalytic activity/Vol]66 U/VEwqhkm64-131MhzTigyim [facility] Comment on above:Performed By: #### NAMITA CMP, , 2776-04 ####[facility] ([id number])[address], [address], [place] [address]RYA [Catalytic activity/Vol]5 U/LNormal0-31[facility] HospitalComment on above:Performed By: #### NAMITA, CMP, , 2776-04 ####[facility] ([id number])[address], [address], [place] [address]Qxnji gap [Moles/Vol]15 mmol/LNormal5-15[facility] HospitalComment on above:Performed By: #### NAMITA CMP, , 2776-04 ####[facility] ([id number])[address], [address], [place] [address]YFB [Catalytic activity/Vol]11 U/LNormal0-41 [facility] HospitalComment on above:Performed By: #### NAMITA CMP, , 2776-04 ####[facility] ([id number])[address], [address], [place] [address]Kbkpqudqt [Mass/Vol]0.9 mg/dLNormal0.3-1.2[facility] HospitalComment on above:Performed By: #### NAMITA, CMP, , 2776-04 ####[facility] ([id number])[address], [address], [place] [address]Rpyoain [Mass/Vol]10.2 mg/dLNormal8.5-10.5[facility] HospitalComment on above:Performed By: #### RENA BREAUX, , 2776-04 ####[facility] ([id number])[address], [address], [place] [address]Dxaribek [Moles/Vol]103 mmol/FTturmx46-541AhhYcvbfl [facility] HospitalComment on above: Performed By: #### RENA BREAUX, , 2776-04 ####[facility] ([id number])[address], [address], [place] [address]HJ5 [Moles/Vol]23 mmol/L Ifjeka89-16SvgWjxdwwKettering Health Behavioral Medical CenterComment on above:Performed By: #### RENA BREAUX, , 2776-04 ####[facility] ([id number])[address], [address], [place] [address]Fdguckjjlx [Mass/Vol]3.65 mg/dLHigh0.40-1.00 [facility] HospitalComment on above:Result Comment: METHOD TRACEABLE TO IDMS STANDARDPerformed By: #### RENA BREAUX, , 2776-04 ####[facility] ([id number])[address], [address], [place] [address]RSR/1.73 sq M.predicted among non-blacks MDRD (S/P/Bld) [Vol rate/Area]14 mL/min/{1.73_m2} Low>59[facility] HospitalComment on above:Result Comment: Reported eGFR is based on theCKD-EPI 2020 equation that doesnot use a race coefficient.Performed By: #### RENA BREAUX, , 2776-04 ####[facility] ([id number])[address], [address], [place] [address]Wygphdf [Mass/Vol]101 mg/dL Vwwg21-62NsgMrngav [facility] HospitalComment on above:Performed By: #### RENA BREAUX, , 2776-04 ####[facility] ([id number])[address], [address] [place] [address]Vglmcbwts [Moles/Vol]3.6 mmol/LNormal3.5-5.0[facility] HospitalComment on above:Performed By: #### RENA BREAUX, , 2776-04 ####[facility] ([id number])[address], [address], [place] [address]Fntytuc [Mass/Vol]6.8 g/dLNormal6.0-8.0[facility] HospitalComment on above:Performed By: #### RENA BREAUX, , 2776-04 ####[facility] ([id number])[address], [address] [place] [address]Fdehar [Moles/Vol]141 mmol/DRkaene635-012ShtCzdfdc [facility] HospitalComment on above: Performed By: #### RENA BREAUX, , 2776-04 ####[facility] ([id number])[address], [address] [place] [address] 34[address]Akqk nitrogen [Mass/Vol]76 mg/dLHigh5-27[facility] HospitalComment on above:Performed By: #### RENA BREAUX, , 2776-04 ####[facility] ([id number])[address], [address], [place] [address]Toxlyjx Glucometer (BldC) [Mass/Vol]on 34-44-9946Hlwxrel [Mass/Vol]95 mg/vCGefpme17-05JxfFxbzas [facility] MAGNESIUMon 54-35-1534Lictiyyoh [Mass/Vol]2.2 mg/dLNormal1.8-2.6[facility] HospitalComment on above:Performed By: #### RENA BREAUX, , 2776-04 ####[facility] ([id number])[address], [address], [place] [address]QZEYODYGCTsv 00-44-0352Hugbmnjxs [Mass/Vol]5.2 mg/dLHigh2.4-4.9[facility] HospitalComment on above:Performed By: #### CBCA, CMP, , 2776-04 ####[facility] ([id number])[address], [place] [address]YQGLYBUBUyn 39-41-3348Zzcklxzks [Moles/Vol]3.9 mmol/LNormal3.5-5.0 [facility] HospitalComment on above:Performed By: #### 2823-3 ####[facility] ([id number])[address], [place] [address] VENOUS BLOOD GASon 68-84-8714VVYNK'S TESTNormalProMedica Lynn HospitalComment on above:Performed By: #### VBG ####[facility] ([id number])[address] [place], [place] [address]RGTE,DEFICIT3.0 MMOL/LHigh0.0-2.0[facility] HospitalComment on above:Performed By: #### VBG ####[facility] ([id number])[address] [place], [place] [address]Qgml eojeuhdomqt77.6 [degF]Normal 37.0[facility] HospitalComment on above:Performed By: #### VBG ####[facility] ([id number])[address] [place], [place] [address]FIM6 (Bld) [Moles/Vol]24.5 mmol/LHigh20.0-24.0[facility] HospitalComment on above: Performed By: #### VBG ####[facility] ([id number])[address] [place], [place] [address]QPAB. O2 CONC.4 %NormalProMedica Lynn HospitalComment on above:Performed By: #### VBG ####[facility] ([address] [place] [address])[address] [place], [place] [address]Wkbeof saturation in Blood54.0 %Low>80.0[facility] HospitalComment on above:Performed By: #### VBG ####[facility] ([address] [place] [address])[address] [place], [place] [address]BKGCLH SOURCENCNormal [facility] HospitalComment on above:Performed By: #### VBG ####[facility] ([address] [place] [address])[address] [place], [place] [address]HFM1, VENOUS 58.6 LXVIHhca49-94FusBefeoy Lynn HospitalComment on above:Performed By: #### VBG ####[facility] ([address] [place] [address])[address] [place] [address] PH, VENOUS7.604Ldy2.320-7.420[facility] HospitalComment on above:Performed By: #### VBG ####[facility] ([address] [place] [address])[address] [place], [place] [address]LE6, PSBAFG62 KPUKSigexa04-95EicMrduun [facility] Comment on above:Performed By: #### VBG ####[facility] ([address] [place] [address])[address] [place], [place] [address]ZHJGGQ SITEN/ANormalProMedica Lynn HospitalComment on above:Performed By: #### VBG ####[facility] ([address] [place] [address])[address] [place], [place] [address]WFZXZW TYPEVENOUSNormal [facility] HospitalComment on above:Performed By: #### VBG ####[facility] ([address] [place] [address])[address] [place], [place] [address]UE CHEST 1 VWon 72-93-7418EO CHEST 1 VWNormalProRegency Hospital CompanyCBC AND AUTO DIFFon 17-55-0072SICUKJWS BASOPHIL0.1 X10E9/LNormal0.0-0.2PKettering Health Behavioral [facility] Center Comment on above:Performed By: #### NAMITA [facility], , 2776-04 ####[facility] ([id number])[address], [address] [address] ABSOLUTE NEUTROPHIL4.9 X10E9/LNormal1.5-6.6[facility] HospitalComment on above:Performed By: #### NAMITA [facility], , 2776-04 ####[facility] ([id number])[address], [address], [place] [address]Fcppxizjt/100 WBC (Bld)1.3 %NormalProGenesis Hospital HospitalComment on above:Performed By: #### CBCChristiano [facility], , 2776-04 ####[facility] ([id number])[address], [address] [place] [address]Dwapenbnjfd (Bld) [#/Vol]0.8 10*3/uLHigh 0.0-0.4[facility] HospitalComment on above:Performed By: #### CBCChristiano CMP, , 2776-04 ####[facility] ([id number])[address], [address], [place] [address]Qmjmmoaeknv/100 WBC (Bld)9.6 %NormalProGenesis Hospital HospitalComment on above:Performed By: #### CBCA, CMP, , 2776-04 ####[facility] ([id number])[address], [address] [place] [address]Mvmmbcdqddl distribution width (RBC) [Ratio]17.6 %High11.5-15.0[facility] HospitalComment on above:Performed By: #### CBCA, CMP, , 2776-04 ####[facility] ([id number])[address], [address], [place] [address]Lbmyxbthiq (Bld) [Volume fraction]22.6 %Vhx68-74XdqLuqqil [facility] Comment on above:Performed By: #### CBCA, CMP, , 2776-04 ####[facility] ([id number])[address], [address] [address] Hemoglobin (Bld) [Mass/Vol]7.4 g/dLLow11.7-15.5PFirelands Regional Medical Center HospitalComment on above:Performed By: #### CBCA, CMP, , 2776-04 ####[facility] ([id number])[address], [address], [place] [address]Bfhmtlqzkwo (Bld) [#/Vol]1.3 10*3/uLNormal1.0-3.5PFirelands Regional Medical Center HospitalComment on above: Performed By: #### CBCChristiano, CMP, , 2776-04 ####[facility] ([id number])[address] [address], [place] [address]Rphbsnhvatr/100 WBC (Bld) 15.7 %NormalProGenesis Hospital HospitalComment on above:Performed By: #### CBCA, CMP, , 2776-04 ####[facility] ([id number])[address], [address] [place] [address]VID (RBC) [Entitic mass]31.4 twTekzvm26-49 [facility] HospitalComment on above:Performed By: #### CBCA, CMP, , 2776-04 ####[facility] ([id number])[address], [address] [place] [address]MHTA (RBC) [Mass/Vol]32.8 g/dJMihcws07-81UnzTnhzjd [facility] HospitalComment on above:Performed By: #### CBCA, CMP, , 2776-04 ####[facility] ([id number])[address], [address] [place] [address]BHE (RBC) [Entitic vol]96 lORjhvci77-454SvoEsrzty [facility] HospitalComment on above:Performed By: #### CBCA, CMP, , 2776-04 ####[facility] ([id number])[address], [address] [place] [address]Xcnxjcbsb (Bld) [#/Vol]0.9 10*3/uLNormal0-0.9ProMedica Lynn HospitalComment on above:Performed By: #### CBCA, CMP, , 2776-04 ####[facility] ([id number])[address], [address] [place] [address] 18777Nmmvbgube/100 WBC (Bld)11.8 %NormalProMedica Lynn HospitalComment on above:Performed By: #### CBCA, CMP, , 2776-04 ####[facility] ([id number])[address], [address] [place] [address] 18191Heoqkoypamn/100 WBC (Bld)61.6 %NormalProMedica Lynn HospitalComment on above:Performed By: #### CBCA, CMP, , 2776-04 ####[facility] ([id number])[address], [address] [place] [address] 81847Xvabcitt mean volume (Bld) [Entitic vol]6.7 fLLow7-12ProMedica Lynn HospitalComment on above:Performed By: #### CBCA, CMP, , 2776-04 ####[facility] ([id number])[address], [address], [place] [address]Wjppmzeyb (Bld) [#/Vol]430 10*3/gCMojddy127-783FygGifqyzOhioHealth Doctors Hospital Comment on above:Performed By: #### NAMITA CMP, , 1 ####[facility] ([id number])[address], [address], [place] [address]QRJ COUNT2.36 X10E12/LLow3.80-5.20ProRegency Hospital CompanyComment on above: Performed By: #### RENA BREAUX, , 2776-04 ####[facility] ([id number])[address], [address], [place] [address]IQR (Bld) [#/Vol]8.0 10*3/uLNormal4.0-11.0ProRegency Hospital CompanyComment on above:Performed By: #### NAMITA CMP, , 2776-04 ####[facility] ([id number])[address], [address], [place] [address]EYQQOXBMZONDE METABOLIC PANELon 87-56-8006Ckewuxq [Mass/Vol]3.9 g/dLNormal3.2-5.3PKettering Health Behavioral Medical CenterComment on above:Performed By: #### NAMITA CMP, , 2776-04 ####[facility] ([id number])[address], [address], [place] [address]SOK [Catalytic activity/Vol]64 U/YZakvld43-912BnbUzuczhOhioHealth Doctors Hospital Comment on above:Performed By: #### CBCA, CMP, , 1 ####[facility] ([id number])[address], [address], [place] [address]FNM [Catalytic activity/Vol]5 U/LNormal0-31ProMedica Lynn HospitalComment on above:Performed By: #### RENA BREAUX, , 2776-04 ####[facility] ([id number])[address], [address], [place] [address]Eiocq gap [Moles/Vol]16 mmol/LHigh5-15Pro[facility]ica Carney HospitalComment on above:Performed By: #### RENA BREAUX, , 2776-04 ####[facility] ([id number])[address], [address], [place] [address]EPP [Catalytic activity/Vol]11 U/LNormal0-41 [facility] Carney HospitalComment on above:Performed By: #### RENA BREAUX, , 2776-04 ####[facility] ([id number])[address], [address], [place] [address]Fewbqkaap [Mass/Vol]1.0 mg/dLNormal0.3-1.2ProMedWooster Community Hospital HospitalComment on above:Performed By: #### RENA BREAUX, , 2776-04 ####[facility] ([id number])[address], [address], [place] [address]Jlmdobn [Mass/Vol]10.4 mg/dLNormal8.5-10.5PFirelands Regional Medical Center HospitalComment on above:Performed By: #### RENA BREAUX, , 2776-04 ####[facility] ([id number])[address], [address], [place] [address]Giqqttvx [Moles/Vol]101 mmol/EWsyntp36-780FghSqrisr [place] HospitalComment on above: Performed By: #### RENA BREAUX, , 2776-04 ####[facility] ([id number])[address], [address], [place] [address]RB8 [Moles/Vol]21 mmol/LLow 22-32ProMedica Carney HospitalComment on above:Performed By: #### RENA BREAUX, , 2776-04 ####[facility] ([id number])[address], [address], [place] [address]Xpumkacpum [Mass/Vol]3.26 mg/dLHigh0.40-1.00ProMedica Carney HospitalComment on above:Result Comment: METHOD TRACEABLE TO IDMS STANDARDPerformed By: #### RENA BREAUX, , 2776-04 ####[facility] ([id number])[address] [address]PTN/1.73 sq M.predicted among non-blacks MDRD (S/P/Bld) [Vol rate/Area]16 mL/min/{1.73_m2} Low>59ProMedica Carney HospitalComment on above:Result Comment: Reported eGFR is based on theCKD-EPI 2020 equation that doesnot use a race coefficient.Performed By: #### RENA BREAUX, , 2776-04 ####[facility] ([id number])[address] [address] [place] [address] 22405Yjlimgo [Mass/Vol]83 mg/dL Lhgiwj66-05BzeZesxbr [place] HospitalComment on above:Performed By: #### RENA BREAUX, , 2776-04 ####[facility] ([id number])[address], [address] [place], [place] [address]Gxgpgzmod [Moles/Vol]3.9 mmol/LNormal3.5-5.0 [facility]ney HospitalComment on above:Performed By: #### RENA BREAUX, , 2776-04 ####[facility] ([id number])[address] [place] [address] [place], [place] [address]Mgxklgw [Mass/Vol]7.0 g/dLNormal6.0-8.0[facility] Lynn HospitalComment on above:Performed By: #### RENA BREAUX, , 2776-04 ####[facility] ([id number])[address], [address], [place] [address]Rbvtkj [Moles/Vol]138 mmol/QIvqwlu377-554UavCraxlq Lynn HospitalComment on above:Performed By: #### RENA BREAUX, , 2776-04 ####[facility] ([id number])[address], [address], [place] [address]Khuk nitrogen [Mass/Vol]76 mg/dLHigh5-27[facility] Lynn HospitalComment on above:Performed By: #### RENA BREAUX, , 2776-04 ####[facility] ([id number])[address], [address] [place] [address] 11981ZMVANPCHRsm 06-28-2024 Magnesium [Mass/Vol]2.4 mg/dLNormal1.8-2.6[facility] Carney HospitalComment on above:Performed By: #### RENA BREAUX, , 2776-04 ####[facility] ([id number])[address], [address] [place] [address]KEKKPXQIOJob 72-77-8326Xqpkbpdta [Mass/Vol]5.5 mg/dLHigh2.4-4.9Pro[facility]erca [facility] Comment on above:Performed By: #### RENA BREAUX, , 2776-04 ####[facility] ([id number])[address], [address], [place] [address]EBU AND AUTO DIFFon 82-74-3274QLCWYKTF BASOPHIL0.1 X10E9/LNormal0.0-0.2[facility] Lynn HospitalComment on above:Performed By: #### RENA BREAUX, , 2776-04 ####[facility] ([id number])[address], [address] [place] [address]GULGDAWH NEUTROPHIL4.1 X10E9/LNormal1.5-6.6Pro[facility] Comment on above:Performed By: #### CBCChristiano, CMP, , 2776-04 ####[facility] ([id number])[address], [address] [place] [address]894 Basophils/100 WBC (Bld)0.8 %NormalProGenesis Hospital HospitalComment on above: Performed By: #### CBCA, CMP, , 2776-04 ####[facility] ([id number])[address], [address] [place] [address] 117[address]Mtpcjqzyusk (Bld) [#/Vol] 0.4 10*3/uLNormal0.0-0.4[facility] HospitalComment on above:Performed By: #### CBCA, CMP, , 2776-04 ####[facility] ([id number])[address] [address] [place] [address] 22710Xzkpyikbuus/100 WBC (Bld) 6.0 %NormalProGenesis Hospital HospitalComment on above:Performed By: #### CBCA, CMP, , 2776-04 ####[facility] ([id number])[address], [address] [place] [address] 450[address]Oylhlvpzxlm distribution width (RBC) [Ratio]17.5 %High11.5-15.0[facility] HospitalComment on above:Performed By: #### CBCA, CMP, , 2776-04 ####[facility] ([id number])[address], [address] [place] [address]Emumapgkjy (Bld) [Volume fraction]22.2 %Low 35-47[facility] HospitalComment on above:Performed By: #### CBCA, CMP, , 2776-04 ####[facility] ([id number])[address], [address], [place] [address]Ohaebuelcl (Bld) [Mass/Vol]7.4 g/dLLow11.7-15.5 [facility] Carney HospitalComment on above:Performed By: #### CBCA, CMP, , 2776-04 ####[facility] ([id number])[address], [address], [place] [address]Pkwantaiaij (Bld) [#/Vol]1.3 10*3/uLNormal1.0-3.5[facility] Carney HospitalComment on above:Performed By: #### CBCA, CMP, , 2776-04 ####[facility] ([id number])[address], [address] [place] [address]Hfelgfsknln/100 WBC (Bld)19.0 %NormalProLouis Stokes Cleveland Va Medical Centerca Carney HospitalComment on above:Performed By: #### CBCA, CMP, , 2776-04 ####[facility] ([id number])[address], [address], [place] [address]JYY (RBC) [Entitic mass]31.8 auTrksgw19-91IqfKhsiez Carney HospitalComment on above:Performed By: #### CBCA, CMP, , 2776-04 ####[facility] ([id number])[address], [address], [place] [address]AXMX (RBC) [Mass/Vol]33.4 g/fZKjtrsk07-54UdrWqajey Carney HospitalComment on above:Performed By: #### CBCA, CMP, , 2776-04 ####[facility] ([id number])[address], [address], [place] [address]TUK (RBC) [Entitic vol]95 jTXkdfic78-724 [facility] HospitalComment on above:Performed By: #### CBCA, CMP, , 2776-04 ####[facility] ([id number])[address], [address], [place] [address]Diopmjyug (Bld) [#/Vol]0.9 10*3/uLNormal0-0.9[facility] Lynn HospitalComment on above:Performed By: #### CBCA, CMP, , 2776-04 ####[facility] ([id number])[address], [address], [place] [address]Sicnfkulm/100 WBC (Bld)13.7 %NormalProMedica Lynn HospitalComment on above:Performed By: #### CBCA, CMP, , 2776-04 ####[facility] ([id number])[address], [address], [place] [address]Oeowirfaaat/100 WBC (Bld)60.5 %NormalProMedica Lynn HospitalComment on above:Performed By: #### CBCA, CMP, , 2776-04 ####[facility] ([id number])[address], [address] [place], [place] [address]Nvrjxltf mean volume (Bld) [Entitic vol]6.8 fLLow7-12[facility] Lynn HospitalComment on above:Performed By: #### CBCA, CMP, , 2776-04 ####[facility] ([id number])[address], [address], [place] [address]Yjdbwxfnc (Bld) [#/Vol]405 10*3/oICjlgjd552-963 [facility] HospitalComment on above:Performed By: #### CBCA, CMP, , 2776-04 ####[facility] ([id number])[address], [address] [place], [place] [address]HRU COUNT2.33 X10E12/LLow3.80-5.20[facility] Comment on above:Performed By: #### RENA BREAUX, , 1 ####[facility] ([id number])[address], [address], [place] [address]RFD (Bld) [#/Vol]6.8 10*3/uLNormal4.0-11.0ProRegency Hospital CompanyComment on above: Performed By: #### RENA BREAUX, , 2776-04 ####[facility] ([id number])[address], [address], [place] [address]QIABJFDGGSDHC METABOLIC PANELon 67-06-3255Pcstfne [Mass/Vol]4.0 g/dLNormal3.2-5.3PFirelands Regional Medical Center HospitalComment on above:Performed By: #### RENA BREAUX, , 2776-04 ####[facility] ([id number])[address], [address], [place] [address]PHJ [Catalytic activity/Vol]60 U/LLuwxrz10-816DquNxbrmfOhioHealth Doctors Hospital Comment on above:Performed By: #### NAMITA CMP, , 2776-04 ####[facility] ([id number])[address], [address], [place] [address]NKS [Catalytic activity/Vol]6 U/LNormal0-31PKettering Health Behavioral Medical CenterComment on above:Performed By: #### NAMITA, CMP, , 2776-04 ####[facility] ([id number])[address], [address], [place] [address]Icqku gap [Moles/Vol]15 mmol/LNormal5-15[facility] HospitalComment on above:Performed By: #### RENA BREAUX, , 2776-04 ####[facility] ([id number])[address], [address], [place] [address]QTT [Catalytic activity/Vol]13 U/LNormal0-41 [facility] Carney HospitalComment on above:Performed By: #### RENA BREAUX, , 2776-04 ####[facility] ([id number])[address], [address], [place] [address]Pptfeaktz [Mass/Vol]0.9 mg/dLNormal0.3-1.2[facility] HospitalComment on above:Performed By: #### RENA BREAUX, , 2776-04 ####[facility] ([id number])[address], [address], [place] [address]Csotiid [Mass/Vol]10.1 mg/dLNormal8.5-10.5ProMedWooster [facility] Hospital HospitalComment on above:Performed By: #### RENA BREAUX, , 2776-04 ####[facility] ([id number])[address], [address], [place] [address]Hjhdyexs [Moles/Vol]102 mmol/MLqftml10-320JmnWqcwzf Carney HospitalComment on above: Performed By: #### RENA BREAUX, , 2776-04 ####[facility] ([id number])[address], [address], [place] [address]ZV1 [Moles/Vol]22 mmol/L Kpfjos82-80GmqUpdwyl [place] HospitalComment on above:Performed By: #### RENA BREAUX, , 2776-04 ####[facility] ([id number])[address], [address], [place] [address]Vcvasopukf [Mass/Vol]2.91 mg/dLHigh0.40-1.00 [facility] HospitalComment on above:Result Comment: METHOD TRACEABLE TO IDAK STANDARDPerformed By: #### RENA BREAUX, , 2776-04 ####[facility] ([id number])[address] [address], [place] [address]EKS/1.73 sq M.predicted among non-blacks MDRD (S/P/Bld) [Vol rate/Area]18 mL/min/{1.73_m2} Low>59[facility] HospitalComment on above:Result Comment: Reported eGFR is based on theCKD-EPI 2020 equation that doesnot use a race coefficient.Performed By: #### RENA BREAUX, , 2776-04 ####[facility] ([id number])[address] [address] [place], [place] [address]Hpzhmmj [Mass/Vol]80 mg/dL Crkcxv29-08SduPzyvuq [place] HospitalComment on above:Performed By: #### RENA BREAUX, , 2776-04 ####[facility] ([id number])[address], [address] [place], [place] [address]Nydwiajtr [Moles/Vol]4.2 mmol/LNormal3.5-5.0 [facility] HospitalComment on above:Performed By: #### RENA BREAUX, , 2776-04 ####[facility] ([id number])[address] [address], [place] [address]Lrjrppf [Mass/Vol]7.0 g/dLNormal6.0-8.0[facility] HospitalComment on above:Performed By: #### RENA BREAUX, , 2776-04 ####[facility] ([id number])[address], [address], [place] [address]Padspz [Moles/Vol]139 mmol/VEpyzxn620-738UhwLbizgg [place] HospitalComment on above:Performed By: #### RENA BREAUX, , 2776-04 ####[facility] ([id number])[address], [address] [place] [address]Ntrc nitrogen [Mass/Vol]71 mg/dLHigh5-27[facility] HospitalComment on above:Performed By: #### RENA BREAUX, , 2776-04 ####[facility] ([id number])[address], [address] [place] [address]FUI core IgM IA Qlon 19-38-3085EZBDMHWJS B CORE IGMNon-ReactiveNormalNRCTOhioHealth Doctors Hospital Comment on above:Result Comment: NEW TEST METHODPerformed By: #### 39930-2 ####[facility] ([id number])[address], [address] [place] [address]JWYCMZLEVad 79-79-5363Ariublevw [Mass/Vol]2.5 mg/dLNormal1.8-2.6[facility] HospitalComment on above:Performed By: #### RENA BREAUX, , 2776-04 ####[facility] ([id number])[address], [address] [place] [address]ILZMHICDOAmf 49-20-9645Tthiyoghv [Mass/Vol]5.3 mg/dLHigh2.4-4.9ProReg[facility] Hospital CompanyComment on above:Performed By: #### RENA BREAUX, , 2776-04 ####[facility] ([id number])[address], [address] [place] [address]DNT AND AUTO DIFFon 19-81-4069NKRRZFKY BASOPHIL0.2 X10E9/LNormal0.0-0.2 [facility]ney HospitalComment on above:Performed By: #### RENA BREAUX, , 2776-04 ####[facility] ([id number])[address], [address], [place] [address]BDKQFSCM NEUTROPHIL3.7 X10E9/LNormal1.5-6.6[facility] HospitalComment on above:Performed By: #### CBCA, CMP, , 2776-04 ####[facility] ([id number])[address], [address] [place] [address]Ptjzboygx/100 WBC (Bld)2.7 %NormalProMedica Lynn HospitalComment on above:Performed By: #### CBCA, CMP, , 2776-04 ####[facility] ([id number])[address], [address], [place] [address]Mzqtdsybzwr (Bld) [#/Vol]0.1 10*3/uLNormal0.0-0.4[facility] HospitalComment on above: Performed By: #### CBCA, CMP, , 2776-04 ####[facility] ([id number])[address], [address], [place] [address]Xqwunxkvmdu/100 WBC (Bld) 2.3 %NormalProMedica Lynn HospitalComment on above:Performed By: #### CBCA, CMP, , 2776-04 ####[facility] ([id number])[address], [address], [place] [address]Cyboeegxloi distribution width (RBC) [Ratio]17.4 %High11.5-15.0[facility] HospitalComment on above:Performed By: #### CBCA, CMP, , 2776-04 ####[facility] ([id number])[address], [address], [place] [address]Eeqhpmgbsc (Bld) [Volume fraction]22.2 %Low 35-47[facility] HospitalComment on above:Performed By: #### CBCA, CMP, , 2776-04 ####[facility] ([id number])[address], [address], [place] [address]Xbihyvbbal (Bld) [Mass/Vol]7.4 g/dLLow11.7-15.5 [facility]ney HospitalComment on above:Performed By: #### CBCA, CMP, , 2776-04 ####[facility] ([id number])[address], [address], [place] [address]Gvvvdajlknl (Bld) [#/Vol]1.2 10*3/uLNormal1.0-3.5[facility]ney HospitalComment on above:Performed By: #### CBCA, CMP, , 2776-04 ####[facility] ([id number])[address], [address], [place] [address]Nmwhxunznfe/100 WBC (Bld)19.4 %NormalProGenesis Hospital HospitalComment on above:Performed By: #### CBCA, CMP, , 2776-04 ####[facility] ([id number])[address], [address], [place] [address]QPA (RBC) [Entitic mass]31.8 jaKjybtv92-70LfeFtssxh [place] HospitalComment on above:Performed By: #### CBCA, CMP, , 2776-04 ####[facility] ([id number])[address], [address], [place] [address]RWYP (RBC) [Mass/Vol]33.6 g/mGRcnmzi08-05UyfYcipnr [facility]ney HospitalComment on above:Performed By: #### CBCA, CMP, , 2776-04 ####[facility] ([id number])[address], [address], [place] [address]DYY (RBC) [Entitic vol]95 zJRnjqsm26-678 [facility] HospitalComment on above:Performed By: #### CBCA, CMP, , 2776-04 ####[facility] ([id number])[address], [address], [place] [address]Snddzpqba (Bld) [#/Vol]1.0 10*3/uLHigh0-0.9[facility] HospitalComment on above:Performed By: #### CBCA, CMP, , 2776- ####[facility] ([id number])[address], [address], [place] [address]Bwuasvqam/100 WBC (Bld)15.5 %NormalProMedica Lynn HospitalComment on above:Performed By: #### CBCA, CMP, , 2776-04 ####[facility] ([id number])[address], [address], [place] [address]Itdloyaprzg/100 WBC (Bld)60.1 %NormalProMedica Lynn HospitalComment on above:Performed By: #### CBCA, CMP, , 2776-04 ####[facility] ([id number])[address], [address], [place] [address]Aptoqmzl mean volume (Bld) [Entitic vol]6.7 fLLow7-12[facility] HospitalComment on above:Performed By: #### CBCA, CMP, , 2776- ####[facility] ([id number])[address], [address], [place] [address]Bpibgfqyq (Bld) [#/Vol]394 10*3/aFKjnthq710-990 [facility] HospitalComment on above:Performed By: #### CBCA, CMP, , 2776- ####[facility] ([id number])[address], [address], [place] [address]LHC COUNT2.34 X10E12/LLow3.80-5.20[facility] Comment on above:Performed By: #### RENA BREAUX, , 2776-04 ####[facility] ([id number])[address], [address], [place] [address]YRS (Bld) [#/Vol]6.2 10*3/uLNormal4.0-11.0ProReg[facility] Hospital CompanyComment on above: Performed By: #### RENA BREAUX, , 2776-04 ####[facility] ([id number])[address], [address], [place] [address]IQUXYVGCTSDFY METABOLIC PANELon 67-33-0637Qzygfbo [Mass/Vol]4.4 g/dLNormal3.2-5.3PKettering Health Behavioral Medical CenterComment on above:Performed By: #### RENA BREAUX, , 2776-04 ####[facility] ([id number])[address], [address], [place] [address]WJV [Catalytic activity/Vol]63 U/IXlqhjb80-506XovTmurgdOhioHealth Doctors Hospital Comment on above:Performed By: #### RENA BREAUX, , 2776-04 ####[facility] ([id number])[address], [address], [place] [address]BUS [Catalytic activity/Vol]5 U/LNormal0-31PKettering Health Behavioral Medical CenterComment on above:Performed By: #### NAMITA CMP, , 2776-04 ####[facility] ([id number])[address], [address], [place] [address]Wghep gap [Moles/Vol]17 mmol/LHigh5-15[facility] HospitalComment on above:Performed By: #### RENA BREAUX, , 2776-04 ####[facility] ([id number])[address], [address], [place] [address]TAD [Catalytic activity/Vol]12 U/LNormal0-41 [facility] HospitalComment on above:Performed By: #### RENA BREAUX, , 2776-04 ####[facility] ([id number])[address], [address], [place] [address]Lrktbovod [Mass/Vol]1.0 mg/dLNormal0.3-1.2[facility] HospitalComment on above:Performed By: #### RENA BREAUX, , 2776-04 ####[facility] ([id number])[address], [address], [place] [address]Wwydkui [Mass/Vol]10.2 mg/dLNormal8.5-10.5ProMedWooster [facility] Hospital HospitalComment on above:Performed By: #### RENA BREAUX, , 2776-04 ####[facility] ([id number])[address], [address], [place] [address]Mvaaqhrt [Moles/Vol]98 mmol/TJopsyg58-756VgcFuldnc [place] HospitalComment on above: Performed By: #### RENA BREAUX, , 2776-04 ####[facility] ([id number])[address], [address], [place] [address]OT0 [Moles/Vol]22 mmol/L Rtlxow13-18IjsDgndvy Lynn HospitalComment on above:Performed By: #### RENA BREAUX, , 2776-04 ####[facility] ([id number])[address], [address], [place] [address]Hwerldaafs [Mass/Vol]2.31 mg/dLHigh0.40-1.00 ProMUniversity [facility]als [facility] HospitalComment on above:Result Comment: METHOD TRACEABLE TO IDMS STANDARDPerformed By: #### RENA BREAUX, , 2776-04 ####[facility] ([id number])[address] [address], [place] [address]WYS/1.73 sq M.predicted among non-blacks MDRD (S/P/Bld) [Vol rate/Area]23 mL/min/{1.73_m2} Low>59[facility] HospitalComment on above:Result Comment: Reported eGFR is based on theCKD-EPI 2020 equation that doesnot use a race coefficient.Performed By: #### RENA BREAUX, , 2776-04 ####[facility] ([id number])[address] [address], [place] [address]Jxnlxso [Mass/Vol]94 mg/dL Jucxes25-35KqyQnxcyz [place] HospitalComment on above:Performed By: #### RENA BREAUX, , 2776-04 ####[facility] ([id number])[address], [address], [place] [address]Rmeloxhkm [Moles/Vol]3.2 mmol/LLow3.5-5.0 [facility] HospitalComment on above:Performed By: #### RENA BREAUX, , 2776-04 ####[facility] ([id number])[address] [address] [place] [address]Pjusmuj [Mass/Vol]7.5 g/dLNormal6.0-8.0[facility] HospitalComment on above:Performed By: #### RENA BREAUX, , 2776-04 ####[facility] ([id number])[address] [address], [place] [address]Vbtsci [Moles/Vol]137 mmol/FNxwuza177-085NgwPatpid [place] HospitalComment on above:Performed By: #### RENA BREAUX, , 2776-04 ####[facility] ([id number])[address], [address], [place] [address]Ncqr nitrogen [Mass/Vol]63 mg/dLHigh5-27ProRegency Hospital CompanyComment on above:Performed By: #### RENA BREAUX, , 2776-04 ####[facility] ([id number])[address], [place] [address]DM SWALLOW MOTILITY FUNCTIONon 68-58-4918KO SWALLOW MOTILITY FUNCTIONNormalProRegency Hospital Company MAGNESIUMon 09-24-1296Qjdymwjhf [Mass/Vol]1.9 mg/dLNormal1.8-2.6ProRegency Hospital CompanyComment on above:Performed By: #### RENA BREAUX, , 2776-04 ####[facility] ([id number])[address], [address] [place] [address]Tuulzzohv Ionized ISE (Bld) [Moles/Vol]on 59-40-0949Bxfzycqvh [Moles/Vol] 0.73 mmol/LNormal0.45-0.74ProRegency Hospital CompanyComment on above:Result Comment: NEW REFERENCE RANGEPerformed By: #### 14694-1 ####[facility] ([id number])[address] [address], [place] [address]NVBSSMFYERtx 97-56-2250Iojaxibnf [Mass/Vol]4.5 mg/dLNormal2.4-4.9[facility] Comment on above:Performed By: #### RENA BREAUX, , 1 ####[facility] ([id number])[address] [address] POTASSIUMon 56-10-0583Gtbuaoiuu [Moles/Vol]4.3 mmol/LNormal3.5-5.0[facility] HospitalComment on above:Performed By: #### 2823-3 ####[facility] ([id number])[address] [place] [address]Pxjwngulv [Moles/Vol]3.5 mmol/LNormal3.5-5.0[facility] HospitalComment on above: Performed By: #### 2823-3 ####[facility] ([id number])[address], [place] [address]XH CHEST 1 VWon 49-17-8069KX CHEST 1 VW NormalProMedica Lynn HospitalARTERIAL BLOOD GASon 33-54-5205MWQVL'S TESTNormal [facility] Lynn HospitalComment on above:Performed By: #### ABG ####[facility] ([id number])[address] [place], [place] [address]GBXQ,DEFICIT5.0 MMOL/LHigh0.0-2.0[facility] HospitalComment on above:Performed By: #### ABG ####[facility] ([id number])[address] [place] [address] Body rqexvwxzxjs04.6 [degF]Kqkljy05.0[facility] Lynn HospitalComment on above: Performed By: #### ABG ####[facility] ([id number])[address] [place], [place] [address]PYF5 (Bld) [Moles/Vol]19.6 mmol/KKqh09-30OezPmssei Lynn HospitalComment on above:Performed By: #### ABG ####[facility] ([id number])[address] [place], [place] [address]AWYX. O2 CONC.40 %NormalProMedica Lynn HospitalComment on above:Performed By: #### ABG ####[facility] ([id number])[address] [facility], [place] [address]Hiitij (Bld) [Partial pressure]173 mm[Hg]Skfj26-999OjqXmdczj Lynn HospitalComment on above:Performed By: #### ABG ####[facility] ([id number])[address] [facility] SYSTEM[facility]yn[facility], [place] [address]Bbrina saturation in Reoto246.0 %Normal>90Pro[facility] Lynn HospitalComment on above:Performed By: #### ABG ####[facility] ([address] [place] [address])[address] [facility], [place] [address]WDJJAC SOURCEVentNormalProMedica Lynn HospitalComment on above:Performed By: #### ABG ####[facility] ([id number])[address] [facility] SYSTEM[facility] [place] [address]XVS615.3 WQPOZoc72-83 [facility] Lynn HospitalComment on above:Performed By: #### ABG ####[facility] ([address] [place] [address])[address]141 [facility], [place] [address]nR (Bld)7.378 [pH]Normal7.350-7.450Pro[facility]ica Lynn HospitalComment on above:Performed By: #### ABG ####[facility] ([address] [place] [address])[address]141 [facility], [place] [address]WOLMPC SITEALineNormalProMedica Lynn HospitalComment on above:Performed By: #### ABG ####[facility] ([address] [place] [address])[address]141 [facility], [place] [address]LLWCAR TYPEARTERIALNormalProMedica Lynn HospitalComment on above: Performed By: #### ABG ####[facility] ([id number])[address] [facility] SYSTEM[facility], [place] [address]KUJ AND AUTO DIFFon 72-95-0020KDEKVLRL BASOPHIL0.0 X10E9/L Normal0.0-0.2[facility] Lynn HospitalComment on above:Performed By: #### CBCRENA Alvarado, , 2776-04 ####[facility] ([id number])[address], [place] [address]HSRACWAO NEUTROPHIL5.7 X10E9/LNormal1.5-6.6 ProMRegency Hospital Cleveland EastComment on above:Performed By: #### CBCChristiano CMP, , 2776-04 ####[facility] ([id number])[address], [place] [address]Kojbpiuqb/100 WBC (Bld)0.7 %[facility] Comment on above:Performed By: #### RENA BREAUX, , 2776-04 ####[facility] ([id number])[address] [address] Eosinophils (Bld) [#/Vol]0.0 10*3/uLNormal0.0-0.4[facility] Comment on above:Performed By: #### RENA BREAUX, , 2776-04 ####[facility] ([id number])[address] [address] [place] [address] Eosinophils/100 WBC (Bld)0.0 %NormalOhioHealth Doctors HospitalComment on above: Performed By: #### CBCChristiano CMP, , 2776-04 ####[facility] ([id number])[address] [address] [place] [address]Zwtqgkunqgt distribution width (RBC) [Ratio]17.3 %High11.5-15.0OhioHealth Doctors HospitalComment on above: Performed By: #### CBCA, CMP, , 2776-04 ####[facility] ([id number])[address] [address], [place] [address]Etcdoodrtw (Bld) [Volume fraction]25.2 %Nin08-49NufEgojrx Lynn HospitalComment on above:Performed By: #### CBCChristiano, CMP, , 2776-04 ####[facility] ([id number])[address], [address], [place] [address]Yyegsbodin (Bld) [Mass/Vol] 8.5 g/dLLow11.7-15.5[facility] HospitalComment on above:Performed By: #### CBCA, CMP, , 2776-04 ####[facility] ([id number])[address], [address], [place] [address]Fuqsljbkywr (Bld) [#/Vol]0.8 10*3/uLLow 1.0-3.5[facility] HospitalComment on above:Performed By: #### CBCA, CMP, , 2776-04 ####[facility] ([id number])[address], [address], [place] [address]Cswbhjrfaet/100 WBC (Bld)11.1 %NormalProMedica Carney HospitalComment on above:Performed By: #### CBCA, CMP, , 2776-04 ####[facility] ([id number])[address], [address], [place] [address]FAI (RBC) [Entitic mass]32.0 yoRumnqe69-64HwlAsmctj Lynn HospitalComment on above:Performed By: #### CBCA, CMP, , 2776-04 ####[facility] ([id number])[address], [address], [place] [address]MEYH (RBC) [Mass/Vol]33.7 g/zMFzbvdu30-12QvsByseez Lynn HospitalComment on above: Performed By: #### CBCA, CMP, , 2776-04 ####[facility] ([id number])[address], [address], [place] [address]YUC (RBC) [Entitic vol]95 cOLrexrm43-990PrrFujsah Carney HospitalComment on above:Performed By: #### CBCA, CMP, , 2776-04 ####[facility] ([id number])[address], [address], [place] [address]Bamygzgwj (Bld) [#/Vol]0.3 10*3/uLNormal0-0.9 [facility] Carney HospitalComment on above:Performed By: #### CBCA, CMP, , 2776-04 ####[facility] ([id number])[address], [address], [place] [address]Yklqbbxle/100 WBC (Bld)4.8 %NormalProLouis Stokes Cleveland Va Medical Centerca [facility] Hospital Comment on above:Performed By: #### CBCA, CMP, , 2776-04 ####[facility] ([id number])[address], [address] [address] Neutrophils/100 WBC (Bld)83.4 %NormalProMedica Carney HospitalComment on above: Performed By: #### CBCA, CMP, , 2776-04 ####[facility] ([id number])[address], [address], [place] [address]Sflduhas mean volume (Bld) [Entitic vol]7.2 fLNormal7-12ProMedica Lynn HospitalComment on above:Performed By: #### CBCA, CMP, , 2776-04 ####[facility] ([id number])[address], [address], [place] [address]Kkltasynt (Bld) [#/Vol]419 10*3/aYObzlua601-995TgvZkgrtr Lynn HospitalComment on above:Performed By: #### CBCA, CMP, , 2776-04 ####[facility] ([id number])[address], [address], [place] [address]DQL COUNT2.66 X10E12/LLow3.80-5.20[facility] HospitalComment on above:Performed By: #### RENA BREAUX, , 2776-04 ####[facility] ([id number])[address], [address], [place] [address]WFQ (Bld) [#/Vol]6.8 10*3/uLNormal4.0-11.0ProRegency Hospital CompanyComment on above:Performed By: #### RENA BREAUX, , 2776-04 ####[facility] ([id number])[address], [address] [place] [address]FHQTPHYBLDEUM METABOLIC PANELon 14-71-2477Ctkgnub [Mass/Vol]3.6 g/dLNormal3.2-5.3PFirelands Regional Medical Center HospitalComment on above:Performed By: #### RENA BREAUX, , 2776-04 ####[facility] ([id number])[address], [address] [address]YTH [Catalytic activity/Vol]66 U/VYqvduw00-590QhsLmeric [place] [facility] Comment on above:Performed By: #### RENA BREAUX, , 2776-04 ####[facility] ([id number])[address], [address], [place] [address]TQX [Catalytic activity/Vol]4 U/LNormal0-31PKettering Health Behavioral Medical CenterComment on above:Performed By: #### RENA BREAUX, , 2776-04 ####[facility] ([id number])[address], [address], [place] [address]Fekdm gap [Moles/Vol]18 mmol/LHigh5-15ProMedica Lynn HospitalComment on above:Performed By: #### RENA BREAUX, , 2776-04 ####[facility] ([id number])[address], [address], [place] [address]DFF [Catalytic activity/Vol]9 U/LNormal0-41 [facility]ney HospitalComment on above:Performed By: #### RENA BREAUX, , 2776-04 ####[facility] ([id number])[address], [address], [place] [address]Aijakseoy [Mass/Vol]0.8 mg/dLNormal0.3-1.2[facility] HospitalComment on above:Performed By: #### RENA BREAUX, , 2776-04 ####[facility] ([id number])[address], [address], [place] [address]Wxdnycb [Mass/Vol]10.4 mg/dLNormal8.5-10.5[facility] HospitalComment on above:Performed By: #### RENA BREAUX, , 2776-04 ####[facility] ([id number])[address], [address], [place] [address]Dxhkbmoc [Moles/Vol]96 mmol/FZef92-284OegVokchj Lynn HospitalComment on above:Performed By: #### RENA BREAUX, , 2776-04 ####[facility] ([id number])[address], [address], [place] [address]NH7 [Moles/Vol]22 mmol/L Vdzoww40-86RkxCgsboh [place] HospitalComment on above:Performed By: #### RENA BREAUX, , 2776-04 ####[facility] ([id number])[address], [address], [place] [address]Ypczalcibw [Mass/Vol]2.94 mg/dLHigh0.40-1.00 [facility]ney HospitalComment on above:Result Comment: METHOD TRACEABLE TO IDMS STANDARDPerformed By: #### RENA BREAUX, , 2776-04 ####[facility] ([id number])[address] [address], [place] [address]MPW/1.73 sq M.predicted among non-blacks MDRD (S/P/Bld) [Vol rate/Area]18 mL/min/{1.73_m2} Low>59ProMedica Lynn HospitalComment on above:Result Comment: Reported eGFR is based on theCKD-EPI 2020 equation that doesnot use a race coefficient.Performed By: #### RENA BREAUX, , 2776-04 ####[facility] ([id number])[address] [address], [place] [address]Xxzilty [Mass/Vol]125 mg/dL Uqom18-88HbpKxamvo Carney HospitalComment on above:Performed By: #### RENA BREAUX, , 2776-04 ####[facility] ([id number])[address] [address], [place] [address]Gqchisbak [Moles/Vol]3.9 mmol/LNormal3.5-5.0ProLouis Stokes Cleveland Va Medical Centerca Carney HospitalComment on above:Performed By: #### RENA BREAUX, , 2776-04 ####[facility] ([id number])[address] [address], [place] [address]Fwuxhla [Mass/Vol]7.0 g/dLNormal6.0-8.0ProMedica Lynn HospitalComment on above:Performed By: #### RENA BREAUX, , 2776-04 ####[facility] ([id number])[address] [address], [place] [address]Zvgszd [Moles/Vol]136 mmol/GKkurhg061-904HnyIfjzkt Lynn HospitalComment on above: Performed By: #### RENA BREAUX, , 2776-1 ####[facility] ([id number])[address], [address], [place] [address]Gncb nitrogen [Mass/Vol]105 mg/dLHigh5-27ProMedica Lynn HospitalComment on above:Performed By: #### RENA BREAUX, , 2776-04 ####[facility] ([id number])[address], [address], [place] [address]UHCDYQCAVar 61-86-3383Nbgkzvklw [Mass/Vol]2.3 mg/dLNormal1.8-2.6ProMedica Lynn HospitalComment on above:Performed By: #### RENA BREAUX, , 2776-04 ####[facility] ([id number])[address], [address], [place] [address]ZUWFONJIXYgq 82-63-4726Qnkpxqury [Mass/Vol] 7.0 mg/dLHigh2.4-4.9[facility] Lynn HospitalComment on above:Performed By: #### RENA BREAUX, , 2776-1 ####[facility] ([id number])[address], [address], [place] [address]OV CHEST 1 VWon 78-27-3780QY CHEST 1 VW NormalProLouis Stokes Cleveland Va Medical Centerca Carney HospitalARTERIAL BLOOD GASon 49-83-7264CAPTU'S TESTNormal [facility]ica Lynn HospitalComment on above:Performed By: #### ABG ####[facility] ([id number])[address] [facility], [place] [address]QCIT,DEFICIT7.0 MMOL/LHigh0.0-2.0ProMedica Lynn HospitalComment on above:Performed By: #### ABG ####[facility] ([id number])[address] [place] [address] Body ewpiakvtdwl70.6 [degF]Shwbbx39.0ProMedica Lynn HospitalComment on above: Performed By: #### ABG ####[facility] ([id number])[address] [facility], [place] [address]USL4 (Bld) [Moles/Vol]18.8 mmol/PSbo72-15AidYmugod Lynn HospitalComment on above:Performed By: #### ABG ####[facility] ([id number])[address] [place], [place] [address]SCCL. O2 CONC.40 %NormalProMedica Lynn HospitalComment on above:Performed By: #### ABG ####[facility] ([id number])[address] [facility], [place] [address]Yckfcd (Bld) [Partial pressure]115 mm[Hg]Sjmx34-235AbxIlhemd Lynn HospitalComment on above:Performed By: #### ABG ####[facility] ([address] [place] [address])[address] [facility] [place] [place] [address]Aasuyo saturation in Blood98.0 %Normal>90ProMedica Carney HospitalComment on above:Performed By: #### ABG ####[facility] ([id number])[address] [facility] [place], [place] [address]DAGVZP SOURCEVentNormalProMedica Lynn HospitalComment on above:Performed By: #### ABG ####[facility] ([id number])[address] [facility] [place], [place] [address]WZH576.3 JLLDIjmmcj09-25 [facility] HospitalComment on above:Performed By: #### ABG ####[facility] ([id number])[address], [place] [address]oX (Bld)7.288 [pH]Low7.350-7.450ProMedica Lynn HospitalComment on above:Performed By: #### ABG ####[facility] ([address] [place] [address])[address] [place] [address] SAMPLE SITEALineNormalProLouis Stokes Cleveland Va Medical Centerca Carney HospitalComment on above:Performed By: #### ABG ####[facility] ([address] [place] [address])[address] [place], [place] [address]EEKVQK TYPEARTERIALNormalProMedica Carney HospitalComment on above: Performed By: #### ABG ####[facility] ([address] [place] [address])[address] [place], [place] [address]ZDEYL'S TESTNormalProLouis Stokes Cleveland Va Medical Centerca Carney HospitalComment on above: Performed By: #### ABG ####[facility] ([address] [place] [address])[address] [place], [place] [address]ZPEW,DEFICIT6.0 MMOL/LHigh0.0-2.0ProLouis Stokes Cleveland [facility] Medical Centerca [facility] Comment on above:Performed By: #### ABG ####[facility] ([address] [place] [address])[address] [place], [place] [address]Anue bmozlldvxug45.6 [degF]Normal 37.0ProLouis Stokes Cleveland Va Medical Centerca Carney HospitalComment on above:Performed By: #### ABG ####[facility] ([address] [place] [address])[address] [place], [place] [address]FXB9 (Bld) [Moles/Vol]20.7 mmol/WTkd33-95MmmQhymwb Carney HospitalComment on above: Performed By: #### ABG ####[facility] ([address] [place] [address])[address] [place], [place] [address]XXYW. O2 CONC.40 %NormalProMedica Carney HospitalComment on above:Performed By: #### ABG ####[facility] ([address] [place] [address])[address] [place], [place] [address]Dtgldr (Bld) [Partial pressure]94 mm[Hg]Xmmavj64-188 ProMgreene county hospitala Carney HospitalComment on above:Performed By: #### ABG ####[facility] ([address] [place] [address])[address] [place], [place] [address]Unoant saturation in Blood96.0 %Normal>90ProMedica Carney HospitalComment on above: Performed By: #### ABG ####[facility] ([address] [place] [address])[address] [place], [place] [address]CYYKUB SOURCEVentNormalProMedica Carney HospitalComment on above:Performed By: #### ABG ####[facility] ([address] [place] [address])[address] [place], [place] [address]CWY041.7 GNCJFggsva49-60SfrYvghpq [facility] Comment on above:Performed By: #### ABG ####[facility] ([address] [place] [address])[address] [place], [place] [address]tI (Bld)7.275 [pH]Low7.350-7.450 [facility] HospitalComment on above:Performed By: #### ABG ####[facility] ([address] [place] [address])[address] [place], [place] [address]KVZVUS SITE ALineNormalProMedica Carney HospitalComment on above:Performed By: #### ABG ####[facility] ([address] [place] [address])[address] [place] [address] SAMPLE TYPEARTERIALNormalProMedica Carney HospitalComment on above:Performed By: #### ABG ####[facility] ([address] [place] [address])[address] [place], [place] [address]KFD AND AUTO DIFFon 01-35-6306GYHDDUWZ BASOPHIL0.0 X10E9/LNormal0.0-0.2 ProMgreene county hospitala Carney HospitalComment on above:Performed By: #### CBCA, CMP, , 2776-04 ####[facility] ([id number])[address], [address], [place] [address]PRFGLOXL NEUTROPHIL8.3 X10E9/LHigh1.5-6.6[facility] HospitalComment on above:Performed By: #### CBCChristiano, CMP, , 2776-04 ####[facility] ([id number])[address], [address], [place] [address]Utsjuskvg/100 WBC (Bld)0.4 %NormalProGenesis Hospital HospitalComment on above:Performed By: #### RENA BREAUX, , 2776-04 ####[facility] ([id number])[address], [address] [place] [address]Fouoxqbyapn (Bld) [#/Vol]0.0 10*3/uLNormal0.0-0.4[facility] HospitalComment on above: Performed By: #### RENA BREUAX, , 2776-04 ####[facility] ([id number])[address], [address], [place] [address]Gykcogbveai/100 WBC (Bld) 0.3 %NormalProGenesis Hospital HospitalComment on above:Performed By: #### CBCRENA Alvarado, , 2776-04 ####[facility] ([id number])[address], [address], [place] [address]Iemtagywniz distribution width (RBC) [Ratio]17.9 %High11.5-15.0[facility] HospitalComment on above:Performed By: #### CBCA, CMP, , 2776-04 ####[facility] ([id number])[address], [address], [place] [address]Uimexgunwb (Bld) [Volume fraction]25.6 %Low 35-47Pro[facility]ica Lynn HospitalComment on above:Performed By: #### CBCChristiano, CMP, , 2776-04 ####[facility] ([id number])[address], [address], [place] [address]Kctvcmbnxo (Bld) [Mass/Vol]8.4 g/dLLow11.7-15.5 [facility] HospitalComment on above:Performed By: #### CBCA, CMP, , 2776-04 ####[facility] ([id number])[address], [address], [place] [address]Skgdvejunxx (Bld) [#/Vol]0.4 10*3/uLLow1.0-3.5[facility] HospitalComment on above:Performed By: #### CBCChristiano, CMP, , 2776-04 ####[facility] ([id number])[address], [address], [place] [address]Osmttaonssn/100 WBC (Bld)4.6 %NormalProMedica Lynn HospitalComment on above:Performed By: #### CBCChristiano, CMP, , 2776-04 ####[facility] ([id number])[address], [address] [place] [address]ILM (RBC) [Entitic mass]31.2 ndMrnkyp91-56ZwyDuhyjb Lynn HospitalComment on above:Performed By: #### CBCA, CMP, , 2776-04 ####[facility] ([id number])[address], [address], [place] [address]AFAS (RBC) [Mass/Vol]32.7 g/mKPvfzgd76-39PeqUivhrs Lynn HospitalComment on above:Performed By: #### CBCA, CMP, , 2776-04 ####[facility] ([id number])[address], [address], [place] [address]IFH (RBC) [Entitic vol]95 vIOoguzd98-908 [facility] HospitalComment on above:Performed By: #### CBCA, CMP, , 2776-04 ####[facility] ([id number])[address], [address], [place] [address]Bzxhnluqt (Bld) [#/Vol]0.2 10*3/uLNormal0-0.9Pro[facility] HospitalComment on above:Performed By: #### CBCA, CMP, , 2776-04 ####[facility] ([id number])[address], [address], [place] [address]Liuejbunx/100 WBC (Bld)2.2 %NormalProMedica Lynn HospitalComment on above:Performed By: #### CBCA, CMP, , 2776-04 ####[facility] ([id number])[address], [address], [place] [address]Pmoapnqrjdy/100 WBC (Bld)92.5 %NormalProMedica Lynn HospitalComment on above:Performed By: #### CBCA, CMP, , 2776-04 ####[facility] ([id number])[address], [address] [place] [address]Wmqgrzlk mean volume (Bld) [Entitic vol]7.2 fLNormal7-12Pro[facility] HospitalComment on above:Performed By: #### CBCA, CMP, , 2776-04 ####[facility] ([id number])[address], [address], [place] [address]Zgjwylmnu (Bld) [#/Vol]329 10*3/gNIwseuc276-907 [facility] HospitalComment on above:Performed By: #### CBCA, CMP, , 2776-04 ####[facility] ([id number])[address], [address], [place] [address]OSY COUNT2.69 X10E12/LLow3.80-5.20[facility] Comment on above:Performed By: #### ERNA BREAUX, , 2776-04 ####[facility] ([id number])[address], [address], [place] [address]ICZ (Bld) [#/Vol]9.0 10*3/uLNormal4.0-11.0ProRegency Hospital CompanyComment on above: Performed By: #### RENA BREAUX, , 2776-04 ####[facility] ([id number])[address] [address], [place] [address]BCMNTZCVBEYEL METABOLIC PANELon 66-77-8135Rzvnnrl [Mass/Vol]3.6 g/dLNormal3.2-5.3PKettering Health Behavioral Medical CenterComment on above:Performed By: #### RENA BREAUX, , 2776-04 ####[facility] ([id number])[address] [address], [place] [address]OFV [Catalytic activity/Vol]65 U/SXyljaj80-047UsmNqwknoOhioHealth Doctors Hospital Comment on above:Performed By: #### RENA BREAUX, , 2776-04 ####[facility] ([id number])[address], [address], [place] [address]KZE [Catalytic activity/Vol]6 U/LNormal0-31PKettering Health Behavioral Medical CenterComment on above:Performed By: #### NAMITA CMP, , 2776-04 ####[facility] ([id number])[address], [address], [place] [address]Fjsqe gap [Moles/Vol]15 mmol/LNormal5-15[facility] HospitalComment on above:Performed By: #### RENA BREAUX, , 2776-04 ####[facility] ([id number])[address], [address], [place] [address]XIW [Catalytic activity/Vol]10 U/LNormal0-41 [facility] HospitalComment on above:Performed By: #### RENA BREAUX, , 2776-04 ####[facility] ([id number])[address], [address], [place] [address]Iojnmbgwo [Mass/Vol]0.9 mg/dLNormal0.3-1.2[facility] HospitalComment on above:Performed By: #### RENA BREAUX, , 2776-04 ####[facility] ([id number])[address], [address], [place] [address]Uqamudj [Mass/Vol]10.0 mg/dLNormal8.5-10.5Pro[facility] HospitalComment on above:Performed By: #### RENA BREAUX, , 2776-04 ####[facility] ([id number])[address], [address], [place] [address]Cqjlcynj [Moles/Vol]98 mmol/GDnlrde12-082TmhKgqqfs Lynn HospitalComment on above: Performed By: #### RENA BREAUX, , 2776-04 ####[facility] ([id number])[address], [address], [place] [address]QW4 [Moles/Vol]20 mmol/LLow 22-32Pro[facility] HospitalComment on above:Performed By: #### RENA BREAUX, , 2776-04 ####[facility] ([id number])[address], [address], [place] [address]Evjekaofna [Mass/Vol]2.61 mg/dLHigh0.40-1.00[facility] HospitalComment on above:Result Comment: METHOD TRACEABLE TO IDMS STANDARDPerformed By: #### RENA BREAUX, , 2776-04 ####[facility] ([id number])[address] [address], [place] [address]HFW/1.73 sq M.predicted among non-blacks MDRD (S/P/Bld) [Vol rate/Area]20 mL/min/{1.73_m2} Low>59Pro[facility] HospitalComment on above:Result Comment: Reported eGFR is based on theCKD-EPI 2020 equation that doesnot use a race coefficient.Performed By: #### RENA BREAUX, , 2776-04 ####[facility] ([id number])[address] [address], [place] [address]Ughuawy [Mass/Vol]140 mg/dL Okbj14-27RxlCzgqef Lynn HospitalComment on above:Performed By: #### RENA BREAUX, , 2776-04 ####[facility] ([id number])[address] [address]demygamj [Moles/Vol]4.3 mmol/LNormal3.5-5.0ProLouis Stokes Cleveland Va Medical Centerca Carney HospitalComment on above:Performed By: #### RENA BREAUX, , 2776-04 ####[facility] ([id number])[address] [address], [place] [address]Pdjnfie [Mass/Vol]6.7 g/dLNormal6.0-8.0Pro[facility]ica [facility] HospitalComment on above:Performed By: #### RENA BREAUX, , 2776-04 ####[facility] ([id number])[address] [address], [place] [address]Fqsvyy [Moles/Vol]133 mmol/EYow525-006RcuLdhxal Carney HospitalComment on above: Performed By: #### RENA BREAUX, , 2776-04 ####[facility] ([id number])[address], [address] [place] [address]Vjac nitrogen [Mass/Vol]95 mg/dLHigh5-27[facility] HospitalComment on above:Performed By: #### RENA BREAUX, , 2776-04 ####[facility] ([id number])[address], [address] [place] [address]Xhtaxsb.ionized (Bld) [Mass/Vol]on 06-24-2024 IONIZED CALCIUM5.3 mg/dLNormal4.5-5.3[facility] HospitalComment on above: Performed By: #### 90528-4, 88442-8 ####[facility] ([id number])[address] [address]IKINKSNOEjm 06-24-2024 Magnesium [Mass/Vol]2.2 mg/dLNormal1.8-2.6[facility] HospitalComment on above:Performed By: #### RENA BREAUX, , 27710-08 ####[facility] ([id number])[address] [address]Kycveurlz Ionized ISE (Bld) [Moles/Vol]on 09-42-5293Btuxjkdrs [Moles/Vol]0.55 mmol/LNormal0.45-0.74 [facility]ney HospitalComment on above:Result Comment: NEW REFERENCE RANGE Performed By: #### 91239-9, 24342-7 ####[facility] ([id number])[address] [address]XDFRDHJNYPth 06-24-2024 Phosphate [Mass/Vol]6.2 mg/dLHigh2.4-4.9ProReg[facility] Hospital CompanyComment on above:Performed By: #### CBCA, CMP, , 2776-04 ####[facility] ([id number])[address], [address], [place] [address]RN CHEST 1 VWon 05-89-5501OC CHEST 1 VWNormalProMedica Guernsey Memorial HospitalXR CHEST 1 VWNormal ProMedicHighland District HospitalCBC AND AUTO DIFFon 72-72-0772VXKTQJPI BASOPHIL0.1 X10E9/LNormal0.0-0.2[facility] HospitalComment on above:Performed By: #### CBCA, CMP, , 2776-04 ####[facility] ([id number])[address], [address] [place] [address]JWMLDGLU NEUTROPHIL7.0 X10E9/LHigh1.5-6.6 [facility] HospitalComment on above:Performed By: #### CBCA, CMP, , 2776-04 ####[facility] ([id number])[address], [address] [place] [address]Xemqrpefp/100 WBC (Bld)1.0 %NormalOhioHealth Doctors Hospital Comment on above:Performed By: #### CBCA, CMP, , 2776-04 ####[facility] ([id number])[address], [address] [place] [address] Eosinophils (Bld) [#/Vol]0.3 10*3/uLNormal0.0-0.4[facility] Comment on above:Performed By: #### CBCA, CMP, , 2776-04 ####[facility] ([id number])[address], [address] [place] [address] Eosinophils/100 WBC (Bld)2.7 %NormalProMedica Lynn HospitalComment on above: Performed By: #### CBCA, CMP, , 2776-04 ####[facility] ([id number])[address], [address], [place] [address]Yyczzdiwtwl distribution width (RBC) [Ratio]18.6 %High11.5-15.0ProLouis Stokes Cleveland Va Medical Centerca Carney HospitalComment on above: Performed By: #### CBCA, CMP, , 2776-04 ####[facility] ([id number])[address], [address], [place] [address]Bhzyxystnf (Bld) [Volume fraction]23.7 %Die52-27VihLfvslx Carney HospitalComment on above:Performed By: #### CBCA, CMP, , 2776-04 ####[facility] ([id number])[address] [address], [place] [address]Mcheodxhuq (Bld) [Mass/Vol] 7.8 g/dLLow11.7-15.5[facility] Carney HospitalComment on above:Performed By: #### CBCA, CMP, , 2776-04 ####[facility] ([id number])[address] [address], [place] [address]Gzznmjdrymy (Bld) [#/Vol]1.2 10*3/uLNormal 1.0-3.5[facility] HospitalComment on above:Performed By: #### CBCA, CMP, , 2776-04 ####[facility] ([id number])[address] [address] [address]Pjjgrmcaety/100 WBC (Bld)12.1 %NormalProGenesis Hospital HospitalComment on above:Performed By: #### CBCA, CMP, , 2776-04 ####[facility] ([id number])[address], [address] [place] [address] 79062OUG (RBC) [Entitic mass]31.9 wgHypthn67-93RejEpdhkd Lynn HospitalComment on above:Performed By: #### CBCA, CMP, , 2776-04 ####[facility] ([id number])[address], [address] [place] [address] 74765BDSR (RBC) [Mass/Vol]33.1 g/xBElxdmg70-12VffJgdsfi Lynn HospitalComment on above: Performed By: #### CBCA, CMP, , 2776-04 ####[facility] ([id number])[address], [address] [place] [address] 78742UAR (RBC) [Entitic vol]96 nMUttlyx57-026ErlPrwnvo Lynn HospitalComment on above:Performed By: #### CBCA, CMP, , 2776-04 ####[facility] ([id number])[address], [address] [place] [address] 80558Ubmlqlsve (Bld) [#/Vol]1.4 10*3/uLHigh0-0.9 [facility] HospitalComment on above:Performed By: #### CBCA, CMP, , 2776-04 ####[facility] ([id number])[address], [address] [place] [address] 82325Dsumsvoos/100 WBC (Bld)13.9 %NormalProMedica Lynn Hospital Comment on above:Performed By: #### CBCA, CMP, , 2776-04 ####[facility] ([id number])[address], [address] [place] [address] Neutrophils/100 WBC (Bld)70.3 %NormalProMedica Lynn HospitalComment on above: Performed By: #### CBCA, CMP, , 2776-04 ####[facility] ([id number])[address], [address] [place] [address] 15555Lfxwrflr mean volume (Bld) [Entitic vol]7.5 fLNormal7-12[facility] HospitalComment on above:Performed By: #### NAMITA CMP, , 2776-04 ####[facility] ([id number])[address], [address] [place] [address] 45867Wzoprvofr (Bld) [#/Vol]244 10*3/lFDywxlh096-993IpnKjutvp [place] HospitalComment on above:Performed By: #### RENA BREAUX, , 2776-04 ####[facility] ([id number])[address], [address] [place] [address] 53291CHX COUNT2.46 X10E12/LLow3.80-5.20[facility] HospitalComment on above:Performed By: #### RENA BREAUX, , 2776-04 ####[facility] ([id number])[address], [address] [place] [address] 25640ZPG (Bld) [#/Vol]10.0 10*3/uLNormal4.0-11.0[facility] Hospital Comment on above:Performed By: #### RENA BREAUX, , 2776-04 ####[facility] ([id number])[address], [address] [place] [address] 68270 COMPREHENSIVE METABOLIC PANELon 97-39-5221Tqcfrwd [Mass/Vol]3.6 g/dLNormal 3.2-5.3PFirelands Regional Medical Center HospitalComment on above:Performed By: #### NAMITA, CMP, , 2776-04 ####[facility] ([id number])[address], [address] [place] [address] 44055IIH [Catalytic activity/Vol]68 U/PLmhmyl62-641UixXncvsd Lynn HospitalComment on above:Performed By: #### RENA BREAUX, , 2776-04 ####[facility] ([id number])[address], [address], [place] [address]QUZ [Catalytic activity/Vol]4 U/LNormal0-31[facility] Lynn HospitalComment on above:Performed By: #### NAMITA CMP, , 2776-04 ####[facility] ([id number])[address], [address], [place] [address]Mdgpy gap [Moles/Vol]13 mmol/LNormal5-15[facility] Lynn HospitalComment on above: Performed By: #### NAMITA CMP, , 2776-04 ####[facility] ([id number])[address], [address], [place] [address]BAK [Catalytic activity/Vol]12 U/LNormal0-41[facility] Lynn HospitalComment on above:Performed By: #### RENA BREAUX, , 2776-04 ####[facility] ([id number])[address], [address], [place] [address]Mysvlchxe [Mass/Vol]0.8 mg/dLNormal0.3-1.2Pro[facility]ica Lnyn HospitalComment on above:Performed By: #### NAMITA CMP, , 2776-04 ####[facility] ([id number])[address], [address], [place] [address]Uxshnan [Mass/Vol]9.7 mg/dLNormal8.5-10.5 [facility] HospitalComment on above:Performed By: #### NAMITA, CMP, , 2776-04 ####[facility] ([id number])[address], [address], [place] [address]Cgaxxwgl [Moles/Vol]101 mmol/VYaywna36-068FxuUvgmrn Lynn HospitalComment on above:Performed By: #### RENA BREAUX, , 2776-04 ####[facility] ([id number])[address], [address], [place] [address]GO0 [Moles/Vol]21 mmol/FXys06-26FctHztwfg Lynn HospitalComment on above: Performed By: #### RENA BERAUX, , 2776-04 ####[facility] ([id number])[address], [address], [place] [address]Xpcsbiwvok [Mass/Vol]2.08 mg/dLHigh0.40-1.00ProLouis Stokes Cleveland Va Medical Centerca Carney HospitalComment on above:Result Comment: METHOD TRACEABLE TO IDMS STANDARDPerformed By: #### RENA BREAUX, , 2776-04 ####[facility] ([id number])[address], [address], [place] [address]VSK/1.73 sq M.predicted among non-blacks MDRD (S/P/Bld) [Vol rate/Area]27 mL/min/{1.73_m2}Low>59[facility] HospitalComment on above:Result Comment: Reported eGFR is based on theCKD-EPI 2020 equation that doesnot use a race coefficient.Performed By: #### RENA BREAUX, , 2776-04 ####[facility] ([id number])[address], [address], [place] [address]Evifiei [Mass/Vol]103 mg/lJNmoy54-42EikVutepr Lynn HospitalComment on above:Performed By: #### RENA BREAUX, , 2776-04 ####[facility] ([id number])[address], [address], [place] [address]Yaklknjze [Moles/Vol]4.3 mmol/LNormal3.5-5.0[facility] Lynn HospitalComment on above:Performed By: #### NAMITA [facility], , 2776-04 ####[facility] ([id number])[address], [address] [place] [place] [address]Dkvrsvx [Mass/Vol]6.5 g/dLNormal6.0-8.0 [facility] HospitalComment on above:Performed By: #### NAMITA [facility], , 2776-04 ####[facility] ([id number])[address], [address] [place] [address]Typwtk [Moles/Vol]135 mmol/RIbxhmj452-070HraErddxj Lynn HospitalComment on above:Performed By: #### NAMITA [facility], , 2776-04 ####[facility] ([id number])[address], [address] [place] [address]Wozv nitrogen [Mass/Vol]73 mg/dLHigh5-27Pro[facility] HospitalComment on above:Performed By: #### RENA BREAUX, , 2776-04 ####[facility] ([id number])[address], [address], [place] [address]ONXpv 06-23-2024 Hematocrit (Bld) [Volume fraction]23.2 %Tkb57-67RdcBplbnl Carney HospitalComment on above:Performed By: #### HH ####[facility] ([id number])[address], [address] [address]Vldvoxukta (Bld) [Mass/Vol]7.7 g/dLLow 11.7-15.5[facility] HospitalComment on above:Performed By: #### HH ####[facility] ([id number])[address], [address] [address]Vzlvaiypeo (Bld) [Volume fraction]23.3 %Exw06-77QkpOqjqzk [facility] Comment on above:Performed By: #### HH ####[facility] ([id number])[address], [address] [place] [address]Mcczgozgjv (Bld) [Mass/Vol] 7.6 g/dLLow11.7-15.5Pro[facility] HospitalComment on above:Performed By: #### HH ####[facility] ([id number])[address], [address] [place] [address]TJGZDMSWVbc 61-14-2504Rrrdchvfx [Mass/Vol]2.2 mg/dLNormal 1.8-2.6ProLouis Stokes Cleveland Va Medical Centerca Carney HospitalComment on above:Performed By: #### NAMITA, CMP, 45777-5, 2777-1 ####[facility] ([id number])[address], [address] [place] [address]PGRYQGZMMWxd 72-85-3481Sfabiuexr [Mass/Vol]5.1 mg/dL High2.4-4.9Pro[facility] HospitalComment on above:Performed By: #### CBCChristiano, CMP, , 2777-1 ####[facility] ([id number])[address], [address], [place] [address]MY CHEST 1 VWon 56-22-4989WG CHEST 1 VWNormal ProMUniversity [facility] HospitalARTERIAL BLOOD GASon 83-67-2308NPCTG'S TESTNormal [facility] HospitalComment on above:Performed By: #### ABG ####[facility] ([id number])[address] [place], [place] [address]DLMP,DEFICIT5.0 MMOL/LHigh0.0-2.0[facility] HospitalComment on above:Performed By: #### ABG ####[facility] ([id number])[address] [place] [address] Body jjhicyrkhve80.6 [degF]Opzcwy70.0Pro[facility] Lynn HospitalComment on above: Performed By: #### ABG ####[facility] ([id number])[address] [place], [place] [address]TGX2 (Bld) [Moles/Vol]21.3 mmol/KLas87-99XcbHniwle Lynn HospitalComment on above:Performed By: #### ABG ####[facility] ([address] [place] [address])[address] [place], [place] [address]ESLF. O2 CONC.40 %NormalProMedica Lynn HospitalComment on above:Performed By: #### ABG ####[facility] ([address] [place] [address])[address]141 [place], [place] [address]Cgiajz (Bld) [Partial pressure]160 mm[Hg]Yklj50-210QmtSccewv Lynn HospitalComment on above:Performed By: #### ABG ####[facility] ([address] [place] [address])[address] [place], [place] [address]Rnkbdl saturation in Blood99.0 %Normal>90Pro[facility] HospitalComment on above:Performed By: #### ABG ####[facility] ([address] [place] [address])[address] [place], [place] [address]GGNMMW SOURCEVentNormalProMedica Lynn HospitalComment on above:Performed By: #### ABG ####[facility] ([address] [place] [address])[address] [place], [place] [address]CCL324.8 WODKVynggt12-93 [facility] HospitalComment on above:Performed By: #### ABG ####[facility] ([address] [place] [address])[address]141 [place], [place] [address]mM (Bld)7.286 [pH]Low7.350-7.450Pro[facility] HospitalComment on above:Performed By: #### ABG ####[facility] ([id number])[address] [place] [address] SAMPLE SITEALineNormalProLouis Stokes Cleveland Va Medical Centerca Carney HospitalComment on above:Performed By: #### ABG ####[facility] ([id number])[address] [place], [place] [address]HXOPII TYPEARTERIALNormalProGenesis Hospital HospitalComment on above: Performed By: #### ABG ####[facility] ([id number])[address] [place], [place] [address]EYO AND AUTO DIFFon 66-69-6472JMZQRSQQ BASOPHIL0.1 X10E9/L Normal0.0-0.2[facility] HospitalComment on above:Performed By: #### CBCA ####[facility] ([id number])[address] [facility], [address] [place] [address]ROWWNMBQ NEUTROPHIL6.5 X10E9/LNormal1.5-6.6[facility] Comment on above:Performed By: #### CBCA ####[facility] ([id number])0 [facility] [address] [place] [address]Qweyzuirk/100 WBC (Bld)1.3 %NormalOhioHealth Doctors HospitalComment on above:Performed By: #### CBCA ####[facility] ([id number])[address] [address] [place] [address]Qwfsiznbpav (Bld) [#/Vol]0.3 10*3/uLNormal0.0-0.4[facility] Comment on above:Performed By: #### CBCA ####[facility] ([id number])[address] [address] [place] [address]Cdrfufbphub/100 WBC (Bld) 2.9 %NormalAdams County Regional Medical Center HospitalComment on above:Performed By: #### CBCA ####[facility] ([id number])[address], [address], [place] [address]Bhqukeowrxr distribution width (RBC) [Ratio]18.8 %High11.5-15.0[facility] HospitalComment on above:Performed By: #### CBCA ####[facility] ([id number])[address], [address], [place] [address]Xqungjvrin (Bld) [Volume fraction]24.8 %Zjt29-81MyrTyblzu [place] HospitalComment on above: Performed By: #### CBCA ####[facility] ([id number])[address] [address], [place] [address]Llhsmfmeoc (Bld) [Mass/Vol]8.2 g/dLLow 11.7-15.5PFirelands Regional Medical Center HospitalComment on above:Performed By: #### CBCA ####[facility] ([id number])[address] [address], [place] [address]Yocblufdmly (Bld) [#/Vol]1.5 10*3/uLNormal1.0-3.5PKettering Health Behavioral [facility] Center Comment on above:Performed By: #### CBCA ####[facility] ([id number])[address] [address], [place] [address]Gborswelahp/100 WBC (Bld) 16.4 %NormalProGenesis Hospital HospitalComment on above:Performed By: #### CBCA ####[facility] ([id number])[address] [address], [place] [address]HVE (RBC) [Entitic mass]31.9 tzWckdet72-58IznGoumus [place] HospitalComment on above:Performed By: #### CBCA ####[facility] ([id number])[address], [address], [place] [address]THKF (RBC) [Mass/Vol]33.0 g/lBZjiutv62-02DhrGeksnm Lynn HospitalComment on above:Performed By: #### CBCA ####[facility] ([id number])[address], [address], [place] [address]ZRT (RBC) [Entitic vol]97 pIKxbhzt00-591VedVhpfvn Lynn HospitalComment on above:Performed By: #### CBCA ####[facility] ([id number])[address], [address], [place] [address]Oatirkrll (Bld) [#/Vol]1.0 10*3/uLHigh0-0.9[facility] HospitalComment on above:Performed By: #### CBCA ####[facility] ([id number])[address], [address], [place] [address]Iacgbxpom/100 WBC (Bld)10.3 %NormalProMedica [facility] Hospital Comment on above:Performed By: #### CBCA ####[facility] ([id number])[address], [address], [place] [address]Wzqzicbczwu/100 WBC (Bld) 69.1 %NormalProMedica Lynn HospitalComment on above:Performed By: #### CBCA ####[facility] ([id number])[address], [address] [place] [address]Zwnhdxnq mean volume (Bld) [Entitic vol]7.4 fLNormal7-12[facility] HospitalComment on above:Performed By: #### CBCA ####[facility] ([id number])[address], [address], [place] [address]Pkrrgdrfq (Bld) [#/Vol] 164 10*3/sQZrlkxd973-990AdyOdjiju Lynn HospitalComment on above:Performed By: #### CBCA ####[facility] ([id number])[address], [address] [place] [address]LPC COUNT2.57 X10E12/LLow3.80-5.20ProLouis Stokes [facility] Centerca [facility] Comment on above:Performed By: #### CBCA ####[facility] ([id number])[address], [address] [place] [address]FMW (Bld) [#/Vol]9.4 10*3/uLNormal4.0-11.0[facility] HospitalComment on above:Performed By: #### CBCA ####[facility] ([id number])[address], [address] [place] [address]MCDNCUYGXFHEJ METABOLIC PANELon 25-73-3647Emybsxn [Mass/Vol] 3.8 g/dLNormal3.2-5.3[facility] HospitalComment on above:Performed By: #### RENA, , 2777-1 ####[facility] ([id number])[address], [address], [place] [address]OWH [Catalytic activity/Vol]76 U/LNormal 39-130Pro[facility] HospitalComment on above:Performed By: #### CMP, , 2776- ####[facility] ([id number])[address], [address], [place] [address]MLD [Catalytic activity/Vol]4 U/LNormal0-31[facility] HospitalComment on above:Performed By: #### CMP, , 7- ####[facility] ([id number])[address], [address], [place] [address]Bvwnx gap [Moles/Vol]13 mmol/LNormal5-15ProLouis Stokes [facility] Medical Centerca Lynn HospitalComment on above: Performed By: #### CMP, , 2777-1 ####[facility] ([id number])[address], [address], [place] [address]XNE [Catalytic activity/Vol]17 U/LNormal0-41ProLouis Stokes Cleveland Va Medical Centerca Lynn HospitalComment on above:Performed By: #### RENA, , 2776-04 ####[facility] ([id number])[address], [address], [place] [address]Fpzhvgcpc [Mass/Vol]0.9 mg/dLNormal0.3-1.2 [facility] HospitalComment on above:Performed By: #### RENA, , ####[facility] ([id number])[address], [address], [place] [address]Iwrnzxa [Mass/Vol]9.4 mg/dLNormal8.5-10.5PKettering Health Behavioral Medical Center Comment on above:Performed By: #### RENA, , 2776-04 ####[facility] ([id number])[address], [address], [place] [address]Uatqdybk [Moles/Vol]101 mmol/TGmeyxr30-987OudDllhad Lynn HospitalComment on above: Performed By: #### RENA, , 2776-04 ####[facility] ([id number])[address], [address], [place] [address]UA3 [Moles/Vol]21 mmol/LLow 22-32PFirelands Regional Medical Center HospitalComment on above:Performed By: #### RENA, , 2776-04 ####[facility] ([id number])[address], [address], [place] [address]Hwdwsyqkzm [Mass/Vol]1.48 mg/dLHigh0.40-1.00ProChilton Medical Center Lynn HospitalComment on above:Result Comment: METHOD TRACEABLE TO IDMS STANDARD Performed By: #### RENA, , 2776-04 ####[facility] ([id number])[address], [address], [place] [address]IAZ/1.73 sq M.predicted among non-blacks MDRD (S/P/Bld) [Vol rate/Area]40 mL/min/{1.73_m2}Low>59 [facility] HospitalComment on above:Result Comment: Reported eGFR is based on theCKD-EPI 2020 equation that doesnot use a race coefficient.Performed By: #### RENA, , 2776-04 ####[facility] ([id number])[address] [place] [address], [place] [address]Nbouhqg [Mass/Vol]127 mg/aMBjng38-05 [facility] HospitalComment on above:Performed By: #### RENA, , ####[facility] ([id number])[address] [place] [address], [place] [address]Kpwrtmjwq [Moles/Vol]3.8 mmol/LNormal3.5-5.0[facility] Hospital Comment on above:Performed By: #### RENA, , 2776-04 ####[facility] ([id number])[address] [place] [address], [place] [address]Vimfulr [Mass/Vol]6.5 g/dLNormal6.0-8.0ProRegency Hospital CompanyComment on above: Performed By: #### RENA, , 2776-04 ####[facility] ([id number])[address] [place] [address], [place] [address]Ezebmw [Moles/Vol]135 mmol/BWebvjx876-165UpzZenqob [place] HospitalComment on above:Performed By: #### RENA, , 2776-04 ####[facility] ([id number])[address] [address], [place] [address]Lbcu nitrogen [Mass/Vol]40 mg/dLHigh5-27 [facility] HospitalComment on above:Performed By: #### [facility], [address]-0, 2777- 1 ####[facility] ([id number])[address], [place] [address]TUNru 99-28-2748Lezmjofmfj (Bld) [Volume fraction]24.4 %Lis86-36 [facility] HospitalComment on above:Performed By: #### HH ####[facility] ([id number])[address], [address] [address] Hemoglobin (Bld) [Mass/Vol]8.1 g/dLLow11.7-15.5[facility] HospitalComment on above:Performed By: #### HH ####[facility] ([id number])[address], [address] [address]Aunrfloawb (Bld) [Volume fraction]23.6 %Low 35-47[facility] HospitalComment on above:Performed By: #### HH ####[facility] ([id number])[address], [address] [address] Hemoglobin (Bld) [Mass/Vol]7.8 g/dLLow11.7-15.5[facility] HospitalComment on above:Performed By: #### HH ####[facility] ([id number])[address], [address] [address]Cwukudsgga (Bld) [Volume fraction]20.6 %Low 35-47[facility] HospitalComment on above:Performed By: #### HH ####[facility] ([id number])[address], [address] [address] Hemoglobin (Bld) [Mass/Vol]6.7 g/dLCritically low11.7-15.5[facility] HospitalComment on above:Performed By: #### HH ####[facility] ([id number])[address], [address] [address]JNQNUVHBEkj 06-22-2024 Magnesium [Mass/Vol]1.8 mg/dLNormal1.8-2.6[facility] HospitalComment on above:Performed By: #### CMP, 69224-0, 2777-1 ####[facility] ([id number])[address], [address], [place] [address]Ckzahsikp Ionized ISE (Bld) [Moles/Vol]on 71-35-2732Ivpltfulc [Moles/Vol]0.64 mmol/LNormal0.45-0.74 [facility] HospitalComment on above:Result Comment: NEW REFERENCE RANGE Performed By: #### 22844-5 ####[facility] ([id number])[address] [facility], [address] [place] [address]IJGGNJAUPCae 25-00-7209Ebthcjktc [Mass/Vol] 3.4 mg/dLNormal2.4-4.9ProLouis Stokes [facility] Medical Centerca [facility] HospitalComment on above:Performed By: #### CMP, 727[address]-2, 2777-1 ####[facility] ([id number])[address], [address] [place] [address]BMGXGGPPGxf 98-33-0806Jcheqrhfi [Moles/Vol] 4.0 mmol/LNormal3.5-5.0ProLouis Stokes Cleveland [facility] Medical Centerca [facility] HospitalComment on above:Performed By: #### 2823-3 ####[facility] ([id number])[address], [address], [place] [address]IM CHEST 1 VWon [id number] CHEST 1 VWNormalProMedica Carney HospitalARTERIAL BLOOD GASon 95-69-1971SHQMX'S TESTNormalProMedica Carney HospitalComment on above:Performed By: #### ABG ####[facility] ([id number])[address] [facility], [place] [address]ENKV,ZTKJRNH17.0 MMOL/LHigh0.0-2.0 [facility] Lynn HospitalComment on above:Performed By: #### ABG ####[facility] ([id number])[address], [place] [address]Tsvs .6 [degF]Hegjlf30.0ProMedica Lynn HospitalComment on above: Performed By: #### ABG ####[facility] ([address] [place] [address] [facility], [place] [address]QAD6 (Bld) [Moles/Vol]16.6 mmol/VLnw32-69ZovKsactr Lynn HospitalComment on above:Performed By: #### ABG ####[facility] ([address] [place] [address] [address] HOSPITALCyndie [address]VDT[place], [place] [address]KSNU. O2 CONC.40 %NormalProMedica Lynn HospitalComment on above:Performed By: #### ABG ####[facility] ([address] [place] [address])[address], [place] [address]Facepp (Bld) [Partial pressure]165 mm[Hg]Adef06-316SsoXjwcpe Lynn HospitalComment on above:Performed By: #### ABG ####[facility] ([address] [place] [address])[address], [place] [address]Nxmthm saturation in Blood99.0 %Normal>90ProMedica Lynn HospitalComment on above:Performed By: #### ABG ####[facility] ([address] [place] [address])[address], [place] [address]XKIPZF SOURCEVentNormalProMedica Lynn HospitalComment on above:Performed By: #### ABG ####[facility] ([address] [place] [address])[address] [facility] [place], [place] [address]JOV237.6 BQCDKvgcqx98-28 ProMedica Lynn HospitalComment on above:Performed By: #### ABG ####[facility] ([id number])[address] [place], [place] [address]iL (Bld)7.265 [pH]Low7.350-7.450ProRegency Hospital CompanyComment on above:Performed By: #### ABG ####[facility] ([id number])[address] [place] [address] SAMPLE SITEALineNormalProRegency Hospital CompanyComment on above:Performed By: #### ABG ####[facility] ([id number])[address] [place], [place] [address]AOCEWJ TYPEARTERIALNormalOhioHealth Doctors HospitalComment on above: Performed By: #### ABG ####[facility] ([id number])[address] [place], [place] [address]FNO AND AUTO DIFFon 87-98-8434ESPNWPLT BASOPHIL0.1 X10E9/L Normal0.0-0.2Pro[facility] Memorial HospitalComment on above:Performed By: #### CBCA, CMP, , 2777-1 ####[facility] ([id number])[address], [place] [address]XZVRUCJU NEUTROPHIL5.1 X10E9/LNormal1.5-6.6 [facility] Memorial HospitalComment on above:Performed By: #### CBCA, CMP, , 2777- ####[facility] ([id number])[address], [address], [place] [address]Cfmdcecxa/100 WBC (Bld)1.0 %NormalProRegency Hospital Company Comment on above:Performed By: #### CBCA, CMP, , 2777- ####[facility] ([id number])[address], [address] [address] Eosinophils (Bld) [#/Vol]0.2 10*3/uLNormal0.0-0.4ProLouis Stokes Cleveland Va Medical Centerca Car[facility] Hospital Comment on above:Performed By: #### CBCChristiano, CMP, , 2776-04 ####[facility] ([id number])[address] [address] Eosinophils/100 WBC (Bld)2.7 %NormalProLouis Stokes Cleveland Va Medical Centerca Carney HospitalComment on above: Performed By: #### CBCA, CMP, , 2776-04 ####[facility] ([id number])[address], [address], [place] [address]Mqsmebpyjto distribution width (RBC) [Ratio]17.5 %High11.5-15.0ProLouis Stokes Cleveland Va Medical Centerca Carney HospitalComment on above: Performed By: #### CBCChristiano, CMP, , 2776-04 ####[facility] ([id number])[address] [address], [place] [address]Wofwjuzgps (Bld) [Volume fraction]21.0 %Fzt54-27VruGiepfv Carney HospitalComment on above:Performed By: #### CBCA, CMP, , 2776-04 ####[facility] ([id number])[address] [address], [place] [address]Resploybyhb (Bld) [#/Vol] 1.0 10*3/uLNormal1.0-3.5ProMedica Carney HospitalComment on above:Performed By: #### CBCA, CMP, , 2776-04 ####[facility] ([id number])[address] [address], [place] [address]Dtsgvudkawm/100 WBC (Bld) 14.1 %NormalProMedica Lynn HospitalComment on above:Performed By: #### CBCA, CMP, , 2776-04 ####[facility] ([id number])[address], [address], [place] [address]WPQ (RBC) [Entitic mass]32.8 csQsxztt85-14 [facility]ica Lynn HospitalComment on above:Performed By: #### CBCA, CMP, , 2776-04 ####[facility] ([id number])[address], [address], [place] [address]MPQF (RBC) [Mass/Vol]33.1 g/oASghyux93-97JxxCrtunb Lynn HospitalComment on above:Performed By: #### CBCA, CMP, , 2776-04 ####[facility] ([id number])[address], [address] [place] [address]MFI (RBC) [Entitic vol]99 yNTylxmm14-774RmeCdbucf Lynn HospitalComment on above:Performed By: #### CBCA, CMP, , 2776-04 ####[facility] ([id number])[address], [address] [place] [address]Bvarucllm (Bld) [#/Vol]0.7 10*3/uLNormal0-0.9ProMedica Lynn HospitalComment on above:Performed By: #### CBCA, CMP, , 2776-04 ####[facility] ([id number])[address], [address], [place] [address]Nehqzbedq/100 WBC (Bld)10.5 %NormalProMedica Lynn HospitalComment on above:Performed By: #### CBCA, CMP, , 2776-04 ####[facility] ([id number])[address], [address] [place] [address]Sefjaohexik/100 WBC (Bld)71.7 %NormalProMedica Lynn HospitalComment on above:Performed By: #### CBCA, CMP, , 2776-04 ####[facility] ([id number])[address], [address], [place] [address]Wrjeohlm mean volume (Bld) [Entitic vol]7.9 fLNormal7-12ProMedica Lynn HospitalComment on above:Performed By: #### NAMITA CMP, , 2776-04 ####[facility] ([id number])[address], [address], [place] [address]Wdpbsbowy (Bld) [#/Vol]78 10*3/wSCkb846-180GeoRwtoxq Lynn HospitalComment on above:Performed By: #### NAMITA CMP, , 2776-04 ####[facility] ([id number])[address], [address] [place] [address]JKX COUNT2.12 X10E12/LLow3.80-5.20ProMedica Lynn HospitalComment on above:Performed By: #### NAMITA CMP, , 2776-04 ####[facility] ([id number])[address] [address], [place] [address]ELG (Bld) [#/Vol]7.1 10*3/uLNormal4.0-11.0 [facility] Lynn HospitalComment on above:Performed By: #### NAMITA, CMP, , 2776-04 ####[facility] ([id number])[address] [address], [place] [address]SFSAJZBQRUYEV METABOLIC PANELon 01-27-1587Jjqdotx [Mass/Vol] 3.7 g/dLNormal3.2-5.3ProMedica Lynn HospitalComment on above:Performed By: #### NAMITA, CMP, , 2776-04 ####[facility] ([id number])[address] [address], [place] [address]AQG [Catalytic activity/Vol]66 U/CCkaduy12-375MbhKudkgd Lynn HospitalComment on above: Performed By: #### RENA BREAUX, , 2776- ####[facility] ([id number])[address], [address], [place] [address]CXU [Catalytic activity/Vol]3 U/LNormal0-31ProMedica Lynn HospitalComment on above:Performed By: #### NAMITA CMP, , 2776-04 ####[facility] ([id number])[address], [address], [place] [address]Rwjcb gap [Moles/Vol]15 mmol/LNormal5-15ProMedica Lynn HospitalComment on above:Performed By: #### RENA BREAUX, , 2776-04 ####[facility] ([id number])[address], [address], [place] [address]OGI [Catalytic activity/Vol]11 U/LNormal0-41 [facility] Carney HospitalComment on above:Performed By: #### NAMITA CMP, , 2776-04 ####[facility] ([id number])[address], [address], [place] [address]Hrptvvmgd [Mass/Vol]0.7 mg/dLNormal0.3-1.2ProMedWooster Community Hospital HospitalComment on above:Performed By: #### NAMITA, CMP, , 2776-04 ####[facility] ([id number])[address], [address], [place] [address]Klmfaew [Mass/Vol]9.4 mg/dLNormal8.5-10.5ProMedgrove hill memorial hospital Lynn HospitalComment on above:Performed By: #### NAMITA CMP, , 2776-04 ####[facility] ([id number])[address], [address], [place] [address]Zgfrycvc [Moles/Vol]107 mmol/PJbuoei72-288GrfDjmpgg Carney HospitalComment on above: Performed By: #### RENA BREAUX, , 2776-04 ####[facility] ([id number])[address], [address], [place] [address]CB1 [Moles/Vol]18 mmol/LLow 22-32ProMedica Carney HospitalComment on above:Performed By: #### RENA BREAUX, , 2776-04 ####[facility] ([id number])[address], [address], [place] [address]Dwmnzncnzv [Mass/Vol]2.04 mg/dLHigh0.40-1.00[facility] HospitalComment on above:Result Comment: METHOD TRACEABLE TO IDMS STANDARDPerformed By: #### RENA BREAUX, , 2776-04 ####[facility] ([id number])[address], [address], [place] [address]LWY/1.73 sq M.predicted among non-blacks MDRD (S/P/Bld) [Vol rate/Area]27 mL/min/{1.73_m2} Low>59ProMedica Carney HospitalComment on above:Result Comment: Reported eGFR is based on theCKD-EPI 2020 equation that doesnot use a race coefficient.Performed By: #### RENA BREAUX, , 2776-04 ####[facility] ([id number])[address], [address], [place] [address]Fmxkiib [Mass/Vol]98 mg/dL Hxnevf04-08FrtHqbajo Carney HospitalComment on above:Performed By: #### RENA BREAUX, , 2776-04 ####[facility] ([id number])[address], [address], [place] [address]Lguwxloer [Moles/Vol]3.8 mmol/LNormal3.5-5.0 [facility] Lynn HospitalComment on above:Performed By: #### RENA BREAUX, , 2776-04 ####[facility] ([id number])[address], [address], [place] [address]Metsejz [Mass/Vol]6.1 g/dLNormal6.0-8.0ProMedica Lynn HospitalComment on above:Performed By: #### RENA BREAUX, , 2776-04 ####[facility] ([id number])[address], [address], [place] [address]Oinagk [Moles/Vol]140 mmol/YChxqdj400-790IhqSuilsn Lynn HospitalComment on above:Performed By: #### RENA BREAUX, , 2776-04 ####[facility] ([id number])[address], [address] [place] [address]Qgut nitrogen [Mass/Vol]55 mg/dLHigh5-27Pro[facility]ica Lynn HospitalComment on above:Performed By: #### RENA BREAUX, , 2776-04 ####[facility] ([id number])[address], [address], [place] [address]TWWpa 88-81-5570Nrkisjfnjv (Bld) [Volume fraction]21.9 %Sif80-52WjlIrwuqf Lynn HospitalComment on above: Performed By: #### HH ####[facility] ([id number])[address], [address] [address]Fvyfpbfcfu (Bld) [Mass/Vol]7.1 g/dLLow 11.7-15.5Pro[facility] Lynn HospitalComment on above:Performed By: #### HH ####[facility] ([id number])[address], [address] [address]Vezaknpuia (Bld) [Volume fraction]21.6 %Fzc64-13XfgYjmumm [facility] Comment on above:Performed By: #### HH ####[facility] ([id number])[address], [address] [place] [address]Nmikhbfqpb (Bld) [Mass/Vol] 7.0 g/dLLow11.7-15.5ProMedica Carney HospitalComment on above:Performed By: #### HH ####[facility] ([id number])[address], [address] [place] [address]Gkhxksuld By: #### RENA BREAUX, , 2777-1 ####[facility] ([id number])[address], [address] [place] [address] MAGNESIUMon 25-38-3702Naoujpxse [Mass/Vol]2.0 mg/dLNormal1.8-2.6ProLouis Stokes Cleveland Va Medical Centerca Carney HospitalComment on above:Performed By: #### RENA BREAUX, , 2776-1 ####[facility] ([id number])[address], [address] [place] [address]QBUZDLRZURnx 82-79-8118Jbnedmaxu [Mass/Vol]5.5 mg/dLHigh2.4-4.9[facility] HospitalComment on above:Performed By: #### RENA BREAUX, , 2776-1 ####[facility] ([id number])[address], [address], [place] [address]QFVGCOOHVrm 06-55-6939Ihwhhglls [Moles/Vol]4.0 mmol/LNormal3.5-5.0 [facility] Carney HospitalComment on above:Performed By: #### 2823-3 ####[facility] ([id number])[address], [address], [place] [address]PG CHEST 1 VWon 65-77-6253BQ CHEST 1 VWNormalProMedica Lynn HospitalARTERIAL BLOOD GASon 04-51-5058PQGDH'S TESTPassNormalProMedica Lynn HospitalComment on above:Performed By: #### ABG ####[facility] ([id number])[address] [facility] [place] [address]AYCP,DEFICIT6.0 MMOL/LHigh0.0-2.0Pro[facility]ica Carney HospitalComment on above:Performed By: #### ABG ####[facility] ([address] [place] [address])[address]141 [facility], [place] [address]Etpo lscucwsbcxl21.6 [degF]Normal 37.0ProMedica Carney HospitalComment on above:Performed By: #### ABG ####[facility] ([address] [place] [address]141 [place], [place] [address]XNQ3 (Bld) [Moles/Vol]20.1 mmol/HVxl69-50WbhYhienz Carney HospitalComment on above: Performed By: #### ABG ####[facility] ([address] [place] [address])[address] [facility] [place], [place] [address]EUGP. O2 CONC.40 %NormalProMedica Carney HospitalComment on above:Performed By: #### ABG ####[facility] ([address] [place] [address])[address]141 [facility], [place] [address]Lonafh (Bld) [Partial pressure]101 mm[Hg]Vwft61-430 [facility]ney HospitalComment on above:Performed By: #### ABG ####[facility] ([address] [place] [address])[address] [facility] [address]Cwslip saturation in Blood97.0 %Normal>90Pro[facility]ica Carney HospitalComment on above: Performed By: #### ABG ####[facility] ([id number])[address] [facility] [facility] [place] [address]UXMAHK SOURCEVentNormalProMedica Carney HospitalComment on above:Performed By: #### ABG ####[facility] ([id number])[address] [place], [place] [address]SZP730.3 USFNLvvqmr83-73WrnRemgwr [facility] Comment on above:Performed By: #### ABG ####[facility] ([id number])[address] [place], [place] [address]yQ (Bld)7.274 [pH]Low7.350-7.450 [facility] HospitalComment on above:Performed By: #### ABG ####[facility] ([id number])[address] [place], [place] [address]EXCQFW SITE ALineNormalProRegency Hospital CompanyComment on above:Performed By: #### ABG ####[facility] ([id number])[address] [place] [address] SAMPLE TYPEARTERIALNormalAdams County Regional Medical Center HospitalComment on above:Performed By: #### ABG ####[facility] ([id number])[address] [place], [place] [address]OVH AND AUTO DIFFon 37-04-9311TPHQUOIB BASOPHIL0.1 X10E9/LNormal0.0-0.2 [facility] HospitalComment on above:Performed By: #### CBCA, CMP, 54055-1, 2777-1 ####[facility] ([id number])[address], [address], [place] [address]FBXUVMKY NEUTROPHIL3.8 X10E9/LNormal1.5-6.6[facility] HospitalComment on above:Performed By: #### CBCA, CMP, 52594-6, 2777-1 ####[facility] ([id number])[address], [address], [place] [address]Dviceywqy/100 WBC (Bld)1.0 %NormalProMedica Lynn HospitalComment on above:Performed By: #### CBCA, CMP, , 2776-04 ####[facility] ([id number])[address], [address] [place] [address]Pmsatyaaasl (Bld) [#/Vol]0.3 10*3/uLNormal0.0-0.4[facility] HospitalComment on above: Performed By: #### CBCA, CMP, , 2776-04 ####[facility] ([id number])[address], [address], [place] [address]Wjxomyqxdjx/100 WBC (Bld) 4.8 %NormalProMedica Lynn HospitalComment on above:Performed By: #### CBCA, CMP, , 2776-04 ####[facility] ([id number])[address], [address], [place] [address]Ivebehririo distribution width (RBC) [Ratio]17.9 %High11.5-15.0Pro[facility] Lynn HospitalComment on above:Performed By: #### CBCA, CMP, , 2776-04 ####[facility] ([id number])[address] [address] [place] [address]Cdecqsrjsy (Bld) [Volume fraction]22.6 %Low 35-47Pro[facility] HospitalComment on above:Performed By: #### CBCA, CMP, , 2776-04 ####[facility] ([id number])[address], [address] [place] [address]Bneyqztryt (Bld) [Mass/Vol]7.2 g/dLLow11.7-15.5 [facility] HospitalComment on above:Performed By: #### CBCA, CMP, , 2776-04 ####[facility] ([id number])[address], [address], [place] [address]Jnfuylrhtde (Bld) [#/Vol]1.0 10*3/uLNormal1.0-3.5[facility] Carney HospitalComment on above:Performed By: #### CBCA, CMP, , 2776-04 ####[facility] ([id number])[address], [address], [place] [address]Onhrrloajns/100 WBC (Bld)17.1 %NormalProGenesis Hospital HospitalComment on above:Performed By: #### CBCA, CMP, , 2776-04 ####[facility] ([id number])[address], [address] [place] [address]VIS (RBC) [Entitic mass]31.8 owVcmxqa85-93JegOqksic Carney HospitalComment on above:Performed By: #### CBCA, CMP, , 2776-04 ####[facility] ([id number])[address], [address] [place] [address]YCZA (RBC) [Mass/Vol]31.8 g/iFIvk49-51VfeEnkymd [place] HospitalComment on above:Performed By: #### CBCA, CMP, , 2776-04 ####[facility] ([id number])[address], [address], [place] [address]MSR (RBC) [Entitic vol]100 qZJgdcby36-684 [facility]ney HospitalComment on above:Performed By: #### CBCA, CMP, , 2776-04 ####[facility] ([id number])[address], [address] [place] [address]Upnwqevqx (Bld) [#/Vol]0.7 10*3/uLNormal0-0.9Pro[facility] Carney HospitalComment on above:Performed By: #### CBCA, CMP, , 2776-04 ####[facility] ([id number])[address], [address], [place] [address]Gxrlaivlp/100 WBC (Bld)11.9 %NormalProLouis Stokes Cleveland Va Medical Centerca Carney HospitalComment on above:Performed By: #### CBCA, CMP, , 2776-04 ####[facility] ([id number])[address], [address], [place] [address]Hcwrqjrsqxl/100 WBC (Bld)65.2 %NormalProLouis Stokes Cleveland Va Medical Centerca Carney HospitalComment on above:Performed By: #### CBCA, CMP, , 2776-04 ####[facility] ([id number])[address], [address], [place] [address]Ucjjxayv mean volume (Bld) [Entitic vol]7.6 fLNormal7-12[facility]ney HospitalComment on above:Performed By: #### CBCA, CMP, , 2776-04 ####[facility] ([id number])[address], [address], [place] [address]Soshxnjqe (Bld) [#/Vol]58 10*3/vRWps035-138 [facility]ney HospitalComment on above:Performed By: #### CBCA, CMP, , 2776-04 ####[facility] ([id number])[address], [address], [place] [address]MFN COUNT2.26 X10E12/LLow3.80-5.20[facility] Comment on above:Performed By: #### CBCA, CMP, , 2776-04 ####[facility] ([id number])[address], [address], [place] [address]LWM (Bld) [#/Vol]5.8 10*3/uLNormal4.0-11.0[facility] HospitalComment on above: Performed By: #### NAMITA CMP, , 2776- ####[facility] ([id number])[address], [address], [place] [address]PHHOMSLIQBZOR METABOLIC PANELon 17-82-0355Qajttbs [Mass/Vol]3.6 g/dLNormal3.2-5.3[facility] HospitalComment on above:Performed By: #### NAMITA, CMP, , 2776- ####[facility] ([id number])[address], [address], [place] [address]RWM [Catalytic activity/Vol]61 U/ZJqpgqk26-710VqqShnevg [facility] Comment on above:Performed By: #### NAMITA CMP, , 2776-04 ####[facility] ([id number])[address], [address], [place] [address]WRP [Catalytic activity/Vol]U/LNormal0-31[facility] HospitalComment on above: Performed By: #### NAMITA, CMP, , 2776-04 ####[facility] ([id number])[address], [address], [place] [address]Qivog gap [Moles/Vol]10 mmol/LNormal5-15[facility] HospitalComment on above:Performed By: #### CLARIBELA, CMP, , 2776-04 ####[facility] ([id number])[address], [address], [place] [address]KIV [Catalytic activity/Vol]11 U/LNormal0-41 [facility] HospitalComment on above:Performed By: #### CBCA, CMP, , 2776- ####[facility] ([id number])[address], [address], [place] [address]Ptjrsrzie [Mass/Vol]0.8 mg/dLNormal0.3-1.2PFirelands Regional Medical Center HospitalComment on above:Performed By: #### RENA BREAUX, , 2776-04 ####[facility] ([id number])[address], [address], [place] [address]Ulwvhap [Mass/Vol]9.0 mg/dLNormal8.5-10.5PFirelands Regional Medical Center HospitalComment on above:Performed By: #### RENA BREAUX, , 2776-04 ####[facility] ([id number])[address], [address], [place] [address]Yonjlqmv [Moles/Vol]108 mmol/TMdazsw78-301FlqDnfpfw [facility] HospitalComment on above: Performed By: #### RENA BREAUX, , 2776-04 ####[facility] ([id number])[address] [address], [place] [address]ZO9 [Moles/Vol]21 mmol/LLow 22-32PFirelands Regional Medical Center HospitalComment on above:Performed By: #### RENA BREAUX, , 2776-04 ####[facility] ([id number])[address] [address], [place] [address]Nkwgdfoiul [Mass/Vol]1.44 mg/dLHigh0.40-1.00[facility] HospitalComment on above:Result Comment: METHOD TRACEABLE TO IDMS STANDARDPerformed By: #### RENA BREAUX, , 2776-04 ####[facility] ([id number])[address] [address], [place] [address]JIC/1.73 sq M.predicted among non-blacks MDRD (S/P/Bld) [Vol rate/Area]41 mL/min/{1.73_m2} Low>59Pro[facility] HospitalComment on above:Result Comment: Reported eGFR is based on theCKD-EPI 2020 equation that doesnot use a race coefficient.Performed By: #### RENA BREAUX, , 2776-04 ####[facility] ([id number])[address], [address] [place] [address]Pihfanp [Mass/Vol]82 mg/dL Qemveq23-57TfxNrtaiu [place] HospitalComment on above:Performed By: #### RENA BREAUX, , 2776-04 ####[facility] ([id number])[address], [address] [address]Goingaiwv [Moles/Vol]3.7 mmol/LNormal3.5-5.0 ProMRegency Hospital Cleveland EastComment on above:Performed By: #### RENA BREAUX, , 2776-04 ####[facility] ([id number])[address], [address], [place] [address]Vsthbzq [Mass/Vol]5.8 g/dLLow6.0-8.0[facility] Comment on above:Performed By: #### RENA BREAUX, , 2776-04 ####[facility] ([id number])[address] [address] [place] [address] Sodium [Moles/Vol]139 mmol/UOdlitn068-275OapGcanrx [place] HospitalComment on above:Performed By: #### RENA BREAUX, , 2776-04 ####[facility] ([id number])[address] [address], [place] [address]Kbvj nitrogen [Mass/Vol]30 mg/dLHigh5-27ProRegency Hospital CompanyComment on above:Performed By: #### RENA BREAUX, , 2776-04 ####[facility] ([id number])[address], [place] [address]XZKmt 39-74-7085Jwcdpnfjwj (Bld) [Volume fraction]21.9 %Fot23-32NqbMojzeu [place] HospitalComment on above: Performed By: #### HH ####[facility] ([id number])[address], [address] [address]Qecounqbgr (Bld) [Mass/Vol]7.2 g/dLLow 11.7-15.5PFirelands Regional Medical Center HospitalComment on above:Performed By: #### HH ####[facility] ([id number])[address], [address] [place] [address]Usnnjgwbwx (Bld) [Volume fraction]23.0 %Avi96-65PyeGmxcry [facility] Comment on above:Performed By: #### HH ####[facility] ([id number])[address] [address] [place] [address] 96046Dphjoagrte (Bld) [Mass/Vol] 7.5 g/dLLow11.7-15.5PFirelands Regional Medical Center HospitalComment on above:Performed By: #### HH ####[facility] ([id number])[address] [address] [place] [address] 05095Capiwku (P mikey) [Moles/Vol]on 67-64-6345FUHXDZO W/REFLEX1.4 mmol/LNormal0.4-2.0[facility] HospitalComment on above:Result Comment: Result did not trigger repeat Lactate,re-order if needed.Performed By: #### 19555-7 ####[facility] ([id number])[address] [address] [place] [address] 52079AQHBHWKBAkw 27-63-6729Jjmvazgqg [Mass/Vol]2.1 mg/dLNormal 1.8-2.6[facility] HospitalComment on above:Performed By: #### CBCA, CMP, 41733-1, 2777-1 ####[facility] ([id number])[address], [address], [place] [address]CKRZFZROQRii 55-75-9238Njloypynj [Mass/Vol]4.3 mg/dL Normal2.4-4.9[facility] HospitalComment on above:Performed By: #### CBCA, CMP, , 2776-04 ####[facility] ([id number])[address], [address], [place] [address]HU CHEST 1 VWon 12-18-9252TV CHEST 1 VWNormal ProMRegency Hospital Cleveland EastCB AND AUTO DIFFon 41-75-9842BIEVWUSF BASOPHIL0.1 X10E9/LNormal0.0-0.2PKettering Health Behavioral Medical CenterComment on above:Performed By: #### CBCA CMP, , 2776-04 ####[facility] ([id number])[address], [address] [place] [address] 99280DMCFBXFR NEUTROPHIL3.5 X10E9/LNormal1.5-6.6 [facility] HospitalComment on above:Performed By: #### CBCA, CMP, , 2776-04 ####[facility] ([id number])[address] [address] [place] [address]60Fbgtdloaw/100 WBC (Bld)1.2 %NormalOhioHealth Doctors Hospital Comment on above:Performed By: #### CBCA, CMP, , 2776-04 ####[facility] ([id number])[address], [address] [place] [address]71 Eosinophils (Bld) [#/Vol]0.3 10*3/uLNormal0.0-0.4[facility] Comment on above:Performed By: #### CBCA, CMP, , 2776-04 ####[facility] ([id number])[address] [address], [place] [address] Eosinophils/100 WBC (Bld)4.7 %NormalProLouis Stokes Cleveland Va Medical Centerca Carney HospitalComment on above: Performed By: #### CBCChristiano, CMP, , 2776-04 ####[facility] ([id number])[address], [address], [place] [address]Appxhqgxgvc distribution width (RBC) [Ratio]17.6 %High11.5-15.0ProLouis Stokes Cleveland Va Medical Centerca Carney HospitalComment on above: Performed By: #### CBCA, CMP, , 2776-04 ####[facility] ([id number])[address] [address], [place] [address]Bjsowlmtjm (Bld) [Volume fraction]22.5 %Cjy95-67UixDhpsws [place] HospitalComment on above:Performed By: #### CBCChristiano, CMP, , 2776-04 ####[facility] ([id number])[address] [address], [place] [address]Kbfmyyswvk (Bld) [Mass/Vol] 7.4 g/dLLow11.7-15.5PFirelands Regional Medical Center HospitalComment on above:Performed By: #### CBCA, CMP, , 2776-04 ####[facility] ([id number])[address] [address], [place] [address]Lfhbfpkmdvl (Bld) [#/Vol]1.2 10*3/uLNormal 1.0-3.5ProMedWooster Community Hospital HospitalComment on above:Performed By: #### CBCA, CMP, , 2776-04 ####[facility] ([id number])[address] [address], [place] [address]Nsveckkbzpt/100 WBC (Bld)21.1 %NormalProLouis Stokes Cleveland Va Medical Centerca Carney HospitalComment on above:Performed By: #### CBCA, CMP, , 2776-04 ####[facility] ([id number])[address], [address] [place] [address] 91859RRX (RBC) [Entitic mass]31.7 xfLzdwee75-60EiyCyyhfe Carney HospitalComment on above:Performed By: #### CBCA, CMP, , 2776-04 ####[facility] ([id number])[address], [address] [place] [address]PFCG (RBC) [Mass/Vol]32.7 g/lWDenmei77-38GmfYpwrjs Lynn HospitalComment on above: Performed By: #### CBCA, CMP, , 2776-04 ####[facility] ([id number])[address], [address] [place] [address] 83669YDP (RBC) [Entitic vol]97 tTLgatth13-172LfwVqgyaj Carney HospitalComment on above:Performed By: #### CBCA, CMP, , 2776-04 ####[facility] ([id number])[address], [address] [place] [address] 16908Phonukowy (Bld) [#/Vol]0.8 10*3/uLNormal0-0.9 [facility]ney HospitalComment on above:Performed By: #### CBCA, CMP, , 2776-04 ####[facility] ([id number])[address], [address] [place] [address] 93288Ezkldgeto/100 WBC (Bld)13.6 %NormalProLouis Stokes Cleveland Va Medical Centerca [facility] Comment on above:Performed By: #### CBCA, CMP, , 2776-04 ####[facility] ([id number])[address], [address] [place] [address] 59265 Neutrophils/100 WBC (Bld)59.4 %NormalProMedica Lynn HospitalComment on above: Performed By: #### CBCA, CMP, , 2776-04 ####[facility] ([id number])[address], [address] [place] [address] 25824Lewqhonz mean volume (Bld) [Entitic vol]7.0 fLNormal7-12[facility] Lynn HospitalComment on above:Performed By: #### CBCA, CMP, , 2776-04 ####[facility] ([id number])[address], [address] [place] [address] 36583Sxmddcufq (Bld) [#/Vol]65 10*3/xQEvx928-356EirPacdiw Lynn HospitalComment on above:Performed By: #### CBCChristiano, CMP, , 2776-04 ####[facility] ([id number])[address], [address] [place] [address] 86610PBD COUNT2.32 X10E12/LLow3.80-5.20[facility] Lynn HospitalComment on above:Performed By: #### CBCChristiano, CMP, , 2776-04 ####[facility] ([id number])[address], [address] [place] [address] 26873IBY (Bld) [#/Vol]5.9 10*3/uLNormal4.0-11.0[facility] Lynn HospitalComment on above:Performed By: #### CBCA, CMP, , 2776-04 ####[facility] ([id number])[address], [address] [place] [address] 28407WQEPZRUIWYSLD METABOLIC PANELon 77-09-5929Dtqcduf [Mass/Vol]3.2 g/dLNormal3.2-5.3[facility] Lynn HospitalComment on above:Performed By: #### CBCA, CMP, , 2777-1 ####[facility] ([id number])[address], [address], [place] [address]QQS [Catalytic activity/Vol]65 U/UYmwire21-420WyaEytefb [facility] Comment on above:Performed By: #### RENA BREAUX, , 2776-04 ####[facility] ([id number])[address], [address], [place] [address]CVJ [Catalytic activity/Vol]4 U/LNormal0-31[facility] HospitalComment on above:Performed By: #### RENA BREAUX, , 2776-04 ####[facility] ([id number])[address], [address], [place] [address]Jfyqf gap [Moles/Vol]8 mmol/LNormal5-15[facility] HospitalComment on above:Performed By: #### RENA BREAUX, , 2776-04 ####[facility] ([id number])[address], [address], [place] [address]GIB [Catalytic activity/Vol]11 U/LNormal0-41 [facility] Carney HospitalComment on above:Performed By: #### RENA BREAUX, , 2776-04 ####[facility] ([id number])[address], [address], [place] [address]Kxdhidjnb [Mass/Vol]1.1 mg/dLNormal0.3-1.2[facility] HospitalComment on above:Performed By: #### NAMITA CMP, , 2776-04 ####[facility] ([id number])[address], [address], [place] [address]Maszjda [Mass/Vol]8.6 mg/dLNormal8.5-10.5[facility] Carney HospitalComment on above:Performed By: #### NAMITA CMP, , 2776-04 ####[facility] ([id number])[address], [address], [place] [address]Fntofxkv [Moles/Vol]107 mmol/LBkqkpe04-688SgrKmansb [place] HospitalComment on above: Performed By: #### RENA BREAUX, , 2776-04 ####[facility] ([id number])[address], [address], [place] [address]WY0 [Moles/Vol]23 mmol/L Wvlrbz56-57IqnCqzrcw [facility] HospitalComment on above:Performed By: #### RENA BREUAX, , 2776-04 ####[facility] ([id number])[address], [address], [place] [address]Sdbwjcvzqq [Mass/Vol]0.88 mg/dLNormal0.40-1.00 [facility] HospitalComment on above:Result Comment: METHOD TRACEABLE TO IDMS STANDARDPerformed By: #### RENA BREAUX, , 2776-04 ####[facility] ([id number])[address], [address], [place] [address]OLQ/1.73 sq M.predicted among non-blacks MDRD (S/P/Bld) [Vol rate/Area]75 mL/min/{1.73_m2} Normal>59ProRegency Hospital CompanyComment on above:Result Comment: Reported eGFR is based on theCKD-EPI 2020 equation that doesnot use a race coefficient. Performed By: #### RENA BREAUX, , 2776-04 ####[facility] ([id number])[address], [address], [place] [address]Hcxwbgl [Mass/Vol]108 mg/dL Jkso54-23WoyHoisem [place] HospitalComment on above:Performed By: #### RENA BREAUX, , 2776-04 ####[facility] ([id number])[address], [address], [place] [address]Qgcvvvipi [Moles/Vol]3.4 mmol/LLow3.5-5.0ProLouis Stokes Cleveland Va Medical Centerca Carney HospitalComment on above:Performed By: #### RENA BREAUX, , 1 ####[facility] ([id number])[address], [address], [place] [address]Rosxzcz [Mass/Vol]5.5 g/dLLow6.0-8.0ProLouis Stokes Cleveland Va Medical Centerca Carney HospitalComment on above:Performed By: #### RENA BREAUX, , 2776-04 ####[facility] ([id number])[address], [address], [place] [address]Atkvcn [Moles/Vol]138 mmol/QCgbfxx746-764DxtYrmdir Carney HospitalComment on above:Performed By: #### RENA BREAUX, , 2776-04 ####[facility] ([id number])[address], [address], [place] [address]Gwmm nitrogen [Mass/Vol]9 mg/dLNormal5-27 ProMgreene county hospitala Carney HospitalComment on above:Performed By: #### RENA BREAUX, , 2776-04 ####[facility] ([id number])[address], [address], [place] [address]ZBHBXKWRUrg 77-43-7442Oybqmqrwd [Mass/Vol]1.8 mg/dLNormal 1.8-2.6[facility] HospitalComment on above:Performed By: #### RENA BREAUX, , 2776-04 ####[facility] ([id number])[address], [address], [place] [address]Uihlkmqqr Ionized ISE (Bld) [Moles/Vol]on 06-19-2024 Magnesium [Moles/Vol]0.62 mmol/LNormal0.45-0.74[facility] Lynn HospitalComment on above:Result Comment: NEW REFERENCE RANGEPerformed By: #### 81798-8 ####[facility] ([id number])[address], [address] [place] [address]CYSUNVLHGPqs 71-32-6544Nswxgkncy [Mass/Vol]4.2 mg/dLNormal2.4-4.9[facility] Lynn HospitalComment on above:Performed By: #### 2823-3, 2777-1 ####[facility] ([id number])[address], [address] [place] [address]97 Phosphate [Mass/Vol]2.1 mg/dLLow2.4-4.9[facility] Lynn HospitalComment on above:Performed By: #### CBCA, CMP, , 2776-04 ####[facility] ([id number])[address], [address] [place] [address] 749[address]GDFVMKKCBxz 06-19-2024 Potassium [Moles/Vol]4.1 mmol/LNormal3.5-5.0[facility] Lynn HospitalComment on above:Performed By: #### 2823-3, 2777-1 ####[facility] ([id number])[address], [address] [place] [address] 08091FC CHEST 1 VWon 06-19-2024 XR CHEST 1 VWNormalProMedica Lynn HospitalCB AND AUTO DIFFon 06-18-2024 ABSOLUTE BASOPHIL0.1 X10E9/LNormal0.0-0.2[facility] HospitalComment on above:Performed By: #### CBCA, CMP, LIVR, , 2776-04 ####[facility] ([id number])[address], [address] [place] [address]HDGMRLRX NEUTROPHIL3.6 X10E9/LNormal1.5-6.6[facility] HospitalComment on above: Performed By: #### CBCA, CMP, LIVR, , 2776-04 ####[facility] ([id number])[address], [address], [place] [address]Lmtekgleo/100 WBC (Bld)1.5 %NormalProMedica Lynn HospitalComment on above:Performed By: #### CBCA, CMP, LIVR, , 2776-04 ####[facility] ([id number])[address], [address], [place] [address]Dfgmbtbrgvm (Bld) [#/Vol] 0.2 10*3/uLNormal0.0-0.4[facility] HospitalComment on above:Performed By: #### CBCA, CMP, LIVR, , 2776-04 ####[facility] ([id number])[address], [address], [place] [address]Gvyqdywwius/100 WBC (Bld) 3.9 %NormalProMedica Lynn HospitalComment on above:Performed By: #### CBCA, CMP, LIVR, , 2776-04 ####[facility] ([id number])[address], [address], [place] [address]Bzrpybxhebm distribution width (RBC) [Ratio] 17.2 %High11.5-15.0Pro[facility] Lynn HospitalComment on above:Performed By: #### CBCA, CMP, LIVR, , 2776-04 ####[facility] ([id number])[address], [address], [place] [address]Mnvdtkxwtu (Bld) [Volume fraction]24.3 %Cwz25-09QwqOjcwkz Lynn HospitalComment on above:Performed By: #### CBCA, CMP, LIVR, , 2776-04 ####[facility] ([id number])[address], [address], [place] [address]Nnyroiobgn (Bld) [Mass/Vol] 8.1 g/dLLow11.7-15.5PFirelands Regional Medical Center HospitalComment on above:Performed By: #### CBCA, CMP, LIVR, , 2776-04 ####[facility] ([id number])[address], [address], [place] [address]Xldnestlrtx (Bld) [#/Vol] 1.2 10*3/uLNormal1.0-3.5PFirelands Regional Medical Center HospitalComment on above:Performed By: #### CBCA, CMP, LIVR, , 2776-04 ####[facility] ([id number])[address], [address], [place] [address]Coalnchpuoh/100 WBC (Bld) 20.1 %NormalProMedica Carney HospitalComment on above:Performed By: #### CBCA, CMP, LIVR, , 2776-04 ####[facility] ([id number])[address], [address], [place] [address]GQJ (RBC) [Entitic mass]32.1 zkZsfczs32-35 [facility] HospitalComment on above:Performed By: #### CBCA, CMP, LIVR, , 2776-04 ####[facility] ([id number])[address], [address], [place] [address]JZDJ (RBC) [Mass/Vol]33.2 g/xQXmtiny40-51KxhArbwup Lynn HospitalComment on above:Performed By: #### CBCA, CMP, LIVR, , 2776-04 ####[facility] ([id number])[address], [address], [place] [address]WAR (RBC) [Entitic vol]97 hKXftwyt55-224AsfBtxugx Lynn HospitalComment on above:Performed By: #### CBCA, CMP, LIVR, , 2776-04 ####[facility] ([id number])[address], [address] [place] [address]Nsmuwznyk (Bld) [#/Vol]0.8 10*3/uLNormal0-0.9[facility] Comment on above:Performed By: #### CBCA, CMP, LIVR, , 2776-04 ####[facility] ([id number])[address], [address] [address] Monocytes/100 WBC (Bld)13.1 %NormalProLouis Stokes Cleveland Va Medical Centerca Carney HospitalComment on above: Performed By: #### CBCA, CMP, LIVR, , 2776-04 ####[facility] ([id number])[address], [address], [place] [address]Jprmegqdhji/100 WBC (Bld)61.4 %NormalProLouis Stokes Cleveland Va Medical Centerca Carney HospitalComment on above:Performed By: #### CBCA, CMP, LIVR, , 2776-04 ####[facility] ([id number])[address], [address], [place] [address]Xfqkbzra mean volume (Bld) [Entitic vol]6.6 fLLow7-12[facility] HospitalComment on above:Performed By: #### CBCA, CMP, LIVR, , 2776-04 ####[facility] ([id number])[address], [address], [place] [address]Rwkjrzvyt (Bld) [#/Vol]77 10*3/tGZij378-834LzgKheode Lynn HospitalComment on above:Performed By: #### CBCA, CMP, LIVR, , 2776-04 ####[facility] ([id number])[address], [address], [place] [address]UII COUNT2.52 X10E12/LLow 3.80-5.20[facility]ney HospitalComment on above:Performed By: #### CBCA, CMP, LIVR, , 2776-04 ####[facility] ([id number])[address], [address], [place] [address]KFE (Bld) [#/Vol]5.8 10*3/uLNormal4.0-11.0 [facility] HospitalComment on above:Performed By: #### CBCA, CMP, LIVR, , 2776-04 ####[facility] ([id number])[address], [address], [place] [address]UQKDTAHINNVFR METABOLIC PANELon 61-61-7751Qcgddkc [Mass/Vol]2.8 g/dLLow3.2-5.3[facility]ney HospitalComment on above:Performed By: #### CBCA, CMP, LIVR, , 2776-04 ####[facility] ([id number])[address], [address], [place] [address]PPS [Catalytic activity/Vol]78 U/CIknaec47-721BfwXsvrtl [place] HospitalComment on above: Performed By: #### CBCA, CMP, LIVR, , 2776-04 ####[facility] ([id number])[address], [address], [place] [address]XBY [Catalytic activity/Vol]3 U/LNormal0-31[facility] HospitalComment on above:Performed By: #### CBCA, CMP, LIVR, , 2776-04 ####[facility] ([id number])[address], [address], [place] [address]Xyjev gap [Moles/Vol]7 mmol/LNormal5-15[facility] HospitalComment on above:Performed By: #### CBCA, CMP, LIVR, , 2776-04 ####[facility] ([id number])[address], [address], [place] [address]OYY [Catalytic activity/Vol]15 U/LNormal0-41[facility] HospitalComment on above:Performed By: #### CBCA, CMP, LIVR, , 2776-04 ####[facility] ([id number])[address], [address], [place] [address]Nukohncqv [Mass/Vol]1.2 mg/dLNormal0.3-1.2[facility] HospitalComment on above:Performed By: #### CBCA, CMP, LIVR, , 2776-04 ####[facility] ([id number])[address], [address], [place] [address]Oqhwlhf [Mass/Vol]8.6 mg/dL Normal8.5-10.5[facility] HospitalComment on above:Performed By: #### CBCA, CMP, LIVR, , 2776-04 ####[facility] ([id number])[address], [address], [place] [address]Lhlvwbbf [Moles/Vol]106 mmol/VTnsfhx37-344 [facility] HospitalComment on above:Performed By: #### CBCA, CMP, LIVR, , 2776-04 ####[facility] ([id number])[address], [address], [place] [address]WM8 [Moles/Vol]26 mmol/BQpkyqh92-69RcpVnqykx [place] HospitalComment on above:Performed By: #### CBCA, CMP, LIVR, , 2776-04 ####[facility] ([id number])[address], [address], [place] [address]Dsqdoxfjdz [Mass/Vol]0.72 mg/dLNormal0.40-1.00[facility] Comment on above:Result Comment: METHOD TRACEABLE TO IDMS STANDARDPerformed By: #### NAMITA, CMP, LIVR, , 2776-04 ####[facility] ([id number])[address] [address], [place] [address]mCSU (CKD-EPI) NON-RACE DEPENDENT>90Normal>59[facility] HospitalComment on above:Result Comment: Reported eGFR is based on theCKD-EPI 2020 equation that doesnot use a race coefficient.Performed By: #### RENA BREAUX, LIVR, , 2776-04 ####[facility] ([id number])[address] [address], [place] [address] Glucose [Mass/Vol]95 mg/cOGlcthx56-79FtxBwcaem [place] HospitalComment on above: Performed By: #### RENA BREAUX, LIVR, , 2776-04 ####[facility] ([id number])[address] [place] [address], [place] [address]Bbnnyhfnu [Moles/Vol] 3.9 mmol/LNormal3.5-5.0ProRegency Hospital CompanyComment on above:Performed By: #### CBCChristiano, CMP, LIVR, , 2776-04 ####[facility] ([id number])[address] [place] [address], [place] [address]Bxgkyvt [Mass/Vol]5.5 g/dL Low6.0-8.0ProRegency Hospital CompanyComment on above:Performed By: #### CBCA, CMP, LIVR, , 2776-04 ####[facility] ([id number])[address] [address], [place] [address]Afilli [Moles/Vol]139 mmol/SKhwykn129-820 [facility] HospitalComment on above:Performed By: #### CBCA, CMP, LIVR, , 2776-04 ####[facility] ([id number])[address], [address], [place] [address]Clxy nitrogen [Mass/Vol]8 mg/dLNormal5-27[facility] HospitalComment on above:Performed By: #### CBCA, CMP, LIVR, , 2776-04 ####[facility] ([id number])[address], [address], [place] [address]OSIZI PANELon 33-32-3250Gxokxozsz.direct [Mass/Vol]0.7 mg/dL High0.0-0.4[facility] HospitalComment on above:Performed By: #### CBCChristiano, CMP, LIVR, , 2776-04 ####[facility] ([id number])[address], [address] [place] [address]EKPBJYJNRtu 83-63-4093Dklprvwcp [Mass/Vol] 1.9 mg/dLNormal1.8-2.6ProLouis Stokes Cleveland Va Medical Centerca Carney HospitalComment on above:Performed By: #### CBCA, CMP, LIVR, , 2776-04 ####[facility] ([id number])[address], [address] [place] [address]AQANYPRVLIuk 06-18-2024 Phosphate [Mass/Vol]3.1 mg/dLNormal2.4-4.9ProLouis Stokes Cleveland Va Medical Centerca [facility]ney HospitalComment on above:Performed By: #### CBCA, CMP, LIVR, , 2776-04 ####[facility] ([id number])[address], [address], [place] [address]FKWNATU AND INR on 66-56-6239AXY Coag (PPP) [Relative time]1.1 {INR}Normal0.9-1.2PKettering Health Behavioral Medical CenterComment on above:Performed By: #### HUDSON, 30395-1 ####[facility] ([id number])[address], [place]240[place], [place] [address]GP Coag (PPP) [Time]13.0 sNormal9.8-13.2PFirelands Regional Medical Center HospitalComment on above: Performed By: #### HUDSON, 19397-8 ####[facility] ([id number])[address], [id number], [place] [address]KG CHEST 1 VWon 37-21-7156IP CHEST 1 VWNormalProRegency Hospital CompanyaPTT Coag (PPP) [Time]on 06-18-2024 aPTT Coag (Bld) [Time]31 iKugrfu99-77FdrZlictk [place] HospitalComment on above: Performed By: #### HUDSON, 98260-1 ####[facility] ([id number])[address], [place], [place] [address]XWQ AND AUTO DIFFon 50-95-4844YYLKGSSD BASOPHIL0.1 X10E9/LNormal0.0-0.2PKettering Health Behavioral Medical Center Comment on above:Performed By: #### CBCA, CMP, LIVR, , 2776-1 ####[facility] ([id number])[address], [address], [place] [address] ABSOLUTE NEUTROPHIL3.2 X10E9/LNormal1.5-6.6[facility] Doctors HospitalComment on above:Performed By: #### CBCA, CMP, LIVR, , 1 ####[facility] ([id number])[address], [address], [place] [address]Sodavrmce/100 WBC (Bld)1.4 %NormalProGenesis Hospital HospitalComment on above:Performed By: #### CBCA, CMP, LIVR, , 2776-04 ####[facility] ([id number])[address], [address], [place] [address]Csfqrxmngno (Bld) [#/Vol] 0.1 10*3/uLNormal0.0-0.4[facility] HospitalComment on above:Performed By: #### CBCA, CMP, LIVR, , 2776-04 ####[facility] ([id number])[address], [address], [place] [address]Etpmzqavlud/100 WBC (Bld) 2.4 %NormalProGenesis Hospital HospitalComment on above:Performed By: #### CBCA, CMP, LIVR, , 2776-04 ####[facility] ([id number])[address], [address] [place] [address]Xhsaunspuab distribution width (RBC) [Ratio] 17.5 %High11.5-15.0[facility] HospitalComment on above:Performed By: #### CBCA, CMP, LIVR, , 2776-04 ####[facility] ([id number])[address] [address] [place] [address]Thscisopda (Bld) [Volume fraction]24.5 %Wav32-59EorBaockg [place] HospitalComment on above:Performed By: #### CBCA, CMP, LIVR, , 2776-04 ####[facility] ([id number])[address] [address] [place] [address]Fzjfszerlj (Bld) [Mass/Vol] 8.3 g/dLLow11.7-15.5PChristus St. Patrick Hospitalica Carney HospitalComment on above:Performed By: #### CBCA, CMP, LIVR, , 2776-04 ####[facility] ([id number])[address], [address] [place] [address]Evbdzozvbmm (Bld) [#/Vol] 0.9 10*3/uLLow1.0-3.5Pro[facility] HospitalComment on above:Performed By: #### CBCA, CMP, LIVR, , 2776-04 ####[facility] ([id number])[address], [address], [place] [address]Dcnmpnenfus/100 WBC (Bld) 19.3 %NormalProGenesis Hospital HospitalComment on above:Performed By: #### CBCA, CMP, LIVR, , 2776-04 ####[facility] ([id number])[address], [address] [place] [address]DFN (RBC) [Entitic mass]32.3 toKqbzas26-73 [facility] HospitalComment on above:Performed By: #### CBCA, CMP, LIVR, , 2776-04 ####[facility] ([id number])[address], [address] [place] [address]PFQH (RBC) [Mass/Vol]33.8 g/rYRhwiwd78-05PwjAmseog [place] HospitalComment on above:Performed By: #### CBCA, CMP, LIVR, , 2776-04 ####[facility] ([id number])[address], [address] [place] [address] 76508ELT (RBC) [Entitic vol]96 oKYwrwec61-535NqmJfqcuu [place] HospitalComment on above:Performed By: #### CBCA, CMP, LIVR, , 2776-04 ####[facility] ([id number])[address], [address] [place] [address] 89860Mqwpxgkpa (Bld) [#/Vol]0.5 10*3/uLNormal0-0.9[facility] Comment on above:Performed By: #### CBCA, CMP, LIVR, , 2776-04 ####[facility] ([id number])[address], [address] [address] Monocytes/100 WBC (Bld)10.6 %NormalProMedica Lynn HospitalComment on above: Performed By: #### CBCA, CMP, LIVR, , 2776-04 ####[facility] ([id number])[address], [address], [place] [address]Aaxinoeoqsb/100 WBC (Bld)66.3 %NormalProMedica Lynn HospitalComment on above:Performed By: #### CBCA, CMP, LIVR, , 2776-04 ####[facility] ([id number])[address], [address], [place] [address]Toemjyrj mean volume (Bld) [Entitic vol]6.8 fLLow7-12[facility] HospitalComment on above:Performed By: #### CBCA, CMP, LIVR, , 2776-04 ####[facility] ([id number])[address], [address] [place] [address] 46243Lhtuivqwg (Bld) [#/Vol]87 10*3/wQUht102-264MnuLxtqqe Lynn HospitalComment on above:Performed By: #### CBCA, CMP, LIVR, , 2776-04 ####[facility] ([id number])[address], [address] [place] [address]97[address]QEB COUNT2.56 X10E12/LLow 3.80-5.20[facility] HospitalComment on above:Performed By: #### CBCA, CMP, LIVR, , 2776-04 ####[facility] ([id number])[address], [address], [place] [address]UFW (Bld) [#/Vol]4.8 10*3/uLNormal4.0-11.0 [facility] HospitalComment on above:Performed By: #### CBCA, CMP, LIVR, , 2776-04 ####[facility] ([id number])[address], [address], [place] [address]COAACSCYZOKYA METABOLIC PANELon 56-26-4024Kasybcw [Mass/Vol]2.8 g/dLLow3.2-5.3[facility] HospitalComment on above:Performed By: #### CBCA, CMP, LIVR, , 2776-04 ####[facility] ([id number])[address], [address], [place] [address]SSS [Catalytic activity/Vol]76 U/TQarzbe73-917NgwEaekmp Lynn HospitalComment on above: Performed By: #### CBCA, CMP, LIVR, , 2776-04 ####[facility] ([id number])[address], [address], [place] [address]SCQ [Catalytic activity/Vol]4 U/LNormal0-31[facility] HospitalComment on above:Performed By: #### CBCA, CMP, LIVR, , 2776-04 ####[facility] ([id number])[address], [address], [place] [address]Xbxir gap [Moles/Vol]9 mmol/LNormal5-15[facility] HospitalComment on above:Performed By: #### CBCA, CMP, LIVR, , 2776-04 ####[facility] ([id number])[address], [address], [place] [address]Wzmsfnmss By: #### ELEC, ####[facility] ([id number])[address], [address], [place] [address]ZSI [Catalytic activity/Vol]15 U/LNormal0-41[facility] HospitalComment on above:Performed By: #### CBCA, CMP, LIVR, , 2776-04 ####[facility] ([id number])[address], [address], [place] [address]Gpdesxkts [Mass/Vol]1.5 mg/dLHigh0.3-1.2PFirelands [facility] HospitalComment on above:Performed By: #### CBCA, CMP, LIVR, , 2776-04 ####[facility] ([id number])[address], [address], [place] [address]Zmyixip [Mass/Vol]8.5 mg/dLNormal8.5-10.5PFirelands Regional Medical Center HospitalComment on above: Performed By: #### CBCA, CMP, LIVR, , 2776-04 ####[facility] ([id number])[address] [address], [place] [address]HY2 [Moles/Vol]26 mmol/VYiexzj97-23TjuFnvhxh [place] HospitalComment on above:Performed By: #### CBCA, CMP, LIVR, , 2776-04 ####[facility] ([id number])[address] [address], [place] [address]Ftukqwstaz [Mass/Vol]0.90 mg/dLNormal0.40-1.00[facility] HospitalComment on above:Result Comment: METHOD TRACEABLE TO IDMS STANDARDPerformed By: #### CBCA, CMP, LIVR, , 2776-04 ####[facility] ([id number])[address] [address], [place] [address]KQU/1.73 sq M.predicted among non-blacks MDRD (S/P/Bld) [Vol rate/Area]73 mL/min/{1.73_m2}Normal>59[facility]ney HospitalComment on above: Result Comment: Reported eGFR is based on theCKD-EPI 2020 equation that doesnot use a race coefficient.Performed By: #### NAMITA CMP, LIVR, , 2776-04 ####[facility] ([id number])[address], [address], [place] [address]Pqcvoyu [Mass/Vol]79 mg/vADfinyu69-52NkmVhuymc [place] HospitalComment on above:Performed By: #### NAMITA, CMP, LIVR, , 2776-04 ####[facility] ([id number])[address], [address], [place] [address]Vtholttit [Moles/Vol]4.0 mmol/LNormal3.5-5.0[facility] HospitalComment on above: Performed By: #### NAMITA CMP, LIVR, , 2776-04 ####[facility] ([id number])[address], [address], [place] [address]Gifbvpy [Mass/Vol]5.0 g/dLLow6.0-8.0[facility] HospitalComment on above:Performed By: #### NAMITA CMP, LIVR, , 2776-04 ####[facility] ([id number])[address], [address], [place] [address]Lthz nitrogen [Mass/Vol]7 mg/dLNormal5-27 [facility] HospitalComment on above:Performed By: #### CBCChristiano, CMP, LIVR, , 2776-04 ####[facility] ([id number])[address], [address], [place] [address]Lbhqjffc [Moles/Vol]105 mmol/KDcetkq47-686UsiCmekgy [place] HospitalComment on above:Performed By: #### CBCA, CMP, LIVR, , 2776-04 ####[facility] ([id number])[address], [address], [place] [address]Fsleubzjz By: #### ELEC, ####[facility] ([id number])[address], [id number], [place] [address]Zjvcgx [Moles/Vol]140 mmol/YAktvwp872-906TccHkobta Lynn HospitalComment on above:Performed By: #### CBCA, CMP, LIVR, , 2776-04 ####[facility] ([id number])[address], [address], [place] [address]Yzzpyfoqw By: #### ELEC, ####[facility] ([id number])[address], [address], [place] [address]Jrtuwtw.ionized (Bld) [Mass/Vol]on 52-33-2918UBCEHSK CALCIUM 4.9 mg/dLNormal4.5-5.3[facility] HospitalComment on above:Performed By: #### 39981-2, 43550-3 ####[facility] ([id number])[address], [address], [place] [address]YGZMHLINENGPrz 34-06-1671Ufzhg gap [Moles/Vol]10 mmol/LNormal5-15[facility] HospitalComment on above: Performed By: #### ELEC, , 2776-04 ####[facility] ([id number])[address], [address], [place] [address]Vvxytwsw [Moles/Vol]106 mmol/UUblxdd95-355LpnLkgpvk Lynn HospitalComment on above:Performed By: #### ELEC, , 2776-04 ####[facility] ([id number])[address], [address], [place] [address]QF0 [Moles/Vol]25 mmol/VXkngqt28-22PlwGemdvr Lynn HospitalComment on above:Performed By: #### ELEC, , 2777-1 ####[facility] ([id number])[address], [address], [place] [address]Ezmgncrqm [Moles/Vol]4.1 mmol/LNormal3.5-5.0[facility] Comment on above:Performed By: #### ELEC, , 2776- ####[facility] ([id number])[address], [address], [place] [address]Iavnoejur By: #### ELEC, ####[facility] ([id number])[address], [id number], [place] [address]Wfkyxd [Moles/Vol]141 mmol/ZSupcnz477-074RniWnnesz Lynn HospitalComment on above:Performed By: #### ELEC, , 2776-04 ####[facility] ([id number])[address], [address], [place] [address]Aexwk gap [Moles/Vol]10 mmol/LNormal5-15[facility] HospitalComment on above:Performed By: #### ELEC, ####[facility] ([id number])[address], [place], [place] [address]TL6 [Moles/Vol]25 mmol/L Vreqip35-17SirBrgsgr Lynn HospitalComment on above:Performed By: #### ELEC, ####[facility] ([id number])[address], [address], [place] [address]Ajjxklbai [Moles/Vol]4.2 mmol/LNormal3.5-5.0[facility] HospitalComment on above:Performed By: #### ELEC, ####[facility] ([id number])[address], [id number], [place] [address]Oapxvvyy [Moles/Vol]104 mmol/WKscjhw33-326GphPeijld Lynn HospitalComment on above: Performed By: #### ELEC, ####[facility] ([id number])[address], [id number], [place] [address]CB5 [Moles/Vol]27 mmol/L Mlrdjz07-21TuyMcvmsn Lynn HospitalComment on above:Performed By: #### ELEC, ####[facility] ([id number])[address], [address], [place] [address]Hxnig gap [Moles/Vol]10 mmol/LNormal5-15[facility] HospitalComment on above:Performed By: #### ELEC, ####[facility] ([id number])[address], DXNYR017KQETLD, [place] [address]Hfyqcaqc [Moles/Vol]105 mmol/VGedqml58-276RemOmmxbp Lynn HospitalComment on above: Performed By: #### ELEC, ####[facility] ([id number])[address], KNRQK835EOWTXL, [place] [address]FT5 [Moles/Vol]25 mmol/L Zqbmdw80-65IdgQcafit Lynn HospitalComment on above:Performed By: #### ELEC, ####[facility] ([id number])[address], [address], [place] [address]Saxcmwxhr [Moles/Vol]3.9 mmol/LNormal3.5-5.0[facility] HospitalComment on above:Performed By: #### ELEC, ####[facility] ([id number])[address], KDFAC554RWMCGV, [place] [address]Skdxjk [Moles/Vol]140 mmol/NKyzhbh931-562JixEuitkj Lynn HospitalComment on above: Performed By: #### ELEC, ####[facility] ([id number])[address], KBLKX091[place]PSNKH, [place] [address]YGSWM PANELon 06-17-2024 Bilirubin.direct [Mass/Vol]0.7 mg/dLHigh0.0-0.4[facility] HospitalComment on above:Performed By: #### CBCA, CMP, LIVR, , 2771 ####[facility] ([id number])[address], [address], [place] [address]ZEVZEMZOYml 91-58-5687Hentzfada [Mass/Vol]2.3 mg/dLNormal1.8-2.6[facility] Comment on above:Performed By: #### ELEC, , 2776-04 ####[facility] ([id number])[address], [address], [place] [address]Ssbnfileo [Mass/Vol]2.0 mg/dLNormal1.8-2.6[facility] HospitalComment on above: Performed By: #### CBCA, CMP, LIVR, , 1 ####[facility] ([id number])[address], [address], [place] [address]Rdrawjlvs By: #### ELEC, ####[facility] ([id number])[address], [address], [place] [address]Zeduppher [Mass/Vol]1.8 mg/dLNormal1.8-2.6[facility] HospitalComment on above:Performed By: #### ELEC, ####[facility] ([id number])[address], [id number], [place] [address]Dgqbjhvha [Mass/Vol]2.1 mg/dLNormal1.8-2.6[facility] HospitalComment on above: Performed By: #### ELEC, ####[facility] ([id number])[address], QRRDE812WYMPHG, [place] [address]Bftjcqtcn By: #### CBCA, CMP, LIVR, , 2776-04 ####[facility] ([id number])[address], [address], [place] [address]Iqhsnohza Ionized ISE (Bld) [Moles/Vol]on 14-28-3839Ezrwwkazg [Moles/Vol]0.63 mmol/LNormal0.45-0.74[facility] HospitalComment on above:Result Comment: NEW REFERENCE RANGEPerformed By: #### 22676-4, 60624-1 ####[facility] ([id number])[address] [address], [place] [address]XVMTTYSXOCjo 68-84-0929Gydxqtyzs [Mass/Vol]2.1 mg/dLLow 2.4-4.9[facility] HospitalComment on above:Performed By: #### ELEC, , 2776-04 ####[facility] ([id number])[address] [address] [place] [address]Tenhtugur [Mass/Vol]2.8 mg/dLNormal2.4-4.9[facility] HospitalComment on above:Performed By: #### CBCA, CMP, LIVR, , 2776-04 ####[facility] ([id number])[address] [address] [place] [address]RNXOSFD AND INRon 38-51-7421BUH Coag (PPP) [Relative time]1.2 {INR}Normal 0.9-1.2[facility] HospitalComment on above:Performed By: #### PINR, 95823- 9 ####[facility] ([id number])[address], [address] [address]XR Coag (PPP) [Time]13.3 sHigh9.8-13.2[facility] HospitalComment on above:Performed By: #### HUDSON, 77949-3 ####[facility] ([id number])[address] [address]ODJ Coag (PPP) [Relative time]1.2 {INR}Normal0.9-1.2[facility] HospitalComment on above:Performed By: #### HUDSON, 40234-2 ####[facility] ([id number])[address] [address]OB Coag (PPP) [Time]13.9 sHigh9.8-13.2 ProMUniversity [facility] HospitalComment on above:Performed By: #### HUDSON, 45598-3 ####[facility] ([id number])[address] [address]Yvzcphvgso [Mass/Vol]on 91-02-5355BBTZQUGOKZ05.8 ug/mLNormal5.0-40.0 [facility] HospitalComment on above:Result Comment: Peak 30-40 ug/mLTrough 5-20 ug/ml Performed By: #### 70113-9 ####[facility] ([id number])[address], [facility] [address], [place] [address]OX ABD NG TUBE PLACEMENT 1 VIEWon 40-91-9636VF ABD NG TUBE PLACEMENT 1 VIEWNormalProMedica Guernsey Memorial HospitalXR CHEST 1 VWon 34-25-5352BM CHEST 1 VWNormalProMedica Guernsey Memorial HospitalaPTT Coag (PPP) [Time]on 64-21-1105rTOP Coag (Bld) [Time]31 bIyujbg99-02KhtMlllho Lynn HospitalComment on above: Performed By: #### HUDSON, 68165-2 ####[facility] ([id number])[address], UOCVH033[place]QOM[place], [place] [address]rZOP Coag (Bld) [Time]33 s Dyoyua32-94AimAskcpq Carney HospitalComment on above:Performed By: #### HUSDON, 98013-6 ####[facility] ([id number])[address], [address], [place] [address]ABUJLFCJ BLOOD GASon 20-91-7292PNFNV'S TESTNormalProMedica Carney HospitalComment on above:Performed By: #### ABG ####[facility] ([id number])[address] [place], [place] [address]Lskz excess Calc (Bld) [Moles/Vol]0.0 mmol/LNormal0.0-2.0[facility] HospitalComment on above: Performed By: #### ABG ####[facility] ([id number])[address] [place], [place] [address]Tjix efhkoaychob32.6 [degF]Dgdznp61.0ProLouis Stokes Cleveland Va Medical Centerca Carney HospitalComment on above:Performed By: #### ABG ####[facility] ([id number])[address] [place], [place] [address]BLL7 (Bld) [Moles/Vol]23.5 mmol/L Lbbpri39-26RxxAjxjbp Lynn HospitalComment on above:Performed By: #### ABG ####[facility] ([id number])[address] [place] [address] INSP. O2 CONC.40 %NormalProMedica Carney HospitalComment on above:Performed By: #### ABG ####[facility] ([id number])[address] [place], [place] [address]Xqsctc (Bld) [Partial pressure]66 mm[Hg]Yia84-701NupUwvzgn [facility] Comment on above:Performed By: #### ABG ####[facility] ([id number])[address] [place], [place] [address]Ygxbef saturation in Blood94.0 % Normal>90ProRegency Hospital CompanyComment on above:Performed By: #### ABG ####[facility] ([id number])[address] [place] [address] OXYGEN SOURCEVentNoalOhioHealth Doctors HospitalComment on above:Performed By: #### ABG ####[facility] ([id number])[address] [place], [place] [address]PDT790.6 KZQMRez83-03YkjMuieckRegency Hospital CompanyComment on above:Performed By: #### ABG ####[facility] ([id number])[address] [place], [place] [address]vN (Bld)7.440 [pH]Normal7.350-7.450ProRegency Hospital CompanyComment on above:Performed By: #### ABG ####[facility] ([id number])[address] [place], [place] [address]WLABHD SITEALineNoalOhioHealth Doctors HospitalComment on above:Performed By: #### ABG ####[facility] ([id number])[address] [place], [place] [address]ECINIO TYPEARTERIALNormalOhioHealth Doctors Hospital Comment on above:Performed By: #### ABG ####[facility] ([id number])[address] [place], [place] [address]IBA AND AUTO DIFFon 06-16-2024 ABSOLUTE BASOPHIL0.1 X10E9/LNormal0.0-0.2[facility] HospitalComment on above:Performed By: #### CBCA, CMP, LIVR, 97955-0, 2777-1 ####[facility] ([id number])[address], [address], [place] [address]RGXKOGHD NEUTROPHIL2.4 X10E9/LNormal1.5-6.6[facility] HospitalComment on above: Performed By: #### CBCA, CMP, LIVR, , 2776-04 ####[facility] ([id number])[address], [address], [place] [address]Qnssfatnd/100 WBC (Bld)1.2 %NormalProMedica Lynn HospitalComment on above:Performed By: #### CBCA, CMP, LIVR, , 2776-04 ####[facility] ([id number])[address] [address] [place] [address]Kxhboawoeuk (Bld) [#/Vol] 0.1 10*3/uLNormal0.0-0.4ProLouis Stokes Cleveland Va Medical Centerca Carney HospitalComment on above:Performed By: #### CBCA, CMP, LIVR, , 2776-04 ####[facility] ([id number])[address] [address], [place] [address]Emlkenzaoxl/100 WBC (Bld) 2.7 %NormalProMedica Carney HospitalComment on above:Performed By: #### CBCA, CMP, LIVR, , 2776-04 ####[facility] ([id number])[address] [address], [place] [address]Akcwwdzspuy distribution width (RBC) [Ratio] 17.3 %High11.5-15.0[facility] HospitalComment on above:Performed By: #### CBCA, CMP, LIVR, , 2776-04 ####[facility] ([id number])[address] [address], [place] [address]Tezcluvfgz (Bld) [Volume fraction]23.9 %Ftj44-16ZceVkxxxj Lynn HospitalComment on above:Performed By: #### CBCA, CMP, LIVR, , 2776-04 ####[facility] ([id number])[address], [address] [place] [address]Ysmgxftknd (Bld) [Mass/Vol] 8.1 g/dLLow11.7-15.5ProMedWooster [facility] Hospital HospitalComment on above:Performed By: #### CBCA, CMP, LIVR, , 2776-04 ####[facility] ([id number])[address], [address], [place] [address]Lxizogxxeti (Bld) [#/Vol] 1.0 10*3/uLNormal1.0-3.5ProMedWooster Community Hospital HospitalComment on above:Performed By: #### CBCA, CMP, LIVR, , 2776-04 ####[facility] ([id number])[address], [address], [place] [address]Suhcftumwis/100 WBC (Bld) 23.8 %NormalProGenesis Hospital HospitalComment on above:Performed By: #### CBCA, CMP, LIVR, , 2776-04 ####[facility] ([id number])[address], [address] [place] [address]YXP (RBC) [Entitic mass]32.0 rjBrgdal33-78 [facility] HospitalComment on above:Performed By: #### CBCA, CMP, LIVR, , 2776-04 ####[facility] ([id number])[address], [address] [place] [address]QNSJ (RBC) [Mass/Vol]33.9 g/iJIsjaax43-73IvgPepcuj [facility] HospitalComment on above:Performed By: #### CBCA, CMP, LIVR, , 2777-1 ####[facility] ([id number])[address], [address], [place] [address]TMX (RBC) [Entitic vol]94 zIEbdupy31-456FobHmhazf [facility]ney HospitalComment on above:Performed By: #### CBCA, CMP, LIVR, , 2776-04 ####[facility] ([id number])[address], [address], [place] [address]Yleydwqoh (Bld) [#/Vol]0.6 10*3/uLNormal0-0.9[facility] Comment on above:Performed By: #### CBCA, CMP, LIVR, , 2776-04 ####[facility] ([id number])[address], [address] [place] [address] Monocytes/100 WBC (Bld)13.8 %NormalProMedica Carney HospitalComment on above: Performed By: #### CBCA, CMP, LIVR, , 2776-04 ####[facility] ([id number])[address], [address], [place] [address]Cfrydbdqfne/100 WBC (Bld)58.5 %NormalProLouis Stokes Cleveland Va Medical Centerca Carney HospitalComment on above:Performed By: #### CBCA, CMP, LIVR, , 2776-04 ####[facility] ([id number])[address], [address] [place] [address]Nxsohdpw mean volume (Bld) [Entitic vol]7.3 fLNormal7-12[facility] HospitalComment on above:Performed By: #### CBCA, CMP, LIVR, , 2776-04 ####[facility] ([id number])[address], [address], [place] [address]Sabdmwffm (Bld) [#/Vol]99 10*3/iNWio403-301OnyYfbsrv Lynn HospitalComment on above:Performed By: #### CBCA, CMP, LIVR, , 2776-04 ####[facility] ([id number])[address], [address] [place] [address]PAG COUNT2.53 X10E12/LLow 3.80-5.20[facility] HospitalComment on above:Performed By: #### CBCA, CMP, LIVR, , 2776-04 ####[facility] ([id number])[address], [address] [place] [address]QPN (Bld) [#/Vol]4.2 10*3/uLNormal4.0-11.0 [facility] HospitalComment on above:Performed By: #### CBCA, CMP, LIVR, , 2776-04 ####[facility] ([id number])[address], [address] [place] [address]WSLPLBCIECOLT METABOLIC PANELon 07-70-1931JTM [Catalytic activity/Vol]74 U/ZJzbljd39-108YrgSfedyn [facility]ney HospitalComment on above:Performed By: #### CBCA, CMP, LIVR, , 2776-04 ####[facility] ([id number])[address], [address], [place] [address]Ndulw gap [Moles/Vol]11 mmol/LNormal5-15[facility] HospitalComment on above: Performed By: #### CBCA, CMP, LIVR, , 1 ####[facility] ([id number])[address], [address] [place] [address]NKY [Catalytic activity/Vol]14 U/LNormal0-41[facility] HospitalComment on above:Performed By: #### CBCA, CMP, LIVR, , 2776-04 ####[facility] ([id number])[address], [address], [place] [address]Qqxwjov [Mass/Vol]8.6 mg/dL Normal8.5-10.5PKettering Health Behavioral Medical CenterComment on above:Performed By: #### CBCA, CMP, LIVR, , 2776-04 ####[facility] ([id number])[address], [address], [place] [address]Pevouzmq [Moles/Vol]103 mmol/YAwaotg62-897 [facility] HospitalComment on above:Performed By: #### CBCA, CMP, LIVR, , 2776-04 ####[facility] ([id number])[address] [address], [place] [address]XE1 [Moles/Vol]24 mmol/DHmiecj47-31GvhMvngnkKettering Health Behavioral Medical CenterComment on above:Performed By: #### CBCA, CMP, LIVR, , 2776-04 ####[facility] ([id number])[address] [address], [place] [address]Eiojhqdhwg [Mass/Vol]1.31 mg/dLHigh0.40-1.00[facility] Comment on above:Result Comment: METHOD TRACEABLE TO IDMS STANDARDPerformed By: #### CBCA, CMP, LIVR, , 2776-04 ####[facility] ([id number])[address] [address], [place] [address]TJI/1.73 sq M.predicted among non-blacks MDRD (S/P/Bld) [Vol rate/Area]46 mL/min/{1.73_m2}Low>59 [facility] HospitalComment on above:Result Comment: Reported eGFR is based on theCKD-EPI 2020 equation that doesnot use a race coefficient.Performed By: #### CBCA, CMP, LIVR, , 2776-04 ####[facility] ([id number])[address], [address], [place] [address]Ikycgrs [Mass/Vol]87 mg/dL Qrgnmi20-54VstIfeoktRegency Hospital CompanyComment on above:Performed By: #### CBCA, CMP, LIVR, , 2776-04 ####[facility] ([id number])[address], [address], [place] [address]Rybiawb [Mass/Vol]5.1 g/dLLow6.0-8.0 [facility] HospitalComment on above:Performed By: #### CBCA, CMP, LIVR, , 2776-04 ####[facility] ([id number])[address], [address], [place] [address]Zini nitrogen [Mass/Vol]14 mg/dLNormal5-27ProRegency Hospital CompanyComment on above:Performed By: #### CBCA, CMP, LIVR, , 2776-04 ####[facility] ([id number])[address], [address], [place] [address]Xsrmolf [Mass/Vol]2.9 g/dLLow3.2-5.3PKettering Health Behavioral Medical Center Comment on above:Performed By: #### CBCA, CMP, LIVR, , 2776-04 ####[facility] ([id number])[address], [address], [place] [address] Performed By: #### LIVR ####[facility] ([id number])[address], [address], [place] [address]EMD [Catalytic activity/Vol]4 U/LNormal0-31 [facility] HospitalComment on above:Performed By: #### CBCA, CMP, LIVR, , 2776-04 ####[facility] ([id number])[address], [address], [place] [address]Ndkshwpsg By: #### LIVR ####[facility] ([id number])[address], [address], [place] [address]Xygseyaou [Mass/Vol]1.4 mg/dLHigh0.3-1.2[facility] HospitalComment on above:Performed By: #### CBCA, CMP, LIVR, , 2776-04 ####[facility] ([id number])[address], [address], [place] [address]Ywzztndpf By: #### LIVR ####[facility] ([id number])[address], [address], [place] [address]IHLWVDTITGNBec 55-07-8938Vdkpm gap [Moles/Vol]8 mmol/LNormal5-15[facility] HospitalComment on above:Performed By: #### ELEC, , 2776-04 ####[facility] ([id number])[address], [address], [place] [address]Dzcedjhv [Moles/Vol]105 mmol/DJfamdb99-476JnhIbrzlx Lynn HospitalComment on above:Performed By: #### ELEC, , 2776-04 ####[facility] ([id number])[address], [address], [place] [address]UG8 [Moles/Vol]25 mmol/DGkhisb69-70GyfNqeljt Lynn HospitalComment on above:Performed By: #### ELEC, , 2776-04 ####[facility] ([id number])[address], [address], [place] [address]Fcmgyqauv [Moles/Vol]3.9 mmol/LNormal3.5-5.0 [facility] Lynn HospitalComment on above:Performed By: #### ELEC, , 2776-04 ####[facility] ([id number])[address], [address], [place] [address]Ozgchshjr By: #### CBCA, CMP, LIVR, , 2776-04 ####[facility] ([id number])[address], [address], [place] [address]Tjuqbj [Moles/Vol]138 mmol/BLhhqpb626-787JdoJonmis Lynn HospitalComment on above:Performed By: #### ELEC, , 2776-04 ####[facility] ([id number])[address], [address], [place] [address]Dcwpyzhyy By: #### CBCA, CMP, LIVR, , 2776-04 ####[facility] ([id number])[address], [address], [place] [address]Yahbu gap [Moles/Vol]7 mmol/LNormal5-15[facility] Lynn HospitalComment on above:Performed By: #### ELEC, ####[facility] ([id number])[address], [address], [place] [address]Tseqygjo [Moles/Vol]105 mmol/CWsigjy51-721JarDhdijw Lynn HospitalComment on above:Performed By: #### ELEC, ####[facility] ([id number])[address], [id number], [place] [address]GT3 [Moles/Vol]26 mmol/OCgfkgm94-08NyfIbrlpf Lynn HospitalComment on above:Performed By: #### ELEC, ####[facility] ([id number])[address], [address], [place] [address]Ilosstexu [Moles/Vol]3.9 mmol/LNormal3.5-5.0[facility] Lynn HospitalComment on above:Performed By: #### ELEC, ####[facility] ([id number])[address], [id number], [place] [address]Ximhgf [Moles/Vol]138 mmol/ZMwcuvw375-866QizXrfgvs Lynn HospitalComment on above: Performed By: #### ELEC, 74506-6 ####[facility] ([id number])[address], [id number], [place] [address]GQFLD PANELon 79-30-3573LZG [Catalytic activity/Vol]79 U/TEyzeot88-721IibNlhmus Lynn HospitalComment on above:Performed By: #### LIVR ####[facility] ([id number])[address], [place] [address]MKJ [Catalytic activity/Vol]15 U/LNormal0-41 [facility] Lynn HospitalComment on above:Performed By: #### LIVR ####[facility] ([id number])[address] [address] Bilirubin.direct [Mass/Vol]0.7 mg/dLHigh0.0-0.4Pro[facility] Lynn HospitalComment on above:Performed By: #### CBCA, CMP, LIVR, 81526-2, 2777-1 ####[facility] ([id number])[address], [address], [place] [address]Krbaassgb By: #### LIVR ####[facility] ([id number])[address], [address], [place] [address]Lcijwym [Mass/Vol]5.2 g/dLLow6.0-8.0[facility] Comment on above:Performed By: #### LIVR ####[facility] ([id number])[address], [address], [place] [address]SWTLTMDUVld 06-16-2024 Magnesium [Mass/Vol]1.8 mg/dLNormal1.8-2.6[facility] Lynn HospitalComment on above:Performed By: #### ELEC, , 2776-04 ####[facility] ([id number])[address], [address], [place] [address]Fyeqmrqvq [Mass/Vol]1.9 mg/dLNormal1.8-2.6ProLouis [facility] Centerca Carney HospitalComment on above:Performed By: #### ELEC, ####[facility] ([id number])[address], [address], [place] [address]MRQENAPGMNdy 16-88-6951Qhttadwin [Mass/Vol]2.3 mg/dLLow 2.4-4.9ProLouis [facility] Centerca Carney HospitalComment on above:Performed By: #### ELEC, , 2776-04 ####[facility] ([id number])[address], [address], [place] [address]Abtubxrgb [Mass/Vol]3.1 mg/dLNormal2.4-4.9Pro[facility] HospitalComment on above:Performed By: #### CBCA, CMP, LIVR, , 2776-04 ####[facility] ([id number])[address], [address], [place] [address]EZGOPNU AND INRon 88-65-6181AV Coag (PPP) [Time]14.5 sHigh9.8-13.2 [facility] Carney HospitalComment on above:Performed By: #### PINR, 50150-6 ####[facility] ([id number])[address], [id number], [place] [address]KDD Coag (PPP) [Relative time]1.3 {INR}High0.9-1.2[facility] Comment on above:Performed By: #### PINR, 15174-5 ####[facility] ([id number])[address], [id number], [place] [address]RA Coag (PPP) [Time]15.1 sHigh9.8-13.2[facility] Carney HospitalComment on above:Performed By: #### HUDSON, 05170-6 ####[facility] ([id number])[address], [address] [place] [place] [address]Hkkuwagedp [Mass/Vol]on 82-17-8924MCTICZJEFB83.8 ug/mLNormal 5.0-40.0ProMedica Carney HospitalComment on above:Result Comment: Peak 30-40 ug/mLTrough 5-20 ug/ml Performed By: #### 92409-6 ####[facility] ([id number])[address], [address] [place] [address] 34082QR CHEST 1 VWon 94-77-2301ZI CHEST 1 VWNormalProMediMercy Health [facility] Hospital HospitalaPTT Coag (PPP) [Time]on 10-25-6759vJUI Coag (Bld) [Time]33 s Qbmpig65-78QzgFcjnfv Carney HospitalComment on above:Performed By: #### HUDSON, 66096-5 ####[facility] ([id number])[address], [address] [place] [address] 32620zJCT Coag (Bld) [Time]32 qFyadmy48-72AglZqdwrg Carney HospitalComment on above:Performed By: #### HUDSON, 96384-4 ####[facility] ([id number])[address], [place]WVJ206DPZ[place], [place] [address]LAYVYPVZ BLOOD GASon 20-53-9870TGTMX'S TESTNormalProGenesis Hospital HospitalComment on above: Performed By: #### ABG ####[facility] ([id number])[address] [place], [place] [address]GBWE,DEFICIT6.0 MMOL/LHigh0.0-2.0[facility] Comment on above:Performed By: #### ABG ####[facility] ([id number])[address] [place], [place] [address]Ggvj efdwxvmzlxq14.6 [degF]Normal 37.0ProMedica Lynn HospitalComment on above:Performed By: #### ABG ####[facility] ([id number])[address] [facility], [place] [address]JKB8 (Bld) [Moles/Vol]17.9 mmol/VVlp15-29MynXsdhwc Lynn HospitalComment on above: Performed By: #### ABG ####[facility] ([id number])[address] [place] [place], [place] [address]DXBS. O2 CONC.40 %NormalProMedica Lynn HospitalComment on above:Performed By: #### ABG ####[facility] ([address] [place] [address])2141 [facility], [place] [address]Krhbsm (Bld) [Partial pressure]96 mm[Hg]Bgmnwj90-141 [facility] HospitalComment on above:Performed By: #### ABG ####[facility] ([id number])[address] [place], [place] [address]Plgsog saturation in Blood98.0 %Normal>90ProMedica Lynn HospitalComment on above: Performed By: #### ABG ####[facility] ([id number])[address], [place] [address]MYIXMD SOURCEVentNormalProMedica Lynn HospitalComment on above:Performed By: #### ABG ####[facility] ([id number])[address], [place] [address]NZR930.0 JPSGGtc02-36KofVajadm Lynn HospitalComment on above:Performed By: #### ABG ####[facility] ([id number])[address] [place], [place] [address]yU (Bld)7.414 [pH]Normal7.350-7.450ProMedica Carney HospitalComment on above:Performed By: #### ABG ####[facility] ([id number])[address] [place], [place] [address]ELRCGJ SITEALineNormalProMedica Carney HospitalComment on above:Performed By: #### ABG ####[facility] ([id number])[address] [place], [place] [address]NMQJUM TYPEARTERIAL NormalProMedica Carney HospitalComment on above:Performed By: #### ABG ####[facility] ([id number])[address] [place] [address] BLOOD CULTUREon 71-08-3720Ftcjagpy identified Aer cx Nom (Bld)CULTURE RESULTS NO GROWTH 5 DAYSNormalProMedica Carney HospitalCBC AND AUTO DIFFon 06-15-2024 ABSOLUTE BASOPHIL0.0 X10E9/LNormal0.0-0.2ProMedica Carney HospitalComment on above:Performed By: #### RENA, LIVR, , 2776-04, CBCA ####[facility] ([id number])[address], [address], [place] [address]OMMAAHAW NEUTROPHIL2.7 X10E9/LNormal1.5-6.6ProMedica Carney HospitalComment on above: Performed By: #### RENA, LIVR, , 2776-, CBCA ####[facility] ([id number])[address], [address], [place] [address]Dugdppnhq/100 WBC (Bld)1.2 %NormalProMedica Carney HospitalComment on above:Performed By: #### RENA, LIVR, , 2776-, CBCA ####[facility] ([id number])[address], [address], [place] [address]Rpwgvifmpwm (Bld) [#/Vol] 0.0 10*3/uLNormal0.0-0.4[facility] Hospital HospitalComment on above:Performed By: #### RENA, LIVR, , 2776-04, CBCA ####[facility] ([id number])[address], [address], [place] [address]Nntmnbnixdj/100 WBC (Bld) 0.8 %NormalProLouis Stokes Cleveland Va Medical Centerca Carney HospitalComment on above:Performed By: #### RENA, [facility] ERR, , 2776-04, CBCA ####[facility] ([id number])[address], [address], [place] [address]Dlbjmhodqjf distribution width (RBC) [Ratio] 17.3 %High11.5-15.0[facility] Hospital HospitalComment on above:Performed By: #### RENA, LIVR, , 2776-04, CBCA ####[facility] ([id number])[address], [address], [place] [address]Ywzvvfdzne (Bld) [Volume fraction]22.1 %Frx50-71FiiOywifo [place] HospitalComment on above:Performed By: #### RENA, LIVR, , 2776-04, CBCA ####[facility] ([id number])[address], [address], [place] [address]Ufgyswhsyg (Bld) [Mass/Vol] 7.6 g/dLLow11.7-15.5PFirelands Regional Medical Center HospitalComment on above:Performed By: #### RENA, LIVR, , 2776-04, CBCA ####[facility] ([id number])[address], [address], [place] [address]Mzgpxztppzw (Bld) [#/Vol] 0.7 10*3/uLLow1.0-3.5ProMedica Carney HospitalComment on above:Performed By: #### CMP, LIVR, , 2776-04, CBCA ####[facility] ([id number])[address], [address] [place] [address]Dzthghadlya/100 WBC (Bld) 19.1 %NormalProGenesis Hospital HospitalComment on above:Performed By: #### CMP, LIVR, , 2776-04, CBCA ####[facility] ([id number])[address], [address] [place] [address]YAO (RBC) [Entitic mass]32.9 feOtuciy99-68 [facility]ney HospitalComment on above:Performed By: #### CMP, LIVR, , 2776-04, CBCA ####[facility] ([id number])[address], [address] [place] [address]AWSZ (RBC) [Mass/Vol]34.6 g/jCLenyto49-74EmwJxnchp [place] HospitalComment on above:Performed By: #### CMP, LIVR, , 2776-04, CBCA ####[facility] ([id number])[address], [address] [place] [address]VHZ (RBC) [Entitic vol]95 vISwujhp40-050HpqOmrjnp [place] HospitalComment on above:Performed By: #### CMP, LIVR, , 2776-04, CBCA ####[facility] ([id number])[address], [address] [place] [address]Swidfjlyq (Bld) [#/Vol]0.3 10*3/uLNormal0-0.9[facility] HospitalComment on above: Performed By: #### CMP, LIVR, , 2777-1, CBCA ####[facility] ([id number])[address], [address], [place] [address]Cfyaofzpq/100 WBC (Bld)7.7 %NormalProMedica Carney HospitalComment on above:Performed By: #### CMP, LIVR, , 2776-04, CBCA ####[facility] ([id number])[address], [address], [place] [address]Iryeqtxyrpl/100 WBC (Bld) 71.2 %NormalProMedica Carney HospitalComment on above:Performed By: #### CMP, LIVR, , 2776-04, CBCA ####[facility] ([id number])[address], [address], [place] [address]Nwfluahi mean volume (Bld) [Entitic vol]7.1 fLNormal7-12ProMedica Carney HospitalComment on above:Performed By: #### CMP, LIVR, , 2776-04, CBCA ####[facility] ([id number])[address], [address], [place] [address]Bywgtayir (Bld) [#/Vol]93 10*3/uKRbg719-181 [facility]ney HospitalComment on above:Performed By: #### CMP, LIVR, , 2776-04, CBCA ####[facility] ([id number])[address], [address], [place] [address]TMS COUNT2.32 X10E12/LLow3.80-5.20[facility] Comment on above:Performed By: #### CMP, LIVR, , 2776-04, CBCA ####[facility] ([id number])[address], [address], [place] [address]XPM (Bld) [#/Vol]3.8 10*3/uLLow4.0-11.0[facility] HospitalComment on above: Performed By: #### CMP, LIVR, , 2776-04, CBCA ####[facility] ([id number])[address], [address], [place] [address]KNFXZHJQFQEMF METABOLIC PANELon 35-45-1673Xyxnjcm [Mass/Vol]3.3 g/dLNormal3.2-5.3Pro[facility] HospitalComment on above:Performed By: #### CMP, LIVR, , 2776-04, CBCA ####[facility] ([id number])[address], [address], [place] [address]CVT [Catalytic activity/Vol]80 U/HMawkrb62-616YyzUgwgmk Lynn HospitalComment on above:Performed By: #### CMP, LIVR, , 2776-04, CBCA ####[facility] ([id number])[address], [address], [place] [address]BSB [Catalytic activity/Vol]6 U/LNormal0-31Pro[facility] HospitalComment on above:Performed By: #### CMP, LIVR, , 2776-04, CBCA ####[facility] ([id number])[address], [address], [place] [address]Qlxpf gap [Moles/Vol]12 mmol/LNormal5-15[facility] HospitalComment on above:Performed By: #### CMP, LIVR, , 2776-04, CBCA ####[facility] ([id number])[address], [address], [place] [address]UOT [Catalytic activity/Vol]12 U/LNormal0-41Pro[facility] HospitalComment on above:Performed By: #### CMP, LIVR, , 2776-04, CBCA ####[facility] ([id number])[address] [address], [place] [address]Mcddgjgnx [Mass/Vol]2.0 mg/dLHigh0.3-1.2PFirelands Regional Medical Center HospitalComment on above:Performed By: #### RENA, LIVR, , 2776-04, CBCA ####[facility] ([id number])[address], [address], [place] [address]Mgbhuej [Mass/Vol]8.7 mg/dL Normal8.5-10.5PFirelands Regional Medical Center HospitalComment on above:Performed By: #### RENA, LIVR, , 2776-04, CBCA ####[facility] ([id number])[address], [address], [place] [address]Alrrweza [Moles/Vol]100 mmol/BTzziew14-169 ProMRegency Hospital Cleveland EastComment on above:Performed By: #### RENA, LIVR, , 2776-04, CBCA ####[facility] ([id number])[address] [address], [place] [address]RM4 [Moles/Vol]22 mmol/QJpbgsr72-11TteHgwglz [place] [facility] Comment on above:Performed By: #### RENA, LIVR, , 2776-04, CBCA ####[facility] ([id number])[address] [address], [place] [address] Creatinine [Mass/Vol]2.42 mg/dLHigh0.40-1.00ProMediLicking Memorial HospitalComment on above:Result Comment: METHOD TRACEABLE TO IDMS STANDARDPerformed By: #### RENA, LIVR, , 2776-04, CBCA ####[facility] ([id number])[address] [address], [place] [address]OQW/1.73 sq M.predicted among non-blacks MDRD (S/P/Bld) [Vol rate/Area]22 mL/min/{1.73_m2}Low>59ProReg[facility] Comment on above:Result Comment: Reported eGFR is based on theCKD-EPI 2020 equation that doesnot use a race coefficient.Performed By: #### HAMIDA CHASE, , 2776-04, CBCA ####[facility] ([id number])[address], [address], [place] [address]Laxaemz [Mass/Vol]98 mg/lUQkacet20-74 [facility]icPro[facility] HospitalComment on above:Performed By: #### RENA, LIVChristos, , 2776-04, CBCA ####[facility] ([id number])[address] [address], [place] [address]Gnamvrz [Mass/Vol]5.1 g/dLLow6.0-8.0[facility] HospitalComment on above:Performed By: #### RENA LIVChristos, , 2776-04, CBCA ####[facility] ([id number])[address] [address], [place] [address]Rgdxiv [Moles/Vol]134 mmol/DSkiels031-802ZleGkeyag [place] HospitalComment on above:Performed By: #### HAMIDA CHASE, , 2776-04, CBCA ####[facility] ([id number])[address] [address], [place] [address]Mxvk nitrogen [Mass/Vol]29 mg/dLHigh5-27[facility] HospitalComment on above:Performed By: #### RENA, LIVR, , 2776-04, CBCA ####[facility] ([id number])[address] [address] [place] [address]MJGSMGYCXSTDnj 06-15-2024 CO2 [Moles/Vol]24 mmol/WLtdool21-09QjvTxkvdo [place] HospitalComment on above: Performed By: #### ELEC, , 2776-04 ####[facility] ([id number])[address], [address], [place] [address]Lrikgyecc [Moles/Vol]3.6 mmol/LNormal3.5-5.0[facility] HospitalComment on above:Performed By: #### ELEC, , 2776-04 ####[facility] ([id number])[address], [address], [place] [address]Eiyqex [Moles/Vol]137 mmol/ACsjgwg888-793 [facility] HospitalComment on above:Performed By: #### ELEC, , 2776-04 ####[facility] ([id number])[address], [address], [place] [address]Slfcp gap [Moles/Vol]11 mmol/LNormal5-15[facility] HospitalComment on above:Performed By: #### ELEC, , 2776-04 ####[facility] ([id number])[address], [address], [place] [address] Performed By: #### ELEC, , ####[facility] ([id number])[address], [address], [place] [address]Sownsuab [Moles/Vol]102 mmol/XEdppzz34-404GdmAilxwc Lynn HospitalComment on above:Performed By: #### ELEC, , 2776-04 ####[facility] ([id number])[address], [address], [place] [address]Mwgjbrckj By: #### ELEC, , ####[facility] ([id number])[address], [address], [place] [address]JK2 [Moles/Vol]23 mmol/BAlfzzn41-16WfqJexuoh Lynn HospitalComment on above:Performed By: #### ELEC, , ####[facility] ([id number])[address], [address] [place] [address]Kkfdjf [Moles/Vol]136 mmol/LLlajgq267-442DinMikzrt Carney HospitalComment on above:Performed By: #### ELEC, , ####[facility] ([id number])[address], [address] [place] [address]AQNtj 63-14-4738Giosrwcqww (Bld) [Volume fraction]22.7 %Uvp85-54HtyFqhuts [facility]ney HospitalComment on above:Performed By: #### HH ####[facility] ([id number])[address] [address] [place] [address]Fjbizkmbid (Bld) [Mass/Vol]7.7 g/dLLow11.7-15.5Pro[facility]ney HospitalComment on above:Performed By: #### HH ####[facility] ([id number])[address] [address] [place] [address]NDXJP PANELon 71-45-7578Qiltfmdxh.direct [Mass/Vol]0.9 mg/dLHigh0.0-0.4Pro[facility]ney HospitalComment on above:Performed By: #### CMP, LIVR, , 2776-04, CBCA ####[facility] ([id number])[address] [address] [place] [address]XPZOUFYAMhk 34-00-3460Merpovytw [Mass/Vol]1.9 mg/dLNormal1.8-2.6[facility] HospitalComment on above:Performed By: #### ELEC, , 2776-04 ####[facility] ([id number])[address] [address], [place] [address]Dctzrtqud By: #### CMP, LIVR, , 2776-04, CBCA ####[facility] ([id number])[address], [address] [address]Dbtpgujss [Mass/Vol]2.0 mg/dLNormal1.8-2.6Pro[facility] HospitalComment on above: Performed By: #### ELEC, , 62492-8 ####[facility] ([id number])[address], [address] [address]HCQMIUAVJRju 06-15-2024 Phosphate [Mass/Vol]2.2 mg/dLLow2.4-4.9[facility] HospitalComment on above:Performed By: #### ELEC, , 2776-04 ####[facility] ([id number])[address], [address], [place] [address]Vexabvdro [Mass/Vol]3.8 mg/dLNormal2.4-4.9Pro[facility] HospitalComment on above:Performed By: #### CMP, LIVR, , 2776-04, CBCA ####[facility] ([id number])[address], [address] [address]WYOPRWOILhb 06-15-2024 Potassium [Moles/Vol]3.8 mmol/LNormal3.5-5.0[facility] HospitalComment on above:Performed By: #### 2823-3 ####[facility] ([id number])[address], [address], [place] [address]Ubdtxnjif By: #### CMP, LIVR, , 2776-04, CBCA ####[facility] ([id number])[address], [address], [place] [address]Tfxpgjbrm By: #### ELEC, , ####[facility] ([id number])[address], [address], [place] [address]PSLRVYN AND INRon 78-08-0069GX Coag (PPP) [Time]15.2 sHigh9.8-13.2 [facility] HospitalComment on above:Performed By: #### HUDSON, 95337-0 ####[facility] ([id number])[address], [place], [place] [address]SND Coag (PPP) [Relative time]1.3 {INR}High0.9-1.2PKettering Health Behavioral [facility] Comment on above:Performed By: #### HUDSON, 60195-1 ####[facility] ([id number])[address], [place]QYO471[place], [place] [address]LG Coag (PPP) [Time]15.3 sHigh9.8-13.2PKettering Health Behavioral Medical CenterComment on above:Performed By: #### HUDSON, 00572-8 ####[facility] ([id number])[address], [address], [place] [address]Knyvjstcyc [Mass/Vol]on 72-80-0196CGODJFWXOI97.0 ug/mLNormal 5.0-40.0[facility] HospitalComment on above:Result Comment: Peak 30-40 ug/mLTrough 5-20 ug/ml Performed By: #### 60993-2 ####[facility] ([id number])[address], [address], [place] [address]IBTREWAWSK38.4 ug/mLNormal5.0-40.0[facility] Comment on above:Result Comment: Peak 30-40 ug/mLTrough 5-20 ug/ml Performed By: #### ELEC, 66215-2, 84594-8 ####[facility] ([id number])[address] [facility], [address], [place] [address]JZ CHEST 1 VWon 44-67-0731CQ CHEST 1 VWNormalProMedica Guernsey Memorial HospitalaPTT Coag (PPP) [Time]on 38-23-6856zIYG Coag (Bld) [Time]38 sHigh 26-37Pro[facility] HospitalComment on above:Performed By: #### PINChristos, 42796-5 ####[facility] ([id number])[address] [facility], [place], [place] [address]EIMXQVSM BLOOD GASon 00-15-4639XLWAJ'S TESTPassNormalProMedica Lynn HospitalComment on above:Performed By: #### ABG ####[facility] ([id number])[address] [place], [place] [address]RHLF,DEFICIT8.0 MMOL/LHigh0.0-2.0 [facility]ney HospitalComment on above:Performed By: #### ABG ####[facility] ([id number])[address] [place], [place] [address]Dnbo vunsrpjbnpr87.6 [degF]Pkgtiq77.0Pro[facility] HospitalComment on above: Performed By: #### ABG ####[facility] ([id number])[address] [place], [place] [address]YNX6 (Bld) [Moles/Vol]18.8 mmol/YMxc27-44StsXgjtry Lynn HospitalComment on above:Performed By: #### ABG ####[facility] ([id number])[address] [place], [place] [address]FSEV. O2 CONC.40 %NormalProMedica Lynn HospitalComment on above:Performed By: #### ABG ####[facility] ([id number])[address] [place], [place] [address]Zljaqf (Bld) [Partial pressure]118 mm[Hg]Hcdg18-339QmeInpkbg [facility] HospitalComment on above:Performed By: #### ABG ####[facility] ([id number])[address] [place], [place] [address]Tdjgcv saturation in Blood98.0 %Normal>90Pro[facility]ica [facility]ney HospitalComment on above:Performed By: #### ABG ####[facility] ([id number])[address] [place], [place] [address]WITANP SOURCEVentNormalProGenesis Hospital HospitalComment on above:Performed By: #### ABG ####[facility] ([address] [place] [address])[address] [place], [place] [address]RCT865.7 MIQXLncc20-65 [facility] HospitalComment on above:Performed By: #### ABG ####[facility] ([address] [place] [address])[address] [place], [place] [address]vK (Bld)7.223 [pH]Low7.350-7.450[facility] HospitalComment on above:Performed By: #### ABG ####[facility] ([address] [place] [address])[address]141 [place] [address] SAMPLE SITELRadNormalProLouis Stokes Cleveland Va Medical Centerca Carney HospitalComment on above:Performed By: #### ABG ####[facility] ([address] [place] [address])[address]141 [facility], [place] [address]XGOLZP TYPEARTERIALNormalProLouis Stokes Cleveland Va Medical Centerca Carney HospitalComment on above: Performed By: #### ABG ####[facility] ([id number])[address] [facility], [place] [address]XOZMU METABOLIC PANLon 17-09-9420Vzjsc gap [Moles/Vol]10 mmol/LNormal5-15[facility] HospitalComment on above:Performed By: #### PIPO, LIVR ####[facility] ([id number])[address] [address], [place] [address]Usqtnzx [Mass/Vol]8.0 mg/dLLow8.5-10.5Pro[facility]ney HospitalComment on above:Performed By: #### BMP, LIVR ####[facility] ([id number])[address], [address], [place] [address]Uscpthfn [Moles/Vol]100 mmol/MTatlmh58-323KtaIzpjwe [facility] HospitalComment on above: Performed By: #### PIPO, LIVR ####[facility] ([id number])[address] [address], [place] [address]Ipqcwbecxo [Mass/Vol]3.64 mg/dLHigh0.40-1.00 [facility] HospitalComment on above:Result Comment: METHOD TRACEABLE TO IDAK STANDARDPerformed By: #### PIPO, LIVR ####[facility] ([id number])[address] [address]ASI/1.73 sq M.predicted among non-blacks MDRD (S/P/Bld) [Vol rate/Area]14 mL/min/{1.73_m2}Low>59 ProMgreene county hospitala Carney HospitalComment on above:Result Comment: Reported eGFR is based on theCKD-EPI 2020 equation that doesnot use a race coefficient.Performed By: #### BMP, LIVR ####[facility] ([id number])[address] [address], [place] [address]Ijzzctk [Mass/Vol]97 mg/jRKikrru73-61ZvySrrmkf Carney HospitalComment on above:Performed By: #### BMP, LIVR ####[facility] ([id number])[address] [address] [place] [address]Atzkeshnl [Moles/Vol]4.8 mmol/LNormal3.5-5.0ProRegency Hospital CompanyComment on above: Performed By: #### PIPO, LIVR ####[facility] ([id number])[address], [address], [place] [address]Pjjvqv [Moles/Vol]131 mmol/UOja054-141 [facility]ney HospitalComment on above:Performed By: #### PIPO, LIVR ####[facility] ([id number])[address], [address] [place] [address]Mnmo nitrogen [Mass/Vol]42 mg/dLHigh5-27ProRegency Hospital CompanyComment on above:Performed By: #### PIPO, LIVR ####[facility] ([id number])[address], [address] [place] [address]PIP AND AUTO DIFFon [id number] BASOPHIL0.1 X10E9/LNormal0.0-0.2PKettering Health Behavioral [facility] Comment on above:Performed By: #### CBCA ####[facility] ([id number])[address], [address] [place] [address]IAKSLDAS NEUTROPHIL4.3 X10E9/LNormal1.5-6.6Ohio[facility] Doctors HospitalComment on above:Performed By: #### CBCA ####[facility] ([id number])[address], [address] [place] [address]Ksnrozabm/100 WBC (Bld)0.9 %NormalOhioHealth Doctors Hospital Comment on above:Performed By: #### CBCA ####[facility] ([id number])[address], [address] [place] [address], [place] [address]Ynffeosawqa (Bld) [#/Vol] 0.0 10*3/uLNormal0.0-0.4ProMedica Lynn HospitalComment on above:Performed By: #### CBCA ####[facility] ([id number])[address], [address], [place] [address]Qvuxhtbrfhb/100 WBC (Bld)0.1 %NormalOhioHealth Doctors Hospital Comment on above:Performed By: #### CBCA ####[facility] ([id number])[address], [address], [place] [address]Vfhttjnehum distribution width (RBC) [Ratio]16.9 %High11.5-15.0ProLouis Stokes Cleveland Va Medical Centerca Carney HospitalComment on above: Performed By: #### CBCA ####[facility] ([id number])[address] [address], [place] [address]Sgwlrimdvd (Bld) [Volume fraction]23.1 %Low 35-47ProLouis Stokes Cleveland Va Medical Centerca Carney HospitalComment on above:Performed By: #### CBCA ####[facility] ([id number])[address] [address], [place] [address]Yhoxtchxgd (Bld) [Mass/Vol]7.5 g/dLLow11.7-15.5PKettering Health Behavioral Medical Center Comment on above:Performed By: #### CBCA ####[facility] ([id number])[address] [address], [place] [address]Reeuqqsufmp (Bld) [#/Vol] 0.6 10*3/uLLow1.0-3.5PFirelands Regional Medical Center HospitalComment on above:Performed By: #### CBCA ####[facility] ([id number])[address] [address] [place] [address]Tfhbsssiwnm/100 WBC (Bld)11.5 %NormalProGenesis Hospital HospitalComment on above:Performed By: #### CBCA ####[facility] ([id number])[address], [address], [place] [address]SWK (RBC) [Entitic mass]32.8 amJzlxjo53-79ZfrDgintj Lynn HospitalComment on above:Performed By: #### CBCA ####[facility] ([id number])[address], [address] [place] [address]EZNQ (RBC) [Mass/Vol]32.4 g/sZPnepwk16-90RmyBhzsro Lynn HospitalComment on above:Performed By: #### CBCA ####[facility] ([id number])[address] [address], [address] [place] [address] 06835VUZ (RBC) [Entitic vol] 101 jAYuzw86-912AkxFvfgtv Lynn HospitalComment on above:Performed By: #### CBCA ####[facility] ([id number])[address], [address] [place] [address] 44301Ctksfdjvv (Bld) [#/Vol]0.4 10*3/uLNormal0-0.9ProMedica Lynn HospitalComment on above:Performed By: #### CBCA ####[facility] ([id number])[address], [address] [place] [address] 27425Rqdwkdgaw/100 WBC (Bld) 6.8 %NormalProMedica Lynn HospitalComment on above:Performed By: #### CBCA ####[facility] ([id number])[address], [address] [place] [address] 38607Ydsejokzpjn/100 WBC (Bld)80.7 %NormalProMedica Lynn HospitalComment on above:Performed By: #### CBCA ####[facility] ([id number])[address], [address] [place] [address] 69006Qqleobbb mean volume (Bld) [Entitic vol]7.2 fLNormal7-12ProMedica Lynn HospitalComment on above:Performed By: #### CBCA ####[facility] ([id number])[address], [address], [place] [address]Ojdfmlknc (Bld) [#/Vol]148 10*3/hGSjf338-790AtsTfdraxOhioHealth Doctors Hospital Comment on above:Performed By: #### CBCA ####[facility] ([id number])[address], [address] [place], [place] [address]KBG COUNT2.28 X10E12/LLow 3.80-5.20ProRegency Hospital CompanyComment on above:Performed By: #### CBCA ####[facility] ([id number])[address], [address] [place], [place] [address]DIO (Bld) [#/Vol]5.3 10*3/uLNormal4.0-11.0ProRegency Hospital CompanyComment on above:Performed By: #### CBCA ####[facility] ([id number])[address], [address] [place] [address] 68997BNDCBWTF BASOPHIL0.0 X10E9/LNormal0.0-0.2PKettering Health Behavioral Medical CenterComment on above:Performed By: #### CBCA, CMP, 76574-6, 7-1, TSHR, 3024-7, 5196-1, 5193-8, 4679-7, 48307-3 ####[facility] ([id number])[address], [address] [place] [address] 51639DZQRWVWN NEUTROPHIL3.8 X10E9/LNormal1.5-6.6[facility] Comment on above:Performed By: #### CBCA, CMP, 42672-9, 2777-1, TSHR, 3024-7, 5196-1, 5193-8, 4679-7, 46180-2 ####[facility] ([id number])[address], [address] [place], [place] [address]Ghsbrimxd/100 WBC (Bld)0.7 %NormalProRegency Hospital CompanyComment on above:Performed By: #### CBCA, CMP, 14021-8, 2777-1, TSHR, 3024-7, 5196-1, 5193-8, 4679-7, 52531-5 ####[facility] ([id number])[address], [address] [place] [address] 28005 Eosinophils (Bld) [#/Vol]0.0 10*3/uLNormal0.0-0.4[facility] Comment on above:Performed By: #### CBCA, CMP, 31445-8, 2777-1, TSHR, 3024-7, 5196-1, 5193-8, 4679-7, 04443-2 ####[facility] ([id number])[address], [address] [place] [address] 77700Yampifnvisc/100 WBC (Bld) 0.3 %NormalProGenesis Hospital HospitalComment on above:Performed By: #### CBCA, CMP, 29092-7, 2777-1, TSHR, 3024-7, 5196-1, 5193-8, 4679-7, 37102-3 ####[facility] ([id number])[address], [address] [place] [address] 54945 Erythrocyte distribution width (RBC) [Ratio]16.8 %High11.5-15.0OhioHealth Doctors HospitalComment on above:Performed By: #### CBCA, CMP, 55572-6, 2777-1, TSHR, 3024-7, 5196-1, 5193-8, 4679-7, 52934-4 ####[facility] ([id number])[address], [address] [place] [address] 76811Brqtgaixjd (Bld) [Volume fraction]23.6 %Apq12-71YwgWdlmxt [place] HospitalComment on above:Performed By: #### CBCA, CMP, 56396-9, 2777-1, TSHR, 3024-7, 5196-1, 5193-8, 4679-7, 23588-4 ####[facility] ([id number])[address], [address] [place] [address] 66600Bzrtywexpc (Bld) [Mass/Vol]7.6 g/dLLow11.7-15.5PKettering Health Behavioral Medical Center Comment on above:Performed By: #### CBCA, CMP, 19933-8, 2777-1, TSHR, 3024-7, 5196-1, 5193-8, 4679-7, 77739-6 ####[facility] ([id number])0 [facility], [address] [place] [address] 32379Jcbhhlfrphb (Bld) [#/Vol] 0.5 10*3/uLLow1.0-3.5PKettering Health Behavioral Medical CenterComment on above:Performed By: #### CBCA, CMP, 92745-3, 2777-1, TSHR, 3024-7, 5196-1, 5193-8, 4679-7, 44260-5 ####[facility] ([id number])0 [facility], [address] [place] [address] 99526Slwvfytrurn/100 WBC (Bld)9.8 %NormalProRegency Hospital CompanyComment on above:Performed By: #### CBCA, CMP, 27038-7, 2777-1, TSHR, 3024-7, 5196-1, 5193- 8, 4679-7, 45715-6 ####[facility] ([id number])[address], [address] [place] [address] 38950OMS (RBC) [Entitic mass]32.7 luDvewfg96-12ToqVlpxnk [place] HospitalComment on above:Performed By: #### CBCA, CMP, 43927-9, 2777-1, TSHR, 3024-7, 5196-1, 5193-8, 4679-7, 69340-2 ####[facility] ([id number])[address], [address], [place] [address]WVYW (RBC) [Mass/Vol]32.0 g/fTJfnsqx71-03HiyFbrebb [place] HospitalComment on above:Performed By: #### CBCA, CMP, 79532-7, 2777-1, TSHR, 3024-7, 5196-1, 5193-8, 4679-7, 19991-5 ####[facility] ([id number])[address], [address] [place] [address] 08266DAR (RBC) [Entitic vol]102 gMQbsm30-745YzlXryhqmRegency Hospital CompanyComment on above:Performed By: #### CBCA, CMP, 45015-9, 2777-1, TSHR, 3024-7, 5196-1, 5193- 8, 4679-7, 27755-1 ####[facility] ([id number])[address], [address] [place] [address] 29493Pqseqegmx (Bld) [#/Vol]0.4 10*3/uLNormal0-0.9OhioHealth Doctors HospitalComment on above:Performed By: #### CBCA, CMP, 71108-6, 2777-1, TSHR, 3024-7, 5196-1, 5193-8, 4679-7, 30312-8 ####[facility] ([id number])[address], [address] [place] [address] 34318Pkeefpttx/100 WBC (Bld)9.1 %NormalProRegency Hospital CompanyComment on above:Performed By: #### CBCA, CMP, 73783-7, 2777-1, TSHR, 3024-7, 5196-1, 5193-8, 4679-7, 94583-3 ####[facility] ([id number])[address], [address] [place] [address] 42507 Neutrophils/100 WBC (Bld)80.1 %NormalProGenesis Hospital HospitalComment on above: Performed By: #### CBCA, CMP, 96569-0, 2777-1, TSHR, 3024-7, 5196-1, 5193-8, 4679-7, 01166-8 ####[facility] ([id number])[address], [address], [place] [address]Gfdufbzl mean volume (Bld) [Entitic vol]7.3 fLNormal 7-12ProMedica Carney HospitalComment on above:Performed By: #### CBCA, CMP, 13636-1, 2777-1, TSHR, 3024-7, 5196-1, 5193-8, 4679-7, 28842-5 ####[facility] ([id number])[address], [address] [place] [address] 45463 Platelets (Bld) [#/Vol]138 10*3/eKVpa976-561PceQpqofd [place] HospitalComment on above:Performed By: #### CBCA, CMP, 81637-3, 2777-1, TSHR, 3024-7, 5196-1, 5193- 8, 4679-7, 41153-7 ####[facility] ([id number])[address], [address] [place] [address] 39267ABB COUNT2.31 X10E12/LLow3.80-5.20[facility] HospitalComment on above:Performed By: #### CBCA, CMP, 61585-8, 2777-1, TSHR, 3024-7, 5196-1, 5193-8, 4679-7, 95488-5 ####[facility] ([id number])[address], [address] [place] [address] 46617CDQ (Bld) [#/Vol]4.8 10*3/uLNormal4.0-11.0Pro[facility] Hospital HospitalComment on above:Performed By: #### CBCA, CMP, 72011-9, 2777-1, TSHR, 3024-7, 5196-1, 5193-8, 4679-7, 85276-7 ####[facility] ([id number])[address], [address] [place] [address] 79397VPDKQAGYFA PROFILEon 24-91-7740YACSAZUMKF C369 mg/kSLvs02-848QbtYrgoeh Lynn HospitalComment on above:Performed By: #### C34, SIFE, SPE, 03572-8, 39211-9 ####[facility] ([id number])[address], [address] [place] [address] 92542BWUUEGYHGI C413 mg/wIMki30-35IufKvvuex Lynn HospitalComment on above:Performed By: #### C34, SIFE, SPE, 16790-3, 22694-3 ####[facility] ([id number])[address], [address] [place] [address] 61351 COMPREHENSIVE METABOLIC PANELon 72-19-2652Ixkmbyj [Mass/Vol]3.1 g/dLLow3.2-5.3 [facility] Lynn HospitalComment on above:Performed By: #### CBCA, CMP, 10873-6, 2777-1, TSHR, 3024-7, 5196-1, 5193-8, 4679-7, 62925-8 ####[facility] ([id number])[address], [address] [place] [address] 75391OWI [Catalytic activity/Vol]119 U/YEslpal94-713PdoMwbptw Lynn HospitalComment on above: Performed By: #### CBCA, CMP, 45197-3, 2777-1, TSHR, 3024-7, 5196-1, 5193-8, 4679-7, 40349-6 ####[facility] ([id number])[address], [address] [place] [address] 84723UCM [Catalytic activity/Vol]6 U/LNormal0-31Pro[facility] Lynn HospitalComment on above:Performed By: #### CBCA, CMP, 54920-6, 2777-1, TSHR, 3024-7, 5196-1, 5193-8, 4679-7, 46301-1 ####[facility] ([id number])[address], [address], [place] [address]Miofb gap [Moles/Vol]10 mmol/LNormal5-15ProReg[facility] Hospital CompanyComment on above:Performed By: #### CBCA, CMP, 18755-2, 2777-1, TSHR, 3024-7, 5196-1, 5193-8, 4679-7, 15936-6 ####[facility] ([id number])[address], [address], [place] [address]AKO [Catalytic activity/Vol]12 U/LNormal0-41[facility] Comment on above:Performed By: #### CBCA, CMP, 18357-8, 2777-1, TSHR, 3024-7, 5196-1, 5193-8, 4679-7, 53034-6 ####[facility] ([id number])[address], [address], [place] [address]Gessmqbjt [Mass/Vol]0.8 mg/dLNormal0.3-1.2PFirelands Regional Medical Center HospitalComment on above:Performed By: #### CBCA, CMP, 11678-1, 2777-1, TSHR, 3024-7, 5196-1, 5193-8, 4679-7, 77055-2 ####[facility] ([id number])[address], [address], [place] [address]Izvogow [Mass/Vol]7.9 mg/dLLow8.5-10.5PKettering Health Behavioral Medical CenterComment on above:Performed By: #### CBCA, CMP, 54099-0, 2777-1, TSHR, 3024-7, 5196-1, 5193- 8, 4679-7, 38504-2 ####[facility] ([id number])[address], [address], [place] [address]Soprshns [Moles/Vol]98 mmol/UAjqrhw13-114GrhQsjbho [place] HospitalComment on above:Performed By: #### NAMITA, RENA, 71722-5, 2777-1, TSHR, 3024-7, 5196-1, 5193-8, 4679-7, 11243-8 ####[facility] ([id number])[address], [address], [place] [address]DL4 [Moles/Vol]20 mmol/LLow 22-32PKettering Health Behavioral Medical CenterComment on above:Performed By: #### NAMITA, RENA, 31931-2, 2777-1, TSHR, 3024-7, 5196-1, 5193-8, 4679-7, 31992-3 ####[facility] ([id number])[address], [address] [place] [address] 50666 Creatinine [Mass/Vol]3.45 mg/dLHigh0.40-1.00ProReg[facility] Hospital CompanyComment on above:Result Comment: METHOD TRACEABLE TO IDMS STANDARDPerformed By: #### NAMITA, RENA, 27035-2, 2777-1, TSHR, 3024-7, 5196-1, 5193-8, 4679-7, 22787-4 ####[facility] ([id number])[address], [address] [place] [address] 28218 GFR/1.73 sq M.predicted among non-blacks MDRD (S/P/Bld) [Vol rate/Area]15 mL/min/{1.73_m2}Low>59ProReg[facility] Hospital CompanyComment on above:Result Comment: Reported eGFR is based on theCKD-EPI 2020 equation that doesnot use a race coefficient.Performed By: #### NAMITA, CMP, 68632-7, 2777-1, TSHR, 3024-7, 5196-1, 5193-8, 4679-7, 63575-5 ####[facility] ([id number])[address], [address], [place] [address]Kohyfdb [Mass/Vol]91 mg/gSKddydq04-84 [facility] Carney HospitalComment on above:Performed By: #### CBCA, CMP, 13617-4, 2776-1, TSHR, 3024-7, 5196-1, 5193-8, 4679-7, 64779-6 ####[facility] ([id number])[address], [address], [place] [address]Odzzyloef [Moles/Vol]4.7 mmol/LNormal3.5-5.0ProReg[facility] Hospital CompanyComment on above: Performed By: #### CBCA, CMP, 68859-5, 2776-1, TSHR, 3024-7, 5196-1, 5193-8, 4679-7, 61427-1 ####[facility] ([id number])[address], [address], [place] [address]Bvymqxh [Mass/Vol]5.9 g/dLLow6.0-8.0ProReg[facility] Hospital CompanyComment on above:Performed By: #### CBCA, CMP, 96581-9, 7-1, TSHR, 3024-7, 5196-1, 5193-8, 4679-7, 15840-5 ####[facility] ([id number])[address], [address], [place] [address] [Moles/Vol]128 mmol/GPhg040-035WsqDlnubjRegency Hospital CompanyComment on above:Performed By: #### CBCA, CMP, 43097-8, 7-1, TSHR, 3024-7, 5196-1, 5193-8, 4679-7, 24858-1 ####[facility] ([id number])[address] [place] [address], [address] [place] [address] 46[address]Jjxg nitrogen [Mass/Vol]43 mg/dLPleasant Valley Hospital547 Wheeler StreetComment on above:Performed By: #### CBCA, CMP, 95058-0, 2777-1, TSHR, 3024-7, 5196-1, 5193-8, 4679-7, 63727-7 ####[facility] ([id number])[address] [place] [address], [address] [place] [address] 65903IF ABDOMEN AND PELVIS WO CONTon 88-84-4040QL ABDOMEN AND PELVIS WO CONTNormalProRegency Hospital CompanyCT CHEST WO CONTon 66-05-5438IW CHEST WO CONTNoBethesda North HospitalCT NECK SOFT TISSUE WO CONTon 27-16-4914VB NECK SOFT TISSUE WO [facility] Clinical Pathologyon 61-81-5216Rpukzyaa PathologyCleveland Clinic [facility] Comment on above:Result Comment: [facility] [address] [place] [address] Clinical Pathology ReportPatient Name:ORESTES ALVARES:1965 (Age: 59)Gender:FTaken:06/14/2024Reported:06/17/2024Physician(s):Katarina Yu M.D. ([phone])Copy To: Rec. #:[id number]: #[id number] Pathologic DiagnosisMonoclonal protein in gamma region, 0.2 g/dL, IgG kappa.Mild hypoalbuminemia. Report Electronically Signed Outdf/06/17/2024Eben Pappas MDInterpretation performed [place] [address], License number: [id number].Clinical AptcpcmX58.91, J96.01, J96.00.SERUM PROTEIN ELECTROPHORESISSAMPLE NO: [id number] FRACTION CONCENTRATIONS (g/dL) PATIENT REFERENCE RANGEAlbumin 3.2 L 3.4 - 5.3Alpha-1 globulin 0.4 0.1 - 0.4Alpha-2 globulin 0.5 0.4 - 1.1Beta globulin 0.9 0.5 - 1.2Gamma globulin 1.0 0.5 - 1.61 0.2Total protein 6.0 6.0 - 8.0(Electrophoretic gels and densitometric tracings on file in lab.)SERUM IEPIMMUNOGLOBULIN LEVELS (mg/dL): IgG : 1039 IgA : 568 IgM : 162 Free [place]: 22.41 Free Lambda: 13.82 Free [place]/Lambda ratio: 1.62Specimen(s) Received1: Serum Protein Electrophoresis2: Serum IEPFee Codes(s):1;94389-673; 30437-58Wqclrx Comment: [facility] [address] [place] [address] Tel: Clinical Pathology ReportPatient Name:ORESTES ALVARES:1965 (Age: 59)Gender:FTaken:06/14/2024Reported:06/17/2024Physician(s):Katarina Yu M.D. ([phone])Copy To: Rec. #:[id number]: #[id number] Pathologic DiagnosisSerum like pattern suggestive of non- selective proteinuria.No monoclonal protein identified. Report Electronically Signed Outdf/06/17/2024Eben Pappas MDInterpretationperformed at [place] [address], License number: [id number].Clinical ObqsyfrY14.91, J96.01, J96.00.URINE PROTEIN ELECTROPHORESISSAMPLE NUMBER: [id number] ELECTROPHORETIC CONCENTRATIONS (%) ? 100.0 Urine Protein 820 mg/L(Electrophoretic gels and densitometric tracings on file in lab.)Specimen(s) Received Urine Protein ElectrophoresisFee Codes(s):1; 90688-04Kjdizigh Pathology Blood Smear Reviewon 58-78-1204Iudnjwga Pathology Blood Smear ReviewNormalProLouis Stokes Cleveland Va Medical Centerca [facility] Memorial HospitalComment on above: Result Comment: [facility] [address] [place] [address] Clinical Pathology ReportPatient Name:ORESTES ALVARES:1965 (Age: 59)Gender:FTaken:06/14/2024Reported:06/19/2024Physician(s):[facility] To: Rec. #:[id number]: #[id number] Pathologic DiagnosisPeripheral smear review:- Marked macrocytic anemia [...] Electronically Signed Outduvall/06/19/2024Jamar Hammond MDInterpretation performed at [facility], [address] [place] [address], License number: [id number].Clinical History___BLOODSMEAR EVALUATIONCBC (06/14/2024 0245): WBC: 4.8 x 109/L RBC: 2.31 x 1012/L Hgb: 7.6 g/dL MCV: 102 fL RDW: 16.8 Platelets: 138 x 109/LAutomated differential: Neutrophils: 3.8 x 109/L Lymphs: 0.5 x 109/L Monos: 0.4 x 109/L Eos: 0.0 x 109/L Basos: 0.0 x 109/LOther lab data: N/ABlood smear:WBC: NormalRBC: Marked macrocytic anemia with mild anisocytosisPlatelets: Borderline thrombocytopenia with smallforms and no clumpsSpecimen(s) Received Blood Smear ReviewFee Codes(s):1; 80242 ELECTROLYTESon 30-39-3823Velwj gap [Moles/Vol]13 mmol/LNormal5-15[facility] HospitalComment on above:Performed By: #### ELEC, , 2776-04 ####[facility] ([id number])[address], [address], [place] [address]Smrbzrbhf [Moles/Vol]4.0 mmol/LNormal3.5-5.0[facility] Comment on above:Performed By: #### ELEC, , 2776-04 ####[facility] ([id number])[address], [address], [place] [address]Pgfyaj [Moles/Vol]135 mmol/NXistgp385-801VosHswhke Lynn HospitalComment on above: Performed By: #### ELEC, , 2776-04 ####[facility] ([id number])[address], [address], [place] [address]Crrxx gap [Moles/Vol]12 mmol/LNormal5-15[facility] HospitalComment on above:Performed By: #### DEV TREVIÑO, ELEC, , 2776-04 ####[facility] ([id number])[address], [address], [place] [address]Wpvjvkhq [Moles/Vol]101 mmol/AZijbrk55-088RzfLksqqi Lynn HospitalComment on above:Performed By: #### ELEC, , 2776-04 ####[facility] ([id number])[address], [address], [place] [address]Ktkavnyqt By: #### DEV TREVIÑO, ELEC, , 2776-04 ####[facility] ([id number])[address], [address], [place] [address]GA0 [Moles/Vol]20 mmol/OFyt59-11VgcWydrovKettering Health Behavioral Medical Center Comment on above:Performed By: #### DEV TREVIÑO, ELEC, , 2776-04 ####[facility] ([id number])[address], [address], [place] [address] Potassium [Moles/Vol]4.3 mmol/LNormal3.5-5.0ProReg[facility] Hospital CompanyComment on above:Performed By: #### PINR, DEV, ELEC, , 2776-04 ####[facility] ([id number])[address], [address], [place] [address]Dvzwnu [Moles/Vol]133 mmol/VEzd741-261KnqPfrvjq [place] HospitalComment on above: Performed By: #### DEV TREVIÑO, ELEC, , 2776-04 ####[facility] ([id number])[address], [address], [place] [address]MO3 [Moles/Vol]21 mmol/FEzx62-77WpcErdryi [place] HospitalComment on above:Performed By: #### ELEC, , 2776-04 ####[facility] ([id number])[address], [address], [place] [address]Mamfnocup By: #### BMP, LIVR ####[facility] ([id number])[address], [address], [place] [address]JCTLHHMGbk 94-91-2323Flherzmb [Mass/Vol]42 ng/nXLxujjy77-971BahHgxuqg [facility] Comment on above:Performed By: #### FEPR, 2276-4, 12480-6, TSHR, 2284-8, 2132-9, 3024-7, 2532-0 ####[facility] ([id number])[address], [address], [place] [address]MTZW LIGHT CHAINSon 06-11-0669UEUQ POONAM/LAMBD RATIO1.62 Normal0.26-1.65[facility] HospitalComment on above:Performed By: #### C34, SIFE, SPE, 90938-5, 07130-0 ####[facility] ([id number])[address], [address], [place] [address]UPTS KAPPA LT BDNGOM69.41 mg/dLHigh0.33-1.94 ProMUniversity Hospitals [facility] HospitalComment on above:Performed By: #### C34, SIFE, SPE, 94840-5, 93323-3 ####[facility] ([id number])[address] [facility], [address], [place] [address]HZYT LAMBDA LT IZTGDX04.82 mg/dLHigh0.57-2.63[facility] HospitalComment on above:Performed By: #### C34, SIFE, SPE, 05269-6, 22603-7 ####[facility] ([id number])[address], [address], [place] [address]EUID T4on 91-38-2809Oerl T4 [Mass/Vol]0.58 ng/dLLow0.61-1.60 [facility] HospitalComment on above:Performed By: #### FEPR, 2276-4, 81030-5, TSHR, 2284-8, 2132-9, 3024-7, 2532-0 ####[facility] ([id number])[address], [address], [place] [address]Exad T4 [Mass/Vol]0.50 ng/dLLow0.61-1.60[facility] HospitalComment on above:Performed By: #### CBCA, CMP, 42694-5, 2777-1, TSHR, 3024-7, 5196-1, 5193-8, 4679-7, 55968-2 ####[facility] ([id number])[address] [place] [address], [address] [address]Qmvwiy [Mass/Vol]on 66-53-7955ZECWA ACID11.1 ng/mLNormal>5.8[facility] Doctors HospitalComment on above:Result Comment: NEW REFERENCE RANGEPerformed By: #### FEPR, 2276-4, 39585-1, TSHR, 2284-8, 2132-9, 3024-7, 2532-0 ####[facility] ([id number])[address] [place] [address], [address] [place] [address] Glomerular basement membrane IgG Qn (S)on 50-05-4592WCT IgG Ab<0.2Normal<1.0 [facility] EastComment on above:Performed By: #### C34, SIFE, SPE, 69119-1, 26579-5 ####[facility] ([id number])[address] [place] [address]FVN core Ab IA Qlon 05-57-1964TTOF HBcReactiveAbnormal NRCTProRegency Hospital CompanyComment on above:Result Comment: NEW TEST METHOD Performed By: #### CBCA, CMP, 20976-2, 2777-1, TSHR, 3024-7, 5196-1, 5193-8, 4679-7, 49360-1 ####[facility] ([id number])[address] [place] [address]TQA surface Ab IA Qnon 02-26-5035Bstg HBs quant.<3.00 NormalProRegency Hospital CompanyComment on above:Result Comment: NOTEVaccinated: >=10.00 mIU/mL, Positive (Immune)Unvaccinated: <10.00 mIU/mL,Negative (Not Immune)Interpretive values have changed due to implementation of anew method. Values run higher than previous method.Performed By: #### CBCA, CMP, 32925-3, 2777-1, TSHR, 3024-7, 5196-1, 5193-8, 4679-7, 83506-1 ####[facility] ([id number])[address], [address], [place] [address]DAY surface Ag IA Qlon 25-19-4212CQXOWUUAY B SURF AGNon-ReactiveNormalNRCTProGenesis Hospital HospitalComment on above:Result Comment: NEW TEST METHODPerformed By: #### CBCA, CMP, 24436-1, 2776-, TSHR, 3024-7, 5196-1, 5193-8, 4679-7, 00424-5 ####[facility] ([id number])[address], [address] [place] [address]IFEwl 14-81-8742Ycugrqcgat (Bld) [Volume fraction]21.1 %Glm00-81GzoIfbyzo [place] HospitalComment on above:Performed By: #### PINR, HH, ELEC, , 2776-04 ####[facility] ([id number])[address], [address], [place] [address]Ygqliibnjq (Bld) [Mass/Vol]6.9 g/dLCritically low11.7-15.5[facility] HospitalComment on above:Performed By: #### PINR, HH, ELEC, , 2776-04 ####[facility] ([id number])[address], [address] [place] [address]Epexcbvmvjf Nephelometry [Mass/Vol]on 90-21-6613FQOQDENYNTY52 mg/dLNormal 32-228[facility] HospitalComment on above:Performed By: #### FEPR, 2276-4, 91823-0, TSHR, 2284-8, 2-9, 3024-7, 2532-0 ####[facility] ([id number])[address], [address], [place] [address]BQKT PROFILEon 06-14-2024 Iron [Mass/Vol]118 ug/zGOaphiv80-076EsnXlaviy [place] HospitalComment on above: Performed By: #### FEPR, 2276-4, 10102-7, TSHR, 2284-8, 2132-9, 3024-7, 2532-0 ####[facility] ([id number])[address], [address], [place] [address]OVOT OPFXOAJ004 ug/oYBuibgt197-580WqxObybpg [place] HospitalComment on above:Performed By: #### FEPR, 2276-4, 38206-8, TSHR, 2284-8, 2-9, 3024-7, 2532-0 ####[facility] ([id number])[address], [address] [place] [address]IUBI SPHEGYBKCE87 % BVGVAOIBWHXsyxuw98-34XvfUvmsjw [place] HospitalComment on above:Performed By: #### FEPR, 2276-4, 69246-7, TSHR, 4-8, 2-9, 3024-7, 2532-0 ####[facility] ([id number])[address], [address] [place] [address]DMF [Catalytic activity/Vol]on 23-33-7602LJX 127 U/VQxbdif880-705GdjRuyuqn [place] HospitalComment on above:Performed By: #### FEPR, 2276-4, 18827-3, TSHR, 2284-8, 2-9, 3024-7, 2532-0 ####[facility] ([id number])[address], [address] [place] [address]LLQDO PANELon 92-83-3356Rznoxes [Mass/Vol]3.2 g/dLLow3.4-5.3[facility] HospitalComment on above:Performed By: #### BMP, LIVR ####[facility] ([id number])[address], [address] [place] [address]Hqydanodm By: #### C3Caroline, SIFE, SPE, 05427-4, 99388-9 ####[facility] ([id number])[address], [address], [place] [address]GEN [Catalytic activity/Vol]110 U/LNormal 39-130[facility] HospitalComment on above:Performed By: #### BMP, LIVR ####[facility] ([id number])[address], [address], [place] [address]HYK [Catalytic activity/Vol]4 U/LNormal0-31[facility] HospitalComment on above:Performed By: #### BMP, LIVR ####[facility] ([id number])[address], [address], [place] [address]OIN [Catalytic activity/Vol]12 U/LNormal0-41ProLouis Stokes Cleveland Va Medical Centerca Carney HospitalComment on above:Performed By: #### BMP, LIVR ####[facility] ([id number])[address], [address], [place] [address]Peaabwgri [Mass/Vol]0.8 mg/dLNormal0.3-1.2PFirelands Regional Medical Center HospitalComment on above:Performed By: #### BMP, LIVR ####[facility] ([id number])[address], [address], [place] [address] Bilirubin.direct [Mass/Vol]0.4 mg/dLNormal0.0-0.4[facility] Hospital Comment on above:Performed By: #### BMP, LIVR ####[facility] ([id number])[address], [address], [place] [address]Jgrvfbb [Mass/Vol]5.7 g/dL Low6.0-8.0[facility] HospitalComment on above:Performed By: #### BMP, LIVR ####[facility] ([id number])[address], [address], [place] [address]ZJNBP RESPIRATORY CULTUREon 89-97-8134Vzgitaux identified Respiratory culture Nom (Sput)GRAM STAIN 0 WHITE BLOOD CELLS/LPF 0 SQUAMOUS EPITHELIAL CELLS/LPF 0 CILIATED EPITHELIAL CELLS/LPF NO ORGANISMS SEEN CULTURE RESULTS NORMAL ORAL FLORANormalProLouis Stokes Cleveland Va Medical Centerca Carney HospitalComment on above:Performed By: #### 624-7 ####[facility] ([id number])[address], [address] [place] [address]FXRXTRVGSeu 31-78-4898Wxwmagxxm [Mass/Vol]2.1 mg/dLNormal 1.8-2.6[facility] HospitalComment on above:Performed By: #### ELEC, , 2776-04 ####[facility] ([id number])[address], [address] [place] [address]Bnzbiykwd [Mass/Vol]1.7 mg/dLLow1.8-2.6[facility] HospitalComment on above:Performed By: #### PINR, HH, ELEC, , 2776-04 ####[facility] ([id number])[address] [address] [place] [address]Kdmdlnoqh [Mass/Vol]3.5 mg/dLHigh1.8-2.6[facility] HospitalComment on above:Performed By: #### CBCA, CMP, , 2776-04, TSHR, 3024-7, 5196-1, 5193-8, 4679-7, 59134-0 ####[facility] ([id number])[address], [address] [place] [address]Ifkabrbqu Ionized ISE (Bld) [Moles/Vol]on 46-99-1221Vmngzsbtd [Moles/Vol]0.54 mmol/LNormal0.45-0.74[facility] HospitalComment on above:Result Comment: NEW REFERENCE RANGEPerformed By: #### 83995-3 ####[facility] ([id number])[address], [address], [place] [address]Pytnchsjdi cytoplasmic Ab panel IF (S)on 74-14-7549e-ANCA NegativeNormalNegativeProLouis Stokes Cleveland Va Medical Centerca [facility]ern[facility] Memorial HospitalComment on above:Performed By: #### C34, SIFE, SPE, 35372-4, 01121-3 ####[facility] ([id number])[address], [address] [place] [address] 92478b-BYDMOqzcdwbpYkmnky NegativeProRegency Hospital CompanyComment on above:Result Comment: NOTENegative for cANCA and pANCA patterns by immunofluorescence. ADDITIONAL INFORMATION This test was developed and its performance characteristicsdetermined by [facility] in a manner consistent with CLIArequirements. This test has not been cleared or approved bythe U.S. Food and Drug Administration.Test Performed by:[address] Director: Alan Boothe Ph.D.; CLIA# [id number] By: #### C34, SIFE, SPE, 04948-5, 95290-5 ####[facility] ([id number])[address] [address]Xlgxdyd Ab IA Ql (S)on 98-76-5597SWS Screen w/reflexNegative NormalNEGProRegency Hospital CompanyComaspirus ironwood hospital on above:Result Comment: Testing performed using multiplex flowimmunoassay. Eleven different antigensassociated with systemic autoimmunediseases (dsDNA,Sm,Sm/SHOP TECH,SHOP TECH,Chromatin,SSA,SSB,Keesha- 1,Scl70,Ribo P,Centromere B)are included in this screening test.Performed By: #### C34, SIFE, SPE, 25668-7, 34170-6 ####[facility] ([id number])[address] [facility], [address] [place] [address]HTMKGQAMCFfm 06-14-2024 Phosphate [Mass/Vol]5.1 mg/dLHigh2.4-4.9ProLouis [facility] Medical Centerca Carney HospitalComment on above:Performed By: #### ELEC, , 2776-04 ####[facility] ([id number])[address], [address] [place] [address]Gpcdpvprx [Mass/Vol]6.2 mg/dLHigh2.4-4.9[facility]ney HospitalComment on above:Performed By: #### PINR, HH, ELEC, , 2776-04 ####[facility] ([id number])[address], [address] [place] [address]Bijprlljo [Mass/Vol]7.0 mg/dLHigh2.4-4.9[facility] HospitalComment on above:Performed By: #### CBCA, CMP, , 2776-04, TSHR, 3024-7, 5196-1, 5193-8, 4679-7, 41565-2 ####[facility] ([id number])[address] [address] [place] [address] 98638ZNODPYY CREAT RATIOon 06-28-6141MUEBUH URINE EUSZXSN629 mg/LHigh<120 [facility] HospitalComment on above:Performed By: #### UA, UPCR ####[facility] ([id number])[address] [address] [place] [address] U/PRO/FELT HAT STEAMER RATIO CALC2.20High<0.2Pro[facility]ica Carney HospitalComment on above:Result Comment: Nephrotic Syndrome is associated with ratios >3.5Performed By: #### UA, UPCR ####[facility] ([id number])[address], [address] [place] [address]RAMRN CREATININE,RDM39.08 mg/dLNormalProLouis Stokes Cleveland Va Medical Centerca Carney HospitalComment on above:Performed By: #### UA, UPCR ####[facility] ([id number])[address] [address], [place] [address]FCEAFRF AND INR on 45-81-8159ZN Coag (PPP) [Time]17.0 sHigh9.8-13.2PKettering Health Behavioral Medical Center Comment on above:Performed By: #### PINR, 06897-1 ####[facility] ([id number])[address], [place] [address]CSE Coag (PPP) [Relative time]1.5 {INR}High0.9-1.2PKettering Health Behavioral Medical CenterComment on above:Performed By: #### PINR, 40677-3 ####[facility] ([id number])[address] [address]Wdudeoale By: #### PINR, HH, ELEC, , 2777-1 ####[facility] ([id number])[address] [place] [address], [place] [address]TB Coag (PPP) [Time]16.7 sHigh9.8-13.2PKettering Health Behavioral Medical CenterComment on above:Performed By: #### PINR, HH, ELEC, , 2776-1 ####[facility] ([id number])[address] [address]Kxyxuuibvad review Pathologist comment (Bld) [Interp]on 75-87-8992ZRSMR REVIEWNOTENormalProMedica Guernsey Memorial HospitalComment on above:Result Comment: [facility] [address] [address] Clinical Pathology ReportPatient Name:ORESTES ALVARES:1965 (Age:59)Gender:FTaken:06/14/2024Reported:06/19/2024Physician(s):Vernell Tracey To: Rec. #:[id number]:#[id number] Pathologic DiagnosisPeripheral smear review:- Marked macrocytic anemia and borderline thrombocytopenia C/W liverdiseaseCommentThe CBC and smear review is significant for mild lymphopenia withnormal morphology, marked macrocytic anemia with no anisocytosis andborderline thrombocytopenia with small forms and no clumps.Features of myelodysplastic neoplasm (MDS), megaloblastic, irondeficiency and hemolytic anemia or anemia of chronic kidney diseaseare not seen. Therefore, the anemia, lymphopenia andthrombocytopenia areprobably secondary to alcoholic liver disease.Clinical correlation is appreciated. Report Electron ically Signed Outduvall/06/19/2024Jamar Hammond MDInterpretation performed at [facility], [address] [place] [address], License number: [id number].Clinical History___BLOOD SMEAR EVALUATIONCBC (06/14/2024 0245): WBC: 4.8 x 109/L RBC: 2.31 x 1012/L Hgb: 7.6g/dL MCV: 102 fL RDW: 16.8 Platelets: 138 x 109/LAutomated differential: Neutrophils: 3.8 x 109/L Lymphs: 0.5 x109/L Monos: 0.4x 109/L Eos: 0.0 x 109/L Basos: 0.0 x 109/LOther lab data: N/ABlood smear:WBC: NormalRBC: Marked macrocytic anemia with mild anisocytosisPlatelets: Borderline thrombocytopenia with small forms and noclumpsSpecimen(s) ReceivedBlood Smear ReviewFee Codes(s):1; [address]Gdacbplcwnulz/100 RBC (Bld)on 79-27-1622WJRSEEGPZCJR COUNT2.2 %Normal0.4-2.2[facility] HospitalComment on above:Performed By: #### CBCA, CMP, 26440-9, 2777-1, TSHR, 3024-7, 5196-1, 5193-8, 4679-7, 63677-4 ####[facility] ([id number])[address], [address] [place] [address]HSEUQ IMMUNOFIXATIONon 52-18-8926HkP [Mass/Vol]568 mg/dFExlf71-563DbrQxfdoq Lynn HospitalComment on above:Performed By: #### C34, SIFE, SPE, 07346-4, 13057-9 ####[facility] ([id number])[address], [address] [place] [address] 16591TcO [Mass/Vol]1039 mg/dL Wsgwmj875-9841TyeBrsxoq [facility] HospitalComment on above:Performed By: #### C34, SIFE, SPE, 99969-9, 64440-1 ####[facility] ([id number])[address], [address] [place] [address] 12906WpX [Mass/Vol]162 mg/pOZnommx67-949PfwCtyvvj [facility] HospitalComment on above:Performed By: #### C34, SIFE, SPE, 05087-6, 12037-8 ####[facility] ([id number])[address], [address] [place] [address] 89483WYWJHO PROFILE INTERPSEE SEPARATE REPORTNormalProMedica Lynn HospitalComment on above:Performed By: #### C34, SIFE, SPE, 62251-8, 29666-7 ####[facility] ([id number])[address], [address] [place] [address] 275[address]UNBFS PROTEIN ELECTROPHORESISon 09-99-1025SQJZX 1 GLOBULIN0.4 g/dLNormal0.1-0.4[facility] HospitalComment on above:Performed By: #### C34, SIFE, SPE, 76386-3, 42137-2 ####[facility] ([id number])[address], [address] [place] [address] 53570YLTLO 2 GLOBULIN0.5 g/dL Normal0.4-1.1[facility] HospitalComment on above:Performed By: #### C34, SIFE, SPE, 11689-8, 64688-7 ####[facility] ([id number])[address], [address] [place] [address]DKME GLOBULIN0.9 g/dLNormal0.5-1.2[facility] HospitalComment on above:Performed By: #### Anjum, SIFE, SPE, 43822-0, 45000-8 ####[facility] ([id number])[address], [address], [place] [address]ERQVH GLOBULIN1.0 g/dLNormal0.5-1.6[facility] Hospital Comment on above:Performed By: #### Anjum, SIFE, SPE, 28903-6, 73504-4 ####[facility] ([id number])[address], [address] [place] [address] 26337AZDJ. ELECTROPHORESIS INTERPSEE SEPARATE REPORTNormalProLouis Stokes Cleveland Va Medical Centerca Carney HospitalComment on above:Performed By: #### Anjum, SIFE, SPE, 83414-2, 05303-6 ####[facility] ([id number])[address], [address] [place] [address] Protein [Mass/Vol]6.0 g/dLNormal6.0-8.0ProLouis Stokes [facility] Centerca Carney HospitalComment on above:Performed By: #### C34, SIFE, SPE, 22678-2, 85184-8 ####[facility] ([id number])[address], [address] [place] [address]BRW WITH REFLEX on 74-99-3720RJM57.30 uIU/mLHigh0.49-4.67[facility] HospitalComment on above:Performed By: #### FEPR, 2276-4, 96745-5, TSHR, 2284-8, 2132-9, 3024-7, 2532-0 ####[facility] ([id number])[address], [address] [place] [address] 425[address]VPA75.51 uIU/mLHigh0.49-4.67[facility] HospitalComment on above:Performed By: #### CBCA, CMP, 45878-6, 2777-1, TSHR, 3024-7, 5196-1, 5193-8, 4679-7, 88499-6 ####[facility] ([id number])[address], [address] [place] [address] 29311INUKSDRHZGjn 71-28-9141Notkjrzed Ql (U) NegativeNormalNEGProMedica Carney HospitalComment on above:Performed By: #### SHANITA, UPCR ####[facility] ([id number])[address], [address] [place] [address] 51877BVEBP/HGBLargeAbnormalNEGProLouis Stokes Cleveland Va Medical Centerca Carney HospitalComment on above:Performed By: #### UA, UPCR ####[facility] ([id number])[address], [address] [place] [address] 41890Duban (U)YELLOWNormalYELLOW [facility] HospitalComment on above:Performed By: #### UA, UPCR ####[facility] ([id number])[address], [address] [place] [address] Glucose Ql (U)NegativeNormalNEGProLouis Stokes Cleveland Va Medical Centerca Carney HospitalComment on above: Performed By: #### UA, UPCR ####[facility] ([id number])[address], [address] [place] [address], [place] [address]Yuywmxa casts LM Ql (Urine sed)10 /lpfHigh 0-2[facility] HospitalComment on above:Performed By: #### UA, UPCR ####[facility] ([id number])[address], [address] [place] [address], [place] [address]Xbqjcjm Ql (U)NegativeNormalNEGProMedica Lynn HospitalComment on above: Performed By: #### SHANITA, UPCR ####[facility] ([id number])[address], [address] [place] [address] 78582Gmathvrom esterase Test strip Ql (U)Large AbnormalNEGProMedica Carney HospitalComment on above:Performed By: #### SHANITA, UPCR ####[facility] ([id number])[address], [address], [place] [address]RYPCXAWHKGEBVPwejvuqhPSUODlbLhnpsw Carney HospitalComment on above: Performed By: #### SHANTIA, UPCR ####[facility] ([id number])[address], [address] [place] [address] 13932Qecjffq Ql (U)NegativeNormalNEGProMedica Carney HospitalComment on above:Performed By: #### SHANITA, UPCR ####[facility] ([id number])[address], [address], [place] [address]dE (U)5.5 [pH] Normal5.0-8.5Pro[facility] HospitalComment on above:Performed By: #### SHANITA, UPCR ####[facility] ([id number])[address], [address], [place] [address]Uykilye Ql (U)50 mg/dLAbnormalNEGProMedica Carney HospitalComment on above:Performed By: #### SHANITA, UPCR ####[facility] ([id number])[address], [address], [place] [address]W.B.YNDZJ321 /hpfHigh0-5 [facility] HospitalComment on above:Performed By: #### SHANITA, UPCR ####[facility] ([id number])[address], [address] [address] Specific gravity (U) [Rel density]1.153Gizmdn2.003-1.035Pro[facility] HospitalComment on above:Performed By: #### UA, UPCR ####[facility] ([id number])[address], [address] [place] [address] 63889UHLSYSDH EPITHELIUM2 /hpfNormal0-5[facility] HospitalComment on above:Performed By: #### UA, UPCR ####[facility] ([id number])[address], [address] [place] [address]WNSVBLYVAERG EPITH<4Wcmb5IhhLmvbmr Carney HospitalComment on above:Performed By: #### UA, UPCR ####[facility] ([id number])[address], [address] [place] [address] 62957FQRBEQGXPHLBRZnuezcenIUNGV [facility] HospitalComment on above:Performed By: #### UA, UPCR ####[facility] ([id number])[address] [address] [place] [address] Urinalysis dipstick W Reflex Microscopic panel (U)URINE RECEIVED WITHOUT PRESERVATIVE-DELAYS IN TRANSPORT MAY AFFECT RESULTS.INTERPRET WITH CAUTION AND CLINICAL CORRELATION IS RECOMMENDED.NormalProGenesis Hospital HospitalComment on above:Performed By: #### UA, UPCR ####[facility] ([id number])[address] [address] [place] [address] 469[address]Tvduyyfvsgvw (U) [Mass/Vol] mg/dLNormal<1.1[facility] HospitalComment on above:Performed By: #### UA, UPCR ####[facility] ([id number])[address] [address] [place] [address]B.B.CELLS69 /hpfHigh0-5PFirelands Regional Medical Center HospitalComment on above: Performed By: #### UA, UPCR ####[facility] ([id number])[address] [address] [place] [address] 92775GQWLG CULTUREon 46-87-2901Oeowiaoy identified Cx Nom (U)SPECIMEN NOTES URINE RECEIVED WITHOUT PRESERVATIVE CULTURE RESULTS NO GROWTH AT <1000 CFU/mLNormalProMedica Lynn HospitalComment on above: Performed By: #### 630-4 ####[facility] ([id number])[address] [facility], [address], [place] [address]OAXQE PROTEIN ELECTROPHORESISon 06-14-2024 UPREL INTERPSEE SEPARATE REPORTNormalProMedica Lynn HospitalUS RETROPERITONEAL COMPLETEon 58-51-7394UG RETROPERITONEAL COMPLETENormalProMedica [facility] VENOUS BLOOD GASon 90-75-5863NOZSV'S TESTNormalProMedica Lynn HospitalComment on above:Performed By: #### VBG ####[facility] ([id number])[address] [place], [place] [address]WTSQ,DEFICIT9.0 MMOL/LHigh0.0-2.0[facility] HospitalComment on above:Performed By: #### VBG ####[facility] ([id number])[address] [place], [place] [address]Oyvq hhkjvwoqqqc44.6 [degF]Normal 37.0[facility] HospitalComment on above:Performed By: #### VBG ####[facility] ([id number])[address] [place], [place] [address]MXO4 (Bld) [Moles/Vol]19.9 mmol/LLow20.0-24.0[facility] HospitalComment on above: Performed By: #### VBG ####[facility] ([id number])[address] [place], [place] [address]HOCI. O2 CONC.100 %NormalProMedica Lynn HospitalComment on above:Performed By: #### VBG ####[facility] ([id number])[address] [place], [place] [address]Geofsy saturation in Blood91.0 %Normal>80.0[facility] HospitalComment on above:Performed By: #### VBG ####[facility] ([id number])[address] [place], [place] [address]NRAFWI SOURCEVentNormal [facility] HospitalComment on above:Performed By: #### VBG ####[facility] ([id number])[address] [place], [place] [address]FEY2, VENOUS 56.6 COIAKmce96-69TflRgdgcp Lynn HospitalComment on above:Performed By: #### VBG ####[facility] ([id number])[address] [place] [address] PH, VENOUS7.161Knl3.320-7.420ProMedica Carney HospitalComment on above:Performed By: #### VBG ####[facility] ([id number])[address] [place], [place] [address]RK7, TEVRTH19 SGQTHtjw64-16NwlPoxgwz Lynn HospitalComment on above:Performed By: #### VBG ####[facility] ([id number])[address] [place], [place] [address]SNZALN SITEN/ANormalProMedica Lynn HospitalComment on above:Performed By: #### VBG ####[facility] ([id number])[address] [place], [place] [address]QIFNYE TYPEVENOUSNormalProMedica Lynn Hospital Comment on above:Performed By: #### VBG ####[facility] ([id number])[address] [place], [place] [address]YNEOFER B12on 64-70-2420Ohimvyesu (Vitamin B12) [Mass/Vol]1093 pg/kTQbzp416-617SwcNispxm Lynn HospitalComment on above:Performed By: #### FEPR, 2276-4, 18424-2, TSHR, 2284-8, 2132-9, 3024-7, 2532-0 ####[facility] ([id number])[address], [place] [address]XI CHEST 1 VWon 40-12-4530QM CHEST 1 VWNormalProRegency Hospital CompanyXR CHEST 1 [facility] HospitalalProRegency Hospital CompanyaPTT Coag (PPP) [Time]on 27-62-9791jIWW Coag (Bld) [Time]45 vSkfj62-67HikSpcvxc [place] HospitalComment on above:Performed By: #### PINR, 19506-5 ####[facility] ([id number])[address], [place], [place] [address]GEETQ CULTUREon 06-13-2024 Bacteria identified Aer cx Nom (Bld)NormalProRegency Hospital CompanyComment on above:Performed By: #### 53661-8 ####[facility] ([id number])[address], [address] [place] [address] 19093Ykgzgeto identified Aer cx Nom (Bld)SPECIMEN NOTES SUBOPTIMAL VOLUME OF BLOOD COLLECTED, RESULTS MAY BE AFFECTED. CULTURE RESULTS NO GROWTH 5 DAYSNormalOhioHealth Doctors HospitalComment on above:Performed By: #### 29027-1 ####[facility] ([id number])[address], [address] [place] [address] 14[address]GXM AND AUTO DIFFon 89-52-4005PZIQNALP BASOPHIL0.0 X10E9/L Normal0.0-0.2[facility]Med[facility] HospitalComment on above:Performed By: #### CBCA, CMP, 92711-6, 2777-1, 55270-5, 53130-1, PINR, 35128-6 ####[facility] ([id number])[address], [address] [place] [address] 46927WBKUJCXF NEUTROPHIL3.7 X10E9/LNormal1.5-6.6ProRegency Hospital CompanyComment on above: Performed By: #### CBCA, CMP, 13124-6, 2777-1, 18226-8, 61721-1, PINR, 54327-4 ####[facility] ([id number])[address], [address], [place] [address]Rakwvpdev/100 WBC (Bld)0.3 %NormalProGenesis Hospital HospitalComment on above:Performed By: #### CBCA, CMP, 80669-2, 2777-1, 22160-7, 22510-9, PINR, 94562-7 ####[facility] ([id number])[address] [address] [place] [address]Sputjkzhniv (Bld) [#/Vol]0.0 10*3/uLNormal0.0-0.4ProRegency Hospital CompanyComment on above:Performed By: #### CBCA, CMP, 90554-0, 2777-1, 47051-0, 43708-2, PINR, 69863-1 ####[facility] ([id number])[address] [address], [place] [address]Mrwlmjmlkcf/100 WBC (Bld) 0.2 %NormalProGenesis Hospital HospitalComment on above:Performed By: #### CBCA, CMP, 89803-1, 2777-1, 14323-2, 06590-0, PINR, 51172-6 ####[facility] ([id number])[address], [address] [place] [address]Skjcswrelvh distribution width (RBC) [Ratio]16.8 %High11.5-15.0[facility] Comment on above:Performed By: #### CBCA, CMP, 33600-0, 2777-1, 81650-6, 87347- 0, PINR, 64775-8 ####[facility] ([id number])[address], [address] [place] [address] 51893Ftsinbqhfc (Bld) [Volume fraction]24.9 %Vfo71-02 [facility] HospitalComment on above:Performed By: #### CBCA, CMP, 68420-8, 2777-1, 44997-8, 74886-3, PINR, 79654-0 ####[facility] ([id number])[address], [address], [place] [address]Stikyfdulf (Bld) [Mass/Vol] 8.2 g/dLLow11.7-15.5[facility] HospitalComment on above:Performed By: #### CBCA, CMP, 86982-2, 2777-1, 77541-8, 08275-5, PINR, 33877-7 ####[facility] ([id number])[address], [address], [place] [address]Kpohadhutyj (Bld) [#/Vol]0.4 10*3/uLLow1.0-3.5[facility] HospitalComment on above: Performed By: #### CBCA, CMP, 85935-1, 2777-1, 55134-1, 26666-4, PINR, 57021-9 ####[facility] ([id number])[address], [address], [place] [address]Yjfrzfaqhcv/100 WBC (Bld)9.4 %NormalProGenesis Hospital HospitalComment on above:Performed By: #### CBCA, CMP, 35729-2, 2777-1, 52112-7, 93856-0, PINR, 87511-2 ####[facility] ([id number])[address], [address], [place] [address]FUF (RBC) [Entitic mass]33.0 loCwwaxl50-80AddLfeegc [place] HospitalComment on above:Performed By: #### CBCA, CMP, 07460-4, 2777-1, 61427-6, 88303-6, PINR, 77326-3 ####[facility] ([id number])[address], [address] [place] [address] 82999CQNH (RBC) [Mass/Vol]32.8 g/dZWebvns67-94 [facility] HospitalComment on above:Performed By: #### CBCA, CMP, 01108-8, 2777-1, 09850-7, 02271-7, PINR, 32489-3 ####[facility] ([id number])[address], [address] [place] [address] 56206CJP (RBC) [Entitic vol]101 jBXttt82-840GelVspift Lynn HospitalComment on above:Performed By: #### CBCA, CMP, 72340-2, 2777-1, 17580-4, 76342-9, PINR, 41103-6 ####[facility] ([id number])[address], [address] [place] [address] 95415Rcyhuovkr (Bld) [#/Vol]0.5 10*3/uLNormal0-0.9[facility] HospitalComment on above:Performed By: #### CBCA, CMP, 94202-5, 2777-1, 82765-2, 25524-2, PINR, 52509-7 ####[facility] ([id number])[address], [address] [place] [address] Monocytes/100 WBC (Bld)10.9 %NormalProMedica Lynn HospitalComment on above: Performed By: #### CBCA, CMP, 22495-5, 2777-1, 76956-7, 19206-9, PINR, 20782-6 ####[facility] ([id number])[address], [address] [place] [address]Davfwsvljfk/100 WBC (Bld)79.2 %NormalProMedica Lynn HospitalComment on above:Performed By: #### CBCA, CMP, 76200-7, 2777-1, 84193-7, 19472-4, PINR, 75266-2 ####[facility] ([id number])[address], [address] [place] [address] 24039Phvuiwch mean volume (Bld) [Entitic vol]7.2 fLNormal7-12 [facility] HospitalComment on above:Performed By: #### CBCA, CMP, 32458-1, 2777-1, 96649-4, 87125-8, PINR, 38685-8 ####[facility] ([id number])[address] [address], [address] [place] [address] 036[address]Pebtzvrtv (Bld) [#/Vol]149 10*3/eCPaa721-425QelWryhno Carney HospitalComment on above:Performed By: #### CBCA, CMP, 36574-6, 2777-1, 75054-8, 83847-5, PINR, 67358-9 ####[facility] ([id number])[address], [address] [place] [address] 70553XTD COUNT2.48 X10E12/LLow3.80-5.20ProLouis Stokes Cleveland Va Medical Centerca Carney HospitalComment on above:Performed By: #### CBCA, CMP, 39004-2, 2777-1, 44588-7, 65151-7, PINR, 28852-2 ####[facility] ([id number])[address], [address] [place] [address] 09874XFD (Bld) [#/Vol]4.7 10*3/uLNormal4.0-11.0ProMedica Carney HospitalComment on above: Performed By: #### CBCA, CMP, 40010-6, 2777-1, 28295-9, 89461-3, PINR, 66501-3 ####[facility] ([id number])[address], [address] [place] [address] 55062XSTXQAHTTPVDI METABOLIC PANELon 87-78-9989Aexxomo [Mass/Vol]3.4 g/dLNormal 3.2-5.3ProMedica Lynn HospitalComment on above:Performed By: #### CBCA, CMP, 71834-5, 2777-1, 32815-1, 12783-7, PINR, 08514-7 ####[facility] ([id number])[address], [address], [place] [address]RUL [Catalytic activity/Vol]139 U/LGeyt89-894XoiWfrdvu Lynn HospitalComment on above: Performed By: #### CBCA, CMP, 81288-5, 2777-1, 76519-0, 55572-4, PINR, 48977-9 ####[facility] ([id number])[address], [address], [place] [address]BES [Catalytic activity/Vol]4 U/LNormal0-31ProMedgrove hill memorial hospital Lynn HospitalComment on above:Performed By: #### CBCA, CMP, 64790-9, 2777-1, 25531-6, 11913-5, PINR, 22711-7 ####[facility] ([id number])[address], [address], [place] [address]Znwqk gap [Moles/Vol]12 mmol/LNormal5-15ProMedica Lynn HospitalComment on above:Performed By: #### CBCA, CMP, 14823-0, 2777-1, 33049-4, 70297-8, PINR, 11487-6 ####[facility] ([id number])[address], [address], [place] [address]PSM [Catalytic activity/Vol]15 U/LNormal0-41 ProMedica Lynn HospitalComment on above:Performed By: #### CBCA, CMP, 82058-8, 2777-1, 01598-2, 80611-5, PINR, 74151-8 ####[facility] ([id number])[address], [address], [place] [address]Rvmzkpwsv [Mass/Vol]0.9 mg/dLNormal0.3-1.2PFirelands Regional Medical Center HospitalComment on above:Performed By: #### NAMITA, CMP, 90079-7, 2777-1, 32634-3, 82905-7, PINR, 33893-5 ####[facility] ([id number])[address], [address], [place] [address]Dzhnooc [Mass/Vol]8.2 mg/dLLow8.5-10.5PKettering Health Behavioral Medical CenterComment on above: Performed By: #### NAMITA, CMP, 54692-6, 2777-1, 35321-6, 68855-3, PINR, 60280-5 ####[facility] ([id number])[address], [address], [place] [address]Ttlywmev [Moles/Vol]99 mmol/ANzdkvv09-865DjwAcsxrv [place] HospitalComment on above:Performed By: #### NAMITA, CMP, 57127-4, 2777-1, 40723-3, 19832-2, PINR, 72996-2 ####[facility] ([id number])[address], [address], [place] [address]HF6 [Moles/Vol]20 mmol/WHfd94-44SyaMrxull [place] [facility] Comment on above:Performed By: #### CBCA, CMP, 57986-8, 2777-1, 40790-7, 03328- 0, PINR, 70631-4 ####[facility] ([id number])[address], [address], [place] [address]Jlcdfanlwu [Mass/Vol]3.34 mg/dLHigh0.40-1.00ProRegency Hospital CompanyComment on above:Result Comment: METHOD TRACEABLE TO IDMS STANDARDPerformed By: #### CBCA, CMP, 78228-7, 2777-1, 71760-9, 82337-6, PINR, 35197-3 ####[facility] ([id number])[address], [address], [place] [address]AAS/1.73 sq M.predicted among non-blacks MDRD (S/P/Bld) [Vol rate/Area]15 mL/min/{1.73_m2}Low>59ProMediMercy Health Fairfield Hospital HospitalComment on above: Result Comment: Reported eGFR is based on theCKD-EPI 2020 equation that doesnot use a race coefficient.Performed By: #### RENA BREAUX, 94544-1, 2777-1, 84494-0, 34946-5, PINR, 76320-2 ####[facility] ([id number])[address], [address], [place] [address]Swibgff [Mass/Vol]85 mg/oQNtkkpj29-42 ProMedica Carney HospitalComment on above:Performed By: #### RENA BREAUX, 61987-2, 2777-1, 56268-2, 22367-0, PINR, 90052-2 ####[facility] ([id number])[address] [address], [place] [address]Aztzcphyj [Moles/Vol]4.8 mmol/LNormal3.5-5.0ProGen[facility] Hospital HospitalComment on above:Performed By: #### NAMITA, CMP, 61345-0, 2777-1, 57129-4, 07346-4, PINR, 58883-6 ####[facility] ([id number])[address], [address], [place] [address]Rmdmpvl [Mass/Vol]6.3 g/dLNormal6.0-8.0ProRegency Hospital CompanyComment on above: Performed By: #### CLARIBELA, CMP, 08313-6, 2777-1, 84364-4, 41751-5, PINR, 16114-6 ####[facility] ([id number])[address], [address], [place] [address]Bozzug [Moles/Vol]131 mmol/FMua004-556JffBiyvulRegency Hospital CompanyComment on above:Performed By: #### CBCA, CMP, 78505-5, 2777-1, 66366-3, 66366-8, PINR, 41640-3 ####[facility] ([id number])[address], [address], [place] [address]Trao nitrogen [Mass/Vol]43 mg/dLHigh5-27ProRegency Hospital CompanyComment on above:Performed By: #### CBCA, CMP, 70208-0, 2777-1, 75551-3, 89373-6, PINR, 96339-1 ####[facility] ([id number])[address], [address] [place] [address]Vgbnzjq Glucometer (BldC) [Mass/Vol]on 56-10-9537Usbjpot [Mass/Vol]88 mg/wZBjmbqq87-52LfvBizehvOhioHealth Doctors Hospital Laboratory - Chemistry and Chemistry - challengeon 76-77-6310KDC1 (Bld) [Moles/Vol]19.8 mmol/LLow22.0-26.0[facility] HospitalAmmonia (P) [Moles/Vol]59 umol/LCritically plvc89-20GzuopqpozOhio State East HospitalComment on above:RESULTS CALLED TO efra brink rn @BY Delmi Quiles sc2709Gbgfmpv [Catalytic activity/Vol]39 U/C05-466KqnsktgrgOhio State East HospitalLactate [Moles/Vol]1.1 mmol/L0.4-2.0[facility] HospitalLipase [Catalytic activity/Vol]36.0 U/L16.0-77.0[facility] HospitalMagnesium [Mass/Vol]1.0 mg/dLLow1.8-2.4FOhioHealth Grady Memorial HospitalT4 [Mass/Vol]2.20 ug/dLLow4.80-13.90[facility] HospitalTSH Qn13.271 m[IU]/LHigh 0.358-3.740[facility] HospitalLaboratory - Microbiology and Antimicrobial susceptibilityon 25-76-4078KPXL-CoV-2 (COVID-19) RNA YVONNE+probe Ql (Unsp spec)NegativeNEGATIVEOhio State East HospitalComment on above: This test has not been FDA cleared or approved, but has beenauthorized [...] the declaration isterminated or authorization is revoked sooner.Lactate (P mikey) [Moles/Vol]on 08-52-1070AQKASHJ W/REFLEX0.8 mmol/LNormal0.4-2.0[facility] Comment on above:Result Comment: Result did not trigger repeat Lactate,re-order if needed.Performed By: #### CBCA, CMP, 93464-5, 2777-1, 83824-9, 38231-5, PINR, 82002-8 ####[facility] ([id number])[address], [address], [place] [address]YEXRRAFAPda 81-22-9834Hdjuzxubc [Mass/Vol]1.0 mg/dLLow1.8-2.6 [facility] Memorial HospitalComment on above:Performed By: #### CBCA, CMP, 93736-9, 2777-1, 47721-6, 21087-1, PINR, 84441-7 ####[facility] ([id number])[address], [address], [place] [address]WSYQ PCR NASALon 06-13-2024 MRSA DNA YVONNE+probe Ql (Unsp spec)PositiveAbnormalNEGProRegency Hospital Company Comment on above:Performed By: #### 43268-4 ####[facility] ([id number])[address] [facility], [address], [place] [address]Btpglbjwqzf peptide B [Mass/Vol]on 36-78-2447Ihqqsevmbtb peptide B (Bld) [Mass/Vol]1765 pg/mLHigh <100.0ProRegency Hospital CompanyComment on above:Performed By: #### CBCA, CMP, 54123-2, 2777-1, 76497-8, 83629-1, PINR, 06713-6 ####[facility] ([id number])[address] [facility], [address] [place] [address]Zp Panel Informationon 72-08-2603Wjyvz TestPositivePOSITIVEOhio State East HospitalArterial Blood Base Excess-8.6 mmol/LLow<2.0-2.0[facility] HospitalArterial Blood Oxygen Lzvxkrjoyq82.5 %[facility] HospitalArterial Blood Partial Pressure CO253.0 mm[Hg]Critically high35.0-45.0[facility] HospitalComment on above:RESULTS CALLED TO BING PACHECORNArterial Blood Partial Pressure O2120.0 mm[Hg]High80.0-100.0[facility] Arterial Blood pH7.181Critically low7.350-7.450[facility] Comment on above:RESULTS CALLED TO BING PACHECORNBlood Gas Mode BiPAP16/8 [facility] HospitalBlood Gas Sample SiteRROhio State East HospitalBlood Gas Set Respiration Ogwf27LlfiikmvqOhio State East Hospital Blood Gas Tidal Sbwurs592MczbprekcOhio State East HospitalBlood Gas Ventilator ModeSTOhio State East HospitalFiO235 %[facility] Oxygen Delivery DeviceBIPAPOhio State East HospitalReference Lab Test #2 Result9.3FOhioHealth Grady Memorial HospitalTroponin I High Fyviwbvzqcz16.0 pg/mLCritically high4.0-51.3FOhioHealth Grady Memorial HospitalComment on above: RESULTS CALLED TO EFRA BRINKRNCUT-OFF POINTS HAVE BEEN ESTABLISHED BASED ON THE FOURTHUNIVERSAL DEFINITION OF MYOCARDIAL INFARCTION. THE UPPERREFERENCE LIMIT (URL) OF TROPONIN, DEFINED THE 99THPERCENTILE OF cTnI DISTRIBUTION IN A REFERENCE POPULATION,HAS BEEN CONFIRMED THE DECISION THRESHOLD FOR MIDIAGNOSIS.99TH PERCENTILE = 51.4 PG/MLNOTE: HIGH-SENSITIVITY TROPONIN ASSAY IS NOT INTENDEDTO BEUSED IN ISOLATION BUT SHOULD BE INTERPRETED IN CONJUNCTIONWITH OTHER DIAGNOSTIC AND CLINICAL INFORMATION.Blood Gas Liter Ewax8EnirbtiuaOhio State East HospitalVenous Blood Partial Pressure CO251.2 mm[Hg]40.0-52.0 [facility] HospitalVenous Blood pH7.229Wql7.330-7.430Ohio [facility] HospitalBedside Influenza Type A AntigenNegativeOhio State East HospitalComment on above:Negative for Flu A protein antigen. Infection due to Flu Acannot be ruled out. Flu A antigen in thesample may bebelow the detection limit of the test.Bedside Influenza Type B AntigenNegative [facility] HospitalComment on above:Negative for Flu B protein antigen. Infection due to Flu Bcannot be ruled out. Flu B antigen in thesample may bebelow the detection limit of the test.RSV RNA Qual (PCR)([facility] [place]Not detected NOT DETECTCleveland Clinic Fairview HospitalPHOSPHORUSon 40-70-6216Nwiqrezxb [Mass/Vol]6.8 mg/dLHigh2.4-4.9ProLouis Stokes Cleveland Va Medical Centerca Guernsey Memorial HospitalComment on above: Performed By: #### CBCA, CMP, 62787-5, 2777-1, 44109-4, 29583-9, PINR, 15989-6 ####[facility] ([id number])[address] [facility], [place] [address]FEWSURH AND INRon 31-04-1612KYN Coag (PPP) [Relative time]1.4 {INR}High 0.9-1.2ProMedica Guernsey Memorial HospitalComment on above:Performed By: #### CBCA, CMP, 84791-2, 2777-1, 46129-7, 69818-1, PINR, 04548-7 ####[facility] ([id number])[address], [address] [place] [address] 220[address]TV Coag (PPP) [Time] 16.3 sHigh9.8-13.2ProMedica Guernsey Memorial HospitalComment on above:Performed By: #### CBCA, CMP, 48569-9, 2777-1, 21958-5, 57075-9, PINR, 86597-7 ####[facility] ([id number])[address] [address] [place] [address]Cfkosgkccdgoi IA [Mass/Vol]on 92-59-9098RUOWAQXEUDYOB2.22 ng/mLHigh<0.05OhioHealth Doctors HospitalComment on above:Result Comment: NOTE<0.50 ng/mL - Low risk of severe sepsis and/or septic shock.<2.00 ng/mL -Recommend retesting within 6-24 hours.>2.00 ng/mL - High risk of sepsis and/or septic shock.Performed By: #### CBCA, CMP, 89934-5, 2777-1, 94760-4, 81702-9, PINR, 54568-0 ####[facility] ([id number])[address] [address] [place] [address]CEPY PATHOGENS/GKLJ-EoX-8iy 03-73-5299Drnrhizzbyt pathogens DNA and RNA panel YVONNE+non-probe (Nph)NormalProRegency Hospital CompanyComment on above:Performed By: #### 93120-8 ####[facility] ([id number])[address] [address] [place] [address]Ccfmgxtg I.cardiac High sensitivity method [Mass/Vol]on HOUR TROP I, HIGH NOBRXCXRGLG41 ng/LHigh<16ProRegency Hospital Company Comment on above:Result Comment: Elevations of hs-Troponin may be due to causesother than myocardial ischemia.Recommend serial hs-Troponin testing be performed.For the initial evaluation and management of chestpain patients, refer to the algorithms linked below.Emergency Patient:[email or web address]:[email or web address]? [email or web address]&uh=acaeaPerformed By: #### 73849-9 ####[facility] ([id number])[address], [address] [place] [address] TROPONIN I, HIGH GIZEZEJKSLM87 ng/LHigh<16ProRegency Hospital CompanyComment on above:Result Comment: Elevations of hs-Troponin may be due to causesother than myocardial ischemia.Recommend serial hs-Troponin testing be performed.For the initial evaluation and management of chestpain patients, refer to the algorithms linked below.Emergency Patient:[email or web address]?d =[email or web address]&uh=[email or web address]:[email or web address]? [email or web address]&uh=acaeaPerformed By: #### 31309-1 ####[facility] ([id number])[address], [address] [place] [address] VENOUS BLOOD GASon 93-21-9670HKMYC'S TESTNormalProLouis Stokes Cleveland Va Medical Centerca Guernsey Memorial HospitalComment on above:Performed By: #### VBG ####[facility] ([id number])[address] [place], [place] [address]WTRC,DEFICIT8.0 MMOL/LHigh0.0-2.0ProRegency Hospital CompanyComment on above:Performed By: #### VBG ####[facility] ([id number])[address] [place], [place] [address]Pxmq dnxbxmkitdw84.6 [degF]Normal 37.0ProMedica Lynn HospitalComment on above:Performed By: #### VBG ####[facility] ([id number])[address] [place], [place] [address]NMQ6 (Bld) [Moles/Vol]21.2 mmol/CIfdloq55.0-24.0ProMedica Lynn HospitalComment on above: Performed By: #### VBG ####[facility] ([address] [place] [address])[address] [place], [place] [address]YBMP. O2 CONC.40 %NormalProMedica Carney HospitalComment on above:Performed By: #### VBG ####[facility] ([id number])[address] [place], [place] [address]Ukdeaq saturation in Blood62.0 %Low>80.0ProMedica Carney HospitalComment on above:Performed By: #### VBG ####[facility] ([address] [place] [address])[address] [place], [place] [address]DSAZXY SOURCENCNormal ProMedica Carney HospitalComment on above:Performed By: #### VBG ####[facility] ([address] [place] [address])[address] [place], [place] [address]ETM3, VENOUS 62.5 AZWTDvnz14-21LuuKlmupm Carney HospitalComment on above:Performed By: #### VBG ####[facility] ([id number])[address] [place] [address] PH, VENOUS7.802Aub8.320-7.420ProMedica Carney HospitalComment on above:Performed By: #### VBG ####[facility] ([id number])[address] [facility] [place] [address]UG2, UETREN83 CSKLCvhoux85-35NtmXwcxxy [facility] Comment on above:Performed By: #### VBG ####[facility] ([id number])[address] [place], [place] [address]XCFELP SITEN/ANormalProLouis Stokes Cleveland Va Medical Centerca Carney HospitalComment on above:Performed By: #### VBG ####[facility] ([id number])[address] [place], [place] [address]KNFDQG TYPEVENOUSNormal ProMedica Carney HospitalComment on above:Performed By: #### VBG ####[facility] ([id number])[address] [place], [place] [address]FW CHEST 1 VWon 53-57-5496US CHEST 1 VWNoalOhioHealth Doctors HospitalBasophils Auto (Bld) [#/Vol]on 11-99-1229Enakwlgio (Bld) [#/Vol]Automated basophil count0.0-0.1 [facility] HospitalBasophils/100 WBC Auto (Bld)on 06-12-2024 Basophils/100 WBC (Bld)Automated basophil %0.2-2.0[facility] HospitalEosinophils/100 WBC Auto (Bld)on 23-82-8155Tgryoqyclql/100 WBC (Bld) Automated eosinophil %Low0.9-7.0[facility] HospitalErythrocyte distribution width Auto (RBC) [Ratio]on 70-57-8770Ffllweroegk distribution width (RBC) [Ratio]Erythrocyte distribution width [Ratio] by Automated countHigh 11.0-15.0[facility] HospitalEstimated glomerular filtration rate (GFR) non- Americanon 94-97-5231ABF/1.73 sq M.predicted among non-blacks MDRD (S/P/Bld) [Vol rate/Area]Estimated glomerular filtration rate (GFR) non- AmericanLow>=60 mL/min/1.73m 2FOhioHealth Grady Memorial HospitalGlobulin Calc (S) [Mass/Vol]on 56-27-3604Ewvmspoz (S) [Mass/Vol]Serum globulin measurement by calculation (mass/volume)[facility] Hematocrit Auto (Bld) [Volume fraction]on 39-39-9415Ekwtxwnqca (Bld) [Volume fraction]Hematocrit [Volume Fraction] of Blood by Automated tnijvOkn19.0-48.0 [facility] HospitalHemoglobin [Mass/volume] in Bloodon 06-12-2024 Hemoglobin (Bld) [Mass/Vol]Hemoglobin [Mass/volume] in XgexxMfb81.0-16.0 [facility] HospitalINR in Platelet poor plasma by Coagulation assayon 61-33-6109GTW Coag (PPP) [Relative time]INR in Platelet poor plasma by Coagulation assayOhio State East HospitalComment on above:DESIRED INR:2.0-3.0 CONDITIONS NOT LISTED BELOW2.5-3.5 FOR PROSTHETIC HEART VALVE REPLACEMENT2.5-3.5 RECURRENT THROMBOSISLaboratory - Chemistry and Chemistry - challengeon 53-70-2662Fonjjeo [Mass/Vol]2.7 g/dLLow3.4-5.0[facility] HospitalALP [Catalytic activity/Vol]170 U/JMpdt01-966PegxiepevOhio State East HospitalALT [Catalytic activity/Vol]11 U/VYqx82-11BapvtabnmOhio State East HospitalAST [Catalytic activity/Vol]20 U/A89-27TatsdnvjcOhio State East HospitalBilirubin [Mass/Vol]0.6 mg/dL0.2-1.0[facility] Calcium [Mass/Vol]8.2 mg/dLLow8.5-10.1FOhioHealth Grady Memorial HospitalChloride [Moles/Vol]96 mmol/AVux39-062JntqoijxbOhio State East HospitalCO2 [Moles/Vol] 18.4 mmol/LLow21.0-32.0[facility] HospitalCreatinine [Mass/Vol] 3.36 mg/dLHigh0.55-1.02[facility] HospitalGFR/1.73 sq M.predicted MDRD (S/P/Bld) [Vol rate/Area]17 mL/min/{1.73_m2}Low>=60 mL/min/1.73m 2FOhioHealth Grady Memorial HospitalGlucose [Mass/Vol]68 mg/eWAgi15-231TuqeqjzzsOhio State East HospitalLactate [Moles/Vol]2.4 mmol/LCritically high0.4-2.0[facility] HospitalComment on above:RESULTS CALLED TO DAYSI SOTO RN at 2014Natriuretic peptide B (Bld) [Mass/Vol]pg/mLCritically high<=900.0[facility] HospitalComment on above:RESULTS CALLED TO PAULINA SYED NP at otassium [Moles/Vol]4.8 mmol/L3.5-5.1FOhioHealth Grady Memorial Hospital Protein [Mass/Vol]6.9 g/dL6.4-8.2FSouthern Ohio Medical Centerodium [Moles/Vol]128 mmol/CNcf903-937YxqyiszbtOhio State East HospitalUrea nitrogen [Mass/Vol]39.0 mg/dLHigh7.0-18.0[facility] HospitalUrea nitrogen/Creatinine [Mass ratio]11.6 mg/mgOhio State East Hospital Bilirubin Ql (U)NegativeNEGSamaritan North Health CenterGlucose (U) [Mass/Vol]NegativeNEGATIVEOhio State East HospitalKetones Ql (U) NegativeNEGSamaritan North Health CenterpH (U)5.5 [pH]5.0-9.0UK Healthcarepecific gravity (U) [Rel density]1.0251.005-1.025 [facility] HospitalUrobilinogen Qn (U)0.2 {Pascale'U}/dL0.2-1.0 [facility] HospitalLaboratory - Hematology and Cell countson 92-57-4698Utqrssci granulocytes/100 WBC (Bld)1.1 %High0.0-0.5FOhioHealth Grady Memorial HospitalLaboratory - Specimen informationon 58-45-9963Xwqjzlgnnh (U)SL CLOUDYCLEARFOhioHealth Grady Memorial HospitalColor (U)YELLOWYELLOWOhio State East HospitalLaboratory - Urinalysison 59-03-3449Fmqndzmda esterase Test strip Ql (U)NegativeNEGSamaritan North Health CenterMucus Ql (Urine sed)NONE SEENNONE SEENOhio State East HospitalNitrite Ql (U) NegativeNEGSamaritan North Health CenterProtein Ql (U)>=300 mg/dL AbnormalNEG/TRACEOhio State East HospitalLeukocytes [#/volume] corrected for nucleated erythrocytes in Blood by Automated counon 59-56-3160JAA corrected for nucl RBC Auto (Bld) [#/Vol]Leukocytes [#/volume] corrected for nucleated erythrocytes in Blood by Automated coun4.0-11.0[facility] HospitalLymphocytes Auto (Bld) [#/Vol]on 61-47-7801Xwvgwhswdlb (Bld) [#/Vol]Lymphocytes [#/volume] in Blood by Automated countLow1.2-3.8[facility] HospitalLymphocytes/100 WBC Auto (Bld)on 06-12-2024 Lymphocytes/100 WBC (Bld)Lymphocytes/100 leukocytes in Blood by Automated count Low20.5-60.0[facility] CenterH Auto (RBC) [Entitic mass]on 91-62-4736YPD (RBC) [Entitic mass]MCH [Entitic mass] by Automated count26.7-34.0 [facility] HospitalMCHC Auto (RBC) [Mass/Vol]on 05-02-8844OHOO (RBC) [Mass/Vol]MCHC [Mass/volume] by Automated count29.9-35.2FOhioHealth Grady Memorial HospitalMCV Auto (RBC) [Entitic vol]on 91-47-3172DBR (RBC) [Entitic vol] MCV [Entitic volume] by Automated ajkjaMdpv05.0-99.0[facility] HospitalMonocytes Auto (Bld) [#/Vol]on 58-23-6972Spqblabif (Bld) [#/Vol]Automated blood monocyte count0.3-0.8[facility] HospitalMonocytes/100 WBC Auto (Bld)on 01-44-5614Mndnfnkjv/100 WBC (Bld)Automated monocyte %1.7-12.0 [facility] HospitalNeutrophils Auto (Bld) [#/Vol]on 06-12-2024 Neutrophils (Bld) [#/Vol]Neutrophils [#/volume] in Blood by Automated count 1.4-6.5FOhioHealth Grady Memorial HospitalNeutrophils/100 WBC Auto (Bld)on 34-21-2313Xcqhuoumnqs/100 WBC (Bld)Automated neutrophil %High43.0-75.0[facility] HospitalNo Panel Informationon 49-91-6689Gnmni Alcohol Level33 mg/dLOhio State East HospitalComment on above:NOTE: 80 mg/dl is the legal limit for a blood alcohol levelTroponin I High Reomjfmpyay48.7 pg/mL Critically high4.0-51.3FOhioHealth Grady Memorial HospitalComment on above:RESULTS CALLED TO PAULINA SYED NP at UT-OFF POINTS HAVE BEEN ESTABLISHED BASED ON THE FOURTHUNIVERSAL DEFINITION OF MYOCARDIAL INFARCTION. THE UPPERREFERENCE LIMIT (URL) OF TROPONIN, DEFINED THE 99THPERCENTILE OF cTnI DISTRIBUTION IN A REFERENCE POPULATION,HAS BEEN CONFIRMED THE DECISION THRESHOLD FOR MIDIAGNOSIS.99TH PERCENTILE = 51.4 PG/MLNOTE: HIGH-SENSITIVITY TROPONIN ASSAY IS NOT INTENDED TO BEUSED IN ISOLATION BUT SHOULD BE INTERPRETED IN CONJUNCTIONWITH OTHER DIAGNOSTIC AND CLINICAL INFORMATION.Eosinophils # (Auto) 0.0 10 3/uL0.0-0.7FOhioHealth Grady Memorial HospitalImmature Granulocyte # (Auto) 0.06 10 3/uLHigh0.00-0.03Ohio State East HospitalUrine BacteriaMODERATE #/HPFAbnormalNONE [facility] SystemUrine Microscopic Review YESOhio State East HospitalUrine Occult BloodTRACE-INEGATIVEOhio State East HospitalUrine Other CastsNONE SEEN #/LPFNONE [facility] SystemUrine Other CrystalsNone Seen #/HPFNone [facility] HospitalU[facility] RBC0-2 #/HPF0-2FOhioHealth Grady Memorial Hospital Urine Squamous Epithelial CellsFEW #/LPFAbnormalNONE/RAREOhio State East HospitalUrine WBC2-5 #/HPFAbnormalNONE [facility] SystemPlatelet mean volume Auto (Bld) [Entitic vol]on 28-54-1921Dxumrolp mean volume (Bld) [Entitic vol]Platelet mean volume [Entitic volume] in Blood by Automated countLow9.5-13.5FOhioHealth Grady Memorial HospitalPlatelets Auto (Bld) [#/Vol]on 79-68-3244Mnsvwcnbf (Bld) [#/Vol]Platelets [#/volume] in Blood by Automated aeqve164-057WrqsfytimOhio State East HospitalProthrombin time (PT)on 85-24-3067AF Coag (PPP) [Time]Prothrombin time (PT)High9.0-11.6FOhioHealth Grady Memorial HospitalRBC Auto (Bld) [#/Vol]on 03-26-4406GUU (Bld) [#/Vol] Erythrocytes [#/volume] in Blood by Automated countLow4.20-5.40UK Healthcareerum or plasma albumin/globulin mass ratioon 06-12-2024 Albumin/Globulin [Mass ratio]Serum or plasma albumin/globulin mass ratio UK Healthcareerum or plasma anion gap determinationon 89-19-2601Vuwpj gap [Moles/Vol]Serum or plasma anion gap determinationOhio State East HospitalUrine Cultureon 10-30-0127Egdezpub identified Cx Nom (U) No Growth 2 Days PERFORMED BY: [place] [address] PATHOLOGIST [employer] SALLY RENNER M.D.NormalThe Washington Regional Medical Center Physician GroupComment on above: Performed By: #### [facility] #### [place] [address] USAPathology study report documentOrdered By: Maury Schafer on 59-00-0523Kzqsqxzfs studyOhio State East Hospital Other lon 02-19-2024 Specimen: [id number] Received: 02/20/24 Status: MARCELO Sanchez Num: [id number] Spec Type: Surgical Subm Dr: Cody Neves MD Tissues: A BREAST CORE NO CALCS (LEFT BREAST) Procedures: HE/4, Gross/Micro L4 Age/ Patient Sex Location Account Attending Physician Orestes Alvares 59/F [place] [id number] Katie Velasquez APRN, SPEC NUM: [id number] RECD: 02/20/24 STATUS: MARCELO SANCHEZ NUM: [id number] LYNDSEY: 02/19/24-[address] [facility] [address]: Cody Neves MD ENTERED: 02/20/[address]: Ghassan,Chinmay Velasquez APRN, [facility] SPEC TYPE: Surgical DEPT: JUANIS PERES ENTERED BY: [id number] RECV BY: [id number] ORDERED: HE/4, Gross/Micro L4 ORDERED: HE/4, Gross/Micro [...] Time specimen placed in formalin: 1506 Specimen: [id number] Received: 02/20/24 Status: MARCELO Sanchez Num: [id number] Spec Type: Surgical Subm Dr: Cody Neves MD Tissues: A BREAST CORE NO CALCS (LEFT BREAST) Procedures: /Caroline, Gross/Micro L4 Patient: Orestes Alvares [id number] (Continued) Specimen: [id number] Received: 02/20/24 (Continued) Gross Description (Continued) Signed (signature on file) Maury Schafer MD 02/22/24 1036 Specimen: [id number] Received: 02/20/24 Status: MARCELO Sanchez Num: [id number] Spec Type: Surgical Subm Dr: Cody Neves MD Tissues: A BREAST CORE NO CALCS (LEFT BREAST) Procedures: /, Gross/Micro L4 Patient: Orestes Alvares [id number] (Continued) Specimen: [id number] Received: 02/20/24 (Continued) Gross Description (Continued) Cold ischemic time: 2 minutes Total fixation time: 26 hours and 30 minutes (2, lio, [id number] A) Batool Microscopic Description Microscopic examination is performed. CPT Codes 34871 Specimen: [id number] Received: 02/20/24 Status: MARCELO Sanchez Num: [id number] Spec Type: Surgical Subm Dr: Cody Neves MD Tissues: A BREAST CORE NO CALCS (LEFT BREAST) Procedures: , Gross/Micro L4 Patient: Orestes Alvares [id number] (Continued) Signed (signature on file) Maury Schafer MD 02/22/24 1036Normal [facility] Physician GroupActivated partial thromboplastin time (aPTT) in platelet poor plasma by coagulation aOrdered By: Caden Jarrell on 60-63-5355wQYX Coag (PPP) [Time]30.8 s25.1-36.5FOhioHealth Grady Memorial HospitalBasophils Auto (Bld) [#/Vol]Ordered By: Caden Jarrell on 27-90-5075Amlnybaty (Bld) [#/Vol]0.1 10*3/uL0.0-0.2FOhioHealth Grady Memorial HospitalBasophils/100 WBC Auto (Bld) Ordered By: Caden Jarrell on 09-57-9501Qemsxtqqn/100 WBC (Bld)0.9 %.[facility] HospitalCreatine kinase [Enzymatic activity/volume] in Serum or PlasmaOrdered By: Caden Jarrell on 42-86-8967RL [Catalytic activity/Vol]33 U/L 22-269[facility] HospitalCreatinine and Glomerular filtration rate.predicted panel (S/P/Bld)Ordered By: Caden Jarrell on 31-96-5102Edsxnmrnzw [Mass/Vol]1.34 mg/dL0.44-1.03[facility] HospitalEosinophils Auto (Bld) [#/Vol]Ordered By: Caden Jarrell on 19-98-2812Hnxmgpthojx (Bld) [#/Vol]0.0 10*3/uL0.0-0.45[facility] HospitalEosinophils/100 WBC Auto (Bld) Ordered By: Caden Jarrell on 87-33-4805Vzqkkgtkwtc/100 WBC (Bld)0.2 %.[facility] HospitalErythrocyte distribution width Auto (RBC) [Ratio]Ordered By: Caden Jarrell on 91-33-3500Flibejbnkhi distribution width (RBC) [Ratio]13.6 % 11.9-15.3FOhioHealth Grady Memorial HospitalEstimated glomerular filtration rate (GFR) non- AmericanOrdered By: Caden Jarrell on 20-87-1072VUC/1.73 sq M.predicted among non-blacks MDRD (S/P/Bld) [Vol rate/Area]40 mL/MinOhio State East HospitalHematocrit Auto (Bld) [Volume fraction]Ordered By: Caden Jarrell on 36-17-8666Afrdixxrhe (Bld) [Volume fraction]31.6 %34.0-46.4FOhioHealth Grady Memorial HospitalHemoglobin [Mass/volume] in BloodOrdered By: Caden Jarrell on 09-82-9618Fihfugmrbj (Bld) [Mass/Vol]11.0 g/dL11.8-15.4FOhioHealth Grady Memorial HospitalLaboratory - Chemistry and Chemistry - challengeOrdered By: Caden Jarrell on 72-50-8090Alnthbtsten peptide B (Bld) [Mass/Vol]1767.0 pg/mL5-100 [facility] HospitalLaboratory - CoagulationOrdered By: Caden Jarrell on 62-46-1524SO Coag (PPP) [Time]13.2 s9.0-12.9[facility] HospitalLeukocytes [#/volume] corrected for nucleated erythrocytes in Blood by Automated counOrdered By: Caden Jarrell on 14-20-1687JJH corrected for nucl RBC Auto (Bld) [#/Vol]7.8 10*3/uL3.8-11.6FOhioHealth Grady Memorial Hospital Lymphocytes Auto (Bld) [#/Vol]Ordered By: Caden Jarrell on 10-68-8077Pzjbmhwufua (Bld) [#/Vol]0.8 10*3/uL1.00-4.8[facility] HospitalLymphocytes/100 WBC Auto (Bld)Ordered By: Caden Jarrell on 23-86-5307Rnjjomkqxbg/100 WBC (Bld) 10.6 %.[facility] Auto (RBC) [Entitic mass]Ordered By: Caden Jarrell on 07-46-1587YTK (RBC) [Entitic mass]32.1 pg24.7-34.3FOhioHealth Grady Memorial HospitalMCHC Auto (RBC) [Mass/Vol]Ordered By: Caden Jarrell on 53-66-9407NTCG (RBC) [Mass/Vol]34.7 g/dL32.0-35.0[facility] HospitalMCV Auto (RBC) [Entitic vol]Ordered By: Caden Jarrell on 86-66-1512RNY (RBC) [Entitic vol]92.3 jG32-408NpiheejxxOhio State East HospitalMonocyte distribution width [Entitic volume] in Blood by AutomatedOrdered By: Caden Jarrell on 22-54-2132Wfrxaswj distribution width Auto (Bld) [Entitic vol]19.45 %0.00-20.00 [facility] HospitalMonocytes Auto (Bld) [#/Vol]Ordered By: Caden Jarrell on 94-07-4779Rkbcxnpin (Bld) [#/Vol]0.8 10*3/uL0.0-0.8[facility] HospitalMonocytes/100 WBC Auto (Bld)Ordered By: Caden Jarrell on 03-15-2022 Monocytes/100 WBC (Bld)10.2 %.[facility] HospitalNeutrophils Auto (Bld) [#/Vol]Ordered By: Caden Jarrell on 98-29-3556Duhjwbnyirl (Bld) [#/Vol]6.1 10*3/uL1.8-7.7FOhioHealth Grady Memorial HospitalNeutrophils/100 WBC Auto (Bld) Ordered By: Caden Jarrell on 11-70-9518Wtdyjqcvojv/100 WBC (Bld)78.1 %.[facility] HospitalNo Panel InformationOrdered By: Caden Jarrell on 03-15-2022 Estimated GFR ()49 mL/MinOhio State East Hospital Comment on above:GFR estimated reference range: According to KDOQI guidelines, <60 ml/min/1.73m2 is sufficient todiagnose a patient with chronic kidney disease.Pharmacy Creatinine Clearance (Chem43.20[facility] HospitalNucleated erythrocytes [Presence] in Blood by Automated countOrdered By: Caden Jarrell on 29-61-5997Yyvghrkpm RBC Auto Ql (Bld)0.1 /100{WBC}0-0.5FOhioHealth Grady Memorial HospitalPlatelet mean volume Auto (Bld) [Entitic vol]Ordered By: Caden Jarrell on 65-23-4903Vjadywzk mean volume (Bld) [Entitic vol]7.1 fL6.3-10.7 [facility] HospitalPlatelet poor plasma international normalized ratio (INR) by coagulation assay (relatOrdered By: Caden Jarrell on 60-24-0868OSJ Coag (PPP) [Relative time]1.2 {INR}[facility] HospitalComment on above:INR Therapeutic Range A) Pre- and Peroperative OAT started two weeks before surgery. NOT HIP SURGERY: 1.5 - 2.5 HIP SURGERY: 2 - 3B) Primary and secondary prevention of venous THROMBOSIS: 2 - 3C) Active venous thrombosis, pulmonary embolismand prevention of recurrent venous thrombosis: 2 - 3D) Preve ntion of arterial thromboembolismincluding patients with mechanical heart valves: 3 - 4.5Platelets Auto (Bld) [#/Vol]Ordered By: Caden Jarrell on 03-15-2022 Platelets (Bld) [#/Vol]277 10*3/sZ886-156OksqtfgesOhio State East HospitalRBC Auto (Bld) [#/Vol]Ordered By: Caden Jarrell on 76-99-0793NNT (Bld) [#/Vol]3.43 10*6/uL3.60-5.00UK Healthcareerum or plasma anion gap determinationOrdered By: Caden Jarrell on 25-76-0887Czdsw gap [Moles/Vol]14.5 mmol/L6.0-15.0UK Healthcareerum or plasma calcium measurement (mass/volume)Ordered By: Caden Jarrell on 63-71-9388Kgpsryh [Mass/Vol] 9.3 mg/dL8.2-10.2FSouthern [place] Medical Centererum or plasma chloride measurement (moles/volume)Ordered By: Caden Jarrell on 44-23-2909Hyleezqp [Moles/Vol]95 mmol/D14-810DmxhfgjdxUK Healthcareerum or plasma creatine kinase MB (CKMB)/total creatine kinase (CK) ratio by calculaOrdered By: Caden Jarrell on 05-38-8255SJ.MB Calc [Catalytic fraction]5.1 %0.00-2.50UK Healthcareerum or plasma creatine kinase MB measurement (mass/volume)Ordered By: Caden Jarrell on 91-66-2458QY.MB [Mass/Vol]1.7 ng/mL 0.6-6.3FSouthern [place] Medical Centererum or plasma glucose measurement (mass/volume)Ordered By: Caden Jarrell on 04-61-9131Kgpgjzz [Mass/Vol]129 mg/dL 70-100[facility] HospitalComment on above:ADA recommended reference rangeRandom Glucose Reference Range is dependent on time and content of last meal. Glucose of more than 200 mg/dL in a nonstressed, ambulatory subject supports the diagnosisof Diabetes Mellitus.Serum or plasma potassium measurement (moles/volume)Ordered By: Caden Jarrell on 22-41-0475Yawmlppkn [Moles/Vol]3.4 mmol/L3.5-5.1FSouthern [place] Medical Centererum or plasma sodium measurement (moles/volume)Ordered By: Caden Jarrell on 48-17-0651Tnayvq [Moles/Vol]129 mmol/I930-017OhxhbhesiUK Healthcareerum or plasma total carbon dioxide measurement (moles/volume)Ordered By: Caden Jarrell on 99-53-4572MH1 [Moles/Vol]22.9 mmol/L22.0-30.0[facility] Serum or plasma urea nitrogen measurement (mass/volume)Ordered By: Caden Jarrell on 44-90-7112Cnef nitrogen [Mass/Vol]14 mg/dL9-23[facility] HospitalTroponin I.cardiac [Mass/volume] in Serum or Plasma by High sensitivity methodOrdered By: Caden Jarrell on 60-05-4931Aqjqdubv I.cardiac High sensitivity method [Mass/Vol]24 pg/mL0-15[facility] HospitalWBC Auto (Bld) [#/Vol]Ordered By: Caden Jarrell on 20-33-3094WHC (Bld) [#/Vol]7.8 10*3/uL3.8-11.6 [facility] HospitalCBC AUTO DIFFon 59-54-2603KLNL #0.0 103/ul Normal0.0-0.1The [facility] Medical CenterComment on above:Performed By: #### HSTROPN #### [facility] [address] [address] [address] Debra Hutchinsphils/100 WBC (Bld)0.5 %Normal0.2-2.0The [facility] Comment on above:Performed By: #### HSTROPN #### [facility] [address] [place], [place] [address] Dr. Debra Villasenor #0.1 103/ulNormal0.0-0.7The [facility] Medical CenterComment on above: Performed By: #### HSTROPN #### [facility] [address] [place] [address] Dr. Debra Glalegoosinophils/100 WBC (Bld)1.4 %Normal0.9-7.0The [facility] Comment on above:Performed By: #### HSTROPN #### [facility] [address] [place] [address] Dr. Debra Gallegorythrocyte distribution width (RBC) [Ratio]14.1 %Rhxuqe30.0-15.0 The [facility] CenterComment on above:Performed By: #### HSTROPN #### [facility] [address] [place] [address] Dr. Debra BlakeHematocrit (Bld) [Volume fraction]26.2 %Critically low36.0-48.[address] [facility] Medical CenterComment on above:Performed By: #### HSTROPN #### [facility] [address] [place] [address] Dr. Debra BlakeHemoglobin (Bld) [Mass/Vol]9.1 g/dLCritically low12.0-16.0The [facility] CenterComment on above:Performed By: #### HSTROPN #### [facility] [address] [place] [address] Dr. Debra Bay #0.03 10e3/ulNormal0.00-0.03The [facility] Medical CenterComment on above:Performed By: #### HSTROPN #### [facility] [address] [place] [address] Dr. Debra Bay %0.4 %Normal0.0-0.5The [facility] Medical CenterComment on above: Performed By: #### HSTROPN #### [facility] [address] [place] [address] Dr. Debra Early #1.5 103/ulNormal1.2-3.8The [facility] Medical CenterComment on above:Performed By: #### HSTROPN #### [facility] [address] [place] [address] Dr. Debra Iglesiasmphocytes/100 WBC (Bld)19.0 %Critically low20.5-60.0The [facility] Medical CenterComment on above:Performed By: #### HSTROPN #### [facility] [address] [place] [address] Dr. Debra ObrienUAL DIFF REQNONormalThe [facility] Medical CenterComment on above: Performed By: #### HSTROPN #### [facility] [address] [place] [address] Dr. Debra Recio (RBC) [Entitic mass]34.3 pgCritically high26.7-34.0The [facility] CenterComment on above:Performed By: #### HSTROPN #### [facility] [address] [place] [address] Dr. Debra Recio (RBC) [Mass/Vol]34.7 g/bPBqzlgh84.9-35.2The [facility] CenterComment on above:Performed By: #### HSTROPN #### [facility] [address] [place] [address] Dr. Debra Recio (RBC) [Entitic vol]98.9 xTLrtutv28.0-99.0The [facility] CenterComment on above:Performed By: #### HSTROPN #### [facility] [address] [place] [address] Dr. Debra Hallman #0.8 103/ulNormal0.3-0.8The [facility] Medical CenterComment on above:Performed By: #### HSTROPN #### [facility] [address] [place] [address] Dr. Debra Spauldingocytes/100 WBC (Bld)10.0 %Normal1.7-12.0The [facility] Comment on above:Performed By: #### HSTROPN #### [facility] [address] [place] [address] Dr. Debra Valdovinos #5.5 103/ulNormal1.4-6.5The [facility] HospitalComment on above:Performed By: #### HSTROPN #### [facility] [address] [place] [address] Dr. Debra BlakeNeutrophils/100 WBC (Bld)68.7 %Tithsk39.0-75.0The [facility] CenterComment on above:Performed By: #### HSTROPN #### [facility] [address] [place] [address] Dr. Debra BlakePlatelet mean volume (Bld) [Entitic vol]9.5 fLNormal9.5-13.5The [facility] CenterComment on above:Performed By: #### HSTROPN #### [facility] [address] [place] [address] Dr. Debra BlakePLT300 103/hrPzievc742-780Qef [facility] CenterComment on above: Performed By: #### HSTROPN #### [facility] [address] [place] [address] Dr. Debra BlakeRBC2.65 106/ulCritically low4.20-5.40The [facility] CenterComment on above:Performed By: #### HSTROPN #### [facility] [address] [place] [address] Dr. Debra BlakeWBC8.1 103/ulNormal4.0-11.0The [facility] Medical CenterComment on above: Performed By: #### HSTROPN #### [facility] [address] [place] [address] Dr. Debra BlakeCovid-19 PCR ([facility])on 61-30-7592MZBU-CoV-2 (COVID-19) RNA YVONNE+probe Ql (Unsp spec)Not detectedNormalNOT DETECTEDThe [facility] Comment on above:Result Comment: When diagnostic testing is negative, the [...] for this test is supported by the [place] of Health and Human Service's declaration that circumstances exist to justify the emergency use of in vitro diagnostics for the detection and/or diagnosis of the virus that causes COVID-19. This EUA will remain in effect for the duration of the COVID-19 declaration justifying emergency of IVDs, unless it is terminated or revoked by the FDA (after which the test may no longer be used).Performed By: #### CVDTBH #### [facility] [address] [place] [address] Dr. Debra Johnson URINE PROFILEon 90-26-4147Hzvfuwjyp Ql (U)NegativeNormal NEGATIVEMercy Health St. Vincent Medical CenterComment on above:Performed By: #### HSTROPN #### [facility] [address] [place] [address] Dr. Debra BlakeClarity (U)CLEARNormalCLEARMercy Health St. Vincent Medical CenterComment on above: Performed By: #### HSTROPN #### [facility] [address] [place] [address] Dr. Debra Pedroza (U)LT. YELLOWNormalYELLOWMercy Health St. Vincent Medical CenterComment on above:Performed By: #### HSTROPN #### [facility] [address] [place] [address] Dr. Debra Francisco micrscopic examination will be performed if indicated. NormalMercy Health St. Vincent Medical CenterComment on above:Performed By: #### HSTROPN #### [facility] [address] [place] [address] Dr. Debra BlakeGlucose Ql (U)NegativeNormalNEGATIVEMercy Health St. Vincent Medical CenterComment on above:Performed By: #### HSTROPN #### [facility] [address] [place] [address] Dr. Debra BlakeHemoglobin Ql (U)NegativeNormalNEGATIVEMercy Health St. [facility] Comment on above:Performed By: #### HSTROPN #### [facility] [address] [place] [address] Dr. Debra Ni Ql (U)NegativeNormalNEGATIVEThe [facility] Medical CenterComment on above:Performed By: #### HSTROPN #### [facility] [address] [place] [address] Dr. Debra BlakeLEUKOCYTESNegativeNormalNEGATIVEThe [facility] Medical CenterComment on above:Performed By: #### HSTROPN #### [facility] [address] [place] [address] Dr. Debra Dwyertrite Ql (U)NegativeNormalNEGATIVEThe [facility] HospitalComment on above:Performed By: #### HSTROPN #### [facility] [address] [place] [address] Dr. Debra BlakepH (U)7.0 [pH]Normal5-9The [facility] CenterComment on above: Performed By: #### HSTROPN #### [facility] [address] [place] [address] Dr. Debra BlakeSPEC GRAVITY1.670Ofvafg3.005-<=1.025The [facility] Medical CenterComment on above:Performed By: #### HSTROPN #### [facility] [address] [place] [address] Dr. Debra Diamond PROTEINTRACENormalNEGATIVE/ TRACEThe [facility] Medical CenterComment on above:Performed By: #### HSTROPN #### [facility] [address] [place] [address] Dr. Debra BlakeUR MICRO INDNOT INDICATEDNormalThe [facility] Medical CenterComment on above:Performed By: #### HSTROPN #### [facility] [address] [place] [address] Dr. Debra BlakeUrobilinogen Qn (U)0.2 {Pascale'U}/dLNormal0.2 - 1.0The [facility] CenterComment on above:Performed By: #### HSTROPN #### [facility] [address] [place] [address] Dr. Debra GallegoTHANOL (BLD ALC)on 04-18-5864UHM NOTENOTE: 80 mg/dl is the legal limit for a blood alcohol levelNoSouthview Medical CenterComment on above: Performed By: #### ETH #### [facility] [address] [place] [address] Dr. Debra Gallegothanol [Mass/Vol]mg/dLNoSouthview Medical CenterComment on above:Performed By: #### ETH #### [facility] [address] [place] [address] Dr. Debra BlakePROF CHEM 8 (BAS METB)on 00-99-7387Uzxru gap [Moles/Vol]14.8 mmol/LNormalThe [facility] CenterComment on above:Performed By: #### HSTROPN, CMP #### [facility] [address] [place] [address] Dr. Debra BlakeCalcium [Mass/Vol]7.6 mg/dLCritically low8.5-10.1The [facility] CenterComment on above:Performed By: #### HSTROPN, CMP #### [facility] [address] [place] [address] Dr. Debra BlakeChloride [Moles/Vol]93 mmol/LCritically qkz37-608Rhf [facility] CenterComment on above:Performed By: #### HSTROPN, CMP #### [facility] [address] [place] [address] Dr. Debra BlakeCO2 [Moles/Vol]30.6 mmol/YZowjcy38.0-32.0The [facility] Comment on above:Performed By: #### HSTROPN, CMP #### [facility] [address] [place] [address] Dr. Debra BlakeCreatinine [Mass/Vol]2.27 mg/dLCritically high0.55-1.02The [facility] CenterComment on above:Performed By: #### HSTROPN, CMP #### [facility] [address] [place] [address] Dr. Richardson ChangEGFR-AF IBITYUKF98 mL/min/1.69a9Aptbisebbg low>=60The [facility]assan HospitalComment on above:Performed By: #### HSTROPN, CMP #### [facility] [address] [address] [address] Debra GallegoGFR-NON AF MGLZVSIK38 mL/min/1.60n5Epfrqitwpw low>=60The [facility] on above:Performed By: #### HSTROPN, CMP #### [facility] [address] [address] [address] Debra BlakeGlucose [Mass/Vol]114 mg/dLCritically zdjy64-216Kxu [facility] on above:Performed By: #### HSTROPZelalem, CMP #### [facility] [address] [address] [address] Debra BlakePotassium [Moles/Vol]3.4 mmol/LCritically low3.5-5.1The [facility] on above:Performed By: #### HSJORGE, CMP #### [facility] [address] [address] [address] Debra BlakeSodium [Moles/Vol]135 mmol/LCritically ypu721-249Qck [facility] on above:Performed By: #### HSTRKATHY, CMP #### [facility] [address] [address] [address] Debra BlakeUrea nitrogen [Mass/Vol]20.0 mg/dLCritically high7.0-18.0The [facility] on above:Performed By: #### HSTROPZelalem, CMP #### [facility] [address] [place] [address] Dr. Dbera BlakeUrea nitrogen/Creatinine [Mass ratio]8.8 mg/mgNormalThe [facility] on above:Performed By: #### HSTROPZelalem, CMP #### [facility] [address] [place] [address] Dr. Debra Metz, HIGH SENSITIVITYon 99-81-2073KBBQEH37.7 pg/mLNormal 4.0-51.3The [facility] on above:Result Comment: CUT-OFF POINTS HAVE BEEN ESTABLISHED BASED ON THE FOURTH UNIVERSAL DEFINITIONS OF MYOCARDIAL INFARCTION. THE UPPER REFERENCE LIMIT (URL) OF TROPONIN, DEFINED THE 99TH PERCENTILE OF cTnI DISTRIBUTION IN A REFERENCE POPULATION, HAS BEEN CONFIRMED THE DECISION THRESHOLD FOR [place] DIAGNOSIS.Performed By: #### HSTROPN #### [facility] [address] [address] [address] Debra BlakeXR CHEST 1 Von 36-60-1315CX CHEST 1 VEXAMINATION: XR CHEST 1 V HISTORY: Asthenia COMPARISON: XR chest [...] Electronically authenticated by: DENISE MESSER Date: 2021-12-19 15:[address] [place], [place] [address]Basophils Auto (Bld) [#/Vol]Ordered By: Hong Jewell on 58-02-8419Qtjiywwlr (Bld) [#/Vol]0.1 10*3/uL0.0-0.2FOhioHealth Grady Memorial HospitalBasophils/100 WBC Auto (Bld)Ordered By: Hong Jewell on 12-10-2021 Basophils/100 WBC (Bld)0.9 %.[facility] HospitalBlood hemoglobin measurement (mass/volume)Ordered By: Hong Jewell on 12-10-2021 Hemoglobin (Bld) [Mass/Vol]7.5 g/dL11.8-15.4FOhioHealth Grady Memorial Hospital Blood leukocytes automated count (number/volume)Ordered By: Hong Jewell on 70-62-9622PMX (Bld) [#/Vol]6.3 10*3/uL4.5-11.0[facility] HospitalCreatinine and Glomerular filtration rate.predicted panel (S/P/Bld)Ordered By: Hong Jewell on 28-23-2280Scthgfuvco [Mass/Vol]1.84 mg/dL0.44-1.03 [place] [facility] HospitalEosinophils Auto (Bld) [#/Vol]Ordered By: Hong Jewell on 68-40-7614Kdwtiffinub (Bld) [#/Vol]0.2 10*3/uL0.0-0.45 [place] [facility] HospitalEosinophils/100 WBC Auto (Bld)Ordered By: Hong Jewell on 28-98-6754Nnfhtopxoth/100 WBC (Bld)3.5 %.[facility] HospitalErythrocyte distribution width Auto (RBC) [Ratio]Ordered By: Hong Jewell on 51-22-7036Rvdewesgwpf distribution width (RBC) [Ratio]16.3 %11.9-15.3FOhioHealth Grady Memorial HospitalEstimated glomerular filtration rate (GFR) non- AmericanOrdered By: Hong Jewell on 99-66-9029VCV/1.73 sq M.predicted among non-blacks MDRD (S/P/Bld) [Vol rate/Area]28 mL/MinOhio State East HospitalHematocrit Auto (Bld) [Volume fraction]Ordered By: Hong Jewell on 23-85-1248Ywvmndaerr (Bld) [Volume fraction]22.8 %34.0-46.4FOhioHealth Grady Memorial HospitalLaboratory - Chemistry and Chemistry - challengeOrdered By: Hong Jewell on 71-30-6853Garhexdxo [Mass/Vol]0.7 mg/dL1.6-2.6FOhioHealth Grady Memorial Hospital Comment on above:Results called at 0825 on 12/10/21Laboratory - Hematology and Cell countsOrdered By: Hong Jewell on 79-17-0908Ldfytydox RBC/100 WBC (Bld) [Ratio]0.0 %0-0.5FOhioHealth Grady Memorial HospitalLymphocytes Auto (Bld) [#/Vol]Ordered By: Hong Jewell on 33-51-1478Gqywwhwwbzy (Bld) [#/Vol]1.4 10*3/uL1.00-4.8[facility] HospitalLymphocytes/100 WBC Auto (Bld)Ordered By: Hong Jewell on 77-81-0564Zovbkajwddf/100 WBC (Bld)21.7 %.[facility] HospitalMC Auto (RBC) [Entitic mass]Ordered By: Hong Jewell on 88-83-1594XWY (RBC) [Entitic mass]34.3 pg24.7-34.3FOhioHealth Grady Memorial HospitalMCHC Auto (RBC) [Mass/Vol]Ordered By: Hong Jewell on 12-10-2021 MCHC (RBC) [Mass/Vol]33.0 g/dL32.0-35.0[facility] HospitalMCV Auto (RBC) [Entitic vol]Ordered By: Hong Jewell on 52-23-8696TYX (RBC) [Entitic vol]103.8 pM25-363BgntwaiwdOhio State East HospitalMonocytes Auto (Bld) [#/Vol]Ordered By: Hong Jewell on 36-98-5852Sfqbklylh (Bld) [#/Vol]0.7 10*3/uL0.0-0.8[facility] HospitalMonocytes/100 WBC Auto (Bld) Ordered By: Hong Jewell on 88-22-6016Khonbadmm/100 WBC (Bld)11.2 %. [place] [facility] HospitalNeutrophils Auto (Bld) [#/Vol]Ordered By: Hong Jewell on 58-02-5530Dvwbnertigp (Bld) [#/Vol]3.9 10*3/uL1.8-7.7 [facility] HospitalNeutrophils/100 WBC Auto (Bld)Ordered By: Hong Jewell on 47-38-2695Odpbjmyjkrq/100 WBC (Bld)62.7 %.[facility] HospitalNo Panel InformationOrdered By: Hong Jewell on 22-74-3313Peextvdhd GFR ()34 mL/MinOhio State East HospitalComment on above:GFR estimated reference range: According to KDOQI guidelines, <60 ml/min/1.73m2 is sufficient todiagnose a patient with chronic kidney disease.Pharmacy Creatinine Clearance (Chem36.70[facility] HospitalPlatelet mean volume Auto (Bld) [Entitic vol]Ordered By: Hong Jewell on 70-23-6361Eepzrkxl mean volume (Bld) [Entitic vol]6.7 fL 6.3-10.7FOhioHealth Grady Memorial HospitalPlatelets Auto (Bld) [#/Vol]Ordered By: Hong Jewell on 82-56-4164Ttecajvjr (Bld) [#/Vol]356 10*3/iX536-645 [facility] HospitalRBC Auto (Bld) [#/Vol]Ordered By: Hong Jewell on 26-15-0190BYJ (Bld) [#/Vol]2.20 10*6/uL3.60-5.00UK Healthcareerum or plasma anion gap determinationOrdered By: Hong Jewell on 64-33-2013Lkmkk gap [Moles/Vol]TNPOhio State East Hospital Comment on above:Test not performedSerum or plasma calcium measurement (mass/volume)Ordered By: Hong Jewell on 17-11-5881Aenyotb [Mass/Vol]9.0 mg/dL8.2-10.2FSouthern Ohio Medical Centererum or plasma chloride measurement (moles/volume)Ordered By: Hong Jewell on 85-71-8507Ysrqrnku [Moles/Vol]104 mmol/E90-454IeiumiqskUK Healthcareerum or plasma glucose measurement (mass/volume)Ordered By: Hong Jewell on 12-10-2021 Glucose [Mass/Vol]137 mg/iV89-343KirnxahjuOhio State East HospitalComment on above:ADA recommended reference range Random Glucose Reference Range is dependent on time and content of last meal. Glucose of more than 200 mg/dL in a nonstressed, ambulatory subject supports the diagnosis of Diabetes Mellitus.Serum or plasma potassium measurement (moles/volume)Ordered By: Hong Jewell on 45-60-2465Metvhypse [Moles/Vol]4.7 mmol/L3.5-5.1FSouthern [place] Medical Centererum or plasma sodium measurement (moles/volume)Ordered By: Hong Jewell on 12-10-2021 Sodium [Moles/Vol]131 mmol/D050-668PpavrvplmUK Healthcareerum or plasma total carbon dioxide measurement (moles/volume)Ordered By: Hong Jewell on 20-07-8773LR1 [Moles/Vol]21.1 mmol/L22.0-30.0UK Healthcareerum or plasma urea nitrogen measurement (mass/volume)Ordered By: Hong Jewell on 51-33-7195Xejp nitrogen [Mass/Vol]21 mg/dL9-23UK Healthcareerum DNA double strand antibody assay (units/volume) Ordered By: William Esposito on 71-50-9442HHP double strand Ab Qn (S)[IU]/mL0-9 [facility] HospitalComment on above:Negative <5 Equivocal 5 - 9 Positive >9 Performed at: [facility] [id number] Mathematics Professor: Sanford Mehta PhD, Phone: [phone] [Mass/volume] in Serum or PlasmaOrdered By: William Esposito on 17-68-6462Viajddu [Mass/Vol]2.6 g/dL 2.9-4.4FOhioHealth Grady Memorial HospitalAlbumin/Protein.total in 24 hour Urine by ElectrophoresisOrdered By: William Esposito on 91-74-7516Lliyzlj Elph (24H U) [Mass fraction]69.2 %.[facility] HospitalCreatinine [Mass/volume] in UrineOrdered By: William Esposito on 73-33-2006Ycozvoelpt (U) [Mass/Vol]153.0 mg/dLOhio State East HospitalComment on above:No reference range establishedGamma globulin/Protein.total in 24 hour Urine by Electrophoresis Ordered By: William Esposito on 37-73-9881Vxiov globulin Elph (24H U) [Mass fraction] 8.2 %.[facility] HospitalIgA [Mass/volume] in Serum or Plasma Ordered By: William Esposito on 17-69-8535SxB [Mass/Vol]357 mg/kG23-444DqdrwcbgeOhio State East HospitalIgG [Mass/volume] in Serum or PlasmaOrdered By: William Esposito on 72-64-3743GoO [Mass/Vol]794 mg/uD095-6559SbhtbubvzOhio State East HospitalIgM [Mass/volume] in Serum or PlasmaOrdered By: William Esposito on 12-07-2021 IgM [Mass/Vol]109 mg/dC91-819NdudebtokOhio State East HospitalComment on above: Performed at: [facility] [id number] Mathematics Professor: Sanford Mehta PhD, Phone: [phone] for Urine Ordered By: William Esposito on 44-21-7132Mlyuvywbqyxiby Immunofixation (U) [Interp] Comment:.[facility] HospitalComment on above:Presence of monoclonal protein is unclear at this time. Suggest repeat in 3 to 6 months if clinically indicated. Performed at: [facility] [id number] Mathematics Professor: Sanford Mehta PhD, Phone: [phone] light chains.kappa.free [Mass/volume] in SerumOrdered By: William Esposito on 12-07-2021 Immunoglobulin light chains.kappa.free (S) [Mass/Vol]81.9 mg/L3.3-19.4FOhioHealth Grady Memorial HospitalImmunoglobulin light chains.kappa.free/Immunoglobulin light chains.lambda.free [MassOrdered By: William Esposito on 12-07-2021 Immunoglobulin light chains.kappa.free/Immunoglobulin light chains.lambda.free (S) [Mass ratio]1.310.26-1.65[facility] HospitalComment on above: Performed at: [facility] [id number] Mathematics Professor: Sanford Mehta PhD, Phone: [phone] light chains.lambda.free [Mass/volume] in Serum or PlasmaOrdered By: William Vaibhav on 54-44-1365Jsbmzbvksjczyk light chains.lambda.free [Mass/Vol]62.3 mg/L5.7-26.3 [facility] HospitalNo Panel InformationOrdered By: William Esposito on 62-80-7994Fydev Random Prot Electrophor NoteSee comment.[facility] HospitalComment on above:Protein electrophoresis scan will follow via computer, mail, or education professor delivery. Performed at: [address] [id number] Mathematics Professor: Sanford Mehta PhD, Phone: [phone] Electrophoresis M-SpikeNot observed g/dLNot ObservedOhio State East HospitalProtein Electrophoresis NoteSee comment.[facility] HospitalComment on above:Protein electrophoresis scan will follow via computer, mail, or education professor delivery. Performed at: [address] [id number] Mathematics Professor: Sanford Mehta PhD, Phone: [phone] ImmunofixationSee comment.[facility] HospitalComment on above:No monoclonality detected.Protein [Mass/volume] in Serum or PlasmaOrdered By: William Esposito on 21-78-8757Oqkgnpz [Mass/Vol]5.2 g/dL6.0-8.5FOhioHealth Grady Memorial Hospital Protein [Mass/volume] in UrineOrdered By: William Vaibhav on 27-80-8412Kqbanlj (U) [Mass/Vol]51.3 mg/dLNot Estab.[facility] Protein.monoclonal/Protein.total in 24 hour Urine by ElectrophoresisOrdered By: William Esposito on 88-96-5618Jxbgbna.monoclonal Elph (24H U) [Mass fraction]Not observed %Not ObservedUK Healthcareerum globulin measurement (mass/volume)Ordered By: William Vaibhav on 24-38-2470Dufcmhpp (S) [Mass/Vol]2.6 g/dL2.2-3.9UK Healthcareerum or plasma albumin/globulin mass ratioOrdered By: William Vaibhav on 21-89-2352Qnfzopy/Globulin [Mass ratio]1.0 {ratio}0.7-1.7FSouthern Ohio Medical Centererum or plasma alpha 1 globulin measurement by electrophoresis (mass/volume)Ordered By: William Vaibhav on 08-34-6079Porbc 1 globulin Elph [Mass/Vol]0.3 g/dL0.0-0.4FSouthern [place] Medical Centererum or plasma alpha 2 globulin measurement by electrophoresis (mass/volume)Ordered By: William Vaibhav on 13-60-7459Dekif 2 globulin Elph [Mass/Vol]0.7 g/dL0.4-1.0UK Healthcareerum or plasma beta globulin measurement by electrophoresis (mass/volume)Ordered By: William Vaibhav on 52-34-9215Bnrw globulin Elph [Mass/Vol]0.7 g/dL0.7-1.3FSouthern [place] Medical Centererum or plasma gamma globulin measurement by electrophoresis (mass/volume)Ordered By: William Vaibhav on 75-52-2267Oxepn globulin Elph [Mass/Vol]0.9 g/dL0.4-1.8[facility] HospitalTroponin I.cardiac [Mass/volume] in Serum or Plasma by High sensitivity methodOrdered By: Hong Jewell on 68-06-2066Fjvywyek I.cardiac High sensitivity method [Mass/Vol]7 pg/mL0-15[facility] HospitalUrine alpha 1 globulin/total protein by electrophoresisOrdered By: William Vaibhav on 12-07-2021 Alpha 1 globulin Elph (U) [Mass fraction]3.1 %.[facility] Urine alpha 2 globulin/total protein ratio by electrophoresisOrdered By: William Vaibhav on 42-01-2185Vvrdh 2 globulin Elph (U) [Mass fraction]6.0 %.[facility] HospitalUrine beta globulin measurement by electrophoresis (mass/volume)Ordered By: William Vaibhav on 79-53-2409Xlrp globulin Elph (U) [Mass/Vol]13.5 %.[facility] HospitalUrine culture routineOrdered By: Hong Jewell on 45-32-6225Zpdaawlb identified Cx Nom (U)Klebsiella oxytocaOhio State East HospitalUrine protein/creatinine ratioOrdered By: William Esposito on 22-00-8946Yrqmwww/Creatinine (U) [Ratio]359 mg/g{Cre}0-200 [facility] HospitalAlbumin [Mass/volume] in Serum or PlasmaOrdered By: William Esposito on 81-91-5139Mgpnkqr [Mass/Vol]3.0 g/dL3.2-5.5FOhioHealth Grady Memorial HospitalCULTURE URINEon 69-83-2576LWFFSDY URINEIsolate 1 Raoultella ornithinolytica >100,000 cfu/mL of ORGANISM [...] <=0.12 S F Nitrofurantoin <=16 S F Trimethoprim/Sulfamethoxazole <=20 S FNormalThe [facility]itus Medical CenterComment on above:Performed By: #### HSTROPN #### [facility] [address] [place] [address] Dr. Debra BlakeGlucose Glucometer (BldC) [Mass/Vol]Ordered By: Hong Jewell on 43-16-8343Nmhwtfd [Mass/Vol]145 mg/dLOhio State East HospitalComment on above:Random Glucose Reference Range is dependent on time and content of last meal. Glucose of more than 200 mg/dL in a nonstressed, ambulatory subject supports the diagnosis of Diabetes Mellitus.No Panel InformationOrdered By: Hong Jewell on 89-22-3780Jxza-Nuclear Antibody Comment 2See comment.[facility] HospitalComment on above:For more information about Hep-2 cell patterns use [...] titers Nucleosomes, Histones Drug-induced SLE Speckled Sm, SHOP TECH, SCL-70, SLE,MCTD,PSS (diffuse form), SS-A/SS-B Sjogrens Nucleolar SCL-70, PM-1/SCL High titers Scleroderma, PM/DM Centromere Centromere PSS (limited form) w/Crest syndrome variable Nuclear Dot Sp100,c37-oqxwdy Primary Biliary Cirrhosis Nuclear GP210, Primary Biliary Cirrhosis Membrane chun A,B,C Performed at: [facility] [id number] Mathematics Professor: Sanford Mehta PhD, Phone: [phone] URINEon 24-89-8373Iubpwlkwwf, Nuvej194 mOsmol/kgNoSouthview Medical CenterComment on above:Result Comment: 24 hr : 300 - 900 Random: 50 - 1400 After 12hr fluid restriction: >850Performed By: #### HSTROPN #### [facility] [address] [address] [address] Debra Castellanos nuclear antibody titerOrdered By: Hong Jewell on 02-74-4467Yumpahl Ab (S) [Titer]Positive.[facility] Comment on above:Negative <1:80 Borderline 1:80 Positive >1:80Serum or plasma cyclic adenosine monophosphate measurement (moles/volume)Ordered By: Hong Jewell on 53-31-0504Barjgavth monophosphate.cyclic [Moles/Vol]10 units0-19[facility] Comment on above:Negative <20 Weak positive 20 - 39 Moderate positive 40 - 59 Strong positive >59 Performed at: [facility] [id number] Mathematics Professor: Meli Bishop MD, Phone: [phone] or plasma ethanol measurement (mass/volume)Ordered By: Rehan Russ on 91-20-7050Cyzytdk [Mass/Vol]mg/dLOhio State East HospitalEthanol [Mass/Vol]TNPOhio State East HospitalComment on above:Test not performedSerum speckled pattern antinuclear antibody (MATY) titerOrdered By: Hong Jewell on 12-06-2021 Speckled nuclear Ab pattern (S) [Titer]1:80.[facility] Comment on above:ICAP nomenclature: AC-2,4,5,29Amphetamine Screen Ql (U)Ordered By: Hong Jewell on 97-88-7388Mrmzppauufzv Ql (U)NegativeNegative [facility] HospitalAutomated erythrocytes count in urine sediment (number/area)Ordered By: Hong Jewell on 74-91-4654IRT Auto (Urine sed) [#/Area]1-2 [HPF]0-4FOhioHealth Grady Memorial HospitalAutomated leukocytes count in urine sediment (number/area)Ordered By: Hong Jewell on 87-96-8649EXX Auto (Urine sed) [#/Area]Innumerable [HPF]0-4FOhioHealth Grady Memorial Hospital Barbiturates [Presence] in UrineOrdered By: Hong Jewell on 12-05-2021 Barbiturates Ql (U)NegativeNegWayne Hospital Benzodiazepines [Presence] in UrineOrdered By: Hong Jewell on 96-08-6972Jfagjjjiqtxkxao Ql (U)PositiveNegWayne HospitalBilirubin Test strip Ql (U)Ordered By: Hong Jewell on 12-05-2021 Bilirubin Ql (U)NegativeNegWayne HospitalCT biopsy Ordered By: Hong Jewell on 54-22-9224Nplfzfuisqs [Mass/Vol]175 mg/dL 180-380[facility] HospitalCannabinoids [Presence] in Urine by Screen methodOrdered By: Hong Jewell on 29-35-1752Xqmpabijmelv Screen Ql (U)NegativeNegWayne HospitalComment on above:These are unconfirmed results and should not be used for legal purposes. Drug Cut-Off Concentration: AMPH 1000 ng/mL GAYLE 200 ng/mL ISAEL 200 ng/mL COCM 300 ng/mL OP 300 ng/mL PCP 25 ng/mL THC 20 ng/mLColor Auto (U)Ordered By: Hong Jewell on 81-63-3573Gtglc (U)YellowYellowOhio State East HospitalFerritin [Mass/volume] in Serum or PlasmaOrdered By: Hong Jewell on 91-72-1357Zcsasdvl [Mass/Vol]80.8 ng/yR70-346.8[facility] HospitalIron [Mass/volume] in Serum or PlasmaOrdered By: Hong Jewell on 47-62-1569Fzqw [Mass/Vol]22 ug/dL 40-150Ohio [facility] HospitalIron binding capacity [Mass/volume] in Serum or PlasmaOrdered By: Hong Jewell on 61-52-0160Rarh binding capacity [Mass/Vol]245 ug/xI726-121BgpgrwojjOhio State East HospitalKetones Auto test strip (U) [Mass/Vol]Ordered By: Hong Jewell on 10-06-6755Plbwsai (U) [Mass/Vol]NegativeNegWayne HospitalLaboratory - Drug toxicologyOrdered By: Hong Jewell on 35-48-2159Yanjaak Ql (U)Negative NegativeOhio State East HospitalLaboratory - UrinalysisOrdered By: Hong Jewell on 08-39-8710Oveqwux casts LM Ql (Urine sed)0-8 [LPF]0-8 [facility] HospitalLactate dehydrogenase measurement (enzymatic activity/volume)Ordered By: Hong Jewell on 44-91-9346TVZ (Unsp spec) [Catalytic activity/Vol]135 U/S88-747LrtxdmljrOhio State East HospitalNitrite Test strip Ql (U)Ordered By: Hong Jewell on 12-52-8180Syrqxbw Ql (U) NegativeNegativeOhio State East HospitalNo Panel InformationOrdered By: Hong Jewell on 12-92-855669828804-Gbrahwc Vitamin D Total21.8 ng/xC99-400 [facility] HospitalComment on above:VITAMIN D STATUS 25(OH)VITAMIN D RANGE (ng/mL) Deficient <20 Insufficient 20 to <30 Sufficient 30 to 100 Reference: Maggie MF,Jose NC, Gilberto VARGAS, et al. Evaluation,treatment, and prevention of vitamin D deficiency; an Endocrine Society clinical practice guideline. JCEM. 2010; 96(7):1911-30.Vitamin C level<0.1 mg/dL0.4-2.0[facility] HospitalComment on above:This test was developed and its performance characteristics determined by [facility]. It has not been cleared or approved by the Food and Drug Administration. Vitamin C deficiency is generally defined as plasma or serum concentrations less than 0.2 mg/dL and levels between 0.2 and 0.4 mg/dL are considered low. Performed at: [address] [id number] Mathematics Professor: Meli Bishop MD, Phone: [phone] Screen Ql (U) Ordered By: Hong Jewell on 80-98-8107Oepmfivjytmkv Ql (U)Negative NegativeOhio State East HospitalProtein Auto test strip (U) [Mass/Vol] Ordered By: Hong Jewell on 36-48-7910Baitpoh (U) [Mass/Vol]30 mg/dL NegativeUK Healthcareerum or plasma thyroxine (T4) measurement (mass/volume)Ordered By: Hong Jewell on 43-10-5683E2 [Mass/Vol]7.19 ug/dL5.39-11.82UK Healthcarepecific gravity Auto test strip (U) [Rel density]Ordered By: Hong Jewell on 12-05-2021 Specific gravity (U) [Rel density]1.0131.001-1.030UK Healthcarequamous epithelial cells detection in urine sediment by light microscopy Ordered By: Hong Jewell on 54-98-3705Astfctxyej cells.squamous LM Ql (Urine sed)5-9 [HPF]0-2FOhioHealth Grady Memorial HospitalThyroxine (T4) free [Mass/volume] in Serum or PlasmaOrdered By: Hong Jewell on 12-05-2021 Free T4 [Mass/Vol]1.00 ng/dL0.61-1.12[facility] HospitalUrine bacteria detection by automated methodOrdered By: Hong Jewell on 99-01-7171Nbujuojg Auto Ql (U)4+None SeenOhio State East HospitalUrine clarity by refractometry automatedOrdered By: Hong Jewell on 12-05-2021 Clarity Refractometry automated (U)CloudyClearFOhioHealth Grady Memorial Hospital Urine cocaine detectionOrdered By: Hong Jewell on 30-67-9046Fkkorzs Ql (U)NegativeNegativeOhio State East HospitalUrine glucose measurement by automated test strip (mass/volume)Ordered By: Hong Jewell on 31-96-9878Oohckus Auto test strip (U) [Mass/Vol]Normal mg/dLNoUniversity Hospitals Lake West Medical CenterUrine hemoglobin detection by automated test stripOrdered By: Hong Jewell on 52-82-2975Sfcbnamzrx Auto test strip Ql (U)Negative [facility] HospitalUrine leukocyte esterase detection by automated test stripOrdered By: Hong Jewell on 34-42-9315Cwmjshvbc esterase Auto test strip Ql (U)4+NegativeOhio State East Hospital Urobilinogen Auto test strip (U) [Mass/Vol]Ordered By: Hong Jewell on 68-80-8304Bikiiuzatyke (U) [Mass/Vol]Normal mg/dLNoUniversity Hospitals Lake West Medical CenterpH Auto test strip (U)Ordered By: Hong Jewell on 20-64-9054tS (U)5.5 [pH]5.0-9.0[facility] HospitalActivated partial thromboplastin time (aPTT) in platelet poor plasma by coagulation a Ordered By: Hong Jewell on 56-01-0024lISU Coag (PPP) [Time]29.9 s 25.1-36.5FOhioHealth Grady Memorial HospitalCBC AUTO DIFFon 87-65-1323DOFU #0.0 103/ulNormal0.0-0.1The Ghassan HospitalComment on above:Performed By: #### HSTROPN, CMP #### [facility] [address] [place] [address] Dr. Debra BlakeBasophils/100 WBC (Bld)0.4 %Normal0.2-2.0[facility] Comment on above:Performed By: #### HSTROPN, CMP #### [facility] [address] [place] [address] Dr. Debra Villasenor #0.1 103/ulNormal0.0-0.7The [facility] Medical CenterComment on above: Performed By: #### HSTROPN, CMP #### [facility] [address] [place] [address] Dr. Debra Gallegoosinophils/100 WBC (Bld)1.3 %Normal0.9-7.0The [facility] Comment on above:Performed By: #### HSTROPN, CMP #### [facility] [address] [place] [address] Dr. Debra Gallegorythrocyte distribution width (RBC) [Ratio]14.6 %Nclelc14.0-15.0 The [facility] Medical CenterComment on above:Performed By: #### HSTROPN, CMP #### [facility] [address] [place] [address] Dr. Debra BlakeHematocrit (Bld) [Volume fraction]24.6 %Critically low36.0-48.0 The [facility] Medical CenterComment on above:Performed By: #### HSTROPN, CMP #### [facility] [address] [place] [address] Dr. Debra BlakeHemoglobin (Bld) [Mass/Vol]8.6 g/dLCritically low12.0-16.0The [facility] Medical CenterComment on above:Performed By: #### HSTROPN, CMP #### [facility] [address] [place] [address] Dr. Debra Bay #0.04 10e3/ulCritically high0.00-0.03The [facility] Comment on above:Performed By: #### HSTROPN, CMP #### [facility] [address] [place] [address] Dr. Debra BlakeIG %0.6 %Critically high0.0-0.5The [facility] Medical CenterComment on above:Performed By: #### HSTROPN, CMP #### [facility] [address] [place] [address] Dr. Debra Early #1.3 103/ulNormal1.2-3.8The [facility] Medical CenterComment on above:Performed By: #### HSTROPN, CMP #### [facility] [address] [place] [address] Dr. Debra Childshocytes/100 WBC (Bld)19.7 %Critically low20.5-60.0The [facility] Medical CenterComment on above:Performed By: #### HSTROPN, CMP #### [facility] [address] [place] [address] Dr. Debra ObrienUAL DIFF REQNONormalThe [facility] Medical CenterComment on above: Performed By: #### HSTROPN, CMP #### [facility] [address] [place] [address] Dr. Debra Elizondo (RBC) [Entitic mass]34.3 pgCritically high26.7-34.0The [facility] Medical CenterComment on above:Performed By: #### HSTROPN, CMP #### [facility] [address] [place] [address] Dr. Debra Recio (RBC) [Mass/Vol]35.0 g/nMUlmcel38.9-35.2The [facility] Medical CenterComment on above:Performed By: #### HSTROPN, CMP #### [facility] [address] [place] [address] Dr. Debra Recio (RBC) [Entitic vol]98.0 lLSwgjwy33.0-99.0The [facility] Medical CenterComment on above:Performed By: #### HSTROPN, CMP #### [facility] [address] [place] [address] Dr. Debra Hallman #0.9 103/ulCritically high0.3-0.8The [facility] Comment on above:Performed By: #### HSTROPZelalem, CMP #### [facility] [address] [address] [address] Debra Spauldingocytes/100 WBC (Bld)12.7 %Critically high1.7-12.0The [facility] Medical CenterComment on above:Performed By: #### HSTROPN, CMP #### [facility] [address] [place] [address] Dr. Debra Valdovinos #4.4 103/ulNormal1.4-6.5The [facility] Medical CenterComment on above:Performed By: #### HSTROPZelalem, CMP #### [facility] [address] [place] [address] Dr. Debra Alyutrophils/100 WBC (Bld)65.3 %Okkmzi65.0-75.0The [facility] Medical CenterComment on above:Performed By: #### HSTROPN, CMP #### [facility] [address] [place] [address] Dr. Debra Sunglet mean volume (Bld) [Entitic vol]9.0 fLCritically low 9.5-13.5The [facility] CenterComment on above:Performed By: #### HSTROPN, CMP #### [facility] [address] [address] [address] Debra BlakePLT142 103/ulCritically loh776-946Fcq [facility] CenterComment on above:Performed By: #### HSTROPN, CMP #### [facility] [address] [place] [address] Dr. Debra BlakeRBC2.51 106/ulCritically low4.20-5.40The [facility] Medical CenterComment on above:Performed By: #### HSTROPN, CMP #### [facility] [address] [place] [address] Dr. Debra BlakeWBC6.8 103/ulNormal4.0-11.0The [facility] Medical CenterComment on above: Performed By: #### HSTROPN, CMP #### [facility] [address] [place] [address] Dr. Debra Hutchins #0.0 103/ulNormal0.0-0.1The [facility] Medical CenterComment on above:Performed By: #### CBC #### [facility] [address] [place] [address] Dr. Derba BlakeBasophils/100 WBC (Bld)0.5 %Normal0.2-2.0[facility] Comment on above:Performed By: #### CBC #### [facility] [address] [place] [address] Dr. Debra Villasenor #0.1 103/ulNormal0.0-0.7The [facility] CenterComment on above: Performed By: #### CBC #### [facility] [address] [place] [address] Dr. Debra Gallegoosinophils/100 WBC (Bld)0.9 %Normal0.9-7.0The [facility] Comment on above:Performed By: #### CBC #### [facility] [address] [place] [address] Dr. Debra Gallegorythrocyte distribution width (RBC) [Ratio]14.6 %Argtwq67.0-15.[address] [facility] CenterComment on above:Performed By: #### CBC #### [facility] [address] [place] [address] Dr. Debra BlakeHematocrit (Bld) [Volume fraction]26.2 %Critically low36.0-48.0 The [facility] CenterComment on above:Performed By: #### CBC #### [facility] [address] [place] [address] Dr. Debra BlakeHemoglobin (Bld) [Mass/Vol]9.2 g/dLCritically low12.0-16.0[facility] CenterComment on above:Performed By: #### CBC #### [facility] [address] [place] [address] Dr. Debra Bay #0.06 10e3/ulCritically high0.00-0.03The [facility] Comment on above:Performed By: #### CBC #### [facility] [address] [place] [address] Dr. Debra Bay %0.7 %Critically high0.0-0.5The [facility] Medical CenterComment on above:Performed By: #### CBC #### [facility] [address] [place] [address] Dr. Debra Early #1.3 103/ulNormal1.2-3.8The Beldenville HospitalComment on above:Performed By: #### CBC #### [facility] [address] [place] [address] Dr. Debra Childshocytes/100 WBC (Bld)15.7 %Critically low20.5-60.0The [facility] CenterComment on above:Performed By: #### CBC #### [facility] [address] [place] [address] Dr. Debra Grant DIFF REQNONormalThe [facility] CenterComment on above: Performed By: #### CBC #### [facility] [address] [place] [address] Dr. Debra Elizondo (RBC) [Entitic mass]34.2 pgCritically high26.7-34.0The [facility] CenterComment on above:Performed By: #### CBC #### [facility] [address] [place] [address] Dr. Debra Recio (RBC) [Mass/Vol]35.1 g/sTKhcurm46.9-35.2The [facility] CenterComment on above:Performed By: #### CBC #### [facility] [address] [place] [address] Dr. Debra Connell (RBC) [Entitic vol]97.4 uPAplcxx47.0-99.0The [facility] CenterComment on above:Performed By: #### CBC #### [facility] [address] [place] [address] Dr. Debra Hallman #1.1 103/ulCritically high0.3-0.8The [facility] Comment on above:Performed By: #### CBC #### [facility] [address] [place] [address] Dr. Debra Spauldingocytes/100 WBC (Bld)13.3 %Critically high1.7-12.0The [facility] CenterComment on above:Performed By: #### CBC #### [facility] [address] [place] [address] Dr. Debra Valdovinos #5.6 103/ulNormal1.4-6.5The [facility] CenterComment on above:Performed By: #### CBC #### [facility] [address] [place] [address] Dr. Debra Alyutrophils/100 WBC (Bld)68.9 %Ghudqr38.0-75.0The [facility] CenterComment on above:Performed By: #### CBC #### [facility] [address] [place] [address] Dr. Debra Goff mean volume (Bld) [Entitic vol]9.2 fLCritically low 9.5-13.5The [facility] CenterComment on above:Performed By: #### CBC #### [facility] [address] [place] [address] Dr. Debra BlakePLT179 103/pcEnrzji954-375Bqb [facility] CenterComment on above: Performed By: #### CBC #### [facility] [address] [place] [address] Dr. Debra BlakeRBC2.69 106/ulCritically low4.20-5.40The [facility] CenterComment on above:Performed By: #### CBC #### [facility] [address] [place] [address] Dr. Debra BlakeWBC8.1 103/ulNormal4.0-11.0The [facility] CenterComment on above: Performed By: #### CBC #### [facility] [address] [place] [address] Dr. Debra BlakeCreatine kinase [Enzymatic activity/volume] in Serum or Plasma Ordered By: Hong Jewell on 50-07-2708SX [Catalytic activity/Vol]140 U/L 22[facility] HospitalDirect bilirubin measurementOrdered By: Hong Jewell on 84-03-7361Nxyslwdst.direct [Mass/Vol]0.2 mg/dL0.0-0.4 [facility] HospitalFolate [Mass/volume] in Serum or PlasmaOrdered By: Hong Jewell on 57-47-9896Xjnlyx [Mass/Vol]5.1 ng/mL>5.9[facility] HospitalComment on above:Folate reference range: >5.9 ng/ml The WHO technical consultation on folate and vitamin b12 deficiencies has determined that folate concentrations less than 4 ng/ml are considered deficient.Globulin Calc (S) [Mass/Vol]Ordered By: Hong Jewell on 28-26-5811Qyoptqbl (S) [Mass/Vol]3.2 g/dLOhio State East HospitalGlucose mean value [Mass/volume] in Blood Estimated from glycated hemoglobinOrdered By: Hong Jewell on 65-85-5501Garlmtf glucose Estimated from glycated hemoglobin (Bld) [Mass/Vol]97 mg/dLOhio State East HospitalHemoglobin A1c percentageOrdered By: Hong Jewell on 85-38-9965AkZ3w (Bld) [Mass fraction]5.0 %4.3-5.6FOhioHealth Grady Memorial HospitalComment on above:Increased risk for diabetes: 5.7 - 6.4 diabetes: >6.4 glycemic control for adults with diabetes: <7.0Laboratory - Chemistry and Chemistry - challengeOrdered By: Hong Jewell on 44-33-3255Lmysgxuvu (Vitamin B12) [Mass/Vol]520 pg/cL320-687DlciqrikkOhio State East Hospital Laboratory - CoagulationOrdered By: Hong Jewell on 65-80-8142LT Coag (PPP) [Time]12.2 s9.0-12.9[facility] East HospitalMAGNESIUMon 61-75-2419Gugknumex [Mass/Vol]1.1 mg/dLCritically low1.8-2.4The [facility] CenterComment on above:Performed By: #### HSTROPN #### [facility] [address] [address] [address] Debra BlakeMagnesium [Mass/Vol]0.6 mg/dLCritically low1.8-2.4The [facility] CenterComment on above:Performed By: #### HSTROPN, CMP #### [facility] [address] [place] [address] Dr. Debra BlakePROF 14(COMP METB)on 43-77-2032Rsasqsq [Mass/Vol]2.7 g/dL Critically low3.4-5.0The [facility] CenterComment on above:Performed By: #### HSTROPN #### [facility] [address] [place] [address] Dr. Debra BlakeAlbumin/Globulin [Mass ratio]0.8 {ratio}NormalThe [facility] Medical CenterComment on above:Performed By: #### HSTROPN #### [facility] [address] [place] [address] Dr. Debra Garcia [Catalytic activity/Vol]57 U/MMmleqj47-231Fdy [facility] CenterComment on above:Performed By: #### HSTROPN #### [facility] [address] [place] [address] Dr. Debra Piña [Catalytic activity/Vol]7 U/LCritically ebw44-99Qjj [facility] CenterComment on above:Performed By: #### HSTROPN #### [facility] [address] [place] [address] Dr. Debra Espinosa gap [Moles/Vol]17.3 mmol/LNormalThe [facility] Comment on above:Performed By: #### HSTROPN #### [facility] [address] [place] [address] Dr. Debra Faria [Catalytic activity/Vol]14 U/LCritically reu06-65Kgk [facility] CenterComment on above:Performed By: #### HSTROPN #### [facility] [address] [place] [address] Dr. Debra BlakeBilirubin [Mass/Vol]0.6 mg/dLNormal0.2-1.0The [facility] Comment on above:Performed By: #### HSTROPN #### [facility] [address] [place] [address] Dr. Debra BlakeCalcium [Mass/Vol]5.8 mg/dLCritically low8.5-10.1The [facility] CenterComment on above:Result Comment: Test Repeated. Critical Value Verified Performed By: #### HSTROPN #### [facility] [address] [place] [address] Dr. Debra BlakeChloride [Moles/Vol]94 mmol/LCritically gfo62-707Ats [facility] CenterComment on above:Performed By: #### HSTROPN #### [facility] [address] [place] [address] Dr. Debra BlakeCO2 [Moles/Vol]17.7 mmol/LCritically low21.0-32.0The [facility] CenterComment on above:Performed By: #### HSTROPN #### [facility] [address] [place] [address] Dr. Debra BlakeCreatinine [Mass/Vol]2.48 mg/dLCritically high0.55-1.02The [facility] CenterComment on above:Performed By: #### HSTROPN #### [facility] [address] [place] [address] Dr. Richardson ChangEGFR-AF SCFRRIPO52 mL/min/1.47m7Qqynpyytju low>=60The [facility] CenterComment on above:Performed By: #### HSTROPN #### [facility] [address] [place] [address] Dr. Debra GallegoGFR-NON AF JVJCWZCX76 mL/min/1.57o5Iwcpkczlcl low>=60The [facility] CenterComment on above:Performed By: #### HSTROPN #### [facility] [address] [address] [address] Debra BlakeGlobulin (S) [Mass/Vol]3.2 g/dLNoSouthview Medical CenterComment on above:Performed By: #### HSTROPN #### [facility] [address] [place] [address] Dr. Debra BlakeGlucose [Mass/Vol]108 mg/dLCritically lnkv70-230Zuq [facility] CenterComment on above:Performed By: #### HSTROPN #### [facility] [address] [place] [address] Dr. Debra BlakePotassium [Moles/Vol]3.0 mmol/LCritically low3.5-5.1The [facility] CenterComment on above:Performed By: #### HSTROPN #### [facility] [address] [place] [address] Dr. Debra BlakeProtein [Mass/Vol]5.9 g/dLCritically low6.4-8.2The [facility] CenterComment on above:Performed By: #### HSTROPN #### [facility] [address] [place] [address] Dr. Debra BlakeSodium [Moles/Vol]126 mmol/LCritically fuy609-703Zjx [facility] CenterComaspirus ironwood hospital on above:Performed By: #### HSTROPN #### [facility] [address] [place] [address] Dr. Debra BlakeUrea nitrogen [Mass/Vol]29.0 mg/dLCritically high7.0-18.0The [facility] CenterComment on above:Performed By: #### HSTROPN #### [facility] [address] [place] [address] Dr. Debra BlakeUrea nitrogen/Creatinine [Mass ratio]11.7 mg/mgNoSouthview Medical CenterComaspirus ironwood hospital on above:Performed By: #### HSTROPN #### [facility] [address] [place] [address] Dr. Debra BlakeAlbumin [Mass/Vol]3.1 g/dLCritically low3.4-5.0The [facility] HospitalComment on above:Performed By: #### HSTROPN, CMP #### [facility] [address] [place] [address] Dr. Debra BlakeAlbumin/Globulin [Mass ratio]0.8 {ratio}NormalThe [facility] CenterComment on above:Performed By: #### HSTROPN, CMP #### [facility] [address] [place] [address] Dr. Debra ChungP [Catalytic activity/Vol]65 U/BGfqtvd20-698Nxi [facility] CenterComment on above:Performed By: #### HSTROPN, CMP #### [facility] [address] [place] [address] Dr. Debra Piña [Catalytic activity/Vol]9 U/LCritically dzn96-59Plv [facility] CenterComment on above:Performed By: #### HSTROPN, CMP #### [facility] [address] [place] [address] Dr. Debra Espinosa gap [Moles/Vol]17.3 mmol/LNormalThe [facility] Comment on above:Performed By: #### HSTROPN, CMP #### [facility] [address] [place] [address] Dr. Debra BlakeAST [Catalytic activity/Vol]17 U/OZjophg32-71Tng [facility] Hospitalment on above:Performed By: #### HSTROPN, CMP #### [facility] [address] [place] [address] Dr. Debra BlakeBilirubin [Mass/Vol]0.8 mg/dLNormal0.2-1.0The [facility] Comment on above:Performed By: #### HSTROPN, CMP #### [facility] [address] [place] [address] Dr. Debra BlakeCalcium [Mass/Vol]5.8 mg/dLCritically low8.5-10.1[facility] Medical CenterComment on above:Result Comment: Test Repeated. Critical Value Verified Performed By: #### HSTROPN, CMP #### [facility] [address] [address] [address] Debra BlakeChloride [Moles/Vol]91 mmol/LCritically udr78-078Hrt [facility] CenterComment on above:Performed By: #### HSTROPN, CMP #### [facility] [address] [place] [address] Dr. Debra BlakeCO2 [Moles/Vol]19.6 mmol/LCritically low21.0-32.0The [facility] CenterComment on above:Performed By: #### HSTROPN, CMP #### [facility] [address] [address] [address] Debra BlakeCreatinine [Mass/Vol]2.66 mg/dLCritically high0.55-1.02The [facility] CenterComment on above:Performed By: #### HSTROPN, CMP #### [facility] [address] [place] [address] Dr. Richardson ChangEGFR-AF HBOAMVWS65 mL/min/1.25d6Kuifyvbuwn low>=60The [facility] CenterComment on above:Performed By: #### HSTROPN, CMP #### [facility] [address] [address] [address] Debra GallegoGFR-NON AF YZAGYFPF85 mL/min/1.63c4Nudiotmfic low>=60The [facility] Hospitalment on above:Performed By: #### HSTROPN, CMP #### [facility] [address] [address] [address] Debra BlakeGlobulin (S) [Mass/Vol]3.7 g/dLNormalThe [facility] CenterComment on above:Performed By: #### HSTROPN, CMP #### [facility] [address] [address] [address] Debra BlakeGlucose [Mass/Vol]106 mg/vLVrhhfe98-198Vbm [facility] Comment on above:Performed By: #### HSTROPN, CMP #### [facility] [address] [address] [address] Debra BlakePotassium [Moles/Vol]2.8 mmol/LCritically low3.5-5.1The [facility] CenterComment on above:Result Comment: Test Repeated. Critical Value Verified Performed By: #### HSTROPN, CMP #### [facility] [address] [address] [address] Debra BlakeProtein [Mass/Vol]6.8 g/dLNormal6.4-8.2The [facility] Comment on above:Performed By: #### HSTROPN, CMP #### [facility] [address] [place] [address] Dr. Debra BlakeSodium [Moles/Vol]123 mmol/LCritically msd877-240Apk [facility] CenterComment on above:Result Comment: Test Repeated. Critical Value Verified Performed By: #### HSTROPN, CMP #### [facility] [address] [place] [address] Dr. Debra BlakeUrea nitrogen [Mass/Vol]29.0 mg/dLCritically high7.0-18.0The [facility] CenterComment on above:Performed By: #### HSTROPN, CMP #### [facility] [address] [place] [address] Dr. Debra Hurst nitrogen/Creatinine [Mass ratio]10.9 mg/mgNormalThe [facility] CenterComment on above:Performed By: #### HSTROPN, CMP #### [facility] [address] [place] [address] Dr. Debra BlakePhosphate [Mass/volume] in Serum or PlasmaOrdered By: Hong Jewell on 27-56-9007Awnndyedp [Mass/Vol]3.6 mg/dL2.5-4.6FOhioHealth Grady Memorial HospitalPlatelet poor plasma international normalized ratio (INR) by coagulation assay (relatOrdered By: Hong Jewell on 32-32-1563REO Coag (PPP) [Relative time]1.1 {INR}[facility] HospitalComment on above: INR Therapeutic Range A) Pre- and Peroperative OAT started two weeks before surgery. NOT HIP SURGERY: 1.5 - 2.5 HIP SURGERY: 2 - 3 B) Primary and secondary prevention of venous THROMBOSIS: 2 - 3 C) Active venous thrombosis, pulmonary embolism and prevention of recurrent venous thrombosis: 2 - 3 D) Prevention of arterial thromboembolism including patients with mechanical heart valves: 3 - 4.5Protein [Mass/volume] in Serum or PlasmaOrdered By: Hong Jewell on 78-47-6778Ykaxylp [Mass/Vol] 6.2 g/dL6.1-7.9UK Healthcareerum ionized calcium measurement using ion specific electrode (mass/volume)Ordered By: Hong Jewell on 41-54-4069Ebejlio.ionized ISE [Mass/Vol]3.5 mg/dL4.5-5.6FOhioHealth Grady Memorial HospitalComment on above:Performed at: [facility] [id number] Mathematics Professor: Sanford Mehta PhD, Phone: [phone] or plasma alanine aminotransferase measurement without P-5'-P (enzymatic activiOrdered By: Hong Jewell on 18-58-9183LGN No additional P-5'-P [Catalytic activity/Vol]8 U/H73-77TmmgzwociUK Healthcareerum or plasma albumin/globulin mass ratioOrdered By: Hong Jewell on 12-04-2021 Albumin/Globulin [Mass ratio]0.9 {ratio}[facility] Healthcareerum or plasma alkaline phosphatase measurement (enzymatic activity/volume)Ordered By: Hong Jewell on 28-39-7419RLG [Catalytic activity/Vol]51 U/L32-92 [facility] Healthcareerum or plasma aspartate aminotransferase measurement (enzymatic activity/volume)Ordered By: Hong Jewell on 60-23-5883IZO [Catalytic activity/Vol]15 U/M71-97VyxujgoxdUK Healthcareerum or plasma creatine kinase MB (CKMB)/total creatine kinase (CK) ratio by calculaOrdered By: Hong Jewell on 22-68-4192TZ.MB Calc [Catalytic fraction]1.4 %0.00-2.50UK Healthcareerum or plasma creatine kinase MB measurement (mass/volume)Ordered By: Hong Jewell on 68-01-3165ES.MB [Mass/Vol]2.0 ng/mL0.6-6.3FSouthern [place] Medical Centererum or plasma non-glucuronidated bilirubin measurement (mass/volume)Ordered By: Hong Jewell on 91-01-1106Dsffoepni.indirect [Mass/Vol]0.6 mg/dL [facility] Healthcareerum or plasma prealbumin measurement (mass/volume)Ordered By: Hong Jewell on 23-67-9376Vuexcyegfq [Mass/Vol] 15.8 mg/dL18.0-38.0UK Healthcareerum or plasma total bilirubin measurement (mass/volume)Ordered By: Hong Jewell on 57-19-8489Bepbcthxz [Mass/Vol]0.8 mg/dL0.3-1.2FOhioHealth Grady Memorial Hospital TROPONIN, HIGH SENSITIVITYon 19-36-9945CNTDEV84.0 pg/mLCritically high4.0-51.3 The [facility] CenterComment on above:Result Comment: CUT-OFF POINTS HAVE BEEN ESTABLISHED BASED ON THE FOURTH UNIVERSAL DEFINITIONS OF MYOCARDIAL INFARCTION. THE UPPER REFERENCE LIMIT (URL) OF TROPONIN, DEFINED THE 99TH PERCENTILE OF cTnI DISTRIBUTION IN A REFERENCE POPULATION, HAS BEEN CONFIRMED THE DECISION THRESHOLD FOR [place] DIAGNOSIS.Performed By: #### HSTROPN, CMP #### [facility] [address] [place] [address] Dr. Debra RappTROP107.8 pg/mLCritically high4.0-51.3The [facility] Comment on above:Result Comment: CUT-OFF POINTS HAVE BEEN ESTABLISHED BASED ON THE FOURTH UNIVERSAL DEFINITIONS OF MYOCARDIAL INFARCTION. THE UPPER REFERENCE LIMIT (URL) OF TROPONIN, DEFINED THE 99TH PERCENTILE OF cTnI DISTRIBUTION IN A REFERENCE POPULATION, HAS BEEN CONFIRMED THE DECISION THRESHOLD FOR [place] DIAGNOSIS.Performed By: #### HSTROPN #### [facility] [address] [place] [address] Dr. Debra Goldstein 55-40-2241AST7.321 uIU/mLCritically low0.358-3.740The [facility] CenterComment on above:Performed By: #### HSTROPN, CMP #### [facility] [address] [address] [address] Debra Haji DL <= 0.005 mIU/L QnOrdered By: Hong Jewell on 37-94-5692UYJ Qn0.39 m[IU]/L0.45-5.33[facility] HospitalUrine lactic acid measurementOrdered By: Hong Jewell on 17-87-9992Iziwvuu (U) [Moles/Vol]1.3 mmol/L0.5-2.2FOhioHealth Grady Memorial HospitalCBC AUTO DIFFon 03-83-3949TPVK #0.1 103/ulNormal0.0-0.1The [facility] CenterComment on above: Performed By: #### HSTROPN #### [facility] [address] [address] [address] Debra BlkaeBasophils/100 WBC (Bld)0.6 %Normal0.2-2.0[facility] Comment on above:Performed By: #### HSTROPN #### [facility] [address] [address] [address] Debra Villasenor #0.1 103/ulNormal0.0-0.7The [facility] CenterComment on above: Performed By: #### HSTROPN #### [facility] [address] [address] [address] Debra Gallegoosinophils/100 WBC (Bld)1.5 %Normal0.9-7.0[facility] Comment on above:Performed By: #### HSTROPN #### [facility] [address] [address] [address] Debra Gallegorythrocyte distribution width (RBC) [Ratio]14.6 %Autpom26.0-15.[address] Vincent Medical CenterComment on above:Performed By: #### HSTROPN #### [facility] [address] [address] [address] Debra BlakeHematocrit (Bld) [Volume fraction]27.4 %Critically low36.0-48.0 The [facility] CenterComment on above:Performed By: #### HSTROPN #### [facility] [address] [place] [address] Dr. Debra BlakeHemoglobin (Bld) [Mass/Vol]9.7 g/dLCritically low12.0-16.0The [facility] CenterComment on above:Performed By: #### HSTROPN #### [facility] [address] [place] [address] Dr. Debra Bay #0.08 10e3/ulCritically high0.00-0.03The [facility] Comment on above:Performed By: #### HSTROPN #### [facility] [address] [place] [address] Dr. Debra Bay %0.9 %Critically high0.0-0.5The [facility] CenterComment on above:Performed By: #### HSTROPN #### [facility] [address] [place] [address] Dr. Debra Early #1.9 103/ulNormal1.2-3.8The [facility] CenterComment on above:Performed By: #### HSTROPN #### [facility] [address] [place] [address] Dr. Debra Childshocytes/100 WBC (Bld)20.9 %Qjaznp00.5-60.0The [facility] CenterComment on above:Performed By: #### HSTROPN #### [facility] [address] [place] [address] Dr. Debra ObrienUAL DIFF REQNONormalThe [facility] CenterComment on above: Performed By: #### HSTROPN #### [facility] [address] [place] [address] Dr. Debra Elizondo (RBC) [Entitic mass]34.5 pgCritically high26.7-34.0The [facility] CenterComment on above:Performed By: #### HSTROPN #### [facility] [address] [place] [address] Dr. Debra RecioHC (RBC) [Mass/Vol]35.4 g/dLCritically high29.9-35.2The [facility] CenterComment on above:Performed By: #### HSTROPN #### [facility] [address] [place] [address] Dr. Debra RecioV (RBC) [Entitic vol]97.5 zYLkxsnc67.0-99.0The [facility] HospitalComment on above:Performed By: #### HSTROPN #### [facility] [address] [place] [address] Dr. Debra Hallman #1.3 103/ulCritically high0.3-0.8The [facility] Comment on above:Performed By: #### HSTROPN #### [facility] [address] [place] [address] Dr. Debra Spauldingocytes/100 WBC (Bld)14.3 %Critically high1.7-12.0The [facility] CenterComment on above:Performed By: #### HSTROPN #### [facility] [address] [place] [address] Dr. Debra Valdovinos #5.5 103/ulNormal1.4-6.5The [facility] CenterComment on above:Performed By: #### HSTROPN #### [facility] [address] [place] [address] Dr. Debra Alyutrophils/100 WBC (Bld)61.8 %Ssopwb30.0-75.0The [facility] CenterComment on above:Performed By: #### HSTROPN #### [facility] [address] [place] [address] Dr. Debra Goff mean volume (Bld) [Entitic vol]9.2 fLCritically low 9.5-13.5The [facility] CenterComment on above:Performed By: #### HSTROPN #### [facility] [address] [place] [address] Dr. Debra OchoaT187 103/ulCgqijo737-526Yzf [facility] CenterComment on above: Performed By: #### HSTROPN #### [facility] [address] [place] [address] Dr. Debra BlakeRBC2.81 106/ulCritically low4.20-5.40The [facility] CenterComment on above:Performed By: #### HSTROPN #### [facility] [address] [place] [address] Dr. Debra BlakeWBC8.9 103/ulNormal4.0-11.0The [facility] CenterComment on above: Performed By: #### HSTROPN #### [facility] [address] [place] [address] Dr. Debra BlakeCovid-19 PCR (CVDTB)on 64-75-1616KNTK-CoV-2 (COVID-19) RNA YVONNE+probe Ql (Unsp spec)Not detectedNormalNOT DETECTEDThe [facility] Comment on above:Result Comment: When diagnostic testing is negative, the [...] for this test is supported by the [place] of Health and Human Service's declaration that circumstances exist to justify the emergency use of in vitro diagnostics for the detection and/or diagnosis of the virus that causes COVID-19. This EUA will remain in effect for the duration of the COVID-19 declaration justifying emergency of IVDs, unless it is terminated or revoked by the FDA (after which the test may no longer be used).Performed By: #### CVDTBH #### [facility] [address] [place] [address] Dr. Richardson ChangEChristos URINE PROFILEon 37-72-0783Vbuhfrimm Ql (U)NegativeNormal NEGATIVEThe [facility] CenterComment on above:Performed By: #### STEPHANE, ERUR #### [facility] [address] [address] [address] Debra Centenoarity (U)CLEARNormalCLEARMercy Health St. Vincent Medical CenterComment on above: Performed By: #### STEPHANE, ERUR #### [facility] [address] [address] [address] Debra Pedroza (U)LT. YELLOWNormalYELLOWMercy Health St. [facility] Medical CenterComment on above:Performed By: #### STEPHANE, ERUR #### [facility] [address] [address] [address] Debra Francisco micrscopic examination will be performed if indicated. NormalMercy Health St. Vincent Medical CenterComaspirus ironwood hospital on above:Performed By: #### STEPHANE, ERUR #### [facility] [address] [address] [address] Debra BlakeGlucose Ql (U)NegativeNormalNEGATIVEMercy Health St. Vincent Medical CenterComment on above:Performed By: #### STEPHANE, ERUR #### [facility] [address] [address] [address] Debra BlakeHemoglobin Ql (U)TRACE-LYSEDAbnormalNEGAultman Alliance Community Hospital on above:Performed By: #### STEPHANE, ERUR #### [facility] [address] [address] [address] Debra BlakeKetones Ql (U)NegativeNormalNEGATIVEMercy Health St. Vincent Medical CenterComment on above:Performed By: #### STEPHANE, ERUR #### [facility] [address] [address] [address] Debra BlakeLEUKOCYTESMODERATEAbnormalNEGATIVEMercy Health St. [facility] Medical CenterComaspirus ironwood hospital on above:Performed By: #### STEPHANE, ERUR #### [facility] [address] [address] [address] Debra BlakeNitrite Ql (U)NegativeNormalNEGATIVEMercy Health St. [facility] Medical CenterComment on above:Performed By: #### STEPHANE, ERUR #### [facility] [address] [place] [address] Dr. Debra Laureano (U)6.0 [pH]Normal5-9The [facility] CenterComment on above: Performed By: #### STEPHANE ERUR #### [facility] [address] [place] [address] Dr. Debra BlakeSPEC GRAVITY1.845Ayqbox3.005-<=1.025The [facility] CenterComment on above:Performed By: #### STPEHANE, ERUR #### [facility] [address] [place] [address] Dr. Debra Diamond PROTEINTRACENormalNEGATIVE/ TRACEThe [facility] CenterComment on above:Performed By: #### STEPHANE, ERUR #### [facility] [address] [place] [address] Dr. Debra Frey MICRO INDINDICATEDNormalThe [facility] CenterComment on above: Performed By: #### STEPHANE, ERUR #### [facility] [address] [place] [address] Dr. Debra BlakeUrobilinogen Qn (U)0.2 {Pascale'U}/dLNormal0.2 - 1.0The [facility] CenterComment on above:Performed By: #### STEPHANE, ERUR #### [facility] [address] [place] [address] Dr. Debra BlakeMAGNESIUMon 38-19-0478Abfmiytge [Mass/Vol]0.4 mg/dLCritically low 1.8-2.4The [facility] CenterComment on above:Performed By: #### MG #### [facility] [address] [place] [address] Dr. Debra BlakePROF 14(COMP METB)on 04-54-4211Gpggbuk [Mass/Vol]3.2 g/dL Critically low3.4-5.0The [facility] CenterComment on above:Performed By: #### HSTROPN, CMP #### [facility] [address] [place] [address] Dr. Debra BlakeAlbumin/Globulin [Mass ratio]0.8 {ratio}NormalThe [facility] CenterComment on above:Performed By: #### HSTROPN, CMP #### [facility] [address] [place] [address] Dr. Debra ChungP [Catalytic activity/Vol]64 U/BIygros85-636Yzy [facility] CenterComment on above:Performed By: #### HSTROPN, CMP #### [facility] [address] [place] [address] Dr. Debra ChungT [Catalytic activity/Vol]11 U/LCritically lgz44-68Tdg [facility] CenterComment on above:Performed By: #### HSTROPN, CMP #### [facility] [address] [place] [address] Dr. Debra Harleyon gap [Moles/Vol]19.5 mmol/LNormalThe [facility] Comment on above:Performed By: #### HSTROPN, CMP #### [facility] [address] [place] [address] Dr. Debra BlakeAST [Catalytic activity/Vol]19 U/BEudhrv12-51Stn [facility] CenterComment on above:Performed By: #### HSTROPN, CMP #### [facility] [address] [place] [address] Dr. Debra BlakeBilirubin [Mass/Vol]0.5 mg/dLNormal0.2-1.0The [facility] Comment on above:Performed By: #### HSTROPN, CMP #### [facility] [address] [place] [address] Dr. Debra BlakeCalcium [Mass/Vol]5.8 mg/dLCritically low8.5-10.1The [facility] CenterComment on above:Performed By: #### HSTROPN, CMP #### [facility] [address] [place] [address] Dr. Debra BlakeChloride [Moles/Vol]88 mmol/LCritically tgd16-432Blz [facility] CenterComment on above:Performed By: #### HSTROPN, CMP #### [facility] [address] [address] [address] Debra BlakeCO2 [Moles/Vol]19.7 mmol/LCritically low21.0-32.0The [facility] CenterComment on above:Performed By: #### HSTROPN, CMP #### [facility] [address] [address] [address] Debra BlakeCreatinine [Mass/Vol]2.77 mg/dLCritically high0.55-1.02The [facility] CenterComment on above:Performed By: #### HSTROPN, CMP #### [facility] [address] [place] [address] Dr. Debra GallegoGFR-AF XYTOZQFO66 mL/min/1.09d2Vyfmxuusyj low>=60The [facility] CenterComment on above:Performed By: #### HSTROPN, CMP #### [facility] [address] [place] [address] Dr. Debra GallegoGFR-NON AF SLSERSPY42 mL/min/1.50d5Fayhyyeqno low>=60The [facility] CenterComment on above:Performed By: #### HSTROPN, CMP #### [facility] [address] [place] [address] Dr. Debra BlakeGlobulin (S) [Mass/Vol]3.9 g/dLNormalThe [facility] CenterComment on above:Performed By: #### HSTROPN, CMP #### [facility] [address] [place] [address] Dr. Debra BlakeGlucose [Mass/Vol]99 mg/sTLswjft27-202Bpr [facility] Comment on above:Performed By: #### HSTROPN, CMP #### [facility] [address] [place] [address] Dr. Debra BlakePotassium [Moles/Vol]3.2 mmol/LCritically low3.5-5.1The [facility] CenterComment on above:Performed By: #### HSTROPN, CMP #### [facility] [address] [place] [address] Dr. Debra BlakeProtein [Mass/Vol]7.1 g/dLNormal6.4-8.2The [facility] Comment on above:Performed By: #### HSTROPN, CMP #### [facility] [address] [place] [address] Dr. Debra BlakeSodium [Moles/Vol]124 mmol/LCritically bcg548-747Gdx [facility] CenterComment on above:Performed By: #### HSTROPN, CMP #### [facility] [address] [place] [address] Dr. Debra BlakeUrea nitrogen [Mass/Vol]28.0 mg/dLCritically high7.0-18.0The [facility] CenterComment on above:Performed By: #### HSTROPN, CMP #### [facility] [address] [place] [address] Dr. Debra BlakeUrea nitrogen/Creatinine [Mass ratio]10.1 mg/mgNormalThe [facility] CenterComment on above:Performed By: #### HSTROPN, CMP #### [facility] [address] [place] [address] Dr. Debra Metz, HIGH SENSITIVITYon 22-54-4277GRNJQD56.9 pg/mLCritically high4.0-51.3The [facility] CenterComment on above:Result Comment: CUT-OFF POINTS HAVE BEEN ESTABLISHED BASED ON THE FOURTH UNIVERSAL DEFINITIONS OF MYOCARDIAL INFARCTION. THE UPPER REFERENCE LIMIT (URL) OF TROPONIN, DEFINED THE 99TH PERCENTILE OF cTnI DISTRIBUTION IN A REFERENCE POPULATION, HAS BEEN CONFIRMED THE DECISION THRESHOLD FOR [place] DIAGNOSIS.Performed By: #### HSTROPN, CMP #### [facility] [address] [place] [address] Dr. Debra BlakeHSTROP102.0 pg/mLCritically high4.0-51.3TCleveland [facility] Comment on above:Result Comment: CUT-OFF POINTS HAVE BEEN ESTABLISHED BASED ON THE FOURTH UNIVERSAL DEFINITIONS OF MYOCARDIAL INFARCTION. THE UPPER REFERENCE LIMIT (URL) OF TROPONIN, DEFINED THE 99TH PERCENTILE OF cTnI DISTRIBUTION IN A REFERENCE POPULATION, HAS BEEN CONFIRMED THE DECISION THRESHOLD FOR [place] DIAGNOSIS.Performed By: #### HSTROPN, CMP #### [facility] [address] [address] [address] Debra Moore MICROSCOPIC ONLYon 63-10-4561QXASWSYZMGENBDextgjbuMCPK SEEN [facility] on above:Performed By: #### STEPHANE, ERUR #### [facility] [address] [address] [address] Debra Reyna identified Cx Nom (U)INDICATEDNormalThUC HealthComaspirus ironwood hospital on above:Performed By: #### STEPHANE, ERUR #### [facility] [address] [address] [address] Debra Willett SEENNormalNONE SEENMercy Health Fairfield Hospital on above:Performed By: #### STEPHANE, ERUR #### [facility] [address] [place] [address] Dr. Debra Yuystals LM Nom (Urine sed)NONE SEENNormalNONE SEENMercy Health Fairfield Hospital on above:Performed By: #### STEPHANE, ERUR #### [facility] [address] [address] [address] Richardson ChangEpithelial cells LM Ql (Urine sed)FEWAbnormalNONE SEEN /RAREThe [facility] on above:Performed By: #### STEPHANE, ERUR #### [facility] [address] [address] [address] Debra FreemanCOUSNONE SEENNormalNONE SEENMercy Health Fairfield Hospital on above:Performed By: #### STEPHANE, ERUR #### [facility] [address] [address] [address] Debra BlakeHqvznITQ7-5Cohwpwgc8-2Ydg [facility] on above:Performed By: #### STEPHANE, ERUR #### [facility] [address] [address] [address] Debra BlakeWBC (U) [#/Vol]/uLAbnormalNONE SEENThe [facility] HospitalComment on above:Performed By: #### MARIO CALDERÓN #### [facility] [address] [place] [address] Dr. Debra BlakeXR CHEST 1 Von 36-82-0036AL CHEST 1 VEXAMINATION: XR CHEST 1 V HISTORY: Dizziness COMPARISON: Chest x-rays 02/19/2015 TECHNIQUE: Portable chest FINDINGS: The lung parenchyma is free of consolidation or infiltrate. No pneumothorax or pleural effusion. The cardiac, mediastinal and hilar contours are normal. The visualized osseous structures exhibit no gross abnormality. IMPRESSION: No acute cardiopulmonary abnormality. Electronically authenticated by: CODY ALEXANDER Date: 2021-12-03 19:03[facility] Vital Signs Date TimeVital SignValuePerforming SjbyvgnwoQekcfrjn76-19-4017 16:32-6837AjK7% (BldA) [Mass fraction]91 %[facility] CENTERMANAdams [facility] Regional [facility] Center HospitalComment on above:Performed By: #### ABG ####[facility] ([id number])[address] [place], [place] 5692938-90-5918 20:56-3402UfV2% (BldA) [Mass fraction]99 % [facility] CENTERMANAdams [facility] Center HospitalComment on above:Performed By: #### VBG ####[facility] ([id number])[address] [place] [address] 06-25-2024 04:20-8367SrB1% (BldA) [Mass fraction]100 %[facility] REHMANAd[facility] HospitalComment on above:Performed By: #### ABG ####[facility] ([id number])[address] [place], [place] [id number] 14:41-0400 SaO2% (BldA) [Mass fraction]100 %[facility] MED[facility] CENTERMANProGenesis Hospital HospitalComment on above:Performed By: #### ABG ####[facility] ([id number])[address] [place], [place] 5964915-29-4094 04:59-6576YiY1% (BldA) [Mass fraction]100 %LUCIANA REHMANProMedica Lynn HospitalComment on above:Performed By: #### ABG ####[facility] ([id number])2 [facility] [place] [address] 06-22-2024 05:02-2938LnA5% (BldA) [Mass fraction]97 %LUCIANA REHMANProMedica Lynn HospitalComment on above:Performed By: #### ABG ####[facility] ([id number])[address] [place], [place] 6951619-18-0039 05:57-0400 SaO2% (BldA) [Mass fraction]97 %LUCIANA REHMANProMedica Lynn HospitalComment on above:Performed By: #### ABG ####[facility] ([id number])[address] [address]70603-13-2025 04:22-7478AaG2% (BldA) [Mass fraction]100 %LUCIANA REHMANProMedica Lynn HospitalComment on above:Performed By: #### ABG ####[facility] ([id number])[address] [facility] [place] [address] 06-16-2024 04:39-8866IeB0% (BldA) [Mass fraction]94 %LUCIANA REHMANProMedica Lynn HospitalComment on above:Performed By: #### ABG ####[facility] ([id number])[address] [place], [place] [id number] 03:45-0500 SaO2% (BldA) [Mass fraction]97 %LUCIANA REHMANProMedica Lynn HospitalComment on above:Performed By: #### ABG ####[facility] ([id number])[address] [facility] SYSTEMCyndie [address] [place] [address]6926[address]-31-8639 16:44-6954VbM9% (BldA) [Mass fraction]97 %[facility] HospitalComment on above:Performed By: #### ABG ####[facility] ([id number])2 [facility] [place] [address] 06-14-2024 12:03-2622GzY8% (BldA) [Mass fraction]96 %[facility] HospitalComment on above:Performed By: #### VBG ####[facility] ([id number])[address] [place], [place] 1227423-92-6100 20:05-0500 SaO2% (BldA) [Mass fraction]88 %[facility] SpringfieldComment on above:Performed By: #### VBG ####[facility] ([id number])[address] [place], [place] 8569505-78-3159 14:41-0400Diastolic blood numkihlx779 mm[Hg][facility]09-18-2024 14:41-0400Heart rate86 /min Katie Velasquez APRN Work Phone: [facility]09-18-2024 14:41-0400 Systolic blood dbckpxop723 mm[Hg][facility]09-18-2024 14:35-0400Body niobim801.1 cmOhio [facility] Hospital09-18-2024 14:35-0400Body mass index (BMI) [Ratio]28.3 kg/d2KfbtwnrfzOhio State East Hospital09-18-2024 14:35-0400Body nefhsjhjakb17 [degF][facility]09-18-2024 14:35-0400Body lilheo58.16 kgOhio [facility] Hospital 12-27-2023 14:35-0400Heart adxp552 /[facility] 12-27-2023 14:35-0400Respiratory rate20 /[facility] 12-27-2023 14:35-5172HoR6% (BldA) [Mass fraction]99 %[facility]06-20-2024 14:43-0400Body hwwxik978.1 cmOhio [facility] 09-28-2023 14:43-0400Body mass index (BMI) [Ratio]25.6 kg/x5UbipipzzpOhio State East Hospital06-20-2024 14:43-0400Body brgece54.85 kgOhio [facility] Hospital06-20-2024 14:43-0400Diastolic blood kttwqyga64 mm[Hg][facility]06-20-2024 14:43-0400Heart rate77 /minOhio State East Hospital06-20-2024 14:43-9031SdY9% (BldA) [Mass fraction]98 %[facility]06-20-2024 14:43-0400Systolic blood evvuecri988 mm[Hg][facility]12-06-2022 20:42-0500Diastolic blood zhkwetdr32 mm[Hg][employer] Work Phone: 1(194)647-[address] [place], [place] 3788612-06-2022 20:42-0500 Heart rate98 /minDO [employer] Work Phone: 1(463)513-[address] [place], [place] 3788612-06-2022 20:42-0500 Respiratory rate18 /minDO [employer] Work Phone: 1(534)737-[address] [place], [place] 3788612-06-2022 20:42-0500 SaO2% (BldA) [Mass fraction]99 %[employer] Work Phone: 1(884)770-[address] [place], [place] 3788612-06-2022 20:42-0500 Systolic blood pnwovgad414 mm[Hg][employer] Work Phone: [phone]12-06-2022 18:02-0500 Body mzjncliqigd82 [degF][employer] Work Phone: 1(729)4-[address] [place], [place] 3788612-06-2022 17:59-0500 Body bsaguj355.56 cmDO [employer] Work Phone: [facility]12-06-2022 17:59-0500 Body .3 kgDO Segundo House Work Phone: [facility]12-06-2022 17:40-0500 Body stdzsi352.1 cmAbdul Vaibhav Other [employer] Other 12-06-2022 17:40-0500Body mass index (BMI) [Ratio] 25.39 kg/p4Kvojk Vaibhav Other [employer] Other 12-06-2022 17:40-0500Body jevkinfuqag03.6 [degF]William Vaibhav Other [employer] Other 12-06-2022 17:40-0500Body yavhtq93.22 kgAbdul Vaibhav Other [employer] Other 12-06-2022 17:40-0500Diastolic blood ruowqemx127 mm[Hg]William Vaibhav Other [employer] Other 12-06-2022 17:40-0500Respiratory rate18 /minAbdul Vaibhav Other [employer] Other 12-06-2022 17:40-7145QeP3% (BldA) [Mass fraction]98 % William Vaibhav Other [employer] Other 12-06-2022 17:40-0500Systolic blood lspmfbso162 mm[Hg] William Vaibhav Other [employer] Other 603400-46-1244 11:52-0400Body zlgtyvozvtc36 [degF]DO Segundo Gl[employer] Work Phone: [facility]09-02-2022 11:52-0400 Diastolic blood sirmdxuw48 mm[Hg][employer] Work Phone: 1(838)501-[address] [place], [place] 3788609-02-2022 11:52-0400 Heart rate77 /Allan Raymond [employer] Work Phone: [phone])[address]09-02-2022 11:52-0400 Respiratory rate16 /minDO Segundo Globev[employer]or Work Phone: 1(027)6-[address] [place], [place] 3788609-02-2022 11:52-0400 SaO2% (BldA) [Mass fraction]99 %[employer] Work Phone: 1([phone])[address]09-02-2022 11:52-0400 Systolic blood tbwyhjrb430 mm[Hg][employer] Work Phone: 1(735)[address] [place], [place] 8383009-02-2022 06:00-0400 Body yztbyd46 kgDO [employer] Work Phone: 1(105)[address]08-31-2022 14:53-0400 Body lqugng355.1 cmDO [employer] Work Phone: 1([phone] [place] [address] Encounters Encounter DateEncounter TypeCare ProviderFacilityStart: 36-45-1802phmwehffzbXOK FAVIO A LEHMANNFacility:[facility] BellevueStart: 12-18-2024 End: 47-28-0000dpvuxbqstlTRZ FAVIO Alvarado LEHMANNFacility:[facility] BellevueStart: 03-63-7190kgscxynmysCYI FAVIO LEANNFacility:[facility] BellevueStart: 09-17-2024 End: 44-27-7169Agegasqclg and management of inpatientMichael Frings Facility:[facility] Healthcaretart: 09-12-2024 End: 88-52-4650wnbjzkycdeNLW C MILLERMedina Hospitaltart: 09-09-2024 End: 95-46-6682Ezwmjcfat encounterJerardo Ruth REGISTERED CLIENT ASSOCIATE Work Phone: NOTW FMStart: 08-28-2024 End: 81-58-4129Pwiadyhkx Result EncounterKiairam Stone Ruth REGISTERED CLIENT ASSOCIATE Work Phone: [facility] External Department UnsolicitedStart: 08-28-2024 End: 22-44-3279Ehnfnhnwh Result EncounterKiairam Ruth REGISTERED CLIENT ASSOCIATE Work Phone: [facility] External Department UnsolicitedStart: 08-26-2024 End: 57-42-9727Lnqeiuxda encounterKiairam Ruth REGISTERED CLIENT ASSOCIATE Work Phone: [facility] CI FMStart: 08-16-2024 End: 37-83-9206Shqvvxqok encounterKiairam Ruth REGISTERED CLIENT ASSOCIATE Work Phone: [facility] CI FMStart: 07-26-2024 End: 32-91-0209Nhxbsunrv encounterJerardo Ruth REGISTERED CLIENT ASSOCIATE Work Phone: [facility] CI FMStart: 07-09-2024 End: 24-73-0981gstsxcofjoZwil A Noori MD Work Phone: [facility] Sign InStart: 06-14-2024 ambulatoryMag[facility]uder [facility] Ambulatory PPGStart: 06-13-2024 End: 67-77-7637Ckyvcjeoju and management of inpatientSMercy Health [facility] HospitalStart: 06-13-2024 End: 02-19-2695ncieqtrsjuVWNYFHT PROVIDERFacility:METROHealthStart: 06-13-2024 Non-patient / Non-visitJennifer Eva WEIGH BOX TENDER Work Phone: [facility] GroupAr[facility] Work Phone: Start: 10-01-6555Mjw-patient / Non-visitJennifer Locorbacher WEIGH BOX TENDER Work Phone: [facility] GroupAr[facility] Work Phone: Start: 06-12-2024 End: 32-99-4477icmdzazqjmIulbtsrn Rohrbacher WEIGH BOX TENDER Work Phone: [facility] Work Phone: start: 06-12-2024 End: 36-54-1880Qrnnbfzo ReferredJennifer Locorbacher WEIGH BOX TENDER Work Phone: [facility]-LAB Path Spec [place] HospStart: 04-22-2024 End: 52-24-5957Bji-patient / Non-visitJenndaniel Adanrbacher WEIGH BOX TENDER Work Phone: [facility] Work Phone: Start: 02-19-2024 End: 46-65-4927fzschskldjGbjnitet Rohrbacher WEIGH BOX TENDER Work Phone: [facility] Work Phone: Start: 02-19-2024 End: 92-48-5972Mwzoxfoo ReferredRaoulnnifer Locorbacher WEIGH BOX TENDER Work Phone: [facility]-LAB Path Spec [place] HospStart: 12-27-2023 End: 60-93-3751njqygbyaeiIsuuopkqzWayne [facility]Care [facility] Work Phone: Start: 12-27-2023 End: 95-24-0223Otktvan encounter procedureWashington Regional Medical Center Physician [facility] Work Phone: Start: 10-02-2023 End: 72-67-8863Sxcbbadlo encounterAbhijit Pink CMAProMedica Physicians RheumatologyStart: 09-28-2023 End: 91-67-9919brjddtcrpiJtdupzsbqWayne HealthCare Main Campus Work Phone: Start: 09-28-2023 End: 66-96-9199Fvdqnth encounter procedureWashington Regional Medical Center Physician [facility] Work Phone: Start: 03-15-2022 End: 05-70-9978Ecocfabke department patient visitDO [facility] Work Phone: [facility]-Emergency RoomStart: 03-15-2022 End: 60-32-8038xuxgojzbhxZuuds Vaibhav Other [employer] Other Start: 83-99-3854Rchsdo outpatient visit 25 minutes William StevensSandra NephrologyStart: 12-19-2021 End: 30-59-3591kyuxxehvhhQJZJUTQ D KATKOFacility:L7Wqivg: 12-04-2021 End: 19-60-1236Nqnemsuefg and management of inpatientDO [employer] Work Phone: [facility]-[address] [place] [facility] Start: 12-03-2021 End: 93-34-0671fgomgsraxuLQ UNIQUE Sher SMITHFacility:H6Goajj: 07-04-2017 End: 99-20-6192WrvuchmckbBPKIHWG PHYSICIANFacility:[facility]ENTERtart: 05-02-2017 End: 23-04-4574KvjbdndrrbQZDXCMF PHYSICIANFacility:[facility] Procedures DateProcedureProcedure DetailPerforming ClinicianStart: 19-84-4004Gesevgow screenJennifer RohrbacherComment on above:Order Comment: Transfuse now? Y Number of units to transfuse now? 1 Transfuse now? Y Number of units to transfuse now? 1Result Comment: PERFORMED BY: [facility] [address] [place] [address] PATHOLOGIST GRAIN DRIER DENILSON COSTA M.D.Start: 51-62-6838EJE Sera Ruth REGISTERED CLIENT ASSOCIATE Work Phone: Start: 02-74-5167Ssiem chest X-rayDO [employer] Work Phone: Start: 35-59-2764GM of abdomen and pelvis without contrastDO [employer] Work Phone: Start: 50-84-3314Eudaceekwixwdto of bilateral kidneys DO [employer] Work Phone: Start: 79-18-3713IG of chest without contrastDO [employer] Work Phone: Measurement of occult blood in stool specimen using immunoassayDO [employer] Work Phone: Urine cultureDO [employer] Work Phone: Plan of Treatment DateCare ActivityDetailAuthorStart: 36-30-4484Njkbs BMI ScreeningAdult BMI ScreeningAdena [facility]ike Medical Center SystemStart: 52-77-4431Kquzldcnz vaccinationInfluenza VaccineAdena Pike Medical Center SystemStart: 07-17-2024 End: 91-42-6473Ddgmwuo encounter rblhxenov69/09/2025 2:30 PM EDT Office Visit [facility] [address] [place] [address] [address] [place] [address] Rosalinda Nathan, DO [address] [facility] [place] [address] [facility] Centertart: 34-04-0811Mlzeb cultureOhio State East Hospital Start: 52-62-6689Rofhcxwo identified in Urine by CultureUrine CultureUK Healthcaretart: 59-40-8442Ayzqrlj referralScci Hospital [facility] Work Phone: Start: 46-46-8051Crcyoidas vaccinationInfluenza VaccineWakeMed North Hospitaltart: 26-33-3857Pxnfzvb [facility] Work Phone: Start: 95-58-6884IdtbjbfdeL[facility] Hospital Work Phone: Start: 98-75-1871Urouorev to urologistSheltering Arms Hospital [facility]tr Work Phone: Start: 82-80-1308Dhhxjvsz to cardiologistSheltering Arms Hospital [facility]tr Work Phone: Start: 24-68-8749Llitobon to bead machine operator [facility] Work Phone: Start: 88-14-5089Rmbljszshxdaui of prophylactic treatmentLima City Hospital Work Phone: Start: 04-09-1763Vaosvvic acid measurementLima City Hospital Work Phone: Start: 75-24-4169Whhxguwy to nephrologistSheltering Arms Hospital [facility]tr Work Phone: Start: 70-35-0075Cdgddjlc to Social ServicesSheltering Arms [facility]tr Work Phone: Start: 05-44-3459Xuqqufhy admissionSheltering Arms Hospital Ctr Work Phone: Start: 88-18-5148Slphtyaouyrojt of varicella zoster vaccineZoster (Shingles) Vaccine (1 of 2)[facility] SystemStart: 43-56-4211Jebhddopg for malignant neoplasm of cervixPap SmearProSelect Medical Specialty [facility] SystemStart: 92-70-4261OOnZ,Tdap and Td Vaccines (1 - Tdap)DTaP,Tdap and Td Vaccines (1 - Tdap)[facility] SystemStart: 41-16-7625Yidge BMI Screening Adult BMI ScreeningAdena Pike Medical Center SystemStart: 36-43-6003Hhrcsxuhei Screening Depression ScreeningAdena Pike Medical Center SystemStart: 20-89-0933Zumvppz Screening Tobacco ScreeningSt. Rita's HospitalBlood chemistrySheltering Arms Hospital Ctr Work Phone: Comprehensive metabolic 2000 panel - Serum or Plasma [facility] HospitalMG Breast - bilateral DiagnosticOhio State East HospitalPatient EducationHigh Blood Pressure [facility] Work Phone: Patient referralSheltering Arms Hospital [facility]tr Work Phone: Phosphatidylethanol [Mass/volume] in [facility] Work Phone: Thiamine [Moles/volume] in [facility] Work Phone: US Breast - [facility] Payers DatePayer CategoryPayerPolicy [id number]-pay2024MedicaidAMERIHEALTH [place] MEDICAID Member Subscriber Plan / Payer (Effective 2023-Present) Name: Orestes Alvares Relation to Subscriber: Self Name: Orestes Alvares Payer ID: Not on file Group ID: Not on file Type: Not on file Address: [address] [place] [id number] [id number] [place] [id number] [id number] 2..1.919184.3.57[id number] 2..1.937486.3.57[id number] 2..1.165685.3.57[id number] 2..1.796493.3.57[id number] 2..1.857423.3.57[id number] 2.16.840.1.878196.3.57[id number] 2.16.840.1.186587.3.57[id number] 2.16.840.1.055913.3.57[id number] 2.16.840.1.515270.3.57[id number] 2.16.840.1.318312.3.57[id number] 2.16.840.1.109282.3.57[id number] 1wxtlreq-[id number] 2.16.840.1.4[id number] 2.16.840.1.256012.3.579.2.531 [id number] 2.16.840.1.023679.3.579.2.531 Social History DateTypeDetailFacilityStart: 12-08-2021 End: 01-14-1576Hagiktw smoking status NHISSmoker (finding)[facility] Healthcaretart: 85-33-9434Zhc Assigned At BirthFeGeorgetown Behavioral Hospitaltart: 78-50-8076Cdm Assigned At [facility] CenterNouniversity of [place] [facility] [employer] Other Start: 11-13-2014 End: 29-33-6925AwsZgvvnh (finding)[facility] HospitalTobacco smoking status NHISTobacco smoking consumption unknownProMedica Health System Start: 14-46-0249Cjhyepz of Social functionProMedica Health SystemChildcare UnknownProMedica Health SystemStart: 17-19-2750Hqo assigned at birthNot on file [facility] Goals DatePatient GoalDesired Activity/StatePersonal health goalComment on above: Evaluation of progress towards goal: Progress towards discharge Functional Status OavnFpgiiomgmnHgxmivBcttzrom32-88-7928Bnbkamhlge statusPatient is Progressing Toward [facility] Work Phone: Mental Status WtxkMgnyaetqnhMqjayiBgzeioyb97-77-8010Icoxnapsl functionCognitive Status Patient at [facility] Work Phone: Clinical Notes 12-04-2021 to 09-09-2024 Note Date & UnroQkwlGvwflvqi96-30-9498 Telephone encounter Note* Telephone Encounter - Jerardo Ruth NP - 09/09/2024 3:28 PM EDT Requested Prescriptions Signed Prescriptions Disp Refills HYDROcodone-acetaminophen ([place]) 5-325 MG tablet 120 tablet 0 Sig: Take 1 tablet by mouth every 6 (six) hours if needed for severe pain Authorizing Provider: JERARDO RUTH [facility] HospitalHarpquxclx11-90-6584 Miscellaneous Notes* Telephone Encounter - Jerardo Ruth NP - 09/09/2024 3:28 PM EDT Requested Prescriptions Signed Prescriptions Disp Refills HYDROcodone-acetaminophen ([place]) 5-325 MG tablet 120 tablet 0 Sig: Take 1 tablet by mouth every 6 (six) hours if needed for severe pain Authorizing Provider: JERARDO RUTH documented in this encounterRanken Jordan Pediatric Specialty HospitalZzsrmbalkh22-24-3213 Telephone encounter Note* Telephone Encounter - Jerardo Ruth NP - 08/26/2024 4:52 PM EDT Requested Prescriptions Signed Prescriptions Disp Refills LORazepam (Ativan) 0.5 MG tablet 42 tablet 0 Sig: Take 1 tablet (0.5 mg) by mouth every 8 (eight) hours if needed for anxiety for up to 14 days Authorizing Provider: JERARDO RUTH [place] [id number] Miscellaneous Notes* Telephone Encounter - Jerardo Ruth NP - 08/26/2024 4:52 PM EDT Requested Prescriptions Signed Prescriptions Disp Refills LORazepam (Ativan) 0.5 MG tablet 42 tablet 0 Sig: Take 1 tablet (0.5 mg) by mouth every 8 (eight) hours if needed for anxiety for up to 14 days Authorizing Provider: JERARDO RUTH documented in this encounterRanken Jordan Pediatric Specialty HospitalKxjjyfxtqi05-76-6922 Telephone encounter Note* Telephone Encounter - Jerardo Ruth NP - 08/16/2024 1:59 PM EDT Requested Prescriptions Signed Prescriptions Disp Refills LORazepam (Ativan) 1 MG tablet 30 tablet 0 Sig: Take 1 tablet (1 mg) by mouth Daily Give daily before HD on dialysis days Authorizing Provider: JERARDO RUTH [place] [id number] Miscellaneous Notes* Telephone Encounter - Jerardo Ruth NP - 08/16/2024 1:59 PM EDT Requested Prescriptions Signed Prescriptions Disp Refills LORazepam (Ativan) 1 MG tablet 30 tablet 0 Sig: Take 1 tablet (1 mg) by mouth Daily Give daily before HD on dialysis days Authorizing Provider: JERARDO RUTH documented in this encounterRanken Jordan Pediatric Specialty HospitalScwckaiien24-58-7344 Telephone encounter Note* Telephone Encounter - Jerardo Ruth NP - 07/26/2024 11:49 AM EDT Requested Prescriptions Signed Prescriptions Disp Refills LORazepam (Ativan) 0.5 MG tablet 28 tablet 0 Sig: Take 2 tablets (1 mg) by mouth Daily for 14 days Give daily before HD on Mon, , Mon, , Monday. Authorizing Provider: JERARDO RUTH [facility] HospitalDqpzemzvog25-64-7174 Miscellaneous Notes* Telephone Encounter - Jerardo Ruth NP - 07/26/2024 11:49 AM EDT Requested Prescriptions Signed Prescriptions Disp Refills LORazepam (Ativan) 0.5 MG tablet 28 tablet 0 Sig: Take 2 tablets (1 mg) by mouth Daily for 14 days Give daily before HD on Mon, , Mon, , Monday. Authorizing Provider: JERARDO RUTH documented in this encounterRanken Jordan Pediatric Specialty HospitalSajlfegfqu86-89-3384 History of Present illness Narrative* Quintin Forman MD - 07/09/2024 2:59 PM EDT BAL cultures collected on 07/02 growing MRSA the results were finalized after patient's discharge. Currently patient is residing at [facility], which were contacted and patient caring staff was notified. documented in this encounterSt. Rita's Hospital09-18-2024 Evaluation note* Diagnosis Onset Date Resolution Status Admit Date Alcohol abuse acuteSept2023 2:30pmBreast enlargementacuteSept2023 2:30pmBreast skin changesacuteSept2023 2:30pmFrequent fallsacute December 27, 2023 2:30pmGERD (gastroesophageal reflux disease)acuteSept2023 2:30pmHypertensionacuteSept2023 2:30pmHypomagnesemiaacute December 27, 2023 2:30pmHypothyroidacuteSept2023 2:30pmLupusacute December 27, 2023 2:30pmNoncomplianceacuteSept2023 2:30pm Paroxysmal atrial fibrillation with RVRacuteSept2023 2:30pm Rheumatoid arthritisacuteSept2023 2:30pmStress-induced cardiomyopathyacuteSept2023 2:30pmType 2 myocardial infarctionacute December 27, 2023 2:30pmWeaknessacuteSept2023 2:30pm [facility] Work Phone: 1(458) 643-785406-24-2024 Miscellaneous Notes* Telephone Encounter - Abhijit Pink CMA - 10/02/2023 9:55 AM EDT Called patient in regards to referral and we were to far of a drive. Advised patient to call referring provider to look for someone closer. documented in this encounterGrace Cottage HospitalRocketship Education06-24-2024 Telephone encounter Note* Telephone Encounter - Abhijit Pink CMA - 10/02/2023 9:55 AM EDT Called patient in regards to referral and we were to far of a drive. Advised patient to call referring provider to look for someone closer. [facility] HospitalTorrential12-06-2022 Evaluation note* Encounter Date Diagnosis Assessment Notes Treatment Notes Treatment Clinical Notes Mar, Chronic kidney disease, stage II I (moderate) (ICD-10 - N18.30) She has a longstanding CKD due to hypertension. Baseline serum creatinine is unknown. She reported that she was told to have CKD about 2 years ago. I was then returned and was around 1.6 to 1.8 mg/dLduring hospitalization. Mar,Hypertensive urgency (ICD-10 - I16.0)He has a hypertensive urgency due to medication noncompliance and alcohol withdrawal. I have advised her to go to the emergency room due to risk of the stroke, heart attack and CHF. She agrees for it. Mar,nemia of renal disease (ICD-10 - D63.1)Hemoglobin below the goal. We will check iron studies. 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 I have advised her to restrict her fluid intake to 50 ounces a day. 06 Dec, 2022Vitamin D deficiency (ICD-10 - E55.9)She has a vitamin D deficiency and currently takes oral vitamin D. Calcium are within normal limit. Mar,en hy kid w cr kid I-IV (ICD-10 - I12.9)Her blood pressure is high due to medication noncompliance. Advised to go to the emergency room. [employer] Other 09-02-2022 Discharge summary Author Hong Jewell [facility] December 10, 2021 7:47pmNote Date/TimeSept2021 1:26pm[place] [address] Discharge Summary Signed Patient: Orestes Alvares MR#: [id number] : 1965 Acct:[id number] Age/Sex: 56 / F Adm Date: 2 Loc: Room: [address] [place] [address]: Hong Jewell DO Copies to: [...] these problems may have been exacerbatedby drinking alcohola few days before she presented to the ER. At that ER she was given 2 L of IV fluids, 2 g of magnesium IV, and 1 g of calcium IV where she waited for about 24 hours before bed opened up. [facility]. Here in the hospital she did initially continue to drink alcohol that she brought in from home in awater bottle before that was discovered and removed bysecurity. She did go through a mild amount ofacute alcohol withdrawal which was managed with low [...] checked but that result is still pending atthe time of this discharge summary creation. While she was in the hospital she did go into atrial fibrillation with rapid ventricular response briefly. Cardiology did see her. She actually converted to normal sinus rhythm on her own without thehelp of medication. Because this was a one-time event probably exacerbated by alcohol withdrawal and severe electrolyte abnormalities cardiology felt that this would not be a long-term problem for her and did not recommend antiarrhythmic medication and did not recommend anticoagulation. She clearlyis a very high fall risk so anticoagulation, if indicated, would carry a massive risk. While she was monitored here in the hospital she had no further events of atrial fibrillation. She appears to have a history of supraventricular tachycardia dating back to 2014 and seems to have undergone ablation for that problem x2 at the [facility]. She had nephrology consultation. He felt that the hyponatremia was in the setting of volume depletion exacerbated by alcohol abuse, low albumin, and severe protein calorie malnutrition all may have contributed to a tubular dilution defect. With IV fluid rehydration and a supplementation of her elect rolytes her creatinine did improve. When she presented [...] % (Auto) 62.7, Lymph % (Auto) 21.7, Hubbard % (Auto) 11.2, Eos % (Auto) 3.5, Baso % (Auto) 0.9, Neut # (Auto) 3.9, Lymph # (Auto) 1.4, Hubbard # (Auto) 0.7, Eos # (Auto) 0.2, Baso # (Auto) 0.1, Nucleated RBC % (auto) 0.0 12/09/21 18:15: Hgb 8.0 L, Hct 24.2 L 12/09/21 14:48: Double Strand DNA Ab <1 12/07/21 12:45: Ur Random Albumin 69.2, U Random Total Protein 51.3, U Rxplz-9-Aausazcz (%) 3.1, U Random g-0-Snxtiwgm % 6.0, U Random b-Globulin % 13.5, [...] aware of your hospital stay and need forfollow up/Cystoscopy, the office will call you to [...] <Electronically signed by Hong Jewell DO> 12/10/211946 [facility] Work Phone: 1(602) 114-849009-02-2022 Progress note Author William Esposito [facility] December 10, 2021 11:31amNote Date/TimeSept2021 11:24[place] [address] Nephrology Progress Note Signed Patient: Orestes Alvares MR#: [id number] : 1965 Acct:[id number] Age/Sex: 56 / F Adm Date: 2 Loc: 4 Room: 6M5824-5 Type: ADM IN Attending Dr: Hong Jewell DO Copies to: ~ Date of Service: 12/10/2021 Subjective Subjective Narrative: Mrs. Alvares is a 56-year-old white female with history of COPD, smoker, alcohol abuse and hypothyroidism on levothyroxine who was transferred from [facility] on 12/04 for abnormal blood work [...] g of magnesium and 1 g of calciumbefore transfer to [facility]. Today's creatinine is slightly better 1.87 mg/dL however shecontinuesto have low sodium 125 mmol/L hence nephrology was consulted. Patient is being seen and examined in her room. She is awake and she feels muchbetter. She is on IVfluid lactated Ringer with potassium chloride 20 mill equivalent per liter at 75 cc/h. Blood pressure did improve 138/68. On admission her hemoglobin was 9.7 however it dropped down to 7.7 g/dL todaywith IV hydration. She denies any active bleeding. She has elevated MCV and MCH with borderline B12and folic acid that is currently being replaced. [...] feeling better denies any chest pain palpitation coughnausea vomit diarrhea shortness of breath. She was foundto have low magnesium and and is ordered toreceive IV magnesium 4 g. Exam Physical Exam [...] visible mass Skin: No rashes or bruises [employer]PLICATION DEVELOPER: Awake,Alert, following simple command Musculoskeletal: No joint [...] 324 Mg Tablet.) 324 mg PO Q48H [facility] Stop: 12/09/22 09:14 Last Admin: 12/09/21 09:37 [...] Tablet) 750 mg PO Q48H [facility] Stop: 12/11/21 09:01 Last Admin: 12/09/21 08:13 Dose: 750 mg Levothyroxine Sodium (Levothyroxine 50 Mcg Tablet) 50 mcg PO DAILY.0630 [facility] Stop: 12/05/22 06:29 Last Admin: 12/10/21 07:31 Dose: 50 mcg Metoprolol Succinate (Metoprolol Succinate 100 Mg Tab.Er.24h) 100 mg PO DAILY [facility] Stop: 12/04/22 17:43 Last Admin: 12/10/21 08:30 Dose: 100 mg Metoprolol Tartrate (Metoprolol Tartrate 5 Mg/5 Ml Vial) 5 mg IV-PUSH Q4H PRN PRN Reason: tachycardia Stop: 12/06/22 19:17 Nicotine (Nicotine Patch 21 Mg/24hr 1 Each Patch.Td24) 1 each TRANSDERML DAILY [facility] Stop: 12/06/22 08:59 Last Admin: 12/10/21 08:31 Dose: Not Given Omeprazole (Omeprazole 20 Mg Capsule.) 20 mg PO DAILY [facility] Stop: 12/05/22 08:59 Last Admin: 12/10/21 08:31 [...] hypomagnesemia on admission that was repleted. Hypomagnesemia possiblyrelated to alcohol abuse and PPI (3) Anemia: Assessment/Problem Details: Patient had anemia on admission 9 g/dL with a drop down to 7.7 g/dL with IV hydration. It is not clear if the patient has a bleeding. She has macrocytic anemia with elevated MCV in the setting of lowfolic acid and borderline B12 that is being repleted. Possibility of surgical varices or active bleeding cannot be excluded. (4) Alcohol abuse: Assessment/Problem Details: Patient has long history of alcohol abuse, she stated that currently cut down to two fifth/week (5) Hypocalcemia: Assessment/Problem Details: Patient has severe hypocalcemia and hypomagnesemia possibly related to alcohol abuse with decreasedoral intake. He could have vitamin D deficiency [...] signed by William Esposito MD> 12/10/21 1131 [facility] Work Phone: 1(755) 985-109009-01-2022 Progress note Author Hong Jewell [facility] December 09, 2021 4:10pmNote Date/TimeSept2021 4:10pmJ[place] [address] Hospitalist Progress Note Signed Patient: Orestes Alvares MR#: [id number] : 1965 Acct:[id number] Age/Sex: 56 / F Adm Date: 2 Loc: 4 Room: [address] [place] [address] Type: ADM IN Attending Dr: Hong Jewell DO Copies to: ~ Date of Service: 12/09/2021 Subjective Subjective Narrative: Today the patient is complaining of polyuria from Lasix. Diarrhea that she complained about a few days ago is slowing down. She is not feeling tremulous or anxious or jittery at this time. She deniesabdominal pain. She denies nausea or upset stomach. [...] 40 Mg Tablet PO 12/10/22 07:59 DAILY.8A [facility] Magnesium Sulfate 2 gm in 50 mls [...] signed by Hong Jewell DO> 12/09/21 1610 [facility] Work Phone: 1(511) 205-798609-01-2022 Progress note Author William Esposito [facility] December 09, 2021 10:58amNote Date/TimeSept2021 10:58am[place] [address] Nephrology Progress Note Signed Patient: Orestes Alvares MR#: [id number] : 1965 Acct:[id number] Age/Sex: 56 / F Adm Date: 2 Loc: Room: [address] [place] [address] Type: ADM IN Attending Dr: Hong Jewell DO Copies to: ~ Date of Service: 12/09/2021 Subjective Subjective Narrative: Mrs. Alvares is a 56-year-old white female with history of COPD, smoker, alcohol abuse and hypothyroidism on levothyroxine who was transferred from [facility] on 12/04 for abnormal blood work [...] g of magnesium and 1 g of calciumbefore transfer to [facility]. Today's creatinine is slightly better 1.87 mg/dL however shecontinuesto have low sodium 125 mmol/L hence nephrology was consulted. Patient is being seen and examined in her room. She is awake and she feels muchbetter. She is on IVfluid lactated Ringer with potassium chloride 20 mill equivalent per liter at 75 cc/h. Blood pressure did improve 138/68. On admission her hemoglobin was 9.7 however it dropped down to 7.7 g/dL todaywith IV hydration. She denies any active bleeding. She has elevated MCV and MCH with borderline B12and folic acid that is currently being replaced. [...] visible mass Skin: No rashes or bruises [employer] DEVELOPER: Awake,Alert, following simple command Musculoskeletal: No joint [...] Tablet) 500 mg PO BID.WITH.BFAST.LUNCH [facility] Stop: 12/05/22 07:59 Last Admin: 12/09/21 08:25 Dose: 500 mg Calcium Carbonate (Calcium Carbonate 500 Mg Tablet) 1,000 mg PO BID [facility] Stop: 12/06/22 09:29 Last Admin: 12/09/21 08:13 [...] Tablet) 40 mg PO DAILY.8A [facility] Stop: 12/10/22 07:59 Magnesium Sulfate (Magnesium Sulf 2gm-*Swfi*) 2 gm in 50 mls @ 25 mls/hr IV DAILY PRN PRN Reason: Magnesium Level < 1.5 Stop: 12/04/22 10:15 Folic Acid 1 mg/ Dextrose 50.2 mls @ 100.4 mls/hr IV DAILY [facility] Stop: 12/04/22 13:59 Last Admin: 12/09/21 09:37 [...] 50 Mcg Tablet) 50 mcg PO DAILY.06 [facility] Stop: 12/05/22 06:29 Last Admin: 12/09/21 05:30 Dose: 50 mcg Metoprolol Succinate (Metoprolol Succinate 100 Mg Tab.Er.24h) 100 mg PO DAILY [facility] Stop: 12/04/22 17:43 Last Admin: 12/09/21 08:14 Dose: 100 mg Metoprolol Tartrate (Metoprolol Tartrate 5 Mg/5 Ml Vial) 5 mg IV-PUSH Q4H PRN PRN Reason: tachycardia Stop: 12/06/22 19:17 Nicotine (Nicotine Patch 21 Mg/24hr 1 Each Patch.Td24) 1 each TRANSDERML DAILY [facility] Stop: 12/06/22 08:59 Last Admin: 12/09/21 08:15 Dose: Not Given Omeprazole (Omeprazole 20 Mg Capsule.Dr) 20 mg PO DAILY [facility] Stop: 12/05/22 08:59 Last Admin: 12/09/21 08:14 Dose: 20 mg Potassium Chloride (Potassium Chloride Er 20 Meq Tab.Er.Prt) 20 meq PO DAILY PRN PRN Reason: Hypokalemia Stop: 12/04/22 10:15 Potassium Chloride (Potassium Chloride Er 20 Meq Tab.Er.Prt) 40 meq PO DAILY PRN PRN Reason: Hypokalemia Stop: 12/04/22 10:15 Sodium Bicarbonate (Sodium Bicarbonate 650 Mg Tablet) 650 mg PO TID [facility] Stop: 12/07/22 13:59 Last Admin: 12/09/21 08:14 [...] Unique Enciso M.D.12/08/2021 5:49 PM Dictation Location: [place] [address] Any impression(s) listed above is documentation that [...] hypomagnesemia on admission that was repleted. Hypomagnesemia possiblyrelated to alcohol abuse and decreased oral intake (3) Anemia: Assessment/Problem Details: Patient had anemia on admission 9 g/dL with a drop down to 7.7 g/dL with IV hydration. It is not clear if the patient has a bleeding. She has macrocytic anemia with elevated MCV in the setting of lowfolic acid and borderline B12 that is being repleted. Possibility of surgical varices or active bleeding cannot be excluded. (4) Alcohol abuse: Assessment/Problem Details: Patient has long history of alcohol abuse, she stated that currently cut down to two fifth/week (5) Hypocalcemia: Assessment/Problem Details: Patient has severe hypocalcemia and hypomagnesemia possibly related to alcohol abuse with decreasedoral intake. He could have vitamin D deficiency [...] By: <Electronically signed by William Esposito MD> 12/09/211057 [facility] Work Phone: 1(317) 484-914608-31-2022 Progress note Author Claude Castellanos [facility] December 08, 2021 6:59pmNote Date/TimeAugust 2021 6:59pm[place] [address] Hospitalist Progress Note Signed Patient: Orestes Alvares MR#: [id number] : 1965 Acct:[id number] Age/Sex: 56 / F Adm Date: 2 Loc: 4P Room: 2S9169-7 Type: ADM IN Attending Dr: Claude Castellanos [...] By: <Electronically signed by Claude Castellanos MD> 12/08/21 [facility] Work Phone: 1(534) 342-295708-31-2022 Consult note Author Luis Sams [facility] December 08, 2021 3:55pmNote Date/TimeAugust 2021 3:55pmJ[place] [address] Urology Consult Note Signed Patient: Orestes Alvares MR#: [id number] : 1965 Acct:[id number] Age/Sex: 56 / F Adm Date: 2 Loc: 4 Room: [address] [place] [address] Type: ADM IN Attending Dr: Claude Castellanos MD Copies to: DO Claude Rose MD Patrick R Waters, MD~ History of Present Illness Consult Details Consult Date: 12/08/2021 Requesting Provider: Claude Castellanos MD HPI: This lady was admitted to the hospital after [facility] dueto low sodium, calcium and magnesium and acute renal injury. Her admission creatinine was 2.7. With conservative management her renal function has significantly improved with the current creatinine of 1.7. She did get arenal ultrasound which showed very minor right-sided hydronephrosis [...] % (Auto) 55.8, Lymph % (Auto) 27.7, Hubbard % (Auto) 13.1, Eos % (Auto) 2.7, Baso % (Auto) 0.7, Neut # (Auto) 3.1, Lymph # (Auto) 1.6, Hubbard # (Auto) 0.7, Eos # (Auto) 0.2, [...] % (Auto) 83.6, Lymph % (Auto) 7.8, Hubbard % (Auto) 8.3, Eos % (Auto) 0.1, Baso % (Auto) 0.2, Neut # (Auto) 6.2, Lymph # (Auto) 0.6 L, Hubbard # (Auto) 0.6, Eos # (Auto) 0.0, Baso # (Auto) 0.0, Nucleated RBC % (auto) 0.1 12/06/21 19:36: Troponin I High Sens 8 12/06/21 19:36: PHA Creatinine Clear 34.32, Sodium 126 L, Potassium 5.5 H, Chloride 100, Carbon Dioxide 16.7 L, Anion Gap 14.8, BUN 26 H, Creatinine 1.82 H, Est GFR ( Amer) 35, Est GFR (Non-AfAmer) 29, Glucose 140 H, Calcium 7.0 L, [...] find any evidence of a UA on thechart. For now, we will have her get a noncontrast CT scan of the abdomen and pelvis tomake sure she does not have any obstructive phenomenon within the right ureter. Presuming she does not, a conservative approach would be warranted at this time. Code(s): N13.30 - Unspecified hydronephrosis (2) Acute kidney injury: Plan: Her acute kidney injury is steadily resolving with conservative management. Heradmission creatininewas 2.7 and today's creatinine is 1.7. She [...] the chart, her ultrasound and talking with thepatient. Thank you for letting me take part in her care. Documented By: Luis Sams MD 12/08/21 1546 Signed By: <Electronically signed by MD Luis Sams> 12/08/21 1557 [facility] Work Phone: 1(501) 173-982608-31-2022 Progress note Author William Esposito [facility] December 08, 2021 11:01amNote Date/TimeAugust 2021 10:55[place] [address] Nephrology Progress Note Signed Patient: Orestes Alvares MR#: [id number] : 1965 Acct:[id number] Age/Sex: 56 / F Adm Date: 2 Loc: Room: [address] [place] [address] Type: ADM IN Attending Dr: Claude Castellanos MD Copies to: ~ Date of Service: 12/08/2021 Subjective Subjective Narrative: Mrs. Alvares is a 56-year-old white female with history of COPD, smoker, alcohol abuse and hypothyroidism on levothyroxine who was transferred from [facility] on 12/04 for abnormal blood work [...] g of magnesium and 1 g of calciumbefore transfer to [facility]. Today's creatinine is slightly better 1.87 mg/dL howevershe continuesto have low sodium 125 mmol/L hence nephrology was consulted. Patient is being seen and examined in her room. She is awake and she feels muchbetter. She is on IVfluid lactated Ringer with potassium chloride 20 mill equivalent per liter at 75 cc/h. Blood pressure did improve 138/68. On admission her hemoglobin was 9.7 however it dropped down to 7.7 g/dL todaywith IV hydration. She denies any active bleeding. She has elevated MCV and MCH with borderline B12and folic acid that is currently being replaced. [...] visible mass Skin: No rashes or bruises [employer]ELOPER: Awake,Alert, following simple command Musculoskeletal: No joint [...] Tablet) 500 mg PO BID.WITH.BFAST.LUNCH [facility] Stop: 12/05/22 07:59 Last Admin: 12/08/21 08:29 Dose: 500 mg Calcium Carbonate (Calcium Carbonate 500 Mg Tablet) 1,000 mg PO BID [facility] Stop: 12/06/22 09:29 Last Admin: 12/08/21 08:29 [...] @ 100.4 mls/hr IV DAILY [facility] Stop: 12/04/22 13:59 Last Admin: 12/08/21 09:44 Dose: 100 mls/hr Thiamine HCl 200 mg/ Sodium (Chloride) 102 mls @ 204 mls/hr IV TID [facility] Stop: 12/04/22 21:59 Last Infusion: 12/08/21 08:59 Dose: Infused Levofloxacin (Levofloxacin 750 Mg Tablet) 750 mg PO Q48H [facility] Levothyroxine Sodium (Levothyroxine 50 Mcg Tablet) 50 mcg PO DAILY.0630 [facility] Stop: 12/05/22 06:29 Last Admin: 12/08/21 05:51 [...] Capsule.Dr) 20 mg PO DAILY [facility] Stop: 12/05/22 08:59 Last Admin: 12/08/21 08:28 Dose: 20 mg Potassium Chloride (Potassium Chloride Er 20 Meq Tab.Er.Prt) 20 meq PO DAILY PRN PRN Reason: Hypokalemia Stop: 12/04/22 10:15 Potassium Chloride (Potassium Chloride Er 20 Meq Tab.Er.Prt) 40 meq PO DAILY PRN PRN Reason: Hypokalemia Stop: 12/04/22 10:15 Sodium Bicarbonate (Sodium Bicarbonate 650 Mg Tablet) 650 mg PO TID [facility] Stop: 12/07/22 13:59 Last Admin: 12/08/21 08:28 Dose: 650 mg Sodium Chloride (Sodium Chloride 0.9 % 10 Ml Syringe) 0 ml IV-PUSH PRN PRN PRN Reason: Flush Stop: 12/04/22 10:15 Last Admin: 12/05/21 22:07 Dose: 10 ml Vitamin D (Cholecalciferol 10 Mcg (400 Units) Tablet) 20 mcg PO BID.WITH.MEALS [facility] Stop: 12/07/22 07:59 Last Admin: 12/08/21 08:28 [...] Unique Enciso M.D.12/07/2021 4:27 PM Dictation Location: [place] [address] Any impression(s) listed above is documentation that [...] hypomagnesemia on admission that was repleted. Hypomagnesemia possiblyrelated to alcohol abuse and decreased oral intake (3) Anemia: Assessment/Problem Details: Patient had anemia on admission 9 g/dL with a drop down to 7.7 g/dL with IV hydration. It is not clear if the patient has a bleeding. She has macrocytic anemia with elevated MCV in the setting of lowfolic acid and borderline B12 that is being repleted. Possibility of surgical varices or active bleeding cannot be excluded. (4) Alcohol abuse: Assessment/Problem Details: Patient has long history of alcohol abuse, she stated that currently cut down to two fifth/week (5) Hypocalcemia: Assessment/Problem Details: Patient has severe hypocalcemia and hypomagnesemia possibly related to alcohol abuse with decreasedoral intake. He could have vitamin D deficiency [...] signed by William Esposito MD> 12/08/21 1101 [facility] Work Phone: 1(375) 373-772208-30-2022 Progress note Author Claude Castellanos [facility] December 07, 2021 8:00pmNote Date/TimeAugust 2021 8:00pm[place] [address] Hospitalist Progress Note Signed Patient: Orestes Alvares MR#: [id number] : 1965 Acct:[id number] Age/Sex: 56 / F Adm Date: 2 Loc: Room: [address] [place] [address] Type: ADM IN Attending Dr: Claude Castellanos [...] <Electronically signed by Claude Castellanos MD> 12/07/211999 [facility] Work Phone: [phone]) 310-709208-30-2022 Consult note Author Kylah Verdugo [facility] December 07, 2021 4:57pmNote Date/TimeAugust 2021 4:51pmJ[place] [address] Cardiology Consult Note Signed Patient: Orestes Alvares MR#: [id number] : 1965 Acct:[id number] Age/Sex: 56 / F Adm Date: 2 Loc: Room: [address] [place] [address] Type: ADM IN Attending Dr: Claude Castellanos MD Copies to: DO Claude Rose MD Hassan M Ibrahim, MD, FACC~ Cardiology HPI History of Present Illness Consult Date: 12/07/21 Reason for Consult: Paroxysmal atrial fibrillation HPI: Ms. Alvares is a 56 year old female who is being seen at the request of the hospitalist because ofparoxysmal atrial fibrillation. Patient presented to [place] emergency department with syncopal event believed to [...] has had multiple falls mostly due to alcoholintoxication. She did not have any major injuries. She has no underlying cardiac disease and no previous strokes or bleeding problems. The patient is coherent at the present time and denies any complaints. While she was in [place] emergency department her high-sensitivitytroponin was elevated at 10 2. She was found to have anemia with a hemoglobin just under 10 g/dL. The patient has no known history of blood loss or liver cirrhosis. She has no underlying pulmonary disease. Review of Systems Review of Systems Review of systems: Patient admits for frequent near syncope and falls mostly when she is intoxicated with alcohol. Shehas had no strokes or TIAs and denies [...] 155/72 H 99 Room Air 12/07/21 12:00 08/30/22 16:00 12/07/21 16:00 12/07/21 16:00 12/07/21 12:00 [...] Lymph # (Auto) 0.6 L (1.00-4.8) x10E3/uL Hubbard # (Auto) 0.6 (0.0-0.8) x10E3/uL Eos # [...] 50 ml @ 100.4 mls/hr IV DAILY [facility] Rx#:[id number] Thiamine 200 mg In Sodium 102 / 102 Chloride 0.9% 100 ml 100 ml @ 204 mls/hr IV TID [facility] Rx#: [id number] Oral 150 / 350 200 / 350 [...] failure, unspecified Documented By: Kylah Verdugo MD, [facility] 2 1649 Signed By: <Electronically signed by [facility] Kylah Verdugo> 12/07/217 [facility] Work Phone: 1([phone]) 925-706008-30-2022 Progress note Author William Esposito [facility] December 07, 2021 10:38amNote Date/TimeAugust 2021 10:34[place] [address] Nephrology Progress Note Signed Patient: Orestes Alvares MR#: [id number] : 1965 Acct:[id number] Age/Sex: 56 / F Adm Date: 2 Loc: Room: [address] [place] [address] Type: ADM IN Attending Dr: Claude Castellanos MD Copies to: ~ Date of Service: 12/07/2021 Subjective Subjective Narrative: Mrs. Alvares is a 56-year-old white female with history of COPD, smoker, alcohol abuse and hypothyroidism on levothyroxine who was transferred from [facility] on 12/04 for abnormal blood work [...] g of magnesium and 1 g of calciumbefore transfer to [facility]. Today's creatinine is slightly better 1.87 mg/dL howevershe continuesto have low sodium 125 mmol/L hence nephrology was consulted. Patient is being seen and examined in her room. She is awake and she feels muchbetter. She is on IVfluid lactated Ringer with potassium chloride 20 mill equivalent per liter at 75 cc/h. Blood pressure did improve 138/68. On admission her hemoglobin was 9.7 however it dropped down to 7.7 g/dL todaywith IV hydration. She denies any active bleeding. She has elevated MCV and MCH with borderline B12and folic acid that is currently being replaced. [...] event noted. She was found to be oversedatedand was given flumazenil with improvement in mental [...] visible mass Skin: No rashes or bruises [employer]ELOPER: Awake,Alert, following simple command Musculoskeletal: No joint swelling or limitation of movement Psychiatric: Cooperative, normal mood and affect abdominal hysterectomy Objective Intake and Output I&O: Intake & Output 08/12/05/21 12/06/21 12/07/21 23:59 23:59 23:59 23:59 Intake Total 1949.2 [...] Tablet) 500 mg PO BID.WITH.BFAST.LUNCH [facility] Stop: 12/05/22 07:59 Last Admin: 12/07/21 08:12 Dose: 500 mg Calcium Carbonate (Calcium Carbonate 500 Mg Tablet) 1,000 mg PO BID [facility] Stop: 12/06/22 09:29 Last Admin: 12/07/21 08:11 [...] @ 100.4 mls/hr IV DAILY [facility] Stop: 12/04/22 13:59 Last Infusion: 12/07/21 09:30 Dose: Infused Thiamine HCl 200 mg/ Sodium (Chloride) 102 mls @ 204 mls/hr IV TID [facility] Stop: 12/04/22 21:59 Last Infusion: 12/07/21 09:17 Dose: Infused Levofloxacin (Levaquin) 750 mg in 150 mls @ 100 mls/hr IV Q48H [facility] Last Admin: 12/07/21 09:31 Dose: 100 mls/hr Sodium Bicarbonate 150 meq/ (Dextrose) 1,150 mls @ 100 mls/hr IV .[id number] [facility] Stop: 12/06/22 19:29 Last Admin: 12/06/21 20:18 Dose: 100 mls/hr Levothyroxine Sodium (Levothyroxine 50 Mcg Tablet) 50 mcg PO DAILY.0630 [facility] Stop: 12/05/22 06:29 Last Admin: 12/07/21 05:42 [...] Rossi Salinas M.D.12/06/2021 6:01 PM Dictation Location: [place] [address] Any impression(s) listed above is documentation that [...] hypomagnesemia on admission that was repleted. Hypomagnesemia possiblyrelated to alcohol abuse and decreased oral intake (3) Anemia: Assessment/Problem Details: Patient had anemia on admission 9 g/dL with a drop down to 7.7 g/dL with IV hydration. It is not clear if the patient has a bleeding. She has macrocytic anemia with elevated MCV in the setting of lowfolic acid and borderline B12 that is being repleted. Possibility of surgical varices or active bleeding cannot be excluded. (4) Alcohol abuse: Assessment/Problem Details: Patient has long history of alcohol abuse, she stated that currently cut down to two fifth/week (5) Hypocalcemia: Assessment/Problem Details: Patient has severe hypocalcemia and hypomagnesemia possibly related to alcohol abuse with decreasedoral intake. He could have vitamin D deficiency [...] signed by William Esposito MD> 12/07/21 1038 [facility] Work Phone: [phone]) [phone] Progress note Author Hong Jewell [facility] December 06, 2021 7:32pmNote Date/TimeAugust 2021 7:32pmJ[place] [address] Hospitalist Progress Note Signed Patient: Orestes Alvares MR#: [id number] : 1965 Acct:[id number] Age/Sex: 56 / F Adm Date: 2 Loc: Room: 9T0765-1 Type: ADM IN Attending Dr: Hong Jewell [...] known that when the patient first came [facility] she was concerned about missing her blood [...] position. When this happened she was about 75%of the way completed on her IV iron [...] recent or remote blood products in the stoolas it is very wal[place] and yellow. There [...] that she reported were completed at the [facility]. Given her vasovagal syncope in the [...] 11:01 Dextrose IV 12/06/21 20:59 100 mls/hr .[id number] [facility] Administration Sodium Chloride 1,000 mls @ [...] deficiency, iron deficiency, but GI blood loss cannot be ruled out. Severe longstanding alcohol abuse. [...] <Electronically signed by Hong Jewell DO> 12/06/211931 [facility] Work Phone: [phone]) [phone] Consult note Author Rehan Russ [facility] December 06, 2021 5:46pmNote Date/TimeAugust 2021 5:[address] [address] Gastroenterology Consult Note Signed Patient: Orestes Alvares MR#: [id number] : 1965 Acct:[id number] Age/Sex: 56 / F Adm Date: 2 Loc: Room: [address] [place] [address] Type: ADM IN Attending Dr: Hong Jewell [...] recorded. The patient was transferred to the [place] ER and admitted the day before yesterday [...] EGD and colonoscopy several years ago in [place]. She was told that she had a gastric polyp and a colon polyp. She has not had this rechecked. Hemoglobin did drop to 7.7 but is now 8.7. Stool for occult blood is negative. Blood counts show macrocytic indices with normal ferritin. Review of systems includes hypertension, hypothyroidism, history of NV, history of SVT. cc:: CC: Hong Jewell [...] % (Auto) 62.7 Lymph % (Auto) 19.7 Hubbard % (Auto) 14.4 Eos % (Auto) 2.3 Baso % (Auto) 0.9 Neut # (Auto) 4.0 Lymph # (Auto) 1.3 Hubbard # (Auto) 0.9 H Eos # (Auto) [...] MPV Neut % (Auto) Lymph % (Auto) Hubbard % (Auto) Eos % (Auto) Baso % (Auto) Neut # (Auto) Lymph # (Auto) Hubbard # (Auto) Eos # (Auto) Baso # [...] <Electronically signed by MD Rehan Russ> 12/06/211745 [facility] Work Phone: [phone]) 544-945808-29-2022 Progress note Author William Esposito [facility] December 06, 2021 1:19pmNote Date/TimeAugusdalton 2021 1:19pmJ[place] [address] Nephrology Progress Note Signed Patient: Orestes Alvares MR#: [id number] : 1965 Acct:[id number] Age/Sex: 56 / F Adm Date: 2 Loc: Room: [address] [place] [address] Type: ADM IN Attending Dr: Hong Jewell DO Copies to: ~ Date of Service: 12/06/2021 Subjective Subjective Narrative: Mrs. Alvares is a 56-year-old white female with history of COPD, smoker, alcohol abuse and hypothyroidism on levothyroxine who was transferred from [facility] on 12/04 for abnormal blood work [...] g of magnesium and 1 g of calciumbefore transfer to [facility]. Today's creatinine is slightly better 1.87 mg/dL however shecontinuesto have low sodium 125 mmol/L hence nephrology was consulted. Patient is being seen and examined in her room. She is awake and she feels muchbetter. She is on IVfluid lactated Ringer with potassium chloride 20 mill equivalent per liter at 75 cc/h. Blood pressure did improve 138/68. On admission her hemoglobin was 9.7 however it dropped down to 7.7 g/dL todaywith IV hydration. She denies any active bleeding. She has elevated MCV and MCH with borderline B12and folic acid that is currently being replaced. [...] specialist but she opted against it. Her echoca rdiogramshowed normal EF and mild pulmonary hypertension. Exam [...] visible mass Skin: No rashes or bruises [employer] DEVELOPER: Awake,Alert, following simple command Musculoskeletal: No joint [...] @ 100.4 mls/hr IV DAILY [facility] Stop: 12/04/22 13:59 Last Admin: 12/06/21 11:00 Dose: 100 mls/hr Thiamine HCl 200 mg/ Sodium (Chloride) 102 mls @ 204 mls/hr IV TID [facility] Stop: 12/04/22 21:59 Last Admin: 12/05/21 22:05 Dose: 204 mls/hr Levofloxacin (Levaquin) 750 mg in 150 mls @ 100 mls/hr IV Q48H [facility] Last Admin: 12/05/21 09:17 Dose: 100 mls/hr Ferric Sodium Gluconate Complex 250 mg/ Sodium Chloride 270 mls @ 135 mls/hr IVQAM [facility] Stop: 12/09/21 08:59 Last Admin: 12/06/21 11:01 Dose: 135 mls/hr Sodium Bicarbonate 150 meq/ (Dextrose) 1,150 mls @ 100 mls/hr IV .[id number] [facility] Stop: 12/06/21 20:59 Last Admin: 12/06/21 11:01 Dose: 100 mls/hr Levothyroxine Sodium (Levothyroxine 50 Mcg Tablet) 50 mcg PO DAILY.0630 [facility] Stop: 12/05/22 06:29 Last Admin: 12/06/21 05:30 [...] Tab.Er.24h) 100 mg PO DAILY [facility] Stop: 12/04/22 17:43 Last Admin: 12/06/21 11:12 Dose: Not Given Nicotine (Nicotine Patch 21 Mg/24hr 1 Each Patch.Td24) 1 each TRANSDERML DAILY [facility] Stop: 12/06/22 08:59 Omeprazole (Omeprazole 20 Mg [...] into a diagnostic report(s) for Orestes Palacios Giorgio. I have reviewed the report(s) and am [...] hypomagnesemia on admission that was repleted. Hypomagnesemia possiblyrelated to alcohol abuse and decreased oral intake [...] with elevated MCV in the setting of lowfolic acid and borderline B12 thatis being repleted. Possibility of surgical varices or active bleeding cannot beexcluded. (5) Alcohol abuse: Assessment/Problem Details: Patient has long history of alcohol abuse, she stated that currently cut down to two fifth/week (6) Hypocalcemia: Assessment/Problem Details: Patient has severe hypocalcemia and hypomagnesemia possibly related to alcohol abuse with decreasedoral intake. He could have vitamin D deficiency [...] signed by William Esposito MD> 12/06/21 1319 [facility] Work Phone: [phone] Progress note Author Hong Jewell [facility] December 05, 2021 5:23pmNote Date/TimeAugust 2021 5:09pmJ[place] [address] Hospitalist Progress Note Signed with Addenda Patient: Orestes Alvares MR#: [id number] : 1965 Acct:[id number] Age/Sex: 56 / F Adm Date: 2 Loc: 3T Room: [address] [place] [address] Type: ADM IN Attending Dr: Hong Jewell DO Copies to: ~ ADDENDUM1 Urinalysis is suggestive of urinary tract infection. Originally the urinalysis was obtained to evaluate for problems such as proteinuria, and a urine drug screen was requested to evaluate for problems suchas amphetamine or cocaine. She was positive forbenzodiazepines but she got theRestoril last night to sleep so that explains that positivity. Sent the urinalysis is suggestive of urinary tract infection will treat with Levaquin IV. She listsallergies from Keflex which apparently caused nausea. Addendum [...] lot of tea and pop on her bedsidetable. I asked her to consume less empty [...] Lactated Ringer's IV 12/04/22 14:14 75 mls/hr .[id number] [facility] Administration Folic Acid 1 mg/ Dextrose [...] deficiency, iron deficiency, but GI blood loss cannot be ruled out. Severe longstanding alcohol abuse. [...] or symptoms. Documented By: Hong Jewell DO 1706 Signed By: <Electronically signed by Hong Jewell DO> 12/05/21 172 [facility] Work Phone: [phone] Consult note Author Nilesh Oakley [facility] December 05, 2021 2:55pmNote Date/TimeAugust 2021 2:55pmJ[place] [address] Nephrology Consult Note Signed Patient: Orestes Alvares MR#: [id number] : 1965 Acct:[id number] Age/Sex: 56 / F Adm Date: 2 Loc: Room: [address] [place] [address] Type: ADM IN Attending Dr: Hong Jewell [...] hypothyroidism on levothyroxine who was transferred from [facility] on 12/04 for abnormal blood work [...] g of magnesium and 1 g of calciumbefore transfer to [facility]. Today's creatinine is slightly better 1.87 mg/dL howevershe continuesto have low sodium 125 mmol/L hence nephrology was consulted. Patient is being seen and examined in her room. She is awake and she feels muchbetter. She is on IVfluid lactated Ringer with potassium chloride 20 mill equivalent per liter at 75 cc/h. Blood pressure did improve 138/68. On admission her hemoglobin was 9.7 however it dropped down to 7.7 g/dL todaywith IV hydration. She denies any active bleeding. She has elevated MCV and MCH with borderline B12and folic acid that is currently being replaced. [...] more diarrhea, nausea or vomiting. She denies dizziness.Blood pressure up to 138/68 off lisinopril and [...] Tablet) 500 mg PO BID.WITH.BFAST.LUNCH [facility] Stop: 12/05/22 07:59 Last Admin: 12/05/21 11:55 Dose: 500 mg Magnesium Sulfate (Magnesium Sulf 2gm-*Swfi*) 2 gm in 50 mls @ 25 mls/hr IV DAILY PRN PRN Reason: Magnesium Level < 1.5 Stop: 12/04/22 10:15 Potassium Chloride 20 meq/ (Lactated Ringer's) 1,010 mls @ 75 mls/hr IV .[id number] [facility] Stop: 12/04/22 14:14 Last Admin: 12/05/21 01:34 Dose: 75 mls/hr Folic Acid 1 mg/ Dextrose 50.2 mls @ 100.4 mls/hr IV DAILY [facility] Stop: 12/04/22 13:59 Last Admin: 12/05/21 09:17 Dose: 100 mls/hr Thiamine HCl 200 mg/ Sodium (Chloride) 102 mls @ 204 mls/hr IV TID [facility] Stop: 12/04/22 21:59 Last Admin: 12/05/21 09:17 Dose: 204 mls/hr Levofloxacin (Levaquin) 750 mg in 150 mls @ 100 mls/hr IV Q48H [facility] Last Admin: 12/05/21 09:17 Dose: 100 mls/hr Levothyroxine Sodium (Levothyroxine 50 Mcg Tablet) 50 mcg PO DAILY.0630 [facility] Stop: 12/05/22 06:29 Last Admin: 12/05/21 06:55 Dose: Not Given Metoprolol Succinate (Metoprolol Succinate 100 Mg Tab.Er.24h) 100 mg PO DAILY [facility] Stop: 12/04/22 17:43 Last Admin: 12/05/21 09:17 Dose: 100 mg Omeprazole (Omeprazole 20 Mg Capsule.Dr) 20 mg PO DAILY [facility] Stop: 12/05/22 08:59 Last Admin: 12/05/21 09:17 [...] Cloudy A Urine pH 5.5 Ur Specific Baskin 1.013 Urine Protein 30 H Urine Glucose [...] hypomagnesemia on admission that was repleted. Hypomagnesemia possiblyrelated to alcohol abuse and decreased oral intake [...] with elevated MCV in the setting of lowfolic acid and borderline B12 that is being repleted. Possibility of surgical varices or active bleeding cannot be excluded. (5) Alcohol abuse: Assessment/Problem Details: Patient has long history of alcohol abuse, she stated that currently cut down to two fifth/week (6) Hypocalcemia: Assessment/Problem Details: Patient has severe hypocalcemia and hypomagnesemia possibly related to alcohol abuse with decreasedoral intake. He could have vitamin D deficiency [...] anemia. Will check stool for occult blood andwill need endoscopy if it is positive since [...] <Electronically signed by MD Nilesh Oakley> 12/05/21 1455 [facility] Work Phone: 1(179) 169-400108-27-2022 History and physical note Author Hong Jewell [facility] December 04, 2021 9:07pmNote Date/TimeAugust 2021 9:07pmJ[place] [address] Hospitalist H&P Signed Patient: Orestes Alvares MR#: [id number] : 1965 Acct:[id number] Age/Sex: 56 / F Adm Date: 2 Loc: Room: [address] [place] [address] Type: ADM IN Attending Dr: Hong Jewell DO Copies to: DO Hong Rose, ~ HPI DATE OF EXAMINATION: 12/04/21 CHIEF COMPLAINT: weakness, passing out, lightheadedness. HISTORY OF PRESENT ILLNESS: This is a 56-year-old woman who presented to the [place] emergency room yesterday evening with complaints of lightheadedness and that she had passed outlost consciousness. She admitted to them that it may have been related to alcohol use and she had been having nausea and vomiting and diarrhea fora day or 2. They found that her hemoglobin was low but typical for her at 9.7, sodium was low at 124, potassiumwas low 3.2, bicarb was low at 19, [...] IV fluids. She also seems of gotten 2g of magnesium and some treatment of IV calcium. She states that she was in her usual state of health until she had severe intractable nausea vomiting and diarrhea. She says I think was alcohol poisoning. She does admit that he might of been sometype of foodborne illnessbut nobody else in her family has come down with anything. The vomiting and diarrhea are gone at this time. But after that episode she could tell that she was dehydrated. Shesays that she thought that she was very dehydrated. She felt very lightheaded and then actually passed out and lost consciousness. She says that she has some degree of chronic kidney disease. She is a suboptimal historian. She says that her primary care doctor told her that she had 30% kidney function and she was supposed to come get established with a maintenance inspector in [place]. She also was supposed to see a rheumatologistbecause she has probably rheumatoid arthritis and she has had a rash on her back for many decades. She has a fullness in the supraclavicular regions on both right and the left side. She says that the [facility] told her that these were lipomas based on a CT scan. They havebeen present this way for many years and are not really changing. She does currently smoke 0.5 to 1 pack/day. At her maximum she she smoked 3 packs/day. She rolls her own cigarettes and she says that she is trying to cut down. She started smoking at the age of 17. I gave her [id number] history. In terms of alcohol use she says that she drinks two fifths which last for about a week. In the past she used to drink 1 gallon bottles of alcohol whichwould onlylast her about half a week. She does [...] except as mentioned elsewhere in the documentation. [facility] Vaccinated for COVID-19?: No Medical History (Updated [...] does not feel like lymphatic tissue or lymphnodes. This is just very soft. Lungs: Clear [...] like little tiny scabs of a variety ofdifferent ages. Psychiatric: Moderately anxious but calm. Cooperative. [...] % (Auto) 13.0 % (.) 12/04/21 11:47 Hubbard % (Auto) 13.9 % (.) 12/04/21 11:47 Eos % (Auto) 1.2 % (.) 12/04/21 11:47 Baso % (Auto) 0.4 % (.) 12/04/21 11:47 Neut # (Auto) 4.5 x10E3/uL (1.8-7.7) 12/04/21 11:47 Lymph # (Auto) 0.8 x10E3/uL (1.00-4.8) L 12/04/21 11:47 Hubbard # (Auto) 0.9 x10E3/uL (0.0-0.8) H 12/04/21 [...] <Electronically signed by Hong Jewell DO> 12/04/212106 [facility] Work Phone: Evaluation note* Diagnosis Onset Date Resolution Status Acute kidney injury acuteAlcohol abuseacuteAnemiaacuteAtrial fibrillationacuteFolic acid deficiency acuteHTN (hypertension)acuteHydronephrosisacuteHypocalcemiaacuteHypokalemiaacute HypomagnesemiaacuteHyponatremiaacuteHypothyroidacuteIron deficiencyacute Macrocytic anemiaacuteModerate protein-calorie malnutritionacuteParoxysmal atrial fibrillation with RVRacuteStress-induced cardiomyopathyacuteType 2 myocardial infarctionacuteUrethral stenosisacuteVasovagal syncopeacute [facility] Work Phone: Evaluation noteNo assessment information available [facility] Work Phone: evaluation note* Diagnosis Onset Date Resolution Status GERD (gastroesophageal reflux disease) acuteHypertensionacuteHypomagnesemiaacuteHypothyroidacuteLupusacuteParoxysmal atrial fibrillation with RVRacuteRheumatoid arthritisacuteStress-induced cardiomyopathyacuteType 2 myocardial infarctionacute [facility] Work Phone: Evaluation note* Diagnosis Onset Date Resolution Status Alcohol abuse acuteGERD (gastroesophageal reflux disease)acuteHypertensionacuteHypomagnesemia acuteHypothyroidacuteLupusacuteParoxysmal atrial fibrillation with RVRacute Rheumatoid arthritisacuteStress-induced cardiomyopathyacuteType 2 myocardial infarctionacuteAlcohol abuseacuteBreast enlargementacuteBreast skin changesacute GERD (gastroesophageal reflux disease)acuteHypertensionacuteHypomagnesemiaacute HypothyroidacuteLupusacuteParoxysmal atrial fibrillation with RVRacuteRheumatoid arthritisacuteStress-induced cardiomyopathyacuteType 2 myocardial infarction acute [facility] Work Phone: Evaluation note* Diagnosis Anxiety about treatment- [facility] Diagnosis Anxiety about treatment- [facility] Diagnosis Anxiety disorder, unspecified type- Primary [facility] Diagnosis Pain- Primary Generalized pain [facility] N[facility]ative - Reported* Type Description Date Medical History COPD Medical HistoryHYPOTHYROIDISMMedical HistoryALCOHOL ABUSEMedical HistorySMOKER Medical HistoryANEMIAMedical HistoryHYPOMAGNESEMIAMedical HistoryHYPOCALCEMIA Medical HistoryHYDRONEPHROSISSurgical HistoryC-SECTION X 2Surgical HistoryD&C X2 Surgical HistoryLUMPECTOMY ON BOTH BREASTSurgical History2 HEART ABLASIONS Hospitalization HistorySEE ABOVEHospitalization HistoryDEHYDRATION12/2021 [facility] Other Hospital Discharge instructions Additional Instructions Dietary recommendations: - Magic cup (or equivalent) twice daily with [facility] Work Phone: Hospital Discharge instructions Additional Instructions Follow-up with your primary care doctor Return to ED if develop worsening symptoms or concerns [facility]: Hospital Discharge instructionsAmbulatory Orders* Referral to Cardiology Location: None Selected * Referral to Rheumatology Location: None Selected [facility] Work Phone: Hospital Discharge instructionsAmbulatory Orders* Referral to Cardiology Location: None Selected [facility] Work Phone: InstructionsNot on filedocumented in this encounter [facility]ructionsNot on filedocumented in this encounter [facility] Summary Purpose Family History No Family History Records Found Relationship Condition Age at Onset Recorded Date/T sudhir father Diabetes mellitus Unknown Malignant neoplasm of lungUnknownHypertensionUnknownbrotherHypertensionUnknown Not SpecifiedHeart diseaseUnknowngrandparentDiabetes mellitusUnknownfamily memberMalignant neoplasm of breastUnknown Relationship Condition Age at Onset Recorded Date/T sudhir father Diabetes mellitus Unknown Malignant neoplasm of lungUnknownHypertensionUnknownbrotherHypertensionUnknown Not SpecifiedHeart diseaseUnknowngrandparentDiabetes mellitusUnknownfamily memberMalignant neoplasm of breastUnknownbrotherMalignant neoplasmUnknownfather DeceasedUnknownMalignant neoplasmUnknownfamily memberDeceasedUnknownNot SpecifiedHypertensionUnknownHistory of strokeUnknown Relationship Condition Age at Onset Recorded Date/T sudhir father Diabetes mellitus Unknown Malignant neoplasm of lungUnknownHypertensionUnknownbrotherHypertensionUnknown motherHeart diseaseUnknowngrandparentDiabetes mellitusUnknownfamily member Malignant neoplasm of breastUnknownbrotherMalignant neoplasmUnknownfather DeceasedUnknownMalignant neoplasmUnknownfamily memberDeceasedUnknownmother HypertensionUnknownHistory of strokeUnknown Advance Directives No Advanced Directives Records Found Advance Directive Response Recorded Date/ Time Advance Directives No December 03, 2021 7:41pm Advance Directive Response Recorded Date/ Time Advance Directives No December 03, 2021 6:41pm Advance Directive Response Recorded Date/ Time Advance Directives No September 27 3:28pm Advance Directive Response Recorded Date/ Time Advance Directives No September 27 2:28pm Date ActivatedDate InactivatedComments06/25/2024 2:15 PM07/03/2024 7:47 PMDate ActivatedDate InactivatedComments06/25/2024 2:07 PM06/25/2024 2:15 PMDate ActivatedDate InactivatedComments06/13/2024 8:54 PM06/25/2024 2:07 PM Chief Complaint and Reason for [...] myocardial infarction Chief Complaint Establish 3 month f/uReason for VisitAlcohol abuse GERD (gastroesophageal reflux disease) Hypertension Hypomagnesemia [...] and content) DATE CREATED AUTHOR 09/29/2017 [facility] DATE CREATED AUTHOR AUTHOR'S ORGANIZ ATION 01/07/2022 [facility] DATE CREATED AUTHOR AUTHOR'S ORGANIZ ATION 06/21/2024 [facility] DATE CREATED AUTHOR AUTHOR'S ORGANIZ ATION 09/11/2024 [facility] DATE CREATED AUTHOR AUTHOR'S ORGANIZ ATION 09/18/2024 [facility] DATE CREATED AUTHOR AUTHOR'S ORGANIZ ATION 10/23/2024 [facility] DATE CREATED AUTHOR AUTHOR'S ORGANIZ ATION 11/02/2024 [facility] DATE CREATED AUTHOR AUTHOR'S ORGANIZ ATION 12/27/2024 [facility] Care Teams (unrecognized sec tion and content) Team Status: Inactive Member Role Status Dates Segundo Rawls DO Primary Care Provider Active Hong Jewell DOAdmit Provider, Attending ProviderActiveRehan Russ MDOther ProviderActiveNilseh Oakley MDOther ProviderActiveShawnee Persaud RNOther ProviderActiveGillian Romano DOOther ProviderActiveKylah Verdugo MDOther ProviderActiveSher Frazier MDOther ProviderActive [place] Cardoso MDOther ProviderActiveSegundo Main MDOther ProviderActiveDonna K Denis Austin , APRNOther ProviderActiveEstefania Martinez MD Other ProviderActiveMohammed Willa Bach MDOther ProviderActiveNaila Kolb MDOther ProviderActiveLuis Sams MDOther ProviderActiveLowell Trejo MD Other ProviderActiveRobkeyshawn Santamaria MDOther ProviderActiveLul Austin Jr, MDOther ProviderActiveJagruti Ugalde MDOther ProviderActiveBrad Gan MDOther ProviderActive Team Status: Active Member Role Status Dates Segundo Rawls DO Primary Care Provider Active Team Status: Inactive Member Role Status Dates Segundo Rawls DO Primary Care Provider Active Caden Jarrell DOEmekalia ProviderActive Team Status: Active Member Role Status Dates Katie Velasquez APRN REGISTERED CLIENT ASSOCIATE-C Primary Care Provider Active Team Status: Inactive Member Role Status Dates Katie Velasquez APRN REGISTERED CLIENT ASSOCIATE-C Primary Care Provider, Attending Provider Active Start: September 28, 2023 End: September 28, 2023 Team Status: Inactive Member Role Status Dates Katie Velasquez APRN REGISTERED CLIENT ASSOCIATE-C Primary Care Provider, Attending Provider Active Start: December 27, 2023 End: December 27, 2023 Team Status: Inactive Member Role Status Dates Katie Velasquez APRN REGISTERED CLIENT ASSOCIATE-C Primary Care Provider, Attending Provider Active Start: February 19, 2024 End: February 19, 2024 Team Status: Active Member Role Status Dates PHYSICIAN NO FAMILY Primary Care Provider Active Team Status: Active Member Role Status Dates Katie Velasquez APRN REGISTERED CLIENT ASSOCIATE-C Primary Care Provider Active Start: April End: April 28anabell Zamorano DOAttending ProviderActiveStart: April 22, 2024 End: April 28, 2024MADINA Julieneferring ProviderActiveStart: April 22, 2024 End: April 28, 2024 Team Status: Inactive Member Role Status Dates Katie Velasquez APRN REGISTERED CLIENT ASSOCIATE-C Primary Care Provider Active Start: June 12, 2024 End: June 12, 2024Sheryl Santamaria DOAttending ProviderActiveStart: June 12, 2024 End: June 12, 2024 Team Status: Active Member Role Status Dates Katie Velasquez APRN REGISTERED CLIENT ASSOCIATE-C Primary Care Provider, Attending Provider Active Start: June 12, 2024 Team Status: Active Member Role Status Dates PHYSICIAN NO FAMILY Primary Care Provider Active Start: June 13, 2024 Orlando Julien ProviderActiveStart: June 13, 2024 Team MemberRelationshipSpecialtyStart DateEnd Date Katie Velasquez NP [address] [place] [address] PCP - GeneralFamily Kvykscsr70/8/24Team MemberRelationshipSpecialtyStart DateEnd Date Katie Velasquez NP [address] [place] [address] [facility] - [facility] Lpogbkil65/8/24Team MemberRelationshipSpecialtyStart DateEnd Date Katie Velasquez NP [address] [place] [id number] PCP - GeneralFami Zvnkpkoh58/8/24Team MemberRelationshipSpecialtyStart DateEnd Date Katie Velasquez NP [address] [place] [address] [place] [address] PCP - GeneralFamily Lboumknp54/8/24 Goals (unrecognized section and content) Goals may [...] BE BASED ON THE PRIMARY CLINICAL RECORDS. [facility]. provides no warranty or guarantee of the accuracy or completeness of information in this document.
--- OUTSIDE RECORDS SUMMARY | 2025-02-13 21:36 | XMS_ITS | Clinical Summary ---
Author Organization [facility] Address [address] [place] [address] Phone Care Team Providers Care Manager Infusion Name Role Phone Unavailable Primary Care Provider Unavailabl e Social History Tobacco UseTypesPacks/DayYears UsedDateSmoking Tobacco: Never Assessed CommentsUnknownSex and Gender InformationValueDate RecordedSex Assigned at Not on fileLegal QfiCgrwth47/26/2022 4:41 AM ESTGender IdentityNot on fileSexual OrientationNot on file Plan of Treatment Not on file
[2025-02-13 21:37] LABS: Hematocrit 30.2 % (36.0-48.0); Hemoglobin 10.5 g/dL (12.0-16.0); Immature Granulocytes Abs Auto 0.02 10^3/uL (0.00-0.03); Immature Granulocytes Pct Auto 0.4 % (0.0-0.5); Lymphocytes Absolute Auto 1.4 10^3/uL (1.2-3.8); Mean Corpuscular HGB Conc 34.8 g/dL (29.9-35.2); Mean Corpuscular Hemoglobin 31.0 pg (26.7-34.0); Mean Corpuscular Volume 89.1 fL (81.0-99.0); Platelet Count 225 10^3/uL (150-450); Red Blood Count 3.39 10^6/uL (4.20-5.40); White Blood Count 5.0 10^3/uL (4.0-11.0)
[2025-02-13 21:47] LABS: Glucose Urine UA NEGATIVE (NEGATIVE)
[2025-02-13] MEDS: ONDANSETRON 4 MG RAPDIS TABLET SL (21:48)
[2025-02-13 21:49] LABS: Ammonia <10 umol/L (11-32)
[2025-02-13 22:00] LABS: Cast Seen? NONE SEEN #/LPF (NONE SEEN); Crystals Seen? None Seen #/HPF (None Seen); Urine Culture Indicated YES-FRMC
[2025-02-13 22:02] LABS: Cannabinoid Screen Urine NEGATIVE (NEGATIVE); Methamphetamines Screen Urine NEGATIVE (NEGATIVE); Tricyclic Antidepressant Urine NEGATIVE (NEGATIVE)
[2025-02-13 22:02] LABS: Thyroid Stimulating Hormone 13.345 uIU/mL (0.358-3.740)
[2025-02-13 22:03] LABS: Alanine Aminotransferase 11 U/L (14-59); Albumin Globulin Ratio 1.0; Albumin Level 3.6 g/dL (3.4-5.0); Alkaline Phosphatase 139 U/L (46-116); Anion Gap 16.4; Aspartate Amino Transferase 14 U/L (15-37); Blood Urea Nitrogen 33.0 mg/dL (7.0-18.0); Calcium 6.1 mg/dL (8.5-10.1); Carbon Dioxide 18.4 mmol/L (21.0-32.0); Chloride 97 mmol/L (98-107); Estimated GFR (African America 15 (>=60 mL/min/1.73m^2); Estimated GFR (Non-African Ame 12 (>=60 mL/min/1.73m^2); Globulin 3.5 g/dL; Glucose 87 mg/dL (74-106); Sodium 129 mmol/L (136-145); Total Protein 7.1 g/dL (6.4-8.2)
[2025-02-13 22:06] LABS: Potassium 2.8 mmol/L (3.5-5.1)
[2025-02-13 22:07] LABS: Magnesium 0.3 mg/dL (1.8-2.4)
--- NOTE | 2025-02-13 22:46 | XR_ITS ---
The [address] [address] Patient Name: ORESTES LOPEZ MRN: [id number] date: 1965 Sex: F Assigned Patient Location: ER Current Patient Location: ER Accession/Order Number: [id number] Exam Date: 02/13/2025 22:48 Report Date: 02/13/2025 23:16 At the request of: AYANNA GIBSON MD Procedure: XR chest 1V Plain film chest Single view HISTORY: Medical clearance. COMPARISON: None FINDINGS: SUPPORT DEVICES: Dialysis catheter unchanged POSTSURGICAL CHANGES: None HEART: Within normal limits PULMONARY TC: Within normal limits MEDIASTINUM: Unremarkable LUNGS AND PLEURA: No acute lung process, pleural effusion or pneumothorax identified. BONY STRUCTURES: Intact ADDITIONAL FINDINGS None XR/XR chest 1V IMPRESSION: No acute process. Dialysis catheter unchanged Impression dictated by: Zhen Bunch M.D. 02/13/2025 11:16 PM Dictation Location: [place] [address] Electronically authenticated by: [id number] Y Date: 02/13/2025 23:16
[2025-02-13] MEDS: POTASSIUM BICARBONATE/CIT 25 MEQ TABLET EFF 50 MEQ PO (22:47)
[2025-02-13] MEDS: MAGNESIUM SULFATE IN WATER 2 GM/50 ML PREMIX IV (22:47)
[2025-02-13] MEDS: CALCIUM GLUCONATE 1,000 MG/10 ML VIAL 1000 MG IVP (23:19)
[2025-02-13] MEDS: POTASSIUM CHLORIDE IN WATER 10 MEQ/100 ML PREMIX 100 MEQ IV (23:26)
[2025-02-13 23:42] LABS: NT Pro B Type Natriuretic Pept 11478.0 pg/mL (<=900.0)
[2025-02-13] MEDS: 0.9 % SODIUM CHLORIDE 1,000 ML 100 ML IV (23:52)
[2025-02-14] VITALS (10 sets, daily range): BP systolic 102–151; BP diastolic 67–104; PULSE 70–146; TEMP 36.6–37.1; O2SAT 96–100; BMI 21.6
[2025-02-14] MEDS: CIPROFLOXACIN IN 5 % DEXTROSE 400 MG/200 ML PREMIX 200 MG IV (00:33)
--- OUTSIDE RECORDS SUMMARY | 2025-02-14 01:05 | XMS_ITS | CCD ---
Author Organization [facility] Inform ion Partnership [facility] [place] [facility] Care Team Providers Care Tuckpointer Name Role Phone PHYSICIAN, DEFAULT Unavailable Unavailable PHYSICIAN, DEFAULT Unavailable Unavailable CASON, LASHA Unavailable Unavailable PHYSICIAN, DEFAULT Unavailable Unavailable PHYSICIAN, DEFAULT Unavailable Unavailable CASON, LASHA Unavailable Unavailable DO Segundo Rawls Primary Care Provider DO Hong Jewell Admit Provider DO Hong [...] Other Provider MD Brad Gan Other Provider [phone] EVAN, DR UNIQUE [employer] Unavailable [...] Jarrell Emergency Provider William Esposito Unavailable Locorbachechristos SYSTEMS OPERATOR, Katie Primary Care Provider LocorbacheKatie sher APRN Attending Provider [phone] Unavailable Primary Care Provider Unavailjamie e LocorbacheKatie shre APRN Primary Care Provider Sheryl Santamaria DO Attending Provider PROVIDER, UNKNOWN Attending Unavailable PROVIDER, UNKNOWN Admitting Unavailable Unavailable Primary Care Provider Unavailjamie e Locorbachechristos IT PROJECT LEAD, Katie A Primary Care Provider Locorbacher IT PROJECT LEAD, Katie A Primary Care Provider LUCIANA [...] of OnsetReaction(s) Facility (2 sources)cephalexin; Translations: [KEFLEX]Drug Gmndnic96-65-9444EQPTll [facility] Repository (10 sources)predniSONE; Translations: [PREDNISONE]Drug Nyjpnft46-89-4951Shlrlgzp [facility] Repository (8 sources)Cephalexin; Translations: [cephalexin]Drug Yptjwge95-89-2574Totnww, [facility] Medications Current Medications MedicationDrug Class(es)DatesSig (Normalized)Sig (Original)acetaminophen 325 mg / HYDROcodone bitartrate 5 mg oral tablet (1 source)Opioid AgonistStart: 09-09-2024 End: 29-21-6307tupe 1 tablet by mouth every six hours as needed for pain and pain and painHYDROcodone-acetaminophen ([place]) 5-325 MG tablet Indications: Pain Take 1 tablet by mouth every 6 (six) hours if needed for severe pain 120 tablet 09/09/2024 10/09/2024 Activealbuterol 0.833 mg/ml / ipratropium bromide 0.167 mg/ml inhalation solution (1 source)Anticholinergic, beta2-Adrenergic AgonistStart: 25-61-5051xaem 3 mL by inhalation every four hours as needed for wheezingipratropium-albuteroL (DUONEB) 0.5 mg-3 mg(2.5 mg base)/3 mL nebulizer Indications: Acute respiratory failure with hypoxia ([facility]) Inhale 3 mL by nebulization every 4 (four) hours as needed for wheezing. 30 mL 2 07/03/2024 Activeapixaban 2.5 mg oral tablet (1 source)Factor Xa InhibitorStart: 33-53-3666ihqr 1 tablet by mouth in the morning, then take 1 tablet by mouth at bedtimeELIQUIS 2.5 mg tablet Take 1 tablet (2.5 mg total) by mouth in the morning and 1 tablet (2.5 mg total) before bedtime. 04/28/2024 Activeascorbic acid 500 mg oral tablet (7 sources)Vitamin CStart: 88-26-7741lebc 1 tablet by mouth at breakfastAscorbic Acid (Vitamin C) (Vitamin C) 500 mg Tablet Active 500 MG PO With breakfast and lunch 60 30S2021 12:00amCalcium 1000 + D 1000-20 MG-MCG (1 source)take 1 tablet by mouth twice dailyCalcium 1000 + D 1000-20 MG-MCG 1 tablet with a meal Orally twice a day Activecalcium carbonate 1250 mg oral tablet (6 sources)Start: 12-94-6279Xqxuorn Carbonate (Oyster Shell Calcium 500) 500 mg calcium (1,250 mg) Tablet Active 1000 MG PO Twice daily 120 December 10, 2021 12:00amcalcium carbonate 298 mg / magnesium chloride 596 mg delayed release oral tablet (1 source)take 1 tablet by mouth every twenty-four hoursSlow-Mag 71.5-119 MG 1 TABLET Orally Once a day Activecarvedilol 12.5 mg oral tablet (1 source)alpha-Adrenergic Humberto, beta-Adrenergic BlockerStart: 01-32-0531gmpv 1 tablet by mouth in the morning, then take 1 tablet by mouth at bedtime carvediloL (COREG) 12.5 mg tablet Indications: hypertension Take 1 tablet (12.5 mg total) by mouth in the morning and 1 tablet (12.5 mg total) before bedtime. Indications: high blood pressure. 90 tablet 2 07/03/2024 Activecholecalciferol 0.01 mg oral tablet (6 sources)Vitamin DStart: 17-89-3701qxak 1 tablet by mouth twice daily at mealtimeCholecalciferol (Vitamin D3) (Vitamin D3) 10 mcg (400 unit) Tablet Active 20 MCG PO Twice daily with meals December 10, 2021 12:00am0.3 ml darbepoetin anai 0.2 mg/ml prefilled syringe (1 source)Erythropoiesis-stimulating AgentStart: 59-69-0495lavuio 0.3 mL by subcutaneous injection every weekdarbepoetin anai-polysorbate (ARANESP) 60 mcg/0.3 mL syringe Indications: anemia due to renal failure Inject 0.3 mL (60 mcg total) under the skin once a week Indications: anemia due to kidney failure. 0.3 mL 5 07/05/2024 Activedocusate sodium 50 mg / sennosides, penitentiary 8.6 mg oral tablet (1 source)Start: 99-58-4247omlpfgzgzd-docusate sodium (SENOKOT-S) 8.6-50 mg Take 2 tablets by mouth as needed for constipation. 30 tablet 07/03/2024 Active ferrous sulfate 324 mg delayed release oral tablet (7 sources)Start: 13-39-3964Fczymgx Sulfate 324 mg (65 mg iron) Tablet,Delayed Release (Dr/Ec) Active 324 MG PO Q48H 15 December 10, 2021 12:00amtake 1 tablet by mouth every twenty-four hoursFerrous Sulfate 324 MG 1 tablet Orally Once a day Not-Takingfolic acid 1 mg oral tablet (7 sources)Start: 97-10-9104uzmb 1 tablet by mouth once dailyFolic Acid 1 mg Tablet Active 1 MG PO Daily December 10, 2021 12:00amLORazepam 0.5 mg oral tablet (9 sources)BenzodiazepineStart: 08-26-2024 End: 78-03-7595lqsd 1 tablet by mouth every eight hours for anxietyLORazepam (Ativan) 0.5 MG tablet Indications: Anxiety disorder, unspecified type Take 1 tablet (0.5mg) by mouth every 8 (eight) hours if needed for anxiety for up to 14 days 42 tablet 08/26/2024 ActiveStart: 08-16-2024 End: 67-76-0181oerb 1 tablet by mouth once dailyLORazepam (Ativan) 1 MG tablet Indications: Anxiety about treatment Take 1 tablet (1 mg) by mouth Daily Give daily before HD on dialysis days 30 tablet 08/16/2024 09/15/2024 ActiveStart: 07-26-2024 End: 79-20-0063lapu 2 tablets by mouth once dailyLORazepam (Ativan) 0.5 MG tablet Indications: Anxiety about treatment Take 2 tablets (1 mg) by mouth Daily for 14 days Give daily before HD on Mon, , Mon, , Monday. 28 tablet 07/26/2024 08/16/2024 Discontinuedmagnesium oxide 400 mg oral tablet (8 sources)Start: 09-28-2023 End: 34-13-8715bvta 1 tablet by mouth twice dailyMagnesium Oxide 400 mg magnesium tablet Active 400 MG PO Twice daily 180 90 September 28, 2023 3:07pm metoprolol tartrate 100 mg oral tablet (15 sources)beta-Adrenergic BlockerStart: 09-28-2023 End: 22-47-6078Ywzkbqpinm Tartrate 100 mg tablet Active 150 MG PO Daily 135 90 September 28, 2023 3:07pmStart: 09-28-2023 End: 82-85-7040vhgo 150 mg by mouth once dailyMetoprolol Tartrate Active 150 MG PO Daily 135 90 September 28, 2023 3:07pmStart: 12-04-2021 End: 09-10-7428ploi 1 tablet by mouth once dailyMetoprolol Succinate 100 mg tablet extended release 24 hr Discontinued 100 MG PO Daily November 12:00am September 28, 2023 2:56pmmidodrine hydrochloride 10 mg oral tablet (1 source)alpha-Adrenergic AgonistStart: 98-75-9070twqljstgy (PROAMATINE) 10 mg tablet Take 1 tablet (10 mg total) by mouth as needed (give pre/mid during dialysis as needed for SBP 07/03/2024 Activepantoprazole 40 mg delayed release oral tablet (1 source)Proton Pump InhibitorStart: 98-59-9915ueks 1 tablet by mouth once daily before breakfastpantoprazole (PROTONIX) 40 mg EC tablet Take 1 tablet (40 mg total) by mouth every morning before breakfast. 05/24/2024 Activethiamine 200 mg oral tablet (7 sources)Start: 45-18-5561Dslxxjhb Hcl (Vitamin B1) 100 mg Tablet Active [...] capsule (6 sources)Histamine-1 Receptor AntagonistStart: 12-04-2021 End: 43-74-7738jhki 1 capsule by mouth twice dailyDiphenhydramine Hcl (Benadryl) 25 mg Capsule Discontinued 25 MG PO Twice daily December 04, 2021 12:00am December 10, 2021 1:24pmfurosemide 40 mg oral tablet (7 sources)Loop DiureticStart: 12-10-2021 End: 55-50-5393nxhf 1 tablet by mouth once dailyFurosemide 40 mg Tablet Discontinued 40 MG PO Daily at 0800 30 December 10, 2021 12:00am September 28, 2023 2:56pm Further refills, or dose adjustment, per Nephrology with Dr. Esposito. levoFLOXacin 750 mg oral tablet (6 sources)Quinolone AntimicrobialStart: 12-10-2021 End: 73-12-5730Vyqqzxifjiyi 750 mg Tablet Discontinued 750 MG PO Q48H 4 8 December 10, 2021 12:00am September 27, 2023 4:47pm Next dose is due on Monday. levothyroxine sodium 0.1 mg oral capsule (20 sources)l-ThyroxineStart: 09-28-2023 End: 58-53-0445nhhr 1 capsule by mouth once dailyLevothyroxine 100 mcg capsule Discontinued 100 MCG PO Daily 90 90 September 28, 2023 3:06pm September 3:20pm Start: 12-04-2021 End: 93-81-1547tcza 1 tablet by mouth once dailyLevothyroxine 100 mcg tablet Active 100 MCG PO Daily September 28, 2023 12:00amtake 1 tablet by mouth once daily in the morningLevothyroxine Sodium 100 MCG 1 tablet in the morning on an empty stomach Orally Once a day Activelisinopril 20 mg oral tablet (6 sources)Angiotensin Converting Enzyme InhibitorStart: 12-04-2021 End: 62-10-9345pqgz 1 tablet by mouth once dailyLisinopril 20 mg tablet Discontinued 20 MG PO Daily December 04, 2021 12:00am December 10, 2021 1:24pm magnesium chloride 598 mg delayed release oral tablet (6 sources)Start: 12-10-2021 End: 59-87-7940mhbn 1 tablet by mouth once dailyMagnesium Chloride [...] capsule (15 sources)Proton Pump InhibitorStart: 12-04-2021 End: 56-09-4969jdjs 1 capsule by mouth once dailyOmeprazole 20 mg capsule,delayed release(DR/EC) Discontinued 20 MG PO Daily September 28, 2023 12:00amSeptember 28, 2023 3:09pmsodium bicarbonate 650 mg oral tablet (7 sources)Start: 12-10-2021 End: 17-00-0986hzhk 1 tablet by mouth three times dailySodium Bicarbonate 650 mg Tablet Discontinued 650 MG PO Three times daily December 10, 2021 12:00am September 28, 2023 2:57pm Problems Active Problems Problem ClassificationProblemDateDocumented DateEpisodic/ChronicAcute and unspecified renal failure (8 sources)Injury of kidney; Translations: [Acute kidney failure, unspecified] Onset: 165426-67-2748RagejhooZejrd myocardial infarction (11 sources)Myocardial infarction; Translations: [Myocardial infarction type 2] 09-18-7938WyxeomcXucvzxi-related disorders (11 sources)Alcohol abuse; Translations: [Alcohol abuse, uncomplicated]Onset: 812887-91-2971SpztalcOukokhh disorders (3 sources)Anxiety disorder, unspecified; Translations: [Anxiety disorder]Onset: 995345-51-9110AxwrhzmFbwkftu dysrhythmias (20 sources)Atrial fibrillation; Translations: [Unspecified atrial fibrillation] Onset: 078675-83-6677PkerneqCsplgca kidney disease (3 sources)Chronic kidney disease stage 4; Translations: [Chronic kidney disease, stage 4 (severe)]Onset: 55-27-1199DtamlchUgpwbgt kidney disease (2 sources)Chronic kidney disease; Translations: [Chronic kidney disease, stage III (moderate)]Chronic obstructive pulmonary disease and bronchiectasis (1 source)Chronic obstructive pulmonary disease, unspecified; Translations: [COPD UNSPECIFIED]Onset: 20-80-1903AazfdpbBlzbqfuathlr of device; implant or graft (1 source)Infection and inflammatory reaction due to other cardiac and vascular devices, implants and grafts,initial encounter; Translations: [Infection and inflammatory reaction due to other cardiac and vascular devices, implants and grafts, initial encounter]Onset: 72-77-4887CaqsgumoCooywypnwo associated with dizziness or vertigo (3 sources)Dizziness and giddiness; Translations: [DIZZINESS AND GIDDINESS] Onset: 66-81-2066PcnfoiacSdiklyfnjg and other anemia (1 source)Anemia of renal disease; Translations: [Anemia in chronic kidney disease]ChronicDeficiency and other anemia (1 source)Anemia in chronic kidney diseaseChronicDeficiency and other anemia (6 sources)Macrocytic anemia; Translations: [Nutritional anemia, unspecified] 84-34-9184GogplremNemgamcabi and other anemia (6 sources)Anemia; Translations: [Anemia, unspecified]38-95-7897Rpovhtwj Deficiency and other anemia (2 sources)Anemia, unspecified; Translations: [Anemia, unspecified]Onset: 103087-77-4082VbxyjbfeCwfpoecpzy and other anemia (1 source)Nutritional anemia, unspecified; Translations: [Unspecified deficiency anemia]81-95-4016EzoubevlCsehvafcld disorders (8 sources)Gastroesophageal reflux disease; Translations: [Gastro-esophageal reflux disease without esophagitis]62-20-6273YnfvidcXvquxqgio hypertension (17 sources)Hypertensive disorder; Translations: [Essential (primary) hypertension]Onset: 896000-00-0361BemujyrCogst and electrolyte disorders (17 sources)Hyponatremia; Translations: [Hypo-osmolality and hyponatremia]Onset: 933386-35-8914ItgunngiUcmywiglowal with complications and secondary hypertension (4 sources)Hypertensive urgency ; Translations: [Hypertensive urgency]Chronic Malaise and fatigue (8 sources)Weakness; Translations: [Asthenia]Onset: 60-12-2362Ulqsdugr Miscellaneous mental health disorders (2 sources)Anxiety about treatment; Translations: [Other symptoms and signs involving emotional state]78-85-5298ByvsysssBrbmsijchyvn breast conditions (3 sources)Breast lump; Translations: [Unspecified lump in the left breast, unspecified quadrant]34-74-3723JwbjwscyHsaalrfixra deficiencies (9 sources)Moderate protein energy malnutrition; Translations: [Moderate protein-calorie malnutrition]87-89-4317ZjhadxzMomrsdauxza deficiencies (20 sources)Ascorbic acid deficiency; Translations: [Ascorbic acid deficiency] 69-58-3846YaspvohsWecio aftercare (1 source)Other mergers and acquisitions manager (current) drug therapy; Translations: [OTH JAIL CURRENT DRUG THERAPY]Onset: 35-57-6847KotapqmmXobyd and ill-defined heart disease (6 sources)Takotsubo cardiomyopathy; Translations: [Takotsubo syndrome] 17-95-8014LwwuzlcZgxmw and ill-defined heart disease (5 sources)Takotsubo syndrome; Translations: [Takotsubo syndrome]12-10-2021 ChronicOther connective tissue disease (2 sources)Recurrent falls ; Translations: [Repeated falls]93-40-4014Jsaazdcj Other connective tissue disease (1 source)Repeated falls; Translations: [History of fall]45-46-8169KkdmnhsfPgveu diseases of bladder and urethra (7 sources)Urethral stenosis; Translations: [Urethral stenosis]12-08-2021 EpisodicOther diseases of kidney and ureters (6 sources)Hydronephrosis; Translations: [Unspecified hydronephrosis]12-08-2021 EpisodicOther diseases of kidney and ureters (1 source)Unspecified hydronephrosis; Translations: [Hydronephrosis]12-10-2021 EpisodicOther hematologic conditions (1 source)Other specified abnormalities of plasma proteins; Translations: [OTH SPEC ABNORM PLASMA PROTEINS]Onset: 69-00-6193BbnrgcbnGyfvr injuries and conditions due to external causes (2 sources)Other foreign object in respiratory tract, part unspecified causing other injury, initial encounter; Translations: [Foreign body in respiratory tree, unspecified]Onset: 954965-25-6191IblslswcEivpd injuries and conditions due to external causes (1 source)Other injury of unspecified body region, initial encounter; Translations: [Other injury of unspecified body region, initial encounter]Onset: 82-00-0740ZuymjidjHmkwa lower respiratory disease (1 source)Respiratory distressOnset: 17-34-9093KqaezfgoQmmno nutritional; endocrine; and metabolic disorders (7 sources)Hypomagnesemia; Translations: [Hypomagnesemia]59-65-8984WjapzxeGfzfb nutritional; endocrine; and metabolic disorders (6 sources)Hypocalcemia; Translations: [Hypocalcemia]48-99-7195SotaemmZxssc nutritional; endocrine; and metabolic disorders (2 sources)Hypocalcemia; Translations: [Hypocalcemia]Onset: 862490-93-3687 ChronicOther nutritional; endocrine; and metabolic disorders (5 sources)Hypomagnesemia; Translations: [Disorders of magnesium metabolism] 71-66-4840ZarvsdgLalvn screening for suspected conditions (not mental disorders or infectious disease) (3 sources)Mammography abnormal; Translations: [Other abnormal and inconclusive findings on diagnostic imagingof breast]Onset: 210756-05-8890DlaxvdvmKltpz skin disorders (3 sources)Breast changes; Translations: [Changes in skin texture]12-27-2023 EpisodicOther skin disorders (2 sources)Changes in skin texture; Translations: [Changes in skin texture] 82-92-6044WavoqttnMlwvq skin disorders (1 source)Localized swelling, mass and lump, right upper limb; Translations: [Localized swelling, mass and lump, right upper limb]Onset: 18-78-5232Qcrfvbjc Residual codes; unclassified (3 sources)Noncompliance with treatment; Translations: [Noncompliance]12-28-2023 EpisodicResidual codes; unclassified (1 source)Pain; Translations: [Pain, unspecified]19-20-0294YhurvlfqCrwuoxujffd failure; insufficiency; arrest (adult) (4 sources)Acute respiratory failure; Translations: [Acute respiratory failure with hypoxia]Onset: 828614-32-6385DsbcgeqeAadzmgzuws arthritis and related disease (9 sources)Rheumatoid arthritis; Translations: [Rheumatoid arthritis, unspecified]Onset: 990307-44-8125KtxhsxwXivggmlpqc (except in labor) (2 sources)Sepsis, unspecified organism; Translations: [Severe sepsis without septic shock]Onset: 05-61-1123AgpefchoThnupbilf-related disorders (1 source)Nicotine dependence, cigarettes, uncomplicated; Translations: [NICOTINE DEPEND CIGARETTES UNCOMP]Onset: 18-48-4648ArgdwtkWyxfook (7 sources)Vasovagal syncope; Translations: [Syncope and collapse]12-06-2021 EpisodicSystemic lupus erythematosus and connective tissue disorders (8 sources)Lupus erythematosus; Translations: [Systemic lupus erythematosus, unspecified]50-64-9263DprirhuOmuhwkf disorders (12 sources)Hypothyroidism; Translations: [Hypothyroidism, unspecified]Onset: 808399-65-0677StfcfawVoncmcapnymu (1 source)CONTACT W/AND (SUSP) EXPOS COVID-19; Translations: [CONTACT W/AND (SUSP) EXPOS COVID-19]Onset: 43-25-3313Cxguvlmbtwyj (4 sources)Large breast; Translations: [Increased size of breast]12-27-2023 Past or Other Problems Problem ClassificationProblemDateDocumented DateEpisodic/ChronicResidual codes; unclassified (1 source)Pain, unspecified; Translations: [Pain, unspecified]Onset: 06-14-2024 Episodic Results Test NameValueInterpretationReference RangeFacilityBasic Metabolic Panelon 04-61-5881Lijab gap [Moles/Vol]14.5 mmol/LNormal6.0-15.0The [facility] Physician GroupComment on above:Performed By: #### BMP, DIFF CBC #### [facility] [address] [place] [address] USACalcium [Mass/Vol]9.1 mg/dLNormal8.6-10.3The [facility] Physician GroupComment on above:Performed By: #### BMP, DIFF CBC #### [facility] [address] [place] [id number] USAChloride [Moles/Vol]95 mmol/ZWoi58-208Tyo [facility] Physician GroupComment on above:Performed By: #### BMP, DIFF CBC #### [facility] [address] [place] [address] USACO2 [Moles/Vol]25.7 mmol/SJnekga66.0-31.0The [facility] Physician GroupComment on above:Performed By: #### BMP, DIFF CBC #### [facility] [address] [place] [address] USACreatinine [Mass/Vol]3.15 mg/dLInvalid Interpretation Code 0.60-1.20The [facility] Physician GroupComment on above:Performed By: #### BMP, DIFF CBC #### [place] [address] USACreatinine Clr Calc Dxvkngdi30.90NoCount includes the [facility] Physician GroupComment on above:Result Comment: PERFORMED BY: [place] [address] PATHOLOGIST JEWEL HOLE GAUGER DENILSON COSTA M.D.Performed By: #### BMP, DIFF CBC #### [place] [address] USAEstimated GFR16.175 mL/MinNoCount includes the [facility] Physician [facility] UnitComment on above:Performed By: #### BMP, DIFF CBC #### [place] [address] USAGlucose [Mass/Vol]88 mg/eJSgsscd02-989Bkg [facility] Physician GroupComment on above:Result Comment: Random Glucose Reference Range is dependent on time and content of last meal. Glucose of more than 200 mg/dL in a nonstressed, ambulatory subject supports the diagnosis of Diabetes Mellitus. ADA recommended reference rangePerformed By: #### BMP, DIFF CBC #### [place] [address] USAPotassium [Moles/Vol]3.2 mmol/LLow3.5-5.1The [facility] Physician GroupComment on above:Performed By: #### BMP, DIFF CBC #### [place] [address] USASodium [Moles/Vol]132 mmol/IRgu318-125Gbj [facility] Physician GroupComment on above:Performed By: #### BMP, DIFF CBC #### [place] [address] USAUrea nitrogen [Mass/Vol]39 mg/dLHigh7-25The [facility] Physician GroupComment on above:Performed By: #### BMP, DIFF CBC #### [facility] [address] [place] [id number] USADiff and CBCon 83-12-0445Aniaiwhlwclg Ql (Bld)SlightNormal The [facility] Physician GroupComment on above:Performed By: #### BMP, DIFF CBC #### [facility] [address] [place] [address] USABand form neutrophils/100 WBC (Bld)1 %Normal0-5The [facility] Physician GroupComment on above:Performed By: #### BMP, DIFF CBC #### [facility] [address] [place] [address] USABasophils/100 WBC (Bld)1 %Normal0-2The [facility] Physician GroupComment on above:Performed By: #### BMP, DIFF CBC #### [place] [address] USAEosinophils/100 WBC (Bld)8 %High1-3The [facility] Physician GroupComment on above:Performed By: #### BMP, DIFF CBC #### [place] [address] USAErythrocyte distribution width (RBC) [Ratio]18.3 %High 11.9-15.3The [facility] Physician GroupComment on above:Performed By: #### BMP, DIFF CBC #### [place] [address] USAHematocrit (Bld) [Volume fraction]27.3 %Low34.0-46.4The [facility] Physician GroupComment on above:Performed By: #### BMP, DIFF CBC #### [place] [address] USAHemoglobin (Bld) [Mass/Vol]9.2 g/dLLow11.8-15.4The [facility] Physician GroupComment on above:Performed By: #### BMP, DIFF CBC #### [place] [id number] USAHypochromasiaSlightNormalThe [facility] Comment on above:Performed By: #### BMP, DIFF CBC #### [place] [address] USALymphocytes/100 WBC (Bld)23 %Chjuqn15-24Qud [facility] Physician GroupComment on above:Performed By: #### BMP, DIFF CBC #### [place] [address] USAMacrocytosisSlightNormHoly Cross Hospital Physician [facility] Comment on above:Performed By: #### BMP, DIFF CBC #### [place] [address] USAMCH (RBC) [Entitic mass]30.6 kpIupxol30.7-34.3The [facility] Physician GroupComment on above:Performed By: #### BMP, DIFF CBC #### [place] [address] USAMCV (RBC) [Entitic vol]90.2 tCKogonx11-562Dmn [facility] Physician GroupComment on above:Performed By: #### BMP, DIFF CBC #### [place] [address] USAMean Corpuscular HGB Conc33.9 g/xJOcrujz22.0-35.0The [facility] Physician [facility] UnitComment on above:Performed By: #### BMP, DIFF CBC #### [place] [address] USAMetamyelocytes3 %High0-0The [facility] Physician [facility] Comment on above:Performed By: #### BMP, DIFF CBC #### [place] [address] USAMonocytes/100 WBC (Bld)7 %Normal2-11The [facility] Physician GroupComment on above:Performed By: #### BMP, DIFF CBC #### [place] [address] USAPlatelet EstimateDecreasedNormalNoUniversity Hospitals Samaritan Medical Centere [facility] Physician [facility] UnitComment on above:Performed By: #### BMP, DIFF CBC #### [place] [address] USAPlatelet mean volume (Bld) [Entitic vol]7.7 fLNormal 6.3-10.7The [facility] Physician GroupComment on above:Result Comment: PERFORMED BY: [place] [address] PATHOLOGIST JEWEL HOLE GAUGER DENILSON COSTA M.D.Performed By: #### BMP, DIFF CBC #### [place] [address] USAPlatelet MorphologyNormalNormalNormHoly Cross Hospital Physician GroupComment on above:Result Comment: PERFORMED BY: [place] [address] PATHOLOGIST JEWEL HOLE GAUGER DENILSON COSTA M.D.Performed By: #### BMP, DIFF CBC #### [place] [address] USAPlatelets (Bld) [#/Vol]143 10*3/jYDlm534-313Tfh [facility] Physician GroupComment on above:Performed By: #### BMP, DIFF CBC #### [place] [address] USAPolychromasiaSAtrium Health Union [facility] Comment on above:Performed By: #### BMP, DIFF CBC #### [place] [address] USAPromyelocytes1 %High0-0The [facility] Comment on above:Performed By: #### BMP, DIFF CBC #### [place] [address] USARBC (Bld) [#/Vol]3.03 10*6/uLLow3.60-5.00The [facility] Physician GroupComment on above:Performed By: #### BMP, DIFF CBC #### [place] [address] USARouleauxSAtrium [facility] UnitComment on above:Performed By: #### BMP, DIFF CBC #### [place] [address] USASegmented neutrophils/100 WBC (Bld)56 %Ysxgcz66-00Omf [facility] Physician GroupComment on above:Performed By: #### BMP, DIFF CBC #### [place] [address] USAWBC (Bld) [#/Vol]8.3 10*3/uLNormal3.8-11.6The [facility] Physician GroupComment on above:Performed By: #### BMP, DIFF CBC #### [place] [address] USAVancomycin,Randomon 37-84-4671Dxcamrkvtu,Mgsphc96.5 ug/mL Normal5.0-20.0The [facility] Physician GroupComment on above:Order Comment: Date of last dose?: [id number] Time of last dose?: ult Comment: Last dose: - PERFORMED BY: [place] [address] PATHOLOGIST JEWEL HOLE GAUGER DENILSON COSTA M.D.Performed By: #### BMP, DIFF CBC #### [place] [address] USABasic Metabolic Panelon 04-73-7310Znhif gap [Moles/Vol] 12.0 mmol/LNormal6.0-15.0The [facility] Physician GroupComment on above:Performed By: #### BMP, DIFF CBC #### [place] [address] USACalcium [Mass/Vol]9.0 mg/dLNormal8.6-10.3The [facility] Physician GroupComment on above:Performed By: #### BMP, DIFF CBC #### [place] [address] USAChloride [Moles/Vol]96 mmol/GZck61-349Fyj [facility] Physician GroupComment on above:Performed By: #### BMP, DIFF CBC #### [place] [address] USACO2 [Moles/Vol]28.4 mmol/NWfvyte06.0-31.0The [facility] Physician GroupComment on above:Performed By: #### BMP, DIFF CBC #### [place] [address] USACreatinine [Mass/Vol]2.13 mg/dLInvalid Interpretation Code 0.60-1.20The [facility] Physician GroupComment on above:Performed By: #### BMP, DIFF CBC #### [place] [address] USACreatinine Clr Calc Ncbkazpu24.33NormParkview Healthe [facility] Physician GroupComment on above:Result Comment: PERFORMED BY: [place] [address] PATHOLOGIST JEWEL HOLE GAUGER DENILSON COSTA M.D.Performed By: #### BMP, DIFF CBC #### [place] [address] USAEstimated GFR25.868 mL/MinNoCount includes the [facility] Physician GroupComment on above:Performed By: #### BMP, DIFF CBC #### [place] [address] USAGlucose [Mass/Vol]86 mg/wRXshyxv97-119Chr [facility] Physician GroupComment on above:Result Comment: Random Glucose Reference Range is dependent on time and content of last meal. Glucose of more than 200 mg/dL in a nonstressed, ambulatory subject supports the diagnosis of Diabetes Mellitus. ADA recommended reference rangePerformed By: #### BMP, DIFF CBC #### [place] [address] USAPotassium [Moles/Vol]3.4 mmol/LLow3.5-5.1The [facility] Physician GroupComment on above:Performed By: #### BMP, DIFF CBC #### [place] [address] USASodium [Moles/Vol]133 mmol/FWby302-025Xlr [facility] Physician GroupComment on above:Performed By: #### BMP, DIFF CBC #### [place] [address] USAUrea nitrogen [Mass/Vol]26 mg/dLHigh7-25The [facility] Physician GroupComment on above:Performed By: #### BMP, DIFF CBC #### [place] [address] USADiff and CBCon 13-68-3595Tprxdowarjfn Ql (Bld)SlightNormal The [facility] Physician GroupComment on above:Performed By: #### BMP, DIFF CBC #### [place] [address] USAEosinophils/100 WBC (Bld)4 %High1-3The [facility] Physician GroupComment on above:Performed By: #### BMP, DIFF CBC #### [place] [address] USAErythrocyte distribution width (RBC) [Ratio]18.4 %High 11.9-15.3The [facility] Physician GroupComment on above:Performed By: #### BMP, DIFF CBC #### [place] [address] USAHematocrit (Bld) [Volume fraction]31.3 %Low34.0-46.4The [facility] Physician GroupComment on above:Performed By: #### BMP, DIFF CBC #### [place] [address] USAHemoglobin (Bld) [Mass/Vol]10.4 g/dLLow11.8-15.4The [facility] Physician GroupComment on above:Performed By: #### BMP, DIFF CBC #### [place] [address] USAHypochromasiaSlightNormalThe [facility] Comment on above:Performed By: #### BMP, DIFF CBC #### [place] [address] USALymphocytes/100 WBC (Bld)19 %Eojqla75-60Jta [facility] Physician GroupComment on above:Performed By: #### BMP, DIFF CBC #### [place] [address] USAMCH (RBC) [Entitic mass]30.1 eeCuqzid77.7-34.3The [facility] Physician GroupComment on above:Performed By: #### BMP, DIFF CBC #### [place] [address] USAMCV (RBC) [Entitic vol]90.7 lADvuyhe55-004Pcp [facility] Physician GroupComment on above:Performed By: #### BMP, DIFF CBC #### [place] [address] USAMean Corpuscular HGB Conc33.2 g/xRCncpdb82.0-35.0The [facility] Physician GroupComment on above:Performed By: #### BMP, DIFF CBC #### [place] [address] USAMetamyelocytes2 %High0-0The [facility] Comment on above:Performed By: #### BMP, DIFF CBC #### [place] [address] USAMonocytes/100 WBC (Bld)8 %Normal2-11The [facility] Physician GroupComment on above:Performed By: #### BMP, DIFF CBC #### [place] [address] USAMyelocytes1 %High0-0The [facility] Physician GroupComment on above:Performed By: #### BMP, DIFF CBC #### [place] [address] USAPlatelet EstimateNormalNormalNormHoly Cross Hospital Physician GroupComment on above:Performed By: #### BMP, DIFF CBC #### [place] [address] USAPlatelet mean volume (Bld) [Entitic vol]7.6 fLNormal 6.3-10.7The [facility] Physician GroupComment on above:Result Comment: PERFORMED BY: [place] [address] PATHOLOGIST JEWEL HOLE GAUGER DENILSON COSTA M.D.Performed By: #### BMP, DIFF CBC #### [place] [address] USAPlatelet MorphologyNormalNormalNormHoly Cross Hospital Physician GroupComment on above:Result Comment: PERFORMED BY: [place] [address] PATHOLOGIST JEWEL HOLE GAUGER DENILSON COSTA M.D.Performed By: #### BMP, DIFF CBC #### [facility] [address] [place] [address] USAPlatelets (Bld) [#/Vol]153 10*3/hZYgsyhw746-990Cds [facility] Physician GroupComment on above:Performed By: #### BMP, DIFF CBC #### [place] [address] USAPromyelocytes1 %High0-0The [facility] Comment on above:Performed By: #### BMP, DIFF CBC #### [place] [address] USARBC (Bld) [#/Vol]3.45 10*6/uLLow3.60-5.00The [facility] Physician GroupComment on above:Performed By: #### BMP, DIFF CBC #### [place] [address] USASegmented neutrophils/100 WBC (Bld)66 %Btijvb41-93Qos [facility]ician GroupComment on above:Performed By: #### BMP, DIFF CBC #### [place] [address] USAWBC (Bld) [#/Vol]10.0 10*3/uLNormal3.8-11.6The [facility] Physician GroupComment on above:Performed By: #### BMP, DIFF CBC #### [place] [address] USABasic Metabolic Panelon 42-08-4504Ytscp gap [Moles/Vol] 15.6 mmol/LHigh6.0-15.0The [facility] Physician GroupComment on above:Performed By: #### BMP, SCAN CBC #### [place] [address] USACalcium [Mass/Vol]8.7 mg/dLNormal8.6-10.3The [facility] Physician GroupComment on above:Performed By: #### BMP, SCAN CBC #### [place] [address] USAChloride [Moles/Vol]92 mmol/OOrl00-155Dmy [facility] UnitComment on above:Performed By: #### BMP, SCAN CBC #### [place] [address] USACO2 [Moles/Vol]25.1 mmol/IMiysms30.0-31.0The [facility] UnitComment on above:Performed By: #### BMP, SCAN CBC #### [place] [address] USACreatinine [Mass/Vol]3.07 mg/dLInvalid Interpretation Code 0.60-1.20The [facility] HospitalComment on above:Performed By: #### BMP, SCAN CBC #### [place] [address] USACreatinine Clr Calc Vutqputr47.25NoProvidence HospitalComment on above:Result Comment: PERFORMED BY: [place] [address] PATHOLOGIST JEWEL HOLE GAUGER DENILSON COSTA M.D.Performed By: #### BMP, SCAN CBC #### [place] [address] USAEstimated GFR16.683 mL/MinNoProvidence HospitalComment on above:Performed By: #### BMP, SCAN CBC #### [place] [address] USAGlucose [Mass/Vol]76 mg/yMOtikvc42-611Ldb [facility] UnitComment on above:Result Comment: Random Glucose Reference Range is dependent on time and content of last meal. Glucose of more than 200 mg/dL in a nonstressed, ambulatory subject supports the diagnosis of Diabetes Mellitus. ADA recommended reference rangePerformed By: #### BMP, SCAN CBC #### [place] [address] USAPotassium [Moles/Vol]3.7 mmol/LNormal3.5-5.1The [facility] UnitComment on above:Result Comment: Hemolysis is present at a level that could interfere with the result. Contact lab if redraw is requiredPerformed By: #### BMP, SCAN CBC #### [facility] [address] [place] [address] USASodium [Moles/Vol]129 mmol/DOor399-857Jhx [facility] Physician GroupComment on above:Performed By: #### BMP, SCAN CBC #### [facility] [address] [place] [address] USAUrea nitrogen [Mass/Vol]51 mg/dLHigh7-25The [facility] Physician GroupComment on above:Performed By: #### BMP, SCAN CBC #### [facility] [address] [place] [address] USAScan and CBCon 95-60-0318Nsxfjcmcvunp Ql (Bld)Moderate NormalThe [facility] Physician GroupComment on above:Performed By: #### BMP, SCAN CBC #### [facility] [address] [place] [address] USABasophils (Bld) [#/Vol]0.1 10*3/uLNormal0.0-0.2The [facility] Physician GroupComment on above:Performed By: #### BMP, SCAN CBC #### [place] [address] USABasophils/100 WBC (Bld)0.5 %Normal.The [facility] Physician GroupComment on above:Performed By: #### BMP, SCAN CBC #### [place] [address] USAEosinophils (Bld) [#/Vol]0.2 10*3/uLNormal0.0-0.45The [facility] Physician GroupComment on above:Performed By: #### BMP, SCAN CBC #### [place] [address] USAEosinophils/100 WBC (Bld)0.8 %Normal.The [facility] Physician GroupComment on above:Performed By: #### BMP, SCAN CBC #### [facility] [address] [place] [address] USAErythrocyte distribution width (RBC) [Ratio]18.6 %High 11.9-15.3The [facility] Physician GroupComment on above:Performed By: #### BMP, SCAN CBC #### [facility] [address] [place] [address] USAHematocrit (Bld) [Volume fraction]26.8 %Low34.0-46.4The [facility] Physician GroupComment on above:Performed By: #### BMP, SCAN CBC #### [facility] [address] [place] [address] USAHemoglobin (Bld) [Mass/Vol]9.0 g/dLLow11.8-15.4The [facility] Physician GroupComment on above:Performed By: #### BMP, SCAN CBC #### [facility] [address] [place] [address] USAHypochromasiaSlightNormalThe [facility] Comment on above:Performed By: #### BMP, SCAN CBC #### [facility] [address] [place] [address] USALymphocytes (Bld) [#/Vol]2.0 10*3/uLNormal1.00-4.8The [facility] Physician GroupComment on above:Performed By: #### BMP, SCAN CBC #### [facility] [address] [place] [address] USALymphocytes/100 WBC (Bld)10.0 %Normal.The [facility] Physician GroupComment on above:Performed By: #### BMP, SCAN CBC #### [facility] [address] [place] [address] USAMCH (RBC) [Entitic mass]30.0 gdSnljom06.7-34.3The [facility] Physician GroupComment on above:Performed By: #### BMP, SCAN CBC #### [facility] [address] [place] [address] USAMCV (RBC) [Entitic vol]89.1 sBCwlsel94-582Nnc [facility] Physician GroupComment on above:Performed By: #### BMP, SCAN CBC #### [facility] [address] [place] [address] USAMean Corpuscular HGB Conc33.7 g/iLPhdmss18.0-35.0The [facility] Physician GroupComment on above:Performed By: #### BMP, SCAN CBC #### [place] [address] USAMonocytes (Bld) [#/Vol]0.8 10*3/uLNormal0.0-0.8The [facility] Physician GroupComment on above:Performed By: #### BMP, SCAN CBC #### [place] [address] USAMonocytes/100 WBC (Bld)4.0 %Normal.The [facility] Physician GroupComment on above:Performed By: #### BMP, SCAN CBC #### [place] [address] USANeutrophils (Bld) [#/Vol]16.6 10*3/uLHigh1.8-7.7The [facility] Physician GroupComment on above:Performed By: #### BMP, SCAN CBC #### [place] [address] USANeutrophils/100 WBC (Bld)84.7 %Normal.The [facility] Physician GroupComment on above:Performed By: #### BMP, SCAN CBC #### [place] [address] USANRBC%0.1 /100{WBC}Normal0-0.5The [facility] Comment on above:Performed By: #### BMP, SCAN CBC #### [place] [address] USAPlatelet EstimateDecreasedNormalNormalThe [facility] Physician GroupComment on above:Performed By: #### BMP, SCAN CBC #### [facility] [address] [place] [address] USAPlatelet mean volume (Bld) [Entitic vol]8.0 fLNormal 6.3-10.7The [facility] Physician GroupComment on above:Performed By: #### BMP, SCAN CBC #### [place] [address] USAPlatelet MorphologyNormalNormalNormalThe [facility] Physician GroupComment on above:Result Comment: PERFORMED BY: [place] [address] PATHOLOGIST JEWEL HOLE GAUGER DENILSON COSTA M.D.Performed By: #### BMP, SCAN CBC #### [facility] [address] [place] [address] USAPlatelets (Bld) [#/Vol]148 10*3/yMYil456-980Ezz [facility] Physician GroupComment on above:Performed By: #### BMP, SCAN CBC #### [facility] [address] [place] [address] USARBC (Bld) [#/Vol]3.01 10*6/uLLow3.60-5.00The [facility] Physician GroupComment on above:Performed By: #### BMP, SCAN CBC #### [place] [address] USAWBC (Bld) [#/Vol]19.7 10*3/uLHigh3.8-11.6The [facility] Physician GroupComment on above:Performed By: #### BMP, SCAN CBC #### [place] [address] USABasic Metabolic Panelon 30-40-6134Msqmk gap [Moles/Vol] 13.9 mmol/LNormal6.0-15.0The [facility] Physician GroupComment on above:Performed By: #### DIFF CBC, BMP #### [place] [address] USACalcium [Mass/Vol]9.0 mg/dLNormal8.6-10.3The [facility] Physician GroupComment on above:Performed By: #### DIFF CBC, BMP #### [place] [address] USAChloride [Moles/Vol]90 mmol/YJgu90-080Ols [facility] Physician GroupComment on above:Performed By: #### DIFF CBC, BMP #### [place] [address] USACO2 [Moles/Vol]28.1 mmol/DArvgaw49.0-31.0The [facility] Physician GroupComment on above:Performed By: #### DIFF CBC, BMP #### [place] [address] USACreatinine [Mass/Vol]2.14 mg/dLInvalid Interpretation Code 0.60-1.20The [facility] Physician GroupComment on above:Performed By: #### DIFF CBC, BMP #### [place] [address] USACreatinine Clr Calc Jpqladpn90.93NormHoly Cross Hospital Physician GroupComment on above:Result Comment: PERFORMED BY: [place] [address] PATHOLOGIST JEWEL HOLE GAUGER DENILSON COSTA M.D.Performed By: #### DIFF CBC, BMP #### [place] [address] USAEstimated GFR25.724 mL/MinNoCount includes the [facility] Physician [facility] UnitComment on above:Performed By: #### DIFF CBC, BMP #### [place] [address] USAGlucose [Mass/Vol]85 mg/rKYykfsi67-965Cqr [facility] Physician GroupComment on above:Result Comment: Random Glucose Reference Range is dependent on time and content of last meal. Glucose of more than 200 mg/dL in a nonstressed, ambulatory subject supports the diagnosis of Diabetes Mellitus. ADA recommended reference rangePerformed By: #### DIFF CBC, BMP #### [place] [address] USAPotassium [Moles/Vol]4.0 mmol/LInvalid Interpretation Code 3.5-5.1The [facility] Physician GroupComment on above:Performed By: #### DIFF CBC, BMP #### [place] [address] USASodium [Moles/Vol]128 mmol/QPmn304-905Emz [facility] Physician GroupComment on above:Performed By: #### DIFF CBC, BMP #### [place] [address] USAUrea nitrogen [Mass/Vol]29 mg/dLInvalid Interpretation Code7-25The [facility] Physician GroupComment on above:Performed By: #### DIFF CBC, BMP #### [facility] [address] [place] [address] USADiff and CBCon 91-29-0578Puukpgkpouzo Ql (Bld)SlightNormal The [facility] Physician GroupComment on above:Performed By: #### DIFF CBC, BMP #### [facility] [address] [place] [address] USABand form neutrophils/100 WBC (Bld)4 %Normal0-5The [facility] Physician GroupComment on above:Performed By: #### DIFF CBC, BMP #### [facility] [address] [place] [address] USABasophils/100 WBC (Bld)0 %Normal0-2The [facility] Physician GroupComment on above:Performed By: #### DIFF CBC, BMP #### [place] [address] USAEosinophils/100 WBC (Bld)0 %Low1-3The [facility] Physician GroupComment on above:Performed By: #### DIFF CBC, BMP #### [place] [address] USAErythrocyte distribution width (RBC) [Ratio]18.8 %High 11.9-15.3The [facility] Physician GroupComment on above:Performed By: #### DIFF CBC, BMP #### [place] [address] USAHematocrit (Bld) [Volume fraction]28.3 %Low34.0-46.4The [facility] Physician GroupComment on above:Performed By: #### DIFF CBC, BMP #### [facility] [address] [place] [address] USAHemoglobin (Bld) [Mass/Vol]9.5 g/dLLow11.8-15.4The [facility] Physician GroupComment on above:Performed By: #### DIFF CBC, BMP #### [place] [address] USALymphocytes/100 WBC (Bld)6 %Ybr32-94Ood [facility] Physician GroupComment on above:Performed By: #### DIFF CBC, BMP #### [address] (RBC) [Entitic mass]29.9 qbYohzeu13.7-34.3The [facility] Physician GroupComment on above:Performed By: #### DIFF CBC, BMP #### [address] (RBC) [Entitic vol]88.9 wSLxsptz71-884Tgp [facility] Physician GroupComment on above:Performed By: #### DIFF CBC, BMP #### [place] [address] USAMean Corpuscular HGB Conc33.6 g/iISbmpgf51.0-35.0The [facility] Physician GroupComment on above:Performed By: #### DIFF CBC, BMP #### [place] [address] USAMonocytes/100 WBC (Bld)9 %Normal2-11The [facility] Physician GroupComment on above:Performed By: #### DIFF CBC, BMP #### [place] [address] USAPlatelet EstimateNormalNormalNormHoly Cross Hospital Physician GroupComment on above:Performed By: #### DIFF CBC, BMP #### [place] [address] USAPlatelet mean volume (Bld) [Entitic vol]8.2 fLNormal 6.3-10.7The [facility] Physician GroupComment on above:Performed By: #### DIFF CBC, BMP #### [place] [address] USAPlatelet MorphologyNormalNormalNormHoly Cross Hospital Physician GroupComment on above:Result Comment: PERFORMED BY: [place] [address] PATHOLOGIST JEWEL HOLE GAUGER DENILSON COSTA M.D.Performed By: #### DIFF CBC, BMP #### [facility] [address] [place] [address] USAPlatelets (Bld) [#/Vol]165 10*3/rMGgnujq805-789Axq [facility] Physician GroupComment on above:Performed By: #### DIFF CBC, BMP #### [place] [address] USARBC (Bld) [#/Vol]3.18 10*6/uLLow3.60-5.00The [facility] Physician GroupComment on above:Performed By: #### DIFF CBC, BMP #### [place] [address] USARBC morphology finding Nom (Bld)NormalNormalNormalThe [facility] Physician GroupComment on above:Performed By: #### DIFF CBC, BMP #### [place] [address] USASegmented neutrophils/100 WBC (Bld)81 %Knna52-95Srs [facility] Physician GroupComment on above:Performed By: #### DIFF CBC, BMP #### [place] [address] USAWBC (Bld) [#/Vol]40.8 10*3/uLHigh3.8-11.6The [facility] Physician GroupComment on above:Performed By: #### DIFF CBC, BMP #### [place] [address] USAComprehensive Metabolic Panelon 07-33-2935Nezivtd [Mass/Vol]3.6 g/dLNormal3.5-5.7The [facility] Physician GroupComment on above: Performed By: #### BMP, DIFF CBC #### [place] [address] USAAlbumin/Globulin [Mass ratio]1.2 {ratio}NormalThe [facility] Physician GroupComment on above:Performed By: #### BMP, DIFF CBC #### [place] [address] USAALP [Catalytic activity/Vol]36 U/UOxyvuh64-240Efq [facility] Physician GroupComment on above:Performed By: #### BMP, DIFF CBC #### [facility] [address] [place] [address] USAALT [Catalytic activity/Vol]14 U/LNormal7-52The [facility] Physician GroupComment on above:Performed By: #### BMP, DIFF CBC #### [facility] [address] [place] [address] USAAnion gap [Moles/Vol]17.0 mmol/LHigh6.0-15.0The [facility] Physician GroupComment on above:Performed By: #### BMP, DIFF CBC #### [facility] [address] [place] [address] USAAST [Catalytic activity/Vol]25 U/CMugixl94-78Nvu [facility] Physician GroupComment on above:Performed By: #### BMP, DIFF CBC #### [place] [address] USABilirubin [Mass/Vol]1.8 mg/dLHigh0.3-1.0The [facility] Physician GroupComment on above:Result Comment: Samples from patients who have taken Naproxen have shown spurious elevation in Total Bilirubin levels. A metabolite of Naproxen, O-desmethylnaproxen, has been shown to interfere with the Jenvalenciaik-Kleverf method for measuring Total Bilirubin.Performed By: #### BMP, DIFF CBC #### [facility] [address] [place] [address] USACalcium [Mass/Vol]9.3 mg/dLNormal8.6-10.3The [facility] Physician GroupComment on above:Performed By: #### BMP, DIFF CBC #### [facility] [address] [place] [id number] USAChloride [Moles/Vol]90 mmol/IGcj15-917Izd [facility] Physician GroupComment on above:Performed By: #### BMP, DIFF CBC #### [facility] [address] [place] [address] USACO2 [Moles/Vol]21.8 mmol/PKzgrxp88.0-31.0The [facility] Physician GroupComment on above:Performed By: #### BMP, DIFF CBC #### [facility] [address] [place] [address] USACreatinine [Mass/Vol]3.88 mg/dLHigh0.60-1.20The [facility] Physician GroupComment on above:Performed By: #### BMP, DIFF CBC #### [facility] [address] [place] [address] USACreatinine Clr Calc Tkrjnmfb55.25NoCount includes the [facility] Physician GroupComment on above:Result Comment: PERFORMED BY: [facility] [address] [place] [address] PATHOLOGIST JEWEL HOLE GAUGER DENILSON COSTA M.D.Performed By: #### BMP, DIFF CBC #### [place] [address] USAEstimated GFR12.596 mL/MinNoCount includes the [facility] Physician [facility] UnitComment on above:Performed By: #### BMP, DIFF CBC #### [facility] [address] [place] [address] USAGlobulin (S) [Mass/Vol]3.0 g/dLNoCount includes the [facility] Physician GroupComment on above:Performed By: #### BMP, DIFF CBC #### [place] [address] USAGlucose [Mass/Vol]82 mg/sJAwnfjp56-273Uby [facility] Physician GroupComment on above:Result Comment: Random Glucose Reference Range is dependent on time and content of last meal. Glucose of more than 200 mg/dL in a nonstressed, ambulatory subject supports the diagnosis of Diabetes Mellitus. ADA recommended reference rangePerformed By: #### BMP, DIFF CBC #### [facility] [facility] [address] [place] [address] USAPotassium [Moles/Vol]5.8 mmol/LHigh3.5-5.1The [facility] Physician GroupComment on above:Performed By: #### BMP, DIFF CBC #### [place] [address] USAProtein [Mass/Vol]6.6 g/dLNormal6.4-8.9The [facility] Physician GroupComment on above:Performed By: #### BMP, DIFF CBC #### [place] [address] USASodium [Moles/Vol]123 mmol/LOff scale mdf080-859Wbv [facility] Physician GroupComment on above:Result Comment: Critical Result Called to and read back by: DANNY NOLAND at: 09/18/2024 05:03:31 by:HARPERPerformed By: #### BMP, DIFF CBC #### [place] [address] USAUrea nitrogen [Mass/Vol]59 mg/dLHigh7-25The [facility] Physician GroupComment on above:Performed By: #### BMP, DIFF CBC #### [place] [address] USAScan and CBCon 71-89-1857Mqwlqugczmaq Ql (Bld)Moderate NormalThe [facility] Physician GroupComment on above:Performed By: #### BMP, DIFF CBC #### [place] [address] USABasophils (Bld) [#/Vol]0.1 10*3/uLNormal0.0-0.2The [facility] Physician GroupComment on above:Performed By: #### BMP, DIFF CBC #### [place] [address] USABasophils/100 WBC (Bld)0.1 %Normal.The [facility] Physician GroupComment on above:Performed By: #### BMP, DIFF CBC #### [place] [address] USAEosinophils (Bld) [#/Vol]0.1 10*3/uLNormal0.0-0.45The [facility] Physician GroupComment on above:Performed By: #### BMP, DIFF CBC #### [place] [address] USAEosinophils/100 WBC (Bld)0.3 %Normal.The [facility] Physician GroupComment on above:Performed By: #### BMP, DIFF CBC #### [facility] [address] [place] [address] USAErythrocyte distribution width (RBC) [Ratio]19.5 %High 11.9-15.3The [facility] Physician GroupComment on above:Performed By: #### BMP, DIFF CBC #### [facility] [address] [place] [address] USAHematocrit (Bld) [Volume fraction]28.1 %Low34.0-46.4The [facility] Physician GroupComment on above:Performed By: #### BMP, DIFF CBC #### [place] [address] USAHemoglobin (Bld) [Mass/Vol]9.4 g/dLLow11.8-15.4The [facility] Physician GroupComment on above:Performed By: #### BMP, DIFF CBC #### [place] [address] USALymphocytes (Bld) [#/Vol]0.6 10*3/uLLow1.00-4.8The [facility] Physician GroupComment on above:Performed By: #### BMP, DIFF CBC #### [place] [address] USALymphocytes/100 WBC (Bld)1.8 %Normal.The [facility] Physician GroupComment on above:Performed By: #### BMP, DIFF CBC #### [place] [address] USAMCH (RBC) [Entitic mass]30.0 jfTxmubp54.7-34.3The [facility] Physician GroupComment on above:Performed By: #### BMP, DIFF CBC #### [place] [address] USAMCV (RBC) [Entitic vol]89.9 zJPznvrd32-867Kpp [facility] Physician GroupComment on above:Performed By: #### BMP, DIFF CBC #### [place] [address] USAMean Corpuscular HGB Conc33.3 g/zKRemblg52.0-35.0The [facility] Physician GroupComment on above:Performed By: #### BMP, DIFF CBC #### [place] [address] USAMonocytes (Bld) [#/Vol]2.6 10*3/uLHigh0.0-0.8The [facility] Physician GroupComment on above:Performed By: #### BMP, DIFF CBC #### [place] [address] USAMonocytes/100 WBC (Bld)7.3 %Normal.The [facility] Physician GroupComment on above:Performed By: #### BMP, DIFF CBC #### [place] [address] USANeutrophils (Bld) [#/Vol]31.9 10*3/uLHigh1.8-7.7The [facility] Physician GroupComment on above:Performed By: #### BMP, DIFF CBC #### [place] [address] USANeutrophils/100 WBC (Bld)90.5 %Normal.The [facility] Physician GroupComment on above:Performed By: #### BMP, DIFF CBC #### [place] [address] USANRBC%0.0 /100{WBC}Normal0-0.5The [facility] Comment on above:Performed By: #### BMP, DIFF CBC #### [place] [address] USAPlatelet EstimateNormalNormalNormHoly Cross Hospital Physician GroupComment on above:Performed By: #### BMP, DIFF CBC #### [place] [address] USAPlatelet mean volume (Bld) [Entitic vol]7.9 fLNormal 6.3-10.7The [facility] Physician GroupComment on above:Performed By: #### BMP, DIFF CBC #### [place] [address] USAPlatelet MorphologyNormalNormalNormHoly Cross Hospital Physician GroupComment on above:Result Comment: PERFORMED BY: [place] [address] PATHOLOGIST JEWEL HOLE GAUGER DENILSON COSTA M.D.Performed By: #### BMP, DIFF CBC #### [place] [address] USAPlatelets (Bld) [#/Vol]153 10*3/sELyltwh036-055Jbz [facility] Physician GroupComment on above:Performed By: #### BMP, DIFF CBC #### [place] [address] USARBC (Bld) [#/Vol]3.13 10*6/uLLow3.60-5.00The [facility] Physician GroupComment on above:Performed By: #### BMP, DIFF CBC #### [place] [address] USAWBC (Bld) [#/Vol]35.3 10*3/uLHigh3.8-11.6The [facility] Physician GroupComment on above:Performed By: #### BMP, DIFF CBC #### [place] [address] USAABO/Rh Retypeon 30-75-8567FCS/RH Recheck ResultPositive NormalThe [facility] Physician GroupComment on above:Result Comment: PERFORMED BY: [place] [address] PATHOLOGIST JEWEL HOLE GAUGER DENILSON COSTA M.D.Basic Metabolic Panelon 14-98-2589Wbpqh gap [Moles/Vol]14.2 mmol/LNormal6.0-15.0The [facility] Physician GroupComment on above:Performed By: #### BMP, DIFF CBC #### [place] [address] USACalcium [Mass/Vol]8.8 mg/dLNormal8.6-10.3The [facility] Physician GroupComment on above:Performed By: #### BMP, DIFF CBC #### [place] [address] USAChloride [Moles/Vol]91 mmol/FKtl35-411Lyu [facility] Physician GroupComment on above:Performed By: #### BMP, DIFF CBC #### [facility] [address] [place] [address] USACO2 [Moles/Vol]25.7 mmol/ZGfxsik63.0-31.0The [facility] Physician GroupComment on above:Performed By: #### BMP, DIFF CBC #### [facility] [address] [place] [address] USACreatinine [Mass/Vol]3.49 mg/dLHigh0.60-1.20The [facility] Physician GroupComment on above:Performed By: #### BMP, DIFF CBC #### [place] [address] USACreatinine Clr Calc Stqudhee63.85NoCount includes the [facility] Physician [facility] Care UnitComment on above:Result Comment: PERFORMED BY: [place] [address] PATHOLOGIST JEWEL HOLE GAUGER DENILSON COSTA M.D.Performed By: #### BMP, DIFF CBC #### [place] [address] USAEstimated GFR14.303 mL/MinNoCount includes the [facility] Physician [facility] Care UnitComment on above:Performed By: #### BMP, DIFF CBC #### [place] [address] USAGlucose [Mass/Vol]64 mg/iTRft64-711Ayh [facility] Physician GroupComment on above:Result Comment: Random Glucose Reference Range is dependent on time and content of last meal. Glucose of more than 200 mg/dL in a nonstressed, ambulatory subject supports the diagnosis of Diabetes Mellitus. ADA recommended reference rangePerformed By: #### BMP, DIFF CBC #### [place] [address] USAPotassium [Moles/Vol]4.9 mmol/LNormal3.5-5.1The [facility] Physician GroupComment on above:Performed By: #### BMP, DIFF CBC #### [place] [address] USASodium [Moles/Vol]126 mmol/CAtj312-178Ntd [facility] Physician GroupComment on above:Performed By: #### BMP, DIFF CBC #### [place] [address] USAUrea nitrogen [Mass/Vol]43 mg/dLHigh7-25The [facility] Physician GroupComment on above:Performed By: #### BMP, DIFF CBC #### [place] [address] USABlood Cultureon 18-85-6401Gobdwwvg identified Cx Nom (Bld) NO GROWTH 5 DAYS PERFORMED BY: [address] [place] [address] PATHOLOGIST JEWEL HOLE GAUGER DENILSON COSTA M.D.NormalThe [facility] Physician GroupComment on above: Performed By: #### BMP, DIFF CBC #### [place] [address] USACT abdomen pelvis w conon 40-91-4632YB abdomen pelvis w [facility] [place] [address] [place] [address] CT Scan Report Signed Patient: Orestes Alvares MR#: [id number] : 1965 Acct:[id number] Age/Sex: 59 / F ADM Date: 09/17/24 Loc: Room: [address] [place] [address] Type: DIS IN Attending Dr: Rosalinda Alfonso [...] Bunch M.D. 09/17/2024 11:11 AM Dictation Location: [place] [address] Transcribed By: [facility] 09/17/24 1111 Dictated By: Zhen Bunch DO 09/17/24 1102 Signed By: 09/17/24 1111NoCount includes the [facility] Physician [facility] Care UnitClostridium Difficileon 40-76-5581Uwvqtvlpeqb DifficileNegativeNormalNegativeThe [facility] Physician GroupComment on above:Order Comment: > or = to 3 loose/watery stools in the last 24 HRS? Y Is patient on promotility agents or tube feeding? NResult Comment: Testing performed by RT-PCR PERFORMED BY: [place] [address] PATHOLOGIST JEWEL HOLE GAUGER DENILSON COSTA M.D.Performed By: #### BMP, DIFF CBC #### [facility] [address] [place] [address] USAComprehensive Metabolic Panelon 74-27-2329Fmelcbu [Mass/Vol]3.3 g/dLLow3.5-5.7The [facility] Physician GroupComment on above: Performed By: #### CUU #### [place] [address] USAAlbumin/Globulin [Mass ratio]1.3 {ratio}NormalThe [facility] Physician GroupComment on above:Performed By: #### CUU #### [place] [address] USAALP [Catalytic activity/Vol]32 U/BOrf00-452Qla [facility] Physician GroupComment on above:Performed By: #### CUU #### [place] [address] USAALT [Catalytic activity/Vol]13 U/LNormal7-52The [facility] Physician GroupComment on above:Performed By: #### CUU #### [place] [address] USAAnion gap [Moles/Vol]13.8 mmol/LNormal6.0-15.0The [facility] Physician GroupComment on above:Performed By: #### CUU #### [place] [address] USAAST [Catalytic activity/Vol]23 U/EJugiug12-56Vyv [facility] Physician GroupComment on above:Performed By: #### CUU #### [place] [address] USABilirubin [Mass/Vol]0.7 mg/dLNormal0.3-1.0The [facility] Physician GroupComment on above:Performed By: #### CUU #### [place] [address] USACalcium [Mass/Vol]8.8 mg/dLNormal8.6-10.3The [facility] Physician GroupComment on above:Performed By: #### CUU #### [place] [address] USAChloride [Moles/Vol]91 mmol/ZNon48-637Fth [facility] Physician GroupComment on above:Performed By: #### CUU #### [place] [address] USACO2 [Moles/Vol]26.6 mmol/SNxzlmt36.0-31.0The [facility] Physician GroupComment on above:Performed By: #### CUU #### [place] [address] USACreatinine [Mass/Vol]3.57 mg/dLHigh0.60-1.20The [facility] Physician GroupComment on above:Performed By: #### CUU #### [place] [address] USACreatinine Clr Calc Ppsxqxna76.49NormHoly Cross Hospital Physician GroupComment on above:Result Comment: PERFORMED BY: [place] [address] PATHOLOGIST JEWEL HOLE GAUGER DENILSON COSTA M.D.Performed By: #### CUU #### [place] [address] USAEstimated GFR13.919 mL/MinNoCount includes the [facility] Physician [facility] UnitComment on above:Performed By: #### CUU #### [place] [address] USAGlobulin (S) [Mass/Vol]2.5 g/dLNoCount includes the [facility] Physician [facility] Care UnitComment on above:Performed By: #### CUU #### [place] [address] USAGlucose [Mass/Vol]72 mg/qOEsjgvm09-532Ltl [facility] Physician GroupComment on above:Result Comment: Random Glucose Reference Range is dependent on time and content of last meal. Glucose of more than 200 mg/dL in a nonstressed, ambulatory subject supports the diagnosis of Diabetes Mellitus. ADA recommended reference rangePerformed By: #### CUU #### [place] [address] USAPotassium [Moles/Vol]5.4 mmol/LHigh3.5-5.1The [facility] Physician GroupComment on above:Performed By: #### CUU #### [place] [address] USAProtein [Mass/Vol]5.8 g/dLLow6.4-8.9The [facility] Physician GroupComment on above:Performed By: #### CUU #### [place] [address] USASodium [Moles/Vol]126 mmol/JDkd648-404Knc [facility] Physician GroupComment on above:Performed By: #### CUU #### [facility] [address] [place] [address] USAUrea nitrogen [Mass/Vol]49 mg/dLHigh7-25The [facility] Physician GroupComment on above:Performed By: #### CUU #### [place] [address] USACortisolon 86-83-0865Qkeozsil42.3 ug/dLNormalThe [facility] Physician GroupComment on above:Result Comment: Reference range: AM 6 - 24 ug/dl PM <10 ug/dl [facility] Laboratory clinical education specialist and method: ELIZABETH UNICEL DXI, POLYCLONAL ANTIBODY CORTISOL ASSAY. PERFORMED BY: [place] [address] PATHOLOGIST JEWEL HOLE GAUGER DENILSON COSTA M.D.Performed By: #### CUU #### [place] [address] USADiff and CBCon 52-69-2272Wkjkuxtrjfzq Ql (Bld)Moderate NormalThe [facility] Physician GroupComment on above:Performed By: #### CUU #### [place] [address] USABand form neutrophils/100 WBC (Bld)28 %High0-5The [facility] Physician GroupComment on above:Performed By: #### CUU #### [place] [address] USAErythrocyte distribution width (RBC) [Ratio]19.5 %High 11.9-15.3The [facility] Physician GroupComment on above:Performed By: #### CUU #### [place] [address] USAHematocrit (Bld) [Volume fraction]20.3 %Low34.0-46.4The [facility] Physician GroupComment on above:Performed By: #### CUU #### [facility] [address] [place] [address] USAHemoglobin (Bld) [Mass/Vol]6.6 g/dLLow11.8-15.4The [facility] Physician GroupComment on above:Performed By: #### CUU #### [facility] [address] [place] [address] USALymphocytes/100 WBC (Bld)2 %Knz57-59Bfs [facility] Physician GroupComment on above:Performed By: #### CUU #### [facility] [address] [place] [address] USAMCH (RBC) [Entitic mass]30.2 ryIlsdud46.7-34.3The [facility] Physician GroupComment on above:Performed By: #### CUU #### [facility] [address] [place] [address] USAMCV (RBC) [Entitic vol]92.7 zMFwnpjk84-614Vww [facility] Physician GroupComment on above:Performed By: #### CUU #### [place] [address] USAMean Corpuscular HGB Conc32.6 g/jTMuisdd66.0-35.0The [facility] Physician GroupComment on above:Performed By: #### CUU #### [facility] [address] [place] [address] USAMetamyelocytes4 %High0-0The [facility]ician Group Comment on above:Performed By: #### CUU #### [place] [address] USAMonocytes/100 WBC (Bld)7 %Normal2-11The [facility] Physician GroupComment on above:Performed By: #### CUU #### [place] [address] USAPlatelet EstimateNormalNormalNormalThe [facility] Physician GroupComment on above:Performed By: #### CUU #### [place] [address] USAPlatelet mean volume (Bld) [Entitic vol]7.2 fLNormal 6.3-10.7The [facility] Physician GroupComment on above:Performed By: #### CUU #### [place] [address] USAPlatelet MorphologyNormalNormalNoCount includes the [facility] Physician GroupComment on above:Result Comment: PERFORMED BY: [place] [address] PATHOLOGIST JEWEL HOLE GAUGER DENILSON COSTA M.D.Performed By: #### CUU #### [place] [address] USAPlatelets (Bld) [#/Vol]177 10*3/lRMgprhy306-739Pdv [facility] Physician GroupComment on above:Performed By: #### CUU #### [place] [address] USARBC (Bld) [#/Vol]2.19 10*6/uLLow3.60-5.00The [facility] Physician GroupComment on above:Performed By: #### CUU #### [place] [address] USASegmented neutrophils/100 WBC (Bld)60 %Vfyjqe91-71Tdz [facility] Physician GroupComment on above:Performed By: #### CUU #### [place] [address] USAToxic VacuolationSlightNoCount includes the [facility] Physician Group Comment on above:Performed By: #### CUU #### [place] [address] USAWBC (Bld) [#/Vol]29.0 10*3/uLHigh3.8-11.6The [facility] Physician GroupComment on above:Performed By: #### CUU #### [place] [address] USAAnisocytosis Ql (Bld)ModerateNoUniversity Hospitals Samaritan Medical Centere [facility] Physician GroupComment on above:Performed By: #### BMP, DIFF CBC #### [facility] [address] [place] [address] USABand form neutrophils/100 WBC (Bld)16 %High0-5The [facility] Physician GroupComment on above:Performed By: #### BMP, DIFF CBC #### [place] [address] USAErythrocyte distribution width (RBC) [Ratio]19.1 %High 11.9-15.3The [facility] Physician GroupComment on above:Performed By: #### BMP, DIFF CBC #### [place] [address] USAHematocrit (Bld) [Volume fraction]20.7 %Low34.0-46.4The [facility] Physician GroupComment on above:Performed By: #### BMP, DIFF CBC #### [place] [address] USAHemoglobin (Bld) [Mass/Vol]6.8 g/dLLow11.8-15.4The [facility] Physician GroupComment on above:Performed By: #### BMP, DIFF CBC #### [place] [address] USALymphocytes/100 WBC (Bld)4 %Nwj31-62Etl [facility] Physician GroupComment on above:Performed By: #### BMP, DIFF CBC #### [place] [address] USAMCH (RBC) [Entitic mass]30.5 zkUosejx07.7-34.3The [facility] Physician GroupComment on above:Performed By: #### BMP, DIFF CBC #### [place] [address] USAMCV (RBC) [Entitic vol]92.9 hOSnzbxe53-062Wry [facility] Physician GroupComment on above:Performed By: #### BMP, DIFF CBC #### [place] [address] USAMean Corpuscular HGB Conc32.9 g/lUMmhozx09.0-35.0The [facility] Physician GroupComment on above:Performed By: #### BMP, DIFF CBC #### [place] [address] USAMetamyelocytes4 %High0-0The [facility]ician Group Comment on above:Performed By: #### BMP, DIFF CBC #### [place] [address] USAMonocytes/100 WBC (Bld)5 %Normal2-11The [facility] Physician GroupComment on above:Performed By: #### BMP, DIFF CBC #### [place] [address] USAPlatelet EstimateNormalNormalNormHoly Cross Hospital Physician GroupComment on above:Performed By: #### BMP, DIFF CBC #### [place] [address] USAPlatelet mean volume (Bld) [Entitic vol]7.5 fLNormal 6.3-10.7The [facility] Physician GroupComment on above:Performed By: #### BMP, DIFF CBC #### [place] [address] USAPlatelet MorphologyNormalNormalNormParkview Healthe [facility] Physician GroupComment on above:Result Comment: PERFORMED BY: [place] [address] PATHOLOGIST JEWEL HOLE GAUGER DENILSON COSTA M.D.Performed By: #### BMP, DIFF CBC #### [place] [address] USAPlatelets (Bld) [#/Vol]203 10*3/gVTqtsit431-940Lnx [facility] Physician GroupComment on above:Performed By: #### BMP, DIFF CBC #### [place] [address] USARBC (Bld) [#/Vol]2.22 10*6/uLLow3.60-5.00The [facility] Physician GroupComment on above:Performed By: #### BMP, DIFF CBC #### [place] [address] USASegmented neutrophils/100 WBC (Bld)73 %Dzfc98-55Bpz [facility] Physician [facility] Care UnitComment on above:Performed By: #### BMP, DIFF CBC #### [facility] [address] [place] [address] USAWBC (Bld) [#/Vol]25.3 10*3/uLHigh3.8-11.6The [facility] Physician [facility] Care UnitComment on above:Performed By: #### BMP, DIFF CBC #### [facility] [address] [place] [id number] USAECG 12 lead ECGon 65-62-8440BQY 12 lead ECGPROM[facility] [place] [address] [place] [address] Electrocardiograph Report Signed Patient: Orestes Alvares MR#: [id number] : 1965 Acct:[id number] Age/Sex: 59 / F ADM Date: 09/17/24 Loc: Room: [address] [place] [address] Type: ADM IN Attending Dr: Natalie Pak [...] replaced Atrial flutter Confirmed by LUCINA BLAIR [facility], [place] ([id number]) on 09/18/2024 4:08:51 PM Referred By: Electronically Signed By: KYLAH VERDUGO MD [facility] Transcribed By: MUS Signed By Kylah Verdugo MD, FACC 09/18/24 1608NoCount includes the [facility] Physician GroupGastrointestinal Profile, PCRon 40-41-3074Wrerzypkfk F 40/41Not detectedNormalNot DetectedThe [facility] Physician [facility] UnitComment on above:Order Comment: SOURCE OF SPECIMEN: stool Performed By: #### BMP, DIFF CBC #### [facility] [address] [place] [address] USAAstrovirusNot detectedNormalNot DetectedThe [facility] HospitalComment on above:Order Comment: SOURCE OF SPECIMEN: stool Performed By: #### BMP, DIFF CBC #### [facility] [address] [place] [address] USAC Difficile Toxin A/BNot detectedNormalNot DetectedThe [facility] HospitalComment on above:Order Comment: SOURCE OF SPECIMEN: stoolPerformed By: #### BMP, DIFF CBC #### [facility] [address] [place] [address] USACampylobacterNot detectedNormalNot DetectedThe [facility] HospitalComment on above:Order Comment: SOURCE OF SPECIMEN: stool Performed By: #### BMP, DIFF CBC #### [facility] [address] [place] [address] USACryptosporidiumNot detectedNormalNot DetectedThe [facility] HospitalComment on above:Order Comment: SOURCE OF SPECIMEN: stool Performed By: #### BMP, DIFF CBC #### [facility] [address] [place] [address] USACyclospora cayetanensisNot detectedNormalNot DetectedThe [facility] Physician [facility] UnitComment on above:Order Comment: SOURCE OF SPECIMEN: stoolPerformed By: #### BMP, DIFF CBC #### [facility] [address] [place] [address] USAE coli G356Tqs applicableNormalNot DetectedThe [facility] Physician [facility] UnitComment on above:Order Comment: SOURCE OF SPECIMEN: stool Performed By: #### BMP, DIFF CBC #### [facility] [address] [place] [address] USAEntamoeba histolyticaNot detectedNormalNot DetectedThe [facility] HospitalComment on above:Order Comment: SOURCE OF SPECIMEN: stoolPerformed By: #### BMP, DIFF CBC #### [facility] [address] [place] [address] USAEnteroaggregative E coliNot detectedNormalNot DetectedThe [facility] Physician [facility] UnitComment on above:Order Comment: SOURCE OF SPECIMEN: stoolPerformed By: #### BMP, DIFF CBC #### [facility] [address] [place] [address] USAEnteropathogenic E coliNot detectedNormalNot DetectedThe [facility] HospitalComment on above:Order Comment: SOURCE OF SPECIMEN: stoolPerformed By: #### BMP, DIFF CBC #### [facility] [address] [place] [address] USAEnterotoxigenic E coliNot detectedNormalNot DetectedThe [facility] HospitalComment on above:Order Comment: SOURCE OF SPECIMEN: stoolPerformed By: #### BMP, DIFF CBC #### [address] [address] USAGiardia lambliaNot detectedNormalNot DetectedThe [facility] HospitalCommclaren bay special care hospital on above:Order Comment: SOURCE OF SPECIMEN: stool Performed By: #### BMP, DIFF CBC #### [address] [address] USANorovirus GI/GIINot detectedNormalNot DetectedThe [facility] HospitalComment on above:Order Comment: SOURCE OF SPECIMEN: stoolPerformed By: #### BMP, DIFF CBC #### [address] [address] USAPlesiomonas shigelloidesNot detectedNormalNot DetectedThe [facility] HospitalComment on above:Order Comment: SOURCE OF SPECIMEN: stoolPerformed By: #### BMP, DIFF CBC #### [address] [address] USARotavirus ANot detectedNormalNot DetectedThe [facility] HospitalComment on above:Order Comment: SOURCE OF SPECIMEN: stool Performed By: #### BMP, DIFF CBC #### [facility] [address] [place] [address] USASalmonellaNot detectedNormalNot DetectedThe [facility] HospitalComment on above:Order Comment: SOURCE OF SPECIMEN: stool Performed By: #### BMP, DIFF CBC #### [place] [facility] [address] [place] [address] USASapovirusNot detectedNormalNot DetectedThe Mercy Philadelphia HospitalComment on above:Order Comment: SOURCE OF SPECIMEN: stoolResult Comment: Performed at: - Lab[address], [place], [place] [id number] Chief Solution Architect: Meli Bishop MD, Phone: [phone] PERFORMED BY: [place] [address] PATHOLOGIST JEWEL HOLE GAUGER DENILSON COSTA M.D.Performed By: #### BMP, DIFF CBC #### [place] [id number] RCGYwths-howxj-vjlaukyqt E coliNot detectedNormalNot Detected The [facility] Physician [facility] UnitComment on above:Order Comment: SOURCE OF SPECIMEN: stoolPerformed By: #### BMP, DIFF CBC #### [place] [address] USAShigella/Enteroinvasive E coliNot detectedNormalNot DetectedThe [facility] Physician [facility] UnitComment on above:Order Comment: SOURCE OF SPECIMEN: stoolPerformed By: #### BMP, DIFF CBC #### [place] [id number] USAVibrioNot detectedNormalNot DetectedThe [facility] Physician [facility] UnitComment on above:Order Comment: SOURCE OF SPECIMEN: stool Performed By: #### BMP, DIFF CBC #### [place] [id number] USAVibrio choleraeNot detectedNormalNot DetectedThe [facility] Physician [facility] UnitComment on above:Order Comment: SOURCE OF SPECIMEN: stool Performed By: #### BMP, DIFF CBC #### [place] [id number] USAYersinia enterocoliticaNot detectedNormalNot DetectedThe [facility] Physician [facility] Care UnitComment on above:Order Comment: SOURCE OF SPECIMEN: stoolPerformed By: #### BMP, DIFF CBC #### [place] [id number] USAGlucose Poct Glucometerson 11-92-7738Oyeclhs8Qyz6: Cleaned MeterNormalThe [facility] Physician [facility] Care UnitComment on above:Result Comment: PERFORMED BY: [place] [address] PATHOLOGIST JEWEL HOLE GAUGER DENILSON COSTA M.D.Performed By: #### BMP, DIFF CBC #### [place] [address] USAGlucose [Mass/Vol]109 mg/dLNoCount includes the [facility] Physician GroupComment on above:Result Comment: Random Glucose Reference Range is dependent on time and content of last meal. Glucose of more than 200 mg/dL in a nonstressed, ambulatory subject supports the diagnosis of Diabetes Mellitus.Performed By: #### BMP, DIFF CBC #### [place] [address] USAGlucose [Mass/Vol]81 mg/dLNoCount includes the [facility] Physician GroupComment on above:Result Comment: Random Glucose Reference Range is dependent on time and content of last meal. Glucose of more than 200 mg/dL in a nonstressed, ambulatory subject supports the diagnosis of Diabetes Mellitus. PERFORMED BY: [place] [address] PATHOLOGIST JEWEL HOLE GAUGER DENILSON COSTA M.D.Performed By: #### BMP, DIFF CBC #### [place] [address] USAGlucose [Mass/Vol]105 mg/dLNoCount includes the [facility] Physician GroupComment on above:Result Comment: Random Glucose Reference Range is dependent on time and content of last meal. Glucose of more than 200 mg/dL in a nonstressed, ambulatory subject supports the diagnosis of Diabetes Mellitus. PERFORMED BY: [place] [address] PATHOLOGIST JEWEL HOLE GAUGER DENILSON COSTA M.D.Performed By: #### BMP, DIFF CBC #### [place] [address] USALactic Acidon 64-56-8519Lhjtnaz [Moles/Vol]2.4 mmol/LOff scale high0.5-1.9The [facility] Physician GroupComment on above:Result Comment: Critical Result : Called to and read back by: ANGELA TREJO at: 09/17/2024 10:11:42 by:KB Lactic Acid reference range has been updated to 0.5 ? 1.9 mmol/L and the critical range of 2.0 or greater. PERFORMED BY: [place] [address] PATHOLOGIST JEWEL HOLE GAUGER DENILSON COSTA M.D.Performed By: #### LACTIC #### [place] [address] USALactic Acid Reflexon 10-06-8976Hhyier Acid Reflex1.5 mmol/LNormal0.5-1.9The [facility] Physician GroupComment on above:Result Comment: Lactic Acid reference range has been updated to 0.5 ? 1.9 mmol/L and the critical range of 2.0 or greater. PERFORMED BY: [place] [address] PATHOLOGIST JEWEL HOLE GAUGER DENILSON COSTA M.D.Performed By: #### BMP, DIFF CBC #### [place] [address] USALeukoReduced RBCon 49-11-7338QeizjTwtkkox RBCTRANSFUSED 09/17/24 1003NoCount includes the [facility] Physician GroupType and Screenon 17-89-8076SJG and Rh group Nom (Bld)Blood group A Rh(D) positiveAdventHealth Waterman Physician GroupComment on above:Order Comment: Transfuse now? Y Number of units to transfuse now? 1 Transfuse now? Y Number of units to transfuse now? 1Result Comment: PERFORMED BY: [place] [address] PATHOLOGIST JEWEL HOLE GAUGER DENILSON COSTA M.D.XR chest 1V portableon 97-09-8854PX chest 1V portable [facility] Main [place] [address] [place] [address] XRay Report Signed Patient: Orestes Alvares MR#: [id number] : 1965 Acct:[id number] Age/Sex: 59 / F ADM Date: 09/17/24 Loc: Room: [address] [place] [address] Type: DIS IN Attending Dr: Rosalinda Alfonso [...] Bunch M.D. 09/17/2024 9:12 AM Dictation Location: [facility]16 Transcribed By: [facility] 09/17/24911 Dictated By: Zhen Bunch DO 09/17/24909 Signed By: 09/17/24911[facility] Physician GroupCT WRIST RT WO CONTon 09-16-2024 [...] Antoine Martinez MD on 09/16/2024 11:[address] [facility] HEMOGLOBINon 50-65-2959Upsutannsd (Bld) [Mass/Vol]6.9 g/dLCritically low12.0 - 16.0 g/dLNOAK HealthcareComment on above:RESULTS CALLED TO SÁNCHEZ RIVERA [facility] @BY Cristela Ewing at 2103 Interpretation and review of laboratory resultsAbnormalNOMS HealthcareCLINISYNC NOMS HealthcareCBC AND AUTO DIFFon 11-28-0979VWEQFZXE BASOPHIL0.0 X10E9/LNormal 0.0-0.2Pro[facility] HospitalComment on above:Performed By: #### CBCA CMP, , 2776-04 ####[facility] ([id number])[address], [address], [place] [address]HXZPCQVQ NEUTROPHIL7.3 X10E9/LHigh1.5-6.6ProDo[facility] Hospital HospitalComment on above:Performed By: #### CBCA, CMP, , 2776-04 ####[facility] ([id number])[address], [address], [place] [address]Rgbwrtyns/100 WBC (Bld)0.6 %NormalLake County Memorial Hospital - West HospitalComment on above:Performed By: #### CBCA, CMP, , 2776-04 ####[facility] ([id number])[address], [address], [place] [address]Ugmediictxa (Bld) [#/Vol]0.0 10*3/uLNormal0.0-0.4ProDoctors Hospital HospitalComment on above: Performed By: #### CBCA, CMP, , 2776-04 ####[facility] ([id number])[address], [address], [place] [address]Xdysmsupyti/100 WBC (Bld) 0.5 %NormalProMedica Lynn HospitalComment on above:Performed By: #### CBCA, CMP, , 2776-04 ####[facility] ([id number])[address], [address], [place] [address]Kqjuekbcwmw distribution width (RBC) [Ratio]18.3 %High11.5-15.0ProMedica Lynn HospitalComment on above:Performed By: #### CBCA, CMP, , 2776-04 ####[facility] ([id number])[address], [address], [place] [address]Jbzthtlkhx (Bld) [Volume fraction]23.7 %Low 35-47ProMedica Lynn HospitalComment on above:Performed By: #### CBCA, CMP, , 2776-04 ####[facility] ([id number])[address], [address], [place] [address]Wwrrughhyk (Bld) [Mass/Vol]7.8 g/dLLow11.7-15.5 [facility] HospitalComment on above:Performed By: #### CBCA, CMP, , 2776-04 ####[facility] ([id number])[address] [address], [place] [address]Ifxmutdqkyn (Bld) [#/Vol]0.6 10*3/uLLow1.0-3.5Pro[facility]ica [facility] HospitalComment on above:Performed By: #### CBCA, CMP, , 2776-04 ####[facility] ([id number])[address] [address], [place] [address]Uvmnfumcibv/100 WBC (Bld)7.7 %NormalProMedica Lynn HospitalComment on above:Performed By: #### CBCA, CMP, , 2776-04 ####[facility] ([id number])[address], [address], [place] [address]BKP (RBC) [Entitic mass]31.8 odXzbozd20-56QmlQhsblw Lynn HospitalComment on above:Performed By: #### CBCA, CMP, , 2776-04 ####[facility] ([id number])[address], [address], [place] [address]XIML (RBC) [Mass/Vol]32.8 g/gARnzjzv41-32UzsPydrqj Lynn HospitalComment on above:Performed By: #### CBCA, CMP, , 2776-04 ####[facility] ([id number])[address], [address], [place] [address]TOL (RBC) [Entitic vol]97 rJXrbjcc78-237 [facility] HospitalComment on above:Performed By: #### CBCA, CMP, , 2776-04 ####[facility] ([id number])[address], [address] [place] [address]Ncwwtmbio (Bld) [#/Vol]0.1 10*3/uLNormal0-0.9[facility] HospitalComment on above:Performed By: #### CBCA, CMP, , 2776-04 ####[facility] ([id number])[address], [address], [place] [address]Yeqroqiqa/100 WBC (Bld)1.2 %NormalProMedica Lynn HospitalComment on above:Performed By: #### CBCA, CMP, , 2776-04 ####[facility] ([id number])[address], [address], [place] [address]Gvktotdluyn/100 WBC (Bld)90.0 %NormalProMedica Lynn HospitalComment on above:Performed By: #### CBCA, CMP, , 2776-04 ####[facility] ([id number])[address], [address], [place] [address]Rbjiagmg mean volume (Bld) [Entitic vol]7.2 fLNormal7-12[facility] HospitalComment on above:Performed By: #### NAMITA CMP, , 2776-04 ####[facility] ([id number])[address], [address], [place] [address]Bajifbekd (Bld) [#/Vol]330 10*3/mOZdbice974-192 [facility] HospitalComment on above:Performed By: #### RENA BREAUX, , 2776-04 ####[facility] ([id number])[address] [address] [place] [address]YYL COUNT2.45 X10E12/LLow3.80-5.20[facility] Hospital Comment on above:Performed By: #### NAMITA CMP, , 2776-04 ####[facility] ([id number])[address] [address], [place] [address]NXI (Bld) [#/Vol]8.1 10*3/uLNormal4.0-11.0[facility] HospitalComment on above: Performed By: #### NAMITA CMP, , 2776-04 ####[facility] ([id number])[address], [address], [place] [address]NFYOUKELEDJZK METABOLIC PANELon 57-30-7382Vlrloym [Mass/Vol]4.2 g/dLNormal3.2-5.3ProMedOhioHealth [facility] HospitalComment on above:Performed By: #### NAMITA, CMP, , 2776-04 ####[facility] ([id number])[address] [address], [place] [address]YJM [Catalytic activity/Vol]60 U/WXyjrnn84-694VrxHmgpyu [facility] Comment on above:Performed By: #### RENA BREAUX, , 2776-04 ####[facility] ([id number])[address], [address], [place] [address]EBO [Catalytic activity/Vol]6 U/LNormal0-31[facility] HospitalComment on above:Performed By: #### NAMITA CMP, , 2776-04 ####[facility] ([id number])[address], [address], [place] [address]Rlonx gap [Moles/Vol]12 mmol/LNormal5-15[facility] HospitalComment on above:Performed By: #### RENA BREAUX, , 2776-04 ####[facility] ([id number])[address], [address], [place] [address]PYZ [Catalytic activity/Vol]9 U/LNormal0-41 [facility] HospitalComment on above:Performed By: #### RENA BREAUX, , 2776-04 ####[facility] ([id number])[address], [address], [place] [address]Qnmrmdulj [Mass/Vol]1.2 mg/dLNormal0.3-1.2ProMedOhioHealth Riverside Methodist Hospital HospitalComment on above:Performed By: #### NAMITA, CMP, , 2776-04 ####[facility] ([id number])[address], [address], [place] [address]Vbmqvzt [Mass/Vol]9.8 mg/dLNormal8.5-10.5ProMedOhioHealth Riverside Methodist Hospital HospitalComment on above:Performed By: #### NAMITA CMP, , 2776-04 ####[facility] ([id number])[address], [address], [place] [address]Tbffqgoy [Moles/Vol]100 mmol/HXglxhc32-170CawTkvxdm [facility] HospitalComment on above: Performed By: #### RENA BREAUX, , 2776-04 ####[facility] ([id number])[address], [address], [place] [address]UD8 [Moles/Vol]24 mmol/L Hzigap95-58AlkUteyit [facility] HospitalComment on above:Performed By: #### RENA BREAUX, , 2776-04 ####[facility] ([id number])[address], [address], [place] [address]Blggwsbzoh [Mass/Vol]2.02 mg/dLHigh0.40-1.00 [facility] HospitalComment on above:Result Comment: METHOD TRACEABLE TO IDMS STANDARDPerformed By: #### RENA BREAUX, , 2776-04 ####[facility] ([id number])[address] [address], [place] [address]FII/1.73 sq M.predicted among non-blacks MDRD (S/P/Bld) [Vol rate/Area]28 mL/min/{1.73_m2} Low>59Pro[facility] HospitalComment on above:Result Comment: Reported eGFR is based on theCKD-EPI 2020 equation that doesnot use a race coefficient.Performed By: #### RENA BREAUX, , 2776-04 ####[facility] ([id number])[address], [address], [place] [address]Ygsfbmo [Mass/Vol]131 mg/dL Pcpq22-45CsiBuqxdt [facility] HospitalComment on above:Performed By: #### RENA BREAUX, , 2776-04 ####[facility] ([id number])[address] [address], [place] [address]Htclrsumv [Moles/Vol]4.5 mmol/LNormal3.5-5.0ProGreene Memorial Hospitalca [facility] HospitalComment on above:Performed By: #### RENA BREAUX, , 2776-04 ####[facility] ([id number])[address], [address] [place] [address]Urfirne [Mass/Vol]7.4 g/dLNormal6.0-8.0ProGreene Memorial Hospitalca [facility] HospitalComment on above:Performed By: #### RENA BREAUX, , 2776-04 ####[facility] ([id number])[address], [address] [place] [address]Ovsejs [Moles/Vol]136 mmol/MEcdrcs681-170ZbiLausmj [place] HospitalComment on above: Performed By: #### RENA BREAUX, , 2776-04 ####[facility] ([id number])[address], [address] [place] [address]Bcqr nitrogen [Mass/Vol]32 mg/dLHigh5-27[facility] HospitalComment on above:Performed By: #### RENA BREAUX, , 2776-04 ####[facility] ([id number])[address], [address] [place] [address]JV [place] DIAL/CENT LINE > 5 YRSon 02-15-0053KH [place] DIAL/CENT LINE > 5 YRSNormalProKindred Hospital Lima MAGNESIUMon 55-46-1885Qqtgklyyg [Mass/Vol]2.1 mg/dLNormal1.8-2.6ProGreene Memorial Hospitalca [facility] HospitalComment on above:Performed By: #### RENA BREAUX, , 2776-04 ####[facility] ([id number])[address], [address] [place] [address]FVMMAKVSFHko 38-12-2153Kcjzceauc [Mass/Vol]3.6 mg/dLNormal2.4-4.9[facility] Lynn HospitalComment on above:Performed By: #### CBCA, CMP, 89190-6, 2777-1 ####[facility] ([id number])[address] [facility], [address], [place] [address]EH CHEST 1 VWon 85-07-0191BW CHEST 1 VWChristian HospitalalProGreene Memorial Hospitalca [facility] HospitalAFB CULTURE(CONCENTRATED)on 31-12-1906Ipplnsraafzog sp identified Org specific cx Nom (Unsp spec)AFB SMEAR NO ACID FAST BACILLI (CONCENTRATED SMEAR) CULTURE RESULTS NO ACID FAST BACILLI ISOLATED IN 8 WEEKSNormalProGreene Memorial Hospitalca [facility] HospitalComment on above:Performed By: #### 543-9 ####[facility] ([id number])[address], [address], [place] [address]GOAUZFOE BLOOD GASon 91-20-0058LCWEE'S TESTNormalProGreene Memorial Hospitalca [facility] HospitalComment on above:Performed By: #### ABG ####[facility] ([id number])[address] [place], [place] [address]IJWJ,DEFICIT4.0 MMOL/LHigh0.0-2.0ProGre[facility] Memorial Hospitalca [facility] HospitalComment on above:Performed By: #### ABG ####[facility] ([id number])[address] [place], [place] [address]Bqjb gfdqyxigcab78.6 [degF]Zpfoyl40.0[facility] HospitalComment on above:Performed By: #### ABG ####[facility] ([id number])[address] [place], [place] [address]FQB0 (Bld) [Moles/Vol]23.2 mmol/L Lgbuyg75-33SlgRtxdls [facility] HospitalComment on above:Performed By: #### ABG ####[facility] ([id number])[address] [place] [address] INSP. O2 CONC.28 %NormalProMedica Lynn HospitalComment on above:Performed By: #### ABG ####[facility] ([id number])[address] [place], [place] [address]Kygbsm (Bld) [Partial pressure]66 mm[Hg]Jaa43-152HhrMuexldKindred Hospital Lima Comment on above:Performed By: #### ABG ####[facility] ([id number])[address] [place], [place] [address]Oryisv saturation in Blood89.0 %Low >90ProKindred Hospital LimaComment on above:Performed By: #### ABG ####[facility] ([id number])[address] [place], [place] [address]DYATGX SOURCE NPPVNoalLima City HospitalComment on above:Performed By: #### ABG ####[facility] ([id number])[address] [place], [place] [address]BTL8 52.7 MTTUWoxn36-67XupNwgtyj [place] HospitalComment on above:Performed By: #### ABG ####[facility] ([id number])[address] [place] [address] pH (Bld)7.252 [pH]Low7.350-7.450ProKindred Hospital LimaComment on above: Performed By: #### ABG ####[facility] ([id number])[address] [place], [place] [address]ASBIYO SITERRadNormalProKindred Hospital LimaComment on above:Performed By: #### ABG ####[facility] ([id number])[address] [facility], [place] [address]UVXOFW TYPEARTERIALNormalLake County [facility] Comment on above:Performed By: #### ABG ####[facility] ([id number])[address] [facility], [place] [address]MN CELL CT AND DIFFon 07-02-2024 BODY FLUID COMMENT Interpretation--------NormalProGreene Memorial Hospitalca [facility] County HospitalComment on above:Result Comment: Reference values for this fluid type areundefined, as fluid accumulation isconsidered abnormal.Assorted lining cells present.Corrected on 07/03 AT 0544: Previously reported as Interpretation Reference values for this fluid type are undefined, as fluid accumulation is considered abnormal.Performed By: #### BFCT ####[facility] ([id number])[address], [address], [place] [address]RXHZA CLARITYHAZYNormal [facility]ica [facility] County HospitalComment on above:Performed By: #### BFCT ####[facility] ([id number])[address], [address], [place] [address]LUMYN COLORYELLOWNormalProKindred Hospital LimaComment on above:Performed By: #### BFCT ####[facility] ([id number])[address], [address] [place], [place] [address]HZQBG LYMPHOCYTE3 %NormalProKindred Hospital LimaComment on above:Performed By: #### BFCT ####[facility] ([id number])[address], [address], [place] [address]CEVHP FTXGRLCJBNN58 %NormalProKindred Hospital LimaComment on above:Performed By: #### BFCT ####[facility] ([id number])[address], [address], [place] [address]JNOEH RBC CT220 /uL NormalProGreene Memorial Hospitalca [facility] HospitalComment on above:Performed By: #### BFCT ####[facility] ([id number])[address], [address], [place] [address]HBNVQ SPECIMEN TYPEBRONCHOALVEOLAR LAVAGENormalLima City Hospital Comment on above:Result Comment: LEFTLUNG, LOWER LOBEPerformed By: #### BFCT ####[facility] ([id number])[address], [address], [place] [address]ZCEOGCSEACX16 %NormalProKindred Hospital LimaComment on above:Performed By: #### BFCT ####[facility] ([id number])[address], [address], [place] [address]EIECPHCAA CELL CT76 /uLNormalProKindred Hospital [facility]ima Comment on above:Performed By: #### BFCT ####[facility] ([id number])[address], [address], [place] [address]YNW AND AUTO DIFFon 28-96-7933YJDRQHUP BASOPHIL0.0 X10E9/LNormal0.0-0.2PC[facility] Comment on above:Performed By: #### CBCA, CMP, , 2776-04 ####[facility] ([id number])[address], [place] [address] ABSOLUTE NEUTROPHIL4.2 X10E9/LNormal1.5-6.6ProKindred Hospital LimaComment on above:Performed By: #### CBCA, CMP, , 2776-04 ####[facility] ([id number])[address], [address], [place] [address]Nqmvcvvpa/100 WBC (Bld)0.6 %NormalProDoctors Hospital HospitalComment on above:Performed By: #### CBCA, CMP, , 2776-04 ####[facility] ([id number])[address], [address], [place] [address]Tpjizwmmysu (Bld) [#/Vol]0.9 10*3/uLHigh 0.0-0.4ProKindred Hospital LimaComment on above:Performed By: #### CBCA, CMP, , 2776-04 ####[facility] ([id number])[address], [address], [place] [address]Nyvsurdowfp/100 WBC (Bld)12.5 %NormalProDoctors Hospital HospitalComment on above:Performed By: #### CBCChristiano CMP, , 2776-04 ####[facility] ([id number])[address], [address], [place] [address]Izhxynrcwrx distribution width (RBC) [Ratio]17.8 %High11.5-15.0Pro[facility]ctors Hospital HospitalComment on above:Performed By: #### CBCChristiano CMP, , 2776-04 ####[facility] ([id number])[address], [address], [place] [address]Sayysxwkce (Bld) [Volume fraction]23.1 %Oqf81-79HhiKojqon [facility] Comment on above:Performed By: #### CBCChristiano CMP, , 2776-04 ####[facility] ([id number])[address], [place] [address] Hemoglobin (Bld) [Mass/Vol]7.6 g/dLLow11.7-15.5PMer[facility] HospitalComment on above:Performed By: #### CBCChristiano CMP, , 2776-04 ####[facility] ([id number])[address] [address] [place] [address]Nfhynsefvjo (Bld) [#/Vol]1.2 10*3/uLNormal1.0-3.5PMercy Health [facility] HospitalComment on above: Performed By: #### CBCA, CMP, , 2776-04 ####[facility] ([id number])[address] [address], [place] [address]Gaymwfunxwu/100 WBC (Bld) 16.4 %NormalProDoctors Hospital HospitalComment on above:Performed By: #### CBCA, CMP, , 2776-04 ####[facility] ([id number])[address], [address], [place] [address]ZWO (RBC) [Entitic mass]31.4 jmQwvxjv66-81 [facility] HospitalComment on above:Performed By: #### CBCA, CMP, , 2776-04 ####[facility] ([id number])[address], [address], [place] [address]RFTM (RBC) [Mass/Vol]32.8 g/kINspvoi60-31ZwxTbubrj Lynn HospitalComment on above:Performed By: #### CBCChristiano, CMP, , 2776-04 ####[facility] ([id number])[address], [address] [place] [address]UIE (RBC) [Entitic vol]96 qJVvdspk68-210PtmHystbg Lynn HospitalComment on above:Performed By: #### CBCA, CMP, , 2776-04 ####[facility] ([id number])[address], [address] [place] [address]Fmwfaypqs (Bld) [#/Vol]0.7 10*3/uLNormal0-0.9[facility] HospitalComment on above:Performed By: #### CBCA, CMP, , 2776-04 ####[facility] ([id number])[address], [place] [address]Ciizjpfwm/100 WBC (Bld)10.4 %NormalProMedica Lynn HospitalComment on above:Performed By: #### CBCA, CMP, , 2776-04 ####[facility] ([id number])[address], [place] [address]Yizyscdwlfb/100 WBC (Bld)60.1 %NormalProMedica Lynn HospitalComment on above:Performed By: #### CBCChristiano, CMP, , 2776-04 ####[facility] ([id number])[address], [place] [address]Mvzqzegi mean volume (Bld) [Entitic vol]7.0 fLNormal7-12[facility] HospitalComment on above:Performed By: #### CBCA, CMP, , 2776-04 ####[facility] ([id number])[address], [place] [address]Mfctsmmot (Bld) [#/Vol]376 10*3/rSEhfxzu438-116YdnMqmcxw [facility] Comment on above:Performed By: #### NAMITA, CMP, , 2776-04 ####[facility] ([id number])[address], [address] [place] [address] 16536UIL COUNT2.42 X10E12/LLow3.80-5.20ProGre[facility] Hospitalca [facility] HospitalComment on above: Performed By: #### NAMITA, CMP, , 2776-04 ####[facility] ([id number])[address], [address] [place] [address] 22330GJJ (Bld) [#/Vol]7.1 10*3/uLNormal4.0-11.0ProGre[facility] Hospitalca [facility] HospitalComment on above:Performed By: #### CBCA, CMP, , 2776-04 ####[facility] ([id number])[address], [address], [place] [address]KSZZOPPFJYJDR METABOLIC PANELon 16-09-3677Yuncbnq [Mass/Vol]3.7 g/dLNormal3.2-5.3[facility] HospitalComment on above:Performed By: #### CBCA, CMP, , 2776-04 ####[facility] ([id number])[address], [address], [place] [address]THH [Catalytic activity/Vol]56 U/RQhrucs29-341HfdMhmvwz [facility] Comment on above:Performed By: #### RENA BREAUX, , 2776-04 ####[facility] ([id number])[address], [address], [place] [address]RBJ [Catalytic activity/Vol]5 U/LNormal0-31[facility] HospitalComment on above:Performed By: #### RENA BERAUX, , 2776-04 ####[facility] ([id number])[address], [address], [place] [address]Gubgl gap [Moles/Vol]14 mmol/LNormal5-15[facility] HospitalComment on above:Performed By: #### NAMITA CMP, , 2776-04 ####[facility] ([id number])[address], [address], [place] [address]KNB [Catalytic activity/Vol]8 U/LNormal0-41 [facility] HospitalComment on above:Performed By: #### NAMITA, CMP, , 2776-04 ####[facility] ([id number])[address], [address], [place] [address]Nvsfdeiva [Mass/Vol]1.0 mg/dLNormal0.3-1.2[facility] HospitalComment on above:Performed By: #### NAMITA, CMP, , 2776-04 ####[facility] ([id number])[address], [address], [place] [address]Pxtgykq [Mass/Vol]10.5 mg/dLNormal8.5-10.5ProMedOhio[facility] HospitalComment on above:Performed By: #### NAMITA, CMP, , 2776-04 ####[facility] ([id number])[address], [address], [place] [address]Jdfcizvy [Moles/Vol]105 mmol/GJaltba02-551FtnTdnypz [facility] HospitalComment on above: Performed By: #### RENA BREAUX, , 2776-04 ####[facility] ([id number])[address], [address], [place] [address]OM6 [Moles/Vol]25 mmol/L Rvmaxg88-73YdpOunmwk [facility] HospitalComment on above:Performed By: #### RENA BREAUX, , 2776-04 ####[facility] ([id number])[address], [address], [place] [address]Cngwufvadp [Mass/Vol]4.12 mg/dLHigh0.40-1.00 [facility] HospitalComment on above:Result Comment: METHOD TRACEABLE TO IDMS STANDARDPerformed By: #### RENA BREAUX, , 2776-04 ####[facility] ([id number])[address] [address], [place] [address]RXY/1.73 sq M.predicted among non-blacks MDRD (S/P/Bld) [Vol rate/Area]12 mL/min/{1.73_m2} Low>59[facility] HospitalComment on above:Result Comment: Reported eGFR is based on theCKD-EPI 2020 equation that doesnot use a race coefficient.Performed By: #### RENA BREAUX, , 2776-04 ####[facility] ([id number])[address], [address], [place] [address]Gznzldl [Mass/Vol]92 mg/dL Msomxy40-89TsiWajnnc [facility] HospitalComment on above:Performed By: #### RENA BREAUX, , 2776-04 ####[facility] ([id number])[address], [address], [place] [address]Zfwbetrxi [Moles/Vol]3.8 mmol/LNormal3.5-5.0 [facility] HospitalComment on above:Performed By: #### NAMITA, CMP, 78455-8, 2777-1 ####[facility] ([id number])[address], [address], [place] [address]Xpmrpzz [Mass/Vol]6.7 g/dLNormal6.0-8.0[facility] HospitalComment on above:Performed By: #### CBCChristiano, CMP, 46888-0, 2777-1 ####[facility] ([id number])[address], [address] [place] [address]Jlzrxa [Moles/Vol]144 mmol/JEfpggf172-437QngMfysos [place] HospitalComment on above:Performed By: #### NAMITA, CMP, , 2777-1 ####[facility] ([id number])[address], [address] [place] [address], [place] [address]Xoit nitrogen [Mass/Vol]80 mg/dLHigh5-27[facility] HospitalComment on above:Performed By: #### CBCA, CMP, , 2777-1 ####[facility] ([id number])[address], [address] [place] [address]Oxnhmgcwvm 07-02-2024 CytologyNormalProDoctors Hospital HospitalComment on above:Result Comment: [facility] [address] [place] [address] Cytology ConsultationPatient Name:ORESTES ALVARES:1965 (Age: 59)Gender:FTaken:07/02/2024Reported:07/03/2024 16:31Physician(s):Quintin Forman M.D. ([phone])Copy To: Rec. #:[id number]: #[id number] DiagnosisLung, left lower lobe, bronchoalveolar lavage:No malignant cells identified.ao07/03/2024Interpretation performed at [facility], [address] [place], [place] [address], License number: [id number].Electronically Signed Out By Earl Boone MDClinical HistoryMucus plug in respiratory tract [T17.998A]. Acute hypoxic respiratory failure ([facility]) [J96.01].Gross DescriptionReceived was 5ml of clear colorless fluid unfixed labeled as [place], lung, left lower lobe, BAL . CytoLyt added in lab. Unable to obtain cellblock, ThinPrep made.Source of Specimen Lung, left lower lobe, bronchoalveolar lavage Non [employer] ThinPrepFee Code(s):1; 33335AQEOYQ CULTUREon 22-21-1567Fptnae identified Cx Nom (Unsp spec)FUNGAL SMEAR NO FUNGAL ELEMENTS SEEN ON DIRECT SMEAR CULTURE RESULTS MABLE ALBICANSAbnormalProKindred Hospital LimaComment on above:Performed By: #### 580-1 ####[facility] ([id number])[address] [place] [address]EYHJA RESPIRATORY CULTUREon 02-84-3371Ntcdfmzg identified Respiratory culture Nom (Sput)SusceptibleProDoctors Hospital HospitalComment on above:Performed By: #### 624-7 ####[facility] ([id number])[address] [place] [address]ZKAWOVJEFcm 58-91-9420Lhyvfxsqw [Mass/Vol] 1.9 mg/dLNormal1.8-2.6ProKindred Hospital LimaComment on above:Performed By: #### CBCA, CMP, 37642-3, 2777-1 ####[facility] ([id number])[address] [place] [address]Drtflbpdq Ionized ISE (Bld) [Moles/Vol]on 75-06-4935Mfhozbkbg [Moles/Vol]0.71 mmol/LNormal0.45-0.74 [place] [facility] HospitalComment on above:Result Comment: NEW REFERENCE RANGE Performed By: #### 14068-9 ####[facility] ([id number])[address], [address] [place] [address]DMVYBDASEPyi 85-49-6309Lakcpgpqr [Mass/Vol] 5.2 mg/dLHigh2.4-4.9[facility] HospitalComment on above:Performed By: #### CBCA, CMP, 47935-8, 2777-1 ####[facility] ([id number])[address], [address] [place] [address]TUVOVFUVIeu 48-73-2375Dtlucwdpr [Moles/Vol] 4.2 mmol/LNormal3.5-5.0[place] [facility] HospitalComment on above:Performed By: #### 2823-3 ####[facility] ([id number])[address], [address] [place] [address]QKKULVE AND INRon 94-21-9841VZH Coag (PPP) [Relative time]1.2 {INR}Normal0.9-1.2PCleveland Clinic Euclid HospitalComment on above:Performed By: #### PINR ####[facility] ([id number])[address], [address] [place] [address]OI Coag (PPP) [Time]13.5 sHigh9.8-13.2PMercy Health Clermont Hospital HospitalComment on above:Performed By: #### PINR ####[facility] ([id number])[address], [address] [place] [address] 46201UU CHEST 1 VWon 94-35-8720XN CHEST 1 VWNormalProKindred Hospital LimaXR CHEST 1 VWNormal ProMAdena Regional Medical CenterCBC AND AUTO DIFFon 51-57-5075WZAVDWMM BASOPHIL0.1 X10E9/LNormal0.0-0.2[facility] HospitalComment on above:Performed By: #### CBCChristiano, CMP, , 2776-04 ####[facility] ([id number])[address], [address], [place] [address]JDAMDKLT NEUTROPHIL3.9 X10E9/LNormal1.5-6.6 [facility] HospitalComment on above:Performed By: #### CBCChristiano, CMP, , 2776-04 ####[facility] ([id number])[address], [address] [place] [address]Jrmdismuw/100 WBC (Bld)2.0 %NormalProDoctors Hospital Hospital Comment on above:Performed By: #### CBCChristiano, CMP, , 2776-04 ####[facility] ([id number])[address], [address] [place] [address] Eosinophils (Bld) [#/Vol]1.0 10*3/uLHigh0.0-0.4[facility] HospitalComment on above:Performed By: #### CBCA, CMP, , 2776-04 ####[facility] ([id number])[address], [address] [place] [address]Gwlommuzuyg/100 WBC (Bld)14.0 %NormalProDoctors Hospital HospitalComment on above:Performed By: #### CBCA, CMP, , 2776-04 ####[facility] ([id number])[address] [address] [place] [address]Lzoaqhvutnd distribution width (RBC) [Ratio]17.8 %High11.5-15.0Pro[facility] Hospital HospitalComment on above: Performed By: #### CBCA, CMP, , 2776-04 ####[facility] ([id number])[address], [address] [place], [place] [address]Zagklmfjzb (Bld) [Volume fraction]23.7 %Xpv85-25MelGtfzou [facility] HospitalComment on above:Performed By: #### CBCA, CMP, , 2776-04 ####[facility] ([id number])[address], [address] [place], [place] [address]Fhdvycopph (Bld) [Mass/Vol] 7.7 g/dLLow11.7-15.5[facility] [place] HospitalComment on above:Performed By: #### CBCA, CMP, , 2776-04 ####[facility] ([id number])[address], [address], [place] [address]Hlrtvqwwxjt (Bld) [#/Vol]1.4 10*3/uLNormal 1.0-3.5ProMedOhioHealth [facility] Hospital HospitalComment on above:Performed By: #### CBCA, CMP, , 2776-04 ####[facility] ([id number])[address], [address], [place] [address]Sgmidslcehx/100 WBC (Bld)19.6 %NormalProGreene Memorial Hospitalca [facility] HospitalComment on above:Performed By: #### CBCA, CMP, , 2776-04 ####[facility] ([id number])[address], [address], [place] [address]TJQ (RBC) [Entitic mass]31.1 ciWtwqbb42-22UdmLyztad [facility] HospitalComment on above:Performed By: #### CBCA, CMP, , 2776-04 ####[facility] ([id number])[address], [address], [place] [address]QGDN (RBC) [Mass/Vol]32.5 g/vRMukvrc27-25ZkvHvccox [facility] HospitalComment on above: Performed By: #### CBCA, CMP, , 2776-04 ####[facility] ([id number])[address], [address], [place] [address]ZIR (RBC) [Entitic vol]96 aGQozzus70-490WxaRkrgqk [facility] HospitalComment on above:Performed By: #### CBCA, CMP, , 2776-04 ####[facility] ([id number])[address], [address], [place] [address]Smnwziewf (Bld) [#/Vol]0.6 10*3/uLNormal0-0.9 [facility] HospitalComment on above:Performed By: #### CBCA, CMP, , 2776-04 ####[facility] ([id number])[address], [address], [place] [address]Phuiujahk/100 WBC (Bld)8.8 %NormalProGreene Memorial Hospitalca [facility] Comment on above:Performed By: #### CBCA, CMP, , 2776-04 ####[facility] ([id number])[address], [address] [place] [address] Neutrophils/100 WBC (Bld)55.6 %NormalProMedica [place] HospitalComment on above: Performed By: #### CBCA, CMP, , 2776-04 ####[facility] ([id number])[address], [address], [place] [address]Mbdnfgsn mean volume (Bld) [Entitic vol]6.9 fLLow7-12[facility] HospitalComment on above:Performed By: #### CBCA, CMP, , 2776-04 ####[facility] ([id number])[address], [address] [place], [place] [address]Ykfjyqhyv (Bld) [#/Vol]417 10*3/bMUiukeo481-376OieGldypx [facility] HospitalComment on above:Performed By: #### CBCChristiano, CMP, , 2776-04 ####[facility] ([id number])[address], [address] [place] [address]DSR COUNT2.47 X10E12/LLow3.80-5.20[facility] HospitalComment on above:Performed By: #### CBCA, CMP, , 2776-04 ####[facility] ([id number])[address], [address] [place] [address]YKO (Bld) [#/Vol]7.1 10*3/uLNormal4.0-11.0ProGre[facility] Hospitalca [facility] HospitalComment on above:Performed By: #### NAMITA, CMP, , 2776-04 ####[facility] ([id number])[address], [address] [place] [address]PCMKGIVAKIYKA METABOLIC PANELon 06-17-6147Pusxldh [Mass/Vol]3.7 g/dLNormal3.2-5.3[facility] HospitalComment on above:Performed By: #### NAMITA, CMP, , 2776-04 ####[facility] ([id number])[address], [address] [place] [address]TUR [Catalytic activity/Vol]61 U/MNhakjt18-724KmbHgwhqt [facility] Comment on above:Performed By: #### CBCA, CMP, , 2776-04 ####[facility] ([id number])[address] [address] [place] [address]MSG [Catalytic activity/Vol]4 U/LNormal0-31ProMedOhio[facility] HospitalComment on above:Performed By: #### CBCA, CMP, , 2776-04 ####[facility] ([id number])[address], [address], [place] [address]Whejf gap [Moles/Vol]16 mmol/LHigh5-15[facility] HospitalComment on above:Performed By: #### RENA BREAUX, , 2776-04 ####[facility] ([id number])[address], [address], [place] [address]BNC [Catalytic activity/Vol]10 U/LNormal0-41 [facility] HospitalComment on above:Performed By: #### RENA BREAUX, , 2776-04 ####[facility] ([id number])[address], [address], [place] [address]Hknooifkz [Mass/Vol]1.1 mg/dLNormal0.3-1.2[facility] HospitalComment on above:Performed By: #### RENA BREAUX, , 2776-04 ####[facility] ([id number])[address], [address], [place] [address]Ochrlkm [Mass/Vol]10.6 mg/dLHigh8.5-10.5ProMedbibb medical center [facility] HospitalComment on above:Performed By: #### RENA BREAUX, , 2776-04 ####[facility] ([id number])[address], [address], [place] [address]Sqmwivxd [Moles/Vol]106 mmol/BGqiqla10-939IgoBenvps [facility] HospitalComment on above: Performed By: #### RENA BREAUX, , 2776-04 ####[facility] ([id number])[address], [address], [place] [address]BY9 [Moles/Vol]22 mmol/L Srfome63-12XutXecann [facility] HospitalComment on above:Performed By: #### NAMITA CMP, 2776-04 ####[facility] ([id number])[address], [place] [address]Whednlkzih [Mass/Vol]3.99 mg/dLHigh0.40-1.00 ProMOhioHealth [facility] HospitalComment on above:Result Comment: METHOD TRACEABLE TO IDMS STANDARDPerformed By: #### RENA BREAUX, , 2776-04 ####[facility] ([id number])[address] [address], [place] [address]LEX/1.73 sq M.predicted among non-blacks MDRD (S/P/Bld) [Vol rate/Area]12 mL/min/{1.73_m2} Low>59[facility] HospitalComment on above:Result Comment: Reported eGFR is based on theCKD-EPI 2020 equation that doesnot use a race coefficient.Performed By: #### RENA BREAUX, , 2776-04 ####[facility] ([id number])[address] [address] [place] [address]Seevxvx [Mass/Vol]76 mg/dL Wwgtid12-73JgnRbutso [place] HospitalComment on above:Performed By: #### RENA BREAUX, 2776-04 ####[facility] ([id number])[address], [address] [place] [address]Iytlwjzph [Moles/Vol]4.0 mmol/LNormal3.5-5.0 ProMOhioHealth [facility] HospitalComment on above:Performed By: #### RENA BREAUX, 2776-04 ####[facility] ([id number])[address] [address]Nlgpove [Mass/Vol]6.9 g/dLNormal6.0-8.0ProGreene [facility] Hospitalca [place] HospitalComment on above:Performed By: #### RENA BREAUX, 2776-04 ####[facility] ([id number])[address] [address] [place] [address]Egozjt [Moles/Vol]144 mmol/CLhrskx213-523ScxZirdtx [place] HospitalComment on above:Performed By: #### RENA BREAUX, , 2776-04 ####[facility] ([id number])[address], [address] [place] [address]14[address]Dkjc nitrogen [Mass/Vol]83 mg/dLHigh5-27[facility] HospitalComment on above:Performed By: #### RENA BREAUX, , 2776-04 ####[facility] ([id number])[address] [address]Gcoeacy.ionized (Bld) [Mass/Vol]on 80-22-3709NNQEFPF CALCIUM5.6 mg/dLHigh4.5-5.3[facility] [place] HospitalComment on above:Performed By: #### 27051-3, 46378-5 ####[facility] ([id number])[address] [address]KD SWALLOW MOTILITY FUNCTIONon 04-46-1792VK SWALLOW MOTILITY FUNCTIONNormalProKindred Hospital LimaMAGNESIUMon 00-35-4718Aennbmama [Mass/Vol]2.1 mg/dLNormal1.8-2.6 [facility] HospitalComment on above:Performed By: #### RENA BREAUX, , 2776-04 ####[facility] ([id number])[address] [address]Tvxjrhzrg Ionized ISE (Bld) [Moles/Vol]on 42-80-5008Jccusiril [Moles/Vol]0.48 mmol/LNormal0.45-0.74[facility] HospitalComment on above: Result Comment: NEW REFERENCE RANGEPerformed By: #### 37527-1, 28565-4 ####[facility] ([id number])[address], [place] [address]NJLGHNUEOYzr 12-35-3996Vfcairyot [Mass/Vol]5.3 mg/dLHigh2.4-4.9[facility] HospitalComment on above:Performed By: #### CBCA, CMP, , 2776-04 ####[facility] ([id number])[address], [address] [place] [address]EE CHEST 1 VWon 82-13-4255SS CHEST 1 VWNormalProKindred Hospital LimaCBC AND AUTO DIFFon 30-97-7209XNANVRVS BASOPHIL0.1 X10E9/LNormal0.0-0.2ProMedCincinnati VA Medical CenterComment on above:Performed By: #### CBCA, CMP, , 2776-04 ####[facility] ([id number])[address], [address] [place] [address]AUUFQWUX NEUTROPHIL3.9 X10E9/LNormal1.5-6.6[facility] Comment on above:Performed By: #### CBCA, CMP, , 2776-04 ####[facility] ([id number])[address], [address] [place] [address] Basophils/100 WBC (Bld)0.8 %NormalProDoctors Hospital HospitalComment on above: Performed By: #### CBCA, CMP, , 2776-04 ####[facility] ([id number])[address], [address] [place] [address]Ypscxxsstyz (Bld) [#/Vol] 0.9 10*3/uLHigh0.0-0.4ProKindred Hospital LimaComment on above:Performed By: #### CBCA, CMP, , 2776-04 ####[facility] ([id number])[address], [place] [address]Pqztyfnomkt/100 WBC (Bld) 13.3 %NormalProMedica Lynn HospitalComment on above:Performed By: #### CBCA, CMP, , 1 ####[facility] ([id number])[address], [place] [address]Buwmjtigsyp distribution width (RBC) [Ratio]18.3 %High11.5-15.0ProMedica [facility] HospitalComment on above:Performed By: #### CBCA, CMP, , 2776-04 ####[facility] ([id number])[address], [place] [address]Bdpqttodtu (Bld) [Volume fraction]22.7 %Low 35-47ProMedica [facility] HospitalComment on above:Performed By: #### CBCA, CMP, , 2776-04 ####[facility] ([id number])[address], [place] [address]Dqucslpdym (Bld) [Mass/Vol]7.5 g/dLLow11.7-15.5 [facility] Lynn HospitalComment on above:Performed By: #### CBCA, CMP, , 2776-04 ####[facility] ([id number])[address], [address], [place] [address]Pfymhrirccw (Bld) [#/Vol]1.2 10*3/uLNormal1.0-3.5ProMedica Lynn HospitalComment on above:Performed By: #### CBCA, CMP, , 2776-04 ####[facility] ([id number])[address], [address], [place] [address]Gtwaswqxcej/100 WBC (Bld)18.2 %NormalProMedica Lynn HospitalComment on above:Performed By: #### CBCA, CMP, , 2776-04 ####[facility] ([id number])[address], [address] [place] [address]PAK (RBC) [Entitic mass]31.5 nfYbgjux28-63VyoRlftaw Lynn HospitalComment on above:Performed By: #### CBCA, CMP, , 2776-04 ####[facility] ([id number])[address], [address] [place] [address]KOPY (RBC) [Mass/Vol]32.9 g/aYIqybgo06-47UciDxvehl Lynn HospitalComment on above:Performed By: #### CBCA, CMP, , 2776-04 ####[facility] ([id number])[address], [address] [place] [address] 79699YFQ (RBC) [Entitic vol]96 xUZfgnwc70-782 [facility] Lynn HospitalComment on above:Performed By: #### CBCA, CMP, , 2776-04 ####[facility] ([id number])[address], [address] [place] [address]673Cbfnhhjvx (Bld) [#/Vol]0.8 10*3/uLNormal0-0.9Pro[facility] Lynn HospitalComment on above:Performed By: #### CBCA, CMP, , 2776-04 ####[facility] ([id number])[address], [address] [place] [address]Ddjcxmabr/100 WBC (Bld)11.2 %NormalProMedica Lynn HospitalComment on above:Performed By: #### CBCA, CMP, , 2776-04 ####[facility] ([id number])[address], [address] [place] [address]Dqxbnxxinfr/100 WBC (Bld)56.5 %NormalProDoctors Hospital HospitalComment on above:Performed By: #### CBCChristiano, CMP, , 2776-04 ####[facility] ([id number])[address], [address] [place] [address]40[address]Tpvwizqr mean volume (Bld) [Entitic vol]6.8 fLLow7-12PMer[facility] HospitalComment on above:Performed By: #### CBCA, CMP, , 2776-04 ####[facility] ([id number])[address], [address] [place] [address]Qibpgcfvk (Bld) [#/Vol]443 10*3/gAScaqxb724-001 [facility] HospitalComment on above:Performed By: #### CBCChristiano, CMP, , 2776-04 ####[facility] ([id number])[address], [address] [place] [address]HRF COUNT2.37 X10E12/LLow3.80-5.20[facility] Hospital Comment on above:Performed By: #### CBCChristiano, CMP, , 2776-04 ####[facility] ([id number])[address], [address] [place] [address]SDL (Bld) [#/Vol]6.9 10*3/uLNormal4.0-11.0[facility] HospitalComment on above: Performed By: #### CBCA, CMP, , 2776-04 ####[facility] ([id number])[address], [address] [place] [address]JMFFSECRVSFOX METABOLIC PANELon 22-23-7544Nabpkjm [Mass/Vol]3.9 g/dLNormal3.2-5.3PMercy Health [facility] HospitalComment on above:Performed By: #### CBCA, CMP, , 2776-04 ####[facility] ([id number])[address], [address], [place] [address]NEL [Catalytic activity/Vol]60 U/HHtipky38-714ZsvKskuhw [place] [facility] Comment on above:Performed By: #### NAMITA CMP, , 2776-04 ####[facility] ([id number])[address], [address], [place] [address]TNL [Catalytic activity/Vol]5 U/LNormal0-31[facility]MedOhio[facility] HospitalComment on above:Performed By: #### RENA BREAUX, , 2776-04 ####[facility] ([id number])[address], [address] [address], [place] [address]Crqwx gap [Moles/Vol]13 mmol/LNormal5-15[facility] HospitalComment on above:Performed By: #### RENA BREAUX, , 2776-04 ####[facility] ([id number])[address], [address], [place] [address]IAF [Catalytic activity/Vol]11 U/LNormal0-41 [facility] HospitalComment on above:Performed By: #### RENA BREAUX, , 2776-04 ####[facility] ([id number])[address], [address], [place] [address]Bnspxipgj [Mass/Vol]1.0 mg/dLNormal0.3-1.2[facility] HospitalComment on above:Performed By: #### NAMITA CMP, , 2776-04 ####[facility] ([id number])[address], [address], [place] [address]Euxhisj [Mass/Vol]10.5 mg/dLNormal8.5-10.5[facility] HospitalComment on above:Performed By: #### RENA BREAUX, , 2776-04 ####[facility] ([id number])[address], [address], [place] [address]Fqsvxgdd [Moles/Vol]103 mmol/AGdzrqf81-317ZloZtddqq [facility] HospitalComment on above: Performed By: #### RENA BREAUX, , 2776-04 ####[facility] ([id number])[address], [address], [place] [address]GB3 [Moles/Vol]25 mmol/L Wqzvdf11-46NpgVvzpoi [facility] HospitalComment on above:Performed By: #### RENA BREAUX, , 2776-04 ####[facility] ([id number])[address], [address] [place] [address]Lsnpnrvktj [Mass/Vol]3.76 mg/dLHigh0.40-1.00 [facility] HospitalComment on above:Result Comment: METHOD TRACEABLE TO IDMS STANDARDPerformed By: #### RENA BREAUX, , 2776-04 ####[facility] ([id number])[address], [address] [place] [address]MAB/1.73 sq M.predicted among non-blacks MDRD (S/P/Bld) [Vol rate/Area]13 mL/min/{1.73_m2} Low>59[facility] HospitalComment on above:Result Comment: Reported eGFR is based on theCKD-EPI 2020 equation that doesnot use a race coefficient.Performed By: #### RENA BREAUX, , 2776-04 ####[facility] ([id number])[address], [address], [place] [address]Uoelnnr [Mass/Vol]90 mg/dL Tmrycb06-70MalHkjcbp [facility] HospitalComment on above:Performed By: #### RENA BREAUX, , 2776-04 ####[facility] ([id number])[address], [address], [place] [address]Tqimeswfl [Moles/Vol]3.8 mmol/LNormal3.5-5.0 [facility] HospitalComment on above:Performed By: #### RENA BREAUX, , 2776-04 ####[facility] ([id number])[address], [address], [place] [address]Ctlhhtu [Mass/Vol]7.1 g/dLNormal6.0-8.0[facility] HospitalComment on above:Performed By: #### RENA BREAUX, , 2776-04 ####[facility] ([id number])[address], [address], [place] [address]Ocfebq [Moles/Vol]141 mmol/DWdujct240-850WtdAadwhp Lynn HospitalComment on above:Performed By: #### RENA BREAUX, , 2776-04 ####[facility] ([id number])[address], [address], [place] [address]Hnbl nitrogen [Mass/Vol]84 mg/dLHigh5-27[facility] HospitalComment on above:Performed By: #### RENA BREAUX, , 2776-04 ####[facility] ([id number])[address], [address], [place] [address]QAKRLSGHVdk 06-30-2024 Magnesium [Mass/Vol]2.2 mg/dLNormal1.8-2.6[facility] HospitalComment on above:Performed By: #### RENA BREAUX, , 2776-04 ####[facility] ([id number])[address], [address], [place] [address]YKPEUDWFRMpi 79-75-5829Esrdjmzac [Mass/Vol]5.2 mg/dLHigh2.4-4.9[facility] Comment on above:Performed By: #### CBCChristiano, CMP, , 2777-1 ####[facility] ([id number])[address], [address] [place] [address] POTASSIUMon 86-00-3252Wenrpjelj [Moles/Vol]4.6 mmol/LNormal3.5-5.0[facility] HospitalComment on above:Performed By: #### 2823-3 ####[facility] ([id number])[address], [address] [place] [address]XA CHEST 1 VWon 26-93-7073PZ CHEST 1 VWNormalProKindred Hospital LimaCBC AND AUTO DIFFon 73-55-3335THWYCYPY BASOPHIL0.1 X10E9/LNormal0.0-0.2[facility] Comment on above:Performed By: #### CBCChristiano, CMP, , 2776-04 ####[facility] ([id number])[address], [address] [place] [address] ABSOLUTE NEUTROPHIL4.3 X10E9/LNormal1.5-6.6[place] [facility] HospitalComment on above:Performed By: #### CBCChristiano, CMP, , 277-1 ####[facility] ([id number])[address], [address] [place] [address]Viymyjumu/100 WBC (Bld)0.7 %NormalProKindred Hospital LimaComment on above:Performed By: #### CBCA, CMP, , 2777-1 ####[facility] ([id number])[address], [address] [place] [address]Rxjpfokoidi (Bld) [#/Vol]0.9 10*3/uLHigh 0.0-0.4ProKindred Hospital LimaComment on above:Performed By: #### CBCA, CMP, , 2776-04 ####[facility] ([id number])[address] [address], [place] [address]Zqwuzbqhtzr/100 WBC (Bld)12.6 %NormalProKindred Hospital LimaComment on above:Performed By: #### CBCA, CMP, , 2776-04 ####[facility] ([id number])[address] [address] [place] [address]Muhnhoqrsnu distribution width (RBC) [Ratio]17.5 %High11.5-15.0Pro[facility]red Hospital LimaComment on above:Performed By: #### CBCA, CMP, , 2776-04 ####[facility] ([id number])[address] [address]Xwhoyapdjr (Bld) [Volume fraction]21.9 %Xml87-34NotNcmlve [facility] Comment on above:Performed By: #### CBCA, CMP, , 2776-04 ####[facility] ([id number])[address] [address], [place] [address] Hemoglobin (Bld) [Mass/Vol]7.4 g/dLLow11.7-15.5[facility]uclid HospitalComment on above:Performed By: #### CBCA, CMP, , 2776-04 ####[facility] ([id number])[address] [address] [place] [address]Yvtlgqsecnb (Bld) [#/Vol]1.4 10*3/uLNormal1.0-3.5PC[facility]uclid HospitalComment on above: Performed By: #### CBCA, CMP, , 2776-04 ####[facility] ([id number])[address] [address], [place] [address]Laczxxcohhj/100 WBC (Bld) 18.9 %NormalProMedica Lynn HospitalComment on above:Performed By: #### CBCA, CMP, , 2776-04 ####[facility] ([id number])[address], [address], [place] [address]SLW (RBC) [Entitic mass]32.0 llPgevyf82-91 [facility] HospitalComment on above:Performed By: #### CBCA, CMP, , 2776-04 ####[facility] ([id number])[address], [address] [place] [address]UFLL (RBC) [Mass/Vol]33.6 g/qYZofvub91-96JavTqsoon Lynn HospitalComment on above:Performed By: #### CBCA, CMP, , 2776-04 ####[facility] ([id number])[address], [address] [place] [address]QMF (RBC) [Entitic vol]95 jQXnwhqw55-576FrrVbjcxq Lynn HospitalComment on above:Performed By: #### CBCA, CMP, , 2776-04 ####[facility] ([id number])[address] [address] [place] [address]Fjbcicbfy (Bld) [#/Vol]0.7 10*3/uLNormal0-0.9[facility] HospitalComment on above:Performed By: #### CBCA, CMP, , 2776-04 ####[facility] ([id number])[address] [address] [place] [address]Efsngwmzy/100 WBC (Bld)9.5 %NormalProMedica Lynn HospitalComment on above:Performed By: #### CBCA, CMP, , 2776-04 ####[facility] ([id number])[address], [address], [place] [address]Awbmjpiuwyl/100 WBC (Bld)58.3 %NormalProGreene Memorial Hospitalca [facility] HospitalComment on above:Performed By: #### CBCChristiano CMP, , 2776-04 ####[facility] ([id number])[address], [address] [place] [address]Iflnysux mean volume (Bld) [Entitic vol]6.8 fLLow7-12[facility] HospitalComment on above:Performed By: #### CBCChristiano CMP, , 2776-04 ####[facility] ([id number])[address], [address] [place] [address]Frqosmntz (Bld) [#/Vol]458 10*3/jTZipp265-982GrcXtmlzb [facility] Comment on above:Performed By: #### NAMITA CMP, , 2776-04 ####[facility] ([id number])[address], [address] [place] [address]DLP COUNT2.30 X10E12/LLow3.80-5.20ProGre[facility] Hospitalca [facility] HospitalComment on above: Performed By: #### CBCChristiano, CMP, , 2776-04 ####[facility] ([id number])[address] [address] [place] [address]WVP (Bld) [#/Vol]7.3 10*3/uLNormal4.0-11.0ProGreene [facility] Hospitalca [facility] HospitalComment on above:Performed By: #### CBCChristiano, CMP, , 2776-04 ####[facility] ([id number])[address], [address] [place] [address]WDRFNZHCJVDQO METABOLIC PANELon 10-18-6763Topfuqo [Mass/Vol]3.8 g/dLNormal3.2-5.3[facility] HospitalComment on above:Performed By: #### NAMITA CMP, , 2776-04 ####[facility] ([id number])[address], [address], [place] [address]LEC [Catalytic activity/Vol]66 U/NDycnwi07-372AuuIefejl [place] [facility] Comment on above:Performed By: #### NAMITA CMP, , 2776-04 ####[facility] ([id number])[address], [address], [place] [address]BOE [Catalytic activity/Vol]5 U/LNormal0-31[facility] HospitalComment on above:Performed By: #### NAMITA, CMP, , 2776-04 ####[facility] ([id number])[address], [address], [place] [address]Nycvm gap [Moles/Vol]15 mmol/LNormal5-15[facility] HospitalComment on above:Performed By: #### NAMITA CMP, , 2776-04 ####[facility] ([id number])[address], [address], [place] [address]FRJ [Catalytic activity/Vol]11 U/LNormal0-41 [facility] [place] [facility] HospitalComment on above:Performed By: #### NAMITA CMP, , 2776-04 ####[facility] ([id number])[address], [address], [place] [address]Wqhntddsm [Mass/Vol]0.9 mg/dLNormal0.3-1.2[facility] HospitalComment on above:Performed By: #### NAMITA, CMP, , 2776-04 ####[facility] ([id number])[address], [address], [place] [address]Mlwlsbb [Mass/Vol]10.2 mg/dLNormal8.5-10.5[facility] HospitalComment on above:Performed By: #### RENA BREAUX, , 2776-04 ####[facility] ([id number])[address], [address], [place] [address]Fpgcwdke [Moles/Vol]103 mmol/EIudjpy69-664DkzFhayfo [place] HospitalComment on above: Performed By: #### RENA BREAUX, , 2776-04 ####[facility] ([id number])[address], [address], [place] [address]BT6 [Moles/Vol]23 mmol/L Dtgyig18-50PsqAujyobCleveland Clinic Euclid HospitalComment on above:Performed By: #### RENA BREAUX, , 2776-04 ####[facility] ([id number])[address], [address], [place] [address]Fwcgkgyvhz [Mass/Vol]3.65 mg/dLHigh0.40-1.00 [facility] [place] [facility] HospitalComment on above:Result Comment: METHOD TRACEABLE TO IDMS STANDARDPerformed By: #### RENA BREAUX, , 2776-04 ####[facility] ([id number])[address], [address], [place] [address]BPQ/1.73 sq M.predicted among non-blacks MDRD (S/P/Bld) [Vol rate/Area]14 mL/min/{1.73_m2} Low>59[facility] HospitalComment on above:Result Comment: Reported eGFR is based on theCKD-EPI 2020 equation that doesnot use a race coefficient.Performed By: #### RENA BREAUX, , 2776-04 ####[facility] ([id number])[address], [address], [place] [address]Euggbzw [Mass/Vol]101 mg/dL Ipub87-79HrwQasvge [place] HospitalComment on above:Performed By: #### RENA BREAUX, , 2776-04 ####[facility] ([id number])[address], [address] [place] [address]Chgxmrqnk [Moles/Vol]3.6 mmol/LNormal3.5-5.0[facility] HospitalComment on above:Performed By: #### RENA BREAUX, , 2776-04 ####[facility] ([id number])[address], [address], [place] [address]Wtfcddr [Mass/Vol]6.8 g/dLNormal6.0-8.0[facility] HospitalComment on above:Performed By: #### RENA BREAUX, , 2776-04 ####[facility] ([id number])[address], [address] [place] [address]Nadreb [Moles/Vol]141 mmol/IZnaeyv183-686WixAjfxht [place] HospitalComment on above: Performed By: #### RENA BREAUX, , 2776-04 ####[facility] ([id number])[address], [address] [place] [address]Rijz nitrogen [Mass/Vol]76 mg/dLHigh5-27[facility] HospitalComment on above:Performed By: #### RENA BREAUX, , 2776-04 ####[facility] ([id number])[address], [address], [place] [address]Joslemw Glucometer (BldC) [Mass/Vol]on 66-51-2335Oksknwl [Mass/Vol]95 mg/tGWujbox86-97JjoEfhadk [facility] MAGNESIUMon 57-25-6758Trwzajmzc [Mass/Vol]2.2 mg/dLNormal1.8-2.6[facility] HospitalComment on above:Performed By: #### RENA BREAUX, , 2776-04 ####[facility] ([id number])[address], [address], [place] [address]AHKMBFUWCJgz 09-94-6873Ampxnoskq [Mass/Vol]5.2 mg/dLHigh2.4-4.9[facility] HospitalComment on above:Performed By: #### CBCA, CMP, , 2776-04 ####[facility] ([id number])[address], [address], [place] [address]VIKZIFJYSoh 07-15-4115Tzmpuuopj [Moles/Vol]3.9 mmol/LNormal3.5-5.0 [facility] HospitalComment on above:Performed By: #### 2823-3 ####[facility] ([id number])[address], [address], [place] [address] VENOUS BLOOD GASon 29-99-2157YFWHN'S TESTNormalProMedica Lynn HospitalComment on above:Performed By: #### VBG ####[facility] ([id number])[address], [place] [address]LNBF,DEFICIT3.0 MMOL/LHigh0.0-2.0[facility] HospitalComment on above:Performed By: #### VBG ####[facility] ([id number])[address], [place] [address]Xyyc .6 [degF]Normal 37.0[facility] HospitalComment on above:Performed By: #### VBG ####[facility] ([id number])[address], [place] [address]HID4 (Bld) [Moles/Vol]24.5 mmol/LHigh20.0-24.0[facility] HospitalComment on above: Performed By: #### VBG ####[facility] ([id number])[address], [place] [address]HKZY. O2 CONC.4 %NormalProMedica Lynn HospitalComment on above:Performed By: #### VBG ####[facility] ([address] [place] [address])[address] [place], [place] [address]Inpzxf saturation in Blood54.0 %Low>80.0[facility] HospitalComment on above:Performed By: #### VBG ####[facility] ([address] [place] [address])[address] [place], [place] [address]IANBXO SOURCENCNormal [facility] HospitalComment on above:Performed By: #### VBG ####[facility] ([address] [place] [address])[address] [place], [place] [address]FNC2, VENOUS 58.6 FVGLTyge97-04KwoZyoxth Lynn HospitalComment on above:Performed By: #### VBG ####[facility] ([address] [place] [address])[address] [place] [address] PH, VENOUS7.580Ago0.320-7.420[facility] HospitalComment on above:Performed By: #### VBG ####[facility] ([address] [place] [address])[address] [place], [place] [address]OM9, DYUUDU56 GKWFMdcbtr69-24IqzWtrzhe [facility] Comment on above:Performed By: #### VBG ####[facility] ([address] [place] [address])[address] [place], [place] [address]FMQMHV SITEN/ANormalProMedica Lynn HospitalComment on above:Performed By: #### VBG ####[facility] ([address] [place] [address])[address] [place], [place] [address]PPYABB TYPEVENOUSNormal [facility] HospitalComment on above:Performed By: #### VBG ####[facility] ([address] [place] [address])[address] [place], [place] [address]GM CHEST 1 VWon 01-31-4902HY CHEST 1 VWNormalProKindred Hospital LimaCBC AND AUTO DIFFon 05-04-0422LKMGDABQ BASOPHIL0.1 X10E9/LNormal0.0-0.2[facility] Comment on above:Performed By: #### NAMITA [facility], , 2776-04 ####[facility] ([id number])[address], [address], [place] [address] ABSOLUTE NEUTROPHIL4.9 X10E9/LNormal1.5-6.6[facility] HospitalComment on above:Performed By: #### NAMITA [facility], , 2776-04 ####[facility] ([id number])[address], [address], [place] [address]Kwyidbsji/100 WBC (Bld)1.3 %NormalProDoctors Hospital HospitalComment on above:Performed By: #### CBCChristiano [facility], , 2776-04 ####[facility] ([id number])[address], [address] [place] [address]Lglohnayhdj (Bld) [#/Vol]0.8 10*3/uLHigh 0.0-0.4[facility] HospitalComment on above:Performed By: #### CBCChristiano CMP, , 2776-04 ####[facility] ([id number])[address], [address], [place] [address]Yxvdhwiycxg/100 WBC (Bld)9.6 %NormalProDoctors Hospital HospitalComment on above:Performed By: #### CBCA, CMP, , 2776-04 ####[facility] ([id number])[address], [address] [place] [address]Zouyhdlafuo distribution width (RBC) [Ratio]17.6 %High11.5-15.0[facility] HospitalComment on above:Performed By: #### CBCA, CMP, , 2776-04 ####[facility] ([id number])[address], [address], [place] [address]Qkdwxuhdmz (Bld) [Volume fraction]22.6 %Cag22-44PsrNywpyd [facility] Comment on above:Performed By: #### CBCA, CMP, , 2776-04 ####[facility] ([id number])[address], [address] [place] [address] Hemoglobin (Bld) [Mass/Vol]7.4 g/dLLow11.7-15.5PMercy Health [facility] HospitalComment on above:Performed By: #### CBCA, CMP, , 2776-04 ####[facility] ([id number])[address], [address], [place] [address]Yltducanmwl (Bld) [#/Vol]1.3 10*3/uLNormal1.0-3.5PMercy Health Clermont Hospital HospitalComment on above: Performed By: #### CBCChristiano, CMP, , 2776-04 ####[facility] ([id number])[address] [address], [place] [address]Wcwqznxcelv/100 WBC (Bld) 15.7 %NormalProDoctors Hospital HospitalComment on above:Performed By: #### CBCA, CMP, , 2776-04 ####[facility] ([id number])[address], [address], [place] [address]LBN (RBC) [Entitic mass]31.4 fnVcmnkr89-82 [facility] HospitalComment on above:Performed By: #### CBCA, CMP, , 2776-04 ####[facility] ([id number])[address], [address] [place] [address]BJKK (RBC) [Mass/Vol]32.8 g/cQPozavf40-29XdaFxdley Lynn HospitalComment on above:Performed By: #### CBCA, CMP, , 2776-04 ####[facility] ([id number])[address], [address] [place] [address]VHZ (RBC) [Entitic vol]96 dYNgrmbq98-052VryJjugof Lynn HospitalComment on above:Performed By: #### CBCA, CMP, , 2776-04 ####[facility] ([id number])[address], [address] [place] [address]Nccuowhud (Bld) [#/Vol]0.9 10*3/uLNormal0-0.9[facility] HospitalComment on above:Performed By: #### CBCA, CMP, , 2776-04 ####[facility] ([id number])[address], [address] [place] [address]Ylykksbpi/100 WBC (Bld)11.8 %NormalProMedica Lynn HospitalComment on above:Performed By: #### CBCA, CMP, , 2776-04 ####[facility] ([id number])[address], [address] [place] [address] 85885Fxwdmmtvzsv/100 WBC (Bld)61.6 %NormalProMedica Lynn HospitalComment on above:Performed By: #### CBCA, CMP, , 2776-04 ####[facility] ([id number])[address], [address] [place] [address]Pvsavepn mean volume (Bld) [Entitic vol]6.7 fLLow7-12Pro[facility] Lynn HospitalComment on above:Performed By: #### CBCA, CMP, , 2776-04 ####[facility] ([id number])[address], [address], [place] [address]Orqgdkaux (Bld) [#/Vol]430 10*3/qBZwovsy215-079NkgFtzovvLima City Hospital Comment on above:Performed By: #### NAMITA CMP, , 1 ####[facility] ([id number])[address], [address], [place] [address]PQI COUNT2.36 X10E12/LLow3.80-5.20ProKindred Hospital LimaComment on above: Performed By: #### RENA BREAUX, , 2776-04 ####[facility] ([id number])[address], [address], [place] [address]ZTO (Bld) [#/Vol]8.0 10*3/uLNormal4.0-11.0ProKindred Hospital LimaComment on above:Performed By: #### NAMITA CMP, , 2776-04 ####[facility] ([id number])[address], [address], [place] [address]ACXVKBOPGOOSO METABOLIC PANELon 89-44-6112Ffihhqw [Mass/Vol]3.9 g/dLNormal3.2-5.3PCleveland Clinic Euclid HospitalComment on above:Performed By: #### NAMITA CMP, , 2776-04 ####[facility] ([id number])[address], [address], [place] [address]WAX [Catalytic activity/Vol]64 U/UUllunc15-307NpwYifkmfLima City Hospital Comment on above:Performed By: #### CBCA, CMP, , 1 ####[facility] ([id number])[address], [address], [place] [address]XNI [Catalytic activity/Vol]5 U/LNormal0-31[facility] HospitalComment on above:Performed By: #### RENA BREAUX, , 2776-04 ####[facility] ([id number])[address], [address], [place] [address]Zjwam gap [Moles/Vol]16 mmol/LHigh5-15[facility] HospitalComment on above:Performed By: #### RENA BREAUX, , 2776-04 ####[facility] ([id number])[address], [address], [place] [address]WCE [Catalytic activity/Vol]11 U/LNormal0-41 [facility] HospitalComment on above:Performed By: #### RENA BREAUX, , 2776-04 ####[facility] ([id number])[address], [address], [place] [address]Qelashhuz [Mass/Vol]1.0 mg/dLNormal0.3-1.2ProMedOhioHealth [facility]ide Methodist Hospital HospitalComment on above:Performed By: #### RENA BREAUX, , 2776-04 ####[facility] ([id number])[address], [address], [place] [address]Juoqkxa [Mass/Vol]10.4 mg/dLNormal8.5-10.5PMercy Health Clermont Hospital HospitalComment on above:Performed By: #### RENA BREAUX, , 2776-04 ####[facility] ([id number])[address], [address], [place] [address]Hjuwusdp [Moles/Vol]101 mmol/RCfpmon00-568UiqHgnvjb [place] HospitalComment on above: Performed By: #### RENA BREAUX, , 2776-04 ####[facility] ([id number])[address], [address], [place] [address]PA0 [Moles/Vol]21 mmol/LLow 22-32Pro[facility]idge HospitalComment on above:Performed By: #### RENA BREAUX, , 2776-04 ####[facility] ([id number])[address], [address], [place] [address]Prrnxvavzt [Mass/Vol]3.26 mg/dLHigh0.40-1.00Pro[facility]idge HospitalComment on above:Result Comment: METHOD TRACEABLE TO IDMS STANDARDPerformed By: #### RENA BREAUX, , 2776-04 ####[facility] ([id number])[address] [address]MOB/1.73 sq M.predicted among non-blacks MDRD (S/P/Bld) [Vol rate/Area]16 mL/min/{1.73_m2} Low>59Pro[facility] Coolidge HospitalComment on above:Result Comment: Reported eGFR is based on theCKD-EPI 2020 equation that doesnot use a race coefficient.Performed By: #### RENA BREAUX, , 2776-04 ####[facility] ([id number])[address] [address] [place] [address]Kmygzhm [Mass/Vol]83 mg/dL Rfzvcq04-34EvmKsoxgd [place] HospitalComment on above:Performed By: #### RENA BREAUX, , 2776-04 ####[facility] ([id number])[address], [address], [place] [address]Fazobbmjn [Moles/Vol]3.9 mmol/LNormal3.5-5.0 [facility] HospitalComment on above:Performed By: #### RENA BREAUX, , 2776-04 ####[facility] ([id number])[address] [address], [place] [address]Okjztjk [Mass/Vol]7.0 g/dLNormal6.0-8.0[facility] HospitalComment on above:Performed By: #### RENA BREAUX, , 2776-04 ####[facility] ([id number])[address], [address], [place] [address]Lboiog [Moles/Vol]138 mmol/GYjcnue837-125LwjNejqoz Lynn HospitalComment on above:Performed By: #### RENA BREAUX, , 2776-04 ####[facility] ([id number])[address], [address], [place] [address]Mqtq nitrogen [Mass/Vol]76 mg/dLHigh5-27[facility] HospitalComment on above:Performed By: #### RENA BREAUX, , 2776-04 ####[facility] ([id number])[address], [address] [place] [address]HPHZBRMMEox 06-28-2024 Magnesium [Mass/Vol]2.4 mg/dLNormal1.8-2.6[facility] HospitalComment on above:Performed By: #### RENA BREAUX, , 2776-04 ####[facility] ([id number])[address], [address] [place] [address]NOABVTUOYStx 91-66-2616Ttbssptys [Mass/Vol]5.5 mg/dLHigh2.4-4.9[facility] Comment on above:Performed By: #### RENA BREAUX, , 2776-04 ####[facility] ([id number])[address], [address], [place] [address]ZNS AND AUTO DIFFon 52-47-9255UEVGSHHE BASOPHIL0.1 X10E9/LNormal0.0-0.2[facility] HospitalComment on above:Performed By: #### RENA BREAUX, , 2776-04 ####[facility] ([id number])[address], [address] [place] [address]XALWAHHW NEUTROPHIL4.1 X10E9/LNormal1.5-6.6[facility] Comment on above:Performed By: #### CBCChristiano, CMP, , 2776-04 ####[facility] ([id number])[address], [address] [place] [address] Basophils/100 WBC (Bld)0.8 %NormalProDoctors Hospital HospitalComment on above: Performed By: #### CBCA, CMP, , 2776-04 ####[facility] ([id number])[address], [address] [place] [address]Ldosrcwtyzs (Bld) [#/Vol] 0.4 10*3/uLNormal0.0-0.4[facility] HospitalComment on above:Performed By: #### CBCA, CMP, , 2776-04 ####[facility] ([id number])[address] [address] [place] [address]Nvrqbbefgki/100 WBC (Bld) 6.0 %NormalProDoctors Hospital HospitalComment on above:Performed By: #### CBCA, CMP, , 2776-04 ####[facility] ([id number])[address], [address] [place] [address]Jhkjbnqsool distribution width (RBC) [Ratio]17.5 %High11.5-15.0[facility] HospitalComment on above:Performed By: #### CBCA, CMP, , 2776-04 ####[facility] ([id number])[address], [address] [place] [address]Tiobnlgmst (Bld) [Volume fraction]22.2 %Low 35-47[facility] HospitalComment on above:Performed By: #### CBCA, CMP, , 2776-04 ####[facility] ([id number])[address], [address], [place] [address]Fwoveccuqh (Bld) [Mass/Vol]7.4 g/dLLow11.7-15.5 [facility] HospitalComment on above:Performed By: #### CBCA, CMP, , 2776-04 ####[facility] ([id number])[address], [address], [place] [address]Nhveiqxxehc (Bld) [#/Vol]1.3 10*3/uLNormal1.0-3.5[facility] HospitalComment on above:Performed By: #### CBCA, CMP, , 2776-04 ####[facility] ([id number])[address], [address], [place] [address]Qspopvzoijc/100 WBC (Bld)19.0 %NormalProGreene Memorial Hospitalca [facility]idge HospitalComment on above:Performed By: #### CBCA, CMP, , 2776-04 ####[facility] ([id number])[address], [address], [place] [address]OCG (RBC) [Entitic mass]31.8 xbFzckpa06-38IzcGusdzd Coolidge HospitalComment on above:Performed By: #### CBCA, CMP, , 2776-04 ####[facility] ([id number])[address], [address], [place] [address]XIMH (RBC) [Mass/Vol]33.4 g/rHWkxecj90-06KmzVufikl [facility]idge HospitalComment on above:Performed By: #### CBCA, CMP, , 2776-04 ####[facility] ([id number])[address], [address], [place] [address]TDP (RBC) [Entitic vol]95 wHFbexhe85-210 [facility] HospitalComment on above:Performed By: #### CBCA, CMP, , 2776-04 ####[facility] ([id number])[address], [address], [place] [address]Isqiwqelp (Bld) [#/Vol]0.9 10*3/uLNormal0-0.9[facility] HospitalComment on above:Performed By: #### CBCA, CMP, , 2776-04 ####[facility] ([id number])[address], [address], [place] [address]Cundwrzqm/100 WBC (Bld)13.7 %NormalProMedica Lynn HospitalComment on above:Performed By: #### CBCA, CMP, , 2776-04 ####[facility] ([id number])[address], [address], [place] [address]Zbboghouheu/100 WBC (Bld)60.5 %NormalProMedica Lynn HospitalComment on above:Performed By: #### CBCA, CMP, , 2776-04 ####[facility] ([id number])[address], [address], [place] [address]Rztoqbzy mean volume (Bld) [Entitic vol]6.8 fLLow7-12[facility] HospitalComment on above:Performed By: #### CBCA, CMP, , 2776-04 ####[facility] ([id number])[address], [address], [place] [address]Mslmriofw (Bld) [#/Vol]405 10*3/uZFsvcfp855-813 [facility] HospitalComment on above:Performed By: #### CBCA, CMP, , 2776-04 ####[facility] ([id number])[address], [address], [place] [address]EIP COUNT2.33 X10E12/LLow3.80-5.20[facility] Comment on above:Performed By: #### RENA BREAUX, , 1 ####[facility] ([id number])[address], [address], [place] [address]GOT (Bld) [#/Vol]6.8 10*3/uLNormal4.0-11.0Pro[facility] Hospital LimaComment on above: Performed By: #### RENA BREAUX, , 2776-04 ####[facility] ([id number])[address], [address], [place] [address]YSDYFHZFRZVUF METABOLIC PANELon 70-52-1969Ivilyqc [Mass/Vol]4.0 g/dLNormal3.2-5.3PMer[facility] HospitalComment on above:Performed By: #### RENA BREAUX, , 2776-04 ####[facility] ([id number])[address], [address], [place] [address]BAT [Catalytic activity/Vol]60 U/AYnnvcv67-123JabAanrqkLima City Hospital Comment on above:Performed By: #### NAMITA CMP, , 2776-04 ####[facility] ([id number])[address], [address], [place] [address]JWZ [Catalytic activity/Vol]6 U/LNormal0-31PC[facility] HospitalComment on above:Performed By: #### NAMITA, CMP, , 2776-04 ####[facility] ([id number])[address], [address], [place] [address]Ltxol gap [Moles/Vol]15 mmol/LNormal5-15[facility] HospitalComment on above:Performed By: #### RENA BREAUX, , 2776-04 ####[facility] ([id number])[address], [address], [place] [address]VWO [Catalytic activity/Vol]13 U/LNormal0-41 [facility] HospitalComment on above:Performed By: #### RENA BREAUX, , 2776-04 ####[facility] ([id number])[address], [address], [place] [address]Nslevbytk [Mass/Vol]0.9 mg/dLNormal0.3-1.2[facility] HospitalComment on above:Performed By: #### RENA BREAUX, , 2776-04 ####[facility] ([id number])[address], [address], [place] [address]Wyblwef [Mass/Vol]10.1 mg/dLNormal8.5-10.5[facility]MedOhio[facility] HospitalComment on above:Performed By: #### RENA BREAUX, , 2776-04 ####[facility] ([id number])[address], [address], [place] [address]Dcmiscxa [Moles/Vol]102 mmol/KAjdqbq26-897HqvYhvulf [facility] HospitalComment on above: Performed By: #### RENA BREAUX, , 2776-04 ####[facility] ([id number])[address], [address], [place] [address]JH5 [Moles/Vol]22 mmol/L Cbxxtq23-41NisBcarbb [place] HospitalComment on above:Performed By: #### RENA BREAUX, , 2776-04 ####[facility] ([id number])[address], [address], [place] [address]Wdpacrvuct [Mass/Vol]2.91 mg/dLHigh0.40-1.00 [facility] HospitalComment on above:Result Comment: METHOD TRACEABLE TO IDAK STANDARDPerformed By: #### RENA BREAUX, , 2776-04 ####[facility] ([id number])[address] [address], [place] [address]HQC/1.73 sq M.predicted among non-blacks MDRD (S/P/Bld) [Vol rate/Area]18 mL/min/{1.73_m2} Low>59[facility] HospitalComment on above:Result Comment: Reported eGFR is based on theCKD-EPI 2020 equation that doesnot use a race coefficient.Performed By: #### RENA BREAUX, , 2776-04 ####[facility] ([id number])[address] [address], [place] [address]Aiavzcf [Mass/Vol]80 mg/dL Epcgdl21-58ModMclaqn [place] HospitalComment on above:Performed By: #### RENA BREAUX, , 2776-04 ####[facility] ([id number])[address], [address], [place] [address]Hjltjramf [Moles/Vol]4.2 mmol/LNormal3.5-5.0 [facility] HospitalComment on above:Performed By: #### RENA BREAUX, , 2776-04 ####[facility] ([id number])[address] [address], [place] [address]Zwoipwa [Mass/Vol]7.0 g/dLNormal6.0-8.0[facility] HospitalComment on above:Performed By: #### RENA BREAUX, , 2776-04 ####[facility] ([id number])[address], [address], [place] [address]Kxyxct [Moles/Vol]139 mmol/YTcstev941-884HfuVzhumu [place] HospitalComment on above:Performed By: #### RENA BREAUX, , 2776-04 ####[facility] ([id number])[address], [address] [place] [address]Gyyi nitrogen [Mass/Vol]71 mg/dLHigh5-27[facility] HospitalComment on above:Performed By: #### RENA BREAUX, , 2776-04 ####[facility] ([id number])[address], [address] [place] [address]BFY core IgM IA Qlon 13-77-4133YZDCZLELI B CORE IGMNon-ReactiveNormalNRCTLima City Hospital Comment on above:Result Comment: NEW TEST METHODPerformed By: #### 42656-6 ####[facility] ([id number])[address], [address] [place] [address]LXXNDZDSMzt 66-50-0388Bxtfkvzgv [Mass/Vol]2.5 mg/dLNormal1.8-2.6[facility] HospitalComment on above:Performed By: #### RENA BREAUX, , 2776-04 ####[facility] ([id number])[address], [address] [place] [address]BIPOPXEMENkz 74-94-9349Milqukfmx [Mass/Vol]5.3 mg/dLHigh2.4-4.9ProKindred Hospital LimaComment on above:Performed By: #### RENA BREAUX, , 2776-04 ####[facility] ([id number])[address], [address] [place] [address]ZXK AND AUTO DIFFon 31-92-2263INOGXDTM BASOPHIL0.2 X10E9/LNormal0.0-0.2 [facility] HospitalComment on above:Performed By: #### RENA BREAUX, , 2776-04 ####[facility] ([id number])[address], [address] [place], [place] [address]HQUROSDD NEUTROPHIL3.7 X10E9/LNormal1.5-6.6[facility] HospitalComment on above:Performed By: #### CBCA, CMP, , 2776-04 ####[facility] ([id number])[address], [address], [place] [address]Vwepuwrwx/100 WBC (Bld)2.7 %NormalProMedica Lynn HospitalComment on above:Performed By: #### CBCA, CMP, , 2776-04 ####[facility] ([id number])[address], [address], [place] [address]Dagdkmdlzin (Bld) [#/Vol]0.1 10*3/uLNormal0.0-0.4[facility] HospitalComment on above: Performed By: #### CBCA, CMP, , 2776-04 ####[facility] ([id number])[address], [address], [place] [address]Aoujcrtajaq/100 WBC (Bld) 2.3 %NormalProMedica Lynn HospitalComment on above:Performed By: #### CBCA, CMP, , 2776-04 ####[facility] ([id number])[address], [address], [place] [address]Nhoxhytbmtk distribution width (RBC) [Ratio]17.4 %High11.5-15.0[facility] HospitalComment on above:Performed By: #### CBCA, CMP, , 2776-04 ####[facility] ([id number])[address], [address], [place] [address]Opebqmgqkr (Bld) [Volume fraction]22.2 %Low 35-47[facility] HospitalComment on above:Performed By: #### CBCA, CMP, , 2776-04 ####[facility] ([id number])[address], [address], [place] [address]Pwlwnemjeq (Bld) [Mass/Vol]7.4 g/dLLow11.7-15.5 [facility] HospitalComment on above:Performed By: #### CBCA, CMP, , 2776-04 ####[facility] ([id number])[address], [address], [place] [address]Qaugzabeznp (Bld) [#/Vol]1.2 10*3/uLNormal1.0-3.5[facility] HospitalComment on above:Performed By: #### CBCA, CMP, , 2776-04 ####[facility] ([id number])[address], [address], [place] [address]Imyttbqcdok/100 WBC (Bld)19.4 %NormalProDoctors Hospital HospitalComment on above:Performed By: #### CBCA, CMP, , 2776-04 ####[facility] ([id number])[address], [address], [place] [address]MHO (RBC) [Entitic mass]31.8 gmNqilcf51-38QnbDpjizr [place] HospitalComment on above:Performed By: #### CBCA, CMP, , 2776-04 ####[facility] ([id number])[address], [address], [place] [address]ZYDG (RBC) [Mass/Vol]33.6 g/eENjgcqh21-43JlvAnwovy [facility] HospitalComment on above:Performed By: #### CBCA, CMP, , 2776-04 ####[facility] ([id number])[address], [address], [place] [address]SJH (RBC) [Entitic vol]95 fNZzvqrg21-012 [facility] HospitalComment on above:Performed By: #### CBCA, CMP, , 2776-04 ####[facility] ([id number])[address], [address], [place] [address]Wjoimkubq (Bld) [#/Vol]1.0 10*3/uLHigh0-0.9[facility] HospitalComment on above:Performed By: #### CBCA, CMP, , 2776- ####[facility] ([id number])[address], [address], [place] [address]Tnhnsuzoo/100 WBC (Bld)15.5 %NormalProMedica Lynn HospitalComment on above:Performed By: #### CBCA, CMP, , 2776-04 ####[facility] ([id number])[address], [address], [place] [address]Bzpeiecqxgr/100 WBC (Bld)60.1 %NormalProMedica Lynn HospitalComment on above:Performed By: #### CBCA, CMP, , 2776-04 ####[facility] ([id number])[address], [address], [place] [address]Siftsyaa mean volume (Bld) [Entitic vol]6.7 fLLow7-12[facility] HospitalComment on above:Performed By: #### CBCA, CMP, , 2776- ####[facility] ([id number])[address], [address], [place] [address]Shjxwhopu (Bld) [#/Vol]394 10*3/hQBvbvuj626-549 [facility] HospitalComment on above:Performed By: #### CBCA, CMP, , 2776- ####[facility] ([id number])[address], [address], [place] [address]RKW COUNT2.34 X10E12/LLow3.80-5.20[facility] Comment on above:Performed By: #### RENA BREAUX, , 2776-04 ####[facility] ([id number])[address], [address], [place] [address]OYJ (Bld) [#/Vol]6.2 10*3/uLNormal4.0-11.0ProKindred Hospital LimaComment on above: Performed By: #### RENA BREAUX, , 2776-04 ####[facility] ([id number])[address], [place] [address]QMZSRBDWSTVCI METABOLIC PANELon 83-70-0211Hoacczp [Mass/Vol]4.4 g/dLNormal3.2-5.3PCleveland Clinic Euclid HospitalComment on above:Performed By: #### RENA BREAUX, , 2776-04 ####[facility] ([id number])[address], [address], [place] [address]TLL [Catalytic activity/Vol]63 U/AQkxphy46-767EnyJjdngoLima City Hospital Comment on above:Performed By: #### RENA BREAUX, , 2776-04 ####[facility] ([id number])[address], [address], [place] [address]SHC [Catalytic activity/Vol]5 U/LNormal0-31PC[facility] Clinic [facility] HospitalComment on above:Performed By: #### NAMITA CMP, , 2776-04 ####[facility] ([id number])[address], [address], [place] [address]Ncfmw gap [Moles/Vol]17 mmol/LHigh5-15[facility] HospitalComment on above:Performed By: #### RENA BREAUX, , 2776-04 ####[facility] ([id number])[address], [address], [place] [address]WUS [Catalytic activity/Vol]12 U/LNormal0-41 [facility] HospitalComment on above:Performed By: #### RENA BREAUX, , 2776-04 ####[facility] ([id number])[address], [address], [place] [address]Psrdmmkaa [Mass/Vol]1.0 mg/dLNormal0.3-1.2[facility] HospitalComment on above:Performed By: #### RENA BREAUX, , 2776-04 ####[facility] ([id number])[address], [address], [place] [address]Feblotv [Mass/Vol]10.2 mg/dLNormal8.5-10.5[facility]Ohio[facility] HospitalComment on above:Performed By: #### RENA BREAUX, , 2776-04 ####[facility] ([id number])[address], [address], [place] [address]Cauwbvgl [Moles/Vol]98 mmol/YBypoiu06-158RnwAqvcfg [place] HospitalComment on above: Performed By: #### RENA BREAUX, , 2776-04 ####[facility] ([id number])[address], [address], [place] [address]NM7 [Moles/Vol]22 mmol/L Hozqyo42-18TpdBqabnh Lynn HospitalComment on above:Performed By: #### RENA BREAUX, , 2776-04 ####[facility] ([id number])[address], [address], [place] [address]Snxswlpirp [Mass/Vol]2.31 mg/dLHigh0.40-1.00 [facility] HospitalComment on above:Result Comment: METHOD TRACEABLE TO IDMS STANDARDPerformed By: #### RENA BREAUX, , 2776-04 ####[facility] ([id number])[address] [address], [place] [address]XYF/1.73 sq M.predicted among non-blacks MDRD (S/P/Bld) [Vol rate/Area]23 mL/min/{1.73_m2} Low>59[facility] HospitalComment on above:Result Comment: Reported eGFR is based on theCKD-EPI 2020 equation that doesnot use a race coefficient.Performed By: #### RENA BREAUX, , 2776-04 ####[facility] ([id number])[address] [address], [place] [address]Zwmypnb [Mass/Vol]94 mg/dL Ovbvdq36-35YzbJqjocw [place] HospitalComment on above:Performed By: #### RENA BREAUX, , 2776-04 ####[facility] ([id number])[address], [address], [place] [address]Vmxzdonag [Moles/Vol]3.2 mmol/LLow3.5-5.0 [facility] HospitalComment on above:Performed By: #### RENA BREAUX, , 2776-04 ####[facility] ([id number])[address] [address], [place] [address]Uegyfkm [Mass/Vol]7.5 g/dLNormal6.0-8.0[facility] HospitalComment on above:Performed By: #### RENA BREAUX, , 2776-04 ####[facility] ([id number])[address] [address], [place] [address]Fcflco [Moles/Vol]137 mmol/ZUhoees183-456GlnBfrhjl [place] HospitalComment on above:Performed By: #### RENA BREAUX, , 2776-04 ####[facility] ([id number])[address], [address], [place] [address]Usji nitrogen [Mass/Vol]63 mg/dLHigh5-27ProKindred Hospital LimaComment on above:Performed By: #### RENA BREAUX, , 2776-04 ####[facility] ([id number])[address], [place] [address]CG SWALLOW MOTILITY FUNCTIONon 16-07-7150IU SWALLOW MOTILITY FUNCTIONNormalProKindred Hospital Lima MAGNESIUMon 34-52-8601Nobqlimyp [Mass/Vol]1.9 mg/dLNormal1.8-2.6ProKindred Hospital LimaComment on above:Performed By: #### RENA BREAUX, , 2776-04 ####[facility] ([id number])[address], [address] [place] [address]Zsgugolfd Ionized ISE (Bld) [Moles/Vol]on 79-12-1448Vidvhentx [Moles/Vol] 0.73 mmol/LNormal0.45-0.74ProKindred Hospital LimaComment on above:Result Comment: NEW REFERENCE RANGEPerformed By: #### 92084-9 ####[facility] ([id number])[address] [address], [place] [address]LWRDKZEIPMvw 31-25-7875Ffdvlezsh [Mass/Vol]4.5 mg/dLNormal2.4-4.9[facility] Comment on above:Performed By: #### RENA BREAUX, , 1 ####[facility] ([id number])[address], [address], [place] [address] POTASSIUMon 28-77-2508Gulwwwbcq [Moles/Vol]4.3 mmol/LNormal3.5-5.0Pro[facility] Lynn HospitalComment on above:Performed By: #### 2823-3 ####[facility] ([id number])[address], [place] [address]Cvlajcjev [Moles/Vol]3.5 mmol/LNormal3.5-5.0Pro[facility]ica Lynn HospitalComment on above: Performed By: #### 2823-3 ####[facility] ([id number])[address], [place] [address]QB CHEST 1 VWon 13-10-3687UM CHEST 1 VW NormalProMedica Lynn HospitalARTERIAL BLOOD GASon 32-34-4884PSKYK'S TESTNormal [facility]ica Lynn HospitalComment on above:Performed By: #### ABG ####[facility] ([id number])[address] [place], [place] [address]QSLG,DEFICIT5.0 MMOL/LHigh0.0-2.0ProMedica Lynn HospitalComment on above:Performed By: #### ABG ####[facility] ([id number])[address] [place] [address] Body dssvkolrcop34.6 [degF]Ulwevo18.0ProMedica Lynn HospitalComment on above: Performed By: #### ABG ####[facility] ([id number])[address] [place], [place] [address]PBA4 (Bld) [Moles/Vol]19.6 mmol/SUtj81-42TpxFoxwwr Lynn HospitalComment on above:Performed By: #### ABG ####[facility] ([id number])[address] [place], [place] [address]ARJZ. O2 CONC.40 %NormalProMedica Lynn HospitalComment on above:Performed By: #### ABG ####[facility] ([id number])[address] [facility], [place] [address]Nzrdfp (Bld) [Partial pressure]173 mm[Hg]Udpp35-138TvoCuzqub Lynn HospitalComment on above:Performed By: #### ABG ####[facility] ([id number])[address] [facility]ENT[facility], [place] [address]Byuqzr saturation in Wlzkr738.0 %Normal>90ProMedica Lynn HospitalComment on above:Performed By: #### ABG ####[facility] ([address] [place] [address])[address] [facility], [place] [address]CZYORR SOURCEVentNormalProMedica Lynn HospitalComment on above:Performed By: #### ABG ####[facility] ([id number])[address] [facility] CENTERCyn[facility] [place] [address]RUB515.3 AVSYZnp02-34 [facility]Medica Lynn HospitalComment on above:Performed By: #### ABG ####[facility] ([address] [place] [address] [facility], [place] [address]eN (Bld)7.378 [pH]Normal7.350-7.450ProMedica Lynn HospitalComment on above:Performed By: #### ABG ####[facility] ([address] [place] [address])[address] [facility], [place] [address]NMDSRA SITEALineNormalProMedica Lynn HospitalComment on above:Performed By: #### ABG ####[facility] ([address] [place] [address])[address] [facility], [place] [address]ZSRYPK TYPEARTERIALNormalProMedica Lynn HospitalComment on above: Performed By: #### ABG ####[facility] ([id number])[address] [facility] CENTERCyndie [facility]ITALTOCH[facility], [place] [address]HLM AND AUTO DIFFon 26-28-6226ALHLJYWW BASOPHIL0.0 X10E9/L Normal0.0-0.2ProMedica Lynn HospitalComment on above:Performed By: #### CBCRENA Alvarado, , 2776-04 ####[facility] ([id number])[address], [place] [address]CJEQHHXD NEUTROPHIL5.7 X10E9/LNormal1.5-6.6 ProMAdena Regional Medical CenterComment on above:Performed By: #### CBCChristiano CMP, , 2776-04 ####[facility] [facility] ([id number])[address], [place] [address]Eqvebcljh/100 WBC (Bld)0.7 %[facility] Comment on above:Performed By: #### RENA BREAUX, , 2776-04 ####[facility] ([id number])[address] [address] Eosinophils (Bld) [#/Vol]0.0 10*3/uLNormal0.0-0.4[facility] Comment on above:Performed By: #### RENA BREAUX, , 2776-04 ####[facility] ([id number])[address] [address] [place] [address] Eosinophils/100 WBC (Bld)0.0 %NormalLima City HospitalComment on above: Performed By: #### CBCChristiano CMP, , 2776-04 ####[facility] ([id number])[address] [address] [place] [address]Fytydvqvjar distribution width (RBC) [Ratio]17.3 %High11.5-15.0[facility] HospitalComment on above: Performed By: #### CBCA, CMP, , 2776-04 ####[facility] ([id number])[address] [address], [place] [address]Excwgojrzz (Bld) [Volume fraction]25.2 %Cne32-68QqmEtgzcc Lynn HospitalComment on above:Performed By: #### CBCChristiano, CMP, , 2776-04 ####[facility] ([id number])[address], [address], [place] [address]Rlgwqrklhb (Bld) [Mass/Vol] 8.5 g/dLLow11.7-15.5[facility] HospitalComment on above:Performed By: #### CBCA, CMP, , 2776-04 ####[facility] ([id number])[address], [address], [place] [address]Lowvnrvvrgz (Bld) [#/Vol]0.8 10*3/uLLow 1.0-3.5ProMedOhio[facility] HospitalComment on above:Performed By: #### CBCA, CMP, , 2776-04 ####[facility] ([id number])[address], [address], [place] [address]Uthpxqyegxh/100 WBC (Bld)11.1 %NormalProMedica Coolidge HospitalComment on above:Performed By: #### CBCA, CMP, , 2776-04 ####[facility] ([id number])[address], [address], [place] [address]IKL (RBC) [Entitic mass]32.0 gwHtppmp16-88BlwRvhezw Lynn HospitalComment on above:Performed By: #### CBCA, CMP, , 2776-04 ####[facility] ([id number])[address], [address], [place] [address]GMHH (RBC) [Mass/Vol]33.7 g/gMNxzkei48-23GubJbuddc Lynn HospitalComment on above: Performed By: #### CBCA, CMP, , 2776-04 ####[facility] ([id number])[address], [address], [place] [address]OND (RBC) [Entitic vol]95 rNLadcvg72-061AorAcflmo [facility] HospitalComment on above:Performed By: #### CBCA, CMP, , 2776-04 ####[facility] ([id number])[address], [address], [place] [address]Mvyiknayp (Bld) [#/Vol]0.3 10*3/uLNormal0-0.9 [facility] HospitalComment on above:Performed By: #### CBCA, CMP, , 2776-04 ####[facility] ([id number])[address], [address], [place] [address]Xjvzgghyl/100 WBC (Bld)4.8 %NormalProGreene Memorial Hospitalca [facility] Comment on above:Performed By: #### CBCA, CMP, , 2776-04 ####[facility] ([id number])[address], [address], [place] [address] Neutrophils/100 WBC (Bld)83.4 %NormalProMedica Coolidge HospitalComment on above: Performed By: #### CBCA, CMP, , 2776-04 ####[facility] ([id number])[address], [address], [place] [address]Rogiiait mean volume (Bld) [Entitic vol]7.2 fLNormal7-12[facility]ica [facility] HospitalComment on above:Performed By: #### CBCA, CMP, , 2776-04 ####[facility] ([id number])[address], [address], [place] [address]Sxcoebxik (Bld) [#/Vol]419 10*3/nQPiqkoh684-028ZimCkepdk Lynn HospitalComment on above:Performed By: #### CBCA, CMP, , 2776-04 ####[facility] ([id number])[address], [address], [place] [address]VAI COUNT2.66 X10E12/LLow3.80-5.20[facility] HospitalComment on above:Performed By: #### RENA BREAUX, , 2776-04 ####[facility] ([id number])[address], [address], [place] [address]ION (Bld) [#/Vol]6.8 10*3/uLNormal4.0-11.0ProKindred Hospital LimaComment on above:Performed By: #### RENA BREAUX, , 2776-04 ####[facility] ([id number])[address], [address] [place] [address]RLCJPAUCUVYKJ METABOLIC PANELon 41-45-7857Cbtrjeg [Mass/Vol]3.6 g/dLNormal3.2-5.3PMercy Health Cl[facility] HospitalComment on above:Performed By: #### RENA BREAUX, , 2776-04 ####[facility] ([id number])[address], [address], [place] [address]PJA [Catalytic activity/Vol]66 U/VHgzxub74-712JguZkffry [facility] Comment on above:Performed By: #### RENA BREAUX, , 2776-04 ####[facility] ([id number])[address], [address], [place] [address]MTS [Catalytic activity/Vol]4 U/LNormal0-31PCleveland Clinic Euclid HospitalComment on above:Performed By: #### RENA BREAUX, , 2776-04 ####[facility] ([id number])[address], [address], [place] [address]Rucxa gap [Moles/Vol]18 mmol/LHigh5-15[facility] HospitalComment on above:Performed By: #### RENA BREAUX, , 2776-04 ####[facility] ([id number])[address], [address], [place] [address]EBH [Catalytic activity/Vol]9 U/LNormal0-41 [facility] HospitalComment on above:Performed By: #### RENA BREAUX, , 2776-04 ####[facility] ([id number])[address], [address], [place] [address]Becfcwjsw [Mass/Vol]0.8 mg/dLNormal0.3-1.2[facility]MedOhio[facility] HospitalComment on above:Performed By: #### RENA BREAUX, , 2776-04 ####[facility] ([id number])[address], [address], [place] [address]Vololoz [Mass/Vol]10.4 mg/dLNormal8.5-10.5ProMedOhioHealth [facility]ide [facility] Hospital HospitalComment on above:Performed By: #### RENA BREAUX, , 2776-04 ####[facility] ([id number])[address], [address], [place] [address]Tjhnimkn [Moles/Vol]96 mmol/COwp27-738ScfBithfj Lynn HospitalComment on above:Performed By: #### RENA BREAUX, , 2776-04 ####[facility] ([id number])[address], [address], [place] [address]WB8 [Moles/Vol]22 mmol/L Vfcomz06-25HvtYsoqrp [place] HospitalComment on above:Performed By: #### RENA BREAUX, , 2776-04 ####[facility] ([id number])[address], [address], [place] [address]Jbfolmslyz [Mass/Vol]2.94 mg/dLHigh0.40-1.00 [facility] HospitalComment on above:Result Comment: METHOD TRACEABLE TO IDMS STANDARDPerformed By: #### RENA BREAUX, , 2776-04 ####[facility] ([id number])[address] [address], [place] [address]TCQ/1.73 sq M.predicted among non-blacks MDRD (S/P/Bld) [Vol rate/Area]18 mL/min/{1.73_m2} Low>59ProMedica [facility] HospitalComment on above:Result Comment: Reported eGFR is based on theCKD-EPI 2020 equation that doesnot use a race coefficient.Performed By: #### RENA BREAUX, , 2776-04 ####[facility] ([id number])[address] [address], [place] [address]Asvduqk [Mass/Vol]125 mg/dL Phnd96-13UtsEkjwwh [facility] HospitalComment on above:Performed By: #### RENA BREAUX, , 2776-04 ####[facility] ([id number])[address] [address], [place] [address]Idmqgmpew [Moles/Vol]3.9 mmol/LNormal3.5-5.0ProGreene Memorial Hospitalca [facility] HospitalComment on above:Performed By: #### RENA BREAUX, , 2776-04 ####[facility] ([id number])[address] [address], [place] [address]Kjwyayr [Mass/Vol]7.0 g/dLNormal6.0-8.0[facility] HospitalComment on above:Performed By: #### RENA BREAUX, , 2776-04 ####[facility] ([id number])[address] [address], [place] [address]Addlbp [Moles/Vol]136 mmol/GNpqurg884-984IbcUgzqtu [facility] HospitalComment on above: Performed By: #### RENA BREAUX, , 2776-1 ####[facility] ([id number])[address], [address], [place] [address]Wftr nitrogen [Mass/Vol]105 mg/dLHigh5-27[facility] HospitalComment on above:Performed By: #### RENA BREAUX, , 2776-04 ####[facility] ([id number])[address], [address], [place] [address]SCOTJVNOYds 27-55-0271Carrtmgzy [Mass/Vol]2.3 mg/dLNormal1.8-2.6[facility] HospitalComment on above:Performed By: #### RENA BREAUX, , 2776-04 ####[facility] ([id number])[address], [address], [place] [address]PSSQDJNQFCzc 53-19-2294Ubalcunyo [Mass/Vol] 7.0 mg/dLHigh2.4-4.9[facility] HospitalComment on above:Performed By: #### RENA BREAUX, , 2776-1 ####[facility] ([id number])[address], [address], [place] [address]HJ CHEST 1 VWon 32-56-9950UI CHEST 1 VW NormalProGreene Memorial Hospitalca Coolidge HospitalARTERIAL BLOOD GASon 60-87-8115HZSBJ'S TESTNormal [facility] HospitalComment on above:Performed By: #### ABG ####[facility] ([id number])[address]TOCHIL[address] [place], [place] [address]UTSZ,DEFICIT7.0 MMOL/LHigh0.0-2.0[facility] HospitalComment on above:Performed By: #### ABG ####[facility] ([id number])[address] [place] [address] Body oqzdunxaney43.6 [degF]Xnrjbv72.0[facility] HospitalComment on above: Performed By: #### ABG ####[facility] ([id number])[address], [place] [address]QUX8 (Bld) [Moles/Vol]18.8 mmol/SSmn03-81GqeJcadwq [facility] HospitalComment on above:Performed By: #### ABG ####[facility] ([id number])[address] [facility] [place], [place] [address]GHSV. O2 CONC.40 %NormalProMedica Lynn HospitalComment on above:Performed By: #### ABG ####[facility] ([id number])[address]ANTO[facility] [place], [place] [address]Ovqukl (Bld) [Partial pressure]115 mm[Hg]Bioc68-485OupZgrgrg [facility] HospitalComment on above:Performed By: #### ABG ####[facility] ([address] [place] [address])[address] [facility], [place] [address]Grpzaj saturation in Blood98.0 %Normal>90[facility] HospitalComment on above:Performed By: #### ABG ####[facility] ([id number])[address] [facility] [place], [place] [address]YVWIAJ SOURCEVentNormalProMedica Lynn HospitalComment on above:Performed By: #### ABG ####[facility] ([id number])[address] [facility] [place], [place] [address]LEF164.3 ZPTHSodrcg19-08 [facility] HospitalComment on above:Performed By: #### ABG ####[facility] ([id number])[address], [place] [address]tJ (Bld)7.288 [pH]Low7.350-7.450ProMedica [facility] HospitalComment on above:Performed By: #### ABG ####[facility] ([address] [place] [address])[address] [place] [address] SAMPLE SITEALineNormalProGreene Memorial Hospitalca [facility] HospitalComment on above:Performed By: #### ABG ####[facility] ([address] [place] [address])[address] [place], [place] [address]HOZCTP TYPEARTERIALNormalProMedica Coolidge HospitalComment on above: Performed By: #### ABG ####[facility] ([address] [place] [address])[address] [place], [place] [address]LNQLU'S TESTNormalProGreene Memorial Hospitalca [facility] HospitalComment on above: Performed By: #### ABG ####[facility] ([address] [place] [address])[address] [place], [place] [address]TWTA,DEFICIT6.0 MMOL/LHigh0.0-2.0ProGreene [facility] Hospitalca [facility] Comment on above:Performed By: #### ABG ####[facility] ([address] [place] [address])[address] [place], [place] [address]Jphs ptouzluxzmk71.6 [degF]Normal 37.0ProGreene Memorial Hospitalca [facility] HospitalComment on above:Performed By: #### ABG ####[facility] ([address] [place] [address])[address] [place], [place] [address]WSL6 (Bld) [Moles/Vol]20.7 mmol/LHap98-15QlgTzousa [facility] HospitalComment on above: Performed By: #### ABG ####[facility] ([address] [place] [address])[address] [place], [place] [address]OZGE. O2 CONC.40 %NormalProMedica Coolidge HospitalComment on above:Performed By: #### ABG ####[facility] ([address] [place] [address])[address] [place], [place] [address]Djfzrg (Bld) [Partial pressure]94 mm[Hg]Wuuerz42-921 ProMmoody hospitala [facility] HospitalComment on above:Performed By: #### ABG ####[facility] ([address] [place] [address])[address] [place], [place] [address]Uqwoxf saturation in Blood96.0 %Normal>90[facility] HospitalComment on above: Performed By: #### ABG ####[facility] ([address] [place] [address])[address] [place], [place] [address]HJPKVF SOURCEVentNormalProMedica Coolidge HospitalComment on above:Performed By: #### ABG ####[facility] ([address] [place] [address])[address] [place], [place] [address]XJZ708.7 CBQTHprajo32-36DzkMvkxls [facility] Comment on above:Performed By: #### ABG ####[facility] ([address] [place] [address])[address] [place], [place] [address]zR (Bld)7.275 [pH]Low7.350-7.450 [facility] HospitalComment on above:Performed By: #### ABG ####[facility] ([address] [place] [address])[address] [place], [place] [address]KBUCCV SITE ALineNormalProMedica Coolidge HospitalComment on above:Performed By: #### ABG ####[facility] ([address] [place] [address])[address] [place] [address] SAMPLE TYPEARTERIALNormalProMedica Coolidge HospitalComment on above:Performed By: #### ABG ####[facility] ([address] [place] [address])[address] [place], [place] [address]NZG AND AUTO DIFFon 81-12-2641PSEJJTET BASOPHIL0.0 X10E9/LNormal0.0-0.2 ProMmoody hospitala [facility] HospitalComment on above:Performed By: #### CBCA, CMP, , 2776-04 ####[facility] ([id number])[address], [address], [place] [address]TSRZQKYP NEUTROPHIL8.3 X10E9/LHigh1.5-6.6Pro[facility] HospitalComment on above:Performed By: #### CBCChristiano, CMP, , 2776-04 ####[facility] ([id number])[address], [address], [place] [address]Onobwgekp/100 WBC (Bld)0.4 %NormalProDoctors Hospital HospitalComment on above:Performed By: #### RENA BREAUX, , 2776-04 ####[facility] ([id number])[address], [address] [place] [address]Qyuahmhmxkk (Bld) [#/Vol]0.0 10*3/uLNormal0.0-0.4[facility] HospitalComment on above: Performed By: #### RENA BREAUX, , 2776-04 ####[facility] ([id number])[address], [address], [place] [address]Ivcugyukxyv/100 WBC (Bld) 0.3 %NormalProDoctors Hospital HospitalComment on above:Performed By: #### CBCRENA Alvarado, , 2776-04 ####[facility] ([id number])[address], [address], [place] [address]Jdgkufdfjmx distribution width (RBC) [Ratio]17.9 %High11.5-15.0[facility] HospitalComment on above:Performed By: #### CBCA, CMP, , 2776-04 ####[facility] ([id number])[address], [address], [place] [address]Jkmekcqsms (Bld) [Volume fraction]25.6 %Low 35-47[facility] HospitalComment on above:Performed By: #### CBCChristiano, CMP, , 2776-04 ####[facility] ([id number])[address], [address], [place] [address]Bcipiwjsqo (Bld) [Mass/Vol]8.4 g/dLLow11.7-15.5 [facility] HospitalComment on above:Performed By: #### CBCA, CMP, , 2776-04 ####[facility] ([id number])[address], [address], [place] [address]Mockmhmdjzz (Bld) [#/Vol]0.4 10*3/uLLow1.0-3.5[facility] HospitalComment on above:Performed By: #### CBCChristiano, CMP, , 2776-04 ####[facility] ([id number])[address], [place] [address]Efndnsurljk/100 WBC (Bld)4.6 %NormalProMedica Lynn HospitalComment on above:Performed By: #### CBCChristiano, CMP, , 2776-04 ####[facility] ([id number])[address], [address]TO[facility], [place] [address]OTI (RBC) [Entitic mass]31.2 daAozczn05-44PcsWqvdri Lynn HospitalComment on above:Performed By: #### CBCA, CMP, , 2776-04 ####[facility] ([id number])[address], [address]TO[facility], [place] [address]RCOA (RBC) [Mass/Vol]32.7 g/sWXctzbf35-15FneIrotys Lynn HospitalComment on above:Performed By: #### CBCA, CMP, , 2776-04 ####[facility] ([id number])[address], [address], [place] [address]NCE (RBC) [Entitic vol]95 lCEtyobo55-776 [facility] HospitalComment on above:Performed By: #### CBCA, CMP, , 2776-04 ####[facility] ([id number])[address], [address], [place] [address]Iyjxvyfca (Bld) [#/Vol]0.2 10*3/uLNormal0-0.9[facility] HospitalComment on above:Performed By: #### CBCA, CMP, , 2776-04 ####[facility] ([id number])[address], [address], [place] [address]Cvdekpcbh/100 WBC (Bld)2.2 %NormalProMedica Lynn HospitalComment on above:Performed By: #### CBCA, CMP, , 2776-04 ####[facility] ([id number])[address], [address], [place] [address]Vifnouhovkx/100 WBC (Bld)92.5 %NormalProMedica Lynn HospitalComment on above:Performed By: #### CBCA, CMP, , 2776-04 ####[facility] ([id number])[address], [address] [place] [address]Wxcsibgr mean volume (Bld) [Entitic vol]7.2 fLNormal7-12[facility] HospitalComment on above:Performed By: #### CBCA, CMP, , 2776-04 ####[facility] ([id number])[address], [address], [place] [address]Cgamyanpq (Bld) [#/Vol]329 10*3/iZLdyctj635-922 [facility] HospitalComment on above:Performed By: #### CBCA, CMP, , 2776-04 ####[facility] ([id number])[address], [address], [place] [address]HTN COUNT2.69 X10E12/LLow3.80-5.20[facility] Comment on above:Performed By: #### RENA BREAUX, , 2776-04 ####[facility] ([id number])[address], [address], [place] [address]DGE (Bld) [#/Vol]9.0 10*3/uLNormal4.0-11.0ProKindred Hospital LimaComment on above: Performed By: #### RENA BREAUX, , 2776-04 ####[facility] ([id number])[address] [address], [place] [address]EHEBHTPGVXWBJ METABOLIC PANELon 30-24-1194Nsafljr [Mass/Vol]3.6 g/dLNormal3.2-5.3PCleveland Clinic Euclid HospitalComment on above:Performed By: #### RENA BREAUX, , 2776-04 ####[facility] ([id number])[address] [address], [place] [address]EEB [Catalytic activity/Vol]65 U/SFmjazq96-981NfePmhzxpLima City Hospital Comment on above:Performed By: #### RENA BREAUX, , 2776-04 ####[facility] ([id number])[address]TO[facility], [place] [address]MDZ [Catalytic activity/Vol]6 U/LNormal0-31PCleveland Clinic Euclid HospitalComment on above:Performed By: #### NAMITA CMP, , 2776-04 ####[facility] ([id number])[address], [address], [place] [address]Ehqew gap [Moles/Vol]15 mmol/LNormal5-15[facility] HospitalComment on above:Performed By: #### RENA BREAUX, , 2776-04 ####[facility] ([id number])[address], [address], [place] [address]NWW [Catalytic activity/Vol]10 U/LNormal0-41 [facility] HospitalComment on above:Performed By: #### RENA BREAUX, , 2776-04 ####[facility] ([id number])[address], [address], [place] [address]Orpqshocv [Mass/Vol]0.9 mg/dLNormal0.3-1.2[facility] HospitalComment on above:Performed By: #### RENA BREAUX, , 2776-04 ####[facility] ([id number])[address], [address], [place] [address]Dozxzhr [Mass/Vol]10.0 mg/dLNormal8.5-10.5[facility] HospitalComment on above:Performed By: #### RENA BREAUX, , 2776-04 ####[facility] ([id number])[address], [place] [address]Nyoqstht [Moles/Vol]98 mmol/HEjnlhh28-700HybDjgfqj Lynn HospitalComment on above: Performed By: #### RENA BREAUX, , 2776-04 ####[facility] ([id number])[address], [address], [place] [address]XT7 [Moles/Vol]20 mmol/LLow 22-32ProMedica Lynn HospitalComment on above:Performed By: #### RENA BREAUX, , 2776-04 ####[facility] ([id number])[address], [address], [place] [address]Budjmvtxdk [Mass/Vol]2.61 mg/dLHigh0.40-1.00ProMedica Lynn HospitalComment on above:Result Comment: METHOD TRACEABLE TO IDMS STANDARDPerformed By: #### RENA BREAUX, , 2776-04 ####[facility] ([id number])[address] [address], [place] [address]MWL/1.73 sq M.predicted among non-blacks MDRD (S/P/Bld) [Vol rate/Area]20 mL/min/{1.73_m2} Low>59ProMedica Lynn HospitalComment on above:Result Comment: Reported eGFR is based on theCKD-EPI 2020 equation that doesnot use a race coefficient.Performed By: #### RENA BREAUX, , 2776-04 ####[facility] ([id number])[address] [address], [place] [address]Rbzkoxy [Mass/Vol]140 mg/dL Vlru10-91JwbHxjzwd Lynn HospitalComment on above:Performed By: #### RENA BREAUX, , 2776-04 ####[facility] ([id number])[address] [address]Iotjqqigx [Moles/Vol]4.3 mmol/LNormal3.5-5.0ProGreene Memorial Hospitalca [facility] HospitalComment on above:Performed By: #### RENA BREAUX, , 2776-04 ####[facility] ([id number])[address] [address], [place] [address]Xpsbjjr [Mass/Vol]6.7 g/dLNormal6.0-8.0Pro[facility] Lynn HospitalComment on above:Performed By: #### RENA BREAUX, , 2776-04 ####[facility] ([id number])[address] [address], [place] [address]Jmhreq [Moles/Vol]133 mmol/OBhk832-395BwrSjfgdk [facility] HospitalComment on above: Performed By: #### RENA BREAUX, , 2776-04 ####[facility] ([id number])[address], [address] [place] [address]Imdq nitrogen [Mass/Vol]95 mg/dLHigh5-27Pro[facility] HospitalComment on above:Performed By: #### RENA BREAUX, , 2776-04 ####[facility] ([id number])[address], [address] [place] [address]Egvaxrb.ionized (Bld) [Mass/Vol]on 06-24-2024 IONIZED CALCIUM5.3 mg/dLNormal4.5-5.3ProMedOhio[facility] HospitalComment on above: Performed By: #### 59656-9, 09924-2 ####[facility] ([id number])[address] [address]LGYXPORWMej 06-24-2024 Magnesium [Mass/Vol]2.2 mg/dLNormal1.8-2.6Pro[facility] HospitalComment on above:Performed By: #### RENA BREAUX, , 27710-08 ####[facility] ([id number])[address] [address]Qxpbmiqah Ionized ISE (Bld) [Moles/Vol]on 45-17-2849Guvdptuwt [Moles/Vol]0.55 mmol/LNormal0.45-0.74 [facility]idge HospitalComment on above:Result Comment: NEW REFERENCE RANGE Performed By: #### 98040-3, 31997-7 ####[facility] ([id number])[address] [address]KFIYJMHECTyd 06-24-2024 Phosphate [Mass/Vol]6.2 mg/dLHigh2.4-4.9ProKindred Hospital LimaComment on above:Performed By: #### CBCA, CMP, , 2776-04 ####[facility] ([id number])[address], [place] [address]NX CHEST 1 VWon 38-93-0560VY CHEST 1 VWNormalProMedica Van Wert County HospitalXR CHEST 1 VWNormal ProMedicUniversity [facility]als [facility]aritan Medical CenterCBC AND AUTO DIFFon 33-77-9677UEMJQIQG BASOPHIL0.1 X10E9/LNormal0.0-0.2[facility] County HospitalComment on above:Performed By: #### CBCA, CMP, , 2776-04 ####[facility] ([id number])[address], [address] [place] [address]YFEVFTTQ NEUTROPHIL7.0 X10E9/LHigh1.5-6.6 [facility] HospitalComment on above:Performed By: #### CBCA, CMP, , 2776-04 ####[facility] ([id number])[address], [address] [place] [address]100[address]Olpurqtkw/100 WBC (Bld)1.0 %NormalLima City Hospital Comment on above:Performed By: #### CBCA, CMP, , 2776-04 ####[facility] ([id number])[address], [address] [place] [address]169 Eosinophils (Bld) [#/Vol]0.3 10*3/uLNormal0.0-0.4[facility] Comment on above:Performed By: #### CBCA, CMP, , 2776-04 ####[facility] ([id number])[address], [address] [place] [address]46 Eosinophils/100 WBC (Bld)2.7 %NormalProMedica Lynn HospitalComment on above: Performed By: #### CBCA, CMP, , 2776-04 ####[facility] ([id number])[address], [address], [place] [address]Ezgpzkhmqgj distribution width (RBC) [Ratio]18.6 %High11.5-15.0ProGreene Memorial Hospitalca [facility] HospitalComment on above: Performed By: #### CBCA, CMP, , 2776-04 ####[facility] ([id number])[address], [address], [place] [address]Akrsvccgpg (Bld) [Volume fraction]23.7 %Gfw07-56MwlQfrkdq [facility] HospitalComment on above:Performed By: #### CBCA, CMP, , 2776-04 ####[facility] ([id number])[address] [address], [place] [address]Dqnyvhaoun (Bld) [Mass/Vol] 7.8 g/dLLow11.7-15.5Pro[facility]ica [facility] HospitalComment on above:Performed By: #### CBCA, CMP, , 2776-04 ####[facility] ([id number])[address] [address], [place] [address]Regugufixng (Bld) [#/Vol]1.2 10*3/uLNormal 1.0-3.5ProMedOhio[facility] HospitalComment on above:Performed By: #### CBCA, CMP, , 2776-04 ####[facility] ([id number])[address] [address], [place] [address]Hzenbeacfzp/100 WBC (Bld)12.1 %NormalProDoctors Hospital HospitalComment on above:Performed By: #### CBCA, CMP, , 2776-04 ####[facility] ([id number])[address], [address] [place] [address] 10041PRP (RBC) [Entitic mass]31.9 wqMhaiha77-15HocVhthif Lynn HospitalComment on above:Performed By: #### CBCA, CMP, , 2776-04 ####[facility] ([id number])[address], [address] [place] [address] 067[address]RJWH (RBC) [Mass/Vol]33.1 g/qUXwukhp80-07IghHevbil Lynn HospitalComment on above: Performed By: #### CBCA, CMP, , 2776-04 ####[facility] ([id number])[address], [address] [place] [address] 52928CCP (RBC) [Entitic vol]96 mBMqsdex40-643CvhLfrkya Lynn HospitalComment on above:Performed By: #### CBCA, CMP, , 2776-04 ####[facility] ([id number])[address], [address] [place] [address] 57586Lvkkgcppx (Bld) [#/Vol]1.4 10*3/uLHigh0-0.9 [facility]ica Lynn HospitalComment on above:Performed By: #### CBCA, CMP, , 2776-04 ####[facility] ([id number])[address], [address] [place] [address]482Jkppbjyfx/100 WBC (Bld)13.9 %NormalProMedica Lynn Hospital Comment on above:Performed By: #### CBCA, CMP, , 2776-04 ####[facility] ([id number])[address], [address] [place] [address] 13966 Neutrophils/100 WBC (Bld)70.3 %NormalProMedica Lynn HospitalComment on above: Performed By: #### CBCA, CMP, , 2776-04 ####[facility] ([id number])[address], [address] [place] [address] 99774Rookdapw mean volume (Bld) [Entitic vol]7.5 fLNormal7-12ProMedOhioHealth Riverside Methodist Hospital HospitalComment on above:Performed By: #### NAMITA CMP, , 2776-04 ####[facility] ([id number])[address], [address] [place] [address]Zwkbxrjlo (Bld) [#/Vol]244 10*3/jITcfczx924-650PmxRglqii [place] HospitalComment on above:Performed By: #### RENA BREAUX, , 2776-04 ####[facility] ([id number])[address], [address] [place] [address] 42951QTX COUNT2.46 X10E12/LLow3.80-5.20Pro[facility]ctors Hospital HospitalComment on above:Performed By: #### RENA BREAUX, , 2776-04 ####[facility] ([id number])[address], [address] [place] [address] 35601YAJ (Bld) [#/Vol]10.0 10*3/uLNormal4.0-11.0ProDoctors Hospital Hospital Comment on above:Performed By: #### RENA BREAUX, , 2776-04 ####[facility] ([id number])[address], [address] [place] [address] 32863 COMPREHENSIVE METABOLIC PANELon 40-66-4382Chonkmc [Mass/Vol]3.6 g/dLNormal 3.2-5.3PMercy Health [facility] Hospital HospitalComment on above:Performed By: #### NAMITA, CMP, , 2776-04 ####[facility] ([id number])[address], [address] [place] [address] 52134MMJ [Catalytic activity/Vol]68 U/QQfzjie12-335TpuCrsgrk Lynn HospitalComment on above:Performed By: #### RENA BREAUX, , 2776-04 ####[facility] ([id number])[address], [address], [place] [address]CNA [Catalytic activity/Vol]4 U/LNormal0-31ProMedica Lynn HospitalComment on above:Performed By: #### NAMITA CMP, , 2776-04 ####[facility] ([id number])[address], [address], [place] [address]Woepd gap [Moles/Vol]13 mmol/LNormal5-15[facility]ica [facility] HospitalComment on above: Performed By: #### NAMITA CMP, , 2776-04 ####[facility] ([id number])[address], [address], [place] [address]AMJ [Catalytic activity/Vol]12 U/LNormal0-41ProMedica Lynn HospitalComment on above:Performed By: #### RENA BREAUX, , 2776-04 ####[facility] ([id number])[address], [address], [place] [address]Xsrhuhsdm [Mass/Vol]0.8 mg/dLNormal0.3-1.2Pro[facility]ica Lynn HospitalComment on above:Performed By: #### NAMITA CMP, , 2776-04 ####[facility] ([id number])[address], [address], [place] [address]Cplrndm [Mass/Vol]9.7 mg/dLNormal8.5-10.5 [facility] HospitalComment on above:Performed By: #### NAMITA, CMP, , 2776-04 ####[facility] ([id number])[address], [address], [place] [address]Yqpmzccl [Moles/Vol]101 mmol/QCnvsvw17-407OuuEdevms Lynn HospitalComment on above:Performed By: #### RENA BREAUX, , 2776-04 ####[facility] ([id number])[address], [address], [place] [address]QD0 [Moles/Vol]21 mmol/MKef72-14RtjLuelto Lynn HospitalComment on above: Performed By: #### RENA BREAUX, , 2776-04 ####[facility] ([id number])[address], [address], [place] [address]Zedigxgdoc [Mass/Vol]2.08 mg/dLHigh0.40-1.00ProGre[facility] Hospitalca [facility] HospitalComment on above:Result Comment: METHOD TRACEABLE TO IDMS STANDARDPerformed By: #### RENA BREAUX, , 2776-04 ####[facility] ([id number])[address], [address], [place] [address]RMI/1.73 sq M.predicted among non-blacks MDRD (S/P/Bld) [Vol rate/Area]27 mL/min/{1.73_m2}Low>59ProMedica Lynn HospitalComment on above:Result Comment: Reported eGFR is based on theCKD-EPI 2020 equation that doesnot use a race coefficient.Performed By: #### RENA BREAUX, , 2776-04 ####[facility] ([id number])[address], [address], [place] [address]Pzdwcqk [Mass/Vol]103 mg/oVFscx49-09CysAhzqig Lynn HospitalComment on above:Performed By: #### RENA BREAUX, , 2776-04 ####[facility] ([id number])[address], [address], [place] [address]Uydrsukrb [Moles/Vol]4.3 mmol/LNormal3.5-5.0Pro[facility]ica Lynn HospitalComment on above:Performed By: #### NAMITA [facility], , 2776-04 ####[facility] ([id number])[address], [address] [place] [address]Mllznmx [Mass/Vol]6.5 g/dLNormal6.0-8.0 [facility] HospitalComment on above:Performed By: #### NAMITA [facility], , 2776-04 ####[facility] ([id number])[address], [address], [place] [address]Ukvmle [Moles/Vol]135 mmol/URnqiql510-746YzzYhicqk Lynn HospitalComment on above:Performed By: #### NAMITA [facility], , 2776-04 ####[facility] ([id number])[address], [address], [place] [address]Rwva nitrogen [Mass/Vol]73 mg/dLHigh5-27Pro[facility] HospitalComment on above:Performed By: #### RENA BREAUX, , 2776-04 ####[facility] ([id number])[address], [address] [place], [place] [address]KLGjt 06-23-2024 Hematocrit (Bld) [Volume fraction]23.2 %Hss95-21CgeQnojno [facility] HospitalComment on above:Performed By: #### HH ####[facility] ([id number])[address], [address] [address]Zjeecabkqr (Bld) [Mass/Vol]7.7 g/dLLow 11.7-15.5[facility] Lynn HospitalComment on above:Performed By: #### HH ####[facility] ([id number])[address], [address] [address]Kdiowedrjo (Bld) [Volume fraction]23.3 %Fuc01-91IkdOyldxz [facility] Comment on above:Performed By: #### HH ####[facility] ([id number])[address], [address] [place] [address]Ryyjpnpegu (Bld) [Mass/Vol] 7.6 g/dLLow11.7-15.5[facility] HospitalComment on above:Performed By: #### HH ####[facility] ([id number])[address], [address] [place] [address]BXUCYPPDIxd 36-41-4067Mmywacmqx [Mass/Vol]2.2 mg/dLNormal 1.8-2.6ProGreene Memorial Hospitalca [facility] HospitalComment on above:Performed By: #### NAMITA, CMP, 30538-2, 2777-1 ####[facility] ([id number])[address], [address] [place] [address]USIBKGBDBNex 19-56-0136Egsnknmeo [Mass/Vol]5.1 mg/dL High2.4-4.9[facility] HospitalComment on above:Performed By: #### CBCChristiano, CMP, , 2777-1 ####[facility] ([id number])[address], [place] [address]IU CHEST 1 VWon 69-43-1160KU CHEST 1 VWNormal [facility] HospitalARTERIAL BLOOD GASon 26-65-7749VBLVX'S TESTNormal [facility] HospitalComment on above:Performed By: #### ABG ####[facility] ([id number])[address] [place], [place] [address]IPSD,DEFICIT5.0 MMOL/LHigh0.0-2.0[facility] [place] HospitalComment on above:Performed By: #### ABG ####[facility] ([id number])[address] [place] [address] Body rqblckytkqe89.6 [degF]Qyhtmo36.0ProMedica Lynn HospitalComment on above: Performed By: #### ABG ####[facility] ([id number])[address] [place], [place] [address]SCL7 (Bld) [Moles/Vol]21.3 mmol/VYim73-97GtvVypxtq Lynn HospitalComment on above:Performed By: #### ABG ####[facility] ([address] [place] [address])[address] [place], [place] [address]YVAV. O2 CONC.40 %NormalProMedica Lynn HospitalComment on above:Performed By: #### ABG ####[facility] ([address] [place] [address])[address] [place], [place] [address]Gzbrbq (Bld) [Partial pressure]160 mm[Hg]Yjvi73-302IuwJqawtq Lynn HospitalComment on above:Performed By: #### ABG ####[facility] ([address] [place] [address])[address] [place], [place] [address]Rphajx saturation in Blood99.0 %Normal>90ProMedica [facility] HospitalComment on above:Performed By: #### ABG ####[facility] ([address] [place] [address])[address] [place], [place] [address]QEKUTS SOURCEVentNormalProMedica Lynn HospitalComment on above:Performed By: #### ABG ####[facility] ([address] [place] [address])[address] [place], [place] [address]YKF291.8 GIFQCumwur34-18 [facility] HospitalComment on above:Performed By: #### ABG ####[facility] ([address] [place] [address])[address] [place], [place] [address]sY (Bld)7.286 [pH]Low7.350-7.450Pro[facility]ica Lynn HospitalComment on above:Performed By: #### ABG ####[facility] ([id number])[address] [place] [address] SAMPLE SITEALineNormalProGreene Memorial Hospitalca [place] HospitalComment on above:Performed By: #### ABG ####[facility] ([id number])[address], [place] [address]WCLOCZ TYPEARTERIALNormalProDoctors Hospital HospitalComment on above: Performed By: #### ABG ####[facility] ([id number])[address] [place], [place] [address]KBJ AND AUTO DIFFon 42-22-7513CACSAWBJ BASOPHIL0.1 X10E9/L Normal0.0-0.2[facility] HospitalComment on above:Performed By: #### CBCA ####[facility] ([id number])0 [facility], [address] [place] [address]PAEKFDQD NEUTROPHIL6.5 X10E9/LNormal1.5-6.6[facility] Comment on above:Performed By: #### CBCA ####[facility] ([id number])0 [facility] [address] [place] [address]Owpjxgczz/100 WBC (Bld)1.3 %NormalLima City HospitalComment on above:Performed By: #### CBCA ####[facility] ([id number])[address] [address] [place] [address]Ncbtsieklfz (Bld) [#/Vol]0.3 10*3/uLNormal0.0-0.4[facility] Comment on above:Performed By: #### CBCA ####[facility] ([id number])[address] [address] [place] [address] 12032Zfadjjkdust/100 WBC (Bld) 2.9 %NormalLake County Memorial Hospital - West HospitalComment on above:Performed By: #### CBCA ####[facility] ([id number])[address], [address], [place] [address]Dupomzvrmid distribution width (RBC) [Ratio]18.8 %High11.5-15.0[facility] HospitalComment on above:Performed By: #### CBCA ####[facility] ([id number])[address], [address], [place] [address]Vwmmegacqx (Bld) [Volume fraction]24.8 %Flb21-63VdmHfsjhi [place] HospitalComment on above: Performed By: #### CBCA ####[facility] ([id number])[address] [address], [place] [address]Gmgapdncyk (Bld) [Mass/Vol]8.2 g/dLLow 11.7-15.5PMercy Health [facility] HospitalComment on above:Performed By: #### CBCA ####[facility] ([id number])[address] [address], [place] [address]Ovhkfpotsah (Bld) [#/Vol]1.5 10*3/uLNormal1.0-3.5[facility] Comment on above:Performed By: #### CBCA ####[facility] ([id number])[address] [address], [place] [address]Lanrmyphdbv/100 WBC (Bld) 16.4 %NormalProDoctors Hospital HospitalComment on above:Performed By: #### CBCA ####[facility] ([id number])[address] [address], [place] [address]PSF (RBC) [Entitic mass]31.9 ecKbyuys54-88YhuJbkwqe [place] HospitalComment on above:Performed By: #### CBCA ####[facility] ([id number])[address], [address], [place] [address]UYCL (RBC) [Mass/Vol]33.0 g/iTTyubjj29-55YvdYsqbdv Lynn HospitalComment on above:Performed By: #### CBCA ####[facility] ([id number])[address], [address], [place] [address]JAW (RBC) [Entitic vol]97 bLPjixsm64-219QlbJciigs Lynn HospitalComment on above:Performed By: #### CBCA ####[facility] ([id number])[address], [address], [place] [address]Mrwgxgtdl (Bld) [#/Vol]1.0 10*3/uLHigh0-0.9Pro[facility] HospitalComment on above:Performed By: #### CBCA ####[facility] ([id number])[address], [address], [place] [address]Ywpdqtdap/100 WBC (Bld)10.3 %NormalProMedica [facility] Hospital Comment on above:Performed By: #### CBCA ####[facility] ([id number])[address], [address], [place] [address]Jlknpfvmawq/100 WBC (Bld) 69.1 %NormalProMedica Lynn HospitalComment on above:Performed By: #### CBCA ####[facility] ([id number])[address], [address] [place] [address]Lltdykam mean volume (Bld) [Entitic vol]7.4 fLNormal7-12[facility] HospitalComment on above:Performed By: #### CBCA ####[facility] ([id number])[address], [address], [place] [address]Sjwnmgmox (Bld) [#/Vol] 164 10*3/zRPuqwjy904-868AlsGszrnx Lynn HospitalComment on above:Performed By: #### CBCA ####[facility] ([id number])[address], [address] [place] [address]WNH COUNT2.57 X10E12/LLow3.80-5.20Pro[facility]ca [facility] Comment on above:Performed By: #### CBCA ####[facility] ([id number])[address], [address] [place] [address]QOY (Bld) [#/Vol]9.4 10*3/uLNormal4.0-11.0[facility] HospitalComment on above:Performed By: #### CBCA ####[facility] ([id number])[address], [address] [place] [address]YOYMCDAVHAKBF METABOLIC PANELon 33-72-1270Bnjqprx [Mass/Vol] 3.8 g/dLNormal3.2-5.3[facility] HospitalComment on above:Performed By: #### RENA, , 2777-1 ####[facility] ([id number])[address], [place] [address]YSF [Catalytic activity/Vol]76 U/LNormal 39-130ProMedica [facility] HospitalComment on above:Performed By: #### CMP, , 2776- ####[facility] ([id number])[address], [address], [place] [address]LJP [Catalytic activity/Vol]4 U/LNormal0-31[facility] HospitalComment on above:Performed By: #### CMP, , 7- ####[facility] ([id number])[address], [place] [address]Xtgcf gap [Moles/Vol]13 mmol/LNormal5-15Pro[facility] Hospitalca [facility] HospitalComment on above: Performed By: #### CMP, , 2777-1 ####[facility] ([id number])[address], [address], [place] [address]BIR [Catalytic activity/Vol]17 U/LNormal0-41Pro[facility] Hospitalca [facility] HospitalComment on above:Performed By: #### RENA, , 2776-04 ####[facility] ([id number])[address], [address], [place] [address]Vxqeobqik [Mass/Vol]0.9 mg/dLNormal0.3-1.2 [facility] HospitalComment on above:Performed By: #### RENA, , ####[facility] ([id number])[address], [address], [place] [address]Yzulhjt [Mass/Vol]9.4 mg/dLNormal8.5-10.5[facility] Comment on above:Performed By: #### RENA, , 2776-04 ####[facility] ([id number])[address], [address], [place] [address]Wrjcqych [Moles/Vol]101 mmol/ARgwgyw71-632JsfYzltem Lynn HospitalComment on above: Performed By: #### RENA, , 2776-04 ####[facility] ([id number])[address], [address], [place] [address]LD[address] [Moles/Vol]21 mmol/LLow 22-32PMercy Health [facility] Hospital HospitalComment on above:Performed By: #### RENA, , 2776-04 ####[facility] ([id number])[address], [address], [place] [address]Vlmkiujmed [Mass/Vol]1.48 mg/dLHigh0.40-1.00Pro[facility] Lynn HospitalComment on above:Result Comment: METHOD TRACEABLE TO IDMS STANDARD Performed By: #### RENA, , 2776-04 ####[facility] ([id number])[address], [place] [address]ZNC/1.73 sq M.predicted among non-blacks MDRD (S/P/Bld) [Vol rate/Area]40 mL/min/{1.73_m2}Low>59 [facility] HospitalComment on above:Result Comment: Reported eGFR is based on theCKD-EPI 2020 equation that doesnot use a race coefficient.Performed By: #### RENA, , 2776-04 ####[facility] ([id number])[address] [address], [place] [address]Tlkldhq [Mass/Vol]127 mg/hSJeyj94-10 [facility] HospitalComment on above:Performed By: #### RENA, , ####[facility] ([id number])[address] [address], [place] [address]Xkddhavxf [Moles/Vol]3.8 mmol/LNormal3.5-5.0[facility] Hospital Comment on above:Performed By: #### RENA, , 2776-04 ####[facility] ([id number])[address] [address] [place] [address]Cvopurg [Mass/Vol]6.5 g/dLNormal6.0-8.0ProKindred Hospital LimaComment on above: Performed By: #### RENA, , 2776-04 ####[facility] ([id number])[address] [address], [place] [address]Ggagoi [Moles/Vol]135 mmol/BPwnhpb827-178UckVwoolm [place] HospitalComment on above:Performed By: #### RENA, , 2776-04 ####[facility] ([id number])[address] [address], [place] [address]Ntir nitrogen [Mass/Vol]40 mg/dLHigh5-27 [facility] HospitalComment on above:Performed By: #### [facility], [address]-1, 2777- 1 ####[facility] ([id number])[address], [place] [address]TRQfw 25-99-6218Xqvjynznpp (Bld) [Volume fraction]24.4 %Ukk76-76 [facility] HospitalComment on above:Performed By: #### HH ####[facility] ([id number])[address], [address] [address] Hemoglobin (Bld) [Mass/Vol]8.1 g/dLLow11.7-15.5[facility] HospitalComment on above:Performed By: #### HH ####[facility] ([id number])[address], [address] [address]Nfyzgjevyi (Bld) [Volume fraction]23.6 %Low 35-47[facility] HospitalComment on above:Performed By: #### HH ####[facility] ([id number])[address] [address] Hemoglobin (Bld) [Mass/Vol]7.8 g/dLLow11.7-15.5[facility] HospitalComment on above:Performed By: #### HH ####[facility] ([id number])[address] [address]Dkqpyljprf (Bld) [Volume fraction]20.6 %Low 35-47[facility] HospitalComment on above:Performed By: #### HH ####[facility] ([id number])[address] [address] Hemoglobin (Bld) [Mass/Vol]6.7 g/dLCritically low11.7-15.5[facility] HospitalComment on above:Performed By: #### HH ####[facility] ([id number])[address] [address]FCPQOTCSBem 06-22-2024 Magnesium [Mass/Vol]1.8 mg/dLNormal1.8-2.6[facility]idge HospitalComment on above:Performed By: #### CMP, 67124-6, 2777-1 ####[facility] ([id number])[address], [place] [address]Lfzjioitp Ionized ISE (Bld) [Moles/Vol]on 94-12-8410Aissbjviu [Moles/Vol]0.64 mmol/LNormal0.45-0.74 [facility]idge HospitalComment on above:Result Comment: NEW REFERENCE RANGE Performed By: #### 05102-2 ####[facility] ([id number])[address] [facility], [address] [place] [address]RDTCFAPFGJlj 86-97-4644Oojqtvfzb [Mass/Vol] 3.4 mg/dLNormal2.4-4.9ProGreene Memorial Hospitalca Coolidge HospitalComment on above:Performed By: #### CMP, 27464-0, 2777-1 ####[facility] ([id number])[address], [address] [place] [address]EGSENRGIThu 01-07-6352Ksbklsffn [Moles/Vol] 4.0 mmol/LNormal3.5-5.0ProGreene Memorial Hospitalca Coolidge HospitalComment on above:Performed By: #### 2823-3 ####[facility] ([id number])[address], [place] [address]BJ CHEST 1 VWon 08-68-3726VQ CHEST 1 VWNormalProMedica Coolidge HospitalARTERIAL BLOOD GASon 34-43-6773UPEDV'S TESTNormalProMedica Coolidge HospitalComment on above:Performed By: #### ABG ####[facility] ([id number])[address]TOCH[address] [place], [place] [address]RQDR,XANMDNL44.0 MMOL/LHigh0.0-2.0 [facility] HospitalComment on above:Performed By: #### ABG ####[facility] ([id number])[address], [place] [address]Nmpp .6 [degF]Rmqgfs38.0[facility] HospitalComment on above: Performed By: #### ABG ####[facility] ([address] [place] [address] [facility]ITALTOCH[facility], [place] [address]FLT4 (Bld) [Moles/Vol]16.6 mmol/PCbr65-87XwaNmkzpo Lynn HospitalComment on above:Performed By: #### ABG ####[facility] ([address] [place] [address] [address] [facility] [address]ONCyndie [address]VDT[place], [place] [address]TDGR. O2 CONC.40 %NormalProMedica Lynn HospitalComment on above:Performed By: #### ABG ####[facility] ([address] [place] [address] [address], [place] [address]Gxxaqe (Bld) [Partial pressure]165 mm[Hg]Pjxz34-139OssZdenhk Lynn HospitalComment on above:Performed By: #### ABG ####[facility] ([address] [place] [address])[address], [place] [address]Yurulb saturation in Blood99.0 %Normal>90ProMedica Lynn HospitalComment on above:Performed By: #### ABG ####[facility] ([address] [place] [address])[address], [place] [address]QDKMIM SOURCEVentNormalProMedica Lynn HospitalComment on above:Performed By: #### ABG ####[facility] ([address] [place] [address])[address] N[address] [facility] [place], [place] [address]XNL360.6 EPTPLecvwp35-07 [facility] Lynn HospitalComment on above:Performed By: #### ABG ####[facility] ([id number])[address] [place], [place] [address]nT (Bld)7.265 [pH]Low7.350-7.450ProKindred Hospital LimaComment on above:Performed By: #### ABG ####[facility] ([id number])[address] [place] [address] SAMPLE SITEALineNormalProKindred Hospital LimaComment on above:Performed By: #### ABG ####[facility] ([id number])[address] [place], [place] [address]RUVLRQ TYPEARTERIALNormalLima City HospitalComment on above: Performed By: #### ABG ####[facility] ([id number])[address] [place], [place] [address]KDT AND AUTO DIFFon 59-96-7104EHUFANIB BASOPHIL0.1 X10E9/L Normal0.0-0.2[facility] County HospitalComment on above:Performed By: #### CBCA, CMP, , 2777-1 ####[facility] ([id number])[address], [address], [place] [address]IXQRVSEL NEUTROPHIL5.1 X10E9/LNormal1.5-6.6 [facility] HospitalComment on above:Performed By: #### CBCA, CMP, , 2777- ####[facility] ([id number])[address], [address], [place] [address]Sxirvivcn/100 WBC (Bld)1.0 %NormalProKindred Hospital Lima Comment on above:Performed By: #### CBCA, CMP, , 2777- ####[facility] ([id number])[address], [address] [place] [address] Eosinophils (Bld) [#/Vol]0.2 10*3/uLNormal0.0-0.4ProGreene Memorial Hospitalca [facility] Comment on above:Performed By: #### CBCChristiano, CMP, , 2776-04 ####[facility] ([id number])[address], [address], [place] [address] Eosinophils/100 WBC (Bld)2.7 %NormalProGreene Memorial Hospitalca Coolidge HospitalComment on above: Performed By: #### CBCA, CMP, , 2776-04 ####[facility] ([id number])[address], [address], [place] [address]Olxaknzojxb distribution width (RBC) [Ratio]17.5 %High11.5-15.0ProGreene Memorial Hospitalca [facility] HospitalComment on above: Performed By: #### CBCChristiano, CMP, , 2776-04 ####[facility] ([id number])[address] [address], [place] [address]Jffiypsvbh (Bld) [Volume fraction]21.0 %Lny01-11SqyArkzum [facility]idge HospitalComment on above:Performed By: #### CBCA, CMP, , 2776-04 ####[facility] ([id number])[address] [address], [place] [address]Hyudnyynhsa (Bld) [#/Vol] 1.0 10*3/uLNormal1.0-3.5ProMedica Coolidge HospitalComment on above:Performed By: #### CBCA, CMP, , 2776-04 ####[facility] ([id number])[address] [address], [place] [address]Uvdpsnocpov/100 WBC (Bld) 14.1 %NormalProMedica Lynn HospitalComment on above:Performed By: #### CBCA, CMP, , 2776-04 ####[facility] ([id number])[address], [address], [place] [address]SEE (RBC) [Entitic mass]32.8 lfHkokae95-97 [facility] Lynn HospitalComment on above:Performed By: #### CBCA, CMP, , 2776-04 ####[facility] ([id number])[address], [address], [place] [address]LMQA (RBC) [Mass/Vol]33.1 g/tIDbapkz67-79SvhAfewzj Lynn HospitalComment on above:Performed By: #### CBCA, CMP, , 2776-04 ####[facility] ([id number])[address], [address] [place] [address]ZWN (RBC) [Entitic vol]99 gIMohkpu00-645WfbGlankc Lynn HospitalComment on above:Performed By: #### CBCA, CMP, , 2776-04 ####[facility] ([id number])[address], [address] [place] [address]Bilsdfiiw (Bld) [#/Vol]0.7 10*3/uLNormal0-0.9ProMedica Lynn HospitalComment on above:Performed By: #### CBCA, CMP, , 2776-04 ####[facility] ([id number])[address], [address], [place] [address]Aidvznzxf/100 WBC (Bld)10.5 %NormalProMedica Lynn HospitalComment on above:Performed By: #### CBCA, CMP, , 2776-04 ####[facility] ([id number])[address], [address] [place] [address]Nxhuhoprnwh/100 WBC (Bld)71.7 %NormalProMedica Lynn HospitalComment on above:Performed By: #### CBCA, CMP, , 2776-04 ####[facility] ([id number])[address], [address], [place] [address]Ekthvtzx mean volume (Bld) [Entitic vol]7.9 fLNormal7-12Pro[facility]ica Lynn HospitalComment on above:Performed By: #### NAMITA CMP, , 2776-04 ####[facility] ([id number])[address], [address], [place] [address]Oxifoywlc (Bld) [#/Vol]78 10*3/jUFne242-404VhkSqlbve Lynn HospitalComment on above:Performed By: #### NAMITA CMP, , 2776-04 ####[facility] ([id number])[address], [address] [place] [address]BBF COUNT2.12 X10E12/LLow3.80-5.20Pro[facility]ica Lynn HospitalComment on above:Performed By: #### NAMITA CMP, , 2776-04 ####[facility] ([id number])[address] [address], [place] [address]JUJ (Bld) [#/Vol]7.1 10*3/uLNormal4.0-11.0 [facility] Lynn HospitalComment on above:Performed By: #### NAMITA, CMP, , 2776-04 ####[facility] ([id number])[address] [address], [place] [address]ZOAGPYCAUOIDN METABOLIC PANELon 27-39-7382Ugdlpsi [Mass/Vol] 3.7 g/dLNormal3.2-5.3ProMedica Lynn HospitalComment on above:Performed By: #### NAMITA, CMP, , 2776-04 ####[facility] ([id number])[address] [address], [place] [address]FYC [Catalytic activity/Vol]66 U/OWeymwi14-741BkjEordog Lynn HospitalComment on above: Performed By: #### RENA BREAUX, , 2776- ####[facility] ([id number])[address], [address], [place] [address]OWJ [Catalytic activity/Vol]3 U/LNormal0-31Pro[facility] Lynn HospitalComment on above:Performed By: #### NAMITA CMP, , 2776-04 ####[facility] ([id number])[address], [address], [place] [address]Owdhm gap [Moles/Vol]15 mmol/LNormal5-15[facility] Lynn HospitalComment on above:Performed By: #### RENA BREAUX, , 2776-04 ####[facility] ([id number])[address], [address], [place] [address]ECN [Catalytic activity/Vol]11 U/LNormal0-41 [facility]idge HospitalComment on above:Performed By: #### NAMITA CMP, , 2776-04 ####[facility] ([id number])[address], [address], [place] [address]Unttbvehk [Mass/Vol]0.7 mg/dLNormal0.3-1.2ProMedOhioHealth [facility] Hospital HospitalComment on above:Performed By: #### NAMITA, CMP, , 2776-04 ####[facility] ([id number])[address], [address], [place] [address]Iojmgbl [Mass/Vol]9.4 mg/dLNormal8.5-10.5ProMedbibb medical center Lynn HospitalComment on above:Performed By: #### NAMITA CMP, , 2776-04 ####[facility] ([id number])[address], [address], [place] [address]Liebkzxk [Moles/Vol]107 mmol/ZLfjwpb04-874VuyKsuzcr [facility] HospitalComment on above: Performed By: #### RENA BREAUX, , 2776-04 ####[facility] ([id number])[address], [address], [place] [address]BK3 [Moles/Vol]18 mmol/LLow 22-32Pro[facility] HospitalComment on above:Performed By: #### RENA BREAUX, , 2776-04 ####[facility] ([id number])[address], [address], [place] [address]Ymofdnwvmy [Mass/Vol]2.04 mg/dLHigh0.40-1.00ProDoctors Hospital HospitalComment on above:Result Comment: METHOD TRACEABLE TO IDMS STANDARDPerformed By: #### RENA BREAUX, , 2776-04 ####[facility] ([id number])[address], [address], [place] [address]DSM/1.73 sq M.predicted among non-blacks MDRD (S/P/Bld) [Vol rate/Area]27 mL/min/{1.73_m2} Low>59Pro[facility] HospitalComment on above:Result Comment: Reported eGFR is based on theCKD-EPI 2020 equation that doesnot use a race coefficient.Performed By: #### RENA BREAUX, , 2776-04 ####[facility] ([id number])[address], [address], [place] [address]Itaaqdo [Mass/Vol]98 mg/dL Ghzxzg67-40XfnPejaeu [facility] HospitalComment on above:Performed By: #### RENA BREAUX, , 2776-04 ####[facility] ([id number])[address], [address], [place] [address]Rkllatfvp [Moles/Vol]3.8 mmol/LNormal3.5-5.0 [facility] HospitalComment on above:Performed By: #### RENA BREAUX, , 2776-04 ####[facility] ([id number])[address], [address], [place] [address]Kkdrwwx [Mass/Vol]6.1 g/dLNormal6.0-8.0Pro[facility] Lynn HospitalComment on above:Performed By: #### RENA BREAUX, , 2776-04 ####[facility] ([id number])[address], [address], [place] [address]Aonkwu [Moles/Vol]140 mmol/MDikydl664-557IvvFlchlh Lynn HospitalComment on above:Performed By: #### RENA BREAUX, , 2776-04 ####[facility] ([id number])[address], [address], [place] [address]Cfos nitrogen [Mass/Vol]55 mg/dLHigh5-27Pro[facility] Lynn HospitalComment on above:Performed By: #### RENA BREAUX, , 2776-04 ####[facility] ([id number])[address], [address], [place] [address]EYGgv 87-41-7747Phmxsllcnw (Bld) [Volume fraction]21.9 %Yki51-00RiuNstbwz Lynn HospitalComment on above: Performed By: #### HH ####[facility] ([id number])[address], [address] [address]Tbwrflwiuy (Bld) [Mass/Vol]7.1 g/dLLow 11.7-15.5Pro[facility] Lynn HospitalComment on above:Performed By: #### HH ####[facility] ([id number])[address], [address],[place] [address]Uttqkbwzmw (Bld) [Volume fraction]21.6 %Juf18-88UegBxkjnq [facility] Comment on above:Performed By: #### HH ####[facility] ([id number])[address], [address] [place] [address]Rfelxndkam (Bld) [Mass/Vol] 7.0 g/dLLow11.7-15.5[facility] HospitalComment on above:Performed By: #### HH ####[facility] ([id number])[address], [address] [place] [address]Lkqqpqlfh By: #### RENA BREAUX, , 2777-1 ####[facility] ([id number])[address], [address] [place] [address] MAGNESIUMon 13-80-7050Hdtvlntah [Mass/Vol]2.0 mg/dLNormal1.8-2.6ProGre[facility] Hospitalca [facility] HospitalComment on above:Performed By: #### RENA BREAUX, , 2776-1 ####[facility] ([id number])[address], [address] [place] [address]NEITOJEGDTad 29-14-9160Pseiclied [Mass/Vol]5.5 mg/dLHigh2.4-4.9Pro[facility] Hospital HospitalComment on above:Performed By: #### RENA BREAUX, , 2776-1 ####[facility] ([id number])[address], [address], [place] [address]YIQDGCYAXmz 53-70-0894Iwkqowqhi [Moles/Vol]4.0 mmol/LNormal3.5-5.0 [facility] HospitalComment on above:Performed By: #### 2823-3 ####[facility] ([id number])[address], [address], [place] [address]DC CHEST 1 VWon 84-96-7024MY CHEST 1 VWNormalProMedica Lynn HospitalARTERIAL BLOOD GASon 46-45-8953KVCQW'S TESTPassNormalProMedica Lynn HospitalComment on above:Performed By: #### ABG ####[facility] ([id number])[address] [facility], [place] [address]KFBD,DEFICIT6.0 MMOL/LHigh0.0-2.0[facility] HospitalComment on above:Performed By: #### ABG ####[facility] ([address] [place] [address]141 [facility] [place], [place] [address]Trmv twwgfsfnaix27.6 [degF]Normal 37.0[facility] HospitalComment on above:Performed By: #### ABG ####[facility] ([address] [place] [address])[address] [place], [place] [address]FPH5 (Bld) [Moles/Vol]20.1 mmol/DBqj55-40BjmBdxpho [facility] HospitalComment on above: Performed By: #### ABG ####[facility] ([address] [place] [address])[address] [facility] [place], [place] [address]YSUL. O2 CONC.40 %NormalProMedica Coolidge HospitalComment on above:Performed By: #### ABG ####[facility] ([address] [place] [address])[address]141 [facility] [place], [place] [address]Cemdqu (Bld) [Partial pressure]101 mm[Hg]Pdfj66-476 [facility] HospitalComment on above:Performed By: #### ABG ####[facility] ([address] [place] [address])[address] [facility], [place] [address]Rulmvr saturation in Blood97.0 %Normal>90[facility] HospitalComment on above: Performed By: #### ABG ####[facility] ([id number])[address] [facility], [place] [address]DASKEG SOURCEVentNormalProMedica [facility]idge HospitalComment on above:Performed By: #### ABG ####[facility] ([id number])[address] [place], [place] [address]GWS763.3 DORYAkixph78-37GomQtlkcq [facility] Comment on above:Performed By: #### ABG ####[facility] ([id number])[address] [place], [place] [address]xT (Bld)7.274 [pH]Low7.350-7.450 [facility] HospitalComment on above:Performed By: #### ABG ####[facility] ([id number])[address] [place], [place] [address]WSDJEE SITE ALineNormalProKindred Hospital LimaComment on above:Performed By: #### ABG ####[facility] ([id number])[address] [place] [address] SAMPLE TYPEARTERIALNormalLake County Memorial Hospital - West HospitalComment on above:Performed By: #### ABG ####[facility] ([id number])[address] [place], [place] [address]DXS AND AUTO DIFFon 52-95-3330BOCCOEOU BASOPHIL0.1 X10E9/LNormal0.0-0.2 [place] [facility] HospitalComment on above:Performed By: #### CBCA, CMP, 81497-2, 2777-1 ####[facility] ([id number])[address], [address]TO[facility], [place] [address]LTAHSRLG NEUTROPHIL3.8 X10E9/LNormal1.5-6.6[facility] HospitalComment on above:Performed By: #### CBCA, CMP, 08278-0, 2777-1 ####[facility] ([id number])[address], [address], [place] [address]Mczibgcaz/100 WBC (Bld)1.0 %NormalProMedica Lynn HospitalComment on above:Performed By: #### CBCA, CMP, , 2776-04 ####[facility] ([id number])[address], [address] [place] [address]Xafacrhcick (Bld) [#/Vol]0.3 10*3/uLNormal0.0-0.4[facility] Lynn HospitalComment on above: Performed By: #### CBCA, CMP, , 2776-04 ####[facility] ([id number])[address], [address], [place] [address]Dzmtoyakngr/100 WBC (Bld) 4.8 %NormalProMedica Lynn HospitalComment on above:Performed By: #### CBCA, CMP, , 2776-04 ####[facility] ([id number])[address], [address], [place] [address]Ojvzeiopsws distribution width (RBC) [Ratio]17.9 %High11.5-15.0[facility] Lynn HospitalComment on above:Performed By: #### CBCA, CMP, , 2776-04 ####[facility] ([id number])[address] [address] [place] [address]Xgjvhlsmcj (Bld) [Volume fraction]22.6 %Low 35-47Pro[facility] Lynn HospitalComment on above:Performed By: #### CBCA, CMP, , 2776-04 ####[facility] ([id number])[address], [address] [place] [address]Aewmzocpbi (Bld) [Mass/Vol]7.2 g/dLLow11.7-15.5 [facility] HospitalComment on above:Performed By: #### CBCA, CMP, , 2776-04 ####[facility] ([id number])[address], [address], [place] [address]Kimkngxdokb (Bld) [#/Vol]1.0 10*3/uLNormal1.0-3.5[facility] HospitalComment on above:Performed By: #### CBCA, CMP, , 2776-04 ####[facility] ([id number])[address], [address], [place] [address]Lyymbtifgau/100 WBC (Bld)17.1 %NormalProDoctors Hospital HospitalComment on above:Performed By: #### CBCA, CMP, , 2776-04 ####[facility] ([id number])[address], [address] [place] [address]FDL (RBC) [Entitic mass]31.8 qtKjfgqj84-78MowWcktic [facility] HospitalComment on above:Performed By: #### CBCA, CMP, , 2776-04 ####[facility] ([id number])[address], [address] [place] [address]WEIR (RBC) [Mass/Vol]31.8 g/lORwy98-16GjwRqynwb [place] HospitalComment on above:Performed By: #### CBCA, CMP, , 2776-04 ####[facility] ([id number])[address], [address], [place] [address]WEY (RBC) [Entitic vol]100 tRApkknl02-022 [facility] HospitalComment on above:Performed By: #### CBCA, CMP, , 2776-04 ####[facility] ([id number])[address], [address] [place] [address]Xkgcttzmg (Bld) [#/Vol]0.7 10*3/uLNormal0-0.9[facility] HospitalComment on above:Performed By: #### CBCA, CMP, , 2776-04 ####[facility] ([id number])[address], [address], [place] [address]Bueqbvrts/100 WBC (Bld)11.9 %NormalProGreene Memorial Hospitalca [facility] HospitalComment on above:Performed By: #### CBCA, CMP, , 2776-04 ####[facility] ([id number])[address], [address]TO[facility], [place] [address]Prinspezcbs/100 WBC (Bld)65.2 %NormalProGreene Memorial Hospitalca [facility] HospitalComment on above:Performed By: #### CBCA, CMP, , 2776-04 ####[facility] ([id number])[address], [address]TO[facility], [place] [address]Sfdephox mean volume (Bld) [Entitic vol]7.6 fLNormal7-12[facility] HospitalComment on above:Performed By: #### CBCA, CMP, , 2776-04 ####[facility] ([id number])[address], [address]TO[facility], [place] [address]Kzjziusgt (Bld) [#/Vol]58 10*3/cXAvd738-774 [facility] HospitalComment on above:Performed By: #### CBCA, CMP, , 2776-04 ####[facility] ([id number])[address], [address], [place] [address]AHG COUNT2.26 X10E12/LLow3.80-5.20[facility] Comment on above:Performed By: #### CBCA, CMP, , 2776-04 ####[facility] ([id number])[address], [address], [place] [address]MKN (Bld) [#/Vol]5.8 10*3/uLNormal4.0-11.0[facility] HospitalComment on above: Performed By: #### NAMITA CMP, , 2776- ####[facility] ([id number])[address], [address], [place] [address]VYTNEAJQUPCYG METABOLIC PANELon 94-29-6238Aarfvaa [Mass/Vol]3.6 g/dLNormal3.2-5.3[facility] HospitalComment on above:Performed By: #### NAMITA, CMP, , 2776- ####[facility] ([id number])[address], [address], [place] [address]ZXB [Catalytic activity/Vol]61 U/TNalwlo52-281OwzTqglwb [facility] Comment on above:Performed By: #### NAMITA CMP, , 2776-04 ####[facility] ([id number])[address], [address], [place] [address]JQI [Catalytic activity/Vol]U/LNormal0-31[facility] HospitalComment on above: Performed By: #### NAMITA, CMP, , 2776-04 ####[facility] ([id number])[address], [address], [place] [address]Qpkml gap [Moles/Vol]10 mmol/LNormal5-15[facility] HospitalComment on above:Performed By: #### CLARIBELA, CMP, , 2776-04 ####[facility] ([id number])[address], [address], [place] [address]DTP [Catalytic activity/Vol]11 U/LNormal0-41 [facility] HospitalComment on above:Performed By: #### CBCA, CMP, , 2776- ####[facility] ([id number])[address], [address], [place] [address]Wwhtgejup [Mass/Vol]0.8 mg/dLNormal0.3-1.2PMer[facility] HospitalComment on above:Performed By: #### RENA BREAUX, , 2776-04 ####[facility] ([id number])[address], [address], [place] [address]Airylev [Mass/Vol]9.0 mg/dLNormal8.5-10.5PMer[facility] HospitalComment on above:Performed By: #### RENA BREAUX, , 2776-04 ####[facility] ([id number])[address], [address], [place] [address]Vsyrkiie [Moles/Vol]108 mmol/QCkhxis33-305XpcRylbii [place] HospitalComment on above: Performed By: #### RENA BREAUX, , 2776-04 ####[facility] ([id number])[address] [address], [place] [address]CU3 [Moles/Vol]21 mmol/LLow 22-32PMer[facility] HospitalComment on above:Performed By: #### RENA BREAUX, , 2776-04 ####[facility] ([id number])[address] [address], [place] [address]Bgcurphner [Mass/Vol]1.44 mg/dLHigh0.40-1.00[facility] HospitalComment on above:Result Comment: METHOD TRACEABLE TO IDMS STANDARDPerformed By: #### RENA BREAUX, , 2776-04 ####[facility] ([id number])[address] [address] [place] [address]SJJ/1.73 sq M.predicted among non-blacks MDRD (S/P/Bld) [Vol rate/Area]41 mL/min/{1.73_m2} Low>59[facility] HospitalComment on above:Result Comment: Reported eGFR is based on theCKD-EPI 2020 equation that doesnot use a race coefficient.Performed By: #### RENA BREAUX, , 2776-04 ####[facility] ([id number])[address], [address], [place] [address]Mlpdccn [Mass/Vol]82 mg/dL Vzyurt30-06OxzRckoet [place] HospitalComment on above:Performed By: #### RENA BREAUX, , 2776-04 ####[facility] ([id number])[address], [address], [place] [address]Rocnjgirm [Moles/Vol]3.7 mmol/LNormal3.5-5.0 ProMAdena Regional Medical CenterComment on above:Performed By: #### RENA BREAUX, , 2776-04 ####[facility] ([id number])[address], [place] [address]Suepsid [Mass/Vol]5.8 g/dLLow6.0-8.0[facility] Comment on above:Performed By: #### RENA BREAUX, , 2776-04 ####[facility] ([id number])[address] [address] [place] [address] Sodium [Moles/Vol]139 mmol/IZgbzhv227-061MfwToanvg [place] HospitalComment on above:Performed By: #### RENA BREAUX, , 2776-04 ####[facility] ([id number])[address] [address] [place], [place] [address]Iyri nitrogen [Mass/Vol]30 mg/dLHigh5-27ProKindred Hospital LimaComment on above:Performed By: #### RENA BREAUX, , 2776-04 ####[facility] ([id number])[address], [place] [address]JRMoz 13-73-8798Wzbxfvxzxn (Bld) [Volume fraction]21.9 %Ncp19-73DzyWdkxkq [place] HospitalComment on above: Performed By: #### HH ####[facility] ([id number])[address], [address] [place] [address]Jnjrhjzypl (Bld) [Mass/Vol]7.2 g/dLLow 11.7-15.5PMercy [facility] HospitalComment on above:Performed By: #### HH ####[facility] ([id number])[address], [address] [place] [address]Cqneojtxdq (Bld) [Volume fraction]23.0 %Mrd00-40KovRkimvb [place] [facility] Comment on above:Performed By: #### HH ####[facility] ([id number])[address] [address] [place] [address]Hvhotjgjwq (Bld) [Mass/Vol] 7.5 g/dLLow11.7-15.5PMercy Health [facility] HospitalComment on above:Performed By: #### HH ####[facility] ([id number])[address] [address] [place] [address]Cnfuwje (P mikey) [Moles/Vol]on 43-99-1773TOBPZXF W/REFLEX1.4 mmol/LNormal0.4-2.0[facility] HospitalComment on above:Result Comment: Result did not trigger repeat Lactate,re-order if needed.Performed By: #### 30206-2 ####[facility] ([id number])[address] [address] [place] [address]JOKVLKHSRbd 53-60-9982Ceqwyngay [Mass/Vol]2.1 mg/dLNormal 1.8-2.6[facility] HospitalComment on above:Performed By: #### CBCA, CMP, 47173-2, 2777-1 ####[facility] ([id number])[address], [address], [place] [address]QXUFWCITKEai 23-53-6003Pbkshmhtx [Mass/Vol]4.3 mg/dL Normal2.4-4.9[place] HospitalComment on above:Performed By: #### CBCA, CMP, , 2776-04 ####[facility] ([id number])[address], [place] [address]RH CHEST 1 VWon 88-22-3366TZ CHEST 1 VWNormal ProMAdena Regional Medical CenterCB AND AUTO DIFFon 79-41-0934AJKGPFUP BASOPHIL0.1 X10E9/LNormal0.0-0.2PCleveland Clinic Euclid HospitalComment on above:Performed By: #### CBCA CMP, , 2776-04 ####[facility] ([id number])[address], [address] [place] [address] 82996RBLUIVGS NEUTROPHIL3.5 X10E9/LNormal1.5-6.6 [place] HospitalComment on above:Performed By: #### CBCA, CMP, , 2776-04 ####[facility] ([id number])[address] [address] [place] [address]Qrwghhpqk/100 WBC (Bld)1.2 %NormalLima City Hospital Comment on above:Performed By: #### CBCA, CMP, , 2776-04 ####[facility] ([id number])[address], [address] [place] [address] Eosinophils (Bld) [#/Vol]0.3 10*3/uLNormal0.0-0.4[facility] [facility] Comment on above:Performed By: #### CBCA, CMP, , 2776-04 ####[facility] ([id number])[address] [address] [address] Eosinophils/100 WBC (Bld)4.7 %NormalProGreene Memorial Hospitalca [place] HospitalComment on above: Performed By: #### CBCChristiano, CMP, , 2776-04 ####[facility] ([id number])[address], [address], [place] [address]Orndmbbxrfi distribution width (RBC) [Ratio]17.6 %High11.5-15.0ProGreene Memorial Hospitalca [place] HospitalComment on above: Performed By: #### CBCA, CMP, , 2776-04 ####[facility] ([id number])[address] [address], [place] [address]Cdhfymqkgx (Bld) [Volume fraction]22.5 %Hwu94-79RypZfioux [place] HospitalComment on above:Performed By: #### CBCChristiano, CMP, , 2776-04 ####[facility] ([id number])[address] [address], [place] [address]Elvvswlaax (Bld) [Mass/Vol] 7.4 g/dLLow11.7-15.5PMercy Health [facility] Hospital HospitalComment on above:Performed By: #### CBCA, CMP, , 2776-04 ####[facility] ([id number])[address] [address], [place] [address]Ouvqthtyxsw (Bld) [#/Vol]1.2 10*3/uLNormal 1.0-3.5[facility] HospitalComment on above:Performed By: #### CBCA, CMP, , 2776-04 ####[facility] ([id number])[address] [address] [place], [place] [address]Pktvmtyiupr/100 WBC (Bld)21.1 %NormalProGreene Memorial Hospitalca [place] HospitalComment on above:Performed By: #### CBCA, CMP, , 2776-04 ####[facility] ([id number])[address], [address] [place] [address]QZV (RBC) [Entitic mass]31.7 fsQjrvku33-23LptObncgq [place] HospitalComment on above:Performed By: #### CBCA, CMP, , 2776-04 ####[facility] ([id number])[address], [address] [place] [address]RTIE (RBC) [Mass/Vol]32.7 g/sVXpiysf51-54UswPfcxkh [place] HospitalComment on above: Performed By: #### CBCA, CMP, , 2776-04 ####[facility] ([id number])[address], [address] [place] [address]MRU (RBC) [Entitic vol]97 eHDzvarv59-576SfuWmraej [place] HospitalComment on above:Performed By: #### CBCA, CMP, , 2776-04 ####[facility] ([id number])[address], [address] [place] [address]Xqzinasof (Bld) [#/Vol]0.8 10*3/uLNormal0-0.9 [facility] HospitalComment on above:Performed By: #### CBCA, CMP, , 2776-04 ####[facility] ([id number])[address], [address] [place] [address]Gbqheheom/100 WBC (Bld)13.6 %NormalProGreene Memorial Hospitalca [facility] Comment on above:Performed By: #### CBCA, CMP, , 2776-04 ####[facility] ([id number])[address], [address] [place] [address] Neutrophils/100 WBC (Bld)59.4 %NormalProMedica Lynn HospitalComment on above: Performed By: #### CBCA, CMP, , 2776-04 ####[facility] ([id number])[address], [address] [place] [address]Zsjuonqs mean volume (Bld) [Entitic vol]7.0 fLNormal7-12[facility] HospitalComment on above:Performed By: #### CBCA, CMP, , 2776-04 ####[facility] ([id number])[address], [address] [place] [address]Mklaarter (Bld) [#/Vol]65 10*3/lLKba356-904UjkUbwfem [facility] HospitalComment on above:Performed By: #### CBCChristiano, CMP, , 2776-04 ####[facility] ([id number])[address], [address] [place] [address]UNJ COUNT2.32 X10E12/LLow3.80-5.20[facility] HospitalComment on above:Performed By: #### CBCChristiano, CMP, , 2776-04 ####[facility] ([id number])[address], [address] [place] [address]990NNA (Bld) [#/Vol]5.9 10*3/uLNormal4.0-11.0[facility] HospitalComment on above:Performed By: #### CBCA, CMP, , 2776-04 ####[facility] ([id number])[address], [address] [place] [address]UCDNVWADCOSBB METABOLIC PANELon 22-13-2803Qletjwo [Mass/Vol]3.2 g/dLNormal3.2-5.3[facility] HospitalComment on above:Performed By: #### CBCA, CMP, , 2777-1 ####[facility] ([id number])[address], [address], [place] [address]ZNT [Catalytic activity/Vol]65 U/UYtapmi20-708XugHkpvmc [place] [facility] Comment on above:Performed By: #### RENA BREAUX, , 2776-04 ####[facility] ([id number])[address], [address], [place] [address]GPW [Catalytic activity/Vol]4 U/LNormal0-31[facility]Ohio[facility] HospitalComment on above:Performed By: #### RENA BREAUX, , 2776-04 ####[facility] ([id number])[address], [address], [place] [address]Ckuci gap [Moles/Vol]8 mmol/LNormal5-15[facility] HospitalComment on above:Performed By: #### RENA BREAUX, , 2776-04 ####[facility] ([id number])[address], [address], [place] [address]DAL [Catalytic activity/Vol]11 U/LNormal0-41 [facility] HospitalComment on above:Performed By: #### RENA BREAUX, , 2776-04 ####[facility] ([id number])[address], [address], [place] [address]Zwudjtmef [Mass/Vol]1.1 mg/dLNormal0.3-1.2[facility]Ohio[facility] HospitalComment on above:Performed By: #### NAMITA CMP, , 2776-04 ####[facility] ([id number])[address], [address], [place] [address]Vvjiepw [Mass/Vol]8.6 mg/dLNormal8.5-10.5[facility] [place] HospitalComment on above:Performed By: #### NAMITA CMP, , 2776-04 ####[facility] ([id number])[address], [address], [place] [address]Ffbopksg [Moles/Vol]107 mmol/EKqplnl14-986IhsHlxmyi [place] HospitalComment on above: Performed By: #### RENA BREAUX, , 2776-04 ####[facility] ([id number])[address], [address], [place] [address]LN7 [Moles/Vol]23 mmol/L Fyotvf36-95JlvCdjuzh [place] [facility] HospitalComment on above:Performed By: #### RENA BREAUX, , 2776-04 ####[facility] ([id number])[address], [address], [place] [address]Hvxdszoqng [Mass/Vol]0.88 mg/dLNormal0.40-1.00 [facility] HospitalComment on above:Result Comment: METHOD TRACEABLE TO IDMS STANDARDPerformed By: #### RENA BREAUX, , 2776-04 ####[facility] ([id number])[address], [address], [place] [address]WFI/1.73 sq M.predicted among non-blacks MDRD (S/P/Bld) [Vol rate/Area]75 mL/min/{1.73_m2} Normal>59ProKindred Hospital LimaComment on above:Result Comment: Reported eGFR is based on theCKD-EPI 2020 equation that doesnot use a race coefficient. Performed By: #### RENA BREAUX, , 2776-04 ####[facility] ([id number])[address], [address], [place] [address]Hbxrfkg [Mass/Vol]108 mg/dL Clac46-34PdtGwahtc [place] HospitalComment on above:Performed By: #### RENA BREAUX, , 2776-04 ####[facility] ([id number])[address], [address], [place] [address]Pcfkhccfv [Moles/Vol]3.4 mmol/LLow3.5-5.0Pro[facility] Hospitalca [place] HospitalComment on above:Performed By: #### RENA BREAUX, , 1 ####[facility] ([id number])[address], [address], [place] [address]Rczpdst [Mass/Vol]5.5 g/dLLow6.0-8.0Pro[facility] Hospitalca [place] HospitalComment on above:Performed By: #### RENA BREAUX, , 2776-04 ####[facility] ([id number])[address], [address], [place] [address]Rhbaun [Moles/Vol]138 mmol/SDdvjyf280-268PfeNqcmpf [place] HospitalComment on above:Performed By: #### RENA BREAUX, , 2776-04 ####[facility] ([id number])[address], [address], [place] [address]Utrg nitrogen [Mass/Vol]9 mg/dLNormal5-27 ProMmoody hospitala [place] HospitalComment on above:Performed By: #### RENA BREAUX, , 2776-04 ####[facility] ([id number])[address], [address], [place] [address]EVWCOZBKSki 55-92-4119Ntjmdbqlw [Mass/Vol]1.8 mg/dLNormal 1.8-2.6[facility] HospitalComment on above:Performed By: #### RENA BREAUX, , 2776-04 ####[facility] ([id number])[address], [address], [place] [address]Wuzaenfyi Ionized ISE (Bld) [Moles/Vol]on 06-19-2024 Magnesium [Moles/Vol]0.62 mmol/LNormal0.45-0.74[facility] HospitalComment on above:Result Comment: NEW REFERENCE RANGEPerformed By: #### 90361-0 ####[facility] ([id number])[address], [address] [place] [address]LKQAQGIRGVyu 16-37-2248Njqldhoti [Mass/Vol]4.2 mg/dLNormal2.4-4.9[facility] HospitalComment on above:Performed By: #### 2823-3, 2777-1 ####[facility] ([id number])[address], [address] [place] [address] Phosphate [Mass/Vol]2.1 mg/dLLow2.4-4.9[facility] HospitalComment on above:Performed By: #### CBCA, CMP, , 2776-04 ####[facility] ([id number])[address], [address] [place] [address] 18691PRNJTCWBOnu 06-19-2024 Potassium [Moles/Vol]4.1 mmol/LNormal3.5-5.0[facility] HospitalComment on above:Performed By: #### 2823-3, 2777-1 ####[facility] ([id number])[address], [address] [place] [address]WY CHEST 1 VWon 06-19-2024 XR CHEST 1 VWNormalProMedica Lynn HospitalCB AND AUTO DIFFon 06-18-2024 ABSOLUTE BASOPHIL0.1 X10E9/LNormal0.0-0.2[facility] HospitalComment on above:Performed By: #### CBCA, CMP, LIVR, , 2776-04 ####[facility] ([id number])[address], [address] [place] [address]UEGMCJBE NEUTROPHIL3.6 X10E9/LNormal1.5-6.6[facility] HospitalComment on above: Performed By: #### CBCA, CMP, LIVR, , 2776-04 ####[facility] ([id number])[address], [address], [place] [address]Nkiqhfmuo/100 WBC (Bld)1.5 %NormalProMedica Lynn HospitalComment on above:Performed By: #### CBCA, CMP, LIVR, , 2776-04 ####[facility] ([id number])[address], [address], [place] [address]Zaelinbtqwd (Bld) [#/Vol] 0.2 10*3/uLNormal0.0-0.4[facility] HospitalComment on above:Performed By: #### CBCA, CMP, LIVR, , 2776-04 ####[facility] ([id number])[address], [address], [place] [address]Uhltbxwyzrp/100 WBC (Bld) 3.9 %NormalProMedica Lynn HospitalComment on above:Performed By: #### CBCA, CMP, LIVR, , 2776-04 ####[facility] ([id number])[address], [address], [place] [address]Jozankvjdoz distribution width (RBC) [Ratio] 17.2 %High11.5-15.0[facility] HospitalComment on above:Performed By: #### CBCA, CMP, LIVR, , 2776-04 ####[facility] ([id number])[address], [address], [place] [address]Xegfnbnxjr (Bld) [Volume fraction]24.3 %Ofq22-42RarCgpxfs [facility] HospitalComment on above:Performed By: #### CBCA, CMP, LIVR, , 2776-04 ####[facility] ([id number])[address], [address], [place] [address]Aqzchumtxt (Bld) [Mass/Vol] 8.1 g/dLLow11.7-15.5PMercy Health [facility] HospitalComment on above:Performed By: #### CBCA, CMP, LIVR, , 2776-04 ####[facility] ([id number])[address], [address], [place] [address]Vuzbidkblic (Bld) [#/Vol] 1.2 10*3/uLNormal1.0-3.5PMercy Health [facility] HospitalComment on above:Performed By: #### CBCA, CMP, LIVR, , 2776-04 ####[facility] ([id number])[address], [address], [place] [address]Ysmlvqkdbgo/100 WBC (Bld) 20.1 %NormalProMedica [place]idge HospitalComment on above:Performed By: #### CBCA, CMP, LIVR, , 2776-04 ####[facility] ([id number])[address], [address], [place] [address]OWA (RBC) [Entitic mass]32.1 lvIlzfkm28-77 [facility] [place] HospitalComment on above:Performed By: #### CBCA, CMP, LIVR, , 2776-04 ####[facility] ([id number])[address], [address], [place] [address]MPMS (RBC) [Mass/Vol]33.2 g/fAClqlty91-49XrjObhlku [facility] HospitalComment on above:Performed By: #### CBCA, CMP, LIVR, , 2776-04 ####[facility] ([id number])[address], [address], [place] [address]YFU (RBC) [Entitic vol]97 eMMoeczq09-064YkxSudefw [facility] HospitalComment on above:Performed By: #### CBCA, CMP, LIVR, , 2776-04 ####[facility] ([id number])[address], [address] [place] [address]Whidnoouw (Bld) [#/Vol]0.8 10*3/uLNormal0-0.9[facility] Comment on above:Performed By: #### CBCA, CMP, LIVR, , 2776-04 ####[facility] ([id number])[address], [address], [place] [address] Monocytes/100 WBC (Bld)13.1 %NormalProGreene Memorial Hospitalca [place] HospitalComment on above: Performed By: #### CBCA, CMP, LIVR, , 2776-04 ####[facility] ([id number])[address], [address], [place] [address]Vmixvnzezre/100 WBC (Bld)61.4 %NormalProGreene Memorial Hospitalca [place] HospitalComment on above:Performed By: #### CBCA, CMP, LIVR, , 2776-04 ####[facility] ([id number])[address], [address], [place] [address]Eeqjprle mean volume (Bld) [Entitic vol]6.6 fLLow7-12[facility] HospitalComment on above:Performed By: #### CBCA, CMP, LIVR, , 2776-04 ####[facility] ([id number])[address], [address], [place] [address]Aesdsvxqq (Bld) [#/Vol]77 10*3/zRGvl409-355BsbJamcgb [facility] HospitalComment on above:Performed By: #### CBCA, CMP, LIVR, , 2776-04 ####[facility] ([id number])[address], [address], [place] [address]ZUG COUNT2.52 X10E12/LLow 3.80-5.20[facility] [place] HospitalComment on above:Performed By: #### CBCA, CMP, LIVR, , 2776-04 ####[facility] ([id number])[address], [address], [place] [address]GZR (Bld) [#/Vol]5.8 10*3/uLNormal4.0-11.0 [facility] [place] HospitalComment on above:Performed By: #### CBCA, CMP, LIVR, , 2776-04 ####[facility] ([id number])[address], [address], [place] [address]FBUCKRCVUKFSJ METABOLIC PANELon 04-58-9094Hiapuxy [Mass/Vol]2.8 g/dLLow3.2-5.3[facility] [place] HospitalComment on above:Performed By: #### CBCA, CMP, LIVR, , 2776-04 ####[facility] ([id number])[address], [address], [place] [address]KAF [Catalytic activity/Vol]78 U/PDtotfl15-767ZjwInbwej [place] HospitalComment on above: Performed By: #### CBCA, CMP, LIVR, , 2776-04 ####[facility] ([id number])[address], [address], [place] [address]NNS [Catalytic activity/Vol]3 U/LNormal0-31[facility] HospitalComment on above:Performed By: #### CBCA, CMP, LIVR, , 2776-04 ####[facility] ([id number])[address], [address], [place] [address]Ctnef gap [Moles/Vol]7 mmol/LNormal5-15[facility] HospitalComment on above:Performed By: #### CBCA, CMP, LIVR, , 2776-04 ####[facility] ([id number])[address], [address], [place] [address]ZER [Catalytic activity/Vol]15 U/LNormal0-41[facility] HospitalComment on above:Performed By: #### CBCA, CMP, LIVR, , 2776-04 ####[facility] ([id number])[address], [address], [place] [address]Fwqlzwxmj [Mass/Vol]1.2 mg/dLNormal0.3-1.2[facility] HospitalComment on above:Performed By: #### CBCA, CMP, LIVR, , 2776-04 ####[facility] ([id number])[address], [address], [place] [address]Didnvud [Mass/Vol]8.6 mg/dL Normal8.5-10.5[facility] HospitalComment on above:Performed By: #### CBCA, CMP, LIVR, , 2776-04 ####[facility] ([id number])[address], [address], [place] [address]Ddaqtczy [Moles/Vol]106 mmol/TCrndic17-674 [facility] HospitalComment on above:Performed By: #### CBCA, CMP, LIVR, , 2776-04 ####[facility] ([id number])[address], [address], [place] [address]YQ4 [Moles/Vol]26 mmol/VPagpyk83-42KfeQiwglv [place] HospitalComment on above:Performed By: #### CBCA, CMP, LIVR, , 2776-04 ####[facility] ([id number])[address], [address], [place] [address]Wnughemznr [Mass/Vol]0.72 mg/dLNormal0.40-1.00[facility] Comment on above:Result Comment: METHOD TRACEABLE TO IDMS STANDARDPerformed By: #### NAMITA, CMP, LIVR, , 2776-04 ####[facility] ([id number])[address] [address], [place] [address]kYHC (CKD-EPI) NON-RACE DEPENDENT>90Normal>59[facility] HospitalComment on above:Result Comment: Reported eGFR is based on theCKD-EPI 2020 equation that doesnot use a race coefficient.Performed By: #### RENA BREAUX, LIVR, , 2776-04 ####[facility] ([id number])[address] [address] [address] Glucose [Mass/Vol]95 mg/uSVedtzj63-23FciRaxhfz [place] HospitalComment on above: Performed By: #### RENA BREAUX, LIVR, , 2776-04 ####[facility] ([id number])[address] [address], [place] [address]Pjpmlhaco [Moles/Vol] 3.9 mmol/LNormal3.5-5.0ProKindred Hospital LimaComment on above:Performed By: #### CBCChristiano, CMP, LIVR, , 2776-04 ####[facility] ([id number])[address] [address], [place] [address]Nqqbaoc [Mass/Vol]5.5 g/dL Low6.0-8.0ProKindred Hospital LimaComment on above:Performed By: #### CBCA, CMP, LIVR, , 2776-04 ####[facility] ([id number])[address] [address], [place] [address]Lnubtq [Moles/Vol]139 mmol/WIrhmpn665-019 [facility] HospitalComment on above:Performed By: #### CBCA, CMP, LIVR, , 2776-04 ####[facility] ([id number])[address], [address], [place] [address]Lhnz nitrogen [Mass/Vol]8 mg/dLNormal5-27[facility] HospitalComment on above:Performed By: #### CBCA, CMP, LIVR, , 2776-04 ####[facility] ([id number])[address], [address], [place] [address]RDLKH PANELon 79-58-6896Ltsfqqsqr.direct [Mass/Vol]0.7 mg/dL High0.0-0.4[facility] HospitalComment on above:Performed By: #### CBCChristiano, CMP, LIVR, , 2776-04 ####[facility] ([id number])[address], [address] [place] [address]BUOHHUSIVrj 38-80-2011Lkbyjxqxb [Mass/Vol] 1.9 mg/dLNormal1.8-2.6ProGre[facility] Hospitalca Coolidge HospitalComment on above:Performed By: #### CBCA, CMP, LIVR, , 2776-04 ####[facility] ([id number])[address], [address] [place] [address]IAERNPILSLgk 06-18-2024 Phosphate [Mass/Vol]3.1 mg/dLNormal2.4-4.9Pro[facility] Hospitalca [facility] HospitalComment on above:Performed By: #### CBCA, CMP, LIVR, , 2776-04 ####[facility] ([id number])[address], [address], [place] [address]IXNXCBO AND INR on 75-75-0112QTQ Coag (PPP) [Relative time]1.1 {INR}Normal0.9-1.2PC[facility]ucl[facility] HospitalComment on above:Performed By: #### HUDSON, 39571-2 ####[facility] ([id number])[address], [id number], [place] [address]OQ Coag (PPP) [Time]13.0 sNormal9.8-13.2PMercy Health [facility] HospitalComment on above: Performed By: #### HUDSON, 44249-5 ####[facility] ([id number])[address], [id number], [place] [address]AA CHEST 1 VWon 60-79-0332JE CHEST 1 VWNormalProKindred Hospital LimaaPTT Coag (PPP) [Time]on 06-18-2024 aPTT Coag (Bld) [Time]31 iDpppoc42-90EccKxcukq [place] HospitalComment on above: Performed By: #### HUDSON, 32897-1 ####[facility] ([id number])[address], [id number], [place] [address]SGW AND AUTO DIFFon 04-84-3910MYDSOPVT BASOPHIL0.1 X10E9/LNormal0.0-0.2[facility] Comment on above:Performed By: #### CBCA, CMP, LIVR, , 2776-1 ####[facility] ([id number])[address], [address], [place] [address] ABSOLUTE NEUTROPHIL3.2 X10E9/LNormal1.5-6.6[facility] HospitalComment on above:Performed By: #### CBCA, CMP, LIVR, , 1 ####[facility] ([id number])[address], [address], [place] [address]Wrjtvmulz/100 WBC (Bld)1.4 %NormalProDoctors Hospital HospitalComment on above:Performed By: #### CBCA, CMP, LIVR, , 2776-04 ####[facility] ([id number])[address], [address], [place] [address]Kqmjvybuetl (Bld) [#/Vol] 0.1 10*3/uLNormal0.0-0.4Pro[facility] HospitalComment on above:Performed By: #### CBCA, CMP, LIVR, , 2776-04 ####[facility] ([id number])[address], [address], [place] [address]Yfmqfqttnzu/100 WBC (Bld) 2.4 %NormalProDoctors Hospital HospitalComment on above:Performed By: #### CBCA, CMP, LIVR, , 2776-04 ####[facility] ([id number])[address], [address] [place] [address]Bxmhyrweezo distribution width (RBC) [Ratio] 17.5 %High11.5-15.0[facility] HospitalComment on above:Performed By: #### CBCA, CMP, LIVR, , 2776-04 ####[facility] ([id number])[address] [address] [place] [address]Qmzqhbjdvo (Bld) [Volume fraction]24.5 %Ghq52-23IqdKjwmsf [place] HospitalComment on above:Performed By: #### CBCA, CMP, LIVR, , 2776-04 ####[facility] ([id number])[address] [address] [place] [address]Krbhqywehy (Bld) [Mass/Vol] 8.3 g/dLLow11.7-15.5PChrist[facility] [address] Hospitalica [facility] HospitalComment on above:Performed By: #### CBCA, CMP, LIVR, , 2776-04 ####[facility] ([id number])[address], [address] [place] [address]Aiagbcbituw (Bld) [#/Vol] 0.9 10*3/uLLow1.0-3.5[facility] HospitalComment on above:Performed By: #### CBCA, CMP, LIVR, , 2776-04 ####[facility] ([id number])[address], [address], [place] [address]Szvgfiwgabl/100 WBC (Bld) 19.3 %NormalProDoctors Hospital HospitalComment on above:Performed By: #### CBCA, CMP, LIVR, , 2776-04 ####[facility] ([id number])[address], [address] [place] [address]ZFZ (RBC) [Entitic mass]32.3 wnKfjvga73-91 [facility] Coolidge HospitalComment on above:Performed By: #### CBCA, CMP, LIVR, , 2776-04 ####[facility] ([id number])[address], [address] [place] [address]YBBG (RBC) [Mass/Vol]33.8 g/wJXstlln66-93QmhRhmttd [place] HospitalComment on above:Performed By: #### CBCA, CMP, LIVR, , 2776-04 ####[facility] ([id number])[address], [address] [place] [address]69EQC (RBC) [Entitic vol]96 kXDmlonu71-105TncLieitt [place] HospitalComment on above:Performed By: #### CBCA, CMP, LIVR, , 2776-04 ####[facility] ([id number])[address], [address] [place] [address]Oferrenux (Bld) [#/Vol]0.5 10*3/uLNormal0-0.9[facility] Comment on above:Performed By: #### CBCA, CMP, LIVR, , 2776-04 ####[facility] ([id number])[address], [address], [place] [address] Monocytes/100 WBC (Bld)10.6 %NormalProMedica Lynn HospitalComment on above: Performed By: #### CBCA, CMP, LIVR, , 2776-04 ####[facility] ([id number])[address], [address], [place] [address]Gvocoscaucq/100 WBC (Bld)66.3 %NormalProMedica Lynn HospitalComment on above:Performed By: #### CBCA, CMP, LIVR, , 2776-04 ####[facility] ([id number])[address], [address], [place] [address]Sshkvbei mean volume (Bld) [Entitic vol]6.8 fLLow7-12[facility] HospitalComment on above:Performed By: #### CBCA, CMP, LIVR, , 2776-04 ####[facility] ([id number])[address], [address] [place] [address]Wqxokxzqn (Bld) [#/Vol]87 10*3/wMYuu348-821DibTcrmsv Lynn HospitalComment on above:Performed By: #### CBCA, CMP, LIVR, , 2776-04 ####[facility] ([id number])[address], [address] [place] [address] 85[address]FMI COUNT2.56 X10E12/LLow 3.80-5.20[facility] Lynn HospitalComment on above:Performed By: #### CBCA, CMP, LIVR, , 2776-04 ####[facility] ([id number])[address], [address], [place] [address]QAK (Bld) [#/Vol]4.8 10*3/uLNormal4.0-11.0 [facility] HospitalComment on above:Performed By: #### CBCA, CMP, LIVR, , 2776-04 ####[facility] ([id number])[address], [address], [place] [address]MPXEVZEZWBNCA METABOLIC PANELon 30-40-5111Yiktbjm [Mass/Vol]2.8 g/dLLow3.2-5.3[facility] Lynn HospitalComment on above:Performed By: #### CBCA, CMP, LIVR, , 2776-04 ####[facility] ([id number])[address], [address], [place] [address]QXM [Catalytic activity/Vol]76 U/PNbafjs80-126VzrMbxjxx Lynn HospitalComment on above: Performed By: #### CBCA, CMP, LIVR, , 2776-04 ####[facility] ([id number])[address], [address], [place] [address]AJD [Catalytic activity/Vol]4 U/LNormal0-31[facility] HospitalComment on above:Performed By: #### CBCA, CMP, LIVR, , 2776-04 ####[facility] ([id number])[address], [address], [place] [address]Dqoia gap [Moles/Vol]9 mmol/LNormal5-15[facility] HospitalComment on above:Performed By: #### CBCA, CMP, LIVR, , 2776-04 ####[facility] ([id number])[address], [address], [place] [address]Vapvabbdt By: #### ELEC, ####[facility] ([id number])[address], [address], [place] [address]TAB [Catalytic activity/Vol]15 U/LNormal0-41[facility] HospitalComment on above:Performed By: #### CBCA, CMP, LIVR, , 2776-04 ####[facility] ([id number])[address], [address], [place] [address]Qubffwpyi [Mass/Vol]1.5 mg/dLHigh0.3-1.2PMer[facility] HospitalComment on above:Performed By: #### CBCA, CMP, LIVR, , 2776-04 ####[facility] ([id number])[address], [address], [place] [address]Psssukv [Mass/Vol]8.5 mg/dLNormal8.5-10.5PMercy Health [facility]erm[facility] Hospital HospitalComment on above: Performed By: #### CBCA, CMP, LIVR, , 2776-04 ####[facility] ([id number])[address] [address], [place] [address]FI4 [Moles/Vol]26 mmol/OYlapez68-04ZgaOiavnc [place] HospitalComment on above:Performed By: #### CBCA, CMP, LIVR, , 2776-04 ####[facility] ([id number])[address] [address], [place] [address]Kagcdbneva [Mass/Vol]0.90 mg/dLNormal0.40-1.00[facility] HospitalComment on above:Result Comment: METHOD TRACEABLE TO IDMS STANDARDPerformed By: #### CBCA, CMP, LIVR, , 2776-04 ####[facility] ([id number])[address] [address], [place] [address]XVE/1.73 sq M.predicted among non-blacks MDRD (S/P/Bld) [Vol rate/Area]73 mL/min/{1.73_m2}Normal>59[facility]idge HospitalComment on above: Result Comment: Reported eGFR is based on theCKD-EPI 2020 equation that doesnot use a race coefficient.Performed By: #### NAMITA CMP, LIVR, , 2776-04 ####[facility] ([id number])[address], [address], [place] [address]Vsfekys [Mass/Vol]79 mg/sODhzkck02-01UcbWackbv [place] HospitalComment on above:Performed By: #### NAMITA, CMP, LIVR, , 2776-04 ####[facility] ([id number])[address], [address], [place] [address]Zbmspecsz [Moles/Vol]4.0 mmol/LNormal3.5-5.0[facility] HospitalComment on above: Performed By: #### NAMITA CMP, LIVR, , 2776-04 ####[facility] ([id number])[address], [address], [place] [address]Mirnmwp [Mass/Vol]5.0 g/dLLow6.0-8.0[facility] HospitalComment on above:Performed By: #### NAMITA CMP, LIVR, , 2776-04 ####[facility] ([id number])[address], [address], [place] [address]Dexi nitrogen [Mass/Vol]7 mg/dLNormal5-27 [facility] HospitalComment on above:Performed By: #### CBCChristiano, CMP, LIVR, , 2776-04 ####[facility] ([id number])[address], [address], [place] [address]Uwmxeinm [Moles/Vol]105 mmol/BRjamgr55-936AdjMvetbf [place] HospitalComment on above:Performed By: #### CBCA, CMP, LIVR, , 2776-04 ####[facility] ([id number])[address], [address], [place] [address]Dkvvnjrzh By: #### ELEC, ####[facility] ([id number])[address], [id number], [place] [address]Xxrteu [Moles/Vol]140 mmol/ZDipgyl412-599XtfKiwzyz Lynn HospitalComment on above:Performed By: #### CBCA, CMP, LIVR, , 2776-04 ####[facility] ([id number])[address], [address], [place] [address]Cwyggnxbr By: #### ELEC, ####[facility] ([id number])[address], [address], [place] [address]Rrkrksa.ionized (Bld) [Mass/Vol]on 41-91-4878ICPUIDG CALCIUM 4.9 mg/dLNormal4.5-5.3[facility] HospitalComment on above:Performed By: #### 87765-7, 11581-9 ####[facility] ([id number])[address], [address], [place] [address]AMOXYXYCJHMDud 71-90-2323Tpsye gap [Moles/Vol]10 mmol/LNormal5-15[facility] HospitalComment on above: Performed By: #### ELEC, , 2776-04 ####[facility] ([id number])[address], [address], [place] [address]Fjggwkwa [Moles/Vol]106 mmol/KAgrxjf66-695XnvHsdsga Lynn HospitalComment on above:Performed By: #### ELEC, , 2776-04 ####[facility] ([id number])[address], [address], [place] [address]RG7 [Moles/Vol]25 mmol/THksstk06-23UwgRddyxf Lynn HospitalComment on above:Performed By: #### ELEC, , 2777-1 ####[facility] ([id number])[address], [address], [place] [address]Bwtdhcfpl [Moles/Vol]4.1 mmol/LNormal3.5-5.0[facility] Comment on above:Performed By: #### ELEC, , 2776- ####[facility] ([id number])[address], [address], [place] [address]Tsyrhqxqg By: #### ELEC, ####[facility] ([id number])[address], [place], [place] [address]Euyebx [Moles/Vol]141 mmol/GKxhmtg488-655MceUkkejk Lynn HospitalComment on above:Performed By: #### ELEC, , 2776-04 ####[facility] ([id number])[address], [address], [place] [address]Xxvuk gap [Moles/Vol]10 mmol/LNormal5-15[facility] HospitalComment on above:Performed By: #### ELEC, ####[facility] ([id number])[address], [id number], [place] [address]VI7 [Moles/Vol]25 mmol/L Ubdsxj12-01NtzAqsgwb Lynn HospitalComment on above:Performed By: #### ELEC, ####[facility] ([id number])[address], [address], [place] [address]Qhogdkmbp [Moles/Vol]4.2 mmol/LNormal3.5-5.0[facility] HospitalComment on above:Performed By: #### ELEC, ####[facility] ([id number])[address], ITRDK905ZFGKMB, [place] [address]Qssfrwpj [Moles/Vol]104 mmol/NWukzqc58-342XnjEwfsev Lynn HospitalComment on above: Performed By: #### ELEC, ####[facility] ([id number])[address], [place]EXV121[place]HI, [place] [address]TY5 [Moles/Vol]27 mmol/L Aqpijl03-51RxvKxoqrv Lynn HospitalComment on above:Performed By: #### ELEC, ####[facility] ([id number])[address], [address], [place] [address]Dobvd gap [Moles/Vol]10 mmol/LNormal5-15[facility] HospitalComment on above:Performed By: #### ELEC, ####[facility] ([id number])[address], PMJSV269HHYCOS, [place] [address]Vnxkwgpt [Moles/Vol]105 mmol/AAvgvgy72-796IjuEfithn Lynn HospitalComment on above: Performed By: #### ELEC, ####[facility] ([id number])[address], GHERJ200[place]XJLCU, [place] [address]GB9 [Moles/Vol]25 mmol/L Thndlf34-68JswRunmwo Lynn HospitalComment on above:Performed By: #### ELEC, ####[facility] ([id number])[address], [address], [place] [address]Oiceccorl [Moles/Vol]3.9 mmol/LNormal3.5-5.0[facility] HospitalComment on above:Performed By: #### ELEC, ####[facility] ([id number])[address], NSMVL365GPGNLX, [place] [address]Brbovo [Moles/Vol]140 mmol/GBufqmt397-295TggUnfgbj Lynn HospitalComment on above: Performed By: #### ELEC, ####[facility] ([id number])[address], DCEBG042FBUWSM, [place] [address]WIJIN PANELon 06-17-2024 Bilirubin.direct [Mass/Vol]0.7 mg/dLHigh0.0-0.4[facility] HospitalComment on above:Performed By: #### CBCA, CMP, LIVR, , 2771 ####[facility] ([id number])[address], [address] [place], [place] [address]ORRUVGCUBiw 26-37-4781Uwrynpouf [Mass/Vol]2.3 mg/dLNormal1.8-2.6[facility] Comment on above:Performed By: #### ELEC, , 2776-04 ####[facility] ([id number])[address], [address], [place] [address]Pebkdfbnc [Mass/Vol]2.0 mg/dLNormal1.8-2.6[facility] HospitalComment on above: Performed By: #### CBCA, CMP, LIVR, , 1 ####[facility] ([id number])[address], [address], [place] [address]Lythharqy By: #### ELEC, ####[facility] ([id number])[address], [address], [place] [address]Ntdprrsln [Mass/Vol]1.8 mg/dLNormal1.8-2.6[facility] HospitalComment on above:Performed By: #### ELEC, ####[facility] ([id number])[address], SWLLO806BUMSFP, [place] [address]Jtwobpahx [Mass/Vol]2.1 mg/dLNormal1.8-2.6[facility] HospitalComment on above: Performed By: #### ELEC, ####[facility] ([id number])[address], SADSH119SJITXD, [place] [address]Jxfswrlbs By: #### CBCA, CMP, LIVR, , 2776-04 ####[facility] ([id number])[address], [address], [place] [address]Xtsogmhmm Ionized ISE (Bld) [Moles/Vol]on 72-66-5131Pieyynowd [Moles/Vol]0.63 mmol/LNormal0.45-0.74[facility] HospitalComment on above:Result Comment: NEW REFERENCE RANGEPerformed By: #### 66868-9, 31416-1 ####[facility] ([id number])[address] [address], [place] [address]AMFMXYKWGJai 33-70-5342Tuhbbbhye [Mass/Vol]2.1 mg/dLLow 2.4-4.9[facility] HospitalComment on above:Performed By: #### ELEC, , 2776-04 ####[facility] ([id number])[address] [address] [place] [address]Nkbtontxe [Mass/Vol]2.8 mg/dLNormal2.4-4.9[facility] HospitalComment on above:Performed By: #### CBCA, CMP, LIVR, , 2776-04 ####[facility] ([id number])[address] [address] [place] [address]HTYRWRZ AND INRon 87-08-8708JBI Coag (PPP) [Relative time]1.2 {INR}Normal 0.9-1.2[facility] HospitalComment on above:Performed By: #### PINR, 69779- 9 ####[facility] ([id number])[address], [address] [address]GZ Coag (PPP) [Time]13.3 sHigh9.8-13.2[facility] HospitalComment on above:Performed By: #### HUDSON, 00440-5 ####[facility] ([id number])[address] [address]DJX Coag (PPP) [Relative time]1.2 {INR}Normal0.9-1.2[facility] HospitalComment on above:Performed By: #### HUDSON, 12453-3 ####[facility] ([id number])[address] [address]YR Coag (PPP) [Time]13.9 sHigh9.8-13.2 Pro[facility]Ohio[facility] HospitalComment on above:Performed By: #### HUDSON, 76679-5 ####[facility] ([id number])[address] [address]Rercmrzxiu [Mass/Vol]on 63-83-6389WPDVVQALDN57.8 ug/mLNormal5.0-40.0 [facility] HospitalComment on above:Result Comment: Peak 30-40 ug/mLTrough 5-20 ug/ml Performed By: #### 92664-4 ####[facility] ([id number])[address], [facility] [address], [place] [address]YT ABD NG TUBE PLACEMENT 1 VIEWon 49-37-8878VY ABD NG TUBE PLACEMENT 1 VIEWNormalProMedica Van Wert County HospitalXR CHEST 1 VWon 70-16-3076TY CHEST 1 VWNormalProMedica Van Wert County HospitalaPTT Coag (PPP) [Time]on 07-23-1134hYCX Coag (Bld) [Time]31 gLjolbx72-82UyfTpusyf Lynn HospitalComment on above: Performed By: #### HUDSON, 53351-2 ####[facility] ([id number])[address], JZNVR561QKVRZK, [place] [address]tDLZ Coag (Bld) [Time]33 s Gjjxip57-91KzfVoyfgr [facility] HospitalComment on above:Performed By: #### HUDSON, 66211-8 ####[facility] ([id number])[address], [address], [place] [address]CYBMRLKH BLOOD GASon 96-74-8668CYFAK'S TESTNormalProMedica Coolidge HospitalComment on above:Performed By: #### ABG ####[facility] ([id number])[address] [place], [place] [address]Vvet excess Calc (Bld) [Moles/Vol]0.0 mmol/LNormal0.0-2.0[facility] HospitalComment on above: Performed By: #### ABG ####[facility] ([id number])[address] [place], [place] [address]Jgds vupophsajev59.6 [degF]Zwwacn16.0ProGreene Memorial Hospitalca [place] HospitalComment on above:Performed By: #### ABG ####[facility] ([id number])[address] [place] [place], [place] [address]CGH6 (Bld) [Moles/Vol]23.5 mmol/L Hjcewz23-54HbpUgwuie Lynn HospitalComment on above:Performed By: #### ABG ####[facility] ([id number])[address] [place] [address] INSP. O2 CONC.40 %NormalProMedica Coolidge HospitalComment on above:Performed By: #### ABG ####[facility] ([id number])[address] [place], [place] [address]Wwwfrp (Bld) [Partial pressure]66 mm[Hg]Wqx90-774ZhgPdxbgq [facility] Comment on above:Performed By: #### ABG ####[facility] ([id number])[address] [place], [place] [address]Cjiylj saturation in Blood94.0 % Normal>90ProKindred Hospital LimaComment on above:Performed By: #### ABG ####[facility] ([id number])[address] [place] [address] OXYGEN SOURCEVentNoalLima City HospitalComment on above:Performed By: #### ABG ####[facility] ([id number])[address] [place], [place] [address]QVJ461.6 BRKHPfq02-83HmwAxfeeoKindred Hospital LimaComment on above:Performed By: #### ABG ####[facility] ([id number])[address] [place], [place] [address]aU (Bld)7.440 [pH]Normal7.350-7.450ProKindred Hospital LimaComment on above:Performed By: #### ABG ####[facility] ([id number])[address] [place], [place] [address]OMKDBP SITEALineNoalLima City HospitalComment on above:Performed By: #### ABG ####[facility] ([id number])[address] [place], [place] [address]OSTQSR TYPEARTERIALNormalLima City Hospital Comment on above:Performed By: #### ABG ####[facility] ([id number])[address] [place], [place] [address]HEC AND AUTO DIFFon 06-16-2024 ABSOLUTE BASOPHIL0.1 X10E9/LNormal0.0-0.2[facility] County HospitalComment on above:Performed By: #### CBCA, CMP, LIVR, 92965-4, 2777-1 ####[facility] ([id number])[address], [address], [place] [address]JLYENGPQ NEUTROPHIL2.4 X10E9/LNormal1.5-6.6[facility] HospitalComment on above: Performed By: #### CBCA, CMP, LIVR, , 2776-04 ####[facility] ([id number])[address], [address], [place] [address]Bmmetndeh/100 WBC (Bld)1.2 %NormalProMedica Lynn HospitalComment on above:Performed By: #### CBCA, CMP, LIVR, , 2776-04 ####[facility] ([id number])[address] [address] [place] [address]Zabijleupib (Bld) [#/Vol] 0.1 10*3/uLNormal0.0-0.4ProGreene Memorial Hospitalca [facility] HospitalComment on above:Performed By: #### CBCA, CMP, LIVR, , 2776-04 ####[facility] ([id number])[address] [address], [place] [address]Xnfftyhzolt/100 WBC (Bld) 2.7 %NormalProMedica Coolidge HospitalComment on above:Performed By: #### CBCA, CMP, LIVR, , 2776-04 ####[facility] ([id number])[address] [address], [place] [address]Wzipslbzgpj distribution width (RBC) [Ratio] 17.3 %High11.5-15.0[facility] HospitalComment on above:Performed By: #### CBCA, CMP, LIVR, , 2776-04 ####[facility] ([id number])[address] [address], [place] [address]Efyxsekjmm (Bld) [Volume fraction]23.9 %Tbq28-63HzmYiylnm Lynn HospitalComment on above:Performed By: #### CBCA, CMP, LIVR, , 2776-04 ####[facility] ([id number])[address], [address], [place] [address]Erlaeiycks (Bld) [Mass/Vol] 8.1 g/dLLow11.7-15.5ProMedOhio[facility] HospitalComment on above:Performed By: #### CBCA, CMP, LIVR, , 2776-04 ####[facility] ([id number])[address], [address], [place] [address]Bjevvpxadin (Bld) [#/Vol] 1.0 10*3/uLNormal1.0-3.5ProMedOhio[facility] HospitalComment on above:Performed By: #### CBCA, CMP, LIVR, , 2776-04 ####[facility] ([id number])[address], [address], [place] [address]Hozjaykrvbh/100 WBC (Bld) 23.8 %NormalProDoctors Hospital HospitalComment on above:Performed By: #### CBCA, CMP, LIVR, , 2776-04 ####[facility] ([id number])[address], [address], [place] [address]RHB (RBC) [Entitic mass]32.0 xmXwsbjg43-21 [facility] HospitalComment on above:Performed By: #### CBCA, CMP, LIVR, , 2776-04 ####[facility] ([id number])[address], [address], [place] [address]YHSW (RBC) [Mass/Vol]33.9 g/aEGdvylr91-00AbqZdlhoa [facility] HospitalComment on above:Performed By: #### CBCA, CMP, LIVR, , 2777-1 ####[facility] ([id number])[address], [address], [place] [address]XHC (RBC) [Entitic vol]94 oNPezwld28-711AevMwprvg [facility] HospitalComment on above:Performed By: #### CBCA, CMP, LIVR, , 2776-04 ####[facility] ([id number])[address], [address], [place] [address]Kulyziynb (Bld) [#/Vol]0.6 10*3/uLNormal0-0.9[facility] Comment on above:Performed By: #### CBCA, CMP, LIVR, , 2776-04 ####[facility] ([id number])[address], [address] [place] [address] Monocytes/100 WBC (Bld)13.8 %NormalProMedica Coolidge HospitalComment on above: Performed By: #### CBCA, CMP, LIVR, , 2776-04 ####[facility] ([id number])[address], [address], [place] [address]Lfuhglildph/100 WBC (Bld)58.5 %NormalProGreene Memorial Hospitalca [facility] HospitalComment on above:Performed By: #### CBCA, CMP, LIVR, , 2776-04 ####[facility] ([id number])[address], [address] [place] [address]Xvckgkky mean volume (Bld) [Entitic vol]7.3 fLNormal7-12[facility] HospitalComment on above:Performed By: #### CBCA, CMP, LIVR, , 2776-04 ####[facility] ([id number])[address], [address], [place] [address]Jxqwmccsv (Bld) [#/Vol]99 10*3/zVBnk592-772KydDqgvny Lynn HospitalComment on above:Performed By: #### CBCA, CMP, LIVR, , 2776-04 ####[facility] ([id number])[address], [address] [place] [address]SYH COUNT2.53 X10E12/LLow 3.80-5.20[facility] HospitalComment on above:Performed By: #### CBCA, CMP, LIVR, , 2776-04 ####[facility] ([id number])[address], [address] [place] [address]YFU (Bld) [#/Vol]4.2 10*3/uLNormal4.0-11.0 [facility] HospitalComment on above:Performed By: #### CBCA, CMP, LIVR, , 2776-04 ####[facility] ([id number])[address], [address] [place] [address]MLLNXUEZIQEMW METABOLIC PANELon 47-01-9095QFE [Catalytic activity/Vol]74 U/AQsxhyc50-354KucEthlpa [facility] HospitalComment on above:Performed By: #### CBCA, CMP, LIVR, , 2776-04 ####[facility] ([id number])[address], [address], [place] [address]Piuez gap [Moles/Vol]11 mmol/LNormal5-15[facility] HospitalComment on above: Performed By: #### CBCA, CMP, LIVR, , 1 ####[facility] ([id number])[address], [address] [place] [address]DHK [Catalytic activity/Vol]14 U/LNormal0-41[facility] HospitalComment on above:Performed By: #### CBCA, CMP, LIVR, , 2776-04 ####[facility] ([id number])[address], [address], [place] [address]Oitxmzk [Mass/Vol]8.6 mg/dL Normal8.5-10.5PC[facility] Clinic Euclid HospitalComment on above:Performed By: #### CBCA, CMP, LIVR, , 2776-04 ####[facility] ([id number])[address], [address], [place] [address]Itqyxdyt [Moles/Vol]103 mmol/XByoxct01-415 [facility] HospitalComment on above:Performed By: #### CBCA, CMP, LIVR, , 2776-04 ####[facility] ([id number])[address] [address], [place] [address]TP8 [Moles/Vol]24 mmol/AGbnatf99-15HtxRtqbmxCleveland Clinic Euclid HospitalComment on above:Performed By: #### CBCA, CMP, LIVR, , 2776-04 ####[facility] ([id number])[address] [address], [place] [address]Ukwqxntnpo [Mass/Vol]1.31 mg/dLHigh0.40-1.00[facility] Comment on above:Result Comment: METHOD TRACEABLE TO IDMS STANDARDPerformed By: #### CBCA, CMP, LIVR, , 2776-04 ####[facility] ([id number])[address] [address], [place] [address]ZXH/1.73 sq M.predicted among non-blacks MDRD (S/P/Bld) [Vol rate/Area]46 mL/min/{1.73_m2}Low>59 [facility] HospitalComment on above:Result Comment: Reported eGFR is based on theCKD-EPI 2020 equation that doesnot use a race coefficient.Performed By: #### CBCA, CMP, LIVR, , 2776-04 ####[facility] ([id number])[address], [address] [place] [address]Khmnjlw [Mass/Vol]87 mg/dL Netowd46-32SqdWyqdvsKindred Hospital LimaComment on above:Performed By: #### CBCA, CMP, LIVR, , 2776-04 ####[facility] ([id number])[address], [address] [place] [address]Dvaildw [Mass/Vol]5.1 g/dLLow6.0-8.0 [facility] HospitalComment on above:Performed By: #### CBCA, CMP, LIVR, , 2776-04 ####[facility] ([id number])[address], [address], [place] [address]Imhi nitrogen [Mass/Vol]14 mg/dLNormal5-27ProKindred Hospital LimaComment on above:Performed By: #### CBCA, CMP, LIVR, , 2776-04 ####[facility] ([id number])[address], [address], [place] [address]Krlzzpz [Mass/Vol]2.9 g/dLLow3.2-5.3[facility] Comment on above:Performed By: #### CBCA, CMP, LIVR, , 2776-04 ####[facility] ([id number])[address], [place] [address] Performed By: #### LIVR ####[facility] ([id number])[address], [address], [place] [address]CCG [Catalytic activity/Vol]4 U/LNormal0-31 [facility] HospitalComment on above:Performed By: #### CBCA, CMP, LIVR, , 2776-04 ####[facility] ([id number])[address], [address], [place] [address]Ulzxrjgtl By: #### LIVR ####[facility] ([id number])[address], [address], [place] [address]Tahzotdtn [Mass/Vol]1.4 mg/dLHigh0.3-1.2[facility] Lynn HospitalComment on above:Performed By: #### CBCA, CMP, LIVR, , 2776-04 ####[facility] ([id number])[address], [address], [place] [address]Xdqgqqyot By: #### LIVR ####[facility] ([id number])[address], [address], [place] [address]JQJROQIHFWEUlh 53-13-2597Gsbgq gap [Moles/Vol]8 mmol/LNormal5-15[facility] Lynn HospitalComment on above:Performed By: #### ELEC, , 2776-04 ####[facility] ([id number])[address], [address], [place] [address]Utdmtldz [Moles/Vol]105 mmol/TFsiaom58-159KrvNvlufi Lynn HospitalComment on above:Performed By: #### ELEC, , 2776-04 ####[facility] ([id number])[address], [address], [place] [address]OW8 [Moles/Vol]25 mmol/BHuzhtu83-65PugZkpwqn Lynn HospitalComment on above:Performed By: #### ELEC, , 2776-04 ####[facility] ([id number])[address], [address], [place] [address]Uhdnebhno [Moles/Vol]3.9 mmol/LNormal3.5-5.0 [facility] Lynn HospitalComment on above:Performed By: #### ELEC, , 2776-04 ####[facility] ([id number])[address], [address], [place] [address]Pupmejskm By: #### CBCA, CMP, LIVR, , 2776-04 ####[facility] ([id number])[address], [address], [place] [address]Zxslvz [Moles/Vol]138 mmol/JGksmzn470-388ElrIpmatq Lynn HospitalComment on above:Performed By: #### ELEC, , 2776-04 ####[facility] ([id number])[address], [address], [place] [address]Hsidagvdi By: #### CBCA, CMP, LIVR, , 2776-04 ####[facility] ([id number])[address], [address], [place] [address]Wrrex gap [Moles/Vol]7 mmol/LNormal5-15[facility] HospitalComment on above:Performed By: #### ELEC, ####[facility] ([id number])[address], [address], [place] [address]Dagjckoo [Moles/Vol]105 mmol/XDohvwm22-815JuuCshzag Lynn HospitalComment on above:Performed By: #### ELEC, ####[facility] ([id number])[address], [id number], [place] [address]DM1 [Moles/Vol]26 mmol/HSgkdma38-16InxXwqiqn Lynn HospitalComment on above:Performed By: #### ELEC, ####[facility] ([id number])[address], [address], [place] [address]Jzmcurbis [Moles/Vol]3.9 mmol/LNormal3.5-5.0[facility] Lynn HospitalComment on above:Performed By: #### ELEC, ####[facility] ([id number])[address], [id number], [place] [address]Kvpqoe [Moles/Vol]138 mmol/HHobeso904-228BquWnwhxb Lynn HospitalComment on above: Performed By: #### ELEC, 93859-4 ####[facility] ([id number])[address], [id number], [place] [address]HLWQK PANELon 55-53-2727ZBP [Catalytic activity/Vol]79 U/JDlmkaq09-546VwsXmgtdi Lynn HospitalComment on above:Performed By: #### LIVR ####[facility] ([id number])[address], [address], [place] [address]DZA [Catalytic activity/Vol]15 U/LNormal0-41 [facility] HospitalComment on above:Performed By: #### LIVR ####[facility] ([id number])[address], [address] [place] [address] Bilirubin.direct [Mass/Vol]0.7 mg/dLHigh0.0-0.4[facility] Lynn HospitalComment on above:Performed By: #### CBCA, CMP, LIVR, 14494-7, 2777-1 ####[facility] ([id number])[address], [address], [place] [address]Lxllbfyxn By: #### LIVR ####[facility] ([id number])[address], [address], [place] [address]Vffjkbp [Mass/Vol]5.2 g/dLLow6.0-8.0[facility] Comment on above:Performed By: #### LIVR ####[facility] ([id number])[address], [address], [place] [address]OYBOGZJPUvx 06-16-2024 Magnesium [Mass/Vol]1.8 mg/dLNormal1.8-2.6[facility] Lynn HospitalComment on above:Performed By: #### ELEC, , 2776-04 ####[facility] ([id number])[address], [address], [place] [address]Wiclhtwad [Mass/Vol]1.9 mg/dLNormal1.8-2.6ProGreene Memorial Hospitalca [facility] HospitalComment on above:Performed By: #### ELEC, ####[facility] ([id number])[address], [address], [place] [address]WGGEMPOCJRqb 57-32-1324Qtoskqwpd [Mass/Vol]2.3 mg/dLLow 2.4-4.9ProGre[facility] Hospitalca [facility] HospitalComment on above:Performed By: #### ELEC, , 2776-04 ####[facility] ([id number])[address], [address], [place] [address]Wdiwvpopt [Mass/Vol]3.1 mg/dLNormal2.4-4.9Pro[facility] HospitalComment on above:Performed By: #### CBCA, CMP, LIVR, , 2776-04 ####[facility] ([id number])[address], [address], [place] [address]XSFWWNP AND INRon 04-36-1539ON Coag (PPP) [Time]14.5 sHigh9.8-13.2 [facility] HospitalComment on above:Performed By: #### PINR, 69550-2 ####[facility] ([id number])[address], [id number], [place] [address]QPY Coag (PPP) [Relative time]1.3 {INR}High0.9-1.2[facility] Comment on above:Performed By: #### PINR, 03567-2 ####[facility] ([id number])[address], [id number], [place] [address]AT Coag (PPP) [Time]15.1 sHigh9.8-13.2[facility] HospitalComment on above:Performed By: #### HUDSON, 25797-4 ####[facility] ([id number])[address], [address] [place] [address]Wtfallzlmp [Mass/Vol]on 44-29-4771TXHXPJCRPL03.8 ug/mLNormal 5.0-40.0[facility] HospitalComment on above:Result Comment: Peak 30-40 ug/mLTrough 5-20 ug/ml Performed By: #### 91871-1 ####[facility] ([id number])[address], [address] [place] [address]RN CHEST 1 VWon 10-59-4765XW CHEST 1 VWNormalProMediGrant Hospital HospitalaPTT Coag (PPP) [Time]on 01-35-0291sEOE Coag (Bld) [Time]33 s Qkvciz45-77BefXgicil [facility] HospitalComment on above:Performed By: #### HUDSON, 30770-6 ####[facility] ([id number])[address], [address] [place] [address]oPIA Coag (Bld) [Time]32 rGyrace38-00VxzHtmmhr [facility] HospitalComment on above:Performed By: #### HUDSON, 35134-0 ####[facility] ([id number])[address], SZITE002QRRPSN, [place] [address]GWNQGBTE BLOOD GASon 57-53-6937MRKOH'S TESTNormalProDoctors Hospital HospitalComment on above: Performed By: #### ABG ####[facility] ([id number])[address] [place], [place] [address]JMAE,DEFICIT6.0 MMOL/LHigh0.0-2.0[facility] Comment on above:Performed By: #### ABG ####[facility] ([id number])[address] [place], [place] [address]Nown iwfebqkummf58.6 [degF]Normal 37.0[facility] Lynn HospitalComment on above:Performed By: #### ABG ####[facility] ([id number])[address]TO[facility], [place] [address]JQD6 (Bld) [Moles/Vol]17.9 mmol/MCrn06-98TknTyruus Lynn HospitalComment on above: Performed By: #### ABG ####[facility] ([id number])[address] [place], [place] [address]WOTP. O2 CONC.40 %NormalProMedica Lynn HospitalComment on above:Performed By: #### ABG ####[facility] ([address] [place] [address])[address] [facility]ITALTO[facility], [place] [address]Ffqpnk (Bld) [Partial pressure]96 mm[Hg]Yiuftx38-353 [facility] HospitalComment on above:Performed By: #### ABG ####[facility] ([id number])[address] [place] [place], [place] [address]Bcsqoi saturation in Blood98.0 %Normal>90Pro[facility] HospitalComment on above: Performed By: #### ABG ####[facility] ([id number])[address], [place] [address]FYAATP SOURCEVentNormalProMedica Lynn HospitalComment on above:Performed By: #### ABG ####[facility] ([id number])[address], [place] [address]XEM422.0 YOXNBhf31-68DiaQhvifg Lynn HospitalComment on above:Performed By: #### ABG ####[facility] ([id number])[address] [place], [place] [address]pI (Bld)7.414 [pH]Normal7.350-7.450[facility] HospitalComment on above:Performed By: #### ABG ####[facility] ([id number])[address] [place], [place] [address]NMDUBY SITEALineNormalProMedica Coolidge HospitalComment on above:Performed By: #### ABG ####[facility] ([id number])[address] [place], [place] [address]WEEXQZ TYPEARTERIAL NormalProMedica Coolidge HospitalComment on above:Performed By: #### ABG ####[facility] ([id number])[address] [place] [address] BLOOD CULTUREon 81-26-2911Qhgkezql identified Aer cx Nom (Bld)CULTURE RESULTS NO GROWTH 5 DAYSNormalProMedica Coolidge HospitalCBC AND AUTO DIFFon 06-15-2024 ABSOLUTE BASOPHIL0.0 X10E9/LNormal0.0-0.2[facility] HospitalComment on above:Performed By: #### RENA, LIVR, , 2776-04, CBCA ####[facility] ([id number])[address], [address], [place] [address]NJMJMOHF NEUTROPHIL2.7 X10E9/LNormal1.5-6.6[facility] HospitalComment on above: Performed By: #### RENA, LIVR, , 2776-, CBCA ####[facility] ([id number])[address], [address], [place] [address]Rqkdtqxhy/100 WBC (Bld)1.2 %NormalProMedica Coolidge HospitalComment on above:Performed By: #### RENA, LIVR, , 2776-, CBCA ####[facility] ([id number])[address], [address], [place] [address]Fybcedfgbst (Bld) [#/Vol] 0.0 10*3/uLNormal0.0-0.4[facility] HospitalComment on above:Performed By: #### RENA, LIVR, , 2776-04, CBCA ####[facility] ([id number])[address], [address], [place] [address]Vkjyuuxqpxj/100 WBC (Bld) 0.8 %NormalProGreene Memorial Hospitalca [facility] HospitalComment on above:Performed By: #### RENA, [facility], , 2776-04, CBCA ####[facility] ([id number])[address], [address], [place] [address]Encussrtytq distribution width (RBC) [Ratio] 17.3 %High11.5-15.0Pro[facility] HospitalComment on above:Performed By: #### RENA, LIVR, , 2776-04, CBCA ####[facility] ([id number])[address], [address], [place] [address]Llnlxleaax (Bld) [Volume fraction]22.1 %Uqd54-07EzdJortod [place] HospitalComment on above:Performed By: #### RENA, LIVR, , 2776-04, CBCA ####[facility] ([id number])[address], [address], [place] [address]Wgmloipjdv (Bld) [Mass/Vol] 7.6 g/dLLow11.7-15.5PMercy Health [facility] Hospital HospitalComment on above:Performed By: #### RENA, LIVR, , 2776-04, CBCA ####[facility] ([id number])[address], [address], [place] [address]Ehslfeclfoz (Bld) [#/Vol] 0.7 10*3/uLLow1.0-3.5[facility] HospitalComment on above:Performed By: #### CMP, LIVR, , 2776-04, CBCA ####[facility] ([id number])[address], [address] [place] [address]Ochlaapbeyb/100 WBC (Bld) 19.1 %NormalProDoctors Hospital HospitalComment on above:Performed By: #### CMP, LIVR, , 2776-04, CBCA ####[facility] ([id number])[address], [address] [place] [address]KRI (RBC) [Entitic mass]32.9 gdTaqosi91-65 [facility] HospitalComment on above:Performed By: #### CMP, LIVR, , 2776-04, CBCA ####[facility] ([id number])[address], [address] [place] [address]EPNJ (RBC) [Mass/Vol]34.6 g/pPRpkpca85-21QtoDlykdf [place] HospitalComment on above:Performed By: #### CMP, LIVR, , 2776-04, CBCA ####[facility] ([id number])[address], [address] [place] [address]MII (RBC) [Entitic vol]95 cGAimvnu64-393HgcAisaxn [place] HospitalComment on above:Performed By: #### CMP, LIVR, , 2776-04, CBCA ####[facility] ([id number])[address], [address] [place] [address]Nsvrgxqtp (Bld) [#/Vol]0.3 10*3/uLNormal0-0.9[facility] HospitalComment on above: Performed By: #### CMP, LIVR, , 2777-1, CBCA ####[facility] ([id number])[address], [address], [place] [address]Azalakiob/100 WBC (Bld)7.7 %NormalProMedica Coolidge HospitalComment on above:Performed By: #### CMP, LIVR, , 2776-04, CBCA ####[facility] ([id number])[address], [address], [place] [address]Pkqzmkxqqsh/100 WBC (Bld) 71.2 %NormalProMedica Coolidge HospitalComment on above:Performed By: #### CMP, LIVR, , 2776-04, CBCA ####[facility] ([id number])[address], [address]TO[facility], [place] [address]Iaaahpdd mean volume (Bld) [Entitic vol]7.1 fLNormal7-12[facility] HospitalComment on above:Performed By: #### CMP, LIVR, , 2776-04, CBCA ####[facility] ([id number])[address], [address], [place] [address]Ejdoauqsf (Bld) [#/Vol]93 10*3/zNUuv461-868 [facility] HospitalComment on above:Performed By: #### CMP, LIVR, , 2776-04, CBCA ####[facility] ([id number])[address], [address], [place] [address]BVG COUNT2.32 X10E12/LLow3.80-5.20[facility] Comment on above:Performed By: #### CMP, LIVR, , 2776-04, CBCA ####[facility] ([id number])[address], [address], [place] [address]PMH (Bld) [#/Vol]3.8 10*3/uLLow4.0-11.0[facility] HospitalComment on above: Performed By: #### CMP, LIVR, , 2776-04, CBCA ####[facility] ([id number])[address], [address], [place] [address]QAENUYXZFPMVX METABOLIC PANELon 18-27-0995Qjryaur [Mass/Vol]3.3 g/dLNormal3.2-5.3[facility] HospitalComment on above:Performed By: #### CMP, LIVR, , 2776-04, CBCA ####[facility] ([id number])[address], [address], [place] [address]YGN [Catalytic activity/Vol]80 U/QNyrvdf31-237FydMmkjvb Lynn HospitalComment on above:Performed By: #### CMP, LIVR, , 2776-04, CBCA ####[facility] ([id number])[address], [address], [place] [address]OSY [Catalytic activity/Vol]6 U/LNormal0-31[facility] HospitalComment on above:Performed By: #### CMP, LIVR, , 2776-04, CBCA ####[facility] ([id number])[address], [address], [place] [address]Ngqtq gap [Moles/Vol]12 mmol/LNormal5-15[facility] HospitalComment on above:Performed By: #### CMP, LIVR, , 2776-04, CBCA ####[facility] ([id number])[address], [address], [place] [address]KDG [Catalytic activity/Vol]12 U/LNormal0-41[facility] HospitalComment on above:Performed By: #### CMP, LIVR, , 2776-04, CBCA ####[facility] ([id number])[address] [address]TO[facility], [place] [address]Vnmvdgutp [Mass/Vol]2.0 mg/dLHigh0.3-1.2PMercy Health [facility] HospitalComment on above:Performed By: #### RENA, LIVR, , 2776-04, CBCA ####[facility] ([id number])[address], [address], [place] [address]Tyrzqfw [Mass/Vol]8.7 mg/dL Normal8.5-10.5PMercy Health [facility] HospitalComment on above:Performed By: #### RENA, LIVR, , 2776-04, CBCA ####[facility] ([id number])[address], [address]TO[facility], [place] [address]Papbbfte [Moles/Vol]100 mmol/STotzqx82-403 ProMAdena Regional Medical CenterComment on above:Performed By: #### RENA, LIVR, , 2776-04, CBCA ####[facility] ([id number])[address] [address]TO[facility], [place] [address]RO2 [Moles/Vol]22 mmol/TFquzvz09-85WcwYlrmdy [place] [facility] Comment on above:Performed By: #### RENA, LIVR, , 2776-04, CBCA ####[facility] ([id number])[address] [address], [place] [address] Creatinine [Mass/Vol]2.42 mg/dLHigh0.40-1.00ProMediMadison HealthComment on above:Result Comment: METHOD TRACEABLE TO IDMS STANDARDPerformed By: #### RENA, LIVR, , 2776-04, CBCA ####[facility] ([id number])[address] [address], [place] [address]JFY/1.73 sq M.predicted among non-blacks MDRD (S/P/Bld) [Vol rate/Area]22 mL/min/{1.73_m2}Low>59ProKindred Hospital [facility] Comment on above:Result Comment: Reported eGFR is based on theCKD-EPI 2020 equation that doesnot use a race coefficient.Performed By: #### HAMIDA CHASE, , 2776-04, CBCA ####[facility] ([id number])[address], [address], [place] [address]Beexdwt [Mass/Vol]98 mg/bQFumetd90-34 ProMedicThe [facility] [place] [facility] HospitalComment on above:Performed By: #### RENA, LIVChristos, , 2776-04, CBCA ####[facility] ([id number])[address] [address], [place] [address]Kuloucr [Mass/Vol]5.1 g/dLLow6.0-8.0Pro[facility] HospitalComment on above:Performed By: #### REAN LIVChristos, , 2776-04, CBCA ####[facility] ([id number])[address] [address], [place] [address]Pjicml [Moles/Vol]134 mmol/LPrgydf661-921KdcAcwgsj [place] HospitalComment on above:Performed By: #### HAMIDA CHASE, , 2776-04, CBCA ####[facility] ([id number])[address] [address], [place] [address]Qjfu nitrogen [Mass/Vol]29 mg/dLHigh5-27[facility] HospitalComment on above:Performed By: #### RENA, LIVR, , 2776-04, CBCA ####[facility] ([id number])[address] [address]TO[facility], [place] [address]WBJKXBDLBZVWsz 06-15-2024 CO2 [Moles/Vol]24 mmol/OXjorly38-91IdjGvdozy [place] HospitalComment on above: Performed By: #### ELEC, , 2776-04 ####[facility] ([id number])[address], [place] [address]Lyddpuyzj [Moles/Vol]3.6 mmol/LNormal3.5-5.0[facility] HospitalComment on above:Performed By: #### ELEC, , 2776-04 ####[facility] ([id number])[address], [address], [place] [address]Xmjcrm [Moles/Vol]137 mmol/KYowacv141-385 [facility] HospitalComment on above:Performed By: #### ELEC, , 2776-04 ####[facility] ([id number])[address], [place] [address]Owuuk gap [Moles/Vol]11 mmol/LNormal5-15[facility] HospitalComment on above:Performed By: #### ELEC, , 2776-04 ####[facility] ([id number])[address], [place] [address] Performed By: #### ELEC, , ####[facility] ([id number])[address], [address], [place] [address]Xznddone [Moles/Vol]102 mmol/JYurcfe42-211GkbSpndap Lynn HospitalComment on above:Performed By: #### ELEC, , 2776-04 ####[facility] ([id number])[address], [address], [place] [address]Ykdvrrrvq By: #### ELEC, , ####[facility] ([id number])[address], [place] [address]DS5 [Moles/Vol]23 mmol/NQxefph21-56KktDyerbe Lynn HospitalComment on above:Performed By: #### ELEC, , ####[facility] ([id number])[address], [address] [place] [address]Cbywfi [Moles/Vol]136 mmol/LZtdfqa997-910EnuGoyiyg [facility] HospitalComment on above:Performed By: #### ELEC, , ####[facility] ([id number])[address], [address] [place] [address]FEUhb 39-47-8414Diuqhpbsho (Bld) [Volume fraction]22.7 %Ids39-74CnkYjiqcg [facility] HospitalComment on above:Performed By: #### HH ####[facility] ([id number])[address] [address] [place] [address]Ibdfbsjjfy (Bld) [Mass/Vol]7.7 g/dLLow11.7-15.5[facility] HospitalComment on above:Performed By: #### HH ####[facility] ([id number])[address] [address] [place] [address]TNTCY PANELon 28-81-8890Wfwtlfvtl.direct [Mass/Vol]0.9 mg/dLHigh0.0-0.4[facility] HospitalComment on above:Performed By: #### CMP, LIVR, , 2776-04, CBCA ####[facility] ([id number])[address] [address] [place] [address]TGFSNWYAUjm 57-63-2903Kivftxtrt [Mass/Vol]1.9 mg/dLNormal1.8-2.6[facility] HospitalComment on above:Performed By: #### ELEC, , 2776-04 ####[facility] ([id number])[address] [address], [place] [address]Tjedjjncv By: #### CMP, LIVR, , 2776-04, CBCA ####[facility] ([id number])[address], [address] [address]Akpriwvbd [Mass/Vol]2.0 mg/dLNormal1.8-2.6[facility] HospitalComment on above: Performed By: #### ELEC, , 71504-0 ####[facility] ([id number])[address], [address] [address]IDJEWFJMZDsx 06-15-2024 Phosphate [Mass/Vol]2.2 mg/dLLow2.4-4.9[facility] HospitalComment on above:Performed By: #### ELEC, , 2776-04 ####[facility] ([id number])[address], [address], [place] [address]Rwguvnocu [Mass/Vol]3.8 mg/dLNormal2.4-4.9[facility] Lynn HospitalComment on above:Performed By: #### CMP, LIVR, , 2776-04, CBCA ####[facility] ([id number])[address], [address] [address]BSIBXHNKQvz 06-15-2024 Potassium [Moles/Vol]3.8 mmol/LNormal3.5-5.0[facility] Lynn HospitalComment on above:Performed By: #### 2823-3 ####[facility] ([id number])[address], [address], [place] [address]Fnupsegwz By: #### CMP, LIVR, , 2776-04, CBCA ####[facility] ([id number])[address], [address], [place] [address]Sxcqzrydi By: #### ELEC, , ####[facility] ([id number])[address], [address], [place] [address]TJFUGDR AND INRon 32-52-3499QG Coag (PPP) [Time]15.2 sHigh9.8-13.2 [facility] HospitalComment on above:Performed By: #### HUDSON, 03523-6 ####[facility] ([id number])[address], [id number], [place] [address]OYT Coag (PPP) [Relative time]1.3 {INR}High0.9-1.2[facility] Comment on above:Performed By: #### HUDSON, 36815-0 ####[facility] ([id number])[address], [id number], [place] [address]WZ Coag (PPP) [Time]15.3 sHigh9.8-13.2PC[facility] Euclid HospitalComment on above:Performed By: #### HUDSON, 71922-4 ####[facility] ([id number])[address], [address], [place] [address]Bujjwrvjhk [Mass/Vol]on 08-97-0405RBJQWNGYRM49.0 ug/mLNormal 5.0-40.0[facility] HospitalComment on above:Result Comment: Peak 30-40 ug/mLTrough 5-20 ug/ml Performed By: #### 20775-7 ####[facility] ([id number])[address], [address], [place] [address]KVEBMBTMCX93.4 ug/mLNormal5.0-40.0[facility] Comment on above:Result Comment: Peak 30-40 ug/mLTrough 5-20 ug/ml Performed By: #### ELEC, 08749-0, 06548-1 ####[facility] ([id number])[address], [address], [place] [address] CHEST 1 VWon 76-22-6960GC CHEST 1 VWNormalProMedica Van Wert County HospitalaPTT Coag (PPP) [Time]on 98-92-2724dXTY Coag (Bld) [Time]38 sHigh 26-37[facility] Lynn HospitalComment on above:Performed By: #### PINChristos, 48187-9 ####[facility] ([id number])[address], [id number], [place] [address]WWUWUZVT BLOOD GASon 30-78-1107LCFEG'S TESTPassNormalProMedica Lynn HospitalComment on above:Performed By: #### ABG ####[facility] ([id number])[address] [place], [place] [address]GFPE,DEFICIT8.0 MMOL/LHigh0.0-2.0 [facility] HospitalComment on above:Performed By: #### ABG ####[facility] ([id number])[address] [place], [place] [address]Ksfv dhjlmbqekcy39.6 [degF]Nyuuwx86.0ProMedica Lynn HospitalComment on above: Performed By: #### ABG ####[facility] ([id number])[address] [place], [place] [address]YSE8 (Bld) [Moles/Vol]18.8 mmol/NFws46-10AwuXteytn Lynn HospitalComment on above:Performed By: #### ABG ####[facility] ([id number])[address] [place], [place] [address]SOAW. O2 CONC.40 %NormalProMedica Lynn HospitalComment on above:Performed By: #### ABG ####[facility] ([id number])[address] [place], [place] [address]Izsykp (Bld) [Partial pressure]118 mm[Hg]Ctbk88-290CxzTfcyxf [facility] HospitalComment on above:Performed By: #### ABG ####[facility] ([id number])[address] [place], [place] [address]Agqfzz saturation in Blood98.0 %Normal>90ProMedica [facility]idge HospitalComment on above:Performed By: #### ABG ####[facility] ([id number])[address] [place], [place] [address]QLTBIN SOURCEVentNormalProDoctors Hospital HospitalComment on above:Performed By: #### ABG ####[facility] ([address] [place] [address])[address] [place], [place] [address]HKB124.7 DSNMMdhr38-76 [facility] HospitalComment on above:Performed By: #### ABG ####[facility] ([address] [place] [address])[address] [place], [place] [address]kX (Bld)7.223 [pH]Low7.350-7.450ProDoctors Hospital HospitalComment on above:Performed By: #### ABG ####[facility] ([address] [place] [address])[address] [place] [address] SAMPLE SITELRadNormalProGreene Memorial Hospitalca [facility] HospitalComment on above:Performed By: #### ABG ####[facility] ([address] [place] [address])[address] [facility], [place] [address]WLUJBU TYPEARTERIALNormalProGreene Memorial Hospitalca [facility] HospitalComment on above: Performed By: #### ABG ####[facility] ([id number])[address] [facility], [place] [address]NCSEZ METABOLIC PANLon 45-04-4246Obrbw gap [Moles/Vol]10 mmol/LNormal5-15ProMedica Lynn HospitalComment on above:Performed By: #### PIPO, LIVR ####[facility] ([id number])[address] [address], [place] [address]Lkufkpi [Mass/Vol]8.0 mg/dLLow8.5-10.5ProMedica [facility]idge HospitalComment on above:Performed By: #### BMP, LIVR ####[facility] ([id number])[address], [address], [place] [address]Hisyujhh [Moles/Vol]100 mmol/FIcbhks13-722IfoWvnnuh [facility] HospitalComment on above: Performed By: #### PIPO, LIVR ####[facility] ([id number])[address] [address], [place] [address]Whymoepabv [Mass/Vol]3.64 mg/dLHigh0.40-1.00 [facility] HospitalComment on above:Result Comment: METHOD TRACEABLE TO IDAK STANDARDPerformed By: #### PIPO, LIVR ####[facility] ([id number])[address] [address]PGG/1.73 sq M.predicted among non-blacks MDRD (S/P/Bld) [Vol rate/Area]14 mL/min/{1.73_m2}Low>59 ProMmoody hospitala [facility] HospitalComment on above:Result Comment: Reported eGFR is based on theCKD-EPI 2020 equation that doesnot use a race coefficient.Performed By: #### BMP, LIVR ####[facility] ([id number])[address] [address], [place] [address]Ctqdgfn [Mass/Vol]97 mg/tPNmthmz85-83BgoFihmnd [facility] HospitalComment on above:Performed By: #### BMP, LIVR ####[facility] ([id number])[address] [address] [place] [address]Enrmrewdy [Moles/Vol]4.8 mmol/LNormal3.5-5.0ProKindred Hospital LimaComment on above: Performed By: #### PIPO, LIVR ####[facility] ([id number])[address], [address], [place] [address]Nktasc [Moles/Vol]131 mmol/LBqz200-641 [facility] HospitalComment on above:Performed By: #### PIPO, LIVR ####[facility] ([id number])[address], [address] [place] [address]Kjdy nitrogen [Mass/Vol]42 mg/dLHigh5-27ProKindred Hospital LimaComment on above:Performed By: #### PIPO, LIVR ####[facility] ([id number])[address], [address] [place] [address]YWH AND AUTO DIFFon 35-15-2365PRKQVLSI BASOPHIL0.1 X10E9/LNormal0.0-0.2[facility] Comment on above:Performed By: #### CBCA ####[facility] ([id number])[address], [address] [place] [address]LBPOFZCD NEUTROPHIL4.3 X10E9/LNormal1.5-6.6[place] [facility] HospitalComment on above:Performed By: #### CBCA ####[facility] ([id number])[address], [address] [place] [address]Eusgzxfjw/100 WBC (Bld)0.9 %NormalLima City Hospital Comment on above:Performed By: #### CBCA ####[facility] ([id number])[address], [address] [place] [address], [place] [address]Yshhhpamlyl (Bld) [#/Vol] 0.0 10*3/uLNormal0.0-0.4ProMedica Lynn HospitalComment on above:Performed By: #### CBCA ####[facility] ([id number])[address], [address], [place] [address]Nedcufrxwwt/100 WBC (Bld)0.1 %NormalLima City Hospital Comment on above:Performed By: #### CBCA ####[facility] ([id number])[address], [address], [place] [address]Mwrsdqtqejs distribution width (RBC) [Ratio]16.9 %High11.5-15.0ProGreene Memorial Hospitalca [facility] HospitalComment on above: Performed By: #### CBCA ####[facility] ([id number])[address] [address], [place] [address]Jdfanycxli (Bld) [Volume fraction]23.1 %Low 35-47ProGreene Memorial Hospitalca [facility] HospitalComment on above:Performed By: #### CBCA ####[facility] ([id number])[address] [address], [place] [address]Tusbcwgrdk (Bld) [Mass/Vol]7.5 g/dLLow11.7-15.5[facility] Comment on above:Performed By: #### CBCA ####[facility] ([id number])[address] [address], [place] [address]Nfinclnwnbv (Bld) [#/Vol] 0.6 10*3/uLLow1.0-3.5PMercy Health Clerm[facility] Hospital HospitalComment on above:Performed By: #### CBCA ####[facility] ([id number])[address] [address] [place], [place] [address]Gvcrnxyjcvy/100 WBC (Bld)11.5 %NormalProDoctors Hospital HospitalComment on above:Performed By: #### CBCA ####[facility] ([id number])[address], [address], [place] [address]EWR (RBC) [Entitic mass]32.8 ybCxazhs47-43AzvZjpowq Lynn HospitalComment on above:Performed By: #### CBCA ####[facility] ([id number])[address], [address] [place] [address]DBRG (RBC) [Mass/Vol]32.4 g/nFMgddma27-02ZadTichtb Lynn HospitalComment on above:Performed By: #### CBCA ####[facility] ([id number])[address], [address] [place] [address]OTK (RBC) [Entitic vol] 101 gKYgmn58-760DfvXjsipi Lynn HospitalComment on above:Performed By: #### CBCA ####[facility] ([id number])[address], [address] [place] [address]Aeoosheby (Bld) [#/Vol]0.4 10*3/uLNormal0-0.9ProMedica Lynn HospitalComment on above:Performed By: #### CBCA ####[facility] ([id number])[address], [address] [place] [address]Blnshbini/100 WBC (Bld) 6.8 %NormalProMedica Lynn HospitalComment on above:Performed By: #### CBCA ####[facility] ([id number])[address], [address] [place] [address]Ttohwubclyr/100 WBC (Bld)80.7 %NormalProMedica Lynn HospitalComment on above:Performed By: #### CBCA ####[facility] ([id number])[address], [address] [place] [address]Unaxzwgq mean volume (Bld) [Entitic vol]7.2 fLNormal7-12ProMedica Lynn HospitalComment on above:Performed By: #### CBCA ####[facility] ([id number])[address], [address], [place] [address]Cjvppvnsk (Bld) [#/Vol]148 10*3/bWGqj437-075YaoYzadddLima City Hospital Comment on above:Performed By: #### CBCA ####[facility] ([id number])[address], [address], [place] [address]HSV COUNT2.28 X10E12/LLow 3.80-5.20ProKindred Hospital LimaComment on above:Performed By: #### CBCA ####[facility] ([id number])[address], [address], [place] [address]WZW (Bld) [#/Vol]5.3 10*3/uLNormal4.0-11.0ProKindred Hospital LimaComment on above:Performed By: #### CBCA ####[facility] ([id number])[address], [address] [place] [address]NPIEXZTI BASOPHIL0.0 X10E9/LNormal0.0-0.2[facility] HospitalComment on above:Performed By: #### CBCA, CMP, 38008-3, 7-1, TSHR, 3024-7, 5196-1, 5193-8, 4679-7, 85016-9 ####[facility] ([id number])[address], [address] [place] [address]XTILLGMG NEUTROPHIL3.8 X10E9/LNormal1.5-6.6[facility] Comment on above:Performed By: #### CBCA, CMP, 64426-2, 2777-1, TSHR, 3024-7, 5196-1, 5193-8, 4679-7, 10737-7 ####[facility] ([id number])[address], [address], [place] [address]Euhnwiucx/100 WBC (Bld)0.7 %NormalProKindred Hospital LimaComment on above:Performed By: #### CBCA, CMP, 65600-0, 2777-1, TSHR, 3024-7, 5196-1, 5193-8, 4679-7, 19835-1 ####[facility] ([id number])[address], [address] [place] [address] Eosinophils (Bld) [#/Vol]0.0 10*3/uLNormal0.0-0.4[facility] Comment on above:Performed By: #### CBCA, CMP, 50985-5, 2777-1, TSHR, 3024-7, 5196-1, 5193-8, 4679-7, 65712-9 ####[facility] ([id number])[address], [address] [place] [address]Nnozfiyutuu/100 WBC (Bld) 0.3 %NormalProDoctors Hospital HospitalComment on above:Performed By: #### CBCA, CMP, 46474-7, 2777-1, TSHR, 3024-7, 5196-1, 5193-8, 4679-7, 71956-8 ####[facility] ([id number])[address], [address] [place] [address] Erythrocyte distribution width (RBC) [Ratio]16.8 %High11.5-15.0[place] HospitalComment on above:Performed By: #### CBCA, CMP, 99849-7, 2777-1, TSHR, 3024-7, 5196-1, 5193-8, 4679-7, 37494-4 ####[facility] ([id number])[address], [address] [place] [address]Nibcvnpokp (Bld) [Volume fraction]23.6 %Uzg01-09OgeYxnjvi [place] HospitalComment on above:Performed By: #### CBCA, CMP, 56482-8, 2777-1, TSHR, 3024-7, 5196-1, 5193-8, 4679-7, 74335-7 ####[facility] ([id number])[address], [address] [place] [address]Vgbogtdroi (Bld) [Mass/Vol]7.6 g/dLLow11.7-15.5[facility] Comment on above:Performed By: #### CBCA, CMP, 80370-0, 2777-1, TSHR, 3024-7, 5196-1, 5193-8, 4679-7, 16701-3 ####[facility] ([id number])0 [facility], [address] [place] [address]Wdzhygzidyh (Bld) [#/Vol] 0.5 10*3/uLLow1.0-3.5PC[facility]ucl[facility] HospitalComment on above:Performed By: #### CBCA, CMP, 35101-2, 2777-1, TSHR, 3024-7, 5196-1, 5193-8, 4679-7, 47217-6 ####[facility] ([id number])0 [facility], [address] [place] [address]Lgvuiftpvjk/100 WBC (Bld)9.8 %NormalProKindred Hospital LimaComment on above:Performed By: #### CBCA, CMP, 12864-9, 2777-1, TSHR, 3024-7, 5196-1, 5193- 8, 4679-7, 22406-1 ####[facility] ([id number])[address], [address] [place] [address]VTJ (RBC) [Entitic mass]32.7 ttEwqacd45-87XqhGwkbtn [place] HospitalComment on above:Performed By: #### CBCA, CMP, 31274-3, 2777-1, TSHR, 3024-7, 5196-1, 5193-8, 4679-7, 46644-7 ####[facility] ([id number])[address], [address], [place] [address]QCDX (RBC) [Mass/Vol]32.0 g/zDXqqlqb11-68DxeOwfgcu [place] HospitalComment on above:Performed By: #### CBCA, CMP, 37017-1, 2777-1, TSHR, 3024-7, 5196-1, 5193-8, 4679-7, 92852-2 ####[facility] ([id number])[address], [address] [place] [address]HLS (RBC) [Entitic vol]102 mUJudn02-080OmsIsxjlyKindred Hospital LimaComment on above:Performed By: #### CBCA, CMP, 42449-2, 2777-1, TSHR, 3024-7, 5196-1, 5193- 8, 4679-7, 87027-4 ####[facility] ([id number])[address], [address] [place] [address]Gcmorbjah (Bld) [#/Vol]0.4 10*3/uLNormal0-0.9[place] [facility] HospitalComment on above:Performed By: #### CBCA, CMP, 32281-5, 2777-1, TSHR, 3024-7, 5196-1, 5193-8, 4679-7, 86549-2 ####[facility] ([id number])[address], [address] [place] [address]Osfsepenl/100 WBC (Bld)9.1 %NormalProKindred Hospital LimaComment on above:Performed By: #### CBCA, CMP, 84701-0, 2777-1, TSHR, 3024-7, 5196-1, 5193-8, 4679-7, 94710-1 ####[facility] ([id number])[address], [address] [place] [address] Neutrophils/100 WBC (Bld)80.1 %NormalProDoctors Hospital HospitalComment on above: Performed By: #### CBCA, CMP, 85547-8, 2777-1, TSHR, 3024-7, 5196-1, 5193-8, 4679-7, 44187-2 ####[facility] ([id number])[address], [address], [place] [address]Abuddzmd mean volume (Bld) [Entitic vol]7.3 fLNormal 7-12Pro[facility] HospitalComment on above:Performed By: #### CBCA, CMP, 03473-1, 2777-1, TSHR, 3024-7, 5196-1, 5193-8, 4679-7, 62504-0 ####[facility] ([id number])[address], [address] [place] [address] Platelets (Bld) [#/Vol]138 10*3/hONjv598-999SeuPgqvtz [place] HospitalComment on above:Performed By: #### CBCA, CMP, 29500-8, 2777-1, TSHR, 3024-7, 5196-1, 5193- 8, 4679-7, 78421-2 ####[facility] ([id number])[address], [address] [place] [address] 69[address]ZGK COUNT2.31 X10E12/LLow3.80-5.20[facility] HospitalComment on above:Performed By: #### CBCA, CMP, 25778-4, 2777-1, TSHR, 3024-7, 5196-1, 5193-8, 4679-7, 42171-1 ####[facility] ([id number])[address], [address] [place] [address]HOW (Bld) [#/Vol]4.8 10*3/uLNormal4.0-11.0ProDoctors Hospital HospitalComment on above:Performed By: #### CBCA, CMP, 51209-6, 2777-1, TSHR, 3024-7, 5196-1, 5193-8, 4679-7, 85278-5 ####[facility] ([id number])[address], [address] [place] [address] 84496ZCKBRJSXLP PROFILEon 26-92-7920RFKQCSBZVA C369 mg/oGIma42-029HacWhldql Lynn HospitalComment on above:Performed By: #### C34, SIFE, SPE, 41697-8, 08711-3 ####[facility] ([id number])[address], [address] [place] [address] 97[address]VTMGYFSJOV C413 mg/oHGml56-46WpcPcahzk Lynn HospitalComment on above:Performed By: #### C34, SIFE, SPE, 38421-8, 01446-3 ####[facility] ([id number])[address], [address] [place] [address] COMPREHENSIVE METABOLIC PANELon 43-39-4848Wutppsv [Mass/Vol]3.1 g/dLLow3.2-5.3 [facility] Lynn HospitalComment on above:Performed By: #### CBCA, CMP, 81366-4, 2777-1, TSHR, 3024-7, 5196-1, 5193-8, 4679-7, 55150-2 ####[facility] ([id number])[address], [address] [place] [address] 89287ZOH [Catalytic activity/Vol]119 U/FOcnhvt15-028HzdBxsykl Lynn HospitalComment on above: Performed By: #### CBCA, CMP, 55924-9, 2777-1, TSHR, 3024-7, 5196-1, 5193-8, 4679-7, 48229-8 ####[facility] ([id number])[address], [address] [place] [address] 12[address]UIW [Catalytic activity/Vol]6 U/LNormal0-31Pro[facility]ica Lynn HospitalComment on above:Performed By: #### CBCA, CMP, 52584-6, 2777-1, TSHR, 3024-7, 5196-1, 5193-8, 4679-7, 78278-2 ####[facility] ([id number])[address], [address], [place] [address]Drhcm gap [Moles/Vol]10 mmol/LNormal5-15ProKindred Hospital LimaComment on above:Performed By: #### CBCA, CMP, 57022-2, 2777-1, TSHR, 3024-7, 5196-1, 5193-8, 4679-7, 41605-7 ####[facility] ([id number])[address], [address], [place] [address]TRL [Catalytic activity/Vol]12 U/LNormal0-41Pro[facility] Comment on above:Performed By: #### CBCA, CMP, 92542-5, 2777-1, TSHR, 3024-7, 5196-1, 5193-8, 4679-7, 06964-5 ####[facility] ([id number])[address], [address], [place] [address]Flezonjkl [Mass/Vol]0.8 mg/dLNormal0.3-1.2PMercy Health [facility] Hospital HospitalComment on above:Performed By: #### CBCA, CMP, 04624-4, 2777-1, TSHR, 3024-7, 5196-1, 5193-8, 4679-7, 08307-0 ####[facility] ([id number])[address], [address], [place] [address]Pippgol [Mass/Vol]7.9 mg/dLLow8.5-10.5PC[facility] Clinic [facility]uclid HospitalComment on above:Performed By: #### CBCA, CMP, 19732-5, 2777-1, TSHR, 3024-7, 5196-1, 5193- 8, 4679-7, 32769-8 ####[facility] ([id number])[address], [address], [place] [address]Hzfgvkgw [Moles/Vol]98 mmol/SLspixc11-640DkfLrirac [place] HospitalComment on above:Performed By: #### NAMITA, RENA, 95171-0, 2777-1, TSHR, 3024-7, 5196-1, 5193-8, 4679-7, 32888-2 ####[facility] ([id number])[address], [address], [place] [address]WI8 [Moles/Vol]20 mmol/LLow 22-32PC[facility]ucl[facility] HospitalComment on above:Performed By: #### NAMITA, RENA, 68008-3, 2777-1, TSHR, 3024-7, 5196-1, 5193-8, 4679-7, 21939-5 ####[facility] ([id number])[address], [address] [place] [address] Creatinine [Mass/Vol]3.45 mg/dLHigh0.40-1.00ProKindred Hospital LimaComment on above:Result Comment: METHOD TRACEABLE TO IDMS STANDARDPerformed By: #### NAMITA, RENA, 10208-8, 2777-1, TSHR, 3024-7, 5196-1, 5193-8, 4679-7, 94595-6 ####[facility] ([id number])[address], [address] [place] [address] GFR/1.73 sq M.predicted among non-blacks MDRD (S/P/Bld) [Vol rate/Area]15 mL/min/{1.73_m2}Low>59ProKindred Hospital LimaComment on above:Result Comment: Reported eGFR is based on theCKD-EPI 2020 equation that doesnot use a race coefficient.Performed By: #### NAMITA, CMP, 60610-6, 2777-1, TSHR, 3024-7, 5196-1, 5193-8, 4679-7, 07271-5 ####[facility] ([id number])[address], [address], [place] [address]Yblutxt [Mass/Vol]91 mg/cPLvpnyf77-18 [facility] HospitalComment on above:Performed By: #### CBCA, CMP, 43764-6, 2776-1, TSHR, 3024-7, 5196-1, 5193-8, 4679-7, 68048-8 ####[facility] ([id number])[address], [address], [place] [address]Soznvezpg [Moles/Vol]4.7 mmol/LNormal3.5-5.0ProKindred Hospital LimaComment on above: Performed By: #### CBCA, CMP, 49826-4, 2776-1, TSHR, 3024-7, 5196-1, 5193-8, 4679-7, 65048-7 ####[facility] ([id number])[address], [address], [place] [address]Ifybind [Mass/Vol]5.9 g/dLLow6.0-8.0ProKindred Hospital LimaComment on above:Performed By: #### CBCA, CMP, 48830-8, 7-1, TSHR, 3024-7, 5196-1, 5193-8, 4679-7, 51043-7 ####[facility] ([id number])[address], [address], [place] [address]Kljjrg [Moles/Vol]128 mmol/VYdx085-297MesNjjcxjKindred Hospital LimaComment on above:Performed By: #### CBCA, CMP, 92097-4, 7-1, TSHR, 3024-7, 5196-1, 5193-8, 4679-7, 48876-7 ####[facility] ([id number])[address] [place] [address], [address] [place] [address]Afve nitrogen [Mass/Vol]43 mg/dLStevens Clinic Hospital524 Martin StreetComment on above:Performed By: #### CBCA, CMP, 41440-8, 2777-1, TSHR, 3024-7, 5196-1, 5193-8, 4679-7, 45817-6 ####[facility] ([id number])[address] [place] [address], [address] [place] [address] 61797XF ABDOMEN AND PELVIS WO CONTon 81-70-6463TN ABDOMEN AND PELVIS WO CONTNormalProKindred Hospital LimaCT CHEST WO CONTon 87-57-2600AV CHEST WO CONTNoCleveland Clinic Fairview HospitalCT NECK SOFT TISSUE WO CONTon 18-60-6587YP NECK SOFT TISSUE WO [facility] Clinical Pathologyon 11-13-6303Alucokyt PathologyEast [facility] Comment on above:Result Comment: [facility] [address] [place] [address] Clinical Pathology ReportPatient Name:ORESTES ALVARES:1965 (Age: 59)Gender:FTaken:06/14/2024Reported:06/17/2024Physician(s):Katarina Yu M.D. ([phone])Copy To: Rec. #:[id number]: #[id number] Pathologic DiagnosisMonoclonal protein in gamma region, 0.2 g/dL, IgG kappa.Mild hypoalbuminemia. Report Electronically Signed Outdf/06/17/2024Eben Pappas MDInterpretation performed [place] [address], License number: [id number].Clinical JrhjhozS96.91, J96.01, J96.00.SERUM PROTEIN ELECTROPHORESISSAMPLE NO: [id number] FRACTION CONCENTRATIONS (g/dL) PATIENT REFERENCE RANGEAlbumin 3.2 L 3.4 - 5.3Alpha-1 globulin 0.4 0.1 - 0.4Alpha-2 globulin 0.5 0.4 - 1.1Beta globulin 0.9 0.5 - 1.2Gamma globulin 1.0 0.5 - 1.61 0.2Total protein 6.0 6.0 - 8.0(Electrophoretic gels and densitometric tracings on file in lab.)SERUM IEPIMMUNOGLOBULIN LEVELS (mg/dL): IgG : 1039 IgA : 568 IgM : 162 Free [place]: 22.41 Free Lambda: 13.82 Free [place]/Lambda ratio: 1.62Specimen(s) Received1: Serum Protein Electrophoresis2: Serum IEPFee Codes(s):1;83777-325; 67094-80Szppqh Comment: [facility] [address] [place] [address] Tel: Clinical Pathology ReportPatient Name:ORESTES ALVARES:1965 (Age: 59)Gender:FTaken:06/14/2024Reported:06/17/2024Physician(s):Katarina Yu M.D. ([phone])Copy To: Rec. #:[id number]: #[id number] Pathologic DiagnosisSerum like pattern suggestive of non- selective proteinuria.No monoclonal protein identified. Report Electronically Signed Outdf/06/17/2024Eben Pappas MDInterpretationperformed at [place] [address], License number: [id number].Clinical LrfiugdG14.91, J96.01, J96.00.URINE PROTEIN ELECTROPHORESISSAMPLE NUMBER: [id number] ELECTROPHORETIC CONCENTRATIONS (%) ? 100.0 Urine Protein 820 mg/L(Electrophoretic gels and densitometric tracings on file in lab.)Specimen(s) Received Urine Protein ElectrophoresisFee Codes(s):1; 09503-07Ffxspkha Pathology Blood Smear Reviewon 18-69-5167Dcgnylzl Pathology Blood Smear ReviewNormalProGreene Memorial Hospitalca Van Wert County HospitalComment on above: Result Comment: [facility] [address] [place] [address] Clinical Pathology ReportPatient Name:ORESTES ALVARES:1965 (Age: 59)Gender:FTaken:06/14/2024Reported:06/19/2024Physician(s):VAMSI [facility] To: Rec. #:[id number]: #[id number] Pathologic DiagnosisPeripheral smear review:- Marked macrocytic anemia [...] Electronically Signed Outduvall/06/19/2024Jamar Hammond MDInterpretation performed at [facility], [address] [place] [address], License number: [id number].Clinical History___BLOODSMEAR EVALUATIONCBC (06/14/2024 0245): WBC: 4.8 x [...] no clumpsSpecimen(s) Received Blood Smear ReviewFee Codes(s):1; 72439 ELECTROLYTESon 78-29-7131Adxrb gap [Moles/Vol]13 mmol/LNormal5-15ProMedica Lynn HospitalComment on above:Performed By: #### ELEC, , 2776-04 ####[facility] ([id number])[address], [place] [address]Gybeptnon [Moles/Vol]4.0 mmol/LNormal3.5-5.0[facility] Comment on above:Performed By: #### ELEC, , 2776-04 ####[facility] ([id number])[address], [address], [place] [address]Bdltxx [Moles/Vol]135 mmol/JAqdesp745-330LguGlwzle Lynn HospitalComment on above: Performed By: #### ELEC, , 2776-04 ####[facility] ([id number])[address], [address], [place] [address]Junxq gap [Moles/Vol]12 mmol/LNormal5-15ProMedica Lynn HospitalComment on above:Performed By: #### DEV TREVIÑO, ELEC, , 2776-04 ####[facility] ([id number])[address], [address], [place] [address]Uqupvfqj [Moles/Vol]101 mmol/STbsvsv29-235NzwJiokqb Lynn HospitalComment on above:Performed By: #### ELEC, , 2776-04 ####[facility] ([id number])[address], [address], [place] [address]Adopifviq By: #### DEV RTEVIÑO, ELEC, , 2776-04 ####[facility] ([id number])[address], [address], [place] [address]RU3 [Moles/Vol]20 mmol/HOui19-74CvmVmuahaCleveland Clinic [facility]uclid Hospital Comment on above:Performed By: #### DEV TREVIÑO, ELEC, , 2776-04 ####[facility] ([id number])[address], [address], [place] [address] Potassium [Moles/Vol]4.3 mmol/LNormal3.5-5.0ProKindred Hospital LimaComment on above:Performed By: #### PINR, DEV, ELEC, , 2776-04 ####[facility] ([id number])[address], [address], [place] [address]Yqabii [Moles/Vol]133 mmol/SAqi997-937TajJclhrj [place] HospitalComment on above: Performed By: #### DEV TREVIÑO, ELEC, , 2776-04 ####[facility] ([id number])[address], [address], [place] [address]PK5 [Moles/Vol]21 mmol/JOle90-47NmcYklowx [place] HospitalComment on above:Performed By: #### ELEC, , 2776-04 ####[facility] ([id number])[address], [address], [place] [address]Hmgabxecr By: #### BMP, LIVR ####[facility] ([id number])[address], [address], [place] [address]UQYADEOVbl 38-61-8024Uqceuwdu [Mass/Vol]42 ng/kJFjdpxw39-241OspAasvsw [facility] [facility] Comment on above:Performed By: #### FEPR, 2276-4, 89898-8, TSHR, 2284-8, 2132-9, 3024-7, 2532-0 ####[facility] ([id number])[address], [address], [place] [address]CKSY LIGHT CHAINSon 96-17-5256PUZF POONAM/LAMBD RATIO1.62 Normal0.26-1.65Pro[facility] HospitalComment on above:Performed By: #### C34, SIFE, SPE, 74590-8, 06006-0 ####[facility] ([id number])[address], [address], [place] [address]JUOY KAPPA LT KPXUJH02.41 mg/dLHigh0.33-1.94 ProMOhioHealth Southeastern Medical Center HospitalComment on above:Performed By: #### C34, SIFE, SPE, 04249-8, 15609-4 ####[facility] ([id number])[address] [facility], [address], [place] [address]HYJW LAMBDA LT BNKGOF71.82 mg/dLHigh0.57-2.63Pro[facility] HospitalComment on above:Performed By: #### C34, SIFE, SPE, 85477-6, 06408-7 ####[facility] ([id number])[address], [address], [place] [address]MICO T4on 77-04-3874Ljlv T4 [Mass/Vol]0.58 ng/dLLow0.61-1.60 [facility] HospitalComment on above:Performed By: #### FEPR, 2276-4, 44489-4, TSHR, 2284-8, 2132-9, 3024-7, 2532-0 ####[facility] ([id number])[address], [address], [place] [address]Xpmm T4 [Mass/Vol]0.50 ng/dLLow0.61-1.60Pro[facility] Hospital HospitalComment on above:Performed By: #### CBCA, CMP, 95411-0, 2777-1, TSHR, 3024-7, 5196-1, 5193-8, 4679-7, 79482-1 ####[facility] ([id number])[address] [place] [address], [address] [address]Xocqjv [Mass/Vol]on 24-01-8938ELVAH ACID11.1 ng/mLNormal>5.8Lima City HospitalComment on above:Result Comment: NEW REFERENCE RANGEPerformed By: #### FEPR, 2276-4, 69221-0, TSHR, 2284-8, 2132-9, 3024-7, 2532-0 ####[facility] ([id number])[address] [place] [address], [address] [place] [address] Glomerular basement membrane IgG Qn (S)on 13-53-3420GLV IgG Ab<0.2Normal<1.0 ProMAdena Regional Medical CenterComment on above:Performed By: #### C34, SIFE, SPE, 57284-2, 93427-1 ####[facility] ([id number])[address] [place] [address]WIW core Ab IA Qlon 72-65-3476EQYL HBcReactiveAbnormal NRCTProKindred Hospital LimaComment on above:Result Comment: NEW TEST METHOD Performed By: #### CBCA, CMP, 91307-6, 2777-1, TSHR, 3024-7, 5196-1, 5193-8, 4679-7, 41588-3 ####[facility] ([id number])[address] [place] [address]PRC surface Ab IA Qnon 15-99-3183Dhgk HBs quant.<3.00 NormalProKindred Hospital LimaComment on above:Result Comment: NOTEVaccinated: >=10.00 mIU/mL, Positive (Immune)Unvaccinated: <10.00 mIU/mL,Negative (Not Immune)Interpretive values have changed due to implementation of anew method. Values run higher than previous method.Performed By: #### CBCA, CMP, 11934-4, 2777-1, TSHR, 3024-7, 5196-1, 5193-8, 4679-7, 94744-7 ####[facility] ([id number])[address], [address], [place] [address]FMF surface Ag IA Qlon 13-71-8958WVSGEEDTS B SURF AGNon-ReactiveNormalNRCTProDoctors Hospital HospitalComment on above:Result Comment: NEW TEST METHODPerformed By: #### CBCA, CMP, 36862-3, 2776-, TSHR, 3024-7, 5196-1, 5193-8, 4679-7, 86844-7 ####[facility] ([id number])[address], [address] [place] [address]YXJlb 57-02-4270Lxyyuikeni (Bld) [Volume fraction]21.1 %Kfj76-13FnhWbevlj [place] HospitalComment on above:Performed By: #### PINR, HH, ELEC, , 2776-04 ####[facility] ([id number])[address], [address], [place] [address]Xgrbogrwfm (Bld) [Mass/Vol]6.9 g/dLCritically low11.7-15.5ProMedica Coolidge HospitalComment on above:Performed By: #### PINR, HH, ELEC, , 2776-04 ####[facility] ([id number])[address], [address] [place] [address]Cucbncsbzpb Nephelometry [Mass/Vol]on 44-98-5440LFHEIDZOBRY37 mg/dLNormal 32-228Pro[facility] Hospital HospitalComment on above:Performed By: #### FEPR, 2276-4, 01671-4, TSHR, 2284-8, 2-9, 3024-7, 2532-0 ####[facility] ([id number])[address], [address], [place] [address]VIVB PROFILEon 06-14-2024 Iron [Mass/Vol]118 ug/uWThhagk93-379BmaUrvyub [place] HospitalComment on above: Performed By: #### FEPR, 2276-4, 61259-2, TSHR, 2284-8, 2132-9, 3024-7, 2532-0 ####[facility] ([id number])[address], [address], [place] [address]JIXN BMTECOU123 ug/pNOdyhbd515-709AntYutfgn [place] HospitalComment on above:Performed By: #### FEPR, 2276-4, 34950-2, TSHR, 2284-8, 2-9, 3024-7, 2532-0 ####[facility] ([id number])[address], [address] [place] [address]JRSX RTYLZHRGAJ94 % NTPNUHVNULDatyjk73-95IemQmhqwh [place] HospitalComment on above:Performed By: #### FEPR, 2276-4, 73188-2, TSHR, 4-8, 2-9, 3024-7, 2532-0 ####[facility] ([id number])[address] [place] [address]AZN [Catalytic activity/Vol]on 83-52-8556VXQ 127 U/RZqqdrl574-780WvvUetzia [place] HospitalComment on above:Performed By: #### FEPR, 2276-4, 79166-1, TSHR, 2284-8, 2-9, 3024-7, 2532-0 ####[facility] ([id number])[address] [place] [address]MZMVY PANELon 12-24-3243Hpacepn [Mass/Vol]3.2 g/dLLow3.4-5.3ProMedOhioHealth Riverside Methodist Hospital HospitalComment on above:Performed By: #### BMP, LIVR ####[facility] ([id number])[address], [address] [place] [address]Vznygqdhq By: #### C3Caroline, SIFE, SPE, 60280-5, 30743-9 ####[facility] ([id number])[address], [address], [place] [address]DKS [Catalytic activity/Vol]110 U/LNormal 39-130ProMedica Lynn HospitalComment on above:Performed By: #### BMP, LIVR ####[facility] ([id number])[address], [address], [place] [address]YFW [Catalytic activity/Vol]4 U/LNormal0-31ProMedOhioHealth Riverside Methodist Hospital HospitalComment on above:Performed By: #### BMP, LIVR ####[facility] ([id number])[address], [address], [place] [address]KMU [Catalytic activity/Vol]12 U/LNormal0-41ProGreene Memorial Hospitalca Coolidge HospitalComment on above:Performed By: #### BMP, LIVR ####[facility] ([id number])[address], [address], [place] [address]Upogtjzsw [Mass/Vol]0.8 mg/dLNormal0.3-1.2PMercy Health Clermont Hospital HospitalComment on above:Performed By: #### BMP, LIVR ####[facility] ([id number])[address], [address], [place] [address] Bilirubin.direct [Mass/Vol]0.4 mg/dLNormal0.0-0.4Pro[facility] Hospital Comment on above:Performed By: #### BMP, LIVR ####[facility] ([id number])[address], [address], [place] [address]Lefgbpw [Mass/Vol]5.7 g/dL Low6.0-8.0Pro[facility] HospitalComment on above:Performed By: #### BMP, LIVR ####[facility] ([id number])[address], [address], [place] [address]VEGHN RESPIRATORY CULTUREon 22-40-8597Cxzfnmzk identified Respiratory culture Nom (Sput)GRAM STAIN 0 WHITE BLOOD CELLS/LPF 0 SQUAMOUS EPITHELIAL CELLS/LPF 0 CILIATED EPITHELIAL CELLS/LPF NO ORGANISMS SEEN CULTURE RESULTS NORMAL ORAL FLORANormalProGreene Memorial Hospitalca Coolidge HospitalComment on above:Performed By: #### 624-7 ####[facility] ([id number])[address], [address] [place] [address]KGIAGZOUCmq 95-13-9142Jllzuhlyv [Mass/Vol]2.1 mg/dLNormal 1.8-2.6Pro[facility] HospitalComment on above:Performed By: #### ELEC, , 2776-04 ####[facility] ([id number])[address], [address] [place] [address]Tppzbffxt [Mass/Vol]1.7 mg/dLLow1.8-2.6Pro[facility] HospitalComment on above:Performed By: #### PINR, HH, ELEC, , 2776-04 ####[facility] ([id number])[address] [address] [place] [address]Gpdqxwpba [Mass/Vol]3.5 mg/dLHigh1.8-2.6Pro[facility] HospitalComment on above:Performed By: #### CBCA, CMP, , 2776-04, TSHR, 3024-7, 5196-1, 5193-8, 4679-7, 58718-7 ####[facility] ([id number])[address], [address] [place] [address]Mvwwljclb Ionized ISE (Bld) [Moles/Vol]on 25-65-4207Nzdyaevtq [Moles/Vol]0.54 mmol/LNormal0.45-0.74Pro[facility] HospitalComment on above:Result Comment: NEW REFERENCE RANGEPerformed By: #### 92651-9 ####[facility] ([id number])[address], [address], [place] [address]Ukvnnvboxr cytoplasmic Ab panel IF (S)on 05-57-1242l-ANCA NegativeNormalNegativeProGreene Memorial Hospitalca [facility] County HospitalComment on above:Performed By: #### C34, SIFE, SPE, 33479-6, 81279-1 ####[facility] ([id number])[address], [address] [place] [address] 72232u-IHNTQkhlxqjeHrkrnb NegativeProKindred Hospital LimaComment on above:Result Comment: NOTENegative for cANCA and pANCA patterns by immunofluorescence. ADDITIONAL INFORMATION This test was developed and its performance characteristicsdetermined by [facility] in a manner consistent with CLIArequirements. This test has not been cleared or approved bythe U.S. Food and Drug Administration.Test Performed by:[address] Director: Alan Boothe Ph.D.; CLIA# [id number] By: #### C34, SIFE, SPE, 51848-6, 61670-5 ####[facility] ([id number])[address] [address]Wgsijha Ab [place] Ql (S)on 10-07-0336CPD Screen w/reflexNegative NormalNEGProKindred Hospital LimaCommclaren bay special care hospital on above:Result Comment: Testing performed using multiplex flowimmunoassay. Eleven different antigensassociated with systemic autoimmunediseases (dsDNA,Sm,Sm/AIRCRAFT NAVIGATOR,AIRCRAFT NAVIGATOR,Chromatin,SSA,SSB,Keesha- 1,Scl70,Ribo P,Centromere B)are included in this screening test.Performed By: #### C34, SIFE, SPE, 63367-5, 18280-0 ####[facility] ([id number])[address] [facility], [address] [place] [address]IRDBSAEDHHjk 06-14-2024 Phosphate [Mass/Vol]5.1 mg/dLHigh2.4-4.9ProGreene Memorial Hospitalca [facility] HospitalComment on above:Performed By: #### ELEC, , 2776-04 ####[facility] ([id number])[address], [address] [place] [address]Kdbgljmlp [Mass/Vol]6.2 mg/dLHigh2.4-4.9Pro[facility]ica [facility] HospitalComment on above:Performed By: #### PINR, HH, ELEC, , 2776-04 ####[facility] ([id number])[address], [address] [place] [address]Frtrbqaja [Mass/Vol]7.0 mg/dLHigh2.4-4.9[facility] HospitalComment on above:Performed By: #### CBCA, CMP, , 2776-04, TSHR, 3024-7, 5196-1, 5193-8, 4679-7, 61681-2 ####[facility] ([id number])[address] [address] [place] [address]HRLBPWV CREAT RATIOon 56-49-7681RPKDQH URINE MGSVTJL814 mg/LHigh<120 [facility] HospitalComment on above:Performed By: #### UA, UPCR ####[facility] ([id number])[address] [address] [place] [address] U/PRO/CLASSIFICATION AND TREATMENT DIRECTOR RATIO CALC2.20High<0.2Pro[facility] HospitalComment on above:Result Comment: Nephrotic Syndrome is associated with ratios >3.5Performed By: #### UA, UPCR ####[facility] ([id number])[address], [address] [place] [address]CCONX CREATININE,RDM39.08 mg/dLNormalProGreene Memorial Hospitalca [facility] HospitalComment on above:Performed By: #### UA, UPCR ####[facility] ([id number])[address] [address], [place] [address]IYRFHEB AND INR on 47-40-7468OV Coag (PPP) [Time]17.0 sHigh9.8-13.2[facility] Comment on above:Performed By: #### PINR, 99841-4 ####[facility] ([id number])[address], [place] [address]CIQ Coag (PPP) [Relative time]1.5 {INR}High0.9-1.2PCleveland Clinic Euclid HospitalComment on above:Performed By: #### PINR, 96879-2 ####[facility] ([id number])[address] [address]Qktkvhfat By: #### PINR, HH, ELEC, , 2777-1 ####[facility] ([id number])[address] [address], [place] [address]MI Coag (PPP) [Time]16.7 sHigh9.8-13.2PC[facility] HospitalComment on above:Performed By: #### PINR, HH, ELEC, , 2776-1 ####[facility] ([id number])[address] [address]Cdemxxpaqyz review Pathologist comment (Bld) [Interp]on 26-22-1458NTNZX REVIEWNOTENormalProMedica Van Wert County HospitalComment on above:Result Comment: [facility] [address] [address] Clinical Pathology ReportPatient Name:ORESTES ALVARES:1965 (Age:59)Gender:FTaken:06/14/2024Reported:06/19/2024Physician(s):Vernell Tracey To: Rec. #:[id number]:#[id number] Pathologic DiagnosisPeripheral smear review:- Marked macrocytic anemia [...] ically Signed Outduvall/06/19/2024Jamar Hammond MDInterpretation performed at [facility], [address] [place] [address], License number: [id number].Clinical History___BLOOD SMEAR EVALUATIONCBC (06/14/2024 0245): WBC: 4.8 [...] forms and noclumpsSpecimen(s) ReceivedBlood Smear ReviewFee Codes(s):1; [address]Cdrvhjxnghmmg/100 RBC (Bld)on 85-57-2604AZTNCLZZFMIX COUNT2.2 %Normal0.4-2.2[facility] HospitalComment on above:Performed By: #### CBCA, CMP, 35809-1, 2777-1, TSHR, 3024-7, 5196-1, 5193-8, 4679-7, 08857-4 ####[facility] ([id number])[address], [address] [place] [address]MIEID IMMUNOFIXATIONon 99-19-4844ZzA [Mass/Vol]568 mg/qOHovx28-761BepXqvfjx Lynn HospitalComment on above:Performed By: #### C34, SIFE, SPE, 12154-3, 10524-4 ####[facility] ([id number])[address], [address] [place] [address]CeO [Mass/Vol]1039 mg/dL Vrcoqc613-6669PunZlsaah Lynn HospitalComment on above:Performed By: #### C34, SIFE, SPE, 55312-9, 86244-8 ####[facility] ([id number])[address], [address] [place] [address]NaP [Mass/Vol]162 mg/nIGxlrmo00-712DljOgyyia Lynn HospitalComment on above:Performed By: #### C34, SIFE, SPE, 37886-5, 15337-3 ####[facility] ([id number])[address], [address] [place] [address]IWOGMH PROFILE INTERPSEE SEPARATE REPORTNormalProMedica Lynn HospitalComment on above:Performed By: #### C34, SIFE, SPE, 80283-4, 29967-0 ####[facility] ([id number])[address], [address] [place] [address] 53[address]FOHBL PROTEIN ELECTROPHORESISon 91-77-0364MSYEV 1 GLOBULIN0.4 g/dLNormal0.1-0.4Pro[facility] HospitalComment on above:Performed By: #### C34, SIFE, SPE, 03417-9, 12197-6 ####[facility] ([id number])[address], [address] [place] [address] 52385QPVFZ 2 GLOBULIN0.5 g/dL Normal0.4-1.1Pro[facility] HospitalComment on above:Performed By: #### C34, SIFE, SPE, 33602-2, 01729-6 ####[facility] ([id number])[address], [address] [place] [address] 09254QBFP GLOBULIN0.9 g/dLNormal0.5-1.2ProMedOhioHealth [facility]ide Methodist Hospital HospitalComment on above:Performed By: #### Anjum, SIFE, SPE, 42561-2, 68591-0 ####[facility] ([id number])[address], [address], [place] [address]TSYDX GLOBULIN1.0 g/dLNormal0.5-1.6Pro[facility] Hospital Comment on above:Performed By: #### Anjum, SIFE, SPE, 75416-7, 08098-7 ####[facility] ([id number])[address], [address] [place] [address] 695[address]GFDF. ELECTROPHORESIS INTERPSEE SEPARATE REPORTNormalProGreene Memorial Hospitalca [facility] HospitalComment on above:Performed By: #### Anjum, SIFE, SPE, 29072-4, 89227-1 ####[facility] ([id number])[address], [address] [place] [address] Protein [Mass/Vol]6.0 g/dLNormal6.0-8.0ProGreene Memorial Hospitalca [facility] HospitalComment on above:Performed By: #### C34, SIFE, SPE, 90176-5, 12567-8 ####[facility] ([id number])[address], [address] [place] [address] 277[address]UPR WITH REFLEX on 78-33-4943KNM06.30 uIU/mLHigh0.49-4.67Pro[facility] HospitalComment on above:Performed By: #### FEPR, 2276-4, 62412-2, TSHR, 2284-8, 2132-9, 3024-7, 2532-0 ####[facility] ([id number])[address], [address] [place] [address] 46[address]NRQ87.51 uIU/mLHigh0.49-4.67[facility] HospitalComment on above:Performed By: #### CBCA, CMP, 38211-5, 2777-1, TSHR, 3024-7, 5196-1, 5193-8, 4679-7, 17625-4 ####[facility] ([id number])[address], [address] [place] [address] 83810NEKYFNMITGtl 36-39-7046Ecahgptwd Ql (U) NegativeNormalNEGProMedica Coolidge HospitalComment on above:Performed By: #### SHANITA, UPCR ####[facility] ([id number])[address], [address] [place] [address]YYPUD/HGBLargeAbnormalNEGProGreene Memorial Hospitalca [facility] HospitalComment on above:Performed By: #### UA, UPCR ####[facility] ([id number])[address], [address] [place] [address] 57369Scpgd (U)YELLOWNormalYELLOW [facility] HospitalComment on above:Performed By: #### UA, UPCR ####[facility] ([id number])[address], [address] [place] [address] Glucose Ql (U)NegativeNormalNEGProGreene Memorial Hospitalca [facility] HospitalComment on above: Performed By: #### UA, UPCR ####[facility] ([id number])[address], [address] [place] [address], [place] [address]Yinjiml casts LM Ql (Urine sed)10 /lpfHigh 0-2[facility] HospitalComment on above:Performed By: #### UA, UPCR ####[facility] ([id number])[address], [address] [place] [address], [place] [address]Tokimku Ql (U)NegativeNormalNEGProMedica Lynn HospitalComment on above: Performed By: #### SHANITA, UPCR ####[facility] ([id number])[address], [address] [place] [address] 455[address]Gukfjdvln esterase Test strip Ql (U)Large AbnormalNEGProMedica Coolidge HospitalComment on above:Performed By: #### SHANITA, UPCR ####[facility] ([id number])[address], [address], [place] [address]FQHCVSBCQUKLWUcbqwlmoZEQFBkdVjgfaq [facility] HospitalComment on above: Performed By: #### SHANITA, UPCR ####[facility] ([id number])[address], [address] [place] [address]Svxcmmw Ql (U)NegativeNormalNEGProMedica Coolidge HospitalComment on above:Performed By: #### SHANITA, UPCR ####[facility] ([id number])[address], [address], [place] [address]lE (U)5.5 [pH] Normal5.0-8.5ProMedica Coolidge HospitalComment on above:Performed By: #### SHANITA, UPCR ####[facility] ([id number])[address], [address], [place] [address]Pqhkacg Ql (U)50 mg/dLAbnormalNEGProMedica Coolidge HospitalComment on above:Performed By: #### SHANITA, UPCR ####[facility] ([id number])[address], [address], [place] [address]Z.B.HVBJJ224 /hpfHigh0-5 [facility]idge HospitalComment on above:Performed By: #### SHANITA, UPCR ####[facility] ([id number])[address], [address], [place] [address] Specific gravity (U) [Rel density]1.637Ovzedj0.003-1.035ProMedica Lynn HospitalComment on above:Performed By: #### UA, UPCR ####[facility] ([id number])[address], [address] [place] [address]XSWULDZP EPITHELIUM2 /hpfNormal0-5ProMedOhio[facility] HospitalComment on above:Performed By: #### UA, UPCR ####[facility] ([id number])[address], [address] [place] [address]CBYHVQYSQDBQ EPITH<4Ufxs3EppVkszbj [facility] HospitalComment on above:Performed By: #### UA, UPCR ####[facility] ([id number])[address], [address] [place] [address]74[address]GTGKBQELVZKRZNdrqywtrIHMIN [facility] HospitalComment on above:Performed By: #### UA, UPCR ####[facility] ([id number])[address] [address] [place] [address] Urinalysis dipstick W Reflex Microscopic panel (U)URINE RECEIVED WITHOUT PRESERVATIVE-DELAYS IN TRANSPORT MAY AFFECT RESULTS.INTERPRET WITH CAUTION AND CLINICAL CORRELATION IS RECOMMENDED.NormalProDoctors Hospital HospitalComment on above:Performed By: #### UA, UPCR ####[facility] ([id number])[address] [address] [place] [address]Sogfosdxznly (U) [Mass/Vol] mg/dLNormal<1.1ProMedOhioHealth [facility] HospitalComment on above:Performed By: #### UA, UPCR ####[facility] ([id number])[address] [address] [place] [address]T.B.CELLS69 /hpfHigh0-5PMercy Health [facility]erm[facility] HospitalComment on above: Performed By: #### UA, UPCR ####[facility] ([id number])[address] [address] [place] [address] 71624AQZBQ CULTUREon 57-37-0951Eqvnkzvq identified Cx Nom (U)SPECIMEN NOTES URINE RECEIVED WITHOUT PRESERVATIVE CULTURE RESULTS NO GROWTH AT <1000 CFU/mLNormalProMedica Lynn HospitalComment on above: Performed By: #### 630-4 ####[facility] ([id number])[address], [address], [place] [address]WMKUL PROTEIN ELECTROPHORESISon 06-14-2024 UPREL INTERPSEE SEPARATE REPORTNormalProMedica Lynn HospitalUS RETROPERITONEAL COMPLETEon 15-71-2027CB RETROPERITONEAL COMPLETENormalProMedica [facility] VENOUS BLOOD GASon 72-55-7173FRGUA'S TESTNormalProMedica Lynn HospitalComment on above:Performed By: #### VBG ####[facility] ([id number])[address] [place], [place] [address]CVBN,DEFICIT9.0 MMOL/LHigh0.0-2.0ProMedica Lynn HospitalComment on above:Performed By: #### VBG ####[facility] ([id number])[address] [place], [place] [address]Gvie jbvxvpjxzdy87.6 [degF]Normal 37.0ProMedica Lynn HospitalComment on above:Performed By: #### VBG ####[facility] ([id number])[address] [place], [place] [address]XAS3 (Bld) [Moles/Vol]19.9 mmol/LLow20.0-24.0ProMedica Lynn HospitalComment on above: Performed By: #### VBG ####[facility] ([id number])[address] [place], [place] [address]BFTN. O2 CONC.100 %NormalProMedica Lynn HospitalComment on above:Performed By: #### VBG ####[facility] ([id number])[address] [place], [place] [address]Wfknpl saturation in Blood91.0 %Normal>80.0ProMedica Lynn HospitalComment on above:Performed By: #### VBG ####[facility] ([id number])[address] [place], [place] [address]IXRIXV SOURCEVentNormal ProMedica Lynn HospitalComment on above:Performed By: #### VBG ####[facility] ([id number])[address] [place], [place] [address]PHS3, VENOUS 56.6 TEAEElap12-20CklPcgvxc Lynn HospitalComment on above:Performed By: #### VBG ####[facility] ([id number])[address] [place] [address] PH, VENOUS7.637Siw0.320-7.420ProMedica Coolidge HospitalComment on above:Performed By: #### VBG ####[facility] ([id number])[address] [place], [place] [address]LS3, QHKNTE85 HTSMQavh83-19UleQlubhh Lynn HospitalComment on above:Performed By: #### VBG ####[facility] ([id number])[address] [place], [place] [address]BRWMHE SITEN/ANormalProMedica Lynn HospitalComment on above:Performed By: #### VBG ####[facility] ([id number])[address] [place], [place] [address]JKPDIC TYPEVENOUSNormalProMedica Lynn Hospital Comment on above:Performed By: #### VBG ####[facility] ([id number])[address] [place], [place] [address]SWNBTVD B12on 33-81-5125Mcbqlynqx (Vitamin B12) [Mass/Vol]1093 pg/cXVnvc155-157NrcKfzvtc Lynn HospitalComment on above:Performed By: #### FEPR, 2276-4, 55815-6, TSHR, 2284-8, 2132-9, 3024-7, 2532-0 ####[facility] ([id number])[address], [address], [place] [address]EB CHEST 1 VWon 21-49-3352RJ CHEST 1 VWNormalProKindred Hospital LimaXR CHEST 1 [facility] CenteralProKindred Hospital LimaaPTT Coag (PPP) [Time]on 25-43-3144nLPB Coag (Bld) [Time]45 hUkua66-01KneSqapii [place] HospitalComment on above:Performed By: #### PINR, 71234-6 ####[facility] ([id number])[address], [place], [place] [address]PYHSZ CULTUREon 06-13-2024 Bacteria identified Aer cx Nom (Bld)NormalProKindred Hospital LimaComment on above:Performed By: #### 70069-7 ####[facility] ([id number])[address], [address] [place] [address]Ptspwypg identified Aer cx Nom (Bld)SPECIMEN NOTES SUBOPTIMAL VOLUME OF BLOOD COLLECTED, RESULTS MAY BE AFFECTED. CULTURE RESULTS NO GROWTH 5 DAYSNormalLima City HospitalComment on above:Performed By: #### 50965-2 ####[facility] ([id number])[address], [address] [place] [address] 12436TFR AND AUTO DIFFon 11-16-3567ATEDWYUO BASOPHIL0.0 X10E9/L Normal0.0-0.2ProMedOhioHealth [facility]ide Methodist Hospital HospitalComment on above:Performed By: #### CBCA, CMP, 95129-1, 2777-1, 34691-1, 39142-9, PINR, 63442-3 ####[facility] ([id number])[address], [address] [place] [address]YIZYSTKX NEUTROPHIL3.7 X10E9/LNormal1.5-6.6ProKindred Hospital LimaComment on above: Performed By: #### CBCA, CMP, 28219-6, 2777-1, 69266-6, 29553-5, PINR, 69234-5 ####[facility] ([id number])[address], [address], [place] [address]Rpnlwjdji/100 WBC (Bld)0.3 %NormalProDoctors Hospital HospitalComment on above:Performed By: #### CBCA, CMP, 03449-8, 2777-1, 31089-9, 25451-4, PINR, 37869-8 ####[facility] ([id number])[address] [address] [place] [address]Kwylbdcsojm (Bld) [#/Vol]0.0 10*3/uLNormal0.0-0.4ProKindred Hospital LimaComment on above:Performed By: #### CBCA, CMP, 68119-4, 2777-1, 12231-9, 95094-7, PINR, 44797-9 ####[facility] ([id number])[address] [address], [place] [address]Yupzjwloqcn/100 WBC (Bld) 0.2 %NormalProDoctors Hospital HospitalComment on above:Performed By: #### CBCA, CMP, 80794-9, 2777-1, 22685-0, 11543-5, PINR, 17679-6 ####[facility] ([id number])[address], [address] [place] [address]Cyvuudblgyp distribution width (RBC) [Ratio]16.8 %High11.5-15.0[facility] Comment on above:Performed By: #### CBCA, CMP, 36514-0, 2777-1, 25906-7, 04486- 0, PINR, 45630-8 ####[facility] ([id number])[address], [address] [place] [address] 22958Vliyqpfrua (Bld) [Volume fraction]24.9 %Xxr55-20 [facility]idge HospitalComment on above:Performed By: #### CBCA, CMP, 99049-5, 2777-1, 82428-7, 55933-9, PINR, 97116-9 ####[facility] ([id number])[address], [place] [address]Fkcpvwydjj (Bld) [Mass/Vol] 8.2 g/dLLow11.7-15.5ProMedOhioHealth Riverside Methodist Hospital HospitalComment on above:Performed By: #### CBCA, CMP, 30616-2, 2777-1, 85199-8, 05868-9, PINR, 33470-0 ####[facility] ([id number])[address], [address], [place] [address]Hqluiakbkrq (Bld) [#/Vol]0.4 10*3/uLLow1.0-3.5ProMedOhioHealth Riverside Methodist Hospital HospitalComment on above: Performed By: #### CBCA, CMP, 95320-7, 2777-1, 08654-4, 24926-4, PINR, 22768-8 ####[facility] ([id number])[address], [address], [place] [address]Eggrrsdstma/100 WBC (Bld)9.4 %NormalProDoctors Hospital HospitalComment on above:Performed By: #### CBCA, CMP, 54742-9, 2777-1, 58586-5, 34092-5, PINR, 36467-3 ####[facility] ([id number])[address], [address], [place] [address]EVO (RBC) [Entitic mass]33.0 xwHpaflu03-05AgfBeunry [place]edo HospitalComment on above:Performed By: #### CBCA, CMP, 89404-7, 2777-1, 55124-7, 32983-4, PINR, 38127-5 ####[facility] ([id number])[address], [address] [place] [address]AYHS (RBC) [Mass/Vol]32.8 g/kONcsgpl55-20 [facility] Lynn HospitalComment on above:Performed By: #### CBCA, CMP, 04497-3, 2777-1, 80313-5, 95684-4, PINR, 65925-9 ####[facility] ([id number])[address], [address] [place] [address]WEF (RBC) [Entitic vol]101 fTZrut31-818KypNbqovf Lynn HospitalComment on above:Performed By: #### CBCA, CMP, 27612-3, 2777-1, 01248-1, 93139-2, PINR, 26101-6 ####[facility] ([id number])[address], [address] [place] [address]Yyixejgei (Bld) [#/Vol]0.5 10*3/uLNormal0-0.9ProMedica Lynn HospitalComment on above:Performed By: #### CBCA, CMP, 25815-5, 2777-1, 96153-9, 07866-6, PINR, 97837-3 ####[facility] ([id number])[address], [address] [place] [address] Monocytes/100 WBC (Bld)10.9 %NormalProMedica Lynn HospitalComment on above: Performed By: #### CBCA, CMP, 86955-2, 2777-1, 58180-2, 85426-4, PINR, 34573-0 ####[facility] ([id number])[address], [address] [place] [address]Tzdauzesojv/100 WBC (Bld)79.2 %NormalProMedica Lynn HospitalComment on above:Performed By: #### CBCA, CMP, 51439-0, 2777-1, 74420-9, 09976-0, PINR, 37385-8 ####[facility] ([id number])[address], [address] [place] [address] 57138Nxbglpix mean volume (Bld) [Entitic vol]7.2 fLNormal7-12 [facility] HospitalComment on above:Performed By: #### CBCA, CMP, 41140-9, 2777-1, 42185-1, 32321-2, PINR, 70420-1 ####[facility] ([id number])[address], [address] [place] [address] 09240Ojwmjpcxb (Bld) [#/Vol]149 10*3/pTDim516-759PwjPyixry Coolidge HospitalComment on above:Performed By: #### CBCA, CMP, 13522-6, 2777-1, 73425-0, 48576-8, PINR, 63437-5 ####[facility] ([id number])[address], [address] [place] [address]OYN COUNT2.48 X10E12/LLow3.80-5.20ProGreene Memorial Hospitalca Coolidge HospitalComment on above:Performed By: #### CBCA, CMP, 08936-2, 2777-1, 75455-1, 44414-6, PINR, 34676-9 ####[facility] ([id number])[address], [address] [place] [address] 59[address]EBF (Bld) [#/Vol]4.7 10*3/uLNormal4.0-11.0Pro[facility]idge HospitalComment on above: Performed By: #### CBCA, CMP, 99628-9, 2777-1, 48354-1, 01307-4, PINR, 56239-7 ####[facility] ([id number])[address] [place] [address] 66125BWFSOCNMLCOLV METABOLIC PANELon 02-82-0110Gfntilk [Mass/Vol]3.4 g/dLNormal 3.2-5.3Pro[facility] Lynn HospitalComment on above:Performed By: #### CBCA, CMP, 80074-9, 2777-1, 15838-7, 09235-4, PINR, 23201-1 ####[facility] ([id number])[address], [address], [place] [address]TUJ [Catalytic activity/Vol]139 U/OLggw64-449YjpQthhch Lynn HospitalComment on above: Performed By: #### CBCA, CMP, 04748-6, 2777-1, 93817-4, 75433-8, PINR, 99539-6 ####[facility] ([id number])[address], [address], [place] [address]KRY [Catalytic activity/Vol]4 U/LNormal0-31ProMedbibb medical center Lynn HospitalComment on above:Performed By: #### CBCA, CMP, 81153-6, 2777-1, 73371-8, 49990-1, PINR, 69070-0 ####[facility] ([id number])[address], [address], [place] [address]Nlyuy gap [Moles/Vol]12 mmol/LNormal5-15Pro[facility] Lynn HospitalComment on above:Performed By: #### CBCA, CMP, 33065-3, 2777-1, 91011-3, 13632-0, PINR, 57365-6 ####[facility] ([id number])[address], [address], [place] [address]XLV [Catalytic activity/Vol]15 U/LNormal0-41 [facility] HospitalComment on above:Performed By: #### CBCA, CMP, 73584-6, 2777-1, 90341-6, 30674-8, PINR, 20799-2 ####[facility] ([id number])[address], [address], [place] [address]Ozymoopxb [Mass/Vol]0.9 mg/dLNormal0.3-1.2PMercy Health Clermont Hospital HospitalComment on above:Performed By: #### NAMITA, CMP, 90269-5, 2777-1, 25232-3, 86261-2, PINR, 20162-0 ####[facility] ([id number])[address], [address], [place] [address]Sidosxa [Mass/Vol]8.2 mg/dLLow8.5-10.5PCleveland Clinic Euclid HospitalComment on above: Performed By: #### NAMITA, CMP, 52418-4, 2777-1, 04936-3, 91594-3, PINR, 69432-3 ####[facility] ([id number])[address], [address], [place] [address]Zkhvjvwm [Moles/Vol]99 mmol/ASrqmrz94-139UnoXqnidy [place] HospitalComment on above:Performed By: #### NAMITA, CMP, 84564-8, 2777-1, 95662-9, 62338-2, PINR, 78777-0 ####[facility] ([id number])[address], [address], [place] [address]OL0 [Moles/Vol]20 mmol/ZPhn78-68DvxQnyzqz [place] [facility] Comment on above:Performed By: #### CBCA, CMP, 29221-8, 2777-1, 98255-2, 59365- 0, PINR, 88520-8 ####[facility] ([id number])[address], [address], [place] [address]Azptvnijpc [Mass/Vol]3.34 mg/dLHigh0.40-1.00ProKindred Hospital LimaComment on above:Result Comment: METHOD TRACEABLE TO IDMS STANDARDPerformed By: #### CBCA, CMP, 64244-5, 2777-1, 39394-5, 68731-1, PINR, 69325-8 ####[facility] ([id number])[address], [place] [address]GUO/1.73 sq M.predicted among non-blacks MDRD (S/P/Bld) [Vol rate/Area]15 mL/min/{1.73_m2}Low>59[facility] HospitalComment on above: Result Comment: Reported eGFR is based on theCKD-EPI 2020 equation that doesnot use a race coefficient.Performed By: #### RENA BREAUX, 67173-9, 2777-1, 67827-2, 02409-5, PINR, 60859-7 ####[facility] ([id number])[address], [address], [place] [address]Jnnyhec [Mass/Vol]85 mg/tGRkykgs14-61 [facility] HospitalComment on above:Performed By: #### RENA BREAUX, 80945-7, 2777-1, 78422-4, 17987-6, PINR, 02910-8 ####[facility] ([id number])[address] [address], [place] [address]Nxlpcdtnx [Moles/Vol]4.8 mmol/LNormal3.5-5.0Pro[facility] HospitalComment on above:Performed By: #### NAMITA, CMP, 22127-3, 2777-1, 04640-6, 98319-4, PINR, 57567-5 ####[facility] ([id number])[address], [address], [place] [address]Sumdmxz [Mass/Vol]6.3 g/dLNormal6.0-8.0ProKindred Hospital LimaComment on above: Performed By: #### CLARIBLEA, CMP, 68452-7, 2777-1, 84560-1, 03804-0, PINR, 89410-9 ####[facility] ([id number])[address], [address], [place] [address]Vtwotu [Moles/Vol]131 mmol/AGjf776-619MdzQcatyrKindred Hospital LimaComment on above:Performed By: #### CBCA, CMP, 14395-5, 2777-1, 28015-8, 52949-6, PINR, 13786-9 ####[facility] ([id number])[address], [address], [place] [address]Uvst nitrogen [Mass/Vol]43 mg/dLHigh5-27ProKindred Hospital LimaComment on above:Performed By: #### CBCA, CMP, 32504-3, 2777-1, 84541-1, 65336-0, PINR, 85160-7 ####[facility] ([id number])[address], [address] [place] [address]Pxdohoj Glucometer (BldC) [Mass/Vol]on 55-43-7635Hbciseo [Mass/Vol]88 mg/rOJoknsa19-56JbmLxoujoLima City Hospital Laboratory - Chemistry and Chemistry - challengeon 43-73-2384YNH2 (Bld) [Moles/Vol]19.8 mmol/LLow22.0-26.0[facility] Medical CenterAmmonia (P) [Moles/Vol]59 umol/LCritically emkl72-49IzfumhfbzSt. Mary'S Medical CenterComment on above:RESULTS CALLED TO efra brink rn @BY Delmi Quiles ua8636Tmxmwky [Catalytic activity/Vol]39 U/L62-659ZgzhjzuzySt. Mary'S Medical CenterLactate [Moles/Vol]1.1 mmol/L0.4-2.0[facility] Medical CenterLipase [Catalytic activity/Vol]36.0 U/L16.0-77.0St[facility] Medical CenterMagnesium [Mass/Vol]1.0 mg/dLLow1.8-2.4FUniversity Hospitals Geauga Medical CenterT4 [Mass/Vol]2.20 ug/dLLow4.80-13.90St. Mary'S Medical CenterTSH Qn13.271 m[IU]/LHigh 0.358-3.740St. [facility] CenterLaboratory - Microbiology and Antimicrobial susceptibilityon 55-06-3766WVFS-CoV-2 (COVID-19) RNA YVONNE+probe Ql (Unsp spec)NegativeNEGATIVESt. Mary'S Medical CenterComment on above: This test has not been [...] authorization is revoked sooner.Lactate (P mikey) [Moles/Vol]on 39-73-2970MWUCMHU W/REFLEX0.8 mmol/LNormal0.4-2.0[facility] Comment on above:Result Comment: Result did not trigger repeat Lactate,re-order if needed.Performed By: #### CBCA, CMP, 44892-0, 2777-1, 66553-6, 61235-2, PINR, 15759-1 ####[facility] ([id number])[address], [place] [address]EDPQMVROJbg 60-94-7713Ahemvwyqy [Mass/Vol]1.0 mg/dLLow1.8-2.6 [facility] HospitalComment on above:Performed By: #### CBCA, CMP, 61306-2, 2777-1, 41890-1, 22518-2, PINR, 60203-5 ####[facility] ([id number])[address], [place] [address]ZKWI PCR NASALon 06-13-2024 MRSA DNA YVONNE+probe Ql (Unsp spec)PositiveAbnormalNEGProKindred Hospital Lima Comment on above:Performed By: #### 89586-7 ####[facility] ([id number])[address] [facility], [address], [place] [address]Rlzogrtnury peptide B [Mass/Vol]on 04-69-2493Fxtxvjhslow peptide B (Bld) [Mass/Vol]1765 pg/mLHigh <100.0ProKindred Hospital LimaComment on above:Performed By: #### CBCA, CMP, 03772-7, 2777-1, 65049-2, 68888-6, PINR, 60836-6 ####[facility] ([id number])[address] [facility], [address] [place] [address]Cj Panel Informationon 50-48-5722Qgmqw TestPositivePOSITIVESt. Mary'S Medical CenterArterial Blood Base Excess-8.6 mmol/LLow<2.0-2.0St. [facility]S Medical CenterArterial Blood Oxygen Efgqfihpcc01.5 %St. [facility]'S Medical CenterArterial Blood Partial Pressure CO253.0 mm[Hg]Critically high35.0-45.0St. Mary'S Medical CenterComment on above:RESULTS CALLED TO BING PACHECORNArterial Blood Partial Pressure O2120.0 mm[Hg]High80.0-100.0[facility] Arterial Blood pH7.181Critically low7.350-7.450[facility] Comment on above:RESULTS CALLED TO BING PACHECORNBlood Gas Mode BiPAP16/8 [facility] Medical CenterBlood Gas Sample SiteRRSt. Mary'S Medical CenterBlood Gas Set Respiration Bgtj98SljerkuakSt. Mary'S Medical Center Blood Gas Tidal Oihtdf527JlgnjpuhdSt. Mary'S Medical CenterBlood Gas Ventilator ModeSTSt. Mary'S Medical CenterFiO235 %[facility] Oxygen Delivery DeviceBIPAPSt. Mary'S Medical CenterReference Lab Test #2 Result9.3FUniversity Hospitals Geauga Medical CenterTroponin I High Ttoehjzvbhp15.0 pg/mLCritically high4.0-51.3FUniversity Hospitals Geauga Medical CenterComment on above: RESULTS CALLED TO EFRA BRINKRNCUT-OFF [...] OTHER DIAGNOSTIC AND CLINICAL INFORMATION.Blood Gas Liter Fsdd7EbaulbdhlSt. Mary'S Medical CenterVenous Blood Partial Pressure CO251.2 mm[Hg]40.0-52.0 [facility]S Medical CenterVenous Blood pH7.775Eqi2.330-7.430St. [facility]'S Medical CenterBedside Influenza Type A AntigenNegativeSt. Mary'S Medical CenterComment on above:Negative for Flu A protein antigen. Infection due to Flu Acannot be ruled out. Flu A antigen in thesample may bebelow the detection limit of the test.Bedside Influenza Type B AntigenNegative St. [facility]S Medical CenterComment on above:Negative for Flu B protein antigen. Infection due to Flu Bcannot be ruled out. Flu B antigen in thesample may bebelow the detection limit of the test.RSV RNA Qual (PCR)([facility] [place])Not detected NOT DETECTMercy HospitalPHOSPHORUSon 66-75-8295Lhvhxsszd [Mass/Vol]6.8 mg/dLHigh2.4-4.9ProGreene Memorial Hospitalca [facility] HospitalComment on above: Performed By: #### CBCA, CMP, 75942-6, 2777-1, 09341-3, 05697-0, PINR, 38632-9 ####[facility] ([id number])[address] [facility], [place] [address]BFPHNNT AND INRon 28-93-3942PDF Coag (PPP) [Relative time]1.4 {INR}High 0.9-1.2[facility] HospitalComment on above:Performed By: #### CBCA, CMP, 86897-8, 2777-1, 27595-2, 84533-7, PINR, 21627-6 ####[facility] ([id number])[address], [address] [place] [address]RD Coag (PPP) [Time] 16.3 sHigh9.8-13.2[facility] HospitalComment on above:Performed By: #### CBCA, CMP, 70785-4, 2777-1, 53215-9, 83864-1, PINR, 81078-0 ####[facility] ([id number])[address] [address] [place] [address]Cbivmzzfixoub IA [Mass/Vol]on 24-69-3378VHHBJKQGREVZZ4.22 ng/mLHigh<0.05L[facility] City HospitalComment on above:Result Comment: NOTE<0.50 ng/mL - Low risk of severe sepsis and/or septic shock.<2.00 ng/mL -Recommend retesting within 6-24 hours.>2.00 ng/mL - High risk of sepsis and/or septic shock.Performed By: #### CBCA, CMP, 98192-1, 2777-1, 51909-9, 19756-8, PINR, 82494-3 ####[facility] ([id number])[address] [address] [place] [address] 35353ZRGX PATHOGENS/QJQS-OaP-3mo 09-24-4151Dihhipajprr pathogens DNA and RNA panel YVONNE+non-probe (Nph)NormalProKindred Hospital LimaComment on above:Performed By: #### 01999-7 ####[facility] ([id number])[address] [address] [place] [address]33[address]Dkwhmsih I.cardiac High sensitivity method [Mass/Vol]on HOUR TROP I, HIGH UGRTRSIOVTY41 ng/LHigh<16ProKindred Hospital [facility] Comment on above:Result Comment: Elevations of hs-Troponin may be due to causesother than myocardial ischemia.Recommend serial hs-Troponin testing be performed.For the initial evaluation and management of chestpain patients, refer to the algorithms linked below.Emergency Patient:[email or web address]:[email or web address] By: #### 63156-6 ####[facility] ([id number])[address], [address] [place] [address] TROPONIN I, HIGH AXVBWJLIHYL85 ng/LHigh<16ProKindred Hospital LimaComment on above:Result Comment: Elevations of hs-Troponin may be due to causesother than myocardial ischemia.Recommend serial hs-Troponin testing be performed.For the initial evaluation and management of chestpain patients, refer to the algorithms linked below.Emergency Patient:[email or web address]=[email or web address]=acaeaInpatient:[email or web address] r=[id number]&f=88766&uh=acaeaPerformed By: #### [id number] ####[facility] ([id number])[address], [address] [place] [address] VENOUS BLOOD GASon 90-92-4215NJQBK'S TESTNormalProGreene Memorial Hospitalca [facility] County HospitalComment on above:Performed By: #### VBG ####[facility] ([id number])[address] [place], [place] [address]YZME,DEFICIT8.0 MMOL/LHigh0.0-2.0ProKindred Hospital LimaComment on above:Performed By: #### VBG ####[facility] ([id number])[address] [place], [place] [address]Losb auhwkmbvzfv65.6 [degF]Normal 37.0ProMedica Lynn HospitalComment on above:Performed By: #### VBG ####[facility] ([id number])[address] [place], [place] [address]NCX6 (Bld) [Moles/Vol]21.2 mmol/MXfhnaa53.0-24.0ProMedica Lynn HospitalComment on above: Performed By: #### VBG ####[facility] ([address] [place] [address] [place], [place] [address]NWLW. O2 CONC.40 %NormalProMedica Coolidge HospitalComment on above:Performed By: #### VBG ####[facility] ([id number])[address] [place], [place] [address]Jazvni saturation in Blood62.0 %Low>80.0ProMedica Coolidge HospitalComment on above:Performed By: #### VBG ####[facility] ([address] [place] [address] [place], [place] [address]CGGOFC SOURCENCNormal [facility]Medica Coolidge HospitalComment on above:Performed By: #### VBG ####[facility] ([address] [place] [address])[address] [place], [place] [address]NQF6, VENOUS 62.5 IYTNWbdr49-36NuxQcjkpq Coolidge HospitalComment on above:Performed By: #### VBG ####[facility] ([id number])[address] [place] [address] PH, VENOUS7.606Kwo8.320-7.420ProMedica Coolidge HospitalComment on above:Performed By: #### VBG ####[facility] ([id number])[address] [facility] [place] [address]NY1, TOEVMR56 DBIHYqfhta78-20YabMqblnw [facility] Comment on above:Performed By: #### VBG ####[facility] ([id number])[address] [place], [place] [address]JPCCEL SITEN/ANormalProGreene Memorial Hospitalca [facility]idge HospitalComment on above:Performed By: #### VBG ####[facility] ([id number])[address] [place], [place] [address]OIBRKS TYPEVENOUSNormal ProMedica Coolidge HospitalComment on above:Performed By: #### VBG ####[facility] ([id number])[address] [place], [place] [address]RY CHEST 1 VWon 38-24-3144CX CHEST 1 VWNoalLima City HospitalBasophils Auto (Bld) [#/Vol]on 83-38-6325Ifjtlsscr (Bld) [#/Vol]Automated basophil count0.0-0.1 [facility] CenterBasophils/100 WBC Auto (Bld)on 06-12-2024 Basophils/100 WBC (Bld)Automated basophil %0.2-2.0[facility] CenterEosinophils/100 WBC Auto (Bld)on 55-21-8261Bhqkazdzduf/100 WBC (Bld) Automated eosinophil %Low0.9-7.0[facility] Medical CenterErythrocyte distribution width Auto (RBC) [Ratio]on 86-88-0726Zbznmytmfkx distribution width (RBC) [Ratio]Erythrocyte distribution width [Ratio] by Automated countHigh 11.0-15.0[facility] Medical CenterEstimated glomerular filtration rate (GFR) non- Americanon 15-07-7498KGJ/1.73 sq M.predicted among non-blacks MDRD (S/P/Bld) [Vol rate/Area]Estimated glomerular filtration rate (GFR) non- AmericanLow>=60 mL/min/1.73m 2FUniversity Hospitals Geauga Medical CenterGlobulin Calc (S) [Mass/Vol]on 64-01-6525Fgxzhohs (S) [Mass/Vol]Serum globulin measurement by calculation (mass/volume)[facility] Hematocrit Auto (Bld) [Volume fraction]on 61-33-9193Kopzsiodgx (Bld) [Volume fraction]Hematocrit [Volume Fraction] of Blood by Automated cickgHmc96.0-48.[address] [facility] CenterHemoglobin [Mass/volume] in Bloodon 06-12-2024 Hemoglobin (Bld) [Mass/Vol]Hemoglobin [Mass/volume] in MiyldVcy36.0-16.0 [facility] Medical CenterINR in Platelet poor plasma by Coagulation assayon 97-48-2672GIH Coag (PPP) [Relative time]INR in Platelet poor plasma by Coagulation assaySt. Mary'S Medical CenterComment on above:DESIRED INR:2.0-3.0 CONDITIONS NOT LISTED BELOW2.5-3.5 FOR PROSTHETIC HEART VALVE REPLACEMENT2.5-3.5 RECURRENT THROMBOSISLaboratory - Chemistry and Chemistry - challengeon 50-51-9296Ingyijb [Mass/Vol]2.7 g/dLLow3.4-5.0[facility] CenterALP [Catalytic activity/Vol]170 U/JXbim27-311BsrdrgvflSt. Mary'S Medical CenterALT [Catalytic activity/Vol]11 U/RDel68-72NxgkavsplSt. Mary'S Medical CenterAST [Catalytic activity/Vol]20 U/P67-13VxbcllkhgSt. Mary'S Medical CenterBilirubin [Mass/Vol]0.6 mg/dL0.2-1.0[facility] Calcium [Mass/Vol]8.2 mg/dLLow8.5-10.1FUniversity Hospitals Geauga Medical CenterChloride [Moles/Vol]96 mmol/IKvi22-366BitbntogdSt. Mary'S Medical CenterCO2 [Moles/Vol] 18.4 mmol/LLow21.0-32.0[facility] CenterCreatinine [Mass/Vol] 3.36 mg/dLHigh0.55-1.02[facility] CenterGFR/1.73 sq M.predicted MDRD (S/P/Bld) [Vol rate/Area]17 mL/min/{1.73_m2}Low>=60 mL/min/1.73m 2FUniversity Hospitals Geauga Medical CenterGlucose [Mass/Vol]68 mg/vMNri08-126WwgmsggrmSt. Mary'S Medical CenterLactate [Moles/Vol]2.4 mmol/LCritically high0.4-2.0[facility] CenterComment on above:RESULTS CALLED TO DAYSI SOTO RN at 2014Natriuretic peptide B (Bld) [Mass/Vol]pg/mLCritically high<=900.0St. [facility] Medical CenterComment on above:RESULTS CALLED TO PAULINA SYED NP at otassium [Moles/Vol]4.8 mmol/L3.5-5.1FUniversity Hospitals Geauga Medical Center Protein [Mass/Vol]6.9 g/dL6.4-8.2FOhioHealth Hardin Memorial Hospitalodium [Moles/Vol]128 mmol/IHym226-984BouowliheSt. Mary'S Medical CenterUrea nitrogen [Mass/Vol]39.0 mg/dLHigh7.0-18.0[facility] CenterUrea nitrogen/Creatinine [Mass ratio]11.6 mg/mgSt. Mary'S Medical Center Bilirubin Ql (U)NegativeNEGSelect Medical TriHealth Rehabilitation HospitalGlucose (U) [Mass/Vol]NegativeNEGATIVESt. Mary'S Medical CenterKetones Ql (U) NegativeNEGSelect Medical TriHealth Rehabilitation HospitalpH (U)5.5 [pH]5.0-9.0[facility] Barber[facility] Campuspecific gravity (U) [Rel density]1.0251.005-1.025 [facility] Medical CenterUrobilinogen Qn (U)0.2 {Pascale'U}/dL0.2-1.0 [facility] CenterLaboratory - Hematology and Cell countson 68-57-6256Szohghnz granulocytes/100 WBC (Bld)1.1 %High0.0-0.5FUniversity Hospitals Geauga Medical CenterLaboratory - Specimen informationon 03-92-9106Huakhdwppv (U)SL CLOUDYCLEARFUniversity Hospitals Geauga Medical CenterColor (U)YELLOWYELLOWSt. Mary'S Medical CenterLaboratory - Urinalysison 01-77-3220Kycnkvjtd esterase Test strip Ql (U)NegativeNEGSelect Medical TriHealth Rehabilitation HospitalMucus Ql (Urine sed)NONE SEENNONE SEENSt. Mary'S Medical CenterNitrite Ql (U) NegativeNEGSelect Medical TriHealth Rehabilitation HospitalProtein Ql (U)>=300 mg/dL AbnormalNEG/TRACESt. Mary'S Medical CenterLeukocytes [#/volume] corrected for nucleated erythrocytes in Blood by Automated counon 98-28-2957XNN corrected for nucl RBC Auto (Bld) [#/Vol]Leukocytes [#/volume] corrected for nucleated erythrocytes in Blood by Automated coun4.0-11.0St. [facility] Medical CenterLymphocytes Auto (Bld) [#/Vol]on 69-55-5189Fassexxhwqc (Bld) [#/Vol]Lymphocytes [#/volume] in Blood by Automated countLow1.2-3.8St. [facility] CenterLymphocytes/100 WBC Auto (Bld)on 06-12-2024 Lymphocytes/100 WBC (Bld)Lymphocytes/100 leukocytes in Blood by Automated count Low20.5-60.0[facility] HospitalH Auto (RBC) [Entitic mass]on 82-94-9607KKW (RBC) [Entitic mass]MCH [Entitic mass] by Automated count26.7-34.0 [facility] Medical CenterMCHC Auto (RBC) [Mass/Vol]on 85-79-2608TGGF (RBC) [Mass/Vol]MCHC [Mass/volume] by Automated count29.9-35.2FUniversity Hospitals Geauga Medical CenterMCV Auto (RBC) [Entitic vol]on 31-72-8708ZXN (RBC) [Entitic vol] MCV [Entitic volume] by Automated cyqgkKsqg83.0-99.0[facility] Medical CenterMonocytes Auto (Bld) [#/Vol]on 77-36-3892Ifbnhimgk (Bld) [#/Vol]Automated blood monocyte count0.3-0.8St[facility] CenterMonocytes/100 WBC Auto (Bld)on 22-64-2329Fuehzwjbt/100 WBC (Bld)Automated monocyte %1.7-12.0 [facility] Medical CenterNeutrophils Auto (Bld) [#/Vol]on 06-12-2024 Neutrophils (Bld) [#/Vol]Neutrophils [#/volume] in Blood by Automated count 1.4-6.5FUniversity Hospitals Geauga Medical CenterNeutrophils/100 WBC Auto (Bld)on 46-80-9561Fzdondzmapc/100 WBC (Bld)Automated neutrophil %High43.0-75.0[facility] CenterNo Panel Informationon 08-05-3394Zqtxs Alcohol Level33 mg/dLSt. Mary'S Medical CenterComment on above:NOTE: 80 mg/dl is the legal limit for a blood alcohol levelTroponin I High Mmongkwuftl72.7 pg/mL Critically high4.0-51.3FUniversity Hospitals Geauga Medical CenterComment on above:RESULTS CALLED TO PAULINA SYED NP [...] AND CLINICAL INFORMATION.Eosinophils # (Auto) 0.0 10 3/uL0.0-0.7FUniversity Hospitals Geauga Medical CenterImmature Granulocyte # (Auto) 0.06 10 3/uLHigh0.00-0.03St. [facility] Medical CenterUrine BacteriaMODERATE #/HPFAbnormalNONE [facility] GeneralUrine Microscopic Review YESSt. Mary'S Medical CenterUrine Occult BloodTRACE-INEGATIVESt. Mary'S Medical CenterUrine Other CastsNONE SEEN #/LPFNONE [facility] GeneralUrine Other CrystalsNone Seen #/HPFNone [facility] HospitalUrine RBC0-2 #/HPF0-2FUniversity Hospitals Geauga Medical Center Urine Squamous Epithelial CellsFEW #/LPFAbnormalNONE/RARESt. Mary'S Medical CenterUrine WBC2-5 #/HPFAbnormalNONE [facility] GeneralPlatelet mean volume Auto (Bld) [Entitic vol]on 14-25-5377Ktsgahhf mean volume (Bld) [Entitic vol]Platelet mean volume [Entitic volume] in Blood by Automated countLow9.5-13.5FUniversity Hospitals Geauga Medical CenterPlatelets Auto (Bld) [#/Vol]on 12-28-4644Aamrtvfmj (Bld) [#/Vol]Platelets [#/volume] in Blood by Automated -266JearixeijSt. Mary'S Medical CenterProthrombin time (PT)on 83-63-2601HK Coag (PPP) [Time]Prothrombin time (PT)High9.0-11.6FUniversity Hospitals Geauga Medical CenterRBC Auto (Bld) [#/Vol]on 04-71-5203USC (Bld) [#/Vol] Erythrocytes [#/volume] in Blood by Automated countLow4.20-5.40Sum[facility] Barberton Campuserum or plasma albumin/globulin mass ratioon 06-12-2024 Albumin/Globulin [Mass ratio]Serum or plasma albumin/globulin mass ratio [facility] Campuserum or plasma anion gap determinationon 87-54-0324Vceqo gap [Moles/Vol]Serum or plasma anion gap determinationSt. Mary'S Medical CenterUrine Cultureon 37-10-4265Uxufvuln identified Cx Nom (U) No Growth 2 Days PERFORMED BY: [place] [address] PATHOLOGIST JEWEL HOLE GAUGER SALLY RENNER M.D.NormalThe Cape [facility]oke Hospital Physician GroupComment on above: Performed By: #### CUU #### [place] [address] USAPathology study report documentOrdered By: Maury Schafer on 46-43-2590Hbjxcpwlq studySt. Mary'S Medical Center Other lon 02-19-2024 Specimen: [id number] Received: 02/20/24 Status: MARCELO Sanchez Num: [id number] Spec Type: Surgical Subm Dr: Cody Neves MD Tissues: A BREAST CORE NO CALCS (LEFT BREAST) Procedures: HE/4, Gross/Micro L4 Age/ Patient Sex Location Account Attending Physician Orestes Alvares 59/F [place] [id number] Katie Velasquez APRN, SPEC NUM: [id number] RECD: 02/20/24 STATUS: MARCELO SANCHEZ NUM: [id number] LYNDSEY: 02/19/24-[address] [facility] [address]: Cody Neves MD ENTERED: 02/20/[address]: Ghassan,Chinmay Velasquez APRN, [facility] SPEC TYPE: Surgical DEPT: JUANIS PERES ENTERED BY: [id number] RECV BY: [id number] ORDERED: HE/4, Gross/Micro L4 ORDERED: HE/4, Gross/Micro [...] Time specimen placed in formalin: 1506 Specimen: [id number] Received: 02/20/24 Status: MARCELO Sanchez Num: [id number] Spec Type: Surgical Subm Dr: Cody Neves MD Tissues: A BREAST CORE NO CALCS (LEFT BREAST) Procedures: /Caroline, Gross/Micro L4 Patient: Orestes Alvares [id number] (Continued) Specimen: [id number] Received: 02/20/24 (Continued) Gross Description (Continued) Signed (signature on file) Maury Schafer MD 02/22/24 1036 Specimen: [id number] Received: 02/20/24 Status: MARCELO Sanchez Num: [id number] Spec Type: Surgical Subm Dr: Cody Neves MD Tissues: A BREAST CORE NO CALCS (LEFT BREAST) Procedures: /, Gross/Micro L4 Patient: Orestes Alvares [id number] (Continued) Specimen: [id number] Received: 02/20/24 (Continued) Gross Description (Continued) Cold ischemic time: 2 minutes Total fixation time: 26 hours and 30 minutes (2, lio, IY91-082 A) Batool Microscopic Description Microscopic examination is performed. CPT Codes 73897 Specimen: [id number] Received: 02/20/24 Status: MARCELO Sanchez Num: [id number] Spec Type: Surgical Subm Dr: Cody Neves MD Tissues: A BREAST CORE NO CALCS (LEFT BREAST) Procedures: , Gross/Micro L4 Patient: Orestes Alvares [id number] (Continued) Signed (signature on file) Maury Schafer MD 02/22/24 1036Normal [facility] Physician GroupActivated partial thromboplastin time (aPTT) in platelet poor plasma by coagulation aOrdered By: Caden Jarrell on 69-95-0127uLCM Coag (PPP) [Time]30.8 s25.1-36.5FUniversity Hospitals Geauga Medical CenterBasophils Auto (Bld) [#/Vol]Ordered By: Caden Jarrell on 48-50-9676Grvdziqzd (Bld) [#/Vol]0.1 10*3/uL0.0-0.2FUniversity Hospitals Geauga Medical CenterBasophils/100 WBC Auto (Bld) Ordered By: Caden Jarrell on 78-20-6293Wwnwiuydi/100 WBC (Bld)0.9 %.[facility] Medical CenterCreatine kinase [Enzymatic activity/volume] in Serum or PlasmaOrdered By: Caden Jarrell on 11-98-2098NI [Catalytic activity/Vol]33 U/L 22-269St. [facility] Medical CenterCreatinine and Glomerular filtration rate.predicted panel (S/P/Bld)Ordered By: Caden Jarrell on 05-34-3962Exvldkztjx [Mass/Vol]1.34 mg/dL0.44-1.03St. [facility] Medical CenterEosinophils Auto (Bld) [#/Vol]Ordered By: Caden Jarrell on 96-42-9763Edljrwketxn (Bld) [#/Vol]0.0 10*3/uL0.0-0.45St. [facility] Medical CenterEosinophils/100 WBC Auto (Bld) Ordered By: Caden Jarrell on 36-25-9288Jspcppdcjrk/100 WBC (Bld)0.2 %.St[facility]S Medical CenterErythrocyte distribution width Auto (RBC) [Ratio]Ordered By: Caden Jarrell on 45-73-4913Lxunyohjoyd distribution width (RBC) [Ratio]13.6 % 11.9-15.3FUniversity Hospitals Geauga Medical CenterEstimated glomerular filtration rate (GFR) non- AmericanOrdered By: Caden Jarrell on 66-80-9565CXD/1.73 sq M.predicted among non-blacks MDRD (S/P/Bld) [Vol rate/Area]40 mL/MinSt. Mary'S Medical CenterHematocrit Auto (Bld) [Volume fraction]Ordered By: Caden Jarrell on 47-25-0618Cryhdosner (Bld) [Volume fraction]31.6 %34.0-46.4FUniversity Hospitals Geauga Medical CenterHemoglobin [Mass/volume] in BloodOrdered By: Caden Jarrell on 58-48-6433Vmpoaorsaf (Bld) [Mass/Vol]11.0 g/dL11.8-15.4FUniversity Hospitals Geauga Medical CenterLaboratory - Chemistry and Chemistry - challengeOrdered By: Caden Jarrell on 76-72-8694Lwjbqfpmfnk peptide B (Bld) [Mass/Vol]1767.0 pg/mL5-100 [facility] CenterLaboratory - CoagulationOrdered By: Caden Jarrell on 70-62-9932SZ Coag (PPP) [Time]13.2 s9.0-12.9St. [facility] Medical CenterLeukocytes [#/volume] corrected for nucleated erythrocytes in Blood by Automated counOrdered By: Caden Jarrell on 50-88-3517LJP corrected for nucl RBC Auto (Bld) [#/Vol]7.8 10*3/uL3.8-11.6FUniversity Hospitals Geauga Medical Center Lymphocytes Auto (Bld) [#/Vol]Ordered By: Caden Jarrell on 33-90-9233Gsmeuzbeebx (Bld) [#/Vol]0.8 10*3/uL1.00-4.8St. [facility] Medical CenterLymphocytes/100 WBC Auto (Bld)Ordered By: Caden Jarrell on 99-99-0014Twzeoqvcesd/100 WBC (Bld) 10.6 %.[facility] Auto (RBC) [Entitic mass]Ordered By: Caden Jarrell on 42-61-1574PXP (RBC) [Entitic mass]32.1 pg24.7-34.3FUniversity Hospitals Geauga Medical CenterMCHC Auto (RBC) [Mass/Vol]Ordered By: Caden Jarrell on 33-26-2758RHPM (RBC) [Mass/Vol]34.7 g/dL32.0-35.0[facility] CenterMCV Auto (RBC) [Entitic vol]Ordered By: Caden Jarrell on 04-58-9015MVB (RBC) [Entitic vol]92.3 nG92-923MdxqvlgrhSt. Mary'S Medical CenterMonocyte distribution width [Entitic volume] in Blood by AutomatedOrdered By: Caden Jarrell on 14-15-8980Ytkvhbfy distribution width Auto (Bld) [Entitic vol]19.45 %0.00-20.00 [facility] Medical CenterMonocytes Auto (Bld) [#/Vol]Ordered By: Caden Jarrell on 79-68-9328Wqnbrptqm (Bld) [#/Vol]0.8 10*3/uL0.0-0.8St. [facility] Medical CenterMonocytes/100 WBC Auto (Bld)Ordered By: Caden Jarrell on 03-15-2022 Monocytes/100 WBC (Bld)10.2 %.[facility] Medical CenterNeutrophils Auto (Bld) [#/Vol]Ordered By: Caden Jarrell on 59-79-1099Vmkyklwkict (Bld) [#/Vol]6.1 10*3/uL1.8-7.7FUniversity Hospitals Geauga Medical CenterNeutrophils/100 WBC Auto (Bld) Ordered By: Caden Jarrell on 08-68-0516Ffcdqwqbdkx/100 WBC (Bld)78.1 %.[facility] Medical CenterNo Panel InformationOrdered By: Caden Jarrell on 03-15-2022 Estimated GFR ()49 mL/MinSt. Mary'S Medical Center Comment on above:GFR estimated reference range: According to KDOQI guidelines, <60 ml/min/1.73m2 is sufficient todiagnose a patient with chronic kidney disease.Pharmacy Creatinine Clearance (Chem43.20St[facility] Medical CenterNucleated erythrocytes [Presence] in Blood by Automated countOrdered By: Caden Jarrell on 74-60-0029Ehfvdjegc RBC Auto Ql (Bld)0.1 /100{WBC}0-0.5FUniversity Hospitals Geauga Medical CenterPlatelet mean volume Auto (Bld) [Entitic vol]Ordered By: Caden Jarrell on 98-31-6500Xvvdaeyt mean volume (Bld) [Entitic vol]7.1 fL6.3-10.7 [facility] Medical CenterPlatelet poor plasma international normalized ratio (INR) by coagulation assay (relatOrdered By: Caden Jarrell on 65-37-2253DAL Coag (PPP) [Relative time]1.2 {INR}[facility] Medical CenterComment on above:INR Therapeutic Range A) Pre- and [...] Caden Jarrell on 03-15-2022 Platelets (Bld) [#/Vol]277 10*3/pQ242-326WocskprhdSt. Mary'S Medical CenterRBC Auto (Bld) [#/Vol]Ordered By: Caden Jarrell on 81-20-6142IOD (Bld) [#/Vol]3.43 10*6/uL3.60-5.00[facility] Barber[facility] Campuserum or plasma anion gap determinationOrdered By: Caden Jarrell on 44-69-9698Gyonl gap [Moles/Vol]14.5 mmol/L6.0-15.0[facility] Barber[facility] Campuserum or plasma calcium measurement (mass/volume)Ordered By: Caden Jarrell on 41-14-6953Vrhunei [Mass/Vol] 9.3 mg/dL8.2-10.2FOhioHealth Hardin Memorial Hospitalerum or plasma chloride measurement (moles/volume)Ordered By: aCden Jarrell on 12-59-0962Pyzewcva [Moles/Vol]95 mmol/H59-583RhkzaolcxSumma Health Barberton Campuserum or plasma creatine kinase MB (CKMB)/total creatine kinase (CK) ratio by calculaOrdered By: Caden Jarrell on 85-14-4745PO.MB Calc [Catalytic fraction]5.1 %0.00-2.50[facility] Barber[facility] Campuserum or plasma creatine kinase MB measurement (mass/volume)Ordered By: Caden Jarrell on 04-72-3225CH.MB [Mass/Vol]1.7 ng/mL 0.6-6.3FOhioHealth Hardin Memorial Hospitalerum or plasma glucose measurement (mass/volume)Ordered By: Caden Jarrell on 97-75-2762Fxhqqly [Mass/Vol]129 mg/dL 70-100St. [facility]S Medical CenterComment on above:ADA recommended reference rangeRandom Glucose Reference Range is dependent on time and content of last meal. Glucose of more than 200 mg/dL in a nonstressed, ambulatory subject supports the diagnosisof Diabetes Mellitus.Serum or plasma potassium measurement (moles/volume)Ordered By: Caden Jarrell on 42-20-4219Drykbivbx [Moles/Vol]3.4 mmol/L3.5-5.1FOhioHealth Hardin Memorial Hospitalerum or plasma sodium measurement (moles/volume)Ordered By: Caden Jarrell on 17-69-5586Uytayk [Moles/Vol]129 mmol/P439-598VuasrjsbmSumma Health Barberton Campuserum or plasma total carbon dioxide measurement (moles/volume)Ordered By: Caden Jarrell on 13-54-9695XB9 [Moles/Vol]22.9 mmol/L22.0-30.0[facility] Serum or plasma urea nitrogen measurement (mass/volume)Ordered By: Caden Jarrell on 48-81-8470Edvd nitrogen [Mass/Vol]14 mg/dL9-23St. [facility]S Medical CenterTroponin I.cardiac [Mass/volume] in Serum or Plasma by High sensitivity methodOrdered By: Caden Jarrell on 93-31-2886Izcjqwwn I.cardiac High sensitivity method [Mass/Vol]24 pg/mL0-15St. [facility] Medical CenterWBC Auto (Bld) [#/Vol]Ordered By: Caden Jarrell on 23-19-1562HTB (Bld) [#/Vol]7.8 10*3/uL3.8-11.6 [facility] Medical CenterCBC AUTO DIFFon 77-58-5859AUGM #0.0 103/ul Normal0.0-0.1The [facility] HospitalComment on above:Performed By: #### HSTROPN #### [facility] [address] [address] [address] Debra Hutchinsphils/100 WBC (Bld)0.5 %Normal0.2-2.0[facility] Comment on above:Performed By: #### HSTROPN #### [facility] [address] [place], [place] [address] Dr. Debra Villasenor #0.1 103/ulNormal0.0-0.7The [facility] HospitalComment on above: Performed By: #### HSTROPN #### [facility] [address] [place] [address] Dr. Debra Gallegoosinophils/100 WBC (Bld)1.4 %Normal0.9-7.0The [facility] Comment on above:Performed By: #### HSTROPN #### [facility] [address] [place] [address] Dr. Debra Gallegorythrocyte distribution width (RBC) [Ratio]14.1 %Ixxxkg64.0-15.0 The [facility] HospitalComment on above:Performed By: #### HSTROPN #### [facility] [address] [place] [address] Dr. Debra BlakeHematocrit (Bld) [Volume fraction]26.2 %Critically low36.0-48.0 Lutheran HospitalComment on above:Performed By: #### HSTROPN #### [facility] [address] [place] [address] Dr. Debra BlakeHemoglobin (Bld) [Mass/Vol]9.1 g/dLCritically low12.0-16.0The [facility] HospitalComment on above:Performed By: #### HSTROPN #### [facility] [address] [place] [address] Dr. Debra Bay #0.03 10e3/ulNormal0.00-0.03The [facility] HospitalComment on above:Performed By: #### HSTROPN #### [facility] [address] [place] [address] Dr. Debra Bay %0.4 %Normal0.0-0.5The [facility] HospitalComment on above: Performed By: #### HSTROPN #### [facility] [address] [place] [address] Dr. Debra Early #1.5 103/ulNormal1.2-3.8The [facility] HospitalComment on above:Performed By: #### HSTROPN #### [facility] [address] [place] [address] Dr. Debra Iglesiasmphocytes/100 WBC (Bld)19.0 %Critically low20.5-60.0The [facility] HospitalComment on above:Performed By: #### HSTROPN #### [facility] [address] [place] [address] Dr. Debra ObrienUAL DIFF REQNONormalThe [facility] HospitalComment on above: Performed By: #### HSTROPN #### [facility] [address] [place] [address] Dr. Debra Recio (RBC) [Entitic mass]34.3 pgCritically high26.7-34.0The [facility] HospitalComment on above:Performed By: #### HSTROPN #### [facility] [address] [place] [address] Dr. Debra Recio (RBC) [Mass/Vol]34.7 g/dZGbaqzu51.9-35.2The [facility] HospitalComment on above:Performed By: #### HSTROPN #### [facility] [address] [place] [address] Dr. Debra Recio (RBC) [Entitic vol]98.9 uDQdgwmb97.0-99.0The [facility] HospitalComment on above:Performed By: #### HSTROPN #### [facility] [address] [place] [address] Dr. Debra Hallman #0.8 103/ulNormal0.3-0.8The [facility] HospitalComment on above:Performed By: #### HSTROPN #### [facility] [address] [place] [address] Dr. Debra Spauldingocytes/100 WBC (Bld)10.0 %Normal1.7-12.0[facility] Comment on above:Performed By: #### HSTROPN #### [facility] [address] [place] [address] Dr. Debra Valdovinos #5.5 103/ulNormal1.4-6.5The Machias HospitalComment on above:Performed By: #### HSTROPN #### [facility] [address] [place] [address] Dr. Debra BlakeNeutrophils/100 WBC (Bld)68.7 %Gskazw20.0-75.0The [facility] HospitalComment on above:Performed By: #### HSTROPN #### [facility] [address] [place] [address] Dr. Debra BlakePlatelet mean volume (Bld) [Entitic vol]9.5 fLNormal9.5-13.5The [facility] HospitalComment on above:Performed By: #### HSTROPN #### [facility] [address] [place] [address] Dr. Debra BlakePLT300 103/vuHpbiin622-401Awb [facility] HospitalComment on above: Performed By: #### HSTROPN #### [facility] [address] [place] [address] Dr. Debra BlakeRBC2.65 106/ulCritically low4.20-5.40The [facility] HospitalComment on above:Performed By: #### HSTROPN #### [facility] [address] [place] [address] Dr. Debra BlakeWBC8.1 103/ulNormal4.0-11.0The [facility] HospitalComment on above: Performed By: #### HSTROPN #### [facility] [address] [place] [address] Dr. Debra BlakeCovid-19 PCR ([facility])on 37-76-4128GAEK-CoV-2 (COVID-19) RNA YVONNE+probe Ql (Unsp spec)Not detectedNormalNOT DETECTEDThe [facility] Comment on above:Result Comment: When diagnostic testing [...] for this test is supported by the [employer] of Health and Human Service's declaration that [...] longer be used).Performed By: #### CVDTBH #### [facility] [address] [place] [address] Dr. Debra Johnson URINE PROFILEon 28-98-9437Nsqiticys Ql (U)NegativeNormal NEGATIVELutheran HospitalComment on above:Performed By: #### HSTROPN #### [facility] [address] [place] [address] Dr. Debra BlakeClarity (U)CLEARNormalCLEARLutheran HospitalComment on above: Performed By: #### HSTROPN #### [facility] [address] [place] [address] Dr. Debra Pedroza (U)LT. YELLOWNormalYELLOWLutheran HospitalComment on above:Performed By: #### HSTROPN #### [facility] [address] [place] [address] Dr. Debra Francisco micrscopic examination will be performed if indicated. NormalLutheran HospitalComment on above:Performed By: #### HSTROPN #### [facility] [address] [place] [address] Dr. Debra BlakeGlucose Ql (U)NegativeNormalNEGATIVELutheran HospitalComment on above:Performed By: #### HSTROPN #### [facility] [address] [place] [address] Dr. Debra BlakeHemoglobin Ql (U)NegativeNormalNEGATIVELutheran Hospital Comment on above:Performed By: #### HSTROPN #### [facility] [address] [place] [address] Dr. Debra Ni Ql (U)NegativeNormalNEGATIVEThe [facility] HospitalComment on above:Performed By: #### HSTROPN #### [facility] [address] [place] [address] Dr. Debra BlakeLEUKOCYTESNegativeNormalNEGATIVEThe [facility] HospitalComment on above:Performed By: #### HSTROPN #### [facility] [address] [place] [address] Dr. Debra Dwyertrite Ql (U)NegativeNormalNEGATIVEThe Machias HospitalComment on above:Performed By: #### HSTROPN #### [facility] [address] [place] [address] Dr. Debra BlakepH (U)7.0 [pH]Normal5-9The [facility] HospitalComment on above: Performed By: #### HSTROPN #### [facility] [address] [place] [address] Dr. Debra BlakeSPEC GRAVITY1.382Kiyagh1.005-<=1.025The [facility] HospitalComment on above:Performed By: #### HSTROPN #### [facility] [address] [place] [address] Dr. Debra Diamond PROTEINTRACENormalNEGATIVE/ TRACEThe [facility] HospitalComment on above:Performed By: #### HSTROPN #### [facility] [address] [place] [address] Dr. Debra BlakeUR MICRO INDNOT INDICATEDNormalThe [facility] HospitalComment on above:Performed By: #### HSTROPN #### [facility] [address] [place] [address] Dr. Debra BlakeUrobilinogen Qn (U)0.2 {Pascale'U}/dLNormal0.2 - 1.0The [facility] HospitalComment on above:Performed By: #### HSTROPN #### [facility] [address] [place] [address] Dr. Debra GallegoTHANOL (BLD ALC)on 40-13-7824WSR NOTENOTE: 80 mg/dl is the legal limit for a blood alcohol levelNoACMC Healthcare System GlenbeighComment on above: Performed By: #### ETH #### [facility] [address] [place] [address] Dr. Debra Gallegothanol [Mass/Vol]mg/dLNoACMC Healthcare System GlenbeighComment on above:Performed By: #### ETH #### [facility] Laboratory [address] [place] [address] Dr. Debra BlakePROF CHEM 8 (BAS METB)on 46-01-6222Jwmeb gap [Moles/Vol]14.8 mmol/LNormalThe Clinton [facility] HospitalComment on above:Performed By: #### HSTROPN, CMP #### [facility] [address] [place] [address] Dr. Debra BlakeCalcium [Mass/Vol]7.6 mg/dLCritically low8.5-10.1The [facility] HospitalComment on above:Performed By: #### HSTROPN, CMP #### [facility] [address] [place] [address] Dr. Debra BlakeChloride [Moles/Vol]93 mmol/LCritically dpe99-244Cdv [facility] HospitalComment on above:Performed By: #### HSTROPN, CMP #### [facility] [address] [place] [address] Dr. Debra BlakeCO2 [Moles/Vol]30.6 mmol/LNgaysk94.0-32.0[facility] Comment on above:Performed By: #### HSTROPN, CMP #### [facility] [address] [place] [address] Dr. Debra BlakeCreatinine [Mass/Vol]2.27 mg/dLCritically high0.55-1.02The [facility] HospitalComment on above:Performed By: #### HSTROPN, CMP #### [facility] [address] [place] [address] Dr. Richardson ChangEGFR-AF DHWHDYRX04 mL/min/1.54t3Obhkccguba low>=60The [facility]assan HospitalComment on above:Performed By: #### HSTROPN, CMP #### [facility] [address] [address] [address] Debra GallegoGFR-NON AF MCNOVFPU93 mL/min/1.71g5Wuzlkaqdlz low>=60The [facility] on above:Performed By: #### HSTROPN, CMP #### [facility] [address] [address] [address] Debra BlakeGlucose [Mass/Vol]114 mg/dLCritically wgnu38-682Wzi [facility] on above:Performed By: #### HSTROPZelalem, CMP #### [facility] [address] [address] [address] Debra BlakePotassium [Moles/Vol]3.4 mmol/LCritically low3.5-5.1The [facility] on above:Performed By: #### HSJORGE, CMP #### [facility] [address] [address] [address] Debra BlakeSodium [Moles/Vol]135 mmol/LCritically hra462-456Ley [facility] on above:Performed By: #### HSTRKATHY, CMP #### [facility] [address] [address] [address] Debra BlakeUrea nitrogen [Mass/Vol]20.0 mg/dLCritically high7.0-18.0The [facility] on above:Performed By: #### HSTROPZelalem, CMP #### [facility] [address] [place] [address] Dr. Debra BlakeUrea nitrogen/Creatinine [Mass ratio]8.8 mg/mgNormalThe [facility] on above:Performed By: #### HSTROPZelalem, CMP #### [facility] [address] [place] [address] Dr. Debra Metz, HIGH SENSITIVITYon 67-45-7480IGYVIR36.7 pg/mLNormal 4.0-51.3The [facility] on above:Result Comment: CUT-OFF POINTS HAVE BEEN ESTABLISHED BASED ON THE FOURTH UNIVERSAL DEFINITIONS OF MYOCARDIAL INFARCTION. THE UPPER REFERENCE LIMIT (URL) OF TROPONIN, DEFINED THE 99TH PERCENTILE OF cTnI DISTRIBUTION IN A REFERENCE POPULATION, HAS BEEN CONFIRMED THE DECISION THRESHOLD FOR [place] DIAGNOSIS.Performed By: #### HSTROPN #### [facility] [address] [address] [address] Debra BlakeXR CHEST 1 Von 52-97-6216BT CHEST 1 VEXAMINATION: XR CHEST 1 V [...] Electronically authenticated by: DENISE MESSER Date: 2021-12-19 15:[address] [place], [place] [address]Basophils Auto (Bld) [#/Vol]Ordered By: Hong Jewell on 11-63-9946Aqlbvedow (Bld) [#/Vol]0.1 10*3/uL0.0-0.2FUniversity Hospitals Geauga Medical CenterBasophils/100 WBC Auto (Bld)Ordered By: Hong Jewell on 12-10-2021 Basophils/100 WBC (Bld)0.9 %.[facility] CenterBlood hemoglobin measurement (mass/volume)Ordered By: Hong Jewell on 12-10-2021 Hemoglobin (Bld) [Mass/Vol]7.5 g/dL11.8-15.4FUniversity Hospitals Geauga Medical Center Blood leukocytes automated count (number/volume)Ordered By: Hong Jewell on 75-54-6290JHN (Bld) [#/Vol]6.3 10*3/uL4.5-11.0[facility] CenterCreatinine and Glomerular filtration rate.predicted panel (S/P/Bld)Ordered By: Hong Jewell on 93-99-1692Ogkhxpjxnq [Mass/Vol]1.84 mg/dL0.44-1.03 [facility] Medical CenterEosinophils Auto (Bld) [#/Vol]Ordered By: Hong Jewell on 01-03-0788Edyeskedtcs (Bld) [#/Vol]0.2 10*3/uL0.0-0.45 [facility] CenterEosinophils/100 WBC Auto (Bld)Ordered By: Hong Jewell on 70-58-3702Wxppozrihky/100 WBC (Bld)3.5 %.[facility] CenterErythrocyte distribution width Auto (RBC) [Ratio]Ordered By: Hong Jewell on 29-49-8414Xsxgepcirrl distribution width (RBC) [Ratio]16.3 %11.9-15.3FUniversity Hospitals Geauga Medical CenterEstimated glomerular filtration rate (GFR) non- AmericanOrdered By: Hong Jewell on 82-22-3652YSS/1.73 sq M.predicted among non-blacks MDRD (S/P/Bld) [Vol rate/Area]28 mL/MinSt. Mary'S Medical CenterHematocrit Auto (Bld) [Volume fraction]Ordered By: Hong Jewell on 86-86-7237Jquzlcwini (Bld) [Volume fraction]22.8 %34.0-46.4FUniversity Hospitals Geauga Medical CenterLaboratory - Chemistry and Chemistry - challengeOrdered By: Hong Jewell on 68-22-2577Ufmtytbsc [Mass/Vol]0.7 mg/dL1.6-2.6FUniversity Hospitals Geauga Medical Center Comment on above:Results called at 0825 on 12/10/21Laboratory - Hematology and Cell countsOrdered By: Hong Jewell on 99-61-3257Gtbsaexbn RBC/100 WBC (Bld) [Ratio]0.0 %0-0.5FUniversity Hospitals Geauga Medical CenterLymphocytes Auto (Bld) [#/Vol]Ordered By: Hong Jewell on 60-14-8995Pmlrxdwfeso (Bld) [#/Vol]1.4 10*3/uL1.00-4.8St. [facility] Medical CenterLymphocytes/100 WBC Auto (Bld)Ordered By: Hong Jewell on 02-12-8457Pccunkwdinq/100 WBC (Bld)21.7 %.[facility] Medical CenterMC Auto (RBC) [Entitic mass]Ordered By: Hong Jewell on 04-52-3507PNZ (RBC) [Entitic mass]34.3 pg24.7-34.3FUniversity Hospitals Geauga Medical CenterMCHC Auto (RBC) [Mass/Vol]Ordered By: Hong Jewell on 12-10-2021 MCHC (RBC) [Mass/Vol]33.0 g/dL32.0-35.0[facility] Medical CenterMCV Auto (RBC) [Entitic vol]Ordered By: Hong Jewlel on 12-13-9302YDM (RBC) [Entitic vol]103.8 gB45-296DapbgwscySt. Mary'S Medical CenterMonocytes Auto (Bld) [#/Vol]Ordered By: Hong Jewell on 90-12-6781Srqmshgwe (Bld) [#/Vol]0.7 10*3/uL0.0-0.8St. [facility] Medical CenterMonocytes/100 WBC Auto (Bld) Ordered By: Hong Jewell on 29-70-0680Wajdqmfyb/100 WBC (Bld)11.2 %. [facility] Medical CenterNeutrophils Auto (Bld) [#/Vol]Ordered By: Hong Jewell on 55-39-5597Jtqrmfplskw (Bld) [#/Vol]3.9 10*3/uL1.8-7.7 [facility] CenterNeutrophils/100 WBC Auto (Bld)Ordered By: Hong Jewell on 88-65-7698Dfwumbmdnjn/100 WBC (Bld)62.7 %.[facility] Medical CenterNo Panel InformationOrdered By: Hong Jewell on 27-49-5108Zooceczev GFR ()34 mL/MinSt. Mary'S Medical CenterComment on above:GFR estimated reference range: According to KDOQI guidelines, <60 ml/min/1.73m2 is sufficient todiagnose a patient with chronic kidney disease.Pharmacy Creatinine Clearance (Chem36.70St. [facility]S Medical CenterPlatelet mean volume Auto (Bld) [Entitic vol]Ordered By: Hong Jewell on 85-09-0488Jccbxclw mean volume (Bld) [Entitic vol]6.7 fL 6.3-10.7FUniversity Hospitals Geauga Medical CenterPlatelets Auto (Bld) [#/Vol]Ordered By: Hong Jewell on 98-39-4229Mngoecrbz (Bld) [#/Vol]356 10*3/iK573-172 [facility] CenterRBC Auto (Bld) [#/Vol]Ordered By: Hong Jewell on 17-07-3963FBW (Bld) [#/Vol]2.20 10*6/uL3.60-5.00[facility] Barberton Campuserum or plasma anion gap determinationOrdered By: Hong Jewell on 87-57-8017Gvknt gap [Moles/Vol]TNPSt. Mary'S Medical Center Comment on above:Test not performedSerum or plasma calcium measurement (mass/volume)Ordered By: Hong Jewell on 57-37-9661Zhhdzho [Mass/Vol]9.0 mg/dL8.2-10.2FOhioHealth Hardin Memorial Hospitalerum or plasma chloride measurement (moles/volume)Ordered By: Hong Jewell on 20-31-0191Zxiuqngg [Moles/Vol]104 mmol/L66-008UxccxbqooSumma Health Barberton Campuserum or plasma glucose measurement (mass/volume)Ordered By: Hong Jewell on 12-10-2021 Glucose [Mass/Vol]137 mg/aI33-395IulgaesxkSt. Mary'S Medical CenterComment on above:ADA recommended reference range Random Glucose Reference Range is dependent on time and content of last meal. Glucose of more than 200 mg/dL in a nonstressed, ambulatory subject supports the diagnosis of Diabetes Mellitus.Serum or plasma potassium measurement (moles/volume)Ordered By: Hong Jewell on 93-88-4748Lycxcpbxb [Moles/Vol]4.7 mmol/L3.5-5.1FOhioHealth Hardin Memorial Hospitalerum or plasma sodium measurement (moles/volume)Ordered By: Hong Jewell on 12-10-2021 Sodium [Moles/Vol]131 mmol/T273-863ZcqxwfpoeSumma Health Barberton Campuserum or plasma total carbon dioxide measurement (moles/volume)Ordered By: Hong Jewell on 61-64-5632NI9 [Moles/Vol]21.1 mmol/L22.0-30.0Sum[facility] Barber[facility] Campuserum or plasma urea nitrogen measurement (mass/volume)Ordered By: Hong Jewell on 92-67-2764Cquk nitrogen [Mass/Vol]21 mg/dL9-23Sum[facility] Health Barberton Campuserum DNA double strand antibody assay (units/volume) Ordered By: William Esposito on 22-97-8918LWA double strand Ab Qn (S)[IU]/mL0-9 [facility] Medical CenterComment on above:Negative <5 Equivocal 5 - 9 Positive >9 Performed at: [facility] Lab[address] [id number] Chief Solution Architect: Sanford Mehta PhD, Phone: [phone] [Mass/volume] in Serum or PlasmaOrdered By: William Esposito on 76-90-7229Dedjrbv [Mass/Vol]2.6 g/dL 2.9-4.4FUniversity Hospitals Geauga Medical CenterAlbumin/Protein.total in 24 hour Urine by ElectrophoresisOrdered By: William Esposito on 85-37-0766Gkydibe Elph (24H U) [Mass fraction]69.2 %.[facility] Medical CenterCreatinine [Mass/volume] in UrineOrdered By: William Esposito on 38-59-9931Csyhtotjty (U) [Mass/Vol]153.0 mg/dLSt. Mary'S Medical CenterComment on above:No reference range establishedGamma globulin/Protein.total in 24 hour Urine by Electrophoresis Ordered By: William Esposito on 22-28-1656Zqmhy globulin Elph (24H U) [Mass fraction] 8.2 %.[facility] Medical CenterIgA [Mass/volume] in Serum or Plasma Ordered By: William Esposito on 56-33-9045HxT [Mass/Vol]357 mg/oM93-836XxkpacijnSt. Mary'S Medical CenterIgG [Mass/volume] in Serum or PlasmaOrdered By: William Esposito on 94-79-1148MrT [Mass/Vol]794 mg/hO407-5217AobixncpgSt. Mary'S Medical CenterIgM [Mass/volume] in Serum or PlasmaOrdered By: William Esposito on 12-07-2021 IgM [Mass/Vol]109 mg/sZ56-224MljwqyigfSt. Mary'S Medical CenterComment on above: Performed at: [facility] [id number] Chief Solution Architect: Sanford Mehta PhD, Phone: [phone] for Urine Ordered By: William Esposito on 02-09-5252Ibhbbrecvnxpqq Immunofixation (U) [Interp] Comment:.[facility] Medical CenterComment on above:Presence of monoclonal protein is unclear at this time. Suggest repeat in 3 to 6 months if clinically indicated. Performed at: [facility] [id number] Chief Solution Architect: Sanford Mehta PhD, Phone: [phone] light chains.kappa.free [Mass/volume] in SerumOrdered By: William Esposito on 12-07-2021 Immunoglobulin light chains.kappa.free (S) [Mass/Vol]81.9 mg/L3.3-19.4FUniversity Hospitals Geauga Medical CenterImmunoglobulin light chains.kappa.free/Immunoglobulin light chains.lambda.free [MassOrdered By: William Esposito on 12-07-2021 Immunoglobulin light chains.kappa.free/Immunoglobulin light chains.lambda.free (S) [Mass ratio]1.310.26-1.65St. [facility]S Medical CenterComment on above: Performed at: [facility] [employer] [id number] Chief Solution Architect: Sanford Mehta PhD, Phone: [phone] light chains.lambda.free [Mass/volume] in Serum or PlasmaOrdered By: William Vaibhav on 80-35-8447Mmcrxjqdohxdgw light chains.lambda.free [Mass/Vol]62.3 mg/L5.7-26.3 [facility] CenterNo Panel InformationOrdered By: William Esposito on 47-58-2362Jibwa Random Prot Electrophor NoteSee comment.[facility]. [facility]'S Medical CenterComment on above:Protein electrophoresis scan will follow via computer, mail, or department administrator delivery. Performed at: [address] [id number] Chief Solution Architect: Sanford Mehta PhD, Phone: [phone] Electrophoresis M-SpikeNot observed g/dLNot ObservedSt. Mary'S Medical CenterProtein Electrophoresis NoteSee comment.[facility] Medical CenterComment on above:Protein electrophoresis scan will follow via computer, mail, or department administrator delivery. Performed at: [address] [id number] Chief Solution Architect: Sanford Mehta PhD, Phone: [phone] ImmunofixationSee comment.[facility]S Medical CenterComment on above:No monoclonality detected.Protein [Mass/volume] in Serum or PlasmaOrdered By: William Esposito on 48-86-5637Jmtmild [Mass/Vol]5.2 g/dL6.0-8.5FUniversity Hospitals Geauga Medical Center Protein [Mass/volume] in UrineOrdered By: William Vaibhav on 61-71-6273Bvtoffk (U) [Mass/Vol]51.3 mg/dLNot Estab.[facility] Protein.monoclonal/Protein.total in 24 hour Urine by ElectrophoresisOrdered By: William Esposito on 02-06-8059Kigjqfa.monoclonal Elph (24H U) [Mass fraction]Not observed %Not ObservedSumma Health Barberton Campuserum globulin measurement (mass/volume)Ordered By: William Vaibhav on 63-51-0708Gwopbrhy (S) [Mass/Vol]2.6 g/dL2.2-3.9Sum[facility] Barber[facility] Campuserum or plasma albumin/globulin mass ratioOrdered By: William Vaibhav on 60-67-8115Fskatmz/Globulin [Mass ratio]1.0 {ratio}0.7-1.7FOhioHealth Hardin Memorial Hospitalerum or plasma alpha 1 globulin measurement by electrophoresis (mass/volume)Ordered By: William Vaibhav on 52-72-8274Qjlxg 1 globulin Elph [Mass/Vol]0.3 g/dL0.0-0.4FOhioHealth Hardin Memorial Hospitalerum or plasma alpha 2 globulin measurement by electrophoresis (mass/volume)Ordered By: William Vaibhav on 95-23-7128Emdxg 2 globulin Elph [Mass/Vol]0.7 g/dL0.4-1.0Sum[facility] Barber[facility] Campuserum or plasma beta globulin measurement by electrophoresis (mass/volume)Ordered By: William Vaibhav on 64-37-7061Zgkh globulin Elph [Mass/Vol]0.7 g/dL0.7-1.3FOhioHealth Hardin Memorial Hospitalerum or plasma gamma globulin measurement by electrophoresis (mass/volume)Ordered By: William Vaibhav on 54-73-4771Krmsp globulin Elph [Mass/Vol]0.9 g/dL0.4-1.8[facility] Medical CenterTroponin I.cardiac [Mass/volume] in Serum or Plasma by High sensitivity methodOrdered By: Hong Jewell on 27-62-7724Yiatgezj I.cardiac High sensitivity method [Mass/Vol]7 pg/mL0-15St. [facility] Medical CenterUrine alpha 1 globulin/total protein by electrophoresisOrdered By: William Vaibhav on 12-07-2021 Alpha 1 globulin Elph (U) [Mass fraction]3.1 %.[facility] Urine alpha 2 globulin/total protein ratio by electrophoresisOrdered By: William Vaibhav on 07-17-8228Vjqgg 2 globulin Elph (U) [Mass fraction]6.0 %.[facility]S Medical CenterUrine beta globulin measurement by electrophoresis (mass/volume)Ordered By: William Vaibhav on 42-14-5559Qtlm globulin Elph (U) [Mass/Vol]13.5 %.[facility] Medical CenterUrine culture routineOrdered By: Hong Jewell on 85-48-8443Zjbujdyz identified Cx Nom (U)Klebsiella oxytocaSt. Mary'S Medical CenterUrine protein/creatinine ratioOrdered By: William Esposito on 83-33-0163Olzfwcc/Creatinine (U) [Ratio]359 mg/g{Cre}0-200 [facility] CenterAlbumin [Mass/volume] in Serum or PlasmaOrdered By: William Esposito on 61-50-3476Sywezhl [Mass/Vol]3.0 g/dL3.2-5.5FUniversity Hospitals Geauga Medical CenterCULTURE URINEon 04-31-4067XLRPYJF URINEIsolate 1 Raoultella ornithinolytica >100,000 cfu/mL of [...] <=16 S F Trimethoprim/Sulfamethoxazole <=20 S FNormalThe [facility] HospitalComment on above:Performed By: #### HSTROPN #### [facility] [address] [place] [address] Dr. Debra BlakeGlucose Glucometer (BldC) [Mass/Vol]Ordered By: Hong Jewell on 29-00-9882Vtemmck [Mass/Vol]145 mg/dLSt. Mary'S Medical CenterComment on above:Random Glucose Reference Range is dependent on time and content of last meal. Glucose of more than 200 mg/dL in a nonstressed, ambulatory subject supports the diagnosis of Diabetes Mellitus.No Panel InformationOrdered By: Hong Jewell on 96-52-7610Ajrc-Nuclear Antibody Comment 2See comment.[facility]S Medical CenterComment on above:For more information about Hep-2 cell [...] titers Nucleosomes, Histones Drug-induced SLE Speckled Sm, AIRCRAFT NAVIGATOR, SCL-70, SLE,MCTD,PSS (diffuse form), SS-A/SS-B Sjogrens Nucleolar SCL-70, PM-1/SCL High titers Scleroderma, PM/DM Centromere Centromere PSS (limited form) w/Crest syndrome variable Nuclear Dot Sp100,m25-aorxjo Primary Biliary Cirrhosis Nuclear GP210, Primary Biliary Cirrhosis Membrane chun A,B,C Performed at: [facility] [employer] [id number] Chief Solution Architect: Sanford Mehta PhD, Phone: [phone] URINEon 86-20-8350Dowxqeyvfp, Scmdc644 mOsmol/kgNoACMC Healthcare System GlenbeighComment on above:Result Comment: 24 hr : 300 - 900 Random: 50 - 1400 After 12hr fluid restriction: >850Performed By: #### HSTROPN #### [facility] [address] [address] [address] Debra Castellanos nuclear antibody titerOrdered By: Hong Jewell on 20-09-8603Umyadux Ab (S) [Titer]Positive.[facility] Comment on above:Negative <1:80 Borderline 1:80 Positive >1:80Serum or plasma cyclic adenosine monophosphate measurement (moles/volume)Ordered By: Hong Jewell on 18-83-5944Pwadqcunf monophosphate.cyclic [Moles/Vol]10 units0-19[facility] Comment on above:Negative <20 Weak positive 20 - 39 Moderate positive 40 - 59 Strong positive >59 Performed at: [facility] Lab[address] [id number] Chief Solution Architect: Meli Bishop MD, Phone: [phone] or plasma ethanol measurement (mass/volume)Ordered By: Rehan Russ on 04-33-1598Qaraonr [Mass/Vol]mg/dLSt. Mary'S Medical CenterEthanol [Mass/Vol]TNPSt. Mary'S Medical CenterComment on above:Test not performedSerum speckled pattern antinuclear antibody (MATY) titerOrdered By: Hong Jewell on 12-06-2021 Speckled nuclear Ab pattern (S) [Titer]1:80.[facility] Comment on above:ICAP nomenclature: AC-2,4,5,29Amphetamine Screen Ql (U)Ordered By: Hong Jewell on 06-09-2021Xakvpgjbohqe Ql (U)NegativeNegative [facility] Medical CenterAutomated erythrocytes count in urine sediment (number/area)Ordered By: Hong Jewell on 79-07-3985LDQ Auto (Urine sed) [#/Area]1-2 [HPF]0-4FUniversity Hospitals Geauga Medical CenterAutomated leukocytes count in urine sediment (number/area)Ordered By: Hong Jewell on 21-06-9229PTP Auto (Urine sed) [#/Area]Innumerable [HPF]0-4FUniversity Hospitals Geauga Medical Center Barbiturates [Presence] in UrineOrdered By: Hong Jewell on 12-05-2021 Barbiturates Ql (U)NegativeNegKindred Hospital Dayton Benzodiazepines [Presence] in UrineOrdered By: Hong Jewell on 79-65-1284Opcrirfvqctefcx Ql (U)PositiveNegKindred Hospital DaytonBilirubin Test strip Ql (U)Ordered By: Hong Jewell on 12-05-2021 Bilirubin Ql (U)NegativeNegKindred Hospital DaytonCT biopsy Ordered By: Hong Jewell on 87-73-3986Pgnbemzbvpw [Mass/Vol]175 mg/dL 180-380St. [facility] Medical CenterCannabinoids [Presence] in Urine by Screen methodOrdered By: Hong Jewell on 69-38-9561Dmfmdqwuwdvx Screen Ql (U)NegativeNegKindred Hospital DaytonComment on above:These are unconfirmed results and should not be used for legal purposes. Drug Cut-Off Concentration: AMPH 1000 ng/mL GAYLE 200 ng/mL ISAEL 200 ng/mL COCM 300 ng/mL OP 300 ng/mL PCP 25 ng/mL THC 20 ng/mLColor Auto (U)Ordered By: Hong Jewell on 90-87-0746Cgvxz (U)YellowYellowSt. Mary'S Medical CenterFerritin [Mass/volume] in Serum or PlasmaOrdered By: Hong Jewell on 98-57-9522Ejjibpjl [Mass/Vol]80.8 ng/cV10-282.8St. [facility] Medical CenterIron [Mass/volume] in Serum or PlasmaOrdered By: Hong Jewell on 16-65-2318Bbql [Mass/Vol]22 ug/dL 40-150St. [facility]S Medical CenterIron binding capacity [Mass/volume] in Serum or PlasmaOrdered By: Hong Jewell on 02-54-2064Inef binding capacity [Mass/Vol]245 ug/nV763-256TvelnknqeSt. Mary'S Medical CenterKetones Auto test strip (U) [Mass/Vol]Ordered By: Hong Jewell on 19-68-3856Nudcncn (U) [Mass/Vol]NegativeNegKindred Hospital DaytonLaboratory - Drug toxicologyOrdered By: Hong Jewell on 72-22-7608Hzwpdwk Ql (U)Negative NegativeSt. Mary'S Medical CenterLaboratory - UrinalysisOrdered By: Hong Jewell on 77-53-1605Yvwlzae casts LM Ql (Urine sed)0-8 [LPF]0-8 [facility] Medical CenterLactate dehydrogenase measurement (enzymatic activity/volume)Ordered By: Hong Jewell on 78-06-0122XWK (Unsp spec) [Catalytic activity/Vol]135 U/P03-942IurywhurwSt. Mary'S Medical CenterNitrite Test strip Ql (U)Ordered By: Hong Jewell on 95-86-4373Dwstekx Ql (U) NegativeNegativeSt. Mary'S Medical CenterNo Panel InformationOrdered By: Hong Jewell on 17-72-866308348835-Sgjmnfz Vitamin D Total21.8 ng/kN93-714 [facility] Medical CenterComment on above:VITAMIN D STATUS 25(OH)VITAMIN D RANGE (ng/mL) Deficient <20 Insufficient 20 to <30 Sufficient 30 to 100 Reference: Maggie MF,Jose NC, Gilberto VARGAS, et al. Evaluation,treatment, and prevention of vitamin D deficiency; an Endocrine Society clinical practice guideline. JCEM. 2010; 96(7):1911-30.Vitamin C level<0.1 mg/dL0.4-2.0St. [facility]S Medical CenterComment on above:This test was developed and its performance characteristics determined by [facility]. It has not been cleared or approved by the Food and Drug Administration. Vitamin C deficiency is generally defined as plasma or serum concentrations less than 0.2 mg/dL and levels between 0.2 and 0.4 mg/dL are considered low. Performed at: [address] [id number] Chief Solution Architect: Meli Bishop MD, Phone: [phone] Screen Ql (U) Ordered By: Hong Jewell on 73-26-9813Rgtxqpqohuokf Ql (U)Negative NegativeSt. Mary'S Medical CenterProtein Auto test strip (U) [Mass/Vol] Ordered By: Hong Jewell on 28-35-7912Llllbki (U) [Mass/Vol]30 mg/dL NegativeSumma Health Barberton Campuserum or plasma thyroxine (T4) measurement (mass/volume)Ordered By: Hong Jewell on 79-81-7759R1 [Mass/Vol]7.19 ug/dL5.39-11.82Summa Health Barberton Campuspecific gravity Auto test strip (U) [Rel density]Ordered By: Hong Jewell on 12-05-2021 Specific gravity (U) [Rel density]1.0131.001-1.030Summa Health Barberton Campusquamous epithelial cells detection in urine sediment by light microscopy Ordered By: Hong Jewell on 58-52-8307Wdslfofqcf cells.squamous LM Ql (Urine sed)5-9 [HPF]0-2FUniversity Hospitals Geauga Medical CenterThyroxine (T4) free [Mass/volume] in Serum or PlasmaOrdered By: Hong Jewell on 12-05-2021 Free T4 [Mass/Vol]1.00 ng/dL0.61-1.12St[facility] Medical CenterUrine bacteria detection by automated methodOrdered By: Hong Jewell on 28-04-7678Swvfrjqf Auto Ql (U)4+None SeenSt. Mary'S Medical CenterUrine clarity by refractometry automatedOrdered By: Hong Jewell on 12-05-2021 Clarity Refractometry automated (U)CloudyClearFUniversity Hospitals Geauga Medical Center Urine cocaine detectionOrdered By: Hong Jewell on 26-62-9396Gmsqcct Ql (U)NegativeNegativeSt. Mary'S Medical CenterUrine glucose measurement by automated test strip (mass/volume)Ordered By: Hong Jewell on 85-15-3565Pdxiitr Auto test strip (U) [Mass/Vol]Normal mg/dLNoFisher-Titus Medical CenterUrine hemoglobin detection by automated test stripOrdered By: Hong Jewell on 32-79-8191Hvuyucbmeb Auto test strip Ql (U)Negative The Jewish HospitalUrine leukocyte esterase detection by automated test stripOrdered By: Hong Jewell on 21-76-4711Ainpsqknv esterase Auto test strip Ql (U)4+NegativeSt. Mary'S Medical Center Urobilinogen Auto test strip (U) [Mass/Vol]Ordered By: Hong Jewell on 87-81-1712Xzzhtzzhfxzc (U) [Mass/Vol]Normal mg/dLNoFisher-Titus Medical CenterpH Auto test strip (U)Ordered By: Hong Jewell on 91-83-8642nC (U)5.5 [pH]5.0-9.0[facility] Medical CenterActivated partial thromboplastin time (aPTT) in platelet poor plasma by coagulation a Ordered By: Hong Jewell on 50-76-9646dMZU Coag (PPP) [Time]29.9 s 25.1-36.5FUniversity Hospitals Geauga Medical CenterCBC AUTO DIFFon 26-56-6319PUXK #0.0 103/ulNormal0.0-0.1The Ghassan HospitalComment on above:Performed By: #### HSTROPN, CMP #### [facility] [address] [place] [address] Dr. Debra BlakeBasophils/100 WBC (Bld)0.4 %Normal0.2-2.0[facility] Comment on above:Performed By: #### HSTROPN, CMP #### [facility] [address] [place] [address] Dr. Debra Villasenor #0.1 103/ulNormal0.0-0.7The [facility] HospitalComment on above: Performed By: #### HSTROPN, CMP #### [facility] [address] [place] [address] Dr. Debra Gallegoosinophils/100 WBC (Bld)1.3 %Normal0.9-7.0[facility] Comment on above:Performed By: #### HSTROPN, CMP #### [facility] [address] [place] [address] Dr. Debra Gallegorythrocyte distribution width (RBC) [Ratio]14.6 %Dacpdf91.0-15.0 The [facility] HospitalComment on above:Performed By: #### HSTROPN, CMP #### [facility] [address] [place] [address] Dr. Debra BlakeHematocrit (Bld) [Volume fraction]24.6 %Critically low36.0-48.0 The [facility] HospitalComment on above:Performed By: #### HSTROPN, CMP #### [facility] [address] [place] [address] Dr. Debra BlakeHemoglobin (Bld) [Mass/Vol]8.6 g/dLCritically low12.0-16.0The [facility] HospitalComment on above:Performed By: #### HSTROPN, CMP #### [facility] [address] [place] [address] Dr. Debra Bay #0.04 10e3/ulCritically high0.00-0.03The [facility] Comment on above:Performed By: #### HSTROPN, CMP #### [facility] [address] [place] [address] Dr. Debra BlakeIG %0.6 %Critically high0.0-0.5The [facility] HospitalComment on above:Performed By: #### HSTROPN, CMP #### [facility] [address] [place] [address] Dr. Debra Early #1.3 103/ulNormal1.2-3.8The [facility] HospitalComment on above:Performed By: #### HSTROPN, CMP #### [facility] [address] [place] [address] Dr. Debra Childshocytes/100 WBC (Bld)19.7 %Critically low20.5-60.0The [facility] HospitalComment on above:Performed By: #### HSTROPN, CMP #### [facility] [address] [place] [address] Dr. Debra ObrienUAL DIFF REQNONormalThe [facility] HospitalComment on above: Performed By: #### HSTROPN, CMP #### [facility] [address] [place] [address] Dr. Debra Elizondo (RBC) [Entitic mass]34.3 pgCritically high26.7-34.0The [facility] HospitalComment on above:Performed By: #### HSTROPN, CMP #### [facility] [address] [place] [address] Dr. Debra Recio (RBC) [Mass/Vol]35.0 g/hAAxkfth93.9-35.2The [facility] HospitalComment on above:Performed By: #### HSTROPN, CMP #### [facility] [address] [place] [address] Dr. Debra Recio (RBC) [Entitic vol]98.0 qSNjlhst82.0-99.0The [facility] HospitalComment on above:Performed By: #### HSTROPN, CMP #### [facility] [address] [place] [address] Dr. Debra Hallman #0.9 103/ulCritically high0.3-0.8The [facility] Comment on above:Performed By: #### HSTROPZelalem, CMP #### [facility] [address] [address] [address] Dbera Spauldingocytes/100 WBC (Bld)12.7 %Critically high1.7-12.0The [facility] HospitalComment on above:Performed By: #### HSTROPN, CMP #### [facility] [address] [place] [address] Dr. Debra Valdovinos #4.4 103/ulNormal1.4-6.5The [facility] HospitalComment on above:Performed By: #### HSTROPZelalem, CMP #### [facility] [address] [place] [address] Dr. Debra Alyutrophils/100 WBC (Bld)65.3 %Znwrnb62.0-75.0The [facility] HospitalComment on above:Performed By: #### HSTROPN, CMP #### [facility] [address] [place] [address] Dr. Debra Sunglet mean volume (Bld) [Entitic vol]9.0 fLCritically low 9.5-13.5The [facility] HospitalComment on above:Performed By: #### HSTROPN, CMP #### [facility] [address] [address] [address] Debra BlakePLT142 103/ulCritically pum241-923Mwt [facility] HospitalComment on above:Performed By: #### HSTROPN, CMP #### [facility] [address] [place] [address] Dr. Debra BlakeRBC2.51 106/ulCritically low4.20-5.40The [facility] HospitalComment on above:Performed By: #### HSTROPN, CMP #### [facility] [address] [place] [address] Dr. Debra BlakeWBC6.8 103/ulNormal4.0-11.0The [facility] HospitalComment on above: Performed By: #### HSTROPN, CMP #### [facility] [address] [place] [address] Dr. Debra Hutchins #0.0 103/ulNormal0.0-0.1The [facility] HospitalComment on above:Performed By: #### CBC #### [facility] [address] [place] [address] Dr. Debra BlakeBasophils/100 WBC (Bld)0.5 %Normal0.2-2.0[facility] Comment on above:Performed By: #### CBC #### [facility] [address] [place] [address] Dr. Debra Villasenor #0.1 103/ulNormal0.0-0.7The [facility] HospitalComment on above: Performed By: #### CBC #### [facility] [address] [place] [address] Dr. Debra Gallegoosinophils/100 WBC (Bld)0.9 %Normal0.9-7.0[facility] Comment on above:Performed By: #### CBC #### [facility] [address] [place] [address] Dr. Debra Gallegorythrocyte distribution width (RBC) [Ratio]14.6 %Eodvwz19.0-15.0 [facility] HospitalComment on above:Performed By: #### CBC #### [facility] [address] [place] [address] Dr. Debra BlakeHematocrit (Bld) [Volume fraction]26.2 %Critically low36.0-48.0 The [facility] HospitalComment on above:Performed By: #### CBC #### [facility] [address] [place] [address] Dr. Debra BlakeHemoglobin (Bld) [Mass/Vol]9.2 g/dLCritically low12.0-16.0[facility] HospitalComment on above:Performed By: #### CBC #### [facility] [address] [place] [address] Dr. Debra Bay #0.06 10e3/ulCritically high0.00-0.03The [facility] Comment on above:Performed By: #### CBC #### [facility] [address] [place] [address] Dr. Debra Bay %0.7 %Critically high0.0-0.5The [facility] HospitalComment on above:Performed By: #### CBC #### [facility] [address] [place] [address] Dr. Debra Early #1.3 103/ulNormal1.2-3.8The [facility] HospitalComment on above:Performed By: #### CBC #### [facility] [address] [place] [address] Dr. Debra Childshocytes/100 WBC (Bld)15.7 %Critically low20.5-60.0The [facility] HospitalComment on above:Performed By: #### CBC #### [facility] [address] [place] [address] Dr. Debra Grant DIFF REQNONormalThe [facility] HospitalComment on above: Performed By: #### CBC #### [facility] [address] [place] [address] Dr. Debra Elizondo (RBC) [Entitic mass]34.2 pgCritically high26.7-34.0The [facility] HospitalComment on above:Performed By: #### CBC #### [facility] [address] [place] [address] Dr. Debra Recio (RBC) [Mass/Vol]35.1 g/oQQkaluc20.9-35.2The [facility] HospitalComment on above:Performed By: #### CBC #### [facility] [address] [place] [address] Dr. Debra Connell (RBC) [Entitic vol]97.4 vAYhnnrd20.0-99.0The [facility] HospitalComment on above:Performed By: #### CBC #### [facility] [address] [place] [address] Dr. Debra Hallman #1.1 103/ulCritically high0.3-0.8The [facility] Comment on above:Performed By: #### CBC #### [facility] [address] [place] [address] Dr. Debra Spauldingocytes/100 WBC (Bld)13.3 %Critically high1.7-12.0The [facility] HospitalComment on above:Performed By: #### CBC #### [facility] [address] [place] [address] Dr. Debra Valdovinos #5.6 103/ulNormal1.4-6.5The [facility] HospitalComment on above:Performed By: #### CBC #### [facility] [address] [place] [address] Dr. Debra Alyutrophils/100 WBC (Bld)68.9 %Fhsykw99.0-75.0The [facility] HospitalComment on above:Performed By: #### CBC #### [facility] [address] [place] [address] Dr. Debra Goff mean volume (Bld) [Entitic vol]9.2 fLCritically low 9.5-13.5The [facility] HospitalComment on above:Performed By: #### CBC #### [facility] [address] [place] [address] Dr. Debra BlakePLT179 103/ycTuinzw080-302Xtb [facility] HospitalComment on above: Performed By: #### CBC #### [facility] [address] [place] [address] Dr. Debra BlakeRBC2.69 106/ulCritically low4.20-5.40The [facility] HospitalComment on above:Performed By: #### CBC #### [facility] [address] [place] [address] Dr. Debra BlakeWBC8.1 103/ulNormal4.0-11.0The [facility] HospitalComment on above: Performed By: #### CBC #### [facility] [address] [place] [address] Dr. Debra BlakeCreatine kinase [Enzymatic activity/volume] in Serum or Plasma Ordered By: Hong Jewell on 33-37-1852QM [Catalytic activity/Vol]140 U/L 22St[facility] Medical CenterDirect bilirubin measurementOrdered By: Hong Jewell on 99-84-1450Oleyilzvq.direct [Mass/Vol]0.2 mg/dL0.0-0.4 [facility] Medical CenterFolate [Mass/volume] in Serum or PlasmaOrdered By: Hong Jewell on 75-43-9254Euiavq [Mass/Vol]5.1 ng/mL>5.9St. [facility] CenterComment on above:Folate reference range: >5.9 ng/ml The WHO technical consultation on folate and vitamin b12 deficiencies has determined that folate concentrations less than 4 ng/ml are considered deficient.Globulin Calc (S) [Mass/Vol]Ordered By: Hong Jewell on 92-63-4599Fospeihv (S) [Mass/Vol]3.2 g/dLSt. Mary'S Medical CenterGlucose mean value [Mass/volume] in Blood Estimated from glycated hemoglobinOrdered By: Hong Jewell on 62-34-8239Ppvnjms glucose Estimated from glycated hemoglobin (Bld) [Mass/Vol]97 mg/dLSt. Mary'S Medical CenterHemoglobin A1c percentageOrdered By: Hong Jewlel on 85-70-5085XzQ8w (Bld) [Mass fraction]5.0 %4.3-5.6FUniversity Hospitals Geauga Medical CenterComment on above:Increased risk for diabetes: 5.7 - 6.4 diabetes: >6.4 glycemic control for adults with diabetes: <7.0Laboratory - Chemistry and Chemistry - challengeOrdered By: Hong Jewell on 37-51-1883Rvedhdndh (Vitamin B12) [Mass/Vol]520 pg/iF599-821ZmezcageuSt. Mary'S Medical Center Laboratory - CoagulationOrdered By: Hong Jewell on 48-09-9757EA Coag (PPP) [Time]12.2 s9.0-12.9St. [facility]S Medical CenterMAGNESIUMon 93-53-1152Ngglztubf [Mass/Vol]1.1 mg/dLCritically low1.8-2.4The [facility] HospitalComment on above:Performed By: #### HSTROPN #### [facility] [address] [address] [address] Debra BlakeMagnesium [Mass/Vol]0.6 mg/dLCritically low1.8-2.4The [facility] HospitalComment on above:Performed By: #### HSTROPN, CMP #### [facility] [address] [place] [address] Dr. Debra BlakePROF 14(COMP METB)on 77-55-5699Nvcwxud [Mass/Vol]2.7 g/dL Critically low3.4-5.0The [facility] HospitalComment on above:Performed By: #### HSTROPN #### [facility] [address] [place] [address] Dr. Debra BlakeAlbumin/Globulin [Mass ratio]0.8 {ratio}NormalThe [facility] HospitalComment on above:Performed By: #### HSTROPN #### [facility] [address] [place] [address] Dr. Debra Garcia [Catalytic activity/Vol]57 U/ERtlakt32-922Rxv [facility] HospitalComment on above:Performed By: #### HSTROPN #### [facility] [address] [place] [address] Dr. Debra Piña [Catalytic activity/Vol]7 U/LCritically upz24-30Pnx [facility] HospitalComment on above:Performed By: #### HSTROPN #### [facility] [address] [place] [address] Dr. Debra Espinosa gap [Moles/Vol]17.3 mmol/LNormalThe [facility] Comment on above:Performed By: #### HSTROPN #### [facility] [address] [place] [address] Dr. Debra Faria [Catalytic activity/Vol]14 U/LCritically tpq79-52Ict [facility] HospitalComment on above:Performed By: #### HSTROPN #### [facility] [address] [place] [address] Dr. Debra BlakeBilirubin [Mass/Vol]0.6 mg/dLNormal0.2-1.0The [facility] Comment on above:Performed By: #### HSTROPN #### [facility] [address] [place] [address] Dr. Debra BlakeCalcium [Mass/Vol]5.8 mg/dLCritically low8.5-10.1The [facility] HospitalComment on above:Result Comment: Test Repeated. Critical Value Verified Performed By: #### HSTROPN #### [facility] [address] [place] [address] Dr. Debra BlakeChloride [Moles/Vol]94 mmol/LCritically exe46-499Gba [facility] HospitalComment on above:Performed By: #### HSTROPN #### [facility] [address] [place] [address] Dr. Debra BlakeCO2 [Moles/Vol]17.7 mmol/LCritically low21.0-32.0The [facility] HospitalComment on above:Performed By: #### HSTROPN #### [facility] [address] [place] [address] Dr. Debra BlakeCreatinine [Mass/Vol]2.48 mg/dLCritically high0.55-1.02The [facility] HospitalComment on above:Performed By: #### HSTROPN #### [facility] [address] [place] [address] Dr. Richardson ChangEGFR-AF KBWCPWGJ55 mL/min/1.13h4Clngdrpnzs low>=60The [facility] HospitalComment on above:Performed By: #### HSTROPN #### [facility] [address] [place] [address] Dr. Debra GallegoGFR-NON AF QQNMHHWM65 mL/min/1.12f9Iqpacmvvmd low>=60The [facility] HospitalComment on above:Performed By: #### HSTROPN #### [facility] [address] [address] [address] Debra BlakeGlobulin (S) [Mass/Vol]3.2 g/dLNoACMC Healthcare System GlenbeighComment on above:Performed By: #### HSTROPN #### [facility] [address] [place] [address] Dr. Debra BlakeGlucose [Mass/Vol]108 mg/dLCritically kmqo72-313Ins [facility] HospitalComment on above:Performed By: #### HSTROPN #### [facility] [address] [place] [address] Dr. Debra BlakePotassium [Moles/Vol]3.0 mmol/LCritically low3.5-5.1The [facility] HospitalComment on above:Performed By: #### HSTROPN #### [facility] [address] [place] [address] Dr. Debra BlakeProtein [Mass/Vol]5.9 g/dLCritically low6.4-8.2The [facility] HospitalComment on above:Performed By: #### HSTROPN #### [facility] [address] [place] [address] Dr. Debra BlakeSodium [Moles/Vol]126 mmol/LCritically yju504-720Jqo [facility] HospitalCommclaren bay special care hospital on above:Performed By: #### HSTROPN #### [facility] [address] [place] [address] Dr. Debra BlakeUrea nitrogen [Mass/Vol]29.0 mg/dLCritically high7.0-18.0The [facility] HospitalComment on above:Performed By: #### HSTROPN #### [facility] [address] [place] [address] Dr. Debra BlakeUrea nitrogen/Creatinine [Mass ratio]11.7 mg/mgNoACMC Healthcare System GlenbeighCommclaren bay special care hospital on above:Performed By: #### HSTROPN #### [facility] [address] [place] [address] Dr. Debra BlakeAlbumin [Mass/Vol]3.1 g/dLCritically low3.4-5.0The [facility] HospitalComment on above:Performed By: #### HSTROPN, CMP #### [facility] [address] [place] [address] Dr. Debra BlakeAlbumin/Globulin [Mass ratio]0.8 {ratio}NormalThe [facility] HospitalComment on above:Performed By: #### HSTROPN, CMP #### [facility] [address] [place] [address] Dr. Debra ChungP [Catalytic activity/Vol]65 U/PPcknkw03-926Anj [facility] HospitalComment on above:Performed By: #### HSTROPN, CMP #### [facility] [address] [place] [address] Dr. Derba Piña [Catalytic activity/Vol]9 U/LCritically fjk11-36Wcq [facility] HospitalComment on above:Performed By: #### HSTROPN, CMP #### [facility] [address] [place] [address] Dr. Debra Espinosa gap [Moles/Vol]17.3 mmol/LNormalThe [facility] Comment on above:Performed By: #### HSTROPN, CMP #### [facility] [address] [place] [address] Dr. Debra BlakeAST [Catalytic activity/Vol]17 U/WLoiyng30-27Dcv [facility] Hospitalment on above:Performed By: #### HSTROPN, CMP #### [facility] [address] [place] [address] Dr. Debra BlakeBilirubin [Mass/Vol]0.8 mg/dLNormal0.2-1.0The [facility] Comment on above:Performed By: #### HSTROPN, CMP #### [facility] [address] [place] [address] Dr. Debra BlakeCalcium [Mass/Vol]5.8 mg/dLCritically low8.5-10.1[facility] HospitalComment on above:Result Comment: Test Repeated. Critical Value Verified Performed By: #### HSTROPN, CMP #### [facility] [address] [address] [address] Debra BlakeChloride [Moles/Vol]91 mmol/LCritically pjz42-027Vjg [facility] HospitalComment on above:Performed By: #### HSTROPN, CMP #### [facility] [address] [place] [address] Dr. Debra BlakeCO2 [Moles/Vol]19.6 mmol/LCritically low21.0-32.0The [facility] HospitalComment on above:Performed By: #### HSTROPN, CMP #### [facility] [address] [address] [address] Debra BlakeCreatinine [Mass/Vol]2.66 mg/dLCritically high0.55-1.02The [facility] HospitalComment on above:Performed By: #### HSTROPN, CMP #### [facility] [address] [place] [address] Dr. Richardson ChangEGFR-AF IKKAAIRL84 mL/min/1.69v4Olfmsamslv low>=60The [facility] HospitalComment on above:Performed By: #### HSTROPN, CMP #### [facility] [address] [address] [address] Debra GallegoGFR-NON AF CZVDYQPZ27 mL/min/1.69t3Qsagynbqvf low>=60The [facility] Hospitalment on above:Performed By: #### HSTROPN, CMP #### [facility] [address] [address] [address] Debra BlakeGlobulin (S) [Mass/Vol]3.7 g/dLNormalThe [facility] HospitalComment on above:Performed By: #### HSTROPN, CMP #### [facility] [address] [address] [address] Debra BlakeGlucose [Mass/Vol]106 mg/kLRajsiv25-294Cxu [facility] Comment on above:Performed By: #### HSTROPN, CMP #### [facility] [address] [address] [address] Debra BlakePotassium [Moles/Vol]2.8 mmol/LCritically low3.5-5.1The [facility] HospitalComment on above:Result Comment: Test Repeated. Critical Value Verified Performed By: #### HSTROPN, CMP #### [facility] [address] [address] [address] Debra BlakeProtein [Mass/Vol]6.8 g/dLNormal6.4-8.2The [facility] Comment on above:Performed By: #### HSTROPN, CMP #### [facility] [address] [place] [address] Dr. Debra BlakeSodium [Moles/Vol]123 mmol/LCritically jgy590-884Ham [facility] HospitalComment on above:Result Comment: Test Repeated. Critical Value Verified Performed By: #### HSTROPN, CMP #### [facility] [address] [place] [address] Dr. Debra BlakeUrea nitrogen [Mass/Vol]29.0 mg/dLCritically high7.0-18.0The [facility] HospitalComment on above:Performed By: #### HSTROPN, CMP #### [facility] [address] [place] [address] Dr. Debra Hurst nitrogen/Creatinine [Mass ratio]10.9 mg/mgNormalThe [facility] HospitalComment on above:Performed By: #### HSTROPN, CMP #### [facility] [address] [place] [address] Dr. Debra BlakePhosphate [Mass/volume] in Serum or PlasmaOrdered By: Hong Jewell on 94-18-0570Hplgpiqnw [Mass/Vol]3.6 mg/dL2.5-4.6FUniversity Hospitals Geauga Medical CenterPlatelet poor plasma international normalized ratio (INR) by coagulation assay (relatOrdered By: Hong Jewell on 01-47-6471GWB Coag (PPP) [Relative time]1.1 {INR}[facility] CenterComment on above: INR Therapeutic Range A) Pre- [...] Serum or PlasmaOrdered By: Hong Jewell on 78-31-2012Rhgepdq [Mass/Vol] 6.2 g/dL6.1-7.9[facility] Barber[facility] Campuserum ionized calcium measurement using ion specific electrode (mass/volume)Ordered By: Hong Jewell on 73-41-3281Swijedx.ionized ISE [Mass/Vol]3.5 mg/dL4.5-5.6FUniversity Hospitals Geauga Medical CenterComment on above:Performed at: [facility] [id number] Chief Solution Architect: Sanford Mehta PhD, Phone: [phone] or plasma alanine aminotransferase measurement without P-5'-P (enzymatic activiOrdered By: Hong Jewell on 42-37-1653KWJ No additional P-5'-P [Catalytic activity/Vol]8 U/Y17-29BzmbczjppSumma Health Barberton Campuserum or plasma albumin/globulin mass ratioOrdered By: Hong Jewell on 12-04-2021 Albumin/Globulin [Mass ratio]0.9 {ratio}[facility] Campuserum or plasma alkaline phosphatase measurement (enzymatic activity/volume)Ordered By: Hong Jewell on 49-48-9792QNI [Catalytic activity/Vol]51 U/L32-92 [facility] Campuserum or plasma aspartate aminotransferase measurement (enzymatic activity/volume)Ordered By: Hong Jewell on 78-63-6536OLB [Catalytic activity/Vol]15 U/V05-94MhpzbgrdrSumma Health Barberton Campuserum or plasma creatine kinase MB (CKMB)/total creatine kinase (CK) ratio by calculaOrdered By: Hong Jewell on 64-36-5202OU.MB Calc [Catalytic fraction]1.4 %0.00-2.50[facility] Campuserum or plasma creatine kinase MB measurement (mass/volume)Ordered By: Hong Jewell on 43-61-7812QT.MB [Mass/Vol]2.0 ng/mL0.6-6.3FOhioHealth Hardin Memorial Hospitalerum or plasma non-glucuronidated bilirubin measurement (mass/volume)Ordered By: Hong Jewell on 41-82-0771Hmetxuzqb.indirect [Mass/Vol]0.6 mg/dL [facility] Campuserum or plasma prealbumin measurement (mass/volume)Ordered By: Hong Jewell on 06-62-7986Wjvfgrhmit [Mass/Vol] 15.8 mg/dL18.0-38.0[facility] Campuserum or plasma total bilirubin measurement (mass/volume)Ordered By: Hong Jewell on 72-64-0325Eesusfgbc [Mass/Vol]0.8 mg/dL0.3-1.2FUniversity Hospitals Geauga Medical Center TROPONIN, HIGH SENSITIVITYon 88-34-3843UPHQNG88.0 pg/mLCritically high4.0-51.3 The [facility] HospitalComment on above:Result Comment: CUT-OFF POINTS HAVE BEEN ESTABLISHED BASED ON THE FOURTH UNIVERSAL DEFINITIONS OF MYOCARDIAL INFARCTION. THE UPPER REFERENCE LIMIT (URL) OF TROPONIN, DEFINED THE 99TH PERCENTILE OF cTnI DISTRIBUTION IN A REFERENCE POPULATION, HAS BEEN CONFIRMED THE DECISION THRESHOLD FOR [place] DIAGNOSIS.Performed By: #### HSTROPN, CMP #### [facility] [address] [place] [address] Dr. Debra RappTROP107.8 pg/mLCritically high4.0-51.3The [facility] Comment on above:Result Comment: CUT-OFF POINTS HAVE BEEN ESTABLISHED BASED ON THE FOURTH UNIVERSAL DEFINITIONS OF MYOCARDIAL INFARCTION. THE UPPER REFERENCE LIMIT (URL) OF TROPONIN, DEFINED THE 99TH PERCENTILE OF cTnI DISTRIBUTION IN A REFERENCE POPULATION, HAS BEEN CONFIRMED THE DECISION THRESHOLD FOR [place] DIAGNOSIS.Performed By: #### HSTROPN #### [facility] [address] [place] [address] Dr. Debra Goldstein 16-83-9343XZK4.321 uIU/mLCritically low0.358-3.740The [facility] HospitalComment on above:Performed By: #### HSTROPN, CMP #### [facility] [address] [address] [address] Debra Haji DL <= 0.005 mIU/L QnOrdered By: Hong Jewell on 35-97-9972VFG Qn0.39 m[IU]/L0.45-5.33[facility] CenterUrine lactic acid measurementOrdered By: Hong Jewell on 72-86-7438Fohafnn (U) [Moles/Vol]1.3 mmol/L0.5-2.2FUniversity Hospitals Geauga Medical CenterCBC AUTO DIFFon 25-00-4588QBVV #0.1 103/ulNormal0.0-0.1The [facility] HospitalComment on above: Performed By: #### HSTROPN #### [facility] [address] [address] [address] Debra BlakeBasophils/100 WBC (Bld)0.6 %Normal0.2-2.0[facility] Comment on above:Performed By: #### HSTROPN #### [facility] [address] [address] [address] Debra iVllasenor #0.1 103/ulNormal0.0-0.7The [facility] HospitalComment on above: Performed By: #### HSTROPN #### [facility] [address] [address] [address] Debra Gallegoosinophils/100 WBC (Bld)1.5 %Normal0.9-7.0[facility] Comment on above:Performed By: #### HSTROPN #### [facility] [address] [address] [address] Debra Gallegorythrocyte distribution width (RBC) [Ratio]14.6 %Hxyzzm59.0-15.0 [facility] HospitalComment on above:Performed By: #### HSTROPN #### [facility] [address] [address] [address] Debra BlakeHematocrit (Bld) [Volume fraction]27.4 %Critically low36.0-48.0 The [facility] HospitalComment on above:Performed By: #### HSTROPN #### [facility] [address] [place] [address] Dr. eDbra BlakeHemoglobin (Bld) [Mass/Vol]9.7 g/dLCritically low12.0-16.0The [facility] HospitalComment on above:Performed By: #### HSTROPN #### [facility] [address] [place] [address] Dr. Debra Bay #0.08 10e3/ulCritically high0.00-0.03The [facility] Comment on above:Performed By: #### HSTROPN #### [facility] [address] [place] [address] Dr. Debra Bay %0.9 %Critically high0.0-0.5The [facility] HospitalComment on above:Performed By: #### HSTROPN #### [facility] [address] [place] [address] Dr. Debra Early #1.9 103/ulNormal1.2-3.8The [facility] HospitalComment on above:Performed By: #### HSTROPN #### [facility] [address] [place] [address] Dr. Debra Childshocytes/100 WBC (Bld)20.9 %Fnqbcq34.5-60.0The [facility] HospitalComment on above:Performed By: #### HSTROPN #### [facility] [address] [place] [address] Dr. Debra ObrienUAL DIFF REQNONormalThe [facility] HospitalComment on above: Performed By: #### HSTROPN #### [facility] [address] [place] [address] Dr. Debra Elizondo (RBC) [Entitic mass]34.5 pgCritically high26.7-34.0The [facility] HospitalComment on above:Performed By: #### HSTROPN #### [facility] [address] [place] [address] Dr. Debra RecioHC (RBC) [Mass/Vol]35.4 g/dLCritically high29.9-35.2The [facility] HospitalComment on above:Performed By: #### HSTROPN #### [facility] [address] [place] [address] Dr. Debra eRcioV (RBC) [Entitic vol]97.5 mWSbrhvf25.0-99.0The [facility] HospitalComment on above:Performed By: #### HSTROPN #### [facility] [address] [place] [address] Dr. Debra Hallman #1.3 103/ulCritically high0.3-0.8The [facility] Comment on above:Performed By: #### HSTROPN #### [facility] [address] [place] [address] Dr. Debra Spauldingocytes/100 WBC (Bld)14.3 %Critically high1.7-12.0The [facility] HospitalComment on above:Performed By: #### HSTROPN #### [facility] [address] [place] [address] Dr. Debra Valdovinos #5.5 103/ulNormal1.4-6.5The [facility] HospitalComment on above:Performed By: #### HSTROPN #### [facility] [address] [place] [address] Dr. Debra Alyutrophils/100 WBC (Bld)61.8 %Xxdmau11.0-75.0The [facility] HospitalComment on above:Performed By: #### HSTROPN #### [facility] [address] [place] [address] Dr. Debra Goff mean volume (Bld) [Entitic vol]9.2 fLCritically low 9.5-13.5The [facility] HospitalComment on above:Performed By: #### HSTROPN #### [facility] [address] [place] [address] Dr. Debra OchoaT187 103/xmGadezw998-542Ypp [facility] HospitalComment on above: Performed By: #### HSTROPN #### [facility] [address] [place] [address] Dr. Debra BlakeRBC2.81 106/ulCritically low4.20-5.40The [facility] HospitalComment on above:Performed By: #### HSTROPN #### [facility] [address] [place] [address] Dr. Debra BlakeWBC8.9 103/ulNormal4.0-11.0The [facility] HospitalComment on above: Performed By: #### HSTROPN #### [facility] [address] [place] [address] Dr. Debra BlakeCovid-19 PCR (CVDTB)on 20-56-0132YFLK-CoV-2 (COVID-19) RNA YVONNE+probe Ql (Unsp spec)Not detectedNormalNOT DETECTEDThe [facility] Comment on above:Result Comment: When diagnostic testing [...] for this test is supported by the [employer] of Health and Human Service's declaration that [...] longer be used).Performed By: #### CVDTBH #### [facility] [address] [place] [address] Dr. Richardson ChangEChristos URINE PROFILEon 86-12-0322Hipadjyis Ql (U)NegativeNormal NEGATIVEThe [facility] HospitalComment on above:Performed By: #### STEPHANE, ERUR #### [facility] [address] [address] [address] Debra Centenoarity (U)CLEARNormalCLEARLutheran HospitalComment on above: Performed By: #### STEPHANE, ERUR #### [facility] [address] [address] [address] Debra Pedroza (U)LT. YELLOWNormalYELLOWLutheran HospitalComment on above:Performed By: #### STEPHANE, ERUR #### [facility] [address] [address] [address] Debra Francisco micrscopic examination will be performed if indicated. NormalLutheran HospitalCommclaren bay special care hospital on above:Performed By: #### STEPHANE, ERUR #### [facility] [address] [address] [address] Debra BlakeGlucose Ql (U)NegativeNormalNEGATIVELutheran HospitalComment on above:Performed By: #### STEPHANE, ERUR #### [facility] [address] [address] [address] Debra BlakeHemoglobin Ql (U)TRACE-LYSEDAbnormalNEGUniversity Hospitals Portage Medical Center on above:Performed By: #### STEPHANE, ERUR #### [facility] [address] [address] [address] Debra BlakeKetones Ql (U)NegativeNormalNEGATIVELutheran HospitalComment on above:Performed By: #### STEPHANE, ERUR #### [facility] [address] [address] [address] Debra BlakeLEUKOCYTESMODERATEAbnormalNEGATIVELutheran HospitalCommclaren bay special care hospital on above:Performed By: #### STEPHANE, ERUR #### [facility] [address] [address] [address] Debra BlakeNitrite Ql (U)NegativeNormalNEGATIVELutheran HospitalComment on above:Performed By: #### STEPHANE, ERUR #### [facility] [address] [place] [address] Dr. Debra Laureano (U)6.0 [pH]Normal5-9The [facility] HospitalComment on above: Performed By: #### STEPHANE ERUR #### [facility] [address] [place] [address] Dr. Debra BlakeSPEC GRAVITY1.180Dlmocz0.005-<=1.025The [facility] HospitalComment on above:Performed By: #### STEPHANE, ERUR #### [facility] [address] [place] [address] Dr. Debra Diamond PROTEINTRACENormalNEGATIVE/ TRACEThe [facility] HospitalComment on above:Performed By: #### STEPHANE, ERUR #### [facility] [address] [place] [address] Dr. Debra Frey MICRO INDINDICATEDNormalThe [facility] HospitalComment on above: Performed By: #### STEPHANE, ERUR #### [facility] [address] [place] [address] Dr. Debra BlakeUrobilinogen Qn (U)0.2 {Pascale'U}/dLNormal0.2 - 1.0The [facility] HospitalComment on above:Performed By: #### STEPHANE, ERUR #### [facility] [address] [place] [address] Dr. Debra BlakeMAGNESIUMon 34-21-7840Bufrgnxcl [Mass/Vol]0.4 mg/dLCritically low 1.8-2.4The [facility] HospitalComment on above:Performed By: #### MG #### [facility] [address] [place] [address] Dr. Debra BlakePROF 14(COMP METB)on 25-52-6726Dcteuev [Mass/Vol]3.2 g/dL Critically low3.4-5.0The [facility] HospitalComment on above:Performed By: #### HSTROPN, CMP #### [facility] [address] [place] [address] Dr. Debra BlakeAlbumin/Globulin [Mass ratio]0.8 {ratio}NormalThe [facility] HospitalComment on above:Performed By: #### HSTROPN, CMP #### [facility] [address] [place] [address] Dr. Debra ChungP [Catalytic activity/Vol]64 U/INtgrox98-434Wjr [facility] HospitalComment on above:Performed By: #### HSTROPN, CMP #### [facility] [address] [place] [address] Dr. Debra ChungT [Catalytic activity/Vol]11 U/LCritically iqp29-23Ajx [facility] HospitalComment on above:Performed By: #### HSTROPN, CMP #### [facility] [address] [place] [address] Dr. Debra Harleyon gap [Moles/Vol]19.5 mmol/LNormalThe [facility] Comment on above:Performed By: #### HSTROPN, CMP #### [facility] [address] [place] [address] Dr. Debra BlakeAST [Catalytic activity/Vol]19 U/XDtjhip91-04Lqc [facility] HospitalComment on above:Performed By: #### HSTROPN, CMP #### [facility] [address] [place] [address] Dr. Debra BlakeBilirubin [Mass/Vol]0.5 mg/dLNormal0.2-1.0The [facility] Comment on above:Performed By: #### HSTROPN, CMP #### [facility] [address] [place] [address] Dr. Debra BlakeCalcium [Mass/Vol]5.8 mg/dLCritically low8.5-10.1The [facility] HospitalComment on above:Performed By: #### HSTROPN, CMP #### [facility] [address] [place] [address] Dr. Debra BlakeChloride [Moles/Vol]88 mmol/LCritically tug16-272Tlo [facility] HospitalComment on above:Performed By: #### HSTROPN, CMP #### [facility] [address] [address] [address] Debra BlakeCO2 [Moles/Vol]19.7 mmol/LCritically low21.0-32.0The [facility] HospitalComment on above:Performed By: #### HSTROPN, CMP #### [facility] [address] [address] [address] Debra BlakeCreatinine [Mass/Vol]2.77 mg/dLCritically high0.55-1.02The [facility] HospitalComment on above:Performed By: #### HSTROPN, CMP #### [facility] [address] [place] [address] Dr. Debra GallegoGFR-AF DNNJNNUT34 mL/min/1.36z9Fsdfxaxzqo low>=60The [facility] HospitalComment on above:Performed By: #### HSTROPN, CMP #### [facility] [address] [place] [address] Dr. Debra GallegoGFR-NON AF HYGFHZPL18 mL/min/1.17i1Bgunkpovor low>=60The [facility] HospitalComment on above:Performed By: #### HSTROPN, CMP #### [facility] [address] [place] [address] Dr. Debra BlakeGlobulin (S) [Mass/Vol]3.9 g/dLNormalThe [facility] HospitalComment on above:Performed By: #### HSTROPN, CMP #### [facility] [address] [place] [address] Dr. Debra BlakeGlucose [Mass/Vol]99 mg/iDGewpiu18-421Zux [facility] Comment on above:Performed By: #### HSTROPN, CMP #### [facility] [address] [place] [address] Dr. Debra BlakePotassium [Moles/Vol]3.2 mmol/LCritically low3.5-5.1The [facility] HospitalComment on above:Performed By: #### HSTROPN, CMP #### [facility] [address] [place] [address] Dr. Debra BlakeProtein [Mass/Vol]7.1 g/dLNormal6.4-8.2The [facility] Comment on above:Performed By: #### HSTROPN, CMP #### [facility] [address] [place] [address] Dr. Debra BlakeSodium [Moles/Vol]124 mmol/LCritically oqq920-423Syn [facility] HospitalComment on above:Performed By: #### HSTROPN, CMP #### [facility] [address] [place] [address] Dr. Debra BlakeUrea nitrogen [Mass/Vol]28.0 mg/dLCritically high7.0-18.0The [facility] HospitalComment on above:Performed By: #### HSTROPN, CMP #### [facility] [address] [place] [address] Dr. Debra BlakeUrea nitrogen/Creatinine [Mass ratio]10.1 mg/mgNormalThe [facility] HospitalComment on above:Performed By: #### HSTROPN, CMP #### [facility] [address] [place] [address] Dr. Debra Metz, HIGH SENSITIVITYon 24-39-9858VMTANZ32.9 pg/mLCritically high4.0-51.3The [facility] HospitalComment on above:Result Comment: CUT-OFF POINTS HAVE BEEN ESTABLISHED BASED ON THE FOURTH UNIVERSAL DEFINITIONS OF MYOCARDIAL INFARCTION. THE UPPER REFERENCE LIMIT (URL) OF TROPONIN, DEFINED THE 99TH PERCENTILE OF cTnI DISTRIBUTION IN A REFERENCE POPULATION, HAS BEEN CONFIRMED THE DECISION THRESHOLD FOR [place] DIAGNOSIS.Performed By: #### HSTROPN, CMP #### [facility] [address] [place] [address] Dr. Debra BlakeHSTROP102.0 pg/mLCritically high4.0-51.3TAultman [facility] Comment on above:Result Comment: CUT-OFF POINTS HAVE BEEN ESTABLISHED BASED ON THE FOURTH UNIVERSAL DEFINITIONS OF MYOCARDIAL INFARCTION. THE UPPER REFERENCE LIMIT (URL) OF TROPONIN, DEFINED THE 99TH PERCENTILE OF cTnI DISTRIBUTION IN A REFERENCE POPULATION, HAS BEEN CONFIRMED THE DECISION THRESHOLD FOR [place] DIAGNOSIS.Performed By: #### HSTROPN, CMP #### [facility] [address] [address] [address] Debra Moore MICROSCOPIC ONLYon 45-38-2001CZJIAZBXHIXOAOnzmpmxdKLQB SEEN [facility] on above:Performed By: #### STEPHANE, ERUR #### [facility] [address] [address] [address] Debra Reyna identified Cx Nom (U)INDICATEDNormalThMercy Health St. Elizabeth [facility] HospitalCommclaren bay special care hospital on above:Performed By: #### STEPHANE, ERUR #### [facility] [address] [address] [address] Debra Willett SEENNormalNONE SEENMemorial Health System [facility] on above:Performed By: #### STEPHANE, ERUR #### [facility] [address] [place] [address] Dr. Debra Yuystals LM Nom (Urine sed)NONE SEENNormalNONE SEENMemorial Health System [facility] on above:Performed By: #### STEPHANE, ERUR #### [facility] [address] [address] [address] Richardson ChangEpithelial cells LM Ql (Urine sed)FEWAbnormalNONE SEEN /RAREThe [facility] on above:Performed By: #### STEPHANE, ERUR #### [facility] [address] [address] [address] Debra FreemanCOUSNONE SEENNormalNONE SEENMemorial Health System [facility] on above:Performed By: #### STEPHANE, ERUR #### [facility] [address] [address] [address] Debra BlakeBkqgsRXI7-7Hvjcjhyv4-9Aay [facility] on above:Performed By: #### STEPHANE, ERUR #### [facility] [address] [address] [address] Debra BlakeWBC (U) [#/Vol]/uLAbnormalNONE SEENThe [facility] HospitalComment on above:Performed By: #### MARIO CALDERÓN #### [facility] [address] [place] [address] Dr. Debra BlakeXR CHEST 1 Von 35-61-6417LK CHEST 1 VEXAMINATION: XR CHEST 1 V HISTORY: Dizziness COMPARISON: Chest x-rays 02/19/2015 TECHNIQUE: Portable chest FINDINGS: The lung parenchyma is free of consolidation or infiltrate. No pneumothorax or pleural effusion. The cardiac, mediastinal and hilar contours are normal. The visualized osseous structures exhibit no gross abnormality. IMPRESSION: No acute cardiopulmonary abnormality. Electronically authenticated by: CODY ALEXANDER Date: 2021-12-03 19:03[facility] Vital Signs Date TimeVital SignValuePerforming XjfmbiantHzogbkzv92-69-4520 16:32-4092NqN2% (BldA) [Mass fraction]91 %[facility] MED[facility] CENTERMANLake County Memorial Hospital [facility] West HospitalComment on above:Performed By: #### ABG ####[facility] ([id number])[address], [place] [id number] 20:56-4785YfX1% (BldA) [Mass fraction]99 % [facility] CENTERMANLake County Memorial Hospital - West HospitalComment on above:Performed By: #### VBG ####[facility] ([id number])[address] [place] [address] 06-25-2024 04:20-0625MjU0% (BldA) [Mass fraction]100 %[facility] REHMANLake County Memorial Hospital - West HospitalComment on above:Performed By: #### ABG ####[facility] ([id number])[address], [place] [id number] 14:41-0400 SaO2% (BldA) [Mass fraction]100 %[facility] MED[facility] CENTERMANProDoctors Hospital HospitalComment on above:Performed By: #### ABG ####[facility] ([id number])[address], [place] [id number] 04:59-0750PrC2% (BldA) [Mass fraction]100 %[facility] REHMANProMedica Lynn HospitalComment on above:Performed By: #### ABG ####[facility] ([id number])2 [facility] [place] [address] 06-22-2024 05:02-2928YkV5% (BldA) [Mass fraction]97 %[facility]UCIANA REHMANProMedica Lynn HospitalComment on above:Performed By: #### ABG ####[facility] ([id number])[address], [place] [id number] 05:57-0400 SaO2% (BldA) [Mass fraction]97 %LUCIANA REHMANProMedica Lynn HospitalComment on above:Performed By: #### ABG ####[facility] ([id number])[address] [id number] 04:22-6060WxW3% (BldA) [Mass fraction]100 %LUCIANA REHMANProMedica Lynn HospitalComment on above:Performed By: #### ABG ####[facility] ([id number])[address] [place] [address] 06-16-2024 04:39-4637XmN0% (BldA) [Mass fraction]94 %LUCIANA REHMANProMedica Lynn HospitalComment on above:Performed By: #### ABG ####[facility] ([id number])[address], [place] [id number] 03:45-0500 SaO2% (BldA) [Mass fraction]97 %[facility]UCIANA REHMANProMedica Lynn HospitalComment on above:Performed By: #### ABG ####[facility] ([id number])[address] [facility] [address]30[address]7-65-8211 16:44-0089FgX1% (BldA) [Mass fraction]97 %[facility] HospitalComment on above:Performed By: #### ABG ####[facility] ([id number])2 [facility] [place] [address] 06-14-2024 12:03-9834XtC1% (BldA) [Mass fraction]96 %[facility] HospitalComment on above:Performed By: #### VBG ####[facility] ([id number])[address], [place] [id number] 20:05-0500 SaO2% (BldA) [Mass fraction]88 %[facility] HospitalComment on above:Performed By: #### VBG ####[facility] ([id number])[address], [place] 7177557-68-7688 14:41-0400Diastolic blood gsqaqedl652 mm[Hg][facility]09-18-2024 14:41-0400Heart rate86 /min Katie Velasquez APRN Work Phone: [facility]09-18-2024 14:41-0400 Systolic blood xwwyecvl385 mm[Hg][facility]09-18-2024 14:35-0400Body proxdw727.1 cmSt. Mary'S Medical Center09-18-2024 14:35-0400Body mass index (BMI) [Ratio]28.3 kg/a5AmfpvtqdwSt. Mary'S Medical Center09-18-2024 14:35-0400Body vsflqmozvhw03 [degF][facility]09-18-2024 14:35-0400Body .16 kgSt. Mary'S Medical Center 12-27-2023 14:35-0400Heart lxoz560 /[facility] 12-27-2023 14:35-0400Respiratory rate20 /[facility] 12-27-2023 14:35-8641WhF2% (BldA) [Mass fraction]99 %[facility]06-20-2024 14:43-0400Body uerlgu144.1 cmSt. Mary'S Medical Center 09-28-2023 14:43-0400Body mass index (BMI) [Ratio]25.6 kg/y2PxtlcequwSt. Mary'S Medical Center06-20-2024 14:43-0400Body ozweaq10.85 kgSt. Mary'S Medical Center06-20-2024 14:43-0400Diastolic blood qquptags86 mm[Hg][facility]06-20-2024 14:43-0400Heart rate77 /minSt. Mary'S Medical Center06-20-2024 14:43-1927XpC4% (BldA) [Mass fraction]98 %[facility]06-20-2024 14:43-0400Systolic blood urldixrs493 mm[Hg][facility]12-06-2022 20:42-0500Diastolic blood ketqbvic94 mm[Hg]DO [employer] Work Phone: [phone] [place], [place] 7748512-06-2022 20:42-0500 Heart rate98 /minDO [employer] Work Phone: [phone] [place], [place] 7748512-06-2022 20:42-0500 Respiratory rate18 /minDO [employer] Work Phone: [phone] [place], [place] 7748512-06-2022 20:42-0500 SaO2% (BldA) [Mass fraction]99 %[employer] Work Phone: [phone] [place], [place] 7748512-06-2022 20:42-0500 Systolic blood vmbjpvmi302 mm[Hg]DO [employer] Work Phone: [phone]12-06-2022 18:02-0500 Body pjrlyspnjsb19 [degF]DO [employer] Work Phone: [phone] [place], [place] 7748512-06-2022 17:59-0500 Body qckteb952.56 cmDO [employer] Work Phone: [facility]12-06-2022 17:59-0500 Body otzzcu69.3 kgDO [employer] Work Phone: [facility]12-06-2022 17:40-0500 Body duinnu522.1 cmAbdul Vaibhav Other [employer] Other 12-06-2022 17:40-0500Body mass index (BMI) [Ratio] 25.39 kg/y9Rhwzo Vaibhav Other [employer] Other 12-06-2022 17:40-0500Body rzyldxoteuc61.6 [degF]William Vaibhav Other [employer] Other 12-06-2022 17:40-0500Body .22 kgAbdul Vaibhav Other [employer] Other 12-06-2022 17:40-0500Diastolic blood uxeevjfi023 mm[Hg]William Vaibhav Other [employer] Other 12-06-2022 17:40-0500Respiratory rate18 /minAbdul Vaibhav Other [employer] Other 12-06-2022 17:40-6351AuS5% (BldA) [Mass fraction]98 % William Vaibhav Other [employer] Other 12-06-2022 17:40-0500Systolic blood nnheiyzn304 mm[Hg] William Vaibhav Other [employer] Other [id number] 11:52-0400Body [degF]DO [employer] Work Phone: [facility]09-02-2022 11:52-0400 Diastolic blood cwpculat17 mm[Hg]DO [employer] Work Phone: [phone] [place], [place] 7748509-02-2022 11:52-0400 Heart rate77 /Allan Raymond [employer] Work Phone: [phone]09-02-2022 11:52-0400 Respiratory rate16 /minDO Segundo [employer] Work Phone: [phone] [place], [place] 7748509-02-2022 11:52-0400 SaO2% (BldA) [Mass fraction]99 %DO [employer] Work Phone: [phone]09-02-2022 11:52-0400 Systolic blood tvwrdpyy196 mm[Hg]DO [employer] Work Phone: [phone] [place], [place] 4333409-02-2022 06:00-0400 Body ixlvqa51 kgDO [employer] Work Phone: [phone]08-31-2022 14:53-0400 Body ujivwf589.1 cmDO [employer] Work Phone: [phone] [place] [address] Encounters Encounter DateEncounter TypeCare ProviderFacilityStart: 20-29-7200umuaahixopPQB FAVIO A LEHMANNFacility:[facility]vueStart: 12-18-2024 End: 11-50-3845xfwjahtohcAMQ FAVIO Alvarado LEHMANNFacility:[facility]Start: 21-52-9282cbqixnemgnWWN FAVIO LEANNFacility:[facility]vueStart: 09-17-2024 End: 67-91-9624Kistzacnzp and management of inpatientMichael Frings [facility]ustart: 09-12-2024 End: 50-63-2967jhyrenfzvzPWK C MILLERMetroHealth Parma Medical Centertart: 09-09-2024 End: 29-42-0854Ytkgltfxu encounterJerardo Ruth IT PROJECT LEAD Work Phone: NORS FMStart: 08-28-2024 End: 33-52-9447Ywufgdlxf Result EncounterKiairam Stone Ruth IT PROJECT LEAD Work Phone: NOMS External Department UnsolicitedStart: 08-28-2024 End: 54-23-1279Vzuwwvozb Result EncounterKiairam Rtuh IT PROJECT LEAD Work Phone: NOMS External Department UnsolicitedStart: 08-26-2024 End: 32-69-0050Wmooiifnq encounterKiairam Ruth IT PROJECT LEAD Work Phone: NOMS CI FMStart: 08-16-2024 End: 65-88-8215Ujrndljlx encounterKiairam Ruth IT PROJECT LEAD Work Phone: NOMS CI FMStart: 07-26-2024 End: 80-81-6812Kvgumtihs encounterJerardo Ruth IT PROJECT LEAD Work Phone: NOMS CI FMStart: 07-09-2024 End: 78-78-0437zfklipnhdpWqoz A Noori MD Work Phone: [facility] Sign InStart: 06-14-2024 [facility] Ambulatory PPGStart: 06-13-2024 End: 03-49-0504Wghjrejsnz and management of inpatientSCity Hospital HospitalStart: 06-13-2024 End: 25-31-3199wtvjnjxnlyMFJOTBX PROVIDERFacility:METROHealthStart: 06-13-2024 Non-patient / Non-visitJennifer Eva SYSTEMS OPERATOR Work Phone: [facility] GroupSwed[facility] Work Phone: Start: 33-43-7417Lfs-patient / Non-visitJennifer Locorbacher SYSTEMS OPERATOR Work Phone: [facility] Physician GroupSwedish [facility] Work Phone: Start: 06-12-2024 End: 36-83-1334txsgldzewvYvpjgbop Rohrbacher SYSTEMS OPERATOR Work Phone: [facility] Work Phone: start: 06-12-2024 End: 14-00-6637Whperdnq ReferredJennifer Locorbacher SYSTEMS OPERATOR Work Phone: [facility]-LAB Path Spec [facility]ias HospStart: 04-22-2024 End: 51-20-9015Odt-patient / Non-visitJenndaniel Adanrbacher SYSTEMS OPERATOR Work Phone: [facility] Work Phone: Start: 02-19-2024 End: 43-49-8902ysmtadnmdzJvhrlhgo Rohrbacher SYSTEMS OPERATOR Work Phone: [facility] Work Phone: Start: 02-19-2024 End: 40-57-5143Wtmtsjfh ReferredRaoulnnifer Locorbacher SYSTEMS OPERATOR Work Phone: [facility]-LAB Path Spec Machias HospStart: 12-27-2023 End: 24-08-2488avhxnesvntEsuaszlrjMercy Health – [facility] Work Phone: Start: 12-27-2023 End: 28-21-2583Prnhhln encounter procedureC[facility] Physician [facility] Work Phone: Start: 10-02-2023 End: 64-30-7914Mzhtzvosk encounterAbhijit Pink CMAProMedica Physicians RheumatologyStart: 09-28-2023 End: 53-43-1866bgxkrqrokfInwhoofrmMercy Health – [facility] Jewish Hospital Work Phone: Start: 09-28-2023 End: 42-39-7258Wzalqhl encounter procedureC[facility] Physician [facility] Work Phone: Start: 03-15-2022 End: 72-45-9024Uxczjrnmy department patient visitDO [facility] Work Phone: [facility]-Emergency RoomStart: 03-15-2022 End: 97-02-1571hoovhuxwhnWxzxu Vaibhav Other [place] Other Start: 15-35-0657Sxndfq outpatient visit 25 minutes William StevensSandra NephrologyStart: 12-19-2021 End: 67-95-1117lnwwcawzvnUSTOWKI D KATKOFacility:H5Yfrrv: 12-04-2021 End: 12-17-9564Djngizaesl and management of inpatientDO [employer] Work Phone: [facility]-[address] [place] [facility] Start: 12-03-2021 End: 39-53-8489fpompweonhAU UNIQUE Sher SMITHFacility:T7Cdrwv: 07-04-2017 End: 68-99-5191NuqcbozwzdERMPJCU PHYSICIANFacility:[facility]OSPITALtart: 05-02-2017 End: 20-55-7691NcoztbyfotWMDXYFX PHYSICIANFacility:[facility] Procedures DateProcedureProcedure DetailPerforming ClinicianStart: 83-31-8140Tzxufuqu screenJennifer RohrbacherComment on above:Order Comment: Transfuse now? Y Number of units to transfuse now? 1 Transfuse now? Y Number of units to transfuse now? 1Result Comment: PERFORMED BY: [facility] [address] [place] [address] PATHOLOGIST JEWEL HOLE GAUGER DENILSON COSTA M.D.Start: 59-36-3393BZL Sera Ruth IT PROJECT LEAD Work Phone: Start: 56-98-1618Yuscq chest X-rayDO [employer] Work Phone: Start: 22-08-0985YQ of abdomen and pelvis without contrastDO [employer] Work Phone: Start: 93-66-6440Tmqayhfgfxcwutz of bilateral kidneys DO [employer] Work Phone: Start: 03-63-4718AB of chest without contrastDO [employer] Work Phone: Measurement of occult blood in stool specimen using immunoassayDO [employer] Work Phone: Urine cultureDO [employer] Work Phone: Plan of Treatment DateCare ActivityDetailAuthorStart: 67-14-9364Iygdk BMI ScreeningAdult BMI ScreeningMemorial Health System SystemStart: 79-22-6086Xubpuzyvd vaccinationInfluenza VaccineMemorial Health System SystemStart: 07-17-2024 End: 33-29-2788Mwpxhcu encounter qqjpnwzuy72/09/2025 2:30 PM EDT Office Visit [facility] [address] [place] [address] [address] [place] [address] Rosailnda Nathan, DO [address] [facility], [place] [address] [facility] Hospitaltart: 36-02-8969Ncqrq cultureSt. Mary'S Medical Center Start: 47-72-8054Nsgisumb identified in Urine by CultureUrine CultureSumma Health Barberton Campustart: 15-75-5620Vlmxcuh referralKindred Hospital Lima Work Phone: Start: 15-64-4921Dbslhokax vaccinationInfluenza VaccineSwain Community Hospitaltart: 41-31-8903Umscema [facility] Work Phone: Start: 04-19-8001UjlaehbhtChildren'S Hospital For Rehabilitation Work Phone: Start: 84-01-0763Myirxpon to urologistBarnesville Hospital Ctr Work Phone: Start: 95-91-2150Hkjlabxl to cardiologistBarnesville Hospital Ctr Work Phone: Start: 73-75-9900Whbaoccb to senior online marketing manager [facility] Work Phone: Start: 94-78-6355Pimuwbvqxkuowh of prophylactic treatmentChildren'S Hospital For Rehabilitation Work Phone: Start: 64-90-7844Rraufblh acid measurementChildren'S Hospital For Rehabilitation Work Phone: Start: 20-46-5395Jkufgusc to nephrologistBarnesville Hospital Ctr Work Phone: Start: 04-62-8734Dwhyrmtx to Social ServicesBarnesville Hospital Ctr Work Phone: Start: 33-73-5891Vcdbkqoy admissionBarnesville Hospital Ctr Work Phone: Start: 14-13-9450Qkalxmjkrcuggm of varicella zoster vaccineZoster (Shingles) Vaccine (1 of 2)[facility] SystemStart: 28-91-5380Zifzozlnj for malignant neoplasm of cervixPap SmearProKettering Memorial Hospital SystemStart: 96-10-6178HFqS,Tdap and Td Vaccines (1 - Tdap)DTaP,Tdap and Td Vaccines (1 - Tdap)[facility] SystemStart: 46-24-9457Asfse BMI Screening Adult BMI ScreeningMemorial Health System SystemStart: 89-71-6854Zqzhndfpvj Screening Depression ScreeningMemorial Health System SystemStart: 79-85-3746Avqgeie Screening Tobacco ScreeningTriHealth McCullough-Hyde Memorial HospitalBlood chemistryBarnesville Hospital Ctr Work Phone: Comprehensive metabolic 2000 panel - Serum or Plasma [facility] Medical CenterMG Breast - bilateral DiagnosticSt. Mary'S Medical CenterPatient EducationHigh Blood Pressure [facility] Work Phone: Patient referralBarnesville Hospital Ctr Work Phone: Phosphatidylethanol [Mass/volume] in [facility] Work Phone: Thiamine [Moles/volume] in [facility] Work Phone: US Breast - left limitedH[facility] Payers DatePayer CategoryPayerPolicy [id number]-pay2024MedicaidAMERIHEALTH CARITAS MEDICAID Member Subscriber Plan / Payer (Effective 2023-Present) Name: Orestes Alvares Relation to Subscriber: Self Name: Orestes Alvares Payer ID: Not on file Group ID: Not on file Type: Not on file Address: [address] [place] [id number] [id number] Health [place] [id number]ggq [id number]-[id number]-588h-[id number] 2..1.301665.3.57[id number] 2..1.947341.3.57[id number] 2..1.622967.3.57[id number] 2..1.952871.3.57[id number] 2..1.618018.3.57[id number] 2.16.840.1.629185.3.57[id number] 2.16.840.1.451054.3.57[id number] 2.16.840.1.977338.3.57[id number] 2.16.840.1.685447.3.57[id number] 2.16.840.1.679858.3.57[id number] 2.16.840.1.547967.3.57[id number] 0xoxzplc-8729-48l134e3-9h87-67[id number] 2.16.840.1.0[id number] 2.16.840.1.589396.3.579.2.531 [id number] 2.16.840.1.594673.3.579.2.531 Social History DateTypeDetailFacilityStart: 12-08-2021 End: 85-28-8604Qnsslay smoking status NHISSmoker (finding)[facility] Campustart: 88-73-5746Cbe Assigned At BirthFeSelect Medical OhioHealth Rehabilitation Hospitaltart: 22-65-3563Mca Assigned At [facility] CenterNosaint [facility] Campanja Other Start: 11-13-2014 End: 97-52-4604MwlIljzvv (finding)[facility]S Medical CenterTobacco smoking status NHISTobacco smoking consumption unknownProMedica Health System Start: 10-59-2098Ruhawhr of Social functionProMedica Health SystemChildcare UnknownProMedica Health SystemStart: 78-24-5379Hrr assigned at birthNot on file [facility] Goals DatePatient GoalDesired Activity/StatePersonal health goalComment on above: Evaluation of progress towards goal: Progress towards discharge Functional Status EsclZxyfbyfriqUzmrtlKgxwlwxs16-84-0957Xjawirgmvz statusPatient is Progressing Toward [facility] Work Phone: Mental Status VkxfVvmphtuglmIxjzvwOmahrege84-54-8864Bmsdxqfpk functionCognitive Status Patient at [facility] Work Phone: Clinical Notes 12-04-2021 to 09-09-2024 Note Date & VfvrMfagSdodimcs34-58-0914 Telephone encounter Note* Telephone Encounter - Jerardo Ruth NP - 09/09/2024 3:28 PM EDT Requested Prescriptions Signed Prescriptions Disp Refills HYDROcodone-acetaminophen ([place]) 5-325 MG tablet 120 tablet 0 Sig: Take 1 tablet by mouth every 6 (six) hours if needed for severe pain Authorizing Provider: JERARDO RUTH [facility] HealthcareVuizzldfia88-28-4525 Miscellaneous Notes* Telephone Encounter - Jerardo Ruth NP - 09/09/2024 3:28 PM EDT Requested Prescriptions Signed Prescriptions Disp Refills HYDROcodone-acetaminophen ([place]) 5-325 MG tablet 120 tablet 0 Sig: Take 1 tablet by mouth every 6 (six) hours if needed for severe pain Authorizing Provider: JERARDO RUTH documented in this encounterThree Rivers HealthcareFswwnculzl69-01-2273 Telephone encounter Note* Telephone Encounter - Jerardo Ruth NP - 08/26/2024 4:52 PM EDT Requested Prescriptions Signed Prescriptions Disp Refills LORazepam (Ativan) 0.5 MG tablet 42 tablet 0 Sig: Take 1 tablet (0.5 mg) by mouth every 8 (eight) hours if needed for anxiety for up to 14 days Authorizing Provider: JERARDO RUTH [place] [address]Cbixkaflbo97-39-3693 Miscellaneous Notes* Telephone Encounter - Jerardo Ruth NP - 08/26/2024 4:52 PM EDT Requested Prescriptions Signed Prescriptions Disp Refills LORazepam (Ativan) 0.5 MG tablet 42 tablet 0 Sig: Take 1 tablet (0.5 mg) by mouth every 8 (eight) hours if needed for anxiety for up to 14 days Authorizing Provider: JERARDO RUTH documented in this encounterThree Rivers HealthcareFcqvfsorkg14-67-2575 Telephone encounter Note* Telephone Encounter - Jerardo Ruth NP - 08/16/2024 1:59 PM EDT Requested Prescriptions Signed Prescriptions Disp Refills LORazepam (Ativan) 1 MG tablet 30 tablet 0 Sig: Take 1 tablet (1 mg) by mouth Daily Give daily before HD on dialysis days Authorizing Provider: JERARDO RUTH [place] [address]Vpesymayvj02-57-7496 Miscellaneous Notes* Telephone Encounter - Jerardo Ruth NP - 08/16/2024 1:59 PM EDT Requested Prescriptions Signed Prescriptions Disp Refills LORazepam (Ativan) 1 MG tablet 30 tablet 0 Sig: Take 1 tablet (1 mg) by mouth Daily Give daily before HD on dialysis days Authorizing Provider: JERARDO RUTH documented in this encounterThree Rivers HealthcareAntfquwjdn65-30-6511 Telephone encounter Note* Telephone Encounter - Jerardo Ruth NP - 07/26/2024 11:49 AM EDT Requested Prescriptions Signed Prescriptions Disp Refills LORazepam (Ativan) 0.5 MG tablet 28 tablet 0 Sig: Take 2 tablets (1 mg) by mouth Daily for 14 days Give daily before HD on Mon, , Mon, , Monday. Authorizing Provider: JERARDO RUTH [facility] HealthcareIetmrpvtql40-98-6509 Miscellaneous Notes* Telephone Encounter - Jerardo Ruth NP - 07/26/2024 11:49 AM EDT Requested Prescriptions Signed Prescriptions Disp Refills LORazepam (Ativan) 0.5 MG tablet 28 tablet 0 Sig: Take 2 tablets (1 mg) by mouth Daily for 14 days Give daily before HD on Mon, , Mon, , Monday. Authorizing Provider: JERARDO RUTH documented in this encounterThree Rivers HealthcareKmniypqvrn42-93-2223 History of Present illness Narrative* Quintin Forman MD - 07/09/2024 2:59 PM EDT BAL cultures collected on 07/02 growing MRSA the results were finalized after patient's discharge. Currently patient is [facility] at [facility], which were contacted and patient caring staff was notified. documented in this encounterTriHealth McCullough-Hyde Memorial Hospital09-18-2024 Evaluation note* Diagnosis Onset Date Resolution Status Admit Date Alcohol abuse acuteSept2023 2:30pmBreast enlargementacuteSept2023 2:30pmBreast skin changesacuteSept2023 2:30pmFrequent fallsacute December 27, 2023 2:30pmGERD (gastroesophageal reflux disease)acuteSept2023 2:30pmHypertensionacuteSept2023 2:30pmHypomagnesemiaacute December 27, 2023 2:30pmHypothyroidacuteSept2023 2:30pmLupusacute December 27, 2023 2:30pmNoncomplianceacuteSept2023 2:30pm Paroxysmal atrial fibrillation with RVRacuteSept2023 2:30pm Rheumatoid arthritisacuteSept2023 2:30pmStress-induced cardiomyopathyacuteSept2023 2:30pmType 2 myocardial infarctionacute December 27, 2023 2:30pmWeaknessacuteSept2023 2:30pm [facility] Work Phone: 1(747) 597-751606-24-2024 Miscellaneous Notes* Telephone Encounter - Abhijit Pink CMA - 10/02/2023 9:55 AM EDT Called patient in regards to referral and we were to far of a drive. Advised patient to call referring provider to look for someone closer. documented in this encounterBarre City HospitalCAILabs06-24-2024 Telephone encounter Note* Telephone Encounter - Abhijit Pink CMA - 10/02/2023 9:55 AM EDT Called patient in regards to referral and we were to far [place] a drive. Advised patient to call referring provider to look for someone closer. [facility] CenterOne[facility] Virtual12-06-2022 Evaluation note* Encounter Date Diagnosis Assessment Notes [...] Advised to go to the emergency room. [employer] Other 09-02-2022 Discharge summary Author Hong Jewell [facility] December 10, 2021 7:47pmNote Date/TimeSept2021 1:26pm[place] [address] Discharge Summary Signed Patient: Orestes Alvares MR#: [id number] : 1965 Acct:[id number] Age/Sex: 56 / F Adm Date: 2 Loc: Room: [address] [place] [address]: Hong Jewell DO Copies to: [...] about 24 hours before bed opened up. [facility]. Here in the hospital she [...] ablation for that problem x2 at the [facility]. She had nephrology consultation. He felt [...] % (Auto) 62.7, Lymph % (Auto) 21.7, [place] % (Auto) 11.2, Eos % (Auto) 3.5, Baso % (Auto) 0.9, Neut # (Auto) 3.9, Lymph # (Auto) 1.4, [place] # (Auto) 0.7, Eos # (Auto) 0.2, Baso # (Auto) 0.1, Nucleated RBC % (auto) 0.0 12/09/21 18:15: Hgb 8.0 L, Hct 24.2 L 12/09/21 14:48: Double Strand DNA Ab <1 12/07/21 12:45: Ur Random Albumin 69.2, U Random Total Protein 51.3, U Sgwkg-1-Aimdcigx (%) 3.1, U Random u-4-Atxocpwq % 6.0, U Random b-Globulin % 13.5, [...] <Electronically signed by Hong Jewell DO> 12/10/211946 [facility] Work Phone: 1(298) 127-665809-02-2022 Progress note Author William Esposito [facility] December 10, 2021 11:31amNote Date/TimeSept2021 11:24[place] [address] Nephrology Progress Note Signed Patient: Orestes Alvares MR#: [id number] : 1965 Acct:[id number] Age/Sex: 56 / F Adm Date: 2 Loc: 4 Room: 9O5868-9 Type: ADM IN Attending Dr: Hong Jewell DO Copies to: ~ Date of Service: 12/10/2021 Subjective Subjective Narrative: Mrs. Alvares is a 56-year-old white female with history of COPD, smoker, alcohol abuse and hypothyroidism on levothyroxine who was transferred from [facility] on 12/04 for abnormal blood work [...] and 1 g of calciumbefore transfer to [facility]. 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 HEAD OF PHYSICS: Awake,Alert, following simple command Musculoskeletal: No joint [...] 324 Mg Tablet.) 324 mg PO Q48H [facility] Stop: 12/09/22 09:14 Last Admin: 12/09/21 [...] 750 Mg Tablet) 750 mg PO Q48H [facility] Stop: 12/11/21 09:01 Last Admin: 12/09/21 08:13 Dose: 750 mg Levothyroxine Sodium (Levothyroxine 50 Mcg Tablet) 50 mcg PO DAILY.0630 [facility] Stop: 12/05/22 06:29 Last Admin: 12/10/21 07:31 Dose: 50 mcg Metoprolol Succinate (Metoprolol Succinate 100 Mg Tab.Er.24h) 100 mg PO DAILY [facility] Stop: 12/04/22 17:43 Last Admin: 12/10/21 08:30 Dose: 100 mg Metoprolol Tartrate (Metoprolol Tartrate 5 Mg/5 Ml Vial) 5 mg IV-PUSH Q4H PRN PRN Reason: tachycardia Stop: 12/06/22 19:17 Nicotine (Nicotine Patch 21 Mg/24hr 1 Each Patch.Td24) 1 each TRANSDERML DAILY [facility] Stop: 12/06/22 08:59 Last Admin: 12/10/21 08:31 Dose: Not Given Omeprazole (Omeprazole 20 Mg Capsule.) 20 mg PO DAILY [facility] Stop: 12/05/22 08:59 Last Admin: 12/10/21 08:31 [...] signed by William Esposito MD> 12/10/21 1131 [facility] Work Phone: 1(349) 970-450109-01-2022 Progress note Author Hong Jewell [facility] December 09, 2021 4:10pmNote Date/TimeSept2021 4:10pm[place] [address] Hospitalist Progress Note Signed Patient: Orestes Alvares MR#: [id number] : 1965 Acct:[id number] Age/Sex: 56 / F Adm Date: 2 Loc: 4 Room: [address] [place] [address] Type: ADM IN Attending Dr: Hong Jewell [...] 40 Mg Tablet PO 12/10/22 07:59 DAILY.8A [facility] Magnesium Sulfate 2 gm in 50 mls [...] signed by Hong Jewell DO> 12/09/21 1610 [facility] Work Phone: 1(905) 536-568809-01-2022 Progress note Author William Esposito [facility] December 09, 2021 10:58amNote Date/TimeSept2021 10:58am[place] [address] Nephrology Progress Note Signed Patient: Orestes Alvares MR#: [id number] : 1965 Acct:[id number] Age/Sex: 56 / F Adm Date: 2 Loc: Room: [address] [place] [address] Type: ADM IN Attending Dr: Hong Jewell DO Copies to: ~ Date of Service: 12/09/2021 Subjective Subjective Narrative: Mrs. Alvares is a 56-year-old white female with history of COPD, smoker, alcohol abuse and hypothyroidism on levothyroxine who was transferred from [facility] on 12/04 for abnormal blood work [...] and 1 g of calciumbefore transfer to [facility]. 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 HEAD OF PHYSICS: Awake,Alert, following simple command Musculoskeletal: No joint [...] 500 Mg Tablet) 500 mg PO BID.WITH.BFAST.LUNCH [facility] Stop: 12/05/22 07:59 Last Admin: 12/09/21 08:25 Dose: 500 mg Calcium Carbonate (Calcium Carbonate 500 Mg Tablet) 1,000 mg PO BID [facility] Stop: 12/06/22 09:29 Last Admin: 12/09/21 [...] 40 Mg Tablet) 40 mg PO DAILY.8A [facility] Stop: 12/10/22 07:59 Magnesium Sulfate (Magnesium Sulf 2gm-*Swfi*) 2 gm in 50 mls @ 25 mls/hr IV DAILY PRN PRN Reason: Magnesium Level < 1.5 Stop: 12/04/22 10:15 Folic Acid 1 mg/ Dextrose 50.2 mls @ 100.4 mls/hr IV DAILY [facility] Stop: 12/04/22 13:59 Last Admin: 12/09/21 [...] 100 Mg Tab.Er.24h) 100 mg PO DAILY [facility] Stop: 12/04/22 17:43 Last Admin: 12/09/21 08:14 Dose: 100 mg Metoprolol Tartrate (Metoprolol Tartrate 5 Mg/5 Ml Vial) 5 mg IV-PUSH Q4H PRN PRN Reason: tachycardia Stop: 12/06/22 19:17 Nicotine (Nicotine Patch 21 Mg/24hr 1 Each Patch.Td24) 1 each TRANSDERML DAILY [facility] Stop: 12/06/22 08:59 Last Admin: 12/09/21 08:15 Dose: Not Given Omeprazole (Omeprazole 20 Mg Capsule.Dr) 20 mg PO DAILY [facility] Stop: 12/05/22 08:59 Last Admin: 12/09/21 08:14 Dose: 20 mg Potassium Chloride (Potassium Chloride Er 20 Meq Tab.Er.Prt) 20 meq PO DAILY PRN PRN Reason: Hypokalemia Stop: 12/04/22 10:15 Potassium Chloride (Potassium Chloride Er 20 Meq Tab.Er.Prt) 40 meq PO DAILY PRN PRN Reason: Hypokalemia Stop: 12/04/22 10:15 Sodium Bicarbonate (Sodium Bicarbonate 650 Mg Tablet) 650 mg PO TID [facility] Stop: 12/07/22 13:59 Last Admin: 12/09/21 [...] Unique Enciso M.D.12/08/2021 5:49 PM Dictation Location: [place] [address] Any impression(s) listed above is documentation that [...] <Electronically signed by William Esposito MD> 12/09/211057 [facility] Work Phone: 1(826) 331-903308-31-2022 Progress note Author Claude Castellanos [facility] December 08, 2021 6:59pmNote Date/TimeAugust 2021 6:59pm[place] [address] Hospitalist Progress Note Signed Patient: Orestes Alvares MR#: [id number] : 1965 Acct:[id number] Age/Sex: 56 / F Adm Date: 2 Loc: 4P Room: 6E6422-2 Type: ADM IN Attending Dr: Claude Castellanos [...] <Electronically signed by Claude Castellanos MD> 12/08/21 [facility] Work Phone: 1(591) 629-317108-31-2022 Consult note Author Luis Sams [facility] December 08, 2021 3:55pmNote Date/TimeAugust 2021 3:55pm[place] [address] Urology Consult Note Signed Patient: Orestes Alvares MR#: [id number] : 1965 Acct:[id number] Age/Sex: 56 / F Adm Date: 2 Loc: 4 Room: [address] [place] [address] Type: ADM IN Attending Dr: Claude Castellanos MD Copies to: DO Claude Rose MD Patrick R Waters, MD~ History of Present Illness Consult Details Consult Date: 12/08/2021 Requesting Provider: Claude Castellanos MD HPI: This lady was admitted to the hospital after transfer from [facility] dueto low sodium, calcium and magnesium [...] % (Auto) 55.8, Lymph % (Auto) 27.7, [place] % (Auto) 13.1, Eos % (Auto) 2.7, Baso % (Auto) 0.7, Neut # (Auto) 3.1, Lymph # (Auto) 1.6, [place] # (Auto) 0.7, Eos # (Auto) 0.2, [...] % (Auto) 83.6, Lymph % (Auto) 7.8, [place] % (Auto) 8.3, Eos % (Auto) 0.1, Baso % (Auto) 0.2, Neut # (Auto) 6.2, Lymph # (Auto) 0.6 L, [place] # (Auto) 0.6, Eos # (Auto) 0.0, [...] <Electronically signed by MD Luis Sams> 12/08/21 1550 [facility] Work Phone: 1(285) 170-925408-31-2022 Progress note Author William Esposito [facility] December 08, 2021 11:01amNote Date/TimeAugust 2021 10:55[place] [address] Nephrology Progress Note Signed Patient: Orestes Alvares MR#: [id number] : 1965 Acct:[id number] Age/Sex: 56 / F Adm Date: 2 Loc: Room: [address] [place] [address] Type: ADM IN Attending Dr: Claude Castellanos MD Copies to: ~ Date of Service: 12/08/2021 Subjective Subjective Narrative: Mrs. Alvares is a 56-year-old white female with history of COPD, smoker, alcohol abuse and hypothyroidism on levothyroxine who was transferred from [facility] on 12/04 for abnormal blood work [...] and 1 g of calciumbefore transfer to [facility]. 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 HEAD OF PHYSICS: Awake,Alert, following simple command Musculoskeletal: No joint [...] 500 Mg Tablet) 500 mg PO BID.WITH.BFAST.LUNCH [facility] Stop: 12/05/22 07:59 Last Admin: 12/08/21 08:29 Dose: 500 mg Calcium Carbonate (Calcium Carbonate 500 Mg Tablet) 1,000 mg PO BID [facility] Stop: 12/06/22 09:29 Last Admin: 12/08/21 [...] 50.2 mls @ 100.4 mls/hr IV DAILY [facility] Stop: 12/04/22 13:59 Last Admin: 12/08/21 09:44 Dose: 100 mls/hr Thiamine HCl 200 mg/ Sodium (Chloride) 102 mls @ 204 mls/hr IV TID [facility] Stop: 12/04/22 21:59 Last Infusion: 12/08/21 08:59 Dose: Infused Levofloxacin (Levofloxacin 750 Mg Tablet) 750 mg PO Q48H [facility] Levothyroxine Sodium (Levothyroxine 50 Mcg Tablet) 50 mcg PO DAILY.0630 [facility] Stop: 12/05/22 06:29 Last Admin: 12/08/21 [...] 20 Mg Capsule.Dr) 20 mg PO DAILY [facility] Stop: 12/05/22 08:59 Last Admin: 12/08/21 08:28 Dose: 20 mg Potassium Chloride (Potassium Chloride Er 20 Meq Tab.Er.Prt) 20 meq PO DAILY PRN PRN Reason: Hypokalemia Stop: 12/04/22 10:15 Potassium Chloride (Potassium Chloride Er 20 Meq Tab.Er.Prt) 40 meq PO DAILY PRN PRN Reason: Hypokalemia Stop: 12/04/22 10:15 Sodium Bicarbonate (Sodium Bicarbonate 650 Mg Tablet) 650 mg PO TID [facility] Stop: 12/07/22 13:59 Last Admin: 12/08/21 08:28 Dose: 650 mg Sodium Chloride (Sodium Chloride 0.9 % 10 Ml Syringe) 0 ml IV-PUSH PRN PRN PRN Reason: Flush Stop: 12/04/22 10:15 Last Admin: 12/05/21 22:07 Dose: 10 ml Vitamin D (Cholecalciferol 10 Mcg (400 Units) Tablet) 20 mcg PO BID.WITH.MEALS [facility] Stop: 12/07/22 07:59 Last Admin: 12/08/21 [...] Unique Enciso M.D.12/07/2021 4:27 PM Dictation Location: [place] [address] Any impression(s) listed above is documentation that [...] signed by William Esposito MD> 12/08/21 1101 [facility] Work Phone: 1([phone] 327-453108-30-2022 Progress note Author Claude Castellanos [facility] December 07, 2021 8:00pmNote Date/TimeAugust 2021 8:00[place] [address] Hospitalist Progress Note Signed Patient: Orestes Alvares MR#: [id number] : 1965 Acct:[id number] Age/Sex: 56 / F Adm Date: 2 Loc: Room: [address] [place] [address] Type: ADM IN Attending Dr: Claude Castellanos [...] <Electronically signed by Claude Castellanos MD> 12/07/211999 [facility] Work Phone: 1([phone]) 596-529208-30-2022 Consult note Author Kylah Verdugo [facility] December 07, 2021 4:57pmNote Date/TimeAugust 2021 4:51pm[place] [address] Cardiology Consult Note Signed Patient: Orestes Alvares MR#: [id number] : 1965 Acct:[id number] Age/Sex: 56 / F Adm Date: 2 Loc: Room: [address] [place] [address] Type: ADM IN Attending Dr: Claude Castellanos MD Copies to: DO Claude Rose MD Hassan M Ibrahim, MD, FACC~ Cardiology HPI History of Present Illness Consult Date: 12/07/21 Reason for Consult: Paroxysmal atrial fibrillation HPI: Ms. Alvares is a 56 year old female who is being seen at the request of the hospitalist because ofparoxysmal atrial fibrillation. Patient presented to [facility] emergency department with syncopal event believed to [...] denies any complaints. While she was in [facility] emergency department her high-sensitivitytroponin was elevated at [...] Lymph # (Auto) 0.6 L (1.00-4.8) x10E3/uL [place] # (Auto) 0.6 (0.0-0.8) x10E3/uL Eos # [...] 50 ml @ 100.4 mls/hr IV DAILY [facility] Rx#:[id number] Thiamine 200 mg In Sodium 102 / 102 Chloride 0.9% 100 ml 100 ml @ 204 mls/hr IV TID [facility] Rx#: [id number] Oral 150 / 350 200 / 350 [...] failure, unspecified Documented By: Kylah Verdugo MD, [facility] 2 1649 Signed By: <Electronically signed by [facility] Kylah Verdugo> 12/07/217 [facility] Work Phone: 1(330) 302-839308-30-2022 Progress note Author William Esposito [facility] December 07, 2021 10:38amNote Date/TimeAugust 2021 10:34a[place] [address] Nephrology Progress Note Signed Patient: Orestes Alvares MR#: [id number] : 1965 Acct:[id number] Age/Sex: 56 / F Adm Date: 2 Loc: Room: [address] [place] [address] Type: ADM IN Attending Dr: Claude Castellanos MD Copies to: ~ Date of Service: 12/07/2021 Subjective Subjective Narrative: Mrs. Alvares is a 56-year-old white female with history of COPD, smoker, alcohol abuse and hypothyroidism on levothyroxine who was transferred from [facility] on 12/04 for abnormal blood work [...] and 1 g of calciumbefore transfer to [facility]. 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 HEAD OF PHYSICS: Awake,Alert, following simple command Musculoskeletal: No joint [...] 500 Mg Tablet) 500 mg PO BID.WITH.BFAST.LUNCH [facility] Stop: 12/05/22 07:59 Last Admin: 12/07/21 08:12 Dose: 500 mg Calcium Carbonate (Calcium Carbonate 500 Mg Tablet) 1,000 mg PO BID [facility] Stop: 12/06/22 09:29 Last Admin: 12/07/21 [...] 50.2 mls @ 100.4 mls/hr IV DAILY [facility] Stop: 12/04/22 13:59 Last Infusion: 12/07/21 09:30 Dose: Infused Thiamine HCl 200 mg/ Sodium (Chloride) 102 mls @ 204 mls/hr IV TID [facility] Stop: 12/04/22 21:59 Last Infusion: 12/07/21 09:17 Dose: Infused Levofloxacin (Levaquin) 750 mg in 150 mls @ 100 mls/hr IV Q48H [facility] Last Admin: 12/07/21 09:31 Dose: 100 mls/hr Sodium Bicarbonate 150 meq/ (Dextrose) 1,150 mls @ 100 mls/hr IV .[id number] [facility] Stop: 12/06/22 19:29 Last Admin: 12/06/21 20:18 Dose: 100 mls/hr Levothyroxine Sodium (Levothyroxine 50 Mcg Tablet) 50 mcg PO DAILY.0630 [facility] Stop: 12/05/22 06:29 Last Admin: 12/07/21 [...] Rossi Salinas M.D.12/06/2021 6:01 PM Dictation Location: [place] [address] Any impression(s) listed above is documentation that [...] signed by William Esposito MD> 12/07/21 1038 [facility] Work Phone: [phone] Progress note Author Hong Jewell [facility] December 06, 2021 7:32pmNote Date/TimeAugust 2021 7:32pm[place] [address] Hospitalist Progress Note Signed Patient: Orestes Alvares MR#: [id number] : 1965 Acct:[id number] Age/Sex: 56 / F Adm Date: 2 Loc: Room: 5D7746-5 Type: ADM IN Attending Dr: Hong Jewell [...] known that when the patient [facility] she was concerned about missing her blood [...] that she reported were completed at the [facility]. Given her vasovagal syncope in the [...] 11:01 Dextrose IV 12/06/21 20:59 100 mls/hr .[id number] [facility] Administration Sodium Chloride 1,000 mls @ [...] <Electronically signed by Hong Jewell DO> 12/06/211931 [facility] Work Phone: 1([phone] 434-438708-29-2022 Consult note Author Rehan Russ [facility] December 06, 2021 5:46pmNote Date/TimeAugust 2021 5:46pm[address] [address] Gastroenterology Consult Note Signed Patient: Orestes Alvares MR#: [id number] : 1965 Acct:[id number] Age/Sex: 56 / F Adm Date: 2 Loc: Room: [address] [place] [address] Type: ADM IN Attending Dr: Hong Jewell [...] recorded. The patient was transferred to the [facility] ER and admitted the day before yesterday [...] EGD and colonoscopy several years ago in [place]. She was told that she had a gastric polyp and a colon polyp. She has not had this rechecked. Hemoglobin did drop to 7.7 but is now 8.7. Stool for occult blood is negative. Blood counts show macrocytic indices with normal ferritin. Review of systems includes hypertension, hypothyroidism, history of [place], history of SVT. cc:: CC: Hong Jewell [...] % (Auto) 62.7 Lymph % (Auto) 19.7 [place] % (Auto) 14.4 Eos % (Auto) 2.3 Baso % (Auto) 0.9 Neut # (Auto) 4.0 Lymph # (Auto) 1.3 [place] # (Auto) 0.9 H Eos # (Auto) [...] MPV Neut % (Auto) Lymph % (Auto) [place] % (Auto) Eos % (Auto) Baso % (Auto) Neut # (Auto) Lymph # (Auto) [place] # (Auto) Eos # (Auto) Baso # [...] <Electronically signed by MD Rehan Russ> 12/06/211745 [facility] Work Phone: [phone]) [phone] Progress note Author William Esposito [facility] December 06, 2021 1:19pmNote Date/TimeAugusdalton 2021 1:19pm[place] [address] Nephrology Progress Note Signed Patient: Orestes Alvares MR#: [id number] : 1965 Acct:[id number] Age/Sex: 56 / F Adm Date: 2 Loc: Room: [address] [place] [address] Type: ADM IN Attending Dr: Hong Jewell DO Copies to: ~ Date of Service: 12/06/2021 Subjective Subjective Narrative: Mrs. Alvares is a 56-year-old white female with history of COPD, smoker, alcohol abuse and hypothyroidism on levothyroxine who was transferred from [facility] on 12/04 for abnormal blood work [...] and 1 g of calciumbefore transfer to [facility]. 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 HEAD OF PHYSICS: Awake,Alert, following simple command Musculoskeletal: No joint [...] 50.2 mls @ 100.4 mls/hr IV DAILY [facility] Stop: 12/04/22 13:59 Last Admin: 12/06/21 11:00 Dose: 100 mls/hr Thiamine HCl 200 mg/ Sodium (Chloride) 102 mls @ 204 mls/hr IV TID [facility] Stop: 12/04/22 21:59 Last Admin: 12/05/21 22:05 Dose: 204 mls/hr Levofloxacin (Levaquin) 750 mg in 150 mls @ 100 mls/hr IV Q48H [facility] Last Admin: 12/05/21 09:17 Dose: 100 mls/hr Ferric Sodium Gluconate Complex 250 mg/ Sodium Chloride 270 mls @ 135 mls/hr IVQAM [facility] Stop: 12/09/21 08:59 Last Admin: 12/06/21 11:01 Dose: 135 mls/hr Sodium Bicarbonate 150 meq/ (Dextrose) 1,150 mls @ 100 mls/hr IV .[id number] [facility] Stop: 12/06/21 20:59 Last Admin: 12/06/21 11:01 Dose: 100 mls/hr Levothyroxine Sodium (Levothyroxine 50 Mcg Tablet) 50 mcg PO DAILY.0630 [facility] Stop: 12/05/22 06:29 Last Admin: 12/06/21 [...] 100 Mg Tab.Er.24h) 100 mg PO DAILY [facility] Stop: 12/04/22 17:43 Last Admin: 12/06/21 11:12 Dose: Not Given Nicotine (Nicotine Patch 21 Mg/24hr 1 Each Patch.Td24) 1 each TRANSDERML DAILY [facility] Stop: 12/06/22 08:59 Omeprazole (Omeprazole 20 [...] signed by William Esposito MD> 12/06/21 1319 [facility] Work Phone: [phone] Progress note Author Hong Jewell [facility] December 05, 2021 5:23pmNote Date/TimeAugust 2021 5:09pm[place] [address] Hospitalist Progress Note Signed with Addenda Patient: Orestes Alvares MR#: [id number] : 1965 Acct:[id number] Age/Sex: 56 / F Adm Date: 2 Loc: 3T Room: [address] [place] [address] Type: ADM IN Attending Dr: Hong Jewell [...] Lactated Ringer's IV 12/04/22 14:14 75 mls/hr .[id number] [facility] Administration Folic Acid 1 mg/ Dextrose [...] signed by Hong Jewell DO> 12/05/21 172 [facility] Work Phone: [phone] Consult note Author Nilesh Oakley [facility] December 05, 2021 2:55pmNote Date/TimeAugust 2021 2:55[place] [address] Nephrology Consult Note Signed Patient: Orestes Alvares MR#: [id number] : 1965 Acct:[id number] Age/Sex: 56 / F Adm Date: 2 Loc: Room: [address] [place] [address] Type: ADM IN Attending Dr: Hong Jewell [...] hypothyroidism on levothyroxine who was transferred from [facility] on 12/04 for abnormal blood work [...] and 1 g of calciumbefore transfer to [facility]. Today's creatinine is slightly better 1.87 [...] 500 Mg Tablet) 500 mg PO BID.WITH.BFAST.LUNCH [facility] Stop: 12/05/22 07:59 Last Admin: 12/05/21 11:55 Dose: 500 mg Magnesium Sulfate (Magnesium Sulf 2gm-*Swfi*) 2 gm in 50 mls @ 25 mls/hr IV DAILY PRN PRN Reason: Magnesium Level < 1.5 Stop: 12/04/22 10:15 Potassium Chloride 20 meq/ (Lactated Ringer's) 1,010 mls @ 75 mls/hr IV .[id number] [facility] Stop: 12/04/22 14:14 Last Admin: 12/05/21 01:34 Dose: 75 mls/hr Folic Acid 1 mg/ Dextrose 50.2 mls @ 100.4 mls/hr IV DAILY [facility] Stop: 12/04/22 13:59 Last Admin: 12/05/21 09:17 Dose: 100 mls/hr Thiamine HCl 200 mg/ Sodium (Chloride) 102 mls @ 204 mls/hr IV TID [facility] Stop: 12/04/22 21:59 Last Admin: 12/05/21 09:17 Dose: 204 mls/hr Levofloxacin (Levaquin) 750 mg in 150 mls @ 100 mls/hr IV Q48H [facility] Last Admin: 12/05/21 09:17 Dose: 100 mls/hr Levothyroxine Sodium (Levothyroxine 50 Mcg Tablet) 50 mcg PO DAILY.0630 [facility] Stop: 12/05/22 06:29 Last Admin: 12/05/21 06:55 Dose: Not Given Metoprolol Succinate (Metoprolol Succinate 100 Mg Tab.Er.24h) 100 mg PO DAILY [facility] Stop: 12/04/22 17:43 Last Admin: 12/05/21 09:17 Dose: 100 mg Omeprazole (Omeprazole 20 Mg Capsule.Dr) 20 mg PO DAILY [facility] Stop: 12/05/22 08:59 Last Admin: 12/05/21 [...] Cloudy A Urine pH 5.5 Ur Specific [place] 1.013 Urine Protein 30 H Urine Glucose [...] signed by MD Nilesh Oakley> 12/05/21 1455 [facility] Work Phone: 1([phone] History and physical note Author Hong Jewell [facility] December 04, 2021 9:07pmNote Date/TimeAugust 2021 9:07pmWall[place] [address] Hospitalist H&P Signed Patient: Orestes Alvares MR#: [id number] : 1965 Acct:[id number] Age/Sex: 56 / F Adm Date: 2 Loc: Room: [address] [place] [address] Type: ADM IN Attending Dr: Hong Jewell DO Copies to: DO Hong Rose, ~ HPI DATE OF EXAMINATION: 12/04/21 CHIEF COMPLAINT: weakness, passing out, lightheadedness. HISTORY OF PRESENT ILLNESS: This is a 56-year-old woman who presented to the [facility] emergency room yesterday evening with complaints of [...] supposed to come get established with a street contractor in [place]. She also was supposed to see a rheumatologistbecause she has probably rheumatoid arthritis and she has had a rash on her back for many decades. She has a fullness in the supraclavicular regions on both right and the left side. She says that the [facility] told her that these were lipomas based [...] the age of 17. I gave her [id number] history. In terms of alcohol use she [...] mentioned elsewhere in the documentation. [facility] Vaccinated for COVID-19?: No Medical History (Updated [...] % (Auto) 13.0 % (.) 12/04/21 11:47 [place] % (Auto) 13.9 % (.) 12/04/21 11:47 Eos % (Auto) 1.2 % (.) 12/04/21 11:47 Baso % (Auto) 0.4 % (.) 12/04/21 11:47 Neut # (Auto) 4.5 x10E3/uL (1.8-7.7) 12/04/21 11:47 Lymph # (Auto) 0.8 x10E3/uL (1.00-4.8) L 12/04/21 11:47 [place] # (Auto) 0.9 x10E3/uL (0.0-0.8) H 12/04/21 [...] <Electronically signed by Hong Jewell DO> 12/04/212106 [facility] Work Phone: Evaluation note* Diagnosis Onset Date Resolution Status Acute kidney injury acuteAlcohol abuseacuteAnemiaacuteAtrial fibrillationacuteFolic acid deficiency acuteHTN (hypertension)acuteHydronephrosisacuteHypocalcemiaacuteHypokalemiaacute HypomagnesemiaacuteHyponatremiaacuteHypothyroidacuteIron deficiencyacute Macrocytic anemiaacuteModerate protein-calorie malnutritionacuteParoxysmal atrial fibrillation with RVRacuteStress-induced cardiomyopathyacuteType 2 myocardial infarctionacuteUrethral stenosisacuteVasovagal syncopeacute [facility] Work Phone: Evaluation noteNo assessment information available [facility] Work Phone: evaluation note* Diagnosis Onset Date Resolution Status GERD (gastroesophageal reflux disease) acuteHypertensionacuteHypomagnesemiaacuteHypothyroidacuteLupusacuteParoxysmal atrial fibrillation with RVRacuteRheumatoid arthritisacuteStress-induced cardiomyopathyacuteType 2 myocardial infarctionacute [facility] Work Phone: Evaluation note* Diagnosis Onset Date Resolution Status Alcohol abuse acuteGERD (gastroesophageal reflux disease)acuteHypertensionacuteHypomagnesemia acuteHypothyroidacuteLupusacuteParoxysmal atrial fibrillation with RVRacute Rheumatoid arthritisacuteStress-induced cardiomyopathyacuteType 2 myocardial infarctionacuteAlcohol abuseacuteBreast enlargementacuteBreast skin changesacute GERD (gastroesophageal reflux disease)acuteHypertensionacuteHypomagnesemiaacute HypothyroidacuteLupusacuteParoxysmal atrial fibrillation with RVRacuteRheumatoid arthritisacuteStress-induced cardiomyopathyacuteType 2 myocardial infarction acute [facility] Work Phone: Evaluation note* Diagnosis [...] History2 HEART ABLASIONS Hospitalization HistorySEE ABOVEHospitalization HistoryDEHYDRATION12/2021 [employer] Other Hospital Discharge instructions Additional Instructions Dietary recommendations: - Magic cup (or equivalent) twice daily [facility] Work Phone: Hospital Discharge instructions Additional Instructions Follow-up with your primary care doctor Return to ED if develop worsening symptoms or concerns Take your medications [facility] Work Phone: Hospital Discharge instructionsAmbulatory Orders* Referral to Cardiology Location: None Selected * Referral to Rheumatology Location: None Selected [facility] Work Phone: Hospital Discharge instructionsAmbulatory Orders* Referral to Cardiology Location: None Selected [facility] Work Phone: InstructionsNot on filedocumented in this encounter [facility] System[facility]ructionsNot on filedocumented in this encounter [facility] Summary Purpose Family History No Family [...] and content) DATE CREATED AUTHOR 09/29/2017 [facility] DATE CREATED AUTHOR AUTHOR'S ORGANIZ ATION 01/07/2022 [facility] DATE CREATED AUTHOR AUTHOR'S ORGANIZ ATION 06/21/2024 [facility] [employer] DATE CREATED AUTHOR AUTHOR'S ORGANIZ ATION 09/11/2024 [facility] DATE CREATED AUTHOR AUTHOR'S ORGANIZ ATION 09/18/2024 [facility] DATE CREATED AUTHOR AUTHOR'S ORGANIZ ATION 10/23/2024 [facility] DATE CREATED AUTHOR AUTHOR'S ORGANIZ ATION 11/02/2024 [facility] DATE CREATED AUTHOR AUTHOR'S ORGANIZ ATION 12/27/2024 [facility] Care Teams (unrecognized sec tion and content) Team Status: Inactive Member Role Status Dates Segundo Rawls DO Primary Care Provider Active Hong Jewell DOAdmit Provider, Attending ProviderActiveRehan Russ MDOther ProviderActiveNilesh Oakley MDOther ProviderActiveShawnee Persaud RNOther ProviderActiveGillian Romano [...] Member Role Status Dates Katie Velasquez APRN IT PROJECT LEAD-C Primary Care Provider Active Team Status: Inactive Member Role Status Dates Katie Velasquez APRN IT PROJECT LEAD-C Primary Care Provider, Attending Provider Active Start: September 28, 2023 End: September 28, 2023 Team Status: Inactive Member Role Status Dates Katie Velasquez APRN IT PROJECT LEAD-C Primary Care Provider, Attending Provider Active Start: December 27, 2023 End: December 27, 2023 Team Status: Inactive Member Role Status Dates Katie Velasquez APRN IT PROJECT LEAD-C Primary Care Provider, Attending Provider Active Start: February 19, 2024 End: February 19, 2024 Team Status: Active Member Role Status Dates PHYSICIAN NO FAMILY Primary Care Provider Active Team Status: Active Member Role Status Dates Katie Velasquez APRN IT PROJECT LEAD-C Primary Care Provider Active Start: April End: April 28anabell Zamorano DOAttending ProviderActiveStart: April 22, 2024 End: April 28, 2024MADINA Julieneferring ProviderActiveStart: April 22, 2024 End: April 28, 2024 Team Status: Inactive Member Role Status Dates Katie Velasquez APRN IT PROJECT LEAD-C Primary Care Provider Active Start: June 12, 2024 End: June 12, 2024Sheryl Santamaria DOAttending ProviderActiveStart: June 12, 2024 End: June 12, 2024 Team Status: Active Member Role Status Dates Katie Velasquez APRN IT PROJECT LEAD-C Primary Care Provider, Attending Provider Active Start: June 12, 2024 Team Status: Active Member Role Status Dates PHYSICIAN NO FAMILY Primary Care Provider Active Start: June 13, 2024 Orlando Julien ProviderActiveStart: June 13, 2024 Team MemberRelationshipSpecialtyStart DateEnd Date Katie Velasquez NP [address] [place] [address] PCP - GeneralFamily Ycslkbmr70/8/24Team MemberRelationshipSpecialtyStart DateEnd Date Katie Velasquez NP [address] [place] [address] [facility] - [facility] Jfslqepk47/8/24Team MemberRelationshipSpecialtyStart DateEnd Date Katie Velasquez NP [address] [place] [address] PCP - GeneralFami Hpqpdwhh03/8/24Team MemberRelationshipSpecialtyStart DateEnd Date Katie Velasquez NP [address] [place] [address] [place] [address] PCP - GeneralFamily Bmjrholl62/8/24 Goals (unrecognized section and content) Goals may [...] BE BASED ON THE PRIMARY CLINICAL RECORDS. [facility] [employer] [facility]. provides no warranty or guarantee of the accuracy or completeness of information in this document.
--- NOTE | 2025-02-14 02:15 | ECG_ITS ---
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 Measurements Intervals [place] Rate: 82 P: VT: QRS: 44 QRSD: 97 T: 55 QT: 422 QTc: 496 Interpretive Statements ATRIAL FIBRILLATION ABNORMAL ECG Compared to ECG 02/13/2025 22:15:09 Aberrant conduction of supraventricular beat(s) no longer present Electronically Signed On 02-14-2025 7:29:27 EST by KAREN FRANCE M.D.
[2025-02-14] MEDS: LEVOTHYROXINE SODIUM 100 MCG TABLET PO (06:41)
[2025-02-14 07:19] LABS: Hematocrit 31.3 % (36.0-48.0); Hemoglobin 10.9 g/dL (12.0-16.0); Mean Corpuscular HGB Conc 34.8 g/dL (29.9-35.2); Mean Corpuscular Hemoglobin 31.1 pg (26.7-34.0); Mean Corpuscular Volume 89.2 fL (81.0-99.0); Platelet Count 229 10^3/uL (150-450); Red Blood Count 3.51 10^6/uL (4.20-5.40); White Blood Count 7.1 10^3/uL (4.0-11.0)
[2025-02-14 07:39] LABS: Alanine Aminotransferase <6 U/L (14-59); Albumin Globulin Ratio 1.0; Albumin Level 3.5 g/dL (3.4-5.0); Alkaline Phosphatase 132 U/L (46-116); Anion Gap 16.2; Aspartate Amino Transferase 13 U/L (15-37); Blood Urea Nitrogen 37.0 mg/dL (7.0-18.0); Calcium 6.8 mg/dL (8.5-10.1); Carbon Dioxide 19.3 mmol/L (21.0-32.0); Chloride 96 mmol/L (98-107); Estimated GFR (African America 15 (>=60 mL/min/1.73m^2); Estimated GFR (Non-African Ame 13 (>=60 mL/min/1.73m^2); Globulin 3.5 g/dL; Glucose 115 mg/dL (74-106); Potassium 3.5 mmol/L (3.5-5.1); Sodium 128 mmol/L (136-145); Total Protein 7.0 g/dL (6.4-8.2)
[2025-02-14 08:17] LABS: Magnesium 0.8 mg/dL (1.8-2.4)
--- NOTE | 2025-02-14 09:00 | CM.NOTE ---
Rounds made with Dr. Staples, discussed reason for admission and plan of care. Pt inpatient status, no discharge today.
[2025-02-14] MEDS: CARVEDILOL 12.5 MG TABLET PO ×2 (09:45→20:59)
[2025-02-14] MEDS: PANTOPRAZOLE SODIUM 40 MG TABLET.DR PO (09:46)
[2025-02-14] MEDS: ALLOPURINOL 100 MG TABLET PO (09:46)
[2025-02-14] MEDS: ESCITALOPRAM 10 MG TABLET PO (09:46)
[2025-02-14] MEDS: APIXABAN 5 MG TABLET 2.5 MG PO (09:46)
[2025-02-14] MEDS: AMLODIPINE BESYLATE 5 MG TABLET PO (09:47)
[2025-02-14] MEDS: SEVELAMER CARBONATE 800 MG TABLET PO ×3 (09:47→17:42)
[2025-02-14] MEDS: FOLIC ACID 1 MG TABLET PO (09:47)
[2025-02-14] MEDS: DOXYCYCLINE HYCLATE 100 MG in 0.9 % SODIUM CHLORIDE 100 ML IV ×2 (11:34→20:58)
--- NOTE | 2025-02-14 11:45 | PM.HP ---
HPI H&P: HPI History of Present Illness Chief complaint: AMS UTI, Hypo: Caklsium Magnesuim Potassium Narrative: Mrs. Mckeon is a 60-year-old female who was brought to the emergency room with a report that she had been confused. Patient reported that people are trying to enter her house through the window. Patient believes that her ex-boyfriend is cheating on her with a 28-year-old woman. No weakness or numbness. No fever or chills. No chest pain or palpitation. Patient was found to have multiple abnormalities including severe hypomagnesemia and hypophosphatemia. Hypokalemia. Patient admitted drinking liquor several times a week. Patient has kidney failure. She was on dialysis before. Patient stated that she quit going to dialysis. Opioid HPI Opioid Management Most Recent Pain and Opioid Data: Last Pain Scale 5 Today, 09:56 Last Pain Intensity 6 04/27/24, 10:24 Last Pain Assessment Today, 11:00 Last ORT Total Score 1 Today, 01:34 Last ORT Risk Category Low Risk Today, 01:34 Ur Phencyclidine Scrn, (NEGATIVE) Negative 02/13/25, 21:40 PFSH PFSH Medical History Hypoxia ?R09.02 - Hypoxemia (ICD-10) Acute renal failure superimposed on chronic kidney disease ?N17.9 - Acute kidney failure, unspecified (ICD-10) ?N18.9 - Chronic kidney disease, unspecified (ICD-10) Hypothermia ?T68.XXXA - Hypothermia, initial encounter (ICD-10) CHF exacerbation ?I50.9 - Heart failure, unspecified (ICD-10) Paroxysmal atrial fibrillation ?I48.0 - Paroxysmal atrial fibrillation (ICD-10) Chronic kidney disease, stage 4 (severe) ?N18.4 - Chronic kidney disease, stage 4 (severe) (ICD-10) Acute on chronic heart failure with preserved ejection fraction (HFpEF) ?I50.33 - Acute on chronic diastolic (congestive) heart failure (ICD-10) Ulcer of right heel ?L97.419 - Non-pressure chronic ulcer of right heel and midfoot with unspecified severity (ICD-10) Hepatorenal syndrome ?K76.7 - Hepatorenal syndrome (ICD-10) Pulmonary hypertension ?I27.20 - Pulmonary hypertension, unspecified (ICD-10) Valvular heart disease ?I38 - Endocarditis, valve unspecified (ICD-10) Fluid overload ?E87.70 - Fluid overload, unspecified (ICD-10) Hypothyroidism ?E03.9 - Hypothyroidism, unspecified (ICD-10) Hypomagnesemia ?E83.42 - Hypomagnesemia (ICD-10) Hypoalbuminemia due to protein-calorie malnutrition ?E88.09 - Other disorders of plasma-protein metabolism, not elsewhere classified (ICD-10) ?E46 - Unspecified protein-calorie malnutrition (ICD-10) Hypertension ?I10 - Essential (primary) hypertension (ICD-10) Atrial fibrillation ?I48.91 - Unspecified atrial fibrillation (ICD-10) Chronic renal disease ?N18.9 - Chronic kidney disease, unspecified (ICD-10) Hypokalemia ?E87.6 - Hypokalemia (ICD-10) Hypocalcemia ?E83.51 - Hypocalcemia (ICD-10) Accidental fall ?W19.XXXA - Unspecified fall, initial encounter (ICD-10) Fracture of nasal bone ?S02.2XXA - Fracture of nasal bones, initial encounter for closed fracture (ICD-10) Hyponatremia ?E87.1 - Hypo-osmolality and hyponatremia (ICD-10) Hyperammonemia ?E72.20 - Disorder of urea cycle metabolism, unspecified (ICD-10) Hepatic encephalopathy ?K76.82 - Hepatic encephalopathy (ICD-10) Tobacco abuse ?Z72.0 - Tobacco use (ICD-10) Frequent falls ?R29.6 - Repeated falls (ICD-10) Lactic acidosis ?E87.20 - Acidosis, unspecified (ICD-10) Acute on chronic heart failure ?I50.9 - Heart failure, unspecified (ICD-10) Congestive heart failure ?I50.9 - Heart failure, unspecified (ICD-10) GERD (gastroesophageal reflux disease) ?K21.9 - Gastro-esophageal reflux disease without esophagitis (ICD-10) Stomach ulcer ?K25.9 - Gastric ulcer, unspecified as acute or chronic, without hemorrhage or perforation (ICD-10) Sigmoid diverticulosis ?K57.30 - Diverticulosis of large intestine without perforation or abscess without bleeding (ICD-10) Caries involving multiple surfaces of tooth ?K02.9 - Dental caries, unspecified (ICD-10) Renal cyst, acquired, left ?N28.1 - Cyst of kidney, acquired (ICD-10) Anxiety and depression ?F41.9 - Anxiety disorder, unspecified (ICD-10) ?F32.A - Depression, unspecified (ICD-10) Atrial fibrillation ?I48.91 - Unspecified atrial fibrillation (ICD-10) Smoker ?F17.200 - Nicotine dependence, unspecified, uncomplicated (ICD-10) Kidney failure ?N19 - Unspecified kidney failure (ICD-10) Alcohol abuse ?F10.10 - Alcohol abuse, uncomplicated (ICD-10) Surgical History History of endometrial ablation ?Z98.890 - Other specified postprocedural states (ICD-10) H/O section ?Z98.891 - History of uterine scar from previous surgery (ICD-10) Status post breast biopsy ?Z98.890 - Other specified postprocedural states (ICD-10) History of lumpectomy of both breasts ?Z98.890 - Other specified postprocedural states (ICD-10) S/P ablation of atrial fibrillation ?Z98.890 - Other specified postprocedural states (ICD-10) ?Z86.79 - Personal history of other diseases of the circulatory system (ICD-10) Family History Father Family history of CHF (congestive heart failure) Family history of diabetes mellitus Family history of hypertension Family history of myocardial infarction Mother Family history of cancer Family history of diabetes mellitus Family history of hypertension Family history of myocardial infarction Brother Family history of hypertension Family history of myocardial infarction Other Family history of COPD (chronic obstructive pulmonary disease) Social History (Updated 02/14/25 @ 02:16 by Naveed Rojas) Within the past year, how often did you have a drink containing alcohol: 2-3 times a week Within the past year, how often did you have six or more drinks on one occasion: never Smoking status: Current every day smoker Second hand tobacco smoke exposure: No Non-prescribed substance use: denies use Previous occupational history: retired Highest level of school completed/degree received: some college, no degree Are you now , , , , never or living with a partner: In a typical week, how many times do you talk on the telephone with family, friends, or neighbors: 3 or more times per week How often do you get together with friends or relatives: 3 or more times per week Little interest or pleasure in doing things: several days Feeling down, depressed, or hopeless: several days Feel stressed/tense/nervous/anxious/difficulty sleeping: not at all Do you think of yourself as: straight/heterosexual Gender Identity: female Meds Home Medications and Allergies Home Medications ?Medication ?Instructions ?Recorded ?Confirmed ?Type levothyroxine 100 mcg tablet 100 mcg PO DAILY 02/13/23 02/13/25 History walker #1 ea 02/17/23 06/12/24 Rx pantoprazole 40 mg tablet,delayed 40 mg PO DAILY #30 tabs 04/28/24 02/13/25 Rx release (Protonix) allopurinol 100 mg tablet 100 mg PO DAILY 08/20/24 02/13/25 History apixaban 2.5 mg tablet (Eliquis) 2.5 mg PO DAILY 08/20/24 02/13/25 History carvedilol 12.5 mg tablet 12.5 mg PO BID 08/20/24 02/13/25 History cetirizine 5 mg tablet 5 mg PO DAILY PRN allergy symptoms 08/20/24 02/14/25 History folic acid 1 mg tablet 1 mg PO DAILY 08/20/24 02/13/25 History midodrine 10 mg tablet 10 mg PO TID PRN hypotension 08/20/24 02/14/25 History escitalopram oxalate 10 mg tablet 10 mg PO QAM 01/13/25 02/13/25 History sevelamer HCl 800 mg tablet 800 mg PO TIDWM 01/13/25 02/14/25 History tizanidine 2 mg tablet 2 mg PO BID PRN muscle spasticity 01/13/25 02/13/25 History trazodone 50 mg tablet 25 mg PO QPM 01/13/25 02/13/25 History amlodipine 5 mg tablet 5 mg PO QAM 02/13/25 02/13/25 History Allergies Allergy/AdvReac Type Severity Reaction Status Date / Time cephalexin (From Keflex) Allergy swelling Verified 09/16/24 21:22 prednisone Allergy swelling Verified 09/16/24 21:22 Exam Narrative Exam Narrative: [pt is awake and alert. oriented to place and person but not to exact date and location HEENT: Pale conjunctiva and NL buccal mucosa couple of missing front teeth. Neck: Supple, no tenderness Endocrine: No Thyromegaly. Vascular: No JVD or carotid bruit. Lymphatic: No cervical lymphadenopathy. Chest: CTA no DTP. Heart RRR, no extra sound or murmur. Abd: Soft, no tenderness, no rebound and no rigidity. Increase abd girth therefore clinically I could not exclude the possibility of intra abd mass or organomegaly. LE: No cyanosis or clubbing, no varices or edema. Neuro: Awake and alert. Patient continues to report that her ex-boyfriend is cheating on her with young woman and that 3 people are trying to enter her house through the window. Not sure if there is a courtesy to these report. []] Constitutional Vital Signs, click to edit/add: Last Vital Signs Temp 98.1 F 02/14/25 07:34 Pulse 80 02/14/25 07:34 Resp 18 02/14/25 03:51 BP 119/74 02/14/25 07:34 Pulse Ox 97 02/14/25 07:34 O2 Del Method Room Air 02/14/25 07:34 Results Labs Labs: Short CBC 02/13/25 02/14/25 Range/Units 21:28 06:35 WBC 5.0 7.1 (4.0-11.0) 10^3/uL Hgb 10.5 L 10.9 L (12.0-16.0) g/dL Hct 30.2 L 31.3 L (36.0-48.0) % Plt Count 225 229 (150-450) 10^3/uL BMP 02/13/25 02/14/25 21:28 06:35 Sodium 129 L 128 L Potassium 2.8 L* 3.5 Chloride 97 L 96 L Carbon Dioxide 18.4 L 19.3 L BUN 33.0 H 37.0 H Creatinine 3.75 H 3.63 H Glucose 87 115 H Calcium 6.1 L 6.8 L Liver Function 02/13/25 02/14/25 Range/Units 21:28 06:35 Total Bilirubin 0.6 0.5 (0.2-1.0) mg/dL AST 14 L 13 L (15-37) U/L ALT 11 L <6 L (14-59) U/L Alkaline Phosphatase 139 H 132 H (46-116) U/L Albumin 3.6 3.5 (3.4-5.0) g/dL Urine 02/13/25 Range/Units 21:40 Urine Color Lt. yellow (YELLOW) Urine Clarity Sl cloudy (CLEAR) Urine pH 6.0 (5.0-9.0) Ur Specific [place] 1.010 (1.005-1.025) Urine Protein >=300 A (NEG/TRACE) mg/dL Urine Glucose (UA) Negative (NEGATIVE) mg/dL Assessment and Plan Assessment and Plan (1) Hypothyroidism: (2) Chronic kidney disease: (3) UTI (urinary tract infection): (4) Hypokalemia: (5) Hyponatremia: (6) Delirium due to general medical condition: (7) Hypomagnesemia: (8) Hypophosphatemia: Plan Severe hypokalemia 2.8, hypomagnesemia 0.3, hypocalcemia 6.8 with normal albumin and hypophosphatemia 1.4 Likely triggered by alcohol consumption and poor nutritional state Potassium, magnesium, phosphorus and calcium supplementation Alcohol dependency Patient drinks several liquor beverages several days a week Counseling and education Monitor for potential withdrawal syndrome Start the patient on thiamine intravenously as well as folic acid. UTI. More than 100 WBC as well as protein. Requested urine and blood culture. Start the patient on intravenous antibiotic. She is allergic to cephalosporin. Avoid quinolones due to significant electrolyte abnormalities increasing her risk having cardiac dysrhythmia Started patient on intravenous doxycycline pending culture report Stage IV kidney failure Patient has been on dialysis up until a month ago when patient decided not to continue with hemodialysis. She stated that she started dialysis on her own without her top executive Dr. Esposito recommendation. Currently there is no justification for urgent dialysis. Her potassium is on the low side, mild metabolic acidosis, no significant uremia and no fluid overload. Continue to monitor kidney function and recommend patient to follow-up with nephrology. Metabolic acidosis secondary to CKD stage IV. I started the patient on sodium bicarb with a goal to keep her bicarbonate above 22. Hypothyroidism with a TSH at 13. Not sure if patient is taking her Synthroid. She is supposed to be on 100 mcg. Increase up to 125. Repeat TSH in 4 to 6 weeks. Altered mental status, confusion, probable visual hallucination. CT head is negative for acute intracranial process. I suspect that her mental status changes secondary to metabolic encephalopathy caused by multiple metabolic derangement as listed above. Furthermore, I suspect that the patient may have thiamine deficiency causing Warnicke and possible Korsakoff encephalopathy I started patient on thiamine infusion. Monitor her mental status over the next 24 to 48 hours. Consideration for MRI of the brain if there is no resolution. Consider psychiatric evaluation if no resolution of her mental status change after reasonable correction of her metabolic derangement. Anemia, no evidence of acute blood loss. Could be related to CKD Her hemoglobin was 6.9 in August 2024. Patient reported having history of bleeding ulcer before. Currently her hemoglobin is 10.5 and stable. No drop of her hemoglobin. No justification for erythropoietin. Patient will likely require to have anemia workup to be done in the outpatient setting to be handled by PCP in collaboration with other needed outpatient providers. This may include but not limited to EGD, colonoscopy, referral to see hematology and other needed age-appropriate cancer screening. Chronic atrial fibrillation. Rate is controlled. Patient is supposed to be on Coreg 12.5 twice daily. Not sure if she is taking it. Patient is also on Eliquis 2.5 mg. Dose adjusted due to weight less than 60 and creatinine above 1.5 Chronic, subacute medical conditions not listed above, abnormal labs and imaging, incidental findings seen on labs and or imaging. These would need to be addressed. Could be addressed later on or in the outpatient setting by PCP collaboration with other needed outpatient providers when time and condition are appropriate.
--- NOTE | 2025-02-14 12:00 | SWNOTE1 ---
SW reviewed previous charting from 01/16 as SW was contacted by ED doctor for concerns about pt's follow ups. Pt did have a HH nurse from [facility], and she was attempting to get pt a PCP, to dialysis, and follow ups with Theatrical Scenic Designer. SW met with pt due to concerns about transportation. Pt was sitting up in bed when SW arrived. She voiced she is feeling alright at this time. SW asked if [facility] HH nurse was still coming in? She stated no because she does not have a PCP. SW asked if the HH nurse got her set up with a PCP? She stated no because the patient herself did not return calls as she does not like to talk on the phone. SW asked if she would be alright with us setting her up with a physician. SW advised it is very important so she can continue to get her medication. She voiced yes. SW asked if she had been kicked out of any practices? She stated yes and she is unsure of all of them. She last saw Katie Velasquez, but was released. SW asked if she would be open to going to a doctor in [place]? She stated yes. SW to check with Dr. Kaiser who is in Dr. Bess's office. SW then asked if she was getting any Dialysis? She stated no. She feels great and voiced she does not need it. Pt let SW know the only reason she came in was to get some sleep and her anxiety was high. SW asked what was going on? Pt let SW know about her male friend in the home and how he is talking to [place] women. Her son is also in the home. She voiced she still loves her male friend, Forrest, but she is not sure what to do as she hears him talking to these women every night. She also told SW that she feels that Forrest or the women have bugged her room and the bathroom and that she hears a squeaking sound. SW did advise that she could be hearing anything. SW advised she should check the room. Pt stated she has not done that, but she will. She also voiced that she has called the vp of global marketing in the past as she is concerned about these women coming to her home. SW asked if she felt safe at home? She did voice that she has concerns about these women. SW asked what SW can do to help? She was unsure. SW asked if she has spoke to Forrest about these women? She stated she has and she still loves Forrest but she is not sure what to do. SW advised that she should have a conversation with him and maybe it is time for him to leave the home. SW asked if they both owned the home. She stated yes it is 50/50. SW asked if her son is helpful to her. She stated not really and he is usually out with friends. Pt has decided that she will change the locks to her doors. SW asked if she plans on returning home at discharge? She did state that she is not sure and she will call her daughter who lives in [place] and think about staying with her. She also wants to talk to her son. SW advised to call them sooner than later as she may be ready for discharge tomorrow and SW wants to make sure she has a safe plan of discharge. SW also spoke with her about transportation issues. AYUSH asked if she or anyone else in the home drives? She stated she does not as she does not have a car or license, but she can get her license. She stated Forrest and her son do drive. They can get her to appointments. SW asked if she has a number for [employer] and [employer]. She does have the numbers. SW advised she can also call Medicaid, she was also aware of this. At this time nursing coming in to give medication. SW to stop back later this afternoon.
[2025-02-14] MEDS: FOLIC ACID IV (12:37)
[2025-02-14] MEDS: SODIUM CHLORIDE 0.9% IV (12:37)
[2025-02-14] MEDS: SOD PHOSPHATE,MONOBASIC-DIBAS 30 MMOL in 0.9 % SODIUM CHLORIDE 250 ML 43.333 MMOL IV (12:38)
[2025-02-14] MEDS: MAGNESIUM SULFATE IN WATER 2 GM/50 ML PREMIX IV (13:47)
[2025-02-14] MEDS: SODIUM BICARBONATE 325 MG TABLET 650 MG PO ×2 (13:48→21:00)
--- NOTE | 2025-02-14 14:56 | SWNOTE1 ---
AYUSH called Dr. Bess's office to try to get pt in with Dr. Kaiser. AYUSH had to leave message at this time and requested a call back.
--- OUTSIDE RECORDS SUMMARY | 2025-02-14 14:58 | XMS_ITS | Clinical Summary ---
Author Organization [facility] Address [address] [place] [address] Phone Care Team Providers Care Travelift Operator Name Role Phone Unavailable Primary Care Provider Unavailabl e Social History Tobacco UseTypesPacks/DayYears UsedDateSmoking Tobacco: Never Assessed CommentsUnknownSex and Gender InformationValueDate RecordedSex Assigned at Not on fileLegal XomSqribp75/26/2022 4:41 AM ESTGender IdentityNot on fileSexual OrientationNot on file Plan of Treatment Not on file
--- OUTSIDE RECORDS SUMMARY | 2025-02-14 14:58 | XMS_ITS | Clinical Summary ---
Author Organization [employer] tem Address [id number] [address] [place] [address] Care Team Providers Care Sql Analyst Name Role Phone Alana Miller APRN-MUSIC ARRANGER Primary Care Provider Allergies No known active [...] Active Problems ProblemNoted DateDiagnosed DateAcute hypoxic respiratory vrnfgsi44/07/2025Acute respiratory eaqesww0106/14/2024Mucus plug in respiratory tract06/13/2024 Social History Tobacco UseTypesPacks/DayYears UsedDateSmoking Tobacco: Never AssessedChildcare AnswerDate XbbbhduqWfslshpcvTskocte71/12/2019EmploymentAnswerDate Recorded UcubadmcswWplogau66/12/2019CommentsNoSex and Gender InformationValueDate RecordedSex Assigned at BirthNot on fileLegal FeeUncioz28/06/2015 11:29 AM EDT Gender IdentityNot on fileSexual OrientationNot on file Last Filed Vital Signs Vital SignReadingTime TakenCommentsBlood Ijdwguxo164/72007/03/2024 5:00 PM EDT Piqtw328307/03/2024 5:00 PM WSAKolbvyialjf92.8 ??C (98.3 ??F)07/03/2024 4:17 PM EDTRespiratory Drac363307/03/2024 5:00 PM EDTOxygen Znhdmfqzle68%07/03/2024 5:00 PM EDTInhaled Oxygen Concentration--Hikxxk64.4 kg (153 lb)07/03/2024 4:17 PM EDT Iipjre550 cm (5' 5.75 )06/24/2024 8:40 AM EDTBody Mass Index24.8806/24/2024 8:40 AM EDT Plan of Treatment Health MaintenanceDue DateLast DoneCommentsDepression Nbuhxdxhm59/23/1975Tobacco Heepyvarx55/23/1975DTaP,Tdap and Td Vaccines (1 - Tdap)1982Pap Smear 01/31/1984Zoster (Shingles) Vaccine (1 of 2)2013Influenza Vaccine 09/01/2025Adult BMI Htvldcpwj83RSV ( or age 60+ yrs) (1 - 1-dose 75+ series)2038 Goals GoalPatient Goal TypeAssociated ProblemsRecent ProgressPatient-Stated?Author <enter goal here> Mattie Ann RN Note: Evaluation of progress towards goal: Progress towards discharge Medical Devices Not on file Insurance Advance Directives * DNRCCA DNI (Latest Code Status on File) Date ActivatedDate InactivatedComments06/25/2024 2:15 PM07/03/2024 7:47 PM * DNR Comfort Care Arrest (DNR-CCA) [place] Date ActivatedDate InactivatedComments06/25/2024 2:07 PM06/25/2024 2:15 PM * Full Code Date ActivatedDate InactivatedComments06/13/2024 8:54 PM06/25/2024 2:07 PM Care Teams Team MemberRelationshipSpecialtyStart DateEnd Date Alana Miller, PEDIATRIC OPHTHALMOLOGIST-MUSIC ARRANGER [address] [place] [address] PCP - GeneralNurse Practitioner09/12/24
--- OUTSIDE RECORDS SUMMARY | 2025-02-14 14:58 | XMS_ITS | Clinical Summary ---
Author Organization [facility] Address [address] [place] [address] Care Team Providers Care Rose Grower Name Role Phone House Sr., DO Segundo Patton Primary Care Provider + Social History Tobacco UseTypesPacks/DayYears UsedDateSmoking Tobacco: Never Assessed CommentsUnknownSex and Gender InformationValueDate RecordedSex Assigned at Not on fileLegal UlmXxjiuy95/12/2014 2:24 PM ESTGender IdentityNot on fileSexual OrientationNot on file Plan of Treatment Health MaintenanceDue DateLast DoneCommentsAnxiety Cfwppgjww07/23/1981Depression Ygslkykbg23/23/1981HIV Dgpoqbvlg63/23/1981Hepatitis C Mpahtvdrc78/23/1981 DTaP,Tdap,Td Vaccine (1 - Tdap)1982Cervical Cancer Kstgdtrci38/23/1984 Mammogram Fbewxukyl83/23/2003CT Ouwblgumodvn92/23/2008Cologuard (FIT-DNA) 01/31/20080867Umfhblilgdw58/23/2008Colorectal Cancer Nymduzhuq47/23/2008Diabetes Ypubstywg37/23/2008Fecal Occult Blood01/31/2008Lipid Dmbazdfpw22/23/2008 Hprlfjebqygsm30/23/2008Pneumococcal Vaccine: 50+ (1 of 1 - PCV)2013 Shingrix Vaccine (1 of 2)2013Covid-19 Vaccine (1 - 2024- season) 2024Influenza Vaccine (#1)2024RSV Vaccine (1 - 1-dose 75+ series) 2038 Insurance Care Teams Team MemberRelationshipSpecialtyStart DateEnd Counts Include [facility] Segundo Rawls Sr., PCP - GeneralFamily Medicine04/18/18
--- OUTSIDE RECORDS SUMMARY | 2025-02-14 14:58 | XMS_ITS | Clinical Summary ---
Author Organization [facility] Address [address] [place] [address] Care Team Providers Care Benefits Sales Consultant Name Role Phone Katie Velasquez GEOTHERMAL PRODUCTION MANAGER Primary Care Provider Medications MedicationSigDispense QuantityRefillsLast FilledStart [...] 14 days 42 tablet 5Active Encounters DateTypeDepartmentCare LzqbKicfsphfymv67/21/2025bstract [facility] [address] [place] [phone] UnallocatedAnita MD 01/28/2025bstract [facility] [address] [place] [phone] Katie Velasquez NP 01/17/2025bstract [facility] [address] [place] [phone] UnallocatAnita rich MD 01/17/2025bstract [facility] [address] [place] [phone] UnallocatedAnita MD 01/07/2025bstract [facility] [address] [place] [phone] Katie Velasquez NP from Last 3 Months Social History Tobacco UseTypesPacks/DayYears UsedDateSmoking Tobacco: Never Assessed CommentsUnknownSex and Gender InformationValueDate RecordedSex Assigned at Not on fileLegal KtqXdzmwh33/15/2023 7:05 PM EDTGender IdentityNot on fileSexual OrientationNot on file Plan of Treatment Not on file Insurance * Guarantor: Maria M Redman TypeRelation to PatientDate of BirthPhone Billing AddressPersonal/LktfymOqij1965 [address] [phone] Care Teams Team MemberRelationshipSpecialtyStart DateEnd Date Katie Velasquez NP [address] [facility] [place] [address] PCP - GeneralFamily Racrjgxq92/8/24
--- OUTSIDE RECORDS SUMMARY | 2025-02-14 14:58 | XMS_ITS ---
Author Organization [employer] Address [id number] [address] [place] [address] Care Team Providers Care Information Systems Supervisor Name Role Phone Alana Miller APRN-DIRECTOR EDUCATION Primary Care Provider Dialysis Access Sites TypeStatusLocationPlacement DateRemoval DateHemodialysis Catheter Double 07/03/24 Cuffed Right Internal JugularActiveRight Neck (side) - Anterior 07/03/2024Hemodialysis Catheter Triple 06/14/24 Right Internal JugularInactive Right Neck (side) - Xoohpfge21/07/34617907/03/2024 Allergies No known active allergies Medications MedicationSigDispense [...] mL nebulizer Indications:Acute respiratory failure with hypoxia ([facility])Inhale 3 mL by nebulization every 4 (four) hours as needed for wheezing. 30 mL 5Active midodrine (PROAMATINE) 10 mg tablet Take 1 tablet (10 mg total) by mouth as needed (give pre/mid during dialysis as needed for SBP <100).5Active Active Problems ProblemNoted DateDiagnosed DateAcute hypoxic respiratory lumvavs20/07/2025Acute respiratory xcancrv0406/14/2024Mucus plug in respiratory tract06/13/2024 Social History Tobacco UseTypesPacks/DayYears UsedDateSmoking Tobacco: Never AssessedChildcare AnswerDate BhtlifznRthyhnitvDxqhgqb33/12/2019EmploymentAnswerDate Recorded HuxldthoonFruaolq67/12/2019CommentsNoSex and Gender InformationValueDate RecordedSex Assigned at BirthNot on fileLegal WsxAgwlqf79/06/2015 11:29 AM EDT Gender IdentityNot on fileSexual OrientationNot on file Last Filed Vital Signs Vital SignReadingTime TakenCommentsBlood Cpagsdap646/7203 5:00 PM EDT Wzfgg570707/03/2024 5:00 PM PQVObynbyfqjbc30.8 ??C (98.3 ??F)07/03/2024 4:17 PM EDTRespiratory Thzn925407/03/2024 5:00 PM EDTOxygen Zknsspoyyk67%07/03/2024 5:00 PM EDTInhaled Oxygen Concentration--Lnpubr90.4 kg (153 lb)07/03/2024 4:17 PM EDT Astgrt500 cm (5' 5.75 )06/24/2024 8:40 AM EDTBody Mass Index24.8806/24/2024 8:40 AM EDT
--- OUTSIDE RECORDS SUMMARY | 2025-02-14 14:58 | XMS_ITS | Clinical Summary ---
Author Organization [facility] Address [address] [place] [address] Care Team Providers Care Development Consultant Name Role Phone Unavailable Primary Care Provider Unavailabl e Social History Tobacco UseTypesPacks/DayYears UsedDateSmoking Tobacco: Never Assessed CommentsUnknownSex and Gender InformationValueDate RecordedSex Assigned at Not on fileLegal CxpQdwqxe88/29/2022 10:33 PM EDTGender IdentityNot on file Sexual OrientationNot on file Plan of Treatment Health MaintenanceDue DateLast DoneCommentsCT Schbojwdpslw1963Colonoscopy 1963Colorectal Cancer Baysfxdfs1963FIT-DNA1963FIT1963 FOBT1963 7473Mqhpharzcjfkh1963Depression Dgjcwaotp32/23/1975Pneumococcal Vaccine: Pediatrics (0 to 5 Years) and At-Risk Patients (6 to 64 Years) (1 of 2 - PCV)1982Pap Smear01/31/1984Adult Vsgwzwf7301/30/1985Cervical Cancer Gymsjquxi04/23/1993HPV/Eerqez1001/30/19939098Rrbnxtudf73/23/2003Zoster Vaccines (1 of 2)2013COVID-19 Vaccine ( - [...]
--- OUTSIDE RECORDS SUMMARY | 2025-02-14 14:58 | XMS_ITS | Patient Health Record ---
Author Organization [facility] Address [address] [place] [address] Care Team Providers Care Dormitory Supervisor Name Role Phone MELIDA AZARY Unavailable [phone] EKATERINA ROSALES Unavailable [phone] SANJANA DOUGHERTY Unavailable [phone] Reason For Referral No Information Problems Problem Type SNOMED Code ICD Code Onset Dates Problem Status W/U Status Risk Notes Problem Chronic respiratory failure (398 93942) Chronic respiratory failure with hypercapnia (J96.12) ActiveconfirmedProblemPulmonary hypertension (94461163)Pulmonary hypertension, unspecified (I27.20)MzgqprwpoccrsffTbdqbgoSsnew-xm-onfwywn hypercapnic respiratory failure (disorder) (8347249598319)Acute on chronic respiratory failure with hypercapnia (J96.22)ActiveconfirmedProblemCongestive heart failure (58484633)Congestive heart failure (I50.9)ActiveconfirmedProblemChronic respiratory failure (82589235)Chronic hypoxic respiratory failure (J96.11)Active nvsotsgskFshkiftApsnq-vd-denxxcb hypoxemic respiratory failure (disorder) (83485877643615347)Acute on chronic hypoxic respiratory failure (J96.21)Active confirmed Encounters Encounter Location Date Provider Diagnosis [address] [id number] 10/27/2024 RAFAEL AZAR Chronic hypoxic respiratory failure J96.11 ; Chronic respiratory failure with hypercapnia J96.12 ; Pulmonary hypertension, unspecified I27.20 and Congestive heart failure I50.[address] [id number] 07/04/2024 EKATERINA ROSALES Respiratory failur e, unspecified, unspecified whether with hypoxia or hypercapnia J96.90 and Pulmonary hypertension, unspecified I27.20 [address], [place] [id number] 07/06/2024 RAFAEL AZAR Respiratory failur e, unspecified, unspecified whether with hypoxia or hypercapnia J96.90 and Pulmonary hypertension, unspecified I27.[address] [id number] 07/09/2024 RAFAEL ZAAR Respiratory failur e, unspecified, unspecified whether with hypoxia or hypercapnia J96.90 and Pulmonary hypertension, unspecified I27.[address] [id number] 07/11/2024 SANJANA DOUGHERTY Respiratory failur e, unspecified, unspecified whether with hypoxia or hypercapnia J96.90 and Pulmonary hypertension, unspecified I27.20 [address] [id number] 07/13/2024 RAFAEL AZAR Respiratory failur e, unspecified, unspecified whether with hypoxia or hypercapnia J96.90 and Pulmonary hypertension, unspecified I27.[address] [id number] 07/16/2024 EKATERINA ROSALES Respiratory failur e, unspecified, unspecified whether with hypoxia or hypercapnia J96.90 and Pulmonary hypertension, unspecified I27.20 [address] [id number] 07/18/2024 EKATERINA ROSALES Respiratory failur e, unspecified, unspecified whether with hypoxia or hypercapnia J96.90 and Pulmonary hypertension, unspecified I27.20 [address] [id number] 07/20/2024 RAFAEL AZAR Respiratory failur e, unspecified, unspecified whether with hypoxia or hypercapnia J96.90 and Pulmonary hypertension, unspecified I27.[address] [id number] 07/23/2024 EMMETTE ROSALES Acute on chronic hypoxic respiratory failure J96.21 ; Acute on chronic respiratory failure with hypercapnia J96.22 ; Pulmonary hypertension, unspecified I27.20 and Congestive heart failure I50.[address] [id number] 07/25/2024 KELCEE ROSALES Acute on chronic hypoxic respiratory failure J96.21 ; Acute on chronic respiratory failure with hypercapnia J96.22 ; Pulmonary hypertension, unspecified I27.20 and Congestive heart failure I50.9 [place] [address] [id number] 07/27/2024 RAFAEL AZAR Acute on chronic hypoxic respiratory failure J96.21 ; Acute on chronic respiratory failure with hypercapnia J96.22 ; Pulmonary hypertension, unspecified I27.20 and Congestive heart failure I50.9 [place] [address] [id number] 07/30/2024 KELCEE ROSALES Acute on chronic hypoxic respiratory failure J96.21 ; Acute on chronic respiratory failure with hypercapnia J96.22 ; Pulmonary hypertension, unspecified I27.20 and Congestive heart failure I50.9 [place] [address] [id number] 08/01/2024 KELVLADIMIRE ROSALES Acute on chronic hypoxic respiratory failure J96.21 ; Acute on chronic respiratory failure with hypercapnia J96.22 ; Pulmonary hypertension, unspecified I27.20 and Congestive heart failure I50.9 [place] [address] [id number] 08/03/2024 KELVLADIMIRE ROSALES Acute on chronic hypoxic respiratory failure J96.21 ; Acute on chronic respiratory failure with hypercapnia J96.22 ; Pulmonary hypertension, unspecified I27.20 and Congestive heart failure I50.9 [place] [address] [id number] 08/06/2024 KELCEE ROSALES Acute on chronic hypoxic respiratory failure J96.21 ; Acute on chronic respiratory failure with hypercapnia J96.22 ; Pulmonary hypertension, unspecified I27.20 and Congestive heart failure I50.9 [place] [address] [id number] 08/08/2024 KELCEE ROSALES Acute on chronic hypoxic respiratory failure J96.21 ; Acute on chronic respiratory failure with hypercapnia J96.22 ; Pulmonary hypertension, unspecified I27.20 and Congestive heart failure I50.9 [place] [address] [id number] 08/10/2024 KELVLADIMIRE ROSALES Acute on chronic hypoxic respiratory failure J96.21 ; Acute on chronic respiratory failure with hypercapnia J96.22 ; Pulmonary hypertension, unspecified I27.20 and Congestive heart failure I50.9 [place] [address] [id number] 08/17/2024 RAFAEL AZAR Acute on chronic hypoxic respiratory failure J96.21 ; Acute on chronic respiratory failure with hypercapnia J96.22 ; Pulmonary hypertension, unspecified I27.20 and Congestive heart failure I50.9 [place] [address] [id number] 08/24/2024 RAFAEL AZAR Acute on chronic hypoxic respiratory failure J96.21 ; Acute on chronic respiratory failure with hypercapnia J96.22 ; Pulmonary hypertension, unspecified I27.20 and Congestive heart failure I50.9 [place] [address] [id number] 09/02/2024 RAFAEL AZAR Acute on chronic hypoxic respiratory failure J96.21 ; Acute on chronic respiratory failure with hypercapnia J96.22 ; Pulmonary hypertension, unspecified I27.20 and Congestive heart failure I50.9 [place] [address] [id number] 09/05/2024 EKATERINA ROSALES Acute on chronic hypoxic respiratory failure J96.21 ; Acute on chronic respiratory failure with hypercapnia J96.22 ; Pulmonary hypertension, unspecified I27.20 and Congestive heart failure I50.9 [place] [address] [id number] 09/08/2024 RAFAEL AZAR Acute on chronic hypoxic respiratory failure J96.21 ; Acute on chronic respiratory failure with hypercapnia J96.22 ; Pulmonary hypertension, unspecified I27.20 and Congestive heart failure I50.9 [place] [address] [id number] 09/10/2024 EKATERINA ROSALES Chronic hypoxic respiratory failure J96.11 ; Chronic respiratory failure with hypercapnia J96.12 ; Pulmonary hypertension, unspecified I27.20 and Congestive heart failure I50.9 [place] [address] [id number] 09/15/2024 RAFAEL AZAR Chronic hypoxic respiratory failure J96.11 ; Chronic respiratory failure with hypercapnia J96.12 ; Pulmonary hypertension, unspecified I27.20 and Congestive heart failure I50.9 [place] [address] [id number] 09/29/2024 RAFAEL AZAR Chronic hypoxic respiratory failure J96.11 ; Chronic respiratory failure with hypercapnia J96.12 ; Pulmonary hypertension, unspecified I27.20 and Congestive heart failure I50.9 [place] [address] [id number] 10/05/2024 RAFAEL AZAR Chronic hypoxic respiratory failure J96.11 ; Chronic respiratory failure with hypercapnia J96.12 ; Pulmonary hypertension, unspecified I27.20 and Congestive heart failure I50.9 [place] [address] [id number] 10/18/2024 RAFAEL AZAR Chronic hypoxic respiratory failure J96.11 ; Chronic respiratory failure with hypercapnia J96.12 ; Pulmonary hypertension, unspecified I27.20 and Congestive heart failure I50.9 [place] [address] [id number] 11/10/2024 RAFAEL AZAR Chronic hypoxic respiratory failure J96.11 ; Chronic respiratory failure with hypercapnia J96.12 ; Pulmonary hypertension, unspecified I27.20 and Congestive heart failure I50.9 [place] [address] [id number] 11/17/2024 RAFAEL AZAR Chronic hypoxic respiratory failure J96.11 ; Chronic respiratory failure with hypercapnia J96.12 ; Pulmonary hypertension, unspecified I27.20 and Congestive heart failure I50.9 [place] [address] [id number] 11/24/2024 RAFAEL AZAR Chronic hypoxic respiratory failure J96.11 ; Chronic respiratory failure with hypercapnia J96.12 ; Pulmonary hypertension, unspecified I27.20 and Congestive heart failure I50.9 [place] [address] [id number] 12/01/2024 RAFAEL AZAR Chronic hypoxic respiratory failure J96.11 ; Chronic respiratory failure with hypercapnia J96.12 ; Pulmonary hypertension, unspecified I27.20 and Congestive heart failure I50.9 [place] [address] [id number] 12/14/2024 RAFAEL AZAR Chronic hypoxic respiratory failure [...] whether with hypoxia or hypercapnia (ICD-10 - J96.90)07/09/2024Respiratory failure, unspecified, unspecified whether with hypoxia or hypercapnia (ICD-10 - J96.90)07/11/2024 Respiratory failure, unspecified, unspecified whether with hypoxia or hypercapnia (ICD-10 - J96.90)07/13/2024Respiratory failure, unspecified, unspecified whether with hypoxia or hypercapnia (ICD-10 - J96.90)07/16/2024 Respiratory failure, unspecified, unspecified whether with hypoxia or hypercapnia (ICD-10 - J96.90)07/18/2024Respiratory failure, unspecified, unspecified whether with hypoxia or hypercapnia (ICD-10 - J96.90)07/20/2024 Respiratory failure, unspecified, unspecified whether with hypoxia or hypercapnia (ICD-10 - J96.90)5Acute on chronic respiratory failure with hypercapnia (ICD-10 - J96.22)5Acute on chronic hypoxic respiratory failure (ICD-10 - J96.21)5Acute on chronic hypoxic respiratory failure (ICD-10 - J96.21)5Acute on chronic hypoxic respiratory failure (ICD-10 - J96.21)5Acute on chronic hypoxic respiratory failure (ICD-10 - J96.21)5Acute on chronic hypoxic respiratory failure (ICD-10 - J96.21) 5Acute on chronic hypoxic respiratory failure (ICD-10 - J96.21) 5Acute on chronic hypoxic respiratory failure (ICD-10 - J96.21) 5Acute on chronic hypoxic respiratory failure (ICD-10 - J96.21) 5Acute on chronic hypoxic respiratory failure (ICD-10 - J96.21) 5Acute on chronic hypoxic respiratory failure (ICD-10 - J96.21) 5Acute on chronic hypoxic respiratory failure (ICD-10 - J96.21) 5Acute on chronic hypoxic respiratory failure (ICD-10 - J96.21) 5Acute on chronic hypoxic respiratory failure (ICD-10 - J96.21) 5Acute on chronic hypoxic respiratory failure (ICD-10 - J96.21) 5Chronic respiratory failure with hypercapnia (ICD-10 - J96.12) 5Chronic hypoxic respiratory failure (ICD-10 - J96.11)5Chronic hypoxic respiratory failure (ICD-10 - J96.11)5Chronic hypoxic respiratory failure (ICD-10 - J96.11)5Chronic hypoxic respiratory failure (ICD-10 - J96.11)5Chronic hypoxic respiratory failure (ICD-10 - J96.11)5Chronic hypoxic respiratory failure (ICD-10 - J96.11)11/10/2024 Chronic hypoxic respiratory failure (ICD-10 - J96.11)5Chronic hypoxic respiratory failure (ICD-10 - J96.11)5Chronic hypoxic respiratory failure (ICD-10 - J96.11)5Chronic hypoxic respiratory failure (ICD-10 - J96.11)5Chronic hypoxic respiratory failure (ICD-10 - J96.11)09/08/2024 Acute on chronic respiratory failure with hypercapnia (ICD-10 - J96.22) 5Chronic respiratory failure with hypercapnia (ICD-10 - J96.12) 5Chronic respiratory failure with hypercapnia (ICD-10 - J96.12) 5Chronic respiratory failure with hypercapnia (ICD-10 - J96.12) 5Chronic respiratory failure with hypercapnia (ICD-10 - J96.12) 11/10/2024hronic respiratory failure with hypercapnia (ICD-10 - J96.12) 10/27/2024hronic respiratory failure with hypercapnia (ICD-10 - J96.12) 10/18/2024hronic respiratory failure with hypercapnia (ICD-10 - J96.12) 10/05/2024hronic respiratory failure with hypercapnia (ICD-10 - J96.12) 09/29/2024hronic respiratory failure with hypercapnia (ICD-10 - J96.12) 09/15/2024hronic respiratory failure with hypercapnia (ICD-10 - J96.12) 09/10/2024Pulmonary hypertension, unspecified (ICD-10 - I27.20)5Acute on chronic [...] chronic respiratory failure with hypercapnia (ICD-10 - J96.22)07/20/2024 Pulmonary hypertension, unspecified (ICD-10 - I27.20)07/23/2024Pulmonary hypertension, unspecified (ICD-10 - I27.20)07/18/2024Pulmonary hypertension, unspecified (ICD-10 - I27.20)07/16/2024Pulmonary hypertension, unspecified (ICD- 10 - I27.20)07/13/2024Pulmonary hypertension, unspecified (ICD-10 - I27.20) 07/11/2024Pulmonary hypertension, unspecified (ICD-10 - I27.20)07/09/2024 Pulmonary hypertension, unspecified (ICD-10 - I27.20)07/06/2024Pulmonary hypertension, unspecified (ICD-10 - I27.20)07/27/2024Pulmonary hypertension, unspecified (ICD-10 - I27.20)07/25/2024Pulmonary hypertension, unspecified (ICD- 10 - I27.20)07/23/2024ongestive heart failure (ICD-10 - I50.9)07/30/2024 Pulmonary hypertension, unspecified (ICD-10 - I27.20)08/01/2024Pulmonary hypertension, unspecified (ICD-10 - I27.20)08/03/2024Pulmonary hypertension, unspecified (ICD-10 - I27.20)08/06/2024Pulmonary hypertension, unspecified (ICD- 10 - I27.20)08/08/2024Pulmonary hypertension, unspecified (ICD-10 - I27.20) 08/10/2024ulmonary hypertension, unspecified (ICD-10 - I27.20)08/17/2024 Pulmonary hypertension, unspecified (ICD-10 - I27.20)08/24/2024Pulmonary hypertension, unspecified (ICD-10 - I27.20)09/02/2024Pulmonary hypertension, unspecified (ICD-10 - I27.20)09/05/2024Pulmonary hypertension, unspecified (ICD- 10 - I27.20)09/08/2024Pulmonary hypertension, unspecified (ICD-10 - I27.20) 09/10/2024ongestive heart failure (ICD-10 - I50.9)09/15/2024Pulmonary hypertension, unspecified (ICD-10 - I27.20)09/29/2024Pulmonary hypertension, unspecified (ICD-10 - I27.20)10/05/2024Pulmonary hypertension, unspecified (ICD- 10 - I27.20)10/18/2024Pulmonary hypertension, unspecified (ICD-10 - I27.20) 10/27/2024Pulmonary hypertension, unspecified (ICD-10 - I27.20)11/10/2024 Pulmonary hypertension, unspecified (ICD-10 - I27.20)11/17/2024Pulmonary hypertension, unspecified (ICD-10 - I27.20)11/24/2024Pulmonary hypertension, unspecified (ICD-10 - I27.20)12/01/2024Pulmonary hypertension, unspecified (ICD- 10 - I27.20)12/14/2024Pulmonary hypertension, unspecified (ICD-10 - I27.20) 5Congestive heart failure (ICD-10 - I50.9)5Congestive heart [...] (ICD-10 - I50.9)5Congestive heart failure (ICD-10 - I50.9)07/16/2024OtherSeoscar in collaboration and discussed plan of care with Dr. Rafael Azar07/18/2024OtherSeoscar in collaboration and discussed plan of care with Dr. Rafael Azar07/23/2024Padmini in collaboration and discussed plan of care with Dr. Rafael Azar07/25/2024OtherSeoscar in collaboration and discussed plan of care with Dr. Rafael Azar07/30/2024CarrollSeoscra in collaboration and discussed plan of care with Dr. Rafael Azar08/01/2024OtherDave in collaboration and discussed plan of care with Dr. Rafael Azar08/03/2024Other Seen in collaboration and discussed plan of care with Dr. Rafael Azar08/06/2024 OtherSeen in collaboration and discussed plan of care with Dr. Rafael Azar 08/08/2024OtherSeoscar in collaboration and discussed plan of care with Dr. Rafael Azar08/10/2024OtherDave in collaboration and discussed plan of care with Dr. Rafael Aazr09/05/2024Padmini in collaboration and discussed plan of care with Dr. Rafael Azar09/10/2024OtherDave in collaboration and discussed plan of care with Dr. Rafael Azar Plan Of Treatment No Information Insurance Providers Payer Name Payer Address Payer Phone Subscriber Number Group Number Insured Name Patient Relationship to Insured Coverage Start Date Coverage End Date [employer] [place] [address] [place] [address] [id number] Tao Redman - patient is the insured
--- OUTSIDE RECORDS SUMMARY | 2025-02-14 15:00 | XMS_ITS | CCD ---
Author Organization [facility] Inform ion Partnership [facility] Care Team Providers Care Collar Shaper Operator Name Role Phone PHYSICIAN, DEFAULT Unavailable Unavailable PHYSICIAN, DEFAULT Unavailable Unavailable CASON, LASHA Unavailable Unavailable PHYSICIAN, DEFAULT Unavailable Unavailable PHYSICIAN, DEFAULT Unavailable Unavailable CASON, LASHA Unavailable Unavailable DO Segundo Rawls Primary Care Provider DO Hong Jewell Admit Provider [phone] DO Hong Jewell Attending Provider MD Rehan [...] Other Provider MD Lowell Trejo Other Provider [phone] MD Benedicto Santamaria Other Provider MD Lul Austin Jr Other Provider MD Jagruti Ugalde Other Provider MD Brad Gan Other Provider [phone] EVAN, DR UNIQUE Sher Consulting Unavailable [...] Jarrell Emergency Provider William Esposito Unavailable Locorbachechristos STUDENT SERVICES COUNSELOR, Katie Primary Care Provider LocorbacheKatie sher APRN Attending Provider [phone] Unavailable Primary Care Provider Unavailjamie e LocorbacheKatie sher APRN Primary Care Provider Sheryl Santamaria DO Attending Provider PROVIDER, UNKNOWN Attending Unavailable PROVIDER, UNKNOWN Admitting Unavailable Unavailable Primary Care Provider Unavailjamie e Locorbachechristos PERSONALIZED LIVING ASSISTANT, Katie A Primary Care Provider Locorbacher PERSONALIZED LIVING ASSISTANT, Katie A Primary Care Provider LUCIANA BLISS Admitting Unavailable ANA FALK Referring Unav ailable KATARINA YU Consulting Unavailable QUNITIN FROMAN Attending Unavailable KAYLA ESTRADA Consulting Unavailable RELIEF, [...] of OnsetReaction(s) Facility (2 sources)cephalexin; Translations: [KEFLEX]Drug Rquuluq39-60-1765GIQGue [facility] Repository (10 sources)predniSONE; Translations: [PREDNISONE]Drug Xlpjvky59-47-4723Pninyakr [facility] Repository (8 sources)Cephalexin; Translations: [cephalexin]Drug Wiwdwxw62-80-6831Amqgtv, [facility] Medications Current Medications MedicationDrug Class(es)DatesSig (Normalized)Sig (Original)acetaminophen 325 mg / HYDROcodone bitartrate 5 mg oral tablet (1 source)Opioid AgonistStart: 09-09-2024 End: 95-23-0868munx 1 tablet by mouth every six hours as needed for pain and pain and painHYDROcodone-acetaminophen ([place]) 5-325 MG tablet Indications: Pain Take 1 tablet by mouth every 6 (six) hours if needed for severe pain 120 tablet 09/09/2024 10/09/2024 Activealbuterol 0.833 mg/ml / ipratropium bromide 0.167 mg/ml inhalation solution (1 source)Anticholinergic, beta2-Adrenergic AgonistStart: 49-71-6619zahv 3 mL by inhalation every four hours as needed for wheezingipratropium-albuteroL (DUONEB) 0.5 mg-3 mg(2.5 mg base)/3 mL nebulizer Indications: Acute respiratory failure with hypoxia ([facility]) Inhale 3 mL by nebulization every 4 (four) hours as needed for wheezing. 30 mL 2 07/03/2024 Activeapixaban 2.5 mg oral tablet (1 source)Factor Xa InhibitorStart: 23-77-1684mpzk 1 tablet by mouth in the morning, then take 1 tablet by mouth at bedtimeELIQUIS 2.5 mg tablet Take 1 tablet (2.5 mg total) by mouth in the morning and 1 tablet (2.5 mg total) before bedtime. 04/28/2024 Activeascorbic acid 500 mg oral tablet (7 sources)Vitamin CStart: 75-12-8903srml 1 tablet by mouth at breakfastAscorbic Acid (Vitamin C) (Vitamin C) 500 mg Tablet Active 500 MG PO With breakfast and lunch 60 30S2021 12:00amCalcium 1000 + D 1000-20 MG-MCG (1 source)take 1 tablet by mouth twice dailyCalcium 1000 + D 1000-20 MG-MCG 1 tablet with a meal Orally twice a day Activecalcium carbonate 1250 mg oral tablet (6 sources)Start: 33-38-2123Nmvyhds Carbonate (Oyster Shell Calcium 500) 500 mg calcium (1,250 mg) Tablet Active 1000 MG PO Twice daily 120 December 10, 2021 12:00amcalcium carbonate 298 mg / magnesium chloride 596 mg delayed release oral tablet (1 source)take 1 tablet by mouth every twenty-four hoursSlow-Mag 71.5-119 MG 1 TABLET Orally Once a day Activecarvedilol 12.5 mg oral tablet (1 source)alpha-Adrenergic Humberto, beta-Adrenergic BlockerStart: 41-74-9073hpxt 1 tablet by mouth in the morning, then take 1 tablet by mouth at bedtime carvediloL (COREG) 12.5 mg tablet Indications: hypertension Take 1 tablet (12.5 mg total) by mouth in the morning and 1 tablet (12.5 mg total) before bedtime. Indications: high blood pressure. 90 tablet 2 07/03/2024 Activecholecalciferol 0.01 mg oral tablet (6 sources)Vitamin DStart: 53-60-2263kkfi 1 tablet by mouth twice daily at mealtimeCholecalciferol (Vitamin D3) (Vitamin D3) 10 mcg (400 unit) Tablet Active 20 MCG PO Twice daily with meals December 10, 2021 12:00am0.3 ml darbepoetin anai 0.2 mg/ml prefilled syringe (1 source)Erythropoiesis-stimulating AgentStart: 05-07-0136itdzul 0.3 mL by subcutaneous injection every weekdarbepoetin anai-polysorbate (ARANESP) 60 mcg/0.3 mL syringe Indications: anemia due to renal failure Inject 0.3 mL (60 mcg total) under the skin once a week Indications: anemia due to kidney failure. 0.3 mL 5 07/05/2024 Activedocusate sodium 50 mg / sennosides, penitentiary 8.6 mg oral tablet (1 source)Start: 93-76-2974akmfjnulhk-docusate sodium (SENOKOT-S) 8.6-50 mg Take 2 tablets by mouth as needed for constipation. 30 tablet 07/03/2024 Active ferrous sulfate 324 mg delayed release oral tablet (7 sources)Start: 02-17-8245Khxdtse Sulfate 324 mg (65 mg iron) Tablet,Delayed Release (Dr/Ec) Active 324 MG PO Q48H 15 December 10, 2021 12:00amtake 1 tablet by mouth every twenty-four hoursFerrous Sulfate 324 MG 1 tablet Orally Once a day Not-Takingfolic acid 1 mg oral tablet (7 sources)Start: 57-17-9036tbmg 1 tablet by mouth once dailyFolic Acid 1 mg Tablet Active 1 MG PO Daily December 10, 2021 12:00amLORazepam 0.5 mg oral tablet (9 sources)BenzodiazepineStart: 08-26-2024 End: 63-86-7673rlbh 1 tablet by mouth every eight hours for anxietyLORazepam (Ativan) 0.5 MG tablet Indications: Anxiety disorder, unspecified type Take 1 tablet (0.5mg) by mouth every 8 (eight) hours if needed for anxiety for up to 14 days 42 tablet 08/26/2024 ActiveStart: 08-16-2024 End: 56-65-1804sdsf 1 tablet by mouth once dailyLORazepam (Ativan) 1 MG tablet Indications: Anxiety about treatment Take 1 tablet (1 mg) by mouth Daily Give daily before HD on dialysis days 30 tablet 08/16/2024 09/15/2024 ActiveStart: 07-26-2024 End: 03-47-8304nqtx 2 tablets by mouth once dailyLORazepam (Ativan) 0.5 MG tablet Indications: Anxiety about treatment Take 2 tablets (1 mg) by mouth Daily for 14 days Give daily before HD on Mon, , Mon, , Monday. 28 tablet 07/26/2024 08/16/2024 Discontinuedmagnesium oxide 400 mg oral tablet (8 sources)Start: 09-28-2023 End: 53-77-7081ooio 1 tablet by mouth twice dailyMagnesium Oxide 400 mg magnesium tablet Active 400 MG PO Twice daily 180 90 September 28, 2023 3:07pm metoprolol tartrate 100 mg oral tablet (15 sources)beta-Adrenergic BlockerStart: 09-28-2023 End: 44-37-5750Cilamjxoqv Tartrate 100 mg tablet Active 150 MG PO Daily 135 90 September 28, 2023 3:07pmStart: 09-28-2023 End: 65-50-2837aztp 150 mg by mouth once dailyMetoprolol Tartrate Active 150 MG PO Daily 135 90 September 28, 2023 3:07pmStart: 12-04-2021 End: 34-34-1210abtp 1 tablet by mouth once dailyMetoprolol Succinate 100 mg tablet extended release 24 hr Discontinued 100 MG PO Daily November 12:00am September 28, 2023 2:56pmmidodrine hydrochloride 10 mg oral tablet (1 source)alpha-Adrenergic AgonistStart: 79-53-0001lwlyqxeyd (PROAMATINE) 10 mg tablet Take 1 tablet (10 mg total) by mouth as needed (give pre/mid during dialysis as needed for SBP 07/03/2024 Activepantoprazole 40 mg delayed release oral tablet (1 source)Proton Pump InhibitorStart: 39-79-8073nrvo 1 tablet by mouth once daily before breakfastpantoprazole (PROTONIX) 40 mg EC tablet Take 1 tablet (40 mg total) by mouth every morning before breakfast. 05/24/2024 Activethiamine 200 mg oral tablet (7 sources)Start: 04-10-9032Efzushvf Hcl (Vitamin B1) 100 mg Tablet Active [...] capsule (6 sources)Histamine-1 Receptor AntagonistStart: 12-04-2021 End: 75-00-7446xlra 1 capsule by mouth twice dailyDiphenhydramine Hcl (Benadryl) 25 mg Capsule Discontinued 25 MG PO Twice daily December 04, 2021 12:00am December 10, 2021 1:24pmfurosemide 40 mg oral tablet (7 sources)Loop DiureticStart: 12-10-2021 End: 84-55-3118ruaz 1 tablet by mouth once dailyFurosemide 40 mg Tablet Discontinued 40 MG PO Daily at 0800 30 December 10, 2021 12:00am September 28, 2023 2:56pm Further refills, or dose adjustment, per Nephrology with Dr. Esposito. levoFLOXacin 750 mg oral tablet (6 sources)Quinolone AntimicrobialStart: 12-10-2021 End: 07-55-4938Dpilcfzekitt 750 mg Tablet Discontinued 750 MG PO Q48H 4 8 December 10, 2021 12:00am September 27, 2023 4:47pm Next dose is due on Monday. levothyroxine sodium 0.1 mg oral capsule (20 sources)l-ThyroxineStart: 09-28-2023 End: 46-59-1694fcda 1 capsule by mouth once dailyLevothyroxine 100 mcg capsule Discontinued 100 MCG PO Daily 90 90 September 28, 2023 3:06pm September 3:20pm Start: 12-04-2021 End: 13-40-2054zhta 1 tablet by mouth once dailyLevothyroxine 100 mcg tablet Active 100 MCG PO Daily September 28, 2023 12:00amtake 1 tablet by mouth once daily in the morningLevothyroxine Sodium 100 MCG 1 tablet in the morning on an empty stomach Orally Once a day Activelisinopril 20 mg oral tablet (6 sources)Angiotensin Converting Enzyme InhibitorStart: 12-04-2021 End: 47-55-6347iiil 1 tablet by mouth once dailyLisinopril 20 mg tablet Discontinued 20 MG PO Daily December 04, 2021 12:00am December 10, 2021 1:24pm magnesium chloride 598 mg delayed release oral tablet (6 sources)Start: 12-10-2021 End: 22-49-8778jweq 1 tablet by mouth once dailyMagnesium Chloride [...] capsule (15 sources)Proton Pump InhibitorStart: 12-04-2021 End: 38-85-2075gqdf 1 capsule by mouth once dailyOmeprazole 20 mg capsule,delayed release(DR/EC) Discontinued 20 MG PO Daily September 28, 2023 12:00amSeptember 28, 2023 3:09pmsodium bicarbonate 650 mg oral tablet (7 sources)Start: 12-10-2021 End: 28-94-7606vxbr 1 tablet by mouth three times dailySodium Bicarbonate 650 mg Tablet Discontinued 650 MG PO Three times daily December 10, 2021 12:00am September 28, 2023 2:57pm Problems Active Problems Problem ClassificationProblemDateDocumented DateEpisodic/ChronicAcute and unspecified renal failure (8 sources)Injury of kidney; Translations: [Acute kidney failure, unspecified] Onset: 288249-65-7069PwctopqaOujky myocardial infarction (11 sources)Myocardial infarction; Translations: [Myocardial infarction type 2] 25-75-8733TcqtrtsAtaefwu-related disorders (11 sources)Alcohol abuse; Translations: [Alcohol abuse, uncomplicated]Onset: 220566-29-8122YbsyfseIxnzedj disorders (3 sources)Anxiety disorder, unspecified; Translations: [Anxiety disorder]Onset: 172688-52-5376IxlcozbUtfrnyq dysrhythmias (20 sources)Atrial fibrillation; Translations: [Unspecified atrial fibrillation] Onset: 375048-26-0310FkwmolbJnvsnex kidney disease (3 sources)Chronic kidney disease stage 4; Translations: [Chronic kidney disease, stage 4 (severe)]Onset: 33-87-2624GcpkkqpXadhmqc kidney disease (2 sources)Chronic kidney disease; Translations: [Chronic kidney disease, stage III (moderate)]Chronic obstructive pulmonary disease and bronchiectasis (1 source)Chronic obstructive pulmonary disease, unspecified; Translations: [COPD UNSPECIFIED]Onset: 93-28-8131KgzszawAcvgqhiyngcb of device; implant or graft (1 source)Infection and inflammatory reaction due to other cardiac and vascular devices, implants and grafts,initial encounter; Translations: [Infection and inflammatory reaction due to other cardiac and vascular devices, implants and grafts, initial encounter]Onset: 80-03-6783VheuzbtrDevxwdkilt associated with dizziness or vertigo (3 sources)Dizziness and giddiness; Translations: [DIZZINESS AND GIDDINESS] Onset: 52-22-9164HnmbeuwcHujsazukea and other anemia (1 source)Anemia of renal disease; Translations: [Anemia in chronic kidney disease]ChronicDeficiency and other anemia (1 source)Anemia in chronic kidney diseaseChronicDeficiency and other anemia (6 sources)Macrocytic anemia; Translations: [Nutritional anemia, unspecified] 57-81-5593CjxjkbrtBrksrqybzk and other anemia (6 sources)Anemia; Translations: [Anemia, unspecified]20-62-9324Gmbusydz Deficiency and other anemia (2 sources)Anemia, unspecified; Translations: [Anemia, unspecified]Onset: 458121-89-6210MedkvlkrLaqpdxmppr and other anemia (1 source)Nutritional anemia, unspecified; Translations: [Unspecified deficiency anemia]19-65-3749DbjntarqHsnjynckid disorders (8 sources)Gastroesophageal reflux disease; Translations: [Gastro-esophageal reflux disease without esophagitis]82-74-5911RzllquoDrgtnyopu hypertension (17 sources)Hypertensive disorder; Translations: [Essential (primary) hypertension]Onset: 397802-23-4606XmsxhrkOmlfo and electrolyte disorders (17 sources)Hyponatremia; Translations: [Hypo-osmolality and hyponatremia]Onset: 165505-10-7588BlknfeuzUfojqjwxturp with complications and secondary hypertension (4 sources)Hypertensive urgency ; Translations: [Hypertensive urgency]Chronic Malaise and fatigue (8 sources)Weakness; Translations: [Asthenia]Onset: 26-72-6738Lzihfojl Miscellaneous mental health disorders (2 sources)Anxiety about treatment; Translations: [Other symptoms and signs involving emotional state]98-67-5777ZbywiwcbEuhfeslfzpth breast conditions (3 sources)Breast lump; Translations: [Unspecified lump in the left breast, unspecified quadrant]95-06-8914AqvkrxwtOmrcaoobjjy deficiencies (9 sources)Moderate protein energy malnutrition; Translations: [Moderate protein-calorie malnutrition]12-61-9902WigwghgKhonyurpavi deficiencies (20 sources)Ascorbic acid deficiency; Translations: [Ascorbic acid deficiency] 91-64-7381PcvqaneqVdmcq aftercare (1 source)Other terminal system operator (current) drug therapy; Translations: [OTH LONGTERM CURRENT DRUG THERAPY]Onset: 94-86-3240VfivkvzqDhysh and ill-defined heart disease (6 sources)Takotsubo cardiomyopathy; Translations: [Takotsubo syndrome] 64-75-6633QhamzopRthxb and ill-defined heart disease (5 sources)Takotsubo syndrome; Translations: [Takotsubo syndrome]12-10-2021 ChronicOther connective tissue disease (2 sources)Recurrent falls ; Translations: [Repeated falls]28-95-3951Ztcpsywz Other connective tissue disease (1 source)Repeated falls; Translations: [History of fall]43-01-2010YnhxkodnRfbge diseases of bladder and urethra (7 sources)Urethral stenosis; Translations: [Urethral stenosis]12-08-2021 EpisodicOther diseases of kidney and ureters (6 sources)Hydronephrosis; Translations: [Unspecified hydronephrosis]12-08-2021 EpisodicOther diseases of kidney and ureters (1 source)Unspecified hydronephrosis; Translations: [Hydronephrosis]12-10-2021 EpisodicOther hematologic conditions (1 source)Other specified abnormalities of plasma proteins; Translations: [OTH SPEC ABNORM PLASMA PROTEINS]Onset: 66-35-8445WlvrgystFcffp injuries and conditions due to external causes (2 sources)Other foreign object in respiratory tract, part unspecified causing other injury, initial encounter; Translations: [Foreign body in respiratory tree, unspecified]Onset: 240569-26-4128MhesrgtyEqcnv injuries and conditions due to external causes (1 source)Other injury of unspecified body region, initial encounter; Translations: [Other injury of unspecified body region, initial encounter]Onset: 95-84-1597TipumsrbSwtec lower respiratory disease (1 source)Respiratory distressOnset: 69-40-6416FlyjjjtbBhdke nutritional; endocrine; and metabolic disorders (7 sources)Hypomagnesemia; Translations: [Hypomagnesemia]04-21-1158KgvrwxnTaqkg nutritional; endocrine; and metabolic disorders (6 sources)Hypocalcemia; Translations: [Hypocalcemia]36-80-1894BnpasoiPwkqd nutritional; endocrine; and metabolic disorders (2 sources)Hypocalcemia; Translations: [Hypocalcemia]Onset: 881991-96-0389 ChronicOther nutritional; endocrine; and metabolic disorders (5 sources)Hypomagnesemia; Translations: [Disorders of magnesium metabolism] 46-58-4917VzvfykmTasbl screening for suspected conditions (not mental disorders or infectious disease) (3 sources)Mammography abnormal; Translations: [Other abnormal and inconclusive findings on diagnostic imagingof breast]Onset: 024954-66-4430LtmauehuObhwq skin disorders (3 sources)Breast changes; Translations: [Changes in skin texture]12-27-2023 EpisodicOther skin disorders (2 sources)Changes in skin texture; Translations: [Changes in skin texture] 28-94-2801HbyvcnfgZykif skin disorders (1 source)Localized swelling, mass and lump, right upper limb; Translations: [Localized swelling, mass and lump, right upper limb]Onset: 21-35-3802Gewsdsek Residual codes; unclassified (3 sources)Noncompliance with treatment; Translations: [Noncompliance]12-28-2023 EpisodicResidual codes; unclassified (1 source)Pain; Translations: [Pain, unspecified]41-75-1434MkkbvfgjCyjukzkrkck failure; insufficiency; arrest (adult) (4 sources)Acute respiratory failure; Translations: [Acute respiratory failure with hypoxia]Onset: 793992-86-8732PrpxrtkrNiphbhvmgt arthritis and related disease (9 sources)Rheumatoid arthritis; Translations: [Rheumatoid arthritis, unspecified]Onset: 075874-39-2518WfjewxfFboqmotsmx (except in labor) (2 sources)Sepsis, unspecified organism; Translations: [Severe sepsis without septic shock]Onset: 80-60-4986GbdrqokmNhktjkclw-related disorders (1 source)Nicotine dependence, cigarettes, uncomplicated; Translations: [NICOTINE DEPEND CIGARETTES UNCOMP]Onset: 09-67-0250ZqnwsiwCbyztow (7 sources)Vasovagal syncope; Translations: [Syncope and collapse]12-06-2021 EpisodicSystemic lupus erythematosus and connective tissue disorders (8 sources)Lupus erythematosus; Translations: [Systemic lupus erythematosus, unspecified]93-99-7771HnasqewMblgxoi disorders (12 sources)Hypothyroidism; Translations: [Hypothyroidism, unspecified]Onset: 460815-34-7539YecegobGynwibhiglpy (1 source)CONTACT W/AND (SUSP) EXPOS COVID-19; Translations: [CONTACT W/AND (SUSP) EXPOS COVID-19]Onset: 77-39-1152Mxczzydimkxr (4 sources)Large breast; Translations: [Increased size of breast]12-27-2023 Past or Other Problems Problem ClassificationProblemDateDocumented DateEpisodic/ChronicResidual codes; unclassified (1 source)Pain, unspecified; Translations: [Pain, unspecified]Onset: 06-14-2024 Episodic Results Test NameValueInterpretationReference RangeFacilityBasic Metabolic Panelon 65-35-1594Opebo gap [Moles/Vol]14.5 mmol/LNormal6.0-15.0The [facility] Physician GroupComment on above:Performed By: #### BMP, DIFF CBC #### [facility] [address] [place] [address] USACalcium [Mass/Vol]9.1 mg/dLNormal8.6-10.3The [facility] Physician GroupComment on above:Performed By: #### BMP, DIFF CBC #### [facility] [address] [place] [id number] USAChloride [Moles/Vol]95 mmol/VYzj23-521Nvv [facility] Physician GroupComment on above:Performed By: #### BMP, DIFF CBC #### [facility] [address] [place] [address] USACO2 [Moles/Vol]25.7 mmol/OGfpfay83.0-31.0The [facility] Physician GroupComment on above:Performed By: #### BMP, DIFF CBC #### [facility] [address] [place] [address] USACreatinine [Mass/Vol]3.15 mg/dLInvalid Interpretation Code 0.60-1.20The [facility] Physician GroupComment on above:Performed By: #### BMP, DIFF CBC #### [place] [address] USACreatinine Clr Calc Zrwgtpea51.90NoFrye [facility] Center Physician GroupComment on above:Result Comment: PERFORMED BY: [place] [address] PATHOLOGIST QUALITY ASSURANCE MANAGER DENILSON COSTA M.D.Performed By: #### BMP, DIFF CBC #### [place] [address] USAEstimated GFR16.175 mL/MinNoFrye Regional Medical Center Physician [facility] HospitalComment on above:Performed By: #### BMP, DIFF CBC #### [place] [address] USAGlucose [Mass/Vol]88 mg/tXPuerhq46-844Jvv [facility] Physician GroupComment on above:Result Comment: Random Glucose Reference Range is dependent on time and content of last meal. Glucose of more than 200 mg/dL in a nonstressed, ambulatory subject supports the diagnosis of Diabetes Mellitus. ADA recommended reference rangePerformed By: #### BMP, DIFF CBC #### [place] [address] USAPotassium [Moles/Vol]3.2 mmol/LLow3.5-5.1The [facility] Physician GroupComment on above:Performed By: #### BMP, DIFF CBC #### [place] [address] USASodium [Moles/Vol]132 mmol/SDvk790-336Cyx [facility] Physician GroupComment on above:Performed By: #### BMP, DIFF CBC #### [place] [address] USAUrea nitrogen [Mass/Vol]39 mg/dLHigh7-25The [facility] Physician GroupComment on above:Performed By: #### BMP, DIFF CBC #### [facility] [address] [place] [id number] USADiff and CBCon 77-83-7691Zamlhgdzhefa Ql (Bld)SlightNormal The [facility] Physician GroupComment on above:Performed By: #### BMP, DIFF CBC #### [facility] [address] [place] [address] USABand form neutrophils/100 WBC (Bld)1 %Normal0-5The [facility] Physician GroupComment on above:Performed By: #### BMP, DIFF CBC #### [facility] [address] [place] [address] USABasophils/100 WBC (Bld)1 %Normal0-2The [facility] Physician GroupComment on above:Performed By: #### BMP, DIFF CBC #### [place] [address] USAEosinophils/100 WBC (Bld)8 %High1-3The [facility] Physician GroupComment on above:Performed By: #### BMP, DIFF CBC #### [place] [address] USAErythrocyte distribution width (RBC) [Ratio]18.3 %High 11.9-15.3The [facility] Physician GroupComment on above:Performed By: #### BMP, DIFF CBC #### [place] [address] USAHematocrit (Bld) [Volume fraction]27.3 %Low34.0-46.4The [facility] Physician GroupComment on above:Performed By: #### BMP, DIFF CBC #### [place] [address] USAHemoglobin (Bld) [Mass/Vol]9.2 g/dLLow11.8-15.4The [facility] Physician GroupComment on above:Performed By: #### BMP, DIFF CBC #### [place] [id number] USAHypochromasiaSlightNormalThe [facility] Comment on above:Performed By: #### BMP, DIFF CBC #### [place] [address] USALymphocytes/100 WBC (Bld)23 %Gjgtnn17-53Zcs [facility] Physician GroupComment on above:Performed By: #### BMP, DIFF CBC #### [place] [address] USAMacrocytosisSlightNormAdventHealth New [facility] Physician [facility] Comment on above:Performed By: #### BMP, DIFF CBC #### [place] [address] USAMCH (RBC) [Entitic mass]30.6 kiKsboyz23.7-34.3The [facility] Physician GroupComment on above:Performed By: #### BMP, DIFF CBC #### [place] [address] USAMCV (RBC) [Entitic vol]90.2 xEByaqrm40-993Cwv [facility] Physician GroupComment on above:Performed By: #### BMP, DIFF CBC #### [place] [address] USAMean Corpuscular HGB Conc33.9 g/kEDfdqgq71.0-35.0The [facility] Physician [facility] HospitalComment on above:Performed By: #### BMP, DIFF CBC #### [place] [address] USAMetamyelocytes3 %High0-0The [facility] Phys[facility] Comment on above:Performed By: #### BMP, DIFF CBC #### [place] [address] USAMonocytes/100 WBC (Bld)7 %Normal2-11The [facility] Physician GroupComment on above:Performed By: #### BMP, DIFF CBC #### [place] [address] USAPlatelet EstimateDecreasedNormalNoSelect Medical OhioHealth Rehabilitation Hospitale [facility] Physician [facility] HospitalComment on above:Performed By: #### BMP, DIFF CBC #### [place] [address] USAPlatelet mean volume (Bld) [Entitic vol]7.7 fLNormal 6.3-10.7The [facility] Physician GroupComment on above:Result Comment: PERFORMED BY: [place] [address] PATHOLOGIST QUALITY ASSURANCE MANAGER DENILSON COSTA M.D.Performed By: #### BMP, DIFF CBC #### [place] [address] USAPlatelet MorphologyNormalNormalNormAdventHealth New Smyr[facility] Beach Physician GroupComment on above:Result Comment: PERFORMED BY: [place] [address] PATHOLOGIST QUALITY ASSURANCE MANAGER DENILSON COSTA M.D.Performed By: #### BMP, DIFF CBC #### [place] [address] USAPlatelets (Bld) [#/Vol]143 10*3/cAHrt239-537Yvx [facility] Physician GroupComment on above:Performed By: #### BMP, DIFF CBC #### [place] [address] USAPolychromasiaSAtrium Health [facility]cy [facility] Comment on above:Performed By: #### BMP, DIFF CBC #### [place] [address] USAPromyelocytes1 %High0-0The [facility] Comment on above:Performed By: #### BMP, DIFF CBC #### [place] [address] USARBC (Bld) [#/Vol]3.03 10*6/uLLow3.60-5.00The [facility] Physician GroupComment on above:Performed By: #### BMP, DIFF CBC #### [place] [address] USARouleauxSAtrium Health Mercy Physician [facility] HospitalComment on above:Performed By: #### BMP, DIFF CBC #### [place] [address] USASegmented neutrophils/100 WBC (Bld)56 %Vfvrcw24-76Bcc [facility]ician GroupComment on above:Performed By: #### BMP, DIFF CBC #### [place] [address] USAWBC (Bld) [#/Vol]8.3 10*3/uLNormal3.8-11.6The [facility] Physician GroupComment on above:Performed By: #### BMP, DIFF CBC #### [place] [address] USAVancomycin,Randomon 66-66-6879Bvlfwwzxls,Owejat32.5 ug/mL Normal5.0-20.0The [facility] Physician GroupComment on above:Order Comment: Date of last dose?: [id number] Time of last dose?: ult Comment: Last dose: - PERFORMED BY: [place] [address] PATHOLOGIST QUALITY ASSURANCE MANAGER DENILSON COSTA M.D.Performed By: #### BMP, DIFF CBC #### [place] [address] USABasic Metabolic Panelon 56-04-1635Tfxpi gap [Moles/Vol] 12.0 mmol/LNormal6.0-15.0The [facility] Physician GroupComment on above:Performed By: #### BMP, DIFF CBC #### [place] [address] USACalcium [Mass/Vol]9.0 mg/dLNormal8.6-10.3The [facility] Physician GroupComment on above:Performed By: #### BMP, DIFF CBC #### [place] [address] USAChloride [Moles/Vol]96 mmol/TRjk42-138Npn [facility] Physician GroupComment on above:Performed By: #### BMP, DIFF CBC #### [place] [address] USACO2 [Moles/Vol]28.4 mmol/VEjnaoj19.0-31.0The [facility] Physician GroupComment on above:Performed By: #### BMP, DIFF CBC #### [place] [address] USACreatinine [Mass/Vol]2.13 mg/dLInvalid Interpretation Code 0.60-1.20The [facility] Physician GroupComment on above:Performed By: #### BMP, DIFF CBC #### [place] [address] USACreatinine Clr Calc Brivcelk61.33NormWright-Patterson Medical Centere [facility] Physician GroupComment on above:Result Comment: PERFORMED BY: [place] [address] PATHOLOGIST QUALITY ASSURANCE MANAGER DENILSON COSTA M.D.Performed By: #### BMP, DIFF CBC #### [place] [address] USAEstimated GFR25.868 mL/MinNoFrye Regional Medical Center Physician GroupComment on above:Performed By: #### BMP, DIFF CBC #### [place] [address] USAGlucose [Mass/Vol]86 mg/uXDvhdog93-703Dhr [facility]ician GroupComment on above:Result Comment: Random Glucose Reference Range is dependent on time and content of last meal. Glucose of more than 200 mg/dL in a nonstressed, ambulatory subject supports the diagnosis of Diabetes Mellitus. ADA recommended reference rangePerformed By: #### BMP, DIFF CBC #### [place] [address] USAPotassium [Moles/Vol]3.4 mmol/LLow3.5-5.1The [facility] Physician GroupComment on above:Performed By: #### BMP, DIFF CBC #### [place] [address] USASodium [Moles/Vol]133 mmol/IMsg137-020Kms [facility]ician GroupComment on above:Performed By: #### BMP, DIFF CBC #### [place] [address] USAUrea nitrogen [Mass/Vol]26 mg/dLHigh7-25The [facility]ician GroupComment on above:Performed By: #### BMP, DIFF CBC #### [place] [address] USADiff and CBCon 23-82-2632Ubujffmdgani Ql (Bld)SlightNormal The [facility] Physician GroupComment on above:Performed By: #### BMP, DIFF CBC #### [place] [address] USAEosinophils/100 WBC (Bld)4 %High1-3The [facility]ician GroupComment on above:Performed By: #### BMP, DIFF CBC #### [place] [address] USAErythrocyte distribution width (RBC) [Ratio]18.4 %High 11.9-15.3The [facility] Physician GroupComment on above:Performed By: #### BMP, DIFF CBC #### [place] [address] USAHematocrit (Bld) [Volume fraction]31.3 %Low34.0-46.4The [facility] Physician GroupComment on above:Performed By: #### BMP, DIFF CBC #### [place] [address] USAHemoglobin (Bld) [Mass/Vol]10.4 g/dLLow11.8-15.4The [facility]ician GroupComment on above:Performed By: #### BMP, DIFF CBC #### [place] [address] USAHypochromasiaSlightNormalThe [facility] Comment on above:Performed By: #### BMP, DIFF CBC #### [place] [address] USALymphocytes/100 WBC (Bld)19 %Yrjkop96-09Fsj [facility]ician GroupComment on above:Performed By: #### BMP, DIFF CBC #### [place] [address] USAMCH (RBC) [Entitic mass]30.1 rqLrsrgp93.7-34.3The [facility]ician GroupComment on above:Performed By: #### BMP, DIFF CBC #### [place] [address] USAMCV (RBC) [Entitic vol]90.7 aMWgwuoq04-238Six [facility]ician GroupComment on above:Performed By: #### BMP, DIFF CBC #### [place] [address] USAMean Corpuscular HGB Conc33.2 g/xBWuqrdz65.0-35.0The [facility] Physician GroupComment on above:Performed By: #### BMP, DIFF CBC #### [place] [address] USAMetamyelocytes2 %High0-0The [facility] Comment on above:Performed By: #### BMP, DIFF CBC #### [place] [address] USAMonocytes/100 WBC (Bld)8 %Normal2-11The [facility]ician GroupComment on above:Performed By: #### BMP, DIFF CBC #### [place] [address] USAMyelocytes1 %High0-0The [facility]ician GroupComment on above:Performed By: #### BMP, DIFF CBC #### [place] [address] USAPlatelet EstimateNormalNormalNormAdventHealth New Smyrna Beach Physician GroupComment on above:Performed By: #### BMP, DIFF CBC #### [place] [address] USAPlatelet mean volume (Bld) [Entitic vol]7.6 fLNormal 6.3-10.7The [facility]ician GroupComment on above:Result Comment: PERFORMED BY: [place] [address] PATHOLOGIST QUALITY ASSURANCE MANAGER DENILSON COSTA M.D.Performed By: #### BMP, DIFF CBC #### [place] [address] USAPlatelet MorphologyNormalNormalNormAdventHealth New [facility] Beach Physician GroupComment on above:Result Comment: PERFORMED BY: [place] [address] PATHOLOGIST QUALITY ASSURANCE MANAGER DENILSON COSTA M.D.Performed By: #### BMP, DIFF CBC #### [facility] [address] [place] [address] USAPlatelets (Bld) [#/Vol]153 10*3/wOUpdhlx891-412Dll [facility]ician GroupComment on above:Performed By: #### BMP, DIFF CBC #### [place] [address] USAPromyelocytes1 %High0-0The [facility] Comment on above:Performed By: #### BMP, DIFF CBC #### [place] [address] USARBC (Bld) [#/Vol]3.45 10*6/uLLow3.60-5.00The [facility]ician GroupComment on above:Performed By: #### BMP, DIFF CBC #### [place] [address] USASegmented neutrophils/100 WBC (Bld)66 %Lbqjxi67-57Rps [facility]ician GroupComment on above:Performed By: #### BMP, DIFF CBC #### [place] [address] USAWBC (Bld) [#/Vol]10.0 10*3/uLNormal3.8-11.6The [facility]ician GroupComment on above:Performed By: #### BMP, DIFF CBC #### [place] [address] USABasic Metabolic Panelon 87-70-9048Ifanc gap [Moles/Vol] 15.6 mmol/LHigh6.0-15.0The [facility] Physician GroupComment on above:Performed By: #### BMP, SCAN CBC #### [place] [address] USACalcium [Mass/Vol]8.7 mg/dLNormal8.6-10.3The [facility] Physician GroupComment on above:Performed By: #### BMP, SCAN CBC #### [place] [address] USAChloride [Moles/Vol]92 mmol/EHfp82-897Bvh [facility] HospitalComment on above:Performed By: #### BMP, SCAN CBC #### [place] [address] USACO2 [Moles/Vol]25.1 mmol/KYgcjnp10.0-31.0The [facility] HospitalComment on above:Performed By: #### BMP, SCAN CBC #### [place] [address] USACreatinine [Mass/Vol]3.07 mg/dLInvalid Interpretation Code 0.60-1.20The Trinity HealthComment on above:Performed By: #### BMP, SCAN CBC #### [place] [address] USACreatinine Clr Calc Drjknwlf27.25NoDayton VA Medical CenterComment on above:Result Comment: PERFORMED BY: [place] [address] PATHOLOGIST QUALITY ASSURANCE MANAGER DENILSON COSTA M.D.Performed By: #### BMP, SCAN CBC #### [place] [address] USAEstimated GFR16.683 mL/MinNoDayton VA Medical CenterComment on above:Performed By: #### BMP, SCAN CBC #### [place] [address] USAGlucose [Mass/Vol]76 mg/gDTtvdzw45-021Xyu [facility] HospitalComment on above:Result Comment: Random Glucose Reference Range is dependent on time and content of last meal. Glucose of more than 200 mg/dL in a nonstressed, ambulatory subject supports the diagnosis of Diabetes Mellitus. ADA recommended reference rangePerformed By: #### BMP, SCAN CBC #### [place] [address] USAPotassium [Moles/Vol]3.7 mmol/LNormal3.5-5.1The [facility] HospitalComment on above:Result Comment: Hemolysis is present at a level that could interfere with the result. Contact lab if redraw is requiredPerformed By: #### BMP, SCAN CBC #### [facility] [address] [place] [address] USASodium [Moles/Vol]129 mmol/ZKxj264-524Ipb [facility]ician GroupComment on above:Performed By: #### BMP, SCAN CBC #### [facility] [address] [place] [address] USAUrea nitrogen [Mass/Vol]51 mg/dLHigh7-25The [facility]ician GroupComment on above:Performed By: #### BMP, SCAN CBC #### [facility] [address] [place] [address] USAScan and CBCon 52-92-8584Rfpgzvnnvywv Ql (Bld)Moderate NormalThe [facility] Physician GroupComment on above:Performed By: #### BMP, SCAN CBC #### [facility] [address] [place] [address] USABasophils (Bld) [#/Vol]0.1 10*3/uLNormal0.0-0.2The [facility]ician GroupComment on above:Performed By: #### BMP, SCAN CBC #### [place] [address] USABasophils/100 WBC (Bld)0.5 %Normal.The [facility]ician GroupComment on above:Performed By: #### BMP, SCAN CBC #### [place] [address] USAEosinophils (Bld) [#/Vol]0.2 10*3/uLNormal0.0-0.45The [facility]ician GroupComment on above:Performed By: #### BMP, SCAN CBC #### [place] [address] USAEosinophils/100 WBC (Bld)0.8 %Normal.The [facility]ician GroupComment on above:Performed By: #### BMP, SCAN CBC #### [facility] [address] [place] [address] USAErythrocyte distribution width (RBC) [Ratio]18.6 %High 11.9-15.3The [facility]ician GroupComment on above:Performed By: #### BMP, SCAN CBC #### [facility] [address] [place] [address] USAHematocrit (Bld) [Volume fraction]26.8 %Low34.0-46.4The [facility]ician GroupComment on above:Performed By: #### BMP, SCAN CBC #### [facility] [address] [place] [address] USAHemoglobin (Bld) [Mass/Vol]9.0 g/dLLow11.8-15.4The [facility]ician GroupComment on above:Performed By: #### BMP, SCAN CBC #### [facility] [address] [place] [address] USAHypochromasiaSlightNormalThe [facility] Comment on above:Performed By: #### BMP, SCAN CBC #### [facility] [address] [place] [address] USALymphocytes (Bld) [#/Vol]2.0 10*3/uLNormal1.00-4.8The [facility]ician GroupComment on above:Performed By: #### BMP, SCAN CBC #### [facility] [address] [place] [address] USALymphocytes/100 WBC (Bld)10.0 %Normal.The [facility]ician GroupComment on above:Performed By: #### BMP, SCAN CBC #### [facility] [address] [place] [address] USAMCH (RBC) [Entitic mass]30.0 hgCvnmyo27.7-34.3The [facility] Physician GroupComment on above:Performed By: #### BMP, SCAN CBC #### [facility] [address] [place] [address] USAMCV (RBC) [Entitic vol]89.1 xFYsfisz82-149Lgm [facility]ician GroupComment on above:Performed By: #### BMP, SCAN CBC #### [facility] [address] [place] [address] USAMean Corpuscular HGB Conc33.7 g/cBRvzirp28.0-35.0The [facility]ician GroupComment on above:Performed By: #### BMP, SCAN CBC #### [place] [address] USAMonocytes (Bld) [#/Vol]0.8 10*3/uLNormal0.0-0.8The [facility] Physician GroupComment on above:Performed By: #### BMP, SCAN CBC #### [place] [address] USAMonocytes/100 WBC (Bld)4.0 %Normal.The [facility] Physician GroupComment on above:Performed By: #### BMP, SCAN CBC #### [place] [address] USANeutrophils (Bld) [#/Vol]16.6 10*3/uLHigh1.8-7.7The [facility] Physician GroupComment on above:Performed By: #### BMP, SCAN CBC #### [place] [address] USANeutrophils/100 WBC (Bld)84.7 %Normal.The [facility] Physician GroupComment on above:Performed By: #### BMP, SCAN CBC #### [place] [address] USANRBC%0.1 /100{WBC}Normal0-0.5The [facility] Comment on above:Performed By: #### BMP, SCAN CBC #### [place] [address] USAPlatelet EstimateDecreasedNormalNormalThe [facility] Physician GroupComment on above:Performed By: #### BMP, SCAN CBC #### [facility] [address] [place] [address] USAPlatelet mean volume (Bld) [Entitic vol]8.0 fLNormal 6.3-10.7The [facility]ician GroupComment on above:Performed By: #### BMP, SCAN CBC #### [place] [address] USAPlatelet MorphologyNormalNormalNormalThe [facility]ician GroupComment on above:Result Comment: PERFORMED BY: [place] [address] PATHOLOGIST QUALITY ASSURANCE MANAGER DENILSON COSTA M.D.Performed By: #### BMP, SCAN CBC #### [facility] [address] [place] [address] USAPlatelets (Bld) [#/Vol]148 10*3/uOJez501-299Isu [facility]ician GroupComment on above:Performed By: #### BMP, SCAN CBC #### [facility] [address] [place] [address] USARBC (Bld) [#/Vol]3.01 10*6/uLLow3.60-5.00The [facility]ician GroupComment on above:Performed By: #### BMP, SCAN CBC #### [place] [address] USAWBC (Bld) [#/Vol]19.7 10*3/uLHigh3.8-11.6The [facility]ician GroupComment on above:Performed By: #### BMP, SCAN CBC #### [place] [address] USABasic Metabolic Panelon 37-18-1624Bxayp gap [Moles/Vol] 13.9 mmol/LNormal6.0-15.0The [facility]ician GroupComment on above:Performed By: #### DIFF CBC, BMP #### [place] [address] USACalcium [Mass/Vol]9.0 mg/dLNormal8.6-10.3The [facility]ician GroupComment on above:Performed By: #### DIFF CBC, BMP #### [place] [address] USAChloride [Moles/Vol]90 mmol/VFxo00-610Cqv [facility]ician GroupComment on above:Performed By: #### DIFF CBC, BMP #### [place] [address] USACO2 [Moles/Vol]28.1 mmol/FKaagtk39.0-31.0The [facility] Physician GroupComment on above:Performed By: #### DIFF CBC, BMP #### [place] [address] USACreatinine [Mass/Vol]2.14 mg/dLInvalid Interpretation Code 0.60-1.20The [facility]ician GroupComment on above:Performed By: #### DIFF CBC, BMP #### [place] [address] USACreatinine Clr Calc Ytcxzkcy46.93NormAdventHealth New Smyrna Beach Physician GroupComment on above:Result Comment: PERFORMED BY: [place] [address] PATHOLOGIST QUALITY ASSURANCE MANAGER DENILSON COSTA M.D.Performed By: #### DIFF CBC, BMP #### [place] [address] USAEstimated GFR25.724 mL/MinNoFrye Regional Medical Center Physician [facility] HospitalComment on above:Performed By: #### DIFF CBC, BMP #### [place] [address] USAGlucose [Mass/Vol]85 mg/jYSyeoul76-614Apu [facility]ician GroupComment on above:Result Comment: Random Glucose Reference Range is dependent on time and content of last meal. Glucose of more than 200 mg/dL in a nonstressed, ambulatory subject supports the diagnosis of Diabetes Mellitus. ADA recommended reference rangePerformed By: #### DIFF CBC, BMP #### [place] [address] USAPotassium [Moles/Vol]4.0 mmol/LInvalid Interpretation Code 3.5-5.1The [facility]ician GroupComment on above:Performed By: #### DIFF CBC, BMP #### [place] [address] USASodium [Moles/Vol]128 mmol/YOgw140-707Rcm [facility]ician GroupComment on above:Performed By: #### DIFF CBC, BMP #### [place] [address] USAUrea nitrogen [Mass/Vol]29 mg/dLInvalid Interpretation Code7-25The [facility]ician GroupComment on above:Performed By: #### DIFF CBC, BMP #### [facility] [address] [place] [address] USADiff and CBCon 07-11-6625Intnuletazob Ql (Bld)SlightNormal The [facility] Physician GroupComment on above:Performed By: #### DIFF CBC, BMP #### [facility] [address] [place] [address] USABand form neutrophils/100 WBC (Bld)4 %Normal0-5The [facility]ician GroupComment on above:Performed By: #### DIFF CBC, BMP #### [facility] [address] [place] [address] USABasophils/100 WBC (Bld)0 %Normal0-2The [facility]ician GroupComment on above:Performed By: #### DIFF CBC, BMP #### [place] [address] USAEosinophils/100 WBC (Bld)0 %Low1-3The [facility]ician GroupComment on above:Performed By: #### DIFF CBC, BMP #### [place] [address] USAErythrocyte distribution width (RBC) [Ratio]18.8 %High 11.9-15.3The [facility] Physician GroupComment on above:Performed By: #### DIFF CBC, BMP #### [place] [address] USAHematocrit (Bld) [Volume fraction]28.3 %Low34.0-46.4The [facility]ician GroupComment on above:Performed By: #### DIFF CBC, BMP #### [facility] [address] [place] [address] USAHemoglobin (Bld) [Mass/Vol]9.5 g/dLLow11.8-15.4The [facility]ician GroupComment on above:Performed By: #### DIFF CBC, BMP #### [place] [address] USALymphocytes/100 WBC (Bld)6 %Rcv56-91Oog [facility]ician GroupComment on above:Performed By: #### DIFF CBC, BMP #### [address] (RBC) [Entitic mass]29.9 vfHotzww24.7-34.3The [facility] Physician GroupComment on above:Performed By: #### DIFF CBC, BMP #### [address] (RBC) [Entitic vol]88.9 hZTvicdq78-850Qjc [facility]ician GroupComment on above:Performed By: #### DIFF CBC, BMP #### [place] [address] USAMean Corpuscular HGB Conc33.6 g/pGBnfnoo10.0-35.0The [facility]ician GroupComment on above:Performed By: #### DIFF CBC, BMP #### [place] [address] USAMonocytes/100 WBC (Bld)9 %Normal2-11The [facility]ician GroupComment on above:Performed By: #### DIFF CBC, BMP #### [place] [address] USAPlatelet EstimateNormalNormalNormAdventHealth New Smyrna Beach Physician GroupComment on above:Performed By: #### DIFF CBC, BMP #### [place] [address] USAPlatelet mean volume (Bld) [Entitic vol]8.2 fLNormal 6.3-10.7The [facility]ician GroupComment on above:Performed By: #### DIFF CBC, BMP #### [place] [address] USAPlatelet MorphologyNormalNormalNormAdventHealth New Smy[facility] Beach Physician GroupComment on above:Result Comment: PERFORMED BY: [place] [address] PATHOLOGIST QUALITY ASSURANCE MANAGER DENILSON COSTA M.D.Performed By: #### DIFF CBC, BMP #### [facility] [address] [place] [address] USAPlatelets (Bld) [#/Vol]165 10*3/dYIjcesy494-410Czf [facility]ician GroupComment on above:Performed By: #### DIFF CBC, BMP #### [place] [address] USARBC (Bld) [#/Vol]3.18 10*6/uLLow3.60-5.00The [facility]ician GroupComment on above:Performed By: #### DIFF CBC, BMP #### [place] [address] USARBC morphology finding Nom (Bld)NormalNormalNormalThe [facility]ician GroupComment on above:Performed By: #### DIFF CBC, BMP #### [place] [address] USASegmented neutrophils/100 WBC (Bld)81 %Qpmg58-14Eci [facility]ician GroupComment on above:Performed By: #### DIFF CBC, BMP #### [place] [address] USAWBC (Bld) [#/Vol]40.8 10*3/uLHigh3.8-11.6The [facility]ician GroupComment on above:Performed By: #### DIFF CBC, BMP #### [place] [address] USAComprehensive Metabolic Panelon 32-09-1508Uzcmtsx [Mass/Vol]3.6 g/dLNormal3.5-5.7The [facility]ician GroupComment on above: Performed By: #### BMP, DIFF CBC #### [place] [address] USAAlbumin/Globulin [Mass ratio]1.2 {ratio}NormalThe [facility] Physician GroupComment on above:Performed By: #### BMP, DIFF CBC #### [place] [address] USAALP [Catalytic activity/Vol]36 U/WDrovbn39-187Cey [facility]ician GroupComment on above:Performed By: #### BMP, DIFF CBC #### [facility] [address] [place] [address] USAALT [Catalytic activity/Vol]14 U/LNormal7-52The [facility]ician GroupComment on above:Performed By: #### BMP, DIFF CBC #### [facility] [address] [place] [address] USAAnion gap [Moles/Vol]17.0 mmol/LHigh6.0-15.0The [facility]ician GroupComment on above:Performed By: #### BMP, DIFF CBC #### [facility] [address] [place] [address] USAAST [Catalytic activity/Vol]25 U/FJkonkr16-40Ryb [facility]ician GroupComment on above:Performed By: #### BMP, DIFF CBC #### [place] [address] USABilirubin [Mass/Vol]1.8 mg/dLHigh0.3-1.0The [facility]ician GroupComment on above:Result Comment: Samples from patients who have taken Naproxen have shown spurious elevation in Total Bilirubin levels. A metabolite of Naproxen, O-desmethylnaproxen, has been shown to interfere with the Jenvalenciaik-Kleverf method for measuring Total Bilirubin.Performed By: #### BMP, DIFF CBC #### [facility] [address] [place] [address] USACalcium [Mass/Vol]9.3 mg/dLNormal8.6-10.3The [facility]ician GroupComment on above:Performed By: #### BMP, DIFF CBC #### [facility] [address] [place] [id number] USAChloride [Moles/Vol]90 mmol/LJyf19-973Uwn [facility]ician GroupComment on above:Performed By: #### BMP, DIFF CBC #### [facility] [address] [place] [address] USACO2 [Moles/Vol]21.8 mmol/FJechts59.0-31.0The [facility]ician GroupComment on above:Performed By: #### BMP, DIFF CBC #### [facility] [address] [place] [address] USACreatinine [Mass/Vol]3.88 mg/dLHigh0.60-1.20The [facility]ician GroupComment on above:Performed By: #### BMP, DIFF CBC #### [facility] [address] [place] [address] USACreatinine Clr Calc Fqvoxadt33.25NoFrye Regional [facility] Center Physician GroupComment on above:Result Comment: PERFORMED BY: [facility] [address] [place] [address] PATHOLOGIST QUALITY ASSURANCE MANAGER DENILSON COSTA M.D.Performed By: #### BMP, DIFF CBC #### [place] [address] USAEstimated GFR12.596 mL/MinNoFrye Regional Medical Center Physician [facility] HospitalComment on above:Performed By: #### BMP, DIFF CBC #### [facility] [address] [place] [address] USAGlobulin (S) [Mass/Vol]3.0 g/dLNoFrye Regional Medical Center Physician GroupComment on above:Performed By: #### BMP, DIFF CBC #### [place] [address] USAGlucose [Mass/Vol]82 mg/oSMiyokp22-432Ita [facility] GroupComment on above:Result Comment: Random Glucose Reference Range is dependent on time and content of last meal. Glucose of more than 200 mg/dL in a nonstressed, ambulatory subject supports the diagnosis of Diabetes Mellitus. ADA recommended reference rangePerformed By: #### BMP, DIFF CBC #### [facility] [address] [place] [address] USAPotassium [Moles/Vol]5.8 mmol/LHigh3.5-5.1The [facility]ician GroupComment on above:Performed By: #### BMP, DIFF CBC #### [place] [address] USAProtein [Mass/Vol]6.6 g/dLNormal6.4-8.9The [facility]ician GroupComment on above:Performed By: #### BMP, DIFF CBC #### [place] [address] USASodium [Moles/Vol]123 mmol/LOff scale yyw380-195Anp [facility]ician GroupComment on above:Result Comment: Critical Result Called to and read back by: DANNY NOLAND at: 09/18/2024 05:03:31 by:HARPERPerformed By: #### BMP, DIFF CBC #### [place] [address] USAUrea nitrogen [Mass/Vol]59 mg/dLHigh7-25The [facility] Physician GroupComment on above:Performed By: #### BMP, DIFF CBC #### [place] [address] USAScan and CBCon 82-72-9768Ymuvmlrnnunc Ql (Bld)Moderate NormalThe [facility] Physician GroupComment on above:Performed By: #### BMP, DIFF CBC #### [place] [address] USABasophils (Bld) [#/Vol]0.1 10*3/uLNormal0.0-0.2The [facility] Physician GroupComment on above:Performed By: #### BMP, DIFF CBC #### [place] [address] USABasophils/100 WBC (Bld)0.1 %Normal.The [facility] Physician GroupComment on above:Performed By: #### BMP, DIFF CBC #### [place] [address] USAEosinophils (Bld) [#/Vol]0.1 10*3/uLNormal0.0-0.45The [facility] Physician GroupComment on above:Performed By: #### BMP, DIFF CBC #### [place] [address] USAEosinophils/100 WBC (Bld)0.3 %Normal.The [facility] Physician GroupComment on above:Performed By: #### BMP, DIFF CBC #### [facility] [address] [place] [address] USAErythrocyte distribution width (RBC) [Ratio]19.5 %High 11.9-15.3The [facility] Physician GroupComment on above:Performed By: #### BMP, DIFF CBC #### [facility] [address] [place] [address] USAHematocrit (Bld) [Volume fraction]28.1 %Low34.0-46.4The [facility] Physician GroupComment on above:Performed By: #### BMP, DIFF CBC #### [place] [address] USAHemoglobin (Bld) [Mass/Vol]9.4 g/dLLow11.8-15.4The [facility] Physician GroupComment on above:Performed By: #### BMP, DIFF CBC #### [place] [address] USALymphocytes (Bld) [#/Vol]0.6 10*3/uLLow1.00-4.8The [facility] Physician GroupComment on above:Performed By: #### BMP, DIFF CBC #### [place] [address] USALymphocytes/100 WBC (Bld)1.8 %Normal.The [facility] Physician GroupComment on above:Performed By: #### BMP, DIFF CBC #### [place] [address] USAMCH (RBC) [Entitic mass]30.0 roInqgsg44.7-34.3The [facility] Physician GroupComment on above:Performed By: #### BMP, DIFF CBC #### [place] [address] USAMCV (RBC) [Entitic vol]89.9 hWOzhroz67-909Tca [facility] Physician GroupComment on above:Performed By: #### BMP, DIFF CBC #### [place] [address] USAMean Corpuscular HGB Conc33.3 g/nGEounni65.0-35.0The [facility] Physician GroupComment on above:Performed By: #### BMP, DIFF CBC #### [place] [address] USAMonocytes (Bld) [#/Vol]2.6 10*3/uLHigh0.0-0.8The [facility] Physician GroupComment on above:Performed By: #### BMP, DIFF CBC #### [place] [address] USAMonocytes/100 WBC (Bld)7.3 %Normal.The [facility] Physician GroupComment on above:Performed By: #### BMP, DIFF CBC #### [place] [address] USANeutrophils (Bld) [#/Vol]31.9 10*3/uLHigh1.8-7.7The [facility] Physician GroupComment on above:Performed By: #### BMP, DIFF CBC #### [place] [address] USANeutrophils/100 WBC (Bld)90.5 %Normal.The [facility] Physician GroupComment on above:Performed By: #### BMP, DIFF CBC #### [place] [address] USANRBC%0.0 /100{WBC}Normal0-0.5The [facility] Comment on above:Performed By: #### BMP, DIFF CBC #### [place] [address] USAPlatelet EstimateNormalNormalNormAdventHealth New Smyrna Beach Physician GroupComment on above:Performed By: #### BMP, DIFF CBC #### [place] [address] USAPlatelet mean volume (Bld) [Entitic vol]7.9 fLNormal 6.3-10.7The [facility] Physician GroupComment on above:Performed By: #### BMP, DIFF CBC #### [place] [address] USAPlatelet MorphologyNormalNormalNormAdventHealth New Smyrna Beach Physician GroupComment on above:Result Comment: PERFORMED BY: [place] [address] PATHOLOGIST QUALITY ASSURANCE MANAGER DENILSON COSTA M.D.Performed By: #### BMP, DIFF CBC #### [place] [address] USAPlatelets (Bld) [#/Vol]153 10*3/cSTanlci739-591Lud [facility] Physician GroupComment on above:Performed By: #### BMP, DIFF CBC #### [place] [address] USARBC (Bld) [#/Vol]3.13 10*6/uLLow3.60-5.00The [facility] Physician GroupComment on above:Performed By: #### BMP, DIFF CBC #### [place] [address] USAWBC (Bld) [#/Vol]35.3 10*3/uLHigh3.8-11.6The [facility] Physician GroupComment on above:Performed By: #### BMP, DIFF CBC #### [place] [address] USAABO/Rh Retypeon 73-52-3599KDP/RH Recheck ResultPositive NormalThe [facility] Physician GroupComment on above:Result Comment: PERFORMED BY: [place] [address] PATHOLOGIST QUALITY ASSURANCE MANAGER DENILSON COSTA M.D.Basic Metabolic Panelon 01-35-6998Uuode gap [Moles/Vol]14.2 mmol/LNormal6.0-15.0The [facility] Physician GroupComment on above:Performed By: #### BMP, DIFF CBC #### [place] [address] USACalcium [Mass/Vol]8.8 mg/dLNormal8.6-10.3The [facility] Physician GroupComment on above:Performed By: #### BMP, DIFF CBC #### [place] [address] USAChloride [Moles/Vol]91 mmol/YGur11-597Rfm [facility] Physician GroupComment on above:Performed By: #### BMP, DIFF CBC #### [facility] [address] [place] [address] USACO2 [Moles/Vol]25.7 mmol/TErewxa69.0-31.0The [facility] Physician GroupComment on above:Performed By: #### BMP, DIFF CBC #### [facility] [address] [place] [address] USACreatinine [Mass/Vol]3.49 mg/dLHigh0.60-1.20The [facility] Physician GroupComment on above:Performed By: #### BMP, DIFF CBC #### [place] [address] USACreatinine Clr Calc Lmvqcwyc62.85NoFrye [facility] Physician [facility] HospitalComment on above:Result Comment: PERFORMED BY: [place] [address] PATHOLOGIST QUALITY ASSURANCE MANAGER DENILSON COSTA M.D.Performed By: #### BMP, DIFF CBC #### [place] [address] USAEstimated GFR14.303 mL/MinNoFrye Regional Medical Center Physician [facility] HospitalComment on above:Performed By: #### BMP, DIFF CBC #### [place] [address] USAGlucose [Mass/Vol]64 mg/tUJvs94-749Kmj [facility] Physician GroupComment on above:Result Comment: Random Glucose Reference Range is dependent on time and content of last meal. Glucose of more than 200 mg/dL in a nonstressed, ambulatory subject supports the diagnosis of Diabetes Mellitus. ADA recommended reference rangePerformed By: #### BMP, DIFF CBC #### [place] [address] USAPotassium [Moles/Vol]4.9 mmol/LNormal3.5-5.1The [facility] Physician GroupComment on above:Performed By: #### BMP, DIFF CBC #### [place] [address] USASodium [Moles/Vol]126 mmol/WOxg337-680Stk [facility] Physician GroupComment on above:Performed By: #### BMP, DIFF CBC #### [place] [address] USAUrea nitrogen [Mass/Vol]43 mg/dLHigh7-25The [facility] Physician GroupComment on above:Performed By: #### BMP, DIFF CBC #### [place] [address] USABlood Cultureon 07-64-9398Xvlsqcbx identified Cx Nom (Bld) NO GROWTH 5 DAYS PERFORMED BY: [address] [place] [address] PATHOLOGIST QUALITY ASSURANCE MANAGER DENILSON COSTA M.D.NormalThe [facility] Physician GroupComment on above: Performed By: #### BMP, DIFF CBC #### [place] [address] USACT abdomen pelvis w conon 52-49-3539CA abdomen pelvis w [facility] [place] [address] [place] [address] CT Scan Report Signed Patient: Orestes Alvares MR#: [id number] : 1965 Acct:[id number] Age/Sex: 59 / F ADM Date: 09/17/24 Loc: Room: [address] [place] [address] Type: DIS IN Attending Dr: Rosalinda Alfonso [...] Bunch M.D. 09/17/2024 11:11 AM Dictation Location: [place] [address] Transcribed By: [facility] 09/17/24 1111 Dictated By: Zhen Bunch DO 09/17/24 1102 Signed By: 09/17/24 1111NoFry[facility] Physician [facility] General HospitalClostridium Difficileon 52-01-2077Knwmpljyqji DifficileNegativeNormalNegativeThe [facility] Physician GroupComment on above:Order Comment: > or = to 3 loose/watery stools in the last 24 HRS? Y Is patient on promotility agents or tube feeding? NResult Comment: Testing performed by RT-PCR PERFORMED BY: [place] [address] PATHOLOGIST QUALITY ASSURANCE MANAGER DENILSON COSTA M.D.Performed By: #### BMP, DIFF CBC #### [facility] [address] [place] [address] USAComprehensive Metabolic Panelon 52-02-2597Frayyag [Mass/Vol]3.3 g/dLLow3.5-5.7The [facility] Physician GroupComment on above: Performed By: #### CUU #### [place] [address] USAAlbumin/Globulin [Mass ratio]1.3 {ratio}NormalThe [facility] Physician GroupComment on above:Performed By: #### CUU #### [place] [address] USAALP [Catalytic activity/Vol]32 U/LSje04-886Rjy [facility] Physician GroupComment on above:Performed By: #### CUU #### [place] [address] USAALT [Catalytic activity/Vol]13 U/LNormal7-52The [facility] Physician GroupComment on above:Performed By: #### CUU #### [place] [address] USAAnion gap [Moles/Vol]13.8 mmol/LNormal6.0-15.0The [facility] Physician GroupComment on above:Performed By: #### CUU #### [place] [address] USAAST [Catalytic activity/Vol]23 U/BIpsgnz23-81Khy [facility] Physician GroupComment on above:Performed By: #### CUU #### [place] [address] USABilirubin [Mass/Vol]0.7 mg/dLNormal0.3-1.0The [facility] Physician GroupComment on above:Performed By: #### CUU #### [place] [address] USACalcium [Mass/Vol]8.8 mg/dLNormal8.6-10.3The [facility] Physician GroupComment on above:Performed By: #### CUU #### [place] [address] USAChloride [Moles/Vol]91 mmol/KEeh03-505Ebr [facility] Physician GroupComment on above:Performed By: #### CUU #### [place] [address] USACO2 [Moles/Vol]26.6 mmol/RBocnyq35.0-31.0The [facility] Physician GroupComment on above:Performed By: #### CUU #### [place] [address] USACreatinine [Mass/Vol]3.57 mg/dLHigh0.60-1.20The [facility] Physician GroupComment on above:Performed By: #### CUU #### [place] [address] USACreatinine Clr Calc Crlgwjma84.49NormAdventHealth New Smyrna Beach Physician GroupComment on above:Result Comment: PERFORMED BY: [place] [address] PATHOLOGIST QUALITY ASSURANCE MANAGER DENILSON COSTA M.D.Performed By: #### CUU #### [place] [address] USAEstimated GFR13.919 mL/MinNoFrye Regional Medical Center Physician [facility] HospitalComment on above:Performed By: #### CUU #### [place] [address] USAGlobulin (S) [Mass/Vol]2.5 g/dLNoFrye Regional Medical Center Physician [facility] HospitalComment on above:Performed By: #### CUU #### [place] [address] USAGlucose [Mass/Vol]72 mg/wJMrffru65-436Mlx [facility] Physician GroupComment on above:Result Comment: Random Glucose Reference Range is dependent on time and content of last meal. Glucose of more than 200 mg/dL in a nonstressed, ambulatory subject supports the diagnosis of Diabetes Mellitus. ADA recommended reference rangePerformed By: #### CUU #### [place] [address] USAPotassium [Moles/Vol]5.4 mmol/LHigh3.5-5.1The [facility] Physician GroupComment on above:Performed By: #### CUU #### [place] [address] USAProtein [Mass/Vol]5.8 g/dLLow6.4-8.9The [facility] Physician GroupComment on above:Performed By: #### CUU #### [place] [address] USASodium [Moles/Vol]126 mmol/PXzk605-998Bqu [facility] Physician GroupComment on above:Performed By: #### CUU #### [facility] [address] [place] [address] USAUrea nitrogen [Mass/Vol]49 mg/dLHigh7-25The [facility] Physician GroupComment on above:Performed By: #### CUU #### [place] [address] USACortisolon 42-28-8108Qlsulmel57.3 ug/dLNormalThe [facility] Physician GroupComment on above:Result Comment: Reference range: AM 6 - 24 ug/dl PM <10 ug/dl [facility] family medicine chair and method: ELIZABETH UNICEL DXI, POLYCLONAL ANTIBODY CORTISOL ASSAY. PERFORMED BY: [place] [address] PATHOLOGIST QUALITY ASSURANCE MANAGER DENILSON COSTA M.D.Performed By: #### CUU #### [place] [address] USADiff and CBCon 88-40-7845Zqtqovvyllyh Ql (Bld)Moderate NormalThe [facility] Physician GroupComment on above:Performed By: #### CUU #### [place] [address] USABand form neutrophils/100 WBC (Bld)28 %High0-5The [facility] Physician GroupComment on above:Performed By: #### CUU #### [place] [address] USAErythrocyte distribution width (RBC) [Ratio]19.5 %High 11.9-15.3The [facility] Physician GroupComment on above:Performed By: #### CUU #### [place] [address] USAHematocrit (Bld) [Volume fraction]20.3 %Low34.0-46.4The [facility] Physician GroupComment on above:Performed By: #### CUU #### [facility] [address] [place] [address] USAHemoglobin (Bld) [Mass/Vol]6.6 g/dLLow11.8-15.4The [facility] Physician GroupComment on above:Performed By: #### CUU #### [facility] [address] [place] [address] USALymphocytes/100 WBC (Bld)2 %Yqa08-39Msh [facility] Physician GroupComment on above:Performed By: #### CUU #### [facility] [address] [place] [address] USAMCH (RBC) [Entitic mass]30.2 jwGmjruy98.7-34.3The [facility] Physician GroupComment on above:Performed By: #### CUU #### [facility] [address] [place] [address] USAMCV (RBC) [Entitic vol]92.7 dDKedxxz42-036Ysi [facility] Physician GroupComment on above:Performed By: #### CUU #### [place] [address] USAMean Corpuscular HGB Conc32.6 g/pJMnugjf53.0-35.0The [facility] Physician GroupComment on above:Performed By: #### CUU #### [facility] [address] [place] [address] USAMetamyelocytes4 %High0-0The [facility] Comment on above:Performed By: #### CUU #### [place] [address] USAMonocytes/100 WBC (Bld)7 %Normal2-11The [facility] Physician GroupComment on above:Performed By: #### CUU #### [place] [address] USAPlatelet EstimateNormalNormalNormalThe [facility] Physician GroupComment on above:Performed By: #### CUU #### [place] [address] USAPlatelet mean volume (Bld) [Entitic vol]7.2 fLNormal 6.3-10.7The [facility] Physician GroupComment on above:Performed By: #### CUU #### [place] [address] USAPlatelet MorphologyNormalNormalNoFrye Regional [facility] Center Physician GroupComment on above:Result Comment: PERFORMED BY: [place] [address] PATHOLOGIST QUALITY ASSURANCE MANAGER DENILSON COSTA M.D.Performed By: #### CUU #### [place] [address] USAPlatelets (Bld) [#/Vol]177 10*3/tVJcbtsi062-533Vlf [facility] Physician GroupComment on above:Performed By: #### CUU #### [place] [address] USARBC (Bld) [#/Vol]2.19 10*6/uLLow3.60-5.00The [facility] Physician GroupComment on above:Performed By: #### CUU #### [place] [address] USASegmented neutrophils/100 WBC (Bld)60 %Fmuwuu05-17Iwm [facility] Physician GroupComment on above:Performed By: #### CUU #### [place] [address] USAToxic VacuolationSlightNoFrye Regional Medical Center Physician Group Comment on above:Performed By: #### CUU #### [place] [address] USAWBC (Bld) [#/Vol]29.0 10*3/uLHigh3.8-11.6The [facility] Physician GroupComment on above:Performed By: #### CUU #### [place] [address] USAAnisocytosis Ql (Bld)ModerateNoSelect Medical OhioHealth Rehabilitation Hospitale [facility] Physician GroupComment on above:Performed By: #### BMP, DIFF CBC #### [facility] [address] [place] [address] USABand form neutrophils/100 WBC (Bld)16 %High0-5The [facility] Physician GroupComment on above:Performed By: #### BMP, DIFF CBC #### [place] [address] USAErythrocyte distribution width (RBC) [Ratio]19.1 %High 11.9-15.3The [facility] Physician GroupComment on above:Performed By: #### BMP, DIFF CBC #### [place] [address] USAHematocrit (Bld) [Volume fraction]20.7 %Low34.0-46.4The [facility] Physician GroupComment on above:Performed By: #### BMP, DIFF CBC #### [place] [address] USAHemoglobin (Bld) [Mass/Vol]6.8 g/dLLow11.8-15.4The [facility] Physician GroupComment on above:Performed By: #### BMP, DIFF CBC #### [place] [address] USALymphocytes/100 WBC (Bld)4 %Tkg46-86Hrt [facility] Physician GroupComment on above:Performed By: #### BMP, DIFF CBC #### [place] [address] USAMCH (RBC) [Entitic mass]30.5 qvKirobl31.7-34.3The [facility] Physician GroupComment on above:Performed By: #### BMP, DIFF CBC #### [place] [address] USAMCV (RBC) [Entitic vol]92.9 pZYfrykk17-980Ize [facility] Physician GroupComment on above:Performed By: #### BMP, DIFF CBC #### [place] [address] USAMean Corpuscular HGB Conc32.9 g/fKBwvqfi24.0-35.0The [facility] Physician GroupComment on above:Performed By: #### BMP, DIFF CBC #### [place] [address] USAMetamyelocytes4 %High0-0The [facility] Comment on above:Performed By: #### BMP, DIFF CBC #### [place] [address] USAMonocytes/100 WBC (Bld)5 %Normal2-11The [facility] Physician GroupComment on above:Performed By: #### BMP, DIFF CBC #### [place] [address] USAPlatelet EstimateNormalNormalNormAdventHealth New Smyrna Beach Physician GroupComment on above:Performed By: #### BMP, DIFF CBC #### [place] [address] USAPlatelet mean volume (Bld) [Entitic vol]7.5 fLNormal 6.3-10.7The [facility] Physician GroupComment on above:Performed By: #### BMP, DIFF CBC #### [place] [address] USAPlatelet MorphologyNormalNormalNormWright-Patterson Medical Centere [facility] Physician GroupComment on above:Result Comment: PERFORMED BY: [place] [address] PATHOLOGIST QUALITY ASSURANCE MANAGER DENILSON COSTA M.D.Performed By: #### BMP, DIFF CBC #### [place] [address] USAPlatelets (Bld) [#/Vol]203 10*3/mVKbltbk102-275Cza [facility] Physician GroupComment on above:Performed By: #### BMP, DIFF CBC #### [place] [address] USARBC (Bld) [#/Vol]2.22 10*6/uLLow3.60-5.00The [facility] Physician GroupComment on above:Performed By: #### BMP, DIFF CBC #### [place] [address] USASegmented neutrophils/100 WBC (Bld)73 %Mevq06-47Sbw [facility] Physician [facility] HospitalComment on above:Performed By: #### BMP, DIFF CBC #### [facility] [address] [place] [address] USAWBC (Bld) [#/Vol]25.3 10*3/uLHigh3.8-11.6The [facility] Physician [facility] HospitalComment on above:Performed By: #### BMP, DIFF CBC #### [facility] [address] [place] [id number] USAECG 12 lead ECGon 35-93-6217KSH 12 lead [facility] [place] [address] [place] [address] Electrocardiograph Report Signed Patient: Orestes Alvares MR#: [id number] : 1965 Acct:[id number] Age/Sex: 59 / F ADM Date: 09/17/24 Loc: Room: [address] [place] [address] Type: ADM IN Attending Dr: Natalie Pak [...] replaced Atrial flutter Confirmed by LUCINA BLAIR [facility], [place] ([id number]) on 09/18/2024 4:08:51 PM Referred By: Electronically Signed By: KYLAH VERDUGO MD [facility] Transcribed By: MUS Signed By Kylah Verdugo MD, FACC 09/18/24 1608NoF[facility]e [facility] Center Physician GroupGastrointestinal Profile, PCRon [id number] F 40/41Not detectedNormalNot DetectedThe [facility] Physician [facility] HospitalComment on above:Order Comment: SOURCE OF SPECIMEN: stool Performed By: #### BMP, DIFF CBC #### [facility] [address] [place] [address] USAAstrovirusNot detectedNormalNot DetectedThe Trinity HealthComment on above:Order Comment: SOURCE OF SPECIMEN: stool Performed By: #### BMP, DIFF CBC #### [facility] [address] [place] [address] USAC Difficile Toxin A/BNot detectedNormalNot DetectedThe Trinity HealthComment on above:Order Comment: SOURCE OF SPECIMEN: stoolPerformed By: #### BMP, DIFF CBC #### [facility] [address] [place] [address] USACampylobacterNot detectedNormalNot DetectedThe Trinity HealthComment on above:Order Comment: SOURCE OF SPECIMEN: stool Performed By: #### BMP, DIFF CBC #### [facility] [address] [place] [address] USACryptosporidiumNot detectedNormalNot DetectedThe Trinity HealthComment on above:Order Comment: SOURCE OF SPECIMEN: stool Performed By: #### BMP, DIFF CBC #### [facility] [address] [place] [address] USACyclospora cayetanensisNot detectedNormalNot DetectedThe [facility] Physician [facility] HospitalComment on above:Order Comment: SOURCE OF SPECIMEN: stoolPerformed By: #### BMP, DIFF CBC #### [facility] [address] [place] [address] USAE coli [id number] applicableNormalNot DetectedThe [facility] Physician [facility] HospitalComment on above:Order Comment: SOURCE OF SPECIMEN: stool Performed By: #### BMP, DIFF CBC #### [facility] [address] [place] [address] USAEntamoeba histolyticaNot detectedNormalNot DetectedThe Trinity HealthComment on above:Order Comment: SOURCE OF SPECIMEN: stoolPerformed By: #### BMP, DIFF CBC #### [facility] [address] [place] [address] USAEnteroaggregative E coliNot detectedNormalNot DetectedThe [facility] Physician [facility] HospitalComment on above:Order Comment: SOURCE OF SPECIMEN: stoolPerformed By: #### BMP, DIFF CBC #### [facility] [address] [place] [address] USAEnteropathogenic E coliNot detectedNormalNot DetectedThe Trinity HealthComment on above:Order Comment: SOURCE OF SPECIMEN: stoolPerformed By: #### BMP, DIFF CBC #### [facility] [address] [place] [address] USAEnterotoxigenic E coliNot detectedNormalNot DetectedThe Trinity HealthComment on above:Order Comment: SOURCE OF SPECIMEN: stoolPerformed By: #### BMP, DIFF CBC #### [address] [address] USAGiardia lambliaNot detectedNormalNot DetectedThe [facility] HealthComselect specialty hospital on above:Order Comment: SOURCE OF SPECIMEN: stool Performed By: #### BMP, DIFF CBC #### [address] [address] USANorovirus GI/GIINot detectedNormalNot DetectedThe Trinity HealthComment on above:Order Comment: SOURCE OF SPECIMEN: stoolPerformed By: #### BMP, DIFF CBC #### [address] [address] USAPlesiomonas shigelloidesNot detectedNormalNot DetectedThe Trinity HealthComment on above:Order Comment: SOURCE OF SPECIMEN: stoolPerformed By: #### BMP, DIFF CBC #### [address] [address] USARotavirus ANot detectedNormalNot DetectedThe Trinity HealthComment on above:Order Comment: SOURCE OF SPECIMEN: stool Performed By: #### BMP, DIFF CBC #### [facility] [address] [place] [address] USASalmonellaNot detectedNormalNot DetectedThe Trinity HealthComment on above:Order Comment: SOURCE OF SPECIMEN: stool Performed By: #### BMP, DIFF CBC #### [facility] [address] [place] [address] USASapovirusNot detectedNormalNot DetectedThe Trinity HealthComment on above:Order Comment: SOURCE OF SPECIMEN: stoolResult Comment: Performed at: - Lab[address], [place], [place] [id number] Crown Presser: Meli Bisohp MD, Phone: [phone] PERFORMED BY: [place] [address] PATHOLOGIST QUALITY ASSURANCE MANAGER DENILSON COSTA M.D.Performed By: #### BMP, DIFF CBC #### [place] [id number] GYAGewqn-hplsm-lfrdorqrv E coliNot detectedNormalNot Detected The [facility] Physician [facility] HospitalComment on above:Order Comment: SOURCE OF SPECIMEN: stoolPerformed By: #### BMP, DIFF CBC #### [place] [address] USAShigella/Enteroinvasive E coliNot detectedNormalNot DetectedThe [facility] Physician [facility] HospitalComment on above:Order Comment: SOURCE OF SPECIMEN: stoolPerformed By: #### BMP, DIFF CBC #### [place] [id number] USAVibrioNot detectedNormalNot DetectedThe [facility] Physician [facility] HospitalComment on above:Order Comment: SOURCE OF SPECIMEN: stool Performed By: #### BMP, DIFF CBC #### [place] [id number] USAVibrio choleraeNot detectedNormalNot DetectedThe [facility] Physician [facility] HospitalComment on above:Order Comment: SOURCE OF SPECIMEN: stool Performed By: #### BMP, DIFF CBC #### [place] [id number] USAYersinia enterocoliticaNot detectedNormalNot DetectedThe [facility] Physician Jasper General HospitalComment on above:Order Comment: SOURCE OF SPECIMEN: stoolPerformed By: #### BMP, DIFF CBC #### [place] [id number] USAGlucose Poct Glucometerson 07-21-3057Sqhfjco0Fjq8: Cleaned MeterNormalThe [facility] Physician [facility]asper [facility] HospitalComment on above:Result Comment: PERFORMED BY: [place] [address] PATHOLOGIST QUALITY ASSURANCE MANAGER DENILSON COSTA M.D.Performed By: #### BMP, DIFF CBC #### [place] [address] USAGlucose [Mass/Vol]109 mg/dLNoFrye Regional Medical Center Physician GroupComment on above:Result Comment: Random Glucose Reference Range is dependent on time and content of last meal. Glucose of more than 200 mg/dL in a nonstressed, ambulatory subject supports the diagnosis of Diabetes Mellitus.Performed By: #### BMP, DIFF CBC #### [place] [address] USAGlucose [Mass/Vol]81 mg/dLNoFrye Regional Medical Center Physician GroupComment on above:Result Comment: Random Glucose Reference Range is dependent on time and content of last meal. Glucose of more than 200 mg/dL in a nonstressed, ambulatory subject supports the diagnosis of Diabetes Mellitus. PERFORMED BY: [place] [address] PATHOLOGIST QUALITY ASSURANCE MANAGER DENILSON COSTA M.D.Performed By: #### BMP, DIFF CBC #### [place] [address] USAGlucose [Mass/Vol]105 mg/dLNoFrye Regional Medical Center Physician GroupComment on above:Result Comment: Random Glucose Reference Range is dependent on time and content of last meal. Glucose of more than 200 mg/dL in a nonstressed, ambulatory subject supports the diagnosis of Diabetes Mellitus. PERFORMED BY: [place] [address] PATHOLOGIST QUALITY ASSURANCE MANAGER DENILSON COSTA M.D.Performed By: #### BMP, DIFF CBC #### [place] [address] USALactic Acidon 35-42-6903Deovyww [Moles/Vol]2.4 mmol/LOff scale high0.5-1.9The [facility] Physician GroupComment on above:Result Comment: Critical Result : Called to and read back by: ANGELA TREJO at: 09/17/2024 10:11:42 by:KB Lactic Acid reference range has been updated to 0.5 ? 1.9 mmol/L and the critical range of 2.0 or greater. PERFORMED BY: [place] [address] PATHOLOGIST QUALITY ASSURANCE MANAGER DENILSON COSTA M.D.Performed By: #### LACTIC #### [place] [address] USALactic Acid Reflexon 73-92-9294Ckffwu Acid Reflex1.5 mmol/LNormal0.5-1.9The [facility] Physician GroupComment on above:Result Comment: Lactic Acid reference range has been updated to 0.5 ? 1.9 mmol/L and the critical range of 2.0 or greater. PERFORMED BY: [place] [address] PATHOLOGIST QUALITY ASSURANCE MANAGER DENILSON COSTA M.D.Performed By: #### BMP, DIFF CBC #### [place] [address] USALeukoReduced RBCon 22-45-3990UokebRgwflbp RBCTRANSFUSED 09/17/24 1003NoF[facility]e [facility] Center Physician GroupType and Screenon 04-33-5105WGU and Rh group Nom (Bld)Blood group A Rh(D) positiveAdventHealth Wauchula Physician GroupComment on above:Order Comment: Transfuse now? Y Number of units to transfuse now? 1 Transfuse now? Y Number of units to transfuse now? 1Result Comment: PERFORMED BY: [place] [address] PATHOLOGIST QUALITY ASSURANCE MANAGER DENILSON COSTA M.D.XR chest 1V portableon 06-06-5847YP chest 1V portable [facility] [place] [address] [place] [address] XRay Report Signed Patient: Orestes Alvares MR#: [id number] : 1965 Acct:[id number] Age/Sex: 59 / F ADM Date: 09/17/24 Loc: Room: [address] [place] [address] Type: DIS IN Attending Dr: Rosalinda Alfonso [...] Bunch M.D. 09/17/2024 9:12 AM Dictation Location: [facility]16 Transcribed By: [facility] 09/17/24911 Dictated By: Zhen Bunch DO 09/17/24909 Signed By: 09/17/249[address] Physician GroupCT WRIST RT WO CONTon 09-16-2024 [...] Antoine Martinez MD on 09/16/2024 11:16 PMNormalProMedica [facility] HEMOGLOBINon 19-70-7689Ghylvjicrd (Bld) [Mass/Vol]6.9 g/dLCritically low12.0 - 16.0 g/dLNOCA HealthcareComment on above:RESULTS CALLED TO SÁNCHEZ IRVERA [facility] @BY Cristela Ewing at 2103 Interpretation and review of laboratory resultsAbnormalNOMS HealthcareCLINISYNC NOMS HealthcareCBC AND AUTO DIFFon 30-36-2362AABGZXDV BASOPHIL0.0 X10E9/LNormal 0.0-0.2[facility] Phoenix HospitalComment on above:Performed By: #### CBCA CMP, , 2776-04 ####[facility] ([id number])[address], [address], [place] [address]MNECVRFK NEUTROPHIL7.3 X10E9/LHigh1.5-6.6ProMer[facility] Health [facility] HospitalComment on above:Performed By: #### CBCA, CMP, , 2776-04 ####[facility] ([id number])[address], [address], [place] [address]Lghhyihlf/100 WBC (Bld)0.6 %NormalMercy Health St. Anne Hospital HospitalComment on above:Performed By: #### CBCA, CMP, , 2776-04 ####[facility] ([id number])[address], [address], [place] [address]Gnnxzhhygap (Bld) [#/Vol]0.0 10*3/uLNormal0.0-0.4ProMer[facility] Health [facility] HospitalComment on above: Performed By: #### CBCA, CMP, , 2776-04 ####[facility] ([id number])[address], [address], [place] [address]Eafwchawtzn/100 WBC (Bld) 0.5 %NormalProMedica Lynn HospitalComment on above:Performed By: #### CBCA, CMP, , 2776-04 ####[facility] ([id number])[address], [address], [place] [address]Gckbxsmitfd distribution width (RBC) [Ratio]18.3 %High11.5-15.0ProMedica Lynn HospitalComment on above:Performed By: #### CBCA, CMP, , 2776-04 ####[facility] ([id number])[address], [address], [place] [address]Lpijccvhuq (Bld) [Volume fraction]23.7 %Low 35-47ProMedica Lynn HospitalComment on above:Performed By: #### CBCA, CMP, , 2776-04 ####[facility] ([id number])[address], [address], [place] [address]Rxljioimph (Bld) [Mass/Vol]7.8 g/dLLow11.7-15.5 [facility] Lynn HospitalComment on above:Performed By: #### CBCA, CMP, , 2776-04 ####[facility] ([id number])[address] [address], [place] [address]Mypixcqxzbr (Bld) [#/Vol]0.6 10*3/uLLow1.0-3.5ProMedica Lynn HospitalComment on above:Performed By: #### CBCA, CMP, , 2776-04 ####[facility] ([id number])[address] [address], [place] [address]Mnldrwmltgb/100 WBC (Bld)7.7 %NormalProMedica Lynn HospitalComment on above:Performed By: #### CBCA, CMP, , 2776-04 ####[facility] ([id number])[address], [address], [place] [address]CWG (RBC) [Entitic mass]31.8 ytBnzkmd23-47ThdIiokmi Lynn HospitalComment on above:Performed By: #### CBCA, CMP, , 2776-04 ####[facility] ([id number])[address], [address], [place] [address]RVQO (RBC) [Mass/Vol]32.8 g/kAFreqnc95-28OjuDkwfkt Lynn HospitalComment on above:Performed By: #### CBCA, CMP, , 2776-04 ####[facility] ([id number])[address], [address], [place] [address]EBO (RBC) [Entitic vol]97 oKDrodqc19-631 [facility] HospitalComment on above:Performed By: #### CBCA, CMP, , 2776-04 ####[facility] ([id number])[address], [address] [place] [address]Wpdjeectn (Bld) [#/Vol]0.1 10*3/uLNormal0-0.9[facility] HospitalComment on above:Performed By: #### CBCA, CMP, , 2776-04 ####[facility] ([id number])[address], [address], [place] [address]Qqoyaxhoe/100 WBC (Bld)1.2 %NormalProMedica Lynn HospitalComment on above:Performed By: #### CBCA, CMP, , 2776-04 ####[facility] ([id number])[address], [address], [place] [address]Hhbyvzieewn/100 WBC (Bld)90.0 %NormalProMedica Lynn HospitalComment on above:Performed By: #### CBCA, CMP, , 2776-04 ####[facility] ([id number])[address], [address], [place] [address]Qklakjqs mean volume (Bld) [Entitic vol]7.2 fLNormal7-12Pro[facility] Phoenix HospitalComment on above:Performed By: #### NAMITA CMP, , 2776-04 ####[facility] ([id number])[address], [address], [place] [address]Vzjdhhbgt (Bld) [#/Vol]330 10*3/iCMddvxw181-307 [facility] Phoenix HospitalComment on above:Performed By: #### RENA BREAUX, , 2776-04 ####[facility] ([id number])[address] [address] [place] [address]KIG COUNT2.45 X10E12/LLow3.80-5.20ProMer[facility] Hospital Comment on above:Performed By: #### NAMITA CMP, , 2776-04 ####[facility] ([id number])[address] [address], [place] [address]LRJ (Bld) [#/Vol]8.1 10*3/uLNormal4.0-11.0ProMer[facility] HospitalComment on above: Performed By: #### NAMITA CMP, , 2776-04 ####[facility] ([id number])[address], [address], [place] [address]NWHVYVCYULRNP METABOLIC PANELon 01-11-1406Hjdioof [Mass/Vol]4.2 g/dLNormal3.2-5.3ProMedOhioHealth [facility] HospitalComment on above:Performed By: #### NAMITA, CMP, , 2776-04 ####[facility] ([id number])[address] [address], [place] [address]SBI [Catalytic activity/Vol]60 U/UBdzskr33-988JeoLzmiak [facility] Comment on above:Performed By: #### RENA BREAUX, , 2776-04 ####[facility] ([id number])[address], [address], [place] [address]BQP [Catalytic activity/Vol]6 U/LNormal0-31[facility] HospitalComment on above:Performed By: #### NAMITA CMP, , 2776-04 ####[facility] ([id number])[address], [address], [place] [address]Drerr gap [Moles/Vol]12 mmol/LNormal5-15Pro[facility] HospitalComment on above:Performed By: #### RENA BREAUX, , 2776-04 ####[facility] ([id number])[address], [address], [place] [address]QHO [Catalytic activity/Vol]9 U/LNormal0-41 [facility] HospitalComment on above:Performed By: #### RENA BREAUX, , 2776-04 ####[facility] ([id number])[address], [address], [place] [address]Qswjqwuso [Mass/Vol]1.2 mg/dLNormal0.3-1.2ProMedOhioHealth Riverside Methodist Hospital HospitalComment on above:Performed By: #### NAMITA, CMP, , 2776-04 ####[facility] ([id number])[address], [address], [place] [address]Oepaago [Mass/Vol]9.8 mg/dLNormal8.5-10.5ProMedOhioHealth Riverside Methodist Hospital HospitalComment on above:Performed By: #### NAMITA CMP, , 2776-04 ####[facility] ([id number])[address], [address], [place] [address]Kucklioy [Moles/Vol]100 mmol/SMttyar47-486EmmRnkvom Phoenix HospitalComment on above: Performed By: #### RENA BREAUX, , 2776-04 ####[facility] ([id number])[address], [address], [place] [address]NT4 [Moles/Vol]24 mmol/L Zbcbqd34-28DjpMyzjby Phoenix HospitalComment on above:Performed By: #### RENA BREAUX, , 2776-04 ####[facility] ([id number])[address], [address], [place] [address]Cltnkgfsxj [Mass/Vol]2.02 mg/dLHigh0.40-1.00 [facility] HospitalComment on above:Result Comment: METHOD TRACEABLE TO IDMS STANDARDPerformed By: #### RENA BREAUX, , 2776-04 ####[facility] ([id number])[address] [address], [place] [address]QNR/1.73 sq M.predicted among non-blacks MDRD (S/P/Bld) [Vol rate/Area]28 mL/min/{1.73_m2} Low>59Pro[facility] HospitalComment on above:Result Comment: Reported eGFR is based on theCKD-EPI 2020 equation that doesnot use a race coefficient.Performed By: #### RENA BREAUX, , 2776-04 ####[facility] ([id number])[address], [address], [place] [address]Wqglngu [Mass/Vol]131 mg/dL Pvov31-55UmhPolxye Phoenix HospitalComment on above:Performed By: #### RENA BREAUX, , 2776-04 ####[facility] ([id number])[address] [address], [place] [address]Nhuzhprok [Moles/Vol]4.5 mmol/LNormal3.5-5.0ProCincinnati Children'[facility] Hospital Medical Centerca Phoenix HospitalComment on above:Performed By: #### RENA BREAUX, , 2776-04 ####[facility] ([id number])[address], [address] [place] [address]Hihjrwi [Mass/Vol]7.4 g/dLNormal6.0-8.0ProCincinnati Children'S Hospital Medical Centerca Phoenix HospitalComment on above:Performed By: #### RENA BREAUX, , 2776-04 ####[facility] ([id number])[address], [address] [place] [address]Ueahbe [Moles/Vol]136 mmol/WKytckv788-563ViqWaltsq [place] HospitalComment on above: Performed By: #### RENA BREAUX, , 2776-04 ####[facility] ([id number])[address], [address] [place] [address]Tdrn nitrogen [Mass/Vol]32 mg/dLHigh5-27Pro[facility] HospitalComment on above:Performed By: #### RENA BREAUX, , 2776-04 ####[facility] ([id number])[address], [address] [place] [address]HZ [place] DIAL/CENT LINE > 5 YRSon 73-43-4901RF [place] DIAL/CENT LINE > 5 YRSNormalProMercy Health [facility] MAGNESIUMon 97-53-7102Mijziofhd [Mass/Vol]2.1 mg/dLNormal1.8-2.6ProCincinnati Children'[facility] Hospital Medical Centerca Phoenix HospitalComment on above:Performed By: #### RENA BREAUX, , 2776-04 ####[facility] ([id number])[address], [address] [place] [address]UQMCRAOBJLma 66-13-9534Lnnjzfjql [Mass/Vol]3.6 mg/dLNormal2.4-4.9[facility] Lynn HospitalComment on above:Performed By: #### CBCA, CMP, [address]-3, 2777-1 ####[facility] ([id number])[address] [facility], [address], [place] [address]BJ CHEST 1 VWon 30-38-3347NN CHEST 1 VWSaint Mary'S Health CenteralProCincinnati Children'S Hospital Medical Centerca Phoenix HospitalAFB CULTURE(CONCENTRATED)on 16-62-8797Ukkjzejqbawip sp identified Org specific cx Nom (Unsp spec)AFB SMEAR NO ACID FAST BACILLI (CONCENTRATED SMEAR) CULTURE RESULTS NO ACID FAST BACILLI ISOLATED IN 8 WEEKSNormalProCincinnati Children'S Hospital Medical Centerca Phoenix HospitalComment on above:Performed By: #### 543-9 ####[facility] ([id number])[address], [address], [place] [address]HSEHLVTN BLOOD GASon 20-41-0619GCKNF'S TESTNormalProCincinnati Children'S Hospital Medical Centerca Phoenix HospitalComment on above:Performed By: #### ABG ####[facility] ([id number])[address] [place], [place] [address]FYXF,DEFICIT4.0 MMOL/LHigh0.0-2.0ProCincinnati Children'S Hospital Medical Centerca Phoenix HospitalComment on above:Performed By: #### ABG ####[facility] ([id number])[address] [place], [place] [address]Cdpe .6 [degF]Hqtpoy86.0Pro[facility] Phoenix HospitalComment on above:Performed By: #### ABG ####[facility] ([id number])[address] [place], [place] [address]UHZ3 (Bld) [Moles/Vol]23.2 mmol/L Gyrimq05-27YhoTtxzgr Phoenix HospitalComment on above:Performed By: #### ABG ####[facility] ([id number])[address] [place] [address] INSP. O2 CONC.28 %NormalProMedica Lynn HospitalComment on above:Performed By: #### ABG ####[facility] ([id number])[address] [place], [place] [address]Blwuod (Bld) [Partial pressure]66 mm[Hg]Hpb64-301ZchQhokcrMercy Health Clermont Hospital Comment on above:Performed By: #### ABG ####[facility] ([id number])[address] [place], [place] [address]Xlqotv saturation in Blood89.0 %Low >90ProMercy Health Clermont HospitalComment on above:Performed By: #### ABG ####[facility] ([id number])[address] [place], [place] [address]GRDMDF SOURCE NPPVNoalAultman Orrville HospitalComment on above:Performed By: #### ABG ####[facility] ([id number])[address] [place], [place] [address]GYZ1 52.7 NFGBOiag47-78LngSiozum [place] HospitalComment on above:Performed By: #### ABG ####[facility] ([id number])[address] [place] [address] pH (Bld)7.252 [pH]Low7.350-7.450ProMercy Health Clermont HospitalComment on above: Performed By: #### ABG ####[facility] ([id number])[address] [place], [place] [address]ANAJTI SITERRadNormalProMercy Health Clermont HospitalComment on above:Performed By: #### ABG ####[facility] ([id number])[address] [facility], [place] [address]VDYFCP TYPEARTERIALNormalMercy Health St. [facility] Hospital Hospital Comment on above:Performed By: #### ABG ####[facility] ([id number])[address] [facility], [place] [address] CELL [address] AND DIFFon 07-02-2024 BODY FLUID COMMENT Interpretation--------NormalProCincinnati Children'S Hospital Medical Centerca [place]omerene HospitalComment on above:Result Comment: Reference values for this fluid type areundefined, as fluid accumulation isconsidered abnormal.Assorted lining cells present.Corrected on 07/03 AT 0544: Previously reported as Interpretation Reference values for this fluid type are undefined, as fluid accumulation is considered abnormal.Performed By: #### BFCT ####[facility] ([id number])[address], [address], [place] [address]GJTID CLARITYHAZYNormal ProMedica [facility]ome[facility] HospitalComment on above:Performed By: #### BFCT ####[facility] ([id number])[address], [address], [place] [address]YHWGD COLORYELLOWNormalProMercy Health Clermont HospitalComment on above:Performed By: #### BFCT ####[facility] ([id number])[address], [address] [address]MZMZG LYMPHOCYTE3 %NormalProMercy Health Clermont HospitalComment on above:Performed By: #### BFCT ####[facility] ([id number])[address], [address], [place] [address]QGTRE OBMNYHJTJHT48 %NormalProMercy Health Clermont HospitalComment on above:Performed By: #### BFCT ####[facility] ([id number])[address], [address], [place] [address]XKMJL RBC CT220 /uL NormalProCincinnati Children'S Hospital Medical Centerca Phoenix HospitalComment on above:Performed By: #### BFCT ####[facility] ([id number])[address], [address], [place] [address]EZPFC SPECIMEN TYPEBRONCHOALVEOLAR LAVAGENormalAultman Orrville Hospital Comment on above:Result Comment: LEFTLUNG, LOWER LOBEPerformed By: #### BFCT ####[facility] ([id number])[address], [place] [address]AKIVNPTJTVD26 %NormalProMercy Health Clermont HospitalComment on above:Performed By: #### BFCT ####[facility] ([id number])[address], [place] [address]SFNYMHQVQ CELL CT76 /uLNormalProMercy Health [facility] Comment on above:Performed By: #### BFCT ####[facility] ([id number])[address], [address], [place] [address]FJY AND AUTO DIFFon 61-27-3182UXEJVBQE BASOPHIL0.0 X10E9/LNormal0.0-0.2PGuernsey Memorial [facility] Comment on above:Performed By: #### CBCA, CMP, , 2776-04 ####[facility] ([id number])[address], [address], [place] [address] ABSOLUTE NEUTROPHIL4.2 X10E9/LNormal1.5-6.6ProMercy Health Clermont HospitalComment on above:Performed By: #### CBCA, CMP, , 2776-04 ####[facility] ([id number])[address], [address], [place] [address]Yyrhgsdvc/100 WBC (Bld)0.6 %NormalProMercy Health [facility] HospitalComment on above:Performed By: #### CBCA, CMP, , 2776-04 ####[facility] ([id number])[address], [address], [place] [address]Xznodsauxfy (Bld) [#/Vol]0.9 10*3/uLHigh 0.0-0.4ProMercy Health Clermont HospitalComment on above:Performed By: #### CBCA, CMP, , 2776-04 ####[facility] ([id number])[address], [address], [place] [address]Yixzhlqirvq/100 WBC (Bld)12.5 %NormalProMercy Health [facility] HospitalComment on above:Performed By: #### CBCChristiano CMP, , 2776-04 ####[facility] ([id number])[address], [address], [place] [address]Hwnzqywhtrh distribution width (RBC) [Ratio]17.8 %High11.5-15.0ProMer[facility] HospitalComment on above:Performed By: #### CBCChristiano CMP, , 2776-04 ####[facility] ([id number])[address], [address], [place] [address]Wbixodtfnw (Bld) [Volume fraction]23.1 %Nza92-30IusSjasju [place] [facility] Comment on above:Performed By: #### CBCChristiano CMP, , 2776-04 ####[facility] ([id number])[address], [place] [address] Hemoglobin (Bld) [Mass/Vol]7.6 g/dLLow11.7-15.5PSalem City Hospital HospitalComment on above:Performed By: #### CBCChristiano CMP, , 2776-04 ####[facility] ([id number])[address] [address] [place] [address]Phbnosfsgnx (Bld) [#/Vol]1.2 10*3/uLNormal1.0-3.5PSalem City Hospital HospitalComment on above: Performed By: #### CBCA, CMP, , 2776-04 ####[facility] ([id number])[address] [address], [place] [address]Dyqtwlvaslc/100 WBC (Bld) 16.4 %NormalProMercy Health [facility] HospitalComment on above:Performed By: #### CBCA, CMP, , 2776-04 ####[facility] ([id number])[address], [address], [place] [address]LRH (RBC) [Entitic mass]31.4 yqCrzxiq62-85 [facility] HospitalComment on above:Performed By: #### CBCA, CMP, , 2776-04 ####[facility] ([id number])[address], [address], [place] [address]ZWSN (RBC) [Mass/Vol]32.8 g/pYYvaomx53-94IdjMadcmh Lynn HospitalComment on above:Performed By: #### CBCChristiano, CMP, , 2776-04 ####[facility] ([id number])[address], [address] [place] [address]LWC (RBC) [Entitic vol]96 hFWmfqeh79-460ZlaEimqxl Lynn HospitalComment on above:Performed By: #### CBCA, CMP, , 2776-04 ####[facility] ([id number])[address], [address] [place] [address]Jndqklrmn (Bld) [#/Vol]0.7 10*3/uLNormal0-0.9[facility] HospitalComment on above:Performed By: #### CBCA, CMP, , 2776-04 ####[facility] ([id number])[address], [address], [place] [address]Acwnqndlo/100 WBC (Bld)10.4 %NormalProMedica Lynn HospitalComment on above:Performed By: #### CBCA, CMP, , 2776-04 ####[facility] ([id number])[address], [address], [place] [address]Qumenmkanfm/100 WBC (Bld)60.1 %NormalProMedica Lynn HospitalComment on above:Performed By: #### CBCChristiano, CMP, , 2776-04 ####[facility] ([id number])[address], [address], [place] [address]Anicbykk mean volume (Bld) [Entitic vol]7.0 fLNormal7-12[facility] HospitalComment on above:Performed By: #### CBCA, CMP, , 2776-04 ####[facility] ([id number])[address], [address], [place] [address]Cugeuosyu (Bld) [#/Vol]376 10*3/lSHwmghb731-735FqjBgwbcz [facility] Comment on above:Performed By: #### NAMITA, CMP, , 2776-04 ####[facility] ([id number])[address], [address] [place] [address]JRR COUNT2.42 X10E12/LLow3.80-5.20ProC[facility] Medical Centerca [facility] HospitalComment on above: Performed By: #### NAMITA, CMP, , 2776-04 ####[facility] ([id number])[address], [address] [place] [address]LLA (Bld) [#/Vol]7.1 10*3/uLNormal4.0-11.0ProC[facility] Medical Centerca [place] HospitalComment on above:Performed By: #### CBCA, CMP, , 2776-04 ####[facility] ([id number])[address], [address], [place] [address]ICOVMFTAPEXBA METABOLIC PANELon 78-87-5793Dipdyxv [Mass/Vol]3.7 g/dLNormal3.2-5.3[facility] Phoenix HospitalComment on above:Performed By: #### CBCA, CMP, , 2776-04 ####[facility] ([id number])[address], [address], [place] [address]RFI [Catalytic activity/Vol]56 U/LRoxmjh32-120YbqLrgwtl [facility] Comment on above:Performed By: #### RENA BREAUX, , 2776-04 ####[facility] ([id number])[address], [address], [place] [address]WDK [Catalytic activity/Vol]5 U/LNormal0-31[facility] HospitalComment on above:Performed By: #### RENA BREAUX, , 2776-04 ####[facility] ([id number])[address], [address], [place] [address]Kxous gap [Moles/Vol]14 mmol/LNormal5-15[facility] HospitalComment on above:Performed By: #### NAMITA CMP, , 2776-04 ####[facility] ([id number])[address], [address], [place] [address]RVC [Catalytic activity/Vol]8 U/LNormal0-41 [facility] HospitalComment on above:Performed By: #### NAMITA, CMP, , 2776-04 ####[facility] ([id number])[address], [address], [place] [address]Ptxychcbb [Mass/Vol]1.0 mg/dLNormal0.3-1.2[facility] HospitalComment on above:Performed By: #### NAMITA, CMP, , 2776-04 ####[facility] ([id number])[address], [address], [place] [address]Tesitfi [Mass/Vol]10.5 mg/dLNormal8.5-10.5[facility] HospitalComment on above:Performed By: #### NAMITA, CMP, , 2776-04 ####[facility] ([id number])[address], [address] [place] [address]Dxrrgvzj [Moles/Vol]105 mmol/JUnmqep00-186RaeScotgz [place] HospitalComment on above: Performed By: #### RENA BREAUX, , 2776-04 ####[facility] ([id number])[address], [address] [place] [address]EG7 [Moles/Vol]25 mmol/L Vexkbm23-56CvgPbxhcz Phoenix HospitalComment on above:Performed By: #### RENA BREAUX, , 2776-04 ####[facility] ([id number])[address], [address], [place] [address]Ekrobarvya [Mass/Vol]4.12 mg/dLHigh0.40-1.00 [facility] HospitalComment on above:Result Comment: METHOD TRACEABLE TO IDMS STANDARDPerformed By: #### RENA BREAUX, , 2776-04 ####[facility] ([id number])[address] [address], [place] [address]EKT/1.73 sq M.predicted among non-blacks MDRD (S/P/Bld) [Vol rate/Area]12 mL/min/{1.73_m2} Low>59[facility] HospitalComment on above:Result Comment: Reported eGFR is based on theCKD-EPI 2020 equation that doesnot use a race coefficient.Performed By: #### RENA BREAUX, , 2776-04 ####[facility] ([id number])[address], [address], [place] [address]Wzmwlzq [Mass/Vol]92 mg/dL Zatzuc65-78FutWhtgxy Phoenix HospitalComment on above:Performed By: #### RENA BREAUX, , 2776-04 ####[facility] ([id number])[address], [address], [place] [address]Yaxhjuufv [Moles/Vol]3.8 mmol/LNormal3.5-5.0 [facility] HospitalComment on above:Performed By: #### NAMITA, CMP, 51857-3, 2777-1 ####[facility] ([id number])[address], [address], [place] [address]Oldtslq [Mass/Vol]6.7 g/dLNormal6.0-8.0[facility] HospitalComment on above:Performed By: #### CBCChristiano, CMP, 21295-1, 2777-1 ####[facility] ([id number])[address], [address] [place] [address]Sgrebc [Moles/Vol]144 mmol/IMfgtvk787-585FowDlouwz [place] HospitalComment on above:Performed By: #### NAMITA, CMP, , 2777-1 ####[facility] ([id number])[address], [address] [place] [address], [place] [address]Wktj nitrogen [Mass/Vol]80 mg/dLHigh5-27[facility] HospitalComment on above:Performed By: #### CBCA, CMP, , 2777-1 ####[facility] ([id number])[address], [address] [place] [address]Mimuqoexkn 07-02-2024 CytologyNormalProMercy Health [facility] HospitalComment on above:Result Comment: [facility] [address] [place] [address] Cytology ConsultationPatient Name:ORESTES ALVARES:1965 (Age: 59)Gender:FTaken:07/02/2024Reported:07/03/2024 16:31Physician(s):Quintin Forman M.D. ([phone])Copy To: Rec. #:[id number]: #[id number] DiagnosisLung, left lower lobe, bronchoalveolar lavage:No malignant cells identified.ao07/03/2024Interpretation performed at [facility], [address] [place], [place] [address], License number: [id number].Electronically Signed Out By Earl Boone MDClinical HistoryMucus plug in respiratory tract [T17.998A]. Acute hypoxic respiratory failure ([facility]) [J96.01].Gross DescriptionReceived was 5ml of clear colorless fluid unfixed labeled as [place], lung, left lower lobe, BAL . CytoLyt added in lab. Unable to obtain cellblock, ThinPrep made.Source of Specimen Lung, left lower lobe, bronchoalveolar lavage Non FINANCIAL COMPLIANCE MANAGER ThinPrepFee Code(s):1; 17272FRRWBB CULTUREon 99-68-7612Ysccnz identified Cx Nom (Unsp spec)FUNGAL SMEAR NO FUNGAL ELEMENTS SEEN ON DIRECT SMEAR CULTURE RESULTS MABLE ALBICANSAbnormalProMercy Health Clermont HospitalComment on above:Performed By: #### 580-1 ####[facility] ([id number])[address] [place] [address]AAHZK RESPIRATORY CULTUREon 66-41-2771Hekzqvqd identified Respiratory culture Nom (Sput)SusceptibleProMercy Health [facility] Hospital HospitalComment on above:Performed By: #### 624-7 ####[facility] ([id number])[address] [place] [address]AYNBRMTVAaj 70-74-0328Ytlieqztb [Mass/Vol] 1.9 mg/dLNormal1.8-2.6Pro[facility] HospitalComment on above:Performed By: #### CBCA, CMP, 17859-4, 2777-1 ####[facility] ([id number])[address] [place] [address]Vnxkaodhp Ionized ISE (Bld) [Moles/Vol]on 62-92-8550Dxhnzyllf [Moles/Vol]0.71 mmol/LNormal0.45-0.74 [facility] HospitalComment on above:Result Comment: NEW REFERENCE RANGE Performed By: #### 72429-1 ####[facility] ([id number])[address], [address] [place] [address]SGVBFUMDWObe 23-27-5445Qeddgstmw [Mass/Vol] 5.2 mg/dLHigh2.4-4.9[facility] HospitalComment on above:Performed By: #### CBCA, CMP, 24322-2, 2777-1 ####[facility] ([id number])[address], [address] [place] [address]YSHIJFCLUik 80-53-2202Cagafwmtm [Moles/Vol] 4.2 mmol/LNormal3.5-5.0[facility] HospitalComment on above:Performed By: #### 2823-3 ####[facility] ([id number])[address], [address] [place] [address]WJNTTEG AND INRon 69-44-3942LUE Coag (PPP) [Relative time]1.2 {INR}Normal0.9-1.2PGuernsey Memorial HospitalComment on above:Performed By: #### PINR ####[facility] ([id number])[address], [address] [place] [address]VX Coag (PPP) [Time]13.5 sHigh9.8-13.2PSal[facility] HospitalComment on above:Performed By: #### PINR ####[facility] ([id number])[address], [address] [place] [address]77[address]DX CHEST 1 VWon 47-94-0038HR CHEST 1 VWNormalProMercy Health Clermont HospitalXR CHEST 1 VWNormal ProMChillicothe VA Medical CenterCBC AND AUTO DIFFon 39-21-4151ZSWBQGKI BASOPHIL0.1 X10E9/LNormal0.0-0.2[facility] HospitalComment on above:Performed By: #### CBCChristiano, CMP, , 2776-04 ####[facility] ([id number])[address], [address], [place] [address]RLOQRBLW NEUTROPHIL3.9 X10E9/LNormal1.5-6.6 [facility] HospitalComment on above:Performed By: #### CBCChristiano, CMP, , 2776-04 ####[facility] ([id number])[address], [address] [place] [address]Qjabsgwrk/100 WBC (Bld)2.0 %NormalProMercy Health [facility] Hospital Comment on above:Performed By: #### CBCChristiano, CMP, , 2776-04 ####[facility] ([id number])[address], [address] [place] [address] Eosinophils (Bld) [#/Vol]1.0 10*3/uLHigh0.0-0.4Pro[facility] HospitalComment on above:Performed By: #### CBCA, CMP, , 2776-04 ####[facility] ([id number])[address], [address] [place] [address]Vhvmcmqpmzs/100 WBC (Bld)14.0 %NormalProMercy Health [facility] HospitalComment on above:Performed By: #### CBCA, CMP, , 2776-04 ####[facility] ([id number])[address] [address] [place] [address]Tunxebvuspo distribution width (RBC) [Ratio]17.8 %High11.5-15.0Pro[facility] HospitalComment on above: Performed By: #### CBCA, CMP, , 2776-04 ####[facility] ([id number])[address], [address] [place] [address]Litolbubfj (Bld) [Volume fraction]23.7 %Fln45-93JrcMboukp Phoenix HospitalComment on above:Performed By: #### CBCA, CMP, , 2776-04 ####[facility] ([id number])[address], [address] [place] [address]Qfrixawnkr (Bld) [Mass/Vol] 7.7 g/dLLow11.7-15.5[facility] HospitalComment on above:Performed By: #### CBCA, CMP, , 2776-04 ####[facility] ([id number])[address], [address], [place] [address]Kjbwnateuot (Bld) [#/Vol]1.4 10*3/uLNormal 1.0-3.5[facility]MedOhio[facility] HospitalComment on above:Performed By: #### CBCA, CMP, , 2776-04 ####[facility] ([id number])[address], [address], [place] [address]Lxegnlbphio/100 WBC (Bld)19.6 %NormalProCincinnati Children'S Hospital Medical Centerca Phoenix HospitalComment on above:Performed By: #### CBCA, CMP, , 2776-04 ####[facility] ([id number])[address], [address] [place] [address]FVV (RBC) [Entitic mass]31.1 fcEsdxtr36-67AvrIjqcke [facility] HospitalComment on above:Performed By: #### CBCA, CMP, , 2776-04 ####[facility] ([id number])[address], [address], [place] [address]SVQG (RBC) [Mass/Vol]32.5 g/qTXxikxb24-11WidFhxdrl [facility] HospitalComment on above: Performed By: #### CBCA, CMP, , 2776-04 ####[facility] ([id number])[address], [address] [place] [address]SXI (RBC) [Entitic vol]96 nOGnmfhy12-176QbxHdemxm Phoenix HospitalComment on above:Performed By: #### CBCA, CMP, , 2776-04 ####[facility] ([id number])[address], [address], [place] [address]Cmtqsvkvf (Bld) [#/Vol]0.6 10*3/uLNormal0-0.9 [facility] HospitalComment on above:Performed By: #### CBCA, CMP, , 2776-04 ####[facility] ([id number])[address], [address], [place] [address]Ugwgzaste/100 WBC (Bld)8.8 %NormalProCincinnati Children'S Hospital Medical Centerca [facility] Comment on above:Performed By: #### CBCA, CMP, , 2776-04 ####[facility] ([id number])[address], [address] [place] [address] Neutrophils/100 WBC (Bld)55.6 %NormalProMedica Phoenix HospitalComment on above: Performed By: #### CBCA, CMP, , 2776-04 ####[facility] ([id number])[address], [address], [place] [address]Srfowuku mean volume (Bld) [Entitic vol]6.9 fLLow7-12[facility] HospitalComment on above:Performed By: #### CBCA, CMP, , 2776-04 ####[facility] ([id number])[address], [address] [place] [address]Thpiskbkg (Bld) [#/Vol]417 10*3/wLQwyufw280-648QdxNgkqjm [facility] HospitalComment on above:Performed By: #### CBCChristiano, CMP, , 2776-04 ####[facility] ([id number])[address], [address] [place] [address]TRV COUNT2.47 X10E12/LLow3.80-5.20[facility] HospitalComment on above:Performed By: #### CBCA, CMP, , 2776-04 ####[facility] ([id number])[address], [address] [place] [address]PIS (Bld) [#/Vol]7.1 10*3/uLNormal4.0-11.0ProCincinnati Children'S Hospital Medical Centerca [facility] HospitalComment on above:Performed By: #### NAIMTA, CMP, , 2776-04 ####[facility] ([id number])[address], [address] [place] [address]PSDPBSESIUHLB METABOLIC PANELon 17-96-3825Afvoksm [Mass/Vol]3.7 g/dLNormal3.2-5.3[facility] HospitalComment on above:Performed By: #### NAMITA, CMP, , 2776-04 ####[facility] ([id number])[address], [address] [place] [address]ZEL [Catalytic activity/Vol]61 U/APbmrxj91-366WbrEejsmo [facility] Comment on above:Performed By: #### CBCA, CMP, , 2776-04 ####[facility] ([id number])[address] [address] [place] [address]ULT [Catalytic activity/Vol]4 U/LNormal0-31[facility]MedOhio[facility] HospitalComment on above:Performed By: #### CBCA, CMP, , 2776-04 ####[facility] ([id number])[address], [address], [place] [address]Duqgp gap [Moles/Vol]16 mmol/LHigh5-15[facility] HospitalComment on above:Performed By: #### RENA BREAUX, , 2776-04 ####[facility] ([id number])[address], [address], [place] [address]QDV [Catalytic activity/Vol]10 U/LNormal0-41 [facility] HospitalComment on above:Performed By: #### RENA BREAUX, , 2776-04 ####[facility] ([id number])[address], [address], [place] [address]Rzojyjcwl [Mass/Vol]1.1 mg/dLNormal0.3-1.2[facility] HospitalComment on above:Performed By: #### RENA BREAUX, , 2776-04 ####[facility] ([id number])[address], [address], [place] [address]Ylwfaan [Mass/Vol]10.6 mg/dLHigh8.5-10.5ProMedwalker [facility] Lynn HospitalComment on above:Performed By: #### RENA BREAUX, , 2776-04 ####[facility] ([id number])[address], [address], [place] [address]Injtxbwb [Moles/Vol]106 mmol/VCwajnq07-294MlcWpaeph [facility] HospitalComment on above: Performed By: #### RENA BREAUX, , 2776-04 ####[facility] ([id number])[address], [address], [place] [address]HI7 [Moles/Vol]22 mmol/L Oibuti82-79NxzDfryae [facility] HospitalComment on above:Performed By: #### NAMITA CMP, 2776-04 ####[facility] ([id number])[address], [place] [address]Vsaxsodokf [Mass/Vol]3.99 mg/dLHigh0.40-1.00 ProMTriHealth [facility] HospitalComment on above:Result Comment: METHOD TRACEABLE TO IDMS STANDARDPerformed By: #### RENA BREAUX, , 2776-04 ####[facility] ([id number])[address] [address], [place] [address]TBV/1.73 sq M.predicted among non-blacks MDRD (S/P/Bld) [Vol rate/Area]12 mL/min/{1.73_m2} Low>59[facility] HospitalComment on above:Result Comment: Reported eGFR is based on theCKD-EPI 2020 equation that doesnot use a race coefficient.Performed By: #### RENA BREAUX, , 2776-04 ####[facility] ([id number])[address] [address] [place] [address]Yuhkyng [Mass/Vol]76 mg/dL Ltsdvt22-76VdhMjzqgc [place] HospitalComment on above:Performed By: #### RENA BREAUX, 2776-04 ####[facility] ([id number])[address], [address] [place] [address]Swhkewdad [Moles/Vol]4.0 mmol/LNormal3.5-5.0 ProMTriHealth [facility] HospitalComment on above:Performed By: #### RENA BREAUX, 2776-04 ####[facility] ([id number])[address] [address]Dcwulrd [Mass/Vol]6.9 g/dLNormal6.0-8.0ProCinc[facility] Hospital Medical Centerca [facility] HospitalComment on above:Performed By: #### RENA BREAUX, 2776-04 ####[facility] ([id number])[address] [address] [place] [address]Brghuc [Moles/Vol]144 mmol/VAwceaz370-684HiuLwkein [place] HospitalComment on above:Performed By: #### RENA BREAUX, , 2776-04 ####[facility] ([id number])[address], [address] [place] [address]Gzoi nitrogen [Mass/Vol]83 mg/dLHigh5-27Pro[facility] HospitalComment on above:Performed By: #### RENA BREAUX, , 2776-04 ####[facility] ([id number])[address] [address]Fbtofhb.ionized (Bld) [Mass/Vol]on 06-56-5202VUXLNPZ CALCIUM5.6 mg/dLHigh4.5-5.3[facility] HospitalComment on above:Performed By: #### 87169-0, 84751-2 ####[facility] ([id number])[address] [address]IS SWALLOW MOTILITY FUNCTIONon 92-27-1392PF SWALLOW MOTILITY FUNCTIONNormalProMercy Health Clermont HospitalMAGNESIUMon 85-53-1009Revizdmjq [Mass/Vol]2.1 mg/dLNormal1.8-2.6 [facility] HospitalComment on above:Performed By: #### RENA BREAUX, , 2776-04 ####[facility] ([id number])[address] [address]Hvlfukgyt Ionized ISE (Bld) [Moles/Vol]on 73-42-3014Rlegwjrxl [Moles/Vol]0.48 mmol/LNormal0.45-0.74Pro[facility] HospitalComment on above: Result Comment: NEW REFERENCE RANGEPerformed By: #### 19640-0, 51912-7 ####[facility] ([id number])[address], [place] [address]RIGDMEOIECgy 25-92-5520Ypucixpbd [Mass/Vol]5.3 mg/dLHigh2.4-4.9Pro[facility] HospitalComment on above:Performed By: #### CBCA, CMP, , 2776-04 ####[facility] ([id number])[address], [address] [place] [address]1175WV CHEST 1 VWon 18-76-3493RE CHEST 1 VWNormalProMercy Health Clermont HospitalCBC AND AUTO DIFFon 24-98-8835VQESVMOC BASOPHIL0.1 X10E9/LNormal0.0-0.2ProMedRegional Medical CenterComment on above:Performed By: #### CBCA, CMP, , 2776-04 ####[facility] ([id number])[address], [address] [place] [address]KRORWPGR NEUTROPHIL3.9 X10E9/LNormal1.5-6.6[facility] Comment on above:Performed By: #### CBCA, CMP, , 2776-04 ####[facility] ([id number])[address], [address] [place] [address]60[address] Basophils/100 WBC (Bld)0.8 %NormalProMercy Health [facility] HospitalComment on above: Performed By: #### CBCA, CMP, , 2776-04 ####[facility] ([id number])[address], [address] [place] [address]Croysfvkjle (Bld) [#/Vol] 0.9 10*3/uLHigh0.0-0.4ProMercy Health Clermont HospitalComment on above:Performed By: #### CBCA, CMP, , 2776-04 ####[facility] ([id number])[address], [address], [place] [address]Fhzrjhvqdnf/100 WBC (Bld) 13.3 %NormalProMedica Lynn HospitalComment on above:Performed By: #### CBCA, CMP, , 1 ####[facility] ([id number])[address], [place] [address]Rjpgobvkgav distribution width (RBC) [Ratio]18.3 %High11.5-15.0[facility] HospitalComment on above:Performed By: #### CBCA, CMP, , 2776-04 ####[facility] ([id number])[address], [address], [place] [address]Faxtyrdykv (Bld) [Volume fraction]22.7 %Low 35-47Pro[facility] HospitalComment on above:Performed By: #### CBCA, CMP, , 2776-04 ####[facility] ([id number])[address], [address], [place] [address]Oweuuzkwgr (Bld) [Mass/Vol]7.5 g/dLLow11.7-15.5 [facility] HospitalComment on above:Performed By: #### CBCA, CMP, , 2776-04 ####[facility] ([id number])[address], [address], [place] [address]Htuvsknaaec (Bld) [#/Vol]1.2 10*3/uLNormal1.0-3.5[facility] HospitalComment on above:Performed By: #### CBCA, CMP, , 2776-04 ####[facility] ([id number])[address] [address]Dcjipjmrexj/100 WBC (Bld)18.2 %NormalProMedica Lynn HospitalComment on above:Performed By: #### CBCA, CMP, , 2776-04 ####[facility] ([id number])[address], [address] [place] [address]PWD (RBC) [Entitic mass]31.5 wyLsbqmo83-57PvqLgjvwj Lynn HospitalComment on above:Performed By: #### CBCA, CMP, , 2776-04 ####[facility] ([id number])[address], [address] [place] [address] 90786SFSH (RBC) [Mass/Vol]32.9 g/uFQskzdv33-62CmuNsnbza Lynn HospitalComment on above:Performed By: #### CBCA, CMP, , 2776-04 ####[facility] ([id number])[address], [address] [place] [address] 17812CKM (RBC) [Entitic vol]96 sVLjxrkq71-536 [facility] HospitalComment on above:Performed By: #### CBCA, CMP, , 2776-04 ####[facility] ([id number])[address], [address] [place] [address] 71426Tfcvkrjvg (Bld) [#/Vol]0.8 10*3/uLNormal0-0.9[facility] HospitalComment on above:Performed By: #### CBCA, CMP, , 2776-04 ####[facility] ([id number])[address], [address] [place] [address] 10156Zspcmhiki/100 WBC (Bld)11.2 %NormalProMedica Lynn HospitalComment on above:Performed By: #### CBCA, CMP, , 2776-04 ####[facility] ([id number])[address], [address] [place] [address] 72996Xjmustcpkxq/100 WBC (Bld)56.5 %NormalProMer[facility] HospitalComment on above:Performed By: #### CBCChristiano, CMP, , 2776-04 ####[facility] ([id number])[address], [address] [place] [address] 75306Yntyhnmb mean volume (Bld) [Entitic vol]6.8 fLLow7-12[facility] HospitalComment on above:Performed By: #### CBCA, CMP, , 2776-04 ####[facility] ([id number])[address], [address] [place] [address] 98347Nruivbhzv (Bld) [#/Vol]443 10*3/wBNkftxe634-129 [facility] HospitalComment on above:Performed By: #### CBCChristiano, CMP, , 2776-04 ####[facility] ([id number])[address], [address] [place] [address] 12156LRC COUNT2.37 X10E12/LLow3.80-5.20Pro[facility] Comment on above:Performed By: #### CBCChristiano, CMP, , 2776-04 ####[facility] ([id number])[address], [address] [place] [address] 76481IHB (Bld) [#/Vol]6.9 10*3/uLNormal4.0-11.0Pro[facility] HospitalComment on above: Performed By: #### CBCA, CMP, , 2776-04 ####[facility] ([id number])[address], [address] [place] [address] 94452HUSDDCICHNFMU METABOLIC PANELon 88-55-8913Ylztena [Mass/Vol]3.9 g/dLNormal3.2-5.3PSalem [facility] HospitalComment on above:Performed By: #### CBCA, CMP, , 2776-04 ####[facility] ([id number])[address], [address], [place] [address]FWA [Catalytic activity/Vol]60 U/OIgdike42-761PhbYbkxqz [facility] Comment on above:Performed By: #### NAMITA CMP, , 2776-04 ####[facility] ([id number])[address], [address], [place] [address]KPG [Catalytic activity/Vol]5 U/LNormal0-31[facility] HospitalComment on above:Performed By: #### RENA BREAUX, , 2776-04 ####[facility] ([id number])[address], [address], [place] [address]Lqmzq gap [Moles/Vol]13 mmol/LNormal5-15Pro[facility] HospitalComment on above:Performed By: #### RENA BREAUX, , 2776-04 ####[facility] ([id number])[address], [address], [place] [address]IMM [Catalytic activity/Vol]11 U/LNormal0-41 [facility] HospitalComment on above:Performed By: #### RENA BREAUX, , 2776-04 ####[facility] ([id number])[address], [place] [address]Tmqfnmzwi [Mass/Vol]1.0 mg/dLNormal0.3-1.2[facility] HospitalComment on above:Performed By: #### NAMITA CMP, , 2776-04 ####[facility] ([id number])[address], [place] [address]Mjlemqf [Mass/Vol]10.5 mg/dLNormal8.5-10.5[facility] HospitalComment on above:Performed By: #### RENA BREAUX, , 2776-04 ####[facility] ([id number])[address], [address], [place] [address]Adsaszss [Moles/Vol]103 mmol/BRsifii24-126HwmPztxwc Phoenix HospitalComment on above: Performed By: #### RENA BREAUX, , 2776-04 ####[facility] ([id number])[address], [address], [place] [address]QZ8 [Moles/Vol]25 mmol/L Qdkgtm60-32RloRudtof Phoenix HospitalComment on above:Performed By: #### RENA BREAUX, , 2776-04 ####[facility] ([id number])[address], [address] [place] [address]Yatxtaieqa [Mass/Vol]3.76 mg/dLHigh0.40-1.00 [facility] HospitalComment on above:Result Comment: METHOD TRACEABLE TO IDMS STANDARDPerformed By: #### RENA BREAUX, , 2776-04 ####[facility] ([id number])[address], [address] [place] [address]LOI/1.73 sq M.predicted among non-blacks MDRD (S/P/Bld) [Vol rate/Area]13 mL/min/{1.73_m2} Low>59[facility] HospitalComment on above:Result Comment: Reported eGFR is based on theCKD-EPI 2020 equation that doesnot use a race coefficient.Performed By: #### RENA BREAUX, , 2776-04 ####[facility] ([id number])[address], [address], [place] [address]Qzpdnlb [Mass/Vol]90 mg/dL Rhnmry65-04ZbqCxovso Phoenix HospitalComment on above:Performed By: #### RENA BREAUX, , 2776-04 ####[facility] ([id number])[address], [address], [place] [address]Qybldyqig [Moles/Vol]3.8 mmol/LNormal3.5-5.0 [facility] HospitalComment on above:Performed By: #### RENA BREAUX, , 2776-04 ####[facility] ([id number])[address], [address], [place] [address]Zplepca [Mass/Vol]7.1 g/dLNormal6.0-8.0[facility] HospitalComment on above:Performed By: #### RENA BREAUX, , 2776-04 ####[facility] ([id number])[address], [address], [place] [address]Gmatvb [Moles/Vol]141 mmol/PMexgpx960-807JfbRiksxr Lynn HospitalComment on above:Performed By: #### RENA BREAUX, , 2776-04 ####[facility] ([id number])[address], [address], [place] [address]Bsii nitrogen [Mass/Vol]84 mg/dLHigh5-27[facility] HospitalComment on above:Performed By: #### RENA BREAUX, , 2776-04 ####[facility] ([id number])[address], [address], [place] [address]HYZSFCMYSvg 06-30-2024 Magnesium [Mass/Vol]2.2 mg/dLNormal1.8-2.6[facility] HospitalComment on above:Performed By: #### RENA BREAUX, , 2776-04 ####[facility] ([id number])[address], [address], [place] [address]ZRJKYQJFUBgd 53-81-5122Xmgggiens [Mass/Vol]5.2 mg/dLHigh2.4-4.9[facility] Comment on above:Performed By: #### CBCChristiano, CMP, , 2777-1 ####[facility] ([id number])[address], [address] [place] [address] POTASSIUMon 42-21-1656Ioynvlxrp [Moles/Vol]4.6 mmol/LNormal3.5-5.0Pro[facility] HospitalComment on above:Performed By: #### 2823-3 ####[facility] ([id number])[address], [address] [place] [address]OA CHEST 1 VWon 47-40-2190YI CHEST 1 VWNormalProMercy Health Clermont HospitalCBC AND AUTO DIFFon 29-32-4666ECWSMDQU BASOPHIL0.1 X10E9/LNormal0.0-0.2P[facility] Comment on above:Performed By: #### CBCChristiano, CMP, , 2776-04 ####[facility] ([id number])[address], [address] [place] [address] ABSOLUTE NEUTROPHIL4.3 X10E9/LNormal1.5-6.6[facility] HospitalComment on above:Performed By: #### CBCChristiano, CMP, , 277-1 ####[facility] ([id number])[address], [address] [place] [address]Eebrwmerw/100 WBC (Bld)0.7 %NormalProMercy Health Clermont HospitalComment on above:Performed By: #### CBCA, CMP, , 2777-1 ####[facility] ([id number])[address], [address] [place] [address]Cgcbxtqukok (Bld) [#/Vol]0.9 10*3/uLHigh 0.0-0.4ProMercy Health Clermont HospitalComment on above:Performed By: #### CBCA, CMP, , 2776-04 ####[facility] ([id number])[address] [address], [place] [address]Bzvjaafhkqs/100 WBC (Bld)12.6 %NormalProMercy Health Clermont HospitalComment on above:Performed By: #### CBCA, CMP, , 2776-04 ####[facility] ([id number])[address] [address] [place] [address]Wtdswsfyloe distribution width (RBC) [Ratio]17.5 %High11.5-15.0ProMercy Health Clermont HospitalComment on above:Performed By: #### CBCA, CMP, , 2776-04 ####[facility] ([id number])[address] [address]Clxqsyyaqs (Bld) [Volume fraction]21.9 %Txy51-75GscEiawzk [facility] Comment on above:Performed By: #### CBCA, CMP, , 2776-04 ####[facility] ([id number])[address] [address], [place] [address] Hemoglobin (Bld) [Mass/Vol]7.4 g/dLLow11.7-15.5PGuernsey Memorial HospitalComment on above:Performed By: #### CBCA, CMP, , 2776-04 ####[facility] ([id number])[address] [address] [place] [address]Sfdemypfwbx (Bld) [#/Vol]1.4 10*3/uLNormal1.0-3.5PGuernsey Memorial HospitalComment on above: Performed By: #### CBCA, CMP, , 2776-04 ####[facility] ([id number])[address] [address], [place] [address]Eakfxctsinv/100 WBC (Bld) 18.9 %NormalProMedica Lynn HospitalComment on above:Performed By: #### CBCA, CMP, , 2776-04 ####[facility] ([id number])[address], [address], [place] [address]UCB (RBC) [Entitic mass]32.0 vbOhbjgs08-63 [facility] HospitalComment on above:Performed By: #### CBCA, CMP, , 2776-04 ####[facility] ([id number])[address], [address] [place] [address]IEBM (RBC) [Mass/Vol]33.6 g/hVNcxngn99-59UsrHygcxh Lynn HospitalComment on above:Performed By: #### CBCA, CMP, , 2776-04 ####[facility] ([id number])[address], [address] [place] [address]FQR (RBC) [Entitic vol]95 mCWmziiv11-974GfoGkvode Lynn HospitalComment on above:Performed By: #### CBCA, CMP, , 2776-04 ####[facility] ([id number])[address] [address] [place] [address]Nrmsbbblk (Bld) [#/Vol]0.7 10*3/uLNormal0-0.9[facility] HospitalComment on above:Performed By: #### CBCA, CMP, , 2776-04 ####[facility] ([id number])[address] [address] [place] [address]Anhacifub/100 WBC (Bld)9.5 %NormalProMedica Lynn HospitalComment on above:Performed By: #### CBCA, CMP, , 2776-04 ####[facility] ([id number])[address], [address], [place] [address]Pkknhhzlszt/100 WBC (Bld)58.3 %NormalProCincinnati Children'S Hospital Medical Centerca Phoenix HospitalComment on above:Performed By: #### CBCChristiano CMP, , 2776-04 ####[facility] ([id number])[address], [address] [place] [address]Kcmelcym mean volume (Bld) [Entitic vol]6.8 fLLow7-12[facility] HospitalComment on above:Performed By: #### CBCChristiano CMP, , 2776-04 ####[facility] ([id number])[address], [address] [place] [address] 139[address]Guquwglcj (Bld) [#/Vol]458 10*3/zLPvka468-278BalRqkstl [facility] Comment on above:Performed By: #### NAMITA CMP, , 2776-04 ####[facility] ([id number])[address], [address] [place] [address]VLR COUNT2.30 X10E12/LLow3.80-5.20ProCinc[facility] Medical Centerca [facility] HospitalComment on above: Performed By: #### CBCChristiano, CMP, , 2776-04 ####[facility] ([id number])[address] [address] [place] [address]CDY (Bld) [#/Vol]7.3 10*3/uLNormal4.0-11.0ProCinc[facility] Children'[facility] Hospital Medical Centerca [facility] HospitalComment on above:Performed By: #### CBCChristiano, CMP, , 2776-04 ####[facility] ([id number])[address], [address] [place] [address]RBLJMNUVUIFTR METABOLIC PANELon 74-42-8427Gwjahpn [Mass/Vol]3.8 g/dLNormal3.2-5.3[facility] HospitalComment on above:Performed By: #### NAMITA CMP, , 2776-04 ####[facility] ([id number])[address], [address], [place] [address]SYS [Catalytic activity/Vol]66 U/GUjzovx69-464JkfCvvscs [facility] Comment on above:Performed By: #### NAMITA CMP, , 2776-04 ####[facility] ([id number])[address], [address], [place] [address]JRE [Catalytic activity/Vol]5 U/LNormal0-31[facility] HospitalComment on above:Performed By: #### NAMITA, CMP, , 2776-04 ####[facility] ([id number])[address], [address], [place] [address]Mnfkq gap [Moles/Vol]15 mmol/LNormal5-15Pro[facility] HospitalComment on above:Performed By: #### NAMITA CMP, , 2776-04 ####[facility] ([id number])[address], [address], [place] [address]EYD [Catalytic activity/Vol]11 U/LNormal0-41 [facility] HospitalComment on above:Performed By: #### NAMITA CMP, , 2776-04 ####[facility] ([id number])[address], [address], [place] [address]Rztpjwpca [Mass/Vol]0.9 mg/dLNormal0.3-1.2[facility] HospitalComment on above:Performed By: #### NAMITA, CMP, , 2776-04 ####[facility] ([id number])[address], [address], [place] [address]Jlywfah [Mass/Vol]10.2 mg/dLNormal8.5-10.5[facility] HospitalComment on above:Performed By: #### RENA BREAUX, , 2776-04 ####[facility] ([id number])[address], [address], [place] [address]Pvsnxmie [Moles/Vol]103 mmol/AGatbpi53-570MnmOxxyxg [place] HospitalComment on above: Performed By: #### RENA BREAUX, , 2776-04 ####[facility] ([id number])[address], [address], [place] [address]ZL3 [Moles/Vol]23 mmol/L Jrehbf54-44TcqCwqimfGuernsey Memorial HospitalComment on above:Performed By: #### RENA BREAUX, , 2776-04 ####[facility] ([id number])[address], [address], [place] [address]Dcpkbzpvhz [Mass/Vol]3.65 mg/dLHigh0.40-1.00 [facility] HospitalComment on above:Result Comment: METHOD TRACEABLE TO IDMS STANDARDPerformed By: #### RENA BREAUX, , 2776-04 ####[facility] ([id number])[address], [address], [place] [address]CBK/1.73 sq M.predicted among non-blacks MDRD (S/P/Bld) [Vol rate/Area]14 mL/min/{1.73_m2} Low>59Pro[facility] HospitalComment on above:Result Comment: Reported eGFR is based on theCKD-EPI 2020 equation that doesnot use a race coefficient.Performed By: #### RENA BREAUX, , 2776-04 ####[facility] ([id number])[address], [address], [place] [address]Ickvjkm [Mass/Vol]101 mg/dL Pfbg33-53IklHqosrw [place] HospitalComment on above:Performed By: #### RENA BREAUX, , 2776-04 ####[facility] ([id number])[address], [address] [place] [address]Jdedqgrbh [Moles/Vol]3.6 mmol/LNormal3.5-5.0Pro[facility] HospitalComment on above:Performed By: #### RENA BREAUX, , 2776-04 ####[facility] ([id number])[address], [address], [place] [address]Kfyqiph [Mass/Vol]6.8 g/dLNormal6.0-8.0Pro[facility] HospitalComment on above:Performed By: #### RENA BREAUX, , 2776-04 ####[facility] ([id number])[address], [address] [place] [address]Btkyvv [Moles/Vol]141 mmol/ETxyowg792-237SsdLdzuxx [place] HospitalComment on above: Performed By: #### RENA BREAUX, , 2776-04 ####[facility] ([id number])[address], [address] [place] [address]Clpf nitrogen [Mass/Vol]76 mg/dLHigh5-27Pro[facility] HospitalComment on above:Performed By: #### RENA BREAUX, , 2776-04 ####[facility] ([id number])[address], [address], [place] [address]Sunfiee Glucometer (BldC) [Mass/Vol]on 73-70-4038Donrxbn [Mass/Vol]95 mg/rSHsidaj89-74QnzChxbpf [facility] MAGNESIUMon 42-10-8227Crjsnhqme [Mass/Vol]2.2 mg/dLNormal1.8-2.6Pro[facility] HospitalComment on above:Performed By: #### RENA BREAUX, , 2776-04 ####[facility] ([id number])[address], [address], [place] [address]REYEUYJARWae 56-65-7035Krvbgwuit [Mass/Vol]5.2 mg/dLHigh2.4-4.9[facility] HospitalComment on above:Performed By: #### CBCA, CMP, , 2776-04 ####[facility] ([id number])[address], [address], [place] [address]TUWWIDYCUru 35-79-4103Uislycyrv [Moles/Vol]3.9 mmol/LNormal3.5-5.0 [facility] HospitalComment on above:Performed By: #### 2823-3 ####[facility] ([id number])[address], [address], [place] [address] VENOUS BLOOD GASon 31-78-4761JVGFK'S TESTNormalProMedica Lynn HospitalComment on above:Performed By: #### VBG ####[facility] ([id number])[address] [place], [place] [address]JKBX,DEFICIT3.0 MMOL/LHigh0.0-2.0[facility] HospitalComment on above:Performed By: #### VBG ####[facility] ([id number])[address] [place], [place] [address]Hntm ostwqlpahrb11.6 [degF]Normal 37.0[facility] HospitalComment on above:Performed By: #### VBG ####[facility] ([id number])[address] [place], [place] [address]LZU8 (Bld) [Moles/Vol]24.5 mmol/LHigh20.0-24.0[facility] HospitalComment on above: Performed By: #### VBG ####[facility] ([id number])[address] [place], [place] [address]YBYR. O2 CONC.4 %NormalProMedica Lynn HospitalComment on above:Performed By: #### VBG ####[facility] ([address] [place] [address])[address] [place], [place] [address]Sgpivm saturation in Blood54.0 %Low>80.0[facility] HospitalComment on above:Performed By: #### VBG ####[facility] ([address] [place] [address])[address] [place], [place] [address]TSTDOX SOURCENCNormal [facility] HospitalComment on above:Performed By: #### VBG ####[facility] ([address] [place] [address])[address] [place], [place] [address]DQU8, VENOUS 58.6 KCKYHalj74-75IsgXsuurf Lynn HospitalComment on above:Performed By: #### VBG ####[facility] ([address] [place] [address])[address] [place] [address] PH, VENOUS7.050Etj4.320-7.420[facility] HospitalComment on above:Performed By: #### VBG ####[facility] ([address] [place] [address])[address] [place], [place] [address]BX2, BNFGIH15 AHJDLqgcdh51-56GbgScltxf [facility] Comment on above:Performed By: #### VBG ####[facility] ([address] [place] [address])[address] [place], [place] [address]PLPLSJ SITEN/ANormalProMedica Lynn HospitalComment on above:Performed By: #### VBG ####[facility] ([address] [place] [address])[address] [place], [place] [address]PYJLKK TYPEVENOUSNormal [facility] HospitalComment on above:Performed By: #### VBG ####[facility] ([address] [place] [address])[address] [place], [place] [address]ME CHEST 1 VWon 14-91-8127ZF CHEST 1 VWNormalProMercy Health Clermont HospitalCBC AND AUTO DIFFon 05-70-1560VUNFAWQO BASOPHIL0.1 X10E9/LNormal0.0-0.2PGu[facility]sey [facility] Comment on above:Performed By: #### NAMITA [facility], , 2776-04 ####[facility] ([id number])[address], [address], [place] [address] ABSOLUTE NEUTROPHIL4.9 X10E9/LNormal1.5-6.6Pro[facility] HospitalComment on above:Performed By: #### NAMITA [facility], , 2776-04 ####[facility] ([id number])[address], [address], [place] [address]Yztnhkfda/100 WBC (Bld)1.3 %NormalProMercy Health [facility] HospitalComment on above:Performed By: #### CBCChristiano [facility], , 2776-04 ####[facility] ([id number])[address], [address] [place] [address]Qhuqkkyniin (Bld) [#/Vol]0.8 10*3/uLHigh 0.0-0.4Pro[facility] HospitalComment on above:Performed By: #### CBCChrisitano CMP, , 2776-04 ####[facility] ([id number])[address], [address], [place] [address]Vuvxnnovmps/100 WBC (Bld)9.6 %NormalProMercy Health [facility] HospitalComment on above:Performed By: #### CBCA, CMP, , 2776-04 ####[facility] ([id number])[address], [address] [place] [address]Igwhwozzarv distribution width (RBC) [Ratio]17.6 %High11.5-15.0Pro[facility] HospitalComment on above:Performed By: #### CBCA, CMP, , 2776-04 ####[facility] ([id number])[address], [address], [place] [address]Txexhbtrhr (Bld) [Volume fraction]22.6 %Yjj81-47ShpGjkzkm [facility] Comment on above:Performed By: #### CBCA, CMP, , 2776-04 ####[facility] ([id number])[address], [address] [place] [address] Hemoglobin (Bld) [Mass/Vol]7.4 g/dLLow11.7-15.5PSalem [facility] HospitalComment on above:Performed By: #### CBCA, CMP, , 2776-04 ####[facility] ([id number])[address], [address], [place] [address]Semuieydnnj (Bld) [#/Vol]1.3 10*3/uLNormal1.0-3.5PSalem City Hospital HospitalComment on above: Performed By: #### CBCChristiano, CMP, , 2776-04 ####[facility] ([id number])[address] [address], [place] [address]Egfbiffttvi/100 WBC (Bld) 15.7 %NormalProMercy Health [facility] HospitalComment on above:Performed By: #### CBCA, CMP, , 2776-04 ####[facility] ([id number])[address], [address] [place] [address]HDU (RBC) [Entitic mass]31.4 fvWaqcha82-85 [facility] HospitalComment on above:Performed By: #### CBCA, CMP, , 2776-04 ####[facility] ([id number])[address], [address] [place] [address]ZZUX (RBC) [Mass/Vol]32.8 g/kYImxatj63-23VeoWnfuqr Lynn HospitalComment on above:Performed By: #### CBCA, CMP, , 2776-04 ####[facility] ([id number])[address], [address] [place] [address]EFV (RBC) [Entitic vol]96 fHSsdwop56-879CxnMyzscd [facility] HospitalComment on above:Performed By: #### CBCA, CMP, , 2776-04 ####[facility] ([id number])[address], [address] [place] [address]Kvketsyva (Bld) [#/Vol]0.9 10*3/uLNormal0-0.9[facility] HospitalComment on above:Performed By: #### CBCA, CMP, , 2776-04 ####[facility] ([id number])[address], [address] [place] [address]Nccfqbqdu/100 WBC (Bld)11.8 %NormalProMedica Lynn HospitalComment on above:Performed By: #### CBCA, CMP, , 2776-04 ####[facility] ([id number])[address], [address] [place] [address]Azjktxkrkyr/100 WBC (Bld)61.6 %NormalProMedica Lynn HospitalComment on above:Performed By: #### CBCA, CMP, , 2776-04 ####[facility] ([id number])[address], [address] [place] [address]Jricdgqd mean volume (Bld) [Entitic vol]6.7 fLLow7-12ProMedica Lynn HospitalComment on above:Performed By: #### CBCA, CMP, , 2776-04 ####[facility] ([id number])[address], [address], [place] [address]Ofanopqle (Bld) [#/Vol]430 10*3/qNIzquby608-159XbwOebfnpAultman Orrville Hospital Comment on above:Performed By: #### NAMITA CMP, , 1 ####[facility] ([id number])[address], [address], [place] [address]WOX COUNT2.36 X10E12/LLow3.80-5.20ProMercy Health Clermont HospitalComment on above: Performed By: #### RENA BREAUX, , 2776-04 ####[facility] ([id number])[address], [address], [place] [address]NFR (Bld) [#/Vol]8.0 10*3/uLNormal4.0-11.0ProMercy Health Clermont HospitalComment on above:Performed By: #### NAMITA CMP, , 2776-04 ####[facility] ([id number])[address], [address], [place] [address]SXPMHSTWIMXNJ METABOLIC PANELon 47-62-9742Gwsuhta [Mass/Vol]3.9 g/dLNormal3.2-5.3PGuernsey Memorial HospitalComment on above:Performed By: #### NAMITA CMP, , 2776-04 ####[facility] ([id number])[address], [address], [place] [address]TMU [Catalytic activity/Vol]64 U/TTnmnun92-189NewQyimuvAultman Orrville Hospital Comment on above:Performed By: #### CBCA, CMP, , 1 ####[facility] ([id number])[address], [address], [place] [address]NII [Catalytic activity/Vol]5 U/LNormal0-31Pro[facility] Lynn HospitalComment on above:Performed By: #### RENA BREAUX, , 2776-04 ####[facility] ([id number])[address], [address], [place] [address]Rqzdi gap [Moles/Vol]16 mmol/LHigh5-15[facility] HospitalComment on above:Performed By: #### RENA BREAUX, , 2776-04 ####[facility] ([id number])[address], [address], [place] [address]MFL [Catalytic activity/Vol]11 U/LNormal0-41 [facility] HospitalComment on above:Performed By: #### RENA BREAUX, , 2776-04 ####[facility] ([id number])[address], [address], [place] [address]Hshnwzgve [Mass/Vol]1.0 mg/dLNormal0.3-1.2ProMedOhioHealth Riverside Methodist Hospital HospitalComment on above:Performed By: #### RENA BREAUX, , 2776-04 ####[facility] ([id number])[address], [address], [place] [address]Ljuvcwz [Mass/Vol]10.4 mg/dLNormal8.5-10.5PSalem City Hospital HospitalComment on above:Performed By: #### RENA BREAUX, , 2776-04 ####[facility] ([id number])[address], [address], [place] [address]Apzwrorv [Moles/Vol]101 mmol/AOcyvph59-464HzxYutqxz [place] HospitalComment on above: Performed By: #### RENA BREAUX, , 2776-04 ####[facility] ([id number])[address], [address], [place] [address]FB9 [Moles/Vol]21 mmol/LLow 22-32[facility] HospitalComment on above:Performed By: #### RENA BREAUX, , 2776-04 ####[facility] ([id number])[address], [address], [place] [address]Qdloyoyimh [Mass/Vol]3.26 mg/dLHigh0.40-1.00[facility] HospitalComment on above:Result Comment: METHOD TRACEABLE TO IDMS STANDARDPerformed By: #### RENA BREAUX, , 2776-04 ####[facility] ([id number])[address] [address]NKE/1.73 sq M.predicted among non-blacks MDRD (S/P/Bld) [Vol rate/Area]16 mL/min/{1.73_m2} Low>59Pro[facility] HospitalComment on above:Result Comment: Reported eGFR is based on theCKD-EPI 2020 equation that doesnot use a race coefficient.Performed By: #### RENA BREAUX, , 2776-04 ####[facility] ([id number])[address] [address] [place] [address]Emidxvw [Mass/Vol]83 mg/dL Yenlap99-80QuvTbsisw [place] HospitalComment on above:Performed By: #### RENA BREAUX, , 2776-04 ####[facility] ([id number])[address], [address], [place] [address]Ogxltohvf [Moles/Vol]3.9 mmol/LNormal3.5-5.0 [facility] HospitalComment on above:Performed By: #### RENA BREAUX, , 2776-04 ####[facility] ([id number])[address] [address], [place] [address]Neykynr [Mass/Vol]7.0 g/dLNormal6.0-8.0[facility] Lynn HospitalComment on above:Performed By: #### RENA BREAUX, , 2776-04 ####[facility] ([id number])[address], [address], [place] [address]Hvossh [Moles/Vol]138 mmol/IXdbzgx318-149DwqBzrjgc Lynn HospitalComment on above:Performed By: #### RENA BREAUX, , 2776-04 ####[facility] ([id number])[address], [address], [place] [address]Mxrc nitrogen [Mass/Vol]76 mg/dLHigh5-27[facility] Lynn HospitalComment on above:Performed By: #### RENA BREAUX, , 2776-04 ####[facility] ([id number])[address], [address] [place] [address]DCOPNGFMAaz 06-28-2024 Magnesium [Mass/Vol]2.4 mg/dLNormal1.8-2.6[facility] HospitalComment on above:Performed By: #### RENA BREAUX, , 2776-04 ####[facility] ([id number])[address], [address] [place] [address]LLKPJVFGBRps 75-04-6453Nmxwgnboc [Mass/Vol]5.5 mg/dLHigh2.4-4.9Pro[facility] Comment on above:Performed By: #### RENA BREAUX, , 2776-04 ####[facility] ([id number])[address], [address], [place] [address]UGD AND AUTO DIFFon 09-03-6029RJURCKNT BASOPHIL0.1 X10E9/LNormal0.0-0.2[facility] Lynn HospitalComment on above:Performed By: #### RENA BREAUX, , 2776-04 ####[facility] ([id number])[address], [address] [place] [address]WBZXLORD NEUTROPHIL4.1 X10E9/LNormal1.5-6.6[facility] Comment on above:Performed By: #### CBCChristiano, CMP, , 2776-04 ####[facility] ([id number])[address], [address] [place] [address] Basophils/100 WBC (Bld)0.8 %NormalProMercy Health [facility] HospitalComment on above: Performed By: #### CBCA, CMP, , 2776-04 ####[facility] ([id number])[address], [address] [place] [address]Gqxqgvnnkfj (Bld) [#/Vol] 0.4 10*3/uLNormal0.0-0.4Pro[facility] HospitalComment on above:Performed By: #### CBCA, CMP, , 2776-04 ####[facility] ([id number])[address] [address] [place] [address]Fmmhtnlesse/100 WBC (Bld) 6.0 %NormalProMercy Health [facility] HospitalComment on above:Performed By: #### CBCA, CMP, , 2776-04 ####[facility] ([id number])[address], [address] [place] [address]Boofcufzlnr distribution width (RBC) [Ratio]17.5 %High11.5-15.0Pro[facility] HospitalComment on above:Performed By: #### CBCA, CMP, , 2776-04 ####[facility] ([id number])[address], [address] [place] [address]Grvgqyzdji (Bld) [Volume fraction]22.2 %Low 35-47Pro[facility] HospitalComment on above:Performed By: #### CBCA, CMP, , 2776-04 ####[facility] ([id number])[address], [address], [place] [address]Fsaygcaxpg (Bld) [Mass/Vol]7.4 g/dLLow11.7-15.5 [facility] HospitalComment on above:Performed By: #### CBCA, CMP, , 2776-04 ####[facility] ([id number])[address], [address], [place] [address]Pteubdxlbrq (Bld) [#/Vol]1.3 10*3/uLNormal1.0-3.5[facility] HospitalComment on above:Performed By: #### CBCA, CMP, , 2776-04 ####[facility] ([id number])[address], [address], [place] [address]Pcuuquusrht/100 WBC (Bld)19.0 %NormalProCincinnati Children'S Hospital Medical Centerca Phoenix HospitalComment on above:Performed By: #### CBCA, CMP, , 2776-04 ####[facility] ([id number])[address], [address], [place] [address]ZQP (RBC) [Entitic mass]31.8 jaFruwga12-18QtpVujsct Phoenix HospitalComment on above:Performed By: #### CBCA, CMP, , 2776-04 ####[facility] ([id number])[address], [address], [place] [address]GFBL (RBC) [Mass/Vol]33.4 g/sVRqdfph70-88WuxCevdok Phoenix HospitalComment on above:Performed By: #### CBCA, CMP, , 2776-04 ####[facility] ([id number])[address], [address], [place] [address]VNX (RBC) [Entitic vol]95 yJPimzod88-166 [facility] HospitalComment on above:Performed By: #### CBCA, CMP, , 2776-04 ####[facility] ([id number])[address], [address], [place] [address]Pzrrdevuf (Bld) [#/Vol]0.9 10*3/uLNormal0-0.9[facility] HospitalComment on above:Performed By: #### CBCA, CMP, , 2776-04 ####[facility] ([id number])[address], [address], [place] [address]Aaqnlmrme/100 WBC (Bld)13.7 %NormalProMedica Lynn HospitalComment on above:Performed By: #### CBCA, CMP, , 2776-04 ####[facility] ([id number])[address], [address], [place] [address]Ctgcxsnplgo/100 WBC (Bld)60.5 %NormalProMedica Lynn HospitalComment on above:Performed By: #### CBCA, CMP, , 2776-04 ####[facility] ([id number])[address], [address], [place] [address]Fidzexzq mean volume (Bld) [Entitic vol]6.8 fLLow7-12[facility] HospitalComment on above:Performed By: #### CBCA, CMP, , 2776-04 ####[facility] ([id number])[address], [address], [place] [address]Dddzqzyfz (Bld) [#/Vol]405 10*3/kOJzleaw796-571 [facility] HospitalComment on above:Performed By: #### CBCA, CMP, , 2776-04 ####[facility] ([id number])[address], [address], [place] [address]LMB COUNT2.33 X10E12/LLow3.80-5.20[facility] Comment on above:Performed By: #### RENA BREAUX, , 1 ####[facility] ([id number])[address], [address], [place] [address]ZBJ (Bld) [#/Vol]6.8 10*3/uLNormal4.0-11.0ProMer[facility]ermont HospitalComment on above: Performed By: #### RENA BREAUX, , 2776-04 ####[facility] ([id number])[address], [address], [place] [address]JKDQYEHQJAZKH METABOLIC PANELon 07-99-4864Wexjffu [Mass/Vol]4.0 g/dLNormal3.2-5.3PS[facility] HospitalComment on above:Performed By: #### RENA BREAUX, , 2776-04 ####[facility] ([id number])[address], [address], [place] [address]LGD [Catalytic activity/Vol]60 U/DZyvmfh98-401KamBaxubnAultman Orrville Hospital Comment on above:Performed By: #### NAMITA CMP, , 2776-04 ####[facility] ([id number])[address], [address], [place] [address]ZMZ [Catalytic activity/Vol]6 U/LNormal0-31PGuernsey Memorial HospitalComment on above:Performed By: #### NAMITA, CMP, , 2776-04 ####[facility] ([id number])[address], [address], [place] [address]Yxstp gap [Moles/Vol]15 mmol/LNormal5-15Pro[facility] HospitalComment on above:Performed By: #### RENA BREAUX, , 2776-04 ####[facility] ([id number])[address], [address], [place] [address]PKL [Catalytic activity/Vol]13 U/LNormal0-41 [facility] HospitalComment on above:Performed By: #### RENA BREAUX, , 2776-04 ####[facility] ([id number])[address], [address], [place] [address]Rvacugqem [Mass/Vol]0.9 mg/dLNormal0.3-1.2[facility] HospitalComment on above:Performed By: #### RENA BREAUX, , 2776-04 ####[facility] ([id number])[address], [address], [place] [address]Pgadzcj [Mass/Vol]10.1 mg/dLNormal8.5-10.5[facility]MedOhio[facility] HospitalComment on above:Performed By: #### RENA BREAUX, , 2776-04 ####[facility] ([id number])[address], [address], [place] [address]Tvtlmxjo [Moles/Vol]102 mmol/RQhgled08-316BggRtywwo Phoenix HospitalComment on above: Performed By: #### RENA BREAUX, , 2776-04 ####[facility] ([id number])[address], [address], [place] [address]YF9 [Moles/Vol]22 mmol/L Wfcpdk70-88QecFybojl [place] HospitalComment on above:Performed By: #### RENA BREAUX, , 2776-04 ####[facility] ([id number])[address], [address], [place] [address]Fjlrujckbn [Mass/Vol]2.91 mg/dLHigh0.40-1.00 [facility] HospitalComment on above:Result Comment: METHOD TRACEABLE TO IDCA STANDARDPerformed By: #### RENA BREAUX, , 2776-04 ####[facility] ([id number])[address] [address] [place] [address]OXX/1.73 sq M.predicted among non-blacks MDRD (S/P/Bld) [Vol rate/Area]18 mL/min/{1.73_m2} Low>59Pro[facility] HospitalComment on above:Result Comment: Reported eGFR is based on theCKD-EPI 2020 equation that doesnot use a race coefficient.Performed By: #### RENA BREAUX, , 2776-04 ####[facility] ([id number])[address] [address], [place] [address]Rzqhiiw [Mass/Vol]80 mg/dL Mdimjd91-65EshZtlugg [place] HospitalComment on above:Performed By: #### RENA BREAUX, , 2776-04 ####[facility] ([id number])[address], [address], [place] [address]Bysezctxb [Moles/Vol]4.2 mmol/LNormal3.5-5.[address] [facility] HospitalComment on above:Performed By: #### RENA BREAUX, , 2776-04 ####[facility] ([id number])[address] [address], [place] [address]Yiotkda [Mass/Vol]7.0 g/dLNormal6.0-8.0Pro[facility] HospitalComment on above:Performed By: #### RENA BREAUX, , 2776-04 ####[facility] ([id number])[address], [address], [place] [address]Lyatjg [Moles/Vol]139 mmol/KIasmnw428-293GooIaxfzg [place] HospitalComment on above:Performed By: #### RENA BREAUX, , 2776-04 ####[facility] ([id number])[address], [address] [place] [address]Blgc nitrogen [Mass/Vol]71 mg/dLHigh5-27Pro[facility] HospitalComment on above:Performed By: #### RENA BREAUX, , 2776-04 ####[facility] ([id number])[address], [address] [place] [address]CJQ core IgM IA Qlon 22-48-6501IVWLHATXF B CORE IGMNon-ReactiveNormalNRCTAultman Orrville Hospital Comment on above:Result Comment: NEW TEST METHODPerformed By: #### 17539-7 ####[facility] ([id number])[address], [address] [place] [address]EJSLFJNXQsh 11-09-2334Nojnagoty [Mass/Vol]2.5 mg/dLNormal1.8-2.6Pro[facility] HospitalComment on above:Performed By: #### RENA BREAUX, , 2776-04 ####[facility] ([id number])[address], [address] [place] [address]OEAPFQELHBoc 08-68-2414Euiahkrew [Mass/Vol]5.3 mg/dLHigh2.4-4.9Pro[facility] HospitalComment on above:Performed By: #### RENA BREAUX, , 2776-04 ####[facility] ([id number])[address], [address] [place] [address]ERS AND AUTO DIFFon 89-59-2723DGSPPMYP BASOPHIL0.2 X10E9/LNormal0.0-0.2 [facility] HospitalComment on above:Performed By: #### RNEA BREAUX, , 2776-04 ####[facility] ([id number])[address], [address] [place] [address]QOUJESIB NEUTROPHIL3.7 X10E9/LNormal1.5-6.6[facility] HospitalComment on above:Performed By: #### CBCA, CMP, , 2776-04 ####[facility] ([id number])[address], [address] [place] [address]Gxtczoqmy/100 WBC (Bld)2.7 %NormalProMedica Lynn HospitalComment on above:Performed By: #### CBCA, CMP, , 2776-04 ####[facility] ([id number])[address], [address], [place] [address]Ftrjwgpaufk (Bld) [#/Vol]0.1 10*3/uLNormal0.0-0.4[facility] HospitalComment on above: Performed By: #### CBCA, CMP, , 2776-04 ####[facility] ([id number])[address], [address] [place] [address]Ltgtnswpwzz/100 WBC (Bld) 2.3 %NormalProMedica Lynn HospitalComment on above:Performed By: #### CBCA, CMP, , 2776-04 ####[facility] ([id number])[address], [address] [place] [address]Rxhbawxdojr distribution width (RBC) [Ratio]17.4 %High11.5-15.0[facility] HospitalComment on above:Performed By: #### CBCA, CMP, , 2776-04 ####[facility] ([id number])[address], [address], [place] [address]Kwmbgpttaf (Bld) [Volume fraction]22.2 %Low 35-47[facility] HospitalComment on above:Performed By: #### CBCA, CMP, , 2776-04 ####[facility] ([id number])[address], [address], [place] [address]Uvlpcwabox (Bld) [Mass/Vol]7.4 g/dLLow11.7-15.5 [facility] HospitalComment on above:Performed By: #### CBCA, CMP, , 2776-04 ####[facility] ([id number])[address], [address], [place] [address]Cvijsynzgln (Bld) [#/Vol]1.2 10*3/uLNormal1.0-3.5[facility] HospitalComment on above:Performed By: #### CBCA, CMP, , 2776-04 ####[facility] ([id number])[address], [address], [place] [address]Bgejlfzuagu/100 WBC (Bld)19.4 %NormalProMercy Health [facility] HospitalComment on above:Performed By: #### CBCA, CMP, , 2776-04 ####[facility] ([id number])[address], [address], [place] [address]HWB (RBC) [Entitic mass]31.8 dtRncjoq17-86CvhExlwhn [place] HospitalComment on above:Performed By: #### CBCA, CMP, , 2776-04 ####[facility] ([id number])[address], [address], [place] [address]BJIZ (RBC) [Mass/Vol]33.6 g/vRJryjty31-20ZzfXjorwv [facility] HospitalComment on above:Performed By: #### CBCA, CMP, , 2776-04 ####[facility] ([id number])[address], [address], [place] [address]QFN (RBC) [Entitic vol]95 iNSfsmsu86-010 [facility] HospitalComment on above:Performed By: #### CBCA, CMP, , 2776-04 ####[facility] ([id number])[address], [address], [place] [address]Tqhsngmpu (Bld) [#/Vol]1.0 10*3/uLHigh0-0.9[facility] HospitalComment on above:Performed By: #### CBCA, CMP, , 2776- ####[facility] ([id number])[address], [address], [place] [address]Qchcqsdhd/100 WBC (Bld)15.5 %NormalProMedica Lynn HospitalComment on above:Performed By: #### CBCA, CMP, , 2776-04 ####[facility] ([id number])[address], [address], [place] [address]Vuiqkiypdxp/100 WBC (Bld)60.1 %NormalProMedica Lynn HospitalComment on above:Performed By: #### CBCA, CMP, , 2776-04 ####[facility] ([id number])[address], [address], [place] [address]Vvrvwutb mean volume (Bld) [Entitic vol]6.7 fLLow7-12[facility] HospitalComment on above:Performed By: #### CBCA, CMP, , 2776- ####[facility] ([id number])[address], [address], [place] [address]Duicwbmcw (Bld) [#/Vol]394 10*3/oLDyaqew334-461 [facility] HospitalComment on above:Performed By: #### CBCA, CMP, , 2776- ####[facility] ([id number])[address], [address], [place] [address]NTO COUNT2.34 X10E12/LLow3.80-5.20[facility] Comment on above:Performed By: #### RENA BREAUX, , 2776-04 ####[facility] ([id number])[address], [address], [place] [address]HYM (Bld) [#/Vol]6.2 10*3/uLNormal4.0-11.0ProMer[facility] HospitalComment on above: Performed By: #### RENA BREAUX, , 2776-04 ####[facility] ([id number])[address], [address] [place] [address]WFMJIAWCCCAWF METABOLIC PANELon 31-09-9341Ibvbfap [Mass/Vol]4.4 g/dLNormal3.2-5.3PGuernsey Memorial HospitalComment on above:Performed By: #### RENA BREAUX, , 2776-04 ####[facility] ([id number])[address], [address], [place] [address]KTE [Catalytic activity/Vol]63 U/LJjcboo86-730LqrKnznyeAultman Orrville Hospital Comment on above:Performed By: #### RENA BREAUX, , 2776-04 ####[facility] ([id number])[address], [address], [place] [address]WOO [Catalytic activity/Vol]5 U/LNormal0-31PGuernsey Memorial HospitalComment on above:Performed By: #### NAMITA CMP, , 2776-04 ####[facility] ([id number])[address], [address], [place] [address]Zjuxm gap [Moles/Vol]17 mmol/LHigh5-15[facility] HospitalComment on above:Performed By: #### RENA BREAUX, , 2776-04 ####[facility] ([id number])[address], [address], [place] [address]RJT [Catalytic activity/Vol]12 U/LNormal0-41 [facility] HospitalComment on above:Performed By: #### RENA BREAUX, , 2776-04 ####[facility] ([id number])[address], [address], [place] [address]Pldieuwyw [Mass/Vol]1.0 mg/dLNormal0.3-1.2[facility] HospitalComment on above:Performed By: #### RENA BREAUX, , 2776-04 ####[facility] ([id number])[address], [address], [place] [address]Cwwnjut [Mass/Vol]10.2 mg/dLNormal8.5-10.5[facility]MedOhio[facility] HospitalComment on above:Performed By: #### RENA BREAUX, , 2776-04 ####[facility] ([id number])[address], [address], [place] [address]Rbhjozdc [Moles/Vol]98 mmol/FIxsfwz09-320RltXgbirq [place] HospitalComment on above: Performed By: #### RENA BREAUX, , 2776-04 ####[facility] ([id number])[address], [address], [place] [address]CN1 [Moles/Vol]22 mmol/L Sqgjdy11-48LfhRrkhva Lynn HospitalComment on above:Performed By: #### RENA BREAUX, , 2776-04 ####[facility] ([id number])[address], [address], [place] [address]Dizmrjbkxe [Mass/Vol]2.31 mg/dLHigh0.40-1.00 [facility] HospitalComment on above:Result Comment: METHOD TRACEABLE TO IDMS STANDARDPerformed By: #### RENA BREAUX, , 2776-04 ####[facility] ([id number])[address] [address], [place] [address]BCM/1.73 sq M.predicted among non-blacks MDRD (S/P/Bld) [Vol rate/Area]23 mL/min/{1.73_m2} Low>59[facility] HospitalComment on above:Result Comment: Reported eGFR is based on theCKD-EPI 2020 equation that doesnot use a race coefficient.Performed By: #### RENA BREAUX, , 2776-04 ####[facility] ([id number])[address] [address], [place] [address]Acwvkbb [Mass/Vol]94 mg/dL Nhuafn93-27EwoQgpdor [place] HospitalComment on above:Performed By: #### RENA BREAUX, , 2776-04 ####[facility] ([id number])[address], [address], [place] [address]Fakekbvom [Moles/Vol]3.2 mmol/LLow3.5-5.[address] [facility] HospitalComment on above:Performed By: #### RENA BREAUX, , 2776-04 ####[facility] ([id number])[address] [address] [place] [address]Dqscass [Mass/Vol]7.5 g/dLNormal6.0-8.0Pro[facility] HospitalComment on above:Performed By: #### RENA BREAUX, , 2776-04 ####[facility] ([id number])[address] [address], [place] [address]Lxirif [Moles/Vol]137 mmol/XBqfqus553-889YlcCdirgu [place] HospitalComment on above:Performed By: #### RENA BREAUX, , 2776-04 ####[facility] ([id number])[address], [place] [address]Wkgy nitrogen [Mass/Vol]63 mg/dLHigh5-27Pro[facility] HospitalComment on above:Performed By: #### RENA BREAUX, , 2776-04 ####[facility] ([id number])[address], [place] [address]YM SWALLOW MOTILITY FUNCTIONon 94-16-9882NV SWALLOW MOTILITY FUNCTIONNormalProMercy [facility] MAGNESIUMon 41-86-7484Mnufjmzcl [Mass/Vol]1.9 mg/dLNormal1.8-2.6Pro[facility] HospitalComment on above:Performed By: #### RENA BREAUX, , 2776-04 ####[facility] ([id number])[address] [place] [address]Daalqnzbj Ionized ISE (Bld) [Moles/Vol]on 63-07-4377Rardzjove [Moles/Vol] 0.73 mmol/LNormal0.45-0.74ProMercy Health Clermont HospitalComment on above:Result Comment: NEW REFERENCE RANGEPerformed By: #### 19175-9 ####[facility] ([id number])[address] [address], [place] [address]STKEKTDTNDhp 56-65-4899Utxvgsiet [Mass/Vol]4.5 mg/dLNormal2.4-4.9[facility] Comment on above:Performed By: #### RENA BREAUX, , 1 ####[facility] ([id number])[address], [place] [address] POTASSIUMon 75-38-4019Qtzcdkwhv [Moles/Vol]4.3 mmol/LNormal3.5-5.0[facility] HospitalComment on above:Performed By: #### 2823-3 ####[facility] ([id number])[address] [place] [address]Sobqdlzmk [Moles/Vol]3.5 mmol/LNormal3.5-5.0[facility] Lynn HospitalComment on above: Performed By: #### 2823-3 ####[facility] ([id number])[address], [place] [address]CL CHEST 1 VWon 08-99-8925ZW CHEST 1 VW NormalProMedica Lynn HospitalARTERIAL BLOOD GASon 25-59-8002POFDT'S TESTNormal [facility] Lynn HospitalComment on above:Performed By: #### ABG ####[facility] ([id number])[address] [place], [place] [address]PESL,DEFICIT5.0 MMOL/LHigh0.0-2.0Pro[facility] Lynn HospitalComment on above:Performed By: #### ABG ####[facility] ([id number])[address] [place] [address] Body rihuwogzkpm93.6 [degF]Ndyqvm04.0Pro[facility] Lynn HospitalComment on above: Performed By: #### ABG ####[facility] ([id number])[address] [place], [place] [address]OYR5 (Bld) [Moles/Vol]19.6 mmol/SLgt51-31VyuLiggzd Lynn HospitalComment on above:Performed By: #### ABG ####[facility] ([id number])[address] [place], [place] [address]TQPQ. O2 CONC.40 %NormalProMedica Lynn HospitalComment on above:Performed By: #### ABG ####[facility] ([id number])[address] [facility], [place] [address]Zdxttm (Bld) [Partial pressure]173 mm[Hg]Bjsv06-393UatHxblph Lynn HospitalComment on above:Performed By: #### ABG ####[facility] ([id number])[address] [facility]ITALCyndie [facility], [place] [address]Llptky saturation in [place]306.0 %Normal>90ProMedica Lynn HospitalComment on above:Performed By: #### ABG ####[facility] ([address] [place] [address] [facility], [place] [address]ZNFAZN SOURCEVentNormalProMedica Lynn HospitalComment on above:Performed By: #### ABG ####[facility] ([id number])[address] [facility]ITAL[facility] [place] [address]LAD[address].3 SKZDOgy96-43 [facility] Lynn HospitalComment on above:Performed By: #### ABG ####[facility] ([address] [place] [address] [facility], [place] [address]mL (Bld)7.378 [pH]Normal7.350-7.450ProMedica Lynn HospitalComment on above:Performed By: #### ABG ####[facility] ([address] [place] [address] [facility], [place] [address]EAPYWN SITEALineNormalProMedica Lynn HospitalComment on above:Performed By: #### ABG ####[facility] ([address] [place] [address] [facility], [place] [address]LEGJIP TYPEARTERIALNormalProMedica Lynn HospitalComment on above: Performed By: #### ABG ####[facility] ([id number])[address] [facility]ITAL[facility]yndie [facility], [place] [address]XLF AND AUTO DIFFon 54-40-8439XHKEEORE BASOPHIL0.0 X10E9/L Normal0.0-0.2ProMedica Lynn HospitalComment on above:Performed By: #### CBCRENA Alvarado, , 2776-04 ####[facility] ([id number])[address] [address], [address], [place] [address]HGLZCBFO NEUTROPHIL5.7 X10E9/LNormal1.5-6.6 ProMChillicothe VA Medical CenterComment on above:Performed By: #### CBCChristiano CMP, , 2776-04 ####[facility] ([id number])[address], [address], [place] [address]Gnbjoqadq/100 WBC (Bld)0.7 %[facility] Comment on above:Performed By: #### RENA BREAUX, , 2776-04 ####[facility] ([id number])[address] [address] Eosinophils (Bld) [#/Vol]0.0 10*3/uLNormal0.0-0.4[facility] Comment on above:Performed By: #### RENA BREAUX, , 2776-04 ####[facility] ([id number])[address] [address] [place] [address] Eosinophils/100 WBC (Bld)0.0 %NormalAultman Orrville HospitalComment on above: Performed By: #### CBCChristiano CMP, , 2776-04 ####[facility] ([id number])[address] [address] [place] [address]Ofbaxqxoapu distribution width (RBC) [Ratio]17.3 %High11.5-15.0[facility] HospitalComment on above: Performed By: #### CBCA, CMP, , 2776-04 ####[facility] ([id number])[address] [address], [place] [address]Hfcjjtqctt (Bld) [Volume fraction]25.2 %Mgf16-47YngEzvbph Lynn HospitalComment on above:Performed By: #### CBCChristiano, CMP, , 2776-04 ####[facility] ([id number])[address], [address], [place] [address]Eoevlliowf (Bld) [Mass/Vol] 8.5 g/dLLow11.7-15.5ProMedOhioHealth [facility] HospitalComment on above:Performed By: #### CBCA, CMP, , 2776-04 ####[facility] ([id number])[address], [address], [place] [address]Wgvkabunprt (Bld) [#/Vol]0.8 10*3/uLLow 1.0-3.5ProMedOhioHealth Riverside Methodist Hospital HospitalComment on above:Performed By: #### CBCA, CMP, , 2776-04 ####[facility] ([id number])[address], [address], [place] [address]Cgykxdmcfdx/100 WBC (Bld)11.1 %NormalProMedica Phoenix HospitalComment on above:Performed By: #### CBCA, CMP, , 2776-04 ####[facility] ([id number])[address], [address], [place] [address]VCU (RBC) [Entitic mass]32.0 yvEpspop23-98NrlNmbehv Lynn HospitalComment on above:Performed By: #### CBCA, CMP, , 2776-04 ####[facility] ([id number])[address], [address], [place] [address]SKCT (RBC) [Mass/Vol]33.7 g/oVCqulot92-92YpvXgsewn Lynn HospitalComment on above: Performed By: #### CBCA, CMP, , 2776-04 ####[facility] ([id number])[address], [address], [place] [address]UJB (RBC) [Entitic vol]95 lHPfqzur02-883ZddPnhffn Phoenix HospitalComment on above:Performed By: #### CBCA, CMP, , 2776-04 ####[facility] ([id number])[address], [address], [place] [address]Qwdnaxqxw (Bld) [#/Vol]0.3 10*3/uLNormal0-0.9 [facility] HospitalComment on above:Performed By: #### CBCA, CMP, , 2776-04 ####[facility] ([id number])[address], [address], [place] [address]Fmjfpdumj/100 WBC (Bld)4.8 %NormalProCincinnati Children'S Hospital Medical Centerca [facility] Comment on above:Performed By: #### CBCA, CMP, , 2776-04 ####[facility] ([id number])[address], [address], [place] [address] Neutrophils/100 WBC (Bld)83.4 %NormalProMedica Phoenix HospitalComment on above: Performed By: #### CBCA, CMP, , 2776-04 ####[facility] ([id number])[address], [address], [place] [address]Scslvzdy mean volume (Bld) [Entitic vol]7.2 fLNormal7-12ProMedica Lynn HospitalComment on above:Performed By: #### CBCA, CMP, , 2776-04 ####[facility] ([id number])[address], [address], [place] [address]Qellixtvr (Bld) [#/Vol]419 10*3/rAVnhlsx742-640IfrVqcnaf Lynn HospitalComment on above:Performed By: #### CBCA, CMP, , 2776-04 ####[facility] ([id number])[address], [address], [place] [address]YEO COUNT2.66 X10E12/LLow3.80-5.20ProMer[facility] HospitalComment on above:Performed By: #### RENA BREAUX, , 2776-04 ####[facility] ([id number])[address], [address], [place] [address]WWF (Bld) [#/Vol]6.8 10*3/uLNormal4.0-11.0ProMercy Health Clermont HospitalComment on above:Performed By: #### RENA BREAUX, , 2776-04 ####[facility] ([id number])[address], [address] [place] [address]CPJYFTPGMFJZO METABOLIC PANELon 20-46-3705Uabdidm [Mass/Vol]3.6 g/dLNormal3.2-5.3PSalem City Hospital HospitalComment on above:Performed By: #### RENA BREAUX, , 2776-04 ####[facility] ([id number])[address], [address], [place] [address]DWM [Catalytic activity/Vol]66 U/LOzxfit61-051SpdHoyxia [place] [facility] Comment on above:Performed By: #### RENA BREAUX, , 2776-04 ####[facility] ([id number])[address], [address], [place] [address]IAC [Catalytic activity/Vol]4 U/LNormal0-31PGuernsey Memorial HospitalComment on above:Performed By: #### RENA BREAUX, , 2776-04 ####[facility] ([id number])[address], [address], [place] [address]Wwlmn gap [Moles/Vol]18 mmol/LHigh5-15ProMedica [facility] HospitalComment on above:Performed By: #### RENA BREAUX, , 2776-04 ####[facility] ([id number])[address], [address], [place] [address]TON [Catalytic activity/Vol]9 U/LNormal0-41 [facility] HospitalComment on above:Performed By: #### RENA BREAUX, , 2776-04 ####[facility] ([id number])[address], [address], [place] [address]Jatbvrlrp [Mass/Vol]0.8 mg/dLNormal0.3-1.2ProMedOhioHealth Riverside Methodist Hospital HospitalComment on above:Performed By: #### RENA BREAUX, , 2776-04 ####[facility] ([id number])[address], [address], [place] [address]Cicyiaj [Mass/Vol]10.4 mg/dLNormal8.5-10.5ProMedOhioHealth Riverside Methodist Hospital HospitalComment on above:Performed By: #### RENA BREAUX, , 2776-04 ####[facility] ([id number])[address], [address], [place] [address]Ieqheaqx [Moles/Vol]96 mmol/YTxa26-783IjsIzskmw Lynn HospitalComment on above:Performed By: #### RENA BREAUX, , 2776-04 ####[facility] ([id number])[address], [address], [place] [address]OU6 [Moles/Vol]22 mmol/L Qwczhu88-65AoaJtouek [place] HospitalComment on above:Performed By: #### RENA BREAUX, , 2776-04 ####[facility] ([id number])[address], [address], [place] [address]Rcsdxynvos [Mass/Vol]2.94 mg/dLHigh0.40-1.00 [facility] HospitalComment on above:Result Comment: METHOD TRACEABLE TO IDMS STANDARDPerformed By: #### RENA BREAUX, , 2776-04 ####[facility] ([id number])[address] [address], [place] [address]PAW/1.73 sq M.predicted among non-blacks MDRD (S/P/Bld) [Vol rate/Area]18 mL/min/{1.73_m2} Low>59ProMedica [facility] HospitalComment on above:Result Comment: Reported eGFR is based on theCKD-EPI 2020 equation that doesnot use a race coefficient.Performed By: #### RENA BREAUX, , 2776-04 ####[facility] ([id number])[address] [address], [place] [address]Igkdiiv [Mass/Vol]125 mg/dL Gtvb03-51RycFunacv Phoenix HospitalComment on above:Performed By: #### RENA BREAUX, , 2776-04 ####[facility] ([id number])[address] [address], [place] [address]Kparfslvn [Moles/Vol]3.9 mmol/LNormal3.5-5.0ProCincinnati Children'S Hospital Medical Centerca Phoenix HospitalComment on above:Performed By: #### RENA BREAUX, , 2776-04 ####[facility] ([id number])[address] [address], [place] [address]Pkkxzik [Mass/Vol]7.0 g/dLNormal6.0-8.0[facility] HospitalComment on above:Performed By: #### RENA BREAUX, , 2776-04 ####[facility] ([id number])[address] [address], [place] [address]Dpqpll [Moles/Vol]136 mmol/MMedkej144-681EntBmfjbg Lynn HospitalComment on above: Performed By: #### RENA BREAUX, , 2776-1 ####[facility] ([id number])[address], [address], [place] [address]Dcea nitrogen [Mass/Vol]105 mg/dLHigh5-27Pro[facility] HospitalComment on above:Performed By: #### RENA BREAUX, , 2776-04 ####[facility] ([id number])[address], [address], [place] [address]RBHZSDTSQft 72-94-6581Ihpcilzty [Mass/Vol]2.3 mg/dLNormal1.8-2.6[facility] HospitalComment on above:Performed By: #### RENA BREAUX, , 2776-04 ####[facility] ([id number])[address], [address], [place] [address]DMUJMETHPLgl 45-19-2048Wmltergrp [Mass/Vol] 7.0 mg/dLHigh2.4-4.9[facility] HospitalComment on above:Performed By: #### RENA BREAUX, , 2776-1 ####[facility] ([id number])[address], [address], [place] [address]LO CHEST 1 VWon 66-93-0617VV CHEST 1 VW NormalProCincinnati Children'S Hospital Medical Centerca Phoenix HospitalARTERIAL BLOOD GASon 55-79-7421EYGZV'S TESTNormal [facility] HospitalComment on above:Performed By: #### ABG ####[facility] ([id number])[address] [place], [place] [address]MVRO,DEFICIT7.0 MMOL/LHigh0.0-2.0Pro[facility] HospitalComment on above:Performed By: #### ABG ####[facility] ([id number])[address] [place] [address] Body yhnfcimjkxd10.6 [degF]Aguyhy25.0ProMedica [facility] HospitalComment on above: Performed By: #### ABG ####[facility] ([id number])[address] BL[address] [place], [place] [address]FXG2 (Bld) [Moles/Vol]18.8 mmol/KNse31-85JswQqebcz Lynn HospitalComment on above:Performed By: #### ABG ####[facility] ([id number])[address] [facility] [place], [place] [address]SSHF. O2 CONC.40 %NormalProMedica Lynn HospitalComment on above:Performed By: #### ABG ####[facility] ([id number])[address] [address]VANT[facility], [place] [address]Brtvfq (Bld) [Partial pressure]115 mm[Hg]Bhrg59-283MdhNpibhm Lynn HospitalComment on above:Performed By: #### ABG ####[facility] ([address] [place] [address])[address] [facility] [place], [place] [address]Vgccrm saturation in Blood98.0 %Normal>90[facility] HospitalComment on above:Performed By: #### ABG ####[facility] ([id number])[address] [facility] [place], [place] [address]MWNYWI SOURCEVentNormalProMedica Lynn HospitalComment on above:Performed By: #### ABG ####[facility] ([id number])[address] [facility] [place], [place] [address]SFR300.3 FXEBNciitm54-07 [facility] HospitalComment on above:Performed By: #### ABG ####[facility] ([id number])[address], [place] [address]qO (Bld)7.288 [pH]Low7.350-7.450Pro[facility]ica [facility] HospitalComment on above:Performed By: #### ABG ####[facility] ([address] [place] [address])[address] [place] [address] SAMPLE SITEALineNormalProCincinnati Children'S Hospital Medical Centerca Phoenix HospitalComment on above:Performed By: #### ABG ####[facility] ([address] [place] [address])[address] [place], [place] [address]NDZLJS TYPEARTERIALNormalProMedica Phoenix HospitalComment on above: Performed By: #### ABG ####[facility] ([address] [place] [address])[address] [place], [place] [address]HIERL'S TESTNormalProCincinnati Children'S Hospital Medical Centerca Phoenix HospitalComment on above: Performed By: #### ABG ####[facility] ([address] [place] [address])[address] [place], [place] [address]HANZ,DEFICIT6.0 MMOL/LHigh0.0-2.0ProCincinnati Children'S Hospital Medical Centerca [facility] Comment on above:Performed By: #### ABG ####[facility] ([address] [place] [address])[address] [place], [place] [address]Xhqt ujjyzfqrfxb29.6 [degF]Normal 37.0ProCincinnati Children'S Hospital Medical Centerca Phoenix HospitalComment on above:Performed By: #### ABG ####[facility] ([address] [place] [address])[address] [place], [place] [address]NJX5 (Bld) [Moles/Vol]20.7 mmol/EKmc06-25XfbTjjtho Phoenix HospitalComment on above: Performed By: #### ABG ####[facility] ([address] [place] [address])[address] [place], [place] [address]QHRI. O2 CONC.40 %NormalProMedica Phoenix HospitalComment on above:Performed By: #### ABG ####[facility] ([address] [place] [address])[address] [place], [place] [address]Ujgkdc (Bld) [Partial pressure]94 mm[Hg]Sazqmc40-788 ProMhale county hospitala Phoenix HospitalComment on above:Performed By: #### ABG ####[facility] ([address] [place] [address])[address] [place], [place] [address]Jzjcez saturation in Blood96.0 %Normal>90[facility] HospitalComment on above: Performed By: #### ABG ####[facility] ([address] [place] [address])[address] [place], [place] [address]JRXKHY SOURCEVentNormalProMedica Phoenix HospitalComment on above:Performed By: #### ABG ####[facility] ([address] [place] [address])[address] [place], [place] [address]JFB556.7 XCLCJjcoht46-36NuwTkuxlm [facility] Comment on above:Performed By: #### ABG ####[facility] ([address] [place] [address])[address] [place], [place] [address]rC (Bld)7.275 [pH]Low7.350-7.[address] [facility] HospitalComment on above:Performed By: #### ABG ####[facility] ([address] [place] [address])[address] [place], [place] [address]GIJLHF SITE ALineNormalProMedica Phoenix HospitalComment on above:Performed By: #### ABG ####[facility] ([address] [place] [address])[address] [place] [address] SAMPLE TYPEARTERIALNormalProMedica Phoenix HospitalComment on above:Performed By: #### ABG ####[facility] ([address] [place] [address])[address] [place], [place] [address]OQG AND AUTO DIFFon 78-72-2850MLQYNCJM BASOPHIL0.0 X10E9/LNormal0.0-0.2 ProMhale county hospitala Phoenix HospitalComment on above:Performed By: #### CBCA, CMP, , 2776-04 ####[facility] ([id number])[address], [address], [place] [address]FBKMQRUJ NEUTROPHIL8.3 X10E9/LHigh1.5-6.6ProMer[facility] HospitalComment on above:Performed By: #### CBCChristiano, CMP, , 2776-04 ####[facility] ([id number])[address], [address], [place] [address]Sglmmimbd/100 WBC (Bld)0.4 %NormalProMercy Health [facility] Hospital HospitalComment on above:Performed By: #### RENA BREAUX, , 2776-04 ####[facility] ([id number])[address], [address] [place] [address]Dgponyhcpfu (Bld) [#/Vol]0.0 10*3/uLNormal0.0-0.4ProMer[facility] Health [facility] HospitalComment on above: Performed By: #### RENA BREAUX, , 2776-04 ####[facility] ([id number])[address], [address], [place] [address]Aibgxhelmlp/100 WBC (Bld) 0.3 %NormalProMercy Health [facility] HospitalComment on above:Performed By: #### CBCRENA Alvarado, , 2776-04 ####[facility] ([id number])[address], [address], [place] [address]Fdcbrnxfham distribution width (RBC) [Ratio]17.9 %High11.5-15.0ProMercy Health [facility] HospitalComment on above:Performed By: #### CBCA, CMP, , 2776-04 ####[facility] ([id number])[address], [address], [place] [address]Srcblnxyny (Bld) [Volume fraction]25.6 %Low 35-47[facility] HospitalComment on above:Performed By: #### CBCChristiano, CMP, , 2776-04 ####[facility] ([id number])[address], [address], [place] [address]Whsqjtjodi (Bld) [Mass/Vol]8.4 g/dLLow11.7-15.5 [facility] HospitalComment on above:Performed By: #### CBCA, CMP, , 2776-04 ####[facility] ([id number])[address], [address], [place] [address]Dmeoozzvpha (Bld) [#/Vol]0.4 10*3/uLLow1.0-3.5[facility] HospitalComment on above:Performed By: #### CBCChristiano, CMP, , 2776-04 ####[facility] ([id number])[address], [address], [place] [address]Upbdmwbbjdg/100 WBC (Bld)4.6 %NormalProMedica Lynn HospitalComment on above:Performed By: #### CBCChristiano, CMP, , 2776-04 ####[facility] ([id number])[address], [address], [place] [address]HYU (RBC) [Entitic mass]31.2 gnAdhwws41-70HrrGdjnbb Lynn HospitalComment on above:Performed By: #### CBCA, CMP, , 2776-04 ####[facility] ([id number])[address], [address], [place] [address]YAXB (RBC) [Mass/Vol]32.7 g/eMTncwrl47-89HdmTplpdy Lynn HospitalComment on above:Performed By: #### CBCA, CMP, , 2776-04 ####[facility] ([id number])[address], [address], [place] [address]WLM (RBC) [Entitic vol]95 gYHrrowk86-700 [facility] HospitalComment on above:Performed By: #### CBCA, CMP, , 2776-04 ####[facility] ([id number])[address], [address], [place] [address]Ovzhhqsgg (Bld) [#/Vol]0.2 10*3/uLNormal0-0.9[facility] HospitalComment on above:Performed By: #### CBCA, CMP, , 2776-04 ####[facility] ([id number])[address], [address], [place] [address]Pjwnxeuiz/100 WBC (Bld)2.2 %NormalProMedica Lynn HospitalComment on above:Performed By: #### CBCA, CMP, , 2776-04 ####[facility] ([id number])[address], [address], [place] [address]Maznqelxycm/100 WBC (Bld)92.5 %NormalProMedica Lynn HospitalComment on above:Performed By: #### CBCA, CMP, , 2776-04 ####[facility] ([id number])[address], [address] [place] [address]Egcaqccz mean volume (Bld) [Entitic vol]7.2 fLNormal7-12[facility] HospitalComment on above:Performed By: #### CBCA, CMP, , 2776-04 ####[facility] ([id number])[address], [address], [place] [address]Sctrohyvq (Bld) [#/Vol]329 10*3/bJGixoog359-512 [facility] HospitalComment on above:Performed By: #### CBCA, CMP, , 2776-04 ####[facility] ([id number])[address], [address], [place] [address]HHW COUNT2.69 X10E12/LLow3.80-5.20[facility] Comment on above:Performed By: #### RENA BREAUX, , 2776-04 ####[facility] ([id number])[address], [address], [place] [address]PMC (Bld) [#/Vol]9.0 10*3/uLNormal4.0-11.0ProMercy Health [facility]ermont HospitalComment on above: Performed By: #### RENA BREAUX, , 2776-04 ####[facility] ([id number])[address] [address], [place] [address]UNHPRVLVJWFHI METABOLIC PANELon 48-15-0060Bxrlkaj [Mass/Vol]3.6 g/dLNormal3.2-5.3PGuernsey Memorial HospitalComment on above:Performed By: #### RENA BREAUX, , 2776-04 ####[facility] ([id number])[address] [address], [place] [address]YBI [Catalytic activity/Vol]65 U/EUkhidh35-624OgxApzogfAultman Orrville Hospital Comment on above:Performed By: #### RENA BREAUX, , 2776-04 ####[facility] ([id number])[address], [place] [address]CWE [Catalytic activity/Vol]6 U/LNormal0-31PGuernsey Memorial HospitalComment on above:Performed By: #### NAMITA CMP, , 2776-04 ####[facility] ([id number])[address], [place] [address]Dbobc gap [Moles/Vol]15 mmol/LNormal5-15[facility] HospitalComment on above:Performed By: #### RENA BREAUX, , 2776-04 ####[facility] ([id number])[address], [address], [place] [address]PBE [Catalytic activity/Vol]10 U/LNormal0-41 [facility] HospitalComment on above:Performed By: #### RENA BREAUX, , 2776-04 ####[facility] ([id number])[address], [place] [address]Gfirmoako [Mass/Vol]0.9 mg/dLNormal0.3-1.2[facility] HospitalComment on above:Performed By: #### RENA BREAUX, , 2776-04 ####[facility] ([id number])[address], [place] [address]Srewsdu [Mass/Vol]10.0 mg/dLNormal8.5-10.5[facility] HospitalComment on above:Performed By: #### RENA BREAUX, , 2776-04 ####[facility] ([id number])[address], [address], [place] [address]Hsjqsxcb [Moles/Vol]98 mmol/ICneraw98-805GsnOligap Lynn HospitalComment on above: Performed By: #### RENA BREAUX, , 2776-04 ####[facility] ([id number])[address], [address], [place] [address]EW9 [Moles/Vol]20 mmol/LLow 22-32[facility] HospitalComment on above:Performed By: #### RENA BREAUX, , 2776-04 ####[facility] ([id number])[address], [address], [place] [address]Jbandahjeu [Mass/Vol]2.61 mg/dLHigh0.40-1.00[facility] HospitalComment on above:Result Comment: METHOD TRACEABLE TO IDMS STANDARDPerformed By: #### RENA BREAUX, , 2776-04 ####[facility] ([id number])[address] [address], [place] [address]SKY/1.73 sq M.predicted among non-blacks MDRD (S/P/Bld) [Vol rate/Area]20 mL/min/{1.73_m2} Low>59[facility] HospitalComment on above:Result Comment: Reported eGFR is based on theCKD-EPI 2020 equation that doesnot use a race coefficient.Performed By: #### RENA BREAUX, , 2776-04 ####[facility] ([id number])[address] [address], [place] [address]Ngsruma [Mass/Vol]140 mg/dL Hiig04-87WcdLqhevo Lynn HospitalComment on above:Performed By: #### RENA BREAUX, , 2776-04 ####[facility] ([id number])[address] [address]Qalarmtui [Moles/Vol]4.3 mmol/LNormal3.5-5.0Pro[facility] Medical Centerca [place] HospitalComment on above:Performed By: #### RENA BREAUX, , 2776-04 ####[facility] ([id number])[address] [address], [place] [address]Vwystpd [Mass/Vol]6.7 g/dLNormal6.0-8.0[facility] HospitalComment on above:Performed By: #### RENA BREAUX, , 2776-04 ####[facility] ([id number])[address] [address], [place] [address]Mqxkgo [Moles/Vol]133 mmol/IDqd844-248RtgRmpzoz [place] HospitalComment on above: Performed By: #### RENA BREAUX, , 2776-04 ####[facility] ([id number])[address], [address] [place] [address]Btyc nitrogen [Mass/Vol]95 mg/dLHigh5-27Pro[facility] HospitalComment on above:Performed By: #### RENA BREAUX, , 2776-04 ####[facility] ([id number])[address], [address] [place] [address]Nnqvzmc.ionized (Bld) [Mass/Vol]on 06-24-2024 IONIZED CALCIUM5.3 mg/dLNormal4.5-5.3[facility] HospitalComment on above: Performed By: #### 29529-3, 65790-8 ####[facility] ([id number])[address] [address]XLTMPTDRTlr 06-24-2024 Magnesium [Mass/Vol]2.2 mg/dLNormal1.8-2.6Pro[facility] HospitalComment on above:Performed By: #### RENA BREAUX, , 27710-08 ####[facility] ([id number])[address] [address]Lhqngnevw Ionized ISE (Bld) [Moles/Vol]on 58-36-5720Djlwyhhmu [Moles/Vol]0.55 mmol/LNormal0.45-0.74 [facility] HospitalComment on above:Result Comment: NEW REFERENCE RANGE Performed By: #### 38403-3, 08325-8 ####[facility] ([id number])[address] [id number] 06-24-2024 Phosphate [Mass/Vol]6.2 mg/dLHigh2.4-4.9ProMercy Health Clermont HospitalComment on above:Performed By: #### CBCA, CMP, , 2776-04 ####[facility] ([id number])[address], [address], [place] [address]IX CHEST 1 VWon 60-12-4564PE CHEST 1 VWNormalProMedica Pomerene HospitalXR CHEST 1 VWNormal [facility]icUC Medical CenterCBC AND AUTO DIFFon 23-76-5590DCAUDCAB BASOPHIL0.1 X10E9/LNormal0.0-0.2ProMedica Pomerene HospitalComment on above:Performed By: #### CBCA, CMP, , 2776-04 ####[facility] ([id number])[address], [address] [place] [address] 13566JKMLRHFR NEUTROPHIL7.0 X10E9/LHigh1.5-6.6 [facility] HospitalComment on above:Performed By: #### CBCA, CMP, , 2776-04 ####[facility] ([id number])[address], [address] [place] [address] 61439Jnrsqvexx/100 WBC (Bld)1.0 %NormalAultman Orrville Hospital Comment on above:Performed By: #### CBCA, CMP, , 2776-04 ####[facility] ([id number])[address], [address] [place] [address] 17208 Eosinophils (Bld) [#/Vol]0.3 10*3/uLNormal0.0-0.4[facility] Comment on above:Performed By: #### CBCA, CMP, , 2776-04 ####[facility] ([id number])[address], [address] [place] [address] 27658 Eosinophils/100 WBC (Bld)2.7 %NormalProMedica Lynn HospitalComment on above: Performed By: #### CBCA, CMP, , 2776-04 ####[facility] ([id number])[address], [address], [place] [address]Niyiyahpggj distribution width (RBC) [Ratio]18.6 %High11.5-15.0ProCincinnati Children'S Hospital Medical Centerca Phoenix HospitalComment on above: Performed By: #### CBCA, CMP, , 2776-04 ####[facility] ([id number])[address], [address], [place] [address]Xzhijavzwe (Bld) [Volume fraction]23.7 %Uzc37-89YrhHdvaor Phoenix HospitalComment on above:Performed By: #### CBCA, CMP, , 2776-04 ####[facility] ([id number])[address] [address], [place] [address]Cmhlcoiksk (Bld) [Mass/Vol] 7.8 g/dLLow11.7-15.5ProMedica [facility] HospitalComment on above:Performed By: #### CBCA, CMP, , 2776-04 ####[facility] ([id number])[address] [address], [place] [address]Fisjirolifp (Bld) [#/Vol]1.2 10*3/uLNormal 1.0-3.5ProMedOhioHealth [facility] HospitalComment on above:Performed By: #### CBCA, CMP, , 2776-04 ####[facility] ([id number])[address] [address], [place] [address]Ljvbrnmbxgs/100 WBC (Bld)12.1 %NormalProMercy Health [facility] Hospital HospitalComment on above:Performed By: #### CBCA, CMP, , 2776-04 ####[facility] ([id number])[address], [address] [place] [address]23[address]OAM (RBC) [Entitic mass]31.9 rqFldpml39-62GitTuxxoi Lynn HospitalComment on above:Performed By: #### CBCA, CMP, , 2776-04 ####[facility] ([id number])[address], [address] [place] [address] 31990ONIL (RBC) [Mass/Vol]33.1 g/mWDsbhtr74-92TxyOkxrxz Lynn HospitalComment on above: Performed By: #### CBCA, CMP, , 2776-04 ####[facility] ([id number])[address], [address] [place] [address] 24459ELP (RBC) [Entitic vol]96 wPSpglhe84-860UhtBfmiqp Lynn HospitalComment on above:Performed By: #### CBCA, CMP, , 2776-04 ####[facility] ([id number])[address], [address] [place] [address] 24236Hrvycqspg (Bld) [#/Vol]1.4 10*3/uLHigh0-0.9 [facility] HospitalComment on above:Performed By: #### CBCA, CMP, , 2776-04 ####[facility] ([id number])[address], [address] [place] [address] 80948Iycogfcic/100 WBC (Bld)13.9 %NormalProMedica Lynn Hospital Comment on above:Performed By: #### CBCA, CMP, , 2776-04 ####[facility] ([id number])[address], [address] [place] [address] 86170 Neutrophils/100 WBC (Bld)70.3 %NormalProMedica Lynn HospitalComment on above: Performed By: #### CBCA, CMP, , 2776-04 ####[facility] ([id number])[address], [address] [place] [address] 66257Fwrlnfrx mean volume (Bld) [Entitic vol]7.5 fLNormal7-12ProMedOhioHealth Riverside Methodist Hospital HospitalComment on above:Performed By: #### NAMITA CMP, , 2776-04 ####[facility] ([id number])[address], [address] [place] [address]Kiwzaimyc (Bld) [#/Vol]244 10*3/oVZcmsnr398-033FqmEmdpgs [place] HospitalComment on above:Performed By: #### RENA BREAUX, , 2776-04 ####[facility] ([id number])[address], [address] [place] [address] 67526JME COUNT2.46 X10E12/LLow3.80-5.20ProMer[facility] HospitalComment on above:Performed By: #### RENA BREAUX, , 2776-04 ####[facility] ([id number])[address], [address] [place] [address] 67706IMI (Bld) [#/Vol]10.0 10*3/uLNormal4.0-11.0ProMer[facility] Hospital Comment on above:Performed By: #### RENA BREAUX, , 2776-04 ####[facility] ([id number])[address], [address] [place] [address] 95189 COMPREHENSIVE METABOLIC PANELon 78-85-3345Hzbaswi [Mass/Vol]3.6 g/dLNormal 3.2-5.3PSalem City Hospital HospitalComment on above:Performed By: #### NAMITA, CMP, , 2776-04 ####[facility] ([id number])[address], [address] [place] [address] 26422ILY [Catalytic activity/Vol]68 U/BVvvhpo94-746QhoLzfhym Lynn HospitalComment on above:Performed By: #### RENA BREAUX, , 2776-04 ####[facility] ([id number])[address], [address], [place] [address]NEV [Catalytic activity/Vol]4 U/LNormal0-31Pro[facility] HospitalComment on above:Performed By: #### NAMITA CMP, , 2776-04 ####[facility] ([id number])[address], [address], [place] [address]Luskr gap [Moles/Vol]13 mmol/LNormal5-15[facility] HospitalComment on above: Performed By: #### NAMITA CMP, , 2776-04 ####[facility] ([id number])[address], [address], [place] [address]RHV [Catalytic activity/Vol]12 U/LNormal0-41[facility] HospitalComment on above:Performed By: #### RENA BREAUX, , 2776-04 ####[facility] ([id number])[address], [address], [place] [address]Bhqardsvs [Mass/Vol]0.8 mg/dLNormal0.3-1.2[facility] HospitalComment on above:Performed By: #### NAMITA CMP, , 2776-04 ####[facility] ([id number])[address], [address], [place] [address]Xbidsuv [Mass/Vol]9.7 mg/dLNormal8.5-10.5 [facility] HospitalComment on above:Performed By: #### NAMITA, CMP, , 2776-04 ####[facility] ([id number])[address], [address], [place] [address]Syxmyqcj [Moles/Vol]101 mmol/ONisktc21-639EdiHkglxm Lynn HospitalComment on above:Performed By: #### RENA BREAUX, , 2776-04 ####[facility] ([id number])[address], [address], [place] [address]RF2 [Moles/Vol]21 mmol/NBjf42-24EysZjwrjr Lynn HospitalComment on above: Performed By: #### RENA BREAUX, , 2776-04 ####[facility] ([id number])[address], [address], [place] [address]Jntjaplinj [Mass/Vol]2.08 mg/dLHigh0.40-1.00ProC[facility] Medical Centerca Phoenix HospitalComment on above:Result Comment: METHOD TRACEABLE TO IDMS STANDARDPerformed By: #### RENA BREAUX, , 2776-04 ####[facility] ([id number])[address], [address], [place] [address]LRM/1.73 sq M.predicted among non-blacks MDRD (S/P/Bld) [Vol rate/Area]27 mL/min/{1.73_m2}Low>59ProMed[facility] HospitalComment on above:Result Comment: Reported eGFR is based on theCKD-EPI 2020 equation that doesnot use a race coefficient.Performed By: #### RENA BREAUX, , 2776-04 ####[facility] ([id number])[address], [address], [place] [address]Cbnejhc [Mass/Vol]103 mg/pVAuxa40-15XppBklqsm Lynn HospitalComment on above:Performed By: #### RENA BREAUX, , 2776-04 ####[facility] ([id number])[address], [address], [place] [address]Cgndvnuky [Moles/Vol]4.3 mmol/LNormal3.5-5.0Pro[facility] HospitalComment on above:Performed By: #### [facility]ITA [facility], , 2776-04 ####[facility] ([id number])[address], [address] [place] [address]Okvmodc [Mass/Vol]6.5 g/dLNormal6.0-8.0 [facility] HospitalComment on above:Performed By: #### [facility], , 2776-04 ####[facility] ([id number])[address], [address], [place] [address]Oypklh [Moles/Vol]135 mmol/AKsdaqk125-671YooPkrsix Lynn HospitalComment on above:Performed By: #### [facility], , 2776-04 ####[facility] ([id number])[address], [address], [place] [address]Veuy nitrogen [Mass/Vol]73 mg/dLHigh5-27[facility] [place] HospitalComment on above:Performed By: #### RENA BREAUX, , 2776-04 ####[facility] ([id number])[address], [address] [place] [address]AZHhd 06-23-2024 Hematocrit (Bld) [Volume fraction]23.2 %Aab54-27AwsLgoqsq Phoenix HospitalComment on above:Performed By: #### HH ####[facility] ([id number])[address], [address] [address]Lecgksarym (Bld) [Mass/Vol]7.7 g/dLLow 11.7-15.5[facility] HospitalComment on above:Performed By: #### HH ####[facility] ([id number])[address], [address] [address]Gsdaabzwti (Bld) [Volume fraction]23.3 %Fqw64-26HzoRrzaun [facility] Comment on above:Performed By: #### HH ####[facility] ([id number])[address], [address] [place] [address]Dtgsmszdzf (Bld) [Mass/Vol] 7.6 g/dLLow11.7-15.5[facility] [place] HospitalComment on above:Performed By: #### HH ####[facility] ([id number])[address], [address] [place] [address]PGWNLFRQIyd 81-90-1631Najurcouu [Mass/Vol]2.2 mg/dLNormal 1.8-2.6ProCinc[facility] Medical Centerca Phoenix HospitalComment on above:Performed By: #### NAMITA, CMP, 76943-1, 2777-1 ####[facility] ([id number])[address], [address] [place] [address]GELCVEBJUTbx 17-47-7542Ingpuyvfr [Mass/Vol]5.1 mg/dL High2.4-4.9[facility] [place] HospitalComment on above:Performed By: #### CBCChristiano, CMP, , 2777-1 ####[facility] ([id number])[address], [place] [address]NM CHEST 1 VWon 89-16-0336TL CHEST 1 VWNormal ProMTriHealth [facility] HospitalARTERIAL BLOOD GASon 38-82-9849SAMCK'S TESTNormal [facility] HospitalComment on above:Performed By: #### ABG ####[facility] ([id number])[address] [place], [place] [address]SYGT,DEFICIT5.0 MMOL/LHigh0.0-2.0[facility] HospitalComment on above:Performed By: #### ABG ####[facility] ([id number])[address] [place] [address] Body bpofwoaehds98.6 [degF]Tgsmhz70.0ProMed[facility] HospitalComment on above: Performed By: #### ABG ####[facility] ([id number])[address] [place], [place] [address]UDD5 (Bld) [Moles/Vol]21.3 mmol/MKia96-93NziNzxkza Lynn HospitalComment on above:Performed By: #### ABG ####[facility] ([address] [place] [address])[address] [place], [place] [address]WRPH. O2 CONC.40 %NormalProMedica Lynn HospitalComment on above:Performed By: #### ABG ####[facility] ([address] [place] [address])[address] [place], [place] [address]Ovacqt (Bld) [Partial pressure]160 mm[Hg]Msfz09-252JamEdtsfo Lynn HospitalComment on above:Performed By: #### ABG ####[facility] ([address] [place] [address])[address] [place], [place] [address]Zqyxkl saturation in Blood99.0 %Normal>90ProMedica [facility] HospitalComment on above:Performed By: #### ABG ####[facility] ([address] [place] [address])[address] [place], [place] [address]DECWAR SOURCEVentNormalProMedica Lynn HospitalComment on above:Performed By: #### ABG ####[facility] ([address] [place] [address])[address] [place], [place] [address]PKC721.8 IDMHKahxpo60-66 [facility] HospitalComment on above:Performed By: #### ABG ####[facility] ([address] [place] [address])[address] [place], [place] [address]kY (Bld)7.286 [pH]Low7.350-7.450Pro[facility] HospitalComment on above:Performed By: #### ABG ####[facility] ([id number])[address] [place] [address] SAMPLE SITEALineNormalProCincinnati Children'S Hospital Medical Centerca Phoenix HospitalComment on above:Performed By: #### ABG ####[facility] ([id number])[address] [place], [place] [address]DPKKOS TYPEARTERIALNormalProMercy Health [facility] Hospital HospitalComment on above: Performed By: #### ABG ####[facility] ([id number])[address] [place], [place] [address]FMB AND AUTO DIFFon 10-47-6688MJALULBE BASOPHIL0.1 X10E9/L Normal0.0-0.2[facility] HospitalComment on above:Performed By: #### CBCA ####[facility] ([id number])0 [facility], [address] [place] [address]PYJINGGP NEUTROPHIL6.5 X10E9/LNormal1.5-6.6[facility] Comment on above:Performed By: #### CBCA ####[facility] ([id number])0 [facility] [address] [place] [address]Imhvfwunl/100 WBC (Bld)1.3 %NormalAultman Orrville HospitalComment on above:Performed By: #### CBCA ####[facility] ([id number])[address] [address] [place] [address]Tsvcoxdknqu (Bld) [#/Vol]0.3 10*3/uLNormal0.0-0.4[facility] Comment on above:Performed By: #### CBCA ####[facility] ([id number])[address] [address] [place] [address]Bxgnupamuxk/100 WBC (Bld) 2.9 %NormalMercy Health St. [facility] HospitalComment on above:Performed By: #### CBCA ####[facility] ([id number])[address], [address], [place] [address]Dnlwripbipw distribution width (RBC) [Ratio]18.8 %High11.5-15.0ProMer[facility] Health [facility] HospitalComment on above:Performed By: #### CBCA ####[facility] ([id number])[address], [address], [place] [address]Emrhagagma (Bld) [Volume fraction]24.8 %Mmb91-34FisResfih [place] HospitalComment on above: Performed By: #### CBCA ####[facility] ([id number])[address] [address], [place] [address]Vqulhjiwno (Bld) [Mass/Vol]8.2 g/dLLow 11.7-15.5PSalem City Hospital HospitalComment on above:Performed By: #### CBCA ####[facility] ([id number])[address] [address] [place] [address]Tmfcorgbnpc (Bld) [#/Vol]1.5 10*3/uLNormal1.0-3.5PGu[facility]sey [facility] Comment on above:Performed By: #### CBCA ####[facility] ([id number])[address] [address], [place] [address]Meqruvlopnm/100 WBC (Bld) 16.4 %NormalProMercy Health [facility] Hospital HospitalComment on above:Performed By: #### CBCA ####[facility] ([id number])[address] [address], [place] [address]AQQ (RBC) [Entitic mass]31.9 blGcvutt82-83ZyaDfkocq [place] HospitalComment on above:Performed By: #### CBCA ####[facility] ([id number])[address], [address], [place] [address]XYLP (RBC) [Mass/Vol]33.0 g/qTOlqeuj33-11FatFnfjet Lynn HospitalComment on above:Performed By: #### CBCA ####[facility] ([id number])[address], [address], [place] [address]ZUA (RBC) [Entitic vol]97 jAZahcml33-722JsfPqebpx Lynn HospitalComment on above:Performed By: #### CBCA ####[facility] ([id number])[address], [address], [place] [address]Dmllngycn (Bld) [#/Vol]1.0 10*3/uLHigh0-0.9[facility] HospitalComment on above:Performed By: #### CBCA ####[facility] ([id number])[address], [address], [place] [address]Gawjfvmfv/100 WBC (Bld)10.3 %NormalProMedica [facility] Hospital Comment on above:Performed By: #### CBCA ####[facility] ([id number])[address], [address], [place] [address]Jpdhssmjzmf/100 WBC (Bld) 69.1 %NormalProMedica Lynn HospitalComment on above:Performed By: #### CBCA ####[facility] ([id number])[address], [address] [place] [address]Nhiqcbfm mean volume (Bld) [Entitic vol]7.4 fLNormal7-12[facility] HospitalComment on above:Performed By: #### CBCA ####[facility] ([id number])[address], [address], [place] [address]Ndftdpaob (Bld) [#/Vol] 164 10*3/jKQzjlsw002-881JokCcykcw Lynn HospitalComment on above:Performed By: #### CBCA ####[facility] ([id number])[address], [address] [place] [address]MIX COUNT2.57 X10E12/LLow3.80-5.20ProC[facility] Medical Centerca [facility] Comment on above:Performed By: #### CBCA ####[facility] ([id number])[address], [address] [place] [address]GBV (Bld) [#/Vol]9.4 10*3/uLNormal4.0-11.0Pro[facility] HospitalComment on above:Performed By: #### CBCA ####[facility] ([id number])[address], [address] [place] [address]KXQMSZUSNCJRW METABOLIC PANELon 83-94-9326Hzldwlm [Mass/Vol] 3.8 g/dLNormal3.2-5.3[facility] HospitalComment on above:Performed By: #### RENA, , 2777-1 ####[facility] ([id number])[address], [place] [address]PKC [Catalytic activity/Vol]76 U/LNormal 39-130Pro[facility]ica [facility] HospitalComment on above:Performed By: #### CMP, , 2776- ####[facility] ([id number])[address], [address], [place] [address]OBX [Catalytic activity/Vol]4 U/LNormal0-31[facility] HospitalComment on above:Performed By: #### CMP, , 7- ####[facility] ([id number])[address], [place] [address]Qyhmk gap [Moles/Vol]13 mmol/LNormal5-15ProC[facility] Medical Centerca [facility] HospitalComment on above: Performed By: #### CMP, , 2777-1 ####[facility] ([id number])[address], [address], [place] [address]NYN [Catalytic activity/Vol]17 U/LNormal0-41ProCinc[facility] Children[facility] Hospital Medical Centerca [facility] HospitalComment on above:Performed By: #### RENA, , 2776-04 ####[facility] ([id number])[address], [address], [place] [address]Wazepldfp [Mass/Vol]0.9 mg/dLNormal0.3-1.2 [facility] HospitalComment on above:Performed By: #### RENA, , ####[facility] ([id number])[address], [address], [place] [address]Dygiopx [Mass/Vol]9.4 mg/dLNormal8.5-10.5PGu[facility]sey [facility] Comment on above:Performed By: #### RENA, , 2776-04 ####[facility] ([id number])[address], [address], [place] [address]Joonfcrs [Moles/Vol]101 mmol/TYjrpjm06-508PvtChqbyu [facility] HospitalComment on above: Performed By: #### RENA, , 2776-04 ####[facility] ([id number])[address], [place] [address]CC6 [Moles/Vol]21 mmol/LLow 22-32PSalem City Hospital HospitalComment on above:Performed By: #### RENA, , 2776-04 ####[facility] ([id number])[address], [place] [address]Mxqxhyygbr [Mass/Vol]1.48 mg/dLHigh0.40-1.00ProPrattville [facility] Hospital Lynn HospitalComment on above:Result Comment: METHOD TRACEABLE TO IDMS STANDARD Performed By: #### RENA, , 2776-04 ####[facility] ([id number])[address], [place] [address]XDW/1.73 sq M.predicted among non-blacks MDRD (S/P/Bld) [Vol rate/Area]40 mL/min/{1.73_m2}Low>59 [facility] HospitalComment on above:Result Comment: Reported eGFR is based on theCKD-EPI 2020 equation that doesnot use a race coefficient.Performed By: #### RENA, , 2776-04 ####[facility] ([id number])[address] [address], [place] [address]Gxpgxoe [Mass/Vol]127 mg/hYYrrz97-60 [facility] HospitalComment on above:Performed By: #### RENA, , ####[facility] ([id number])[address] [address], [place] [address]Rrchphpio [Moles/Vol]3.8 mmol/LNormal3.5-5.0[facility] Comment on above:Performed By: #### RENA, , 2776-04 ####[facility] ([id number])[address] [address], [place] [address]Bdlnjku [Mass/Vol]6.5 g/dLNormal6.0-8.0ProMer[facility]ermont HospitalComment on above: Performed By: #### RENA, , 2776-04 ####[facility] ([id number])[address] [address], [place] [address]Xbfsea [Moles/Vol]135 mmol/BNlhwkr839-814PnbSjnjzx [place] HospitalComment on above:Performed By: #### RENA, , 2776-04 ####[facility] ([id number])[address] [address] [place] [address]Niyp nitrogen [Mass/Vol]40 mg/dLHigh5-[address] [facility] HospitalComment on above:Performed By: #### [facility], [address]-6, 2777- 1 ####[facility] ([id number])[address], [place] [address]MMSzq 82-92-1053Xweasqjrru (Bld) [Volume fraction]24.4 %Ind06-42 [facility] HospitalComment on above:Performed By: #### HH ####[facility] ([id number])[address] [address] Hemoglobin (Bld) [Mass/Vol]8.1 g/dLLow11.7-15.5[facility] HospitalComment on above:Performed By: #### HH ####[facility] ([id number])[address] [address]Iudsvwhmpc (Bld) [Volume fraction]23.6 %Low 35-47[facility] HospitalComment on above:Performed By: #### HH ####[facility] ([id number])[address] [address] Hemoglobin (Bld) [Mass/Vol]7.8 g/dLLow11.7-15.5[facility] HospitalComment on above:Performed By: #### HH ####[facility] ([id number])[address] [address]Yzujnhndzt (Bld) [Volume fraction]20.6 %Low 35-47[facility] HospitalComment on above:Performed By: #### HH ####[facility] ([id number])[address] [address] Hemoglobin (Bld) [Mass/Vol]6.7 g/dLCritically low11.7-15.5[facility] HospitalComment on above:Performed By: #### HH ####[facility] ([id number])[address] [address]ZCMEVYXAXrn 06-22-2024 Magnesium [Mass/Vol]1.8 mg/dLNormal1.8-2.6[facility] HospitalComment on above:Performed By: #### CMP, 15031-2, 2777-1 ####[facility] ([id number])[address], [place] [address]Jnmeopemw Ionized ISE (Bld) [Moles/Vol]on 61-98-7037Wrxkvvaww [Moles/Vol]0.64 mmol/LNormal0.45-0.74 [facility] HospitalComment on above:Result Comment: NEW REFERENCE RANGE Performed By: #### 59992-6 ####[facility] ([id number])[address] [facility], [address] [place] [address]HMUWCJZDDPkm 78-47-8499Bzlxizqzj [Mass/Vol] 3.4 mg/dLNormal2.4-4.9Pro[facility] Centerca [facility] HospitalComment on above:Performed By: #### CMP, 76485-8, 2777-1 ####[facility] ([id number])[address] [place] [address]CVZNHDOSSsj 35-77-6188Fysfxwwnh [Moles/Vol] 4.0 mmol/LNormal3.5-5.0Pro[facility] Centerca [place] HospitalComment on above:Performed By: #### 2823-3 ####[facility] ([id number])0 [address], [place] [address]YG CHEST 1 VWon 29-05-0408DH CHEST 1 VWNormalProMedica Phoenix HospitalARTERIAL BLOOD GASon 15-14-2132URORF'S TESTNormalProMedica Phoenix HospitalComment on above:Performed By: #### ABG ####[facility] ([id number])[address]T[facility], [place] [address]GIQW,EWIYUKD55.0 MMOL/LHigh0.0-2.0 [facility] Lynn HospitalComment on above:Performed By: #### ABG ####[facility] ([id number])[address], [place] [address]Lsnh kaaaemmpgzw77.6 [degF]Otyjcy77.0ProMedica Lynn HospitalComment on above: Performed By: #### ABG ####[facility] ([address] [place] [address] [facility], [place] [address]ZWQ8 (Bld) [Moles/Vol]16.6 mmol/KOkd69-12YjhKjrnus Lynn HospitalComment on above:Performed By: #### ABG ####[facility] ([address] [place] [address])[address] [facility]ITALCyndie [address]VD[place], [place] [address]LEGC. O2 CONC.40 %NormalProMedica Lynn HospitalComment on above:Performed By: #### ABG ####[facility] ([address] [place] [address])[address], [place] [address]Rdtktg (Bld) [Partial pressure]165 mm[Hg]Qzon38-238SxeKxoazz Lynn HospitalComment on above:Performed By: #### ABG ####[facility] ([address] [place] [address])[address], [place] [address]Iludfa saturation in Blood99.0 %Normal>90ProMedica Lynn HospitalComment on above:Performed By: #### ABG ####[facility] ([address] [place] [address])[address], [place] [address]REGSYG SOURCEVentNormalProMedica Lynn HospitalComment on above:Performed By: #### ABG ####[facility] ([address] [place] [address])[address] N. [facility]ULSACyndie BLVD[place], [place] [address]GCU114.6 JBQEYufaiz88-85 [facility] Lynn HospitalComment on above:Performed By: #### ABG ####[facility] ([id number])[address] [place], [place] [address]hR (Bld)7.265 [pH]Low7.350-7.450ProMercy Health Clermont HospitalComment on above:Performed By: #### ABG ####[facility] ([id number])[address] [place] [address] SAMPLE SITEALineNormalProMercy Health Clermont HospitalComment on above:Performed By: #### ABG ####[facility] ([id number])[address] [place], [place] [address]UMNDIA TYPEARTERIALNormalAultman Orrville HospitalComment on above: Performed By: #### ABG ####[facility] ([id number])[address] [place], [place] [address]WNZ AND AUTO DIFFon 08-39-8996YEQDTDAP BASOPHIL0.1 X10E9/L Normal0.0-0.2Pro[facility]ica Pomerene HospitalComment on above:Performed By: #### CBCA, CMP, , 2777-1 ####[facility] ([id number])[address], [place] [address]CCAUYPTW NEUTROPHIL5.1 X10E9/LNormal1.5-6.6 [facility] Pomerene HospitalComment on above:Performed By: #### CBCA, CMP, , 2777- ####[facility] ([id number])[address], [address], [place] [address]Xhidnzsxz/100 WBC (Bld)1.0 %NormalProMercy Health Clermont Hospital Comment on above:Performed By: #### CBCA, CMP, , 2777- ####[facility] ([id number])[address], [address] [place] [address] Eosinophils (Bld) [#/Vol]0.2 10*3/uLNormal0.0-0.4ProCincinnati Children'[facility] Medical Centerca [facility] Comment on above:Performed By: #### CBCChristiano, CMP, , 2776-04 ####[facility] ([id number])[address], [address], [place] [address] Eosinophils/100 WBC (Bld)2.7 %NormalProCincinnati Children'S Hospital Medical Centerca Phoenix HospitalComment on above: Performed By: #### CBCA, CMP, , 2776-04 ####[facility] ([id number])[address], [address], [place] [address]Hypcrtqjhbc distribution width (RBC) [Ratio]17.5 %High11.5-15.0ProCincinnati Children'S Hospital Medical Centerca Phoenix HospitalComment on above: Performed By: #### CBCChristiano, CMP, , 2776-04 ####[facility] ([id number])[address] [address], [place] [address]Ukaetwvgwj (Bld) [Volume fraction]21.0 %Nej45-24NztDsuhxz Phoenix HospitalComment on above:Performed By: #### CBCA, CMP, , 2776-04 ####[facility] ([id number])[address] [address], [place] [address]Pmpklvxamyx (Bld) [#/Vol] 1.0 10*3/uLNormal1.0-3.5Pro[facility]ica Phoenix HospitalComment on above:Performed By: #### CBCA, CMP, , 2776-04 ####[facility] ([id number])[address] [address], [place] [address]Pixujtvpunk/100 WBC (Bld) 14.1 %NormalProMedica Lynn HospitalComment on above:Performed By: #### CBCA, CMP, , 2776-04 ####[facility] ([id number])[address], [address], [place] [address]JYB (RBC) [Entitic mass]32.8 ctTjlzow18-30 [facility] Lynn HospitalComment on above:Performed By: #### CBCA, CMP, , 2776-04 ####[facility] ([id number])[address], [address], [place] [address]ZWLR (RBC) [Mass/Vol]33.1 g/iRNxtnun17-65DwqNvzlvy Lynn HospitalComment on above:Performed By: #### CBCA, CMP, , 2776-04 ####[facility] ([id number])[address], [address] [place] [address]OLP (RBC) [Entitic vol]99 hBMbkqos40-066PxkTegagm Lynn HospitalComment on above:Performed By: #### CBCA, CMP, , 2776-04 ####[facility] ([id number])[address], [address] [place] [address]Ezppfrfnq (Bld) [#/Vol]0.7 10*3/uLNormal0-0.9Pro[facility] Lynn HospitalComment on above:Performed By: #### CBCA, CMP, , 2776-04 ####[facility] ([id number])[address], [address], [place] [address]Qnbpvbhyt/100 WBC (Bld)10.5 %NormalProMedica Lynn HospitalComment on above:Performed By: #### CBCA, CMP, , 2776-04 ####[facility] ([id number])[address], [address] [place] [address]Nzzpoyaxlve/100 WBC (Bld)71.7 %NormalProMedica Lynn HospitalComment on above:Performed By: #### CBCA, CMP, , 2776-04 ####[facility] ([id number])[address], [address], [place] [address]Lnubkcjh mean volume (Bld) [Entitic vol]7.9 fLNormal7-12ProMedica Ylnn HospitalComment on above:Performed By: #### NAMITA CMP, , 2776-04 ####[facility] ([id number])[address], [address], [place] [address]Qrmdgykpf (Bld) [#/Vol]78 10*3/uRBpu077-631SwkIwqmty Lynn HospitalComment on above:Performed By: #### NAMITA CMP, , 2776-04 ####[facility] ([id number])[address], [address] [place] [address]HXW COUNT2.12 X10E12/LLow3.80-5.20ProMedica Lnyn HospitalComment on above:Performed By: #### NAMITA CMP, , 2776-04 ####[facility] ([id number])[address] [address], [place] [address]CDR (Bld) [#/Vol]7.1 10*3/uLNormal4.0-11.0 [facility] HospitalComment on above:Performed By: #### NAMITA, CMP, , 2776-04 ####[facility] ([id number])[address] [address], [place] [address]JYHOTNPBNIMAZ METABOLIC PANELon 17-82-75[address]Qoduffm [Mass/Vol] 3.7 g/dLNormal3.2-5.3[facility] HospitalComment on above:Performed By: #### NAMITA, CMP, , 2776-04 ####[facility] ([id number])[address] [address], [place] [address]NNP [Catalytic activity/Vol]66 U/MXvqlwa48-403LvyEiijdv Lynn HospitalComment on above: Performed By: #### RENA BREAUX, , 2776- ####[facility] ([id number])[address], [address], [place] [address]KBZ [Catalytic activity/Vol]3 U/LNormal0-31[facility] HospitalComment on above:Performed By: #### NAMITA CMP, , 2776-04 ####[facility] ([id number])[address], [address], [place] [address]Krzvv gap [Moles/Vol]15 mmol/LNormal5-15[facility] HospitalComment on above:Performed By: #### RENA BREAUX, , 2776-04 ####[facility] ([id number])[address], [address], [place] [address]FKB [Catalytic activity/Vol]11 U/LNormal0-41 [facility] Phoenix HospitalComment on above:Performed By: #### NAMITA CMP, , 2776-04 ####[facility] ([id number])[address], [address], [place] [address]Bwwankhjz [Mass/Vol]0.7 mg/dLNormal0.3-1.2ProMedOhioHealth [facility] HospitalComment on above:Performed By: #### NAMITA, CMP, , 2776-04 ####[facility] ([id number])[address], [address], [place] [address]Jwrxrvq [Mass/Vol]9.4 mg/dLNormal8.5-10.5ProMedwalker baptist medical center Lynn HospitalComment on above:Performed By: #### NAMITA CMP, , 2776-04 ####[facility] ([id number])[address], [address], [place] [address]Kzuihvej [Moles/Vol]107 mmol/DQqrjac89-886CqfYvidrq Phoenix HospitalComment on above: Performed By: #### RENA BREAUX, , 2776-04 ####[facility] ([id number])[address], [address], [place] [address]EX4 [Moles/Vol]18 mmol/LLow 22-32Pro[facility] Phoenix HospitalComment on above:Performed By: #### RENA BREAUX, , 2776-04 ####[facility] ([id number])[address], [address], [place] [address]Hcxlozufsh [Mass/Vol]2.04 mg/dLHigh0.40-1.00ProMer[facility] HospitalComment on above:Result Comment: METHOD TRACEABLE TO IDMS STANDARDPerformed By: #### RENA BREAUX, , 2776-04 ####[facility] ([id number])[address], [address], [place] [address]GJB/1.73 sq M.predicted among non-blacks MDRD (S/P/Bld) [Vol rate/Area]27 mL/min/{1.73_m2} Low>59Pro[facility] Phoenix HospitalComment on above:Result Comment: Reported eGFR is based on theCKD-EPI 2020 equation that doesnot use a race coefficient.Performed By: #### RENA BREAUX, , 2776-04 ####[facility] ([id number])[address], [address], [place] [address]Tnillvh [Mass/Vol]98 mg/dL Myifqd56-92XbvNbcxge Phoenix HospitalComment on above:Performed By: #### RENA BREAUX, , 2776-04 ####[facility] ([id number])[address], [address], [place] [address]Pqielmjcq [Moles/Vol]3.8 mmol/LNormal3.5-5.0 [facility] HospitalComment on above:Performed By: #### RENA BREAUX, , 2776-04 ####[facility] ([id number])[address], [address], [place] [address]Ahjhngu [Mass/Vol]6.1 g/dLNormal6.0-8.0[facility] HospitalComment on above:Performed By: #### RENA BREAUX, , 2776-04 ####[facility] ([id number])[address], [address], [place] [address]Gpwmhu [Moles/Vol]140 mmol/DXlszlk676-663LgzJtzzpt Lynn HospitalComment on above:Performed By: #### RENA BREAUX, , 2776-04 ####[facility] ([id number])[address], [address], [place] [address]Aapw nitrogen [Mass/Vol]55 mg/dLHigh5-27[facility] HospitalComment on above:Performed By: #### RENA BREAUX, , 2776-04 ####[facility] ([id number])[address], [address], [place] [address]EMXsp 33-67-1753Tijyugkhfd (Bld) [Volume fraction]21.9 %Apu72-34SawSjvkrz Lynn HospitalComment on above: Performed By: #### HH ####[facility] ([id number])[address], [address] [address]Vslzokkxgq (Bld) [Mass/Vol]7.1 g/dLLow 11.7-15.5[facility] Lynn HospitalComment on above:Performed By: #### HH ####[facility] ([id number])[address], [address] [address]Uqfdefkkzg (Bld) [Volume fraction]21.6 %Lrc61-61CixQcqmcc [place] [facility] Comment on above:Performed By: #### HH ####[facility] ([id number])[address], [address] [place] [address]Lrlulakckp (Bld) [Mass/Vol] 7.0 g/dLLow11.7-15.5[facility] HospitalComment on above:Performed By: #### HH ####[facility] ([id number])[address], [address] [place] [address]Afadpopiz By: #### RENA BREAUX, , 2777-1 ####[facility] ([id number])[address], [address] [place] [address] MAGNESIUMon 08-63-3989Bfbhtnzls [Mass/Vol]2.0 mg/dLNormal1.8-2.6ProC[facility] Medical Centerca Phoenix HospitalComment on above:Performed By: #### RENA BREAUX, , 2776-1 ####[facility] ([id number])[address], [address] [place] [address]JZXZTIFIUZag 55-81-5430Hgmiilmcl [Mass/Vol]5.5 mg/dLHigh2.4-4.9Pro[facility] HospitalComment on above:Performed By: #### RENA BREAUX, , 2776-1 ####[facility] ([id number])[address], [address], [place] [address]TQNTCJCJFxc 03-55-8305Evnxdibkp [Moles/Vol]4.0 mmol/LNormal3.5-5.0 [facility] HospitalComment on above:Performed By: #### 2823-3 ####[facility] ([id number])[address], [address], [place] [address]IN CHEST 1 VWon 68-19-8233DO CHEST 1 VWNormalProMedica Lynn HospitalARTERIAL BLOOD GASon 80-24-5168DUDNY'S TESTPassNormalProMedica Lynn HospitalComment on above:Performed By: #### ABG ####[facility] ([id number])[address] [facility], [place] [address]DODT,DEFICIT6.0 MMOL/LHigh0.0-2.0[facility] HospitalComment on above:Performed By: #### ABG ####[facility] ([address] [place] [address]141 [facility] [place] [place] [address]Tfve spungxmcbgn08.6 [degF]Normal 37.0Pro[facility] Phoenix HospitalComment on above:Performed By: #### ABG ####[facility] ([address] [place] [address])[address] [place], [place] [address]UFL4 (Bld) [Moles/Vol]20.1 mmol/LXwj11-26YwtYoylfr Phoenix HospitalComment on above: Performed By: #### ABG ####[facility] ([address] [place] [address])[address]. [facility], [place] [address]IRES. O2 CONC.40 %NormalProMedica Phoenix HospitalComment on above:Performed By: #### ABG ####[facility] ([address] [place] [address])2141 [facility] [place], [place] [address]Ljcfvk (Bld) [Partial pressure]101 mm[Hg]Nfcu26-331 [facility] HospitalComment on above:Performed By: #### ABG ####[facility] ([address] [place] [address])[address] [facility] [place] [address]Kdvxwk saturation in Blood97.0 %Normal>90Pro[facility] HospitalComment on above: Performed By: #### ABG ####[facility] ([id number])[address] [facility], [place] [address]JMCXDP SOURCEVentNormalProMedica Phoenix HospitalComment on above:Performed By: #### ABG ####[facility] ([id number])[address] [place], [place] [address]VOC037.3 COJOFqhwdn60-77JrmMtrehq [facility] Comment on above:Performed By: #### ABG ####[facility] ([id number])[address] [place], [place] [address]sY (Bld)7.274 [pH]Low7.350-7.[address] [facility] HospitalComment on above:Performed By: #### ABG ####[facility] ([id number])[address] [place], [place] [address]OEAFYQ SITE ALineNormalProMercy Health Clermont HospitalComment on above:Performed By: #### ABG ####[facility] ([id number])[address] [place] [address] SAMPLE [address]AR[address]Mer[address] [facility] Hospital HospitalComment on above:Performed By: #### ABG ####[facility] ([id number])[address] [place], [place] [address]ICA AND AUTO DIFFon 07-68-6969ZKDHQELG BASOPHIL0.1 X10E9/LNormal0.0-0.2 [facility] HospitalComment on above:Performed By: #### CBCA, CMP, [address]-6, 2777-1 ####[facility] ([id number])[address], [place] [address]TJXVAKKZ NEUTROPHIL3.8 X10E9/LNormal1.5-6.6[facility] HospitalComment on above:Performed By: #### CBCA, CMP, 21702-2, 2777-1 ####[facility] ([id number])[address], [address], [place] [address]Jyelgywzo/100 WBC (Bld)1.0 %NormalProMedica Lynn HospitalComment on above:Performed By: #### CBCA, CMP, , 2776-04 ####[facility] ([id number])[address], [address] [place] [address]Wuzsorfmlnx (Bld) [#/Vol]0.3 10*3/uLNormal0.0-0.4[facility] HospitalComment on above: Performed By: #### CBCA, CMP, , 2776-04 ####[facility] ([id number])[address], [address], [place] [address]Vvhhrjxmrsf/100 WBC (Bld) 4.8 %NormalProMedica Lynn HospitalComment on above:Performed By: #### CBCA, CMP, , 2776-04 ####[facility] ([id number])[address], [address], [place] [address]Zoucbqosezf distribution width (RBC) [Ratio]17.9 %High11.5-15.0[facility] HospitalComment on above:Performed By: #### CBCA, CMP, , 2776-04 ####[facility] ([id number])[address] [address] [place] [address]Czolbbkizs (Bld) [Volume fraction]22.6 %Low 35-47Pro[facility] HospitalComment on above:Performed By: #### CBCA, CMP, , 2776-04 ####[facility] ([id number])[address], [address] [place] [address]Fwtciimnug (Bld) [Mass/Vol]7.2 g/dLLow11.7-15.5 [facility] HospitalComment on above:Performed By: #### CBCA, CMP, , 2776-04 ####[facility] ([id number])[address], [address], [place] [address]Vpfokqgufxm (Bld) [#/Vol]1.0 10*3/uLNormal1.0-3.5[facility] HospitalComment on above:Performed By: #### CBCA, CMP, , 2776-04 ####[facility] ([id number])[address], [address], [place] [address]Bntrheusssi/100 WBC (Bld)17.1 %NormalProMercy Health [facility] HospitalComment on above:Performed By: #### CBCA, CMP, , 2776-04 ####[facility] ([id number])[address], [address] [place] [address]EZO (RBC) [Entitic mass]31.8 luNbfusx63-04VthGywrwy Phoenix HospitalComment on above:Performed By: #### CBCA, CMP, , 2776-04 ####[facility] ([id number])[address], [address] [place] [address]AJLS (RBC) [Mass/Vol]31.8 g/qDYud30-51AgcZzfyno [place] HospitalComment on above:Performed By: #### CBCA, CMP, , 2776-04 ####[facility] ([id number])[address], [address], [place] [address]JDB (RBC) [Entitic vol]100 qIHyoqhj07-556 [facility] HospitalComment on above:Performed By: #### CBCA, CMP, , 2776-04 ####[facility] ([id number])[address], [address] [place] [address]Qaazdhshl (Bld) [#/Vol]0.7 10*3/uLNormal0-0.9[facility] HospitalComment on above:Performed By: #### CBCA, CMP, , 2776-04 ####[facility] ([id number])[address], [place] [address]Zmwedaezf/100 WBC (Bld)11.9 %NormalProCincinnati Children'S Hospital Medical Centerca Phoenix HospitalComment on above:Performed By: #### CBCA, CMP, , 2776-04 ####[facility] ([id number])[address], [place] [address]Jxqopltjoow/100 WBC (Bld)65.2 %NormalProCincinnati Children'S Hospital Medical Centerca Phoenix HospitalComment on above:Performed By: #### CBCA, CMP, , 2776-04 ####[facility] ([id number])[address], [place] [address]Kfldcoii mean volume (Bld) [Entitic vol]7.6 fLNormal7-12[facility] HospitalComment on above:Performed By: #### CBCA, CMP, , 2776-04 ####[facility] ([id number])[address], [address], [place] [address]Iflzdeczc (Bld) [#/Vol]58 10*3/nSFry594-770 [facility] HospitalComment on above:Performed By: #### CBCA, CMP, , 2776-04 ####[facility] ([id number])[address], [place] [address]AYW COUNT2.26 X10E12/LLow3.80-5.20[facility] Comment on above:Performed By: #### CBCA, CMP, , 2776-04 ####[facility] ([id number])[address], [address], [place] [address]JCC (Bld) [#/Vol]5.8 10*3/uLNormal4.0-11.0[facility] HospitalComment on above: Performed By: #### NAMITA CMP, , 2776- ####[facility] ([id number])[address], [address], [place] [address]UMHRMXTIYKEUF METABOLIC PANELon 93-27-1731Qsjsmyx [Mass/Vol]3.6 g/dLNormal3.2-5.3[facility] HospitalComment on above:Performed By: #### NAMITA, CMP, , 2776- ####[facility] ([id number])[address], [address], [place] [address]TKN [Catalytic activity/Vol]61 U/QYftidl18-234YgzMvcbhi [facility] Comment on above:Performed By: #### NAMITA CMP, , 2776-04 ####[facility] ([id number])[address], [address], [place] [address]LJG [Catalytic activity/Vol]U/LNormal0-31[facility] HospitalComment on above: Performed By: #### NAMITA, CMP, , 2776-04 ####[facility] ([id number])[address], [address], [place] [address]Qodvh gap [Moles/Vol]10 mmol/LNormal5-15[facility] HospitalComment on above:Performed By: #### CLARIBELA, CMP, , 2776-04 ####[facility] ([id number])[address], [address], [place] [address]LDT [Catalytic activity/Vol]11 U/LNormal0-41 [facility] HospitalComment on above:Performed By: #### CBCA, CMP, , 2776- ####[facility] ([id number])[address], [place] [address]Okdjfqroz [Mass/Vol]0.8 mg/dLNormal0.3-1.2PS[facility] HospitalComment on above:Performed By: #### RENA BREAUX, , 2776-04 ####[facility] ([id number])[address], [address], [place] [address]Qyeptru [Mass/Vol]9.0 mg/dLNormal8.5-10.5PSalem City Hospital HospitalComment on above:Performed By: #### RENA BREAUX, , 2776-04 ####[facility] ([id number])[address], [address], [place] [address]Dojugqgk [Moles/Vol]108 mmol/XYhtqkc34-975TnvJklipb [place] HospitalComment on above: Performed By: #### RENA BREAUX, , 2776-04 ####[facility] ([id number])[address] [address], [place] [address]AB3 [Moles/Vol]21 mmol/LLow 22-32PSalem City Hospital HospitalComment on above:Performed By: #### RENA BREAUX, , 2776-04 ####[facility] ([id number])[address] [address], [place] [address]Gykyjfxins [Mass/Vol]1.44 mg/dLHigh0.40-1.00Pro[facility] HospitalComment on above:Result Comment: METHOD TRACEABLE TO IDMS STANDARDPerformed By: #### RENA BREAUX, , 2776-04 ####[facility] ([id number])[address] [address] [place] [address]EBY/1.73 sq M.predicted among non-blacks MDRD (S/P/Bld) [Vol rate/Area]41 mL/min/{1.73_m2} Low>59[facility] HospitalComment on above:Result Comment: Reported eGFR is based on theCKD-EPI 2020 equation that doesnot use a race coefficient.Performed By: #### RENA BREAUX, , 2776-04 ####[facility] ([id number])[address], [place] [address]Asamgan [Mass/Vol]82 mg/dL Hpbbkx58-31PejZrkjbf [place] HospitalComment on above:Performed By: #### RENA BREAUX, , 2776-04 ####[facility] ([id number])[address], [address], [place] [address]Kibcockyt [Moles/Vol]3.7 mmol/LNormal3.5-5.0 ProMChillicothe VA Medical CenterComment on above:Performed By: #### RENA BREAUX, , 2776-04 ####[facility] ([id number])[address], [place] [address]Pwnoknx [Mass/Vol]5.8 g/dLLow6.0-8.0[facility] Comment on above:Performed By: #### RENA BREAUX, , 2776-04 ####[facility] ([id number])[address] [address] [place] [address] Sodium [Moles/Vol]139 mmol/EEptwaq336-202BosTxvxqn [place] HospitalComment on above:Performed By: #### RENA BREAUX, , 2776-04 ####[facility] ([id number])[address] [address] [place] [address]Zchm nitrogen [Mass/Vol]30 mg/dLHigh5-27ProMercy Health Clermont HospitalComment on above:Performed By: #### RENA BREAUX, , 2776-04 ####[facility] ([id number])[address], [place] [address]FUWma 17-60-8087Nztvdfzkew (Bld) [Volume fraction]21.9 %Dwa16-63FyrJjoblf [place] HospitalComment on above: Performed By: #### HH ####[facility] ([id number])[address], [address] [place] [address]Gpxjzxolhy (Bld) [Mass/Vol]7.2 g/dLLow 11.7-15.5PSalem City Hospital HospitalComment on above:Performed By: #### HH ####[facility] ([id number])[address], [address] [place] [address]Ahfmymmsol (Bld) [Volume fraction]23.0 %Peq76-31PcfRvhgwo [facility] Comment on above:Performed By: #### HH ####[facility] ([id number])[address] [address] [place] [address]Cgecgyumpy (Bld) [Mass/Vol] 7.5 g/dLLow11.7-15.5PSalem City Hospital HospitalComment on above:Performed By: #### HH ####[facility] ([id number])[address] [address] [place] [address]Jootkes (P mikey) [Moles/Vol]on 79-67-0115MKDOFFN W/REFLEX1.4 mmol/LNormal0.4-2.0ProMer[facility] HospitalComment on above:Result Comment: Result did not trigger repeat Lactate,re-order if needed.Performed By: #### 25592-4 ####[facility] ([id number])[address] [address] [place] [address]4466ZIQNHCTIUfm 50-01-0707Dhkzlexyh [Mass/Vol]2.1 mg/dLNormal 1.8-2.6Pro[facility] HospitalComment on above:Performed By: #### CBCA, CMP, 47420-4, 2777-1 ####[facility] ([id number])[address], [address], [place] [address]SXAUCKKKJZbz 49-82-3639Jayqzflqu [Mass/Vol]4.3 mg/dL Normal2.4-4.9[facility] HospitalComment on above:Performed By: #### CBCA, CMP, , 2776-04 ####[facility] ([id number])[address], [address], [place] [address]DL CHEST 1 VWon 03-69-1383HH CHEST 1 VWNormal ProMChillicothe VA Medical CenterCB AND AUTO DIFFon 31-60-1039SJEJCFMV BASOPHIL0.1 X10E9/LNormal0.0-0.2PGuernsey Memorial HospitalComment on above:Performed By: #### CBCA CMP, , 2776-04 ####[facility] ([id number])[address], [address] [place] [address]YVATSITA NEUTROPHIL3.5 X10E9/LNormal1.5-6.6 [facility] HospitalComment on above:Performed By: #### CBCA, CMP, , 2776-04 ####[facility] ([id number])[address] [address] [place] [address]Nqjrqnqin/100 WBC (Bld)1.2 %NormalAultman Orrville Hospital Comment on above:Performed By: #### CBCA, CMP, , 2776-04 ####[facility] ([id number])[address], [address] [place] [address] Eosinophils (Bld) [#/Vol]0.3 10*3/uLNormal0.0-0.4[facility] Comment on above:Performed By: #### CBCA, CMP, , 2776-04 ####[facility] ([id number])[address] [address] [address] Eosinophils/100 WBC (Bld)4.7 %NormalProCincinnati Children'S Hospital Medical Centerca [place] HospitalComment on above: Performed By: #### CBCChristiano, CMP, , 2776-04 ####[facility] ([id number])[address], [address], [place] [address]Cqyneirdmba distribution width (RBC) [Ratio]17.6 %High11.5-15.0ProCincinnati Children'S Hospital Medical Centerca [place] HospitalComment on above: Performed By: #### CBCA, CMP, , 2776-04 ####[facility] ([id number])[address] [address], [place] [address]Jamaonotkb (Bld) [Volume fraction]22.5 %Gcl99-18IxfTkvxrr [place] HospitalComment on above:Performed By: #### CBCChristiano, CMP, , 2776-04 ####[facility] ([id number])[address] [address], [place] [address]Dgpctffmjz (Bld) [Mass/Vol] 7.4 g/dLLow11.7-15.5PSalem City Hospital HospitalComment on above:Performed By: #### CBCA, CMP, , 2776-04 ####[facility] ([id number])[address] [address], [place] [address]Lhstfnnwcms (Bld) [#/Vol]1.2 10*3/uLNormal 1.0-3.5ProMedOhio[facility] HospitalComment on above:Performed By: #### CBCA, CMP, , 2776-04 ####[facility] ([id number])[address] [address], [place] [address]Tvaeernyamj/100 WBC (Bld)21.1 %NormalProCincinnati Children'S Hospital Medical Centerca [place] HospitalComment on above:Performed By: #### CBCA, CMP, , 2776-04 ####[facility] ([id number])[address], [address] [place] [address]CGM (RBC) [Entitic mass]31.7 voUrbvgv24-41KwrHbavyj [place] HospitalComment on above:Performed By: #### CBCA, CMP, , 2776-04 ####[facility] ([id number])[address], [address] [place] [address]VIUB (RBC) [Mass/Vol]32.7 g/lPKxdgya67-18WdiPpkmgr Lynn HospitalComment on above: Performed By: #### CBCA, CMP, , 2776-04 ####[facility] ([id number])[address], [address] [place] [address]KWP (RBC) [Entitic vol]97 eGXpospo06-105HyaMnlpki [place] HospitalComment on above:Performed By: #### CBCA, CMP, , 2776-04 ####[facility] ([id number])[address], [address] [place] [address]Npsyluyws (Bld) [#/Vol]0.8 10*3/uLNormal0-0.9 [facility] HospitalComment on above:Performed By: #### CBCA, CMP, , 2776-04 ####[facility] ([id number])[address], [address] [place] [address]17[address]Eslqzxgih/100 WBC (Bld)13.6 %NormalProCincinnati Children'S Hospital Medical Centerca [facility] Comment on above:Performed By: #### CBCA, CMP, , 2776-04 ####[facility] ([id number])[address], [address] [place] [address] Neutrophils/100 WBC (Bld)59.4 %NormalProMedica Lynn HospitalComment on above: Performed By: #### CBCA, CMP, , 2776-04 ####[facility] ([id number])[address], [address] [place] [address]Fkgnacol mean volume (Bld) [Entitic vol]7.0 fLNormal7-12[facility] HospitalComment on above:Performed By: #### CBCA, CMP, , 2776-04 ####[facility] ([id number])[address], [address] [place] [address]Zedbvzksq (Bld) [#/Vol]65 10*3/yYNik664-934MxeHkjfpg Lynn HospitalComment on above:Performed By: #### CBCChristiano, CMP, , 2776-04 ####[facility] ([id number])[address], [address] [place] [address]VZK COUNT2.32 X10E12/LLow3.80-5.20[facility] HospitalComment on above:Performed By: #### CBCChristiano, CMP, , 2776-04 ####[facility] ([id number])[address], [address] [place] [address]IUF (Bld) [#/Vol]5.9 10*3/uLNormal4.0-11.0[facility] HospitalComment on above:Performed By: #### CBCA, CMP, , 2776-04 ####[facility] ([id number])[address], [address] [place] [address] 34343UPEDLPXAFHLVB METABOLIC PANELon 84-56-4095Ixpbopi [Mass/Vol]3.2 g/dLNormal3.2-5.3[facility] HospitalComment on above:Performed By: #### CBCA, CMP, , 2777-1 ####[facility] ([id number])[address], [address], [place] [address]EEP [Catalytic activity/Vol]65 U/VQlrnay27-432DxnGqxwwu [facility] Comment on above:Performed By: #### RENA BRAEUX, , 2776-04 ####[facility] ([id number])[address], [address], [place] [address]GNN [Catalytic activity/Vol]4 U/LNormal0-31[facility]MedOhio[facility] HospitalComment on above:Performed By: #### RENA BREAUX, , 2776-04 ####[facility] ([id number])[address], [address], [place] [address]Bkchp gap [Moles/Vol]8 mmol/LNormal5-15Pro[facility] HospitalComment on above:Performed By: #### RENA BREAUX, , 2776-04 ####[facility] ([id number])[address], [address], [place] [address]TUT [Catalytic activity/Vol]11 U/LNormal0-41 [facility] HospitalComment on above:Performed By: #### RENA BREAUX, , 2776-04 ####[facility] ([id number])[address], [address], [place] [address]Okuugadin [Mass/Vol]1.1 mg/dLNormal0.3-1.2ProMedOhio[facility] HospitalComment on above:Performed By: #### NAMITA CMP, , 2776-04 ####[facility] ([id number])[address], [address], [place] [address]Nyaizvg [Mass/Vol]8.6 mg/dLNormal8.5-10.5[facility] HospitalComment on above:Performed By: #### NAMITA CMP, , 2776-04 ####[facility] ([id number])[address], [address], [place] [address]Rlwoqsae [Moles/Vol]107 mmol/GBlzqpk79-731HuzUmlarn [place] HospitalComment on above: Performed By: #### RENA BREAUX, , 2776-04 ####[facility] ([id number])[address], [address], [place] [address]XS6 [Moles/Vol]23 mmol/L Cqoayw79-95AkaMpouty [facility]ome[facility] HospitalComment on above:Performed By: #### RENA BREAUX, , 2776-04 ####[facility] ([id number])[address], [address], [place] [address]Tmuchuomxb [Mass/Vol]0.88 mg/dLNormal0.40-1.00 [facility] HospitalComment on above:Result Comment: METHOD TRACEABLE TO IDMS STANDARDPerformed By: #### RENA BREAUX, , 2776-04 ####[facility] ([id number])[address], [address], [place] [address]JME/1.73 sq M.predicted among non-blacks MDRD (S/P/Bld) [Vol rate/Area]75 mL/min/{1.73_m2} Normal>59ProMercy Health Clermont HospitalComment on above:Result Comment: Reported eGFR is based on theCKD-EPI 2020 equation that doesnot use a race coefficient. Performed By: #### RENA BREAUX, , 2776-04 ####[facility] ([id number])[address], [address], [place] [address]Duaajqz [Mass/Vol]108 mg/dL Houj20-37QikPihkha [place] HospitalComment on above:Performed By: #### RENA BREAUX, , 2776-04 ####[facility] ([id number])[address], [address], [place] [address]Hymzxxzsq [Moles/Vol]3.4 mmol/LLow3.5-5.0ProC[facility] Medical Centerca [place] HospitalComment on above:Performed By: #### RENA BREAUX, , 1 ####[facility] ([id number])[address], [address], [place] [address]Uhqqxwi [Mass/Vol]5.5 g/dLLow6.0-8.0ProC[facility] Medical Centerca [place] HospitalComment on above:Performed By: #### RENA BREAUX, , 2776-04 ####[facility] ([id number])[address], [address], [place] [address]Umemar [Moles/Vol]138 mmol/YUgtbeg830-761TseXcyper [place] HospitalComment on above:Performed By: #### RENA BREAUX, , 2776-04 ####[facility] ([id number])[address], [address], [place] [address]Tfvs nitrogen [Mass/Vol]9 mg/dLNormal5-27 ProMhale county hospitala [place] HospitalComment on above:Performed By: #### RENA BREAUX, , 2776-04 ####[facility] ([id number])[address], [address], [place] [address]EZUKGXIJUlh 77-85-2793Xmamifvjz [Mass/Vol]1.8 mg/dLNormal 1.8-2.6Pro[facility] HospitalComment on above:Performed By: #### RENA BREAUX, , 2776-04 ####[facility] ([id number])[address], [address], [place] [address]Ndpvbguih Ionized ISE (Bld) [Moles/Vol]on 06-19-2024 Magnesium [Moles/Vol]0.62 mmol/LNormal0.45-0.74[facility] HospitalComment on above:Result Comment: NEW REFERENCE RANGEPerformed By: #### 04679-4 ####[facility] ([id number])[address], [address] [place] [address] 89[address]LJCHJHGIFPta 62-82-8377Hgjhtgyuh [Mass/Vol]4.2 mg/dLNormal2.4-4.9[facility] HospitalComment on above:Performed By: #### 2823-3, 2777-1 ####[facility] ([id number])[address], [address] [place] [address] Phosphate [Mass/Vol]2.1 mg/dLLow2.4-4.9[facility] HospitalComment on above:Performed By: #### CBCA, CMP, , 2776-04 ####[facility] ([id number])[address], [address] [place] [address]SSSBKNNPByc 06-19-2024 Potassium [Moles/Vol]4.1 mmol/LNormal3.5-5.0[facility] HospitalComment on above:Performed By: #### 2823-3, 2777-1 ####[facility] ([id number])[address], [address] [place] [address]ZM CHEST 1 VWon 06-19-2024 XR CHEST 1 VWNormalProMedica Lynn HospitalCB AND AUTO DIFFon 06-18-2024 ABSOLUTE BASOPHIL0.1 X10E9/LNormal0.0-0.2[facility] HospitalComment on above:Performed By: #### CBCA, CMP, LIVR, , 2776-04 ####[facility] ([id number])[address], [address] [place] [address]WFKRPFHW NEUTROPHIL3.6 X10E9/LNormal1.5-6.6[facility] HospitalComment on above: Performed By: #### CBCA, CMP, LIVR, , 2776-04 ####[facility] ([id number])[address], [address], [place] [address]Evfqxshdq/100 WBC (Bld)1.5 %NormalProMedica Lynn HospitalComment on above:Performed By: #### CBCA, CMP, LIVR, , 2776-04 ####[facility] ([id number])[address], [address], [place] [address]Ehdaudgjawz (Bld) [#/Vol] 0.2 10*3/uLNormal0.0-0.4[facility] HospitalComment on above:Performed By: #### CBCA, CMP, LIVR, , 2776-04 ####[facility] ([id number])[address], [address], [place] [address]Lgeysugtfwl/100 WBC (Bld) 3.9 %NormalProMedica Lynn HospitalComment on above:Performed By: #### CBCA, CMP, LIVR, , 2776-04 ####[facility] ([id number])[address], [address], [place] [address]Htvfdnzbyhy distribution width (RBC) [Ratio] 17.2 %High11.5-15.0[facility] HospitalComment on above:Performed By: #### CBCA, CMP, LIVR, , 2776-04 ####[facility] ([id number])[address], [address], [place] [address]Canadyecnb (Bld) [Volume fraction]24.3 %Zeg19-40AzcQvaoke Lynn HospitalComment on above:Performed By: #### CBCA, CMP, LIVR, , 2776-04 ####[facility] ([id number])[address], [address], [place] [address]Qtgbbolxti (Bld) [Mass/Vol] 8.1 g/dLLow11.7-15.5PSalem City Hospital HospitalComment on above:Performed By: #### CBCA, CMP, LIVR, , 2776-04 ####[facility] ([id number])[address], [address], [place] [address]Fmlgudvsobs (Bld) [#/Vol] 1.2 10*3/uLNormal1.0-3.5PSalem City Hospital HospitalComment on above:Performed By: #### CBCA, CMP, LIVR, , 2776-04 ####[facility] ([id number])[address], [address], [place] [address]Jytmnoopjlw/100 WBC (Bld) 20.1 %NormalProMedica Phoenix HospitalComment on above:Performed By: #### CBCA, CMP, LIVR, , 2776-04 ####[facility] ([id number])[address], [address], [place] [address]UYA (RBC) [Entitic mass]32.1 fyUwszut90-93 [facility] HospitalComment on above:Performed By: #### CBCA, CMP, LIVR, , 2776-04 ####[facility] ([id number])[address], [address], [place] [address]IUAW (RBC) [Mass/Vol]33.2 g/zOVdnemo74-55IicDzbnuu [facility] HospitalComment on above:Performed By: #### CBCA, CMP, LIVR, , 2776-04 ####[facility] ([id number])[address], [address], [place] [address]DNQ (RBC) [Entitic vol]97 dADynplm73-607HrnAjoknn [facility] HospitalComment on above:Performed By: #### CBCA, CMP, LIVR, , 2776-04 ####[facility] ([id number])[address], [address] [place] [address]Bsimmfkkw (Bld) [#/Vol]0.8 10*3/uLNormal0-0.9[facility] Comment on above:Performed By: #### CBCA, CMP, LIVR, , 2776-04 ####[facility] ([id number])[address], [address], [place] [address] Monocytes/100 WBC (Bld)13.1 %NormalProCincinnati Children'S Hospital Medical Centerca [place] HospitalComment on above: Performed By: #### CBCA, CMP, LIVR, , 2776-04 ####[facility] ([id number])[address], [address], [place] [address]Aqiebamuosb/100 WBC (Bld)61.4 %NormalProCincinnati Children'S Hospital Medical Centerca [place] HospitalComment on above:Performed By: #### CBCA, CMP, LIVR, , 2776-04 ####[facility] ([id number])[address], [address], [place] [address]Evzrtccn mean volume (Bld) [Entitic vol]6.6 fLLow7-12[facility] HospitalComment on above:Performed By: #### CBCA, CMP, LIVR, , 2776-04 ####[facility] ([id number])[address], [address], [place] [address]Qbwmwqdqp (Bld) [#/Vol]77 10*3/rXLcu821-919LjdVgpnmr Lynn HospitalComment on above:Performed By: #### CBCA, CMP, LIVR, , 2776-04 ####[facility] ([id number])[address], [address], [place] [address]HFR COUNT2.52 X10E12/LLow 3.80-5.20[facility] HospitalComment on above:Performed By: #### CBCA, CMP, LIVR, , 2776-04 ####[facility] ([id number])[address], [address], [place] [address]JYF (Bld) [#/Vol]5.8 10*3/uLNormal4.0-11.0 [facility] HospitalComment on above:Performed By: #### CBCA, CMP, LIVR, , 2776-04 ####[facility] ([id number])[address], [address], [place] [address]YGLZICVMCJIJZ METABOLIC PANELon 84-59-2895Qqycgng [Mass/Vol]2.8 g/dLLow3.2-5.3[facility] HospitalComment on above:Performed By: #### CBCA, CMP, LIVR, , 2776-04 ####[facility] ([id number])[address], [address], [place] [address]OLQ [Catalytic activity/Vol]78 U/LUnkqlf69-465EbvIyagvj [place] HospitalComment on above: Performed By: #### CBCA, CMP, LIVR, , 2776-04 ####[facility] ([id number])[address], [address], [place] [address]JAZ [Catalytic activity/Vol]3 U/LNormal0-31[facility] HospitalComment on above:Performed By: #### CBCA, CMP, LIVR, , 2776-04 ####[facility] ([id number])[address], [place] [address]Yndje gap [Moles/Vol]7 mmol/LNormal5-15[facility] HospitalComment on above:Performed By: #### CBCA, CMP, LIVR, , 2776-04 ####[facility] ([id number])[address], [address], [place] [address]OAO [Catalytic activity/Vol]15 U/LNormal0-41Pro[facility] HospitalComment on above:Performed By: #### CBCA, CMP, LIVR, , 2776-04 ####[facility] ([id number])[address], [address], [place] [address]Jhrjqblmf [Mass/Vol]1.2 mg/dLNormal0.3-1.2Pro[facility]Ohio[facility] HospitalComment on above:Performed By: #### CBCA, CMP, LIVR, , 2776-04 ####[facility] ([id number])[address], [address], [place] [address]Ooatyxc [Mass/Vol]8.6 mg/dL Normal8.5-10.5ProMedOhio[facility] HospitalComment on above:Performed By: #### CBCA, CMP, LIVR, , 2776-04 ####[facility] ([id number])[address], [address], [place] [address]Nzdmlyuo [Moles/Vol]106 mmol/QClhoye22-506 [facility] HospitalComment on above:Performed By: #### CBCA, CMP, LIVR, , 2776-04 ####[facility] ([id number])[address], [address], [place] [address]TI1 [Moles/Vol]26 mmol/EJljpiz33-84TasWgmbmk [place] HospitalComment on above:Performed By: #### CBCA, CMP, LIVR, , 2776-04 ####[facility] ([id number])[address], [address], [place] [address]Pbvupltyqc [Mass/Vol]0.72 mg/dLNormal0.40-1.00[facility] Comment on above:Result Comment: METHOD TRACEABLE TO IDMS STANDARDPerformed By: #### NAMITA, CMP, LIVR, , 2776-04 ####[facility] ([id number])[address] [address], [place] [address]oYIE (CKD-EPI) NON-RACE DEPENDENT>90Normal>59ProMer[facility] HospitalComment on above:Result Comment: Reported eGFR is based on theCKD-EPI 2020 equation that doesnot use a race coefficient.Performed By: #### RENA BREAUX, LIVR, , 2776-04 ####[facility] ([id number])[address] [address] [address] Glucose [Mass/Vol]95 mg/iQBiacgf32-82AmlXcrfal [place] HospitalComment on above: Performed By: #### RENA BREAUX, LIVR, , 2776-04 ####[facility] ([id number])[address] [address], [place] [address]Ezbpehpkp [Moles/Vol] 3.9 mmol/LNormal3.5-5.0ProMercy Health Clermont HospitalComment on above:Performed By: #### CBCChristiano, CMP, LIVR, , 2776-04 ####[facility] ([id number])[address] [address], [place] [address]Pbdnqkm [Mass/Vol]5.5 g/dL Low6.0-8.0ProMercy Health Clermont HospitalComment on above:Performed By: #### CBCA, CMP, LIVR, , 2776-04 ####[facility] ([id number])[address] [address], [place] [address]Umxqsz [Moles/Vol]139 mmol/VUofwur398-128 [facility] HospitalComment on above:Performed By: #### CBCA, CMP, LIVR, , 2776-04 ####[facility] ([id number])[address], [address], [place] [address]Zzzu nitrogen [Mass/Vol]8 mg/dLNormal5-27[facility] HospitalComment on above:Performed By: #### CBCA, CMP, LIVR, , 2776-04 ####[facility] ([id number])[address], [address], [place] [address]MJSGQ PANELon 06-05-2304Tlxbmquml.direct [Mass/Vol]0.7 mg/dL High0.0-0.4[facility] HospitalComment on above:Performed By: #### CBCChristiano, CMP, LIVR, , 2776-04 ####[facility] ([id number])[address], [address] [place] [address]CCBBRZWDTaa 84-59-9014Vguhzzuuc [Mass/Vol] 1.9 mg/dLNormal1.8-2.6ProC[facility] Medical Centerca [facility] HospitalComment on above:Performed By: #### CBCA, CMP, LIVR, , 2776-04 ####[facility] ([id number])[address], [address] [place] [address]LXQREJQTANof 06-18-2024 Phosphate [Mass/Vol]3.1 mg/dLNormal2.4-4.9Pro[facility] Centerca [facility] HospitalComment on above:Performed By: #### CBCA, CMP, LIVR, , 2776-04 ####[facility] ([id number])[address], [address], [place] [address]TDTHPNV AND INR on 53-32-0041LFD Coag (PPP) [Relative time]1.1 {INR}Normal0.9-1.2PGuernsey Memorial HospitalComment on above:Performed By: #### HUDSON, 52466-1 ####[facility] ([id number])[address], [id number], [place] [address]IK Coag (PPP) [Time]13.0 sNormal9.8-13.2PSalem City Hospital HospitalComment on above: Performed By: #### HUDSON, 84419-1 ####[facility] ([id number])[address], [id number], [place] [address]TY CHEST 1 VWon 29-94-3218AQ CHEST 1 VWNormalProMercy Health Clermont HospitalaPTT Coag (PPP) [Time]on 06-18-2024 aPTT Coag (Bld) [Time]31 fSzgoaa42-00CpmNtoqhp [place] HospitalComment on above: Performed By: #### HUDSON, 08147-3 ####[facility] ([id number])[address], [id number], [place] [address]CST AND AUTO DIFFon 82-00-0007VCWGQMWF BASOPHIL0.1 X10E9/LNormal0.0-0.2PGuernsey Memorial Hospital Comment on above:Performed By: #### CBCA, CMP, LIVR, , 2776-1 ####[facility] ([id number])[address], [address], [place] [address] ABSOLUTE NEUTROPHIL3.2 X10E9/LNormal1.5-6.6[facility] HospitalComment on above:Performed By: #### CBCA, CMP, LIVR, , 1 ####[facility] ([id number])[address], [address], [place] [address]Derojqkuh/100 WBC (Bld)1.4 %NormalProMercy Health [facility] Hospital HospitalComment on above:Performed By: #### CBCA, CMP, LIVR, , 2776-04 ####[facility] ([id number])[address], [address], [place] [address]Zzyvgczgygb (Bld) [#/Vol] 0.1 10*3/uLNormal0.0-0.4Pro[facility] HospitalComment on above:Performed By: #### CBCA, CMP, LIVR, , 2776-04 ####[facility] ([id number])[address], [address], [place] [address]Suyhtclvfpz/100 WBC (Bld) 2.4 %NormalProMercy Health [facility] Hospital HospitalComment on above:Performed By: #### CBCA, CMP, LIVR, , 2776-04 ####[facility] ([id number])[address], [address] [place] [address]Jvttzyiytyt distribution width (RBC) [Ratio] 17.5 %High11.5-15.0ProMer[facility] Health [facility] HospitalComment on above:Performed By: #### CBCA, CMP, LIVR, , 2776-04 ####[facility] ([id number])[address] [address] [place] [address]Iotumgegyh (Bld) [Volume fraction]24.5 %Baa91-35MsaMxrzrt [place] HospitalComment on above:Performed By: #### CBCA, CMP, LIVR, , 2776-04 ####[facility] ([id number])[address] [address] [place] [address]Rzhtryiths (Bld) [Mass/Vol] 8.3 g/dLLow11.7-15.5PSouth [facility] Memorial Hospitalica [facility] HospitalComment on above:Performed By: #### CBCA, CMP, LIVR, , 2776-04 ####[facility] ([id number])[address], [address] [place] [address]Gpgcodrilit (Bld) [#/Vol] 0.9 10*3/uLLow1.0-3.5[facility] HospitalComment on above:Performed By: #### CBCA, CMP, LIVR, , 2776-04 ####[facility] ([id number])[address], [address], [place] [address]Uogmtrrguws/100 WBC (Bld) 19.3 %NormalProMercy Health [facility] Hospital HospitalComment on above:Performed By: #### CBCA, CMP, LIVR, , 2776-04 ####[facility] ([id number])[address], [address] [place] [address] 33949WOI (RBC) [Entitic mass]32.3 nfPkmsun33-92 [facility] HospitalComment on above:Performed By: #### CBCA, CMP, LIVR, , 2776-04 ####[facility] ([id number])[address], [address] [place] [address]MHUX (RBC) [Mass/Vol]33.8 g/zNNtvjwx08-16PuyMnhdfc [place] HospitalComment on above:Performed By: #### CBCA, CMP, LIVR, , 2776-04 ####[facility] ([id number])[address], [address] [place] [address] 37366NPJ (RBC) [Entitic vol]96 wCIknbdt23-113LkxIuihvd [place] HospitalComment on above:Performed By: #### CBCA, CMP, LIVR, , 2776-04 ####[facility] ([id number])[address], [address] [place] [address]Lvllnrags (Bld) [#/Vol]0.5 10*3/uLNormal0-0.9[facility] Hospital Comment on above:Performed By: #### CBCA, CMP, LIVR, , 2776-04 ####[facility] ([id number])[address], [address], [place] [address] Monocytes/100 WBC (Bld)10.6 %NormalProMedica Lynn HospitalComment on above: Performed By: #### CBCA, CMP, LIVR, , 2776-04 ####[facility] ([id number])[address], [address], [place] [address]Tvcnywmikrr/100 WBC (Bld)66.3 %NormalProMedica Lynn HospitalComment on above:Performed By: #### CBCA, CMP, LIVR, , 2776-04 ####[facility] ([id number])[address], [address], [place] [address]Ozajiwbv mean volume (Bld) [Entitic vol]6.8 fLLow7-12[facility] HospitalComment on above:Performed By: #### CBCA, CMP, LIVR, , 2776-04 ####[facility] ([id number])[address], [address] [place] [address]Ieegposkf (Bld) [#/Vol]87 10*3/xIMwm655-289HkdCuvpvf Lynn HospitalComment on above:Performed By: #### CBCA, CMP, LIVR, , 2776-04 ####[facility] ([id number])[address], [address] [place] [address] 265[address]AHJ COUNT2.56 X10E12/LLow 3.80-5.20[facility] HospitalComment on above:Performed By: #### CBCA, CMP, LIVR, , 2776-04 ####[facility] ([id number])[address], [address], [place] [address]MNA (Bld) [#/Vol]4.8 10*3/uLNormal4.0-11.0 [facility] HospitalComment on above:Performed By: #### CBCA, CMP, LIVR, , 2776-04 ####[facility] ([id number])[address], [address], [place] [address]SWAJAELFODRFT METABOLIC PANELon 54-39-8257Uqtxcsz [Mass/Vol]2.8 g/dLLow3.2-5.3[facility] HospitalComment on above:Performed By: #### CBCA, CMP, LIVR, , 2776-04 ####[facility] ([id number])[address], [address], [place] [address]RUC [Catalytic activity/Vol]76 U/WKdxmer36-190PjlTrjlng Lynn HospitalComment on above: Performed By: #### CBCA, CMP, LIVR, , 2776-04 ####[facility] ([id number])[address], [address], [place] [address]FLB [Catalytic activity/Vol]4 U/LNormal0-31ProMedOhio[facility] HospitalComment on above:Performed By: #### CBCA, CMP, LIVR, , 2776-04 ####[facility] ([id number])[address], [address], [place] [address]Gqkmk gap [Moles/Vol]9 mmol/LNormal5-15[facility] HospitalComment on above:Performed By: #### CBCA, CMP, LIVR, , 2776-04 ####[facility] ([id number])[address], [address], [place] [address]Qbxnptasv By: #### ELEC, ####[facility] ([id number])[address], [address], [place] [address]FSV [Catalytic activity/Vol]15 U/LNormal0-41Pro[facility] HospitalComment on above:Performed By: #### CBCA, CMP, LIVR, , 2776-04 ####[facility] ([id number])[address], [address], [place] [address]Hoegjtxbu [Mass/Vol]1.5 mg/dLHigh0.3-1.2PSalem [facility] Hospital HospitalComment on above:Performed By: #### CBCA, CMP, LIVR, , 2776-04 ####[facility] ([id number])[address], [address], [place] [address]Xpnalsq [Mass/Vol]8.5 mg/dLNormal8.5-10.5PSalem City Hospital HospitalComment on above: Performed By: #### CBCA, CMP, LIVR, , 2776-04 ####[facility] ([id number])[address] [address], [place] [address]SF9 [Moles/Vol]26 mmol/XTtnnlz44-18SgmLfosln [place] HospitalComment on above:Performed By: #### CBCA, CMP, LIVR, , 2776-04 ####[facility] ([id number])[address] [address], [place] [address]Iiwnhnnfgn [Mass/Vol]0.90 mg/dLNormal0.40-1.00Pro[facility] HospitalComment on above:Result Comment: METHOD TRACEABLE TO IDMS STANDARDPerformed By: #### CBCA, CMP, LIVR, , 2776-04 ####[facility] ([id number])[address] [address], [place] [address]MUG/1.73 sq M.predicted among non-blacks MDRD (S/P/Bld) [Vol rate/Area]73 mL/min/{1.73_m2}Normal>59[facility] HospitalComment on above: Result Comment: Reported eGFR is based on theCKD-EPI 2020 equation that doesnot use a race coefficient.Performed By: #### NAMITA CMP, LIVR, , 2776-04 ####[facility] ([id number])[address], [address], [place] [address]Ilkcqka [Mass/Vol]79 mg/pWWhgrmq54-56QioHrjjaf [place] HospitalComment on above:Performed By: #### NAMITA, CMP, LIVR, , 2776-04 ####[facility] ([id number])[address], [address] [place] [address]Uynufkdth [Moles/Vol]4.0 mmol/LNormal3.5-5.0Pro[facility] HospitalComment on above: Performed By: #### NAMITA CMP, LIVR, , 2776-04 ####[facility] ([id number])[address], [address], [place] [address]Aagflpm [Mass/Vol]5.0 g/dLLow6.0-8.0Pro[facility] HospitalComment on above:Performed By: #### NAMITA CMP, LIVR, , 2776-04 ####[facility] ([id number])[address], [address], [place] [address]Vtxn nitrogen [Mass/Vol]7 mg/dLNormal5-27 [facility] HospitalComment on above:Performed By: #### CBCChristiano, CMP, LIVR, , 2776-04 ####[facility] ([id number])[address], [address], [place] [address]Wcqvupem [Moles/Vol]105 mmol/YGgkzvm48-265AgjXqibqq [place] HospitalComment on above:Performed By: #### CBCA, CMP, LIVR, , 2776-04 ####[facility] ([id number])[address], [address], [place] [address]Hspghlqlz By: #### ELEC, ####[facility] ([id number])[address], NRBYZ985JWUQFM, [place] [address]Gucitm [Moles/Vol]140 mmol/TBemyrv865-035DtiFosfni Lynn HospitalComment on above:Performed By: #### CBCA, CMP, LIVR, , 2776-04 ####[facility] ([id number])[address], [address], [place] [address]Jckptupnq By: #### ELEC, ####[facility] ([id number])[address], [address], [place] [address]Tnzrbmp.ionized (Bld) [Mass/Vol]on 74-64-7225UQIHAWB CALCIUM 4.9 mg/dLNormal4.5-5.3[facility] HospitalComment on above:Performed By: #### 23522-0, 17513-5 ####[facility] ([id number])[address], [address], [place] [address]GSIMQMWCUKMQba 78-79-1749Jpopp gap [Moles/Vol]10 mmol/LNormal5-15[facility] HospitalComment on above: Performed By: #### ELEC, , 2776-04 ####[facility] ([id number])[address], [address], [place] [address]Rbcnuehc [Moles/Vol]106 mmol/ZZtpjfd96-149TboSbjmii [facility] HospitalComment on above:Performed By: #### ELEC, , 2776-04 ####[facility] ([id number])[address], [address], [place] [address]FJ2 [Moles/Vol]25 mmol/VHkrpwm26-83WalNikclw [facility] HospitalComment on above:Performed By: #### ELEC, , 2777-1 ####[facility] ([id number])[address], [address], [place] [address]Xnqrgvzzl [Moles/Vol]4.1 mmol/LNormal3.5-5.0[facility] Comment on above:Performed By: #### ELEC, , 2776- ####[facility] ([id number])[address], [address], [place] [address]Theizktwq By: #### ELEC, ####[facility] ([id number])[address], CKSNK530EHFKHZ, [place] [address]Fggxrq [Moles/Vol]141 mmol/ASssgjh399-557MolOgfeqi [facility] HospitalComment on above:Performed By: #### ELEC, , 2776-04 ####[facility] ([id number])[address], [address], [place] [address]Gmieo gap [Moles/Vol]10 mmol/LNormal5-15[facility] HospitalComment on above:Performed By: #### ELEC, ####[facility] ([id number])[address], NSSPO789CGWNIQ, [place] [address]SA2 [Moles/Vol]25 mmol/L Jfbqjh88-58MmsWswbdx [facility] HospitalComment on above:Performed By: #### ELEC, ####[facility] ([id number])[address], [address], [place] [address]Uewjkgbmq [Moles/Vol]4.2 mmol/LNormal3.5-5.0[facility] HospitalComment on above:Performed By: #### ELEC, ####[facility] ([id number])[address], NDVSV187[place], [place] [address]Zotevnfz [Moles/Vol]104 mmol/GHjwdwo70-801DunUnuadi [facility] HospitalComment on above: Performed By: #### ELEC, ####[facility] ([id number])[address], DKTWC851PWWLVV, [place] [address]HZ8 [Moles/Vol]27 mmol/L Ulzjqc71-36LneQwopwj [facility] HospitalComment on above:Performed By: #### ELEC, ####[facility] ([id number])[address], [address], [place] [address]Sdddq gap [Moles/Vol]10 mmol/LNormal5-15[facility] HospitalComment on above:Performed By: #### ELEC, ####[facility] ([id number])[address], RNNWJ562[place], [place] [address]Srlieqtj [Moles/Vol]105 mmol/CPzpntz61-314QgkXnjtun [facility] HospitalComment on above: Performed By: #### ELEC, ####[facility] ([id number])[address], JVCDR897[place]DP, [place] [address]ZE2 [Moles/Vol]25 mmol/L Mizqqr18-74TkqKxwdzi [facility] HospitalComment on above:Performed By: #### ELEC, ####[facility] ([id number])[address], [address], [place] [address]Engixlkjt [Moles/Vol]3.9 mmol/LNormal3.5-5.0[facility] HospitalComment on above:Performed By: #### ELEC, ####[facility] ([id number])[address], IGGWY438CLBWZF, [place] [address]Ieiypd [Moles/Vol]140 mmol/TRscqif466-983BctYqihsx Lynn HospitalComment on above: Performed By: #### ELEC, ####[facility] ([id number])[address], XAOIN281KHMWMX, [place] [address]UHUFM PANELon 06-17-2024 Bilirubin.direct [Mass/Vol]0.7 mg/dLHigh0.0-0.4[facility] HospitalComment on above:Performed By: #### CBCA, CMP, LIVR, , 2771 ####[facility] ([id number])[address], [address], [place] [address]BCFVOIANCzo 15-47-8915Ooiagdymz [Mass/Vol]2.3 mg/dLNormal1.8-2.6[facility] Comment on above:Performed By: #### ELEC, , 2776-04 ####[facility] ([id number])[address], [address], [place] [address]Zivabvuzz [Mass/Vol]2.0 mg/dLNormal1.8-2.6[facility] HospitalComment on above: Performed By: #### CBCA, CMP, LIVR, , 1 ####[facility] ([id number])[address], [address], [place] [address]Knjnwcplg By: #### ELEC, ####[facility] ([id number])[address], [address], [place] [address]Vwmzpjsly [Mass/Vol]1.8 mg/dLNormal1.8-2.6[facility] HospitalComment on above:Performed By: #### ELEC, ####[facility] ([id number])[address], ZKSXN269FIFPWW, [place] [address]Uzozafzpm [Mass/Vol]2.1 mg/dLNormal1.8-2.6[facility] HospitalComment on above: Performed By: #### ELEC, ####[facility] ([id number])[address], TWBJL007BQKFMK, [place] [address]Uuxxqxoal By: #### CBCA, CMP, LIVR, , 2776-04 ####[facility] ([id number])[address], [address], [place] [address]Srimlqgqs Ionized ISE (Bld) [Moles/Vol]on 43-06-3858Stltlzdpa [Moles/Vol]0.63 mmol/LNormal0.45-0.74[facility] HospitalComment on above:Result Comment: NEW REFERENCE RANGEPerformed By: #### 77744-8, 90856-8 ####[facility] ([id number])[address] [address], [place] [address]SWFDGUNQEQsn 57-78-3421Ldkilgizf [Mass/Vol]2.1 mg/dLLow 2.4-4.9[facility] HospitalComment on above:Performed By: #### ELEC, , 2776-04 ####[facility] ([id number])[address] [address] [place] [address]Yemmgobpd [Mass/Vol]2.8 mg/dLNormal2.4-4.9[facility] HospitalComment on above:Performed By: #### CBCA, CMP, LIVR, , 2776-04 ####[facility] ([id number])[address] [address] [place] [address]GEFRMVY AND INRon 13-22-1798YQT Coag (PPP) [Relative time]1.2 {INR}Normal 0.9-1.2[facility] HospitalComment on above:Performed By: #### PINR, 49556- 9 ####[facility] ([id number])[address], [address] [address]EO Coag (PPP) [Time]13.3 sHigh9.8-13.2[facility]Ohio[facility] HospitalComment on above:Performed By: #### HUDSON, 66166-2 ####[facility] ([id number])[address] [address]BRP Coag (PPP) [Relative time]1.2 {INR}Normal0.9-1.2ProMedOhio[facility] HospitalComment on above:Performed By: #### HUDSON, 85155-7 ####[facility] ([id number])[address] [address]GT Coag (PPP) [Time]13.9 sHigh9.8-13.2 ProMTriHealth [facility] HospitalComment on above:Performed By: #### HUDSON, 53414-8 ####[facility] ([id number])[address] [address]Tnrdtpnbgn [Mass/Vol]on 02-09-5066GKXQZQNPSG83.8 ug/mLNormal5.0-40.[address] [facility] HospitalComment on above:Result Comment: Peak 30-40 ug/mLTrough 5-20 ug/ml Performed By: #### 36161-9 ####[facility] ([id number])[address], [facility] [address], [place] [address]SM ABD NG TUBE PLACEMENT 1 VIEWon 10-29-3904JC ABD NG TUBE PLACEMENT 1 VIEWNormalProMedica Pomerene HospitalXR CHEST 1 VWon 01-87-4749NB CHEST 1 VWNormalProMedica Pomerene HospitalaPTT Coag (PPP) [Time]on 97-83-2531eMDH Coag (Bld) [Time]31 hTwvssv39-36ZteSomkgb Lynn HospitalComment on above: Performed By: #### HUDSON, 47438-8 ####[facility] ([id number])[address], TBDRS298KNRQQU, [place] [address]hJVS Coag (Bld) [Time]33 s Cqiyvm46-87JyxBtuwqu [place] HospitalComment on above:Performed By: #### HUDSON, 04812-0 ####[facility] ([id number])[address], [address], [place] [address]VXGGODGD BLOOD GASon 34-67-6292XOEJL'S TESTNormalProMedica Phoenix HospitalComment on above:Performed By: #### ABG ####[facility] ([id number])[address] [place], [place] [address]Rskv excess Calc (Bld) [Moles/Vol]0.0 mmol/LNormal0.0-2.0[facility] HospitalComment on above: Performed By: #### ABG ####[facility] ([id number])[address] [place], [place] [address]Yykx hasedelvris08.6 [degF]Rifuks03.0ProCincinnati Children'S Hospital Medical Centerca Phoenix HospitalComment on above:Performed By: #### ABG ####[facility] ([id number])[address] [place], [place] [address]EFM4 (Bld) [Moles/Vol]23.5 mmol/L Gqvjcz90-21DjlUlrcqd Lynn HospitalComment on above:Performed By: #### ABG ####[facility] ([id number])[address] [place] [address] INSP. O2 CONC.40 %NormalProMedica Phoenix HospitalComment on above:Performed By: #### ABG ####[facility] ([id number])[address] [place], [place] [address]Zdfogm (Bld) [Partial pressure]66 mm[Hg]Wtg62-075UarZtoyqi [facility] Comment on above:Performed By: #### ABG ####[facility] ([id number])[address] [place], [place] [address]Hsoemk saturation in Blood94.0 % Normal>90ProMercy Health Clermont HospitalComment on above:Performed By: #### ABG ####[facility] ([id number])[address] [place] [address] OXYGEN SOURCEVentNoalAultman Orrville HospitalComment on above:Performed By: #### ABG ####[facility] ([id number])[address] [place], [place] [address]VXK399.6 FUQRWts16-00BteYqdapfMercy Health Clermont HospitalComment on above:Performed By: #### ABG ####[facility] ([id number])[address] [place], [place] [address]gK (Bld)7.440 [pH]Normal7.350-7.450ProMercy Health Clermont HospitalComment on above:Performed By: #### ABG ####[facility] ([id number])[address] [place], [place] [address]CJOKMY SITEALineNoalAultman Orrville HospitalComment on above:Performed By: #### ABG ####[facility] ([id number])[address] [place], [place] [address]LCMMKO TYPEARTERIALNormalAultman Orrville Hospital Comment on above:Performed By: #### ABG ####[facility] ([id number])[address] [place], [place] [address]NNX AND AUTO DIFFon 06-16-2024 ABSOLUTE BASOPHIL0.1 X10E9/LNormal0.0-0.2[facility]ome[facility] HospitalComment on above:Performed By: #### CBCA, CMP, LIVR, 56267-0, 2777-1 ####[facility] ([id number])[address], [address], [place] [address]NGPUEWNE NEUTROPHIL2.4 X10E9/LNormal1.5-6.6[facility] HospitalComment on above: Performed By: #### CBCA, CMP, LIVR, , 2776-04 ####[facility] ([id number])[address], [address], [place] [address]Hfarsvetz/100 WBC (Bld)1.2 %NormalProMedica Lynn HospitalComment on above:Performed By: #### CBCA, CMP, LIVR, , 2776-04 ####[facility] ([id number])[address] [address] [place] [address]Eqtjgobscad (Bld) [#/Vol] 0.1 10*3/uLNormal0.0-0.4ProCincinnati Children'S Hospital Medical Centerca Phoenix HospitalComment on above:Performed By: #### CBCA, CMP, LIVR, , 2776-04 ####[facility] ([id number])[address] [address], [place] [address]Yiqrhdoepmf/100 WBC (Bld) 2.7 %NormalProMedica Phoenix HospitalComment on above:Performed By: #### CBCA, CMP, LIVR, , 2776-04 ####[facility] ([id number])[address] [address], [place] [address]Lmwrqfxhqpc distribution width (RBC) [Ratio] 17.3 %High11.5-15.0ProMedica Lynn HospitalComment on above:Performed By: #### CBCA, CMP, LIVR, , 2776-04 ####[facility] ([id number])[address] [address], [place] [address]Acfmllxtok (Bld) [Volume fraction]23.9 %Foi93-72QirZzrjwh Lynn HospitalComment on above:Performed By: #### CBCA, CMP, LIVR, , 2776-04 ####[facility] ([id number])[address], [place] [address]Yllsdxrjmc (Bld) [Mass/Vol] 8.1 g/dLLow11.7-15.5ProMedOhio[facility] HospitalComment on above:Performed By: #### CBCA, CMP, LIVR, , 2776-04 ####[facility] ([id number])[address], [address], [place] [address]Wofpzoqzudz (Bld) [#/Vol] 1.0 10*3/uLNormal1.0-3.5ProMedOhioHealth [facility]ide Methodist Hospital HospitalComment on above:Performed By: #### CBCA, CMP, LIVR, , 2776-04 ####[facility] ([id number])[address], [address], [place] [address]Qxsudloptcp/100 WBC (Bld) 23.8 %NormalProMercy Health [facility] Hospital HospitalComment on above:Performed By: #### CBCA, CMP, LIVR, , 2776-04 ####[facility] ([id number])[address], [address], [place] [address]HLI (RBC) [Entitic mass]32.0 lbFcwgju82-30 [facility] HospitalComment on above:Performed By: #### CBCA, CMP, LIVR, , 2776-04 ####[facility] ([id number])[address], [address], [place] [address]HWFC (RBC) [Mass/Vol]33.9 g/yZXegmkf68-25LhoNgamuu Phoenix HospitalComment on above:Performed By: #### CBCA, CMP, LIVR, , 2777-1 ####[facility] ([id number])[address], [address], [place] [address]LMB (RBC) [Entitic vol]94 hHIqdxzf71-604FreGmmpnv Phoenix HospitalComment on above:Performed By: #### CBCA, CMP, LIVR, , 2776-04 ####[facility] ([id number])[address], [address], [place] [address]Sxpgxejgm (Bld) [#/Vol]0.6 10*3/uLNormal0-0.9[facility] Comment on above:Performed By: #### CBCA, CMP, LIVR, , 2776-04 ####[facility] ([id number])[address], [address] [place] [address] Monocytes/100 WBC (Bld)13.8 %NormalProMedica Phoenix HospitalComment on above: Performed By: #### CBCA, CMP, LIVR, , 2776-04 ####[facility] ([id number])[address], [address], [place] [address]Frgjkrhtcxb/100 WBC (Bld)58.5 %NormalProCincinnati Children'S Hospital Medical Centerca [place] HospitalComment on above:Performed By: #### CBCA, CMP, LIVR, , 2776-04 ####[facility] ([id number])[address], [address] [place] [address]Miepvcxy mean volume (Bld) [Entitic vol]7.3 fLNormal7-12ProMedica Lynn HospitalComment on above:Performed By: #### CBCA, CMP, LIVR, , 2776-04 ####[facility] ([id number])[address], [address], [place] [address]Ebzamjmpa (Bld) [#/Vol]99 10*3/bMXli013-440CceCyqqir Lynn HospitalComment on above:Performed By: #### CBCA, CMP, LIVR, , 2776-04 ####[facility] ([id number])[address], [address] [place] [address]DZR COUNT2.53 X10E12/LLow 3.80-5.20Pro[facility]ica Lynn HospitalComment on above:Performed By: #### CBCA, CMP, LIVR, , 2776-04 ####[facility] ([id number])[address], [address] [place] [address]DHM (Bld) [#/Vol]4.2 10*3/uLNormal4.0-11.0 [facility] HospitalComment on above:Performed By: #### CBCA, CMP, LIVR, , 2776-04 ####[facility] ([id number])[address], [address] [place] [address]KWGBSSKEALFOQ METABOLIC PANELon 99-19-6266TAV [Catalytic activity/Vol]74 U/AFodcok71-768ZfuPysbhw Phoenix HospitalComment on above:Performed By: #### CBCA, CMP, LIVR, , 2776-04 ####[facility] ([id number])[address], [address], [place] [address]Peyaf gap [Moles/Vol]11 mmol/LNormal5-15ProMedica Lynn HospitalComment on above: Performed By: #### CBCA, CMP, LIVR, , 1 ####[facility] ([id number])[address], [address] [place] [address]MNT [Catalytic activity/Vol]14 U/LNormal0-41ProMedica Lynn HospitalComment on above:Performed By: #### CBCA, CMP, LIVR, , 2776-04 ####[facility] ([id number])[address], [address], [place] [address]Xkmkygd [Mass/Vol]8.6 mg/dL Normal8.5-10.5PGuernsey Memorial HospitalComment on above:Performed By: #### CBCA, CMP, LIVR, , 2776-04 ####[facility] ([id number])[address], [address], [place] [address]Feifuwbm [Moles/Vol]103 mmol/HBtdnvo10-856 [facility] HospitalComment on above:Performed By: #### CBCA, CMP, LIVR, , 2776-04 ####[facility] ([id number])[address] [address], [place] [address]HU6 [Moles/Vol]24 mmol/SRzyhwb73-30WgaXmucxfGuernsey Memorial HospitalComment on above:Performed By: #### CBCA, CMP, LIVR, , 2776-04 ####[facility] ([id number])[address] [address], [place] [address]Oazoicgbbt [Mass/Vol]1.31 mg/dLHigh0.40-1.00[facility] Comment on above:Result Comment: METHOD TRACEABLE TO IDMS STANDARDPerformed By: #### CBCA, CMP, LIVR, , 2776-04 ####[facility] ([id number])[address] [address], [place] [address]BLW/1.73 sq M.predicted among non-blacks MDRD (S/P/Bld) [Vol rate/Area]46 mL/min/{1.73_m2}Low>59 [facility] HospitalComment on above:Result Comment: Reported eGFR is based on theCKD-EPI 2020 equation that doesnot use a race coefficient.Performed By: #### CBCA, CMP, LIVR, , 2776-04 ####[facility] ([id number])[address], [address] [place] [address]Imdqvlq [Mass/Vol]87 mg/dL Lsrlob40-23AzxXhyyofMercy Health Clermont HospitalComment on above:Performed By: #### CBCA, CMP, LIVR, , 2776-04 ####[facility] ([id number])[address], [address] [address]Nwxgkis [Mass/Vol]5.1 g/dLLow6.0-8.[address] [facility] HospitalComment on above:Performed By: #### CBCA, CMP, LIVR, , 2776-04 ####[facility] ([id number])[address], [address], [place] [address]Omzc nitrogen [Mass/Vol]14 mg/dLNormal5-27ProMercy Health Clermont HospitalComment on above:Performed By: #### CBCA, CMP, LIVR, , 2776-04 ####[facility] ([id number])[address], [address], [place] [address]Tqmcrqg [Mass/Vol]2.9 g/dLLow3.2-5.3PGuernsey Memorial Hospital Comment on above:Performed By: #### CBCA, CMP, LIVR, , 2776-04 ####[facility] ([id number])[address], [address], [place] [address] Performed By: #### LIVR ####[facility] ([id number])[address], [address], [place] [address]JAP [Catalytic activity/Vol]4 U/LNormal0-[address] [facility] HospitalComment on above:Performed By: #### CBCA, CMP, LIVR, , 2776-04 ####[facility] ([id number])[address], [address], [place] [address]Jpvveahcd By: #### LIVR ####[facility] ([id number])[address], [address], [place] [address]Tpuithixy [Mass/Vol]1.4 mg/dLHigh0.3-1.2[facility] Lynn HospitalComment on above:Performed By: #### CBCA, CMP, LIVR, , 2776-04 ####[facility] ([id number])[address], [address], [place] [address]Haazpyvcb By: #### LIVR ####[facility] ([id number])[address], [address], [place] [address]TONYYRPDBEZOpe 22-05-2304Jwfxb gap [Moles/Vol]8 mmol/LNormal5-15[facility] HospitalComment on above:Performed By: #### ELEC, , 2776-04 ####[facility] ([id number])[address], [address], [place] [address]Zoehloxp [Moles/Vol]105 mmol/KXccqxl98-669DvbYjmyua Lynn HospitalComment on above:Performed By: #### ELEC, , 2776-04 ####[facility] ([id number])[address], [address], [place] [address]BY8 [Moles/Vol]25 mmol/AYganix27-21KyoSgysbk Lynn HospitalComment on above:Performed By: #### ELEC, , 2776-04 ####[facility] ([id number])[address], [address], [place] [address]Fgossifwd [Moles/Vol]3.9 mmol/LNormal3.5-5.0 [facility] HospitalComment on above:Performed By: #### ELEC, , 2776-04 ####[facility] ([id number])[address], [address], [place] [address]Pquzfyiuw By: #### CBCA, CMP, LIVR, , 2776-04 ####[facility] ([id number])[address], [address], [place] [address]Ggkgys [Moles/Vol]138 mmol/BSprakg991-066YuwZdossi Lynn HospitalComment on above:Performed By: #### ELEC, , 2776-04 ####[facility] ([id number])[address], [address], [place] [address]Jmxdrnhqh By: #### CBCA, CMP, LIVR, , 2776-04 ####[facility] ([id number])[address], [address], [place] [address]Dkggg gap [Moles/Vol]7 mmol/LNormal5-15[facility] HospitalComment on above:Performed By: #### ELEC, ####[facility] ([id number])[address], [address], [place] [address]Siubelow [Moles/Vol]105 mmol/IXqsomc69-768JopMeamwx Lynn HospitalComment on above:Performed By: #### ELEC, ####[facility] ([id number])[address], [place], [place] [address]WA1 [Moles/Vol]26 mmol/BZrhcxz74-49JkuNytxob Lynn HospitalComment on above:Performed By: #### ELEC, ####[facility] ([id number])[address], [address], [place] [address]Domnmrxef [Moles/Vol]3.9 mmol/LNormal3.5-5.0[facility] HospitalComment on above:Performed By: #### ELEC, ####[facility] ([id number])[address], [place]AN[place], [place] [address]Iauobz [Moles/Vol]138 mmol/HYgpddr353-830ZmgPwzwml Lynn HospitalComment on above: Performed By: #### ELEC, 69502-4 ####[facility] ([id number])[address], [place], [place] [address]JKQQQ PANELon 51-37-4450AAF [Catalytic activity/Vol]79 U/BHqlado97-512MgkAjnxgh Lynn HospitalComment on above:Performed By: #### LIVR ####[facility] ([id number])[address], [address], [place] [address]QJH [Catalytic activity/Vol]15 U/LNormal0-41 [facility] HospitalComment on above:Performed By: #### LIVR ####[facility] ([id number])[address], [address] [place] [address] Bilirubin.direct [Mass/Vol]0.7 mg/dLHigh0.0-0.4Pro[facility] HospitalComment on above:Performed By: #### CBCA, CMP, LIVR, 12420-4, 2777-1 ####[facility] ([id number])[address], [address], [place] [address]Wdkgxtyyr By: #### LIVR ####[facility] ([id number])[address], [address], [place] [address]Yaajbmz [Mass/Vol]5.2 g/dLLow6.0-8.0[facility] Comment on above:Performed By: #### LIVR ####[facility] ([id number])[address], [address], [place] [address]OSQBCIACAoe 06-16-2024 Magnesium [Mass/Vol]1.8 mg/dLNormal1.8-2.6[facility] HospitalComment on above:Performed By: #### ELEC, , 2776-04 ####[facility] ([id number])[address], [address], [place] [address]Gazsoztrz [Mass/Vol]1.9 mg/dLNormal1.8-2.6ProCincinnati Children'S Hospital Medical Centerca [facility] HospitalComment on above:Performed By: #### ELEC, ####[facility] ([id number])[address], [address], [place] [address]DOIBFLECFQdo 99-21-7015Nymsvjgma [Mass/Vol]2.3 mg/dLLow 2.4-4.9ProCincinnati Children'S Hospital Medical Centerca Phoenix HospitalComment on above:Performed By: #### ELEC, , 2776-04 ####[facility] ([id number])[address], [address], [place] [address]Wfbukymsj [Mass/Vol]3.1 mg/dLNormal2.4-4.9ProMer[facility] Health [facility] HospitalComment on above:Performed By: #### CBCA, CMP, LIVR, , 2776-04 ####[facility] ([id number])[address], [address], [place] [address]LYXRUFO AND INRon 50-94-6545QT Coag (PPP) [Time]14.5 sHigh9.8-13.2 [facility] HospitalComment on above:Performed By: #### PINR, 61441-9 ####[facility] ([id number])[address], [place]WWP[place], [place] [address]YRH Coag (PPP) [Relative time]1.3 {INR}High0.9-1.2[facility] Comment on above:Performed By: #### PINR, 36799-6 ####[facility] ([id number])[address], [place], [place] [address]GD Coag (PPP) [Time]15.1 sHigh9.8-13.2[facility] HospitalComment on above:Performed By: #### HUDSON, 68119-8 ####[facility] ([id number])[address], [address] [place] [address]Batenbnkge [Mass/Vol]on 75-03-5758GJXLWADPYV96.8 ug/mLNormal 5.0-40.0[facility] HospitalComment on above:Result Comment: Peak 30-40 ug/mLTrough 5-20 ug/ml Performed By: #### 24608-5 ####[facility] ([id number])[address], [address] [place] [address]PX CHEST 1 VWon 79-69-4686NY CHEST 1 VWNormalProMediOhioHealth Doctors Hospital HospitalaPTT Coag (PPP) [Time]on 26-66-3376dIEY Coag (Bld) [Time]33 s Trgpjd88-43SolNlxely [place] HospitalComment on above:Performed By: #### HUDSON, 82444-3 ####[facility] ([id number])[address], [address] [place] [address]mRXO Coag (Bld) [Time]32 aNyfenx77-45DgnEmeksl Phoenix HospitalComment on above:Performed By: #### HUDSON, 86419-6 ####[facility] ([id number])[address], [place]XRYP705[place]QRPK[place], [place] [address]HCZUHVMK BLOOD GASon 88-64-4596FZDXC'S TESTNormalProMercy Health [facility] Hospital HospitalComment on above: Performed By: #### ABG ####[facility] ([id number])[address] [place], [place] [address]FHCM,DEFICIT6.0 MMOL/LHigh0.0-2.0[facility] Comment on above:Performed By: #### ABG ####[facility] ([id number])[address] [place], [place] [address]Wkly tdspxrwylix39.6 [degF]Normal 37.0Pro[facility] HospitalComment on above:Performed By: #### ABG ####[facility] ([id number])[address], [place] [address]ZVR2 (Bld) [Moles/Vol]17.9 mmol/OAcl42-75CxjGcfvnl Lynn HospitalComment on above: Performed By: #### ABG ####[facility] ([id number])[address] [place], [place] [address]ZQRA. O2 CONC.40 %NormalProMedica Lynn HospitalComment on above:Performed By: #### ABG ####[facility] ([address] [place] [address])[address] [facility], [place] [address]Tetyvt (Bld) [Partial pressure]96 mm[Hg]Emxcao38-323 [facility] HospitalComment on above:Performed By: #### ABG ####[facility] ([id number])[address] [place] [address]Nswkrs saturation in Blood98.0 %Normal>90[facility] HospitalComment on above: Performed By: #### ABG ####[facility] ([id number])[address], [place] [address]IHYBFG SOURCEVentNormalProMedica Lynn HospitalComment on above:Performed By: #### ABG ####[facility] ([id number])[address], [place] [address]HRE625.0 WWPQSti38-85RrwMleara Lynn HospitalComment on above:Performed By: #### ABG ####[facility] ([id number])[address] [place], [place] [address]sY (Bld)7.414 [pH]Normal7.350-7.450[facility] HospitalComment on above:Performed By: #### ABG ####[facility] ([id number])[address] [place], [place] [address]MDJGAB SITEALineNormalProMedica Phoenix HospitalComment on above:Performed By: #### ABG ####[facility] ([id number])[address] [place], [place] [address]DCJXHT TYPEARTERIAL NormalProMedica Phoenix HospitalComment on above:Performed By: #### ABG ####[facility] ([id number])[address] [place] [address] BLOOD CULTUREon 90-95-3150Emkmpohj identified Aer cx Nom (Bld)CULTURE RESULTS NO GROWTH 5 DAYSNormalProMedica Phoenix HospitalCBC AND AUTO DIFFon 06-15-2024 ABSOLUTE BASOPHIL0.0 X10E9/LNormal0.0-0.2[facility] HospitalComment on above:Performed By: #### RENA, LIVR, , 2776-04, CBCA ####[facility] ([id number])[address], [address], [place] [address]TGRERMOL NEUTROPHIL2.7 X10E9/LNormal1.5-6.6[facility] HospitalComment on above: Performed By: #### RENA, LIVR, , 2776-, CBCA ####[facility] ([id number])[address], [address], [place] [address]Vhmjjgvmv/100 WBC (Bld)1.2 %NormalProMedica Phoenix HospitalComment on above:Performed By: #### RENA, LIVR, , 2776-, CBCA ####[facility] ([id number])[address], [address], [place] [address]Cmgumtxisgy (Bld) [#/Vol] 0.0 10*3/uLNormal0.0-0.4ProMer[facility] Health [facility] HospitalComment on above:Performed By: #### RENA, LIVR, , 2776-04, CBCA ####[facility] ([id number])[address], [address], [place] [address]Rvktrpyztdb/100 WBC (Bld) 0.8 %NormalProCincinnati Children'S Hospital Medical Centerca Phoenix HospitalComment on above:Performed By: #### RENA, [facility], , 2776-04, CBCA ####[facility] ([id number])[address], [address], [place] [address]Ggqflgkgdej distribution width (RBC) [Ratio] 17.3 %High11.5-15.0ProMer[facility] Health [facility] HospitalComment on above:Performed By: #### RENA, LIVR, , 2776-04, CBCA ####[facility] ([id number])[address], [address], [place] [address]Bngbtwrjmc (Bld) [Volume fraction]22.1 %Khx08-58AvtFablyd [place] HospitalComment on above:Performed By: #### RENA, LIVR, , 2776-04, CBCA ####[facility] ([id number])[address], [address], [place] [address]Vngguewpaa (Bld) [Mass/Vol] 7.6 g/dLLow11.7-15.5PSalem City Hospital HospitalComment on above:Performed By: #### RENA, LIVR, , 2776-04, CBCA ####[facility] ([id number])[address], [address], [place] [address]Fxuqolagulm (Bld) [#/Vol] 0.7 10*3/uLLow1.0-3.5[facility] HospitalComment on above:Performed By: #### CMP, LIVR, , 2776-04, CBCA ####[facility] ([id number])[address], [address] [place] [address]Sfdokkqarng/100 WBC (Bld) 19.1 %NormalProMercy Health [facility] Hospital HospitalComment on above:Performed By: #### CMP, LIVR, , 2776-04, CBCA ####[facility] ([id number])[address], [address] [place] [address]QQI (RBC) [Entitic mass]32.9 pzRyizdu30-20 [facility] HospitalComment on above:Performed By: #### CMP, LIVR, , 2776-04, CBCA ####[facility] ([id number])[address], [address] [place] [address]TTMB (RBC) [Mass/Vol]34.6 g/mLLkalbr18-92OcnSohsyl [place] HospitalComment on above:Performed By: #### CMP, LIVR, , 2776-04, CBCA ####[facility] ([id number])[address], [address] [place] [address]ZVM (RBC) [Entitic vol]95 cXNhqsol98-816XdeWzbbvp [place] HospitalComment on above:Performed By: #### CMP, LIVR, , 2776-04, CBCA ####[facility] ([id number])[address], [address] [place] [address]Sgniuqyaa (Bld) [#/Vol]0.3 10*3/uLNormal0-0.9ProMer[facility] HospitalComment on above: Performed By: #### CMP, LIVR, , 2777-1, CBCA ####[facility] ([id number])[address], [address], [place] [address]Uvukmhahs/100 WBC (Bld)7.7 %NormalProMedica Phoenix HospitalComment on above:Performed By: #### CMP, LIVR, , 2776-04, CBCA ####[facility] ([id number])[address], [address], [place] [address]Cstvcneobhx/100 WBC (Bld) 71.2 %NormalProMedica Phoenix HospitalComment on above:Performed By: #### CMP, LIVR, , 2776-04, CBCA ####[facility] ([id number])[address], [address], [place] [address]Xvmqaveo mean volume (Bld) [Entitic vol]7.1 fLNormal7-12[facility] HospitalComment on above:Performed By: #### CMP, LIVR, , 2776-04, CBCA ####[facility] ([id number])[address], [address], [place] [address]Jlrceartj (Bld) [#/Vol]93 10*3/kOHuz213-350 [facility] HospitalComment on above:Performed By: #### CMP, LIVR, , 2776-04, CBCA ####[facility] ([id number])[address], [address], [place] [address]WEL COUNT2.32 X10E12/LLow3.80-5.20[facility] Comment on above:Performed By: #### CMP, LIVR, , 2776-04, CBCA ####[facility] ([id number])[address], [address], [place] [address]LLE (Bld) [#/Vol]3.8 10*3/uLLow4.0-11.0[facility] HospitalComment on above: Performed By: #### CMP, LIVR, , 2776-04, CBCA ####[facility] ([id number])[address], [address], [place] [address]WDJBPSXIEFIUS METABOLIC PANELon 14-88-2654Abmyaod [Mass/Vol]3.3 g/dLNormal3.2-5.3[facility] HospitalComment on above:Performed By: #### CMP, LIVR, , 2776-04, CBCA ####[facility] ([id number])[address], [address], [place] [address]BNZ [Catalytic activity/Vol]80 U/TPytpxd69-342FigVqhame Lynn HospitalComment on above:Performed By: #### CMP, LIVR, , 2776-04, CBCA ####[facility] ([id number])[address], [address], [place] [address]QYH [Catalytic activity/Vol]6 U/LNormal0-31[facility] HospitalComment on above:Performed By: #### CMP, LIVR, , 2776-04, CBCA ####[facility] ([id number])[address], [address], [place] [address]Luggr gap [Moles/Vol]12 mmol/LNormal5-15[facility] HospitalComment on above:Performed By: #### CMP, LIVR, , 2776-04, CBCA ####[facility] ([id number])[address], [address], [place] [address]AIL [Catalytic activity/Vol]12 U/LNormal0-41[facility] HospitalComment on above:Performed By: #### CMP, LIVR, , 2776-04, CBCA ####[facility] ([id number])[address] [address], [place] [address]Nbiulziqc [Mass/Vol]2.0 mg/dLHigh0.3-1.2PSalem City Hospital HospitalComment on above:Performed By: #### RENA, LIVR, , 2776-04, CBCA ####[facility] ([id number])[address], [address], [place] [address]Xtqboru [Mass/Vol]8.7 mg/dL Normal8.5-10.5PSalem City Hospital HospitalComment on above:Performed By: #### RENA, LIVR, , 2776-04, CBCA ####[facility] ([id number])[address], [place] [address]Rwtdgdrp [Moles/Vol]100 mmol/JKoazbf31-071 ProMChillicothe VA Medical CenterComment on above:Performed By: #### RENA, LIVR, , 2776-04, CBCA ####[facility] ([id number])[address] [address], [place] [address]UC1 [Moles/Vol]22 mmol/KZhfzco66-47TcdBaxaas [place] [facility] Comment on above:Performed By: #### RENA, LIVR, , 2776-04, CBCA ####[facility] ([id number])[address] [address], [place] [address] Creatinine [Mass/Vol]2.42 mg/dLHigh0.40-1.00ProMediOur Lady of Mercy HospitalComment on above:Result Comment: METHOD TRACEABLE TO IDMS STANDARDPerformed By: #### RENA, LIVR, , 2776-04, CBCA ####[facility] ([id number])[address] [address], [place] [address]QPH/1.73 sq M.predicted among non-blacks MDRD (S/P/Bld) [Vol rate/Area]22 mL/min/{1.73_m2}Low>59Pro[facility] Comment on above:Result Comment: Reported eGFR is based on theCKD-EPI 2020 equation that doesnot use a race coefficient.Performed By: #### HAMIDA CHASE, , 2776-04, CBCA ####[facility] ([id number])[address], [place] [address]Btdljxe [Mass/Vol]98 mg/rEUmhkux88-89 [facility]ic[facility] HospitalComment on above:Performed By: #### REAN, LIVChristos, , 2776-04, CBCA ####[facility] ([id number])[address] [address], [place] [address]Dznbcwh [Mass/Vol]5.1 g/dLLow6.0-8.0[facility] HospitalComment on above:Performed By: #### RENA LIVChristos, , 2776-04, CBCA ####[facility] ([id number])[address] [address], [place] [address]Vvkseq [Moles/Vol]134 mmol/ITcvehf869-997MtrQejppd [place] HospitalComment on above:Performed By: #### HAMIDA CHASE, , 2776-04, CBCA ####[facility] ([id number])[address] [address], [place] [address]Udzx nitrogen [Mass/Vol]29 mg/dLHigh5-27[facility] HospitalComment on above:Performed By: #### RENA, LIVR, , 2776-04, CBCA ####[facility] ([id number])[address] [address] [place] [address]TNPHFIHSCNQMso 06-15-2024 CO2 [Moles/Vol]24 mmol/ZLiukhk43-48UybUhznix [place] HospitalComment on above: Performed By: #### ELEC, , 2776-04 ####[facility] ([id number])[address], [address], [place] [address]Ifaoocrxz [Moles/Vol]3.6 mmol/LNormal3.5-5.0[facility] HospitalComment on above:Performed By: #### ELEC, , 2776-04 ####[facility] ([id number])[address], [address], [place] [address]Svqfga [Moles/Vol]137 mmol/KNmzrtm933-125 [facility] HospitalComment on above:Performed By: #### ELEC, , 2776-04 ####[facility] ([id number])[address], [address], [place] [address]Ieixf gap [Moles/Vol]11 mmol/LNormal5-15[facility] HospitalComment on above:Performed By: #### ELEC, , 2776-04 ####[facility] ([id number])[address], [place] [address] Performed By: #### ELEC, , ####[facility] ([id number])[address], [address], [place] [address]Lvtprqox [Moles/Vol]102 mmol/SMvttpd97-105YujErrsul [facility] HospitalComment on above:Performed By: #### ELEC, , 2776-04 ####[facility] ([id number])[address], [address], [place] [address]Qysbfdlwn By: #### ELEC, , ####[facility] ([id number])[address], [place] [address]OF9 [Moles/Vol]23 mmol/VKneyrf38-74OyqFllmwf Lynn HospitalComment on above:Performed By: #### ELEC, , ####[facility] ([id number])[address], [address] [place] [address]Nqkcyz [Moles/Vol]136 mmol/RJexfgh109-213ZjdFaycol [place] HospitalComment on above:Performed By: #### ELEC, , ####[facility] ([id number])[address], [address] [place] [address]MOJey 20-63-9234Lzyzjqmlhp (Bld) [Volume fraction]22.7 %Sya64-02OvhKrjncj [facility] HospitalComment on above:Performed By: #### HH ####[facility] ([id number])[address] [address] [place] [address]Pcwekdxqxd (Bld) [Mass/Vol]7.7 g/dLLow11.7-15.5[facility] HospitalComment on above:Performed By: #### HH ####[facility] ([id number])[address] [address] [place] [address]HRFBY PANELon 94-23-4623Updjlggcl.direct [Mass/Vol]0.9 mg/dLHigh0.0-0.4[facility] HospitalComment on above:Performed By: #### CMP, LIVR, , 2776-04, CBCA ####[facility] ([id number])[address] [address] [place] [address]MGMDGHPFCjc 95-58-4779Lgunuoaiz [Mass/Vol]1.9 mg/dLNormal1.8-2.6[facility] HospitalComment on above:Performed By: #### ELEC, , 2776-04 ####[facility] ([id number])[address] [address], [place] [address]Liibkchua By: #### CMP, LIVR, , 2776-04, CBCA ####[facility] ([id number])[address] [address]Xdgwmfbuj [Mass/Vol]2.0 mg/dLNormal1.8-2.6[facility] HospitalComment on above: Performed By: #### ELEC, , 33[address]-0 ####[facility] ([id number])[address] [address]KWYBQPUEVBdn 06-15-2024 Phosphate [Mass/Vol]2.2 mg/dLLow2.4-4.9[facility] HospitalComment on above:Performed By: #### ELEC, , 2776-04 ####[facility] ([id number])[address], [address], [place] [address]Etymplxfs [Mass/Vol]3.8 mg/dLNormal2.4-4.9ProMedica Lynn HospitalComment on above:Performed By: #### CMP, LIVR, , 2776-04, CBCA ####[facility] ([id number])[address], [address] [address]YAAOSSCDEmp 06-15-2024 Potassium [Moles/Vol]3.8 mmol/LNormal3.5-5.0ProMedica Lynn HospitalComment on above:Performed By: #### 2823-3 ####[facility] ([id number])[address], [address], [place] [address]Xbhtheshv By: #### CMP, LIVR, , 2776-04, CBCA ####[facility] ([id number])[address], [address], [place] [address]Ntbjvhwrt By: #### ELEC, , ####[facility] ([id number])[address], [address], [place] [address]LSESLCH AND INRon 18-26-1849ZG Coag (PPP) [Time]15.2 sHigh9.8-13.2 [facility] Pomerene HospitalComment on above:Performed By: #### HUDSON, 84496-7 ####[facility] ([id number])[address], [id number], [place] [address]GOL Coag (PPP) [Relative time]1.3 {INR}High0.9-1.2P[facility] Comment on above:Performed By: #### HUDSON, 60210-3 ####[facility] ([id number])[address], [id number], [place] [address]JF Coag (PPP) [Time]15.3 sHigh9.8-13.2PGuernsey Memorial HospitalComment on above:Performed By: #### HUDSON, 60645-1 ####[facility] ([id number])[address], [address], [place] [address]Gaudbjywin [Mass/Vol]on 38-70-3374YMUHIVIWMD73.0 ug/mLNormal 5.0-40.0[facility] HospitalComment on above:Result Comment: Peak 30-40 ug/mLTrough 5-20 ug/ml Performed By: #### 97191-8 ####[facility] ([id number])[address], [address], [place] [address]IWVSGCKTYV74.4 ug/mLNormal5.0-40.0[facility] Comment on above:Result Comment: Peak 30-40 ug/mLTrough 5-20 ug/ml Performed By: #### ELEC, 43778-0, 03592-6 ####[facility] ([id number])[address] [facility], [address], [place] [address]YS CHEST 1 VWon 61-66-2471BG CHEST 1 VWNormalProMedica Pomerene HospitalaPTT Coag (PPP) [Time]on 77-90-8517tJMZ Coag (Bld) [Time]38 sHigh 26-37ProMedica Lynn HospitalComment on above:Performed By: #### PINChristos, 31132-6 ####[facility] ([id number])[address] [facility], [id number], [place] [address]INMKKCAX BLOOD GASon 05-44-2982BIRFS'S TESTPassNormalProMedica Lynn HospitalComment on above:Performed By: #### ABG ####[facility] ([id number])[address] [place], [place] [address]BYBK,DEFICIT8.0 MMOL/LHigh0.0-2.0 [facility] HospitalComment on above:Performed By: #### ABG ####[facility] ([id number])[address] [place], [place] [address]Flbr fwkxrsamwis02.6 [degF]Ggpwer63.0ProMedica Lynn HospitalComment on above: Performed By: #### ABG ####[facility] ([id number])[address] [place], [place] [address]XGB0 (Bld) [Moles/Vol]18.8 mmol/UDxm44-90EezIgchtn Lynn HospitalComment on above:Performed By: #### ABG ####[facility] ([id number])[address] [place], [place] [address]RFJU. O2 CONC.40 %NormalProMedica Lynn HospitalComment on above:Performed By: #### ABG ####[facility] ([id number])[address] [place], [place] [address]Vaqnti (Bld) [Partial pressure]118 mm[Hg]Lqcf83-243LkuSxeagn Phoenix HospitalComment on above:Performed By: #### ABG ####[facility] ([id number])[address] [place], [place] [address]Iozewb saturation in Blood98.0 %Normal>90ProMedica Phoenix HospitalComment on above:Performed By: #### ABG ####[facility] ([id number])[address] [place], [place] [address]LAIIVQ SOURCEVentNormalProMercy Health Kings Mills Hospital HospitalComment on above:Performed By: #### ABG ####[facility] ([address] [place] [address])[address] [place], [place] [address]YVE747.7 PYIALykt25-71 [facility] Phoenix HospitalComment on above:Performed By: #### ABG ####[facility] ([address] [place] [address])[address] [place], [place] [address]eX (Bld)7.223 [pH]Low7.350-7.450ProMercy Health Kings [facility] HospitalComment on above:Performed By: #### ABG ####[facility] ([address] [place] [address])[address] [place] [address] SAMPLE SITELRadNormalProCincinnati Children'S Hospital Medical Centerca Phoenix HospitalComment on above:Performed By: #### ABG ####[facility] ([address] [place] [address])[address] [facility], [place] [address]EPIPCM TYPEARTERIALNormalProCincinnati Children'S Hospital Medical Centerca Phoenix HospitalComment on above: Performed By: #### ABG ####[facility] ([id number])[address] [facility], [place] [address]GUHWB METABOLIC PANLon 48-85-6932Hxaux gap [Moles/Vol]10 mmol/LNormal5-15ProMedica Lynn HospitalComment on above:Performed By: #### PIPO, LIVR ####[facility] ([id number])[address] [address], [place] [address]Zxgkpav [Mass/Vol]8.0 mg/dLLow8.5-10.5Pro[facility] Phoenix HospitalComment on above:Performed By: #### BMP, LIVR ####[facility] ([id number])[address], [address], [place] [address]Glvmdhux [Moles/Vol]100 mmol/CEpxdjp18-862JxlBrnpyd Phoenix HospitalComment on above: Performed By: #### PIPO, LIVR ####[facility] ([id number])[address] [address], [place] [address]Ghxllyvnmi [Mass/Vol]3.64 mg/dLHigh0.40-1.[address] [facility] HospitalComment on above:Result Comment: METHOD TRACEABLE TO IDCA STANDARDPerformed By: #### PIPO, LIVR ####[facility] ([id number])[address] [address]MJR/1.73 sq M.predicted among non-blacks MDRD (S/P/Bld) [Vol rate/Area]14 mL/min/{1.73_m2}Low>59 ProMhale county hospitala Phoenix HospitalComment on above:Result Comment: Reported eGFR is based on theCKD-EPI 2020 equation that doesnot use a race coefficient.Performed By: #### BMP, LIVR ####[facility] ([id number])[address] [address], [place] [address]Zpainmd [Mass/Vol]97 mg/gPAulbbo50-18GwrBfcjsq Phoenix HospitalComment on above:Performed By: #### BMP, LIVR ####[facility] ([id number])[address] [address] [place] [address]Tduqashdc [Moles/Vol]4.8 mmol/LNormal3.5-5.0ProMercy Health Clermont HospitalComment on above: Performed By: #### PIPO, LIVR ####[facility] ([id number])[address], [address], [place] [address]Ykbrza [Moles/Vol]131 mmol/GWsf315-934 [facility] HospitalComment on above:Performed By: #### PIPO, LIVR ####[facility] ([id number])[address], [address] [place] [address]Ngxt nitrogen [Mass/Vol]42 mg/dLHigh5-27ProMercy Health Clermont HospitalComment on above:Performed By: #### PIPO, LIVR ####[facility] ([id number])[address], [address] [place] [address]ZOF AND AUTO DIFFon 41-18-2343XBUELXZB BASOPHIL0.1 X10E9/LNormal0.0-0.2P[facility] Comment on above:Performed By: #### CBCA ####[facility] ([id number])[address], [address] [place] [address]RNSTXWVH NEUTROPHIL4.3 X10E9/LNormal1.5-6.6[facility] HospitalComment on above:Performed By: #### CBCA ####[facility] ([id number])[address], [address] [place] [address]Itzqabhav/100 WBC (Bld)0.9 %NormalAultman Orrville Hospital Comment on above:Performed By: #### CBCA ####[facility] ([id number])[address], [address] [place] [address], [place] [address]Daljzyhtqov (Bld) [#/Vol] 0.0 10*3/uLNormal0.0-0.4ProMedica Lynn HospitalComment on above:Performed By: #### CBCA ####[facility] ([id number])[address], [address], [place] [address]Rfsufpcbwsi/100 WBC (Bld)0.1 %NormalAultman Orrville Hospital Comment on above:Performed By: #### CBCA ####[facility] ([id number])[address], [address], [place] [address]Qkxlnpxjthg distribution width (RBC) [Ratio]16.9 %High11.5-15.0ProCincinnati Children'S Hospital Medical Centerca Phoenix HospitalComment on above: Performed By: #### CBCA ####[facility] ([id number])[address] [address], [place] [address]Bhiglqlxxk (Bld) [Volume fraction]23.1 %Low 35-47ProCincinnati Children'S Hospital Medical Centerca Phoenix HospitalComment on above:Performed By: #### CBCA ####[facility] ([id number])[address] [address], [place] [address]Cmbdrxxtga (Bld) [Mass/Vol]7.5 g/dLLow11.7-15.5PGuernsey Memorial Hospital Comment on above:Performed By: #### CBCA ####[facility] ([id number])[address] [address], [place] [address]Wcrqkynhqfe (Bld) [#/Vol] 0.6 10*3/uLLow1.0-3.5PSalem City Hospital HospitalComment on above:Performed By: #### CBCA ####[facility] ([id number])[address] [address] [facility] [address]Rffpguqamif/100 WBC (Bld)11.5 %NormalProMercy Health Kings Mills Hospital HospitalComment on above:Performed By: #### CBCA ####[facility] ([id number])[address], [address], [place] [address]NNQ (RBC) [Entitic mass]32.8 fjUuazgr39-25KrfLtompz Lynn HospitalComment on above:Performed By: #### CBCA ####[facility] ([id number])[address], [address] [place] [address]QZNA (RBC) [Mass/Vol]32.4 g/fFEivvke66-46RoxGmsout Lynn HospitalComment on above:Performed By: #### CBCA ####[facility] ([id number])[address], [address] [place] [address]XUT (RBC) [Entitic vol] 101 dSJetx76-364GsmLdtlnc Lynn HospitalComment on above:Performed By: #### CBCA ####[facility] ([id number])[address], [address] [place] [address]Eiyrzzgrx (Bld) [#/Vol]0.4 10*3/uLNormal0-0.9ProMedica Lynn HospitalComment on above:Performed By: #### CBCA ####[facility] ([id number])[address], [address] [place] [address]Ufbluhavs/100 WBC (Bld) 6.8 %NormalProMedica Lynn HospitalComment on above:Performed By: #### CBCA ####[facility] ([id number])[address], [address] [place] [address]Zpysdoenscy/100 WBC (Bld)80.7 %NormalProMedica Lynn HospitalComment on above:Performed By: #### CBCA ####[facility] ([id number])[address], [address] [place] [address]Arilepad mean volume (Bld) [Entitic vol]7.2 fLNormal7-12Pro[facility] Lynn HospitalComment on above:Performed By: #### CBCA ####[facility] ([id number])[address], [address], [place] [address]Sojophpsf (Bld) [#/Vol]148 10*3/zWVkv725-092FqrEtzexfAultman Orrville Hospital Comment on above:Performed By: #### CBCA ####[facility] ([id number])[address], [address], [place] [address]XMF COUNT2.28 X10E12/LLow 3.80-5.20ProMercy Health Clermont HospitalComment on above:Performed By: #### CBCA ####[facility] ([id number])[address], [address], [place] [address]FSV (Bld) [#/Vol]5.3 10*3/uLNormal4.0-11.0ProMercy Health Clermont HospitalComment on above:Performed By: #### CBCA ####[facility] ([id number])[address], [address] [place] [address]CEEFBTWH BASOPHIL0.0 X10E9/LNormal0.0-0.2PGuernsey Memorial HospitalComment on above:Performed By: #### CBCA, CMP, 81047-7, 7-1, TSHR, 3024-7, 5196-1, 5193-8, 4679-7, 41667-1 ####[facility] ([id number])[address], [address] [place] [address]VYYEDJRB NEUTROPHIL3.8 X10E9/LNormal1.5-6.6[facility] Comment on above:Performed By: #### CBCA, CMP, 50454-2, 2777-1, TSHR, 3024-7, 5196-1, 5193-8, 4679-7, 33973-5 ####[facility] ([id number])[address], [address], [place] [address]Fdvwxmlzy/100 WBC (Bld)0.7 %NormalProMercy Health Clermont HospitalComment on above:Performed By: #### CBCA, CMP, 51247-9, 2777-1, TSHR, 3024-7, 5196-1, 5193-8, 4679-7, 80318-7 ####[facility] ([id number])[address], [address] [place] [address] Eosinophils (Bld) [#/Vol]0.0 10*3/uLNormal0.0-0.4[facility] Comment on above:Performed By: #### CBCA, CMP, 69395-0, 2777-1, TSHR, 3024-7, 5196-1, 5193-8, 4679-7, 18957-4 ####[facility] ([id number])[address], [address] [place] [address]Hqwkpbtueze/100 WBC (Bld) 0.3 %NormalProMercy Health [facility] Hospital HospitalComment on above:Performed By: #### CBCA, CMP, 80971-9, 2777-1, TSHR, 3024-7, 5196-1, 5193-8, 4679-7, 81536-6 ####[facility] ([id number])[address], [address] [place] [address] Erythrocyte distribution width (RBC) [Ratio]16.8 %High11.5-15.0[facility] HospitalComment on above:Performed By: #### CBCA, CMP, 32955-1, 2777-1, TSHR, 3024-7, 5196-1, 5193-8, 4679-7, 93949-0 ####[facility] ([id number])[address], [address] [place] [address]Cuocglokvu (Bld) [Volume fraction]23.6 %Bcg83-02IexLerbdg [place] HospitalComment on above:Performed By: #### CBCA, CMP, 20295-7, 2777-1, TSHR, 3024-7, 5196-1, 5193-8, 4679-7, 88734-7 ####[facility] ([id number])[address], [address] [place] [address]Nflqwxkvfh (Bld) [Mass/Vol]7.6 g/dLLow11.7-15.5PGuernsey Memorial Hospital Comment on above:Performed By: #### CBCA, CMP, 08973-4, 2777-1, TSHR, 3024-7, 5196-1, 5193-8, 4679-7, 63590-5 ####[facility] ([id number])0 [facility], [address] [place] [address]Zyocjidgnge (Bld) [#/Vol] 0.5 10*3/uLLow1.0-3.5PGuernsey Memorial HospitalComment on above:Performed By: #### CBCA, CMP, 46720-8, 2777-1, TSHR, 3024-7, 5196-1, 5193-8, 4679-7, 67926-3 ####[facility] ([id number])0 [facility], [address] [place] [address]Gurvgjxdpaa/100 WBC (Bld)9.8 %NormalProMercy Health Clermont HospitalComment on above:Performed By: #### CBCA, CMP, 35901-4, 2777-1, TSHR, 3024-7, 5196-1, 5193- 8, 4679-7, 02867-9 ####[facility] ([id number])[address], [address] [place] [address]OOP (RBC) [Entitic mass]32.7 jtSabakh04-20KhmVmjdye [place] HospitalComment on above:Performed By: #### CBCA, CMP, 55007-1, 2777-1, TSHR, 3024-7, 5196-1, 5193-8, 4679-7, 38233-0 ####[facility] ([id number])[address], [address], [place] [address]LFPR (RBC) [Mass/Vol]32.0 g/vKSthocc74-25OkeCfovrj [place] HospitalComment on above:Performed By: #### CBCA, CMP, 46036-7, 2777-1, TSHR, 3024-7, 5196-1, 5193-8, 4679-7, 66857-3 ####[facility] ([id number])[address], [address] [place] [address]IRE (RBC) [Entitic vol]102 aNFdsv73-766IrrQaihfzMercy Health Clermont HospitalComment on above:Performed By: #### CBCA, CMP, 98589-3, 2777-1, TSHR, 3024-7, 5196-1, 5193- 8, 4679-7, 05611-5 ####[facility] ([id number])[address], [address] [place] [address]Pabhmbjgx (Bld) [#/Vol]0.4 10*3/uLNormal0-0.9[facility] HospitalComment on above:Performed By: #### CBCA, CMP, 12545-8, 2777-1, TSHR, 3024-7, 5196-1, 5193-8, 4679-7, 67442-7 ####[facility] ([id number])[address], [address] [place] [address]Afuxdiljd/100 WBC (Bld)9.1 %NormalProMercy Health Clermont HospitalComment on above:Performed By: #### CBCA, CMP, 79160-3, 2777-1, TSHR, 3024-7, 5196-1, 5193-8, 4679-7, 42101-0 ####[facility] ([id number])[address], [address] [place] [address] Neutrophils/100 WBC (Bld)80.1 %NormalProMercy Health [facility] HospitalComment on above: Performed By: #### CBCA, CMP, 95054-5, 2777-1, TSHR, 3024-7, 5196-1, 5193-8, 4679-7, 56397-0 ####[facility] ([id number])[address], [address], [place] [address]Nhxgjhrr mean volume (Bld) [Entitic vol]7.3 fLNormal 7-12[facility] HospitalComment on above:Performed By: #### CBCA, CMP, 98867-5, 2777-1, TSHR, 3024-7, 5196-1, 5193-8, 4679-7, 03090-2 ####[facility] ([id number])[address], [address] [place] [address] Platelets (Bld) [#/Vol]138 10*3/wUByp030-140VqkPyupfo [place] HospitalComment on above:Performed By: #### CBCA, CMP, 68767-2, 2777-1, TSHR, 3024-7, 5196-1, 5193- 8, 4679-7, 18547-6 ####[facility] ([id number])[address], [address] [place] [address] 248[address]TET COUNT2.31 X10E12/LLow3.80-5.20[facility] HospitalComment on above:Performed By: #### CBCA, CMP, 12784-4, 2777-1, TSHR, 3024-7, 5196-1, 5193-8, 4679-7, 82721-0 ####[facility] ([id number])[address], [address] [place] [address] 32137KOY (Bld) [#/Vol]4.8 10*3/uLNormal4.0-11.0ProMercy Health [facility] HospitalComment on above:Performed By: #### CBCA, CMP, 83206-9, 2777-1, TSHR, 3024-7, 5196-1, 5193-8, 4679-7, 16130-4 ####[facility] ([id number])[address], [address] [place] [address] 48[address]XVBWVZCKGE PROFILEon 86-57-6028QVFJJTWBKJ C369 mg/cYFwu03-578KutDmpshg Lynn HospitalComment on above:Performed By: #### C34, SIFE, SPE, 13411-7, 99163-9 ####[facility] ([id number])[address], [address] [place] [address] 09991OLKZQSLGVI C413 mg/lJZug50-80LzjMmrost Lynn HospitalComment on above:Performed By: #### C34, SIFE, SPE, 00100-9, 83151-9 ####[facility] ([id number])[address], [address] [place] [address] 32446 COMPREHENSIVE METABOLIC PANELon 04-09-2271Bzjtpze [Mass/Vol]3.1 g/dLLow3.2-5.3 [facility] HospitalComment on above:Performed By: #### CBCA, CMP, 34833-2, 2777-1, TSHR, 3024-7, 5196-1, 5193-8, 4679-7, 45269-5 ####[facility] ([id number])[address], [address] [place] [address] 19[address]VER [Catalytic activity/Vol]119 U/FDxvosz91-805SckPekuvj Lynn HospitalComment on above: Performed By: #### CBCA, CMP, 83961-3, 2777-1, TSHR, 3024-7, 5196-1, 5193-8, 4679-7, 78985-5 ####[facility] ([id number])[address], [address] [place] [address] 22[address]BKA [Catalytic activity/Vol]6 U/LNormal0-31[facility] HospitalComment on above:Performed By: #### CBCA, CMP, 80859-1, 2777-1, TSHR, 3024-7, 5196-1, 5193-8, 4679-7, 96656-0 ####[facility] ([id number])[address], [address], [place] [address]Lmhky gap [Moles/Vol]10 mmol/LNormal5-15ProMercy Health Clermont HospitalComment on above:Performed By: #### CBCA, CMP, 00661-9, 2777-1, TSHR, 3024-7, 5196-1, 5193-8, 4679-7, 55519-6 ####[facility] ([id number])[address], [address], [place] [address]HIW [Catalytic activity/Vol]12 U/LNormal0-41ProMer[facility] Hospital Comment on above:Performed By: #### CBCA, CMP, 42646-0, 2777-1, TSHR, 3024-7, 5196-1, 5193-8, 4679-7, 64349-5 ####[facility] ([id number])[address], [address], [place] [address]Bmdxvvylu [Mass/Vol]0.8 mg/dLNormal0.3-1.2PSalem City Hospital HospitalComment on above:Performed By: #### CBCA, CMP, 26453-1, 2777-1, TSHR, 3024-7, 5196-1, 5193-8, 4679-7, 09765-7 ####[facility] ([id number])[address], [address], [place] [address]Ltiystc [Mass/Vol]7.9 mg/dLLow8.5-10.5PGuernsey Memorial HospitalComment on above:Performed By: #### CBCA, CMP, 75642-0, 2777-1, TSHR, 3024-7, 5196-1, 5193- 8, 4679-7, 19524-6 ####[facility] ([id number])[address], [address], [place] [address]Ngzhxnmw [Moles/Vol]98 mmol/MMvtogk86-521BlrPdxewz [place] HospitalComment on above:Performed By: #### NAMITA, RENA, 14655-1, 2777-1, TSHR, 3024-7, 5196-1, 5193-8, 4679-7, 01264-4 ####[facility] ([id number])[address], [address], [place] [address]LJ5 [Moles/Vol]20 mmol/LLow 22-32PGuernsey Memorial HospitalComment on above:Performed By: #### NAMITA, RENA, 17225-1, 2777-1, TSHR, 3024-7, 5196-1, 5193-8, 4679-7, 44884-9 ####[facility] ([id number])[address], [address] [place] [address] Creatinine [Mass/Vol]3.45 mg/dLHigh0.40-1.00ProMercy Health Clermont HospitalComment on above:Result Comment: METHOD TRACEABLE TO IDMS STANDARDPerformed By: #### NAMITA, RENA, 58710-7, 2777-1, TSHR, 3024-7, 5196-1, 5193-8, 4679-7, 58953-3 ####[facility] ([id number])[address], [address] [place] [address] GFR/1.73 sq M.predicted among non-blacks MDRD (S/P/Bld) [Vol rate/Area]15 mL/min/{1.73_m2}Low>59ProMercy Health Clermont HospitalComment on above:Result Comment: Reported eGFR is based on theCKD-EPI 2020 equation that doesnot use a race coefficient.Performed By: #### NAMITA, CMP, 81681-6, 2777-1, TSHR, 3024-7, 5196-1, 5193-8, 4679-7, 13834-4 ####[facility] ([id number])[address], [address], [place] [address]Blswtls [Mass/Vol]91 mg/sVDpatmn54-40 [facility] HospitalComment on above:Performed By: #### CBCA, CMP, 07164-9, 2776-1, TSHR, 3024-7, 5196-1, 5193-8, 4679-7, 54112-8 ####[facility] ([id number])[address], [address], [place] [address]Uemrdhfpe [Moles/Vol]4.7 mmol/LNormal3.5-5.0ProMercy Health Clermont HospitalComment on above: Performed By: #### CBCA, CMP, 65002-0, 2776-1, TSHR, 3024-7, 5196-1, 5193-8, 4679-7, 02430-3 ####[facility] ([id number])[address], [address], [place] [address]Xfsdnhq [Mass/Vol]5.9 g/dLLow6.0-8.0ProMercy Health Clermont HospitalComment on above:Performed By: #### CBCA, CMP, 58397-0, 7-1, TSHR, 3024-7, 5196-1, 5193-8, 4679-7, 94139-7 ####[facility] ([id number])[address], [address], [place] [address]Thiqmy [Moles/Vol]128 mmol/QUua556-392CayWsxvheMercy Health Clermont HospitalComment on above:Performed By: #### CBCA, CMP, 18388-6, 7-1, TSHR, 3024-7, 5196-1, 5193-8, 4679-7, 60981-1 ####[facility] ([id number])[address] [place] [address], [address] [place] [address]Gorh nitrogen [Mass/Vol]43 mg/dLMarmet Hospital For Crippled Children504 Waller StreetComment on above:Performed By: #### CBCA, CMP, 42950-6, 2777-1, TSHR, 3024-7, 5196-1, 5193-8, 4679-7, 97559-0 ####[facility] ([id number])[address] [place] [address], [address] [place] [address]YD ABDOMEN AND PELVIS WO CONTon 56-75-5245HX ABDOMEN AND PELVIS WO CONTNormalProMercy Health Clermont HospitalCT CHEST WO CONTon 05-93-1210ZL CHEST WO CONTNoUniversity Hospitals Health SystemCT NECK SOFT TISSUE WO CONTon 20-61-3961NQ NECK SOFT TISSUE WO [place] Clinical Pathologyon 87-71-7483Vgxcgvkh PathologyAshtabula County Medical Center Comment on above:Result Comment: [facility] [address] [place] [address] Clinical Pathology ReportPatient Name:ORESTES ALVARES:1965 (Age: 59)Gender:FTaken:06/14/2024Reported:06/17/2024Physician(s):Katarina Yu M.D. ([phone])Copy To: Rec. #:[id number]: #[id number] Pathologic DiagnosisMonoclonal protein in gamma region, 0.2 g/dL, IgG kappa.Mild hypoalbuminemia. Report Electronically Signed Outdf/06/17/2024Eben Pappas MDInterpretation [place] [address], License number: [id number].Clinical GyrauyxV65.91, J96.01, J96.00.SERUM PROTEIN ELECTROPHORESISSAMPLE NO: [id number] FRACTION CONCENTRATIONS (g/dL) PATIENT REFERENCE RANGEAlbumin 3.2 L 3.4 - 5.3Alpha-1 globulin 0.4 0.1 - 0.4Alpha-2 globulin 0.5 0.4 - 1.1Beta globulin 0.9 0.5 - 1.2Gamma globulin 1.0 0.5 - 1.61 0.2Total protein 6.0 6.0 - 8.0(Electrophoretic gels and densitometric tracings on file in lab.)SERUM IEPIMMUNOGLOBULIN LEVELS (mg/dL): IgG : 1039 IgA : 568 IgM : 162 Free [place]: 22.41 Free Lambda: 13.82 Free [place]/Lambda ratio: 1.62Specimen(s) Received1: Serum Protein Electrophoresis2: Serum IEPFee Codes(s):1;37020-773; 62884-32Qfemsr Comment: [facility] [address] [place] [address] Tel: Clinical Pathology ReportPatient Name:ORESTES ALVARES:1965 (Age: 59)Gender:FTaken:06/14/2024Reported:06/17/2024Physician(s):Katarina Yu M.D. ([phone])Copy To: Rec. #:[id number]: #[id number] Pathologic DiagnosisSerum like pattern suggestive of non- selective proteinuria.No monoclonal protein identified. Report Electronically Signed Outdf/06/17/2024Eben Pappas MDInterpretationper[place] [address], License number: [id number].Clinical LvmkroiZ54.91, J96.01, J96.00.URINE PROTEIN ELECTROPHORESISSAMPLE NUMBER: [id number] ELECTROPHORETIC CONCENTRATIONS (%) ? 100.0 Urine Protein 820 mg/L(Electrophoretic gels and densitometric tracings on file in lab.)Specimen(s) Received Urine Protein ElectrophoresisFee Codes(s):1; 39535-54Cjlbyvio Pathology Blood Smear Reviewon 74-88-5893Brvmvxfl Pathology Blood Smear ReviewNormalProCincinnati Children'S Hospital Medical Centerca Pomerene HospitalComment on above: Result Comment: [facility] [address] [place] [address] Clinical Pathology ReportPatient Name:ORESTES ALVARES:1965 (Age: 59)Gender:FTaken:06/14/2024Reported:06/19/2024Physician(s):[facility] To: Rec. #:[id number]: #[id number] Pathologic DiagnosisPeripheral smear review:- Marked macrocytic anemia [...] Electronically Signed Outduvall/06/19/2024Jamar Hammond MDInterpretation performed at [facility], [address] [place] [address], License number: [id number].Clinical History___BLOODSMEAR EVALUATIONCBC (06/14/2024 0245): WBC: 4.8 x [...] no clumpsSpecimen(s) Received Blood Smear ReviewFee Codes(s):1; 95926 ELECTROLYTESon 99-73-2361Glnvt gap [Moles/Vol]13 mmol/LNormal5-15Pro[facility] Lynn HospitalComment on above:Performed By: #### ELEC, , 2776-04 ####[facility] ([id number])[address], [place] [address]Sbfmnovax [Moles/Vol]4.0 mmol/LNormal3.5-5.0[facility] Comment on above:Performed By: #### ELEC, , 2776-04 ####[facility] ([id number])[address], [address], [place] [address]Gfqpsh [Moles/Vol]135 mmol/ISdwgli380-424ZykMdydlj Lynn HospitalComment on above: Performed By: #### ELEC, , 2776-04 ####[facility] ([id number])[address], [address], [place] [address]Asxzj gap [Moles/Vol]12 mmol/LNormal5-15Pro[facility] Lynn HospitalComment on above:Performed By: #### DEV TREVIÑO, ELEC, , 2776-04 ####[facility] ([id number])[address], [address], [place] [address]Hftgrwuq [Moles/Vol]101 mmol/VWflipk62-952UwkLftkkn Lynn HospitalComment on above:Performed By: #### ELEC, , 2776-04 ####[facility] ([id number])[address], [address], [place] [address]Zdohpchvv By: #### DEV TREVIÑO, ELEC, , 2776-04 ####[facility] ([id number])[address], [address], [place] [address]AS9 [Moles/Vol]20 mmol/OQxz77-27AnnYbohrtGuernsey Memorial Hospital Comment on above:Performed By: #### DEV TREVIÑO, ELEC, , 2776-04 ####[facility] ([id number])[address], [address], [place] [address] Potassium [Moles/Vol]4.3 mmol/LNormal3.5-5.0ProMercy Health Clermont HospitalComment on above:Performed By: #### PINR, DEV, ELEC, , 2776-04 ####[facility] ([id number])[address], [address], [place] [address]Wswgar [Moles/Vol]133 mmol/MFwm191-889FidBnovzo [place] HospitalComment on above: Performed By: #### DEV TREVIÑO, ELEC, , 2776-04 ####[facility] ([id number])[address], [address], [place] [address]IA0 [Moles/Vol]21 mmol/GLlq73-89LtiMroqrc [place] HospitalComment on above:Performed By: #### ELEC, , 2776-04 ####[facility] ([id number])[address], [address], [place] [address]Kxmiiragg By: #### BMP, LIVR ####[facility] ([id number])[address], [address], [place] [address]EOFNKNBUga 79-42-8459Krxwuitt [Mass/Vol]42 ng/tWPuovng05-781OhaOdierg [place] [facility] Comment on above:Performed By: #### FEPR, 2276-4, 41765-9, TSHR, 2284-8, 2132-9, 3024-7, 2532-0 ####[facility] ([id number])[address], [address], [place] [address]IKTH LIGHT CHAINSon 02-19-8988OPGD POONAM/LAMBD RATIO1.62 Normal0.26-1.65Pro[facility] HospitalComment on above:Performed By: #### C34, SIFE, SPE, 07187-6, 08544-9 ####[facility] ([id number])[address], [address], [place] [address]IRKO KAPPA LT VUDIOA66.41 mg/dLHigh0.33-1.94 ProMTriHealth Bet[facility] HospitalComment on above:Performed By: #### C34, SIFE, SPE, 09291-5, 54684-7 ####[facility] ([id number])[address] [facility], [address], [place] [address]MQOS LAMBDA LT NXZWTA00.82 mg/dLHigh0.57-2.63Pro[facility] HospitalComment on above:Performed By: #### C34, SIFE, SPE, 93101-1, 28123-4 ####[facility] ([id number])[address], [address], [place] [address]LINE T4on 66-21-1065Thlg T4 [Mass/Vol]0.58 ng/dLLow0.61-1.[address] [facility] HospitalComment on above:Performed By: #### FEPR, 2276-4, 73920-6, TSHR, 2284-8, 2132-9, 3024-7, 2532-0 ####[facility] ([id number])[address], [address], [place] [address]Ldrr T4 [Mass/Vol]0.50 ng/dLLow0.61-1.60Pro[facility] HospitalComment on above:Performed By: #### CBCA, CMP, 29355-1, 2777-1, TSHR, 3024-7, 5196-1, 5193-8, 4679-7, 03533-5 ####[facility] ([id number])[address] [place] [address], [address] [address]Osocvq [Mass/Vol]on 80-50-0833ITXVL ACID11.1 ng/mLNormal>5.8[facility] HospitalComment on above:Result Comment: NEW REFERENCE RANGEPerformed By: #### FEPR, 2276-4, 02161-4, TSHR, 2284-8, 2132-9, 3024-7, 2532-0 ####[facility] ([id number])[address] [place] [address], [address] [place] [address] Glomerular basement membrane IgG Qn (S)on 56-28-9189FXN IgG Ab<0.2Normal<1.0 ProMChillicothe VA Medical CenterComment on above:Performed By: #### C34, SIFE, SPE, 13721-8, 39388-7 ####[facility] ([id number])[address] [place] [address]RZL core Ab IA Qlon 18-63-5087LRYO HBcReactiveAbnormal NRCTProMercy Health Clermont HospitalComment on above:Result Comment: NEW TEST METHOD Performed By: #### CBCA, CMP, 66547-4, 2777-1, TSHR, 3024-7, 5196-1, 5193-8, 4679-7, 86039-1 ####[facility] ([id number])[address] [place] [address]ZMT surface Ab IA Qnon 56-31-0663Misy HBs quant.<3.00 NormalProMercy Health Clermont HospitalComment on above:Result Comment: NOTEVaccinated: >=10.00 mIU/mL, Positive (Immune)Unvaccinated: <10.00 mIU/mL,Negative (Not Immune)Interpretive values have changed due to implementation of anew method. Values run higher than previous method.Performed By: #### CBCA, CMP, 15669-2, 2777-1, TSHR, 3024-7, 5196-1, 5193-8, 4679-7, 27121-8 ####[facility] ([id number])[address], [address], [place] [address]WQF surface Ag IA Qlon 64-80-1280AZYUCMWVQ B SURF AGNon-ReactiveNormalNRCTProMer[facility] HospitalComment on above:Result Comment: NEW TEST METHODPerformed By: #### CBCA, CMP, 36196-7, 2776-, TSHR, 3024-7, 5196-1, 5193-8, 4679-7, 38190-6 ####[facility] ([id number])[address], [address] [place] [address]EVRor 20-43-0184Nzntfrhnkq (Bld) [Volume fraction]21.1 %Gva77-85PghRxgess [place] HospitalComment on above:Performed By: #### PINR, HH, ELEC, , 2776-04 ####[facility] ([id number])[address], [address], [place] [address]Nybkjtxshi (Bld) [Mass/Vol]6.9 g/dLCritically low11.7-15.5[facility] HospitalComment on above:Performed By: #### PINR, HH, ELEC, , 2776-04 ####[facility] ([id number])[address], [address] [place] [address]Lxulmnbvpwz Nephelometry [Mass/Vol]on 90-71-7555VYPQEAPUOCE94 mg/dLNormal 32-228Pro[facility] HospitalComment on above:Performed By: #### FEPR, 2276-4, 08324-0, TSHR, 2284-8, 2-9, 3024-7, 2532-0 ####[facility] ([id number])[address], [address], [place] [address]DBPR PROFILEon 06-14-2024 Iron [Mass/Vol]118 ug/vDNwftqh73-427YkaQxyeyu [place] HospitalComment on above: Performed By: #### FEPR, 2276-4, 63106-8, TSHR, 2284-8, 2132-9, 3024-7, 2532-0 ####[facility] ([id number])[address], [address], [place] [address]SKEY DMWPRKT484 ug/gBDrzfpw811-808GfnYzlmot [place] HospitalComment on above:Performed By: #### FEPR, 2276-4, 89086-0, TSHR, 2284-8, 2-9, 3024-7, 2532-0 ####[facility] ([id number])[address], [address] [place] [address]HQNL LCZQCTWQUY97 % PUNAKTNGHHHvgsqq44-32TpeDtuepa [place] HospitalComment on above:Performed By: #### FEPR, 2276-4, 74763-5, TSHR, 4-8, 2-9, 3024-7, 2532-0 ####[facility] ([id number])[address], [address] [place] [address]FWA [Catalytic activity/Vol]on 09-55-9764AOG 127 U/URnjrnn126-391SazQcjdij [place] HospitalComment on above:Performed By: #### FEPR, 2276-4, 32325-4, TSHR, 2284-8, 2-9, 3024-7, 2532-0 ####[facility] ([id number])[address], [address] [place] [address]WIIEZ PANELon 65-16-7225Vtldzbn [Mass/Vol]3.2 g/dLLow3.4-5.3ProMedOhio[facility] HospitalComment on above:Performed By: #### BMP, LIVR ####[facility] ([id number])[address], [address] [place] [address]Kmsxruutq By: #### C3Caroline, SIFE, SPE, 55618-6, 12328-6 ####[facility] ([id number])[address], [address], [place] [address]HAI [Catalytic activity/Vol]110 U/LNormal 39-130Pro[facility] Lynn HospitalComment on above:Performed By: #### BMP, LIVR ####[facility] ([id number])[address], [address], [place] [address]QYW [Catalytic activity/Vol]4 U/LNormal0-31ProMedOhio[facility] HospitalComment on above:Performed By: #### BMP, LIVR ####[facility] ([id number])[address], [address], [place] [address]YLH [Catalytic activity/Vol]12 U/LNormal0-41ProC[facility] Medical Centerca [facility] HospitalComment on above:Performed By: #### BMP, LIVR ####[facility] ([id number])[address], [address], [place] [address]Sxvhmsmym [Mass/Vol]0.8 mg/dLNormal0.3-1.2PSalem City Hospital HospitalComment on above:Performed By: #### BMP, LIVR ####[facility] ([id number])[address], [address], [place] [address] Bilirubin.direct [Mass/Vol]0.4 mg/dLNormal0.0-0.4Pro[facility] Hospital Comment on above:Performed By: #### BMP, LIVR ####[facility] ([id number])[address], [address], [place] [address]Iosmydd [Mass/Vol]5.7 g/dL Low6.0-8.0Pro[facility] HospitalComment on above:Performed By: #### BMP, LIVR ####[facility] ([id number])[address], [address], [place] [address]SSNEU RESPIRATORY CULTUREon 49-98-7255Djxpmuhg identified Respiratory culture Nom (Sput)GRAM STAIN 0 WHITE BLOOD CELLS/LPF 0 SQUAMOUS EPITHELIAL CELLS/LPF 0 CILIATED EPITHELIAL CELLS/LPF NO ORGANISMS SEEN CULTURE RESULTS NORMAL ORAL FLORANormalProCincinnati Children'S Hospital Medical Centerca Phoenix HospitalComment on above:Performed By: #### 624-7 ####[facility] ([id number])[address], [address] [place] [address]WYOCEQKWTxm 64-36-8806Drpduxmww [Mass/Vol]2.1 mg/dLNormal 1.8-2.6Pro[facility] HospitalComment on above:Performed By: #### ELEC, , 2776-04 ####[facility] ([id number])[address], [address] [place] [address]Gjxfgbemb [Mass/Vol]1.7 mg/dLLow1.8-2.6Pro[facility] HospitalComment on above:Performed By: #### PINR, HH, ELEC, , 2776-04 ####[facility] ([id number])[address] [address] [place] [address]Sqizehmac [Mass/Vol]3.5 mg/dLHigh1.8-2.6Pro[facility] HospitalComment on above:Performed By: #### CBCA, CMP, , 2776-04, TSHR, 3024-7, 5196-1, 5193-8, 4679-7, 71572-0 ####[facility] ([id number])[address], [address] [place] [address]Ftolovbgs Ionized ISE (Bld) [Moles/Vol]on 64-71-4873Kghiszlfv [Moles/Vol]0.54 mmol/LNormal0.45-0.74Pro[facility] HospitalComment on above:Result Comment: NEW REFERENCE RANGEPerformed By: #### 23654-9 ####[facility] ([id number])[address], [address], [place] [address]Bigefwwpsm cytoplasmic Ab panel IF (S)on 45-95-4292g-ANCA NegativeNormalNegativeProCincinnati Children'S Hospital Medical Centerca [facility]omerene HospitalComment on above:Performed By: #### C34, SIFE, SPE, 62067-1, 82075-8 ####[facility] ([id number])[address], [address] [place] [address]g-FLXBWsfgxicaSeqgpl NegativeProMercy Health Clermont HospitalComment on above:Result Comment: NOTENegative for cANCA and pANCA patterns by immunofluorescence. ADDITIONAL INFORMATION This test was developed and its performance characteristicsdetermined by [facility] in a manner consistent with CLIArequirements. This test has not been cleared or approved bythe U.S. Food and Drug Administration.Test Performed by:[address] Director: Alan Boothe Ph.D.; CLIA# [id number] By: #### C34, SIFE, SPE, 20015-0, 91758-6 ####[facility] ([id number])[address] [address]Sgklqns Ab IA Ql (S)on 87-78-4003QZF Screen w/reflexNegative NormalNEGProMercy Health Clermont HospitalComselect specialty hospital on above:Result Comment: Testing performed using multiplex flowimmunoassay. Eleven different antigensassociated with systemic autoimmunediseases (dsDNA,Sm,Sm/RETAIL WAREHOUSE SUPERVISOR,RETAIL WAREHOUSE SUPERVISOR,Chromatin,SSA,SSB,Keesha- 1,Scl70,Ribo P,Centromere B)are included in this screening test.Performed By: #### C34, SIFE, SPE, 65367-1, 41535-0 ####[facility] ([id number])[address] [facility], [address] [place] [address] 485[address]EHEWOHKIARkx 06-14-2024 Phosphate [Mass/Vol]5.1 mg/dLHigh2.4-4.9ProC[facility] Medical Centerca [facility] HospitalComment on above:Performed By: #### ELEC, , 2776-04 ####[facility] ([id number])[address], [address] [place] [address]Sfdiexrag [Mass/Vol]6.2 mg/dLHigh2.4-4.9[facility] HospitalComment on above:Performed By: #### PINR, HH, ELEC, , 2776-04 ####[facility] ([id number])[address], [address] [place] [address]Detawrtog [Mass/Vol]7.0 mg/dLHigh2.4-4.9Pro[facility] HospitalComment on above:Performed By: #### CBCA, CMP, , 2776-04, TSHR, 3024-7, 5196-1, 5193-8, 4679-7, 88097-7 ####[facility] ([id number])[address] [address] [place] [address] 625[address]ZPDQLSA CREAT RATIOon 01-72-4106RJJBQT URINE DGWXIYB954 mg/LHigh<120 [facility] HospitalComment on above:Performed By: #### UA, UPCR ####[facility] ([id number])[address] [address] [place] [address] U/PRO/STORES NAV[employer] RATIO CALC2.20High<0.2[facility] HospitalComment on above:Result Comment: Nephrotic Syndrome is associated with ratios >3.5Performed By: #### UA, UPCR ####[facility] ([id number])[address], [address] [place] [address]RTGZH CREATININE,RDM39.08 mg/dLNormalProCincinnati Children'S Hospital Medical Centerca Phoenix HospitalComment on above:Performed By: #### UA, UPCR ####[facility] ([id number])[address] [address], [place] [address]OGCNPCW AND INR on 63-80-6144BC Coag (PPP) [Time]17.0 sHigh9.8-13.2PGuernsey Memorial Hospital Comment on above:Performed By: #### PINR, 94227-2 ####[facility] ([id number])[address], [place] [address]RJV Coag (PPP) [Relative time]1.5 {INR}High0.9-1.2PGuernsey Memorial HospitalComment on above:Performed By: #### PINR, 66542-1 ####[facility] ([id number])[address] [address]Yfwmojyli By: #### PINR, HH, ELEC, , 2777-1 ####[facility] ([id number])[address] [address], [place] [address]CD Coag (PPP) [Time]16.7 sHigh9.8-13.2PGuernsey Memorial HospitalComment on above:Performed By: #### PINR, HH, ELEC, , 2776-1 ####[facility] ([id number])[address] [address]Oofiwkvctdc review Pathologist comment (Bld) [Interp]on 99-38-6954JRYAP REVIEWNOTENormalProMedica Pomerene HospitalComment on above:Result Comment: [facility] [address] [address] Clinical Pathology ReportPatient Name:ORESTES ALVARES:1965 (Age:59)Gender:FTaken:06/14/2024Reported:06/19/2024Physician(s):Vernell Tracey To: Rec. #:[id number]:#[id number] Pathologic DiagnosisPeripheral smear review:- Marked macrocytic anemia [...] ically Signed Outduvall/06/19/2024Jamar Hammond MDInterpretation performed at [facility], [address] [place] [address], License number: [id number].Clinical History___BLOOD SMEAR EVALUATIONCBC (06/14/2024 0245): WBC: 4.8 [...] forms and noclumpsSpecimen(s) ReceivedBlood Smear ReviewFee Codes(s):1; 486[address]Dutmitguvubwi/100 RBC (Bld)on 39-99-2800EIFBTKVJGOMN COUNT2.2 %Normal0.4-2.2Pro[facility] HospitalComment on above:Performed By: #### CBCA, CMP, 00424-6, 2777-1, TSHR, 3024-7, 5196-1, 5193-8, 4679-7, 34562-8 ####[facility] ([id number])[address], [address] [place] [address]OUDSU IMMUNOFIXATIONon 88-13-9074DqQ [Mass/Vol]568 mg/zQLcwt81-048LwpFonoas Lynn HospitalComment on above:Performed By: #### C34, SIFE, SPE, 68050-5, 05480-2 ####[facility] ([id number])[address], [address] [place] [address] 269[address]XiX [Mass/Vol]1039 mg/dL Wmusve700-2384FqqNyhtag Lynn HospitalComment on above:Performed By: #### C34, SIFE, SPE, 47348-6, 79009-2 ####[facility] ([id number])[address], [address] [place] [address]BdS [Mass/Vol]162 mg/lGPpdlxg50-212FacYdhjbf Lynn HospitalComment on above:Performed By: #### C34, SIFE, SPE, 82418-6, 04404-6 ####[facility] ([id number])[address], [address] [place] [address]AKOJWH PROFILE INTERPSEE SEPARATE REPORTNormalProMedica Lynn HospitalComment on above:Performed By: #### C34, SIFE, SPE, 26834-4, 85723-4 ####[facility] ([id number])[address], [address] [place] [address] 77415KDVRZ PROTEIN ELECTROPHORESISon 60-40-2995YYQXJ 1 GLOBULIN0.4 g/dLNormal0.1-0.4Pro[facility] HospitalComment on above:Performed By: #### C34, SIFE, SPE, 90817-7, 17682-1 ####[facility] ([id number])[address], [address] [place] [address]30[address]XALIR 2 GLOBULIN0.5 g/dL Normal0.4-1.1ProMedica Lynn HospitalComment on above:Performed By: #### C34, SIFE, SPE, 36356-6, 74951-3 ####[facility] ([id number])[address], [address] [place] [address] 366[address]XFFK GLOBULIN0.9 g/dLNormal0.5-1.2ProMedOhioHealth [facility]ide [facility] Hospital HospitalComment on above:Performed By: #### Anjum, SIFE, SPE, 83995-2, 27800-8 ####[facility] ([id number])[address], [address], [place] [address]ZCMYK GLOBULIN1.0 g/dLNormal0.5-1.6Pro[facility] Hospital Comment on above:Performed By: #### Anjum, SIFE, SPE, 03754-9, 96868-1 ####[facility] ([id number])[address], [address] [place] [address]TMVA. ELECTROPHORESIS INTERPSEE SEPARATE REPORTNormalProCincinnati [facility] Medical Centerca [place] HospitalComment on above:Performed By: #### Anjum, SIFE, SPE, 70876-4, 88096-7 ####[facility] ([id number])[address], [address] [place] [address] Protein [Mass/Vol]6.0 g/dLNormal6.0-8.0ProCinc[facility] Medical Centerca [place] HospitalComment on above:Performed By: #### C34, SIFE, SPE, 03823-1, 64486-4 ####[facility] ([id number])[address], [address] [place] [address]87[address]TGD WITH REFLEX on 90-05-1547GKZ83.30 uIU/mLHigh0.49-4.67[facility] HospitalComment on above:Performed By: #### FEPR, 2276-4, 24516-2, TSHR, 2284-8, 2132-9, 3024-7, 2532-0 ####[facility] ([id number])[address], [address] [place] [address]4038OFV00.51 uIU/mLHigh0.49-4.67[facility] HospitalComment on above:Performed By: #### CBCA, CMP, 58108-4, 2777-1, TSHR, 3024-7, 5196-1, 5193-8, 4679-7, 59897-1 ####[facility] ([id number])[address], [address] [place] [address] 27242DBSPEILXIHok 41-89-2485Usnkjukbr Ql (U) NegativeNormalNEGProMedica Phoenix HospitalComment on above:Performed By: #### SHANITA, UPCR ####[facility] ([id number])[address], [address] [place] [address] 31217IKOYJ/HGBLargeAbnormalNEGProCincinnati Children'[facility] Hospital Medical Centerca [place] HospitalComment on above:Performed By: #### UA, UPCR ####[facility] ([id number])[address], [address] [place] [address] 80673Ckqps (U)YELLOWNormalYELLOW [facility] HospitalComment on above:Performed By: #### UA, UPCR ####[facility] ([id number])[address], [address] [place] [address]38 Glucose Ql (U)NegativeNormalNEGProCincinnati Children'S Hospital Medical Centerca [place] HospitalComment on above: Performed By: #### UA, UPCR ####[facility] ([id number])[address], [address] [place] [address], [place] [address]Wkcjyxr casts LM Ql (Urine sed)10 /lpfHigh 0-2[facility] [place] HospitalComment on above:Performed By: #### UA, UPCR ####[facility] ([id number])[address], [address] [place] [address], [place] [address]Mfjgboa Ql (U)NegativeNormalNEGProMedica Lynn HospitalComment on above: Performed By: #### SHANITA, UPCR ####[facility] ([id number])[address], [address] [place] [address] 209[address]Nqsrglrzm esterase Test strip Ql (U)Large AbnormalNEGProMedica Phoenix HospitalComment on above:Performed By: #### SHANITA, UPCR ####[facility] ([id number])[address], [address], [place] [address]FSYOHAPKITZTNGvfpdygkIMPTBuwIflwvr Phoenix HospitalComment on above: Performed By: #### SHANITA, UPCR ####[facility] ([id number])[address], [address] [place] [address]Iwxdyze Ql (U)NegativeNormalNEGProMedica Phoenix HospitalComment on above:Performed By: #### SHANITA, UPCR ####[facility] ([id number])[address], [address], [place] [address]xG (U)5.5 [pH] Normal5.0-8.5Pro[facility]ica [place] HospitalComment on above:Performed By: #### SHANITA, UPCR ####[facility] ([id number])[address], [address], [place] [address]Azgedum Ql (U)50 mg/dLAbnormalNEGProMedica Phoenix HospitalComment on above:Performed By: #### SHANITA, UPCR ####[facility] ([id number])[address], [address], [place] [address]V.B.KPJPG605 /hpfHigh0-5 [facility] Phoenix HospitalComment on above:Performed By: #### SHANITA, UPCR ####[facility] ([id number])[address], [address], [place] [address] Specific gravity (U) [Rel density]1.540Miacis4.003-1.035ProMedica Lynn HospitalComment on above:Performed By: #### UA, UPCR ####[facility] ([id number])[address], [address] [place] [address]479UTOIXGQE EPITHELIUM2 /hpfNormal0-5ProMedOhio[facility] HospitalComment on above:Performed By: #### UA, UPCR ####[facility] ([id number])[address], [address] [place] [address] 67011FIJYDOCBCAMG EPITH<0Ttzj8BlsBpkmti Phoenix HospitalComment on above:Performed By: #### UA, UPCR ####[facility] ([id number])[address], [address] [place] [address] 05889OCZLLKMRBXCZWJnefgnnhHMDKU [facility] Phoenix HospitalComment on above:Performed By: #### UA, UPCR ####[facility] ([id number])[address] [address] [place] [address] Urinalysis dipstick W Reflex Microscopic panel (U)URINE RECEIVED WITHOUT PRESERVATIVE-DELAYS IN TRANSPORT MAY AFFECT RESULTS.INTERPRET WITH CAUTION AND CLINICAL CORRELATION IS RECOMMENDED.NormalProMercy Health [facility] Hospital HospitalComment on above:Performed By: #### UA, UPCR ####[facility] ([id number])[address] [address] [place] [address] 24374Tmzyurxyoqov (U) [Mass/Vol] mg/dLNormal<1.1ProMedOhioHealth Riverside Methodist Hospital HospitalComment on above:Performed By: #### UA, UPCR ####[facility] ([id number])[address] [address] [place] [address]P.B.CELLS69 /hpfHigh0-5PSalem City Hospital HospitalComment on above: Performed By: #### UA, UPCR ####[facility] ([id number])[address] [address] [place] [address] 31760JKXHM CULTUREon 86-59-4329Qaajzmbr identified Cx Nom (U)SPECIMEN NOTES URINE RECEIVED WITHOUT PRESERVATIVE CULTURE RESULTS NO GROWTH AT <1000 CFU/mLNormalProMedica Lynn HospitalComment on above: Performed By: #### 630-4 ####[facility] ([id number])[address] [facility], [address], [place] [address]ZWZLG PROTEIN ELECTROPHORESISon 06-14-2024 UPREL INTERPSEE SEPARATE REPORTNormalProMedica Lynn HospitalUS RETROPERITONEAL COMPLETEon 99-81-2158KO RETROPERITONEAL COMPLETENormalProMedica Pomerene Hospital VENOUS BLOOD GASon 49-42-3896INCCI'S TESTNormalProMedica Lynn HospitalComment on above:Performed By: #### VBG ####[facility] ([id number])[address] [place], [place] [address]XVWJ,DEFICIT9.0 MMOL/LHigh0.0-2.0Pro[facility] Lynn HospitalComment on above:Performed By: #### VBG ####[facility] ([id number])[address] [place], [place] [address]Szqx ccgldhgbofa69.6 [degF]Normal 37.0Pro[facility] Lynn HospitalComment on above:Performed By: #### VBG ####[facility] ([id number])[address] [place], [place] [address]OZH0 (Bld) [Moles/Vol]19.9 mmol/LLow20.0-24.0Pro[facility] Lynn HospitalComment on above: Performed By: #### VBG ####[facility] ([id number])[address] [place], [place] [address]GSIR. O2 CONC.100 %NormalProMedica Lynn HospitalComment on above:Performed By: #### VBG ####[facility] ([id number])[address] [place], [place] [address]Fodmuj saturation in Blood91.0 %Normal>80.0Pro[facility] Lynn HospitalComment on above:Performed By: #### VBG ####[facility] ([id number])[address] [place], [place] [address]XSAKJN SOURCEVentNormal [facility] Lynn HospitalComment on above:Performed By: #### VBG ####[facility] ([id number])[address] [place], [place] [address]YRQ6, VENOUS 56.6 NROCMvae11-01LqzHawghc Lynn HospitalComment on above:Performed By: #### VBG ####[facility] ([id number])[address] [place] [address] PH, VENOUS7.083Tpp9.320-7.420Pro[facility] Phoenix HospitalComment on above:Performed By: #### VBG ####[facility] ([id number])[address] [place], [place] [address]AH5, LXYGZA14 COUYNsqw05-09SrlYofhal Lynn HospitalComment on above:Performed By: #### VBG ####[facility] ([id number])[address] [place], [place] [address]CAZUNS SITEN/ANormalProMedica Lynn HospitalComment on above:Performed By: #### VBG ####[facility] ([id number])[address] [place], [place] [address]VYAYCR TYPEVENOUSNormalProMedica Lynn Hospital Comment on above:Performed By: #### VBG ####[facility] ([id number])[address] [place], [place] [address]KNPZBUY B12on 77-34-6224Nzvrsjabo (Vitamin B12) [Mass/Vol]1093 pg/lEDiwc616-349WigDktfgu Lynn HospitalComment on above:Performed By: #### FEPR, 2276-4, 75097-3, TSHR, 2284-8, 2132-9, 3024-7, 2532-0 ####[facility] ([id number])[address], [address], [place] [address]BF CHEST 1 VWon 76-71-3381WO CHEST 1 VWNormalProMercy Health Clermont HospitalXR CHEST 1 [facility] HospitalalProMercy Health Clermont HospitalaPTT Coag (PPP) [Time]on 54-14-1860wYKH Coag (Bld) [Time]45 pJoyw50-85BgxWuemmu [place] HospitalComment on above:Performed By: #### PINR, 01296-8 ####[facility] ([id number])[address], [place], [place] [address]VIUVM CULTUREon 06-13-2024 Bacteria identified Aer cx Nom (Bld)NormalProMercy Health Clermont HospitalComment on above:Performed By: #### 34391-2 ####[facility] ([id number])[address], [address] [place] [address]Ilejbweu identified Aer cx Nom (Bld)SPECIMEN NOTES SUBOPTIMAL VOLUME OF BLOOD COLLECTED, RESULTS MAY BE AFFECTED. CULTURE RESULTS NO GROWTH 5 DAYSNormalAultman Orrville HospitalComment on above:Performed By: #### 06646-8 ####[facility] ([id number])[address], [address] [place] [address]GGB AND AUTO DIFFon 46-41-8056HTPMILUE BASOPHIL0.0 X10E9/L Normal0.0-0.2ProMedOhioHealth Riverside Methodist Hospital HospitalComment on above:Performed By: #### CBCA, CMP, 71704-1, 2777-1, 94959-4, 55948-3, PINR, 98431-7 ####[facility] ([id number])[address] [place] [address]IVTMFHVY NEUTROPHIL3.7 X10E9/LNormal1.5-6.6ProMercy Health Clermont HospitalComment on above: Performed By: #### CBCA, CMP, 62444-5, 2777-1, 77103-2, 35740-4, PINR, 12939-6 ####[facility] ([id number])[address], [address], [place] [address]Ykdkacmyl/100 WBC (Bld)0.3 %NormalProMercy Health Kings Mills Hospital HospitalComment on above:Performed By: #### CBCA, CMP, 69882-7, 2777-1, 55065-6, 85877-6, PINR, 43000-9 ####[facility] ([id number])[address] [address] [place] [address] 226[address]Bjndotnpafz (Bld) [#/Vol]0.0 10*3/uLNormal0.0-0.4ProMercy Health Clermont HospitalComment on above:Performed By: #### CBCA, CMP, 83231-6, 2777-1, 85100-1, 29134-7, PINR, 27716-8 ####[facility] ([id number])[address] [address], [place] [address]Nyrqczrinvu/100 WBC (Bld) 0.2 %NormalProMercy Health Kings Mills Hospital HospitalComment on above:Performed By: #### CBCA, CMP, 69037-2, 2777-1, 63763-0, 97046-1, PINR, 77478-0 ####[facility] ([id number])[address] [place] [address] 083[address]Bfsxjzcrxvu distribution width (RBC) [Ratio]16.8 %High11.5-15.0[facility] Hospital Comment on above:Performed By: #### CBCA, CMP, 14906-4, 2777-1, 64073-9, 70537- 0, PINR, 37614-6 ####[facility] ([id number])[address], [address] [place] [address] 77[address]Ibgrqrkzmo (Bld) [Volume fraction]24.9 %Jte82-63 [facility] HospitalComment on above:Performed By: #### CBCA, CMP, 25718-6, 2777-1, 03468-5, 96796-2, PINR, 06040-1 ####[facility] ([id number])[address], [place] [address]Vivvgymvov (Bld) [Mass/Vol] 8.2 g/dLLow11.7-15.5ProMedOhioHealth Riverside Methodist Hospital HospitalComment on above:Performed By: #### CBCA, CMP, 94506-0, 2777-1, 42248-5, 53677-3, PINR, 76748-2 ####[facility] ([id number])[address], [address], [place] [address]Kynjsknlvwe (Bld) [#/Vol]0.4 10*3/uLLow1.0-3.5ProMedOhioHealth Riverside Methodist Hospital HospitalComment on above: Performed By: #### CBCA, CMP, 60113-3, 2777-1, 17502-0, 90248-8, PINR, 48728-3 ####[facility] ([id number])[address], [address], [place] [address]Sziufhqdzpl/100 WBC (Bld)9.4 %NormalProMercy Health Kings Mills Hospital HospitalComment on above:Performed By: #### CBCA, CMP, 37228-0, 2777-1, 79736-6, 62671-9, PINR, 99127-0 ####[facility] ([id number])[address], [address], [place] [address]KKC (RBC) [Entitic mass]33.0 mcAuksae75-94KbjDsotvc [place] HospitalComment on above:Performed By: #### CBCA, CMP, 43400-6, 2777-1, 10579-2, 14241-4, PINR, 91104-5 ####[facility] ([id number])[address], [address] [place] [address] 39958UWBP (RBC) [Mass/Vol]32.8 g/yILaunwu63-38 [facility] HospitalComment on above:Performed By: #### CBCA, CMP, 22459-8, 2777-1, 80116-2, 62615-7, PINR, 49168-5 ####[facility] ([id number])[address], [address] [place] [address] 526[address]EDX (RBC) [Entitic vol]101 qJKihv39-091HgnZyejbq Lynn HospitalComment on above:Performed By: #### CBCA, CMP, 20099-3, 2777-1, 73841-9, 77184-8, PINR, 93890-9 ####[facility] ([id number])[address], [address] [place] [address] 34566Ncsamurjh (Bld) [#/Vol]0.5 10*3/uLNormal0-0.9Pro[facility] Lynn HospitalComment on above:Performed By: #### CBCA, CMP, 28515-8, 2777-1, 78886-2, 86178-9, PINR, 42691-8 ####[facility] ([id number])[address], [address] [place] [address] 37710 Monocytes/100 WBC (Bld)10.9 %NormalProMedica Lynn HospitalComment on above: Performed By: #### CBCA, CMP, 99857-2, 2777-1, 62632-4, 37050-9, PINR, 31937-8 ####[facility] ([id number])[address], [address] [place] [address] 96209Wppwcglewwn/100 WBC (Bld)79.2 %NormalProMedica Lynn HospitalComment on above:Performed By: #### CBCA, CMP, 76370-1, 2777-1, 20505-7, 55006-1, PINR, 72338-5 ####[facility] ([id number])[address], [address] [place] [address] 76873Ysuuwduz mean volume (Bld) [Entitic vol]7.2 fLNormal7-12 [facility] HospitalComment on above:Performed By: #### CBCA, CMP, 26311-2, 2777-1, 38076-9, 18184-6, PINR, 11280-1 ####[facility] ([id number])[address], [address] [place] [address] 10874Ruqhaivzo (Bld) [#/Vol]149 10*3/sNFow530-134MpzDostxd Phoenix HospitalComment on above:Performed By: #### CBCA, CMP, 42669-6, 2777-1, 14389-6, 72562-4, PINR, 62905-2 ####[facility] ([id number])[address], [address] [place] [address] 03834JKX COUNT2.48 X10E12/LLow3.80-5.20ProCincinnati Children'S Hospital Medical Centerca Phoenix HospitalComment on above:Performed By: #### CBCA, CMP, 37138-2, 2777-1, 71298-2, 83071-8, PINR, 10662-3 ####[facility] ([id number])[address], [address] [place] [address] 645[address]TVO (Bld) [#/Vol]4.7 10*3/uLNormal4.0-11.0[facility] HospitalComment on above: Performed By: #### CBCA, CMP, 30673-7, 2777-1, 47489-2, 62357-6, PINR, 73883-8 ####[facility] ([id number])[address] [place] [address] 60544UVUUZLMUUNSWX METABOLIC PANELon 02-11-4211Wfuemcz [Mass/Vol]3.4 g/dLNormal 3.2-5.3Pro[facility] Lynn HospitalComment on above:Performed By: #### CBCA, CMP, 37141-2, 2777-1, 62111-7, 42228-2, PINR, 28636-7 ####[facility] ([id number])[address], [address], [place] [address]BIW [Catalytic activity/Vol]139 U/OEdfy57-066TdfNasurx Lynn HospitalComment on above: Performed By: #### CBCA, CMP, 26440-2, 2777-1, 02868-5, 15170-3, PINR, 47454-0 ####[facility] ([id number])[address], [address], [place] [address]BNI [Catalytic activity/Vol]4 U/LNormal0-31ProMedwalker [facility] Lynn HospitalComment on above:Performed By: #### CBCA, CMP, 08202-6, 2777-1, 95892-1, 41457-3, PINR, 35074-6 ####[facility] ([id number])[address], [address], [place] [address]Mvqsf gap [Moles/Vol]12 mmol/LNormal5-15[facility] HospitalComment on above:Performed By: #### CBCA, CMP, 77163-6, 2777-1, 69177-3, 19206-8, PINR, 40383-1 ####[facility] ([id number])[address], [address], [place] [address]USP [Catalytic activity/Vol]15 U/LNormal0-41 [facility] HospitalComment on above:Performed By: #### CBCA, CMP, 41028-4, 2777-1, 28684-6, 75141-1, PINR, 15069-3 ####[facility] ([id number])[address], [address], [place] [address]Rodrdcgmi [Mass/Vol]0.9 mg/dLNormal0.3-1.2PSalem City Hospital HospitalComment on above:Performed By: #### NAMITA, CMP, 52979-5, 2777-1, 61470-4, 01612-7, PINR, 88584-4 ####[facility] ([id number])[address], [address], [place] [address]Wwghpvf [Mass/Vol]8.2 mg/dLLow8.5-10.5PGuernsey Memorial HospitalComment on above: Performed By: #### NAMITA, CMP, 73046-6, 2777-1, 54445-5, 20391-6, PINR, 73346-2 ####[facility] ([id number])[address], [address], [place] [address]Hcxcnpjk [Moles/Vol]99 mmol/VEmzdke83-732YufVymztp [place] HospitalComment on above:Performed By: #### NAMITA, CMP, 05930-3, 2777-1, 82017-7, 64459-7, PINR, 81406-4 ####[facility] ([id number])[address], [address], [place] [address]QV4 [Moles/Vol]20 mmol/STvg21-89HhpRkwtyx [place] [facility] Comment on above:Performed By: #### CBCA, CMP, 22197-7, 2777-1, 10846-2, 73842- 0, PINR, 92095-8 ####[facility] ([id number])[address], [address], [place] [address]Mnhxvndeip [Mass/Vol]3.34 mg/dLHigh0.40-1.00ProMercy Health Clermont HospitalComment on above:Result Comment: METHOD TRACEABLE TO IDMS STANDARDPerformed By: #### CBCA, CMP, 73659-0, 2777-1, 83858-6, 36992-7, PINR, 02441-0 ####[facility] ([id number])[address], [place] [address]YYT/1.73 sq M.predicted among non-blacks MDRD (S/P/Bld) [Vol rate/Area]15 mL/min/{1.73_m2}Low>59ProMediOhioHealth Doctors Hospital HospitalComment on above: Result Comment: Reported eGFR is based on theCKD-EPI 2020 equation that doesnot use a race coefficient.Performed By: #### RENA BREAUX, 77455-7, 2777-1, 92463-2, 96279-6, PINR, 58693-5 ####[facility] ([id number])[address], [address], [place] [address]Kfqeifl [Mass/Vol]85 mg/jLOnfgqs39-90 [facility] HospitalComment on above:Performed By: #### RENA BREAUX, 03651-2, 2777-1, 44013-1, 62125-1, PINR, 20016-4 ####[facility] ([id number])[address] [address], [place] [address]Nfoplmsew [Moles/Vol]4.8 mmol/LNormal3.5-5.0ProMercy Health [facility] Hospital HospitalComment on above:Performed By: #### NAMITA, CMP, 06081-4, 2777-1, 01601-5, 18298-1, PINR, 78519-9 ####[facility] ([id number])[address], [address], [place] [address]Sdutpim [Mass/Vol]6.3 g/dLNormal6.0-8.0ProMercy Health Clermont HospitalComment on above: Performed By: #### CLARIBELA, CMP, 10213-5, 2777-1, 50681-7, 72747-1, PINR, 68616-8 ####[facility] ([id number])[address], [address], [place] [address]Llopzi [Moles/Vol]131 mmol/UOha006-180DzpSofawsMercy Health Clermont HospitalComment on above:Performed By: #### CBCA, CMP, 37926-7, 2777-1, 26242-4, 79502-2, PINR, 81243-6 ####[facility] ([id number])[address], [address], [place] [address]Ujip nitrogen [Mass/Vol]43 mg/dLHigh5-27ProMercy Health Clermont HospitalComment on above:Performed By: #### CBCA, CMP, 12019-0, 2777-1, 11116-4, 82055-1, PINR, 13316-3 ####[facility] ([id number])[address], [address] [place] [address]Bwvuace Glucometer (BldC) [Mass/Vol]on 75-15-1000Jtwuhqi [Mass/Vol]88 mg/lEDmkbub61-96JikXdanomAultman Orrville Hospital Laboratory - Chemistry and Chemistry - challengeon 75-13-2379HPQ1 (Bld) [Moles/Vol]19.8 mmol/LLow22.0-26.0The Christ HospitalAmmonia (P) [Moles/Vol]59 umol/LCritically lxvh26-33RzvvbmqzxThe Christ HospitalComment on above:RESULTS CALLED TO efra brink rn @BY Delmi Quiles eu6187Pafjnrr [Catalytic activity/Vol]39 U/X58-617VesnxcrzfThe Christ HospitalLactate [Moles/Vol]1.1 mmol/L0.4-2.0The [facility] HospitalLipase [Catalytic activity/Vol]36.0 U/L16.0-77.0The [facility] HospitalMagnesium [Mass/Vol]1.0 mg/dLLow1.8-2.4FCleveland Clinic Marymount HospitalT4 [Mass/Vol]2.20 ug/dLLow4.80-13.90The Christ HospitalTSH Qn13.271 m[IU]/LHigh 0.358-3.740The [facility] HospitalLaboratory - Microbiology and Antimicrobial susceptibilityon 19-80-1395LLKA-CoV-2 (COVID-19) RNA YVONNE+probe Ql (Unsp spec)NegativeNEGATIVEThe Christ HospitalComment on above: This test has not [...] authorization is revoked sooner.Lactate (P mikey) [Moles/Vol]on 55-69-2960GWLPPSE W/REFLEX0.8 mmol/LNormal0.4-2.0[facility] Comment on above:Result Comment: Result did not trigger repeat Lactate,re-order if needed.Performed By: #### CBCA, CMP, 64798-1, 2777-1, 81019-6, 13685-1, PINR, 86198-6 ####[facility] ([id number])[address], [address], [place] [address]IWZVKMOTEdm 51-71-7950Nvgbvwioc [Mass/Vol]1.0 mg/dLLow1.8-2.6 [facility]ome[facility] HospitalComment on above:Performed By: #### CBCA, CMP, 06744-7, 2777-1, 82356-3, 31269-4, PINR, 07897-0 ####[facility] ([id number])[address], [place] [address]FSPU PCR NASALon 06-13-2024 MRSA DNA YVONNE+probe Ql (Unsp spec)PositiveAbnormalNEGProMercy Health Clermont Hospital Comment on above:Performed By: #### 05435-9 ####[facility] ([id number])[address] [facility], [address], [place] [address]Pqbscokocuu peptide B [Mass/Vol]on 38-93-8016Kjvoswoupsj peptide B (Bld) [Mass/Vol]1765 pg/mLHigh <100.0ProMercy Health Clermont HospitalComment on above:Performed By: #### CBCA, CMP, 78930-1, 2777-1, 66771-2, 49098-8, PINR, 53805-1 ####[facility] ([id number])[address] [facility], [address] [place] [address]Ah Panel Informationon 99-87-4144Skxtn TestPositivePOSITIVEThe Christ HospitalArterial Blood Base Excess-8.6 mmol/LLow<2.0-2.0The Christ HospitalArterial Blood Oxygen Rgezhazqcb12.5 %The Christ HospitalArterial Blood Partial Pressure CO253.0 mm[Hg]Critically high35.0-45.0The [facility] HospitalComment on above:RESULTS CALLED TO BING PACHECORNArterial Blood Partial Pressure O2120.0 mm[Hg]High80.0-100.0[facility] Arterial Blood pH7.181Critically low7.350-7.450[facility] Comment on above:RESULTS CALLED TO BING PACHECORNBlood Gas Mode BiPAP16/8 The [facility] HospitalBlood Gas Sample SiteRRThe Christ HospitalBlood Gas Set Respiration Ezqr65GzungxniwThe Christ Hospital Blood Gas Tidal Ngmpvb217XrgoxjmoyThe Christ HospitalBlood Gas Ventilator ModeSTThe Christ HospitalFiO235 %[facility] Oxygen Delivery DeviceBIPAPThe Christ HospitalReference Lab Test #2 Result9.3FCleveland Clinic Marymount HospitalTroponin I High Gwyfhpzxevp93.0 pg/mLCritically high4.0-51.3FCleveland Clinic Marymount HospitalComment on above: RESULTS CALLED TO EFRA [...] OTHER DIAGNOSTIC AND CLINICAL INFORMATION.Blood Gas Liter Thly8GlrqbyjrpThe Christ HospitalVenous Blood Partial Pressure CO251.2 mm[Hg]40.0-52.0 The Christ HospitalVenous Blood pH7.188Rlr1.330-7.430The Christ HospitalBedside Influenza Type A AntigenNegativeThe Christ HospitalComment on above:Negative for Flu A protein antigen. Infection due to Flu Acannot be ruled out. Flu A antigen in thesample may bebelow the detection limit of the test.Bedside Influenza Type B AntigenNegative The Christ HospitalComment on above:Negative for Flu B protein antigen. Infection due to Flu Bcannot be ruled out. Flu B antigen in thesample may bebelow the detection limit of the test.RSV RNA Qual (PCR)([facility] [place])Not detected NOT DETECTKettering Health Greene MemorialPHOSPHORUSon 73-06-9302Dvkpnsfiu [Mass/Vol]6.8 mg/dLHigh2.4-4.9ProCincinnati Children'S Hospital Medical Centerca Pomerene HospitalComment on above: Performed By: #### CBCA, CMP, 51413-3, 2777-1, 52978-3, 17703-9, PINR, 42885-8 ####[facility] ([id number])[address] [facility], [address], [place] [address]IWPVMHY AND INRon 61-95-3797EWU Coag (PPP) [Relative time]1.4 {INR}High 0.9-1.2ProMedica Pomerene HospitalComment on above:Performed By: #### CBCA, CMP, 79007-6, 2777-1, 38736-7, 69933-5, PINR, 39552-6 ####[facility] ([id number])[address], [address] [place] [address]SN Coag (PPP) [Time] 16.3 sHigh9.8-13.2ProMedica Pomerene HospitalComment on above:Performed By: #### CBCA, CMP, 91164-5, 2777-1, 00047-3, 99444-4, PINR, 59747-5 ####[facility] ([id number])[address] [address] [place] [address]Ecxcblesprwtx [place] [Mass/Vol]on 23-54-7113PBARACNADMXLR7.22 ng/mLHigh<0.05[facility]rville HospitalComment on above:Result Comment: NOTE<0.50 ng/mL - Low risk of severe sepsis and/or septic shock.<2.00 ng/mL -Recommend retesting within 6-24 hours.>2.00 ng/mL - High risk of sepsis and/or septic shock.Performed By: #### CBCA, CMP, 74526-9, 2777-1, 53150-8, 13986-8, PINR, 96402-7 ####[facility] ([id number])[address] [address] [place] [address]IKTD PATHOGENS/KLOB-LrP-8fc 76-29-5600Euijjbngtuf pathogens DNA and RNA panel YVONNE+non-probe (Nph)NormalProMercy Health Clermont HospitalComment on above:Performed By: #### 72168-9 ####[facility] ([id number])[address] [address] [place] [address]Uxmogiwo I.cardiac High sensitivity method [Mass/Vol]on HOUR TROP I, HIGH NUVFURRCFSO97 ng/LHigh<16ProMercy Health Clermont Hospital Comment on above:Result Comment: Elevations of hs-Troponin may be due to causesother than myocardial ischemia.Recommend serial hs-Troponin testing be performed.For the initial evaluation and management of chestpain patients, refer to the algorithms linked below.Emergency Patient:[email or web address] =[email or web address]&[email or web address]&uh=acaeaInpatient:[email or web address]? [email or web address]&k=29357&uh=acaeaPerformed By: #### 90938-1 ####[facility] ([id number])[address], [address] [place] [address] TROPONIN I, HIGH ZPIFOTSXHXJ32 ng/LHigh<16ProMercy Health Clermont HospitalComment on above:Result Comment: Elevations of hs-Troponin may be due to causesother than myocardial ischemia.Recommend serial hs-Troponin testing be performed.For the initial evaluation and management of chestpain patients, refer to the algorithms linked below.Emergency Patient:[email or web address] =[email or web address]&a=[email or web address]&uh=acaeaInpatient:[email or web address]? [email or web address]&z=18767&uh=acaeaPerformed By: #### 07533-1 ####[facility] ([id number])[address], [address] [place] [address] VENOUS BLOOD GASon 87-99-0598SMBXQ'S TESTNormalProCincinnati Children'S Hospital Medical Centerca Pomerene HospitalComment on above:Performed By: #### VBG ####[facility] ([id number])[address] [place], [place] [address]VNKB,DEFICIT8.0 MMOL/LHigh0.0-2.0ProMercy Health Clermont HospitalComment on above:Performed By: #### VBG ####[facility] ([id number])[address] [place], [place] [address]Psky pcpozzerkai57.6 [degF]Normal 37.0ProMedica Lynn HospitalComment on above:Performed By: #### VBG ####[facility] ([id number])[address] [place], [place] [address]USR9 (Bld) [Moles/Vol]21.2 mmol/QDstkcj68.0-24.0ProMedica Lynn HospitalComment on above: Performed By: #### VBG ####[facility] ([address] [place] [address] [place], [place] [address]BYRD. O2 CONC.40 %NormalProMedica Phoenix HospitalComment on above:Performed By: #### VBG ####[facility] ([id number])[address] [place], [place] [address]Rdtgxa saturation in Blood62.0 %Low>80.0ProMedica Phoenix HospitalComment on above:Performed By: #### VBG ####[facility] ([address] [place] [address] [place], [place] [address]ESHWBD SOURCENCNormal ProMedica Phoenix HospitalComment on above:Performed By: #### VBG ####[facility] ([address] [place] [address])[address] [place], [place] [address]OUY3, VENOUS 62.5 ZKXPCzzj55-57WtnQtzfdi Phoenix HospitalComment on above:Performed By: #### VBG ####[facility] ([id number])[address] [place] [address] PH, VENOUS7.449Ccm0.320-7.420ProMedica Phoenix HospitalComment on above:Performed By: #### VBG ####[facility] ([id number])[address] [facility] [place] [address]UI4, RUEDTS73 KFUPZwmgfv73-21KphIpwuky [facility] Comment on above:Performed By: #### VBG ####[facility] ([id number])[address] [place], [place] [address]IAXFDM SITEN/ANormalProCincinnati Children'S Hospital Medical Centerca Phoenix HospitalComment on above:Performed By: #### VBG ####[facility] ([id number])[address] [place], [place] [address]MEKEQI TYPEVENOUSNormal ProMedica Phoenix HospitalComment on above:Performed By: #### VBG ####[facility] ([id number])[address] [place], [place] [address]DG CHEST 1 VWon 58-65-9366NT CHEST 1 VWNoalAultman Orrville HospitalBasophils Auto (Bld) [#/Vol]on 13-53-5142Sidvfcizc (Bld) [#/Vol]Automated basophil count0.0-0.1 [facility] HospitalBasophils/100 WBC Auto (Bld)on 06-12-2024 Basophils/100 WBC (Bld)Automated basophil %0.2-2.0[facility] HospitalEosinophils/100 WBC Auto (Bld)on 14-52-9013Swzxtmafphx/100 WBC (Bld) Automated eosinophil %Low0.9-7.0[facility] HospitalErythrocyte distribution width Auto (RBC) [Ratio]on 42-87-3946Lplimyagsdc distribution width (RBC) [Ratio]Erythrocyte distribution width [Ratio] by Automated countHigh 11.0-15.0[facility] HospitalEstimated glomerular filtration rate (GFR) non- Americanon 29-30-7435MJM/1.73 sq M.predicted among non-blacks MDRD (S/P/Bld) [Vol rate/Area]Estimated glomerular filtration rate (GFR) non- AmericanLow>=60 mL/min/1.73m 2FCleveland Clinic Marymount HospitalGlobulin Calc (S) [Mass/Vol]on 46-26-4011Xrclnwxm (S) [Mass/Vol]Serum globulin measurement by calculation (mass/volume)[facility] Hematocrit Auto (Bld) [Volume fraction]on 54-58-5583Oteozazewr (Bld) [Volume fraction]Hematocrit [Volume Fraction] of Blood by Automated vyhudEdm23.0-48.0 [facility] HospitalHemoglobin [Mass/volume] in Bloodon 06-12-2024 Hemoglobin (Bld) [Mass/Vol]Hemoglobin [Mass/volume] in GupeeWdx07.0-16.0 [facility] HospitalINR in Platelet poor plasma by Coagulation assayon 16-06-0600BEN Coag (PPP) [Relative time]INR in Platelet poor plasma by Coagulation assayThe Christ HospitalComment on above:DESIRED INR:2.0-3.0 CONDITIONS NOT LISTED BELOW2.5-3.5 FOR PROSTHETIC HEART VALVE REPLACEMENT2.5-3.5 RECURRENT THROMBOSISLaboratory - Chemistry and Chemistry - challengeon 44-12-4372Jktccmh [Mass/Vol]2.7 g/dLLow3.4-5.0[facility] HospitalALP [Catalytic activity/Vol]170 U/LQagw17-328DpynxzkmwThe Christ HospitalALT [Catalytic activity/Vol]11 U/TBdg74-36WrcdhwcarThe Christ HospitalAST [Catalytic activity/Vol]20 U/J94-44YulkzhhwtThe Christ HospitalBilirubin [Mass/Vol]0.6 mg/dL0.2-1.0[facility] Calcium [Mass/Vol]8.2 mg/dLLow8.5-10.1FCleveland Clinic Marymount HospitalChloride [Moles/Vol]96 mmol/IEbo94-399NovqnamurThe Christ HospitalCO2 [Moles/Vol] 18.4 mmol/LLow21.0-32.0[facility] HospitalCreatinine [Mass/Vol] 3.36 mg/dLHigh0.55-1.02[facility] HospitalGFR/1.73 sq M.predicted MDRD (S/P/Bld) [Vol rate/Area]17 mL/min/{1.73_m2}Low>=60 mL/min/1.73m 2FCleveland Clinic Marymount HospitalGlucose [Mass/Vol]68 mg/oMAwz25-562CpbsdoqxgThe Christ HospitalLactate [Moles/Vol]2.4 mmol/LCritically high0.4-2.0[facility] HospitalComment on above:RESULTS CALLED TO DAYSI SOTO RN at 2014Natriuretic peptide B (Bld) [Mass/Vol]pg/mLCritically high<=900.0The [facility] HospitalComment on above:RESULTS CALLED TO PAULINA SYED NP at otassium [Moles/Vol]4.8 mmol/L3.5-5.1FC[facility] Clinic [facility] Hospital Protein [Mass/Vol]6.9 g/dL6.4-8.2FGuernsey Memorial Hospitalodium [Moles/Vol]128 mmol/JFjq914-227ChptmaxfeThe Christ HospitalUrea nitrogen [Mass/Vol]39.0 mg/dLHigh7.0-18.0[facility] HospitalUrea nitrogen/Creatinine [Mass ratio]11.6 mg/mgThe [facility] Hospital Bilirubin Ql (U)NegativeNEGGreene Memorial HospitalGlucose (U) [Mass/Vol]NegativeNEGATIVEThe Christ HospitalKetones Ql (U) NegativeNEGGreene Memorial HospitalpH (U)5.5 [pH]5.0-9.0[facility]. Mary Hospitalpecific gravity (U) [Rel density]1.0251.005-1.025 [facility] HospitalUrobilinogen Qn (U)0.2 {Pascale'U}/dL0.2-1.0 [facility] HospitalLaboratory - Hematology and Cell countson 72-14-1492Viazebak granulocytes/100 WBC (Bld)1.1 %High0.0-0.5FCleveland Clinic Marymount HospitalLaboratory - Specimen informationon 84-06-5743Kfmlhbrzgy (U)SL CLOUDYCLEARFCleveland Clinic Marymount HospitalColor (U)YELLOWYELLOWThe Christ HospitalLaboratory - Urinalysison 17-24-8485Qcicmpktx esterase Test strip Ql (U)NegativeNEGGreene Memorial HospitalMucus Ql (Urine sed)NONE SEENNONE SEENThe Christ HospitalNitrite Ql (U) NegativeNEGGreene Memorial HospitalProtein Ql (U)>=300 mg/dL AbnormalNEG/TRACEThe Christ HospitalLeukocytes [#/volume] corrected for nucleated erythrocytes in Blood by Automated counon 27-00-2622OBI corrected for nucl RBC Auto (Bld) [#/Vol]Leukocytes [#/volume] corrected for nucleated erythrocytes in Blood by Automated coun4.0-11.0[facility] HospitalLymphocytes Auto (Bld) [#/Vol]on 34-71-3227Vjaojpjpnbi (Bld) [#/Vol]Lymphocytes [#/volume] in Blood by Automated countLow1.2-3.8The [facility] HospitalLymphocytes/100 WBC Auto (Bld)on 06-12-2024 Lymphocytes/100 WBC (Bld)Lymphocytes/100 leukocytes in Blood by Automated count Low20.5-60.0[facility] CenterH Auto (RBC) [Entitic mass]on 10-28-6403ASI (RBC) [Entitic mass]MCH [Entitic mass] by Automated count26.7-34.0 [facility] HospitalMCHC Auto (RBC) [Mass/Vol]on 93-95-4312GKIS (RBC) [Mass/Vol]MCHC [Mass/volume] by Automated count29.9-35.2FCleveland Clinic Marymount HospitalMCV Auto (RBC) [Entitic vol]on 93-36-6158QLL (RBC) [Entitic vol] MCV [Entitic volume] by Automated vgameFopj16.0-99.0[facility] HospitalMonocytes Auto (Bld) [#/Vol]on 61-14-6438Tyfxngzkf (Bld) [#/Vol]Automated blood monocyte count0.3-0.8[facility] HospitalMonocytes/100 WBC Auto (Bld)on 44-67-4011Xfpjxjegu/100 WBC (Bld)Automated monocyte %1.7-12.0 [facility] HospitalNeutrophils Auto (Bld) [#/Vol]on 06-12-2024 Neutrophils (Bld) [#/Vol]Neutrophils [#/volume] in Blood by Automated count 1.4-6.5FCleveland Clinic Marymount HospitalNeutrophils/100 WBC Auto (Bld)on 95-68-6811Euxmuleeeue/100 WBC (Bld)Automated neutrophil %High43.0-75.0[facility] HospitalNo Panel Informationon 84-88-5170Tmkuw Alcohol Level33 mg/dLThe Christ HospitalComment on above:NOTE: 80 mg/dl is the legal limit for a blood alcohol levelTroponin I High Bgeqraonvrt96.7 pg/mL Critically high4.0-51.3FCleveland Clinic Marymount HospitalComment on above:RESULTS CALLED TO PAULINA SYED [...] AND CLINICAL INFORMATION.Eosinophils # (Auto) 0.0 10 3/uL0.0-0.7FCleveland Clinic Marymount HospitalImmature Granulocyte # (Auto) 0.06 10 3/uLHigh0.00-0.03The [facility] HospitalUrine BacteriaMODERATE #/HPFAbnormalNONE [facility] TrumbullUrine Microscopic Review YESThe Christ HospitalUrine Occult BloodTRACE-INEGATIVEThe Christ HospitalUrine Other CastsNONE SEEN #/LPFNONE [facility] - TrumbullUrine Other CrystalsNone Seen #/HPFNone [facility] HospitalUrine RBC0-2 #/HPF0-2FC[facility] Clinic [facility] Hospital Urine Squamous Epithelial CellsFEW #/LPFAbnormalNONE/RAREThe Christ HospitalUrine WBC2-5 #/HPFAbnormalNONE [facility] - TrumbullPlatelet mean volume Auto (Bld) [Entitic vol]on 24-25-2915[place] mean volume (Bld) [Entitic vol]Platelet mean volume [Entitic volume] in Blood by Automated countLow9.5-13.5FCleveland Clinic Marymount HospitalPlatelets Auto (Bld) [#/Vol]on 33-99-1697Iytdkwkzi (Bld) [#/Vol]Platelets [#/volume] in Blood by Automated -801NteidqmbdThe Christ HospitalProthrombin time (PT)on 41-77-5359LL Coag (PPP) [Time]Prothrombin time (PT)High9.0-11.6FCleveland Clinic Marymount HospitalRBC Auto (Bld) [#/Vol]on 79-77-2141HRH (Bld) [#/Vol] Erythrocytes [#/volume] in Blood by Automated countLow4.20-5.40Mount St. Mary Hospitalerum or plasma albumin/globulin mass ratioon 06-12-2024 Albumin/Globulin [Mass ratio]Serum or plasma albumin/globulin mass ratio [facility] Mary Hospitalerum or plasma anion gap determinationon 90-61-3470Gonef gap [Moles/Vol]Serum or plasma anion gap determinationThe Christ HospitalUrine Cultureon 44-46-8590Laeljakq identified Cx Nom (U) No Growth 2 Days PERFORMED BY: [place] [address] PATHOLOGIST QUALITY ASSURANCE MANAGER SALLY RENNER M.D.NormalThe Atrium Health Southpark Physician GroupComment on above: Performed By: #### CUU #### [place] [address] USAPathology study report documentOrdered By: Maury Schafer on 59-07-4922Rhlbozjii studyThe Christ Hospital Other lon 02-19-2024 Specimen: [id number] Received: 02/20/24 Status: MARCELO Sanchez Num: [id number] Spec Type: Surgical Subm Dr: Cody Neves MD Tissues: A BREAST CORE NO CALCS (LEFT BREAST) Procedures: HE/4, Gross/Micro L4 Age/ Patient Sex Location Account Attending Physician Orestes Alvares 59/F [place] [id number] Katie Velasquez APRN, SPEC NUM: [id number] RECD: 02/20/24 STATUS: MARCELO SANCHEZ NUM: [id number] LYNDSEY: 02/19/24-[address] [facility] [address]: Cody Neves MD ENTERED: 02/20/[address]: Ghassan,Chinmay Velasquez APRN, [facility] SPEC TYPE: Surgical DEPT: JUANIS PERES ENTERED BY: [id number] RECV BY: [id number] ORDERED: HE/4, Gross/Micro L4 ORDERED: HE/4, Gross/Micro [...] Time specimen placed in formalin: 1506 Specimen: [id number] Received: 02/20/24 Status: MARCELO Sanchez Num: [id number] Spec Type: Surgical Subm Dr: Cody Neves MD Tissues: A BREAST CORE NO CALCS (LEFT BREAST) Procedures: /Caroline, Gross/Micro L4 Patient: Orestes Alvares [id number] (Continued) Specimen: [id number] Received: 02/20/24 (Continued) Gross Description (Continued) Signed (signature on file) Maury Schafer MD 02/22/24 1036 Specimen: [id number] Received: 02/20/24 Status: MARCELO Sanchez Num: [id number] Spec Type: Surgical Subm Dr: Cody Neves MD Tissues: A BREAST CORE NO CALCS (LEFT BREAST) Procedures: /, Gross/Micro L4 Patient: Orestes Alvares [id number] (Continued) Specimen: [id number] Received: 02/20/24 (Continued) Gross Description (Continued) Cold ischemic time: 2 minutes Total fixation time: 26 hours and 30 minutes (2, lio, XL40-585 A) Batool Microscopic Description Microscopic examination is performed. CPT Codes 62287 Specimen: [id number] Received: 02/20/24 Status: MARCELO Sanchez Num: [id number] Spec Type: Surgical Subm Dr: Cody Neves MD Tissues: A BREAST CORE NO CALCS (LEFT BREAST) Procedures: , Gross/Micro L4 Patient: Orestes Alvares [id number] (Continued) Signed (signature on file) Maury Schafer MD 02/22/24 1036Normal The [facility]park Physician GroupActivated partial thromboplastin time (aPTT) in platelet poor plasma by coagulation aOrdered By: Caden Jarrell on 36-49-2209dASN Coag (PPP) [Time]30.8 s25.1-36.5FCleveland Clinic Marymount HospitalBasophils Auto (Bld) [#/Vol]Ordered By: Caden Jarrell on 83-96-2081Yviqqssij (Bld) [#/Vol]0.1 10*3/uL0.0-0.2FCleveland Clinic Marymount HospitalBasophils/100 WBC Auto (Bld) Ordered By: Caden Jarrell on 04-45-2648Penugonxw/100 WBC (Bld)0.9 %.The [facility] HospitalCreatine kinase [Enzymatic activity/volume] in Serum or PlasmaOrdered By: Caden Jarrell on 92-00-6869TJ [Catalytic activity/Vol]33 U/L 22-269The [facility] HospitalCreatinine and Glomerular filtration rate.predicted panel (S/P/Bld)Ordered By: Caden Jarrell on 41-67-3934Euhcopszcq [Mass/Vol]1.34 mg/dL0.44-1.03The [facility] HospitalEosinophils Auto (Bld) [#/Vol]Ordered By: Caden Jarrell on 87-94-6300Yhxtzrgxnbh (Bld) [#/Vol]0.0 10*3/uL0.0-0.45The [facility] HospitalEosinophils/100 WBC Auto (Bld) Ordered By: Caden Jarrell on 29-16-9233Wpxacvjcuik/100 WBC (Bld)0.2 %.The [facility] HospitalErythrocyte distribution width Auto (RBC) [Ratio]Ordered By: Caden Jarrell on 67-37-8610Sovbifmmjwv distribution width (RBC) [Ratio]13.6 % 11.9-15.3FCleveland Clinic Marymount HospitalEstimated glomerular filtration rate (GFR) non- AmericanOrdered By: Caden Jarrell on 03-02-9336IBO/1.73 sq M.predicted among non-blacks MDRD (S/P/Bld) [Vol rate/Area]40 mL/MinThe Christ HospitalHematocrit Auto (Bld) [Volume fraction]Ordered By: Caden Jarrell on 49-60-2164Tfcjumainb (Bld) [Volume fraction]31.6 %34.0-46.4FCleveland Clinic Marymount HospitalHemoglobin [Mass/volume] in BloodOrdered By: Caden Jarrell on 71-54-9757Pvvgmmdtzj (Bld) [Mass/Vol]11.0 g/dL11.8-15.4FCleveland Clinic Marymount HospitalLaboratory - Chemistry and Chemistry - challengeOrdered By: Caden Jarrell on 68-59-0595Krcfbqtueup peptide B (Bld) [Mass/Vol]1767.0 pg/mL5-100 [facility] HospitalLaboratory - CoagulationOrdered By: Caden Jarrell on 58-86-3586FY Coag (PPP) [Time]13.2 s9.0-12.9The [facility] HospitalLeukocytes [#/volume] corrected for nucleated erythrocytes in Blood by Automated counOrdered By: Caden Jarrell on 34-51-6659UKD corrected for nucl RBC Auto (Bld) [#/Vol]7.8 10*3/uL3.8-11.6FCleveland Clinic [facility] Hospital Lymphocytes Auto (Bld) [#/Vol]Ordered By: Caden Jarrell on 62-64-5365Qsnryxdztsd (Bld) [#/Vol]0.8 10*3/uL1.00-4.8The [facility] HospitalLymphocytes/100 WBC Auto (Bld)Ordered By: Caden Jarrell on 33-98-5898Umrapywwivz/100 WBC (Bld) 10.6 %.[facility] Auto (RBC) [Entitic mass]Ordered By: Caden Jarrell on 88-25-6527RSS (RBC) [Entitic mass]32.1 pg24.7-34.3FCleveland Clinic Marymount HospitalMCHC Auto (RBC) [Mass/Vol]Ordered By: Caden Jarrell on 07-44-8839UCML (RBC) [Mass/Vol]34.7 g/dL32.0-35.0The [facility] HospitalMCV Auto (RBC) [Entitic vol]Ordered By: Caden Jarrell on 83-47-8806JBR (RBC) [Entitic vol]92.3 cN83-498MeclfuvgoThe Christ HospitalMonocyte distribution width [Entitic volume] in Blood by AutomatedOrdered By: Caden Jarrell on 07-60-8097Xojffipq distribution width Auto (Bld) [Entitic vol]19.45 %0.00-20.00 The [facility] HospitalMonocytes Auto (Bld) [#/Vol]Ordered By: Caden Jarrell on 32-00-2390Kutenpztv (Bld) [#/Vol]0.8 10*3/uL0.0-0.8The [facility] HospitalMonocytes/100 WBC Auto (Bld)Ordered By: Caden Jarrell on 03-15-2022 Monocytes/100 WBC (Bld)10.2 %.The [facility] HospitalNeutrophils Auto (Bld) [#/Vol]Ordered By: Caden Jarrell on 72-83-2887Eivqrjgskrm (Bld) [#/Vol]6.1 10*3/uL1.8-7.7FCleveland Clinic Marymount HospitalNeutrophils/100 WBC Auto (Bld) Ordered By: Caden Jarrell on 91-77-2602Lvhpjfnfxgi/100 WBC (Bld)78.1 %.The [facility] HospitalNo Panel InformationOrdered By: Caden Jarrell on 03-15-2022 Estimated GFR ()49 mL/MinThe Christ Hospital Comment on above:GFR estimated reference range: According to KDOQI guidelines, <60 ml/min/1.73m2 is sufficient todiagnose a patient with chronic kidney disease.Pharmacy Creatinine Clearance (Chem43.20The Christ HospitalNucleated erythrocytes [Presence] in Blood by Automated countOrdered By: Caden Jarrell on 55-19-6205Qcdjgdaik RBC Auto Ql (Bld)0.1 /100{WBC}0-0.5FCleveland Clinic Marymount HospitalPlatelet mean volume Auto (Bld) [Entitic vol]Ordered By: Caden Jarrell on 60-49-3571Xmrwpyll mean volume (Bld) [Entitic vol]7.1 fL6.3-10.7 The [facility] HospitalPlatelet poor plasma international normalized ratio (INR) by coagulation assay (relatOrdered By: Caden Jarrell on 1963WKL Coag (PPP) [Relative time]1.2 {INR}The [facility] HospitalComment on above:INR Therapeutic Range A) Pre- [...] Caden Jarrell on 03-15-2022 Platelets (Bld) [#/Vol]277 10*3/dC506-638BviauxlcbThe Christ HospitalRBC Auto (Bld) [#/Vol]Ordered By: Caden Jarrell on 13-19-3258VEQ (Bld) [#/Vol]3.43 10*6/uL3.60-5.00[facility] Mary Hospitalerum or plasma anion gap determinationOrdered By: Caden Jarrell on 44-55-4267Tkxgr gap [Moles/Vol]14.5 mmol/L6.0-15.0[facility] Mary Hospitalerum or plasma calcium measurement (mass/volume)Ordered By: Caden Jarrell on 59-22-3917Kojrpjf [Mass/Vol] 9.3 mg/dL8.2-10.2FGuernsey Memorial Hospitalerum or plasma chloride measurement (moles/volume)Ordered By: Caden Jarrell on 67-43-5576Jjlkbmdc [Moles/Vol]95 mmol/V52-443KzcgxooegMount St. Mary Hospitalerum or plasma creatine kinase MB (CKMB)/total creatine kinase (CK) ratio by calculaOrdered By: Caden Jarrell on 79-41-3560AL.MB Calc [Catalytic fraction]5.1 %0.00-2.50[facility] St. Mary Hospitalerum or plasma creatine kinase MB measurement (mass/volume)Ordered By: Caden Jarrell on 56-98-8925UY.MB [Mass/Vol]1.7 ng/mL 0.6-6.3FGuernsey Memorial Hospitalerum or plasma glucose measurement (mass/volume)Ordered By: Caden Jarrell on 37-59-4579Iammkss [Mass/Vol]129 mg/dL 70-100The Christ HospitalComment on above:ADA recommended reference rangeRandom Glucose Reference Range is dependent on time and content of last meal. Glucose of more than 200 mg/dL in a nonstressed, ambulatory subject supports the diagnosisof Diabetes Mellitus.Serum or plasma potassium measurement (moles/volume)Ordered By: Caden Jarrell on 46-75-0606Tgqqkxpeq [Moles/Vol]3.4 mmol/L3.5-5.1FGuernsey Memorial Hospitalerum or plasma sodium measurement (moles/volume)Ordered By: Caden Jarrell on 63-94-4765Frachx [Moles/Vol]129 mmol/C400-325ZueeqyyzkMount St. Mary Hospitalerum or plasma total carbon dioxide measurement (moles/volume)Ordered By: Caden Jarrell on 05-82-5890SB5 [Moles/Vol]22.9 mmol/L22.0-30.0[facility] Serum or plasma urea nitrogen measurement (mass/volume)Ordered By: Caden Jarrell on 04-23-0363Unsa nitrogen [Mass/Vol]14 mg/dL9-23The [facility] HospitalTroponin I.cardiac [Mass/volume] in Serum or Plasma by High sensitivity methodOrdered By: Caden Jarrell on 93-38-3960Dpaehojw I.cardiac High sensitivity method [Mass/Vol]24 pg/mL0-15The [facility] HospitalWBC Auto (Bld) [#/Vol]Ordered By: Caden Jarrell on 34-49-4952CKU (Bld) [#/Vol]7.8 10*3/uL3.8-11.6 The [facility] HospitalCBC AUTO DIFFon 83-66-0613JVEV #0.0 103/ul Normal0.0-0.1The [facility] Bryan HospitalComment on above:Performed By: #### HSTROPN #### [facility] [address] [address] [address] Debra Hutchinsphils/100 WBC (Bld)0.5 %Normal0.2-2.0The [facility] Comment on above:Performed By: #### HSTROPN #### [facility] [address] [place], [place] [address] Dr. Debra Villasenor #0.1 103/ulNormal0.0-0.7The [facility] HospitalComment on above: Performed By: #### HSTROPN #### [facility] [address] [place] [address] Dr. Debra Gallegoosinophils/100 WBC (Bld)1.4 %Normal0.9-7.0The [facility] Comment on above:Performed By: #### HSTROPN #### [facility] [address] [place] [address] Dr. Debra Gallegorythrocyte distribution width (RBC) [Ratio]14.1 %Oqeogc32.0-15.0 The [facility] HospitalComment on above:Performed By: #### HSTROPN #### [facility] [address] [place] [address] Dr. Debra BlakeHematocrit (Bld) [Volume fraction]26.2 %Critically low36.0-48.0 [facility] HospitalComment on above:Performed By: #### HSTROPN #### [facility] [address] [place] [address] Dr. Debra BlakeHemoglobin (Bld) [Mass/Vol]9.1 g/dLCritically low12.0-16.0The [facility] HospitalComment on above:Performed By: #### HSTROPN #### [facility] [address] [place] [address] Dr. Debra Bay #0.03 10e3/ulNormal0.00-0.03The [facility] HospitalComment on above:Performed By: #### HSTROPN #### [facility] [address] [place] [address] Dr. Debra Bay %0.4 %Normal0.0-0.5The [facility] HospitalComment on above: Performed By: #### HSTROPN #### [facility] [address] [place] [address] Dr. Debra Early #1.5 103/ulNormal1.2-3.8The [facility] HospitalComment on above:Performed By: #### HSTROPN #### [facility] [address] [place] [address] Dr. Debra Iglesiasmphocytes/100 WBC (Bld)19.0 %Critically low20.5-60.0The [facility] HospitalComment on above:Performed By: #### HSTROPN #### [facility] [address] [place] [address] Dr. Debra ObrienUAL DIFF REQNONormalThe [facility] HospitalComment on above: Performed By: #### HSTROPN #### [facility] [address] [place] [address] Dr. Debra Recio (RBC) [Entitic mass]34.3 pgCritically high26.7-34.0The [facility] HospitalComment on above:Performed By: #### HSTROPN #### [facility] [address] [place] [address] Dr. Debra Recio (RBC) [Mass/Vol]34.7 g/yAUgtfcv90.9-35.2The [facility] HospitalComment on above:Performed By: #### HSTROPN #### [facility] [address] [place] [address] Dr. Debra Recio (RBC) [Entitic vol]98.9 zQUacppr25.0-99.0The [facility] HospitalComment on above:Performed By: #### HSTROPN #### [facility] [address] [place] [address] Dr. Dbera Hallman #0.8 103/ulNormal0.3-0.8The [facility] HospitalComment on above:Performed By: #### HSTROPN #### [facility] [address] [place] [address] Dr. Debra Spauldingocytes/100 WBC (Bld)10.0 %Normal1.7-12.0The [facility] Comment on above:Performed By: #### HSTROPN #### [facility] [address] [place] [address] Dr. Debra Valdovinos #5.5 103/ulNormal1.4-6.5The [facility] HospitalComment on above:Performed By: #### HSTROPN #### [facility] [address] [place] [address] Dr. Debra BlakeNeutrophils/100 WBC (Bld)68.7 %Jkuuwj45.0-75.0The [facility] HospitalComment on above:Performed By: #### HSTROPN #### [facility] [address] [place] [address] Dr. Debra BlakePlatelet mean volume (Bld) [Entitic vol]9.5 fLNormal9.5-13.5The [facility] HospitalComment on above:Performed By: #### HSTROPN #### [facility] [address] [place] [address] Dr. Debra BlakePLT300 103/mvYednnc929-073Wrh [facility] HospitalComment on above: Performed By: #### HSTROPN #### [facility] [address] [place] [address] Dr. Debra BlakeRBC2.65 106/ulCritically low4.20-5.40The [facility] HospitalComment on above:Performed By: #### HSTROPN #### [facility] [address] [place] [address] Dr. Debra BlakeWBC8.1 103/ulNormal4.0-11.0The [facility] HospitalComment on above: Performed By: #### HSTROPN #### [facility] [address] [place] [address] Dr. Debra BlakeCovid-19 PCR ([facility])on 40-75-9468CPDV-CoV-2 (COVID-19) RNA YVONNE+probe Ql (Unsp spec)Not detectedNormalNOT DETECTEDThe [facility] Comment on above:Result Comment: When diagnostic [...] for this test is supported by the [place] of Health and Human Service's declaration that [...] longer be used).Performed By: #### CVDTBH #### [facility] [address] [place] [address] Dr. Debra Johnson URINE PROFILEon [id number] Ql (U)NegativeNormal NEGATIVEGeorgetown Behavioral HospitalComment on above:Performed By: #### HSTROPN #### [facility] [address] [place] [address] Dr. Debra BlakeClarity (U)CLEARNormalCLEARGeorgetown Behavioral HospitalComment on above: Performed By: #### HSTROPN #### [facility] [address] [place] [address] Dr. Debra Pedroza (U)LT. YELLOWNormalYELLOWGeorgetown Behavioral HospitalComment on above:Performed By: #### HSTROPN #### [facility] [address] [place] [address] Dr. Debra Francisco micrscopic examination will be performed if indicated. NormalGeorgetown Behavioral HospitalComment on above:Performed By: #### HSTROPN #### [facility] [address] [place] [address] Dr. Debra BlakeGlucose Ql (U)NegativeNormalNEGATIVEGeorgetown Behavioral HospitalComment on above:Performed By: #### HSTROPN #### [facility] [address] [place] [address] Dr. Debra BlakeHemoglobin Ql (U)NegativeNormalNEGATIVEGeorgetown Behavioral Hospital Comment on above:Performed By: #### HSTROPN #### [facility] [address] [place] [address] Dr. Debra Ni Ql (U)NegativeNormalNEGATIVEThe [facility] HospitalComment on above:Performed By: #### HSTROPN #### [facility] [address] [place] [address] Dr. Debra BlakeLEUKOCYTESNegativeNormalNEGATIVEThe [facility] HospitalComment on above:Performed By: #### HSTROPN #### [facility] [address] [place] [address] Dr. Debra Dwyertrite Ql (U)NegativeNormalNEGATIVEThe [facility] HospitalComment on above:Performed By: #### HSTROPN #### [facility] [address] [place] [address] Dr. Debra BlakepH (U)7.0 [pH]Normal5-9The [facility] HospitalComment on above: Performed By: #### HSTROPN #### [facility] [address] [place] [address] Dr. Debra BlakeSPEC GRAVITY1.383Qecuva5.005-<=1.025The [facility] HospitalComment on above:Performed By: #### HSTROPN #### [facility] [address] [place] [address] Dr. Debra Diamond PROTEINTRACENormalNEGATIVE/ TRACEThe [facility] HospitalComment on above:Performed By: #### HSTROPN #### [facility] [address] [place] [address] Dr. Debra BlakeUR MICRO INDNOT INDICATEDNormalThe [facility] HospitalComment on above:Performed By: #### HSTROPN #### [facility] [address] [place] [address] Dr. Debra BlakeUrobilinogen Qn (U)0.2 {Pascale'U}/dLNormal0.2 - 1.0The [facility] HospitalComment on above:Performed By: #### HSTROPN #### [facility] [address] [place] [address] Dr. Debra GallegoTHANOL (BLD ALC)on 72-75-2757EBJ NOTENOTE: 80 mg/dl is the legal limit for a blood alcohol levelNoThe University of Toledo Medical CenterComment on above: Performed By: #### ETH #### [facility] [address] [place] [address] Dr. Debra Gallegothanol [Mass/Vol]mg/dLNoThe University of Toledo Medical CenterComment on above:Performed By: #### ETH #### [facility] [address] [place] [address] Dr. Debra BlakePROF CHEM 8 (BAS METB)on 58-98-8389Dorkb gap [Moles/Vol]14.8 mmol/LNormalThe [facility] HospitalComment on above:Performed By: #### HSTROPN, CMP #### [facility] [address] [place] [address] Dr. Debra BlakeCalcium [Mass/Vol]7.6 mg/dLCritically low8.5-10.1The [facility] HospitalComment on above:Performed By: #### HSTROPN, CMP #### [facility] [address] [place] [address] Dr. Debra BlakeChloride [Moles/Vol]93 mmol/LCritically ven70-234Mhx [facility] HospitalComment on above:Performed By: #### HSTROPN, CMP #### [facility] [address] [place] [address] Dr. Debra BlakeCO2 [Moles/Vol]30.6 mmol/RSexqvt44.0-32.0The [facility] Comment on above:Performed By: #### HSTROPN, CMP #### [facility] [address] [place] [address] Dr. Debra BlakeCreatinine [Mass/Vol]2.27 mg/dLCritically high0.55-1.02The [facility] HospitalComment on above:Performed By: #### HSTROPN, CMP #### [facility] [address] [place] [address] Dr. Richardson ChangEGFR-AF MKNOSVRP57 mL/min/1.73m2Nybuazefsb low>=60The [facility]assan HospitalComment on above:Performed By: #### HSTROPN, CMP #### [facility] [address] [address] [address] Debra GallegoGFR-NON AF FMBFKNXI68 mL/min/1.76y5Jinjyuvydp low>=60The [facility] on above:Performed By: #### HSTROPN, CMP #### [facility] [address] [address] [address] Debra BlakeGlucose [Mass/Vol]114 mg/dLCritically nobp72-383Otq [facility] on above:Performed By: #### HSTROPZelalem, CMP #### [facility] [address] [address] [address] Debra BlakePotassium [Moles/Vol]3.4 mmol/LCritically low3.5-5.1The [facility] on above:Performed By: #### HSJORGE, CMP #### [facility] [address] [address] [address] Debra BlakeSodium [Moles/Vol]135 mmol/LCritically mfz253-476Reg [facility] on above:Performed By: #### HSTRKATHY, CMP #### [facility] [address] [address] [address] Debra BlakeUrea nitrogen [Mass/Vol]20.0 mg/dLCritically high7.0-18.0The [facility] on above:Performed By: #### HSTROPZelalem, CMP #### [facility] [address] [place] [address] Dr. Debra BlakeUrea nitrogen/Creatinine [Mass ratio]8.8 mg/mgNormalThe [facility] on above:Performed By: #### HSTROPZelalem, CMP #### [facility] [address] [place] [address] Dr. Debra Metz, HIGH SENSITIVITYon 96-56-7763VBEZHO49.7 pg/mLNormal 4.0-51.3The [facility] on above:Result Comment: CUT-OFF POINTS HAVE BEEN ESTABLISHED BASED ON THE FOURTH UNIVERSAL DEFINITIONS OF MYOCARDIAL INFARCTION. THE UPPER REFERENCE LIMIT (URL) OF TROPONIN, DEFINED THE 99TH PERCENTILE OF cTnI DISTRIBUTION IN A REFERENCE POPULATION, HAS BEEN CONFIRMED THE DECISION THRESHOLD FOR MS DIAGNOSIS.Performed By: #### HSTROPN #### [facility] [address] [address] [address] Debra BlakeXR CHEST 1 Von 54-05-8223FB CHEST 1 VEXAMINATION: XR CHEST 1 V [...] Electronically authenticated by: DENISE MESSER Date: 2021-12-19 15:[address] [place], [place] [address]Basophils Auto (Bld) [#/Vol]Ordered By: Hong Jewell on 87-66-1299Cwgrofyck (Bld) [#/Vol]0.1 10*3/uL0.0-0.2FCleveland Clinic Marymount HospitalBasophils/100 WBC Auto (Bld)Ordered By: Hong Jewell on 12-10-2021 Basophils/100 WBC (Bld)0.9 %.[facility] HospitalBlood hemoglobin measurement (mass/volume)Ordered By: Hong Jewell on 12-10-2021 Hemoglobin (Bld) [Mass/Vol]7.5 g/dL11.8-15.4FCleveland Clinic Marymount Hospital Blood leukocytes automated count (number/volume)Ordered By: Hong Jewell on 51-40-9226OAM (Bld) [#/Vol]6.3 10*3/uL4.5-11.0[facility] HospitalCreatinine and Glomerular filtration rate.predicted panel (S/P/Bld)Ordered By: Hong Jewell on 64-30-8576Yosuulshvj [Mass/Vol]1.84 mg/dL0.44-1.03 [facility] HospitalEosinophils Auto (Bld) [#/Vol]Ordered By: Hong Jewell on 69-89-0680Pbeqidzvcxm (Bld) [#/Vol]0.2 10*3/uL0.0-0.45 [facility] HospitalEosinophils/100 WBC Auto (Bld)Ordered By: Hong Jewell on 83-07-7233Gepfgpslgjr/100 WBC (Bld)3.5 %.[facility] HospitalErythrocyte distribution width Auto (RBC) [Ratio]Ordered By: Hong Jewell on 83-02-9685Euroyzqnwmx distribution width (RBC) [Ratio]16.3 %11.9-15.3FCleveland Clinic Marymount HospitalEstimated glomerular filtration rate (GFR) non- AmericanOrdered By: Hong Jewell on 40-44-9664ZKT/1.73 sq M.predicted among non-blacks MDRD (S/P/Bld) [Vol rate/Area]28 mL/MinThe Christ HospitalHematocrit Auto (Bld) [Volume fraction]Ordered By: Hong Jewell on 36-43-7835Iigaevwsqj (Bld) [Volume fraction]22.8 %34.0-46.4FCleveland Clinic Marymount HospitalLaboratory - Chemistry and Chemistry - challengeOrdered By: Hong Jewell on 83-86-7959Uriqbqjsr [Mass/Vol]0.7 mg/dL1.6-2.6FCleveland [facility] Hospital Comment on above:Results called at 0825 on 12/10/21Laboratory - Hematology and Cell countsOrdered By: Hong Jewell on 75-11-5382Pmxjmlcdp RBC/100 WBC (Bld) [Ratio]0.0 %0-0.5FCleveland Clinic Marymount HospitalLymphocytes Auto (Bld) [#/Vol]Ordered By: Hong Jewell on 52-62-3663Qhrsuezaypd (Bld) [#/Vol]1.4 10*3/uL1.00-4.8The [facility] HospitalLymphocytes/100 WBC Auto (Bld)Ordered By: Hong Jewell on 63-97-3669Yfbpqxhxopu/100 WBC (Bld)21.7 %.[facility] HospitalMC Auto (RBC) [Entitic mass]Ordered By: Hong Jewell on 35-90-6860UHJ (RBC) [Entitic mass]34.3 pg24.7-34.3FCleveland Clinic Marymount HospitalMCHC Auto (RBC) [Mass/Vol]Ordered By: Hong Jewell on 12-10-2021 MCHC (RBC) [Mass/Vol]33.0 g/dL32.0-35.0The [facility] HospitalMCV Auto (RBC) [Entitic vol]Ordered By: Hong Jewell on 35-74-8357CWP (RBC) [Entitic vol]103.8 qM71-188EzziigsenThe Christ HospitalMonocytes Auto (Bld) [#/Vol]Ordered By: Hong Jewell on 50-24-7272Zwiysghet (Bld) [#/Vol]0.7 10*3/uL0.0-0.8The [facility] HospitalMonocytes/100 WBC Auto (Bld) Ordered By: Hong Jewell on 37-22-8610Tdabthvas/100 WBC (Bld)11.2 %. [facility] HospitalNeutrophils Auto (Bld) [#/Vol]Ordered By: Hong Jewell on 04-62-4570Iassmlrgrce (Bld) [#/Vol]3.9 10*3/uL1.8-7.7 [facility] HospitalNeutrophils/100 WBC Auto (Bld)Ordered By: Hong Jewell on 47-38-2431Qykbijmwsuf/100 WBC (Bld)62.7 %.[facility] HospitalNo Panel InformationOrdered By: Hong Jewell on 83-61-9739Ehnoislvu GFR ()34 mL/MinThe Christ HospitalComment on above:GFR estimated reference range: According to KDOQI guidelines, <60 ml/min/1.73m2 is sufficient todiagnose a patient with chronic kidney disease.Pharmacy Creatinine Clearance (Chem36.70The [facility] HospitalPlatelet mean volume Auto (Bld) [Entitic vol]Ordered By: Hong Jewell on 25-37-8725Ckookidn mean volume (Bld) [Entitic vol]6.7 fL 6.3-10.7FCleveland Clinic Marymount HospitalPlatelets Auto (Bld) [#/Vol]Ordered By: Hong Jewell on 93-94-1758Hspchuytb (Bld) [#/Vol]356 10*3/xL169-710 [facility] HospitalRBC Auto (Bld) [#/Vol]Ordered By: Hong Jewell on 13-10-6630HRG (Bld) [#/Vol]2.20 10*6/uL3.60-5.00[facility] Mary Hospitalerum or plasma anion gap determinationOrdered By: Hong Jewell on 41-38-6362Rzfqd gap [Moles/Vol]TNPThe [facility] Hospital Comment on above:Test not performedSerum or plasma calcium measurement (mass/volume)Ordered By: Hong Jewell on 73-89-8665Lkllrnt [Mass/Vol]9.0 mg/dL8.2-10.2FGuernsey Memorial Hospitalerum or plasma chloride measurement (moles/volume)Ordered By: Hong Jewell on 32-10-6047Xzgkfwkb [Moles/Vol]104 mmol/R07-142TxpsitavcMount St. Mary Hospitalerum or plasma glucose measurement (mass/volume)Ordered By: Hong Jewell on 12-10-2021 Glucose [Mass/Vol]137 mg/gY35-014XmqcszpchThe Christ HospitalComment on above:ADA recommended reference range Random Glucose Reference Range is dependent on time and content of last meal. Glucose of more than 200 mg/dL in a nonstressed, ambulatory subject supports the diagnosis of Diabetes Mellitus.Serum or plasma potassium measurement (moles/volume)Ordered By: Hong Jewell on 34-50-2114Asxevsujr [Moles/Vol]4.7 mmol/L3.5-5.1FGuernsey Memorial Hospitalerum or plasma sodium measurement (moles/volume)Ordered By: Hong Jewell on 12-10-2021 Sodium [Moles/Vol]131 mmol/S218-512ResqpxlhiMount St. Mary Hospitalerum or plasma total carbon dioxide measurement (moles/volume)Ordered By: Hong Jewell on 50-42-4044YA2 [Moles/Vol]21.1 mmol/L22.0-30.0Mount [facility]. Mary Hospitalerum or plasma urea nitrogen measurement (mass/volume)Ordered By: Hong Jewell on 42-63-2097Eyfa nitrogen [Mass/Vol]21 mg/dL9-23Mount St. Mary Hospitalerum DNA double strand antibody assay (units/volume) Ordered By: William Esposito on 73-82-9055YSQ double strand Ab Qn (S)[IU]/mL0-9 The [facility] HospitalComment on above:Negative <5 Equivocal 5 - 9 Positive >9 Performed at: [facility] [id number] [employer]er: Sanford eMhta PhD, Phone: [phone] [Mass/volume] in Serum or PlasmaOrdered By: William Esposito on 86-91-9338Lmljgtb [Mass/Vol]2.6 g/dL 2.9-4.4FCleveland Clinic Marymount HospitalAlbumin/Protein.total in 24 hour Urine by ElectrophoresisOrdered By: William Esposito on 00-51-5187Bnkqked Elph (24H U) [Mass fraction]69.2 %.[facility] HospitalCreatinine [Mass/volume] in UrineOrdered By: William Esposito on 02-19-1004Axeszgcspu (U) [Mass/Vol]153.0 mg/dLThe Christ HospitalComment on above:No reference range establishedGamma globulin/Protein.total in 24 hour Urine by Electrophoresis Ordered By: William Esposito on 13-33-8870Prrvi globulin Elph (24H U) [Mass fraction] 8.2 %.The [facility] HospitalIgA [Mass/volume] in Serum or Plasma Ordered By: William Esposito on 15-34-7274LhC [Mass/Vol]357 mg/aJ60-238VnehxrenwThe Christ HospitalIgG [Mass/volume] in Serum or PlasmaOrdered By: William Esposito on 92-83-7131UaD [Mass/Vol]794 mg/tO791-6857KicrofyecThe Christ HospitalIgM [Mass/volume] in Serum or PlasmaOrdered By: William Esposito on 12-07-2021 IgM [Mass/Vol]109 mg/eL11-599VinljqmutThe Christ HospitalComment on above: Performed at: [facility] [id number] [employer]: Sanford Mehta PhD, Phone: [phone] for Urine Ordered By: William Esposito on 74-09-6948Bcgcgggjlxsbyy Immunofixation (U) [Interp] Comment:.The [facility] HospitalComment on above:Presence of monoclonal protein is unclear at this time. Suggest repeat in 3 to 6 months if clinically indicated. Performed at: [facility] [id number] [employer]: Sanford Mehta PhD, Phone: [phone] light chains.kappa.free [Mass/volume] in SerumOrdered By: William Esposito on 12-07-2021 Immunoglobulin light chains.kappa.free (S) [Mass/Vol]81.9 mg/L3.3-19.4FCleveland Clinic Marymount HospitalImmunoglobulin light chains.kappa.free/Immunoglobulin light chains.lambda.free [MassOrdered By: William Esposito on 12-07-2021 Immunoglobulin light chains.kappa.free/Immunoglobulin light chains.lambda.free (S) [Mass ratio]1.310.26-1.65The [facility] HospitalComment on above: Performed at: [facility] [employer] [id number] [employer]: Sanford Mehta PhD, Phone: [phone] light chains.lambda.free [Mass/volume] in Serum or PlasmaOrdered By: William Vaibhav on 92-19-0777Xjnqpntnhsqhao light chains.lambda.free [Mass/Vol]62.3 mg/L5.7-26.3 [facility] HospitalNo Panel InformationOrdered By: William Esposito on 66-92-7344Hkqjb Random Prot Electrophor NoteSee comment.The [facility] HospitalComment on above:Protein electrophoresis scan will follow via computer, mail, or air hoist operator delivery. Performed at: [address] [id number] [employer]: Sanford Mehta PhD, Phone: [phone] Electrophoresis M-SpikeNot observed g/dLNot ObservedThe Christ HospitalProtein Electrophoresis NoteSee comment.The [facility] HospitalComment on above:Protein electrophoresis scan will follow via computer, mail, or air hoist operator delivery. Performed at: [address] [id number] [employer]: Sanford Mehta PhD, Phone: [phone] ImmunofixationSee comment.The Christ HospitalComment on above:No monoclonality detected.Protein [Mass/volume] in Serum or PlasmaOrdered By: William Esposito on 48-52-0347Oxtmfab [Mass/Vol]5.2 g/dL6.0-8.5FCleveland Clinic [facility] Hospital Protein [Mass/volume] in UrineOrdered By: William Vaibhav on 34-33-7401Oaqgigz (U) [Mass/Vol]51.3 mg/dLNot Estab.[facility] Protein.monoclonal/Protein.total in 24 hour Urine by ElectrophoresisOrdered By: William Esposito on 61-58-0103Teopbmv.monoclonal Elph (24H U) [Mass fraction]Not observed %Not ObservedMount St. Mary Hospitalerum globulin measurement (mass/volume)Ordered By: William Vaibhav on 97-42-8703Ufacfiof (S) [Mass/Vol]2.6 g/dL2.2-3.9Mount [facility] Mary Hospitalerum or plasma albumin/globulin mass ratioOrdered By: William Vaibhav on 80-74-6607Fsrznvm/Globulin [Mass ratio]1.0 {ratio}0.7-1.7FGuernsey Memorial Hospitalerum or plasma alpha 1 globulin measurement by electrophoresis (mass/volume)Ordered By: William Vaibhav on 04-17-3443Afwmd 1 globulin Elph [Mass/Vol]0.3 g/dL0.0-0.4FGuernsey Memorial Hospitalerum or plasma alpha 2 globulin measurement by electrophoresis (mass/volume)Ordered By: William Vaibhav on 63-45-8847Yrvss 2 globulin Elph [Mass/Vol]0.7 g/dL0.4-1.0[facility]. Mary Hospitalerum or plasma beta globulin measurement by electrophoresis (mass/volume)Ordered By: William Vaibhav on 45-68-5245Grul globulin Elph [Mass/Vol]0.7 g/dL0.7-1.3FGuernsey Memorial Hospitalerum or plasma gamma globulin measurement by electrophoresis (mass/volume)Ordered By: William Vaibhav on 19-20-9431Qnhww globulin Elph [Mass/Vol]0.9 g/dL0.4-1.8The [facility] HospitalTroponin I.cardiac [Mass/volume] in Serum or Plasma by High sensitivity methodOrdered By: Hong Jewell on 62-86-7035Jgzlhkxc I.cardiac High sensitivity method [Mass/Vol]7 pg/mL0-15The [facility] HospitalUrine alpha 1 globulin/total protein by electrophoresisOrdered By: William Vaibhav on 12-07-2021 Alpha 1 globulin Elph (U) [Mass fraction]3.1 %.[facility] Urine alpha 2 globulin/total protein ratio by electrophoresisOrdered By: William Vaibhav on 73-97-6062Kqhca 2 globulin Elph (U) [Mass fraction]6.0 %.The [facility] HospitalUrine beta globulin measurement by electrophoresis (mass/volume)Ordered By: William Vaibhav on 64-86-4319Njao globulin Elph (U) [Mass/Vol]13.5 %.The [facility] HospitalUrine culture routineOrdered By: Hong Jewell on 58-86-9348Echsseso identified Cx Nom (U)Klebsiella oxytocaThe Christ HospitalUrine protein/creatinine ratioOrdered By: William Esposito on 55-65-5282Qnzhlex/Creatinine (U) [Ratio]359 mg/g{Cre}0-200 [facility] HospitalAlbumin [Mass/volume] in Serum or PlasmaOrdered By: William Esposito on 11-82-9740Ujrhhda [Mass/Vol]3.0 g/dL3.2-5.5FCleveland Clinic Marymount HospitalCULTURE URINEon 80-45-7099MZKKKEH URINEIsolate 1 Raoultella ornithinolytica >100,000 cfu/mL of [...] <=16 S F Trimethoprim/Sulfamethoxazole <=20 S FNormalThe [facility] HospitalComment on above:Performed By: #### HSTROPN #### [facility] [address] [place] [address] Dr. Debra BlakeGlucose Glucometer (BldC) [Mass/Vol]Ordered By: Hong Jewell on 80-89-4007Tsczikr [Mass/Vol]145 mg/dLThe Christ HospitalComment on above:Random Glucose Reference Range is dependent on time and content of last meal. Glucose of more than 200 mg/dL in a nonstressed, ambulatory subject supports the diagnosis of Diabetes Mellitus.No Panel InformationOrdered By: Hong Jewell on 35-61-3524Llvh-Nuclear Antibody Comment 2See comment.The Christ HospitalComment on above:For more information about Hep-2 [...] titers Nucleosomes, Histones Drug-induced SLE Speckled Sm, [employer], SCL-70, SLE,MCTD,PSS (diffuse form), SS-A/SS-B Sjogrens Nucleolar SCL-70, PM-1/SCL High titers Scleroderma, PM/DM Centromere Centromere PSS (limited form) w/Crest syndrome variable Nuclear Dot Sp100,t18-lfkkfl Primary Biliary Cirrhosis Nuclear GP210, Primary Biliary Cirrhosis Membrane chun A,B,C Performed at: [facility] [employer] [id number] [employer]: Sanford Mehta PhD, Phone: [phone] URINEon 32-34-3012Tmlathhgub, Obxtr748 mOsmol/kgNoThe University of Toledo Medical CenterComment on above:Result Comment: 24 hr : 300 - 900 Random: 50 - 1400 After 12hr fluid restriction: >850Performed By: #### HSTROPN #### [facility] [address] [address] [address] Debra Castellanos nuclear antibody titerOrdered By: Hong Jewell on 33-81-2841Taycgcb Ab (S) [Titer]Positive.[facility] Comment on above:Negative <1:80 Borderline 1:80 Positive >1:80Serum or plasma cyclic adenosine monophosphate measurement (moles/volume)Ordered By: Hong Jewell on 78-89-4389Nwnmtjaak monophosphate.cyclic [Moles/Vol]10 units0-19[facility] Comment on above:Negative <20 Weak positive 20 - 39 Moderate positive 40 - 59 Strong positive >59 Performed at: [facility] [id number] [employer]: Meli Bishop MD, Phone: [phone] or plasma ethanol measurement (mass/volume)Ordered By: Rehan Russ on 32-29-9077Iledlbm [Mass/Vol]mg/dLThe Christ HospitalEthanol [Mass/Vol]TNPThe Christ HospitalComment on above:Test not performedSerum speckled pattern antinuclear antibody (MATY) titerOrdered By: Hong Jewell on 12-06-2021 Speckled nuclear Ab pattern (S) [Titer]1:80.[facility] Comment on above:ICAP nomenclature: AC-2,4,5,29Amphetamine Screen Ql (U)Ordered By: Hong Jewell on 73-09-8009Tzgzoirahtid Ql (U)NegativeNegative [facility] HospitalAutomated erythrocytes count in urine sediment (number/area)Ordered By: Hong Jewell on 38-64-2575BIK Auto (Urine sed) [#/Area]1-2 [HPF]0-4FCleveland Clinic Marymount HospitalAutomated leukocytes count in urine sediment (number/area)Ordered By: Hong Jewell on 80-24-7772CED Auto (Urine sed) [#/Area]Innumerable [HPF]0-4FCleveland Clinic Marymount Hospital Barbiturates [Presence] in UrineOrdered By: Hong Jewell on 12-05-2021 Barbiturates Ql (U)NegativeNegNationwide Children's Hospital Benzodiazepines [Presence] in UrineOrdered By: Hong Jewell on 51-18-1618Enkspidomqrvyel Ql (U)PositiveNegNationwide Children's HospitalBilirubin Test strip Ql (U)Ordered By: Hong Jewell on 12-05-2021 Bilirubin Ql (U)NegativeNegNationwide Children's HospitalCT biopsy Ordered By: Hong Jewell on 10-38-8982Cckjelewije [Mass/Vol]175 mg/dL 180-380The [facility] HospitalCannabinoids [Presence] in Urine by Screen methodOrdered By: Hong Jewell on 74-91-4857Isvbwlicyghv Screen Ql (U)NegativeNegNationwide Children's HospitalComment on above:These are unconfirmed results and should not be used for legal purposes. Drug Cut-Off Concentration: AMPH 1000 ng/mL GAYLE 200 ng/mL ISAEL 200 ng/mL COCM 300 ng/mL OP 300 ng/mL PCP 25 ng/mL THC 20 ng/mLColor Auto (U)Ordered By: Hong Jewell on 86-38-3975Plvgj (U)YellowYellowThe Christ HospitalFerritin [Mass/volume] in Serum or PlasmaOrdered By: Hong Jewell on 82-42-6306Emdpjzlk [Mass/Vol]80.8 ng/gL87-376.8The [facility] HospitalIron [Mass/volume] in Serum or PlasmaOrdered By: Hong Jewell on 71-39-4390Jyif [Mass/Vol]22 ug/dL 40-150The [facility] HospitalIron binding capacity [Mass/volume] in Serum or PlasmaOrdered By: Hong Jewell on 06-86-1574Kdbc binding capacity [Mass/Vol]245 ug/jT266-268SjncnmqyiThe Christ HospitalKetones Auto test strip (U) [Mass/Vol]Ordered By: Hong Jewell on 26-83-3205Ontkvjf (U) [Mass/Vol]NegativeNegNationwide Children's HospitalLaboratory - Drug toxicologyOrdered By: Hong Jewell on 62-55-2294Mdowjhu Ql (U)Negative NegativeThe Christ HospitalLaboratory - UrinalysisOrdered By: Hong Jewell on 21-62-6892Mtkfwof casts LM Ql (Urine sed)0-8 [LPF]0-8 The [facility] HospitalLactate dehydrogenase measurement (enzymatic activity/volume)Ordered By: Hong Jewell on 62-78-1143PXV (Unsp spec) [Catalytic activity/Vol]135 U/Y53-141XlapwdpfwThe Christ HospitalNitrite Test strip Ql (U)Ordered By: Hong Jewell on 79-37-8062Wjcsbgv Ql (U) NegativeNegativeThe Christ HospitalNo Panel InformationOrdered By: Hong Jewell on 53-90-828862333929-Rhwjaki Vitamin D Total21.8 ng/iZ43-217 The [facility] HospitalComment on above:VITAMIN D STATUS 25(OH)VITAMIN D RANGE (ng/mL) Deficient <20 Insufficient 20 to <30 Sufficient 30 to 100 Reference: Maggie MF,Jose NC, Gilberto VARGAS, et al. Evaluation,treatment, and prevention of vitamin D deficiency; an Endocrine Society clinical practice guideline. JCEM. 2010; 96(7):1911-30.Vitamin C level<0.1 mg/dL0.4-2.0The [facility] HospitalComment on above:This test was developed and its performance characteristics determined by [facility]. It has not been cleared or approved by the Food and Drug Administration. Vitamin C deficiency is generally defined as plasma or serum concentrations less than 0.2 mg/dL and levels between 0.2 and 0.4 mg/dL are considered low. Performed at: [address] [id number] [place] Presser: Meli Bishop MD, Phone: [phone] Screen Ql (U) Ordered By: Hong Jewell on 80-12-5700Pyykoclrykqvf Ql (U)Negative NegativeThe Christ HospitalProtein Auto test strip (U) [Mass/Vol] Ordered By: Hong Jewell on 35-41-1603Imnzybw (U) [Mass/Vol]30 mg/dL NegativeMount St. Mary Hospitalerum or plasma thyroxine (T4) measurement (mass/volume)Ordered By: Hong Jewell on 94-67-7887Y3 [Mass/Vol]7.19 ug/dL5.39-11.82Mount [facility]. Mary Hospitalpecific gravity Auto test strip (U) [Rel density]Ordered By: Hong Jewell on 12-05-2021 Specific gravity (U) [Rel density]1.0131.001-1.030Mount St. Mary Hospitalquamous epithelial cells detection in urine sediment by light microscopy Ordered By: Hong Jewell on 18-42-4106Tpvcoexvtw cells.squamous LM Ql (Urine sed)5-9 [HPF]0-2FCleveland Clinic Marymount HospitalThyroxine (T4) free [Mass/volume] in Serum or PlasmaOrdered By: Hong Jewell on 12-05-2021 Free T4 [Mass/Vol]1.00 ng/dL0.61-1.12The Christ HospitalUrine bacteria detection by automated methodOrdered By: Hong Jewell on 76-80-2168Onbcnfuk Auto Ql (U)4+None SeenThe Christ HospitalUrine clarity by refractometry automatedOrdered By: Hong Jewell on 12-05-2021 Clarity Refractometry automated (U)CloudyClearFCleveland Clinic Marymount Hospital Urine cocaine detectionOrdered By: Hong Jewell on 83-68-9585Mhyhffe Ql (U)NegativeNegativeThe Christ HospitalUrine glucose measurement by automated test strip (mass/volume)Ordered By: Hong Jewell on 42-88-7108Rbdzaxq Auto test strip (U) [Mass/Vol]Normal mg/dLNoOur Lady of Mercy HospitalUrine hemoglobin detection by automated test stripOrdered By: Hong Jewell on 03-71-7843Edrzaawudd Auto test strip Ql (U)Negative [facility] HospitalUrine leukocyte esterase detection by automated test stripOrdered By: Hong Jewell on 46-42-7998Biapimfge esterase Auto test strip Ql (U)4+NegativeThe Christ Hospital Urobilinogen Auto test strip (U) [Mass/Vol]Ordered By: Hong Jewell on 90-77-9688Vdeskpjrkacv (U) [Mass/Vol]Normal mg/dLNoOur Lady of Mercy HospitalpH Auto test strip (U)Ordered By: Hong Jewell on 41-01-8522uI (U)5.5 [pH]5.0-9.0The Christ HospitalActivated partial thromboplastin time (aPTT) in platelet poor plasma by coagulation a Ordered By: Hong Jewell on 75-94-0797uPCL Coag (PPP) [Time]29.9 s 25.1-36.5FCleveland Clinic Marymount HospitalCBC AUTO DIFFon 95-77-9278JRVA #0.0 103/ulNormal0.0-0.1The Ghassan HospitalComment on above:Performed By: #### HSTROPN, CMP #### [facility] [address] [place] [address] Dr. Debra BlakeBasophils/100 WBC (Bld)0.4 %Normal0.2-2.0[facility] Comment on above:Performed By: #### HSTROPN, CMP #### [facility] [address] [place] [address] Dr. Debra Villasenor #0.1 103/ulNormal0.0-0.7The [facility] HospitalComment on above: Performed By: #### HSTROPN, CMP #### [facility] [address] [place] [address] Dr. Debra Gallegoosinophils/100 WBC (Bld)1.3 %Normal0.9-7.0The [facility] Comment on above:Performed By: #### HSTROPN, CMP #### [facility] [address] [place] [address] Dr. Debra Gallegorythrocyte distribution width (RBC) [Ratio]14.6 %Smkvjw40.0-15.0 The [facility] HospitalComment on above:Performed By: #### HSTROPN, CMP #### [facility] [address] [place] [address] Dr. Debra BlakeHematocrit (Bld) [Volume fraction]24.6 %Critically low36.0-48.0 The [facility] HospitalComment on above:Performed By: #### HSTROPN, CMP #### [facility] [address] [place] [address] Dr. Debra BlakeHemoglobin (Bld) [Mass/Vol]8.6 g/dLCritically low12.0-16.0The [facility] HospitalComment on above:Performed By: #### HSTROPN, CMP #### [facility] [address] [place] [address] Dr. Debra Bay #0.04 10e3/ulCritically high0.00-0.03The [facility] Comment on above:Performed By: #### HSTROPN, CMP #### [facility] [address] [place] [address] Dr. Debra BlakeIG %0.6 %Critically high0.0-0.5The [facility] HospitalComment on above:Performed By: #### HSTROPN, CMP #### [facility] [address] [place] [address] Dr. Debra Early #1.3 103/ulNormal1.2-3.8The [facility] HospitalComment on above:Performed By: #### HSTROPN, CMP #### [facility] [address] [place] [address] Dr. Debra Childshocytes/100 WBC (Bld)19.7 %Critically low20.5-60.0The [facility] HospitalComment on above:Performed By: #### HSTROPN, CMP #### [facility] [address] [place] [address] Dr. Debra ObrienUAL DIFF REQNONormalThe [facility] HospitalComment on above: Performed By: #### HSTROPN, CMP #### [facility] [address] [place] [address] Dr. Debra Elizondo (RBC) [Entitic mass]34.3 pgCritically high26.7-34.0The [facility] HospitalComment on above:Performed By: #### HSTROPN, CMP #### [facility] [address] [place] [address] Dr. Debra Recio (RBC) [Mass/Vol]35.0 g/iCWmuvgj42.9-35.2The [facility] HospitalComment on above:Performed By: #### HSTROPN, CMP #### [facility] [address] [place] [address] Dr. Debra Recio (RBC) [Entitic vol]98.0 nFGngfva45.0-99.0The [facility] HospitalComment on above:Performed By: #### HSTROPN, CMP #### [facility] [address] [place] [address] Dr. Debra Hallman #0.9 103/ulCritically high0.3-0.8The [facility] Comment on above:Performed By: #### HSTROPZelalem, CMP #### [facility] [address] [address] [address] Debra Spauldingocytes/100 WBC (Bld)12.7 %Critically high1.7-12.0The [facility] HospitalComment on above:Performed By: #### HSTROPN, CMP #### [facility] [address] [place] [address] Dr. Debra Valdovinos #4.4 103/ulNormal1.4-6.5The [facility] HospitalComment on above:Performed By: #### HSTROPZelalem, CMP #### [facility] [address] [place] [address] Dr. Debra Alyutrophils/100 WBC (Bld)65.3 %Wzksmo93.0-75.0The [facility] HospitalComment on above:Performed By: #### HSTROPN, CMP #### [facility] [address] [place] [address] Dr. Debra Sunglet mean volume (Bld) [Entitic vol]9.0 fLCritically low 9.5-13.5The [facility] HospitalComment on above:Performed By: #### HSTROPN, CMP #### [facility] [address] [address] [address] Debra BlakePLT142 103/ulCritically rot510-891Vjq [facility] HospitalComment on above:Performed By: #### HSTROPN, CMP #### [facility] [address] [place] [address] Dr. Debra BlakeRBC2.51 106/ulCritically low4.20-5.40The [facility] HospitalComment on above:Performed By: #### HSTROPN, CMP #### [facility] [address] [place] [address] Dr. Debra BlakeWBC6.8 103/ulNormal4.0-11.0The [facility] HospitalComment on above: Performed By: #### HSTROPN, CMP #### [facility] [address] [place] [address] Dr. Debra Hutchins #0.0 103/ulNormal0.0-0.1The [facility] HospitalComment on above:Performed By: #### CBC #### [facility] [address] [place] [address] Dr. Debra BlakeBasophils/100 WBC (Bld)0.5 %Normal0.2-2.0[facility] Comment on above:Performed By: #### CBC #### [facility] [address] [place] [address] Dr. Debra Villasenor #0.1 103/ulNormal0.0-0.7The [facility] HospitalComment on above: Performed By: #### CBC #### [facility] [address] [place] [address] Dr. Debra Gallegoosinophils/100 WBC (Bld)0.9 %Normal0.9-7.0The [facility] Comment on above:Performed By: #### CBC #### [facility] [address] [place] [address] Dr. Debra Gallegorythrocyte distribution width (RBC) [Ratio]14.6 %Tbrprb45.0-15.0 [facility] HospitalComment on above:Performed By: #### CBC #### [facility] [address] [place] [address] Dr. Debra BlakeHematocrit (Bld) [Volume fraction]26.2 %Critically low36.0-48.0 The [facility] HospitalComment on above:Performed By: #### CBC #### [facility] [address] [place] [address] Dr. Debra BlakeHemoglobin (Bld) [Mass/Vol]9.2 g/dLCritically low12.0-16.0[facility] HospitalComment on above:Performed By: #### CBC #### [facility] [address] [place] [address] Dr. Debra Bay #0.06 10e3/ulCritically high0.00-0.03The [facility] Comment on above:Performed By: #### CBC #### [facility] [address] [place] [address] Dr. Debra Bay %0.7 %Critically high0.0-0.5The [facility] HospitalComment on above:Performed By: #### CBC #### [facility] [address] [place] [address] Dr. Debra Early #1.3 103/ulNormal1.2-3.8The [facility] HospitalComment on above:Performed By: #### CBC #### [facility] [address] [place] [address] Dr. Debra Childshocytes/100 WBC (Bld)15.7 %Critically low20.5-60.0The [facility] HospitalComment on above:Performed By: #### CBC #### [facility] [address] [place] [address] Dr. Debra Grant DIFF REQNONormalThe [facility] HospitalComment on above: Performed By: #### CBC #### [facility] [address] [place] [address] Dr. eDbra Elizondo (RBC) [Entitic mass]34.2 pgCritically high26.7-34.0The [facility] HospitalComment on above:Performed By: #### CBC #### [facility] [address] [place] [address] Dr. Debra Recio (RBC) [Mass/Vol]35.1 g/hONhrkhy98.9-35.2The [facility] HospitalComment on above:Performed By: #### CBC #### [facility] [address] [place] [address] Dr. Debra Connell (RBC) [Entitic vol]97.4 qLDycagt10.0-99.0The [facility] HospitalComment on above:Performed By: #### CBC #### [facility] [address] [place] [address] Dr. Debra Hallman #1.1 103/ulCritically high0.3-0.8The [facility] Comment on above:Performed By: #### CBC #### [facility] [address] [place] [address] Dr. Debra Spauldingocytes/100 WBC (Bld)13.3 %Critically high1.7-12.0The [facility] HospitalComment on above:Performed By: #### CBC #### [facility] [address] [place] [address] Dr. Debra Valdovinos #5.6 103/ulNormal1.4-6.5The [facility] HospitalComment on above:Performed By: #### CBC #### [facility] [address] [place] [address] Dr. Debra Alyutrophils/100 WBC (Bld)68.9 %Rzyxvp85.0-75.0The [facility] HospitalComment on above:Performed By: #### CBC #### [facility] [address] [place] [address] Dr. Debra Goff mean volume (Bld) [Entitic vol]9.2 fLCritically low 9.5-13.5The [facility] HospitalComment on above:Performed By: #### CBC #### [facility] [address] [place] [address] Dr. Debra BlakePLT179 103/ebDmgugn561-828Yrk [facility] HospitalComment on above: Performed By: #### CBC #### [facility] [address] [place] [address] Dr. Debra BlakeRBC2.69 106/ulCritically low4.20-5.40The [facility] HospitalComment on above:Performed By: #### CBC #### [facility] [address] [place] [address] Dr. Debra BlakeWBC8.1 103/ulNormal4.0-11.0The [facility] HospitalComment on above: Performed By: #### CBC #### [facility] [address] [place] [address] Dr. Debra BlakeCreatine kinase [Enzymatic activity/volume] in Serum or Plasma Ordered By: Hong Jewell on 45-57-5124OF [Catalytic activity/Vol]140 U/L 22The Christ HospitalDirect bilirubin measurementOrdered By: Hong Jewell on 66-39-0149Jtyhmhahz.direct [Mass/Vol]0.2 mg/dL0.0-0.4 The [facility] HospitalFolate [Mass/volume] in Serum or PlasmaOrdered By: Hong Jewell on 18-27-1129Cojozz [Mass/Vol]5.1 ng/mL>5.9The Christ HospitalComment on above:Folate reference range: >5.9 ng/ml The WHO technical consultation on folate and vitamin b12 deficiencies has determined that folate concentrations less than 4 ng/ml are considered deficient.Globulin Calc (S) [Mass/Vol]Ordered By: Hong Jewell on 61-52-1912Uglimfgi (S) [Mass/Vol]3.2 g/dLThe Christ HospitalGlucose mean value [Mass/volume] in Blood Estimated from glycated hemoglobinOrdered By: Hong Jewell on 66-59-8146Dsdnytf glucose Estimated from glycated hemoglobin (Bld) [Mass/Vol]97 mg/dLThe Christ HospitalHemoglobin A1c percentageOrdered By: Hong Jewell on 98-11-6047ZeR6a (Bld) [Mass fraction]5.0 %4.3-5.6FCleveland Clinic Marymount HospitalComment on above:Increased risk for diabetes: 5.7 - 6.4 diabetes: >6.4 glycemic control for adults with diabetes: <7.0Laboratory - Chemistry and Chemistry - challengeOrdered By: Hong Jewell on 49-04-4930Lrhxmmowm (Vitamin B12) [Mass/Vol]520 pg/xM628-918JplejnmrwThe [facility] Hospital Laboratory - CoagulationOrdered By: Hong Jewell on 91-51-2879XW Coag (PPP) [Time]12.2 s9.0-12.9The Christ HospitalMAGNESIUMon 76-47-0906Lqrspmogl [Mass/Vol]1.1 mg/dLCritically low1.8-2.4The [facility] HospitalComment on above:Performed By: #### HSTROPN #### [facility] [address] [address] [address] Debra BlakeMagnesium [Mass/Vol]0.6 mg/dLCritically low1.8-2.4The [facility] HospitalComment on above:Performed By: #### HSTROPN, CMP #### [facility] [address] [place] [address] Dr. Debra BlakePROF 14(COMP METB)on 38-73-5964Mikqjcn [Mass/Vol]2.7 g/dL Critically low3.4-5.0The [facility] HospitalComment on above:Performed By: #### HSTROPN #### [facility] [address] [place] [address] Dr. Debra BlakeAlbumin/Globulin [Mass ratio]0.8 {ratio}NormalThe [facility] HospitalComment on above:Performed By: #### HSTROPN #### [facility] [address] [place] [address] Dr. Debra Garcia [Catalytic activity/Vol]57 U/CTiedba42-047Guj [facility] HospitalComment on above:Performed By: #### HSTROPN #### [facility] [address] [place] [address] Dr. Debra Piña [Catalytic activity/Vol]7 U/LCritically mgz12-51Mmj [facility] HospitalComment on above:Performed By: #### HSTROPN #### [facility] [address] [place] [address] Dr. Debra Espinosa gap [Moles/Vol]17.3 mmol/LNormalThe [facility] Comment on above:Performed By: #### HSTROPN #### [facility] [address] [place] [address] Dr. Debra Faria [Catalytic activity/Vol]14 U/LCritically lxg63-87Xdk [facility] HospitalComment on above:Performed By: #### HSTROPN #### [facility] [address] [place] [address] Dr. Debra BlakeBilirubin [Mass/Vol]0.6 mg/dLNormal0.2-1.0The [facility] Comment on above:Performed By: #### HSTROPN #### [facility] [address] [place] [address] Dr. Debra BlakeCalcium [Mass/Vol]5.8 mg/dLCritically low8.5-10.1The [facility] HospitalComment on above:Result Comment: Test Repeated. Critical Value Verified Performed By: #### HSTROPN #### [facility] [address] [place] [address] Dr. Debra BlakeChloride [Moles/Vol]94 mmol/LCritically nkb00-616Fxj [facility] HospitalComment on above:Performed By: #### HSTROPN #### [facility] [address] [place] [address] Dr. Debra BlakeCO2 [Moles/Vol]17.7 mmol/LCritically low21.0-32.0The [facility] HospitalComment on above:Performed By: #### HSTROPN #### [facility] [address] [place] [address] Dr. Debra BlakeCreatinine [Mass/Vol]2.48 mg/dLCritically high0.55-1.02The [facility] HospitalComment on above:Performed By: #### HSTROPN #### [facility] [address] [place] [address] Dr. Richardson ChangEGFR-AF ANLGZGRS41 mL/min/1.78c3Rzskkcmmar low>=60The [facility] HospitalComment on above:Performed By: #### HSTROPN #### [facility] [address] [place] [address] Dr. Debra GallegoGFR-NON AF WJOOAAMQ05 mL/min/1.70w0Uxtjqjqrfs low>=60The [facility] HospitalComment on above:Performed By: #### HSTROPN #### [facility] [address] [address] [address] Debra BlakeGlobulin (S) [Mass/Vol]3.2 g/dLNoThe University of Toledo Medical CenterComment on above:Performed By: #### HSTROPN #### [facility] [address] [place] [address] Dr. Debra BlakeGlucose [Mass/Vol]108 mg/dLCritically uqsa99-728Mtv [facility] HospitalComment on above:Performed By: #### HSTROPN #### [facility] [address] [place] [address] Dr. Debra BlakePotassium [Moles/Vol]3.0 mmol/LCritically low3.5-5.1The [facility] HospitalComment on above:Performed By: #### HSTROPN #### [facility] [address] [place] [address] Dr. Debra BlakeProtein [Mass/Vol]5.9 g/dLCritically low6.4-8.2The [facility] HospitalComment on above:Performed By: #### HSTROPN #### [facility] [address] [place] [address] Dr. Debra BlakeSodium [Moles/Vol]126 mmol/LCritically vpo785-532Dap [facility] HospitalComselect specialty hospital on above:Performed By: #### HSTROPN #### [facility] [address] [place] [address] Dr. Debra BlakeUrea nitrogen [Mass/Vol]29.0 mg/dLCritically high7.0-18.0The [facility] HospitalComment on above:Performed By: #### HSTROPN #### [facility] [address] [place] [address] Dr. Debra BlakeUrea nitrogen/Creatinine [Mass ratio]11.7 mg/mgNoThe University of Toledo Medical CenterComselect specialty hospital on above:Performed By: #### HSTROPN #### [facility] [address] [place] [address] Dr. Debra BlakeAlbumin [Mass/Vol]3.1 g/dLCritically low3.4-5.0The [facility] HospitalComment on above:Performed By: #### HSTROPN, CMP #### [facility] [address] [place] [address] Dr. Debra BlakeAlbumin/Globulin [Mass ratio]0.8 {ratio}NormalThe [facility] HospitalComment on above:Performed By: #### HSTROPN, CMP #### [facility] [address] [place] [address] Dr. Debra ChungP [Catalytic activity/Vol]65 U/MCqxlve61-646Btg [facility] HospitalComment on above:Performed By: #### HSTROPN, CMP #### [facility] [address] [place] [address] Dr. Debra Piña [Catalytic activity/Vol]9 U/LCritically onk83-10Zcq [facility] HospitalComment on above:Performed By: #### HSTROPN, CMP #### [facility] [address] [place] [address] Dr. Debra Espinosa gap [Moles/Vol]17.3 mmol/LNormalThe [facility] Comment on above:Performed By: #### HSTROPN, CMP #### [facility] [address] [place] [address] Dr. Debra BlakeAST [Catalytic activity/Vol]17 U/OWimdfe07-24Oob Veterans Health Administrationment on above:Performed By: #### HSTROPN, CMP #### [facility] [address] [place] [address] Dr. Debra BlakeBilirubin [Mass/Vol]0.8 mg/dLNormal0.2-1.0The [facility] Comment on above:Performed By: #### HSTROPN, CMP #### [facility] [address] [place] [address] Dr. Debra BlakeCalcium [Mass/Vol]5.8 mg/dLCritically low8.5-10.1[facility] HospitalComment on above:Result Comment: Test Repeated. Critical Value Verified Performed By: #### HSTROPN, CMP #### [facility] [address] [address] [address] Debra BlakeChloride [Moles/Vol]91 mmol/LCritically yzw27-761Mtk [facility] HospitalComment on above:Performed By: #### HSTROPN, CMP #### [facility] [address] [place] [address] Dr. Debra BlakeCO2 [Moles/Vol]19.6 mmol/LCritically low21.0-32.0The [facility] HospitalComment on above:Performed By: #### HSTROPN, CMP #### [facility] [address] [address] [address] Debra BlakeCreatinine [Mass/Vol]2.66 mg/dLCritically high0.55-1.02The [facility] HospitalComment on above:Performed By: #### HSTROPN, CMP #### [facility] [address] [place] [address] Dr. Richardson ChangEGFR-AF MFYRKPMC40 mL/min/1.26j2Xintjwvzke low>=60The [facility] HospitalComment on above:Performed By: #### HSTROPN, CMP #### [facility] [address] [address] [address] Debra GallegoGFR-NON AF KZFAOPKA44 mL/min/1.54q9Gwsxneyrzk low>=60The Veterans Health Administrationment on above:Performed By: #### HSTROPN, CMP #### [facility] [address] [address] [address] Debra BlakeGlobulin (S) [Mass/Vol]3.7 g/dLNormalThe [facility] HospitalComment on above:Performed By: #### HSTROPN, CMP #### [facility] [address] [address] [address] Debra BlakeGlucose [Mass/Vol]106 mg/lCVqlmut28-586Fax [facility] Comment on above:Performed By: #### HSTROPN, CMP #### [facility] [address] [address] [address] Debra BlakePotassium [Moles/Vol]2.8 mmol/LCritically low3.5-5.1The [facility] HospitalComment on above:Result Comment: Test Repeated. Critical Value Verified Performed By: #### HSTROPN, CMP #### [facility] [address] [address] [address] Debra BlakeProtein [Mass/Vol]6.8 g/dLNormal6.4-8.2The [facility] Comment on above:Performed By: #### HSTROPN, CMP #### [facility] [address] [place] [address] Dr. Debra BlakeSodium [Moles/Vol]123 mmol/LCritically alk196-865Hqi [facility] HospitalComment on above:Result Comment: Test Repeated. Critical Value Verified Performed By: #### HSTROPN, CMP #### [facility] [address] [place] [address] Dr. Debra BlakeUrea nitrogen [Mass/Vol]29.0 mg/dLCritically high7.0-18.0The [facility] HospitalComment on above:Performed By: #### HSTROPN, CMP #### [facility] [address] [place] [address] Dr. Debra Hurst nitrogen/Creatinine [Mass ratio]10.9 mg/mgNormalThe [facility] HospitalComment on above:Performed By: #### HSTROPN, CMP #### [facility] [address] [place] [address] Dr. Debra BlakePhosphate [Mass/volume] in Serum or PlasmaOrdered By: Hong Jewell on 71-01-3821Gyaqgfwaw [Mass/Vol]3.6 mg/dL2.5-4.6FCleveland Clinic Marymount HospitalPlatelet poor plasma international normalized ratio (INR) by coagulation assay (relatOrdered By: Hong Jewlel on 01-31-9164BJN Coag (PPP) [Relative time]1.1 {INR}The Christ HospitalComment on above: INR Therapeutic Range A) [...] Serum or PlasmaOrdered By: Hong Jewell on 39-79-3278Mdtoplv [Mass/Vol] 6.2 g/dL6.1-7.9[facility] Hospitalerum ionized calcium measurement using ion specific electrode (mass/volume)Ordered By: Hong eJwell on 65-67-1890Iekliem.ionized ISE [Mass/Vol]3.5 mg/dL4.5-5.6FCleveland Clinic Marymount HospitalComment on above:Performed at: [facility] [id number] [place] Presser: Sanford Mehta PhD, Phone: [phone] or plasma alanine aminotransferase measurement without P-5'-P (enzymatic activiOrdered By: Hong Jewell on 84-56-1567PSS No additional P-5'-P [Catalytic activity/Vol]8 U/W76-22EnytmgdthMount St. Mary Hospitalerum or plasma albumin/globulin mass ratioOrdered By: Hong Jewell on 12-04-2021 Albumin/Globulin [Mass ratio]0.9 {ratio}[facility] Hospitaler[facility] or plasma alkaline phosphatase measurement (enzymatic activity/volume)Ordered By: Hong Jewell on 33-94-6351KTE [Catalytic activity/Vol]51 U/L32-[address] [facility] Hospitalerum or plasma aspartate aminotransferase measurement (enzymatic activity/volume)Ordered By: Hong Jewell on 13-38-4597TZB [Catalytic activity/Vol]15 U/N50-80CdxiulgrpMount St. Mary Hospitalerum or plasma creatine kinase MB (CKMB)/total creatine kinase (CK) ratio by calculaOrdered By: Hong Jewell on 26-45-1589RJ.MB Calc [Catalytic fraction]1.4 %0.00-2.50[facility] Hospitalerum or plasma creatine kinase MB measurement (mass/volume)Ordered By: Hong Jewell on 66-08-0548BD.MB [Mass/Vol]2.0 ng/mL0.6-6.3FGuernsey Memorial Hospitalerum or plasma non-glucuronidated bilirubin measurement (mass/volume)Ordered By: Hong Jewell on 60-73-9685Kfbkkchsz.indirect [Mass/Vol]0.6 mg/dL [facility] Hospitaler[facility] or plasma prealbumin measurement (mass/volume)Ordered By: Hong Jewell on 77-71-6614Gevzsbgmhj [Mass/Vol] 15.8 mg/dL18.0-38.0[facility] Hospitalerum or plasma total bilirubin measurement (mass/volume)Ordered By: Hong Jewell on 43-37-6796Xoqthhmka [Mass/Vol]0.8 mg/dL0.3-1.2FC[facility] Hospital TROPONIN, HIGH SENSITIVITYon 76-71-4387IUBHEV91.0 pg/mLCritically high4.0-51.3 The [facility] HospitalComment on above:Result Comment: CUT-OFF POINTS HAVE BEEN ESTABLISHED BASED ON THE FOURTH UNIVERSAL DEFINITIONS OF MYOCARDIAL INFARCTION. THE UPPER REFERENCE LIMIT (URL) OF TROPONIN, DEFINED THE 99TH PERCENTILE OF cTnI DISTRIBUTION IN A REFERENCE POPULATION, HAS BEEN CONFIRMED THE DECISION THRESHOLD FOR MS DIAGNOSIS.Performed By: #### HSTROPN, CMP #### [facility] [address] [place] [address] Dr. Debra RappTROP107.8 pg/mLCritically high4.0-51.3The [facility] Comment on above:Result Comment: CUT-OFF POINTS HAVE BEEN ESTABLISHED BASED ON THE FOURTH UNIVERSAL DEFINITIONS OF MYOCARDIAL INFARCTION. THE UPPER REFERENCE LIMIT (URL) OF TROPONIN, DEFINED THE 99TH PERCENTILE OF cTnI DISTRIBUTION IN A REFERENCE POPULATION, HAS BEEN CONFIRMED THE DECISION THRESHOLD FOR MS DIAGNOSIS.Performed By: #### HSTROPN #### [facility] [address] [place] [address] Dr. Debra Goldstein 46-05-0893VOH9.321 uIU/mLCritically low0.358-3.740The [facility] HospitalComment on above:Performed By: #### HSTROPN, CMP #### [facility] [address] [address] [address] Debra Haji DL <= 0.005 mIU/L QnOrdered By: Hong Jewell on 01-85-1057NZN Qn0.39 m[IU]/L0.45-5.33The [facility] HospitalUrine lactic acid measurementOrdered By: Hong Jewell on 32-33-8525Fnnfwmj (U) [Moles/Vol]1.3 mmol/L0.5-2.2FCleveland Clinic Marymount HospitalCBC AUTO DIFFon 82-81-6431IHFN #0.1 103/ulNormal0.0-0.1The [facility] HospitalComment on above: Performed By: #### HSTROPN #### [facility] [address] [address] [address] Debra BlakeBasophils/100 WBC (Bld)0.6 %Normal0.2-2.0[facility] Comment on above:Performed By: #### HSTROPN #### [facility] [address] [address] [address] Debra Villasenor #0.1 103/ulNormal0.0-0.7The [facility] HospitalComment on above: Performed By: #### HSTROPN #### [facility] [address] [address] [address] Debra Gallegoosinophils/100 WBC (Bld)1.5 %Normal0.9-7.0[facility] Comment on above:Performed By: #### HSTROPN #### [facility] [address] [address] [address] Debra Gallegorythrocyte distribution width (RBC) [Ratio]14.6 %Hegjqo90.0-15.0 [facility] HospitalComment on above:Performed By: #### HSTROPN #### [facility] [address] [address] [address] Debra BlakeHematocrit (Bld) [Volume fraction]27.4 %Critically low36.0-48.0 The [facility] HospitalComment on above:Performed By: #### HSTROPN #### [facility] [address] [place] [address] Dr. Debra BlakeHemoglobin (Bld) [Mass/Vol]9.7 g/dLCritically low12.0-16.0The [facility] HospitalComment on above:Performed By: #### HSTROPN #### [facility] [address] [place] [address] Dr. Debra Bay #0.08 10e3/ulCritically high0.00-0.03The [facility] Comment on above:Performed By: #### HSTROPN #### [facility] [address] [place] [address] Dr. Debra Bay %0.9 %Critically high0.0-0.5The [facility] HospitalComment on above:Performed By: #### HSTROPN #### [facility] [address] [place] [address] Dr. Debra Early #1.9 103/ulNormal1.2-3.8The [facility] HospitalComment on above:Performed By: #### HSTROPN #### [facility] [address] [place] [address] Dr. Debra Childshocytes/100 WBC (Bld)20.9 %Xtbxhe37.5-60.0The [facility] HospitalComment on above:Performed By: #### HSTROPN #### [facility] [address] [place] [address] Dr. Debra ObrienUAL DIFF REQNONormalThe [facility] HospitalComment on above: Performed By: #### HSTROPN #### [facility] [address] [place] [address] Dr. Debra Elizondo (RBC) [Entitic mass]34.5 pgCritically high26.7-34.0The [facility] HospitalComment on above:Performed By: #### HSTROPN #### [facility] [address] [place] [address] Dr. Debra RecioHC (RBC) [Mass/Vol]35.4 g/dLCritically high29.9-35.2The [facility] HospitalComment on above:Performed By: #### HSTROPN #### [facility] [address] [place] [address] Dr. Debra RecioV (RBC) [Entitic vol]97.5 gUDrxpjj73.0-99.0The [facility] HospitalComment on above:Performed By: #### HSTROPN #### [facility] [address] [place] [address] Dr. Debra Hallman #1.3 103/ulCritically high0.3-0.8The [facility] Comment on above:Performed By: #### HSTROPN #### [facility] [address] [place] [address] Dr. Debra Spauldingocytes/100 WBC (Bld)14.3 %Critically high1.7-12.0The [facility] HospitalComment on above:Performed By: #### HSTROPN #### [facility] [address] [place] [address] Dr. Debra Valdovinos #5.5 103/ulNormal1.4-6.5The [facility] HospitalComment on above:Performed By: #### HSTROPN #### [facility] [address] [place] [address] Dr. Debra Alyutrophils/100 WBC (Bld)61.8 %Eszfll52.0-75.0The [facility] HospitalComment on above:Performed By: #### HSTROPN #### [facility] [address] [place] [address] Dr. Debra Goff mean volume (Bld) [Entitic vol]9.2 fLCritically low 9.5-13.5The [facility] HospitalComment on above:Performed By: #### HSTROPN #### [facility] [address] [place] [address] Dr. Debra OchoaT187 103/rnBlwjgk737-107Lnb [facility] HospitalComment on above: Performed By: #### HSTROPN #### [facility] [address] [place] [address] Dr. Debra BlakeRBC2.81 106/ulCritically low4.20-5.40The [facility] HospitalComment on above:Performed By: #### HSTROPN #### [facility] [address] [place] [address] Dr. Debra BlakeWBC8.9 103/ulNormal4.0-11.0The [facility] HospitalComment on above: Performed By: #### HSTROPN #### [facility] [address] [place] [address] Dr. Debra BlakeCovid-19 PCR (CVDTB)on 21-93-6983VABR-CoV-2 (COVID-19) RNA YVONNE+probe Ql (Unsp spec)Not detectedNormalNOT DETECTEDThe [facility] Comment on above:Result Comment: When diagnostic [...] for this test is supported by the [place] of Health and Human Service's declaration that [...] longer be used).Performed By: #### CVDTBH #### [facility] [address] [place] [address] Dr. Richardson ChangEChristos URINE PROFILEon 75-67-3576Khkavxqjw Ql (U)NegativeNormal NEGATIVEThe [facility] HospitalComment on above:Performed By: #### STEPHANE, ERUR #### [facility] [address] [address] [address] Debra Centenoarity (U)CLEARNormalCLEARGeorgetown Behavioral HospitalComment on above: Performed By: #### STEPHANE, ERUR #### [facility] [address] [address] [address] Debra Pedroza (U)LT. YELLOWNormalYELLOWGeorgetown Behavioral HospitalComment on above:Performed By: #### STEPHANE, ERUR #### [facility] [address] [address] [address] Debra Francisco micrscopic examination will be performed if indicated. NormalGeorgetown Behavioral HospitalComselect specialty hospital on above:Performed By: #### STEPHANE, ERUR #### [facility] [address] [address] [address] Debra BlakeGlucose Ql (U)NegativeNormalNEGATIVEGeorgetown Behavioral HospitalComment on above:Performed By: #### STEPHANE, ERUR #### [facility] [address] [address] [address] Debra BlakeHemoglobin Ql (U)TRACE-LYSEDAbnormalNEGWayne Hospital on above:Performed By: #### STEPHANE, ERUR #### [facility] [address] [address] [address] Debra BlakeKetones Ql (U)NegativeNormalNEGATIVEGeorgetown Behavioral HospitalComment on above:Performed By: #### STEPHANE, ERUR #### [facility] [address] [address] [address] Debra BlakeLEUKOCYTESMODERATEAbnormalNEGATIVEGeorgetown Behavioral HospitalComselect specialty hospital on above:Performed By: #### STEPHANE, ERUR #### [facility] [address] [address] [address] Debra BlakeNitrite Ql (U)NegativeNormalNEGATIVEGeorgetown Behavioral HospitalComment on above:Performed By: #### STEPHANE, ERUR #### [facility] [address] [place] [address] Dr. Debra Laureano (U)6.0 [pH]Normal5-9The [facility] HospitalComment on above: Performed By: #### STEPHANE ERUR #### [facility] [address] [place] [address] Dr. Debra BlakeSPEC GRAVITY1.065Pzetee8.005-<=1.025The [facility] HospitalComment on above:Performed By: #### STEPHANE, ERUR #### [facility] [address] [place] [address] Dr. Debra Diamond PROTEINTRACENormalNEGATIVE/ TRACEThe [facility] HospitalComment on above:Performed By: #### STEPHANE, ERUR #### [facility] [address] [place] [address] Dr. Debra Frey MICRO INDINDICATEDNormalThe [facility] HospitalComment on above: Performed By: #### STEPHANE, ERUR #### [facility] [address] [place] [address] Dr. Debra BlakeUrobilinogen Qn (U)0.2 {Pascale'U}/dLNormal0.2 - 1.0The [facility] HospitalComment on above:Performed By: #### STEPHANE, ERUR #### [facility] [address] [place] [address] Dr. Debra BlakeMAGNESIUMon 74-01-6665Vcdbdxgib [Mass/Vol]0.4 mg/dLCritically low 1.8-2.4The [facility] HospitalComment on above:Performed By: #### MG #### [facility] [address] [place] [address] Dr. Debra BlakePROF 14(COMP METB)on 90-43-3399Fpbewmj [Mass/Vol]3.2 g/dL Critically low3.4-5.0The [facility] HospitalComment on above:Performed By: #### HSTROPN, CMP #### [facility] [address] [place] [address] Dr. Debra BlakeAlbumin/Globulin [Mass ratio]0.8 {ratio}NormalThe [facility] HospitalComment on above:Performed By: #### HSTROPN, CMP #### [facility] [address] [place] [address] Dr. Debra ChungP [Catalytic activity/Vol]64 U/HGcvjex14-230Ruy [facility] HospitalComment on above:Performed By: #### HSTROPN, CMP #### [facility] [address] [place] [address] Dr. Debra ChungT [Catalytic activity/Vol]11 U/LCritically ggd00-14Fwx [facility] HospitalComment on above:Performed By: #### HSTROPN, CMP #### [facility] [address] [place] [address] Dr. Debra Harleyon gap [Moles/Vol]19.5 mmol/LNormalThe [facility] Comment on above:Performed By: #### HSTROPN, CMP #### [facility] [address] [place] [address] Dr. Debra BlakeAST [Catalytic activity/Vol]19 U/JJkgghf71-78Dof [facility] HospitalComment on above:Performed By: #### HSTROPN, CMP #### [facility] [address] [place] [address] Dr. Debra BlakeBilirubin [Mass/Vol]0.5 mg/dLNormal0.2-1.0The [facility] Comment on above:Performed By: #### HSTROPN, CMP #### [facility] [address] [place] [address] Dr. Debra BlakeCalcium [Mass/Vol]5.8 mg/dLCritically low8.5-10.1The [facility] HospitalComment on above:Performed By: #### HSTROPN, CMP #### [facility] [address] [place] [address] Dr. Debra BlakeChloride [Moles/Vol]88 mmol/LCritically oym14-787Bxa [facility] HospitalComment on above:Performed By: #### HSTROPN, CMP #### [facility] [address] [address] [address] Debra BlakeCO2 [Moles/Vol]19.7 mmol/LCritically low21.0-32.0The [facility] HospitalComment on above:Performed By: #### HSTROPN, CMP #### [facility] [address] [address] [address] Debra BlakeCreatinine [Mass/Vol]2.77 mg/dLCritically high0.55-1.02The [facility] HospitalComment on above:Performed By: #### HSTROPN, CMP #### [facility] [address] [place] [address] Dr. Debra GallegoGFR-AF XKRRBKIT20 mL/min/1.74v3Gjcphrxmsb low>=60The [facility] HospitalComment on above:Performed By: #### HSTROPN, CMP #### [facility] [address] [place] [address] Dr. Debra GallegoGFR-NON AF BHBTCHIU80 mL/min/1.20t4Ttpmlrypuq low>=60The [facility] HospitalComment on above:Performed By: #### HSTROPN, CMP #### [facility] [address] [place] [address] Dr. Debra BlakeGlobulin (S) [Mass/Vol]3.9 g/dLNormalThe [facility] HospitalComment on above:Performed By: #### HSTROPN, CMP #### [facility] [address] [place] [address] Dr. Debra BlakeGlucose [Mass/Vol]99 mg/lIVfkbyc05-438Hnk [facility] Comment on above:Performed By: #### HSTROPN, CMP #### [facility] [address] [place] [address] Dr. Debra BlakePotassium [Moles/Vol]3.2 mmol/LCritically low3.5-5.1The [facility] HospitalComment on above:Performed By: #### HSTROPN, CMP #### [facility] [address] [place] [address] Dr. Debra BlakeProtein [Mass/Vol]7.1 g/dLNormal6.4-8.2The [facility] Comment on above:Performed By: #### HSTROPN, CMP #### [facility] [address] [place] [address] Dr. Debra BlakeSodium [Moles/Vol]124 mmol/LCritically mkm333-377Nzk [facility] HospitalComment on above:Performed By: #### HSTROPN, CMP #### [facility] [address] [place] [address] Dr. Debra BlakeUrea nitrogen [Mass/Vol]28.0 mg/dLCritically high7.0-18.0The [facility] HospitalComment on above:Performed By: #### HSTROPN, CMP #### [facility] [address] [place] [address] Dr. Debra BlakeUrea nitrogen/Creatinine [Mass ratio]10.1 mg/mgNormalThe [facility] HospitalComment on above:Performed By: #### HSTROPN, CMP #### [facility] [address] [place] [address] Dr. Debra Metz, HIGH SENSITIVITYon 84-34-2749RGBPCR04.9 pg/mLCritically high4.0-51.3The [facility] HospitalComment on above:Result Comment: CUT-OFF POINTS HAVE BEEN ESTABLISHED BASED ON THE FOURTH UNIVERSAL DEFINITIONS OF MYOCARDIAL INFARCTION. THE UPPER REFERENCE LIMIT (URL) OF TROPONIN, DEFINED THE 99TH PERCENTILE OF cTnI DISTRIBUTION IN A REFERENCE POPULATION, HAS BEEN CONFIRMED THE DECISION THRESHOLD FOR MS DIAGNOSIS.Performed By: #### HSTROPN, CMP #### [facility] [address] [place] [address] Dr. Debra BlakeHSTROP102.0 pg/mLCritically high4.0-51.3TC[facility] Comment on above:Result Comment: CUT-OFF POINTS HAVE BEEN ESTABLISHED BASED ON THE FOURTH UNIVERSAL DEFINITIONS OF MYOCARDIAL INFARCTION. THE UPPER REFERENCE LIMIT (URL) OF TROPONIN, DEFINED THE 99TH PERCENTILE OF cTnI DISTRIBUTION IN A REFERENCE POPULATION, HAS BEEN CONFIRMED THE DECISION THRESHOLD FOR MS DIAGNOSIS.Performed By: #### HSTROPN, CMP #### [facility] [address] [address] [address] Debra Moore MICROSCOPIC ONLYon 17-03-4238UKRTIHNTBPBRMVezsapttKIAX SEEN [facility] on above:Performed By: #### STEPHANE, ERUR #### [facility] [address] [address] [address] Debra Reyna identified Cx Nom (U)INDICATEDNormalThBlanchard Valley Health SystemComselect specialty hospital on above:Performed By: #### STEPHANE, ERUR #### [facility] [address] [address] [address] Debra Willett SEENNormalNONE SEENAvita Health System Bucyrus Hospital on above:Performed By: #### STEPHANE, ERUR #### [facility] [address] [place] [address] Dr. Debra Yuystals LM Nom (Urine sed)NONE SEENNormalNONE SEENAvita Health System Bucyrus [facility] on above:Performed By: #### STEPHANE, ERUR #### [facility] [address] [address] [address] Richardson ChangEpithelial cells LM Ql (Urine sed)FEWAbnormalNONE SEEN /RAREThe [facility] on above:Performed By: #### STEPHANE, ERUR #### [facility] [address] [address] [address] Debra FreemanCOUSNONE SEENNormalNONE SEENAvita Health System Bu[facility] on above:Performed By: #### STEPHANE, ERUR #### [facility] [address] [address] [address] Debra BlakeEnzbmCVC6-7Qxtjmvay4-1Daz [facility] on above:Performed By: #### STEPHANE, ERUR #### [facility] [address] [address] [address] Debra BlakeWBC (U) [#/Vol]/uLAbnormalNONE SEENThe [facility] HospitalComment on above:Performed By: #### MARIO CALDERÓN #### [facility] [address] [place] [address] Dr. Debra BlakeXR CHEST 1 Von 88-83-1642DS CHEST 1 VEXAMINATION: XR CHEST 1 V HISTORY: Dizziness COMPARISON: Chest x-rays 02/19/2015 TECHNIQUE: Portable chest FINDINGS: The lung parenchyma is free of consolidation or infiltrate. No pneumothorax or pleural effusion. The cardiac, mediastinal and hilar contours are normal. The visualized osseous structures exhibit no gross abnormality. IMPRESSION: No acute cardiopulmonary abnormality. Electronically authenticated by: CODY ALEXANDER Date: 2021-12-03 19:03[facility] Vital Signs Date TimeVital SignValuePerforming WecxwwhogDwuepylx95-69-4068 16:32-0584OuM2% (BldA) [Mass fraction]91 %[facility] HospitalComment on above:Performed By: #### ABG ####[facility] ([id number])[address] [place], [place] [id number] 20:56-1520PzC8% (BldA) [Mass fraction]99 % [facility] HospitalComment on above:Performed By: #### VBG ####[facility] ([id number])[address] [place] [address] 06-25-2024 04:20-8051DoF1% (BldA) [Mass fraction]100 %[facility] HospitalComment on above:Performed By: #### ABG ####[facility] ([id number])[address] [place], [place] [id number] 14:41-0400 SaO2% (BldA) [Mass fraction]100 %[facility]ALTHCAREMANProMer[facility] HospitalComment on above:Performed By: #### ABG ####[facility] ([id number])[address] [place], [place] [id number] 04:59-6298AhR0% (BldA) [Mass fraction]100 %[facility] REHMANProMedica Lynn HospitalComment on above:Performed By: #### ABG ####[facility] ([id number])2 [facility] [place] [address] 06-22-2024 05:02-7075FlB8% (BldA) [Mass fraction]97 %[facility] REHMANProMedica Lynn HospitalComment on above:Performed By: #### ABG ####[facility] ([id number])[address] [place], [place] [id number] 05:57-0400 SaO2% (BldA) [Mass fraction]97 %[facility] REHMANProMedica Lynn HospitalComment on above:Performed By: #### ABG ####[facility] ([id number])[address] [id number] 04:22-0596ChH4% (BldA) [Mass fraction]100 %[facility] REHMANProMedica Lynn HospitalComment on above:Performed By: #### ABG ####[facility] ([id number])[address] [facility] [place] [address] 06-16-2024 04:39-3919RoP3% (BldA) [Mass fraction]94 %[facility] REHMANProMedica Lynn HospitalComment on above:Performed By: #### ABG ####[facility] ([id number])[address] [place], [place] [id number] 03:45-0500 SaO2% (BldA) [Mass fraction]97 %[facility] REHMANProMedica Lynn HospitalComment on above:Performed By: #### ABG ####[facility] ([id number])[address] [facility]ITALCyn[facility] [place] [id number] 16:44-1837DtL6% (BldA) [Mass fraction]97 %[facility] HospitalComment on above:Performed By: #### ABG ####[facility] ([id number])2 [facility] [place] [address] 06-14-2024 12:03-1762MvF0% (BldA) [Mass fraction]96 %[facility] HospitalComment on above:Performed By: #### VBG ####[facility] ([id number])[address] [place], [place] 0247718-19-4073 20:05-0500 SaO2% (BldA) [Mass fraction]88 %[facility] HospitalComment on above:Performed By: #### VBG ####[facility] ([id number])[address] [place], [place] 1026094-19-3459 14:41-0400Diastolic blood eugmqaxl467 mm[Hg][facility]09-18-2024 14:41-0400Heart rate86 /min Katie Velasquez APRN Work Phone: [facility]09-18-2024 14:41-0400 Systolic blood nimmwyys645 mm[Hg][facility]09-18-2024 14:35-0400Body tpzkna917.1 cmThe [facility]09-18-2024 14:35-0400Body mass index (BMI) [Ratio]28.3 kg/r1LrmacznzsThe [facility] Hospital09-18-2024 14:35-0400Body bqatbioexvq81 [degF][facility]09-18-2024 14:35-0400Body vsbpju24.16 kgThe [facility] 12-27-2023 14:35-0400Heart lwjy216 /[facility] 12-27-2023 14:35-0400Respiratory rate20 /[facility] 12-27-2023 14:35-8258UeA2% (BldA) [Mass fraction]99 %[facility]06-20-2024 14:43-0400Body .1 cmThe [facility] 09-28-2023 14:43-0400Body mass index (BMI) [Ratio]25.6 kg/u7BykydhwluThe [facility] Hospital06-20-2024 14:43-0400Body efecco40.85 kgThe [facility]06-20-2024 14:43-0400Diastolic blood axuquwkl73 mm[Hg][facility]06-20-2024 14:43-0400Heart rate77 /minThe [facility] Hospital06-20-2024 14:43-7258EbY2% (BldA) [Mass fraction]98 %[facility]06-20-2024 14:43-0400Systolic blood gxjdmugb990 mm[Hg][facility]12-06-2022 20:42-0500Diastolic blood ayafsqzk86 mm[Hg]DO [employer] Work Phone: 1(063)068-[address] [place], [place] 1296112-06-2022 20:42-0500 Heart rate98 /minDO [employer] Work Phone: 1(395)047-[address] [place], [place] 1296112-06-2022 20:42-0500 Respiratory rate18 /minDO [employer] Work Phone: 1(432)018-[address] [place], [place] 1296112-06-2022 20:42-0500 SaO2% (BldA) [Mass fraction]99 %DO [employer] Work Phone: 1(960)390-[address] [place], [place] 1296112-06-2022 20:42-0500 Systolic blood mm[Hg]DO [employer] Work Phone: [phone]12-06-2022 18:02-0500 Body [degF]DO [employer] Work Phone: 1(835)3-[address] [place], [place] 1296112-06-2022 17:59-0500 Body .56 cmDO [employer] Work Phone: [facility]12-06-2022 17:59-0500 Body tzcjef42.3 kgDO [employer] Work Phone: [facility]12-06-2022 17:40-0500 Body .1 cmAbdul Vaibhav Other [employer] Other 12-06-2022 17:40-0500Body mass index (BMI) [Ratio] 25.39 kg/x9Wkptj Vaibhav Other [employer] Other 12-06-2022 17:40-0500Body aqahydfyjem39.6 [degF]William Vaibhav Other [employer] Other 12-06-2022 17:40-0500Body yossgt44.22 kgAbdul Vaibhav Other [employer] Other 12-06-2022 17:40-0500Diastolic blood tysfpdru758 mm[Hg]William Vaibhav Other [employer] Other 12-06-2022 17:40-0500Respiratory rate18 /minAbdul Vaibhav Other [employer] Other 12-06-2022 17:40-6317TlQ5% (BldA) [Mass fraction]98 % William Vaibhav Other [employer] Other 12-06-2022 17:40-0500Systolic blood galoozfe865 mm[Hg] William Vaibhav Other [employer] Other 113017-24-3587 11:52-0400Body rigcizgrakq26 [degF]DO [employer] Work Phone: [facility]09-02-2022 11:52-0400 Diastolic blood mm[Hg]DO [employer] Work Phone: 1(312)568-[address] [place], [place] 1296109-02-2022 11:52-0400 Heart rate77 /Allan Raymond [employer] Work Phone: [phone])[address]09-02-2022 11:52-0400 Respiratory rate16 /minDO Segundo [employer] Work Phone: 1(993)0-[address] [place], [place] 1296109-02-2022 11:52-0400 SaO2% (BldA) [Mass fraction]99 %DO [employer] Work Phone: [phone])[address]09-02-2022 11:52-0400 Systolic blood ztcqrymg028 mm[Hg]DO [employer] Work Phone: [phone] [place], [place] 9266109-02-2022 06:00-0400 Body qaxlwp01 kgDO [employer] Work Phone: [phone])[address]08-31-2022 14:53-0400 Body bslnaw721.1 cmDO [employer] Work Phone: [phone] [place] [address] Encounters Encounter DateEncounter TypeCare ProviderFacilityStart: 10-05-1319qhcafzuuxmUGE FAVIO A LEHMANNFacility:[facility] BellevueStart: 12-18-2024 End: 31-53-6905xdogyftuvyIGR FAVIO Alvarado LEHMANNFacility:[facility] BellevueStart: 06-89-5822xmemmfblqwMLV FAVIO LEANNFacility:[facility] BellevueStart: 09-17-2024 End: 20-64-3101Nrhalertzy and management of inpatientMichael Frings Facility:[facility]: 09-12-2024 End: 44-06-0088eslsuoupmgQVW C MILLERSt. Francis Hospitaltart: 09-09-2024 End: 20-42-2532Ngzigblwz encounterJerardo Ruth PERSONALIZED LIVING ASSISTANT Work Phone: NOLM FMStart: 08-28-2024 End: 18-74-3856Bxntsgqvh Result EncounterKiairam Stone Ruth PERSONALIZED LIVING ASSISTANT Work Phone: [facility] External Department UnsolicitedStart: 08-28-2024 End: 27-72-1744Cyhjcvrih Result EncounterKiairam Ruth PERSONALIZED LIVING ASSISTANT Work Phone: [facility] External Department UnsolicitedStart: 08-26-2024 End: 83-39-3100Oeavsjgcm encounterKiairam Ruth PERSONALIZED LIVING ASSISTANT Work Phone: [facility] CI FMStart: 08-16-2024 End: 26-82-7699Vmmiiqwng encounterKiairam Ruth PERSONALIZED LIVING ASSISTANT Work Phone: [facility] CI FMStart: 07-26-2024 End: 83-90-9873Nhkwifrdt encounterJerardo Ruth PERSONALIZED LIVING ASSISTANT Work Phone: [facility] CI FMStart: 07-09-2024 End: 51-92-9122trqbgtfpheXboq A Noori MD Work Phone: [facility] Sign InStart: 06-14-2024 [facility] Amb[facility] PPGStart: 06-13-2024 End: 46-44-9289Oucvpsjqmv and management of inpatientSBellevue Hospital HospitalStart: 06-13-2024 End: 79-63-9108qryfqagmyzQCUKIFV PROVIDERFacility:METROHealthStart: 06-13-2024 Non-patient / Non-visitJennifer Eva STUDENT SERVICES COUNSELOR Work Phone: [facility] Work Phone: Start: 24-19-6524Tvm-patient / Non-visitJennifer Locorbacher STUDENT SERVICES COUNSELOR Work Phone: [facility] Work Phone: Start: 06-12-2024 End: 49-14-3116nqlctpzugmVdytyqev Rohrbacher STUDENT SERVICES COUNSELOR Work Phone: [facility] Work Phone: start: 06-12-2024 End: 02-35-1293Clkcrifk ReferredJennifer Locorbacher STUDENT SERVICES COUNSELOR Work Phone: [facility]-LAB Path Spec [facility] HospStart: 04-22-2024 End: 20-03-5797Zpy-patient / Non-visitJenndaniel Adanrbacher STUDENT SERVICES COUNSELOR Work Phone: [facility] Work Phone: Start: 02-19-2024 End: 96-94-1574iqemudmybkSpnuqizz Rohrbacher STUDENT SERVICES COUNSELOR Work Phone: [facility] Work Phone: Start: 02-19-2024 End: 87-95-8308Zgnsggev ReferredRaoulnnifer Locorbacher STUDENT SERVICES COUNSELOR Work Phone: [facility]-LAB Path Spec [facility] HospStart: 12-27-2023 End: 95-82-2863ckacnquzroEyemsxayfTriHealth Work Phone: Start: 12-27-2023 End: 01-18-5203Mcevgoo encounter procedureAt[facility] Physician [facility] Work Phone: Start: 10-02-2023 End: 47-90-6306Jzzsmnpta encounterAbhijit Pink CMAProMedica Physicians RheumatologyStart: 09-28-2023 End: 44-86-5476ljqkbkptmfSzcxaszpqTriHealth Work Phone: Start: 09-28-2023 End: 24-09-3958Hljbjmq encounter procedureAt[facility] Health [facility] Physician [facility] Work Phone: Start: 03-15-2022 End: 49-39-2486Znojupoxu department patient visitDO [facility] Work Phone: [facility]-Emergency RoomStart: 03-15-2022 End: 30-66-6883xbdtlilcesIpqla Vaibhav Other [employer] Other Start: 35-94-6744Ppctnb outpatient visit 25 minutes William StevensSandra NephrologyStart: 12-19-2021 End: 77-50-9709jpstsirfohRQCVXUJ D KATKOFacility:Q4Gfqmo: 12-04-2021 End: 77-84-1632Nndfcogxtb and management of inpatientDO [employer] Work Phone: [facility] [place] [facility] Start: 12-03-2021 End: 46-00-4065iirlgvcszkPN UNIQUE Sher SMITHFacility:D2Jecym: 07-04-2017 End: 87-64-5153ZznaxpfuaiLDKIGYK PHYSICIANFacility:[facility]ITALtart: 05-02-2017 End: 51-25-0384HzarckziolNAZONVW PHYSICIANFacility:[facility] Procedures DateProcedureProcedure DetailPerforming ClinicianStart: 75-50-1523Izykydcz screenJennifer RohrbacherComment on above:Order Comment: Transfuse now? Y Number of units to transfuse now? 1 Transfuse now? Y Number of units to transfuse now? 1Result Comment: PERFORMED BY: [facility] [address] [place] [address] PATHOLOGIST QUALITY ASSURANCE MANAGER DENILSON COSTA M.D.Start: 53-48-9222WKI Sera Ruth PERSONALIZED LIVING ASSISTANT Work Phone: Start: 53-98-9266Thmsq chest X-rayDO [employer] Work Phone: Start: 39-33-3486VJ of abdomen and pelvis without contrastDO [employer] Work Phone: Start: 27-16-5504Mhbkmtmzebikjfu of bilateral kidneys DO [employer] Work Phone: Start: 31-85-1520US of chest without contrastDO [employer] Work Phone: Measurement of occult blood in stool specimen using immunoassayDO [employer] Work Phone: Urine cultureDO [employer] Work Phone: Plan of Treatment DateCare ActivityDetailAuthorStart: 76-44-7033Drzky BMI ScreeningAdult BMI ScreeningShelby Memorial Hospital SystemStart: 13-20-1651Hjgamrcky vaccinationInfluenza VaccineShelby Memorial Hospital SystemStart: 07-17-2024 End: 31-67-3276Jomvcom encounter fgybfjggp33/09/2025 2:30 PM EDT Office Visit [facility] [address] [place] [address] [place] [address] Rosalinda Nathan, DO [address] [facility], [address], [place] [address] [facility] Centertart: 86-67-4304Aaokp cultureThe [facility] Start: 65-47-0483Sooattyb identified in Urine by CultureUrine CultureMount St. Mary Hospitaltart: 27-70-9934Gsiefrz referralBethesda North Hospital Work Phone: Start: 97-49-2819Jgpowjcid vaccinationInfluenza VaccineUNC Health Blue Ridge - Valdesetart: 58-89-9619Ucbgkeh [facility] Work Phone: Start: 39-31-7688RmmgddtfaSouthview Medical Center Work Phone: Start: 70-65-0460Qribxiic to urologistGeorgetown Behavioral Hospital [facility] Work Phone: Start: 11-42-8094Gmhtfwrf to cardiologistGeorgetown Behavioral Hospital [facility]tr Work Phone: Start: 76-83-4404Koydgmqx to public safety officer [facility] Work Phone: Start: 89-21-2436Ngwfhydmjirsvj of prophylactic treatmentSouthview Medical Center Work Phone: Start: 44-92-6849Hvxjythp acid measurementSouthview Medical Center Work Phone: Start: 62-33-0112Xfnicntb to nephrologistGeorgetown Behavioral Hospital [facility] Work Phone: Start: 26-57-0525Yyaphnyj to Social ServicesGeorgetown Behavioral Hospital [facility]tr Work Phone: Start: 48-93-7984Bilgodey admissionGeorgetown Behavioral Hospital [facility]tr Work Phone: Start: 28-29-8585Cfzpwgfpbudhxg of varicella zoster vaccineZoster (Shingles) Vaccine (1 of 2)[facility] SystemStart: 49-91-2086Bavarejhw for malignant neoplasm of cervixPap SmearProOhio State Health System SystemStart: 40-51-2802YTzR,Tdap and Td Vaccines (1 - Tdap)DTaP,Tdap and Td Vaccines (1 - Tdap)[facility] SystemStart: 48-92-0616Jbkoi BMI Screening Adult BMI ScreeningShelby Memorial Hospital SystemStart: 09-87-7430Vacirweftl Screening Depression ScreeningShelby Memorial Hospital SystemStart: 21-50-4081Aowbdjd Screening Tobacco ScreeningBarnesville HospitalBlood chemistryGeorgetown Behavioral Hospital Ctr Work Phone: Comprehensive metabolic 2000 panel - Serum or Plasma [facility] HospitalMG Breast - bilateral DiagnosticThe Christ HospitalPatient EducationHigh Blood Pressure [facility] Work Phone: Patient referralGeorgetown Behavioral Hospital [facility]tr Work Phone: Phosphatidylethanol [Mass/volume] in [facility] Work Phone: Thiamine [Moles/volume] in [facility] Work Phone: US Breast - left limitedSacred Heart Hospital Payers DatePayer CategoryPayerPolicy [id number]-pay2024MedicaidAMERIHEALTH [place] MEDICAID Member Subscriber Plan / Payer (Effective 2023-Present) Name: Orestes Alvares Relation to Subscriber: Self Name: Orestes Alvares Payer ID: Not on file Group ID: Not on file Type: Not on file Address: [address] [place] [id number] [id number] Health [place] [id number]ckd [id number] 2..1.711303.3.57[id number] 2..1.389863.3.57[id number] 2..1.325497.3.57[id number] 2..1.271244.3.57[id number] 2..1.358396.3.57[id number] 2.16.840.1.557678.3.57[id number] 2.16.840.1.045995.3.57[id number] 2.16.840.1.680912.3.57[id number] 2.16.840.1.958240.3.57[id number] 2.16.840.1.932557.3.57[id number] 2.16.840.1.014830.3.57[id number] 5wiqgjht-[id number] 2.16.840.1.2[id number] 2.16.840.1.673347.3.579.2.531 [id number] 2.16.840.1.475779.3.579.2.531 Social History DateTypeDetailFacilityStart: 12-08-2021 End: 26-08-3761Knvdmfq smoking status NHISSmoker (finding)[facility]tart: 49-56-2667Phq Assigned At BirthFeMercy Health St. Anne Hospitaltart: 31-24-1716Vbb Assigned At [facility] HospitalNocitizens [facility] [employer] Other Start: 11-13-2014 End: 05-31-5372ZndExkzsa (finding)[facility] HospitalTobacco smoking status NHISTobacco smoking consumption unknownProMedica Health System Start: 28-81-9727Djrkwpp of Social functionProMedica Health SystemChildcare UnknownProMedica Health SystemStart: 78-97-3631Vjj assigned at birthNot on file [facility] Goals DatePatient GoalDesired Activity/StatePersonal health goalComment on above: Evaluation of progress towards goal: Progress towards discharge Functional Status JgvsRylxtnfqmsJdigodCtvvzpbj16-09-6954Efmogcnoew statusPatient is Progressing Toward [facility] Work Phone: Mental Status RpjlUkgpztehjoEivcsuAikvifdz27-09-3360Wxurdtkwk functionCognitive Status Patient at [facility] Work Phone: Clinical Notes 12-04-2021 to 09-09-2024 Note Date & EemeSthoCtflxrjm42-37-6794 Telephone encounter Note* Telephone Encounter - Jerardo Ruth NP - 09/09/2024 3:28 PM EDT Requested Prescriptions Signed Prescriptions Disp Refills HYDROcodone-acetaminophen ([place]) 5-325 MG tablet 120 tablet 0 Sig: Take 1 tablet by mouth every 6 (six) hours if needed for severe pain Authorizing Provider: JERARDO RUTH [facility] HospitalElxfjvckhm46-55-8857 Miscellaneous Notes* Telephone Encounter - Jerardo Ruth NP - 09/09/2024 3:28 PM EDT Requested Prescriptions Signed Prescriptions Disp Refills HYDROcodone-acetaminophen ([place]) 5-325 MG tablet 120 tablet 0 Sig: Take 1 tablet by mouth every 6 (six) hours if needed for severe pain Authorizing Provider: JERARDO RUTH documented in this encounterScotland County Memorial HospitalKyjmmwgwfj99-91-5437 Telephone encounter Note* Telephone Encounter - Jerardo Ruth NP - 08/26/2024 4:52 PM EDT Requested Prescriptions Signed Prescriptions Disp Refills LORazepam (Ativan) 0.5 MG tablet 42 tablet 0 Sig: Take 1 tablet (0.5 mg) by mouth every 8 (eight) hours if needed for anxiety for up to 14 days Authorizing Provider: JERARDO RUTH [place] [address]Cnscyagvis12-03-1583 Miscellaneous Notes* Telephone Encounter - Jerardo Ruth NP - 08/26/2024 4:52 PM EDT Requested Prescriptions Signed Prescriptions Disp Refills LORazepam (Ativan) 0.5 MG tablet 42 tablet 0 Sig: Take 1 tablet (0.5 mg) by mouth every 8 (eight) hours if needed for anxiety for up to 14 days Authorizing Provider: JERARDO RUTH documented in this encounterScotland County Memorial HospitalTewbthbqlu89-49-1697 Telephone encounter Note* Telephone Encounter - Jerardo Ruth NP - 08/16/2024 1:59 PM EDT Requested Prescriptions Signed Prescriptions Disp Refills LORazepam (Ativan) 1 MG tablet 30 tablet 0 Sig: Take 1 tablet (1 mg) by mouth Daily Give daily before HD on dialysis days Authorizing Provider: JERARDO RUTH [place] [address]Rccfgfpdbd47-92-8302 Miscellaneous Notes* Telephone Encounter - Jerardo Ruth NP - 08/16/2024 1:59 PM EDT Requested Prescriptions Signed Prescriptions Disp Refills LORazepam (Ativan) 1 MG tablet 30 tablet 0 Sig: Take 1 tablet (1 mg) by mouth Daily Give daily before HD on dialysis days Authorizing Provider: JERARDO RUTH documented in this encounterScotland County Memorial HospitalLrrushboex86-14-7065 Telephone encounter Note* Telephone Encounter - Jerardo Ruth NP - 07/26/2024 11:49 AM EDT Requested Prescriptions Signed Prescriptions Disp Refills LORazepam (Ativan) 0.5 MG tablet 28 tablet 0 Sig: Take 2 tablets (1 mg) by mouth Daily for 14 days Give daily before HD on Mon, , Mon, , Monday. Authorizing Provider: JERARDO RUTH [facility] HospitalSgbxofqwdq81-06-8617 Miscellaneous Notes* Telephone Encounter - Jerardo Ruth NP - 07/26/2024 11:49 AM EDT Requested Prescriptions Signed Prescriptions Disp Refills LORazepam (Ativan) 0.5 MG tablet 28 tablet 0 Sig: Take 2 tablets (1 mg) by mouth Daily for 14 days Give daily before HD on Mon, , Mon, , Monday. Authorizing Provider: JERARDO RUTH documented in this encounterScotland County Memorial HospitalXneugjtqik55-25-9811 History of Present illness Narrative* Quintin Forman MD - 07/09/2024 2:59 PM EDT BAL cultures collected on 07/02 growing MRSA the results were finalized after patient's discharge. Currently patient is residing at [facility], which were contacted and patient caring staff was notified. documented in this encounterBarnesville Hospital09-18-2024 Evaluation note* Diagnosis Onset Date Resolution Status Admit Date Alcohol abuse acuteSept2023 2:30pmBreast enlargementacuteSept2023 2:30pmBreast skin changesacuteSept2023 2:30pmFrequent fallsacute December 27, 2023 2:30pmGERD (gastroesophageal reflux disease)acuteSept2023 2:30pmHypertensionacuteSept2023 2:30pmHypomagnesemiaacute December 27, 2023 2:30pmHypothyroidacuteSept2023 2:30pmLupusacute December 27, 2023 2:30pmNoncomplianceacuteSept2023 2:30pm Paroxysmal atrial fibrillation with RVRacuteSept2023 2:30pm Rheumatoid arthritisacuteSept2023 2:30pmStress-induced cardiomyopathyacuteSept2023 2:30pmType 2 myocardial infarctionacute December 27, 2023 2:30pmWeaknessacuteSept2023 2:30pm [facility] Work Phone: 1(165) 771-322606-24-2024 Miscellaneous Notes* Telephone Encounter - Abhijit Pink CMA - 10/02/2023 9:55 AM EDT Called patient in regards to referral and we were to far of a drive. Advised patient to call referring provider to look for someone closer. documented in this encounterHolden Memorial HospitalBypass Mobile06-24-2024 Telephone encounter Note* Telephone Encounter - Abhijit Pink CMA - 10/02/2023 9:55 AM EDT Called patient in regards to referral and we were to [place] a drive. Advised patient to call referring provider to look for someone closer. [facility]Zeenshare[facility] Evaluation note* Encounter Date Diagnosis Assessment Notes [...] Advised to go to the emergency room. [employer] Other 09-02-2022 Discharge summary Author Hong Jewell [facility] December 10, 2021 7:47pmNote Date/TimeSept2021 1:26pm[place] [address] Discharge Summary Signed Patient: Orestes Alvares MR#: [id number] : 1965 Acct:[id number] Age/Sex: 56 / F Adm Date: 2 Loc: Room: [address] [place] [address]: Hong Jewell DO Copies to: [...] about 24 hours before bed opened up. [facility]. Here in the hospital she did [...] ablation for that problem x2 at the [facility]. She had nephrology consultation. He felt [...] % (Auto) 62.7, Lymph % (Auto) 21.7, [place] % (Auto) 11.2, Eos % (Auto) 3.5, Baso % (Auto) 0.9, Neut # (Auto) 3.9, Lymph # (Auto) 1.4, [place] # (Auto) 0.7, Eos # (Auto) 0.2, Baso # (Auto) 0.1, Nucleated RBC % (auto) 0.0 12/09/21 18:15: Hgb 8.0 L, Hct 24.2 L 12/09/21 14:48: Double Strand DNA Ab <1 12/07/21 12:45: Ur Random Albumin 69.2, U Random Total Protein 51.3, U Zhdfd-1-Inrlyyst (%) 3.1, U Random p-3-Rpmxsqip % 6.0, U Random b-Globulin % 13.5, [...] <Electronically signed by Hong Jewell DO> 12/10/211946 [facility] Work Phone: 1(260) 777-673009-02-2022 Progress note Author William Esposito [facility] December 10, 2021 11:31amNote Date/TimeSept2021 11:24[place] [address] Nephrology Progress Note Signed Patient: Orestes Alvares MR#: [id number] : 1965 Acct:[id number] Age/Sex: 56 / F Adm Date: 2 Loc: 4 Room: 3S5290-9 Type: ADM IN Attending Dr: Hong Jewell DO Copies to: ~ Date of Service: 12/10/2021 Subjective Subjective Narrative: Mrs. Alvares is a 56-year-old white female with history of COPD, smoker, alcohol abuse and hypothyroidism on levothyroxine who was transferred from [facility] on 12/04 for abnormal blood work [...] and 1 g of calciumbefore transfer to [facility]. 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 Musculoskeletal: No joint [...] 324 Mg Tablet.) 324 mg PO Q48H [facility] Stop: 12/09/22 09:14 Last Admin: 12/09/21 09:37 [...] 750 Mg Tablet) 750 mg PO Q48H [facility] Stop: 12/11/21 09:01 Last Admin: 12/09/21 08:13 Dose: 750 mg Levothyroxine Sodium (Levothyroxine 50 Mcg Tablet) 50 mcg PO DAILY.0630 [facility] Stop: 12/05/22 06:29 Last Admin: 12/10/21 07:31 Dose: 50 mcg Metoprolol Succinate (Metoprolol Succinate 100 Mg Tab.Er.24h) 100 mg PO DAILY [facility] Stop: 12/04/22 17:43 Last Admin: 12/10/21 08:30 Dose: 100 mg Metoprolol Tartrate (Metoprolol Tartrate 5 Mg/5 Ml Vial) 5 mg IV-PUSH Q4H PRN PRN Reason: tachycardia Stop: 12/06/22 19:17 Nicotine (Nicotine Patch 21 Mg/24hr 1 Each Patch.Td24) 1 each TRANSDERML DAILY [facility] Stop: 12/06/22 08:59 Last Admin: 12/10/21 08:31 Dose: Not Given Omeprazole (Omeprazole 20 Mg Capsule.) 20 mg PO DAILY [facility] Stop: 12/05/22 08:59 Last Admin: 12/10/21 08:31 [...] signed by William Esposito MD> 12/10/21 1131 [facility] Work Phone: 1(911) 110-772109-01-2022 Progress note Author Hong Jewell [facility] December 09, 2021 4:10pmNote Date/TimeSept2021 4:10pm[place] [address] Hospitalist Progress Note Signed Patient: Orestes Alvares MR#: [id number] : 1965 Acct:[id number] Age/Sex: 56 / F Adm Date: 2 Loc: 4 Room: [address] [place] [address] Type: ADM IN Attending Dr: Hong Jewell [...] 40 Mg Tablet PO 12/10/22 07:59 DAILY.8A [facility] Magnesium Sulfate 2 gm in 50 mls [...] signed by Hong Jewell DO> 12/09/21 1610 [facility] Work Phone: 1(115) 885-994109-01-2022 Progress note Author William Esposito [facility] December 09, 2021 10:58amNote Date/TimeSept2021 10:58[place] [address] Nephrology Progress Note Signed Patient: Orestes Alvares MR#: [id number] : 1965 Acct:[id number] Age/Sex: 56 / F Adm Date: 2 Loc: Room: [address] [place] [address] Type: ADM IN Attending Dr: Hong Jewell DO Copies to: ~ Date of Service: 12/09/2021 Subjective Subjective Narrative: Mrs. Alvares is a 56-year-old white female with history of COPD, smoker, alcohol abuse and hypothyroidism on levothyroxine who was transferred from [facility] on 12/04 for abnormal blood work [...] and 1 g of calciumbefore transfer to [facility]. 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 Musculoskeletal: No joint [...] 500 Mg Tablet) 500 mg PO BID.WITH.BFAST.LUNCH [facility] Stop: 12/05/22 07:59 Last Admin: 12/09/21 08:25 Dose: 500 mg Calcium Carbonate (Calcium Carbonate 500 Mg Tablet) 1,000 mg PO BID [facility] Stop: 12/06/22 09:29 Last Admin: 12/09/21 08:13 [...] 40 Mg Tablet) 40 mg PO DAILY.8A [facility] Stop: 12/10/22 07:59 Magnesium Sulfate (Magnesium Sulf 2gm-*Swfi*) 2 gm in 50 mls @ 25 mls/hr IV DAILY PRN PRN Reason: Magnesium Level < 1.5 Stop: 12/04/22 10:15 Folic Acid 1 mg/ Dextrose 50.2 mls @ 100.4 mls/hr IV DAILY [facility] Stop: 12/04/22 13:59 Last Admin: 12/09/21 09:37 [...] 100 Mg Tab.Er.24h) 100 mg PO DAILY [facility] Stop: 12/04/22 17:43 Last Admin: 12/09/21 08:14 Dose: 100 mg Metoprolol Tartrate (Metoprolol Tartrate 5 Mg/5 Ml Vial) 5 mg IV-PUSH Q4H PRN PRN Reason: tachycardia Stop: 12/06/22 19:17 Nicotine (Nicotine Patch 21 Mg/24hr 1 Each Patch.Td24) 1 each TRANSDERML DAILY [facility] Stop: 12/06/22 08:59 Last Admin: 12/09/21 08:15 Dose: Not Given Omeprazole (Omeprazole 20 Mg Capsule.Dr) 20 mg PO DAILY [facility] Stop: 12/05/22 08:59 Last Admin: 12/09/21 08:14 Dose: 20 mg Potassium Chloride (Potassium Chloride Er 20 Meq Tab.Er.Prt) 20 meq PO DAILY PRN PRN Reason: Hypokalemia Stop: 12/04/22 10:15 Potassium Chloride (Potassium Chloride Er 20 Meq Tab.Er.Prt) 40 meq PO DAILY PRN PRN Reason: Hypokalemia Stop: 12/04/22 10:15 Sodium Bicarbonate (Sodium Bicarbonate 650 Mg Tablet) 650 mg PO TID [facility] Stop: 12/07/22 13:59 Last Admin: 12/09/21 08:14 [...] Unique Enciso M.D.12/08/2021 5:49 PM Dictation Location: [place] [address] Any impression(s) listed above is documentation that [...] <Electronically signed by William Esposito MD> 12/09/211057 [facility] Work Phone: [phone]) [phone] Progress note Author Claude Castellanos [facility] December 08, 2021 6:59pmNote Date/TimeAugust 2021 6:[place] [address] Hospitalist Progress Note Signed Patient: Orestes Alvares MR#: [id number] : 1965 Acct:[id number] Age/Sex: 56 / F Adm Date: 2 Loc: 4P Room: 3F6655-8 Type: ADM IN Attending Dr: Claude Castellanos [...] <Electronically signed by Claude Castellanos MD> 12/08/21 [facility] Work Phone: [phone]) 416-159008-31-2022 Consult note Author Luis Sams [facility] December 08, 2021 3:55pmNote Date/TimeAugust 2021 3:55[place] [address] Urology Consult Note Signed Patient: Orestes Alvares MR#: [id number] : 1965 Acct:[id number] Age/Sex: 56 / F Adm Date: 2 Loc: 4 Room: [address] [place] [address] Type: ADM IN Attending Dr: Claude Castellanos MD Copies to: DO Claude Rose MD Patrick R Waters, MD~ History of Present Illness Consult Details Consult Date: 12/08/2021 Requesting Provider: Claude Castellanos MD HPI: This lady was admitted to the hospital after transfer from [facility] dueto low sodium, calcium and magnesium [...] % (Auto) 55.8, Lymph % (Auto) 27.7, [place] % (Auto) 13.1, Eos % (Auto) 2.7, Baso % (Auto) 0.7, Neut # (Auto) 3.1, Lymph # (Auto) 1.6, [place] # (Auto) 0.7, Eos # (Auto) 0.2, [...] % (Auto) 83.6, Lymph % (Auto) 7.8, [place] % (Auto) 8.3, Eos % (Auto) 0.1, Baso % (Auto) 0.2, Neut # (Auto) 6.2, Lymph # (Auto) 0.6 L, [place] # (Auto) 0.6, Eos # (Auto) 0.0, [...] signed by MD Luis Sams> 12/08/21 1550 [facility] Work Phone: 1([phone]) [phone] Progress note Author William Esposito [facility] December 08, 2021 11:01amNote Date/TimeAugust 2021 10:55[place] [address] Nephrology Progress Note Signed Patient: Orestes Alvares MR#: [id number] : 1965 Acct:[id number] Age/Sex: 56 / F Adm Date: 2 Loc: Room: [address] [place] [address] Type: ADM IN Attending Dr: Claude Castellanos MD Copies to: ~ Date of Service: 12/08/2021 Subjective Subjective Narrative: Mrs. Alvares is a 56-year-old white female with history of COPD, smoker, alcohol abuse and hypothyroidism on levothyroxine who was transferred from [facility] on 12/04 for abnormal blood work [...] and 1 g of calciumbefore transfer to [facility]. 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 Musculoskeletal: No joint [...] 500 Mg Tablet) 500 mg PO BID.WITH.BFAST.LUNCH [facility] Stop: 12/05/22 07:59 Last Admin: 12/08/21 08:29 Dose: 500 mg Calcium Carbonate (Calcium Carbonate 500 Mg Tablet) 1,000 mg PO BID [facility] Stop: 12/06/22 09:29 Last Admin: 12/08/21 08:29 [...] 50.2 mls @ 100.4 mls/hr IV DAILY [facility] Stop: 12/04/22 13:59 Last Admin: 12/08/21 09:44 Dose: 100 mls/hr Thiamine HCl 200 mg/ Sodium (Chloride) 102 mls @ 204 mls/hr IV TID [facility] Stop: 12/04/22 21:59 Last Infusion: 12/08/21 08:59 Dose: Infused Levofloxacin (Levofloxacin 750 Mg Tablet) 750 mg PO Q48H [facility] Levothyroxine Sodium (Levothyroxine 50 Mcg Tablet) 50 mcg PO DAILY.0630 [facility] Stop: 12/05/22 06:29 Last Admin: 12/08/21 05:51 [...] 20 Mg Capsule.Dr) 20 mg PO DAILY [facility] Stop: 12/05/22 08:59 Last Admin: 12/08/21 08:28 Dose: 20 mg Potassium Chloride (Potassium Chloride Er 20 Meq Tab.Er.Prt) 20 meq PO DAILY PRN PRN Reason: Hypokalemia Stop: 12/04/22 10:15 Potassium Chloride (Potassium Chloride Er 20 Meq Tab.Er.Prt) 40 meq PO DAILY PRN PRN Reason: Hypokalemia Stop: 12/04/22 10:15 Sodium Bicarbonate (Sodium Bicarbonate 650 Mg Tablet) 650 mg PO TID [facility] Stop: 12/07/22 13:59 Last Admin: 12/08/21 08:28 Dose: 650 mg Sodium Chloride (Sodium Chloride 0.9 % 10 Ml Syringe) 0 ml IV-PUSH PRN PRN PRN Reason: Flush Stop: 12/04/22 10:15 Last Admin: 12/05/21 22:07 Dose: 10 ml Vitamin D (Cholecalciferol 10 Mcg (400 Units) Tablet) 20 mcg PO BID.WITH.MEALS [facility] Stop: 12/07/22 07:59 Last Admin: 12/08/21 08:28 [...] Unique Enciso M.D.12/07/2021 4:27 PM Dictation Location: [place] [address] Any impression(s) listed above is documentation that [...] signed by William Esposito MD> 12/08/21 1101 [facility] Work Phone: [phone] 172-751408-30-2022 Progress note Author Claude Castellanos [facility] December 07, 2021 8:00pmNote Date/TimeAugust 2021 8:00[place] [address] Hospitalist Progress Note Signed Patient: Orestes Alvares MR#: [id number] : 1965 Acct:[id number] Age/Sex: 56 / F Adm Date: 2 Loc: Room: [address] [place] [address] Type: ADM IN Attending Dr: Claude Castellanos [...] <Electronically signed by Claude Castellanos MD> 12/07/211999 [facility] Work Phone: [phone] Consult note Author Kylah Verdugo [facility] December 07, 2021 4:57pmNote Date/TimeAugust 2021 4:51[place] [address] Cardiology Consult Note Signed Patient: Orestes Alvares MR#: [id number] : 1965 Acct:[id number] Age/Sex: 56 / F Adm Date: 2 Loc: Room: [address] [place] [address] Type: ADM IN Attending Dr: Claude Castellanos MD Copies to: DO Claude Rose MD Hassan M Ibrahim, MD, FACC~ Cardiology HPI History of Present Illness Consult Date: 12/07/21 Reason for Consult: Paroxysmal atrial fibrillation HPI: Ms. Alvares is a 56 year old female who is being seen at the request of the hospitalist because ofparoxysmal atrial fibrillation. Patient presented to [place] emergency department with syncopal event believed to [...] denies any complaints. While she was in [place] emergency department her high-sensitivitytroponin was elevated at [...] Lymph # (Auto) 0.6 L (1.00-4.8) x10E3/uL [place] # (Auto) 0.6 (0.0-0.8) x10E3/uL Eos # [...] 50 ml @ 100.4 mls/hr IV DAILY [facility] Rx#:[id number] Thiamine 200 mg In Sodium 102 / 102 Chloride 0.9% 100 ml 100 ml @ 204 mls/hr IV TID [facility] Rx#: [id number] Oral 150 / 350 200 / 350 [...] failure, unspecified Documented By: Kylah Verdugo MD, [facility] 2 1649 Signed By: <Electronically signed by [facility] Kylah Verdugo> 12/07/217 [facility] Work Phone: [phone]) 525-948108-30-2022 Progress note Author William Esposito [facility] December 07, 2021 10:38amNote Date/TimeAugust 2021 10:34[place] [address] Nephrology Progress Note Signed Patient: Orestes Alvares MR#: [id number] : 1965 Acct:[id number] Age/Sex: 56 / F Adm Date: 2 Loc: Room: [address] [place] [address] Type: ADM IN Attending Dr: Claude Castellanos MD Copies to: ~ Date of Service: 12/07/2021 Subjective Subjective Narrative: Mrs. Alvares is a 56-year-old white female with history of COPD, smoker, alcohol abuse and hypothyroidism on levothyroxine who was transferred from [facility] on 12/04 for abnormal blood work [...] and 1 g of calciumbefore transfer to [facility]. 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 Musculoskeletal: No joint [...] 500 Mg Tablet) 500 mg PO BID.WITH.BFAST.LUNCH [facility] Stop: 12/05/22 07:59 Last Admin: 12/07/21 08:12 Dose: 500 mg Calcium Carbonate (Calcium Carbonate 500 Mg Tablet) 1,000 mg PO BID [facility] Stop: 12/06/22 09:29 Last Admin: 12/07/21 08:11 [...] 50.2 mls @ 100.4 mls/hr IV DAILY [facility] Stop: 12/04/22 13:59 Last Infusion: 12/07/21 09:30 Dose: Infused Thiamine HCl 200 mg/ Sodium (Chloride) 102 mls @ 204 mls/hr IV TID [facility] Stop: 12/04/22 21:59 Last Infusion: 12/07/21 09:17 Dose: Infused Levofloxacin (Levaquin) 750 mg in 150 mls @ 100 mls/hr IV Q48H [facility] Last Admin: 12/07/21 09:31 Dose: 100 mls/hr Sodium Bicarbonate 150 meq/ (Dextrose) 1,150 mls @ 100 mls/hr IV .[id number] [facility] Stop: 12/06/22 19:29 Last Admin: 12/06/21 20:18 Dose: 100 mls/hr Levothyroxine Sodium (Levothyroxine 50 Mcg Tablet) 50 mcg PO DAILY.0630 [facility] Stop: 12/05/22 06:29 Last Admin: 12/07/21 05:42 [...] Rossi Salinas M.D.12/06/2021 6:01 PM Dictation Location: [place] [address] Any impression(s) listed above is documentation that [...] signed by William Esposito MD> 12/07/21 1038 [facility] Work Phone: [phone]) [phone] Progress note Author Hong Jewell [facility] December 06, 2021 7:32pmNote Date/TimeAugust 2021 7:32[place] [address] Hospitalist Progress Note Signed Patient: Orestes Alvares MR#: [id number] : 1965 Acct:[id number] Age/Sex: 56 / F Adm Date: 2 Loc: Room: 0X9796-0 Type: ADM IN Attending Dr: Hong Jewell [...] known that when the patient first came [facility] she was concerned about missing [...] that she reported were completed at the [facility]. Given her vasovagal syncope in the [...] 11:01 Dextrose IV 12/06/21 20:59 100 mls/hr .[id number] [facility] Administration Sodium Chloride 1,000 mls @ [...] Tab.Er.24h PO 12/04/22 17:43 Not Given DAILY [facility] Nicotine 1 each 12/06/21 09:00 12/06/21 15:07 [...] <Electronically signed by Hong Jewell DO> 12/06/211931 [facility] Work Phone: [phone]) [phone] Consult note Author Rehan Russ [facility] December 06, 2021 5:46pmNote Date/TimeAugust 2021 5:[address]pm[address] [address] Gastroenterology Consult Note Signed Patient: Orestes Alvares MR#: [id number] : 1965 Acct:[id number] Age/Sex: 56 / F Adm Date: 2 Loc: Room: [address] [place] [address] Type: ADM IN Attending Dr: Hong Jewell [...] recorded. The patient was transferred to the [place] ER and admitted the day before yesterday [...] EGD and colonoscopy several years ago in [place]. She was told that she had a gastric polyp and a colon polyp. She has not had this rechecked. Hemoglobin did drop to 7.7 but is now 8.7. Stool for occult blood is negative. Blood counts show macrocytic indices with normal ferritin. Review of systems includes hypertension, hypothyroidism, history of MS, history of SVT. cc:: CC: Hong Jewell [...] % (Auto) 62.7 Lymph % (Auto) 19.7 [place] % (Auto) 14.4 Eos % (Auto) 2.3 Baso % (Auto) 0.9 Neut # (Auto) 4.0 Lymph # (Auto) 1.3 [place] # (Auto) 0.9 H Eos # (Auto) [...] MPV Neut % (Auto) Lymph % (Auto) [place] % (Auto) Eos % (Auto) Baso % (Auto) Neut # (Auto) Lymph # (Auto) [place] # (Auto) Eos # (Auto) Baso # [...] <Electronically signed by MD Rehan Russ> 12/06/211745 [facility] Work Phone: 1([phone]) [phone] Progress note Author William Esposito [facility] December 06, 2021 1:19pmNote Date/TimeAugusdalton 2021 1:19[place] [address] Nephrology Progress Note Signed Patient: Orestes Alvares MR#: [id number] : 1965 Acct:[id number] Age/Sex: 56 / F Adm Date: 2 Loc: Room: [address] [place] [address] Type: ADM IN Attending Dr: Hong Jewell DO Copies to: ~ Date of Service: 12/06/2021 Subjective Subjective Narrative: Mrs. Alvares is a 56-year-old white female with history of COPD, smoker, alcohol abuse and hypothyroidism on levothyroxine who was transferred from [facility] on 12/04 for abnormal blood work [...] and 1 g of calciumbefore transfer to [facility]. 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 Musculoskeletal: No joint [...] 50.2 mls @ 100.4 mls/hr IV DAILY [facility] Stop: 12/04/22 13:59 Last Admin: 12/06/21 11:00 Dose: 100 mls/hr Thiamine HCl 200 mg/ Sodium (Chloride) 102 mls @ 204 mls/hr IV TID [facility] Stop: 12/04/22 21:59 Last Admin: 12/05/21 22:05 Dose: 204 mls/hr Levofloxacin (Levaquin) 750 mg in 150 mls @ 100 mls/hr IV Q48H [facility] Last Admin: 12/05/21 09:17 Dose: 100 mls/hr Ferric Sodium Gluconate Complex 250 mg/ Sodium Chloride 270 mls @ 135 mls/hr IVQAM [facility] Stop: 12/09/21 08:59 Last Admin: 12/06/21 11:01 Dose: 135 mls/hr Sodium Bicarbonate 150 meq/ (Dextrose) 1,150 mls @ 100 mls/hr IV .[id number] [facility] Stop: 12/06/21 20:59 Last Admin: 12/06/21 11:01 Dose: 100 mls/hr Levothyroxine Sodium (Levothyroxine 50 Mcg Tablet) 50 mcg PO DAILY.0630 [facility] Stop: 12/05/22 06:29 Last Admin: 12/06/21 05:30 [...] 100 Mg Tab.Er.24h) 100 mg PO DAILY [facility] Stop: 12/04/22 17:43 Last Admin: 12/06/21 11:12 Dose: Not Given Nicotine (Nicotine Patch 21 Mg/24hr 1 Each Patch.Td24) 1 each TRANSDERML DAILY [facility] Stop: 12/06/22 08:59 Omeprazole (Omeprazole 20 Mg [...] signed by William Esposito MD> 12/06/21 1319 [facility] Work Phone: 1([phone] Progress note Author Hong Jewell [facility] December 05, 2021 5:23pmNote Date/TimeAugust 2021 5:[place] [address] Hospitalist Progress Note Signed with Addenda Patient: Orestes Alvares MR#: [id number] : 1965 Acct:[id number] Age/Sex: 56 / F Adm Date: 2 Loc: 3T Room: [address] [place] [address] Type: ADM IN Attending Dr: Hong Jewell [...] Lactated Ringer's IV 12/04/22 14:14 75 mls/hr .[id number] [facility] Administration Folic Acid 1 mg/ Dextrose [...] signed by Hong Jewell DO> 12/05/21 172 [facility] Work Phone: [phone]) [phone] Consult note Author Nilesh Oakley [facility] December 05, 2021 2:55pmNote Date/TimeAugust 2021 2:55[place] [address] Nephrology Consult Note Signed Patient: Orestes Alvares MR#: [id number] : 1965 Acct:[id number] Age/Sex: 56 / F Adm Date: 2 Loc: Room: [address] [place] [address] Type: ADM IN Attending Dr: Hong Jewell DO Copies to: DO Nilesh Rose MD Kristopher L Lindbloom, DO~ Providers Consult Date: 12/05/21 Requesting Provider: Hong eJwell DO Primary Care Provider: Segunod Rawls DO HPI Reason for Consult: Hyponatremia 125 mmol/L History of Present Illness: Mrs. Alvares is a 56-year-old white female with history of COPD, smoker, alcohol abuse and hypothyroidism on levothyroxine who was transferred from [facility] on 12/04 for abnormal blood work [...] and 1 g of calciumbefore transfer to [facility]. Today's creatinine is slightly better 1.87 mg/dL [...] 500 Mg Tablet) 500 mg PO BID.WITH.BFAST.LUNCH [facility] Stop: 12/05/22 07:59 Last Admin: 12/05/21 11:55 Dose: 500 mg Magnesium Sulfate (Magnesium Sulf 2gm-*Swfi*) 2 gm in 50 mls @ 25 mls/hr IV DAILY PRN PRN Reason: Magnesium Level < 1.5 Stop: 12/04/22 10:15 Potassium Chloride 20 meq/ (Lactated Ringer's) 1,010 mls @ 75 mls/hr IV .[id number] [facility] Stop: 12/04/22 14:14 Last Admin: 12/05/21 01:34 Dose: 75 mls/hr Folic Acid 1 mg/ Dextrose 50.2 mls @ 100.4 mls/hr IV DAILY [facility] Stop: 12/04/22 13:59 Last Admin: 12/05/21 09:17 Dose: 100 mls/hr Thiamine HCl 200 mg/ Sodium (Chloride) 102 mls @ 204 mls/hr IV TID [facility] Stop: 12/04/22 21:59 Last Admin: 12/05/21 09:17 Dose: 204 mls/hr Levofloxacin (Levaquin) 750 mg in 150 mls @ 100 mls/hr IV Q48H [facility] Last Admin: 12/05/21 09:17 Dose: 100 mls/hr Levothyroxine Sodium (Levothyroxine 50 Mcg Tablet) 50 mcg PO DAILY.0630 [facility] Stop: 12/05/22 06:29 Last Admin: 12/05/21 06:55 Dose: Not Given Metoprolol Succinate (Metoprolol Succinate 100 Mg Tab.Er.24h) 100 mg PO DAILY [facility] Stop: 12/04/22 17:43 Last Admin: 12/05/21 09:17 Dose: 100 mg Omeprazole (Omeprazole 20 Mg Capsule.Dr) 20 mg PO DAILY [facility] Stop: 12/05/22 08:59 Last Admin: 12/05/21 09:17 [...] Cloudy A Urine pH 5.5 Ur Specific [place] 1.013 Urine Protein 30 H Urine Glucose [...] signed by MD Nilesh Oakley> 12/05/21 1455 [facility] Work Phone: 1([phone]) 364-119208-27-2022 History and physical note Author Hong Jewell [facility] December 04, 2021 9:07pmNote Date/TimeAugust 2021 9:07[place] [address] Hospitalist H&P Signed Patient: Orestes Alvares MR#: [id number] : 1965 Acct:[id number] Age/Sex: 56 / F Adm Date: 2 Loc: Room: [address] [place] [address] Type: ADM IN Attending Dr: Hong Jewell DO Copies to: DO Hong Rose, ~ HPI DATE OF EXAMINATION: 12/04/21 CHIEF COMPLAINT: weakness, passing out, lightheadedness. HISTORY OF PRESENT ILLNESS: This is a 56-year-old woman who presented to the [facility] emergency room yesterday evening with complaints of [...] supposed to come get established with a service sprinkler helper in [place]. She also was supposed to see a rheumatologistbecause she has probably rheumatoid arthritis and she has had a rash on her back for many decades. She has a fullness in the supraclavicular regions on both right and the left side. She says that the [facility] told her that these were lipomas [...] the age of 17. I gave her [id number] history. In terms of alcohol use she [...] except as mentioned elsewhere in the documentation. [facility] Vaccinated for COVID-19?: No Medical History (Updated [...] % (Auto) 13.0 % (.) 12/04/21 11:47 [place] % (Auto) 13.9 % (.) 12/04/21 11:47 Eos % (Auto) 1.2 % (.) 12/04/21 11:47 Baso % (Auto) 0.4 % (.) 12/04/21 11:47 Neut # (Auto) 4.5 x10E3/uL (1.8-7.7) 12/04/21 11:47 Lymph # (Auto) 0.8 x10E3/uL (1.00-4.8) L 12/04/21 11:47 [place] # (Auto) 0.9 x10E3/uL (0.0-0.8) H 12/04/21 [...] <Electronically signed by Hong Jewell DO> 12/04/212106 [facility] Work Phone: Evaluation note* Diagnosis Onset Date Resolution Status Acute kidney injury acuteAlcohol abuseacuteAnemiaacuteAtrial fibrillationacuteFolic acid deficiency acuteHTN (hypertension)acuteHydronephrosisacuteHypocalcemiaacuteHypokalemiaacute HypomagnesemiaacuteHyponatremiaacuteHypothyroidacuteIron deficiencyacute Macrocytic anemiaacuteModerate protein-calorie malnutritionacuteParoxysmal atrial fibrillation with RVRacuteStress-induced cardiomyopathyacuteType 2 myocardial infarctionacuteUrethral stenosisacuteVasovagal syncopeacute [facility] Work Phone: Evaluation noteNo assessment information available [facility] Work Phone: evaluation note* Diagnosis Onset Date Resolution Status GERD (gastroesophageal reflux disease) acuteHypertensionacuteHypomagnesemiaacuteHypothyroidacuteLupusacuteParoxysmal atrial fibrillation with RVRacuteRheumatoid arthritisacuteStress-induced cardiomyopathyacuteType 2 myocardial infarctionacute [facility] Work Phone: Evaluation note* Diagnosis Onset Date Resolution Status Alcohol abuse acuteGERD (gastroesophageal reflux disease)acuteHypertensionacuteHypomagnesemia acuteHypothyroidacuteLupusacuteParoxysmal atrial fibrillation with RVRacute Rheumatoid arthritisacuteStress-induced cardiomyopathyacuteType 2 myocardial infarctionacuteAlcohol abuseacuteBreast enlargementacuteBreast skin changesacute GERD (gastroesophageal reflux disease)acuteHypertensionacuteHypomagnesemiaacute HypothyroidacuteLupusacuteParoxysmal atrial fibrillation with RVRacuteRheumatoid arthritisacuteStress-induced cardiomyopathyacuteType 2 myocardial infarction acute [facility] Work Phone: Evaluation note* Diagnosis Anxiety [...] History2 HEART ABLASIONS Hospitalization HistorySEE ABOVEHospitalization HistoryDEHYDRATION12/2021 [facility] Other Hospital Discharge instructions Additional Instructions Dietary recommendations: - Magic cup (or equivalent) twice daily [facility] Work Phone: Hospital Discharge instructions Additional Instructions Follow-up with your primary care doctor Return to ED if develop worsening symptoms or concerns [facility]: Hospital Discharge instructionsAmbulatory Orders* Referral to Cardiology Location: None Selected * Referral to Rheumatology Location: None Selected [facility] Work Phone: Hospital Discharge instructionsAmbulatory Orders* Referral to Cardiology Location: None Selected [facility] Work Phone: InstructionsNot on filedocumented in this encounter [facility] SystemInstructionsNot on filedocumented in this encounter [facility] Summary Purpose Family History No Family [...] and content) DATE CREATED AUTHOR 09/29/2017 [facility] DATE CREATED AUTHOR AUTHOR'S ORGANIZ ATION 01/07/2022 [facility] DATE CREATED AUTHOR AUTHOR'S ORGANIZ ATION 06/21/2024 [facility] DATE CREATED AUTHOR AUTHOR'S ORGANIZ ATION 09/11/2024 [facility] DATE CREATED AUTHOR AUTHOR'S ORGANIZ ATION 09/18/2024 [facility] DATE CREATED AUTHOR AUTHOR'S ORGANIZ ATION 10/23/2024 [facility] DATE CREATED AUTHOR AUTHOR'S ORGANIZ ATION 11/02/2024 [facility] DATE CREATED AUTHOR AUTHOR'S ORGANIZ ATION 12/27/2024 [facility] Care Teams (unrecognized sec tion [...] Member Role Status Dates Katie Velasquez APRN PERSONALIZED LIVING ASSISTANT-C Primary Care Provider Active Team Status: Inactive Member Role Status Dates Katie Velasquez APRN PERSONALIZED LIVING ASSISTANT-C Primary Care Provider, Attending Provider Active Start: September 28, 2023 End: September 28, 2023 Team Status: Inactive Member Role Status Dates Katie Velasquez APRN PERSONALIZED LIVING ASSISTANT-C Primary Care Provider, Attending Provider Active Start: December 27, 2023 End: December 27, 2023 Team Status: Inactive Member Role Status Dates Katie Velasquez APRN PERSONALIZED LIVING ASSISTANT-C Primary Care Provider, Attending Provider Active Start: February 19, 2024 End: February 19, 2024 Team Status: Active Member Role Status Dates PHYSICIAN NO FAMILY Primary Care Provider Active Team Status: Active Member Role Status Dates Katie Velasquez APRN PERSONALIZED LIVING ASSISTANT-C Primary Care Provider Active Start: April End: April 28anabell Zamorano DOAttending ProviderActiveStart: April 22, 2024 End: April 28, 2024MADINA Julieneferring ProviderActiveStart: April 22, 2024 End: April 28, 2024 Team Status: Inactive Member Role Status Dates Katie Velasquez APRN PERSONALIZED LIVING ASSISTANT-C Primary Care Provider Active Start: June 12, 2024 End: June 12, 2024Sheryl Santamaria DOAttending ProviderActiveStart: June 12, 2024 End: June 12, 2024 Team Status: Active Member Role Status Dates Katie Velasquez APRN PERSONALIZED LIVING ASSISTANT-C Primary Care Provider, Attending Provider Active Start: June 12, 2024 Team Status: Active Member Role Status Dates PHYSICIAN NO FAMILY Primary Care Provider Active Start: June 13, 2024 Orlando Julien ProviderActiveStart: June 13, 2024 Team MemberRelationshipSpecialtyStart DateEnd Date Katie Velasquez NP [address] [place] [address] PCP - GeneralFamily Mhinhozm36/8/24Team MemberRelationshipSpecialtyStart DateEnd Date Katie Velasquez NP [address] [place] [address] [facility] - [facility] Nahaiywa44/8/24Team MemberRelationshipSpecialtyStart DateEnd Date Katie Velasquez NP [address] [place] [address] PCP - GeneralFami Zgfecwbq56/8/24Team MemberRelationshipSpecialtyStart DateEnd Date Katie Velasquez NP [address] [place] [address] [place] [address] PCP - GeneralFamily Zyjxhxqe53/8/24 Goals (unrecognized section and content) Goals may [...] BE BASED ON THE PRIMARY CLINICAL RECORDS. [facility] [employer] [facility]. provides no warranty or guarantee of the accuracy or completeness of information in this document.
--- NOTE | 2025-02-14 17:00 | DIETREC ---
Recommend 237 mL Ensure Clear BID.
[2025-02-14] MEDS: THIAMINE HCL 200 MG/2 ML VIAL IVP (20:58)
[2025-02-14] MEDS: TRAZODONE HCL 50 MG TABLET 25 MG PO (20:59)
[2025-02-15] VITALS (11 sets, daily range): BP systolic 89–101; BP diastolic 45–67; PULSE 73–95; TEMP 36.5–36.8; O2SAT 97–98
--- NOTE | 2025-02-15 04:33 | PC.NURSE ---
pt smoking cigarettes in her room. RN took the pack of cigarettes and clinical massage therapist and locked them in the machinery cleaner her room.
[2025-02-15] MEDS: LEVOTHYROXINE SODIUM 125 MCG TABLET PO (05:31)
[2025-02-15] MEDS: SODIUM BICARBONATE 325 MG TABLET 650 MG PO (05:31)
[2025-02-15 06:36] LABS: Hematocrit 26.5 % (36.0-48.0); Hemoglobin 9.0 g/dL (12.0-16.0); Mean Corpuscular HGB Conc 34.0 g/dL (29.9-35.2); Mean Corpuscular Hemoglobin 30.9 pg (26.7-34.0); Mean Corpuscular Volume 91.1 fL (81.0-99.0); Platelet Count 185 10^3/uL (150-450); Red Blood Count 2.91 10^6/uL (4.20-5.40); White Blood Count 5.8 10^3/uL (4.0-11.0)
[2025-02-15 06:54] LABS: Anion Gap 16.1; Blood Urea Nitrogen 42.0 mg/dL (7.0-18.0); Carbon Dioxide 19.5 mmol/L (21.0-32.0); Chloride 97 mmol/L (98-107); Estimated GFR (African America 15 (>=60 mL/min/1.73m^2); Estimated GFR (Non-African Ame 12 (>=60 mL/min/1.73m^2); Glucose 116 mg/dL (74-106); Magnesium 1.1 mg/dL (1.8-2.4); Potassium 3.6 mmol/L (3.5-5.1); Sodium 129 mmol/L (136-145)
[2025-02-15 07:28] LABS: Calcium 5.9 mg/dL (8.5-10.1)
--- NOTE | 2025-02-15 08:49 | P.PN_ITS ---
Progress Note: Subjective Subjective Interval history: Patient is feeling better today. Less delusional. She is up by sitting on the edge of the bed eating her breakfast. Denies any chest or abdominal pain. No fever or chills. No cough or congestion Exam Narrative Exam Narrative: [pt is awake and alert. oriented to place and person and location. HEENT: Pale conjunctiva and NL buccal mucosa couple of missing front teeth. Neck: Supple, no tenderness Endocrine: No Thyromegaly. Vascular: No JVD or carotid bruit. Lymphatic: No cervical lymphadenopathy. Chest: CTA no DTP. Heart IRRR, no extra sound or murmur. Abd: Soft, no tenderness, no rebound and no rigidity. Increase abd girth therefore clinically I could not exclude the possibility of intra abd mass or organomegaly. LE: No cyanosis or clubbing, no varices or edema. Neuro: Awake and alert. Less delusional compared to yesterday. She is not focused on her boyfriend and his girlfriend. Able to engage in in a conversation for several minutes without distraction or delusional symptoms []] Constitutional Vital Signs, click to edit/add: Last Vital Signs Temp 98.2 F 02/15/25 03:46 Pulse 73 02/15/25 03:46 Resp 16 02/15/25 03:46 BP 99/67 02/15/25 03:46 Pulse Ox 98 02/15/25 03:46 O2 Del Method Room Air 02/15/25 03:46 Progress Note: Objective Labs Labs: Short CBC 02/15/25 Range/Units 05:51 WBC 5.8 (4.0-11.0) 10^3/uL Hgb 9.0 L (12.0-16.0) g/dL Hct 26.5 L (36.0-48.0) % Plt Count 185 (150-450) 10^3/uL BMP 02/15/25 05:51 Sodium 129 L Potassium 3.6 Chloride 97 L Carbon Dioxide 19.5 L BUN 42.0 H Creatinine 3.79 H Glucose 116 H Calcium 5.9 L* Progress Note: A&P Assessment and Plan (1) Hypothyroidism: (2) Chronic kidney disease: (3) UTI (urinary tract infection): (4) Hypokalemia: (5) Hyponatremia: (6) Delirium due to general medical condition: (7) Hypomagnesemia: (8) Hypophosphatemia: Plan Severe hypokalemia 2.8, hypomagnesemia 0.3, hypocalcemia 6.8 with normal albumin and hypophosphatemia 1.4 Likely triggered by alcohol consumption and poor nutritional state Additional potassium, magnesium, phosphorus and calcium supplementation Alcohol dependency Patient drinks several liquor beverages several days a week Counseling and education Monitor for potential withdrawal syndrome Start the patient on thiamine intravenously as well as folic acid. UTI. More than 100 WBC as well as protein. Requested urine and blood culture. Start the patient on intravenous antibiotic. She is allergic to cephalosporin. Avoid quinolones due to significant electrolyte abnormalities increasing her risk having cardiac dysrhythmia Started patient on intravenous doxycycline pending culture report Stage IV kidney failure Patient has been on dialysis up until a month ago when patient decided not to continue with hemodialysis. She stated that she started dialysis on her own without her covering and lining supervisor Dr. Esposito recommendation. Currently there is no justification for urgent dialysis. Her potassium is on th e low side, mild metabolic acidosis, no significant uremia and no fluid overload. Continue to monitor kidney function and recommend patient to follow-up with nephrology. Dr. Esposito will decide if and when to remove the dialysis catheter in the right upper quadrant of the chest Metabolic acidosis secondary to CKD stage IV. I started the patient on sodium bicarb with a goal to keep her bicarbonate above 22. Hypothyroidism with a TSH at 13. Not sure if patient is taking her Synthroid. She is supposed to be on 100 mcg. Increase up to 125. Repeat TSH in 4 to 6 weeks. Metabolic encephalopathy, delusion, improving Altered mental status, confusion, probable visual hallucination. CT head is negative for acute intracranial process. I suspect that her mental status changes secondary to metabolic encephalopathy caused by multiple metabolic derangement as listed above. Furthermore, I suspect that the patient may have thiamine deficiency causing Warnicke and possible Korsakoff encephalopathy I started patient on thiamine infusion. Monitor her mental status over the next 24 to 48 hours. Consideration for MRI of the brain if there is no resolution. Consider psychiatric evaluation if no resolution of her mental status change after reasonable correction of her metabolic derangement. Anemia, no evidence of acute blood loss. Could be related to CKD Her hemoglobin was 6.9 in August 2024. Patient reported having history of bleeding ulcer before. Currently her hemoglobin is 10.5 and stable. No drop of her hemoglobin. No justification for erythropoietin. Patient will likely require to have anemia workup to be done in the outpatient setting to be handled by PCP in collaboration with other needed outpatient providers. This may include but not limited to EGD, colonoscopy, referral to see hematology and other needed age-appropriate cancer screening. Chronic atrial fibrillation. Rate is controlled. Patient is supposed to be on Coreg 12.5 twice daily. Not sure if she is taking it. Patient is also on Eliquis 2.5 mg. Dose adjusted due to weight less than 60 and creatinine above 1.5 Chronic, subacute medical conditions not listed above, abnormal labs and imaging, incidental findings seen on labs and or imaging. These would need to be addressed. Could be addressed later on or in the outpatient setting by PCP collaboration with other needed outpatient providers when time and condition are appropriate.
[2025-02-15] MEDS: ESCITALOPRAM 10 MG TABLET PO (09:08)
[2025-02-15] MEDS: PANTOPRAZOLE SODIUM 40 MG TABLET.DR PO (09:08)
[2025-02-15] MEDS: APIXABAN 5 MG TABLET 2.5 MG PO (09:08)
[2025-02-15] MEDS: FOLIC ACID 1 MG TABLET PO (09:09)
[2025-02-15] MEDS: ALLOPURINOL 100 MG TABLET PO (09:09)
[2025-02-15] MEDS: THIAMINE HCL 200 MG/2 ML VIAL IVP ×2 (09:09→20:52)
[2025-02-15] MEDS: MAGNESIUM SULFATE IN WATER 2 GM/50 ML PREMIX IV (09:14)
[2025-02-15] MEDS: CALCIUM GLUCONATE 1,000 MG/10 ML VIAL 1000 MG IVP (09:14)
[2025-02-15] MEDS: DOXYCYCLINE HYCLATE 100 MG in 0.9 % SODIUM CHLORIDE 100 ML IV ×2 (10:27→23:00)
[2025-02-15] MEDS: SODIUM BICARBONATE 325 MG TABLET 1300 MG PO ×2 (14:21→21:00)
[2025-02-15] MEDS: CARVEDILOL 12.5 MG TABLET PO (20:50)
[2025-02-15] MEDS: TRAZODONE HCL 50 MG TABLET 25 MG PO (20:51)
[2025-02-15] MEDS: MAGNESIUM SULFATE/D5W 1 GM/100 ML PREMIX IV (20:51)
[2025-02-16] VITALS (18 sets, daily range): BP systolic 94–101; BP diastolic 59–65; PULSE 50–88; TEMP 36.4–36.8; O2SAT 95–97
[2025-02-16] MEDS: LEVOTHYROXINE SODIUM 125 MCG TABLET PO (05:44)
[2025-02-16] MEDS: SODIUM BICARBONATE 325 MG TABLET 1300 MG PO ×3 (05:44→21:00)
[2025-02-16 07:00] LABS: Anion Gap 17.9; Blood Urea Nitrogen 53.0 mg/dL (7.0-18.0); Calcium 6.3 mg/dL (8.5-10.1); Carbon Dioxide 18.4 mmol/L (21.0-32.0); Chloride 100 mmol/L (98-107); Estimated GFR (African America 13 (>=60 mL/min/1.73m^2); Estimated GFR (Non-African Ame 11 (>=60 mL/min/1.73m^2); Glucose 100 mg/dL (74-106); Magnesium 1.5 mg/dL (1.8-2.4); Potassium 4.3 mmol/L (3.5-5.1); Sodium 132 mmol/L (136-145)
[2025-02-16] MEDS: PANTOPRAZOLE SODIUM 40 MG TABLET.DR PO (09:41)
[2025-02-16] MEDS: ESCITALOPRAM 10 MG TABLET PO (09:41)
[2025-02-16] MEDS: CARVEDILOL 12.5 MG TABLET PO (09:41)
[2025-02-16] MEDS: APIXABAN 5 MG TABLET 2.5 MG PO (09:41)
[2025-02-16] MEDS: ALLOPURINOL 100 MG TABLET PO (09:41)
[2025-02-16] MEDS: FOLIC ACID 1 MG TABLET PO (09:41)
[2025-02-16] MEDS: THIAMINE HCL 200 MG/2 ML VIAL IVP ×2 (09:49→20:55)
[2025-02-16] MEDS: CALCIUM GLUCONATE 1,000 MG/10 ML VIAL 1000 MG IVP (10:30)
[2025-02-16] MEDS: MAGNESIUM SULFATE IN WATER 2 GM/50 ML PREMIX IV (10:30)
--- NOTE | 2025-02-16 10:37 | PM.PN ---
Progress Note: Subjective Subjective Interval history: Patient is feeling better today. No longer delusional. She is again up by sitting on the edge of the bed eating her breakfast. Denies any chest or abdominal pain. No fever or chills. No cough or congestion Exam Narrative Exam Narrative: [pt is awake and alert. oriented to place and person and location. HEENT: Pale conjunctiva and NL buccal mucosa couple of missing front teeth. Neck: Supple, no tenderness Endocrine: No Thyromegaly. Vascular: No JVD or carotid bruit. Lymphatic: No cervical lymphadenopathy. Chest: CTA no DTP. Heart IRRR, no extra sound or murmur. Abd: Soft, no tenderness, no rebound and no rigidity. Increase abd girth therefore clinically I could not exclude the possibility of intra abd mass or organomegaly. LE: No cyanosis or clubbing, no varices or edema. Neuro: Awake and alert. Patient is no longer delusional she is not focused on her boyfriend and his girlfriend. Able to engage in in a conversation for several minutes without distraction or delusional symptoms []] Constitutional Vital Signs, click to edit/add: Last Vital Signs Temp 98 F 02/16/25 08:00 Pulse 82 02/16/25 10:00 Resp 15 02/16/25 08:00 BP 101/65 02/16/25 08:00 Pulse Ox 96 02/16/25 08:00 O2 Del Method Room Air 02/16/25 08:00 Progress Note: Objective Labs Labs: [facility] 02/16/25 05:36 Sodium 132 L Potassium 4.3 Chloride 100 Carbon Dioxide 18.4 L BUN 53.0 H Creatinine 4.10 H Glucose 100 Calcium 6.3 L Progress Note: A&P Assessment and Plan (1) Hypothyroidism: (2) Chronic kidney disease: (3) UTI (urinary tract infection): (4) Hypokalemia: (5) Hyponatremia: (6) Delirium due to general medical condition: (7) Hypomagnesemia: (8) Hypophosphatemia: Plan Severe hypokalemia 2.8, hypomagnesemia 0.3, hypocalcemia 6.8 with normal albumin and hypophosphatemia 1.4 Likely triggered by alcohol consumption and poor nutritional state Additional potassium, magnesium, phosphorus and calcium supplementation. Alcohol dependency Patient drinks several liquor beverages several days a week Counseling and education Monitor for potential withdrawal syndrome, thus far there is no evidence of alcohol withdrawal. Start the patient on thiamine intravenously as well as folic acid. UTI. More than 100 WBC as well as protein. Requested urine and blood culture. Start the patient on intravenous antibiotic. She is allergic to cephalosporin. Urine culture is positive for gram-negative organism. Electrolytes have been repleted. Change antibiotic to Levaquin, dose adjusted for kidney failure Stage IV kidney failure Patient has been on dialysis up until a month ago when patient decided not to continue with hemodialysis. She stated that she started dialysis on her own without her fiberglass tube molder Dr. Esposito recommendation. Currently there is no justification for urgent dialysis. Her potassium is on the low side, mild metabolic acidosis, no significant uremia and no fluid overload. I discussed her case with her fiberglass tube molder Dr. Oakley. He is in agreement that there is no justification for hemodialysis resumption at this time. He recommended the patient to have a repeat BMP in 1 week and follow-up with Dr. Esposito. Dr Esposito will decide when a hemodialysis catheter would need to be removed if her kidney function continues to be stable off dialysis Metabolic acidosis secondary to CKD stage IV. I started the patient on sodium bicarb with a goal to keep her bicarbonate above 22. Hypothyroidism with a TSH at 13. Not sure if patient is taking her Synthroid. She is supposed to be on 100 mcg. Increase up to 125. Repeat TSH in 4 to 6 weeks. Metabolic encephalopathy, delusion, resolved Altered mental status, confusion, probable visual hallucination. CT head is negative for acute intracranial process. I suspect that her mental status changes secondary to metabolic encephalopathy caused by multiple metabolic derangement as listed above. Furthermore, I suspect that the patient may have thiamine deficiency causing Warnicke and possible Korsakoff encephalopathy Continue thiamine infusion Monitor her mental status over the next 24 to 48 hours. Consideration for MRI of the brain if there is no resolution. Consider psychiatric evaluation if no resolution of her mental status change after reasonable correction of her metabolic derangement. Anemia, no evidence of acute blood loss. Could be related to CKD Her hemoglobin was 6.9 in August 2024. Patient reported having history of bleeding ulcer before. Currently her hemoglobin is 10.5 and stable. No drop of her hemoglobin. No justification for erythropoietin. Patient will likely require to have anemia workup to be done in the outpatient setting to be handled by PCP in collaboration with other needed outpatient providers. This may include but not limited to EGD, colonoscopy, referral to see hematology and other needed age-appropriate cancer screening. Chronic atrial fibrillation. Rate is controlled. Patient is supposed to be on Coreg 12.5 twice daily. Not sure if she is taking it. Blood pressure is drifting down. Reduce Coreg down to 6.25 twice a day Patient is also on Eliquis 2.5 mg. Dose adjusted due to weight less than 60 and creatinine above 1.5 Chronic, subacute medical conditions not listed above, abnormal labs and imaging, incidental findings seen on labs and or imaging. These would need to be addressed. Could be addressed later on or in the outpatient setting by PCP collaboration with other needed outpatient providers when time and condition are appropriate.
[2025-02-16] MEDS: LEVOFLOXACIN 500 MG TABLET PO (10:47)
[2025-02-16] MEDS: TRAZODONE HCL 50 MG TABLET 25 MG PO (20:55)
[2025-02-16] MEDS: CARVEDILOL 6.25 MG TABLET PO (20:55)
[2025-02-17] VITALS (14 sets, daily range): BP systolic 101–145; BP diastolic 59–84; PULSE 70–97; TEMP 36.4–36.8; O2SAT 95–98
[2025-02-17 05:21] LABS: Hemoglobin 7.8 g/dL (12.0-16.0); Mean Corpuscular HGB Conc 34.2 g/dL (29.9-35.2); Mean Corpuscular Hemoglobin 31.7 pg (26.7-34.0); Mean Corpuscular Volume 92.7 fL (81.0-99.0); Platelet Count 147 10^3/uL (150-450); Red Blood Count 2.46 10^6/uL (4.20-5.40); White Blood Count 6.2 10^3/uL (4.0-11.0)
[2025-02-17 05:41] LABS: Anion Gap 14.0; Blood Urea Nitrogen 62.0 mg/dL (7.0-18.0); Calcium 7.6 mg/dL (8.5-10.1); Carbon Dioxide 20.8 mmol/L (21.0-32.0); Chloride 101 mmol/L (98-107); Estimated GFR (African America 14 (>=60 mL/min/1.73m^2); Estimated GFR (Non-African Ame 11 (>=60 mL/min/1.73m^2); Glucose 103 mg/dL (74-106); Magnesium 1.6 mg/dL (1.8-2.4); Potassium 4.8 mmol/L (3.5-5.1); Sodium 131 mmol/L (136-145)
[2025-02-17 05:57] LABS: Hematocrit 22.8 % (36.0-48.0)
[2025-02-17] MEDS: LEVOTHYROXINE SODIUM 125 MCG TABLET PO (06:02)
[2025-02-17] MEDS: SODIUM BICARBONATE 325 MG TABLET 1300 MG PO ×3 (06:02→21:19)
[2025-02-17] MEDS: 0.9 % SODIUM CHLORIDE 500 ML 250 ML IV (06:39)
[2025-02-17 08:38] LABS: Hematocrit 25.0 % (36.0-48.0); Hemoglobin 8.4 g/dL (12.0-16.0)
--- NOTE | 2025-02-17 09:00 | CM.NOTE ---
Rounds made with Dr. Gustafson, discussed plan of care with pt. No discharge today, discussed am labs and need for continued treatment. Possible discharge to home tomorrow.
[2025-02-17] MEDS: FOLIC ACID 1 MG TABLET PO (09:10)
[2025-02-17] MEDS: ALLOPURINOL 100 MG TABLET PO (09:10)
[2025-02-17] MEDS: CARVEDILOL 6.25 MG TABLET PO ×2 (09:10→21:19)
[2025-02-17] MEDS: LEVOFLOXACIN 500 MG TABLET 250 MG PO (09:11)
[2025-02-17] MEDS: PANTOPRAZOLE SODIUM 40 MG TABLET.DR PO (09:11)
[2025-02-17] MEDS: ESCITALOPRAM 10 MG TABLET PO (09:11)
[2025-02-17] MEDS: THIAMINE HCL 200 MG/2 ML VIAL IVP ×2 (09:12→21:20)
--- NOTE | 2025-02-17 10:05 | SWNOTE1 ---
SW stopped in to see pt. Pt was sitting up in bed and watching television. SW asked pt how she was feeling? Pt voiced she was feeling alright, better than when she first came in. SW asked how her anxiety was? She stated alright at this time. SW asked if she spoke with Forrest? She stated no, but he did call up her to talk to her. SW asked if she gets to go home today? She stated no, one more day here. SW asked if her plan was to return home at discharge? She stated yes of course because it is her house. SW asked if she felt safe? Pt voiced yes and that she was going to install new bolts on the doors. She voiced that Forrest is looking for a new home. She stated they can be cordial to each other and they have never fought. She stated the mosotho lady is just trying to take his money and everyone tells him that, but he does not listen. SW did advise pt that we are going to try to find her a new physician. Pt in agreement. Pt also let SW know she is going to look for the bug in her home/bedroom. Pt is also on good terms with the police in her town and can call them. At this time pt has no discharge concerns and voiced she felt safe to discharge to home once she is stable.
--- NOTE | 2025-02-17 11:14 | PM.PN ---
Progress Note: Subjective Subjective Interval history: Seen and evaluated this morning, she is lying flat in the bed, left lateral decubitus. I did notice a little bit of blood on the guardrail and a blood-filled tissue on the floor, when asked about it she says she was picking at a scab on her leg. She otherwise feels well, she denies any further complaints of nausea or vomiting. She is requesting that I remove the HD catheter from her chest. She is currently alert and oriented by 3, she does not require any reorientation to the question to guide her to the answers, she does have some foresight as I asked what would happen to a rock when you drop in the bucket of water, she was able to tell me the rock with sink. She does confirm that she no longer wishes to have hemodialysis, she is asking why her electrolytes are still low. Did explain to her that she has a severe chronic kidney injury and though she may not need dialysis currently, but it does not mean that her kidneys are functioning properly. All questions were answered. Exam Narrative Exam Narrative: General: Awake alert, no acute distress HEENT: head atraumatic, moist mucous membranes CVS: regular rate and rhythm, no murmurs or gallops Respiratory: clear to auscultation bilaterally, no wheezing or crackles, symmetric expansion GI: soft, nondistended, nontender, positive bowel sounds Extremity: moves all extremities, no restrictions of movements, no calf tenderness, no edema, there are numerous small scabs on her legs in various sizes and stages of healing. No active bleeding on any of them. She says they are from recent shaving of her legs. Neuro: AOx3, Moves all extremities in all planes of motion. Skin: dry, intact no rashes or lesions Constitutional Vital Signs, click to edit/add: Last Vital Signs Temp 98.2 F 02/17/25 08:00 Pulse 96 H 02/17/25 09:59 Resp 18 02/17/25 08:00 BP 145/84 H 02/17/25 08:00 Pulse Ox 98 02/17/25 08:00 O2 Del Method Room Air 02/17/25 08:00 Progress Note: Objective Labs Labs: Short CBC 02/17/25 02/17/25 Range/Units 04:51 08:33 WBC 6.2 (4.0-11.0) 10^3/uL Hgb 7.8 L 8.4 L (12.0-16.0) g/dL Hct 22.8 L* 25.0 L (36.0-48.0) % Plt Count 147 L (150-450) 10^3/uL [facility] 02/17/25 04:51 Sodium 131 L Potassium 4.8 Chloride 101 Carbon Dioxide 20.8 L BUN 62.0 H Creatinine 3.98 H Glucose 103 Calcium 7.6 L Progress Note: A&P Assessment and Plan (1) UTI (urinary tract infection): Assessment and Plan: ? Likely the reasoning for her admitting issues of encephalopathy, she is alert and oriented by 3 this morning. Appears to have resolved with treatment ? Urine culture shows resistance to ciprofloxacin though it is sensitive to levofloxacin but given the resistance to medicine in the same class I will switch her to Keflex starting today. ? Continue to follow clinical status ? Blood cultures pending (2) Delirium due to general medical condition: Assessment and Plan: ? Secondary to UTI, see above ? She may have a degree of Warnicke encephalopathy secondary to chronic alcoholism, continue with folic acid and B12 ? She is not exhibiting any signs or symptoms of alcohol withdrawal/DTs while admitted (3) Hypomagnesemia: Assessment and Plan: ?Continues to be low despite adequate replenishment daily ? Likely secondary to her chronic alcoholism ? She will receive 2 g mag sulfate today, recheck in the morning (4) Hypophosphatemia: Assessment and Plan: ? Continues to be low this morning, replenished with sodium phosphate (5) Hypothyroidism: Assessment and Plan: ? Her TSH on mission was 13 ? Unclear of compliance with home medications, her levothyroxine was increased from 100 to 125 mcg daily on admission ? Recommend repeat TSH in 5 weeks. (6) Chronic kidney disease: Assessment and Plan: Stable, she continues to have tunneled HD cath in her right upper chest wall ? Outpatient nephrology consult upon discharge for discussion of removing it (7) Hypokalemia: Assessment and Plan: ? Resolved, potassium is 4.8 this morning (8) Hyponatremia: Assessment and Plan: Resolved Plan ? DVT prophylaxis addressed ? Regular diet ? Full code Discharge plan pending PT OT evaluations now that her mental status is not preoperative of this and her electrolyte abnormalities
--- NOTE | 2025-02-17 12:00 | CM.NOTE ---
PT recommending home health on discharge and also a wheeled walker. The patient states she had one in the past but she does not know where it currently is. AYUSH notified along with Dr Gustafson via tiger text.
[2025-02-17] MEDS: SOD PHOSPHATE,MONOBASIC-DIBAS 30 MMOL in 0.9 % SODIUM CHLORIDE 250 ML 43.333 MMOL IV (12:32)
--- NOTE | 2025-02-17 12:40 | SWNOTE1 ---
PT did recommend wheeled walker and home health services. Pt has [employer] and has limited options with home health and she does not have a PCP, which home health does not accept without a PCP. SW did reach out to [facility] first to see if they take [employer]. They returned SW email and stated it is case by case and will review. SW to send referral. SW also advised she does not have a PCP. [facility] does have a physician group that follows home health pt's without PCP only while they have home health services. SW also reached out to [facility] since they have a physician group, but they do not take her insurance. Pt will also need a wheeled walker. SW to speak with pt about wheeled walker and home health.
--- NOTE | 2025-02-17 12:46 | SWNOTE1 ---
SW did send referral to [facility] to have them run benefits and see if they can accept. Referral included physician notes and PT/OT.
--- NOTE | 2025-02-17 13:04 | SWNOTE1 ---
AYUSH spoke to pt about home health services coming in. SW explained it would be a nurse and some physical therapy. Pt voiced she does not feel like she needs it and if she is sick, she will just come here. AYUSH explained to pt that the benefit of home health is for a nurse to come to the home and assist with any resources or medication issues that come up to prevent a patient from returning to hospital. Pt then stated, well they are not going to help me cook or clean. SW did tell her that they will not, but they will assist with any medical issues that arise and therapy will assist with getting her stronger. Pt again stated she does not feel like she needs it at this time. AYUSH then asked her about a wheeled walker at home. Pt stated she had one at [facility] that [facility] brought in, but left it there. SW to find out if they have it at [place], if not SW to attempt to get her a new one. AYUSH then asked her about her code status. SW let her know that she is a full code right now. AYUSH explained full code, DNRCCA, and DNRCC. Pt was aware that she signed a DNRCCA earlier this year and she does not want that. She wants everything done and wants to be a full code. AYUSH let case management and the nurse know.
[2025-02-17] MEDS: MAGNESIUM SULFATE IN WATER 2 GM/50 ML PREMIX IV (13:32)
--- NOTE | 2025-02-17 13:45 | SWNOTE1 ---
SW received a message back from Anitha at [place] in regards to walker. She checked with the physical therapy team and pt used one of [facility] walkers while she was there.
--- NOTE | 2025-02-17 14:02 | CM.NOTE ---
DME completed for wheeled walker. Dr. Gustafson signed and completed note. SW will fax information.
--- NOTE | 2025-02-17 14:11 | SWNOTE1 ---
SW did stop back in room to speak with pt about counseling services. SW did offer to set pt up with a counselor in the area to assist with her anxiety and personal issues that she is dealing with. Pt voiced that she just wants to be left alone. SW asked if she had someone that she trusts she can talk to about various things going on in her life. She stated she has friends and her daughter as her support. At this time pt does not want a list of counselors. SW advise pt to reach out to SW if she changes her mind. Pt voiced understanding.
--- NOTE | 2025-02-17 14:28 | SWNOTE1 ---
Referral has been sent to [facility] to try and get pt a wheeled walker. SW faxed face sheet, script, H&P, and physician note from today to [facility].
[2025-02-17 14:40] LABS: Iron 56.0 ug/dL (50.0-170.0); Percent Iron Saturation 38.1 %; Total Iron Binding Capacity 147.0 ug/dL (250.0-450.0)
--- NOTE | 2025-02-17 15:21 | SWNOTE1 ---
AYUSH called Dr. Kaiser's office and spoke to Rick. Rick took down pt's information and will reach out to Dr. Kaiser to see if she can accept as a new patient.
--- NOTE | 2025-02-17 15:35 | SWNOTE1 ---
SW spoke with Dr. Kaiser directly via phone and she did have to decline this patient. Pt has history of non-compliance.
[2025-02-17] MEDS: HYDROXYZINE HCL 25 MG TABLET PO (16:46)
[2025-02-17] MEDS: TRAZODONE HCL 50 MG TABLET 25 MG PO (21:19)
[2025-02-17] MEDS: AMOXICILLIN/POT CLAV 875-125 MG TABLET 1 TAB PO (21:19)
[2025-02-18] VITALS (21 sets, daily range): BP systolic 117–148; BP diastolic 73–89; PULSE 76–104; TEMP 36.3–36.9; O2SAT 95–97
[2025-02-18] MEDS: LEVOTHYROXINE SODIUM 125 MCG TABLET PO (05:37)
[2025-02-18] MEDS: SODIUM BICARBONATE 325 MG TABLET 1300 MG PO ×3 (05:37→20:50)
[2025-02-18 05:42] LABS: Hemoglobin 7.6 g/dL (12.0-16.0); Mean Corpuscular HGB Conc 33.2 g/dL (29.9-35.2); Mean Corpuscular Hemoglobin 30.9 pg (26.7-34.0); Mean Corpuscular Volume 93.1 fL (81.0-99.0); Platelet Count 170 10^3/uL (150-450); Red Blood Count 2.46 10^6/uL (4.20-5.40); White Blood Count 5.0 10^3/uL (4.0-11.0)
[2025-02-18 06:04] LABS: Anion Gap 14.7; Blood Urea Nitrogen 65.0 mg/dL (7.0-18.0); Calcium 8.3 mg/dL (8.5-10.1); Carbon Dioxide 21.3 mmol/L (21.0-32.0); Chloride 103 mmol/L (98-107); Estimated GFR (African America 13 (>=60 mL/min/1.73m^2); Estimated GFR (Non-African Ame 11 (>=60 mL/min/1.73m^2); Glucose 120 mg/dL (74-106); Magnesium 1.9 mg/dL (1.8-2.4); Potassium 5.0 mmol/L (3.5-5.1); Sodium 134 mmol/L (136-145)
[2025-02-18 06:17] LABS: Hematocrit 22.9 % (36.0-48.0)
[2025-02-18 07:10] LABS: Transferrin 133 mg/dL (192-364)
--- NOTE | 2025-02-18 09:00 | CM.NOTE ---
Rounds made with Dr. Gustafson, discussed plan of care and lab findings with pt. Dr. Gustafson discussed occult positive results and risk of restarting Eliquis. Talked with pt regarding transfer to [facility] for scope, pt refuses procedure at this time. Dr. Gustafson discussed risks of not having scope. Pt verbalizes understanding but refuses procedure at this time.
--- NOTE | 2025-02-18 09:02 | SWNOTE1 ---
[facility] did reach out and let SW know that if pt is interested in home health, they can accept.
[2025-02-18] MEDS: AMOXICILLIN/POT CLAV 875-125 MG TABLET 1 TAB PO ×2 (09:53→20:50)
[2025-02-18] MEDS: ALLOPURINOL 100 MG TABLET PO (09:53)
[2025-02-18] MEDS: FOLIC ACID 1 MG TABLET PO (09:54)
[2025-02-18] MEDS: ESCITALOPRAM 10 MG TABLET PO (09:54)
[2025-02-18] MEDS: CARVEDILOL 6.25 MG TABLET PO ×2 (09:54→20:50)
[2025-02-18] MEDS: THIAMINE HCL 200 MG/2 ML VIAL IVP (09:54)
[2025-02-18] MEDS: PANTOPRAZOLE SODIUM 40 MG TABLET.DR PO (09:54)
[2025-02-18] MEDS: HYDROXYZINE HCL 25 MG TABLET PO ×2 (09:56→20:50)
--- NOTE | 2025-02-18 11:15 | PM.PN ---
Progress Note: Subjective Subjective Interval history: Seen and evaluated this morning, she is currently lying left lateral decubitus. She endorses feeling better, I was paged yesterday evening for concerns for panic attack as she was feeling very panicky, her vitals are stable. She was given hydroxyzine 25 mg and this helped her significantly. She is no longer feeling panicky at all as of today. I did discuss her positive FOBT with her this morning, she endorses a history of hemorrhoids. I did ask if she would be interested in a gastroenterology workup including EGD or colonoscopy, at this point hide the patient is refusing evaluation, I discussed this would require transfer to another hospital, she is refusing this. I did tell her my concerns of resuming her Eliquis in the setting of positive FOBT with her level of anemia. Her anemia is very near her baseline for the past 2 years though it has trended down significantly this admission as she was 10.5 on arrival. I did explain the risks of resuming Eliquis with an undiagnosed bleed would include worsened bleeding however the risks of being off Eliquis include stroke. She states she does not want to have the other 1 but she says I am very confident I am not bleeding , I I offered to start heparin today and if there is no evidence of further bleeding, we will plan to transition to Eliquis tomorrow. She is agreeable for this, I did ask again to confirm that she does not want any evaluation from her sql database programmer and she confirmed that she does not want any procedure requiring a scope at this point in time. Exam Narrative Exam Narrative: General: Awake alert, no acute distress HEENT: head atraumatic, moist mucous membranes CVS: regular rate and rhythm, no murmurs or gallops Respiratory: clear to auscultation bilaterally, no wheezing or crackles, symmetric expansion Chest: HD port in her right chest wall, dressing is CDI. No surrounding erythema. GI: soft, nondistended, nontender, positive bowel sounds Extremity: moves all extremities, no restrictions of movements, no calf tenderness, no edema, there are numerous small scabs on her legs in various sizes and stages of healing. No active bleeding on any of them. She says they are from recent shaving of her legs. Neuro: AOx3, Moves all extremities in all planes of motion. Skin: dry, intact no rashes or lesions Constitutional Vital Signs, click to edit/add: Last Vital Signs Temp 98.3 F 02/18/25 07:50 Pulse 104 H 02/18/25 10:00 Resp 18 02/18/25 07:50 BP 148/80 H 02/18/25 07:50 Pulse Ox 97 02/18/25 07:50 O2 Del Method Room Air 02/18/25 07:50 Progress Note: Objective Labs Labs: Short CBC 02/18/25 Range/Units 04:52 WBC 5.0 (4.0-11.0) 10^3/uL Hgb 7.6 L (12.0-16.0) g/dL Hct 22.9 L* (36.0-48.0) % Plt Count 170 (150-450) 10^3/uL BMP 02/18/25 04:52 Sodium 134 L Potassium 5.0 Chloride 103 Carbon Dioxide 21.3 BUN 65.0 H Creatinine 4.12 H Glucose 120 H Calcium 8.3 L Progress Note: A&P Assessment and Plan (1) UTI (urinary tract infection): Assessment and Plan: ? Likely the reasoning for her admitting issues of encephalopathy, she is alert and oriented by 3 this morning. Appears to have resolved with treatment ? Antibiotics switched to amoxicillin yesterday evening for 2 more days ? Continue to follow clinical status ? Blood cultures, preliminary remains negative (2) Delirium due to general medical condition: Assessment and Plan: ? Secondary to above ? Resolved ? Continue folic acid and B12 (3) Hypomagnesemia: Assessment and Plan: Continue to trend, replenish as necessary (4) Hypophosphatemia: Assessment and Plan: Will repeat tomorrow morning (5) Hypothyroidism: Assessment and Plan: Continue levothyroxine at 125 mcg daily ? Repeat TSH in 5 weeks (6) Chronic kidney disease: Assessment and Plan: Stable, outpatient nephrology follow-up to discuss removing her HD cath (7) Hypokalemia: Assessment and Plan: Resolved (8) Hyponatremia: Assessment and Plan: Resolved (9) Atrial fibrillation: Assessment and Plan: Chronic atrial fibrillation ? Continue to hold her home dose of Eliquis, it was addended the note yesterday continue home Eliquis meant to say hold ? Iron studies consistent with anemia of chronic disease Qualifiers: Atrial fibrillation type: longstanding persistent Qualified Code(s): I48.11 - Longstanding persistent atrial fibrillation (10) Anemia: Assessment and Plan: ? FOBT positive this morning ? She is actually very close to her baseline for the last 2 years however she was 10.5 on admission and has trended down. Likely a sequela of dehydration/dilution throughout the hospitalization ? She is refusing evaluation by GI for any signs of GI bleeding, see subjective portion of this note ? Will initiate heparin low intensity today, if hemoglobin remains stable and no signs of bleeding we will plan to resume Eliquis tomorrow in preparation for discharge. Plan ? DVT prophylaxis addressed ? Regular diet ? Full code
[2025-02-18 11:22] LABS: Partial Thromboplastin Time 37.9 sec (22.3-36.2)
--- NOTE | 2025-02-18 11:22 | REH.PTDLY ---
Physical Therapy Daily Note PT Daily Note/Assess Start: 02/17/25 11:49 Freq: Status: Active Protocol: Document 02/18/25 11:20 ZULY (Rec: 02/18/25 11:22 ZULY [id number]) Visit Not Completed Visit Not Completed Pt refusing Due to: Other Reason Visit Pt declines participating in therapy at this time, Not Completed tried to encourage patient and offered to come back in an hour and pt states she will be sleeping and won't want to do it at that time either. Physical Therapy Daily Note/Assessment Time In 10:36 Time Out 10:38
--- NOTE | 2025-02-18 11:44 | SWNOTE1 ---
AYUSH stopped in to speak with pt. Pt laying down in bed. AYUSH spoke to pt about home health services again. AYUSH did encourage pt to really consider having home health nurse and PT come in for a short time to assist with transition home. Pt again asked what they would do? AYUSH explained to pt that a nurse would just come in to assist with medication adn check vitals and make sure she is feeling well. Physical therapy would come in and assess safety in the home for ADL's and IADLS's. Pt stated again that she does not feel like she needs it. SW also let her know that this [facility] also has a physician group that would follow her since she does not have a PCP. Pt again voiced she does not want it. SW encouraged her to think about it. SW also let her know that SW is still looking for a PCP for pt. Pt in agreement with any PCP. AYUSH also asked her if she would like a walker still. SW did express that her home is small. She uses a wheelchair to hold on to when she is walking and out and about. She would like AYUSH to try and get her a walker. AYUSH to call [facility] as referral was sent yesterday for walker.
[2025-02-18] MEDS: HEPARIN SODIUM,PORCINE/D5W 25,000 UNIT/500 ML IV.SOLN 14 UNIT IV (12:08)
--- NOTE | 2025-02-18 12:28 | REH.PTDLY ---
Physical Therapy Daily Note PT Daily Note/Assess Start: 02/17/25 11:49 Freq: Status: Active Protocol: Document 02/18/25 12:00 KSTEINLE (Rec: 02/18/25 12:28 KSTEINLE No Response) Visit Not Completed Other Reason Visit Pt awake in bed and continues to decline PT. States she Not Completed 's getting up and walking around just fine on her own. It's just sore to do so. Physical Therapy Daily Note/Assessment Time In 11:58 Time Out 12:00
--- NOTE | 2025-02-18 13:48 | SWNOTE1 ---
AYUSH called and spoke with Gracie at [facility] and she has submitted for the walker, but has not heard back from pt's insurance. AYUSH advised pt is not leaving today. Gracie will call once she hears back from the insurance.
--- NOTE | 2025-02-18 14:06 | SWNOTE1 ---
SW spoke with pt about filling out application online for [facility] in [place], pt is agreeable and he is fine with SW completing it. SW had a few questions for pt and needed pt's income, date of for Dada, and her email. Pt provided to social work supervisor. Application complete. SW to follow up tomorrow to see if pt received a call, if not SW to call [facility] in [place].
--- NOTE | 2025-02-18 16:00 | OT.DAILY ---
Occupational Therapy Daily Note OT Inpatient Daily Visit Note Start: 02/17/25 13:04 Freq: Status: Active Protocol: Document 02/18/25 15:52 [id number] (Rec: 02/18/25 16:00 [id number]) OT Visit Details Time In/Time Out Time In 15:37 Time Out 15:50 OT Treatment Plan Subjective Subjective Pt lying in bed sleeping, states I am feeling tired . Objective Objective Pt agreeable to self-care at this time. Completed sit- to-stand from EOB to walker with SBA, able to maintain YUVAL with walker. Good use of grab bars with with toileting, no LOB from [id number] from standard toilet. Successful voiding and anjel-care. Pt agreeable to complete hair hygiene at sink, standing tolerance 3- 5min while washing. Ambulatory back to bed for additional grooming of hair. No SOB or wheezing with functional mobility. Assessment Assessment Pt requires encouragement to participate, responds well to motivation. Talkative with a normal thought process . Plan Plan Continue OT POC. Short Term Goals STG 1 Patient will be able to ambulate to the bathroom using least restrictive device and complete grooming, toileting I with good safety. STG 2 Patient will be able to complete UB/LB dressing I with good safety.
[2025-02-18 17:17] LABS: PTT Heparin Monitor 45.6 sec (43.5-61.5)
[2025-02-18] MEDS: TRAZODONE HCL 50 MG TABLET 25 MG PO (20:51)
[2025-02-18] MEDS: TIZANIDINE HCL 4 MG TABLET 2 MG PO (20:51)
[2025-02-18 23:06] LABS: PTT Heparin Monitor 45.9 sec (43.5-61.5)
[2025-02-19] VITALS (23 sets, daily range): BP systolic 122–147; BP diastolic 75–88; PULSE 81–107; TEMP 36.4–36.8; O2SAT 93–94; BMI 22.3
[2025-02-19 05:50] LABS: Mean Corpuscular HGB Conc 32.4 g/dL (29.9-35.2); Mean Corpuscular Hemoglobin 30.5 pg (26.7-34.0); Mean Corpuscular Volume 94.2 fL (81.0-99.0); Platelet Count 175 10^3/uL (150-450); Red Blood Count 2.26 10^6/uL (4.20-5.40); White Blood Count 5.5 10^3/uL (4.0-11.0)
[2025-02-19] MEDS: LEVOTHYROXINE SODIUM 125 MCG TABLET PO (05:50)
[2025-02-19] MEDS: SODIUM BICARBONATE 325 MG TABLET 1300 MG PO ×3 (05:50→21:20)
[2025-02-19 06:21] LABS: Anion Gap 14.2; Blood Urea Nitrogen 75.0 mg/dL (7.0-18.0); Calcium 8.9 mg/dL (8.5-10.1); Carbon Dioxide 22.6 mmol/L (21.0-32.0); Chloride 103 mmol/L (98-107); Estimated GFR (African America 13 (>=60 mL/min/1.73m^2); Estimated GFR (Non-African Ame 11 (>=60 mL/min/1.73m^2); Glucose 105 mg/dL (74-106); Magnesium 1.5 mg/dL (1.8-2.4); Potassium 5.8 mmol/L (3.5-5.1); Sodium 134 mmol/L (136-145)
[2025-02-19 06:28] LABS: Hematocrit 21.3 % (36.0-48.0); Hemoglobin 6.9 g/dL (12.0-16.0)
[2025-02-19] MEDS: FOLIC ACID 1 MG TABLET PO (08:00)
[2025-02-19] MEDS: CARVEDILOL 6.25 MG TABLET PO ×2 (08:00→21:20)
[2025-02-19] MEDS: PANTOPRAZOLE SODIUM 40 MG TABLET.DR PO (08:00)
[2025-02-19] MEDS: THIAMINE MONONITRATE (VIT B1) 100 MG TABLET 200 MG PO (08:00)
[2025-02-19] MEDS: AMOXICILLIN/POT CLAV 875-125 MG TABLET 1 TAB PO ×2 (08:00→21:19)
[2025-02-19] MEDS: ESCITALOPRAM 10 MG TABLET PO (08:00)
[2025-02-19] MEDS: ALLOPURINOL 100 MG TABLET PO (08:00)
[2025-02-19] MEDS: 0.9 % SODIUM CHLORIDE 250 ML 10 ML IV (09:13)
--- NOTE | 2025-02-19 09:53 | OT.DAILY ---
Occupational Therapy Daily Note OT Inpatient Daily Visit Note Start: 02/17/25 13:04 Freq: Status: Active Protocol: Document 02/19/25 09:52 [id number] (Rec: 02/19/25 09:53 [id number]) Visit Not Completed Visit Not Completed Visit Not Completed Nursing request to hold Due to: Other Reason Visit Pt receiving blood at this time, unable to participate. Not Completed Will attempt at a later time/date. OT Visit Details Time In/Time Out Time In 09:50 Time Out 09:51 GG. Functional Abilities and Goals-Complete for Swing Bed Patients Only [id number]. Self-Care [id number]. Mobility
[2025-02-19 11:08] LABS: Vitamin B1 (Thiamine), Blood 72.7 nmol/L (66.5-200.0)
[2025-02-19] MEDS: SODIUM ZIRCONIUM CYCLOSILICATE 10 GM POWD.PACK PO (11:42)
[2025-02-19] MEDS: MAGNESIUM SULFATE IN WATER 4 GM/100 ML PIGGYBACK IV (11:42)
--- NOTE | 2025-02-19 12:43 | CA_ITS ---
Patient Name: ORESTES LOPEZ MR#: [id number] : 1965 Exam Date: 02/19/2025 Ordering Doctor: HENRY LOMAX ECHOCARDIOGRAM REPORT PROCEDURE: CA ECHO DOPPLER COMPLETE INDICATIONS: Pulmonary HTN, congestive heart failure, COPD COMPARISON: None. DESCRIPTION: COMPLETE ECHOCARDIOGRAM Real-time transthoracic echocardiography with 2D, M-mode, spectral and color flow Doppler performed. QUALITY: Technical quality was good. LEFT VENTRICLE: Normal chamber size. Mild concentric left ventricular hypertrophy. LV EF: Global left ventricular systolic function is hyperdynamic; visually estimated ejection fraction is 65 to 70%. No wall motion abnormalities. DIASTOLIC: Unable to assess diastolic function. ATRIAL SEPTUM: Inadequately seen. LEFT ATRIUM: Moderate dilatation. RIGHT ATRIUM: Severe dilatation. RIGHT VENTRICLE: Normal chamber size. Systolic function appears reduced. TRICUSPID VALVE: Normal mobility and thickness. Moderate regurgitation. Doppler studies reveal severely (>60) elevated right sided pressures. RVSP 68 mmHg MITRAL VALVE: Normal mobility and thickness. No evidence of mitral valve stenosis. Mild mitral annular calcification. Trivial mitral regurgitation. AORTIC VALVE: Normal trileaflet appearance. No visible sclerosis. Normal leaflet mobility. No evidence of aortic valve stenosis. No aortic regurgitation. AORTIC ROOT: Normal diameter and appearance. PULMONIC VALVE: Normal thickness and mobility. No stenosis. Trivial regurgitation. PERICARDIUM: Anterior free space; trivial effusion versus fat pad. IVC: Not well visualized. CONCLUSION: 1. Global left ventricular systolic function is hyperdynamic; visually estimated ejection fraction is 65 to 70% 2. The right ventricle is normal in size with reduced systolic function 3. Mildly increased left ventricular wall thickness 4. Biatrial dilatation 5. Moderate tricuspid regurgitation 6. Severely elevated right ventricular systolic pressure; RVSP 68 mmHg 7. Anterior free space; trivial effusion versus fat pad Adult Echocardiography Procedure Report Left Ventricle LVEDD (3.7 - 5.6 cm): 3.79 cm LVESD (2.2 - 4.0 cm): 2.57 cm LVIVS thickness (0.6 - 1.2 cm): 1.34 cm LVPW thickness (0.5 - 1.0 cm): 1.13 cm LVOT Max Gradient: 1.71 mm[Hg] LVOT Area (cm2): 0.65 m/s Peak Velocity (LVOT): 0.65 m/s Mean Velocity (LVOT): 0.46 m/s LVOT Diameter 2.01 cm Left Atrium LA Volume Index (2D A2C): 47.44 ml/m2 Left Atrium Systolic Dimension: 5.27 cm Mitral Valve MV E to A Ratio: 5.17 Mitral Valve A-Wave Peak Velocity: 0.18 m/s Mitral Valve E-Wave Peak Velocity: 0.92 m/s Right Ventricle Aorta AO Root Diam: 3.32 cm Aortic Valve AoV Area (Peak Nuno): 2.07 cm2, 2.07 cm2 AoV Area (VTI): 2.28 cm2, 2.28 cm2 Peak Velocity(Antegrade Flow): 1.00 m/s Peak Gradient(Antegrade Flow): 4.02 mm[Hg] Mean Velocity(Antegrade Flow): 0.68 m/s Mean Gradient(Antegrade Flow): 2.07 mm[Hg] Velocity Time Integral: 18.91 cm Tricuspid Valve Peak Velocity (Regurgitant Flow): 3.59 m/s, 3.48 m/s, 3.57 m/s, 3.63 m/s Pulmonic Valve Mean Gradient: 1.72 mm[Hg], 1.84 mm[Hg] Mean Velocity: 0.61 m/s, 0.62 m/s Peak Gradient: 3.54 mm[Hg], 4.37 mm[Hg] Right Atrium Right Atrium Systolic Pressure: 83.02 ml, 83.02 ml Dictated by: Marcelle Camacho M.D. on 02/19/2025 at 15:50 Approved by: Marcelle Camacho M.D. on 02/19/2025 at 15:55
--- NOTE | 2025-02-19 13:03 | CM.NOTE ---
Rounds made with Dr. Gustafson, discussed plan of care with pt. Pt agreeable to transfer to [facility] for Nephrology and GI services. Dr. Gustafson will reach out to GI and Nephrology for possible admission to [facility].
--- NOTE | 2025-02-19 13:46 | P.PN_ITS ---
Progress Note: Subjective Subjective Interval history: Seen and evaluated this morning, I was notified by the shift supervisor melting RN this morning that the patient had a critical hemoglobin and the shift supervisor melting coverage ordered 1 unit PRBC. Instructed her to hold the heparin, discontinue entirely. Patient this morning says she is feeling more tired, I discussed her kidney labs with her in regards to worsening kidney function as well as her anemia and likely need for evaluation of GI bleed given her history of duodenitis. She was extremely apprehensive to agree for a transfer for GI workup including EGD and colonoscopy. She did however agree to this, I also told her she that despite not requiring dialysis for the last couple of months that since she has been here with electrolyte replenishment her kidney function has continued to decline and this morning she was hyperkalemic which is a sign of worsening kidney function as well. She was also apprehensive to agree for further dialysis if needed. Ultimately she did agree for transfer to [facility] if her medical care necessitates this. Exam Narrative Exam Narrative: General: Awake alert, no acute distress HEENT: head atraumatic, moist mucous membranes CVS: regular rate and rhythm, no murmurs or gallops Respiratory: clear to auscultation bilaterally, no wheezing or crackles, symmetric expansion Chest: HD port in her right chest wall, dressing is CDI. No surrounding erythema. GI: soft, nondistended, nontender, positive bowel sounds Extremity: moves all extremities, no restrictions of movements, no calf tenderness, no edema, there are numerous small scabs on her legs in various sizes and stages of healing. No active bleeding on any of them. She says they are from recent shaving of her legs. Neuro: AOx3, Moves all extremities in all planes of motion. Skin: dry, intact no rashes or lesions Constitutional Vital Signs, click to edit/add: Last Vital Signs Temp 98.2 F 02/19/25 12:39 Pulse 98 H 02/19/25 12:39 Resp 20 02/19/25 12:39 BP 122/80 02/19/25 12:39 Pulse Ox 93 L 02/19/25 07:05 O2 Del Method Room Air 02/19/25 07:05 Progress Note: Objective Labs Labs: Short CBC 02/19/25 Range/Units 05:11 WBC 5.5 (4.0-11.0) 10^3/uL Hgb 6.9 L* (12.0-16.0) g/dL Hct 21.3 L* (36.0-48.0) % Plt Count 175 (150-450) 10^3/uL [facility] 02/19/25 05:11 Sodium 134 L Potassium 5.8 H Chloride 103 Carbon Dioxide 22.6 BUN 75.0 H Creatinine 4.17 H Glucose 105 Calcium 8.9 Progress Note: A&P Assessment and Plan (1) UTI (urinary tract infection): Assessment and Plan: ? Resolved, continue Augmentin for 1 more day ? Mental status continues to be improved and at baseline (2) Delirium due to general medical condition: Assessment and Plan: Secondary to above (3) Hypomagnesemia: Assessment and Plan: Replenish and trend as necessary (4) Hypophosphatemia: Assessment and Plan: Replenish and trend as necessary (5) Hypothyroidism: Assessment and Plan: Continue current dose levothyroxine (6) Chronic kidney disease: Assessment and Plan: ? Her kidney function has continued to decline since admission ? Will discontinue sodium bicarbonate tabs ? Will give a dose of IV Lasix 80 mg given her creatinine is 4.17 ?Did discuss the case with on-call nephrology at [facility] today, she at this time may be heading back towards requiring dialysis. ? She has a history of severe pulmonary hypertension in the clinic [facility] rubio from [facility] in June of this year, I do not know the RVSP. I did not see his records myself however the on-call tool and die assembler and [facility] had access to them and told me about it. ? Will repeat echocardiogram here to assess her pulmonary hypertension/RVSP ? If her RVSP is elevated and she continues to have moderate to severe or worse pulmonary hypertension, she will be unable to have any procedures under anesthesia at [facility] and the next step may be transferring to a tertiary care center where they have access to inhaled nitric oxide for her pulmonary hypertension during anesthesia. (7) Hypokalemia: Assessment and Plan: She was actually hyperkalemic today ? 10 g Lokelma ordered. (8) Hyponatremia: (9) Atrial fibrillation: Assessment and Plan: Chronic ? She had a worsening anemia after starting heparin last evening however no overt signs of bleeding. ? FOBT positive yesterday ? I did discuss the case with Dr. Kingsley, on-call tool and die assembler [facility] who logged in and reviewed her medical record as well, given there has been no evidence of overt bleeding he recommended against transfer for inpatient EGD and colonoscopy at this point time. ? She recommended continuing to hold Eliquis. Qualifiers: Atrial fibrillation type: longstanding persistent Qualified Code(s): I48.11 - Longstanding persistent atrial fibrillation (10) Anemia: Assessment and Plan: ? Her iron workup is consistent with anemia of chronic disease likely secondary to her CKD ? No evidence of overt bleeding Plan ? DVT prophylaxis addressed with SCDs ? Regular diet ? Full code
--- NOTE | 2025-02-19 14:34 | PT.DAILY ---
Physical Therapy Daily Note PT Daily Note/Assess Start: 02/17/25 11:49 Freq: Status: Active Protocol: Document 02/19/25 14:20 [email or web address] (Rec: 02/19/25 14:34 [email or web address] [id number]) Visit Not Completed Visit Not Completed Visit Not Completed Pt refusing Due to: Other Reason Visit Patient declines to ambulate in halls this pm. States Not Completed she is getting up and around in room just fine, nursing is present in room and agrees with this. Patient states she is just tired and wants to rest. Nursing is hoping that the blood she received this morning will perk her up a little this afternoon. Patient states the plan is also for her to transfer to [facility] for additional testing. Physical Therapy Daily Note/Assessment Time In/Time Out Time In 12:20 Time Out 12:25 GG. Functional Abilities and Goals-Complete for Swing Bed Patients Only [id number]. Self-Care [id number]. Mobility
--- NOTE | 2025-02-19 15:57 | SWNOTE1 ---
SW called [facility] in regards to walker for pt, no answer, SW left message.
--- NOTE | 2025-02-19 16:00 | SWNOTE1 ---
SW called [facility] to check if they received pt application and could accept, no answer had to leave message.
[2025-02-19 17:15] LABS: Anion Gap 11.7; Calcium 8.8 mg/dL (8.5-10.1); Carbon Dioxide 23.6 mmol/L (21.0-32.0); Chloride 103 mmol/L (98-107); Estimated GFR (African America 13 (>=60 mL/min/1.73m^2); Estimated GFR (Non-African Ame 11 (>=60 mL/min/1.73m^2); Glucose 101 mg/dL (74-106); Potassium 5.3 mmol/L (3.5-5.1); Sodium 133 mmol/L (136-145)
[2025-02-19 17:19] LABS: Blood Urea Nitrogen 78.0 mg/dL (7.0-18.0)
--- NOTE | 2025-02-19 17:55 | DIETREC ---
Recommend Renal diet d/t abnormal labs indicating worsening kidney function.
--- NOTE | 2025-02-19 19:53 | DIETREC ---
Recommend discontinue nutritional supplement, 237 mL Ensure Clear BID, d/t pt dislike and refusal.
[2025-02-19] MEDS: TRAZODONE HCL 50 MG TABLET 25 MG PO (21:18)
[2025-02-20] VITALS: BP 129/77; PULSE 90; TEMP 36.6; O2SAT 92
[2025-02-20 01:44] VITALS: PULSE 109
[2025-02-20 04:00] VITALS: BP 147/80; PULSE 90; TEMP 36.7; O2SAT 96
[2025-02-20 05:21] LABS: Hematocrit 25.3 % (36.0-48.0); Hemoglobin 8.4 g/dL (12.0-16.0); Mean Corpuscular HGB Conc 33.2 g/dL (29.9-35.2); Mean Corpuscular Hemoglobin 30.9 pg (26.7-34.0); Mean Corpuscular Volume 93.0 fL (81.0-99.0); Platelet Count 193 10^3/uL (150-450); Red Blood Count 2.72 10^6/uL (4.20-5.40); White Blood Count 5.9 10^3/uL (4.0-11.0)
[2025-02-20 05:34] LABS: Anion Gap 15.5; Calcium 9.3 mg/dL (8.5-10.1); Carbon Dioxide 22.6 mmol/L (21.0-32.0); Chloride 103 mmol/L (98-107); Estimated GFR (African America 13 (>=60 mL/min/1.73m^2); Estimated GFR (Non-African Ame 11 (>=60 mL/min/1.73m^2); Glucose 145 mg/dL (74-106); Magnesium 2.1 mg/dL (1.8-2.4); Potassium 5.1 mmol/L (3.5-5.1); Sodium 136 mmol/L (136-145)
[2025-02-20 05:38] LABS: Blood Urea Nitrogen 77.0 mg/dL (7.0-18.0)
[2025-02-20] MEDS: SODIUM BICARBONATE 325 MG TABLET 1300 MG PO (05:53)
[2025-02-20] MEDS: LEVOTHYROXINE SODIUM 125 MCG TABLET PO (05:53)
[2025-02-20 05:55] VITALS: PULSE 94
[2025-02-20 07:38] VITALS: BP 126/78; PULSE 93; TEMP 36.9; O2SAT 93
[2025-02-20 07:53] VITALS: PULSE 92
--- NOTE | 2025-02-20 09:15 | CM.NOTE ---
Rounds made with Dr. Gustafson, pt will discharge to home today. Discussed with pt risks of restarting Eliquis and when to return to ER. Pt will f/u with Dr. Esposito, GI and PCP. Pt verbalizes understanding of importance of f/u appt's. Pt continues to refuses and services for HH at discharge.
[2025-02-20] MEDS: ALLOPURINOL 100 MG TABLET PO (09:20)
[2025-02-20] MEDS: AMOXICILLIN/POT CLAV 875-125 MG TABLET 1 TAB PO (09:20)
[2025-02-20] MEDS: CARVEDILOL 6.25 MG TABLET PO (09:21)
[2025-02-20] MEDS: ESCITALOPRAM 10 MG TABLET PO (09:22)
[2025-02-20] MEDS: PANTOPRAZOLE SODIUM 40 MG TABLET.DR PO (09:23)
[2025-02-20] MEDS: FOLIC ACID 1 MG TABLET PO (09:23)
[2025-02-20] MEDS: THIAMINE MONONITRATE (VIT B1) 100 MG TABLET 200 MG PO (09:24)
--- NOTE | 2025-02-20 09:43 | SWNOTE1 ---
SW had a message from Gracie at [facility] and pt's walker has been approved and pt will need to go pick it up. SW to inform patient. SW to call [facility] to see if they accepted patient.
--- NOTE | 2025-02-20 09:48 | SWNOTE1 ---
SW spoke to [facility] and patient has been accepted and they scheduled a new pt apt on 02/27 @ 9:30am. SW to add apt to discharge paperwork and updated case management on walker and PCP.
--- NOTE | 2025-02-20 10:19 | SWNOTE1 ---
AYUSH updated patient that her walker is set for her to pharmacy picking technician from [facility] in [place]. SW also let pt know that SW did get her in with [facility] as her new PCP. SW expressed the importance of going to her follow up appointments. SW let her know all appointments will be listed in her discharge paperwork. SW asked if she had a ride home? She stated she was not sure as she has not called anyone yet to wake them up. SW asked if she could call anyone for her. Pt stated her boyfriend. Pt provided SW with Dada's number. SW did ask pt if she was ok with trips if boyfriend or family can't transport? Pt in agreement. SW call Dada and asked if he could transport. Initially, he voiced he could be here in the afternoon, then he stated it would actually be the evening, maybe 6:00. AYUSH let Dada know that we would set up transport with trips since Dada is unsure of time. AYUSH let Dada know that pt will have a few follow up apts that will be very important for her to go to. AYUSH also advised we did get her a walker from [facility] through her insurance. The walker is ready for pharmacy picking technician in [place]. Dada voiced he was going to [place] today and is familiar with where [place] is and he will pick it up. AYUSH called [facility] and set up transport. Pt can ambulate and does not need wheelchair. [facility] will be here around 11:20 to transport home. AYUSH notified pt's nurse of time.
--- NOTE | 2025-02-20 10:56 | P.DS_ITS ---
DS: Providers Provider Date of admission: 02/14/25 01:00 Primary care physician: Non-Staff PhysicianMD Consults: 02/14/25 Consult to Dietitian Routine Reason for consultation: unintentional weight loss Has provider been notified: Yes Consult to Shank Scourer Routine Has provider been notified: Yes Reason for consult:: Transportation 02/17/25 11:26 Occupational Therapy Eval and Treat Routine Reason for consultation: eval and treat, DC recs Physical Therapy Eval and Treat Routine Reason for consultation: eval and treat, DC recs Discharging clinician: HENRY LOMAX Anticipated date of discharge: 02/20/25 DS: Diagnosis Discharge Diagnosis (1) UTI (urinary tract infection): (2) Delirium due to general medical condition: (3) Hypomagnesemia: (4) Hypophosphatemia: (5) Hypothyroidism: (6) Chronic kidney disease: (7) Hypokalemia: (8) Hyponatremia: (9) Atrial fibrillation: Qualifiers: Atrial fibrillation type: longstanding persistent Qualified Code(s): I48.11 - Longstanding persistent atrial fibrillation (10) Anemia: DS: Summary Hospital Course Hospital Course: Miss Mckeon is a 60-year-old female who was admitted to the hospital the morning of February 14 with a chief complaint of confusion. She was found to have severe electrolyte abnormalities including hypokalemia, hypomagnesemia which was almost undetectable, hypocalcemia and hypophosphatemia. She was subsequently admitted to the hospital, she also has a history of acute kidney failure and has been on dialysis previously, she has a right temporary HD catheter, she took herself off dialysis roughly 1 month ago. She received adequate electrolyte replenishment, she has a history of alcohol dependency was likely explained her severe electrolyte abnormalities, she does not exhibit any signs or symptoms of alcohol withdrawal this hospitalization. Her TSH was checked and found to be elevated, her levothyroxine was increased slightly to 125 mcg daily recommended repeat check in 4 to 6 weeks after admission. Throughout her hospitalization her electrolyte abnormalities improved as expected with the replenishment however her kidney function Was elevated with a creatinine 3.75, this trended up throughout her hospitalization and peaked at 4.15.There is no indication for emergent or urgent dialysis at this point in time. The patient was also very apprehensive to discuss being put back on dialysis. She also had a drop in her hemoglobin throughout this admission. Her presenting hemoglobin was 10.5 which trended down, this was likely due to hemoconcentration and receiving IV fluids, she has a chronic anemia and her baseline appears between 7-8, she has a history of chronic A-fib and is on Eliquis for this. Her Eliquis was stopped early in her admission after sudden drop, I did have a long discussion with the patient about being transferred for potential workup including EGD and colonoscopy as her FOBT was positive. She declined this initially, I started her on heparin to see if she could tolerate anticoagulation and then the following morning her hemoglobin dropped to 6.9. There was no evidence of any overt bleeding, her stool remained normal- appearing. She did receive 1 unit PRBC on February 19. Her hemoglobin the following day was 8.4. I did speak with on-call gastroenterology at [facility] who reviewed her chart, Her iron studies are consistent with anemia of chronic disease/CKD, I do tend to agree with that given this anemia is been chronic for her and she is actually very near her baseline with no other evidence of bleeding, she does have a hemorrhoid which can explain her positive FOBT. He was also able to access records from [facility] in June of this past year which shows she has severe pulmonary hypertension, I was not aware of this. Repeat echocardiogram here shows an RVSP of 68. Though there is no indication for transfer for urgent EGD/colonoscopy, it is recommended to have 1 done at some point in time in the future for screening purposes. I did speak with [facility], they are unable to provide any anesthesia for her because of the severe RVSP. I discussed this with the patient, at this point in time she was not interested in being transferred to a tertiary care center. The morning of February 20, I discussed resuming her Eliquis as she has had a b aseline anemia for years, she denies any changes in her stool and she does not want to be off of her Eliquis either. I had a long talk with her about the risks of bleeding and also the risk of stroke, ultimately the patient stated she did want to resume her Eliquis without further workup for her anemia, I did tell her what to watch out for in regards to signs of bleeding and return to the emergency room for that. She was agreeable. She is at high risk to require dialysis again in the future, her creatinine was 4.15, her BUN trended up slightly however she was exhibiting no signs or symptoms of uremic encephalopathy, she was okay with the risks of being discharged home. I did place an order for outpatient labs to be done on February 24, she will have close follow-up in the nephrology office next week as well. Time Spent with Patient Time attestation: Total time spent providing and/or coordinating discharge services: Exam Narrative Exam Narrative: General: Awake alert, no acute distress HEENT: head atraumatic, moist mucous membranes CVS: regular rate and rhythm, no murmurs or gallops Respiratory: clear to auscultation bilaterally, no wheezing or crackles, symmetric expansion Chest: HD port in her right chest wall, dressing is CDI. No surrounding erythema. GI: soft, nondistended, nontender, positive bowel sounds Extremity: moves all extremities, no restrictions of movements, no calf tenderne ss, no edema, there are numerous small scabs on her legs in various sizes and stages of healing. No active bleeding on any of them. Neuro: AOx3, Moves all extremities in all planes of motion. Skin: dry, intact no rashes or lesions Constitutional Vital Signs, click to edit/add: Last Vital Signs Temp 98.4 F 02/20/25 07:38 Pulse 92 H 02/20/25 07:53 Resp 16 02/20/25 07:38 BP 126/78 02/20/25 07:38 Pulse Ox 93 L 02/20/25 07:38 O2 Del Method Room Air 02/20/25 07:38 DS: Data Data Completed and Pending Labs on day of discharge: Labs from last 24 hours 02/20/25 02/19/25 02/17/25 05:03 16:48 08:33 WBC 5.9 RBC 2.72 L Hgb 8.4 L Hct 25.3 L MCV 93.0 MCH 30.9 MCHC 33.2 RDW 15.0 Plt Count 193 MPV 9.2 L Sodium 136 133 L Potassium 5.1 5.3 H Chloride 103 103 Carbon Dioxide 22.6 23.6 Anion Gap 15.5 11.7 BUN 77.0 H* 78.0 H* Creatinine 4.15 H 4.16 H Est GFR ( Amer) 13 L 13 L Est GFR (Non-Af Amer) 11 L 11 L BUN/Creatinine Ratio 18.6 18.8 Glucose 145 H 101 Calcium 9.3 8.8 Phosphorus 4.1 Magnesium 2.1 Vitamin B1 Crossmatch See Detail 02/14/25 11:12 WBC RBC Hgb Hct MCV MCH MCHC RDW Plt Count MPV Sodium Potassium Chloride Carbon Dioxide Anion Gap BUN Creatinine Est GFR ( Amer) Est GFR (Non-Af Amer) BUN/Creatinine Ratio Glucose Calcium Phosphorus Magnesium Vitamin B1 72.7 Crossmatch Discharge Plan Discharge Disposition: Home, Self-Care Condition: Good Discharge Medications: New amoxicillin-pot clavulanate 875-125 mg Tablet 1 tab PO BID Qty: 4 0RF carvedilol 6.25 mg Tablet 6.25 mg PO BID 30 Days Qty: 60 0RF levothyroxine 125 mcg Tablet 125 mcg PO ACB Qty: 30 0RF thiamine mononitrate (vit B1) 100 mg Tablet 200 mg PO QD 30 Days Qty: 30 0RF Continued allopurinol 100 mg tablet 100 mg PO DAILY folic acid 1 mg tablet 1 mg PO DAILY Eliquis 2.5 mg tablet 2.5 mg PO DAILY cetirizine 5 mg tablet 5 mg PO DAILY PRN (Reason: allergy symptoms) amlodipine 5 mg tablet 5 mg PO QAM (DME) [facility] See Rx Instructions .Route Qty: 1 0RF Rx Instructions: As directed escitalopram oxalate 10 mg tablet 10 mg PO QAM tizanidine 2 mg tablet 2 mg PO BID PRN (Reason: muscle spasticity) trazodone 50 mg tablet 25 mg PO QPM Changed pantoprazole [Protonix] 40 mg tablet,delayed release (DR/EC) 40 mg PO BID 30 Days Qty: 60 0RF Discontinued carvedilol 12.5 mg tablet 12.5 mg PO BID midodrine 10 mg tablet 10 mg PO TID PRN (Reason: hypotension) levothyroxine 100 mcg tablet 100 mcg PO DAILY sevelamer HCl 800 mg tablet 800 mg PO TIDWM Activity: resume usual activities as tolerated Diet: advance to your usual diet Print Language: Yakut Patient Instructions: Thiamine (Vitamin B-1) (By mouth), Amoxicillin/Clavulanate Potassium (By mouth), Chronic Kidney Disease (DC) Tobacco Weigher/Parts Designer Instructions: Please molded goods spot picker sherman connor from [facility]. Address: [address] [place] [id number] Forms: Portal Instructions Follow Up Appointments: New patient appointment with [facility] on 02/27 @ 9:30am Address: [address] [place], [place] [id number] Please bring insurance card and ID Nephrology: Dr. Esposito March 04 at 1:40p [place] office [phone] Gastroenterology: Dr. Tee March 07 at 9:30a [place] Office [phone] Discharge location: Home
--- NOTE | 2025-02-20 11:50 | SWNOTE1 ---
SW received a call from nursing and pt was having trouble walking in to the [employer] bus. SW went down with case management, director of [facility], pt's nurse, and student. Pt was sitting on the [employer] bus. Pt voiced her legs just got weak. She voiced she is feeling fine now. The hydraulic lift driver stated Srikanth from [employer] was going to call SW. SW received call from Srikanth. [employer] is going to transport home and take a wheelchair and return the chair. AYUSH called boyfriend, Dada, and he will be at the home when pt arrives in 20 minutes. Dada voiced he will help pt in to the home. CM did ask pt about allowing a home health nurse come in for a short time for medication education and to assist with changing dressing on her port. Pt is now in agreement. AYUSH to reach out to [facility]. AYUSH let pt know that SW will call her today with name of company. AYUSH reached out to intake team at [facility], waiting to hear back.
--- NOTE | 2025-02-20 11:54 | SWNOTE1 ---
AYUSH heard back from [facility] and they are in agreement to follow and will have there physician group follow until her new pt apt with [facility]. SW to send orders and updates to [facility].
--- NOTE | 2025-02-20 12:22 | SWNOTE1 ---
AYUSH faxed CRF, dc summary, dc med rec, and physician notes from the past 2 days to [facility].
--- NOTE | 2025-02-21 09:48 | SWNOTE1 ---
AYUSH received an email from Liz at [facility]: I'm hoping you can clarify for me, are we supposed to be flushing her Dialysis cath and do the dressing changes?? I'm looking into see if we are able to do that as it may be too dangerous to do that in the home. Was the plan for it to stay in for some reason? Is she planning on starting dialysis again? AYUSH did respong and let her know that pt is not getting Dialysis at this time and is supposed to follow up with Food Processing Scientist. AYUSH let Liz know that pt has not received Dialysis since leaving [place] over a month ago. AYUSH also let Liz know that AYUSH is reaching out to case managment to clarify on flushing or dressing changes only.
--- NOTE | 2025-02-21 13:25 | CM.DCFOLLOWU ---
1st attempt. No answer
== END 2025-02-20 11:26 | disposition home health service (06) | DRG 640 ==
LOC: ER 02-14 00:04 → MS 02-14 14:55
PROVIDERS: Internal Medicine; Admitting Provider Internal Medicine; Emergency Provider Emergency Medicine; Visit Provider Internal Medicine
DX: E83.42 Hypomagnesemia (principal); G93.41 Metabolic encephalopathy; F05 Delirium due to known physiological condition; N39.0 Urinary tract infection, site not specified; N18.4 Chronic kidney disease, stage 4 (severe); I48.11 Longstanding persistent atrial fibrillation; E87.1 Hypo-osmolality and hyponatremia; E87.20 Acidosis, unspecified; E87.6 Hypokalemia; E83.51 Hypocalcemia; E03.9 Hypothyroidism, unspecified; E83.39 Other disorders of phosphorus metabolism; Z79.01 Long term (current) use of anticoagulants; F17.200 Nicotine dependence, unspecified, uncomplicated; Z79.890 Hormone replacement therapy; F10.20 Alcohol dependence, uncomplicated; R41.82 Altered mental status, unspecified; D64.9 Anemia, unspecified; Z87.19 Personal history of other diseases of the digestive system; E87.5 Hyperkalemia; I27.20 Pulmonary hypertension, unspecified; D63.1 Anemia in chronic kidney disease; I12.9 Hypertensive chronic kidney disease with stage 1 through stage 4 chronic kidney disease, or unspecified chronic kidney disease; F41.9 Anxiety disorder, unspecified; I25.10 Atherosclerotic heart disease of native coronary artery without angina pectoris; R19.5 Other fecal abnormalities
CPT/HCPCS: 36415; 36430; 70450; 71045; 80048; 80053; 80307; 80320; 81001; 82140; 83540; 83550; 83735; 83880; 84100; 84425; 84443; 84466; 84484; 85014; 85018; 85025; 85027; 85730; 86850; 86900; 86901; 86923; 87040; 87086; 87088; 87186; 93005; 93306; 96365; 96367; 96375; 97161; 97165; 99285; 99406; G0328; J0612; J0744; J1644; J3411; J3475; J3480; P9016; Q0162